=== PATIENT | female | born 1955 | race Caucasian/White ===

== ENCOUNTER 2020-09-02 11:09 | Inpatient (IN) | payer MEDICARE, MEDICAID, SELFPAY ==
[2020-09-02] VITALS (13 sets, daily range): BP systolic 137–173; BP diastolic 70–113; PULSE 79–84; RESP 16–20; TEMP 36.6–37.1; O2SAT 93–99; BMI 37.4; BMI 35.6
--- NOTE | 2020-09-02 11:23 | EKG12_ITS ---
Test Reason : SOB Blood Pressure : / mmHG Vent. Rate : 082 BPM Atrial Rate : 082 BPM P-R Int : 156 ms QRS Dur : 076 ms QT Int : 396 ms P-R-T Axes : 060 060 029 degrees QTc Int : 462 ms Normal sinus rhythm Septal infarct , age undetermined Abnormal ECG Confirmed by HEYDI ROSS, GODWIN ([id number]), fashion editor JASON PEREIRA ([id number]) on 09/06/2020 1:04:32 PM Referred By: MICHELLE/MARLEN Confirmed By:GODWIN SOLIZ MD
--- NOTE | 2020-09-02 11:30 | RAD_ITS ---
STUDY: X-RAY CHEST REASON FOR EXAM: Female, 65 years old. Worsening shortness of breath TECHNIQUE: Single AP portable view of the chest. COMPARISON: None. FINDINGS: EKG leads overlie the chest The lungs are expanded with superimposed interstitial edema, and bilateral pleural effusions, right greater than left. Findings suggest CHF but could also be seen with pneumonitis, or Covid pneumonia. Follow-up recommended to ensure resolution Normal size heart. Normal mediastinum and sol. Normal visualized pulmonary arteries. Normal visualized aortic arch and descending thoracic aorta. There are diffuse degenerative changes of the visualized thoracic spine. There is degenerative osteoarthritis of the bilateral shoulders. Sclerotic area within the right humeral head is likely a bone infarct. If however there is pain localized to this area, further evaluation with bone scan would be recommended There is no demonstrated abnormality of the visualized soft tissue structures of the upper abdomen. RAD/Chest 1 View (Portable) IMPRESSION: Diffuse interstitial edema with bilateral pleural effusions. Differential as described above, follow-up recommended to sure resolution. 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
--- NOTE | 2020-09-02 11:30 | EDS_ITS ---
HPI History of Present Illness Chief Complaint: Chest Pain Informant: patient Narrative Narrative: Patient is a 65-year-old female with a past medical history of COPD, CAD with stents, CHF who presents to the emergency department for shortness of breath and chest pain. She states that she has been feeling short of breath over the past 2 weeks. Has been progressively getting worse. She usually only wears supplemental oxygen at nighttime but has required it throughout the day. She is been wearing 3 L. She has had a mild cough but nonproductive of sputum. She denies any fevers or chills. No known sick contacts. She has been vaccinated for Covid. She does have chronic swelling of her lower extremities which do not feel worse than normal. She does have orthopnea. She denies any abdominal pain or nausea/vomiting/diarrhea. No urinary symptoms. She has a former smoking history. She has been using breathing treatments over the past week which have not been giving significant relief. At PCPs office she was satting in the mid 70s on 3 L. They did bump her O2 up and got her oxygen to the mid 90s. [facility] Medical History (Updated 09/02/20 @ 16:[address] Lukasz Roldan, ) Asthma Atrial fibrillation CHF (congestive heart failure) COPD (chronic obstructive pulmonary disease) Depression Diabetes type 2, controlled Former smoker HTN (hypertension) Hypothyroid Myocardial infarct On home O2 Home Medications albuterol sulfate 1 mg INHALATION Q6H PRN 09/02/20 [History Last Taken 09/02/20] atorvastatin 80 mg PO DAILY 09/02/20 [History Last Taken 09/02/20] bupropion HCl 300 mg PO DAILY 09/02/20 [History Last Taken 09/02/20] cholecalciferol (vitamin D3) [Vitamin D3] 50 mcg PO DAILY 09/02/20 [History Last Taken 09/02/20] fluticasone furoate-vilanterol [Breo Ellipta] 1 inh INHALATION DAILY 09/02/20 [History Last Taken 09/02/20] fluticasone propionate 1 spray INTRANASAL DAILY 09/02/20 [History Last Taken 09/02/20] furosemide 80 mg PO DAILY 09/02/20 [History Last Taken 09/02/20] insulin detemir U-100 [Levemir Flexpen] 35 unit SUBCUT QHS 09/02/20 [History Last Taken 09/01/20] insulin lispro See Protocol SUBCUT TID 09/02/20 [History Last Taken 09/02/20] ipratropium-albuterol [DuoNeb] 3 ml INHALATION Q4H PRN 09/02/20 [History Last Taken 09/02/20] levothyroxine 88 mcg PO DAILY 09/02/20 [History Last Taken 09/02/20] lisinopril 10 mg PO DAILY 09/02/20 [History Last Taken 09/02/20] lorazepam 0.5 mg PO DAILY PRN 09/02/20 [History Last Taken Unknown] lorazepam 1 mg PO QHS 09/02/20 [History Last Taken 09/01/20] metoprolol succinate 50 mg PO DAILY 09/02/20 [History Last Taken 09/02/20] montelukast 10 mg PO DAILY 09/02/20 [History Last Taken 09/02/20] paroxetine HCl 30 mg PO DAILY 09/02/20 [History Last Taken 09/02/20] trazodone 100 mg PO QHS 09/02/20 [History Last Taken 09/01/20] Allergy/AdvReac Type Severity Reaction Status Date / Time Sulfa (Sulfonamide Allergy Anaphylaxis Verified 09/02/20 11:11 Antibiotics) sulfur dioxide Allergy Anaphylaxis Verified 09/02/20 11:11 Surgical History (Updated 09/02/20 @ 11:18 by Alba Allen) H/O heart artery stent H/O right heart catheterization Tubal ligation status Social History Smoking Status: Former smoker ROS ROS ED Constitutional Constitutional ED: Denies chills or fever(s) Eyes Eyes: Denies change in vision ENT ENT ED: Denies epistaxis or rhinorrhea Cardiovascular Cardiovascular: Denies palpitations Respiratory/Chest Respiratory/Chest: Reports cough and dyspnea; Denies sputum Gastrointestinal Gastrointestinal: Denies abdominal pain, diarrhea, nausea or vomiting Genitourinary Genitourinary ED: Denies dysuria, hematuria or urinary frequency Musculoskeletal Musculoskeletal: Denies back pain or neck pain Integumentary Denies rash Neurologic Neurologic: Denies dizziness, headache(s) or weakness EXAM Physical Exam Const Vital Signs: 09/02/20 11:12 09/02/20 11:19 09/02/20 11:23 Temperature 98.6 F Temperature Source Temporal Pulse Rate 81 Respiratory Rate 20 H Respiratory Effort Short of Breath Respiratory Pattern Normal Blood Pressure 148/75 H Blood Pressure Mean 99 Pulse Ox 99 99 Oxygen Delivery Method Nasal Cannula Nasal Cannula Oxygen Flow Rate (L/min) 3 3 09/02/20 12:10 09/02/20 13:05 Temperature Temperature Source Pulse Rate 84 84 Respiratory Rate 18 18 Respiratory Effort Respiratory Pattern Blood Pressure 137/113 H 148/111 H Blood Pressure Mean 121 123 Pulse Ox 99 97 Oxygen Delivery Method Nasal Cannula Nasal Cannula Oxygen Flow Rate (L/min) 3 3 Positive well nourished and well developed General Appearance ED: well developed and NAD HEENT Reports normocephalic, head/scalp atraumatic and moist mucous membranes Eyes PERRL and EOMs intact bilaterally Neck supple Chest Wall inspection of chest normal Resp normal respiratory effort and clear to auscultation bilaterally Auscultation: Negative for rales, rhonchi or wheezes Cardio regular rate, regular rhythm and no murmurs GI normal to inspection, nondistended, normoactive bowel sounds and non-tender Palpation: soft; Negative for guarding or rebound tenderness present Back/Spine no CVA tenderness Extremity normal to inspection Extremity Narrative: Trace edema with chronic lymphedematous changes of bilateral lower extremities. General Extremety ED: Negative for tenderness Neuro oriented x3, CN's II-XII intact bilaterally and no sensory deficits noted Sensorium / Orientation: alert Motor Exam: strength 5/5 throughout Psych mental status grossly normal Skin no rashes or lesions noted MDM MDM MDM Narrative Medical decision making narrative: Patient presents to the ED for shortness of breath over the past 2 weeks. This has been associate with a nonproductive cough. She does get intermittent chest pains. She was at her PCPs office today and was found to be hypoxic. She was transferred to the ED. She is on supplemental oxygen satting 99% currently. Will check basic lab work, EKG and chest x-ray. Patient's lab work did not reveal a high white blood cell count. She is mildly anemic. Potassium is mildly low but otherwise no significant electrolyte disturbance. Her blood sugar is 303. Her BNP is mildly elevated. Troponin within normal limits. Given patient's hypoxia will require hospitalization. She is given a dose of Lasix here in the ED. She otherwise has remained stable throughout ED stay. She understands and is agreeable with this plan. Lab Data Labs: Laboratory Results - last 24 hr 09/02/20 09/02/20 09/02/20 11:25 11:25 11:25 WBC 7.7 RBC 3.88 L Hgb 11.5 L Hct 35.7 L MCV 92.0 MCH 29.6 MCHC 32.2 RDW Std Deviation 43.6 RDW Coeff of Magen 13.1 Plt Count 164 MPV 10.9 Immature Gran % (Auto) 0.300 Neut % (Auto) 79.1 H Lymph % (Auto) 13.5 L [place] % (Auto) 5.7 Eos % (Auto) 0.9 Baso % (Auto) 0.5 Absolute Neuts (auto) 6.1 Absolute Lymphs (auto) 1.04 Nucleated RBC % 0 Sodium 138 Potassium 3.2 L Chloride 103 Carbon Dioxide 33.0 H Anion Gap 2 L BUN 13 Creatinine 0.83 Estim Creat Clear Calc 61.62 Est GFR (MDRD) Af Amer 89 Est GFR (MDRD) Non-Af 74 BUN/Creatinine Ratio 15.7 Glucose 303 H Calcium 8.7 Magnesium 1.7 Troponin I High Sens 18.8 B-Natriuretic Peptide 138.8 H Radiography Chest X-Ray - ED: 1 View (Portable x-ray interpreted by myself. Right-sided pleural effusion worse than left. Pulmonary vascular congestion present. Agree with radiologist interpretation.) Diagnostic Testing: Radiology Impression Chest X-Ray 09/02/20 11:30 IMPRESSION: Diffuse interstitial edema with bilateral pleural effusions. Differential as described above, follow-up recommended to sure resolution. Likely bone infarct in the right humeral head Electronically Signed: Ken Marquez MD at 11:49 EDT , Service support , EKG Initial EKG: Attestation: I personally reviewed and interpreted this EKG as follows: (R ate of 82 bpm and normal sinus rhythm. Normal intervals. Normal axis. No significant ST elevations or depressions. No T wave abnormalities.) Discharge Plan Dx/Rx/DC Orders Clinical Impression: Acute exacerbation of CHF (congestive heart failure), Hypoxia Disposition Disposition: Acute Care Hospital [facility] Discharge Date/Time: 09/02/20 14:28
[2020-09-02 11:31] LABS: Absolute Lymphocyte Count 1.04 X10^3/uL (0.83-4.51); Absolute Neutrophil Count 6.1 X10^3/uL (2.0-7.7); Basophil# 0.04 X10^3/uL; Basophil% 0.5 % (0-1); Eosinophil# 0.07 X10^3/uL; Eosinophils% 0.9 % (0-5); Hematocrit 35.7 % (37-47); Hemoglobin 11.5 g/dL (12.0-15.0); Lymphocyte # 1.04 X10^3/ul (0.83-4.51); Lymphocyte % 13.5 % (19-41); Mean Corp Hgb Conc 32.2 g/dL (32-36); Mean Corpuscular Hgb 29.6 pg (27.0-32.0); Mean Platelet Vol. 10.9 fl (6.2-12.0); Monocyte# 0.44 X10^3/uL; Monocyte% 5.7 % (0-10); NRBC Flagged by Analyzer 0 % (0-5); Neutrophil # 6.07 X10^3/uL (2.7-7.7); Neutrophil % 79.1 % (47-70); Platelet Count 164 K/mm3 (150-450); RBC Distribution Width CV 13.1 % (11.6-14.6); RBC Distribution Width SD 43.6 fl (35.1-43.9); Red Blood Count 3.88 M/mm3 (4.2-5.4); White Blood Count 7.7 K/mm3 (4.4-11.0)
[2020-09-02 11:49] LABS: BNP,B-Type NATRIURETIC PEPTIDE 138.8 pg/mL (0-100)
[2020-09-02 12:00] LABS: Anion Gap 2 (5-15); BUN 13 mg/dL (7-18); BUN/Creat Ratio 15.7 RATIO (10-20); Calcium,Total 8.7 mg/dL (8.5-10.1); Chloride 103 mmol/L (98-107); Creatinine, Serum 0.83 mg/dL (0.55-1.02); EST Glomerular Filtration Rate 74 mL/min (>60); Est Glom Filt Rate - Afr Amer 89 mL/min (>60); Estimated Creatinine Clearance 61.62 ml/min; Glucose 303 mg/dL (74-106); Magnesium 1.7 mg/dL (1.6-2.6); Potassium 3.2 mmol/L (3.5-5.1); Sodium Level 138 mmol/L (136-145); Troponin-I HS 18.8 pg/mL (3.0-53.7)
[2020-09-02] MEDS: Potassium Chloride Oral Tablet 20 MEQ 40 MEQ PO (12:18)
[2020-09-02] MEDS: Furosemide 40 MG/4 ML Vial IV ×3 (12:18→22:31)
--- NOTE | 2020-09-02 14:01 | HP.PCM.HOS_ITS ---
HPI - General General Date of Admission: 09/02/20 HPI Narrative SONA WILSON, is a 65 F who presents with shortness of breath over the last 2 weeks. She has a history of COPD and heart failure and she has chronic edema in her lower extremities which she has noticed that they have gotten any worse however she has noticed that she has difficulty lying flat because of worsening shortness of breath and thinks it may be the right leg might be a little bit more swollen than the left, she does deny any calf pain. She normally wears 3 L at night to sleep but she has been wearing oxygen throughout the day she says that this happens on occasion so this is not completely atypical. Troponin in the ER was unremarkable chest x-ray demonstrated a right-sided pleural effusion as well as vascular congestion. [facility] Medical History (Updated 09/02/20 @ 16:[address] Lukasz Roldan, ) Asthma Atrial fibrillation CHF (congestive heart failure) COPD (chronic obstructive pulmonary disease) Depression Diabetes type 2, controlled Former smoker HTN (hypertension) Hypothyroid Myocardial infarct On home O2 Home Medications albuterol sulfate 1 mg INHALATION Q6H PRN 09/02/20 [History Last Taken 09/02/20] atorvastatin 80 mg PO DAILY 09/02/20 [History Last Taken 09/02/20] bupropion HCl 300 mg PO DAILY 09/02/20 [History Last Taken 09/02/20] cholecalciferol (vitamin D3) [Vitamin D3] 50 mcg PO DAILY 09/02/20 [History Last Taken 09/02/20] fluticasone furoate-vilanterol [Breo Ellipta] 1 inh INHALATION DAILY 09/02/20 [History Last Taken 09/02/20] fluticasone propionate 1 spray INTRANASAL DAILY 09/02/20 [History Last Taken 09/02/20] furosemide 80 mg PO DAILY 09/02/20 [History Last Taken 09/02/20] insulin detemir U-100 [Levemir Flexpen] 35 unit SUBCUT QHS 09/02/20 [History Last Taken 09/01/20] insulin lispro See Protocol SUBCUT TID 09/02/20 [History Last Taken 09/02/20] ipratropium-albuterol [DuoNeb] 3 ml INHALATION Q4H PRN 09/02/20 [History Last Taken 09/02/20] levothyroxine 88 mcg PO DAILY 09/02/20 [History Last Taken 09/02/20] lisinopril 10 mg PO DAILY 09/02/20 [History Last Taken 09/02/20] lorazepam 0.5 mg PO DAILY PRN 09/02/20 [History Last Taken Unknown] lorazepam 1 mg PO QHS 09/02/20 [History Last Taken 09/01/20] metoprolol succinate 50 mg PO DAILY 09/02/20 [History Last Taken 09/02/20] montelukast 10 mg PO DAILY 09/02/20 [History Last Taken 09/02/20] paroxetine HCl 30 mg PO DAILY 09/02/20 [History Last Taken 09/02/20] trazodone 100 mg PO QHS 09/02/20 [History Last Taken 09/01/20] Allergy/AdvReac Type Severity Reaction Status Date / Time Sulfa (Sulfonamide Allergy Anaphylaxis Verified 09/02/20 11:11 Antibiotics) sulfur dioxide Allergy Anaphylaxis Verified 09/02/20 11:11 Family History (Updated 09/02/20 @ 18:[address] Lalo Cooper MD) Grandmother Diabetes Mother Heart disease Surgical History (Updated 09/02/20 @ 11:18 by Alba Allen) H/O heart artery stent H/O right heart catheterization Tubal ligation status Social History Smoking Status: Former smoker ROS Constitutional Constitutional: Denies chills, fatigue, fever(s) or malaise Eyes Eyes: Denies blurry vision ENT HEENT: Denies headache(s) or nasal discharge Cardiovascular Cardiovascular: Reports dyspnea on exertion and orthopnea; Denies chest pain or syncope Respiratory/Chest Respiratory/Chest: Reports cough and shortness of breath at rest; Denies sh ortness of breath with exertion Gastrointestinal Gastrointestinal: Denies constipation, diarrhea, nausea or vomiting Genitourinary Genitourinary: Denies dysuria Neurologic Neurologic: Denies focal weakness, numbness or tremor(s) Psychiatric Psychiatric: Denies anxiety or depression Vital Signs Vital Signs Vital Signs: 09/02/20 11:12 09/02/20 11:19 09/02/20 11:23 Temperature 98.6 F Temperature Source Temporal Pulse Rate 81 Respiratory Rate 20 H Respiratory Effort Short of Breath Respiratory Pattern Normal Blood Pressure 148/75 H Blood Pressure Mean 99 Pulse Ox 99 99 Oxygen Delivery Method Nasal Cannula Nasal Cannula Oxygen Flow Rate (L/min) 3 3 09/02/20 12:10 09/02/20 13:05 Temperature Temperature Source Pulse Rate 84 84 Respiratory Rate 18 18 Respiratory Effort Respiratory Pattern Blood Pressure 137/113 H 148/111 H Blood Pressure Mean 121 123 Pulse Ox 99 97 Oxygen Delivery Method Nasal Cannula Nasal Cannula Oxygen Flow Rate (L/min) 3 3 Weight Weight: 224 lb 13.944 oz Body Mass Index (BMI) 37.4 Physical Exam Const alert, oriented x3 and no apparent distress General Appearance: cooperative HEENT normocephalic Mouth: dry mucous membranes Eyes PERRL, EOMs intact bilaterally and conjunctivae normal Neck supple and no JVD Resp normal respiratory effort, no retractions, no use of accessory muscles and clear to auscultation bilaterally Auscultation: diminished lung sounds; Negative for crackles, rales, rhonchi or wheezes Cardio regular rate, regular rhythm, S1 normal heart sound, S2 normal heart sound and no murmurs GI soft to palpation, non-tender and non-distended; Negative for hepatosplenomegaly Extremity no clubbing, cyanosis or edema Skin no rashes or lesions noted General Skin Exam: venous stasis Neuro no focal motor deficits and no sensory deficits noted Psych affect normal Appearance: appropriate Results Lab / Micro Data Result Diagrams: 09/02/20 11:25 09/02/20 11:25 Labs: Laboratory Results - last 24 hr 09/02/20 09/02/20 09/02/20 11:25 11:25 11:25 WBC 7.7 RBC 3.88 L Hgb 11.5 L Hct 35.7 L MCV 92.0 MCH 29.6 MCHC 32.2 RDW Std Deviation 43.6 RDW Coeff of Magen 13.1 Plt Count 164 MPV 10.9 Immature Gran % (Auto) 0.300 Neut % (Auto) 79.1 H Lymph % (Auto) 13.5 L [place] % (Auto) 5.7 Eos % (Auto) 0.9 Baso % (Auto) 0.5 Absolute Neuts (auto) 6.1 Absolute Lymphs (auto) 1.04 Nucleated RBC % 0 Sodium 138 Potassium 3.2 L Chloride 103 Carbon Dioxide 33.0 H Anion Gap 2 L BUN 13 Creatinine 0.83 Estim Creat Clear Calc 61.62 Est GFR (MDRD) Af Amer 89 Est GFR (MDRD) Non-Af 74 BUN/Creatinine Ratio 15.7 Glucose 303 H Calcium 8.7 Magnesium 1.7 Troponin I High Sens 18.8 B-Natriuretic Peptide 138.8 H Micro: Microbiology 09/02/20 11:56 SARS-CoV-2 Antigen (Rapid) - Final Mucosa - Nose Radiology Impression Chest X-Ray 09/02/20 11:30 IMPRESSION: Diffuse interstitial edema with bilateral pleural effusions. Differential as described above, follow-up recommended to sure resolution. 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 Acute on chronic CHF exacerbation of unknown type/HTN/HLD/CAD status post stent -We will place her on IV Lasix 3 times daily and obtain an echo as we have no cardiac history in our system -We will continue with her home blood pressure medications -She does not appear to be on aspirin or Plavix or a statin -We will obtain a lower extremity duplex secondary to her believe that her right leg is bigger than her left 2. DM2 -Continue with 35 units of Lantus overnight and placed on a sliding scale insulin -Accu-Cheks AC at bedtime 3. COPD -Does not appear to be in exacerbation, will continue with her home inhalers -If no improvement in her respiratory status in a day or 2 with diuresis, may need to add steroids -Continue with montelukast DVT: Lovenox Charges/Coding Visit Charges Inpatient E&M: 12644 Init Hosp L3
--- NOTE | 2020-09-02 14:20 | ED.RN ---
UPDATED NURSE [facility]EMAN[facility] AT [facility].
--- NOTE | 2020-09-02 14:59 | ECHOD_ITS ---
Reason For Study: CHF Procedure This was a 2D Doppler, Color Flow transthoracic echocardiogram. The study was technically difficult. Exam performed portable in patient room. Left Ventricle Normal LV size. The estimated ejection fraction is 55 %. Left ventricular systolic function is normal. Stage 2 diastolic dysfunction. No regional wall motion abnormalities noted. Right Ventricle Normal RV size. Normal systolic function. Atria Normal left atrium. Normal right atrium. Mitral Valve Moderate focal mitral valve calcification of the anterior leaflet. Moderate (2+) eccentric mitral valve insufficiency. Tricuspid Valve Normal tricuspid valve. Moderately severe (3+) tricuspid valve insufficiency. Pulmonary artery systolic pressure is 76 mmHg. Severe pulmonary hypertension. Aortic Valve Trisinus/trileaflet aortic valve. Mild (1+) aortic valve insufficiency. Pulmonic Valve Normal pulmonic valve. Great Vessels Normal aortic root. The pulmonary artery is normal size. No collapse of the inferior vena cava. Pericardium/Pleural No pericardial effusion. Medication Definity deferred d/t elevated PAP. MMode/2D Measurements & Calculations LVIDd: 4.1 cm IVSd: 1.1 cm Ao root diam: 3.3 cm LVIDs: 2.9 cm LVPWd: 1.1 cm RVDd: 3.1 cm FS: 28.4 % LAV(MOD-bp): 52.4 ml LA A4 area: 19.5 cm2 LA dimension(2D): 4.8 cm LAV(MOD-bp) Indexed: 25.6 ml/m2 LAV(MOD-sp2): 55.4 ml LAV(MOD-sp4): 47.8 ml RA A4 area: 14.7 cm2 Time Measurements MV dec time: 0.18 sec Doppler Measurements & Calculations MV E max timothy: 171.5 cm/sec Lat Peak E' Timothy: 5.4 cm/sec Med Peak E' Timothy: 5.2 cm/sec MV A max timothy: 90.0 cm/sec E/E' lat: 32.0 E/E' med: 32.8 MV E/A: 1.9 Ao V2 max: 114.4 cm/sec LV V1 max: 74.6 cm/sec PA V2 max: 100.7 cm/sec Ao max P.2 mmHg LV V1 max P.2 mmHg PI end-d timothy: 144.1 cm/sec TR max timothy: 422.6 cm/sec TR max P.4 mmHg ECHO/Echo Complete Interpretation Summary Normal LV size. The estimated ejection fraction is 55 %. Left ventricular systolic function is normal. Stage 2 diastolic dysfunction. Pulmonary artery systolic pressure is 76 mmHg. Severe pulmonary hypertension. Moderate (2+) eccentric mitral valve insufficiency. Ordering Physician: Lalo Cooper Referring Physician: [place] PETIT Performed By: Nancie, Rose, RDCS, RVT
[2020-09-02] MEDS: 0.9% Saline Lock 10 ML Syringe IV ×2 (15:41→22:31)
[2020-09-02] MEDS: Insulin Lispro 100 UNIT/ML INSULN.PEN SC ×2 (17:29→22:23)
[2020-09-02 17:31] LABS: Bedside Glucose 235 mg/dL (70-110)
--- NOTE | 2020-09-02 18:05 | VDLE_ITS ---
Reason For Study: SWELLING RIGHT GSV is normal. CFV is compressible, spontaneous, phasic, competent and demonstrates normal augmentation. FV is compressible, spontaneous, phasic, competent and demonstrates normal augmentation. POP V is compressible, spontaneous, phasic, competent and demonstrates normal augmentation. T/P Trunk is compressible. PTV is compressible. RT PerV is compressible. Procedure This is a venous duplex using B-mode, color flow and spectral Doppler. Exam performed portable in patient room. The exam was diagnostic. A preliminary report was called and/or faxed to Graciela RN & PCU. VL/Venous Duplex US, Unilateral Interpretation Summary There is no evidence of right lower extremity deep vein thrombosis. Right great saphenous vein appears patent and compressible segmentally. Ordering Physician: Lalo Cooper Referring Physician: Froy Gonzales Performed By: Peyton Shaw RVT, RDCS and Student
[2020-09-02] MEDS: traZODone 100 MG Tablet PO (22:23)
[2020-09-02] MEDS: LORazepam 1 MG Tablet PO (22:23)
[2020-09-02 22:36] LABS: Bedside Glucose 197 mg/dL (70-110)
[2020-09-03] VITALS (11 sets, daily range): BP systolic 149–170; BP diastolic 73–96; PULSE 84–91; RESP 17–18; TEMP 36.6–36.7; O2SAT 93–98
[2020-09-03 06:02] LABS: Absolute Neutrophil Count 5.5 X10^3/uL (2.0-7.7); Basophil# 0.04 X10^3/uL; Basophil% 0.6 % (0-1); Eosinophils% 1.4 % (0-5); Hematocrit 35.4 % (37-47); Hemoglobin 11.2 g/dL (12.0-15.0); Lymphocyte % 15.2 % (19-41); Mean Corp Hgb Conc 31.6 g/dL (32-36); Mean Corpuscular Hgb 29.4 pg (27.0-32.0); Mean Corpuscular Volume 92.9 fL (81-99); Mean Platelet Vol. 10.8 fl (6.2-12.0); Monocyte# 0.53 X10^3/uL; Monocyte% 7.3 % (0-10); NRBC Flagged by Analyzer 0 % (0-5); Neutrophil # 5.45 X10^3/uL (2.7-7.7); Neutrophil % 74.9 % (47-70); Platelet Count 166 K/mm3 (150-450); RBC Distribution Width SD 44.1 fl (35.1-43.9); Red Blood Count 3.81 M/mm3 (4.2-5.4); White Blood Count 7.3 K/mm3 (4.4-11.0)
[2020-09-03] MEDS: Furosemide 40 MG/4 ML Vial IV ×3 (06:17→20:54)
[2020-09-03] MEDS: Levothyroxine 88 MCG Tablet PO (06:17)
[2020-09-03] MEDS: 0.9% Saline Lock 10 ML Syringe IV ×3 (06:17→20:53)
[2020-09-03] MEDS: Insulin Lispro 100 UNIT/ML INSULN.PEN SC ×5 (06:24→20:53)
[2020-09-03 06:30] LABS: Bedside Glucose 199 mg/dL (70-110)
[2020-09-03 06:38] LABS: Anion Gap 6 (5-15); BUN 12 mg/dL (7-18); BUN/Creat Ratio 15.9 RATIO (10-20); Calcium,Total 8.6 mg/dL (8.5-10.1); Chloride 106 mmol/L (98-107); Creatinine, Serum 0.75 mg/dL (0.55-1.02); EST Glomerular Filtration Rate 82 mL/min (>60); Est Glom Filt Rate - Afr Amer 99 mL/min (>60); Estimated Creatinine Clearance 68.19 ml/min; Glucose 222 mg/dL (74-106); Potassium 3.3 mmol/L (3.5-5.1); Sodium Level 143 mmol/L (136-145)
[2020-09-03] MEDS: Potassium Chloride Oral Tablet 20 MEQ 40 MEQ PO (07:43)
[2020-09-03] MEDS: Enoxaparin 40 MG/0.4 ML Syringe SC (09:17)
[2020-09-03] MEDS: Lisinopril 10 MG Tablet PO (09:17)
[2020-09-03] MEDS: buPROPion (XL) 300 MG TABLET.XL PO (09:17)
[2020-09-03] MEDS: Montelukast 10 MG Tablet PO (09:17)
[2020-09-03] MEDS: Metoprolol(XL)Succ 50 MG Tablet PO (09:17)
[2020-09-03] MEDS: PARoxetine 10 MG Tablet 30 MG PO (09:17)
[2020-09-03] MEDS: Fluticasone 0.05% 1 SPRAY NASAL.SRY NASAL (09:17)
--- NOTE | 2020-09-03 10:21 | CASEMGMT ---
Patient is from [facility]. GREG spoke with patient and she plans on returning to [facility] at discharge. She will need transportation. GREG faxed updates to [facility] and wrote on fax faces sheet that she may be discharged over the weekend. Green sheet on chart. Plan: d/c back to [facility] CHIQUI DASILVA
[2020-09-03 11:16] LABS: Bedside Glucose 298 mg/dL (70-110)
--- NOTE | 2020-09-03 11:17 | PN.HOSP_ITS ---
Subjective Subjective Breathing easier today though still needing 3 L of oxygen during the day Objective Data Objective Data Vital Signs: Vital Signs Temp Pulse Resp BP Pulse Ox 98.0 F 89 18 170/80 H 98 09/03/20 09:13 09/03/20 09:17 09/03/20 09:13 09/03/20 09:13 09/03/20 09:13 Oxygen Flow Rate (L/min) 3 Oxygen Delivery Method Nasal Cannula Weight: 214 lb 1.102 oz Body Mass Index (BMI) 35.6 Intake & Output: Intake and Output for Last 24 Hours 09/02/20 09/03/20 09/04/20 03:59 03:59 03:59 Intake Total 560 / 560 Balance 560 / 560 Lab / Micro Data Result Diagrams: 09/03/20 05:40 09/03/20 05:40 Labs: Laboratory Results - last 24 hr 09/02/20 09/02/20 09/02/20 11:25 11:25 11:25 WBC 7.7 RBC 3.88 L Hgb 11.5 L Hct 35.7 L MCV 92.0 MCH 29.6 MCHC 32.2 RDW Std Deviation 43.6 RDW Coeff of Magen 13.1 Plt Count 164 MPV 10.9 Immature Gran % (Auto) 0.300 Neut % (Auto) 79.1 H Lymph % (Auto) 13.5 L [place] % (Auto) 5.7 Eos % (Auto) 0.9 Baso % (Auto) 0.5 Absolute Neuts (auto) 6.1 Absolute Lymphs (auto) 1.04 Nucleated RBC % 0 Sodium 138 Potassium 3.2 L Chloride 103 Carbon Dioxide 33.0 H Anion Gap 2 L BUN 13 Creatinine 0.83 Estim Creat Clear Calc 61.62 Est GFR (MDRD) Af Amer 89 Est GFR (MDRD) Non-Af 74 BUN/Creatinine Ratio 15.7 Glucose 303 H Calcium 8.7 Magnesium 1.7 Troponin I High Sens 18.8 B-Natriuretic Peptide 138.8 H POC Glucose 09/02/20 09/02/20 09/03/20 17:23 22:19 05:40 WBC 7.3 RBC 3.81 L Hgb 11.2 L Hct 35.4 L MCV 92.9 MCH 29.4 MCHC 31.6 L RDW Std Deviation 44.1 H RDW Coeff of Magen 13.0 Plt Count 166 MPV 10.8 Immature Gran % (Auto) 0.600 Neut % (Auto) 74.9 H Lymph % (Auto) 15.2 L [place] % (Auto) 7.3 Eos % (Auto) 1.4 Baso % (Auto) 0.6 Absolute Neuts (auto) 5.5 Absolute Lymphs (auto) 1.10 Nucleated RBC % 0 Sodium Potassium Chloride Carbon Dioxide Anion Gap BUN Creatinine Estim Creat Clear Calc Est GFR (MDRD) Af Amer Est GFR (MDRD) Non-Af BUN/Creatinine Ratio Glucose Calcium Magnesium Troponin I High Sens B-Natriuretic Peptide POC Glucose 235 H 197 H 09/03/20 09/03/20 09/03/20 05:40 06:23 11:08 WBC RBC Hgb Hct MCV MCH MCHC RDW Std Deviation RDW Coeff of Magen Plt Count MPV Immature Gran % (Auto) Neut % (Auto) Lymph % (Auto) [place] % (Auto) Eos % (Auto) Baso % (Auto) Absolute Neuts (auto) Absolute Lymphs (auto) Nucleated RBC % Sodium 143 Potassium 3.3 L Chloride 106 Carbon Dioxide 31.0 Anion Gap 6 BUN 12 Creatinine 0.75 Estim Creat Clear Calc 68.19 Est GFR (MDRD) Af Amer 99 Est GFR (MDRD) Non-Af 82 BUN/Creatinine Ratio 15.9 Glucose 222 H Calcium 8.6 Magnesium Troponin I High Sens B-Natriuretic Peptide POC Glucose 199 H 298 H Micro: Microbiology 09/02/20 11:56 Mucosa - Nose SARS-CoV-2 Antigen (Rapid) - Final Radiography Diagnostic Testing: Radiology Impression Chest X-Ray 09/02/20 11:30 IMPRESSION: Diffuse interstitial edema with bilateral pleural effusions. Differential as described above, follow-up recommended to sure resolution. Likely bone infarct in the right humeral head Electronically Signed: Ken Marquez MD at 11:49 EDT , Service support , Echocardiogram 09/02/20 14:59 Interpretation Summary Normal LV size. The estimated ejection fraction is 55 %. Left ventricular systolic function is normal. Stage 2 diastolic dysfunction. Pulmonary artery systolic pressure is 76 mmHg. Severe pulmonary hypertension. Moderate (2+) eccentric mitral valve insufficiency. _ Ordering Physician: Lalo Cooper Referring Physician: [place] PETIT Performed By: Rose Canada, RDCS, RVT Physical Exam Const alert, oriented x3 and no apparent distress General Appearance: cooperative HEENT normocephalic Eyes PERRL, EOMs intact bilaterally and conjunctivae normal Neck supple and no JVD Resp normal respiratory effort, no retractions, no use of accessory muscles and clear to auscultation bilaterally Auscultation: diminished lung sounds; Negative for crackles, rales, rhonchi or wheezes Cardio regular rate, regular rhythm, S1 normal heart sound, S2 normal heart sound and no murmurs GI soft to palpation, non-tender and non-distended; Negative for hepatosplenomegaly Extremity no clubbing, cyanosis or edema Skin no rashes or lesions noted General Skin Exam: venous stasis Neuro no focal motor deficits and no sensory deficits noted Psych affect normal Appearance: appropriate Assessment & Plan Assessment/Plan (1) Diabetes type 2, controlled: (2) CHF (congestive heart failure): PLAN: 1. Acute on chronic diastolic CHF exacerbation and severe pulmonary hypertension/HTN/HLD/CAD status post stent -We will place her on IV Lasix 3 times daily -Echo with a normal EF and stage II diastolic dysfunction with pulmonary artery pressures of 72 mmHg -We will continue with her home blood pressure medications -She does not appear to be on aspirin or Plavix or a statin -We will obtain a lower extremity duplex secondary to her believe that her right leg is bigger than her left 2. DM2 -Continue with 35 units of Lantus overnight and placed on a sliding scale insulin -Accu-Cheks AC at bedtime 3. COPD -Does not appear to be in exacerbation, will continue with her home inhalers -If no improvement in her respiratory status in a day or 2 with diuresis, may need to add steroids -Continue with montelukast DVT: Lovenox Charges/Coding Visit Charges Inpatient E&M: 05946 Subs Hosp L2
[2020-09-03 17:05] LABS: Bedside Glucose 272 mg/dL (70-110)
[2020-09-03] MEDS: Carvedilol 6.25 MG Tablet PO (20:54)
[2020-09-03] MEDS: traZODone 100 MG Tablet PO (20:54)
[2020-09-03] MEDS: LORazepam 1 MG Tablet PO (20:54)
[2020-09-03 21:26] LABS: Bedside Glucose 322 mg/dL (70-110)
[2020-09-04] VITALS (9 sets, daily range): BP systolic 120–166; BP diastolic 64–86; PULSE 75–89; RESP 16–20; TEMP 36.3–36.7; O2SAT 95–98
[2020-09-04] MEDS: Levothyroxine 88 MCG Tablet PO (05:42)
[2020-09-04] MEDS: 0.9% Saline Lock 10 ML Syringe IV ×3 (05:43→21:40)
[2020-09-04] MEDS: Furosemide 40 MG/4 ML Vial IV ×3 (05:43→21:40)
[2020-09-04 07:54] LABS: Anion Gap 4 (5-15); BUN 13 mg/dL (7-18); BUN/Creat Ratio 16.4 RATIO (10-20); Calcium,Total 8.8 mg/dL (8.5-10.1); Chloride 101 mmol/L (98-107); Cholesterol 209 mg/dL (200); Creatinine, Serum 0.79 mg/dL (0.55-1.02); EST Glomerular Filtration Rate 78 mL/min (>60); Est Glom Filt Rate - Afr Amer 94 mL/min (>60); Estimated Creatinine Clearance 64.74 ml/min; Glucose 299 mg/dL (74-106); High Density Lipoprotein 43 mg/dL; Potassium 3.5 mmol/L (3.5-5.1); Sodium Level 138 mmol/L (136-145); Triglycerides 101 mg/dL; Very Low Density Lipoprotein 20 mg/dL (5-40)
[2020-09-04] MEDS: Insulin Lispro 100 UNIT/ML INSULN.PEN SC ×4 (08:35→21:40)
[2020-09-04 08:50] LABS: Bedside Glucose 310 mg/dL (70-110)
--- NOTE | 2020-09-04 11:06 | PN.HOSP_ITS ---
Subjective Subjective Feels little bit better today, still requiring 3 L nasal cannula at rest. Echo did demonstrate severe pulmonary hypertension therefore will just need to continue with diuresis. Objective Data Objective Data Vital Signs: Vital Signs Temp Pulse Resp BP Pulse Ox 97.4 F L 84 18 141/86 H 95 09/04/20 08:43 09/04/20 08:43 09/04/20 08:43 09/04/20 08:43 09/04/20 08:43 Oxygen Flow Rate (L/min) 3 Oxygen Delivery Method Nasal Cannula Weight: 209 lb 10.554 oz Body Mass Index (BMI) 35.6 Intake & Output: Intake and Output for Last 24 Hours 09/03/20 09/04/20 09/05/20 03:59 03:59 03:59 Intake Total 560 / 560 1020 / 1020 120 / 120 Output Total 450 / 450 Balance 560 / 560 570 / 570 120 / 120 Lab / Micro Data Result Diagrams: 09/03/20 05:40 09/04/20 06:49 Labs: Laboratory Results - last 24 hr 09/03/20 09/03/20 09/03/20 11:08 16:36 20:51 Sodium Potassium Chloride Carbon Dioxide Anion Gap BUN Creatinine Estim Creat Clear Calc Est GFR (MDRD) Af Amer Est GFR (MDRD) Non-Af BUN/Creatinine Ratio Glucose Calcium Triglycerides Cholesterol LDL Cholesterol VLDL Cholesterol HDL Cholesterol POC Glucose 298 H 272 H 322 H 09/04/20 09/04/20 06:49 08:34 Sodium 138 Potassium 3.5 Chloride 101 Carbon Dioxide 33.0 H Anion Gap 4 L BUN 13 Creatinine 0.79 Estim Creat Clear Calc 64.74 Est GFR (MDRD) Af Amer 94 Est GFR (MDRD) Non-Af 78 BUN/Creatinine Ratio 16.4 Glucose 299 H Calcium 8.8 Triglycerides 101 Cholesterol 209 H LDL Cholesterol 146 H VLDL Cholesterol 20 HDL Cholesterol 43 POC Glucose 310 H Micro: Microbiology 09/02/20 11:56 Mucosa - Nose SARS-CoV-2 Antigen (Rapid) - Final Radiography Diagnostic Testing: Radiology Impression Venous Doppler Study 09/02/20 18:05 Interpretation Summary There is no evidence of right lower extremity deep vein thrombosis. Right great saphenous vein appears patent and compressible segmentally. Ordering Physician: Lalo Cooper Referring Physician: Froy Gonzales Performed By: Colin LOBO RDCS, Peyton and Student Physical Exam Const alert, oriented x3 and no apparent distress General Appearance: cooperative HEENT normocephalic Eyes PERRL, EOMs intact bilaterally and conjunctivae normal Neck supple and no JVD Resp normal respiratory effort, no retractions, no use of accessory muscles and clear to auscultation bilaterally Auscultation: diminished lung sounds; Negative for crackles, rales, rhonchi or wheezes Cardio regular rate, regular rhythm, S1 normal heart sound, S2 normal heart sound and no murmurs GI soft to palpation, non-tender and non-distended; Negative for hepatosplenomegaly Extremity no clubbing, cyanosis or edema Skin no rashes or lesions noted General Skin Exam: venous stasis Neuro no focal motor deficits and no sensory deficits noted Psych affect normal Appearance: appropriate Assessment & Plan Assessment/Plan (1) Diabetes type 2, controlled: (2) CHF (congestive heart failure): PLAN: 1. Acute on chronic diastolic CHF exacerbation and severe pulmonary hypertension/HTN/HLD/CAD status post stent -We will place her on IV Lasix 3 times daily -Echo with a normal EF and stage II diastolic dysfunction with pulmonary artery pressures of 72 mmHg -We will continue with her home blood pressure medications -She does not appear to be on aspirin or Plavix or a statin -Venous Doppler negative for DVT in her right leg 2. DM2 -Continue with 30 units units of Lantus twice daily and placed on a sliding scale insulin and make adjustments as necessary -Accu-Cheks AC at bedtime 3. COPD -Does not appear to be in exacerbation, will continue with her home inhalers -If no improvement in her respiratory status in a day or 2 with diuresis, may need to add steroids -Continue with montelukast DVT: Lovenox Charges/Coding Visit Charges Inpatient E&M: 23325 Subs Hosp L2
[2020-09-04] MEDS: Fluticasone 0.05% 1 SPRAY NASAL.SRY NASAL (11:51)
[2020-09-04] MEDS: Carvedilol 6.25 MG Tablet PO ×2 (11:51→21:39)
[2020-09-04] MEDS: Enoxaparin 40 MG/0.4 ML Syringe SC (11:52)
[2020-09-04] MEDS: Montelukast 10 MG Tablet PO (11:53)
[2020-09-04] MEDS: buPROPion (XL) 300 MG TABLET.XL PO (11:53)
[2020-09-04] MEDS: Lisinopril 20 MG Tablet PO (11:54)
[2020-09-04] MEDS: Insulin Lispro 100 UNIT/ML INSULN.PEN 10 UNIT SC ×2 (11:55→17:17)
[2020-09-04 12:05] LABS: Bedside Glucose 392 mg/dL (70-110)
[2020-09-04 17:21] LABS: Bedside Glucose 242 mg/dL (70-110)
[2020-09-04] MEDS: LORazepam 1 MG Tablet PO (21:39)
[2020-09-04] MEDS: traZODone 100 MG Tablet PO (21:39)
[2020-09-04] MEDS: PARoxetine 10 MG Tablet 30 MG PO (21:39)
[2020-09-04 22:20] LABS: Bedside Glucose 300 mg/dL (70-110)
[2020-09-05] VITALS (12 sets, daily range): BP systolic 133–162; BP diastolic 65–70; PULSE 81–107; RESP 16–17; TEMP 36.6–36.9; O2SAT 3–99
[2020-09-05] MEDS: Levothyroxine 88 MCG Tablet PO (05:49)
[2020-09-05] MEDS: Furosemide 40 MG/4 ML Vial IV ×3 (05:50→22:04)
[2020-09-05] MEDS: 0.9% Saline Lock 10 ML Syringe IV ×3 (05:51→22:04)
[2020-09-05 06:34] LABS: Anion Gap 4 (5-15); BUN 15 mg/dL (7-18); BUN/Creat Ratio 20.7 RATIO (10-20); Chloride 101 mmol/L (98-107); Creatinine, Serum 0.72 mg/dL (0.55-1.02); EST Glomerular Filtration Rate 86 mL/min (>60); Est Glom Filt Rate - Afr Amer 104 mL/min (>60); Estimated Creatinine Clearance 71.03 ml/min; Glucose 231 mg/dL (74-106); Potassium 3.4 mmol/L (3.5-5.1); Sodium Level 141 mmol/L (136-145)
[2020-09-05] MEDS: Insulin Lispro 100 UNIT/ML INSULN.PEN 10 UNIT SC ×3 (07:28→16:41)
[2020-09-05] MEDS: Insulin Lispro 100 UNIT/ML INSULN.PEN SC ×4 (07:29→22:02)
[2020-09-05 07:46] LABS: Bedside Glucose 216 mg/dL (70-110)
[2020-09-05] MEDS: Fluticasone 0.05% 1 SPRAY NASAL.SRY NASAL (09:19)
[2020-09-05] MEDS: buPROPion (XL) 300 MG TABLET.XL PO (09:19)
[2020-09-05] MEDS: Carvedilol 6.25 MG Tablet PO ×2 (09:19→22:05)
[2020-09-05] MEDS: Enoxaparin 40 MG/0.4 ML Syringe SC (09:19)
[2020-09-05] MEDS: Lisinopril 20 MG Tablet PO (09:19)
[2020-09-05] MEDS: Montelukast 10 MG Tablet PO (09:19)
--- NOTE | 2020-09-05 11:17 | PCM.PN.HOSP ---
Subjective Subjective States that she is breathing better despite still being on 3 L nasal cannula. Of note she is down about 7 pounds. Objective Data Objective Data Vital Signs: Vital Signs Temp Pulse Resp BP Pulse Ox 97.9 F 89 16 134/68 H 99 09/05/20 09:11 09/05/20 09:11 09/05/20 09:11 09/05/20 09:11 09/05/20 09:11 Oxygen Flow Rate (L/min) 3 Oxygen Delivery Method Nasal Cannula Weight: 207 lb 14.334 oz Body Mass Index (BMI) 35.6 Intake & Output: Intake and Output for Last 24 Hours 09/04/20 09/05/20 09/06/20 03:59 03:59 03:59 Intake Total 1020 / 1020 640 / 640 Output Total 450 / 450 Balance 570 / 570 640 / 640 Lab / Micro Data Result Diagrams: 09/03/20 05:40 09/05/20 05:53 Labs: Laboratory Results - last 24 hr 09/04/20 09/04/20 09/04/20 11:45 17:15 21:37 Sodium Potassium Chloride Carbon Dioxide Anion Gap BUN Creatinine Estim Creat Clear Calc Est GFR (MDRD) Af Amer Est GFR (MDRD) Non-Af BUN/Creatinine Ratio Glucose Calcium POC Glucose 392 H 242 H 300 H 09/05/20 09/05/20 05:53 07:27 Sodium 141 Potassium 3.4 L Chloride 101 Carbon Dioxide 36.0 H Anion Gap 4 L BUN 15 Creatinine 0.72 Estim Creat Clear Calc 71.03 Est GFR (MDRD) Af Amer 104 Est GFR (MDRD) Non-Af 86 BUN/Creatinine Ratio 20.7 H Glucose 231 H Calcium 9.0 POC Glucose 216 H Micro: Microbiology 09/02/20 11:56 Mucosa - Nose SARS-CoV-2 Antigen (Rapid) - Final Physical Exam Const alert, oriented x3 and no apparent distress General Appearance: cooperative HEENT normocephalic Eyes PERRL, EOMs intact bilaterally and conjunctivae normal Neck supple and no JVD Resp normal respiratory effort, no retractions, no use of accessory muscles and clear to auscultation bilaterally Auscultation: diminished lung sounds; Negative for crackles, rales, rhonchi or wheezes Cardio regular rate, regular rhythm, S1 normal heart sound, S2 normal heart sound and no murmurs GI soft to palpation, non-tender and non-distended; Negative for hepatosplenomegaly Extremity no clubbing, cyanosis or edema Skin no rashes or lesions noted General Skin Exam: venous stasis Neuro no focal motor deficits and no sensory deficits noted Psych affect normal Appearance: appropriate Assessment & Plan Assessment/Plan (1) Diabetes type 2, controlled: (2) CHF (congestive heart failure): PLAN: 1. Acute on chronic diastolic CHF exacerbation and severe pulmonary hypertension/HTN/HLD/CAD status post stent -We will place her on IV Lasix 3 times daily -Echo with a normal EF and stage II diastolic dysfunction with pulmonary artery pressures of 72 mmHg -We will continue with her home blood pressure medications -She does not appear to be on aspirin or Plavix or a statin -Venous Doppler negative for DVT in her right leg -Consult pulmonology -Obtain an ambulatory pulse ox 2. DM2 -Continue with 30 units units of Lantus twice daily and placed on a sliding scale insulin and make adjustments as necessary -Accu-Cheks AC at bedtime 3. COPD -Does not appear to be in exacerbation, will continue with her home inhalers -Continue with montelukast DVT: Lovenox Charges/Coding Visit Charges Inpatient E&M: 40086 Subs Hosp L2
--- NOTE | 2020-09-05 11:27 | CON.PCM.CC_ITS ---
Assessment & Plan Assessment/Plan (1) Acute exacerbation of CHF (congestive heart failure): (2) Hypoxia: (3) Pulmonary hypertension: PLAN: RECOMMENDATIONS: 1. Continue diuresis as tolerated 2. Consult dietitian for low-salt diet education 3. Optimization as an outpatient with possible need for right heart catheterization 4. Walking oximetry prior to discharge 5. Close follow-up with primary maintenance worker at the [facility] IMPRESSIONS: 1. Acute hypoxic respiratory insufficiency secondary to acute on chronic diastolic CHF with severe pulmonary hypertension/COPD Unclear etiology at this time. Patient has multiple possible etiologies for progression of pulmonary artery pressures. Patient reportedly does have COPD at baseline and is noncompliant with SILVER therapy. Patient has been responding to diuretic therapy while in the hospital, but does not check her saturations at home. Given her indiscretions with salt, clinical suspicion is chronic elevation of pulmonary artery pressure secondary to recurrent hypoxia. Classification of pulmonary hypertension would likely require a right heart catheterization once patient is optimized. Do anticipate with such high pulmonary artery pressures the patient will have a significant increase in oxygen demands with exertion. Patient will need a walking oximetry prior to discharge. If patient is able to ambulate on 6 L or less, outpatient work-up for pulmonary hypertension would be appropriate. 2. Hyperlipidemia/hypertension/CAD/diabetes mellitus type 2/untreated SILVER Complicates care, management, recovery and prognosis. Do not believe krissy ovalle is in acute exacerbation of COPD. Would not recommend steroid therapy as this will complicate diabetic management. Okay to continue with antihypertensives and statins from my perspective. Given development of pulmonary hypertension, reassessment of obstructive sleep apnea would be indicated. At a minimum, patient needs a nocturnal oximetry to be sure that she is not having significant hypoxia as this could exacerbate underlying pulmonary hypertension. HPI Consult Data Date of Consult: 09/05/20 HPI Narrative HPI Narrative: SONA WILSON is a 65 F, with past medical history listed below, who presented to [facility] on 09/02/2020 secondary to progressive shortness of breath and chest pain. Patient reportedly had been declining in status over the last 2 weeks and was starting to use supplemental oxygen throughout the day. Patient states that she wears 3 L with sleep at baseline as a substitution for inability to tolerate noninvasive therapy for SILVER. Patient has had a mild cough that was nonproductive and denied any fevers or chills in the ER. Patient has been vaccinated against Covid, but had noted that she had lower extremity edema. Patient did not feel this was significantly worse compared to previous. Patient has had some orthopnea, but denied any abdominal pain, nausea, vomiting, diarrhea or urinary symptoms. At her PCPs office she was noted to be in the mid 70s on her baseline 3 L nasal cannula. Patient reportedly has been seen at the [facility] in [place] in the past. In the ER, patient was noted to be 99% on her 3 L, afebrile, but hypertensive as high as 148/111. Laboratory work-up was relatively unremarkable showing a white blood cell count of 7.7, hemoglobin of 11.5 and a potassium of 3.2. Creatinine was within normal limits at 0.83 and BNP was noted at 138. Glucose was elevated at 303. Chest x-ray showed diffuse interstitial edema with bilateral pleural effusions. While on the floor, patient was noted to have acute on chronic CHF with underlying COPD. Patient had been placed on Lasix therapy and had an echocardiogram. Echocardiogram showed an EF of 55% with stage II diastolic dysfunction and a pulmonary artery pressure of 76 mmHg. Given significantly elevated pulmonary pressures, a pulmonary consult was obtained for recommendations. Patient feels that she is much improved over the course of her hospitalization. Patient states that she follows a low-salt diet, but currently has salt and cheese crackers on her bedside table. Patient states that she has been diagnosed with obstructive sleep apnea in the past, but was unable to tolerate it. This led to nocturnal oxygen therapy. Patient reportedly had seen [facility] in [place], but has not followed up since moving to [place]. Patient states she is compliant with her Breo therapy and has tolerated this well. Patient states that she has a pulse oximeter, but does not use this routinely. Patient is not actively smoking. Review of systems otherwise negative from a constitutional, HEENT, respiratory, cardiovascular, GI, genitourinary, musculoskeletal, skin, neurologic, psychiatric and hematologic system unless stated above. FOR[facility]LY [facility] Medical History Asthma Atrial fibrillation CHF (congestive heart failure) COPD (chronic obstructive pulmonary disease) Depression Diabetes type 2, controlled Former smoker HTN (hypertension) Hypothyroid Myocardial infarct On home O2 Home Medications albuterol sulfate 1 mg INHALATION Q6H PRN 09/02/20 [History Last Taken 09/02/20] atorvastatin 80 mg PO DAILY 09/02/20 [History Last Taken 09/02/20] bupropion HCl 300 mg PO DAILY 09/02/20 [History Last Taken 09/02/20] cholecalciferol (vitamin D3) [Vitamin D3] 50 mcg PO DAILY 09/02/20 [History Last Taken 09/02/20] fluticasone furoate-vilanterol [Breo Ellipta] 1 inh INHALATION DAILY 09/02/20 [History Last Taken 09/02/20] fluticasone propionate 1 spray INTRANASAL DAILY 09/02/20 [History Last Taken 09/02/20] furosemide 80 mg PO DAILY 09/02/20 [History Last Taken 09/02/20] insulin detemir U-100 [Levemir Flexpen] 35 unit SUBCUT QHS 09/02/20 [History Last Taken 09/01/20] insulin lispro See Protocol SUBCUT TID 09/02/20 [History Last Taken 09/02/20] ipratropium-albuterol [DuoNeb] 3 ml INHALATION Q4H PRN 09/02/20 [History Last Taken 09/02/20] levothyroxine 88 mcg PO DAILY 09/02/20 [History Last Taken 09/02/20] lisinopril 10 mg PO DAILY 09/02/20 [History Last Taken 09/02/20] lorazepam 0.5 mg PO DAILY PRN 09/02/20 [History Last Taken Unknown] lorazepam 1 mg PO QHS 09/02/20 [History Last Taken 09/01/20] metoprolol succinate 50 mg PO DAILY 09/02/20 [History Last Taken 09/02/20] montelukast 10 mg PO DAILY 09/02/20 [History Last Taken 09/02/20] paroxetine HCl 30 mg PO DAILY 09/02/20 [History Last Taken 09/02/20] trazodone 100 mg PO QHS 09/02/20 [History Last Taken 09/01/20] Allergy/AdvReac Type Severity Reaction Status Date / Time Sulfa (Sulfonamide Allergy Anaphylaxis Verified 09/02/20 11:11 Antibiotics) sulfur dioxide Allergy Anaphylaxis Verified 09/02/20 11:11 Family History Grandmother Diabetes Mother Heart disease Surgical History H/O heart artery stent H/O right heart catheterization Tubal ligation status Social History Smoking Status: Former smoker ROS ROS Narrative See HPI Physical Exam Const alert, oriented x3 and no apparent distress General Appearance: cooperative HEENT normocephalic Eyes PERRL, EOMs intact bilaterally and conjunctivae normal Neck supple and no JVD Resp normal respiratory effort, no retractions, no use of accessory muscles and clear to auscultation bilaterally Auscultation: diminished lung sounds; Negative for crackles, rales, rhonchi or wheezes Cardio regular rate, regular rhythm, S1 normal heart sound, S2 normal heart sound and no murmurs GI soft to palpation, non-tender and non-distended; Negative for hepatosplenomegaly Extremity General Extremity: clubbing and edema bilateral lower extremity Details: trace; Negative for cyanosis Skin no rashes or lesions noted General Skin Exam: venous stasis Neuro no focal motor deficits and no sensory deficits noted Psych affect normal Appearance: appropriate Lab / Micro Data Result Diagrams: 09/03/20 05:40 09/05/20 05:53 Labs: Laboratory Results - last 24 hr 09/04/20 09/04/20 09/04/20 11:45 17:15 21:37 Sodium Potassium Chloride Carbon Dioxide Anion Gap BUN Creatinine Estim Creat Clear Calc Est GFR (MDRD) Af Amer Est GFR (MDRD) Non-Af BUN/Creatinine Ratio Glucose Calcium POC Glucose 392 H 242 H 300 H 09/05/20 09/05/20 05:53 07:27 Sodium 141 Potassium 3.4 L Chloride 101 Carbon Dioxide 36.0 H Anion Gap 4 L BUN 15 Creatinine 0.72 Estim Creat Clear Calc 71.03 Est GFR (MDRD) Af Amer 104 Est GFR (MDRD) Non-Af 86 BUN/Creatinine Ratio 20.7 H Glucose 231 H Calcium 9.0 POC Glucose 216 H Charges/Coding Visit Charges Inpatient E&M: 41081 Init Hosp L3
[2020-09-05 12:11] LABS: Bedside Glucose 415 mg/dL (70-110)
[2020-09-05] MEDS: Potassium Chloride Oral Tablet 20 MEQ 60 MEQ PO (12:46)
[2020-09-05 16:50] LABS: Bedside Glucose 402 mg/dL (70-110)
[2020-09-05] MEDS: LORazepam 1 MG Tablet PO (22:04)
[2020-09-05] MEDS: traZODone 100 MG Tablet PO (22:04)
[2020-09-05] MEDS: PARoxetine 10 MG Tablet 30 MG PO (22:05)
[2020-09-05 22:21] LABS: Bedside Glucose 345 mg/dL (70-110)
[2020-09-06] VITALS (7 sets, daily range): BP systolic 135–143; BP diastolic 56–80; PULSE 78–92; RESP 16–18; TEMP 36.2–36.5; O2SAT 95–100
[2020-09-06] MEDS: Levothyroxine 88 MCG Tablet PO (06:37)
[2020-09-06] MEDS: Furosemide 40 MG/4 ML Vial IV (06:37)
[2020-09-06] MEDS: 0.9% Saline Lock 10 ML Syringe IV (06:37)
[2020-09-06] MEDS: Insulin Lispro 100 UNIT/ML INSULN.PEN 10 UNIT SC ×2 (06:46→11:28)
[2020-09-06] MEDS: Insulin Lispro 100 UNIT/ML INSULN.PEN SC ×2 (06:46→11:27)
[2020-09-06 06:50] LABS: Bedside Glucose 293 mg/dL (70-110)
--- NOTE | 2020-09-06 07:04 | PCM.PN.INT ---
Assessment & Plan Assessment/Plan (1) Acute exacerbation of CHF (congestive heart failure): (2) Pulmonary hypertension: PLAN: RECOMMENDATIONS: 1. Continue diuresis as tolerated by hemodynamics and renal function. 2. Secondary pH work-up on outpatient basis. 3. Perform walking oximetry study prior to consideration for discharge home. 4. Follow-up with primary aesthetician at [facility]. IMPRESSIONS: 1. Acute on chronic hypoxemic respiratory failure Secondary to decompensated heart failure with preserved ejection fraction/severe pulmonary hypertension. The patient has responded well clinically to diuresis. Oxygenation status has improved. The patient does report that she has a 3 L/min baseline supplemental oxygen requirement. Continue dietary restrictions including low-sodium diet. Encourage incentive spirometer use and mobilize patient as tolerated. Perform walking oximetry study prior to consideration for discharge home. 2. Hyperlipidemia/hypertension/CAD/diabetes mellitus type 2/untreated SILVER Complicates care, management, recovery and prognosis. Okay to continue with antihypertensives and statins from my perspective. Given development of pulmonary hypertension, reassessment of obstructive sleep apnea would be indicated. At a minimum, patient needs a nocturnal oximetry to be sure that she is not having significant hypoxia as this could exacerbate underlying pulmonary hypertension. This note was generated with [employer] dictation software. It may contain incorrect words, spelling, and punctuation that were not noted in checking the note before signing. Subjective Subjective The patient was seen and examined at the bedside this morning. Events from the last 24 hours have been reviewed. The patient is currently afebrile, hemodynamically stable and maintaining appropriate oxygen saturations on 3 L/min via nasal cannula. The patient is currently documented to be overall net +1.3 L for the hospital admission. Objective Data Objective Data The patient's most recent lab work, culture data and imaging studies have all been personally reviewed. Surface echocardiogram revealed normal LV size with an ejection fraction of 55% and stage II diastolic dysfunction. Pulmonary artery systolic pressure was estimated to be 76 mmHg. Right lower extremity Doppler study was negative for DVT. Rapid coronavirus antigen testing was negative. Vital Signs: Vital Signs Temp Pulse Resp BP Pulse Ox 97.7 F L 91 16 143/80 H 95 09/06/20 03:57 09/06/20 03:57 09/06/20 03:57 09/06/20 03:57 09/06/20 03:57 Oxygen Flow Rate (L/min) [ 95 AMBULATING with Oxygen #1] Oxygen Flow Rate (L/min) [At 99 REST with Oxygen] Oxygen Flow Rate (L/min) 3 Oxygen Delivery Method Nasal Cannula Weight: 207 lb 3.2 oz Body Mass Index (BMI) 35.6 Intake & Output: Intake and Output for Last 24 Hours 09/04/20 09/05/20 09/06/20 23:59 23:59 23:59 Intake Total 420 / 640 1020 / 1220 300 / 300 Output Total 1500 / 1500 Balance 420 / 640 -480 / -280 300 / 300 Lab / Micro Data Attestation: I reviewed the patient's lab results. Result Diagrams: 09/03/20 05:40 09/06/20 06:11 Labs: Laboratory Results - last 24 hr 09/05/20 07:27: POC Glucose 216 H 09/05/20 11:27: POC Glucose 415 H 09/05/20 16:40: POC Glucose 402 H 09/05/20 21:59: POC Glucose 345 H 09/06/20 06:45: POC Glucose 293 H Micro: Microbiology 09/02/20 11:56 Mucosa - Nose SARS-CoV-2 Antigen (Rapid) - Final Physical Exam Const alert and no apparent distress Constitutional Narrative: Sitting in bedside recliner. General Appearance: cooperative HEENT normocephalic, head/scalp atraumatic and moist oral mucous membranes Eyes PERRL and EOMs intact bilaterally Neck supple General: trachea midline Resp Auscultation: diminished lung sounds; Negative for rales, rhonchi or wheezes Cardio regular rate and regular rhythm GI normal to inspection, nondistended, normoactive bowel sounds Extremity General Extremity: edema Skin no rashes or lesions noted Neuro CN's II-XII intact bilaterally and no focal motor deficits Psych cooperative and affect normal Charges/Coding Visit Charges Inpatient E&M: 65332 Subs Hosp L2
[2020-09-06 07:07] LABS: Anion Gap 3 (5-15); BUN 17 mg/dL (7-18); BUN/Creat Ratio 20.9 RATIO (10-20); Calcium,Total 9.1 mg/dL (8.5-10.1); Chloride 101 mmol/L (98-107); Creatinine, Serum 0.81 mg/dL (0.55-1.02); EST Glomerular Filtration Rate 75 mL/min (>60); Est Glom Filt Rate - Afr Amer 91 mL/min (>60); Estimated Creatinine Clearance 63.14 ml/min; Glucose 305 mg/dL (74-106); Potassium 3.9 mmol/L (3.5-5.1); Sodium Level 139 mmol/L (136-145)
[2020-09-06] MEDS: Carvedilol 6.25 MG Tablet PO (09:03)
[2020-09-06] MEDS: Montelukast 10 MG Tablet PO (09:03)
[2020-09-06] MEDS: Enoxaparin 40 MG/0.4 ML Syringe SC (09:03)
[2020-09-06] MEDS: buPROPion (XL) 300 MG TABLET.XL PO (09:03)
[2020-09-06] MEDS: Lisinopril 20 MG Tablet PO (09:04)
[2020-09-06] MEDS: Fluticasone 0.05% 1 SPRAY NASAL.SRY NASAL (09:04)
--- NOTE | 2020-09-06 10:36 | PCM.DC ---
Discharge Instructions Diet Discharge Diet: Low fat / Low cholesterol, 1800 Calorie Control Diet, 2000 mg Sodium Diet and Carb Control Diet Activity Discharge Activity: Return to Normal Activity Dressing / Incision Call your doctor if you observe: Fever of 101 or Higher, Shortness of breath, Dizziness, Swelling in the ankles, Chest pain and Increased palpitations (irregular heartbeat) Follow Up Care Test Results: Test results from this visit will be discussed in further detail at your follow-up appointment, if applicable. Discharge Plan Admission Admit Date/Time: 09/02/20 14:00 Attending Provider: Lalo Cooper Primary Care Provider: Froy Gonzales Consulting Providers: Santos Mcwilliams ; Price Brower ; Linette Gage SOFTWARE REQUIREMENTS ENGINEER Instructions Patient Instructions: Pulmonary Hypertension, Low-Salt Choices, Exercise for a Healthier Heart, Exercise to Manage Your Blood Sugar, Eating Heart-Healthy Foods, Diabetes: Meal Planning, Diabetes Carbs Fats Protein Discharge Orders/Prescriptions Prescriptions: New carvedilol 6.25 mg Tablet 6.25 mg PO BID Qty: 60 RF: 0 lisinopril 20 mg Tablet 20 mg PO DAILY Qty: 30 RF: 0 Continued albuterol sulfate 1.25 mg/3 mL solution for nebulization 1 mg inhalation Q6H PRN (Reason: Shortness Of Breath) RF: 0 levothyroxine 88 mcg Tablet 88 mcg PO DAILY RF: 0 lorazepam 0.5 mg Tablet 0.5 mg PO DAILY PRN (Reason: Anxiety) RF: 0 furosemide 80 mg Tablet 80 mg PO DAILY RF: 0 trazodone 100 mg Tablet 100 mg PO QHS RF: 0 paroxetine HCl 30 mg Tablet 30 mg PO DAILY RF: 0 montelukast 10 mg Tablet 10 mg PO DAILY RF: 0 lorazepam 1 mg Tablet 1 mg PO QHS RF: 0 fluticasone propionate 50 mcg/actuation [place],Suspension 1 spray INTRANASAL DAILY RF: 0 insulin lispro 100 unit/mL Insulin Pen See Protocol unit SUBCUT TID RF: 0 bupropion HCl 300 mg Tablet Extended Release 24 Hr 300 mg PO DAILY RF: 0 insulin detemir U-100 100 unit/mL (3 mL) Insulin Pen 35 unit SUBCUT QHS RF: 0 cholecalciferol (vitamin D3) [Vitamin D3] 50 mcg (2,000 unit) Capsule 50 mcg PO DAILY RF: 0 Breo Ellipta 100-25 mcg/dose Blister With Device 1 inh INHALATION DAILY RF: 0 atorvastatin 80 mg tablet 80 mg PO DAILY RF: 0 ipratropium-albuterol 0.5 mg-3 mg(2.5 mg base)/3 mL Solution For Nebulization 3 ml INHALATION Q4H PRN (Reason: breathing tx) RF: 0 Discontinued metoprolol succinate 50 mg Tablet Extended Release 24 Hr 50 mg PO DAILY RF: 0 lisinopril 10 mg Tablet 10 mg PO DAILY RF: 0 Referrals / Follow Up: Froy Gonzales MD [Primary Care Provider] - In 1 Week Santos Mcwilliams MD [STAFF PHYSICIAN] - Within 2 Weeks (Make appointment as will) Disposition Disposition (needs filled in before D/C Order can be placed): Home, Self Care
--- NOTE | 2020-09-06 11:08 | PHA.DC.MR ---
Pharmacy Service has performed discharge medication reconciliation for this patient. The patient's discharge medication list was reviewed for discrepancies and discrepancies were resolved. Home Medications Breo Ellipta 1 inh INHALATION DAILY 09/02/20 albuterol sulfate 1 mg INHALATION Q6H PRN 09/02/20 atorvastatin 80 mg PO DAILY 09/02/20 bupropion HCl 300 mg PO DAILY 09/02/20 cholecalciferol (vitamin D3) [Vitamin D3] 50 mcg PO DAILY 09/02/20 fluticasone propionate 1 spray INTRANASAL DAILY 09/02/20 furosemide 80 mg PO DAILY 09/02/20 insulin detemir U-100 35 unit SUBCUT QHS 09/02/20 insulin lispro See Protocol SUBCUT TID 09/02/20 ipratropium-albuterol 3 ml INHALATION Q4H PRN 09/02/20 levothyroxine 88 mcg PO DAILY 09/02/20 lorazepam 0.5 mg PO DAILY PRN 09/02/20 lorazepam 1 mg PO QHS 09/02/20 montelukast 10 mg PO DAILY 09/02/20 paroxetine HCl 30 mg PO DAILY 09/02/20 trazodone 100 mg PO QHS 09/02/20 carvedilol 6.25 mg PO BID #60 tab 09/06/20 lisinopril 20 mg PO DAILY #30 tab 09/06/20
--- NOTE | 2020-09-06 11:09 | CASEMGMT ---
Per pt, she is on home oxygen 'here and there' thru out the day and wears it every night thru [employer]. Call to [employer] to clarify pt order and pt's order is for 2-3L prn and 4L at bedtime. Pt aware to wear O2 continuous at home and keep on eye on her pulse ox until she f/u with PCP, voices understanding. Pt voices no further questions/concerns/needs. SStshamir BOURGEOIS CM
--- NOTE | 2020-09-06 11:29 | CASEMGMT ---
Per [facility] palliative screening tool, pt qualifies for palliative c/s and Dr. Cooper is agreeable. Referral faxed to palliative. Aster BOURGEOIS CM
[2020-09-06 11:35] LABS: Bedside Glucose 392 mg/dL (70-110)
--- NOTE | 2020-09-06 11:56 | CASEMGMT ---
SW spoke with patient and she said her ex may be able to transport her back. SW told her to find out and SW will get back to her. GREG [facility] and spoke with Hope letting her know that patient will be returning today. She asked that any new prescriptions be faxed to their pharmacy. The fax number is [phone]. GREG notified physician that SW will need written prescriptions for new scripts. Clare DASILVA
--- NOTE | 2020-09-06 14:41 | NURSING ---
Report called to nurse Campbell at [facility] for pt to return to assisted living.
--- NOTE | 2020-09-06 14:50 | PCM.DC.SUM ---
Providers Date of Admission: 09/02/20 Primary Care Physician: Dr. Froy Gonzales MD Consultations 09/05/20 11:00 Consult: Bike Assembler / Pulmonary Medicine Routine Consulting Provider: Pulmonary Medicine gilmar Merlin Reason for Consult: Pulm HTN EMERGENT Consult: No MD Notified: Yes Date Notified: 09/05/20 Time Notified: 10:30 Method of Notification: Verbal Reason For Visit: CHF Diagnosis Discharge Diagnosis (1) Acute exacerbation of CHF (congestive heart failure): Status: Chronic Code(s): I50.9 - Heart failure, unspecified (2) Pulmonary hypertension: Status: Acute Code(s): I27.20 - Pulmonary hypertension, unspecified Medications at Discharge Home Medications Breo Ellipta 1 inh INHALATION DAILY 09/02/20 albuterol sulfate 1 mg INHALATION Q6H PRN 09/02/20 atorvastatin 80 mg PO DAILY 09/02/20 bupropion HCl 300 mg PO DAILY 09/02/20 cholecalciferol (vitamin D3) [Vitamin D3] 50 mcg PO DAILY 09/02/20 fluticasone propionate 1 spray INTRANASAL DAILY 09/02/20 furosemide 80 mg PO DAILY 09/02/20 insulin detemir U-100 35 unit SUBCUT QHS 09/02/20 insulin lispro See Protocol SUBCUT TID 09/02/20 ipratropium-albuterol 3 ml INHALATION Q4H PRN 09/02/20 levothyroxine 88 mcg PO DAILY 09/02/20 lorazepam 0.5 mg PO DAILY PRN 09/02/20 lorazepam 1 mg PO QHS 09/02/20 montelukast 10 mg PO DAILY 09/02/20 paroxetine HCl 30 mg PO DAILY 09/02/20 trazodone 100 mg PO QHS 09/02/20 carvedilol 6.25 mg PO BID #60 tab 09/06/20 lisinopril 20 mg PO DAILY #30 tab 09/06/20 Hospital Course Operations None Procedures 2-D Echocardiogram Summary of Care Provided Minutes Spent on Discharge: 45 Hospital Course: Per HPI: SONA WILSON, is a 65 F who presents with shortness of breath over the last 2 weeks. She has a history of COPD and heart failure and she has chronic edema in her lower extremities which she has noticed that they have gotten any worse however she has noticed that she has difficulty lying flat because of worsening shortness of breath and thinks it may be the right leg might be a little bit more swollen than the left, she does deny any calf pain. She normally wears 3 L at night to sleep but she has been wearing oxygen throughout the day she says that this happens on occasion so this is not completely atypical. Troponin in the ER was unremarkable chest x-ray demonstrated a right-sided pleural effusion as well as vascular congestion. Hospital Course: 1. Acute on chronic diastolic CHF exacerbation and severe pulmonary hypertension/HTN/HLD/CAD status post stent -We will place her on IV Lasix 3 times daily -Echo with a normal EF and stage II diastolic dysfunction with pulmonary artery pressures of 72 mmHg -We will continue with her home blood pressure medications -She does not appear to be on aspirin or Plavix or a statin -Venous Doppler negative for DVT in her right leg -Consult pulmonology -Ambulatory pulse ox was performed yesterday indicating that she needs 3 L at rest and with ambulation. She has been diuresed a little over 7 pounds since admission and she states that she is breathing much easier. We will continue with her home Lasix dosing, and have her follow-up with pulmonology as an outpatient secondary to her stage II diastolic dysfunction as well as her severe pulmonary hypertension. We will provide her with education on carb meals as well as low-salt diet. The ship propeller finisher will meet with her prior to discharge. I did discuss with her the plan for discharge today and she expressed understanding of the risk benefits of going home and would like to go home today. I did make changes to her home medications, she was increased on last lisinopril from 10 mg daily to 20 mg daily, and her metoprolol was transitioned to Coreg 6.25 mg p.o. twice daily. She will need outpatient evaluation by her PCP for further adjustments as necessary. She did also require quite a bit of insulin here in the hospital, I did not make any changes on discharge at this time however she will need outpatient monitoring once again and adjustments to be made as necessary. 2. DM2 -Continue with 30 units units of Lantus twice daily and placed on a sliding scale insulin and make adjustments as necessary -Accu-Cheks AC at bedtime 3. COPD -Does not appear to be in exacerbation, will continue with her home inhalers -Continue with montelukast Physical Exam Const alert, oriented x3 and no apparent distress General Appearance: cooperative HEENT normocephalic Eyes PERRL, EOMs intact bilaterally and conjunctivae normal Neck supple and no JVD Resp normal respiratory effort, no retractions, no use of accessory muscles and clear to auscultation bilaterally Auscultation: diminished lung sounds; Negative for crackles, rales, rhonchi or wheezes Cardio regular rate, regular rhythm, S1 normal heart sound, S2 normal heart sound and no murmurs GI soft to palpation, non-tender and non-distended; Negative for hepatosplenomegaly Extremity no clubbing, cyanosis or edema Skin no rashes or lesions noted General Skin Exam: venous stasis Neuro no focal motor deficits and no sensory deficits noted Psych affect normal Appearance: appropriate Weight / BMI Weight Weight: 207 lb 3.188 oz Body Mass Index (BMI) 35.6 ABG / Lab / Microbiology Data Result Diagrams: 09/03/20 05:40 09/06/20 06:11 Laboratory: Laboratory Results - last 24 hr 09/05/20 16:40: POC Glucose 402 H 09/05/20 21:59: POC Glucose 345 H 09/06/20 06:11: Sodium 139, Potassium 3.9, Chloride 101, Carbon Dioxide 35.0 H, Anion Gap 3 L, BUN 17, Creatinine 0.81, Estim Creat Clear Calc 63.14, Est GFR (MDRD) Af Amer 91, Est GFR (MDRD) Non-Af 75, BUN/Creatinine Ratio 20.9 H, Glucose 305 H, Calcium 9.1 09/06/20 06:45: POC Glucose 293 H 09/06/20 11:24: POC Glucose 392 H Microbiology: Microbiology 09/02/20 11:56 Mucosa - Nose SARS-CoV-2 Antigen (Rapid) - Final D/C Instructions Discharge Diet: Low fat / Low cholesterol, 1800 Calorie Control Diet, 2000 mg Sodium Diet and Carb Control Diet Call your doctor if you observe: Fever of 101 or Higher, Shortness of breath, Dizziness, Swelling in the ankles, Chest pain and Increased palpitations (irregular heartbeat) Meaningful Use Info Meaningful Use Diagnoses (Choose all that apply): None applicable Discharge Plan Admission Admit Date/Time: 09/02/20 14:00 Attending Provider: Lalo Cooper Primary Care Provider: Froy Gonzales Consulting Providers: Santos Mcwilliams ; Price Brower ; Linette Gage SENIOR PAYROLL MANAGER Instructions Patient Instructions: Low-Salt Choices, Exercise for a Healthier Heart, Exercise to Manage Your Blood Sugar, Pulmonary Hypertension, Diabetes: Meal Planning, Diabetes Carbs Fats Protein, Eating Heart-Healthy Foods Discharge Orders/Prescriptions Prescriptions: New carvedilol 6.25 mg Tablet 6.25 mg PO BID Qty: 60 RF: 0 lisinopril 20 mg Tablet 20 mg PO DAILY Qty: 30 RF: 0 Continued albuterol sulfate 1.25 mg/3 mL solution for nebulization 1 mg inhalation Q6H PRN (Reason: Shortness Of Breath) RF: 0 levothyroxine 88 mcg Tablet 88 mcg PO DAILY RF: 0 lorazepam 0.5 mg Tablet 0.5 mg PO DAILY PRN (Reason: Anxiety) RF: 0 furosemide 80 mg Tablet 80 mg PO DAILY RF: 0 trazodone 100 mg Tablet 100 mg PO QHS RF: 0 paroxetine HCl 30 mg Tablet 30 mg PO DAILY RF: 0 montelukast 10 mg Tablet 10 mg PO DAILY RF: 0 lorazepam 1 mg Tablet 1 mg PO QHS RF: 0 fluticasone propionate 50 mcg/actuation [place],Suspension 1 spray INTRANASAL DAILY RF: 0 insulin lispro 100 unit/mL Insulin Pen See Protocol unit SUBCUT TID RF: 0 bupropion HCl 300 mg Tablet Extended Release 24 Hr 300 mg PO DAILY RF: 0 insulin detemir U-100 100 unit/mL (3 mL) Insulin Pen 35 unit SUBCUT QHS RF: 0 cholecalciferol (vitamin D3) [Vitamin D3] 50 mcg (2,000 unit) Capsule 50 mcg PO DAILY RF: 0 Breo Ellipta 100-25 mcg/dose Blister With Device 1 inh INHALATION DAILY RF: 0 atorvastatin 80 mg tablet 80 mg PO DAILY RF: 0 ipratropium-albuterol 0.5 mg-3 mg(2.5 mg base)/3 mL Solution For Nebulization 3 ml INHALATION Q4H PRN (Reason: breathing tx) RF: 0 Discontinued metoprolol succinate 50 mg Tablet Extended Release 24 Hr 50 mg PO DAILY RF: 0 lisinopril 10 mg Tablet 10 mg PO DAILY RF: 0 Referrals / Follow Up: Santos Mcwilliams MD [STAFF PHYSICIAN] - Within 2 Weeks (Make appointment as will) Froy Gonzales MD [Primary Care Provider] - In 1 Week Disposition Disposition (needs filled in before D/C Order can be placed): Home, Self Care Charges/Coding Visit Charges Inpatient E&M: 38654 Disch Hosp
--- NOTE | 2020-09-06 14:55 | CASEMGMT ---
Patient's prescriptions were actually sent to [facility]. Medications were delivered to patient's room. GREG called [facility] and let them know that patient will be discharged today and that she has her discharge medications with her. GREG did talk with patient and her ex will be transporting her back. Clare DASILVA
--- NOTE | 2020-09-06 15:34 | CON.PCM.PA_ITS ---
Assessment & Plan Assessment/Plan (1) Shortness of breath: (2) Acute on chronic respiratory failure with hypoxemia: (3) Pulmonary hypertension: (4) Acute exacerbation of CHF (congestive heart failure): QUALIFIERS: Heart failure type: diastolic Qualified Code(s): I50.33 - Acute on chronic diastolic (congestive) heart failure (5) Diabetes type 2, controlled: QUALIFIERS: Diabetes mellitus halfway insulin use: with vermin exterminator use Diabetes mellitus complication status: with unspecified complications Qualified Code(s): E11.8 - Type 2 diabetes mellitus with unspecified complications; Z79.4 - senior care (current) use of insulin PLAN: 65-year-old female admitted for CHF exacerbation and acute on chronic hypoxemic respiratory failure, diuresed and now discharged today to home. Seen today for palliative care consultation for symptom management of shortness of breath. 1. Shortness of breath: Multifactorial given respiratory failure, pulmonary hypertension, and CHF. Goal would be to treat underlying cause and avoid opioids, use as a last resort. She would benefit from frequent nursing visits to monitor her symptoms, advised to call palliative early on to avoid hospitalization. Also reiterated dietary restrictions. 2. Acute on chronic hypoxemic respiratory failure/CHF exacerbation: She will follow up with [facility] pulmonary, cardiology. Supplemental oxygen to keep saturations greater than 90%. She will require close follow-up 3. T2 DM/pulmonary hypertension: Complicates overall care, management, recovery and prognosis. Again, will require close outpatient follow-up. Thank you for the opportunity to participate in this patient's care, please do not hesitate to contact [facility] with any further questions or concerns. Palliative direct line is [phone]. We will follow up after discharge and will discuss palliative services further at that time, she is agreeable to liaison visit. We will contact her and arrange. She is asking if her insurance covers it. Advised her billing and coding department always verifies insurance coverage prior to outpatient SEPTIC TANK SERVICER visit. Greater than 50% of F2F visit dedicated to education and counseling of palliative care services, medications, comorbid conditions and potential assistance with management, and plan of care moving forward. Start time: 1534 End time: 1605 HPI Consult Data Date of Consult: 09/06/20 HPI Narrative HPI Narrative: SONA WILSON, is a 65 F who presents to [facility] 09/02/2020 with complaints of increased shortness of breath. Patient has COPD, chronic hypoxemic respiratory failure, and CHF, normally wears 3 L at bedtime however requiring daytime oxygen supplementation. She has chronic edema in her lower extremities, possibly worse so presented to the ED. Chest x-ray showed right-sided pleural effusion as well as vascular congestion. She was admitted to the hospital for further evaluation and management. She was treated for CHF exacerbation, diuresed about 7 pounds. Venous Dopplers negative for DVT to the right leg. Echocardiogram showed normal EF, stage II diastolic dysfunction, and RVSP of 72 mmHg. She does not follow a cardiac diet and uses salt on a daily basis. She follows with pulmonary as an outpatient ([facility]). She had animal researcher consult prior to her discharge to discuss diet. While hospitalized, her medications we re adjusted. Lisinopril was increased to 20 mg daily and metoprolol was changed to Coreg 6.25 mg twice daily. Patient was discharged 09/06/2020. Patient reports no chest pain or current shortness of breath. She does get short of breath with exertion. No N/V/D. No constipation or bloody stools. No abdominal pain. Her legs do ache at times. States her edema is about at baseline today. Denies any wounds. No dizziness or syncopal episodes. No cough or wheezing. No difficulties with urination. Sometimes it is difficult for her to get around but she manages. COUNTS INCLUDE 234 BEDS AT THE [facility] Medical History Asthma Atrial fibrillation CHF (congestive heart failure) COPD (chronic obstructive pulmonary disease) Depression Diabetes type 2, controlled Former smoker HTN (hypertension) Hypothyroid Myocardial infarct On home O2 Home Medications Breo Ellipta 1 inh INHALATION DAILY 09/02/20 [History Last Taken 09/02/20] albuterol sulfate 1 mg INHALATION Q6H PRN 09/02/20 [History Last Taken 09/02/20] atorvastatin 80 mg PO DAILY 09/02/20 [History Last Taken 09/02/20] bupropion HCl 300 mg PO DAILY 09/02/20 [History Last Taken 09/02/20] cholecalciferol (vitamin D3) [Vitamin D3] 50 mcg PO DAILY 09/02/20 [History Last Taken 09/02/20] fluticasone propionate 1 spray INTRANASAL DAILY 09/02/20 [History Last Taken 09/02/20] furosemide 80 mg PO DAILY 09/02/20 [History Last Taken 09/02/20] insulin detemir U-100 35 unit SUBCUT QHS 09/02/20 [History Last Taken 09/01/20] insulin lispro See Protocol SUBCUT TID 09/02/20 [History Last Taken 09/02/20] ipratropium-albuterol 3 ml INHALATION Q4H PRN 09/02/20 [History Last Taken 09/02/20] levothyroxine 88 mcg PO DAILY 09/02/20 [History Last Taken 09/02/20] lorazepam 0.5 mg PO DAILY PRN 09/02/20 [History Last Taken Unknown] lorazepam 1 mg PO QHS 09/02/20 [History Last Taken 09/01/20] montelukast 10 mg PO DAILY 09/02/20 [History Last Taken 09/02/20] paroxetine HCl 30 mg PO DAILY 09/02/20 [History Last Taken 09/02/20] trazodone 100 mg PO QHS 09/02/20 [History Last Taken 09/01/20] carvedilol 6.25 mg PO BID #60 tab 09/06/20 [Rx Last Taken Unknown] lisinopril 20 mg PO DAILY #30 tab 09/06/20 [Rx Last Taken Unknown] Allergy/AdvReac Type Severity Reaction Status Date / Time Sulfa (Sulfonamide Allergy Anaphylaxis Verified 09/02/20 11:11 Antibiotics) sulfur dioxide Allergy Anaphylaxis Verified 09/02/20 11:11 Family History Grandmother Diabetes Mother Heart disease Surgical History H/O heart artery stent H/O right heart catheterization Tubal ligation status Social History Smoking Status: Former smoker ROS ROS Narrative Review of systems otherwise negative from a constitutional, HEENT, respiratory, cardiovascular, GI, genitourinary, musculoskeletal, skin, neurologic, psychiatric and hematologic system unless stated above. Physical Exam Const alert, oriented x3 and no apparent distress General Appearance: cooperative HEENT Head and Scalp: normocephalic and atraumatic Eyes Eyes Narrative: glasses Neck supple General: trachea midline Resp normal respiratory effort Effort and Inspection: able to speak in complete sentences and symmetric chest movement Auscultation: diminished lung sounds; Negative for rales, rhonchi or wheezes Cardio regular rate, regular rhythm, S1 normal heart sound, S2 normal heart sound and no murmurs GI normal to inspection, nondistended, normoactive bowel sounds GI Narrative: obese Extremity no pedal edema General Extremity: edema bilateral lower extremity Details: mild; Negative for cyanosis Skin Skin Narrative: LEs rough, taut skin, bumps. edema General Skin Exam: venous stasis Neuro CN's II-XII intact bilaterally and no focal motor deficits Psych mental status grossly normal Appearance: unkempt Activity / Motor Behavior: appropriate eye contact Memory / Cognition: memory grossly intact
== END 2020-09-06 16:16 | disposition home or self-care (01) | DRG 293 ==
LOC: ED 12:07 → PCU 14:12
PROVIDERS: Admitting Provider Family Medicine; Emergency Provider Emergency Medicine; PCP Family Medicine; Visit Provider Family Medicine
DX: I11.0 Hypertensive heart disease with heart failure (principal); I50.33 Acute on chronic diastolic (congestive) heart failure; R09.02 Hypoxemia; I27.20 Pulmonary hypertension, unspecified; I25.10 Atherosclerotic heart disease of native coronary artery without angina pectoris; J44.9 Chronic obstructive pulmonary disease, unspecified; I48.91 Unspecified atrial fibrillation; E11.9 Type 2 diabetes mellitus without complications; E78.5 Hyperlipidemia, unspecified; E03.9 Hypothyroidism, unspecified; F32.9 Major depressive disorder, single episode, unspecified; G47.33 Obstructive sleep apnea (adult) (pediatric); Z20.822 Contact with and (suspected) exposure to COVID-19; Z99.81 Dependence on supplemental oxygen; Z79.890 Hormone replacement therapy; Z79.4 Long term (current) use of insulin; Z79.899 Other long term (current) drug therapy; I25.2 Old myocardial infarction; Z87.891 Personal history of nicotine dependence; Z95.5 Presence of coronary angioplasty implant and graft; Z91.19 Patient's noncompliance with other medical treatment and regimen
CPT/HCPCS: 36415; 71045; 80048; 80061; 82962; 83735; 83880; 84484; 85025; 87426; 93005; 93306; 93971; 97110; 97162; 97166; 97530; 97803; 99285; A4216; J1940

== ENCOUNTER → 2020-09-21 14:27 | Outpatient (CLI) | payer MEDICARE, MEDICAID, SELFPAY ==
[2020-09-21 11:51] VITALS: BMI 33.6
[2020-09-21 15:22] LABS: Rheumatoid Factor < 10.0 IU/mL (<15)
[2020-09-24 03:07] LABS: Cytoplasmic Ab (C-ANCA) <1:20 titer (Neg:<1:20)
[2020-09-24 10:21] LABS: CCP IgG Antibodies 4 units (0-19); Perinuclear Ab (P-ANCA) <1:20 titer (Neg:<1:20)
[2020-09-24 20:27] LABS: ANTINUCLEAR ANTIBODIES DIRECT Negative
== END ==
PROVIDERS: Referring Provider Nurse Practitioner Acute Care; Visit Provider Nurse Practitioner Acute Care
DX: R06.02 Shortness of breath (principal)
CPT/HCPCS: 36415; 86038; 86200; 86225; 86235; 86256; 86431

== ENCOUNTER 2020-10-07 12:18 | Emergency (ER) | payer MEDICARE, MEDICAID, SELFPAY ==
[2020-09-21 11:51] VITALS: BMI 33.6
[2020-10-07 12:18] VITALS: BP 142/82; PULSE 78; RESP 18; TEMP 37.3; O2SAT 95; BMI 34.7
--- NOTE | 2020-10-07 12:47 | CT_ITS ---
EXAM: CT CERVICAL SPINE WITHOUT INTRAVENOUS CONTRAST CLINICAL INDICATION: Injury/Pain TECHNIQUE: Helically acquired images were obtained of the cervical spine without intravenous contrast. 2D reformatted images were reviewed. This CT exam was performed using one or more of the following dose reduction techniques: automated exposure control, adjustment of the mA and/or kV according to patient size, and/or use of iterative reconstruction technique. This report was created using [employer] report generation technology. COMPARISON: None. FINDINGS: LIMITATIONS: Limited by motion artifact in the cervical-thoracic junction causing artifact simulating fracture. VERTEBRAE: Anterior spondylosis at multiple cervical levels. No demonstrated fracture. DISCS/SPINAL CANAL/NEURAL FORAMINA: Disc space narrowing at multiple levels. No critical canal stenosis. SOFT TISSUES: Unremarkable. No prevertebral soft tissue swelling. VASCULATURE: Atherosclerosis of the bilateral carotid and vertebral arteries. LYMPH NODES: Unremarkable. No cervical adenopathy. LUNG APICES: Unremarkable as visualized. Clear. OTHER FINDINGS: Left more than right facet arthropathy. CT/Spine Cervical without Contras IMPRESSION: No acute findings in the cervical spine. Electronically Signed: Sameer Rojas MD ([place]) at 13:25 EDT , Service support ,
--- NOTE | 2020-10-07 12:47 | CT_ITS ---
STUDY: CT BRAIN WITHOUT CONTRAST REASON FOR EXAM: Female, 65 years old. Injury/Pain RADIATION DOSAGE (If Supplied By Facility): CTDIvol = ( 44.99 ) mGy, DLP = ( 812.98 ) mGycm TECHNIQUE: Transaxial CT imaging of the brain was performed without administration of intravenous contrast material. Individualized dose optimization techniques were used for this CT. COMPARISON: No relevant priors. FINDINGS: Normal soft tissue structures. Normal calvarium. Normal size ventricles and extra-axial spaces for the patient''s age with normal cavum variation. Normal white matter tracts of the cerebral hemispheres. Normal basal ganglia and thalami. Normal brainstem. Normal cerebellum. There is no intracranial hemorrhage. There are no findings of an acute ischemic infarction. Normal visualized paranasal sinuses. CT/Brain/Head without Contrast IMPRESSION: 1. No acute intracranial hemorrhage or mass effect. Electronically Signed: Sameer Rojas MD ([place]) at 13:24 EDT , Service support ,
--- NOTE | 2020-10-07 12:55 | ED.VIS.FALL ---
HPI HPI - Fall History of Present Illness Chief Complaint: Fall Informant: patient Occured/Mechanism Occurred: Today Mechanism/Context: Yes same level fall and Yes trip Usually ambulates: Walker Pain/Injury Pain Location: head, neck and back Quality of Pain: Aching Worsened by: Nothing Relieved by: Nothing Associated Symptoms Associated Symptoms: Negative for Parasthesias, Weakness, Loss of function and Loss of consciousness Narrative Narrative: Patient presents after a fall that occurred today. Patient states she was stepping up onto a scale when she tripped over her walker. Patient states she hit her head and neck. Patient denies any loss of consciousness. Patient denies any paresthesias or weakness. Patient states her pain is aching. Patient states it is localized to the head neck and upper back. Patient also hit her right knee. Patient denies any saddle anesthesia. [facility] Medical History Asthma Atrial fibrillation CHF (congestive heart failure) COPD (chronic obstructive pulmonary disease) Depression Diabetes type 2, controlled Former smoker HTN (hypertension) Hypothyroid Myocardial infarct On home O2 Home Medications Breo Ellipta 1 inh INHALATION DAILY 09/02/20 [History Last Taken 09/02/20] albuterol sulfate 1 mg INHALATION Q6H PRN 09/02/20 [History Last Taken 09/02/20] atorvastatin 80 mg PO DAILY 09/02/20 [History Last Taken 09/02/20] bupropion HCl 300 mg PO DAILY 09/02/20 [History Last Taken 09/02/20] cholecalciferol (vitamin D3) [Vitamin D3] 50 mcg PO DAILY 09/02/20 [History Last Taken 09/02/20] fluticasone propionate 1 spray INTRANASAL DAILY 09/02/20 [History Last Taken 09/02/20] furosemide 80 mg PO DAILY 09/02/20 [History Last Taken 09/02/20] insulin detemir U-100 35 unit SUBCUT QHS 09/02/20 [History Last Taken 09/01/20] insulin lispro See Protocol SUBCUT TID 09/02/20 [History Last Taken 09/02/20] ipratropium-albuterol 3 ml INHALATION Q4H PRN 09/02/20 [History Last Taken 09/02/20] levothyroxine 88 mcg PO DAILY 09/02/20 [History Last Taken 09/02/20] lorazepam 0.5 mg PO DAILY PRN 09/02/20 [History Last Taken Unknown] lorazepam 1 mg PO QHS 09/02/20 [History Last Taken 09/01/20] montelukast 10 mg PO DAILY 09/02/20 [History Last Taken 09/02/20] paroxetine HCl 30 mg PO DAILY 09/02/20 [History Last Taken 09/02/20] trazodone 100 mg PO QHS 09/02/20 [History Last Taken 09/01/20] carvedilol 6.25 mg PO BID #60 tab 09/06/20 [Rx Last Taken Unknown] lisinopril 20 mg PO DAILY #30 tab 09/06/20 [Rx Last Taken Unknown] metoprolol succinate 50 mg tablet,extended release 24 hr 50 mg PO DAILY 09/21/20 [History Last Taken Unknown] Allergy/AdvReac Type Severity Reaction Status Date / Time Sulfa (Sulfonamide Allergy Anaphylaxis Verified 10/07/20 12:22 Antibiotics) sulfur dioxide Allergy Anaphylaxis Verified 10/07/20 12:22 Family History Grandmother Diabetes Mother Heart disease Surgical History H/O heart artery stent H/O right heart catheterization Tubal ligation status Social History Smoking Status: Former smoker ROS ROS ED Constitutional Constitutional ED: Denies chills or fever(s) Eyes Eyes: Denies blurry vision or change in vision ENT ENT ED: Denies rhinorrhea or sore throat Cardiovascular Cardiovascular: Denies chest pain or palpitations Respiratory/Chest Respiratory/Chest: Denies cough or dyspnea Gastrointestinal Gastrointestinal: Denies nausea or vomiting Genitourinary Genitourinary ED: Denies dysuria or hematuria Musculoskeletal Musculoskeletal: Reports back pain and neck pain Integumentary Denies abscess or rash Neurologic Neurologic: Reports headache(s); Denies weakness Allergic/Immunologic Allergic/Immunologic ED: Denies mouth swelling or urticaria EXAM Physical Exam Const Vital Signs: 10/07/20 12:18 10/07/20 13:04 Temperature 99.1 F Temperature Source Oral Pulse Rate 78 Respiratory Rate 18 Respiratory Effort Normal Non-Labored Respiratory Depth Normal Respiratory Pattern Normal Blood Pressure 142/82 H Blood Pressure Mean 102 Pulse Ox 95 3 Oxygen Delivery Method Nasal Cannula Nasal Cannula Oxygen Flow Rate (L/min) 3 Positive well nourished and well developed General Appearance ED: well developed HEENT Reports moist mucous membranes HEENT Narrative: There is tenderness over the occiput. There is no bony crepitance or step-off. There is no edema or ecchymosis. There is no hematoma noted. tenderness Neck supple and no JVD Neck Narrative: There is tenderness over the left cervical paraspinal muscles. There is some mild midline tenderness. There is no bony crepitance or step-off. Range of motion was slightly limited in all motions secondary to pain. Resp normal respiratory effort and clear to auscultation bilaterally Cardio regular rate, regular rhythm and no murmurs GI normal to inspection, nondistended, normoactive bowel sounds and non-tender Palpation: soft Back/Spine Back/Spine Narrative: There is mild tenderness over the upper thoracic paraspinal muscles and trapezius muscles. There is no midline tenderness. There is no edema or ecchymosis. There is no bony crepitance or step-off. There is good range of motion. Extremity normal to inspection General Extremety ED: Negative for edema or tenderness General Extremity: Negative for edema Right Lower Extremity: knee joint inspection (There is some mild edema and ecchymosis over the anterior aspect of the right knee.), palpation (There is minimal tenderness over the anterior aspect of the right knee.) and ROM (There is full range of motion.) Neuro oriented x3, CN's II-XII intact bilaterally and no sensory deficits noted Sensorium / Orientation: alert Motor Exam: strength 5/5 throughout Psych mental status grossly normal Skin no rashes or lesions noted MDM MDM MDM Narrative Medical decision making narrative: CT scan of the cervical spine was obtained. There is no acute fracture or spondylolisthesis. This was interpreted by the radiologist and reviewed by myself. CT scan of the brain was obtained. There is no acute intracranial abnormality. This was also interpreted by the radiologist and reviewed by myself. Patient was advised of her findings. Patient was instructed to take Tylenol as needed for pain. Patient was instructed return if worse in any way. Patient understood and was agreeable with the plan. All questions were answered. Radiography Diagnostic Testing: Radiology Impression Brain CT 10/07/20 12:47 IMPRESSION: 1. No acute intracranial hemorrhage or mass effect. Electronically Signed: Sameer Rojas MD ([place]) at 13:24 EDT , Service support , Cervical Spine CT 10/07/20 12:47 IMPRESSION: No acute findings in the cervical spine. Electronically Signed: Sameer Rojas MD ([place]) at 13:25 EDT , Service support , Discharge Plan Triage Chief Complaint: Fall ED Provider: Izaiah Hardin Dx/Rx/DC Orders Clinical Impression: Closed head injury, Acute cervical myofascial strain Instructions: ED Head Injury (Adult), ED Neck Sprain or Strain Prescriptions: No Action metoprolol succinate 50 mg tablet extended release 24 hr 50 mg PO DAILY RF: 0 albuterol sulfate 1.25 mg/3 mL solution for nebulization 1 mg inhalation Q6H PRN (Reason: Shortness Of Breath) RF: 0 levothyroxine 88 mcg Tablet 88 mcg PO DAILY RF: 0 lorazepam 0.5 mg Tablet 0.5 mg PO DAILY PRN (Reason: Anxiety) RF: 0 furosemide 80 mg Tablet 80 mg PO DAILY RF: 0 trazodone 100 mg Tablet 100 mg PO QHS RF: 0 paroxetine HCl 30 mg Tablet 30 mg PO DAILY RF: 0 montelukast 10 mg Tablet 10 mg PO DAILY RF: 0 lorazepam 1 mg Tablet 1 mg PO QHS RF: 0 fluticasone propionate 50 mcg/actuation [place],Suspension 1 spray INTRANASAL DAILY RF: 0 insulin lispro 100 unit/mL Insulin Pen See Protocol unit SUBCUT TID RF: 0 bupropion HCl 300 mg Tablet Extended Release 24 Hr 300 mg PO DAILY RF: 0 insulin detemir U-100 100 unit/mL (3 mL) Insulin Pen 35 unit SUBCUT QHS RF: 0 cholecalciferol (vitamin D3) [Vitamin D3] 50 mcg (2,000 unit) Capsule 50 mcg PO DAILY RF: 0 Breo Ellipta 100-25 mcg/dose Blister With Device 1 inh INHALATION DAILY RF: 0 atorvastatin 80 mg tablet 80 mg PO DAILY RF: 0 ipratropium-albuterol 0.5 mg-3 mg(2.5 mg base)/3 mL Solution For Nebulization 3 ml INHALATION Q4H PRN (Reason: breathing tx) RF: 0 carvedilol 6.25 mg Tablet 6.25 mg PO BID Qty: 60 RF: 0 lisinopril 20 mg Tablet 20 mg PO DAILY Qty: 30 RF: 0 Primary Care Provider: Froy Gonzales Referrals: Froy Gonzales MD [Primary Care Provider] - 5-7 Days Disposition Disposition: Home, Self Care
--- NOTE | 2020-10-07 14:12 | NURSING ---
CALLED [facility], ETA IS 30 MIN
[2020-10-07 14:13] VITALS: PULSE 78; RESP 16; O2SAT 94
--- NOTE | 2020-10-07 14:50 | ED.RN ---
spoke with [facility] to let them know of pts return
== END 2020-10-07 14:46 | disposition home or self-care (01) ==
PROVIDERS: Emergency Provider Emergency Medicine; PCP Family Medicine
DX: S09.90XA Unspecified injury of head, initial encounter (principal); S16.1XXA Strain of muscle, fascia and tendon at neck level, initial encounter; S80.01XA Contusion of right knee, initial encounter; W01.0XXA Fall on same level from slipping, tripping and stumbling without subsequent striking against object, initial encounter; Y93.9 Activity, unspecified; Y92.9 Unspecified place or not applicable; Y99.9 Unspecified external cause status; I11.0 Hypertensive heart disease with heart failure; I50.9 Heart failure, unspecified; I48.91 Unspecified atrial fibrillation; J44.9 Chronic obstructive pulmonary disease, unspecified; E11.9 Type 2 diabetes mellitus without complications; E03.9 Hypothyroidism, unspecified; F32.9 Major depressive disorder, single episode, unspecified; Z99.81 Dependence on supplemental oxygen; Z79.4 Long term (current) use of insulin; Z79.51 Long term (current) use of inhaled steroids; Z79.899 Other long term (current) drug therapy; I25.2 Old myocardial infarction; Z87.891 Personal history of nicotine dependence; Z95.5 Presence of coronary angioplasty implant and graft
CPT/HCPCS: 70450; 72125; 99284

== ENCOUNTER 2021-04-06 16:14 | Outpatient (CLI) | payer MEDICARE, MEDICAID, SELFPAY ==
[2021-04-06 17:36] LABS: Anion Gap 4 (5-15); BUN 41 mg/dL (7-18); BUN/Creat Ratio 34.5 RATIO (10-20); Calcium,Total 9.3 mg/dL (8.5-10.1); Chloride 103 mmol/L (98-107); Creatinine, Serum 1.19 mg/dL (0.55-1.02); EST Glomerular Filtration Rate 48 mL/min (>60); Est Glom Filt Rate - Afr Amer 59 mL/min (>60); Glucose 236 mg/dL (74-106); Potassium 4.5 mmol/L (3.5-5.1); Sodium Level 137 mmol/L (136-145); Thyroid Stim Hormone (TSH) 2.79 uIU/mL (0.358-3.74)
== END 2021-04-06 23:59 | disposition home or self-care (01) ==
LOC: LAB 16:15
PROVIDERS: PCP Family Medicine; Referring Provider Internal Medicine Cardiovascular Disease; Visit Provider Internal Medicine Cardiovascular Disease
DX: I25.10 Atherosclerotic heart disease of native coronary artery without angina pectoris (principal); I50.32 Chronic diastolic (congestive) heart failure; I11.0 Hypertensive heart disease with heart failure
CPT/HCPCS: 36415; 80048; 83735; 84443

== ENCOUNTER 2021-04-21 12:46 | Outpatient (CLI) | payer MEDICARE, MEDICAID, SELFPAY ==
--- NOTE | 2021-04-21 12:53 | ECHOD_ITS ---
Reason For Study: SOB Procedure This was a 2D Doppler, Color Flow transthoracic echocardiogram. The study was technically difficult. Exam performed in department. Left Ventricle Normal LV size. Mild concentric left ventricular hypertrophy. Left ventricular systolic function is normal. The estimated ejection fraction is 60 %. Stage 3 diastolic dysfunction. No regional wall motion abnormalities noted. Right Ventricle Normal RV size. Normal systolic function. Atria The left atrium is mildly enlarged. Normal right atrium. Mitral Valve Mild focal mitral valve calcification of the anterior leaflet. Moderate (2+) mitral valve insufficiency. Tricuspid Valve Normal tricuspid valve. Moderate (2+) tricuspid valve insufficiency. Pulmonary artery systolic pressure is 66 mmHg. Aortic Valve Normal aortic valve. Trisinus/trileaflet aortic valve. Trivial aortic valve insufficiency. Pulmonic Valve Normal pulmonic valve. Mild (1+) pulmonic valve insufficiency. Great Vessels Normal aortic root. The pulmonary artery is normal size. Normal inferior vena cava. Pericardium/Pleural No pericardial effusion. MMode/2D Measurements & Calculations LVIDd: 4.5 cm IVSd: 1.2 cm Ao root diam: 3.0 cm LVIDs: 2.7 cm LVPWd: 1.2 cm RVDd: 2.7 cm FS: 40.7 % LAV(MOD-bp): 68.2 ml LVAd ap4: 28.2 cm2 SV(MOD-sp4): 63.2 ml LAV(MOD-bp) Indexed: 33.0 ml/m2 LVLd ap4: 8.0 cm LAV(MOD-sp2): 70.2 ml EDV(MOD-sp4): 84.9 ml LAV(MOD-sp4): 66.9 ml EDV(sp4-el): 84.2 ml LVAs ap4: 13.0 cm2 LVLs ap4: 6.8 cm ESV(MOD-sp4): 21.7 ml ESV(sp4-el): 21.1 ml EF(MOD-sp4): 74.5 % EF(sp4-el): 75.0 % SV(sp4-el): 63.1 ml LA A4 area: 22.8 cm2 LA dimension(2D): 4.4 cm RA A4 area: 14.9 cm2 Doppler Measurements & Calculations MV E max timothy: 183.9 cm/sec Lat Peak E' Timothy: 6.5 cm/sec Med Peak E' Itmothy: 7.7 cm/sec MV A max timothy: 61.6 cm/sec E/E' lat: 28.2 E/E' med: 23.9 MV E/A: 3.0 MV V2 max: 185.9 cm/sec MV P1/2t max timothy: 182.5 cm/sec Ao V2 max: 144.2 cm/sec MV max P.8 mmHg MV P1/2t: 76.5 msec Ao max P.3 mmHg MV V2 mean: 99.6 cm/sec MV mean P.9 mmHg MV dec slope: 698.4 cm/sec2 MV V2 VTI: 35.8 cm MVA(P1/2t): 2.9 cm2 LV V1 max: 109.8 cm/sec PA V2 max: 116.0 cm/sec TR max timothy: 390.5 cm/sec LV V1 max P.8 mmHg TR max P.0 mmHg ECHO/Echo Complete Interpretation Summary Normal LV size. Mild concentric left ventricular hypertrophy. Left ventricular systolic function is normal. The estimated ejection fraction is 60 %. Moderate (2+) mitral valve insufficiency. Pulmonary artery systolic pressure is 66 mmHg. Compared to the previous the pulmonary pressures mildly improved. Stage 3 diastolic dysfunction. Ordering Physician: Juancho Tamayo Referring Physician: Froy Gonzales Performed By: Bianka Riley RDCS
== END 2021-04-21 23:59 | disposition home or self-care (01) ==
LOC: CVS 12:51
PROVIDERS: PCP Family Medicine; Visit Provider Internal Medicine Cardiovascular Disease
DX: I27.21 Secondary pulmonary arterial hypertension (principal)
CPT/HCPCS: 93306

== ENCOUNTER 2021-04-27 12:29 | Outpatient (CLI) | payer MEDICARE, MEDICAID, SELFPAY ==
[2021-04-27 13:47] VITALS: PULSE 103; PULSE 79; PULSE 86; PULSE 89; PULSE 90; PULSE 91; PULSE 97; PULSE 99; O2SAT 89; O2SAT 91; O2SAT 93; O2SAT 94; O2SAT 95; O2SAT 96
--- NOTE | 2021-04-27 13:54 | CPS ---
SHE ARRIVED WITH 3LPM O2 ON SPO2 WAS 95% REMOVED AND IT STAYED 95% SHE NEEDED TO USE HER WHEELCHAIR TO WALK. STARTED THE WALK WITHOUT O2 ON BUT AT 2 1/2 MINUTES SHE REFUSED TO WALK ANY MORE DUE TO ARMS FEELING HEAVY AND BOTH LEGS PAINFUL AND HEAVY. ASKED SEVERAL TIMES IF SHE WANTED TO CONTINUE TO WALK MORE SHE SAID NO. THE REASON IS DUE TO THE ABOVE REASONS.
--- NOTE | 2021-04-27 15:36 | PCM.PSN.6M ---
PSN 6 Minute Walk Test 6 Minute Walk Test 6 Minute Walk Test: 6 Minute Walk Test PSN:6-Minute Walk Test Start: 04/27/21 13:47 Freq: Status: Active Protocol: [id number] Document 04/27/21 13:47 FR (Rec: 04/27/21 13:59 FR [id number]) 6 Minute Walk Test Date Performed 04/27/21 Time Performed 12:30 Height 5 ft 5 in Weight: 102.512 kg Weight in Pounds 226.[address]: Santos Mcwilliams Assistive device used: Walker Pre-test Oxygen Delivery Method Room Air Pulse Ox (%) 95 Pulse Rate (60-100 beats/min) 79 Dyspnea Ingrid Scale (0-10) 0 Exertion Ingrid Scale (6-20) 8 1st minute Oxygen Delivery Method Room Air Pulse Ox (%) 93 Pulse Rate (60-100 beats/min) 91 2nd minute Oxygen Delivery Method Room Air Pulse Ox (%) 91 Pulse Rate (60-100 beats/min) 99 3rd minute Oxygen Delivery Method Room Air Pulse Ox (%) 89 Pulse Rate (60-100 beats/min) 103 H Dyspnea Ingrid Scale (0-10) 7 Exertion Ingrid Scale (6-20) 10 Number of Rests Taken 1 4th minute Oxygen Delivery Method Room Air Pulse Ox (%) 91 Pulse Rate (60-100 beats/min) 97 5th minute Oxygen Delivery Method Room Air Pulse Ox (%) 94 Pulse Rate (60-100 beats/min) 90 6th minute Oxygen Delivery Method Room Air Pulse Ox (%) 96 Pulse Rate (60-100 beats/min) 89 Dyspnea Ingrid Scale (0-10) 7 Exertion Ingrid Scale (6-20) 10 Post-test Oxygen Delivery Method Room Air Pulse Ox (%) 96 Pulse Rate (60-100 beats/min) 86 Full Laps Walked 4 Partial Lap, Number of Tiles Walked 0 Total Distance Walked (ft) 236 04/27/21 13:54 Cardiopulmonary Services by Nasra Fallon SHE ARRIVED WITH 3LPM O2 ON SPO2 WAS 95% REMOVED AND IT STAYED 95% SHE NEEDED TO USE HER WHEELCHAIR TO WALK. STARTED THE WALK WITHOUT O2 ON BUT AT 2 1/2 MINUTES SHE REFUSED TO WALK ANY MORE DUE TO ARMS FEELING HEAVY AND BOTH LEGS PAINFUL AND HEAVY. ASKED SEVERAL TIMES IF SHE WANTED TO CONTINUE TO WALK MORE SHE SAID NO. THE REASON IS DUE TO THE ABOVE REASONS. Initialized on 04/27/21 13:54 - END OF NOTE Interpretation Interpretation: The patient was noted to be 95% on room air at rest. The patient did desaturate as low as 89%, but stopped ambulating at 2-1/2 minutes secondary to concerns with arms and leg feeling heavy. No supplemental oxygen was used. In total, the patient traveled only 236 feet over the course of 6 minutes on room air with the assistance of a walker and one extended break. These findings are consistent with a respiratory limitation exercise tolerance. Recommendations Recommendations: The patient technically does not qualify for supplemental oxygen with the study, but caution in removing oxygen as patient was at 89% when she stopped ambulating at 2-1/2 minutes and traveled only a minimal distance.
== END 2021-04-27 23:59 | disposition home or self-care (01) ==
PROVIDERS: Referring Provider Internal Medicine Critical Care Medicine; Visit Provider Internal Medicine Critical Care Medicine
DX: I27.21 Secondary pulmonary arterial hypertension (principal)
CPT/HCPCS: 94618

== ENCOUNTER 2021-08-25 07:55 | Outpatient (RCR) | payer MEDICARE, MEDICAID, SELFPAY ==
[2021-08-25 08:22] VITALS: BP 131/49; PULSE 65; TEMP 36.3
--- NOTE | 2021-08-25 12:36 | PCM.WC.HP ---
History of Present Illness Date of Service: 08/25/21 Chief Complaint: Left heel wound, left hallux wound History of Wound: Patient is a 66-year-old diabetic female who presents with decubitus ulceration to her left heel and a pressure wound to her dorsal left hallux secondary to rubbing in shoe gear. She states that the hallux wound started as a blood blister a few weeks ago but broke down and became red. Her family physician started her on Keflex and she finishes her oral medication tomorrow 08/26/2021. She also states that the heel wound started shortly after her hallux wound. She states both wounds are very painful. Due to her new onset of diabetic peripheral polyneuropathy she has been started on Neurontin by her PCP. She believes this is also helping. [facility] Medical History (Updated 08/25/21 @ 12:[address] Noah No, DPMiryam) Acute cervical myofascial strain Acute on chronic respiratory failure with hypoxemia Asthma Atherosclerotic heart disease of [place] coronary artery without angina pectoris Chronic heart failure with preserved ejection fraction (HFpEF) Closed head injury COPD (chronic obstructive pulmonary disease) Depression Diabetes type 2, controlled Essential hypertension Former smoker History of non-ST elevation myocardial infarction (NSTEMI) (02/24/17) Hyperlipidemia Hypothyroid Non-rheumatic tricuspid valve insufficiency Nonrheumatic mitral (valve) insufficiency Obesity Obstructive sleep apnea On home O2 Secondary pulmonary arterial hypertension Type 2 diabetes mellitus Home Medications albuterol sulfate 1.25 mg/3 mL solution for nebulization 1 mg inhalation Q6H PRN Shortness Of Breath 09/02/20 [History Last Taken 09/02/20] bupropion HCl 300 mg 24 hr tablet, extended release 300 mg PO DAILY Check with primary doctor 09/02/20 [History Last Taken 09/02/20] cholecalciferol (vitamin D3) 50 mcg (2,000 unit) capsule (Vitamin D3) 50 mcg PO DAILY supplement 09/02/20 [History Last Taken 09/02/20] fluticasone furoate 100 mcg-vilanterol 25 mcg/dose inhalation powder (Breo Ellipta) 1 inh inhalation DAILY breathing 09/02/20 [History Last Taken 09/02/20] fluticasone propionate 50 mcg/actuation nasal spray,suspension 1 spray intranasal DAILY Check with primary doctor 09/02/20 [History Last Taken 09/02/20] furosemide 80 mg tablet 80 mg PO DAILY water pill 09/02/20 [History Last Taken 09/02/20] insulin detemir U-100 100 unit/mL (3 mL) subcutaneous pen 35 unit subcut QHS blood sugar 09/02/20 [History Last Taken 09/01/20] insulin lispro 100 unit/mL subcutaneous pen See Protocol subcut TID blood sugar 09/02/20 [History Last Taken 09/02/20] ipratropium 0.5 mg-albuterol 3 mg (2.5 mg base)/3 mL nebulization soln 3 ml inhalation Q4H PRN breathing tx 09/02/20 [History Last Taken 09/02/20] levothyroxine 88 mcg tablet 88 mcg PO DAILY thyroid 09/02/20 [History Last Taken 09/02/20] lorazepam 1 mg tablet 1 mg PO QHS anxiety 09/02/20 [History Last Taken 09/01/20] montelukast 10 mg tablet 10 mg PO DAILY Check with primary doctor 09/02/20 [History Last Taken 09/02/20] paroxetine HCl 30 mg tablet 30 mg PO DAILY mental health 09/02/20 [History Last Taken 09/02/20] trazodone 100 mg tablet 100 mg PO QHS sleep 09/02/20 [History Last Taken 09/01/20] lisinopril 20 mg tablet 20 mg PO DAILY #30 tabs 09/06/20 [Rx Last Taken Unknown] carvedilol 6.25 mg tablet 6.25 mg PO BID #60 tabs 01/06/21 [Rx Last Taken Unknown] atorvastatin 80 mg tablet 80 mg PO QHS #30 tabs 04/08/21 [Rx Last Taken Unknown] aspirin 81 mg tablet,delayed release (Adult Aspirin Regimen) 81 mg PO DAILY 05/17/21 [History Last Taken Unknown] bromfenac 0.075 % eye drops (BromSite) 1 drp ophthalmic (eye) DAILY 05/17/21 [History Last Taken Unknown] amlodipine 5 mg tablet 5 mg PO DAILY #90 tabs 06/07/21 [Rx Last Taken Unknown] amlodipine 10 mg tablet 10 mg PO DAILY 08/25/21 [History Last Taken Unknown] benzonatate 100 mg capsule 100 mg PO BID PRN Pain, Mild 08/25/21 [History Last Taken Unknown] dextromethorphan-guaifenesin 20 mg-400 mg tablet (Mucus Relief DM) 1 tab PO Q4H PRN Nasal Congestion 08/25/21 [History Last Taken Unknown] gabapentin 100 mg capsule (Neurontin) 100 mg PO TID 08/25/21 [History Last Taken Unknown] loratadine 10 mg capsule 10 mg PO DAILY 08/25/21 [History Last Taken Unknown] ofloxacin 0.3 % eye drops 0 drp EACH EYE .COMPLEX 08/25/21 [History Last Taken Unknown] Allergy/AdvReac Type Severity Reaction Status Date / Time Sulfa (Sulfonamide Allergy Anaphylaxis Verified 06/03/21 15:16 Antibiotics) sulfur dioxide Allergy Anaphylaxis Verified 06/03/21 15:16 Family History Grandmother Diabetes Mother Heart disease Surgical History H/O right heart catheterization History of coronary artery stent placement (02/24/17) Tubal ligation status Social History Smoking Status: Former smoker ROS Constitutional Constitutional: Denies change in weight, chills, fatigue or fever(s) Eyes Eyes: Denies change in vision, double vision or dry eyes ENT HEENT: Denies nasal congestion, nasal discharge, sinus pain or sore throat Cardiovascular Cardiovascular: Denies chest pain, claudication or palpitations Respiratory/Chest Respiratory/Chest: Denies cough, shortness of breath at rest or wheezing Gastrointestinal Gastrointestinal: Denies abdominal pain, constipation, diarrhea, nausea or vomiting Genitourinary Genitourinary: Denies dysuria, hematuria, urinary frequency, urinary hesitancy or urinary incontinence Musculoskeletal Musculoskeletal: Denies joint pain, joint stiffness or joint swelling Integumentary Integumentary: Reports wounds; Denies jaundice, lesions or rash Neurologic Neurologic: Reports burning sensations and tingling; Denies numbness or seizures Psychiatric Psychiatric: Reports anxiety and depression Endocrine Endocrinology: Denies polydipsia or polyuria Hematologic/Lymphatic Hematologic/Lymphatic: Denies easy bleeding or easy bruising Vital Signs Vital Signs Vital Signs: 08/25/21 08:22 Temperature 97.4 F L Temperature Source Temporal Pulse Rate 65 Blood Pressure 131/49 H Blood Pressure Mean 76 Blood Pressure Source Monitor Blood Pressure Position Semi-Fowlers Blood Pressure Location Right Arm Physical Exam Const alert, oriented x3 and no apparent distress General Appearance: cooperative and comfortable HEENT normocephalic Eyes General Eye: normal appearance of both eyes Neck General: normal visual inspection Lymph Lymphatic: no lymphadenopathy noted and no lymphedema noted Resp normal respiratory effort Cardio regular rate and regular rhythm Back/Spine no CVA tenderness Extremity no calf tenderness and no pedal edema Extremity Narrative: Nonpalpable DP and PT pulses. CFT is sluggish to the digits. Temperature gradient is normal proximal to distal, warm to cool. There is rubor noted to the anterior lower extremity of the left leg. Peripheral Pulses: Negative for posterior tibial pulses present or dorsalis pedis pulses present Skin no rashes or lesions noted and no jaundice Wound Narrative: Left posterior heel decubitus ulceration, stage II. Ulcerative site demonstrates subdermal hemorrhaging consistent with pressure, no signs of infection. Left dorsal hallux demonstrates dry stable eschar with localized erythema about the eschar site and distal hallux dorsally. No purulent drainage or malodor. Neuro oriented x3 and moves all extremities Psych cooperative and affect normal Debridement Note Debridement Note Wound debrided: Dorsal hallux Laterality: Left Wound Grade/Stage: Clark stage II Type of Debridement: Excisional debridement Anesthesia Used: 5% Lidocaine Gel Depth: Down to and including healthy tissue and in the subcutaneous layer Percentage of wound debrided: 100 Instrument Used: 3mm curette Tissue Removed: Fibrous, devitalized subcutaneous, biofilm, slough Severity: Fat Layer Exposed Amount of bleeding with debridement: Mild Bleeding Controlled with: Compression and gauze Patient tolerated procedure: Patient tolerated procedure well Post-Debridement Measurements and Additional Note: Post-Debridement Measurements/Treatment - Nurse 1 - General Ulcer Assessment Start: 08/25/21 08:21 Freq: Status: Active Protocol: [id number] Activity Type Activity Date Activity User E-sign Co-sign Detail Recorded Client Recorded Date Recorded By Document 08/25/21 08:22 DAT [id number] 08/25/21 08:30 DAT 08/25/21 08:22 - Today's Visit Information Type of service Initial Visit Arrival Mode Wheelchair Patient Identification Verified (Name & Yes ) Vital Signs Temperature (97.8 F-99.1 F) 97.4 F L Temperature Source Temporal Pulse Rate (60-100) 65 Pulse Location Monitor Blood Pressure (90/60-120/80) 131/49 H Blood Pressure Mean 76 Source Monitor Position Semi-Fowlers Blood Pressure Location Right Arm History Since Last Visit- (Skip if this is Patient's initial visit) Have you changed medications since your No last visit? Any new allergies or adverse reactions No Had a fall/change in ADL's that may No increase risk of falls Signs or symptoms of abuse and/or No neglect since last visit Have you been in the hospital since your No last visit? Has dressing in place as prescribed Yes Has compression in place as prescribed N/A Has offloadiing in place as prescribed N/A Experienced any changes in pain level or No management Left Footwear Regular Shoe Right Footwear Regular Shoe Pain Scale: 0-10 Numeric Is Patient Pain Free? Yes WC - Nurse 1 - General Ulcer Measurement Start: 08/25/21 08:21 Freq: Status: Active Protocol: Activity Type Activity Date Activity User E-sign Co-sign Detail Recorded Client Recorded Date Recorded By Document 08/25/21 08:22 DAT [id number] 08/25/21 08:30 DAT 08/25/21 08:22 Wound Center Nurse 1 #2 Left Hallux -Current Size (cm) - Length 0.6 -Current Size (cm) - Width 0.1 -Current Size (cm) - Depth 0.1 -Total Square Cm 0.06 -Exudate Amt None Present -Wound Margin Distinct, Outline Attached -Granulation Amt None Present (0 %) -Necrosis Amt Large (67-100%) -Necrotic Tissue Type Eschar -Texture (Julianna-wound Skin Appearance) Assessed, Scarring -Moisture (Julianna-wound Skin Appearance) No Abnormality, Assessed -Color (Julianna-wound Skin Appearance) No Abnormality, Assessed -Temperature (Julianna-wound Skin No Abnormality Appearance) (Pt Warm) -Tenderness on Palpation (Julianna-wound No Skin Appearance) -Ulcer Cleansing Rinsed/ Irrigated with Saline -Foul Odor after Cleansing No -Anesthetic Used 4% Lidocaine Solution,5% Lidocaine Gel #1 Left heel -Current Size (cm) - Length 0.5 -Current Size (cm) - Width 0.2 -Current Size (cm) - Depth 0.1 -Total Square Cm 0.10 -Exudate Amt None Present -Wound Margin Distinct, Outline Attached -Necrosis Amt Large (67-100%) -Necrotic Tissue Type Eschar -Texture (Julianna-wound Skin Appearance) Assessed, Scarring -Moisture (Julianna-wound Skin Appearance) No Abnormality, Assessed -Color (Julianna-wound Skin Appearance) No Abnormality, Assessed -Temperature (Julianna-wound Skin No Abnormality Appearance) (Pt Warm) -Tenderness on Palpation (Julianna-wound No Skin Appearance) -Ulcer Cleansing Rinsed/ Irrigated with Saline -Foul Odor after Cleansing No -Anesthetic Used 4% Lidocaine Solution,5% Lidocaine Gel Right Calf (cm) 44.5 Right Ankle (cm) 25.5 Left Calf (cm) 40.5 Left Ankle (cm) 25 WC - Nurse 2 - General Ulcer CM Notes Start: 08/25/21 08:21 Freq: Status: Active Protocol: Activity Type Activity Date Activity User E-sign Co-sign Detail Recorded Client Recorded Date Recorded By Document 08/25/21 09:19 PL [id number] 08/25/21 09:21 PL 08/25/21 09:19 Wound Center Nurse 2 #2 Left Hallux -Time 08:50 -Correct Patient Yes -Correct Side, Site, Position Yes -Correct Procedure Yes -Procedure Performed Yes -Type of Procedure Debridement -Clinical Debridement Subcutaneous -Tissue Removed Subcutaneous -Post Debridement (cm) - Length 0.6 -Post Debridement (cm) - Width 0.1 -Post Debridement (cm) - Depth 0.1 -Total Square (Post) (cm) 0.06 -Area of Debridement (cm) - Length 0.6 -Area of Debridement (cm) - Width 0.1 -Total Square (Area) (cm) 0.06 -Tunneling No -Undermining/Tunneling No -Circular Undermining No -Wound/Ulcer Outcome Not Healed -Ulcer Cleansing Rinsed/ Irrigated with Saline -Foul Odor after Cleansing No -Bioengineered Tissue No -Bleeding Controlled with Pressure -Treatment Response Procedure Tolerated Well -Debridement - Subq, 1st 20sq cm Yes #1 Left heel -Time 08:50 -Correct Patient Yes -Correct Side, Site, Position Yes -Correct Procedure Yes -Procedure Performed Yes -Type of Procedure Debridement -Clinical Debridement Subcutaneous -Tissue Removed Subcutaneous -Post Debridement (cm) - Length 0.5 -Post Debridement (cm) - Width 0.2 -Post Debridement (cm) - Depth 0.1 -Total Square (Post) (cm) 0.10 -Area of Debridement (cm) - Length 0.5 -Area of Debridement (cm) - Width 0.1 -Total Square (Area) (cm) 0.05 -Tunneling No -Undermining/Tunneling No -Circular Undermining No -Wound/Ulcer Outcome Not Healed -Ulcer Cleansing Rinsed/ Irrigated with Saline -Foul Odor after Cleansing No -Bioengineered Tissue No -Bleeding Controlled with Pressure -Treatment Response Procedure Tolerated Well -Debridement - Subq, 1st 20sq cm No Pain Scale: 0-10 Numeric Is Patient Pain Free? Yes WC - Nurse 3 - General Ulcer D/C NN Start: 08/25/21 08:21 Freq: Status: Active Protocol: Activity Type Activity Date Activity User E-sign Co-sign Detail Recorded Client Recorded Date Recorded By Document 08/25/21 09:06 GINA [id number] 08/25/21 09:08 GINA 08/25/21 09:06 Wound Care Nurse 3 #2 Left Hallux -Ulcer Cleansing Rinsed/ Irrigated with Saline -Foul Odor after Cleansing No -Negative Pressure Wound Therapy N/A -Other Dressing betadine -Primary Dressing Covered/Secured with Dry Gauze,Dry Gauze & Roll Gauze,Secured with Tape #1 Left heel -Ulcer Cleansing Rinsed/ Irrigated with Saline -Foul Odor after Cleansing No -Negative Pressure Wound Therapy N/A -Other Dressing betadine -Primary Dressing Covered/Secured with Dry Gauze & Roll Gauze, Secured with Tape Pain Scale: 0-10 Numeric Is Patient Pain Free? No WC - Visit Discharge Discharge Condition Stable Ambulatory Status Wheelchair Medication Reconcilliation completed & Yes provided to patient/care provider Clinical Summary of Care Provided Yes Assessment/Plan Assessment/Plan (1) Chronic respiratory failure with hypoxia, on home oxygen therapy: CODE(S): J96.11 - Chronic respiratory failure with hypoxia; Z99.81 - Dependence on supplemental oxygen (2) Essential hypertension: CODE(S): I10 - Essential (primary) hypertension (3) Hyperlipidemia: CODE(S): E78.5 - Hyperlipidemia, unspecified (4) Diabetes mellitus with diabetic polyneuropathy: CODE(S): E11.42 - Type 2 diabetes mellitus with diabetic polyneuropathy (5) Obesity: CODE(S): E66.9 - Obesity, unspecified (6) Obstructive sleep apnea: CODE(S): G47.33 - Obstructive sleep apnea (adult) (pediatric) (7) COPD (chronic obstructive pulmonary disease): CODE(S): J44.9 - Chronic obstructive pulmonary disease, unspecified (8) Decubitus ulcer of left heel, stage 2: CODE(S): L89.622 - Pressure ulcer of left heel, stage 2 (9) Decubitus ulcer of dorsum of foot, stage 2: CODE(S): L89.892 - Pressure ulcer of other site, stage 2 PLAN: Plan Patient seen and evaluated DP and PT pulses of the left foot nonpalpable. Capillary fill time is sluggish to the digits. I am ordering arterial and venous studies of the left lower extremity to rule out underlying arterial disease. Decubitus ulceration left heel, stage II demonstrates subdermal hemorrhaging consistent with pressure and pain to palpation of the site. No signs of infection. I discussed continued offloading of the site utilizing pillows or donut pad. I discussed pressure reduction is essential for healing this wound. Decubitus ulceration left dorsal hallux, stage II demonstrates stable eschar with surrounding erythema. Patient is currently taking Keflex per her PCP and will finish antibiotic on 08/26/2021. She currently demonstrates no constitutional symptoms. A debridement of the site was performed as stated in the clinical panel above. Pending arterial studies further debridement/Santyl and grafting product to be considered. She may wash with soap and water and pat the site dry. She was instructed to paint the sites with Betadine and dressed with dry sterile dressings. She is to perform dressing changes daily. If site demonstrates no improvement x-ray will be considered to rule out osteomyelitis. Answered all of her questions to her satisfaction. She will return to the wound care center in 1 week for continued care The problems addressed require a low medical decision making level which includes two or more minor problems, a stable chronic illness, or an acute uncomplicated illness or injury. The medical decision making level is low. There is noted low risk of morbidity after considering this treatment plan and diagnostic data. Note: [employer] speech recognition auto garage mechanic software was used to create portions of this document. Sound-alike and misspelled words, as well as other auto garage mechanic errors may be contained in the documentation.
== END 2021-08-25 23:59 | disposition home or self-care (01) ==
LOC: WC 07:55
PROVIDERS: PCP Nurse Practitioner Adult Health; Visit Provider Student in an Organized Health Care Education/Training Program
DX: L89.622 Pressure ulcer of left heel, stage 2 (principal); L89.892 Pressure ulcer of other site, stage 2; J44.9 Chronic obstructive pulmonary disease, unspecified; I11.0 Hypertensive heart disease with heart failure; I50.32 Chronic diastolic (congestive) heart failure; E11.42 Type 2 diabetes mellitus with diabetic polyneuropathy; J96.11 Chronic respiratory failure with hypoxia; Z79.4 Long term (current) use of insulin; I25.10 Atherosclerotic heart disease of native coronary artery without angina pectoris; E78.5 Hyperlipidemia, unspecified; E66.9 Obesity, unspecified; G47.33 Obstructive sleep apnea (adult) (pediatric); Z99.81 Dependence on supplemental oxygen; Z79.82 Long term (current) use of aspirin; Z79.899 Other long term (current) drug therapy; Z79.1 Long term (current) use of non-steroidal anti-inflammatories (NSAID); Z87.891 Personal history of nicotine dependence
CPT/HCPCS: 11042; 99213; G0463

== ENCOUNTER 2021-09-11 08:11 | Emergency (ER) | payer MEDICARE, MEDICAID, SELFPAY ==
[2021-09-11 08:12] VITALS: BP 165/70; PULSE 86; RESP 14; TEMP 36.2; O2SAT 100; BMI 39.6
--- NOTE | 2021-09-11 08:39 | RAD_ITS ---
STUDY: X-RAY - LEFT FOOT CLINICAL: Female, 66 years old. GRT TOE MEDIAL SIDE WOUND, STARTED A BLISTER. CRACK IN HEEL. PT IS DIABETIC. TECHNIQUE: 3 view(s) of the foot. COMPARISON: None. FINDINGS: Normal talus, calcaneus, and tarsal bones. Normal visualized subtalar, talonavicular, calcaneocuboid, tarsal and tarsometatarsal articulations. Normal metatarsi. 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 Normal tibial and fibular sesamoid bones. Normal interphalangeal joint of the great toe. Normal phalanges of the great toe. Normal second through fifth metatarsophalangeal joints. Normal interphalangeal joints and phalanges of the lesser toes. Soft tissue swelling of the first toe. RAD/Foot min 3 Views IMPRESSION: First toe soft tissue swelling without obstructive bony process Electronically Signed: Sameer Rojas MD ([place]) at 9:28 EDT ,
--- NOTE | 2021-09-11 08:40 | ED.VIS.LOWEX ---
HPI History of Present Illness Chief Complaint: Lower Extremity Injury Narrative Narrative: 66-year-old female presenting with left foot pain. She states she has a history of decubitus ulcers of the left heel and left great toe. She states she sees a wound care clinic. Patient was seen a couple of days ago at the wound care clinic. She states that she is put on Tylenol and Ultram but the pain is worse overnight. Denies any new trauma. No fever or chills. No systemic signs or symptoms. 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 Closed head injury COPD (chronic obstructive pulmonary disease) Decubitus ulcer of left heel, stage 3 Decubitus ulcer, heel, left, unstageable Depression Diabetes type 2, controlled Essential hypertension Former smoker History of non-ST elevation myocardial infarction (NSTEMI) (02/24/17) Hyperlipidemia Hypothyroid Non-rheumatic tricuspid valve insufficiency Nonrheumatic mitral (valve) insufficiency Obesity Obstructive sleep apnea On home O2 Secondary pulmonary arterial hypertension Type 2 diabetes mellitus Home Medications bupropion HCl 300 mg 24 hr tablet, extended release 300 mg PO DAILY Check with primary doctor 09/02/20 [History Last Taken 09/02/20] cholecalciferol (vitamin D3) 50 mcg (2,000 unit) capsule (Vitamin D3) 50 mcg PO DAILY supplement 09/02/20 [History Last Taken 09/02/20] fluticasone furoate 100 mcg-vilanterol 25 mcg/dose inhalation powder (Breo Ellipta) 1 inh inhalation DAILY breathing 09/02/20 [History Last Taken 09/02/20] fluticasone propionate 50 mcg/actuation nasal spray,suspension 1 spray intranasal DAILY Check with primary doctor 09/02/20 [History Last Taken 09/02/20] furosemide 80 mg tablet 80 mg PO DAILY water pill 09/02/20 [History Last Taken 09/02/20] levothyroxine 88 mcg tablet 88 mcg PO DAILY thyroid 09/02/20 [History Last Taken 09/02/20] lorazepam 1 mg tablet 1 mg PO QHS anxiety 09/02/20 [History Last Taken 09/01/20] montelukast 10 mg tablet 10 mg PO DAILY Check with primary doctor 09/02/20 [History Last Taken 09/02/20] trazodone 100 mg tablet 100 mg PO QHS sleep 09/02/20 [History Last Taken 09/01/20] carvedilol 6.25 mg tablet 6.25 mg PO BID #60 tabs 01/06/21 [Rx Last Taken Unknown] atorvastatin 80 mg tablet 80 mg PO QHS #30 tabs 04/08/21 [Rx Last Taken Unknown] aspirin 81 mg tablet,delayed release (Adult Aspirin Regimen) 81 mg PO DAILY 05/17/21 [History Last Taken Unknown] amlodipine 10 mg tablet 10 mg PO DAILY 08/25/21 [History Last Taken Unknown] gabapentin 100 mg capsule (Neurontin) 100 mg PO TID 08/25/21 [History Last Taken Unknown] dulaglutide 0.75 mg/0.5 mL subcutaneous pen injector (Trulicity) 0.75 mg subcut QWEEK 09/02/21 [History Last Taken Unknown] insulin detemir U-100 100 unit/mL (3 mL) subcutaneous pen 37 unit subcut QHS blood sugar 09/02/21 [History Last Taken Unknown] insulin lispro 100 unit/mL subcutaneous pen See Protocol subcut QACHS blood sugar 09/02/21 [History Last Taken Unknown] ipratropium 0.5 mg-albuterol 3 mg (2.5 mg base)/3 mL nebulization soln 3 ml inhalation BID breathing tx 09/02/21 [History Last Taken Unknown] meloxicam 7.5 mg tablet 7.5 mg PO DAILY 09/02/21 [History Last Taken Unknown] paroxetine HCl 30 mg tablet 60 mg PO QHS mental health 09/02/21 [History Last Taken Unknown] cephalexin 500 mg capsule 500 mg PO Q6 #40 caps 09/11/21 [Rx Last Taken Unknown] hydrocodone-acetaminophen 5-325mg 5mg-325mg 1 tab PO Q6H PRN pain 3 days #10 tabs 09/11/21 [Rx Last Taken Unknown] Allergy/AdvReac Type Severity Reaction Status Date / Time Sulfa (Sulfonamide Allergy Anaphylaxis Verified 09/11/21 08:14 Antibiotics) sulfur dioxide Allergy Anaphylaxis Verified 09/11/21 08:14 Family History Grandmother Diabetes Mother Heart disease Surgical History H/O right heart catheterization History of cataract surgery History of coronary artery stent placement (02/24/17) Tubal ligation status Social History Smoking Status: Former smoker how long ago did patient quit smokin alcohol intake: former year quit: 1999 substance use type: does not use caffeine: Yes Type: carbonated beverages and tea ROS ROS ED Constitutional Constitutional ED: Denies chills or fever(s) Eyes Eyes: Denies change in vision ENT ENT ED: Denies rhinorrhea or sore throat Cardiovascular Cardiovascular: Denies chest pain or palpitations Respiratory/Chest Respiratory/Chest: Denies cough or dyspnea Gastrointestinal Gastrointestinal: Denies abdominal pain or constipation Genitourinary Genitourinary ED: Denies dysuria or hematuria Musculoskeletal Musculoskeletal: Reports other Details: Left heel pain and left great toe pain Integumentary Reports other Details: Ulcerations to the left great toe and left heel Neurologic Neurologic: Denies headache(s) Psychiatric Psychiatric: Denies anxiety or depression EXAM Physical Exam Const Vital Signs: 09/11/21 08:12 09/11/21 10:31 Temperature 97.1 F L Temperature Source Temporal Pulse Rate 86 68 Respiratory Rate 14 15 Blood Pressure 165/70 H 157/59 H Blood Pressure Mean 101 Pulse Ox 100 98 Oxygen Delivery Method Room Air Positive well nourished General Appearance ED: NAD HEENT normocephalic Eyes PERRL Resp normal respiratory effort and no retractions Cardio regular rate and regular rhythm Extremity Extremity Narrative: There is a quarter sized ulceration of the left heel without any fluctuance. There is a nickel sized area on the medial aspect of the left great toe. Neuro oriented x3 and CN's II-XII intact bilaterally Sensorium / Orientation: alert Motor Exam: strength 5/5 throughout Psych mental status grossly normal Skin Skin Narrative: As described above MDM MDM MDM Narrative Medical decision making narrative: I obtained lab work on the patient which shows no leukocytosis. Patient does have anemia with a hemoglobin 8.7. She states that she was recently told she is anemic and she is also recently told that she has chronic kidney disease. She states she has been referred to a dna sequencing associate for this. Her GFR today is 46. Electrolytes are unremarkable. CRP slightly elevated at 6.4 and ESR minimally elevated at 51. X-ray of the left foot does not show any acute fracture. There is no evidence of osteomyelitis either on my interpretation. Radiologist agree. There is soft tissue swelling here and I will treat the patient for cellulitis. She started on Keflex. She will follow-up with the wound care clinic. Impression: 1. Left foot cellulitis Lab Data Attestation: I reviewed the patient's lab results. Labs: Laboratory Results - last 24 hr 09/11/21 09/11/21 08:46 08:46 WBC 8.4 RBC 2.95 L Hgb 8.7 L Hct 27.4 L MCV 92.9 MCH 29.5 MCHC 31.8 L RDW Std Deviation 46.1 H RDW Coeff of Magen 13.8 Plt Count 169 MPV 9.8 Immature Gran % (Auto) 0.600 Neut % (Auto) 77.3 H Lymph % (Auto) 10.2 L [place] % (Auto) 7.5 Eos % (Auto) 3.8 Baso % (Auto) 0.6 Absolute Neuts (auto) 6.5 Absolute Lymphs (auto) 0.85 Nucleated RBC % 0 ESR 51 H Sodium 140 Potassium 4.7 Chloride 110 H Carbon Dioxide 27.0 Anion Gap 3 L BUN 25 H Creatinine 1.24 H Estim Creat Clear Calc 40.70 Est GFR (MDRD) Af Amer 56 L Est GFR (MDRD) Non-Af 46 L BUN/Creatinine Ratio 20.2 H Glucose 148 H Calcium 9.2 Total Bilirubin 0.50 AST 18 ALT 24 Alkaline Phosphatase 141 H C-React Prot Ext Range 6.84 H Total Protein 6.7 Albumin 2.7 L Globulin 4.0 Albumin/Globulin Ratio 0.7 L Radiography Diagnostic Testing: Clinical Impression(s) from Imaging Studies Foot X-Ray 09/11/21 08:39 IMPRESSION: First toe soft tissue swelling without obstructive bony process Electronically Signed: Sameer Rojas MD ([place]) at 9:28 EDT , Discharge Plan Triage Chief Complaint: Lower Extremity Injury ED Provider: Reese Saez Dx/Rx/DC Orders Instructions: ED Anemia, Type Not Specified (Adult), ED Cellulitis, ED Pressure Injury Prescriptions: New hydrocodone-acetaminophen 5-325 mg tablet 1 tab PO Q6H PRN (Reason: pain) 3 Days Qty: 10 0RF cephalexin 500 mg capsule 500 mg PO Q6 Qty: 40 0RF No Action aspirin [Adult Aspirin Regimen] 81 mg tablet,delayed release (DR/EC) 81 mg PO DAILY Trulicity 0.75 mg/0.5 mL pen injector 0.75 mg subcut QWEEK Label Comments: 0.5 ML (0.75MG) SQ EVERYMWEEK DX:X meloxicam 7.5 mg tablet 7.5 mg PO DAILY levothyroxine 88 mcg Tablet 88 mcg PO DAILY furosemide 80 mg Tablet 80 mg PO DAILY trazodone 100 mg Tablet 100 mg PO QHS montelukast 10 mg Tablet 10 mg PO DAILY lorazepam 1 mg Tablet 1 mg PO QHS fluticasone propionate 50 mcg/actuation [place],Suspension 1 spray INTRANASAL DAILY bupropion HCl 300 mg Tablet Extended Release 24 Hr 300 mg PO DAILY cholecalciferol (vitamin D3) [Vitamin D3] 50 mcg (2,000 unit) Capsule 50 mcg PO DAILY fluticasone furoate-vilanterol [Breo Ellipta] 100-25 mcg/dose Blister With Device 1 inh INHALATION DAILY ipratropium-albuterol 0.5 mg-3 mg(2.5 mg base)/3 mL solution for nebulization 3 ml INHALATION BID insulin lispro 100 unit/mL insulin pen See Protocol SUBCUT QACHS Protocol: 6. Sliding Scale Insulin Custom Condition: 151-175 Dose/Route: 5 Condition: 176-200 Dose/Route: 7 Condition: 201-250 Dose/Route: 9 Condition: 251-300 Dose/Route: 11 Condition: 301-350 Dose/Route: 13 Condition: 351-400 Dose/Route: 15 Condition: 401-450 Dose/Route: 19 Protocol Text: Custom Sliding Scale Rx Instructions: 10 units plus sliding scale. SEE SLIDING SCALE paroxetine HCl 30 mg tablet 60 mg PO QHS insulin detemir U-100 100 unit/mL (3 mL) insulin pen 37 unit SUBCUT QHS amlodipine 10 mg Tablet 10 mg PO DAILY gabapentin [Neurontin] 100 mg Capsule 100 mg PO TID carvedilol 6.25 mg tablet 6.25 mg PO BID Qty: 60 11RF atorvastatin 80 mg tablet 80 mg PO QHS Qty: 30 11RF Primary Care Provider: Geovanna Mott PATHOLOGY TECH Referrals: Geovanna Mott PATHOLOGY TECH, PATHOLOGY TECH-C [Primary Care Provider] - Disposition Disposition: Home, Self Care Discharge Date/Time: 09/11/21 10:32
[2021-09-11] MEDS: Ondansetron 4 MG/2 ML Vial IV (08:49)
[2021-09-11] MEDS: Morphine 4 MG/ML Syringe IV (08:49)
[2021-09-11 09:07] LABS: ALB/GLOB Ratio 0.7 RATIO (0.9-2.4); AST(SGOT) 18 U/L (15-37); Alanine Aminotransfer ALT/SGPT 24 U/L (13-56); Albumin, Serum 2.7 g/dL (3.2-5.0); Alkaline Phosphatase 141 U/L (45-117); Anion Gap 3 (5-15); BUN 25 mg/dL (7-18); BUN/Creat Ratio 20.2 RATIO (10-20); CRP 6.84 mg/L (0.0-3.0); Calcium,Total 9.2 mg/dL (8.5-10.1); Chloride 110 mmol/L (98-107); Creatinine, Serum 1.24 mg/dL (0.55-1.02); EST Glomerular Filtration Rate 46 mL/min (>60); Est Glom Filt Rate - Afr Amer 56 mL/min (>60); Glucose 148 mg/dL (74-106); Potassium 4.7 mmol/L (3.5-5.1); Protein, Total 6.7 g/dL (6.4-8.2); Sodium Level 140 mmol/L (136-145)
[2021-09-11 09:10] LABS: Absolute Lymphocyte Count 0.85 X10^3/uL (0.83-4.51); Absolute Neutrophil Count 6.5 X10^3/uL (2.0-7.7); Basophil# 0.05 X10^3/uL; Basophil% 0.6 % (0-1); Eosinophil# 0.32 X10^3/uL; Eosinophils% 3.8 % (0-5); Erythrocyte Sedimentation Rate 51 mm/hr (0-30); Hematocrit 27.4 % (37-47); Hemoglobin 8.7 g/dL (12.0-15.0); Lymphocyte # 0.85 X10^3/ul (0.83-4.51); Lymphocyte % 10.2 % (19-41); Mean Corp Hgb Conc 31.8 g/dL (32-36); Mean Corpuscular Hgb 29.5 pg (27.0-32.0); Mean Corpuscular Volume 92.9 fL (81-99); Mean Platelet Vol. 9.8 fl (6.2-12.0); Monocyte# 0.63 X10^3/uL; Monocyte% 7.5 % (0-10); NRBC Flagged by Analyzer 0 % (0-5); Neutrophil # 6.47 X10^3/uL (2.7-7.7); Neutrophil % 77.3 % (47-70); Platelet Count 169 K/mm3 (150-450); RBC Distribution Width CV 13.8 % (11.6-14.6); RBC Distribution Width SD 46.1 fl (35.1-43.9); Red Blood Count 2.95 M/mm3 (4.2-5.4); White Blood Count 8.4 K/mm3 (4.4-11.0)
[2021-09-11] MEDS: Cephalexin 250 MG Capsule 500 MG PO (10:09)
[2021-09-11 10:31] VITALS: BP 157/59; PULSE 68; RESP 15; O2SAT 98
== END 2021-09-11 10:32 | disposition home or self-care (01) ==
PROVIDERS: Emergency Provider Student in an Organized Health Care Education/Training Program; PCP Nurse Practitioner Adult Health; Visit Provider Student in an Organized Health Care Education/Training Program
DX: L03.116 Cellulitis of left lower limb (principal); E11.621 Type 2 diabetes mellitus with foot ulcer; L97.429 Non-pressure chronic ulcer of left heel and midfoot with unspecified severity; J44.9 Chronic obstructive pulmonary disease, unspecified; I50.32 Chronic diastolic (congestive) heart failure; I11.0 Hypertensive heart disease with heart failure; E78.5 Hyperlipidemia, unspecified; D64.9 Anemia, unspecified; I25.10 Atherosclerotic heart disease of native coronary artery without angina pectoris; E03.9 Hypothyroidism, unspecified; J45.909 Unspecified asthma, uncomplicated; Z87.891 Personal history of nicotine dependence; Z79.899 Other long term (current) drug therapy
CPT/HCPCS: 73630; 80053; 85025; 85652; 86140; 96374; 96375; 99284; A4216; J2405

== ENCOUNTER 2021-09-12 10:45 | Outpatient (RCR) | payer MEDICARE, MEDICAID, SELFPAY ==
[2021-08-26 00:51] VITALS: BP 131/49; PULSE 65; TEMP 36.3
[2021-09-01 11:49] VITALS: BP 127/56; PULSE 74; RESP 16; TEMP 36
--- NOTE | 2021-09-01 14:15 | PCM.WC.HP ---
History of Present Illness Date of Service: 09/01/21 Chief Complaint: Left heel wound, left hallux wound History of Wound: Ms. Lincoln is a transfer of care to me. Had been seen previously by a kick press operator here in the facility. Being managed for left great toe and heel ulcerations which have been present for about a month. Great toe said to have possibly been from pressure from her shoe however no clear/known precipitating factor for her left heel. History of diabetes mellitus currently on Trulicity and insulin. Unsure of what her last A1c was. No known history of peripheral arterial disease but does have a history of venous insufficiency. Does have stigmata as well as peripheral arterial disease, no recent MARY. Currently lives in an assisted living facility. She feels well at this time, denies chills, fever, nausea or vomiting. [facility] Medical History (Updated 09/01/21 @ 14:[address] Danny Ghosh MD) Acute cervical myofascial strain Acute on chronic respiratory failure with hypoxemia Asthma Atherosclerotic heart disease of [place] coronary artery without angina pectoris Chronic heart failure with preserved ejection fraction (HFpEF) Chronic ulcer of great toe of left foot Closed head injury COPD (chronic obstructive pulmonary disease) Decubitus ulcer, heel, left, unstageable Depression Diabetes type 2, controlled Essential hypertension Former smoker History of non-ST elevation myocardial infarction (NSTEMI) (02/24/17) Hyperlipidemia Hypothyroid Non-rheumatic tricuspid valve insufficiency Nonrheumatic mitral (valve) insufficiency Obesity Obstructive sleep apnea On home O2 Secondary pulmonary arterial hypertension Type 2 diabetes mellitus Home Medications albuterol sulfate 1.25 mg/3 mL solution for nebulization 1 mg inhalation Q6H PRN Shortness Of Breath 09/02/20 [History Last Taken 09/02/20] bupropion HCl 300 mg 24 hr tablet, extended release 300 mg PO DAILY Check with primary doctor 09/02/20 [History Last Taken 09/02/20] cholecalciferol (vitamin D3) 50 mcg (2,000 unit) capsule (Vitamin D3) 50 mcg PO DAILY supplement 09/02/20 [History Last Taken 09/02/20] fluticasone furoate 100 mcg-vilanterol 25 mcg/dose inhalation powder (Breo Ellipta) 1 inh inhalation DAILY breathing 09/02/20 [History Last Taken 09/02/20] fluticasone propionate 50 mcg/actuation nasal spray,suspension 1 spray intranasal DAILY Check with primary doctor 09/02/20 [History Last Taken 09/02/20] furosemide 80 mg tablet 80 mg PO DAILY water pill 09/02/20 [History Last Taken 09/02/20] insulin detemir U-100 100 unit/mL (3 mL) subcutaneous pen 35 unit subcut QHS blood sugar 09/02/20 [History Last Taken 09/01/20] insulin lispro 100 unit/mL subcutaneous pen See Protocol subcut TID blood sugar 09/02/20 [History Last Taken 09/02/20] ipratropium 0.5 mg-albuterol 3 mg (2.5 mg base)/3 mL nebulization soln 3 ml inhalation Q4H PRN breathing tx 09/02/20 [History Last Taken 09/02/20] levothyroxine 88 mcg tablet 88 mcg PO DAILY thyroid 09/02/20 [History Last Taken 09/02/20] lorazepam 1 mg tablet 1 mg PO QHS anxiety 09/02/20 [History Last Taken 09/01/20] montelukast 10 mg tablet 10 mg PO DAILY Check with primary doctor 09/02/20 [History Last Taken 09/02/20] paroxetine HCl 30 mg tablet 30 mg PO DAILY mental health 09/02/20 [History Last Taken 09/02/20] trazodone 100 mg tablet 100 mg PO QHS sleep 09/02/20 [History Last Taken 09/01/20] lisinopril 20 mg tablet 20 mg PO DAILY #30 tabs 09/06/20 [Rx Last Taken Unknown] carvedilol 6.25 mg tablet 6.25 mg PO BID #60 tabs 01/06/21 [Rx Last Taken Unknown] atorvastatin 80 mg tablet 80 mg PO QHS #30 tabs 04/08/21 [Rx Last Taken Unknown] aspirin 81 mg tablet,delayed release (Adult Aspirin Regimen) 81 mg PO DAILY 05/17/21 [History Last Taken Unknown] bromfenac 0.075 % eye drops (BromSite) 1 drp ophthalmic (eye) DAILY 05/17/21 [History Last Taken Unknown] amlodipine 5 mg tablet 5 mg PO DAILY #90 tabs 06/07/21 [Rx Last Taken Unknown] amlodipine 10 mg tablet 10 mg PO DAILY 08/25/21 [History Last Taken Unknown] benzonatate 100 mg capsule 100 mg PO BID PRN Pain, Mild 08/25/21 [History Last Taken Unknown] dextromethorphan-guaifenesin 20 mg-400 mg tablet (Mucus Relief DM) 1 tab PO Q4H PRN Nasal Congestion 08/25/21 [History Last Taken Unknown] gabapentin 100 mg capsule (Neurontin) 100 mg PO TID 08/25/21 [History Last Taken Unknown] loratadine 10 mg capsule 10 mg PO DAILY 08/25/21 [History Last Taken Unknown] ofloxacin 0.3 % eye drops 0 drp EACH EYE .COMPLEX 08/25/21 [History Last Taken Unknown] Allergy/AdvReac Type Severity Reaction Status Date / Time Sulfa (Sulfonamide Allergy Anaphylaxis Verified 06/03/21 15:16 Antibiotics) sulfur dioxide Allergy Anaphylaxis Verified 06/03/21 15:16 Family History Grandmother Diabetes Mother Heart disease Surgical History H/O right heart catheterization History of coronary artery stent placement (02/24/17) Tubal ligation status Social History Smoking Status: Former smoker ROS Constitutional Constitutional: Denies change in weight, chills, excessive sweating, fatigue, fever(s), increased appetite, night sweats, poor appetite or snoring Eyes Eyes: Denies change in vision, discharge from eye(s), double vision, dry eyes, excessive blinking, exophthalmos, eye pain, floaters, foreign body or loss of central vision ENT HEENT: Denies nasal congestion, nasal discharge, sinus pain or sore throat Cardiovascular Cardiovascular: Denies chest pain, claudication, cyanosis, diaphoresis, dizziness, lightheadedness, nausea or palpitations Respiratory/Chest Respiratory/Chest: Denies cough, excessive phlegm production, hemoptysis, hoarseness, inability to speak, mouth breathing, shortness of breath at rest or wheezing Gastrointestinal Gastrointestinal: Denies abdominal pain, constipation, diarrhea, nausea or vomiting Genitourinary Genitourinary: Denies dysuria, hematuria, urinary frequency, urinary hesitancy or urinary incontinence Musculoskeletal Musculoskeletal: Denies atrophy, deformity, difficulty walking, joint pain, joint stiffness, joint swelling, muscle cramps, muscle spasms or numbness Integumentary Integumentary: Reports wounds; Denies change in pigmentation, changing lesions, dry skin, erythema, furuncle, jaundice, lesions, pruritus or rash Neurologic Neurologic: Reports burning sensations and tingling; Denies dizziness, focal weakness, frequent falls, lack of coordination, numbness or seizures Psychiatric Psychiatric: Denies auditory hallucinations, cognitive impairment, confusion, difficulty concentrating, hallucinations, homicidal ideation, hopelessness or irritability Endocrine Endocrinology: Denies change in body appearance, cold intolerance, deepening of the voice, palpitations, polydipsia or polyuria Hematologic/Lymphatic Hematologic/Lymphatic: Denies easy bleeding or easy bruising Allergic/Immunologic Allergic/Immunologic: Denies itchy eyes, lip swelling, tongue swelling, urticaria, eczemia or wheezing Vital Signs Vital Signs Vital Signs: 09/01/21 11:49 Temperature 96.8 F L Temperature Source Temporal Pulse Rate 74 Respiratory Rate 16 Blood Pressure 127/56 H Blood Pressure Mean 79 Blood Pressure Source Monitor Blood Pressure Position Sitting Blood Pressure Location Left Arm Oxygen Delivery Method Nasal Cannula Oxygen Flow Rate (L/min) 3 Physical Exam Const alert, oriented x3 and no apparent distress General Appearance: cooperative and comfortable HEENT normocephalic, head/scalp atraumatic and hearing grossly normal bilaterally Head and Scalp: normal to inspection Eyes EOMs intact bilaterally General Eye: normal appearance of both eyes Neck full ROM and supple General: normal visual inspection Resp normal respiratory effort and normal air movement Effort and Inspection: able to speak in complete sentences Cardio regular rate, regular rhythm, S1 normal heart sound and S2 normal heart sound GI soft to palpation and non-tender Extremity General Extremity: edema Skin Wounds: wounds noted Neuro oriented x3, CN's II-XII intact bilaterally and moves all extremities Psych mental status grossly normal, cooperative and affect normal Appearance: grossly normal Attitude: calm Debridement Note Debridement Note Wound debrided: Left Heel Type of Debridement: Excisional debridement Anesthesia Used: 4% Lidocaine Solution Depth: Down to and including healthy tissue Percentage of wound debrided: 100 Instrument Used: 5mm curette and Forceps Tissue Removed: Slough and devitalized tissue Amount of bleeding with debridement: Mild Bleeding Controlled with: Pressure Patient tolerated procedure: Patient tolerated procedure well Post-Debridement Measurements and Additional Note: Post-Debridement Measurements/Treatment - Nurse 1 - General Ulcer Assessment Start: 09/01/21 11:47 Freq: Status: Active Protocol: [id number] Activity Type Activity Date Activity User E-sign Co-sign Detail Recorded Client Recorded Date Recorded By Document 09/01/21 11:49 [facility] [id number] 09/01/21 11:59 [facility] 09/01/21 11:49 - Today's Visit Information Type of service Follow-up Visit (Physician/[employer] ) Arrival Mode Wheelchair Transfer Assistance Other Transfer Assist (Other) STAND BY Patient Identification Verified (Name & Yes ) Patient Requires Transmission-Based No Precautions Vital Signs Temperature (97.8 F-99.1 F) 96.8 F L Temperature Source Temporal Pulse Rate (60-100) 74 Pulse Location Monitor Respiratory Rate (12-18) 16 Respiratory rate source Observation Oxygen Delivery Method Nasal Cannula O2 L/MIN 3 Blood Pressure (90/60-120/80) 127/56 H Blood Pressure Mean 79 Source Monitor Position Sitting Blood Pressure Location Left Arm History Since Last Visit- (Skip if this is Patient's initial visit) Have you changed medications since your No last visit? Any new allergies or adverse reactions No Had a fall/change in ADL's that may No increase risk of falls Signs or symptoms of abuse and/or No neglect since last visit Have you been in the hospital since your No last visit? Has dressing in place as prescribed Yes Has compression in place as prescribed No Has offloadiing in place as prescribed Yes Experienced any changes in pain level or No management Right Footwear Regular Shoe Other Footwear NO SHOE TO LT FOOT. DRSG ONLY Pain Scale: 0-10 Numeric Is Patient Pain Free? Yes - Nurse 1 - General Ulcer Measurement Start: 09/01/21 11:47 Freq: Status: Active Protocol: Activity Type Activity Date Activity User E-sign Co-sign Detail Recorded Client Recorded Date Recorded By Document 09/01/21 11:49 [facility] [id number] 09/01/21 11:59 [facility] 09/01/21 11:49 Wound Center Nurse 1 #2 Left Hallux -Combined with other wound No -Current Size (cm) - Length 1 -Current Size (cm) - Width 1.3 -Current Size (cm) - Depth 0.1 -Total Square Cm 1.3 -Date of Last Picture (Recall this 09/01/21 field) -Photo Taken Yes -Epithelialization None Present -Tunneling No -Undermining/Tunneling No -Circular Undermining No -Exudate Amt Small -Exudate Type Serous -Wound Margin Distinct, Outline Attached -Granulation Amt Small (1-33%) -Granulation Quality Red -Slough/Fibrin Yes -Necrosis Amt Large (67-100%) -Necrotic Tissue Type Eschar -Texture (Julianna-wound Skin Appearance) Assessed, Scarring -Moisture (Julianna-wound Skin Appearance) Assessed,Dry/ Scaly -Color (Julianna-wound Skin Appearance) Assessed -Temperature (Julianna-wound Skin No Abnormality Appearance) (Pt Warm) -Tenderness on Palpation (Julianna-wound No Skin Appearance) -Ulcer Cleansing Soap and Water -Foul Odor after Cleansing No -Anesthetic Used 4% Lidocaine Solution #1 Left heel -Combined with other wound No -Current Size (cm) - Length 1.3 -Current Size (cm) - Width 1 -Current Size (cm) - Depth 0.1 -Total Square Cm 1.3 -Date of Last Picture (Recall this 09/01/21 field) -Photo Taken Yes -Epithelialization None Present -Tunneling No -Undermining/Tunneling No -Circular Undermining No -Exudate Amt None Present -Wound Margin Distinct, Outline Attached -Granulation Amt None Present (0 %) -Slough/Fibrin Yes -Necrosis Amt Large (67-100%) -Necrotic Tissue Type Eschar -Texture (Julianna-wound Skin Appearance) Assessed, Fluctuance -Moisture (Julianna-wound Skin Appearance) Assessed,Dry/ Scaly -Color (Julianna-wound Skin Appearance) Assessed -Temperature (Julianna-wound Skin No Abnormality Appearance) (Pt Warm) -Tenderness on Palpation (Julianna-wound Yes Skin Appearance) -Ulcer Cleansing Soap and Water -Foul Odor after Cleansing No -Anesthetic Used 4% Lidocaine Solution Lower Limb Edema Present Yes Left Calf (cm) 42.7 Left Ankle (cm) 25.2 WC - Nurse 2 - General Ulcer CM Notes Start: 09/01/21 11:47 Freq: Status: Active Protocol: Activity Type Activity Date Activity User E-sign Co-sign Detail Recorded Client Recorded Date Recorded By Document 09/01/21 12:18 MW [id number] 09/01/21 12:27 MW 09/01/21 12:18 Wound Center Nurse 2 #2 Left Hallux -Time 12:19 -Correct Patient Yes -Correct Side, Site, Position Yes -Correct Procedure Yes -Procedure Performed Yes -Type of Procedure Debridement -Clinical Debridement Subcutaneous -Tissue Removed Subcutaneous -Post Debridement (cm) - Length 1.1 -Post Debridement (cm) - Width 1.4 -Post Debridement (cm) - Depth 0.1 -Total Square (Post) (cm) 1.54 -Area of Debridement (cm) - Length 1.1 -Area of Debridement (cm) - Width 1.4 -Total Square (Area) (cm) 1.54 -Tunneling No -Undermining/Tunneling No -Circular Undermining No -Wound/Ulcer Outcome Not Healed -Ulcer Cleansing Rinsed/ Irrigated with Saline -Foul Odor after Cleansing No -Bioengineered Tissue No -Bleeding Controlled with Pressure -Treatment Response Procedure Tolerated Well -Offloading No -Debridement - Subq, 1st 20sq cm Yes #1 Left heel -Time 12:20 -Correct Patient Yes -Correct Side, Site, Position Yes -Correct Procedure Yes -Procedure Performed Yes -Type of Procedure Debridement -Clinical Debridement Subcutaneous -Tissue Removed Subcutaneous -Post Debridement (cm) - Length 1.3 -Post Debridement (cm) - Width 1.2 -Post Debridement (cm) - Depth 0.1 -Total Square (Post) (cm) 1.56 -Area of Debridement (cm) - Length 1.3 -Area of Debridement (cm) - Width 1.2 -Total Square (Area) (cm) 1.56 -Tunneling No -Undermining/Tunneling No -Circular Undermining No -Wound/Ulcer Outcome Not Healed -Ulcer Cleansing Rinsed/ Irrigated with Saline -Foul Odor after Cleansing No -Bioengineered Tissue No -Bleeding Controlled with Pressure -Treatment Response Procedure Tolerated Well -Offloading No -Debridement - Subq, 1st 20sq cm No Pain Scale: 0-10 Numeric Is Patient Pain Free? Yes Additional Wound Wound debrided: Left Great Toe Type of Debridement: Excisional debridement Anesthesia Used: 4% Lidocaine Solution Depth: Down to and including healthy tissue Percentage of wound debrided: 100 Instrument Used: 5mm curette and #15 blade Severity: Limited To Skin Breakdown Patient tolerated procedure: Patient tolerated procedure well Charges/Coding Visit Charges Office Visits / Consults: [id number] OV L4 New Procedures Integumentary [id number]: [id number] Ladan subq tissue 20 sq cm/< Assessment/Plan Assessment/Plan (1) Decubitus ulcer, heel, left, unstageable: CODE(S): L89.620 - Pressure ulcer of left heel, unstageable (2) Chronic ulcer of great toe of left foot: CODE(S): L97.529 - Non-pressure chronic ulcer of other part of left foot with unspecified severity (3) Diabetes mellitus with diabetic polyneuropathy: CODE(S): E11.42 - Type 2 diabetes mellitus with diabetic polyneuropathy (4) Type 2 diabetes mellitus: CODE(S): E11.9 - Type 2 diabetes mellitus without complications PLAN: Plan Debridement done as documented above, procedure was well-tolerated. Both ulcers with significant necrotic tissue and not clearly stated will. Has a very low pain threshold. Santyl for chemical debridement. Cover with moistened gauze. Change daily. Offloading very strongly recommended. Vascular studies ordered. Labs including A1c, CBC, CMP, ESR and CRP ordered. Optimal diabetes control very strongly recommended. Increased protein intake, vitamin C and zinc also discussed. Her questions were answered and she was advised to call with any further questions or concerns. Follow-up in 1 week or sooner if needed. This note was generated with [employer] software. It may contain incorrect words, spelling, and punctuation that were not noted in checking the note before signing.
[2021-09-08 11:36] VITALS: BP 131/69; PULSE 82; RESP 18; TEMP 36.3
--- NOTE | 2021-09-08 16:01 | PCM.WC.PN ---
History of Present Illness Date of Service: 09/08/21 Chief Complaint: Left heel wound, left hallux wound History of Wound: Ms. Lincoln is a transfer of care to me. Had been seen previously by a [facility] worker here in the facility. Being managed for left great toe and heel ulcerations which have been present for about a month. Great toe said to have possibly been from pressure from her shoe however no clear/known precipitating factor for her left heel. History of diabetes mellitus currently on Trulicity and insulin. Unsure of what her last A1c was. No known history of peripheral arterial disease but does have a history of venous insufficiency. Does have stigmata as well as peripheral arterial disease, no recent MARY. Currently lives in an assisted living facility. She feels well at this time, denies chills, fever, nausea or vomiting. Progress of Wound: No new concerns at this time. She states that she has been applying Santyl as recommended. Objective Data Objective Data Vital Signs: Vital Signs Temp Pulse Resp BP O2 Del Method O2 Flow Rate 97.3 F L 82 18 131/69 H Nasal Cannula 3 09/08/21 11:36 09/08/21 11:36 09/08/21 11:36 09/08/21 11:36 09/08/21 11:36 09/08/21 11:36 Oxygen Flow Rate (L/min) 3 Oxygen Delivery Method Nasal Cannula Charges/Coding Procedures Integumentary 111xxx-113xx: [id number] Ladan subq tissue 20 sq cm/< Physical Exam Const alert, oriented x3 and no apparent distress General Appearance: cooperative and comfortable HEENT normocephalic, head/scalp atraumatic and hearing grossly normal bilaterally Head and Scalp: normal to inspection Eyes EOMs intact bilaterally General Eye: normal appearance of both eyes Neck full ROM and supple General: normal visual inspection Resp normal respiratory effort and normal air movement Effort and Inspection: able to speak in complete sentences Cardio regular rate, regular rhythm, S1 normal heart sound and S2 normal heart sound GI soft to palpation and non-tender Extremity General Extremity: edema Skin Wounds: wounds noted Neuro oriented x3, CN's II-XII intact bilaterally and moves all extremities Psych mental status grossly normal, cooperative and affect normal Appearance: grossly normal Attitude: calm Debridement Note Debridement Note Wound debrided: Left heel Type of Debridement: Excisional debridement Anesthesia Used: 4% Lidocaine Solution Depth: Down to and including healthy tissue and in the subcutaneous layer Percentage of wound debrided: 100 Instrument Used: 5mm curette, #15 blade and Forceps Tissue Removed: Slough and devitalized tissue Severity: Fat Layer Exposed Amount of bleeding with debridement: Mild Bleeding Controlled with: Pressure Patient tolerated procedure: Patient tolerated procedure well Post-Debridement Measurements and Additional Note: Post-Debridement Measurements/Treatment TERRY - Nurse 1 - General Ulcer Assessment Start: 09/01/21 11:47 Freq: Status: Active Protocol: ABDULKADIR Activity Type Activity Date Activity User E-sign Co-sign Detail Recorded Client Recorded Date Recorded By Document 09/01/21 11:49 [facility] [id number] 09/01/21 11:59 [facility] Document 09/08/21 11:36 [facility] [id number] 09/08/21 11:47 BM 09/01/21 09/08/21 11:49 11:36 - Today's Visit Information Type of service Follow-up Visit Follow-up Visit (Physician/RELIABILITY MANAGER (Physician/RELIABILITY MANAGER ) ) Arrival Mode Wheelchair Wheelchair Transfer Assistance Other Other Transfer Assist (Other) STAND BY 1 standy by Patient Identification Verified (Name & Yes Yes ) Patient Requires Transmission-Based No No Precautions Finger Stick Blood Sugar(mg/dl) (if 184 indicated): Blood Sugar Stated by Patient Vital Signs Temperature (97.8 F-99.1 F) 96.8 F L 97.3 F L Temperature Source Temporal Temporal Pulse Rate (60-100) 74 82 Pulse Location Monitor Monitor Respiratory Rate (12-18) 16 18 Respiratory rate source Observation Observation Oxygen Delivery Method Nasal Cannula Nasal Cannula O2 L/MIN (L/min) 3 3 Blood Pressure (90/60-120/80) 127/56 H 131/69 H Blood Pressure Mean (mm Hg) 79 89 Source Monitor Monitor Position Sitting Sitting Blood Pressure Location Left Arm Right Arm History Since Last Visit- (Skip if this is Patient's initial visit) Have you changed medications since your No No last visit? Any new allergies or adverse reactions No No Had a fall/change in ADL's that may No No increase risk of falls Signs or symptoms of abuse and/or No No neglect since last visit Have you been in the hospital since your No No last visit? Has dressing in place as prescribed Yes Yes Has compression in place as prescribed No No Has offloadiing in place as prescribed Yes N/A Experienced any changes in pain level or No No management Left Footwear No Footwear Right Footwear Regular Shoe Regular Shoe Other Footwear NO SHOE TO LT drsg only to FOOT. DRSG ONLY left foot Pain Scale: 0-10 Numeric Is Patient Pain Free? Yes Yes WC - Nurse 1 - General Ulcer Measurement Start: 09/01/21 11:47 Freq: Status: Active Protocol: Activity Type Activity Date Activity User E-sign Co-sign Detail Recorded Client Recorded Date Recorded By Document 09/01/21 11:49 [facility] [id number] 09/01/21 11:59 BMF Document 09/08/21 11:36 [facility] [id number] 09/08/21 11:47 BMF 09/01/21 09/08/21 11:49 11:36 Wound Center Nurse 1 #2 Left Hallux -Combined with other wound No No -Current Size (cm) - Length 1 1.1 -Current Size (cm) - Width 1.3 1.6 -Current Size (cm) - Depth 0.1 0.1 -Total Square Cm 1.3 1.76 -Date of Last Picture (Recall this 09/01/21 09/08/21 field) -Photo Taken Yes Yes -Epithelialization None Present None Present -Tunneling No No -Undermining/Tunneling No No -Circular Undermining No No -Exudate Amt Small Medium -Exudate Type Serous Serosanguineous -Wound Margin Distinct, Distinct, Outline Outline Attached Attached -Granulation Amt Small (1-33%) None Present (0 %) -Granulation Quality Red -Slough/Fibrin Yes Yes -Necrosis Amt Large (67-100%) Large (67-100%) -Necrotic Tissue Type Eschar Adherent Slough -Texture (Julianna-wound Skin Appearance) Assessed, Assessed, Scarring Localized Edema ,Scarring -Moisture (Julianna-wound Skin Appearance) Assessed,Dry/ Assessed Scaly -Color (Julianna-wound Skin Appearance) Assessed Assessed, Erythema -Temperature (Julianna-wound Skin No Abnormality No Abnormality Appearance) (Pt Warm) (Pt Warm) -Tenderness on Palpation (Julianna-wound No Yes Skin Appearance) -Ulcer Cleansing Soap and Water Rinsed/ Irrigated with Saline -Foul Odor after Cleansing No No -Anesthetic Used 4% Lidocaine 5% Lidocaine Solution Gel #1 Left heel -Combined with other wound No No -Current Size (cm) - Length 1.3 1 -Current Size (cm) - Width 1 1 -Current Size (cm) - Depth 0.1 0.1 -Total Square Cm 1.3 1 -Date of Last Picture (Recall this 09/01/21 09/08/21 field) -Photo Taken Yes Yes -Epithelialization None Present None Present -Tunneling No No -Undermining/Tunneling No No -Circular Undermining No No -Exudate Amt None Present Small -Exudate Type Serosanguineous -Wound Margin Distinct, Distinct, Outline Outline Attached Attached -Granulation Amt None Present (0 None Present (0 %) %) -Slough/Fibrin Yes Yes -Necrosis Amt Large (67-100%) Large (67-100%) -Necrotic Tissue Type Eschar Eschar -Texture (Julianna-wound Skin Appearance) Assessed, Assessed, Fluctuance Scarring -Moisture (Julianna-wound Skin Appearance) Assessed,Dry/ Assessed,Dry/ Scaly Scaly -Color (Julianna-wound Skin Appearance) Assessed Assessed -Temperature (Julianna-wound Skin No Abnormality No Abnormality Appearance) (Pt Warm) (Pt Warm) -Tenderness on Palpation (Julianna-wound Yes No Skin Appearance) -Ulcer Cleansing Soap and Water Rinsed/ Irrigated with Saline -Foul Odor after Cleansing No No -Anesthetic Used 4% Lidocaine 5% Lidocaine Solution Gel Lower Limb Edema Present Yes Left Calf (cm) 42.7 Left Ankle (cm) 25.2 WC - Nurse 2 - General Ulcer CM Notes Start: 09/01/21 11:47 Freq: Status: Active Protocol: Activity Type Activity Date Activity User E-sign Co-sign Detail Recorded Client Recorded Date Recorded By Document 09/01/21 12:18 MW [id number] 09/01/21 12:27 MW Document 09/08/21 12:09 MW [id number] 09/08/21 12:18 MW 09/01/21 09/08/21 12:18 12:09 Wound Center Nurse 2 #2 Left Hallux -Time 12:19 12:09 -Correct Patient Yes Yes -Correct Side, Site, Position Yes Yes -Correct Procedure Yes Yes -Procedure Performed Yes Yes -Type of Procedure Debridement Debridement -Clinical Debridement Subcutaneous Subcutaneous -Tissue Removed Subcutaneous Subcutaneous -Post Debridement (cm) - Length 1.1 1.3 -Post Debridement (cm) - Width 1.4 1.6 -Post Debridement (cm) - Depth 0.1 0.1 -Total Square (Post) (cm) 1.54 2.08 -Area of Debridement (cm) - Length 1.1 1.3 -Area of Debridement (cm) - Width 1.4 1.6 -Total Square (Area) (cm) 1.54 2.08 -Tunneling No No -Undermining/Tunneling No No -Circular Undermining No No -Wound/Ulcer Outcome Not Healed Not Healed -Ulcer Cleansing Rinsed/ Rinsed/ Irrigated with Irrigated with Saline Saline -Foul Odor after Cleansing No No -Bioengineered Tissue No No -Bleeding Controlled with Pressure Pressure -Treatment Response Procedure Procedure Tolerated Well Tolerated Well -Offloading No No -Debridement - Subq, 1st 20sq cm Yes Yes #1 Left heel -Time 12:20 12:09 -Correct Patient Yes Yes -Correct Side, Site, Position Yes Yes -Correct Procedure Yes Yes -Procedure Performed Yes Yes -Type of Procedure Debridement Debridement -Clinical Debridement Subcutaneous Subcutaneous -Tissue Removed Subcutaneous Subcutaneous -Post Debridement (cm) - Length 1.3 1.0 -Post Debridement (cm) - Width 1.2 1.3 -Post Debridement (cm) - Depth 0.1 0.3 -Total Square (Post) (cm) 1.56 1.30 -Area of Debridement (cm) - Length 1.3 1.0 -Area of Debridement (cm) - Width 1.2 1.3 -Total Square (Area) (cm) 1.56 1.30 -Tunneling No No -Undermining/Tunneling No No -Circular Undermining No No -Wound/Ulcer Outcome Not Healed Not Healed -Ulcer Cleansing Rinsed/ Rinsed/ Irrigated with Irrigated with Saline Saline -Foul Odor after Cleansing No No -Bioengineered Tissue No No -Bleeding Controlled with Pressure Pressure -Treatment Response Procedure Procedure Tolerated Well Tolerated Well -Offloading No No -Debridement - Subq, 1st 20sq cm No No Pain Scale: 0-10 Numeric Is Patient Pain Free? Yes Yes - Nurse 3 - General Ulcer D/C NN Start: 09/01/21 11:47 Freq: Status: Active Protocol: Activity Type Activity Date Activity User E-sign Co-sign Detail Recorded Client Recorded Date Recorded By Document 09/08/21 12:24 [facility] [id number] 09/08/21 12:27 [facility] 09/08/21 12:24 Wound Care Nurse 3 #2 Left Hallux -Ulcer Cleansing Rinsed/ Irrigated with Saline -Foul Odor after Cleansing No -Primary Dressing Applied NonAdherent Contact Layer, Other -Other Dressing hydrogel -Primary Dressing Covered/Secured with Dry Gauze, Secured with Tape -Other Covering drsg per dl electrophysiology scientist #1 Left heel -Ulcer Cleansing Rinsed/ Irrigated with Saline -Foul Odor after Cleansing No -Primary Dressing Applied NonAdherent Contact Layer, Other -Other Dressing hydrogel -Primary Dressing Covered/Secured with Dry Gauze & Roll Gauze, Secured with Tape -Other Covering drsg per dl electrophysiology scientist Treatment Response Procedure Tolerated Well Pain Scale: 0-10 Numeric Is Patient Pain Free? Yes WC - Visit Discharge Discharge Condition Stable Ambulatory Status Wheelchair Other [facility] Additional Wound Wound debrided: Left great toe Type of Debridement: Excisional debridement Anesthesia Used: 4% Lidocaine Solution Depth: Down to and including healthy tissue and in the subcutaneous layer Percentage of wound debrided: 100 Instrument Used: 5mm curette Tissue Removed: Slough and devitalized tissue Severity: Fat Layer Exposed Amount of bleeding with debridement: Mild Bleeding Controlled with: Pressure Patient tolerated procedure: Patient tolerated procedure well Assessment/Plan Assessment/Plan (1) Decubitus ulcer of left heel, stage 3: CODE(S): L89.623 - Pressure ulcer of left heel, stage 3 (2) Chronic ulcer of great toe of left foot: CODE(S): L97.529 - Non-pressure chronic ulcer of other part of left foot with unspecified severity (3) Diabetes mellitus with diabetic polyneuropathy: CODE(S): E11.42 - Type 2 diabetes mellitus with diabetic polyneuropathy (4) Type 2 diabetes mellitus: CODE(S): E11.9 - Type 2 diabetes mellitus without complications (5) Decubitus ulcer, heel, left, unstageable: CODE(S): L89.620 - Pressure ulcer of left heel, unstageable PLAN: Plan Debridement done as documented above, procedure was well-tolerated. Left heel now unstageable. Continue Santyl for chemical debridement. Cover with moistened gauze. Change daily. Offloading very strongly recommended. Vascular studies ordered, still pending. Labs including A1c, CBC, CMP, ESR and CRP ordered at her last visit however we do not have the report yet.. Optimal diabetes control very strongly recommended. Increased protein intake, vitamin C and zinc also discussed. Her questions were answered and she was advised to call with any further questions or concerns. Follow-up in 1 week or sooner if needed. This note was generated with [employer] dictation software. It may contain incorrect words, spelling, and punctuation that were not noted in checking the note before signing.
[2021-09-12 10:47] VITALS: RESP 22; TEMP 36.3
--- NOTE | 2021-09-12 12:12 | PCM.WC.PN ---
History of Present Illness Date of Service: 09/12/21 Chief Complaint: Left heel wound, left hallux wound History of Wound: Ms. Lincoln is a transfer of care to me. Had been seen previously by a addiction nurse here in the facility. Being managed for left great toe and heel ulcerations which have been present for about a month. Great toe said to have possibly been from pressure from her shoe however no clear/known precipitating factor for her left heel. History of diabetes mellitus currently on Trulicity and insulin. Unsure of what her last A1c was. No known history of peripheral arterial disease but does have a history of venous insufficiency. Does have stigmata as well as peripheral arterial disease, no recent MARY. Currently lives in an assisted living facility. She feels well at this time, denies chills, fever, nausea or vomiting. Progress of Wound: This a courtesy visit due to Dr. Ghosh being out of town this week. She went to the ED yesterday, 09/11/21 due to severe pain in the left foot ulcers. She was started on Keflex for cellulitis and Hydrocodone/acetaminophen (10 tabs) for pain. 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 Soft tissue swelling of the first toe. Her left first toe ulcer is stable, there continues to be huang non viable tissue present. Her toe is very erythematous surrounding her ulcer. Her left heel ulcer also has huang non viable tissue present. Julianna wound is stable. She states she continues to have a lot of pain in her left foot, especially where the left first toe ulcer is located. Objective Data Objective Data Vital Signs: Vital Signs Temp Pulse Resp BP O2 Del Method O2 Flow Rate 97.3 F L 82 22 H 131/69 H Nasal Cannula 3 09/12/21 10:47 09/08/21 11:36 09/12/21 10:47 09/08/21 11:36 09/08/21 11:36 09/08/21 11:36 Oxygen Flow Rate (L/min) 3 Oxygen Delivery Method Nasal Cannula Charges/Coding Procedures Integumentary [id number]: [id number] Ladan subq tissue 20 sq cm/< Physical Exam Const alert General Appearance: cooperative and well developed Lymph Lymphatic: Negative for no lymphedema noted Resp normal respiratory effort and clear to auscultation bilaterally Cardio regular rate and regular rhythm Extremity normal capillary refill Extremity Narrative: Left foot has +1 edema. Skin Skin Narrative: Her left first toe ulcer is stable, there continues to be huang non viable tissue present. Her toe is very erythematous surrounding her ulcer. Her left heel ulcer also has huang non viable tissue present. Julianna wound is stable. She states she continues to have a lot of pain in her left foot, especially where the left first toe ulcer is located. Neuro Speech: speech normal Psych Appearance: grossly normal Debridement Note Debridement Note Wound debrided: First toe ulcer Laterality: Left Type of Debridement: Excisional debridement Anesthesia Used: 5% Lidocaine Gel Depth: Down to and including healthy tissue and in the subcutaneous layer Percentage of wound debrided: 100 Instrument Used: 5mm curette Tissue Removed: Non viable tissue and slough Severity: Fat Layer Exposed Amount of bleeding with debridement: None Bleeding Controlled with: Pressure Patient tolerated procedure: Patient did not tolerate procedure well Debridement Free Text: There continues to be significant amount of huang non viable tissue in place that is very difficulty to remove. It is also painful for the patient to have debrided. Post-Debridement Measurements and Additional Note: Post-Debridement Measurements/Treatment - Nurse 1 - General Ulcer Assessment Start: 09/01/21 11:47 Freq: Status: Active Protocol: ABDULKADIR Activity Type Activity Date Activity User E-sign Co-sign Detail Recorded Client Recorded Date Recorded By Document 09/01/21 11:49 [facility] [id number] 09/01/21 11:59 [facility] Document 09/08/21 11:36 [facility] [id number] 09/08/21 11:47 [facility] Document 09/12/21 10:47 DL [id number] 09/12/21 10:54 DL 09/01/21 09/08/21 09/12/21 11:49 11:36 10:47 - Today's Visit Information Type of service Follow-up Visit Follow-up Visit Follow-up Visit (Physician/ELECTRICAL SOLDERER (Physician/ELECTRICAL SOLDERER (Physician/ELECTRICAL SOLDERER ) ) ) Arrival Mode Wheelchair Wheelchair Wheelchair Transfer Assistance Other Other Manual Transfer Assist (Other) STAND BY 1 standy by x1 Patient Identification Verified (Name & Yes Yes Yes ) Patient Requires Transmission-Based No No No Precautions Finger Stick Blood Sugar(mg/dl) (if 184 164 indicated): Blood Sugar Stated by Stated by Patient Patient Vital Signs Temperature (97.8 F-99.1 F) 96.8 F L 97.3 F L 97.3 F L Temperature Source Temporal Temporal Temporal Pulse Rate (60-100) 74 82 Pulse Location Monitor Monitor Respiratory Rate (12-18) 16 18 22 H Respiratory rate source Observation Observation Observation Oxygen Delivery Method Nasal Cannula Nasal Cannula O2 L/MIN (L/min) 3 3 Blood Pressure (90/60-120/80) 127/56 H 131/69 H Blood Pressure Mean (mm Hg) 79 89 Source Monitor Monitor Position Sitting Sitting Blood Pressure Location Left Arm Right Arm History Since Last Visit- (Skip if this is Patient's initial visit) Have you changed medications since your No No No last visit? Any new allergies or adverse reactions No No No Had a fall/change in ADL's that may No No No increase risk of falls Signs or symptoms of abuse and/or No No No neglect since last visit Have you been in the hospital since your No No Yes last visit? Has dressing in place as prescribed Yes Yes Yes Has compression in place as prescribed No No Yes Has offloadiing in place as prescribed Yes N/A Yes Experienced any changes in pain level or No No No management Left Footwear No Footwear No Footwear Right Footwear Regular Shoe Regular Shoe Other Footwear NO SHOE TO LT drsg only to FOOT. DRSG ONLY left foot Pain Scale: 0-10 Numeric Is Patient Pain Free? Yes Yes Yes WC - Nurse 1 - General Ulcer Measurement Start: 09/01/21 11:47 Freq: Status: Active Protocol: Activity Type Activity Date Activity User E-sign Co-sign Detail Recorded Client Recorded Date Recorded By Document 09/01/21 11:49 [facility] [id number] 09/01/21 11:59 BM Document 09/08/21 11:36 BMF [id number] 09/08/21 11:47 BMF Document 09/12/21 10:47 DL [id number] 09/12/21 10:54 DL 09/01/21 09/08/21 09/12/21 11:49 11:36 10:47 Wound Center Nurse 1 #2 Left Hallux -Combined with other wound No No -Current Size (cm) - Length 1 1.1 1.5 -Current Size (cm) - Width 1.3 1.6 1.7 -Current Size (cm) - Depth 0.1 0.1 0.1 -Total Square Cm 1.3 1.76 2.55 -Date of Last Picture (Recall this 09/01/21 09/08/21 field) -Photo Taken Yes Yes No -Epithelialization None Present None Present -Tunneling No No -Undermining/Tunneling No No -Circular Undermining No No -Exudate Amt Small Medium Medium -Exudate Type Serous Serosanguineous Serosanguineous -Wound Margin Distinct, Distinct, Distinct, Outline Outline Outline Attached Attached Attached -Granulation Amt Small (1-33%) None Present (0 None Present (0 %) %) -Granulation Quality Red -Slough/Fibrin Yes Yes -Necrosis Amt Large (67-100%) Large (67-100%) Large (67-100%) -Necrotic Tissue Type Eschar Adherent Slough Adherent Slough -Structure Exposed N/A -Texture (Julianna-wound Skin Appearance) Assessed, Assessed, Localized Edema Scarring Localized Edema ,Scarring ,Scarring -Moisture (Julianna-wound Skin Appearance) Assessed,Dry/ Assessed Maceration Scaly -Color (Julianna-wound Skin Appearance) Assessed Assessed, Erythema Erythema -Temperature (Julianna-wound Skin No Abnormality No Abnormality No Abnormality Appearance) (Pt Warm) (Pt Warm) (Pt Warm) -Tenderness on Palpation (Julianna-wound No Yes No Skin Appearance) -Ulcer Cleansing Soap and Water Rinsed/ Soap and Water Irrigated with Saline -Foul Odor after Cleansing No No No -Anesthetic Used 4% Lidocaine 5% Lidocaine 5% Lidocaine Solution Gel Gel #1 Left heel -Combined with other wound No No -Current Size (cm) - Length 1.3 1 1 -Current Size (cm) - Width 1 1 1.8 -Current Size (cm) - Depth 0.1 0.1 0.1 -Total Square Cm 1.3 1 1.8 -Date of Last Picture (Recall this 09/01/21 09/08/21 field) -Photo Taken Yes Yes No -Epithelialization None Present None Present -Tunneling No No -Undermining/Tunneling No No -Circular Undermining No No -Exudate Amt None Present Small Medium -Exudate Type Serosanguineous Serosanguineous -Wound Margin Distinct, Distinct, Distinct, Outline Outline Outline Attached Attached Attached -Granulation Amt None Present (0 None Present (0 None Present (0 %) %) %) -Slough/Fibrin Yes Yes -Necrosis Amt Large (67-100%) Large (67-100%) Large (67-100%) -Necrotic Tissue Type Eschar Eschar Adherent Slough -Structure Exposed N/A -Texture (Julianna-wound Skin Appearance) Assessed, Assessed, Localized Edema Fluctuance Scarring ,Scarring -Moisture (Julianna-wound Skin Appearance) Assessed,Dry/ Assessed,Dry/ Maceration Scaly Scaly -Color (Julianna-wound Skin Appearance) Assessed Assessed Erythema -Temperature (Julianna-wound Skin No Abnormality No Abnormality Appearance) (Pt Warm) (Pt Warm) -Tenderness on Palpation (Julianna-wound Yes No Skin Appearance) -Ulcer Cleansing Soap and Water Rinsed/ Soap and Water Irrigated with Saline -Foul Odor after Cleansing No No No -Anesthetic Used 4% Lidocaine 5% Lidocaine 5% Lidocaine Solution Gel Gel Lower Limb Edema Present Yes Left Calf (cm) 42.7 Left Ankle (cm) 25.2 WC - Nurse 2 - General Ulcer CM Notes Start: 09/01/21 11:47 Freq: Status: Active Protocol: Activity Type Activity Date Activity User E-sign Co-sign Detail Recorded Client Recorded Date Recorded By Document 09/01/21 12:18 [id number] 09/01/21 12:27 MW Document 09/08/21 12:09 [id number] 09/08/21 12:18 Document 09/12/21 11:20 [id number] 09/12/21 11:22 09/01/21 09/08/21 09/12/21 12:18 12:09 11:20 Wound Center Nurse 2 #2 Left Hallux -Time 12:19 12:09 11:20 -Correct Patient Yes Yes Yes -Correct Side, Site, Position Yes Yes Yes -Correct Procedure Yes Yes Yes -Procedure Performed Yes Yes Yes -Type of Procedure Debridement Debridement Debridement -Clinical Debridement Subcutaneous Subcutaneous Subcutaneous -Tissue Removed Subcutaneous Subcutaneous Subcutaneous -Post Debridement (cm) - Length 1.1 1.3 1.5 -Post Debridement (cm) - Width 1.4 1.6 1.7 -Post Debridement (cm) - Depth 0.1 0.1 0.1 -Total Square (Post) (cm) 1.54 2.08 2.55 -Area of Debridement (cm) - Length 1.1 1.3 1.5 -Area of Debridement (cm) - Width 1.4 1.6 1.7 -Total Square (Area) (cm) 1.54 2.08 2.55 -Tunneling No No No -Undermining/Tunneling No No No -Circular Undermining No No No -Wound/Ulcer Outcome Not Healed Not Healed Not Healed -Ulcer Cleansing Rinsed/ Rinsed/ Rinsed/ Irrigated with Irrigated with Irrigated with Saline Saline Saline -Foul Odor after Cleansing No No No -Bioengineered Tissue No No No -Bleeding Controlled with Pressure Pressure Pressure -Treatment Response Procedure Procedure Procedure Tolerated Well Tolerated Well Tolerated Well -Offloading No No Yes -Type of Offloading Surgical Shoe -Debridement - Subq, 1st 20sq cm Yes Yes Yes #1 Left heel -Time 12:20 12:09 11:21 -Correct Patient Yes Yes Yes -Correct Side, Site, Position Yes Yes Yes -Correct Procedure Yes Yes Yes -Procedure Performed Yes Yes Yes -Type of Procedure Debridement Debridement Debridement -Clinical Debridement Subcutaneous Subcutaneous Subcutaneous -Tissue Removed Subcutaneous Subcutaneous Subcutaneous -Post Debridement (cm) - Length 1.3 1.0 1.8 -Post Debridement (cm) - Width 1.2 1.3 1.5 -Post Debridement (cm) - Depth 0.1 0.3 0.3 -Total Square (Post) (cm) 1.56 1.30 2.70 -Area of Debridement (cm) - Length 1.3 1.0 1.8 -Area of Debridement (cm) - Width 1.2 1.3 0.5 -Total Square (Area) (cm) 1.56 1.30 0.90 -Tunneling No No No -Undermining/Tunneling No No No -Circular Undermining No No No -Wound/Ulcer Outcome Not Healed Not Healed Not Healed -Ulcer Cleansing Rinsed/ Rinsed/ Rinsed/ Irrigated with Irrigated with Irrigated with Saline Saline Saline -Foul Odor after Cleansing No No No -Bioengineered Tissue No No No -Bleeding Controlled with Pressure Pressure Pressure -Treatment Response Procedure Procedure Procedure Tolerated Well Tolerated Well Tolerated Well -Offloading No No Yes -Type of Offloading Surgical Shoe -Assistive Device(s) Wheelchair -Debridement - Subq, 1st 20sq cm No No No Pain Scale: 0-10 Numeric Is Patient Pain Free? Yes Yes Yes - Nurse 3 - General Ulcer D/C NN Start: 09/01/21 11:47 Freq: Status: Active Protocol: Activity Type Activity Date Activity User E-sign Co-sign Detail Recorded Client Recorded Date Recorded By Document 09/08/21 12:24 BM [id number] 09/08/21 12:27 BM Document 09/12/21 11:35 KR [id number] 09/12/21 11:36 KR 09/08/21 09/12/21 12:24 11:35 Wound Care Nurse 3 #2 Left Hallux -Ulcer Cleansing Rinsed/ Rinsed/ Irrigated with Irrigated with Saline Saline -Foul Odor after Cleansing No -Primary Dressing Applied NonAdherent C Hydrogel ($) Contact Layer, Other -Other Dressing hydrogel -Primary Dressing Covered/Secured with Dry Gauze, Dry Gauze, Secured with Secured with Tape Tape -Other Covering drsg per dl computer networking instructor adjunct #1 Left heel -Ulcer Cleansing Rinsed/ Rinsed/ Irrigated with Irrigated with Saline Saline -Foul Odor after Cleansing No -Primary Dressing Applied NonAdherent C Hydrogel ($) Contact Layer, Other -Other Dressing hydrogel -Primary Dressing Covered/Secured with Dry Gauze & Dry Gauze,Dry Roll Gauze, Gauze & Roll Secured with Gauze,Secured Tape with Tape -Other Covering drsg per dl computer networking instructor adjunct Treatment Response Procedure Tolerated Well Pain Scale: 0-10 Numeric Is Patient Pain Free? Yes Yes - Visit Discharge Discharge Condition Stable Stable Ambulatory Status Wheelchair Wheelchair Transportation Private Auto Other [facility] Additional Wound Wound debrided: heel ulcer Laterality: Left Type of Debridement: Excisional debridement Anesthesia Used: 5% Lidocaine Gel Depth: Down to and including healthy tissue and in the subcutaneous layer Percentage of wound debrided: 100 Instrument Used: 3mm curette Tissue Removed: Non viable tissue and slough Severity: Fat Layer Exposed Amount of bleeding with debridement: Mild Bleeding Controlled with: Pressure Patient tolerated procedure: Patient tolerated procedure well Assessment/Plan Assessment/Plan (1) Decubitus ulcer of left heel, stage 3: CODE(S): L89.623 - Pressure ulcer of left heel, stage 3 (2) Chronic ulcer of great toe of left foot: CODE(S): L97.529 - Non-pressure chronic ulcer of other part of left foot with unspecified severity (3) Diabetes mellitus with diabetic polyneuropathy: CODE(S): E11.42 - Type 2 diabetes mellitus with diabetic polyneuropathy (4) Type 2 diabetes mellitus: CODE(S): E11.9 - Type 2 diabetes mellitus without complications (5) Cellulitis: CODE(S): L03.90 - Cellulitis, unspecified PLAN: Plan Wound care - Continue Santyl nickel thickness for chemical debridement covered with dry gauze. No adaptic over gauze and use a nurses hat over the heel for a dressing. Obtained a wound culture to the left toe ulcer today, 09/13/21 due to the severity of the redness and swelling of her left first toe and the amount of pain that she is experiencing. She has not started the Keflex that she was ordered yesterday in the ED. Depending on the results of the wound cultures, it may necessitate the need to change the prescribed antibiotics that she is going to start taking. Increase protein intake and Vitamin C intake to 500 mg BID. Follow-up in [address] Ghosh or sooner if needed.
== END 2021-09-25 23:59 | disposition home or self-care (01) ==
LOC: WC 10:45
PROVIDERS: PCP Nurse Practitioner Adult Health; Visit Provider Internal Medicine
DX: L89.623 Pressure ulcer of left heel, stage 3 (principal); E11.621 Type 2 diabetes mellitus with foot ulcer; E11.51 Type 2 diabetes mellitus with diabetic peripheral angiopathy without gangrene; L97.522 Non-pressure chronic ulcer of other part of left foot with fat layer exposed; J44.9 Chronic obstructive pulmonary disease, unspecified; I50.32 Chronic diastolic (congestive) heart failure; I11.0 Hypertensive heart disease with heart failure; I27.21 Secondary pulmonary arterial hypertension; E11.42 Type 2 diabetes mellitus with diabetic polyneuropathy; Z79.4 Long term (current) use of insulin; M19.072 Primary osteoarthritis, left ankle and foot; I25.10 Atherosclerotic heart disease of native coronary artery without angina pectoris; M20.12 Hallux valgus (acquired), left foot; E78.5 Hyperlipidemia, unspecified; E03.9 Hypothyroidism, unspecified; G47.33 Obstructive sleep apnea (adult) (pediatric); E66.9 Obesity, unspecified; I25.2 Old myocardial infarction; Z79.82 Long term (current) use of aspirin; Z79.890 Hormone replacement therapy; Z79.899 Other long term (current) drug therapy; Z87.891 Personal history of nicotine dependence
CPT/HCPCS: 11042; 87070; 87075; 87077; 87186; 87205

== ENCOUNTER 2021-09-17 18:47 | Emergency (ER) | payer MEDICARE, MEDICAID, SELFPAY ==
[2021-09-17 18:48] VITALS: BP 164/107; PULSE 102; RESP 18; TEMP 36.8; O2SAT 94; BMI 41.5
--- NOTE | 2021-09-17 19:22 | EDS_ITS ---
HPI History of Present Illness Chief Complaint: Lower Extremity Injury Detail of Chief Complaint: foot wounds Informant: patient Onset/Context/Timing Onset: Month(s) (2) Context: Gradual Onset Timing: Continuous Quality of Pain: Throbbing Location: mostly L great toe; also L heel wound Current Severity: Severe Maximum Severity: Severe Worsened by: palpation, movement, trying to walk Relieved by: nothing; tramadol not helping Associated Symptoms Associated Symptoms: Positive for Parasthesia (chronic due to neuropathy, unchanged); Negative for Weakness or Loss of Funtion Narrative Narrative: Patient is in assisted living, seeing the wound center for wounds on her left foot, states that for the past month the pain has been gradually ramping up in these areas and has been severe to the point now where she cannot sleep and they have only been giving me tramadol and it is not helping. She has been nauseated today. She denies any fevers or chills or any other new symptoms. She states the last time she had a debrided was about 2 weeks ago, they told her it was infected, she has been on antibiotics for about that period of time. She feels like it is looking more red and swollen and infected, mostly at the great toe. [facility] Medical History Acute cervical myofascial strain Acute on chronic respiratory failure with hypoxemia Asthma Atherosclerotic heart disease of [place] coronary artery without angina pectoris Chronic heart failure with preserved ejection fraction (HFpEF) Chronic ulcer of great toe of left foot Closed head injury COPD (chronic obstructive pulmonary disease) Decubitus ulcer of left heel, stage 3 Decubitus ulcer, heel, left, unstageable Depression Diabetes type 2, controlled Essential hypertension Former smoker History of non-ST elevation myocardial infarction (NSTEMI) (02/24/17) Hyperlipidemia Hypothyroid Non-rheumatic tricuspid valve insufficiency Nonrheumatic mitral (valve) insufficiency Obesity Obstructive sleep apnea On home O2 Secondary pulmonary arterial hypertension Type 2 diabetes mellitus Home Medications bupropion HCl 300 mg 24 hr tablet, extended release 300 mg PO DAILY Check with primary doctor 09/02/20 [History Last Taken 09/02/20] cholecalciferol (vitamin D3) 50 mcg (2,000 unit) capsule (Vitamin D3) 50 mcg PO DAILY supplement 09/02/20 [History Last Taken 09/02/20] fluticasone furoate 100 mcg-vilanterol 25 mcg/dose inhalation powder (Breo Ellipta) 1 inh inhalation DAILY breathing 09/02/20 [History Last Taken 09/02/20] fluticasone propionate 50 mcg/actuation nasal spray,suspension 1 spray intran katie DAILY Check with primary doctor 09/02/20 [History Last Taken 09/02/20] furosemide 80 mg tablet 80 mg PO DAILY water pill 09/02/20 [History Last Taken 09/02/20] levothyroxine 88 mcg tablet 88 mcg PO DAILY thyroid 09/02/20 [History Last Taken 09/02/20] lorazepam 1 mg tablet 1 mg PO QHS anxiety 09/02/20 [History Last Taken 09/01/20] montelukast 10 mg tablet 10 mg PO DAILY Check with primary doctor 09/02/20 [History Last Taken 09/02/20] trazodone 100 mg tablet 100 mg PO QHS sleep 09/02/20 [History Last Taken 09/01/20] carvedilol 6.25 mg tablet 6.25 mg PO BID #60 tabs 01/06/21 [Rx Last Taken U nknown] atorvastatin 80 mg tablet 80 mg PO QHS #30 tabs 04/08/21 [Rx Last Taken Unknown] aspirin 81 mg tablet,delayed release (Adult Aspirin Regimen) 81 mg PO DAILY 05/17/21 [History Last Taken Unknown] amlodipine 10 mg tablet 10 mg PO DAILY 08/25/21 [History Last Taken Unknown] gabapentin 100 mg capsule (Neurontin) 100 mg PO TID 08/25/21 [History Last Taken Unknown] dulaglutide 0.75 mg/0.5 mL subcutaneous pen injector (Trulicity) 0.75 mg subcut QWEEK 09/02/21 [History Last Taken Unknown] insulin detemir U-100 100 unit/mL (3 mL) subcutaneous pen 37 unit subcut QHS blood sugar 09/02/21 [History Last Taken Unknown] insulin lispro 100 unit/mL subcutaneous pen See Protocol subcut QACHS blood sugar 09/02/21 [History Last Taken Unknown] ipratropium 0.5 mg-albuterol 3 mg (2.5 mg base)/3 mL nebulization soln 3 ml inhalation BID breathing tx 09/02/21 [History Last Taken Unknown] meloxicam 7.5 mg tablet 7.5 mg PO DAILY 09/02/21 [History Last Taken Unknown] paroxetine HCl 30 mg tablet 60 mg PO QHS mental health 09/02/21 [History Last Taken Unknown] cephalexin 500 mg capsule 500 mg PO Q6 #40 caps 09/11/21 [Rx Last Taken Unknown] hydrocodone-acetaminophen 5-325mg 5mg-325mg 1 tab PO Q6H PRN pain 3 days #10 tabs 09/11/21 [Rx Last Taken Unknown] Allergy/AdvReac Type Severity Reaction Status Date / Time Sulfa (Sulfonamide Allergy Anaphylaxis Verified 09/11/21 08:14 Antibiotics) sulfur dioxide Allergy Anaphylaxis Verified 09/11/21 08:14 Family History Grandmother Diabetes Mother Heart disease Surgical History H/O right heart catheterization History of cataract surgery History of coronary artery stent placement (02/24/17) Tubal ligation status Social History Smoking Status: Former smoker how long ago did patient quit smokin alcohol intake: former year quit: 1999 substance use type: does not use caffeine: Yes Type: carbonated beverages and tea ROS ROS ED Constitutional Constitutional ED: Denies chills or fever(s) Eyes Eyes: Denies change in vision or diplopia ENT ENT ED: Denies rhinorrhea or sore throat Cardiovascular Cardiovascular: Denies chest pain or palpitations Respiratory/Chest Respiratory/Chest: Denies cough or dyspnea Gastrointestinal Gastrointestinal: Reports nausea; Denies abdominal pain, diarrhea or vomiting Genitourinary Genitourinary ED: Denies dysuria or hematuria Musculoskeletal Musculoskeletal: Reports extremity pain; Denies back pain or neck pain Integumentary Denies abscess or rash Neurologic Neurologic: Reports paresthesias; Denies headache(s) or weakness Psychiatric Psychiatric: Denies anxiety or suicidal thoughts EXAM Physical Exam Const Vital Signs: 09/17/21 18:48 09/17/21 21:25 09/17/21 21:28 Temperature 98.2 F Temperature Source Oral Pulse Rate 102 H 105 H 128 H Respiratory Rate 18 20 H 25 H Respiratory Pattern Tachypnea Blood Pressure 164/107 H 173/74 H Blood Pressure Mean 126 107 Pulse Ox 94 96 Oxygen Delivery Method Room Air Nasal Cannula Oxygen Flow Rate (L/min) 5 09/17/21 21:39 Temperature Temperature Source Pulse Rate 100 Respiratory Rate 20 H Respiratory Pattern Blood Pressure 168/71 H Blood Pressure Mean 103 Pulse Ox 99 Oxygen Delivery Method Nasal Cannula Oxygen Flow Rate (L/min) 3 Positive well nourished, well developed and obese General Appearance ED: well developed and NAD Nutritional Appearance: obese HEENT Reports moist mucous membranes normocephalic and atraumatic Eyes PERRL and EOMs intact bilaterally Neck full ROM and supple Resp normal respiratory effort and clear to auscultation bilaterally Cardio regular rate and regular rhythm Cardio Narrative: soft ABRIL GI non-tender and non-distended Auscultation: normoactive bowel sounds Palpation: soft Back/Spine no CVA tenderness General Back: other FROM Extremity Extremity Narrative: Ulcerated wound at the tibial aspect of the left great toe, around the IPJ, surrounding erythema and swelling, no expressible discharge, no palpable abscess, extremely tender. Nail intact. There is a more superficial smaller ulcerative wound at the dependent aspect of the heel that is also tender but less so and without as much erythema, no expressible discharge but it is tender. General Extremety ED: Yes tenderness; Negative for edema or pulses abnormal General Extremity: Negative for edema or pulses abnormal Neuro oriented x3, CN's II-XII intact bilaterally and no sensory deficits noted Sensorium / Orientation: awake and alert Motor Exam: strength 5/5 throughout Skin no rashes or lesions noted Skin Narrative: See above for wound description left foot. No lymphangitis or cellulitis that extends proximal to the foot MDM MDM MDM Narrative Medical decision making narrative: Work the patient up with labs and an x-ray, on my interpretation 3 views of the left foot show no acute abnormality, radiology in agreement that there is no destructive bony process. She does not have leukocytosis, her ESR and CRP are noted and elevated, this is nonspecific. I discussed the case with Dr. Milligan who was on for podiatry, and we discussed her recent culture results from about 5 days ago. They show Proteus mirabilis and Staph aureus, no indication of MRSA at this time, there is very little antibiotic resistance with these particular cultures. At this time her recommendation would be to irrigate the wound and reculture the wound bed, and discharge her back with close outpatient follow-up, she appears to be on cephalexin which the is are both most likely sensitive to although the [facility] was not necessarily tested for this, and she will follow- up with podiatry/wound center. Prior to discharge, the patient walked about 10 feet to and from the restroom and she was very winded and wheezy when she got back, oxygen saturations were 78% on her 2.5 L. We had respiratory come stat to give her a duo nebulizer treatment followed by an albuterol, and she felt much better after that with oxygen saturation now at 94-96% on her home oxygen. She states she does get aerosol treatments [id number] for her COPD and she is comfortable going back home. She asked for something else for pain so we gave another dose of medication. Lab Data Attestation: I reviewed the patient's lab results. Labs: Laboratory Results - last 24 hr 09/17/21 09/17/21 19:30 19:30 WBC 9.5 RBC 2.77 L Hgb 8.2 L Hct 26.3 L MCV 94.9 MCH 29.6 MCHC 31.2 L RDW Std Deviation 50.1 H RDW Coeff of [place]agen 14.6 Plt Count 190 MPV 10.2 Immature Gran % (Auto) 0.400 Neut % (Auto) 75.3 H Lymph % (Auto) 13.4 L [place] % (Auto) 7.2 Eos % (Auto) 3.1 Baso % (Auto) 0.6 Absolute Neuts (auto) 7.1 Absolute Lymphs (auto) 1.27 Nucleated RBC % 0 ESR 54 H Sodium 140 Potassium 4.6 Chloride 108 H Carbon Dioxide 27.0 Anion Gap 5 BUN 46 H Creatinine 1.89 H Estim Creat Clear Calc 26.70 Est GFR (MDRD) Af Amer 34 L Est GFR (MDRD) Non-Af 28 L BUN/Creatinine Ratio 24.3 H Glucose 179 H Calcium 9.0 C-React Prot Ext Range 7.57 H Radiography Diagnostic Testing: Clinical Impression(s) from Imaging Studies Foot X-Ray 09/17/21 19:28 IMPRESSION: No destructive bony process. Nonspecific soft tissue swelling. Electronically Signed: Sameer Rojas MD ([place]) at 20:02 EDT , Discharge Plan Triage Chief Complaint: Lower Extremity Injury ED Provider: Jerzy Kimbrough Dx/Rx/DC Orders Clinical Impression: Type 2 diabetes mellitus with left diabetic foot infection, Diabetes mellitus with diabetic polyneuropathy, Decubitus ulcer of left heel, stage 2, Decubitus ulcer of dorsum of foot, stage 2, Acute foot pain, COPD (chronic obstructive pulmonary disease) Instructions: Diabetes Treating Minor Foot ... Prescriptions: No Action aspirin [Adult Aspirin Regimen] 81 mg tablet,delayed release (DR/EC) 81 mg PO DAILY Trulicity 0.75 mg/0.5 mL pen injector 0.75 mg subcut QWEEK Label Comments: 0.5 ML (0.75MG) SQ EVERYMWEEK DX:X meloxicam 7.5 mg tablet 7.5 mg PO DAILY levothyroxine 88 mcg Tablet 88 mcg PO DAILY furosemide 80 mg Tablet 80 mg PO DAILY trazodone 100 mg Tablet 100 mg PO QHS montelukast 10 mg Tablet 10 mg PO DAILY lorazepam 1 mg Tablet 1 mg PO QHS fluticasone propionate 50 mcg/actuation [place],Suspension 1 spray INTRANASAL DAILY bupropion HCl 300 mg Tablet Extended Release 24 Hr 300 mg PO DAILY cholecalciferol (vitamin D3) [Vitamin D3] 50 mcg (2,000 unit) Capsule 50 mcg PO DAILY fluticasone furoate-vilanterol [Breo Ellipta] 100-25 mcg/dose Blister With Device 1 inh INHALATION DAILY ipratropium-albuterol 0.5 mg-3 mg(2.5 mg base)/3 mL solution for nebulization 3 ml INHALATION BID insulin lispro 100 unit/mL insulin pen See Protocol SUBCUT QACHS Protocol: 6. Sliding Scale Insulin Custom Condition: 151-175 Dose/Route: 5 Condition: 176-200 Dose/Route: 7 Condition: 201-250 Dose/Route: 9 Condition: 251-300 Dose/Route: 11 Condition: 301-350 Dose/Route: 13 Condition: 351-400 Dose/Route: 15 Condition: 401-450 Dose/Route: 19 Protocol Text: Custom Sliding Scale Rx Instructions: 10 units plus sliding scale. SEE SLIDING SCALE paroxetine HCl 30 mg tablet 60 mg PO QHS insulin detemir U-100 100 unit/mL (3 mL) insulin pen 37 unit SUBCUT QHS amlodipine 10 mg Tablet 10 mg PO DAILY gabapentin [Neurontin] 100 mg Capsule 100 mg PO TID hydrocodone-acetaminophen 5-325 mg tablet 1 tab PO Q6H PRN (Reason: pain) 3 Days Qty: 10 0RF cephalexin 500 mg capsule 500 mg PO Q6 Qty: 40 0RF carvedilol 6.25 mg tablet 6.25 mg PO BID Qty: 60 11RF atorvastatin 80 mg tablet 80 mg PO QHS Qty: 30 11RF Primary Care Provider: Geovanna Mott NP Referrals: Noah No DPM [STAFF PHYSICIAN] - 3-5 Days Geovanna Mott [employer] [employer] [Primary Care Provider] - Activity Restrictions/Additional Instructions: For now continue cephalexin that you are on for this; we sent another culture of your wound which should come back in several days. Disposition Disposition: Home, Self Care
--- NOTE | 2021-09-17 19:28 | RAD_ITS ---
STUDY: X-RAY - LEFT FOOT CLINICAL: Female, 66 years old. pain/infection great toe, heel TECHNIQUE: 3 view(s) of the foot. COMPARISON: None. FINDINGS: There is an enthesophyte involving the posterior superior calcaneus at the site of insertion of the Achilles tendon. Normal visualized subtalar, talonavicular, calcaneocuboid, tarsal and tarsometatarsal articulations. Normal metatarsi. 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 Normal tibial and fibular sesamoid bones. Normal interphalangeal joint of the great toe. Normal phalanges of the great toe. Normal second through fifth metatarsophalangeal joints. Normal interphalangeal joints and phalanges of the lesser toes. Diffuse soft tissue swelling. Arterial atherosclerosis. RAD/Foot min 3 Views IMPRESSION: No destructive bony process. Nonspecific soft tissue swelling. Electronically Signed: Sameer Rojas MD ([place]) at 20:02 EDT ,
[2021-09-17] MEDS: Morphine 4 MG/ML Syringe IV ×2 (19:29→21:48)
[2021-09-17] MEDS: Ondansetron 4 MG/2 ML Vial IV (19:29)
[2021-09-17 19:44] LABS: Absolute Lymphocyte Count 1.27 X10^3/uL (0.83-4.51); Absolute Neutrophil Count 7.1 X10^3/uL (2.0-7.7); Basophil# 0.06 X10^3/uL; Basophil% 0.6 % (0-1); Eosinophil# 0.29 X10^3/uL; Eosinophils% 3.1 % (0-5); Hematocrit 26.3 % (37-47); Hemoglobin 8.2 g/dL (12.0-15.0); Lymphocyte # 1.27 X10^3/ul (0.83-4.51); Lymphocyte % 13.4 % (19-41); Mean Corp Hgb Conc 31.2 g/dL (32-36); Mean Corpuscular Hgb 29.6 pg (27.0-32.0); Mean Corpuscular Volume 94.9 fL (81-99); Mean Platelet Vol. 10.2 fl (6.2-12.0); Monocyte# 0.68 X10^3/uL; Monocyte% 7.2 % (0-10); NRBC Flagged by Analyzer 0 % (0-5); Neutrophil # 7.13 X10^3/uL (2.7-7.7); Neutrophil % 75.3 % (47-70); Platelet Count 190 K/mm3 (150-450); RBC Distribution Width CV 14.6 % (11.6-14.6); RBC Distribution Width SD 50.1 fl (35.1-43.9); Red Blood Count 2.77 M/mm3 (4.2-5.4); White Blood Count 9.5 K/mm3 (4.4-11.0)
[2021-09-17 20:01] LABS: Anion Gap 5 (5-15); BUN 46 mg/dL (7-18); BUN/Creat Ratio 24.3 RATIO (10-20); CRP 7.57 mg/L (0.0-3.0); Chloride 108 mmol/L (98-107); Creatinine, Serum 1.89 mg/dL (0.55-1.02); EST Glomerular Filtration Rate 28 mL/min (>60); Est Glom Filt Rate - Afr Amer 34 mL/min (>60); Glucose 179 mg/dL (74-106); Potassium 4.6 mmol/L (3.5-5.1); Sodium Level 140 mmol/L (136-145)
[2021-09-17 20:06] LABS: Erythrocyte Sedimentation Rate 54 mm/hr (0-30)
[2021-09-17 21:25] VITALS: BP 173/74; PULSE 105; RESP 20; O2SAT 96
[2021-09-17] MEDS: Ipratropium/Albuterol Sulfate 3 ML AMPUL.NEB INHALATION (21:27)
[2021-09-17] MEDS: Albuterol 2.5 MG/3 ML VIAL.NEB. INHALATION (21:27)
[2021-09-17 21:28] VITALS: PULSE 128; RESP 25
[2021-09-17 21:39] VITALS: BP 168/71; PULSE 100; RESP 20; O2SAT 99
--- NOTE | 2021-09-17 22:06 | ED.RN ---
THIS RN ATTEMPTED TO CALL PATIENT'S SON KAMILLE, BUT WAS NOT ABLE TO REACH HIM. PATIENT STATES SHE HAS NO WAY TO GET HOME AND CANNOT AFFORD A TAXI.
== END 2021-09-17 22:47 | disposition home or self-care (01) ==
PROVIDERS: Emergency Provider Emergency Medicine; PCP Nurse Practitioner Adult Health; Visit Provider Emergency Medicine
DX: E11.628 Type 2 diabetes mellitus with other skin complications (principal); L89.622 Pressure ulcer of left heel, stage 2; L89.892 Pressure ulcer of other site, stage 2; J44.9 Chronic obstructive pulmonary disease, unspecified; I11.0 Hypertensive heart disease with heart failure; I50.32 Chronic diastolic (congestive) heart failure; I27.21 Secondary pulmonary arterial hypertension; E11.42 Type 2 diabetes mellitus with diabetic polyneuropathy; Z79.4 Long term (current) use of insulin; I25.10 Atherosclerotic heart disease of native coronary artery without angina pectoris; E78.5 Hyperlipidemia, unspecified; E03.9 Hypothyroidism, unspecified; G47.33 Obstructive sleep apnea (adult) (pediatric); E66.9 Obesity, unspecified; I25.2 Old myocardial infarction; Z79.1 Long term (current) use of non-steroidal anti-inflammatories (NSAID); Z79.890 Hormone replacement therapy; Z79.899 Other long term (current) drug therapy; Z87.891 Personal history of nicotine dependence; Z95.5 Presence of coronary angioplasty implant and graft
CPT/HCPCS: 73630; 80048; 85025; 85652; 86140; 87070; 87077; 87186; 87205; 94640; 96374; 96375; 96376; 99285; A4216; J2405

== ENCOUNTER 2021-09-29 11:02 | Outpatient (RCR) | payer MEDICARE, MEDICAID, SELFPAY ==
[2021-09-26 00:36] VITALS: BP 131/69; PULSE 82; RESP 22; TEMP 36.3
[2021-09-29 11:18] VITALS: BP 148/46; PULSE 87; RESP 16; TEMP 36
--- NOTE | 2021-09-29 13:35 | PCM.WC.PN ---
History of Present Illness Date of Service: 09/29/21 Chief Complaint: Left heel wound, left hallux wound History of Wound: Ms. Lincoln is a transfer of care to me. Had been seen previously by a fire lookout here in the facility. Being managed for left great toe and heel ulcerations which have been present for about a month. Great toe said to have possibly been from pressure from her shoe however no clear/known precipitating factor for her left heel. History of diabetes mellitus currently on Trulicity and insulin. Unsure of what her last A1c was. No known history of peripheral arterial disease but does have a history of venous insufficiency. Does have stigmata as well as peripheral arterial disease, no recent MARY. Currently lives in an assisted living facility. She feels well at this time, denies chills, fever, nausea or vomiting. Progress of Wound: No significant change. Still reports a lot of pain. Scheduled for MARY on attempt. Objective Data Objective Data Vital Signs: Vital Signs Temp Pulse Resp BP O2 Del Method O2 Flow Rate 96.8 F L 87 16 148/46 H Nasal Cannula 3 09/29/21 11:18 09/29/21 11:18 09/29/21 11:18 09/29/21 11:18 09/29/21 11:18 09/29/21 11:18 Oxygen Flow Rate (L/min) 3 Oxygen Delivery Method Nasal Cannula Charges/Coding Procedures Integumentary [id number]-113xx: [id number] Ladan subq tissue 20 sq cm/< Physical Exam Const alert, oriented x3 and no apparent distress General Appearance: cooperative and comfortable HEENT normocephalic, head/scalp atraumatic and hearing grossly normal bilaterally Head and Scalp: normal to inspection Eyes EOMs intact bilaterally General Eye: normal appearance of both eyes Neck full ROM and supple General: normal visual inspection Resp normal respiratory effort and normal air movement Effort and Inspection: able to speak in complete sentences Cardio regular rate, regular rhythm, S1 normal heart sound and S2 normal heart sound GI soft to palpation and non-tender Extremity General Extremity: edema Skin Wounds: wounds noted Neuro oriented x3, CN's II-XII intact bilaterally and moves all extremities Psych mental status grossly normal, cooperative and affect normal Appearance: grossly normal Attitude: calm Debridement Note Debridement Note Wound debrided: Left hallux Type of Debridement: Excisional debridement Anesthesia Used: 4% Lidocaine Solution Depth: Down to and including healthy tissue and in the subcutaneous layer Percentage of wound debrided: 100 Instrument Used: 5mm curette Tissue Removed: Slough and devitalized tissue Severity: Fat Layer Exposed Amount of bleeding with debridement: Mild Bleeding Controlled with: Pressure Patient tolerated procedure: Patient tolerated procedure well Post-Debridement Measurements and Additional Note: Post-Debridement Measurements/Treatment TERRY - Nurse 1 - General Ulcer Assessment Start: 09/29/21 11:18 Freq: Status: Active Protocol: ABDULKADIR Activity Type Activity Date Activity User E-sign Co-sign Detail Recorded Client Recorded Date Recorded By Document 09/29/21 11:18 [facility] [id number] 09/29/21 11:29 [facility] 09/29/21 11:18 WC - Today's Visit Information Type of service Follow-up 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 ) Arrival Mode Wheelchair Transfer Assistance None Patient Identification Verified (Name & Yes ) Patient Requires Transmission-Based No Precautions Finger Stick Blood Sugar(mg/dl) (if 107 indicated): Blood Sugar Stated by Patient Vital Signs Temperature (97.8 F-99.1 F) 96.8 F L Temperature Source Temporal Pulse Rate (60-100) 87 Pulse Location Monitor Respiratory Rate (12-18) 16 Respiratory rate source Observation Oxygen Delivery Method Nasal Cannula O2 L/MIN (L/min) 3 Blood Pressure (90/60-120/80) 148/46 H Blood Pressure Mean (mm Hg) 80 Source Monitor Position Sitting Blood Pressure Location Left Arm History Since Last Visit- (Skip if this is Patient's initial visit) Have you changed medications since your No last visit? Any new allergies or adverse reactions No Had a fall/change in ADL's that may No increase risk of falls Signs or symptoms of abuse and/or No neglect since last visit Have you been in the hospital since your No last visit? Has dressing in place as prescribed Yes Has compression in place as prescribed N/A Has offloadiing in place as prescribed Yes Experienced any changes in pain level or No management Left Footwear No Footwear Other Footwear LEFT FOOT DRSG ONLY Pain Scale: 0-10 Numeric Is Patient Pain Free? Yes TERRY Jorgensen Nurse 1 - General Ulcer Measurement Start: 09/29/21 11:18 Freq: Status: Active Protocol: Activity Type Activity Date Activity User E-sign Co-sign Detail Recorded Client Recorded Date Recorded By Document 09/29/21 11:18 [facility] [id number] 09/29/21 11:29 [facility] 09/29/21 11:18 Wound Center Nurse 1 #2 Left Hallux -Combined with other wound No -Current Size (cm) - Length 1.8 -Current Size (cm) - Width 2 -Current Size (cm) - Depth 0.1 -Total Square Cm 3.6 -Date of Last Picture (Recall this 09/29/21 field) -Photo Taken Yes -Epithelialization None Present -Tunneling No -Undermining/Tunneling No -Circular Undermining No -Exudate Amt Small -Exudate Type Serous -Wound Margin Distinct, Outline Attached -Granulation Amt None Present (0 %) -Slough/Fibrin Yes -Necrosis Amt Large (67-100%) -Necrotic Tissue Type Eschar -Texture (Julianna-wound Skin Appearance) Assessed, Localized Edema ,Scarring -Moisture (Julianna-wound Skin Appearance) Assessed -Color (Julianna-wound Skin Appearance) Assessed, Erythema -Temperature (Julianna-wound Skin No Abnormality Appearance) (Pt Warm) -Tenderness on Palpation (Julianna-wound Yes Skin Appearance) -Ulcer Cleansing Soap and Water -Foul Odor after Cleansing No -Anesthetic Used 5% Lidocaine Gel #1 Left heel -Combined with other wound No -Current Size (cm) - Length 1.5 -Current Size (cm) - Width 1.5 -Current Size (cm) - Depth 0.1 -Total Square Cm 2.25 -Date of Last Picture (Recall this 09/29/21 field) -Photo Taken Yes -Epithelialization None Present -Tunneling No -Undermining/Tunneling No -Circular Undermining No -Exudate Amt Small -Exudate Type Serous -Wound Margin Distinct, Outline Attached -Granulation Amt None Present (0 %) -Slough/Fibrin Yes -Necrosis Amt Large (67-100%) -Necrotic Tissue Type Adherent Slough -Texture (Julianna-wound Skin Appearance) Assessed, Localized Edema ,Scarring -Moisture (Julianna-wound Skin Appearance) Assessed -Color (Julianna-wound Skin Appearance) Assessed, Erythema -Temperature (Julianna-wound Skin No Abnormality Appearance) (Pt Warm) -Tenderness on Palpation (Julianna-wound No Skin Appearance) -Ulcer Cleansing Soap and Water -Foul Odor after Cleansing No -Anesthetic Used 5% Lidocaine Gel WC - Nurse 2 - General Ulcer CM Notes Start: 09/29/21 11:18 Freq: Status: Active Protocol: Activity Type Activity Date Activity User E-sign Co-sign Detail Recorded Client Recorded Date Recorded By Document 09/29/21 12:04 VICTORIA [id number] 09/29/21 12:09 VICTORIA 09/29/21 12:04 Wound Center Nurse 2 #2 Left Hallux -Time 12:05 -Correct Patient Yes -Correct Side, Site, Position Yes -Correct Procedure Yes -Procedure Performed Yes -Type of Procedure Debridement -Clinical Debridement Subcutaneous -Tissue Removed Subcutaneous -Post Debridement (cm) - Length 2.0 -Post Debridement (cm) - Width 2 -Post Debridement (cm) - Depth 0.1 -Total Square (Post) (cm) 4.0 -Area of Debridement (cm) - Length 2.0 -Area of Debridement (cm) - Width 2.0 -Total Square (Area) (cm) 4.00 -Tunneling No -Undermining/Tunneling No -Circular Undermining No -Wound/Ulcer Outcome Not Healed -Ulcer Cleansing Rinsed/ Irrigated with Saline -Foul Odor after Cleansing No -Bioengineered Tissue No -Bleeding Controlled with Pressure -Treatment Response Procedure Tolerated Well -Offloading No -Debridement - Subq, 1st 20sq cm Yes #1 Left heel -Time 12:05 -Correct Patient Yes -Correct Side, Site, Position Yes -Correct Procedure Yes -Procedure Performed Yes -Type of Procedure Debridement -Clinical Debridement Subcutaneous -Tissue Removed Subcutaneous -Post Debridement (cm) - Length 1.5 -Post Debridement (cm) - Width 1 -Post Debridement (cm) - Depth 0.1 -Total Square (Post) (cm) 1.5 -Area of Debridement (cm) - Length 1.5 -Area of Debridement (cm) - Width 1 -Total Square (Area) (cm) 1.5 -Tunneling No -Undermining/Tunneling No -Circular Undermining No -Wound/Ulcer Outcome Not Healed -Ulcer Cleansing Rinsed/ Irrigated with Saline -Foul Odor after Cleansing No -Bioengineered Tissue No -Bleeding Controlled with Pressure -Treatment Response Procedure Tolerated Well -Offloading No -Debridement - Subq, 1st 20sq cm No Pain Scale: 0-10 Numeric Is Patient Pain Free? Yes WC - Nurse 3 - General Ulcer D/C NN Start: 09/29/21 11:18 Freq: Status: Active Protocol: Activity Type Activity Date Activity User E-sign Co-sign Detail Recorded Client Recorded Date Recorded By Document 09/29/21 12:19 [facility] [id number] 09/29/21 12:20 [facility] 09/29/21 12:19 Wound Care Nurse 3 #2 Left Hallux -Ulcer Cleansing Rinsed/ Irrigated with Saline -Foul Odor after Cleansing No -Primary Dressing Applied Other -Other Dressing HYDROGEL -Primary Dressing Covered/Secured with Dry Gauze & Roll Gauze, Secured with Tape #1 Left heel -Ulcer Cleansing Rinsed/ Irrigated with Saline -Foul Odor after Cleansing No -Primary Dressing Applied Other -Other Dressing HYDROGEL -Primary Dressing Covered/Secured with Dry Gauze & Roll Gauze, Secured with Tape -Other Covering HEEL HAT Left -Compression Wrap Kenny Wrap -Other TO SECURE DRSG Treatment Response Procedure Tolerated Well Pain Scale: 0-10 Numeric Is Patient Pain Free? Yes WC - Visit Discharge Discharge Condition Stable Ambulatory Status Wheelchair Transportation [facility] Additional Wound Wound debrided: Left heel Type of Debridement: Excisional debridement Anesthesia Used: 4% Lidocaine Solution Depth: Down to and including healthy tissue and in the subcutaneous layer Percentage of wound debrided: 100 Instrument Used: 5mm curette Tissue Removed: Slough and devitalized tissue Severity: Fat Layer Exposed Amount of bleeding with debridement: Mild Bleeding Controlled with: Pressure Patient tolerated procedure: Patient tolerated procedure well Assessment/Plan Assessment/Plan (1) Decubitus ulcer of left heel, stage 3: CODE(S): L89.623 - Pressure ulcer of left heel, stage 3 (2) Chronic ulcer of great toe of left foot: CODE(S): L97.529 - Non-pressure chronic ulcer of other part of left foot with unspecified severity (3) Diabetes mellitus with diabetic polyneuropathy: CODE(S): E11.42 - Type 2 diabetes mellitus with diabetic polyneuropathy (4) Type 2 diabetes mellitus: CODE(S): E11.9 - Type 2 diabetes mellitus without complications (5) Cellulitis: CODE(S): L03.90 - Cellulitis, unspecified PLAN: Plan Debridement done as documented above, procedure was tolerated okay. Still has a lot of pain. Still has a lot of significant dry eschar as well. I am unsure if Santyl is being applied properly. Instructions given on how to. Communication also sent to assisted living facility. Scheduled for her MARY next week, will review at her next visit. Continue Santyl with moistened gauze. Change daily. Offloading also strongly recommended. A1c not at goal, most recent labs reviewed and A1c was at 8. Optimal diabetes control strongly recommended. Her questions were answered and she was advised to call with any further questions or concerns. Follow-up in a week This note was generated with [employer] dictation software. It may contain incorrect words, spelling, and punctuation that were not noted in checking the note before signing.
== END 2021-10-26 23:59 | disposition home or self-care (01) ==
LOC: WC 11:02
PROVIDERS: PCP Nurse Practitioner Adult Health; Visit Provider Internal Medicine
DX: E11.621 Type 2 diabetes mellitus with foot ulcer (principal); L89.623 Pressure ulcer of left heel, stage 3; L97.522 Non-pressure chronic ulcer of other part of left foot with fat layer exposed; E11.42 Type 2 diabetes mellitus with diabetic polyneuropathy; Z79.4 Long term (current) use of insulin; L03.90 Cellulitis, unspecified; Z79.82 Long term (current) use of aspirin; Z79.899 Other long term (current) drug therapy; Z79.890 Hormone replacement therapy
CPT/HCPCS: 11042

== ENCOUNTER 2021-10-02 09:05 | Emergency (ER) | payer MEDICARE, MEDICAID, SELFPAY ==
[2021-10-02 09:06] VITALS: BP 152/55; PULSE 88; RESP 16; TEMP 36.2; O2SAT 100; BMI 39.6
--- NOTE | 2021-10-02 09:36 | RAD_ITS ---
STUDY: X-RAY - LEFT FOOT CLINICAL: Female, 66 years old. wound TECHNIQUE: 3 view(s) of the foot. COMPARISON: None. FINDINGS: No visualized fracture or displaced bony fragment. Mild soft tissue swelling is present around the foot. No subcutaneous gas is seen. No evidence of osteomyelitis. The bony structures are demineralized. Normal talus, calcaneus, and tarsal bones. Normal visualized subtalar, talonavicular, calcaneocuboid, tarsal and tarsometatarsal articulations. Normal metatarsi. Normal metatarsophalangeal joint of the great toe. Normal tibial and fibular sesamoid bones. Normal interphalangeal joint of the great toe. Normal phalanges of the great toe. Normal second through fifth metatarsophalangeal joints. Normal interphalangeal joints and phalanges of the lesser toes. RAD/Foot min 3 Views IMPRESSION: * No evidence of osteomyelitis. * Mild soft tissue swelling Electronically Signed: Jerome Mo MD at 10:53 EDT Reading Location ID and State: [facility] / [place] , Service support ,
--- NOTE | 2021-10-02 09:44 | EX.ED.DYSGE1 ---
HPI History of Present Illness Chief Complaint: Wound Check Narrative Narrative: Patient presents with left heel and great toe pain, she has a chronic wound on both. She has not seen podiatry yet. She arrives from an assisted living. She has no fevers or chills, she has no streaking, she has no other signs of infection. [facility] Medical History Acute cervical myofascial strain Acute on chronic respiratory failure with hypoxemia Asthma Atherosclerotic heart disease of [place] coronary artery without angina pectoris Chronic heart failure with preserved ejection fraction (HFpEF) Chronic ulcer of great toe of left foot Closed head injury COPD (chronic obstructive pulmonary disease) Decubitus ulcer of left heel, stage 3 Decubitus ulcer, heel, left, unstageable Depression Diabetes type 2, controlled Essential hypertension Former smoker History of non-ST elevation myocardial infarction (NSTEMI) (02/24/17) Hyperlipidemia Hypothyroid Non-rheumatic tricuspid valve insufficiency Nonrheumatic mitral (valve) insufficiency Obesity Obstructive sleep apnea On home O2 Secondary pulmonary arterial hypertension Type 2 diabetes mellitus Home Medications bupropion HCl 300 mg 24 hr tablet, extended release 300 mg PO DAILY Check with primary doctor 09/02/20 [History Last Taken 09/02/20] cholecalciferol (vitamin D3) 50 mcg (2,000 unit) capsule (Vitamin D3) 50 mcg PO DAILY supplement 09/02/20 [History Last Taken 09/02/20] fluticasone furoate 100 mcg-vilanterol 25 mcg/dose inhalation powder (Breo Ellipta) 1 inh inhalation DAILY breathing 09/02/20 [History Last Taken 09/02/20] fluticasone propionate 50 mcg/actuation nasal spray,suspension 1 spray intranasal DAILY Check with primary doctor 09/02/20 [History Last Taken 09/02/20] furosemide 80 mg tablet 80 mg PO DAILY water pill 09/02/20 [History Last Taken 09/02/20] levothyroxine 88 mcg tablet 88 mcg PO DAILY thyroid 09/02/20 [History Last Taken 09/02/20] lorazepam 1 mg tablet 1 mg PO QHS anxiety 09/02/20 [History Last Taken 09/01/20] montelukast 10 mg tablet 10 mg PO DAILY Check with primary doctor 09/02/20 [History Last Taken 09/02/20] trazodone 100 mg tablet 100 mg PO QHS sleep 09/02/20 [History Last Taken 09/01/20] carvedilol 6.25 mg tablet 6.25 mg PO BID #60 tabs 01/06/21 [Rx Last Taken Unknown] atorvastatin 80 mg tablet 80 mg PO QHS #30 tabs 04/08/21 [Rx Last Taken Unknown] aspirin 81 mg tablet,delayed release (Adult Aspirin Regimen) 81 mg PO DAILY 05/17/21 [History Last Taken Unknown] amlodipine 10 mg tablet 10 mg PO DAILY 08/25/21 [History Last Taken Unknown] gabapentin 100 mg capsule (Neurontin) 100 mg PO TID 08/25/21 [History Last Taken Unknown] dulaglutide 0.75 mg/0.5 mL subcutaneous pen injector (Trulicity) 0.75 mg subcut QWEEK 09/02/21 [History Last Taken Unknown] insulin detemir U-100 100 unit/mL (3 mL) subcutaneous pen 37 unit subcut QHS blood sugar 09/02/21 [History Last Taken Unknown] insulin lispro 100 unit/mL subcutaneous pen See Protocol subcut QACHS blood sugar 09/02/21 [History Last Taken Unknown] ipratropium 0.5 mg-albuterol 3 mg (2.5 mg base)/3 mL nebulization soln 3 ml inhalation BID breathing tx 09/02/21 [History Last Taken Unknown] meloxicam 7.5 mg tablet 7.5 mg PO DAILY 09/02/21 [History Last Taken Unknown] paroxetine HCl 30 mg tablet 60 mg PO QHS mental health 09/02/21 [History Last Taken Unknown] cephalexin 500 mg capsule 500 mg PO Q6 #40 caps 09/11/21 [Rx Last Taken Unknown] hydrocodone-acetaminophen 5-325mg 5mg-325mg 1 tab PO Q6H PRN pain 3 days #10 tabs 09/11/21 [Rx Last Taken Unknown] clindamycin HCl 150 mg capsule 300 mg PO 4X/DAY #56 caps 10/02/21 [Rx Last Taken Unknown] hydrocodone-acetaminophen 5-325mg 5mg-325mg 1 tab PO Q6H PRN pain 3 days #12 tabs 10/02/21 [Rx Last Taken Unknown] Allergy/AdvReac Type Severity Reaction Status Date / Time Sulfa (Sulfonamide Allergy Anaphylaxis Verified 10/02/21 09:08 Antibiotics) sulfur dioxide Allergy Anaphylaxis Verified 10/02/21 09:08 Family History Grandmother Diabetes Mother Heart disease Surgical History H/O right heart catheterization History of cataract surgery History of coronary artery stent placement (02/24/17) Tubal ligation status Social History Smoking Status: Former smoker how long ago did patient quit smokin alcohol intake: former year quit: 1999 substance use type: does not use caffeine: Yes Type: carbonated beverages and tea ROS ROS ED ROS Narrative Past medical history: Reviewed Medications: Reviewed Social history: Noncontributory Review of systems: All systems negative except as indicated General: No fever Eyes: No visual changes ENT: No upper airway congestion, normal voice Neck: No neck pain Cardiovascular: No chest pain Respiratory: No shortness of breath or cough Gastrointestinal: No abdominal pain, nausea vomiting or diarrhea Genitourinary: No dysuria Musculoskeletal: Left heel and great toe pain Skin: No cellulitis redness or any other kind of rash. Neurological: No memory loss, confusion or any focal weakness Psych: No recent behavioral changes Hematologic: No easy bleeding or easy bruising EXAM Physical Exam Narrative Exam Narrative: Physical exam General: Patient appears chronically ill but not in distress. She appears her documented BMI of 39 Head: Normocephalic, Atraumatic Eyes: Conjunctiva not pale ENT: Moist mucous membranes Neck: Supple, Nontender, No lymphadenopathy Cardiovascular: Regular rate, Regular rhythm Respiratory: No distress, CTA bilaterally Abdomen: Soft, Nontender, Nondistended Back: Nontender, Normal Inspection. Negative for: CVA tenderness Extremities: Venous stasis skin changes of both lower extremities, left foot shows ulcer of the left heel but there is no erythema or calor there is also a small ulcerated lesion of the great toe but there is no erythema or calor or signs of infection Skin: Normal color, No rash Neurological: Alert, Normal Strength, Normal Sensation Psychological: Normal affect Const Vital Signs: 10/02/21 09:06 Temperature 97.2 F L Temperature Source Temporal Pulse Rate 88 Respiratory Rate 16 Blood Pressure 152/55 H Blood Pressure Mean 87 Pulse Ox 100 Oxygen Delivery Method Room Air [facility] Lab Data Labs: Laboratory Results - last 24 hr 10/02/21 10/02/21 10:25 10:25 WBC 9.5 RBC 2.68 L Hgb 8.1 L Hct 25.6 L MCV 95.5 MCH 30.2 MCHC 31.6 L RDW Std Deviation 53.2 H RDW Coeff of Magen 15.4 H Plt Count 177 MPV 10.1 Immature Gran % (Auto) 0.400 Neut % (Auto) 81.1 H Lymph % (Auto) 8.3 L [place] % (Auto) 7.2 Eos % (Auto) 2.5 Baso % (Auto) 0.5 Absolute Neuts (auto) 7.7 Absolute Lymphs (auto) 0.79 L Nucleated RBC % 0 ESR 49 H Sodium 141 Potassium 3.8 Chloride 111 H Carbon Dioxide 26.0 Anion Gap 4 L BUN 26 H Creatinine 1.38 H Estim Creat Clear Calc 36.57 Est GFR (MDRD) Af Amer 49 L Est GFR (MDRD) Non-Af 41 L BUN/Creatinine Ratio 18.8 Glucose 162 H Calcium 9.2 Total Bilirubin 0.50 AST 16 ALT 19 Alkaline Phosphatase 127 H C-React Prot Ext Range 9.99 H Total Protein 6.9 Albumin 2.8 L Globulin 4.1 Albumin/Globulin Ratio 0.7 L Radiography Diagnostic Testing: Clinical Impression(s) from Imaging Studies Foot X-Ray 10/02/21 09:36 IMPRESSION: * No evidence of osteomyelitis. * Mild soft tissue swelling Electronically Signed: Jerome Mo MD at 10:53 EDT , Foot x-ray read by me and radiologist is normal. Treatment and Re-Evaluation Narrative: Patient has somewhat elevated inflammatory markers but normal white count she has some cellulitis but no obvious osteomyelitis. I discussed with podiatry, she can get an outpatient work-up I will start her on antibiotics. There is still a very small chance that this could be early osteomyelitis but she tells me she has had this pain for least a month and the ulcer for about 3 months and she has a normal x-ray therefore I believe it is slightly lower chance of osteomyelitis. Regardless she will be seen this week with podiatry. Discharge Plan Triage Chief Complaint: Wound Check ED Provider: Froy Abdullahi Dx/Rx/DC Orders Clinical Impression: Chronic heel ulcer, Diabetic foot infection, Chronic ulcer of great toe Instructions: Wound Care Prescriptions: New clindamycin HCl 150 mg capsule 300 mg PO 4X/DAY Qty: 56 0RF hydrocodone-acetaminophen 5-325 mg tablet 1 tab PO Q6H PRN (Reason: pain) 3 Days Qty: 12 0RF No Action aspirin [Adult Aspirin Regimen] 81 mg tablet,delayed release (DR/EC) 81 mg PO DAILY Trulicity 0.75 mg/0.5 mL pen injector 0.75 mg subcut QWEEK Label Comments: 0.5 ML (0.75MG) SQ EVERYMWEEK DX:X meloxicam 7.5 mg tablet 7.5 mg PO DAILY levothyroxine 88 mcg Tablet 88 mcg PO DAILY furosemide 80 mg Tablet 80 mg PO DAILY trazodone 100 mg Tablet 100 mg PO QHS montelukast 10 mg Tablet 10 mg PO DAILY lorazepam 1 mg Tablet 1 mg PO QHS fluticasone propionate 50 mcg/actuation [place],Suspension 1 spray INTRANASAL DAILY bupropion HCl 300 mg Tablet Extended Release 24 Hr 300 mg PO DAILY cholecalciferol (vitamin D3) [Vitamin D3] 50 mcg (2,000 unit) Capsule 50 mcg PO DAILY fluticasone furoate-vilanterol [Breo Ellipta] 100-25 mcg/dose Blister With Device 1 inh INHALATION DAILY ipratropium-albuterol 0.5 mg-3 mg(2.5 mg base)/3 mL solution for nebulization 3 ml INHALATION BID insulin lispro 100 unit/mL insulin pen See Protocol SUBCUT QACHS Protocol: 6. Sliding Scale Insulin Custom Condition: 151-175 Dose/Route: 5 Condition: 176-200 Dose/Route: 7 Condition: 201-250 Dose/Route: 9 Condition: 251-300 Dose/Route: 11 Condition: 301-350 Dose/Route: 13 Condition: 351-400 Dose/Route: 15 Condition: 401-450 Dose/Route: 19 Protocol Text: Custom Sliding Scale Rx Instructions: 10 units plus sliding scale. SEE SLIDING SCALE paroxetine HCl 30 mg tablet 60 mg PO QHS insulin detemir U-100 100 unit/mL (3 mL) insulin pen 37 unit SUBCUT QHS amlodipine 10 mg Tablet 10 mg PO DAILY gabapentin [Neurontin] 100 mg Capsule 100 mg PO TID hydrocodone-acetaminophen 5-325 mg tablet 1 tab PO Q6H PRN (Reason: pain) 3 Days Qty: 10 0RF cephalexin 500 mg capsule 500 mg PO Q6 Qty: 40 0RF carvedilol 6.25 mg tablet 6.25 mg PO BID Qty: 60 11RF atorvastatin 80 mg tablet 80 mg PO QHS Qty: 30 11RF Primary Care Provider: Froy Gonzales Referrals: Fransisco Eugene DPM [Med Staff - Active Staff] - 3-5 Days Geovanna Mott ACCOUNTING REPRESENTATIVE, ACCOUNTING REPRESENTATIVE-C [NON-STAFF] - Disposition Disposition: Home, Self Care
[2021-10-02] MEDS: HYDROcodone Bitartrate/Apap 5/325 Tablet PO (10:19)
[2021-10-02 10:38] LABS: Absolute Lymphocyte Count 0.79 X10^3/uL (0.83-4.51); Absolute Neutrophil Count 7.7 X10^3/uL (2.0-7.7); Basophil# 0.05 X10^3/uL; Basophil% 0.5 % (0-1); Eosinophil# 0.24 X10^3/uL; Eosinophils% 2.5 % (0-5); Erythrocyte Sedimentation Rate 49 mm/hr (0-30); Hematocrit 25.6 % (37-47); Hemoglobin 8.1 g/dL (12.0-15.0); Lymphocyte # 0.79 X10^3/ul (0.83-4.51); Lymphocyte % 8.3 % (19-41); Mean Corp Hgb Conc 31.6 g/dL (32-36); Mean Corpuscular Hgb 30.2 pg (27.0-32.0); Mean Corpuscular Volume 95.5 fL (81-99); Mean Platelet Vol. 10.1 fl (6.2-12.0); Monocyte# 0.68 X10^3/uL; Monocyte% 7.2 % (0-10); NRBC Flagged by Analyzer 0 % (0-5); Neutrophil # 7.71 X10^3/uL (2.7-7.7); Neutrophil % 81.1 % (47-70); Platelet Count 177 K/mm3 (150-450); RBC Distribution Width CV 15.4 % (11.6-14.6); RBC Distribution Width SD 53.2 fl (35.1-43.9); Red Blood Count 2.68 M/mm3 (4.2-5.4); White Blood Count 9.5 K/mm3 (4.4-11.0)
[2021-10-02 10:50] LABS: ALB/GLOB Ratio 0.7 RATIO (0.9-2.4); AST(SGOT) 16 U/L (15-37); Alanine Aminotransfer ALT/SGPT 19 U/L (13-56); Albumin, Serum 2.8 g/dL (3.2-5.0); Alkaline Phosphatase 127 U/L (45-117); Anion Gap 4 (5-15); BUN 26 mg/dL (7-18); BUN/Creat Ratio 18.8 RATIO (10-20); CRP 9.99 mg/L (0.0-3.0); Calcium,Total 9.2 mg/dL (8.5-10.1); Chloride 111 mmol/L (98-107); Creatinine, Serum 1.38 mg/dL (0.55-1.02); EST Glomerular Filtration Rate 41 mL/min (>60); Est Glom Filt Rate - Afr Amer 49 mL/min (>60); Estimated Creatinine Clearance 36.57 ml/min; Globulin 4.1 g/dL (2.2-4.2); Glucose 162 mg/dL (74-106); Potassium 3.8 mmol/L (3.5-5.1); Protein, Total 6.9 g/dL (6.4-8.2); Sodium Level 141 mmol/L (136-145)
== END 2021-10-02 12:32 | disposition home or self-care (01) ==
PROVIDERS: Emergency Provider Emergency Medicine; PCP Family Medicine; Visit Provider Emergency Medicine
DX: E11.621 Type 2 diabetes mellitus with foot ulcer (principal); L97.429 Non-pressure chronic ulcer of left heel and midfoot with unspecified severity; L97.529 Non-pressure chronic ulcer of other part of left foot with unspecified severity; J44.9 Chronic obstructive pulmonary disease, unspecified; I11.0 Hypertensive heart disease with heart failure; I50.32 Chronic diastolic (congestive) heart failure; I27.21 Secondary pulmonary arterial hypertension; Z79.4 Long term (current) use of insulin; I25.10 Atherosclerotic heart disease of native coronary artery without angina pectoris; E78.5 Hyperlipidemia, unspecified; E03.9 Hypothyroidism, unspecified; G47.33 Obstructive sleep apnea (adult) (pediatric); E66.9 Obesity, unspecified; Z68.39 Body mass index [BMI] 39.0-39.9, adult; Z79.890 Hormone replacement therapy; Z79.1 Long term (current) use of non-steroidal anti-inflammatories (NSAID); Z79.899 Other long term (current) drug therapy; Z87.891 Personal history of nicotine dependence; I25.2 Old myocardial infarction; Z95.5 Presence of coronary angioplasty implant and graft
CPT/HCPCS: 73630; 80053; 85025; 85652; 86140; 99285

== ENCOUNTER 2021-10-14 10:03 | Inpatient (IN) | payer MEDICARE, MEDICAID, SELFPAY ==
[2021-10-14] VITALS (9 sets, daily range): BP systolic 96–133; BP diastolic 56–98; PULSE 81–105; RESP 18–26; TEMP 36.3–37.2; O2SAT 94–99; BMI 40.1; BMI 39.1
--- NOTE | 2021-10-14 10:25 | ED.VIS.LOWEX ---
HPI History of Present Illness Chief Complaint: Lower Extremity Injury Narrative Narrative: 66-year-old female presents from assisted living with chronic left heel ulcer and ulceration of her left great toe. She states that she was seen by the wound care center last on October 05, 9 days ago, and is currently on antibiotics. The nurse at her facility stated that there was foul, malodorous discharge from her wound. She complains of increased pain. She had a fall last evening. She usually walks with a walker but is currently using a wheelchair. She complains of left hip pain worse with movement. She denies any fevers but states she has occasional chills. No nausea or vomiting. No other symptoms. She states that her foot has been infected for the last 3 months and is not healing and perhaps getting worse. [facility] Medical History (Updated 10/14/21 @ 14:14 by Alona Chowdhury) Acute cervical myofascial strain Acute on chronic respiratory failure with hypoxemia Asthma Atherosclerotic heart disease of [place] coronary artery without angina pectoris Chronic heart failure with preserved ejection fraction (HFpEF) Chronic ulcer of great toe of left foot Closed head injury Congestive heart failure (CHF) COPD (chronic obstructive pulmonary disease) Decubitus ulcer of left heel, stage 3 Decubitus ulcer, heel, left, unstageable Depression Diabetes type 2, controlled Diverticulitis Essential hypertension Former smoker History of non-ST elevation myocardial infarction (NSTEMI) (02/24/17) Hyperlipidemia Hypothyroid Myocardial infarct Non-rheumatic tricuspid valve insufficiency Nonrheumatic mitral (valve) insufficiency Obesity Obstructive sleep apnea On home O2 Secondary pulmonary arterial hypertension Type 2 diabetes mellitus Home Medications bupropion HCl 300 mg 24 hr tablet, extended release 300 mg PO QHS depression 09/02/20 [History Last Taken 10/13/21] cholecalciferol (vitamin D3) 50 mcg (2,000 unit) capsule (Vitamin D3) 50 mcg PO DAILY supplement 09/02/20 [History Last Taken 10/14/21 09:30] fluticasone furoate 100 mcg-vilanterol 25 mcg/dose inhalation powder (Breo Ellipta) 1 inh inhalation DAILY breathing 09/02/20 [History Last Taken 10/14/21] fluticasone propionate 50 mcg/actuation nasal spray,suspension 1 spray intranasal DAILY PRN allergies 09/02/20 [History Last Taken 09/02/20] furosemide 80 mg tablet 80 mg PO DAILY water pill 09/02/20 [History Last Taken 10/14/21] levothyroxine 88 mcg tablet 88 mcg PO DAILY thyroid 09/02/20 [History Last Taken 10/14/21] lorazepam 1 mg tablet 1 mg PO QHS anxiety 09/02/20 [History Last Taken 10/13/21] montelukast 10 mg tablet 10 mg PO DAILY allergies 09/02/20 [History Last Taken 10/14/21] trazodone 100 mg tablet 100 mg PO QHS sleep 09/02/20 [History Last Taken 10/13/21] carvedilol 6.25 mg tablet 6.25 mg PO BID #60 tabs 01/06/21 [Rx Last Taken 10/14/21 09:30] atorvastatin 80 mg tablet 80 mg PO QHS #30 tabs 04/08/21 [Rx Last Taken 10/14/21 09:30] aspirin 81 mg tablet,delayed release (Adult Aspirin Regimen) 81 mg PO DAILY heart 05/17/21 [History Last Taken 10/14/21 09:30] amlodipine 10 mg tablet 10 mg PO DAILY bp 08/25/21 [History Last Taken 10/14/21 09:30] gabapentin 100 mg capsule (Neurontin) 100 mg PO TID nerve pain 08/25/21 [History Last Taken 10/14/21] dulaglutide 0.75 mg/0.5 mL subcutaneous pen injector (Trulicity) 0.75 mg subcut QWEEK dm 09/02/21 [History Last Taken 10/10/21] insulin detemir U-100 100 unit/mL (3 mL) subcutaneous pen 37 unit subcut QHS blood sugar 09/02/21 [History Last Taken 10/13/21] insulin lispro 100 unit/mL subcutaneous pen See Protocol subcut QACHS blood sugar 09/02/21 [History Last Taken 10/14/21] ipratropium 0.5 mg-albuterol 3 mg (2.5 mg base)/3 mL nebulization soln 3 ml inhalation BID PRN sob 09/02/21 [History Last Taken Unknown] meloxicam 7.5 mg tablet 7.5 mg PO DAILY pain 09/02/21 [History Last Taken 10/14/21] paroxetine HCl 30 mg tablet 60 mg PO QHS mental health 09/02/21 [History Last Taken 10/13/21] cephalexin 500 mg capsule 500 mg PO Q6 #40 caps 09/11/21 [Rx Last Taken 10/14/21 09:30] clindamycin HCl 150 mg capsule 300 mg PO 4X/DAY #56 caps 10/02/21 [Rx Last Taken 10/14/21 09:30] hydrocodone-acetaminophen 5-325mg 5mg-325mg 1 tab PO Q6H PRN pain 3 days #12 tabs 10/02/21 [Rx Last Taken 10/14/21] Allergy/AdvReac Type Severity Reaction Status Date / Time Sulfa (Sulfonamide Allergy Anaphylaxis Verified 10/14/21 10:12 Antibiotics) sulfur dioxide Allergy Anaphylaxis Verified 10/14/21 10:12 Family History Grandmother Diabetes Mother Heart disease Surgical History H/O right heart catheterization History of cataract surgery History of coronary artery stent placement (02/24/17) Tubal ligation status Social History Smoking Status: Former smoker how long ago did patient quit smokin alcohol intake: former year quit: 1999 substance use type: does not use caffeine: Yes Type: carbonated beverages and tea ROS ROS ED ROS Narrative Constitutional: No fever, no chills. HEENT: No sore throat. No neck pain. No loss of vision. No rhinorrhea. Cardiovascular: No chest pain. No palpitations. No pedal edema. Respiratory: No cough, no shortness of breath. Abdominal: No abdominal pain. No nausea. No vomiting. Genitourinary: No dysuria. No hematuria. Musculoskeletal: No myalgias. Left hip pain status post fall this morning. Left heel pain from chronic ulcer. Pain in left great toe medially secondary to active ulceration/infection. Neurologic: No headaches. No dizziness. No lightheadedness. Skin: No rash. No change in color. Psychiatric: No depression. No anxiety. EXAM Physical Exam Narrative Exam Narrative: Afebrile. Vital signs noted. HEENT: Normocephalic. Atraumatic. PERRL, EOMI. Neck soft and supple. No point tenderness or step off. Cardiovascular: Regular rate and rhythm. No murmurs, rubs, or gallops appreciated. Respiratory: No tachypnea. Lungs clear to auscultation bilaterally. Gastrointestinal: Abdomen soft, nontender, with normoactive bowel sounds. No rebound or guarding. Neurological: Awake. Alert. Nonfocal, nonlateralizing. Skin: No rash. Positive chronic ulceration left heel with minimal erythema, no purulent drainage. Positive ulceration on left great toe medially with noted erythema. Minimal purulent drainage. Musculoskeletal: No pedal edema. Full range of motion extremities. Mild tenderness to palpation left hip. Pelvis stable. No pain with logrolling of femur. Const Vital Signs: 10/14/21 10:05 10/14/21 10:10 10/14/21 10:10 Temperature 97.6 F L 97.6 F L 97.6 F L Temperature Source Oral Oral Oral Pulse Rate 93 93 93 Respiratory Rate 20 H 20 H 20 H Blood Pressure 133/69 H 133/69 H 133/69 H Blood Pressure Mean 90 90 90 Pulse Ox 96 95 98 Oxygen Delivery Method Nasal Cannula Nasal Cannula Nasal Cannula Oxygen Flow Rate (L/min) 4 4 4 10/14/21 11:10 10/14/21 12:10 Temperature 97.3 F L 97.5 F L Temperature Source Temporal Temporal Pulse Rate 84 105 H Respiratory Rate 18 20 H Blood Pressure 122/98 H 96/73 Blood Pressure Mean 106 80 Pulse Ox 95 99 Oxygen Delivery Method Nasal Cannula Nasal Cannula Oxygen Flow Rate (L/min) 4 5 MDM MDM MDM Narrative Medical decision making narrative: I will obtain x-rays of the left hip and of the left foot. Basic laboratories were obtained including CBC, CMP, and lactic acid. Patient has an elevated white count of 18.7, hemoglobin low at 7.0. I do not feel that she requires immediate transfusion. Platelet count 180. Her electrolyte panel shows chloride elevated at 110 with a normal anion gap of 5. BUN elevated at 29 with creatinine of 1.5. Glucose appropriately elevated at 122. Lactic acid normal at 1.3. Her LFTs show alk phos elevated at 125 which I think is nonspecific. X-ray of the left foot interpreted by myself shows questionable fracture of the distal portion of the proximal phalanx. I am concerned that this may be bony destruction or related to osteomyelitis. Patient was started on Zosyn and vancomycin. X-rays of the left hip interpreted by myself show no evidence of fracture. Given her elevated white count and concern for osteomyelitis, I did discuss the patient with the hospitalist for admission. She is in stable condition. Lab Data Attestation: I reviewed the patient's lab results. Labs: Laboratory Results - last 24 hr 10/14/21 10/14/21 10/14/21 10:45 10:45 10:45 WBC 18.7 H RBC 2.46 L Hgb 7.0 L Hct 23.2 L MCV 94.3 MCH 28.5 MCHC 30.2 L RDW Std Deviation 53.5 H RDW Coeff of Magen 15.4 H Plt Count 180 MPV 9.9 Immature Gran % (Auto) 0.600 Neut % (Auto) 90.5 H Lymph % (Auto) 3.5 L [place] % (Auto) 4.9 Eos % (Auto) 0.3 Baso % (Auto) 0.2 Absolute Neuts (auto) 16.9 H Absolute Lymphs (auto) 0.66 L Nucleated RBC % 0 Retic Count Immature Retic Fraction Retic Hgb Equivalent Sodium 141 Potassium 3.6 Chloride 110 H Carbon Dioxide 26.0 Anion Gap 5 BUN 29 H Creatinine 1.56 H Estim Creat Clear Calc 32.35 Est GFR (MDRD) Af Amer 43 L Est GFR (MDRD) Non-Af 35 L BUN/Creatinine Ratio 18.6 Glucose 122 H Lactic Acid 1.3 Calcium 8.8 Iron TIBC Iron Saturation Ferritin Total Bilirubin 0.70 AST 24 ALT 33 Alkaline Phosphatase 125 H Total Protein 6.4 Albumin 2.3 L Globulin 4.1 Albumin/Globulin Ratio 0.6 L 10/14/21 10/14/21 10:45 10:45 WBC RBC Hgb Hct MCV MCH MCHC RDW Std Deviation RDW Coeff of Magen Plt Count MPV Immature Gran % (Auto) Neut % (Auto) Lymph % (Auto) [place] % (Auto) Eos % (Auto) Baso % (Auto) Absolute Neuts (auto) Absolute Lymphs (auto) Nucleated RBC % Retic Count 3.15 H Immature Retic Fraction 21.00 H Retic Hgb Equivalent 18.5 L Sodium Potassium Chloride Carbon Dioxide Anion Gap BUN Creatinine Estim Creat Clear Calc Est GFR (MDRD) Af Amer Est GFR (MDRD) Non-Af BUN/Creatinine Ratio Glucose Lactic Acid Calcium Iron 15 L TIBC 229 L Iron Saturation 6.6 L Ferritin 420 H Total Bilirubin AST ALT Alkaline Phosphatase Total Protein Albumin Globulin Albumin/Globulin Ratio Radiography Diagnostic Testing: Clinical Impression(s) from Imaging Studies Foot X-Ray 10/14/21 10:50 IMPRESSION: Nondisplaced fracture along the distal portion of the proximal phalanx of the great toe. Soft tissue swelling. Electronically Signed: Butch Ling MD at 11:07 EDT , Hip/Pelvis X-Ray 10/14/21 10:50 IMPRESSION: Mild degree of degenerative changes of the left hip joint. Electronically Signed: Butch Ling MD at 11:08 EDT , Discharge Plan Dx/Rx/DC Orders Clinical Impression: Diabetic foot ulcers, Fall, Contusion of hip, left Disposition Disposition: Acute Care Hospital [facility] Discharge Date/Time: 10/14/21 13:41
[2021-10-14] MEDS: Morphine 4 MG/ML Syringe IV (10:42)
--- NOTE | 2021-10-14 10:50 | RAD_ITS ---
STUDY: X-RAY - PELVIS AND LEFT HIP REASON FOR EXAM: Female, 66 years old. Left hip pain following a fall. TECHNIQUE: 3 views of the pelvis and hip. COMPARISON: None. FINDINGS: Moderate amount of fecal material is seen in the colon. Normal visualized soft tissue structures. Normal bilateral iliac wings, sacroiliac joints and visualized sacrum. Normal bilateral superior and inferior pubic rami. There is narrowing with sclerosis of the pubic symphysis. Normal bilateral ischial tuberosities. Normal visualized femoral head. There is osteoarthritic spur formation of the acetabular rim. There is mild articular joint space narrowing of the hip. RAD/HIP, UNI W/ Pelvis 2-3 Views IMPRESSION: Mild degree of degenerative changes of the left hip joint. Electronically Signed: Butch Ling MD at 11:08 EDT ,
--- NOTE | 2021-10-14 10:50 | RAD_ITS ---
STUDY: X-RAY - LEFT FOOT CLINICAL: Female, 66 years old. Pain along the great toe. TECHNIQUE: 3 view(s) of the foot. COMPARISON: Comparison is made with prior study dated 10/02/2021. FINDINGS: There is a plantar calcaneal spur. Normal visualized subtalar, talonavicular, calcaneocuboid, tarsal and tarsometatarsal articulations. Normal metatarsi. 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 Normal tibial and fibular sesamoid bones. Normal interphalangeal joint of the great toe. Nondisplaced transverse fracture of the distal portion of the proximal phalanx of the great toe. Normal second through fifth metatarsophalangeal joints. Normal interphalangeal joints and phalanges of the lesser toes. There is non-specific soft tissue swelling of the foot. RAD/Foot min 3 Views IMPRESSION: Nondisplaced fracture along the distal portion of the proximal phalanx of the great toe. Soft tissue swelling. Electronically Signed: Butch Ling MD at 11:07 EDT ,
[2021-10-14 10:58] LABS: Absolute Lymphocyte Count 0.66 X10^3/uL (0.83-4.51); Absolute Neutrophil Count 16.9 X10^3/uL (2.0-7.7); Basophil# 0.04 X10^3/uL; Basophil% 0.2 % (0-1); Eosinophil# 0.06 X10^3/uL; Eosinophils% 0.3 % (0-5); Hematocrit 23.2 % (37-47); Lymphocyte # 0.66 X10^3/ul (0.83-4.51); Lymphocyte % 3.5 % (19-41); Mean Corp Hgb Conc 30.2 g/dL (32-36); Mean Corpuscular Hgb 28.5 pg (27.0-32.0); Mean Corpuscular Volume 94.3 fL (81-99); Mean Platelet Vol. 9.9 fl (6.2-12.0); Monocyte# 0.92 X10^3/uL; Monocyte% 4.9 % (0-10); NRBC Flagged by Analyzer 0 % (0-5); Neutrophil # 16.92 X10^3/uL (2.7-7.7); Neutrophil % 90.5 % (47-70); Platelet Count 180 K/mm3 (150-450); RBC Distribution Width CV 15.4 % (11.6-14.6); RBC Distribution Width SD 53.5 fl (35.1-43.9); Red Blood Count 2.46 M/mm3 (4.2-5.4); White Blood Count 18.7 K/mm3 (4.4-11.0)
[2021-10-14 11:14] LABS: ALB/GLOB Ratio 0.6 RATIO (0.9-2.4); AST(SGOT) 24 U/L (15-37); Alanine Aminotransfer ALT/SGPT 33 U/L (13-56); Albumin, Serum 2.3 g/dL (3.2-5.0); Alkaline Phosphatase 125 U/L (45-117); Anion Gap 5 (5-15); BUN 29 mg/dL (7-18); BUN/Creat Ratio 18.6 RATIO (10-20); Calcium,Total 8.8 mg/dL (8.5-10.1); Chloride 110 mmol/L (98-107); Creatinine, Serum 1.56 mg/dL (0.55-1.02); EST Glomerular Filtration Rate 35 mL/min (>60); Est Glom Filt Rate - Afr Amer 43 mL/min (>60); Estimated Creatinine Clearance 32.35 ml/min; Globulin 4.1 g/dL (2.2-4.2); Glucose 122 mg/dL (74-106); Potassium 3.6 mmol/L (3.5-5.1); Protein, Total 6.4 g/dL (6.4-8.2); Sodium Level 141 mmol/L (136-145)
[2021-10-14 11:22] LABS: Lactic Acid 1.3 mmol/L (0.4-1.9)
--- NOTE | 2021-10-14 12:37 | PCM.HP.STD ---
HPI - General General Date of Admission: 10/14/21 Date of Service: 10/14/21 Chief Complaint: Left foot chronic wound ulcer HPI Narrative SONA WILSON, is a 66 F who presents with the above. Patient has PMHx of type II DM, complicated by peripheral neuropathy, chronic hypoxic respiratory failure on 4 L of oxygen, chronic ulcers of the foot. Patient follows longitudinally with the wound clinic. Patient was recently seen in the ED on 10/02/22 recommended to follow-up with podiatry. She has not followed up. Today, she fell and hurt her toe. She had excruciating pain in her toe prompting her to come to emergency room. She also stated that she has had increased discharge from her left toe wound. She denied any fever or chills or nausea or vomiting or diarrhea. In the ED, blood pressure is 133/69, heart rate 92, respiratory 20, temperature 97.6 F, oxygen sat is 96% on 4 L. WBC count is 18.7, hemoglobin is 7.3, platelet count 180, sodium 141, potassium 3.6, chloride 110, bicarbonate 26, BUN 29, creatinine 1.56, which is about her baseline. Lactic acid 1.3. CMP unremarkable. Iron sat 6.6, TIBC 2 9, iron 15, ferritin 420. X-ray of the left foot showed nondisplaced fracture along the distal portion of proximal phalanx of the great toe. Soft tissue swelling. X-ray of the hip showed degenerative changes. [facility] Medical History Acute cervical myofascial strain Acute on chronic respiratory failure with hypoxemia Asthma Atherosclerotic heart disease of [place] coronary artery without angina pectoris Chronic heart failure with preserved ejection fraction (HFpEF) Chronic ulcer of great toe of left foot Closed head injury Congestive heart failure (CHF) COPD (chronic obstructive pulmonary disease) Decubitus ulcer of left heel, stage 3 Decubitus ulcer, heel, left, unstageable Depression Diabetes type 2, controlled Diverticulitis Essential hypertension Former smoker History of non-ST elevation myocardial infarction (NSTEMI) (02/24/17) Hyperlipidemia Hypothyroid Myocardial infarct Non-rheumatic tricuspid valve insufficiency Nonrheumatic mitral (valve) insufficiency Obesity Obstructive sleep apnea On home O2 Secondary pulmonary arterial hypertension Type 2 diabetes mellitus Home Medications bupropion HCl 300 mg 24 hr tablet, extended release 300 mg PO QHS depression 09/02/20 [History Last Taken 10/13/21] cholecalciferol (vitamin D3) 50 mcg (2,000 unit) capsule (Vitamin D3) 50 mcg PO DAILY supplement 09/02/20 [History Last Taken 10/14/21 09:30] fluticasone furoate 100 mcg-vilanterol 25 mcg/dose inhalation powder (Breo Ellipta) 1 inh inhalation DAILY breathing 09/02/20 [History Last Taken 10/14/21] fluticasone propionate 50 mcg/actuation nasal spray,suspension 1 spray intranasal DAILY PRN allergies 09/02/20 [History Last Taken 09/02/20] furosemide 80 mg tablet 80 mg PO DAILY water pill 09/02/20 [History Last Taken 10/14/21] levothyroxine 88 mcg tablet 88 mcg PO DAILY thyroid 09/02/20 [History Last Taken 10/14/21] lorazepam 1 mg tablet 1 mg PO QHS anxiety 09/02/20 [History Last Taken 10/13/21] montelukast 10 mg tablet 10 mg PO DAILY allergies 09/02/20 [History Last Taken 10/14/21] trazodone 100 mg tablet 100 mg PO QHS sleep 09/02/20 [History Last Taken 10/13/21] carvedilol 6.25 mg tablet 6.25 mg PO BID #60 tabs 01/06/21 [Rx Last Taken 10/14/21 09:30] atorvastatin 80 mg tablet 80 mg PO QHS #30 tabs 04/08/21 [Rx Last Taken 10/14/21 09:30] aspirin 81 mg tablet,delayed release (Adult Aspirin Regimen) 81 mg PO DAILY heart 05/17/21 [History Last Taken 10/14/21 09:30] amlodipine 10 mg tablet 10 mg PO DAILY bp 08/25/21 [History Last Taken 10/14/21 09:30] gabapentin 100 mg capsule (Neurontin) 100 mg PO TID nerve pain 08/25/21 [History Last Taken 10/14/21] dulaglutide 0.75 mg/0.5 mL subcutaneous pen injector (Trulicity) 0.75 mg subcut QWEEK dm 09/02/21 [History Last Taken 10/10/21] insulin detemir U-100 100 unit/mL (3 mL) subcutaneous pen 37 unit subcut QHS blood sugar 09/02/21 [History Last Taken 10/13/21] insulin lispro 100 unit/mL subcutaneous pen See Protocol subcut QACHS blood sugar 09/02/21 [History Last Taken 10/14/21] ipratropium 0.5 mg-albuterol 3 mg (2.5 mg base)/3 mL nebulization soln 3 ml inhalation BID PRN sob 09/02/21 [History Last Taken Unknown] meloxicam 7.5 mg tablet 7.5 mg PO DAILY pain 09/02/21 [History Last Taken 10/14/21] paroxetine HCl 30 mg tablet 60 mg PO QHS mental health 09/02/21 [History Last Taken 10/13/21] cephalexin 500 mg capsule 500 mg PO Q6 #40 caps 09/11/21 [Rx Last Taken 10/14/21 09:30] clindamycin HCl 150 mg capsule 300 mg PO 4X/DAY #56 caps 10/02/21 [Rx Last Taken 10/14/21 09:30] hydrocodone-acetaminophen 5-325mg 5mg-325mg 1 tab PO Q6H PRN pain 3 days #12 tabs 10/02/21 [Rx Last Taken 10/14/21] Allergy/AdvReac Type Severity Reaction Status Date / Time Sulfa (Sulfonamide Allergy Anaphylaxis Verified 10/14/21 10:12 Antibiotics) sulfur dioxide Allergy Anaphylaxis Verified 10/14/21 10:12 Family History Grandmother Diabetes Mother Heart disease Surgical History H/O right heart catheterization History of cataract surgery History of coronary artery stent placement (02/24/17) Tubal ligation status Social History Smoking Status: Former smoker how long ago did patient quit smokin alcohol intake: former year quit: 1999 substance use type: does not use caffeine: Yes Type: carbonated beverages and tea ROS ROS Narrative Constitutional: Reports: Malaise, Weakness, Fatigue. Denies: Anorexia, Chills, Fever, Night Sweats, Weight Change Eyes: Denies: Blurred vision, Cataracts, Conjunctivae Inflammation, Pain, Redness, Vision Change HEENT: Denies: Difficulty Hearing, Difficulty Swallowing, Head Aches, Hearing Changes, Sinus Congestion, Sinus Drainage Cardiovascular: Denies: Chest Pain, Orthopnea, Palpitations Respiratory: Denies: Cough, Shortness of breath at rest, Sputum production Gastrointestinal: Denies: Abdominal Pain, Nausea, Vomiting Genitourinary: Denies: Dysuria Musculoskeletal: Denies: Joint Pain, Joint stiffness, Joint swelling, Joint Tenderness Skin: Denies: Rash, Wounds Neurological: Denies: Numbness, Tingling, Focal weakness Vital Signs Vital Signs Vital Signs: 10/14/21 10:05 10/14/21 10:10 10/14/21 10:10 Temperature 97.6 F L 97.6 F L 97.6 F L Temperature Source Oral Oral Oral Pulse Rate 93 93 93 Respiratory Rate 20 H 20 H 20 H Blood Pressure 133/69 H 133/69 H 133/69 H Blood Pressure Mean 90 90 90 Pulse Ox 96 95 98 Oxygen Delivery Method Nasal Cannula Nasal Cannula Nasal Cannula Oxygen Flow Rate (L/min) 4 4 4 10/14/21 11:10 10/14/21 12:10 Temperature 97.3 F L 97.5 F L Temperature Source Temporal Temporal Pulse Rate 84 105 H Respiratory Rate 18 20 H Blood Pressure 122/98 H 96/73 Blood Pressure Mean 106 80 Pulse Ox 95 99 Oxygen Delivery Method Nasal Cannula Nasal Cannula Oxygen Flow Rate (L/min) 4 5 Weight Weight: 109.4 kg Body Mass Index (BMI) 40.1 Physical Exam Narrative Physical exam: General: Alert, Oriented x3, Cooperative, No apparent distress HEENT: Atraumatic Oral: Moist Mucosa Neck: Supple Lungs: Clear to auscultation Cardiovascular: HS I+II, regular, no murmurs Abdomen: Bowel Sounds Present, Soft, Non Tender Extremities: Left foot in gauze), bilateral pedal edema trace/+1 Skin: No rashes, No breakdown Neurological: Grossly intact Psych/Mental Status: Appropriate Results Lab / Micro Data Result Diagrams: 10/14/21 10:45 10/14/21 10:45 Labs: Laboratory Results - last 24 hr 10/14/21 10:45: WBC 18.7 H, RBC 2.46 L, Hgb 7.0 L, Hct 23.2 L, MCV 94.3, MCH 28.5, MCHC 30.2 L, RDW Std Deviation 53.5 H, RDW Coeff of Magen 15.4 H, Plt Count 180, MPV 9.9, Immature Gran % (Auto) 0.600, Neut % (Auto) 90.5 H, Lymph % (Auto) 3.5 L, [place] % (Auto) 4.9, Eos % (Auto) 0.3, Baso % (Auto) 0.2, Absolute Neuts (auto) 16.9 H, Absolute Lymphs (auto) 0.66 L, Nucleated RBC % 0 10/14/21 10:45: Sodium 141, Potassium 3.6, Chloride 110 H, Carbon Dioxide 26.0, Anion Gap 5, BUN 29 H, Creatinine 1.56 H, Estim Creat Clear Calc 32.35, Est GFR (MDRD) Af Amer 43 L, Est GFR (MDRD) Non-Af 35 L, BUN/Creatinine Ratio 18.6, Glucose 122 H, Calcium 8.8, Total Bilirubin 0.70, AST 24, ALT 33, Alkaline Phosphatase 125 H, Total Protein 6.4, Albumin 2.3 L, Globulin 4.1, Albumin/Globulin Ratio 0.6 L 10/14/21 10:45: Lactic Acid 1.3 Radiology Impression Foot X-Ray 10/14/21 10:50 IMPRESSION: Nondisplaced fracture along the distal portion of the proximal phalanx of the great toe. Soft tissue swelling. Electronically Signed: Butch Ling MD at 11:07 EDT , Hip/Pelvis X-Ray 10/14/21 10:50 IMPRESSION: Mild degree of degenerative changes of the left hip joint. Electronically Signed: Butch Ling MD at 11:08 EDT , Assessment & Plan Assessment/Plan (1) Diabetic foot ulcers: PLAN: Plan 1. Acute on chronic cholecystitis, worsening left foot ulcers?heel and great toe ulcers Patient is a diabetic with peripheral neuropathy X-ray of the foot showed nondisplaced fracture of the proximal phalanx Started on IV vancomycin and Jen Wound RN, podiatry consulted, cultures taken Further imaging of the foot will be per podiatry recommendation 2. Type II DM complicated by peripheral neuropathy 3. Chronic hypoxic respiratory failure/pulmonary hypertension on 4 L of oxygen 4. Hypertension/Hyperlipidemia/CAD/chronic heart failure preserved EF/ 5. DVT prophylaxis - Heparin SC Charges/Coding Visit Charges Inpatient E&M: 05378 Init Hosp L3
[2021-10-14 14:10] LABS: Platelet Count 194 K/mm3 (150-450); RET-HE 18.5 pg (30-35); Reticulocyte Count 3.15 % (0.5-1.5)
[2021-10-14 14:17] LABS: Ferritin 420 ng/mL (8-252); Iron 15 ug/dL (50-170); Iron Binding Capacity,Total 229 ug/dL (250-450); PERCENT IRON SATURATION 6.6 % (15.0-55.0)
--- NOTE | 2021-10-14 14:56 | WOUNDNOTE ---
wound photo: right great toe
--- NOTE | 2021-10-14 14:56 | WOUNDNOTE ---
wound photo: right heel
[2021-10-14] MEDS: Gabapentin 100 MG Capsule PO ×2 (15:12→22:49)
[2021-10-14] MEDS: HYDROcodone Bitartrate/Apap 5/325 Tablet PO (15:12)
--- NOTE | 2021-10-14 15:38 | PCM.RX.CS ---
Consult Pharmacy has been consulted to manage selected antiobiotic: Vancomycin Type of Consult: New start Labs: Sodium 141 mmol/L (136-145) 10/14/21 10:45 Potassium 3.6 mmol/L (3.5-5.1) 10/14/21 10:45 Chloride 110 mmol/L (98-107) H 10/14/21 10:45 Carbon Dioxide 26.0 mmol/L (21.0-32.0) 10/14/21 10:45 Anion Gap 5 (5-15) 10/14/21 10:45 BUN 29 mg/dL (7-18) H 10/14/21 10:45 Creatinine 1.56 mg/dL (0.55-1.02) H 10/14/21 10:45 Est GFR (MDRD) Af Amer 43 mL/min (>60) L 10/14/21 10:45 Est GFR (MDRD) Non-Af 35 mL/min (>60) L 10/14/21 10:45 BUN/Creatinine Ratio 18.6 RATIO (10-20) 10/14/21 10:45 Glucose 122 mg/dL (74-106) H 10/14/21 10:45 Goal Trough: 15-20 mcg/mL Pharmacy Plan for Drug Dosing: NEW START IV VANCOMYCIN Consulting Physician: Dr. Lauro Wilcox Indication: Goal Trough: 15-20 SrCr: 1.56 CrCl: 44mls/min (using an adjusted body weight of 77kg) Comments: pt received a 1750mg x1 dose in the ER on 10/14/21 at 1322 Vancomcyin Dose: based on pts weight and renal function, recommend an initial dose of 750mg q12h starting 10/15/21 at 0200. trough before the 4th total dose Pending Level: 10/16/21 at 0130 Pharmacy Service will continue to monitor and adjust dosing as required. Follow-Up Labs: Trough Vancomycin - 10/16/21 at 0130
--- NOTE | 2021-10-14 15:55 | CHAPLAIN ---
Type of Pastoral Visit _x__ Initial Visit ___ Follow-up Visit ___ On-call Visit ___ General Patient Visit ___ Spiritual Assessment ___ Family Conference ___ Bereavement ___ Rapid Response ___ Code Blue ___ Other (describe below) Pastoral Care Referral From _x__ Patient ___ Family ___ Nurse ___ Physician ___ Sole Cementer ___ Blueprint Processor ___ Other (describe below) Sacrament/Intervention ___ Active listening ___ Anointing ___ Jehovah'S Witness ___ Bereavement ___ Communion ___ Charo exploration ___ ___ Life review _x__ Prayer ___ Reconciliation ___ Sacrament of Sick _x__ Supportive presence ___ Wedding ___ Other (describe below) Pastoral Comments patient just got settled into her room and says I am ready to sleep but pt is welcoming and says yes, a prayer would be good; pt expresses thanks for the visit of support and prayer;
--- NOTE | 2021-10-14 16:11 | CASEMGMT ---
LW/Healthcare POA forms are not on file. SW let pt know and asked her to have them brought in as able so we can put a copy on the chart. Pt states understanding. NATAN Oconnell
[2021-10-14 16:20] LABS: Bedside Glucose 84 mg/dL (74-106)
[2021-10-14] MEDS: Juven (unflavored) Packet 1 PACKET PO (16:48)
[2021-10-14 16:56] LABS: M R Staph aureus DNA By PCR Negative (Negative); Probe Check PASS; Specimen Processing Control PASS; Staph aureus DNA By PCR NEGATIVE (Negative)
--- NOTE | 2021-10-14 20:41 | CON.PCM_ITS ---
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 Left lower extremity Wounds: Left heel decubitus ulceration Clark stage II. Ulcerative site demonstrates slight localized erythema about the heel with no purulent drainage, no malodor, no palpable fluctuance, no bogginess, no visible abscess or other localized signs of infection. Ulcerative base demonstrates thickened yellow fibrotic tissue. Ulceration site measures 1.5 cm x 1.5 cm x 0.1 cm. Left hallux dorsomedial wound noted with overlying eschar and subdermal hemorrhaging/ecchymosis about the distal digit extending to the IPJ. This wound site measures 1.8 cm x 2 cm x 0.1 cm. Scant amount of watery purulent drainage was expressed from the dorsal medial aspect. No malodor noted. No palpable fluctuance, visible abscess, no bogginess noted to the hallux. There is a slight amount of erythema about the hallux extending proximally just past the first metatarsal head. There is also peeling skin noted about the hallux. After verbal consent was obtained I cleansed the right ankle with 70% isopropyl alcohol and performed a local anesthetic ankle block consisting of 20 cc of 1% lidocaine plain. After anesthesia was achieved I performed an excisional debridement of the left hallux to the level of the subcutaneous tissue. 100% of the wound site was debrided utilizing a #15 blade and pickups. Debridement was performed to remove fibrous, devitalized subcutaneous, biofilm, slough. Hemostasis achieved with pressure and gauze. Patient tolerated the procedure well. During procedure scant amount of purulence was expressible from the dorsomedial aspect of the hallux, this however was minimal and upon further juan j ridement no further purulence was expressible. I discussed with her that I will continue to monitor her response to the debridement and IV antibiotics as she would like to keep her toe. Dressing: Betadine soaked Adaptic, 4 x 4 gauze, ABD to the heel, Kerlix, Kenny wrap lightly rolled onto the foot. Nursing to perform dressing changes daily. May reinforce for strikethrough. Apply Santyl to left heel daily with wet to dry gauze. Edema/offload: She is to elevate lower extremity at all times of rest with pillow under the lower leg to elevate the heel off the bed. She may be weightbearing to the foot with the assistance of a walker for bathroom privileges. Vascular: DP and PT pulses were weakly palpable, capillary fill time is less than 5 seconds to the digits. I ordered lower extremity arterial studies of bilateral lower extremities, results pending Infection: Blood cultures obtained results pending. Wound cultures obtained results pending. Staff aureus protein A PCR was negative. MRSA PCR negative. She does have some localized erythema about the hallux extending proximally just past the first metatarsal head with a scant amount of watery purulent drainage from the dorsomedial aspect of her left hallux wound. WBC currently at 18.7. She is currently on IV Vanco/Zosyn. She is also suffered a fracture of the distal phalanx of the left hallux. Radiographs: Radiographic images of the left foot obtained 10/14/2021 demonstrate nondisplaced fracture of the distal phalanx of the hallux secondary to her fall earlier today. There is also nonspecific edema about the dorsal aspect of the foot. Pain: She may take hydrocodone-acetaminophen as needed for pain Host factors: DM type II with peripheral polyneuropathy, chronic venous insufficiency bilaterally, lymphedema bilaterally Medicine following for medical management, this is greatly appreciated Podiatry will continue to follow for local wound care. Podiatric surgical intervention not anticipated at this present time. I will see how she responds to the debridement performed today, IV antibiotics, and her pending vascular studies. Pending vascular studies if she has failure to respond to IV Abx I have discussed possible amputation of the left hallux. I have also discussed returning to the wound care center following discharge to continue with local wound care. Please do not hesitate to call for any questions or concerns Jr. Leny MorganPCathyM. [facility] [phone] Note: Artoo speech recognition chief librarian work with blind software was used to create portions of this document. Sound-alike and misspelled words, as well as other chief librarian work with blind errors may be contained in the documentation. HPI Consult Data Date of Consult: 10/14/21 HPI Narrative Reason for Consultation: Chronic ulcerations of the left foot HPI Narrative: SONA WILSON, is a 66 F who presents to the [place] ED by way of her assisted living facility for chronic ulcerations of the left foot. She has history of chronic respiratory failure with hypoxia on home oxygen therapy, COPD, DM type II with peripheral polyneuropathy, history of falls, decubitus ulceration of the left heel Clark stage III, and a nonpressure ulceration to the dorsomedial left hallux. She states that she has had these wounds for the last 3 months but only recently noticed that they have gotten worse. The nurse at the assisted living facility noticed some drainage from the left hallux with a odor and had her sent to the [place] ED for evaluation. Following her evaluation in the ED wound cultures were taken, blood cultures were taken, and her WBC noted to be 18.7. She denies any nausea, vomiting, fever, but does admit to occasional chills. She states she also felt malaise, weakness, and fatigue. She states she was following Dr. Ghosh in the wound care center but has not returned since September 29. Patient was supposed to see Dr. No in the office on 10/12/2021 but missed the appointment. She states that she fell around 2 AM this morning in juring her left hallux. She states that she wanted to go to the ED more for pain of the left toe after her fall. She was admitted for cellulitis of the left foot and consulted to podiatry for evaluation of her chronic ulcerations of the left foot. 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 Chronic heart failure with preserved ejection fraction (HFpEF) Chronic ulcer of great toe of left foot Closed head injury Congestive heart failure (CHF) COPD (chronic obstructive pulmonary disease) Decubitus ulcer of left heel, stage 3 Decubitus ulcer, heel, left, unstageable Depression Diabetes type 2, controlled Diverticulitis Essential hypertension Former smoker History of non-ST elevation myocardial infarction (NSTEMI) (02/24/17) Hyperlipidemia Hypothyroid Myocardial infarct Non-rheumatic tricuspid valve insufficiency Nonrheumatic mitral (valve) insufficiency Obesity Obstructive sleep apnea On home O2 Secondary pulmonary arterial hypertension Type 2 diabetes mellitus Home Medications bupropion HCl 300 mg 24 hr tablet, extended release 300 mg PO QHS depression 09/02/20 [History Last Taken 10/13/21] cholecalciferol (vitamin D3) 50 mcg (2,000 unit) capsule (Vitamin D3) 50 mcg PO DAILY supplement 09/02/20 [History Last Taken 10/14/21 09:30] fluticasone furoate 100 mcg-vilanterol 25 mcg/dose inhalation powder (Breo Ellipta) 1 inh inhalation DAILY breathing 09/02/20 [History Last Taken 10/14/21] fluticasone propionate 50 mcg/actuation nasal spray,suspension 1 spray intranasal DAILY PRN allergies 09/02/20 [History Last Taken 09/02/20] furosemide 80 mg tablet 80 mg PO DAILY water pill 09/02/20 [History Last Taken 10/14/21] levothyroxine 88 mcg tablet 88 mcg PO DAILY thyroid 09/02/20 [History Last Taken 10/14/21] lorazepam 1 mg tablet 1 mg PO QHS anxiety 09/02/20 [History Last Taken 10/13/21] montelukast 10 mg tablet 10 mg PO DAILY allergies 09/02/20 [History Last Taken 10/14/21] trazodone 100 mg tablet 100 mg PO QHS sleep 09/02/20 [History Last Taken 10/13/21] carvedilol 6.25 mg tablet 6.25 mg PO BID #60 tabs 01/06/21 [Rx Last Taken 10/14/21 09:30] atorvastatin 80 mg tablet 80 mg PO QHS #30 tabs 04/08/21 [Rx Last Taken 10/14/21 09:30] aspirin 81 mg tablet,delayed release (Adult Aspirin Regimen) 81 mg PO DAILY heart 05/17/21 [History Last Taken 10/14/21 09:30] amlodipine 10 mg tablet 10 mg PO DAILY bp 08/25/21 [History Last Taken 10/14/21 09:30] gabapentin 100 mg capsule (Neurontin) 100 mg PO TID nerve pain 08/25/21 [History Last Taken 10/14/21] dulaglutide 0.75 mg/0.5 mL subcutaneous pen injector (Trulicity) 0.75 mg subcut QWEEK dm 09/02/21 [History Last Taken 10/10/21] insulin detemir U-100 100 unit/mL (3 mL) subcutaneous pen 37 unit subcut QHS blood sugar 09/02/21 [History Last Taken 10/13/21] insulin lispro 100 unit/mL subcutaneous pen See Protocol subcut QACHS blood sugar 09/02/21 [History Last Taken 10/14/21] ipratropium 0.5 mg-albuterol 3 mg (2.5 mg base)/3 mL nebulization soln 3 ml inhalation BID PRN sob 09/02/21 [History Last Taken Unknown] meloxicam 7.5 mg tablet 7.5 mg PO DAILY pain 09/02/21 [History Last Taken 10/14/21] paroxetine HCl 30 mg tablet 60 mg PO QHS mental health 09/02/21 [History Last Taken 10/13/21] cephalexin 500 mg capsule 500 mg PO Q6 #40 caps 09/11/21 [Rx Last Taken 10/14/21 09:30] clindamycin HCl 150 mg capsule 300 mg PO 4X/DAY #56 caps 10/02/21 [Rx Last Taken 10/14/21 09:30] hydrocodone-acetaminophen 5-325mg 5mg-325mg 1 tab PO Q6H PRN pain 3 days #12 tabs 10/02/21 [Rx Last Taken 10/14/21] Allergy/AdvReac Type Severity Reaction Status Date / Time Sulfa (Sulfonamide Allergy Anaphylaxis Verified 10/14/21 10:12 Antibiotics) sulfur dioxide Allergy Anaphylaxis Verified 10/14/21 10:12 Family History Grandmother Diabetes Mother Heart disease Surgical History H/O right heart catheterization History of cataract surgery History of coronary artery stent placement (02/24/17) Tubal ligation status Social History Smoking Status: Former smoker how long ago did patient quit smokin alcohol intake: former year quit: 1999 substance use type: does not use caffeine: Yes Type: carbonated beverages and tea ROS Constitutional Constitutional: Reports fatigue, malaise and weakness; Denies anorexia, body ach e(s), fever(s) or night sweats Eyes Eyes: Denies blindness, diplopia or eye pain ENT HEENT: Denies dysphagia, nasal congestion, nasal discharge or sore throat Cardiovascular Cardiovascular: Denies chest pain, claudication or lightheadedness Respiratory/Chest Respiratory/Chest: Denies chest congestion, cough or hemoptysis Gastrointestinal Gastrointestinal: Denies constipation, diarrhea, nausea or vomiting Genitourinary Genitourinary: Denies burning urination, dysuria, urinary frequency or urinary urgency Musculoskeletal Musculoskeletal: Denies joint pain, joint stiffness or joint swelling Integumentary Integumentary: Denies lesions, pruritus or rash Neurologic Neurologic: Denies confusion, dizziness, numbness or seizures Endocrine Endocrinology: Denies cold intolerance, heat intolerance, polydipsia or polyphagia Hematologic/Lymphatic Hematologic/Lymphatic: Reports easy bleeding and easy bruising Physical Exam Const alert, oriented x3 and no apparent distress General Appearance: comfortable and anxious HEENT normocephalic Eyes General Eye: normal appearance of both eyes Neck General: normal visual inspection Lymph Lymphatic: no lymphadenopathy noted and lymphedema mild Lymphatic Narrative: Bilateral lower extremity Resp normal respiratory effort Cardio regular rate and regular rhythm Extremity normal capillary refill, no joint enlargement and no calf tenderness Extremity Narrative: Right foot: DP and PT pulses weakly palpable. Capillary fill time less than 5 seconds to the digits. Webspaces are clean dry and intact. Skin is mildly xerotic, shiny, thin/atrophic. Mild nonpitting edema noted to the lower extremity with localized rubor to the anterior aspect of the tibia consistent with chronic venous insufficiency. There is also lymphedema noted. Left foot: DP and PT pulses weakly palpable. Cap fill time less than 5 seconds to the digit. Webspaces are clean dry and intact. There is diffuse nonpitting edema noted to the dorsal aspect of the foot. There is erythema of the Left hallux extending proximally to the first metatarsal head dorsally. There is mild nonpitting edema noted to the lower extremity with localized rubor to the anterior aspect of the tibia consistent with chronic venous insufficiency. There is also lymphedema noted. Skin no rashes or lesions noted, skin turgor normal and no jaundice General Skin Exam: erythema Wound Narrative: Left lower extremity: Left heel decubitus ulceration Clark stage II. Ulcerative site demonstrates slight localized erythema about the heel with no purulent drainage, no malodor, no palpable fluctuance, no bogginess, no visible abscess or other localized signs of infection. Ulcerative base demonstrates thickened yellow fibrotic tissue. Left hallux dorsomedial wound noted with overlying eschar and subdermal hemorrhaging/ecchymosis about the distal digit extending to the IPJ. Scant amount of watery purulent drainage was expressed from the dorsal medial aspect. No malodor noted. No palpable fluctuance, visible abscess, no bogginess noted to the hallux. There is a slight amount of erythema about the hallux extending proximally just past the first metatarsal head. There is also peeling skin noted about the hallux. Neuro oriented x3 and moves all extremities Lab / Micro Data Result Diagrams: 10/14/21 10:45 10/14/21 10:45 Labs: Laboratory Results - last 24 hr 10/14/21 10:45: WBC 18.7 H, RBC 2.46 L, Hgb 7.0 L, Hct 23.2 L, MCV 94.3, MCH 28.5, MCHC 30.2 L, RDW Std Deviation 53.5 H, RDW Coeff of Magen 15.4 H, Plt Count 180, MPV 9.9, Immature Gran % (Auto) 0.600, Neut % (Auto) 90.5 H, Lymph % (Auto) 3.5 L, [place] % (Auto) 4.9, Eos % (Auto) 0.3, Baso % (Auto) 0.2, Absolute Neuts (auto) 16.9 H, Absolute Lymphs (auto) 0.66 L, Nucleated RBC % 0 10/14/21 10:45: Sodium 141, Potassium 3.6, Chloride 110 H, Carbon Dioxide 26.0, Anion Gap 5, BUN 29 H, Creatinine 1.56 H, Estim Creat Clear Calc 32.35, Est GFR (MDRD) Af Amer 43 L, Est GFR (MDRD) Non-Af 35 L, BUN/Creatinine Ratio 18.6, Glucose 122 H, Calcium 8.8, Total Bilirubin 0.70, AST 24, ALT 33, Alkaline Phosphatase 125 H, Total Protein 6.4, Albumin 2.3 L, Globulin 4.1, Albumin/Globulin Ratio 0.6 L 10/14/21 10:45: Lactic Acid 1.3 10/14/21 10:45: Retic Count 3.15 H, Immature Retic Fraction 21.00 H, Retic Hgb Equivalent 18.5 L 10/14/21 10:45: Iron 15 L, TIBC 229 L, Iron Saturation 6.6 L, Ferritin 420 H 10/14/21 14:30: S.aureus Protein A PCR NEGATIVE, MRSA (PCR) Negative 10/14/21 16:00: Blood Type O NEGATIVE, Antibody Screen NEGATIVE, Crossmatch See Detail 10/14/21 16:01: POC Glucose 84 Radiology Impression Foot X-Ray 10/14/21 10:50 IMPRESSION: Nondisplaced fracture along the distal portion of the proximal phalanx of the great toe. Soft tissue swelling. Electronically Signed: Butch Ling MD at 11:07 EDT , Hip/Pelvis X-Ray 10/14/21 10:50 IMPRESSION: Mild degree of degenerative changes of the left hip joint. Electronically Signed: Butch Ling MD at 11:08 EDT ,
--- NOTE | 2021-10-14 20:41 | ART_ITS ---
[id number] VL^LEAS^Lower Ext Art Exam w/o Exercis [id number] Reason For Study: DECREASED PEDAL PULSES Procedure A bilateral lower extremity continuous wave Doppler with analog waveform analysis,segmental pressures,and ankle brachial indexes without exercise. PT UNABLE TO TOLERATE PRESSURES ABOVE THE KNEE AND AT THIGH. Left Segmental Pressures Left posterior tibial artery = >255mmHg. Left dorsalis pedis artery = >255mmHg. The left posterior tibial artery waveforms are biphasic. The left dorsalis pedis waveforms are absent. Able to hear a pulse in DP however due to toes twitches even when held unable to show a conclusive waveform. Right Segmental Pressures Right brachial= 150mmHg. Right posterior tibial artery = >255mmHg. Right dorsalis pedis artery = >255mmHg. The right posterior tibial artery waveforms are monophasic. The right dorsalis pedis waveforms are biphasic. Indices PT REFUSED TOE PRESSURES on RIGHT TOE. PT REFUSED TOE PRESSURES on LEFTTOE. VL/Lower Ext Art Exam w/o Exercis Interpretation Summary Monophasic and biphasic Doppler waveforms are noted at ankle level on the right . Biphasic Doppler waveforms and absent waveforms are noted at ankle level on the left. Pulse-volu me recordings appear diminished at digital level on the left. Resting ankle-brachial indices are sup ra-normal bilaterally. Digital-brachial indices were not determined due to patient non-co operation. There is evidence of arterial calcification at ankle level bilaterally (atheros clerosis). There is a suggestion of arterial occlusive disease bilaterally, though quantification is difficult due to arterial calcification and patient non-cooperation. Clinical correlation is adv ised. Ordering Physician: Noah No Referring Physician: MONTANA PETIT MD Performed By: Peyton Shaw RVT, RDCS
[2021-10-14] MEDS: Ipratropium/Albuterol Sulfate 3 ML AMPUL.NEB INHALATION (21:43)
[2021-10-14] MEDS: Budesonide Respules 0.5 MG/2 ML AMPUL.NEB. INHALATION (21:43)
[2021-10-14] MEDS: LORazepam 1 MG Tablet PO (22:42)
[2021-10-14] MEDS: Paroxetine 20 MG Tablet 60 MG PO (22:42)
[2021-10-14] MEDS: traZODone 100 MG Tablet PO (22:43)
[2021-10-14] MEDS: Carvedilol 6.25 MG Tablet PO (22:43)
[2021-10-14 23:41] LABS: Bedside Glucose 98 mg/dL (74-106)
[2021-10-15] VITALS (18 sets, daily range): BP systolic 118–158; BP diastolic 61–117; PULSE 84–118; RESP 12–38; TEMP 36.1–37.1; O2SAT 90–100
[2021-10-15] MEDS: HYDROcodone Bitartrate/Apap 5/325 Tablet PO ×2 (03:15→08:53)
[2021-10-15] MEDS: Gabapentin 100 MG Capsule PO ×3 (06:28→20:57)
[2021-10-15] MEDS: Levothyroxine 88 MCG Tablet PO (06:28)
[2021-10-15 06:30] LABS: Absolute Lymphocyte Count 0.61 X10^3/uL (0.83-4.51); Absolute Neutrophil Count 7.9 X10^3/uL (2.0-7.7); Basophil# 0.03 X10^3/uL; Basophil% 0.3 % (0-1); Eosinophil# 0.04 X10^3/uL; Eosinophils% 0.4 % (0-5); Hematocrit 22.2 % (37-47); Hemoglobin 6.8 g/dL (12.0-15.0); Lymphocyte # 0.61 X10^3/ul (0.83-4.51); Lymphocyte % 6.7 % (19-41); Mean Corp Hgb Conc 30.6 g/dL (32-36); Mean Corpuscular Hgb 29.2 pg (27.0-32.0); Mean Corpuscular Volume 95.3 fL (81-99); Mean Platelet Vol. 10.3 fl (6.2-12.0); Monocyte# 0.61 X10^3/uL; Monocyte% 6.7 % (0-10); NRBC Flagged by Analyzer 0 % (0-5); Neutrophil # 7.86 X10^3/uL (2.7-7.7); Neutrophil % 85.7 % (47-70); Platelet Count 168 K/mm3 (150-450); RBC Distribution Width CV 15.4 % (11.6-14.6); Red Blood Count 2.33 M/mm3 (4.2-5.4); White Blood Count 9.2 K/mm3 (4.4-11.0)
[2021-10-15 07:06] LABS: Bedside Glucose 136 mg/dL (74-106)
[2021-10-15] MEDS: Ipratropium/Albuterol Sulfate 3 ML AMPUL.NEB INHALATION ×5 (07:25→22:47)
[2021-10-15] MEDS: Budesonide Respules 0.5 MG/2 ML AMPUL.NEB. INHALATION ×2 (07:25→19:42)
[2021-10-15 07:44] LABS: ALB/GLOB Ratio 0.6 RATIO (0.9-2.4); AST(SGOT) 32 U/L (15-37); Alanine Aminotransfer ALT/SGPT 34 U/L (13-56); Albumin, Serum 2.3 g/dL (3.2-5.0); Alkaline Phosphatase 126 U/L (45-117); Anion Gap 10 (5-15); BUN 36 mg/dL (7-18); BUN/Creat Ratio 21.1 RATIO (10-20); Calcium,Total 8.8 mg/dL (8.5-10.1); Chloride 109 mmol/L (98-107); Creatinine, Serum 1.71 mg/dL (0.55-1.02); EST Glomerular Filtration Rate 32 mL/min (>60); Est Glom Filt Rate - Afr Amer 39 mL/min (>60); Estimated Creatinine Clearance 29.51 ml/min; Globulin 4.1 g/dL (2.2-4.2); Glucose 148 mg/dL (74-106); Potassium 4.2 mmol/L (3.5-5.1); Protein, Total 6.4 g/dL (6.4-8.2); Sodium Level 140 mmol/L (136-145)
--- NOTE | 2021-10-15 08:06 | PN.HOSP_ITS ---
Subjective Subjective Follow-up on left chronic foot ulcers: Patient seen and examined. Patient complains of shortness of breath with wh eezing. Patient's stool for occult blood was positive. Hemoglobin this morning 6.8. She is being transfused 1 unit of packed RBC. Objective Data Objective Data Vital Signs: Vital Signs Temp Pulse Resp BP Pulse Ox O2 Del Method O2 Flow Rate 98.6 F 95 20 H 132/61 H 97 Nasal Cannula 3 10/15/21 03:13 10/15/21 03:13 10/15/21 03:13 10/15/21 03:13 10/15/21 03:13 10/15/21 03:24 10/15/21 03:14 Oxygen Flow Rate (L/min) 3 Oxygen Delivery Method Nasal Cannula Weight: 106.6 kg Body Mass Index (BMI) 39.1 Intake & Output: Intake and Output for Last 24 Hours 10/13/21 10/14/21 10/15/21 23:59 23:59 23:59 Intake Total 1235 / 1235 815 / 815 Output Total 300 / 300 150 / 150 Balance 935 / 935 665 / 665 Lab / Micro Data Result Diagrams: 10/15/21 12:10 10/15/21 05:45 Labs: Laboratory Results - last 24 hr 10/14/21 10:45: WBC 18.7 H, RBC 2.46 L, Hgb 7.0 L, Hct 23.2 L, MCV 94.3, MCH 2 8.5, MCHC 30.2 L, RDW Std Deviation 53.5 H, RDW Coeff of Magen 15.4 H, Plt Count 180, MPV 9.9, Immature Gran % (Auto) 0.600, Neut % (Auto) 90.5 H, Lymph % (Auto) 3.5 L, Hand % (Auto) 4.9, Eos % (Auto) 0.3, Baso % (Auto) 0.2, Absolute Neuts (auto) 16.9 H, Absolute Lymphs (auto) 0.66 L, Nucleated RBC % 0 10/14/21 10:45: Sodium 141, Potassium 3.6, Chloride 110 H, Carbon Dioxide 26.0, Anion Gap 5, BUN 29 H, Creatinine 1.56 H, Estim Creat Clear Calc 32.35, Est GFR (MDRD) Af Amer 43 L, Est GFR (MDRD) Non-Af 35 L, BUN/Creatinine Ratio 18.6, Glucose 122 H, Calcium 8.8, Total Bilirubin 0.70, AST 24, ALT 33, Alkaline Phosphatase 125 H, Total Protein 6.4, Albumin 2.3 L, Globulin 4.1, Albumin/Globulin Ratio 0.6 L 10/14/21 10:45: Lactic Acid 1.3 10/14/21 10:45: Retic Count 3.15 H, Immature Retic Fraction 21.00 H, Retic Hgb Equivalent 18.5 L 10/14/21 10:45: Iron 15 L, TIBC 229 L, Iron Saturation 6.6 L, Ferritin 420 H 10/14/21 14:30: S.aureus Protein A PCR NEGATIVE, MRSA (PCR) Negative 10/14/21 16:00: Blood Type O NEGATIVE, Antibody Screen NEGATIVE, Crossmatch See Detail 10/14/21 16:01: POC Glucose 84 10/14/21 22:38: POC Glucose 98 10/15/21 05:45: WBC 9.2, RBC 2.33 L, Hgb 6.8 L, Hct 22.2 L, MCV 95.3, MCH 29.2, MCHC 30.6 L, RDW Std Deviation 54.0 H, RDW Coeff of Magen 15.4 H, Plt Count 168, MPV 10.3, Immature Gran % (Auto) 0.200, Neut % (Auto) 85.7 H, Lymph % (Auto) 6.7 L, Hand % (Auto) 6.7, Eos % (Auto) 0.4, Baso % (Auto) 0.3, Absolute Neuts (auto) 7.9 H, Absolute Lymphs (auto) 0.61 L, Nucleated RBC % 0 10/15/21 05:45: Sodium 140, Potassium 4.2, Chloride 109 H, Carbon Dioxide 21.0, Anion Gap 10, BUN 36 H, Creatinine 1.71 H, Estim Creat Clear Calc 29.51, Est GFR (MDRD) Af Amer 39 L, Est GFR (MDRD) Non-Af 32 L, BUN/Creatinine Ratio 21.1 H, Glucose 148 H, Calcium 8.8, Total Bilirubin 1.00, AST 32, ALT 34, Alkaline Phosphatase 126 H, Total Protein 6.4, Albumin 2.3 L, Globulin 4.1, A lbumin/Globulin Ratio 0.6 L 10/15/21 06:22: POC Glucose 136 H Micro: Microbiology 10/15/21 06:17 Stool Stool Occult Blood (JARRETT) - Final Occult Blood Positive Radiography Diagnostic Testing: Radiology Impression Foot X-Ray 10/14/21 10:50 IMPRESSION: Nondisplaced fracture along the distal portion of the proximal phalanx of the great toe. Soft tissue swelling. Electronically Signed: Butch Ling MD at 11:07 EDT , Hip/Pelvis X-Ray 10/14/21 10:50 IMPRESSION: Mild degree of degenerative changes of the left hip joint. Electronically Signed: Butch Ling MD at 11:08 EDT , Physical Exam Narrative Physical exam: General: Alert, Oriented x3, Cooperative, in moderate respiratory distress with audible breathing, on 4 L of oxygen HEENT: Atraumatic Oral: Moist Mucosa Neck: Supple Lungs: Diminished to auscultation, wheezes++ Cardiovascular: HS I+II, regular, no murmurs Abdomen: Bowel Sounds Present, Soft, Non Tender Extremities: Left foot in gauze, bilateral pedal edema trace/+1 Skin: No rashes, No breakdown Neurological: Grossly intact Psych/Mental Status: Appropriate Assessment & Plan Assessment/Plan (1) Diabetic foot ulcers: PLAN: Plan 1. Acute on chronic severe anemia, likely secondary to acute GI bleed Hemoglobin 6.8, being transfused point of packed RBC. Transfuse a second unit of packed RBC, H&H every 6h 2. Acute GI bleed, stool for occult blood is positive, patient is on aspirin Hold aspirin, IV PPI, GI consult 3. Acute on chronic worsening left foot ulcers?heel and great toe ulcers Status post bedside wound debridement on 10/14/21 Patient is a diabetic with peripheral neuropathy X-ray of the foot showed nondisplaced fracture of the proximal phalanx Wound cultures growing gram-negative marita Continue on IV vancomycin and Zosyn Wound RN, podiatry consulted, follow-up on culture Follow-up on MARY ordered 2. Type II DM complicated by peripheral neuropathy, blood glucose is fairly controlled Continue his current Lantus 37 units nightly as well as insulin sliding scale with blood glucose checks 3. Chronic hypoxic respiratory failure/pulmonary hypertension on 4 L of oxygen Remains on same 4 L, continue budesonide, DuoNeb scheduled, albuterol as needed 4. Hypertension/Hyperlipidemia/CAD/chronic heart failure preserved EF/anxiety/depression Continue on amlodipine, Coreg, levothyroxine, Paxil, trazodone, bupropion 5. Hypothyroidism, continue on Synthroid 6. DVT prophylaxis - Heparin SC Charges/Coding Visit Charges Inpatient E&M: 87410 Subs Hosp L2
[2021-10-15] MEDS: 0.9% Saline Lock 10 ML Syringe IV ×6 (08:48→18:23)
[2021-10-15] MEDS: amLODIPine 10 MG Tablet PO (08:48)
[2021-10-15] MEDS: Fluticasone 0.05% 1 SPRAY NASAL.SRY NASAL (08:48)
[2021-10-15] MEDS: buPROPion (XL) 300 MG TABLET.XL PO (08:48)
[2021-10-15] MEDS: Juven (unflavored) Packet 1 PACKET PO (08:48)
[2021-10-15] MEDS: Cholecalciferol (VIT D3) 25 MCG TABLET (1,000 UNITS) 50 MCG PO (08:48)
[2021-10-15] MEDS: Montelukast 10 MG Tablet PO (08:48)
[2021-10-15] MEDS: Carvedilol 6.25 MG Tablet PO ×2 (08:48→20:57)
--- NOTE | 2021-10-15 09:35 | RAD_ITS ---
STUDY: X-RAY CHEST REASON FOR EXAM: Female, 66 years old. SOB TECHNIQUE: Single AP portable view of the chest. COMPARISON: 09/02/2020 FINDINGS: Poor inspiration with some bibasilar atelectasis. There is no demonstrated pleural abnormality. There is moderate cardiac enlargement. Normal mediastinum and sol. Normal visualized pulmonary arteries. Normal visualized aortic arch and descending thoracic aorta. Normal visualized thoracic spine. Normal visualized ribs, clavicles, and shoulders. There is no demonstrated abnormality of the visualized soft tissue structures of the upper abdomen. RAD/Chest 1 View (Portable) IMPRESSION: Poor inspiration with some bibasilar atelectasis. Electronically Signed: Gil Bolton MD at 9:56 EDT ,
[2021-10-15] MEDS: Furosemide 20 MG/2 ML VIAL IV ×2 (09:49→11:03)
--- NOTE | 2021-10-15 10:55 | PCM.CONS.GEN ---
Assessment & Plan Assessment/Plan (1) Anemia: PLAN: Acute anemia in the setting of iron deficiency anemia. Differential diagnosis does include peptic ulcer disease secondary to nonsteroidals with poor nutrition secondary to osteomyelitis and diabetes mellitus. Also different diagnosis could be gastritis, portal gastropathy, neoplasia, telangiectasia, angiodysplasia. Recommend an upper and lower endoscopy and possible capsule endoscopy. She was explained alternatives, risk, benefits including not withstanding bleeding, infection, sepsis, perforation, need for emergent surgery . Should have an ASA of 3. HPI Consult Data Date of Consult: 10/15/21 HPI Narrative Reason for Consultation: anemia HPI Narrative: SONA WILSON, is a 66 F who presents from assisted living. Patient presents with left heel and great toe pain, she has a chronic wound on both.? She has not seen podiatry yet.? She has no fevers or chills, she has no streaking, she has no other signs of infection. She has history of chronic respiratory failure with hypoxia on home oxygen therapy, COPD, DM type II with peripheral polyneuropathy, history of falls, decubitus ulceration of the left heel Clark stage III, and a nonpressure ulceration to the dorsomedial left hallux.? She is identified as having osteomyelitis of the left heel and toe. She is status post treatment on antibiotic therapy. She takes aspirin at baseline. When she came into the hospital she was just over to have an eye anemia. Her iron studies were checked and she was discovered to have iron deficiency anemia. Her stools were checked for blood and there were positive. I was called for consultation regarding the patient's anemia. She says that she is never had a colonoscopy. All other 16 review of systems are negative except as pertinent positive mentioned HPI. [facility] Medical History Acute cervical myofascial strain Acute on chronic respiratory failure with hypoxemia Asthma Atherosclerotic heart disease of [place] coronary artery without angina pectoris Chronic heart failure with preserved ejection fraction (HFpEF) Chronic ulcer of great toe of left foot Closed head injury Congestive heart failure (CHF) COPD (chronic obstructive pulmonary disease) Decubitus ulcer of left heel, stage 3 Decubitus ulcer, heel, left, unstageable Depression Diabetes type 2, controlled Diverticulitis Essential hypertension Former smoker History of non-ST elevation myocardial infarction (NSTEMI) (02/24/17) Hyperlipidemia Hypothyroid Myocardial infarct Non-rheumatic tricuspid valve insufficiency Nonrheumatic mitral (valve) insufficiency Obesity Obstructive sleep apnea On home O2 Secondary pulmonary arterial hypertension Type 2 diabetes mellitus Home Medications bupropion HCl 300 mg 24 hr tablet, extended release 300 mg PO QHS depression 09/02/20 [History Last Taken 10/13/21] cholecalciferol (vitamin D3) 50 mcg (2,000 unit) capsule (Vitamin D3) 50 mcg PO DAILY supplement 09/02/20 [History Last Taken 10/14/21 09:30] fluticasone furoate 100 mcg-vilanterol 25 mcg/dose inhalation powder (Breo Ellipta) 1 inh inhalation DAILY breathing 09/02/20 [History Last Taken 10/14/21] fluticasone propionate 50 mcg/actuation nasal spray,suspension 1 spray intranasal DAILY PRN allergies 09/02/20 [History Last Taken 09/02/20] furosemide 80 mg tablet 80 mg PO DAILY water pill 09/02/20 [History Last Taken 10/14/21] levothyroxine 88 mcg tablet 88 mcg PO DAILY thyroid 09/02/20 [History Last Taken 10/14/21] lorazepam 1 mg tablet 1 mg PO QHS anxiety 09/02/20 [History Last Taken 10/13/21] montelukast 10 mg tablet 10 mg PO DAILY allergies 09/02/20 [History Last Taken 10/14/21] trazodone 100 mg tablet 100 mg PO QHS sleep 09/02/20 [History Last Taken 10/13/21] carvedilol 6.25 mg tablet 6.25 mg PO BID #60 tabs 01/06/21 [Rx Last Taken 10/14/21 09:30] atorvastatin 80 mg tablet 80 mg PO QHS #30 tabs 04/08/21 [Rx Last Taken 10/14/21 09:30] aspirin 81 mg tablet,delayed release (Adult Aspirin Regimen) 81 mg PO DAILY heart 05/17/21 [History Last Taken 10/14/21 09:30] amlodipine 10 mg tablet 10 mg PO DAILY bp 08/25/21 [History Last Taken 10/14/21 09:30] gabapentin 100 mg capsule (Neurontin) 100 mg PO TID nerve pain 08/25/21 [History Last Taken 10/14/21] dulaglutide 0.75 mg/0.5 mL subcutaneous pen injector (Trulicity) 0.75 mg subcut QWEEK dm 09/02/21 [History Last Taken 10/10/21] insulin detemir U-100 100 unit/mL (3 mL) subcutaneous pen 37 unit subcut QHS blood sugar 09/02/21 [History Last Taken 10/13/21] insulin lispro 100 unit/mL subcutaneous pen See Protocol subcut QACHS blood sugar 09/02/21 [History Last Taken 10/14/21] ipratropium 0.5 mg-albuterol 3 mg (2.5 mg base)/3 mL nebulization soln 3 ml inhalation BID PRN sob 09/02/21 [History Last Taken Unknown] meloxicam 7.5 mg tablet 7.5 mg PO DAILY pain 09/02/21 [History Last Taken 10/14/21] paroxetine HCl 30 mg tablet 60 mg PO QHS mental health 09/02/21 [History Last Taken 10/13/21] cephalexin 500 mg capsule 500 mg PO Q6 #40 caps 09/11/21 [Rx Last Taken 10/14/21 09:30] clindamycin HCl 150 mg capsule 300 mg PO 4X/DAY #56 caps 10/02/21 [Rx Last Taken 10/14/21 09:30] hydrocodone-acetaminophen 5-325mg 5mg-325mg 1 tab PO Q6H PRN pain 3 days #12 tabs 10/02/21 [Rx Last Taken 10/14/21] Allergy/AdvReac Type Severity Reaction Status Date / Time Sulfa (Sulfonamide Allergy Anaphylaxis Verified 10/14/21 10:12 Antibiotics) sulfur dioxide Allergy Anaphylaxis Verified 10/14/21 10:12 Family History Grandmother Diabetes Mother Heart disease Surgical History H/O right heart catheterization History of cataract surgery History of coronary artery stent placement (02/24/17) Tubal ligation status Social History Smoking Status: Former smoker how long ago did patient quit smokin alcohol intake: former year quit: 1999 substance use type: does not use caffeine: Yes Type: carbonated beverages and tea ROS Constitutional Constitutional: Reports fatigue, malaise and weakness; Denies anorexia, body ache(s), fever(s) or night sweats Eyes Eyes: Denies blindness, diplopia or eye pain ENT HEENT: Denies dysphagia, nasal congestion, nasal discharge or sore throat Cardiovascular Cardiovascular: Denies chest pain, claudication or lightheadedness Respiratory/Chest Respiratory/Chest: Denies chest congestion, cough or hemoptysis Gastrointestinal Gastrointestinal: Denies constipation, diarrhea, nausea or vomiting Genitourinary Genitourinary: Denies burning urination, dysuria, urinary frequency or urinary urgency Musculoskeletal Musculoskeletal: Denies joint pain, joint stiffness or joint swelling Integumentary Integumentary: Denies lesions, pruritus or rash Neurologic Neurologic: Denies confusion, dizziness, numbness or seizures Endocrine Endocrinology: Denies cold intolerance, heat intolerance, polydipsia or polyphagia Hematologic/Lymphatic Hematologic/Lymphatic: Reports easy bleeding and easy bruising Physical Exam Const alert, oriented x3 and no apparent distress General Appearance: comfortable and anxious HEENT normocephalic Eyes General Eye: normal appearance of both eyes Neck General: normal visual inspection Lymph Lymphatic: no lymphadenopathy noted and lymphedema mild Lymphatic Narrative: Bilateral lower extremity Resp normal respiratory effort Cardio regular rate and regular rhythm Extremity normal capillary refill, no joint enlargement and no calf tenderness Extremity Narrative: Right foot: DP and PT pulses weakly palpable. Capillary fill time less than 5 seconds to the digits. Webspaces are clean dry and intact. Skin is mildly xerotic, shiny, thin/atrophic. Mild nonpitting edema noted to the lower extremity with localized rubor to the anterior aspect of the tibia consistent with chronic venous insufficiency. There is also lymphedema noted. Left foot: DP and PT pulses weakly palpable. Cap fill time less than 5 seconds to the digit. Webspaces are clean dry and intact. There is diffuse nonpitting edema noted to the dorsal aspect of the foot. There is erythema of the Left hallux extending proximally to the first metatarsal head dorsally. There is mild nonpitting edema noted to the lower extremity with localized rubor to the anterior aspect of the tibia consistent with chronic venous insufficiency. There is also lymphedema noted. Skin no rashes or lesions noted, skin turgor normal and no jaundice General Skin Exam: erythema Wound Narrative: Left lower extremity: Left heel decubitus ulceration Clark stage II. Ulcerative site demonstrates slight localized erythema about the heel with no purulent drainage, no malodor, no palpable fluctuance, no bogginess, no visible abscess or other localized signs of infection. Ulcerative base demonstrates thickened yellow fibrotic tissue. Left hallux dorsomedial wound noted with overlying eschar and subdermal hemorrhaging/ecchymosis about the distal digit extending to the IPJ. Scant amount of watery purulent drainage was expressed from the dorsal medial aspect. No malodor noted. No palpable fluctuance, visible abscess, no bogginess noted to the hallux. There is a slight amount of erythema about the hallux extending proximally just past the first metatarsal head. There is also peeling skin noted about the hallux. Neuro oriented x3 and moves all extremities Lab / Micro Data Result Diagrams: 10/15/21 05:45 10/15/21 05:45 Labs: Laboratory Results - last 24 hr 10/14/21 10:45: WBC 18.7 H, RBC 2.46 L, Hgb 7.0 L, Hct 23.2 L, MCV 94.3, MCH 28.5, MCHC 30.2 L, RDW Std Deviation 53.5 H, RDW Coeff of Magen 15.4 H, Plt Count 180, MPV 9.9, Immature Gran % (Auto) 0.600, Neut % (Auto) 90.5 H, Lymph % (Auto) 3.5 L, [place] % (Auto) 4.9, Eos % (Auto) 0.3, Baso % (Auto) 0.2, Absolute Neuts (auto) 16.9 H, Absolute Lymphs (auto) 0.66 L, Nucleated RBC % 0 10/14/21 10:45: Sodium 141, Potassium 3.6, Chloride 110 H, Carbon Dioxide 26.0, Anion Gap 5, BUN 29 H, Creatinine 1.56 H, Estim Creat Clear Calc 32.35, Est GFR (MDRD) Af Amer 43 L, Est GFR (MDRD) Non-Af 35 L, BUN/Creatinine Ratio 18.6, Glucose 122 H, Calcium 8.8, Total Bilirubin 0.70, AST 24, ALT 33, Alkaline Phosphatase 125 H, Total Protein 6.4, Albumin 2.3 L, Globulin 4.1, Albumin/Globulin Ratio 0.6 L 10/14/21 10:45: Lactic Acid 1.3 10/14/21 10:45: Retic Count 3.15 H, Immature Retic Fraction 21.00 H, Retic Hgb Equivalent 18.5 L 10/14/21 10:45: Iron 15 L, TIBC 229 L, Iron Saturation 6.6 L, Ferritin 420 H 10/14/21 14:30: S.aureus Protein A PCR NEGATIVE, MRSA (PCR) Negative 10/14/21 16:00: Blood Type O NEGATIVE, Antibody Screen NEGATIVE, Crossmatch See Detail 10/14/21 16:01: POC Glucose 84 10/14/21 22:38: POC Glucose 98 10/15/21 05:45: WBC 9.2, RBC 2.33 L, Hgb 6.8 L, Hct 22.2 L, MCV 95.3, MCH 29.2, MCHC 30.6 L, RDW Std Deviation 54.0 H, RDW Coeff of Magen 15.4 H, Plt Count 168, MPV 10.3, Immature Gran % (Auto) 0.200, Neut % (Auto) 85.7 H, Lymph % (Auto) 6.7 L, [place] % (Auto) 6.7, Eos % (Auto) 0.4, Baso % (Auto) 0.3, Absolute Neuts (auto) 7.9 H, Absolute Lymphs (auto) 0.61 L, Nucleated RBC % 0 10/15/21 05:45: Sodium 140, Potassium 4.2, Chloride 109 H, Carbon Dioxide 21.0, Anion Gap 10, BUN 36 H, Creatinine 1.71 H, Estim Creat Clear Calc 29.51, Est GFR (MDRD) Af Amer 39 L, Est GFR (MDRD) Non-Af 32 L, BUN/Creatinine Ratio 21.1 H, Glucose 148 H, Calcium 8.8, Total Bilirubin 1.00, AST 32, ALT 34, Alkaline Phosphatase 126 H, Total Protein 6.4, Albumin 2.3 L, Globulin 4.1, Albumin/Globulin Ratio 0.6 L 10/15/21 06:22: POC Glucose 136 H Micro: Microbiology 10/15/21 06:17 Stool Stool Occult Blood (JARRETT) - Final Occult Blood Positive Radiology Impression Foot X-Ray 10/14/21 10:50 IMPRESSION: Nondisplaced fracture along the distal portion of the proximal phalanx of the great toe. Soft tissue swelling. Electronically Signed: Butch Ling MD at 11:07 EDT , Hip/Pelvis X-Ray 10/14/21 10:50 IMPRESSION: Mild degree of degenerative changes of the left hip joint. Electronically Signed: Butch Ling MD at 11:08 EDT , Chest X-Ray 10/15/21 09:35 IMPRESSION: Poor inspiration with some bibasilar atelectasis. Electronically Signed: Gil Bolton MD at 9:56 EDT , Charges/Coding Visit Charges Inpatient E&M: 70476 Init Hosp L2
--- NOTE | 2021-10-15 11:43 | CASEMGMT ---
Addendum entered by Erin Galo 10/15/21 13:31: CHRISTELLE WHEELER notified that pt would like to return back to [facility]. Noted pt has wound care daily. TC to [facility], spoke with Geovanna, she states that [facility] has a HHC that a nurse could see pt for through [facility]. She states upon dc, pt would need a rx sent and they will set this up. CHRISTELLE WHEELER in to pt room, pt dtr and her boyfriend is present. Discussed HHC with patient and patient states she would be agreeable to [facility]. Discussed for HHC that she would need an able and willing cg to do dressing change on days HHC was not there. Pt dtr states she does not think she can do this. Made her aware that she could be taught if she wanted to be. Discussed with patient how she did not follow up with regarding her wounds or . Pt states that way my neglect. Pt is currently NWB. Pt states she feels it would be best to go to SNF. She states the doctor mentioned TCU and she wants to know if that is an option. Updated SW who will check on this. Original Note: CHRISTELLE WHEELER in to pt room, pt states she has oxygen through [employer] at 3L at rest and 4L with exertion.
[2021-10-15 12:01] LABS: Bedside Glucose 193 mg/dL (74-106)
[2021-10-15 12:24] LABS: Hematocrit 25.5 % (37-47); Hemoglobin 7.8 g/dL (12.0-15.0)
[2021-10-15] MEDS: Bisacodyl 5 MG Tablet 20 MG PO (12:54)
--- NOTE | 2021-10-15 15:19 | CM.ED ---
GREG Note GREG called [facility]. Per staff at [facility] patient can return at discharge from hospital. GREG spoke to patient briefly. She wants to return to [facility] at discharge. RN LIAM spoke to patient and her daughter. They are interested in TCU at discharge if SNF is needed. GREG texted [facility] and inquired if they take [facility], patient's insurance. [facility] indicated that TCU takes [facility] insurance. GREG provided list of SNF's to patient for her review. GREG sent email to [facility] regarding patient's interest in TCU at discharge. Christianne BLAKC
[2021-10-15] MEDS: Ondansetron 4 MG/2 ML Vial IV (16:27)
[2021-10-15] MEDS: Furosemide 40 MG/4 ML Vial IV (16:27)
[2021-10-15] MEDS: Insulin Lispro 100 UNIT/ML INSULN.PEN SC ×2 (16:54→20:54)
[2021-10-15] MEDS: Polyethylene Glycol 3350 BOWEL PREP PO (16:55)
[2021-10-15 17:05] LABS: Bedside Glucose 215 mg/dL (74-106)
[2021-10-15] MEDS: MethylPREDNISolone 125 MG/2 ML Vial IV (18:23)
--- NOTE | 2021-10-15 18:30 | NURSING ---
Pt transferring to PCU d/t first time bipap use. Report called to CHRISTELLE Lomax.
[2021-10-15] MEDS: Insulin Glargine-YFGN 100 UNIT/ML Pen 37 UNIT SC (20:54)
[2021-10-15] MEDS: Atorvastatin Calcium 80 MG Tablet PO (20:57)
[2021-10-15] MEDS: Paroxetine 20 MG Tablet 60 MG PO (20:57)
[2021-10-15] MEDS: traZODone 100 MG Tablet PO (20:57)
[2021-10-15 22:06] LABS: Bedside Glucose 218 mg/dL (74-106)
[2021-10-16] VITALS (18 sets, daily range): BP systolic 138–163; BP diastolic 67–87; PULSE 78–108; RESP 12–21; TEMP 36.5–37; O2SAT 92–99
[2021-10-16 01:56] LABS: Absolute Lymphocyte Count 0.41 X10^3/uL (0.83-4.51); Absolute Neutrophil Count 9.8 X10^3/uL (2.0-7.7); Basophil# 0.01 X10^3/uL; Basophil% 0.1 % (0-1); Hematocrit 27.8 % (37-47); Hemoglobin 8.8 g/dL (12.0-15.0); Lymphocyte # 0.41 X10^3/ul (0.83-4.51); Lymphocyte % 3.9 % (19-41); Mean Corp Hgb Conc 31.7 g/dL (32-36); Mean Corpuscular Hgb 29.1 pg (27.0-32.0); Mean Corpuscular Volume 92.1 fL (81-99); Mean Platelet Vol. 9.9 fl (6.2-12.0); Monocyte# 0.14 X10^3/uL; Monocyte% 1.3 % (0-10); NRBC Flagged by Analyzer 0 % (0-5); Neutrophil # 9.84 X10^3/uL (2.7-7.7); Neutrophil % 94.3 % (47-70); POSITIVE DIFFERENTIAL YES; Platelet Count 163 K/mm3 (150-450); RBC Distribution Width CV 15.1 % (11.6-14.6); RBC Distribution Width SD 50.9 fl (35.1-43.9); Red Blood Count 3.02 M/mm3 (4.2-5.4); White Blood Count 10.4 K/mm3 (4.4-11.0)
[2021-10-16 02:08] LABS: ALB/GLOB Ratio 0.5 RATIO (0.9-2.4); AST(SGOT) 17 U/L (15-37); Alanine Aminotransfer ALT/SGPT 29 U/L (13-56); Albumin, Serum 2.2 g/dL (3.2-5.0); Alkaline Phosphatase 113 U/L (45-117); Anion Gap 9 (5-15); BUN 46 mg/dL (7-18); Calcium,Total 9.2 mg/dL (8.5-10.1); Chloride 110 mmol/L (98-107); Creatinine, Serum 1.77 mg/dL (0.55-1.02); EST Glomerular Filtration Rate 31 mL/min (>60); Est Glom Filt Rate - Afr Amer 37 mL/min (>60); Estimated Creatinine Clearance 28.51 ml/min; Globulin 4.3 g/dL (2.2-4.2); Glucose 242 mg/dL (74-106); Protein, Total 6.5 g/dL (6.4-8.2); Sodium Level 140 mmol/L (136-145)
[2021-10-16 02:24] LABS: Differential Indicated SCAN CRITERIA MET
[2021-10-16 02:39] LABS: Anisocytosis 1+
[2021-10-16 02:54] LABS: Vancomycin, Trough Level 21.6 ug/mL (5.0-15.0)
--- NOTE | 2021-10-16 03:30 | PCM.RX.CS ---
Consult Pharmacy has been consulted to manage selected antiobiotic: Vancomycin Type of Consult: Follow-up Suspected Infection: Skin/Soft tissue Prior Doses of Antibiotics Received/Current Regimen: Medications Discontinued Medications Vancomycin HCl 750 mg/ Sodium (Chloride) 265 mls @ 250 mls/hr IV Q12H DHAVAL Last Admin: 10/15/21 14:06 Dose: Infused Labs: Sodium 140 mmol/L (136-145) 10/16/21 01:45 Potassium 4.0 mmol/L (3.5-5.1) 10/16/21 01:45 Chloride 110 mmol/L (98-107) H 10/16/21 01:45 Carbon Dioxide 21.0 mmol/L (21.0-32.0) 10/16/21 01:45 Anion Gap 9 (5-15) 10/16/21 01:45 BUN 46 mg/dL (7-18) H 10/16/21 01:45 Creatinine 1.77 mg/dL (0.55-1.02) H 10/16/21 01:45 Est GFR (MDRD) Af Amer 37 mL/min (>60) L 10/16/21 01:45 Est GFR (MDRD) Non-Af 31 mL/min (>60) L 10/16/21 01:45 BUN/Creatinine Ratio 26.0 RATIO (10-20) H 10/16/21 01:45 Glucose 242 mg/dL (74-106) H 10/16/21 01:45 Vancomycin Trough 21.6 ug/mL (5.0-15.0) H 10/16/21 01:45 Microbiology: Microbiology 10/14/21 12:35 Blood Culture (Wb) - Anticubital Left Blood Culture - Preliminary 10/14/21 14:30 Wound - Toe Gram Stain - Final 10/14/21 14:30 Wound - Toe Wound Culture - Preliminary Gram negative marita 10/15/21 06:17 Stool Stool Occult Blood (JARRETT) - Final Occult Blood Positive Weight used for dosin.6 kg Estimated Creatinine Clearance: 38(by ABW) Goal Trough: 15-20 mcg/mL Pharmacy Plan for Drug Dosing: Vancomycin trough level was drawn at 12.75hrs post dose. It was high at 21.6. Not surprisingly the SCr had also raised from 1.56 to 1.77. The current vanco dose was held. A random level will be drawn in 12 hours, and further dosing will be determined from that result. Pharmacy Service will continue to monitor and adjust dosing as required. Follow-Up Labs: Trough Vancomycin - random Labs to be done on [date and time ordered]: 10/16/21 @1330 - random
[2021-10-16] MEDS: Levothyroxine 88 MCG Tablet PO (05:16)
[2021-10-16] MEDS: Gabapentin 100 MG Capsule PO ×3 (05:17→22:19)
[2021-10-16] MEDS: Insulin Lispro 100 UNIT/ML INSULN.PEN SC ×4 (06:38→22:27)
[2021-10-16 07:10] LABS: Bedside Glucose 243 mg/dL (74-106)
[2021-10-16] MEDS: Ipratropium/Albuterol Sulfate 3 ML AMPUL.NEB INHALATION ×4 (07:44→19:26)
[2021-10-16] MEDS: Budesonide Respules 0.5 MG/2 ML AMPUL.NEB. INHALATION ×2 (07:44→19:26)
--- NOTE | 2021-10-16 08:15 | RAD_ITS ---
STUDY: X-RAY CHEST REASON FOR EXAM: Female, 66 years old. SOB TECHNIQUE: Single AP portable view of the chest. COMPARISON: September 02, 2020 FINDINGS: There are mild perihilar and lower lung increased opacities. There is no demonstrated pleural abnormality. There is mild cardiac enlargement. Normal mediastinum and sol. Normal visualized pulmonary arteries. Normal visualized aortic arch and descending thoracic aorta. There are diffuse degenerative changes of the visualized thoracic spine. Normal visualized ribs, clavicles, and shoulders. There is no demonstrated abnormality of the visualized soft tissue structures of the upper abdomen. RAD/Chest 1 View (Portable) IMPRESSION: Bilateral edema or pneumonia. Electronically Signed: Jerzy Cabello MD at 9:03 EDT ,
[2021-10-16] MEDS: Juven (unflavored) Packet 1 PACKET PO ×2 (09:23→17:38)
[2021-10-16] MEDS: Carvedilol 6.25 MG Tablet PO ×2 (09:24→22:12)
[2021-10-16] MEDS: Fluticasone 0.05% 1 SPRAY NASAL.SRY NASAL (09:24)
[2021-10-16] MEDS: Furosemide 40 MG/4 ML Vial IV ×2 (09:25→17:40)
[2021-10-16] MEDS: amLODIPine 10 MG Tablet PO (09:25)
[2021-10-16] MEDS: Montelukast 10 MG Tablet PO (09:26)
[2021-10-16] MEDS: Cholecalciferol (VIT D3) 25 MCG TABLET (1,000 UNITS) 50 MCG PO (09:26)
[2021-10-16] MEDS: buPROPion (XL) 300 MG TABLET.XL PO (09:26)
[2021-10-16] MEDS: HYDROcodone Bitartrate/Apap 5/325 Tablet PO ×3 (10:34→23:02)
--- NOTE | 2021-10-16 11:40 | PCM.PROGNOTE ---
Subjective Subjective This is a 66-year-old female who is seen bedside today for follow-up of chronic ulcerations of the left foot. Her daughter and son are present in room today. She states that she is feeling better today and is starting to get hungry. She does report some wheezing and difficulty breathing on Sunday and this morning. She denies any constitutional symptoms. She has no further complaints today. Objective Data Objective Data Vital Signs: Vital Signs Temp Pulse Resp BP Pulse Ox O2 Del Method O2 Flow Rate 98.6 F 97 18 145/69 H 98 Nasal Cannula 9 10/16/21 09:10 10/16/21 11:05 10/16/21 10:42 10/16/21 09:10 10/16/21 10:00 10/16/21 10:45 10/16/21 10:45 FiO2 50 10/16/21 07:45 Oxygen Flow Rate (L/min) 9 Oxygen Delivery Method Nasal Cannula Weight: 106.6 kg Body Mass Index (BMI) 39.1 Intake & Output: Intake and Output for Last 24 Hours 10/14/21 10/15/21 10/16/21 23:59 23:59 23:59 Intake Total 1235 / 1235 3600 / 3650 380 / 380 Output Total 300 / 300 150 / 150 Balance 935 / 935 3450 / 3500 380 / 380 Lab / Micro Data Result Diagrams: 10/16/21 01:45 10/16/21 01:45 Labs: Laboratory Results - last 24 hr 10/14/21 16:00: Blood Type O NEGATIVE, Antibody Screen NEGATIVE, Crossmatch See Detail 10/15/21 11:02: POC Glucose 193 H 10/15/21 12:10: Hgb 7.8 L, Hct 25.5 L 10/15/21 16:47: POC Glucose 215 H 10/15/21 20:52: POC Glucose 218 H 10/16/21 01:45: Vancomycin Trough 21.6 H 10/16/21 01:45: WBC 10.4, RBC 3.02 L, Hgb 8.8 L, Hct 27.8 L, MCV 92.1, MCH 29.1, MCHC 31.7 L, RDW Std Deviation 50.9 H, RDW Coeff of Magen 15.1 H, Plt Count 163, MPV 9.9, Immature Gran % (Auto) 0.400, Neut % (Auto) 94.3 H, Lymph % (Auto) 3.9 L, [place] % (Auto) 1.3, Eos % (Auto) 0.0, Baso % (Auto) 0.1, Absolute Neuts (auto) 9.8 H, Absolute Lymphs (auto) 0.41 L, Nucleated RBC % 0, Anisocytosis 1+ 10/16/21 01:45: Sodium 140, Potassium 4.0, Chloride 110 H, Carbon Dioxide 21.0, Anion Gap 9, BUN 46 H, Creatinine 1.77 H, Estim Creat Clear Calc 28.51, Est GFR (MDRD) Af Amer 37 L, Est GFR (MDRD) Non-Af 31 L, BUN/Creatinine Ratio 26.0 H, Glucose 242 H, Calcium 9.2, Total Bilirubin 1.20 H, AST 17, ALT 29, Alkaline Phosphatase 113, Total Protein 6.5, Albumin 2.2 L, Globulin 4.3 H, Albumin/Globulin Ratio 0.5 L 10/16/21 06:37: POC Glucose 243 H Micro: Microbiology 10/14/21 12:35 Blood Culture (Wb) - Anticubital Left Blood Culture - Preliminary Gram negative marita 10/16/21 09:50 Nasal Secretion SARS-CoV-2 Antigen (Rapid) - Final 10/14/21 14:30 Wound - Toe Gram Stain - Final 10/14/21 14:30 Wound - Toe Wound Culture - Final Proteus mirabilis 10/15/21 06:17 Stool Stool Occult Blood (JARRETT) - Final Occult Blood Positive Radiography Diagnostic Testing: Radiology Impression Chest X-Ray 10/16/21 08:15 IMPRESSION: Bilateral edema or pneumonia. Electronically Signed: Jerzy Cabello MD at 9:03 EDT , Physical Exam Const alert, oriented x3 and no apparent distress General Appearance: comfortable and anxious HEENT normocephalic Eyes General Eye: normal appearance of both eyes Neck General: normal visual inspection Lymph Lymphatic: no lymphadenopathy noted and lymphedema mild Lymphatic Narrative: Bilateral lower extremity Resp normal respiratory effort Resp Narrative: On oxygen Cardio regular rate and regular rhythm Extremity normal capillary refill, no joint enlargement and no calf tenderness Extremity Narrative: Right foot: DP and PT pulses weakly palpable. Capillary fill time less than 5 seconds to the digits. Webspaces are clean dry and intact. Skin is mildly xerotic, shiny, thin/atrophic. Mild nonpitting edema noted to the lower extremity with localized rubor to the anterior aspect of the tibia consistent with chronic venous insufficiency. There is also lymphedema noted. Left foot: DP and PT pulses weakly palpable. Cap fill time less than 5 seconds to the digit. Webspaces are clean dry and intact. There is diffuse nonpitting edema noted to the dorsal aspect of the foot, this is improving. There is erythema of the Left hallux extending proximally to the first metatarsal head dorsally which is decreasing. There is mild nonpitting edema noted to the lower extremity with localized rubor to the anterior aspect of the tibia consistent with chronic venous insufficiency. There is also lymphedema noted. Skin no rashes or lesions noted, skin turgor normal and no jaundice Wound Narrative: Left lower extremity: Left heel decubitus ulceration Clark stage II. Ulcerative site demonstrates slight localized erythema about the heel with no purulent drainage, no malodor, no palpable fluctuance, no bogginess, no visible abscess or other localized signs of infection. Ulcerative base demonstrates thickened yellow fibrotic tissue. Left hallux dorsomedial wound noted with subdermal hemorrhaging/ecchymosis about the dorsal and medial hallux extending to the IPJ. No purulent drainage expressible. No malodor noted. No palpable fluctuance, visible abscess, no bogginess noted to the hallux. There is a slight amount of erythema about the hallux extending proximally just past the first metatarsal head. There is also peeling skin noted about the hallux. 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 Nursing reports she had difficulty breathing on Sunday and was placed on BiPAP with oxygen. This morning she is improving and they are decreasing oxygen however she is still wheezy and fatigued. Left lower extremity Wounds: Left heel decubitus ulceration Clark stage II. Ulcerative site demonstrates slight localized erythema about the heel with no purulent drainage, no malodor, no palpable fluctuance, no bogginess, no visible abscess or other localized signs of infection. Ulcerative base demonstrates thickened yellow fibrotic tissue. Ulceration site measures 1.5 cm x 1.5 cm x 0.1 cm. Left hallux dorsomedial wound noted with subdermal hemorrhaging/ecchymosis about the dorsal and medial hallux digit extending to the IPJ. This wound site measures 1.8 cm x 2 cm x 0.1 cm. No purulent drainage expressible from the dorsal medial aspect today. No malodor noted. No palpable fluctuance, visible abscess, no bogginess noted to the hallux. Erythema has decreased. There is also peeling skin noted about the hallux. She underwent bedside debridement of the left hallux on 10/14/2021. Site was again reexamined however there is significantly more ecchymosis about the hallux today secondary to her fracture of the distal phalanx. Dressing: Betadine soaked Adaptic, 4 x 4 gauze, ABD to the heel, Kerlix, Kenny wrap lightly rolled onto the foot. Nursing to perform dressing changes daily. May reinforce for strikethrough. Apply Santyl to left heel daily with wet to dry gauze. Edema/offload: She is to elevate lower extremity at all times of rest with pillow under the lower leg to elevate the heel off the bed. She may be weightbearing to the foot with the assistance of a walker for bathroom privileges. Vascular: DP and PT pulses were weakly palpable, capillary fill time is less than 5 seconds to the digits. Orders have been placed for lower extremity arterial studies of bilateral lower extremities, results pending Infection: Blood cultures obtained 10/14/2021 demonstrate Proteus Mirabilis. Wound cultures obtained 10/14/2021 demonstrate Proteus Mirabilis. Staff aureus protein A PCR was negative. MRSA PCR negative. Her erythema about the hallux and first MPJ has decreased however she demonstrates significantly more ecchymosis today secondary to her fracture of the distal phalanx. WBC decreased and is currently at 10.4. She is currently on IV Vanco/Zosyn. Radiographs: Radiographic images of the left foot obtained 10/14/2021 demonstrate nondisplaced fracture of the distal phalanx of the hallux secondary to her fall earlier today. There is also nonspecific edema about the dorsal aspect of the foot. Pain: She may take hydrocodone-acetaminophen as needed for pain Host factors: DM type II with peripheral polyneuropathy, chronic venous insufficiency bilaterally, lymphedema bilaterally Medicine following for medical management, this is greatly appreciated GI specialist is currently following and plans to perform scope to further evaluate for bleeding. Discussed with nursing scope is to be planned for 10/17/2021. Podiatry will continue to follow for local wound care. Podiatric surgical intervention not anticipated at this present time. She has responded well to the IV antibiotics and debridement performed. I have also discussed returning to the wound care center following discharge to continue with local wound care. I discussed with her and her family today that we will continue to perform local wound care in attempts to get her left hallux wounds to heal, however if she fails to progress in healing status and poses continued infection risk or risk of osteomyelitis we can discuss amputation of the left hallux in outpatient setting. Her family would like her to be placed in a nursing home facility for continued care following her discharge. Please do not hesitate to call for any questions or concerns Jr. Abelino Morgan.P.M. [facility] [phone] Note: [employer] speech recognition highway commissioner software was used to create portions of this document. Sound-alike and misspelled words, as well as other highway commissioner errors may be contained in the documentation.
[2021-10-16 12:31] LABS: Bedside Glucose 259 mg/dL (74-106)
[2021-10-16 13:40] LABS: Vancomycin, Random Level 18.3 ug/mL (0.0-15.0)
[2021-10-16] MEDS: Menthol/Lanolin/Calamine/Znox 113 GM Tube 1 APPLIC TOPICAL ×2 (14:26→22:19)
--- NOTE | 2021-10-16 14:47 | PCM.RX.CS ---
Consult Type of Consult: Follow-up Labs: Sodium 140 mmol/L (136-145) 10/16/21 01:45 Potassium 4.0 mmol/L (3.5-5.1) 10/16/21 01:45 Chloride 110 mmol/L (98-107) H 10/16/21 01:45 Carbon Dioxide 21.0 mmol/L (21.0-32.0) 10/16/21 01:45 Anion Gap 9 (5-15) 10/16/21 01:45 BUN 46 mg/dL (7-18) H 10/16/21 01:45 Creatinine 1.77 mg/dL (0.55-1.02) H 10/16/21 01:45 Est GFR (MDRD) Af Amer 37 mL/min (>60) L 10/16/21 01:45 Est GFR (MDRD) Non-Af 31 mL/min (>60) L 10/16/21 01:45 BUN/Creatinine Ratio 26.0 RATIO (10-20) H 10/16/21 01:45 Glucose 242 mg/dL (74-106) H 10/16/21 01:45 Vancomycin Trough 21.6 ug/mL (5.0-15.0) H 10/16/21 01:45 Random Vancomycin 18.3 ug/mL (0.0-15.0) H 10/16/21 12:57 Microbiology: Microbiology 10/14/21 12:46 Blood Culture (Wb) - Anticubital Right Blood Culture - Preliminary No growth in 48 hours. 10/14/21 12:35 Blood Culture (Wb) - Anticubital Left Blood Culture - Preliminary Gram negative marita 10/16/21 09:50 Nasal Secretion SARS-CoV-2 Antigen (Rapid) - Final 10/14/21 14:30 Wound - Toe Gram Stain - Final 10/14/21 14:30 Wound - Toe Wound Culture - Final Proteus mirabilis 10/15/21 06:17 Stool Stool Occult Blood (JARRETT) - Final Occult Blood Positive Goal Trough: 15-20 mcg/mL Pharmacy Plan for Drug Dosing: VANCOMYCIN LEVEL RECEIVED Current Vancomycin Dose: ON HOLD- Last dose given was 750mg IV 10/15 @1301 Number of Doses Received: dosing ON HOLD Vancomycin Level: 18.3 Hours Since Last Dose: 24hr Renal Function: 1.77 Renal Function Trend: slight worsening from admitting labs Lab/Micro: Preliminary cultures growing proteus, Cx not finalized Vancomycin Plan/Comments: Patient had a random level drawn which resulted in a value of 18.3 (Goal 15-20). Since trough is within goal range, will resume patient on vancomycin dosing. Will start 1000mg IV Q24hr 10/16/21 @1600. Pending Level: 10/18/21 @1530, prior to 3rd dose of new regimen. Pharmacy Service will continue to monitor and adjust dosing as required.
--- NOTE | 2021-10-16 14:52 | PN.HOSP_ITS ---
Subjective Subjective Follow-up on acute hypoxic respiratory failure/left foot ulcers Patient seen and examined.? Patient developed acute hypoxic respiratory failure yesterday, requiring use of BiPAP. She was continued on IV Lasix and started on IV Solu-Medrol for acute CHF and COPD exacerbation. She is currently on 8 L of oxygen. She stated that she feels much improved. Denied any fever or chills. Objective Data Objective Data Vital Signs: Vital Signs Temp Pulse Resp BP Pulse Ox O2 Del Method O2 Flow Rate 98.6 F 97 18 145/69 H 98 Nasal Cannula 8 10/16/21 09:10 10/16/21 11:05 10/16/21 10:42 10/16/21 09:10 10/16/21 10:00 10/16/21 14:35 10/16/21 14:35 FiO2 50 10/16/21 07:45 Oxygen Flow Rate (L/min) 8 Oxygen Delivery Method Nasal Cannula Weight: 106.6 kg Body Mass Index (BMI) 39.1 Intake & Output: Intake and Output for Last 24 Hours 10/14/21 10/15/21 10/16/21 23:59 23:59 23:59 Intake Total 1235 / 1235 3600 / 3650 880 / 880 Output Total 300 / 300 150 / 150 150 / 150 Balance 935 / 935 3450 / 3500 730 / 730 Lab / Micro Data Result Diagrams: 10/16/21 01:45 10/16/21 01:45 Labs: Laboratory Results - last 24 hr 10/14/21 16:00: Blood Type O NEGATIVE, Antibody Screen NEGATIVE, Crossmatch See Detail 10/15/21 16:47: POC Glucose 215 H 10/15/21 20:52: POC Glucose 218 H 10/16/21 01:45: Vancomycin Trough 21.6 H 10/16/21 01:45: WBC 10.4, RBC 3.02 L, Hgb 8.8 L, Hct 27.8 L, MCV 92.1, MCH 29.1, MCHC 31.7 L, RDW Std Deviation 50.9 H, RDW Coeff of Magen 15.1 H, Plt Count 163, MPV 9.9, Immature Gran % (Auto) 0.400, Neut % (Auto) 94.3 H, Lymph % (Auto) 3.9 L, [place] % (Auto) 1.3, Eos % (Auto) 0.0, Baso % (Auto) 0.1, Absolute Neuts (auto) 9.8 H, Absolute Lymphs (auto) 0.41 L, Nucleated RBC % 0, Anisocytosis 1+ 10/16/21 01:45: Sodium 140, Potassium 4.0, Chloride 110 H, Carbon Dioxide 21.0, Anion Gap 9, BUN 46 H, Creatinine 1.77 H, Estim Creat Clear Calc 28.51, Est GFR (MDRD) Af Amer 37 L, Est GFR (MDRD) Non-Af 31 L, BUN/Creatinine Ratio 26.0 H, Glucose 242 H, Calcium 9.2, Total Bilirubin 1.20 H, AST 17, ALT 29, Alkaline Phosphatase 113, Total Protein 6.5, Albumin 2.2 L, Globulin 4.3 H, Albumin/Globulin Ratio 0.5 L 10/16/21 06:37: POC Glucose 243 H 10/16/21 11:36: POC Glucose 259 H 10/16/21 12:57: Random Vancomycin 18.3 H Micro: Microbiology 10/14/21 12:46 Blood Culture (Wb) - Anticubital Right Blood Culture - Preliminary No growth in 48 hours. 10/14/21 12:35 Blood Culture (Wb) - Anticubital Left Blood Culture - Preliminary Gram negative marita 10/16/21 09:50 Nasal Secretion SARS-CoV-2 Antigen (Rapid) - Final 10/14/21 14:30 Wound - Toe Gram Stain - Final 10/14/21 14:30 Wound - Toe Wound Culture - Final Proteus mirabilis 10/15/21 06:17 Stool Stool Occult Blood (JARRETT) - Final Occult Blood Positive Radiography Diagnostic Testing: Radiology Impression Chest X-Ray 10/16/21 08:15 IMPRESSION: Bilateral edema or pneumonia. Electronically Signed: Jerzy Cabello MD at 9:03 EDT , Physical Exam Narrative Physical exam: General: Alert, Oriented x3, Cooperative, on 8 L of oxygen HEENT: Atraumatic Oral: Moist Mucosa Neck: Supple Lungs: Diminished to auscultation, no wheezes heard Cardiovascular: HS I+II, regular, no murmurs Abdomen: Bowel Sounds Present, Soft, Non Tender Extremities: Left foot in gauze, bilateral pedal edema trace+1 Skin: No rashes, No breakdown Neurological: Grossly intact Psych/Mental Status: Appropriate Assessment & Plan Assessment/Plan (1) Diabetic foot ulcers: PLAN: Plan 1. Acute hypoxic respiratory failure secondary to acute COPD exacerbation/acute exacerbation of heart failure preserved EF Patient is not on oxygen at home, currently on 8 L of oxygen Chest x-ray showed bibasilar atelectasis/pulmonary edema She was on BiPAP yesterday Continue to wean off for SPO2 more than 92% 2. Acute COPD exacerbation, slowly improving, Continue on breathing treatment and IV steroids 3. Acute heart failure preserved EF, EF 60%, stage III diastolic dysfunction Continue on IV Lasix, CHF protocol 4. Acute on chronic severe anemia, likely secondary to acute GI bleed Hemoglobin 8.8, status post 2 units pRBC Repeat Hb in am 5. Acute GI bleed, stool for occult blood is positive, Continue to hold aspirin, IV PPI, GI consulted, EGD planned for tomorrow 6. Acute on chronic worsening left Proteus mirabilis foot ulcers?heel and great toe ulcers Status post bedside wound debridement on 10/14/21 Patient is a diabetic with peripheral neuropathy X-ray of the foot showed nondisplaced fracture of the proximal phalanx Wound cultures growing Proteus mirabilis, pansensitive will switch to IV ceftriaxone Wound RN, podiatry consulted, 7. Type II DM complicated by peripheral neuropathy, blood glucose is fairly controlled Continue his current Lantus 37 units nightly as well as insulin sliding scale with blood glucose checks 8. Hypertension/Hyperlipidemia/CAD/chronic heart failure preserved EF/anxiety /depression Continue on amlodipine, Coreg, levothyroxine, Paxil, trazodone, bupropion 9. Hypothyroidism, continue on Synthroid 10. DVT prophylaxis - SCDs on account of GI bleed Charges/Coding Visit Charges Inpatient E&M: 43272 Subs Hosp L2
[2021-10-16 17:10] LABS: Bedside Glucose 306 mg/dL (74-106)
--- NOTE | 2021-10-16 21:18 | PN_ITS ---
Subjective Subjective Patient's breathing is a little bit better today. She is a lot less lethargic than she was yesterday. Objective Data Objective Data Vital Signs: Vital Signs Temp Pulse Resp BP Pulse Ox O2 Del Method O2 Flow Rate 98.4 F 98 20 H 140/67 H 94 Nasal Cannula 10 10/16/21 16:05 10/16/21 19:24 10/16/21 19:24 10/16/21 16:05 10/16/21 16:05 10/16/21 20:00 10/16/21 20:00 FiO2 50 10/16/21 07:45 Oxygen Flow Rate (L/min) 10 Oxygen Delivery Method Nasal Cannula Weight: 235 lb 0.204 oz Body Mass Index (BMI) 39.1 Intake & Output: Intake and Output for Last 24 Hours 10/14/21 10/15/21 10/16/21 23:59 23:59 23:59 Intake Total 1235 / 1235 3600 / 3650 1257.5 / 1257.5 Output Total 300 / 300 150 / 150 150 / 150 Balance 935 / 935 3450 / 3500 1107.5 / 1107.5 Lab / Micro Data Result Diagrams: 10/16/21 01:45 10/16/21 01:45 Labs: Laboratory Results - last 24 hr 10/15/21 20:52: POC Glucose 218 H 10/16/21 01:45: Vancomycin Trough 21.6 H 10/16/21 01:45: WBC 10.4, RBC 3.02 L, Hgb 8.8 L, Hct 27.8 L, MCV 92.1, MCH 29.1, MCHC 31.7 L, RDW Std Deviation 50.9 H, RDW Coeff of Magen 15.1 H, Plt Count 163, MPV 9.9, Immature Gran % (Auto) 0.400, Neut % (Auto) 94.3 H, Lymph % (Auto) 3.9 L, [place] % (Auto) 1.3, Eos % (Auto) 0.0, Baso % (Auto) 0.1, Absolute Neuts (auto) 9.8 H, Absolute Lymphs (auto) 0.41 L, Nucleated RBC % 0, Anisocytosis 1+ 10/16/21 01:45: Sodium 140, Potassium 4.0, Chloride 110 H, Carbon Dioxide 21.0, Anion Gap 9, BUN 46 H, Creatinine 1.77 H, Estim Creat Clear Calc 28.51, Est GFR (MDRD) Af Amer 37 L, Est GFR (MDRD) Non-Af 31 L, BUN/Creatinine Ratio 26.0 H, Glucose 242 H, Calcium 9.2, Total Bilirubin 1.20 H, AST 17, ALT 29, Alkaline Phosphatase 113, Total Protein 6.5, Albumin 2.2 L, Globulin 4.3 H, Albumin/Globulin Ratio 0.5 L 10/16/21 06:37: POC Glucose 243 H 10/16/21 11:36: POC Glucose 259 H 10/16/21 12:57: Random Vancomycin 18.3 H 10/16/21 16:43: POC Glucose 306 H Micro: Microbiology 10/14/21 12:46 Blood Culture (Wb) - Anticubital Right Blood Culture - Preliminary No growth in 48 hours. 10/14/21 12:35 Blood Culture (Wb) - Anticubital Left Blood Culture - Preliminary Gram negative marita 10/16/21 09:50 Nasal Secretion SARS-CoV-2 Antigen (Rapid) - Final 10/14/21 14:30 Wound - Toe Gram Stain - Final 10/14/21 14:30 Wound - Toe Wound Culture - Final Proteus mirabilis 10/15/21 06:17 Stool Stool Occult Blood (JARRETT) - Final Occult Blood Positive Radiography Diagnostic Testing: Radiology Impression Chest X-Ray 10/16/21 08:15 IMPRESSION: Bilateral edema or pneumonia. Electronically Signed: Jerzy Cabello MD at 9:03 EDT Reading Location ID and State: [address] [place] [address] , Service support , Physical Exam Narrative Physical exam: General: Alert, Oriented x3, Cooperative, on 8 L of oxygen HEENT: Atraumatic Oral: Moist Mucosa Neck: Supple Lungs: Diminished to auscultation, no wheezes heard Cardiovascular: HS I+II, regular, no murmurs Abdomen: Bowel Sounds Present, Soft, Non Tender Extremities: Left foot in gauze, bilateral pedal edema trace+1 Skin: No rashes, No breakdown Neurological: Grossly intact Psych/Mental Status: Appropriate Assessment & Plan Assessment/Plan (1) Anemia: PLAN: Due to her decompensated respiratory status she is not safe enough to perform endoscopy on at this time. I will continue to follow her. Recommend Protonix to continue for prophylaxis for stress gastritis and possibly peptic ulcer disease. When she is medically stable then she can undergo endoscopy and possibly colonoscopy at the same time if she can tolerate the prep. Charges/Coding Visit Charges Inpatient E&M: 71220 Subs Hosp L2
[2021-10-16] MEDS: LORazepam 1 MG Tablet PO (22:11)
[2021-10-16] MEDS: Atorvastatin Calcium 80 MG Tablet PO (22:13)
[2021-10-16] MEDS: traZODone 100 MG Tablet PO (22:13)
[2021-10-16] MEDS: Paroxetine 20 MG Tablet 60 MG PO (22:18)
[2021-10-16] MEDS: Insulin Glargine-YFGN 100 UNIT/ML Pen 37 UNIT SC (22:20)
[2021-10-16] MEDS: Insulin Lispro 100 UNIT/ML INSULN.PEN 10 UNIT SC (22:28)
[2021-10-17] VITALS (27 sets, daily range): BP systolic 114–156; BP diastolic 54–128; PULSE 65–115; RESP 16–30; TEMP 36.2–36.8; O2SAT 86–99
[2021-10-17 00:21] LABS: Bedside Glucose 313 mg/dL (74-106)
--- NOTE | 2021-10-17 03:22 | CPS ---
PT DECLINED USE OF BIPAP TONIGHT.
[2021-10-17] MEDS: Levothyroxine 88 MCG Tablet PO (05:20)
[2021-10-17] MEDS: Gabapentin 100 MG Capsule PO ×3 (05:20→21:06)
[2021-10-17 06:50] LABS: Absolute Lymphocyte Count 0.55 X10^3/uL (0.83-4.51); Absolute Neutrophil Count 16.1 X10^3/uL (2.0-7.7); Basophil# 0.02 X10^3/uL; Basophil% 0.1 % (0-1); Hematocrit 27.6 % (37-47); Hemoglobin 8.9 g/dL (12.0-15.0); Lymphocyte # 0.55 X10^3/ul (0.83-4.51); Lymphocyte % 3.2 % (19-41); Mean Corp Hgb Conc 32.2 g/dL (32-36); Mean Corpuscular Hgb 29.3 pg (27.0-32.0); Mean Corpuscular Volume 90.8 fL (81-99); Mean Platelet Vol. 10.3 fl (6.2-12.0); Monocyte% 1.8 % (0-10); NRBC Flagged by Analyzer 0 % (0-5); Neutrophil # 16.08 X10^3/uL (2.7-7.7); Neutrophil % 94.3 % (47-70); POSITIVE DIFFERENTIAL YES; Platelet Count 178 K/mm3 (150-450); RBC Distribution Width CV 15.2 % (11.6-14.6); RBC Distribution Width SD 51.1 fl (35.1-43.9); Red Blood Count 3.04 M/mm3 (4.2-5.4); White Blood Count 17.1 K/mm3 (4.4-11.0)
[2021-10-17 06:55] LABS: Differential Indicated SCAN CRITERIA MET
[2021-10-17] MEDS: Budesonide Respules 0.5 MG/2 ML AMPUL.NEB. INHALATION ×2 (07:01→19:50)
[2021-10-17] MEDS: Ipratropium/Albuterol Sulfate 3 ML AMPUL.NEB INHALATION ×4 (07:02→19:50)
[2021-10-17 07:16] LABS: ALB/GLOB Ratio 0.5 RATIO (0.9-2.4); AST(SGOT) 20 U/L (15-37); Alanine Aminotransfer ALT/SGPT 31 U/L (13-56); Albumin, Serum 2.3 g/dL (3.2-5.0); Alkaline Phosphatase 113 U/L (45-117); Anion Gap 7 (5-15); BUN 66 mg/dL (7-18); BUN/Creat Ratio 33.7 RATIO (10-20); Calcium,Total 9.7 mg/dL (8.5-10.1); Chloride 110 mmol/L (98-107); Creatinine, Serum 1.96 mg/dL (0.55-1.02); EST Glomerular Filtration Rate 27 mL/min (>60); Est Glom Filt Rate - Afr Amer 33 mL/min (>60); Estimated Creatinine Clearance 25.75 ml/min; Globulin 4.2 g/dL (2.2-4.2); Glucose 302 mg/dL (74-106); Potassium 4.1 mmol/L (3.5-5.1); Protein, Total 6.5 g/dL (6.4-8.2); Sodium Level 140 mmol/L (136-145)
[2021-10-17] MEDS: Insulin Lispro 100 UNIT/ML INSULN.PEN 10 UNIT SC ×3 (07:47→23:26)
[2021-10-17] MEDS: Insulin Lispro 100 UNIT/ML INSULN.PEN SC ×4 (07:47→23:23)
[2021-10-17] MEDS: Menthol/Lanolin/Calamine/Znox 113 GM Tube 1 APPLIC TOPICAL ×2 (07:53→21:07)
[2021-10-17] MEDS: buPROPion (XL) 300 MG TABLET.XL PO (07:53)
[2021-10-17] MEDS: Juven (unflavored) Packet 1 PACKET PO ×2 (07:53→16:17)
[2021-10-17] MEDS: Carvedilol 6.25 MG Tablet PO ×2 (07:54→21:07)
[2021-10-17] MEDS: Cholecalciferol (VIT D3) 25 MCG TABLET (1,000 UNITS) 50 MCG PO (07:54)
[2021-10-17] MEDS: Fluticasone 0.05% 1 SPRAY NASAL.SRY NASAL (07:54)
[2021-10-17] MEDS: amLODIPine 10 MG Tablet PO (07:54)
[2021-10-17] MEDS: Furosemide 40 MG/4 ML Vial IV ×2 (07:54→18:12)
[2021-10-17] MEDS: Montelukast 10 MG Tablet PO (07:54)
[2021-10-17] MEDS: HYDROcodone Bitartrate/Apap 5/325 Tablet PO ×2 (08:06→18:12)
[2021-10-17 08:30] LABS: Bedside Glucose 261 mg/dL (74-106)
--- NOTE | 2021-10-17 09:44 | PN.HOSP_ITS ---
Documented by User: Cristina Garza NP-C 10/17/21 09:51 Subjective Subjective Seen and examined. Patient sitting in bed no distress noted. Patient states that she is feeling improved. Plan for patient to go for EGD and colonoscopy once patient's respiratory status has improved. Objective Data Objective Data Vital Signs: Vital Signs Temp Pulse Resp BP Pulse Ox O2 Del Method O2 Flow Rate 98.3 F 90 24 H 124/54 H 95 Nasal Cannula 9 10/17/21 06:46 10/17/21 07:01 10/17/21 07:01 10/17/21 06:46 10/17/21 07:06 10/17/21 08:10 10/17/21 08:10 FiO2 50 10/16/21 07:45 Oxygen Flow Rate (L/min) 9 Oxygen Delivery Method Nasal Cannula Weight: 235 lb 0.204 oz Body Mass Index (BMI) 39.1 Intake & Output: Intake and Output for Last 24 Hours 10/15/21 10/16/21 10/17/21 23:59 23:59 23:59 Intake Total 3600 / 3650 1367.5 / 1367.5 360 / 360 Output Total 150 / 150 400 / 400 0 / 0 Balance 3450 / 3500 967.5 / 967.5 360 / 360 Lab / Micro Data Result Diagrams: 10/17/21 06:25 10/17/21 06:25 Labs: Laboratory Results - last 24 hr 10/16/21 11:36: POC Glucose 259 H 10/16/21 12:57: Random Vancomycin 18.3 H 10/16/21 16:43: POC Glucose 306 H 10/16/21 22:23: POC Glucose 313 H 10/17/21 06:25: WBC 17.1 H, RBC 3.04 L, Hgb 8.9 L, Hct 27.6 L, MCV 90.8, MCH 29.3, MCHC 32.2, RDW Std Deviation 51.1 H, RDW Coeff of Magen 15.2 H, Plt Count 178, MPV 10.3, Immature Gran % (Auto) 0.600, Neut % (Auto) 94.3 H, Lymph % (Auto) 3.2 L, [place] % (Auto) 1.8, Eos % (Auto) 0.0, Baso % (Auto) 0.1, Absolute Neuts (auto) 16.1 H, Absolute Lymphs (auto) 0.55 L, Nucleated RBC % 0 10/17/21 06:25: Sodium 140, Potassium 4.1, Chloride 110 H, Carbon Dioxide 23.0, Anion Gap 7, BUN 66 H, Creatinine 1.96 H, Estim Creat Clear Calc 25.75, Est GFR (MDRD) Af Amer 33 L, Est GFR (MDRD) Non-Af 27 L, BUN/Creatinine Ratio 33.7 H, Gl ucose 302 H, Calcium 9.7, Total Bilirubin 0.90, AST 20, ALT 31, Alkaline Phosphatase 113, Total Protein 6.5, Albumin 2.3 L, Globulin 4.2, Albumin/Globulin Ratio 0.5 L 10/17/21 07:46: POC Glucose 261 H Micro: Microbiology 10/14/21 12:46 Blood Culture (Wb) - Anticubital Right Blood Culture - Preliminary No growth in 48 hours. 10/14/21 12:35 Blood Culture (Wb) - Anticubital Left Blood Culture - Preliminary Gram negative marita 10/16/21 09:50 Nasal Secretion SARS-CoV-2 Antigen (Rapid) - Final 10/14/21 14:30 Wound - Toe Gram Stain - Final 10/14/21 14:30 Wound - Toe Wound Culture - Final Proteus mirabilis 10/15/21 06:17 Stool Stool Occult Blood (JARRETT) - Final Occult Blood Positive Physical Exam Const alert, oriented x3 and no apparent distress HEENT head/scalp atraumatic, moist oral mucous membranes and oropharynx normal Eyes conjunctivae normal and no scleral icterus Neck no lymphadenopathy and supple Resp Effort and Inspection: able to speak in complete sentences and symmetric chest movement Auscultation: diminished lung sounds Cardio regular rate, regular rhythm, S1 normal heart sound and S2 normal heart sound GI normal to inspection, nondistended, normoactive bowel sounds, soft to palpation and non-tender Extremity normal to inspection General Extremity: edema bilateral lower extremity Details: mild Neuro oriented x3, moves all extremities, no focal motor deficits and no sensory deficits noted Sensorium / Orientation: awake and alert Psych affect normal Assessment & Plan Assessment/Plan (1) Decubitus ulcer of dorsum of foot, stage 2: (2) Anemia: PLAN: Plan 1. Acute hypoxic respiratory failure secondary to acute COPD exacerbation/acute exacerbation of heart failure with preserved EF -Patient currently on 9 L nasal cannula oxygen, on 3 to 4 L baseline -Continue breathing treatments -Continue IV steroids -Continue IV Lasix -Last echocardiogram demonstrates EF 60% 2. Acute on chronic anemia likely secondary to GI bleed -Hemoglobin 8.9 -Patient received 2 units packed red blood cells 10/14/2021, hemoglobin stable since -GI following, plan for EGD and possibly colonoscopy once patient's respiratory status has improved -Continue PPI -Hold aspirin 3. Worsening chronic left foot ulcers with positive Proteus -Patient had bedside wound debridement 10/14/2021 -X-ray demonstrates nondisplaced fracture of the proximal phalanx -Cultures positive for Proteus continue IV ceftriaxone -Wound nurse and podiatry following 4. Diabetes mellitus type 2 -Continue Lantus -Continue ACH S blood sugars with sliding scale insulin 5. Hypertension/hyperlipidemia/CAD -Continue amlodipine, Coreg -Vital signs per protocol 6. Hypothyroidism -Continue levothyroxine 7. Anxiety and depression -Continue Paxil, trazodone, bupropion DVT prophylaxis-SCDs This patient was seen by DEVON Phan under the supervision of Dr. Roberts. Documented by User: Dr. Augie Roberts MD 10/17/21 11:49 Objective Data Lab / Micro Data Result Diagrams: 10/17/21 06:25 10/17/21 06:25 Assessment & Plan Assessment/Plan (1) Decubitus ulcer of dorsum of foot, stage 2: (2) Anemia: Addt'l Comments This patient was seen in conjunction with DEVON Phan . I have independently interviewed and examined the patient and reviewed pertinent historical, laboratory, and other data. Please refer to DEVON Phan note for details of this patient's presentation, findings, and recommendations. I have reviewed DEVON Phan note and concur with documented findings . In brief, patient is a 66-year-old lady with multiple comorbidities including diabetes mellitus type 2 with peripheral neuropathy and chronic left foot ulcers who presented after bumping her left foot. Imaging studies obtained on admission demonstrated nondisplaced fracture of the proximal phalanx. Consultation was placed to podiatry patient underwent wound debridement on 10/14/2021. Patient hospital stay complicated by decompensated respiratory status. An assessment of acute hypoxic respiratory failure secondary to combination of COPD and CHF exacerbation made. Patient was also noted to be anemic consultation was placed to GI for possible endoscopic evaluation he was however felt patient was too unstable to undergo the procedure. Physical Examination: GENERAL: cooperative HEENT: Atraumatic; EYES; Anicteric, Normal Conjunctiva NECK; supple, normal thyroid, RESPIRATORY: Diminished to auscultation CARDIOVASCULAR: Regular S1 S2, GI: soft, normoactive bowel sounds, : No Renal angle tenderness; EXTREMITIES: No edema, no clubbing, MUSCULOSKELETAL: no muscle wasting NEURO: Awake; no lateralizing signs. SKIN: No Rash PSYCH; Flat affect Assessment: 1. Acute hypoxic respiratory failure 2. Acute COPD exacerbation 3. Acute congestive heart failure with preserved ejection fraction 4. Anemia secondary to anemia of chronic disorder 5. GI bleed 6. Left foot wound infection with Proteus mirabilis 7. Nondisplaced fracture along the distal portion of the proximal phalanx of the great toe. 8. Diabetes mellitus type 2 9. Coronary artery disease with previous non-STEMI and subsequent PCI with AILYN 10. Essential hypertension 11. Diabetic polyneuropathy 12. Hypothyroidism 13. Degenerative joint disease 14. Depression with anxiety 15. Chronic hypoxic respiratory failure on baseline home oxygen 16. DVT prophylaxis Recommendations: 1. I have discussed the results of my overview and impressions with the patient 2. Options for management were reviewed Total time spent by myself and the advanced practice practitioner evaluating patient, reviewing labs, subsequent management decisions, discussion with patient as well as other providers 40 minutes ( 25 of which was spent by myself) Charges/Coding Visit Charges Inpatient E&M: 78720 Subs Hosp L2
[2021-10-17] MEDS: Ceftriaxone 1 GM/50 ML BAG IV (09:46)
--- NOTE | 2021-10-17 10:05 | CASEMGMT ---
GREG spoke with Kaelyn in TCU. She received the referral. She will review patient and get back to GREG. Clare Kaufman MSW BROWN
--- NOTE | 2021-10-17 10:59 | CASEMGMT ---
GREG was informed by Kaelyn that TCU can accept patient. Patient will need insurance approval before she can go. GREG will notify patient. Plan: d/c to [facility] TCU pending patient being medically ready and insurance approval. Clare DASILVA
--- NOTE | 2021-10-17 11:27 | CASEMGMT ---
SW attempted to notify patient that TCU can accept her, but patient was sleeping. SW will try again in a little bit. Clare Kaufman TRACKMOBILE OPERATOR [facility]
[2021-10-17 11:41] LABS: Bedside Glucose 237 mg/dL (74-106)
--- NOTE | 2021-10-17 13:39 | CASEMGMT ---
SW met with patient. Introduced self and role at [facility]. SW let patient know that [facility] TCU can take her when she is ready. Patient asked SW to call her daughter Clover ([phone]). SW called Clover and let her know patient was accepted inT when ready for discharge. Plan: d/c to [facility] TCU pending patient being medically ready and pre-cert. Clare Kaufman SUPERVISOR GROVE [facility]
--- NOTE | 2021-10-17 13:54 | CASEMGMT ---
GREG called [facility] and notified [facility] that patient will be going to [facility] TCU for rehab at discharge. Clare DASILVA
[2021-10-17 16:40] LABS: Bedside Glucose 179 mg/dL (74-106)
--- NOTE | 2021-10-17 16:50 | EKG12_ITS ---
Test Reason : Blood Pressure : / mmHG Vent. Rate : 092 BPM Atrial Rate : 000 BPM P-R Int : 000 ms QRS Dur : 086 ms QT Int : 356 ms P-R-T Axes : 000 057 015 degrees QTc Int : 440 ms Atrial fibrillation Poor R wave progression Abnormal ECG Confirmed by HENRIETTA ROSS, [place] ([id number]), online content editor JASON PEREIRA ([id number]) on 10/19/2021 11:33:42 AM Referred By: BERNA Confirmed By:[place] SHRESTHA MD
--- NOTE | 2021-10-17 17:43 | VDLE_ITS ---
[id number] VL^VDU^Venous Duplex US - Ji Extrem [id number] Reason For Study: SOB RIGHT LEFT GSV is normal. GSV is normal. CFV is compressible, spontaneous, phasic, CFV is compressible, spontaneous, phasic, competent and demonstrates normal competent, and demonstrates normal augmentation. augmentation. FV is compressible, spontaneous, phasic, FV is compressible, spontaneous, phasic, competent and demonstrates normal competent and demonstrates normal augmentation. augmentation. POP V is compressible, spontaneous, phasic, POP V is compressible, spontaneous, phasic, competent and demonstrates normal competent and demonstrates normal augmentation. augmentation. T/P Trunk is compressible. T/P Trunk is compressible. PTV is compressible. PTV is compressible. RT PerV is compressible. LT PerV is compressible. Procedure This is a venous duplex using B-mode, color flow and spectral Doppler. Exam performed portable in patient room. The exam was of fair technical quality due to pt body habitus. A preliminary report was called and/or faxed to PCU charge lpn. VL/Venous Duplex US - Ji Extrem Interpretation Summary Deep veins of the lower extremities are bilaterally patent and compressible seg mentally. There is no evidence of deep vein thrombosis on either side. Valvular competence appears in tact within the proximal deep venous systems bilaterally. The great saphenous veins appear bila terally patent and compressible segmentally. Ordering Physician: Cristina Garza Performed By: Aydin Clnie, RVT
--- NOTE | 2021-10-17 17:43 | ECHOD_ITS ---
[id number] ECHO^ECHOD^Echo Complete [id number] Reason For Study: A. Fib Procedure This was a 2D Doppler, Color Flow transthoracic echocardiogram. The study was technically difficult. Exam performed portable in patient room. Left Ventricle Based upon the 2D echocardiographic and contrast enhanced images obtained there appears to be grossly normal left ventricular size, wall motion, and systolic function. The estimated ejection fraction is 55 %. Diastolic function is indeterminate. Right Ventricle Normal RV size. Normal systolic function. Atria The left atrium is mildly enlarged. Normal right atrium. No doppler evidence for ASD. Mitral Valve There is no mitral annular calcification. Mild focal mitral valve calcification of the anterior leaflet. The mitral valve chordae are thickened and/or calcified. Moderate (2+) mitral valve insufficiency. Tricuspid Valve Normal tricuspid valve. Moderate (2+) tricuspid valve insufficiency. Right ventricular systolic pressure estimated to be 55 mmHg. Aortic Valve Trisinus/trileaflet aortic valve. Normal aortic valve. Trivial aortic valve insufficiency. Pulmonic Valve The pulmonic valve is not well visualized. Trivial pulmonic valve insufficiency. Great Vessels Normal sized aortic root. Pericardium/Pleural No pericardial effusion. MMode/2D Measurements & Calculations RVDd: 3.6 cm LVIDd: 4.5 cm FS: 41.9 % IVSd: 0.99 cm LVIDs: 2.6 cm LVPWd: 1.0 cm ESV(MOD-sp4): 27.4 ml Ao root diam: 2.9 cm LAV(MOD-bp): 82.6 ml LAV(MOD-bp) Indexed: 39.0 ml/m2 LAV(MOD-sp2): 77.3 ml LAV(MOD-sp4): 78.4 ml SV(MOD-sp4): 54.5 ml SV(sp4-el): 55.2 ml LVAd ap4: 25.4 cm2 LVLd ap4: 6.7 cm EDV(MOD-sp4): 81.9 ml EDV(sp4-el): 81.5 ml LVAs ap4: 13.6 cm2 LVLs ap4: 6.0 cm ESV(sp4-el): 26.3 ml EF(MOD-sp4): 66.5 % EF(sp4-el): 67.7 % LA A4 area: 22.4 cm2 LA dimension(2D): 4.2 cm RA A4 area: 17.6 cm2 Doppler Measurements & Calculations MV E max jhon: 176.0 cm/sec Ao V2 max: 123.4 cm/sec LV V1 max P.2 mmHg Ao max P.1 mmHg LV V1 max: 89.2 cm/sec PA V2 max: 97.7 cm/sec TR max jhon: 359.0 cm/sec TR max P.6 mmHg ECHO/Echo Complete Interpretation Summary The study was technically difficult. Based upon the 2D echocardiographic and contrast enhanced images obtained there appears to be grossly normal left ventricular size, wall motion, and systolic function. The estimated ejection fraction is 55 %. The left atrium is mildly enlarged. Mild focal mitral valve calcification of the anterior leaflet. The mitral valve chordae are thickened and/or calcified. Moderate (2+) mitral valve insufficiency. Moderate (2+) tricuspid valve insufficiency. Trivial aortic valve insufficiency. Trivial pulmonic valve insufficiency. Right ventricular systolic pressure estimated to be 55 mmHg c/w pulmonary hyper tension. Diastolic function is indeterminate. Ordering Physician: Cristina Garza Referring Physician: Froy Gonzales Performed By: Nancy Squires RDCS
--- NOTE | 2021-10-17 17:46 | NM_ITS ---
CLINICAL: Female, 66 years old. Hypoxia NUCLEAR VENTILATION/PERFUSION - LUNG TECHNIQUE: The patient was administered 5.5 mCi of Tc MAA followed by a perfusion lung scan. The patient was administered 50 mCi of Tc DTPA aerosol followed by a ventilation lung scan. Comparison made to prior chest radiograph dated 10/16/2021.. FINDINGS: The pulmonary perfusion study demonstrates uniform perfusion throughout both lung ozuna. There are no demonstrated segmental or subsegmental perfusion defects There is central clumping of the inhalational agent suggestive of airway disease. There are no segmental or subsegmental ventilation abnormalities. NM/Lung Scan Vent/Perf IMPRESSION: Low probability of pulmonary embolism. Central clumping of the ventilatory agent suggestive of air way disease. Electronically Signed: Butch Ling MD at 12:07 EDT ,
--- NOTE | 2021-10-17 18:05 | PN_ITS ---
Subjective Subjective Patient says that her breathing is a lot better today. She still says that she does not feel that she can tolerate a prep at this time to find out the etiology of her acute blood loss anemia. Objective Data Objective Data Vital Signs: Vital Signs Temp Pulse Resp BP Pulse Ox O2 Del Method O2 Flow Rate 97.2 F L 90 20 H 135/64 H 94 Nasal Cannula 7 10/17/21 16:05 10/17/21 16:05 10/17/21 16:05 10/17/21 16:05 10/17/21 16:05 10/17/21 16:05 10/17/21 16:21 FiO2 50 10/16/21 07:45 Oxygen Flow Rate (L/min) 7 Oxygen Delivery Method Nasal Cannula Weight: 235 lb 0.204 oz Body Mass Index (BMI) 39.1 Intake & Output: Intake and Output for Last 24 Hours 10/15/21 10/16/21 10/17/21 23:59 23:59 23:59 Intake Total 3600 / 3650 1367.5 / 1367.5 560 / 560 Output Total 150 / 150 400 / 400 400 / 400 Balance 3450 / 3500 967.5 / 967.5 160 / 160 Lab / Micro Data Result Diagrams: 10/17/21 06:25 10/17/21 06:25 Labs: Laboratory Results - last 24 hr 10/16/21 22:23: POC Glucose 313 H 10/17/21 06:25: WBC 17.1 H, RBC 3.04 L, Hgb 8.9 L, Hct 27.6 L, MCV 90.8, MCH 29.3, MCHC 32.2, RDW Std Deviation 51.1 H, RDW Coeff of Magen 15.2 H, Plt Count 178, MPV 10.3, Immature Gran % (Auto) 0.600, Neut % (Auto) 94.3 H, Lymph % (Auto) 3.2 L, [place] % (Auto) 1.8, Eos % (Auto) 0.0, Baso % (Auto) 0.1, Absolute Neuts (auto) 16.1 H, Absolute Lymphs (auto) 0.55 L, Nucleated RBC % 0 10/17/21 06:25: Sodium 140, Potassium 4.1, Chloride 110 H, Carbon Dioxide 23.0, Anion Gap 7, BUN 66 H, Creatinine 1.96 H, Estim Creat Clear Calc 25.75, Est GFR (MDRD) Af Amer 33 L, Est GFR (MDRD) Non-Af 27 L, BUN/Creatinine Ratio 33.7 H, Glucose 302 H, Calcium 9.7, Total Bilirubin 0.90, AST 20, ALT 31, Alkaline Phosphatase 113, Total Protein 6.5, Albumin 2.3 L, Globulin 4.2, Albumin/Globulin Ratio 0.5 L 10/17/21 07:46: POC Glucose 261 H 10/17/21 11:17: POC Glucose 237 H 10/17/21 16:15: POC Glucose 179 H Micro: Microbiology 10/14/21 12:46 Blood Culture (Wb) - Anticubital Right Blood Culture - Preliminary No growth in 48 hours. 10/14/21 12:35 Blood Culture (Wb) - Anticubital Left Blood Culture - Preliminary Gram negative marita 10/16/21 09:50 Nasal Secretion SARS-CoV-2 Antigen (Rapid) - Final 10/14/21 14:30 Wound - Toe Gram Stain - Final 10/14/21 14:30 Wound - Toe Wound Culture - Final Proteus mirabilis 10/15/21 06:17 Stool Stool Occult Blood (JARRETT) - Final Occult Blood Positive Physical Exam Const alert, oriented x3 and no apparent distress HEENT head/scalp atraumatic, moist oral mucous membranes and oropharynx normal Eyes conjunctivae normal and no scleral icterus Neck no lymphadenopathy and supple Resp Effort and Inspection: able to speak in complete sentences and symmetric chest movement Auscultation: diminished lung sounds Cardio regular rate, regular rhythm, S1 normal heart sound and S2 normal heart sound GI normal to inspection, nondistended, normoactive bowel sounds, soft to palpation and non-tender Extremity normal to inspection General Extremity: edema bilateral lower extremity Details: mild Neuro oriented x3, moves all extremities, no focal motor deficits and no sensory deficits noted Sensorium / Orientation: awake and alert Psych affect normal Assessment & Plan Assessment/Plan (1) Anemia: PLAN: I still think that she needs investigation to find out the etiology of acute blood loss anemia. Please especially case due to her history of CAD and see be along with the need for aspirin. I am okay being on PPI therapy for prophylaxis for gastritis, peptic ulcer disease or GI bleeding in upper GI tract. However that does not give prophylaxis for the rest of her GI tract. When deemed medically stable she should undergo endoscopic procedures. This was explained to her at the bedside. If she does go to transition care she can still have the procedures done. Charges/Coding Visit Charges Inpatient E&M: 04520 Subs Hosp L2
[2021-10-17] MEDS: dilTIAZem 25 MG/5 ML Vial IV BOLUS (18:12)
--- NOTE | 2021-10-17 18:12 | PN.HOSP_ITS ---
Hospitalist Note Notified by Rodrigo BOURGEOIS that patient's heart rate currently in the 120s to 140s. EKG obtained which shows atrial fibrillation with rapid ventricular rate. Patient does not have documented history of atrial fibrillation. I feel like this is likely due to to her acute on chronic respiratory failure. Discussed with Dr. Roberts who is in agreement that patient should receive 1 dose Cardizem IV 25 mg. Will obtain EKG approximately 30 minutes after IV Cardizem given. D- dimer, VQ scan, bilateral lower extremity Doppler, and echocardiogram also ordered. Patient not currently on any pharmacological DVT prophylaxis due to GI bleed on admission.
--- NOTE | 2021-10-17 18:15 | EKG12_ITS ---
Test Reason : 30 MIN AFTER CADIAZEM HUNG Blood Pressure : / mmHG Vent. Rate : 110 BPM Atrial Rate : 000 BPM P-R Int : 000 ms QRS Dur : 078 ms QT Int : 334 ms P-R-T Axes : 000 089 -24 degrees QTc Int : 452 ms Atrial fibrillation with rapid ventricular response Low voltage QRS Poor R wave progression Abnormal ECG Confirmed by HENRIETTA ROSS, [place] ([id number]), photography editor JASON PEREIRA ([id number]) on 10/19/2021 11:35:48 AM Referred By: Confirmed By:MONTANA SHRESTHA MD
[2021-10-17 19:40] LABS: D-Dimer Quantitative (DVT/PE) 0.81 FEU/ug/m (0.27-0.49)
[2021-10-17] MEDS: LORazepam 1 MG Tablet PO (21:06)
[2021-10-17] MEDS: traZODone 100 MG Tablet PO (21:07)
[2021-10-17] MEDS: Paroxetine 20 MG Tablet 60 MG PO (21:07)
[2021-10-17] MEDS: Atorvastatin Calcium 80 MG Tablet PO (21:08)
[2021-10-17] MEDS: Insulin Glargine-YFGN 100 UNIT/ML Pen 37 UNIT SC (23:23)
[2021-10-17] MEDS: Pantoprazole Sodium 40 MG Tablet PO (23:28)
[2021-10-17] MEDS: 0.9% Saline Lock 10 ML Syringe IV (23:40)
[2021-10-18] VITALS (32 sets, daily range): BP systolic 120–163; BP diastolic 64–97; PULSE 77–114; RESP 14–28; TEMP 36.3–37.1; O2SAT 92–99
[2021-10-18 00:01] LABS: Bedside Glucose 302 mg/dL (74-106)
[2021-10-18] MEDS: HYDROcodone Bitartrate/Apap 5/325 Tablet PO ×3 (00:43→22:27)
[2021-10-18] MEDS: Gabapentin 100 MG Capsule PO ×3 (05:13→21:50)
[2021-10-18] MEDS: Levothyroxine 88 MCG Tablet PO (05:13)
[2021-10-18 06:49] LABS: Absolute Lymphocyte Count 0.48 X10^3/uL (0.83-4.51); Absolute Neutrophil Count 15.3 X10^3/uL (2.0-7.7); Basophil# 0.01 X10^3/uL; Basophil% 0.1 % (0-1); Hematocrit 28.7 % (37-47); Lymphocyte # 0.48 X10^3/ul (0.83-4.51); Mean Corp Hgb Conc 31.4 g/dL (32-36); Mean Corpuscular Hgb 28.9 pg (27.0-32.0); Mean Corpuscular Volume 92.3 fL (81-99); Mean Platelet Vol. 10.3 fl (6.2-12.0); Monocyte# 0.33 X10^3/uL; NRBC Flagged by Analyzer 0 % (0-5); Neutrophil # 15.29 X10^3/uL (2.7-7.7); POSITIVE DIFFERENTIAL YES; Platelet Count 168 K/mm3 (150-450); RBC Distribution Width CV 15.7 % (11.6-14.6); RBC Distribution Width SD 52.7 fl (35.1-43.9); Red Blood Count 3.11 M/mm3 (4.2-5.4); White Blood Count 16.3 K/mm3 (4.4-11.0)
[2021-10-18 06:56] LABS: Differential Indicated SCAN CRITERIA MET
[2021-10-18] MEDS: Budesonide Respules 0.5 MG/2 ML AMPUL.NEB. INHALATION ×2 (07:06→19:45)
[2021-10-18] MEDS: Ipratropium/Albuterol Sulfate 3 ML AMPUL.NEB INHALATION ×4 (07:07→19:45)
[2021-10-18 07:15] LABS: ALB/GLOB Ratio 0.6 RATIO (0.9-2.4); AST(SGOT) 16 U/L (15-37); Alanine Aminotransfer ALT/SGPT 30 U/L (13-56); Albumin, Serum 2.4 g/dL (3.2-5.0); Alkaline Phosphatase 112 U/L (45-117); Anion Gap 6 (5-15); BUN 84 mg/dL (7-18); BUN/Creat Ratio 42.9 RATIO (10-20); Calcium,Total 9.7 mg/dL (8.5-10.1); Chloride 109 mmol/L (98-107); Creatinine, Serum 1.96 mg/dL (0.55-1.02); EST Glomerular Filtration Rate 27 mL/min (>60); Est Glom Filt Rate - Afr Amer 33 mL/min (>60); Estimated Creatinine Clearance 25.75 ml/min; Globulin 4.2 g/dL (2.2-4.2); Glucose 288 mg/dL (74-106); Potassium 4.2 mmol/L (3.5-5.1); Protein, Total 6.6 g/dL (6.4-8.2); Sodium Level 139 mmol/L (136-145)
[2021-10-18] MEDS: Insulin Lispro 100 UNIT/ML INSULN.PEN SC ×4 (07:31→21:53)
[2021-10-18] MEDS: Insulin Lispro 100 UNIT/ML INSULN.PEN 10 UNIT SC ×4 (07:32→21:54)
[2021-10-18 07:55] LABS: Bedside Glucose 260 mg/dL (74-106)
[2021-10-18] MEDS: Juven (unflavored) Packet 1 PACKET PO (09:08)
[2021-10-18] MEDS: Menthol/Lanolin/Calamine/Znox 113 GM Tube 1 APPLIC TOPICAL ×2 (09:08→21:51)
[2021-10-18] MEDS: Furosemide 40 MG/4 ML Vial IV ×2 (09:09→18:46)
[2021-10-18] MEDS: amLODIPine 10 MG Tablet PO (09:09)
[2021-10-18] MEDS: Carvedilol 6.25 MG Tablet PO (09:09)
[2021-10-18] MEDS: Pantoprazole Sodium 40 MG Tablet PO ×2 (09:10→21:51)
[2021-10-18] MEDS: Cholecalciferol (VIT D3) 25 MCG TABLET (1,000 UNITS) 50 MCG PO (09:10)
[2021-10-18] MEDS: Montelukast 10 MG Tablet PO (09:10)
[2021-10-18] MEDS: Fluticasone 0.05% 1 SPRAY NASAL.SRY NASAL (09:10)
[2021-10-18] MEDS: buPROPion (XL) 300 MG TABLET.XL PO (09:10)
--- NOTE | 2021-10-18 10:01 | PN.HOSP_ITS ---
Documented by User: Cristina Garza NP-Jeremiah 10/18/21 10:07 Subjective Subjective Patient seen and examined. Patient lying in bed no distress noted. Currently undergoing echocardiogram. Patient on 5 L nasal cannula oxygen Objective Data Objective Data Vital Signs: Vital Signs Temp Pulse Resp BP Pulse Ox O2 Del Method O2 Flow Rate 98.7 F 92 28 H 163/70 H 99 Nasal Cannula 6 10/18/21 08:00 10/18/21 09:00 10/18/21 09:00 10/18/21 09:00 10/18/21 09:00 10/18/21 09:00 10/18/21 09:00 FiO2 50 10/16/21 07:45 Oxygen Flow Rate (L/min) 6 Oxygen Delivery Method Nasal Cannula Weight: 235 lb 0.204 oz Body Mass Index (BMI) 39.1 Intake & Output: Intake and Output for Last 24 Hours 10/16/21 10/17/21 10/18/21 23:59 23:59 23:59 Intake Total 1367.5 / 1367.5 1081.25 / 1096.25 150.0 / 150.0 Output Total 400 / 400 825 / 825 0 / 0 Balance 967.5 / 967.5 256.25 / 271.25 150.0 / 150.0 Lab / Micro Data Result Diagrams: 10/18/21 06:38 10/18/21 06:38 Labs: Laboratory Results - last 24 hr 10/17/21 11:17: POC Glucose 237 H 10/17/21 16:15: POC Glucose 179 H 10/17/21 19:01: D-Dimer Quant (PE/DVT) 0.81 H* 10/17/21 23:21: POC Glucose 302 H 10/18/21 06:38: WBC 16.3 H, RBC 3.11 L, Hgb 9.0 L, Hct 28.7 L, MCV 92.3, MCH 28.9, MCHC 31.4 L, RDW Std Deviation 52.7 H, RDW Coeff of Magen 15.7 H, Plt Count 168, MPV 10.3, Immature Gran % (Auto) 0.900, Neut % (Auto) 94.0 H, Lymph % (Auto) 3.0 L, [place] % (Auto) 2.0, Eos % (Auto) 0.0, Baso % (Auto) 0.1, Absolute Neuts (auto) 15.3 H, Absolute Lymphs (auto) 0.48 L, Nucleated RBC % 0 10/18/21 06:38: Sodium 139, Potassium 4.2, Chloride 109 H, Carbon Dioxide 24.0, Anion Gap 6, BUN 84 H, Creatinine 1.96 H, Estim Creat Clear Calc 25.75, Est GFR (MDRD) Af Amer 33 L, Est GFR (MDRD) Non-Af 27 L, BUN/Creatinine Ratio 42.9 H, Glucose 288 H, Calcium 9.7, Total Bilirubin 0.70, AST 16, ALT 30, Alkaline Phosphatase 112, Total Protein 6.6, Albumin 2.4 L, Globulin 4.2, Albumin/Globulin Ratio 0.6 L 10/18/21 07:30: POC Glucose 260 H Micro: Microbiology 10/14/21 12:35 Blood Culture (Wb) - Anticubital Left Blood Culture - Preliminary Proteus mirabilis 10/14/21 12:46 Blood Culture (Wb) - Anticubital Right Blood Culture - Preliminary No growth in 48 hours. 10/16/21 09:50 Nasal Secretion SARS-CoV-2 Antigen (Rapid) - Final 10/14/21 14:30 Wound - Toe Gram Stain - Final 10/14/21 14:30 Wound - Toe Wound Culture - Final Proteus mirabilis 10/15/21 06:17 Stool Stool Occult Blood (JARRETT) - Final Occult Blood Positive Radiography Diagnostic Testing: Radiology Impression Extremity Arterial Study 10/14/21 20:41 Interpretation Summary Monophasic and biphasic Doppler waveforms are noted at ankle level on the right. Biphasic Doppler waveforms and absent waveforms are noted at ankle level on the left. Pulse- volume recordings appear diminished at digital level on the left. Resting ankle-brachial indices are supra-normal bilaterally. Digital-brachial indices were not determined due to patient non- cooperation. There is evidence of arterial calcification at ankle level bilaterally (atherosclerosis). There is a suggestion of arterial occlusive disease bilaterally, though quantification is difficult due to arterial calcification and patient non-cooperation. Clinical correlation is advised. Ordering Physician: Noah No Referring Physician: [place] PETIT MD Performed By: Peyton Shaw RVT, RDCS Physical Exam Const alert, oriented x3 and no apparent distress HEENT head/scalp atraumatic, moist oral mucous membranes and oropharynx normal Eyes conjunctivae normal and no scleral icterus Neck no lymphadenopathy and supple Resp Effort and Inspection: able to speak in complete sentences and symmetric chest movement Auscultation: diminished lung sounds Cardio regular rate, regular rhythm, S1 normal heart sound and S2 normal heart sound GI normal to inspection, nondistended, normoactive bowel sounds, soft to palpation and non-tender Extremity normal to inspection General Extremity: edema bilateral lower extremity Details: mild Neuro oriented x3, moves all extremities, no focal motor deficits and no sensory deficits noted Sensorium / Orientation: awake and alert Psych affect normal Assessment & Plan Assessment/Plan (1) Decubitus ulcer of dorsum of foot, stage 2: (2) Anemia: PLAN: Plan 1. Acute hypoxic respiratory failure secondary to acute COPD exacerbation/acute exacerbation of heart failure with preserved EF -Patient currently on 5 L nasal cannula oxygen, on 3 to 4 L baseline -Continue breathing treatments -Continue IV steroids -Continue IV Lasix -Last echocardiogram demonstrates EF 60% 2. Acute on chronic anemia likely secondary to GI bleed -Hemoglobin 9.0 -Patient received 2 units packed red blood cells 10/14/2021, hemoglobin stable since -GI following, plan for EGD and possibly colonoscopy once patient's respiratory status has improved -Continue PPI -Hold aspirin 3. Worsening chronic left foot ulcers with positive Proteus -Patient had bedside wound debridement 10/14/2021 -X-ray demonstrates nondisplaced fracture of the proximal phalanx -Cultures positive for Proteus continue IV ceftriaxone -Wound nurse and podiatry following 4. New onset atrial fibrillation with RVR -Patient initiated on Cardizem drip last night currently at 15 -Echocardiogram pending -D-dimer elevated 0.81, VQ scan pending -Bilateral lower extremity duplex negative for DVT -Cardiology consulted 5. Diabetes mellitus type 2 -Continue Lantus -Continue ACH S blood sugars with sliding scale insulin 6. Hypertension/hyperlipidemia/CAD -Continue amlodipine, Coreg -Vital signs per protocol 7. Hypothyroidism -Continue levothyroxine 8. Anxiety and depression -Continue Paxil, trazodone, bupropion DVT prophylaxis-SCDs This patient was seen by DEVON Phan under the supervision of Dr. Roberts. Documented by User: Dr. Augie Roberts MD 10/18/21 10:35 Objective Data Lab / Micro Data Result Diagrams: 10/18/21 06:38 10/18/21 06:38 Assessment & Plan Assessment/Plan (1) Decubitus ulcer of dorsum of foot, stage 2: (2) Anemia: Addt'l Comments This patient was seen in conjunction with DEVON Phan .? I have independently interviewed and examined the patient and reviewed pertinent historical, laboratory, and other data.? Please refer to DEVON Phan? note for details of this patient's presentation, findings, and recommendations.? I have reviewed? DEVON Phan note and concur? with documented findings. In brief, patient is a 66-year-old lady with multiple comorbidities including diabetes mellitus type 2 with peripheral neuropathy and chronic left foot ulcers who presented after bumping her left foot.? Imaging studies obtained on admission demonstrated nondisplaced fracture of the proximal phalanx.? Consultation was placed to podiatry patient underwent wound debridement on 10/14/2021.? Patient hospital stay complicated by decompensated respiratory status.? An assessment of acute hypoxic respiratory failure secondary to combination of COPD and CHF exacerbation made.? Patient was also noted to be anemic consultation was placed to GI for possible endoscopic evaluation he was however felt patient was too unstable to undergo the procedure. 10/18/2021; patient went into A. fib with RVR. Did receive Cardizem bolus without convert and subsequently started on Cardizem drip. As part of her man agement ordered VQ scan venous duplex 2D echo and consultation placed to cardiology. Also had a discussion with the patient regarding the CODE STATUS. Patient was previously DNR CC however she elected to change her CODE STATUS to DNR CCA and she did understand the changes made. Order placed. Physical Examination: GENERAL: cooperative HEENT: Atraumatic; EYES; Anicteric, Normal Conjunctiva NECK; supple, normal thyroid, RESPIRATORY: Diminished to auscultation CARDIOVASCULAR:? Regular S1 S2, GI:? soft, normoactive bowel sounds, : No Renal angle tenderness; EXTREMITIES:? No edema, no clubbing, MUSCULOSKELETAL:? no muscle wasting NEURO:? Awake;? no lateralizing signs. SKIN:? No Rash PSYCH; Flat? affect ? Assessment: 1.? Acute hypoxic respiratory failure 2.? Acute COPD exacerbation 3.? Acute congestive heart failure with preserved ejection fraction 4.? Anemia secondary to anemia of chronic disorder 5.? GI bleed 6.? Left foot wound infection with Proteus mirabilis 7.? Nondisplaced fracture along the distal portion of the proximal phalanx of the great toe. 8.? Diabetes mellitus type 2 9.? Coronary artery disease with previous non-STEMI and subsequent PCI with AILYN 10.? Essential hypertension 11.? Diabetic polyneuropathy 12.? Hypothyroidism 13.? Degenerative joint disease 14.? Depression with anxiety 15.? Chronic hypoxic respiratory failure on baseline home oxygen 16.? DVT prophylaxis Recommendations: 1.? I have discussed the results of my overview and impressions with the patient 2.? Options for management were reviewed Total time spent by myself and the advanced practice practitioner evaluating patient, reviewing labs, subsequent management decisions, discussion with yael ent as well as other providers 40 minutes ( 25 of which was spent by myself Time spent on code changes discussion; 15-minute) Charges/Coding Visit Charges Inpatient E&M: 97272 Subs Hosp L3 Procedures Hospitalists Procedures: 40307 Advncd Care Plan 30 Min
[2021-10-18] MEDS: Ceftriaxone 1 GM/50 ML BAG IV (10:06)
[2021-10-18 11:56] LABS: Bedside Glucose 312 mg/dL (74-106)
--- NOTE | 2021-10-18 12:53 | EKG12_ITS ---
Test Reason : arrythmia Blood Pressure : / mmHG Vent. Rate : 126 BPM Atrial Rate : 000 BPM P-R Int : 000 ms QRS Dur : 084 ms QT Int : 308 ms P-R-T Axes : 000 097 -21 degrees QTc Int : 446 ms Atrial fibrillation with rapid ventricular response Rightward axis Low voltage QRS Nonspecific T wave abnormality Poor R wave progression Abnormal ECG Confirmed by HENRIETTA ROSS, [place] ([id number]), production editor JASON PEREIRA ([id number]) on 10/19/2021 11:36:38 AM Referred By: israel Garza Confirmed By:MON[place] SHRESTHA MD
--- NOTE | 2021-10-18 15:01 | WOUNDNOTE ---
wound photo: left foot
--- NOTE | 2021-10-18 15:01 | WOUNDNOTE ---
wound photo: left foot
--- NOTE | 2021-10-18 15:02 | WOUNDNOTE ---
wound photo: left heel
[2021-10-18 16:30] LABS: Bedside Glucose 298 mg/dL (74-106)
--- NOTE | 2021-10-18 18:08 | PCM.CONS.C ---
Assessment & Plan Assessment/Plan (1) Atrial fibrillation: PLAN: The patient appears to have atrial fibrillation. It is unclear whether she has had this in the past. At the moment the etiology may be multifactorial secondary to combination of her underlying cardiopulmonary disease process as well as other processes superimposed upon her cardiopulmonary diagnosis. She should continue medical management. This would include attempts at rate control therapy with agents such as beta-blockers and/or calcium channel antagonist as tolerated. She is not an ideal candidate for anticoagulant therapy based upon concerns of anemia and the possible GI bleeding process requiring PRBC transfusion. (2) CAD (coronary artery disease): PLAN: The patient has a history of CAD. According to her previous [facility] cardiac catheterization/PCI report from 02-24-2017 she was noted to have the left main with mild luminal regularities, the proximal LAD with 90% stenosis, the LCx with mild luminal regularities, and the RCA with mild luminal regularities. Thus she should continue risk factor modification and medical therapy. (3) History of coronary artery stent placement: PLAN: According to her [facility] PCI report from 02-24-2017 she received to the LAD a 3.0 x 16 mm Synergy AILYN stent. Again at the moment she appears without acute coronary artery related symptoms. She will continue medical management and support. (4) Chronic heart failure with preserved ejection fraction (HFpEF): PLAN: She has been diagnosed with CHF with preserved ejection fraction. The moment she appears without acute symptoms. She should continue medical therapy to maintain a euvolemic state. (5) Hyperlipidemia: PLAN: She should continue risk factor modification medical therapy. (6) Essential hypertension: PLAN: Her blood pressure can be followed with adjustment as deemed appropriate. (7) Diabetes mellitus with diabetic polyneuropathy: PLAN: She has history of diabetes mellitus with associated polyneuropathy. She will continue evaluation care per internal medicine. (8) Diabetic foot ulcers: PLAN: She has a history of diabetic foot ulcers. She is currently undergoing evaluation and care for her left great toe injury. (9) COPD (chronic obstructive pulmonary disease): PLAN: She has history of COPD. She will continue evaluation care per internal medicine. (10) Anemia: PLAN: Her hemoglobin level was noted to be as low as 6.8. She did receive PRBCs. Her hemoglobin level has improved. Hopefully she will be able to undergo further evaluation by gastroenterology. In the interim she has not an ideal candidate for anticoagulant therapy secondary to the concern of her anemia be related to a GI bleeding process requiring PRBCs. (11) Renal insufficiency: PLAN: She does have renal insufficiency. It appears that she has an element of chronic renal insufficiency which may be exacerbated recently. She will need to continue medical management. Her medications can be adjusted around her renal insufficiency. (12) Obesity: PLAN: Unfortunately she is obese. She has been counseled on the importance of dietary therapy and activity as best as her physical conditions will allow to try and bring her weight under better control to assist with her multiple comorbidities. Addt'l Comments Overall, at the present time, with respect to her atrial fibrillation, her rate appears to be, at the moment, reasonably well controlled. She will continue rate limiting therapy which can include her beta-skyler with adjustment of dose and/or the addition of a calcium channel antagonist as needed and tolerated. Again she does not appear to be an ideal candidate for anticoagulant therapy secondary to the concerns of anemia being related to a GI bleeding process. Also, it does not appear that she requires additional cardiac diagnostic studies/procedures at this time. She does need to continue medical therapy to support her multiple cardiac diagnosis and comorbidities. The patient's case was discussed and reviewed with her. She was agreeable to this approach. The patient's case has previously been discussed with the [facility] hospitalist staff. This note was generated using a voice recognition system and there may be incorrect words, spelling or punctuation that were not noted when reviewing the office note prior to saving. HPI Consult Data Date of Consult: 10/18/21 HPI Narrative HPI Narrative: SONA WILSON, is a 66 year old white female who presents for cardiovascular consultation based upon concerns of atrial fibrillation superimposed upon a history of underlying CAD status post PTCA/stent ([facility]: Date and details unknown), CHF , hyperlipidemia, hypertension, diabetes mellitus, hypothyroidism, COPD, SILVER, left foot-chronic ulcer, on home O2 therapy. The patient states she presented as she fell and hurt my left toe . She had also noted that she had left toe discharge. She was evaluated the emergency department and found to have the left great toe distal portion of the proximal phalanx to have a nondisplaced fracture. There was also associated soft tissue swelling. She was brought into the hospital for further evaluation and care. She was placed on IV antibiotic therapy. She is subsequently noted to have atrial fibrillation. She states she may have had this in the past based upon being told that she had had a irregular fast heartbeat by her [facility] assistant in nursing. During her hospitalization she has been treated by internal medicine with rate control therapy with IV diltiazem. She has also undergone additional noninvasive evaluation with a transthoracic echocardiogram. The results are as noted below. Based upon her multiple comorbidities she also underwent evaluation with a D-dimer level. This was reported as elevated. She is pending further evaluation for pulmonary emboli with a VQ scan as opposed to a chest CT scan-possibly secondary to her underlying renal insufficiency. She denies at this time any ongoing chest discomfort or acute shortness of breath/dyspnea. She states today she feels her breathing is actually somewhat improved. There has been no report of acute orthopnea or PND. Her right lower extremity/ankle/foot appears to have evidence of trace to mild edema. Her left lower extremity/ankle/foot is bandaged. She denies any near-syncope or syncope. She also has concerns of anemia. There is concerns of possible gastrointestinal bleeding. However she has yet to undergo further evaluation for such. In the interim she did receive PRBC transfusion. [facility] Medical History Acute cervical myofascial strain Acute on chronic respiratory failure with hypoxemia Asthma Atherosclerotic heart disease of [place] coronary artery without angina pectoris Chronic heart failure with preserved ejection fraction (HFpEF) Chronic ulcer of great toe of left foot Closed head injury Congestive heart failure (CHF) COPD (chronic obstructive pulmonary disease) Decubitus ulcer of left heel, stage 3 Decubitus ulcer, heel, left, unstageable Depression Diabetes type 2, controlled Diverticulitis Essential hypertension Former smoker History of non-ST elevation myocardial infarction (NSTEMI) (02/24/17) Hyperlipidemia Hypothyroid Myocardial infarct Non-rheumatic tricuspid valve insufficiency Nonrheumatic mitral (valve) insufficiency Obesity Obstructive sleep apnea On home O2 Secondary pulmonary arterial hypertension Type 2 diabetes mellitus Home Medications bupropion HCl 300 mg 24 hr tablet, extended release 300 mg PO QHS depression 09/02/20 [History Last Taken 10/13/21] cholecalciferol (vitamin D3) 50 mcg (2,000 unit) capsule (Vitamin D3) 50 mcg PO DAILY supplement 09/02/20 [History Last Taken 10/14/21 09:30] fluticasone furoate 100 mcg-vilanterol 25 mcg/dose inhalation powder (Breo Ellipta) 1 inh inhalation DAILY breathing 09/02/20 [History Last Taken 10/14/21] fluticasone propionate 50 mcg/actuation nasal spray,suspension 1 spray intranasal DAILY PRN allergies 09/02/20 [History Last Taken 09/02/20] furosemide 80 mg tablet 80 mg PO DAILY water pill 09/02/20 [History Last Taken 10/14/21] levothyroxine 88 mcg tablet 88 mcg PO DAILY thyroid 09/02/20 [History Last Taken 10/14/21] lorazepam 1 mg tablet 1 mg PO QHS anxiety 09/02/20 [History Last Taken 10/13/21] montelukast 10 mg tablet 10 mg PO DAILY allergies 09/02/20 [History Last Taken 10/14/21] trazodone 100 mg tablet 100 mg PO QHS sleep 09/02/20 [History Last Taken 10/13/21] carvedilol 6.25 mg tablet 6.25 mg PO BID #60 tabs 01/06/21 [Rx Last Taken 10/14/21 09:30] atorvastatin 80 mg tablet 80 mg PO QHS #30 tabs 04/08/21 [Rx Last Taken 10/14/21 09:30] aspirin 81 mg tablet,delayed release (Adult Aspirin Regimen) 81 mg PO DAILY heart 05/17/21 [History Last Taken 10/14/21 09:30] amlodipine 10 mg tablet 10 mg PO DAILY bp 08/25/21 [History Last Taken 10/14/21 09:30] gabapentin 100 mg capsule (Neurontin) 100 mg PO TID nerve pain 08/25/21 [History Last Taken 10/14/21] dulaglutide 0.75 mg/0.5 mL subcutaneous pen injector (Trulicity) 0.75 mg subcut QWEEK dm 09/02/21 [History Last Taken 10/10/21] insulin detemir U-100 100 unit/mL (3 mL) subcutaneous pen 37 unit subcut QHS blood sugar 09/02/21 [History Last Taken 10/13/21] insulin lispro 100 unit/mL subcutaneous pen See Protocol subcut QACHS blood sugar 09/02/21 [History Last Taken 10/14/21] ipratropium 0.5 mg-albuterol 3 mg (2.5 mg base)/3 mL nebulization soln 3 ml inhalation BID PRN sob 09/02/21 [History Last Taken Unknown] meloxicam 7.5 mg tablet 7.5 mg PO DAILY pain 09/02/21 [History Last Taken 10/14/21] paroxetine HCl 30 mg tablet 60 mg PO QHS mental health 09/02/21 [History Last Taken 10/13/21] cephalexin 500 mg capsule 500 mg PO Q6 #40 caps 09/11/21 [Rx Last Taken 10/14/21 09:30] clindamycin HCl 150 mg capsule 300 mg PO 4X/DAY #56 caps 10/02/21 [Rx Last Taken 10/14/21 09:30] hydrocodone-acetaminophen 5-325mg 5mg-325mg 1 tab PO Q6H PRN pain 3 days #12 tabs 10/02/21 [Rx Last Taken 10/14/21] Allergy/AdvReac Type Severity Reaction Status Date / Time Sulfa (Sulfonamide Allergy Anaphylaxis Verified 10/14/21 10:12 Antibiotics) sulfur dioxide Allergy Anaphylaxis Verified 10/14/21 10:12 Family History Grandmother Diabetes Mother Heart disease Surgical History H/O right heart catheterization History of cataract surgery History of coronary artery stent placement (02/24/17) Tubal ligation status Social History Smoking Status: Former smoker how long ago did patient quit smokin alcohol intake: former year quit: 1999 substance use type: does not use caffeine: Yes Type: carbonated beverages and tea ROS Constitutional Constitutional: Reports as per HPI Eyes Eyes: Reports as per HPI ENT HEENT: Reports as per HPI Cardiovascular Cardiovascular: Reports dyspnea and edema Respiratory/Chest Respiratory/Chest: Reports dyspnea Gastrointestinal Gastrointestinal: Reports as per HPI Genitourinary Genitourinary: Reports as per HPI Musculoskeletal Musculoskeletal: Reports as per HPI Integumentary Integumentary: Reports as per HPI Neurologic Neurologic: Reports as per HPI Physical Exam Const alert, oriented x3 and no apparent distress HEENT normocephalic, head/scalp atraumatic and hearing grossly normal bilaterally Eyes PERRL, EOMs intact bilaterally, conjunctivae normal and no scleral icterus Neck full ROM, supple and no JVD Carotids: normal carotid upstroke Resp normal respiratory effort Auscultation: diminished lung sounds bilateral lower (Diminished inspiratory effort) Cardio Rhythm: abnormal rhythm irregularly irregular Heart Sounds: S1 normal and S2 normal GI normal to inspection, nondistended, normoactive bowel sounds Extremity General Extremity: edema right lower extremity mild Skin Skin Narrative: Left ankle/left foot: Currently in a surgical dressing Psych mental status grossly normal Risk Stratification Risk Stratification Applicable: Yes Age >/= 65: Yes >/= 3 CAD Risk Factors (HTN, HLD, DM, family hx of CAD, or current smoker): Yes Aspirin Use in the Past 7 Days: Yes Severe Angina (>/= episodes in 24 hours): No EKG ST Changes >/= 0.5mm: No Positive Cardiac Marker: No WILBERT Risk Stratification Score: 3 WILBERT % Risk: 13% Risk Procedure Criteria Type of Procedure Procedure Type: Elective Elective Risks - COVID COVID Risk Discussion: The surgeon/proceduralist and patient have discussed in detail the risk of exposure to and/or potential harm posed by the COVID-19 virus with having a surgery/procedure at this time versus the risk of delaying the surgery/procedure. It is not possible to know either the risk of delaying the surgery or procedure or chance of getting an infection with perfect accuracy, but a joint decision was made between the patient and the surgeon/proceduralist to proceed at this time with the scheduled surgery/procedure as indicated on the consent form. Objective Data Vital Signs: Vital Signs Temp Pulse Resp BP Pulse Ox O2 Del Method O2 Flow Rate 97.7 F L 100 18 143/78 H 97 Nasal Cannula 3 10/18/21 16:00 10/18/21 16:00 10/18/21 16:00 10/18/21 16:00 10/18/21 16:00 10/18/21 16:00 10/18/21 16:00 FiO2 50 10/16/21 07:45 Oxygen Flow Rate (L/min) 3 Oxygen Delivery Method Nasal Cannula Weight: 235 lb 0.204 oz Body Mass Index (BMI) 39.1 Intake & Output: Intake and Output for Last 24 Hours 10/16/21 10/17/21 10/18/21 23:59 23:59 23:59 Intake Total 1367.5 / 1367.5 1081.25 / 1096.25 795.00 / 795.00 Output Total 400 / 400 825 / 825 475 / 475 Balance 967.5 / 967.5 256.25 / 271.25 320.00 / 320.00 Lab / Micro Data Result Diagrams: 10/18/21 06:38 10/18/21 06:38 Labs: Laboratory Results - last 24 hr 10/17/21 19:01: D-Dimer Quant (PE/DVT) 0.81 H* 10/17/21 23:21: POC Glucose 302 H 10/18/21 06:38: WBC 16.3 H, RBC 3.11 L, Hgb 9.0 L, Hct 28.7 L, MCV 92.3, MCH 28.9, MCHC 31.4 L, RDW Std Deviation 52.7 H, RDW Coeff of Magen 15.7 H, Plt Count 168, MPV 10.3, Immature Gran % (Auto) 0.900, Neut % (Auto) 94.0 H, Lymph % (Auto) 3.[address] L, [place] % (Auto) 2.0, Eos % (Auto) 0.0, Baso % (Auto) 0.1, Absolute Neuts (auto) 15.3 H, Absolute Lymphs (auto) 0.48 L, Nucleated RBC % 0 10/18/21 06:38: Sodium 139, Potassium 4.2, Chloride 109 H, Carbon Dioxide 24.0, Anion Gap 6, BUN 84 H, Creatinine 1.96 H, Estim Creat Clear Calc 25.75, Est GFR (MDRD) Af Amer 33 L, Est GFR (MDRD) Non-Af 27 L, BUN/Creatinine Ratio 42.9 H, Glucose 288 H, Calcium 9.7, Total Bilirubin 0.70, AST 16, ALT 30, Alkaline Phosphatase 112, Total Protein 6.6, Albumin 2.4 L, Globulin 4.2, Albumin/Globulin Ratio 0.6 L 10/18/21 07:30: POC Glucose 260 H 10/18/21 11:30: POC Glucose 312 H 10/18/21 16:05: POC Glucose 298 H Micro: Microbiology 10/14/21 12:35 Blood Culture (Wb) - Anticubital Left Blood Culture - Preliminary Proteus mirabilis Cardiology Labs/Tests 10/17/21 19:01: D-Dimer Quant (PE/DVT) 0.81 H* 10/18/21 06:38: WBC 16.3 H, RBC 3.11 L, Hgb 9.0 L, Hct 28.7 L, MCV 92.3, MCH 28.9, MCHC 31.4 L, Plt Count 168, MPV 10.3, Immature Gran % (Auto) 0.900, Neut % (Auto) 94.0 H, Lymph % (Auto) 3.[address], [place] % (Auto) 2.0, Eos % (Auto) 0.0, Baso % (Auto) 0.1, Absolute Neuts (auto) 15.3 H, Nucleated RBC % 0 10/18/21 06:38: Sodium 139, Potassium 4.2, Chloride 109 H, Carbon Dioxide 24.0, Anion Gap 6, BUN 84 H, Creatinine 1.96 H, Est GFR (MDRD) Af Amer 33 L, Est GFR (MDRD) Non-Af 27 L, BUN/Creatinine Ratio 42.9 H, Glucose 288 H, Calcium 9.7, Total Bilirubin 0.70 Rhythm: Atrial fibrillation EKG: Atrial fibrillation; low voltage QRS; poor R wave progression ECHO: Interpretation Summary The study was technically difficult. ? Based upon the 2D echocardiographic and contrast enhanced images obtained there appears to be grossly normal left ventricular size, wall motion, and systolic function. The estimated ejection fraction is 55 %. The left atrium is mildly enlarged. Mild focal mitral valve calcification of the anterior leaflet. The mitral valve chordae are thickened and/or calcified. Moderate (2+) mitral valve insufficiency. Moderate (2+) tricuspid valve insufficiency. Trivial aortic valve insufficiency. Trivial pulmonic valve insufficiency. Right ventricular systolic pressure estimated to be 55 mmHg c/w pulmonary hypertension. Diastolic function is indeterminate. Cardiac catheterization: 02-24-2017: [facility] Left main coronary artery: Mild luminal irregularities LAD: Proximal 90% stenosis LCx: Mild luminal irregularities RCA: Mild luminal irregularities PCI: 02-24-2017: [facility] LAD: PCI/AILYN: 3.0 x 16 mm Synergy EES Radiography Diagnostic Testing: Radiology Impression Extremity Arterial Study 10/14/21 20:41 Interpretation Summary Monophasic and biphasic Doppler waveforms are noted at ankle level on the right. Biphasic Doppler waveforms and absent waveforms are noted at ankle level on the left. Pulse-volume recordings appear diminished at digital level on the left. Resting ankle-brachial indices are supra-normal bilaterally. Digital-brachial indices were not determined due to patient non-cooperation. There is evidence of arterial calcification at ankle level bilaterally (atherosclerosis). There is a suggestion of arterial occlusive disease bilaterally, though quantification is difficult due to arterial calcification and patient non-cooperation. Clinical correlation is advised. Ordering Physician: Noah No Referring Physician: FROY PETIT MD Performed By: Peyton Shaw RVT, RDCS Echocardiogram 10/17/21 17:43 Interpretation Summary The study was technically difficult. Based upon the 2D echocardiographic and contrast enhanced images obtained there appears to be grossly normal left ventricular size, wall motion, and systolic function. The estimated ejection fraction is 55 %. The left atrium is mildly enlarged. Mild focal mitral valve calcification of the anterior leaflet. The mitral valve chordae are thickened and/or calcified. Moderate (2+) mitral valve insufficiency. Moderate (2+) tricuspid valve insufficiency. Trivial aortic valve insufficiency. Trivial pulmonic valve insufficiency. Right ventricular systolic pressure estimated to be 55 mmHg c/w pulmonary hypertension. Diastolic function is indeterminate. Ordering Physician: Cristina Garza Referring Physician: Froy Petit Performed By: Nancy Squires RDCS Lung Scan-VQ NM 10/17/21 17:46 IMPRESSION: Low probability of pulmonary embolism. Central clumping of the ventilatory agent suggestive of air way disease. Electronically Signed: Butch Ling MD at 12:07 EDT ,
[2021-10-18] MEDS: Insulin Glargine-YFGN 100 UNIT/ML Pen 37 UNIT SC (21:50)
[2021-10-18] MEDS: Paroxetine 20 MG Tablet 60 MG PO (21:51)
[2021-10-18] MEDS: traZODone 100 MG Tablet PO (21:52)
[2021-10-18] MEDS: Atorvastatin Calcium 80 MG Tablet PO (21:52)
[2021-10-18] MEDS: LORazepam 1 MG Tablet PO (22:28)
[2021-10-18] MEDS: Carvedilol 12.5 MG Tablet PO (22:28)
--- NOTE | 2021-10-18 23:07 | EKG12_ITS ---
Test Reason : AM EKG Blood Pressure : / mmHG Vent. Rate : 107 BPM Atrial Rate : 121 BPM P-R Int : 000 ms QRS Dur : 094 ms QT Int : 342 ms P-R-T Axes : 088 058 -08 degrees QTc Int : 456 ms AFlutter Nonspecific T wave abnormality Abnormal ECG Confirmed by AUGUSTO ROSS, MAEGAN ([id number]), managing editor JASON PEREIRA ([id number]) on 10/20/2021 1:31:01 PM Referred By: Confirmed By:APRIL CASAS MD
--- NOTE | 2021-10-18 23:36 | PCM.HOSP.N ---
Hospitalist Note Patient with rhythm change on monitor. EKG obtained and patient has returned into PAF w/ rate 108. Will administer cardizem bolus x 1 and continue to monitor. Recently transitioned off drip to oral BB per Cardiology today.
[2021-10-18] MEDS: dilTIAZem 25 MG/5 ML Vial 20 MG IV BOLUS (23:42)
[2021-10-19] VITALS (16 sets, daily range): BP systolic 133–147; BP diastolic 71–94; PULSE 85–120; RESP 16–20; TEMP 36.6–36.8; O2SAT 90–99
[2021-10-19 00:20] LABS: Bedside Glucose 276 mg/dL (74-106)
[2021-10-19] MEDS: Levothyroxine 88 MCG Tablet PO (06:39)
[2021-10-19] MEDS: Gabapentin 100 MG Capsule PO ×3 (06:39→21:57)
[2021-10-19 07:04] LABS: Absolute Lymphocyte Count 0.46 X10^3/uL (0.83-4.51); Absolute Neutrophil Count 11.3 X10^3/uL (2.0-7.7); Basophil# 0.01 X10^3/uL; Basophil% 0.1 % (0-1); Hematocrit 30.2 % (37-47); Hemoglobin 9.4 g/dL (12.0-15.0); Lymphocyte # 0.46 X10^3/ul (0.83-4.51); Lymphocyte % 3.8 % (19-41); Mean Corp Hgb Conc 31.1 g/dL (32-36); Mean Corpuscular Hgb 28.4 pg (27.0-32.0); Mean Corpuscular Volume 91.2 fL (81-99); Mean Platelet Vol. 10.7 fl (6.2-12.0); Monocyte# 0.25 X10^3/uL; Monocyte% 2.1 % (0-10); NRBC Flagged by Analyzer 0 % (0-5); Neutrophil # 11.31 X10^3/uL (2.7-7.7); Neutrophil % 93.3 % (47-70); POSITIVE DIFFERENTIAL YES; Platelet Count 147 K/mm3 (150-450); RBC Distribution Width CV 15.4 % (11.6-14.6); RBC Distribution Width SD 51.6 fl (35.1-43.9); Red Blood Count 3.31 M/mm3 (4.2-5.4); White Blood Count 12.1 K/mm3 (4.4-11.0)
[2021-10-19] MEDS: Ipratropium/Albuterol Sulfate 3 ML AMPUL.NEB INHALATION ×4 (07:08→21:51)
[2021-10-19] MEDS: Budesonide Respules 0.5 MG/2 ML AMPUL.NEB. INHALATION ×2 (07:08→21:51)
[2021-10-19 07:11] LABS: Differential Indicated SCAN CRITERIA MET
[2021-10-19 07:32] LABS: ALB/GLOB Ratio 0.5 RATIO (0.9-2.4); AST(SGOT) 14 U/L (15-37); Alanine Aminotransfer ALT/SGPT 30 U/L (13-56); Albumin, Serum 2.4 g/dL (3.2-5.0); Alkaline Phosphatase 114 U/L (45-117); Anion Gap 5 (5-15); BUN 77 mg/dL (7-18); BUN/Creat Ratio 43.3 RATIO (10-20); Calcium,Total 9.4 mg/dL (8.5-10.1); Chloride 107 mmol/L (98-107); Creatinine, Serum 1.78 mg/dL (0.55-1.02); EST Glomerular Filtration Rate 30 mL/min (>60); Est Glom Filt Rate - Afr Amer 37 mL/min (>60); Estimated Creatinine Clearance 28.35 ml/min; Globulin 4.4 g/dL (2.2-4.2); Glucose 335 mg/dL (74-106); Potassium 3.9 mmol/L (3.5-5.1); Protein, Total 6.8 g/dL (6.4-8.2); Sodium Level 139 mmol/L (136-145)
[2021-10-19] MEDS: Insulin Lispro 100 UNIT/ML INSULN.PEN 10 UNIT SC ×4 (08:50→21:59)
[2021-10-19] MEDS: Insulin Lispro 100 UNIT/ML INSULN.PEN SC ×4 (08:50→21:59)
[2021-10-19] MEDS: Menthol/Lanolin/Calamine/Znox 113 GM Tube 1 APPLIC TOPICAL ×2 (08:51→21:58)
[2021-10-19] MEDS: Carvedilol 12.5 MG Tablet PO ×2 (08:51→21:57)
[2021-10-19] MEDS: Montelukast 10 MG Tablet PO (08:52)
[2021-10-19] MEDS: Pantoprazole Sodium 40 MG Tablet PO ×2 (08:52→21:57)
[2021-10-19] MEDS: Furosemide 40 MG/4 ML Vial IV ×2 (08:52→17:00)
[2021-10-19] MEDS: Cholecalciferol (VIT D3) 25 MCG TABLET (1,000 UNITS) 50 MCG PO (08:52)
[2021-10-19] MEDS: amLODIPine 10 MG Tablet PO (08:52)
[2021-10-19] MEDS: buPROPion (XL) 300 MG TABLET.XL PO (08:52)
[2021-10-19] MEDS: Ceftriaxone 1 GM/50 ML BAG IV (09:03)
[2021-10-19] MEDS: HYDROcodone Bitartrate/Apap 5/325 Tablet PO ×2 (09:03→18:11)
[2021-10-19 10:10] LABS: Bedside Glucose 325 mg/dL (74-106)
--- NOTE | 2021-10-19 11:17 | PCM.PN.HOSP ---
Documented by User: DEVON Phan 10/19/21 11:21 Subjective Subjective Patient seen and examined. Patient sitting in chair no distress noted. Objective Data Objective Data Vital Signs: Vital Signs Temp Pulse Resp BP Pulse Ox O2 Del Method O2 Flow Rate 98.2 F 100 16 140/94 H 90 Nasal Cannula 4 10/19/21 08:35 10/19/21 08:35 10/19/21 08:35 10/19/21 08:35 10/19/21 10:32 10/19/21 08:35 10/19/21 10:32 FiO2 50 10/16/21 07:45 Oxygen Flow Rate (L/min) 4 Oxygen Delivery Method Nasal Cannula Weight: 235 lb 0.204 oz Body Mass Index (BMI) 39.1 Intake & Output: Intake and Output for Last 24 Hours 10/17/21 10/18/21 10/19/21 23:59 23:59 23:59 Intake Total 1081.25 / 1096.25 1170.00 / 1170.00 50 / 50 Output Total 825 / 825 1175 / 1175 300 / 300 Balance 256.25 / 271.25 -5.00 / -5.00 -250 / -250 Lab / Micro Data Result Diagrams: 10/19/21 06:55 10/19/21 06:55 Labs: Laboratory Results - last 24 hr 10/18/21 11:30: POC Glucose 312 H 10/18/21 16:05: POC Glucose 298 H 10/18/21 21:49: POC Glucose 276 H 10/19/21 06:55: WBC 12.1 H, RBC 3.31 L, Hgb 9.4 L, Hct 30.2 L, MCV 91.2, MCH 28.4, MCHC 31.1 L, RDW Std Deviation 51.6 H, RDW Coeff of Magen 15.4 H, Plt Count 147 L, MPV 10.7, Immature Gran % (Auto) 0.700, Neut % (Auto) 93.3 H, Lymph % (Auto) 3.8 L, Tate % (Auto) 2.1, Eos % (Auto) 0.0, Baso % (Auto) 0.1, Absolute Neuts (auto) 11.3 H, Absolute Lymphs (auto) 0.46 L, Nucleated RBC % 0 10/19/21 06:55: Sodium 139, Potassium 3.9, Chloride 107, Carbon Dioxide 27.0, Anion Gap 5, BUN 77 H, Creatinine 1.78 H, Estim Creat Clear Calc 28.35, Est GFR (MDRD) Af Amer 37 L, Est GFR (MDRD) Non-Af 30 L, BUN/Creatinine Ratio 43.3 H, Glucose 335 H, Calcium 9.4, Total Bilirubin 0.70, AST 14 L, ALT 30, Alkaline Phosphatase 114, Total Protein 6.8, Albumin 2.4 L, Globulin 4.4 H, Albumin/Globulin Ratio 0.5 L 10/19/21 08:41: POC Glucose 325 H Micro: Microbiology 10/14/21 12:35 Blood Culture (Wb) - Anticubital Left Blood Culture - Preliminary Proteus mirabilis 10/14/21 12:46 Blood Culture (Wb) - Anticubital Right Blood Culture - Preliminary No growth in 48 hours. 10/16/21 09:50 Nasal Secretion SARS-CoV-2 Antigen (Rapid) - Final 10/14/21 14:30 Wound - Toe Gram Stain - Final 10/14/21 14:30 Wound - Toe Wound Culture - Final Proteus mirabilis 10/15/21 06:17 Stool Stool Occult Blood (JARRETT) - Final Occult Blood Positive Radiography Diagnostic Testing: Radiology Impression Echocardiogram 10/17/21 17:43 Interpretation Summary The study was technically difficult. Based upon the 2D echocardiographic and contrast enhanced images obtained there appears to be grossly normal left ventricular size, wall motion, and systolic function. The estimated ejection fraction is 55 %. The left atrium is mildly enlarged. Mild focal mitral valve calcification of the anterior leaflet. The mitral valve chordae are thickened and/or calcified. Moderate (2+) mitral valve insufficiency. Moderate (2+) tricuspid valve insufficiency. Trivial aortic valve insufficiency. Trivial pulmonic valve insufficiency. Right ventricular systolic pressure estimated to be 55 mmHg c/w pulmonary hypertension. Diastolic function is indeterminate. Ordering Physician: Cristina Garza Referring Physician: Froy Gonzales Performed By: Nancy Squires, [facility] Venous Doppler Study 10/17/21 17:43 Interpretation Summary Deep veins of the lower extremities are bilaterally patent and compressible segmentally. There is no evidence of deep vein thrombosis on either side. Valvular competence appears intact within the proximal deep venous systems bilaterally. The great saphenous veins appear bilaterally patent and compressible segmentally. Ordering Physician: Cristina Garza Performed By: Aydin Cline, RVT Lung Scan-VQ NM 10/17/21 17:46 IMPRESSION: Low probability of pulmonary embolism. Central clumping of the ventilatory agent suggestive of air way disease. Electronically Signed: Butch Ling MD at 12:07 EDT , Physical Exam Const alert, oriented x3 and no apparent distress HEENT head/scalp atraumatic, moist oral mucous membranes and oropharynx normal Eyes conjunctivae normal and no scleral icterus Neck no lymphadenopathy and supple Resp Effort and Inspection: able to speak in complete sentences and symmetric chest movement Auscultation: diminished lung sounds Cardio regular rate, regular rhythm, S1 normal heart sound and S2 normal heart sound GI normal to inspection, nondistended, normoactive bowel sounds, soft to palpation and non-tender Extremity normal to inspection General Extremity: edema bilateral lower extremity Details: mild Neuro oriented x3, moves all extremities, no focal motor deficits and no sensory deficits noted Sensorium / Orientation: awake and alert Psych affect normal Assessment & Plan Assessment/Plan (1) Decubitus ulcer of dorsum of foot, stage 2: (2) Anemia: PLAN: Plan 1. Acute hypoxic respiratory failure secondary to acute COPD exacerbation/acute exacerbation of heart failure with preserved EF -Patient currently on 5 L nasal cannula oxygen, on 3 to 4 L baseline -Continue breathing treatments -Continue IV steroids -Continue IV Lasix -Echocardiogram EF 55% 2. Acute on chronic anemia likely secondary to GI bleed -Hemoglobin 9.4 -Patient received 2 units packed red blood cells 10/14/2021, hemoglobin stable since -GI following, plan for EGD and possibly colonoscopy 10/20/2021 -Continue PPI -Hold aspirin 3. Worsening chronic left foot ulcers with positive Proteus -Patient had bedside wound debridement 10/14/2021 -X-ray demonstrates nondisplaced fracture of the proximal phalanx -Cultures positive for Proteus continue IV ceftriaxone -Wound nurse and podiatry following 4. New onset atrial fibrillation with RVR -Patient transition from Cardizem drip yesterday to p.o. Cardizem per cardiology -Echocardiogram Ef 55% -D-dimer elevated 0.81, VQ scan negative for PE -Bilateral lower extremity duplex negative for DVT -Cardiology following 5. Diabetes mellitus type 2 -Continue Lantus -Continue ACH S blood sugars with sliding scale insulin 6. Hypertension/hyperlipidemia/CAD -Continue amlodipine, Coreg -Vital signs per protocol 7. Hypothyroidism -Continue levothyroxine 8. Anxiety and depression -Continue Paxil, trazodone, bupropion DVT prophylaxis-SCDs This patient was seen by Crisitna Garza NP-C under the supervision of Dr. Corbin. 12 minutes spent in clinical coordination of patient's plan of care. Documented by User: Dr. Christophe Corbin DO 10/19/21 17:19 Objective Data Lab / Micro Data Result Diagrams: 10/19/21 06:55 10/19/21 06:55 Assessment & Plan Assessment/Plan (1) Decubitus ulcer of dorsum of foot, stage 2: (2) Anemia: Charges/Coding Addendum Addendum: Patient was seen and examined today independently of Cindy Garza, she is scheduled to undergo an EGD and colonoscopy tomorrow, I briefly talked with gastroenterology about her care. Patient is currently on 4 L of oxygen via nasal cannula. Patient appears to be going in and out of atrial fibrillation alternating with sinus rhythm at times. On examination she appeared older than her stated age, she does not appear to be in any distress. Vital signs as documented. Skin warm and dry and without overt rashes. Neck without JVD, thyroid appears normal, trachea is midline, neck is supple. Lungs clear, normal air movement was noted. Heart exam notable for regular rhythm, normal sounds and absence of murmurs, rubs or gallops. Abdomen unremarkable and without evidence of organomegaly, masses, or abdominal aortic enlargement, bowel sounds are present in all 4 quadrants, no abdominal tenderness was noted. Extremities nonedematous, no cyanosis was noted, no clubbing was noted. Neuro: Cranial nerves II through XII are grossly intact, no focal motor deficits were noted, sensation to light touch and pinprick is intact, motor exam 5/5 throughout. Psych: Patient is alert and oriented x3, she does not appear anxious or depressed, she does not appear agitated. Impression: #1 acute on chronic hypoxic respiratory failure secondary to acute COPD exacerbation with overlying acute exacerbation of diastolic congestive heart failure-continue present treatment at this time, pulse ox will be monitored #2 acute on chronic anemia secondary to GI bleed-etiology unclear at this time, patient will undergo an EGD and a colonoscopy tomorrow, patient cannot be anticoagulated at this time due to the anemia #3 bacteremia with Proteus mirabilis-patient is currently on IV Rocephin, podiatry is participating in her care, it is felt that the blood infection came from a left foot wound. 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, continue care per wound care nurse and podiatry #5 type 2 diabetes-continue to monitor blood sugars and cover with sliding scale insulin as needed #6 paroxysmal atrial fibrillation-cardiology is participating in her care, patient is on rate limiting medication at this time #7 hypothyroidism-patient is currently on Synthroid #8 coronary artery disease-continue present medications, cardiology is participating in her care #9 hyperlipidemia-patient is currently on atorvastatin #10 chronic obstructive pulmonary disease-I have elected to decrease the patient's IV Solu-Medrol and change her aerosol treatments to every 6 hours. #11 acute debility-secondary to multiple medical problems, the plan is for the patient to go to a halfway facility when she is stabilized. I have reviewed Cindy Garza's progress note including her medical assessment and plan of care and with the above additions endorse it. Total clinical time spent by myself addressing the patient's medical issues, reviewing the data, and collaborating with patient's care team: 30 minutes Visit Charges Inpatient E&M: 81136 Subs Hosp L3
[2021-10-19] MEDS: 0.9% Saline Lock 10 ML Syringe IV ×2 (12:59→17:00)
[2021-10-19] MEDS: Bisacodyl 5 MG Tablet 20 MG PO (14:33)
--- NOTE | 2021-10-19 15:05 | WOUNDNOTE ---
Had talked with Dr No yesterday afternoon. states he plans to come assess the foot wounds today 10/19/21. will leave dressing in place at this time.
[2021-10-19] MEDS: Polyethylene Glycol 3350 BOWEL PREP PO (15:12)
[2021-10-19 15:45] LABS: Bedside Glucose 319 mg/dL (74-106)
[2021-10-19 16:00] LABS: Bedside Glucose 316 mg/dL (74-106)
--- NOTE | 2021-10-19 17:09 | PCM.PROGNOTE ---
Subjective Subjective Patient is breathing is a lot better. She is not have any nausea. She not have any chest pain or shortness of breath. Objective Data Objective Data Vital Signs: Vital Signs Temp Pulse Resp BP Pulse Ox O2 Del Method O2 Flow Rate 97.8 F 109 H 16 136/72 H 98 Nasal Cannula 4 10/19/21 15:45 10/19/21 15:47 10/19/21 15:45 10/19/21 15:45 10/19/21 15:45 10/19/21 15:45 10/19/21 15:45 FiO2 50 10/16/21 07:45 Oxygen Flow Rate (L/min) 4 Oxygen Delivery Method Nasal Cannula Weight: 235 lb 0.204 oz Body Mass Index (BMI) 39.1 Intake & Output: Intake and Output for Last 24 Hours 10/17/21 10/18/21 10/19/21 23:59 23:59 23:59 Intake Total 1081.25 / 1096.25 1170.00 / 1170.00 330 / 330 Output Total 825 / 825 1175 / 1175 500 / 500 Balance 256.25 / 271.25 -5.00 / -5.00 -170 / -170 Lab / Micro Data Result Diagrams: 10/19/21 06:55 10/19/21 06:55 Labs: Laboratory Results - last 24 hr 10/18/21 21:49: POC Glucose 276 H 10/19/21 06:55: WBC 12.1 H, RBC 3.31 L, Hgb 9.4 L, Hct 30.2 L, MCV 91.2, MCH 28.4, MCHC 31.1 L, RDW Std Deviation 51.6 H, RDW Coeff of Magen 15.4 H, Plt Count 147 L, MPV 10.7, Immature Gran % (Auto) 0.700, Neut % (Auto) 93.3 H, Lymph % (Auto) 3.8 L, Lewis % (Auto) 2.1, Eos % (Auto) 0.0, Baso % (Auto) 0.1, Absolute Neuts (auto) 11.3 H, Absolute Lymphs (auto) 0.46 L, Nucleated RBC % 0 10/19/21 06:55: Sodium 139, Potassium 3.9, Chloride 107, Carbon Dioxide 27.0, Anion Gap 5, BUN 77 H, Creatinine 1.78 H, Estim Creat Clear Calc 28.35, Est GFR (MDRD) Af Amer 37 L, Est GFR (MDRD) Non-Af 30 L, BUN/Creatinine Ratio 43.3 H, Glucose 335 H, Calcium 9.4, Total Bilirubin 0.70, AST 14 L, ALT 30, Alkaline Phosphatase 114, Total Protein 6.8, Albumin 2.4 L, Globulin 4.4 H, Albumin/Globulin Ratio 0.5 L 10/19/21 08:41: POC Glucose 325 H 10/19/21 11:33: POC Glucose 319 H 10/19/21 15:28: POC Glucose 316 H Micro: Microbiology 10/14/21 12:46 Blood Culture (Wb) - Anticubital Right Blood Culture - Final No growth in 5 days. 10/14/21 12:35 Blood Culture (Wb) - Anticubital Left Blood Culture - Final Proteus mirabilis 10/16/21 09:50 Nasal Secretion SARS-CoV-2 Antigen (Rapid) - Final 10/14/21 14:30 Wound - Toe Gram Stain - Final 10/14/21 14:30 Wound - Toe Wound Culture - Final Proteus mirabilis 10/15/21 06:17 Stool Stool Occult Blood (JARRETT) - Final Occult Blood Positive Radiography Diagnostic Testing: Radiology Impression Venous Doppler Study 10/17/21 17:43 Interpretation Summary Deep veins of the lower extremities are bilaterally patent and compressible segmentally. There is no evidence of deep vein thrombosis on either side. Valvular competence appears intact within the proximal deep venous systems bilaterally. The great saphenous veins appear bilaterally patent and compressible segmentally. Ordering Physician: Cristina Garza Performed By: Aydin Cline RVT Physical Exam Const alert, oriented x3 and no apparent distress HEENT head/scalp atraumatic, moist oral mucous membranes and oropharynx normal Eyes conjunctivae normal and no scleral icterus Neck no lymphadenopathy and supple Resp Effort and Inspection: able to speak in complete sentences and symmetric chest movement Auscultation: diminished lung sounds Cardio regular rate, regular rhythm, S1 normal heart sound and S2 normal heart sound GI normal to inspection, nondistended, normoactive bowel sounds, soft to palpation and non-tender Extremity normal to inspection General Extremity: edema bilateral lower extremity Details: mild Neuro oriented x3, moves all extremities, no focal motor deficits and no sensory deficits noted Sensorium / Orientation: awake and alert Psych affect normal Assessment & Plan Assessment/Plan (1) Anemia: PLAN: She will undergo an EGD and colonoscopy to determine the etiology of her blood loss anemia. She was explained alternatives, risk, benefits include not withstanding bleeding, infection, sepsis, perforation, need for emergent or . Have an ASA of 3. Charges/Coding Visit Charges Inpatient E&M: 57152 Subs Hosp L2
--- NOTE | 2021-10-19 17:52 | PCM.PROGNOTE ---
Subjective Subjective This is a 66-year-old female who is seen bedside today for follow-up of chronic ulcerations of the left foot. She states that she is feeling well today.? She states they are planning to do a scope on her tomorrow.? She still admits pain in her left hallux secondary to fracture. She denies any constitutional symptoms.? She has no further complaints today. Objective Data Objective Data Vital Signs: Vital Signs Temp Pulse Resp BP Pulse Ox O2 Del Method O2 Flow Rate 97.8 F 109 H 16 136/72 H 98 Nasal Cannula 4 10/19/21 15:45 10/19/21 15:47 10/19/21 15:45 10/19/21 15:45 10/19/21 15:45 10/19/21 15:45 10/19/21 15:45 FiO2 50 10/16/21 07:45 Oxygen Flow Rate (L/min) 4 Oxygen Delivery Method Nasal Cannula Weight: 106.6 kg Body Mass Index (BMI) 39.1 Intake & Output: Intake and Output for Last 24 Hours 10/17/21 10/18/21 10/19/21 23:59 23:59 23:59 Intake Total 1081.25 / 1096.25 1170.00 / 1170.00 330 / 330 Output Total 825 / 825 1175 / 1175 500 / 500 Balance 256.25 / 271.25 -5.00 / -5.00 -170 / -170 Lab / Micro Data Result Diagrams: 10/19/21 06:55 10/19/21 06:55 Labs: Laboratory Results - last 24 hr 10/18/21 21:49: POC Glucose 276 H 10/19/21 06:55: WBC 12.1 H, RBC 3.31 L, Hgb 9.4 L, Hct 30.2 L, MCV 91.2, MCH 28.4, MCHC 31.1 L, RDW Std Deviation 51.6 H, RDW Coeff of Magen 15.4 H, Plt Count 147 L, MPV 10.7, Immature Gran % (Auto) 0.700, Neut % (Auto) 93.3 H, Lymph % (Auto) 3.8 L, [place] % (Auto) 2.1, Eos % (Auto) 0.0, Baso % (Auto) 0.1, Absolute Neuts (auto) 11.3 H, Absolute Lymphs (auto) 0.46 L, Nucleated RBC % 0 10/19/21 06:55: Sodium 139, Potassium 3.9, Chloride 107, Carbon Dioxide 27.0, Anion Gap 5, BUN 77 H, Creatinine 1.78 H, Estim Creat Clear Calc 28.35, Est GFR (MDRD) Af Amer 37 L, Est GFR (MDRD) Non-Af 30 L, BUN/Creatinine Ratio 43.3 H, Glucose 335 H, Calcium 9.4, Total Bilirubin 0.70, AST 14 L, ALT 30, Alkaline Phosphatase 114, Total Protein 6.8, Albumin 2.4 L, Globulin 4.4 H, Albumin/Globulin Ratio 0.5 L 10/19/21 08:41: POC Glucose 325 H 10/19/21 11:33: POC Glucose 319 H 10/19/21 15:28: POC Glucose 316 H Micro: Microbiology 10/14/21 12:46 Blood Culture (Wb) - Anticubital Right Blood Culture - Final No growth in 5 days. 10/14/21 12:35 Blood Culture (Wb) - Anticubital Left Blood Culture - Final Proteus mirabilis 10/16/21 09:50 Nasal Secretion SARS-CoV-2 Antigen (Rapid) - Final 10/14/21 14:30 Wound - Toe Gram Stain - Final 10/14/21 14:30 Wound - Toe Wound Culture - Final Proteus mirabilis 10/15/21 06:17 Stool Stool Occult Blood (JARRETT) - Final Occult Blood Positive Radiography Diagnostic Testing: Radiology Impression Venous Doppler Study 10/17/21 17:43 Interpretation Summary Deep veins of the lower extremities are bilaterally patent and compressible segmentally. There is no evidence of deep vein thrombosis on either side. Valvular competence appears intact within the proximal deep venous systems bilaterally. The great saphenous veins appear bilaterally patent and compressible segmentally. Ordering Physician: Cristina Garza Performed By: Aydin Cline RVT Physical Exam Const alert, oriented x3 and no apparent distress General Appearance: comfortable and anxious HEENT normocephalic Eyes General Eye: normal appearance of both eyes Neck General: normal visual inspection Lymph Lymphatic: no lymphadenopathy noted and lymphedema mild Lymphatic Narrative: Bilateral lower extremity Resp normal respiratory effort Resp Narrative: On oxygen Cardio regular rate and regular rhythm Extremity normal capillary refill, no joint enlargement and no calf tenderness Extremity Narrative: Right foot: DP and PT pulses weakly palpable. Capillary fill time less than 5 seconds to the digits. Webspaces are clean dry and intact. Skin is mildly xerotic, shiny, thin/atrophic. Mild nonpitting edema noted to the lower extremity with localized rubor to the anterior aspect of the tibia consistent with chronic venous insufficiency. There is also lymphedema noted. Left foot: DP and PT pulses weakly palpable. Cap fill time less than 5 seconds to the digit. Webspaces are clean dry and intact. There is diffuse nonpitting edema noted to the dorsal aspect of the foot, this is improving. There is erythema of the Left hallux extending proximally to the first metatarsal head dorsally which is decreasing. There is mild nonpitting edema noted to the lower extremity with localized rubor to the anterior aspect of the tibia consistent with chronic venous insufficiency. There is also lymphedema noted. Skin no rashes or lesions noted, skin turgor normal and no jaundice General Skin Exam: erythema Wound Narrative: Left lower extremity: Left heel decubitus ulceration Clark stage II. Ulcerative site demonstrates slight localized erythema about the heel with no purulent drainage, no malodor, no palpable fluctuance, no bogginess, no visible abscess or other localized signs of infection. Ulcerative base demonstrates thickened yellow fibrotic tissue. Left hallux dorsomedial wound noted with ecchymosis/dry non-vaiable about the dorsal and medial hallux extending to the IPJ. No purulent drainage expressible. No malodor noted. No palpable fluctuance, visible abscess, no bogginess noted to the hallux. There is also peeling skin noted about the hallux. Neuro oriented x3 and moves all extremities Assessment & Plan Assessment/Plan (1) Diabetes mellitus with diabetic polyneuropathy: (2) Decubitus ulcer of left heel, stage 2: (3) Decubitus ulcer of dorsum of foot, stage 2: (4) Cellulitis: (5) Chronic heel ulcer: (6) Diabetic foot ulcers: (7) Fall: (8) Fatigue: (9) Chronic respiratory failure with hypoxia, on home oxygen therapy: (10) Nondisplaced fracture of distal phalanx of right great toe, initial encounter for closed fracture: (11) Renal insufficiency: (12) CAD (coronary artery disease): (13) Atrial fibrillation: (14) Anemia: PLAN: Plan Patient seen and evaluated She reports continued pain to her left hallux following her fall in the [facility]21. Her breathing has improved and she is well enough to undergo endoscopy by GI tomorrow. Left lower extremity Wounds: Left heel decubitus ulceration Clark stage II. Ulcerative site demonstrates slight localized erythema about the heel with no purulent drainage, no malodor, no palpable fluctuance, no bogginess, no visible abscess or other localized signs of infection. Ulcerative base demonstrates thickened yellow fibrotic tissue. Ulceration site measures 1.5 cm x 1.5 cm x 0.1 cm. Left hallux dorsomedial wound noted with subdermal dry non-viable tissue/ecchymosis about the dorsal and medial hallux digit extending to the IPJ. This wound site measures 1.8 cm x 2 cm x 0.1 cm. No purulent drainage expressible from the dorsal medial aspect today. No malodor noted. No palpable fluctuance, visible abscess, no bogginess noted to the hallux. Erythema has decreased. There is also peeling skin noted about the hallux. She underwent bedside debridement of the left hallux on 10/14/2021. Site was again reexamined however there is still ecchymosis about the hallux today secondary to her fracture of the distal phalanx, however there is also dry/nonviable tissue noted at the dorsomedial hallux. Dressing: Betadine soaked Adaptic, 4 x 4 gauze, ABD to the heel, Kerlix, Kenny wrap lightly rolled onto the foot. Nursing to perform dressing changes daily. May reinforce for strikethrough. Apply Santyl to left heel daily with wet to dry gauze. Edema/offload: She is to elevate lower extremity at all times of rest with pillow under the lower leg to elevate the heel off the bed. She may be weightbearing to the foot with the assistance of a walker for bathroom privileges. Vascular: DP and PT pulses were weakly palpable, capillary fill time is less than 5 seconds to the digits. Vascular studies performed but incomplete secondary to patient not allowing full procedure to be performed. Examination performed did show biphasic flow of the PT and DP pulses on the right foot and biphasic flow of the PT pulse on the left foot with a diminished DP pulse on the left foot. She did demonstrate an elevated D-dimer of 0.81. Venous studies were negative for DVT of both legs. VQ scan negative for PE. Infection: Blood cultures obtained 10/14/2021 demonstrate Proteus Mirabilis. Wound cultures obtained 10/14/2021 demonstrate Proteus Mirabilis. Staff aureus protein A PCR was negative. MRSA PCR negative. Recent blood cultures were negative for growth. Her erythema about the hallux and first MPJ has decreased however she still demonstrates ecchymosis today secondary to her fracture of the distal phalanx, however there is dry/nonviable tissue and eschar about the dorsomedial hallux. WBC currently at 12.1. She is currently on IV ceftriaxone. Radiographs: Radiographic images of the left foot obtained 10/14/2021 demonstrate nondisplaced fracture of the distal phalanx of the hallux secondary to her fall earlier today. There is also nonspecific edema about the dorsal aspect of the foot. Pain: She may take hydrocodone-acetaminophen as needed for pain Host factors: DM type II with peripheral polyneuropathy, chronic venous insufficiency bilaterally, lymphedema bilaterally Medicine following for medical management, this is greatly appreciated GI specialist is currently following and plans to perform scope to further evaluate for bleeding. Discussed with nursing scope is to be planned for 10/20/2021. Podiatry will continue to follow for local wound care. I discussed with her today that I feel her left hallux may not heal with the recent arterial studies performed and the deterioration of the overlying tissue. I discussed that this digit poses continued infection risk or risk of osteomyelitis due to nonhealing. I discussed that future infections may be worse in nature due to her diabetes and she could pose a risk of limb loss. I discussed with her today amputation of the left hallux. I discussed that I would perform the procedure after her scope was completed. Currently trying to schedule procedure for 10/21/2021. Her family would like her to be placed in a care home facility for continued care following her discharge. Please do not hesitate to call for any questions or concerns Jr. Leny MorganPCathyM. [facility] [phone] Note: [employer] speech recognition bird trapper software was used to create portions of this document. Sound-alike and misspelled words, as well as other bird trapper errors may be contained in the documentation.
[2021-10-19] MEDS: LORazepam 1 MG Tablet PO (21:57)
[2021-10-19] MEDS: Atorvastatin Calcium 80 MG Tablet PO (21:57)
[2021-10-19] MEDS: traZODone 100 MG Tablet PO (21:57)
[2021-10-19] MEDS: Ensure Clear 120 ML Liquid PO (21:58)
[2021-10-19] MEDS: Insulin Glargine-YFGN 100 UNIT/ML Pen 37 UNIT SC (22:00)
[2021-10-19] MEDS: Paroxetine 20 MG Tablet 60 MG PO (22:01)
[2021-10-19 22:30] LABS: Bedside Glucose 279 mg/dL (74-106)
[2021-10-20] VITALS (19 sets, daily range): BP systolic 140–185; BP diastolic 51–149; PULSE 98–137; RESP 16–24; TEMP 36.4–36.9; O2SAT 96–100
--- NOTE | 2021-10-20 05:00 | EKG12_ITS ---
Test Reason : RYTHM CHANGE Blood Pressure : / mmHG Vent. Rate : 113 BPM Atrial Rate : 000 BPM P-R Int : 000 ms QRS Dur : 082 ms QT Int : 326 ms P-R-T Axes : 000 071 -12 degrees QTc Int : 447 ms Atrial fibrillation /Flutter with rapid ventricular response Nonspecific T wave abnormality Abnormal ECG Confirmed by HENRIETTA ROSS, MON[place] ([id number]), purchase request editor JASON PEREIRA ([id number]) on 10/25/2021 8:04:58 AM Referred By: CHRISTIE Confirmed By:MONTANA SHRESTHA MD
[2021-10-20] MEDS: Lactated Ringers 1,000 ML 15 ML IV (06:27)
[2021-10-20 06:31] LABS: Bedside Glucose 230 mg/dL (74-106)
[2021-10-20 06:58] LABS: Absolute Lymphocyte Count 0.44 X10^3/uL (0.83-4.51); Absolute Neutrophil Count 11.5 X10^3/uL (2.0-7.7); Basophil# 0.01 X10^3/uL; Basophil% 0.1 % (0-1); Hematocrit 32.5 % (37-47); Hemoglobin 10.2 g/dL (12.0-15.0); Lymphocyte # 0.44 X10^3/ul (0.83-4.51); Lymphocyte % 3.5 % (19-41); Mean Corp Hgb Conc 31.4 g/dL (32-36); Mean Corpuscular Hgb 28.6 pg (27.0-32.0); Mean Platelet Vol. 10.8 fl (6.2-12.0); Monocyte# 0.44 X10^3/uL; Monocyte% 3.5 % (0-10); NRBC Flagged by Analyzer 0 % (0-5); Neutrophil # 11.52 X10^3/uL (2.7-7.7); Neutrophil % 92.4 % (47-70); POSITIVE DIFFERENTIAL YES; Platelet Count 147 K/mm3 (150-450); RBC Distribution Width SD 50.1 fl (35.1-43.9); Red Blood Count 3.57 M/mm3 (4.2-5.4); White Blood Count 12.5 K/mm3 (4.4-11.0)
[2021-10-20 07:00] LABS: Differential Indicated SCAN CRITERIA MET
--- NOTE | 2021-10-20 07:00 | IMM_PTH ---
PATIENT: SONA WILSON LOC: [facility] U#:[id number] AGE/SX: 66/F ROOM: [facility] RE10/14/[address]: Dr. Quynh Aldrich MD : 1955 BED: 1 DIS: 10/22/2021 SPEC #: [id number] RECD: 10/20/21 14:14 STATUS: ANNIKA RELeonarda #: [id number] ACE: 10/20/21 07:[address]: Torrey Mccrary DEPT: IMMUNOHISTOCHEMISTRY RECD BY: Leeanne Fermin ENTERED: 10/20/21 14:15 SP TYPE: IMMUNO OTHR DR: MD Dr. Augie Graham MD Dr. Michael Marshall, DPM Dr. Mark Tereletsky, DO Dr. Paul Moodispaw, MD Dr. Paul Nielsen, MD Tissues: A - Stomach, NOS Procedures: H Pylori (initial) PHYSICIAN & [address] [address] SPECIMEN INFORMATION: Tissue Source: A ? Gastric ulcer, biopsy Clinical Info: Urban Specimen Number: [id number] CPT code: 05343 METHODOLOGY: Deparaffinized sections of prefer/formalin-fixed tissue or PAP/DQ stained slides are incubated with monoclonal/polyclonal antibodies/oligonucleotide probes. Localization is made via biotin free immunoperoxidase method. Appropriate controls are performed and reacted as expected. Results on target cell population are indicated in the following table: RESULTS: ANTIBODY / CLONE RESULT Block A H Pylori (polyclonal) negative These tests were developed and their performance characteristics determined by [facility]. They may not have been cleared or approved by the U.S. Food and Drug Administration. The FDA has determined that such clearance or approval is not necessary. The above immunohistochemical/dualISH markers are ordered and reviewed by the Pathologist. INTERPRETATION: A. Gastric ulcer, biopsy: Negative for Helicobacter pylori organisms. DARWIN:maria de jesus 10/21/2021
--- NOTE | 2021-10-20 07:00 | EGD_PTH ---
PATIENT: SOAN WILSON LOC: [facility] U#:[id number] AGE/SX: 66/F ROOM: [facility] RE10/14/[address]: Dr. Quynh Aldrich MD : 1955 BED: 1 DIS: 10/22/2021 SPEC #: [id number] RECD: 10/20/21 09:46 STATUS: ANNIKA AJ #: [id number] ACE: 10/20/21 07:[address]: Torrey Mccrary DEPT: SURGICAL PATHOLOGY RECD BY: Fransisca Clark ENTERED: 10/20/21 11:10 SP TYPE: EGD BIOPSY OTHR DR: MD Dr. Augie Graham MD Dr. Michael Marshall, DHEERAJM DO Dr. Froy Lyle MD Dr. Paul Nielsen, MD Tissues: A - Gastric mucous membrane B - Sigmoid colon biopsy C - Rectum, NOS Procedures: Special Stain Group I Surgery Specimen Level IV GMS Stain (control) Comments: @ Ordering doctor for SUIV edited from to @ by RGOOD at 10/20/21 1503 @ Submitting doctor edited from to @ by RGOOD at 10/20/21 1503 HEADER OPERATION: Colonoscopy, EGD (MAC) PRE-OP DIAGNOSIS: Anemia TISSUE SUBMITTED: A ? Gastric ulcer biopsy, B ? Sigmoid polyp, C ? Rectal polyps biopsy MICROSCOPIC DIAGNOSIS A. Gastric ulcer, biopsy: Mild gastritis. See microscopic description and comment. B. Sigmoid polyp, biopsy: Hyperplastic polyp. C. Rectal polyps, biopsy: Fragments of hyperplastic polyp. SJ:maria de jesus 10/21/2021 COMMENT A. The results of immunohistochemistry for Helicobacter pylori will be reported separately ([id number]). A few detached fragments of squamous epithelium with acute inflammation are noted. Special stain for fungi is positive for organisms in these fragments (yeast and pseudohyphae) consistent with Jennifer species; matched control is appropriate. The findings may represent contamination from esophagus. Correlation with clinical, endoscopic findings and appropriate follow up are necessary. Case has been reviewed in consultation with Dr. Villar who concurs with the above diagnosis. IDC:AM MICROSCOPIC DESCRIPTION Slides are reviewed. A. The specimen shows fragments of gastric mucosa with chronic inflammatory cell infiltrates in the lamina propria consisting of lymphocytes and plasma cells, consistent with mild chronic gastritis. GROSS DESCRIPTION A - Received in fixative is one container labeled with the patient's name and designated gastric ulcer biopsy. The specimen consists of multiple irregular fragments of light huang soft tissue that in aggregate measure 0.6 x 0.4 x 0.1 cm. The specimen is totally submitted in one cassette. B - Received in fixative is one container labeled with the patient's name and designated sigmoid polyp. The specimen consists of multiple irregular fragments of light huang soft tissue that in aggregate measure 0.6 x 0.4 x 0.2 cm. The specimen is totally submitted in one cassette. C - Received in fixative is one container labeled with the patient's name and designated rectal polyps biopsy. The specimen consists of multiple irregular fragments of light huang soft tissue that in aggregate measure 0.6 x 0.3 x 0.1 cm. The specimen is totally submitted in one cassette. / SJ:maria de jesus 10/20/2021 TC:1 CPT: 48175 x3, [id number]
[2021-10-20 07:08] LABS: International Normalized Ratio 1.4; Partial Thromboplast Time 24.1 Seconds (24.1-36.2); Prothrombin Time (Protime)PT. 16.5 SECONDS (11.7-14.9)
[2021-10-20 07:15] LABS: ALB/GLOB Ratio 0.6 RATIO (0.9-2.4); AST(SGOT) 25 U/L (15-37); Alanine Aminotransfer ALT/SGPT 40 U/L (13-56); Albumin, Serum 2.6 g/dL (3.2-5.0); Alkaline Phosphatase 115 U/L (45-117); Anion Gap 6 (5-15); BUN 61 mg/dL (7-18); BUN/Creat Ratio 43.3 RATIO (10-20); Calcium,Total 9.4 mg/dL (8.5-10.1); Chloride 108 mmol/L (98-107); Creatinine, Serum 1.41 mg/dL (0.55-1.02); EST Glomerular Filtration Rate 40 mL/min (>60); Est Glom Filt Rate - Afr Amer 48 mL/min (>60); Estimated Creatinine Clearance 35.79 ml/min; Globulin 4.1 g/dL (2.2-4.2); Glucose 250 mg/dL (74-106); Potassium 3.4 mmol/L (3.5-5.1); Protein, Total 6.7 g/dL (6.4-8.2); Sodium Level 142 mmol/L (136-145)
[2021-10-20 07:32] LABS: Differential Comment SCANNED
[2021-10-20 07:35] LABS: Hemoglobin A1c 5.8 % (3.8-5.6)
--- NOTE | 2021-10-20 07:59 | OP.EGD_ITS ---
Patient Name: Monique Lincoln Procedure Date: 10/20/2021 7:14 AM Date of : 1955 Age: 66 Procedure: Upper GI endoscopy Indications: Acute post hemorrhagic anemia, Iron deficiency anemia Providers: Torrey Mccrary DO Medicines: Monitored Anesthesia Care Patient Profile: This is a 66 year old female. Refer to note in patient chart for documentation of history and physical. Patient has symptoms. Complications: No immediate complications. Procedure: Pre-Anesthesia Assessment: - Prior to the procedure, a History and Physical was performed, and patient medications and allergies were reviewed. The risks and benefits of the procedure and the sedation options and risks were discussed with the patient. All questions were answered and informed consent was obtained. Patient identification and proposed procedure were verified by the physician in the pre-procedure area. Mental Status Examination: alert and oriented. Airway Examination: normal oropharyngeal airway and neck mobility. Respiratory Examination: clear to auscultation. CV Examination: normal. Prophylactic Antibiotics: The patient does not require prophylactic antibiotics. Prior Anticoagulants: The patient has taken no previous anticoagulant or antiplatelet agents. After reviewing the risks and benefits, the patient was deemed in satisfactory condition to undergo the procedure. The anesthesia plan was to use moderate sedation / analgesia (conscious sedation). Immediately prior to administration of medications, the patient was re-assessed for adequacy to receive sedatives. The heart rate, respiratory rate, oxygen saturations, blood pressure, adequacy of pulmonary ventilation, and response to care were monitored throughout the procedure. The physical status of the patient was re-assessed after the procedure. After obtaining informed consent, the endoscope was passed under direct vision. Throughout the procedure, the patient's blood pressure, pulse, and oxygen saturations were monitored continuously. The colonoscope was introduced through the mouth, and advanced to the second part of duodenum. The upper GI endoscopy was accomplished without difficulty. The patient tolerated the procedure well. Scope In: 7:18:40 AM Scope Out: 7:23:29 AM Total Procedure Duration Time 0 hours 4 minutes 49 seconds Findings: Diffuse, yellow plaques were found in the entire esophagus. One non-bleeding cratered gastric ulcer with no stigmata of bleeding was found in the gastric antrum. The lesion was 6 mm in largest dimension. Biopsies were taken with a cold forceps for histology. Verification of patient identification for the specimen was done. Estimated blood loss was minimal. No gross lesions were noted in the second portion of the duodenum. Impression: - Esophageal plaques were found, consistent with candidiasis. - Non-bleeding gastric ulcer with no stigmata of bleeding. Biopsied. - No gross lesions in the second portion of the duodenum. Recommendation: - Discharge patient to home. - Advance diet as tolerated. - Use Protonix (pantoprazole) 40 mg PO BID. - Continue present medications. Procedure Code(s): --- Professional --- 63602, Esophagogastroduodenoscopy, flexible, transoral; with biopsy, single or multiple CPT copyright 2017 [employer]. All rights reserved. The codes documented in this report are preliminary and upon podiatric surgeon review may be revised to meet current compliance requirements. Torrey Mccrary DO 10/20/2021 7:59:07 AM This report has been signed electronically. Number of Addenda: 1 Note Initiated On: 10/20/2021 7:14 AM Addendum Number: 1 Addendum Date: 12/01/2021 6:05:01 AM MAC was used as sedation for this procedure. Torrey Mccrary DO 12/01/2021 6:05:04 AM This report has been signed electronically.
--- NOTE | 2021-10-20 08:00 | OP.CCLET_ITS ---
12/01/2021 rFoy Gonzales MD [address] [id number] Re : Upper GI endoscopy procedure for Monique Lincoln Dear Dr. Gonzales This procedure was performed on September. My impressions and recommendations are as follows: Impressions : - Esophageal plaques were found, consistent with candidiasis. - Non-bleeding gastric ulcer with no stigmata of bleeding. Biopsied. - No gross lesions in the second portion of the duodenum. Recommendations : - Discharge patient to home. - Advance diet as tolerated. - Use Protonix (pantoprazole) 40 mg PO BID. - Continue present medications. My findings are described in the full procedure note, which is enclosed. If I can be of further assistance, please feel free to contact me at . Sincerely, Torrey Mccrary, 10/20/2021 7:59:07 AM This report has been signed electronically.
--- NOTE | 2021-10-20 08:04 | OP.COLON_ITS ---
Patient Name: Monique Lincoln Procedure Date: 10/20/2021 7:23 AM Date of : 1955 Age: 66 Procedure: Colonoscopy Indications: Iron deficiency anemia Providers: Torrey Mccrary DO Medicines: Monitored Anesthesia Care Patient Profile: This is a 66 year old female. Refer to note in patient chart for documentation of history and physical. Patient has symptoms. Last Colonoscopy: date unknown. Unable to locate last colonoscopy report. Complications: No immediate complications. Procedure: Pre-Anesthesia Assessment: - Prior to the procedure, a History and Physical was performed, and patient medications and allergies were reviewed. The risks and benefits of the procedure and the sedation options and risks were discussed with the patient. All questions were answered and informed consent was obtained. Patient identification and proposed procedure were verified by the physician in the pre-procedure area. Mental Status Examination: alert and oriented. Airway Examination: normal oropharyngeal airway and neck mobility. Respiratory Examination: clear to auscultation. CV Examination: normal. Prophylactic Antibiotics: The patient does not require prophylactic antibiotics. Prior Anticoagulants: The patient has taken no previous anticoagulant or antiplatelet agents. After reviewing the risks and benefits, the patient was deemed in satisfactory condition to undergo the procedure. The anesthesia plan was to use moderate sedation / analgesia (conscious sedation). Immediately prior to administration of medications, the patient was re-assessed for adequacy to receive sedatives. The heart rate, respiratory rate, oxygen saturations, blood pressure, adequacy of pulmonary ventilation, and response to care were monitored throughout the procedure. The physical status of the patient was re-assessed after the procedure. After I obtained informed consent, the scope was passed under direct vision. Throughout the procedure, the patient's blood pressure, pulse, and oxygen saturations were monitored continuously. The Colonoscope was introduced through the anus and advanced to the cecum, identified by appendiceal orifice and ileocecal valve. The colonoscopy was performed without difficulty. The patient tolerated the procedure well. The quality of the bowel preparation was inadequate. Scope In: 7:27:50 AM Scope Out: 7:54:26 AM Total Procedure Duration Time 0 hours 26 minutes 36 seconds Findings: Multiple small and large-mouthed diverticula were found in the entire colon. There was no evidence of diverticular bleeding. A 5 mm polyp was found in the sigmoid colon. The polyp was sessile. The polyp was removed with a hot snare. Resection and retrieval were complete. Verification of patient identification for the specimen was done. Estimated blood loss was minimal. A 3 mm polyp was found in the rectum. The polyp was sessile. The polyp was removed with a cold biopsy forceps. Resection and retrieval were complete. Verification of patient identification for the specimen was done. Estimated blood loss was minimal. Impression: - Preparation of the colon was inadequate. - Severe diverticulosis in the entire examined colon. There was no evidence of diverticular bleeding. - One 5 mm polyp in the sigmoid colon, removed with a hot snare. Resected and retrieved. - One 3 mm polyp in the rectum, removed with a cold biopsy forceps. Resected and retrieved. Recommendation: - Repeat colonoscopy in 2 months for surveillance. - Continue present medications. Procedure Code(s): --- Professional --- 72860, Colonoscopy, flexible; with removal of tumor(s), polyp(s), or other lesion(s) by snare technique 73219, 59, Colonoscopy, flexible; with biopsy, single or multiple CPT copyright 2017 [employer]. All rights reserved. The codes documented in this report are preliminary and upon lawn mower mechanic review may be revised to meet current compliance requirements. Torrey Mccrary DO 10/20/2021 8:04:18 AM This report has been signed electronically. Number of Addenda: 1 Note Initiated On: 10/20/2021 7:23 AM Addendum Number: 1 Addendum Date: 12/01/2021 6:05:13 AM MAC was used as sedation for this procedure. Torrey Mccrary DO 12/01/2021 6:05:17 AM This report has been signed electronically.
--- NOTE | 2021-10-20 08:05 | OP.CCLET_ITS ---
12/01/2021 Froy Gonzales MD [address] [id number] Re : Colonoscopy procedure for Monique Latonia Dear Dr. Gonzales This procedure was performed on September. My impressions and recommendations are as follows: Impressions : - Preparation of the colon was inadequate. - Severe diverticulosis in the entire examined colon. There was no evidence of diverticular bleeding. - One 5 mm polyp in the sigmoid colon, removed with a hot snare. Resected and retrieved. - One 3 mm polyp in the rectum, removed with a cold biopsy forceps. Resected and retrieved. Recommendations : - Repeat colonoscopy in 2 months for surveillance. - Continue present medications. My findings are described in the full procedure note, which is enclosed. If I can be of further assistance, please feel free to contact me at . Sincerely, Torrey Mccrary, 10/20/2021 8:04:18 AM This report has been signed electronically.
[2021-10-20] MEDS: Juven (unflavored) Packet 1 PACKET PO ×2 (09:21→17:08)
[2021-10-20] MEDS: Potassium Chloride Oral Tablet 20 MEQ PO (09:25)
[2021-10-20] MEDS: HYDROcodone Bitartrate/Apap 5/325 Tablet PO ×2 (09:25→17:07)
[2021-10-20] MEDS: Cholecalciferol (VIT D3) 25 MCG TABLET (1,000 UNITS) 50 MCG PO (09:26)
[2021-10-20] MEDS: buPROPion (XL) 300 MG TABLET.XL PO (09:26)
[2021-10-20] MEDS: Pantoprazole Sodium 40 MG Tablet PO ×2 (09:26→21:11)
[2021-10-20] MEDS: Montelukast 10 MG Tablet PO (09:26)
[2021-10-20] MEDS: Carvedilol 12.5 MG Tablet PO ×2 (09:27→21:17)
[2021-10-20] MEDS: amLODIPine 10 MG Tablet PO (09:27)
[2021-10-20] MEDS: Furosemide 40 MG/4 ML Vial IV ×2 (09:28→18:12)
[2021-10-20] MEDS: Ensure Clear 120 ML Liquid PO ×4 (09:31→21:07)
[2021-10-20] MEDS: 0.9% Saline Lock 10 ML Syringe IV ×3 (09:32→23:09)
[2021-10-20] MEDS: Fluticasone 0.05% 1 SPRAY NASAL.SRY NASAL (09:36)
[2021-10-20] MEDS: Ceftriaxone 1 GM/50 ML BAG IV (09:37)
[2021-10-20] MEDS: Insulin Lispro 100 UNIT/ML INSULN.PEN 10 UNIT SC ×4 (09:46→21:14)
[2021-10-20] MEDS: Insulin Lispro 100 UNIT/ML INSULN.PEN SC ×4 (09:46→21:08)
[2021-10-20 12:16] LABS: Bedside Glucose 210 mg/dL (74-106)
[2021-10-20] MEDS: Ipratropium/Albuterol Sulfate 3 ML AMPUL.NEB INHALATION ×2 (13:18→19:29)
[2021-10-20] MEDS: Gabapentin 100 MG Capsule PO ×2 (14:11→21:11)
--- NOTE | 2021-10-20 14:56 | PCM.PN.HOSP ---
Documented by User: Laura Suarez NP, [employer]LECT[employer]ING [employer]PER[employer]OR-[employer] 10/20/21 15:14 Subjective Subjective Patient seen and examined. Denies nausea, vomiting. Denies abdominal pain. Complains of left foot pain. Objective Data Objective Data Vital Signs: Vital Signs Temp Pulse Resp BP Pulse Ox O2 Del Method O2 Flow Rate 98 F 107 H 18 148/65 H 100 Nasal Cannula 4 10/20/21 12:02 10/20/21 13:18 10/20/21 13:18 10/20/21 12:02 10/20/21 12:02 10/20/21 12:02 10/20/21 12:02 FiO2 50 10/16/21 07:45 Oxygen Flow Rate (L/min) 4 Oxygen Delivery Method Nasal Cannula Weight: 241 lb 2.971 oz Body Mass Index (BMI) 39.1 Intake & Output: Intake and Output for Last 24 Hours 10/18/21 10/19/21 10/20/21 23:59 23:59 23:59 Intake Total 1170.00 / 1170.00 330 / 1330 1525 / 1525 Output Total 1175 / 1175 500 / 500 Balance -5.00 / -5.00 -170 / 830 1525 / 1525 Lab / Micro Data Result Diagrams: 10/20/21 06:45 10/20/21 06:45 Labs: Laboratory Results - last 24 hr 10/19/21 11:33: POC Glucose 319 H 10/19/21 15:28: POC Glucose 316 H 10/19/21 21:51: POC Glucose 279 H 10/20/21 06:02: POC Glucose 230 H 10/20/21 06:45: WBC 12.5 H, RBC 3.57 L, Hgb 10.2 L, Hct 32.5 L, MCV 91.0, MCH 28.6, MCHC 31.4 L, RDW Std Deviation 50.1 H, RDW Coeff of Magen 15.0 H, Plt Count 147 L, MPV 10.8, Immature Gran % (Auto) 0.500, Neut % (Auto) 92.4 H, Lymph % (Auto) 3.5 L, Hudspeth % (Auto) 3.5, Eos % (Auto) 0.0, Baso % (Auto) 0.1, Absolute Neuts (auto) 11.5 H, Absolute Lymphs (auto) 0.44 L, Nucleated RBC % 0, Differential Comment SCANNED 10/20/21 06:45: Sodium 142, Potassium 3.4 L, Chloride 108 H, Carbon Dioxide 28.0, Anion Gap 6, BUN 61 H, Creatinine 1.41 H, Estim Creat Clear Calc 35.79, Est GFR (MDRD) Af Amer 48 L, Est GFR (MDRD) Non-Af 40 L, BUN/Creatinine Ratio 43.3 H, Glucose 250 H, Calcium 9.4, Total Bilirubin 0.50, AST 25, ALT 40, Alkaline Phosphatase 115, Total Protein 6.7, Albumin 2.6 L, Globulin 4.1, Albumin/Globulin Ratio 0.6 L 10/20/21 06:45: PT 16.5 H, INR 1.4, APTT 24.1 10/20/21 06:45: Hemoglobin A1c 5.8 H 10/20/21 09:08: POC Glucose 210 H Micro: Microbiology 10/14/21 12:46 Blood Culture (Wb) - Anticubital Right Blood Culture - Final No growth in 5 days. 10/14/21 12:35 Blood Culture (Wb) - Anticubital Left Blood Culture - Final Proteus mirabilis 10/16/21 09:50 Nasal Secretion SARS-CoV-2 Antigen (Rapid) - Final 10/14/21 14:30 Wound - Toe Gram Stain - Final 10/14/21 14:30 Wound - Toe Wound Culture - Final Proteus mirabilis 10/15/21 06:17 Stool Stool Occult Blood (JARRETT) - Final Occult Blood Positive Physical Exam Const alert and oriented x3 HEENT normocephalic and moist oral mucous membranes Eyes PERRL, EOMs intact bilaterally and conjunctivae normal Neck no lymphadenopathy Resp normal respiratory effort and clear to auscultation bilaterally Cardio Cardio Narrative: A. fib, rate controlled Peripheral Pulses: pulses 2+ throughout GI normal to inspection, nondistended, normoactive bowel sounds, non-tender and non-distended Extremity normal to inspection Skin no rashes or lesions noted Lesions: no lesions Rashes: no rashes Trauma: no lacerations or abrasions Neuro CN's II-XII intact bilaterally, no focal motor deficits, no sensory deficits noted and deep tendon reflexes 2+ bilaterally Psych mental status grossly normal and affect normal Assessment & Plan Assessment/Plan (1) Atrial fibrillation: (2) Anemia: PLAN: Plan 1. Acute on chronic hypoxic respiratory failure secondary to acute exacerbation of COPD and acute on chronic heart failure with preserved ejection fraction-now on baseline home O2 requirements. Continue supplemental oxygen to maintain O2 sat above 90%. 2. COPD exacerbation-IV Solu-Medrol. Albuterol and DuoNeb aerosols. 3. Acute on chronic heart failure with preserved ejection fraction-echocardiogram with EF 55%, moderate mitral valve insufficiency, moderate tricuspid valve insufficiency. IV Lasix. Strict I&O. Daily weight. 4. Acute on chronic anemia secondary to GI bleed-GI consulted. Colonoscopy without evidence of bleeding, poor prep. EGD with esophageal plaques consistent with candidiasis, nonbleeding gastric ulcer which was biopsied. Continue PPI. Trend CBC. 5. Proteus bacteremia secondary to left great toe neuropathic infected wound-podiatry following. Wound RN consulted. Plan for left hallux amputation 10/21/2021. Continue IV Rocephin. Continue dressing changes as ordered. 6. Suspected new onset atrial fibrillation-cardiology consulted. Did not initiate anticoagulation secondary to GI bleed. Continue rate control regimen. 7. Type 2 diabetes [id number] with sliding scale insulin. Continue home insulin regimen. 8. Hypothyroidism-continue Synthroid regimen. 9. CAD-continue medical management. 10. Hyperlipidemia-continue statin. 11. Depression/anxiety-on bupropion, Ativan, paroxetine. DVT prophylaxis-SCDs This patient was seen by DEVON Woodward under the supervision of Dr. Corbin. Time spent examining patient, reviewing data and subsequent management of care: 16 minutes Documented by User: Dr. Christophe Corbin DO 10/20/21 18:07 Objective Data Lab / Micro Data Result Diagrams: 10/20/21 06:45 10/20/21 06:45 Assessment & Plan Assessment/Plan (1) Atrial fibrillation: (2) Anemia: Charges/Coding Addendum Addendum: Patient was seen and examined today independently of Laura Suarez, I discussed the possibility of her undergoing a left great toe amputation and the patient was not objectionable to this of podiatry felt it needed to be done. I talked to podiatry at length yesterday about this and they will try to set that up for tomorrow. Patient underwent endoscopy today which showed a nonbleeding gastric ulcer in the stomach. There was severe diverticulosis of the colon noted to be present. On examination she appeared older than her stated age, she does not appear to be in any distress. Vital signs as documented. Skin warm and dry and without overt rashes. Neck without JVD, thyroid appears normal, trachea is midline, neck is supple. Lungs clear, normal air movement was noted. Heart exam notable for regular rhythm, normal sounds and absence of murmurs, rubs or gallops. Abdomen unremarkable and without evidence of organomegaly, masses, or abdominal aortic enlargement, bowel sounds are present in all 4 quadrants, no abdominal tenderness was noted. Extremities nonedematous, no cyanosis was noted, no clubbing was noted.? Neuro: Cranial nerves II through XII are grossly intact, no focal motor deficits were noted, sensation to light touch and pinprick is intact, motor exam 5/5 throughout.? Psych: Patient is alert and oriented x3, she does not appear anxious or depressed, she does not appear agitated. #1 acute on chronic hypoxic respiratory failure secondary to acute COPD exacerbation with overlying acute exacerbation of diastolic congestive heart failure-continue present treatment at this time, pulse ox will be monitored, patient is currently on 4 L of nasal cannula oxygen #2 acute on chronic anemia secondary to GI bleed from gastric ulcer-this is stable at this #3 bacteremia with Proteus mirabilis-patient is currently on IV Rocephin, podiatry is participating in her care, it is felt that the blood infection came from a left foot wound. I will repeat the patient's blood culture today. 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 #5 type 2 diabetes-continue to monitor blood sugars and cover with sliding scale insulin as needed #6 paroxysmal atrial fibrillation-cardiology is participating in her care, patient is on rate limiting medication at this time #7 hypothyroidism-patient is currently on Synthroid #8 coronary artery disease-continue present medications, cardiology is participating in her care #9 hyperlipidemia-patient is currently on atorvastatin #10 chronic obstructive pulmonary disease-patient is on aerosol treatments including budesonide, I have elected to stop her IV Solu-Medrol at this time. #11 acute debility-secondary to multiple medical problems, the plan is for the patient to go to a group home facility when she is stabilized. I have reviewed Laura Erick's progress note including her medical assessment and plan of care and with the above additions endorse it. Total clinical time spent by myself addressing the patient's medical issues, reviewing the data, and collaborating with patient's care team: 30 minutes Visit Charges Inpatient E&M: [id number] Subs Hosp L3
[2021-10-20 15:10] LABS: Bedside Glucose 290 mg/dL (74-106)
[2021-10-20] MEDS: NYSTATIN 500,000 UNIT/5 ML UDC 500000 UNIT PO ×3 (15:15→21:12)
--- NOTE | 2021-10-20 15:45 | CASEMGMT ---
Patient was approved for [facility] when she is medically ready. Plan: [facility] under skilled level of care. Clare DASILVA
[2021-10-20 17:30] LABS: Bedside Glucose 252 mg/dL (74-106)
--- NOTE | 2021-10-20 18:22 | PN_ITS ---
Subjective Subjective This is a 66-year-old female who is seen bedside today for follow-up of chronic ulcerations of the left foot and surgical discussion. She states that she underwent colonoscopy and endoscopy this morning and feels tired after the procedure. She still complains of pain to her left hallux. She denies any constitutional symptoms.? She has no further complaints today. Objective Data Objective Data Vital Signs: Vital Signs Temp Pulse Resp BP Pulse Ox O2 Del Method O2 Flow Rate 97.9 F 100 16 149/67 H 97 Nasal Cannula 4 10/20/21 18:09 10/20/21 18:09 10/20/21 18:09 10/20/21 18:09 10/20/21 18:09 10/20/21 18:09 10/20/21 18:09 FiO2 50 10/16/21 07:45 Oxygen Flow Rate (L/min) 4 Oxygen Delivery Method Nasal Cannula Weight: 109.4 kg Body Mass Index (BMI) 39.1 Intake & Output: Intake and Output for Last 24 Hours 10/18/21 10/19/21 10/20/21 23:59 23:59 23:59 Intake Total 1170.00 / 1170.00 330 / 1330 2206 / 2206 Output Total 1175 / 1175 500 / 500 375 / 375 Balance -5.00 / -5.00 -170 / 830 1831 / 1831 Lab / Micro Data Result Diagrams: 10/20/21 06:45 10/20/21 06:45 Labs: Laboratory Results - last 24 hr 10/19/21 21:51: POC Glucose 279 H 10/20/21 06:02: POC Glucose 230 H 10/20/21 06:45: WBC 12.5 H, RBC 3.57 L, Hgb 10.2 L, Hct 32.5 L, MCV 91.0, MCH 28.6, MCHC 31.4 L, RDW Std Deviation 50.1 H, RDW Coeff of Magen 15.0 H, Plt Count 147 L, MPV 10.8, Immature Gran % (Auto) 0.500, Neut % (Auto) 92.4 H, Lymph % (Auto) 3.5 L, [place] % (Auto) 3.5, Eos % (Auto) 0.0, Baso % (Auto) 0.1, Absolute Neuts (auto) 11.5 H, Absolute Lymphs (auto) 0.44 L, Nucleated RBC % 0, Differential Comment SCANNED 10/20/21 06:45: Sodium 142, Potassium 3.4 L, Chloride 108 H, Carbon Dioxide 28.0, Anion Gap 6, BUN 61 H, Creatinine 1.41 H, Estim Creat Clear Calc 35.79, Est GFR (MDRD) Af Amer 48 L, Est GFR (MDRD) Non-Af 40 L, BUN/Creatinine Ratio 43.3 H, Glucose 250 H, Calcium 9.4, Total Bilirubin 0.50, AST 25, ALT 40, Alkaline Phosphatase 115, Total Protein 6.7, Albumin 2.6 L, Globulin 4.1, Albumin/Globulin Ratio 0.6 L 10/20/21 06:45: PT 16.5 H, INR 1.4, APTT 24.1 10/20/21 06:45: Hemoglobin A1c 5.8 H 10/20/21 09:08: POC Glucose 210 H 10/20/21 11:57: POC Glucose 290 H 10/20/21 17:06: POC Glucose 252 H Micro: Microbiology 10/14/21 12:46 Blood Culture (Wb) - Anticubital Right Blood Culture - Final No growth in 5 days. 10/14/21 12:35 Blood Culture (Wb) - Anticubital Left Blood Culture - Final Proteus mirabilis 10/16/21 09:50 Nasal Secretion SARS-CoV-2 Antigen (Rapid) - Final 10/14/21 14:30 Wound - Toe Gram Stain - Final 10/14/21 14:30 Wound - Toe Wound Culture - Final Proteus mirabilis 10/15/21 06:17 Stool Stool Occult Blood (JARRETT) - Final Occult Blood Positive Physical Exam Const alert, oriented x3 and no apparent distress General Appearance: comfortable HEENT normocephalic Eyes General Eye: normal appearance of both eyes Neck General: normal visual inspection Lymph Lymphatic: no lymphadenopathy noted and lymphedema mild Lymphatic Narrative: Bilateral lower extremity Resp normal respiratory effort Resp Narrative: On oxygen Cardio regular rate and regular rhythm Extremity normal capillary refill, no joint enlargement and no calf tenderness Extremity Narrative: Right foot: DP and PT pulses weakly palpable. Capillary fill time less than 5 seconds to the digits. Webspaces are clean dry and intact. Skin is mildly xerotic, shiny, thin/atrophic. Mild nonpitting edema noted to the lower extremity with localized rubor to the anterior aspect of the tibia consistent with chronic venous insufficiency. There is also lymphedema noted. Left foot: DP and PT pulses weakly palpable. Cap fill time less than 5 seconds to the digit. Webspaces are clean dry and intact. There is diffuse nonpitting edema noted to the dorsal aspect of the foot, this is improving. There is erythema of the Left hallux extending proximally to the first metatarsal head dorsally which is decreasing. There is mild nonpitting edema noted to the lower extremity with localized rubor to the anterior aspect of the tibia consistent with chronic venous insufficiency. There is also lymphedema noted. Skin no rashes or lesions noted, skin turgor normal and no jaundice Wound Narrative: Left lower extremity: Left heel decubitus ulceration Clark stage II. Ulcerative site demonstrates slight localized erythema about the heel with no purulent drainage, no malodor, no palpable fluctuance, no bogginess, no visible abscess or other localized signs of infection. Ulcerative base demonstrates thickened yellow fibrotic tissue. Left hallux dorsomedial wound noted with ecchymosis/dry non-vaiable tissue about the dorsal and medial hallux extending to the IPJ. No purulent drainage expressible. No malodor noted. No palpable fluctuance, visible abscess, no bogginess noted to the hallux. There is also peeling skin noted about the hallux. Neuro oriented x3 and moves all extremities Assessment & Plan Assessment/Plan (1) Diabetes mellitus with diabetic polyneuropathy: (2) Decubitus ulcer of left heel, stage 2: (3) Decubitus ulcer of dorsum of foot, stage 2: (4) Cellulitis: (5) Chronic heel ulcer: (6) Diabetic foot ulcers: (7) Fall: (8) Fatigue: (9) Chronic respiratory failure with hypoxia, on home oxygen therapy: (10) Nondisplaced fracture of distal phalanx of right great toe, initial encounter for closed fracture: (11) Renal insufficiency: (12) CAD (coronary artery disease): (13) Atrial fibrillation: (14) Anemia: PLAN: Plan Patient seen and evaluated She reports continued pain to her left hallux 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 Left lower extremity Wounds: Left heel decubitus ulceration Clark stage II. Ulcerative site demonstrates slight localized erythema about the heel with no purulent drainage, no malodor, no palpable fluctuance, no bogginess, no visible abscess or other localized signs of infection. Ulcerative base demonstrates thickened yellow fibrotic tissue. Ulceration site measures 1.5 cm x 1.5 cm x 0. 1 cm. Left hallux dorsomedial wound noted with subdermal dry non-viable tissue/ecchymosis about the dorsal and medial hallux digit extending to the IPJ. This wound site measures 1.8 cm x 2 cm x 0.1 cm. No purulent drainage expressible from the dorsal medial aspect today. No malodor noted. No palpable fluctuance, visible abscess, no bogginess noted to the hallux. Erythema has decreased. There is also peeling skin noted about the hallux. She underwent bedside debridement of the left hallux on 10/14/2021. Site was again reexamined however there is still ecchymosis about the hallux today s econdary to her fracture of the distal phalanx, however continued deterioration of the tissue with dry/nonviable tissue noted at the dorsomedial hallux. Dressing: Betadine soaked Adaptic, 4 x 4 gauze, ABD to the heel, Kerlix, Kenny wrap lightly rolled onto the foot. Nursing to perform dressing changes daily. May reinforce for strikethrough. Apply Santyl to left heel daily with wet to dry gauze. Edema/offload: She is to elevate lower extremity at all times of rest with pillow under the lower leg to elevate the heel off the bed. She may be weightbearing to the foot with the assistance of a walker for bathroom privileges. Vascular: DP and PT pulses were weakly palpable, capillary fill time is less than 5 seconds to the digits. Vascular studies performed but incomplete secondary to patient not allowing full procedure to be performed. Examination performed did show biphasic flow of the PT and DP pulses on the right foot and biphasic flow of the PT pulse on the left foot with a diminished DP pulse on the left foot. She did demonstrate an elevated D-dimer of 0.81. Venous studies were negative for DVT of both legs. VQ scan negative for PE. Infection: Blood cultures obtained 10/14/2021 demonstrate Proteus Mirabilis. Wound cultures obtained 10/14/2021 demonstrate Proteus Mirabilis. Staff aureus protein A PCR was negative. MRSA PCR negative. Recent blood cultures were negative for growth. Her erythema about the hallux and first MPJ has decreased however she still demonstrates ecchymosis today secondary to her fracture of the distal phalanx, however there is dry/nonviable tissue and eschar about the dorsomedial hallux. WBC currently at 12.5. She is currently on IV ceftriaxone. Radiographs: Radiographic images of the left foot obtained 10/14/2021 demonstrate nondisplaced fracture of the distal phalanx of the hallux secondary to her fall earlier today. There is also nonspecific edema about the dorsal aspect of the foot. Pain: She may take hydrocodone-acetaminophen as needed for pain Host factors: DM type II with peripheral polyneuropathy, chronic venous insuffi ciency bilaterally, lymphedema bilaterally Medicine following for medical management, this is greatly appreciated I discussed with her that I feel her left hallux may not heal with the recent arterial studies performed and the deterioration of the overlying tissue. I discussed that this digit poses continued infection risk or risk of osteomyelitis due to nonhealing. I discussed that future infections may be worse in nature due to her diabetes and she could pose a risk of limb loss or loss of life. I discussed with her amputation of the left hallux as a salvage procedure to save the foot and prevent further deterioration and progressing infection. She is agreeable to this and feels it is a necessary procedure to save her foot. I discussed with her today the preoperative indications, planned procedure, benefits, risk, and anticipated healing time and management. The patient understands that this is a limb salvage procedure and elects proceed with surgery at this time. No guarantees were made. The patient understands risk and complications include but are not limited to following: pain, swelling, scarring, tendon contracture, transfer lesion, arthritis, need for further rojas rgery, delayed or nonhealing, infection, blood clot, allergic reaction, loss of limb, loss of function, or loss of life. I answered all the patient's questions. Patient will consented for a left hallux amputation to occur on 10/21/2021. She will remain n.p.o. after midnight. Following procedure she will remain partial weightbearing to the left heel in surgical offloading shoe. Nursing informs me today that following the procedure she will be transferred to the transitional care unit over the weekend. I will continue to follow after the procedure. Please do not hesitate to call for any questions or concerns Jr. Leny MorganPCathyM. [facility] [phone] Note: [employer] speech recognition aircraft engineer software was used to create portions of this document. Sound-alike and misspelled words, as well as other aircraft engineer errors may be contained in the documentation.
[2021-10-20] MEDS: Budesonide Respules 0.5 MG/2 ML AMPUL.NEB. INHALATION (19:29)
[2021-10-20] MEDS: LORazepam 1 MG Tablet PO (21:06)
[2021-10-20] MEDS: Menthol/Lanolin/Calamine/Znox 113 GM Tube 1 APPLIC TOPICAL (21:06)
[2021-10-20] MEDS: traZODone 100 MG Tablet PO (21:07)
[2021-10-20] MEDS: Insulin Glargine-YFGN 100 UNIT/ML Pen 37 UNIT SC (21:09)
[2021-10-20] MEDS: Paroxetine 20 MG Tablet 60 MG PO (21:11)
[2021-10-20] MEDS: Atorvastatin Calcium 80 MG Tablet PO (21:11)
[2021-10-20 22:10] LABS: Bedside Glucose 333 mg/dL (74-106)
[2021-10-20] MEDS: Metoprolol Tartrate 5 MG/5 ML Vial IV (23:08)
[2021-10-21] VITALS (16 sets, daily range): BP systolic 131–163; BP diastolic 69–84; PULSE 101–116; RESP 16–20; TEMP 36.3–38.1; O2SAT 96–100
[2021-10-21] MEDS: Gabapentin 100 MG Capsule PO ×3 (05:40→22:38)
[2021-10-21] MEDS: Levothyroxine 88 MCG Tablet PO (05:40)
[2021-10-21 07:15] LABS: Bedside Glucose 174 mg/dL (74-106)
[2021-10-21 07:31] LABS: Absolute Lymphocyte Count 0.95 X10^3/uL (0.83-4.51); Absolute Neutrophil Count 12.7 X10^3/uL (2.0-7.7); Basophil# 0.01 X10^3/uL; Basophil% 0.1 % (0-1); Eosinophil# 0.07 X10^3/uL; Eosinophils% 0.5 % (0-5); Lymphocyte # 0.95 X10^3/ul (0.83-4.51); Lymphocyte % 6.5 % (19-41); Mean Corp Hgb Conc 31.3 g/dL (32-36); Mean Corpuscular Volume 92.8 fL (81-99); Mean Platelet Vol. 11.6 fl (6.2-12.0); Monocyte# 0.92 X10^3/uL; Monocyte% 6.3 % (0-10); NRBC Flagged by Analyzer 0 % (0-5); Neutrophil # 12.66 X10^3/uL (2.7-7.7); Neutrophil % 85.9 % (47-70); POSITIVE COUNT YES; Platelet Count 87 K/mm3 (150-450); RBC Distribution Width CV 15.5 % (11.6-14.6); RBC Distribution Width SD 51.9 fl (35.1-43.9); Red Blood Count 3.45 M/mm3 (4.2-5.4); White Blood Count 14.7 K/mm3 (4.4-11.0)
[2021-10-21] MEDS: Budesonide Respules 0.5 MG/2 ML AMPUL.NEB. INHALATION ×2 (07:37→19:16)
[2021-10-21] MEDS: Ipratropium/Albuterol Sulfate 3 ML AMPUL.NEB INHALATION ×2 (07:37→19:16)
[2021-10-21 07:54] LABS: ALB/GLOB Ratio 0.6 RATIO (0.9-2.4); AST(SGOT) 20 U/L (15-37); Alanine Aminotransfer ALT/SGPT 35 U/L (13-56); Albumin, Serum 2.2 g/dL (3.2-5.0); Alkaline Phosphatase 102 U/L (45-117); Anion Gap 4 (5-15); BUN 56 mg/dL (7-18); BUN/Creat Ratio 45.5 RATIO (10-20); Calcium,Total 8.9 mg/dL (8.5-10.1); Chloride 112 mmol/L (98-107); Creatinine, Serum 1.23 mg/dL (0.55-1.02); EST Glomerular Filtration Rate 47 mL/min (>60); Est Glom Filt Rate - Afr Amer 56 mL/min (>60); Estimated Creatinine Clearance 41.03 ml/min; Globulin 3.7 g/dL (2.2-4.2); Glucose 163 mg/dL (74-106); Potassium 3.4 mmol/L (3.5-5.1); Protein, Total 5.9 g/dL (6.4-8.2); Sodium Level 143 mmol/L (136-145)
[2021-10-21 08:25] LABS: Differential Indicated SCAN CRITERIA MET
[2021-10-21] MEDS: Cholecalciferol (VIT D3) 25 MCG TABLET (1,000 UNITS) 50 MCG PO (08:30)
[2021-10-21] MEDS: Juven (unflavored) Packet 1 PACKET PO ×2 (08:30→17:03)
[2021-10-21] MEDS: amLODIPine 10 MG Tablet PO (08:31)
[2021-10-21] MEDS: Montelukast 10 MG Tablet PO (08:31)
[2021-10-21] MEDS: buPROPion (XL) 300 MG TABLET.XL PO (08:31)
[2021-10-21] MEDS: Pantoprazole Sodium 40 MG Tablet PO ×2 (08:31→22:27)
[2021-10-21] MEDS: Carvedilol 12.5 MG Tablet PO ×2 (08:32→22:25)
[2021-10-21] MEDS: Potassium Chloride Oral Tablet 20 MEQ 40 MEQ PO (08:32)
[2021-10-21] MEDS: Ensure Clear 120 ML Liquid PO ×4 (08:33→22:38)
[2021-10-21] MEDS: Fluticasone 0.05% 1 SPRAY NASAL.SRY NASAL (08:33)
[2021-10-21] MEDS: Furosemide 40 MG/4 ML Vial IV (08:35)
[2021-10-21] MEDS: 0.9% Saline Lock 10 ML Syringe IV ×2 (08:37→20:23)
[2021-10-21] MEDS: NYSTATIN 500,000 UNIT/5 ML UDC 500000 UNIT PO ×4 (08:46→22:27)
--- NOTE | 2021-10-21 08:49 | WOUNDNOTE ---
Pt going to surgery later today. will leave dressing in place to the left foot.
[2021-10-21 08:53] LABS: Platelet Estimate MOD DEC (ADEQ); Red Cell Morphology NORM C+C NORMAL (NORM C&C)
[2021-10-21] MEDS: Menthol/Lanolin/Calamine/Znox 113 GM Tube 1 APPLIC TOPICAL ×2 (09:30→22:25)
--- NOTE | 2021-10-21 10:46 | PCM.PN.HOSP ---
Documented by User: Laura Suarez NP, MACHINIST GENER[employer]-C 10/21/21 11:00 Subjective Subjective Patient seen and examined. Reports left foot pain. Denies fever/chills. Denies other symptoms or complaints. Plan for OR noon. Objective Data Objective Data Vital Signs: Vital Signs Temp Pulse Resp BP Pulse Ox O2 Del Method O2 Flow Rate 97.9 F 106 H 18 140/74 H 98 Room Air 4 10/21/21 08:19 10/21/21 08:19 10/21/21 08:19 10/21/21 08:19 10/21/21 08:19 10/21/21 08:48 10/21/21 08:48 FiO2 50 10/16/21 07:45 Oxygen Flow Rate (L/min) 4 Oxygen Delivery Method Room Air Weight: 241 lb 2.971 oz Body Mass Index (BMI) 39.1 Intake & Output: Intake and Output for Last 24 Hours 10/19/21 10/20/21 10/21/21 23:59 23:59 23:59 Intake Total 330 / 1330 2326 / 2326 0 / 0 Output Total 500 / 500 775 / 775 550 / 550 Balance -170 / 830 1551 / 1551 -550 / -550 Lab / Micro Data Result Diagrams: 10/21/21 07:15 10/21/21 07:15 Labs: Laboratory Results - last 24 hr 10/20/21 09:08: POC Glucose 210 H 10/20/21 11:57: POC Glucose 290 H 10/20/21 17:06: POC Glucose 252 H 10/20/21 21:02: POC Glucose 333 H 10/21/21 06:05: POC Glucose 174 H 10/21/21 07:15: WBC 14.7 H, RBC 3.45 L, Hgb 10.0 L, Hct 32.0 L, MCV 92.8, MCH 29.0, MCHC 31.3 L, RDW Std Deviation 51.9 H, RDW Coeff of Magen 15.5 H, Plt Count 87 L, MPV 11.6, Immature Gran % (Auto) 0.700, Neut % (Auto) 85.9 H, Lymph % (Auto) 6.5 L, [place] % (Auto) 6.3, Eos % (Auto) 0.5, Baso % (Auto) 0.1, Absolute Neuts (auto) 12.7 H, Absolute Lymphs (auto) 0.95, Nucleated RBC % 0, Platelet Estimate MOD DEC, RBC Morphology NORM C+C 10/21/21 07:15: Sodium 143, Potassium 3.4 L, Chloride 112 H, Carbon Dioxide 27.0, Anion Gap 4 L, BUN 56 H, Creatinine 1.23 H, Estim Creat Clear Calc 41.03, Est GFR (MDRD) Af Amer 56 L, Est GFR (MDRD) Non-Af 47 L, BUN/Creatinine Ratio 45.5 H, Glucose 163 H, Calcium 8.9, Total Bilirubin 0.50, AST 20, ALT 35, Alkaline Phosphatase 102, Total Protein 5.9 L, Albumin 2.2 L, Globulin 3.7, Albumin/Globulin Ratio 0.6 L Micro: Microbiology 10/14/21 12:46 Blood Culture (Wb) - Anticubital Right Blood Culture - Final No growth in 5 days. 10/14/21 12:35 Blood Culture (Wb) - Anticubital Left Blood Culture - Final Proteus mirabilis 10/16/21 09:50 Nasal Secretion SARS-CoV-2 Antigen (Rapid) - Final 10/14/21 14:30 Wound - Toe Gram Stain - Final 10/14/21 14:30 Wound - Toe Wound Culture - Final Proteus mirabilis 10/15/21 06:17 Stool Stool Occult Blood (JARRETT) - Final Occult Blood Positive Physical Exam Const alert, oriented x3 and no apparent distress Orientation / Consciousness: awake, oriented to person, oriented to place and oriented to time HEENT normocephalic Mouth: dry mucous membranes Eyes PERRL, EOMs intact bilaterally and conjunctivae normal Neck no lymphadenopathy Resp normal respiratory effort and clear to auscultation bilaterally Cardio no murmurs Cardio Narrative: a.fib, rate controlled. Peripheral Pulses: pulses 2+ throughout GI normal to inspection, nondistended, normoactive bowel sounds, non-tender and non-distended Extremity normal to inspection Skin no rashes or lesions noted Skin Narrative: Left foot dressing intact, left heel decubitus ulceration Clark stage II with surrounding erythema, left hallux wound Lesions: no lesions Rashes: no rashes Trauma: no lacerations or abrasions Neuro CN's II-XII intact bilaterally, no focal motor deficits, no sensory deficits noted and deep tendon reflexes 2+ bilaterally Psych mental status grossly normal and affect normal Assessment & Plan Assessment/Plan (1) Decubitus ulcer of dorsum of foot, stage 2: PLAN: Plan 1.? Acute on chronic hypoxic respiratory failure secondary to acute exacerbation of COPD and acute on chronic heart failure with preserved ejection fraction-now on baseline home O2 requirements.? Continue supplemental oxygen to maintain O2 sat above 90%. 2.? COPD exacerbation-DC IV Solu-Medrol, transition to prednisone.? Albuterol and DuoNeb aerosols. 3.? Acute on chronic heart failure with preserved ejection fraction-echocardiogram with EF 55%, moderate mitral valve insufficiency, moderate tricuspid valve insufficiency.? DC further IV Lasix.? Strict I&O.? Daily weight. 4.? Acute on chronic anemia secondary to GI bleed-GI consulted.? Colonoscopy without evidence of bleeding, poor prep.? EGD with esophageal plaques consistent with candidiasis, nonbleeding gastric ulcer which was biopsied.? Continue PPI.? Trend CBC. 5.? Proteus bacteremia secondary to left great toe neuropathic infected wound-podiatry following.? Wound RN consulted.? Plan for left hallux amputation 10/21/2021.? Continue IV Rocephin.? Continue dressing changes as ordered. Repeat blood culture pending. 6.? Suspected new onset atrial fibrillation-cardiology consulted.? Did not initiate anticoagulation secondary to GI bleed.? Continue rate control regimen. 7. Type 2 diabetes onkipojn-Ewkk-Ozhih with sliding scale insulin.? Continue home insulin regimen. 8. Hypothyroidism-continue Synthroid regimen. 9. CAD-continue medical management. 10. Hyperlipidemia-continue statin. 11. Depression/anxiety-on bupropion, Ativan, paroxetine. DVT prophylaxis-SCDs This patient was seen by DEVON Woodward under the supervision of Dr. Corbin. Time spent examining patient, reviewing data and subsequent management of care: 14 minutes Documented by User: Dr. Christophe Corbin, DO 10/21/21 16:28 Objective Data Lab / Micro Data Result Diagrams: 10/21/21 07:15 10/21/21 07:15 Assessment & Plan Assessment/Plan (1) Decubitus ulcer of dorsum of foot, stage 2: Charges/Coding Addendum Addendum: Patient was seen and examined today independently of Laura Suarez, she is going to go to surgery today for amputation of her left great toe. Patient appears medically stable at this time, I wrote for some supplemental potassium for her today due to a slightly low potassium this morning. On examination she appeared in good health and spirits, she does not appear to be in any distress. Vital signs as documented. Skin warm and dry and without overt rashes. Neck without JVD, thyroid appears normal, trachea is midline, neck is supple. Lungs clear, normal air movement was noted. Heart exam notable for regular rhythm, normal sounds and absence of murmurs, rubs or gallops. Abdomen unremarkable and without evidence of organomegaly, masses, or abdominal aortic enlargement, bowel sounds are present in all 4 quadrants, no abdominal tenderness was noted. Extremities there are gangrenous changes of her left great toe noted, there is the presence of an ulceration noted on the left heel approximately 1/2 to 1 cm diameter, no cyanosis was noted, no clubbing was noted. Neuro: Cranial nerves II through XII are grossly intact, no focal motor deficits were noted, sensation to light touch and pinprick is intact, motor exam 5/5 throughout. Psych: Patient is alert and oriented x3, she does not appear anxious or depressed, she does not appear agitated. 1 acute on chronic hypoxic respiratory failure secondary to acute COPD exacerbation with overlying acute exacerbation of diastolic congestive heart failure-continue present treatment at this time, pulse ox will be monitored, patient is currently on 4 L of nasal cannula oxygen #2 acute on chronic anemia secondary to GI bleed from gastric ulcer-this is stable at this #3 bacteremia with Proteus mirabilis-patient is currently on IV Rocephin, podiatry is participating in her care, it is felt that the blood infection came from a left foot wound.? I will repeat the patient's blood culture today. 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, continue care per wound care nurse and podiatry, it is planned that the patient will have an amputation of her left great toe today #5 type 2 diabetes-continue to monitor blood sugars and cover with sliding scale insulin as needed #6 paroxysmal atrial fibrillation-cardiology is participating in her care, patient is on rate limiting medication at this time #7 hypothyroidism-patient is currently on Synthroid #8 coronary artery disease-continue present medications, cardiology is participating in her care #9 hyperlipidemia-patient is currently on atorvastatin #10 chronic obstructive pulmonary disease-patient is on aerosol treatments including budesonide, I have elected to stop her IV Solu-Medrol at this time. #11 acute debility-secondary to multiple medical problems, the plan is for the patient to go to a [facility] facility when she is stabilized. I have reviewed Laura Suarez's progress note including her medical assessment and plan of care with the above additions endorse it. Total clinical time spent by myself addressing the patient's medical issues, reviewing the data, and collaborating with patient's care team: 30 minutes Visit Charges Inpatient E&M: 42455 Subs Hosp L3
[2021-10-21 12:00] LABS: Bedside Glucose 210 mg/dL (74-106)
[2021-10-21] MEDS: Ceftriaxone 1 GM/50 ML BAG IV (12:17)
[2021-10-21] MEDS: 0.9% Normal Saline 1,000 ML 15 ML IV (12:21)
[2021-10-21 12:45] LABS: Bedside Glucose 215 mg/dL (74-106)
--- NOTE | 2021-10-21 13:00 | RAD_ITS ---
STUDY: X-RAY - LEFT FOOT CLINICAL: Female, 66 years old. AMPUTATION TOE, HALLUX TECHNIQUE: 2 view(s) of the foot. 2 images. 8 seconds total exposure times. Total knee DAP dose of 0.8694 COMPARISON: Left Foot 10/14/2021 FINDINGS: 2 fluoroscopic spot films of the foot. One of these demonstrates an amputation at the first metatarsophalangeal joint. RAD/Foot 2 Views IMPRESSION: Amputation first metatarsal phalangeal joint. Please correlate with clinical service. Electronically Signed: Avinash Boone MD at 18:20 EDT ,
--- NOTE | 2021-10-21 13:00 | BON_PTH ---
PATIENT: SONA WILSON LOC: [facility] U#:[id number] AGE/SX: 66/F ROOM: [facility] RE10/14/[address]: Dr. Quynh Aldrich MD : [id number] BED: 1 DIS: 10/22/2021 SPEC #: [id number] RECD: 10/21/21 16:41 STATUS: ANNIKA REQ #: [id number] ACE: 10/21/21 13:[address]: Noah No DEPT: SURGICAL PATHOLOGY RECD BY: Fransisca Clark ENTERED: 10/24/21 08:15 SP TYPE: Bone OTHR DR: MD Dr. Augie Graham MD Dr. Michael Marshall, DHEERAJM DO Dr. Quynh Lyle MD Dr. Paul Moodispaw, MD Dr. Paul Nielsen, MD Tissues: Foot, NOS Procedures: Decalcification bone/plaque Surgery Specimen Level IV Comments: @ Ordering doctor for DEC edited from to DR.MMARS Bette SCHAFER at 10/27/21 Jose Antonio @ Ordering doctor for SUIV edited from to DR.MMARS Bette SCHAFER at 10/27/21 Jose Antonio @ Submitting doctor edited from to DR.MMARS Bette SCHAFER at 10/27/21 1157 HEADER OPERATION: Amputation toe, hallux PRE-OP DIAGNOSIS: Decubitus ulcer of dorsum of foot TISSUE SUBMITTED: Left hallux MICROSCOPIC DIAGNOSIS Left hallux, amputation. Skin and soft tissue with acute and chronic inflammation and ulceration. Bone with acute osteomyelitis. AM:maria de jesus 10/27/2021 MICROSCOPIC DESCRIPTION Slides are reviewed. GROSS DESCRIPTION Received in fixative is one container labeled with the patient's name and designated left hallux. The specimen consists of a portion of toe measuring 6 x 3 x 2.5 cm. The nail is present and appears to be unremarkable. Extensive area of ulceration is noted on the dorsal surface of toe measuring 2 cm in greatest dimension. The rest of the skin also shows brownish-black discoloration consistent with gangrenous necrosis. Analytical Manager sections are submitted after decalcification in two cassettes. / DARWIN:maria de jesus 10/24/2021 TC:2 CPT: 80166, 83775
[2021-10-21] MEDS: Bupivacaine 0.25% 30 ML Vial (13:40)
[2021-10-21] MEDS: Lidocaine 1% (20 ml mdv) 20 ML Vial (13:40)
--- NOTE | 2021-10-21 14:36 | PCM.OPRPT ---
Problems Associated Problem List Diagnoses (1) Nondisplaced fracture of distal phalanx of right great toe, initial encounter for closed fracture: (2) Gangrenous toe: (3) Dry gangrene: (4) Decubitus ulcer of dorsum of foot, stage 2: Report of Operation Date of Procedure: 10/21/21 Pre-Operative Diagnosis: 1. Dry gangrene left hallux 2. Nonhealing chronic ulceration left dorsomedial hallux 3. Nondisplaced transverse fracture distal phalanx left hallux Post-Operative Diagnosis: Same Surgery/Procedure Performed:: Left hallux amputation Description of Surgical Findings:: See operative report for findings Surgeon: Noah No middle school librarian: Dr. Matias Fletcher DPM PGY-2 Type of Anesthesia: Local (10 cc 1:1 mixture 1% lidocaine plain and 0.5% Marcaine plain) and MAC Specimen's removed: Tissue left hallux and bone left hallux to pathology, left hallux permanent Drains: None Estimated Blood Loss (mL): 10 mL Description of Procedure: HPI/indication: This is a 66-year-old female who is a resident of assisted living facility admitted to [facility] on 10/14/2021 for acute on chronic foot ulcer of the left foot. She suffered a fall from her couch on 10/14/2021 resulting in a nondisplaced distal phalanx fracture of the left hallux confirmed on radiograph. She states the pain in her toe along with swelling, burning, and draining caused her nurse to recommend that she come to the ED for treatment. She states she had been following in the wound care center with another provider for her chronic wounds of 3 months duration without improvement. She has a left posterior heel decubitus ulceration and a left dorsal medial hallux ulceration with eschar and fissure overlying the interphalangeal joint. She admits to being a diabetic with new onset peripheral polyneuropathy with burning and paresthesias. Her hemoglobin A1c was 8% but has decreased to 5.8% currently. LEAS was ordered and reviewed demonstrating biphasic flow of the PT and DP arteries of the right foot and biphasic flow of the PT artery of the left foot. Her DP artery had diminished flow but audible on Doppler with decreased flow to the digits of the left foot. After discussion patient wanted a debridement to salvage her digit. Bedside debridement was performed and the patient demonstrated improvement on IV antibiotics. Over the last few days patient produced stool sample with positive for occult blood and acute hypoxic respiratory failure leading to acute COPD exacerbation/acute exacerbation of heart failure with preserved EF. She underwent endoscopy and colonoscopy to evaluate for potential GI bleed once stable for procedure. During this time patient's left hallux deteriorated with nonviable dry gangrenous tissue overlying the dorsomedial aspect of the interphalangeal joint. Due to her deterioration and increased risk of infection/osteomyelitis a discussion was had with her pertaining to limb salvage procedure. Patient is in agreement and elects to proceed with amputation of the left hallux. The procedure, the risks, benefits, complications, postoperative course and management was discussed with the patient but not limited to infection, pain, continued pain, dehiscence, delayed healing, nonhealing, deformity, continued deformity, swelling, poor cosmetic result, bleeding, neuritis of the surrounding nerves, blood clot, need for further surgery/procedures, allergic reaction, stroke, heart attack, addiction to pain medication, complex regional pain syndrome, weakness, shoe gear problems, loss of function, loss of limb, and loss of life. Patient was able to repeat these back. Surgical consent was obtained and signed freely by the patient. No promises or guarantees were made. She was scheduled to undergo a left hallux amputation at [facility] on 10/21/2021. Procedure: Under mild sedation patient was brought into the operating room and placed on the table in the supine position. Following IV sedation a pneumatic ankle tourniquet was placed about the patient's left ankle, but not inflated. Local anesthetic block was performed about the first metatarsal consisting of 10 cc of one-to-one mixture of 1% lidocaine plain and 0.5% Marcaine plain. The foot was then scrubbed, prepped, and draped in the usual aseptic manner. At this time attention was directed to the first digit of the left foot where an ulceration of the dorsomedial hallux overlying the proximal phalanx and hallucal interphalangeal joint was noted. The ulceration measured 1.8 cm x 2 cm and probes to bone at the dorsomedial aspect with the prominent proximal phalanx exposed secondary to dry gangrenous tissue. A fishmouth shaped incision was performed about the left hallux. Dissection was carried down to bone via sharp dissection. Upon sharp dissection no purulence was noted deep within the soft tissue or about the interphalangeal joint or proximal phalanx bone. Left hallux was then sharply disarticulated at the metatarsophalangeal joint. Left Hallux was sectioned for tissue and bone, specimens to be sent to micro and pathology for analysis. The surrounding soft tissues demonstrated no necrotic tissue and was healthy in appearance with adequate bleeding. The head of the first metatarsal was examined which the bone felt hard and had intact, shiny healthy glistening cartilage. The site was then flushed with copious amounts of normal sterile saline. Next the extensor tendon and flexor tendon was identified and transected as far proximal as possible. The site was again flushed with copious amounts of normal sterile saline. At this time the site is again examined for any bleeders, which none were identified. The soft tissue flap was then remodeled for adequate soft tissue closure of the amputation site. The subcutaneous tissue was closed with a 4-0 Vicryl and the skin reapproximated with a 3-0 Prolene. A postoperative block was performed about the left ankle consisting of 20 cc of a one-to-one mixture of 1% lidocaine plain and 0.5% Marcaine plain to provide for postoperative pain control. The incision site was then dressed with Betadine soaked Adaptic, 4 x 4 gauze, ABD, Kerlix, and an Kenny wrap with mild compression to the site. The patient tolerated the anesthesia and procedure well and was transferred to PACU with vital signs stable and vascular status intact of the left foot. She will return to the floor once anesthesia protocol has been met. Postoperative radiographs were obtained and reviewed prior to leaving the OR. She will resume her cardiac diet and remain partial weightbearing to the left heel in a surgical offloading shoe for bathroom privileges. She is instructed to elevate the left lower extremity at all times of rest. I will continue to follow the patient while in-house for postoperative care. Grafts/Implants Used: None Complications None Admit VTE Documentation VTE Present on Admission: No VTE Mechan Device Prophylaxis: SCD's VTE Pharm Prophylaxis ordered?: No Reason prophylaxis not ordered:: Procedure Not Indicated
--- NOTE | 2021-10-21 14:37 | RAD_ITS ---
STUDY: X-RAY - LEFT FOOT CLINICAL: Female, 66 years old. Post-op TECHNIQUE: 3 view(s) of the foot. COMPARISON: 1:15 PM today FINDINGS: Normal, calcaneus, and tarsal bones. Moderate posterior calcaneal heel spur. 2 ossific densities medial aspect of the talus and navicular bone. Normal visualized subtalar, talonavicular, calcaneocuboid, tarsal and tarsometatarsal articulations. Normal metatarsi. Status post amputation first metatarsal phalangeal joint. Diffuse demineralization decreases sensitivity. Normal tibial and fibular sesamoid bones. Normal interphalangeal joint of the great toe. Normal phalanges of the great toe. Normal second through fifth metatarsophalangeal joints. Normal interphalangeal joints and phalanges of the lesser toes. The soft tissue structures are unremarkable. RAD/Foot min 3 Views IMPRESSION: Status post amputation first metatarsal phalangeal joint. Accessory ossicles versus fracture fragments medial aspect talus. Electronically Signed: Avinash Boone MD at 18:28 EDT ,
[2021-10-21] MEDS: Insulin Lispro 100 UNIT/ML INSULN.PEN SC ×2 (16:52→22:31)
[2021-10-21] MEDS: Insulin Lispro 100 UNIT/ML INSULN.PEN 10 UNIT SC ×2 (16:54→22:30)
--- NOTE | 2021-10-21 17:18 | PCM.PROGNOTE ---
Subjective Subjective Patient underwent an upper and lower endoscopy yesterday. She is doing well and eating without any problems. Her breathing is about the same. She is not requiring any more oxygen than she did yesterday. Objective Data Objective Data Vital Signs: Vital Signs Temp Pulse Resp BP Pulse Ox O2 Del Method O2 Flow Rate 98.1 F 103 H 16 163/80 H 99 Nasal Cannula 4 10/21/21 15:14 10/21/21 15:14 10/21/21 15:14 10/21/21 15:14 10/21/21 15:14 10/21/21 15:14 10/21/21 15:14 FiO2 50 10/16/21 07:45 Oxygen Flow Rate (L/min) 4 Oxygen Delivery Method Nasal Cannula Weight: 241 lb 2.971 oz Body Mass Index (BMI) 39.1 Intake & Output: Intake and Output for Last 24 Hours 10/19/21 10/20/21 10/21/21 23:59 23:59 23:59 Intake Total 330 / 1330 2326 / 2326 50 / 50 Output Total 500 / 500 775 / 775 550 / 550 Balance -170 / 830 1551 / 1551 -500 / -500 Lab / Micro Data Result Diagrams: 10/21/21 07:15 10/21/21 07:15 Labs: Laboratory Results - last 24 hr 10/20/21 17:06: POC Glucose 252 H 10/20/21 21:02: POC Glucose 333 H 10/21/21 06:05: POC Glucose 174 H 10/21/21 07:15: WBC 14.7 H, RBC 3.45 L, Hgb 10.0 L, Hct 32.0 L, MCV 92.8, MCH 29.0, MCHC 31.3 L, RDW Std Deviation 51.9 H, RDW Coeff of Magen 15.5 H, Plt Count 87 L, MPV 11.6, Immature Gran % (Auto) 0.700, Neut % (Auto) 85.9 H, Lymph % (Auto) 6.5 L, [place] % (Auto) 6.3, Eos % (Auto) 0.5, Baso % (Auto) 0.1, Absolute Neuts (auto) 12.7 H, Absolute Lymphs (auto) 0.95, Nucleated RBC % 0, Platelet Estimate MOD DEC, RBC Morphology NORM C+C 10/21/21 07:15: Sodium 143, Potassium 3.4 L, Chloride 112 H, Carbon Dioxide 27.0, Anion Gap 4 L, BUN 56 H, Creatinine 1.23 H, Estim Creat Clear Calc 41.03, Est GFR (MDRD) Af Amer 56 L, Est GFR (MDRD) Non-Af 47 L, BUN/Creatinine Ratio 45.5 H, Glucose 163 H, Calcium 8.9, Total Bilirubin 0.50, AST 20, ALT 35, Alkaline Phosphatase 102, Total Protein 5.9 L, Albumin 2.2 L, Globulin 3.7, Albumin/Globulin Ratio 0.6 L 10/21/21 11:02: POC Glucose 210 H 10/21/21 12:06: POC Glucose 215 H Micro: Microbiology 10/14/21 12:46 Blood Culture (Wb) - Anticubital Right Blood Culture - Final No growth in 5 days. 10/14/21 12:35 Blood Culture (Wb) - Anticubital Left Blood Culture - Final Proteus mirabilis 10/16/21 09:50 Nasal Secretion SARS-CoV-2 Antigen (Rapid) - Final 10/14/21 14:30 Wound - Toe Gram Stain - Final 10/14/21 14:30 Wound - Toe Wound Culture - Final Proteus mirabilis 10/15/21 06:17 Stool Stool Occult Blood (JARRETT) - Final Occult Blood Positive Physical Exam Const alert, oriented x3 and no apparent distress Orientation / Consciousness: awake, oriented to person, oriented to place and oriented to time HEENT normocephalic Mouth: dry mucous membranes Eyes PERRL, EOMs intact bilaterally and conjunctivae normal Neck no lymphadenopathy Resp normal respiratory effort and clear to auscultation bilaterally Cardio no murmurs Cardio Narrative: a.fib, rate controlled. Peripheral Pulses: pulses 2+ throughout GI normal to inspection, nondistended, normoactive bowel sounds, non-tender and non-distended Extremity normal to inspection Skin no rashes or lesions noted Skin Narrative: Left foot dressing intact, left heel decubitus ulceration Clark stage II with surrounding erythema, left hallux wound Lesions: no lesions Rashes: no rashes Trauma: no lacerations or abrasions Neuro CN's II-XII intact bilaterally, no focal motor deficits, no sensory deficits noted and deep tendon reflexes 2+ bilaterally Psych mental status grossly normal and affect normal Assessment & Plan Assessment/Plan (1) Anemia: PLAN: Anemia thought to be secondary to bleeding gastric ulcer that was seen in the gastric antrum. Biopsies were taken and H. pylori status is pending of ulcer. Recommend PPI therapy twice a day. There was no bleeding seen in her colon. She did have significant diverticular disease and a poor prep. 2 polyps were removed. The pathology from the polyps is pending. Charges/Coding Visit Charges Inpatient E&M: 14532 Subs Hosp L2
[2021-10-21 17:25] LABS: Bedside Glucose 208 mg/dL (74-106)
[2021-10-21] MEDS: Nystatin Powder 15gm Bottle 1 APPLIC TOPICAL (18:00)
[2021-10-21] MEDS: HYDROcodone Bitartrate/Apap 5/325 Tablet PO (18:38)
--- NOTE | 2021-10-21 19:47 | NURSING ---
Pt C/O L foot pain - 12/05. States [place] ineffective. Text to Dr Rodriguez.
[2021-10-21] MEDS: Morphine 2 MG/ML Syringe IV (20:23)
[2021-10-21] MEDS: LORazepam 1 MG Tablet PO (22:24)
[2021-10-21] MEDS: Atorvastatin Calcium 80 MG Tablet PO (22:26)
[2021-10-21] MEDS: traZODone 100 MG Tablet PO (22:26)
[2021-10-21] MEDS: Paroxetine 20 MG Tablet 60 MG PO (22:27)
[2021-10-21] MEDS: Insulin Glargine-YFGN 100 UNIT/ML Pen 37 UNIT SC (22:31)
[2021-10-21 22:55] LABS: Bedside Glucose 311 mg/dL (74-106)
[2021-10-22] VITALS (8 sets, daily range): BP systolic 151–152; BP diastolic 60–84; PULSE 94–109; RESP 16–18; TEMP 36.4–36.8; O2SAT 85–100
[2021-10-22] MEDS: Carvedilol 12.5 MG Tablet PO (00:32)
[2021-10-22] MEDS: oxyCODONE 5 MG Tablet PO ×4 (00:34→15:20)
[2021-10-22] MEDS: Insulin Lispro 100 UNIT/ML INSULN.PEN SC ×2 (06:40→11:12)
[2021-10-22] MEDS: Levothyroxine 88 MCG Tablet PO (06:40)
[2021-10-22] MEDS: Nystatin Powder 15gm Bottle 1 APPLIC TOPICAL ×3 (06:41→14:29)
[2021-10-22] MEDS: Gabapentin 100 MG Capsule PO ×2 (06:44→14:29)
[2021-10-22 07:19] LABS: Absolute Lymphocyte Count 0.78 X10^3/uL (0.83-4.51); Absolute Neutrophil Count 11.2 X10^3/uL (2.0-7.7); Basophil# 0.01 X10^3/uL; Basophil% 0.1 % (0-1); Eosinophil# 0.13 X10^3/uL; Hematocrit 31.3 % (37-47); Hemoglobin 10.1 g/dL (12.0-15.0); Lymphocyte # 0.78 X10^3/ul (0.83-4.51); Lymphocyte % 6.1 % (19-41); Mean Corp Hgb Conc 32.3 g/dL (32-36); Mean Corpuscular Hgb 30.3 pg (27.0-32.0); Mean Platelet Vol. 11.5 fl (6.2-12.0); Monocyte# 0.67 X10^3/uL; Monocyte% 5.2 % (0-10); NRBC Flagged by Analyzer 0 % (0-5); Neutrophil # 11.18 X10^3/uL (2.7-7.7); Neutrophil % 87.1 % (47-70); Platelet Count 130 K/mm3 (150-450); RBC Distribution Width CV 15.2 % (11.6-14.6); RBC Distribution Width SD 52.5 fl (35.1-43.9); Red Blood Count 3.33 M/mm3 (4.2-5.4); White Blood Count 12.8 K/mm3 (4.4-11.0)
[2021-10-22] MEDS: Ipratropium/Albuterol Sulfate 3 ML AMPUL.NEB INHALATION ×2 (07:23→13:23)
[2021-10-22] MEDS: Budesonide Respules 0.5 MG/2 ML AMPUL.NEB. INHALATION (07:23)
[2021-10-22 07:31] LABS: Bedside Glucose 187 mg/dL (74-106)
[2021-10-22 07:51] LABS: Anion Gap 6 (5-15); BUN 47 mg/dL (7-18); BUN/Creat Ratio 40.2 RATIO (10-20); Calcium,Total 8.7 mg/dL (8.5-10.1); Chloride 109 mmol/L (98-107); Creatinine, Serum 1.17 mg/dL (0.55-1.02); EST Glomerular Filtration Rate 49 mL/min (>60); Est Glom Filt Rate - Afr Amer 60 mL/min (>60); Estimated Creatinine Clearance 43.14 ml/min; Glucose 211 mg/dL (74-106); Potassium 3.9 mmol/L (3.5-5.1); Sodium Level 143 mmol/L (136-145)
[2021-10-22] MEDS: Insulin Lispro 100 UNIT/ML INSULN.PEN 10 UNIT SC ×2 (08:48→11:13)
[2021-10-22] MEDS: predniSONE 20 MG Tablet 40 MG PO (08:49)
[2021-10-22] MEDS: Juven (unflavored) Packet 1 PACKET PO (08:49)
[2021-10-22] MEDS: Menthol/Lanolin/Calamine/Znox 113 GM Tube 1 APPLIC TOPICAL (08:50)
[2021-10-22] MEDS: Fluticasone 0.05% 1 SPRAY NASAL.SRY NASAL (08:51)
[2021-10-22] MEDS: Furosemide 80 MG Tablet PO (08:52)
[2021-10-22] MEDS: amLODIPine 10 MG Tablet PO (08:53)
[2021-10-22] MEDS: NYSTATIN 500,000 UNIT/5 ML UDC 500000 UNIT PO ×2 (08:58→14:44)
[2021-10-22] MEDS: Pantoprazole Sodium 40 MG Tablet PO (08:58)
[2021-10-22] MEDS: Carvedilol 25 MG Tablet PO (08:59)
[2021-10-22] MEDS: Montelukast 10 MG Tablet PO (09:00)
[2021-10-22] MEDS: buPROPion (XL) 300 MG TABLET.XL PO (09:00)
[2021-10-22] MEDS: Cholecalciferol (VIT D3) 25 MCG TABLET (1,000 UNITS) 50 MCG PO (09:00)
[2021-10-22] MEDS: Ceftriaxone 1 GM/50 ML BAG IV (11:07)
[2021-10-22 12:31] LABS: Bedside Glucose 197 mg/dL (74-106)
--- NOTE | 2021-10-22 13:07 | TREXTCAR_ITS ---
Diet Diet Order/Speech Therapy: 10/21/21 16:14 Diet: Cardiac - Heart Healthy Is pt able to select menu?: Yes Diet Comments: no reds Routine Orders/Code Status Enema Type: Fleetz Enema Frequency: Daily PRN Suppository Type: Dulcolax 10mg Suppository Frequency: Daily PRN O2 Liters per Minute: 3 O2 Frequency: Continuous Keep PO Greater than or Equal to (%): 90 Routine Lab Work: - (Weekly CBC, BMP) Code Status: DNRCC-A (no intubation) Wound(s) left great toe: Wound Type: Surgical Incision Dressing Change: betadine with dry dressing left heel: Wound Type: Surgical Incision Dressing Change: betadine with well padded dressing Suggestions for Active Care Change Position every (hours): 2 Times a day to sit in chair: 3 Therapies Weight Bearing: Partial weight bearing (Partial weightbearing to left heel in a surgical offloading shoe for bathroom privileges) Physical Therapy: Eval and Treat Occupational Therapy: Eval and Treat Problem/Diagnosis (1) Nondisplaced fracture of distal phalanx of right great toe, initial encounter for closed fracture: Status: Acute Code(s): S92.424A - Nondisplaced fracture of distal phalanx of right great toe, initial encounter for closed fracture (2) Gangrenous toe: Status: Acute Code(s): I96 - Gangrene, not elsewhere classified (3) Dry gangrene: Status: Acute Code(s): I96 - Gangrene, not elsewhere classified (4) Decubitus ulcer of dorsum of foot, stage 2: Status: Acute Code(s): L89.892 - Pressure ulcer of other site, stage 2 Allergies/Procedures Done in Hospital Allergies Sulfa (Sulfonamide Antibiotics) Allergy (Verified 10/14/21 10:12) Anaphylaxis sulfur dioxide Allergy (Verified 10/14/21 10:12) Anaphylaxis Procedures: 2-D Echocardiogram, Colonoscopy, EGD and - (Left hallux amputation) Type of Care/Length of Stay Estimated LOS: Convalescent Care Less Than 30 days Type of Care Needed: Skilled Rehab Potential: Fair Prognosis: Fair Additional Orders/Day of Discharge H&P will serve as current which was dated: 10/14/21 Day of Discharge: 10/22/21 Dietary and Speech Recommendations Dietitian Recommendations/Changes: Suggest liberalizing fluid restriction in view of extended clear liquid diet order for pending endoscopy. Recommend advance diet as medically able to Transitional with goal diet of 2000 calorie/consistent carbohydrate; cardiac/sodium-restricted; 1500ml/day fluid restriction. Will continue Say BID for wound healing. Will add 120 ml ensure clear 4 times per day w/ medpass only while on extended clear liquid diet; d/c ensure clear once diet advanced. Discharge Plan Admission Admit Date/Time: 10/14/21 12:31 Primary Reason for Your Visit: COPD, CHF, anemia, left great toe infected wound Attending Provider: Quynh Aldrich Primary Care Provider: Froy Gonzales Consulting Providers: Noah No ; Brenna Wilcox ; Froy Gutierres ; Augie Roberts ; Christophe Corbin Instructions Additional Instructions / Restrictions: Elevate left lower extremity at all times of breast. Podiatry to follow for postoperative care. Discharge Orders/Prescriptions Prescriptions: New nystatin 100,000 unit/mL Suspension 500,000 unit PO 4X/DAY 5 Days Qty: 100 0RF prednisone 20 mg Tablet 40 mg PO BREAKFAST 4 Days Qty: 8 0RF pantoprazole 40 mg Tablet,Delayed Release (Dr/Ec) 40 mg PO BID Qty: 0 0RF cephalexin 500 mg Capsule 500 mg PO Q8 2 Days Qty: 6 0RF Continued aspirin [Adult Aspirin Regimen] 81 mg tablet,delayed release (DR/EC) 81 mg PO DAILY Trulicity 0.75 mg/0.5 mL pen injector 0.75 mg subcut QWEEK Label Comments: 0.5 ML (0.75MG) SQ EVERYMWEEK DX:X Rx Instructions: pt takes on mondays levothyroxine 88 mcg Tablet 88 mcg PO DAILY furosemide 80 mg Tablet 80 mg PO DAILY trazodone 100 mg Tablet 100 mg PO QHS montelukast 10 mg Tablet 10 mg PO DAILY lorazepam 1 mg Tablet 1 mg PO QHS fluticasone propionate 50 mcg/actuation [place],Suspension 1 spray INTRANASAL DAILY PRN (Reason: allergies) bupropion HCl 300 mg Tablet Extended Release 24 Hr 300 mg PO QHS cholecalciferol (vitamin D3) [Vitamin D3] 50 mcg (2,000 unit) Capsule 50 mcg PO DAILY fluticasone furoate-vilanterol [Breo Ellipta] 100-25 mcg/dose Blister With Device 1 inh INHALATION DAILY ipratropium-albuterol 0.5 mg-3 mg(2.5 mg base)/3 mL solution for nebulization 3 ml INHALATION BID PRN (Reason: sob) insulin lispro 100 unit/mL insulin pen See Protocol SUBCUT QACHS Protocol: 6. Sliding Scale Insulin Custom Condition: 151-175 Dose/Route: 5 Condition: 176-200 Dose/Route: 7 Condition: 201-250 Dose/Route: 9 Condition: 251-300 Dose/Route: 11 Condition: 301-350 Dose/Route: 13 Condition: 351-400 Dose/Route: 15 Condition: 401-450 Dose/Route: 19 Protocol Text: Custom Sliding Scale Rx Instructions: 10 units plus sliding scale. SEE SLIDING SCALE paroxetine HCl 30 mg tablet 60 mg PO QHS insulin detemir U-100 100 unit/mL (3 mL) insulin pen 37 unit SUBCUT QHS amlodipine 10 mg Tablet 10 mg PO DAILY gabapentin [Neurontin] 100 mg Capsule 100 mg PO TID hydrocodone-acetaminophen 5-325 mg tablet 1 tab PO Q6H PRN (Reason: pain) 3 Days Qty: 12 0RF carvedilol 6.25 mg tablet 6.25 mg PO BID Qty: 60 11RF atorvastatin 80 mg tablet 80 mg PO QHS Qty: 30 11RF Discontinued meloxicam 7.5 mg tablet 7.5 mg PO DAILY cephalexin 500 mg capsule 500 mg PO Q6 Qty: 40 0RF clindamycin HCl 150 mg capsule 300 mg PO 4X/DAY Qty: 56 0RF Referrals / Follow Up: Noah No DPM [Med Staff - Active Staff] - See Referral Note (Podiatry to follow at [facility]) Froy Gonzales MD [Primary Care Provider] - In 1 Week Torrey Mccrary DO [Med Staff - Active Staff] - Within 2 Weeks Disposition Disposition (needs filled in before D/C Order can be placed): [facility]
--- NOTE | 2021-10-22 13:35 | NURSING ---
I found PT's ins cards in her chart, I gave PT's ins cards to RN and asked her to give them to the PT.
--- NOTE | 2021-10-22 13:36 | NURSING ---
insurance cards that were in chart returned to patient and placed in her purse.
--- NOTE | 2021-10-22 13:39 | PCM.DC.SUM ---
Documented by User: Laura Suarez NP, DIRECTOR OF CONVENTION SERVICES-C 10/22/21 13:44 Providers Date of Admission: 10/14/21 Date of Discharge: 10/22/21 Primary Care Physician: Dr. Froy Gonzales MD Consultations 10/14/21 13:57 Consult: Podiatry Routine Consulting Provider: Noah No Reason for Consult: Acute on chronic left ulcers, fracture of proximal phalanx EMERGENT Consult: No MD Notified: Yes Date Notified: 10/14/21 Time Notified: 12:38 Method of Notification: spoke on phone 10/15/21 07:44 Consult: Gastroenterology Routine Consulting Provider: [facility] Reason for Consult: GI bleed EMERGENT Consult: No Notified: Yes Date Notified: 10/15/21 Time Notified: 08:08 Method of Notification: backline 10/18/21 10:04 Consult: Cardiology Routine Consulting Provider: Froy Gutierres Reason for Consult: Afib with RVR EMERGENT Consult: No Notified: Yes Date Notified: 10/18/21 Time Notified: 10:04 Method of Notification: Text 10/18/21 14:20 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 Comment: Reason For Visit: ACUTE ON CHRONIC FOOT ULCERS Diagnosis Discharge Diagnosis (1) Nondisplaced fracture of distal phalanx of right great toe, initial encounter for closed fracture: Status: Acute Code(s): S92.424A - Nondisplaced fracture of distal phalanx of right great toe, initial encounter for closed fracture (2) Gangrenous toe: Status: Acute Code(s): I96 - Gangrene, not elsewhere classified (3) Dry gangrene: Status: Acute Code(s): I96 - Gangrene, not elsewhere classified (4) Decubitus ulcer of dorsum of foot, stage 2: Status: Acute Code(s): L89.892 - Pressure ulcer of other site, stage 2 Medications at Discharge Home Medications bupropion HCl 300 mg 24 hr tablet, extended release 300 mg PO QHS depression 09/02/20 cholecalciferol (vitamin D3) 50 mcg (2,000 unit) capsule (Vitamin D3) 50 mcg PO DAILY supplement 09/02/20 fluticasone furoate 100 mcg-vilanterol 25 mcg/dose inhalation powder (Breo Ellipta) 1 inh inhalation DAILY breathing 09/02/20 fluticasone propionate 50 mcg/actuation nasal spray,suspension 1 spray intranasal DAILY PRN allergies 09/02/20 furosemide 80 mg tablet 80 mg PO DAILY water pill 09/02/20 levothyroxine 88 mcg tablet 88 mcg PO DAILY thyroid 09/02/20 lorazepam 1 mg tablet 1 mg PO QHS anxiety 09/02/20 montelukast 10 mg tablet 10 mg PO DAILY allergies 09/02/20 trazodone 100 mg tablet 100 mg PO QHS sleep 09/02/20 carvedilol 6.25 mg tablet 6.25 mg PO BID #60 tabs 01/06/21 atorvastatin 80 mg tablet 80 mg PO QHS #30 tabs 04/08/21 aspirin 81 mg tablet,delayed release (Adult Aspirin Regimen) 81 mg PO DAILY heart 05/17/21 amlodipine 10 mg tablet 10 mg PO DAILY bp 08/25/21 gabapentin 100 mg capsule (Neurontin) 100 mg PO TID nerve pain 08/25/21 dulaglutide 0.75 mg/0.5 mL subcutaneous pen injector (Trulicity) 0.75 mg subcut QWEEK dm 09/02/21 insulin detemir U-100 100 unit/mL (3 mL) subcutaneous pen 37 unit subcut QHS blood sugar 09/02/21 insulin lispro 100 unit/mL subcutaneous pen See Protocol subcut QACHS blood sugar 09/02/21 ipratropium 0.5 mg-albuterol 3 mg (2.5 mg base)/3 mL nebulization soln 3 ml inhalation BID PRN sob 09/02/21 paroxetine HCl 30 mg tablet 60 mg PO QHS mental health 09/02/21 hydrocodone-acetaminophen 5-325mg 5mg-325mg 1 tab PO Q6H PRN pain 3 days #12 tabs 10/02/21 cephalexin 500 mg capsule 500 mg PO Q8 2 days #6 caps 10/22/21 nystatin 100,000 unit/mL oral suspension 500,000 unit (5 mL) PO 4X/DAY 5 days #100 mL 10/22/21 pantoprazole 40 mg tablet,delayed release 40 mg PO BID #0 tabs 10/22/21 prednisone 20 mg tablet 40 mg PO BREAKFAST 4 days #8 tabs 10/22/21 Hospital Course Operations - (Left hallux amputation) Procedures 2-D Echocardiogram, Colonoscopy and EGD Summary of Care Provided Hospital Course: Patient is a 66-year-old female admitted 10/14/2021 due to left foot chronic wound. 1.? Acute on chronic hypoxic respiratory failure secondary to acute exacerbation of COPD and acute on chronic heart failure with preserved ejection fraction-now on baseline home O2 requirements.? Continue supplemental oxygen to maintain O2 sat above 90%. 2.? COPD exacerbation-DC IV Solu-Medrol, transition to prednisone burst.? Continue home inhaler regimen. 3.? Acute on chronic heart failure with preserved ejection fraction-echocardiogram with EF 55%, moderate mitral valve insufficiency, moderate tricuspid valve insufficiency.? DC further IV Lasix.? Strict I&O.? Daily weight. Continue home Lasix regimen. 4.? Acute on chronic anemia secondary to GI bleed-GI consulted.? Colonoscopy without evidence of bleeding, poor prep.? EGD with esophageal plaques consistent with candidiasis, nonbleeding gastric ulcer which was biopsied.? Continue PPI.? Outpatient follow-up with GI. 5.? Proteus bacteremia secondary to left great toe neuropathic infected wound-podiatry following.? Underwent left hallux amputation 10/21/2021.? Repeat blood culture with no growth. IV Rocephin during admission with transition to Keflex to complete course. Podiatry will continue to follow at TCU for dressing changes and ongoing management. 6.? Suspected new onset atrial fibrillation-cardiology consulted.? Did not initiate anticoagulation secondary to GI bleed.? Continue rate control regimen. Outpatient follow-up. 7. Type 2 diabetes [id number] with sliding scale insulin.? Continue home insulin regimen. 8. Hypothyroidism-continue Synthroid regimen. 9. CAD-continue medical management. 10. Hyperlipidemia-continue statin. 11. Depression/anxiety-on bupropion, Ativan, paroxetine. Physical Exam Const alert, oriented x3 and no apparent distress Orientation / Consciousness: awake, oriented to person, oriented to place and oriented to time HEENT normocephalic Mouth: dry mucous membranes Eyes PERRL, EOMs intact bilaterally and conjunctivae normal Neck no lymphadenopathy Resp normal respiratory effort and clear to auscultation bilaterally Cardio no murmurs Cardio Narrative: a.fib, rate controlled. Peripheral Pulses: pulses 2+ throughout GI normal to inspection, nondistended, normoactive bowel sounds, non-tender and non-distended Extremity normal to inspection Skin no rashes or lesions noted Skin Narrative: Left foot dressing intact, status post left hallux amputation Lesions: no lesions Rashes: no rashes Trauma: no lacerations or abrasions Neuro CN's II-XII intact bilaterally, no focal motor deficits, no sensory deficits noted and deep tendon reflexes 2+ bilaterally Psych mental status grossly normal and affect normal Patient seen and examined prior to discharge. Physical assessment as noted above. Patient is stable for discharge with follow up recommendations as noted above. This patient was seen by DEVON Woodward under the supervision of Dr. Aldrich. Time spent examining patient, reviewing data and subsequent management of care: 25 minutes Weight / BMI Weight Weight: 241 lb 2.971 oz Body Mass Index (BMI) 39.1 ABG / Lab / Microbiology Data Result Diagrams: 10/22/21 06:24 10/22/21 06:24 Laboratory: Laboratory Results - last 24 hr 10/21/21 16:49: POC Glucose 208 H 10/21/21 22:28: POC Glucose 311 H 10/22/21 06:24: WBC 12.8 H, RBC 3.33 L, Hgb 10.1 L, Hct 31.3 L, MCV 94.0, MCH 30.3, MCHC 32.3, RDW Std Deviation 52.5 H, RDW Coeff of Magen 15.2 H, Plt Count 130 L, MPV 11.5, Immature Gran % (Auto) 0.500, Neut % (Auto) 87.1 H, Lymph % (Auto) 6.1 L, Ransom % (Auto) 5.2, Eos % (Auto) 1.0, Baso % (Auto) 0.1, Absolute Neuts (auto) 11.2 H, Absolute Lymphs (auto) 0.78 L, Nucleated RBC % 0 10/22/21 06:24: Sodium 143, Potassium 3.9, Chloride 109 H, Carbon Dioxide 28.0, Anion Gap 6, BUN 47 H, Creatinine 1.17 H, Estim Creat Clear Calc 43.14, Est GFR (MDRD) Af Amer 60, Est GFR (MDRD) Non-Af 49 L, BUN/Creatinine Ratio 40.2 H, Glucose 211 H, Calcium 8.7 10/22/21 06:37: POC Glucose 187 H 10/22/21 11:11: POC Glucose 197 H Microbiology: Microbiology 10/21/21 13:38 Tissue - Great Toe Wound Culture - Preliminary Gram negative marita 10/21/21 13:32 Bone - Great Toe Wound Culture - Preliminary Gram negative mairta 10/14/21 12:46 Blood Culture (Wb) - Anticubital Right Blood Culture - Final No growth in 5 days. 10/14/21 12:35 Blood Culture (Wb) - Anticubital Left Blood Culture - Final Proteus mirabilis 10/16/21 09:50 Nasal Secretion SARS-CoV-2 Antigen (Rapid) - Final 10/14/21 14:30 Wound - Toe Gram Stain - Final 10/14/21 14:30 Wound - Toe Wound Culture - Final Proteus mirabilis 10/15/21 06:17 Stool Stool Occult Blood (JARRETT) - Final Occult Blood Positive Radiography Diagnostic Testing: Radiology Impression Foot X-Ray 10/21/21 13:00 IMPRESSION: Amputation first metatarsal phalangeal joint. Please correlate with clinical service. Electronically Signed: Avinash Boone MD at 18:20 EDT , Foot X-Ray 10/21/21 14:37 IMPRESSION: Status post amputation first metatarsal phalangeal joint. Accessory ossicles versus fracture fragments medial aspect talus. Electronically Signed: Avinash Boone MD at 18:28 EDT , Meaningful Use Info Meaningful Use Diagnoses (Choose all that apply): CHF CHF LAURA/ARB ordered at discharge?: Yes Documented LVEF (%): 55 Discharge Plan Admission Admit Date/Time: 10/14/21 12:31 Primary Reason for Your Visit: COPD, CHF, anemia, left great toe infected wound Attending Provider: Quynh Aldrich Primary Care Provider: Froy Gonzales Consulting Providers: Noah No ; Brenna Wilcox ; Froy Gutierres ; Augie Roberts ; Christophe Corbin Instructions Additional Instructions / Restrictions: Elevate left lower extremity at all times of breast. Podiatry to follow for postoperative care. Discharge Orders/Prescriptions Prescriptions: New nystatin 100,000 unit/mL Suspension 500,000 unit PO 4X/DAY 5 Days Qty: 100 0RF prednisone 20 mg Tablet 40 mg PO BREAKFAST 4 Days Qty: 8 0RF pantoprazole 40 mg Tablet,Delayed Release (Dr/Ec) 40 mg PO BID Qty: 0 0RF cephalexin 500 mg Capsule 500 mg PO Q8 2 Days Qty: 6 0RF Continued aspirin [Adult Aspirin Regimen] 81 mg tablet,delayed release (DR/EC) 81 mg PO DAILY Trulicity 0.75 mg/0.5 mL pen injector 0.75 mg subcut QWEEK Label Comments: 0.5 ML (0.75MG) SQ EVERYMWEEK DX:X Rx Instructions: pt takes on mondays levothyroxine 88 mcg Tablet 88 mcg PO DAILY furosemide 80 mg Tablet 80 mg PO DAILY trazodone 100 mg Tablet 100 mg PO QHS montelukast 10 mg Tablet 10 mg PO DAILY lorazepam 1 mg Tablet 1 mg PO QHS fluticasone propionate 50 mcg/actuation Eagle,Suspension 1 spray INTRANASAL DAILY PRN (Reason: allergies) bupropion HCl 300 mg Tablet Extended Release 24 Hr 300 mg PO QHS cholecalciferol (vitamin D3) [Vitamin D3] 50 mcg (2,000 unit) Capsule 50 mcg PO DAILY fluticasone furoate-vilanterol [Breo Ellipta] 100-25 mcg/dose Blister With Device 1 inh INHALATION DAILY ipratropium-albuterol 0.5 mg-3 mg(2.5 mg base)/3 mL solution for nebulization 3 ml INHALATION BID PRN (Reason: sob) insulin lispro 100 unit/mL insulin pen See Protocol SUBCUT QACHS Protocol: 6. Sliding Scale Insulin Custom Condition: 151-175 Dose/Route: 5 Condition: 176-200 Dose/Route: 7 Condition: 201-250 Dose/Route: 9 Condition: 251-300 Dose/Route: 11 Condition: 301-350 Dose/Route: 13 Condition: 351-400 Dose/Route: 15 Condition: 401-450 Dose/Route: 19 Protocol Text: Custom Sliding Scale Rx Instructions: 10 units plus sliding scale. SEE SLIDING SCALE paroxetine HCl 30 mg tablet 60 mg PO QHS insulin detemir U-100 100 unit/mL (3 mL) insulin pen 37 unit SUBCUT QHS amlodipine 10 mg Tablet 10 mg PO DAILY gabapentin [Neurontin] 100 mg Capsule 100 mg PO TID hydrocodone-acetaminophen 5-325 mg tablet 1 tab PO Q6H PRN (Reason: pain) 3 Days Qty: 12 0RF carvedilol 6.25 mg tablet 6.25 mg PO BID Qty: 60 11RF atorvastatin 80 mg tablet 80 mg PO QHS Qty: 30 11RF Discontinued meloxicam 7.5 mg tablet 7.5 mg PO DAILY cephalexin 500 mg capsule 500 mg PO Q6 Qty: 40 0RF clindamycin HCl 150 mg capsule 300 mg PO 4X/DAY Qty: 56 0RF Referrals / Follow Up: Noah No DPM [Med Staff - Active Staff] - See Referral Note (Podiatry to follow at [facility]) Froy Gonzales MD [Primary Care Provider] - In 1 Week Torrey Mccrary DO [Med Staff - Active Staff] - Within 2 Weeks Karyn Valladares NP, DIRECTOR OF CONVENTION SERVICES-C [Non-Staff -Ordering Privileges] - Within 2 Weeks Disposition Disposition (needs filled in before D/C Order can be placed): [facility] Documented by User: Dr. Quynh Aldrich MD 10/22/21 14:04 Providers Date of Admission: 10/14/21 Reason For Visit: ACUTE ON CHRONIC FOOT ULCERS Diagnosis Discharge Diagnosis (1) Nondisplaced fracture of distal phalanx of right great toe, initial encounter for closed fracture: Status: Acute Code(s): S92.424A - Nondisplaced fracture of distal phalanx of right great toe, initial encounter for closed fracture (2) Gangrenous toe: Status: Acute Code(s): I96 - Gangrene, not elsewhere classified (3) Dry gangrene: Status: Acute Code(s): I96 - Gangrene, not elsewhere classified (4) Decubitus ulcer of dorsum of foot, stage 2: Status: Acute Code(s): L89.892 - Pressure ulcer of other site, stage 2 Medications at Discharge Home Medications bupropion HCl 300 mg 24 hr tablet, extended release 300 mg PO QHS depression 09/02/20 cholecalciferol (vitamin D3) 50 mcg (2,000 unit) capsule (Vitamin D3) 50 mcg PO DAILY supplement 09/02/20 fluticasone furoate 100 mcg-vilanterol 25 mcg/dose inhalation powder (Breo Ellipta) 1 inh inhalation DAILY breathing 09/02/20 fluticasone propionate 50 mcg/actuation nasal spray,suspension 1 spray intranasal DAILY PRN allergies 09/02/20 furosemide 80 mg tablet 80 mg PO DAILY water pill 09/02/20 levothyroxine 88 mcg tablet 88 mcg PO DAILY thyroid 09/02/20 lorazepam 1 mg tablet 1 mg PO QHS anxiety 09/02/20 montelukast 10 mg tablet 10 mg PO DAILY allergies 09/02/20 trazodone 100 mg tablet 100 mg PO QHS sleep 09/02/20 carvedilol 6.25 mg tablet 6.25 mg PO BID #60 tabs 01/06/21 atorvastatin 80 mg tablet 80 mg PO QHS #30 tabs 04/08/21 aspirin 81 mg tablet,delayed release (Adult Aspirin Regimen) 81 mg PO DAILY heart 05/17/21 amlodipine 10 mg tablet 10 mg PO DAILY bp 08/25/21 gabapentin 100 mg capsule (Neurontin) 100 mg PO TID nerve pain 08/25/21 dulaglutide 0.75 mg/0.5 mL subcutaneous pen injector (Trulicity) 0.75 mg subcut QWEEK dm 09/02/21 insulin detemir U-100 100 unit/mL (3 mL) subcutaneous pen 37 unit subcut QHS blood sugar 09/02/21 insulin lispro 100 unit/mL subcutaneous pen See Protocol subcut QACHS blood sugar 09/02/21 ipratropium 0.5 mg-albuterol 3 mg (2.5 mg base)/3 mL nebulization soln 3 ml inhalation BID PRN sob 09/02/21 paroxetine HCl 30 mg tablet 60 mg PO QHS mental health 09/02/21 hydrocodone-acetaminophen 5-325mg 5mg-325mg 1 tab PO Q6H PRN pain 3 days #12 tabs 10/02/21 cephalexin 500 mg capsule 500 mg PO Q8 2 days #6 caps 10/22/21 nystatin 100,000 unit/mL oral suspension 500,000 unit (5 mL) PO 4X/DAY 5 days #100 mL 10/22/21 pantoprazole 40 mg tablet,delayed release 40 mg PO BID #0 tabs 10/22/21 prednisone 20 mg tablet 40 mg PO BREAKFAST 4 days #8 tabs 10/22/21 ABG / Lab / Microbiology Data Result Diagrams: 10/22/21 06:24 10/22/21 06:24 Discharge Plan Admission Admit Date/Time: 10/14/21 12:31 Primary Reason for Your Visit: COPD, CHF, anemia, left great toe infected wound Attending Provider: Quynh Aldrich Primary Care Provider: Froy Gonzales Consulting Providers: Noah No ; Brenna Wilcox ; Froy Gutierres ; Augie Roberts ; Christophe Corbin Instructions Additional Instructions / Restrictions: Elevate left lower extremity at all times of breast. Podiatry to follow for postoperative care. Discharge Orders/Prescriptions Prescriptions: New nystatin 100,000 unit/mL Suspension 500,000 unit PO 4X/DAY 5 Days Qty: 100 0RF prednisone 20 mg Tablet 40 mg PO BREAKFAST 4 Days Qty: 8 0RF pantoprazole 40 mg Tablet,Delayed Release (Dr/Ec) 40 mg PO BID Qty: 0 0RF cephalexin 500 mg Capsule 500 mg PO Q8 2 Days Qty: 6 0RF Continued aspirin [Adult Aspirin Regimen] 81 mg tablet,delayed release (DR/EC) 81 mg PO DAILY Trulicity 0.75 mg/0.5 mL pen injector 0.75 mg subcut QWEEK Label Comments: 0.5 ML (0.75MG) SQ EVERYMWEEK DX:X Rx Instructions: pt takes on mondays levothyroxine 88 mcg Tablet 88 mcg PO DAILY furosemide 80 mg Tablet 80 mg PO DAILY trazodone 100 mg Tablet 100 mg PO QHS montelukast 10 mg Tablet 10 mg PO DAILY lorazepam 1 mg Tablet 1 mg PO QHS fluticasone propionate 50 mcg/actuation Eagle,Suspension 1 spray INTRANASAL DAILY PRN (Reason: allergies) bupropion HCl 300 mg Tablet Extended Release 24 Hr 300 mg PO QHS cholecalciferol (vitamin D3) [Vitamin D3] 50 mcg (2,000 unit) Capsule 50 mcg PO DAILY fluticasone furoate-vilanterol [Breo Ellipta] 100-25 mcg/dose Blister With Device 1 inh INHALATION DAILY ipratropium-albuterol 0.5 mg-3 mg(2.5 mg base)/3 mL solution for nebulization 3 ml INHALATION BID PRN (Reason: sob) insulin lispro 100 unit/mL insulin pen See Protocol SUBCUT QACHS Protocol: 6. Sliding Scale Insulin Custom Condition: 151-175 Dose/Route: 5 Condition: 176-200 Dose/Route: 7 Condition: 201-250 Dose/Route: 9 Condition: 251-300 Dose/Route: 11 Condition: 301-350 Dose/Route: 13 Condition: 351-400 Dose/Route: 15 Condition: 401-450 Dose/Route: 19 Protocol Text: Custom Sliding Scale Rx Instructions: 10 units plus sliding scale. SEE SLIDING SCALE paroxetine HCl 30 mg tablet 60 mg PO QHS insulin detemir U-100 100 unit/mL (3 mL) insulin pen 37 unit SUBCUT QHS amlodipine 10 mg Tablet 10 mg PO DAILY gabapentin [Neurontin] 100 mg Capsule 100 mg PO TID hydrocodone-acetaminophen 5-325 mg tablet 1 tab PO Q6H PRN (Reason: pain) 3 Days Qty: 12 0RF carvedilol 6.25 mg tablet 6.25 mg PO BID Qty: 60 11RF atorvastatin 80 mg tablet 80 mg PO QHS Qty: 30 11RF Discontinued meloxicam 7.5 mg tablet 7.5 mg PO DAILY cephalexin 500 mg capsule 500 mg PO Q6 Qty: 40 0RF clindamycin HCl 150 mg capsule 300 mg PO 4X/DAY Qty: 56 0RF Referrals / Follow Up: Noah No DPM [Med Staff - Active Staff] - See Referral Note (Podiatry to follow at [facility]) Froy Gonzales MD [Primary Care Provider] - In 1 Week Torrey Mccrary DO [Med Staff - Active Staff] - Within 2 Weeks Karyn Valladares NP, DIRECTOR OF CONVENTION SERVICES-C [Non-Staff -Ordering Privileges] - Within 2 Weeks Disposition Disposition (needs filled in before D/C Order can be placed): [facility] Charges/Coding Addendum Addendum: Patient seen by Laura OSORIO under my supervision Patient is a 66 y/o female with a PMH as outlined who was admitted with a complaint of chronic left foot ulcer. She had been seen in the ED couple of weeks prior and advised follow-up with podiatry but had not followed up. She had been following up with the wound clinic though. She fell on the day of admission and had pain in her total with associated increased discharge so she came into the ED. Imaging done showed nondisplaced fracture along the distal portion of the proximal phalanx of the great toe with soft tissue swelling and x-ray of the hip showed degenerative changes. She was admitted and managed for acute on chronic osteomyelitis with worsening left foot ulcers. She was started on IV vancomycin and Zosyn and podiatry consulted. Wound cultures grew Proteus and she also had Proteus bacteremia. She had left hallux amputation on 10/21/2021. Repeat blood cultures were negative. She was placed on IV Rocephin during admission and she was subsequently transitioned to Keflex. Hospital course was complicated by acute on chronic heart failure with preserved ejection fraction as well as acute on chronic hypoxic respiratory failure due to acute exacerbation of COPD and heart failure. Her oxygen was weaned down to her baseline of 3 to 4 L of oxygen. She was given breathing treatments of bronchodilators as well as IV Solu-Medrol and was transitioned to p.o. prednisone. There was concern about new onset A. fib. She was placed on beta-blockers and cardiology was consulted. There was concern about GI bleed so she did have an EGD and colonoscopy which showed a bleeding gastric ulcer and she was placed on PPI twice daily. She also had 2 polyps removed and there was evidence of significant diverticular disease. Her beta-blockers were increased to help with rate control. She was to follow-up with cardiology on outpatient basis. She remained stable and was discharged to the transitional care unit on 10/22/2021. She is to follow-up with her PCP and podiatry within 1 to 2 weeks. Patient seen and examined prior to discharge. She had no active complaints and had an uneventful night. Review of systems otherwise negative. Labs and vitals reviewed. Medication reviewed and reconciled. O/E: Const alert, oriented x3 and no apparent distress Orientation / Consciousness: awake, oriented to person, oriented to place and oriented to time HEENT normocephalic Mouth: dry mucous membranes Eyes PERRL, EOMs intact bilaterally and conjunctivae normal Neck no lymphadenopathy Resp mildly diminished breath sounds bibasally, no wheezes or crackles. On 3L of oxygen which is her baseline Cardio no murmurs Cardio Narrative: a.fib, rate controlled. Peripheral Pulses: pulses 2+ throughout GI normal to inspection, nondistended, normoactive bowel sounds, non-tender and non-distended Extremity normal to inspection Skin no rashes or lesions noted Skin Narrative: Left foot dressing intact, status post left hallux amputation Neuro CN's II-XII intact bilaterally, no focal motor deficits, no sensory deficits noted and deep tendon reflexes 2+ bilaterally Psych mental status grossly normal and affect normal Rest as per Laura Suarez DIRECTOR OF CONVENTION SERVICES-C's note, which I have reviewed and endorsed. Total time I spent on the care and discharge of the patient today: 28 minutes with Laura Suarez spending 25 minutes making a total of 53 minutes. Visit Charges Inpatient E&M: 26497 Disch Hosp
[2021-10-22] MEDS: Cephalexin 500 MG Capsule PO (14:29)
--- NOTE | 2021-10-22 15:28 | NURSING ---
attempted to call patient's son, Chava, to update about patient being transferred to TCU. Did not answer the phone. Pt aware.
== END 2021-10-22 15:29 | disposition skilled nursing facility (03) | DRG 617 ==
LOC: ED 12:34 → MS3 12:53 → PCU 10-15 19:39
PROVIDERS: Anesthesiology; Hospitalist; Internal Medicine; Internal Medicine Gastroenterology; Nurse Practitioner Family; Student in an Organized Health Care Education/Training Program; Admitting Provider Internal Medicine; Emergency Provider Emergency Medicine; PCP Family Medicine; Visit Provider Student in an Organized Health Care Education/Training Program
PROC: 0DJD8ZZ Inspection of Lower Intestinal Tract, Via Natural or Artificial Opening Endoscopic (ICD-10-PCS; CPT 45378; principal; 2021-10-20 06:55)
PROC: 0Y6Q0Z0 Detachment at Left 1st Toe, Complete, Open Approach (ICD-10-PCS; principal; 2021-10-21 12:45)
DX: E11.621 Type 2 diabetes mellitus with foot ulcer (principal); M86.172 Other acute osteomyelitis, left ankle and foot; R78.81 Bacteremia; I96 Gangrene, not elsewhere classified; I13.0 Hypertensive heart and chronic kidney disease with heart failure and stage 1 through stage 4 chronic kidney disease, or unspecified chronic kidney disease; B37.81 Candidal esophagitis; D62 Acute posthemorrhagic anemia; E11.52 Type 2 diabetes mellitus with diabetic peripheral angiopathy with gangrene; J44.1 Chronic obstructive pulmonary disease with (acute) exacerbation; L03.116 Cellulitis of left lower limb; I27.21 Secondary pulmonary arterial hypertension; I11.0 Hypertensive heart disease with heart failure; E11.42 Type 2 diabetes mellitus with diabetic polyneuropathy; L89.622 Pressure ulcer of left heel, stage 2; Z79.4 Long term (current) use of insulin; L89.892 Pressure ulcer of other site, stage 2; I48.0 Paroxysmal atrial fibrillation; N18.31 Chronic kidney disease, stage 3a; E11.69 Type 2 diabetes mellitus with other specified complication; K62.1 Rectal polyp; D50.9 Iron deficiency anemia, unspecified; S70.02XA Contusion of left hip, initial encounter; E03.9 Hypothyroidism, unspecified; I25.10 Atherosclerotic heart disease of native coronary artery without angina pectoris; W08.XXXA Fall from other furniture, initial encounter; E78.5 Hyperlipidemia, unspecified; M19.90 Unspecified osteoarthritis, unspecified site; F41.9 Anxiety disorder, unspecified; K63.5 Polyp of colon; S92.425A Nondisplaced fracture of distal phalanx of left great toe, initial encounter for closed fracture; I36.1 Nonrheumatic tricuspid (valve) insufficiency; I34.0 Nonrheumatic mitral (valve) insufficiency; G47.33 Obstructive sleep apnea (adult) (pediatric); I25.2 Old myocardial infarction; Y92.099 Unspecified place in other non-institutional residence as the place of occurrence of the external cause; F32.A Depression, unspecified; Z66 Do not resuscitate; B96.4 Proteus (mirabilis) (morganii) as the cause of diseases classified elsewhere; Z20.822 Contact with and (suspected) exposure to COVID-19; E66.9 Obesity, unspecified; Z68.39 Body mass index [BMI] 39.0-39.9, adult; Z99.81 Dependence on supplemental oxygen; Z79.1 Long term (current) use of non-steroidal anti-inflammatories (NSAID); Z79.82 Long term (current) use of aspirin; Z79.51 Long term (current) use of inhaled steroids; Z79.890 Hormone replacement therapy; Z79.899 Other long term (current) drug therapy; Z87.891 Personal history of nicotine dependence; Z95.5 Presence of coronary angioplasty implant and graft
CPT/HCPCS: 36415; 71045; 73502; 73620; 73630; 76000; 78582; 80048; 80053; 80202; 82274; 82728; 82962; 83036; 83540; 83550; 83605; 85014; 85018; 85025; 85045; 85379; 85610; 85730; 86850; 86900; 86901; 86920; 86922; 87015; 87040; 87070; 87075; 87077; 87102; 87116; 87176; 87186; 87205; 87206; 87426; 87640; 88305; 88311; 88312; 88342; 93005; 93306; 93923; 93970; 94002; 94003; 94640; 94762; 97110; 97162; 97166; 97530; 97535; 97802; 99285; A9540; A9567; J7030; J7040; J7050; J7120; P9016; A4216; J1940; J2405

== ENCOUNTER 2021-10-22 15:57 | Inpatient (IN) | payer MEDICARE, MEDICAID, SELFPAY ==
[2021-10-22 16:19] VITALS: BP 157/77; PULSE 114; RESP 14; TEMP 36.3; O2SAT 98; BMI 40.9
--- NOTE | 2021-10-22 17:05 | NURSING ---
Spoke with Laura Suarez NP to clarify medication list orders. per Laura Cintron, pt is to have Insulin Lispro 10 units ACHS, along with sliding scale and Insulin Detemir U-100, 37 units at HS.
--- NOTE | 2021-10-22 17:26 | HP.PCM_ITS ---
HPI - General General Date of Admission: 10/22/21 Date of Service: 10/24/21 Chief Complaint: Here for rehab. HPI Narrative 10/14/2021 SONA WILSON, is a 66 Female who presents to [facility] Emergency Department with lower extremity injury. Chronic left heel ulcer, left great toe ulcer, foul discharge from wounds. Goes to wound center, on oral antibiotics. Increasing pain, fall, walks with walker, but now using wheelchair. Left hip pain, X-ray left hip negative. WBC 18.7, Hemoglobin 7.0. X-ray left foot shows fracture. Zosyn, Vancomycin IV for left foot cellulitis/osteomyelitis. 10/14/2021 Admit to Hospital. Zosyn, Vancomycin IV for left foot cellulitis. 10/15/2021 Shortness of breath with wheezing. Stool positive for blood, Hemoglobin 6.8, transfuse 1 unit PRBC. Hold aspirin, give IV PPI, consult GI, transfuse 1 unit PRBC for GI bleed. Wound culture growing gram negatie rods. 10/16/2021 BiPAP for acute respiratory failure, on 8 liters oxygen. IV Lasix for congestive heart failure. IV Solu-Medrol for COPD exacerbation. Hemoglobin 8.8 status post 2 units PRBC transfusion. Wound culture growing Proteus Mirabilis, antibiotics changed to Ceftriaxone. 10/17/2021 Oxygen 9 liters per nasal cannula. Hemoglobin 8.8. 10/17/2021 Echo grossly normal LVSF. EF 55%. Right ventricular systolic pressure 55mm HG consistent with pulmonary hypertension. 10/17/2021 Atrial fibrillation with rapid ventricular response treated with Cardizem 25mg IV. 10/17/2021 MARY doppler shows bilateral lower extremity peripheral arterial occlusive disease. 10/18/2021 Transition off cardizem drip, to beta skyler for atrial fibrillation. 10/19/2021 Sitting in chair, no distress. Oxygen 5 liters, baseline 3 to 4 liters. Hemoglobin 9.4. Ceftriaxone IV left foot ulcer/cellulitis. VQ negative pulmonary embolism, bilateral lower extremity Doppler negative DVT. 10/20/2021 Dr. Mccrary EGD showed candidiasis, non-bleeding gastric ulcer. 10/20/2021 Dr. Mccrary colonoscopy showed severe diverticulosis, no bleeding, 2 polyps removed. 10/20/2021 Left foot pain, plan left hallux amputation 10/21/2021. 10/21/2021 Dr. Guidry performed left hallux amputation. 10/22/2021 Admit to TCU with debility, here for rehabilitation, strengthening, prior to discharge to [facility]. [facility] Medical History (Updated 10/22/21 @ 17:[address] Umer Deleon MD) Acute cervical myofascial strain Acute on chronic respiratory failure with hypoxemia Asthma Atherosclerotic heart disease of [place] coronary artery without angina pectoris Chronic heart failure with preserved ejection fraction (HFpEF) Chronic ulcer of great toe of left foot Closed head injury Congestive heart failure (CHF) COPD (chronic obstructive pulmonary disease) Decubitus ulcer of left heel, stage 3 Decubitus ulcer, heel, left, unstageable Depression Diabetes type 2, controlled Diverticulitis Essential hypertension Former smoker History of amputation of left great toe History of non-ST elevation myocardial infarction (NSTEMI) (02/24/17) Hyperlipidemia Hypothyroid Myocardial infarct Non-rheumatic tricuspid valve insufficiency Nonrheumatic mitral (valve) insufficiency Obesity Obstructive sleep apnea On home O2 Secondary pulmonary arterial hypertension Type 2 diabetes mellitus Home Medications bupropion HCl 300 mg 24 hr tablet, extended release 300 mg PO QHS depression 09/02/20 [History Last Taken 10/13/21] cholecalciferol (vitamin D3) 50 mcg (2,000 unit) capsule (Vitamin D3) 50 mcg PO DAILY supplement 09/02/20 [History Last Taken 10/14/21 09:30] fluticasone furoate 100 mcg-vilanterol 25 mcg/dose inhalation powder (Breo Ellipta) 1 inh inhalation DAILY breathing 09/02/20 [History Last Taken 10/14/21] fluticasone propionate 50 mcg/actuation nasal spray,suspension 1 spray intranasal DAILY PRN Allergies 09/02/20 [History Last Taken 09/02/20] furosemide 80 mg tablet 80 mg PO DAILY water pill 09/02/20 [History Last Taken 10/14/21] levothyroxine 88 mcg tablet 88 mcg PO DAILY thyroid 09/02/20 [History Last Taken 10/14/21] lorazepam 1 mg tablet 1 mg PO QHS anxiety 09/02/20 [History Last Taken 10/13/21] montelukast 10 mg tablet 10 mg PO DAILY allergies 09/02/20 [History Last Taken 10/14/21] trazodone 100 mg tablet 100 mg PO QHS sleep 09/02/20 [History Last Taken 10/13/21] aspirin 81 mg tablet,delayed release (Adult Aspirin Regimen) 81 mg PO DAILY heart 05/17/21 [History Last Taken 10/14/21 09:30] amlodipine 10 mg tablet 10 mg PO DAILY bp 08/25/21 [History Last Taken 10/14/21 09:30] gabapentin 100 mg capsule (Neurontin) 100 mg PO TID nerve pain 08/25/21 [History Last Taken 10/14/21] dulaglutide 0.75 mg/0.5 mL subcutaneous pen injector (Trulicity) 0.75 mg subcut QWEEK dm 09/02/21 [History Last Taken 10/10/21] insulin detemir U-100 100 unit/mL (3 mL) subcutaneous pen 37 unit subcut QHS blood sugar 09/02/21 [History Last Taken 10/13/21] insulin lispro 100 unit/mL subcutaneous pen See Protocol subcut QACHS blood sug ar 09/02/21 [History Last Taken 10/14/21] ipratropium 0.5 mg-albuterol 3 mg (2.5 mg base)/3 mL nebulization soln 3 ml inhalation BID PRN sob 09/02/21 [History Last Taken Unknown] paroxetine HCl 30 mg tablet 60 mg PO QHS mental health 09/02/21 [History Last Taken 10/13/21] hydrocodone-acetaminophen 5-325mg 5mg-325mg 1 tab PO Q6H PRN pain 3 days #12 tabs 10/02/21 [Rx Last Taken 10/14/21] atorvastatin 80 mg tablet 80 mg PO QHS Cholestrol 10/22/21 [History Last Taken Unknown] carvedilol 6.25 mg tablet 6.25 mg PO BID BP 10/22/21 [History Last Taken Unknown] cephalexin 500 mg capsule 500 mg PO Q8 Antibiotic 10/22/21 [History Last Taken Unknown] nystatin 100,000 unit/mL oral suspension 500,000 unit PO 4X/DAY Thrush 10/22/21 [History Last Taken Unknown] pantoprazole 40 mg tablet,delayed release 40 mg PO BID GERD 10/22/21 [History Last Taken Unknown] prednisone 20 mg tablet 40 mg PO BREAKFAST Steroid 10/22/21 [History Last Taken Unknown] Allergy/AdvReac Type Severity Reaction Status Date / Time Sulfa (Sulfonamide Allergy Anaphylaxis Verified 10/14/21 10:12 Antibiotics) sulfur dioxide Allergy Anaphylaxis Verified 10/14/21 10:12 Family History Grandmother Diabetes Mother Heart disease Surgical History H/O right heart catheterization History of cataract surgery History of coronary artery stent placement (02/24/17) Tubal ligation status Social History (Updated 10/22/21 @ 17:[address] Umer Deleon MD) household members: none housing: other details: [facility]. Smoking Status: Former smoker how long ago did patient quit smokin alcohol intake: former year quit: 1999 substance use type: does not use caffeine: Yes Type: carbonated beverages and tea ROS Constitutional Constitutional: Denies chills, fever(s) or weight gain ENT HEENT: Denies headache(s), nasal congestion or nasal discharge Cardiovascular Cardiovascular: Denies chest pain or palpitations Respiratory/Chest Respiratory/Chest: Denies cough, excessive phlegm production or shortness of breath with exertion Gastrointestinal Gastrointestinal: Denies abdominal pain, nausea or vomiting Genitourinary Genitourinary: Denies dysuria Musculoskeletal Musculoskeletal: Denies joint pain or joint swelling Integumentary Integumentary: Denies rash or wounds Neurologic Neurologic: Denies focal weakness, numbness or tingling Psychiatric Psychiatric: Denies anxiety, auditory hallucinations, depression, homicidal ideation or suicidal ideation Physical Exam Const alert General Appearance: cooperative HEENT normocephalic Eyes PERRL and EOMs intact bilaterally Neck supple, no JVD and no carotid bruits Resp normal respiratory effort, normal air movement and clear to auscultation bilaterally Cardio regular rate and regular rhythm GI normal to inspection, nondistended, normoactive bowel sounds, non-tender and non-distended Extremity normal capillary refill Extremity Narrative: Left foot dressed, LAURA wrapped. General Extremity: Negative for edema Skin no rashes or lesions noted General Skin Exam: no breakdown Psych affect normal Appearance: appropriate Results Lab / Micro Data Result Diagrams: 10/23/21 06:00 10/23/21 06:00 Assessment & Plan Assessment/Plan (1) Debility: (2) Dry gangrene: (3) Gangrenous toe: (4) Anemia: (5) Cellulitis of left foot: (6) Acute respiratory failure with hypoxia: (7) Atrial fibrillation with rapid ventricular response: (8) Depression: (9) Vitamin D deficiency: (10) Chronic obstructive pulmonary disease: (11) Heart failure with preserved ejection fraction: (12) Hypothyroidism: (13) Anxiety: (14) Insomnia: (15) Coronary artery disease: (16) Hyperlipidemia: (17) Hypertension: (18) Diabetic polyneuropathy: (19) Diabetes mellitus: (20) Osteoarthritis: PLAN: Plan 66 year old female with below past medical history hospitalized for infected gangrenous great toe requiring amputation 10/21/[address] Guidry, complicated by anemia secondary to upper gastrointestinal bleed, atrial fibrillation with rapid ventricular response, acute on chronic diastolic congestive heart failure, COPD exacerbation, acute respiratory failure with hypoxia requiring BiPAP rescue, admitted to TCU with debility, here for rehabilitation, strengthening, prior to discharge to [facility]. * Debility - PT/OT. * Pain - Tylenol 1000mg q6h prn pain (1-3), Oxycodone 10mg q4h prn pain (4-10). * Bowel - senna/colace 2 tablets bid, Dulcolax 10mg pr daily prn. * Adult immunization - Administer pneumonia vaccine, covid19 vaccine, flu v accine as appropriate. * DVT prophylaxis - Hold, GI bleed. * Hypertension - Coreg 6.25mg bid, Amlodipine 10mg daily. * Coronary Artery Disease - Coreg 6.25mg bid, Aspirin 81mg daily. * Hyperlipidemia - Atorvastatin 80mg qhs. * Depression - Wellbutrin XL 300mg qhs, Paroxetine 60mg qhs, stable chronic retirement use, GDR not recommended. * Left foot cellulitis status post left hallux amputation - Keflex 500mg q8h thru 10/24/2021. * Diabetes Mellitus II - Trulicty 0.75mg qweek, Glargine 37 units qhs, Lispro 10 units QACHS. * Allergic rhinitis - Singulair 10mg daily, Flonase 1 spray nasal daily prn. * COPD - Breo 1 puff daily, Duoneb 3ml bid prn, prednisone 40mg daily thru 10/24/2021. * Chronic diastolic congestive heart failure - Coreg 6.25mg bid, Furosemide 80mg daily. * Diabetic polyneuropathy - Gabapentin 300mg tid. * Nutrition -Say 1 packet po bid. * Hypothyroidism - Levothyroxine 88mcg daily. 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 * Thrush - Nystatin 500,000 4x/day x 10 days. * GERD - Pantoprazole 40mg bid. * Insomnia - Trazodone 100mg qhs.
[2021-10-22 17:56] LABS: Bedside Glucose 213 mg/dL (74-106)
[2021-10-22] MEDS: HYDROcodone Bitartrate/Apap 5/325 Tablet PO (20:56)
[2021-10-22 21:00] VITALS: PULSE 88; RESP 18; O2SAT 95
[2021-10-22] MEDS: Senna/Docusate Sodium 1 Tablet 2 TABLET PO (21:00)
[2021-10-22] MEDS: Pantoprazole Sodium 40 MG Tablet PO (21:00)
[2021-10-22] MEDS: LORazepam 1 MG Tablet PO (21:01)
[2021-10-22] MEDS: Carvedilol 6.25 MG Tablet PO (21:01)
[2021-10-22] MEDS: Atorvastatin Calcium 80 MG Tablet PO (21:03)
[2021-10-22] MEDS: traZODone 100 MG Tablet PO (21:03)
[2021-10-22] MEDS: Gabapentin 100 MG Capsule PO (21:03)
[2021-10-22] MEDS: Cephalexin 500 MG Capsule PO (21:03)
[2021-10-22] MEDS: Paroxetine 20 MG Tablet 60 MG PO (21:04)
[2021-10-22] MEDS: buPROPion (XL) 300 MG TABLET.XL PO (21:05)
[2021-10-22] MEDS: NYSTATIN 500,000 UNIT/5 ML UDC 500000 UNIT PO (21:09)
[2021-10-22 22:00] LABS: Bedside Glucose 269 mg/dL (74-106)
[2021-10-22] MEDS: Insulin Glargine-YFGN 100 UNIT/ML Pen 37 UNIT SC (22:06)
[2021-10-22] MEDS: Insulin Lispro 100 UNIT/ML INSULN.PEN 10 UNIT SC (22:11)
[2021-10-23] MEDS: HYDROcodone Bitartrate/Apap 5/325 Tablet PO ×3 (04:13→20:42)
--- NOTE | 2021-10-23 04:35 | NURSING ---
At HS, pt voiced concerns regarding PRN pain medications, wanting oxycodone instead of [place]. Encouraged to try the [place] to see how effective it is. Pt describes pain as sharp and burning. Note left for Dr. Deleon regarding gabapentin, to see if it should be increased. At 0400, pt requested more pain medication, stating [place] is somewhat effective.
[2021-10-23] MEDS: Fluticasone/Salmeterol 232-14 Inhaler 1 PUFF INHALATION ×2 (05:51→16:56)
[2021-10-23] MEDS: Menthol/Lanolin/Calamine/Znox 113 GM Tube 1 APPLIC TOPICAL ×2 (05:53→16:59)
[2021-10-23] MEDS: Carvedilol 6.25 MG Tablet PO ×2 (05:54→16:56)
[2021-10-23] MEDS: Furosemide 80 MG Tablet PO (05:54)
[2021-10-23] MEDS: Cephalexin 500 MG Capsule PO ×3 (05:54→20:43)
[2021-10-23] MEDS: NYSTATIN 500,000 UNIT/5 ML UDC 500000 UNIT PO ×4 (05:55→20:45)
[2021-10-23] MEDS: amLODIPine 10 MG Tablet PO (05:55)
[2021-10-23] MEDS: Nystatin Powder 15gm Bottle 1 APPLIC TOPICAL ×2 (05:55→17:23)
[2021-10-23] MEDS: Senna/Docusate Sodium 1 Tablet 2 TABLET PO ×2 (05:56→16:56)
[2021-10-23] MEDS: Pantoprazole Sodium 40 MG Tablet PO ×2 (05:56→16:56)
[2021-10-23] MEDS: Montelukast 10 MG Tablet PO (05:57)
[2021-10-23] MEDS: Levothyroxine 88 MCG Tablet PO (05:57)
[2021-10-23] MEDS: Cholecalciferol (VIT D3) 25 MCG TABLET (1,000 UNITS) 50 MCG PO (05:57)
[2021-10-23] MEDS: Gabapentin 100 MG Capsule PO ×2 (06:01→14:59)
[2021-10-23 06:45] LABS: Absolute Lymphocyte Count 0.75 X10^3/uL (0.83-4.51); Absolute Neutrophil Count 10.3 X10^3/uL (2.0-7.7); Basophil# 0.01 X10^3/uL; Basophil% 0.1 % (0-1); Eosinophil# 0.12 X10^3/uL; Hematocrit 29.8 % (37-47); Hemoglobin 9.3 g/dL (12.0-15.0); Lymphocyte # 0.75 X10^3/ul (0.83-4.51); Lymphocyte % 6.4 % (19-41); Mean Corp Hgb Conc 31.2 g/dL (32-36); Mean Corpuscular Hgb 29.4 pg (27.0-32.0); Mean Corpuscular Volume 94.3 fL (81-99); Mean Platelet Vol. 11.6 fl (6.2-12.0); Monocyte# 0.52 X10^3/uL; Monocyte% 4.4 % (0-10); NRBC Flagged by Analyzer 0 % (0-5); Neutrophil # 10.34 X10^3/uL (2.7-7.7); Neutrophil % 87.5 % (47-70); Platelet Count 100 K/mm3 (150-450); RBC Distribution Width CV 15.2 % (11.6-14.6); RBC Distribution Width SD 52.7 fl (35.1-43.9); Red Blood Count 3.16 M/mm3 (4.2-5.4); White Blood Count 11.8 K/mm3 (4.4-11.0)
[2021-10-23 07:01] LABS: Bedside Glucose 247 mg/dL (74-106)
[2021-10-23 07:02] LABS: Anion Gap 5 (5-15); BUN 43 mg/dL (7-18); BUN/Creat Ratio 35.5 RATIO (10-20); Calcium,Total 8.7 mg/dL (8.5-10.1); Chloride 108 mmol/L (98-107); Creatinine, Serum 1.21 mg/dL (0.55-1.02); EST Glomerular Filtration Rate 47 mL/min (>60); Est Glom Filt Rate - Afr Amer 57 mL/min (>60); Estimated Creatinine Clearance 40.03 ml/min; Glucose 274 mg/dL (74-106); Sodium Level 143 mmol/L (136-145)
[2021-10-23] MEDS: Insulin Lispro 100 UNIT/ML INSULN.PEN 10 UNIT SC ×3 (08:33→16:56)
[2021-10-23] MEDS: predniSONE 20 MG Tablet 40 MG PO (08:36)
[2021-10-23] MEDS: Aspirin E.C. 81 MG Tablet PO (08:36)
[2021-10-23] MEDS: Juven (unflavored) Packet 1 PACKET PO ×2 (08:37→16:56)
[2021-10-23 11:41] LABS: Bedside Glucose 316 mg/dL (74-106)
[2021-10-23] MEDS: 0.9% Saline Lock 10 ML Syringe IV (12:24)
[2021-10-23] MEDS: Tuberculin,Purif.prot.deriv. 50 TU/ML Vial 0.1 ML ID (12:25)
[2021-10-23 14:00] VITALS: BP 151/66; PULSE 112; RESP 18; TEMP 36.4; O2SAT 96
--- NOTE | 2021-10-23 15:17 | NURSING ---
Notified Dr. Deleon of pt c/o of burning pain to left foot. Received order to increase Neurontin to 300 mg TID, order repeated back, will add order.
[2021-10-23 17:16] LABS: Bedside Glucose 274 mg/dL (74-106)
--- NOTE | 2021-10-23 19:41 | NURSING ---
CHRISTELLE Cross from [facility] called and requested an update on pt. Updated nurse on L. great toe amputation and that patient is very pleasant and resting at this time.
[2021-10-23] MEDS: traZODone 100 MG Tablet PO (20:43)
[2021-10-23] MEDS: Atorvastatin Calcium 80 MG Tablet PO (20:44)
[2021-10-23] MEDS: buPROPion (XL) 300 MG TABLET.XL PO (20:44)
[2021-10-23] MEDS: Paroxetine 20 MG Tablet 60 MG PO (20:44)
[2021-10-23] MEDS: Insulin Lispro 100 UNIT/ML INSULN.PEN 15 UNIT SC (20:49)
[2021-10-23] MEDS: Insulin Glargine-YFGN 100 UNIT/ML Pen 45 UNIT SC (20:51)
[2021-10-23 21:00] VITALS: O2SAT 95
[2021-10-23] MEDS: LORazepam 1 MG Tablet PO (21:08)
[2021-10-23] MEDS: Gabapentin 300 MG Capsule PO (21:08)
--- NOTE | 2021-10-23 21:09 | NURSING ---
SL in left antecubital removed at this time d/t dried blood and drainage noted at the site. SL in right antecubital was leaking during flush and was removed as well. Both sites are free from bleeding or edema at this time. Catheters for both sites intact. Pt denies pain or discomfort at sites. Pt tolerated removal well.
[2021-10-23 21:35] LABS: Bedside Glucose 347 mg/dL (74-106)
[2021-10-23] MEDS: Acetaminophen 500 MG Tablet 1000 MG PO (22:49)
[2021-10-23] MEDS: oxyCODONE 5 MG Tablet 10 MG PO (22:49)
--- NOTE | 2021-10-23 22:52 | NURSING ---
Addendum entered by Jessa Puckett 10/24/21 00:05: PRN oxycodone and tylenol moderately effective. Pt is resting well. Original Note: Pt received first 300 mg dose of gabapentin this evening at 2107, along with PRN [place]. At 2214, pt still verbalizing sharp, burning pain rated at a 10/10. Dr. Deleon notified. PRN [place] discontinued. New orders entered for Tylenol 1000 mg q 8 hrs PRN and oxycodone 10 mg q 4 hrs PRN with both medication having a dose ordered for now. Pt voices appreciation for new orders.
[2021-10-24] MEDS: oxyCODONE 5 MG Tablet 10 MG PO ×4 (05:27→22:20)
[2021-10-24] MEDS: Cephalexin 500 MG Capsule PO ×3 (05:28→22:19)
[2021-10-24] MEDS: Senna/Docusate Sodium 1 Tablet 2 TABLET PO ×2 (05:28→17:59)
[2021-10-24] MEDS: Cholecalciferol (VIT D3) 25 MCG TABLET (1,000 UNITS) 50 MCG PO (05:29)
[2021-10-24] MEDS: Levothyroxine 88 MCG Tablet PO (05:30)
[2021-10-24] MEDS: Montelukast 10 MG Tablet PO (05:30)
[2021-10-24] MEDS: Carvedilol 6.25 MG Tablet PO ×2 (05:30→18:00)
[2021-10-24] MEDS: amLODIPine 10 MG Tablet PO (05:30)
[2021-10-24] MEDS: Furosemide 80 MG Tablet PO (05:30)
[2021-10-24] MEDS: Pantoprazole Sodium 40 MG Tablet PO ×2 (05:31→17:59)
[2021-10-24] MEDS: Fluticasone/Salmeterol 232-14 Inhaler 1 PUFF INHALATION ×2 (05:31→18:01)
[2021-10-24] MEDS: NYSTATIN 500,000 UNIT/5 ML UDC 500000 UNIT PO ×4 (05:31→22:20)
[2021-10-24] MEDS: Gabapentin 300 MG Capsule PO ×3 (05:33→22:19)
[2021-10-24] MEDS: Nystatin Powder 15gm Bottle 1 APPLIC TOPICAL ×2 (05:38→18:01)
[2021-10-24] MEDS: Menthol/Lanolin/Calamine/Znox 113 GM Tube 1 APPLIC TOPICAL ×2 (05:38→18:01)
[2021-10-24 05:40] VITALS: BP 141/72; PULSE 95; O2SAT 98
[2021-10-24 06:46] LABS: Bedside Glucose 244 mg/dL (74-106)
[2021-10-24 07:34] VITALS: O2SAT 98
[2021-10-24] MEDS: Insulin Lispro 100 UNIT/ML INSULN.PEN 15 UNIT SC ×4 (08:10→22:22)
[2021-10-24] MEDS: predniSONE 20 MG Tablet 40 MG PO (08:10)
[2021-10-24] MEDS: Juven (unflavored) Packet 1 PACKET PO ×2 (08:10→17:59)
[2021-10-24] MEDS: Aspirin E.C. 81 MG Tablet PO (08:10)
[2021-10-24 11:40] LABS: Bedside Glucose 182 mg/dL (74-106)
[2021-10-24] MEDS: Acetaminophen 500 MG Tablet 1000 MG PO (12:11)
[2021-10-24 14:00] VITALS: BP 153/59; PULSE 105; RESP 16; TEMP 37.1; O2SAT 96
--- NOTE | 2021-10-24 15:07 | CASEMGMT ---
Social Work Met with patient to complete initial assessment. Introduced self and role. Verified/updated contacts. Discussed code status and MOLST form. Pt confirms DNR-CCA, no intubation. MOLST communicated to , placed on chart. Pt expressed wanting to complete advanced directives. SW to complete with pt prior to DC as time allows. Explained [facility] insurance with NRD 10/25 and continued stay is not guaranteed with each review. Pt resides at [facility], however, pt expresses not wanting to return d/t not providing good care and it is dirty. Pt is unsure if she has a CM from [facility] or [facility] to assist with placement. SW to assist with contacting CM and possibly finding other placement for pt. SW educated that there are only three MELINDA accepted ALs in [facility] - [facility] Weaver and Arash Martin. Pt declined [facility] and declined wanting to go outside of [facility]; agreeable to Ar[facility] FLORIAN. SW to continue to follow for DC planning. Graciela Trivedi, SCIENTIFIC PUBLICATIONS EDITOR POT TENDER
--- NOTE | 2021-10-24 15:11 | PCM.PN.DRR ---
TCU RX Drug Regimen Review Subjective: 66 YOF admitted TCU post hospitalization for wound infection. Admitted to TCU for strengthening/ rehabilition prior to discharge to an Assisted Living facility. Objective: Allergies Sulfa (Sulfonamide Antibiotics) Allergy (Verified 10/14/21 10:12) Anaphylaxis sulfur dioxide Allergy (Verified 10/14/21 10:12) Anaphylaxis Current Medications Generic Name Dose Route Start Last Admin Trade Name Freq PRN Reason Stop Dose Admin Acetaminophen 1,000 mg 10/23/21 22:34 10/24/21 12:11 Acetaminophen 500 Mg Tablet PO 1,000 mg Q8H PRN PRN Administration Pain Score 1-3 Albuterol/Ipratropium 3 ml 10/22/21 16:38 Ipratropium/Albuterol Sulfate 3 Ml Ampul.Neb INHALATION BID PRN PRN Shortness of Breath Amlodipine Besylate 10 mg 10/23/21 06:00 10/24/21 05:30 Amlodipine 10 Mg Tablet PO 10 mg DAILY DHAVAL Administration Aspirin 81 mg 10/23/21 08:00 10/24/21 08:10 Aspirin E.C. 81 Mg Tablet PO 81 mg BREAKFAST DHAVAL Administration Atorvastatin Calcium 80 mg 10/22/21 22:00 10/23/21 20:44 Atorvastatin Calcium 80 Mg Tablet PO 80 mg QHS DHAVAL Administration Bisacodyl 10 mg 10/22/21 17:00 Bisacodyl 10 Mg Suppository RC DAILY PRN CONSTIPATION Bupropion HCl 300 mg 10/22/21 22:00 10/23/21 20:44 Bupropion (Xl) 300 Mg Tablet.Xl PO 300 mg QHS DHAVAL Administration COVID-19 Vaccine mRNA LNP-S (MOD) (PF) 100 mcg 10/25/21 11:00 Covid-19 Vacc,Mrna(Moderna)/Pf 100 Mcg/0.5 Ml Syringe IM 10/25/21 11:01 .ONCE ONE Calamine/Phenol 1 applic 10/23/21 06:00 10/24/21 05:38 Menthol/Lanolin/Calamine/Znox 113 Gm Tube TOPICAL 1 applic BID DHAVAL Administration Protocol Carvedilol 6.25 mg 10/22/21 19:00 10/24/21 05:30 Carvedilol 6.25 Mg Tablet PO 6.25 mg BID DHAVAL Administration Cephalexin 500 mg 10/22/21 22:00 10/24/21 05:28 Cephalexin 500 Mg Capsule PO 10/24/21 23:59 500 mg Q8 DHAVAL Administration Cholecalciferol 50 mcg 10/23/21 06:00 10/24/21 05:29 Cholecalciferol (Vit D3) 25 Mcg Tablet (1,000 Units) PO 50 mcg DAILY DHAVAL Administration Fluticasone Propionate 1 spray 10/22/21 16:38 Fluticasone 0.05% 1 Rueter Nasal.Sry NASAL DAILY PRN Allergies Furosemide 80 mg 10/23/21 06:00 10/24/21 05:30 Furosemide 80 Mg Tablet PO 80 mg DAILY DHAVAL Administration Gabapentin 300 mg 10/23/21 22:00 10/24/21 14:11 Gabapentin 300 Mg Capsule PO 300 mg TID DHAVAL Administration Insulin Glargine 45 unit 10/23/21 22:00 10/23/21 20:51 Insulin Glargine-Yfgn 100 Unit/Ml Pen SC 45 unit QHS DHAVAL Administration Insulin Human Lispro 15 unit 10/23/21 22:00 10/24/21 12:06 Insulin Lispro 100 Unit/Ml Insuln.Pen SC 15 units ACHS DHAVAL Administration L-Arginine/L-Glutamine/Calcium HMB 1 packet 10/23/21 08:00 10/24/21 08:10 Say (Unflavored) Packet PO 1 packet BIDCM DHAVAL Administration Levothyroxine Sodium 88 mcg 10/23/21 06:00 10/24/21 05:30 Levothyroxine 88 Mcg Tablet PO 88 mcg DAILY DHAVAL Administration Lorazepam 1 mg 10/22/21 22:00 10/23/21 21:08 Lorazepam 1 Mg Tablet PO 1 mg QHS DHAVAL Administration Montelukast Sodium 10 mg 10/23/21 06:00 10/24/21 05:30 Montelukast 10 Mg Tablet PO 10 mg DAILY DHAVAL Administration Non-Formulary Medication 0.75 mg 10/22/21 16:45 Dulaglutide [Trulicity] SC QWEEK [facility] Nystatin 500,000 unit 10/22/21 17:00 10/24/21 11:17 Nystatin 500,000 Unit/5 Ml Udc PO 11/01/21 17:01 500,000 unit 4X/DAY DHAVAL Administration Nystatin 1 applic 10/23/21 06:00 10/24/21 05:38 Nystatin Powder 15gm Bottle TOPICAL 1 applic BID DHAVAL Administration Protocol Oxycodone HCl 10 mg 10/23/21 22:36 10/24/21 12:11 Oxycodone 5 Mg Tablet PO 10 mg Q4H PRN PRN Administration Pain Score 4-10 Pantoprazole Sodium 40 mg 10/22/21 18:00 10/24/21 05:31 Pantoprazole Sodium 40 Mg Tablet PO 40 mg BID DHAVAL Administration Paroxetine HCl 60 mg 10/22/21 22:00 10/23/21 20:44 Paroxetine 20 Mg Tablet PO 60 mg QHS DHAVAL Administration Prednisone 40 mg 10/23/21 08:00 10/24/21 08:10 Prednisone 20 Mg Tablet PO 10/24/21 23:59 40 mg BREAKFAST DHAVAL Administration Fluticasone/Salmeterol 1 puff 10/23/21 06:00 10/24/21 05:31 Fluticasone/Salmeterol 232-14 Inhaler INHALATION 1 puff Q12 DHAVAL Administration Senna/Docusate Sodium 2 tablet 10/22/21 18:00 10/24/21 05:28 Senna/Docusate Sodium 1 Tablet PO 2 tablet BID DHAVAL Administration Sodium Chloride 10 - 40 ml 10/22/21 17:36 10/23/21 12:24 0.9% Saline Lock 10 Ml Syringe IV 20 ml UD PRN Administration SALINE FLUSH Trazodone HCl 100 mg 10/22/21 22:00 10/23/21 20:43 Trazodone 100 Mg Tablet PO 100 mg QHS DHAVAL Administration Tuberculin PPD 0.1 ml 10/30/21 10:00 Tuberculin,Purif.Prot.Deriv. 50 Tu/Ml Vial ID 10/30/21 10:01 X1 ONE Problem List (Last Updated 10/22/21 @ 17:[address] Umer Deleon MD) Osteoarthritis (Acute) Diabetes mellitus (Acute) Diabetic polyneuropathy (Acute) Hypertension (Chronic) Hyperlipidemia (Acute) Coronary artery disease (Acute) Insomnia (Acute) Anxiety (Acute) Hypothyroidism (Acute) Heart failure with preserved ejection fraction (Acute) Chronic obstructive pulmonary disease (Chronic) Vitamin D deficiency (Acute) Depression (Acute) Atrial fibrillation with rapid ventricular response (Acute) Acute respiratory failure with hypoxia (Acute) Cellulitis of left foot (Acute) Anemia (Acute) Debility (Acute) Dry gangrene (Acute) Gangrenous toe (Acute) Vital Signs Temp Pulse Resp BP Pulse Ox O2 Del Method O2 Flow Rate 98.8 F 105 H 16 153/59 H 96 Nasal Cannula 3 10/24/21 14:00 10/24/21 14:00 10/24/21 14:00 10/24/21 14:00 10/24/21 14:00 10/24/21 14:00 10/24/21 14:00 Oxygen Flow Rate (L/min) 3 Oxygen Delivery Method Nasal Cannula Weight: 109.044 kg Body Mass Index (BMI) 40.9 Sodium 143 mmol/L (136-145) 10/23/21 06:00 Potassium 4.0 mmol/L (3.5-5.1) 10/23/21 06:00 Chloride 108 mmol/L (98-107) H 10/23/21 06:00 Carbon Dioxide 30.0 mmol/L (21.0-32.0) 10/23/21 06:00 Anion Gap 5 (5-15) 10/23/21 06:00 BUN 43 mg/dL (7-18) H 10/23/21 06:00 Creatinine 1.21 mg/dL (0.55-1.02) H 10/23/21 06:00 Est GFR (MDRD) Af Amer 57 mL/min (>60) L 10/23/21 06:00 Est GFR (MDRD) Non-Af 47 mL/min (>60) L 10/23/21 06:00 BUN/Creatinine Ratio 35.5 RATIO (10-20) H 10/23/21 06:00 Glucose 274 mg/dL (74-106) H 10/23/21 06:00 Assessment/Plan: 1. Pain - Tylenol 1000mg q8h prn pain (1-3), Oxycodone 10mg q4h prn pain (4-10). Resident has received 2 tablets of acetaminophen for a pain score of 7 for foot area. Resident has received 4 tablets of oxycodone for pain scores of 6 and 7 for foot area. Post med pain score ranging from 4-9. Please continue to monitor for increased pain, PRN usage, constipation, and respiratory depression. Should the patient continue to report pains higher than pre-medication, may consider increasing the frequency of PRN medications, changing to a more potent opioid to help with pain, or adding an agent for breakthrough pain. Last documented bowel movement 10/23/21 2. Bowel - senna/colace 2 tablets bid, Dulcolax 10mg po daily prn. Please continue to monitor for constipation and PRN usage. Last documented bowel movement 10/23/21. Resident has not used dulcolax yet.? 3. Left foot cellulitis status post left hallux amputation - Keflex 500mg q8h thru 10/24/2021. Please continue to monitor for S/S of infection, nausea/vomiting, and diarrhea? 4. Hypertension/CAD/CHF - Coreg 6.25mg bid, Amlodipine 10mg daily, Aspirin 81mg daily, Furosemide 80mg daily. Please continue to monitor BP (last 141/72), HR (last 95), S/S of bleeding, hemoglobin (last 9.3g/dL), sodium (last 143mmol/L), potassium (last 4.0mmol/L), salt intake, and I/O. 5. Hyperlipidemia - Atorvastatin 80mg qhs. Please continue to monitor lipid panel (last 07/06/21) and muscle pain.? 6. Diabetes Mellitus II - Glargine 45 units qhs, Lispro 15 units QACHS. Please continue to monitor glucose (last 274mg/dL), S/S of hypoglycemia, A1c (last 10/20/21 5.8%). 7. Allergic rhinitis - Singulair 10mg daily, Flonase 1 spray nasal daily prn. Please continue to monitor for PRN usage, and S/S of allergies. Flonase has not been used yet? 8. COPD - Breo 1 puff daily, Duoneb 3ml bid prn, prednisone 40mg daily thru 10/24/2021. Please continue to monitor for shortness of breath, and wheezing? 9. Hypothyroidism - Levothyroxine 88mcg daily. Please continue to monitor TSH (last 04/06/21 2.79) and for S/S of hypo/hyperthyroidism.? 10. GERD - Pantoprazole 40mg bid. Please continue to monitor for S/S of GERD and diarrhea. May also encourage non-pharmacologic treatments to help minimize GERD flare-ups. 11. Insomnia - Trazodone 100mg qhs. Please continue to monitor patient sleeping habits, BP (141/72), and HR (95)? 12. Vitamin D deficiency: Vitamin d3 50 mcg PO daily. Please continue to monitor vitamin D level (none on file)? Assessment/Plan for indications treated with psychotropic medications: 1. Depression - Wellbutrin XL 300mg qhs, Paroxetine 60mg qhs. Please continue to monitor BP (141/72), and HR (95). Please consider a GDR by 03/2022 if clinically indicated 2. Diabetic polyneuropathy - Gabapentin 300mg tid. Based on CrCl of 56.9mL/min, the recommended dose of gabapentin is 400-1400mg/day. Please consider a GDR by 03/2022 if clinically indicated, thank you. Please continue to monitor for confusion and renal function. 3. 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 Please evaluate if this medication can be given on a PRN basis, rather than scheduled d/t increased risk of ADRs, falls,etc. thank you Medical chart and medication regimen reviewed. The following medication irregularities or issues were identified: 1. 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 Please evaluate if this medication can be given on a PRN basis, rather than scheduled d/t increased risk of ADRs, falls,etc. thank you 2. Pain - The resident has reported post-medication pain levels higher than pre-medication levels (pre-med score 6-7, post medication scores 4-9). Should the patient continue to report pains higher than pre-medication, may consider increasing the frequency of PRN medications, changing to a more potent opioid to help with pain, or adding an agent for breakthrough pain, thank you. 3. Vitamin d3 50 mcg PO daily: Please consider having a vitamin D level drawn as there is none on file for the resident Date of Note:: 10/24/21
--- NOTE | 2021-10-24 16:19 | CHAPLAIN ---
Type of Pastoral Visit _x__ Initial Visit ___ Follow-up Visit ___ On-call Visit ___ General Patient Visit ___ Spiritual Assessment ___ Family Conference ___ Bereavement ___ Rapid Response ___ Code Blue ___ Other (describe below) Pastoral Care Referral From _x__ Patient ___ Family ___ Nurse ___ Physician ___ In Flight Refueling System Repairer ___ Flea Market Seller ___ Other (describe below) Sacrament/Intervention _x__ Active listening ___ Anointing ___ Advent ___ Bereavement ___ Communion _x__ Charo exploration ___ _x__ Life review _x__ Prayer ___ Reconciliation ___ Sacrament of Sick _x__ Supportive presence ___ Wedding ___ Other (describe below) Pastoral Comments patient is talkative and expresses acceptance of her surgery to remove toe; pt has small family for support; pt concern is her living situation and has hopes someday I can make a move to something better; pt expresses her charo in God but is not connected to a local charo group; pt welcomes prayer and spiritual care
[2021-10-24 16:50] LABS: Bedside Glucose 174 mg/dL (74-106)
--- NOTE | 2021-10-24 18:51 | PCM.CONS.GEN ---
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 Site was inspected, sutures are intact to the left hallux amputation stump site. No signs of infection. At this point in time her amputation stump site looks well in terms of healing progress and there is no evidence of necrotic tissue. Stump site appropriately responds to capillary fill and appears healthy and pink in color. Dressings changed consisted of Betadine soaked Adaptic, 4 x 4 gauze, ABD, Kerlix, and an Kenny wrap rolled onto the foot. Left heel painted with Betadine and dressed with Adaptic 4 x 4 gauze and an ABD and Kerlix. Surgery 10/21/2021: Secondary to her dry gangrene there was also a portion of exposed bone/joint capsule of the proximal phalanx head secondary to amount of tissue at the left hallux, tissue and bone were cultured and sent to micro & pathology. Surgical cultures 10/21/2021: Tissue culture left hallux demonstrates Proteus Mirabilis. Bone culture left hallux demonstrates Proteus Mirabilis. Last WBC was trending down 11.8 on 10/23/2021. Will continue to evaluate. Currently on IV ceftriaxone Nursing may change dressings daily. May apply Santyl to the left heel daily. Patient may be partial weightbearing to the left heel in a surgical shoe for therapy sessions and bathroom privileges. She may continue her current pain management of oxyir as needed. She is elevate the left foot at all times of rest to control postoperative edema I will continue to follow while in house for continued postsurgical care. At the time of discharge she is recommended to follow-up with me in the wound care center for her left heel ulcer. Noah No Jr. D.P.M. Foot and ankle Center [facility] [phone] Note: [employer] speech recognition match marker software was used to create portions of this document. Sound-alike and misspelled words, as well as other match marker errors may be contained in the documentation. HPI Consult Data Date of Consult: 10/24/21 HPI Narrative Reason for Consultation: Continued postoperative care HPI Narrative: SONA WILSON, is a 66 F who presents to the transitional care unit by way of [facility]. She is admitted to TCU for continued medical management, rehabilitation and to increase strength prior to being discharged home. She is consulted to podiatry for continued postoperative care status post left hallux amputation, DOS 10/21/2021. She reports that she is feeling well following her surgery. She denies any constitutional symptoms. She has no further complaints. [facility] Medical History (Updated 10/24/21 @ 22:[address] Noah No, DPM) Acute cervical myofascial strain Acute on chronic respiratory failure with hypoxemia Asthma Atherosclerotic heart disease of [place] coronary artery without angina pectoris Chronic heart failure with preserved ejection fraction (HFpEF) Chronic ulcer of great toe of left foot Closed head injury Congestive heart failure (CHF) COPD (chronic obstructive pulmonary disease) Decubitus ulcer of left heel, stage 3 Decubitus ulcer, heel, left, unstageable Depression Diabetes type 2, controlled Diverticulitis Essential hypertension Former smoker History of amputation of left great toe History of non-ST elevation myocardial infarction (NSTEMI) (02/24/17) Hyperlipidemia Hypothyroid Myocardial infarct Non-rheumatic tricuspid valve insufficiency Nonrheumatic mitral (valve) insufficiency Obesity Obstructive sleep apnea On home O2 Secondary pulmonary arterial hypertension Type 2 diabetes mellitus Home Medications bupropion HCl 300 mg 24 hr tablet, extended release 300 mg PO QHS depression 09/02/20 [History Last Taken 10/13/21] cholecalciferol (vitamin D3) 50 mcg (2,000 unit) capsule (Vitamin D3) 50 mcg PO DAILY supplement 09/02/20 [History Last Taken 10/14/21 09:30] fluticasone furoate 100 mcg-vilanterol 25 mcg/dose inhalation powder (Breo Ellipta) 1 inh inhalation DAILY breathing 09/02/20 [History Last Taken 10/14/21] fluticasone propionate 50 mcg/actuation nasal spray,suspension 1 spray intranasal DAILY PRN Allergies 09/02/20 [History Last Taken 09/02/20] furosemide 80 mg tablet 80 mg PO DAILY water pill 09/02/20 [History Last Taken 10/14/21] levothyroxine 88 mcg tablet 88 mcg PO DAILY thyroid 09/02/20 [History Last Taken 10/14/21] lorazepam 1 mg tablet 1 mg PO QHS anxiety 09/02/20 [History Last Taken 10/13/21] montelukast 10 mg tablet 10 mg PO DAILY allergies 09/02/20 [History Last Taken 10/14/21] trazodone 100 mg tablet 100 mg PO QHS sleep 09/02/20 [History Last Taken 10/13/21] aspirin 81 mg tablet,delayed release (Adult Aspirin Regimen) 81 mg PO DAILY heart 05/17/21 [History Last Taken 10/14/21 09:30] amlodipine 10 mg tablet 10 mg PO DAILY bp 08/25/21 [History Last Taken 10/14/21 09:30] gabapentin 100 mg capsule (Neurontin) 100 mg PO TID nerve pain 08/25/21 [History Last Taken 10/14/21] dulaglutide 0.75 mg/0.5 mL subcutaneous pen injector (Trulicity) 0.75 mg subcut QWEEK dm 09/02/21 [History Last Taken 10/10/21] insulin detemir U-100 100 unit/mL (3 mL) subcutaneous pen 37 unit subcut QHS blood sugar 09/02/21 [History Last Taken 10/13/21] insulin lispro 100 unit/mL subcutaneous pen See Protocol subcut QACHS blood sugar 09/02/21 [History Last Taken 10/14/21] ipratropium 0.5 mg-albuterol 3 mg (2.5 mg base)/3 mL nebulization soln 3 ml inhalation BID PRN sob 09/02/21 [History Last Taken Unknown] paroxetine HCl 30 mg tablet 60 mg PO QHS mental health 09/02/21 [History Last Taken 10/13/21] hydrocodone-acetaminophen 5-325mg 5mg-325mg 1 tab PO Q6H PRN pain 3 days #12 tabs 10/02/21 [Rx Last Taken 10/14/21] atorvastatin 80 mg tablet 80 mg PO QHS Cholestrol 10/22/21 [History Last Taken Unknown] carvedilol 6.25 mg tablet 6.25 mg PO BID BP 10/22/21 [History Last Taken Unknown] cephalexin 500 mg capsule 500 mg PO Q8 Antibiotic 10/22/21 [History Last Taken Unknown] nystatin 100,000 unit/mL oral suspension 500,000 unit PO 4X/DAY Thrush 10/22/21 [History Last Taken Unknown] pantoprazole 40 mg tablet,delayed release 40 mg PO BID GERD 10/22/21 [History Last Taken Unknown] prednisone 20 mg tablet 40 mg PO BREAKFAST Steroid 10/22/21 [History Last Taken Unknown] Allergy/AdvReac Type Severity Reaction Status Date / Time Sulfa (Sulfonamide Allergy Anaphylaxis Verified 10/14/21 10:12 Antibiotics) sulfur dioxide Allergy Anaphylaxis Verified 10/14/21 10:12 Family History Grandmother Diabetes Mother Heart disease Surgical History H/O right heart catheterization History of cataract surgery History of coronary artery stent placement (02/24/17) Tubal ligation status Social History (Updated 10/22/21 @ 17:[address] Umer Deleon MD) household members: none housing: other details: [facility]. Smoking Status: Former smoker how long ago did patient quit smokin alcohol intake: former year quit: 1999 substance use type: does not use caffeine: Yes Type: carbonated beverages and tea ROS Constitutional Constitutional: Denies body ache(s), chills, fever(s) or weakness Eyes Eyes: Denies diplopia, dry eyes or loss of vision ENT HEENT: Denies dysphagia, nasal discharge, nasal obstruction or sore throat Cardiovascular Cardiovascular: Denies chest pain, chest pain at rest, claudication or lightheadedness Respiratory/Chest Respiratory/Chest: Denies cough, dyspnea or hemoptysis Gastrointestinal Gastrointestinal: Denies constipation, diarrhea, nausea or vomiting Genitourinary Genitourinary: Denies dysuria, urinary frequency, urinary hesitancy, urinary incontinence or urinary urgency Musculoskeletal Musculoskeletal: Denies joint pain, joint stiffness or joint swelling Integumentary Integumentary: Denies lesions, pruritus or rash Neurologic Neurologic: Denies confusion, numbness or seizures Psychiatric Psychiatric: Reports anxiety and depression Endocrine Endocrinology: Denies cold intolerance, heat intolerance, polydipsia or polyphagia Hematologic/Lymphatic Hematologic/Lymphatic: Reports easy bleeding and easy bruising; Denies lymphadenopathy Physical Exam Const alert, oriented x3 and no apparent distress General Appearance: cooperative and comfortable HEENT normocephalic Eyes General Eye: normal appearance of both eyes Neck General: normal visual inspection Lymph Lymphatic: no lymphadenopathy noted and no lymphedema noted Resp normal respiratory effort Cardio regular rate and regular rhythm Extremity normal capillary refill and no calf tenderness Skin no rashes or lesions noted, skin turgor normal and no jaundice Skin Narrative: Left foot: Mild nonpitting postsurgical edema to the left foot. Sutures intact at left hallux amputation stump site. No erythema, no purulent drainage, no malodor, no palpable fluctuance, or other localized signs of infection. Wound Narrative: Left foot: Left heel stage II decubitus ulceration noted to the posterior aspect of the heel. Site demonstrates stable eschar covering with no localized erythema,no purulent drainage, no malodor, no palpable fluctuance, or other localized signs of infection. Neuro oriented x3 and moves all extremities Lab / Micro Data Result Diagrams: 10/23/21 06:00 10/23/21 06:00 Labs: Laboratory Results - last 24 hr 10/23/21 20:48: POC Glucose 347 H 10/24/21 06:17: POC Glucose 244 H 10/24/21 11:08: POC Glucose 182 H 10/24/21 16:21: POC Glucose 174 H
[2021-10-24 21:31] LABS: Bedside Glucose 184 mg/dL (74-106)
[2021-10-24] MEDS: buPROPion (XL) 300 MG TABLET.XL PO (22:19)
[2021-10-24] MEDS: LORazepam 1 MG Tablet PO (22:19)
[2021-10-24] MEDS: Paroxetine 20 MG Tablet 60 MG PO (22:19)
[2021-10-24] MEDS: Atorvastatin Calcium 80 MG Tablet PO (22:20)
[2021-10-24] MEDS: traZODone 100 MG Tablet PO (22:20)
[2021-10-24] MEDS: Insulin Glargine-YFGN 100 UNIT/ML Pen 45 UNIT SC (22:21)
[2021-10-25] MEDS: amLODIPine 10 MG Tablet PO (05:25)
[2021-10-25] MEDS: NYSTATIN 500,000 UNIT/5 ML UDC 500000 UNIT PO ×4 (05:25→22:53)
[2021-10-25] MEDS: Cholecalciferol (VIT D3) 25 MCG TABLET (1,000 UNITS) 50 MCG PO (05:25)
[2021-10-25] MEDS: Levothyroxine 88 MCG Tablet PO (05:25)
[2021-10-25] MEDS: Fluticasone/Salmeterol 232-14 Inhaler 1 PUFF INHALATION ×2 (05:25→16:54)
[2021-10-25] MEDS: Montelukast 10 MG Tablet PO (05:25)
[2021-10-25] MEDS: Pantoprazole Sodium 40 MG Tablet PO ×2 (05:25→16:54)
[2021-10-25] MEDS: Gabapentin 300 MG Capsule PO ×3 (05:25→22:54)
[2021-10-25] MEDS: Furosemide 80 MG Tablet PO (05:25)
[2021-10-25] MEDS: Carvedilol 6.25 MG Tablet PO ×2 (05:25→16:53)
[2021-10-25] MEDS: Senna/Docusate Sodium 1 Tablet 2 TABLET PO ×2 (05:25→16:55)
[2021-10-25] MEDS: Menthol/Lanolin/Calamine/Znox 113 GM Tube 1 APPLIC TOPICAL ×2 (05:26→16:53)
[2021-10-25] MEDS: Nystatin Powder 15gm Bottle 1 APPLIC TOPICAL ×2 (05:26→16:54)
[2021-10-25 05:50] LABS: Absolute Lymphocyte Count 1.13 X10^3/uL (0.83-4.51); Absolute Neutrophil Count 8.6 X10^3/uL (2.0-7.7); Basophil# 0.01 X10^3/uL; Basophil% 0.1 % (0-1); Eosinophils% 1.9 % (0-5); Hematocrit 29.6 % (37-47); Hemoglobin 9.1 g/dL (12.0-15.0); Lymphocyte # 1.13 X10^3/ul (0.83-4.51); Lymphocyte % 10.5 % (19-41); Mean Corp Hgb Conc 30.7 g/dL (32-36); Mean Corpuscular Hgb 28.6 pg (27.0-32.0); Mean Corpuscular Volume 93.1 fL (81-99); Mean Platelet Vol. 12.6 fl (6.2-12.0); Monocyte# 0.72 X10^3/uL; Monocyte% 6.7 % (0-10); NRBC Flagged by Analyzer 0 % (0-5); Neutrophil # 8.64 X10^3/uL (2.7-7.7); Neutrophil % 80.2 % (47-70); Platelet Count 107 K/mm3 (150-450); RBC Distribution Width CV 15.1 % (11.6-14.6); RBC Distribution Width SD 51.7 fl (35.1-43.9); Red Blood Count 3.18 M/mm3 (4.2-5.4); White Blood Count 10.8 K/mm3 (4.4-11.0)
[2021-10-25 06:24] LABS: Anion Gap 2 (5-15); BUN 38 mg/dL (7-18); BUN/Creat Ratio 32.5 RATIO (10-20); Calcium,Total 8.8 mg/dL (8.5-10.1); Chloride 108 mmol/L (98-107); Creatinine, Serum 1.17 mg/dL (0.55-1.02); EST Glomerular Filtration Rate 49 mL/min (>60); Est Glom Filt Rate - Afr Amer 60 mL/min (>60); Glucose 184 mg/dL (74-106); Potassium 3.7 mmol/L (3.5-5.1); Sodium Level 143 mmol/L (136-145)
[2021-10-25 06:26] LABS: Bedside Glucose 182 mg/dL (74-106)
[2021-10-25 07:37] VITALS: O2SAT 100
[2021-10-25] MEDS: Juven (unflavored) Packet 1 PACKET PO ×2 (08:04→16:53)
[2021-10-25] MEDS: Insulin Lispro 100 UNIT/ML INSULN.PEN 15 UNIT SC ×4 (08:04→22:56)
[2021-10-25] MEDS: Aspirin E.C. 81 MG Tablet PO (08:04)
[2021-10-25] MEDS: oxyCODONE 5 MG Tablet 10 MG PO ×3 (08:09→19:53)
[2021-10-25 11:40] LABS: Bedside Glucose 141 mg/dL (74-106)
[2021-10-25 14:00] VITALS: BP 153/83; PULSE 100; RESP 20; TEMP 37.3; O2SAT 100
--- NOTE | 2021-10-25 15:34 | NURSING ---
Family notified of covid positive staff member
[2021-10-25 16:50] LABS: Bedside Glucose 133 mg/dL (74-106)
[2021-10-25 21:31] LABS: Bedside Glucose 213 mg/dL (74-106)
[2021-10-25] MEDS: buPROPion (XL) 300 MG TABLET.XL PO (22:53)
[2021-10-25] MEDS: Atorvastatin Calcium 80 MG Tablet PO (22:53)
[2021-10-25] MEDS: traZODone 100 MG Tablet PO (22:54)
[2021-10-25] MEDS: LORazepam 1 MG Tablet PO (22:54)
[2021-10-25] MEDS: Paroxetine 20 MG Tablet 60 MG PO (22:54)
[2021-10-25] MEDS: Insulin Glargine-YFGN 100 UNIT/ML Pen 45 UNIT SC (22:55)
[2021-10-26 06:32] VITALS: BP 145/73; PULSE 106
[2021-10-26] MEDS: Cholecalciferol (VIT D3) 25 MCG TABLET (1,000 UNITS) 50 MCG PO (06:34)
[2021-10-26] MEDS: amLODIPine 10 MG Tablet PO (06:34)
[2021-10-26] MEDS: Carvedilol 6.25 MG Tablet PO ×2 (06:34→16:56)
[2021-10-26] MEDS: Montelukast 10 MG Tablet PO (06:34)
[2021-10-26] MEDS: Furosemide 80 MG Tablet PO (06:34)
[2021-10-26] MEDS: Pantoprazole Sodium 40 MG Tablet PO ×2 (06:34→18:29)
[2021-10-26] MEDS: Senna/Docusate Sodium 1 Tablet 2 TABLET PO ×2 (06:34→16:55)
[2021-10-26 06:35] LABS: Bedside Glucose 137 mg/dL (74-106)
[2021-10-26] MEDS: Fluticasone/Salmeterol 232-14 Inhaler 1 PUFF INHALATION ×2 (06:35→16:59)
[2021-10-26] MEDS: Levothyroxine 88 MCG Tablet PO (06:35)
[2021-10-26] MEDS: NYSTATIN 500,000 UNIT/5 ML UDC 500000 UNIT PO ×4 (06:35→21:14)
[2021-10-26] MEDS: Menthol/Lanolin/Calamine/Znox 113 GM Tube 1 APPLIC TOPICAL ×2 (06:35→16:56)
[2021-10-26] MEDS: Nystatin Powder 15gm Bottle 1 APPLIC TOPICAL ×2 (06:36→16:56)
[2021-10-26] MEDS: Gabapentin 300 MG Capsule PO ×3 (06:38→21:18)
[2021-10-26] MEDS: Insulin Lispro 100 UNIT/ML INSULN.PEN 15 UNIT SC ×4 (08:08→21:09)
[2021-10-26] MEDS: Aspirin E.C. 81 MG Tablet PO (08:08)
[2021-10-26] MEDS: Juven (unflavored) Packet 1 PACKET PO ×2 (08:08→16:54)
[2021-10-26 11:11] LABS: Bedside Glucose 200 mg/dL (74-106)
--- NOTE | 2021-10-26 11:27 | CASEMGMT ---
Addendum entered by Graciela Trivedi 10/26/21 12:31: [facility] can accept pt in SNF until [place] beds become available. SW to follow up with pt on response. Original Note: Social Work IDT met with patient for care plan meeting. Discussed patient's progress in PT/OT/SN. Explained [facility] insurance with NRD 11/02 and EDC 11/10; continued stay is not guaranteed with each review. Pt remains agreeable to referral to [facility], instead of returning to [facility]. SW agreed to make referral. Pt appreciative. SW to continue to follow. SW made referral to [facility] via [facility]. Graciela Trivedi, SEWING MACHINE OPERATOR [employer] NEUROPSYCHOLOGY MEDICAL CONSULTANT
[2021-10-26] MEDS: oxyCODONE 5 MG Tablet 10 MG PO ×3 (12:57→21:11)
[2021-10-26] MEDS: Collagenase 30gm Tube 1 APPLIC TOPICAL (13:00)
[2021-10-26 14:00] VITALS: BP 145/80; PULSE 106; RESP 19; TEMP 36.8; O2SAT 96
--- NOTE | 2021-10-26 14:08 | WOUNDNOTE ---
wound photo: left foot
--- NOTE | 2021-10-26 14:09 | WOUNDNOTE ---
wound photo: left heel
[2021-10-26 16:11] LABS: Bedside Glucose 149 mg/dL (74-106)
[2021-10-26] MEDS: Acetaminophen 500 MG Tablet 1000 MG PO (17:05)
[2021-10-26 21:00] VITALS: O2SAT 94
[2021-10-26] MEDS: Insulin Glargine-YFGN 100 UNIT/ML Pen 45 UNIT SC (21:07)
[2021-10-26] MEDS: Paroxetine 20 MG Tablet 60 MG PO (21:12)
[2021-10-26] MEDS: Atorvastatin Calcium 80 MG Tablet PO (21:13)
[2021-10-26] MEDS: traZODone 100 MG Tablet PO (21:14)
[2021-10-26] MEDS: buPROPion (XL) 300 MG TABLET.XL PO (21:14)
[2021-10-26] MEDS: LORazepam 1 MG Tablet PO (21:18)
[2021-10-26 21:41] LABS: Bedside Glucose 196 mg/dL (74-106)
[2021-10-27] MEDS: Fluticasone/Salmeterol 232-14 Inhaler 1 PUFF INHALATION ×2 (05:33→17:08)
[2021-10-27] MEDS: oxyCODONE 5 MG Tablet 10 MG PO ×3 (05:34→18:48)
[2021-10-27] MEDS: Senna/Docusate Sodium 1 Tablet 2 TABLET PO ×2 (05:55→17:09)
[2021-10-27] MEDS: Cholecalciferol (VIT D3) 25 MCG TABLET (1,000 UNITS) 50 MCG PO (05:55)
[2021-10-27] MEDS: Montelukast 10 MG Tablet PO (05:56)
[2021-10-27] MEDS: Levothyroxine 88 MCG Tablet PO (05:57)
[2021-10-27] MEDS: Acetaminophen 500 MG Tablet 1000 MG PO ×2 (05:58→18:48)
[2021-10-27] MEDS: Gabapentin 300 MG Capsule PO ×3 (05:59→21:21)
[2021-10-27] MEDS: Furosemide 80 MG Tablet PO (05:59)
[2021-10-27] MEDS: amLODIPine 10 MG Tablet PO (05:59)
[2021-10-27] MEDS: NYSTATIN 500,000 UNIT/5 ML UDC 500000 UNIT PO ×4 (06:00→21:09)
[2021-10-27] MEDS: Pantoprazole Sodium 40 MG Tablet PO ×2 (06:00→17:07)
[2021-10-27] MEDS: Carvedilol 6.25 MG Tablet PO ×2 (06:00→17:07)
[2021-10-27] MEDS: Menthol/Lanolin/Calamine/Znox 113 GM Tube 1 APPLIC TOPICAL ×2 (06:01→17:07)
[2021-10-27] MEDS: Nystatin Powder 15gm Bottle 1 APPLIC TOPICAL ×2 (06:02→17:08)
[2021-10-27 06:30] LABS: Bedside Glucose 156 mg/dL (74-106)
[2021-10-27] MEDS: Aspirin E.C. 81 MG Tablet PO (08:00)
[2021-10-27] MEDS: Insulin Lispro 100 UNIT/ML INSULN.PEN 15 UNIT SC ×4 (08:00→21:10)
[2021-10-27] MEDS: Juven (unflavored) Packet 1 PACKET PO ×2 (08:01→17:07)
[2021-10-27 11:11] LABS: Bedside Glucose 199 mg/dL (74-106)
[2021-10-27 14:00] VITALS: BP 113/74; PULSE 99; RESP 21; TEMP 36.3; O2SAT 96
[2021-10-27] MEDS: Collagenase 30gm Tube 1 APPLIC TOPICAL (15:30)
--- NOTE | 2021-10-27 15:49 | PN_ITS ---
Subjective Subjective Patient is a 66-year-old female who is seen resting bedside with feet elevated today s/p left hallux amputation secondary to dry gangrene and osteomyelitis. She states that she is feeling very good today and is participating in rehabilitation to build her strength prior to being discharged home. She denies any constitutional symptoms today. She denies any further complaints today. Objective Data Objective Data Vital Signs: Vital Signs Temp Pulse Resp BP Pulse Ox O2 Del Method O2 Flow Rate 97.3 F L 99 21 H 113/74 96 Nasal Cannula 3 10/27/21 14:00 10/27/21 14:00 10/27/21 14:00 10/27/21 14:00 10/27/21 14:00 10/27/21 14:00 10/27/21 14:00 Oxygen Flow Rate (L/min) 3 Oxygen Delivery Method Nasal Cannula Weight: 108.919 kg Body Mass Index (BMI) 40.9 Intake & Output: Intake and Output for Last 24 Hours 10/25/21 10/26/21 10/27/21 23:59 23:59 23:59 Intake Total 660 / 660 1020 / 1020 480 / 480 Output Total 300 / 300 Balance 660 / 660 720 / 720 480 / 480 Lab / Micro Data Result Diagrams: 10/25/21 05:12 10/25/21 05:12 Labs: Laboratory Results - last 24 hr 10/26/21 15:51: POC Glucose 149 H 10/26/21 21:07: POC Glucose 196 H 10/27/21 06:09: POC Glucose 156 H 10/27/21 10:48: POC Glucose 199 H Micro: Microbiology 10/27/21 07:00 Nasal Secretion SARS-CoV-2 Antigen (Rapid) - Final Physical Exam Const alert, oriented x3 and no apparent distress General Appearance: cooperative and comfortable HEENT normocephalic Eyes General Eye: normal appearance of both eyes Neck General: normal visual inspection Lymph Lymphatic: no lymphadenopathy noted and no lymphedema noted Resp normal respiratory effort Cardio regular rate and regular rhythm Extremity normal capillary refill and no calf tenderness Skin no rashes or lesions noted, skin turgor normal and no jaundice Skin Narrative: Left foot: Mild nonpitting postsurgical edema to the left foot. Sutures intact at left hallux amputation stump site. No erythema, no purulent drainage, no malodor, no palpable fluctuance, or other localized signs of infection. Wound Narrative: Left foot: Left heel stage II decubitus ulceration noted to the posterior aspect of the heel. Site demonstrates stable eschar covering with no localized erythema,no purulent drainage, no malodor, no palpable fluctuance, or other localized signs of infection. 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 Site was inspected, sutures are intact to the left hallux amputation stump site. No signs of infection. At this point in time her amputation stump site looks well in terms of healing progress and there is no evidence of necrotic tissue about the incision site. Stump site appropriately responds to capillary fill and appears healthy and pink in color. She does have a new spot of ecchymosis at the dorsomedial aspect of the first metatarsal head. I will continue to watch the site for any changes. Dressings changed consisted of Betadine soaked Adaptic, 4 x 4 gauze, ABD, Kerlix , and an Kenny wrap rolled onto the foot. Santyl applied to left heel and dressed with Adaptic 4 x 4 gauze and an ABD and Kerlix. Surgery 10/21/2021: Secondary to her dry gangrene there was also a portion of exposed bone/joint capsule of the proximal phalanx head secondary to amount of tissue at the left hallux, tissue and bone were cultured and sent to micro & pathology. Surgical cultures 10/21/2021: Tissue culture left hallux demonstrates Proteus Mirabilis. Bone culture left hallux demonstrates Proteus Mirabilis. Last WBC was trending down 10.8 and within normal limits on 10/24/2021. Will continue to evaluate. Currently on IV ceftriaxone Nursing may change dressings daily. May apply Santyl to the left heel daily. Patient may be partial weightbearing to the left heel in a surgical shoe for therapy sessions and bathroom privileges. She may continue her current pain management of oxyir as needed. She is elevate the left foot at all times of rest to control postoperative edema I will continue to follow while in house for continued postsurgical care. At the time of discharge she is recommended to follow-up with me in the wound care center for her left heel ulcer. Jr. Abelino Morgan.P.M. Foot and ankle Center [facility] [phone] Note: [employer] speech recognition balling head tender software was used to create portions of this document. Sound-alike and misspelled words, as well as other balling head tender errors may be contained in the documentation.
[2021-10-27 16:15] LABS: Bedside Glucose 222 mg/dL (74-106)
[2021-10-27] MEDS: buPROPion (XL) 300 MG TABLET.XL PO (21:09)
[2021-10-27] MEDS: Atorvastatin Calcium 80 MG Tablet PO (21:09)
[2021-10-27] MEDS: traZODone 100 MG Tablet PO (21:09)
[2021-10-27] MEDS: Paroxetine 20 MG Tablet 60 MG PO (21:09)
[2021-10-27] MEDS: Insulin Glargine-YFGN 100 UNIT/ML Pen 45 UNIT SC (21:10)
[2021-10-27] MEDS: LORazepam 1 MG Tablet PO (21:21)
[2021-10-27 21:24] VITALS: PULSE 101; O2SAT 97
[2021-10-27 21:25] LABS: Bedside Glucose 236 mg/dL (74-106)
[2021-10-28 06:40] LABS: Bedside Glucose 186 mg/dL (74-106)
[2021-10-28] MEDS: NYSTATIN 500,000 UNIT/5 ML UDC 500000 UNIT PO ×4 (06:40→22:19)
[2021-10-28] MEDS: amLODIPine 10 MG Tablet PO (06:40)
[2021-10-28] MEDS: Carvedilol 6.25 MG Tablet PO ×2 (06:40→17:12)
[2021-10-28] MEDS: Senna/Docusate Sodium 1 Tablet 2 TABLET PO ×2 (06:40→17:12)
[2021-10-28] MEDS: Pantoprazole Sodium 40 MG Tablet PO ×2 (06:40→17:12)
[2021-10-28] MEDS: Gabapentin 300 MG Capsule PO ×3 (06:40→22:20)
[2021-10-28] MEDS: Furosemide 80 MG Tablet PO (06:40)
[2021-10-28] MEDS: Levothyroxine 88 MCG Tablet PO (06:40)
[2021-10-28] MEDS: Montelukast 10 MG Tablet PO (06:40)
[2021-10-28] MEDS: Cholecalciferol (VIT D3) 25 MCG TABLET (1,000 UNITS) 50 MCG PO (06:40)
[2021-10-28] MEDS: Nystatin Powder 15gm Bottle 1 APPLIC TOPICAL ×2 (06:42→17:13)
[2021-10-28] MEDS: Menthol/Lanolin/Calamine/Znox 113 GM Tube 1 APPLIC TOPICAL ×2 (06:42→17:14)
[2021-10-28] MEDS: Fluticasone/Salmeterol 232-14 Inhaler 1 PUFF INHALATION ×2 (06:43→17:12)
[2021-10-28] MEDS: oxyCODONE 5 MG Tablet 10 MG PO ×3 (06:46→22:19)
[2021-10-28 06:48] VITALS: BP 145/64; PULSE 89
[2021-10-28 07:24] VITALS: O2SAT 98
[2021-10-28] MEDS: Juven (unflavored) Packet 1 PACKET PO ×2 (07:44→17:12)
[2021-10-28] MEDS: Aspirin E.C. 81 MG Tablet PO (07:44)
[2021-10-28] MEDS: Insulin Lispro 100 UNIT/ML INSULN.PEN 15 UNIT SC ×4 (07:44→22:20)
[2021-10-28 09:42] VITALS: PULSE 77; RESP 16; O2SAT 93
[2021-10-28] MEDS: Collagenase 30gm Tube 1 APPLIC TOPICAL (10:13)
[2021-10-28 11:15] LABS: Bedside Glucose 220 mg/dL (74-106)
--- NOTE | 2021-10-28 11:39 | MDS.RN ---
Pain interview for SANJEEV 10/29/21.
[2021-10-28] MEDS: Acetaminophen 500 MG Tablet 1000 MG PO (12:57)
[2021-10-28 14:00] VITALS: BP 151/64; PULSE 83; RESP 18; TEMP 36.8; O2SAT 94
--- NOTE | 2021-10-28 15:57 | CASEMGMT ---
Social Work BIMS (12/10) and PHQ-9 () completed for MDS assessment. Spoke with pt about [facility] able to accept in SNF until bed available in [place]. Pt agreeable. Updated [facility]. No DC date yet. NRD 11/02 Graciela Trivedi, DENTAL LABORATORY MANAGER LINE STAKER
[2021-10-28 16:55] LABS: Bedside Glucose 163 mg/dL (74-106)
[2021-10-28 21:41] LABS: Bedside Glucose 232 mg/dL (74-106)
[2021-10-28] MEDS: Paroxetine 20 MG Tablet 60 MG PO (22:19)
[2021-10-28] MEDS: Atorvastatin Calcium 80 MG Tablet PO (22:20)
[2021-10-28] MEDS: Insulin Glargine-YFGN 100 UNIT/ML Pen 45 UNIT SC (22:20)
[2021-10-28] MEDS: traZODone 100 MG Tablet PO (22:20)
[2021-10-28] MEDS: LORazepam 1 MG Tablet PO (22:20)
[2021-10-28] MEDS: buPROPion (XL) 300 MG TABLET.XL PO (22:20)
[2021-10-29] MEDS: Cholecalciferol (VIT D3) 25 MCG TABLET (1,000 UNITS) 50 MCG PO (06:24)
[2021-10-29] MEDS: Carvedilol 6.25 MG Tablet PO ×2 (06:24→17:32)
[2021-10-29] MEDS: Senna/Docusate Sodium 1 Tablet 2 TABLET PO ×2 (06:24→17:32)
[2021-10-29] MEDS: Levothyroxine 88 MCG Tablet PO (06:24)
[2021-10-29] MEDS: Montelukast 10 MG Tablet PO (06:24)
[2021-10-29] MEDS: Fluticasone/Salmeterol 232-14 Inhaler 1 PUFF INHALATION ×2 (06:24→17:29)
[2021-10-29] MEDS: Gabapentin 300 MG Capsule PO ×3 (06:24→21:37)
[2021-10-29] MEDS: oxyCODONE 5 MG Tablet 10 MG PO ×3 (06:24→17:58)
[2021-10-29] MEDS: Pantoprazole Sodium 40 MG Tablet PO ×2 (06:24→17:32)
[2021-10-29] MEDS: Furosemide 80 MG Tablet PO (06:24)
[2021-10-29] MEDS: amLODIPine 10 MG Tablet PO (06:24)
[2021-10-29] MEDS: NYSTATIN 500,000 UNIT/5 ML UDC 500000 UNIT PO ×4 (06:31→21:33)
[2021-10-29] MEDS: Menthol/Lanolin/Calamine/Znox 113 GM Tube 1 APPLIC TOPICAL ×2 (06:33→17:33)
[2021-10-29] MEDS: Nystatin Powder 15gm Bottle 1 APPLIC TOPICAL ×2 (06:33→17:32)
[2021-10-29 06:40] LABS: Bedside Glucose 137 mg/dL (74-106)
[2021-10-29 07:28] VITALS: O2SAT 93
[2021-10-29 07:29] VITALS: O2SAT 93
[2021-10-29] MEDS: Juven (unflavored) Packet 1 PACKET PO ×2 (08:17→17:30)
[2021-10-29] MEDS: Insulin Lispro 100 UNIT/ML INSULN.PEN 15 UNIT SC ×3 (08:17→17:32)
[2021-10-29] MEDS: Aspirin E.C. 81 MG Tablet PO (08:17)
[2021-10-29 11:10] LABS: Bedside Glucose 134 mg/dL (74-106)
[2021-10-29 14:00] VITALS: BP 141/65; PULSE 82; RESP 18; TEMP 36.9; O2SAT 92
[2021-10-29 19:15] LABS: Bedside Glucose 145 mg/dL (74-106)
[2021-10-29] MEDS: Collagenase 30gm Tube 1 APPLIC TOPICAL (19:45)
[2021-10-29] MEDS: LORazepam 1 MG Tablet PO (21:29)
[2021-10-29] MEDS: traZODone 100 MG Tablet PO (21:33)
[2021-10-29] MEDS: Paroxetine 20 MG Tablet 60 MG PO (21:33)
[2021-10-29] MEDS: buPROPion (XL) 300 MG TABLET.XL PO (21:33)
[2021-10-29] MEDS: Atorvastatin Calcium 80 MG Tablet PO (21:33)
[2021-10-29] MEDS: Insulin Glargine-YFGN 100 UNIT/ML Pen 45 UNIT SC (21:56)
--- NOTE | 2021-10-29 21:57 | NURSING ---
Notified of blood sugar of 83 as pt gets insulin at , ordered to hold Humalog and give 30units of Glargine. Pt states that is a great BS for her, asymptomatic, states she does feel extra tired this evening and states she didn't eat well today because she wasn't as hungry. Pt asked for Laura Doones and OJ for snack.
[2021-10-30] MEDS: Menthol/Lanolin/Calamine/Znox 113 GM Tube 1 APPLIC TOPICAL ×2 (04:58→16:55)
[2021-10-30] MEDS: oxyCODONE 5 MG Tablet 10 MG PO ×3 (04:59→22:02)
[2021-10-30] MEDS: Fluticasone/Salmeterol 232-14 Inhaler 1 PUFF INHALATION ×2 (04:59→16:51)
[2021-10-30] MEDS: Nystatin Powder 15gm Bottle 1 APPLIC TOPICAL ×2 (04:59→16:55)
[2021-10-30 05:00] VITALS: BP 135/64; PULSE 92
[2021-10-30] MEDS: NYSTATIN 500,000 UNIT/5 ML UDC 500000 UNIT PO ×4 (05:00→21:50)
[2021-10-30] MEDS: Furosemide 80 MG Tablet PO (05:00)
[2021-10-30] MEDS: amLODIPine 10 MG Tablet PO (05:00)
[2021-10-30] MEDS: Pantoprazole Sodium 40 MG Tablet PO ×2 (05:00→16:51)
[2021-10-30] MEDS: Senna/Docusate Sodium 1 Tablet 2 TABLET PO ×2 (05:00→16:51)
[2021-10-30] MEDS: Cholecalciferol (VIT D3) 25 MCG TABLET (1,000 UNITS) 50 MCG PO (05:00)
[2021-10-30] MEDS: Montelukast 10 MG Tablet PO (05:00)
[2021-10-30] MEDS: Levothyroxine 88 MCG Tablet PO (05:00)
[2021-10-30 07:10] VITALS: O2SAT 90
[2021-10-30 07:38] LABS: Absolute Neutrophil Count 6.7 X10^3/uL (2.0-7.7); Basophil# 0.04 X10^3/uL; Basophil% 0.5 % (0-1); Eosinophil# 0.16 X10^3/uL; Eosinophils% 1.9 % (0-5); Hematocrit 26.7 % (37-47); Lymphocyte % 8.3 % (19-41); Mean Corpuscular Hgb 28.4 pg (27.0-32.0); Mean Corpuscular Volume 94.7 fL (81-99); Monocyte# 0.74 X10^3/uL; Monocyte% 8.8 % (0-10); NRBC Flagged by Analyzer 0 % (0-5); Neutrophil # 6.74 X10^3/uL (2.7-7.7); Neutrophil % 79.9 % (47-70); Platelet Count 129 K/mm3 (150-450); RBC Distribution Width CV 15.6 % (11.6-14.6); RBC Distribution Width SD 53.8 fl (35.1-43.9); Red Blood Count 2.82 M/mm3 (4.2-5.4); White Blood Count 8.4 K/mm3 (4.4-11.0)
[2021-10-30 07:48] LABS: Anion Gap 5 (5-15); BUN 42 mg/dL (7-18); BUN/Creat Ratio 33.3 RATIO (10-20); Calcium,Total 9.1 mg/dL (8.5-10.1); Chloride 102 mmol/L (98-107); Creatinine, Serum 1.26 mg/dL (0.55-1.02); EST Glomerular Filtration Rate 45 mL/min (>60); Est Glom Filt Rate - Afr Amer 55 mL/min (>60); Estimated Creatinine Clearance 40.05 ml/min; Glucose 217 mg/dL (74-106); Potassium 3.8 mmol/L (3.5-5.1); Sodium Level 138 mmol/L (136-145)
[2021-10-30] MEDS: Aspirin E.C. 81 MG Tablet PO (08:05)
[2021-10-30] MEDS: Juven (unflavored) Packet 1 PACKET PO ×2 (08:05→17:41)
[2021-10-30] MEDS: Carvedilol 6.25 MG Tablet PO ×2 (08:06→16:51)
[2021-10-30] MEDS: Gabapentin 300 MG Capsule PO ×3 (08:06→16:52)
[2021-10-30] MEDS: Insulin Lispro 100 UNIT/ML INSULN.PEN 15 UNIT SC ×4 (08:10→21:52)
[2021-10-30] MEDS: Tuberculin,Purif.prot.deriv. 50 TU/ML Vial 0.1 ML ID (09:06)
[2021-10-30 10:00] VITALS: PULSE 82; RESP 18; O2SAT 91
[2021-10-30] MEDS: Acetaminophen 500 MG Tablet 1000 MG PO (10:12)
[2021-10-30] MEDS: Collagenase 30gm Tube 1 APPLIC TOPICAL (10:14)
[2021-10-30 11:25] LABS: Bedside Glucose 192 mg/dL (74-106)
[2021-10-30 11:25] LABS: Bedside Glucose 218 mg/dL (74-106)
[2021-10-30 14:00] VITALS: BP 125/55; PULSE 86; RESP 18; TEMP 36.4; O2SAT 90
[2021-10-30 16:40] LABS: Bedside Glucose 209 mg/dL (74-106)
[2021-10-30 21:40] LABS: Bedside Glucose 213 mg/dL (74-106)
[2021-10-30] MEDS: Atorvastatin Calcium 80 MG Tablet PO (21:48)
[2021-10-30] MEDS: LORazepam 1 MG Tablet PO (21:48)
[2021-10-30] MEDS: Paroxetine 20 MG Tablet 60 MG PO (21:49)
[2021-10-30] MEDS: traZODone 100 MG Tablet PO (21:49)
[2021-10-30] MEDS: buPROPion (XL) 300 MG TABLET.XL PO (21:49)
[2021-10-30] MEDS: Insulin Glargine-YFGN 100 UNIT/ML Pen 45 UNIT SC (21:53)
[2021-10-31] MEDS: Nystatin Powder 15gm Bottle 1 APPLIC TOPICAL ×2 (06:24→17:16)
[2021-10-31] MEDS: Menthol/Lanolin/Calamine/Znox 113 GM Tube 1 APPLIC TOPICAL ×2 (06:24→17:16)
[2021-10-31] MEDS: Fluticasone/Salmeterol 232-14 Inhaler 1 PUFF INHALATION ×2 (06:25→17:13)
[2021-10-31 06:26] LABS: Bedside Glucose 138 mg/dL (74-106)
[2021-10-31] MEDS: Senna/Docusate Sodium 1 Tablet 2 TABLET PO ×2 (06:29→17:15)
[2021-10-31] MEDS: Montelukast 10 MG Tablet PO (06:29)
[2021-10-31] MEDS: Cholecalciferol (VIT D3) 25 MCG TABLET (1,000 UNITS) 50 MCG PO (06:29)
[2021-10-31] MEDS: Levothyroxine 88 MCG Tablet PO (06:29)
[2021-10-31] MEDS: amLODIPine 10 MG Tablet PO (06:29)
[2021-10-31] MEDS: NYSTATIN 500,000 UNIT/5 ML UDC 500000 UNIT PO ×4 (06:30→21:57)
[2021-10-31] MEDS: Pantoprazole Sodium 40 MG Tablet PO ×2 (06:30→17:15)
[2021-10-31] MEDS: Furosemide 80 MG Tablet PO (06:30)
[2021-10-31] MEDS: Insulin Lispro 100 UNIT/ML INSULN.PEN 15 UNIT SC ×4 (08:28→21:56)
[2021-10-31] MEDS: Juven (unflavored) Packet 1 PACKET PO ×2 (08:36→17:15)
[2021-10-31] MEDS: oxyCODONE 5 MG Tablet 10 MG PO (08:36)
[2021-10-31] MEDS: Carvedilol 6.25 MG Tablet PO ×2 (08:36→17:15)
[2021-10-31] MEDS: Aspirin E.C. 81 MG Tablet PO (08:37)
[2021-10-31] MEDS: Gabapentin 300 MG Capsule PO ×3 (08:37→17:15)
[2021-10-31] MEDS: Collagenase 30gm Tube 1 APPLIC TOPICAL (10:14)
[2021-10-31 11:26] LABS: Bedside Glucose 205 mg/dL (74-106)
[2021-10-31 14:00] VITALS: BP 127/63; PULSE 79; RESP 20; TEMP 37.1; O2SAT 90
[2021-10-31 16:31] LABS: Bedside Glucose 241 mg/dL (74-106)
[2021-10-31 21:41] LABS: Bedside Glucose 219 mg/dL (74-106)
[2021-10-31] MEDS: traZODone 100 MG Tablet PO (21:50)
[2021-10-31] MEDS: buPROPion (XL) 300 MG TABLET.XL PO (21:51)
[2021-10-31] MEDS: Atorvastatin Calcium 80 MG Tablet PO (21:51)
[2021-10-31] MEDS: Paroxetine 20 MG Tablet 60 MG PO (21:51)
[2021-10-31] MEDS: Insulin Glargine-YFGN 100 UNIT/ML Pen 45 UNIT SC (21:53)
[2021-10-31] MEDS: LORazepam 1 MG Tablet PO (21:53)
[2021-11-01] VITALS (16 sets, daily range): BP systolic 129–155; BP diastolic 59–78; PULSE 68–88; RESP 14–19; TEMP 36.2–37; O2SAT 84–97
[2021-11-01] MEDS: Menthol/Lanolin/Calamine/Znox 113 GM Tube 1 APPLIC TOPICAL ×2 (05:42→17:42)
[2021-11-01] MEDS: Fluticasone/Salmeterol 232-14 Inhaler 1 PUFF INHALATION ×2 (05:42→17:43)
[2021-11-01] MEDS: Senna/Docusate Sodium 1 Tablet 2 TABLET PO ×2 (05:43→17:43)
[2021-11-01] MEDS: NYSTATIN 500,000 UNIT/5 ML UDC 500000 UNIT PO ×3 (05:43→17:41)
[2021-11-01] MEDS: Pantoprazole Sodium 40 MG Tablet PO ×2 (05:43→17:43)
[2021-11-01] MEDS: amLODIPine 10 MG Tablet PO (05:43)
[2021-11-01] MEDS: Furosemide 80 MG Tablet PO (05:43)
[2021-11-01] MEDS: Nystatin Powder 15gm Bottle 1 APPLIC TOPICAL ×2 (05:44→17:41)
[2021-11-01] MEDS: Cholecalciferol (VIT D3) 25 MCG TABLET (1,000 UNITS) 50 MCG PO (05:44)
[2021-11-01] MEDS: Levothyroxine 88 MCG Tablet PO (05:44)
[2021-11-01] MEDS: Montelukast 10 MG Tablet PO (05:44)
[2021-11-01 06:25] LABS: Bedside Glucose 121 mg/dL (74-106)
--- NOTE | 2021-11-01 06:28 | RAD_ITS ---
STUDY: X-RAY CHEST REASON FOR EXAM: Female, 66 years old. SOB, crackles TECHNIQUE: AP and lateral views of the chest. COMPARISON: 10/16/2021 FINDINGS: Diffuse bilateral pulmonary infiltrates appear similar to 10/16/2021. Small bilateral pleural effusions. Normal size heart. Normal mediastinum and sol. Normal visualized pulmonary arteries. Normal visualized aortic arch and descending thoracic aorta. There is no demonstrated abnormality of the visualized soft tissue structures of the upper abdomen. RAD/Chest PA and Lateral IMPRESSION: Diffuse bilateral pulmonary infiltrates and small pleural effusions suspicious for CHF versus pneumonia. Electronically Signed: Froy Rousseau MD at 7:42 EDT ,
--- NOTE | 2021-11-01 06:51 | NURSING ---
Patient appeared short of breath this AM and admitted to feeling short of breath. 02 in the mid 80s on 3L NC, did not improve with repositioning and deep breathing. Crackles heard in both lungs. Increased oxygen to 4L NC, 02 slowly came up to 90%. Called respiratory therapist to assess and administer breathing treatment. Updated Dr Deleon, verbal order for chest xray and covid swab. Swab completed and sent to lab.
[2021-11-01] MEDS: Ipratropium/Albuterol Sulfate 3 ML AMPUL.NEB INHALATION (07:40)
[2021-11-01] MEDS: Carvedilol 6.25 MG Tablet PO ×2 (07:59→17:44)
[2021-11-01 08:00] LABS: Bedside Glucose 82 mg/dL (74-106)
[2021-11-01 08:00] LABS: Bedside Glucose 83 mg/dL (74-106)
[2021-11-01] MEDS: Juven (unflavored) Packet 1 PACKET PO ×2 (08:00→17:44)
[2021-11-01] MEDS: Aspirin E.C. 81 MG Tablet PO (08:00)
[2021-11-01] MEDS: Gabapentin 300 MG Capsule PO ×3 (08:08→17:49)
[2021-11-01] MEDS: Potassium Chloride Oral Tablet 20 MEQ PO ×2 (08:08→17:44)
--- NOTE | 2021-11-01 09:18 | NURSING ---
PT OXYGEN 84% ON 3L WITH EXERTION. UP PT TO 4L OXYGEN 88%. UP OXYGEN TO 5L 02 NOW 92%. RN AWARE WILL CONTINUE TO MONITOR.
--- NOTE | 2021-11-01 10:41 | NURSING ---
Dr. Deleon updated on unable to get IV access. New order to get Midline placed and if line not placed before next dose of Lasix give 80mg of oral Lasix. Order read back.
[2021-11-01 11:26] LABS: Bedside Glucose 137 mg/dL (74-106)
[2021-11-01] MEDS: Collagenase 30gm Tube 1 APPLIC TOPICAL (11:50)
[2021-11-01] MEDS: Insulin Lispro 100 UNIT/ML INSULN.PEN 15 UNIT SC (11:59)
--- NOTE | 2021-11-01 12:02 | WOUNDNOTE ---
wound photo: left foot
--- NOTE | 2021-11-01 12:02 | WOUNDNOTE ---
wound photo: left heel
--- NOTE | 2021-11-01 14:09 | NURSING ---
PT VERY EXHAUSTED AFTER ANY KIND OF ACTIVITY TODAY. MIDLINE PLACED IN UPPER LEFT ARM TODAY. VITALS DONE. RN AWARE
[2021-11-01] MEDS: Furosemide 100 MG/10 ML Vial 80 MG IV (14:12)
[2021-11-01] MEDS: 0.9% Saline Lock 10 ML Syringe IV (14:15)
[2021-11-01 17:06] LABS: Bedside Glucose 59 mg/dL (74-106)
[2021-11-01 17:30] LABS: Bedside Glucose 76 mg/dL (74-106)
--- NOTE | 2021-11-01 19:39 | NURSING ---
AT 1630 RN CALLED THIS NURSE TO PT ROOM. PT WAS FOUND SITTING ON FLOOR BESIDE BED. ASKED PT WHERE SHE WAS GOING PT STATED I WAS TRYING TO SEE IF I COULD WALK. O2 WAS OFF OF PT. 02 REPLACED BACK ON,VITALS DONE AND BLOOD SUGAR WAS 59. ASKED PT IF SHE WAS HURTING ANY WHERE PT STATED HER BUTT AND LEFT FOOT. ASKED PT IF SHE HIT HER HEAD,PT STATED NO. NO SIGNS OF ANY EXTRA BRUISING AND NO CUTS SEEN AT THAT TIME. ASSIST X4 BACK TO BED. OJ AND COOKIES GIVEN TO PT. WILL RECHECK AND CONTINUE TO MONITOR. NOTIFIED, CALLED FAMILY WITH NO ANSWER AND LEFT MESSAGE TO CALL.
--- NOTE | 2021-11-01 21:37 | NURSING ---
Addendum entered by Jessa Puckett 11/01/21 22:16: Dr. Deleon updated. Ordered for pt to be evaluated in the ED. Report called to ED and pt transferred down at 2205. Original Note: Pt noted to be very lethargic at this time. VS were as follows; (T) 97.1 F, (BP) 143/66, (P) 72 and regular, (SpO2) 92%, RR 14, blood sugar 134. PERRLA. Pt observed to be using accessory muscles to breath. Responding only to touch stimuli. Unable to tell this nurse name and date of . RN aware. Dr. Deleon paged. Waiting on response.
[2021-11-01 21:40] LABS: Bedside Glucose 134 mg/dL (74-106)
--- NOTE | 2021-11-02 01:03 | NURSING ---
Addendum entered by Jessa Puckett 11/02/21 02:01: Pt returned to floor at 0110. Transferred to bed via 3 assist and care provided. Alert and oriented x3 at this time. Call light left within reach and pt encouraged to use it if she needs anything. Original Note: ED called to give report. Per transportation coordinator, pt will be returning to the floor.
[2021-11-02] MEDS: Atorvastatin Calcium 80 MG Tablet PO ×2 (01:33→20:34)
[2021-11-02] MEDS: Paroxetine 20 MG Tablet 60 MG PO (01:33)
[2021-11-02] MEDS: buPROPion (XL) 300 MG TABLET.XL PO (01:34)
--- NOTE | 2021-11-02 04:22 | NURSING ---
At 0415, pt heard calling for help. Upon entering pt's room, pt noted sitting unclothed and at the foot of her bed near the edge. Pt confused and stated she was scared. Pt reassured that she was safe. Adjusted back into bed via 2 assist. NC was off and spo2 was 67%. Oxygen reapplied at 3 lpm. Pt used bedpan. SpO2 reassessed and was 80%. Oxygen increased to 4 lpm. Pt understands that she is confused and is questioning why and states that she is embarrassed. Reassured that urine culture was performed in ED and results are pending. Also educated that removing oxygen can cause confusion. Reinforced education on using call light for assistance. Provided comfort until pt was ready to try to rest for longer. RN aware. Note left for Dr. Deleon.
[2021-11-02] MEDS: Montelukast 10 MG Tablet PO (04:57)
[2021-11-02] MEDS: amLODIPine 10 MG Tablet PO (04:58)
[2021-11-02] MEDS: Nystatin Powder 15gm Bottle 1 APPLIC TOPICAL ×2 (04:58→18:16)
[2021-11-02] MEDS: Pantoprazole Sodium 40 MG Tablet PO ×2 (04:58→18:15)
[2021-11-02] MEDS: Fluticasone/Salmeterol 232-14 Inhaler 1 PUFF INHALATION ×2 (04:58→18:16)
[2021-11-02] MEDS: Cholecalciferol (VIT D3) 25 MCG TABLET (1,000 UNITS) 50 MCG PO (04:59)
[2021-11-02] MEDS: Levothyroxine 88 MCG Tablet PO (04:59)
[2021-11-02 05:15] VITALS: BP 122/61; PULSE 83; RESP 16; O2SAT 92
[2021-11-02] MEDS: Menthol/Lanolin/Calamine/Znox 113 GM Tube 1 APPLIC TOPICAL ×2 (05:16→18:16)
[2021-11-02 05:21] LABS: Bedside Glucose 138 mg/dL (74-106)
[2021-11-02] MEDS: Furosemide 100 MG/10 ML Vial 80 MG IV ×2 (06:39→15:13)
[2021-11-02 06:40] LABS: Anion Gap 5 (5-15); BUN 50 mg/dL (7-18); BUN/Creat Ratio 39.4 RATIO (10-20); Calcium,Total 9.2 mg/dL (8.5-10.1); Chloride 104 mmol/L (98-107); Creatinine, Serum 1.27 mg/dL (0.55-1.02); EST Glomerular Filtration Rate 45 mL/min (>60); Est Glom Filt Rate - Afr Amer 54 mL/min (>60); Estimated Creatinine Clearance 39.74 ml/min; Glucose 137 mg/dL (74-106); Potassium 3.8 mmol/L (3.5-5.1); Sodium Level 143 mmol/L (136-145)
--- NOTE | 2021-11-02 07:59 | EKG12_ITS ---
Test Reason : CHEST HEAVINESS Blood Pressure : / mmHG Vent. Rate : 090 BPM Atrial Rate : 090 BPM P-R Int : 172 ms QRS Dur : 082 ms QT Int : 368 ms P-R-T Axes : 075 085 049 degrees QTc Int : 450 ms Sinus rhythm with Premature atrial complexes Otherwise normal ECG When compared with ECG of 01-NOV-2021 22:15, MANUAL COMPARISON REQUIRED, DATA IS UNCONFIRMED Confirmed by HEYDI ROSS, GODWIN ([id number]), sports editor JASON PEREIRA ([id number]) on 11/03/2021 9:40:08 AM Referred By: Umer Deleon Confirmed By:GODWIN SOLIZ MD
[2021-11-02] MEDS: Potassium Chloride Oral Tablet 20 MEQ PO ×2 (08:37→18:15)
[2021-11-02] MEDS: Juven (unflavored) Packet 1 PACKET PO ×2 (08:37→18:14)
[2021-11-02] MEDS: Aspirin E.C. 81 MG Tablet PO (08:37)
[2021-11-02] MEDS: Carvedilol 6.25 MG Tablet PO ×2 (08:37→18:19)
[2021-11-02 08:50] LABS: Troponin-I HS 20 pg/mL (3.0-54.0)
--- NOTE | 2021-11-02 09:49 | NURSING ---
[employer] Note: Interview and Section F of MDS complete.
[2021-11-02] MEDS: Furosemide 40 MG/4 ML Vial IV (10:42)
[2021-11-02 10:56] LABS: Bedside Glucose 366 mg/dL (74-106)
[2021-11-02 11:03] LABS: Absolute Lymphocyte Count 0.45 X10^3/uL (0.83-4.51); Absolute Neutrophil Count 6.4 X10^3/uL (2.0-7.7); Basophil# 0.04 X10^3/uL; Basophil% 0.5 % (0-1); Eosinophil# 0.11 X10^3/uL; Eosinophils% 1.5 % (0-5); Hematocrit 27.5 % (37-47); Hemoglobin 8.4 g/dL (12.0-15.0); Lymphocyte # 0.45 X10^3/ul (0.83-4.51); Lymphocyte % 6.1 % (19-41); Mean Corp Hgb Conc 30.5 g/dL (32-36); Mean Corpuscular Hgb 28.4 pg (27.0-32.0); Mean Corpuscular Volume 92.9 fL (81-99); Mean Platelet Vol. 11.6 fl (6.2-12.0); Monocyte# 0.39 X10^3/uL; Monocyte% 5.3 % (0-10); NRBC Flagged by Analyzer 0 % (0-5); Neutrophil # 6.35 X10^3/uL (2.7-7.7); Neutrophil % 86.2 % (47-70); POSITIVE DIFFERENTIAL YES; Platelet Count 146 K/mm3 (150-450); RBC Distribution Width CV 15.7 % (11.6-14.6); RBC Distribution Width SD 53.2 fl (35.1-43.9); Red Blood Count 2.96 M/mm3 (4.2-5.4); White Blood Count 7.4 K/mm3 (4.4-11.0)
[2021-11-02 11:05] LABS: Differential Indicated SCAN CRITERIA MET
[2021-11-02 11:19] LABS: ALB/GLOB Ratio 0.5 RATIO (0.9-2.4); AST(SGOT) 19 U/L (15-37); Alanine Aminotransfer ALT/SGPT 39 U/L (13-56); Albumin, Serum 2.3 g/dL (3.2-5.0); Alkaline Phosphatase 115 U/L (45-117); Anion Gap 5 (5-15); BUN 49 mg/dL (7-18); BUN/Creat Ratio 35.3 RATIO (10-20); Calcium,Total 9.2 mg/dL (8.5-10.1); Chloride 101 mmol/L (98-107); Creatinine, Serum 1.39 mg/dL (0.55-1.02); EST Glomerular Filtration Rate 40 mL/min (>60); Est Glom Filt Rate - Afr Amer 49 mL/min (>60); Estimated Creatinine Clearance 36.31 ml/min; Globulin 4.5 g/dL (2.2-4.2); Glucose 276 mg/dL (74-106); Magnesium 2.1 mg/dL (1.6-2.6); Phosphorus 2.9 mg/dL (2.5-4.9); Potassium 4.4 mmol/L (3.5-5.1); Protein, Total 6.8 g/dL (6.4-8.2); Sodium Level 140 mmol/L (136-145)
[2021-11-02 11:32] LABS: Differential Comment SCANNED
[2021-11-02 11:51] LABS: BNP,B-Type NATRIURETIC PEPTIDE 207.1 pg/mL (0-100)
[2021-11-02 12:00] VITALS: O2SAT 90
--- NOTE | 2021-11-02 12:15 | PCM.PROGNOTE ---
Subjective Subjective This is a 66-year-old female who is seen bedside today with had elevated feet in a dependent position. Seen s/p left hallux amputation. She admits to some left foot pain secondary to swelling. She states that she feels tired and weak with some difficulty breathing. She denies any constitutional symptoms. She denies any further complaints. Objective Data Objective Data Vital Signs: Vital Signs Temp Pulse Resp BP Pulse Ox O2 Del Method O2 Flow Rate 97.1 F L 83 16 122/61 H 92 Nasal Cannula 4 11/01/21 21:38 11/02/21 05:15 11/02/21 05:15 11/02/21 05:15 11/02/21 05:15 11/02/21 05:15 11/02/21 05:15 FiO2 91 10/29/21 19:45 Oxygen Flow Rate (L/min) 4 Oxygen Delivery Method Nasal Cannula Weight: 109.86 kg Body Mass Index (BMI) 40.9 Intake & Output: Intake and Output for Last 24 Hours 10/31/21 11/01/21 11/02/21 23:59 23:59 23:59 Intake Total 1522 / 1522 850 / 850 120 / 120 Balance 1522 / 1522 850 / 850 120 / 120 Lab / Micro Data Result Diagrams: 11/02/21 10:45 11/02/21 10:45 Labs: Laboratory Results - last 24 hr 11/01/21 16:37: POC Glucose 59 L 11/01/21 17:12: POC Glucose 76 11/01/21 21:19: POC Glucose 134 H 11/02/21 04:56: POC Glucose 138 H 11/02/21 05:07: Sodium 143, Potassium 3.8, Chloride 104, Carbon Dioxide 34.0 H, Anion Gap 5, BUN 50 H, Creatinine 1.27 H, Estim Creat Clear Calc 39.74, Est GFR (MDRD) Af Amer 54 L, Est GFR (MDRD) Non-Af 45 L, BUN/Creatinine Ratio 39.4 H, Glucose 137 H, Calcium 9.2 11/02/21 08:25: Troponin I High Sens 20 11/02/21 10:34: POC Glucose 366 H 11/02/21 10:45: WBC 7.4, RBC 2.96 L, Hgb 8.4 L, Hct 27.5 L, MCV 92.9, MCH 28.4, MCHC 30.5 L, RDW Std Deviation 53.2 H, RDW Coeff of Magen 15.7 H, Plt Count 146 L, MPV 11.6, Immature Gran % (Auto) 0.400, Neut % (Auto) 86.2 H, Lymph % (Auto) 6.1 L, [place] % (Auto) 5.3, Eos % (Auto) 1.5, Baso % (Auto) 0.5, Absolute Neuts (auto) 6.4, Absolute Lymphs (auto) 0.45 L, Nucleated RBC % 0, Differential Comment SCANNED 11/02/21 10:45: Sodium 140, Potassium 4.4, Chloride 101, Carbon Dioxide 34.0 H, Anion Gap 5, BUN 49 H, Creatinine 1.39 H, Estim Creat Clear Calc 36.31, Est GFR (MDRD) Af Amer 49 L, Est GFR (MDRD) Non-Af 40 L, BUN/Creatinine Ratio 35.3 H, Glucose 276 H, Calcium 9.2, Phosphorus 2.9, Magnesium 2.1, Total Bilirubin 0.80, AST 19, ALT 39, Alkaline Phosphatase 115, Total Protein 6.8, Albumin 2.3 L, Globulin 4.5 H, Albumin/Globulin Ratio 0.5 L 11/02/21 10:45: B-Natriuretic Peptide 207.1 H Micro: Microbiology 11/02/21 08:55 Mucosa - Nasopharyngeal Respiratory Panel (PCR) - Final 11/01/21 06:35 Nasal Secretion SARS-CoV-2 Antigen (Rapid) - Final 10/29/21 14:16 Nasal Secretion SARS-CoV-2 Antigen (Rapid) - Final 10/27/21 07:00 Nasal Secretion SARS-CoV-2 Antigen (Rapid) - Final Physical Exam Const alert, oriented x3 and no apparent distress General Appearance: cooperative and comfortable HEENT normocephalic Eyes General Eye: normal appearance of both eyes Neck General: normal visual inspection Lymph Lymphatic: no lymphadenopathy noted and no lymphedema noted Resp normal respiratory effort Cardio regular rate and regular rhythm Extremity normal capillary refill and no calf tenderness Skin no rashes or lesions noted, skin turgor normal and no jaundice Skin Narrative: Left foot: Mild nonpitting postsurgical edema to the left foot. Sutures intact at left hallux amputation stump site. No erythema, no purulent drainage, no malodor, no palpable fluctuance, or other localized signs of infection. Wound Narrative: Left foot: Left heel stage II decubitus ulceration noted to the posterior aspect of the heel. Site demonstrates stable eschar covering with no localized erythema,no purulent drainage, no malodor, no palpable fluctuance, or other localized signs of infection. 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 Dr. Deleon had ordered lab work, EKG, troponins, and CXR to further evaluate. Dr. Deleon's medical management is greatly appreciated. She states that she feels tired, weak and does admit to some pain in the left erlinda secondary to swelling. Site was inspected, sutures are intact to the left hallux amputation stump site. No signs of infection. There is rubor about the incision site and first metatarsal head without increased temperature. There is a slight serosanguineous drainage from the central aspect of the incision site secondary to swelling. No purulent drainage, no malodor, no palpable fluctuance. At this point in time her amputation stump site looks well in terms of healing progress and there is no evidence of necrotic tissue about the incision site. She does have a small area of of ecchymosis at the dorsomedial aspect of the first metatarsal head. I will continue to watch the site for any changes. Dressings changed consisted of Betadine soaked Adaptic, 4 x 4 gauze, ABD, Kerlix, and an Kenny wrap rolled onto the foot. Santyl applied to left heel and dressed with Adaptic 4 x 4 gauze and an ABD and Kerlix. Surgery 10/21/2021: Secondary to her dry gangrene there was also a portion of exposed bone/joint capsule of the proximal phalanx head secondary to amount of tissue at the left hallux, tissue and bone were cultured and sent to micro & pathology. Surgical cultures 10/21/2021: Tissue culture left hallux demonstrates Proteus Mirabilis. Bone culture left hallux demonstrates Proteus Mirabilis. Last WBC was trending down 8.4 and within normal limits on 11/02/2021. Will continue to evaluate. He was brought to my attention that the patient was removed from her IV antibiotics since arrival to the transitional care unit. I discussed with nursing today and as a precaution have restarted her on IV ceftriaxone and oral doxycycline 100 mg twice daily for 10 days. I feel that the recent rubor is related to continued edema from having a dependent position creating swelling about the incision site. I again stressed with patient and nursing staff that she needs to continue to elevate the left lower extremity at all times of rest as continued swelling the lower dehiscence of the surgical site. Nursing may change dressings daily. May apply Santyl to the left heel daily. I discussed continued offloading of the left heel and a waffle boot/Prevalon boot. Patient may be partial weightbearing to the left heel in a surgical shoe for therapy sessions and bathroom privileges. She may continue her current pain management of oxyir as needed. She is elevate the left foot at all times of rest to control postoperative edema I will continue to follow while in house for continued postsurgical care. At the time of discharge she is recommended to follow-up with me in the wound care center for her left heel ulcer. Jr. Leny MorganP.M. [facility] [phone] Note: Etix speech recognition supervisor pairing and inspecting software was used to create portions of this document. Sound-alike and misspelled words, as well as other supervisor pairing and inspecting errors may be contained in the documentation.
[2021-11-02] MEDS: Insulin Lispro 100 UNIT/ML INSULN.PEN 7 UNIT SC ×3 (12:16→20:35)
[2021-11-02] MEDS: Collagenase 30gm Tube 1 APPLIC TOPICAL (12:20)
[2021-11-02] MEDS: Gabapentin 100 MG Capsule PO ×2 (12:26→18:17)
[2021-11-02 14:00] VITALS: BP 172/71; PULSE 87; RESP 20; TEMP 36.3; O2SAT 97
[2021-11-02 14:05] VITALS: O2SAT 94
--- NOTE | 2021-11-02 14:32 | MDS.RN ---
Information for the mds was obtained from review of the clinical record, interview of resident, staff, and direct observation of resident's care.
[2021-11-02] MEDS: 0.9% Saline Lock 10 ML Syringe IV ×3 (15:13→19:07)
[2021-11-02 16:45] LABS: Bedside Glucose 228 mg/dL (74-106)
[2021-11-02] MEDS: Senna/Docusate Sodium 1 Tablet 2 TABLET PO (18:14)
[2021-11-02] MEDS: Doxycycline 100 MG CAPSULE PO (18:14)
[2021-11-02] MEDS: Acetaminophen 500 MG Tablet 1000 MG PO (18:15)
[2021-11-02] MEDS: Ceftriaxone 1 GM/50 ML BAG IV (18:17)
[2021-11-02 19:52] VITALS: PULSE 85; RESP 24
[2021-11-02] MEDS: Ipratropium/Albuterol Sulfate 3 ML AMPUL.NEB INHALATION (19:52)
[2021-11-02 20:00] LABS: Bedside Glucose 258 mg/dL (74-106)
[2021-11-02] MEDS: MethylPREDNISolone 125 MG/2 ML Vial IV (20:25)
[2021-11-02] MEDS: LORazepam 0.5 MG Tablet PO (20:32)
[2021-11-02] MEDS: traZODone 50 MG Tablet PO (20:32)
[2021-11-02] MEDS: Paroxetine 20 MG Tablet 40 MG PO (20:33)
[2021-11-02] MEDS: buPROPion (XL) 150 MG TABLET.XL PO (20:33)
--- NOTE | 2021-11-02 20:34 | NURSING ---
1034; Pt called DEVELOPMENT TECHNOLOGIST stating she was having hard time breathing. This nurse entered the room and pt spo2 was at 83% on 8 L of O2 per nc . Pt was spo2 was not increasing. 1035; Rapid response was called. 177/82, hr 88, spo2 95, O2 at 10 L. Pt cont. to c/o sob. 1045; 40 mg IV lasix given, labs drawn; BNP, CBCD, CMP, MG, [facility] Pt VS 157/77, rr 24, hr 84, SPo2 94% on 9 L per NC per respiratory. Pt calming stating she is feeling better. 1050. VS 149/72. hr 80, rr 22, spo2 90% on 6 l per nc. pt comfortable at this time. awaiting labs.
[2021-11-02] MEDS: Insulin Glargine-YFGN 100 UNIT/ML Pen 30 UNIT SC (20:35)
--- NOTE | 2021-11-02 20:43 | NURSING ---
1700; Pt went for CT of chest. To start on rocephin IV and doxycycline po per Dr. No. Dr. Deleon updated on all labs and test results.
[2021-11-02 21:45] LABS: Bedside Glucose 216 mg/dL (74-106)
--- NOTE | 2021-11-02 21:57 | NURSING ---
Updated Dr. Deleon that patient is calmer and resting after neb treatment and solu-medrol dose. Updated him that she is still on 7L NC to maintain sats 90% or above, lungs sound the same. New verbal order for medrol dose pack to start tomorrow, pharmacy to dose.
[2021-11-03 02:01] LABS: Bedside Glucose 213 mg/dL (74-106)
--- NOTE | 2021-11-03 03:11 | NURSING ---
Patient heard yelling out from room multiple times throughout the shift saying I can't breathe. Each time staff found her her sitting in bed w/ oxygen removed. 02 sats drop into low 70s on room air, up to 92% after 7L NC reapplied.
[2021-11-03] MEDS: Menthol/Lanolin/Calamine/Znox 113 GM Tube 1 APPLIC TOPICAL (04:43)
[2021-11-03] MEDS: Collagenase 30gm Tube 1 APPLIC TOPICAL (04:43)
[2021-11-03] MEDS: Fluticasone/Salmeterol 232-14 Inhaler 1 PUFF INHALATION (04:44)
[2021-11-03] MEDS: Furosemide 80 MG Tablet PO (04:45)
[2021-11-03] MEDS: Nystatin Powder 15gm Bottle 1 APPLIC TOPICAL (04:46)
[2021-11-03] MEDS: Pantoprazole Sodium 40 MG Tablet PO (04:47)
[2021-11-03] MEDS: Levothyroxine 88 MCG Tablet PO (04:47)
[2021-11-03] MEDS: Senna/Docusate Sodium 1 Tablet 2 TABLET PO (04:47)
[2021-11-03] MEDS: Doxycycline 100 MG CAPSULE PO (04:47)
[2021-11-03] MEDS: amLODIPine 10 MG Tablet PO (04:47)
[2021-11-03] MEDS: Montelukast 10 MG Tablet PO (04:47)
[2021-11-03] MEDS: Ceftriaxone 1 GM/50 ML BAG IV (04:59)
[2021-11-03 05:00] VITALS: BP 149/79; PULSE 97; RESP 24; O2SAT 92
[2021-11-03 06:55] LABS: Bedside Glucose 273 mg/dL (74-106)
[2021-11-03] MEDS: Ipratropium/Albuterol Sulfate 3 ML AMPUL.NEB INHALATION (07:29)
[2021-11-03 07:30] VITALS: PULSE 105; RESP 24; O2SAT 93
--- NOTE | 2021-11-03 08:04 | NURSING ---
Addendum entered by Candace Garcia 11/03/21 08:27: Tried to reach sons to provide update, unable to reach Chava, left message with Judd to return call to [facility] nurse's station. Updated RN Sugey that message left. Original Note: Patient feeling short of breath again around 0650, 02 sats in low to mid 80s on 7L NC, only coming up to 86-88%. Crackles and wheezes heard on auscultation. Respiratory therapist notified and came to room to give treatment. Patient put on 8L, sats slowly cami to 90%. Dr Deleon on unit, updated about patient status, order to send patient to ER. Report called to nurse Husain in the ER, patient transported to ER.
--- NOTE | 2021-11-03 09:39 | NURSING ---
Spoke with son Evelio, provided update on patients status and plan for pt to be admitted to PCU from ED.
--- NOTE | 2021-11-03 17:55 | DS.PCM_ITS ---
Providers Date of Admission: 10/22/21 Primary Care Physician: Dr. Froy Gonzales MD Consultations 10/22/21 17:25 Consult: Podiatry Routine Consulting Provider: Noah No Reason for Consult: status post left hallux amputation. 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 Routine Comment: Reason For Visit: ACUTE ON CHRONIC FOOT ULCERS Diagnosis Discharge Diagnosis (1) Diabetic polyneuropathy: Status: Acute Code(s): E11.42 - Type 2 diabetes mellitus with diabetic polyneuropathy (2) Coronary artery disease: Status: Acute Code(s): I25.10 - Atherosclerotic heart disease of [place] coronary artery without angina pectoris (3) Anxiety: Status: Acute Code(s): F41.9 - Anxiety disorder, unspecified (4) Hypothyroidism: Status: Acute Code(s): E03.9 - Hypothyroidism, unspecified (5) Chronic obstructive pulmonary disease: Status: Chronic Code(s): J44.9 - Chronic obstructive pulmonary disease, unspecified (6) Atrial fibrillation with rapid ventricular response: Status: Acute Code(s): I48.91 - Unspecified atrial fibrillation (7) History of amputation of hallux: Status: Acute Code(s): Z89.419 - Acquired absence of unspecified great toe Plan 66 year old female with below past medical history hospitalized for infected gangrenous great toe requiring amputation 10/21/[address] Guidry, complicated by anemia secondary to upper gastrointestinal bleed, atrial fibrillation with rapid ventricular response, acute on chronic diastolic congestive heart failure, COPD exacerbation, acute respiratory failure with hypoxia requiring BiPAP rescue, admitted to TCU with debility, here for rehabilitation, strengthening, prior to discharge to [facility] [place]. * Debility - PT/OT. * Pain - Tylenol 1000mg q6h prn pain (1-3), Oxycodone 10mg q4h prn pain (4-10). * Bowel - senna/colace 2 tablets bid, Dulcolax 10mg pr daily prn. * Adult immunization - Administer pneumonia vaccine, covid19 vaccine, flu vaccine as appropriate. * DVT prophylaxis - Hold, GI bleed. * Hypertension - Coreg 6.25mg bid, Amlodipine 10mg daily. * Coronary Artery Disease - Coreg 6.25mg bid, Aspirin 81mg daily. * Hyperlipidemia - Atorvastatin 80mg qhs. * Depression - Wellbutrin XL 300mg qhs, Paroxetine 60mg qhs, stable chronic nursing home use, GDR not recommended. * Left foot cellulitis status post left hallux amputation - Keflex 500mg q8h thru 10/24/2021. * Diabetes Mellitus II - Trulicty 0.75mg qweek, Glargine 37 units qhs, Lispro 10 units QACHS. * Allergic rhinitis - Singulair 10mg daily, Flonase 1 spray nasal daily prn. * COPD - Breo 1 puff daily, Duoneb 3ml bid prn, prednisone 40mg daily thru 10/24/2021. * Chronic diastolic congestive heart failure - Coreg 6.25mg bid, Furosemide 80mg daily. * Diabetic polyneuropathy - Gabapentin 300mg tid. * Nutrition -Say 1 packet po bid. * Hypothyroidism - Levothyroxine 88mcg daily. 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 * Thrush - Nystatin 500,000 4x/day x 10 days. * GERD - Pantoprazole 40mg bid. * Insomnia - Trazodone 100mg qhs. Medications at Discharge Home Medications bupropion HCl 300 mg 24 hr tablet, extended release 150 mg PO QHS depression 09/02/20 fluticasone furoate 100 mcg-vilanterol 25 mcg/dose inhalation powder (Breo [place]) 1 inh inhalation BID breathing 09/02/20 fluticasone propionate 50 mcg/actuation nasal spray,suspension 1 spray intranasal DAILY PRN Allergies 09/02/20 furosemide 80 mg tablet 80 mg PO DAILY water pill 09/02/20 levothyroxine 88 mcg tablet 88 mcg PO DAILY thyroid 09/02/20 lorazepam 1 mg tablet 0.5 mg PO QHS anxiety 09/02/20 montelukast 10 mg tablet 10 mg PO DAILY allergies 09/02/20 trazodone 100 mg tablet 50 mg PO QHS sleep 09/02/20 aspirin 81 mg tablet,delayed release (Adult Aspirin Regimen) 81 mg PO DAILY heart 05/17/21 amlodipine 10 mg tablet 10 mg PO DAILY bp 08/25/21 gabapentin 100 mg capsule (Neurontin) 100 mg PO TID nerve pain 08/25/21 insulin detemir U-100 100 unit/mL (3 mL) subcutaneous pen 30 unit subcut QHS blood sugar 09/02/21 insulin lispro 100 unit/mL subcutaneous pen 7 unit subcut ACHS blood sugar 09/02/21 ipratropium 0.5 mg-albuterol 3 mg (2.5 mg base)/3 mL nebulization soln 3 ml inhalation BID PRN sob 09/02/21 paroxetine HCl 30 mg tablet 40 mg PO QHS mental health 09/02/21 atorvastatin 80 mg tablet 80 mg PO QHS Cholestrol 10/22/21 carvedilol 6.25 mg tablet 6.25 mg PO BID BP 10/22/21 pantoprazole 40 mg tablet,delayed release 40 mg PO BID GERD 10/22/21 acetaminophen 500 mg tablet 1,000 mg PO Q8H PRN Pain 11/03/21 arginine 7 gram-glutamine 7 gram-calcium HMB 1.5 gram oral powder pack (Say) 1 ea PO BID 11/03/21 bisacodyl 10 mg rectal suppository 10 mg MA DAILY PRN Constipation 11/03/21 ceftriaxone 1 gram intravenous piggyback 1 g IV Q12H 11/03/21 collagenase clostridium histo. 250 unit/gram topical ointment (Santyl) 1 applic topical DAILY 11/03/21 doxycycline monohydrate 100 mg tablet 100 mg PO BID 11/03/21 menthol 0.44 %-zinc oxide 20.6 % topical ointment (Calmoseptine) 1 applic topical BID 11/03/21 methylprednisolone 4 mg tablet 0 mg PO UD steriod 11/03/21 nystatin 100,000 unit/gram topical powder 1 applic topical BID 11/03/21 oxycodone 5 mg tablet 5 mg PO Q4H PRN Pain 11/03/21 potassium chloride 20 mEq tablet,extended release 20 meq PO BID 11/03/21 sennosides 8.6 mg tablet (senna) 17.2 mg PO BID 11/03/21 Hospital Course Operations None Procedures None Summary of Care Provided Minutes Spent on Discharge: 35 Hospital Course: 66 year old female with below past medical history hospitalized for infected gangrenous great toe requiring amputation 10/21/[address] Guidry, complicated by anemia secondary to upper gastrointestinal bleed, atrial fibr illation with rapid ventricular response, acute on chronic diastolic congestive heart failure, COPD exacerbation, acute respiratory failure with hypoxia requiring BiPAP rescue, admitted to TCU with debility, here for rehabilitation, strengthening, prior to discharge to [facility] [place]. 11/03/2021 Resident having respiratory distress requiring BiPAP rescue. CTA chest negative PE, but showed pneumonia, heart failure less likely BNP 207. Discharge to [facility] for evaluation, admission to hospital. Physical Exam Const alert General Appearance: cooperative HEENT normocephalic Eyes PERRL and EOMs intact bilaterally Neck supple, no JVD and no carotid bruits Resp clear to auscultation bilaterally Effort and Inspection: respiratory distress Auscultation: crackles and rales Cardio regular rate and regular rhythm GI normal to inspection, nondistended, normoactive bowel sounds, non-tender and non-distended Extremity normal capillary refill General Extremity: Negative for edema Skin no rashes or lesions noted General Skin Exam: no breakdown Psych affect normal Appearance: appropriate Weight / BMI Weight Weight: 109.86 kg Body Mass Index (BMI) 40.9 ABG / Lab / Microbiology Data Result Diagrams: 11/02/21 10:45 11/02/21 10:45 Laboratory: Laboratory Results - last 24 hr 11/02/21 19:39: POC Glucose 258 H 11/02/21 21:25: POC Glucose 216 H 11/03/21 01:43: POC Glucose 213 H 11/03/21 06:12: POC Glucose 273 H Microbiology: Microbiology 11/02/21 08:55 Mucosa - Nasopharyngeal Respiratory Panel (PCR) - Final 11/01/21 06:35 Nasal Secretion SARS-CoV-2 Antigen (Rapid) - Final 10/29/21 14:16 Nasal Secretion SARS-CoV-2 Antigen (Rapid) - Final 10/27/21 07:00 Nasal Secretion SARS-CoV-2 Antigen (Rapid) - Final D/C Instructions Discharge Diet: No restrictions Discharge Activity: Return to Normal Activity, May Shower and Use Walker Weight Bearing Status: Weight bearing as tolerated Call your doctor if you observe: Fever of 101 or Higher, Inability to urinate, Inability to have a bowel movement, Shortness of breath, Dizziness, Fainting spells, Swelling in the ankles, Chest pain and Uncontrolled pain Additional Instructions: Discharge to [facility] for evaluation, admission to hospital. Meaningful Use Info Meaningful Use Diagnoses (Choose all that apply): None applicable Discharge Plan Admission Admit Date/Time: 10/22/21 15:57 Primary Reason for Your Visit: Debility. Attending Provider: Umer Deleon Chi Primary Care Provider: Froy Gonzales Consulting Providers: Noah No Instructions Additional Instructions / Restrictions: Discharge to [facility] for evaluation, admission to hospital. Discharge Orders/Prescriptions Prescriptions: No Action aspirin [Adult Aspirin Regimen] 81 mg tablet,delayed release (DR/EC) 81 mg PO DAILY levothyroxine 88 mcg Tablet 88 mcg PO DAILY furosemide 80 mg Tablet 80 mg PO DAILY trazodone 100 mg Tablet 50 mg PO QHS montelukast 10 mg Tablet 10 mg PO DAILY lorazepam 1 mg Tablet 0.5 mg PO QHS fluticasone propionate 50 mcg/actuation [facility],Suspension 1 spray INTRANASAL DAILY PRN (Reason: Allergies) bupropion HCl 300 mg Tablet Extended Release 24 Hr 150 mg PO QHS fluticasone furoate-vilanterol [Breo Ellipta] 100-25 mcg/dose Blister With Device 1 inh INHALATION BID ipratropium-albuterol 0.5 mg-3 mg(2.5 mg base)/3 mL solution for nebulization 3 ml INHALATION BID PRN (Reason: sob) insulin lispro 100 unit/mL insulin pen 7 unit SUBCUT ACHS Protocol: 6. Sliding Scale Insulin Custom Condition: 151-175 Dose/Route: 5 Condition: 176-200 Dose/Route: 7 Condition: 201-250 Dose/Route: 9 Condition: 251-300 Dose/Route: 11 Condition: 301-350 Dose/Route: 13 Condition: 351-400 Dose/Route: 15 Condition: 401-450 Dose/Route: 19 Protocol Text: Custom Sliding Scale paroxetine HCl 30 mg tablet 40 mg PO QHS insulin detemir U-100 100 unit/mL (3 mL) insulin pen 30 unit SUBCUT QHS amlodipine 10 mg Tablet 10 mg PO DAILY gabapentin [Neurontin] 100 mg Capsule 100 mg PO TID atorvastatin 80 mg tablet 80 mg PO QHS carvedilol 6.25 mg tablet 6.25 mg PO BID pantoprazole 40 mg tablet,delayed release (DR/EC) 40 mg PO BID menthol-zinc oxide [Calmoseptine] 0.44-20.6 % Ointment 1 applic TOPICAL BID sennosides [senna] 8.6 mg Tablet 17.2 mg PO BID methylprednisolone 4 mg Tablet 0 mg PO UD doxycycline monohydrate 100 mg Tablet 100 mg PO BID acetaminophen 500 mg Tablet 1,000 mg PO Q8H PRN (Reason: Pain) bisacodyl 10 mg Suppository 10 mg MA DAILY PRN (Reason: Constipation) nystatin 100,000 unit/gram Powder 1 applic TOPICAL BID Santyl 250 unit/gram Ointment 1 applic TOPICAL DAILY oxycodone 5 mg Tablet 5 mg PO Q4H PRN (Reason: Pain) ceftriaxone 1 gram Piggyback 1 g IV Q12H Say 7-7-1.5 gram Powder In Packet 1 ea PO BID potassium chloride 20 mEq Tablet Extended Release 20 meq PO BID Referrals / Follow Up: Froy Gonzales MD [Primary Care Provider] - Disposition Disposition (needs filled in before D/C Order can be placed): Acute Care Hospital
--- NOTE | 2021-11-04 13:40 | PN_ITS ---
Subjective Subjective Patient is a 66-year-old female who is seen bedside resting today on BiPAP. She was readmitted to the hospital following an episode of acute on chronic respiratory failure with hypoxia. She is seen bedside today status post left hallux amputation. She states she is very very tired today and feels weak. She denies any constitutional symptoms today. She has no further complaints today. Objective Data Objective Data Vital Signs: Vital Signs Temp Pulse Resp BP Pulse Ox O2 Del Method O2 Flow Rate 97.3 F L 105 H 24 H 149/79 H 93 Nasal Cannula 8 11/02/21 14:00 11/03/21 07:30 11/03/21 07:30 11/03/21 05:00 11/03/21 07:30 11/03/21 07:30 11/03/21 07:30 FiO2 91 10/29/21 19:45 Oxygen Flow Rate (L/min) 8 Oxygen Delivery Method Nasal Cannula Weight: 109.86 kg Body Mass Index (BMI) 40.9 Intake & Output: Intake and Output for Last 24 Hours 11/02/21 11/03/21 11/04/21 23:59 23:59 23:59 Intake Total 345.5 / 345.5 50 / 50 Output Total 700 / 700 Balance 345.5 / 345.5 -650 / -650 Lab / Micro Data Result Diagrams: 11/02/21 10:45 11/02/21 10:45 Micro: Microbiology 11/02/21 08:55 Mucosa - Nasopharyngeal Respiratory Panel (PCR) - Final 11/01/21 06:35 Nasal Secretion SARS-CoV-2 Antigen (Rapid) - Final 10/29/21 14:16 Nasal Secretion SARS-CoV-2 Antigen (Rapid) - Final 10/27/21 07:00 Nasal Secretion SARS-CoV-2 Antigen (Rapid) - Final Physical Exam Const alert, oriented x3 and no apparent distress General Appearance: cooperative and comfortable HEENT normocephalic Eyes General Eye: normal appearance of both eyes Neck General: normal visual inspection Lymph Lymphatic: no lymphadenopathy noted and no lymphedema noted Resp normal respiratory effort Cardio regular rate and regular rhythm Extremity normal capillary refill and no calf tenderness Skin no rashes or lesions noted, skin turgor normal and no jaundice Skin Narrative: Left foot: Mild nonpitting postsurgical edema to the left foot. Sutures intact at left hallux amputation stump site. No erythema, no purulent drainage, no malodor, no palpable fluctuance, or other localized signs of infection. Wound Narrative: Left foot: Left heel stage II decubitus ulceration noted to the posterior aspect of the heel. Site demonstrates stable eschar covering with no localized erythema,no purulent drainage, no malodor, no palpable fluctuance, or other localized signs of infection. 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 Dr. Deleon had ordered lab work, EKG, troponins, and CXR to further evaluate. CXR demonstrated pulmonary infiltrates consistent with a pneumonia and with difficulty breathing she was readmitted to the hospital and placed on BiPAP. She states that she feels tired, weak and does admit to some pain in the left foot secondary to swelling. Site was inspected, sutures are intact to the left hallux amputation stump site. No signs of infection. There is rubor about the incision site and first metatarsal head without inc reased temperature, this is subsiding. There is a slight serosanguineous drainage from the central aspect of the incision site secondary to swelling. No purulent drainage, no malodor, no palpable fluctuance. At this point in time her amputation stump site looks well in terms of healing progress and there is no evidence of necrotic tissue about the incision site. She does have a small area of of ecchymosis at the dorsomedial aspect of the first metatarsal head. I will continue to watch the site for any changes. Dressings changed consisted of Betadine soaked Adaptic, 4 x 4 gauze, ABD, Kerli x, and an Kenny wrap rolled onto the foot. Santyl applied to left heel and dressed with Adaptic 4 x 4 gauze and an ABD and Kerlix. Surgery 10/21/2021: Secondary to her dry gangrene there was also a portion of exposed bone/joint capsule of the proximal phalanx head secondary to amount of tissue at the left hallux, tissue and bone were cultured and sent to micro & pathology. Surgical cultures 10/21/2021: Tissue culture left hallux demonstrates Proteus Mirabilis. Bone culture left hallux demonstrates Proteus Mirabilis. Last WBC was 9.2 and within normal limits on 11/03/2021. Will continue to e valuate. She is currently on IV ceftriaxone and oral doxycycline 100 mg twice daily for 10 days. I feel that the recent rubor is related to continued edema from having a dependent position creating swelling about the incision site. I again stressed with patient and nursing staff that she needs to continue to elevate the left lower extremity at all times of rest as continued swelling the lower dehiscence of the surgical site. Nursing may change dressings daily. May apply Santyl to the left heel daily. I discussed continued offloading of the left heel in a waffle boot/Prevalon boot for treatment of left heel decubitus ulceration x2. Patient may be partial weightbearing to the left heel in a surgical shoe for therapy sessions and bathroom privileges. She may continue her current pain management of oxyir as needed. She is elevate the left foot at all times of rest to control postoperative edema I will continue to follow while in house for continued postsurgical care. At the time of discharge she is recommended to follow-up with me in the wound care center for her left heel ulcer. Jr. Leny MorganP.M. [facility] [phone] Note: [employer] speech recognition investigation specialist software was used to create portions of this document. Sound-alike and misspelled words, as well as other investigation specialist errors may be contained in the documentation.
== END 2021-11-03 07:20 | disposition short-term general hospital (02) | DRG 559 ==
PROVIDERS: Internal Medicine; Student in an Organized Health Care Education/Training Program; Admitting Provider Family Medicine Geriatric Medicine; PCP Family Medicine; Visit Provider Family Medicine Geriatric Medicine
DX: Z47.81 Encounter for orthopedic aftercare following surgical amputation (principal); J18.9 Pneumonia, unspecified organism; B37.0 Candidal stomatitis; J44.0 Chronic obstructive pulmonary disease with (acute) lower respiratory infection; I50.32 Chronic diastolic (congestive) heart failure; M86.8X7 Other osteomyelitis, ankle and foot; L03.116 Cellulitis of left lower limb; I27.21 Secondary pulmonary arterial hypertension; I11.0 Hypertensive heart disease with heart failure; L89.622 Pressure ulcer of left heel, stage 2; E11.621 Type 2 diabetes mellitus with foot ulcer; E11.42 Type 2 diabetes mellitus with diabetic polyneuropathy; L89.892 Pressure ulcer of other site, stage 2; J44.9 Chronic obstructive pulmonary disease, unspecified; I48.91 Unspecified atrial fibrillation; E11.628 Type 2 diabetes mellitus with other skin complications; Z89.422 Acquired absence of other left toe(s); Z79.4 Long term (current) use of insulin; E11.69 Type 2 diabetes mellitus with other specified complication; F41.9 Anxiety disorder, unspecified; M19.90 Unspecified osteoarthritis, unspecified site; K21.9 Gastro-esophageal reflux disease without esophagitis; E78.5 Hyperlipidemia, unspecified; I25.10 Atherosclerotic heart disease of native coronary artery without angina pectoris; E03.9 Hypothyroidism, unspecified; I25.2 Old myocardial infarction; F32.A Depression, unspecified; Z87.891 Personal history of nicotine dependence; Z79.899 Other long term (current) drug therapy; Z79.890 Hormone replacement therapy; Z79.82 Long term (current) use of aspirin; Z99.81 Dependence on supplemental oxygen; Z23 Encounter for immunization
CPT/HCPCS: 36415; 71046; 80048; 80053; 82962; 83735; 83880; 84100; 84484; 85025; 87633; 87811; 91309; 93005; 94640; 97110; 97116; 97162; 97166; 97530; 97535; 97802; J7050; A4216; J1940

== ENCOUNTER 2021-11-01 22:10 | Emergency (ER) | payer MEDICARE, MEDICAID, SELFPAY ==
[2021-11-01 22:11] VITALS: PULSE 83; RESP 20; TEMP 36.2; O2SAT 91; BMI 40.9
--- NOTE | 2021-11-01 22:15 | EKG12_ITS ---
Test Reason : AMS Blood Pressure : / mmHG Vent. Rate : 083 BPM Atrial Rate : 083 BPM P-R Int : 152 ms QRS Dur : 088 ms QT Int : 390 ms P-R-T Axes : 050 079 159 degrees QTc Int : 458 ms Normal sinus rhythm Nonspecific ST and T wave abnormality Abnormal ECG Confirmed by HEYDI ROSS, GODWIN ([id number]), greeting card editor JASON PEREIRA ([id number]) on 11/02/2021 11:19:49 AM Referred By: Confirmed By:GODWIN SOLIZ MD
[2021-11-01 22:17] VITALS: BP 140/44; BP 151/68; PULSE 22; RESP 17; TEMP 36.6; O2SAT 93
--- NOTE | 2021-11-01 22:28 | EX.ED.DYSGE1 ---
HPI History of Present Illness Chief Complaint: Alt LOC Informant: patient Narrative Narrative: Patient sent down from TCU for evaluation concern for altered mental status. Reported patient had a fall around 3:30 PM, she states she was trying go to the bathroom knows there helped her. She does use a walker. She can walk with assist reports weightbearing to the heel left side as needed. She is status post toe amputation back on October 21. She had Proteus wound infection that was bacteremic. She finished antibiotics. She wears chronic oxygen 3 L. Denies dyspnea cough. Denies vomiting or diarrhea. No urinary symptoms. Reported try to wake her up this evening she was confused. She states she was sleeping and tired. She remembers falling earlier. She did not hit her head. Blood glucose was 144. She states she hit her knees. There is no pain in the knees currently. [facility] Medical History Acute cervical myofascial strain Acute on chronic respiratory failure with hypoxemia Anemia Asthma Atherosclerotic heart disease of [place] coronary artery without angina pectoris Atrial fibrillation CAD (coronary artery disease) Chronic heart failure with preserved ejection fraction (HFpEF) Chronic heel ulcer Chronic respiratory failure with hypoxia, on home oxygen therapy Chronic ulcer of great toe of left foot Closed head injury Congestive heart failure (CHF) COPD (chronic obstructive pulmonary disease) Decubitus ulcer of dorsum of foot, stage 2 Decubitus ulcer of left heel, stage 2 Decubitus ulcer of left heel, stage 3 Decubitus ulcer, heel, left, unstageable Depression Diabetes mellitus with diabetic polyneuropathy Diabetes type 2, controlled Diabetic foot ulcers Diverticulitis Essential hypertension Former smoker History of amputation of left great toe History of non-ST elevation myocardial infarction (NSTEMI) (02/24/17) Hyperlipidemia Hypothyroid Myocardial infarct Non-rheumatic tricuspid valve insufficiency Nondisplaced fracture of distal phalanx of right great toe, initial encounter for closed fracture Nonrheumatic mitral (valve) insufficiency Obesity Obstructive sleep apnea On home O2 Renal insufficiency Secondary pulmonary arterial hypertension Type 2 diabetes mellitus Home Medications bupropion HCl 300 mg 24 hr tablet, extended release 300 mg PO QHS depression 09/02/20 [History Last Taken 10/13/21] cholecalciferol (vitamin D3) 50 mcg (2,000 unit) capsule (Vitamin D3) 50 mcg PO DAILY supplement 09/02/20 [History Last Taken 10/14/21 09:30] fluticasone furoate 100 mcg-vilanterol 25 mcg/dose inhalation powder (Breo Ellipta) 1 inh inhalation DAILY breathing 09/02/20 [History Last Taken 10/14/21] fluticasone propionate 50 mcg/actuation nasal spray,suspension 1 spray intranasal DAILY PRN Allergies 09/02/20 [History Last Taken 09/02/20] furosemide 80 mg tablet 80 mg PO DAILY water pill 09/02/20 [History Last Taken 10/14/21] levothyroxine 88 mcg tablet 88 mcg PO DAILY thyroid 09/02/20 [History Last Taken 10/14/21] lorazepam 1 mg tablet 1 mg PO QHS anxiety 09/02/20 [History Last Taken 10/13/21] montelukast 10 mg tablet 10 mg PO DAILY allergies 09/02/20 [History Last Taken 10/14/21] trazodone 100 mg tablet 100 mg PO QHS sleep 09/02/20 [History Last Taken 10/13/21] aspirin 81 mg tablet,delayed release (Adult Aspirin Regimen) 81 mg PO DAILY heart 05/17/21 [History Last Taken 10/14/21 09:30] amlodipine 10 mg tablet 10 mg PO DAILY bp 08/25/21 [History Last Taken 10/14/21 09:30] gabapentin 100 mg capsule (Neurontin) 100 mg PO TID nerve pain 08/25/21 [History Last Taken 10/14/21] dulaglutide 0.75 mg/0.5 mL subcutaneous pen injector (Trulicity) 0.75 mg subcut QWEEK dm 09/02/21 [History Last Taken 10/10/21] insulin detemir U-100 100 unit/mL (3 mL) subcutaneous pen 37 unit subcut QHS blood sugar 09/02/21 [History Last Taken 10/13/21] insulin lispro 100 unit/mL subcutaneous pen See Protocol subcut QACHS blood sugar 09/02/21 [History Last Taken 10/14/21] ipratropium 0.5 mg-albuterol 3 mg (2.5 mg base)/3 mL nebulization soln 3 ml inhalation BID PRN sob 09/02/21 [History Last Taken Unknown] paroxetine HCl 30 mg tablet 60 mg PO QHS mental health 09/02/21 [History Last Taken 10/13/21] hydrocodone-acetaminophen 5-325mg 5mg-325mg 1 tab PO Q6H PRN pain 3 days #12 tabs 10/02/21 [Rx Last Taken 10/14/21] atorvastatin 80 mg tablet 80 mg PO QHS Cholestrol 10/22/21 [History Last Taken Unknown] carvedilol 6.25 mg tablet 6.25 mg PO BID BP 10/22/21 [History Last Taken Unknown] cephalexin 500 mg capsule 500 mg PO Q8 Antibiotic 10/22/21 [History Last Taken Unknown] nystatin 100,000 unit/mL oral suspension 500,000 unit PO 4X/DAY Thrush 10/22/21 [History Last Taken Unknown] pantoprazole 40 mg tablet,delayed release 40 mg PO BID GERD 10/22/21 [History Last Taken Unknown] prednisone 20 mg tablet 40 mg PO BREAKFAST Steroid 10/22/21 [History Last Taken Unknown] Allergy/AdvReac Type Severity Reaction Status Date / Time Sulfa (Sulfonamide Allergy Anaphylaxis Verified 10/14/21 10:12 Antibiotics) sulfur dioxide Allergy Anaphylaxis Verified 10/14/21 10:12 Family History Grandmother Diabetes Mother Heart disease Surgical History H/O right heart catheterization History of cataract surgery History of coronary artery stent placement (02/24/17) Tubal ligation status Social History household members: none housing: other details: [facility]. Smoking Status: Former smoker how long ago did patient quit smokin alcohol intake: former year quit: 1999 substance use type: does not use caffeine: Yes Type: carbonated beverages and tea ROS ROS ED Constitutional Constitutional ED: Denies chills, fever(s) or sweats Eyes Eyes: Denies change in vision ENT ENT ED: Denies dysphagia or sore throat Cardiovascular Cardiovascular: Denies chest pain, leg edema, palpitations or racing heartbeat Respiratory/Chest Respiratory/Chest: Denies cough, dyspnea or dyspnea on exertion Gastrointestinal Gastrointestinal: Denies abdominal pain, diarrhea, nausea or vomiting Genitourinary Genitourinary ED: Denies dysuria, hematuria or urinary frequency Musculoskeletal Musculoskeletal: Denies back pain, extremity pain or neck pain Integumentary Denies rash or wounds Neurologic Neurologic: Denies headache(s), paresthesias or weakness EXAM Physical Exam Const Vital Signs: 11/01/21 22:11 11/01/21 22:17 11/01/21 22:17 Temperature 97.1 F L 97.8 F Temperature Source Oral Temporal Pulse Rate 83 22 L Respiratory Rate 20 H 17 Blood Pressure 151/68 H 140/44 H Blood Pressure Mean 95 76 Pulse Ox 91 93 Oxygen Delivery Method Room Air Room Air Oxygen Flow Rate (L/min) 11/01/21 22:55 Temperature Temperature Source Pulse Rate Respiratory Rate Blood Pressure Blood Pressure Mean Pulse Ox 94 Oxygen Delivery Method Nasal Cannula Oxygen Flow Rate (L/min) 3 Positive well nourished Constitutional Narrative: Stable on 3 L nasal cannula. Nontoxic. GCS 15. HEENT Reports moist mucous membranes normocephalic and atraumatic Eyes PERRL, EOMs intact bilaterally and conjunctivae normal General Eye ED: Yes normal appearance of both eyes Neck no lymphadenopathy and supple General: Negative for tenderness Chest Wall Chest: Negative for tenderness Resp normal respiratory effort and normal air movement Effort and Inspection: symmetric chest movement; Negative for respiratory distress Cardio regular rate, regular rhythm and no murmurs Peripheral Pulses: pulses 2+ throughout GI normal to inspection, nondistended, normoactive bowel sounds and non-tender Palpation: Negative for guarding or rebound tenderness present Back/Spine no CVA tenderness and no thoracic nor lumbar tenderness Extremity normal to inspection General Extremety ED: Negative for edema or tenderness General Extremity: Negative for edema Neuro oriented x3 and no sensory deficits noted Sensorium / Orientation: awake and alert Skin Skin Narrative: Dressing to left foot clean, dry intact. Marked changed today. MDM MDM MDM Narrative Medical decision making narrative: Patient alert and oriented x3 on arrival. No signs of head injury. She reports she was groggy when they woke her up. Vital stable. Glucose 140s. I checked labs and urine. Stable anemia stable CKD urine with 25 leukocytes. She denies any urinary symptoms. I sent for culture. Remains clinically stable on reevaluation. Reviewing records notes her Proteus bacteremia is appropriately treated. She is afebrile. She is discharged back to TCU. Lab Data Attestation: I reviewed the patient's lab results. Labs: Laboratory Results - last 24 hr 11/01/21 11/01/21 11/01/21 22:13 22:35 22:35 WBC 6.3 RBC 2.80 L Hgb 8.0 L Hct 26.5 L MCV 94.6 MCH 28.6 MCHC 30.2 L RDW Std Deviation 53.7 H RDW Coeff of Magen 15.7 H Plt Count 131 L MPV 11.1 Immature Gran % (Auto) 0.500 Neut % (Auto) 76.2 H Lymph % (Auto) 13.3 L [place] % (Auto) 7.1 Eos % (Auto) 2.4 Baso % (Auto) 0.5 Absolute Neuts (auto) 4.8 Absolute Lymphs (auto) 0.84 Nucleated RBC % 0 Sodium 143 Potassium 4.0 Chloride 103 Carbon Dioxide 34.0 H Anion Gap 6 BUN 52 H Creatinine 1.33 H Estim Creat Clear Calc 37.95 Est GFR (MDRD) Af Amer 51 L Est GFR (MDRD) Non-Af 43 L BUN/Creatinine Ratio 39.1 H Glucose 141 H Calcium 9.8 Urine Color Urine Clarity Urine pH Ur Specific [place] Urine Protein Urine Glucose (UA) Urine Ketones Urine Occult Blood Urine Nitrite Urine Bilirubin Urine Urobilinogen Ur Leukocyte Esterase Urine RBC Urine WBC Ur Squamous Epith Cells Urine Bacteria Urine Mucus POC Glucose 126 H 11/01/21 23:50 WBC RBC Hgb Hct MCV MCH MCHC RDW Std Deviation RDW Coeff of Magen Plt Count MPV Immature Gran % (Auto) Neut % (Auto) Lymph % (Auto) [place] % (Auto) Eos % (Auto) Baso % (Auto) Absolute Neuts (auto) Absolute Lymphs (auto) Nucleated RBC % Sodium Potassium Chloride Carbon Dioxide Anion Gap BUN Creatinine Estim Creat Clear Calc Est GFR (MDRD) Af Amer Est GFR (MDRD) Non-Af BUN/Creatinine Ratio Glucose Calcium Urine Color Yellow Urine Clarity Clear Urine pH 6.0 Ur Specific [place] 1.010 Urine Protein Negative Urine Glucose (UA) Normal Urine Ketones Negative Urine Occult Blood 150 H Urine Nitrite Negative Urine Bilirubin Negative Urine Urobilinogen Normal Ur Leukocyte Esterase 25 H Urine RBC 0-5 SEEN Urine WBC 0 SEEN Ur Squamous Epith Cells 0 SEEN Urine Bacteria RARE Urine Mucus 0 SEEN POC Glucose EKG Initial EKG: Attestation: I personally reviewed and interpreted this EKG as follows: Comments: Sinus rate of 83, no ST or T wave changes. Discharge Plan Triage Chief Complaint: Alt LOC ED Provider: Orlin Roger Dx/Rx/DC Orders Clinical Impression: Transient confusion, Anemia, CKD (chronic kidney disease) Instructions: Anemia, CKD Dc, ED Confusion Prescriptions: No Action aspirin [Adult Aspirin Regimen] 81 mg tablet,delayed release (DR/EC) 81 mg PO DAILY Trulicity 0.75 mg/0.5 mL pen injector 0.75 mg subcut QWEEK Label Comments: 0.5 ML (0.75MG) SQ EVERYMWEEK DX:X Rx Instructions: pt takes on mondays PT TO BRING IN OWN MEDICATION levothyroxine 88 mcg Tablet 88 mcg PO DAILY furosemide 80 mg Tablet 80 mg PO DAILY trazodone 100 mg Tablet 100 mg PO QHS montelukast 10 mg Tablet 10 mg PO DAILY lorazepam 1 mg Tablet 1 mg PO QHS fluticasone propionate 50 mcg/actuation [place],Suspension 1 spray INTRANASAL DAILY PRN (Reason: Allergies) bupropion HCl 300 mg Tablet Extended Release 24 Hr 300 mg PO QHS cholecalciferol (vitamin D3) [Vitamin D3] 50 mcg (2,000 unit) Capsule 50 mcg PO DAILY fluticasone furoate-vilanterol [Breo Ellipta] 100-25 mcg/dose Blister With Device 1 inh INHALATION DAILY ipratropium-albuterol 0.5 mg-3 mg(2.5 mg base)/3 mL solution for nebulization 3 ml INHALATION BID PRN (Reason: sob) insulin lispro 100 unit/mL insulin pen See Protocol SUBCUT QACHS Protocol: 6. Sliding Scale Insulin Custom Condition: 151-175 Dose/Route: 5 Condition: 176-200 Dose/Route: 7 Condition: 201-250 Dose/Route: 9 Condition: 251-300 Dose/Route: 11 Condition: 301-350 Dose/Route: 13 Condition: 351-400 Dose/Route: 15 Condition: 401-450 Dose/Route: 19 Protocol Text: Custom Sliding Scale Rx Instructions: 10 units plus sliding scale. SEE SLIDING SCALE paroxetine HCl 30 mg tablet 60 mg PO QHS insulin detemir U-100 100 unit/mL (3 mL) insulin pen 37 unit SUBCUT QHS amlodipine 10 mg Tablet 10 mg PO DAILY gabapentin [Neurontin] 100 mg Capsule 100 mg PO TID hydrocodone-acetaminophen 5-325 mg tablet 1 tab PO Q6H PRN (Reason: pain) 3 Days Qty: 12 0RF atorvastatin 80 mg tablet 80 mg PO QHS carvedilol 6.25 mg tablet 6.25 mg PO BID cephalexin 500 mg capsule 500 mg PO Q8 nystatin 100,000 unit/mL suspension 500,000 unit PO 4X/DAY prednisone 20 mg tablet 40 mg PO BREAKFAST pantoprazole 40 mg tablet,delayed release (DR/EC) 40 mg PO BID Primary Care Provider: Froy Gonzales Referrals: Froy Gonzales MD [Primary Care Provider] - 3-5 Days Activity Restrictions/Additional Instructions: A AND O x3. No complaints. Work-up stable anemia with stable CKD. urine notes 25 leukocytes, culture sent and pending. Disposition Disposition: Home, Self Care Discharge Date/Time: 11/02/21 00:46
[2021-11-01 22:35] LABS: Bedside Glucose 126 mg/dL (74-106)
[2021-11-01 22:55] VITALS: O2SAT 94
[2021-11-01 22:57] LABS: Absolute Lymphocyte Count 0.84 X10^3/uL (0.83-4.51); Absolute Neutrophil Count 4.8 X10^3/uL (2.0-7.7); Basophil# 0.03 X10^3/uL; Basophil% 0.5 % (0-1); Eosinophil# 0.15 X10^3/uL; Eosinophils% 2.4 % (0-5); Hematocrit 26.5 % (37-47); Lymphocyte # 0.84 X10^3/ul (0.83-4.51); Lymphocyte % 13.3 % (19-41); Mean Corp Hgb Conc 30.2 g/dL (32-36); Mean Corpuscular Hgb 28.6 pg (27.0-32.0); Mean Corpuscular Volume 94.6 fL (81-99); Mean Platelet Vol. 11.1 fl (6.2-12.0); Monocyte# 0.45 X10^3/uL; Monocyte% 7.1 % (0-10); NRBC Flagged by Analyzer 0 % (0-5); Neutrophil # 4.83 X10^3/uL (2.7-7.7); Neutrophil % 76.2 % (47-70); Platelet Count 131 K/mm3 (150-450); RBC Distribution Width CV 15.7 % (11.6-14.6); RBC Distribution Width SD 53.7 fl (35.1-43.9); White Blood Count 6.3 K/mm3 (4.4-11.0)
[2021-11-01 23:14] LABS: Anion Gap 6 (5-15); BUN 52 mg/dL (7-18); BUN/Creat Ratio 39.1 RATIO (10-20); Calcium,Total 9.8 mg/dL (8.5-10.1); Chloride 103 mmol/L (98-107); Creatinine, Serum 1.33 mg/dL (0.55-1.02); EST Glomerular Filtration Rate 43 mL/min (>60); Est Glom Filt Rate - Afr Amer 51 mL/min (>60); Estimated Creatinine Clearance 37.95 ml/min; Glucose 141 mg/dL (74-106); Sodium Level 143 mmol/L (136-145)
[2021-11-01 23:56] LABS: Color, Urine Yellow (Yellow); Glucose, Dipstick Normal (Normal); Ketone-Dipstick Negative (Negative); Leukocyte Esterase-Dipstick 25 /ul (Negative); Mucous, Urine 0 SEEN /hpf (<or=2+); Nitrite-Dipstick Negative (Negative); Occult Blood-Urine 150 /ul (Negative); Protein-Dipstick Negative (Negative); Squamous Epithelial Cells - UA 0 SEEN /hpf (5-10); Urine Bilirubin Dipstick Negative (Negative); Urine Clarity Clear (Clear); Urine Urobilinogen Normal (Normal); White Blood Cells 0 SEEN /hpf (0-5)
[2021-11-02 00:06] LABS: Bacteria RARE /hpf (None Seen); Red Blood Cells-Urine 0-5 SEEN /hpf (0-5)
== END 2021-11-02 00:46 | disposition skilled nursing facility (03) ==
PROVIDERS: Emergency Provider Emergency Medicine; PCP Family Medicine; Visit Provider Emergency Medicine
DX: R41.0 Disorientation, unspecified (principal); Z89.412 Acquired absence of left great toe; J44.9 Chronic obstructive pulmonary disease, unspecified; I13.0 Hypertensive heart and chronic kidney disease with heart failure and stage 1 through stage 4 chronic kidney disease, or unspecified chronic kidney disease; I50.32 Chronic diastolic (congestive) heart failure; I27.21 Secondary pulmonary arterial hypertension; E11.22 Type 2 diabetes mellitus with diabetic chronic kidney disease; E11.42 Type 2 diabetes mellitus with diabetic polyneuropathy; J96.11 Chronic respiratory failure with hypoxia; I25.10 Atherosclerotic heart disease of native coronary artery without angina pectoris; N18.9 Chronic kidney disease, unspecified; E78.5 Hyperlipidemia, unspecified; D64.9 Anemia, unspecified; G47.33 Obstructive sleep apnea (adult) (pediatric); E66.9 Obesity, unspecified; I25.2 Old myocardial infarction; Z79.82 Long term (current) use of aspirin; Z79.84 Long term (current) use of oral hypoglycemic drugs; Z99.81 Dependence on supplemental oxygen; Z79.899 Other long term (current) drug therapy; Z87.891 Personal history of nicotine dependence; Z95.5 Presence of coronary angioplasty implant and graft
CPT/HCPCS: 99282; 80048; 81001; 82962; 85025; 87086; 93005; A4216

== ENCOUNTER → 2021-11-02 | Outpatient (CLI) | payer MEDICARE, MEDICAID, SELFPAY ==
--- NOTE | 2021-11-02 14:04 | CT_ITS ---
STUDY: CTA CHEST REASON FOR EXAM: Female, 66 years old. R/O PE. Shortness of breath. Recent toe amputation. RADIATION DOSAGE (If Supplied By Facility): CTDIvol = ( 16.12 ) mGy, DLP = ( 580.50 ) mGycm TECHNIQUE: The examination was performed with the intravenous administration of IV 100mL Isovue-370. Post-processing of the angiographic images was performed, with multiplanar reformation and 3D reconstruction. Individualized dose optimization techniques were used for this CT. COMPARISON: None. FINDINGS: Normal enhancement of the main pulmonary artery and right and left pulmonary arteries. Normal enhancement of the bilateral peripheral pulmonary arteries. There is no demonstrated pulmonary embolism. Normal thoracic aorta and visualized great vessels. There is no demonstrated aortic dissection. There are calcifications of the coronary arteries. Normal mediastinum. Normal hilar regions. Normal visualized trachea and bronchi. The lungs are well expanded. Small bilateral pleural effusions with patchy bilateral pulmonary infiltrates involving the upper and lower lobes bilaterally. Diffuse bilateral pneumonia should be ruled out. Follow-up is recommended. Normal chest wall structures. There are degenerative changes of thoracic spine. Normal visualized upper abdomen. CT/CTA Chest W/WO Contrast IMPRESSION: No evidence of pulmonary embolism Diffuse bilateral pulmonary infiltrates as described. Pneumonic infiltrate should be ruled out. Small bilateral pleural effusions. Electronically Signed: Butch Ling MD at 14:57 EDT ,
== END | disposition home or self-care (01) ==
LOC: CT 14:02
PROVIDERS: PCP Family Medicine; Referring Provider Family Medicine Geriatric Medicine; Visit Provider Family Medicine Geriatric Medicine
DX: I26.99 Other pulmonary embolism without acute cor pulmonale (principal)
CPT/HCPCS: 71275; Q9967

== ENCOUNTER 2021-11-03 08:02 | Inpatient (IN) | payer MEDICARE, MEDICAID, SELFPAY ==
[2021-11-03] VITALS (18 sets, daily range): BP systolic 116–148; BP diastolic 54–102; PULSE 91–103; RESP 12–30; TEMP 36.1–36.8; O2SAT 92–99; BMI 41.0; BMI 40.0
--- NOTE | 2021-11-03 08:04 | EKG12_ITS ---
Test Reason : SOB Blood Pressure : / mmHG Vent. Rate : 098 BPM Atrial Rate : 098 BPM P-R Int : 176 ms QRS Dur : 084 ms QT Int : 376 ms P-R-T Axes : 072 068 011 degrees QTc Int : 480 ms Sinus rhythm with Premature atrial complexes Otherwise normal ECG Confirmed by HEYDI ROSS, GODWIN ([id number]), movie editor JASON PEREIRA ([id number]) on 11/07/2021 10:41:03 AM Referred By: DEBBIE Confirmed By:GODWIN SOLIZ MD
--- OUTSIDE RECORDS SUMMARY | 2021-11-03 08:06 | XMS RPT_ITS | CCD ---
:1955 Author Organization [facility] Care Team Providers Name Role Phone CHEPE BALLESTEROS Admitting Unavailable MARY DIAZ Attending Unavailable Augie Romero Unavailable Augie Mccrary Unavailable Unavailable Zena Coronado Unavailable Unavailable Augie Romero MD Unavailable Unavailable Augie Romero Unavailable Unavailable Zena Coronado MD Unavailable Unavailable Allergies Allergy Reported Allergy Type Date of Reaction(s) Facility Classification Allergen(s) Onset HMG-CoA Reductase Inhibitors (statins) atorvastatin Drug Allergy Myalgia [facility] (1 source) Work Phone: Sulfonamides (antibiotic) Sulfonamides Drug Allergy [facility] (2 sources) (Antibiotic); Work Phone : Translations: [Sulfa Drugs] atorvastatin; Drug Allergy Myalgia [facility] (5 sources) Translations: 8 [facility] [ATORVASTATIN] [facility] Doxycycline; Drug Allergy [facility] (1 source) Translations: [facility] [DOXYCYCLINE] [facility] Latex; Propensity to [facility] (1 source) Translations: adverse [facility] [LATEX] reactions to [facility] (disorder) Sulfonamides Propensity to [facility] (1 source) (Antibiotic); adverse 0 [facility] Translations: reactions to [facility] [SULFA drug Repository (SULFONAMIDE (disorder) ANTIBIOTICS)] SULFATE SALT; Propensity to [facility] (1 source) Translations: adverse 7 [facility] [SULFATE SALT] reactions to [facility]ository (disorder) Sulfonamides Allergy to [facility] (4 sources) (Antibiotic) drug (finding) Work Ph one: Sulfonamides Allergy to [facility] (4 sources) (Antibiotic) drug (finding) Work Ph one: Medications Completed/Discontinued Medications Medication Drug Class(es) Dates Sig (Normalized) Sig (Orig inal) [id number] actuat albuterol 0.09 mg/actuat metered d ose inhaler beta2-Adrenergic Start: Albuterol Sulfate (8 sources) Agonist 07-13-2019 HFA 108 (90 Bas e) MCG/ACT Inhalat ion Aerosol Solutio n TO TAKE NEED ED Quantity: 1 Refills: 0 Augie Tijerina MD Sta rt : 13-Jul-2019 Active 18 GM Inhaler Start: 08-28-2016 Ventolin HFA 108 (90 Base) MCG/ACT Inhalation Aerosol Solution pt takes as needed Curtis tity: 1 Refills: 0 Augie Romero MD Start : 28-Aug-2016 Active 8 GM Inhaler Start: 08-28-2016 Ventolin HFA 108 (90 Base) MCG/ACT Inhalation Aerosol Solution pt takes as needed Curtis tity: 1 Refills: 0 Augie Romero MD Start : 28-Aug-2016 Active 8 GM Inhaler Start: 08-28-2016 Ventolin HFA 108 (90 Base) MCG/ACT Inhalation Aerosol Solution pt takes as needed Refi lls: 0 Start : 28-Aug-2016 Active aspirin 81 mg delayed release oral tablet Platelet Aggregation Star t: take 1 Aspirin EC Low (5 sources) Inhibitor, 2017 tablet by Dose 81 MG Oral Nonsteroidal mouth once Tablet Delayed Anti-inflammatory Drug daily Relea se Take 1 tablet by mouth once daily. Quantity: 30 Refills: 0 Star t : 24-Feb-2017 Active atorvastatin 80 mg oral tablet HMG-CoA Reductase take 1 Atorvastatin (5 sources) Inhibitor tablet by Calcium 80 MG mouth once Oral Tablet YAMILET E daily 1 TABLET DAILY. Quantity: 30 Refills: 0 Augie Tijerina MD Active 24 hr buPROPion hydrochloride 300 mg extended release oral t ablet Aminoketone Start: take 1 buPROPion HCl ER (5 sources) 07-06-2017 tablet by (XL) 300 MG Ora l mouth once Tablet Extended daily Release 24 Hour TAKE 1 TABLET B Y MOUTH EVERY DAY Quantity: 30 Refills: 0 Augie Tijerina MD Sta rt : 06-Jul-2017 Active Easy Touch Lancing Device Start: Ea sy Touch (4 sources) 06-06-2013 Lancing Device Quantity: 1 Refills: 0 Star t : 06-Jun-2013 Active Easy Touch Lancing Device Start: Wicho weber Touch (1 source) 06-06-2013 Lancing Device Quantity: 1 Refills: 0 Star t : 06-Jun-2013 Active fluticasone propionate 0.05 mg/actuat metered dose nasal spr ay Corticosteroid Start: take 1-2 Fluticasone (5 sources) 12-12-2016 spray(s) Propionate 50 nasal route MCG/ACT Nasal once daily Suspension USE at bedtime 1-2 SPRAYS IN EACH NOSTRIL DAILY AT BEDTIM E. Quantity: 30 Refills: 0 Augie Tijerina MD rt : 12-Dec-2016 Active 16 GM Bottle Start: 12-12-2016 take 1 spray(s) nasal route once Flutica sone Propionate 50 MCG/ACT daily at bedtime Nasal Suspension USE 1 SPRAY IN EACH NOSTRIL DAILY A T BEDTIME. Quantity: 1 Refills: 11 Augie Romero MD Start : Active 16 GM Bottle 30 actuat fluticasone furoate 0.1 mg/act uat / vilanterol 0.025 mg/actuat dry powder inhaler Corticosteroid, Start: Breo Ellipta (5 sources) beta2-Adrenergic 12-12-2016 100-25 MCG/ INH Agonist Inhalation Aero sudeep Powder Breath Activated USE 1 INHALATION ONCE DAILY. Refills: 0 Start : 12-Dec-2016 Act luann 28 Each Pack furosemide 80 mg oral tablet Loop Diuretic Start: take 1 Furosemide 80 MG (5 sources) 08-14-2014 tablet by Oral Tablet yamilet e 1 mouth twice tablet by mouth daily twice a day Quantity: 60 Refills: 0 Augie Tijerina MD rt : 14-Aug-2014 Active levothyroxine sodium 0.088 mg oral tablet l-Thyroxine Start: take 1 Levothyroxine (5 sources) 03-23-2015 tablet by Sodium 88 MCG O ral mouth once Tablet TAKE 1 daily TABLET DAILY. Quantity: 30 Refills: 0 Augie Tijerina MD Sta rt : 23-Mar-2015 Active lisinopril 10 mg oral tablet Angiotensin Start: take 1 Lisinopril 10 MG (5 sources) Converting Enzyme 02-07-2015 tablet by Oral Table t Take 1 Inhibitor mouth once tablet daily daily Quantity: 30 Refills: 0 Augie Tijerina MD Sta rt : 07-Feb-2015 Active LORazepam 1 mg oral tablet Benzodiazepine Start: take 1 LORazepam 1 MG (5 sources) 02-01-2019 tablet by Oral Tablet YAMILET E 1 mouth at TABLET AT BEDTI ME, bedtime as AND 1/2 TAB DUR ING needed, then THE DAY NEED ED take 0.5 Quantity: 40 tablet by Refills: 0 Mikeyl e mouth once Augie ROSS rt daily as : 01-Feb-2019 needed Active 24 hr metoprolol succinate 50 mg extended release oral table t beta-Adrenergic Start: take 1 Metoprolol (5 sources) Matthew 05-25-2020 tablet by Succinate ER 50 MG mouth once Oral Tablet daily Extended Releas e 24 Hour TAKE 1 TABLET BY MOUTH ONCE DAILY. Quantity: 90 Refills: 0 Augie Tijerina MD rt : 25-May-2020 Active take 1 tablet by mouth once daily Metopr olol Succinate ER 50 MG Oral Tablet Extended Release 24 Hour (Disregard prescription for carvedilol, meto prolol, is what she needs) take 1 tablet by geovanni th once daily Quantity: 30 Refills: 11 Augie Romero MD Active montelukast 10 mg oral tablet Leukotriene Start: take 1 tabl et by Montelukast Sodium (5 sources) Receptor 06-27-2017 mouth at bedtime 10 MG Oral Tablet Antagonist TAKE 1 TABLET A T BEDTIME. Quanti ty: 30 Refills: 0 Augie Romero MD Start : 018 Active nitroglycerin 0.4 mg sublingual tablet Nitrate Start: Nitroglycerin 0.4 (5 sources) Vasodilator 02-27-2017 MG Sublingual Tablet Sublingu al Quantity: 25 Refills: 0 Star t : 27-Feb-2017 Acti ve OneTouch Ultra Blue STRP Start: One Touch Ultra (4 sources) 06-12-2012 Blue STRP Quantity: 255 Refills: 0 Star t : 12-Jun-2012 Act luann OneTouch Ultra Blue STRP Start: One Touch Ultra (1 source) 06-12-2012 Blue STRP Quantity: 255 Refills: 0 Star t : 12-Jun-2012 Act luann OneTouch Ultra Mini w/Device Kit Start: OneTouch Ultra (4 sources) 06-06-2013 Mini w/Device K it Quantity: 1 Refills: 0 Star t : 06-Jun-2013 Act luann OneTouch Ultra Mini w/Device Kit Start: OneTouch Ultra (1 source) 06-06-2013 Mini w/Device K it Quantity: 1 Refills: 0 Star t : 06-Jun-2013 Act luann OptiCadamber Hannah Start: OptiCham oanh (4 sources) 12-12-2016 Hannah USE WIT H INHALER DIRECTED. Quantity: 1 Refills: 0 Star t : 12-Dec-2016 Act luann OptiChamber Hannah Start: OptiCham oanh (1 source) 12-12-2016 Hannah USE WIT H INHALER DIRECTED. Quantity: 1 Refills: 0 Star t : 12-Dec-2016 Act luann PARoxetine hydrochloride 30 mg oral tablet Serotonin Start: take 2 tablets by PARoxetine HCl - (5 sources) Reuptake 02-07-2015 mouth once daily 30 MG Oral Tablet Inhibitor take 2 tablets by mouth every day Quantity: 60 Refills: 0 Augie Tijerina MD Sta rt : 07-Feb-2015 Active polyethylene glycol 3350 82834 mg powder for oral solution O smotic Laxative Start: SB Polyethylene (5 sources) 01-31-2018 Glycol 3350 17 GM/SCOOP Oral Powder FILL DOS ING CUP TO MARKED L INE (17 GRAMS) THEN MIX WITH 8 OUNC ES OF FLUIDS AND DRINK DAILY DIRECTED, NEEDED Quantity : 1 Refills: 1 Augie Tijerina MD Sta rt : 31-Jan-2018 Active 255 GM Bottle insulin, regular, human 500 unt/ml injectable solution Insulin inject 0.8 mL by HumuLIN R U-500 (5 sources) subcutaneous (CONCENTRATED) 500 injection at UNIT/ML breakfast, then Subcutaneous inject 0.9 mL by Solution in ject subcutaneous 0.8ML at injection at breakfast, 0.9M L lunch, then at lunch if eat en, inject 0.44 mL by 0.44ML at dinner subcutaneous Quantity: 1 injection at Refills: 0 Augie Lomax MD Act luann 20 ML Vial traZODone hydrochloride 100 mg oral tablet Serotonin Start: take 1 tablet by traZODone HCl - (5 sources) Reuptake 05-25-2020 mouth once daily 100 MG Oral Tablet Inhibitor at bedtime TAKE 1 TABLET B Y MOUTH EVERYDAY AT BEDTIME Quantit y: 90 Refills: 1 Augie Romero MD Start : 25-May-2020 Act luann Start: 09-20-2012 take 1 tablet by mouth once traZODone HC l - 100 MG Oral Tablet daily at bedtime TAKE 1 TABLET BY GEOVANNI TH EVERYDAY AT BEDTIME Quantity: 90 Refills: 3 Augie Romero MD art : 20-Sep-2012 Active Problems Active Problems Problem Classification Problem Date Documented Date Ep isodic/Chronic Abdominal pain Lower abdominal pain, Onset: Epis odic (1 source) unspecified; 04-18-2018 Translations: [Lower abdominal pain, unspecified] Acute myocardial infarction Myocardial Chronic (5 sources) infarction; Translations: [Acute myocardial infarction of unspecified site, episode of care unspecified] Anxiety disorders Anxiety disorder; Chron ic (5 sources) Translations: [Anxiety state, unspecified] Asthma Asthma; Translations: Chroni c (10 sources) [Exacerbation of asthma] Coronary atherosclerosis and other heart disease Coronary Chronic (5 sources) arteriosclerosis; Translations: [Coronary atherosclerosis of unspecified type of vessel, enterprise or graft] Deficiency and other anemia Anemia; Translations: Episodic (5 sources) [Anemia, unspecified] Diabetes mellitus without complication Type 2 diabetes Chronic (5 sources) mellitus; Translations: [Diabetes mellitus without mention of complication, type II or unspecified type, not stated as uncontrolled] Diseases of white blood cells Elevated white blood Onset: Chronic (1 source) cell count, 04-18-2018 unspecified; Translations: [Elevated white blood cell count, unspecified] Disorders of lipid metabolism Hyperlipidemia; Chronic (5 sources) Translations: [Other and unspecified hyperlipidemia] Diverticulosis and diverticulitis Diverticulitis of Onset: Chronic (6 sources) intestine, part 04-21-2018 unspecified, without perforation or abscess without bleeding; Translations: [Diverticulitis of sigmoid colon] Essential hypertension Benign essential C hronic (5 sources) hypertension; Translations: [Benign essential hypertension] Fluid and electrolyte disorders Hypokalemia; Onset: Episodic (1 source) Translations: 04-18-2018 [Hypokalemia] Immunizations and screening for infectious disease Immunization due ; Episodic (1 source) Translations: [Need for prophylactic vaccination and inoculation against unspecified single disease] Mood disorders Depressive disorder; Chron ic (5 sources) Translations: [Depressive disorder, not elsewhere classified] Nausea and vomiting Nausea with vomiting, Onset: Episodic (1 source) unspecified; 04-18-2018 Translations: [Nausea with vomiting, unspecified] Other aftercare Patient encounter Episodi c (4 sources) status; Translations: [Long-term (current) use of other medications] Other aftercare Post-discharge Episodic (1 source) follow-up; Translations: [Other follow-up examination] Other aftercare Long-term current use Epi sodic (1 source) of drug therapy; Translations: [Long-term (current) use of other medications] Other aftercare Drug therapy finding; Epi sodic (1 source) Translations: [Long-term (current) use of other medications] Other circulatory disease H/O: heart disorder; Episodic (5 sources) Translations: [Personal history of other diseases of circulatory system] Other diseases of veins and lymphatics Disorder of vein of Episodic (5 sources) lower extremity; Translations: [Varicose veins of lower extremities with inflammation] Other endocrine disorders Hypoglycemia, Onset: C hronic (1 source) unspecified; 04-18-2018 Translations: [Hypoglycemia, unspecified] Other gastrointestinal disorders Diarrhea, Onset: Episodic (1 source) unspecified; 04-18-2018 Translations: [Diarrhea, unspecified] Other gastrointestinal disorders Constipation; Episodic (5 sources) Translations: [Constipation, unspecified] Other lower respiratory disease H/O: respiratory Episodic (5 sources) disease; Translations: [Personal history of other diseases of respiratory system] Other lower respiratory disease H/O: bronchitis; Episodic (5 sources) Translations: [Personal history of other diseases of respiratory system] Other lower respiratory disease Hypoxia; Episodic (5 sources) Translations: [Hypoxemia] Other lower respiratory disease History of chronic Episodic (5 sources) obstructive airway disease; Translations: [Personal history of other diseases of respiratory system] Other skin disorders Personal history of Episodic (5 sources) diseases of the skin and subcutaneous tissue; Translations: [History of pressure ulcer] Other skin disorders Acne; Translations: Episodic (5 sources) [Other acne] Other upper respiratory disease Allergic rhinitis; Chronic (5 sources) Translations: [Allergic rhinitis due to other allergen] Residual codes; unclassified Obstructive sleep Chronic (5 sources) apnea syndrome; Translations: [Obstructive sleep apnea (adult)(pediatric)] Residual codes; unclassified Insomnia; Episodic (5 sources) Translations: [Insomnia, unspecified] Residual codes; unclassified History of clinical Episodic (2 sources) finding in subject; Translations: [Personal history of other specified diseases] Screening and history of mental health and substance a buse codes H/O: depression; Episodic (5 sources) Translations: [Personal history of other mental disorders] Skin and subcutaneous tissue infections Cellulitis; Episodic (5 sources) Translations: [Cellulitis and abscess of unspecified sites] Spondylosis; intervertebral disc disorders; other back probl ems Degeneration of Chronic (10 sources) lumbar intervertebral disc; Translations: [Intervertebral disc prolapse] Thyroid disorders Hypothyroidism; Chronic (5 sources) Translations: [Unspecified acquired hypothyroidism] Past or Other Problems Problem Classification Problem Date Documented Date Ep isodic/Chronic Other aftercare Post-discharge (4 sources) follow-up; Translations: [History of Hospital discharge follow-up] Residual codes; unclassified Immunization due; (4 sources) Translations: [History of Immunization due] Unclassified Drug therapy finding; (4 sources) Translations: [History of Opiate analgesic use agreement exists] Unclassified History of clinical (8 sources) finding in subject; Translations: [History of edema] Unclassified Patient encounter (16 sources) status; Translations: [History of Colon cancer screening] Unclassified Long-term current use (4 sources) of drug therapy; Translations: [History of care home current use of opiate analgesic] NEGATED: Highlighted row has not occurred!Residual codes; unclas sified Disease Episodic (20 sources) Results Test Name Value Interpretation Reference Range Facility OBSOLETE on 05-27-2020 OBSOLETE Refill (AGCARDPOB) Normal [facility] MONIQUE Cramer ([id number]) 1955 F Medical Date Time Provider Department Center 05/27/20 IVON NEWELLARDRACQUEL During your visit today, we recorded the following inf ormation about you: Allergies As of Date: 05/27/2020 Noted Allergy Reactio n SULFA (SULFONAMIDE ANTIBIOTICS) 02/11/2010 7 - Swekenin g Comments: Throat swelling DOXYCYCLINE 10/19/2014 4 - Hives 12 - Shortness of Breath LATEX 11/11/2014 14 - Other: See Comments Comments: Pt voices blistering on her hands after wear ing gloves. Pt's legs are beet red after removing tubigrip. LIPITOR (ATORVASTATIN) 09/25/2017 14 - Other: See Comm ents Comments: Aching SULFATE SALT 05/16/2016 7 - Swelling Date Reviewed: 12/23/2019 Reviewed by: Radha Branham) Alek - Fully Assessed Reason for Visit: Refill Request [94] Visit Diagnosis:Anxiety disorder, unspecified [F41.9] Prescriptions as of 02/01/2021 - Insulin Syringe-Needle U-100 (BD ULTRAFINE INSULIN) 1 mL 31 gauge x 5/16 Use for insulin injections 2 times daily. - insulin regular human, CON CENTRATED 500 UNIT/ML, (HUMULIN R) 500 unit/mL soln Inject 0.66 mL sc at breakfast + 0.62 mL at dinner. Us ing U100 syringe, 66 'unit sabillon' at breakfast and 62 'unit sabillon' at dinne r sc. - fluticasone-vilanterol (BREO ELLIPTA) 100-25 mcg/dos e inhaler Inhale 1 Inhalation as instructed once daily. - montelukast (SINGULAIR) 10 mg tablet Take 1 tablet by mouth daily at bedtime. - albuterol HFA (VENTOLIN HFA) 90 mcg/actuation inhale r Inhale 2 Puffs as instructed every 4 hours as needed. Inhale by mouth as instructed. - rosuvastatin (CRESTOR) 20 mg tablet Take 1 tablet by mouth daily at bedtime. - lisinopril (ZESTRIL, PRINIVIL) 20 mg tablet TAKE 1/2 TABLET BY MOUTH ONCE DAILY - COMPOUNDED PRESCRIPTION Dispense glucose test strips according to insurance gu ideline to test as directed 3 times daily. DX: E11.3293 - COMPOUNDED PRESCRIPTION Please dispense handicap placard DX J45.909. Dispense Date: 11/14/2018 Expiration Date: 11/14/2020 - metoprolol succinate ER (TOPROL XL) 50 mg 24 hr tabl et Take 1 tablet by mouth once daily. - carvedilol (COREG) 6.25 mg tablet Take 1 tablet by mouth twice daily with meals. - nitroglycerin sublingual (NITROQUICK) 0.4 mg SL tabl et Dissolve 1 tablet under the tongue as needed for Chest Pain. - levothyroxine (SYNTHROID) 88 mcg tablet Take 1 tablet by mouth once daily. - COMPOUNDED PRESCRIPTION Dispense glucose testing lancets according to insuranc e guideline to test 3 times daily, as directed. DX: E11.3293 - COMPOUNDED PRESCRIPTION Dispense glucometer according to insurance guideline t o use as directed. DX: E11.3293 - COMPOUNDED PRESCRIPTION Please dispense glucose meter per insurance form ulary. To test 3 times daily. DX: E11.3293, insulin dependent. - COMPOUNDED PRESCRIPTION Increase nocturnal supplemental oxygen to 4 liters per minute via nasal cannula with any sleep. DX: nocturnal hypoxia G47.34. - Multivitamin capsule Take 1 capsule by mouth once daily. - COMPOUNDED PRESCRIPTION Please perform nocturnal oximetry on 2 L/min O2 NC. Pl ease fax results to [phone]. Assoc DX: J45.909. - COMPOUNDED PRESCRIPTION Please dispense disability placard. Expiration date: . DX: Coronary artery disease I25.10. - aspirin, enteric coated (ASPIRIN, ENTERIC COATED) 81 mg EC tablet Take 1 tablet by mouth once daily. - fluticasone (FLONASE) 50 mcg/actuation nasal spray Use 1 [place] in each nostril daily at bedtime. - LORazepam (ATIVAN) 1 mg tablet Take 1 mg by mouth daily at bedtime. - furosemide 20 mg tablet Take 80 mg by mouth twice daily. Take 3 tablets daily - paroxetine (PAXIL) 40 mg ORAL tablet Take one(1) tablet daily. - traZODONE 50 mg ORAL tablet Take one(1) tablet at bedtime. - buPROPion SR (WELLBUTRIN SR) 100 mg ORAL 12 hr table t Take one(1) tablet two(2) times daily. Problem List As Of Date 05/27/2020 Noted Resolved Uncontrolled type 2 diabetes mellitus with mode*1994 Hypertension [I10] 02/11/2010 Hypothyroidism [E03.9] 02/12/2010 Mixed hyperlipidemia [E78.2] 02/12/2010 Back pain [M54.9] 04/21/2012 11/03/2014 Hip weakness [R29.898] 04/21/2012 11/03/2014 Daytime hypersomnolence [G47.19] 03/16/2014 11/12/2016 Morbid obesity (HCC) [E66.01] 03/16/2014 Pneumonia [J18.9] 04/10/2016 11/12/2016 SOB (shortness of breath) [R06.02] 04/10/2016 04/13/19 17 Asthma exacerbation [J45.901] 04/11/2016 11/12/2016 Non-rheumatic mitral regurgitation [I34.0] 05/31/2016 Non-rheumatic tricuspid valve insufficiency [I3*2016 Venous stasis ulcers (HCC) [I83.009, L97.909] 06/10/1911/12/2016 Lymphedema of both lower extremities [I89.0] 7 Myocardial infarct (HCC) [I21.9] 02/23/2017 03/06/2017 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 Office Visit (Family Medicine) on 01-29 Follow-up visit Chief Complaint Normal [facility] MONIQUE LINCOLN is here for a follow-up for 3 months anxiety = telephone call [phone]. A telephone visit (audio onl y) between the patient (at the originating site) and the provider (at the distant site) was utilized to provide this telehealth service. History of Present Illness Monique visit today was to revi ew her vacations, including those for anxiety and depression, particularly her regular use of lorazepam. Medication(s) are being taken and tolerated as prescribed, without concerns, list reconciled today. She overall has been in her usual state of health, staying mostly at home due to current Covid 19 pandemic mitigation recommendations. She's had no ill symptoms recently, has been a bit more stressed as her is ill and in a rehabilitation center. She has been on Paxil, Wellb utrin, and daily. Lorazepam for many, many years. Her dose has never needed to increase. Monique is overdue for labs, last checked in September 2018. Her diabetes. His severe, re quiring high concentration insulin, managed by Dr. Crow Her breathing has been stabl e, from an asthma standpoint. Significant lower extremity edema, chronic, also stable 'Scores and Scales' PHQ-9 [id number] 01:45PM PHQ-9 Total Score (Please update problem list based on total score) 1. Little interest or pleasure in doing things 2. Feeling down, depressed, or hopeless 3. Trouble falling or staying asleep, or sleeping too much 4. Feeling tired or having little energy 5. Poor appetite or overeating 6. Feeling bad about yoursel f or you are a failure or that you have let yourself or your family down 7. Trouble concentrating on things, such as reading the newspaper or watch television 8. Moving or speaking so slo wly that other people could have noticed. Or the opposite-being so fidgety or restless that you have been moving around a lot more than usual 9. Thoughts that you would be better off , or of h urting yourself 10. If you checked off any p roblems, how difficult have these problems made it for you to do your work, take care of things at home, or get along with other people? IO PHQ2 IO PHQ96- Mild Depression Review of Systems The full, 10+ multi-organ re view of systems, is within normal limits with the exception of what is noted above in HPI. Active Problems Acne (706.1) (L70.9) Anemia (285.9) (D64.9) Anxiety disorder (300.00) (F41.9) Asthma (493.90) (J45.909) Benign essential hypertension (401.1) (I10) CAD (coronary artery disease) (414.00) (I25.10) Constipation (564.00) (K59.00) Depression (311) (F32.9) Diabetes mellitus, type 2 (250.00) (E11.9) Hyperlipidemia (272.4) (E78.5) Hypothyroidism (244.9) (E03.9) Hypoxia (799.02) (R09.02) Insomnia (780.52) (G47.00) Intervertebral disc syndrome (722.2) (M51.9) Lumbar degenerative disc disease (722.52) (M51.36) Medication management (V58.69) (Z79.899) Myocardial infarction (410.90) (I21.9) Non-seasonal allergic rhinitis, unspecified trigger (4 77.8) (J30.89) NSAID long-term use (V58.64) (Z79.1) Obstructive sleep apnea (327.23) (G47.33) Venous stasis dermatitis of lower extremity (454.1) (I 87.2) Past Medical History History of Asthma exacerbation (493.92) (J45.901) History of Breast cancer screening (V76.10) (Z12.39) History of Cellulitis (682.9) (L03.90) History of Colon cancer screening (V76.51) (Z12.11) History of acute bronchitis (V12.69) (Z87.09) History of chronic obstructive lung disease (V12.69) ( Z87.09) History of decubitus ulcer (V13.3) (Z87.2) History of depression (V11.8) (Z86.59) History of edema (V13.89) (Z87.898) History of fatigue (V13.89) (Z87.898) History of wheezing (V12.69) (Z87.898) History of Hospital discharge follow-up (V67.59) (Z09) History of Immunization due (V05.9) (Z23) History of continuous churn buttermaker current use of opiate analgesic ( V58.69) (Z79.891) History of Opiate analgesic use agreement exists (V58. 69) (Z79.891) Personal history of coronary atherosclerosis (V12.59) (Z86.79) History of Sigmoid diverticulitis (562.11) (K57.32) Surgical History History of Cath Placement Of Stent 1 History of Tubal Ligation Family History Family history of hypertension (V17.49) (Z82.49) Family history of sepsis (V18.8) (Z83.1) Family history of systemic lupus erythematosus (V19.4) (Z82.69) Family history of diabetes mellitus (V18.0) (Z83.3) Family history of malignant neoplasm (V16.9) (Z80.9) Social History Never a smoker Never used tobacco (V49.89) (Z78.9) Unemployed, looking for work Allergies atorvastatin 2017-reported arm pain; Myal traci; Recorded By: Laura Steve; 04/17/2016 10:28:59 AM sulfa Recorded By: Nupur Martin; 07/28/2015 2:09:05 PM Sulfa Drugs Recorded By: Zena Coronado; 05/25/2013 1:50:16 PM Current Meds LORazepam 1 MG Oral Tablet; TAKE 1 TABLET AT BEDTIME, AND 1/2 TAB DURING THE DAY NEEDED; Therapy: [id number] to (Evaluate:[id number]) Requested f or: [id number]; Last Rx:[id number] (more content not included)... Office Visit (Family Medicine) on 09-25 Follow-up visit Chief Complaint Normal [facility] MONIQUE LINCOLN is here for a follow-up for anxiety, depression, chol, insomnia, fasting . Look at left hand, ring finger nail has fungus and is almost completely off. 1) Do you have fever AND/OR respiratory symptoms (such as cough, shortness of breath, wheezing)- 2) Have you returned from [facility] from [place] OR outside of the in the last 14 days, and if so, where?- 3) If respiratory symptoms a re present, have you been in contact with a person with confirmed COVID- 19 in the 14 days prior to symptoms No to all questions History of Present Illness Patient Health Questionnaire - 9 (PHQ-9 1. Little interest or pleasure in doing things - sever al days 2. Feeling down, depressed or hopeless - several days 3. Trouble falling asleep or sleeping too much - not a t all 4. Feeling tired or having little energy - more than h luis the days 5. Poor appetite or overeating - not at all 6. Feeling bad about self or failure or letting others down - not at all 7. Trouble concentrating on things - not at all 8. Moving / speaking slowly or fidgety / restless - no t at all 9. Thought would be better off or hurting self - not at all Total Score: 4/27 1. Feeling nervous, anxious, or on edge: Several 2. Unable to stop worrying: None 3. Worrying too much about different things: None 4. Problems relaxing: Several 5. Feeling restless or unable to sit still: None 6. Feeling irritable or easily annoyed: 7 or more 7. Being afraid that something awful might happen: Non e General Anxiety Disorder SCORE: 4. Monique is here for three-month follow-up of her anxiety and depression medications, particularly lorazepam. She is taking and tolerating all as prescribed, denies any new concerns regarding them. See (separate, scanned docum ent) the completed PHQ-9 and ONEAL-7 scales for additional symptom ratings. She is doing her best to fol low current coronavirus medication recommendations, particularly because she is a significantly high risk individual. Labs in the last year were constance kebede, as well as her last progress note here. She has multiple specialists, including cardiology, endocrinology, pulmonology. Today a limited physical exa m was performed, to the extent necessary to adequately diagnose and treat, given current coronavirus pandemic mitigation efforts I have personally reviewed t he OARRS report for MONIQUE LINCOLN. I have considered the risks of abuse, dependence, addiction and diversion. Last urine drug screening date/ordered today: 03/21/19 Results of last screen: Results as expected. Controlled Substance Agreement: I have printed this form and reviewed each line item with the patient and the patient has verbalized understanding. Date of the last Controlled Substance Agreement: BENZOD[place]ZEPINES What is the patient?s goal o f therapy? Adequate treatment of significant ongoing insomnia. Is this being achieved with current treatment? Y. Activities of Daily Living: Yes, it is my opinion that t his patient is benefitting from benzodiazepine therapy. Physical functioning: Better Family relationships: Better Social relationships: Better Mood: Better Sleep patterns: Better Overall functioning: Better Review of Systems The full, 10+ multi-organ re view of systems, is within normal limits with the exception of what is noted above in HPI. Active Problems Acne (706.1) (L70.9) Anemia (285.9) (D64.9) Anxiety disorder (300.00) (F41.9) Asthma (493.90) (J45.909) Benign essential hypertension (401.1) (I10) CAD (coronary artery disease) (414.00) (I25.10) Constipation (564.00) (K59.00) Depression (311) (F32.9) Diabetes mellitus, type 2 (250.00) (E11.9) Hyperlipidemia (272.4) (E78.5) Hypothyroidism (244.9) (E03.9) Hypoxia (799.02) (R09.02) Insomnia (780.52) (G47.00) Intervertebral disc syndrome (722.2) (M51.9) Lumbar degenerative disc disease (722.52) (M51.36) Medication management (V58.69) (Z79.899) Myocardial infarction (410.90) (I21.9) Non-seasonal allergic rhinitis, unspecified trigger (4 77.8) (J30.89) NSAID long-term use (V58.64) (Z79.1) Obstructive sleep apnea (327.23) (G47.33) Venous stasis dermatitis of lower extremity (454.1) (I 87.2) Past Medical History History of Asthma exacerbation (493.92) (J45.901) History of Breast cancer screening (V76.10) (Z12.39) History of Cellulitis (682.9) (L03.90) History of Colon cancer screening (V76.51) (Z12.11) History of acute bronchitis (V12.69) (Z87.09) History of chronic obstructive lung disease (V12.69) ( Z87.09) History of decubitus ulcer (V13.3) (Z87.2) History of depression (V11.8) (Z86.59) History of edema (V13.89) (Z87.898) History of fatigue (V13.89) (Z87.898) History of wheezing (V12.69) (Z87.898) History of Hospital discharge follow-up (V67.59) (Z09) History of Immunization due (V05.9) (Z23) History of care home current use of opiate analgesic ( V58.69) (Z79.891) History of Opiate analgesic use agreement exists (more content not included)... TAIWO - [facility] [place] on 07-13-2019 [facility] [place] [facility] [place], [place] MONIQUE LINCOLN January Date of Female Sex [id number] [place] [address] AddressEnglish (preferred) Language White Race Not or Ethnicity Summary of Care Clinical Content Allergies and Adverse Reacti ons <#[id number]> Encounters <#[id number]> Family History <#XE3TUDWS> Functional Status <#[id number]> Immunization <#[id number]> Instructions <#ID0ER PEK> Interventions Provided <#JD7STBYK> Medications <#HW0CVSFA> Past Medical History <#[id number]> Plan of Care <#EO2KIXWW> Problems <#GK3QTERY> Procedures <#[id number]> Results <#LH8CIZSQ> Social History <#JN9K6PTQ> Vital Signs <#HE4XBSBZ> Other Document Details Health Care Providers Functional Statustop <#top> Functional Status Health Issues NameDatesDetails Functional status health issues are not documented Cognitive Status Health Issues NameDatesDetails Cognitive status health issues are not documented Problemstop <#top> NameDatesDetails Non-seasonal allergic rhinitis, unspecified trigger (4 77.8, J30.89) Anxiety disorder (300.00, F41.9) Benign essential hypertension (401.1, I10) Depression (311, F32.9) Diabetes mellitus, type 2 (250.00, E11.9) Hypothyroidism (244.9, E03.9) Hyperlipidemia (272.4, E78.5) Obstructive sleep apnea (327.23, G47.33) Acne (706.1, L70.9) Venous stasis dermatitis of lower extremity (454.1, I8 7.2) Myocardial infarction (410.90, I21.9) Constipation (564.00, K59.00) Hypoxia (799.02, R09.02) Asthma (493.90, J45.909) CAD (coronary artery disease) (414.00, I25.10) Medication management (V58.69, Z79.899) Insomnia (780.52, G47.00) Anemia (285.9, D64.9) NSAID long-term use (V58.64, Z79.1) Intervertebral disc syndrome (722.2, M51.9) Lumbar degenerative disc disease (722.52, M51.36) Medicationstop <#top> NameDatesDetails Lisinopril 10 MG Oral Tablet Take 1 tablet daily Quantity: 30 Refills: 11 Augie Romero MD Start : 07-Feb-2015 PARoxetine HCl - 30 MG Oral Tablet Take 2 tablets daily Quantity: 60 Refills: 11 Augie Romero MD Start : 07-Feb-2015 LORazepam 1 MG Oral Tablet T CELSA 1 TABLET AT BEDTIME, AND 1/2 TAB DURING THE DAY NEEDED Quantity: 40 Refills: 2 Augie Romero MD Start : 01-Feb-2019 HumuLIN R U-500 (CONCENTRATE D) 500 UNIT/ML Subcutaneous Solution inject 0.8ML at breakfast, 0.9ML at lunch if eaten, 0.44ML at dinner Quantity: 1 Refills: 0 Augie Romero MD 20 ML Vial [employer] Ultra Blue STRP Quantity: 255 Refills: 0 Star t : 12-Jun-2012 traZODone HCl - 100 MG Oral Tablet TAKE 1 TABLET BY MOUTH EVERYDAY AT BEDTIME Quantity: 90 Refills: 3 Augie Romero MD Start : 20-Sep-2012 [employer] Ultra Mini w/Device Kit Quantity: 1 Refills: 0 Start : 06-Jun-2013 Easy Touch Lancing Device Quantity: 1 Refills: 0 Start : 06-Jun-2013 BD Insulin Syringe Ultrafine 31G X 5/16 1 ML MISC Quantity: 255 Refills: 0 Start : 19-May-2013 Furosemide 80 MG Oral Tablet take 1 tablet by mouth twice a day Quantity: 180 Refills: 3 Augie Romero MD Start : 14-Aug-2014 Levothyroxine Sodium 88 MCG Oral Tablet TAKE 1 TABLET DAILY. Quantity: 30 Refills: 11 Augie Romero MD Start : 23-Mar-2015 Ventolin HFA 108 (90 Base) M CG/ACT Inhalation Aerosol Solution pt takes as needed Quantity: 1 Refills: 0 Augie Romero MD Start : 28-Aug-2016 8 GM Inhaler Breo Ellipta 100-25 MCG/INH Inhalation Aerosol Powder Breath Activated USE 1 INHALATION ONCE DAILY. Refills: 0 Start : 12-Dec-2016 28 Each Pack Fluticasone Propionate 50 MC G/ACT Nasal Suspension USE 1 SPRAY IN EACH NOSTRIL DAILY AT BEDTIME. Quantity: 1 Refills: 11 Augie Romero MD Start : 12-Dec-2016 16 GM Bottle OptiChamber Hannah USE WITH INHALER DIRECTED. Quantity: 1 Refills: 0 Start : 12-Dec-2016 Nitroglycerin 0.4 MG Subling ual Tablet Sublingual Quantity: 25 Refills: 0 Start : 27-Feb-2017 Aspirin EC Low Dose 81 MG Or al Tablet Delayed Release Take 1 tablet by mouth once daily. Quantity: 30 Refills: 0 Start : 24-Feb-2017 Montelukast Sodium 10 MG Ora l Tablet TAKE 1 TABLET AT BEDTIME. Quantity: 30 Refills: 11 Augie Romero MD Start : 27-Jun-2017 buPROPion HCl ER (XL) 300 MG Oral Tablet Extended Release 24 Hour TAKE 1 TABLET DAILY. Quantity: 30 Refills: 11 Augie Romero MD Start : 06-Jul-2017 SB Polyethylene Glycol 3350 17 GM/SCOOP Oral Powder FILL DOSING CUP TO MARKED LINE (17 GRAMS) THEN MIX WITH 8 OUNCES OF FLUIDS AND DRINK DAILY DIRECTED, NEEDED Quantity: 1 Refills: 1 Augie Romero MD Start : 31-Jan-2018 255 GM Bottle Atorvastatin Calcium 80 Hemoglobin A1C, Level on 10-01-2018 HbA1c (Bld) [Mass fraction] 8.6 % 0 [facility] Work Phone: COMPREHENSIVE PANEL on 07-18-2018 Albumin [Mass/Vol] 3.7 g/dL Normal 3.4 - 5.0 [facility] Comment on above: Performed By: #### CMP #### [facility] [address] [place] [address] ALP [Catalytic activity/Vol] 109 U/L Normal 33 - 136 [facility] Comment on above: Performed By: #### CMP #### [facility] [address] [place] [address] ALT [Catalytic activity/Vol] 17 U/L Normal 7 - 45 [facility] Comment on above: Result Comment: Patients sally ated with Sulfasalazine may generate falsely decreased results fo r ALT. Performed By: #### CMP #### [facility] [address] [place] [address] Anion gap [Moles/Vol] 14 mmol/L Normal 10 - 20 [facility] Comment on above: Performed By: #### CMP #### [facility] [address] [place] [address] AST [Catalytic activity/Vol] 19 U/L Normal 9 - 39 [facility] Comment on above: Performed By: #### CMP #### [facility] [address] [place] [address] Bilirubin [Mass/Vol] 0.5 mg/dL Normal 0.0 - 1.2 [facility] Comment on above: Performed By: #### CMP #### [facility] [address] [place] [address] Calcium [Mass/Vol] 9.7 mg/dL Normal 8.6 - 10.6 [facility] Comment on above: Performed By: #### CMP #### [facility] [address] [place] [address] Chloride [Moles/Vol] 99 mmol/L Normal 98 - 107 [facility] Comment on above: Performed By: #### CMP #### [facility] [address] [place] [address] Creatinine [Mass/Vol] 0.81 mg/dL Normal 0.50 - 1.05 [facility] Comment on above: Performed By: #### CMP #### [facility] [address] [place] [address] GFR- AM. >60 Normal >60 [facility] Comment on above: Result Comment: CALCULATIONS OF ESTIMATED GFR ARE PERFORMED USING THE MDRD STUDY EQUATIO N FOR THE IDMS-TRACEABLE CREATININE ME THODS. CLIN CHEM 2007;53:766-72 Performed By: #### CMP #### [facility] [address] [place] [address] GFR-NON AM. >60 Normal >60 [facility] Comment on above: Performed By: #### CMP #### [facility] [address] [place] [address] Glucose [Mass/Vol] 173 mg/dL High 74 - 99 [facility] Comment on above: Performed By: #### CMP #### [facility] [address] [place] [address] HCO3 (Bld) [Moles/Vol] 33 mmol/L High 21 - 32 [facility] Comment on above: Performed By: #### CMP #### [facility] [address] [place] [address] Potassium [Moles/Vol] 3.3 mmol/L Low 3.5 - 5.3 [facility] Comment on above: Performed By: #### CMP #### [facility] [address] [place] [address] Protein [Mass/Vol] 6.7 g/dL Normal 6.4 - 8.2 [facility] Comment on above: Performed By: #### CMP #### [facility] [address] [place] [address] Sodium [Moles/Vol] 143 mmol/L Normal 136 - 145 [facility] Comment on above: Performed By: #### CMP #### [facility] [address] [place] [address] Urea nitrogen [Mass/Vol] 13 mg/dL Normal 6 - 23 [facility] Comment on above: Performed By: #### CMP #### [facility] [address] [place] [address] LIPID PANEL (CORONARY RISK 2) on 2018 Cholesterol [Mass/Vol] 176 mg/dL Normal 0 - 199 [facility] Comment on above: Result Comment: . AGE DESIRABLE BORDERLINE HIG H HIGH 0-19 Y 0 - 169 170 - 199 >/= 200 20-24 Y 0 - 189 190 - 224 >/ = 225 >24 Y 0 - 199 200 - 239 >/= 240 All ranges are based on fa sting samples. Specific therapeutic targets will pearl y based on patient-specific cardiac risk. . Pediatric guidelines referen ce:Pediatrics 2011, 128(S5). Adult guidelines reference: NCEP ATPIII Guidelines, NERISSA 2001, 258:2486-97 . Venipuncture immediately aft er or during the administration of Metamizole may lead to falsely low results. Testing should be performed immediately prior to Metamizole dosing. Performed By: #### LIPID ### # [facility] [address] [place] [address] Cholesterol in HDL [Mass/Vol] 34.0 mg/dL Abnormal [facility] Comment on above: Result Comment: . AGE VERY LOW LOW NORMAL HIGH 0-19 Y < 35 < 40 40-45 ---- 20-24 Y ---- < 40 >45 ---- >24 Y ---- < 40 40-60 >60 . Performed By: #### LIPID ### # [facility] [address] [place] [address] Cholesterol in LDL [Mass/Vol] 109 mg/dL High 0 - 99 [facility] Comment on above: Result Comment: . NEAR BORD AGE DESIRABLE OPTIMAL HIGH H IGH VERY HIGH 0-19 Y 0 - 109 --- 110-129 > /= 130 ---- 20-24 Y 0 - 119 --- 120-159 >/= 160 ---- >24 Y 0 - 99 100-129 130-159 160-189 >/=190 . Performed By: #### LIPID ### # [facility] [address] [place] [address] Cholesterol in VLDL [Mass/Vol] 33 mg/dL Normal 0 - 40 [facility] Comment on above: Performed By: #### LIPID ### # [facility] [address] [place] [address] Cholesterol.total/Cholesterol in HDL 5.2 {ratio} Abnormal [facility] [Mass ratio] [place] Comment on above: Result Comment: REF VALUES DESIRABLE < 3.4 HIGH RISK > 5.0 Performed By: #### LIPID ### # [facility] [address] [place] [address] Triglyceride [Mass/Vol] 164 mg/dL High 0 - 149 [facility] Comment on above: Result Comment: . AGE DESIRABLE BORDERLINE HIG H HIGH VERY HIGH 0 D-90 D 19 - 174 ---- ---- ---- 91 D- 9 Y 0 - 74 75 - 99 >/= 100 ---- 10-19 Y 0 - 89 90 - 129 >/= 130 ---- 20-24 Y 0 - 114 115 - 149 >/ = 150 ---- >24 Y 0 - 149 150 - 199 200- 499 >/= 500 . Venipuncture immediately aft er or during the administration of Metamizole may lead to falsely low results. Testing should be performed immediately prior to Metamizole dosing. Performed By: #### LIPID ### # [facility] [address] [place] [address] CBC on 07-17-2018 Erythrocyte distribution width 13.5 % Normal 11.5 - 14. 5 [facility] (RBC) [Ratio] Comment on above: Performed By: #### CBC #### [facility] [address] [place] [address] Hematocrit (Bld) [Volume 39.2 % Normal 36.0 - 46.0 [facility] fraction] Comment on above: Performed By: #### CBC #### [facility] [address] [place] [address] Hemoglobin (Bld) [Mass/Vol] 12.3 g/dL Normal 12.0 - 16.0 [facility] Comment on above: Performed By: #### CBC #### [facility] [address] [place] [address] MCHC (RBC) [Mass/Vol] 31.4 g/dL Low 32.0 - 36.0 [facility] Comment on above: Performed By: #### CBC #### [facility] [address] [place] [address] MCV (RBC) [Entitic vol] 95 fL Normal 80 - 100 [facility] Comment on above: Performed By: #### CBC #### [facility] [address] [place] [address] Nucleated RBC/100 WBC (Bld) 0.0 /100 WBC Normal 0.0-0.0 [facility] [Ratio] Comment on above: Performed By: #### CBC #### [facility] [address] [place] [address] Platelets (Bld) [#/Vol] 193 10*3/uL Normal 150 - 450 [facility] Comment on above: Performed By: #### CBC #### [facility] [address] [place] [address] RBC (Bld) [#/Vol] 4.12 x10E12/L Normal 4.00 - 5.20 [facility] Comment on above: Performed By: #### CBC #### [facility] [address] [place] [address] WBC (Bld) [#/Vol] 8.0 10*3/uL Normal 4.4 - 11.3 [facility] Comment on above: Performed By: #### CBC #### [facility] [address] [place] [address] TSH on 07-17-2018 TSH Qn 3.18 m[IU]/L Normal 0.44 - 3.98 [facility] Comment on above: Result Comment: TSH testing is performed using different testing methodology at [facility] than at other [facility]. Direct res ult comparisons should only be made within the same method. . Patients receiving more than 5 mg/day of biotin may have interference in test results. A sample sh ould be taken no sooner than eight hours after previous dose. Contact [phone] for additional information. Performed By: #### TSH2 #### [facility] [address] [place] [address] Basic Metabolic Panl on 04-21-2018 Anion gap molar conc 13 mmol/L Normal 9-18 [facility] Comment on above: Performed By: #### CBC, BMP ####[facility] [address] [place] [address] 0 Calcium mass conc 9.4 mg/dL Normal 8.5-10.2 [facility] pital Comment on above: Performed By: #### CBC, BMP ####[facility] [address] [place] [address] 0 Chloride molar conc 101 mmol/L Normal 97-105 [facility] Comment on above: Performed By: #### CBC, BMP ####[facility] [address] [place] [address] 0 CO2 molar conc 24 mmol/L Normal 22-30 [facility] Comment on above: Performed By: #### CBC, BMP ####[facility] [address] [place] [address] 0 Creatinine mass conc 0.98 mg/dL High 0.58-0.96 [facility] Comment on above: Performed By: #### CBC, BMP ####[facility] [address] [place] [address] 0 eGFR- Amer. >60 [facility] Comment on above: Performed By: #### CBC, BMP ####[facility] [address] [place] [address] 0 GFR/1.73 sq M predicted among non-blacks MDRD vol 58 . Norm al [facility] rate/area (S/P/Bld) Comment on above: Result Comment: eGFR (Estima ravi GFR) Units of measure: mL/min/1.73 meters squared eGFR is derived from the ree xpressed MDRD Study equation using the following parameters: serum creatinine, age, gender and race. The creatinine assay has been calibrated to be traceable to IDMS. An eGFR <60 mL/min/1.73m2 fo r >3 months is consistent with chronic kidney disease. Refer to KDOQI guidelines for clinical interpretation. In patients with unstable re nal function, e.g. those with acute kidney injury, the eGFR may not accurately reflect actual GFR. Performed By: #### CBC, BMP ####[facility] [address] [place] [address] 0 Glucose mass conc 258 mg/dL High 74-99 [facility] pital Comment on above: Result Comment: The [place] Diabetes Association (ADA) provides guidance for cutoff values for fasting glucose and random glucose. The ADA defines fasting as no caloric intake for at least 8 hours. Fas ting plasma glucose results between 100 to 125 mg/dL indicate increased risk for diabetes (prediabetes). Fasting plasma glucose resul ts greater than or equal to 126 mg/dL meet the criteria for diagnosis of diabetes. In the absence of unequivocal hyperglycemia, results should be confirmed by repeat testing. In a patient with classic s ymptoms of hyperglycemia or hyperglycemic crisis, random plasma glucose results greater than or equal to 200 mg/dL meet the criteria for diagnosis of diabetes. Reference: Standards of [facility] in Diabetes 2016, [place] Diabetes Association. Diabetes Care. 2016.39(Suppl 1). Performed By: #### CBC, BMP ####[facility] [address] [place] [address] 0 Potassium molar conc 4.3 mmol/L Normal 3.7-5.1 [facility] Comment on above: Performed By: #### CBC, BMP ####[facility] [address] [place] [address] 0 Sodium molar conc 138 mmol/L Normal 136-144 [facility] Comment on above: Performed By: #### CBC, BMP ####[facility] [address] [place] [address] 0 Urea nitrogen mass conc 14 mg/dL Normal 7-21 [facility] Comment on above: Performed By: #### CBC, BMP ####[facility] [address] [place] [address] 0 CBC on 04-21-2018 Erythrocyte distribution width Ratio (RBC) 13.1 % Normal 11.5-15.0 [facility] Comment on above: Performed By: #### CBC, BMP ####[facility] [address] [place] [address] 0 Hematocrit Volume Fraction (Bld) 33.3 % Low 36.0-46. 0 [facility] Comment on above: Performed By: #### CBC, BMP ####[facility] [address] [place] [address] 0 Hemoglobin mass conc (Bld) 10.7 g/dL Low 11.5-15.5 [facility] Comment on above: Performed By: #### CBC, BMP ####[facility] [address] [place] [address] 0 MCH Entitic mass (RBC) 31.8 pG Normal 26.0-34.0 [facility] Comment on above: Performed By: #### CBC, BMP ####[facility] [address] [place] [address] 0 MCHC mass conc (RBC) 32.1 g/dL Normal 30.5-36.0 [facility] Comment on above: Performed By: #### CBC, BMP ####[facility] [address] [place], [place] [address] 0 MCV Entitic volume (RBC) 98.8 fL Normal 80.0-100.0 [facility] [place] Comment on above: Performed By: #### CBC, BMP ####[facility] [address] [place] [address] 0 Platelet mean volume Entitic volume (Bld) 11.0 fL Normal 9.0-12.7 [facility] Comment on above: Performed By: #### CBC, BMP ####[facility] [address] [place] [address] 0 Platelets #/vol (Bld) 132 10*3/uL Low 150-400 [facility] Comment on above: Performed By: #### CBC, BMP ####[facility] [address] [place] [address] 0 RBC #/vol (Bld) 3.37 10*6/uL Low 3.90-5.20 [facility] Comment on above: Performed By: #### CBC, BMP ####[facility] [address] [place] [address] 0 WBC #/vol (Bld) 5.88 10*3/uL Normal 3.70-11.00 [facility] Comment on above: Performed By: #### CBC, BMP ####[facility] [address] [place] [address] 0 CNCO on 04-21-2018 CNCO Letter Text Normal [facility] April 21, 2018 Monique Lincoln [address] [facility] [address] Dear Ms. Lincoln, The nurses and staff of [facility] hope this woodrow er finds you feeling well and progressing in your recovery. Our staff would like to thank you for trusting and choosing us for your health care needs. I t was an honor for us to provide your nursing care. We know that placing our Patients First and maintaining a culture of continuous improvement each a nd every day, are essential to the success of our organization. I hope your stay with us has been positive. We want to hear from you. If you have any comments, questions or concerns about your [facility] stay, please feel free to contact me, Emma Bass RN ) or email me at, Additionally, you will receive a survey in the mail as kina you to rate the care you received while in the hospital. Please take the time to complete and send back the survey, as it is essential to our contin ued success. I personally review all the results and would appreciate your feedback. Thank you in advance for your participation and thank you for choosing the [facility] for your health needs. Sincerely, Nurse Banquet Coordinator: Emma Bass RN ([phone]) [facility] Unit: 2 South Basic Metabolic Panl on 04-20-2018 Anion gap molar conc 7 mmol/L Low 9-18 [facility] Comment on above: Performed By: #### CBC, BMP ####[facility] [address] [place] [address] 0 Calcium mass conc 9.1 mg/dL Normal 8.5-10.2 [facility] Comment on above: Performed By: #### CBC, BMP ####[facility] [address] [place] [address] 0 Chloride molar conc 101 mmol/L Normal 97-105 [facility] Comment on above: Performed By: #### CBC, BMP ####[facility] [address] [place] [address] 0 CO2 molar conc 30 mmol/L Normal 22-30 [facility] Comment on above: Performed By: #### CBC, BMP ####[place] [address] 0 Creatinine mass conc 1.46 mg/dL High 0.58-0.96 [facility] Comment on above: Performed By: #### CBC, BMP ####[facility] [address] [place] [address] 0 eGFR- Amer. 44 Normal [facility] Comment on above: Performed By: #### CBC, BMP ####[facility] [address] [place] [address] 0 GFR/1.73 sq M predicted among non-blacks MDRD vol 36 . Norm al [facility] rate/area (S/P/Bld) Comment on above: Result Comment: eGFR (Estima ravi GFR) Units of measure: mL/min/1.73 meters squared eGFR is derived from the ree xpressed MDRD Study equation using the following parameters: serum creatinine, age, gender and race. The creatinine assay has been calibrated to be traceable to IDIN. An eGFR <60 mL/min/1.73m2 fo r >3 months is consistent with chronic kidney disease. Refer to KDOQI guidelines for clinical interpretation. In patients with unstable re nal function, e.g. those with acute kidney injury, the eGFR may not accurately reflect actual GFR. Performed By: #### CBC, BMP ####[facility] [address] [place] [address] 0 Glucose mass conc 105 mg/dL High 74-99 [facility] Comment on above: Result Comment: The [place] Diabetes Association (ADA) provides guidance for cutoff values for fasting glucose and random glucose. The ADA defines fasting as no caloric intake for at least 8 hours. Fas ting plasma glucose results between 100 to 125 mg/dL indicate increased risk for diabetes (prediabetes). Fasting plasma glucose resul ts greater than or equal to 126 mg/dL meet the criteria for diagnosis of diabetes. In the absence of unequivocal hyperglycemia, results should be confirmed by repeat testing. In a patient with classic s ymptoms of hyperglycemia or hyperglycemic crisis, random plasma glucose results greater than or equal to 200 mg/dL meet the criteria for diagnosis of diabetes. Reference: Standards of [facility] in Diabetes 2016, [place] [employer] Association. Diabetes Care. 2016.39(Suppl 1). Performed By: #### CBC, BMP ####[facility] [address] [place] [address] 0 Potassium molar conc 4.5 mmol/L Normal 3.7-5.1 [facility] Comment on above: Performed By: #### CBC, BMP ####[facility] [address] [place] [address] 0 Sodium molar conc 138 mmol/L Normal 136-144 [facility] Comment on above: Performed By: #### CBC, BMP ####[facility] [address] [place] [address] 0 Urea nitrogen mass conc 21 mg/dL Normal 7-21 [facility] Comment on above: Performed By: #### CBC, BMP ####[facility] [address] [place] [address] 0 CBC on 04-20-2018 Erythrocyte distribution width Ratio (RBC) 13.1 % Normal 11.5-15.0 [facility] Comment on above: Performed By: #### CBC, BMP ####[facility] [address] [place] [address] 0 Hematocrit Volume Fraction (Bld) 32.9 % Low 36.0-46. 0 [facility] Comment on above: Performed By: #### CBC, BMP ####[facility] [address] [place] [address] 0 Hemoglobin mass conc (Bld) 10.7 g/dL Low 11.5-15.5 [facility] Comment on above: Performed By: #### CBC, BMP ####[place] [address] 0 MCH Entitic mass (RBC) 32.4 pG Normal 26.0-34.0 [facility] Comment on above: Performed By: #### CBC, BMP ####[place] [address] 0 MCHC mass conc (RBC) 32.5 g/dL Normal 30.5-36.0 [facility] Comment on above: Performed By: #### CBC, BMP ####[place] [address] 0 MCV Entitic volume (RBC) 99.7 fL Normal 80.0-100.0 [facility] [place] Comment on above: Performed By: #### CBC, BMP ####[place] [address] 0 Platelet mean volume Entitic volume (Bld) 11.1 fL Normal 9.0-12.7 [facility] Comment on above: Performed By: #### CBC, BMP ####[facility] [address] [place] [address] 0 Platelets #/vol (Bld) 134 10*3/uL Low 150-400 [facility] Comment on above: Performed By: #### CBC, BMP ####[facility] [address] [place] [address] 0 RBC #/vol (Bld) 3.30 10*6/uL Low 3.90-5.20 [facility] Comment on above: Performed By: #### CBC, BMP ####[facility] [address] [place] [phone] 0 WBC #/vol (Bld) 6.89 10*3/uL Normal 3.70-11.00 [facility] Comment on above: Performed By: #### CBC, BMP ####[facility] [address] [place] [phone] 0 PROGRESS on 04-20-2018 Protein mass conc HNO ID: [id number] Normal [facility] Author: Mary Diaz Service: Hospital Medicine Author Type: Physician Type: Progress Notes Filed: 04/20/2018 4:31 PM Note Text: SERVICE DATE: 04/20/2018 SERVICE TIME: 4:30 PM HOSPITAL MEDICINE PROGRESS NOTE NIGHT AND WEEKEND COVERAGE: Nights: Please [place] [phone]. SUBJECTIVE Interval Events: Symptoms have improved. Still had diarrhea. Blood suga rs have been stable. No more nausea/vomiting with liquid diet. She reported feeling hungry and wants to advance her diet. IV is out, and RN reported difficulty getting PIV OBJECTIVE BP 140/52 Pulse 87 Temp (Src) 99 (Oral) Resp 18 Ht 5' 5.5 (1.66m) Wt 272 lb 1.6 oz (123.4kg) SpO2 100% BMI 44.58 k g/(m2). Physical Exam Performed: GENERAL: Alert, no distress, cooperative SKIN: +vascular discoloration and skin flaking noted t o bilateral anterior shins. Skin color, texture, turgor normal. No rashes o r lesions. HEAD/SINUSES: No significant findings. AT/NC EYES: PERRLA, EOMI LUNGS: Lungs clear to auscultation, Good diaphragmatic excursion CARDIAC: RRR. Normal S1 and S2; no rubs, murmurs, or g allops ABDOMEN: No tenderness to palpation of the abdomen. No rigidity or guarding. No rebound tenderness. Abdomen soft, non-ten dar, BS normal, No masses or organomegaly EXTREMITIES: See skin section. Non-pitting edema of th e bilateral lower extremities. Good capillary refill., No ulcers. NEURO: Sensation grossly intact, no focal neurological deficits. Cranial nerves III-XII intact PULSES: 2+ radial, 2+ dorsalis pedis Lines, Drains, and Airways Line Peripheral 04/18/18 1701 Short Right Antecubital 20 Ga uge 1 day Reviewed lines, drains, AND airways. Need to be contin ued Medical Therapy Medications: Reviewed Diagnostic tests reviewed: Most recent labs and imaging results. Most recent imaging ASSESSMENT AND PLAN Assessment AND Plan, all Hosp Problems Active Hospital Problems as of 04/20/2018 Noted - Resolved Hospital Diverticulitis 04/18/2018 - Present Current Assessment AND Plan Assessment: Patient with reported abdominal pain nausea and vomiti ng x 1 week Prior history of diverticulitis five years ago managed outpatient CT abdomen findings consistent with acute diverticulit is without evidence of perforation or abscess Mild leukocytosis (11.9)on admission-->WNL today, afeb rile Creatinine slightly elevated today PLAN: PO antibiotics Cefdinir and flagyl GI soft diet Advised pt to take adequate fluids Will need to call PICC team for IV access if pt has po or PO intake, has nausea for antibiotics and hydration Uncontrolled type 2 diabetes mellitus 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 crow outpatient Patient has been taking her insulin over the past week and this morning despite decreased appetite, nausea, and vomiting BG found to be in the 30s-40s on arrival, given D5 and started on dextrose drip which was stopped when she got to the [facility] as her blood sugars were in the 120s Patient takes U-500 humulin R (using U100 syringes) 80 units at breakfast, 9 units at lunch and 44 units in evening She states that she cannot use humalog, novolog or fernandez tus as it causes her to have hematuria and has not been able to tolerate it in the past, she is refusing it here for sliding scale Insulin held last night in secondary to hypoglycemia, now with elevated blood sugar this morning Night staff increased dosing of her insulin regimen se condary to this, still with elevated blood sugars PLAN: Monitor BG closely POC testing AC/HS Hypoglycemia protocol in place Controlled with current regimen Hypertension 02/11/2010 - Present Current Assessment AND Plan Assessment: Stable PLAN: Continue home medications Hypothyroidism 02/12/2010 - Present Current Assessment AND Plan Assessment: Most recent TSH 2.96 Stable PLAN: Continue levothyroxine Mixed hyperlipidemia 02/12/2010 - Present Current Assessment AND Plan Assessment: Most recent lipid panel from 06/2017 reviewed Stable PLAN: Continue high dose statin Morbid obesity (HCC) 03/16/2014 - Present Current Assessment AND Plan Assessment: BMI 42 PLAN: Patient counseled on diet and exercise COPD with asthma ([facility]) 02/23/2017 - Present Current Assessment AND Plan Assessment: Patient follows with pulmonology outpatient Chronically on 3L NC at home PLAN: Continue breo and albuterol CAD (coronary artery disease) 03/06/2017 - Present Current Assessment AND Plan Assessment: Hx of CAD and NSTEMI s/p stent to LAD in 01/[address] Ramires Echocardiogram on 02/2017 showing Left ventricular sys tolic function is normal. EF = 60 ? 5%. Normal Right ventricular systoli c function. Moderate (2+) mitral valve regurgitation. Moderate pulmonary hy pertension PLAN: Continue diuretic, aCEI, BB, ASA and brillinta Pulmonary hypertension (HCC) 09/27/2017 - Present Current Assessment AND Plan Assessment: Recent ECHO 02/27/2017 (post-AL) with worsening RVSP, 64 mmHg. Follow with pulmonology outpatient On 3L continuous home O2 chronically ? PLAN: Continue home O2 3L Obesity, Class III, BMI >= 40 04/20/2018 - Present Medication and Non-Pharmacologic VTE Prophylaxis/Antic oagulants Anticoagulant AND Antiplatelet Medications Start Dose Route Frequency Ordered Stop 04/19/18 0900 aspirin, enteric coated 81 mg tab(s) 81 mg ORAL DAILY 04/18/181930 -- 04/18/182099 ticagrelor 90 mg tab(s) (BRILINTA) 90 mg ORAL 2 TIMES DAILY 04/18/181930 -- 04/18/181944 pneumatic compression stockings (wi,fl) 04/18/181944 activity - mobilize patient ([place]) VTE Prophylaxis: VTE prophylaxis appropriate Plan of care discussed with: Patient SIGNATURE: Mary Diaz MD PATIENT NAME: Monique arellano DATE: April 20, 2018 TIME: 4:30 PM PAGER/CONTACT #: [phone] Basic Metabolic Panl on 04-19-2018 Anion gap molar conc 15 mmol/L Normal - [facility] Comment on above: Performed By: #### CBC, BMP ####[facility] [address] [place] [address] 0 Calcium mass conc 9.1 mg/dL Normal 8.5-10.2 [facility] Comment on above: Performed By: #### CBC, BMP ####[facility] [address] [place] [address] 0 Chloride molar conc 100 mmol/L Normal 97-105 [facility] Comment on above: Performed By: #### CBC, BMP ####[facility] [address] [place] [address] 0 CO2 molar conc 28 mmol/L Normal 22-30 [facility] Comment on above: Performed By: #### CBC, BMP ####[facility] [address] [place] [address] 0 Creatinine mass conc 1.33 mg/dL High 0.58-0.96 [facility] Comment on above: Performed By: #### CBC, BMP ####[facility] [address] [place] [address] 0 eGFR- Amer. 49 Normal [facility] Comment on above: Performed By: #### CBC, BMP ####[facility] [address] [place] [address] 0 GFR/1.73 sq M predicted among non-blacks MDRD vol 40 . Norm al [facility] rate/area (S/P/Bld) Comment on above: Result Comment: eGFR (Estima ravi GFR) Units of measure: mL/min/1.73 meters squared eGFR is derived from the ree xpressed MDRD Study equation using the following parameters: serum creatinine, age, gender and race. The creatinine assay has been calibrated to be traceable to IDMS. An eGFR <60 mL/min/1.73m2 fo r >3 months is consistent with chronic kidney disease. Refer to KDOQI guidelines for clinical interpretation. In patients with unstable re nal function, e.g. those with acute kidney injury, the eGFR may not accurately reflect actual GFR. Performed By: #### CBC, BMP ####[facility] [address] [place] [address] 0 Glucose mass conc 234 mg/dL High 74-99 [facility] Comment on above: Result Comment: The [place] Diabetes Association (ADA) provides guidance for cutoff values for fasting glucose and random glucose. The ADA defines fasting as no caloric intake for at least 8 hours. Fas ting plasma glucose results between 100 to 125 mg/dL indicate increased risk for diabetes (prediabetes). Fasting plasma glucose resul ts greater than or equal to 126 mg/dL meet the criteria for diagnosis of diabetes. In the absence of unequivocal hyperglycemia, results should be confirmed by repeat testing. In a patient with classic s ymptoms of hyperglycemia or hyperglycemic crisis, random plasma glucose results greater than or equal to 200 mg/dL meet the criteria for diagnosis of diabetes. Reference: Standards of [facility] Diabetes 2016, [place] Diabetes Association. Diabetes Care. 2016.39(Suppl 1). Performed By: #### CBC, BMP ####[facility] [address] [place] [address] 0 Potassium molar conc 4.6 mmol/L Normal 3.7-5.1 [facility] Comment on above: Performed By: #### CBC, BMP ####[facility] [address] [place] [address] 0 Sodium molar conc 143 mmol/L Normal 136-144 [facility] Comment on above: Performed By: #### CBC, BMP ####[facility] [address] [place] [address] 0 Urea nitrogen mass conc 20 mg/dL Normal 7-21 [facility] Comment on above: Performed By: #### CBC, BMP ####[facility] [address] [place] [address] 0 CASE MANAGEM on 04-19-2018 CASE MANAGEM HNO ID: [id number] Normal [facility] Author: Ariana (Kyle) KYLE Muñoz Service: Case Management Author Type: Registered Nurse Type: Care Mgt Progress Note Filed: 04/19/2018 12:37 PM Note Text: CARE MANAGEMENT PROGRESS NOTE SERVICE DATE: 04/19/2018 SERVICE TIME: 12:34 PM LOS: 0 days Needs Prior to Discharge: Other: See Comment (Medical Clearance) EMR reviewed. KYLE WHEELER met with patient at bedside to dis cuss plans. Patient confirms plan to return home with her spouse. No skill ed needs anticipated. Patient's spouse will transport and will have portable O2 tank for transport. SIGNATURE: Ariana Toni, RN PATIENT NAME: Monique White ord DATE: April 19, 2018 TIME: 12:34 PM PAGER/CONTACT #: [phone] CBC on 04-19-2018 Erythrocyte distribution width Ratio (RBC) 13.3 % Normal 11.5-15.0 [facility] Comment on above: Performed By: #### CBC, BMP ####[facility] [address] [place] [address] 0 Hematocrit Volume Fraction (Bld) 36.0 % Normal 36.0-46. 0 [facility] Comment on above: Performed By: #### CBC, BMP ####[facility] [address] [place] [address] 0 Hemoglobin mass conc (Bld) 11.5 g/dL Normal 11.5-15.5 [facility] Comment on above: Performed By: #### CBC, BMP ####[place] [address] 0 MCH Entitic mass (RBC) 31.9 pG Normal 26.0-34.0 [facility] Comment on above: Performed By: #### CBC, BMP ####[place] [address] 0 MCHC mass conc (RBC) 31.9 g/dL Normal 30.5-36.0 [facility] Comment on above: Performed By: #### CBC, BMP ####[place] [address] 0 MCV Entitic volume (RBC) 99.7 fL Normal 80.0-100.0 [facility] [place] Comment on above: Performed By: #### CBC, BMP ####[facility] [address] [place] [address] 0 Platelet mean volume Entitic volume (Bld) 11.2 fL Normal 9.0-12.7 [facility] Comment on above: Performed By: #### CBC, BMP ####[facility] [address] [place] [address] 0 Platelets #/vol (Bld) 149 10*3/uL Low 150-400 [facility] Comment on above: Performed By: #### CBC, BMP ####[facility] [address] [place] [address] 0 RBC #/vol (Bld) 3.61 10*6/uL Low 3.90-5.20 [facility] Comment on above: Performed By: #### CBC, BMP ####[facility] [address] [place] [address] 0 WBC #/vol (Bld) 9.98 10*3/uL Normal 3.70-11.00 [facility] Comment on above: Performed By: #### CBC, BMP ####[facility] [address] [place] [address] 0 NURSING PROG on 04-19-2018 Protein HNO ID: [id number] Normal [facility] Author: Magnus (Rn) KYLE [facility] conc Service: (none) Author Type: Registered Nurse Type: Nursing Progress Note Filed: 04/20/2018 4:15 AM Note Text: Nursing Progress Note Patient Name: Monique Lincoln Patient Location: [place] [address] [address] Daily Note: 2043: Patient states she feels as if her blood sugar i s dropping. BGT results were 69. 2045: D50 administered. Will recheck in 15 min. 2101: BGT 93. Will continue to monitor. 4: Patient BGT 54. Patient is asymptomatic. D50 adm inistered IV push. Dr. Tran ordered to change fluids to D5 NS at 75. 0021: Patient BGT 43. D50 administered. Hospitalist no tified. No further orders at this time. 0047: BGT 76. Patient drowsy and sweaty. D50 administe red. Hospitalist notified of symptoms. 0213: BGT 55. Patient remains drowsy. Given apple juic e and pudding. D50 administered. Hospitalist notified. Ordered to continu e D50 and monitor. 0246: BGT 62. Patient more awake. D50 administered. Kobe wongtalist notified. This note was completed by: Magnus Merritt, RN Protein HNO ID: [id number] Normal [facility] Author: Summer (Rn) Pearl, KYLE Hospital conc Service: (none) Author Type: Registered Nurse Type: Nursing Progress Note Filed: 04/19/2018 6:39 PM Note Text: Nursing Progress Note Patient Name: Monique Lincoln Patient Location: [id number] Daily Note: 1651- Pt given insulin as ordered. aide notified RN of BS of 50. Pt eating and given juice. Notified Yvonne MEDICAL ASSEMBLY. Pt asymptomatic. Wi ll re check sugar in 15 minutes. 170- Sugar re checked , reading 68. Given one more ju ice and re notified Yvonne [employer]ICAL ASSEMBLY. Will re check BS one more time in 15 minutes . Per Yvonne, ok to monitor and she will be restarted on her home insulin regimen. 173 - Sugar re checked. Reading 86. Pt is resting in bed and going to continue drinking juice and finish eating. Will contin ue to monitor BS. 1809 - Pt stated she didn't feel well. Re-checked BS - 59. Notified SREEDHAR Russell. Told to give 1/2 amp D50. 1818 - Gave 25ml D50 IV push. Will re-check BS in 15 m inutes. 1837- Re-checked pt blood sugar. Pt states she is feel ing better and BS was 99. Will continue to monitor and add to night shif t report to continue to monitor pt BS tonight. This note was completed by: Summer Kang, KYLE PROGRESS on 04-19-2018 Protein mass conc HNO ID: [id number] [facility] Author: Yvonne Branham) Henrique Service: Hospital Medicine Author Type: Physician Baseball Glove Shaper Type: Progress Notes Filed: 04/19/2018 8:09 PM Note Text: SERVICE DATE: 04/19/2018 SERVICE TIME: 3:08 PM HOSPITAL MEDICINE PROGRESS NOTE NIGHT AND WEEKEND COVERAGE: Nights: [place] [phone]. HPI This is a 63 year old female with a PMH significant fo r T2DM, diverticulitis, pulmonary HTN, CAD s/p AILYN to LAD (2016), HTN, HLD, anxiety/depresssion who presented to the ED today with complaints of nausea and vomiting. Patient states that she developed lower abdominal pain 1 week ago. She describes this as a burning and a savannah sensation in her lower abdomen with radiation to both the right and left sides. She reports that she also developed nausea and intermitten t episodes of vomiting over the course of the past week and has had a diminished appetite. Despite her poor appetite and vomiting arnoldo hicks has continued to use her home insulin regimen. She states that for the past 24 hours she has been unable to keep any oral intake down and has v omited 4-5 times during that time. She still did take her insulin dosin g this morning regardless. She reports that early this morning she wilcox d an episode of dizziness and diaphoresis and felt as if her blood sug ar was low, however she did not check her sugar at home and presented to [facility] ED instead. She reports a few episodes of loose stools over the past f ew days as well. She denies any CP, SOB, palpitations, hematemesis, hematoc hezia, melena, dysuria, fevers or chills. Patient reports that she wilcox s had one prior episode of diverticulitis five years ago managed outpa tient at that time. ? In the ED patient was found to be profoundly hypoglyce letty with a BS of 32 and was given dextrose and started on D5 drip with slo w improvement in her sugars over the past few hours. CBC shows some mild le ukocytosis (11.97). CT abdomen and pelvis showing numerous diverticula wit h with associated bowel wall thickening and soft tissue stranding across the sigmoid colon suggestive of acute diverticulitis. EKG showing NSR an d troponin negative. She was admitted for observation and further managemen t of her hypoglycemia and diverticulitis. SUBJECTIVE Interval Events: Patient stated that she was feeling well this morning, tolerating liquids, however when advanced to full liquids later this after noon patient states that she had an episode of nausea again and began deve loping lower abdominal bloating. She does note that she has not had a bowel movement since yesterday morning and has been straining when melissa royg to have a bowel movement. Will place her on bowel regimen and hold off on further advancing her diet until symptoms improve. Morning dos e of insulin was increased by night staff secondary to hyperglycemia ho clare patient noted to by hypoglycemic this afternoon. Will resume home in sulin regimen at this time. No CP, SOB, vomiting, diarrhea, dizziness. OBJECTIVE BP 103/77 Pulse 75 Temp (Src) 98.1 (Oral) Resp 1 8 Ht 5' 5.5 (1.66m) Wt 265 lb 11.2 oz (120.5kg) SpO2 98% BMI 43.53 kg/(m2). Physical Exam Performed: GENERAL: Alert, no distress, cooperative SKIN: +vascular discoloration and skin flaking noted t o bilateral anterior shins. Skin color, texture, turgor normal. No rashes o r lesions. HEAD/SINUSES: No significant findings. AT/NC EYES: PERRLA, EOMI LUNGS: Lungs clear to auscultation, Good diaphragmatic excursion CARDIAC: RRR. Normal S1 and S2; no rubs, murmurs, or g allops ABDOMEN: No tenderness to palpation of the abdomen. No rigidity or guarding. No rebound tenderness. Abdomen soft, non-ten dar, BS normal, No masses or organomegaly EXTREMITIES: See skin section. Non-pitting edema of th e bilateral lower extremities. Good capillary refill., No ulcers. NEURO: Sensation grossly intact, no focal neurological deficits. Cranial nerves III-XII intact PULSES: 2+ radial, 2+ dorsalis pedis Lines, Drains, and Airways Line Peripheral 04/18/18 1701 Short Right Antecubital 20 Ga uge less than 1 day Reviewed lines, drains, AND airways. Need to be contin ued Medical Therapy Medications: Reviewed Diagnostic tests reviewed: Most recent labs and imaging results. Most recent imaging Recent Labs 04/19/18 0450 04/18/18 1345 WBC 9.98 11.97* RBC 3.61* 3.92 HB 11.5 12.4 HCT 36.0 38.1 PLT 149* 181 MCV 99.7 97.2 MCH 31.9 31.6 MPV 11.2 11.0 ABSNEUT -- 9.16* NEUTP -- 76.5 LYMPHP -- 13.4 MONOP -- 8.5 EODINP -- 1.1 Recent Labs 04/19/18 0450 04/18/18 1345 GLUC 234* 46* NA 143 142 K 4.6 3.5* CHLOR 100 99 CO2 28 33* CREAT 1.33* 1.03* BUN 20 17 ANION 15 10 CA 9.1 10.0 TPROT -- 7.1 ALB -- 3.9 TBILI -- 0.5 ALKPHOS -- 98 AST -- 34 ALT -- 28 Recent Labs 04/18/18 1345 TBILI 0.5 AST 34 ALT 28 ALB 3.9 TPROT 7.1 ALKPHOS 98 Recent Labs 04/19/18 0450 04/18/18 1345 NA 143 142 K 4.6 3.5* CHLOR 100 99 CO2 28 33* ANION 15 10 Most recent labs ASSESSMENT AND PLAN Assessment AND Plan, all Hosp Problems Active Hospital Problems as of 04/19/2018 Noted - Resolved Hospital Diverticulitis 04/18/2018 - Present Current Assessment AND Plan Assessment: Patient with reported abdominal pain nausea and vomiti ng x 1 week Prior history of diverticulitis five years ago managed outpatient CT abdomen findings consistent with acute diverticulit is without evidence of perforation or abscess Mild leukocytosis (11.9)on admission-->WNL today, afeb rile Creatinine slightly elevated today Patient was started on clear liquids this morning and advanced to full liquids this afternoon. She initially felt well but th en her nausea and abdominal pain returned. Patient does note she has been straining to have a bow el movement this morning and feels constipated which may be contributin g PLAN: Will stop further advancement of her diet until her na usea and abdominal pain resolve Likely transition to GI soft in the morning and if amador erated can be discharged on oral antibiotics. 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 crow outpatient Patient has been taking her insulin over the past week and this morning despite decreased appetite, nausea, and vomiting BG found to be in the 30s-40s on arrival, given D5 and started on dextrose drip which was stopped when she got to the [facility] as her blood sugars were in the 120s Patient takes U-500 humulin R (using U100 syringes) 80 units at breakfast, 9 units at lunch and 44 units in evening She states that she cannot use humalog, novolog or fernandez tus as it causes her to have hematuria and has not been able to tolerate it in the past, she is refusing it here for sliding scale Insulin held last night in secondary to hypoglycemia, now with elevated blood sugar this morning Night staff increased dosing of her morning insulin re gimen secondary to hyperglycemia, however patient then noted to be hypogl ycemic in the afternoon with BG of 50-->given D5 PLAN: Will place patient back on her home regimen Monitor BG closely-->give D5 as needed per hypoglycemi a protocol POC testing AC/HS Hypoglycemia protocol in place Pulmonary hypertension (HCC) 09/27/2017 - Present Current Assessment AND Plan Assessment: Recent ECHO 02/27/2017 (post-AL) with worsening RVSP, 64 mmHg. Follow with pulmonology outpatient On 3L continuous home O2 chronically ? 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 Ramires No CP or increased breathing requirements EKG showing NSR, troponin negative Echocardiogram on 02/2017 showing Left ventricular sys tolic function is normal. EF = 60 ? 5%. Normal Right ventricular systoli c function. Moderate (2+) mitral valve regurgitation. Moderate pulmonary hy pertension PLAN: Continue diuretic, aCEI, BB, ASA and brillinta Medication and Non-Pharmacologic VTE Prophylaxis/Antic oagulants Anticoagulant AND Antiplatelet Medications Start Dose Route Frequency Ordered Stop 04/19/18 0900 aspirin, enteric coated 81 mg tab(s) 81 mg ORAL DAILY 04/18/181930 -- 04/18/18 2100 ticagrelor 90 mg tab(s) (BRILINTA) 90 mg ORAL 2 TIMES DAILY 04/18/181930 -- 04/18/181944 pneumatic compression stockings ([place], [place]) 04/18/181944 activity - mobilize patient ([place]) VTE Prophylaxis: VTE prophylaxis appropriate Plan of care discussed with: Attending, Patient and RN SIGNATURE: vYonne Duenas PA-C PATIENT NAME: Monique Wharton rd DATE: April 19, 2018 TIME: 3:08 PM PAGER/CONTACT #: [phone] [facility] on 04-18-2018 [facility] HNO ID: [id number] [facility] Author: Holli (Ct) KRISS Gipson Service: (none) Author Type: Clinical Wafer Production Worker Type: Allied Health Filed: 04/18/2018 5:00 PM Note Text: Radiology Service Progress Note DATE OF SERVICE: April 18, 2018 TIME: 4:59 PM PATIENT IDENTITY VERIFICATION COMPLETED USING TWO (2) METHODS: Patient confirmed name verbally and ID band matches.. PATIENT GENDER DATA: Female. status: Pregnan t: No status: NO. PATIENT RELEVANT IMPLANT DATA REVIEWED: Not Applicable ALLERGIES: Reviewed and unchanged CONTRAST ALLERGY: NO. EXAM: CT -CONTRAST INDUCED NEPHROPATHY RISK FACTORS: P atient age > 60 years and Diabetic: No and Yes. Current medication(s): Insulin Insulin Pump: NO Insulin Pump Removed: N/A. Patient currently has insulin pump?: No. CREATININE: Creatinine Date Value Ref Range Status 04/18/2018 1.03 (H) 0.58 - 0.96 mg/dL Final 07/18/2017 0.92 0.58 - 0.96 mg/dL Final 02/25/2017 0.80 0.58 - 0.96 mg/dL Final eGFR-All Other Races Date Value Ref Range Status 04/18/2018 54 . Final Comment: eGFR (Estimated GFR) Units of measure: mL/min/1.73 met ers squared eGFR is derived from the reexpressed MDRD Study equati on using the following parameters: serum creatinine, age, gender and race. Th e creatinine assay has been calibrated to be traceable to IDMS. An eGFR <60 mL/min/1.73m2 for >3 months is consistent with chronic kidney disease. Refer to KDOQI guidelines for clinical interp retation. In patients with unstable renal function, e.g. those w ith acute kidney injury, the eGFR may not accurately reflect actual GFR. eGFR- Date Value Ref Range Status 04/18/2018 >60 Final P.O.C.T. RESULTS: POC done: Yes, See Lab Tab April 18, 2018 TREATMENT: N/A PERIPHERAL IV DATA: Inpatient - refer to [facility] RADIOLOGY DEPARTMENT: CT; Exam(s) Completed: Abdomen/P peyman SIGNATURE: KRISS Snyder PATIENT NAME: Monique mathew DATE: April 18, 2018 TIME: 4:59 PM CASE MGT INIT ASSES on 04-18-2018 CASE MGT INIT ZEN HNO ID: [id number] [facility] Author: Penny (Rn) KYLE Pate Service: (none) Author Type: Registered Nurse Type: Care Mgt Initial Assessment Filed: 04/18/2018 7:27 PM Note Text: CARE MANAGEMENT: ASSESSMENT AND DISCHARGE PLAN SERVICE DATE: 04/18/2018 SERVICE TIME: 7:00 PM development scientist met with patient at bedside in the [facility] department bed-9. Introduction made and role of case management china cornell Patient states he is agreeable to assessment questions . Assessment information provided by electronic medical record and patient. PRIMARY CARE PHYSICIAN: Augie Romero MD - confirmed Patient states she prefers appointments between 10 am -11 am on . 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 No Advance Directive: Current Advance Directive: Health Care Power of Attorn ey;Living Will In Chart: No Personnel Clerk Attempted to Assist with AD Completion: Y es Action: Education Provided Per Patient HCPOA Agent: Anders Lincoln - Spouse Health Literacy: 1. How often do you need to have someone help you when you read instructions, pamphlets, or other written material fro m your doctor or pharmacy? Never - 1 2. How confident are you filling out medical forms by yourself? Extremely - 1 If Patient scores > 3 on either question, the followin g interventions were put into place: Use of plain language and active listening with Patien t and family, Teach back methods employed to ensure comprehension and Use concrete and specific phrases, avoid medical jargon FUNCTIONAL AND COGNITIVE/BEHAVIORAL PRIOR TO ADMISSION: Baseline Mental Status: Alert AND Oriented, Person, Pl josé antonio , Time and Situation Functional Status: Needs Assistance Does Patient Currently Receive Any Community Services or Home Care? None Equipment Prior to Admission: Tub bench/chair Grab Bar at Shower O2 3 liters 18/09 Provider: Ricky Patient states she uses an electric scooter to shop Patient states she uses a wheelchair if she has to [facility] long distances. Has the Patient Been in a Fci Facility in the Past 30 days? No SOCIAL: Living Arrangement: Home Split Level Home Lives With: Spouse Financial Resources: Disabled Primary Contact: Anders Lincoln R [address] [place] [address] [facility] Relation: Spouse Supportive: Yes - Patient confirms her spouse is suppo rtive. Other Important Patient Contacts: None Caregiver Assessment: Caregiver is ready, willing and able to meet the patie nt's needs as recommended by the inter-professional team? No Caregiver Needed Patient's transition needs and plan for meeting these needs: Home/Self Care Does the patient have an acute stroke diagnosis, or wilcox s the patient had a stroke during this admission? No Medication Adherence: I am convinced of the importance of my prescription me dication: Agree completely - 0 I worry that my prescription medication will do more h arm than good to me Disagree completely - 0 I feel financially burdened by my ctc-ld-olkuad expens es for my prescription medication: Disagree completely - 0 Patient is categorized as low risk < 2 Patient states she manages her own medications. Spouse assists by picking up her prescriptions. Are you interested in bedside delivery of your medicat ions? No Pharmacy Preference: [facility] Food Concerns: In the Last Month, Have You had Trouble Getting Food? No trouble getting food During the Last Month, Have You Worried Whether Your F ood Would Run Out Before You Had Enough Money to Buy More? No Is the Patient Psychosocially Complex? No ASSESSMENT AND PLAN: Medical Needs: 2 or more chronic diseases Pulmonary HTN CAD COPD with Asthma HTN Hypothyroidism Diverticulitis DM2 Mitral Valve Regurgitation Tricuspid Valve Insufficiency Psychosocial Needs: None FREEDOM OF CHOICE EXPLAINED: Yes [place] of Choice explained to patient POTENTIAL TRANSITION PLANS Discharge Needs: To Be Determined Patient denies any discharge needs or concerns at this time. Anticipating Home/Self Care Discharge Transportation: Family to Transport - Spouse Patient informed Care Management is available to aid i n discharge planning needs. Primary Care Physician: Augie Romero MD - [facility] ry of Care to be sent at discharge. SIGNATURE: Penny Pate RN PATIENT NAME: Monique Reyes sford DATE: April 18, 2018 TIME: 7:00 PM PAGER/CONTACT #: [phone] CBC and Differential on 04-18-2018 Abs Baso 0.06 k/uL Normal <0.11 [facility] Comment on above: Performed By: #### CBCDIF, C K, CMP, LIPA, MG1 #### [facility] [address] [place] [address] Abs Branch 1.02 k/uL High <0.87 [facility] Comment on above: Performed By: #### CBCDIF, C K, CMP, LIPA, MG1 #### [facility] [address] [place], [place] [phone] Abs Neut 9.16 k/uL High 1.45-7.50 [facility] Comment on above: Performed By: #### CBCDIF, C K, CMP, LIPA, MG1 #### [facility] [address] [place], [place] [phone] Basophils/100 WBC (Bld) 0.5 % Normal [facility] Comment on above: Performed By: #### CBCDIF, C K, CMP, LIPA, MG1 #### [facility] [address] [place], [place] [phone] Eosinophils #/vol (Bld) 0.13 10*3/uL Normal <0.46 [facility] Comment on above: Performed By: #### CBCDIF, C K, CMP, LIPA, MG1 #### [facility] [address] Eosinophils/100 WBC (Bld) 1.1 % Normal [facility] Comment on above: Performed By: #### CBCDIF, C K, CMP, LIPA, MG1 #### [facility] [address] [place] [address] Erythrocyte distribution width Ratio (RBC) 13.1 % Normal 11.5-15.0 [facility] Comment on above: Performed By: #### CBCDIF, C K, CMP, LIPA, MG1 #### [facility] [address] [place] [address] Hematocrit Volume Fraction (Bld) 38.1 % Normal 36.0-46. 0 [facility] Comment on above: Performed By: #### CBCDIF, C K, CMP, LIPA, MG1 #### [facility] [address] [place] [address] Hemoglobin mass conc (Bld) 12.4 g/dL Normal 11.5-15.5 [facility] Comment on above: Performed By: #### CBCDIF, C K, CMP, LIPA, MG1 #### [facility] [address] [place] [address] Lymphocytes #/vol (Bld) 1.60 10*3/uL Normal 1.00-4.00 [facility] Comment on above: Performed By: #### CBCDIF, C K, CMP, LIPA, MG1 #### [facility] [address] [place], [place] [phone] Lymphocytes/100 WBC (Bld) 13.4 % Normal [facility] Comment on above: Performed By: #### CBCDIF, C K, CMP, LIPA, MG1 #### [facility] [address] [place] [address] MCH Entitic mass (RBC) 31.6 pG Normal 26.0-34.0 [facility] Comment on above: Performed By: #### CBCDIF, C K, CMP, LIPA, MG1 #### [facility] [address] [phone] MCHC mass conc (RBC) 32.5 g/dL Normal 30.5-36.0 [facility] Comment on above: Performed By: #### CBCDIF, C K, CMP, LIPA, MG1 #### [facility] [address] [phone] MCV Entitic volume (RBC) 97.2 fL Normal 80.0-100.0 [facility] Comment on above: Performed By: #### CBCDIF, C K, CMP, LIPA, MG1 #### [facility] [address] [place] [address] Monocytes/100 WBC (Bld) 8.5 % Normal [facility] Comment on above: Performed By: #### CBCDIF, C K, CMP, LIPA, MG1 #### [facility] [address] [address] Neutrophils/100 WBC (Bld) 76.5 % Normal [facility] Comment on above: Performed By: #### CBCDIF, C K, CMP, LIPA, MG1 #### [facility] [address] [address] Platelet mean volume Entitic volume (Bld) 11.0 fL Normal 9.0-12.7 [facility] Comment on above: Performed By: #### CBCDIF, C K, CMP, LIPA, MG1 #### [facility] [address] [address] Platelets #/vol (Bld) 181 10*3/uL Normal 150-400 [facility] Comment on above: Performed By: #### CBCDIF, C K, CMP, LIPA, MG1 #### [facility] [address] RBC #/vol (Bld) 3.92 10*6/uL Normal 3.90-5.20 [facility] Comment on above: Performed By: #### CBCDIF, C K, CMP, LIPA, MG1 #### [facility] [address] WBC #/vol (Bld) 11.97 10*3/uL High 3.70-11.00 [facility] Comment on above: Performed By: #### CBCDIF, C K, CMP, LIPA, MG1 #### [facility] [address] [facility] [phone] CK on 04-18-2018 CK enzyme act/vol 40 U/L Low 42-196 [facility] Comment on above: Performed By: #### CBCDIF, C K, CMP, LIPA, MG1 #### [facility] [address] [facility] [phone] CT ABD/PEL W IVCON on 04-18-2018 CT ABD/PEL W IVCON * * *Final Report* * * Normal [facility] DATE OF EXAM: Apr 18 2018 5:03PM [facility] 0530 - CT ABD/PEL W IVCON / PROCEDURE REASON: Infection, abdomen-pelvis * * * * Physician Interpretation * * * * EXAMINATION: CT ABDOMEN AND PELVIS WITH IV CONTRAST CLINICAL HISTORY: Infection, abdomen-pelvis, Lower abdominal pain, diarrhea, nausea/vomiting LOW ABD PAIN NO PREVIOUS SURGERY TECHNIQUE: CT of the abdomen and pelvis was performed using standard technique, scanning from just above the dome of the di aphragm to the symphysis pubis. MQ: CTAP_3 Contrast: IV: 150 ml of Omnipaque 300 CT Radiation dose: Integrated Dose-length product (DLP ) for this visit = 1080 mGy*cm. CT Dose Reduction Employed: Automated exposure control (AEC) COMPARISON: None. RESULT: Liver: No mass. There appears to be hepatic steatosis however not fully characterized on this contrast exam. Biliary: No bile duct dilation. No CT evidence of gall bladder stones. Spleen: No mass. No splenomegaly. Pancreas: No mass or duct dilation. Adrenals: No mass. Kidneys: Symmetric bilateral kidneys without perirenal soft tissue stranding. There is a 4-5 mm low-attenuation lesion in the right kidney, series 3 image 88. A 6 mm calculus noted in the lower pole of the left kidney. No hydroureteronephrosis. GI tract: There are numerous colonic diverticula along the sigmoid colon and descending colon, with soft tissue stranding and e gail along the sigmoid colon which shows bowel wall thickening. No ob vious abscess formation. Lymph nodes: There is an enlarged portacaval lymph nod e measuring 2.1 x 0.8 cm, series 2 image 47. Adjacent smaller lymph node s are also identified. Mesentery/Peritoneum: No ascites or mass or free abdom inal air. Retroperitoneum: No mass. Vasculature: The celiac axis and SMA are patent. The p ortal vein and branches, splenic vein, SMV, and hepatic veins are pat ent. Pelvis: No mass, ascites or fluid collection. Bones/Soft Tissues: Skin thickening and subcutaneous s oft tissue stranding noted in the anterior abdominal wall. There are degenerative changes in the spine. Lower thorax: No pleural effusions. Foci of basilar at electasis is noted. IMPRESSION: Numerous colonic diverticula along the sigmoid colon a nd descending colon, with associated bowel wall thickening, soft tis lisa stranding and edema along the sigmoid colon, suggestive of acute div erticulitis. Nonobstructing left renal calculus. Small low-attenuation lesion in the right kidney. Enlarged portacaval lymph node. Skin thickening and subcutaneous soft tissue stranding in the anterior abdominal wall. Please clinically correlate. URGENT RESULTS: Communicated with Dr. Ronni austin on 04/18/2018 at 5:30 PM. Industrial Gas Production Operator: CONOR Transcribe Date/Time: Apr 18 2018 5:12P Dictated by : SARITHA TIJERINA MD This examination was interpreted and the report review ed and electronically signed by: SARITHA TIJERINA MD on Apr 18 2018 5:39PM EST [id number] Metabolic Panel on 04-18-2018 Albumin mass conc 3.9 g/dL Normal 3.9-4.9 [facility] Comment on above: Performed By: #### CBCDIF, C K, CMP, LIPA, MG1 #### [facility] [address] [place] [address] ALP enzyme act/vol 98 U/L Normal 34-123 [facility] spital Comment on above: Performed By: #### CBCDIF, C K, CMP, LIPA, MG1 #### [facility] [address] [place] [address] ALT enzyme act/vol 28 U/L Normal 7-38 [facility] Comment on above: Performed By: #### CBCDIF, C K, CMP, LIPA, MG1 #### [facility] [address] [phone] Anion gap molar conc 10 mmol/L Normal 9-18 [facility] Comment on above: Performed By: #### CBCDIF, C K, CMP, LIPA, MG1 #### [facility] [address] [phone] AST enzyme act/vol 34 U/L Normal 13-35 [facility] Comment on above: Performed By: #### CBCDIF, C K, CMP, LIPA, MG1 #### [facility] [address] [facility] [phone] Bilirubin mass conc 0.5 mg/dL Normal 0.2-1.3 [facility] Comment on above: Performed By: #### CBCDIF, C K, CMP, LIPA, MG1 #### [facility] [address] [phone] Calcium mass conc 10.0 mg/dL Normal 8.5-10.2 [facility] pital Comment on above: Performed By: #### CBCDIF, C K, CMP, LIPA, MG1 #### [facility] [address] [phone] Chloride molar conc 99 mmol/L Normal 97-105 [facility]sp[facility] Comment on above: Performed By: #### CBCDIF, C K, CMP, LIPA, MG1 #### [facility] [address] [phone] CO2 molar conc 33 mmol/L High 22-30 [facility] Comment on above: Performed By: #### CBCDIF, C K, CMP, LIPA, MG1 #### [facility] [address] [phone] Creatinine mass conc 1.03 mg/dL High 0.58-0.96 [facility] Comment on above: Performed By: #### CBCDIF, C K, CMP, LIPA, MG1 #### [facility] [address] [phone] eGFR- Amer. >60 Normal [facility] Comment on above: Performed By: #### CBCDIF, C K, CMP, LIPA, MG1 #### [facility] [address] [facility] [phone] GFR/1.73 sq M predicted among non-blacks MDRD vol 54 . Norm al [facility] rate/area (S/P/Bld) Comment on above: Result Comment: eGFR (Estima ravi GFR) Units of measure: mL/min/1.73 meters squared eGFR is derived from the ree xpressed MDRD Study equation using the following parameters: serum creatinine, age, gender and race. The creatinine assay has been calibrated to be traceable to IDMS. An eGFR <60 mL/min/1.73m2 fo r >3 months is consistent with chronic kidney disease. Refer to KDOQI guidelines for clinical interpretation. In patients with unstable re nal function, e.g. those with acute kidney injury, the eGFR may not accurately reflect actual GFR. Performed By: #### CBCDIF, C K, CMP, LIPA, MG1 #### [facility] [address] [facility] [phone] Glucose mass conc 46 mg/dL Low 74-99 [facility] Comment on above: Result Comment: The [place] [employer] (ADA) provides guidance for cutoff values for fasting glucose and random glucose. The ADA defines fasting as no caloric intake for at least 8 hours. Fas ting plasma glucose results between 100 to 125 mg/dL indicate increased risk for diabetes (prediabetes). Fasting plasma glucose resul ts greater than or equal to 126 mg/dL meet the criteria for diagnosis of diabetes. In the absence of unequivocal hyperglycemia, results should be confirmed by repeat testing. In a patient with classic s ymptoms of hyperglycemia or hyperglycemic crisis, random plasma glucose results greater than or equal to 200 mg/dL meet the criteria for diagnosis of diabetes. Reference: Standards of [facility] in Diabetes 2016, [place] [employer] Association. Diabetes Care. 2016.39(Suppl 1). No call per procedure. 04/18/18 1442 ARoberts Performed By: #### CBCDIF, C K, CMP, LIPA, MG1 #### [facility] [address] [facility] [phone] Potassium molar conc 3.5 mmol/L Low 3.7-5.1 [facility] Comment on above: Performed By: #### CBCDIF, C K, CMP, LIPA, MG1 #### [facility] [address] [facility] [phone] Protein mass conc 7.1 g/dL Normal 6.3-8.0 [facility] Comment on above: Performed By: #### CBCDIF, C K, CMP, LIPA, MG1 #### [facility] [address] [facility] [phone] Sodium molar conc 142 mmol/L Normal 136-144 [facility] Comment on above: Performed By: #### CBCDIF, C K, CMP, LIPA, MG1 #### [facility] [address] [facility] [phone] Urea nitrogen mass conc 17 mg/dL Normal 7- [facility] Comment on above: Performed By: #### CBCDIF, C K, CMP, LIPA, MG1 #### [facility] [address] [facility] [phone] ECG COMPLETE on 04-18-2018 ECG COMPLETE NAME : MONIQUE LINCOLN [facility] PID : [id number] : [id number] Gender : Female Race : ORD : [id number] Procedure Date : Apr 18 2018 13:33:36 Edit Date : Apr 19 2018 09:45:20 Diagnosis:NORMAL SINUS RHYTHM NORMAL ECG WHEN COMPARED WITH ECG OF 23-FEB-2017 15:06, NO SIGNIFICANT CHANGE WAS FOUND agree Confirmed by MD LIZETTE, SANTOSH GERONIMO ([id number]), editor news ROSINA SCHRADER ([id number]) on 04/19/2018 9:45:12 AM Ventricular Rate : 78 BPM Atrial Rate : 78 BPM P-R Interval : 152 ms QRS Duration : 88 ms Q-T Interval : 394 ms QTC Calculation(Bezet) : 449 ms P Hurley : 80 degrees R Hurley : 17 degrees T Hurley : 27 degrees Test Reason : Chest Pain Location : 1 : ER 9 Overread By : MD [place] Edited By : ROSINA SCHRADER Referred By : LIZETTE Acquired by : IFEOMA BARNETT NOTE on 04-18-2018 ED NOTE HNO ID: [id number] [facility] Author: Noah (Rn) KYLE Barnett Service: (none) Author Type: Registered Nurse Type: ED Notes Filed: 04/18/2018 4:57 PM Note Text: Pts called me into the room stating that her I V pulled out. I entered the room and the patient stated it just fell out. Pt BS on her blood draw in lab was 48. Finger stick glucose obtaine d reading 32. New IV established and D50 given. ED NOTE HNO ID: [id number] [facility] Author: Noah (Rn) KYLE Barnett Service: (none) Author Type: Registered Nurse Type: ED Notes Filed: 04/18/2018 1:40 PM Note Text: ED NOTE HNO ID: [id number] [facility] Author: Massiel (Rn) KYLE Holm Service: (none) Author Type: Registered Nurse Type: ED Notes Filed: 04/18/2018 11:24 AM Note Text: Patient presents to the ED with N/V and abd pain for a bout a week. ED PROV NOTE on 04-18-2018 Protein mass conc HNO ID: [id number] [facility] Author: Ronni Mcguire DO Service: Emergency Medicine Author Type: Physician Type: ED Provider Notes Filed: 04/18/2018 6:36 PM Note Text: ED Provider Note Patient Name: Monique Lincoln SERVICE DATE: 04/18/18 History Patient presents with: Nausea AND Vomiting Abdominal Pain 63-year-old female past medical history of insulin-dep endent diabetes CAD status post stent COPD supplemental O2 dependent prese nts with one-week history of nausea vomiting diarrhea and lower abdomina l pain. She reports a continuous aching lower abdominal pain that is worse ayush and relieved by nothing. Reports intermittent nonbloody nonbilious renate sis as well as nonbloody stool over the past one week. No fevers chil ls sweats. No chest pain or shortness of breath above baseline. No s ick contacts. No recent antibiotic use. PAST MEDICAL HISTORY Diagnosis Date - Asthma - Daytime hypersomnolence 03/16/2014 - Depression - Environmental allergies - Herniated disc 2011 lumbar - Hypertension - Hypothyroid - Hypoxia On home O2 2LPM NC since 03/2016 - Myocardial infarct (HCC) 02/23/2017 - Obesity - Pneumonia 04/10/2016 - Type II or unspecified type diabetes mellitus withou t mention of complication, not stated as uncontrolled - Venous stasis ulcers (HCC) 06/09/2016 PAST SURGICAL HISTORY Procedure Laterality Date - PAST SURGICAL HISTORY OF tubal ligation FAMILY HISTORY Problem Relation Age of Onset - Diabetes Father - Diabetes Paternal Grandmother - Coronary Artery Disease Paternal Grandfather - other (Other) Mother sepsis - Asthma Daughter ICU adm, [facility] ventilation. Social History Social History Main Topics - Smoking status: Former Smoker Packs/day: 1.00 Years: 15.00 Start date: 02/27/1976 Quit date: 09/06/1991 - Smokeless tobacco: Never Used Comment: Father smoked pipe occasionally. Spouse prior chain smoker. - Alcohol use No - Drug use: No - Sexual activity: Not on file ALLERGIES Allergen Reactions - Sulfa (Sulfonamide * Swelling Throat swelling - Doxycycline Hives, Shortness of Breath - Latex Other: See Comments Pt voices blistering on her hands after wearing gloves . Pt's legs are beet red after removing tubigrip. - Lipitor [Atorvastat* Other: See Comments Aching - Sulfate Salt Swelling Review of Systems Constitutional: Negative. HENT: Negative. Eyes: Negative. Respiratory: Negative. Cardiovascular: Negative. Gastrointestinal: Positive for abdominal pain, diarrhe a, nausea and vomiting. Genitourinary: Negative. Musculoskeletal: Negative. Skin: Negative. Neurological: Negative. Psychiatric/Behavioral: Negative. Physical Exam BP 134/77 Pulse 81 Temp 98.6 Resp 22 Wt 260 lb (117.9kg) SpO2 94% Physical Exam Constitutional: She is oriented to person, place, and time. She appears well-developed and well-nourished. HENT: Head: Normocephalic and atraumatic. Eyes: Pupils are equal, round, and reactive to light. Conjunctivae and EOM are normal. No scleral icterus. Neck: Normal range of motion. Neck supple. Cardiovascular: Normal rate, regular rhythm, normal he art sounds and intact distal pulses. Exam reveals no gallop and no fr iction rub. No murmur heard. Pulmonary/Chest: Effort normal and breath sounds danielle l. No respiratory distress. She has no wheezes. She has no rales. She ex hibits no tenderness. Abdominal: Soft. Bowel sounds are normal. She exhibits no distension and no mass. There is tenderness. There is no rebound and no guarding. Minimal discomfort throughout lower abdominal region w ithout rebound rigidity or guarding Musculoskeletal: Normal range of motion. She exhibits no edema or tenderness. Lymphadenopathy: She has no cervical adenopathy. Neurological: She is alert and oriented to person, carlo ce, and time. No cranial nerve deficit. Skin: Skin is warm and dry. No rash noted. No erythema . Psychiatric: She has a normal mood and affect. Her beh avior is normal. Nursing note and vitals reviewed. Diagnostic Testing ED Labs Ordered and Reviewed - No data to display Potassium 3.5 EKG ordered and interpreted as Normal sinus rhythm rat e of 78 no appreciable acute ischemic changes ED imaging studies ordered and reviewed CT abdomen and pelvis shows evidence of acute divertic ulitis Procedures ED Course / Clinical Impression Clinical Impressions as of Apr 18 1834 Nausea vomiting and diarrhea Lower abdominal pain Hypokalemia Hypoglycemia Leukocytosis, unspecified type Diverticulitis MDM / Disposition / Plan IV started Treated with IV fluids Nursing notes and vital signs reviewed Triage note reviewed Placed on cardiac cath lab manager Parenteral analgesia administered Medications administered morphine and Zofran Ceftriaxo ne and Flagyl Discussed with the reading radiologist CT abdominal fi nding results including no evidence of perforation or abscess Discussed with admitting hospital as Dr. Ballesteros?agreeable to admission Patient stable upon arrival. Unremarkable. No evidence of acute surgical abdomen. Several hours after ED arrival patient pulled her IV out and started acting abnormally. Was found to have a blood s ugar at 32, IV access reestablished and treated with D50, placed on D 5 drip. Blood work obtained and shows mild leukocytosis and hypokalemia. CT abdomen with evidence of acute diverticulitis treated with ceftriax one and Flagyl. Will admit to medicine for further monitoring and care . Admit. MDM The patient was ADMITTED TO: Regular nursing floor. Case discussed with admitting physician, Dr. Ballesteros. Condition at time of disposition: stable SIGNATURE: DO Ronni Dooley DO 04/18/18 1836 HISTORY PHYSICAL on 04-18-2018 HISTORY HNO ID: [id number] [facility] Author: Yvonne Branham) Henrique fairchild Service: Hospital Medicine Author Type: Physician Baseball Glove Shaper Type: HANDP Filed: 04/18/2018 7:53 PM Note Text: Attestation signed by Chepe Ballesteros at 04/18/2018 8:57 PM [facility] STAFF PHYSICIAN NOTE OF PERSONAL INVOLVEMENT IN C ARE I have reviewed the documentation obtained and documen ravi by the team healthcare provider (medical student, fellow, re sident, nurse practitioner or physician historian research assistant) and I personally participated in the wise components. I have discussed the case and management of the patient' s care. Acute uncomplicated diverticulitis with hypoglycemia d ue to taking regular insulin dose while having nausea/vomiting. Will observ e overnight. IV antibiotics for now and liquid diet. Chepe Ballesteros MD Hospital Medicine Staff PAGER: [phone] DATE of Service: 04/18/2018 TIME of Service: 8:56 PM SERVICE DATE: 04/18/2018 SERVICE TIME: 7:48 PM HOSPITAL MEDICINE HISTORY AND PHYSICAL PCP: Augie Romero MD NIGHT AND WEEKEND COVERAGE: Nights: Please [place] [phone]. SUBJECTIVE Chief Complaint: Abdominal pain HPI: This is a 63 year old female with a PMH significant fo r T2DM, diverticulitis, pulmonary HTN, CAD s/p AILYN to LAD (2016), HTN, HLD, anxiety/depresssion who presented to the ED today with complaints of nausea and vomiting. Patient states that she developed lower abdominal pain 1 week ago. She describes this as a burning and a savannah sensation in her lower abdomen with radiation to both the right and left sides. She reports that she also developed nausea and intermitten t episodes of vomiting over the course of the past week and has had a diminished appetite. Despite her poor appetite and vomiting arnoldo hicks has continued to use her home insulin regimen. She states that for the past 24 hours she has been unable to keep any oral intake down and has v omited 4-5 times during that time. She still did take her insulin dosin g this morning regardless. She reports that early this morning she wilcox d an episode of dizziness and diaphoresis and felt as if her blood sug ar was low, however she did not check her sugar at home and presented to [facility] ED instead. She reports a few episodes of loose stools over the past f ew days as well. She denies any CP, SOB, palpitations, hematemesis, hematoc hezia, melena, dysuria, fevers or chills. Patient reports that she wilcox s had one prior episode of diverticulitis five years ago managed outpa tient at that time. In the ED patient was found to be profoundly hypoglyce letty with a BS of 32 and was given dextrose and started on D5 drip with slo w improvement in her sugars over the past few hours. CBC shows some mild le ukocytosis (11.97). CT abdomen and pelvis showing numerous diverticula wit h with associated bowel wall thickening and soft tissue stranding across the sigmoid colon suggestive of acute diverticulitis. EKG showing NSR an d troponin negative. She was admitted for observation and further managemen t of her hypoglycemia and diverticulitis. PAST MEDICAL HISTORY Diagnosis Date - Asthma - Daytime hypersomnolence 03/16/2014 - Depression - Environmental allergies - Herniated disc 2011 lumbar - Hypertension - Hypothyroid - Hypoxia On home O2 2LPM NC since 03/2016 - Myocardial infarct (HCC) 02/23/2017 - Obesity - Pneumonia 04/10/2016 - Type II or unspecified type diabetes mellitus withou t mention of complication, not stated as uncontrolled - Venous stasis ulcers (HCC) 06/09/2016 PAST SURGICAL HISTORY Procedure Laterality Date - PAST SURGICAL HISTORY OF tubal ligation FAMILY HISTORY Problem Relation Age of Onset - Diabetes Father - Diabetes Paternal Grandmother - Coronary Artery Disease Paternal Grandfather - other (Other) Mother sepsis - Asthma Daughter ICU adm, [facility] ventilation. Social History Substance Use Topics - Smoking status: Former Smoker Packs/day: 1.00 Years: 15.00 Start date: 02/27/1976 Quit date: 09/06/1991 - Smokeless tobacco: Never Used Comment: Father smoked pipe occasionally. Spouse prior chain smoker. - Alcohol use No Medications: Reviewed Allergies: ALLERGIES Allergen Reactions - Sulfa (Sulfonamide * Swelling Throat swelling - Doxycycline Hives, Shortness of Breath - Latex Other: See Comments Pt voices blistering on her hands after wearing gloves . Pt's legs are beet red after removing tubigrip. - Lipitor [Atorvastat* Other: See Comments Aching - Sulfate Salt Swelling Review of Systems: GENERAL: No weight loss, malaise or fevers HEENT: Negative for frequent or significant headaches, No changes in hearing or vision, no nose bleeds or other nasal probl ems NECK: Negative for lumps, goiter, pain and significant neck swelling RESPIRATORY: Negative for cough, hemoptysis, or shortn ess of breath from baseline CARDIOVASCULAR: Negative for chest pain, leg swelling, or palpitations GI: +abdominal pain +nausea +vomiting +loose stools. N o constipation MUSCULOSKELETAL: Negative for joint pain or swelling, back pain or muscle pain SKIN: Negative for lesions, rash, and itching HEMATOLOGY/LYMPHOLOGY: Negative for prolonged bleeding , bruising easily or swollen nodes ENDOCRINE: Negative for cold or heat intolerance, poly uria, polydipsia and goiter NEURO: No history of headaches, syncope, paralysis, se izures or tremors OBJECTIVE: PHYSICAL EXAM BP 110/79 Pulse 82 Temp 98.6 Resp 14 Wt 260 lb (117.9kg) SpO2 99% Physical Exam Performed: GENERAL: Alert, no distress, cooperative SKIN: Skin color, texture, turgor normal. No rashes or lesions. HEAD/SINUSES: No significant findings. AT/NC EYES: PERRLA, EOMI LUNGS: Lungs clear to auscultation, Good diaphragmatic excursion CARDIAC: RRR. Normal S1 and S2; no rubs, murmurs, or g allops ABDOMEN: +mild tenderness to palpation throughout gene ralized lower abdomen. No rigidity or guarding. No rebound tendernes s. Abdomen soft, non-tender, BS normal, No masses or organomegaly EXTREMITIES: Extremities normal, no deformities, edema , clubbing or skin discoloration. Good capillary refill., No ulcers NEURO: Gait normal. Reflexes normal and symmetric. Sen sation grossly intact, Cranial nerves II-XII intact PULSES: 2+ radial, 2+ dorsalis pedis Lines, Drains, and Airways Line Peripheral -- days Peripheral 04/18/18 1701 Short Right Antecubital 20 Ga uge less than 1 day Reviewed lines, drains, AND airways. Need to be contin ued Medical Therapy Diagnostic tests reviewed: Most recent labs and imagin g results CARE COORDINATION: No Patient Care Coordination Note on file. ASSESSMENT AND PLAN Assessment AND Plan, all Hosp Problems Active Hospital Problems as of 04/18/2018 Noted - Resolved Hospital Diverticulitis 04/18/2018 - Present Current Assessment AND Plan Assessment: Patient with reported abdominal pain nausea and vomiti ng x 1 week Prior history of diverticulitis five years ago managed outpatient CT abdomen findings consistent with acute diverticulit is without evidence of perforation or abscess Mild leukocytosis (11.9) on admission, afebrile Nausea and vomiting controlled in the ED with IV Zofra n C diff ordered in ED as patient noted loose stool this morning PLAN: Anti-emetics and pain control IVF Patient was tolerating orange juice in the ED, however had some mild nausea when trying to eat a sandwhich given by nursing staff Will start her on clear liquids and advance diet as to lerated Metronidazole and ceftriaxone Follow C diff results Uncontrolled type 2 diabetes mellitus 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 crow outpatient Patient has been taking her insulin over the past week and this morning despite decreased appetite, nausea, and vomiting BG found to be in the 30s-40s on arrival, given D5 and started on dextrose drip Patient takes U-500 humulin R (using U100 syringes) 80 units at breakfast, 9 units at lunch and 44 units in evening She states that she cannot use humalog, novolog or fernandez tus as it causes her to have hematuria and has not been able to tolerate it in the past PLAN: Continue D5 until blood sugars improve POC testing AC/HS Hypoglycemia protocol in place Patient tolerating clear liquids in the ED Will cut back on her insulin to half of her normal dos ing if she continues to tolerate oral intake Pulmonary hypertension (HCC) 09/27/2017 - Present Current Assessment AND Plan Assessment: Recent ECHO 02/27/2017 (post-AL) with worsening RVSP, 64 mmHg. Follow with pulmonology outpatient On 3L continuous home O2 chronically ? 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 Ramires No CP or increased breathing requirements EKG showing NSR, troponin negative Echocardiogram on 02/2017 showing Left ventricular sys tolic function is normal. EF = 60 ? 5%. Normal Right ventricular systoli c function. Moderate (2+) mitral valve regurgitation. Moderate pulmonary hy pertension PLAN: Continue diuretic, aCEI, BB, ASA and brillinta Medication and Non-Pharmacologic VTE Prophylaxis/Antic oagulants Anticoagulant AND Antiplatelet Medications Start Dose Route Frequency Ordered Stop 04/19/18 0900 aspirin, enteric coated 81 mg tab(s) 81 mg ORAL DAILY 04/18/181930 -- 04/18/18 2100 ticagrelor 90 mg tab(s) (BRILINTA) 90 mg ORAL 2 TIMES DAILY 04/18/181930 -- 04/18/181944 pneumatic compression stockings ([place], [place]) 04/18/181944 activity - mobilize patient ([place]) VTE Prophylaxis: VTE prophylaxis appropriate SIGNATURE: Yvonne Duenas PA-C PATIENT NAME: Monique Wharton DATE: April 18, 2018 TIME: 7:48 PM PAGER/CONTACT #: [phone] Lipase on 04-18-2018 Lipase enzyme act/vol 20 U/L Normal 16-61 [facility] Comment on above: Performed By: #### Jeremiah CHAN K, CMP, LIPA, MG1 #### [facility] [address] [facility] [phone] Magnesium on 04-18-2018 Magnesium mass conc 1.8 mg/dL Normal 1.7-2.3 [facility]ital Comment on above: Performed By: #### ROCIO C K, CMP, LIPA, MG1 #### [facility] [address] [address] Rapid PCR Assay FLU on 04-18-2018 Influenza A PCR Negative Normal [facility] Comment on above: Performed By: #### FLUPCR ## ## [facility] [address] [address] Influenza B PCR Negative Normal [facility] Comment on above: Performed By: #### FLUPCR ## ## [facility] [address] [place] [address] Specimen source Nom (Unsp spec) Nasopharyngeal Swab Normal [facility] Comment on above: Performed By: #### FLUPCR ## ## [facility] [address] [place] [address] Troponin T on 04-18-2018 Troponin T.cardiac mass conc ug/L Normal 0.000-0.029 [facility] Comment on above: Performed By: #### ELVIRA #### [facility] [address] [place] [address] Urinalysis on 04-18-2018 Bilirubin, Urine Negative Normal Negative [facility] Comment on above: Performed By: #### UA ####[facility] [id number] [place] [address] 0 Clarity Nom (U) Clear Normal Clear [facility] Comment on above: Performed By: #### UA ####[facility] [address] [place] [address] 0 Color Nom (U) Yellow Normal Yellow [facility] Comment on above: Performed By: #### UA ####[facility] [id number] [place] [address] 0 Glucose Ql (U) Negative Normal Negative [facility] Comment on above: Performed By: #### UA ####[facility] [address] [place] [address] 0 Hemoglobin/Blood,Ur Negative Normal Negative [facility] Comment on above: Performed By: #### UA ####[facility] [id number] [place] [address] 0 Ketones Ql (U) Negative Normal Negative [facility] Comment on above: Performed By: #### UA ####[facility] [id number] [place] [address] 0 Leukest Negative Normal Negative [facility] Comment on above: Performed By: #### UA ####[facility] [id number] [place] [address] 0 Nitrite Ql (U) Negative Normal Negative [facility] Comment on above: Performed By: #### UA ####[address] [address] 0 pH (Bld) 6.0 Normal 5.0-8.0 [facility] Comment on above: Performed By: #### UA ####[address] [place] [address] 0 Protein mass conc (U) Negative Normal Negative [facility] Comment on above: Performed By: #### UA ####[address] [place] [address] 0 Specific [place], Ur 1.015 Normal 1.001-1.029 [facility] Comment on above: Performed By: #### UA ####[address] [address] 0 Urobilinogen Qn (U) 0.2 Normal 0.2-1.0 [facility] Comment on above: Performed By: #### UA ####[address] [address] 0 XR CHEST 2V FRONTAL/LAT on 04-18-2018 XR CHEST 2V FRONTAL/LAT * * *Final Report* * * Normal [facility] DATE OF EXAM: Apr 18 2018 1:32PM MDX [id number] - XR CHEST 2V FRONTAL/LAT / 1828 PROCEDURE REASON: Fatigue and malaise * * * * Physician Interpretation * * * * EXAMINATION: CHEST RADIOGRAPH (2 VIEW FRONTAL and LATE RAL) CLINICAL HISTORY: Fatigue and malaise, MQ: XC2_5 Comparison: 03/12/2017 RESULT: Lines, tubes, and devices: None. Lungs and pleura: No consolidation. No lung mass. No p leural effusion. Cardiomediastinal silhouette: Cardiomegaly. IMPRESSION: No developing abnormality or acute process. Cardiomega ly. [employer] Operator: CONOR Transcribe Date/Time: Apr 18 2018 1:36P Dictated by : JUAN ORNELAS MD This examination was interpreted and the report review ed and electronically signed by: JUAN ORNELAS MD on Apr 18 2018 1:37PM EST [id number] Encounters Encounter Date Encounter Type Care Provider Facility Start: 05-31-2020 Patient encounter Augie Romero MD [facility] procedure Work Phone: [phone] Start: 04-30-2020 Patient encounter Augie Romero MD [facility] procedure Work Phone: [phone] Start: 01-30-2020 Patient encounter Augie Romero MD [facility] procedure Work Phone: [phone] Start: 09-26-2019 Patient encounter Augie Romero MD [facility] procedure Work Phone: Start: 06-20-2019 Patient encounter Augie Romero [facility] procedure Work Phone: Start: 06-10-2019 Patient encounter Augie Romero [facility] Work Phone: Start: 03-21-2019 Patient encounter Augie Romero [facility] procedure Work Phone: Start: 03-11-2019 Patient encounter Augie Romero [facility] procedure Work Phone: Start: 07-17-2018 Patient encounter Augie Romero [facility] procedure Work Phone: Start: 07-09-2018 Patient encounter Augie Romero [facility] procedure Work Phone: Start: 04-30-2018 Patient encounter Augie Romero [facility] Work Phone: Start: 04-18-2018 Evaluation and [facility] End: 04-21-2018 management of inpatient Start: 02-13-2018 Patient encounter Augie Romero [facility] procedure Work Phone: Start: 01-08-2018 Patient encounter Augie Jensenlianna [facility] procedure Work Phone: Start: 09-27-2017 Patient encounter Augie Romero [facility] procedure Work Phone: Start: 07-06-2017 Patient encounter Augie Jensenlianna [facility] procedure Work Phone: Start: 06-27-2017 Patient encounter Augie Romero [facility] procedure Work Phone: Procedures Date Procedure Procedure Detail Performing Clin ician History of Cath Placement Of Stent 1 Augie Romero Other bilateral ligation and division of Augie Romero fallopian tubes Immunizations Immunization Date Immunization Notes Care Provider Facility 10-30-2018 influenza, seasonal, Augie Romero [facility] injectable Work Phone: 11-26-2017 influenza, seasonal, Augie Romero [facility] injectable Work Phone: 11-02-2016 influenza, seasonal, Augie Romeor [facility] injectable; Translations: Wo rk Phone: [Influenza] 12-15-2015 pneumococcal conjugate [facility], 13 valent; Work Brit ne: Translations: [Prevnar 13 Intramuscular Suspension] 11-03-2015 influenza, injectable, Augie Romero [facility] quadrivalent, preservative W ork Phone: free; Translations: [Fluarix Quadrivalent 0.5 ML SUSP] 10-23-2014 influenza, injectable, Augie Jensenlianna [facility] quadrivalent, preservative W ork Phone: free; Translations: [Fluarix Quadrivalent 0.5 ML SUSP] 12-03-2013 influenza, seasonal, Augie Romero [facility] injectable Work Phone: 11-29-2012 influenza, seasonal, Augie Mikeylianna [facility] injectable Work Phone: 10-27-2011 influenza, seasonal, Augie Romero [facility] injectable Work Phone: 08-10-2010 pneumococcal [facility] polysaccharide vaccine, 23 W ork Phone: valent Social History Date Type Detail Facility NEGATED: Highlighted row - - [facility] Work Phone: Medical Equipment Procedure Code Equipment Code Equipment Original Equipment Identifi er Dates Text BD Insulin Syringe Start: Ultrafine 31G X 05-19-201307/11 1 ML MISC Quantity: 255 Refills: 0 Start : 19-May-2013 Active BD Insulin Syringe Start: Ultrafine 31G X 05-19-201307/11 1 ML MISC Quantity: 255 Refills: 0 Start : 19-May-2013 Active BD Insulin Syringe Start: Ultrafine 31G X 05-19-201307/11 1 ML MISC Quantity: 255 Refills: 0 Start : 19-May-2013 Active BD Insulin Syringe Start: Ultrafine 31G X 05-19-201307/11 1 ML MISC Quantity: 255 Refills: 0 Start : 19-May-2013 Active BD Insulin Syringe Start: Ultrafine 31G X 05-19-201307/11 1 ML MISC Quantity: 255 Refills: 0 Start : 19-May-2013 Active Functional Status Date Assessment Result Facility NEGATED: Highlighted Functional performance Functional status [facility] row health issues are not Work Phone : documented Disease Mental Status Date Assessment Result Facility NEGATED: Highlighted Cognitive function Cognitive status [facility] row [Interpretation] health issues are not Work Phon e: documented Disease Instructions Note Date & Type Note Facility Instructions Name Dates Details Instructions not documented [facility] Work Phone: Summary Purpose Family History No Family History Records Found natural daughter Name Dates Details Family history of systemic lupus erythematosus (V19.4, Z82.6 9) Status: Active Grandmother Name Dates Details Family history of malignant neoplasm (V16.9, Z80.9) Status: Active Family history of diabetes mellitus (V18.0, Z83.3) Status: Active Mother Name Dates Details Family history of sepsis (V18.8, Z83.1) Status: Active Family history of hypertension (V17.49, Z82.49) Status: Active natural daughter Name Dates Details Family history of systemic lupus erythematosus (V19.4, Z82.6 9) Status: Active Grandmother Name Dates Details Family history of malignant neoplasm (V16.9, Z80.9) Status: Active Family history of diabetes mellitus (V18.0, Z83.3) Status: Active Mother Name Dates Details Family history of sepsis (V18.8, Z83.1) Status: Active Family history of hypertension (V17.49, Z82.49) Status: Active natural daughter Name Dates Details Family history of systemic lupus erythematosus (V19.4, Z82.6 9) Status: Active Grandmother Name Dates Details Family history of malignant neoplasm (V16.9, Z80.9) Status: Active Family history of diabetes mellitus (V18.0, Z83.3) Status: Active Mother Name Dates Details Family history of sepsis (V18.8, Z83.1) Status: Active Family history of hypertension (V17.49, Z82.49) Status: Active natural daughter Name Dates Details Family history of systemic lupus erythematosus (V19.4, Z82.6 9) Status: Active Grandmother Name Dates Details Family history of malignant neoplasm (V16.9, Z80.9) Status: Active Family history of diabetes mellitus (V18.0, Z83.3) Status: Active Mother Name Dates Details Family history of sepsis (V18.8, Z83.1) Status: Active Family history of hypertension (V17.49, Z82.49) Status: Active natural daughter Name Dates Details Family history of systemic lupus erythematosus (V19.4, Z82.6 9) Status: Active Grandmother Name Dates Details Family history of malignant neoplasm (V16.9, Z80.9) Status: Active Family history of diabetes mellitus (V18.0, Z83.3) Status: Active Mother Name Dates Details Family history of sepsis (V18.8, Z83.1) Status: Active Family history of hypertension (V17.49, Z82.49) Status: Active Advance Directives No Advanced Directives Records FoundNo Advanced Directives Records FoundNo Advanced Directives Records FoundNo Advanced Directives Records Found Hospital Course Note HNO ID: [id number] Author: Mary penaloza Service: Hospital Medicine Author Type: Physician Type: Discharge Summaries File d: 04/22/2018 6:35 PM Note Text: DISCHARGE SUMMARY PATIENT NAME: Monique Moses de Status: Not on file Highest Readmission Risk Score: 20 The 30 day re admissions risk score is derived from an internally validated risk model which ev aluates patient level characteristics, utilization history, medication orders a nd lab results up until the day of discharge. Patients with a score of 40 or above are considered highest risk for readmission. Specific patient level drivers will be l isted at the bottom of the summary. Admission Information Admission Information ADMIT DATE: 04/18/2018 DISCHARGE DATE: 04/21/2018 [facility] Doctor: Mary Diaz Primary Care Provider: Augie Romero MD [facility] Members: Treatment Team: Attending Provider: Mary Diaz MY CONDITION AT DISCHARGE: Stable REASON I WAS IN THE HOSPITAL: D (more content not included). .. Additional Source Comments INFORMATION SOURCE (unrecognized section and content) DATE CREATED AUTHOR AUTHOR'S ORGANIZ ATION 04/22/2018 [facility] DATE CREATED AUTHOR AUTHOR'S ORGANIZATIO N 06/20/2019 [facility] DATE CREATED AUTHOR AUTHOR'S ORGANIZATIO N 07/08/2020 [facility] DATE CREATED AUTHOR AUTHOR'S ORGANIZATIO N 02/02/2021 [facility] FOR RECORDS PERTAINING TO PATIENTS WHO ARE OR HAVE BEEN ENROLLED IN A CHEMICAL DEPENDENCY/SUBSTANCE ABUSE PROGRAM, SOME INFORMATION MAY BE OMITTED. This clinical summary was aggregated from multiple sources. Caution should be exercised in using it in the provision of clinical care. This summary normalizes information from multiple sources, and as a consequence, information in this document may materially change the coding, format and clinical context of patient data. In addition, data may be omittedin some cases. CLINICAL DECISIONS SHOULD BE BASED ON THE PRIMARY CLINICAL RECORDS. [employer] provides no warranty or guarantee of the accuracy or completeness of information in this document.
--- NOTE | 2021-11-03 08:08 | EX.ED.DYSGE1 ---
HPI History of Present Illness Chief Complaint: Shortness of Breath Informant: patient and other Narrative Narrative: Patient is brought down from TCU secondary to increasing shortness of breath. She reports increased shortness of breath of the past couple days. Apparently overnight she went from requiring 3 L nasal cannula to 8. Report to nursing staff was that she had bilateral pleural effusions and CHF and needed BiPAP. Patient denies fever. She has had cough with sputum production but does not bring it up. She reports increasing shortness of breath. No nausea or vomiting. She does report decreased p.o. intake. [facility] Medical History Acute cervical myofascial strain Acute on chronic respiratory failure with hypoxemia Amputated toe of left foot Anemia Asthma Atherosclerotic heart disease of enterprise coronary artery without angina pectoris Atrial fibrillation CAD (coronary artery disease) Chronic heart failure with preserved ejection fraction (HFpEF) Chronic heel ulcer Chronic respiratory failure with hypoxia, on home oxygen therapy Chronic ulcer of great toe of left foot Closed head injury Congestive heart failure (CHF) COPD (chronic obstructive pulmonary disease) Decubitus ulcer of dorsum of foot, stage 2 Decubitus ulcer of left heel, stage 2 Decubitus ulcer of left heel, stage 3 Decubitus ulcer, heel, left, unstageable Depression Diabetes mellitus with diabetic polyneuropathy Diabetes type 2, controlled Diabetic foot ulcers Diverticulitis Essential hypertension Former smoker History of amputation of left great toe History of non-ST elevation myocardial infarction (NSTEMI) (02/24/17) Hyperlipidemia Hypothyroid Myocardial infarct Non-rheumatic tricuspid valve insufficiency Nondisplaced fracture of distal phalanx of right great toe, initial encounter for closed fracture Nonrheumatic mitral (valve) insufficiency Obesity Obstructive sleep apnea On home O2 Renal insufficiency Secondary pulmonary arterial hypertension Type 2 diabetes mellitus Home Medications bupropion HCl 300 mg 24 hr tablet, extended release 300 mg PO QHS depression 09/02/20 [History Last Taken 10/13/21] cholecalciferol (vitamin D3) 50 mcg (2,000 unit) capsule (Vitamin D3) 50 mcg PO DAILY supplement 09/02/20 [History Last Taken 10/14/21 09:30] fluticasone furoate 100 mcg-vilanterol 25 mcg/dose inhalation powder (Breo Ellipta) 1 inh inhalation DAILY breathing 09/02/20 [History Last Taken 10/14/21] fluticasone propionate 50 mcg/actuation nasal spray,suspension 1 spray intranasal DAILY PRN Allergies 09/02/20 [History Last Taken 09/02/20] furosemide 80 mg tablet 80 mg PO DAILY water pill 09/02/20 [History Last Taken 10/14/21] levothyroxine 88 mcg tablet 88 mcg PO DAILY thyroid 09/02/20 [History Last Taken 10/14/21] lorazepam 1 mg tablet 1 mg PO QHS anxiety 09/02/20 [History Last Taken 10/13/21] montelukast 10 mg tablet 10 mg PO DAILY allergies 09/02/20 [History Last Taken 10/14/21] trazodone 100 mg tablet 100 mg PO QHS sleep 09/02/20 [History Last Taken 10/13/21] aspirin 81 mg tablet,delayed release (Adult Aspirin Regimen) 81 mg PO DAILY heart 05/17/21 [History Last Taken 10/14/21 09:30] amlodipine 10 mg tablet 10 mg PO DAILY bp 08/25/21 [History Last Taken 10/14/21 09:30] gabapentin 100 mg capsule (Neurontin) 100 mg PO TID nerve pain 08/25/21 [History Last Taken 10/14/21] dulaglutide 0.75 mg/0.5 mL subcutaneous pen injector (Trulicity) 0.75 mg subcut QWEEK dm 09/02/21 [History Last Taken 10/10/21] insulin detemir U-100 100 unit/mL (3 mL) subcutaneous pen 37 unit subcut QHS blood sugar 09/02/21 [History Last Taken 10/13/21] insulin lispro 100 unit/mL subcutaneous pen See Protocol subcut QACHS blood sugar 09/02/21 [History Last Taken 10/14/21] ipratropium 0.5 mg-albuterol 3 mg (2.5 mg base)/3 mL nebulization soln 3 ml inhalation BID PRN sob 09/02/21 [History Last Taken Unknown] paroxetine HCl 30 mg tablet 60 mg PO QHS mental health 09/02/21 [History Last Taken 10/13/21] hydrocodone-acetaminophen 5-325mg 5mg-325mg 1 tab PO Q6H PRN pain 3 days #12 tabs 10/02/21 [Rx Last Taken 10/14/21] atorvastatin 80 mg tablet 80 mg PO QHS Cholestrol 10/22/21 [History Last Taken Unknown] carvedilol 6.25 mg tablet 6.25 mg PO BID BP 10/22/21 [History Last Taken Unknown] cephalexin 500 mg capsule 500 mg PO Q8 Antibiotic 10/22/21 [History Last Taken Unknown] nystatin 100,000 unit/mL oral suspension 500,000 unit PO 4X/DAY Thrush 10/22/21 [History Last Taken Unknown] pantoprazole 40 mg tablet,delayed release 40 mg PO BID GERD 10/22/21 [History Last Taken Unknown] prednisone 20 mg tablet 40 mg PO BREAKFAST Steroid 10/22/21 [History Last Taken Unknown] Allergy/AdvReac Type Severity Reaction Status Date / Time Sulfa (Sulfonamide Allergy Anaphylaxis Verified 11/03/21 08:07 Antibiotics) sulfur dioxide Allergy Anaphylaxis Verified 11/03/21 08:07 Family History Grandmother Diabetes Mother Heart disease Surgical History H/O right heart catheterization History of cataract surgery History of coronary artery stent placement (02/24/17) Tubal ligation status Social History household members: none housing: other details: [facility]. Smoking Status: Former smoker how long ago did patient quit smokin alcohol intake: former year quit: 1999 substance use type: does not use caffeine: Yes Type: carbonated beverages and tea ROS ROS ED Constitutional Constitutional ED: Denies chills or fever(s) Eyes Eyes: Denies change in vision or discharge from eye(s) ENT ENT ED: Denies discharge from eye(s), rhinorrhea or sore throat Cardiovascular Cardiovascular: Denies chest pain or palpitations Respiratory/Chest Respiratory/Chest: Reports cough and dyspnea Gastrointestinal Gastrointestinal: Denies abdominal pain, diarrhea, nausea or vomiting Genitourinary Genitourinary ED: Denies difficulty urinating or dysuria Musculoskeletal Musculoskeletal: Denies extremity pain Integumentary Denies Abrasions or rash Neurologic Neurologic: Reports weakness; Denies headache(s) Allergic/Immunologic Allergic/Immunologic ED: Denies lip swelling or urticaria EXAM Physical Exam Const Vital Signs: 11/03/21 08:03 11/03/21 08:08 11/03/21 08:10 Temperature 97.3 F L Temperature Source Oral Pulse Rate 100 Respiratory Rate 30 H Respiratory Effort Short of Breath Respiratory Pattern Tachypnea Blood Pressure 125/65 H Blood Pressure Mean 85 Pulse Ox 98 99 Oxygen Delivery Method Nasal Cannula Bi-pap Bi-pap Oxygen Flow Rate (L/min) 8 Fraction of Inspired Oxygen (FIO2) 30 11/03/21 08:10 11/03/21 08:15 11/03/21 08:20 Temperature Temperature Source Pulse Rate 99 Respiratory Rate 28 H Respiratory Effort Respiratory Pattern Tachypnea Blood Pressure Blood Pressure Mean Pulse Ox 93 92 94 Oxygen Delivery Method Oxygen Flow Rate (L/min) Fraction of Inspired Oxygen (FIO2) 35 30 35 Positive well nourished and well developed General Appearance ED: well developed HEENT Reports moist mucous membranes Eyes PERRL and EOMs intact bilaterally Chest Wall inspection of chest normal and palpation of chest normal Resp Resp Narrative: Diminished with crackles at the bilateral bases. Cardio regular rate and regular rhythm GI non-tender Palpation: soft Neuro oriented x3 and no sensory deficits noted Neuro Narrative: No focal neurologic deficits. MDM MDM MDM Narrative Medical decision making narrative: Patient placed on BiPAP. Prior work-up reviewed including CTA performed yesterday revealing no evidence of PE. Lab work, chest x-ray, cultures obtained. EKG ordered. Lab Data Attestation: I reviewed the patient's lab results. Labs: Laboratory Results - last 24 hr 11/03/21 11/03/21 11/03/21 08:15 08:15 08:15 WBC 9.3 RBC 2.88 L Hgb 8.1 L Hct 26.6 L MCV 92.4 MCH 28.1 MCHC 30.5 L RDW Std Deviation 52.8 H RDW Coeff of Magen 15.7 H Plt Count 136 L MPV 11.2 Immature Gran % (Auto) 0.500 Neut % (Auto) 95.9 H Lymph % (Auto) 2.5 L [place] % (Auto) 1.0 Eos % (Auto) 0.0 Baso % (Auto) 0.1 Absolute Neuts (auto) 8.9 H Absolute Lymphs (auto) 0.23 L Nucleated RBC % 0 Differential Comment COMMENT Sodium 142 Potassium 4.2 Chloride 101 Carbon Dioxide 32.0 Anion Gap 9 BUN 48 H Creatinine 1.35 H Estim Creat Clear Calc 37.38 Est GFR (MDRD) Af Amer 51 L Est GFR (MDRD) Non-Af 42 L BUN/Creatinine Ratio 35.6 H Glucose 309 H Calcium 9.5 Troponin I High Sens 18 B-Natriuretic Peptide 211.0 H Radiography Chest X-Ray - ED: 1 View, Read by ED Physician, Right Infiltrate and Left Infiltrate Diagnostic Testing: Clinical Impression(s) from Imaging Studies Chest X-Ray 11/03/21 08:18 IMPRESSION: Aggressive infiltrates in the right hemithorax with the residual left pulmonary infiltrates although there has been improved aeration as compared to prior study. Questionable 4.27 x 4.1 cm cavitated nodule in the left lung base. Electronically Signed: Butch Ling MD at 8:35 EDT , EKG Initial EKG: Attestation: I personally reviewed and interpreted this EKG as follows: Interpretation: Sinus Rhythm (Sinus at [address] with [address]. No acute ST change.) Treatment and Re-Evaluation Narrative: Patient's FiO2 was able to be titrated down to 30% on the BiPAP. She does report that she is breathing easier. Respiratory rate has improved. Lab work reveals normal white count but left shift is noted. Chemistry studies reveal creatinine 1.35, consistent with her baseline. Glucose is elevated at 309. Troponin is normal at 18. BNP is only 211. Chest x-ray reveals bilateral infiltrates. Due to concern for this potentially being pneumonia as opposed to all related to CHF, she is given a dose of Zosyn and vancomycin. IV Lasix is also been ordered. COVID test was performed on the sixth but will be repeated at this time. I will speak with hospitalist regarding admission. Discharge Plan Triage Chief Complaint: Shortness of Breath ED Provider: Maya Hernandez Dx/Rx/DC Orders Clinical Impression: Pneumonia, CHF (congestive heart failure), Respiratory failure Prescriptions: No Action aspirin [Adult Aspirin Regimen] 81 mg tablet,delayed release (DR/EC) 81 mg PO DAILY Trulicity 0.75 mg/0.5 mL pen injector 0.75 mg subcut QWEEK Label Comments: 0.5 ML (0.75MG) SQ EVERYMWEEK DX:X Rx Instructions: pt takes on mondays PT TO BRING IN OWN MEDICATION levothyroxine 88 mcg Tablet 88 mcg PO DAILY furosemide 80 mg Tablet 80 mg PO DAILY trazodone 100 mg Tablet 100 mg PO QHS montelukast 10 mg Tablet 10 mg PO DAILY lorazepam 1 mg Tablet 1 mg PO QHS fluticasone propionate 50 mcg/actuation [place],Suspension 1 spray INTRANASAL DAILY PRN (Reason: Allergies) bupropion HCl 300 mg Tablet Extended Release 24 Hr 300 mg PO QHS cholecalciferol (vitamin D3) [Vitamin D3] 50 mcg (2,000 unit) Capsule 50 mcg PO DAILY fluticasone furoate-vilanterol [Breo Ellipta] 100-25 mcg/dose Blister With Device 1 inh INHALATION DAILY ipratropium-albuterol 0.5 mg-3 mg(2.5 mg base)/3 mL solution for nebulization 3 ml INHALATION BID PRN (Reason: sob) insulin lispro 100 unit/mL insulin pen See Protocol SUBCUT QACHS Protocol: 6. Sliding Scale Insulin Custom Condition: 151-175 Dose/Route: 5 Condition: 176-200 Dose/Route: 7 Condition: 201-250 Dose/Route: 9 Condition: 251-300 Dose/Route: 11 Condition: 301-350 Dose/Route: 13 Condition: 351-400 Dose/Route: 15 Condition: 401-450 Dose/Route: 19 Protocol Text: Custom Sliding Scale Rx Instructions: 10 units plus sliding scale. SEE SLIDING SCALE paroxetine HCl 30 mg tablet 60 mg PO QHS insulin detemir U-100 100 unit/mL (3 mL) insulin pen 37 unit SUBCUT QHS amlodipine 10 mg Tablet 10 mg PO DAILY gabapentin [Neurontin] 100 mg Capsule 100 mg PO TID hydrocodone-acetaminophen 5-325 mg tablet 1 tab PO Q6H PRN (Reason: pain) 3 Days Qty: 12 0RF atorvastatin 80 mg tablet 80 mg PO QHS carvedilol 6.25 mg tablet 6.25 mg PO BID cephalexin 500 mg capsule 500 mg PO Q8 nystatin 100,000 unit/mL suspension 500,000 unit PO 4X/DAY prednisone 20 mg tablet 40 mg PO BREAKFAST pantoprazole 40 mg tablet,delayed release (DR/EC) 40 mg PO BID Primary Care Provider: Froy Gonzales Referrals: Froy Gonzales MD [Primary Care Provider] - Disposition Disposition: Acute Care Hospital [facility]
--- NOTE | 2021-11-03 08:18 | RAD_ITS ---
STUDY: X-RAY CHEST REASON FOR EXAM: Female, 66 years old. Sob TECHNIQUE: Single AP portable view of the chest. COMPARISON: Comparison is made with prior study dated 11/01/2021. FINDINGS: EKG electrodes are seen. Since prior study, there has been progressive infiltration in the right hemithorax. Residual infiltrates in the left hemithorax although there has been improved aeration of the left upper lobe. Questionable 4.27 x 4.1 cm cavitated nodule at the left lung base. Blunting of both costophrenic angles. Normal size heart. Normal mediastinum and sol. Normal visualized pulmonary arteries. Normal visualized aortic arch and descending thoracic aorta. There are diffuse degenerative changes of the visualized thoracic spine. Normal visualized ribs, clavicles, and shoulders. There is no demonstrated abnormality of the visualized soft tissue structures of the upper abdomen. RAD/Chest 1 View (Portable) IMPRESSION: Aggressive infiltrates in the right hemithorax with the residual left pulmonary infiltrates although there has been improved aeration as compared to prior study. Questionable 4.27 x 4.1 cm cavitated nodule in the left lung base. Electronically Signed: Butch Ling MD at 8:35 EDT ,
[2021-11-03 08:19] LABS: Absolute Lymphocyte Count 0.23 X10^3/uL (0.83-4.51); Absolute Neutrophil Count 8.9 X10^3/uL (2.0-7.7); Basophil# 0.01 X10^3/uL; Basophil% 0.1 % (0-1); Hematocrit 26.6 % (37-47); Hemoglobin 8.1 g/dL (12.0-15.0); Lymphocyte # 0.23 X10^3/ul (0.83-4.51); Lymphocyte % 2.5 % (19-41); Mean Corp Hgb Conc 30.5 g/dL (32-36); Mean Corpuscular Hgb 28.1 pg (27.0-32.0); Mean Corpuscular Volume 92.4 fL (81-99); Mean Platelet Vol. 11.2 fl (6.2-12.0); Monocyte# 0.09 X10^3/uL; NRBC Flagged by Analyzer 0 % (0-5); Neutrophil % 95.9 % (47-70); POSITIVE DIFFERENTIAL YES; Platelet Count 136 K/mm3 (150-450); RBC Distribution Width CV 15.7 % (11.6-14.6); RBC Distribution Width SD 52.8 fl (35.1-43.9); Red Blood Count 2.88 M/mm3 (4.2-5.4); White Blood Count 9.3 K/mm3 (4.4-11.0)
[2021-11-03 08:20] LABS: Differential Indicated SCAN CRITERIA MET
--- OUTSIDE RECORDS SUMMARY | 2021-11-03 08:29 | XMS RPT_ITS | CCD ---
:1955 Author Organization [facility] Care Team Providers Name Role Phone CHEPE BALLESTEROS Admitting Unavailable MARY DIAZ Attending Unavailable Augie Romero Unavailable Augie Mccrary Unavailable Unavailable Zena Coronado Unavailable Unavailable Augie Romero MD Unavailable Unavailable Augie Romero Unavailable Unavailable Zena Coronado MD Unavailable Unavailable Allergies Allergy Reported Allergy Type Date of Reaction(s) Facility Classification Allergen(s) Onset HMG-CoA Reductase Inhibitors (statins) atorvastatin Drug Allergy Myalgia [facility] (1 source) Work Phone: Sulfonamides (antibiotic) Sulfonamides Drug Allergy [facility] (2 sources) (Antibiotic); Work Phone : Translations: [Sulfa Drugs] atorvastatin; Drug Allergy Myalgia [facility] (5 sources) Translations: 8 [facility] O[facility] [ATORVASTATIN] [facility] Rep[facility] Doxycycline; Drug Allergy [facility] (1 source) Translations: 5 [facility] [DOXYCYCLINE] [facility] Rep[facility] Latex; Propensity to [facility] (1 source) Translations: adverse 5 [facility] [LATEX] reactions to [place] drug Repository (disorder) Sulfonamides [facility] to [facility] (1 source) (Antibiotic); adverse 0 [facility] Translations: reactions to [place] [SULFA drug Repository (SULFONAMIDE (disorder) ANTIBIOTICS)] SULFATE SALT; Propensity to [place] [facility] (1 source) Translations: adverse 7 [facility] [SULFATE SALT] reactions to [place] drug Repository (disorder) Sulfonamides Allergy to [facility] (4 sources) (Antibiotic) drug (finding) Work Ph one: Sulfonamides Allergy to [facility] (4 sources) (Antibiotic) drug (finding) Work Ph one: Medications Completed/Discontinued Medications Medication Drug Class(es) Dates Sig (Normalized) Sig (Orig inal) [id number] 60 actuat albuterol 0.09 mg/actuat metered d [...] rt : 07-Feb-2015 Active polyethylene glycol 3350 14291 mg powder for oral solution O smotic [...] [Coronary atherosclerosis of unspecified type of vessel, [place] or graft] Deficiency and other anemia Anemia; [...] sources) of drug therapy; Translations: [History of correction current use of opiate analgesic] NEGATED: Highlighted row has not occurred!Residual codes; unclas sified Disease Episodic (20 sources) Results Test Name Value Interpretation Reference Range Facility OBSOLETE on 05-27-2020 OBSOLETE Refill (AGCARDPOB) Normal [place] MONIQUE Cramer ([id number]) 1955 F Medical Date Time Provider Department [...] O2 [address]. [address] ease fax results to [phone]. Assoc DX: J45.909. - COMPOUNDED PRESCRIPTION Please dispense disability placard. Expiration date: . DX: Coronary artery disease I25.10. - aspirin, enteric coated (ASPIRIN, ENTERIC COATED) 81 mg EC tablet Take 1 tablet by mouth once daily. - fluticasone (FLONASE) 50 mcg/actuation nasal spray Use 1 [place] in each nostril daily at bedtime. - [...] for 3 months anxiety = telephone call [phone]. 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 Office Visit (Family [...] breath, wheezing)- 2) Have you returned from [facility] from [place] OR outside of the in the last [...] of Immunization due (V05.9) (Z23) History of correction current use of opiate analgesic ( V58.69) (Z79.891) History of Opiate analgesic use agreement exists (more content not included)... TAIWO - [facility] [place] on 07-13-2019 TAIWO - [facility] [place] [facility] Normal [employer] [place], [place] MONIQUE LINCOLN January Date of Female Sex [id number] [place] [address] AddressEnglish (preferred) Language White Race Not or Ethnicity Summary of Care Clinical Content Allergies and Adverse Reacti ons <#[id number]> Encounters <#EY5MIWYS> Family History <#MQ1WUOAM> Functional Status <#[id number]> Immunization <#[id number]> Instructions <#ID0ER PEK> Interventions Provided <#HB6NTFBP> Medications <#SN1RZODC> Past Medical History <#[id number]> Plan of Care <#RR5IDKFR> Problems <#TA5OMIVF> Procedures <#YS8L0CYO> Results <#UP2FTYGL> Social History <#AP3P0QCI> Vital Signs <#BA1KJWFV> Other Document Details Health Care Providers Functional [...] 0 Augie Romero MD 20 ML Vial [employer] [facility] Ultra Blue STRP Quantity: 255 Refills: 0 Star t : 12-Jun-2012 traZODone HCl - 100 MG Oral Tablet TAKE 1 TABLET BY MOUTH EVERYDAY AT BEDTIME Quantity: 90 Refills: 3 Augie Romero MD Start : 20-Sep-2012 [employer] [facility] Ultra Mini w/Device Kit Quantity: 1 Refills: [...] [Mass/Vol] 3.7 g/dL Normal 3.4 - 5.0 [facility] Comment on above: Performed By: #### CMP #### [facility] [address] [place] [address] ALP [Catalytic activity/Vol] 109 U/L Normal 33 - 136 [facility] Comment on above: Performed By: #### CMP #### [facility] [address] [place] [address] ALT [Catalytic activity/Vol] 17 U/L Normal 7 - 45 [facility] Comment on above: Result Comment: Patients sally ated with Sulfasalazine may generate falsely decreased results fo r ALT. Performed By: #### CMP #### [facility] [address] [place] [address] Anion gap [Moles/Vol] 14 mmol/L Normal 10 - 20 [facility] Comment on above: Performed By: #### CMP #### [facility] [address] [place] [address] AST [Catalytic activity/Vol] 19 U/L Normal 9 - 39 [facility] Comment on above: Performed By: #### CMP #### [facility] [address] [place] [address] Bilirubin [Mass/Vol] 0.5 mg/dL Normal 0.0 - 1.2 [facility] Comment on above: Performed By: #### CMP #### [facility] [address] [place] [address] Calcium [Mass/Vol] 9.7 mg/dL Normal 8.6 - 10.6 [facility] Comment on above: Performed By: #### CMP #### [facility] [address] [place] [address] Chloride [Moles/Vol] 99 mmol/L Normal 98 - 107 [facility] Comment on above: Performed By: #### CMP #### [facility] [address] [place] [address] Creatinine [Mass/Vol] 0.81 mg/dL Normal 0.50 - 1.05 [facility] Comment on above: Performed By: #### CMP #### [facility] [address] [place] [address] GFR- AM. >60 Normal >60 [facility] Comment on above: Result Comment: CALCULATIONS OF ESTIMATED GFR ARE PERFORMED USING THE MDRD STUDY EQUATIO N FOR THE IDMS-TRACEABLE CREATININE ME THODS. CLIN CHEM 2007;53:766-72 Performed By: #### CMP #### [facility] [address] [place] [address] GFR-NON AM. >60 Normal >60 [facility] Comment on above: Performed By: #### CMP #### [facility] [address] [place] [address] Glucose [Mass/Vol] 173 mg/dL High 74 - 99 [facility] Comment on above: Performed By: #### CMP #### [facility] [address] [place] [address] HCO3 (Bld) [Moles/Vol] 33 mmol/L High 21 - 32 [facility] Comment on above: Performed By: #### CMP #### [facility] [address] [place] [address] Potassium [Moles/Vol] 3.3 mmol/L Low 3.5 - 5.3 [facility] Comment on above: Performed By: #### CMP #### [facility] [address] [place] [address] Protein [Mass/Vol] 6.7 g/dL Normal 6.4 - 8.2 [facility] Comment on above: Performed By: #### CMP #### [facility] [address] [place] [address] Sodium [Moles/Vol] 143 mmol/L Normal 136 - 145 [facility] Comment on above: Performed By: #### CMP #### [facility] [address] [place] [address] Urea nitrogen [Mass/Vol] 13 mg/dL Normal 6 - 23 [facility] Comment on above: Performed By: #### CMP #### [facility] [address] [place] [address] LIPID PANEL (CORONARY RISK 2) on 2018 Cholesterol [Mass/Vol] 176 mg/dL Normal 0 - 199 [facility] Comment on above: Result Comment: [...] Performed By: #### LIPID ### # [facility] [address] [place] [address] Cholesterol in HDL [Mass/Vol] 34.0 mg/dL Abnormal [facility] Comment on above: Result Comment: . AGE VERY LOW LOW NORMAL HIGH 0-19 Y < 35 < 40 40-45 ---- 20-24 Y ---- < 40 >45 ---- >24 Y ---- < 40 40-60 >60 . Performed By: #### LIPID ### # [facility] [address] [place] [address] Cholesterol in LDL [Mass/Vol] 109 mg/dL High 0 - 99 [facility] Comment on above: Result Comment: . NEAR BORD AGE DESIRABLE OPTIMAL HIGH H IGH VERY HIGH 0-19 Y 0 - 109 --- 110-129 > /= 130 ---- 20-24 Y 0 - 119 --- 120-159 >/= 160 ---- >24 Y 0 - 99 100-129 130-159 160-189 >/=190 . Performed By: #### LIPID ### # [facility] [address] [place] [address] Cholesterol in VLDL [Mass/Vol] 33 mg/dL Normal 0 - 40 [facility] Comment on above: Performed By: #### LIPID ### # [facility] [address] [place] [address] Cholesterol.total/Cholesterol in HDL 5.2 {ratio} Abnormal [facility] [Mass ratio] [facility] Comment on above: Result Comment: REF VALUES DESIRABLE < 3.4 HIGH RISK > 5.0 Performed By: #### LIPID ### # [facility] [address] [place] [address] Triglyceride [Mass/Vol] 164 mg/dL High 0 - 149 [facility] Comment on above: Result Comment: . [...] dosing. Performed By: #### LIPID ### # [facility] [address] [place] [address] CBC on 07-17-2018 Erythrocyte distribution width 13.5 % Normal 11.5 - 14. 5 [facility] (RBC) [Ratio] Comment on above: Performed By: #### CBC #### [facility] [address] [place] [address] Hematocrit (Bld) [Volume 39.2 % Normal 36.0 - 46.0 [facility] fraction] Comment on above: Performed By: #### CBC #### [facility] [address] [place] [address] Hemoglobin (Bld) [Mass/Vol] 12.3 g/dL Normal 12.0 - 16.0 [facility] Comment on above: Performed By: #### CBC #### [facility] [address] [place] [address] MCHC (RBC) [Mass/Vol] 31.4 g/dL Low 32.0 - 36.0 [facility] Comment on above: Performed By: #### CBC #### [facility] [address] [place] [address] MCV (RBC) [Entitic vol] 95 fL Normal 80 - 100 [facility] Comment on above: Performed By: #### CBC #### [facility] [address] [place] [address] Nucleated RBC/100 WBC (Bld) 0.0 /100 WBC Normal 0.0-0.0 [facility] [Ratio] Comment on above: Performed By: #### CBC #### [facility] [address] [place] [address] Platelets (Bld) [#/Vol] 193 10*3/uL Normal 150 - 450 [facility] Comment on above: Performed By: #### CBC #### [facility] [address] [place] [address] RBC (Bld) [#/Vol] 4.12 x10E12/L Normal 4.00 - 5.20 [facility] Comment on above: Performed By: #### CBC #### [facility] [address] [place] [address] WBC (Bld) [#/Vol] 8.0 10*3/uL Normal 4.4 - 11.3 [facility] Comment on above: Performed By: #### CBC #### [facility] [address] [place] [address] TSH on 07-17-2018 TSH Qn 3.18 m[IU]/L Normal 0.44 - 3.98 [facility] Comment on above: Result Comment: TSH testing is performed using different testing methodology at [facility] than at other [facility]. Direct res ult comparisons should only be made within the same method. . Patients receiving more than 5 mg/day of biotin may have interference in test results. A sample sh ould be taken no sooner than eight hours after previous dose. Contact [phone] for additional information. Performed By: #### TSH2 #### [facility] [address] [place] [address] Basic Metabolic Panl on 04-21-2018 Anion gap molar conc 13 mmol/L Normal 9-18 [facility] Comment on above: Performed By: #### CBC, BMP ####[facility] [address] [place] [address] 0 Calcium mass conc 9.4 mg/dL Normal 8.5-10.2 [facility]ital Comment on above: Performed By: #### CBC, BMP ####[facility] [address] [place] [address] 0 Chloride molar conc 101 mmol/L Normal 97-105 [facility]spital Comment on above: Performed By: #### CBC, BMP ####[facility] [address] [place] [address] 0 CO2 molar conc 24 mmol/L Normal 22-30 [facility] Comment on above: Performed By: #### CBC, BMP ####[facility] [address] [place] [address] 0 Creatinine mass conc 0.98 mg/dL High 0.58-0.96 [facility] Comment on above: Performed By: #### CBC, BMP ####[facility] [address] [place] [address] 0 eGFR- Amer. >60 Normal [facility] Comment on above: Performed By: #### CBC, BMP ####[facility] [address] [place] [address] 0 GFR/1.73 sq M predicted among non-blacks MDRD vol 58 . Norm al [facility] rate/area (S/P/Bld) Comment on above: Result Comment: [...] actual GFR. Performed By: #### CBC, BMP ####[facility] [address] [place] [address] 0 Glucose mass conc 258 mg/dL High 74-99 [facility] Comment on above: Result Comment: The [place] [employer] (ADA) provides guidance for cutoff [...] for diagnosis of diabetes. Reference: Standards of [facility] Care in Diabetes 2016, [place] [employer]. Diabetes Care. 2016.39(Suppl 1). Performed By: #### CBC, BMP ####[facility] [address] [place] [address] 0 Potassium molar conc 4.3 mmol/L Normal 3.7-5.1 [facility] Comment on above: Performed By: #### CBC, BMP ####[facility] [address] [place] [address] 0 Sodium molar conc 138 mmol/L Normal 136-[address] [facility] Comment on above: Performed By: #### CBC, BMP ####[facility] [address] [place] [address] 0 Urea nitrogen mass conc 14 mg/dL Normal 7-21 [facility] Comment on above: Performed By: #### CBC, BMP ####[facility] [address] [place] [address] 0 CBC on 04-21-2018 Erythrocyte distribution width Ratio (RBC) 13.1 % Normal 11.5-15.0 [facility] Comment on above: Performed By: #### CBC, BMP ####[facility] [address] [place] [address] 0 Hematocrit Volume Fraction (Bld) 33.3 % Low 36.0-46. 0 [facility] Comment on above: Performed By: #### CBC, BMP ####[facility] [address] [place] [address] 0 Hemoglobin mass conc (Bld) 10.7 g/dL Low 11.5-15.5 [facility] Comment on above: Performed By: #### CBC, BMP ####[facility] [address] [place] [address] 0 MCH Entitic mass (RBC) 31.8 pG Normal 26.0-34.0 [facility] Comment on above: Performed By: #### CBC, BMP ####[facility] [address] [place] [address] 0 MCHC mass conc (RBC) 32.1 g/dL Normal 30.5-36.0 [facility] Comment on above: Performed By: #### CBC, BMP ####[facility] [address] [place] [address] 0 MCV Entitic volume (RBC) 98.8 fL Normal 80.0-100.0 [facility] Comment on above: Performed By: #### CBC, BMP ####[facility] [address] [place] [address] 0 Platelet mean volume Entitic volume (Bld) 11.0 fL Normal 9.0-12.7 [facility] Comment on above: Performed By: #### CBC, BMP ####[facility] [address] [place] [address] 0 Platelets #/vol (Bld) 132 10*3/uL Low 150-400 [facility] Comment on above: Performed By: #### CBC, BMP ####[facility] [address] [place] [address] 0 RBC #/vol (Bld) 3.37 10*6/uL Low 3.90-5.20 [facility] Comment on above: Performed By: #### CBC, BMP ####[facility] [address] [place] [address] 0 WBC #/vol (Bld) 5.88 10*3/uL Normal 3.70-11.00 [facility] Comment on above: Performed By: #### CBC, BMP ####[facility] [address] [place] [address] 0 CNCO on 04-21-2018 CNCO Letter Text Normal [facility] April 21, 2018 Monique Lincoln [address] [facility] [address] Dear Ms. Lincoln, The nurses and staff of [facility] hope this woodrow er finds you feeling [...] comments, questions or concerns about your [facility] stay, please feel free to contact [...] participation and thank you for choosing the [facility] for your health needs. Sincerely, Nurse Religion Department Chair: Emma Bass RN ([phone]) [facility] Unit: 2 South Basic Metabolic Panl on 04-20-2018 Anion gap molar conc 7 mmol/L Low 9-18 [facility] Comment on above: Performed By: #### CBC, BMP ####[facility] [address] [place] [address] 0 Calcium mass conc 9.1 mg/dL Normal 8.5-10.2 [facility] Comment on above: Performed By: #### CBC, BMP ####[facility] [address] [place] [address] 0 Chloride molar conc 101 mmol/L Normal 97-105 [facility] Comment on above: Performed By: #### CBC, BMP ####[facility] [address] [place] [address] 0 CO2 molar conc 30 mmol/L Normal 22-30 [facility] Comment on above: Performed By: #### CBC, BMP ####[place] [address] 0 Creatinine mass conc 1.46 mg/dL High 0.58-0.96 [facility] Comment on above: Performed By: #### CBC, BMP ####[facility] [address] [place] [address] 0 eGFR- Amer. 44 Normal [facility] Comment on above: Performed By: #### CBC, BMP ####[facility] [address] [place] [address] 0 GFR/1.73 sq M predicted among non-blacks MDRD vol 36 . Norm al [facility] rate/area (S/P/Bld) Comment on above: Result Comment: eGFR (Estima ravi GFR) Units of measure: mL/min/1.73 meters squared eGFR is derived from the ree xpressed MDRD Study equation using the following parameters: serum creatinine, age, gender and race. The creatinine assay has been calibrated to be traceable to IDVT. An eGFR <60 mL/min/1.73m2 fo r >3 months is consistent with chronic kidney disease. Refer to KDOQI guidelines for clinical interpretation. In patients with unstable re nal function, e.g. those with acute kidney injury, the eGFR may not accurately reflect actual GFR. Performed By: #### CBC, BMP ####[facility] [address] [place] [address] 0 Glucose mass conc 105 mg/dL High 74-[address] [facility] Comment on above: Result Comment: The [place] Diabetes [employer] (ADA) provides guidance for cutoff [...] for diagnosis of diabetes. Reference: Standards of [facility] Care in Diabetes 2016, [place] [employer]. Diabetes Care. 2016.39(Suppl 1). Performed By: #### CBC, BMP ####[facility] [address] [place] [address] 0 Potassium molar conc 4.5 mmol/L Normal 3.7-5.1 [facility] Comment on above: Performed By: #### CBC, BMP ####[facility] [address] [place] [address] 0 Sodium molar conc 138 mmol/L Normal 136-[address] [facility] Comment on above: Performed By: #### CBC, BMP ####[facility] [address] [place] [address] 0 Urea nitrogen mass conc 21 mg/dL Normal 7-21 [facility] Comment on above: Performed By: #### CBC, BMP ####[facility] [address] [place] [address] 0 CBC on 04-20-2018 Erythrocyte distribution width Ratio (RBC) 13.1 % Normal 11.5-15.0 [facility] Comment on above: Performed By: #### CBC, BMP ####[facility] [address] [place] [address] 0 Hematocrit Volume Fraction (Bld) 32.9 % Low 36.0-46. 0 [facility] Comment on above: Performed By: #### CBC, BMP ####[facility] [address] [place] [address] 0 Hemoglobin mass conc (Bld) 10.7 g/dL Low 11.5-15.5 [facility] Comment on above: Performed By: #### CBC, BMP ####[place] [address] 0 MCH Entitic mass (RBC) 32.4 pG Normal 26.0-34.0 [facility] Comment on above: Performed By: #### CBC, BMP ####[place] [address] 0 MCHC mass conc (RBC) 32.5 g/dL Normal 30.5-36.0 [facility] Comment on above: Performed By: #### CBC, BMP ####[place] [address] 0 MCV Entitic volume (RBC) 99.7 fL Normal 80.0-100.0 [facility] Comment on above: Performed By: #### CBC, BMP ####[place] [address] 0 Platelet mean volume Entitic volume (Bld) 11.1 fL Normal 9.0-12.7 [facility] Comment on above: Performed By: #### CBC, BMP ####[facility] [address] [place] [address] 0 Platelets #/vol (Bld) 134 10*3/uL Low 150-400 [facility] Comment on above: Performed By: #### CBC, BMP ####[facility] [address] [place] [address] 0 RBC #/vol (Bld) 3.30 10*6/uL Low 3.90-5.20 [facility] devorah Comment on above: Performed By: #### CBC, BMP ####[facility] [address] [place] [phone] 0 WBC #/vol (Bld) 6.89 10*3/uL Normal 3.70-11.00 [facility] Comment on above: Performed By: #### CBC, BMP ####[facility] [address] [place] [phone] PROGRESS on 04-20-2018 Protein mass conc HNO ID: [id number] Normal [facility] Author: Mary Diaz Service: Hospital Medicine Author Type: Physician Type: Progress Notes Filed: 04/20/2018 4:31 PM Note Text: SERVICE DATE: 04/20/2018 SERVICE TIME: 4:30 PM HOSPITAL MEDICINE PROGRESS NOTE NIGHT AND WEEKEND COVERAGE: Nights: Please [place] [phone]. SUBJECTIVE Interval Events: Symptoms have improved. Still [...] with long-term curr ent use of insulin ([facility]) 02/11/1995 - Present Current Assessment AND Plan Assessment: Last A1c 9.1 in 01/[address] 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 Follow with [...] DAILY 04/18/181930 -- 04/18/181944 pneumatic compression stockings ([place]) 04/18/181944 activity - mobilize patient ([place]) VTE Prophylaxis: VTE prophylaxis appropriate Plan of care discussed with: Patient SIGNATURE: Mary Diaz MD PATIENT NAME: Monique arellano DATE: April 20, 2018 TIME: 4:30 PM PAGER/CONTACT #: [phone] Basic Metabolic Panl on 04-19-2018 Anion gap molar conc 15 mmol/L Normal - [facility] Comment on above: Performed By: #### CBC, BMP ####[facility] [address] [place] [address] 0 Calcium mass conc 9.1 mg/dL Normal 8.5-10.2 [facility] Comment on above: Performed By: #### CBC, BMP ####[facility] [address] [place] [address] 0 Chloride molar conc 100 mmol/L Normal 97-105 [facility] Comment on above: Performed By: #### CBC, BMP ####[facility] [address] [place] [address] 0 CO2 molar conc 28 mmol/L Normal 22-30 [facility] Comment on above: Performed By: #### CBC, BMP ####[facility] [address] [place] [address] 0 Creatinine mass conc 1.33 mg/dL High 0.58-0.96 [facility] Comment on above: Performed By: #### CBC, BMP ####[facility] [address] [place] [address] 0 eGFR- Amer. 49 Normal [facility] Comment on above: Performed By: #### CBC, BMP ####[facility] [address] [place] [address] 0 GFR/1.73 sq M predicted among non-blacks MDRD vol 40 . Norm al [facility] rate/area (S/P/Bld) Comment on above: Result Comment: [...] actual GFR. Performed By: #### CBC, BMP ####[facility] [address] [place] [address] 0 Glucose mass conc 234 mg/dL High 74-99 [facility] Comment on above: Result Comment: The [place] [employer] (ADA) provides guidance for cutoff [...] for diagnosis of diabetes. Reference: Standards of [facility] Care in Diabetes 2016, [place] [employer]. Diabetes Care. 2016.39(Suppl 1). Performed By: #### CBC, BMP ####[facility] [address] [place] [address] 0 Potassium molar conc 4.6 mmol/L Normal 3.7-5.1 [facility] Comment on above: Performed By: #### CBC, BMP ####[facility] [address] [place] [address] 0 Sodium molar conc 143 mmol/L Normal 136-[address] [facility] Comment on above: Performed By: #### CBC, BMP ####[facility] [address] [place] [address] 0 Urea nitrogen mass conc 20 mg/dL Normal 7-21 [facility] Comment on above: Performed By: #### CBC, BMP ####[facility] [address] [place] [address] 0 CASE MANAGEM on 04-19-2018 CASE MANAGEM HNO ID: [id number] Normal [facility] Author: Ariana (Kyle) KYLE Muñoz Service: Case [...] 19, 2018 TIME: 12:34 PM PAGER/CONTACT #: [phone] CBC on 04-19-2018 Erythrocyte distribution width Ratio (RBC) 13.3 % Normal 11.5-15.0 [facility] Comment on above: Performed By: #### CBC, BMP ####[facility] [address] [place] [address] 0 Hematocrit Volume Fraction (Bld) 36.0 % Normal 36.0-46. 0 [facility] Comment on above: Performed By: #### CBC, BMP ####[facility] [address] [place] [address] 0 Hemoglobin mass conc (Bld) 11.5 g/dL Normal 11.5-15.5 [facility] Comment on above: Performed By: #### CBC, BMP ####[place] [address] 0 MCH Entitic mass (RBC) 31.9 pG Normal 26.0-34.0 [facility] Comment on above: Performed By: #### CBC, BMP ####[place] [address] 0 MCHC mass conc (RBC) 31.9 g/dL Normal 30.5-36.0 [facility] Comment on above: Performed By: #### CBC, BMP ####[place] [address] 0 MCV Entitic volume (RBC) 99.7 fL Normal 80.0-100.0 [facility] Comment on above: Performed By: #### CBC, BMP ####[facility] [address] [place] [address] 0 Platelet mean volume Entitic volume (Bld) 11.2 fL Normal 9.0-12.7 [facility] Comment on above: Performed By: #### CBC, BMP ####[facility] [address] [place] [address] 0 Platelets #/vol (Bld) 149 10*3/uL Low 150-400 [facility] Comment on above: Performed By: #### CBC, BMP ####[facility] [address] [place] [address] 0 RBC #/vol (Bld) 3.61 10*6/uL Low 3.90-5.20 [facility] Comment on above: Performed By: #### CBC, BMP ####[facility] [address] [place] [address] 0 WBC #/vol (Bld) 9.98 10*3/uL Normal 3.70-11.00 [facility] Comment on above: Performed By: #### CBC, BMP ####[facility] [address] [place] [address] 0 NURSING PROG on 04-19-2018 Protein HNO ID: [id number] Normal [facility] Author: Magnus (Rn) KYLE Merritt [facility] conc Service: (none) Author Type: Registered Nurse Type: Nursing Progress Note Filed: 04/20/2018 4:15 AM Note Text: Nursing Progress Note Patient Name: Monique Lincoln Patient Location: [place] [address] [address] Daily Note: 2043: Patient states she feels [...] by: Magnus Merritt, RN Protein HNO ID: [id number] Normal [facility] Author: Summer (Rn) Pearl, KYLE Hospital conc Service: (none) Author Type: Registered Nurse Type: Nursing Progress Note Filed: 04/19/2018 6:39 PM Note Text: Nursing Progress Note Patient Name: Monique Lincoln Patient [place] [id number] Daily Note: 1651- Pt given insulin as ordered. aide notified RN of BS of 50. Pt eating and given juice. Notified Yvonne CONTRACT LAW SPECIALIST. Pt asymptomatic. Wi ll re check sugar in 15 minutes. 170- Sugar re checked , reading 68. Given one more ju ice and re notified Yvonne CONTRACT LAW SPECIALIST. Will re check BS one more time [...] on 04-19-2018 Protein mass conc HNO ID: [id number] [facility] Author: Yvonne Branham) Henrique Service: Hospital Medicine Author Type: Physician Back Shoe Worker Type: Progress Notes Filed: 04/19/2018 8:09 PM Note Text: SERVICE DATE: 04/19/2018 SERVICE TIME: 3:08 PM HOSPITAL MEDICINE PROGRESS NOTE NIGHT AND WEEKEND COVERAGE: Nights: Please [place] [phone]. HPI This is a 63 year old [...] her sugar at home [facility]. She reports a few [...] with long-term curr ent use of insulin ([facility]) 02/11/1995 - Present Current Assessment AND Plan Assessment: Last A1c 9.1 in 01/[address] crow outpatient Patient has been taking her insulin over the past week and this morning despite decreased appetite, nausea, and vomiting BG found to be in the 30s-40s on arrival, given D5 and started on dextrose drip which was stopped when she got to the [facility] as her blood sugars were in [...] Assessment AND Plan Assessment: Recent ECHO 02/27/2017 (post-NE) with worsening RVSP, 64 mmHg. Follow with [...] PLAN: Continue high dose statin Morbid obesity ([facility]) 03/16/2014 - Present Current Assessment AND Plan Assessment: BMI 42 PLAN: Patient counseled on diet and exercise COPD with asthma ([facility]) 02/23/2017 - Present Current Assessment AND Plan [...] DAILY 04/18/181930 -- 04/18/181944 pneumatic compression stockings ([place]) 04/18/181944 activity - mobilize patient ([place]) VTE Prophylaxis: VTE prophylaxis appropriate Plan of care discussed with: Attending, Patient and RN SIGNATURE: Yvonne Duenas PA-C PATIENT NAME: Monique Wharton rd DATE: April 19, 2018 TIME: 3:08 PM PAGER/CONTACT #: [phone] [facility] on 04-18-2018 [facility] HNO ID: [id number] Normal [facility] Author: Holli (Ct) KRISS Gipson Service: (none) Author Type: Clinical Developmental Education Instructor Type: Allied Health Filed: 04/18/2018 5:00 PM [...] PERIPHERAL IV DATA: Inpatient - refer to [facility] RADIOLOGY DEPARTMENT: CT; Exam(s) Completed: Abdomen/P peyman SIGNATURE: KRISS Snyder PATIENT NAME: Monique mathew DATE: April 18, 2018 TIME: 4:59 PM CASE MGT INIT ASSES on 04-18-2018 CASE MGT INIT ZEN HNO ID: [id number] [facility] Author: Penny (Rn) KYLE Pate Service: (none) Author Type: Registered Nurse Type: Care Mgt Initial Assessment Filed: 04/18/2018 7:27 PM Note Text: CARE MANAGEMENT: ASSESSMENT AND DISCHARGE PLAN SERVICE DATE: 04/18/2018 SERVICE TIME: 7:00 PM atomic spectroscopist met with patient at bedside in the [facility] bed-9. Introduction made and role of case management china cornell Patient states he is agreeable to assessment questions . Assessment information provided by electronic medical record and patient. PRIMARY CARE PHYSICIAN: Augie Romero MD - confirmed Patient states she prefers appointments between 10 am -11 am on . ADMISSION STATUS: Emergency Needs Prior to Discharge: To Be Determined MEDICAL: Patient/Implementation Consultant Stated Goals: To have reduction in symptoms To return home to life as it was Health Insurance: [employer] MEDICARE PPO NONE Health Issues Impacting Discharge Plan: Diverticulitis Nausea Vomiting Diarrhea Last Admission Date: Previous admit date: 02/23/2017 Is this Within the Past 30 days? No Advance Directive: Current Advance Directive: Health Care Power of Attorn ey;Living Will In Chart: No Drawer In Attempted to Assist with AD Completion: Y es Action: Education Provided Per Patient HCPOA Agent: Anders Lincoln - Spouse [phone] Health Literacy: 1. How often do you [...] distances. Has the Patient Been in a Correction Facility in the Past 30 days? No SOCIAL: Living Arrangement: Home Split Level Home Lives With: Spouse Financial Resources: Disabled Primary Contact: Anders Lincoln R [address] [place] [address] [facility] Relation: Spouse Supportive: Yes - Patient confirms [...] 0 I feel financially burdened by my sth-ju-fjuixy expens es for my prescription medication: Disagree completely - 0 Patient is categorized as low risk < 2 Patient states she manages her own medications. Spouse assists by picking up her prescriptions. Are you interested in bedside delivery of your medicat ions? No Pharmacy Preference: [facility] Food Concerns: In the Last Month, Have [...] Needs: None FREEDOM OF CHOICE EXPLAINED: Yes [place] of Choice explained to patient POTENTIAL TRANSITION PLANS Discharge Needs: To Be Determined Patient denies any discharge needs or concerns at this time. Anticipating Home/Self Care Discharge Transportation: Family to Transport - Spouse Patient informed Care Management is available to aid i n discharge planning needs. Primary Care Physician: Augie Romero MD - [facility] ry of Care to be sent at discharge. SIGNATURE: Penny Pate RN PATIENT NAME: Monique Reyes sford DATE: April 18, 2018 TIME: 7:00 PM PAGER/CONTACT #: [phone] CBC and Differential on 04-18-2018 Abs Baso 0.06 k/uL Normal <0.11 [facility] Comment on above: Performed By: #### CBCDIF, C K, CMP, LIPA, MG1 #### [facility] Laboratory [address] [place] [address] Abs [place] 1.02 k/uL High <0.87 [facility] Comment on above: Performed By: #### CBCDIF, C K, CMP, LIPA, MG1 #### [facility] Laboratory [address] [place], [place] [id number] Abs Neut 9.16 k/uL High 1.45-7.50 [facility] Comment on above: Performed By: #### CBCDIF, C K, CMP, LIPA, MG1 #### [facility] Laboratory [address] [place], [place] [id number] Basophils/100 WBC (Bld) 0.5 % Normal [facility] Comment on above: Performed By: #### CBCDIF, C K, CMP, LIPA, MG1 #### [facility] Laboratory [address] [place], [place] [phone] Eosinophils #/vol (Bld) 0.13 10*3/uL Normal <0.46 [facility] Comment on above: Performed By: #### CBCDIF, C K, CMP, LIPA, MG1 #### [facility] [address] Eosinophils/100 WBC (Bld) 1.1 % Normal [facility] Comment on above: Performed By: #### CBCDIF, C K, CMP, LIPA, MG1 #### [facility] Laboratory [address] [place] [address] Erythrocyte distribution width Ratio (RBC) 13.1 % Normal 11.5-15.0 [facility] Comment on above: Performed By: #### CBCDIF, C K, CMP, LIPA, MG1 #### [facility] [address] [place] [address] Hematocrit Volume Fraction (Bld) 38.1 % Normal 36.0-46. 0 [facility] Comment on above: Performed By: #### CBCDIF, C K, CMP, LIPA, MG1 #### [facility] [address] [place] [address] Hemoglobin mass conc (Bld) 12.4 g/dL Normal 11.5-15.5 [facility] Comment on above: Performed By: #### CBCDIF, C K, CMP, LIPA, MG1 #### [facility] [address] [place] [address] Lymphocytes #/vol (Bld) 1.60 10*3/uL Normal 1.00-4.00 [facility] Comment on above: Performed By: #### CBCDIF, C K, CMP, LIPA, MG1 #### [facility] [address] [place], [place] [id number] Lymphocytes/100 WBC (Bld) 13.4 % Normal [facility] Comment on above: Performed By: #### CBCDIF, C K, CMP, LIPA, MG1 #### [facility] [address] [place] [address] MCH Entitic mass (RBC) 31.6 pG Normal 26.0-34.0 [facility] Comment on above: Performed By: #### CBCDIF, C K, CMP, LIPA, MG1 #### [facility] Laboratory [address] [place] [phone] MCHC mass conc (RBC) 32.5 g/dL Normal 30.5-36.0 [facility] Comment on above: Performed By: #### CBCDIF, C K, CMP, LIPA, MG1 #### [facility] [address] [place] [phone] MCV Entitic volume (RBC) 97.2 fL Normal 80.0-100.0 [facility] Comment on above: Performed By: #### CBCDIF, C K, CMP, LIPA, MG1 #### [facility] [address] [place] [address] Monocytes/100 WBC (Bld) 8.5 % Normal [facility] Comment on above: Performed By: #### CBCDIF, C K, CMP, LIPA, MG1 #### [facility] [address] [place] [address] Neutrophils/100 WBC (Bld) 76.5 % Normal [facility] Comment on above: Performed By: #### CBCDIF, C K, CMP, LIPA, MG1 #### [facility] [address] [place] [address] Platelet mean volume Entitic volume (Bld) 11.0 fL Normal 9.0-12.7 [facility] Comment on above: Performed By: #### CBCDIF, C K, CMP, LIPA, MG1 #### [facility] [address] [place] [address] Platelets #/vol (Bld) 181 10*3/uL Normal 150-400 [facility] Comment on above: Performed By: #### CBCDIF, C K, CMP, LIPA, MG1 #### [facility] [address] RBC #/vol (Bld) 3.92 10*6/uL Normal 3.90-5.20 [facility] Comment on above: Performed By: #### CBCDIF, C K, CMP, LIPA, MG1 #### [facility] [address] WBC #/vol (Bld) 11.97 10*3/uL High 3.70-11.00 [facility] Comment on above: Performed By: #### CBCDIF, C K, CMP, LIPA, MG1 #### [facility] [address] [facility] [phone] CK on 04-18-2018 CK enzyme act/vol 40 U/L Low 42-196 [facility] Comment on above: Performed By: #### CBCDIF, C K, CMP, LIPA, MG1 #### [facility] [address] [facility] [phone] CT ABD/PEL W IVCON on 04-18-2018 CT ABD/PEL W IVCON * * *Final Report* * * Normal [facility] DATE OF EXAM: Apr 18 2018 5:03PM [facility] - CT ABD/PEL W IVCON / [...] Ronni austin on 04/18/2018 at 5:30 PM. Material Mixer: CONOR Transcribe Date/Time: Apr 18 2018 5:12P Dictated by : SARITHA TIJERINA MD This examination was interpreted and the report review ed and electronically signed by: SARITHA TIJERINA MD on Apr 18 2018 5:39PM EST [id number] Comp Metabolic Panel on 04-18-2018 Albumin mass conc 3.9 g/dL Normal 3.9-4.9 [facility] pital Comment on above: Performed By: #### CBCDIF, C K, CMP, LIPA, MG1 #### [facility] Laboratory [address] [place] [address] ALP enzyme act/vol 98 U/L Normal 34-123 [facility] spital Comment on above: Performed By: #### CBCDIF, C K, CMP, LIPA, MG1 #### [facility] [address] [place] [address] ALT enzyme act/vol 28 U/L Normal 7-38 [facility] Comment on above: Performed By: #### CBCDIF, C K, CMP, LIPA, MG1 #### [facility] [address] [place] [phone] Anion gap molar conc 10 mmol/L Normal 9-18 [facility] Comment on above: Performed By: #### CBCDIF, C K, CMP, LIPA, MG1 #### [facility] [address] [place] [phone] AST enzyme act/vol 34 U/L Normal 13-35 [facility] Comment on above: Performed By: #### CBCDIF, C K, CMP, LIPA, MG1 #### [facility] [address] [facility] [phone] Bilirubin mass conc 0.5 mg/dL Normal 0.2-1.3 [facility] Comment on above: Performed By: #### CBCDIF, C K, CMP, LIPA, MG1 #### [facility] [address] [place] [phone] Calcium mass conc 10.0 mg/dL Normal 8.5-10.2 [facility] pital Comment on above: Performed By: #### CBCDIF, C K, CMP, LIPA, MG1 #### [facility] [address] [place] [phone] Chloride molar conc 99 mmol/L Normal 97-105 [facility] ospital Comment on above: Performed By: #### CBCDIF, C K, CMP, LIPA, MG1 #### [facility] [address] [place] [phone] CO2 molar conc 33 mmol/L High 22-30 [facility] Comment on above: Performed By: #### CBCDIF, C K, CMP, LIPA, MG1 #### [facility] [address] [place] [phone] Creatinine mass conc 1.03 mg/dL High 0.58-0.96 [facility] Comment on above: Performed By: #### CBCDIF, C K, CMP, LIPA, MG1 #### [facility] [address] [place] [phone] eGFR- Amer. >60 Normal [facility] Comment on above: Performed By: #### CBCDIF, C K, CMP, LIPA, MG1 #### [facility] [address] [facility] [phone] GFR/1.73 sq M predicted among non-blacks MDRD vol 54 . Norm al [facility] rate/area (S/P/Bld) Comment on above: Result Comment: [...] CBCDIF, C K, CMP, LIPA, MG1 #### [facility] [address] [facility] [phone] Glucose mass conc 46 mg/dL Low 74-[address] [facility] Comment on above: Result Comment: The [place] [employer] (ADA) provides guidance for cutoff [...] for diagnosis of diabetes. Reference: Standards of [facility] Care in Diabetes 2016, [place] [employer]. Diabetes Care. 2016.39(Suppl 1). No call per procedure. 04/18/18 1442 ARoberts Performed By: #### CBCDIF, C K, CMP, LIPA, MG1 #### [facility] [address] [facility] [phone] Potassium molar conc 3.5 mmol/L Low 3.7-5.1 [facility] Comment on above: Performed By: #### CBCDIF, C K, CMP, LIPA, MG1 #### [facility] [address] [facility] [phone] Protein mass conc 7.1 g/dL Normal 6.3-8.[address] [facility] Comment on above: Performed By: #### CBCDIF, C K, CMP, LIPA, MG1 #### [facility] [address] [facility] [phone] Sodium molar conc 142 mmol/L Normal 136-[address] [facility] Comment on above: Performed By: #### CBCDIF, C K, CMP, LIPA, MG1 #### [facility] [address] [facility] [phone] Urea nitrogen mass conc 17 mg/dL Normal 7- [facility] Comment on above: Performed By: #### CBCDIF, C K, CMP, LIPA, MG1 #### [facility] [address] [facility] [phone] ECG COMPLETE on 04-18-2018 ECG COMPLETE NAME : MONIQUE LINCOLN [facility] PID : [id number] : 1955 Gender : Female Race : ORD : [id number] Procedure Date : Apr 18 2018 13:33:36 Edit Date : Apr 19 2018 09:45:20 Diagnosis:NORMAL SINUS RHYTHM NORMAL ECG WHEN COMPARED WITH ECG OF 23-FEB-2017 15:06, NO SIGNIFICANT CHANGE WAS FOUND agree Confirmed by MD LIZETTE, SANTOSH GERONIMO ([id number]), health editor ROSINA SCHRADER ([id number]) on 04/19/2018 9:45:12 AM Ventricular Rate : 78 BPM Atrial Rate : 78 BPM P-R Interval : 152 ms QRS Duration : 88 ms Q-T Interval : 394 ms QTC Calculation(Bezet) : 449 ms P [place] : 80 degrees R [place] : 17 degrees T [place] : 27 degrees Test Reason : Chest Pain Location : 1 : ER 9 Overread By : MD LIZETTELONOKE Edited By : ROSINA SCHRADER Referred By : LIZETTE Acquired by : IFEOMA BARNETT NOTE on 04-18-2018 ED NOTE HNO ID: [id number] [facility] Author: Noah (Rn) KYLE Barnett Service: (none) [...] and D50 given. ED NOTE HNO ID: [id number] [facility] Author: Noah (Rn) KYLE Barnett Service: (none) Author Type: Registered Nurse Type: ED Notes Filed: 04/18/2018 1:40 PM Note Text: ED NOTE HNO ID: [id number] [facility] Author: Massiel (Rn) KYLE Holm Service: (none) Author Type: Registered Nurse Type: ED Notes Filed: 04/18/2018 11:24 AM Note Text: Patient presents to the ED with N/V and abd pain for a bout a week. ED PROV NOTE on 04-18-2018 Protein mass conc HNO ID: [id number] [facility] Author: Ronni Mcguire DO Service: Emergency Medicine [...] Mother sepsis - Asthma Daughter ICU adm, [facility] ventilation. Social History Social History Main [...] signs reviewed Triage note reviewed Placed on campus monitor Parenteral analgesia administered Medications administered morphine and [...] HISTORY PHYSICAL on 04-18-2018 HISTORY HNO ID: [id number] [facility] Author: Yvonne Branham) Henrique fairchild Service: Hospital Medicine Author Type: Physician Back Shoe Worker Type: HANDP Filed: 04/18/2018 7:53 PM Note Text: Attestation signed by Chepe Ballesteros at 04/18/2018 8:57 PM [facility] STAFF PHYSICIAN NOTE OF PERSONAL INVOLVEMENT IN C ARE I have reviewed the documentation obtained and documen ravi by the team healthcare provider (medical student, fellow, re sident, nurse practitioner or physician transportation assistant) and I personally participated in the wise components. I have discussed the case and management of the patient' s care. Acute uncomplicated diverticulitis with hypoglycemia d ue to taking regular insulin dose while having nausea/vomiting. Will observ e overnight. IV antibiotics for now and liquid diet. Chepe Ballesteros MD Hospital Medicine Staff PAGER: [phone] DATE of Service: 04/18/2018 TIME of Service: 8:56 PM SERVICE DATE: 04/18/2018 SERVICE TIME: 7:48 PM HOSPITAL MEDICINE HISTORY AND PHYSICAL PCP: Augie Romero MD NIGHT AND WEEKEND COVERAGE: Nights: [place] [phone]. SUBJECTIVE Chief Complaint: Abdominal pain HPI: This [...] her sugar [facility] She reports a few [...] Mother sepsis - Asthma Daughter ICU adm, [facility] ventilation. Social History Substance Use Topics [...] with long-term curr ent use of insulin ([facility]) 02/11/1995 - Present Current Assessment AND Plan [...] Assessment AND Plan Assessment: Recent ECHO 02/27/2017 (post-NE) with worsening RVSP, 64 mmHg. Follow with [...] DAILY 04/18/181930 -- 04/18/181944 pneumatic compression stockings ([place]) 04/18/181944 activity - mobilize patient ([place]) VTE Prophylaxis: VTE prophylaxis appropriate SIGNATURE: Yvonne Duenas PA-C PATIENT NAME: Monique Wharton DATE: April 18, 2018 TIME: 7:48 PM PAGER/CONTACT #: [phone] Lipase on 04-18-2018 Lipase enzyme act/vol 20 U/L Normal 16-61 [facility] Comment on above: Performed By: #### Jeremiah CHAN K, CMP, LIPA, MG1 #### [facility] [address] [facility] [phone] Magnesium on 04-18-2018 Magnesium mass conc 1.8 mg/dL Normal 1.7-2.3 [facility] Comment on above: Performed By: #### ROCIO C K, CMP, LIPA, MG1 #### [facility] [address] [address] Rapid PCR Assay FLU on 04-18-2018 Influenza A PCR Negative Normal [facility] Comment on above: Performed By: #### FLUPCR ## ## [facility] [address] [address] Influenza B PCR Negative Normal [facility] Comment on above: Performed By: #### FLUPCR ## ## [facility] [address] [place] [address] Specimen source Nom (Unsp spec) Nasopharyngeal Swab Normal [facility] Comment on above: Performed By: #### FLUPCR ## ## [facility] [address] [place] [address] Troponin T on 04-18-2018 Troponin T.cardiac mass conc ug/L Normal 0.000-0.029 [facility] Comment on above: Performed By: #### ELVIRA #### [facility] [address] [place] [address] Urinalysis on 04-18-2018 Bilirubin, Urine Negative Normal Negative [facility] Comment on above: Performed By: #### UA ####[facility] [address] [place] [address] 0 Clarity Nom (U) Clear Normal Clear [facility] Comment on above: Performed By: #### UA ####[facility] [address] [place] [address] 0 Color Nom (U) Yellow Normal Yellow [facility] Comment on above: Performed By: #### UA ####[facility] [address] [place] [address] 0 Glucose Ql (U) Negative Normal Negative [facility] Comment on above: Performed By: #### UA ####[facility] [address] [place] [address] 0 Hemoglobin/Blood,Ur Negative Normal Negative [facility] Comment on above: Performed By: #### UA ####[facility] [address] [place] [address] 0 Ketones Ql (U) Negative Normal Negative [facility] Comment on above: Performed By: #### UA ####[facility] [address] [place] [address] 0 Leukest Negative Normal Negative [facility] Comment on above: Performed By: #### UA ####[facility] [address] [place] [address] 0 Nitrite Ql (U) Negative Normal Negative [facility] Comment on above: Performed By: #### UA ####[address] [place] [address] 0 pH (Bld) 6.0 Normal 5.0-8.0 [facility] Comment on above: Performed By: #### UA ####[address] [address] 0 Protein mass conc (U) Negative Normal Negative [facility] Comment on above: Performed By: #### UA ####[address] [address] 0 Specific Martin, Ur 1.015 Normal 1.001-1.029 [facility] Comment on above: Performed By: #### UA ####[address] [place] [address] 0 Urobilinogen Qn (U) 0.2 Normal 0.2-1.0 [facility] Comment on above: Performed By: #### UA ####[address] [place] [address] 0 XR CHEST 2V FRONTAL/LAT on 04-18-2018 XR CHEST 2V FRONTAL/LAT * * *Final Report* * * Normal [facility] DATE OF EXAM: Apr 18 2018 1:32PM [...] developing abnormality or acute process. Cardiomega ly. Material Mixer: CONOR Transcribe Date/Time: Apr 18 2018 1:36P Dictated by : JUAN ORNELAS MD This examination was interpreted and the report review ed and electronically signed by: JUAN ORNELAS MD on Apr 18 2018 1:37PM EST [id number] Encounters Encounter Date Encounter Type Care Provider Facility Start: 05-31-2020 Patient encounter Augie Romero MD [facility] procedure Work Phone: [phone] Start: 04-30-2020 Patient encounter Augie Romero MD [facility] procedure Work Phone: [phone] Start: 01-30-2020 Patient encounter Augie Romero MD [facility] procedure Work Phone: [phone] Start: 09-26-2019 Patient encounter Augie Romero MD [facility] procedure Work Phone: Start: 06-20-2019 Patient encounter [...] Phone: Start: 04-18-2018 Evaluation and CHEPE BALLESTEROS [facility] End: 04-21-2018 management of inpatient Start: 02-13-2018 Patient encounter Augie Romreo [facility] procedure Work Phone: Start: 01-08-2018 Patient encounter Augie Jensenlianna [facility] procedure Work Phone: Start: 09-27-2017 Patient encounter Augie Romero [facility] procedure Work Phone: Start: 07-06-2017 Patient encounter Augie Jensenlianna [facility] procedure Work Phone: Start: 06-27-2017 Patient encounter Augie Romero [facility] procedure Work Phone: Procedures Date [...] injectable Work Phone: 11-02-2016 influenza, seasonal, Augie Romero [facility] injectable; Translations: Wo rk Phone: [Influenza] 12-15-2015 pneumococcal conjugate [facility], 13 valent; Work Brit [...] Dates Details Instructions not documented -[facility] Work Phone: Summary Purpose Family History No [...] Records Found Hospital Course Note HNO ID: [id number] Author: Mary penaloza Service: Hospital Medicine Author [...] DATE CREATED AUTHOR AUTHOR'S ORGANIZ ATION 04/22/2018 [facility] DATE CREATED AUTHOR AUTHOR'S ORGANIZATIO N 06/20/2019 [facility] DATE CREATED AUTHOR AUTHOR'S ORGANIZATIO N 07/08/2020 [facility] DATE CREATED AUTHOR AUTHOR'S ORGANIZATIO N 02/02/2021 [facility] FOR RECORDS PERTAINING TO PATIENTS WHO ARE [...] BE BASED ON THE PRIMARY CLINICAL RECORDS. [employer] provides no warranty or guarantee of the accuracy or completeness of information in this document.
[2021-11-03 08:44] LABS: Anion Gap 9 (5-15); BUN 48 mg/dL (7-18); BUN/Creat Ratio 35.6 RATIO (10-20); Calcium,Total 9.5 mg/dL (8.5-10.1); Chloride 101 mmol/L (98-107); Creatinine, Serum 1.35 mg/dL (0.55-1.02); EST Glomerular Filtration Rate 42 mL/min (>60); Est Glom Filt Rate - Afr Amer 51 mL/min (>60); Estimated Creatinine Clearance 37.38 ml/min; Glucose 309 mg/dL (74-106); Potassium 4.2 mmol/L (3.5-5.1); Sodium Level 142 mmol/L (136-145); Troponin-I HS 18 pg/mL (3.0-54.0)
[2021-11-03] MEDS: Furosemide 40 MG/4 ML Vial IV ×3 (08:57→22:20)
--- NOTE | 2021-11-03 10:18 | ED.RN ---
dr solis in ed to see pt
--- NOTE | 2021-11-03 11:07 | PCM.RX.CS ---
Consult Type of Consult: New start Suspected Infection: Pneumonia Labs: Sodium 142 mmol/L (136-145) 11/03/21 08:15 Potassium 4.2 mmol/L (3.5-5.1) 11/03/21 08:15 Chloride 101 mmol/L (98-107) 11/03/21 08:15 Carbon Dioxide 32.0 mmol/L (21.0-32.0) 11/03/21 08:15 Anion Gap 9 (5-15) 11/03/21 08:15 BUN 48 mg/dL (7-18) H 11/03/21 08:15 Creatinine 1.35 mg/dL (0.55-1.02) H 11/03/21 08:15 Est GFR (MDRD) Af Amer 51 mL/min (>60) L 11/03/21 08:15 Est GFR (MDRD) Non-Af 42 mL/min (>60) L 11/03/21 08:15 BUN/Creatinine Ratio 35.6 RATIO (10-20) H 11/03/21 08:15 Glucose 309 mg/dL (74-106) H 11/03/21 08:15 Microbiology: Microbiology 11/03/21 08:45 Nasal Secretion SARS-CoV-2 Antigen (Rapid) - Final Goal Trough: 15-20 mcg/mL Pharmacy Plan for Drug Dosing: NEW START IV VANCOMYCIN Consulting Physician: Dr. Roberts Indication: Pneumonia Goal Trough: 15-20 SrCr: 1.35 mg/dL CrCl: 37.38 ml/min Comments: 1750mg x1 dose given in ER 11/03/21 @ 1101 Vancomcyin Dose: 1000mg Q24H to start at 1000 11/04/21 Pending Level: Vancomycin trough @ 92911/06/21 Pharmacy Service will continue to monitor and adjust dosing as required. Labs to be done on [date and time ordered]: Vancomycin trough @ 92911/06/21
[2021-11-03 11:23] LABS: Troponin-I HS 20 pg/mL (3.0-54.0)
--- NOTE | 2021-11-03 11:47 | PCM.HP.STD ---
Documented by User: Laura Suarez NP, [employer] 11/03/21 12:37 HPI - General General Date of Admission: 11/03/21 Date of Service: 11/03/21 Chief Complaint: Shortness of breath, hypoxia. HPI Narrative SONA WILSON, is a 66 F who presents to the Emergency Room due to shortness of breath. 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 Patient has been short of breath for the past couple days. Overnight required 8 L nasal cannula which was increased from previous 3 L requirement. Requiring BiPAP on admission. Patient denies fever, chills. Reports nonproductive cough. Reports general weakness and malaise. Denies other associated symptoms or complaints. Patient has a past medical history of chronic hypoxic respiratory failure, chronic COPD, chronic heart failure with preserved ejection fraction, chronic anemia, atrial fibrillation, type 2 diabetes mellitus, hypothyroidism, CAD, hyperlipidemia, depression, anxiety, chronic kidney disease stage IIIb. [facility] Medical History Acute cervical myofascial strain Acute on chronic respiratory failure with hypoxemia Amputated toe of left foot Anemia Asthma Atherosclerotic heart disease of [place] coronary artery without angina pectoris Atrial fibrillation CAD (coronary artery disease) Chronic heart failure with preserved ejection fraction (HFpEF) Chronic heel ulcer Chronic respiratory failure with hypoxia, on home oxygen therapy Chronic ulcer of great toe of left foot Closed head injury Congestive heart failure (CHF) COPD (chronic obstructive pulmonary disease) Decubitus ulcer of dorsum of foot, stage 2 Decubitus ulcer of left heel, stage 2 Decubitus ulcer of left heel, stage 3 Decubitus ulcer, heel, left, unstageable Depression Diabetes mellitus with diabetic polyneuropathy Diabetes type 2, controlled Diabetic foot ulcers Diverticulitis Essential hypertension Former smoker History of amputation of left great toe History of non-ST elevation myocardial infarction (NSTEMI) (02/24/17) Hyperlipidemia Hypothyroid Myocardial infarct Non-rheumatic tricuspid valve insufficiency Nondisplaced fracture of distal phalanx of right great toe, initial encounter for closed fracture Nonrheumatic mitral (valve) insufficiency Obesity Obstructive sleep apnea On home O2 Renal insufficiency Secondary pulmonary arterial hypertension Type 2 diabetes mellitus Home Medications bupropion HCl 300 mg 24 hr tablet, extended release 150 mg PO QHS depression 09/02/20 [History Last Taken 10/13/21] fluticasone furoate 100 mcg-vilanterol 25 mcg/dose inhalation powder (Breo Ellipta) 1 inh inhalation BID breathing 09/02/20 [History Last Taken 10/14/21] fluticasone propionate 50 mcg/actuation nasal spray,suspension 1 spray intranasal DAILY PRN Allergies 09/02/20 [History Last Taken 09/02/20] furosemide 80 mg tablet 80 mg PO DAILY water pill 09/02/20 [History Last Taken 10/14/21] levothyroxine 88 mcg tablet 88 mcg PO DAILY thyroid 09/02/20 [History Last Taken 10/14/21] lorazepam 1 mg tablet 0.5 mg PO QHS anxiety 09/02/20 [History Last Taken 10/13/21] montelukast 10 mg tablet 10 mg PO DAILY allergies 09/02/20 [History Last Taken 10/14/21] trazodone 100 mg tablet 50 mg PO QHS sleep 09/02/20 [History Last Taken 10/13/21] aspirin 81 mg tablet,delayed release (Adult Aspirin Regimen) 81 mg PO DAILY heart 05/17/21 [History Last Taken 10/14/21 09:30] amlodipine 10 mg tablet 10 mg PO DAILY bp 08/25/21 [History Last Taken 10/14/21 09:30] gabapentin 100 mg capsule (Neurontin) 100 mg PO TID nerve pain 08/25/21 [History Last Taken 10/14/21] insulin detemir U-100 100 unit/mL (3 mL) subcutaneous pen 30 unit subcut QHS blood sugar 09/02/21 [History Last Taken 10/13/21] insulin lispro 100 unit/mL subcutaneous pen 7 unit subcut ACHS blood sugar 09/02/21 [History Last Taken 10/14/21] ipratropium 0.5 mg-albuterol 3 mg (2.5 mg base)/3 mL nebulization soln 3 ml inhalation BID PRN sob 09/02/21 [History Last Taken Unknown] paroxetine HCl 30 mg tablet 40 mg PO QHS mental health 09/02/21 [History Last Taken 10/13/21] atorvastatin 80 mg tablet 80 mg PO QHS Cholestrol 10/22/21 [History Last Taken Unknown] carvedilol 6.25 mg tablet 6.25 mg PO BID BP 10/22/21 [History Last Taken Unknown] pantoprazole 40 mg tablet,delayed release 40 mg PO BID GERD 10/22/21 [History Last Taken Unknown] acetaminophen 500 mg tablet 1,000 mg PO Q8H PRN Pain 11/03/21 [History Last Taken Unknown] arginine 7 gram-glutamine 7 gram-calcium HMB 1.5 gram oral powder pack (Say) 1 ea PO BID 11/03/21 [History Last Taken Unknown] bisacodyl 10 mg rectal suppository 10 mg OK DAILY PRN Constipation 11/03/21 [History Last Taken Unknown] ceftriaxone 1 gram intravenous piggyback 1 g IV Q12H 11/03/21 [History Last Taken Unknown] collagenase clostridium histo. 250 unit/gram topical ointment (Santyl) 1 applic topical DAILY 11/03/21 [History Last Taken Unknown] doxycycline monohydrate 100 mg tablet 100 mg PO BID 11/03/21 [History Last Taken Unknown] menthol 0.44 %-zinc oxide 20.6 % topical ointment (Calmoseptine) 1 applic topical BID 11/03/21 [History Last Taken Unknown] methylprednisolone 4 mg tablet 0 mg PO UD steriod 11/03/21 [History Last Taken Unknown] nystatin 100,000 unit/gram topical powder 1 applic topical BID 11/03/21 [History Last Taken Unknown] oxycodone 5 mg tablet 5 mg PO Q4H PRN Pain 11/03/21 [History Last Taken Unknown] potassium chloride 20 mEq tablet,extended release 20 meq PO BID 11/03/21 [History Last Taken Unknown] sennosides 8.6 mg tablet (senna) 17.2 mg PO BID 11/03/21 [History Last Taken Unknown] Allergy/AdvReac Type Severity Reaction Status Date / Time Sulfa (Sulfonamide Allergy Anaphylaxis Verified 11/03/21 08:07 Antibiotics) sulfur dioxide Allergy Anaphylaxis Verified 11/03/21 08:07 Family History (Reviewed 11/03/21 @ 12:35 by Laura Suarez [employer]ER [employer], [employer]) Grandmother Diabetes Mother Heart disease Surgical History H/O right heart catheterization History of cataract surgery History of coronary artery stent placement (02/24/17) Tubal ligation status Social History (Reviewed 11/03/21 @ 12:35 by Laura Suarez [employer]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 Smoking Status: Former smoker how long ago did patient quit smokin alcohol intake: former year quit: 1999 substance use type: does not use caffeine: Yes Type: carbonated beverages and tea ROS Constitutional Constitutional: Reports chills, malaise and weakness; Denies change in weight, fatigue or fever(s) Cardiovascular Cardiovascular: Denies chest pain, edema, lightheadedness, palpitations or syncope Respiratory/Chest Respiratory/Chest: Reports cough and dyspnea; Denies productive cough or wheezing Gastrointestinal Gastrointestinal: Denies abdominal pain, constipation, diarrhea, nausea or vomiting Genitourinary Genitourinary: Denies burning urination, difficulty urinating, dysuria, hematuria, urinary frequency, urinary incontinence or urinary urgency Musculoskeletal Musculoskeletal: Denies back pain, joint pain or muscle weakness Integumentary Integumentary: Reports other Details: Recent left hallux amputation ; Denies erythema, lesions or rash Neurologic Neurologic: Denies abnormal speech, confusion, dizziness, focal weakness, numbness, paresthesias, seizure-like activity or syncope Psychiatric Psychiatric: Denies anxiety or depression Hematologic/Lymphatic Hematologic/Lymphatic: Denies anemia, easy bleeding or easy bruising Allergic/Immunologic Allergic/Immunologic: Denies hives or asthma Vital Signs Vital Signs Vital Signs: 11/03/21 08:03 11/03/21 08:08 11/03/21 08:10 Temperature 97.3 F L Temperature Source Oral Pulse Rate 100 Respiratory Rate 30 H Respiratory Effort Short of Breath Respiratory Depth Respiratory Pattern Tachypnea Blood Pressure 125/65 H Blood Pressure Mean 85 Blood Pressure Source Blood Pressure Position Blood Pressure Location Pulse Ox 98 99 Oxygen Delivery Method Nasal Cannula Bi-pap Bi-pap Oxygen Flow Rate (L/min) 8 Fraction of Inspired Oxygen (FIO2) 30 11/03/21 08:10 11/03/21 08:15 11/03/21 08:20 Temperature Temperature Source Pulse Rate 99 Respiratory Rate 28 H Respiratory Effort Respiratory Depth Respiratory Pattern Tachypnea Blood Pressure Blood Pressure Mean Blood Pressure Source Blood Pressure Position Blood Pressure Location Pulse Ox 93 92 94 Oxygen Delivery Method Oxygen Flow Rate (L/min) Fraction of Inspired Oxygen (FIO2) 35 30 35 11/03/21 09:32 11/03/21 10:32 11/03/21 10:37 Temperature 97.6 F L 97.4 F L Temperature Source Temporal Temporal Pulse Rate 99 103 H 100 Respiratory Rate 19 H 24 H 24 H Respiratory Effort Respiratory Depth Respiratory Pattern Tachypnea Blood Pressure 116/102 H 148/72 H Blood Pressure Mean 106 97 Blood Pressure Source Monitor Blood Pressure Position Semi-Fowlers Blood Pressure Location Left Arm Pulse Ox 95 97 96 Oxygen Delivery Method Bi-pap Bi-pap Oxygen Flow Rate (L/min) Fraction of Inspired Oxygen (FIO2) 35 35 35 11/03/21 10:35 11/03/21 10:35 11/03/21 10:45 Temperature Temperature Source Pulse Rate Respiratory Rate 24 H Respiratory Effort Short of Breath Short of Breath Respiratory Depth Shallow Shallow Respiratory Pattern Irregular Tachypnea Blood Pressure Blood Pressure Mean Blood Pressure Source Blood Pressure Position Blood Pressure Location Pulse Ox 94 95 Oxygen Delivery Method Nasal Cannula Bi-pap Bi-pap Oxygen Flow Rate (L/min) 10 Fraction of Inspired Oxygen (FIO2) 35 Weight Weight: 240 lb 11.916 oz Body Mass Index (BMI) 40.0 Physical Exam Const alert and oriented x3 Constitutional Narrative: On BiPAP HEENT normocephalic and moist oral mucous membranes Eyes PERRL, EOMs intact bilaterally and conjunctivae normal Neck no lymphadenopathy Resp Resp Narrative: On BiPAP, tachypneic Auscultation: crackles and diminished lung sounds Cardio regular rate, regular rhythm and no murmurs Peripheral Pulses: pulses 2+ throughout GI normal to inspection, nondistended, normoactive bowel sounds, non-tender and non-distended Extremity normal to inspection Skin no rashes or lesions noted Skin Narrative: Left foot dressing intact Lesions: no lesions Rashes: no rashes Trauma: no lacerations or abrasions Neuro CN's II-XII intact bilaterally, no focal motor deficits, no sensory deficits noted and deep tendon reflexes 2+ bilaterally Psych mental status grossly normal and affect normal Results Lab / Micro Data Result Diagrams: 11/03/21 08:15 11/03/21 08:15 Labs: Laboratory Results - last 24 hr 11/03/21 08:15: WBC 9.3, RBC 2.88 L, Hgb 8.1 L, Hct 26.6 L, MCV 92.4, MCH 28.1, MCHC 30.5 L, RDW Std Deviation 52.8 H, RDW Coeff of Magen 15.7 H, Plt Count 136 L, MPV 11.2, Immature Gran % (Auto) 0.500, Neut % (Auto) 95.9 H, Lymph % (Auto) 2.5 L, Yancey % (Auto) 1.0, Eos % (Auto) 0.0, Baso % (Auto) 0.1, Absolute Neuts (auto) 8.9 H, Absolute Lymphs (auto) 0.23 L, Nucleated RBC % 0, Differential Comment COMMENT 11/03/21 08:15: Sodium 142, Potassium 4.2, Chloride 101, Carbon Dioxide 32.0, Anion Gap 9, BUN 48 H, Creatinine 1.35 H, Estim Creat Clear Calc 37.38, Est GFR (MDRD) Af Amer 51 L, Est GFR (MDRD) Non-Af 42 L, BUN/Creatinine Ratio 35.6 H, Glucose 309 H, Calcium 9.5, Troponin I High Sens 18 11/03/21 08:15: B-Natriuretic Peptide 211.0 H 11/03/21 10:55: Troponin I High Sens 20 Micro: Microbiology 11/03/21 08:45 Nasal Secretion SARS-CoV-2 Antigen (Rapid) - Final Radiology Impression Chest X-Ray 11/03/21 08:18 IMPRESSION: Aggressive infiltrates in the right hemithorax with the residual left pulmonary infiltrates although there has been improved aeration as compared to prior study. Questionable 4.27 x 4.1 cm cavitated nodule in the left lung base. Electronically Signed: Butch Ling MD at 8:35 EDT , Assessment & Plan Assessment/Plan (1) Acute respiratory failure with hypoxia: PLAN: Plan 1.? Acute on chronic hypoxic respiratory failure secondary to acute on chronic heart failure with preserved ejection fraction and hospital-acquired pneumonia-requiring BiPAP on admission. CTA with diffuse bilateral pulmonary infiltrates and small bilateral pleural effusions. Continue supplemental oxygen to maintain O2 at above 90%. 2.? Hospital-acquired pneumonia-IV azithromycin, IV vancomycin and IV cefepime. Albuterol and DuoNeb aerosols. Send sputum for culture. Blood cultures pending. Urine for strep and Legionella negative. Respiratory panel pending. 3.? Acute on chronic heart failure with preserved ejection fraction-recent echocardiogram with EF 55%, moderate mitral valve insufficiency, moderate tricuspid valve insufficiency.? IV Lasix.? Strict I&O.? Daily weight.? 4.? Chronic anemia with recent GI bleed-recent Colonoscopy without evidence of bleeding, poor prep.? EGD with esophageal plaques consistent with candidiasis, nonbleeding gastric ulcer which was biopsied.? Continue PPI.? Outpatient follow-up with GI. Trend CBC. 5.?Recent Proteus bacteremia secondary to left great toe neuropathic infected wound-Underwent left hallux amputation 10/21/2021.?Wound RN consult. 6.? Suspected recent new onset atrial fibrillation-Noted during recent admission.? Did not initiate anticoagulation secondary to GI bleed.? Continue rate control regimen.? Outpatient follow-up. 7. Type 2 diabetes [id number] with sliding scale insulin.? Continue home insulin regimen. 8. Hypothyroidism-continue Synthroid regimen. 9. CAD-continue medical management. 10. Hyperlipidemia-continue statin. 11. Depression/anxiety-on bupropion, Ativan, paroxetine. 12. Chronic COPD-as needed albuterol aerosol. 13. Chronic kidney disease stage IIIb-appears at baseline DVT prophylaxis- Lovenox sc This patient was seen by DEVON Woodward under the supervision of Dr. Roberts. Documented by User: Dr. Augie Roberts MD 11/03/21 12:58 HPI - General General Date of Admission: 11/03/21 [facility] Medical History Acute cervical myofascial strain Acute on chronic respiratory failure with hypoxemia Amputated toe of left foot Anemia Asthma Atherosclerotic heart disease of [place] coronary artery without angina pectoris Atrial fibrillation CAD (coronary artery disease) Chronic heart failure with preserved ejection fraction (HFpEF) Chronic heel ulcer Chronic respiratory failure with hypoxia, on home oxygen therapy Chronic ulcer of great toe of left foot Closed head injury Congestive heart failure (CHF) COPD (chronic obstructive pulmonary disease) Decubitus ulcer of dorsum of foot, stage 2 Decubitus ulcer of left heel, stage 2 Decubitus ulcer of left heel, stage 3 Decubitus ulcer, heel, left, unstageable Depression Diabetes mellitus with diabetic polyneuropathy Diabetes type 2, controlled Diabetic foot ulcers Diverticulitis Essential hypertension Former smoker History of amputation of left great toe History of non-ST elevation myocardial infarction (NSTEMI) (02/24/17) Hyperlipidemia Hypothyroid Myocardial infarct Non-rheumatic tricuspid valve insufficiency Nondisplaced fracture of distal phalanx of right great toe, initial encounter for closed fracture Nonrheumatic mitral (valve) insufficiency Obesity Obstructive sleep apnea On home O2 Renal insufficiency Secondary pulmonary arterial hypertension Type 2 diabetes mellitus Home Medications bupropion HCl 300 mg 24 hr tablet, extended release 150 mg PO QHS depression 09/02/20 [History Last Taken 10/13/21] fluticasone furoate 100 mcg-vilanterol 25 mcg/dose inhalation powder (Breo Ellipta) 1 inh inhalation BID breathing 09/02/20 [History Last Taken 10/14/21] fluticasone propionate 50 mcg/actuation nasal spray,suspension 1 spray intranasal DAILY PRN Allergies 09/02/20 [History Last Taken 09/02/20] furosemide 80 mg tablet 80 mg PO DAILY water pill 09/02/20 [History Last Taken 10/14/21] levothyroxine 88 mcg tablet 88 mcg PO DAILY thyroid 09/02/20 [History Last Taken 10/14/21] lorazepam 1 mg tablet 0.5 mg PO QHS anxiety 09/02/20 [History Last Taken 10/13/21] montelukast 10 mg tablet 10 mg PO DAILY allergies 09/02/20 [History Last Taken 10/14/21] trazodone 100 mg tablet 50 mg PO QHS sleep 09/02/20 [History Last Taken 10/13/21] aspirin 81 mg tablet,delayed release (Adult Aspirin Regimen) 81 mg PO DAILY heart 05/17/21 [History Last Taken 10/14/21 09:30] amlodipine 10 mg tablet 10 mg PO DAILY bp 08/25/21 [History Last Taken 10/14/21 09:30] gabapentin 100 mg capsule (Neurontin) 100 mg PO TID nerve pain 08/25/21 [History Last Taken 10/14/21] insulin detemir U-100 100 unit/mL (3 mL) subcutaneous pen 30 unit subcut QHS blood sugar 09/02/21 [History Last Taken 10/13/21] insulin lispro 100 unit/mL subcutaneous pen 7 unit subcut ACHS blood sugar 09/02/21 [History Last Taken 10/14/21] ipratropium 0.5 mg-albuterol 3 mg (2.5 mg base)/3 mL nebulization soln 3 ml inhalation BID PRN sob 09/02/21 [History Last Taken Unknown] paroxetine HCl 30 mg tablet 40 mg PO QHS mental health 09/02/21 [History Last Taken 10/13/21] atorvastatin 80 mg tablet 80 mg PO QHS Cholestrol 10/22/21 [History Last Taken Unknown] carvedilol 6.25 mg tablet 6.25 mg PO BID BP 10/22/21 [History Last Taken Unknown] pantoprazole 40 mg tablet,delayed release 40 mg PO BID GERD 10/22/21 [History Last Taken Unknown] acetaminophen 500 mg tablet 1,000 mg PO Q8H PRN Pain 11/03/21 [History Last Taken Unknown] arginine 7 gram-glutamine 7 gram-calcium HMB 1.5 gram oral powder pack (Say) 1 ea PO BID 11/03/21 [History Last Taken Unknown] bisacodyl 10 mg rectal suppository 10 mg OK DAILY PRN Constipation 11/03/21 [History Last Taken Unknown] ceftriaxone 1 gram intravenous piggyback 1 g IV Q12H 11/03/21 [History Last Taken Unknown] collagenase clostridium histo. 250 unit/gram topical ointment (Santyl) 1 applic topical DAILY 11/03/21 [History Last Taken Unknown] doxycycline monohydrate 100 mg tablet 100 mg PO BID 11/03/21 [History Last Taken Unknown] menthol 0.44 %-zinc oxide 20.6 % topical ointment (Calmoseptine) 1 applic topical BID 11/03/21 [History Last Taken Unknown] methylprednisolone 4 mg tablet 0 mg PO UD steriod 11/03/21 [History Last Taken Unknown] nystatin 100,000 unit/gram topical powder 1 applic topical BID 11/03/21 [History Last Taken Unknown] oxycodone 5 mg tablet 5 mg PO Q4H PRN Pain 11/03/21 [History Last Taken Unknown] potassium chloride 20 mEq tablet,extended release 20 meq PO BID 11/03/21 [History Last Taken Unknown] sennosides 8.6 mg tablet (senna) 17.2 mg PO BID 11/03/21 [History Last Taken Unknown] Allergy/AdvReac Type Severity Reaction Status Date / Time Sulfa (Sulfonamide Allergy Anaphylaxis Verified 11/03/21 08:07 Antibiotics) sulfur dioxide Allergy Anaphylaxis Verified 11/03/21 08:07 Family History Grandmother Diabetes Mother Heart disease Surgical History H/O right heart catheterization History of cataract surgery History of coronary artery stent placement (02/24/17) Tubal ligation status Social History household members: none housing: other details: [facility]. Smoking Status: Former smoker how long ago did patient quit smokin alcohol intake: former year quit: 1999 substance use type: does not use caffeine: Yes Type: carbonated beverages and tea Results Lab / Micro Data Result Diagrams: 11/03/21 08:15 11/03/21 08:15 Assessment & Plan Assessment/Plan (1) Acute respiratory failure with hypoxia: Addt'l Comments This patient was seen in conjunction with DEVON Woodward . I have independently interviewed and examined the patient and reviewed pertinent historical, laboratory, and other data. Please refer to DEVON Woodward note for details of this patient's presentation, findings, and recommendations. I have reviewed DEVON Woodward note and concur with documented findings. In brief, patient is a 66-year-old lady who recently underwent left hallux amputation as a result of neuropathic infected wound was transferred to transitional care unit to continue with her recuperation. Patient did develop progressive shortness of breath over 2-day. Was eventually sent to the emergency department where she was placed on noninvasive ventilation BiPAP. Admitted to a monitored bed as a case of acute hypoxic respiratory failure due to combination of suspected healthcare associated pneumonia and CHF Physical Examination: GENERAL: Dyspneic at rest HEENT: Atraumatic; EYES; Anicteric, Normal Conjunctiva NECK; supple, normal thyroid, RESPIRATORY: Diminished to auscultation CARDIOVASCULAR: Regular S1 S2, GI: soft, normoactive bowel sounds, : No Renal angle tenderness; EXTREMITIES: Trace bipedal edema, left foot in surgical dressing MUSCULOSKELETAL: no muscle wasting NEURO: Awake; no lateralizing signs. SKIN: No Rash PSYCH; Flat affect Assessment: 1. Acute hypoxic respiratory failure 2. Chronic hypoxic respiratory failure 3. Pneumonia with suspected gram-negative organisms 4. Acute on chronic congestive heart failure with preserved ejection fraction?EF 55% 5. Anemia of chronic disorder 6. 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 Diabetes 8. Hypothyroidism 9. Paroxysmal A. fib 10. Class III obesity with BMI of 40.1 11. Dyslipidemia 12. Depression anxiety 13. Chronic kidney disease stage IIIb 14. Recent diagnosis of esophageal candidiasis 15. COPD 16. Obstructive sleep apnea 17. DVT prophylaxis Recommendations: 1. I have discussed the results of my overview and impressions with the patient 2. Options for management were reviewed Total time spent by myself and the advanced practice practitioner evaluating patient, reviewing labs, subsequent management decisions, discussion with patient as well as other providers 72 minutes ( 42 of which was spent by myself) Advance planning; did discuss with the patient regarding advanced directives as well as CODE STATUS. Did explain the various scenarios involved ( FULL CODE, DNR CCA, DNR CCA with no intubation, and DNR CC and what each meant) patient elected to be DNR CCA no intubation. Order was placed. Time spent on discussion 18 minutes. Charges/Coding Visit Charges Inpatient E&M: 73081 Init Hosp L3 Procedures Hospitalists Procedures: 32212 Advncd Care Plan 30 Min
--- NOTE | 2021-11-03 11:49 | WOUNDNOTE ---
wound photo: left foot
--- NOTE | 2021-11-03 11:49 | WOUNDNOTE ---
wound photo: left foot
[2021-11-03] MEDS: Enoxaparin 40 MG/0.4 ML Syringe SC ×2 (11:50→22:20)
[2021-11-03] MEDS: Acetaminophen 325 MG Tablet 650 MG PO (11:50)
[2021-11-03] MEDS: oxyCODONE 5 MG Tablet PO (11:50)
--- NOTE | 2021-11-03 11:50 | WOUNDNOTE ---
wound photo: left heel
[2021-11-03] MEDS: Insulin Lispro 100 UNIT/ML INSULN.PEN SC ×3 (11:59→22:41)
[2021-11-03 12:21] LABS: Bedside Glucose 288 mg/dL (74-106)
[2021-11-03] MEDS: 0.9 % NaCl (Sterile) Posiflush 10 mL IV ×3 (14:19→22:51)
[2021-11-03 15:31] LABS: Troponin-I HS 19 pg/mL (3.0-54.0)
[2021-11-03 18:04] LABS: M R Staph aureus DNA By PCR Negative (Negative); Probe Check PASS; Specimen Processing Control PASS
[2021-11-03] MEDS: Ondansetron 4 MG/2 ML Vial IV (22:49)
[2021-11-04] VITALS (41 sets, daily range): BP systolic 93–164; BP diastolic 51–146; PULSE 73–172; RESP 12–29; TEMP 35.8–37.1; O2SAT 67–97
[2021-11-04 00:01] LABS: Bedside Glucose 278 mg/dL (74-106)
[2021-11-04 00:01] LABS: Bedside Glucose 201 mg/dL (74-106)
--- NOTE | 2021-11-04 01:11 | CPS ---
Pt nauseated. Bipap off nasal o2 at 7 L 96 %
--- NOTE | 2021-11-04 04:59 | CPS ---
Pt has been nauseated off and on most of night. Nasal o2 at 8L spo2 92
[2021-11-04] MEDS: Furosemide 40 MG/4 ML Vial IV ×2 (05:58→18:58)
[2021-11-04] MEDS: 0.9 % NaCl (Sterile) Posiflush 10 mL IV ×4 (05:59→17:17)
[2021-11-04] MEDS: Insulin Lispro 100 UNIT/ML INSULN.PEN SC ×4 (06:36→21:36)
[2021-11-04 06:43] LABS: Absolute Lymphocyte Count 0.39 X10^3/uL (0.83-4.51); Absolute Neutrophil Count 10.4 X10^3/uL (2.0-7.7); Basophil# 0.04 X10^3/uL; Basophil% 0.3 % (0-1); Eosinophil# 0.29 X10^3/uL; Eosinophils% 2.5 % (0-5); Hematocrit 24.3 % (37-47); Hemoglobin 7.3 g/dL (12.0-15.0); Lymphocyte # 0.39 X10^3/ul (0.83-4.51); Lymphocyte % 3.3 % (19-41); Mean Corpuscular Volume 93.1 fL (81-99); Mean Platelet Vol. 10.9 fl (6.2-12.0); Monocyte# 0.56 X10^3/uL; Monocyte% 4.8 % (0-10); NRBC Flagged by Analyzer 0 % (0-5); Neutrophil # 10.39 X10^3/uL (2.7-7.7); Neutrophil % 88.6 % (47-70); POSITIVE DIFFERENTIAL YES; Platelet Count 126 K/mm3 (150-450); RBC Distribution Width CV 16.2 % (11.6-14.6); RBC Distribution Width SD 55.3 fl (35.1-43.9); Red Blood Count 2.61 M/mm3 (4.2-5.4); White Blood Count 11.7 K/mm3 (4.4-11.0)
[2021-11-04 06:47] LABS: Differential Indicated SCAN CRITERIA MET
[2021-11-04 07:01] LABS: Anisocytosis 1+; Platelet Estimate SLT DEC (ADEQ)
[2021-11-04 07:05] LABS: Bedside Glucose 207 mg/dL (74-106)
[2021-11-04 07:07] LABS: Anion Gap 8 (5-15); BUN 41 mg/dL (7-18); BUN/Creat Ratio 29.5 RATIO (10-20); Calcium,Total 8.9 mg/dL (8.5-10.1); Chloride 100 mmol/L (98-107); Creatinine, Serum 1.39 mg/dL (0.55-1.02); EST Glomerular Filtration Rate 40 mL/min (>60); Est Glom Filt Rate - Afr Amer 49 mL/min (>60); Estimated Creatinine Clearance 36.31 ml/min; Glucose 208 mg/dL (74-106); Phosphorus 2.8 mg/dL (2.5-4.9); Potassium 3.7 mmol/L (3.5-5.1); Sodium Level 140 mmol/L (136-145)
[2021-11-04] MEDS: Albuterol 2.5 MG/3 ML VIAL.NEB. INHALATION (07:23)
[2021-11-04] MEDS: oxyCODONE 5 MG Tablet PO ×2 (07:59→21:28)
[2021-11-04] MEDS: Ondansetron 4 MG/2 ML Vial IV (08:00)
[2021-11-04] MEDS: Acetaminophen 325 MG Tablet 650 MG PO ×2 (08:00→21:28)
[2021-11-04] MEDS: Collagenase 30gm Tube 1 APPLIC TOPICAL (09:03)
--- NOTE | 2021-11-04 09:31 | CON.PCM.CC_ITS ---
Assessment & Plan Assessment/Plan (1) Acute and chronic respiratory failure with hypoxia: PLAN: Plan RECOMMENDATIONS: 1. Wean supplemental oxygen for saturations at or above 90%. 2. Continue empiric broad-spectrum antimicrobials. 3. Start scheduled bronchodilators and IV steroids. 4. Continue diuretics as tolerated by hemodynamics and renal function. 5. Encourage BiPAP utilization with naps and nightly. 6. Encourage incentive spirometer use and mobilize patient as tolerated. 7. Ultimately, the patient will require outpatient pulmonary follow-up so that PFTs and sleep study can be completed. IMPRESSIONS: 1. Acute on chronic hypoxemic respiratory failure Most likely multifactorial in etiology with possible obstructive lung disease, pulmonary hypertension and heart failure with preserved ejection fraction contributing. CTA chest showed no evidence for pulmonary embolism but revealed findings concerning for bilateral pneumonia. Accordingly, the patient has been maintained on broad-spectrum antimicrobials, which I would recommend be continued. In the interim, continue scheduled bronchodilators as tolerated by hemodynamics and renal function. I am going to add scheduled bronchodilators and IV steroids to the patient's current medication regimen. I strongly advocated that the patient utilize her BiPAP with naps and nightly. Continue to wean supplemental oxygen for saturations greater than 90%. Encourage incentive spirometer use and mobilize patient as tolerated. 2. Pulmonary hypertension/questionable sleep apnea During the patient's last office visit with Dr. Mcwilliams in January 2021, a split-night sleep study and PFTs were ordered. However, the patient never completed testing. Therefore, for now, it is reasonable to continue empiric BiPAP therapy with naps and nightly. 3. Chronic anemia/recent Proteus bacteremia/paroxysmal atrial fibrillation/hy pothyroidism/morbid obesity/depression/anxiety Complicates care, management, recovery and prognosis. Continue home medications as indicated. This note was generated with [employer] dictation software. It may contain incorrect words, spelling, and punctuation that were not noted in checking the note before signing. HPI Consult Data Date of Consult: 11/04/21 HPI Narrative Reason for Consultation: Respiratory failure HPI Narrative: The patient is a 66-year-old female, with a history as outlined below, who presented to the emergency department from the transitional care unit on November 02 with altered mental status. The patient had just been discharged from the hospital on October 22 after having been admitted from October 14 with acute on chronic respiratory failure, presumed secondary to a COPD exacerbation and acute decompensated heart failure with preserved ejection fraction. Patient was also noted to be bacteremic from a Proteus wound infection. She has a known history of chronic hypoxemic respiratory failure with a baseline oxygen requirement of 3 L at rest and 4 L with exertion. Despite having a documented history of COPD, the PFTs that were ordered during her last office visit with Dr. Mcwilliams in January 2021 were never completed. On presentation to the emergency department, the patient was noted to be afebrile and hemodynamically stable. She was initially saturating in the high 90s on 6 L/min via nasal cannula. Initial laboratory evaluation revealed no evidence of a leukocytosis. Platelet count was low at 146,000. Chemistry profile was notable for a bicarbonate of 34. Creatinine was stable at 1.27. BNP was elevated at 207 with negative troponin. The patient has been maintained on antimicrobials along with scheduled IV diuretic therapy. Her hospital course to date has included worsening oxygenation status, now requiring 10 L/min via nasal cannula. A CTA chest was obtained on November 02 which showed no evidence for pulmonary embolism but did demonstrate small bilateral pleural effusions and bilateral pneumonia. Again, despite her documented history of COPD, the patient is not currently on any scheduled bronchodilators. The patient currently endorses the presence of shortness of breath and a nonproductive cough. She denies the presence of any chest pain. [facility] Medical History Acute cervical myofascial strain Acute on chronic respiratory failure with hypoxemia Amputated toe of left foot Anemia Asthma Atherosclerotic heart disease of [place] coronary artery without angina pectoris Atrial fibrillation CAD (coronary artery disease) Chronic heart failure with preserved ejection fraction (HFpEF) Chronic heel ulcer Chronic respiratory failure with hypoxia, on home oxygen therapy Chronic ulcer of great toe of left foot Closed head injury Congestive heart failure (CHF) COPD (chronic obstructive pulmonary disease) Decubitus ulcer of dorsum of foot, stage 2 Decubitus ulcer of left heel, stage 2 Decubitus ulcer of left heel, stage 3 Decubitus ulcer, heel, left, unstageable Depression Diabetes mellitus with diabetic polyneuropathy Diabetes type 2, controlled Diabetic foot ulcers Diverticulitis Essential hypertension Former smoker History of amputation of left great toe History of non-ST elevation myocardial infarction (NSTEMI) (02/24/17) Hyperlipidemia Hypothyroid Myocardial infarct Non-rheumatic tricuspid valve insufficiency Nondisplaced fracture of distal phalanx of right great toe, initial encounter for closed fracture Nonrheumatic mitral (valve) insufficiency Obesity Obstructive sleep apnea On home O2 Renal insufficiency Secondary pulmonary arterial hypertension Type 2 diabetes mellitus Home Medications bupropion HCl 300 mg 24 hr tablet, extended release 150 mg PO QHS depression 09/02/20 [History Last Taken 10/13/21] fluticasone furoate 100 mcg-vilanterol 25 mcg/dose inhalation powder (Breo Ellipta) 1 inh inhalation BID breathing 09/02/20 [History Last Taken 10/14/21] fluticasone propionate 50 mcg/actuation nasal spray,suspension 1 spray intranasal DAILY PRN Allergies 09/02/20 [History Last Taken 09/02/20] furosemide 80 mg tablet 80 mg PO DAILY water pill 09/02/20 [History Last Taken 10/14/21] levothyroxine 88 mcg tablet 88 mcg PO DAILY thyroid 09/02/20 [History Last Taken 10/14/21] lorazepam 1 mg tablet 0.5 mg PO QHS anxiety 09/02/20 [History Last Taken 10/13/21] montelukast 10 mg tablet 10 mg PO DAILY allergies 09/02/20 [History Last Taken 10/14/21] trazodone 100 mg tablet 50 mg PO QHS sleep 09/02/20 [History Last Taken 10/13/21] aspirin 81 mg tablet,delayed release (Adult Aspirin Regimen) 81 mg PO DAILY heart 05/17/21 [History Last Taken 10/14/21 09:30] amlodipine 10 mg tablet 10 mg PO DAILY bp 08/25/21 [History Last Taken 10/14/21 09:30] gabapentin 100 mg capsule (Neurontin) 100 mg PO TID nerve pain 08/25/21 [History Last Taken 10/14/21] insulin detemir U-100 100 unit/mL (3 mL) subcutaneous pen 30 unit subcut QHS blood sugar 09/02/21 [History Last Taken 10/13/21] insulin lispro 100 unit/mL subcutaneous pen 7 unit subcut ACHS blood sugar 09/02/21 [History Last Taken 10/14/21] ipratropium 0.5 mg-albuterol 3 mg (2.5 mg base)/3 mL nebulization soln 3 ml inhalation BID PRN sob 09/02/21 [History Last Taken Unknown] paroxetine HCl 30 mg tablet 40 mg PO QHS mental health 09/02/21 [History Last Taken 10/13/21] atorvastatin 80 mg tablet 80 mg PO QHS Cholestrol 10/22/21 [History Last Taken Unknown] carvedilol 6.25 mg tablet 6.25 mg PO BID BP 10/22/21 [History Last Taken Unknown] pantoprazole 40 mg tablet,delayed release 40 mg PO BID GERD 10/22/21 [History Last Taken Unknown] acetaminophen 500 mg tablet 1,000 mg PO Q8H PRN Pain 11/03/21 [History Last Taken Unknown] arginine 7 gram-glutamine 7 gram-calcium HMB 1.5 gram oral powder pack (Say) 1 ea PO BID 11/03/21 [History Last Taken Unknown] bisacodyl 10 mg rectal suppository 10 mg MA DAILY PRN Constipation 11/03/21 [History Last Taken Unknown] ceftriaxone 1 gram intravenous piggyback 1 g IV Q12H 11/03/21 [History Last Taken Unknown] collagenase clostridium histo. 250 unit/gram topical ointment (Santyl) 1 applic topical DAILY 11/03/21 [History Last Taken Unknown] doxycycline monohydrate 100 mg tablet 100 mg PO BID 11/03/21 [History Last Taken Unknown] menthol 0.44 %-zinc oxide 20.6 % topical ointment (Calmoseptine) 1 applic topical BID 11/03/21 [History Last Taken Unknown] methylprednisolone 4 mg tablet 0 mg PO UD steriod 11/03/21 [History Last Taken Unknown] nystatin 100,000 unit/gram topical powder 1 applic topical BID 11/03/21 [History Last Taken Unknown] oxycodone 5 mg tablet 5 mg PO Q4H PRN Pain 11/03/21 [History Last Taken Unknown] potassium chloride 20 mEq tablet,extended release 20 meq PO BID 11/03/21 [History Last Taken Unknown] sennosides 8.6 mg tablet (senna) 17.2 mg PO BID 11/03/21 [History Last Taken Unknown] Allergy/AdvReac Type Severity Reaction Status Date / Time Sulfa (Sulfonamide Allergy Anaphylaxis Verified 11/03/21 08:07 Antibiotics) sulfur dioxide Allergy Anaphylaxis Verified 11/03/21 08:07 Family History Grandmother Diabetes Mother Heart disease Surgical History H/O right heart catheterization History of cataract surgery History of coronary artery stent placement (02/24/17) Tubal ligation status Social History household members: none housing: other details: [facility]. Smoking Status: Former smoker how long ago did patient quit smokin alcohol intake: former year quit: 1999 substance use type: does not use caffeine: Yes Type: carbonated beverages and tea ROS ROS Narrative 10 systems were reviewed with pertinent positives as noted in the HPI above. Physical Exam Const alert, oriented x3 and no apparent distress Constitutional Narrative: Sitting in bedside recliner. Nutritional Appearance: obese HEENT normocephalic and head/scalp atraumatic Eyes PERRL, EOMs intact bilaterally and conjunctivae normal Neck supple General: trachea midline Chest inspection of chest normal Resp normal respiratory effort and no use of accessory muscles Auscultation: diminished lung sounds; Negative for rales, rhonchi or wheezes Cardio regular rate and regular rhythm GI normal to inspection, nondistended, normoactive bowel sounds Extremity General Extremity: edema; Negative for clubbing Skin General Skin Exam: venous stasis and dermatitis Neuro CN's II-XII intact bilaterally, moves all extremities and no focal motor deficits Psych cooperative and affect normal Lab / Micro Data Result Diagrams: 11/04/21 05:50 11/04/21 05:50 Labs: Laboratory Results - last 24 hr 11/03/21 10:55: Troponin I High Sens 20 11/03/21 11:54: POC Glucose 288 H 11/03/21 13:35: MRSA (PCR) Negative 11/03/21 14:41: Troponin I High Sens 19 11/03/21 16:28: POC Glucose 278 H 11/03/21 22:41: POC Glucose 201 H 11/04/21 05:50: WBC 11.7 H, RBC 2.61 L, Hgb 7.3 L, Hct 24.3 L, MCV 93.1, MCH 2 8.0, MCHC 30.0 L, RDW Std Deviation 55.3 H, RDW Coeff of Magen 16.2 H, Plt Count 126 L, MPV 10.9, Immature Gran % (Auto) 0.500, Neut % (Auto) 88.6 H, Lymph % (Auto) 3.3 L, [place] % (Auto) 4.8, Eos % (Auto) 2.5, Baso % (Auto) 0.3, Absolute Neuts (auto) 10.4 H, Absolute Lymphs (auto) 0.39 L, Nucleated RBC % 0, Platelet Estimate SLT DEC, Anisocytosis 1+ 11/04/21 05:50: Sodium 140, Potassium 3.7, Chloride 100, Carbon Dioxide 32.0, Anion Gap 8, BUN 41 H, Creatinine 1.39 H, Estim Creat Clear Calc 36.31, Est GFR (MDRD) Af Amer 49 L, Est GFR (MDRD) Non-Af 40 L, BUN/Creatinine Ratio 29.5 H, Glucose 208 H, Calcium 8.9, Phosphorus 2.8, Magnesium 2.0 11/04/21 06:35: POC Glucose 207 H Micro: Microbiology 11/03/21 10:28 Mucosa - Nose Respiratory Panel (PCR) - Final 11/03/21 10:45 Urine, Clean Catch Streptococcus pneumoniae Antigen (M - Final 11/03/21 10:45 Urine, Clean Catch Legionella Antigen - Final 11/03/21 08:45 Nasal Secretion SARS-CoV-2 Antigen (Rapid) - Final Charges/Coding Visit Charges Inpatient E&M: 42225 Init Hosp L3
--- NOTE | 2021-11-04 10:24 | WOUNDNOTE ---
wound photo: right heel
--- NOTE | 2021-11-04 10:49 | PN.HOSP_ITS ---
Documented by User: Laura Suarez NP, PITTING MACHINE OPERATOR-C 11/04/21 11:16 Subjective Subjective Patient seen and examined. Reports she did not sleep well overnight. States she intermittently felt like she could not breathe. Requiring increased supplemental oxygen overnight and this morning. States she does not do well with BiPAP. Objective Data Objective Data Vital Signs: Vital Signs Temp Pulse Resp BP Pulse Ox O2 Del Method O2 Flow Rate 98.4 F 108 H 20 H 145/64 H 91 Nasal Cannula 10 11/04/21 05:30 11/04/21 07:00 11/04/21 05:30 11/04/21 05:30 11/04/21 08:56 11/04/21 08:56 11/04/21 08:56 FiO2 35 11/04/21 01:00 Oxygen Flow Rate (L/min) 10 Oxygen Delivery Method Nasal Cannula Weight: 240 lb 11.916 oz Body Mass Index (BMI) 40.0 Intake & Output: Intake and Output for Last 24 Hours 11/02/21 11/03/21 11/04/21 23:59 23:59 23:59 Intake Total 1200 / 1600 620 / 620 Output Total 500 / 850 850 / 850 Balance 700 / 750 -230 / -230 Lab / Micro Data Result Diagrams: 11/04/21 05:50 11/04/21 05:50 Labs: Laboratory Results - last 24 hr 11/03/21 10:55: Troponin I High Sens 20 11/03/21 11:54: POC Glucose 288 H 11/03/21 13:35: MRSA (PCR) Negative 11/03/21 14:41: Troponin I High Sens 19 11/03/21 16:28: POC Glucose 278 H 11/03/21 22:41: POC Glucose 201 H 11/04/21 05:50: WBC 11.7 H, RBC 2.61 L, Hgb 7.3 L, Hct 24.3 L, MCV 93.1, MCH 28.0, MCHC 30.0 L, RDW Std Deviation 55.3 H, RDW Coeff of Magen 16.2 H, Plt Count 126 L, MPV 10.9, Immature Gran % (Auto) 0.500, Neut % (Auto) 88.6 H, Lymph % (Auto) 3.3 L, Toombs % (Auto) 4.8, Eos % (Auto) 2.5, Baso % (Auto) 0.3, Absolute Neuts (auto) 10.4 H, Absolute Lymphs (auto) 0.39 L, Nucleated RBC % 0, Platelet Estimate SLT DEC, Anisocytosis 1+ 11/04/21 05:50: Sodium 140, Potassium 3.7, Chloride 100, Carbon Dioxide 32.0, Anion Gap 8, BUN 41 H, Creatinine 1.39 H, Estim Creat Clear Calc 36.31, Est GFR (MDRD) Af Amer 49 L, Est GFR (MDRD) Non-Af 40 L, BUN/Creatinine Ratio 29.5 H, Glucose 208 H, Calcium 8.9, Phosphorus 2.8, Magnesium 2.0 11/04/21 06:35: POC Glucose 207 H Micro: Microbiology 11/03/21 10:28 Mucosa - Nose Respiratory Panel (PCR) - Final 11/03/21 10:45 Urine, Clean Catch Streptococcus pneumoniae Antigen (M - Final 11/03/21 10:45 Urine, Clean Catch Legionella Antigen - Final 11/03/21 08:45 Nasal Secretion SARS-CoV-2 Antigen (Rapid) - Final Physical Exam Const alert and oriented x3 HEENT normocephalic and moist oral mucous membranes Eyes PERRL, EOMs intact bilaterally and conjunctivae normal Neck no lymphadenopathy Resp clear to auscultation bilaterally Auscultation: diminished lung sounds Cardio regular rate, regular rhythm and no murmurs Peripheral Pulses: pulses 2+ throughout GI normal to inspection, nondistended, normoactive bowel sounds, non-tender and non-distended Extremity normal to inspection Skin no rashes or lesions noted Skin Narrative: Left foot dressing intact Lesions: no lesions Rashes: no rashes Trauma: no lacerations or abrasions Neuro CN's II-XII intact bilaterally, no focal motor deficits, no sensory deficits noted and deep tendon reflexes 2+ bilaterally Psych mental status grossly normal and affect normal Assessment & Plan Assessment/Plan (1) Acute and chronic respiratory failure with hypoxia: PLAN: Plan 1.? Acute on chronic hypoxic respiratory failure secondary to acute on chronic heart failure with preserved ejection fraction and hospital-acquired pneumonia- requiring BiPAP on admission.? CTA with diffuse bilateral pulmonary infiltrates and small bilateral pleural effusions.? Continue supplemental oxygen to maintain O2 at above 90%. Pulmonary medicine consulted. IV steroids added for suspected obstructive lung disease. Patient will need outpatient follow up with pulmonary medicine for PFTs. 2.? Hospital-acquired pneumonia-IV azithromycin, IV vancomycin and IV cefepime.? Albuterol and DuoNeb aerosols.? Send sputum for culture.? Blood cultures pending.? Urine for strep and Legionella negative.? Respiratory panel negative. 3.? Acute on chronic heart failure with preserved ejection fraction-recent echocardiogram with EF 55%, moderate mitral valve insufficiency, moderate tricuspid valve insufficiency.? IV Lasix.? Strict I&O.? Daily weight.? 4.? Chronic anemia with recent GI bleed-recent Colonoscopy without evidence of bleeding, poor prep.? EGD with esophageal plaques consistent with candidiasis, nonbleeding gastric ulcer which was biopsied.? Continue PPI.? Outpatient follow- up with GI.? Trend CBC. Transfuse for hgb less than 7. 5.?Recent Proteus bacteremia secondary to left great toe neuropathic infected wound-Underwent left hallux amputation 10/21/2021.?Wound RN consult. 6.? Suspected recent new onset atrial fibrillation-Noted during recent admission.? Did not initiate anticoagulation secondary to GI bleed.? Continue rate control regimen.? Outpatient follow-up. 7. Type 2 diabetes elbtonas-[id number]-[id number] with sliding scale insulin.? Continue home insulin regimen. 8. Hypothyroidism-continue Synthroid regimen. 9. CAD-continue medical management. 10. Hyperlipidemia-continue statin. 11. Depression/anxiety-on bupropion, Ativan, paroxetine. 12.? Chronic COPD-as needed albuterol aerosol. 13.? Chronic kidney disease stage IIIb-appears at baseline DVT prophylaxis- Lovenox sc This patient was seen by DEVON Woodward under the supervision of Dr. Roberts. Documented by User: Dr. Augie Roberts MD 11/04/21 12:09 Objective Data Lab / Micro Data Result Diagrams: 11/04/21 05:50 11/04/21 05:50 Assessment & Plan Assessment/Plan (1) Acute and chronic respiratory failure with hypoxia: Addt'l Comments This patient was seen in conjunction with DEVON Woodward .? I have independently interviewed and examined the patient and reviewed pertinent historical, laboratory, and other data.? Please refer to DEVON Woodward? note for details of this patient's presentation, findings, and recommendations.? I have reviewed? DEVON Woodward ? note and concur? with documented findings. In brief, patient is a 66-year-old lady who recently underwent left hallux amputation as a result of neuropathic infected wound was transferred to transitional care unit to continue with her recuperation.? Patient did develop progressive shortness of breath over 2-day.? Was eventually sent to the emergency department where she was placed on noninvasive ventilation BiPAP.? Admitted to a monitored bed as a case of acute hypoxic respiratory failure due to combination of suspected healthcare associated pneumonia and CHF 11/04/2021; patient seen still requiring significant amount of oxygen. Decision was made to consult pulmonary medicine. Patient responded well to diuresis as evidenced by increasing creatinine. Her diuretic dose subsequently adjusted Physical Examination: GENERAL: Dyspneic at rest HEENT: Atraumatic; EYES; Anicteric, Normal Conjunctiva NECK; supple, normal thyroid, RESPIRATORY: Diminished to auscultation CARDIOVASCULAR:? Regular S1 S2, GI:? soft, normoactive bowel sounds, : No Renal angle tenderness; EXTREMITIES: Trace bipedal edema, left foot in surgical dressing MUSCULOSKELETAL:? no muscle wasting NEURO:? Awake;? no lateralizing signs. SKIN:? No Rash PSYCH; Flat? affect Assessment: 1.? Acute hypoxic respiratory failure 2.? Chronic hypoxic respiratory failure 3.? Pneumonia with suspected gram-negative organisms 4.? Acute on chronic congestive heart failure with preserved ejection fraction?EF 55% 5.? Anemia of chronic disorder 6.? 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 Diabetes 8.? Hypothyroidism 9.? Paroxysmal A. fib 10.? Class III obesity with BMI of 40.1 11.? Dyslipidemia 12.? Depression anxiety 13.? Chronic kidney disease stage IIIb 14.? Recent diagnosis of esophageal candidiasis 15.? COPD 16.? Obstructive sleep apnea 17.? DVT prophylaxis Recommendations: 1.? I have discussed the results of my overview and impressions with the patient 2.? Options for management were reviewed Total time spent by myself and the advanced practice practitioner evaluating patient, reviewing labs, subsequent management decisions, discussion with patient as well as other providers 72 minutes ( 42 of which was spent by myself) Charges/Coding Visit Charges Inpatient E&M: 45065 Subs Hosp L3
[2021-11-04] MEDS: Enoxaparin 40 MG/0.4 ML Syringe SC ×2 (11:12→21:28)
[2021-11-04] MEDS: Pantoprazole Sodium 40 MG Tablet PO ×2 (12:12→21:27)
[2021-11-04 12:15] LABS: Bedside Glucose 198 mg/dL (74-106)
[2021-11-04] MEDS: Gabapentin 100 MG Capsule PO ×2 (12:23→17:48)
[2021-11-04] MEDS: LORazepam 0.5 MG Tablet PO (13:24)
[2021-11-04] MEDS: Ipratropium/Albuterol Sulfate 3 ML AMPUL.NEB INHALATION (15:09)
--- NOTE | 2021-11-04 15:45 | EKG12_ITS ---
Test Reason : Blood Pressure : / mmHG Vent. Rate : 162 BPM Atrial Rate : 000 BPM P-R Int : 000 ms QRS Dur : 080 ms QT Int : 296 ms P-R-T Axes : 000 097 207 degrees QTc Int : 485 ms Supraventricular tachycardia Rightward axis Marked ST abnormality, possible inferolateral subendocardial injury Abnormal ECG When compared with ECG of 04-NOV-2021 15:53, MANUAL COMPARISON REQUIRED, DATA IS UNCONFIRMED Confirmed by HEYDI ROSS, GODWIN ([id number]), editor department JASON PEREIRA ([id number]) on 11/08/2021 9:18:57 AM Referred By: BERNA Confirmed By:GODWIN SOLIZ MD
--- NOTE | 2021-11-04 15:53 | EKG12_ITS ---
Test Reason : Blood Pressure : / mmHG Vent. Rate : 108 BPM Atrial Rate : 108 BPM P-R Int : 168 ms QRS Dur : 086 ms QT Int : 344 ms P-R-T Axes : 081 080 255 degrees QTc Int : [address] & T wave abnormality, consider inferior ischemia Abnormal ECG When compared with ECG of 03-NOV-2021 08:14, MANUAL COMPARISON REQUIRED, DATA IS UNCONFIRMED Confirmed by HEYDI ROSS, GODWIN ([id number]), features editor JASON PEREIRA ([id number]) on 11/08/2021 9:20:31 AM Referred By: BERNA Confirmed By:GODWIN SOLIZ MD
--- NOTE | 2021-11-04 15:59 | NURSING ---
Telemetry alarming HR 160's. Into room to check on pt, observed anxious with labored breathing. Obtained VS, ordered STAT EKG. Had pt bear down, HR went from 158 to 108. Pt states she is feeling better. Breathing has slowed, pt not as anxious. Per Leonid RT, pt had just received a duoneb breathing treatment prior to HR increasing.
[2021-11-04] MEDS: Nitroglycerin (INPATIENT USE) 0.4 MG TAB.SUBL SL (16:31)
[2021-11-04] MEDS: Adenosine 6 MG/2 ML Syringe IV (17:00)
[2021-11-04] MEDS: Adenosine 6 MG/2 ML Syringe 12 MG IV (17:03)
[2021-11-04] MEDS: dilTIAZem 25 MG/5 ML Vial 20 MG IV BOLUS (17:15)
[2021-11-04 17:19] LABS: Hematocrit 25.6 % (37-47); Hemoglobin 7.9 g/dL (12.0-15.0)
--- NOTE | 2021-11-04 17:21 | PCM.HOSP.N ---
Hospitalist Note Notified by nursing patient SVT on telemetry with associated chest pain and diaphoresis. EKG completed which confirmed SVT. Nursing attempted for patient to bear down with no significant improvement. Adenosine 6 mg x 1 given with brief improved heart rate and again returned to 160s. Followed by adenosine 12 mg x 1 and patient maintained heart rate 120s. Cardizem 20 mg bolus x1 ordered followed by Cardizem drip. Cardiology consulted. Stat troponin, TSH and H&H ordered. Vital signs stable. Symptomatically improved.
--- NOTE | 2021-11-04 17:26 | NURSING ---
1630 pt c/o mid sternal chest pain that is sharp and rated 7/10. Reports is sweating. Noted diaphoretic. BS taken and in 200's. VS taken. See charted VS. Nitro given SL. See YEHUDA. Hammad Suarez NP updated by phone by CHRISTELLE FERREIRA. New orders to be put in by Hammad Suarez NP. 1650 orders received for Adenosine IVP. Dr. Rodriguez and Hammad Suarez NP at bedside. Charge nurse is at bedside. RT at bedside. 1700 Adenosine 6mg IVP given as ordered by CHRISTELLE FERREIRA. 1705 BP 164/ 146 P 123. Adenosine 12mg ordered IVP. 1703 Adenosine administered IVP by CHRISTELLE FERREIRA. BP 132/81 P 165 SpO2 96 and R 20. 1715 BP 144/[address] Tamayo at bedside now. Cardizem 20mg IVP ordered by Dr. Tamayo. HR down into mid 90's. Pt. resting comfortably w/ no distress noted. Reports feeling better. Physicians left bedside to enter further orders.
[2021-11-04 17:31] LABS: Thyroid Stim Hormone (TSH) 3.84 uIU/mL (0.358-3.74); Troponin-I HS 21 pg/mL (3.0-54.0)
--- NOTE | 2021-11-04 17:34 | PCM.CONS.C ---
Assessment & Plan Assessment/Plan (1) Atrial fibrillation with rapid ventricular response: PLAN: She has previous evidence of the above but I do not see any current evidence of atrial fibrillation. I would not anticoagulate her at this particular time. (2) Heart failure with preserved ejection fraction: PLAN: She Does have evidence of heart failure with preserved ejection fraction. I would recommend that we discontinue the amlodipine and put her on diltiazem. After her IV drip is complete we may switch her to a longer acting beta-skyler. (3) SVT (supraventricular tachycardia): PLAN: She did develop a narrow complex tachycardia with preserved ejection fraction. The above may have been precipitated by the adrenergic agents. At this time I would suggest that we bolused her with intravenous diltiazem and start her on a diltiazem drip at 10 mg per. Her inhalers have been appropriately substituted and we will continue to monitor her. Thank you for allowing me to participate in the care of your patient. Please don't hesitate to call if any issues arise. HPI Consult Data Date of Consult: 11/04/21 HPI Narrative HPI Narrative: SONA WILSON, is a 66 F who I was asked to see urgent really because patient had developed sudden narrow complex tachycardia which was unresponsive to 6 mg of adenosine and 12 mg of adenosine. Patient has a history of obstructive lung disease and had been receiving frequent inhalers. The patient was suddenly noted to develop the above rhythm. She does have previous echocardiogram performed within the last month demonstrating preserved ejection fraction of 55% and moderate pulmonary hypertension with pulmonary systolic pressures over 50 mmHg. Patient also has chronic pedal edema. While I was consulting on the patient she went back into a sinus tachycardia rhythm of approximately 114 bpm. She denied any chest pain. She does apparently have a previous history of paroxysmal atrial fibrillation but has not been anticoagulated on being on antiarrhythmic for the above. [facility] Medical History Acute cervical myofascial strain Acute on chronic respiratory failure with hypoxemia Amputated toe of left foot Anemia Asthma Atherosclerotic heart disease of [place] coronary artery without angina pectoris Atrial fibrillation CAD (coronary artery disease) Chronic heart failure with preserved ejection fraction (HFpEF) Chronic heel ulcer Chronic respiratory failure with hypoxia, on home oxygen therapy Chronic ulcer of great toe of left foot Closed head injury Congestive heart failure (CHF) COPD (chronic obstructive pulmonary disease) Decubitus ulcer of dorsum of foot, stage 2 Decubitus ulcer of left heel, stage 2 Decubitus ulcer of left heel, stage 3 Decubitus ulcer, heel, left, unstageable Depression Diabetes mellitus with diabetic polyneuropathy Diabetes type 2, controlled Diabetic foot ulcers Diverticulitis Essential hypertension Former smoker History of amputation of left great toe History of non-ST elevation myocardial infarction (NSTEMI) (02/24/17) Hyperlipidemia Hypothyroid Myocardial infarct Non-rheumatic tricuspid valve insufficiency Nondisplaced fracture of distal phalanx of right great toe, initial encounter for closed fracture Nonrheumatic mitral (valve) insufficiency Obesity Obstructive sleep apnea On home O2 Renal insufficiency Secondary pulmonary arterial hypertension Type 2 diabetes mellitus Home Medications bupropion HCl 300 mg 24 hr tablet, extended release 150 mg PO QHS depression 09/02/20 [History Last Taken 10/13/21] fluticasone furoate 100 mcg-vilanterol 25 mcg/dose inhalation powder (Breo Ellipta) 1 inh inhalation BID breathing 09/02/20 [History Last Taken 10/14/21] fluticasone propionate 50 mcg/actuation nasal spray,suspension 1 spray intranasal DAILY PRN Allergies 09/02/20 [History Last Taken 09/02/20] furosemide 80 mg tablet 80 mg PO DAILY water pill 09/02/20 [History Last Taken 10/14/21] levothyroxine 88 mcg tablet 88 mcg PO DAILY thyroid 09/02/20 [History Last Taken 10/14/21] lorazepam 1 mg tablet 0.5 mg PO QHS anxiety 09/02/20 [History Last Taken 10/13/21] montelukast 10 mg tablet 10 mg PO DAILY allergies 09/02/20 [History Last Taken 10/14/21] trazodone 100 mg tablet 50 mg PO QHS sleep 09/02/20 [History Last Taken 10/13/21] aspirin 81 mg tablet,delayed release (Adult Aspirin Regimen) 81 mg PO DAILY heart 05/17/21 [History Last Taken 10/14/21 09:30] amlodipine 10 mg tablet 10 mg PO DAILY bp 08/25/21 [History Last Taken 10/14/21 09:30] gabapentin 100 mg capsule (Neurontin) 100 mg PO TID nerve pain 08/25/21 [History Last Taken 10/14/21] insulin detemir U-100 100 unit/mL (3 mL) subcutaneous pen 30 unit subcut QHS blood sugar 09/02/21 [History Last Taken 10/13/21] insulin lispro 100 unit/mL subcutaneous pen 7 unit subcut ACHS blood sugar 09/02/21 [History Last Taken 10/14/21] ipratropium 0.5 mg-albuterol 3 mg (2.5 mg base)/3 mL nebulization soln 3 ml inhalation BID PRN sob 09/02/21 [History Last Taken Unknown] paroxetine HCl 30 mg tablet 40 mg PO QHS mental health 09/02/21 [History Last Taken 10/13/21] atorvastatin 80 mg tablet 80 mg PO QHS Cholestrol 10/22/21 [History Last Taken Unknown] carvedilol 6.25 mg tablet 6.25 mg PO BID BP 10/22/21 [History Last Taken Unknown] pantoprazole 40 mg tablet,delayed release 40 mg PO BID GERD 10/22/21 [History Last Taken Unknown] acetaminophen 500 mg tablet 1,000 mg PO Q8H PRN Pain 11/03/21 [History Last Taken Unknown] arginine 7 gram-glutamine 7 gram-calcium HMB 1.5 gram oral powder pack (Say) 1 ea PO BID 11/03/21 [History Last Taken Unknown] bisacodyl 10 mg rectal suppository 10 mg OK DAILY PRN Constipation 11/03/21 [History Last Taken Unknown] ceftriaxone 1 gram intravenous piggyback 1 g IV Q12H 11/03/21 [History Last Taken Unknown] collagenase clostridium histo. 250 unit/gram topical ointment (Santyl) 1 applic topical DAILY 11/03/21 [History Last Taken Unknown] doxycycline monohydrate 100 mg tablet 100 mg PO BID 11/03/21 [History Last Taken Unknown] menthol 0.44 %-zinc oxide 20.6 % topical ointment (Calmoseptine) 1 applic topical BID 11/03/21 [History Last Taken Unknown] methylprednisolone 4 mg tablet 0 mg PO UD steriod 11/03/21 [History Last Taken Unknown] nystatin 100,000 unit/gram topical powder 1 applic topical BID 11/03/21 [History Last Taken Unknown] oxycodone 5 mg tablet 5 mg PO Q4H PRN Pain 11/03/21 [History Last Taken Unknown] potassium chloride 20 mEq tablet,extended release 20 meq PO BID 11/03/21 [History Last Taken Unknown] sennosides 8.6 mg tablet (senna) 17.2 mg PO BID 11/03/21 [History Last Taken Unknown] Allergy/AdvReac Type Severity Reaction Status Date / Time Sulfa (Sulfonamide Allergy Anaphylaxis Verified 11/03/21 08:07 Antibiotics) sulfur dioxide Allergy Anaphylaxis Verified 11/03/21 08:07 Family History Grandmother Diabetes Mother Heart disease Surgical History H/O right heart catheterization History of cataract surgery History of coronary artery stent placement (02/24/17) Tubal ligation status Social History household members: none housing: other details: [facility]. Smoking Status: Former smoker how long ago did patient quit smokin alcohol intake: former year quit: 1999 substance use type: does not use caffeine: Yes Type: carbonated beverages and tea ROS Constitutional Constitutional: Denies fever(s) or weight loss Eyes Eyes: Reports systems reviewed and no addt'l complaints, except as documented ENT HEENT: Reports systems reviewed and no addt'l complaints, except as documented Cardiovascular Cardiovascular: Denies chest pain at rest, chest pain with activity, dyspnea at rest, dyspnea on exertion, edema, palpitations or paroxysmal nocturnal dyspnea Respiratory/Chest Respiratory/Chest: Denies dyspnea on exertion, productive cough, shortness of breath at rest or shortness of breath with exertion Gastrointestinal Gastrointestinal: Denies change in bowel habits, nausea, vomiting or weight changes Genitourinary Genitourinary: Denies difficulty urinating Musculoskeletal Musculoskeletal: Denies joint stiffness or muscle weakness Integumentary Integumentary: Denies lesions Neurologic Neurologic: Denies dizziness or syncope Psychiatric Psychiatric: Denies anxiety Endocrine Endocrinology: Denies excessive sweating or fatigue Hematologic/Lymphatic Hematologic/Lymphatic: Denies anemia Allergic/Immunologic Allergic/Immunologic: Denies seasonal rhinorrhea Physical Exam Const alert, oriented x3 and no apparent distress General Appearance: cooperative and comfortable HEENT normocephalic Eyes General Eye: normal appearance of both eyes Neck General: normal visual inspection Lymph Lymphatic: no lymphadenopathy noted and no lymphedema noted Resp normal respiratory effort Cardio regular rate and regular rhythm Extremity normal capillary refill and no calf tenderness General Extremity: edema Skin no rashes or lesions noted, skin turgor normal and no jaundice Skin Narrative: Left foot: Mild nonpitting postsurgical edema to the left foot. Sutures intact at left hallux amputation stump site. No erythema, no purulent drainage, no malodor, no palpable fluctuance, or other localized signs of infection. Wound Narrative: Left foot: Left heel stage II decubitus ulceration noted to the posterior aspect of the heel. Site demonstrates stable eschar covering with no localized erythema,no purulent drainage, no malodor, no palpable fluctuance, or other localized signs of infection. Neuro oriented x3 and moves all extremities Risk Stratification Risk Stratification Applicable: No Objective Data Vital Signs: Vital Signs Temp Pulse Resp BP Pulse Ox O2 Del Method O2 Flow Rate 97.0 F L 124 H 28 H 126/66 H 94 Nasal Cannula 10 11/04/21 16:36 11/04/21 17:22 11/04/21 16:36 11/04/21 17:22 11/04/21 16:36 11/04/21 16:36 11/04/21 16:36 FiO2 45 11/04/21 13:30 Oxygen Flow Rate (L/min) 10 Oxygen Delivery Method Nasal Cannula Weight: 240 lb 11.916 oz Body Mass Index (BMI) 40.0 Intake & Output: Intake and Output for Last 24 Hours 11/02/21 11/03/21 11/04/21 23:59 23:59 23:59 Intake Total 1200 / 1600 1095 / 1095 Output Total 500 / 850 1075 / 1075 Balance 700 / 750 / 20 Lab / Micro Data Result Diagrams: 11/04/21 16:56 11/04/21 05:50 Labs: Laboratory Results - last 24 hr 11/03/21 13:35: MRSA (PCR) Negative 11/03/21 16:28: POC Glucose 278 H 11/03/21 22:41: POC Glucose 201 H 11/04/21 05:50: WBC 11.7 H, RBC 2.61 L, Hgb 7.3 L, Hct 24.3 L, MCV 93.1, MCH 28.0, MCHC 30.0 L, RDW Std Deviation 55.3 H, RDW Coeff of Magen 16.2 H, Plt Count 126 L, MPV 10.9, Immature Gran % (Auto) 0.500, Neut % (Auto) 88.6 H, Lymph % (Auto) 3.3 L, [place] % (Auto) 4.8, Eos % (Auto) 2.5, Baso % (Auto) 0.3, Absolute Neuts (auto) 10.4 H, Absolute Lymphs (auto) 0.39 L, Nucleated RBC % 0, Platelet Estimate SLT DEC, Anisocytosis 1+ 11/04/21 05:50: Sodium 140, Potassium 3.7, Chloride 100, Carbon Dioxide 32.0, Anion Gap 8, BUN 41 H, Creatinine 1.39 H, Estim Creat Clear Calc 36.31, Est GFR (MDRD) Af Amer 49 L, Est GFR (MDRD) Non-Af 40 L, BUN/Creatinine Ratio 29.5 H, Glucose 208 H, Calcium 8.9, Phosphorus 2.8, Magnesium 2.0 11/04/21 06:35: POC Glucose 207 H 11/04/21 11:41: POC Glucose 198 H 11/04/21 16:50: Troponin I High Sens 21, TSH 3.84 H 11/04/21 16:56: Hgb 7.9 L, Hct 25.6 L Cardiology Labs/Tests 11/04/21 05:50: WBC 11.7 H, RBC 2.61 L, Hgb 7.3 L, Hct 24.3 L, MCV 93.1, MCH 28.0, MCHC 30.0 L, Plt Count 126 L, MPV 10.9, Immature Gran % (Auto) 0.500, Neut % (Auto) 88.6 H, Lymph % (Auto) 3.3 L, [place] % (Auto) 4.8, Eos % (Auto) 2.5, Baso % (Auto) 0.3, Absolute Neuts (auto) 10.4 H, Nucleated RBC % 0 11/04/21 05:50: Sodium 140, Potassium 3.7, Chloride 100, Carbon Dioxide 32.0, Anion Gap 8, BUN 41 H, Creatinine 1.39 H, Est GFR (MDRD) Af Amer 49 L, Est GFR (MDRD) Non-Af 40 L, BUN/Creatinine Ratio 29.5 H, Glucose 208 H, Calcium 8.9, Phosphorus 2.8, Magnesium 2.0 11/04/21 16:56: Hgb 7.9 L, Hct 25.6 L Rhythm: EKG: ECHO: Stress Test: Cardiac Cath: PCI: CT Surgery: Holter monitor: EPS: PPM: CXR: Chest CT Scan:
[2021-11-04 17:46] LABS: Bedside Glucose 229 mg/dL (74-106)
[2021-11-04] MEDS: Ipratropium 0.5 MG/2.5 ML SOLUTION INHALATION (19:20)
[2021-11-04] MEDS: buPROPion (XL) 150 MG TABLET.XL PO (21:27)
[2021-11-04] MEDS: traZODone 50 MG Tablet PO (21:27)
[2021-11-04] MEDS: Atorvastatin Calcium 80 MG Tablet PO (21:27)
[2021-11-04] MEDS: Paroxetine 20 MG Tablet 40 MG PO (21:27)
[2021-11-04] MEDS: Metoprolol(XL)Succ 50 MG Tablet PO (21:27)
[2021-11-04 22:15] LABS: Bedside Glucose 269 mg/dL (74-106)
--- NOTE | 2021-11-04 22:21 | NURSING ---
Called pharmacy to check compatibility of IV cardizem and IV cefepime, pharmacist is unsure/ does not have that information. Pt has one IV access and is awaiting PICC line placement. Notified Dr. Aldrich.
[2021-11-05] VITALS (32 sets, daily range): BP systolic 90–128; BP diastolic 49–87; PULSE 66–80; RESP 12–24; TEMP 36.3–37.1; O2SAT 91–99
[2021-11-05] MEDS: 0.9 % NaCl (Sterile) Posiflush 10 mL IV ×6 (00:19→23:30)
--- NOTE | 2021-11-05 02:30 | NURSING ---
Assumed care of pt at this time d/t staffing needs.
[2021-11-05] MEDS: Levothyroxine 88 MCG Tablet PO (05:28)
[2021-11-05] MEDS: Acetaminophen 325 MG Tablet 650 MG PO (05:33)
[2021-11-05] MEDS: oxyCODONE 5 MG Tablet PO (05:34)
[2021-11-05 06:06] LABS: Absolute Lymphocyte Count 0.34 X10^3/uL (0.83-4.51); Absolute Neutrophil Count 7.9 X10^3/uL (2.0-7.7); Basophil# 0.01 X10^3/uL; Basophil% 0.1 % (0-1); Eosinophil# 0.01 X10^3/uL; Eosinophils% 0.1 % (0-5); Hematocrit 23.8 % (37-47); Hemoglobin 7.2 g/dL (12.0-15.0); Lymphocyte # 0.34 X10^3/ul (0.83-4.51); Mean Corp Hgb Conc 30.3 g/dL (32-36); Mean Corpuscular Hgb 28.2 pg (27.0-32.0); Mean Corpuscular Volume 93.3 fL (81-99); Mean Platelet Vol. 11.8 fl (6.2-12.0); Monocyte# 0.15 X10^3/uL; Monocyte% 1.8 % (0-10); NRBC Flagged by Analyzer 0 % (0-5); Neutrophil # 7.87 X10^3/uL (2.7-7.7); Neutrophil % 93.3 % (47-70); POSITIVE DIFFERENTIAL YES; Platelet Count 114 K/mm3 (150-450); RBC Distribution Width CV 15.9 % (11.6-14.6); RBC Distribution Width SD 54.2 fl (35.1-43.9); Red Blood Count 2.55 M/mm3 (4.2-5.4); White Blood Count 8.4 K/mm3 (4.4-11.0)
[2021-11-05] MEDS: Ipratropium 0.5 MG/2.5 ML SOLUTION INHALATION ×4 (06:51→19:42)
[2021-11-05 06:52] LABS: Anion Gap 8 (5-15); BUN 42 mg/dL (7-18); BUN/Creat Ratio 25.8 RATIO (10-20); Calcium,Total 8.9 mg/dL (8.5-10.1); Chloride 99 mmol/L (98-107); Creatinine, Serum 1.63 mg/dL (0.55-1.02); EST Glomerular Filtration Rate 34 mL/min (>60); Est Glom Filt Rate - Afr Amer 41 mL/min (>60); Estimated Creatinine Clearance 30.96 ml/min; Glucose 362 mg/dL (74-106); Potassium 4.2 mmol/L (3.5-5.1); Sodium Level 138 mmol/L (136-145)
[2021-11-05] MEDS: Insulin Lispro 100 UNIT/ML INSULN.PEN SC ×4 (06:52→21:31)
[2021-11-05 06:53] LABS: Differential Indicated SCAN CRITERIA MET
[2021-11-05 07:06] LABS: Differential Comment SCANNED
[2021-11-05 07:10] LABS: Bedside Glucose 355 mg/dL (74-106)
[2021-11-05] MEDS: Gabapentin 100 MG Capsule PO ×3 (07:59→16:51)
[2021-11-05] MEDS: LORazepam 0.5 MG Tablet PO ×2 (08:00→23:28)
--- NOTE | 2021-11-05 08:09 | PCM.PN.INT ---
Assessment & Plan Assessment/Plan (1) Acute and chronic respiratory failure with hypoxia: PLAN: Plan RECOMMENDATIONS: 1. Wean supplemental oxygen for saturations at or above 90%. 2. Continue current broad-spectrum antimicrobials. 3. Continue scheduled bronchodilators and IV steroids at current dosing. 4. Continue diuretics as tolerated by hemodynamics and renal function. 5. Encourage BiPAP utilization with naps and nightly. 6. Encourage incentive spirometer use and mobilize patient as tolerated. 7. Ultimately, the patient will require outpatient pulmonary follow-up for optimization. IMPRESSIONS: 1. Acute on chronic hypoxemic respiratory failure Most likely multifactorial in etiology with possible obstructive lung disease, pulmonary hypertension and heart failure with preserved ejection fraction contributing. CTA chest showed no evidence for pulmonary embolism but revealed findings concerning for bilateral pneumonia. Accordingly, the patient has been maintained on broad-spectrum antimicrobials, which I would recommend be continued. Continue scheduled bronchodilators and IV steroids to the patient's current medication regimen. Use of BiPAP with sleep will help in her recovery. Continue to wean supplemental oxygen for saturations greater than 90%. Encourage incentive spirometer use and mobilize patient as tolerated. 2. Pulmonary hypertension/questionable sleep apnea Unfortunately, patient did not do outpatient testing. Empiric BiPAP has been initiated. Patient would benefit from a sleep study soon after discharge if possible. 3. Chronic anemia/recent Proteus bacteremia/paroxysmal atrial fibrillation/hypothyroidism/morbid obesity/depression/anxiety Complicates care, management, recovery and prognosis. Continue home medications as indicated. Patient has had some decrease in hemoglobin without reported bleeding. No transfusion at this time. This note was generated with [employer] dictation software. It may contain incorrect words, spelling, and punctuation that were not noted in checking the note before signing. Subjective Subjective Patient did okay overnight. Patient was able to wear BiPAP with sleep and tolerated it well. Patient is back on nasal cannula this morning. Patient continues to report shortness of breath at rest, but feels subjectively improved compared to yesterday. Patient remains on Cardizem drip and heart rate has been controlled. Objective Data Objective Data Vital Signs: Vital Signs Temp Pulse Resp BP Pulse Ox O2 Del Method O2 Flow Rate 37.1 C 77 20 H 104/64 97 Nasal Cannula 9 11/05/21 08:03 11/05/21 08:03 11/05/21 08:03 11/05/21 08:03 11/05/21 08:03 11/05/21 08:03 11/05/21 08:03 FiO2 50 11/05/21 07:00 Oxygen Flow Rate (L/min) 9 Oxygen Delivery Method Nasal Cannula Weight: 109.2 kg Body Mass Index (BMI) 40.0 Intake & Output: Intake and Output for Last 24 Hours 11/03/21 11/04/21 11/05/21 23:59 23:59 23:59 Intake Total 1200 / 1600 1168.33 / 1183.33 431.25 / 431.25 Output Total 500 / 850 1375 / 1375 400 / 400 Balance 700 / 750 -206.67 / -191.67 31.25 / 31.25 Lab / Micro Data Attestation: I reviewed the patient's lab results. Result Diagrams: 11/05/21 06:00 11/05/21 06:00 Labs: Laboratory Results - last 24 hr 11/04/21 11:41: POC Glucose 198 H 11/04/21 16:31: POC Glucose 229 H 11/04/21 16:50: Troponin I High Sens 21, TSH 3.84 H 11/04/21 16:56: Hgb 7.9 L, Hct 25.6 L 11/04/21 21:36: POC Glucose 269 H 11/05/21 06:00: WBC 8.4, RBC 2.55 L, Hgb 7.2 L, Hct 23.8 L, MCV 93.3, MCH 28.2, MCHC 30.3 L, RDW Std Deviation 54.2 H, RDW Coeff of Magen 15.9 H, Plt Count 114 L, MPV 11.8, Immature Gran % (Auto) 0.700, Neut % (Auto) 93.3 H, Lymph % (Auto) 4.0 L, [place] % (Auto) 1.8, Eos % (Auto) 0.1, Baso % (Auto) 0.1, Absolute Neuts (auto) 7.9 H, Absolute Lymphs (auto) 0.34 L, Nucleated RBC % 0, Differential Comment SCANNED 11/05/21 06:00: Sodium 138, Potassium 4.2, Chloride 99, Carbon Dioxide 31.0, Anion Gap 8, BUN 42 H, Creatinine 1.63 H, Estim Creat Clear Calc 30.96, Est GFR (MDRD) Af Amer 41 L, Est GFR (MDRD) Non-Af 34 L, BUN/Creatinine Ratio 25.8 H, Glucose 362 H, Calcium 8.9 11/05/21 06:50: POC Glucose 355 H Micro: Microbiology 11/03/21 09:15 Blood Culture (Wb) - Anticubital Right Blood Culture - Preliminary No growth in 48 hours. 11/03/21 08:45 Blood Culture (Wb) - Anticubital Left Blood Culture - Preliminary No growth in 48 hours. 11/03/21 10:28 Mucosa - Nose Respiratory Panel (PCR) - Final 11/03/21 10:45 Urine, Clean Catch Streptococcus pneumoniae Antigen (M - Final 11/03/21 10:45 Urine, Clean Catch Legionella Antigen - Final 11/03/21 08:45 Nasal Secretion SARS-CoV-2 Antigen (Rapid) - Final Physical Exam Const alert and oriented x3 Constitutional Narrative: Mild conversational dyspnea Nutritional Appearance: obese HEENT normocephalic and head/scalp atraumatic Eyes PERRL, EOMs intact bilaterally and conjunctivae normal Neck supple General: trachea midline Chest Chest: abnormal inspection of the chest increased A-P diameter Resp no use of accessory muscles Effort and Inspection: Negative for actively coughing Auscultation: diminished lung sounds; Negative for rales, rhonchi or wheezes Cardio regular rate, regular rhythm, S1 normal heart sound, S2 normal heart sound, no rub and no gallops Heart Sounds: murmur systolic II/ soft early right sternal border GI normal to inspection, nondistended, normoactive bowel sounds Extremity General Extremity: edema; Negative for clubbing Skin General Skin Exam: venous stasis and dermatitis Neuro CN's II-XII intact bilaterally, moves all extremities and no focal motor deficits Psych cooperative and affect normal Charges/Coding Visit Charges Inpatient E&M: 29243 Subs Hosp L3
[2021-11-05] MEDS: dilTIAZem CD 120 MG Capsule PO (08:25)
[2021-11-05] MEDS: Pantoprazole Sodium 40 MG Tablet PO ×2 (09:17→21:36)
[2021-11-05] MEDS: Enoxaparin 40 MG/0.4 ML Syringe SC ×2 (09:21→21:34)
[2021-11-05] MEDS: Metoprolol(XL)Succ 50 MG Tablet PO ×2 (09:21→21:35)
--- NOTE | 2021-11-05 10:20 | PN.HOSP_ITS ---
Documented by User: Laura Suarez NP, QUEBRACHO TANNER-C 11/05/21 10:35 Subjective Subjective Patient seen and examined. Reports improvement in breathing. Heart rate significantly improved. Denies other symptoms or complaints. Objective Data Objective Data Vital Signs: Vital Signs Temp Pulse Resp BP Pulse Ox O2 Del Method O2 Flow Rate 98.7 F 75 20 H 118/68 97 Nasal Cannula 9 11/05/21 08:03 11/05/21 09:21 11/05/21 08:15 11/05/21 09:21 11/05/21 08:03 11/05/21 08:08 11/05/21 08:08 FiO2 50 11/05/21 07:00 Oxygen Flow Rate (L/min) 9 Oxygen Delivery Method Nasal Cannula Weight: 240 lb 11.916 oz Body Mass Index (BMI) 40.0 Intake & Output: Intake and Output for Last 24 Hours 11/03/21 11/04/21 11/05/21 23:59 23:59 23:59 Intake Total 1200 / 1600 1168.33 / 1183.33 538.83 / 538.83 Output Total 500 / 850 1375 / 1375 400 / 400 Balance 700 / 750 -206.67 / -191.67 138.83 / 138.83 Lab / Micro Data Result Diagrams: 11/05/21 06:00 11/05/21 06:00 Labs: Laboratory Results - last 24 hr 11/04/21 11:41: POC Glucose 198 H 11/04/21 16:31: POC Glucose 229 H 11/04/21 16:50: Troponin I High Sens 21, TSH 3.84 H 11/04/21 16:56: Hgb 7.9 L, Hct 25.6 L 11/04/21 21:36: POC Glucose 269 H 11/05/21 06:00: WBC 8.4, RBC 2.55 L, Hgb 7.2 L, Hct 23.8 L, MCV 93.3, MCH 28.2, MCHC 30.3 L, RDW Std Deviation 54.2 H, RDW Coeff of Magen 15.9 H, Plt Count 114 L, MPV 11.8, Immature Gran % (Auto) 0.700, Neut % (Auto) 93.3 H, Lymph % (Auto) 4.0 L, [place] % (Auto) 1.8, Eos % (Auto) 0.1, Baso % (Auto) 0.1, Absolute Neuts (auto) 7.9 H, Absolute Lymphs (auto) 0.34 L, Nucleated RBC % 0, Differential Comment SCANNED 11/05/21 06:00: Sodium 138, Potassium 4.2, Chloride 99, Carbon Dioxide 31.0, Anion Gap 8, BUN 42 H, Creatinine 1.63 H, Estim Creat Clear Calc 30.96, Est GFR (MDRD) Af Amer 41 L, Est GFR (MDRD) Non-Af 34 L, BUN/Creatinine Ratio 25.8 H, Glucose 362 H, Calcium 8.9 11/05/21 06:50: POC Glucose 355 H Micro: Microbiology 11/03/21 09:15 Blood Culture (Wb) - Anticubital Right Blood Culture - Preliminary No growth in 48 hours. 11/03/21 08:45 Blood Culture (Wb) - Anticubital Left Blood Culture - Preliminary No growth in 48 hours. 11/03/21 10:28 Mucosa - Nose Respiratory Panel (PCR) - Final 11/03/21 10:45 Urine, Clean Catch Streptococcus pneumoniae Antigen (M - Final 11/03/21 10:45 Urine, Clean Catch Legionella Antigen - Final 11/03/21 08:45 Nasal Secretion SARS-CoV-2 Antigen (Rapid) - Final Physical Exam Const alert, oriented x3 and no apparent distress HEENT normocephalic and moist oral mucous membranes Eyes PERRL, EOMs intact bilaterally and conjunctivae normal Neck no lymphadenopathy Resp clear to auscultation bilaterally Auscultation: diminished lung sounds Cardio regular rate, regular rhythm and no murmurs Peripheral Pulses: pulses 2+ throughout GI normal to inspection, nondistended, normoactive bowel sounds, non-tender and non-distended Extremity normal to inspection Skin no rashes or lesions noted Skin Narrative: Recent left hallux amputation, dressing intact. Lesions: no lesions Rashes: no rashes Trauma: no lacerations or abrasions Neuro CN's II-XII intact bilaterally, no focal motor deficits, no sensory deficits noted and deep tendon reflexes 2+ bilaterally Psych mental status grossly normal and affect normal Assessment & Plan Assessment/Plan (1) Acute and chronic respiratory failure with hypoxia: PLAN: Plan 1.? Acute on chronic hypoxic respiratory failure secondary to acute on chronic heart failure with preserved ejection fraction and hospital-acquired pneumonia- CTA with diffuse bilateral pulmonary infiltrates and small bilateral pleural effusions.? Continue supplemental oxygen to maintain O2 at above 90%. Pulmonary medicine consulted. IV steroids added for suspected obstructive lung disease. Patient will need outpatient follow up with pulmonary medicine for PFTs. Continue BiPAP as tolerated. Remains on high flow oxygen. 2.? Hospital-acquired pneumonia-IV azithromycin, IV vancomycin and IV cefepime.? Scheduled ipratropium.? Albuterol/DuoNeb aerosols discontinued due to SVT. Send sputum for culture.? Blood cultures with no growth.? Urine for strep and Legionella negative.? Respiratory panel negative. 3.? Acute on chronic heart failure with preserved ejection fraction-recent echocardiogram with EF 55%, moderate mitral valve insufficiency, moderate tricuspid valve insufficiency.? IV Lasix.? Strict I&O.? Daily weight.? 4.? Chronic anemia with recent GI bleed-recent Colonoscopy without evidence of bleeding, poor prep.? EGD with esophageal plaques consistent with candidiasis, nonbleeding gastric ulcer which was biopsied.? Continue PPI.? Outpatient follow- up with GI.? Trend CBC. Transfuse for hgb less than 7. 5.?Recent Proteus bacteremia secondary to left great toe neuropathic infected wound-Underwent left hallux amputation 10/21/2021.?Wound RN consult. Podiatry following. 6.? Suspected recent new onset atrial fibrillation-Noted during recent admission.? Did not initiate anticoagulation secondary to GI bleed.? Continue rate control regimen.? Outpatient follow-up. 7. Paroxysmal SVT-previously received adenosine 6 mg followed by 12 mg. Subsequently placed on Cardizem drip. Drip discontinued and transitioned to Cardizem 120 mg daily. Heart rate stable. 8. Type 2 diabetes [id number] with sliding scale insulin.? Continue home insulin regimen. 9. Hypothyroidism-continue Synthroid regimen. 10. CAD-continue medical management. 11. Hyperlipidemia-continue statin. 12. Depression/anxiety-on bupropion, Ativan, paroxetine. 13.? Chronic COPD-as needed albuterol aerosol. 14.? Chronic kidney disease stage IIIb-appears at baseline DVT prophylaxis- Lovenox sc This patient was seen by DEVON Woodward under the supervision of Dr. Roberts. Documented by User: Dr. Augie Roberts MD 11/05/21 11:15 Objective Data Lab / Micro Data Result Diagrams: 11/05/21 06:00 11/05/21 06:00 Assessment & Plan Assessment/Plan (1) Acute and chronic respiratory failure with hypoxia: Addt'l Comments This patient was seen in conjunction with DEVON Woodward .? I have independently interviewed and examined the patient and reviewed pertinent historical, laboratory, and other data.? Please refer to DEVON Woodward? note for details of this patient's presentation, findings, and recommendations.? I have reviewed? DEVON Woodward ? note and concur? with documented findings. In brief, patient is a 66-year-old lady who recently underwent left hallux amputation as a result of neuropathic infected wound was transferred to transitional care unit to continue with her recuperation.? Patient did develop progressive shortness of breath over 2-day.? Was eventually sent to the emergency department where she was placed on noninvasive ventilation BiPAP.? Admitted to a monitored bed as a case of acute hypoxic respiratory failure due to combination of suspected healthcare associated pneumonia and CHF 11/04/2021; patient seen still requiring significant amount of oxygen.? Decision was made to consult pulmonary medicine.? Patient responded well to diuresis as evidenced by increasing creatinine.? Her diuretic dose subsequently adjusted 11/05/2021; patient went into A. fib with RVR the day prior necessitating initiation of Cardizem drip. Consult was also placed to cardiology. Patient was also seen in consultation by pulmonary medicine systemic steroid added to patient's therapy. Patient was placed on BiPAP during the night which she tole rated. Physical Examination: GENERAL: Dyspneic at rest HEENT: Atraumatic; EYES; Anicteric, Normal Conjunctiva NECK; supple, normal thyroid, RESPIRATORY: Diminished to auscultation CARDIOVASCULAR:? Regular S1 S2, GI:? soft, normoactive bowel sounds, : No Renal angle tenderness; EXTREMITIES: Trace bipedal edema, left foot in surgical dressing MUSCULOSKELETAL:? no muscle wasting NEURO:? Awake;? no lateralizing signs. SKIN:? No Rash PSYCH; Flat? affect Assessment: 1.? Acute hypoxic respiratory failure 2.? Chronic hypoxic respiratory failure 3.? Pneumonia with suspected gram-negative organisms 4.? Acute on chronic congestive heart failure with preserved ejection fraction?EF 55% 5.? Anemia of chronic disorder 6.? 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 Diabetes 8.? Hypothyroidism 9.? Paroxysmal A. fib 10.? Class III obesity with BMI of 40.1 11.? Dyslipidemia 12.? Depression anxiety 13.? Chronic kidney disease stage IIIb 14.? Recent diagnosis of esophageal candidiasis 15.? COPD 16.? Obstructive sleep apnea 17.? DVT prophylaxis Recommendations: 1.? I have discussed the results of my overview and impressions with the patient 2.? Options for management were reviewed Total time spent by myself and the advanced practice practitioner evaluating patient, reviewing labs, subsequent management decisions, discussion with patient as well as other providers 45minutes ( 25 of which was spent by myself) Charges/Coding Visit Charges Inpatient E&M: 36226 Subs Hosp L3
--- NOTE | 2021-11-05 10:51 | PCM.PN.CARD ---
Subjective Subjective Patient seen and evaluated. Appears to be doing well. No complaints. Has been maintaining sinus rhythm. Objective Data Vital Signs: Vital Signs Temp Pulse Resp BP Pulse Ox O2 Del Method O2 Flow Rate 98.7 F 75 20 H 118/68 97 Nasal Cannula 9 11/05/21 08:03 11/05/21 09:21 11/05/21 08:15 11/05/21 09:21 11/05/21 08:03 11/05/21 08:08 11/05/21 08:08 FiO2 50 11/05/21 07:00 Oxygen Flow Rate (L/min) 9 Oxygen Delivery Method Nasal Cannula Weight: 240 lb 11.916 oz Body Mass Index (BMI) 40.0 Intake & Output: Intake and Output for Last 24 Hours 11/03/21 11/04/21 11/05/21 23:59 23:59 23:59 Intake Total 1200 / 1600 1168.33 / 1183.33 538.83 / 538.83 Output Total 500 / 850 1375 / 1375 400 / 400 Balance 700 / 750 -206.67 / -191.67 138.83 / 138.83 Lab / Micro Data Result Diagrams: 11/05/21 06:00 11/05/21 06:00 Labs: Laboratory Results - last 24 hr 11/04/21 11:41: POC Glucose 198 H 11/04/21 16:31: POC Glucose 229 H 11/04/21 16:50: Troponin I High Sens 21, TSH 3.84 H 11/04/21 16:56: Hgb 7.9 L, Hct 25.6 L 11/04/21 21:36: POC Glucose 269 H 11/05/21 06:00: WBC 8.4, RBC 2.55 L, Hgb 7.2 L, Hct 23.8 L, MCV 93.3, MCH 28.2, MCHC 30.3 L, RDW Std Deviation 54.2 H, RDW Coeff of Magen 15.9 H, Plt Count 114 L, MPV 11.8, Immature Gran % (Auto) 0.700, Neut % (Auto) 93.3 H, Lymph % (Auto) 4.0 L, [place] % (Auto) 1.8, Eos % (Auto) 0.1, Baso % (Auto) 0.1, Absolute Neuts (auto) 7.9 H, Absolute Lymphs (auto) 0.34 L, Nucleated RBC % 0, Differential Comment SCANNED 11/05/21 06:00: Sodium 138, Potassium 4.2, Chloride 99, Carbon Dioxide 31.0, Anion Gap 8, BUN 42 H, Creatinine 1.63 H, Estim Creat Clear Calc 30.96, Est GFR (MDRD) Af Amer 41 L, Est GFR (MDRD) Non-Af 34 L, BUN/Creatinine Ratio 25.8 H, Glucose 362 H, Calcium 8.9 11/05/21 06:50: POC Glucose 355 H Micro: Microbiology 11/03/21 09:15 Blood Culture (Wb) - Anticubital Right Blood Culture - Preliminary No growth in 48 hours. 11/03/21 08:45 Blood Culture (Wb) - Anticubital Left Blood Culture - Preliminary No growth in 48 hours. Cardiology Labs/Tests 11/04/21 16:56: Hgb 7.9 L, Hct 25.6 L 11/05/21 06:00: WBC 8.4, RBC 2.55 L, Hgb 7.2 L, Hct 23.8 L, MCV 93.3, MCH 28.2, MCHC 30.3 L, Plt Count 114 L, MPV 11.8, Immature Gran % (Auto) 0.700, Neut % (Auto) 93.3 H, Lymph % (Auto) 4.0 L, [place] % (Auto) 1.8, Eos % (Auto) 0.1, Baso % (Auto) 0.1, Absolute Neuts (auto) 7.9 H, Nucleated RBC % 0 11/05/21 06:00: Sodium 138, Potassium 4.2, Chloride 99, Carbon Dioxide 31.0, Anion Gap 8, BUN 42 H, Creatinine 1.63 H, Est GFR (MDRD) Af Amer 41 L, Est GFR (MDRD) Non-Af 34 L, BUN/Creatinine Ratio 25.8 H, Glucose 362 H, Calcium 8.9 Rhythm: EKG: ECHO: Stress Test: Cardiac Cath: PCI: CT Surgery: Holter monitor: EPS: PPM: CXR: Chest CT Scan: Physical Exam Const alert, oriented x3 and no apparent distress General Appearance: cooperative HEENT hearing grossly normal bilaterally Head and Scalp: atraumatic Eyes EOMs intact bilaterally Neck General: normal visual inspection Chest inspection of chest normal and palpation of chest normal Resp normal respiratory effort Auscultation: clear to auscultation bilaterally Cardio regular rate, regular rhythm, S1 normal heart sound and S2 normal heart sound Jugular Venous Distention: JVD GI normal to inspection, nondistended, normoactive bowel sounds Extremity normal capillary refill and no pedal edema Peripheral Pulses: Yes pulses 2+ throughout and femoral pulses present Skin no rashes or lesions noted Neuro oriented x3 and CN's II-XII intact bilaterally Psych Appearance: grossly normal and appropriate Assessment & Plan Assessment/Plan (1) Atrial fibrillation with rapid ventricular response: PLAN: She has previous evidence of the above but I do not see any current evidence of atrial fibrillation. I would not anticoagulate her at this particular time. (2) Heart failure with preserved ejection fraction: PLAN: She Does have evidence of heart failure with preserved ejection fraction. I would recommend that we discontinue the amlodipine and put her on diltiazem. Ideally she should be switched to a beta-skyler but she seems to be tolerating the calcium channel skyler for now and I will continue her with diltiazem 120 mg daily. (3) SVT (supraventricular tachycardia): PLAN: She did develop a narrow complex tachycardia with preserved ejection fraction. The above may have been precipitated by the adrenergic agents. She appears to be maintaining sinus rhythm on the oral calcium channel skyler and for now I will continue that with no changes. Thank you for allowing me to participate in the care of your patient. Please don't hesitate to call if any issues arise.
[2021-11-05] MEDS: Collagenase 30gm Tube 1 APPLIC TOPICAL (11:41)
[2021-11-05] MEDS: Furosemide 20 MG Tablet 60 MG PO ×2 (11:42→17:15)
[2021-11-05 11:55] LABS: Bedside Glucose 383 mg/dL (74-106)
--- NOTE | 2021-11-05 12:03 | CM.ED ---
GREG Note GREG spoke to Kenneth in TCU. He said that the patient is not listed as a possible admission this weekend. Per weekend report patient is waiting on precert and will not be discharged. Christianne BLACK
[2021-11-05] MEDS: Ondansetron 4 MG/2 ML Vial IV (15:05)
[2021-11-05] MEDS: Glucerna Shake 120 ML LIQUID PO (16:51)
[2021-11-05 17:00] LABS: Bedside Glucose 311 mg/dL (74-106)
[2021-11-05] MEDS: Paroxetine 20 MG Tablet 40 MG PO (21:35)
[2021-11-05] MEDS: buPROPion (XL) 150 MG TABLET.XL PO (21:36)
[2021-11-05] MEDS: traZODone 50 MG Tablet PO (21:36)
[2021-11-05] MEDS: Atorvastatin Calcium 80 MG Tablet PO (21:36)
[2021-11-05 23:56] LABS: Bedside Glucose 344 mg/dL (74-106)
[2021-11-06] VITALS (17 sets, daily range): BP systolic 107–125; BP diastolic 54–76; PULSE 68–77; RESP 12–20; TEMP 36.3–36.8; O2SAT 94–100
[2021-11-06] MEDS: Levothyroxine 88 MCG Tablet PO (05:24)
[2021-11-06] MEDS: 0.9 % NaCl (Sterile) Posiflush 10 mL IV (05:28)
--- NOTE | 2021-11-06 05:33 | CPS ---
bipap not worn this PM
[2021-11-06] MEDS: Insulin Lispro 100 UNIT/ML INSULN.PEN SC ×4 (06:36→21:10)
[2021-11-06] MEDS: Ipratropium 0.5 MG/2.5 ML SOLUTION INHALATION ×4 (06:56→19:46)
[2021-11-06 07:00] LABS: Bedside Glucose 354 mg/dL (74-106)
--- NOTE | 2021-11-06 08:35 | PCM.PN.INT ---
Assessment & Plan Assessment/Plan (1) Acute and chronic respiratory failure with hypoxia: PLAN: Plan RECOMMENDATIONS: 1. Wean supplemental oxygen for saturations at or above 90%. Saturations at 100% for the last 24 hours. 2. Continue current broad-spectrum antimicrobials. 3. Continue scheduled bronchodilators and IV steroids at current dosing. Add Lantus. 4. Continue diuretics as tolerated by hemodynamics and renal function. Follow-up morning labs. 5. Encourage BiPAP utilization with naps and nightly. 6. Encourage incentive spirometer use and mobilize patient as tolerated. 7. Ultimately, the patient will require outpatient pulmonary follow-up for optimization. IMPRESSIONS: 1. Acute on chronic hypoxemic respiratory failure Most likely multifactorial in etiology with possible obstructive lung disease, pulmonary hypertension and heart failure with preserved ejection fraction contributing. CTA chest showed no evidence for pulmonary embolism but revealed findings concerning for bilateral pneumonia. Continue broad-spectrum antibiotics for now. Cultures appear to be negative, but poor baseline increases risk palpitations. Continue scheduled bronchodilators and IV steroids to the patient's current medication regimen. Use of BiPAP with sleep will help in her recovery. Continue to wean supplemental oxygen for saturations greater than 90%. Encourage incentive spirometer use and mobilize patient as tolerated. 2. Pulmonary hypertension/questionable sleep apnea Unfortunately, patient did not do outpatient testing. Empiric BiPAP has been initiated. Patient would benefit from a sleep study soon after discharge if possible. 3. Chronic anemia/recent Proteus bacteremia/paroxysmal atrial fibrillation/hypothyroidism/morbid obesity/depression/anxiety Complicates care, management, recovery and prognosis. Continue home medications as indicated. Patient has had some decrease in hemoglobin without reported bleeding. No transfusion at this time. Lantus will be ordered for hyperglycemia, likely secondary to IV steroids. This note was generated with [employer] dictation software. It may contain incorrect words, spelling, and punctuation that were not noted in checking the note before signing. Subjective Subjective Patient did well overnight. No acute issues were reported. Patient was decreased on BiPAP from 50% to 40% secondary to a saturation of 100%. Patient had good synchrony during my evaluation. Objective Data Objective Data Blood sugars have trended up over the last 24 hours. Lantus has been ordered. Vital Signs: Vital Signs Temp Pulse Resp BP Pulse Ox O2 Del Method O2 Flow Rate 36.4 C L 69 18 125/76 H 100 Nasal Cannula 8 11/06/21 05:18 11/06/21 07:00 11/06/21 06:56 11/06/21 05:18 11/06/21 06:56 11/06/21 05:18 11/06/21 05:18 FiO2 50 11/06/21 06:56 Oxygen Flow Rate (L/min) 8 Oxygen Delivery Method Nasal Cannula Weight: 109.2 kg Body Mass Index (BMI) 40.0 Intake & Output: Intake and Output for Last 24 Hours 11/04/21 11/05/21 11/06/21 23:59 23:59 23:59 Intake Total 1168.33 / 1183.33 2353.83 / 2353.83 Output Total 1375 / 1375 550 / 550 Balance -206.67 / -191.67 1803.83 / 1803.83 Lab / Micro Data Attestation: I reviewed the patient's lab results. Result Diagrams: 11/05/21 06:00 11/05/21 06:00 Labs: Laboratory Results - last 24 hr 11/05/21 11:35: POC Glucose 383 H 11/05/21 16:17: POC Glucose 311 H 11/05/21 21:21: POC Glucose 344 H 11/06/21 06:35: POC Glucose 354 H Micro: Microbiology 11/03/21 09:15 Blood Culture (Wb) - Anticubital Right Blood Culture - Preliminary No growth in 48 hours. 11/03/21 08:45 Blood Culture (Wb) - Anticubital Left Blood Culture - Preliminary No growth in 48 hours. 11/03/21 10:28 Mucosa - Nose Respiratory Panel (PCR) - Final 11/03/21 10:45 Urine, Clean Catch Streptococcus pneumoniae Antigen (M - Final 11/03/21 10:45 Urine, Clean Catch Legionella Antigen - Final 11/03/21 08:45 Nasal Secretion SARS-CoV-2 Antigen (Rapid) - Final Physical Exam Narrative Good BiPAP synchrony noted. Const alert, oriented x3 and no apparent distress Nutritional Appearance: obese HEENT normocephalic and head/scalp atraumatic Eyes PERRL, EOMs intact bilaterally and conjunctivae normal Neck supple General: trachea midline Chest Chest: abnormal inspection of the chest increased A-P diameter Resp normal respiratory effort and no use of accessory muscles Effort and Inspection: Negative for actively coughing Auscultation: diminished lung sounds; Negative for rales, rhonchi or wheezes Cardio regular rate, regular rhythm, S1 normal heart sound, S2 normal heart sound, no rub and no gallops Heart Sounds: murmur systolic II/ soft early right sternal border GI normal to inspection, nondistended, normoactive bowel sounds Extremity General Extremity: edema; Negative for clubbing Skin General Skin Exam: venous stasis and dermatitis Neuro CN's II-XII intact bilaterally, moves all extremities and no focal motor deficits Psych cooperative and affect normal Charges/Coding Visit Charges Inpatient E&M: 25925 Subs Hosp L3
--- NOTE | 2021-11-06 09:30 | PCM.PN.CARD ---
Subjective Subjective Patient seen and evaluated. Appears to be doing better. Objective Data Vital Signs: Vital Signs Temp Pulse Resp BP Pulse Ox O2 Del Method O2 Flow Rate 97.5 F L 69 18 125/76 H 100 Nasal Cannula 8 11/06/21 05:18 11/06/21 07:00 11/06/21 06:56 11/06/21 05:18 11/06/21 06:56 11/06/21 05:18 11/06/21 05:18 FiO2 50 11/06/21 06:56 Oxygen Flow Rate (L/min) 8 Oxygen Delivery Method Nasal Cannula Weight: 240 lb 11.916 oz Body Mass Index (BMI) 40.0 Intake & Output: Intake and Output for Last 24 Hours 11/04/21 11/05/21 11/06/21 23:59 23:59 23:59 Intake Total 1168.33 / 1183.33 2353.83 / 2353.83 Output Total 1375 / 1375 550 / 550 Balance -206.67 / -191.67 1803.83 / 1803.83 Lab / Micro Data Result Diagrams: 11/05/21 06:00 11/05/21 06:00 Labs: Laboratory Results - last 24 hr 11/05/21 11:35: POC Glucose 383 H 11/05/21 16:17: POC Glucose 311 H 11/05/21 21:21: POC Glucose 344 H 11/06/21 06:35: POC Glucose 354 H Micro: Microbiology 11/03/21 09:15 Blood Culture (Wb) - Anticubital Right Blood Culture - Preliminary No growth in 48 hours. 11/03/21 08:45 Blood Culture (Wb) - Anticubital Left Blood Culture - Preliminary No growth in 48 hours. Cardiology Labs/Tests Rhythm: EKG: ECHO: Stress Test: Cardiac Cath: PCI: CT Surgery: Holter monitor: EPS: PPM: CXR: Chest CT Scan: Physical Exam Const alert, oriented x3 and no apparent distress General Appearance: cooperative and comfortable HEENT normocephalic Eyes General Eye: normal appearance of both eyes Neck General: normal visual inspection Lymph Lymphatic: no lymphadenopathy noted and no lymphedema noted Resp normal respiratory effort Cardio regular rate and regular rhythm Extremity normal capillary refill and no calf tenderness Skin no rashes or lesions noted, skin turgor normal and no jaundice Skin Narrative: Left foot: Mild nonpitting postsurgical edema to the left foot. Sutures intact at left hallux amputation stump site. No erythema, no purulent drainage, no malodor, no palpable fluctuance, or other localized signs of infection. Wound Narrative: Left foot: Left heel stage II decubitus ulceration noted to the posterior aspect of the heel. Site demonstrates stable eschar covering with no localized erythema,no purulent drainage, no malodor, no palpable fluctuance, or other localized signs of infection. Neuro oriented x3 and moves all extremities Assessment & Plan Assessment/Plan (1) Atrial fibrillation with rapid ventricular response: PLAN: She has previous evidence of the above but I do not see any current evidence of atrial fibrillation. I would not anticoagulate her at this particular time. (2) Heart failure with preserved ejection fraction: PLAN: She Does have evidence of heart failure with preserved ejection fraction. I would recommend that we discontinue the amlodipine and put her on diltiazem. Ideally she should be switched to a beta-skyler but she seems to be tolerating the calcium channel skyler for now and I will continue her with diltiazem 120 mg daily. (3) SVT (supraventricular tachycardia): PLAN: She did develop a narrow complex tachycardia with preserved ejection fraction. The above may have been precipitated by the adrenergic agents. She appears to be maintaining sinus rhythm on the oral calcium channel skyler and for now I will continue that with no changes. Thank you for allowing me to participate in the care of your patient. Please don't hesitate to call if any issues arise.
[2021-11-06] MEDS: Furosemide 20 MG Tablet 60 MG PO ×2 (09:50→16:28)
[2021-11-06] MEDS: Metoprolol(XL)Succ 50 MG Tablet PO ×2 (09:51→21:17)
[2021-11-06] MEDS: dilTIAZem CD 120 MG Capsule PO (09:51)
[2021-11-06] MEDS: Gabapentin 100 MG Capsule PO ×3 (09:51→16:27)
[2021-11-06] MEDS: Pantoprazole Sodium 40 MG Tablet PO ×2 (09:51→21:17)
[2021-11-06] MEDS: Enoxaparin 40 MG/0.4 ML Syringe SC ×2 (09:51→21:15)
[2021-11-06] MEDS: Collagenase 30gm Tube 1 APPLIC TOPICAL (09:52)
--- NOTE | 2021-11-06 09:58 | PCM.PN.HOSP ---
Documented by User: Laura Suarez NP, PHYSICIAN SUPPORT COORDINATOR-C 11/06/21 10:14 Subjective Subjective Patient seen and examined. Feels overall improved. Breathing improved. Denies other symptoms or complaints. Objective Data Objective Data Vital Signs: Vital Signs Temp Pulse Resp BP Pulse Ox O2 Del Method O2 Flow Rate 98.2 F 77 18 113/54 L 96 Nasal Cannula 4 11/06/21 09:45 11/06/21 09:45 11/06/21 09:45 11/06/21 09:45 11/06/21 09:45 11/06/21 09:45 11/06/21 09:45 FiO2 50 11/06/21 06:56 Oxygen Flow Rate (L/min) 4 Oxygen Delivery Method Nasal Cannula Weight: 240 lb 11.916 oz Body Mass Index (BMI) 40.0 Intake & Output: Intake and Output for Last 24 Hours 11/04/21 11/05/21 11/06/21 23:59 23:59 23:59 Intake Total 1168.33 / 1183.33 2353.83 / 2353.83 Output Total 1375 / 1375 550 / 550 Balance -206.67 / -191.67 1803.83 / 1803.83 Lab / Micro Data Result Diagrams: 11/05/21 06:00 11/05/21 06:00 Labs: Laboratory Results - last 24 hr 11/05/21 11:35: POC Glucose 383 H 11/05/21 16:17: POC Glucose 311 H 11/05/21 21:21: POC Glucose 344 H 11/06/21 06:35: POC Glucose 354 H Micro: Microbiology 11/03/21 09:15 Blood Culture (Wb) - Anticubital Right Blood Culture - Preliminary No growth in 48 hours. 11/03/21 08:45 Blood Culture (Wb) - Anticubital Left Blood Culture - Preliminary No growth in 48 hours. 11/03/21 10:28 Mucosa - Nose Respiratory Panel (PCR) - Final 11/03/21 10:45 Urine, Clean Catch Streptococcus pneumoniae Antigen (M - Final 11/03/21 10:45 Urine, Clean Catch Legionella Antigen - Final 11/03/21 08:45 Nasal Secretion SARS-CoV-2 Antigen (Rapid) - Final Physical Exam Const alert and oriented x3 HEENT normocephalic and moist oral mucous membranes Eyes PERRL, EOMs intact bilaterally and conjunctivae normal Neck no lymphadenopathy Resp clear to auscultation bilaterally Auscultation: diminished lung sounds Cardio regular rate, regular rhythm and no murmurs Peripheral Pulses: pulses 2+ throughout GI normal to inspection, nondistended, normoactive bowel sounds, non-tender and non-distended Extremity normal to inspection Skin no rashes or lesions noted Skin Narrative: Recent left hallux amputation, dressing intact. Lesions: no lesions Rashes: no rashes Trauma: no lacerations or abrasions Neuro CN's II-XII intact bilaterally, no focal motor deficits, no sensory deficits noted and deep tendon reflexes 2+ bilaterally Psych mental status grossly normal and affect normal Assessment & Plan Assessment/Plan (1) Acute and chronic respiratory failure with hypoxia: PLAN: Plan 1.? Acute on chronic hypoxic respiratory failure secondary to acute on chronic heart failure with preserved ejection fraction and hospital-acquired pneumonia- CTA with diffuse bilateral pulmonary infiltrates and small bilateral pleural effusions.? Continue supplemental oxygen to maintain O2 at above 90%. Pulmonary medicine consulted. IV steroids for suspected obstructive lung disease. Patient will need outpatient follow up with pulmonary medicine for PFTs.? Continue BiPAP QHS.? Oxygenation improving, now on 4 L nasal cannula. 2.? Hospital-acquired pneumonia-IV azithromycin and IV cefepime.? Scheduled ipratropium.? Albuterol/DuoNeb aerosols discontinued due to SVT.? Send sputum for culture.? Blood cultures with no growth.? Urine for strep and Legionella negative.? Respiratory panel negative. 3.? Acute on chronic heart failure with preserved ejection fraction-recent echocardiogram with EF 55%, moderate mitral valve insufficiency, moderate tricuspid valve insufficiency.? IV Lasix discontinued due to increasing creatinine, transition to oral Lasix 60 mg twice daily.? Strict I&O.? Daily weight.? 4.? Chronic anemia with recent GI bleed-recent Colonoscopy without evidence of bleeding, poor prep.? EGD with esophageal plaques consistent with candidiasis, nonbleeding gastric ulcer which was biopsied.? Continue PPI.? Outpatient follow-up with GI.? Trend CBC. Transfuse for hgb less than 7. 5.?Recent Proteus bacteremia secondary to left great toe neuropathic infected wound-Underwent left hallux amputation 10/21/2021.?Wound RN consult. Podiatry following. 6.? Suspected recent new onset atrial fibrillation-Noted during recent admission.? Did not initiate anticoagulation secondary to GI bleed.? Continue rate control regimen.? Outpatient follow-up. 7.? Paroxysmal SVT-previously received adenosine 6 mg followed by 12 mg.? Subsequently placed on Cardizem drip.? Drip discontinued and transitioned to Cardizem 120 mg daily.? Heart rate stable. 8. Type 2 diabetes [id number]-[id number]-[id number] with sliding scale insulin.? Continue home insulin regimen. 9. Hypothyroidism-continue Synthroid regimen. 10. CAD-continue medical management. 11. Hyperlipidemia-continue statin. 12. Depression/anxiety-on bupropion, Ativan, paroxetine. 13.? Chronic COPD-as needed albuterol aerosol. 14.? Chronic kidney disease stage IIIb-appears at baseline DVT prophylaxis- Lovenox sc This patient was seen by DEVON Woodward under the supervision of Dr. Roberts. Documented by User: Dr. Augie Roberts MD 11/06/21 10:32 Objective Data Lab / Micro Data Result Diagrams: 11/05/21 06:00 11/05/21 06:00 Assessment & Plan Assessment/Plan (1) Acute and chronic respiratory failure with hypoxia: Addt'l Comments This patient was seen in conjunction with DEVON Woodward .? I have independently interviewed and examined the patient and reviewed pertinent historical, laboratory, and other data.? Please refer to DEVON Woodward? note for details of this patient's presentation, findings, and recommendations.? I have reviewed? DEVON Woodward ? note and concur? with documented findings. In brief, patient is a 66-year-old lady who recently underwent left hallux amputation as a result of neuropathic infected wound was transferred to transitional care unit to continue with her recuperation.? Patient did develop progressive shortness of breath over 2-day.? Was eventually sent to the emergency department where she was placed on noninvasive ventilation BiPAP.? Admitted to a monitored bed as a case of acute hypoxic respiratory failure due to combination of suspected healthcare associated pneumonia and CHF 11/04/2021; patient seen still requiring significant amount of oxygen.? Decision was made to consult pulmonary medicine.? Patient responded well to diuresis as evidenced by increasing creatinine.? Her diuretic dose subsequently adjusted 11/05/2021; patient went into PSVT the day prior necessitating initiation of Cardizem drip.? Consult was also placed to cardiology.? Patient was also seen in consultation by pulmonary medicine systemic steroid added to patient's therapy.? Patient was placed on BiPAP during the night which she tolerated. 11/06/2021 patient seen overall clinical condition continues to improve. Patient however has significant hyperglycemia due to concomitant use of steroid. Adjusted patient insulin regimen. Also switch Solu-Medrol to p.o. prednisone Physical Examination: GENERAL: Cooperative HEENT: Atraumatic; EYES; Anicteric, Normal Conjunctiva NECK; supple, normal thyroid, RESPIRATORY: Diminished to auscultation CARDIOVASCULAR:? Regular S1 S2, GI:? soft, normoactive bowel sounds, : No Renal angle tenderness; EXTREMITIES: Trace bipedal edema, left foot in surgical dressing MUSCULOSKELETAL:? no muscle wasting NEURO:? Awake;? no lateralizing signs. SKIN:? No Rash PSYCH; Flat? affect Assessment: 1.? Acute hypoxic respiratory failure 2.? Chronic hypoxic respiratory failure 3.? Pneumonia with suspected gram-negative organisms 4.? Acute on chronic congestive heart failure with preserved ejection fraction?EF 55% 5.? Anemia of chronic disorder 6.? 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 Diabetes 8.? Hypothyroidism 9.? Paroxysmal A. fib 10.? Class III obesity with BMI of 40.1 11.? Dyslipidemia 12.? Depression anxiety 13.? Chronic kidney disease stage IIIb 14.? Recent diagnosis of esophageal candidiasis 15.? COPD 16.? Obstructive sleep apnea 17.? DVT prophylaxis 18. PSVT Recommendations: 1.? I have discussed the results of my overview and impressions with the patient 2.? Options for management were reviewed Total time spent by myself and the advanced practice practitioner evaluating patient, reviewing labs, subsequent management decisions, discussion with patient as well as other providers 40minutes ( 25 of which was spent by myself) Charges/Coding Visit Charges Inpatient E&M: 62059 Subs Hosp L2
[2021-11-06 10:48] LABS: Absolute Lymphocyte Count 0.46 X10^3/uL (0.83-4.51); Basophil# 0.01 X10^3/uL; Basophil% 0.1 % (0-1); Hematocrit 24.8 % (37-47); Hemoglobin 7.4 g/dL (12.0-15.0); Lymphocyte # 0.46 X10^3/ul (0.83-4.51); Lymphocyte % 4.7 % (19-41); Mean Corp Hgb Conc 29.8 g/dL (32-36); Mean Corpuscular Hgb 27.8 pg (27.0-32.0); Mean Corpuscular Volume 93.2 fL (81-99); Mean Platelet Vol. 11.5 fl (6.2-12.0); Monocyte# 0.34 X10^3/uL; Monocyte% 3.4 % (0-10); NRBC Flagged by Analyzer 0 % (0-5); POSITIVE DIFFERENTIAL YES; Platelet Count 123 K/mm3 (150-450); RBC Distribution Width CV 15.8 % (11.6-14.6); RBC Distribution Width SD 53.8 fl (35.1-43.9); Red Blood Count 2.66 M/mm3 (4.2-5.4); White Blood Count 9.9 K/mm3 (4.4-11.0)
[2021-11-06 10:51] LABS: Differential Indicated SCAN CRITERIA MET
[2021-11-06 11:04] LABS: Anion Gap 9 (5-15); BUN 55 mg/dL (7-18); BUN/Creat Ratio 26.3 RATIO (10-20); Calcium,Total 8.6 mg/dL (8.5-10.1); Chloride 97 mmol/L (98-107); Creatinine, Serum 2.09 mg/dL (0.55-1.02); EST Glomerular Filtration Rate 25 mL/min (>60); Est Glom Filt Rate - Afr Amer 31 mL/min (>60); Estimated Creatinine Clearance 24.15 ml/min; Glucose 342 mg/dL (74-106); Sodium Level 135 mmol/L (136-145)
[2021-11-06 11:21] LABS: Differential Comment SCANNED
[2021-11-06] MEDS: oxyCODONE 5 MG Tablet PO ×2 (11:30→21:07)
[2021-11-06] MEDS: Acetaminophen 325 MG Tablet 650 MG PO (11:30)
[2021-11-06 11:45] LABS: Bedside Glucose 390 mg/dL (74-106)
[2021-11-06] MEDS: Insulin Glargine-YFGN 100 UNIT/ML Pen 15 UNIT SC ×2 (11:57→21:13)
[2021-11-06] MEDS: Insulin Lispro 100 UNIT/ML INSULN.PEN 7 UNIT SC ×2 (12:00→16:27)
[2021-11-06] MEDS: Glucerna Shake 120 ML LIQUID PO (16:31)
[2021-11-06 17:50] LABS: Bedside Glucose 304 mg/dL (74-106)
[2021-11-06] MEDS: traZODone 50 MG Tablet PO (21:11)
[2021-11-06] MEDS: Atorvastatin Calcium 80 MG Tablet PO (21:14)
[2021-11-06] MEDS: Paroxetine 20 MG Tablet 40 MG PO (21:16)
[2021-11-06] MEDS: buPROPion (XL) 150 MG TABLET.XL PO (21:18)
[2021-11-07] VITALS (17 sets, daily range): BP systolic 102–122; BP diastolic 50–100; PULSE 67–75; RESP 18–23; TEMP 35.8–36.6; O2SAT 93–98
[2021-11-07] MEDS: LORazepam 0.5 MG Tablet PO ×2 (00:07→21:49)
[2021-11-07] MEDS: Acetaminophen 325 MG Tablet 650 MG PO ×3 (00:09→21:50)
[2021-11-07 01:31] LABS: Bedside Glucose 207 mg/dL (74-106)
--- NOTE | 2021-11-07 03:21 | NURSING ---
Pulled Oxy 5mg out of [facility] for patient then patietn didnt want medication and Oxy tablet returned to [facility] return box on side
[2021-11-07 05:52] LABS: Absolute Lymphocyte Count 0.85 X10^3/uL (0.83-4.51); Absolute Neutrophil Count 9.5 X10^3/uL (2.0-7.7); Hematocrit 25.5 % (37-47); Hemoglobin 7.8 g/dL (12.0-15.0); Lymphocyte # 0.85 X10^3/ul (0.83-4.51); Lymphocyte % 7.7 % (19-41); Mean Corp Hgb Conc 30.6 g/dL (32-36); Mean Corpuscular Hgb 27.8 pg (27.0-32.0); Mean Corpuscular Volume 90.7 fL (81-99); Mean Platelet Vol. 11.7 fl (6.2-12.0); Monocyte% 5.4 % (0-10); NRBC Flagged by Analyzer 0 % (0-5); Neutrophil # 9.51 X10^3/uL (2.7-7.7); Neutrophil % 86.2 % (47-70); Platelet Count 134 K/mm3 (150-450); RBC Distribution Width CV 15.7 % (11.6-14.6); Red Blood Count 2.81 M/mm3 (4.2-5.4)
[2021-11-07 06:07] LABS: Anion Gap 10 (5-15); BUN 63 mg/dL (7-18); BUN/Creat Ratio 28.1 RATIO (10-20); Calcium,Total 8.6 mg/dL (8.5-10.1); Chloride 95 mmol/L (98-107); Creatinine, Serum 2.24 mg/dL (0.55-1.02); EST Glomerular Filtration Rate 23 mL/min (>60); Est Glom Filt Rate - Afr Amer 28 mL/min (>60); Estimated Creatinine Clearance 22.53 ml/min; Glucose 219 mg/dL (74-106); Potassium 4.6 mmol/L (3.5-5.1); Sodium Level 134 mmol/L (136-145)
[2021-11-07] MEDS: Levothyroxine 88 MCG Tablet PO (06:14)
[2021-11-07] MEDS: Ipratropium 0.5 MG/2.5 ML SOLUTION INHALATION ×4 (07:59→19:12)
[2021-11-07] MEDS: Insulin Lispro 100 UNIT/ML INSULN.PEN SC ×4 (08:26→21:54)
[2021-11-07] MEDS: Insulin Lispro 100 UNIT/ML INSULN.PEN 7 UNIT SC ×3 (08:27→17:24)
[2021-11-07] MEDS: Collagenase 30gm Tube 1 APPLIC TOPICAL (08:33)
[2021-11-07] MEDS: Gabapentin 100 MG Capsule PO ×3 (08:37→17:28)
[2021-11-07] MEDS: Glucerna Shake 120 ML LIQUID PO ×2 (08:37→11:33)
[2021-11-07] MEDS: predniSONE 20 MG Tablet 40 MG PO (08:37)
[2021-11-07] MEDS: Furosemide 20 MG Tablet 60 MG PO (08:38)
[2021-11-07] MEDS: Enoxaparin 40 MG/0.4 ML Syringe SC ×2 (08:42→21:52)
[2021-11-07] MEDS: Metoprolol(XL)Succ 50 MG Tablet PO ×2 (08:42→21:49)
[2021-11-07] MEDS: Pantoprazole Sodium 40 MG Tablet PO ×2 (08:42→21:50)
[2021-11-07] MEDS: dilTIAZem CD 120 MG Capsule PO (08:42)
[2021-11-07] MEDS: Insulin Glargine-YFGN 100 UNIT/ML Pen 15 UNIT SC ×2 (08:43→21:52)
[2021-11-07] MEDS: oxyCODONE 5 MG Tablet PO (08:51)
[2021-11-07 09:15] LABS: Bedside Glucose 223 mg/dL (74-106)
--- NOTE | 2021-11-07 09:18 | CASEMGMT ---
SW spoke with patient. Introduced self and role at [facility]. SW spoke with patient about her discharge plan. The plan when she left TCU was to go to [facility]. SW asked patient if she would like to go right to [facility] instead of back to TCU. Patient said she wants to go back to TCU. SW notified Kaelyn to please start the pre-cert. Plan: d/c back to TCU pending insurance approval. Clare DASILVA
--- NOTE | 2021-11-07 09:43 | PCM.PN.INT ---
Assessment & Plan Assessment/Plan (1) Acute and chronic respiratory failure with hypoxia: PLAN: Plan RECOMMENDATIONS: 1. Continue to titrate oxygen for saturations 90 to 94% 2. Hold Lasix for now 3. Continue scheduled bronchodilators and IV steroids at current dosing. Continue Lantus. 4. Continue diuretics as tolerated by hemodynamics and renal function. Follow-up morning labs. 5. Encourage BiPAP utilization with naps and nightly. 6. Encourage incentive spirometer use and mobilize patient as tolerated. 7. Ultimately, the patient will require outpatient pulmonary follow-up for optimization. IMPRESSIONS: 1. Acute on chronic hypoxemic respiratory failure Most likely multifactorial in etiology with possible obstructive lung disease, pulmonary hypertension and heart failure with preserved ejection fraction contributing. CTA chest showed no evidence for pulmonary embolism but revealed findings concerning for bilateral pneumonia. Continue azithromycin to complete a 5-day course. Cultures appear to be negative, but poor baseline increases risk palpitations. Continue scheduled bronchodilators and steroids. Likely wean steroids over the next 12 to 14 days. Use of BiPAP with sleep will help in her recovery. Continue to wean supplemental oxygen for saturations greater than 90%. Encourage incentive spirometer use and mobilize patient as tolerated. 2. Pulmonary hypertension/questionable sleep apnea Unfortunately, patient did not do outpatient testing. Empiric BiPAP has been initiated. Patient would benefit from a sleep study soon after discharge if possible. 3. Chronic anemia/recent Proteus bacteremia/paroxysmal atrial fibrillation/hypothyroidism/morbid obesity/depression/anxiety Complicates care, management, recovery and prognosis. Continue home medications as indicated. Patient has had some decrease in hemoglobin without reported bleeding. No transfusion at this time. Lantus will be ordered for hyperglycemia, likely secondary to steroids. 4. Acute kidney injury Clinical suspicion for elevation of creatinine secondary to Lasix in the setting of polyuria secondary to elevated blood sugars. Patient was transition to prednisone yesterday. We will hold Lasix today. Patient is not currently on an ARB or LAURA inhibitor. No indication for renal replacement therapy. This note was generated with [employer] dictation software. It may contain incorrect words, spelling, and punctuation that were not noted in checking the note before signing. Subjective Subjective Patient did well overnight. No acute issues were reported. Patient subjectively feels improved compared to yesterday. Patient's oxygenation status is also significantly improved over the last 24 hours that she is currently on 4 L/min. Patient did require 6 L/min for mobilization to the bed side chair. Objective Data Objective Data Vital Signs: Vital Signs Temp Pulse Resp BP Pulse Ox O2 Del Method O2 Flow Rate 36.3 C L 75 18 119/50 L 96 Nasal Cannula 6 11/07/21 08:55 11/07/21 08:55 11/07/21 08:55 11/07/21 08:55 11/07/21 08:55 11/07/21 08:55 11/07/21 08:55 FiO2 50 11/06/21 06:56 Oxygen Flow Rate (L/min) 6 Oxygen Delivery Method Nasal Cannula Weight: 109.2 kg Body Mass Index (BMI) 40.0 Intake & Output: Intake and Output for Last 24 Hours 11/05/21 11/06/21 11/07/21 23:59 23:59 23:59 Intake Total 2353.83 / 2353.83 1055 / 1055 255 / 255 Output Total 550 / 550 100 / 100 Balance 1803.83 / 1803.83 955 / 955 255 / 255 Lab / Micro Data Attestation: I reviewed the patient's lab results. Result Diagrams: 11/07/21 05:00 11/07/21 05:00 Labs: Laboratory Results - last 24 hr 11/06/21 10:29: WBC 9.9, RBC 2.66 L, Hgb 7.4 L, Hct 24.8 L, MCV 93.2, MCH 27.8, MCHC 29.8 L, RDW Std Deviation 53.8 H, RDW Coeff of Magen 15.8 H, Plt Count 123 L, MPV 11.5, Immature Gran % (Auto) 0.800, Neut % (Auto) 91.0 H, Lymph % (Auto) 4.7 L, [place] % (Auto) 3.4, Eos % (Auto) 0.0, Baso % (Auto) 0.1, Absolute Neuts (auto) 9.0 H, Absolute Lymphs (auto) 0.46 L, Nucleated RBC % 0, Differential Comment SCANNED 11/06/21 10:29: Sodium 135 L, Potassium 4.0, Chloride 97 L, Carbon Dioxide 29.0, Anion Gap 9, BUN 55 H, Creatinine 2.09 H, Estim Creat Clear Calc 24.15, Est GFR (MDRD) Af Amer 31 L, Est GFR (MDRD) Non-Af 25 L, BUN/Creatinine Ratio 26.3 H, Glucose 342 H, Calcium 8.6 11/06/21 11:20: POC Glucose 390 H 11/06/21 16:25: POC Glucose 304 H 11/06/21 21:09: POC Glucose 207 H 11/07/21 05:00: WBC 11.0, RBC 2.81 L, Hgb 7.8 L, Hct 25.5 L, MCV 90.7, MCH 27.8, MCHC 30.6 L, RDW Std Deviation 52.0 H, RDW Coeff of Magen 15.7 H, Plt Count 134 L, MPV 11.7, Immature Gran % (Auto) 0.700, Neut % (Auto) 86.2 H, Lymph % (Auto) 7.7 L, [place] % (Auto) 5.4, Eos % (Auto) 0.0, Baso % (Auto) 0.0, Absolute Neuts (auto) 9.5 H, Absolute Lymphs (auto) 0.85, Nucleated RBC % 0 11/07/21 05:00: Sodium 134 L, Potassium 4.6, Chloride 95 L, Carbon Dioxide 29.0, Anion Gap 10, BUN 63 H, Creatinine 2.24 H, Estim Creat Clear Calc 22.53, Est GFR (MDRD) Af Amer 28 L, Est GFR (MDRD) Non-Af 23 L, BUN/Creatinine Ratio 28.1 H, Glucose 219 H, Calcium 8.6 11/07/21 08:19: POC Glucose 223 H Micro: Microbiology 11/03/21 09:15 Blood Culture (Wb) - Anticubital Right Blood Culture - Preliminary No growth in 48 hours. 11/03/21 08:45 Blood Culture (Wb) - Anticubital Left Blood Culture - Preliminary No growth in 48 hours. 11/03/21 10:28 Mucosa - Nose Respiratory Panel (PCR) - Final 11/03/21 10:45 Urine, Clean Catch Streptococcus pneumoniae Antigen (M - Final 11/03/21 10:45 Urine, Clean Catch Legionella Antigen - Final 11/03/21 08:45 Nasal Secretion SARS-CoV-2 Antigen (Rapid) - Final Physical Exam Const alert, oriented x3 and no apparent distress Nutritional Appearance: obese HEENT normocephalic and head/scalp atraumatic Eyes PERRL, EOMs intact bilaterally and conjunctivae normal Neck supple General: trachea midline Chest inspection of chest normal Chest: abnormal inspection of the chest increased A-P diameter Resp normal respiratory effort and no use of accessory muscles Effort and Inspection: Negative for actively coughing Auscultation: diminished lung sounds; Negative for rales, rhonchi or wheezes Cardio regular rate, regular rhythm, S1 normal heart sound, S2 normal heart sound, no rub and no gallops Heart Sounds: murmur systolic II/ soft early right sternal border GI normal to inspection, nondistended, normoactive bowel sounds Extremity General Extremity: edema; Negative for clubbing Skin General Skin Exam: venous stasis and dermatitis Neuro CN's II-XII intact bilaterally, moves all extremities and no focal motor deficits Psych cooperative and affect normal Charges/Coding Visit Charges Inpatient E&M: 06618 Subs Hosp L3
--- NOTE | 2021-11-07 10:23 | WOUNDNOTE ---
wound photo: left foot
--- NOTE | 2021-11-07 10:23 | WOUNDNOTE ---
wound photo: left foot
--- NOTE | 2021-11-07 10:24 | WOUNDNOTE ---
wound photo:left heel
--- NOTE | 2021-11-07 10:25 | WOUNDNOTE ---
wound photo: right heel
--- NOTE | 2021-11-07 10:27 | CASEMGMT ---
Readmission chart review: 10/14-10/22/21 A on C foot ulcers 11/03/21-current Acute hypoxic resp failure Pt presents 10/14/21 for bumping left foot/toe and pt admitted for Left foot chronic wound ulcer. Pt has order for home oxygen thru [employer] at 3L at rest and 4L with exertion. Pt did have left big toe amputation during visit. Pt was on increased oxygen during stay but was down to 3L and was discharge to TCU as pt/daughter did not feel they could complete dressing/wound changes at home daily. Pt returned from TCU on 11/03/21 for increased oxygen need, confusion/hallucinations. Pt admitted to PCU for Acute hypoxic resp failure. Pt is currently on 6L nc and plan is for pt to return to TCU. Exam Proctor has been on consult during visit. CM to follow. Aster BOURGEOIS CM
[2021-11-07 12:05] LABS: Bedside Glucose 289 mg/dL (74-106)
--- NOTE | 2021-11-07 12:14 | PN.HOSP_ITS ---
Documented by User: Laura Suarez NP, SHAMPOO TECHNICIAN-C 11/07/21 12:25 Subjective Subjective Patient seen and examined. Oxygenation improving. Breathing improved. Denies new symptoms or complaints. States she feels overall improved. Objective Data Objective Data Vital Signs: Vital Signs Temp Pulse Resp BP Pulse Ox O2 Del Method O2 Flow Rate 97.3 F L 72 18 119/50 L 97 Nasal Cannula 6 11/07/21 08:55 11/07/21 11:00 11/07/21 08:55 11/07/21 08:55 11/07/21 11:28 11/07/21 08:55 11/07/21 11:28 FiO2 50 11/06/21 06:56 Oxygen Flow Rate (L/min) 6 Oxygen Delivery Method Nasal Cannula Weight: 240 lb 11.916 oz Body Mass Index (BMI) 40.0 Intake & Output: Intake and Output for Last 24 Hours 11/05/21 11/06/21 11/07/21 23:59 23:59 23:59 Intake Total 2353.83 / 2353.83 1055 / 1055 715 / 715 Output Total 550 / 550 100 / 100 Balance 1803.83 / 1803.83 955 / 955 715 / 715 Lab / Micro Data Result Diagrams: 11/07/21 05:00 11/07/21 05:00 Labs: Laboratory Results - last 24 hr 11/06/21 16:25: POC Glucose 304 H 11/06/21 21:09: POC Glucose 207 H 11/07/21 05:00: WBC 11.0, RBC 2.81 L, Hgb 7.8 L, Hct 25.5 L, MCV 90.7, MCH 27.8, MCHC 30.6 L, RDW Std Deviation 52.0 H, RDW Coeff of Magen 15.7 H, Plt Count 134 L, MPV 11.7, Immature Gran % (Auto) 0.700, Neut % (Auto) 86.2 H, Lymph % (Auto) 7.7 L, [place] % (Auto) 5.4, Eos % (Auto) 0.0, Baso % (Auto) 0.0, Absolute Neuts (auto) 9.5 H, Absolute Lymphs (auto) 0.85, Nucleated RBC % 0 11/07/21 05:00: Sodium 134 L, Potassium 4.6, Chloride 95 L, Carbon Dioxide 29.0, Anion Gap 10, BUN 63 H, Creatinine 2.24 H, Estim Creat Clear Calc 22.53, Est GFR (MDRD) Af Amer 28 L, Est GFR (MDRD) Non-Af 23 L, BUN/Creatinine Ratio 28.1 H, Glucose 219 H, Calcium 8.6 11/07/21 08:19: POC Glucose 223 H 11/07/21 11:29: POC Glucose 289 H Micro: Microbiology 11/03/21 09:15 Blood Culture (Wb) - Anticubital Right Blood Culture - Preliminary No growth in 48 hours. 11/03/21 08:45 Blood Culture (Wb) - Anticubital Left Blood Culture - Preliminary No growth in 48 hours. 11/03/21 10:28 Mucosa - Nose Respiratory Panel (PCR) - Final 11/03/21 10:45 Urine, Clean Catch Streptococcus pneumoniae Antigen (M - Final 11/03/21 10:45 Urine, Clean Catch Legionella Antigen - Final 11/03/21 08:45 Nasal Secretion SARS-CoV-2 Antigen (Rapid) - Final Physical Exam Const alert and oriented x3 HEENT normocephalic and moist oral mucous membranes Eyes PERRL, EOMs intact bilaterally and conjunctivae normal Neck no lymphadenopathy Resp clear to auscultation bilaterally Auscultation: diminished lung sounds Cardio regular rate, regular rhythm and no murmurs Peripheral Pulses: pulses 2+ throughout GI normal to inspection, nondistended, normoactive bowel sounds, non-tender and non-distended Extremity normal to inspection Skin no rashes or lesions noted Skin Narrative: Recent left hallux amputation, dressing intact. Lesions: no lesions Rashes: no rashes Trauma: no lacerations or abrasions Neuro CN's II-XII intact bilaterally, no focal motor deficits, no sensory deficits noted and deep tendon reflexes 2+ bilaterally Psych mental status grossly normal and affect normal Assessment & Plan Assessment/Plan (1) Acute and chronic respiratory failure with hypoxia: PLAN: Plan 1.? Acute on chronic hypoxic respiratory failure secondary to acute on chronic heart failure with preserved ejection fraction and hospital-acquired pneumonia- CTA with diffuse bilateral pulmonary infiltrates and small bilateral pleural effusions.? Continue supplemental oxygen to maintain O2 at above 90%. Pulmonary medicine consulted. IV steroids for suspected obstructive lung disease, transition to oral prednisone. Patient will need outpatient follow up with pulm annika medicine for PFTs.? Continue BiPAP QHS.? Oxygenation improving, now on 6 L nasal cannula. 2.? Hospital-acquired pneumonia- IV cefepime.? Completed 5 days of IV azithromycin. Scheduled ipratropium.? Albuterol/DuoNeb aerosols discontinued due to SVT.? Send sputum for culture.? Blood cultures with no growth.? Urine for strep and Legionella negative.? Respiratory panel negative. 3.? Acute on chronic heart failure with preserved ejection fraction-recent echocardiogram with EF 55%, moderate mitral valve insufficiency, moderate tricuspid valve insufficiency.? IV Lasix discontinued due to increasing creatinine, transitioned to oral lasix however will hold due to creat trending up.? Strict I&O.? Daily weight.? 4.? Chronic anemia with recent GI bleed-recent Colonoscopy without evidence of bleeding, poor prep.? EGD with esophageal plaques consistent with candidiasis, nonbleeding gastric ulcer which was biopsied.? Continue PPI.? Outpatient follow- up with GI.? Trend CBC. Transfuse for hgb less than 7. 5.?Recent Proteus bacteremia secondary to left great toe neuropathic infected wound-Underwent left hallux amputation 10/21/2021.?Wound RN consult. Podiatry following. 6.? Suspected recent new onset atrial fibrillation-Noted during recent admission.? Did not initiate anticoagulation secondary to GI bleed.? Continue rate control regimen.? Outpatient follow-up. 7.? Paroxysmal SVT-previously received adenosine 6 mg followed by 12 mg.? Subsequently placed on Cardizem drip.? Drip discontinued and transitioned to Cardizem 120 mg daily.? Heart rate stable. 8. Type 2 diabetes vagqdbhn-Laov-Padbu with sliding scale insulin.? Continue home insulin regimen. 9. Hypothyroidism-continue Synthroid regimen. 10. CAD-continue medical management. 11. Hyperlipidemia-continue statin. 12. Depression/anxiety-on bupropion, Ativan, paroxetine. 13.? Chronic COPD-as needed albuterol aerosol. 14.?MIKE on Chronic kidney disease stage IIIb-diuretic regimen on hold as noted above. Trend BMP. DVT prophylaxis- Lovenox sc Discharge planning: SNF pending precertification. This patient was seen by DEVON Woodward under the supervision of Dr. Cooper. Time spent examining patient, reviewing data and subsequent management of care: 15 minutes Documented by User: Dr. Lalo Cooper MD 11/07/21 13:03 Objective Data Lab / Micro Data Result Diagrams: 11/07/21 05:00 11/07/21 05:00 Assessment & Plan Assessment/Plan (1) Acute and chronic respiratory failure with hypoxia: Charges/Coding Addendum Addendum: Addendum: Dr. Cooper I personally examined the patient and reviewed the chart. I agree with the above. 66-year-old female who presented to the hospital with shortness of breath. She was originally in TCU and the day prior to her admission she had an ASSEMBLY LINE LEADER called for shortness of breath. While in TCU she went from needing 3 L nasal cannula for oxygen up to 8 L nasal cannula. She was given multiple doses of IV Lasix without any significant improvement therefore she was transferred to the ER. Cardiology was consulted acute on chronic diastolic heart failure as well as her A. fib and SVT. She has slowly improved during her stay and currently we are attempting to obtain pre-CERT for discharge back to the SNF. She appears to be down about 6 pounds with diuresis. She did receive adenosine as well for SVT and is currently on Cardizem which she seems to be tolerating. She is also on cefepime for hospital-acquired pneumonia, she did complete 5 days of azithromycin. Clinical time spent in all aspects of patient care: 20 minutes Visit Charges Inpatient E&M: 82241 Subs Hosp L3
--- NOTE | 2021-11-07 14:24 | CASEMGMT ---
Kaelyn notified SW that patient was approved for TCU. GREG notified Nurse Practitioner. Clare DASILVA
[2021-11-07 17:45] LABS: Bedside Glucose 206 mg/dL (74-106)
[2021-11-07] MEDS: 0.9 % NaCl (Sterile) Posiflush 10 mL IV (21:47)
[2021-11-07] MEDS: traZODone 50 MG Tablet PO (21:49)
[2021-11-07] MEDS: Atorvastatin Calcium 80 MG Tablet PO (21:49)
[2021-11-07] MEDS: buPROPion (XL) 150 MG TABLET.XL PO (21:50)
[2021-11-07] MEDS: Paroxetine 20 MG Tablet 40 MG PO (21:50)
[2021-11-07 23:11] LABS: Bedside Glucose 249 mg/dL (74-106)
[2021-11-08] VITALS (11 sets, daily range): BP systolic 129–141; BP diastolic 69–79; PULSE 68–77; RESP 20–22; TEMP 36.4–36.6; O2SAT 91–96
[2021-11-08] MEDS: Levothyroxine 88 MCG Tablet PO (05:31)
[2021-11-08] MEDS: Ipratropium 0.5 MG/2.5 ML SOLUTION INHALATION ×2 (06:54→10:27)
[2021-11-08 07:01] LABS: Absolute Lymphocyte Count 0.84 X10^3/uL (0.83-4.51); Absolute Neutrophil Count 7.7 X10^3/uL (2.0-7.7); Basophil# 0.01 X10^3/uL; Basophil% 0.1 % (0-1); Eosinophil# 0.03 X10^3/uL; Eosinophils% 0.3 % (0-5); Hematocrit 26.2 % (37-47); Hemoglobin 8.2 g/dL (12.0-15.0); Lymphocyte # 0.84 X10^3/ul (0.83-4.51); Mean Corp Hgb Conc 31.3 g/dL (32-36); Mean Corpuscular Hgb 28.6 pg (27.0-32.0); Mean Corpuscular Volume 91.3 fL (81-99); Mean Platelet Vol. 12.1 fl (6.2-12.0); Monocyte# 0.74 X10^3/uL; Monocyte% 7.9 % (0-10); NRBC Flagged by Analyzer 0 % (0-5); Neutrophil # 7.69 X10^3/uL (2.7-7.7); Neutrophil % 82.3 % (47-70); Platelet Count 137 K/mm3 (150-450); RBC Distribution Width CV 15.7 % (11.6-14.6); RBC Distribution Width SD 51.6 fl (35.1-43.9); Red Blood Count 2.87 M/mm3 (4.2-5.4); White Blood Count 9.4 K/mm3 (4.4-11.0)
[2021-11-08 07:36] LABS: Anion Gap 11 (5-15); BUN 61 mg/dL (7-18); BUN/Creat Ratio 29.8 RATIO (10-20); Calcium,Total 8.6 mg/dL (8.5-10.1); Chloride 97 mmol/L (98-107); Creatinine, Serum 2.05 mg/dL (0.55-1.02); EST Glomerular Filtration Rate 26 mL/min (>60); Est Glom Filt Rate - Afr Amer 31 mL/min (>60); Estimated Creatinine Clearance 24.62 ml/min; Glucose 204 mg/dL (74-106); Sodium Level 134 mmol/L (136-145)
[2021-11-08] MEDS: Insulin Lispro 100 UNIT/ML INSULN.PEN SC ×2 (08:25→11:06)
[2021-11-08] MEDS: Insulin Lispro 100 UNIT/ML INSULN.PEN 7 UNIT SC ×2 (08:25→11:06)
[2021-11-08] MEDS: dilTIAZem CD 120 MG Capsule PO (08:26)
[2021-11-08] MEDS: predniSONE 20 MG Tablet 40 MG PO (08:26)
[2021-11-08] MEDS: Enoxaparin 40 MG/0.4 ML Syringe SC (08:27)
[2021-11-08] MEDS: Metoprolol(XL)Succ 50 MG Tablet PO (08:27)
[2021-11-08] MEDS: Pantoprazole Sodium 40 MG Tablet PO (08:27)
[2021-11-08] MEDS: Insulin Glargine-YFGN 100 UNIT/ML Pen 15 UNIT SC (08:28)
[2021-11-08] MEDS: Collagenase 30gm Tube 1 APPLIC TOPICAL (08:28)
[2021-11-08] MEDS: Gabapentin 100 MG Capsule PO ×2 (08:35→11:24)
--- NOTE | 2021-11-08 08:44 | PN.CC_ITS ---
Assessment & Plan Assessment/Plan (1) Acute and chronic respiratory failure with hypoxia: PLAN: Plan RECOMMENDATIONS: 1. Continue to titrate oxygen for saturations 90 to 94% 2. Consider holding Lasix for another 24 hours 3. Continue scheduled bronchodilators and p.o. steroids with plans to wean over the next 12 to 14 days. Continue Lantus. 4. Continue diuretics as tolerated by hemodynamics and renal function. Follow-up morning labs. 5. Encourage BiPAP utilization with naps and nightly. 6. Encourage incentive spirometer use and mobilize patient as tolerated. 7. Ultimately, the patient will require outpatient pulmonary follow-up for optimization. 8. Okay to discharge from a pulmonary perspective IMPRESSIONS: 1. Acute on chronic hypoxemic respiratory failure Most likely multifactorial in etiology with possible obstructive lung disease, pulmonary hypertension and heart failure with preserved ejection fraction contributing. CTA chest showed no evidence for pulmonary embolism but revealed findings concerning for bilateral pneumonia. Continue azithromycin to complete a 5-day course. Cultures appear to be negative, but poor baseline increases risk palpitations. Continue scheduled bronchodilators and steroids. Likely wean steroids over the next 12 to 14 days. Use of BiPAP with sleep will help in her recovery. Continue to wean supplemental oxygen for saturations greater than 90%. Encourage incentive spirometer use and mobilize patient as tolerated. Okay to discharge from a pulmonary perspective 2. Pulmonary hypertension/questionable sleep apnea Unfortunately, patient did not do outpatient testing. Empiric BiPAP has been initiated. Consider continuation of BiPAP if patient goes to TCU. Patient would benefit from a sleep study soon after discharge if possible. 3. Chronic anemia/recent Proteus bacteremia/paroxysmal atrial fibril lation/hypothyroidism/morbid obesity/depression/anxiety Complicates care, management, recovery and prognosis. Continue home medications as indicated. Patient has had some decrease in hemoglobin without reported bleeding. No transfusion at this time. Lantus will be ordered for hyperglycemia, likely secondary to steroids. 4. Acute kidney injury Improving. Clinical suspicion for elevation of creatinine secondary to Lasix in the setting of polyuria secondary to elevated blood sugars. Patient was transition to prednisone yesterday. We will hold Lasix today. Patient is not currently on an ARB or LAURA inhibitor. No indication for renal replacement therapy. This note was generated with OpenXation software. It may contain incorrect words, spelling, and punctuation that were not noted in checking the note before signing. Subjective Subjective Patient did well overnight. No acute issues were reported. Patient feels subjectively slightly improved compared to yesterday. Patient is not reporting any chest pain or palpitations. Patient continues to have a periodic cough Objective Data Objective Data Vital Signs: Vital Signs Temp Pulse Resp BP Pulse Ox O2 Del Method O2 Flow Rate 36.4 C L 74 20 H 129/79 H 95 Nasal Cannula 4 11/08/21 08:17 11/08/21 08:27 11/08/21 08:17 11/08/21 08:17 11/08/21 08:17 11/08/21 08:17 11/08/21 08:17 FiO2 50 11/06/21 06:56 Oxygen Flow Rate (L/min) 4 Oxygen Delivery Method Nasal Cannula Weight: 109.2 kg Body Mass Index (BMI) 40.0 Intake & Output: Intake and Output for Last 24 Hours 11/06/21 11/07/21 11/08/21 23:59 23:59 23:59 Intake Total 1055 / 1055 1175 / 1175 Output Total 100 / 100 100 / 100 Balance 955 / 955 1175 / 1175 -100 / -100 Lab / Micro Data Attestation: I reviewed the patient's lab results. Result Diagrams: 11/08/21 05:50 11/08/21 05:50 Labs: Laboratory Results - last 24 hr 11/07/21 08:19: POC Glucose 223 H 11/07/21 11:29: POC Glucose 289 H 11/07/21 17:22: POC Glucose 206 H 11/07/21 21:32: POC Glucose 249 H 11/08/21 05:50: WBC 9.4, RBC 2.87 L, Hgb 8.2 L, Hct 26.2 L, MCV 91.3, MCH 28.6, MCHC 31.3 L, RDW Std Deviation 51.6 H, RDW Coeff of Magen 15.7 H, Plt Count 137 L, MPV 12.1 H, Immature Gran % (Auto) 0.400, Neut % (Auto) 82.3 H, Lymph % (Auto) 9.0 L, Schleicher % (Auto) 7.9, Eos % (Auto) 0.3, Baso % (Auto) 0.1, Absolute Neuts (auto) 7.7, Absolute Lymphs (auto) 0.84, Nucleated RBC % 0 11/08/21 05:50: Sodium 134 L, Potassium 4.0, Chloride 97 L, Carbon Dioxide 26.0, Anion Gap 11, BUN 61 H, Creatinine 2.05 H, Estim Creat Clear Calc 24.62, Est GFR (MDRD) Af Amer 31 L, Est GFR (MDRD) Non-Af 26 L, BUN/Creatinine Ratio 29.8 H, Glucose 204 H, Calcium 8.6 Micro: Microbiology 11/03/21 09:15 Blood Culture (Wb) - Anticubital Right Blood Culture - Final No growth in 5 days. 11/03/21 08:45 Blood Culture (Wb) - Anticubital Left Blood Culture - Final No growth in 5 days. 11/03/21 10:28 Mucosa - Nose Respiratory Panel (PCR) - Final 11/03/21 10:45 Urine, Clean Catch Streptococcus pneumoniae Antigen (M - Final 11/03/21 10:45 Urine, Clean Catch Legionella Antigen - Final 11/03/21 08:45 Nasal Secretion SARS-CoV-2 Antigen (Rapid) - Final Physical Exam Const alert, oriented x3 and no apparent distress Nutritional Appearance: obese HEENT normocephalic and head/scalp atraumatic Eyes PERRL, EOMs intact bilaterally and conjunctivae normal Neck supple General: trachea midline Chest inspection of chest normal Chest: abnormal inspection of the chest increased A-P diameter Resp normal respiratory effort and no use of accessory muscles Effort and Inspection: Negative for actively coughing Auscultation: diminished lung sounds; Negative for rales, rhonchi or wheezes Cardio regular rate, regular rhythm, S1 normal heart sound, S2 normal heart sound, no rub and no gallops Heart Sounds: murmur systolic II/ soft early right sternal border GI normal to inspection, nondistended, normoactive bowel sounds Extremity General Extremity: Negative for clubbing Skin General Skin Exam: venous stasis and dermatitis Neuro CN's II-XII intact bilaterally, moves all extremities and no focal motor deficits Psych cooperative and affect normal Charges/Coding Visit Charges Inpatient E&M: 98970 Subs Hosp L2
[2021-11-08 08:50] LABS: Bedside Glucose 203 mg/dL (74-106)
--- NOTE | 2021-11-08 10:04 | TREXTCAR_ITS ---
Diet Diet Order/Speech Therapy: 11/03/21 10:29 Diet: Cardiac: Calorie-Controlled Food consistency:: Regular Liquid Consistency:: Regular/Thin How many daily calories?: 1800 calorie Routine Orders/Code Status Enema Type: Fleetz Enema Frequency: Daily PRN Suppository Type: Dulcolax 10mg Suppository Frequency: Daily PRN O2 Liters per Minute: 4-6 O2 Frequency: Continuous Keep PO Greater than or Equal to (%): 90 Routine Lab Work: - (Weekly CBC, BMP) Code Status: DNRCC-A (no intubation) Wound(s) left heel: Wound Type: Pressure Injury Dressing Change: santyl left foot(great toe amputation site): Wound Type: surgical incision s/p amputation left great toe Dressing Change: betadine/Adaptic right heel: Wound Type: Pressure Injury Dressing Change: applied new Mepilex dressing Suggestions for Active Care Change Position every (hours): 2 Times a day to sit in chair: 3 Therapies Physical Therapy: Eval and Treat Occupational Therapy: Eval and Treat Problem/Diagnosis (1) Acute and chronic respiratory failure with hypoxia: Status: Chronic Code(s): J96.21 - Acute and chronic respiratory failure with hypoxia Allergies/Procedures Done in Hospital Allergies Sulfa (Sulfonamide Antibiotics) Allergy (Verified 11/03/21 08:07) Anaphylaxis sulfur dioxide Allergy (Verified 11/03/21 08:07) Anaphylaxis Procedures: None Type of Care/Length of Stay Estimated LOS: Convalescent Care Less Than 30 days Type of Care Needed: Skilled Rehab Potential: Fair Prognosis: Fair Additional Orders/Day of Discharge H&P will serve as current which was dated: 11/03/21 Day of Discharge: 11/08/21 Dietary and Speech Recommendations Dietitian Recommendations/Changes: RD will adjust diet to 1600kcal/Cardiac diet. Continue 120mL Glucerna TID and Say BID with medpass Discharge Plan Admission Admit Date/Time: 11/03/21 09:06 Primary Reason for Your Visit: Acute on chronic hypoxic respiratory failure Attending Provider: Lalo Cooper Primary Care Provider: Froy Gonzales Consulting Providers: Price Brower ; Juancho Tamayo ; Augie Roberts Instructions Additional Instructions / Restrictions: gently cleanse wounds to the left foot with soap and water. pat dry. apply a nickel thick layer of santyl to the left heel wound and cover with dry dressing. apply betadine moistened Adaptic to the left great toe amputation site. cover with dry dressings. please be sure to pad the heel well. wrap with kerlix. change daily and prn. apply a Mepilex dressing to the right heel. change every 5 days and prn. please offload heels at all times. Discharge Orders/Prescriptions Prescriptions: New prednisone 20 mg Tablet 40 mg PO BREAKFAST Qty: 0 0RF Rx Instructions: 40 mg for 3 days, 30 mg for 3 days, 20 mg for 3 days, 10 mg for 3 days diltiazem HCl 120 mg Capsule,Extended Release 24hr 120 mg PO DAILY Qty: 0 0RF cefdinir 300 mg Capsule 300 mg PO Q12 5 Days Qty: 0 0RF metoprolol succinate 50 mg Tablet Extended Release 24 Hr 50 mg PO BID Qty: 0 0RF Continued aspirin [Adult Aspirin Regimen] 81 mg tablet,delayed release (DR/EC) 81 mg PO DAILY levothyroxine 88 mcg Tablet 88 mcg PO DAILY trazodone 100 mg Tablet 50 mg PO QHS montelukast 10 mg Tablet 10 mg PO DAILY lorazepam 1 mg Tablet 0.5 mg PO QHS fluticasone propionate 50 mcg/actuation [place],Suspension 1 spray INTRANASAL DAILY PRN (Reason: Allergies) bupropion HCl 300 mg Tablet Extended Release 24 Hr 150 mg PO QHS fluticasone furoate-vilanterol [Breo Ellipta] 100-25 mcg/dose Blister With Device 1 inh INHALATION BID ipratropium-albuterol 0.5 mg-3 mg(2.5 mg base)/3 mL solution for nebulization 3 ml INHALATION BID PRN (Reason: sob) insulin lispro 100 unit/mL insulin pen 7 unit SUBCUT ACHS Protocol: 6. Sliding Scale Insulin Custom Condition: 151-175 Dose/Route: 5 Condition: 176-200 Dose/Route: 7 Condition: 201-250 Dose/Route: 9 Condition: 251-300 Dose/Route: 11 Condition: 301-350 Dose/Route: 13 Condition: 351-400 Dose/Route: 15 Condition: 401-450 Dose/Route: 19 Protocol Text: Custom Sliding Scale paroxetine HCl 30 mg tablet 40 mg PO QHS insulin detemir U-100 100 unit/mL (3 mL) insulin pen 30 unit SUBCUT QHS gabapentin [Neurontin] 100 mg Capsule 100 mg PO TID atorvastatin 80 mg tablet 80 mg PO QHS pantoprazole 40 mg tablet,delayed release (DR/EC) 40 mg PO BID menthol-zinc oxide [Calmoseptine] 0.44-20.6 % Ointment 1 applic TOPICAL BID sennosides [senna] 8.6 mg Tablet 17.2 mg PO BID acetaminophen 500 mg Tablet 1,000 mg PO Q8H PRN (Reason: Pain) bisacodyl 10 mg Suppository 10 mg HI DAILY PRN (Reason: Constipation) nystatin 100,000 unit/gram Powder 1 applic TOPICAL BID Santyl 250 unit/gram Ointment 1 applic TOPICAL DAILY oxycodone 5 mg Tablet 5 mg PO Q4H PRN (Reason: Pain) Say 7-7-1.5 gram Powder In Packet 1 ea PO BID potassium chloride 20 mEq Tablet Extended Release 20 meq PO BID Held furosemide 80 mg Tablet 80 mg PO DAILY Hold Instructions: Resume on 11/10/21. Discontinued amlodipine 10 mg Tablet 10 mg PO DAILY carvedilol 6.25 mg tablet 6.25 mg PO BID methylprednisolone 4 mg Tablet 0 mg PO UD doxycycline monohydrate 100 mg Tablet 100 mg PO BID ceftriaxone 1 gram Piggyback 1 g IV Q12H Referrals / Follow Up: Price Brower DO [Med Staff - Active Staff] - Within 2 Weeks Noah No DPM [Med Staff - Active Staff] - In 1 Week Froy Gonzales MD [Primary Care Provider] - In 1 Week Karyn Valladares NP, [employer] [Non-Staff -Ordering Privileges] - See Referral Note (As scheduled) Disposition Disposition (needs filled in before D/C Order can be placed): [facility]
--- NOTE | 2021-11-08 10:23 | DS.PCM_ITS ---
Documented by User: Laura Suarez NP, [employer]IS[employer] FILTERER-C 11/08/21 10:31 Providers Date of Admission: 11/03/21 Date of Discharge: 11/08/21 Primary Care Physician: Dr. Froy Gonzales MD Consultations 11/03/21 11:16 Consult: Onc/Wound/position classifier Routine Comment: Reason for Consult:: Left foot wound 11/04/21 09:29 Consult: Supervisor Press Room / Pulmonary Medicine Routine Consulting Provider: Price Brower Reason for Consult: Respiratory failure EMERGENT Consult: No MD Notified: Yes Date Notified: 11/04/21 Time Notified: 09:29 Method of Notification: Text 11/04/21 17:15 Consult: Cardiology Routine Consulting Provider: Juancho Tamayo Reason for Consult: SVT EMERGENT Consult: No Notified: Yes Date Notified: 11/04/21 Time Notified: 17:15 Method of Notification: Verbal Reason For Visit: ACUTE HYPOXIC RESPIRATORY FAILURE Diagnosis Discharge Diagnosis (1) Acute and chronic respiratory failure with hypoxia: Status: Chronic Code(s): J96.21 - Acute and chronic respiratory failure with hypoxia Medications at Discharge Home Medications bupropion HCl 300 mg 24 hr tablet, extended release 150 mg PO QHS depression 09/02/20 fluticasone furoate 100 mcg-vilanterol 25 mcg/dose inhalation powder (Breo Ellipta) 1 inh inhalation BID breathing 09/02/20 fluticasone propionate 50 mcg/actuation nasal spray,suspension 1 spray i ntranasal DAILY PRN Allergies 09/02/20 furosemide 80 mg tablet 80 mg PO DAILY water pill 09/02/20 levothyroxine 88 mcg tablet 88 mcg PO DAILY thyroid 09/02/20 lorazepam 1 mg tablet 0.5 mg PO QHS anxiety 09/02/20 montelukast 10 mg tablet 10 mg PO DAILY allergies 09/02/20 trazodone 100 mg tablet 50 mg PO QHS sleep 09/02/20 aspirin 81 mg tablet,delayed release (Adult Aspirin Regimen) 81 mg PO DAILY heart 05/17/21 gabapentin 100 mg capsule (Neurontin) 100 mg PO TID nerve pain 08/25/21 insulin detemir U-100 100 unit/mL (3 mL) subcutaneous pen 30 unit subcut QHS blood sugar 09/02/21 insulin lispro 100 unit/mL subcutaneous pen 7 unit subcut ACHS blood sugar 09/02/21 ipratropium 0.5 mg-albuterol 3 mg (2.5 mg base)/3 mL nebulization soln 3 ml inhalation BID PRN sob 09/02/21 paroxetine HCl 30 mg tablet 40 mg PO QHS mental health 09/02/21 atorvastatin 80 mg tablet 80 mg PO QHS Cholestrol 10/22/21 pantoprazole 40 mg tablet,delayed release 40 mg PO BID GERD 10/22/21 acetaminophen 500 mg tablet 1,000 mg PO Q8H PRN Pain 11/03/21 arginine 7 gram-glutamine 7 gram-calcium HMB 1.5 gram oral powder pack (Say) 1 ea PO BID 11/03/21 bisacodyl 10 mg rectal suppository 10 mg MD DAILY PRN Constipation 11/03/21 collagenase clostridium histo. 250 unit/gram topical ointment (Santyl) 1 applic topical DAILY 11/03/21 menthol 0.44 %-zinc oxide 20.6 % topical ointment (Calmoseptine) 1 applic topical BID 11/03/21 nystatin 100,000 unit/gram topical powder 1 applic topical BID 11/03/21 oxycodone 5 mg tablet 5 mg PO Q4H PRN Pain 11/03/21 potassium chloride 20 mEq tablet,extended release 20 meq PO BID 11/03/21 sennosides 8.6 mg tablet (senna) 17.2 mg PO BID 11/03/21 cefdinir 300 mg capsule 300 mg PO Q12 5 days #0 caps 11/08/21 diltiazem HCl 120 mg capsule,extended release 24 hr 120 mg PO DAILY #0 caps 11/08/21 metoprolol succinate 50 mg tablet,extended release 24 hr 50 mg PO BID #0 tabs 11/08/21 prednisone 20 mg tablet 40 mg PO BREAKFAST #0 tabs 11/08/21 Hospital Course Operations None Procedures None Summary of Care Provided Hospital Course: Patient is a 66-year-old female admitted 11/03/2021 due to shortness of breath and hypoxia. 1.? Acute on chronic hypoxic respiratory failure secondary to acute on chronic heart failure with preserved ejection fraction, hospital-acquired pneumonia- CTA with diffuse bilateral pulmonary infiltrates and small bilateral pleural effusions.? Continue supplemental oxygen to maintain O2 at above 90%. Pulmonary medicine consulted during admission. IV steroids for suspected obstructive lung disease, transition to oral prednisone taper. Patient will need outpatient follow up with pulmonary medicine for PFTs.? Continue BiPAP QHS.? Respiratory status significant improved. Now on 4 L nasal cannula. Transfer to TCU for ongoing rehab with outpatient follow-up with pulmonary medicine 2.? Hospital-acquired pneumonia- IV cefepime during admission with transition to cefdinir at discharge to complete course.? Completed 5 days of IV azithromycin.?Albuterol/DuoNeb aerosols discontinued due to SVT.? Blood cultures with no growth.? Urine for strep and Legionella negative.? Respiratory panel negative. 3.? Acute on chronic heart failure with preserved ejection fraction-recent echocardiogram with EF 55%, moderate mitral valve insufficiency, moderate tricuspid valve insufficiency.? IV Lasix discontinued due to increasing creatinine, transitioned to oral lasix however will hold due to creat trending up.? Hold Lasix another 24 hours. Trend BMP at [facility]. 4.? Chronic anemia with recent GI bleed-recent Colonoscopy without evidence of bleeding, poor prep.? EGD with esophageal plaques consistent with candidiasis, nonbleeding gastric ulcer which was biopsied.? Continue PPI.? Outpatient follow- up with GI.? Trend CBC. 5.?Recent Proteus bacteremia secondary to left great toe neuropathic infected wound-Underwent left hallux amputation 10/21/2021.? Continue dressing changes as ordered and podiatry follow-up. 6.? Suspected recent new onset atrial fibrillation-Noted during recent admission.? Did not initiate anticoagulation secondary to GI bleed.? Continue rate control regimen.? Outpatient follow-up. 7.? Paroxysmal SVT-previously received adenosine 6 mg followed by 12 mg.? Subsequently placed on Cardizem drip.? Drip discontinued and transitioned to Cardizem 120 mg daily.? Heart rate stable. Continue metoprolol. 8. Type 2 diabetes mellitus-continue home insulin regimen. 9. Hypothyroidism-continue Synthroid regimen. 10. CAD-continue medical management. 11. Hyperlipidemia-continue statin. 12. Depression/anxiety-on bupropion, Ativan, paroxetine. 13.?MIKE on Chronic kidney disease stage IIIb-diuretic regimen on hold as noted above.? Trend BMP at TCU. Resume diuretics 11/10/2021. Physical Exam Const alert and oriented x3 HEENT normocephalic and moist oral mucous membranes Eyes PERRL, EOMs intact bilaterally and conjunctivae normal Neck no lymphadenopathy Resp clear to auscultation bilaterally Auscultation: diminished lung sounds Cardio regular rate, regular rhythm and no murmurs Peripheral Pulses: pulses 2+ throughout GI normal to inspection, nondistended, normoactive bowel sounds, non-tender and non-distended Extremity normal to inspection Skin no rashes or lesions noted Skin Narrative: Recent left hallux amputation, dressing intact. Lesions: no lesions Rashes: no rashes Trauma: no lacerations or abrasions Neuro CN's II-XII intact bilaterally, no focal motor deficits, no sensory deficits noted and deep tendon reflexes 2+ bilaterally Psych mental status grossly normal and affect normal Patient seen and examined prior to discharge. Physical assessment as noted above. Patient is stable for discharge with follow up recommendations as noted above. This patient was seen by DEVON Woodward under the supervision of Dr. Cooper. Time spent examining patient, reviewing data and subsequent management of care: 27 minutes Weight / BMI Weight Weight: 240 lb 11.916 oz Body Mass Index (BMI) 40.0 ABG / Lab / Microbiology Data Result Diagrams: 11/08/21 05:50 11/08/21 05:50 Laboratory: Laboratory Results - last 24 hr 11/07/21 11:29: POC Glucose 289 H 11/07/21 17:22: POC Glucose 206 H 11/07/21 21:32: POC Glucose 249 H 11/08/21 05:50: WBC 9.4, RBC 2.87 L, Hgb 8.2 L, Hct 26.2 L, MCV 91.3, MCH 28.6, MCHC 31.3 L, RDW Std Deviation 51.6 H, RDW Coeff of Magen 15.7 H, Plt Count 137 L, MPV 12.1 H, Immature Gran % (Auto) 0.400, Neut % (Auto) 82.3 H, Lymph % (Auto) 9.0 L, [place] % (Auto) 7.9, Eos % (Auto) 0.3, Baso % (Auto) 0.1, Absolute Neuts (auto) 7.7, Absolute Lymphs (auto) 0.84, Nucleated RBC % 0 11/08/21 05:50: Sodium 134 L, Potassium 4.0, Chloride 97 L, Carbon Dioxide 26.0, Anion Gap 11, BUN 61 H, Creatinine 2.05 H, Estim Creat Clear Calc 24.62, Est GFR (MDRD) Af Amer 31 L, Est GFR (MDRD) Non-Af 26 L, BUN/Creatinine Ratio 29.8 H, Glucose 204 H, Calcium 8.6 11/08/21 08:22: POC Glucose 203 H Microbiology: Microbiology 11/03/21 09:15 Blood Culture (Wb) - Anticubital Right Blood Culture - Final No growth in 5 days. 11/03/21 08:45 Blood Culture (Wb) - Anticubital Left Blood Culture - Final No growth in 5 days. 11/03/21 10:28 Mucosa - Nose Respiratory Panel (PCR) - Final 11/03/21 10:45 Urine, Clean Catch Streptococcus pneumoniae Antigen (M - Final 11/03/21 10:45 Urine, Clean Catch Legionella Antigen - Final 11/03/21 08:45 Nasal Secretion SARS-CoV-2 Antigen (Rapid) - Final Meaningful Use Info Meaningful Use Diagnoses (Choose all that apply): CHF CHF LAURA/ARB ordered at discharge?: No Reason LAURA/ARB not ordered?: Worsening renal disease Documented LVEF (%): 55 Discharge Plan Admission Admit Date/Time: 11/03/21 09:06 Primary Reason for Your Visit: Acute on chronic hypoxic respiratory failure Attending Provider: Lalo Cooper Primary Care Provider: Froy Gonzales Consulting Providers: Price Brower ; Juancho Tamayo ; Augie Roberts Instructions Additional Instructions / Restrictions: gently cleanse wounds to the left foot with soap and water. pat dry. apply a nickel thick layer of santyl to the left heel wound and cover with dry dressing. apply betadine moistened Adaptic to the left great toe amputation site. cover with dry dressings. please be sure to pad the heel well. wrap with kerlix. change daily and prn. apply a Mepilex dressing to the right heel. change every 5 days and prn. please offload heels at all times. Discharge Orders/Prescriptions Prescriptions: New prednisone 20 mg Tablet 40 mg PO BREAKFAST Qty: 0 0RF Rx Instructions: 40 mg for 3 days, 30 mg for 3 days, 20 mg for 3 days, 10 mg for 3 days diltiazem HCl 120 mg Capsule,Extended Release 24hr 120 mg PO DAILY Qty: 0 0RF cefdinir 300 mg Capsule 300 mg PO Q12 5 Days Qty: 0 0RF metoprolol succinate 50 mg Tablet Extended Release 24 Hr 50 mg PO BID Qty: 0 0RF Continued aspirin [Adult Aspirin Regimen] 81 mg tablet,delayed release (DR/EC) 81 mg PO DAILY levothyroxine 88 mcg Tablet 88 mcg PO DAILY trazodone 100 mg Tablet 50 mg PO QHS montelukast 10 mg Tablet 10 mg PO DAILY lorazepam 1 mg Tablet 0.5 mg PO QHS fluticasone propionate 50 mcg/actuation [place],Suspension 1 spray INTRANASAL DAILY PRN (Reason: Allergies) bupropion HCl 300 mg Tablet Extended Release 24 Hr 150 mg PO QHS fluticasone furoate-vilanterol [Breo Ellipta] 100-25 mcg/dose Blister With Device 1 inh INHALATION BID ipratropium-albuterol 0.5 mg-3 mg(2.5 mg base)/3 mL solution for nebulization 3 ml INHALATION BID PRN (Reason: sob) insulin lispro 100 unit/mL insulin pen 7 unit SUBCUT ACHS Protocol: 6. Sliding Scale Insulin Custom Condition: 151-175 Dose/Route: 5 Condition: 176-200 Dose/Route: 7 Condition: 201-250 Dose/Route: 9 Condition: 251-300 Dose/Route: 11 Condition: 301-350 Dose/Route: 13 Condition: 351-400 Dose/Route: 15 Condition: 401-450 Dose/Route: 19 Protocol Text: Custom Sliding Scale paroxetine HCl 30 mg tablet 40 mg PO QHS insulin detemir U-100 100 unit/mL (3 mL) insulin pen 30 unit SUBCUT QHS gabapentin [Neurontin] 100 mg Capsule 100 mg PO TID atorvastatin 80 mg tablet 80 mg PO QHS pantoprazole 40 mg tablet,delayed release (DR/EC) 40 mg PO BID menthol-zinc oxide [Calmoseptine] 0.44-20.6 % Ointment 1 applic TOPICAL BID sennosides [senna] 8.6 mg Tablet 17.2 mg PO BID acetaminophen 500 mg Tablet 1,000 mg PO Q8H PRN (Reason: Pain) bisacodyl 10 mg Suppository 10 mg MD DAILY PRN (Reason: Constipation) nystatin 100,000 unit/gram Powder 1 applic TOPICAL BID Santyl 250 unit/gram Ointment 1 applic TOPICAL DAILY oxycodone 5 mg Tablet 5 mg PO Q4H PRN (Reason: Pain) Say 7-7-1.5 gram Powder In Packet 1 ea PO BID potassium chloride 20 mEq Tablet Extended Release 20 meq PO BID Held furosemide 80 mg Tablet 80 mg PO DAILY Hold Instructions: Resume on 11/10/21. Discontinued amlodipine 10 mg Tablet 10 mg PO DAILY carvedilol 6.25 mg tablet 6.25 mg PO BID methylprednisolone 4 mg Tablet 0 mg PO UD doxycycline monohydrate 100 mg Tablet 100 mg PO BID ceftriaxone 1 gram Piggyback 1 g IV Q12H Referrals / Follow Up: Price Brower DO [Med Staff - Active Staff] - Within 2 Weeks Noah No DPM [Med Staff - Active Staff] - In 1 Week Froy Gonzales MD [Primary Care Provider] - In 1 Week Karyn Valladares NP, [employer] FILTERER-C [Non-Staff -Ordering Privileges] - See Referral Note (As scheduled) Disposition Disposition (needs filled in before D/C Order can be placed): Detention Facility Documented by User: Dr. Lalo Cooper MD 11/08/21 13:10 Providers Date of Admission: 11/03/21 Reason For Visit: ACUTE HYPOXIC RESPIRATORY FAILURE Diagnosis Discharge Diagnosis (1) Acute and chronic respiratory failure with hypoxia: Status: Chronic Code(s): J96.21 - Acute and chronic respiratory failure with hypoxia Medications at Discharge Home Medications bupropion HCl 300 mg 24 hr tablet, extended release 150 mg PO QHS depression 09/02/20 fluticasone furoate 100 mcg-vilanterol 25 mcg/dose inhalation powder (Breo Ellipta) 1 inh inhalation BID breathing 09/02/20 fluticasone propionate 50 mcg/actuation nasal spray,suspension 1 spray i ntranasal DAILY PRN Allergies 09/02/20 furosemide 80 mg tablet 80 mg PO DAILY water pill 09/02/20 levothyroxine 88 mcg tablet 88 mcg PO DAILY thyroid 09/02/20 lorazepam 1 mg tablet 0.5 mg PO QHS anxiety 09/02/20 montelukast 10 mg tablet 10 mg PO DAILY allergies 09/02/20 trazodone 100 mg tablet 50 mg PO QHS sleep 09/02/20 aspirin 81 mg tablet,delayed release (Adult Aspirin Regimen) 81 mg PO DAILY heart 05/17/21 gabapentin 100 mg capsule (Neurontin) 100 mg PO TID nerve pain 08/25/21 insulin detemir U-100 100 unit/mL (3 mL) subcutaneous pen 30 unit subcut QHS blood sugar 09/02/21 insulin lispro 100 unit/mL subcutaneous pen 7 unit subcut ACHS blood sugar 09/02/21 ipratropium 0.5 mg-albuterol 3 mg (2.5 mg base)/3 mL nebulization soln 3 ml inhalation BID PRN sob 09/02/21 paroxetine HCl 30 mg tablet 40 mg PO QHS mental health 09/02/21 atorvastatin 80 mg tablet 80 mg PO QHS Cholestrol 10/22/21 pantoprazole 40 mg tablet,delayed release 40 mg PO BID GERD 10/22/21 acetaminophen 500 mg tablet 1,000 mg PO Q8H PRN Pain 11/03/21 arginine 7 gram-glutamine 7 gram-calcium HMB 1.5 gram oral powder pack (Say) 1 ea PO BID 11/03/21 bisacodyl 10 mg rectal suppository 10 mg MD DAILY PRN Constipation 11/03/21 collagenase clostridium histo. 250 unit/gram topical ointment (Santyl) 1 applic topical DAILY 11/03/21 menthol 0.44 %-zinc oxide 20.6 % topical ointment (Calmoseptine) 1 applic topical BID 11/03/21 nystatin 100,000 unit/gram topical powder 1 applic topical BID 11/03/21 oxycodone 5 mg tablet 5 mg PO Q4H PRN Pain 11/03/21 potassium chloride 20 mEq tablet,extended release 20 meq PO BID 11/03/21 sennosides 8.6 mg tablet (senna) 17.2 mg PO BID 11/03/21 cefdinir 300 mg capsule 300 mg PO Q12 5 days #0 caps 11/08/21 diltiazem HCl 120 mg capsule,extended release 24 hr 120 mg PO DAILY #0 caps 11/08/21 metoprolol succinate 50 mg tablet,extended release 24 hr 50 mg PO BID #0 tabs 11/08/21 prednisone 20 mg tablet 40 mg PO BREAKFAST #0 tabs 11/08/21 ABG / Lab / Microbiology Data Result Diagrams: 11/08/21 05:50 11/08/21 05:50 Discharge Plan Admission Admit Date/Time: 11/03/21 09:06 Primary Reason for Your Visit: Acute on chronic hypoxic respiratory failure Attending Provider: Lalo Cooper Primary Care Provider: Froy Gonzales Consulting Providers: Price Brower ; Juancho Tamayo ; Augie Roberts Instructions Additional Instructions / Restrictions: gently cleanse wounds to the left foot with soap and water. pat dry. apply a nickel thick layer of santyl to the left heel wound and cover with dry dressing. apply betadine moistened Adaptic to the left great toe amputation site. cover with dry dressings. please be sure to pad the heel well. wrap with kerlix. change daily and prn. apply a Mepilex dressing to the right heel. change every 5 days and prn. please offload heels at all times. Discharge Orders/Prescriptions Prescriptions: New prednisone 20 mg Tablet 40 mg PO BREAKFAST Qty: 0 0RF Rx Instructions: 40 mg for 3 days, 30 mg for 3 days, 20 mg for 3 days, 10 mg for 3 days diltiazem HCl 120 mg Capsule,Extended Release 24hr 120 mg PO DAILY Qty: 0 0RF cefdinir 300 mg Capsule 300 mg PO Q12 5 Days Qty: 0 0RF metoprolol succinate 50 mg Tablet Extended Release 24 Hr 50 mg PO BID Qty: 0 0RF Continued aspirin [Adult Aspirin Regimen] 81 mg tablet,delayed release (DR/EC) 81 mg PO DAILY levothyroxine 88 mcg Tablet 88 mcg PO DAILY trazodone 100 mg Tablet 50 mg PO QHS montelukast 10 mg Tablet 10 mg PO DAILY lorazepam 1 mg Tablet 0.5 mg PO QHS fluticasone propionate 50 mcg/actuation [place],Suspension 1 spray INTRANASAL DAILY PRN (Reason: Allergies) bupropion HCl 300 mg Tablet Extended Release 24 Hr 150 mg PO QHS fluticasone furoate-vilanterol [Breo Ellipta] 100-25 mcg/dose Blister With Device 1 inh INHALATION BID ipratropium-albuterol 0.5 mg-3 mg(2.5 mg base)/3 mL solution for nebulization 3 ml INHALATION BID PRN (Reason: sob) insulin lispro 100 unit/mL insulin pen 7 unit SUBCUT ACHS Protocol: 6. Sliding Scale Insulin Custom Condition: 151-175 Dose/Route: 5 Condition: 176-200 Dose/Route: 7 Condition: 201-250 Dose/Route: 9 Condition: 251-300 Dose/Route: 11 Condition: 301-350 Dose/Route: 13 Condition: 351-400 Dose/Route: 15 Condition: 401-450 Dose/Route: 19 Protocol Text: Custom Sliding Scale paroxetine HCl 30 mg tablet 40 mg PO QHS insulin detemir U-100 100 unit/mL (3 mL) insulin pen 30 unit SUBCUT QHS gabapentin [Neurontin] 100 mg Capsule 100 mg PO TID atorvastatin 80 mg tablet 80 mg PO QHS pantoprazole 40 mg tablet,delayed release (DR/EC) 40 mg PO BID menthol-zinc oxide [Calmoseptine] 0.44-20.6 % Ointment 1 applic TOPICAL BID sennosides [senna] 8.6 mg Tablet 17.2 mg PO BID acetaminophen 500 mg Tablet 1,000 mg PO Q8H PRN (Reason: Pain) bisacodyl 10 mg Suppository 10 mg MD DAILY PRN (Reason: Constipation) nystatin 100,000 unit/gram Powder 1 applic TOPICAL BID Santyl 250 unit/gram Ointment 1 applic TOPICAL DAILY oxycodone 5 mg Tablet 5 mg PO Q4H PRN (Reason: Pain) Say 7-7-1.5 gram Powder In Packet 1 ea PO BID potassium chloride 20 mEq Tablet Extended Release 20 meq PO BID Held furosemide 80 mg Tablet 80 mg PO DAILY Hold Instructions: Resume on 11/10/21. Discontinued amlodipine 10 mg Tablet 10 mg PO DAILY carvedilol 6.25 mg tablet 6.25 mg PO BID methylprednisolone 4 mg Tablet 0 mg PO UD doxycycline monohydrate 100 mg Tablet 100 mg PO BID ceftriaxone 1 gram Piggyback 1 g IV Q12H Referrals / Follow Up: Price Brower DO [Med Staff - Active Staff] - Within 2 Weeks Noah No DPM [Med Staff - Active Staff] - In 1 Week Froy Gonzales MD [Primary Care Provider] - In 1 Week Karyn Valladares WHISKEY FILTERER, [employer]KEY FILTERER-C [Non-Staff -Ordering Privileges] - See Referral Note (As scheduled) Disposition Disposition (needs filled in before D/C Order can be placed): Detention Facility Charges/Coding Addendum Addendum: Dr. Cooper I personally examined the patient and reviewed the chart. I agree with the above. 66-year-old female who presented to the hospital with shortness of breath.? She was originally in TCU and the day prior to her admission she had an [employer] [place] [place] called for shortness of breath.? While in TCU she went from needing 3 L nasal cannula for oxygen up to 8 L nasal cannula.? She was given multiple doses of IV Lasix without any significant improvement therefore she was transferred to the ER.? Cardiology was consulted acute on chronic diastolic heart failure as well as her A. fib and SVT.? She has slowly improved during her stay and currently we are attempting to obtain pre-CERT for discharge back to the SNF.? She appears to be down about 6 pounds with diuresis.? She did receive adenosine as well for SVT and is currently on Cardizem which she seems to be tolerating.? She is also on cefepime for hospital-acquired pneumonia, she did complete 5 days of azithromycin.? Clinical time spent in all aspects of patient care: 20 minutes 11/08/2021: She is feeling much better today and is breathing a bit better. Yesterday her Lasix were held secondary to a bump in her creatinine which has improved. Would recommend restarting Lasix tomorrow on discharge. Would recommend close outpatient monitoring of her renal function while in the transitional care unit. Of note given her pulmonary hypertension as well as possible sleep apnea would highly recommend nightly BiPAP in the transitional care unit as well as during the day whenever she naps. I discussed with her the plan for discharge today and she expressed understanding of the risk and benefits of going to the SNF and would like to go today. Clinical time spent in all aspects of patient care including discharge plannin minutes Visit Charges Inpatient E&M: 04927 Disch Hosp
[2021-11-08] MEDS: Furosemide 20 MG Tablet 60 MG PO (10:33)
--- NOTE | 2021-11-08 10:39 | PN_ITS ---
Subjective Subjective Patient is seen bedside today resting comfortably. She is seen s/p left hallux amputation. She states she is feeling better and is now off of BiPAP. She denies any constitutional symptoms today. She denies any further complaints today. Objective Data Objective Data Vital Signs: Vital Signs Temp Pulse Resp BP Pulse Ox O2 Del Method O2 Flow Rate 97.5 F L 74 20 H 129/79 H 95 Nasal Cannula 4 11/08/21 08:17 11/08/21 08:27 11/08/21 10:27 11/08/21 08:17 11/08/21 08:17 11/08/21 08:17 11/08/21 08:17 FiO2 50 11/06/21 06:56 Oxygen Flow Rate (L/min) 4 Oxygen Delivery Method Nasal Cannula Weight: 109.2 kg Body Mass Index (BMI) 40.0 Intake & Output: Intake and Output for Last 24 Hours 11/06/21 11/07/21 11/08/21 23:59 23:59 23:59 Intake Total 1055 / 1055 1175 / 1175 Output Total 100 / 100 100 / 100 Balance 955 / 955 1175 / 1175 -100 / -100 Lab / Micro Data Result Diagrams: 11/08/21 05:50 11/08/21 05:50 Labs: Laboratory Results - last 24 hr 11/07/21 11:29: POC Glucose 289 H 11/07/21 17:22: POC Glucose 206 H 11/07/21 21:32: POC Glucose 249 H 11/08/21 05:50: WBC 9.4, RBC 2.87 L, Hgb 8.2 L, Hct 26.2 L, MCV 91.3, MCH 28.6, MCHC 31.3 L, RDW Std Deviation 51.6 H, RDW Coeff of Magen 15.7 H, Plt Count 137 L, MPV 12.1 H, Immature Gran % (Auto) 0.400, Neut % (Auto) 82.3 H, Lymph % (Auto) 9.0 L, Carver % (Auto) 7.9, Eos % (Auto) 0.3, Baso % (Auto) 0.1, Absolute Neuts (auto) 7.7, Absolute Lymphs (auto) 0.84, Nucleated RBC % 0 11/08/21 05:50: Sodium 134 L, Potassium 4.0, Chloride 97 L, Carbon Dioxide 26.0, Anion Gap 11, BUN 61 H, Creatinine 2.05 H, Estim Creat Clear Calc 24.62, Est GFR (MDRD) Af Amer 31 L, Est GFR (MDRD) Non-Af 26 L, BUN/Creatinine Ratio 29.8 H, Glucose 204 H, Calcium 8.6 11/08/21 08:22: POC Glucose 203 H Micro: Microbiology 11/03/21 09:15 Blood Culture (Wb) - Anticubital Right Blood Culture - Final No growth in 5 days. 11/03/21 08:45 Blood Culture (Wb) - Anticubital Left Blood Culture - Final No growth in 5 days. 11/03/21 10:28 Mucosa - Nose Respiratory Panel (PCR) - Final 11/03/21 10:45 Urine, Clean Catch Streptococcus pneumoniae Antigen (M - Final 11/03/21 10:45 Urine, Clean Catch Legionella Antigen - Final 11/03/21 08:45 Nasal Secretion SARS-CoV-2 Antigen (Rapid) - Final Physical Exam Const alert, oriented x3 and no apparent distress General Appearance: comfortable HEENT normocephalic Eyes General Eye: normal appearance of both eyes Neck General: normal visual inspection Lymph Lymphatic: no lymphadenopathy noted and no lymphedema noted Resp normal respiratory effort Cardio regular rate and regular rhythm Extremity no joint enlargement, no calf tenderness and no pedal edema Peripheral Pulses: Yes posterior tibial pulses present; Negative for dorsalis pedis pulses present Skin no rashes or lesions noted, skin turgor normal and no jaundice Skin Narrative: Resolving rubor secondary to swelling about the surgical site at the first me tatarsal head of the left foot Wound Narrative: Sutures intact at left hallux amputation stump there is a small central area of serosanguineous drainage at the incision site. Left heel decubitus ulceration with stable eschar and no local signs of inf ection. 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 She does admit to some pain in the left foot secondary to swelling. Site was inspected, sutures are intact to the left hallux amputation stump site.? No signs of infection. There is rubor about the incision site and first metatarsal head without increased temperature, this is subsiding.? There is a slight serosanguineous drainage from the central aspect of the incision site secondary to swelling.? No purulent drainage, no malodor, no palpable fluctuance. At this point in time her amputation stump site looks well in terms of healing progress and there is no evidence of necrotic tissue about the incision site. She does have a small area of of ecchymosis at the dorsomedial aspect of the first metatarsal head.? I will continue to watch the site for any changes however this remained stable currently. Dressings changed consisted of Betadine soaked Adaptic, 4 x 4 gauze, ABD, Kerlix, and an Kenny wrap rolled onto the foot. Santyl applied to left heel and dressed with Adaptic 4 x 4 gauze and an ABD and Kerlix. Surgery 10/21/2021: Secondary to her dry gangrene there was also a portion of exposed bone/joint capsule of the proximal phalanx head secondary to amount of tissue at the left hallux, tissue and bone were cultured and sent to micro & pathology. Surgical cultures 10/21/2021: Tissue culture left hallux demonstrates Proteus Mirabilis.? Bone culture left hallux demonstrates Proteus Mirabilis. Last WBC was 9.4 and within normal limits on 11/08/2021. Will continue to evaluate.? She is currently on IV ceftriaxone and oral doxycycline 100 mg twice daily.? I feel that the recent rubor is related to continued edema from having a dependent position creating swelling about the incision site.? I again stressed with patient and nursing staff that she needs to continue to elevate the left lower extremity at all times of rest as continued swelling the lower dehiscence of the surgical site. Nursing may change dressings daily.? May apply Santyl to the left heel daily.? I discussed continued offloading of the left heel in a waffle boot/Prevalon boot for treatment of left heel decubitus ulceration x2. Patient may be partial weightbearing to the left heel? in a surgical shoe for therapy sessions and bathroom privileges. She may continue her current pain management of oxyir as needed. She is elevate the left foot at all times of rest to control postoperative edema I will continue to follow while in house for continued postsurgical care. At the time of discharge she is recommended to follow-up with me in the wound care center for her left heel ulcer. Jr. Abelino Morgan.P.M. [facility] [phone] Note: [email or web address] speech recognition non morse intercept technician software was used to create portions of this document. Sound-alike and misspelled words, as well as other non morse intercept technician errors may be contained in the documentation.
--- NOTE | 2021-11-08 11:11 | PHA.DC.MR ---
Pharmacy Service has performed discharge medication reconciliation for this patient. The patient's discharge medication list was reviewed for discrepancies and discrepancies were resolved. Home Medications bupropion HCl 300 mg 24 hr tablet, extended release 150 mg PO QHS depression 09/02/20 fluticasone furoate 100 mcg-vilanterol 25 mcg/dose inhalation powder (Breo Ellipta) 1 inh inhalation BID breathing 09/02/20 fluticasone propionate 50 mcg/actuation nasal spray,suspension 1 spray intranasal DAILY PRN Allergies 09/02/20 furosemide 80 mg tablet 80 mg PO DAILY water pill 09/02/20 levothyroxine 88 mcg tablet 88 mcg PO DAILY thyroid 09/02/20 lorazepam 1 mg tablet 0.5 mg PO QHS anxiety 09/02/20 montelukast 10 mg tablet 10 mg PO DAILY allergies 09/02/20 trazodone 100 mg tablet 50 mg PO QHS sleep 09/02/20 aspirin 81 mg tablet,delayed release (Adult Aspirin Regimen) 81 mg PO DAILY heart 05/17/21 gabapentin 100 mg capsule (Neurontin) 100 mg PO TID nerve pain 08/25/21 insulin detemir U-100 100 unit/mL (3 mL) subcutaneous pen 30 unit subcut QHS blood sugar 09/02/21 insulin lispro 100 unit/mL subcutaneous pen 7 unit subcut ACHS blood sugar 09/02/21 ipratropium 0.5 mg-albuterol 3 mg (2.5 mg base)/3 mL nebulization soln 3 ml inhalation BID PRN sob 09/02/21 paroxetine HCl 30 mg tablet 40 mg PO QHS mental health 09/02/21 atorvastatin 80 mg tablet 80 mg PO QHS Cholestrol 10/22/21 pantoprazole 40 mg tablet,delayed release 40 mg PO BID GERD 10/22/21 acetaminophen 500 mg tablet 1,000 mg PO Q8H PRN Pain 11/03/21 arginine 7 gram-glutamine 7 gram-calcium HMB 1.5 gram oral powder pack (Say) 1 ea PO BID 11/03/21 bisacodyl 10 mg rectal suppository 10 mg IN DAILY PRN Constipation 11/03/21 collagenase clostridium histo. 250 unit/gram topical ointment (Santyl) 1 applic topical DAILY 11/03/21 menthol 0.44 %-zinc oxide 20.6 % topical ointment (Calmoseptine) 1 applic topical BID 11/03/21 nystatin 100,000 unit/gram topical powder 1 applic topical BID 11/03/21 oxycodone 5 mg tablet 5 mg PO Q4H PRN Pain 11/03/21 potassium chloride 20 mEq tablet,extended release 20 meq PO BID 11/03/21 sennosides 8.6 mg tablet (senna) 17.2 mg PO BID 11/03/21 cefdinir 300 mg capsule 300 mg PO Q12 5 days #0 caps 11/08/21 diltiazem HCl 120 mg capsule,extended release 24 hr 120 mg PO DAILY #0 caps 11/08/21 metoprolol succinate 50 mg tablet,extended release 24 hr 50 mg PO BID #0 tabs 11/08/21 prednisone 20 mg tablet 40 mg PO BREAKFAST #0 tabs 11/08/21
[2021-11-08 11:41] LABS: Bedside Glucose 280 mg/dL (74-106)
--- NOTE | 2021-11-08 12:35 | NURSING ---
Attempted to call TCU, banquet houseperson took call, will notify sintering plant supervisor to call this RN back for report
--- NOTE | 2021-11-08 12:58 | NURSING ---
Called TCU again- staff states RNs are at lunch at this time. Will call back.
== END 2021-11-08 15:10 | DRG 193 ==
LOC: ED 09:09 → PCU 09:34
PROVIDERS: Nurse Practitioner Family; Admitting Provider Internal Medicine; Emergency Provider Emergency Medicine; PCP Family Medicine; Visit Provider Family Medicine
DX: J18.9 Pneumonia, unspecified organism (principal); J96.21 Acute and chronic respiratory failure with hypoxia; I26.99 Other pulmonary embolism without acute cor pulmonale; I50.33 Acute on chronic diastolic (congestive) heart failure; I47.1 Supraventricular tachycardia; N17.9 Acute kidney failure, unspecified; I13.0 Hypertensive heart and chronic kidney disease with heart failure and stage 1 through stage 4 chronic kidney disease, or unspecified chronic kidney disease; J44.0 Chronic obstructive pulmonary disease with (acute) lower respiratory infection; Z68.41 Body mass index [BMI] 40.0-44.9, adult; I27.20 Pulmonary hypertension, unspecified; D63.8 Anemia in other chronic diseases classified elsewhere; I48.0 Paroxysmal atrial fibrillation; E11.22 Type 2 diabetes mellitus with diabetic chronic kidney disease; N18.32 Chronic kidney disease, stage 3b; Z79.4 Long term (current) use of insulin; E11.42 Type 2 diabetes mellitus with diabetic polyneuropathy; E66.01 Morbid (severe) obesity due to excess calories; E11.65 Type 2 diabetes mellitus with hyperglycemia; L89.622 Pressure ulcer of left heel, stage 2; E11.621 Type 2 diabetes mellitus with foot ulcer; Z89.412 Acquired absence of left great toe; L89.619 Pressure ulcer of right heel, unspecified stage; I25.10 Atherosclerotic heart disease of native coronary artery without angina pectoris; E03.9 Hypothyroidism, unspecified; E78.5 Hyperlipidemia, unspecified; F41.9 Anxiety disorder, unspecified; G47.33 Obstructive sleep apnea (adult) (pediatric); I08.1 Rheumatic disorders of both mitral and tricuspid valves; I25.2 Old myocardial infarction; R41.0 Disorientation, unspecified; Z87.891 Personal history of nicotine dependence; F32.A Depression, unspecified; Y95 Nosocomial condition; Z66 Do not resuscitate; Z20.822 Contact with and (suspected) exposure to COVID-19; Z99.81 Dependence on supplemental oxygen; Z79.82 Long term (current) use of aspirin; Z79.890 Hormone replacement therapy; Z79.899 Other long term (current) drug therapy; Z79.52 Long term (current) use of systemic steroids; Z95.5 Presence of coronary angioplasty implant and graft
CPT/HCPCS: 36415; 71045; 71275; 80048; 81001; 82962; 83735; 83880; 84100; 84443; 84484; 85014; 85018; 85025; 87040; 87086; 87088; 87426; 87449; 87633; 87641; 87811; 93005; 94002; 94003; 94640; 94762; 97110; 97162; 97166; 97530; 97535; 97802; 99251; 99282; 99284; J7040; Q9967; A4216; G0463; J0153; J1940; J2405

== ENCOUNTER 2021-11-08 15:11 | Inpatient (IN) | payer MEDICARE, MEDICAID, SELFPAY ==
[2021-11-08 15:18] VITALS: BP 143/68; PULSE 72; RESP 20; TEMP 36.5; O2SAT 97; BMI 39.4
[2021-11-08 17:40] LABS: Bedside Glucose 247 mg/dL (74-106)
[2021-11-08 18:00] VITALS: PULSE 75; RESP 18; O2SAT 91
[2021-11-08] MEDS: Potassium Chloride Oral Tablet 20 MEQ PO (18:29)
[2021-11-08] MEDS: Cefdinir 300 MG Capsule PO (18:29)
[2021-11-08] MEDS: Juven (unflavored) Packet 1 PACKET PO (18:29)
[2021-11-08] MEDS: Pantoprazole Sodium 40 MG Tablet PO (18:29)
[2021-11-08 18:30] VITALS: PULSE 72
[2021-11-08] MEDS: Senna Tablet 1 TABLET PO (18:30)
[2021-11-08] MEDS: Nystatin Powder 15gm Bottle 1 APPLIC TOPICAL (18:30)
[2021-11-08] MEDS: Menthol/Lanolin/Calamine/Znox 113 GM Tube 1 APPLIC TOPICAL (18:30)
[2021-11-08] MEDS: Metoprolol(XL)Succ 50 MG Tablet PO (18:30)
[2021-11-08 20:30] VITALS: PULSE 78; RESP 24; O2SAT 87
[2021-11-08] MEDS: Ipratropium 0.5 MG/2.5 ML SOLUTION INHALATION (20:30)
[2021-11-08 20:45] VITALS: O2SAT 93
--- NOTE | 2021-11-08 21:06 | HP.PCM_ITS ---
HPI - General General Date of Admission: 11/08/21 Date of Service: 11/08/21 Chief Complaint: Here for rehab. HPI Narrative 11/03/2021 SONA WILSON, is a 66 Female who presents to [facility] Emergency Department with shortness of breath. TCU resident short of breath, acute respiratory failure with hypoxia, worsening shortness of breath x 2 days. CTA chest negative pulmonary embolism. CTA chest shows bilateral pleural effusion, congestive heart failure versus pneumonia requiring BiPAP. BiPAP FiO2 30% applied, breathing easier. Troponin 18, BNP 211. Zosyn, Vancomycin, Lasix given for pneumonia, congestive heart failure. 11/03/2021 Admit to Hospital. BiPAP, oxygen for acute respiratory failure with hypoxia. Azithromycin, Vancomycin, Cefepime, sputum culture, blood culture urinary antigens strep, legionella for hospital acquired pneumonia. IV Lasix for acute on chronic diastolic congestive heart failure. 11/04/2021 Adenosine, cardizem drip for SVT. 11/05/2021 Breathing improved, heart rate improved. IV steroids for COPD. Blood culture negative, urine strep negative, urine legionella negative, respiratory panel negative. Cardizem 120mg daily for SVT. 11/06/2021 Feels better overall. Oxygen improved to 4 liters per nasal cannula. IV Lasix transitioned to Lasix 60mg po bid 03/30 to increasing creatinine. 11/07/2021 Transition IV steroid to oral prednisone. Hold Lasix due to worsening creatinine. Cefepime IV for hospital acquired pneumonia. 11/08/2021 Admit to TCU with debility, here for rehabilitation, strengthening, prior to discharge home to [facility]. [facility] Medical History Acute cervical myofascial strain Acute on chronic respiratory failure with hypoxemia Amputated toe of left foot Anemia Asthma Atherosclerotic heart disease of [place] coronary artery without angina pectoris Atrial fibrillation CAD (coronary artery disease) Chronic heart failure with preserved ejection fraction (HFpEF) Chronic heel ulcer Chronic respiratory failure with hypoxia, on home oxygen therapy Chronic ulcer of great toe of left foot Closed head injury Congestive heart failure (CHF) COPD (chronic obstructive pulmonary disease) Decubitus ulcer of dorsum of foot, stage 2 Decubitus ulcer of left heel, stage 2 Decubitus ulcer of left heel, stage 3 Decubitus ulcer, heel, left, unstageable Depression Diabetes mellitus with diabetic polyneuropathy Diabetes type 2, controlled Diabetic foot ulcers Diverticulitis Essential hypertension Former smoker History of amputation of left great toe History of non-ST elevation myocardial infarction (NSTEMI) (02/24/17) Hyperlipidemia Hypothyroid Myocardial infarct Non-rheumatic tricuspid valve insufficiency Nondisplaced fracture of distal phalanx of right great toe, initial encounter for closed fracture Nonrheumatic mitral (valve) insufficiency Obesity Obstructive sleep apnea On home O2 Renal insufficiency Secondary pulmonary arterial hypertension Type 2 diabetes mellitus Home Medications bupropion HCl 300 mg 24 hr tablet, extended release 150 mg PO QHS depression 09/02/20 [History Last Taken 10/13/21] fluticasone furoate 100 mcg-vilanterol 25 mcg/dose inhalation powder (Breo Ellipta) 1 inh inhalation BID breathing 09/02/20 [History Last Taken 10/14/21] fluticasone propionate 50 mcg/actuation nasal spray,suspension 1 spray intranasal DAILY PRN Allergies 09/02/20 [History Last Taken 09/02/20] furosemide 80 mg tablet 80 mg PO DAILY water pill 09/02/20 [History Last Taken 10/14/21] levothyroxine 88 mcg tablet 88 mcg PO DAILY thyroid 09/02/20 [History Last Taken 10/14/21] lorazepam 1 mg tablet 0.5 mg PO QHS anxiety 09/02/20 [History Last Taken 10/13/21] montelukast 10 mg tablet 10 mg PO DAILY allergies 09/02/20 [History Last Taken 10/14/21] trazodone 100 mg tablet 50 mg PO QHS sleep 09/02/20 [History Last Taken 10/13/21] aspirin 81 mg tablet,delayed release (Adult Aspirin Regimen) 81 mg PO DAILY heart 05/17/21 [History Last Taken 10/14/21 09:30] gabapentin 100 mg capsule (Neurontin) 100 mg PO TID nerve pain 08/25/21 [History Last Taken 10/14/21] insulin detemir U-100 100 unit/mL (3 mL) subcutaneous pen 30 unit subcut QHS blood sugar 09/02/21 [History Last Taken 10/13/21] insulin lispro 100 unit/mL subcutaneous pen 7 unit subcut ACHS blood sugar 09/02/21 [History Last Taken 10/14/21] ipratropium 0.5 mg-albuterol 3 mg (2.5 mg base)/3 mL nebulization soln 3 ml inhalation BID PRN sob 09/02/21 [History Last Taken Unknown] paroxetine HCl 30 mg tablet 40 mg PO QHS mental health 09/02/21 [History Last Taken 10/13/21] atorvastatin 80 mg tablet 80 mg PO QHS Cholestrol 10/22/21 [History Last Taken Unknown] pantoprazole 40 mg tablet,delayed release 40 mg PO BID GERD 10/22/21 [History Last Taken Unknown] acetaminophen 500 mg tablet 1,000 mg PO Q8H PRN Pain 11/03/21 [History Last Taken Unknown] arginine 7 gram-glutamine 7 gram-calcium HMB 1.5 gram oral powder pack (Say) 1 ea PO BID wound healing 11/03/21 [History Last Taken Unknown] bisacodyl 10 mg rectal suppository 10 mg ND DAILY PRN Constipation 11/03/21 [History Last Taken Unknown] collagenase clostridium histo. 250 unit/gram topical ointment (Santyl) 1 applic topical DAILY wound 11/03/21 [History Last Taken Unknown] menthol 0.44 %-zinc oxide 20.6 % topical ointment (Calmoseptine) 1 applic topical BID buttocks 11/03/21 [History Last Taken Unknown] nystatin 100,000 unit/gram topical powder 1 applic topical BID skin irritation 11/03/21 [History Last Taken Unknown] oxycodone 5 mg tablet 5 mg PO Q4H PRN Pain 11/03/21 [History Last Taken Unknown] potassium chloride 20 mEq tablet,extended release 20 meq PO BID supplement 11/03/21 [History Last Taken Unknown] sennosides 8.6 mg tablet (senna) 17.2 mg PO BID stool softener 11/03/21 [History Last Taken Unknown] cefdinir 300 mg capsule 300 mg PO Q12 ATB 11/08/21 [History Last Taken Unknown] diltiazem HCl 120 mg capsule,extended release 24 hr 120 mg PO DAILY heart 11/08/21 [History Last Taken Unknown] metoprolol succinate 50 mg tablet,extended release 24 hr 50 mg PO BID BP 11/08/21 [History Last Taken Unknown] prednisone 20 mg tablet 40 mg PO BREAKFAST antiinflammatory 11/08/21 [History Last Taken Unknown] Allergy/AdvReac Type Severity Reaction Status Date / Time Sulfa (Sulfonamide Allergy Anaphylaxis Verified 11/03/21 08:07 Antibiotics) sulfur dioxide Allergy Anaphylaxis Verified 11/03/21 08:07 Family History Grandmother Diabetes Mother Heart disease Surgical History H/O right heart catheterization History of cataract surgery History of coronary artery stent placement (02/24/17) Tubal ligation status Social History household members: none housing: other details: [facility] Living. Smoking Status: Former smoker how long ago did patient quit smokin alcohol intake: former year quit: 1999 substance use type: does not use caffeine: Yes Type: carbonated beverages and tea ROS Constitutional Constitutional: Denies chills, fever(s) or weight gain ENT HEENT: Denies headache(s), nasal congestion or nasal discharge Cardiovascular Cardiovascular: Denies chest pain or palpitations Respiratory/Chest Respiratory/Chest: Denies cough, excessive phlegm production or shortness of breath with exertion Gastrointestinal Gastrointestinal: Denies abdominal pain, nausea or vomiting Genitourinary Genitourinary: Denies dysuria Musculoskeletal Musculoskeletal: Denies joint pain or joint swelling Integumentary Integumentary: Denies rash or wounds Neurologic Neurologic: Denies focal weakness, numbness or tingling Psychiatric Psychiatric: Denies anxiety, auditory hallucinations, depression, homicidal i deation or suicidal ideation Vital Signs Vital Signs Vital Signs: 11/08/21 15:18 11/08/21 18:30 11/08/21 18:00 Temperature 97.7 F L Temperature Source Temporal Pulse Rate 72 72 75 Pulse Rhythm Regular Pulse Strength Normal (2+) Respiratory Rate 20 H 18 Respiratory Effort Normal Respiratory Depth Normal Respiratory Pattern Normal Blood Pressure 143/68 H Blood Pressure Mean 93 Blood Pressure Source Monitor Blood Pressure Position Sitting Blood Pressure Location Right Arm Pulse Ox 97 91 Oxygen Delivery Method Nasal Cannula Nasal Cannula Oxygen Flow Rate (L/min) 5 4 Weight Weight: 107.53 kg Body Mass Index (BMI) 39.4 Physical Exam Const alert General Appearance: cooperative HEENT normocephalic Eyes PERRL and EOMs intact bilaterally Neck supple, no JVD and no carotid bruits Resp normal respiratory effort, normal air movement and clear to auscultation bilaterally Cardio regular rate and regular rhythm GI normal to inspection, nondistended, normoactive bowel sounds, non-tender and non-distended Extremity normal capillary refill General Extremity: Negative for edema Skin no rashes or lesions noted General Skin Exam: no breakdown Psych affect normal Appearance: appropriate Results Lab / Micro Data Labs: Laboratory Results - last 24 hr 11/08/21 17:00: POC Glucose 247 H Assessment & Plan Assessment/Plan (1) Debility: (2) Acute respiratory failure with hypoxia: (3) Hospital-acquired pneumonia: (4) SVT (supraventricular tachycardia): (5) Atrial fibrillation: (6) Acute on chronic diastolic congestive heart failure: (7) Chronic obstructive pulmonary disease: (8) Hypertension: (9) Coronary artery disease: (10) Hyperlipidemia: (11) Depression: (12) Diabetes mellitus: (13) Allergic rhinitis: (14) Hypothyroidism: (15) Diabetic polyneuropathy: (16) Anxiety: (17) Gastroesophageal reflux disease: (18) Insomnia: PLAN: Plan 66 year old female with below past medical history hospitalized for acute respiratory failure with hypoxia secondary to hospital acquired pneumonia, complicated by acute on chronic diastolic congestive heart failure, SVT, acute kidney injury, admitted to TCU with debility, here for rehabilitation, strengthening, prior to discharge to [facility]. * Debility - PT/OT. * Pain - Tylenol 1000mg q6h prn pain (1-3), Oxycodone 5mg q4h prn pain (4-10). * Bowel - Senokot 1 tablet bid, Dulcolax 10mg daily pr. * Adult immunization - Administer pneumonia vaccine, covid19 vaccine, flu vaccine as appropriate. * DVT prophylaxis - Hold, anemia. * CV prophylaxis - Aspirin 81mg daily. * Hyperlipidemia - Atorvastatin 80mg qhs. 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 * Hospital acquired pneumonia - Cefdinir 300mg q12 thru 11/13/2021, Prednisone 40mg daily thru 11/19/2021. * Wound - Santyl topical daily. * SVT - Metoprolol succinate 50mg bid, Diltiazem 120mg daily. * Allergic Rhinitis - Singulair 10mg daily, Flonase 1 spray nasal daily, Atrovent 0.5mg q4h prn. * Chronic diastolic congestive heart failure - Metoprolol succinate 50mg bid, Furosemide 80mg daily. * Diabetic neuropathy - Gabapentin 100mg tid. * Diabetes Mellitus II - Glargine 30 units qhs, Humalog 7 units qachs. * Insomnia - Trazodone 50mg qhs, Lorazepam 0.5mg qhs prn. * Nutrition - Say 1 packet bid. * Hypothyroidism - Levothyroxine 88mcg daily. * Tinea Corporis - Nystatin powder topical bid. * GERD - Pantoprazole 40mg bid. * Hypokalemia - KCL 20meq bid.
[2021-11-08] MEDS: LORazepam 0.5 MG Tablet PO (21:08)
[2021-11-08] MEDS: oxyCODONE 5 MG Tablet PO (21:08)
[2021-11-08] MEDS: traZODone 50 MG Tablet PO (21:09)
[2021-11-08] MEDS: Atorvastatin Calcium 80 MG Tablet PO (21:09)
[2021-11-08] MEDS: Insulin Glargine-YFGN 100 UNIT/ML Pen 30 UNIT SC (21:10)
[2021-11-08] MEDS: buPROPion (XL) 150 MG TABLET.XL PO (21:10)
[2021-11-08] MEDS: Paroxetine 20 MG Tablet 40 MG PO (21:10)
[2021-11-08] MEDS: Gabapentin 100 MG Capsule PO (21:21)
[2021-11-08 21:35] LABS: Bedside Glucose 366 mg/dL (74-106)
[2021-11-08 22:00] VITALS: BP 141/83; PULSE 86; RESP 20; O2SAT 92
--- NOTE | 2021-11-08 22:12 | NURSING ---
Patient very anxious this HS. Frequent 1:1, yelling help me help me I can't breath. RT up to administer PRN aerosol and increased patient 02 to 8L high corinne. contacted due to patient continued yelling out and anxiety and statement of unable to breath and expressing anxiety despite RTN ativan and HS medications administered, 1:1 and repositioning, increased O2 and aersol. Clarification received regarding humalog order. New orders received. 1. Give Ativan 1mg x1 dose on top of the 0.5mg already administered 2.change HS ativan to Ativan 1mg QHS 3.Ativan PO 1mg Q4h PRN anxiety 4. D\c humalog sliding scale and current humalog order 5.Give Humalog 15units SC x1 now for blood glucose 366 6.Humalog 7units SC with meals All orders repeated back to
[2021-11-08] MEDS: LORazepam 1 MG Tablet PO (23:00)
[2021-11-08] MEDS: Insulin Lispro 100 UNIT/ML INSULN.PEN 15 UNIT SC (23:03)
[2021-11-09] VITALS (8 sets, daily range): BP systolic 135–158; BP diastolic 62–74; PULSE 65–80; RESP 18–20; TEMP 36.4; O2SAT 90–97
--- NOTE | 2021-11-09 01:32 | NURSING ---
Addendum entered by Susu Jennings 11/09/21 01:33: No s/sx anxiety observed or reported at this time Original Note: Presents in recliner per preference with eyes closed, resps even and unlabored. O2 on via NC @97 at 8LPM. Television on per preference. Call light in reach. No distress observed or reported.
[2021-11-09] MEDS: oxyCODONE 5 MG Tablet PO (04:23)
[2021-11-09] MEDS: 0.9% Saline Lock 10 ML Syringe IV (04:23)
[2021-11-09] MEDS: Nystatin Powder 15gm Bottle 1 APPLIC TOPICAL ×2 (04:28→17:33)
[2021-11-09] MEDS: Menthol/Lanolin/Calamine/Znox 113 GM Tube 1 APPLIC TOPICAL ×2 (04:30→17:33)
[2021-11-09] MEDS: Juven (unflavored) Packet 1 PACKET PO ×2 (05:56→17:22)
[2021-11-09] MEDS: Senna Tablet 1 TABLET PO ×2 (05:56→17:23)
[2021-11-09] MEDS: Levothyroxine 88 MCG Tablet PO (05:56)
[2021-11-09] MEDS: Potassium Chloride Oral Tablet 20 MEQ PO ×2 (05:56→17:21)
[2021-11-09] MEDS: Montelukast 10 MG Tablet PO (05:56)
[2021-11-09] MEDS: dilTIAZem CD 120 MG Capsule PO (05:56)
[2021-11-09] MEDS: Gabapentin 100 MG Capsule PO ×3 (05:56→21:52)
[2021-11-09] MEDS: Cefdinir 300 MG Capsule PO ×2 (05:56→17:22)
[2021-11-09] MEDS: Pantoprazole Sodium 40 MG Tablet PO ×2 (05:57→17:22)
[2021-11-09] MEDS: Aspirin E.C. 81 MG Tablet PO (06:01)
[2021-11-09] MEDS: Metoprolol(XL)Succ 50 MG Tablet PO ×2 (06:02→17:22)
[2021-11-09 06:40] LABS: Bedside Glucose 229 mg/dL (74-106)
--- NOTE | 2021-11-09 07:40 | NURSING ---
Addendum entered by Laurence Beatty 11/09/21 15:14: music mixer in inserting PICC at this time. Original Note: Pt. observed hallucinating this AM talking to self, sitting on the little boy. Confused. Observed picking at dressing to midline. Small amount red drainage observed to midline dressing. lab states 2 different lab techs attempted to draw labs this AM and was unable. poleyard supervisor called with request to attempt lab draw. Dr. Deleon notified of above via written communication requesting PICC line due to difficult IV access/lab draws, Dr. Deleon on unit at this time.
[2021-11-09] MEDS: predniSONE 10 MG Tablet 30 MG PO (08:28)
[2021-11-09 08:31] LABS: Anion Gap 3 (5-15); BUN 55 mg/dL (7-18); BUN/Creat Ratio 33.7 RATIO (10-20); Calcium,Total 9.3 mg/dL (8.5-10.1); Chloride 100 mmol/L (98-107); Creatinine, Serum 1.63 mg/dL (0.55-1.02); EST Glomerular Filtration Rate 34 mL/min (>60); Est Glom Filt Rate - Afr Amer 41 mL/min (>60); Estimated Creatinine Clearance 30.96 ml/min; Glucose 247 mg/dL (74-106); Potassium 4.4 mmol/L (3.5-5.1); Sodium Level 135 mmol/L (136-145)
[2021-11-09] MEDS: Insulin Lispro 100 UNIT/ML INSULN.PEN 7 UNIT SC ×3 (08:31→17:21)
--- NOTE | 2021-11-09 08:49 | CASEMGMT ---
Addendum entered by Graciela Trivedi 11/09/21 13:38: Received call from Maya at Palliative that Katherine,PIPE ORGAN TECHNICIAN will visit pt 11/11 at 0800, and she spoke with on the phone. Maya also provided support and education to son. GREG left communication to Dr. Deleon to contact son and hep educate to pts condition, treatments, and interventions in place. Addendum entered by Graciela Trivedi 11/09/21 11:36: Followed up with YARD LOADER OPERATOR whom left message with son and had not received return phone call. SW contacted son. Explained to son, requesting Palliative services to assist in managing symptoms, and ordered additional interventions to see if pt improves. Son expressed feeling better with that decision, provided informed consent to placing picc line. Son expressed his lack of knowledge with medical conditions, care and medications, but wants to ensure pt receives all chances before hospice. Son continued to reiterate he visited pt on Sunday and pt was doing well, and shocked how quickly pt could decline. Son stated he was going to visit pt when she readmitted to TCU last night but pt told son to go to the grocery store instead and thinking if he was present, that could have prevented something. GREG provided emotional and verbal support. Educated to quick changes, multiple chronic medical conditions, acknowledged and praised for advocating for his mother. Assured and educated son that is competent in ensuring all medications and treatments ordered for pt are in pt's best interest to improve; is knowledgeable of all side effects with medications; all pts respond differently to medications, and change in environment could also exacerbate confusion. Assured son to not blame self for pts change in condition on son not being present when pt readmitted to TCU; IDT is competent in their disciplines for son to focus on being a son to pt. Pt expressed great appreciation for support and information. Son will be awaiting call from Palliative. GREG updated YARD LOADER OPERATOR. Addendum entered by Graciela Trivedi 11/09/21 09:24: Son contacted this worker again and stated he visited patient yesterday and seemed okay, expressing some concern with admitting to hospice so quickly. GREG explained concerns to and Dr haque for Palliative anf requesting PIPE ORGAN TECHNICIAN follow during TCU stay. If pt does not improve, can revisit hospice. Nurse to update son. GREG left message with Stiven at [facility]. GREG spoke with Ivy at [facility] to update on change to Palliative. Ivy to transfer the referral and Palliative team to notify this worker of PIPE ORGAN TECHNICIAN visit. IDT updated. Original Note: Social Work Received call from nursing stating Dr. Deleon requesting hospice consult with DC today. GREG phoned referral to Ivy at [facility]. Explained goal is for pt to DC to [facility] with hospice today. Ivy stated once the son is contacted and consents are signed, pt can admit, and [facility] can provide transport. GREG contacted Stiven at [facility] whom confirmed pt can admit today with [facility] services. GREG spoke with son, Aydin, to explain above. Son expressed understanding and requested to get further information from Dr. Son to await call from [facility] and agreeable to sign consents and have pt transferred today. GREG notified Dr. Deleon to contact son. Faxed referral to [facility]. Notified IDT. JULIANNE Cid
[2021-11-09 11:30] LABS: Bedside Glucose 219 mg/dL (74-106)
[2021-11-09] MEDS: Collagenase 30gm Tube 1 APPLIC TOPICAL (14:53)
--- NOTE | 2021-11-09 14:58 | WOUNDNOTE ---
wound photo: left foot
--- NOTE | 2021-11-09 14:59 | WOUNDNOTE ---
wound photo: left foot
--- NOTE | 2021-11-09 14:59 | WOUNDNOTE ---
wound photo: left heel
--- NOTE | 2021-11-09 15:00 | WOUNDNOTE ---
wound photo: right heel
[2021-11-09 16:35] LABS: Bedside Glucose 259 mg/dL (74-106)
--- NOTE | 2021-11-09 16:50 | CASEMGMT ---
Social Work Met with patient and son, Aydin in room. Checked in with pt after events from last night and today. Pt stated she agreed last night was bad and feeling better this afternoon. Pt and son will be present to speak with during rounds this evening. No changes to code status, MOLST, or previous admission assessment. EMINGTONS . SW to continue to follow for DC plans and support. Graciela Trivedi, CELLULAR EQUIPMENT REPAIRER RE EXAMINER
[2021-11-09] MEDS: LORazepam 1 MG Tablet PO (21:40)
[2021-11-09 21:41] LABS: Bedside Glucose 300 mg/dL (74-106)
[2021-11-09] MEDS: traZODone 50 MG Tablet PO (21:42)
[2021-11-09] MEDS: Atorvastatin Calcium 80 MG Tablet PO (21:43)
[2021-11-09] MEDS: Paroxetine 20 MG Tablet 40 MG PO (21:46)
[2021-11-09] MEDS: buPROPion (XL) 150 MG TABLET.XL PO (21:46)
[2021-11-09] MEDS: Insulin Glargine-YFGN 100 UNIT/ML Pen 30 UNIT SC (21:49)
[2021-11-10] MEDS: oxyCODONE 5 MG Tablet PO ×2 (00:54→18:19)
[2021-11-10] MEDS: LORazepam 1 MG Tablet PO ×2 (00:55→23:44)
[2021-11-10] MEDS: Juven (unflavored) Packet 1 PACKET PO ×2 (05:55→18:02)
[2021-11-10] MEDS: Pantoprazole Sodium 40 MG Tablet PO ×2 (05:56→18:02)
[2021-11-10] MEDS: Montelukast 10 MG Tablet PO (05:56)
[2021-11-10] MEDS: Aspirin E.C. 81 MG Tablet PO (05:56)
[2021-11-10] MEDS: dilTIAZem CD 120 MG Capsule PO (05:56)
[2021-11-10] MEDS: Levothyroxine 88 MCG Tablet PO (05:56)
[2021-11-10] MEDS: Menthol/Lanolin/Calamine/Znox 113 GM Tube 1 APPLIC TOPICAL ×2 (05:57→17:59)
[2021-11-10] MEDS: Collagenase 30gm Tube 1 APPLIC TOPICAL (05:57)
[2021-11-10] MEDS: Senna Tablet 1 TABLET PO ×2 (05:57→18:03)
[2021-11-10] MEDS: Furosemide 80 MG Tablet PO (05:59)
[2021-11-10] MEDS: Nystatin Powder 15gm Bottle 1 APPLIC TOPICAL ×2 (06:00→17:59)
[2021-11-10] MEDS: Potassium Chloride Oral Tablet 20 MEQ PO ×2 (06:00→18:02)
[2021-11-10] MEDS: 0.9% Saline Lock 10 ML Syringe IV ×3 (06:06→22:13)
[2021-11-10 06:17] VITALS: PULSE 72
[2021-11-10] MEDS: Gabapentin 100 MG Capsule PO ×3 (06:17→22:07)
[2021-11-10] MEDS: Metoprolol(XL)Succ 50 MG Tablet PO ×2 (06:17→18:04)
[2021-11-10 06:20] LABS: Absolute Lymphocyte Count 0.98 X10^3/uL (0.83-4.51); Absolute Neutrophil Count 7.5 X10^3/uL (2.0-7.7); Basophil# 0.01 X10^3/uL; Basophil% 0.1 % (0-1); Eosinophil# 0.13 X10^3/uL; Eosinophils% 1.4 % (0-5); Hematocrit 26.6 % (37-47); Hemoglobin 8.1 g/dL (12.0-15.0); Lymphocyte # 0.98 X10^3/ul (0.83-4.51); Lymphocyte % 10.3 % (19-41); Mean Corp Hgb Conc 30.5 g/dL (32-36); Mean Corpuscular Hgb 27.9 pg (27.0-32.0); Mean Corpuscular Volume 91.7 fL (81-99); Mean Platelet Vol. 11.9 fl (6.2-12.0); Monocyte# 0.81 X10^3/uL; Monocyte% 8.5 % (0-10); NRBC Flagged by Analyzer 0 % (0-5); Neutrophil # 7.51 X10^3/uL (2.7-7.7); Neutrophil % 79.2 % (47-70); Platelet Count 142 K/mm3 (150-450); RBC Distribution Width CV 16.5 % (11.6-14.6); RBC Distribution Width SD 53.1 fl (35.1-43.9); White Blood Count 9.5 K/mm3 (4.4-11.0)
[2021-11-10 06:51] LABS: Bedside Glucose 237 mg/dL (74-106)
[2021-11-10] MEDS: Insulin Lispro 100 UNIT/ML INSULN.PEN 7 UNIT SC ×2 (06:58→11:47)
[2021-11-10] MEDS: predniSONE 10 MG Tablet 30 MG PO (08:28)
[2021-11-10 09:50] VITALS: PULSE 67; RESP 18; O2SAT 93
[2021-11-10 10:21] VITALS: PULSE 68; RESP 21; TEMP 36.2; O2SAT 93
[2021-11-10 11:25] LABS: Bedside Glucose 244 mg/dL (74-106)
--- NOTE | 2021-11-10 15:18 | NURSING ---
PT CONTINUES TO GET UP ON OWN WALKING AROUND IN ROOM WITH OUT CALLING AND IS CONFUSED. ASKED ARLEN IF OK TO APPLY ALARM TO CHAIR AND BED DO TO PT HAVING FALLS IN PAST AND THIS NURSE AFRAID PT WILL FALL AGAIN. PER ARLEN IT IS OK TO APPLY ALARMS.
[2021-11-10 16:25] LABS: Bedside Glucose 270 mg/dL (74-106)
[2021-11-10 18:04] VITALS: BP 143/48; PULSE 74
[2021-11-10] MEDS: Insulin Lispro 100 UNIT/ML INSULN.PEN 10 UNIT SC (18:13)
[2021-11-10 18:21] VITALS: BP 143/48; PULSE 74
--- NOTE | 2021-11-10 20:47 | NURSING ---
Patients family concerned with not being able to have access to patients med list, and that the patients son Aydin is power of claim attorney. This RN unable to find verification of POA status. This RN in patients room with son, [id number] and patient and Heike RN. PT states she is cery unhappy with this hospital and wants to leave. Pt son states pt was given a steroid a week ago and almost , and they want to make sure she is not on another steroid. Pts family reports patient is confused and seeing someone outside of her room. Pt is alert, able to describe events of last weekend when she was given a steriod. Discussion was had with family and patient about what needs to be done to assure that POA/Living Will paperwork is on file. Nursing will have social work address in the morning. This RN took family out of room and went over the pts current med list when patient said it was ok. Pt son Aydin of with current meds. Discussion was had also with patient and family about hospice/palliative care and the difference. Pt and family was frustrated that the patient came in for a toe removal and was not having hospice/pallative care thrown at them. Pt stated in room that she wanted to leave tonight, this RN discussed the risk of leaving berfore the doctor discharged her. She agreed to staying tonight but is leaving tomorrow.
[2021-11-10 21:36] LABS: Bedside Glucose 282 mg/dL (74-106)
[2021-11-10] MEDS: buPROPion (XL) 150 MG TABLET.XL PO (22:07)
[2021-11-10] MEDS: Paroxetine 20 MG Tablet 40 MG PO (22:07)
[2021-11-10] MEDS: Atorvastatin Calcium 80 MG Tablet PO (22:09)
[2021-11-10] MEDS: Insulin Glargine-YFGN 100 UNIT/ML Pen 30 UNIT SC (22:09)
[2021-11-10] MEDS: traZODone 50 MG Tablet PO (22:09)
[2021-11-11] MEDS: LORazepam 1 MG Tablet PO (05:04)
[2021-11-11] MEDS: Gabapentin 100 MG Capsule PO (05:04)
[2021-11-11 05:05] VITALS: PULSE 74
[2021-11-11] MEDS: Furosemide 80 MG Tablet PO (05:05)
[2021-11-11] MEDS: Levothyroxine 88 MCG Tablet PO (05:05)
[2021-11-11] MEDS: Metoprolol(XL)Succ 50 MG Tablet PO ×2 (05:05→17:19)
[2021-11-11] MEDS: Aspirin E.C. 81 MG Tablet PO (05:05)
[2021-11-11] MEDS: Potassium Chloride Oral Tablet 20 MEQ PO (05:06)
[2021-11-11] MEDS: Pantoprazole Sodium 40 MG Tablet PO ×2 (05:06→17:18)
[2021-11-11] MEDS: Montelukast 10 MG Tablet PO (05:06)
[2021-11-11] MEDS: dilTIAZem CD 120 MG Capsule PO (05:06)
[2021-11-11] MEDS: Senna Tablet 1 TABLET PO ×2 (05:07→17:19)
[2021-11-11] MEDS: Menthol/Lanolin/Calamine/Znox 113 GM Tube 1 APPLIC TOPICAL ×2 (05:10→17:24)
[2021-11-11] MEDS: Nystatin Powder 15gm Bottle 1 APPLIC TOPICAL ×2 (05:10→17:25)
[2021-11-11] MEDS: Juven (unflavored) Packet 1 PACKET PO ×2 (05:11→17:18)
[2021-11-11] MEDS: Collagenase 30gm Tube 1 APPLIC TOPICAL (05:13)
[2021-11-11] MEDS: 0.9% Saline Lock 10 ML Syringe IV (06:22)
[2021-11-11 06:41] LABS: Bedside Glucose 234 mg/dL (74-106)
[2021-11-11] MEDS: predniSONE 10 MG Tablet 30 MG PO (07:44)
[2021-11-11] MEDS: Insulin Lispro 100 UNIT/ML INSULN.PEN 10 UNIT SC ×3 (07:44→17:20)
[2021-11-11] MEDS: Acetaminophen 500 MG Tablet 1000 MG PO ×2 (08:57→22:37)
[2021-11-11] MEDS: oxyCODONE 5 MG Tablet PO (08:57)
[2021-11-11 11:40] LABS: Bedside Glucose 184 mg/dL (74-106)
[2021-11-11 13:50] VITALS: BP 146/74; PULSE 69; RESP 20; TEMP 37.2; O2SAT 97
--- NOTE | 2021-11-11 14:21 | NURSING ---
Per Dr. Deleon order MRI of brain for delirium and increased confusion.
--- NOTE | 2021-11-11 14:23 | NURSING ---
Patients insurance company called for prior auth. Per insurance company, NO prior auth is needed for MRI of brain. Order sent to [facility].
--- NOTE | 2021-11-11 15:20 | RAD_ITS ---
STUDY: X-RAY - ABDOMEN/PELVIS REASON FOR EXAM: Female, 66 years old. Constipation. TECHNIQUE: Two AP supine views of the abdomen and pelvis. COMPARISON: None. FINDINGS: Normal visualized lung bases. Increased feces throughout nondistended colon. There are scattered air in nondilated small bowel loops. There is no marked increase in rectal feces. There is no demonstrated free abdominal air. The visualized liver, spleen and kidneys are grossly normal in size and morphology. There is a triangular calcification measuring 0 point age by 0.4 cm thought to represent a calcification in the lower pole left kidney. Normal soft tissue structures. Normal visualized osseous structures. RAD/Abdomen Single View IMPRESSION: 1. Question left renal calculus. 2. No evidence for acute intra-abdominal process. Electronically Signed: All Lester DO at 17:52 EDT ,
[2021-11-11 15:24] LABS: Absolute Lymphocyte Count 0.41 X10^3/uL (0.83-4.51); Absolute Neutrophil Count 8.6 X10^3/uL (2.0-7.7); Basophil# 0.01 X10^3/uL; Basophil% 0.1 % (0-1); Lymphocyte # 0.41 X10^3/ul (0.83-4.51); Lymphocyte % 4.3 % (19-41); Mean Corp Hgb Conc 29.6 g/dL (32-36); Mean Corpuscular Hgb 28.3 pg (27.0-32.0); Mean Corpuscular Volume 95.4 fL (81-99); Mean Platelet Vol. 12.1 fl (6.2-12.0); Monocyte# 0.38 X10^3/uL; NRBC Flagged by Analyzer 0 % (0-5); Neutrophil # 8.59 X10^3/uL (2.7-7.7); Neutrophil % 91.1 % (47-70); POSITIVE DIFFERENTIAL YES; Platelet Count 135 K/mm3 (150-450); RBC Distribution Width CV 16.9 % (11.6-14.6); RBC Distribution Width SD 57.7 fl (35.1-43.9); Red Blood Count 2.83 M/mm3 (4.2-5.4); White Blood Count 9.4 K/mm3 (4.4-11.0)
[2021-11-11 15:30] LABS: Anion Gap 6 (5-15); BUN 48 mg/dL (7-18); BUN/Creat Ratio 34.3 RATIO (10-20); Calcium,Total 9.3 mg/dL (8.5-10.1); Chloride 102 mmol/L (98-107); EST Glomerular Filtration Rate 40 mL/min (>60); Est Glom Filt Rate - Afr Amer 48 mL/min (>60); Estimated Creatinine Clearance 36.05 ml/min; Glucose 240 mg/dL (74-106); Potassium 5.2 mmol/L (3.5-5.1); Sodium Level 140 mmol/L (136-145)
[2021-11-11 15:36] LABS: Differential Indicated SCAN CRITERIA MET
[2021-11-11 16:05] LABS: Platelet Estimate SLT DEC (ADEQ); Red Cell Morphology NORM C+C NORMAL (NORM C&C)
[2021-11-11 16:26] LABS: Mucous, Urine 0 SEEN /hpf (<or=2+); Squamous Epithelial Cells - UA 0 SEEN /hpf (5-10); White Blood Cells 0 SEEN /hpf (0-5)
[2021-11-11 16:28] LABS: Color, Urine Yellow (Yellow); Glucose, Dipstick Normal (Normal); Ketone-Dipstick Negative (Negative); Leukocyte Esterase-Dipstick Negative /ul (Negative); Nitrite-Dipstick Negative (Negative); Occult Blood-Urine 25 /ul (Negative); Protein-Dipstick 100 mg/dl (Negative); Urine Bilirubin Dipstick Negative (Negative); Urine Clarity Clear (Clear); Urine Urobilinogen Normal (Normal)
[2021-11-11 16:30] LABS: Bedside Glucose 237 mg/dL (74-106)
[2021-11-11 16:37] LABS: Red Blood Cells-Urine 0-5 SEEN /hpf (0-5)
[2021-11-11 16:38] LABS: Bacteria 2+ /hpf (None Seen)
--- NOTE | 2021-11-11 16:51 | NURSING ---
dr do notified of Urine & lab results, new order for kayexalate, recheck BMP in AM, & DC potassium
[2021-11-11 17:19] VITALS: BP 146/74; PULSE 69
[2021-11-11] MEDS: Sodium Polystyrene Sulfonate 15 GM/60 ML UDC PO (17:51)
--- NOTE | 2021-11-11 18:30 | NURSING ---
dr do reviewed LISA, new order for SSE
--- NOTE | 2021-11-11 20:23 | PCM.CONS.P ---
Assessment & Plan Assessment/Plan (1) Insomnia: (2) Gastroesophageal reflux disease: (3) Anxiety: (4) Diabetic polyneuropathy: (5) Hypothyroidism: (6) Diabetes mellitus: (7) Depression: (8) Hyperlipidemia: (9) Chronic obstructive pulmonary disease: (10) Acute on chronic diastolic congestive heart failure: (11) Atrial fibrillation: (12) SVT (supraventricular tachycardia): (13) Hospital-acquired pneumonia: (14) Acute respiratory failure with hypoxia: (15) Debility: (16) History of amputation of hallux: (17) Diabetic polyneuropathy: PLAN: ASSESSMENT/PLAN: SONA WILSON, is a 66 Female referred to [facility] for symptoms related to respiratory failure, CHF and MIKE on chronic kidney disease. Palliative plan as follows: 1) Respiratory failure/PNA/ CKD stage 3/ COPD/Heart failure/afib/SVT: Palliative feel that patient's prognosis is grave and life expectancy less than 6 months and hospice appropriate. According to discussions with the Palliative office, Son, Aydin, has been resistant to this idea due to a bad experience with hospice care. Would like to discuss with him Hospice versus Palliative options for care. At current physical state, patient is not able to discharge to [place] at [facility]. Patient states that sons have discussed caring for her at home. This will need to be verified with son. Patient would benefit from hospice care to manage dyspnea and pain. Currently on oral medications so would not require IPU management unless symptoms exacerbate requiring IV or subq medications. If opts for Palliative care, Palliative would follow at [facility] to assist with managing symptoms outpatient as long as able. Patient would also need close following with cardiology and pulmonary on Palliative care to attempt to avoid hospitalizations 2) Pain due to left hallus amputation: Patient is on TID 100mg Gabapentin, Oxycodone 5mg every 4 hours PRN and Tylenol 1000mg every 8 hours PRN. Seems like there is an element of lethargy and confusion so would be hesitant for any scheduling or opioids or increase at this time. Staff to monitor for s/s of pain and utilize PRN dosing. At this time, has not been used frequently 3) Anxiety: PRN Ativan may have contributed to additional confusion. Discontinued by PCP. Routine Ativan decreased to 0.5mg at bedtime currently. Continue Bupropion and Paxil. Could benefit from additional Palliative counseling support Thank you for the opportunity to participate in this patient's care, please do not hesitate to contact [facility] with any further questions or concerns. Palliative direct line is [phone]. Son, Aydin has not called back and has not signed consents so unsure if is interested in Palliative services.We will attempt to call son again next week to discuss Palliative/Hospice options. TIME IN: 0800 TIME OUT: 0930 HPI Consult Data Date of Consult: 11/11/21 HPI Narrative HPI Narrative: SONA WILSON, is a 66 Female referred to [facility] for symptoms related to respiratory failure, CHF and MIKE on chronic kidney disease. She had a recent hospitalization for a post left hallux amputation on 10/[address] No. Past medical history listed below: She was originally referred to hospice but family was more interested in discussing Palliative services. Sona was seen by Palliative in August of 2020 for a hospitalization for respiratory failure exacerbated by CHF. At the time, was interested in Palliative care, but had not followed up with consent signing. Sona presented to [facility] on 11/03/21 from [facility] with shortness of breath worsening for 2 days. CTA chest negative pulmonary embolism, but shows bilateral pleural effusion, congestive heart failure versus pneumonia requiring BiPAP, BiPAP FiO2 30% applied, breathing easier. Troponin 18, BNP 211. Zosyn, Vancomycin, Lasix given for pneumonia, congestive heart failure. Admitted later that day to the hospital , antibiotics added were Azithromycin, Vancomycin, Cefepime, sputum culture, blood culture urinary antigens strep, legionella for hospital acquired pneumonia.IV Lasix started for acute on chronic diastolic congestive heart failure. On 11/04/21, Started on Adenosine and Cardizem drip for SVT. Started to see improvement in breathing on 11/05 all cultures negative. Started on IV steroids for COPD and Cardizem 120mg daily for SVT. 11/06/21 Sona reported feeling better O2 is now at 4 liters and IV Lasix was transitioned to oral Lasix and IV prednisone transitioned to oral Prednisone on 11/07/21. Lasix was held on 11/07/21 due to worsening creatinine. Cefepime IV for pneumonia and on 11/08/21 transferred to TCU for strengthening, prior to discharge Seen today in her TCU room. Patient is alert to self and place. Confused in conversation. Reports pain in her left foot and says that it is stabbing with encouragement 7-9/10 before Oxycodone and 7/10 after the PRN dose. Patient appears comfortable at this time. Has 3-4 word conversational dyspnea. Currently on 6 liters. 5 is her baseline at [facility]. Sona reports that her son has discussed taking her home and caring for her. Not sure if this is accurate. States she is not going to [employer] and wants to go back to [facility]. Wants to live as long as she can. States that she slept good last night Like a rock. Periods of lucidness combined with confusion. Patient takes Ativan before bedtime and has PRN doses available as well. Last BM last night. Discussed with PT that patient has not progressed much. They have done some chair exercises, but is limited due to confusion. Attempted to call Aydin at [phone] and voicemail left to call Palliative office to discuss mom's care. Staff and Palliative office report that he has been resistent to discussion about both hospice and Palliative care. [facility] Medical History Acute cervical myofascial strain Acute on chronic respiratory failure with hypoxemia Amputated toe of left foot Anemia Asthma Atherosclerotic heart disease of [place] coronary artery without angina pectoris Atrial fibrillation CAD (coronary artery disease) CHF (congestive heart failure) Chronic heart failure with preserved ejection fraction (HFpEF) Chronic heel ulcer Chronic respiratory failure with hypoxia, on home oxygen therapy Chronic ulcer of great toe of left foot Closed head injury Congestive heart failure (CHF) COPD (chronic obstructive pulmonary disease) Decubitus ulcer of dorsum of foot, stage 2 Decubitus ulcer of left heel, stage 2 Decubitus ulcer of left heel, stage 3 Decubitus ulcer, heel, left, unstageable Depression Diabetes mellitus with diabetic polyneuropathy Diabetes type 2, controlled Diabetic foot ulcers Diverticulitis Essential hypertension Former smoker History of amputation of left great toe History of non-ST elevation myocardial infarction (NSTEMI) (02/24/17) Hyperlipidemia Hypothyroid Myocardial infarct Non-rheumatic tricuspid valve insufficiency Nondisplaced fracture of distal phalanx of right great toe, initial encounter for closed fracture Nonrheumatic mitral (valve) insufficiency Obesity Obstructive sleep apnea On home O2 Renal insufficiency Secondary pulmonary arterial hypertension Type 2 diabetes mellitus Home Medications bupropion HCl 300 mg 24 hr tablet, extended release 150 mg PO QHS depression 09/02/20 [History Last Taken 10/13/21] fluticasone furoate 100 mcg-vilanterol 25 mcg/dose inhalation powder (Breo Ellipta) 1 inh inhalation BID breathing 09/02/20 [History Last Taken 10/14/21] fluticasone propionate 50 mcg/actuation nasal spray,suspension 1 spray intranasal DAILY PRN Allergies 09/02/20 [History Last Taken 09/02/20] furosemide 80 mg tablet 80 mg PO DAILY water pill 09/02/20 [History Last Taken 10/14/21] levothyroxine 88 mcg tablet 88 mcg PO DAILY thyroid 09/02/20 [History Last Taken 10/14/21] lorazepam 1 mg tablet 0.5 mg PO QHS anxiety 09/02/20 [History Last Taken 10/13/21] montelukast 10 mg tablet 10 mg PO DAILY allergies 09/02/20 [History Last Taken 10/14/21] trazodone 100 mg tablet 50 mg PO QHS sleep 09/02/20 [History Last Taken 10/13/21] aspirin 81 mg tablet,delayed release (Adult Aspirin Regimen) 81 mg PO DAILY heart 05/17/21 [History Last Taken 10/14/21 09:30] gabapentin 100 mg capsule (Neurontin) 100 mg PO TID nerve pain 08/25/21 [History Last Taken 10/14/21] insulin detemir U-100 100 unit/mL (3 mL) subcutaneous pen 30 unit subcut QHS blood sugar 09/02/21 [History Last Taken 10/13/21] insulin lispro 100 unit/mL subcutaneous pen 7 unit subcut ACHS blood sugar 09/02/21 [History Last Taken 10/14/21] ipratropium 0.5 mg-albuterol 3 mg (2.5 mg base)/3 mL nebulization soln 3 ml inhalation BID PRN sob 09/02/21 [History Last Taken Unknown] paroxetine HCl 30 mg tablet 40 mg PO QHS mental health 09/02/21 [History Last Taken 10/13/21] atorvastatin 80 mg tablet 80 mg PO QHS Cholestrol 10/22/21 [History Last Taken Unknown] pantoprazole 40 mg tablet,delayed release 40 mg PO BID GERD 10/22/21 [History Last Taken Unknown] acetaminophen 500 mg tablet 1,000 mg PO Q8H PRN Pain 11/03/21 [History Last Taken Unknown] arginine 7 gram-glutamine 7 gram-calcium HMB 1.5 gram oral powder pack (Say) 1 ea PO BID wound healing 11/03/21 [History Last Taken Unknown] bisacodyl 10 mg rectal suppository 10 mg ID DAILY PRN Constipation 11/03/21 [History Last Taken Unknown] collagenase clostridium histo. 250 unit/gram topical ointment (Santyl) 1 applic topical DAILY wound 11/03/21 [History Last Taken Unknown] menthol 0.44 %-zinc oxide 20.6 % topical ointment (Calmoseptine) 1 applic topical BID buttocks 11/03/21 [History Last Taken Unknown] nystatin 100,000 unit/gram topical powder 1 applic topical BID skin irritation 11/03/21 [History Last Taken Unknown] oxycodone 5 mg tablet 5 mg PO Q4H PRN Pain 11/03/21 [History Last Taken Unknown] potassium chloride 20 mEq tablet,extended release 20 meq PO BID supplement 11/03/21 [History Last Taken Unknown] sennosides 8.6 mg tablet (senna) 17.2 mg PO BID stool softener 11/03/21 [History Last Taken Unknown] cefdinir 300 mg capsule 300 mg PO Q12 ATB 11/08/21 [History Last Taken Unknown] diltiazem HCl 120 mg capsule,extended release 24 hr 120 mg PO DAILY heart 11/08/21 [History Last Taken Unknown] metoprolol succinate 50 mg tablet,extended release 24 hr 50 mg PO BID BP 11/08/21 [History Last Taken Unknown] prednisone 20 mg tablet 40 mg PO BREAKFAST antiinflammatory 11/08/21 [History Last Taken Unknown] Allergy/AdvReac Type Severity Reaction Status Date / Time Sulfa (Sulfonamide Allergy Anaphylaxis Verified 11/03/21 08:07 Antibiotics) sulfur dioxide Allergy Anaphylaxis Verified 11/03/21 08:07 Family History Grandmother Diabetes Mother Heart disease Surgical History H/O right heart catheterization History of cataract surgery History of coronary artery stent placement (02/24/17) Tubal ligation status Social History household members: none housing: other details: [facility] Living. Smoking Status: Former smoker how long ago did patient quit smokin alcohol intake: former year quit: 1999 substance use type: does not use caffeine: Yes Type: carbonated beverages and tea ROS ROS Narrative ROS difficult due to mental status. See HPI Physical Exam Const General Appearance: cooperative, disheveled and ill appearing Orientation / Consciousness: oriented to person and comatose HEENT normocephalic and head/scalp atraumatic Neck full ROM and supple Resp Auscultation: clear to auscultation bilaterally and other fine crackles anterior lobes Cardio regular rate and regular rhythm GI normal to inspection, nondistended, normoactive bowel sounds Skin Skin Narrative: dressing applied to left foot, covered with LAURA wrap Neuro Sensorium / Orientation: awake, alert, oriented to person and confused
[2021-11-11] MEDS: traZODone 50 MG Tablet 25 MG PO (20:46)
[2021-11-11] MEDS: Paroxetine 20 MG Tablet PO (20:47)
[2021-11-11] MEDS: LORazepam 0.5 MG Tablet PO (20:47)
[2021-11-11] MEDS: Atorvastatin Calcium 40 MG Tablet PO (20:47)
[2021-11-11 21:36] LABS: Bedside Glucose 266 mg/dL (74-106)
[2021-11-11] MEDS: Insulin Glargine-YFGN 100 UNIT/ML Pen 30 UNIT SC (21:49)
[2021-11-11 22:00] VITALS: PULSE 83; RESP 22; O2SAT 88
--- NOTE | 2021-11-11 22:20 | NURSING ---
Dr. Deleon notified of MRI results. No new orders at this time.
[2021-11-11] MEDS: oxyCODONE 5 MG Tablet 2.5 MG PO (22:37)
--- NOTE | 2021-11-12 00:03 | NURSING ---
Pt calling out for help, experiencing visual hallucinations, and picking at face. States that she is very nervous. Dr. Deleon notified. New order placed for one time dose of 1 mg Ativan PO. RN aware.
[2021-11-12] MEDS: LORazepam 1 MG Tablet PO ×2 (00:16→22:05)
[2021-11-12] MEDS: oxyCODONE 5 MG Tablet 2.5 MG PO ×3 (02:45→19:32)
[2021-11-12] MEDS: Juven (unflavored) Packet 1 PACKET PO ×2 (06:11→17:10)
[2021-11-12 06:12] VITALS: BP 132/65; PULSE 89
[2021-11-12] MEDS: Pantoprazole Sodium 40 MG Tablet PO ×2 (06:12→17:13)
[2021-11-12] MEDS: Furosemide 80 MG Tablet PO (06:12)
[2021-11-12] MEDS: Aspirin E.C. 81 MG Tablet PO (06:12)
[2021-11-12] MEDS: Metoprolol(XL)Succ 50 MG Tablet PO ×2 (06:12→17:13)
[2021-11-12] MEDS: Levothyroxine 88 MCG Tablet PO (06:13)
[2021-11-12] MEDS: Senna Tablet 1 TABLET PO ×2 (06:13→17:13)
[2021-11-12] MEDS: Nystatin Powder 15gm Bottle 1 APPLIC TOPICAL ×2 (06:13→17:12)
[2021-11-12] MEDS: buPROPion (XL) 150 MG TABLET.XL PO (06:13)
[2021-11-12] MEDS: Collagenase 30gm Tube 1 APPLIC TOPICAL (06:14)
[2021-11-12] MEDS: Menthol/Lanolin/Calamine/Znox 113 GM Tube 1 APPLIC TOPICAL ×2 (06:14→17:12)
[2021-11-12 06:35] LABS: Bedside Glucose 178 mg/dL (74-106)
[2021-11-12 07:50] LABS: Anion Gap 7 (5-15); BUN 44 mg/dL (7-18); BUN/Creat Ratio 33.6 RATIO (10-20); Calcium,Total 9.3 mg/dL (8.5-10.1); Chloride 105 mmol/L (98-107); Creatinine, Serum 1.31 mg/dL (0.55-1.02); EST Glomerular Filtration Rate 43 mL/min (>60); Est Glom Filt Rate - Afr Amer 52 mL/min (>60); Estimated Creatinine Clearance 38.53 ml/min; Glucose 184 mg/dL (74-106); Potassium 4.1 mmol/L (3.5-5.1); Sodium Level 143 mmol/L (136-145)
[2021-11-12] MEDS: Insulin Lispro 100 UNIT/ML INSULN.PEN 10 UNIT SC ×3 (08:03→17:11)
[2021-11-12 11:26] LABS: Bedside Glucose 163 mg/dL (74-106)
--- NOTE | 2021-11-12 11:55 | NURSING ---
Pt picking at face until it is bleeding, restless, taking oxygen off and chewing on her nasal cannula. She is hallucinating and is talking to her father and asking if family members are still under her bed. Dr. Deleon updated and N.O. for atarax 50mg Q6H PRN for itchiness, anxiety, or restlessness.
[2021-11-12] MEDS: hydrOXYzine PAM 25 MG Capsule 50 MG PO ×2 (12:18→19:30)
[2021-11-12] MEDS: Acetaminophen 500 MG Tablet 1000 MG PO ×2 (13:24→19:31)
[2021-11-12 14:30] VITALS: BP 143/58; PULSE 77; RESP 16; TEMP 36.2; O2SAT 96
--- NOTE | 2021-11-12 15:02 | NURSING ---
Resident observed on camera attempting to self transfer at this time. Resident confused and restless at this time and keep removing her oxygen. Resident reoriented by staff and nasal cannula applied, 1:1 staff supervision being provided in residents room at this time.
[2021-11-12 17:13] VITALS: PULSE 77
[2021-11-12 19:15] VITALS: PULSE 84; RESP 18; O2SAT 94
[2021-11-12] MEDS: Ipratropium/Albuterol Sulfate 3 ML AMPUL.NEB INHALATION (19:15)
[2021-11-12] MEDS: Budesonide Respules 0.5 MG/2 ML AMPUL.NEB. INHALATION (19:15)
[2021-11-12 19:50] LABS: Bedside Glucose 225 mg/dL (74-106)
[2021-11-12 21:40] LABS: Bedside Glucose 151 mg/dL (74-106)
[2021-11-12] MEDS: Atorvastatin Calcium 40 MG Tablet PO (22:06)
[2021-11-12] MEDS: Paroxetine 20 MG Tablet PO (22:07)
[2021-11-12] MEDS: Insulin Glargine-YFGN 100 UNIT/ML Pen 30 UNIT SC (22:07)
[2021-11-13] MEDS: oxyCODONE 5 MG Tablet 2.5 MG PO ×3 (00:41→22:05)
[2021-11-13] MEDS: hydrOXYzine PAM 25 MG Capsule 50 MG PO (02:21)
[2021-11-13] MEDS: Acetaminophen 500 MG Tablet 1000 MG PO ×3 (02:22→22:05)
--- NOTE | 2021-11-13 03:50 | NURSING ---
Pt very confused and restless this shift, despite both pharmacological and non-pharmacological interventions. Frequently removes nasal canula, leading to additional confusion. Pt attempting multiple times to self-transfer. Requiring a lot of 1:1 interaction throughout the shift to ensure safety. Note left for Dr. Deleon regarding behaviors.
[2021-11-13] MEDS: Juven (unflavored) Packet 1 PACKET PO ×2 (05:34→17:47)
[2021-11-13 05:39] VITALS: BP 149/61; PULSE 78
[2021-11-13] MEDS: buPROPion (XL) 150 MG TABLET.XL PO (05:39)
[2021-11-13] MEDS: Furosemide 80 MG Tablet PO (05:39)
[2021-11-13] MEDS: Pantoprazole Sodium 40 MG Tablet PO ×2 (05:39→17:48)
[2021-11-13] MEDS: Senna Tablet 1 TABLET PO ×2 (05:39→17:48)
[2021-11-13] MEDS: Aspirin E.C. 81 MG Tablet PO (05:39)
[2021-11-13] MEDS: Metoprolol(XL)Succ 50 MG Tablet PO ×2 (05:39→17:48)
[2021-11-13] MEDS: Levothyroxine 88 MCG Tablet PO (05:39)
[2021-11-13] MEDS: Nystatin Powder 15gm Bottle 1 APPLIC TOPICAL ×2 (05:41→17:47)
[2021-11-13] MEDS: Menthol/Lanolin/Calamine/Znox 113 GM Tube 1 APPLIC TOPICAL ×2 (05:41→17:47)
[2021-11-13 06:50] LABS: Bedside Glucose 231 mg/dL (74-106)
[2021-11-13 07:31] VITALS: PULSE 83; RESP 20; O2SAT 96
[2021-11-13] MEDS: Budesonide Respules 0.5 MG/2 ML AMPUL.NEB. INHALATION ×2 (07:31→20:10)
[2021-11-13] MEDS: Ipratropium/Albuterol Sulfate 3 ML AMPUL.NEB INHALATION ×3 (07:31→20:05)
[2021-11-13] MEDS: Insulin Lispro 100 UNIT/ML INSULN.PEN 10 UNIT SC ×3 (07:56→16:24)
[2021-11-13 11:21] LABS: Bedside Glucose 188 mg/dL (74-106)
[2021-11-13] MEDS: Collagenase 30gm Tube 1 APPLIC TOPICAL (12:11)
--- NOTE | 2021-11-13 12:12 | PN_ITS ---
Subjective Subjective Patient is a 66-year-old female who is seen bedside today resting in Kellie chair with feet elevated. She is status post left hallux amputation on 10/21/2021. She denies any constitutional symptoms today. She does complain of weakness and difficulty breathing. Patient currently on 5 L oxygen via nasal cannula. She has no further complaints today. Objective Data Objective Data Vital Signs: Vital Signs Temp Pulse Resp BP Pulse Ox O2 Del Method O2 Flow Rate 97.2 F L 83 20 H 149/61 H 96 Nasal Cannula 5 11/12/21 14:30 11/13/21 07:31 11/13/21 07:31 11/13/21 05:39 11/13/21 07:31 11/13/21 07:31 11/13/21 07:31 Oxygen Flow Rate (L/min) 5 Oxygen Delivery Method Nasal Cannula Weight: 109.883 kg Body Mass Index (BMI) 39.4 Intake & Output: Intake and Output for Last 24 Hours 11/11/21 11/12/21 11/13/21 23:59 23:59 23:59 Intake Total 1170 / 1170 940 / 940 240 / 240 Output Total 800 / 800 Balance 370 / 370 940 / 940 240 / 240 Lab / Micro Data Result Diagrams: 11/11/21 15:07 11/12/21 06:27 Labs: Laboratory Results - last 24 hr 11/12/21 16:43: POC Glucose 225 H 11/12/21 21:18: POC Glucose 151 H 11/13/21 06:24: POC Glucose 231 H 11/13/21 11:01: POC Glucose 188 H Micro: Microbiology 11/11/21 16:17 Urine, Catheterized Urine Culture - Preliminary Alpha Hemolytic Streptococcus 11/11/21 15:40 Mucosa - Nasopharyngeal Respiratory Panel (PCR) - Final 11/11/21 15:00 Nasal Secretion SARS-CoV-2 Antigen (Rapid) - Final Physical Exam Const alert, oriented x3 and no apparent distress General Appearance: cooperative HEENT normocephalic Eyes General Eye: normal appearance of both eyes Neck General: normal visual inspection Lymph Lymphatic: no lymphadenopathy noted and no lymphedema noted Resp normal respiratory effort Cardio regular rate and regular rhythm Extremity no joint enlargement and no calf tenderness Peripheral Pulses: Yes posterior tibial pulses present; Negative for dorsalis pedis pulses present Skin no rashes or lesions noted, skin turgor normal and no jaundice Skin Narrative: Resolving rubor secondary to swelling about the surgical site at the first metatarsal head of the left foot Wound Narrative: Sutures intact at left hallux amputation stump there is a small central area of serosanguineous drainage at the incision site. Left heel decubitus ulceration with stable eschar and no local signs of infection. 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 She has returned to the transitional care unit. Due to her worsening condition palliative care was consulted and met with patient and family for their recommendations. Palliative versus hospice was discussed. Patient's family does not want to consider these options at this current time. She does admit to some pain in the left foot secondary to swelling. Site was inspected, sutures are intact to the left hallux amputation stump site.? No signs of infection. There is rubor about the incision site and first metatarsal head without increased temperature, this is subsiding.? There is a slight serosanguineous drainage from the central aspect of the incision site secondary to swelling.? No purulent drainage, no malodor, no palpable fluctuance. At this point in time her amputation stump site looks well in terms of healing progress and there is no evidence of necrotic tissue about the incision site. She does have a small area of of ecchymosis/eshcar at the dorsomedial aspect of the first metatarsal head.? I will continue to watch the site for any changes however this remains stable currently. Dressings changed consisted of Betadine soaked Adaptic, 4 x 4 gauze, ABD, Kerlix, and an Kenny wrap rolled onto the foot. Santyl applied to left heel and dressed with Adaptic 4 x 4 gauze and an ABD and Kerlix. Surgery 10/21/2021: Secondary to her dry gangrene there was also a portion of exposed bone/joint capsule of the proximal phalanx head secondary to amount of tissue at the left hallux, tissue and bone were cultured and sent to micro & pathology. Surgical cultures 10/21/2021: Tissue culture left hallux demonstrates Proteus Mirabilis.? Bone culture left hallux demonstrates Proteus Mirabilis. Last WBC was 9.4 and within normal limits on 11/11/2021. Will continue to evaluate.? She has finished her antibiotic therapy.? I again stressed with patient and nursing staff that she needs to continue to elevate the left lower extremity at all times of rest as continued swelling will create dehiscence of the surgical site. Nursing may change dressings daily.? May apply Santyl to the left heel daily.? I discussed continued offloading of the left heel in a waffle boot/Prevalon boot for treatment of left heel decubitus ulceration x2. Patient may be partial weightbearing to the left heel? in a surgical shoe for therapy sessions and bathroom privileges. She may continue her current pain management of oxyir as needed. She is elevate the left foot at all times of rest to control postoperative edema I will continue to follow while in house for continued postsurgical care. At the time of discharge she is recommended to follow-up with me in the wound care center for her left heel ulcer. Jr. Leny MorganP.M. [facility] [phone] Note: [employer] speech recognition energy efficiency engineer software was used to create portions of this document. Sound-alike and misspelled words, as well as other energy efficiency engineer errors may be contained in the documentation.
[2021-11-13 13:14] VITALS: PULSE 79; RESP 20
[2021-11-13 14:22] VITALS: BP 150/84; PULSE 83; RESP 19; TEMP 36.3; O2SAT 98
[2021-11-13 16:46] LABS: Bedside Glucose 178 mg/dL (74-106)
--- NOTE | 2021-11-13 17:03 | NURSING ---
Called daughter Clover to inform her that patient was moved to room 13 to be closer to the nurses desk.
[2021-11-13 17:48] VITALS: BP 150/84; PULSE 83
[2021-11-13 20:10] VITALS: PULSE 74; RESP 20; O2SAT 96
[2021-11-13 21:46] LABS: Bedside Glucose 197 mg/dL (74-106)
[2021-11-13] MEDS: Atorvastatin Calcium 40 MG Tablet PO (22:04)
[2021-11-13] MEDS: LORazepam 1 MG Tablet PO (22:04)
[2021-11-13] MEDS: Paroxetine 20 MG Tablet PO (22:05)
[2021-11-13] MEDS: Insulin Glargine-YFGN 100 UNIT/ML Pen 30 UNIT SC (22:10)
[2021-11-14] VITALS (7 sets, daily range): BP systolic 138–149; BP diastolic 47–65; PULSE 60–80; RESP 16–20; TEMP 36.8; O2SAT 95–99
--- NOTE | 2021-11-14 00:30 | NURSING ---
Note pt making noise in room. Upon entering room, pt's nose is bloody. Dried blood noted under fingernails and gown is soiled w/ a moderate amount of blood. Passes a couple of small mucousy clots. Removes nasal cannula at times. Face washed w/ water to remove dried blood. Jessa HILLIARD, soaked hands in warm soapy water. Nails cleaned w/ an orangewood stick and trimmed w/ clippers. House lotion applied to scabbed areas to face, chest, lower arms, hands, and legs. Confused during most of encounter and frequently reoriented to person, place, and time.
[2021-11-14] MEDS: oxyCODONE 5 MG Tablet 2.5 MG PO ×2 (03:10→19:39)
[2021-11-14] MEDS: Menthol/Lanolin/Calamine/Znox 113 GM Tube 1 APPLIC TOPICAL ×2 (06:09→17:54)
[2021-11-14] MEDS: Nystatin Powder 15gm Bottle 1 APPLIC TOPICAL ×2 (06:10→17:55)
[2021-11-14] MEDS: Furosemide 80 MG Tablet PO (06:11)
[2021-11-14] MEDS: Juven (unflavored) Packet 1 PACKET PO ×2 (06:11→17:58)
[2021-11-14] MEDS: buPROPion (XL) 150 MG TABLET.XL PO (06:13)
[2021-11-14] MEDS: Pantoprazole Sodium 40 MG Tablet PO ×2 (06:13→17:57)
[2021-11-14] MEDS: Levothyroxine 88 MCG Tablet PO (06:13)
[2021-11-14] MEDS: Metoprolol(XL)Succ 50 MG Tablet PO ×2 (06:13→17:57)
[2021-11-14] MEDS: Senna Tablet 1 TABLET PO ×2 (06:13→17:57)
[2021-11-14] MEDS: hydrOXYzine PAM 25 MG Capsule 50 MG PO ×2 (06:16→15:30)
[2021-11-14] MEDS: 0.9% Saline Lock 10 ML Syringe IV ×2 (06:18→09:50)
[2021-11-14 06:50] LABS: Bedside Glucose 193 mg/dL (74-106)
[2021-11-14] MEDS: Ipratropium/Albuterol Sulfate 3 ML AMPUL.NEB INHALATION ×2 (07:35→18:48)
[2021-11-14] MEDS: Budesonide Respules 0.5 MG/2 ML AMPUL.NEB. INHALATION ×2 (07:35→18:48)
[2021-11-14] MEDS: Aspirin E.C. 81 MG Tablet PO (08:00)
[2021-11-14] MEDS: Insulin Lispro 100 UNIT/ML INSULN.PEN 10 UNIT SC ×3 (08:01→17:52)
--- NOTE | 2021-11-14 08:29 | PCM.PN.DRR ---
TCU RX Drug Regimen Review Subjective: 66yo WF hospitalized for ARF with hypoxia secondary to HAP, complicated by acute on chronic diastolic CHF, SVT, MIKE, admitted to TCU with debility. Here for rehabilitation, strengthening, prior to discharge to assisted living.? Objective: Allergies Sulfa (Sulfonamide Antibiotics) Allergy (Verified 11/03/21 08:07) Anaphylaxis sulfur dioxide Allergy (Verified 11/03/21 08:07) Anaphylaxis Current Medications Generic Name Dose Route Start Last Admin Trade Name Freq PRN Reason Stop Dose Admin Acetaminophen 1,000 mg 11/08/21 21:34 11/13/21 22:05 Acetaminophen 500 Mg Tablet PO 1,000 mg Q6H PRN PRN Administration Pain Score 1-3 Albuterol Sulfate 2.5 mg 11/12/21 13:53 Albuterol 2.5 Mg/3 Ml Vial.Neb. INHALATION Q2H PRN PRN SOB &/OR WHEEZING Albuterol/Ipratropium 3 ml 11/12/21 14:00 11/13/21 20:05 Ipratropium/Albuterol Sulfate 3 Ml Ampul.Neb INHALATION 3 ml Q6HWA.RT DHAVAL Administration Aspirin 81 mg 11/14/21 08:00 11/14/21 08:00 Aspirin E.C. 81 Mg Tablet PO 81 mg DAILYCM DHAVAL Administration Atorvastatin Calcium 40 mg 11/11/21 22:00 11/13/21 22:04 Atorvastatin Calcium 40 Mg Tablet PO 40 mg QHS DHAVAL Administration Bisacodyl 10 mg 11/08/21 16:03 Bisacodyl 10 Mg Suppository RC DAILY PRN Constipation Budesonide 0.5 mg 11/12/21 14:00 11/13/21 20:10 Budesonide Respules 0.5 Mg/2 Ml Ampul.Neb. INHALATION 0.5 mg BID.RT DHAVAL Administration Bupropion HCl 150 mg 11/12/21 06:00 11/14/21 06:13 Bupropion (Xl) 150 Mg Tablet.Xl PO 150 mg DAILY DHAVAL Administration Calamine/Phenol 1 applic 11/08/21 18:00 11/14/21 06:09 Menthol/Lanolin/Calamine/Znox 113 Gm Tube TOPICAL 1 applic BID DHAVAL Administration Protocol Collagenase 1 applic 11/09/21 06:00 11/13/21 12:11 Collagenase 30gm Tube TOPICAL 1 applic DAILY DHAVAL Administration Protocol Furosemide 80 mg 11/10/21 06:00 11/14/21 06:11 Furosemide 80 Mg Tablet PO 80 mg DAILY DHAVAL Administration Heparin Sodium (Beef Lung) 50 units 11/08/21 15:53 Heparin Pf Lock 10 Units/Ml 50 Units/5 Ml Syringe IV UD PRN PICC Line Heparin Flush Heparin Sodium (Beef Lung) 50 units 11/08/21 21:18 Heparin Pf Lock 10 Units/Ml 50 Units/5 Ml Syringe IV UD PRN PICC Line Heparin Flush Hydroxyzine Pamoate 50 mg 11/12/21 12:05 11/14/21 06:16 Hydroxyzine Darcie 25 Mg Capsule PO 50 mg Q6H PRN PRN Administration itchiness, anxiety, or restlessness Sodium Chloride 250 mls @ 15 mls/hr 11/08/21 16:00 IV .[id number] PRN Saline Flush Sodium Chloride 250 mls @ 15 mls/hr 11/08/21 16:00 IV .[id number] PRN Additional IVPB Infusion Insulin Glargine 30 unit 11/08/21 22:00 11/13/21 22:10 Insulin Glargine-Yfgn 100 Unit/Ml Pen SC 30 unit QHS DHAVAL Administration Insulin Human Lispro 10 unit 11/11/21 06:45 11/14/21 08:01 Insulin Lispro 100 Unit/Ml Insuln.Pen SC 10 u TIDAC DHAVAL Administration L-Arginine/L-Glutamine/Calcium HMB 1 packet 11/08/21 18:00 11/14/21 06:11 Say (Unflavored) Packet PO 1 packet BID DHAVAL Administration Levothyroxine Sodium 88 mcg 11/09/21 06:00 11/14/21 06:13 Levothyroxine 88 Mcg Tablet PO 88 mcg DAILY DHAVAL Administration Lorazepam 1 mg 11/12/21 22:00 11/13/21 22:04 Lorazepam 1 Mg Tablet PO 1 mg QHS DHAVAL Administration Metoprolol Succinate 50 mg 11/08/21 18:00 11/14/21 06:13 Metoprolol(Xl)Succ 50 Mg Tablet PO 50 mg BID DHAVAL Administration Nitrofurantoin Macrocrystals 100 mg 11/14/21 08:15 Nitrofurantoin Macrocrystals [facility] Nyst[facility] 1 applic 11/08/21 18:00 11/14/21 06:10 Nystatin Powder 15gm Bottle TOPICAL 1 applic BID DHAVAL Administration Protocol Oxycodone HCl 2.5 mg 11/11/21 14:50 11/14/21 03:10 Oxycodone 5 Mg Tablet PO 2.5 mg Q4H PRN Administration Pain Score 4-10 Pantoprazole Sodium 40 mg 11/08/21 18:00 11/14/21 06:13 Pantoprazole Sodium 40 Mg Tablet PO 40 mg BID DHAVAL Administration Paroxetine HCl 20 mg 11/11/21 22:00 11/13/21 22:05 Paroxetine 20 Mg Tablet PO 20 mg QHS DHAVAL Administration Senna 1 tablet 11/08/21 18:00 11/14/21 06:13 Senna Tablet PO 1 tablet BID DHAVAL Administration Sodium Chloride 10 - 40 ml 11/08/21 15:53 11/14/21 06:18 0.9% Saline Lock 10 Ml Syringe IV 10 ml UD PRN Administration Open End PICC Flush Sodium Chloride 10 - 40 ml 11/08/21 15:53 0.9 % Nacl (Sterile) Posiflush 10 Ml IV UD PRN Port access or dressing change Sodium Chloride 10 - 40 ml 11/08/21 21:18 0.9% Saline Lock 10 Ml Syringe IV UD PRN Open End PICC Flush Sodium Chloride 10 - 40 ml 11/08/21 21:18 0.9 % Nacl (Sterile) Posiflush 10 Ml IV UD PRN Port access or dressing change Sodium Chloride 1 spray 11/12/21 12:07 Sodium Chloride 0.65% 1 [place].Btl NASAL TID PRN PRN NASAL DRYNESS Problem List (Last Reviewed 11/11/21 @ 20:28 by DEVON Brown) History of amputation of hallux (Acute) Decubitus ulcer of left heel, stage 2 (Acute) Acute respiratory failure with hypoxia (Acute) Acute on chronic diastolic congestive heart failure (Chronic) Diabetic polyneuropathy (Acute) Debility (Acute) Anxiety (Acute) Gastroesophageal reflux disease (Acute) Hypothyroidism (Acute) Insomnia (Acute) Allergic rhinitis (Acute) Diabetes mellitus (Acute) Depression (Acute) Hyperlipidemia (Acute) Coronary artery disease (Acute) Hypertension (Chronic) Chronic obstructive pulmonary disease (Chronic) Atrial fibrillation (Acute) SVT (supraventricular tachycardia) (Acute) Hospital-acquired pneumonia (Acute) Diabetic polyneuropathy (Acute) Vital Signs Temp Pulse Resp BP Pulse Ox O2 Del Method O2 Flow Rate 97.3 F L 76 20 H 149/65 H 96 Nasal Cannula 5 11/13/21 14:22 11/14/21 06:13 11/13/21 20:10 11/14/21 06:13 11/13/21 20:10 11/13/21 20:10 11/13/21 20:10 Oxygen Flow Rate (L/min) 5 Oxygen Delivery Method Nasal Cannula Weight: 109.883 kg Body Mass Index (BMI) 39.4 Sodium 143 mmol/L (136-145) 11/12/21 06:27 Potassium 4.1 mmol/L (3.5-5.1) 11/12/21 06:27 Chloride 105 mmol/L (98-107) 11/12/21 06:27 Carbon Dioxide 31.0 mmol/L (21.0-32.0) 11/12/21 06:27 Anion Gap 7 (5-15) 11/12/21 06:27 BUN 44 mg/dL (7-18) H 11/12/21 06:27 Creatinine 1.31 mg/dL (0.55-1.02) H 11/12/21 06:27 Est GFR (MDRD) Af Amer 52 mL/min (>60) L 11/12/21 06:27 Est GFR (MDRD) Non-Af 43 mL/min (>60) L 11/12/21 06:27 BUN/Creatinine Ratio 33.6 RATIO (10-20) H 11/12/21 06:27 Glucose 184 mg/dL (74-106) H 11/12/21 06:27 Assessment/Plan: 1. Bowel - senna 1 tablet BID, bisacodyl 10mg daily MS. Patient has not had a documented bowel movement. Monitor bowel movements, s/s diarrhea, s/s constipation.? 2. CV prophylaxis - aspirin 81 mg daily. Monitor for s/s bleeding and s/s blood clots. ASA is a BEERs criteria medication d/t increased risk of gastric bleed in patients taking oral steroids. Monitor for GI bleeding d/t prednisone usage.? 3. Hyperlipidemia - atorvastatin 80mg QHS. Continue to monitor lipids (last lipid panel 09/04/2020). Monitor for s/s rhabdomyolysis.? 4. Allergic Rhinitis - montelukast 10 mg daily, fluticasone propionate 1 spray nasal daily, ipratropium bromide 0.5mg Q4H PRN. Patient used 1 dose of ipratropium bromide on 11/08 at 2030. Monitor: congestion and PRN usage.? 5. Chronic diastolic congestive heart failure and SVT - metoprolol succinate 50 mg BID,? diltiazem 120mg daily, furosemide 80mg daily. Monitor edema, BP (last: 135/62 mmHg), HR (last 68 bpm), ejection fraction (last 55%).? 6. Type II Diabetes Mellitus - insulin glargine 30 units QHS, insulin lispro (Humalog) 7 units ACHS. Monitor: A1c (last 5.8%), POC blood glucose ACHS (ranging 219-300 mg/dL), s/s hypoglycemia? 7. Hypothyroidism - levothyroxine 88mcg daily. Monitor for s/s hypothyroidism. Continue to monitor TSH (last 3.84 uIU/mL on 11/04/21).? 8. GERD - pantoprazole 40mg BID. Monitor for breakthrough reflux.?May also encourage nonpharmacolgic treatments to help minimize exacerbations/ GERD flare-ups. 9. Hypokalemia - potassium chloride 20 meq BID. Continue to monitor potassium levels (last 4.4 mmol/L).? 10. UTI - Macrobid 100mg PO BID. Culture growing VRE, sensitive to Macrobid. Please continue to monitor for resolution of symptoms, culture results, resolution of infection. Of note, ID service was contacted regaridng best treatment options for pt based on hx/cx results. 11. Pain - APAP 1000mg Q6H PRN for pain scores 1-3, oxycodone 5mg Q4H PRN for pain scores 4-10. Patient has not yet used APAP. Last used oxycodone on? 11/10 at 0054. Pain score 5/10 in foot before administration, patient resting with eyes closed after administration. Appears pain is being managed effectively. Monitor: increased pain, PRN usage, s/s respiratory depression. Opioids are BEERs criteria medications. Continue to monitor d/t increased risk of falls and respiratory depression.? Assessment/Plan for indications treated with psychotropic medications: 12. Depression - bupropion HCl 150mg qhs, paroxetine 40mg QHS, stable chronic intermediate card tender use, GDR not recommended. Monitor for worsening depression and SI. Antidepressants are BEERs criteria medications. Monitor d/t increased risk of falls when antidepressants are combined with opioids, hypnotics, and benzodiazepines. 13. Diabetic neuropathy - gabapentin 100mg TID. GDR not appropriate at this time d/t indication for diabetic neuropathy. Monitor: efficacy of neuropathy management, confusion. Gabapentin is a BEERs criteria medication. Monitor d/t increased risk of respiratory depression when combined with opioids, such as patient?s PRN oxycodone.? 14. Insomnia - trazodone 50mg QHS, lorazepam 0.5mg QHS PRN. GDR not appropriate at this time d/t indication for insomnia. Patient has not yet used lorazepam. Monitor: sleep patterns, sedation, PRN usage. Lorazepam is a BEERs criteria medication. Monitor d/t fall and delirium risks. Medical chart and medication regimen reviewed. The following medication irregularities or issues were identified: 1. Levothyroxine - consider dose increase due to last TSH level being high if clinically indicated, thank you. 2. Atorvastatin - consider repeat lipid panel, as the last one on file is from 09/04/2020, thank you 3. Pain/insomnia/neuropathy/depression management - combination of opioids, benzodiazepines, hypnotics, and antidepressants increases patient?s chances of respiratory depression and falls. It appears patient is stable at this time. Please continue to monitor closely for any acute changes. Please consider the risks vs. benefits of maintaining the patient on this combination of medications should issues arise, thank you. Date of Note:: 11/14/21
--- NOTE | 2021-11-14 09:27 | NURSING ---
Lab called with results that urine culture positive for VRE. Dr. Deleon on unit, updated on results. Order for ID consult, called ID office and notified of consult @[phone].
[2021-11-14] MEDS: Nitrofurantoin Macrocrystals 100 MG Capsule PO (09:45)
[2021-11-14 11:21] LABS: Bedside Glucose 201 mg/dL (74-106)
--- NOTE | 2021-11-14 12:12 | CASEMGMT ---
Social Work BIMS (10/10) and PHQ-9 () completed for MDS assessment. Pt requested to complete advanced directives from previous stay and reiterated request upon readmission; however, pt's cognition fluctuates. SW to continue to monitor to determine appropriate time to complete. Graciela Trivedi, INTERNATIONAL TRADE TEACHER TAXONOMIST
--- NOTE | 2021-11-14 13:40 | PCM.CONS.GEN ---
Assessment & Plan Assessment/Plan (1) VRE (vancomycin resistant enterococcus) culture positive: PLAN: UA with no pyuria. Pt's ability to give history is limited, but denies dysuria or abd pain. No fever, normal wbc. Ucx only with 25-50k VRE. Given renal function, macrobid may not be effective. Overall, low suspicion for true infection, will stop macrobid and recommend monitoring off of abx at this point. Will follow as needed, thank you, please call with any new issues HPI Consult Data Date of Consult: 11/14/21 HPI Narrative Reason for Consultation: (+) vre HPI Narrative: SONA WILSON, is a 66 F who presented to TCU 11/08 after admit at [facility] with dyspnea, hypoxia. Concern for pneumonia and CHF, given vanc/zosyn initially. Completed course with cefepime, steroids, and iv diuresis. Now at TCU, palliative vs hospice has been discussed. Pt feeling ok, denies abd pain, no dysuria. UA and Ucx sent 11/11. Ucx now with VRE and macrobid was ordered. Full ROS performed and neg except as noted above. [facility] Medical History Acute cervical myofascial strain Acute on chronic respiratory failure with hypoxemia Amputated toe of left foot Anemia Asthma Atherosclerotic heart disease of [place] coronary artery without angina pectoris Atrial fibrillation CAD (coronary artery disease) CHF (congestive heart failure) Chronic heart failure with preserved ejection fraction (HFpEF) Chronic heel ulcer Chronic respiratory failure with hypoxia, on home oxygen therapy Chronic ulcer of great toe of left foot Closed head injury Congestive heart failure (CHF) COPD (chronic obstructive pulmonary disease) Decubitus ulcer of dorsum of foot, stage 2 Decubitus ulcer of left heel, stage 2 Decubitus ulcer of left heel, stage 3 Decubitus ulcer, heel, left, unstageable Depression Diabetes mellitus with diabetic polyneuropathy Diabetes type 2, controlled Diabetic foot ulcers Diverticulitis Essential hypertension Former smoker History of amputation of left great toe History of non-ST elevation myocardial infarction (NSTEMI) (02/24/17) Hyperlipidemia Hypothyroid Myocardial infarct Non-rheumatic tricuspid valve insufficiency Nondisplaced fracture of distal phalanx of right great toe, initial encounter for closed fracture Nonrheumatic mitral (valve) insufficiency Obesity Obstructive sleep apnea On home O2 Renal insufficiency Secondary pulmonary arterial hypertension Type 2 diabetes mellitus Home Medications bupropion HCl 300 mg 24 hr tablet, extended release 150 mg PO QHS depression 09/02/20 [History Last Taken 10/13/21] fluticasone furoate 100 mcg-vilanterol 25 mcg/dose inhalation powder (Breo Ellipta) 1 inh inhalation BID breathing 09/02/20 [History Last Taken 10/14/21] fluticasone propionate 50 mcg/actuation nasal spray,suspension 1 spray intranasal DAILY PRN Allergies 09/02/20 [History Last Taken 09/02/20] furosemide 80 mg tablet 80 mg PO DAILY water pill 09/02/20 [History Last Taken 10/14/21] levothyroxine 88 mcg tablet 88 mcg PO DAILY thyroid 09/02/20 [History Last Taken 10/14/21] lorazepam 1 mg tablet 0.5 mg PO QHS anxiety 09/02/20 [History Last Taken 10/13/21] montelukast 10 mg tablet 10 mg PO DAILY allergies 09/02/20 [History Last Taken 10/14/21] trazodone 100 mg tablet 50 mg PO QHS sleep 09/02/20 [History Last Taken 10/13/21] aspirin 81 mg tablet,delayed release (Adult Aspirin Regimen) 81 mg PO DAILY heart 05/17/21 [History Last Taken 10/14/21 09:30] gabapentin 100 mg capsule (Neurontin) 100 mg PO TID nerve pain 08/25/21 [History Last Taken 10/14/21] insulin detemir U-100 100 unit/mL (3 mL) subcutaneous pen 30 unit subcut QHS blood sugar 09/02/21 [History Last Taken 10/13/21] insulin lispro 100 unit/mL subcutaneous pen 7 unit subcut ACHS blood sugar 09/02/21 [History Last Taken 10/14/21] ipratropium 0.5 mg-albuterol 3 mg (2.5 mg base)/3 mL nebulization soln 3 ml inhalation BID PRN sob 09/02/21 [History Last Taken Unknown] paroxetine HCl 30 mg tablet 40 mg PO QHS mental health 09/02/21 [History Last Taken 10/13/21] atorvastatin 80 mg tablet 80 mg PO QHS Cholestrol 10/22/21 [History Last Taken Unknown] pantoprazole 40 mg tablet,delayed release 40 mg PO BID GERD 10/22/21 [History Last Taken Unknown] acetaminophen 500 mg tablet 1,000 mg PO Q8H PRN Pain 11/03/21 [History Last Taken Unknown] arginine 7 gram-glutamine 7 gram-calcium HMB 1.5 gram oral powder pack (Say) 1 ea PO BID wound healing 11/03/21 [History Last Taken Unknown] bisacodyl 10 mg rectal suppository 10 mg NC DAILY PRN Constipation 11/03/21 [History Last Taken Unknown] collagenase clostridium histo. 250 unit/gram topical ointment (Santyl) 1 applic topical DAILY wound 11/03/21 [History Last Taken Unknown] menthol 0.44 %-zinc oxide 20.6 % topical ointment (Calmoseptine) 1 applic topical BID buttocks 11/03/21 [History Last Taken Unknown] nystatin 100,000 unit/gram topical powder 1 applic topical BID skin irritation 11/03/21 [History Last Taken Unknown] oxycodone 5 mg tablet 5 mg PO Q4H PRN Pain 11/03/21 [History Last Taken Unknown] potassium chloride 20 mEq tablet,extended release 20 meq PO BID supplement 11/03/21 [History Last Taken Unknown] sennosides 8.6 mg tablet (senna) 17.2 mg PO BID stool softener 11/03/21 [History Last Taken Unknown] cefdinir 300 mg capsule 300 mg PO Q12 ATB 11/08/21 [History Last Taken Unknown] diltiazem HCl 120 mg capsule,extended release 24 hr 120 mg PO DAILY heart 11/08/21 [History Last Taken Unknown] metoprolol succinate 50 mg tablet,extended release 24 hr 50 mg PO BID BP 11/08/21 [History Last Taken Unknown] prednisone 20 mg tablet 40 mg PO BREAKFAST antiinflammatory 11/08/21 [History Last Taken Unknown] Allergy/AdvReac Type Severity Reaction Status Date / Time Sulfa (Sulfonamide Allergy Anaphylaxis Verified 11/03/21 08:07 Antibiotics) sulfur dioxide Allergy Anaphylaxis Verified 11/03/21 08:07 Family History Grandmother Diabetes Mother Heart disease Surgical History H/O right heart catheterization History of cataract surgery History of coronary artery stent placement (02/24/17) Tubal ligation status Social History household members: none housing: other details: [facility]. Smoking Status: Former smoker how long ago did patient quit smokin alcohol intake: former year quit: 1999 substance use type: does not use caffeine: Yes Type: carbonated beverages and tea Physical Exam Const alert and no apparent distress Constitutional Narrative: oriented x2 General Appearance: lethargic HEENT normocephalic and head/scalp atraumatic Neck supple and nodes Resp normal air movement and clear to auscultation bilaterally Cardio regular rate and regular rhythm GI soft to palpation, non-tender and non-distended Extremity General Extremity: edema Skin Skin Narrative: some rash/scabbing on face Neuro CN's II-XII intact bilaterally Lab / Micro Data Attestation: I reviewed the patient's lab results. Result Diagrams: 11/11/21 15:07 11/12/21 06:27 Labs: Laboratory Results - last 24 hr 11/13/21 16:23: POC Glucose 178 H 11/13/21 21:23: POC Glucose 197 H 11/14/21 06:10: POC Glucose 193 H 11/14/21 10:54: POC Glucose 201 H Micro: Microbiology 11/11/21 16:17 Urine, Catheterized Urine Culture - Final Vancomycin Resist. E. faecium
[2021-11-14] MEDS: Collagenase 30gm Tube 1 APPLIC TOPICAL (15:33)
[2021-11-14 16:45] LABS: Bedside Glucose 198 mg/dL (74-106)
[2021-11-14 21:36] LABS: Bedside Glucose 173 mg/dL (74-106)
[2021-11-14] MEDS: LORazepam 1 MG Tablet PO (21:42)
[2021-11-14] MEDS: Paroxetine 20 MG Tablet PO (21:43)
[2021-11-14] MEDS: Atorvastatin Calcium 40 MG Tablet PO (21:45)
[2021-11-14] MEDS: Insulin Glargine-YFGN 100 UNIT/ML Pen 30 UNIT SC (21:46)
[2021-11-15] VITALS (7 sets, daily range): BP systolic 144–163; BP diastolic 53–70; PULSE 76–80; RESP 14–18; TEMP 36.6; O2SAT 98–100
[2021-11-15] MEDS: oxyCODONE 5 MG Tablet 2.5 MG PO (02:49)
[2021-11-15] MEDS: hydrOXYzine PAM 25 MG Capsule 50 MG PO (02:50)
[2021-11-15] MEDS: 0.9% Saline Lock 10 ML Syringe IV ×2 (02:53→12:19)
--- NOTE | 2021-11-15 04:19 | NURSING ---
Patient continues to be confused, frequently restless and awake throughout the night despite RTN Ativan at HS. Prefers to sleep in recliner. Encouraged to elevate BLE. Dressing remains intact to RLE. Frequent 1:1 provided to promote comfort. No attempts to self-transfer at this time, yells out frequently. No distress observed or reported. Call light in reach.
[2021-11-15] MEDS: Juven (unflavored) Packet 1 PACKET PO ×2 (05:03→17:49)
[2021-11-15] MEDS: Levothyroxine 88 MCG Tablet PO (05:03)
[2021-11-15] MEDS: Pantoprazole Sodium 40 MG Tablet PO ×2 (05:03→17:49)
[2021-11-15] MEDS: Furosemide 80 MG Tablet PO (05:03)
[2021-11-15] MEDS: Metoprolol(XL)Succ 50 MG Tablet PO ×2 (05:04→17:49)
[2021-11-15] MEDS: Nystatin Powder 15gm Bottle 1 APPLIC TOPICAL ×2 (05:04→17:56)
[2021-11-15] MEDS: Acetaminophen 500 MG Tablet 1000 MG PO (05:04)
[2021-11-15] MEDS: buPROPion (XL) 150 MG TABLET.XL PO (05:05)
[2021-11-15] MEDS: Senna Tablet 1 TABLET PO ×2 (05:05→17:49)
[2021-11-15] MEDS: Menthol/Lanolin/Calamine/Znox 113 GM Tube 1 APPLIC TOPICAL ×2 (05:06→17:57)
[2021-11-15 06:36] LABS: Bedside Glucose 160 mg/dL (74-106)
[2021-11-15] MEDS: Ipratropium/Albuterol Sulfate 3 ML AMPUL.NEB INHALATION ×2 (07:23→19:21)
[2021-11-15] MEDS: Budesonide Respules 0.5 MG/2 ML AMPUL.NEB. INHALATION ×2 (07:23→19:21)
[2021-11-15] MEDS: Insulin Lispro 100 UNIT/ML INSULN.PEN 10 UNIT SC ×3 (08:47→17:49)
[2021-11-15] MEDS: Aspirin E.C. 81 MG Tablet PO (08:47)
--- NOTE | 2021-11-15 10:43 | CASEMGMT ---
Social Work Left message with son to follow up, offered to answer any questions, inquired about palliative consents. Graciela Trivedi, ASH KIER BOILER HOME DECORATOR
[2021-11-15 11:16] LABS: Bedside Glucose 237 mg/dL (74-106)
[2021-11-15] MEDS: Collagenase 30gm Tube 1 APPLIC TOPICAL (12:20)
--- NOTE | 2021-11-15 12:54 | WOUNDNOTE ---
wound photo: right heel
--- NOTE | 2021-11-15 12:54 | WOUNDNOTE ---
wound photo: left foot
--- NOTE | 2021-11-15 12:55 | WOUNDNOTE ---
wound photo: left foot
--- NOTE | 2021-11-15 12:56 | WOUNDNOTE ---
wound photo: left heel
[2021-11-15 16:21] LABS: Bedside Glucose 212 mg/dL (74-106)
[2021-11-15] MEDS: Doxepin Hcl 25 MG Capsule PO (21:21)
[2021-11-15] MEDS: LORazepam 1 MG Tablet PO (21:21)
[2021-11-15] MEDS: Atorvastatin Calcium 40 MG Tablet PO (21:21)
[2021-11-15] MEDS: Insulin Glargine-YFGN 100 UNIT/ML Pen 30 UNIT SC (21:21)
[2021-11-15] MEDS: Paroxetine 20 MG Tablet PO (21:21)
[2021-11-15 21:31] LABS: Bedside Glucose 284 mg/dL (74-106)
[2021-11-16] VITALS (8 sets, daily range): BP systolic 140–144; BP diastolic 62–67; PULSE 72–79; RESP 18–22; TEMP 36.1; O2SAT 93–98
--- NOTE | 2021-11-16 04:12 | PCA ---
patient has been putting call light on since 2am demanding to get dressed. when explained to her the time patient kept saying we are lying and that everyone else is up but her. patient called again at 415am demanding to be dressed that she was sitting naked in room, armored vehicle officer went in and helped patient put gown back on and explained that she needs to try and sleep before breakfast when patient asked what time it was and what time breakfast came she stated armored vehicle officer was lying to her again
[2021-11-16] MEDS: Pantoprazole Sodium 40 MG Tablet PO ×2 (05:24→17:51)
[2021-11-16] MEDS: Metoprolol(XL)Succ 50 MG Tablet PO ×2 (05:24→17:50)
[2021-11-16] MEDS: Furosemide 80 MG Tablet PO (05:24)
[2021-11-16] MEDS: Levothyroxine 88 MCG Tablet PO (05:24)
[2021-11-16] MEDS: buPROPion (XL) 150 MG TABLET.XL PO (05:24)
[2021-11-16] MEDS: Juven (unflavored) Packet 1 PACKET PO ×2 (05:24→17:51)
[2021-11-16] MEDS: Senna Tablet 1 TABLET PO ×2 (05:24→17:50)
[2021-11-16] MEDS: Nystatin Powder 15gm Bottle 1 APPLIC TOPICAL ×2 (05:29→17:54)
[2021-11-16] MEDS: Menthol/Lanolin/Calamine/Znox 113 GM Tube 1 APPLIC TOPICAL ×2 (05:30→17:55)
[2021-11-16 05:42] LABS: Absolute Lymphocyte Count 0.82 X10^3/uL (0.83-4.51); Basophil# 0.02 X10^3/uL; Basophil% 0.3 % (0-1); Eosinophil# 0.12 X10^3/uL; Eosinophils% 1.6 % (0-5); Hematocrit 26.7 % (37-47); Hemoglobin 8.2 g/dL (12.0-15.0); Lymphocyte # 0.82 X10^3/ul (0.83-4.51); Lymphocyte % 10.6 % (19-41); Mean Corp Hgb Conc 30.7 g/dL (32-36); Mean Corpuscular Hgb 28.7 pg (27.0-32.0); Mean Corpuscular Volume 93.4 fL (81-99); Monocyte# 0.72 X10^3/uL; Monocyte% 9.3 % (0-10); NRBC Flagged by Analyzer 0 % (0-5); Neutrophil # 6.01 X10^3/uL (2.7-7.7); Neutrophil % 77.7 % (47-70); Platelet Count 158 K/mm3 (150-450); RBC Distribution Width CV 16.3 % (11.6-14.6); RBC Distribution Width SD 55.3 fl (35.1-43.9); Red Blood Count 2.86 M/mm3 (4.2-5.4); White Blood Count 7.7 K/mm3 (4.4-11.0)
[2021-11-16 06:11] LABS: Anion Gap 5 (5-15); BUN 21 mg/dL (7-18); BUN/Creat Ratio 23.4 RATIO (10-20); Calcium,Total 8.8 mg/dL (8.5-10.1); Chloride 102 mmol/L (98-107); EST Glomerular Filtration Rate 67 mL/min (>60); Est Glom Filt Rate - Afr Amer 81 mL/min (>60); Estimated Creatinine Clearance 56.08 ml/min; Glucose 211 mg/dL (74-106); Potassium 3.7 mmol/L (3.5-5.1); Sodium Level 142 mmol/L (136-145)
[2021-11-16] MEDS: Budesonide Respules 0.5 MG/2 ML AMPUL.NEB. INHALATION ×2 (06:31→19:02)
[2021-11-16] MEDS: Ipratropium/Albuterol Sulfate 3 ML AMPUL.NEB INHALATION ×3 (06:31→19:02)
[2021-11-16 06:40] LABS: Bedside Glucose 226 mg/dL (74-106)
--- NOTE | 2021-11-16 07:39 | NURSING ---
Addendum entered by Danya Castro 11/16/21 08:39: zofran given. has not vomited, c/o upset stomach w/nausea. Original Note: Patient c/o nausea before breakfast, with dry heaving noted. No emesis. Patient ate breakfast.
[2021-11-16] MEDS: Aspirin E.C. 81 MG Tablet PO (08:25)
[2021-11-16] MEDS: Ondansetron ODT 4 MG Tablet PO (08:25)
[2021-11-16] MEDS: Insulin Lispro 100 UNIT/ML INSULN.PEN 10 UNIT SC ×3 (08:27→17:53)
[2021-11-16] MEDS: Collagenase 30gm Tube 1 APPLIC TOPICAL (08:30)
[2021-11-16] MEDS: BACITRACIN 15 GM Tube 1 APPLIC TOPICAL ×3 (09:42→21:12)
--- NOTE | 2021-11-16 10:48 | CASEMGMT ---
Social Work IDT met with patient and son via conference call for care plan meeting. Discussed patient's progress in PT/OT/SN. Educated to [facility] insurance with NRD 11/17 with [facility] 11/25 and continued stay is not guaranteed. Confirmed pt's wishes regarding DC - pt does not want to return to [facility]; agreeable to [facility] then AL, when/if able. Pt/son requesting handouts/information on [facility]. SW to provide. SW educated to pt be limited with AL waiver options - [facility], [facility] and [facility]. [facility] and [facility] both have waitlists for AL and a SNF connected. Encouraged son to tour facilities. Son agreed. SW offered to have [facility] admissions contact son to schedule tour - son appreciative. Inquired about palliative consents. Son stated he is meeting with siblings to review documents and will sign once understanding. SW offered to assist with questions. Son appreciative. SW provided [facility] and [facility] information via [employer] Guide link to son to review. Provided brochures and website information for [facility] in pts room. Pt appreciative. GREG updated Maya at [facility]. SW to continue to follow. Graciela Trivedi, JULIANNE BOTTOM TURNER
[2021-11-16 11:15] LABS: Bedside Glucose 269 mg/dL (74-106)
--- NOTE | 2021-11-16 13:26 | NURSING ---
Laboratory Clerk Note; MDS & Activity Asst; complete
[2021-11-16 16:35] LABS: Bedside Glucose 118 mg/dL (74-106)
[2021-11-16] MEDS: LORazepam 1 MG Tablet PO (21:12)
[2021-11-16] MEDS: Insulin Glargine-YFGN 100 UNIT/ML Pen 30 UNIT SC (21:13)
[2021-11-16] MEDS: Paroxetine 20 MG Tablet 40 MG PO (21:13)
[2021-11-16] MEDS: Atorvastatin Calcium 40 MG Tablet PO (21:13)
[2021-11-16 21:31] LABS: Bedside Glucose 165 mg/dL (74-106)
[2021-11-17] MEDS: Juven (unflavored) Packet 1 PACKET PO ×2 (05:24→18:12)
[2021-11-17] MEDS: Senna Tablet 1 TABLET PO ×2 (05:25→18:12)
[2021-11-17] MEDS: Furosemide 80 MG Tablet PO (05:25)
[2021-11-17] MEDS: Pantoprazole Sodium 40 MG Tablet PO ×2 (05:25→18:12)
[2021-11-17] MEDS: Levothyroxine 88 MCG Tablet PO (05:25)
[2021-11-17] MEDS: BACITRACIN 15 GM Tube 1 APPLIC TOPICAL ×4 (05:25→21:53)
[2021-11-17] MEDS: Menthol/Lanolin/Calamine/Znox 113 GM Tube 1 APPLIC TOPICAL ×2 (05:26→18:13)
[2021-11-17] MEDS: Nystatin Powder 15gm Bottle 1 APPLIC TOPICAL ×2 (05:26→18:13)
[2021-11-17 05:27] VITALS: BP 162/62; PULSE 78
[2021-11-17] MEDS: Metoprolol(XL)Succ 50 MG Tablet PO ×2 (05:27→18:13)
[2021-11-17] MEDS: oxyCODONE 5 MG Tablet 2.5 MG PO (05:30)
[2021-11-17] MEDS: buPROPion (XL) 150 MG TABLET.XL PO (05:36)
[2021-11-17 06:35] LABS: Bedside Glucose 120 mg/dL (74-106)
[2021-11-17] MEDS: Ipratropium/Albuterol Sulfate 3 ML AMPUL.NEB INHALATION (07:14)
[2021-11-17] MEDS: Budesonide Respules 0.5 MG/2 ML AMPUL.NEB. INHALATION ×2 (07:14→19:02)
[2021-11-17 07:30] VITALS: PULSE 83; RESP 16; O2SAT 95
[2021-11-17] MEDS: Insulin Lispro 100 UNIT/ML INSULN.PEN 10 UNIT SC ×3 (08:11→18:12)
[2021-11-17] MEDS: Aspirin E.C. 81 MG Tablet PO (08:12)
[2021-11-17] MEDS: Acetaminophen 500 MG Tablet 1000 MG PO (09:11)
--- NOTE | 2021-11-17 10:13 | PCA ---
Pt. rang to go to this AUTO WASHER answer call light and went to pt. room to assisted . Pt has b'fast try on pull out tray table . pt. pushed tray table in so she could stand and b'fast tray fell onto her . pt. states that tray fell on her foot . this truck bracer informed nursing.
[2021-11-17 11:30] LABS: Bedside Glucose 192 mg/dL (74-106)
[2021-11-17] MEDS: Collagenase 30gm Tube 1 APPLIC TOPICAL (11:53)
--- NOTE | 2021-11-17 12:13 | MDS.RN ---
Information for the mds was obtained from review of the clinical record, interview of resident, staff, and direct observation of resident's care.
--- NOTE | 2021-11-17 13:31 | PN_ITS ---
Subjective Subjective Patient is a 66-year-old female who is seen bedside today resting in Kellie chair with feet elevated.? She is status post left hallux amputation on 10/21/2021.? She denies any constitutional symptoms today.? She does complain of weakness today. She is a bit confused today. She has no further complaints today. Objective Data Objective Data Vital Signs: Vital Signs Temp Pulse Resp BP Pulse Ox O2 Del Method O2 Flow Rate 97.0 F L 83 16 162/62 H 95 Nasal Cannula 3 11/16/21 16:00 11/17/21 07:30 11/17/21 07:30 11/17/21 05:27 11/17/21 07:30 11/17/21 07:30 11/17/21 09:56 Oxygen Flow Rate (L/min) 3 Oxygen Delivery Method Nasal Cannula Weight: 100.924 kg Body Mass Index (BMI) 39.4 Intake & Output: Intake and Output for Last 24 Hours 11/15/21 11/16/21 11/17/21 23:59 23:59 23:59 Intake Total 600 / 600 300 / 300 240 / 240 Output Total 200 / 200 Balance 600 / 600 100 / 100 240 / 240 Lab / Micro Data Result Diagrams: 11/16/21 05:32 11/16/21 05:32 Labs: Laboratory Results - last 24 hr 11/16/21 16:07: POC Glucose 118 H 11/16/21 21:03: POC Glucose 165 H 11/17/21 06:11: POC Glucose 120 H 11/17/21 11:05: POC Glucose 192 H Micro: Microbiology 11/15/21 16:05 Nasal Secretion SARS-CoV-2 Antigen (Rapid) - Final 11/11/21 16:17 Urine, Catheterized Urine Culture - Final Vancomycin Resist. E. faecium 11/11/21 15:40 Mucosa - Nasopharyngeal Respiratory Panel (PCR) - Final 11/11/21 15:00 Nasal Secretion SARS-CoV-2 Antigen (Rapid) - Final Physical Exam Const alert, oriented x3 and no apparent distress General Appearance: cooperative HEENT normocephalic Eyes General Eye: normal appearance of both eyes Neck General: normal visual inspection Lymph Lymphatic: no lymphadenopathy noted and no lymphedema noted Resp normal respiratory effort Cardio regular rate and regular rhythm Extremity normal capillary refill, no joint enlargement, no calf tenderness and no pedal edema Skin no rashes or lesions noted, skin turgor normal and no jaundice Skin Narrative: Surgical site well coapted. No signs of infection. There is a central area of maceration at the incision site. Wound Narrative: Left heel decubitus ulceration with stable eschar and no local signs of infection. 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 Nursing reports bouts of confusion. She has returned to the transitional care unit.? Due to her worsening condition palliative care was consulted and met with patient and family for their recommendations.? Palliative versus hospice was discussed.? Patient's family does not want to consider these options at this current time. She does admit to some pain in the left foot secondary to swelling. Site was inspected, sutures were removed today. Skin well coapted. Area of maceration at central incision site of left hallux amputation stump site.? No signs of infection. There is rubor about the incision site and first metatarsal head without increased temperature, this is subsiding.? There is a slight serosanguineous drainage from the central aspect of the incision site secondary to swelling.? No purulent drainage, no malodor, no palpable fluctuance. At this point in time her amputation stump site looks well in terms of healing progress and there is no evidence of necrotic tissue about the incision site. She does have a small area of of ecchymosis/eshcar at the dorsomedial aspect of the first metatarsal head, this remains unchanged.? I will continue to watch the site for any changes however this remains stable currently. Dressings changed consisted of Betadine, 4 x 4 gauze, ABD, Kerlix, and an Kenny wrap rolled onto the foot. Santyl applied to left heel and dressed with Adaptic 4 x 4 gauze and an ABD and Kerlix. Surgery 10/21/2021: Secondary to her dry gangrene there was also a portion of exposed bone/joint capsule of the proximal phalanx head secondary to amount of tissue at the left hallux, tissue and bone were cultured and sent to micro & pathology. Surgical cultures 10/21/2021: Tissue culture left hallux demonstrates Proteus Mirabilis.? Bone culture left hallux demonstrates Proteus Mirabilis. Last WBC was 9.4 and within normal limits on 11/11/2021. Will continue to evaluate.? She has finished her antibiotic therapy.? I again stressed with patient and nursing staff that she needs to continue to elevate the left lower extremity at all times of rest as continued swelling will create dehiscence of the surgical site. Nursing may change dressings daily.? May apply Santyl to the left heel daily.? I discussed continued offloading of the left heel in a waffle boot/Prevalon boot for treatment of left heel decubitus ulceration x2. Patient may be partial weightbearing to the left heel? in a surgical shoe for therapy sessions and bathroom privileges. She may continue her current pain management of oxyir as needed. She is elevate the left foot at all times of rest to control postoperative edema I will continue to follow while in house for continued postsurgical care. At the time of discharge she is recommended to follow-up with me in the wound care center for her left heel ulcer. Jr. Leny MorganP.M. [facility] [phone] Note: Site Tour speech recognition director correctional agency software was used to create portions of this document. Sound-alike and misspelled words, as well as other director correctional agency errors may be contained in the documentation.
--- NOTE | 2021-11-17 15:29 | CHAPLAIN ---
Type of Pastoral Visit ___ Initial Visit _x__ Follow-up Visit ___ On-call Visit ___ General Patient Visit ___ Spiritual Assessment ___ Family Conference ___ Bereavement ___ Rapid Response ___ Code Blue ___ Other (describe below) Pastoral Care Referral From _x__ Patient ___ Family ___ Nurse ___ Physician ___ Electrophysiologist ___ Gear And Spline Grinder ___ Other (describe below) Sacrament/Intervention _x__ Active listening ___ Anointing ___ Bahai ___ Bereavement ___ Communion ___ Charo exploration ___ ___ Life review _x__ Prayer ___ Reconciliation ___ Sacrament of Sick _x__ Supportive presence ___ Wedding ___ Other (describe below) Pastoral Comments patient is very welcoming; pt states she is pleased with doctor's report of foot healing well; pt states that she gets lonely at nights; casual conversation and open ended questions so help pt open up about any concerns; pt presents with a positive attitude and outlook; pt welcomes prayer and presence
[2021-11-17 16:00] VITALS: BP 141/57; PULSE 81; RESP 16; TEMP 36.7; O2SAT 96
[2021-11-17 17:06] LABS: Bedside Glucose 174 mg/dL (74-106)
[2021-11-17 18:13] VITALS: BP 139/50; PULSE 78
[2021-11-17 19:02] VITALS: PULSE 76; RESP 18
[2021-11-17] MEDS: Ipratropium 0.5 MG/2.5 ML SOLUTION INHALATION (19:02)
[2021-11-17 21:50] LABS: Bedside Glucose 246 mg/dL (74-106)
[2021-11-17] MEDS: LORazepam 1 MG Tablet PO (21:53)
[2021-11-17] MEDS: Paroxetine 20 MG Tablet 40 MG PO (21:54)
[2021-11-17] MEDS: Atorvastatin Calcium 40 MG Tablet PO (21:54)
[2021-11-17] MEDS: Insulin Glargine-YFGN 100 UNIT/ML Pen 30 UNIT SC (21:58)
[2021-11-17 22:00] VITALS: O2SAT 98
[2021-11-18] VITALS (7 sets, daily range): BP systolic 124–155; BP diastolic 54–63; PULSE 67–82; RESP 16–20; TEMP 36.1; O2SAT 91–97
[2021-11-18] MEDS: oxyCODONE 5 MG Tablet 2.5 MG PO (02:36)
[2021-11-18] MEDS: Acetaminophen 500 MG Tablet 1000 MG PO (02:37)
[2021-11-18] MEDS: BACITRACIN 15 GM Tube 1 APPLIC TOPICAL ×4 (06:36→21:27)
[2021-11-18] MEDS: Senna Tablet 1 TABLET PO ×2 (06:37→16:47)
[2021-11-18] MEDS: Juven (unflavored) Packet 1 PACKET PO ×2 (06:37→16:47)
[2021-11-18] MEDS: Levothyroxine 88 MCG Tablet PO (06:38)
[2021-11-18] MEDS: Metoprolol(XL)Succ 50 MG Tablet PO ×2 (06:38→16:47)
[2021-11-18] MEDS: buPROPion (XL) 150 MG TABLET.XL PO (06:38)
[2021-11-18] MEDS: Pantoprazole Sodium 40 MG Tablet PO ×2 (06:38→16:47)
[2021-11-18] MEDS: Menthol/Lanolin/Calamine/Znox 113 GM Tube 1 APPLIC TOPICAL ×2 (06:38→16:50)
[2021-11-18] MEDS: Furosemide 80 MG Tablet PO (06:38)
[2021-11-18] MEDS: Nystatin Powder 15gm Bottle 1 APPLIC TOPICAL ×2 (06:39→16:50)
[2021-11-18] MEDS: Collagenase 30gm Tube 1 APPLIC TOPICAL (06:39)
[2021-11-18 06:46] LABS: Bedside Glucose 188 mg/dL (74-106)
[2021-11-18] MEDS: Ipratropium 0.5 MG/2.5 ML SOLUTION INHALATION ×3 (07:25→20:55)
[2021-11-18] MEDS: Budesonide Respules 0.5 MG/2 ML AMPUL.NEB. INHALATION ×2 (07:25→21:00)
[2021-11-18] MEDS: Aspirin E.C. 81 MG Tablet PO (08:02)
[2021-11-18] MEDS: Insulin Lispro 100 UNIT/ML INSULN.PEN 10 UNIT SC ×3 (08:02→18:04)
[2021-11-18 11:00] LABS: Bedside Glucose 180 mg/dL (74-106)
--- NOTE | 2021-11-18 11:13 | WOUNDNOTE ---
wound photo: left foot
--- NOTE | 2021-11-18 11:15 | WOUNDNOTE ---
wound photo: left foot
--- NOTE | 2021-11-18 11:16 | WOUNDNOTE ---
wound photo: left foot
--- NOTE | 2021-11-18 15:09 | CASEMGMT ---
Social Work Patient inquired about discharge plan. This social media director reminding patient of plan to discharge to [facility], patient voiced understanding to this. Carolann Quintanilla MSW, BROWN-S
[2021-11-18 16:06] LABS: Bedside Glucose 203 mg/dL (74-106)
[2021-11-18] MEDS: 0.9% Saline Lock 10 ML Syringe IV (16:45)
[2021-11-18] MEDS: LORazepam 1 MG Tablet PO (21:27)
[2021-11-18] MEDS: Atorvastatin Calcium 40 MG Tablet PO (21:28)
[2021-11-18] MEDS: Paroxetine 20 MG Tablet 40 MG PO (21:29)
[2021-11-18] MEDS: Insulin Glargine-YFGN 100 UNIT/ML Pen 30 UNIT SC (21:35)
[2021-11-18 21:55] LABS: Bedside Glucose 178 mg/dL (74-106)
[2021-11-19] VITALS (7 sets, daily range): BP systolic 132–136; BP diastolic 62–63; PULSE 76–91; RESP 18–21; TEMP 35.9; O2SAT 92–99
[2021-11-19] MEDS: Menthol/Lanolin/Calamine/Znox 113 GM Tube 1 APPLIC TOPICAL ×2 (06:02→17:05)
[2021-11-19] MEDS: BACITRACIN 15 GM Tube 1 APPLIC TOPICAL ×4 (06:02→21:05)
[2021-11-19] MEDS: Nystatin Powder 15gm Bottle 1 APPLIC TOPICAL ×2 (06:03→17:06)
[2021-11-19] MEDS: Juven (unflavored) Packet 1 PACKET PO ×2 (06:03→17:04)
[2021-11-19] MEDS: Furosemide 80 MG Tablet PO (06:03)
[2021-11-19] MEDS: Pantoprazole Sodium 40 MG Tablet PO ×2 (06:03→17:04)
[2021-11-19] MEDS: Metoprolol(XL)Succ 50 MG Tablet PO ×2 (06:04→17:05)
[2021-11-19] MEDS: buPROPion (XL) 150 MG TABLET.XL PO (06:04)
[2021-11-19] MEDS: Levothyroxine 88 MCG Tablet PO (06:04)
[2021-11-19] MEDS: Senna Tablet 1 TABLET PO ×2 (06:04→17:04)
[2021-11-19 06:41] LABS: Bedside Glucose 216 mg/dL (74-106)
[2021-11-19] MEDS: Ipratropium 0.5 MG/2.5 ML SOLUTION INHALATION ×3 (07:36→19:07)
[2021-11-19] MEDS: Budesonide Respules 0.5 MG/2 ML AMPUL.NEB. INHALATION ×2 (07:36→19:07)
[2021-11-19] MEDS: Insulin Lispro 100 UNIT/ML INSULN.PEN 10 UNIT SC ×2 (08:03→11:54)
[2021-11-19] MEDS: Aspirin E.C. 81 MG Tablet PO (08:04)
[2021-11-19] MEDS: 0.9% Saline Lock 10 ML Syringe IV (09:32)
[2021-11-19] MEDS: Collagenase 30gm Tube 1 APPLIC TOPICAL (09:52)
[2021-11-19 11:45] LABS: Bedside Glucose 183 mg/dL (74-106)
[2021-11-19] MEDS: Bisacodyl 10 MG Suppository RC (14:03)
[2021-11-19 16:16] LABS: Bedside Glucose 71 mg/dL (74-106)
--- NOTE | 2021-11-19 19:16 | NURSING ---
dulcolax suppos given d/t pt c/o constipation today with XLG results x3 today.
[2021-11-19] MEDS: Atorvastatin Calcium 40 MG Tablet PO (21:04)
[2021-11-19] MEDS: Paroxetine 20 MG Tablet 40 MG PO (21:04)
[2021-11-19] MEDS: LORazepam 1 MG Tablet PO (21:05)
[2021-11-19 21:45] LABS: Bedside Glucose 228 mg/dL (74-106)
[2021-11-19] MEDS: Insulin Glargine-YFGN 100 UNIT/ML Pen 30 UNIT SC (22:18)
[2021-11-20] MEDS: Acetaminophen 500 MG Tablet 1000 MG PO (01:18)
[2021-11-20] MEDS: oxyCODONE 5 MG Tablet 2.5 MG PO (01:19)
[2021-11-20 06:31] LABS: Bedside Glucose 181 mg/dL (74-106)
[2021-11-20] MEDS: Senna Tablet 1 TABLET PO (06:50)
[2021-11-20] MEDS: Levothyroxine 88 MCG Tablet PO (06:50)
[2021-11-20] MEDS: Pantoprazole Sodium 40 MG Tablet PO ×2 (06:50→17:22)
[2021-11-20] MEDS: Juven (unflavored) Packet 1 PACKET PO ×2 (06:50→17:20)
[2021-11-20] MEDS: Furosemide 80 MG Tablet PO (06:50)
[2021-11-20] MEDS: buPROPion (XL) 150 MG TABLET.XL PO (06:52)
[2021-11-20 06:55] VITALS: BP 157/83; PULSE 79
[2021-11-20] MEDS: BACITRACIN 15 GM Tube 1 APPLIC TOPICAL ×4 (06:55→21:08)
[2021-11-20] MEDS: Menthol/Lanolin/Calamine/Znox 113 GM Tube 1 APPLIC TOPICAL ×2 (06:55→17:23)
[2021-11-20] MEDS: Metoprolol(XL)Succ 50 MG Tablet PO ×2 (06:55→17:22)
[2021-11-20] MEDS: Nystatin Powder 15gm Bottle 1 APPLIC TOPICAL ×2 (06:56→17:23)
[2021-11-20 07:29] VITALS: PULSE 80; RESP 19; O2SAT 98
[2021-11-20] MEDS: Budesonide Respules 0.5 MG/2 ML AMPUL.NEB. INHALATION (07:29)
[2021-11-20] MEDS: Ipratropium 0.5 MG/2.5 ML SOLUTION INHALATION ×2 (07:29→13:50)
[2021-11-20] MEDS: Insulin Lispro 100 UNIT/ML INSULN.PEN 10 UNIT SC ×3 (07:43→17:23)
[2021-11-20] MEDS: Aspirin E.C. 81 MG Tablet PO (07:43)
[2021-11-20] MEDS: 0.9% Saline Lock 10 ML Syringe IV ×2 (07:44→21:10)
[2021-11-20 12:06] LABS: Bedside Glucose 150 mg/dL (74-106)
[2021-11-20 13:50] VITALS: PULSE 76; RESP 18; O2SAT 86
[2021-11-20 16:00] VITALS: BP 145/58; PULSE 72; RESP 21; TEMP 36.3; O2SAT 97
[2021-11-20 16:26] LABS: Bedside Glucose 137 mg/dL (74-106)
[2021-11-20 17:22] VITALS: PULSE 72
[2021-11-20] MEDS: Paroxetine 20 MG Tablet 40 MG PO (21:07)
[2021-11-20] MEDS: Atorvastatin Calcium 40 MG Tablet PO (21:07)
[2021-11-20] MEDS: LORazepam 1 MG Tablet PO (21:07)
[2021-11-20] MEDS: Insulin Glargine-YFGN 100 UNIT/ML Pen 30 UNIT SC (21:16)
[2021-11-20 21:41] LABS: Bedside Glucose 214 mg/dL (74-106)
[2021-11-20] MEDS: Collagenase 30gm Tube 1 APPLIC TOPICAL (22:52)
--- NOTE | 2021-11-20 23:15 | NURSING ---
Dressing change completed to left heel and site of amputation to left great toe per dr order. Mepliex removed from rt heel and distal end of dressing was curled. ABD folded in half applied, wrapped w/ kerlix, and secured w/ paper tape to pad and protect. Pillow placed under BLE to float heels. Pt tolerated well.
[2021-11-21] MEDS: oxyCODONE 5 MG Tablet 2.5 MG PO (02:51)
[2021-11-21] MEDS: Acetaminophen 500 MG Tablet 1000 MG PO (02:51)
[2021-11-21] MEDS: BACITRACIN 15 GM Tube 1 APPLIC TOPICAL ×4 (06:30→22:21)
[2021-11-21] MEDS: Furosemide 80 MG Tablet PO (06:31)
[2021-11-21] MEDS: Menthol/Lanolin/Calamine/Znox 113 GM Tube 1 APPLIC TOPICAL ×2 (06:31→17:37)
[2021-11-21] MEDS: Pantoprazole Sodium 40 MG Tablet PO ×2 (06:32→17:38)
[2021-11-21] MEDS: Levothyroxine 88 MCG Tablet PO (06:32)
[2021-11-21] MEDS: buPROPion (XL) 150 MG TABLET.XL PO (06:32)
[2021-11-21 06:36] VITALS: BP 149/69; PULSE 76
[2021-11-21] MEDS: Metoprolol(XL)Succ 50 MG Tablet PO ×2 (06:36→17:39)
[2021-11-21] MEDS: Nystatin Powder 15gm Bottle 1 APPLIC TOPICAL ×2 (06:36→17:38)
[2021-11-21 06:40] LABS: Bedside Glucose 194 mg/dL (74-106)
[2021-11-21] MEDS: Budesonide Respules 0.5 MG/2 ML AMPUL.NEB. INHALATION ×2 (07:40→19:55)
[2021-11-21] MEDS: Ipratropium 0.5 MG/2.5 ML SOLUTION INHALATION ×3 (07:40→19:55)
[2021-11-21 07:42] VITALS: PULSE 77; RESP 18; O2SAT 98
[2021-11-21] MEDS: Aspirin E.C. 81 MG Tablet PO (08:12)
[2021-11-21] MEDS: Insulin Lispro 100 UNIT/ML INSULN.PEN 10 UNIT SC ×3 (08:12→17:34)
[2021-11-21 11:35] LABS: Bedside Glucose 191 mg/dL (74-106)
[2021-11-21] MEDS: Collagenase 30gm Tube 1 APPLIC TOPICAL (12:01)
[2021-11-21 13:27] VITALS: PULSE 78; RESP 20
[2021-11-21 14:22] VITALS: BP 140/63; PULSE 72; RESP 14; TEMP 36.5; O2SAT 97
--- NOTE | 2021-11-21 14:53 | WOUNDNOTE ---
wound photo: left foot
--- NOTE | 2021-11-21 14:53 | WOUNDNOTE ---
wound photo: left foot
--- NOTE | 2021-11-21 14:54 | WOUNDNOTE ---
wound photo: left heel
--- NOTE | 2021-11-21 14:55 | WOUNDNOTE ---
wound photo: right heel
--- NOTE | 2021-11-21 16:19 | CASEMGMT ---
Addendum entered by Graciela Trivedi 11/23/21 11:30: PASRR completed and w/c transport scheduled through [facility] 1000 Addendum entered by Graciela Trivedi 11/22/21 15:49: Pt returned to floor. SW presented to pts room and pt was ending a phone conversation. SW asked how pt was doing since ED stay. Pt started off conversation with a story that did not connect to current events, but redirected self to remembering being admitted to the ED and having the Dr suggest TCU for healing of foot. Pt stated she wants to stay in TCU to continue the healing process. SW educated to insurance issuing DC for 11/25 and inquired about where pt would like to DC to for continued healing. Pt asked about [facility] and [facility]. SW stated this worker cannot recommend but [facility] is able to accept pts insurance insurance and AL Waiver. Pt stated she would like to try [facility]. SW agreed to make referral for DC 11/25. Inquired if pt had voiced preference to son. Pt declined and stated she just got off the phone with son and pt will tell son later. Pt thanked GREG. SW spoke with Director and agreed with speak with pt and son together in pts room. SW and Director presented to pts room and offered to call son for all parties to hear DC plan and ask questions. Pt agreed. Son did not answer. SW left voicemail. SW [facility] SW inquired if pt understood she cannot return to [facility] as they are not able to appropriately care for pt. Pt confirmed and stated she did not want to go back there anyway because it was dirty, the people weren't nice and I think that's where I got my foot infection. SW agreed for pt to DC to a place that can care for pt. Pt requested transport. SW to schedule. Pt appreciative. GREG updated [facility] at [facility] [place] 11/25. SW to complete PASRR and schedule w/c transport. Plan: DC 11/25, [facility]. Addendum entered by Graciela Trivedi 11/22/21 14:13: GREG spoke with Dr. Deleon to update. agrees pt needs to go to a SNF and if pt/son not in agreement, pt can DC AMA and son can take her to another hospital, per his request. GREG spoke with Lead GREG and updated on situation. Lead GREG suggested involving TCU Director and call son with Director to attempt to find a mutually agreed upon goal/DC plan for pt. GREG returned son's call to request scheduled call with this worker and TCU Director in about an hour - son agreed. Addendum entered by Graciela Trivedi 11/22/21 12:50: SW was unavailable for about 30 minutes in which time, son called this worker repeatedly 5 times. Son left one voicemail stating if my mom can't go back to her apartment then she wants to transfer to a different hospital. She directly told me that, she directly told me not to sign anything or to place her anywhere. No one is going to do that. She wants a second opinion. She wants me to get a party plan sales director involved if you don't comply. So that's what I'm trying to tell you. I'm tired of not being taken seriously. I'm 37 years old, not some little kid. Not trying to get rude with you guys but this is going a little too far. It's a little too convenient she's sick again the day she wants out. She doesn't trust you guys after the hospice thing, and neither do I. We want a transfer. I'm perfectly capable of driving her there or however she needs to get there to go to a [facility]. That's literally what she told me. In the meantime, a NOMNC was sent from insurance with LCD 11/24. GREG requested Dr mark this worker to discuss son's voicemail. GREG left voicemail with Lead GREG to collaborate. Addendum entered by Graciela Trivedi 11/22/21 11:13: GREG contacted [facility] again, spoke with new site administrator Laura, and updated on pt's current status. Skin Fitter stated pt has called their nurse's station several times in the middle of the night very confused, and pt is not appropriate to return. [facility] does not have nurse's after 8 pm. GREG contacted [facility]. [facility] stated pt can still admit and requesting updated clinicals. SW contacted son to update on above information. Son argumentative stating pt has told him she does not want to go a nursing facility and wants to go home. SW reiterated pt is not appropriate for AL right now, and the goal is for pt to go to SNF then transition to AL. Reiterated SW had several conversations with pt about discharge plans prior to pt's confusion and pt was clear about wishes. SW offered to refer to other SNFs, but [facility] is the only other [facility] that accepts pt's [facility] Waiver. Son became distracted with work issues and requested to contact this worker during his break. SW agreed. Will await return phone call to finalize DC plans. Original Note: Social Work Received call from son, Aydin, stating pt is requesting to return home. Son speaking in defense and wanting to protect pt from any further decline. SW provided supportive listening and assured son SW to speak with pt and plan for a safe discharge. Son asked if he could take her home right now because he lives 4 minutes away. Educated to discharge planning process and SW will speak with pt and coordinate safe plans along with pts wishes. Son requested to be updated on plans. SW assured son that will happen. SW left message with [facility] to send updated clinicals as [facility] are in agreement pt is too medically complex to return to [facility] and [facility] remains most appropriate. SW to follow up with pt. Graciela Trivedi, JULIANNE PALMERW
[2021-11-21 17:06] LABS: Bedside Glucose 155 mg/dL (74-106)
[2021-11-21] MEDS: Juven (unflavored) Packet 1 PACKET PO (17:37)
[2021-11-21 17:39] VITALS: BP 140/63; PULSE 72
[2021-11-21] MEDS: 0.9% Saline Lock 10 ML Syringe IV ×2 (17:47→22:32)
[2021-11-21 19:59] VITALS: PULSE 72; RESP 18; O2SAT 99
[2021-11-21 21:41] LABS: Bedside Glucose 178 mg/dL (74-106)
[2021-11-21] MEDS: LORazepam 1 MG Tablet PO (22:22)
[2021-11-21] MEDS: Atorvastatin Calcium 40 MG Tablet PO (22:22)
[2021-11-21] MEDS: Paroxetine 20 MG Tablet 40 MG PO (22:23)
[2021-11-21] MEDS: Insulin Glargine-YFGN 100 UNIT/ML Pen 30 UNIT SC (22:26)
[2021-11-22] MEDS: Collagenase 30gm Tube 1 APPLIC TOPICAL (04:09)
[2021-11-22 06:40] LABS: Bedside Glucose 154 mg/dL (74-106)
[2021-11-22] MEDS: Menthol/Lanolin/Calamine/Znox 113 GM Tube 1 APPLIC TOPICAL ×2 (06:53→17:49)
[2021-11-22] MEDS: Nystatin Powder 15gm Bottle 1 APPLIC TOPICAL ×2 (06:54→17:50)
[2021-11-22] MEDS: Pantoprazole Sodium 40 MG Tablet PO ×2 (06:54→17:49)
[2021-11-22] MEDS: Levothyroxine 88 MCG Tablet PO (06:54)
[2021-11-22] MEDS: Furosemide 80 MG Tablet PO (06:54)
[2021-11-22] MEDS: BACITRACIN 15 GM Tube 1 APPLIC TOPICAL ×3 (06:55→20:34)
[2021-11-22] MEDS: buPROPion (XL) 150 MG TABLET.XL PO (06:55)
[2021-11-22 07:00] VITALS: BP 144/58; PULSE 81
[2021-11-22] MEDS: Metoprolol(XL)Succ 50 MG Tablet PO ×2 (07:00→17:51)
[2021-11-22 07:08] VITALS: PULSE 74; RESP 18; O2SAT 99
[2021-11-22] MEDS: Budesonide Respules 0.5 MG/2 ML AMPUL.NEB. INHALATION ×2 (07:08→20:00)
[2021-11-22] MEDS: Ipratropium 0.5 MG/2.5 ML SOLUTION INHALATION ×2 (07:08→20:00)
[2021-11-22] MEDS: Insulin Lispro 100 UNIT/ML INSULN.PEN 10 UNIT SC ×2 (08:06→17:50)
[2021-11-22] MEDS: Aspirin E.C. 81 MG Tablet PO (08:06)
--- NOTE | 2021-11-22 10:15 | NURSING ---
Pt Found up in room ambulating without walker. Pt C/O of Chest pain that is radiating to stomach and right arm pain 11/05. BP 139/57 Sp02 97% [address] Deleon updated N.O. to send pt to ER. Pt sent to ER Son Chava updated. Chava stated he would like the paper work started for Discharge because his mom wants to go home today. Will updated Social Work.
--- NOTE | 2021-11-22 13:04 | NURSING ---
Pt returned from ER no new orders at this time.
--- NOTE | 2021-11-22 13:08 | NURSING ---
Pt returned from E.R. sitting in chair at this time. Pt stated I'm not ready to be on my own. I am unable to take care of myself and change my foot dressing. Will continue to monitor pt.
[2021-11-22 14:22] VITALS: BP 115/84; PULSE 74; RESP 16; TEMP 36.4; O2SAT 100
[2021-11-22 17:40] LABS: Bedside Glucose 216 mg/dL (74-106)
[2021-11-22] MEDS: Juven (unflavored) Packet 1 PACKET PO (17:49)
[2021-11-22 17:51] VITALS: BP 137/48; PULSE 74
--- NOTE | 2021-11-22 19:04 | PCM.DC.SUM ---
Providers Date of Admission: 11/08/21 Primary Care Physician: Dr. Froy Gonzales MD Consultations 11/09/21 07:50 Consult: Hospice / Palliative Care Routine Consulting Provider: [facility] Reason for Consult: Palliative consult. EMERGENT Consult: No Notified: Yes Date Notified: 11/09/21 Time Notified: 07:50 Method of Notification: phone call 11/09/21 15:11 Consult: Onc/Wound/medical massage therapist Routine Comment: Reason for Consult:: bilateral feet 11/14/21 07:55 Consult: Infectious Disease Routine Consulting Provider: Alejandro Mosher Reason for Consult: VRE in urine. EMERGENT Consult: No Notified: Yes Date Notified: 11/14/21 Time Notified: 07:55 Method of Notification: Verbal Reason For Visit: ACUTE HYPOXIC RESP. FAILURE Diagnosis Discharge Diagnosis (1) Anxiety: Status: Acute Code(s): F41.9 - Anxiety disorder, unspecified (2) Diabetic polyneuropathy: Status: Acute Code(s): E11.42 - Type 2 diabetes mellitus with diabetic polyneuropathy (3) History of amputation of hallux: Status: Acute Code(s): Z89.419 - Acquired absence of unspecified great toe (4) Decubitus ulcer of left heel, stage 2: Status: Acute Code(s): L89.622 - Pressure ulcer of left heel, stage 2 (5) Acute respiratory failure with hypoxia: Status: Acute Code(s): J96.01 - Acute respiratory failure with hypoxia (6) Acute on chronic diastolic congestive heart failure: Status: Chronic Code(s): I50.33 - Acute on chronic diastolic (congestive) heart failure (7) Debility: Status: Acute Code(s): R53.81 - Other malaise Plan 66 year old female with below past medical history hospitalized for acute respiratory failure with hypoxia secondary to hospital acquired pneumonia, complicated by acute on chronic diastolic congestive heart failure, SVT, acute kidney injury, admitted to TCU with debility, here for rehabilitation, strengthening, prior to discharge to [facility]. Debility - PT/OT. Pain - Tylenol 1000mg q6h prn pain (1-3), Oxycodone 5mg q4h prn pain (4-10). Bowel - Senokot 1 tablet bid, Dulcolax 10mg daily pr. Adult immunization - Administer pneumonia vaccine, covid19 vaccine, flu vaccine as appropriate. DVT prophylaxis - Hold, anemia. CV prophylaxis - Aspirin 81mg daily. Hyperlipidemia - Atorvastatin 80mg qhs. 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 Hospital acquired pneumonia - Cefdinir 300mg q12 thru 11/13/2021, Prednisone 40mg daily thru 11/19/2021. Wound - Santyl topical daily. SVT - Metoprolol succinate 50mg bid, Diltiazem 120mg daily. Allergic Rhinitis - Singulair 10mg daily, Flonase 1 spray nasal daily, Atrovent 0.5mg q4h prn. Chronic diastolic congestive heart failure - Metoprolol succinate 50mg bid, Furosemide 80mg daily. Diabetic neuropathy - Gabapentin 100mg tid. Diabetes Mellitus II - Glargine 30 units qhs, Humalog 7 units qachs. Insomnia - Trazodone 50mg qhs, Lorazepam 0.5mg qhs prn. Nutrition - Sya 1 packet bid. Hypothyroidism - Levothyroxine 88mcg daily. Tinea Corporis - Nystatin powder topical bid. GERD - Pantoprazole 40mg bid. Hypokalemia - KCL 20meq bid. Medications at Discharge Home Medications furosemide 80 mg tablet 80 mg PO DAILY water pill 09/02/20 levothyroxine 88 mcg tablet 88 mcg PO DAILY thyroid 09/02/20 aspirin 81 mg tablet,delayed release (Adult Aspirin Regimen) 81 mg PO DAILY heart 05/17/21 insulin detemir U-100 100 unit/mL (3 mL) subcutaneous pen 30 unit subcut QHS blood sugar 09/02/21 paroxetine HCl 30 mg tablet 40 mg PO QHS mental health 09/02/21 pantoprazole 40 mg tablet,delayed release 40 mg PO BID GERD 10/22/21 arginine 7 gram-glutamine 7 gram-calcium HMB 1.5 gram oral powder pack (Say) 1 ea PO BID wound healing 11/03/21 bisacodyl 10 mg rectal suppository 10 mg ND DAILY PRN Constipation 11/03/21 collagenase clostridium histo. 250 unit/gram topical ointment (Santyl) 1 applic topical DAILY wound 11/03/21 menthol 0.44 %-zinc oxide 20.6 % topical ointment (Calmoseptine) 1 applic topical BID buttocks 11/03/21 nystatin 100,000 unit/gram topical powder 1 applic topical BID skin irritation 11/03/21 metoprolol succinate 50 mg tablet,extended release 24 hr 50 mg PO BID BP 11/08/21 acetaminophen 500 mg tablet 1,000 mg PO Q6H PRN PRN Pain Score 1-3 #0 tabs 11/22/21 atorvastatin 40 mg tablet 40 mg PO QHS #0 tabs 11/22/21 budesonide 0.5 mg/2 mL suspension for nebulization 0.5 mg (2 mL) inhalation BID.RT #0 mL 11/22/21 bupropion HCl 150 mg 24 hr tablet, extended release 150 mg PO DAILY #0 tabs 11/22/21 insulin lispro 100 unit/mL subcutaneous pen (Humalog KwikPen (U-100) Insulin) 10 unit (0.1 mL) subcut TIDAC #0 mL 11/22/21 ipratropium bromide 0.02 % solution for inhalation 0.5 mg (2.5 mL) inhalation Q6HWA.RT #0 mL 11/22/21 lorazepam 1 mg tablet 1 mg PO QHS 3 days #3 tabs 11/22/21 oxycodone 5 mg tablet 2.5 mg PO Q4H PRN Pain Score 4-10 3 days #9 tabs 11/22/21 sennosides 8.6 mg tablet (Kellie-nazario) 8.6 mg PO BID #0 tabs 11/22/21 Hospital Course Operations None Procedures None Summary of Care Provided Minutes Spent on Discharge: 35 Hospital Course: 66 year old female with below past medical history significant for left hallux amputation 10/21/2021, hospitalized for acute respiratory failure with hypoxia secondary to hospital acquired pneumonia, complicated by acute on chronic diastolic congestive heart failure, SVT, acute kidney injury, admitted to TCU with debility, here for rehabilitation, strengthening, prior to discharge to [facility]. 11/11/2021 Urine culture grew 25,000 to 50,[address] Mosher consulted, recommend no treatment, not infection. Discharge to [facility] 11/25/2021, Skilled. Physical Exam Const alert General Appearance: cooperative HEENT normocephalic Eyes PERRL and EOMs intact bilaterally Neck supple, no JVD and no carotid bruits Resp normal respiratory effort, normal air movement and clear to auscultation bilaterally Cardio regular rate and regular rhythm GI normal to inspection, nondistended, normoactive bowel sounds, non-tender and non-distended Extremity normal capillary refill Extremity Narrative: Status post left hallux amputation. General Extremity: Negative for edema Skin no rashes or lesions noted General Skin Exam: no breakdown Psych affect normal Appearance: appropriate Medical Records Data Medical Nutrition Assessment Dietitian: Malnutrition Criteria Met Start: 11/17/21 15:11 Freq: Status: Active Protocol: Document 11/17/21 15:12 AG (Rec: 11/17/21 15:13 [id number]) Nutrition Malnutrition Evidence of Malnutrition Exists Yes Malnutrition (severe): Acute Illness/Injury Evidenced By Suboptimal Energy Intake ( Severe),Weight Loss (Severe) Clinical Problem Acute Disease or Injury Related Malnutrition Etiology severe, acute malnutrition related to inadequate energy intake Signs/Symptoms as evidenced by unintentional wt loss of 6.6kg/6% x 1 week, estimated PO intake meeting ~ 50-75% of estimated energy needs x 1 week Status Active Problem Altered Nutrient-Related Laboratory Values Etiology related to DM Signs/Symptoms as evidenced by fasting glucose 211 Status Active Problem Recommendation Dietitian Recommendations/Changes Will change diet to 1800 calorie controlled, no added salt Will continue Say BID; will monitor need for additional ONS if PO intake does not improve at meals and/or wt loss continues. Weight / BMI Weight Weight: 96.298 kg Body Mass Index (BMI) 39.4 ABG / Lab / Microbiology Data Result Diagrams: 11/16/21 05:32 11/16/21 05:32 Laboratory: Laboratory Results - last 24 hr 11/21/21 21:17: POC Glucose 178 H 11/22/21 06:20: POC Glucose 154 H 11/22/21 17:23: POC Glucose 216 H Microbiology: Microbiology 11/15/21 16:05 Nasal Secretion SARS-CoV-2 Antigen (Rapid) - Final 11/11/21 16:17 Urine, Catheterized Urine Culture - Final Vancomycin Resist. E. faecium 11/11/21 15:40 Mucosa - Nasopharyngeal Respiratory Panel (PCR) - Final 11/11/21 15:00 Nasal Secretion SARS-CoV-2 Antigen (Rapid) - Final D/C Instructions Discharge Diet: No restrictions Discharge Activity: Return to Normal Activity, May Shower and Use Walker Weight Bearing Status: Partial weight bearing (Left lower extremity.) Call your doctor if you observe: Fever of 101 or Higher, Inability to urinate, Inability to have a bowel movement, Shortness of breath, Dizziness, Fainting spells, Swelling in the ankles, Chest pain and Uncontrolled pain Additional Instructions: Discharge to [facility] 11/25/2021, Skilled. Please Follow Up With: Noah No DPM When: As scheduled. Meaningful Use Info Meaningful Use Diagnoses (Choose all that apply): None applicable Discharge Plan Admission Admit Date/Time: 11/08/21 15:11 Primary Reason for Your Visit: Debility. Attending Provider: Umer Deleon Chi Primary Care Provider: Froy Gonzales Consulting Providers: Arianna Lyle ; Augie Leger ; Ana Smallwood ; July Anton ; Ade Diaz NURSES DIRECTOR ; Alejandro Mosher Instructions Additional Instructions / Restrictions: Discharge to [facility] 11/25/2021, non-skilled. Discharge Orders/Prescriptions Prescriptions: New atorvastatin 40 mg Tablet 40 mg PO QHS Qty: 0 0RF sennosides [Kellie-nazario] 8.6 mg Tablet 8.6 mg PO BID Qty: 0 0RF acetaminophen 500 mg Tablet 1,000 mg PO Q6H PRN PRN (Reason: Pain Score 1-3) Qty: 0 0RF oxycodone 5 mg Tablet 2.5 mg PO Q4H PRN (Reason: Pain Score 4-10) 3 Days Qty: 9 0RF bupropion HCl 150 mg Tablet Extended Release 24 Hr 150 mg PO DAILY Qty: 0 0RF budesonide 0.5 mg/2 mL Suspension For Nebulization 0.5 mg inhalation BID.RT Qty: 0 0RF lorazepam 1 mg Tablet 1 mg PO QHS 3 Days Qty: 3 0RF ipratropium bromide 0.02 % Solution 0.5 mg inhalation Q6HWA.RT Qty: 0 0RF insulin lispro [Humalog KwikPen Insulin] 100 unit/mL Insulin Pen 10 unit subcut TIDAC Qty: 0 0RF Continued aspirin [Adult Aspirin Regimen] 81 mg tablet,delayed release (DR/EC) 81 mg PO DAILY levothyroxine 88 mcg Tablet 88 mcg PO DAILY furosemide 80 mg Tablet 80 mg PO DAILY Hold Instructions: Resume on 11/10/21. Rx Instructions: resume on 11/10 paroxetine HCl 30 mg tablet 40 mg PO QHS insulin detemir U-100 100 unit/mL (3 mL) insulin pen 30 unit SUBCUT QHS pantoprazole 40 mg tablet,delayed release (DR/EC) 40 mg PO BID menthol-zinc oxide [Calmoseptine] 0.44-20.6 % Ointment 1 applic TOPICAL BID bisacodyl 10 mg Suppository 10 mg ND DAILY PRN (Reason: Constipation) nystatin 100,000 unit/gram Powder 1 applic TOPICAL BID Santyl 250 unit/gram Ointment 1 applic TOPICAL DAILY Say 7-7-1.5 gram Powder In Packet 1 ea PO BID metoprolol succinate 50 mg tablet extended release 24 hr 50 mg PO BID Discontinued trazodone 100 mg Tablet 50 mg PO QHS montelukast 10 mg Tablet 10 mg PO DAILY lorazepam 1 mg Tablet 0.5 mg PO QHS fluticasone propionate 50 mcg/actuation [place],Suspension 1 spray INTRANASAL DAILY PRN (Reason: Allergies) bupropion HCl 300 mg Tablet Extended Release 24 Hr 150 mg PO QHS fluticasone furoate-vilanterol [Breo Ellipta] 100-25 mcg/dose Blister With Device 1 inh INHALATION BID ipratropium-albuterol 0.5 mg-3 mg(2.5 mg base)/3 mL solution for nebulization 3 ml INHALATION BID PRN (Reason: sob) insulin lispro 100 unit/mL insulin pen 7 unit SUBCUT ACHS Protocol: 6. Sliding Scale Insulin Custom Condition: 151-175 Dose/Route: 5 Condition: 176-200 Dose/Route: 7 Condition: 201-250 Dose/Route: 9 Condition: 251-300 Dose/Route: 11 Condition: 301-350 Dose/Route: 13 Condition: 351-400 Dose/Route: 15 Condition: 401-450 Dose/Route: 19 Protocol Text: Custom Sliding Scale gabapentin [Neurontin] 100 mg Capsule 100 mg PO TID atorvastatin 80 mg tablet 80 mg PO QHS sennosides [senna] 8.6 mg Tablet 17.2 mg PO BID acetaminophen 500 mg Tablet 1,000 mg PO Q8H PRN (Reason: Pain) oxycodone 5 mg Tablet 5 mg PO Q4H PRN (Reason: Pain) potassium chloride 20 mEq Tablet Extended Release 20 meq PO BID prednisone 20 mg tablet 40 mg PO BREAKFAST Rx Instructions: 40 mg for 3 days, 30 mg for 3 days, 20 mg for 3 days, 10 mg for 3 days diltiazem HCl 120 mg capsule,extended release 24hr 120 mg PO DAILY cefdinir 300 mg capsule 300 mg PO Q12 Referrals / Follow Up: Froy Gonzales MD [Primary Care Provider] - Disposition Disposition (needs filled in before D/C Order can be placed): NonSkilled NH/Intermed Care
--- NOTE | 2021-11-22 19:17 | TREXTCAR_ITS ---
Diet Diet Order/Speech Therapy: 11/17/21 15:11 Diet: Consistent Carb - Calorie Controlled Food consistency:: Regular Liquid Consistency:: Regular/Thin Dietary Modifications:: No Added Salt Is pt able to select menu?: Yes How many daily calories?: 1800 calorie Routine Orders/Code Status Code Status: DNRCC-A (No intubation.) Wound(s) left great toe: Wound Type: dehisced surgical incision Dressing Change: AntiMicrobial (Aquacel AG, etc) left heel: Wound Type: Pressure Injury Dressing Change: santyl with dry dressing Right heel: Wound Type: Pressure Injury Dressing Change: Mepilex left medial foot (near amputation site): Wound Type: Pressure Injury Dressing Change: dry dressing left heel (just superior/lateral to other pressure injury): Wound Type: Pressure Injury Dressing Change: well padded dry dressing posterior r heel: Wound Type: fluid filled blister Dressing Change: mepilex 9-26 Therapies Weight Bearing: Partial weight bearing Extremity Affected:: Left Lower Physical Therapy: Eval and Treat Occupational Therapy: Eval and Treat Speech Therapy: Eval and Treat Problem/Diagnosis (1) Anxiety: Status: Acute Code(s): F41.9 - Anxiety disorder, unspecified (2) Diabetic polyneuropathy: Status: Acute Code(s): E11.42 - Type 2 diabetes mellitus with diabetic polyneuropathy (3) History of amputation of hallux: Status: Acute Code(s): Z89.419 - Acquired absence of unspecified great toe Comment: Left Hallux Amputation performed by Dr. No, DPM (4) Decubitus ulcer of left heel, stage 2: Status: Acute Code(s): L89.622 - Pressure ulcer of left heel, stage 2 (5) Acute respiratory failure with hypoxia: Status: Acute Code(s): J96.01 - Acute respiratory failure with hypoxia (6) Acute on chronic diastolic congestive heart failure: Status: Chronic Code(s): I50.33 - Acute on chronic diastolic (congestive) heart failure (7) Debility: Status: Acute Code(s): R53.81 - Other malaise Plan 66 year old female with below past medical history hospitalized for acute respiratory failure with hypoxia secondary to hospital acquired pneumonia, complicated by acute on chronic diastolic congestive heart failure, SVT, acute kidney injury, admitted to TCU with debility, here for rehabilitation, strengthening, prior to discharge to [facility]. * Debility - PT/OT. * Pain - Tylenol 1000mg q6h prn pain (1-3), Oxycodone 5mg q4h prn pain (4-10). * Bowel - Senokot 1 tablet bid, Dulcolax 10mg daily pr. * Adult immunization - Administer pneumonia vaccine, covid19 vaccine, flu vaccine as appropriate. * DVT prophylaxis - Hold, anemia. * CV prophylaxis - Aspirin 81mg daily. * Hyperlipidemia - Atorvastatin 80mg qhs. 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 * Hospital acquired pneumonia - Cefdinir 300mg q12 thru 11/13/2021, Prednisone 40mg daily thru 11/19/2021. * Wound - Santyl topical daily. * SVT - Metoprolol succinate 50mg bid, Diltiazem 120mg daily. * Allergic Rhinitis - Singulair 10mg daily, Flonase 1 spray nasal daily, Atrovent 0.5mg q4h prn. * Chronic diastolic congestive heart failure - Metoprolol succinate 50mg bid, Furosemide 80mg daily. * Diabetic neuropathy - Gabapentin 100mg tid. * Diabetes Mellitus II - Glargine 30 units qhs, Humalog 7 units qachs. * Insomnia - Trazodone 50mg qhs, Lorazepam 0.5mg qhs prn. * Nutrition - Say 1 packet bid. * Hypothyroidism - Levothyroxine 88mcg daily. * Tinea Corporis - Nystatin powder topical bid. * GERD - Pantoprazole 40mg bid. * Hypokalemia - KCL 20meq bid. Allergies/Procedures Done in Hospital Allergies Sulfa (Sulfonamide Antibiotics) Allergy (Verified 11/22/21 10:13) Anaphylaxis sulfur dioxide Allergy (Verified 11/22/21 10:13) Anaphylaxis Procedures: None Type of Care/Length of Stay Estimated LOS: More Than 30 Days Type of Care Needed: Intermediate Rehab Potential: Fair Prognosis: Fair Additional Orders/Day of Discharge Day of Discharge: 11/25/21 Dietary and Speech Recommendations Dietitian Recommendations/Changes: Will change diet to 1800 calorie controlled, no added salt Will continue Say BID; will monitor need for additional ONS if PO intake does not improve at meals and/or wt loss continues. Follow Up Care Please Follow Up With: Noah No DPM Discharge Plan Admission Admit Date/Time: 11/08/21 15:11 Primary Reason for Your Visit: Debility. Attending Provider: Umer Deleon Chi Primary Care Provider: Froy Gonzales Consulting Providers: Arianna Lyle ; Augie Leger ; Ana Smallwood ; July Anton ; Ade Diaz NP ; Alejandro Mosher Instructions Additional Instructions / Restrictions: Discharge to [facility] 11/25/2021, non-skilled. Discharge Orders/Prescriptions Prescriptions: New atorvastatin 40 mg Tablet 40 mg PO QHS Qty: 0 0RF sennosides [Kellie-nazario] 8.6 mg Tablet 8.6 mg PO BID Qty: 0 0RF acetaminophen 500 mg Tablet 1,000 mg PO Q6H PRN PRN (Reason: Pain Score 1-3) Qty: 0 0RF oxycodone 5 mg Tablet 2.5 mg PO Q4H PRN (Reason: Pain Score 4-10) 3 Days Qty: 9 0RF bupropion HCl 150 mg Tablet Extended Release 24 Hr 150 mg PO DAILY Qty: 0 0RF budesonide 0.5 mg/2 mL Suspension For Nebulization 0.5 mg inhalation BID.RT Qty: 0 0RF lorazepam 1 mg Tablet 1 mg PO QHS 3 Days Qty: 3 0RF ipratropium bromide 0.02 % Solution 0.5 mg inhalation Q6HWA.RT Qty: 0 0RF insulin lispro [Humalog KwikPen Insulin] 100 unit/mL Insulin Pen 10 unit subcut TIDAC Qty: 0 0RF Continued aspirin [Adult Aspirin Regimen] 81 mg tablet,delayed release (DR/EC) 81 mg PO DAILY levothyroxine 88 mcg Tablet 88 mcg PO DAILY furosemide 80 mg Tablet 80 mg PO DAILY Hold Instructions: Resume on 11/10/21. Rx Instructions: resume on 11/10 paroxetine HCl 30 mg tablet 40 mg PO QHS insulin detemir U-100 100 unit/mL (3 mL) insulin pen 30 unit SUBCUT QHS pantoprazole 40 mg tablet,delayed release (DR/EC) 40 mg PO BID menthol-zinc oxide [Calmoseptine] 0.44-20.6 % Ointment 1 applic TOPICAL BID bisacodyl 10 mg Suppository 10 mg ND DAILY PRN (Reason: Constipation) nystatin 100,000 unit/gram Powder 1 applic TOPICAL BID Santyl 250 unit/gram Ointment 1 applic TOPICAL DAILY Say 7-7-1.5 gram Powder In Packet 1 ea PO BID metoprolol succinate 50 mg tablet extended release 24 hr 50 mg PO BID Discontinued trazodone 100 mg Tablet 50 mg PO QHS montelukast 10 mg Tablet 10 mg PO DAILY lorazepam 1 mg Tablet 0.5 mg PO QHS fluticasone propionate 50 mcg/actuation [place],Suspension 1 spray INTRANASAL DAILY PRN (Reason: Allergies) bupropion HCl 300 mg Tablet Extended Release 24 Hr 150 mg PO QHS fluticasone furoate-vilanterol [Breo Ellipta] 100-25 mcg/dose Blister With Device 1 inh INHALATION BID ipratropium-albuterol 0.5 mg-3 mg(2.5 mg base)/3 mL solution for nebulization 3 ml INHALATION BID PRN (Reason: sob) insulin lispro 100 unit/mL insulin pen 7 unit SUBCUT ACHS Protocol: 6. Sliding Scale Insulin Custom Condition: 151-175 Dose/Route: 5 Condition: 176-200 Dose/Route: 7 Condition: 201-250 Dose/Route: 9 Condition: 251-300 Dose/Route: 11 Condition: 301-350 Dose/Route: 13 Condition: 351-400 Dose/Route: 15 Condition: 401-450 Dose/Route: 19 Protocol Text: Custom Sliding Scale gabapentin [Neurontin] 100 mg Capsule 100 mg PO TID atorvastatin 80 mg tablet 80 mg PO QHS sennosides [senna] 8.6 mg Tablet 17.2 mg PO BID acetaminophen 500 mg Tablet 1,000 mg PO Q8H PRN (Reason: Pain) oxycodone 5 mg Tablet 5 mg PO Q4H PRN (Reason: Pain) potassium chloride 20 mEq Tablet Extended Release 20 meq PO BID prednisone 20 mg tablet 40 mg PO BREAKFAST Rx Instructions: 40 mg for 3 days, 30 mg for 3 days, 20 mg for 3 days, 10 mg for 3 days diltiazem HCl 120 mg capsule,extended release 24hr 120 mg PO DAILY cefdinir 300 mg capsule 300 mg PO Q12 Referrals / Follow Up: Gonzales,Froy, MD [Primary Care Provider] - Disposition Disposition (needs filled in before D/C Order can be placed): NonSkilled N H/Intermed Care
[2021-11-22 20:04] VITALS: PULSE 76; RESP 18; O2SAT 98
[2021-11-22] MEDS: Acetaminophen 500 MG Tablet 1000 MG PO (20:34)
[2021-11-22] MEDS: Paroxetine 20 MG Tablet 40 MG PO (20:36)
[2021-11-22] MEDS: Atorvastatin Calcium 40 MG Tablet PO (20:36)
[2021-11-22] MEDS: LORazepam 1 MG Tablet PO (20:38)
[2021-11-22 21:31] LABS: Bedside Glucose 93 mg/dL (74-106)
[2021-11-22 22:51] LABS: Bedside Glucose 153 mg/dL (74-106)
[2021-11-22] MEDS: Insulin Glargine-YFGN 100 UNIT/ML Pen 30 UNIT SC (22:56)
[2021-11-22 23:11] VITALS: PULSE 72; RESP 16; O2SAT 94
[2021-11-23] MEDS: BACITRACIN 15 GM Tube 1 APPLIC TOPICAL ×4 (05:24→21:01)
[2021-11-23 05:25] VITALS: BP 154/61; PULSE 70
[2021-11-23] MEDS: Menthol/Lanolin/Calamine/Znox 113 GM Tube 1 APPLIC TOPICAL ×2 (05:25→17:56)
[2021-11-23] MEDS: Metoprolol(XL)Succ 50 MG Tablet PO ×2 (05:25→17:54)
[2021-11-23] MEDS: Juven (unflavored) Packet 1 PACKET PO ×2 (05:25→17:55)
[2021-11-23] MEDS: buPROPion (XL) 150 MG TABLET.XL PO (05:25)
[2021-11-23] MEDS: Pantoprazole Sodium 40 MG Tablet PO ×2 (05:28→17:55)
[2021-11-23] MEDS: Levothyroxine 88 MCG Tablet PO (05:28)
[2021-11-23] MEDS: Senna Tablet 1 TABLET PO ×2 (05:28→17:55)
[2021-11-23] MEDS: Furosemide 80 MG Tablet PO (05:29)
[2021-11-23] MEDS: Nystatin Powder 15gm Bottle 1 APPLIC TOPICAL ×2 (05:30→17:56)
[2021-11-23 05:37] LABS: Absolute Lymphocyte Count 1.17 X10^3/uL (0.83-4.51); Absolute Neutrophil Count 5.2 X10^3/uL (2.0-7.7); Basophil# 0.04 X10^3/uL; Basophil% 0.6 % (0-1); Eosinophil# 0.11 X10^3/uL; Eosinophils% 1.6 % (0-5); Hematocrit 28.3 % (37-47); Hemoglobin 8.8 g/dL (12.0-15.0); Lymphocyte # 1.17 X10^3/ul (0.83-4.51); Lymphocyte % 16.5 % (19-41); Mean Corp Hgb Conc 31.1 g/dL (32-36); Mean Corpuscular Hgb 28.1 pg (27.0-32.0); Mean Corpuscular Volume 90.4 fL (81-99); Mean Platelet Vol. 10.8 fl (6.2-12.0); Monocyte# 0.53 X10^3/uL; Monocyte% 7.5 % (0-10); NRBC Flagged by Analyzer 0 % (0-5); Neutrophil # 5.21 X10^3/uL (2.7-7.7); Neutrophil % 73.5 % (47-70); Platelet Count 149 K/mm3 (150-450); RBC Distribution Width CV 17.2 % (11.6-14.6); RBC Distribution Width SD 56.4 fl (35.1-43.9); Red Blood Count 3.13 M/mm3 (4.2-5.4); White Blood Count 7.1 K/mm3 (4.4-11.0)
[2021-11-23 06:09] LABS: Anion Gap 7 (5-15); BUN 18 mg/dL (7-18); BUN/Creat Ratio 19.3 RATIO (10-20); Calcium,Total 8.8 mg/dL (8.5-10.1); Chloride 103 mmol/L (98-107); Creatinine, Serum 0.93 mg/dL (0.55-1.02); EST Glomerular Filtration Rate 64 mL/min (>60); Est Glom Filt Rate - Afr Amer 77 mL/min (>60); Estimated Creatinine Clearance 54.27 ml/min; Glucose 152 mg/dL (74-106); Sodium Level 142 mmol/L (136-145)
[2021-11-23 06:36] LABS: Bedside Glucose 149 mg/dL (74-106)
[2021-11-23 07:00] VITALS: PULSE 78; RESP 20; O2SAT 96
[2021-11-23] MEDS: Ipratropium 0.5 MG/2.5 ML SOLUTION INHALATION ×2 (07:10→19:12)
[2021-11-23] MEDS: Budesonide Respules 0.5 MG/2 ML AMPUL.NEB. INHALATION ×2 (07:10→19:12)
[2021-11-23] MEDS: Insulin Lispro 100 UNIT/ML INSULN.PEN 10 UNIT SC ×3 (08:15→17:57)
[2021-11-23] MEDS: Aspirin E.C. 81 MG Tablet PO (08:15)
[2021-11-23 11:05] LABS: Bedside Glucose 168 mg/dL (74-106)
--- NOTE | 2021-11-23 12:48 | NURSING ---
Picc Line discontinued per order. Tip intact and pt tolerated well.
[2021-11-23 15:20] VITALS: BP 129/57; PULSE 75; RESP 19; TEMP 36.1; O2SAT 98
[2021-11-23 16:11] LABS: Bedside Glucose 182 mg/dL (74-106)
[2021-11-23 17:54] VITALS: BP 145/72; PULSE 70
[2021-11-23] MEDS: Nitrofurantoin Macrocrystals 100 MG Capsule PO (17:54)
[2021-11-23] MEDS: Potassium Chloride Oral Tablet 20 MEQ 40 MEQ PO (17:55)
[2021-11-23 19:12] VITALS: PULSE 74; RESP 16
[2021-11-23] MEDS: LORazepam 1 MG Tablet PO (21:00)
[2021-11-23] MEDS: Atorvastatin Calcium 40 MG Tablet PO (21:02)
[2021-11-23] MEDS: Paroxetine 20 MG Tablet 40 MG PO (21:03)
[2021-11-23] MEDS: Insulin Glargine-YFGN 100 UNIT/ML Pen 30 UNIT SC (21:12)
[2021-11-23 21:36] LABS: Bedside Glucose 118 mg/dL (74-106)
[2021-11-23 22:00] VITALS: PULSE 68; O2SAT 98
[2021-11-24] MEDS: Acetaminophen 500 MG Tablet 1000 MG PO (01:23)
[2021-11-24] MEDS: oxyCODONE 5 MG Tablet 2.5 MG PO (03:45)
[2021-11-24 06:30] LABS: Bedside Glucose 118 mg/dL (74-106)
[2021-11-24] MEDS: BACITRACIN 15 GM Tube 1 APPLIC TOPICAL ×2 (06:30→12:11)
[2021-11-24] MEDS: Nystatin Powder 15gm Bottle 1 APPLIC TOPICAL (06:30)
[2021-11-24] MEDS: Menthol/Lanolin/Calamine/Znox 113 GM Tube 1 APPLIC TOPICAL (06:30)
[2021-11-24] MEDS: Levothyroxine 88 MCG Tablet PO (06:31)
[2021-11-24] MEDS: buPROPion (XL) 150 MG TABLET.XL PO (06:31)
[2021-11-24] MEDS: Furosemide 80 MG Tablet PO (06:31)
[2021-11-24] MEDS: Nitrofurantoin Macrocrystals 100 MG Capsule PO (06:31)
[2021-11-24] MEDS: Senna Tablet 1 TABLET PO (06:31)
[2021-11-24] MEDS: Pantoprazole Sodium 40 MG Tablet PO (06:31)
[2021-11-24 06:32] VITALS: BP 148/51; PULSE 68
[2021-11-24] MEDS: Metoprolol(XL)Succ 50 MG Tablet PO (06:32)
[2021-11-24] MEDS: Juven (unflavored) Packet 1 PACKET PO (06:32)
[2021-11-24 06:45] VITALS: PULSE 77; RESP 16; O2SAT 99
[2021-11-24] MEDS: Budesonide Respules 0.5 MG/2 ML AMPUL.NEB. INHALATION ×2 (06:45→13:22)
[2021-11-24] MEDS: Ipratropium 0.5 MG/2.5 ML SOLUTION INHALATION (06:45)
[2021-11-24] MEDS: Aspirin E.C. 81 MG Tablet PO (09:44)
[2021-11-24] MEDS: Potassium Chloride Oral Tablet 20 MEQ PO (09:44)
[2021-11-24] MEDS: Collagenase 30gm Tube 1 APPLIC TOPICAL (09:45)
[2021-11-24 11:06] LABS: Bedside Glucose 211 mg/dL (74-106)
--- NOTE | 2021-11-24 11:48 | MDS.RN ---
Pain interview for SANJEEV 11/25/21.
[2021-11-24] MEDS: Insulin Lispro 100 UNIT/ML INSULN.PEN 10 UNIT SC (12:10)
[2021-11-24 13:23] VITALS: PULSE 74; RESP 16
[2021-11-24 13:26] VITALS: BP 130/49; PULSE 80; RESP 20; TEMP 36.5; O2SAT 96
--- NOTE | 2021-11-24 14:42 | CASEMGMT ---
Social Work Notified by nursing that pt is getting agitated and wanting to leave TCU right away. SW presented to pt room to speak with pt. Listened to pt's requests. Pt is requesting to DC to [facility] today and not stay in TCU another night. SW offered to contact [facility] to see if pt can DC today. Pt agreed. SW contacted Stiven at [facility] - they are able to accept pt today. SW contacted [facility] to change warehouse picker. [facility] transport today at 430pm. SW updated pt and pt agreeable to warehouse picker time. INSPECTION MANAGER offered to wash pt's clothes prior to DC. Pt agreed. Pt stated she doesn't have a lot of clothes and wants more clothes from home. SW offered to contact son for him to bring more clothes. Pt called son on her cell phone while this worker was present. Son did not answer but this worker left a voicemail with request. Pt appears anxious about wanting to leave. SW offered beverage, snack, activity. Pt agreed to diet coke. SW provided. Son presented to pt's room shortly after. Pt wanting son to transport pt. SW spoke with pt and son, encouraged pt to wait until w/c transport as pt needs O2 and unable to safely get in and out of car. Pt argumentative. Son agreed for pt to wait until w/c transport. Son stated he was just visiting [facility] and offered to show pt pictures. SW encouraged for pt to have some preparation and keep busy until transport arrived. Graciela Trivedi, JULIANNE PALMERW
[2021-11-24 15:06] VITALS: RESP 18; O2SAT 96
--- NOTE | 2021-11-24 15:31 | NURSING ---
report called to Arcelia Martin
== END 2021-11-24 16:23 | disposition intermediate care facility (04) | DRG 194 ==
PROVIDERS: Admitting Provider Family Medicine Geriatric Medicine; PCP Family Medicine; Visit Provider Family Medicine Geriatric Medicine
DX: J18.9 Pneumonia, unspecified organism (principal); I47.1 Supraventricular tachycardia; I13.0 Hypertensive heart and chronic kidney disease with heart failure and stage 1 through stage 4 chronic kidney disease, or unspecified chronic kidney disease; N17.9 Acute kidney failure, unspecified; I50.32 Chronic diastolic (congestive) heart failure; J96.11 Chronic respiratory failure with hypoxia; J44.0 Chronic obstructive pulmonary disease with (acute) lower respiratory infection; N39.0 Urinary tract infection, site not specified; Z16.21 Resistance to vancomycin; I27.21 Secondary pulmonary arterial hypertension; B35.4 Tinea corporis; I48.91 Unspecified atrial fibrillation; E11.42 Type 2 diabetes mellitus with diabetic polyneuropathy; Z79.4 Long term (current) use of insulin; E11.22 Type 2 diabetes mellitus with diabetic chronic kidney disease; E11.622 Type 2 diabetes mellitus with other skin ulcer; L89.622 Pressure ulcer of left heel, stage 2; Z89.422 Acquired absence of other left toe(s); E03.9 Hypothyroidism, unspecified; F41.9 Anxiety disorder, unspecified; I25.10 Atherosclerotic heart disease of native coronary artery without angina pectoris; K21.9 Gastro-esophageal reflux disease without esophagitis; E78.5 Hyperlipidemia, unspecified; G47.33 Obstructive sleep apnea (adult) (pediatric); N18.9 Chronic kidney disease, unspecified; I25.2 Old myocardial infarction; F32.A Depression, unspecified; Y95 Nosocomial condition; Z87.891 Personal history of nicotine dependence; Z79.899 Other long term (current) drug therapy; Z79.51 Long term (current) use of inhaled steroids; Z79.890 Hormone replacement therapy; B95.2 Enterococcus as the cause of diseases classified elsewhere
CPT/HCPCS: 36415; 36569; 74018; 80048; 81001; 82962; 85025; 87077; 87086; 87088; 87186; 87426; 87633; 87811; 92523; 94640; 97110; 97116; 97162; 97166; 97530; 97535; 97802; 97803; A4216

== ENCOUNTER → 2021-11-11 | Outpatient (CLI) | payer MEDICARE, MEDICAID, SELFPAY ==
--- NOTE | 2021-11-11 19:00 | MRI_ITS ---
STUDY: MRI BRAIN WITHOUT CONTRAST REASON FOR EXAM: Female, 66 years old. AMS -- Pt refused contrast TECHNIQUE: Standardized multiplanar fat and water weighted pulse sequences were obtained. COMPARISON: CT brain 10/07/2020 FINDINGS: There is mild cerebral atrophy with widening of the extra-axial spaces and ventricular dilatation. There are multiple white matter hyperintensities, distributed throughout the deep white matter tracts of the cerebral hemispheres, consistent with moderate chronic white matter ischemic changes. Cavum vellum. There is no evidence for recent intracranial ischemia or other cause of cytotoxic edema on diffusion weighted imaging (DWI). Normal bilateral basal ganglia. Normal thalami. There is no extra-axial fluid accumulation. Normal flow voids within the major intracranial circulation suggesting patency by spin echo criteria. Normal sella turcica, pituitary gland, infundibular stalk, optic chiasm and hypothalamus. Normal tectal plate and pineal gland. Normal midbrain, levy and medulla. Normal cerebellum. Normal basal cisterns. Normal bilateral temporal bones. Normal bilateral internal auditory canals. No demonstrated orbital abnormality, within the constraints of a routine brain study. Normal visualized paranasal sinuses. Normal calvarium and skull base. Normal visualized soft tissue structures. Normal visualized upper cervical spine. MRI/Brain without Contrast IMPRESSION: Involutional changes of the brain, as described above. Electronically Signed: Avinash Boone MD at 21:32 EDT ,
== END | disposition home or self-care (01) ==
PROVIDERS: PCP Family Medicine; Visit Provider Family Medicine Geriatric Medicine
DX: Z53.29 Procedure and treatment not carried out because of patient's decision for other reasons (principal); R41.82 Altered mental status, unspecified
CPT/HCPCS: 70551

== ENCOUNTER 2021-11-22 10:12 | Emergency (ER) | payer MEDICARE, MEDICAID, SELFPAY ==
[2021-11-22 10:14] VITALS: BP 152/64; PULSE 88; RESP 18; TEMP 36.8; O2SAT 100; BMI 38.0
--- NOTE | 2021-11-22 10:42 | RAD_ITS ---
STUDY: X-RAY CHEST REASON FOR EXAM: Female, 66 years old. Chest pain. TECHNIQUE: AP and lateral views of the chest. COMPARISON: Comparison is made with prior study dated 11/03/2021. FINDINGS: EKG electrodes are seen. There is evidence of a mild degree of CHF. There is no demonstrated pleural abnormality. There is mild cardiac enlargement. Normal mediastinum and sol. Normal visualized pulmonary arteries. Normal visualized aortic arch and descending thoracic aorta. There are diffuse degenerative changes of the visualized thoracic spine. Normal visualized ribs, clavicles, and shoulders. There is no demonstrated abnormality of the visualized soft tissue structures of the upper abdomen. RAD/Chest PA and Lateral IMPRESSION: Mild degree of cardiomegaly and CHF. Electronically Signed: Butch Ling MD at 11:16 EDT ,
--- NOTE | 2021-11-22 10:42 | EKG12_ITS ---
Test Reason : CHEST PAIN Blood Pressure : / mmHG Vent. Rate : 081 BPM Atrial Rate : 081 BPM P-R Int : 158 ms QRS Dur : 082 ms QT Int : 382 ms P-R-T Axes : 072 012 087 degrees QTc Int : 443 ms Sinus rhythm with marked sinus arrhythmia Otherwise normal ECG Confirmed by HENRIETTA ROSS, [place] ([id number]), brands editor JASON PEREIRA ([id number]) on 11/23/2021 9:07:04 AM Referred By: POOJA Confirmed By:MONTANA SHRESTHA MD
[2021-11-22 11:07] LABS: Absolute Neutrophil Count 7.2 X10^3/uL (2.0-7.7); Basophil# 0.03 X10^3/uL; Basophil% 0.3 % (0-1); Eosinophil# 0.06 X10^3/uL; Eosinophils% 0.7 % (0-5); Hematocrit 28.6 % (37-47); Hemoglobin 8.7 g/dL (12.0-15.0); Lymphocyte % 11.3 % (19-41); Mean Corp Hgb Conc 30.4 g/dL (32-36); Mean Platelet Vol. 10.4 fl (6.2-12.0); Monocyte# 0.52 X10^3/uL; Monocyte% 5.9 % (0-10); NRBC Flagged by Analyzer 0 % (0-5); Neutrophil # 7.23 X10^3/uL (2.7-7.7); Neutrophil % 81.5 % (47-70); Platelet Count 171 K/mm3 (150-450); RBC Distribution Width CV 17.3 % (11.6-14.6); RBC Distribution Width SD 57.1 fl (35.1-43.9); Red Blood Count 3.11 M/mm3 (4.2-5.4); White Blood Count 8.9 K/mm3 (4.4-11.0)
--- NOTE | 2021-11-22 11:10 | EDS_ITS ---
HPI History of Present Illness Chief Complaint: Chest Pain Informant: patient Narrative Narrative: Patient sent down from TCU for evaluation reported chest pains while doing physical therapy. Upon arrival to ED patient reports to me and nursing that she lied about her complaints. Unclear the reasoning. She has history of paroxysmal atrial fibrillation on Eliquis. She had recent left great toe amputation leading to hospitalization TCU. This was performed proxy month ago per the patient. She is doing well. She is reporting that she said this due to concerns of cleaning lady coming to her home.. She is currently at TCU. She states she is able to lift her mother at the home. She denies cough or any urinary symptoms. Denies recent vomiting or diarrhea but denies fevers. She does have a right PICC line. [facility] Medical History Acute cervical myofascial strain Acute on chronic respiratory failure with hypoxemia Amputated toe of left foot Anemia Asthma Atherosclerotic heart disease of [place] coronary artery without angina pectoris Atrial fibrillation CAD (coronary artery disease) CHF (congestive heart failure) Chronic heart failure with preserved ejection fraction (HFpEF) Chronic heel ulcer Chronic respiratory failure with hypoxia, on home oxygen therapy Chronic ulcer of great toe of left foot Closed head injury Congestive heart failure (CHF) COPD (chronic obstructive pulmonary disease) Decubitus ulcer of dorsum of foot, stage 2 Decubitus ulcer of left heel, stage 2 Decubitus ulcer of left heel, stage 3 Decubitus ulcer, heel, left, unstageable Depression Diabetes mellitus with diabetic polyneuropathy Diabetes type 2, controlled Diabetic foot ulcers Diverticulitis Essential hypertension Former smoker History of amputation of left great toe History of non-ST elevation myocardial infarction (NSTEMI) (02/24/17) Hyperlipidemia Hypothyroid Myocardial infarct Non-rheumatic tricuspid valve insufficiency Nondisplaced fracture of distal phalanx of right great toe, initial encounter for closed fracture Nonrheumatic mitral (valve) insufficiency Obesity Obstructive sleep apnea On home O2 Renal insufficiency Secondary pulmonary arterial hypertension Type 2 diabetes mellitus Home Medications bupropion HCl 300 mg 24 hr tablet, extended release 150 mg PO QHS depression 09/02/20 [History Last Taken 10/13/21] fluticasone furoate 100 mcg-vilanterol 25 mcg/dose inhalation powder (Breo Ellipta) 1 inh inhalation BID breathing 09/02/20 [History Last Taken 10/14/21] fluticasone propionate 50 mcg/actuation nasal spray,suspension 1 spray intranasal DAILY PRN Allergies 09/02/20 [History Last Taken 09/02/20] furosemide 80 mg tablet 80 mg PO DAILY water pill 09/02/20 [History Last Taken 10/14/21] levothyroxine 88 mcg tablet 88 mcg PO DAILY thyroid 09/02/20 [History Last Taken 10/14/21] lorazepam 1 mg tablet 0.5 mg PO QHS anxiety 09/02/20 [History Last Taken 10/13/21] montelukast 10 mg tablet 10 mg PO DAILY allergies 09/02/20 [History Last Taken 10/14/21] trazodone 100 mg tablet 50 mg PO QHS sleep 09/02/20 [History Last Taken 10/13/21] aspirin 81 mg tablet,delayed release (Adult Aspirin Regimen) 81 mg PO DAILY heart 05/17/21 [History Last Taken 10/14/21 09:30] gabapentin 100 mg capsule (Neurontin) 100 mg PO TID nerve pain 08/25/21 [History Last Taken 10/14/21] insulin detemir U-100 100 unit/mL (3 mL) subcutaneous pen 30 unit subcut QHS blood sugar 09/02/21 [History Last Taken 10/13/21] insulin lispro 100 unit/mL subcutaneous pen 7 unit subcut ACHS blood sugar 09/02/21 [History Last Taken 10/14/21] ipratropium 0.5 mg-albuterol 3 mg (2.5 mg base)/3 mL nebulization soln 3 ml inhalation BID PRN sob 09/02/21 [History Last Taken Unknown] paroxetine HCl 30 mg tablet 40 mg PO QHS mental health 09/02/21 [History Last Taken 10/13/21] atorvastatin 80 mg tablet 80 mg PO QHS Cholestrol 10/22/21 [History Last Taken Unknown] pantoprazole 40 mg tablet,delayed release 40 mg PO BID GERD 10/22/21 [History Last Taken Unknown] acetaminophen 500 mg tablet 1,000 mg PO Q8H PRN Pain 11/03/21 [History Last Taken Unknown] arginine 7 gram-glutamine 7 gram-calcium HMB 1.5 gram oral powder pack (Say) 1 ea PO BID wound healing 11/03/21 [History Last Taken Unknown] bisacodyl 10 mg rectal suppository 10 mg PA DAILY PRN Constipation 11/03/21 [History Last Taken Unknown] collagenase clostridium histo. 250 unit/gram topical ointment (Santyl) 1 applic topical DAILY wound 11/03/21 [History Last Taken Unknown] menthol 0.44 %-zinc oxide 20.6 % topical ointment (Calmoseptine) 1 applic topical BID buttocks 11/03/21 [History Last Taken Unknown] nystatin 100,000 unit/gram topical powder 1 applic topical BID skin irritation 11/03/21 [History Last Taken Unknown] oxycodone 5 mg tablet 5 mg PO Q4H PRN Pain 11/03/21 [History Last Taken Unknown] potassium chloride 20 mEq tablet,extended release 20 meq PO BID supplement 11/03/21 [History Last Taken Unknown] sennosides 8.6 mg tablet (senna) 17.2 mg PO BID stool softener 11/03/21 [History Last Taken Unknown] cefdinir 300 mg capsule 300 mg PO Q12 ATB 11/08/21 [History Last Taken Unknown] diltiazem HCl 120 mg capsule,extended release 24 hr 120 mg PO DAILY heart 11/08/21 [History Last Taken Unknown] metoprolol succinate 50 mg tablet,extended release 24 hr 50 mg PO BID BP 11/08/21 [History Last Taken Unknown] prednisone 20 mg tablet 40 mg PO BREAKFAST antiinflammatory 11/08/21 [History Last Taken Unknown] Allergy/AdvReac Type Severity Reaction Status Date / Time Sulfa (Sulfonamide Allergy Anaphylaxis Verified 11/22/21 10:13 Antibiotics) sulfur dioxide Allergy Anaphylaxis Verified 11/22/21 10:13 Family History Grandmother Diabetes Mother Heart disease Surgical History H/O right heart catheterization History of cataract surgery History of coronary artery stent placement (02/24/17) Tubal ligation status Social History household members: none housing: other details: [facility]. Smoking Status: Former smoker how long ago did patient quit smokin alcohol intake: former year quit: 1999 substance use type: does not use caffeine: Yes Type: carbonated beverages and tea ROS ROS ED Constitutional Constitutional ED: Denies chills, fever(s) or sweats Eyes Eyes: Denies change in vision ENT ENT ED: Denies dysphagia or sore throat Cardiovascular Cardiovascular: Reports chest pain; Denies leg edema, palpitations or racing heartbeat Respiratory/Chest Respiratory/Chest: Denies cough, dyspnea or dyspnea on exertion Gastrointestinal Gastrointestinal: Denies abdominal pain, diarrhea, nausea or vomiting Genitourinary Genitourinary ED: Denies dysuria, hematuria or urinary frequency Musculoskeletal Musculoskeletal: Denies back pain, extremity pain or neck pain Integumentary Denies rash or wounds Neurologic Neurologic: Denies headache(s), paresthesias or weakness EXAM Physical Exam Const Vital Signs: 11/22/21 10:14 11/22/21 10:18 11/22/21 12:19 Temperature 98.2 F Temperature Source Oral Pulse Rate 88 85 Respiratory Rate 18 Respiratory Effort Normal Non-Labored Respiratory Pattern Normal Blood Pressure 152/64 H 94/78 Blood Pressure Mean 93 83 Pulse Ox 100 Oxygen Delivery Method Nasal Cannula Oxygen Flow Rate (L/min) 4 Positive well nourished and well developed General Appearance ED: well developed and NAD HEENT Reports moist mucous membranes normocephalic and atraumatic Eyes PERRL, EOMs intact bilaterally and conjunctivae normal General Eye ED: Yes normal appearance of both eyes Neck no lymphadenopathy and supple General: Negative for tenderness Chest Wall Chest: Negative for tenderness Resp normal respiratory effort and normal air movement Effort and Inspection: symmetric chest movement; Negative for respiratory distress Cardio regular rate, regular rhythm and no murmurs Peripheral Pulses: pulses 2+ throughout GI normal to inspection, nondistended, normoactive bowel sounds and non-tender Palpation: Negative for guarding or rebound tenderness present Back/Spine no CVA tenderness and no thoracic nor lumbar tenderness Extremity normal to inspection Extremity Narrative: Left lower extremity dressing to the foot, great toe amputation with eschar, no erythema or drainage. General Extremety ED: Negative for edema or tenderness General Extremity: Negative for edema Neuro oriented x3 and no sensory deficits noted Sensorium / Orientation: awake and alert Skin no rashes or lesions noted and no wounds Skin Narrative: Right upper arm PICC line clean, dry, intact. MDM MDM MDM Narrative Medical decision making narrative: Patient is reporting no chest pain states she was lying. With complaint cardiac work-up initiated which was normal. Stable hemoglobin 8.7. Creatinine 0.91. Chest x-ray reviewed by myself and radiology mild congestion. However she has no respiratory stress she is stable on her current oxygen with her COPD CHF history. She is alert and oriented x3 however reporting concerns for a office cleaner to her house when she is at TCU. Urine was added leukocytes of 500 white blood cells 5-10. Culture sent. Reviewing records had recent culture that was vancomycin-resistant Enterococcus, ID was consulted and TCU 8 days ago, urine with only WBCs 25-50. She had no symptoms as she has none currently. They recommended stopping her Macrobid and monitoring. Also reviewing records, apparently she is not on any IV infusions her last treatment was 10 days started on the 14 days ago. Nursing will relay back to facility to see if this can be discontinued there. Patient will be discharged back to TCU. Lab Data Attestation: I reviewed the patient's lab results. Labs: Laboratory Results - last 24 hr 11/22/21 11/22/21 11/22/21 11:00 11:00 11:39 WBC 8.9 RBC 3.11 L Hgb 8.7 L Hct 28.6 L MCV 92.0 MCH 28.0 MCHC 30.4 L RDW Std Deviation 57.1 H RDW Coeff of [place]agen 17.3 H Plt Count 171 MPV 10.4 Immature Gran % (Auto) 0.300 Neut % (Auto) 81.5 H Lymph % (Auto) 11.3 L [place] % (Auto) 5.9 Eos % (Auto) 0.7 Baso % (Auto) 0.3 Absolute Neuts (auto) 7.2 Absolute Lymphs (auto) 1.00 Nucleated RBC % 0 Sodium 143 Potassium 3.3 L Chloride 104 Carbon Dioxide 34.0 H Anion Gap 5 BUN 18 Creatinine 0.91 Estim Creat Clear Calc 55.46 Est GFR (MDRD) Af Amer 80 Est GFR (MDRD) Non-Af 66 BUN/Creatinine Ratio 19.8 Glucose 198 H Calcium 8.7 Troponin I High Sens 17 Urine Color Yellow Urine Clarity Clear Urine pH 8.0 Ur Specific [place] 1.015 Urine Protein 100 H Urine Glucose (UA) Normal Urine Ketones Negative Urine Occult Blood Negative Urine Nitrite Negative Urine Bilirubin Negative Urine Urobilinogen Normal Ur Leukocyte Esterase 500 H Urine RBC 0-5 SEEN Urine WBC 5-10 SEEN Ur Squamous Epith Cells 0-5 SEEN Urine Bacteria RARE Urine Mucus 0 SEEN Radiography Diagnostic Testing: Clinical Impression(s) from Imaging Studies Chest X-Ray 11/22/21 10:42 IMPRESSION: Mild degree of cardiomegaly and CHF. Electronically Signed: Butch Ling MD at 11:16 EDT , EKG Initial EKG: Attestation: I personally reviewed and interpreted this EKG as follows: Comments: Sinus arrhythmia rate of [address] or T wave changes. Discharge Plan Triage Chief Complaint: Chest Pain ED Provider: Orlin Roger Dx/Rx/DC Orders Clinical Impression: Chest pain, Obstructive sleep apnea, On home O2, Chronic obstructive pulmonary disease, Anemia Instructions: ED Chest Pain, Uncertain Cause Prescriptions: No Action aspirin [Adult Aspirin Regimen] 81 mg tablet,delayed release (DR/EC) 81 mg PO DAILY levothyroxine 88 mcg Tablet 88 mcg PO DAILY furosemide 80 mg Tablet 80 mg PO DAILY Hold Instructions: Resume on 11/10/21. Rx Instructions: resume on 11/10 trazodone 100 mg Tablet 50 mg PO QHS montelukast 10 mg Tablet 10 mg PO DAILY lorazepam 1 mg Tablet 0.5 mg PO QHS fluticasone propionate 50 mcg/actuation [place],Suspension 1 spray INTRANASAL DAILY PRN (Reason: Allergies) bupropion HCl 300 mg Tablet Extended Release 24 Hr 150 mg PO QHS fluticasone furoate-vilanterol [Breo Ellipta] 100-25 mcg/dose Blister With Device 1 inh INHALATION BID ipratropium-albuterol 0.5 mg-3 mg(2.5 mg base)/3 mL solution for nebulization 3 ml INHALATION BID PRN (Reason: sob) insulin lispro 100 unit/mL insulin pen 7 unit SUBCUT ACHS Protocol: 6. Sliding Scale Insulin Custom Condition: 151-175 Dose/Route: 5 Condition: 176-200 Dose/Route: 7 Condition: 201-250 Dose/Route: 9 Condition: 251-300 Dose/Route: 11 Condition: 301-350 Dose/Route: 13 Condition: 351-400 Dose/Route: 15 Condition: 401-450 Dose/Route: 19 Protocol Text: Custom Sliding Scale paroxetine HCl 30 mg tablet 40 mg PO QHS insulin detemir U-100 100 unit/mL (3 mL) insulin pen 30 unit SUBCUT QHS gabapentin [Neurontin] 100 mg Capsule 100 mg PO TID atorvastatin 80 mg tablet 80 mg PO QHS pantoprazole 40 mg tablet,delayed release (DR/EC) 40 mg PO BID menthol-zinc oxide [Calmoseptine] 0.44-20.6 % Ointment 1 applic TOPICAL BID sennosides [senna] 8.6 mg Tablet 17.2 mg PO BID acetaminophen 500 mg Tablet 1,000 mg PO Q8H PRN (Reason: Pain) bisacodyl 10 mg Suppository 10 mg PA DAILY PRN (Reason: Constipation) nystatin 100,000 unit/gram Powder 1 applic TOPICAL BID Santyl 250 unit/gram Ointment 1 applic TOPICAL DAILY oxycodone 5 mg Tablet 5 mg PO Q4H PRN (Reason: Pain) Say 7-7-1.5 gram Powder In Packet 1 ea PO BID potassium chloride 20 mEq Tablet Extended Release 20 meq PO BID metoprolol succinate 50 mg tablet extended release 24 hr 50 mg PO BID prednisone 20 mg tablet 40 mg PO BREAKFAST Rx Instructions: 40 mg for 3 days, 30 mg for 3 days, 20 mg for 3 days, 10 mg for 3 days diltiazem HCl 120 mg capsule,extended release 24hr 120 mg PO DAILY cefdinir 300 mg capsule 300 mg PO Q12 Primary Care Provider: Froy Gonzales Referrals: Froy Gonzales MD [Primary Care Provider] - 2 Days Activity Restrictions/Additional Instructions: You stated you had no chest pains on presentation. Cardiac work-up was negative. Chest x-ray with mild congestion you are stable on your current oxygen no respiratory distress. Disposition Disposition: Senior Living Facility Discharge Location: [facility] Transitional Care Unit Discharge Date/Time: 11/22/21 12:59
[2021-11-22 11:23] LABS: Anion Gap 5 (5-15); BUN 18 mg/dL (7-18); BUN/Creat Ratio 19.8 RATIO (10-20); Calcium,Total 8.7 mg/dL (8.5-10.1); Chloride 104 mmol/L (98-107); Creatinine, Serum 0.91 mg/dL (0.55-1.02); EST Glomerular Filtration Rate 66 mL/min (>60); Est Glom Filt Rate - Afr Amer 80 mL/min (>60); Estimated Creatinine Clearance 55.46 ml/min; Glucose 198 mg/dL (74-106); Potassium 3.3 mmol/L (3.5-5.1); Sodium Level 143 mmol/L (136-145); Troponin-I HS 17 pg/mL (3.0-54.0)
[2021-11-22 11:45] LABS: Mucous, Urine 0 SEEN /hpf (<or=2+)
[2021-11-22 11:47] LABS: Glucose, Dipstick Normal (Normal); Ketone-Dipstick Negative (Negative); Leukocyte Esterase-Dipstick 500 /ul (Negative); Nitrite-Dipstick Negative (Negative); Occult Blood-Urine Negative /ul (Negative); Protein-Dipstick 100 mg/dl (Negative); Specific Gravity, Urine 1.015 (1.002-1.030); Urine Bilirubin Dipstick Negative (Negative); Urine Urobilinogen Normal (Normal)
[2021-11-22 11:53] LABS: Color, Urine Yellow (Yellow); Urine Clarity Clear (Clear)
[2021-11-22 11:56] LABS: White Blood Cells 5-10 SEEN /hpf (0-5)
[2021-11-22 11:57] LABS: Red Blood Cells-Urine 0-5 SEEN /hpf (0-5); Squamous Epithelial Cells - UA 0-5 SEEN /hpf (5-10)
[2021-11-22 11:58] LABS: Bacteria RARE /hpf (None Seen)
[2021-11-22 12:19] VITALS: BP 94/78; PULSE 85
--- NOTE | 2021-11-22 12:58 | ED.RN ---
some confusion noted while in ED. asking to talk to police crime scene technician about someone trying to steal her things. Security went to bedside to talk with pt.
--- NOTE | 2021-11-25 10:30 | ED.RN ---
Urine culture result shown to Dr Alston. Per Dr Alston no change in treatment at this time.
== END 2021-11-22 12:59 | disposition skilled nursing facility (03) ==
PROVIDERS: Emergency Provider Emergency Medicine; PCP Family Medicine; Visit Provider Emergency Medicine
DX: R07.9 Chest pain, unspecified (principal); Z89.412 Acquired absence of left great toe; J44.9 Chronic obstructive pulmonary disease, unspecified; I11.0 Hypertensive heart disease with heart failure; I50.9 Heart failure, unspecified; E11.42 Type 2 diabetes mellitus with diabetic polyneuropathy; I48.0 Paroxysmal atrial fibrillation; Z79.4 Long term (current) use of insulin; D64.9 Anemia, unspecified; E78.5 Hyperlipidemia, unspecified; Z87.891 Personal history of nicotine dependence; F32.A Depression, unspecified; I25.10 Atherosclerotic heart disease of native coronary artery without angina pectoris; G47.33 Obstructive sleep apnea (adult) (pediatric); Z79.01 Long term (current) use of anticoagulants; Z79.899 Other long term (current) drug therapy; Z79.52 Long term (current) use of systemic steroids; Z99.81 Dependence on supplemental oxygen
CPT/HCPCS: 36592; 71046; 80048; 81001; 84484; 85025; 87077; 87086; 87088; 87186; 93005; 99283; A4216

== ENCOUNTER 2021-11-26 08:59 | Emergency (ER) | payer MEDICARE, MEDICAID, SELFPAY ==
[2021-11-26] VITALS (9 sets, daily range): BP systolic 107–151; BP diastolic 47–63; PULSE 76–98; RESP 16–18; TEMP 36–36.6; O2SAT 94–100; BMI 32.1
--- NOTE | 2021-11-26 09:31 | EX.ED.VIS.PS ---
HPI HPI - Psych History of Present Illness Chief Complaint: Mental Health Narrative Narrative: 66-year-old female presenting via EMS. Apparently she was recently hospitalized at [facility] and discharged to [facility]. Last night she told staff there that she was suicidal and was transferred to [facility] and Was seen and evaluated by the ED physician. Apparently she did not see anybody from crisis or psychiatry. It is reported to me that her ex- signed her out AGAINST MEDICAL ADVICE and took her back to her apartment. Initially when I spoke to her she did not mention any of this. She states she was here because she was having some confusion. She told me that she left [facility] last night because she felt unsafe but then felt like she wanted to go back because she was safe there. She states she wants to go back to [facility]. Apparently [facility] does not want her back at this point. She did tell me that she does not feel confused. She states that she knows that her mother is a mcfp and then stated oh no, my mother is that I am sorry she states he is not hallucinating. She denied hearing voices. She does not admit to being suicidal currently. [facility] Medical History Acute cervical myofascial strain Acute on chronic respiratory failure with hypoxemia Amputated toe of left foot Anemia Asthma Atherosclerotic heart disease of [place] coronary artery without angina pectoris Atrial fibrillation CAD (coronary artery disease) CHF (congestive heart failure) Chronic heart failure with preserved ejection fraction (HFpEF) Chronic heel ulcer Chronic respiratory failure with hypoxia, on home oxygen therapy Chronic ulcer of great toe of left foot Closed head injury Congestive heart failure (CHF) COPD (chronic obstructive pulmonary disease) Decubitus ulcer of dorsum of foot, stage 2 Decubitus ulcer of left heel, stage 2 Decubitus ulcer of left heel, stage 3 Decubitus ulcer, heel, left, unstageable Depression Diabetes mellitus with diabetic polyneuropathy Diabetes type 2, controlled Diabetic foot ulcers Diverticulitis Essential hypertension Former smoker History of amputation of left great toe History of non-ST elevation myocardial infarction (NSTEMI) (02/24/17) Hyperlipidemia Hypothyroid Myocardial infarct Non-rheumatic tricuspid valve insufficiency Nondisplaced fracture of distal phalanx of right great toe, initial encounter for closed fracture Nonrheumatic mitral (valve) insufficiency Obesity Obstructive sleep apnea On home O2 Renal insufficiency Secondary pulmonary arterial hypertension Type 2 diabetes mellitus Home Medications furosemide 80 mg tablet 80 mg PO DAILY water pill 09/02/20 [History Last Taken 10/14/21] levothyroxine 88 mcg tablet 88 mcg PO DAILY thyroid 09/02/20 [History Last Taken 10/14/21] aspirin 81 mg tablet,delayed release (Adult Aspirin Regimen) 81 mg PO DAILY heart 05/17/21 [History Last Taken 10/14/21 09:30] insulin detemir U-100 100 unit/mL (3 mL) subcutaneous pen 30 unit subcut QHS blood sugar 09/02/21 [History Last Taken 10/13/21] paroxetine HCl 30 mg tablet 40 mg PO QHS mental health 09/02/21 [History Last Taken 10/13/21] pantoprazole 40 mg tablet,delayed release 40 mg PO BID GERD 10/22/21 [History Last Taken Unknown] arginine 7 gram-glutamine 7 gram-calcium HMB 1.5 gram oral powder pack (Say) 1 ea PO BID wound healing 11/03/21 [History Last Taken Unknown] bisacodyl 10 mg rectal suppository 10 mg IA DAILY PRN Constipation 11/03/21 [History Last Taken Unknown] collagenase clostridium histo. 250 unit/gram topical ointment (Santyl) 1 applic topical DAILY wound 11/03/21 [History Last Taken Unknown] menthol 0.44 %-zinc oxide 20.6 % topical ointment (Calmoseptine) 1 applic topical BID buttocks 11/03/21 [History Last Taken Unknown] nystatin 100,000 unit/gram topical powder 1 applic topical BID skin irritation 11/03/21 [History Last Taken Unknown] metoprolol succinate 50 mg tablet,extended release 24 hr 50 mg PO BID BP 11/08/21 [History Last Taken Unknown] acetaminophen 500 mg tablet 1,000 mg PO Q6H PRN PRN Pain Score 1-3 #0 tabs 11/22/21 [Rx Last Taken Unknown] atorvastatin 40 mg tablet 40 mg PO QHS #0 tabs 11/22/21 [Rx Last Taken Unknown] budesonide 0.5 mg/2 mL suspension for nebulization 0.5 mg (2 mL) inhalation BID.RT #0 mL 11/22/21 [Rx Last Taken Unknown] bupropion HCl 150 mg 24 hr tablet, extended release 150 mg PO DAILY #0 tabs 11/22/21 [Rx Last Taken Unknown] insulin lispro 100 unit/mL subcutaneous pen (Humalog KwikPen (U-100) Insulin) 10 unit (0.1 mL) subcut TIDAC #0 mL 11/22/21 [Rx Last Taken Unknown] ipratropium bromide 0.02 % solution for inhalation 0.5 mg (2.5 mL) inhalation Q6HWA.RT #0 mL 11/22/21 [Rx Last Taken Unknown] lorazepam 1 mg tablet 1 mg PO QHS 3 days #3 tabs 11/22/21 [Rx Last Taken Unknown] oxycodone 5 mg tablet 2.5 mg PO Q4H PRN Pain Score 4-10 3 days #9 tabs 11/22/21 [Rx Last Taken Unknown] sennosides 8.6 mg tablet (Kellie-nazario) 8.6 mg PO BID #0 tabs 11/22/21 [Rx Last Taken Unknown] nitrofurantoin monohydrate/macrocrystals 100 mg capsule 100 mg PO BID 5 days #10 caps 11/23/21 [Rx Last Taken Unknown] potassium chloride 20 mEq tablet,extended release(part/cryst) (Klor-Con M) 20 meq PO DAILYCM #0 tabs 11/23/21 [Rx Last Taken Unknown] Allergy/AdvReac Type Severity Reaction Status Date / Time Sulfa (Sulfonamide Allergy Anaphylaxis Verified 11/22/21 10:13 Antibiotics) sulfur dioxide Allergy Anaphylaxis Verified 11/22/21 10:13 Family History Grandmother Diabetes Mother Heart disease Surgical History H/O right heart catheterization History of cataract surgery History of coronary artery stent placement (02/24/17) Tubal ligation status Social History household members: none housing: other details: [facility]. Smoking Status: Former smoker how long ago did patient quit smokin alcohol intake: former year quit: 1999 substance use type: does not use caffeine: Yes Type: carbonated beverages and tea ROS ROS ED Constitutional Constitutional ED: Denies chills or fever(s) Eyes Eyes: Denies blurry vision or change in vision ENT ENT ED: Denies rhinorrhea or sore throat Cardiovascular Cardiovascular: Denies chest pain or palpitations Respiratory/Chest Respiratory/Chest: Denies cough or dyspnea Gastrointestinal Gastrointestinal: Denies abdominal pain, constipation, diarrhea, melena, nausea or vomiting Genitourinary Genitourinary ED: Denies dysuria or hematuria Musculoskeletal Musculoskeletal: Denies arthralgias Integumentary Denies abscess or Abrasions Neurologic Neurologic: Denies headache(s) or paresthesias Psychiatric Psychiatric: Reports anxiety and depression Endocrine Endocrinology: Denies polydipsia or polyphagia EXAM Physical Exam Const Vital Signs: 11/26/21 09:01 11/26/21 10:31 11/26/21 12:34 Temperature 97.8 F Temperature Source Oral Pulse Rate 84 86 84 Respiratory Rate 16 18 18 Blood Pressure 135/49 H 151/63 H Blood Pressure Mean 77 92 Pulse Ox 95 100 96 Oxygen Delivery Method Room Air Nasal Cannula Nasal Cannula Oxygen Flow Rate (L/min) 3 3 Positive well nourished General Appearance ED: NAD; Negative for pallor HEENT Reports moist mucous membranes normocephalic and atraumatic Eyes PERRL and EOMs intact bilaterally Resp normal respiratory effort and clear to auscultation bilaterally Cardio Rate: regular rate Rhythm: regular rhythm Neuro oriented x3 and CN's II-XII intact bilaterally Sensorium / Orientation: alert Psych cooperative, speech normal, denies hallucinations, denies homicidal ideation and denies suicidal ideation Appearance: grossly normal Attitude: calm Speech: normal speech Thought Process: confused Attention / Concentration: attention grossly intact Insight: poor Judgement: poor Skin General Skin Exam: Negative for jaundice or pallor MDM MDM MDM Narrative Medical decision making narrative: Patient seen and evaluated on arrival. Vital signs are stable and she is afebrile. It is reported that she had suicidal thoughts yesterday and was signed out of another hospital by her ex- and was at home alone. Apparently this is an assisted living facility. The patient does not admit to any suicidal ideation to me. I did obtain lab work and her CBC Does not show any leukocytosis. Hemoglobin 9.6 and near baseline. Creatinine slightly elevated 1.08 potassium is slightly low at 3.2. This was repleted orally. Glucose 168 without anion gap. Rapid COVID testing is negative. Urinalysis shows negative nitrites. There is 25 occult blood. 500 leukocyte esterase. It does look like the urine is similar to her recent admission. She was seen by ID and they discontinued antibiotics. I will send this for culture. EtOH negative. Urine drug screen positive for MDMA, and is unclear if this is cross reaction of her medication. Patient is medically cleared for crisis evaluation. Crisis did come to evaluate the patient. Based on her evaluation they did not think she needed admission for inpatient psychiatric care. The patient will need more than assisted living because she is not able to care for herself. The health social work professor is currently working on getting her placed. If she cannot be placed tonight she will be admitted for placement. Impression: 1. Confusion 2. Weakness Lab Data Attestation: I reviewed the patient's lab results. Labs: Laboratory Results - last 24 hr 11/26/21 11/26/21 11/26/21 09:35 09:35 10:05 WBC 7.2 RBC 3.36 L Hgb 9.6 L Hct 30.6 L MCV 91.1 MCH 28.6 MCHC 31.4 L RDW Std Deviation 58.9 H RDW Coeff of Magen 17.7 H Plt Count 165 MPV 10.2 Immature Gran % (Auto) 0.300 Neut % (Auto) 78.2 H Lymph % (Auto) 13.7 L [place] % (Auto) 6.2 Eos % (Auto) 1.2 Baso % (Auto) 0.4 Absolute Neuts (auto) 5.6 Absolute Lymphs (auto) 0.99 Nucleated RBC % 0 Sodium Potassium Chloride Carbon Dioxide Anion Gap BUN Creatinine Estim Creat Clear Calc Est GFR (MDRD) Af Amer Est GFR (MDRD) Non-Af BUN/Creatinine Ratio Glucose Calcium Urine Color Straw Urine Clarity Sl. Cloudy Urine pH 8.0 Ur Specific [place] 1.015 Urine Protein 30 H Urine Glucose (UA) Normal Urine Ketones Negative Urine Occult Blood 25 H Urine Nitrite Negative Urine Bilirubin Negative Urine Urobilinogen Normal Ur Leukocyte Esterase 500 H Urine RBC Cancelled Urine WBC Cancelled Ur Squamous Epith Cells Cancelled Ur Transition Epith Cell Cancelled Ur Renal Epithelial Cell Cancelled Calcium Oxalate Crystal Cancelled Uric Acid Crystals Cancelled Triple Phos Crystals Cancelled Other Crystals Cancelled Amorphous Sediment Cancelled Urine Bacteria Cancelled Hyaline Casts Cancelled Fine Granular Casts Cancelled Coarse Granular Casts Cancelled Waxy Casts Cancelled RBC Casts Cancelled WBC Casts Cancelled Urine Mucus Cancelled Urine Trichomonas Cancelled Urine Yeast Cancelled Urine Opiates Screen NEGATIVE Urine Methadone Screen NEGATIVE Ur Barbiturates Screen NEGATIVE Ur Phencyclidine Scrn NEGATIVE Ur Amphetamines Screen NEGATIVE MDMA (Ecstasy) Screen POSITIVE H U Benzodiazepines Scrn NEGATIVE Urine Cocaine Screen NEGATIVE U Cannabinoids Screen NEGATIVE Ur Drug Screen Comment Ethyl Alcohol 11/26/21 11/26/21 11/26/21 10:05 10:05 11:53 WBC RBC Hgb Hct MCV MCH MCHC RDW Std Deviation RDW Coeff of Magen Plt Count MPV Immature Gran % (Auto) Neut % (Auto) Lymph % (Auto) [place] % (Auto) Eos % (Auto) Baso % (Auto) Absolute Neuts (auto) Absolute Lymphs (auto) Nucleated RBC % Sodium 145 Potassium 3.2 L Chloride 105 Carbon Dioxide 29.0 Anion Gap 11 BUN 11 Creatinine 1.08 H Estim Creat Clear Calc 46.73 Est GFR (MDRD) Af Amer 65 Est GFR (MDRD) Non-Af 54 L BUN/Creatinine Ratio 10.2 Glucose 168 H Calcium 8.7 Urine Color Yellow Urine Clarity Clear Urine pH 7.0 Ur Specific [place] 1.010 Urine Protein 30 H Urine Glucose (UA) Normal Urine Ketones Negative Urine Occult Blood 10 H Urine Nitrite Negative Urine Bilirubin Negative Urine Urobilinogen Normal Ur Leukocyte Esterase 500 H Urine RBC 0 SEEN Urine WBC 25-50 SEEN Ur Squamous Epith Cells 0-5 SEEN Ur Transition Epith Cell Ur Renal Epithelial Cell Calcium Oxalate Crystal Uric Acid Crystals Triple Phos Crystals Other Crystals Amorphous Sediment Urine Bacteria 2+ Hyaline Casts Fine Granular Casts Coarse Granular Casts Waxy Casts RBC Casts WBC Casts Urine Mucus 0 SEEN Urine Trichomonas Urine Yeast Urine Opiates Screen Urine Methadone Screen Ur Barbiturates Screen Ur Phencyclidine Scrn Ur Amphetamines Screen MDMA (Ecstasy) Screen U Benzodiazepines Scrn Urine Cocaine Screen U Cannabinoids Screen Ur Drug Screen Comment Ethyl Alcohol 6.0 Discharge Plan Triage Chief Complaint: Mental Health ED Provider: Reese Saez Dx/Rx/DC Orders Prescriptions: No Action aspirin [Adult Aspirin Regimen] 81 mg tablet,delayed release (DR/EC) 81 mg PO DAILY levothyroxine 88 mcg Tablet 88 mcg PO DAILY furosemide 80 mg Tablet 80 mg PO DAILY Hold Instructions: Resume on 11/10/21. Rx Instructions: resume on 11/10 paroxetine HCl 30 mg tablet 40 mg PO QHS insulin detemir U-100 100 unit/mL (3 mL) insulin pen 30 unit SUBCUT QHS pantoprazole 40 mg tablet,delayed release (DR/EC) 40 mg PO BID menthol-zinc oxide [Calmoseptine] 0.44-20.6 % Ointment 1 applic TOPICAL BID bisacodyl 10 mg Suppository 10 mg IA DAILY PRN (Reason: Constipation) nystatin 100,000 unit/gram Powder 1 applic TOPICAL BID Santyl 250 unit/gram Ointment 1 applic TOPICAL DAILY Say 7-7-1.5 gram Powder In Packet 1 ea PO BID metoprolol succinate 50 mg tablet extended release 24 hr 50 mg PO BID atorvastatin 40 mg Tablet 40 mg PO QHS Qty: 0 0RF sennosides [Kellie-nazario] 8.6 mg Tablet 8.6 mg PO BID Qty: 0 0RF acetaminophen 500 mg Tablet 1,000 mg PO Q6H PRN PRN (Reason: Pain Score 1-3) Qty: 0 0RF oxycodone 5 mg Tablet 2.5 mg PO Q4H PRN (Reason: Pain Score 4-10) 3 Days Qty: 9 0RF bupropion HCl 150 mg Tablet Extended Release 24 Hr 150 mg PO DAILY Qty: 0 0RF budesonide 0.5 mg/2 mL Suspension For Nebulization 0.5 mg inhalation BID.RT Qty: 0 0RF lorazepam 1 mg Tablet 1 mg PO QHS 3 Days Qty: 3 0RF ipratropium bromide 0.02 % Solution 0.5 mg inhalation Q6HWA.RT Qty: 0 0RF insulin lispro [Humalog KwikPen Insulin] 100 unit/mL Insulin Pen 10 unit subcut TIDAC Qty: 0 0RF nitrofurantoin monohyd/m-cryst 100 mg Capsule 100 mg PO BID 5 Days Qty: 10 0RF potassium chloride [Klor-Con M20] 20 mEq Tablet,Er Particles/Crystals 20 meq PO DAILYCM Qty: 0 0RF Primary Care Provider: Froy Gonzales Referrals: Froy Gonzales MD [Primary Care Provider] -
--- NOTE | 2021-11-26 09:34 | EKG12_ITS ---
Test Reason : MEDICAL CLEARANCE Blood Pressure : / mmHG Vent. Rate : 085 BPM Atrial Rate : 085 BPM P-R Int : 156 ms QRS Dur : 084 ms QT Int : 400 ms P-R-T Axes : 082 018 074 degrees QTc Int : 476 ms Sinus rhythm with marked sinus arrhythmia Otherwise normal ECG Confirmed by HEYDI ROSS, GODWIN ([id number]), fashion editor JASON PEREIRA ([id number]) on 11/29/2021 12:37:10 PM Referred By: Confirmed By:GODWIN SOLIZ MD
--- NOTE | 2021-11-26 09:44 | ED.RN ---
Spoke to Arash Martin. According to Arash Martin the pt was voicing suicidal ideations last night. She told them that she had tried to kill herself in the past and was feeling suicidal then. They sent her to [facility] last night and her ex signed her out AMA. Ex took her back to her apartment at [facility] because she was not allowed to go back to [facility] due to the issues she caused at their facility last night. Pt told the squad that she likes it at [facility] and just needs a ride back there. Daughter then called and wanted to know what was going on. Daughter was updated and she said that pt has been off for the last month or so. She said that she lies about things constantly and keeps talking about doing and seeing things that pertain to her mother. Pts mother in 2000. Pt was then confronted with these issues. It was brought up about her [facility] in [facility] where she lied about having chest pain so that she didnt have to go to [facility]. The pt called EMS today about foot pain and then claimed it was for a ride to [facility]. Pt was advised that she will need to see crisis this time and wont be able to sign out AMA. Daughter feels like she is having a mental breakdown and needs to be placed somewhere. Dr Saez is aware of this. Pt stated that she will quit lying and tell the truth from now on.
[2021-11-26 09:53] LABS: Color, Urine Straw (Yellow); Glucose, Dipstick Normal (Normal); Ketone-Dipstick Negative (Negative); Leukocyte Esterase-Dipstick 500 /ul (Negative); Nitrite-Dipstick Negative (Negative); Occult Blood-Urine 25 /ul (Negative); Protein-Dipstick 30 mg/dl (Negative); Specific Gravity, Urine 1.015 (1.002-1.030); Urine Bilirubin Dipstick Negative (Negative); Urine Clarity Sl. Cloudy (Clear); Urine Urobilinogen Normal (Normal)
[2021-11-26 10:08] LABS: Amphetamine Urine VISTA NEGATIVE (<1000 ng/mL); Barbiturate Urine VISTA NEGATIVE (< 200 ng/mL); Benzodiazepine Urine VISTA NEGATIVE (< 200 ng/mL); Cocaine Urine VISTA NEGATIVE (< 300 ng/mL); Ecstacy Urine VISTA POSITIVE (< 500 ng/mL); Methadone Urine VISTA NEGATIVE (< 300 ng/mL); PCP Urine VISTA NEGATIVE (< 25 ng/mL); THC Urine VISTA NEGATIVE (< 50 ng/mL); Vista UDS pH Range 8
[2021-11-26 10:16] LABS: Absolute Lymphocyte Count 0.99 X10^3/uL (0.83-4.51); Absolute Neutrophil Count 5.6 X10^3/uL (2.0-7.7); Basophil# 0.03 X10^3/uL; Basophil% 0.4 % (0-1); Eosinophil# 0.09 X10^3/uL; Eosinophils% 1.2 % (0-5); Hematocrit 30.6 % (37-47); Hemoglobin 9.6 g/dL (12.0-15.0); Lymphocyte # 0.99 X10^3/ul (0.83-4.51); Lymphocyte % 13.7 % (19-41); Mean Corp Hgb Conc 31.4 g/dL (32-36); Mean Corpuscular Hgb 28.6 pg (27.0-32.0); Mean Corpuscular Volume 91.1 fL (81-99); Mean Platelet Vol. 10.2 fl (6.2-12.0); Monocyte# 0.45 X10^3/uL; Monocyte% 6.2 % (0-10); NRBC Flagged by Analyzer 0 % (0-5); Neutrophil # 5.64 X10^3/uL (2.7-7.7); Neutrophil % 78.2 % (47-70); Platelet Count 165 K/mm3 (150-450); RBC Distribution Width CV 17.7 % (11.6-14.6); RBC Distribution Width SD 58.9 fl (35.1-43.9); Red Blood Count 3.36 M/mm3 (4.2-5.4); White Blood Count 7.2 K/mm3 (4.4-11.0)
[2021-11-26 10:29] LABS: Anion Gap 11 (5-15); BUN 11 mg/dL (7-18); BUN/Creat Ratio 10.2 RATIO (10-20); Calcium,Total 8.7 mg/dL (8.5-10.1); Chloride 105 mmol/L (98-107); Creatinine, Serum 1.08 mg/dL (0.55-1.02); EST Glomerular Filtration Rate 54 mL/min (>60); Est Glom Filt Rate - Afr Amer 65 mL/min (>60); Estimated Creatinine Clearance 46.73 ml/min; Glucose 168 mg/dL (74-106); Potassium 3.2 mmol/L (3.5-5.1); Sodium Level 145 mmol/L (136-145)
--- NOTE | 2021-11-26 10:49 | NURSING ---
CALLED CRISIS. NO ANSWER
--- NOTE | 2021-11-26 10:57 | NURSING ---
FAXED CHART TO CRISIS [phone] AND [phone]
[2021-11-26 11:56] LABS: Mucous, Urine 0 SEEN /hpf (<or=2+); Red Blood Cells-Urine 0 SEEN /hpf (0-5)
[2021-11-26 11:58] LABS: Color, Urine Yellow (Yellow); Glucose, Dipstick Normal (Normal); Ketone-Dipstick Negative (Negative); Leukocyte Esterase-Dipstick 500 /ul (Negative); Nitrite-Dipstick Negative (Negative); Occult Blood-Urine 10 /ul (Negative); Protein-Dipstick 30 mg/dl (Negative); Urine Bilirubin Dipstick Negative (Negative); Urine Clarity Clear (Clear); Urine Urobilinogen Normal (Normal)
[2021-11-26 12:10] LABS: Bacteria 2+ /hpf (None Seen); Squamous Epithelial Cells - UA 0-5 SEEN /hpf (5-10); White Blood Cells 25-50 SEEN /hpf (0-5)
[2021-11-26] MEDS: Potassium Chloride Oral Tablet 20 MEQ 40 MEQ PO (12:32)
--- NOTE | 2021-11-26 14:06 | NURSING ---
[facility] IN ROOM
[2021-11-26] MEDS: LORazepam 1 MG Tablet PO (14:44)
--- NOTE | 2021-11-26 15:15 | NURSING ---
Nupur from crisis called in-- unsure if pt able to be placed in [facility], not sure if she meets criteria. She is also in contact w/ Christianne, our SW, who will be calling Arash Martin to inquire about placement.
--- NOTE | 2021-11-26 17:15 | ED.RN ---
PT UP WANDERING IN HALLWAY WITH NO OXYGEN.PT REMINDED THAT SHE MUST WEAR HER OXYGEN
--- NOTE | 2021-11-26 17:29 | ED.RN ---
pts o2 removed to see how she does without it.
--- NOTE | 2021-11-26 17:40 | CM.ED ---
GREG was updated by Nupur at [facility] that she had seen patient. No family members can take patient home. [facility] can not [facility] to [facility]. GREG called [facility] and spoke to Nunu. Nunu said that patient was feeling SI and 1:1 provided but the patient reports she has been mentally ill since she was younger per note. Patient told [facility] staff that I need help. Patient was seen at [facility] and discharge. However patient was picked up by her ex and taken back to [facility] and thus it is considered that she left AMA from [facility]. Nunu said that the DON will call this radio news writer. GREG did not receive a call back. GREG called Gregory at [facility] and left voice mail message. GREG updated Sathish GARZA called [facility] and spoke to construction administrative assistantscalloper Leana. Leana said that patient can not return to [facility]. Leana said that patient had her toe amputated and was hallucinating and violent and not allowed back in the building. Leana said that the plan was for patient to go to a SNF for good. Leana said that patient was going to stay with her ex so he came to get her oxygen however she boycotted and director of social services asked what that meant and Leana said that patient stayed in her room and refused to come out. Police were involved and they could not get her out of the room. GREG called Peyton at [facility] for clarification aobut the situation the previous night and Peyton said I know she is not able to come back and that she has beeen discharged. GREG updated Nupur from [facility]. Nupur said that she is going to recommend geripsych for patient once this radio news writer reviewed EMS records and [facility] record. GREG faxed EMS record to Nupur at [facility]. GREG talked to patient. She wants to go to a hospital. She reports she is willing to walk to see what her oxygen level will be. Christianne DASILVA
--- NOTE | 2021-11-26 19:23 | CM.ED ---
GREG called [place] and they do not take oxygen. GREG called [facility]. They have behavioral health unit and take patient's with oxygen. GREG made referral to Nadeem. Fax referrals to [phone]. GREG made referral. GREG called Rama at [facility]. She said that patient never had an issue with being combative. GREG texted TCU SW and they report no issues with patient being combative. GREG called Nupur at [facility] and updated her regarding possible placement for patient. She will fax referral to [facility]. Nupur called [facility] and they would review patient. GREG faxed covid and ekg to Nupur at [facility]. GREG called Eneida at [facility] and advise that [facility] reported that patient was never combative and that was not an issue. They requested notes from ED. Christianne DASILVA
--- NOTE | 2021-11-26 19:45 | ED.RN ---
attempting to contact [facility] for medication list since recently released there last night
[2021-11-26] MEDS: Atorvastatin Calcium 40 MG Tablet PO (21:33)
[2021-11-26] MEDS: Pantoprazole Sodium 40 MG Tablet PO (21:34)
[2021-11-26] MEDS: Senna Tablet 1 TABLET PO (21:35)
[2021-11-26] MEDS: Metoprolol(XL)Succ 50 MG Tablet PO (21:36)
[2021-11-26] MEDS: Paroxetine 20 MG Tablet 40 MG PO (21:37)
[2021-11-26] MEDS: Budesonide Respules 0.5 MG/2 ML AMPUL.NEB. INHALATION (21:48)
[2021-11-26] MEDS: Ipratropium 0.5 MG/2.5 ML SOLUTION INHALATION (21:48)
[2021-11-26 22:05] LABS: Bedside Glucose 219 mg/dL (74-106)
[2021-11-27] VITALS (8 sets, daily range): BP systolic 136–153; BP diastolic 60–82; PULSE 90–106; RESP 16–20; TEMP 36.3–36.7; O2SAT 87–94
[2021-11-27] MEDS: Levothyroxine 88 MCG Tablet PO (04:48)
[2021-11-27 07:06] LABS: Bedside Glucose 189 mg/dL (74-106)
--- NOTE | 2021-11-27 07:50 | NURSING ---
CALLED [facility], TALKED TO JASON. ETA IS WITHIN THE HOUR
[2021-11-27 08:06] LABS: Bedside Glucose 179 mg/dL (74-106)
[2021-11-27] MEDS: Aspirin E.C. 81 MG Tablet PO (08:26)
[2021-11-27] MEDS: Budesonide Respules 0.5 MG/2 ML AMPUL.NEB. INHALATION (08:34)
[2021-11-27] MEDS: Ipratropium 0.5 MG/2.5 ML SOLUTION INHALATION (08:34)
--- NOTE | 2021-11-27 09:06 | NURSING ---
CALLED [facility], ETA IS ANOTHER 15 TO 20 MIN
--- NOTE | 2021-11-27 09:50 | ED.RN ---
PT TRANSFERRED TO [facility]. REPORT CALLED. [facility] COMFORTABLE WITH MANAGING OXYGEN TUBING
== END 2021-11-27 08:56 | disposition short-term general hospital (02) ==
PROVIDERS: Emergency Provider Student in an Organized Health Care Education/Training Program; PCP Family Medicine; Visit Provider Student in an Organized Health Care Education/Training Program
DX: R45.851 Suicidal ideations (principal); J44.9 Chronic obstructive pulmonary disease, unspecified; I11.0 Hypertensive heart disease with heart failure; I50.32 Chronic diastolic (congestive) heart failure; E11.42 Type 2 diabetes mellitus with diabetic polyneuropathy; Z79.4 Long term (current) use of insulin; E78.5 Hyperlipidemia, unspecified; R41.0 Disorientation, unspecified; I25.10 Atherosclerotic heart disease of native coronary artery without angina pectoris; R53.1 Weakness; Z87.891 Personal history of nicotine dependence; Z79.82 Long term (current) use of aspirin; Z79.899 Other long term (current) drug therapy
CPT/HCPCS: 36415; 80048; 80307; 81001; 81002; 82077; 82962; 85025; 87811; 93005; 94640; 99285

== ENCOUNTER 2021-12-07 10:44 | Emergency (ER) | payer MEDICARE, MEDICAID, SELFPAY ==
[2021-12-07 10:46] VITALS: BP 140/62; PULSE 77; RESP 16; TEMP 36.3; O2SAT 97; BMI 35.7
[2021-12-07 10:49] VITALS: BP 140/62; PULSE 77; RESP 16; TEMP 36.3; O2SAT 97
--- NOTE | 2021-12-07 11:00 | ED.VIS.LOWEX ---
HPI History of Present Illness Chief Complaint: Wound Narrative Narrative: 66-year-old female with history of neuropathy and chronic ulcers to the heels of her bilateral feet and chronic degenerative changes of the left great toe. The patient states she has had problems with her ulcerations and tenderness of the left foot status post amputation of left great toe for most of the summer. She states that Dr. No did surgery on the toe in September. Patient states that she was on antibiotics a couple of times but cannot name any of these. She states she was recently admitted to a psychiatric facility and [place]. While she was there she states Dr. No was following along on his computer and ordered her antibiotics while she was inpatient there. She does not recall what this is. She says she thinks he still taking him at her skilled nursing. Patient has a follow-up appointment with Dr. No on the she reports. She also sees Dr. Gonzales on the . Patient states that she was previously on oxycodone but states this makes her talk out of her mind. She denies fevers, chills or any systemic signs or symptoms. She states she has very bad pain in the bilateral heels and the left great toe. Patient states that she has not had any new trauma. She is taking Tylenol currently. [facility] Medical History Acute cervical myofascial strain Acute on chronic respiratory failure with hypoxemia Amputated toe of left foot Anemia Asthma Atherosclerotic heart disease of [place] coronary artery without angina pectoris Atrial fibrillation CAD (coronary artery disease) CHF (congestive heart failure) Chronic heart failure with preserved ejection fraction (HFpEF) Chronic heel ulcer Chronic respiratory failure with hypoxia, on home oxygen therapy Chronic ulcer of great toe of left foot Closed head injury Congestive heart failure (CHF) COPD (chronic obstructive pulmonary disease) Decubitus ulcer of dorsum of foot, stage 2 Decubitus ulcer of left heel, stage 2 Decubitus ulcer of left heel, stage 3 Decubitus ulcer, heel, left, unstageable Depression Diabetes mellitus with diabetic polyneuropathy Diabetes type 2, controlled Diabetic foot ulcers Diverticulitis Essential hypertension Former smoker History of amputation of left great toe History of non-ST elevation myocardial infarction (NSTEMI) (02/24/17) Hyperlipidemia Hypothyroid Myocardial infarct Non-rheumatic tricuspid valve insufficiency Nondisplaced fracture of distal phalanx of right great toe, initial encounter for closed fracture Nonrheumatic mitral (valve) insufficiency Obesity Obstructive sleep apnea On home O2 Renal insufficiency Secondary pulmonary arterial hypertension Type 2 diabetes mellitus Home Medications furosemide 80 mg tablet 80 mg PO DAILY water pill 09/02/20 [History Last Taken 10/14/21] levothyroxine 88 mcg tablet 88 mcg PO DAILY thyroid 09/02/20 [History Last Taken 10/14/21] aspirin 81 mg tablet,delayed release (Adult Aspirin Regimen) 81 mg PO DAILY heart 05/17/21 [History Last Taken 10/14/21 09:30] insulin detemir U-100 100 unit/mL (3 mL) subcutaneous pen 30 unit subcut QHS blood sugar 09/02/21 [History Last Taken 10/13/21] paroxetine HCl 30 mg tablet 40 mg PO QHS mental health 09/02/21 [History Last Taken 10/13/21] pantoprazole 40 mg tablet,delayed release 40 mg PO BID GERD 10/22/21 [History Last Taken Unknown] arginine 7 gram-glutamine 7 gram-calcium HMB 1.5 gram oral powder pack (Say) 1 ea PO BID wound healing 11/03/21 [History Last Taken Unknown] bisacodyl 10 mg rectal suppository 10 mg [place] DAILY PRN Constipation 11/03/21 [History Last Taken Unknown] collagenase clostridium histo. 250 unit/gram topical ointment (Santyl) 1 applic topical DAILY wound 11/03/21 [History Last Taken Unknown] menthol 0.44 %-zinc oxide 20.6 % topical ointment (Calmoseptine) 1 applic topical BID buttocks 11/03/21 [History Last Taken Unknown] nystatin 100,000 unit/gram topical powder 1 applic topical BID skin irritation 11/03/21 [History Last Taken Unknown] metoprolol succinate 50 mg tablet,extended release 24 hr 50 mg PO BID BP 11/08/21 [History Last Taken Unknown] acetaminophen 500 mg tablet 1,000 mg PO Q6H PRN PRN Pain Score 1-3 #0 tabs 11/22/21 [Rx Last Taken Unknown] atorvastatin 40 mg tablet 40 mg PO QHS #0 tabs 11/22/21 [Rx Last Taken Unknown] budesonide 0.5 mg/2 mL suspension for nebulization 0.5 mg (2 mL) inhalation BID.RT #0 mL 11/22/21 [Rx Last Taken Unknown] bupropion HCl 150 mg 24 hr tablet, extended release 150 mg PO DAILY #0 tabs 11/22/21 [Rx Last Taken Unknown] insulin lispro 100 unit/mL subcutaneous pen (Humalog KwikPen (U-100) Insulin) 10 unit (0.1 mL) subcut TIDAC #0 mL 11/22/21 [Rx Last Taken Unknown] ipratropium bromide 0.02 % solution for inhalation 0.5 mg (2.5 mL) inhalation Q6HWA.RT #0 mL 11/22/21 [Rx Last Taken Unknown] oxycodone 5 mg tablet 2.5 mg PO Q4H PRN Pain Score 4-10 3 days #9 tabs 11/22/21 [Rx Last Taken Unknown] sennosides 8.6 mg tablet (Kellie-nazario) 8.6 mg PO BID #0 tabs 11/22/21 [Rx Last Taken Unknown] cephalexin 500 mg capsule 500 mg PO Q6 #40 caps 12/07/21 [Rx Last Taken Unknown] tramadol 50 mg tablet 50 mg PO Q8H PRN pain #12 tabs 12/07/21 [Rx Last Taken Unknown] Allergy/AdvReac Type Severity Reaction Status Date / Time Sulfa (Sulfonamide Allergy Anaphylaxis Verified 11/22/21 10:13 Antibiotics) sulfur dioxide Allergy Anaphylaxis Verified 11/22/21 10:13 oxycodone AdvReac Other Verified 12/07/21 10:46 Family History Grandmother Diabetes Mother Heart disease Surgical History H/O right heart catheterization History of cataract surgery History of coronary artery stent placement (02/24/17) Tubal ligation status Social History household members: none housing: other details: [facility]. Smoking Status: Former smoker how long ago did patient quit smokin alcohol intake: former year quit: 1999 substance use type: does not use caffeine: Yes Type: carbonated beverages and tea ROS ROS ED Constitutional Constitutional ED: Denies chills or fever(s) Eyes Eyes: Denies change in vision ENT ENT ED: Denies rhinorrhea or sore throat Cardiovascular Cardiovascular: Denies chest pain or palpitations Respiratory/Chest Respiratory/Chest: Denies cough or dyspnea Gastrointestinal Gastrointestinal: Denies abdominal pain or constipation Genitourinary Genitourinary ED: Denies dysuria or hematuria Musculoskeletal Musculoskeletal: Reports other Details: Bilateral heel pain, left foot pain ; Denies arthralgias Neurologic Neurologic: Denies headache(s) or paresthesias Psychiatric Psychiatric: Denies anxiety, depression, suicidal ideation or suicidal thoughts EXAM Physical Exam Const Vital Signs: 12/07/21 10:46 12/07/21 10:49 12/07/21 11:49 Temperature 97.4 F L 97.4 F L 98.0 F Temperature Source Temporal Temporal Temporal Pulse Rate 77 77 79 Respiratory Rate 16 16 20 H Blood Pressure 140/62 H 140/62 H 138/55 H Blood Pressure Mean 88 88 82 Pulse Ox 97 97 100 Oxygen Delivery Method Room Air Room Air Room Air 12/07/21 12:49 12/07/21 13:35 12/07/21 14:56 Temperature 97.8 F 98.6 F 98.0 F Temperature Source Temporal Oral Oral Pulse Rate 89 89 85 Respiratory Rate 24 H 20 H 16 Blood Pressure 161/62 H 168/53 H 154/63 H Blood Pressure Mean 95 91 93 Pulse Ox 94 99 95 Oxygen Delivery Method Room Air Nasal Cannula Room Air Positive well nourished General Appearance ED: NAD HEENT Reports moist mucous membranes Negative for atraumatic Chest Wall inspection of chest normal Resp normal respiratory effort and clear to auscultation bilaterally Cardio regular rate and regular rhythm Extremity Extremity Narrative: Status post amputation of the left great toe. There is some drainage at this site which is slightly cloudy. There is mild erythema surrounding this area without lymphangitic streaking. There are 2 small stage II decubitus ulcers on the bilateral heels without any drainage. Neuro oriented x3 and CN's II-XII intact bilaterally Psych mental status grossly normal MDM MDM MDM Narrative Medical decision making narrative: Patient presenting for wound check. She status post amputation of the left great toe and had some drainage from the site and there is some mild erythema.. She also has some small decubitus ulcers on the heels bilaterally. She quit something for pain. She did report to me that oxycodone made her talk out of her head. She was given Ultram. Blood work is obtained and her CBC shows no leukocytosis with a white blood cell count of 7.7. Hemoglobin is stable at 10.9. Platelets normal 167. Creatinine slightly elevated 1.34 however patient has chronic kidney disease. She was given a liter of IV fluids. CRP normal at 2.90. ESR minimally elevated at 43. Glucose is elevated at 456 however patient does not have an anion gap. X-rays of the bilateral feet show no acute fractures or evidence of osteomyelitis on my interpretation. There is some soft tissue swelling which is noted. Radiologist noted that there was a foreign body which appeared to be over the foot on the right foot which is no longer present. This does not appear to be in the tissue. Wound culture was sent. Patient will be started on Keflex as appears she had done well with Keflex in the past for this. No evidence of MRSA in the last wound. She does have any systemic signs or symptoms. I will prescribe her some Ultram to help with her pain but I counseled her if she needed something further than that she needs to talk to her primary care provider on her appointment on the . Impression: 1. Cellulitis 2. Wound check 3. Hyperglycemia 4. Bilateral foot Lab Data Labs: Laboratory Results - last 24 hr 12/07/21 12/07/21 11:15 11:45 WBC 7.7 RBC 3.85 L Hgb 10.9 L Hct 35.2 L MCV 91.4 MCH 28.3 MCHC 31.0 L RDW Std Deviation 53.6 H RDW Coeff of Magen 16.0 H Plt Count 167 MPV 11.2 Immature Gran % (Auto) 0.100 Neut % (Auto) 66.9 Lymph % (Auto) 23.1 Warren % (Auto) 8.1 Eos % (Auto) 1.0 Baso % (Auto) 0.8 Absolute Neuts (auto) 5.1 Absolute Lymphs (auto) 1.78 Nucleated RBC % 0 ESR 43 H Sodium 137 Potassium 4.9 Chloride 103 Carbon Dioxide 28.0 Anion Gap 6 BUN 21 H Creatinine 1.34 H Estim Creat Clear Calc 37.66 Est GFR (MDRD) Af Amer 51 L Est GFR (MDRD) Non-Af 42 L BUN/Creatinine Ratio 15.7 Glucose 456 H* Calcium 9.5 C-React Prot Ext Range < 2.90 Radiography Diagnostic Testing: Clinical Impression(s) from Imaging Studies Foot X-Ray 12/07/21 11:03 IMPRESSION: Status post amputation of the great toe. Findings suggestive of ulceration in the soft tissues overlying the distal aspect of the first metatarsal. Electronically Signed: Butch Ling MD at 13:06 EDT , Foot X-Ray 12/07/21 11:35 IMPRESSION: Soft tissue swelling. Visible linear metallic foreign body in the subcutaneous tissue overlying the base of the metatarsals. Electronically Signed: Butch Ling MD at 12:33 EDT , Discharge Plan Triage Chief Complaint: Wound ED Provider: Reese Saez Dx/Rx/DC Orders Instructions: Diabetic Foot Press Injury Dc, ED Cellulitis Prescriptions: New cephalexin 500 mg capsule 500 mg PO Q6 Qty: 40 0RF tramadol 50 mg tablet 50 mg PO Q8H PRN (Reason: pain) Qty: 12 0RF No Action aspirin [Adult Aspirin Regimen] 81 mg tablet,delayed release (DR/EC) 81 mg PO DAILY levothyroxine 88 mcg Tablet 88 mcg PO DAILY furosemide 80 mg Tablet 80 mg PO DAILY Hold Instructions: Resume on 11/10/21. paroxetine HCl 30 mg tablet 40 mg PO QHS insulin detemir U-100 100 unit/mL (3 mL) insulin pen 30 unit SUBCUT QHS pantoprazole 40 mg tablet,delayed release (DR/EC) 40 mg PO BID menthol-zinc oxide [Calmoseptine] 0.44-20.6 % Ointment 1 applic TOPICAL BID bisacodyl 10 mg Suppository 10 mg [place] DAILY PRN (Reason: Constipation) nystatin 100,000 unit/gram Powder 1 applic TOPICAL BID Santyl 250 unit/gram Ointment 1 applic TOPICAL DAILY Say 7-7-1.5 gram Powder In Packet 1 ea PO BID metoprolol succinate 50 mg tablet extended release 24 hr 50 mg PO BID atorvastatin 40 mg Tablet 40 mg PO QHS Qty: 0 0RF sennosides [Kellie-nazario] 8.6 mg Tablet 8.6 mg PO BID Qty: 0 0RF acetaminophen 500 mg Tablet 1,000 mg PO Q6H PRN PRN (Reason: Pain Score 1-3) Qty: 0 0RF oxycodone 5 mg Tablet 2.5 mg PO Q4H PRN (Reason: Pain Score 4-10) 3 Days Qty: 9 0RF bupropion HCl 150 mg Tablet Extended Release 24 Hr 150 mg PO DAILY Qty: 0 0RF budesonide 0.5 mg/2 mL Suspension For Nebulization 0.5 mg inhalation BID.RT Qty: 0 0RF ipratropium bromide 0.02 % Solution 0.5 mg inhalation Q6HWA.RT Qty: 0 0RF insulin lispro [Humalog KwikPen Insulin] 100 unit/mL Insulin Pen 10 unit subcut TIDAC Qty: 0 0RF Primary Care Provider: Froy Gonzales Referrals: Noah No DPM [Med Staff - Active Staff] - Keep [facility]ocencia appointment Froy Gonzales MD [Primary Care Provider] - Disposition Disposition: Home, Self Care
--- NOTE | 2021-12-07 11:03 | RAD_ITS ---
STUDY: X-RAY - LEFT FOOT CLINICAL: Female, 66 years old. PAIN TECHNIQUE: 3 view(s) of the foot. COMPARISON: Comparison is made with prior study dated 10/21/2021. FINDINGS: There is an enthesophyte involving the posterior superior calcaneus at the site of insertion of the Achilles tendon. Plantar spur. Normal visualized subtalar, talonavicular, calcaneocuboid, tarsal and tarsometatarsal articulations. Normal metatarsi. The patient is status post amputation of the first toe. Soft tissue swelling overlying the first metatarsal head. Normal second through fifth metatarsophalangeal joints. Normal interphalangeal joints and phalanges of the lesser toes. There is evidence of an ulceration in the soft tissues overlying the distal aspect of the first metatarsal. Infection should be ruled out. RAD/Foot min 3 Views IMPRESSION: Status post amputation of the great toe. Findings suggestive of ulceration in the soft tissues overlying the distal aspect of the first metatarsal. Electronically Signed: Butch Ling MD at 13:06 EDT ,
--- NOTE | 2021-12-07 11:25 | NURSING ---
Attempted IV x2 without success. Chg RN notified- calling lab for draw at this time.
--- NOTE | 2021-12-07 11:35 | RAD_ITS ---
STUDY: X-RAY - RIGHT FOOT CLINICAL: Female, 66 years old. Pain TECHNIQUE: 3 view(s) of the foot. COMPARISON: None. FINDINGS: Calcaneal spurs. Normal visualized subtalar, talonavicular, calcaneocuboid, tarsal and tarsometatarsal articulations. There is demineralization of the metatarsi. 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 Normal tibial and fibular sesamoid bones. Normal interphalangeal joint of the great toe. Normal phalanges of the great toe. Normal second through fifth metatarsophalangeal joints. Normal interphalangeal joints and phalanges of the lesser toes. There is non-specific soft tissue swelling of the foot. Questionable foreign body suggestive of a needle overlying the proximal portion of the fourth and fifth metatarsals. RAD/Foot min 3 Views IMPRESSION: Soft tissue swelling. Visible linear metallic foreign body in the subcutaneous tissue overlying the base of the metatarsals. Electronically Signed: Butch Ling MD at 12:33 EDT ,
[2021-12-07 11:49] VITALS: BP 138/55; PULSE 79; RESP 20; TEMP 36.7; O2SAT 100
[2021-12-07 11:49] LABS: Erythrocyte Sedimentation Rate 43 mm/hr (0-30)
[2021-12-07 11:51] LABS: Absolute Lymphocyte Count 1.78 X10^3/uL (0.83-4.51); Absolute Neutrophil Count 5.1 X10^3/uL (2.0-7.7); Basophil# 0.06 X10^3/uL; Basophil% 0.8 % (0-1); Eosinophil# 0.08 X10^3/uL; Hematocrit 35.2 % (37-47); Hemoglobin 10.9 g/dL (12.0-15.0); Lymphocyte # 1.78 X10^3/ul (0.83-4.51); Lymphocyte % 23.1 % (19-41); Mean Corpuscular Hgb 28.3 pg (27.0-32.0); Mean Corpuscular Volume 91.4 fL (81-99); Mean Platelet Vol. 11.2 fl (6.2-12.0); Monocyte# 0.62 X10^3/uL; Monocyte% 8.1 % (0-10); NRBC Flagged by Analyzer 0 % (0-5); Neutrophil # 5.14 X10^3/uL (2.7-7.7); Neutrophil % 66.9 % (47-70); Platelet Count 167 K/mm3 (150-450); RBC Distribution Width SD 53.6 fl (35.1-43.9); Red Blood Count 3.85 M/mm3 (4.2-5.4); White Blood Count 7.7 K/mm3 (4.4-11.0)
[2021-12-07 12:44] LABS: Anion Gap 6 (5-15); BUN 21 mg/dL (7-18); BUN/Creat Ratio 15.7 RATIO (10-20); CRP < 2.90 mg/L (0.0-3.0); Calcium,Total 9.5 mg/dL (8.5-10.1); Chloride 103 mmol/L (98-107); Creatinine, Serum 1.34 mg/dL (0.55-1.02); EST Glomerular Filtration Rate 42 mL/min (>60); Est Glom Filt Rate - Afr Amer 51 mL/min (>60); Estimated Creatinine Clearance 37.66 ml/min; Glucose 456 mg/dL (74-106); Potassium 4.9 mmol/L (3.5-5.1); Sodium Level 137 mmol/L (136-145)
[2021-12-07 12:49] VITALS: BP 161/62; PULSE 89; RESP 24; TEMP 36.6; O2SAT 94
[2021-12-07 13:35] VITALS: BP 168/53; PULSE 89; RESP 20; TEMP 37; O2SAT 99
[2021-12-07] MEDS: traMADol 50 MG Tablet PO (14:55)
[2021-12-07 14:56] VITALS: BP 154/63; PULSE 85; RESP 16; TEMP 36.7; O2SAT 95
== END 2021-12-07 15:15 | disposition home or self-care (01) ==
PROVIDERS: Emergency Provider Student in an Organized Health Care Education/Training Program; PCP Family Medicine; Visit Provider Student in an Organized Health Care Education/Training Program
DX: L03.90 Cellulitis, unspecified (principal); L89.612 Pressure ulcer of right heel, stage 2; L89.622 Pressure ulcer of left heel, stage 2; Z89.412 Acquired absence of left great toe; J44.9 Chronic obstructive pulmonary disease, unspecified; I50.32 Chronic diastolic (congestive) heart failure; I13.0 Hypertensive heart and chronic kidney disease with heart failure and stage 1 through stage 4 chronic kidney disease, or unspecified chronic kidney disease; I27.21 Secondary pulmonary arterial hypertension; E11.65 Type 2 diabetes mellitus with hyperglycemia; E11.42 Type 2 diabetes mellitus with diabetic polyneuropathy; E11.22 Type 2 diabetes mellitus with diabetic chronic kidney disease; J96.11 Chronic respiratory failure with hypoxia; I48.91 Unspecified atrial fibrillation; Z79.4 Long term (current) use of insulin; N18.9 Chronic kidney disease, unspecified; I25.10 Atherosclerotic heart disease of native coronary artery without angina pectoris; E78.5 Hyperlipidemia, unspecified; M19.072 Primary osteoarthritis, left ankle and foot; E03.9 Hypothyroidism, unspecified; G47.33 Obstructive sleep apnea (adult) (pediatric); E66.9 Obesity, unspecified; I25.2 Old myocardial infarction; Z99.81 Dependence on supplemental oxygen; Z79.82 Long term (current) use of aspirin; Z79.899 Other long term (current) drug therapy; Z95.5 Presence of coronary angioplasty implant and graft; Z87.891 Personal history of nicotine dependence
CPT/HCPCS: 73630; 80048; 85025; 85652; 86140; 87070; 87075; 87077; 87186; 87205; 99285; A4216

== ENCOUNTER 2021-12-13 12:29 | Inpatient (IN) | payer MEDICARE, MEDICAID, SELFPAY ==
[2021-12-13] VITALS (11 sets, daily range): BP systolic 124–170; BP diastolic 57–82; PULSE 88–99; RESP 15–25; TEMP 36.5–37.2; O2SAT 92–100; BMI 36.4; BMI 36.3
--- NOTE | 2021-12-13 13:16 | RAD_ITS ---
STUDY: X-RAY - LEFT FOOT CLINICAL: Female, 66 years old. Chronic infection. TECHNIQUE: 3 view(s) of the foot. COMPARISON: Comparison is made with prior study dated 12/07/2021. FINDINGS: Plantar spurs. Normal visualized subtalar, talonavicular, calcaneocuboid, tarsal and tarsometatarsal articulations. Normal metatarsi. Once again, the patient is status post amputation of the great toe. There is evidence of an ulcerated lesion in the soft tissues overlying the distal portion of the first metatarsal. Mild degree of decreased density in the head of the first metatarsal. Early osteomyelitis should be ruled out. Normal second through fifth metatarsophalangeal joints. Normal interphalangeal joints and phalanges of the lesser toes. Soft tissue swelling. RAD/Foot min 3 Views IMPRESSION: Status post amputation of the great toe with evidence of overlying ulceration of the first metatarsal head and possible osteomyelitis of the distal portion of the first metatarsal. Calcaneal spurs. Electronically Signed: Butch Ling MD at 15:17 EDT ,
[2021-12-13 14:15] LABS: Erythrocyte Sedimentation Rate 82 mm/hr (0-30)
[2021-12-13 14:17] LABS: Absolute Lymphocyte Count 1.44 X10^3/uL (0.83-4.51); Absolute Neutrophil Count 5.2 X10^3/uL (2.0-7.7); Basophil# 0.06 X10^3/uL; Basophil% 0.8 % (0-1); Eosinophil# 0.11 X10^3/uL; Eosinophils% 1.5 % (0-5); Hematocrit 31.8 % (37-47); Hemoglobin 9.8 g/dL (12.0-15.0); Lymphocyte # 1.44 X10^3/ul (0.83-4.51); Lymphocyte % 19.4 % (19-41); Mean Corp Hgb Conc 30.8 g/dL (32-36); Mean Corpuscular Hgb 27.5 pg (27.0-32.0); Mean Corpuscular Volume 89.3 fL (81-99); Mean Platelet Vol. 11.1 fl (6.2-12.0); Monocyte# 0.61 X10^3/uL; Monocyte% 8.2 % (0-10); NRBC Flagged by Analyzer 0 % (0-5); Neutrophil # 5.15 X10^3/uL (2.7-7.7); Neutrophil % 69.4 % (47-70); Platelet Count 151 K/mm3 (150-450); RBC Distribution Width SD 52.4 fl (35.1-43.9); Red Blood Count 3.56 M/mm3 (4.2-5.4); White Blood Count 7.4 K/mm3 (4.4-11.0)
[2021-12-13 14:35] LABS: Anion Gap 5 (5-15); BUN 19 mg/dL (7-18); BUN/Creat Ratio 16.5 RATIO (10-20); CRP 4.01 mg/L (0.0-3.0); Calcium,Total 9.3 mg/dL (8.5-10.1); Chloride 104 mmol/L (98-107); Creatinine, Serum 1.15 mg/dL (0.55-1.02); EST Glomerular Filtration Rate 50 mL/min (>60); Est Glom Filt Rate - Afr Amer 61 mL/min (>60); Estimated Creatinine Clearance 43.89 ml/min; Glucose 416 mg/dL (74-106); Sodium Level 136 mmol/L (136-145)
--- NOTE | 2021-12-13 14:39 | EDS_ITS ---
HPI History of Present Illness Chief Complaint: Wound Detail of Chief Complaint: Left foot wound Narrative Narrative: Patient sent in from [facility] secondary to positive wound culture from left foot wound. Her left great toe amputated this past summer with Dr. No. I am told that because of transportation issues she was lost to good follow-up. She was seen in the ER recently secondary to her foot wound. Lab work was obtained on that occasion as well as wound cultures. Wound cultures have come back positive for Corynebacterium, Enterococcus, and yeast. Culture revealed sensitivities to gentamicin, linezolid, streptomycin, vancomycin. Damari or[place] practitioner caring for the patient now states she was advised that the patient has increased erythema on her leg and because she will require IV antibiotics sent her to the emergency room. [facility] Medical History Acute cervical myofascial strain Acute on chronic respiratory failure with hypoxemia Amputated toe of left foot Anemia Asthma Atherosclerotic heart disease of [place] coronary artery without angina pectoris Atrial fibrillation CAD (coronary artery disease) CHF (congestive heart failure) Chronic heart failure with preserved ejection fraction (HFpEF) Chronic heel ulcer Chronic respiratory failure with hypoxia, on home oxygen therapy Chronic ulcer of great toe of left foot Closed head injury Congestive heart failure (CHF) COPD (chronic obstructive pulmonary disease) Decubitus ulcer of dorsum of foot, stage 2 Decubitus ulcer of left heel, stage 2 Decubitus ulcer of left heel, stage 3 Decubitus ulcer, heel, left, unstageable Depression Diabetes mellitus with diabetic polyneuropathy Diabetes type 2, controlled Diabetic foot ulcers Diverticulitis Essential hypertension Former smoker History of amputation of left great toe History of non-ST elevation myocardial infarction (NSTEMI) (02/24/17) Hyperlipidemia Hypothyroid Myocardial infarct Non-rheumatic tricuspid valve insufficiency Nondisplaced fracture of distal phalanx of right great toe, initial encounter for closed fracture Nonrheumatic mitral (valve) insufficiency Obesity Obstructive sleep apnea On home O2 Renal insufficiency Secondary pulmonary arterial hypertension Type 2 diabetes mellitus Home Medications furosemide 80 mg tablet 80 mg PO DAILY water pill 09/02/20 [History Last Taken 12/13/21] aspirin 81 mg tablet,delayed release (Adult Aspirin Regimen) 81 mg PO DAILY heart 05/17/21 [History Last Taken 12/13/21] insulin detemir U-100 100 unit/mL (3 mL) subcutaneous pen (Levemir FlexTouch U- 100 Insulin) 35 unit subcut QHS blood sugar 09/02/21 [History Last Taken 12/12/21] pantoprazole 40 mg tablet,delayed release 40 mg PO BID GERD 10/22/21 [History Last Taken 12/13/21] metoprolol succinate 50 mg tablet,extended release 24 hr 50 mg PO BID BP 11/08/21 [History Last Taken 12/13/21] aripiprazole 10 mg tablet (Abilify) 10 mg PO QHS MOOD 12/13/21 [History Last Taken 12/12/21] atorvastatin 40 mg tablet 40 mg PO QHS CHOLESTEROL 12/13/21 [History Last Taken 12/12/21] dulaglutide 0.75 mg/0.5 mL subcutaneous pen injector (Trulicity) 0.75 mg subcut WE DM 12/13/21 [History Last Taken Unknown] gabapentin 100 mg capsule 200 mg PO TID NERVE PAIN 12/13/21 [History Last Taken 12/13/21] insulin lispro 100 unit/mL subcutaneous pen See Protocol subcut TIDCM 12/13/21 [History Last Taken 12/13/21] insulin lispro 100 unit/mL subcutaneous pen (Humalog KwikPen (U-100) Insulin) 2 unit subcut TIDAC DM 12/13/21 [History Last Taken 12/13/21] levothyroxine 100 mcg tablet (Synthroid) 100 mcg PO DAILY THYROID 12/13/21 [History Last Taken 12/13/21] mirtazapine 30 mg tablet 30 mg PO QHS SLEEP 12/13/21 [History Last Taken 12/12/21] montelukast 10 mg tablet 10 mg PO QHS ALLERGIES 12/13/21 [History Last Taken Unknown] potassium chloride 20 mEq tablet,extended release(part/cryst) 20 meq PO DAILY SUPPLEMENT 12/13/21 [History Last Taken 12/13/21] sennosides 8.6 mg-docusate sodium 50 mg tablet (Senna-S) 1 tab PO BID STOOL SOFTNER 12/13/21 [History Last Taken 12/13/21] trazodone 100 mg tablet 100 mg PO QHS SLEEP 12/13/21 [History Last Taken 12/12/21] Allergy/AdvReac Type Severity Reaction Status Date / Time Sulfa (Sulfonamide Allergy Anaphylaxis Verified 11/22/21 10:13 Antibiotics) sulfur dioxide Allergy Anaphylaxis Verified 11/22/21 10:13 oxycodone AdvReac Other Verified 12/13/21 12:48 Family History Grandmother Diabetes Mother Heart disease Surgical History H/O right heart catheterization History of cataract surgery History of coronary artery stent placement (02/24/17) Tubal ligation status Social History household members: none housing: other details: [facility]. Smoking Status: Former smoker how long ago did patient quit smokin alcohol intake: former year quit: 1999 substance use type: does not use caffeine: Yes Type: carbonated beverages and tea ROS ROS ED Constitutional Constitutional ED: Denies chills or fever(s) Eyes Eyes: Denies change in vision or discharge from eye(s) ENT ENT ED: Denies discharge from eye(s), rhinorrhea or sore throat Cardiovascular Cardiovascular: Denies chest pain or palpitations Respiratory/Chest Respiratory/Chest: Denies cough or dyspnea Gastrointestinal Gastrointestinal: Denies abdominal pain, nausea or vomiting Genitourinary Genitourinary ED: Denies dysuria Musculoskeletal Musculoskeletal: Reports extremity pain; Denies back pain Integumentary Reports other Details: Left foot wound at site of prior toe amputation Neurologic Neurologic: Denies headache(s) or weakness Allergic/Immunologic Allergic/Immunologic ED: Denies lip swelling or urticaria EXAM Physical Exam Const Vital Signs: 12/13/21 12:32 12/13/21 12:35 12/13/21 13:35 Temperature 98.0 F 98 F 98 F Temperature Source Temporal Oral Temporal Pulse Rate 92 89 89 Respiratory Rate 18 18 18 Blood Pressure 169/79 H 169/79 H 168/78 H Blood Pressure Mean 109 109 108 Pulse Ox 96 96 96 Oxygen Delivery Method Room Air Room Air Positive well nourished and well developed General Appearance ED: well developed HEENT Reports normocephalic and head/scalp atraumatic Eyes PERRL and EOMs intact bilaterally Neck supple Chest Wall inspection of chest normal and palpation of chest normal Resp normal respiratory effort and clear to auscultation bilaterally Cardio regular rate and regular rhythm GI normal to inspection, nondistended, normoactive bowel sounds Palpation: soft Extremity Extremity Narrative: Amputation site at the left first MTP joint with scab material and mild surrounding erythema. Serosanguineous fluid draining at this time. Mild erythema noted along the left daigle. Neuro oriented x3 Sensorium / Orientation: alert Psych mental status grossly normal Skin no rashes or lesions noted MDM MDM MDM Narrative Medical decision making narrative: Lab work obtained along with blood cultures. Left foot x-ray obtained. Based on her recent cultures she is given a dose of IV vancomycin. Lab Data Labs: Laboratory Results - last 24 hr 12/13/21 12/13/21 14:05 14:05 WBC 7.4 RBC 3.56 L Hgb 9.8 L Hct 31.8 L MCV 89.3 MCH 27.5 MCHC 30.8 L RDW Std Deviation 52.4 H RDW Coeff of Magen 16.0 H Plt Count 151 MPV 11.1 Immature Gran % (Auto) 0.700 Neut % (Auto) 69.4 Lymph % (Auto) 19.4 [place] % (Auto) 8.2 Eos % (Auto) 1.5 Baso % (Auto) 0.8 Absolute Neuts (auto) 5.2 Absolute Lymphs (auto) 1.44 Nucleated RBC % 0 ESR 82 H Sodium 136 Potassium 5.0 Chloride 104 Carbon Dioxide 27.0 Anion Gap 5 BUN 19 H Creatinine 1.15 H Estim Creat Clear Calc 43.89 Est GFR (MDRD) Af Amer 61 Est GFR (MDRD) Non-Af 50 L BUN/Creatinine Ratio 16.5 Glucose 416 H Calcium 9.3 C-React Prot Ext Range 4.01 H Treatment and Re-Evaluation Narrative: CBC is unremarkable. Hemoglobin 9.8. Chemistry studies unremarkable other than a glucose of 416. CRP is elevated at 401 and sed rate is 82. Left foot x-rays per my interpretation reveal no subcutaneous air or gas. No obvious bony erosion. I will speak with hospitalist regarding admission for IV antibiotics as well as podiatry consult. Discharge Plan Triage Chief Complaint: Wound ED Provider: Maya Hernandez Dx/Rx/DC Orders Clinical Impression: Diabetic foot infection Prescriptions: No Action aspirin [Adult Aspirin Regimen] 81 mg tablet,delayed release (/EC) 81 mg PO DAILY furosemide 80 mg Tablet 80 mg PO DAILY Hold Instructions: Resume on 11/10/21. Levemir FlexTouch U-100 Insuln 100 unit/mL (3 mL) insulin pen 35 unit SUBCUT QHS pantoprazole 40 mg tablet,delayed release (DR/EC) 40 mg PO BID metoprolol succinate 50 mg tablet extended release 24 hr 50 mg PO BID sennosides-docusate sodium [Senna-S] 8.6-50 mg Tablet 1 tab PO BID levothyroxine [Synthroid] 100 mcg tablet 100 mcg PO DAILY Label Comments: 1 TABLET BY MOUTH EVERYAMORNING @6AM/ NURSE TO REORDER potassium chloride 20 mEq tablet,ER particles/crystals 20 meq PO DAILY Label Comments: 1 TABLET BY MOUTH DAILY /INURSE TO REORDER trazodone 100 mg tablet 100 mg PO QHS Label Comments: 1 TABLET BY MOUTH ATIBEDTIME / NURSE TO REORDER mirtazapine 30 mg tablet 30 mg PO QHS Label Comments: 1 TABLET BY MOUTH ATIBEDTIME / NURSE TO REORDER montelukast 10 mg tablet 10 mg PO QHS Label Comments: 1 TABLET BY MOUTH ATSBEDTIME / NURSE TO=REORDER;3D gabapentin 100 mg capsule 200 mg PO TID Label Comments: 2 CAPSULES (200MG) BYAMOUTH THREE TIMES A DAY/ NURSE TO REORDER insulin lispro 100 unit/mL insulin pen See Protocol SUBCUT TIDCM Protocol: 6. Sliding Scale Insulin Custom Condition: mg/dl range Dose/Route: Number of Units Condition: 151-200 Dose/Route: 2 Condition: 201-250 Dose/Route: 4 Condition: 251-300 Dose/Route: 6 Condition: 301-350 Dose/Route: 8 Condition: 351-400 Dose/Route: 10 Instruction: NOTIFY Protocol Text: Custom Sliding Scale Label Comments: 2 UNITS SUB-Q BEFORE(MEALS PLUS SLIDING SCALE 0-150=0 UNITS SUB-Q; 151- 200=2U; 201-250=4U; 251-300=6U; 301-350=8U; 351-400=10U AND NOTIFY aripiprazole [Abilify] 10 mg tablet 10 mg PO QHS Label Comments: 1 TABLET BY MOUTH ATIBEDTIME / NURSE TO REORDER Trulicity 0.75 mg/0.5 mL pen injector 0.75 mg SUBCUT WE atorvastatin 40 mg tablet 40 mg PO QHS insulin lispro [Humalog KwikPen Insulin] 100 unit/mL insulin pen 2 unit subcut TIDAC Primary Care Provider: Geovanna Mott SOFTWARE TEST ANALYST Referrals: Geovanna Mott SOFTWARE TEST ANALYST, SOFTWARE TEST ANALYST-C [Primary Care Provider] - Disposition Disposition: Acute Care Hospital [facility]
--- NOTE | 2021-12-13 15:12 | NURSING ---
MED SURG JAY DIABETIC LEFT FOOT WOUND
--- NOTE | 2021-12-13 17:11 | PCM.HP.STD ---
[facility] - General General Date of Admission: 12/13/21 Date of Service: 12/13/21 Chief Complaint: Nonhealing left foot wound for 3 to 4 months. [facility] Narrative SONA WILSON, is a 66 F with history of diabetes mellitus type 2 and multiple other comorbidities as listed below came to ED for nonhealing left foot ulcer for 3 to 4 months. She had dry gangrene left hallux, nonhealing chronic ulceration of left dorsomedial hallux and nondisplaced transverse fracture of distal phalanx left hallux. She had left hallux amputation on 10/21/2021 by high lift driver, Dr. Noah No. After that she was discharged to TCU from there she went home but ulcer never healed. She follows in wound center. Today she was sent from [facility] secondary to positive wound culture from left foot wound on 12/07 growing Enterococcus faecalis, corynebacterium and yeast. It is sensitive to gentamicin, linezolid and vancomycin streptomycin and patient started on vancomycin in the ED. Patient also has chronic erythema and swelling of both lower legs and he states she has history of cellulitis. Besides that there are 2 scabbed healing ulcer over plantar surface of left heel and posterior of left heel. She also has 1 healing scab ulcer on right heel. She denies systemic symptoms including fever, headache, nausea, vomiting. Patient is further admitted. [facility] Medical History (Updated 12/13/21 @ 17:[address] Nagi Ayala MD) Acute cervical myofascial strain Acute on chronic respiratory failure with hypoxemia Amputated toe of left foot Anemia Asthma Atherosclerotic heart disease of [place] coronary artery without angina pectoris Atrial fibrillation CAD (coronary artery disease) CHF (congestive heart failure) Chronic heart failure with preserved ejection fraction (HFpEF) Chronic heel ulcer Chronic respiratory failure with hypoxia, on home oxygen therapy Chronic ulcer of great toe of left foot Closed head injury Congestive heart failure (CHF) COPD (chronic obstructive pulmonary disease) Current use of insulin Decubitus ulcer of dorsum of foot, stage 2 Decubitus ulcer of left heel, stage 2 Decubitus ulcer of left heel, stage 3 Decubitus ulcer, heel, left, unstageable Depression Diabetes mellitus with diabetic polyneuropathy Diabetes type 2, controlled Diabetic foot ulcers Diverticulitis Essential hypertension Former smoker History of amputation of left great toe History of non-ST elevation myocardial infarction (NSTEMI) (02/24/17) Hyperlipidemia Hypothyroid Myocardial infarct Non-rheumatic tricuspid valve insufficiency Nondisplaced fracture of distal phalanx of right great toe, initial encounter for closed fracture Nonrheumatic mitral (valve) insufficiency Obesity Obstructive sleep apnea On home O2 Renal insufficiency Secondary pulmonary arterial hypertension Type 2 diabetes mellitus Home Medications furosemide 80 mg tablet 80 mg PO DAILY water pill 09/02/20 [History Last Taken 12/13/21] aspirin 81 mg tablet,delayed release (Adult Aspirin Regimen) 81 mg PO DAILY heart 05/17/21 [History Last Taken 12/13/21] insulin detemir U-100 100 unit/mL (3 mL) subcutaneous pen (Levemir FlexTouch U-100 Insulin) 35 unit subcut QHS blood sugar 09/02/21 [History Last Taken 12/12/21] pantoprazole 40 mg tablet,delayed release 40 mg PO BID GERD 10/22/21 [History Last Taken 12/13/21] metoprolol succinate 50 mg tablet,extended release 24 hr 50 mg PO BID BP 11/08/21 [History Last Taken 12/13/21] aripiprazole 10 mg tablet (Abilify) 10 mg PO QHS MOOD 12/13/21 [History Last Taken 12/12/21] atorvastatin 40 mg tablet 40 mg PO QHS CHOLESTEROL 12/13/21 [History Last Taken 12/12/21] dulaglutide 0.75 mg/0.5 mL subcutaneous pen injector (Trulicity) 0.75 mg subcut WE DM 12/13/21 [History Last Taken Unknown] gabapentin 100 mg capsule 200 mg PO TID NERVE PAIN 12/13/21 [History Last Taken 12/13/21] insulin lispro 100 unit/mL subcutaneous pen See Protocol subcut TIDCM 12/13/21 [History Last Taken 12/13/21] insulin lispro 100 unit/mL subcutaneous pen (Humalog KwikPen (U-100) Insulin) 2 unit subcut TIDAC DM 12/13/21 [History Last Taken 12/13/21] levothyroxine 100 mcg tablet (Synthroid) 100 mcg PO DAILY THYROID 12/13/21 [History Last Taken 12/13/21] mirtazapine 30 mg tablet 30 mg PO QHS SLEEP 12/13/21 [History Last Taken 12/12/21] montelukast 10 mg tablet 10 mg PO QHS ALLERGIES 12/13/21 [History Last Taken Unknown] potassium chloride 20 mEq tablet,extended release(part/cryst) 20 meq PO DAILY SUPPLEMENT 12/13/21 [History Last Taken 12/13/21] sennosides 8.6 mg-docusate sodium 50 mg tablet (Senna-S) 1 tab PO BID STOOL SOFTNER 12/13/21 [History Last Taken 12/13/21] trazodone 100 mg tablet 100 mg PO QHS SLEEP 12/13/21 [History Last Taken 12/12/21] Allergy/AdvReac Type Severity Reaction Status Date / Time doxycycline Allergy NEEDS Verified 12/13/21 16:30 FOLLOW-UP latex Allergy NEEDS Verified 12/13/21 16:30 FOLLOW-UP Sulfa (Sulfonamide Allergy Anaphylaxis Verified 11/22/21 10:13 Antibiotics) sulfur dioxide Allergy Anaphylaxis Verified 11/22/21 10:13 atorvastatin AdvReac Other Verified 12/13/21 16:30 oxycodone AdvReac Other Verified 12/13/21 12:48 Family History Grandmother Diabetes Mother Heart disease Surgical History (Updated 12/13/21 @ 16:36 by Fatuma Grider) H/O right heart catheterization History of cataract surgery History of coronary artery stent placement (02/24/17) History of heart artery stent Tubal ligation status Social History household members: none housing: other details: [facility]. Smoking Status: Former smoker how long ago did patient quit smokin alcohol intake: former year quit: 1999 substance use type: does not use caffeine: Yes Type: carbonated beverages and tea ROS ROS Narrative Constitutional: Reports fatigue and weakness. HEENT: Reports systems reviewed and no addt'l complaints, except as documented Respiratory/Chest: Denies chest pain, shortness of breath at rest or with exertion CVS:peripheral artery disease. History of heart failure. Gastrointestinal: Denies coffee ground emesis, hematemesis or vomiting Genitourinary: Denies burning urination or new urinary tract symptoms Musculoskeletal: Reports joint pain and limited range of motion of bilateral feet Neurologic: Denies seizure-like activity. No focal weakness. Peripheral neuropathy of feet Psychiatric: History of anxiety and depression. Was admitted in [place] about a month ago for history of suicidal ideation. She stated she wanted to get away of herself denies suicidal attempt. Multiple antipsychotic medications skin: No ulcer. No rash Endocrinology: Reports systems reviewed and no addt'l complaints, except as documented Hematologic/Lymphatic: Reports systems reviewed and no addt'l complaints, except as documented Rest 14 ROS are negative except as mentioned in HPI Vital Signs Vital Signs Vital Signs: 12/13/21 12:32 12/13/21 12:35 12/13/21 13:35 Temperature 98.0 F 98 F 98 F Temperature Source Temporal Oral Temporal Pulse Rate 92 89 89 Respiratory Rate 18 18 18 Blood Pressure 169/79 H 169/79 H 168/78 H Blood Pressure Mean 109 109 108 Pulse Ox 96 96 96 Oxygen Delivery Method Room Air Room Air 12/13/21 14:00 12/13/21 14:00 12/13/21 15:00 Temperature 98 F 98 F 97.7 F L Temperature Source Temporal Temporal Temporal Pulse Rate 88 98 92 Respiratory Rate 18 21 H 25 H Blood Pressure 164/72 H 170/74 H 133/74 H Blood Pressure Mean 102 106 93 Pulse Ox 96 95 92 Oxygen Delivery Method Room Air Room Air 12/13/21 14:30 12/13/21 15:16 12/13/21 16:30 Temperature 97.7 F L 98.0 F Temperature Source Temporal Oral Pulse Rate 97 99 97 Respiratory Rate 15 16 18 Blood Pressure 161/82 H 124/75 H 154/57 H Blood Pressure Mean 108 91 89 Pulse Ox 98 100 98 Oxygen Delivery Method Room Air Room Air Room Air Weight Weight: 221 lb 9.033 oz Body Mass Index (BMI) 36.3 Physical Exam Narrative Physical exam General: Alert, Oriented x3, Cooperative HEENT: Atraumatic, PERRLA, EOMI, Normocephalic Oral: No Gingival or Mucosal Lesions/ Ulcerations Neck: Supple, No JVD, Negative Carotid Bruits Lungs: Air entry diminished in bilateral lung bases. No crepitation/rhonchi Cardiovascular: Regular rate, Regular Rhythm, Normal S1, Normal S2, grade 3/6 systolic murmur over cardiac apex and LLSB Abdomen: Bowel Sounds Present, Soft, Non Tender, Non-Distended : No renal angle tenderness. No suprapubic tenderness. Extremities: No edema, Capillary Refill Less than 3 Seconds Skin: Left nonhealing amputation ulcer/wound of great toe. 2 scabbed healed ulcer on heel of left foot and one scabbed dry ulcer over right heel. Bilateral lower leg redness and subcutaneous edema. No acute tenderness. Musculoskeletal: ROM restricted over bilateral feet and knee joints. Muscle strength 4/5 at knee and hip joints. Neurological: Cranial nerves II-XII grossly intact, DTR 2+/4, decreased sensation over bilateral feet. Psych/Mental Status: Flat affect, denies suicidal ideation or attempt. Results Lab / Micro Data Result Diagrams: 12/13/21 14:05 12/13/21 14:05 Labs: Laboratory Results - last 24 hr 12/13/21 14:05: WBC 7.4, RBC 3.56 L, Hgb 9.8 L, Hct 31.8 L, MCV 89.3, MCH 27.5, MCHC 30.8 L, RDW Std Deviation 52.4 H, RDW Coeff of Magen 16.0 H, Plt Count 151, MPV 11.1, Immature Gran % (Auto) 0.700, Neut % (Auto) 69.4, Lymph % (Auto) 19.4, [place] % (Auto) 8.2, Eos % (Auto) 1.5, Baso % (Auto) 0.8, Absolute Neuts (auto) 5.2, Absolute Lymphs (auto) 1.44, Nucleated RBC % 0, ESR 82 H 12/13/21 14:05: Sodium 136, Potassium 5.0, Chloride 104, Carbon Dioxide 27.0, Anion Gap 5, BUN 19 H, Creatinine 1.15 H, Estim Creat Clear Calc 43.89, Est GFR (MDRD) Af Amer 61, Est GFR (MDRD) Non-Af 50 L, BUN/Creatinine Ratio 16.5, Glucose 416 H, Calcium 9.3, C-React Prot Ext Range 4.01 H Radiology Impression Foot X-Ray 12/13/21 13:16 IMPRESSION: Status post amputation of the great toe with evidence of overlying ulceration of the first metatarsal head and possible osteomyelitis of the distal portion of the first metatarsal. Calcaneal spurs. Electronically Signed: Butch Ling MD at 15:17 EDT , Assessment & Plan Assessment/Plan (1) Foot ulcer, left: PLAN: Plan This is 66-year-old female is being admitted for positive wound culture of 12/07 of nonhealing left foot ulcer 1. Left foot nonhealing ulcer after amputation of left great toe complicated with diabetic neuropathy and uncontrolled hyperglycemia and peripheral artery disease. Patient is being admitted to [facility] floor. Patient is empirically started on IV vancomycin and ceftriaxone. Wound culture of 12/07 reviewed, growing Enterococcus faecalis, corynebacterium stratum and yeast. Loom Cleaner and ID are consulted. Left foot x-ray individually reviewed and shows evidence of overlying ulceration first metatarsal head and possible osteomyelitis. MRI of left foot ordered. CRP and sed rate are elevated. Prealbumin ordered. Paid Search Specialist consult and wound care consult. Patient was last admitted in October 2021. Last lower extremity arterial study on September 2021 reported monophasic and biphasic Doppler waveforms at ankle level on right. Biphasic/absent waveform at left ankle level. Resting MARY supranormal bilaterally. 2. Coronary artery disease, chronic HFpEF, history of paroxysmal SVT/P A. fib with chronic hypoxic respiratory failure: Patient had echo 10/15/2021 reported EF 55% moderate MR, moderate TR. Twelve-lead EKG ordered. 3. Chronic iron deficiency anemia with recent GI bleed-patient had recent colonoscopy without evidence of bleeding, poor prep.? EGD with esophageal plaques consistent with candidiasis, nonbleeding gastric ulcer which was biopsied.? Home dose of PPI twice daily continued. H&H 9.8/31%. Platelet count 151,000. 4. Type 2 diabetes mellitus with uncontrolled hyperglycemia-A1c ordered for tomorrow a.m. Accu-Cheks with sliding scale insulin. Home dose of Lantus insulin continued. Humalog insulin increased to 10 units 3 times daily AC. Continue home insulin regimen. 5. Hypothyroidism-continue Synthroid regimen. TSH ordered for tomorrow a.m. 6. CKD stage IIIb: Patient BUN/creatinine 19/1.15. Estimated creatinine clearance 43 mill per minute. 7. Hypertension: Blood pressure is elevated in ED. Home dose of lisinopril continued. Most recent 154/57. 8. Other comorbidities include COPD, dyslipidemia, anxiety and depression on multiple antipsychotic medications. Patient was admitted in psychiatric hospital month ago in [place]. Had suicidal ideation. Currently denies suicidal ideation or suicidal attempt. DVT prophylaxis: Heparin 5000 subcutaneous 2 times daily. High risk of bleeding and anemia in view of recent GI bleed on PPI twice daily. Bilateral SCDs Living will/advanced directive/end of life care: Patient does have living will or advanced directive. There is CODE STATUS report signed by PCP in the patient's chart which states DNR CC. Patient is stated she wanted DNR CC arrest and okay with oxygen mask or BiPAP/CPAP if needed. After discussion of benefits/risks procedures involved with full code, DNR CC arrest and DNR CC, the patient opted for DNRCC arrest no intubation Patient doesn't want artificial life support including intubation, tube feed, ventilator and/chest compression, central venous catheter, vasopressor and DC shock if needed Total time spent in [id number] encounter in discussion of advanced directive 16 minutes. Laboratory Results 12/13/21 14:05: WBC 7.4, RBC 3.56 L, Hgb 9.8 L, Hct 31.8 L, MCV 89.3, MCH 27.5, MCHC 30.8 L, RDW Std Deviation 52.4 H, RDW Coeff of Magen 16.0 H, Plt Count 151, MPV 11.1, Immature Gran % (Auto) 0.700, Neut % (Auto) 69.4, Lymph % (Auto) 19.4, [place] % (Auto) 8.2, Eos % (Auto) 1.5, Baso % (Auto) 0.8, Absolute Neuts (auto) 5.2, Absolute Lymphs (auto) 1.44, Nucleated RBC % 0, ESR 82 H 12/13/21 14:05: Sodium 136, Potassium 5.0, Chloride 104, Carbon Dioxide 27.0, Anion Gap 5, BUN 19 H, Creatinine 1.15 H, Estim Creat Clear Calc 43.89, Est GFR (MDRD) Af Amer 61, Est GFR (MDRD) Non-Af 50 L, BUN/Creatinine Ratio 16.5, Glucose 416 H, Calcium 9.3, C-React Prot Ext Range 4.01 H Clinical Impression(s) from Imaging Studies Foot X-Ray 12/13/21 13:16 IMPRESSION: Status post amputation of the great toe with evidence of overlying ulceration of the first metatarsal head and possible osteomyelitis of the distal portion of the first metatarsal. Calcaneal spurs. Electronically Signed: Butch Ling MD at 15:17 EDT , Charges/Coding Visit Charges Inpatient E&M: 45291 Init Hosp L3 Procedures Hospitalists Procedures: 62432 Advncd Care Plan 30 Min
[2021-12-13] MEDS: Insulin Lispro 100 UNIT/ML INSULN.PEN SC ×2 (17:44→22:08)
[2021-12-13] MEDS: Gabapentin 100 MG Capsule 200 MG PO ×2 (17:44→22:00)
[2021-12-13] MEDS: 0.9% Normal Saline 1,000 ML 75 ML IV (17:53)
[2021-12-13 18:06] LABS: Bedside Glucose 313 mg/dL (74-106)
[2021-12-13 19:12] LABS: CRP 4.34 mg/L (0.0-3.0); Prealbumin 15.7 mg/dL (20.0-40.0)
[2021-12-13] MEDS: Acetaminophen 325 MG Tablet 650 MG PO (19:44)
--- NOTE | 2021-12-13 20:34 | PCM.RX.CS ---
Consult Pharmacy has been consulted to manage selected antiobiotic: Vancomycin Type of Consult: New start Suspected Infection: Skin/Soft tissue Labs: Sodium 136 mmol/L (136-145) 12/13/21 14:05 Potassium 5.0 mmol/L (3.5-5.1) 12/13/21 14:05 Chloride 104 mmol/L (98-107) 12/13/21 14:05 Carbon Dioxide 27.0 mmol/L (21.0-32.0) 12/13/21 14:05 Anion Gap 5 (5-15) 12/13/21 14:05 BUN 19 mg/dL (7-18) H 12/13/21 14:05 Creatinine 1.15 mg/dL (0.55-1.02) H 12/13/21 14:05 Est GFR (MDRD) Af Amer 61 mL/min (>60) 12/13/21 14:05 Est GFR (MDRD) Non-Af 50 mL/min (>60) L 12/13/21 14:05 BUN/Creatinine Ratio 16.5 RATIO (10-20) 12/13/21 14:05 Glucose 416 mg/dL (74-106) H 12/13/21 14:05 Goal Trough: 15-20 mcg/mL Pharmacy Plan for Drug Dosing: NEW START IV VANCOMYCIN Consulting Physician: Dr. Ayala Indication: Foot Infection Goal Trough: 15-20 SrCr: 1.15 CrCl: 57.8mls/min (using an adjusted body weight of 75kg) Comments: pt received a 1500mg x1 dose of Vancomycin in the ED on 12/13/21 at 1432 Vancomycin Dose: looking at the pts past Vancomycin doses, pt has been dosed at 1000mg q24h. recommend starting pt at 1000mg q24h starting 12/14/21 at 1400. trough before the 3rd dose. Pending Level: 12/15/21 at 1330 Pharmacy Service will continue to monitor and adjust dosing as required. Follow-Up Labs: Trough Vancomycin - 12/15/21 at 1330
[2021-12-13 21:12] LABS: M R Staph aureus DNA By PCR Negative (Negative); Staph aureus DNA By PCR NEGATIVE (Negative)
[2021-12-13 21:13] LABS: Probe Check PASS; Specimen Processing Control PASS
[2021-12-13] MEDS: traZODone 100 MG Tablet PO (22:00)
[2021-12-13] MEDS: Atorvastatin Calcium 40 MG Tablet PO (22:00)
[2021-12-13] MEDS: Heparin Injection (Vial) 5,000 UNIT/ML VIAL 5000 UNIT SC (22:00)
[2021-12-13] MEDS: ARIPiprazole 10 MG Tablet PO ×2 (22:00→22:01)
[2021-12-13] MEDS: Montelukast 10 MG Tablet PO (22:00)
[2021-12-13] MEDS: Senna/Docusate Sodium 1 Tablet PO (22:00)
[2021-12-13] MEDS: Pantoprazole Sodium 40 MG Tablet PO (22:00)
[2021-12-13] MEDS: Metoprolol(XL)Succ 50 MG Tablet PO (22:01)
[2021-12-13] MEDS: Insulin Glargine-YFGN 100 UNIT/ML Pen 35 UNIT SC (22:07)
[2021-12-14] VITALS (8 sets, daily range): BP systolic 140–156; BP diastolic 55–80; PULSE 87–98; RESP 16–20; TEMP 36.7–36.8; O2SAT 93–100
[2021-12-14 00:16] LABS: Bedside Glucose 359 mg/dL (74-106)
[2021-12-14] MEDS: Gabapentin 100 MG Capsule 200 MG PO ×3 (05:39→22:07)
[2021-12-14] MEDS: Levothyroxine 100 MCG Tablet PO (05:39)
--- NOTE | 2021-12-14 05:40 | EKG12_ITS ---
Test Reason : AM EKG Blood Pressure : / mmHG Vent. Rate : 088 BPM Atrial Rate : 088 BPM P-R Int : 184 ms QRS Dur : 086 ms QT Int : 364 ms P-R-T Axes : 070 009 043 degrees QTc Int : 440 ms Normal sinus rhythm Cannot rule out Anterior infarct , age undetermined Abnormal ECG Confirmed by HENRIETTA ROSS, [place] ([id number]), editor department JASON PEREIRA ([id number]) on 12/15/2021 12:47:47 PM Referred By: Confirmed By:MONTANA SHRESTHA MD
--- NOTE | 2021-12-14 05:55 | MRI_ITS ---
STUDY: MRI LEFT FOREFOOT WITHOUT CONTRAST REASON FOR EXAM: Female, 66 years old. left foot ostemyelitis -- PT REFUSED CONTRAST TECHNIQUE: Standardized fat and water weighted pulse sequences were obtained in all 3 orthogonal planes. COMPARISON: X-ray 12/13/2021 FINDINGS: Status post amputation of the first digit with a deep ulcer extending to the distal cortical surface of the first metatarsal bone. Some surrounding soft tissue swelling consistent with cellulitis. No loculated fluid collection to suggest abscess. Cortical irregularity of the head of the first metatarsal bone consistent with osteomyelitis. Marrow edema of the head and neck of the first metatarsal bone consistent with cortical osteitis. Normal tibial and fibular sesamoids, with normal sesamoids-first metatarsal articulations. Normal medial and lateral heads of the flexor hallucis brevis tendons. Normal flexor and extensor hallucis longus tendons. Normal second through fifth metatarsophalangeal (MTP) joints. Normal interphalangeal joints of the second through fifth toes. Normal proximal, middle and distal phalanges of the second through fifth toes. Normal first through fourth intermetatarsal spaces. Normal flexor and extensor tendons of the second through fifth toes. Normal visualized metatarsi. Normal intrinsic muscles of the forefoot. There is no demonstrated soft tissue abnormality. MRI/Lower Ext/No Jt/w/o IMPRESSION: Status post amputation of the first digit with cellulitis at the site with a deep ulcer extending to the dorsal distal cortex of the first metatarsal bone with cortical osteitis and osteomyelitis of the head and neck of the first metatarsal bone. Electronically Signed: Gil Bolton MD at 10:51 EDT ,
[2021-12-14 07:05] LABS: Absolute Lymphocyte Count 1.22 X10^3/uL (0.83-4.51); Absolute Neutrophil Count 5.6 X10^3/uL (2.0-7.7); Basophil# 0.05 X10^3/uL; Basophil% 0.7 % (0-1); Eosinophil# 0.14 X10^3/uL; Eosinophils% 1.8 % (0-5); Hematocrit 31.5 % (37-47); Hemoglobin 9.9 g/dL (12.0-15.0); Lymphocyte # 1.22 X10^3/ul (0.83-4.51); Lymphocyte % 16.1 % (19-41); Mean Corp Hgb Conc 31.4 g/dL (32-36); Mean Corpuscular Hgb 27.9 pg (27.0-32.0); Mean Corpuscular Volume 88.7 fL (81-99); Mean Platelet Vol. 10.7 fl (6.2-12.0); Monocyte% 6.6 % (0-10); NRBC Flagged by Analyzer 0 % (0-5); Neutrophil # 5.64 X10^3/uL (2.7-7.7); Neutrophil % 74.4 % (47-70); Platelet Count 146 K/mm3 (150-450); RBC Distribution Width CV 16.2 % (11.6-14.6); RBC Distribution Width SD 53.3 fl (35.1-43.9); Red Blood Count 3.55 M/mm3 (4.2-5.4); White Blood Count 7.6 K/mm3 (4.4-11.0)
[2021-12-14] MEDS: Aspirin E.C. 81 MG Tablet PO (08:16)
[2021-12-14] MEDS: Insulin Lispro 100 UNIT/ML INSULN.PEN 10 UNIT SC ×3 (08:17→16:25)
[2021-12-14] MEDS: Insulin Lispro 100 UNIT/ML INSULN.PEN SC ×4 (08:17→22:05)
[2021-12-14] MEDS: Glucerna Shake 120 ML LIQUID PO ×2 (08:19→14:17)
--- NOTE | 2021-12-14 08:50 | WOUNDNOTE ---
wound photo: left foot
--- NOTE | 2021-12-14 08:50 | WOUNDNOTE ---
skin photo: bilateral lower legs
[2021-12-14 08:51] LABS: Bedside Glucose 190 mg/dL (74-106)
--- NOTE | 2021-12-14 08:51 | WOUNDNOTE ---
wound photo: right heel
--- NOTE | 2021-12-14 08:51 | WOUNDNOTE ---
wound photo: left heel
--- NOTE | 2021-12-14 08:52 | WOUNDNOTE ---
Pt states she was sent to the hospital for kidney function. pt had been in TCU and was discharged to [facility] on11/24/21. Pt apparently stated she was suicidal and was sent into the ED. Crisis saw patient on 11/26/21 and patient states she was sent to a psychiatric facility. According to the notes, patient was sent to [facility]. this nurse is unsure what this stands for. Pt was then back in the ED on 12/07/21 and was sent home. Pt states that friends have been helping her at home. states she will not return to [facility]. States her plan is to return home from the hospital. Awaiting MRI and Dr No consult. Pt states that Dr No is probably mad because I couldn't follow up. see wound documentation and wound photos. pt denies further needs at this time.
[2021-12-14 08:55] LABS: Hemoglobin A1c 7.2 % (3.8-5.6)
[2021-12-14 08:59] LABS: Anion Gap 6 (5-15); BUN 13 mg/dL (7-18); BUN/Creat Ratio 14.1 RATIO (10-20); Calcium,Total 9.4 mg/dL (8.5-10.1); Chloride 108 mmol/L (98-107); Creatinine, Serum 0.92 mg/dL (0.55-1.02); EST Glomerular Filtration Rate 65 mL/min (>60); Est Glom Filt Rate - Afr Amer 79 mL/min (>60); Estimated Creatinine Clearance 54.86 ml/min; Glucose 210 mg/dL (74-106); Phosphorus 2.8 mg/dL (2.5-4.9); Sodium Level 141 mmol/L (136-145); Thyroid Stim Hormone (TSH) 5.08 uIU/mL (0.358-3.74)
[2021-12-14] MEDS: Acetaminophen 325 MG Tablet 650 MG PO ×2 (10:55→20:08)
[2021-12-14] MEDS: Nystatin Powder 15gm Bottle 1 APPLIC TOPICAL ×3 (10:55→22:06)
[2021-12-14] MEDS: 0.9% Saline Lock 10 ML Syringe IV ×2 (10:56→15:48)
[2021-12-14] MEDS: Heparin Injection (Vial) 5,000 UNIT/ML VIAL 5000 UNIT SC ×2 (10:56→22:04)
[2021-12-14] MEDS: Senna/Docusate Sodium 1 Tablet PO ×2 (10:57→22:07)
[2021-12-14] MEDS: Metoprolol(XL)Succ 50 MG Tablet PO ×2 (10:57→22:07)
[2021-12-14] MEDS: FLU VACC QS2022-23(6MOS UP)/PF 60 MCG/0.5 ML SYRINGE IM (10:57)
[2021-12-14] MEDS: Pantoprazole Sodium 40 MG Tablet PO ×2 (10:57→22:06)
[2021-12-14] MEDS: Ferrous Sulfate 325 MG Tablet PO (10:59)
[2021-12-14 11:35] LABS: Bedside Glucose 229 mg/dL (74-106)
--- NOTE | 2021-12-14 11:59 | PN.HOSP_ITS ---
Subjective Subjective Patient seen and examined. She complains of pain in her left foot. She has no otherw complaints and review of systems is otherwise negative. She is awaiting evaluation by podiatry. Objective Data Objective Data Vital Signs: Vital Signs Temp Pulse Resp BP Pulse Ox O2 Del Method 98.0 F 91 18 156/55 H 93 Room Air 12/14/21 08:00 12/14/21 10:57 12/14/21 08:00 12/14/21 10:57 12/14/21 08:00 12/14/21 09:42 Oxygen Delivery Method Room Air Weight: 221 lb 9.033 oz Body Mass Index (BMI) 36.3 Intake & Output: Intake and Output for Last 24 Hours 12/12/21 12/13/21 12/14/21 23:59 23:59 23:59 Intake Total 580 / 580 1000 / 1000 Output Total 950 / 950 Balance 580 / -270 50 / 50 Lab / Micro Data Result Diagrams: 12/14/21 06:55 12/14/21 06:55 Labs: Laboratory Results - last 24 hr 12/13/21 14:05: WBC 7.4, RBC 3.56 L, Hgb 9.8 L, Hct 31.8 L, MCV 89.3, MCH 27.5, MCHC 30.8 L, RDW Std Deviation 52.4 H, RDW Coeff of Magen 16.0 H, Plt Count 151, MPV 11.1, Immature Gran % (Auto) 0.700, Neut % (Auto) 69.4, Lymph % (Auto) 19.4, [place] % (Auto) 8.2, Eos % (Auto) 1.5, Baso % (Auto) 0.8, Absolute Neuts (auto) 5.2, Absolute Lymphs (auto) 1.44, Nucleated RBC % 0, ESR 82 H 12/13/21 14:05: Sodium 136, Potassium 5.0, Chloride 104, Carbon Dioxide 27.0, An ion Gap 5, BUN 19 H, Creatinine 1.15 H, Estim Creat Clear Calc 43.89, Est GFR (MDRD) Af Amer 61, Est GFR (MDRD) Non-Af 50 L, BUN/Creatinine Ratio 16.5, Glucose 416 H, Calcium 9.3, C-React Prot Ext Range 4.01 H 12/13/21 14:05: C-React Prot Ext Range 4.34 H, Prealbumin 15.7 L 12/13/21 17:40: POC Glucose 313 H 12/13/21 19:15: S.aureus Protein A PCR NEGATIVE, MRSA (PCR) Negative 12/13/21 22:07: POC Glucose 359 H 12/14/21 06:55: WBC 7.6, RBC 3.55 L, Hgb 9.9 L, Hct 31.5 L, MCV 88.7, MCH 27.9, MCHC 31.4 L, RDW Std Deviation 53.3 H, RDW Coeff of Magen 16.2 H, Plt Count 146 L, MPV 10.7, Immature Gran % (Auto) 0.400, Neut % (Auto) 74.4 H, Lymph % (Auto) 16.1 L, [place] % (Auto) 6.6, Eos % (Auto) 1.8, Baso % (Auto) 0.7, Absolute Neuts (auto) 5.6, Absolute Lymphs (auto) 1.22, Nucleated RBC % 0 12/14/21 06:55: Sodium 141, Potassium 4.0, Chloride 108 H, Carbon Dioxide 27.0, Anion Gap 6, BUN 13, Creatinine 0.92, Estim Creat Clear Calc 54.86, Est GFR (MDRD) Af Amer 79, Est GFR (MDRD) Non-Af 65, BUN/Creatinine Ratio 14.1, Glucose 210 H, Calcium 9.4, Phosphorus 2.8, TSH 5.08 H 12/14/21 06:55: Hemoglobin A1c 7.2 H 12/14/21 08:13: POC Glucose 190 H 12/14/21 11:07: POC Glucose 229 H Micro: Microbiology 12/13/21 19:15 Wound Drainage - Toe Gram Stain - Final Radiography Diagnostic Testing: Radiology Impression Foot X-Ray 12/13/21 13:16 IMPRESSION: Status post amputation of the great toe with evidence of overlying ulceration of the first metatarsal head and possible osteomyelitis of the distal portion of the first metatarsal. Calcaneal spurs. Electronically Signed: Butch Ling MD at 15:17 EDT , Lower Extremity MRI 12/14/21 05:55 IMPRESSION: Status post amputation of the first digit with cellulitis at the site with a deep ulcer extending to the dorsal distal cortex of the first metatarsal bone with cortical osteitis and osteomyelitis of the head and neck of the first metatarsal bone. Electronically Signed: Gil Bolton MD at 10:51 EDT , Physical Exam Const alert, oriented x3 and no apparent distress General Appearance: uncooperative HEENT head/scalp atraumatic, moist oral mucous membranes and oropharynx normal Head and Scalp: normocephalic Mouth: oral and palatal mucosa normal Eyes PERRL, EOMs intact bilaterally and conjunctivae normal Neck no lymphadenopathy and supple Resp normal respiratory effort, no retractions, no use of accessory muscles and clear to auscultation bilaterally Cardio regular rate, regular rhythm, S1 normal heart sound, S2 normal heart sound and no murmurs GI normal to inspection, nondistended, normoactive bowel sounds, soft to palpation, non-tender and non-distended Extremity Extremity Narrative: right foot partially wrapped in bandage. Left foot also wrapped in bandage Neuro oriented x3, CN's II-XII intact bilaterally, moves all extremities and no focal motor deficits Sensorium / Orientation: awake and alert Motor Exam: strength 5/5 throughout Assessment & Plan Assessment/Plan (1) Foot ulcer, left: (2) Cellulitis of left foot: PLAN: Plan #Nonhealing left foot ulcer * has a chronic left foot nonhealing ulcer. Had left great toe amputated. * has diabetic nephropathy and uncontrolled hyperglycemia. * on IV vancomycin and ceftriaxone. * wound cultures from 12/07 grew Enterococcus fecalis and corynebacterium * podiatry and ID consulted; await rec's * wound care also on board. * MRI of foot ordered. * #CAD: on aspirin, metoprolol and satin. #HFpEF: not in exacerbation. Continue diuretics #Type 2 diabetes mellitus * poorly controlled * on lantus 35 units qhs as well as dulaglutide * ISS. Accuchecks ACHS * A1C is 7.2 * #Hypothyroidism; on synthroid. TSH is pending #Hypertension; on lisinopril. #COPD: not in exacerbation. Breathing treatment with bronchodilators #Hyprlipidemia: on statin #Depression; on mirtazapine and Abilify #DVT prophylaxis: heparin. Charges/Coding Visit Charges Inpatient E&M: 03368 Subs Hosp L2
--- NOTE | 2021-12-14 12:01 | CASEMGMT ---
Social Work SW?to room to meet with patient for initial transition planning/care coordination?assessment.?SW?introduced self and role at [facility].? Pt voices understanding and consents to?assessment?at this time.? Pt resting in bed in no distress at this time.? Pt is A/O at this time and answers all questions appropriately.?? Care providers, pharmacy, and demographics verified/updated at this time. PCP: Geovanna Mott Specialists: Cardio-Dr Souza, Pulm- Dr. Mcwilliams, Pod- Dr. Odell Preferred Pharmacy: pt gets prescriptions from [place] Insurance: [facility] Dual Prescription Benefit:?yes Living Will/HPOA:?Pt does not currently have LW/HCPOA. Pt stated possibly interested in making son HCPOA. LNOK: Son, Chava Pavon Living Arrangements: [place] apartment, has some steps but pt cannot recall how many. Transportation:?Pt states receives transportation from [place] or ex also provides transportation at times. DME: States has the following DME: wheelchair, walker, rollator, shower chair? Pt states no need for further DME at this time.? HHC/SNF: Pt previous been to TCU and other SNFs. Pt requesting to go home. Pt does not want to go to ECF or SNF. Pt wishes to return home to her Assisted Living apartment at [facility] and states has no concerns with going home at time of discharge.? SW?to follow for home going needs and any further discharge planning/needs.? Pt voices no further concerns/needs at this time.? Advised pt to ask for?SW?if any further questions/concerns/needs arise.? Voices understanding. PLAN: Home, to follow for HHC if needed. JAYY Georges
--- NOTE | 2021-12-14 12:51 | PCM.CONS.GEN ---
Assessment & Plan Assessment/Plan (1) Foot osteomyelitis, left: PLAN: S/p L hallux amp 10/21/[address] No. Surg cx at that time with proteus. Wound cx now with corynebacter, e faecalis, and yeast. On vanc/ceftriaxone, will add fluc. Podiatry to see. Will follow, thank you HPI Consult Data Date of Consult: 12/14/21 HPI Narrative Reason for Consultation: osteo HPI Narrative: SONA WILSON, is a 66 F who presented with worsening L foot pain, redness, swelling, and drainage for past few days. Had L hallux amputation by Dr. No 10/21/21 for dry gangrene. Now with worsened foot and redness extending up both shins. No fever, no n/v/d. Admitted on vanc/ceftriaxone. MRI done, podiatry to see. Full ROS performed and neg except as noted above. [facility] Medical History Acute cervical myofascial strain Acute on chronic respiratory failure with hypoxemia Amputated toe of left foot Anemia Asthma Atherosclerotic heart disease of [place] coronary artery without angina pectoris Atrial fibrillation CAD (coronary artery disease) CHF (congestive heart failure) Chronic heart failure with preserved ejection fraction (HFpEF) Chronic heel ulcer Chronic respiratory failure with hypoxia, on home oxygen therapy Chronic ulcer of great toe of left foot Closed head injury Congestive heart failure (CHF) COPD (chronic obstructive pulmonary disease) Current use of insulin Decubitus ulcer of dorsum of foot, stage 2 Decubitus ulcer of left heel, stage 2 Decubitus ulcer of left heel, stage 3 Decubitus ulcer, heel, left, unstageable Depression Diabetes mellitus with diabetic polyneuropathy Diabetes type 2, controlled Diabetic foot ulcers Diverticulitis Essential hypertension Former smoker History of amputation of left great toe History of non-ST elevation myocardial infarction (NSTEMI) (02/24/17) Hyperlipidemia Hypothyroid Myocardial infarct Non-rheumatic tricuspid valve insufficiency Nondisplaced fracture of distal phalanx of right great toe, initial encounter for closed fracture Nonrheumatic mitral (valve) insufficiency Obesity Obstructive sleep apnea On home O2 Renal insufficiency Secondary pulmonary arterial hypertension Type 2 diabetes mellitus Home Medications furosemide 80 mg tablet 80 mg PO DAILY water pill 09/02/20 [History Last Taken 12/13/21] aspirin 81 mg tablet,delayed release (Adult Aspirin Regimen) 81 mg PO DAILY heart 05/17/21 [History Last Taken 12/13/21] insulin detemir U-100 100 unit/mL (3 mL) subcutaneous pen (Levemir FlexTouch U-100 Insulin) 35 unit subcut QHS blood sugar 09/02/21 [History Last Taken 12/12/21] pantoprazole 40 mg tablet,delayed release 40 mg PO BID GERD 10/22/21 [History Last Taken 12/13/21] metoprolol succinate 50 mg tablet,extended release 24 hr 50 mg PO BID BP 11/08/21 [History Last Taken 12/13/21] aripiprazole 10 mg tablet (Abilify) 10 mg PO QHS MOOD 12/13/21 [History Last Taken 12/12/21] atorvastatin 40 mg tablet 40 mg PO QHS CHOLESTEROL 12/13/21 [History Last Taken 12/12/21] dulaglutide 0.75 mg/0.5 mL subcutaneous pen injector (Trulicity) 0.75 mg subcut WE DM 12/13/21 [History Last Taken Unknown] gabapentin 100 mg capsule 200 mg PO TID NERVE PAIN 12/13/21 [History Last Taken 12/13/21] insulin lispro 100 unit/mL subcutaneous pen See Protocol subcut TIDCM 12/13/21 [History Last Taken 12/13/21] insulin lispro 100 unit/mL subcutaneous pen (Humalog KwikPen (U-100) Insulin) 2 unit subcut TIDAC DM 12/13/21 [History Last Taken 12/13/21] levothyroxine 100 mcg tablet (Synthroid) 100 mcg PO DAILY THYROID 12/13/21 [History Last Taken 12/13/21] mirtazapine 30 mg tablet 30 mg PO QHS SLEEP 12/13/21 [History Last Taken 12/12/21] montelukast 10 mg tablet 10 mg PO QHS ALLERGIES 12/13/21 [History Last Taken Unknown] potassium chloride 20 mEq tablet,extended release(part/cryst) 20 meq PO DAILY SUPPLEMENT 12/13/21 [History Last Taken 12/13/21] sennosides 8.6 mg-docusate sodium 50 mg tablet (Senna-S) 1 tab PO BID STOOL SOFTNER 12/13/21 [History Last Taken 12/13/21] trazodone 100 mg tablet 100 mg PO QHS SLEEP 12/13/21 [History Last Taken 12/12/21] Allergy/AdvReac Type Severity Reaction Status Date / Time doxycycline Allergy NEEDS Verified 12/13/21 16:30 FOLLOW-UP latex Allergy NEEDS Verified 12/13/21 16:30 FOLLOW-UP Sulfa (Sulfonamide Allergy Anaphylaxis Verified 11/22/21 10:13 Antibiotics) sulfur dioxide Allergy Anaphylaxis Verified 11/22/21 10:13 atorvastatin AdvReac Other Verified 12/13/21 16:30 oxycodone AdvReac Other Verified 12/13/21 12:48 Family History Grandmother Diabetes Mother Heart disease Surgical History (Updated 12/13/21 @ 16:36 by Fatuma Grider) H/O right heart catheterization History of cataract surgery History of coronary artery stent placement (02/24/17) History of heart artery stent Tubal ligation status Social History household members: none housing: other details: [facility] [place]. Smoking Status: Former smoker how long ago did patient quit smokin alcohol intake: former year quit: 1999 substance use type: does not use caffeine: Yes Type: carbonated beverages and tea Physical Exam Const alert and no apparent distress General Appearance: cooperative HEENT normocephalic and head/scalp atraumatic Eyes PERRL and EOMs intact bilaterally Neck supple and No nodes Resp normal air movement and clear to auscultation bilaterally Cardio regular rate and regular rhythm GI soft to palpation, non-tender and non-distended Extremity General Extremity: edema Skin Skin Narrative: reviewed photos Neuro CN's II-XII intact bilaterally Lab / Micro Data Attestation: I reviewed the patient's lab results. Result Diagrams: 12/14/21 06:55 12/14/21 06:55 Labs: Laboratory Results - last 24 hr 12/13/21 14:05: WBC 7.4, RBC 3.56 L, Hgb 9.8 L, Hct 31.8 L, MCV 89.3, MCH 27.5, MCHC 30.8 L, RDW Std Deviation 52.4 H, RDW Coeff of Magen 16.0 H, Plt Count 151, MPV 11.1, Immature Gran % (Auto) 0.700, Neut % (Auto) 69.4, Lymph % (Auto) 19.4, [place] % (Auto) 8.2, Eos % (Auto) 1.5, Baso % (Auto) 0.8, Absolute Neuts (auto) 5.2, Absolute Lymphs (auto) 1.44, Nucleated RBC % 0, ESR 82 H 12/13/21 14:05: Sodium 136, Potassium 5.0, Chloride 104, Carbon Dioxide 27.0, Anion Gap 5, BUN 19 H, Creatinine 1.15 H, Estim Creat Clear Calc 43.89, Est GFR (MDRD) Af Amer 61, Est GFR (MDRD) Non-Af 50 L, BUN/Creatinine Ratio 16.5, Glucose 416 H, Calcium 9.3, C-React Prot Ext Range 4.01 H 12/13/21 14:05: C-React Prot Ext Range 4.34 H, Prealbumin 15.7 L 12/13/21 17:40: POC Glucose 313 H 12/13/21 19:15: S.aureus Protein A PCR NEGATIVE, MRSA (PCR) Negative 12/13/21 22:07: POC Glucose 359 H 12/14/21 06:55: WBC 7.6, RBC 3.55 L, Hgb 9.9 L, Hct 31.5 L, MCV 88.7, MCH 27.9, MCHC 31.4 L, RDW Std Deviation 53.3 H, RDW Coeff of Magen 16.2 H, Plt Count 146 L, MPV 10.7, Immature Gran % (Auto) 0.400, Neut % (Auto) 74.4 H, Lymph % (Auto) 16.1 L, [place] % (Auto) 6.6, Eos % (Auto) 1.8, Baso % (Auto) 0.7, Absolute Neuts (auto) 5.6, Absolute Lymphs (auto) 1.22, Nucleated RBC % 0 12/14/21 06:55: Sodium 141, Potassium 4.0, Chloride 108 H, Carbon Dioxide 27.0, Anion Gap 6, BUN 13, Creatinine 0.92, Estim Creat Clear Calc 54.86, Est GFR (MDRD) Af Amer 79, Est GFR (MDRD) Non-Af 65, BUN/Creatinine Ratio 14.1, Glucose 210 H, Calcium 9.4, Phosphorus 2.8, TSH 5.08 H 12/14/21 06:55: Hemoglobin A1c 7.2 H 12/14/21 08:13: POC Glucose 190 H 12/14/21 11:07: POC Glucose 229 H Micro: Microbiology 12/13/21 19:15 Wound Drainage - Toe Gram Stain - Final 12/13/21 19:15 Wound Drainage - Toe Wound Culture - Preliminary Radiology Impression Foot X-Ray 12/13/21 13:16 IMPRESSION: Status post amputation of the great toe with evidence of overlying ulceration of the first metatarsal head and possible osteomyelitis of the distal portion of the first metatarsal. Calcaneal spurs. Electronically Signed: Butch Ling MD at 15:17 EDT , Lower Extremity MRI 12/14/21 05:55 IMPRESSION: Status post amputation of the first digit with cellulitis at the site with a deep ulcer extending to the dorsal distal cortex of the first metatarsal bone with cortical osteitis and osteomyelitis of the head and neck of the first metatarsal bone. Electronically Signed: Gil Bolton MD at 10:51 EDT ,
[2021-12-14] MEDS: Vancomycin IV 1,000 MG/200 ML BAG 200 MG IV (14:18)
--- NOTE | 2021-12-14 14:50 | CHAPLAIN ---
Type of Pastoral Visit _x__ Initial Visit ___ Follow-up Visit ___ On-call Visit ___ General Patient Visit ___ Spiritual Assessment ___ Family Conference ___ Bereavement ___ Rapid Response ___ Code Blue ___ Other (describe below) Pastoral Care Referral From _x__ Patient ___ Family ___ Nurse ___ Physician ___ Counseling Aide ___ Back Roll Lathe Operator ___ Other (describe below) Sacrament/Intervention _x__ Active listening ___ Anointing ___ Tenriism ___ Bereavement ___ Communion ___ Charo exploration ___ _x__ Life review _x_ Prayer ___ Reconciliation ___ Sacrament of Sick _x__ Supportive presence ___ Wedding ___ Other (describe below) Pastoral Comments patient was seen before when admitted in [facility] and in TCU; pt is back to have amputation of toes/foot; pt states that she will accept whatever is the decision because she needs freed from pain and problem; daughter and grandson are in the room and both are vocal about themselves and the patient; grandson has some life drama and is very talkative about it; all request a time of prayer; presence and patience given to listen to life review
[2021-12-14] MEDS: Fluconazole 100 MG Tablet 400 MG PO (15:47)
[2021-12-14] MEDS: Morphine 2 MG/ML Syringe IV ×2 (15:48→23:37)
[2021-12-14] MEDS: Juven (unflavored) Packet 1 PACKET PO (16:25)
[2021-12-14 16:50] LABS: Bedside Glucose 235 mg/dL (74-106)
--- NOTE | 2021-12-14 17:45 | PCM.CONS.GEN ---
Assessment & Plan Assessment/Plan (1) Foot osteomyelitis, left: (2) Foot ulcer, left: (3) Debility: (4) Anemia: (5) Cellulitis of left foot: (6) Acute respiratory failure with hypoxia: (7) Depression: (8) Atrial fibrillation with rapid ventricular response: (9) Vitamin D deficiency: (10) Chronic obstructive pulmonary disease: (11) Diabetic polyneuropathy: PLAN: Plan Patient seen and evaluated I discussed with patient her current case/condition of the left foot. Discussion was had with patient as to the loss of follow-up with her citing transportation issue. Infection/ulceration: Left hallux amputation stump demonstrates ulceration with black, necrotic tissue at the wound margin with yellow crusting/hyperkeratosis surrounding the eschar. Central aspect of the wound demonstrates dense fibrotic tissue with some serosanguineous drainage. Ulceration probes to bone of the first metatarsal head with a small area of likely exposed metatarsal head, which is high clinical suspicion for osteomyelitis. Wound margins also demonstrate erythema extending dorsally onto the foot. No palpable bogginess, no fluctuance, no purulent drainage, no malodor. There is pain about the ulcerative site. WBC 7.6 currently. Previous surgical cultures from 10/21/2021 demonstrate Proteus. Current cultures demonstrate corynebacterium, E. faecalis, and yeast. Patient currently on IV antibiotics Vanco/ceftriaxone and fluconazole. Vascular: LEAS were performed 10/17/2021 demonstrating biphasic PT pulse and monophasic DP pulse of the left foot. Right foot demonstrates biphasic DP and PT pulses. She was negative for DVT at that time despite a D-dimer of 0.81. Edema: To elevate bilateral lower extremities at all times of rest with pillows placed under the legs while in recliner. Offloading waffle boot to bilateral lower extremity when in bed. Dressing: Site painted with Betadine and dressed with dry sterile dressing. Nursing to change dressing daily. Radiographs: Radiographs obtained of the left foot on 12/13/2021 demonstrating amputation of the hallux with evidence of overlying ulceration of the first metatarsal head with possible osteomyelitis of the distal portion of the first metatarsal. MRI obtained 12/14/2021 demonstrates status post amputation of the the hallux with cellulitis at the site with a deep ulcer extending to the dorsal distal cortex of the first metatarsal bone with cortical osteitis and osteomyelitis of the head and neck of the first metatarsal bone. Host factors: DM type II, A1c 7.2% on 12/14/2021. Chronic venous insufficiency bilateral, lymphedema bilateral, bouts of confusion/dementia, chronic COPD. Medicine team is following for medical management, this is greatly appreciated. Infectious diseases following for IV antibiotic management, this is greatly appreciated. I discussed with her that she currently has confirmed osteomyelitis of the first metatarsal head extending into the neck of the metatarsal. I discussed with her that this poses continued infection risk/progression of osteomyelitis to surrounding bones.? I discussed that the infection may worsen in nature due to her diabetes and she could pose a risk of limb loss or loss of life if not addressed surgically.? I discussed with her partial ray resection of the first metatarsal as a salvage procedure to save the foot and prevent further deterioration and progressing infection. She is agreeable to this and feels it is a necessary procedure to save her foot.? I discussed with her today the preoperative indications, planned procedure, benefits, risk, and anticipated healing time and management.? The patient understands that this is a limb salvage procedure and elects proceed with surgery at this time.? No guarantees were made.? The patient understands risk and complications include but are not limited to following: pain, swelling, scarring, tendon contracture, transfer lesion,?arthritis, need for further surgery, delayed or nonhealing, infection, blood clot, allergic reaction, loss of limb, loss of function, or loss of life. I answered all the patient's questions.? Patient will consent for a partial ray resection of the first metatarsal with planned surgical intervention on 12/16/2021.? She will remain n.p.o. after midnight prior to procedure.? Following procedure she will remain?non-weightbearing to the left foot surgical offloading shoe with assistance of walker and wheelchair. Podiatry will continue to follow. At this point in time planning surgical intervention to occur on 12/16/2021 for a partial first ray resection of the left foot. Please do not hesitate to call with any questions or concerns. Jr. Leny MorganP.M. [facility] [phone] Note: [employer] speech recognition engraving supervisor software was used to create portions of this document. Sound-alike and misspelled words, as well as other engraving supervisor errors may be contained in the documentation. HPI Consult Data Date of Consult: 12/14/21 HPI Narrative Reason for Consultation: Open wound first metatarsal head left foot HPI Narrative: SONA WILSON, is a 66 F who presents by way of squad to [facility] for a wound to the dorsal aspect of the first metatarsal head and cellulitis of the bilateral lower extremities. I am well-known to patient and performed hallux amputation secondary to osteomyelitis of the proximal phalanx head on 10/21/2021. Patient was closely followed during postoperative period and was healing well. Sutures were removed and patient had a bout of confusion/dementia dropping a lunch tray on the amputation stump causing the site to reopen. During this bout of confusion she proceeded to continue to ambulate without a postoperative shoe leading to further dehiscence of her wound site. Patient was placed into a half-way facility following her discharge and was lost to follow-up due to transportation issues. Upon presentation to the [facility] on 12/13/2021 she demonstrated a dry necrotic wound site which probe to bone with cellulitis of the lower extremities. She was placed on empirical IV antibiotics Vanco/Zosyn. And she was consulted to podiatry for local wound care and possible osteomyelitis. Patient denies any nausea, vomiting, fever, chills, shortness of breath. She does admit to some left foot pain about the wound site. She has no further complaints today [facility] Medical History Acute cervical myofascial strain Acute on chronic respiratory failure with hypoxemia Amputated toe of left foot Anemia Asthma Atherosclerotic heart disease of false pass coronary artery without angina pectoris Atrial fibrillation CAD (coronary artery disease) CHF (congestive heart failure) Chronic heart failure with preserved ejection fraction (HFpEF) Chronic heel ulcer Chronic respiratory failure with hypoxia, on home oxygen therapy Chronic ulcer of great toe of left foot Closed head injury Congestive heart failure (CHF) COPD (chronic obstructive pulmonary disease) Current use of insulin Decubitus ulcer of dorsum of foot, stage 2 Decubitus ulcer of left heel, stage 2 Decubitus ulcer of left heel, stage 3 Decubitus ulcer, heel, left, unstageable Depression Diabetes mellitus with diabetic polyneuropathy Diabetes type 2, controlled Diabetic foot ulcers Diverticulitis Essential hypertension Former smoker History of amputation of left great toe History of non-ST elevation myocardial infarction (NSTEMI) (02/24/17) Hyperlipidemia Hypothyroid Myocardial infarct Non-rheumatic tricuspid valve insufficiency Nondisplaced fracture of distal phalanx of right great toe, initial encounter for closed fracture Nonrheumatic mitral (valve) insufficiency Obesity Obstructive sleep apnea On home O2 Renal insufficiency Secondary pulmonary arterial hypertension Type 2 diabetes mellitus Home Medications furosemide 80 mg tablet 80 mg PO DAILY water pill 09/02/20 [History Last Taken 12/13/21] aspirin 81 mg tablet,delayed release (Adult Aspirin Regimen) 81 mg PO DAILY heart 05/17/21 [History Last Taken 12/13/21] insulin detemir U-100 100 unit/mL (3 mL) subcutaneous pen (Levemir FlexTouch U-100 Insulin) 35 unit subcut QHS blood sugar 09/02/21 [History Last Taken 12/12/21] pantoprazole 40 mg tablet,delayed release 40 mg PO BID GERD 10/22/21 [History Last Taken 12/13/21] metoprolol succinate 50 mg tablet,extended release 24 hr 50 mg PO BID BP 11/08/21 [History Last Taken 12/13/21] aripiprazole 10 mg tablet (Abilify) 10 mg PO QHS MOOD 12/13/21 [History Last Taken 12/12/21] atorvastatin 40 mg tablet 40 mg PO QHS CHOLESTEROL 12/13/21 [History Last Taken 12/12/21] dulaglutide 0.75 mg/0.5 mL subcutaneous pen injector (Trulicity) 0.75 mg subcut WE DM 12/13/21 [History Last Taken Unknown] gabapentin 100 mg capsule 200 mg PO TID NERVE PAIN 12/13/21 [History Last Taken 12/13/21] insulin lispro 100 unit/mL subcutaneous pen See Protocol subcut TIDCM 12/13/21 [History Last Taken 12/13/21] insulin lispro 100 unit/mL subcutaneous pen (Humalog KwikPen (U-100) Insulin) 2 unit subcut TIDAC DM 12/13/21 [History Last Taken 12/13/21] levothyroxine 100 mcg tablet (Synthroid) 100 mcg PO DAILY THYROID 12/13/21 [History Last Taken 12/13/21] mirtazapine 30 mg tablet 30 mg PO QHS SLEEP 12/13/21 [History Last Taken 12/12/21] montelukast 10 mg tablet 10 mg PO QHS ALLERGIES 12/13/21 [History Last Taken Unknown] potassium chloride 20 mEq tablet,extended release(part/cryst) 20 meq PO DAILY SUPPLEMENT 12/13/21 [History Last Taken 12/13/21] sennosides 8.6 mg-docusate sodium 50 mg tablet (Senna-S) 1 tab PO BID STOOL SOFTNER 12/13/21 [History Last Taken 12/13/21] trazodone 100 mg tablet 100 mg PO QHS SLEEP 12/13/21 [History Last Taken 12/12/21] Allergy/AdvReac Type Severity Reaction Status Date / Time doxycycline Allergy NEEDS Verified 12/13/21 16:30 FOLLOW-UP latex Allergy NEEDS Verified 12/13/21 16:30 FOLLOW-UP Sulfa (Sulfonamide Allergy Anaphylaxis Verified 11/22/21 10:13 Antibiotics) sulfur dioxide Allergy Anaphylaxis Verified 11/22/21 10:13 atorvastatin AdvReac Other Verified 12/13/21 16:30 oxycodone AdvReac Other Verified 12/13/21 12:48 Family History Grandmother Diabetes Mother Heart disease Surgical History (Updated 12/13/21 @ 16:36 by Fatuma Grider) H/O right heart catheterization History of cataract surgery History of coronary artery stent placement (02/24/17) History of heart artery stent Tubal ligation status Social History household members: none housing: other details: [facility] [place]. Smoking Status: Former smoker how long ago did patient quit smokin alcohol intake: former year quit: 1999 substance use type: does not use caffeine: Yes Type: carbonated beverages and tea ROS Constitutional Constitutional: Denies body ache(s), chills, fever(s), headache(s) or malaise Eyes Eyes: Denies blurry vision, diplopia or eye pain ENT HEENT: Denies dysphagia, nasal congestion, nasal discharge, sinus pressure or sore throat Cardiovascular Cardiovascular: Denies chest pain, claudication or palpitations Respiratory/Chest Respiratory/Chest: Denies chest congestion, cough or dyspnea Gastrointestinal Gastrointestinal: Denies abdominal pain, constipation, diarrhea, nausea or vomiting Genitourinary Genitourinary: Denies dysuria, urinary frequency, urinary hesitancy, urinary incontinence or urinary urgency Musculoskeletal Musculoskeletal: Denies joint pain, joint stiffness or joint swelling Integumentary Integumentary: Denies jaundice, lesions or pruritus Neurologic Neurologic: Reports confusion; Denies convulsions, dizziness or seizures Psychiatric Psychiatric: Reports anxiety Endocrine Endocrinology: Denies cold intolerance, heat intolerance, polydipsia, polyphagia or polyuria Hematologic/Lymphatic Hematologic/Lymphatic: Denies easy bleeding or easy bruising Physical Exam Const alert, oriented x3 and no apparent distress General Appearance: cooperative HEENT normocephalic Eyes General Eye: normal appearance of both eyes Neck General: normal visual inspection Lymph Lymphatic: no lymphadenopathy noted and no lymphedema noted Resp normal respiratory effort Cardio regular rate Extremity no calf tenderness and no pedal edema Extremity Narrative: Left foot: DP and PT weakly palpable. DP monophasic on Doppler. PT biphasic on Doppler. Capillary fill time to the digits of the left foot is less than 5 seconds. Right foot: DP and PT palpable. Capillary fill time is less than 5 seconds. Skin no rashes or lesions noted, skin turgor normal and no jaundice General Skin Exam: erythema Wound Narrative: Right foot: Posterior heel decubitus ulceration demonstrates stable eschar. No signs of infection. Left foot: Posterior heel decubitus ulceration x2 with stable eschar. No signs of infection. Left hallux amputation stump demonstrates ulceration with black, necrotic tissue at the wound margin with yellow crusting/hyperkeratosis surrounding the eschar. Central aspect of the wound demonstrates dense fibrotic tissue with some serosanguineous drainage. Ulceration probes to bone of the first metatarsal head with a small area of likely exposed metatarsal head wound margins also demonstrate erythema extending dorsally onto the foot. No palpable bogginess, no fluctuance, no purulent drainage, no malodor. There is pain about the ulcerative site. Neuro moves all extremities Psych cooperative Lab / Micro Data Result Diagrams: 12/14/21 06:55 12/14/21 06:55 Labs: Laboratory Results - last 24 hr 12/13/21 14:05: C-React Prot Ext Range 4.34 H, Prealbumin 15.7 L 12/13/21 17:40: POC Glucose 313 H 12/13/21 19:15: S.aureus Protein A PCR NEGATIVE, MRSA (PCR) Negative 12/13/21 22:07: POC Glucose 359 H 12/14/21 06:55: WBC 7.6, RBC 3.55 L, Hgb 9.9 L, Hct 31.5 L, MCV 88.7, MCH 27.9, MCHC 31.4 L, RDW Std Deviation 53.3 H, RDW Coeff of Magen 16.2 H, Plt Count 146 L, MPV 10.7, Immature Gran % (Auto) 0.400, Neut % (Auto) 74.4 H, Lymph % (Auto) 16.1 L, [place] % (Auto) 6.6, Eos % (Auto) 1.8, Baso % (Auto) 0.7, Absolute Neuts (auto) 5.6, Absolute Lymphs (auto) 1.22, Nucleated RBC % 0 12/14/21 06:55: Sodium 141, Potassium 4.0, Chloride 108 H, Carbon Dioxide 27.0, Anion Gap 6, BUN 13, Creatinine 0.92, Estim Creat Clear Calc 54.86, Est GFR (MDRD) Af Amer 79, Est GFR (MDRD) Non-Af 65, BUN/Creatinine Ratio 14.1, Glucose 210 H, Calcium 9.4, Phosphorus 2.8, TSH 5.08 H 12/14/21 06:55: Hemoglobin A1c 7.2 H 12/14/21 08:13: POC Glucose 190 H 12/14/21 11:07: POC Glucose 229 H 12/14/21 16:22: POC Glucose 235 H Micro: Microbiology 12/13/21 19:15 Wound Drainage - Toe Gram Stain - Final 12/13/21 19:15 Wound Drainage - Toe Wound Culture - Preliminary Radiology Impression Lower Extremity MRI 12/14/21 05:55 IMPRESSION: Status post amputation of the first digit with cellulitis at the site with a deep ulcer extending to the dorsal distal cortex of the first metatarsal bone with cortical osteitis and osteomyelitis of the head and neck of the first metatarsal bone. Electronically Signed: Gil Bolton MD at 10:51 EDT ,
[2021-12-14] MEDS: traZODone 100 MG Tablet PO (22:04)
[2021-12-14] MEDS: Atorvastatin Calcium 40 MG Tablet PO (22:06)
[2021-12-14] MEDS: Insulin Glargine-YFGN 100 UNIT/ML Pen 35 UNIT SC (22:06)
[2021-12-14] MEDS: Montelukast 10 MG Tablet PO (22:07)
[2021-12-14 22:30] LABS: Bedside Glucose 242 mg/dL (74-106)
[2021-12-15] VITALS (11 sets, daily range): BP systolic 131–144; BP diastolic 55–73; PULSE 70–87; RESP 16–18; TEMP 36.5–37.1; O2SAT 95–100
[2021-12-15] MEDS: Gabapentin 100 MG Capsule 200 MG PO ×3 (06:25→21:45)
[2021-12-15] MEDS: Nystatin Powder 15gm Bottle 1 APPLIC TOPICAL ×3 (06:25→21:46)
[2021-12-15] MEDS: Levothyroxine 100 MCG Tablet PO (06:25)
[2021-12-15 06:40] LABS: Absolute Lymphocyte Count 1.18 X10^3/uL (0.83-4.51); Absolute Neutrophil Count 4.7 X10^3/uL (2.0-7.7); Basophil# 0.06 X10^3/uL; Basophil% 0.9 % (0-1); Eosinophil# 0.19 X10^3/uL; Eosinophils% 2.9 % (0-5); Hematocrit 29.8 % (37-47); Hemoglobin 9.1 g/dL (12.0-15.0); Lymphocyte # 1.18 X10^3/ul (0.83-4.51); Lymphocyte % 17.7 % (19-41); Mean Corp Hgb Conc 30.5 g/dL (32-36); Mean Corpuscular Hgb 27.5 pg (27.0-32.0); Mean Platelet Vol. 11.1 fl (6.2-12.0); Monocyte# 0.54 X10^3/uL; Monocyte% 8.1 % (0-10); NRBC Flagged by Analyzer 0 % (0-5); Neutrophil # 4.65 X10^3/uL (2.7-7.7); Neutrophil % 69.9 % (47-70); Platelet Count 131 K/mm3 (150-450); RBC Distribution Width CV 16.3 % (11.6-14.6); Red Blood Count 3.31 M/mm3 (4.2-5.4); White Blood Count 6.7 K/mm3 (4.4-11.0)
[2021-12-15 07:14] LABS: Anion Gap 7 (5-15); BUN 16 mg/dL (7-18); BUN/Creat Ratio 16.9 RATIO (10-20); Calcium,Total 8.9 mg/dL (8.5-10.1); Chloride 108 mmol/L (98-107); Creatinine, Serum 0.95 mg/dL (0.55-1.02); EST Glomerular Filtration Rate 63 mL/min (>60); Est Glom Filt Rate - Afr Amer 76 mL/min (>60); Estimated Creatinine Clearance 53.13 ml/min; Glucose 211 mg/dL (74-106); Potassium 4.5 mmol/L (3.5-5.1); Sodium Level 139 mmol/L (136-145)
[2021-12-15 08:00] LABS: Bedside Glucose 233 mg/dL (74-106)
[2021-12-15] MEDS: Insulin Lispro 100 UNIT/ML INSULN.PEN SC ×4 (09:07→21:44)
[2021-12-15] MEDS: Metoprolol(XL)Succ 50 MG Tablet PO ×2 (09:08→21:46)
[2021-12-15] MEDS: Juven (unflavored) Packet 1 PACKET PO ×2 (09:08→15:59)
[2021-12-15] MEDS: Insulin Lispro 100 UNIT/ML INSULN.PEN 10 UNIT SC ×3 (09:08→15:54)
[2021-12-15] MEDS: Pantoprazole Sodium 40 MG Tablet PO ×2 (09:08→21:45)
[2021-12-15] MEDS: Senna/Docusate Sodium 1 Tablet PO ×2 (09:08→21:46)
[2021-12-15] MEDS: Aspirin E.C. 81 MG Tablet PO (09:09)
[2021-12-15] MEDS: Fluconazole 100 MG Tablet 200 MG PO (09:09)
[2021-12-15] MEDS: Heparin Injection (Vial) 5,000 UNIT/ML VIAL 5000 UNIT SC ×2 (09:09→21:44)
[2021-12-15] MEDS: Glucerna Shake 120 ML LIQUID PO ×3 (09:17→15:58)
[2021-12-15] MEDS: Acetaminophen 325 MG Tablet 650 MG PO ×3 (09:45→22:12)
--- NOTE | 2021-12-15 10:01 | PCM.PN.ID ---
Physical Exam Narrative Feeling better, no fever, redness improved. Const alert and no apparent distress Resp normal air movement and clear to auscultation bilaterally Cardio regular rate and regular rhythm GI soft to palpation, non-tender and non-distended Skin Skin Narrative: Feet wrapped, shins less red ID ID: Route of nutrition/ use of supplements: [] Nutritional Intake: [] IV Site: [] Knight Catheter: [] Assessment & Plan Assessment/Plan (1) Foot osteomyelitis, left: PLAN: S/p L hallux amp 10/21/[address] No. Surg cx at that time with proteus. Wound cx now with corynebacter, e faecalis, and yeast. On vanc/ceftriaxone/fluc. Podiatry plan is for OR tomorrow. Will follow, thank you
--- NOTE | 2021-12-15 10:55 | PN.HOSP_ITS ---
Subjective Subjective Patient seen and examined. She complains of confusion due to pain. Review of systems is otherwise negative. She has otherwise remained hemodynamically stable. MRI of the left foot showed evidence of cllulitis of the first digit s/p amputation with a deep ulcer extending to the dorsal distal cortex of the first metatarsal bone with cortical osteitis and osteomyelitis of the head and neck of the first metatarsal bone. She is due for surgery tomorrow. Objective Data Objective Data Vital Signs: Vital Signs Temp Pulse Resp BP Pulse Ox O2 Del Method O2 Flow Rate 98.7 F 85 16 144/63 H 100 Room Air 2 12/15/21 09:38 12/15/21 09:38 12/15/21 09:38 12/15/21 09:38 12/15/21 09:51 12/15/21 09:38 12/15/21 09:51 Oxygen Flow Rate (L/min) 2 Oxygen Delivery Method Room Air Weight: 221 lb 9.033 oz Body Mass Index (BMI) 36.3 Intake & Output: Intake and Output for Last 24 Hours 12/13/21 12/14/21 12/15/21 23:59 23:59 23:59 Intake Total 580 / 580 1250 / 1950 1350 / 1350 Output Total 1750 / 2200 1000 / 1000 Balance 580 / -270 -500 / -250 350 / 350 Lab / Micro Data Result Diagrams: 12/15/21 06:10 12/15/21 06:10 Labs: Laboratory Results - last 24 hr 12/14/21 11:07: POC Glucose 229 H 12/14/21 16:22: POC Glucose 235 H 12/14/21 22:02: POC Glucose 242 H 12/15/21 06:10: WBC 6.7, RBC 3.31 L, Hgb 9.1 L, Hct 29.8 L, MCV 90.0, MCH 27.5, MCHC 30.5 L, RDW Std Deviation 54.0 H, RDW Coeff of Magen 16.3 H, Plt Count 131 L, MPV 11.1, Immature Gran % (Auto) 0.500, Neut % (Auto) 69.9, Lymph % (Auto) 17.7 L, Dickinson % (Auto) 8.1, Eos % (Auto) 2.9, Baso % (Auto) 0.9, Absolute Neuts (auto) 4.7, Absolute Lymphs (auto) 1.18, Nucleated RBC % 0 12/15/21 06:10: Sodium 139, Potassium 4.5, Chloride 108 H, Carbon Dioxide 24.0, Anion Gap 7, BUN 16, Creatinine 0.95, Estim Creat Clear Calc 53.13, Est GFR (MDRD) Af Amer 76, Est GFR (MDRD) Non-Af 63, BUN/Creatinine Ratio 16.9, Glucose 211 H, Calcium 8.9 12/15/21 07:35: POC Glucose 233 H Micro: Microbiology 12/13/21 19:15 Wound Drainage - Toe Gram Stain - Final 12/13/21 19:15 Wound Drainage - Toe Wound Culture - Preliminary Gram positive marita 12/13/21 13:40 Blood Culture (Wb) - Right Wrist Blood Culture - Preliminary No growth in 48 hours. 12/13/21 14:05 Blood Culture (Wb) - Anticubital Left Blood Culture - Preliminary No growth in 48 hours. Physical Exam Const alert, oriented x3 and no apparent distress General Appearance: uncooperative HEENT head/scalp atraumatic, moist oral mucous membranes and oropharynx normal Head and Scalp: normocephalic Mouth: oral and palatal mucosa normal Eyes PERRL, EOMs intact bilaterally and conjunctivae normal Neck no lymphadenopathy and supple Resp normal respiratory effort, no retractions, no use of accessory muscles and clear to auscultation bilaterally Cardio regular rate, regular rhythm, S1 normal heart sound, S2 normal heart sound and no murmurs GI normal to inspection, nondistended, normoactive bowel sounds, soft to palpation, non-tender and non-distended Extremity Extremity Narrative: right foot partially wrapped in bandage. Left foot also wrapped in bandage Neuro oriented x3, CN's II-XII intact bilaterally, moves all extremities and no focal motor deficits Sensorium / Orientation: awake and alert Motor Exam: strength 5/5 throughout Psych affect normal Assessment & Plan Assessment/Plan (1) Foot ulcer, left: (2) Cellulitis of left foot: PLAN: Plan #Nonhealing left foot ulcer * has a chronic left foot nonhealing ulcer. Had left great toe amputated. * has diabetic nephropathy and uncontrolled hyperglycemia. * on IV vancomycin and ceftriaxone as well as fluconazole * wound cultures from 12/07 grew Enterococcus fecalis and corynebacterium * podiatry and ID on board * MRI of left foot showed first digit with cellulitis at the site with a deep ulcer extending to the dorsal distal cortex of the first metatarsal bone with cortical osteitis and osteomyelitis of the head and neck of the first metatarsal bone. * wound care also on board. * for surgery tomorrow. * #CAD: on aspirin, metoprolol and satin. #HFpEF: not in exacerbation. Continue diuretics #Type 2 diabetes mellitus * poorly controlled * on lantus 35 units qhs as well as dulaglutide * ISS. Accuchecks ACHS * A1C is 7.2 * #Hypothyroidism; on synthroid. TSH is 5.08. Will check free T4 #Hypertension; on lisinopril. #COPD: not in exacerbation. Breathing treatment with bronchodilators #Hyperlipidemia: on statin #Depression; on mirtazapine and Abilify #DVT prophylaxis: heparin. Charges/Coding Visit Charges Inpatient E&M: 51610 Subs Hosp L2
[2021-12-15] MEDS: Ferrous Sulfate 325 MG Tablet PO (11:00)
[2021-12-15 11:25] LABS: Bedside Glucose 292 mg/dL (74-106)
--- NOTE | 2021-12-15 12:09 | CASEMGMT ---
Addendum entered by Erin Galo 12/15/21 12:22: CHRISTELLE WHEELER back into pt room to discuss home with HHC vs SNF. Pt is aware of limitations with the HHC and should she need daily complex dressing changes or IV atb she will need to go skilled s/t. Pt verbalizes understanding of this and states she would not want to return to TCU. Original Note: RN LIAM into pt room, pt sitting up in chair eating lunch. Pt reports the nurse at the [facility] was performing dressing changes prior to hospitalization. Pt has spoke with her insurance who made her aware that she may need skilled home health upon returning to [facility]. Discussed with pt that her [facility] has a HHC that they work with and pt would like this HHC to see her if needed. TC to [facility], spoke with executive officer Laura. She states their nurses in the [facility] can only do simple dressings. States if pt will need more than this, HHC will need to be ordered. They contract with [facility]. States the SN will only visit approx twice a week and their nurses could not do dressing in the meantime unless it is a simple dressing. Contact info for [facility] is [phone] Saniya Diane, [phone]. CHRISTELLE WHEELER to follow for wound care orders and needs post surgery. Updated SW.
[2021-12-15] MEDS: Vancomycin IV 1,000 MG/200 ML BAG 200 MG IV (13:34)
--- NOTE | 2021-12-15 13:50 | CASEMGMT ---
SW was informed patient would like to complete advance directives. Documents were completed with patient. Copies were made and given to patient along with originals. A copy was also placed in patient's chart. Clare DASILVA
[2021-12-15 14:14] LABS: Vancomycin, Trough Level 9.8 ug/mL (5.0-15.0)
--- NOTE | 2021-12-15 14:36 | PCM.RX.CS ---
Consult Type of Consult: Follow-up Suspected Infection: Skin/Soft tissue Labs: Sodium 139 mmol/L (136-145) 12/15/21 06:10 Potassium 4.5 mmol/L (3.5-5.1) 12/15/21 06:10 Chloride 108 mmol/L (98-107) H 12/15/21 06:10 Carbon Dioxide 24.0 mmol/L (21.0-32.0) 12/15/21 06:10 Anion Gap 7 (5-15) 12/15/21 06:10 BUN 16 mg/dL (7-18) 12/15/21 06:10 Creatinine 0.95 mg/dL (0.55-1.02) 12/15/21 06:10 Est GFR (MDRD) Af Amer 76 mL/min (>60) 12/15/21 06:10 Est GFR (MDRD) Non-Af 63 mL/min (>60) 12/15/21 06:10 BUN/Creatinine Ratio 16.9 RATIO (-) 12/15/21 06:10 Glucose 211 mg/dL (74-106) H 12/15/21 06:10 Vancomycin Trough 9.8 ug/mL (5.0-15.0) 12/15/21 13:30 Microbiology: Microbiology 12/13/21 19:15 Wound Drainage - Toe Gram Stain - Final 12/13/21 19:15 Wound Drainage - Toe Wound Culture - Preliminary Gram positive marita 12/13/21 13:40 Blood Culture (Wb) - Right Wrist Blood Culture - Preliminary No growth in 48 hours. 12/13/21 14:05 Blood Culture (Wb) - Anticubital Left Blood Culture - Preliminary No growth in 48 hours. Goal Trough: 15-20 mcg/mL Pharmacy Plan for Drug Dosing: VANCOMYCIN LEVEL RECEIVED Current Vancomycin Dose: 1000mg Q24H Number of Doses Received: 2 (1 x 1000mg, 1 x 1500mg) Vancomycin Level: 9.8 Hours Since Last Dose: 23.25 Renal Function: sCr 0.95 and CrCl ~ 70 ml/min Renal Function Trend: slightly improved Lab/Micro: wound cx grew E. faecalis and corynebacterium Vancomycin Plan/Comments: Increase Vancomycin dosing regimen to 750mg Q12H. Pt also receiving ceftriaxone and fluconazole. Plan surgery for 12/16/21. Pending Level: Vancomycin trough @ 0030 12/17/21 (may need to be adjusted based on surgery timing and dose administration) Pharmacy Service will continue to monitor and adjust dosing as required. Labs to be done on [date and time ordered]: Vancomycin trough @ 2912/17/21
[2021-12-15 16:25] LABS: Bedside Glucose 256 mg/dL (74-106)
[2021-12-15] MEDS: traZODone 100 MG Tablet PO (21:44)
[2021-12-15] MEDS: ARIPiprazole 10 MG Tablet PO (21:44)
[2021-12-15] MEDS: Insulin Glargine-YFGN 100 UNIT/ML Pen 35 UNIT SC (21:45)
[2021-12-15] MEDS: Montelukast 10 MG Tablet PO (21:46)
[2021-12-15] MEDS: Atorvastatin Calcium 40 MG Tablet PO (21:46)
[2021-12-15 22:31] LABS: Bedside Glucose 223 mg/dL (74-106)
[2021-12-16] VITALS (14 sets, daily range): BP systolic 106–173; BP diastolic 52–91; PULSE 72–93; RESP 16–18; TEMP 36.1–36.8; O2SAT 94–100; BMI 36.8
[2021-12-16] MEDS: Nystatin Powder 15gm Bottle 1 APPLIC TOPICAL ×2 (05:24→21:25)
[2021-12-16 06:42] LABS: Absolute Lymphocyte Count 1.42 X10^3/uL (0.83-4.51); Absolute Neutrophil Count 4.4 X10^3/uL (2.0-7.7); Basophil# 0.05 X10^3/uL; Basophil% 0.8 % (0-1); Eosinophil# 0.19 X10^3/uL; Eosinophils% 2.9 % (0-5); Hematocrit 30.5 % (37-47); Hemoglobin 9.5 g/dL (12.0-15.0); Lymphocyte # 1.42 X10^3/ul (0.83-4.51); Lymphocyte % 21.6 % (19-41); Mean Corp Hgb Conc 31.1 g/dL (32-36); Mean Corpuscular Hgb 28.2 pg (27.0-32.0); Mean Corpuscular Volume 90.5 fL (81-99); Mean Platelet Vol. 11.9 fl (6.2-12.0); Monocyte# 0.53 X10^3/uL; Monocyte% 8.1 % (0-10); NRBC Flagged by Analyzer 0 % (0-5); Neutrophil # 4.35 X10^3/uL (2.7-7.7); Neutrophil % 66.3 % (47-70); POSITIVE COUNT YES; Platelet Count 137 K/mm3 (150-450); RBC Distribution Width CV 16.2 % (11.6-14.6); RBC Distribution Width SD 53.6 fl (35.1-43.9); Red Blood Count 3.37 M/mm3 (4.2-5.4); White Blood Count 6.6 K/mm3 (4.4-11.0)
[2021-12-16 06:43] LABS: Differential Indicated SCAN CRITERIA MET
[2021-12-16 06:47] LABS: International Normalized Ratio 1.1; Prothrombin Time (Protime)PT. 13.9 SECONDS (11.7-14.9)
[2021-12-16 06:48] LABS: Partial Thromboplast Time 30.1 Seconds (24.1-36.2)
[2021-12-16 07:10] LABS: Platelet Estimate SLT DEC (ADEQ)
[2021-12-16 07:11] LABS: Anisocytosis 1+
[2021-12-16 07:39] LABS: Anion Gap 6 (5-15); BUN 20 mg/dL (7-18); BUN/Creat Ratio 22.5 RATIO (10-20); Calcium,Total 9.6 mg/dL (8.5-10.1); Chloride 109 mmol/L (98-107); Creatinine, Serum 0.89 mg/dL (0.55-1.02); EST Glomerular Filtration Rate 68 mL/min (>60); Est Glom Filt Rate - Afr Amer 82 mL/min (>60); Estimated Creatinine Clearance 56.71 ml/min; Glucose 187 mg/dL (74-106); Potassium 4.3 mmol/L (3.5-5.1); Sodium Level 142 mmol/L (136-145); Thyroid Stim Hormone (TSH) 3.17 uIU/mL (0.358-3.74)
[2021-12-16 07:41] LABS: Hemoglobin A1c 7.5 % (3.8-5.6)
--- NOTE | 2021-12-16 08:09 | WOUNDNOTE ---
Dressings to bilateral feet are D&I. patient is going for surgery later today so will leave dressings in place. the redness to bilateral shins improved today. asked patient about plan at discharge. states her plan is to return to [facility], but did state that if she needed to go to a care home for a short time she would only agree to go to [place]. will discuss with Case Management.
[2021-12-16] MEDS: Metoprolol(XL)Succ 50 MG Tablet PO ×2 (09:46→21:26)
[2021-12-16 10:11] LABS: Bedside Glucose 216 mg/dL (74-106)
--- NOTE | 2021-12-16 10:19 | PN.HOSP_ITS ---
Subjective Subjective Patient seen and examined. SHe complained of some mild pain in her left foot, but had no other complaints. She is due for surgery of the left foot today by podiatry. Review of systems is otherwise negative. Objective Data Objective Data Vital Signs: Vital Signs Temp Pulse Resp BP Pulse Ox O2 Del Method O2 Flow Rate 97.9 F 84 18 149/91 H 97 Nasal Cannula 3 12/16/21 08:20 12/16/21 09:46 12/16/21 08:20 12/16/21 09:46 12/16/21 09:27 12/16/21 09:27 12/16/21 09:27 Oxygen Flow Rate (L/min) 3 Oxygen Delivery Method Nasal Cannula Weight: 221 lb 9.033 oz Body Mass Index (BMI) 36.8 Intake & Output: Intake and Output for Last 24 Hours 12/14/21 12/15/21 12/16/21 23:59 23:59 23:59 Intake Total 1250 / 1950 2150 / 2750 865 / 865 Output Total 1750 / 2200 1500 / 2200 950 / 950 Balance -500 / -250 650 / 550 -85 / -85 Lab / Micro Data Result Diagrams: 12/16/21 05:40 12/16/21 05:40 Labs: Laboratory Results - last 24 hr 12/15/21 10:58: POC Glucose 292 H 12/15/21 13:30: Vancomycin Trough 9.8 12/15/21 15:53: POC Glucose 256 H 12/15/21 21:41: POC Glucose 223 H 12/16/21 05:40: WBC 6.6, RBC 3.37 L, Hgb 9.5 L, Hct 30.5 L, MCV 90.5, MCH 28.2, MCHC 31.1 L, RDW Std Deviation 53.6 H, RDW Coeff of Magen 16.2 H, Plt Count 137 L, MPV 11.9, Immature Gran % (Auto) 0.300, Neut % (Auto) 66.3, Lymph % (Auto) 21.6, [place] % (Auto) 8.1, Eos % (Auto) 2.9, Baso % (Auto) 0.8, Absolute Neuts (auto) 4.4, Absolute Lymphs (auto) 1.42, Nucleated RBC % 0, Platelet Estimate SLT DEC, Anisocytosis 1+ 12/16/21 05:40: Sodium 142, Potassium 4.3, Chloride 109 H, Carbon Dioxide 27.0, Anion Gap 6, BUN 20 H, Creatinine 0.89, Estim Creat Clear Calc 56.71, Est GFR (MDRD) Af Amer 82, Est GFR (MDRD) Non-Af 68, BUN/Creatinine Ratio 22.5 H, Glucose 187 H, Calcium 9.6, TSH 3.17 12/16/21 05:40: PT 13.9, INR 1.1, APTT 30.1 12/16/21 05:40: Hemoglobin A1c 7.5 H 12/16/21 09:14: POC Glucose 216 H Micro: Microbiology 12/13/21 19:15 Wound Drainage - Toe Gram Stain - Final 12/13/21 19:15 Wound Drainage - Toe Wound Culture - Preliminary Corynebacterium striatum 12/13/21 19:15 Wound Drainage - Toe Anaerobic Culture - Preliminary Checking for anaerobes, further studies to follow. 12/13/21 13:40 Blood Culture (Wb) - Right Wrist Blood Culture - Preliminary No growth in 48 hours. 12/13/21 14:05 Blood Culture (Wb) - Anticubital Left Blood Culture - Preliminary No growth in 48 hours. Physical Exam Const alert, oriented x3 and no apparent distress HEENT head/scalp atraumatic, moist oral mucous membranes and oropharynx normal Head and Scalp: normocephalic Mouth: oral and palatal mucosa normal Eyes PERRL, EOMs intact bilaterally and conjunctivae normal Neck no lymphadenopathy and supple Resp normal respiratory effort, no retractions, no use of accessory muscles and clear to auscultation bilaterally Cardio regular rate, regular rhythm, S1 normal heart sound, S2 normal heart sound and no murmurs GI normal to inspection, nondistended, normoactive bowel sounds, soft to palpation, non-tender and non-distended Extremity Extremity Narrative: right foot partially wrapped in bandage. Left foot also wrapped in bandage Neuro oriented x3, CN's II-XII intact bilaterally, moves all extremities and no focal motor deficits Sensorium / Orientation: awake and alert Motor Exam: strength 5/5 throughout Psych affect normal Assessment & Plan Assessment/Plan (1) Foot ulcer, left: (2) Cellulitis of left foot: PLAN: Plan #Nonhealing left foot ulcer * has a chronic left foot nonhealing ulcer. Had left great toe amputated. * has diabetic nephropathy and uncontrolled hyperglycemia. * on IV vancomycin and ceftriaxone as well as fluconazole * wound cultures from 12/07 grew Enterococcus fecalis and corynebacterium * podiatry and ID on board * MRI of left foot showed first digit with cellulitis at the site with a deep ulcer extending to the dorsal distal cortex of the first metatarsal bone with cortical osteitis and osteomyelitis of the head and neck of the first metat arsal bone. * wound care also on board. * for surgery today by podiatry * #CAD: on aspirin, metoprolol and satin. #HFpEF: not in exacerbation. Continue diuretics #Type 2 diabetes mellitus * poorly controlled * on lantus 35 units qhs as well as dulaglutide * ISS. Accuchecks ACHS * A1C is 7.2 * #Hypothyroidism; on synthroid. TSH rechecked was 3.17, which is WNL #Hypertension; on lisinopril. #COPD: not in exacerbation. Breathing treatment with bronchodilators #Hyperlipidemia: on statin #Depression; on mirtazapine and Abilify #DVT prophylaxis: heparin. Charges/Coding Visit Charges Inpatient E&M: 21896 Subs Hosp L2
[2021-12-16] MEDS: Insulin Lispro 100 UNIT/ML INSULN.PEN SC ×2 (10:38→21:24)
[2021-12-16] MEDS: Lactated Ringers 1,000 ML 15 ML IV (10:53)
--- NOTE | 2021-12-16 12:11 | PCM.PN.ID ---
Physical Exam Narrative Feeling better, OR today. No fever, no n/v/d. Mild L foot pain. Const alert and no apparent distress Resp normal air movement and clear to auscultation bilaterally Cardio regular rate and regular rhythm GI soft to palpation, non-tender and non-distended Skin Skin Narrative: feet wrapped ID ID: Route of nutrition/ use of supplements: [] Nutritional Intake: [] IV Site: [] Knight Catheter: [] Assessment & Plan Assessment/Plan (1) Foot osteomyelitis, left: PLAN: S/p L hallux amp 10/21/[address] No. Surg cx at that time with proteus. Wound cx now with corynebacter, e faecalis, and yeast. On vanc/ceftriaxone/fluc. Podiatry plan is for OR today. Will follow
[2021-12-16 13:35] LABS: Bedside Glucose 190 mg/dL (74-106)
--- NOTE | 2021-12-16 14:15 | BON_PTH ---
PATIENT: SONA WILSON LOC: MS3 U#:[id number] AGE/SX: 66/F ROOM: TN311 RE12/13/[address]: Dr. Christophe Corbin DO : 1955 BED: 1 DIS: 12/21/2021 SPEC #: [id number] RECD: 12/19/21 12:29 STATUS: ANNIKA REQ #: [id number] ACE: 12/16/21 14:[address]: Noah No DEPT: SURGICAL PATHOLOGY RECD BY: Fransisca Clark ENTERED: 12/19/21 12:43 SP TYPE: Bone OTHR DR: Dr. Noah No, DPM DO Dr. Quynh Lyle MD Dr. Prakash Chand, MD Dr. Robert Leininger, MD Tamara Faith Howard, MANAGER TITLE-C Tissues: A - Toe, NOS B - Toe, NOS C - Toe, NOS Procedures: Decalcification bone/plaque Surgery Specimen Level IV Comments: @ Ordering doctor for DEC edited from to DR.MMARS Bette SCHAFER at 12/19/21 142 @ Ordering doctor for SUIV edited from to DR.MMARS Bette SCHAFER at 12/19/21 142 @ Submitting doctor edited from to DR.MMARS Bette SCHAFER at 12/19/21 1423 HEADER OPERATION: Partial first ray resection PRE-OP DIAGNOSIS: Left foot osteomyelitis, left foot ulcer TISSUE SUBMITTED: A - First metatarsal tissue left foot, B - First metatarsal bone left foot, C - Clearance fragment left first metatarsal MICROSCOPIC DIAGNOSIS A. Skin and tissue of first metatarsal, left foot, excision: Ulceration with associated acute and chronic inflammation and granulation. B. First metatarsal bone, left foot, excision: Reactive and reparative change. No evidence of osteomyelitis. C. Clearance fragment left first metatarsal, biopsy: Focal reparative and reactive change. Calcifications of vessel santana. No evidence of osteomyelitis. AM:maria de jesus 12/22/2021 MICROSCOPIC DESCRIPTION Slides are reviewed. GROSS DESCRIPTION A - Received in fixative is one container labeled with the patient's name and designated first metatarsal tissue left foot. The specimen consists of multiple irregular fragments of skin and indurated soft tissue that in aggregate measure 5 x 3 x 1 cm. Guidance Consultant sections are submitted in one cassette. B - Received in fixative is one container labeled with the patient's name and designated first metatarsal bone left foot. The specimen consists of two irregular fragments of huang bone measuring 4.5 x 2.5 x 2 cm. Also present in the specimen container is light huang tendinous tissue measuring 3 x 0.5 x 0.2 cm. Guidance Consultant sections are submitted in one cassette after decalcification. C - Received in fixative is one container labeled with the patient's name and designated clearance fragment left first metatarsal. The specimen consists of an irregular fragment of huang bone measuring 1.7 x 1 x 1 cm. The specimen is sectioned and totally submitted in one cassette after decalcification. / AM:maria de jesus 12/19/2021 TC:5 CPT: 48420 x3, 28832 x2
--- NOTE | 2021-12-16 14:39 | RAD_ITS ---
INDICATION: PARTIAL FIRST RAY RESECTION EXAMINATION/TECHNIQUE: X-RAY - LEFT XR Foot Min 3 Views 4 VIEWS COMPARISON: 12/13/2021 FINDINGS: 4 fluoroscopic spot films obtained intraoperatively show resection of the distal half of the first metatarsal. Total fluoroscopic time: 5.8 seconds RAD/Foot min 3 Views IMPRESSION: Partial first ray resection. Electronically Signed: Rush Presley MD at 16:34 EDT ,
[2021-12-16] MEDS: Bupivacaine 0.25% 30 ML Vial (14:44)
[2021-12-16] MEDS: Lidocaine 1% (30 ml sdv) 30 ML Vial (14:44)
--- NOTE | 2021-12-16 16:30 | RAD_ITS ---
INDICATION: post op EXAMINATION/TECHNIQUE: X-RAY - LEFT XR Foot Min 3 Views 3 VIEWS COMPARISON: 12/13/2021 FINDINGS: Interval resection of the first ray from the mid first metatarsal. Focal skin defect at the resection site. No other interval change. RAD/Foot min 3 Views IMPRESSION: Status post partial resection first ray. Electronically Signed: Rush Presley MD at 16:55 EDT ,
--- NOTE | 2021-12-16 17:12 | OP.PCM_ITS ---
Report of Operation Date of Procedure: 12/16/21 Pre-Operative Diagnosis: 1. Osteomyelitis first metatarsal head left foot 2.Chronic ulceration left foot Post-Operative Diagnosis: 1. Osteomyelitis first metatarsal head left foot 2. Chronic ulceration left foot Surgery/Procedure Performed:: Partial first ray resection left foot Description of Surgical Findings:: See operative note for findings Surgeon: Noah No feeder worker power unit operator: Calixto Garcia D.P.M. PGY 1 Type of Anesthesia: Local (20 cc 1:1 mixture of 1% lidocaine plain and 0.25% Marcaine plain) and MAC Specimen's removed: Necrotic tissue first metatarsal left foot; necrotic bone first metatarsal left foot; bone first metatarsal left foot Drains: None Estimated Blood Loss (mL): <10 mL Description of Procedure: HPI/indication: Patient is a 66-year-old female who was admitted by way of squad to the [facility] ED for a wound to the dorsal aspect of the first metatarsal head and cellulitis of bilateral lower extremities. Patient had previously undergone hallux amputation secondary to osteomyelitis of the proximal phalanx head on 10/21/2021. Patient was closely followed at that time during postoperative period and was healing well. Sutures were removed and patient had a bout of confusion/dementia dropping a lunch tray on the amputated stump causing the site to reopen. During this bout of confusion she proceeded to continue to ambulate without the postoperative shoe leading to further dehiscence of her wound site. Patient was placed into a [place] [facility] facility following her discharge and was lost to follow-up due to transportation issues. Upon her presentation to the [facility] ED on 12/13/2021 she demonstrated a dry necrotic wound with exposure of bone of the first metatarsal head. Radiographs were obtained of the left foot and were suspicious of osteomyelitis. MRI was obtained confirming osteomyelitis of the dorsal distal first metatarsal with periostitis extending into the metatarsal neck without abscess formation. Patient was placed empirically on IV Vanco and Zosyn. Infectious disease saw patient and she was started on Vanco/ceftriaxone and fluconazole. I discussed with patient the findings on MRI pertaining to osteomyelitis of the first metatarsal head. I discussed with her that this poses a continued infection risk/progression of the osteomyelitis to the surrounding bones. I discussed the infection may worsen in nature due to her diabetes and she could pose a risk of loss of limb or loss of life if not addressed surgically. I discussed partial first ray resection with her today as a salvage procedure to save the foot and prevent further deterioration and progression of infection. Patient was in agreement with this plan and feels it is necessary to save her foot. I discussed the risk and benefits of this procedure in detail I discussed the anticipated healing time and management. The patient understands that this is a limb salvage procedure and elects to proceed with surgery at this time. No guarantees were made. Patient is aware of the risks and complications include but are not limited to the following: Pain, continued pain, CRPS, swelling, scarring, transfer lesions, delayed healing, nonhealing, infection, blood clot, need for further surgery, allergic reaction, addiction to pain medication, loss of limb, loss of function, loss of life. I answered all the patient's questions. Patient was consented for partial ray resection. Patient signed consent freely. Patient was scheduled to undergo partial first ray resection on 12/16/2021. Operative limb was marked. Procedure: Under mild sedation patient was brought into the operating room placed on the table in supine position. Following induction of IV anesthesia a pneumatic thigh tourniquet was placed about the patient's left thigh. At this time a complete ankle block was performed about the patient's left ankle consisting of 20 cc 1:1 mixture of 1% lidocaine plain and 0.25% Marcaine plain. The foot was then scrubbed, prepped, and draped in the usual aseptic manner. The left leg was then elevated and the pneumatic thigh tourniquet was inflated to 300 mmHg. At this time attention was directed to the left foot first metatarsal where there was a chronic ulceration with black and necrotic tissue with exposure of the first metatarsal head dorsally within the wound base. The portion of bone that was visible was noted to be dark and in color and soft consistent with osteomyelitis. Fluoroscopic images were obtained in multiple views prior to incision. A linear incision was made proximally overlying the first metatarsal shaft and extended distally into a dorsal racquet incision encompassing the necrotic tissue overlying the exposed bone of the first metatarsal head. The ulceration was excised in toto from the site. Ulceration and surrounding necrotic tissue was debrided down to the level of the first metatarsal head. This tissue and ulcer were collected for culture and sent to microbiology and the remaining half sent to pathology for analysis. The incision was then deepened to bone freeing up and exposing the first metatarsal at the operative field. There was no encountered purulent drainage or abscess formation through the duration of this case. The head and neck of the first metatarsal were noted to be cartwright, discolored, and soft consistent with osteomyelitis of the first metatarsal head. A sagittal saw was utilized to transect the head of the first metatarsal at the surgical neck. This bone was transected for culture with half sent to microbiology and the remaining half sent to pathology for analysis. The remaining portion first metatarsal was transected utilizing the sagittal saw at a hard portion of bone at the distal shaft. The sesamoid bones were sharply dissected free and sent to pathology for analysis. At this time all necrotic tissue had been debrided to healthy viable tissue. The site was copiously irrigated with a 3000 mL pulse lavage. Next fresh sterile surgical instruments were used throughout the duration of this case, new gloves were donned, and the sagittal saw blade was changed. The remaining portion of the first metatarsal was noted to be hard and healthy in color. Next utilizing the sagittal saw the first metatarsal was transected back to the distal third of the shaft through a hard viable bone and cultured as a clearance fragment. The clearance fragment was transected with fresh instrumentation with half being sent to microbiology and the remaining half to pathology for analysis. The extensor and flexor tendons were identified and transected as far proximal as possible. Next the site again was irrigated copiously with normal sterile saline. The surrounding skin was remodeled for an aesthetically pleasing closure. The deep structures were then closed with 4-0 Monocryl. The skin was reapproximated with 3-0 Prolene. At this time the pneumatic thigh tourniquet was deflated and a prompt hyperemic response was noted to the digits of the left foot. The site was dressed with Betadine soaked Adaptic, 4 x 4 gauze, Kerlix, ABD, Kerlix, and an Kenny wrap rolled onto the foot. Patient tolerated the procedure and anesthesia well and was transferred to PACU with vital signs stable and vascular status intact to the left foot. Once anesthesia protocol was met patient will return to floor to continue to receive IV antibiotics. She is to remain nonweightbearing to the left foot with surgical shoe and the assistance of a walker or wheelchair. She is to keep dressings clean, dry, and intact to the left foot. I will continue to follow patient. Grafts/Implants Used: None Complications None Admit VTE Documentation VTE Present on Admission: No VTE Mechan Device Prophylaxis: SCD's VTE Pharm Prophylaxis ordered?: No Reason prophylaxis not ordered:: Procedure Not Indicated
[2021-12-16] MEDS: Juven (unflavored) Packet 1 PACKET PO (17:40)
[2021-12-16] MEDS: Glucerna Shake 120 ML LIQUID PO (17:41)
[2021-12-16] MEDS: Insulin Lispro 100 UNIT/ML INSULN.PEN 10 UNIT SC (17:49)
[2021-12-16 18:10] LABS: Bedside Glucose 168 mg/dL (74-106)
[2021-12-16] MEDS: traZODone 100 MG Tablet PO (21:24)
[2021-12-16] MEDS: Insulin Glargine-YFGN 100 UNIT/ML Pen 35 UNIT SC (21:24)
[2021-12-16] MEDS: Heparin Injection (Vial) 5,000 UNIT/ML VIAL 5000 UNIT SC (21:24)
[2021-12-16] MEDS: ARIPiprazole 10 MG Tablet PO (21:24)
[2021-12-16] MEDS: Atorvastatin Calcium 40 MG Tablet PO (21:25)
[2021-12-16] MEDS: Ketorolac 15 MG/ML Vial IV (21:26)
[2021-12-16] MEDS: Montelukast 10 MG Tablet PO (21:26)
[2021-12-16] MEDS: Senna/Docusate Sodium 1 Tablet PO (21:26)
[2021-12-16] MEDS: Pantoprazole Sodium 40 MG Tablet PO (21:26)
[2021-12-16] MEDS: Gabapentin 100 MG Capsule 200 MG PO (21:35)
[2021-12-16 22:56] LABS: Bedside Glucose 240 mg/dL (74-106)
[2021-12-17] VITALS (9 sets, daily range): BP systolic 134–158; BP diastolic 57–85; PULSE 78–92; RESP 16–18; TEMP 36.3–36.8; O2SAT 95–100
[2021-12-17 00:41] LABS: Vancomycin, Trough Level 19.1 ug/mL (5.0-15.0)
[2021-12-17] MEDS: Acetaminophen 325 MG Tablet 650 MG PO ×2 (01:35→10:51)
--- NOTE | 2021-12-17 02:42 | PCM.RX.CS ---
Consult Pharmacy has been consulted to manage selected antiobiotic: Vancomycin Type of Consult: Follow-up Labs: Sodium 142 mmol/L (136-145) 12/16/21 05:40 Potassium 4.3 mmol/L (3.5-5.1) 12/16/21 05:40 Chloride 109 mmol/L (98-107) H 12/16/21 05:40 Carbon Dioxide 27.0 mmol/L (21.0-32.0) 12/16/21 05:40 Anion Gap 6 (5-15) 12/16/21 05:40 BUN 20 mg/dL (7-18) H 12/16/21 05:40 Creatinine 0.89 mg/dL (0.55-1.02) 12/16/21 05:40 Est GFR (MDRD) Af Amer 82 mL/min (>60) 12/16/21 05:40 Est GFR (MDRD) Non-Af 68 mL/min (>60) 12/16/21 05:40 BUN/Creatinine Ratio 22.5 RATIO (10-20) H 12/16/21 05:40 Glucose 187 mg/dL (74-106) H 12/16/21 05:40 Vancomycin Trough 19.1 ug/mL (5.0-15.0) H 12/17/21 00:20 Microbiology: Microbiology 12/13/21 19:15 Wound Drainage - Toe Gram Stain - Final 12/13/21 19:15 Wound Drainage - Toe Wound Culture - Preliminary Corynebacterium striatum Yeast, not Jennifer albicans Gram Positive Cocci 12/13/21 19:15 Wound Drainage - Toe Anaerobic Culture - Preliminary Checking for anaerobes, further studies to follow. 12/13/21 13:40 Blood Culture (Wb) - Right Wrist Blood Culture - Preliminary No growth in 48 hours. 12/13/21 14:05 Blood Culture (Wb) - Anticubital Left Blood Culture - Preliminary No growth in 48 hours. Goal Trough: 15-20 mcg/mL Pharmacy Plan for Drug Dosing: Pharmacy Service will continue to monitor and adjust dosing as required. TROUGH 19.1 @ 11 HRS. NO CHANGES, FOLLOW UP TROUGH IN 2 DAYS Follow-Up Labs: Trough Vancomycin Labs to be done on [date and time ordered]: 12/19 @ 0030
[2021-12-17] MEDS: Ketorolac 15 MG/ML Vial IV (04:39)
[2021-12-17] MEDS: Nystatin Powder 15gm Bottle 1 APPLIC TOPICAL ×3 (06:35→21:47)
[2021-12-17] MEDS: Gabapentin 100 MG Capsule 200 MG PO ×3 (06:35→21:47)
[2021-12-17] MEDS: Levothyroxine 100 MCG Tablet PO (06:36)
[2021-12-17 07:14] LABS: Absolute Lymphocyte Count 0.86 X10^3/uL (0.83-4.51); Absolute Neutrophil Count 4.9 X10^3/uL (2.0-7.7); Basophil# 0.05 X10^3/uL; Basophil% 0.8 % (0-1); Eosinophil# 0.15 X10^3/uL; Eosinophils% 2.3 % (0-5); Hemoglobin 8.6 g/dL (12.0-15.0); Lymphocyte # 0.86 X10^3/ul (0.83-4.51); Lymphocyte % 13.2 % (19-41); Mean Corp Hgb Conc 31.9 g/dL (32-36); Mean Corpuscular Hgb 28.6 pg (27.0-32.0); Mean Corpuscular Volume 89.7 fL (81-99); Monocyte# 0.55 X10^3/uL; Monocyte% 8.4 % (0-10); NRBC Flagged by Analyzer 0 % (0-5); Platelet Count 148 K/mm3 (150-450); RBC Distribution Width CV 16.1 % (11.6-14.6); RBC Distribution Width SD 53.1 fl (35.1-43.9); Red Blood Count 3.01 M/mm3 (4.2-5.4); White Blood Count 6.5 K/mm3 (4.4-11.0)
[2021-12-17 07:45] LABS: Anion Gap 4 (5-15); BUN 26 mg/dL (7-18); BUN/Creat Ratio 24.5 RATIO (10-20); Calcium,Total 9.1 mg/dL (8.5-10.1); Chloride 105 mmol/L (98-107); Creatinine, Serum 1.06 mg/dL (0.55-1.02); EST Glomerular Filtration Rate 55 mL/min (>60); Est Glom Filt Rate - Afr Amer 67 mL/min (>60); Estimated Creatinine Clearance 47.61 ml/min; Glucose 289 mg/dL (74-106); Potassium 4.8 mmol/L (3.5-5.1); Sodium Level 136 mmol/L (136-145)
[2021-12-17] MEDS: Insulin Lispro 100 UNIT/ML INSULN.PEN 10 UNIT SC ×3 (08:40→17:01)
[2021-12-17] MEDS: Insulin Lispro 100 UNIT/ML INSULN.PEN SC ×4 (08:41→22:00)
[2021-12-17] MEDS: Juven (unflavored) Packet 1 PACKET PO ×2 (08:42→17:02)
[2021-12-17] MEDS: Fluconazole 100 MG Tablet 200 MG PO (08:42)
[2021-12-17] MEDS: Aspirin E.C. 81 MG Tablet PO (08:43)
[2021-12-17] MEDS: Pantoprazole Sodium 40 MG Tablet PO ×2 (08:43→21:50)
[2021-12-17] MEDS: Senna/Docusate Sodium 1 Tablet PO ×2 (08:43→21:50)
[2021-12-17] MEDS: Metoprolol(XL)Succ 50 MG Tablet PO ×2 (08:45→21:57)
[2021-12-17 09:16] LABS: Bedside Glucose 257 mg/dL (74-106)
--- NOTE | 2021-12-17 10:11 | PN.HOSP_ITS ---
Subjective Subjective Patient seen and examined. She had no complaints. Her pain was well controlled. She is pOD 1 for partial first ray resection of left foot. REview of systems is otherwise negative. Objective Data Objective Data Vital Signs: Vital Signs Temp Pulse Resp BP Pulse Ox O2 Del Method O2 Flow Rate 97.3 F L 82 18 142/67 H 100 Nasal Cannula 3.5 12/17/21 09:00 12/17/21 09:00 12/17/21 09:00 12/17/21 09:00 12/17/21 09:00 12/17/21 09:00 12/17/21 09:44 Oxygen Flow Rate (L/min) 3.5 Oxygen Delivery Method Nasal Cannula Weight: 221 lb 9.033 oz Body Mass Index (BMI) 36.8 Intake & Output: Intake and Output for Last 24 Hours 12/15/21 12/16/21 12/17/21 23:59 23:59 23:59 Intake Total 2150 / 2750 1180 / 1720 1205 / 1205 Output Total 1500 / 2200 950 / 1250 300 / 300 Balance 650 / 550 230 / 470 905 / 905 Lab / Micro Data Result Diagrams: 12/17/21 06:35 12/17/21 06:35 Labs: Laboratory Results - last 24 hr 12/16/21 09:14: POC Glucose 216 H 12/16/21 13:18: POC Glucose 190 H 12/16/21 17:47: POC Glucose 168 H 12/16/21 21:21: POC Glucose 240 H 12/17/21 00:20: Vancomycin Trough 19.1 H 12/17/21 06:35: WBC 6.5, RBC 3.01 L, Hgb 8.6 L, Hct 27.0 L, MCV 89.7, MCH 28.6, MCHC 31.9 L, RDW Std Deviation 53.1 H, RDW Coeff of Magen 16.1 H, Plt Count 148 L, MPV 11.0, Immature Gran % (Auto) 0.300, Neut % (Auto) 75.0 H, Lymph % (Auto) 13.2 L, [place] % (Auto) 8.4, Eos % (Auto) 2.3, Baso % (Auto) 0.8, Absolute Neuts (auto) 4.9, Absolute Lymphs (auto) 0.86, Nucleated RBC % 0 12/17/21 06:35: Sodium 136, Potassium 4.8, Chloride 105, Carbon Dioxide 27.0, Anion Gap 4 L, BUN 26 H, Creatinine 1.06 H, Estim Creat Clear Calc 47.61, Est GFR (MDRD) Af Amer 67, Est GFR (MDRD) Non-Af 55 L, BUN/Creatinine Ratio 24.5 H, Glucose 289 H, Calcium 9.1 12/17/21 08:39: POC Glucose 257 H Micro: Microbiology 12/16/21 Unknown Tissue - Great Toe Gram Stain - Final 12/16/21 Unknown Tissue - Great Toe Wound Culture - Preliminary Gram positive organism Gram positive organism#2 12/16/21 Unknown Tissue - Great Toe Gram Stain - Final 12/16/21 Unknown Tissue - Great Toe Wound Culture - Preliminary No growth-Final to follow 12/16/21 Unknown Bone - Great Toe Gram Stain - Final 12/13/21 19:15 Wound Drainage - Toe Gram Stain - Final 12/13/21 19:15 Wound Drainage - Toe Wound Culture - Preliminary Corynebacterium striatum Yeast, not Jennifer albicans Gram Positive Cocci 12/13/21 19:15 Wound Drainage - Toe Anaerobic Culture - Final No anaerobic bacteria isolated. 12/13/21 13:40 Blood Culture (Wb) - Right Wrist Blood Culture - Preliminary No growth in 48 hours. 12/13/21 14:05 Blood Culture (Wb) - Anticubital Left Blood Culture - Preliminary No growth in 48 hours. Radiography Diagnostic Testing: Radiology Impression Foot X-Ray 12/16/21 14:39 IMPRESSION: Partial first ray resection. Electronically Signed: Rush Presley MD at 16:34 EDT , Foot X-Ray 12/16/21 16:30 IMPRESSION: Status post partial resection first ray. Electronically Signed: Rush Presley MD at 16:55 EDT , Physical Exam Const alert, oriented x3 and no apparent distress HEENT head/scalp atraumatic, moist oral mucous membranes and oropharynx normal Head and Scalp: normocephalic Mouth: oral and palatal mucosa normal and dry mucous membranes Eyes PERRL, EOMs intact bilaterally and conjunctivae normal Neck no lymphadenopathy and supple Resp normal respiratory effort, no retractions, no use of accessory muscles and clear to auscultation bilaterally Cardio regular rate, regular rhythm, S1 normal heart sound, S2 normal heart sound and no murmurs GI normal to inspection, nondistended, normoactive bowel sounds, soft to palpation, non-tender and non-distended Extremity Extremity Narrative: right foot partially wrapped in bandage. Left foot also wrapped in bandage Neuro oriented x3, CN's II-XII intact bilaterally, moves all extremities and no focal motor deficits Sensorium / Orientation: awake and alert Motor Exam: strength 5/5 throughout Psych affect normal Assessment & Plan Assessment/Plan (1) Foot ulcer, left: (2) Cellulitis of left foot: PLAN: Plan #Nonhealing left foot ulcer * s/p partial ray resectin of left foot first metatarsal. today is POD 1 * has a chronic left foot nonhealing ulcer. Had left great toe amputated. * has diabetic nephropathy and uncontrolled hyperglycemia. * on IV vancomycin and ceftriaxone as well as fluconazole * wound cultures from 12/07 grew Enterococcus fecalis and corynebacterium * podiatry and ID on board * MRI of left foot showed first digit with cellulitis at the site with a deep ulcer extending to the dorsal distal cortex of the first metatarsal bone with cortical osteitis and osteomyelitis of the head and neck of the first metatarsal bone. * wound care also on board. * bone cultures pending * #CAD: on aspirin, metoprolol and satin. #HFpEF: not in exacerbation. Continue diuretics #Type 2 diabetes mellitus * poorly controlled * on lantus 35 units qhs as well as dulaglutide * ISS. Accuchecks ACHS * A1C is 7.2 * #Hypothyroidism; on synthroid. TSH rechecked was 3.17, which is WNL #Hypertension; on lisinopril. #COPD: not in exacerbation. Breathing treatment with bronchodilators #Hyperlipidemia: on statin #Depression; on mirtazapine and Abilify #DVT prophylaxis: heparin. Charges/Coding Visit Charges Inpatient E&M: 08323 Subs Hosp L2
[2021-12-17] MEDS: Heparin Injection (Vial) 5,000 UNIT/ML VIAL 5000 UNIT SC ×2 (10:51→21:48)
--- NOTE | 2021-12-17 11:22 | CM.UR ---
Social Work SW met w/pt in room to review discharge plan. Pt continues to say she would like to go back to [facility] if possible. However she did also state having a difficult time maintaining non weight bearing status. She states however that she just started working w/PT. We discussed the possibility of SNF if needed. SW did provide to pt a list, from [facility], of shelter facilities in pt's insurance network complete with quality and resource use data in pt's preferred network. Pt states she would likely want [facility], but did want to review the list. SW explained that SW will follow up w/her Sunday to discuss if she can return to [facility] or if SNF may be beneficial for pt. SW will continue to follow. NATAN Oconnell
[2021-12-17] MEDS: Ferrous Sulfate 325 MG Tablet PO (12:00)
[2021-12-17 12:31] LABS: Bedside Glucose 322 mg/dL (74-106)
--- NOTE | 2021-12-17 14:32 | PCM.PROGNOTE ---
Subjective Subjective Patient was seen this morning for follow up on left foot partial 1st ray amputation. He is resting in chair with feet elevated. She has no complaints of fever, chills, nausea or vomiting. Pain is controlled. Patient also has chronic heel ulcerations. Objective Data Objective Data Vital Signs: Vital Signs Temp Pulse Resp BP Pulse Ox O2 Del Method O2 Flow Rate 97.3 F L 82 18 142/67 H 100 Nasal Cannula 3.5 12/17/21 11:00 12/17/21 11:00 12/17/21 11:00 12/17/21 11:00 12/17/21 11:00 12/17/21 11:00 12/17/21 11:00 Oxygen Flow Rate (L/min) 3.5 Oxygen Delivery Method Nasal Cannula Weight: 100.5 kg Body Mass Index (BMI) 36.8 Intake & Output: Intake and Output for Last 24 Hours 12/15/21 12/16/21 12/17/21 23:59 23:59 23:59 Intake Total 2150 / 2750 1180 / 1720 2446.25 / 2446.25 Output Total 1500 / 2200 950 / 1250 300 / 300 Balance 650 / 550 230 / 470 2146.25 / 2146.25 Lab / Micro Data Result Diagrams: 12/17/21 06:35 12/17/21 06:35 Labs: Laboratory Results - last 24 hr 12/16/21 17:47: POC Glucose 168 H 12/16/21 21:21: POC Glucose 240 H 12/17/21 00:20: Vancomycin Trough 19.1 H 12/17/21 06:35: WBC 6.5, RBC 3.01 L, Hgb 8.6 L, Hct 27.0 L, MCV 89.7, MCH 28.6, MCHC 31.9 L, RDW Std Deviation 53.1 H, RDW Coeff of Magen 16.1 H, Plt Count 148 L, MPV 11.0, Immature Gran % (Auto) 0.300, Neut % (Auto) 75.0 H, Lymph % (Auto) 13.2 L, [place] % (Auto) 8.4, Eos % (Auto) 2.3, Baso % (Auto) 0.8, Absolute Neuts (auto) 4.9, Absolute Lymphs (auto) 0.86, Nucleated RBC % 0 12/17/21 06:35: Sodium 136, Potassium 4.8, Chloride 105, Carbon Dioxide 27.0, Anion Gap 4 L, BUN 26 H, Creatinine 1.06 H, Estim Creat Clear Calc 47.61, Est GFR (MDRD) Af Amer 67, Est GFR (MDRD) Non-Af 55 L, BUN/Creatinine Ratio 24.5 H, Glucose 289 H, Calcium 9.1 12/17/21 08:39: POC Glucose 257 H 12/17/21 11:58: POC Glucose 322 H Micro: Microbiology 12/16/21 Unknown Tissue - Great Toe Gram Stain - Final 12/16/21 Unknown Tissue - Great Toe Wound Culture - Preliminary Gram positive marita Gram positive organism#2 12/16/21 Unknown Bone - Great Toe Gram Stain - Final 12/16/21 Unknown Bone - Great Toe Wound Culture - Preliminary Gram positive marita 12/16/21 Unknown Tissue - Great Toe Gram Stain - Final 12/16/21 Unknown Tissue - Great Toe Wound Culture - Preliminary No growth-Final to follow 12/13/21 19:15 Wound Drainage - Toe Gram Stain - Final 12/13/21 19:15 Wound Drainage - Toe Wound Culture - Preliminary Corynebacterium striatum Yeast, not Jeninfer albicans Gram Positive Cocci 12/13/21 19:15 Wound Drainage - Toe Anaerobic Culture - Final No anaerobic bacteria isolated. 12/13/21 13:40 Blood Culture (Wb) - Right Wrist Blood Culture - Preliminary No growth in 48 hours. 12/13/21 14:05 Blood Culture (Wb) - Anticubital Left Blood Culture - Preliminary No growth in 48 hours. Radiography Diagnostic Testing: Radiology Impression Foot X-Ray 12/16/21 14:39 IMPRESSION: Partial first ray resection. Electronically Signed: Rush Presley MD at 16:34 EDT , Foot X-Ray 12/16/21 16:30 IMPRESSION: Status post partial resection first ray. Electronically Signed: Rush Presley MD at 16:55 EDT , Physical Exam Narrative s/p left partial 1st ray amputation with intact sutures, no dehiscence, no evidence of complications - healing well at this time. Bilateral heel ulcerations down to subcutaneous tissue with no evidence of infection. Otherwise skin intact, CFT < 2 seconds to all toes, no evidence of DVT, no evidence of acute ischemia bilateral foot/ankle/leg, decreased sensation to foot - chronic in nature, no evidence of acute charcot neuroarthropathy or compartment syndrome bilateral foot/ankle/leg. Const alert, oriented x3 and no apparent distress Assessment & Plan Assessment/Plan (1) Foot osteomyelitis, left: (2) Foot ulcer, left: (3) Non-pressure chronic ulcer of right heel and midfoot with fat layer exposed: (4) Type 2 diabetes mellitus with foot ulcer: PLAN: Plan Evaluation performed. Patient is s/p left partial 1st ray ampuation on 12/16/21 - site healing well. No evidence of complications at this time. Patient is on IV antibiotics - Ceftriaxone and Vancomycin at this time. Surgical culture results pending. Dr. Mosher/Infectious Disease on consults. Painted incision site with betadine soln, also applied betadine soln to heel ulcerations, and applied overlying gauze dressing - change daily. Keep bilateral heels offloaded at all times. No weightbearing left foot. Keep foot elevated. Podiatry will continue to follow.
[2021-12-17 17:40] LABS: Bedside Glucose 212 mg/dL (74-106)
[2021-12-17] MEDS: Psyllium 1 PACKET PO (18:32)
[2021-12-17] MEDS: traZODone 100 MG Tablet PO (21:48)
[2021-12-17] MEDS: ARIPiprazole 10 MG Tablet PO (21:48)
[2021-12-17] MEDS: Atorvastatin Calcium 40 MG Tablet PO (21:50)
[2021-12-17] MEDS: Montelukast 10 MG Tablet PO (21:50)
[2021-12-17] MEDS: Insulin Glargine-YFGN 100 UNIT/ML Pen 35 UNIT SC (22:02)
[2021-12-17 22:45] LABS: Bedside Glucose 266 mg/dL (74-106)
[2021-12-18] VITALS (11 sets, daily range): BP systolic 125–159; BP diastolic 52–93; PULSE 82–103; RESP 16–20; TEMP 36.3–36.7; O2SAT 96–100
[2021-12-18] MEDS: Acetaminophen 325 MG Tablet 650 MG PO (00:44)
[2021-12-18] MEDS: Nystatin Powder 15gm Bottle 1 APPLIC TOPICAL ×3 (05:48→21:29)
[2021-12-18] MEDS: Gabapentin 100 MG Capsule 200 MG PO ×3 (05:48→21:28)
[2021-12-18] MEDS: Levothyroxine 100 MCG Tablet PO (05:50)
[2021-12-18 07:26] LABS: Absolute Lymphocyte Count 0.78 X10^3/uL (0.83-4.51); Absolute Neutrophil Count 5.4 X10^3/uL (2.0-7.7); Basophil# 0.04 X10^3/uL; Basophil% 0.6 % (0-1); Eosinophil# 0.12 X10^3/uL; Eosinophils% 1.8 % (0-5); Hematocrit 28.7 % (37-47); Hemoglobin 8.9 g/dL (12.0-15.0); Lymphocyte # 0.78 X10^3/ul (0.83-4.51); Lymphocyte % 11.4 % (19-41); Mean Corpuscular Volume 90.3 fL (81-99); Monocyte# 0.49 X10^3/uL; Monocyte% 7.2 % (0-10); NRBC Flagged by Analyzer 0 % (0-5); Neutrophil # 5.38 X10^3/uL (2.7-7.7); Neutrophil % 78.6 % (47-70); Platelet Count 150 K/mm3 (150-450); RBC Distribution Width CV 16.1 % (11.6-14.6); RBC Distribution Width SD 53.1 fl (35.1-43.9); Red Blood Count 3.18 M/mm3 (4.2-5.4); White Blood Count 6.8 K/mm3 (4.4-11.0)
[2021-12-18 08:00] LABS: Anion Gap 5 (5-15); BUN 28 mg/dL (7-18); BUN/Creat Ratio 25.5 RATIO (10-20); Calcium,Total 9.7 mg/dL (8.5-10.1); Chloride 104 mmol/L (98-107); EST Glomerular Filtration Rate 53 mL/min (>60); Est Glom Filt Rate - Afr Amer 64 mL/min (>60); Estimated Creatinine Clearance 45.88 ml/min; Glucose 336 mg/dL (74-106); Potassium 4.7 mmol/L (3.5-5.1); Sodium Level 136 mmol/L (136-145)
[2021-12-18] MEDS: Aspirin E.C. 81 MG Tablet PO (08:00)
[2021-12-18] MEDS: Fluconazole 100 MG Tablet 200 MG PO (08:00)
[2021-12-18] MEDS: Juven (unflavored) Packet 1 PACKET PO ×2 (08:00→18:00)
[2021-12-18] MEDS: Menthol/Lanolin/Calamine/Znox 113 GM Tube 1 APPLIC TOPICAL ×2 (08:01→21:29)
[2021-12-18] MEDS: Pantoprazole Sodium 40 MG Tablet PO ×2 (08:01→21:30)
[2021-12-18] MEDS: Heparin Injection (Vial) 5,000 UNIT/ML VIAL 5000 UNIT SC ×2 (08:01→21:29)
[2021-12-18] MEDS: Metoprolol(XL)Succ 50 MG Tablet PO ×2 (08:02→21:32)
[2021-12-18] MEDS: Senna/Docusate Sodium 1 Tablet PO ×2 (08:02→21:31)
[2021-12-18] MEDS: Insulin Lispro 100 UNIT/ML INSULN.PEN 10 UNIT SC ×3 (08:11→17:59)
[2021-12-18] MEDS: Insulin Lispro 100 UNIT/ML INSULN.PEN SC ×3 (08:12→17:59)
[2021-12-18 08:35] LABS: Bedside Glucose 362 mg/dL (74-106)
--- NOTE | 2021-12-18 08:35 | PCM.PROGNOTE ---
Subjective Subjective Patient was seen this morning for follow up on heel ulcerations and left foot partial 1st ray amputation. She is resting in bed. It has been reported she has been moving feet around a lot and has not kept left foot elevated. She has no fever, and WBC is normal. Objective Data Objective Data Vital Signs: Vital Signs Temp Pulse Resp BP Pulse Ox O2 Del Method O2 Flow Rate 97.4 F L 82 18 150/69 H 100 Nasal Cannula 3 12/18/21 07:56 12/18/21 08:02 12/18/21 07:56 12/18/21 07:56 12/18/21 07:56 12/18/21 08:20 12/18/21 08:20 Oxygen Flow Rate (L/min) 3 Oxygen Delivery Method Nasal Cannula Weight: 100.5 kg Body Mass Index (BMI) 36.8 Intake & Output: Intake and Output for Last 24 Hours 12/16/21 12/17/21 12/18/21 23:59 23:59 23:59 Intake Total 1180 / 1720 3111.25 / 3111.25 265 / 265 Output Total 950 / 1250 300 / 300 Balance 230 / 470 2811.25 / 2811.25 265 / 265 Lab / Micro Data Result Diagrams: 12/18/21 07:10 12/18/21 07:10 Labs: Laboratory Results - last 24 hr 12/17/21 08:39: POC Glucose 257 H 12/17/21 11:58: POC Glucose 322 H 12/17/21 16:59: POC Glucose 212 H 12/17/21 21:55: POC Glucose 266 H 12/18/21 07:10: WBC 6.8, RBC 3.18 L, Hgb 8.9 L, Hct 28.7 L, MCV 90.3, MCH 28.0, MCHC 31.0 L, RDW Std Deviation 53.1 H, RDW Coeff of Magen 16.1 H, Plt Count 150, MPV 11.0, Immature Gran % (Auto) 0.400, Neut % (Auto) 78.6 H, Lymph % (Auto) 11.4 L, [place] % (Auto) 7.2, Eos % (Auto) 1.8, Baso % (Auto) 0.6, Absolute Neuts (auto) 5.4, Absolute Lymphs (auto) 0.78 L, Nucleated RBC % 0 12/18/21 07:10: Sodium 136, Potassium 4.7, Chloride 104, Carbon Dioxide 27.0, Anion Gap 5, BUN 28 H, Creatinine 1.10 H, Estim Creat Clear Calc 45.88, Est GFR (MDRD) Af Amer 64, Est GFR (MDRD) Non-Af 53 L, BUN/Creatinine Ratio 25.5 H, Glucose 336 H, Calcium 9.7 Micro: Microbiology 12/16/21 Unknown Bone - Great Toe Gram Stain - Final 12/16/21 Unknown Bone - Great Toe Wound Culture - Preliminary Corynebacterium striatum 12/13/21 19:15 Wound Drainage - Toe Gram Stain - Final 12/13/21 19:15 Wound Drainage - Toe Wound Culture - Preliminary Corynebacterium striatum Yeast, not Jennifer albicans Enterococcus faecalis 12/13/21 19:15 Wound Drainage - Toe Anaerobic Culture - Final No anaerobic bacteria isolated. 12/16/21 Unknown Tissue - Great Toe Gram Stain - Final 12/16/21 Unknown Tissue - Great Toe Wound Culture - Preliminary Gram positive marita Gram positive organism#2 12/16/21 Unknown Tissue - Great Toe Gram Stain - Final 12/16/21 Unknown Tissue - Great Toe Wound Culture - Preliminary No growth-Final to follow 12/13/21 13:40 Blood Culture (Wb) - Right Wrist Blood Culture - Preliminary No growth in 48 hours. 12/13/21 14:05 Blood Culture (Wb) - Anticubital Left Blood Culture - Preliminary No growth in 48 hours. Physical Exam Narrative s/p left partial 1st ray amputation with intact sutures, no dehiscence, no evidence of complications - some ecchymosis and swelling to the site c/w surgery. Bilateral heel ulcerations down to subcutaneous tissue with no evidence of infection. Otherwise skin intact, CFT < 2 seconds to all toes, no evidence of DVT, no evidence of acute ischemia bilateral foot/ankle/leg, decreased sensation to foot - chronic in nature, no evidence of acute charcot neuroarthropathy or compartment syndrome bilateral foot/ankle/leg. Const alert, oriented x3 and no apparent distress General Appearance: cooperative HEENT normocephalic Eyes General Eye: normal appearance of both eyes Neck General: normal visual inspection Lymph Lymphatic: no lymphadenopathy noted and no lymphedema noted Resp normal respiratory effort Cardio regular rate Extremity no calf tenderness and no pedal edema Extremity Narrative: Left foot: DP and PT weakly palpable. DP monophasic on Doppler. PT biphasic on Doppler. Capillary fill time to the digits of the left foot is less than 5 seconds. Right foot: DP and PT palpable. Capillary fill time is less than 5 seconds. Skin no rashes or lesions noted, skin turgor normal and no jaundice General Skin Exam: erythema Wound Narrative: Right foot: Posterior heel decubitus ulceration demonstrates stable eschar. No signs of infection. Left foot: Posterior heel decubitus ulceration x2 with stable eschar. No signs of infection. Left hallux amputation stump demonstrates ulceration with black, necrotic tissue at the wound margin with yellow crusting/hyperkeratosis surrounding the eschar. Central aspect of the wound demonstrates dense fibrotic tissue with some serosanguineous drainage. Ulceration probes to bone of the first metatarsal head with a small area of likely exposed metatarsal head wound margins also demonstrate erythema extending dorsally onto the foot. No palpable bogginess, no fluctuance, no purulent drainage, no malodor. There is pain about the ulcerative site. Neuro moves all extremities Psych cooperative Assessment & Plan Assessment/Plan (1) Foot osteomyelitis, left: (2) Foot ulcer, left: (3) Non-pressure chronic ulcer of right heel and midfoot with fat layer exposed: (4) Type 2 diabetes mellitus with foot ulcer: PLAN: Plan Evaluation performed. Patient is s/p left partial 1st ray amputation on 12/16/21 - site healing well. No evidence of complications at this time. Patient is on IV antibiotics - Ceftriaxone and Vancomycin at this time. Surgical culture results pending - reviewed prelim results. Dr. Mosher/Infectious Disease on consult. Painted incision site with betadine soln, also applied betadine soln to heel ulcerations, and applied overlying gauze dressing - change daily. Keep bilateral heels offloaded at all times. Recommended bilateral offloading heel boots. No weightbearing left foot. Keep foot elevated. Podiatry will continue to follow.
--- NOTE | 2021-12-18 10:21 | PN.HOSP_ITS ---
Subjective Subjective Patient seen and examined. She complains of not been able to sleep at night. Pain is well controlled and she had no other complaints. Review of systems is otherwise negative. She has remained hemodynamically stable Objective Data Objective Data Vital Signs: Vital Signs Temp Pulse Resp BP Pulse Ox O2 Del Method O2 Flow Rate 97.4 F L 82 18 150/69 H 100 Nasal Cannula 3 12/18/21 07:56 12/18/21 08:02 12/18/21 07:56 12/18/21 07:56 12/18/21 07:56 12/18/21 08:20 12/18/21 08:20 Oxygen Flow Rate (L/min) 3 Oxygen Delivery Method Nasal Cannula Weight: 221 lb 9.033 oz Body Mass Index (BMI) 36.8 Intake & Output: Intake and Output for Last 24 Hours 12/16/21 12/17/21 12/18/21 23:59 23:59 23:59 Intake Total 1180 / 1720 3111.25 / 3111.25 265 / 265 Output Total 950 / 1250 300 / 300 Balance 230 / 470 2811.25 / 2811.25 265 / 265 Lab / Micro Data Result Diagrams: 12/18/21 07:10 12/18/21 07:10 Labs: Laboratory Results - last 24 hr 12/17/21 11:58: POC Glucose 322 H 12/17/21 16:59: POC Glucose 212 H 12/17/21 21:55: POC Glucose 266 H 12/18/21 07:10: WBC 6.8, RBC 3.18 L, Hgb 8.9 L, Hct 28.7 L, MCV 90.3, MCH 28.0, MCHC 31.0 L, RDW Std Deviation 53.1 H, RDW Coeff of Magen 16.1 H, Plt Count 150, MPV 11.0, Immature Gran % (Auto) 0.400, Neut % (Auto) 78.6 H, Lymph % (Auto) 11.4 L, [place] % (Auto) 7.2, Eos % (Auto) 1.8, Baso % (Auto) 0.6, Absolute Neuts (auto) 5.4, Absolute Lymphs (auto) 0.78 L, Nucleated RBC % 0 12/18/21 07:10: Sodium 136, Potassium 4.7, Chloride 104, Carbon Dioxide 27.0, Anion Gap 5, BUN 28 H, Creatinine 1.10 H, Estim Creat Clear Calc 45.88, Est GFR (MDRD) Af Amer 64, Est GFR (MDRD) Non-Af 53 L, BUN/Creatinine Ratio 25.5 H, Glucose 336 H, Calcium 9.7 12/18/21 08:11: POC Glucose 362 H Micro: Microbiology 12/16/21 Unknown Tissue - Great Toe Gram Stain - Final 12/16/21 Unknown Tissue - Great Toe Wound Culture - Preliminary Gram positive marita Gram Positive Cocci 12/16/21 Unknown Bone - Great Toe Gram Stain - Final 12/16/21 Unknown Bone - Great Toe Wound Culture - Preliminary Corynebacterium striatum 12/13/21 19:15 Wound Drainage - Toe Gram Stain - Final 12/13/21 19:15 Wound Drainage - Toe Wound Culture - Preliminary Corynebacterium striatum Yeast, not Jennifer albicans Enterococcus faecalis 12/13/21 19:15 Wound Drainage - Toe Anaerobic Culture - Final No anaerobic bacteria isolated. 12/16/21 Unknown Tissue - Great Toe Gram Stain - Final 12/16/21 Unknown Tissue - Great Toe Wound Culture - Preliminary No growth-Final to follow 12/13/21 13:40 Blood Culture (Wb) - Right Wrist Blood Culture - Preliminary No growth in 48 hours. 12/13/21 14:05 Blood Culture (Wb) - Anticubital Left Blood Culture - Preliminary No growth in 48 hours. Physical Exam Const alert, oriented x3 and no apparent distress General Appearance: uncooperative HEENT head/scalp atraumatic, moist oral mucous membranes and oropharynx normal Eyes PERRL, EOMs intact bilaterally and conjunctivae normal Neck no lymphadenopathy and supple Resp normal respiratory effort, no retractions, no use of accessory muscles and clear to auscultation bilaterally Cardio regular rate, regular rhythm, S1 normal heart sound, S2 normal heart sound and no murmurs GI normal to inspection, nondistended, normoactive bowel sounds, soft to palpation, non-tender and non-distended Extremity Extremity Narrative: right foot partially wrapped in bandage. Left foot also wrapped in bandage Neuro oriented x3, CN's II-XII intact bilaterally, moves all extremities and no focal motor deficits Sensorium / Orientation: awake and alert Motor Exam: strength 5/5 throughout Psych affect normal Assessment & Plan Assessment/Plan (1) Foot ulcer, left: (2) Cellulitis of left foot: PLAN: Plan #Nonhealing left foot ulcer * s/p partial ray resectin of left foot first metatarsal. today is POD 2 * has a chronic left foot nonhealing ulcer. Had left great toe amputated. * has diabetic nephropathy and uncontrolled hyperglycemia. * on IV vancomycin and ceftriaxone as well as fluconazole * wound cultures from 12/07 grew Enterococcus fecalis and corynebacterium * podiatry and ID on board * MRI of left foot showed first digit with cellulitis at the site with a deep ulcer extending to the dorsal distal cortex of the first metatarsal bone with cortical osteitis and osteomyelitis of the head and neck of the first metatarsal bone. * wound care also on board. * bone cultures pending * #CAD: on aspirin, metoprolol and satin. #HFpEF: not in exacerbation. Continue diuretics #Type 2 diabetes mellitus * poorly controlled * on lantus 35 units qhs as well as dulaglutide * ISS. Accuchecks ACHS * A1C is 7.2 * #Hypothyroidism; on synthroid. TSH rechecked was 3.17, which is WNL #Hypertension; on lisinopril. #COPD: not in exacerbation. Breathing treatment with bronchodilators #Hyperlipidemia: on statin #Depression; on mirtazapine and Abilify #DVT prophylaxis: heparin. Charges/Coding Visit Charges Inpatient E&M: 62151 Subs Hosp L2
[2021-12-18 12:30] LABS: Bedside Glucose 303 mg/dL (74-106)
[2021-12-18] MEDS: Ferrous Sulfate 325 MG Tablet PO (12:54)
[2021-12-18] MEDS: QUEtiapine 25 MG Tablet PO ×2 (15:27→21:36)
[2021-12-18 17:25] LABS: Bedside Glucose 167 mg/dL (74-106)
[2021-12-18] MEDS: traZODone 100 MG Tablet PO (21:30)
[2021-12-18] MEDS: Montelukast 10 MG Tablet PO (21:30)
[2021-12-18] MEDS: ARIPiprazole 10 MG Tablet PO (21:30)
[2021-12-18] MEDS: Insulin Glargine-YFGN 100 UNIT/ML Pen 35 UNIT SC (21:31)
[2021-12-18] MEDS: Atorvastatin Calcium 40 MG Tablet PO (21:32)
[2021-12-18 22:00] LABS: Bedside Glucose 129 mg/dL (74-106)
[2021-12-19] VITALS (9 sets, daily range): BP systolic 122–155; BP diastolic 72–95; PULSE 85–105; RESP 18–20; TEMP 36.4–36.8; O2SAT 96–100
[2021-12-19] MEDS: Ketorolac 15 MG/ML Vial IV (00:05)
[2021-12-19 01:10] LABS: Vancomycin, Trough Level 21.4 ug/mL (5.0-15.0)
--- NOTE | 2021-12-19 03:17 | PCM.RX.CS ---
Consult Pharmacy has been consulted to manage selected antiobiotic: Vancomycin Type of Consult: Follow-up Labs: Sodium 136 mmol/L (136-145) 12/18/21 07:10 Potassium 4.7 mmol/L (3.5-5.1) 12/18/21 07:10 Chloride 104 mmol/L (98-107) 12/18/21 07:10 Carbon Dioxide 27.0 mmol/L (21.0-32.0) 12/18/21 07:10 Anion Gap 5 (5-15) 12/18/21 07:10 BUN 28 mg/dL (7-18) H 12/18/21 07:10 Creatinine 1.10 mg/dL (0.55-1.02) H 12/18/21 07:10 Est GFR (MDRD) Af Amer 64 mL/min (>60) 12/18/21 07:10 Est GFR (MDRD) Non-Af 53 mL/min (>60) L 12/18/21 07:10 BUN/Creatinine Ratio 25.5 RATIO (10-20) H 12/18/21 07:10 Glucose 336 mg/dL (74-106) H 12/18/21 07:10 Vancomycin Trough 21.4 ug/mL (5.0-15.0) H 12/19/21 00:35 Microbiology: Microbiology 12/13/21 14:05 Blood Culture (Wb) - Anticubital Left Blood Culture - Final No growth in 5 days. 12/13/21 13:40 Blood Culture (Wb) - Right Wrist Blood Culture - Final No growth in 5 days. 12/16/21 Unknown Tissue - Great Toe Gram Stain - Final 12/16/21 Unknown Tissue - Great Toe Wound Culture - Preliminary Gram positive marita Gram Positive Cocci 12/16/21 Unknown Bone - Great Toe Gram Stain - Final 12/16/21 Unknown Bone - Great Toe Wound Culture - Preliminary Corynebacterium striatum 12/13/21 19:15 Wound Drainage - Toe Gram Stain - Final 12/13/21 19:15 Wound Drainage - Toe Wound Culture - Preliminary Corynebacterium striatum Yeast, not Jennifer albicans Enterococcus faecalis 12/13/21 19:15 Wound Drainage - Toe Anaerobic Culture - Final No anaerobic bacteria isolated. 12/16/21 Unknown Tissue - Great Toe Gram Stain - Final 12/16/21 Unknown Tissue - Great Toe Wound Culture - Preliminary No growth-Final to follow Goal Trough: 15-20 mcg/mL Pharmacy Plan for Drug Dosing: Pharmacy Service will continue to monitor and adjust dosing as required. TROUGH 21.4 @ 11.5 HRS. HOLD NEXT DOSE AND DRAW RANDOM LEVEL IN 18 HOURS Follow-Up Labs: Trough Vancomycin Labs to be done on [date and time ordered]: 12/19 @ 5385
[2021-12-19] MEDS: Gabapentin 100 MG Capsule 200 MG PO ×2 (05:23→14:35)
[2021-12-19] MEDS: Nystatin Powder 15gm Bottle 1 APPLIC TOPICAL ×3 (05:23→22:30)
[2021-12-19] MEDS: Levothyroxine 100 MCG Tablet PO (05:23)
[2021-12-19 06:57] LABS: Absolute Lymphocyte Count 0.79 X10^3/uL (0.83-4.51); Absolute Neutrophil Count 4.6 X10^3/uL (2.0-7.7); Basophil# 0.06 X10^3/uL; Eosinophil# 0.12 X10^3/uL; Hematocrit 27.9 % (37-47); Hemoglobin 8.6 g/dL (12.0-15.0); Lymphocyte # 0.79 X10^3/ul (0.83-4.51); Lymphocyte % 13.1 % (19-41); Mean Corp Hgb Conc 30.8 g/dL (32-36); Mean Corpuscular Hgb 27.9 pg (27.0-32.0); Mean Corpuscular Volume 90.6 fL (81-99); Mean Platelet Vol. 11.2 fl (6.2-12.0); Monocyte# 0.44 X10^3/uL; Monocyte% 7.3 % (0-10); NRBC Flagged by Analyzer 0 % (0-5); Neutrophil # 4.57 X10^3/uL (2.7-7.7); Neutrophil % 76.1 % (47-70); Platelet Count 127 K/mm3 (150-450); RBC Distribution Width CV 16.4 % (11.6-14.6); RBC Distribution Width SD 53.8 fl (35.1-43.9); Red Blood Count 3.08 M/mm3 (4.2-5.4)
[2021-12-19 07:13] LABS: BUN 31 mg/dL (7-18); BUN/Creat Ratio 31.4 RATIO (10-20); Calcium,Total 9.7 mg/dL (8.5-10.1); Chloride 110 mmol/L (98-107); Creatinine, Serum 0.99 mg/dL (0.55-1.02); EST Glomerular Filtration Rate 60 mL/min (>60); Est Glom Filt Rate - Afr Amer 72 mL/min (>60); Estimated Creatinine Clearance 50.98 ml/min; Glucose 195 mg/dL (74-106); Potassium 4.5 mmol/L (3.5-5.1); Sodium Level 141 mmol/L (136-145)
[2021-12-19 07:14] LABS: Anion Gap 4 (5-15)
[2021-12-19] MEDS: Aspirin E.C. 81 MG Tablet PO (08:44)
[2021-12-19] MEDS: QUEtiapine 25 MG Tablet PO (08:44)
[2021-12-19] MEDS: Insulin Lispro 100 UNIT/ML INSULN.PEN 10 UNIT SC ×3 (08:45→16:56)
[2021-12-19] MEDS: Insulin Lispro 100 UNIT/ML INSULN.PEN SC ×4 (08:45→22:31)
[2021-12-19] MEDS: Senna/Docusate Sodium 1 Tablet PO ×2 (08:45→22:29)
[2021-12-19] MEDS: Menthol/Lanolin/Calamine/Znox 113 GM Tube 1 APPLIC TOPICAL ×2 (08:46→22:29)
[2021-12-19] MEDS: Pantoprazole Sodium 40 MG Tablet PO ×2 (08:46→22:32)
[2021-12-19] MEDS: Juven (unflavored) Packet 1 PACKET PO ×2 (08:46→16:56)
[2021-12-19] MEDS: Heparin Injection (Vial) 5,000 UNIT/ML VIAL 5000 UNIT SC ×2 (08:47→22:30)
[2021-12-19] MEDS: Fluconazole 100 MG Tablet 200 MG PO (08:47)
[2021-12-19] MEDS: Metoprolol(XL)Succ 50 MG Tablet PO ×2 (08:48→22:28)
[2021-12-19 09:15] LABS: Bedside Glucose 204 mg/dL (74-106)
--- NOTE | 2021-12-19 11:31 | CASEMGMT ---
Social Work SW in to pt room to discuss d/c plan, following up from weekend SW. SW introduced self and role at the hospital. Pt agreeable to discussing discharge plan. A printed list of SNF providers including quality and resource use data and consistent with the patient?s preferred geographic region, medical needs, and insurance network via the [facility] Guide Link. Pt reported had been given a list over the weekend and preferred provider is 1st- [facility] and 2nd- [facility]. SW notified Discharge social services assistant, Mayela Lantigua, of pt choice. Referral to [facility] to be sent. PLAN: [facility], pending acceptance and precert JAYY Georges
--- NOTE | 2021-12-19 11:47 | CASEMGMT ---
Discharge Civil Cadd Technician This check writer salesperson sent referral to [facility] via [facility]. Will follow up. Ruben MEAD Work Adjustment Instructor
--- NOTE | 2021-12-19 12:08 | PN_ITS ---
Subjective Subjective Patient was seen this morning for follow up on heel ulcerations and left foot partial 1st ray amputation. Patient is day 3 postop. Patient denies any nausea vomiting chest pain calf pain shortness of breath. Patient denies any diarrhea. Patient denies any other issues at this time notes pain worse at night. Objective Data Objective Data Vital Signs: Vital Signs Temp Pulse Resp BP Pulse Ox O2 Del Method O2 Flow Rate 97.9 F 95 18 133/95 H 98 Nasal Cannula 3 12/19/21 08:45 12/19/21 08:48 12/19/21 08:45 12/19/21 08:48 12/19/21 08:45 12/19/21 08:45 12/19/21 08:45 Oxygen Flow Rate (L/min) 3 Oxygen Delivery Method Nasal Cannula Weight: 100.5 kg Body Mass Index (BMI) 36.8 Intake & Output: Intake and Output for Last 24 Hours 12/17/21 12/18/21 12/19/21 23:59 23:59 23:59 Intake Total 3111.25 / 3111.25 1651.5 / 1651.5 516 / 516 Output Total 300 / 300 1000 / 1000 Balance 2811.25 / 2811.25 651.5 / 651.5 516 / 516 Lab / Micro Data Result Diagrams: 12/19/21 05:37 12/19/21 05:37 Labs: Laboratory Results - last 24 hr 12/18/21 11:49: POC Glucose 303 H 12/18/21 16:57: POC Glucose 167 H 12/18/21 21:26: POC Glucose 129 H 12/19/21 00:35: Vancomycin Trough 21.4 H 12/19/21 05:37: WBC 6.0, RBC 3.08 L, Hgb 8.6 L, Hct 27.9 L, MCV 90.6, MCH 27.9, MCHC 30.8 L, RDW Std Deviation 53.8 H, RDW Coeff of Magen 16.4 H, Plt Count 127 L, MPV 11.2, Immature Gran % (Auto) 0.500, Neut % (Auto) 76.1 H, Lymph % (Auto) 13 .1 L, [place] % (Auto) 7.3, Eos % (Auto) 2.0, Baso % (Auto) 1.0, Absolute Neuts (auto) 4.6, Absolute Lymphs (auto) 0.79 L, Nucleated RBC % 0 12/19/21 05:37: Sodium 141, Potassium 4.5, Chloride 110 H, Carbon Dioxide 27.0, Anion Gap 4 L, BUN 31 H, Creatinine 0.99, Estim Creat Clear Calc 50.98, Est GFR (MDRD) Af Amer 72, Est GFR (MDRD) Non-Af 60, BUN/Creatinine Ratio 31.4 H, Glucose 195 H, Calcium 9.7 12/19/21 08:43: POC Glucose 204 H Micro: Microbiology 12/16/21 Unknown Tissue - Great Toe Gram Stain - Final 12/16/21 Unknown Tissue - Great Toe Wound Culture - Final Corynebacterium striatum Staphylococcus haemolyticus 12/16/21 Unknown Tissue - Great Toe Anaerobic Culture - Preliminary Checking for anaerobes, further studies to follow. 12/16/21 Unknown Tissue - Great Toe Gram Stain - Final 12/16/21 Unknown Tissue - Great Toe Wound Culture - Final No growth aerobically. 12/16/21 Unknown Tissue - Great Toe Anaerobic Culture - Preliminary No growth in 48 hours. 12/13/21 19:15 Wound Drainage - Toe Gram Stain - Final 12/13/21 19:15 Wound Drainage - Toe Wound Culture - Final Corynebacterium striatum Yeast, not Jennifer albicans Enterococcus faecalis 12/13/21 19:15 Wound Drainage - Toe Anaerobic Culture - Final No anaerobic bacteria isolated. 12/16/21 Unknown Bone - Great Toe Gram Stain - Final 12/16/21 Unknown Bone - Great Toe Wound Culture - Preliminary Corynebacterium striatum 12/16/21 Unknown Bone - Great Toe Anaerobic Culture - Preliminary Checking for anaerobes, further studies to follow. 12/13/21 14:05 Blood Culture (Wb) - Anticubital Left Blood Culture - Final No growth in 5 days. 12/13/21 13:40 Blood Culture (Wb) - Right Wrist Blood Culture - Final No growth in 5 days. Physical Exam Narrative s/p left partial 1st ray amputation with intact sutures, no dehiscence, no e vidence of complications - some ecchymosis, erythema and swelling to the site c/w surgery. Bilateral heel ulcerations down to subcutaneous tissue with no evidence of infection. Otherwise skin intact, CFT < 2 seconds to all toes, no evidence of DVT, no evidence of acute ischemia bilateral foot/ankle/leg, decreased sensation to foot - chronic in nature, no evidence of acute charcot neuroarthropathy or compartment syndrome bilateral foot/ankle/leg. Const alert, oriented x3 and no apparent distress General Appearance: cooperative HEENT normocephalic Eyes General Eye: normal appearance of both eyes Neck General: normal visual inspection Lymph Lymphatic: no lymphadenopathy noted and no lymphedema noted Resp normal respiratory effort Cardio regular rate Extremity no calf tenderness and no pedal edema Extremity Narrative: Left foot: DP and PT weakly palpable. DP monophasic on Doppler. PT biphasic on Doppler. Capillary fill time to the digits of the left foot is less than 5 seconds. Right foot: DP and PT palpable. Capillary fill time is less than 5 seconds. Skin no rashes or lesions noted, skin turgor normal and no jaundice General Skin Exam: erythema Wound Narrative: Right foot: Posterior heel decubitus ulceration demonstrates stable eschar. No signs of infection. Left foot: Posterior heel decubitus ulceration x2 with stable eschar. No signs of infection. Left hallux amputation stump demonstrates ulceration with black, necrotic tissue at the wound margin with yellow crusting/hyperkeratosis surrounding the eschar. Central aspect of the wound demonstrates dense fibrotic tissue with some serosanguineous drainage. Ulceration probes to bone of the first metatarsal head with a small area of likely exposed metatarsal head wound margins also demonstrate erythema extending dorsally onto the foot. No palpable bogginess, no fluctuance, no purulent drainage, no malodor. There is pain about the ulcerative site. Neuro moves all extremities Psych cooperative Assessment & Plan Assessment/Plan (1) Foot osteomyelitis, left: (2) Foot ulcer, left: (3) Non-pressure chronic ulcer of right heel and midfoot with fat layer exposed: (4) Type 2 diabetes mellitus with foot ulcer: PLAN: Plan Evaluation performed. Patient is s/p left partial 1st ray amputation on 12/16/21 - site healing well. Some residual residual erythema edema noted to the incisional site. This may represent early incisional dehiscence versus residual cellulitis. Infectious disease on this on board due to residual erythema edema possible wound breakdown I recommend continued antibiotics IV into discharge Patient should maintain a nonweightbearing status for left lower extremity Due to severe left lower extremity infection which will require prolonged nonweightbearing recommend discharge to [facility] Ordered arterial studies to evaluate bilateral lower extremity vascular status as I did not see any previous arterial studies and the patient's history. Will continue to follow daily.
[2021-12-19] MEDS: Ferrous Sulfate 325 MG Tablet PO (12:35)
[2021-12-19 12:55] LABS: Bedside Glucose 308 mg/dL (74-106)
--- NOTE | 2021-12-19 13:26 | WOUNDNOTE ---
wound photo: left foot
--- NOTE | 2021-12-19 13:27 | WOUNDNOTE ---
wound photo: right heel
--- NOTE | 2021-12-19 13:28 | WOUNDNOTE ---
wound photo: left heel
--- NOTE | 2021-12-19 13:39 | CASEMGMT ---
Discharge Manager Of Construction This writer technical publications called for an update on the referral. Admissions is currently busy at the moment. Will call back. Ruben MEAD Manager Operating
--- NOTE | 2021-12-19 13:59 | CASEMGMT ---
Discharge Paper Counter This journalists and other writers spoke to Myriam. Myriam is reviewing referral. Ruben MEAD Ivf Embryologist
--- NOTE | 2021-12-19 14:42 | PN.ID_ITS ---
Physical Exam Narrative Feeling ok but confused. No fever, no n/v/d. Const alert and no apparent distress General Appearance: cooperative Resp normal air movement and clear to auscultation bilaterally Cardio regular rate and regular rhythm GI soft to palpation, non-tender and non-distended Skin Skin Narrative: feet wrapped ID ID: Route of nutrition/ use of supplements: [] Nutritional Intake: [] IV Site: [] Knight Catheter: [] Assessment & Plan Assessment/Plan (1) Foot osteomyelitis, left: PLAN: S/p L hallux amp 10/21/[address] No. Surg cx at that time with proteus. Wound cx now with corynebacter, e faecalis, and yeast. On vanc/ceftriaxone/fluc. Taken to OR 12/[address] No for distal 1st ray resection. Clearance cx neg so far. Will order picc, 10 days iv vanc and short course po fluc. Will follow, ID followup in 1 week, d/w employment case manager
[2021-12-19] MEDS: Polyethylene Glycol 3350 17 GM PACKET PO (17:00)
[2021-12-19 17:25] LABS: Bedside Glucose 253 mg/dL (74-106)
--- NOTE | 2021-12-19 18:36 | PN.HOSP_ITS ---
Subjective Subjective Examined today, she appeared to have slurred speech and appeared to be slightly confused today during my visit. Patient was placed on Seroquel for agitation, I tried to determine who her family practitioner was currently, I did talk with her son by phone and he stated that the patient has a bad reaction to narcotics and becomes confused and hallucinates. I have taken the step of discontinuing her morphine, also I discontinued her Abilify. We are currently awaiting confirmation of placement in a detention facility for ongoing care. Objective Data Objective Data Vital Signs: Vital Signs Temp Pulse Resp BP Pulse Ox O2 Del Method O2 Flow Rate 98.2 F 85 18 122/91 H 100 Nasal Cannula 3 12/19/21 15:35 12/19/21 15:35 12/19/21 15:35 12/19/21 15:35 12/19/21 15:35 12/19/21 15:35 12/19/21 15:35 Oxygen Flow Rate (L/min) 3 Oxygen Delivery Method Nasal Cannula Weight: 100.5 kg Body Mass Index (BMI) 36.8 Intake & Output: Intake and Output for Last 24 Hours 12/17/21 12/18/21 12/19/21 23:59 23:59 23:59 Intake Total 3111.25 / 3111.25 1651.5 / 1651.5 1616 / 1616 Output Total 300 / 300 1000 / 1000 Balance 2811.25 / 2811.25 651.5 / 651.5 1616 / 1616 Lab / Micro Data Result Diagrams: 12/19/21 05:37 12/19/21 05:37 Labs: Laboratory Results - last 24 hr 12/18/21 21:26: POC Glucose 129 H 12/19/21 00:35: Vancomycin Trough 21.4 H 12/19/21 05:37: WBC 6.0, RBC 3.08 L, Hgb 8.6 L, Hct 27.9 L, MCV 90.6, MCH 27.9, MCHC 30.8 L, RDW Std Deviation 53.8 H, RDW Coeff of Magen 16.4 H, Plt Count 127 L, MPV 11.2, Immature Gran % (Auto) 0.500, Neut % (Auto) 76.1 H, Lymph % (Auto) 13.1 L, [place] % (Auto) 7.3, Eos % (Auto) 2.0, Baso % (Auto) 1.0, Absolute Neuts (auto) 4.6, Absolute Lymphs (auto) 0.79 L, Nucleated RBC % 0 12/19/21 05:37: Sodium 141, Potassium 4.5, Chloride 110 H, Carbon Dioxide 27.0, Anion Gap 4 L, BUN 31 H, Creatinine 0.99, Estim Creat Clear Calc 50.98, Est GFR (MDRD) Af Amer 72, Est GFR (MDRD) Non-Af 60, BUN/Creatinine Ratio 31.4 H, Glucose 195 H, Calcium 9.7 12/19/21 08:43: POC Glucose 204 H 12/19/21 12:35: POC Glucose 308 H 12/19/21 16:55: POC Glucose 253 H Micro: Microbiology 12/16/21 Unknown Tissue - Great Toe Gram Stain - Final 12/16/21 Unknown Tissue - Great Toe Wound Culture - Final Corynebacterium striatum Staphylococcus haemolyticus 12/16/21 Unknown Tissue - Great Toe Anaerobic Culture - Preliminary Checking for anaerobes, further studies to follow. 12/16/21 Unknown Tissue - Great Toe Gram Stain - Final 12/16/21 Unknown Tissue - Great Toe Wound Culture - Final No growth aerobically. 12/16/21 Unknown Tissue - Great Toe Anaerobic Culture - Preliminary No growth in 48 hours. 12/13/21 19:15 Wound Drainage - Toe Gram Stain - Final 12/13/21 19:15 Wound Drainage - Toe Wound Culture - Final Corynebacterium striatum Yeast, not Jennifer albicans Enterococcus faecalis 12/13/21 19:15 Wound Drainage - Toe Anaerobic Culture - Final No anaerobic bacteria isolated. 12/16/21 Unknown Bone - Great Toe Gram Stain - Final 12/16/21 Unknown Bone - Great Toe Wound Culture - Preliminary Corynebacterium striatum 12/16/21 Unknown Bone - Great Toe Anaerobic Culture - Preliminary Checking for anaerobes, further studies to follow. 12/13/21 14:05 Blood Culture (Wb) - Anticubital Left Blood Culture - Final No growth in 5 days. 12/13/21 13:40 Blood Culture (Wb) - Right Wrist Blood Culture - Final No growth in 5 days. Physical Exam Const alert and no apparent distress Constitutional Narrative: Patient appears to have slurred speech and is mildly confused General Appearance: cooperative, well kempt and well developed Orientation / Consciousness: awake HEENT normocephalic, head/scalp atraumatic and moist oral mucous membranes Eyes PERRL, EOMs intact bilaterally and conjunctivae normal Neck supple, no JVD, thyroid normal and no carotid bruits General: trachea midline Resp normal respiratory effort, no retractions, no use of accessory muscles and clear to auscultation bilaterally Auscultation: Negative for rales, rhonchi or wheezes Cardio regular rate, regular rhythm, S1 normal heart sound, S2 normal heart sound, no murmurs, no rub and no gallops GI normal to inspection, nondistended, normoactive bowel sounds, soft to palpation, non-tender and non-distended Extremity Extremity Narrative: Patient's left foot is wrapped with surgical dressing, this was not removed for examination of the area Neuro oriented x3, CN's II-XII intact bilaterally, no focal motor deficits and no sensory deficits noted Neuro Narrative: Patient is alert, she has slurred speech and is mildly confused Sensorium / Orientation: awake and alert Psych Psych Narrative: Patient is mildly confused and has slurred speech Assessment & Plan Assessment/Plan (1) Type 2 diabetes mellitus with foot ulcer: PLAN: Plan 1. 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 Patient will need placement in a detention facility due to nonweightbearing on the left foot #2 type 2 diabetes-patient's blood sugars will be monitored, sliding scale insulin will be used, patient is on basal insulin and short acting insulin in addition. 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
[2021-12-19 19:24] LABS: Vancomycin, Random Level 19.9 ug/mL (0.0-15.0)
--- NOTE | 2021-12-19 20:20 | PHA.PHARE_ITS ---
Consult Pharmacy has been consulted to manage selected antiobiotic: Vancomycin Type of Consult: Follow-up Suspected Infection: Skin/Soft tissue Prior Doses of Antibiotics Received/Current Regimen: Had been on 750mg iv q12h. Labs: Sodium 141 mmol/L (136-145) 12/19/21 05:37 Potassium 4.5 mmol/L (3.5-5.1) 12/19/21 05:37 Chloride 110 mmol/L (98-107) H 12/19/21 05:37 Carbon Dioxide 27.0 mmol/L (21.0-32.0) 12/19/21 05:37 Anion Gap 4 (5-15) L 12/19/21 05:37 BUN 31 mg/dL (7-18) H 12/19/21 05:37 Creatinine 0.99 mg/dL (0.55-1.02) 12/19/21 05:37 Est GFR (MDRD) Af Amer 72 mL/min (>60) 12/19/21 05:37 Est GFR (MDRD) Non-Af 60 mL/min (>60) 12/19/21 05:37 BUN/Creatinine Ratio 31.4 RATIO (10-20) H 12/19/21 05:37 Glucose 195 mg/dL (74-106) H 12/19/21 05:37 Vancomycin Trough 21.4 ug/mL (5.0-15.0) H 12/19/21 00:35 Random Vancomycin 19.9 ug/mL (0.0-15.0) H 12/19/21 18:30 Microbiology: Microbiology 12/16/21 Unknown Tissue - Great Toe Gram Stain - Final 12/16/21 Unknown Tissue - Great Toe Wound Culture - Final Corynebacterium striatum Staphylococcus haemolyticus 12/16/21 Unknown Tissue - Great Toe Anaerobic Culture - Preliminary Checking for anaerobes, further studies to foll ow. 12/16/21 Unknown Tissue - Great Toe Gram Stain - Final 12/16/21 Unknown Tissue - Great Toe Wound Culture - Final No growth aerobically. 12/16/21 Unknown Tissue - Great Toe Anaerobic Culture - Preliminary No growth in 48 hours. 12/13/21 19:15 Wound Drainage - Toe Gram Stain - Final 12/13/21 19:15 Wound Drainage - Toe Wound Culture - Final Corynebacterium striatum Yeast, not Jennifer albicans Enterococcus faecalis 12/13/21 19:15 Wound Drainage - Toe Anaerobic Culture - Final No anaerobic bacteria isolated. 12/16/21 Unknown Bone - Great Toe Gram Stain - Final 12/16/21 Unknown Bone - Great Toe Wound Culture - Preliminary Corynebacterium striatum 12/16/21 Unknown Bone - Great Toe Anaerobic Culture - Preliminary Checking for anaerobes, further studies to follow. 12/13/21 14:05 Blood Culture (Wb) - Anticubital Left Blood Culture - Final No growth in 5 days. 12/13/21 13:40 Blood Culture (Wb) - Right Wrist Blood Culture - Final No growth in 5 days. Weight used for dosin.5 kg Estimated Creatinine Clearance: 66 ml/min Goal Trough: 15-20 mcg/mL Pharmacy Plan for Drug Dosing: Trough earlier today was 21.4 and since >20, further dosing held. New trough now (10.24 @1830) was 19.9. CrCl calculated to be ~66ml/min using adjusted body weight of 74.2kg. Will start new dosing at 500mg iv q12h and get a new trough before 4th dose. Pharmacy Service will continue to monitor and adjust dosing as required. Follow-Up Labs: Trough Vancomycin
[2021-12-19] MEDS: Montelukast 10 MG Tablet PO (22:28)
[2021-12-19] MEDS: Mirtazapine 30 MG Tablet PO (22:29)
[2021-12-19] MEDS: traZODone 100 MG Tablet PO (22:29)
[2021-12-19] MEDS: Vancomycin IV 500 MG/100 ML BAG 100 MG IV (22:30)
[2021-12-19] MEDS: Insulin Glargine-YFGN 100 UNIT/ML Pen 35 UNIT SC (22:31)
[2021-12-19] MEDS: Atorvastatin Calcium 40 MG Tablet PO (22:32)
[2021-12-19 23:11] LABS: Bedside Glucose 268 mg/dL (74-106)
[2021-12-20] VITALS (11 sets, daily range): BP systolic 147–166; BP diastolic 65–88; PULSE 88–99; RESP 18–20; TEMP 36.6–36.8; O2SAT 95–100
[2021-12-20 03:15] LABS: Bedside Glucose 238 mg/dL (74-106)
--- NOTE | 2021-12-20 03:22 | PCM.HOSP.N ---
Hospitalist Note Earlier in the evening, patient was complaining of shortness of breath and her albuterol was resumed. Notified later by nursing that patient was belly breathing. When evaluated the patient and patient was using her abdomen to breathe while she was sleeping. When I woke her, patient was awake, though confused but was not in any respiratory distress nor having any conversational dyspnea. Her use of her abdomen for breathing stopped when she was awake. Lung exam was clear. I do not feel any additional testing is necessary at this time, including ABG.
--- NOTE | 2021-12-20 03:44 | CPS ---
RT asked by RN to check on patient's breathing. Patient confused with increased WOB/ belly breathing. Recommended ABG to rule out hypercapnia. Dr. Wilson denied need for ABG at this time
[2021-12-20] MEDS: Levothyroxine 100 MCG Tablet PO (05:27)
[2021-12-20] MEDS: Nystatin Powder 15gm Bottle 1 APPLIC TOPICAL ×3 (05:27→19:43)
[2021-12-20 06:49] LABS: Absolute Lymphocyte Count 0.95 X10^3/uL (0.83-4.51); Absolute Neutrophil Count 6.3 X10^3/uL (2.0-7.7); Basophil# 0.05 X10^3/uL; Basophil% 0.6 % (0-1); Eosinophil# 0.04 X10^3/uL; Eosinophils% 0.5 % (0-5); Hematocrit 26.4 % (37-47); Hemoglobin 8.3 g/dL (12.0-15.0); Lymphocyte # 0.95 X10^3/ul (0.83-4.51); Lymphocyte % 12.1 % (19-41); Mean Corp Hgb Conc 31.4 g/dL (32-36); Mean Corpuscular Hgb 28.4 pg (27.0-32.0); Mean Corpuscular Volume 90.4 fL (81-99); Mean Platelet Vol. 10.8 fl (6.2-12.0); Monocyte# 0.46 X10^3/uL; Monocyte% 5.8 % (0-10); NRBC Flagged by Analyzer 0 % (0-5); Neutrophil # 6.34 X10^3/uL (2.7-7.7); Neutrophil % 80.5 % (47-70); Platelet Count 148 K/mm3 (150-450); RBC Distribution Width CV 16.7 % (11.6-14.6); Red Blood Count 2.92 M/mm3 (4.2-5.4); White Blood Count 7.9 K/mm3 (4.4-11.0)
[2021-12-20 07:05] LABS: Bedside Glucose 268 mg/dL (74-106)
[2021-12-20 07:16] LABS: Anion Gap 6 (5-15); BUN 32 mg/dL (7-18); BUN/Creat Ratio 34.7 RATIO (10-20); Calcium,Total 10.1 mg/dL (8.5-10.1); Chloride 109 mmol/L (98-107); Creatinine, Serum 0.92 mg/dL (0.55-1.02); EST Glomerular Filtration Rate 65 mL/min (>60); Est Glom Filt Rate - Afr Amer 78 mL/min (>60); Estimated Creatinine Clearance 54.86 ml/min; Glucose 257 mg/dL (74-106); Potassium 4.8 mmol/L (3.5-5.1); Sodium Level 138 mmol/L (136-145)
--- NOTE | 2021-12-20 07:54 | CASEMGMT ---
Discharge Customer Experience Intern This specifications writer was notified by Myriam Silverman that [facility] accepted patient. Ruben MEAD Threader Operator
[2021-12-20] MEDS: Insulin Lispro 100 UNIT/ML INSULN.PEN SC ×4 (08:25→21:12)
[2021-12-20] MEDS: Insulin Lispro 100 UNIT/ML INSULN.PEN 10 UNIT SC ×3 (08:25→16:40)
[2021-12-20] MEDS: Polyethylene Glycol 3350 17 GM PACKET PO (08:30)
[2021-12-20] MEDS: Menthol/Lanolin/Calamine/Znox 113 GM Tube 1 APPLIC TOPICAL ×2 (08:33→19:42)
[2021-12-20] MEDS: Aspirin E.C. 81 MG Tablet PO (08:33)
[2021-12-20] MEDS: Juven (unflavored) Packet 1 PACKET PO ×2 (08:33→16:40)
[2021-12-20] MEDS: Pantoprazole Sodium 40 MG Tablet PO ×2 (08:34→21:06)
[2021-12-20] MEDS: Metoprolol(XL)Succ 50 MG Tablet PO ×2 (08:34→21:06)
[2021-12-20] MEDS: Fluconazole 100 MG Tablet 200 MG PO (08:34)
[2021-12-20] MEDS: Senna/Docusate Sodium 1 Tablet PO ×2 (08:34→21:06)
[2021-12-20] MEDS: Heparin Injection (Vial) 5,000 UNIT/ML VIAL 5000 UNIT SC ×2 (08:38→21:07)
[2021-12-20] MEDS: Vancomycin IV 500 MG/100 ML BAG 100 MG IV ×2 (09:05→21:05)
[2021-12-20 11:15] LABS: Bedside Glucose 248 mg/dL (74-106)
[2021-12-20] MEDS: Ferrous Sulfate 325 MG Tablet PO (11:49)
[2021-12-20] MEDS: Acetaminophen 325 MG Tablet 650 MG PO ×2 (11:51→19:42)
--- NOTE | 2021-12-20 12:07 | PCM.PROGNOTE ---
Subjective Subjective Patient was seen this morning for follow up on heel ulcerations and left foot partial 1st ray amputation. Patient is day 4 postop. Patient denies any nausea vomiting chest pain calf pain shortness of breath. Patient denies any diarrhea. Patient denies any other issues at this time notes pain worse at night. Objective Data Objective Data Vital Signs: Vital Signs Temp Pulse Resp BP Pulse Ox O2 Del Method O2 Flow Rate 98.0 F 97 20 H 152/72 H 100 Nasal Cannula 3 12/20/21 09:05 12/20/21 09:05 12/20/21 09:05 12/20/21 09:05 12/20/21 09:05 12/20/21 09:05 12/20/21 09:05 Oxygen Flow Rate (L/min) 3 Oxygen Delivery Method Nasal Cannula Weight: 100.5 kg Body Mass Index (BMI) 36.8 Intake & Output: Intake and Output for Last 24 Hours 12/18/21 12/19/21 12/20/21 23:59 23:59 23:59 Intake Total 1651.5 / 1651.5 1716 / 1716 700 / 700 Output Total 1000 / 1000 600 / 600 Balance 651.5 / 651.5 1716 / 1716 100 / 100 Lab / Micro Data Result Diagrams: 12/20/21 06:27 12/20/21 06:27 Labs: Laboratory Results - last 24 hr 12/19/21 12:35: POC Glucose 308 H 12/19/21 16:55: POC Glucose 253 H 12/19/21 18:30: Random Vancomycin 19.9 H 12/19/21 22:20: POC Glucose 268 H 12/20/21 02:52: POC Glucose 238 H 12/20/21 06:27: WBC 7.9, RBC 2.92 L, Hgb 8.3 L, Hct 26.4 L, MCV 90.4, MCH 28.4, MCHC 31.4 L, RDW Std Deviation 55.0 H, RDW Coeff of Magen 16.7 H, Plt Count 148 L, MPV 10.8, Immature Gran % (Auto) 0.500, Neut % (Auto) 80.5 H, Lymph % (Auto) 12.1 L, [place] % (Auto) 5.8, Eos % (Auto) 0.5, Baso % (Auto) 0.6, Absolute Neuts (auto) 6.3, Absolute Lymphs (auto) 0.95, Nucleated RBC % 0 12/20/21 06:27: Sodium 138, Potassium 4.8, Chloride 109 H, Carbon Dioxide 23.0, Anion Gap 6, BUN 32 H, Creatinine 0.92, Estim Creat Clear Calc 54.86, Est GFR (MDRD) Af Amer 78, Est GFR (MDRD) Non-Af 65, BUN/Creatinine Ratio 34.7 H, Glucose 257 H, Calcium 10.1 12/20/21 06:43: POC Glucose 268 H 12/20/21 10:56: POC Glucose 248 H Micro: Microbiology 12/16/21 Unknown Tissue - Great Toe Gram Stain - Final 12/16/21 Unknown Tissue - Great Toe Wound Culture - Final Corynebacterium striatum Staphylococcus haemolyticus 12/16/21 Unknown Tissue - Great Toe Anaerobic Culture - Final No anaerobic bacteria isolated. 12/16/21 Unknown Bone - Great Toe Gram Stain - Final 12/16/21 Unknown Bone - Great Toe Wound Culture - Preliminary Corynebacterium striatum 12/16/21 Unknown Bone - Great Toe Anaerobic Culture - Final No anaerobic bacteria isolated. 12/16/21 Unknown Tissue - Great Toe Gram Stain - Final 12/16/21 Unknown Tissue - Great Toe Wound Culture - Final No growth aerobically. 12/16/21 Unknown Tissue - Great Toe Anaerobic Culture - Preliminary No growth in 48 hours. 12/13/21 19:15 Wound Drainage - Toe Gram Stain - Final 12/13/21 19:15 Wound Drainage - Toe Wound Culture - Final Corynebacterium striatum Yeast, not Jennifre albicans Enterococcus faecalis 12/13/21 19:15 Wound Drainage - Toe Anaerobic Culture - Final No anaerobic bacteria isolated. 12/13/21 14:05 Blood Culture (Wb) - Anticubital Left Blood Culture - Final No growth in 5 days. 12/13/21 13:40 Blood Culture (Wb) - Right Wrist Blood Culture - Final No growth in 5 days. Physical Exam Narrative s/p left partial 1st ray amputation with intact sutures, no dehiscence, no evidence of complications - some ecchymosis, erythema and swelling to the site c/w surgery. This is resolving at the time. Bilateral heel ulcerations down to subcutaneous tissue with no evidence of infection. Otherwise skin intact, CFT < 2 seconds to all toes, no evidence of DVT, no evidence of acute ischemia bilateral foot/ankle/leg, decreased sensation to foot - chronic in nature, no evidence of acute [place] neuroarthropathy or compartment syndrome bilateral foot/ankle/leg. Const alert, oriented x3 and no apparent distress General Appearance: cooperative HEENT normocephalic Eyes General Eye: normal appearance of both eyes Neck General: normal visual inspection Lymph Lymphatic: no lymphadenopathy noted and no lymphedema noted Resp normal respiratory effort Cardio regular rate Extremity no calf tenderness and no pedal edema Extremity Narrative: Left foot: DP and PT weakly palpable. DP monophasic on Doppler. PT biphasic on Doppler. Capillary fill time to the digits of the left foot is less than 5 seconds. Right foot: DP and PT palpable. Capillary fill time is less than 5 seconds. Skin no rashes or lesions noted, skin turgor normal and no jaundice General Skin Exam: erythema Wound Narrative: Right foot: Posterior heel decubitus ulceration demonstrates stable eschar. No signs of infection. Left foot: Posterior heel decubitus ulceration x2 with stable eschar. No signs of infection. Left hallux amputation stump demonstrates ulceration with black, necrotic tissue at the wound margin with yellow crusting/hyperkeratosis surrounding the eschar. Central aspect of the wound demonstrates dense fibrotic tissue with some serosanguineous drainage. Ulceration probes to bone of the first metatarsal head with a small area of likely exposed metatarsal head wound margins also demonstrate erythema extending dorsally onto the foot. No palpable bogginess, no fluctuance, no purulent drainage, no malodor. There is pain about the ulcerative site. Neuro moves all extremities Psych cooperative Assessment & Plan Assessment/Plan (1) Foot osteomyelitis, left: (2) Foot ulcer, left: (3) Non-pressure chronic ulcer of right heel and midfoot with fat layer exposed: (4) Type 2 diabetes mellitus with foot ulcer: PLAN: Plan Evaluation performed. Patient is s/p left partial 1st ray amputation on 12/16/21 - site healing well. Some residual residual erythema edema noted to the incisional site. This may represent early incisional dehiscence versus residual cellulitis. Infectious disease on this on board due to residual erythema edema possible wound breakdown I recommend continued antibiotics IV into discharge Patient should maintain a nonweightbearing status for left lower extremity PICC line ordered per infectious disease 10 days a weeks. Patient awaiting SNF placement. Ordered arterial studies to evaluate bilateral lower extremity vascular status as I did not see any previous arterial studies and the patient's history. Will continue to follow daily.
--- NOTE | 2021-12-20 15:55 | CASEMGMT ---
Social Work SW notified pt of acceptance at [facility]. Made pt aware that insurance auth still needs to be obtained. Pt voiced understanding. Plan: [facility], pending precert JAYY Georges
[2021-12-20] MEDS: Ketorolac 15 MG/ML Vial IV (16:44)
[2021-12-20] MEDS: Psyllium 1 PACKET PO (16:44)
[2021-12-20] MEDS: 0.9% Saline Lock 10 ML Syringe IV ×2 (16:44→19:43)
--- NOTE | 2021-12-20 16:57 | PCM.PN.HOSP ---
Subjective Subjective Patient was seen and examined today, she continues to exhibit some mild confusion, she seemed understand that she was awaiting approval for transfer to [facility] for skilled care however. Objective Data Objective Data Vital Signs: Vital Signs Temp Pulse Resp BP Pulse Ox O2 Del Method O2 Flow Rate 97.9 F 99 18 153/72 H 100 Nasal Cannula 3 12/20/21 14:50 12/20/21 14:50 12/20/21 14:50 12/20/21 14:50 12/20/21 14:50 12/20/21 14:50 12/20/21 14:50 Oxygen Flow Rate (L/min) 3 Oxygen Delivery Method Nasal Cannula Weight: 100.5 kg Body Mass Index (BMI) 36.8 Intake & Output: Intake and Output for Last 24 Hours 12/18/21 12/19/21 12/20/21 23:59 23:59 23:59 Intake Total 1651.5 / 1651.5 1716 / 1716 700 / 700 Output Total 1000 / 1000 600 / 600 Balance 651.5 / 651.5 1716 / 1716 100 / 100 Lab / Micro Data Result Diagrams: 12/20/21 06:27 12/20/21 06:27 Labs: Laboratory Results - last 24 hr 12/19/21 16:55: POC Glucose 253 H 12/19/21 18:30: Random Vancomycin 19.9 H 12/19/21 22:20: POC Glucose 268 H 12/20/21 02:52: POC Glucose 238 H 12/20/21 06:27: WBC 7.9, RBC 2.92 L, Hgb 8.3 L, Hct 26.4 L, MCV 90.4, MCH 28.4, MCHC 31.4 L, RDW Std Deviation 55.0 H, RDW Coeff of Magen 16.7 H, Plt Count 148 L, MPV 10.8, Immature Gran % (Auto) 0.500, Neut % (Auto) 80.5 H, Lymph % (Auto) 12.1 L, [place] % (Auto) 5.8, Eos % (Auto) 0.5, Baso % (Auto) 0.6, Absolute Neuts (auto) 6.3, Absolute Lymphs (auto) 0.95, Nucleated RBC % 0 12/20/21 06:27: Sodium 138, Potassium 4.8, Chloride 109 H, Carbon Dioxide 23.0, Anion Gap 6, BUN 32 H, Creatinine 0.92, Estim Creat Clear Calc 54.86, Est GFR (MDRD) Af Amer 78, Est GFR (MDRD) Non-Af 65, BUN/Creatinine Ratio 34.7 H, Glucose 257 H, Calcium 10.1 12/20/21 06:43: POC Glucose 268 H 12/20/21 10:56: POC Glucose 248 H Micro: Microbiology 12/16/21 Unknown Tissue - Great Toe Gram Stain - Final 12/16/21 Unknown Tissue - Great Toe Wound Culture - Final Corynebacterium striatum Staphylococcus haemolyticus 12/16/21 Unknown Tissue - Great Toe Anaerobic Culture - Final No anaerobic bacteria isolated. 12/16/21 Unknown Bone - Great Toe Gram Stain - Final 12/16/21 Unknown Bone - Great Toe Wound Culture - Preliminary Corynebacterium striatum 12/16/21 Unknown Bone - Great Toe Anaerobic Culture - Final No anaerobic bacteria isolated. 12/16/21 Unknown Tissue - Great Toe Gram Stain - Final 12/16/21 Unknown Tissue - Great Toe Wound Culture - Final No growth aerobically. 12/16/21 Unknown Tissue - Great Toe Anaerobic Culture - Preliminary No growth in 48 hours. 12/13/21 19:15 Wound Drainage - Toe Gram Stain - Final 12/13/21 19:15 Wound Drainage - Toe Wound Culture - Final Corynebacterium striatum Yeast, not Jennifer albicans Enterococcus faecalis 12/13/21 19:15 Wound Drainage - Toe Anaerobic Culture - Final No anaerobic bacteria isolated. 12/13/21 14:05 Blood Culture (Wb) - Anticubital Left Blood Culture - Final No growth in 5 days. 12/13/21 13:40 Blood Culture (Wb) - Right Wrist Blood Culture - Final No growth in 5 days. Physical Exam Const alert and no apparent distress Constitutional Narrative: Patient appears older than her stated age General Appearance: cooperative, well kempt and well developed Orientation / Consciousness: awake, oriented to person and oriented to place HEENT normocephalic, head/scalp atraumatic and moist oral mucous membranes Eyes PERRL, EOMs intact bilaterally and conjunctivae normal Neck supple, no JVD, thyroid normal and no carotid bruits General: trachea midline Resp normal respiratory effort, no retractions, no use of accessory muscles and clear to auscultation bilaterally Auscultation: Negative for rales, rhonchi or wheezes Cardio regular rate, regular rhythm, S1 normal heart sound, S2 normal heart sound, no murmurs, no rub and no gallops GI normal to inspection, nondistended, normoactive bowel sounds, soft to palpation, non-tender and non-distended Extremity no clubbing, cyanosis or edema Skin Skin Narrative: Patient's left foot is wrapped with surgical dressing, this was not removed for inspection of the area Neuro oriented x3, CN's II-XII intact bilaterally, moves all extremities, no focal motor deficits and no sensory deficits noted Sensorium / Orientation: awake, alert, oriented to person and oriented to place Speech: speech normal Psych Psych Narrative: Patient exhibits mild confusion Assessment & Plan Assessment/Plan (1) Type 2 diabetes mellitus with foot ulcer: PLAN: Plan 1. 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 Patient will need placement in a long term facility due to nonweightbearing on the left foot, we are currently awaiting approval for transfer to a long term facility. #2 type 2 diabetes-patient's blood sugars will be monitored, sliding scale insulin will be used, patient is on basal insulin and short acting insulin in addition. 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
[2021-12-20 17:45] LABS: Bedside Glucose 276 mg/dL (74-106)
[2021-12-20] MEDS: Mirtazapine 30 MG Tablet PO (21:06)
[2021-12-20] MEDS: traZODone 100 MG Tablet PO (21:06)
[2021-12-20] MEDS: Atorvastatin Calcium 40 MG Tablet PO (21:06)
[2021-12-20] MEDS: Montelukast 10 MG Tablet PO (21:07)
[2021-12-20] MEDS: Insulin Glargine-YFGN 100 UNIT/ML Pen 35 UNIT SC (21:12)
[2021-12-20 21:40] LABS: Bedside Glucose 155 mg/dL (74-106)
[2021-12-21] VITALS (8 sets, daily range): BP systolic 138–145; BP diastolic 71–78; PULSE 86–88; RESP 18–20; TEMP 36.3–36.6; O2SAT 95–100
[2021-12-21] MEDS: Nystatin Powder 15gm Bottle 1 APPLIC TOPICAL ×2 (05:02→11:13)
[2021-12-21] MEDS: Levothyroxine 100 MCG Tablet PO (05:02)
[2021-12-21 07:06] LABS: Basophil# 0.04 X10^3/uL; Basophil% 0.6 % (0-1); Eosinophil# 0.15 X10^3/uL; Eosinophils% 2.3 % (0-5); Hematocrit 26.2 % (37-47); Hemoglobin 8.3 g/dL (12.0-15.0); Lymphocyte % 13.7 % (19-41); Mean Corp Hgb Conc 31.7 g/dL (32-36); Mean Corpuscular Hgb 28.9 pg (27.0-32.0); Mean Corpuscular Volume 91.3 fL (81-99); Mean Platelet Vol. 10.7 fl (6.2-12.0); Monocyte# 0.42 X10^3/uL; Monocyte% 6.4 % (0-10); NRBC Flagged by Analyzer 0 % (0-5); Neutrophil # 5.03 X10^3/uL (2.7-7.7); Neutrophil % 76.2 % (47-70); Platelet Count 154 K/mm3 (150-450); RBC Distribution Width SD 57.1 fl (35.1-43.9); Red Blood Count 2.87 M/mm3 (4.2-5.4); White Blood Count 6.6 K/mm3 (4.4-11.0)
[2021-12-21 07:49] LABS: Anion Gap 5 (5-15); BUN 32 mg/dL (7-18); BUN/Creat Ratio 32.6 RATIO (10-20); Calcium,Total 10.1 mg/dL (8.5-10.1); Chloride 108 mmol/L (98-107); Creatinine, Serum 0.98 mg/dL (0.55-1.02); EST Glomerular Filtration Rate 60 mL/min (>60); Est Glom Filt Rate - Afr Amer 73 mL/min (>60); Glucose 187 mg/dL (74-106); Potassium 4.4 mmol/L (3.5-5.1); Sodium Level 140 mmol/L (136-145)
[2021-12-21] MEDS: Insulin Lispro 100 UNIT/ML INSULN.PEN SC ×2 (07:54→11:11)
[2021-12-21] MEDS: Insulin Lispro 100 UNIT/ML INSULN.PEN 10 UNIT SC ×2 (07:54→11:11)
[2021-12-21] MEDS: Polyethylene Glycol 3350 17 GM PACKET PO (08:01)
[2021-12-21] MEDS: Metoprolol(XL)Succ 50 MG Tablet PO (08:01)
[2021-12-21] MEDS: Aspirin E.C. 81 MG Tablet PO (08:01)
[2021-12-21] MEDS: Juven (unflavored) Packet 1 PACKET PO (08:01)
[2021-12-21] MEDS: Senna/Docusate Sodium 1 Tablet PO (08:01)
[2021-12-21] MEDS: Heparin Injection (Vial) 5,000 UNIT/ML VIAL 5000 UNIT SC (08:02)
[2021-12-21] MEDS: Fluconazole 100 MG Tablet 200 MG PO (08:02)
[2021-12-21] MEDS: Pantoprazole Sodium 40 MG Tablet PO (08:02)
[2021-12-21] MEDS: Menthol/Lanolin/Calamine/Znox 113 GM Tube 1 APPLIC TOPICAL (08:03)
[2021-12-21] MEDS: 0.9% Saline Lock 10 ML Syringe IV (08:12)
[2021-12-21 08:40] LABS: Bedside Glucose 226 mg/dL (74-106)
--- NOTE | 2021-12-21 08:40 | WOUNDNOTE ---
wound photo: left foot
[2021-12-21] MEDS: Vancomycin IV 500 MG/100 ML BAG 100 MG IV (08:44)
[2021-12-21 09:24] LABS: Vancomycin, Trough Level 23.6 ug/mL (5.0-15.0)
[2021-12-21] MEDS: Lactated Ringers 1,000 ML 15 ML IV (09:27)
[2021-12-21] MEDS: Ferrous Sulfate 325 MG Tablet PO (11:13)
--- NOTE | 2021-12-21 11:26 | PCM.TXEXTCAR ---
Diet Diet Order/Speech Therapy: 12/13/21 17:17 Diet: Consistent Carb - Calorie Controlled Food consistency:: Regular Liquid Consistency:: Regular/Thin Dietary Modifications:: Cardiac / Heart Healthy Is pt able to select menu?: No How many daily calories?: 1800 calorie Routine Orders/Code Status O2 Liters per Minute: 3 O2 Frequency: Continuous Routine Lab Work: - (fingerstick blood sugars ACQHS, Humalog sq per scale: 200-250: 5 units, 251-300: 8 units, 301-350: 12 units, 351-400: 15 units) Code Status: DNRCC-A (no intubation) Wound(s) Left great toe: Wound Type: Neuropathic/Diabetic Foot Ulcer left heel: Wound Type: Pressure Injury Dressing Change: betadine with well padded dressing left posterolateral heel: Wound Type: Pressure Injury Dressing Change: betadine and well padded dressing left great toe amputation site: Wound Type: Surgical Incision Dressing Change: betadine gauze (wash area with soap and water daily, apply betadine paint with adaptic dressing and cover with sterile dressing) right heel: Wound Type: Pressure Injury Dressing Change: betadine with well padded dressing left top of foot: Wound Type: Surgical Incision Therapies Weight Bearing: Non weight bearing Physical Therapy: Eval and Treat Occupational Therapy: Eval and Treat Problem/Diagnosis (1) Type 2 diabetes mellitus with foot ulcer: Status: Chronic Code(s): E11.621 - Type 2 diabetes mellitus with foot ulcer; L97.509 - Non-pressure chronic ulcer of other part of unspecified foot with unspecified severity (2) Foot ulcer, left: Status: Acute Code(s): L97.529 - Non-pressure chronic ulcer of other part of left foot with unspecified severity (3) Foot osteomyelitis, left: Status: Acute Code(s): M86.9 - Osteomyelitis, unspecified (4) Diabetic polyneuropathy: Status: Chronic Code(s): E11.42 - Type 2 diabetes mellitus with diabetic polyneuropathy (5) Chronic obstructive pulmonary disease: Status: Chronic Code(s): J44.9 - Chronic obstructive pulmonary disease, unspecified (6) Coronary artery disease: Status: Chronic Code(s): I25.10 - Atherosclerotic heart disease of [place] coronary artery without angina pectoris (7) Depression: Status: Chronic Code(s): F32.A - Depression, unspecified (8) Diabetes mellitus: Status: Chronic Code(s): E11.9 - Type 2 diabetes mellitus without complications (9) Chronic respiratory failure with hypoxia: Status: Chronic Code(s): J96.11 - Chronic respiratory failure with hypoxia Plan 1. 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 Patient will need [facility] in a [facility] facility due to nonweightbearing on the left foot, we are currently awaiting approval for transfer to a penitentiary facility. #2 type 2 diabetes-patient's blood sugars will be monitored, sliding scale insulin will be used, patient is on basal insulin and short acting insulin in addition. 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-complicates care, management, recovery, and prognosis #7 hyperlipidemia-patient is on Lipitor #8 coronary artery disease-patient is on aspirin and metoprolol #9 chronic hypoxic respiratory failure-patient is on nasal cannula oxygen #10 chronic obstructive pulmonary disease-complicates care, management, recovery, and prognosis #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-wound care nurse is participating in her care Allergies/Procedures Done in Hospital Allergies doxycycline Allergy (Verified 12/13/21 16:30) NEEDS FOLLOW-UP latex Allergy (Verified 12/13/21 16:30) NEEDS FOLLOW-UP Sulfa (Sulfonamide Antibiotics) Allergy (Verified 11/22/21 10:13) Anaphylaxis sulfur dioxide Allergy (Verified 11/22/21 10:13) Anaphylaxis atorvastatin Adverse Reaction (Verified 12/13/21 16:30) Other muscle pain oxycodone Adverse Reaction (Verified 12/13/21 12:48) Other makes me crazy Procedures: - (Left first ray partial amputation 12/16/21) Type of Care/Length of Stay Estimated LOS: Convalescent Care Less Than 30 days Type of Care Needed: Skilled Rehab Potential: Good Prognosis: Good Additional Orders/Day of Discharge Additional Orders: Follow up at [facility] in one week to see Dr. No (podiatry)-call for appointment H&P will serve as current which was dated: 12/13/21 Day of Discharge: 12/21/21 Dietary and Speech Recommendations Dietitian Recommendations/Changes: Continue 1800 calorie Consistent Carbohydrate/Cardiac diet. Continue Say BID with mepass to promote wound healing. Plans for SNF at d/c, diet education as needed. Follow Up Care Please follow up with your Primary Care Physician in: see above Discharge Plan Admission Admit Date/Time: 12/13/21 14:58 Primary Reason for Your Visit: left great toe infection Attending Provider: Christophe Corbin Primary Care Provider: Geoavnna Mott TABLET MACHINE OPERATOR Consulting Providers: Alejandro Mosher ; Noah No ; Nagi Ayala ; Quynh Aldrich Instructions Additional Instructions / Restrictions: Patient has adverse affect to any narcotic for pain and becomes confused Discharge Orders/Prescriptions Prescriptions: New fluconazole 100 mg Tablet 200 mg PO DAILY 5 Days Qty: 10 0RF vancomycin 1.25 gram recon soln 1.25 g IV Q24H Qty: 10 0RF Rx Instructions: dx: L foot osteo weekly bmp, cbc, esr, and vanc trough. Fax to [phone] routine picc care per protocol acetaminophen [Tylenol] 325 mg Tablet 650 mg PO Q6H PRN PRN (Reason: Pain 1-10 Or Fever >100.7) Qty: 0 0RF ferrous sulfate [FeroSul] 325 mg (65 mg iron) Tablet 325 mg PO LUNCH Qty: 0 0RF insulin lispro [Humalog KwikPen Insulin] 100 unit/mL Insulin Pen 10 unit subcut TIDAC Qty: 0 0RF Say (with collagen) 7-7-1.5 gram Powder In Packet 1 packet PO BIDCM Qty: 0 0RF polyethylene glycol 3350 17 gram Powder In Packet 17 g PO DAILY Qty: 0 0RF mirtazapine 30 mg Tablet 30 mg PO QHS Qty: 0 0RF nystatin [Nyamyc] 100,000 unit/gram Powder 1 applic topical TID Qty: 0 0RF Protocol: *Topical Application Instructions APPLICATION INSTRUCTIONS: apply to groin tid for redness Continued aspirin [Adult Aspirin Regimen] 81 mg tablet,delayed release (DR/EC) 81 mg PO DAILY Levemir FlexTouch U-100 Insuln 100 unit/mL (3 mL) insulin pen 35 unit SUBCUT QHS pantoprazole 40 mg tablet,delayed release (DR/EC) 40 mg PO BID metoprolol succinate 50 mg tablet extended release 24 hr 50 mg PO BID sennosides-docusate sodium [Senna-S] 8.6-50 mg Tablet 1 tab PO BID levothyroxine [Synthroid] 100 mcg tablet 100 mcg PO DAILY Label Comments: 1 TABLET BY MOUTH EVERYAMORNING @6AM/ NURSE TO REORDER trazodone 100 mg tablet 100 mg PO QHS Label Comments: 1 TABLET BY MOUTH ATIBEDTIME / NURSE TO REORDER montelukast 10 mg tablet 10 mg PO QHS Label Comments: 1 TABLET BY MOUTH ATSBEDTIME / NURSE TO=REORDER;3D gabapentin 100 mg capsule 200 mg PO TID Label Comments: 2 CAPSULES (200MG) BYAMOUTH THREE TIMES A DAY/ NURSE TO REORDER atorvastatin 40 mg tablet 40 mg PO QHS albuterol sulfate 90 mcg/actuation HFA aerosol inhaler 2 puff INHALATION 4X/DAY PRN PRN (Reason: Shortness Of Breath Or Wheezing) Label Comments: 2 PUFFS BY MOUTH FOUR TIMES A DAY NEEDED Discontinued furosemide 80 mg Tablet 80 mg PO DAILY Hold Instructions: Resume on 11/10/21. potassium chloride 20 mEq tablet,ER particles/crystals 20 meq PO DAILY Label Comments: 1 TABLET BY MOUTH DAILY /INURSE TO REORDER mirtazapine 30 mg tablet 30 mg PO QHS Label Comments: 1 TABLET BY MOUTH ATIBEDTIME / NURSE TO REORDER insulin lispro 100 unit/mL insulin pen See Protocol SUBCUT TIDCM Protocol: 6. Sliding Scale Insulin Custom Condition: mg/dl range Dose/Route: Number of Units Condition: 151-200 Dose/Route: 2 Condition: 201-250 Dose/Route: 4 Condition: 251-300 Dose/Route: 6 Condition: 301-350 Dose/Route: 8 Condition: 351-400 Dose/Route: 10 Instruction: NOTIFLaw ROSS Protocol Text: Custom Sliding Scale Label Comments: 2 UNITS SUB-Q BEFORE(MEALS PLUS SLIDING SCALE 0-150=0 UNITS SUB-Q; 151-200=2U; 201-250=4U; 251-300=6U; 301-350=8U; 351-400=10U AND NOTIFY aripiprazole [Abilify] 10 mg tablet 10 mg PO QHS Label Comments: 1 TABLET BY MOUTH ATIBEDTIME / NURSE TO REORDER Trulicity 0.75 mg/0.5 mL pen injector 0.75 mg SUBCUT WE insulin lispro [Humalog KwikPen Insulin] 100 unit/mL insulin pen 2 unit subcut TIDAC Prostat Liquid-sugar free 30 oz PO/SL BID Referrals / Follow Up: Noah No DPM [Med Staff - Active Staff] - See Referral Note (at [facility] in one week-call for appointment) Geovanna Mott TABLET MACHINE OPERATOR, TABLET MACHINE OPERATOR-C [Primary Care Provider] - Disposition Disposition (needs filled in before D/C Order can be placed): Longterm Facility
--- NOTE | 2021-12-21 12:06 | PCM.RX.CS ---
Consult Pharmacy has been consulted to manage selected antiobiotic: Vancomycin Type of Consult: Follow-up Prior Doses of Antibiotics Received/Current Regimen: current dose is vanc 500mg IV q12h Labs: Sodium 140 mmol/L (136-145) 12/21/21 06:00 Potassium 4.4 mmol/L (3.5-5.1) 12/21/21 06:00 Chloride 108 mmol/L (98-107) H 12/21/21 06:00 Carbon Dioxide 27.0 mmol/L (21.0-32.0) 12/21/21 06:00 Anion Gap 5 (5-15) 12/21/21 06:00 BUN 32 mg/dL (7-18) H 12/21/21 06:00 Creatinine 0.98 mg/dL (0.55-1.02) 12/21/21 06:00 Est GFR (MDRD) Af Amer 73 mL/min (>60) 12/21/21 06:00 Est GFR (MDRD) Non-Af 60 mL/min (>60) 12/21/21 06:00 BUN/Creatinine Ratio 32.6 RATIO (10-20) H 12/21/21 06:00 Glucose 187 mg/dL (74-106) H 12/21/21 06:00 Vancomycin Trough 23.6 ug/mL (5.0-15.0) H 12/21/21 08:44 Random Vancomycin 19.9 ug/mL (0.0-15.0) H 12/19/21 18:30 Microbiology: Microbiology 12/16/21 Unknown Tissue - Great Toe Gram Stain - Final 12/16/21 Unknown Tissue - Great Toe Wound Culture - Final Corynebacterium striatum Staphylococcus haemolyticus 12/16/21 Unknown Tissue - Great Toe Anaerobic Culture - Final No anaerobic bacteria isolated. 12/16/21 Unknown Bone - Great Toe Gram Stain - Final 12/16/21 Unknown Bone - Great Toe Wound Culture - Preliminary Corynebacterium striatum 12/16/21 Unknown Bone - Great Toe Anaerobic Culture - Final No anaerobic bacteria isolated. 12/16/21 Unknown Tissue - Great Toe Gram Stain - Final 12/16/21 Unknown Tissue - Great Toe Wound Culture - Final No growth aerobically. 12/16/21 Unknown Tissue - Great Toe Anaerobic Culture - Preliminary No growth in 48 hours. 12/13/21 19:15 Wound Drainage - Toe Gram Stain - Final 12/13/21 19:15 Wound Drainage - Toe Wound Culture - Final Corynebacterium striatum Yeast, not Jennifer albicans Enterococcus faecalis 12/13/21 19:15 Wound Drainage - Toe Anaerobic Culture - Final No anaerobic bacteria isolated. 12/13/21 14:05 Blood Culture (Wb) - Anticubital Left Blood Culture - Final No growth in 5 days. 12/13/21 13:40 Blood Culture (Wb) - Right Wrist Blood Culture - Final No growth in 5 days. Weight used for dosin.5 kg Estimated Creatinine Clearance: 67ml/min Goal Trough: 15-20 mcg/mL Pharmacy Plan for Drug Dosing: The vanc trough drawn at 08:44 today (approximately 12 hours after the previous dose) was 23.6. The next dose was then scanned in as being given at 08:04 (about a half hour before the trough was drawn) but in speaking with the nurse, it was scanned at 08:04 but not actually started infusing until after the trough was drawn at 08:44 so this had no effect on the trough value being high. Since the trough is above 23.6, will hold further dosing at this time and drawn a random level in 24 hours. Further dosing to be determined from there. The patient's CrCl of 67ml/min was calculated using an adjusted body weight of 74.4kg. Pharmacy Service will continue to monitor and adjust dosing as required. Follow-Up Labs: Trough Vancomycin - random Labs to be done on [date and time ordered]: 12/22/21 08:30
--- NOTE | 2021-12-21 12:14 | CASEMGMT ---
Addendum entered by Ebonie Grewal 12/21/21 13:39: GREG set up cot transportation through [employer] for 2:30pm. Notified pt, pt son, and pt nurse of transport time. GREG faxed discharge orders to [facility] via [employer] ([place]) and notified of transport time. GREG placed original discharge orders in envelope to go with pt and copies of orders on pt chart. Dispo: [facility], skilled, convalescent level of care JAYY Georges Original Note: Social Work SW received message via [employer] that pt precert has been obtained. SW notified pt and pt's Dr. Pt is medically ready to discharge. Sw completed 7000 convalescent form in [employer]. GREG received pc from pt's son Chava, who reports not happy with pt going to [facility]. GREG explained pt picked SNF on own and was of sound mind when doing so. GREG explained pt chose [facility] several days ago. Chava discussed unhappy with this choice and that pt was given wrong meds. GREG unaware of wrong meds being given to pt and informed Chava of this and that discussing with medical professional would be best. Chava declined. GREG explained pt could transfer from [facility] to new facility upon discharge. Chava requested SW confirm this with pt's Dr as Chava hoping pt can remain at [facility] until new SNF could be obtained. GREG offered education on how the process works and that if would likely take 2-3 more days and pt is medically ready to discharge at this time. Chava GARZA confirm with that pt leaves today. GREG called pt to discuss. Dr. Corbin stated pt is medically ready and could not remain at hospital when accepting facility is ready and insurance has approved. GREG called pt son, Chava back to report 's decision. Chava unhappy but accepting of decision. GREG educated Chava on how to begin process of pt transferring by working with SW at [facility]. Chava voiced understanding. PLAN: [facility], today. JAYY Georges
--- NOTE | 2021-12-21 14:15 | PCM.PN.ID ---
Physical Exam Narrative Feeling well, discharge planned. Const alert and no apparent distress Resp normal air movement and clear to auscultation bilaterally Cardio regular rate and regular rhythm GI soft to palpation, non-tender and non-distended Skin no rashes or lesions noted ID ID: Route of nutrition/ use of supplements: [] Nutritional Intake: [] IV Site: [] Knight Catheter: [] Assessment & Plan Assessment/Plan (1) Foot osteomyelitis, left: PLAN: S/p L hallux amp 10/21/[address] No. Surg cx at that time with proteus. Wound cx now with corynebacter, e faecalis, and yeast. On vanc/ceftriaxone/fluc. Taken to OR 12/[address] No for distal 1st ray resection. Clearance cx neg so far. Has picc, 10 days iv vanc and short course po fluc. Will follow, ID followup in 1 week
--- NOTE | 2021-12-21 15:23 | PCM.DC.SUM ---
Providers Date of Admission: 12/13/21 Date of Discharge: 12/21/21 Primary Care Physician: Geovanna Mott, SREEDHAR-Jeremiah Consultations 12/13/21 17:16 Consult: Onc/Wound/cathode ray tube assembler Routine Comment: Reason for Consult:: left foot ulcer 12/13/21 17:18 Consult: Podiatry Routine Consulting Provider: Noah No Reason for Consult: left non healing foot ulcer EMERGENT Consult: No MD Notified: Yes Date Notified: 12/13/21 Time Notified: 17:20 Method of Notification: Text 12/13/21 17:26 Consult: Infectious Disease Routine Consulting Provider: Alejandro Mosher Reason for Consult: left foot nonhealing ulcer EMERGENT Consult: No MD Notified: Yes Date Notified: 12/13/21 Time Notified: 17:26 Method of Notification: Text Reason For Visit: LEFT FOOT WOUND, POSITIVE CULTURE Diagnosis Discharge Diagnosis (1) Foot osteomyelitis, left: Status: Acute Code(s): M86.9 - Osteomyelitis, unspecified Plan 1. 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 Patient will need placement in a fdc facility due to nonweightbearing on the left foot, we are currently awaiting approval for transfer to a fdc facility. #2 type 2 diabetes-patient's blood sugars will be monitored, sliding scale insulin will be used, patient is on basal insulin and short acting insulin in addition. 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-complicates care, management, recovery, and prognosis #7 hyperlipidemia-patient is on Lipitor #8 coronary artery disease-patient is on aspirin and metoprolol #9 chronic hypoxic respiratory failure-patient is on nasal cannula oxygen #10 chronic obstructive pulmonary disease-complicates care, management, recovery, and prognosis #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-wound care nurse is participating in her care Medications at Discharge Home Medications aspirin 81 mg tablet,delayed release (Adult Aspirin Regimen) 81 mg PO DAILY heart 05/17/21 insulin detemir U-100 100 unit/mL (3 mL) subcutaneous pen (Levemir FlexTouch U-100 Insulin) 35 unit subcut QHS blood sugar 09/02/21 pantoprazole 40 mg tablet,delayed release 40 mg PO BID GERD 10/22/21 metoprolol succinate 50 mg tablet,extended release 24 hr 50 mg PO BID BP 11/08/21 atorvastatin 40 mg tablet 40 mg PO QHS CHOLESTEROL 12/13/21 gabapentin 100 mg capsule 200 mg PO TID NERVE PAIN 12/13/21 levothyroxine 100 mcg tablet (Synthroid) 100 mcg PO DAILY THYROID 12/13/21 montelukast 10 mg tablet 10 mg PO QHS ALLERGIES 12/13/21 sennosides 8.6 mg-docusate sodium 50 mg tablet (Senna-S) 1 tab PO BID STOOL SOFTNER 12/13/21 trazodone 100 mg tablet 100 mg PO QHS SLEEP 12/13/21 albuterol sulfate 90 mcg/actuation aerosol inhaler 2 puff inhalation 4X/DAY PRN PRN Shortness Of Breath Or Wheezing 12/19/21 fluconazole 100 mg tablet 200 mg PO DAILY 5 days #10 tabs 12/19/21 vancomycin 1.25 gram intravenous solution 1.25 g IV Q24H #10 ea 12/19/21 acetaminophen 325 mg tablet (Tylenol) 650 mg PO Q6H PRN PRN Pain 1-10 Or Fever >100.7 #0 tabs 12/21/21 arginine 7 gram-glutam 7 gram-CaHMB 1.5 [id number]-bu-min oral pwd pkt (Say (with collagen)) 1 packet PO BIDCM #0 ea 12/21/21 ferrous sulfate 325 mg (65 mg iron) tablet (FeroSul) 325 mg PO LUNCH #0 tabs 12/21/21 insulin lispro 100 unit/mL subcutaneous pen (Humalog KwikPen (U-100) Insulin) 10 unit (0.1 mL) subcut TIDAC #0 mL 12/21/21 mirtazapine 30 mg tablet 30 mg PO QHS #0 tabs 12/21/21 nystatin 100,000 unit/gram topical powder (Nyamyc) 1 applic topical TID #0 grams 12/21/21 polyethylene glycol 3350 17 gram oral powder packet 17 g PO DAILY #0 ea 12/21/21 Hospital Course Operations - (Partial first ray resection left foot) Procedures PICC line placement Summary of Care Provided Minutes Spent on Discharge: 31 Hospital Course: This 66-year-old white female was seen in the emergency room at [facility] after being sent in from her assisted living facility due to an outpatient culture of a wound on her left foot that was positive for bacteria. Lab obtained in the emergency room showed a normal white blood cell count, chemistry profile was remarkable for a creatinine of 1.15 and a BUN of 19. C-reactive protein was elevated at 401 and sed rate was 82. Left foot x-rays were performed and showed no evidence of subcutaneous air or gas and no obvious bony erosion. Patient was admitted to [place] [address], she received IV antibiotics and IV fluids, blood sugars were monitored, she was seen in consultation by podiatry and underwent a partial ray resection of the left great toe. She was seen in consultation by infectious diseases who directed her antibiotic treatment. She was seen by PT and OT and was felt to benefit from inpatient skilled care, this was set up for the patient. Patient had some confusion during her hospital stay, discontinued through the time she was discharged to fdc facility. Exact etiology of this confusion was unknown. On 12/21/2021, patient was seen and examined: On examination she appeared in good health and spirits, she does not appear to be in any distress. Vital signs as documented. Skin warm and dry and without overt rashes. Neck without JVD, thyroid appears normal, trachea is midline, neck is supple. Lungs clear, normal air movement was noted. Heart exam notable for regular rhythm, normal sounds and absence of murmurs, rubs or gallops. Abdomen unremarkable and without evidence of organomegaly, masses, or abdominal aortic enlargement, bowel sounds are present in all 4 quadrants, no abdominal tenderness was noted. Extremities nonedematous, no cyanosis was noted, no clubbing was noted. Neuro: Cranial nerves II through XII are grossly intact, no focal motor deficits were noted, sensation to light touch and pinprick is intact, motor exam 5/5 throughout. Psych: Patient is alert and oriented x3, she does not appear anxious or depressed, she does not appear agitated. Patient appears stable for discharge to an extended care facility for inpatient skilled services. Weight / BMI Weight Weight: 100.5 kg Body Mass Index (BMI) 36.8 ABG / Lab / Microbiology Data Result Diagrams: 12/21/21 06:00 12/21/21 06:00 Laboratory: Laboratory Results - last 24 hr 12/20/21 16:39: POC Glucose 276 H 12/20/21 21:11: POC Glucose 155 H 12/21/21 06:00: WBC 6.6, RBC 2.87 L, Hgb 8.3 L, Hct 26.2 L, MCV 91.3, MCH 28.9, MCHC 31.7 L, RDW Std Deviation 57.1 H, RDW Coeff of Magen 17.0 H, Plt Count 154, MPV 10.7, Immature Gran % (Auto) 0.800, Neut % (Auto) 76.2 H, Lymph % (Auto) 13.7 L, [place] % (Auto) 6.4, Eos % (Auto) 2.3, Baso % (Auto) 0.6, Absolute Neuts (auto) 5.0, Absolute Lymphs (auto) 0.90, Nucleated RBC % 0 12/21/21 06:00: Sodium 140, Potassium 4.4, Chloride 108 H, Carbon Dioxide 27.0, Anion Gap 5, BUN 32 H, Creatinine 0.98, Estim Creat Clear Calc 51.50, Est GFR (MDRD) Af Amer 73, Est GFR (MDRD) Non-Af 60, BUN/Creatinine Ratio 32.6 H, Glucose 187 H, Calcium 10.1 12/21/21 07:48: POC Glucose 226 H 12/21/21 08:44: Vancomycin Trough 23.6 H Microbiology: Microbiology 12/21/21 11:42 Nasal Secretion SARS-CoV-2 Antigen (Rapid) - Final 12/16/21 Unknown Tissue - Great Toe Gram Stain - Final 12/16/21 Unknown Tissue - Great Toe Wound Culture - Final Corynebacterium striatum Staphylococcus haemolyticus 12/16/21 Unknown Tissue - Great Toe Anaerobic Culture - Final No anaerobic bacteria isolated. 12/16/21 Unknown Bone - Great Toe Gram Stain - Final 12/16/21 Unknown Bone - Great Toe Wound Culture - Preliminary Corynebacterium striatum 12/16/21 Unknown Bone - Great Toe Anaerobic Culture - Final No anaerobic bacteria isolated. 12/16/21 Unknown Tissue - Great Toe Gram Stain - Final 12/16/21 Unknown Tissue - Great Toe Wound Culture - Final No growth aerobically. 12/16/21 Unknown Tissue - Great Toe Anaerobic Culture - Preliminary No growth in 48 hours. 12/13/21 19:15 Wound Drainage - Toe Gram Stain - Final 12/13/21 19:15 Wound Drainage - Toe Wound Culture - Final Corynebacterium striatum Yeast, not Jennifer albicans Enterococcus faecalis 12/13/21 19:15 Wound Drainage - Toe Anaerobic Culture - Final No anaerobic bacteria isolated. 12/13/21 14:05 Blood Culture (Wb) - Anticubital Left Blood Culture - Final No growth in 5 days. 12/13/21 13:40 Blood Culture (Wb) - Right Wrist Blood Culture - Final No growth in 5 days. Meaningful Use Info Meaningful Use Diagnoses (Choose all that apply): None applicable Discharge Plan Admission Admit Date/Time: 12/13/21 14:58 Primary Reason for Your Visit: left great toe infection Attending Provider: Christophe Corbin Primary Care Provider: Geovanna Mott [employer] Consulting Providers: Alejandro Mosher ; Noah No ; Nagi Ayala ; Quynh Aldrich Instructions Additional Instructions / Restrictions: Patient has adverse affect to any narcotic for pain and becomes confused Discharge Orders/Prescriptions Prescriptions: New fluconazole 100 mg Tablet 200 mg PO DAILY 5 Days Qty: 10 0RF vancomycin 1.25 gram recon soln 1.25 g IV Q24H Qty: 10 0RF Rx Instructions: dx: L foot osteo weekly bmp, cbc, esr, and vanc trough. Fax to [phone] routine picc care per protocol acetaminophen [Tylenol] 325 mg Tablet 650 mg PO Q6H PRN PRN (Reason: Pain 1-10 Or Fever >100.7) Qty: 0 0RF ferrous sulfate [FeroSul] 325 mg (65 mg iron) Tablet 325 mg PO LUNCH Qty: 0 0RF insulin lispro [Humalog KwikPen Insulin] 100 unit/mL Insulin Pen 10 unit subcut TIDAC Qty: 0 0RF Say (with collagen) 7-7-1.5 gram Powder In Packet 1 packet PO BIDCM Qty: 0 0RF polyethylene glycol 3350 17 gram Powder In Packet 17 g PO DAILY Qty: 0 0RF mirtazapine 30 mg Tablet 30 mg PO QHS Qty: 0 0RF nystatin [Nyamyc] 100,000 unit/gram Powder 1 applic topical TID Qty: 0 0RF Protocol: *Topical Application Instructions APPLICATION INSTRUCTIONS: apply to groin tid for redness Continued aspirin [Adult Aspirin Regimen] 81 mg tablet,delayed release (DR/EC) 81 mg PO DAILY Levemir FlexTouch U-100 Insuln 100 unit/mL (3 mL) insulin pen 35 unit SUBCUT QHS pantoprazole 40 mg tablet,delayed release (DR/EC) 40 mg PO BID metoprolol succinate 50 mg tablet extended release 24 hr 50 mg PO BID sennosides-docusate sodium [Senna-S] 8.6-50 mg Tablet 1 tab PO BID levothyroxine [Synthroid] 100 mcg tablet 100 mcg PO DAILY Label Comments: 1 TABLET BY MOUTH EVERYAMORNING @6AM/ NURSE TO REORDER trazodone 100 mg tablet 100 mg PO QHS Label Comments: 1 TABLET BY MOUTH ATIBEDTIME / NURSE TO REORDER montelukast 10 mg tablet 10 mg PO QHS Label Comments: 1 TABLET BY MOUTH ATSBEDTIME / NURSE TO=REORDER;3D gabapentin 100 mg capsule 200 mg PO TID Label Comments: 2 CAPSULES (200MG) BYAMOUTH THREE TIMES A DAY/ NURSE TO REORDER atorvastatin 40 mg tablet 40 mg PO QHS albuterol sulfate 90 mcg/actuation HFA aerosol inhaler 2 puff INHALATION 4X/DAY PRN PRN (Reason: Shortness Of Breath Or Wheezing) Label Comments: 2 PUFFS BY MOUTH FOUR TIMES A DAY NEEDED Discontinued furosemide 80 mg Tablet 80 mg PO DAILY Hold Instructions: Resume on 11/10/21. potassium chloride 20 mEq tablet,ER particles/crystals 20 meq PO DAILY Label Comments: 1 TABLET BY MOUTH DAILY /INURSE TO REORDER mirtazapine 30 mg tablet 30 mg PO QHS Label Comments: 1 TABLET BY MOUTH ATIBEDTIME / NURSE TO REORDER insulin lispro 100 unit/mL insulin pen See Protocol SUBCUT TIDCM Protocol: 6. Sliding Scale Insulin Custom Condition: mg/dl range Dose/Route: Number of Units Condition: 151-200 Dose/Route: 2 Condition: 201-250 Dose/Route: 4 Condition: 251-300 Dose/Route: 6 Condition: 301-350 Dose/Route: 8 Condition: 351-400 Dose/Route: 10 Instruction: NOTIFY Protocol Text: Custom Sliding Scale Label Comments: 2 UNITS SUB-Q BEFORE(MEALS PLUS SLIDING SCALE 0-150=0 UNITS SUB-Q; 151-200=2U; 201-250=4U; 251-300=6U; 301-350=8U; 351-400=10U AND NOTIFY aripiprazole [Abilify] 10 mg tablet 10 mg PO QHS Label Comments: 1 TABLET BY MOUTH ATIBEDTIME / NURSE TO REORDER Trulicity 0.75 mg/0.5 mL pen injector 0.75 mg SUBCUT WE insulin lispro [Humalog KwikPen Insulin] 100 unit/mL insulin pen 2 unit subcut TIDAC Prostat Liquid-sugar free 30 oz PO/SL BID Referrals / Follow Up: Noah No DPM [Med Staff - Active Staff] - See Referral Note (at [facility] wound center in one week-call for appointment) Geovanna Mott [employer], [employer] INSTRUCTOR-C [Primary Care Provider] - Disposition Disposition (needs filled in before D/C Order can be placed): Intermediate Facility Charges/Coding Visit Charges Inpatient E&M: 51712 Disch Hosp
[2021-12-21 16:25] LABS: Bedside Glucose 208 mg/dL (74-106)
== END 2021-12-21 14:30 | disposition skilled nursing facility (03) | DRG 617 ==
LOC: ED 14:51 → MS3 15:14
PROVIDERS: Anesthesiology; Student in an Organized Health Care Education/Training Program; Admitting Provider Internal Medicine; Emergency Provider Emergency Medicine; PCP Nurse Practitioner Adult Health; Visit Provider Internal Medicine
PROC: 0Y6N0Z9 Detachment at Left Foot, Partial 1st Ray, Open Approach (ICD-10-PCS; CPT 28805; principal; 2021-12-16 14:00)
DX: E11.69 Type 2 diabetes mellitus with other specified complication (principal); J96.11 Chronic respiratory failure with hypoxia; I13.0 Hypertensive heart and chronic kidney disease with heart failure and stage 1 through stage 4 chronic kidney disease, or unspecified chronic kidney disease; L03.115 Cellulitis of right lower limb; I50.32 Chronic diastolic (congestive) heart failure; M86.8X7 Other osteomyelitis, ankle and foot; L03.116 Cellulitis of left lower limb; E11.21 Type 2 diabetes mellitus with diabetic nephropathy; B95.2 Enterococcus as the cause of diseases classified elsewhere; L89.610 Pressure ulcer of right heel, unstageable; E11.621 Type 2 diabetes mellitus with foot ulcer; E11.42 Type 2 diabetes mellitus with diabetic polyneuropathy; E11.22 Type 2 diabetes mellitus with diabetic chronic kidney disease; E11.65 Type 2 diabetes mellitus with hyperglycemia; N18.32 Chronic kidney disease, stage 3b; Z79.4 Long term (current) use of insulin; J44.9 Chronic obstructive pulmonary disease, unspecified; E11.51 Type 2 diabetes mellitus with diabetic peripheral angiopathy without gangrene; I48.91 Unspecified atrial fibrillation; L89.620 Pressure ulcer of left heel, unstageable; D50.9 Iron deficiency anemia, unspecified; E03.9 Hypothyroidism, unspecified; I25.10 Atherosclerotic heart disease of native coronary artery without angina pectoris; E78.5 Hyperlipidemia, unspecified; E55.9 Vitamin D deficiency, unspecified; I25.2 Old myocardial infarction; G47.33 Obstructive sleep apnea (adult) (pediatric); F41.9 Anxiety disorder, unspecified; Y92.239 Unspecified place in hospital as the place of occurrence of the external cause; B96.89 Other specified bacterial agents as the cause of diseases classified elsewhere; T40.605A Adverse effect of unspecified narcotics, initial encounter; F32.A Depression, unspecified; E66.9 Obesity, unspecified; Z68.36 Body mass index [BMI] 36.0-36.9, adult; Z66 Do not resuscitate; Z23 Encounter for immunization; Z99.81 Dependence on supplemental oxygen; Z79.82 Long term (current) use of aspirin; Z79.890 Hormone replacement therapy; Z79.899 Other long term (current) drug therapy; Z95.5 Presence of coronary angioplasty implant and graft; Z87.891 Personal history of nicotine dependence
CPT/HCPCS: 36415; 36569; 73630; 73718; 76000; 80048; 80202; 82962; 83036; 84100; 84134; 84443; 85025; 85610; 85652; 85730; 86140; 87015; 87040; 87070; 87075; 87077; 87102; 87116; 87176; 87186; 87205; 87206; 87426; 87640; 88305; 88311; 93005; 97110; 97162; 97166; 97530; 97535; 97802; 99251; 99285; G0008; J7030; J7040; J7050; J7120; 90686; A4216; G0463; J0696; J2405

== ENCOUNTER 2021-12-28 08:25 | Emergency (ER) | payer MEDICARE, MEDICAID, SELFPAY ==
[2021-12-28 08:25] VITALS: BP 167/107; PULSE 101; RESP 19; TEMP 36.9; O2SAT 99; BMI 39.7
--- NOTE | 2021-12-28 08:44 | ED.VIS.FALL ---
HPI HPI - Fall History of Present Illness Chief Complaint: Fall Informant: patient Occured/Mechanism Occurred: Today Mechanism/Context: Yes same level fall Pain/Injury Location: Right forehead and periorbital area Pain Location: head and face Quality of Pain: Aching and Burning Worsened by: Nothing Relieved by: Nothing Associated Symptoms Associated Symptoms: Negative for Parasthesias, Weakness, Loss of function, Loss of consciousness or Amnesia Narrative Narrative: Patient presents with a head injury that occurred today. Patient fell at the custodial today. Patient normally transfers with a Ethan lift. Patient attempted to transfer by herself today. Patient fell and hit her head on the nightstand. Patient denies any loss of consciousness. Patient denies any paresthesias or weakness. EMS reports that the patient's mental status is at her baseline. Patient describes her pain as aching and burning. Patient states her pain is over the right frontal area. [facility] Medical History Acute cervical myofascial strain Acute on chronic respiratory failure with hypoxemia Amputated toe of left foot Anemia Asthma Atherosclerotic heart disease of [place] coronary artery without angina pectoris Atrial fibrillation CAD (coronary artery disease) CHF (congestive heart failure) Chronic heart failure with preserved ejection fraction (HFpEF) Chronic heel ulcer Chronic respiratory failure with hypoxia, on home oxygen therapy Chronic ulcer of great toe of left foot Closed head injury Congestive heart failure (CHF) COPD (chronic obstructive pulmonary disease) Current use of insulin Decubitus ulcer of dorsum of foot, stage 2 Decubitus ulcer of left heel, stage 2 Decubitus ulcer of left heel, stage 3 Decubitus ulcer, heel, left, unstageable Depression Diabetes mellitus with diabetic polyneuropathy Diabetes type 2, controlled Diabetic foot ulcers Diverticulitis Essential hypertension Former smoker History of amputation of left great toe History of non-ST elevation myocardial infarction (NSTEMI) (02/24/17) Hyperlipidemia Hypothyroid Myocardial infarct Non-rheumatic tricuspid valve insufficiency Nondisplaced fracture of distal phalanx of right great toe, initial encounter for closed fracture Nonrheumatic mitral (valve) insufficiency Obesity Obstructive sleep apnea On home O2 Renal insufficiency Secondary pulmonary arterial hypertension Type 2 diabetes mellitus Home Medications aspirin 81 mg tablet,delayed release (Adult Aspirin Regimen) 81 mg PO DAILY heart 05/17/21 [History Last Taken 12/13/21] insulin detemir U-100 100 unit/mL (3 mL) subcutaneous pen (Levemir FlexTouch U-100 Insulin) 35 unit subcut QHS blood sugar 09/02/21 [History Last Taken 12/12/21] pantoprazole 40 mg tablet,delayed release 40 mg PO BID GERD 10/22/21 [History Last Taken 12/13/21] metoprolol succinate 50 mg tablet,extended release 24 hr 50 mg PO BID BP 11/08/21 [History Last Taken 12/13/21] atorvastatin 40 mg tablet 40 mg PO QHS CHOLESTEROL 12/13/21 [History Last Taken 12/12/21] gabapentin 100 mg capsule 200 mg PO TID NERVE PAIN 12/13/21 [History Last Taken 12/13/21] levothyroxine 100 mcg tablet (Synthroid) 100 mcg PO DAILY THYROID 12/13/21 [History Last Taken 12/13/21] montelukast 10 mg tablet 10 mg PO QHS ALLERGIES 12/13/21 [History Last Taken Unknown] sennosides 8.6 mg-docusate sodium 50 mg tablet (Senna-S) 1 tab PO BID STOOL SOFTNER 12/13/21 [History Last Taken 12/13/21] trazodone 100 mg tablet 100 mg PO QHS SLEEP 12/13/21 [History Last Taken 12/12/21] albuterol sulfate 90 mcg/actuation aerosol inhaler 2 puff inhalation 4X/DAY PRN PRN Shortness Of Breath Or Wheezing 12/19/21 [History Last Taken Unknown] fluconazole 100 mg tablet 200 mg PO DAILY 5 days #10 tabs 12/19/21 [Rx Last Taken Unknown] vancomycin 1.25 gram intravenous solution 1.25 g IV Q24H #10 ea 12/19/21 [Rx Last Taken Unknown] acetaminophen 325 mg tablet (Tylenol) 650 mg PO Q6H PRN PRN Pain 1-10 Or Fever >100.7 #0 tabs 12/21/21 [Rx Last Taken Unknown] arginine 7 gram-glutam 7 gram-CaHMB 1.5 [id number]-sy-min oral pwd pkt (Say (with collagen)) 1 packet PO BIDCM #0 ea 12/21/21 [Rx Last Taken Unknown] ferrous sulfate 325 mg (65 mg iron) tablet (FeroSul) 325 mg PO LUNCH #0 tabs 12/21/21 [Rx Last Taken Unknown] insulin lispro 100 unit/mL subcutaneous pen (Humalog KwikPen (U-100) Insulin) 10 unit (0.1 mL) subcut TIDAC #0 mL 12/21/21 [Rx Last Taken Unknown] mirtazapine 30 mg tablet 30 mg PO QHS #0 tabs 12/21/21 [Rx Last Taken Unknown] nystatin 100,000 unit/gram topical powder (Nyamyc) 1 applic topical TID #0 grams 12/21/21 [Rx Last Taken Unknown] polyethylene glycol 3350 17 gram oral powder packet 17 g PO DAILY #0 ea 12/21/21 [Rx Last Taken Unknown] Allergy/AdvReac Type Severity Reaction Status Date / Time doxycycline Allergy NEEDS Verified 12/28/21 08:30 FOLLOW-UP latex Allergy NEEDS Verified 12/28/21 08:30 FOLLOW-UP Sulfa (Sulfonamide Allergy Anaphylaxis Verified 12/28/21 08:30 Antibiotics) sulfur dioxide Allergy Anaphylaxis Verified 12/28/21 08:30 atorvastatin AdvReac Other Verified 12/28/21 08:30 oxycodone AdvReac Other Verified 12/28/21 08:30 Family History Grandmother Diabetes Mother Heart disease Surgical History H/O right heart catheterization History of cataract surgery History of coronary artery stent placement (02/24/17) History of heart artery stent Tubal ligation status Social History household members: none housing: other details: [facility] Living. Smoking Status: Former smoker how long ago did patient quit smokin alcohol intake: former year quit: 1999 substance use type: does not use caffeine: Yes Type: carbonated beverages and tea ROS ROS ED Constitutional Constitutional ED: Denies chills or fever(s) Eyes Eyes: Denies blurry vision or change in vision ENT ENT ED: Denies rhinorrhea or sore throat Cardiovascular Cardiovascular: Denies chest pain or palpitations Respiratory/Chest Respiratory/Chest: Denies cough or dyspnea Gastrointestinal Gastrointestinal: Denies nausea or vomiting Genitourinary Genitourinary ED: Denies dysuria or hematuria Musculoskeletal Musculoskeletal: Denies back pain or neck pain Integumentary Denies abscess or rash Neurologic Neurologic: Reports headache(s); Denies weakness Allergic/Immunologic Allergic/Immunologic ED: Denies mouth swelling or urticaria EXAM Physical Exam Const Vital Signs: 12/28/21 08:25 12/28/21 08:25 12/28/21 08:30 Temperature 98.4 F Temperature Source Temporal Pulse Rate 101 H Respiratory Rate 19 H Respiratory Effort Normal Respiratory Depth Normal Blood Pressure 167/107 H Blood Pressure Mean 127 Pulse Ox 99 Oxygen Delivery Method Room Air Warm Humidified Isolette Room Air Positive well nourished, well developed and obese General Appearance ED: well developed and NAD Nutritional Appearance: obese HEENT Reports moist mucous membranes HEENT Narrative: There is a hematoma over the right forehead and periorbital area. There is no bony crepitance or step-off. contusion and hematoma Eyes PERRL and EOMs intact bilaterally Neck supple and no JVD Resp normal respiratory effort and clear to auscultation bilaterally Cardio regular rate, regular rhythm and no murmurs GI normal to inspection, nondistended, normoactive bowel sounds and non-tender Palpation: soft Extremity normal to inspection General Extremety ED: Negative for edema or tenderness General Extremity: Negative for edema Neuro oriented x3, CN's II-XII intact bilaterally, moves all extremities, no focal motor deficits and no sensory deficits noted Sensorium / Orientation: alert Motor Exam: strength 5/5 throughout Psych mental status grossly normal Skin no rashes or lesions noted MDM MDM MDM Narrative Medical decision making narrative: CT scan of the brain was obtained. There is no acute intracranial abnormality. There are chronic changes noted. There is also scalp hematoma over the right frontal area. There is no fracture noted. This was interpreted by the radiologist and reviewed by myself. Patient is feeling better on reevaluation. Patient was instructed to use ice to the area. Patient was instructed to follow-up with her primary care physician in 5 to 7 days for reevaluation. Patient understood and was agreeable with the plan. All questions were answered. Radiography Diagnostic Testing: Clinical Impression(s) from Imaging Studies Brain CT 12/28/21 08:47 IMPRESSION: Chronic involutional changes of the brain. Scalp hematoma overlying the right frontal bone. Electronically Signed: Butch Ling MD at 9:32 EDT , Discharge Plan Triage Chief Complaint: Fall ED Provider: Izaiah Hardin Dx/Rx/DC Orders Clinical Impression: Head injury without concussion or intracranial hemorrhage, Fall Instructions: ED Head Injury (Adult) Prescriptions: No Action aspirin [Adult Aspirin Regimen] 81 mg tablet,delayed release (DR/EC) 81 mg PO DAILY Levemir FlexTouch U-100 Insuln 100 unit/mL (3 mL) insulin pen 35 unit SUBCUT QHS pantoprazole 40 mg tablet,delayed release (DR/EC) 40 mg PO BID metoprolol succinate 50 mg tablet extended release 24 hr 50 mg PO BID sennosides-docusate sodium [Senna-S] 8.6-50 mg Tablet 1 tab PO BID levothyroxine [Synthroid] 100 mcg tablet 100 mcg PO DAILY Label Comments: 1 TABLET BY MOUTH EVERYAMORNING @6AM/ NURSE TO REORDER trazodone 100 mg tablet 100 mg PO QHS Label Comments: 1 TABLET BY MOUTH ATIBEDTIME / NURSE TO REORDER montelukast 10 mg tablet 10 mg PO QHS Label Comments: 1 TABLET BY MOUTH ATSBEDTIME / NURSE TO=REORDER;3D gabapentin 100 mg capsule 200 mg PO TID Label Comments: 2 CAPSULES (200MG) BYAMOUTH THREE TIMES A DAY/ NURSE TO REORDER atorvastatin 40 mg tablet 40 mg PO QHS fluconazole 100 mg Tablet 200 mg PO DAILY 5 Days Qty: 10 0RF vancomycin 1.25 gram recon soln 1.25 g IV Q24H Qty: 10 0RF Rx Instructions: dx: L foot osteo weekly bmp, cbc, esr, and vanc trough. Fax to [phone] routine picc care per protocol albuterol sulfate 90 mcg/actuation HFA aerosol inhaler 2 puff INHALATION 4X/DAY PRN PRN (Reason: Shortness Of Breath Or Wheezing) Label Comments: 2 PUFFS BY MOUTH FOUR TIMES A DAY NEEDED acetaminophen [Tylenol] 325 mg Tablet 650 mg PO Q6H PRN PRN (Reason: Pain 1-10 Or Fever >100.7) Qty: 0 0RF ferrous sulfate [FeroSul] 325 mg (65 mg iron) Tablet 325 mg PO LUNCH Qty: 0 0RF insulin lispro [Humalog KwikPen Insulin] 100 unit/mL Insulin Pen 10 unit subcut TIDAC Qty: 0 0RF Say (with collagen) 7-7-1.5 gram Powder In Packet 1 packet PO BIDCM Qty: 0 0RF polyethylene glycol 3350 17 gram Powder In Packet 17 g PO DAILY Qty: 0 0RF mirtazapine 30 mg Tablet 30 mg PO QHS Qty: 0 0RF nystatin [Nyamyc] 100,000 unit/gram Powder 1 applic topical TID Qty: 0 0RF Protocol: *Topical Application Instructions APPLICATION INSTRUCTIONS: apply to groin tid for redness Primary Care Provider: Geovanna Mott [facility] Referrals: Geovanna Mott [facility]AN[facility], [facility] [Primary Care Provider] - 5-7 Days Disposition Disposition: Home, Self Care
--- NOTE | 2021-12-28 08:47 | CT_ITS ---
STUDY: CT BRAIN WITHOUT CONTRAST REASON FOR EXAM: Female, 66 years old. Head injury due to a fall. RADIATION DOSAGE (If Supplied By Facility): CTDIvol = ( 44.99 ) mGy, DLP = ( 846.73 ) mGycm TECHNIQUE: Transaxial CT imaging of the brain was performed without administration of intravenous contrast material. Individualized dose optimization techniques were used for this CT. COMPARISON: No relevant priors. FINDINGS: Skull hematoma overlying the frontal bone. Normal calvarium. There is mild cerebral atrophy with widening of the extra-axial spaces and ventricular dilatation. Normal white matter tracts of the cerebral hemispheres. There is evidence of a cavum septum lucidum. Normal basal ganglia and thalami. Normal brainstem. Normal cerebellum. There is no intracranial hemorrhage. There are no findings of an acute ischemic infarction. Atherosclerotic calcification of the vertebral arteries and cavernous portions of the internal carotid arteries bilaterally. Normal visualized paranasal sinuses. CT/Brain/Head without Contrast IMPRESSION: Chronic involutional changes of the brain. Scalp hematoma overlying the right frontal bone. Electronically Signed: Butch Ling MD at 9:32 EDT ,
[2021-12-28 10:00] VITALS: BP 148/72; PULSE 84; RESP 16; O2SAT 96
== END 2021-12-28 10:45 | disposition home or self-care (01) ==
PROVIDERS: Emergency Provider Emergency Medicine; PCP Nurse Practitioner Adult Health; Visit Provider Emergency Medicine
DX: S00.03XA Contusion of scalp, initial encounter (principal); J44.9 Chronic obstructive pulmonary disease, unspecified; I11.0 Hypertensive heart disease with heart failure; I50.32 Chronic diastolic (congestive) heart failure; E11.42 Type 2 diabetes mellitus with diabetic polyneuropathy; J96.11 Chronic respiratory failure with hypoxia; Z79.4 Long term (current) use of insulin; S05.11XA Contusion of eyeball and orbital tissues, right eye, initial encounter; W01.190A Fall on same level from slipping, tripping and stumbling with subsequent striking against furniture, initial encounter; Y92.129 Unspecified place in nursing home as the place of occurrence of the external cause; I25.10 Atherosclerotic heart disease of native coronary artery without angina pectoris; E78.5 Hyperlipidemia, unspecified; E66.9 Obesity, unspecified; Z79.82 Long term (current) use of aspirin; Z99.81 Dependence on supplemental oxygen; Z79.890 Hormone replacement therapy; Z79.899 Other long term (current) drug therapy; Z87.891 Personal history of nicotine dependence
CPT/HCPCS: 70450; 99284

== ENCOUNTER 2021-12-29 10:18 | Emergency (ER) | payer MEDICARE, MEDICAID, SELFPAY ==
[2021-12-29 10:19] VITALS: BP 114/52; PULSE 83; RESP 18; TEMP 36.8; O2SAT 100; BMI 39.0
--- NOTE | 2021-12-29 11:12 | EX.ED.DYSGE1 ---
HPI History of Present Illness Chief Complaint: General Illness Detail of Chief Complaint: Sent in because of altered mental status. Informant: patient, EMS and SNF Onset/Context/Timing Onset: Today and Hours Context: Sudden Onset Timing: Intermittent (Patient's mental status is not altered at the time of my evaluation) Quality: Concern patient has respiratory distress Location: Cardiopulmonary Current Severity: Moderate Maximum Severity: Moderate Worsened by: Uncertain Relieved by: Nothing Associated Symptoms Associated Symptoms: Nothing specific Narrative Narrative: Patient is a 66-year-old female with multiple medical problems who was sent in for evaluation because of altered mental status. She had a fall yesterday and was scanned which revealed no intracranial abnormality. Furthermore there was notes of skull fracture. Presently patient speech is slightly garbled. I suspect this is due to the fact that she has dry mucosa and tongue. She is oriented x3. She denies headache. She denies neck pain or neck stiffness. She does endorse shortness of breath. She states she has history of COPD and congestive heart failure. She also has numerous other medical issues and problems. She also informed me that she had recent surgery on her foot because of PAD. Prior similar symptoms: No Recent Illness/Hospitalization: Yes [facility] Medical History Acute cervical myofascial strain Acute on chronic respiratory failure with hypoxemia Acute respiratory failure with hypoxia Amputated toe of left foot Anemia Asthma Atherosclerotic heart disease of [place] coronary artery without angina pectoris Atrial fibrillation Atrial fibrillation with rapid ventricular response CAD (coronary artery disease) CHF (congestive heart failure) Chronic heart failure with preserved ejection fraction (HFpEF) Chronic heel ulcer Chronic respiratory failure with hypoxia, on home oxygen therapy Chronic ulcer of great toe of left foot Closed head injury Congestive heart failure (CHF) COPD (chronic obstructive pulmonary disease) Current use of insulin Decubitus ulcer of dorsum of foot, stage 2 Decubitus ulcer of left heel, stage 2 Decubitus ulcer of left heel, stage 3 Decubitus ulcer, heel, left, unstageable Depression Diabetes mellitus with diabetic polyneuropathy Diabetes type 2, controlled Diabetic foot ulcers Diverticulitis Essential hypertension Former smoker History of amputation of left great toe History of non-ST elevation myocardial infarction (NSTEMI) (02/24/17) Hyperlipidemia Hypothyroid Myocardial infarct Non-rheumatic tricuspid valve insufficiency Nondisplaced fracture of distal phalanx of right great toe, initial encounter for closed fracture Nonrheumatic mitral (valve) insufficiency Obesity Obstructive sleep apnea On home O2 Renal insufficiency Secondary pulmonary arterial hypertension Type 2 diabetes mellitus Vitamin D deficiency Home Medications aspirin 81 mg tablet,delayed release (Adult Aspirin Regimen) 81 mg PO DAILY heart 05/17/21 [History Last Taken 12/28/21] insulin detemir U-100 100 unit/mL (3 mL) subcutaneous pen (Levemir FlexTouch U-100 Insulin) 35 unit subcut QHS blood sugar 09/02/21 [History Last Taken 12/27/21] metoprolol succinate 50 mg tablet,extended release 24 hr 50 mg PO BID BLOOD PRESSURE 11/08/21 [History Last Taken 12/27/21] gabapentin 100 mg capsule 200 mg PO TID NERVE PAIN 12/13/21 [History Last Taken 12/28/21] levothyroxine 100 mcg tablet (Synthroid) 100 mcg PO DAILY THYROID 12/13/21 [History Last Taken 12/28/21] montelukast 10 mg tablet 10 mg PO QHS ALLERGIES 12/13/21 [History Last Taken 12/27/21] sennosides 8.6 mg-docusate sodium 50 mg tablet (Senna-S) 1 tab PO BID STOOL SOFTNER 12/13/21 [History Last Taken 12/27/21] trazodone 100 mg tablet 100 mg PO QHS SLEEP 12/13/21 [History Last Taken 12/27/21] albuterol sulfate 90 mcg/actuation aerosol inhaler 2 puff inhalation 4X/DAY PRN PRN Shortness Of Breath Or Wheezing 12/19/21 [History Last Taken Unknown] vancomycin 1.25 gram intravenous solution 1.25 g IV Q24H #10 ea 12/19/21 [Rx Last Taken 12/27/21] acetaminophen 325 mg tablet (Tylenol) 650 mg PO Q6H PRN PRN Pain 1-10 Or Fever >100.7 #0 tabs 12/21/21 [Rx Last Taken 12/27/21] arginine 7 gram-glutam 7 gram-CaHMB 1.5 [id number]-min oral pwd pkt (Say (with collagen)) 1 packet PO BIDCM #0 ea 12/21/21 [Rx Last Taken 12/27/21] mirtazapine 30 mg tablet 30 mg PO QHS #0 tabs 12/21/21 [Rx Last Taken 12/27/21] ferrous sulfate 325 mg (65 mg iron) tablet (FeroSul) 325 mg PO LUNCH SUPPLEMENT 12/28/21 [History Last Taken 12/27/21] fluconazole 200 mg tablet 200 mg PO DAILY 12/28/21 [History Last Taken Unknown] insulin lispro 100 unit/mL subcutaneous pen (Humalog KwikPen (U-100) Insulin) 10 unit subcut TIDAC DIABETES 12/28/21 [History Last Taken 12/27/21] nystatin 100,000 unit/gram topical powder (Nyamyc) 1 applic topical TID IRRITATION 12/28/21 [History Last Taken 12/28/21] omeprazole 40 mg capsule,delayed release 40 mg PO BID GERD 12/28/21 [History Last Taken 12/27/21] polyethylene glycol 3350 17 gram oral powder packet 17 g PO DAILY CONSTIPATION 12/28/21 [History Last Taken 12/27/21] sodium chloride 0.9 % (flush) (Normal Saline Flush 0.9 % injection syringe) 10 ml IV QHS VANCOMYCIN 12/28/21 [History Last Taken 12/27/21] furosemide 20 mg tablet (Lasix) 20 mg PO DAILY #30 tabs 12/29/21 [Rx Last Taken Unknown] Allergy/AdvReac Type Severity Reaction Status Date / Time doxycycline Allergy NEEDS Verified 12/29/21 10:19 FOLLOW-UP latex Allergy NEEDS Verified 12/29/21 10:19 FOLLOW-UP Sulfa (Sulfonamide Allergy Anaphylaxis Verified 12/29/21 10:19 Antibiotics) sulfur dioxide Allergy Anaphylaxis Verified 12/29/21 10:19 atorvastatin AdvReac Other Verified 12/29/21 10:19 oxycodone AdvReac Other Verified 12/29/21 10:19 Family History Grandmother Diabetes Mother Heart disease Surgical History H/O right heart catheterization History of cataract surgery History of coronary artery stent placement (02/24/17) History of heart artery stent Tubal ligation status Social History household members: none housing: other details: [facility] Living. Smoking Status: Former smoker how long ago did patient quit smokin alcohol intake: former year quit: 1999 substance use type: does not use caffeine: Yes Type: carbonated beverages and tea ROS ROS ED Constitutional Constitutional ED: Denies chills, fever(s), subjective, sweats or weight loss Eyes Eyes: Denies blurry vision, change in vision or diplopia ENT ENT ED: Denies ear pain, rhinorrhea or sore throat Cardiovascular Cardiovascular: Reports orthopnea; Denies chest pain, palpitations, paroxysmal nocturnal dyspnea or racing heartbeat Respiratory/Chest Respiratory/Chest: Reports dyspnea, dyspnea on exertion and orthopnea; Denies cough or paroxysmal nocturnal dyspnea Gastrointestinal Gastrointestinal: Denies abdominal pain, diarrhea, melena, nausea or vomiting Genitourinary Genitourinary ED: Denies dysuria, hematuria or urinary frequency Musculoskeletal Musculoskeletal: Denies arthralgias, back pain, myalgias or neck pain Integumentary Reports other Details: Periorbital ecchymosis right side only ; Denies abscess, Abrasions or rash Neurologic Neurologic: Denies headache(s), paresthesias or weakness Psychiatric Psychiatric: Denies anxiety or depression Hematologic/Lymphatic Hematologic/Lymphatic: Denies easy bleeding or easy bruising Allergic/Immunologic Allergic/Immunologic ED: Reports other Details: Venous stasis dermatitis noted bilaterally. ; Denies mouth swelling, tongue swelling or urticaria EXAM Physical Exam Const Vital Signs: 12/29/21 10:19 12/29/21 10:25 12/29/21 12:08 Temperature 98.2 F Temperature Source Oral Pulse Rate 83 83 Respiratory Rate 18 23 H Respiratory Effort Normal Non-Labored Respiratory Pattern Normal Tachypnea Blood Pressure 114/52 L Blood Pressure Mean 72 Pulse Ox 100 Oxygen Delivery Method Nasal Cannula Oxygen Flow Rate (L/min) 3 12/29/21 12:00 12/29/21 14:00 Temperature 97.8 F Temperature Source Temporal Pulse Rate 66 66 Respiratory Rate 18 16 Respiratory Effort Respiratory Pattern Blood Pressure 141/78 H 132/78 H Blood Pressure Mean 99 96 Pulse Ox 95 98 Oxygen Delivery Method Nasal Cannula Nasal Cannula Oxygen Flow Rate (L/min) 3 3 Positive well nourished, well developed, obese and unkempt; Negative for contractures General Appearance ED: unkempt, well developed and pallor; Negative for contractures, cyanotic, diaphoretic or NAD Nutritional Appearance: obese HEENT Reports dry mucous membranes HEENT Narrative: Trauma due to fall yesterday. There is no clinical signs of basal skull fracture. There is no septal deviation hematoma noted. There is no evidence of epistaxis. Uvula is midline. No deviation tongue protrusion. Mouth ED: Yes dry mucous membranes Mouth: dry mucous membranes Eyes PERRL and EOMs intact bilaterally General Eye ED: Yes pale conjunctiva; Negative for scleral icterus Neck no lymphadenopathy, supple and no JVD Neck Narrative: Trachea is midline. Chest Wall inspection of chest normal and palpation of chest normal Resp No normal respiratory effort and No clear to auscultation bilaterally Effort and Inspection: Negative for retractions Auscultation: rales bilateral base Cardio regular rate, regular rhythm, S1 normal heart sound, S2 normal heart sound and no murmurs GI normal to inspection, nondistended, normoactive bowel sounds, non-tender, non-distended and no masses; Negative for hepatosplenomegaly Back/Spine no CVA tenderness Extremity Negative for normal to inspection Extremity Narrative: Venous stasis dermatitis with significant lymphedema. Amputation of toes left foot Neuro oriented x3, CN's II-XII intact bilaterally and no sensory deficits noted Neuro Narrative: There is no clonus or Babinski sign noted. Sensorium / Orientation: alert Motor Exam: strength 5/5 throughout Psych Appearance: unkempt Skin No no rashes or lesions noted, No no wounds and No skin turgor normal General Skin Exam: pallor; Negative for jaundice MDM MDM MDM Narrative Medical decision making narrative: Patient having respiratory stress bilateral rales history of congestive heart failure and COPD obtain chest x-ray to assess for CHF versus pneumonia. CBC was obtained assess white count as well as H&H to evaluate for infectious cause and anemia. In light of patient's history of diabetes will obtain basic metabolic panel to assess glucose, CO2 anion gap and electrolytes. Patient was treated with Lasix. Will observe and determine if patient requires admission versus outpatient treatment. Patient did diurese with the Lasix administered. Since she is not on a diuretic will discharge with prescription for diuretic. Lab Data Attestation: I reviewed the patient's lab results. Lab results narrative: Patient CBC is remarkable for anemia with an H&H 8.4 and 26.6. Indices are normal. Differential is unremarkable. Basic metabolic panel reveals elevated sodium which is consistent with her clinically being dehydrated. Glucose is normal. Labs: Laboratory Results - last 24 hr 12/29/21 12/29/21 11:20 11:20 WBC 10.0 RBC 2.89 L Hgb 8.4 L Hct 26.6 L MCV 92.0 MCH 29.1 MCHC 31.6 L RDW Std Deviation 61.9 H RDW Coeff of Magen 18.5 H Plt Count 211 MPV 10.6 Immature Gran % (Auto) 0.400 Neut % (Auto) 75.7 H Lymph % (Auto) 13.1 L [place] % (Auto) 7.1 Eos % (Auto) 3.1 Baso % (Auto) 0.6 Absolute Neuts (auto) 7.5 Absolute Lymphs (auto) 1.30 Nucleated RBC % 0 Sodium 146 H Potassium 4.5 Chloride 115 H Carbon Dioxide 27.0 Anion Gap 4 L BUN 20 H Creatinine 0.88 Estim Creat Clear Calc 59.67 Est GFR (MDRD) Af Amer 83 Est GFR (MDRD) Non-Af 69 BUN/Creatinine Ratio 22.9 H Glucose 80 Calcium 9.4 Radiography Chest X-Ray - ED: 2 View and Read by ED Physician (There is evidence of cardiomegaly and congestive heart failure with cephalization. There is no effusion. Osseous structures are unremarkable. There is independently reviewed and interpreted by me.) Diagnostic Testing: Clinical Impression(s) from Imaging Studies Chest X-Ray 12/29/21 11:16 IMPRESSION: Cardiomegaly. Vascular congestion and CHF. Electronically Signed: Btuch Ling MD at 12:11 EDT , EKG Initial EKG: Attestation: I personally reviewed and interpreted this EKG as follows: Interpretation: Sinus Rhythm (Ventricular is 92. The EKG is normal. PA interval is 160 ms. QS duration 82 ms. QT duration 3 and 56 ms. [place] is normal) Discharge Plan Triage Chief Complaint: General Illness Other Complaint: Confusion ED Provider: Aaron Ayala Dx/Rx/DC Orders Clinical Impression: Acute exacerbation of CHF (congestive heart failure), Diabetes mellitus, Type 2 diabetes mellitus with foot ulcer, Anemia, Chronic obstructive pulmonary disease Instructions: ED Heart Failure, Congestive (CHF) Prescriptions: New furosemide [Lasix] 20 mg tablet 20 mg PO DAILY Qty: 30 0RF No Action aspirin [Adult Aspirin Regimen] 81 mg tablet,delayed release (DR/EC) 81 mg PO DAILY Levemir FlexTouch U-100 Insuln 100 unit/mL (3 mL) insulin pen 35 unit SUBCUT QHS metoprolol succinate 50 mg tablet extended release 24 hr 50 mg PO BID sennosides-docusate sodium [Senna-S] 8.6-50 mg Tablet 1 tab PO BID levothyroxine [Synthroid] 100 mcg tablet 100 mcg PO DAILY trazodone 100 mg tablet 100 mg PO QHS montelukast 10 mg tablet 10 mg PO QHS gabapentin 100 mg capsule 200 mg PO TID vancomycin 1.25 gram recon soln 1.25 g IV Q24H Qty: 10 0RF albuterol sulfate 90 mcg/actuation HFA aerosol inhaler 2 puff INHALATION 4X/DAY PRN PRN (Reason: Shortness Of Breath Or Wheezing) Label Comments: 2 PUFFS BY MOUTH FOUR TIMES A DAY NEEDED acetaminophen [Tylenol] 325 mg Tablet 650 mg PO Q6H PRN PRN (Reason: Pain 1-10 Or Fever >100.7) Qty: 0 0RF Say (with collagen) 7-7-1.5 gram Powder In Packet 1 packet PO BIDCM Qty: 0 0RF mirtazapine 30 mg Tablet 30 mg PO QHS Qty: 0 0RF fluconazole 200 mg Tablet 200 mg PO DAILY omeprazole 40 mg Capsule,Delayed Release(Dr/Ec) 40 mg PO BID sodium chloride 0.9 % (flush) [Normal Saline Flush] Syringe 10 ml IV QHS polyethylene glycol 3350 17 gram powder in packet 17 g PO DAILY ferrous sulfate [FeroSul] 325 mg (65 mg iron) tablet 325 mg PO LUNCH nystatin [Nyamyc] 100,000 unit/gram powder 1 applic topical TID Protocol: *Topical Application Instructions APPLICATION INSTRUCTIONS: apply to groin tid for redness insulin lispro [Humalog KwikPen Insulin] 100 unit/mL insulin pen 10 unit subcut TIDAC Primary Care Provider: Geovanna Mott BICYCLE MECHANIC Referrals: Geovanna Mott BICYCLE MECHANIC, BICYCLE MECHANIC-C [Primary Care Provider] - 3-5 Days Disposition Disposition: Home, Self Care
--- NOTE | 2021-12-29 11:16 | EKG12_ITS ---
Test Reason : Blood Pressure : / mmHG Vent. Rate : 092 BPM Atrial Rate : 092 BPM P-R Int : 168 ms QRS Dur : 082 ms QT Int : 356 ms P-R-T Axes : 061 052 059 degrees QTc Int : 440 ms Normal sinus rhythm Normal ECG Confirmed by HEYDI ROSS, GODWIN ([id number]), editorial clerk JASON PEREIRA ([id number]) on 01/02/2022 1:12:05 PM Referred By: Confirmed By:GODWIN SOLIZ MD
--- NOTE | 2021-12-29 11:16 | RAD_ITS ---
STUDY: X-RAY CHEST REASON FOR EXAM: Female, 66 years old. Tachypnea, bibasilar rales, lymphedema LE TECHNIQUE: AP and lateral views of the chest. COMPARISON: Comparison is made with prior study dated 11/22/2021. FINDINGS: The appearance of gastric congestion and CHF. There is no demonstrated pleural abnormality. There is mild cardiac enlargement. Normal mediastinum and sol. Normal visualized pulmonary arteries. Normal visualized aortic arch and descending thoracic aorta. There are diffuse degenerative changes of the visualized thoracic spine. Normal visualized ribs, clavicles, and shoulders. There is no demonstrated abnormality of the visualized soft tissue structures of the upper abdomen. RAD/Chest PA and Lateral IMPRESSION: Cardiomegaly. Vascular congestion and CHF. Electronically Signed: Butch Ling MD at 12:11 EDT ,
[2021-12-29 11:35] LABS: Absolute Neutrophil Count 7.5 X10^3/uL (2.0-7.7); Basophil# 0.06 X10^3/uL; Basophil% 0.6 % (0-1); Eosinophil# 0.31 X10^3/uL; Eosinophils% 3.1 % (0-5); Hematocrit 26.6 % (37-47); Hemoglobin 8.4 g/dL (12.0-15.0); Lymphocyte % 13.1 % (19-41); Mean Corp Hgb Conc 31.6 g/dL (32-36); Mean Corpuscular Hgb 29.1 pg (27.0-32.0); Mean Platelet Vol. 10.6 fl (6.2-12.0); Monocyte# 0.71 X10^3/uL; Monocyte% 7.1 % (0-10); NRBC Flagged by Analyzer 0 % (0-5); Neutrophil # 7.53 X10^3/uL (2.7-7.7); Neutrophil % 75.7 % (47-70); Platelet Count 211 K/mm3 (150-450); RBC Distribution Width CV 18.5 % (11.6-14.6); RBC Distribution Width SD 61.9 fl (35.1-43.9); Red Blood Count 2.89 M/mm3 (4.2-5.4)
[2021-12-29 11:56] LABS: Anion Gap 4 (5-15); BUN 20 mg/dL (7-18); BUN/Creat Ratio 22.9 RATIO (10-20); Calcium,Total 9.4 mg/dL (8.5-10.1); Chloride 115 mmol/L (98-107); Creatinine, Serum 0.88 mg/dL (0.55-1.02); EST Glomerular Filtration Rate 69 mL/min (>60); Est Glom Filt Rate - Afr Amer 83 mL/min (>60); Estimated Creatinine Clearance 59.67 ml/min; Glucose 80 mg/dL (74-106); Potassium 4.5 mmol/L (3.5-5.1); Sodium Level 146 mmol/L (136-145)
[2021-12-29 12:00] VITALS: BP 141/78; PULSE 66; RESP 18; TEMP 36.6; O2SAT 95
[2021-12-29 12:08] VITALS: PULSE 83; RESP 23
[2021-12-29] MEDS: Ipratropium/Albuterol Sulfate 3 ML AMPUL.NEB INHALATION (12:08)
[2021-12-29 14:00] VITALS: BP 132/78; PULSE 66; RESP 16; O2SAT 98
[2021-12-29] MEDS: Furosemide 40 MG/4 ML Vial IV (14:10)
--- NOTE | 2021-12-29 16:35 | NURSING ---
SPOKE WITH JASON [facility] ETA OF 1HOUR TO GET PT BACK TO [facility]
[2021-12-29 16:45] VITALS: BP 140/82; PULSE 104; RESP 18; O2SAT 94
--- NOTE | 2021-12-29 17:02 | ED.RN ---
THIS RN CALLED REPORT BACK TO FRAN [facility]ARE[facility] AT [facility]. INFORMED OF D/C INSTRUCTIONS AND HOME GOING PRESCRIPTIONS. PT AWAITING RIDE.
== END 2021-12-29 15:25 | disposition home or self-care (01) ==
PROVIDERS: Emergency Provider Emergency Medicine; PCP Nurse Practitioner Adult Health; Visit Provider Emergency Medicine
DX: I11.0 Hypertensive heart disease with heart failure (principal); E11.51 Type 2 diabetes mellitus with diabetic peripheral angiopathy without gangrene; J44.9 Chronic obstructive pulmonary disease, unspecified; I50.33 Acute on chronic diastolic (congestive) heart failure; I27.21 Secondary pulmonary arterial hypertension; E11.42 Type 2 diabetes mellitus with diabetic polyneuropathy; J96.11 Chronic respiratory failure with hypoxia; Z79.4 Long term (current) use of insulin; R41.82 Altered mental status, unspecified; D64.9 Anemia, unspecified; E78.5 Hyperlipidemia, unspecified; I25.10 Atherosclerotic heart disease of native coronary artery without angina pectoris; Z87.891 Personal history of nicotine dependence; Z99.81 Dependence on supplemental oxygen; E66.9 Obesity, unspecified; G47.33 Obstructive sleep apnea (adult) (pediatric); Z79.82 Long term (current) use of aspirin
CPT/HCPCS: 36592; 71046; 80048; 85025; 93005; 94640; 96374; 99285; A4216; J1940

== ENCOUNTER 2022-01-03 09:53 | Emergency (ER) | payer MEDICARE, MEDICAID, SELFPAY ==
[2022-01-03 09:53] VITALS: BP 154/89; PULSE 101; RESP 20; TEMP 35.5; O2SAT 94; BMI 40.8
--- NOTE | 2022-01-03 10:24 | EDS_ITS ---
HPI History of Present Illness Chief Complaint: Wound Narrative Narrative: Patient recently had osteomyelitis, she has a foot wound on the left, she has an amputation which was recently done of her left great toe. She pulled her PICC out today. She is supposed to be on vancomycin at her ECF. She has no other complaints other than the fact that she tells me she does not want to go back to the ECF. [facility] Medical History Acute cervical myofascial strain Acute on chronic respiratory failure with hypoxemia Acute respiratory failure with hypoxia Amputated toe of left foot Anemia Asthma Atherosclerotic heart disease of [place] coronary artery without angina pectoris Atrial fibrillation Atrial fibrillation with rapid ventricular response CAD (coronary artery disease) CHF (congestive heart failure) Chronic heart failure with preserved ejection fraction (HFpEF) Chronic heel ulcer Chronic respiratory failure with hypoxia, on home oxygen therapy Chronic ulcer of great toe of left foot Closed head injury Congestive heart failure (CHF) COPD (chronic obstructive pulmonary disease) Current use of insulin Decubitus ulcer of dorsum of foot, stage 2 Decubitus ulcer of left heel, stage 2 Decubitus ulcer of left heel, stage 3 Decubitus ulcer, heel, left, unstageable Depression Diabetes mellitus with diabetic polyneuropathy Diabetes type 2, controlled Diabetic foot ulcers Diverticulitis Essential hypertension Former smoker History of amputation of left great toe History of non-ST elevation myocardial infarction (NSTEMI) (02/24/17) Hyperlipidemia Hypothyroid Myocardial infarct Non-rheumatic tricuspid valve insufficiency Nondisplaced fracture of distal phalanx of right great toe, initial encounter for closed fracture Nonrheumatic mitral (valve) insufficiency Obesity Obstructive sleep apnea On home O2 Renal insufficiency Secondary pulmonary arterial hypertension Type 2 diabetes mellitus Vitamin D deficiency Home Medications aspirin 81 mg tablet,delayed release (Adult Aspirin Regimen) 81 mg PO DAILY heart 05/17/21 [History Last Taken 12/28/21] insulin detemir U-100 100 unit/mL (3 mL) subcutaneous pen (Levemir FlexTouch U- 100 Insulin) 35 unit subcut QHS blood sugar 09/02/21 [History Last Taken 12/27/21] metoprolol succinate 50 mg tablet,extended release 24 hr 50 mg PO BID BLOOD PRES SURE 11/08/21 [History Last Taken 12/27/21] gabapentin 100 mg capsule 200 mg PO TID NERVE PAIN 12/13/21 [History Last Taken 12/28/21] levothyroxine 100 mcg tablet (Synthroid) 100 mcg PO DAILY THYROID 12/13/21 [History Last Taken 12/28/21] montelukast 10 mg tablet 10 mg PO QHS ALLERGIES 12/13/21 [History Last Taken 12/27/21] sennosides 8.6 mg-docusate sodium 50 mg tablet (Senna-S) 1 tab PO BID STOOL SOFTNER 12/13/21 [History Last Taken 12/27/21] trazodone 100 mg tablet 100 mg PO QHS SLEEP 12/13/21 [History Last Taken 12/27/21] albuterol sulfate 90 mcg/actuation aerosol inhaler 2 puff inhalation 4X/DAY PRN PRN Shortness Of Breath Or Wheezing 12/19/21 [History Last Taken Unknown] vancomycin 1.25 gram intravenous solution 1.25 g IV Q24H #10 ea 12/19/21 [Rx Last Taken 12/27/21] acetaminophen 325 mg tablet (Tylenol) 650 mg PO Q6H PRN PRN Pain 1-10 Or Fever >100.7 #0 tabs 12/21/21 [Rx Last Taken 12/27/21] arginine 7 gram-glutam 7 gram-CaHMB 1.5 tdmd-naxar-ne-min oral pwd pkt (Say (with collagen)) 1 packet PO BIDCM #0 ea 12/21/21 [Rx Last Taken 12/27/21] mirtazapine 30 mg tablet 30 mg PO QHS #0 tabs 12/21/21 [Rx Last Taken 12/27/21] ferrous sulfate 325 mg (65 mg iron) tablet (FeroSul) 325 mg PO LUNCH SUPPLEMENT 12/28/21 [History Last Taken 12/27/21] fluconazole 200 mg tablet 200 mg PO DAILY 12/28/21 [History Last Taken Unknown] insulin lispro 100 unit/mL subcutaneous pen (Humalog KwikPen (U-100) Insulin) 10 unit subcut TIDAC DIABETES 12/28/21 [History Last Taken 12/27/21] nystatin 100,000 unit/gram topical powder (Nyamyc) 1 applic topical TID IRRITATION 12/28/21 [History Last Taken 12/28/21] omeprazole 40 mg capsule,delayed release 40 mg PO BID GERD 12/28/21 [History Last Taken 12/27/21] polyethylene glycol 3350 17 gram oral powder packet 17 g PO DAILY CONSTIPATION 12/28/21 [History Last Taken 12/27/21] sodium chloride 0.9 % (flush) (Normal Saline Flush 0.9 % injection syringe) 10 ml IV QHS VANCOMYCIN 12/28/21 [History Last Taken 12/27/21] furosemide 20 mg tablet (Lasix) 20 mg PO DAILY #30 tabs 12/29/21 [Rx Last Taken Unknown] Allergy/AdvReac Type Severity Reaction Status Date / Time doxycycline Allergy NEEDS Verified 12/29/21 10:19 FOLLOW-UP latex Allergy NEEDS Verified 12/29/21 10:19 FOLLOW-UP Sulfa (Sulfonamide Allergy Anaphylaxis Verified 12/29/21 10:19 Antibiotics) sulfur dioxide Allergy Anaphylaxis Verified 12/29/21 10:19 atorvastatin AdvReac Other Verified 12/29/21 10:19 oxycodone AdvReac Other Verified 12/29/21 10:19 Family History Grandmother Diabetes Mother Heart disease Surgical History H/O right heart catheterization History of cataract surgery History of coronary artery stent placement (02/24/17) History of heart artery stent Tubal ligation status Social History household members: none housing: other details: [facility]. Smoking Status: Former smoker how long ago did patient quit smokin alcohol intake: former year quit: 1999 substance use type: does not use caffeine: Yes Type: carbonated beverages and tea ROS ROS ED ROS Narrative Past medical history: It is quite extensive I reviewed in [email or web address] and at the bedside. Medications: Reviewed in [facility] ([email or web address] Social history: Currently F resident Review of systems: All systems negative except as indicated General: No fever Eyes: No visual changes ENT: Recent fall which was investigated, she has multiple facial contusions Neck: No neck pain Cardiovascular: No chest pain Respiratory: Chronic dyspnea on oxygen no change Gastrointestinal: No abdominal pain, nausea vomiting or diarrhea Genitourinary: No dysuria Musculoskeletal: Left lower extremity wound Skin: Chronic bilateral lower extremity lymphedema Neurological: No memory loss, confusion or any focal weakness Hematologic: No easy bleeding or easy bruising EXAM Physical Exam Narrative Exam Narrative: Physical exam General: Patient appears chronically ill. She does not appear uncomfortable at this time. Head: Normocephalic, Atraumatic Eyes: Conjunctiva not pale ENT: Moist mucous membranes, no signs of dehydration. Multiple periorbital contusions and facial contusions which seem old. Neck: Supple, Nontender, No lymphadenopathy Cardiovascular: Regular rate, Regular rhythm Respiratory: Coarse bilateral breath sounds but she has no respiratory distress. She is on her home oxygen. Abdomen: Soft, Nontender, Nondistended Back: Nontender, Normal Inspection. Negative for: CVA tenderness Extremities: Bilateral lower extremity edema, left lower extremity shows the amputation site of the great toe is clean dry and intact. Slight erythema both extremities but no calor. Skin: Lower extremity as above otherwise no other rash. Neurological: Alert, Normal Strength, Normal Sensation Psychological: Flat affect. Const Vital Signs: 01/03/22 09:53 01/03/22 10:25 Temperature 95.9 F L Temperature Source Temporal Pulse Rate 101 H Respiratory Rate 20 H 27 H Blood Pressure 154/89 H Blood Pressure Mean 110 Pulse Ox 94 98 Oxygen Delivery Method Nasal Cannula [facility] Lab Data Labs: Laboratory Results - last 24 hr 01/03/22 10:58 Vancomycin Trough 9.8 Treatment and Re-Evaluation Narrative: I am being told that a PICC line will be placed from the emergency department in the next 1 to 2 hours. Patient otherwise appears well does not need to be admitted. I will discharge with outpatient follow-up. Discharge Plan Triage Chief Complaint: Wound ED Provider: Froy Abdullahi Dx/Rx/DC Orders Clinical Impression: S/P PICC central line placement, Diabetic foot infection, Osteomyelitis Instructions: Osteomyelitis Dc Prescriptions: No Action aspirin [Adult Aspirin Regimen] 81 mg tablet,delayed release (DR/EC) 81 mg PO DAILY Levemir FlexTouch U-100 Insuln 100 unit/mL (3 mL) insulin pen 35 unit SUBCUT QHS metoprolol succinate 50 mg tablet extended release 24 hr 50 mg PO BID sennosides-docusate sodium [Senna-S] 8.6-50 mg Tablet 1 tab PO BID levothyroxine [Synthroid] 100 mcg tablet 100 mcg PO DAILY trazodone 100 mg tablet 100 mg PO QHS montelukast 10 mg tablet 10 mg PO QHS gabapentin 100 mg capsule 200 mg PO TID vancomycin 1.25 gram recon soln 1.25 g IV Q24H Qty: 10 0RF albuterol sulfate 90 mcg/actuation HFA aerosol inhaler 2 puff INHALATION 4X/DAY PRN PRN (Reason: Shortness Of Breath Or Wheezing) Label Comments: 2 PUFFS BY MOUTH FOUR TIMES A DAY NEEDED acetaminophen [Tylenol] 325 mg Tablet 650 mg PO Q6H PRN PRN (Reason: Pain 1-10 Or Fever >100.7) Qty: 0 0RF Say (with collagen) 7-7-1.5 gram Powder In Packet 1 packet PO BIDCM Qty: 0 0RF mirtazapine 30 mg Tablet 30 mg PO QHS Qty: 0 0RF fluconazole 200 mg Tablet 200 mg PO DAILY omeprazole 40 mg Capsule,Delayed Release(Dr/Ec) 40 mg PO BID sodium chloride 0.9 % (flush) [Normal Saline Flush] Syringe 10 ml IV QHS polyethylene glycol 3350 17 gram powder in packet 17 g PO DAILY ferrous sulfate [FeroSul] 325 mg (65 mg iron) tablet 325 mg PO LUNCH nystatin [Nyamyc] 100,000 unit/gram powder 1 applic topical TID Protocol: *Topical Application Instructions APPLICATION INSTRUCTIONS: apply to groin tid for redness insulin lispro [Humalog KwikPen Insulin] 100 unit/mL insulin pen 10 unit subcut TIDAC furosemide [Lasix] 20 mg tablet 20 mg PO DAILY Qty: 30 0RF Primary Care Provider: Geovanna Mott GEOTHERMAL POWERPLANT MECHANIC HELPER Referrals: Geovanna Mott GEOTHERMAL POWERPLANT MECHANIC HELPER, GEOTHERMAL POWERPLANT MECHANIC HELPER-C [Primary Care Provider] - Disposition Disposition: Half-Way Facility
[2022-01-03 10:25] VITALS: RESP 27; O2SAT 98
[2022-01-03 11:33] LABS: Vancomycin, Trough Level 9.8 ug/mL (5.0-15.0)
[2022-01-03 16:00] VITALS: BP 164/84; PULSE 90; RESP 20; O2SAT 94
--- NOTE | 2022-01-03 16:37 | NURSING ---
Pt requesting to have a NRB in place d/t her anxiety. SPO2 was 94% on 3-4L prior to application of NRB. Pt instructed on proper breathing techniques.
--- NOTE | 2022-01-03 17:04 | NURSING ---
Attempted to call [facility] to give report, no answer at this time. Pt en route to [facility]. R arm PICC site wrapped w/ LAURA d/t minimal blood drainage from bottom of dressing. Gauze underneath dressing remains visibly dry.
== END 2022-01-03 17:01 | disposition skilled nursing facility (03) ==
PROVIDERS: Emergency Provider Emergency Medicine; PCP Nurse Practitioner Adult Health; Visit Provider Emergency Medicine
DX: T82.524A Displacement of infusion catheter, initial encounter (principal); Z89.422 Acquired absence of other left toe(s); M86.9 Osteomyelitis, unspecified; J44.9 Chronic obstructive pulmonary disease, unspecified; I11.0 Hypertensive heart disease with heart failure; I50.32 Chronic diastolic (congestive) heart failure; E11.69 Type 2 diabetes mellitus with other specified complication; E11.42 Type 2 diabetes mellitus with diabetic polyneuropathy; Z79.4 Long term (current) use of insulin; Y84.8 Other medical procedures as the cause of abnormal reaction of the patient, or of later complication, without mention of misadventure at the time of the procedure; I25.10 Atherosclerotic heart disease of native coronary artery without angina pectoris; E78.5 Hyperlipidemia, unspecified; Z79.82 Long term (current) use of aspirin; Z79.890 Hormone replacement therapy; Z79.899 Other long term (current) drug therapy; Z87.891 Personal history of nicotine dependence
CPT/HCPCS: 36415; 36569; 80202; 99284

== ENCOUNTER 2022-01-10 01:06 | Emergency (ER) | payer MEDICARE, MEDICAID, SELFPAY ==
[2022-01-10 01:07] VITALS: BP 137/85; PULSE 79; RESP 20; TEMP 35.9; O2SAT 100
[2022-01-10 01:08] VITALS: BP 137/85; PULSE 79; RESP 20; TEMP 35.9; O2SAT 100; BMI 41.3
--- NOTE | 2022-01-10 01:31 | EX.ED.DYSGE1 ---
HPI History of Present Illness Chief Complaint: Abn Labs Detail of Chief Complaint: Sent in for an elevated potassium on labs drawn yesterday. Informant: patient Onset/Context/Timing Onset: Yesterday Current Severity: Mild Maximum Severity: Mild Narrative Narrative: 66-year-old female extensive past medical history of CAD, A. fib, CHF, [place], COPD, diabetes and renal insufficiency. Also has a history of anemia. Currently a resident at a local nursing facility. Had labs drawn Sunday and the potassium returned elevated at 6.1 she was sent in for further evaluation. She did have a recent fall was seen here for head injury and facial trauma. And had a CAT scan that was unremarkable. Prior similar symptoms: No Recent Illness/Hospitalization: Yes [facility] Medical History Acute cervical myofascial strain Acute on chronic respiratory failure with hypoxemia Acute respiratory failure with hypoxia Amputated toe of left foot Anemia Asthma Atherosclerotic heart disease of [place] coronary artery without angina pectoris Atrial fibrillation Atrial fibrillation with rapid ventricular response CAD (coronary artery disease) CHF (congestive heart failure) Chronic heart failure with preserved ejection fraction (HFpEF) Chronic heel ulcer Chronic respiratory failure with hypoxia, on home oxygen therapy Chronic ulcer of great toe of left foot Closed head injury Congestive heart failure (CHF) COPD (chronic obstructive pulmonary disease) Current use of insulin Decubitus ulcer of dorsum of foot, stage 2 Decubitus ulcer of left heel, stage 2 Decubitus ulcer of left heel, stage 3 Decubitus ulcer, heel, left, unstageable Depression Diabetes mellitus with diabetic polyneuropathy Diabetes type 2, controlled Diabetic foot ulcers Diverticulitis Essential hypertension Former smoker History of amputation of left great toe History of non-ST elevation myocardial infarction (NSTEMI) (02/24/17) Hyperlipidemia Hypothyroid Myocardial infarct Non-rheumatic tricuspid valve insufficiency Nondisplaced fracture of distal phalanx of right great toe, initial encounter for closed fracture Nonrheumatic mitral (valve) insufficiency Obesity Obstructive sleep apnea On home O2 Renal insufficiency Secondary pulmonary arterial hypertension Type 2 diabetes mellitus Vitamin D deficiency Home Medications aspirin 81 mg tablet,delayed release (Adult Aspirin Regimen) 81 mg PO DAILY heart 05/17/21 [History Last Taken 12/28/21] insulin detemir U-100 100 unit/mL (3 mL) subcutaneous pen (Levemir FlexTouch U-100 Insulin) 35 unit subcut QHS blood sugar 09/02/21 [History Last Taken 12/27/21] metoprolol succinate 50 mg tablet,extended release 24 hr 50 mg PO BID BLOOD PRESSURE 11/08/21 [History Last Taken 12/27/21] gabapentin 100 mg capsule 200 mg PO TID NERVE PAIN 12/13/21 [History Last Taken 12/28/21] levothyroxine 100 mcg tablet (Synthroid) 100 mcg PO DAILY THYROID 12/13/21 [History Last Taken 12/28/21] montelukast 10 mg tablet 10 mg PO QHS ALLERGIES 12/13/21 [History Last Taken 12/27/21] sennosides 8.6 mg-docusate sodium 50 mg tablet (Senna-S) 1 tab PO BID STOOL SOFTNER 12/13/21 [History Last Taken 12/27/21] trazodone 100 mg tablet 100 mg PO QHS SLEEP 12/13/21 [History Last Taken 12/27/21] albuterol sulfate 90 mcg/actuation aerosol inhaler 2 puff inhalation 4X/DAY PRN PRN Shortness Of Breath Or Wheezing 12/19/21 [History Last Taken Unknown] vancomycin 1.25 gram intravenous solution 1.25 g IV Q24H #10 ea 12/19/21 [Rx Last Taken 12/27/21] acetaminophen 325 mg tablet (Tylenol) 650 mg PO Q6H PRN PRN Pain 1-10 Or Fever >100.7 #0 tabs 12/21/21 [Rx Last Taken 12/27/21] arginine 7 gram-glutam 7 gram-CaHMB 1.5 uzfp-yhoab-rl-min oral pwd pkt (Say (with collagen)) 1 packet PO BIDCM #0 ea 12/21/21 [Rx Last Taken 12/27/21] mirtazapine 30 mg tablet 30 mg PO QHS #0 tabs 12/21/21 [Rx Last Taken 12/27/21] ferrous sulfate 325 mg (65 mg iron) tablet (FeroSul) 325 mg PO LUNCH SUPPLEMENT 12/28/21 [History Last Taken 12/27/21] fluconazole 200 mg tablet 200 mg PO DAILY 12/28/21 [History Last Taken Unknown] insulin lispro 100 unit/mL subcutaneous pen (Humalog KwikPen (U-100) Insulin) 10 unit subcut TIDAC DIABETES 12/28/21 [History Last Taken 12/27/21] nystatin 100,000 unit/gram topical powder (Nyamyc) 1 applic topical TID IRRITATION 12/28/21 [History Last Taken 12/28/21] omeprazole 40 mg capsule,delayed release 40 mg PO BID GERD 12/28/21 [History Last Taken 12/27/21] polyethylene glycol 3350 17 gram oral powder packet 17 g PO DAILY CONSTIPATION 12/28/21 [History Last Taken 12/27/21] sodium chloride 0.9 % (flush) (Normal Saline Flush 0.9 % injection syringe) 10 ml IV QHS VANCOMYCIN 12/28/21 [History Last Taken 12/27/21] furosemide 20 mg tablet (Lasix) 20 mg PO DAILY #30 tabs 12/29/21 [Rx Last Taken Unknown] Allergy/AdvReac Type Severity Reaction Status Date / Time doxycycline Allergy NEEDS Verified 12/29/21 10:19 FOLLOW-UP latex Allergy NEEDS Verified 12/29/21 10:19 FOLLOW-UP Sulfa (Sulfonamide Allergy Anaphylaxis Verified 12/29/21 10:19 Antibiotics) sulfur dioxide Allergy Anaphylaxis Verified 12/29/21 10:19 atorvastatin AdvReac Other Verified 12/29/21 10:19 oxycodone AdvReac Other Verified 12/29/21 10:19 Family History Grandmother Diabetes Mother Heart disease Surgical History H/O right heart catheterization History of cataract surgery History of coronary artery stent placement (02/24/17) History of heart artery stent Tubal ligation status Social History household members: none housing: other details: [facility]. Smoking Status: Former smoker how long ago did patient quit smokin alcohol intake: former year quit: 1999 substance use type: does not use caffeine: Yes Type: carbonated beverages and tea ROS ROS ED ROS Narrative Patient denies. Review of Systems ROS Unobtainable: Denies due to encephalopathy Constitutional Constitutional ED: Denies chills or fever(s) Eyes Eyes: Denies blurry vision ENT ENT ED: Denies ear pain Cardiovascular Cardiovascular: Denies chest pain Respiratory/Chest Respiratory/Chest: Denies cough or dyspnea Gastrointestinal Gastrointestinal: Denies abdominal pain Genitourinary Genitourinary ED: Denies dysuria or hematuria Musculoskeletal Musculoskeletal: Denies arthralgias Integumentary Denies abscess Neurologic Neurologic: Denies headache(s) Psychiatric Psychiatric: Denies anxiety Endocrine Endocrinology: Denies cold intolerance Hematologic/Lymphatic Hematologic/Lymphatic: Reports none Allergic/Immunologic Allergic/Immunologic ED: Denies mouth swelling or tongue swelling EXAM Physical Exam Narrative Exam Narrative: 66-year-old female vital signs are stable afebrile. Pulse ox 9% on 2 L no hypoxia. H EENT exam pupils round reactive light extra motions are intact. Pupils are about 2 to 3 mm bilaterally. She does have bruising to the right side of her face and swelling of her right eyelid from a fall a week or so ago. Neck nontender. Trachea midline. Lungs clear to auscultation. Heart regular rhythm no murmur. Abdomen soft nontender. Moving all 4 extremities. She has chronic edema in both lower extremities and feet. No gross deformities. Normal registration scheduling specialist strength. Normal dorsi plantar flexion. Neurologically. She is awake. She answers questions. She follows commands. Const Vital Signs: 01/10/22 01:08 01/10/22 01:07 01/10/22 01:10 Temperature 96.6 F L 96.6 F L Temperature Source Temporal Temporal Pulse Rate 79 79 Respiratory Rate 20 H 20 H Respiratory Pattern Normal Blood Pressure 137/85 H 137/85 H Blood Pressure Mean 102 102 Pulse Ox 100 100 Oxygen Delivery Method Nasal Cannula Nasal Cannula Oxygen Flow Rate (L/min) 2 2 Positive well nourished, well developed and obese; Negative for cachectic, contractures or unkempt General Appearance ED: well developed and NAD; Negative for unkempt, cachectic, contractures, cyanotic or diaphoretic Nutritional Appearance: obese; Negative for cachectic HEENT Reports moist mucous membranes trauma Eyes PERRL and EOMs intact bilaterally General Eye ED: Negative for pale conjunctiva or scleral icterus Neck no lymphadenopathy, supple and no JVD General: Negative for tenderness Chest Wall inspection of chest normal and palpation of chest normal Chest: Negative for other Resp normal respiratory effort and clear to auscultation bilaterally Effort and Inspection: Negative for retractions Auscultation: Negative for rales, rhonchi or wheezes Cardio regular rate, regular rhythm, S1 normal heart sound, S2 normal heart sound and no murmurs GI normal to inspection, nondistended, normoactive bowel sounds, non-tender, non-distended and no masses Inspection: Negative for abdominal distention Auscultation: normoactive bowel sounds Palpation: soft; Negative for tender or guarding Back/Spine no CVA tenderness General Back: Negative for CVA tenderness Cervical Spine: Negative for cervical spine tenderness Thoracic Spine / Upper Back: Negative for thoracic spinal tenderness Lumbar Spine / Lower Back: Negative for lumbar spinal tenderness Extremity Negative for normal to inspection Extremity Narrative: Bilateral lower peripheral edema. Equal symmetrical. Nontender. Neuro Sensorium / Orientation: alert Motor Exam: strength 5/5 throughout Psych mental status grossly normal Appearance: Negative for unkempt Attitude: No agitated Mood & Affect: Negative for depressed, anxious or tearful Skin no rashes or lesions noted and no wounds Skin Narrative: Venous stasis both lower extremities. Peripheral edema bilaterally. Lesions: No lesion noted Trauma: Negative for abrasion Wounds: Negative for wounds noted MDM MDM MDM Narrative Medical decision making narrative: 66-year-old female extensive past medical history sent in from a longterm because labs that were drawn on Sunday showed hyperkalemia with a potassium of 6.1. She will have labs drawn. Repeat exam at 2:16 AM she is doing well. She will be discharged back to the extended care facility. I suspect that was a falsely elevated potassium is currently at 5.0. Lab Data Attestation: I reviewed the patient's lab results. Lab results narrative: CBC shows a white count 7.6. H&H is 7 and 24 she has a history of a chronic anemia. Her electrolytes show a gap of 2. BUN of 48 creatinine 1.16 consistent with mild dehydration. Her potassium here is upper limits of normal at 5.0. Previously at the extended care facility was 6.1. Glucose is 184. Labs: Laboratory Results - last 24 hr 01/10/22 01/10/22 01:30 01:30 WBC 7.6 RBC 2.60 L Hgb 7.0 L Hct 24.6 L MCV 94.6 MCH 26.9 L MCHC 28.5 L RDW Std Deviation 61.1 H RDW Coeff of Magen 17.7 H Plt Count 152 MPV 10.1 Immature Gran % (Auto) 0.400 Neut % (Auto) 77.1 H Lymph % (Auto) 10.5 L Bradley % (Auto) 8.5 Eos % (Auto) 3.0 Baso % (Auto) 0.5 Absolute Neuts (auto) 5.8 Absolute Lymphs (auto) 0.79 L Nucleated RBC % 0 Sodium 144 Potassium 5.0 Chloride 112 H Carbon Dioxide 30.0 Anion Gap 2 L BUN 48 H Creatinine 1.16 H Estim Creat Clear Calc 45.26 Est GFR (MDRD) Af Amer 60 Est GFR (MDRD) Non-Af 50 L BUN/Creatinine Ratio 41.4 H Glucose 184 H Calcium 9.5 Discharge Plan Triage Chief Complaint: Abn Labs ED Provider: Narinder Alston Dx/Rx/DC Orders Clinical Impression: Acute dehydration, History of diabetes mellitus, History of atrial fibrillation Prescriptions: No Action aspirin [Adult Aspirin Regimen] 81 mg tablet,delayed release (DR/EC) 81 mg PO DAILY Levemir FlexTouch U-100 Insuln 100 unit/mL (3 mL) insulin pen 35 unit SUBCUT QHS metoprolol succinate 50 mg tablet extended release 24 hr 50 mg PO BID sennosides-docusate sodium [Senna-S] 8.6-50 mg Tablet 1 tab PO BID levothyroxine [Synthroid] 100 mcg tablet 100 mcg PO DAILY trazodone 100 mg tablet 100 mg PO QHS montelukast 10 mg tablet 10 mg PO QHS gabapentin 100 mg capsule 200 mg PO TID vancomycin 1.25 gram recon soln 1.25 g IV Q24H Qty: 10 0RF albuterol sulfate 90 mcg/actuation HFA aerosol inhaler 2 puff INHALATION 4X/DAY PRN PRN (Reason: Shortness Of Breath Or Wheezing) Label Comments: 2 PUFFS BY MOUTH FOUR TIMES A DAY NEEDED acetaminophen [Tylenol] 325 mg Tablet 650 mg PO Q6H PRN PRN (Reason: Pain 1-10 Or Fever >100.7) Qty: 0 0RF Say (with collagen) 7-7-1.5 gram Powder In Packet 1 packet PO BIDCM Qty: 0 0RF mirtazapine 30 mg Tablet 30 mg PO QHS Qty: 0 0RF fluconazole 200 mg Tablet 200 mg PO DAILY omeprazole 40 mg Capsule,Delayed Release(Dr/Ec) 40 mg PO BID sodium chloride 0.9 % (flush) [Normal Saline Flush] Syringe 10 ml IV QHS polyethylene glycol 3350 17 gram powder in packet 17 g PO DAILY ferrous sulfate [FeroSul] 325 mg (65 mg iron) tablet 325 mg PO LUNCH nystatin [Nyamyc] 100,000 unit/gram powder 1 applic topical TID Protocol: *Topical Application Instructions APPLICATION INSTRUCTIONS: apply to groin tid for redness insulin lispro [Humalog KwikPen Insulin] 100 unit/mL insulin pen 10 unit subcut TIDAC furosemide [Lasix] 20 mg tablet 20 mg PO DAILY Qty: 30 0RF Primary Care Provider: Geovanna Mott HEALTH ECONOMIST Referrals: Geovanna Mott HEALTH ECONOMIST, HEALTH ECONOMIST-C [Primary Care Provider] - 3-5 Days Activity Restrictions/Additional Instructions: Her potassium tonight was 5.0. She is mildly dehydrated increase her fluid intake per her primary care provider. Disposition Disposition: Home, Self Care
[2022-01-10 01:34] LABS: Absolute Lymphocyte Count 0.79 X10^3/uL (0.83-4.51); Absolute Neutrophil Count 5.8 X10^3/uL (2.0-7.7); Basophil# 0.04 X10^3/uL; Basophil% 0.5 % (0-1); Eosinophil# 0.23 X10^3/uL; Hematocrit 24.6 % (37-47); Lymphocyte # 0.79 X10^3/ul (0.83-4.51); Lymphocyte % 10.5 % (19-41); Mean Corp Hgb Conc 28.5 g/dL (32-36); Mean Corpuscular Hgb 26.9 pg (27.0-32.0); Mean Corpuscular Volume 94.6 fL (81-99); Mean Platelet Vol. 10.1 fl (6.2-12.0); Monocyte# 0.64 X10^3/uL; Monocyte% 8.5 % (0-10); NRBC Flagged by Analyzer 0 % (0-5); Neutrophil # 5.82 X10^3/uL (2.7-7.7); Neutrophil % 77.1 % (47-70); Platelet Count 152 K/mm3 (150-450); RBC Distribution Width CV 17.7 % (11.6-14.6); RBC Distribution Width SD 61.1 fl (35.1-43.9); White Blood Count 7.6 K/mm3 (4.4-11.0)
[2022-01-10 01:48] LABS: Anion Gap 2 (5-15); BUN 48 mg/dL (7-18); BUN/Creat Ratio 41.4 RATIO (10-20); Calcium,Total 9.5 mg/dL (8.5-10.1); Chloride 112 mmol/L (98-107); Creatinine, Serum 1.16 mg/dL (0.55-1.02); EST Glomerular Filtration Rate 50 mL/min (>60); Est Glom Filt Rate - Afr Amer 60 mL/min (>60); Estimated Creatinine Clearance 45.26 ml/min; Glucose 184 mg/dL (74-106); Sodium Level 144 mmol/L (136-145)
[2022-01-10 03:08] VITALS: O2SAT 98
[2022-01-10 03:09] VITALS: O2SAT 98
== END 2022-01-10 03:11 | disposition home or self-care (01) ==
PROVIDERS: Emergency Provider Emergency Medicine; PCP Nurse Practitioner Adult Health; Visit Provider Emergency Medicine
DX: E86.0 Dehydration (principal); J44.9 Chronic obstructive pulmonary disease, unspecified; I11.0 Hypertensive heart disease with heart failure; I50.32 Chronic diastolic (congestive) heart failure; I48.91 Unspecified atrial fibrillation; E11.9 Type 2 diabetes mellitus without complications; Z79.4 Long term (current) use of insulin; I25.10 Atherosclerotic heart disease of native coronary artery without angina pectoris; E78.5 Hyperlipidemia, unspecified; E03.9 Hypothyroidism, unspecified; Z79.82 Long term (current) use of aspirin; Z79.890 Hormone replacement therapy; Z79.899 Other long term (current) drug therapy; Z87.891 Personal history of nicotine dependence
CPT/HCPCS: 36592; 80048; 85025; 99284; A4216

== ENCOUNTER 2022-01-12 16:41 | Emergency (ER) | payer MEDICARE, MEDICAID, SELFPAY ==
[2022-01-12] VITALS (7 sets, daily range): BP systolic 138–179; BP diastolic 66–76; PULSE 100–106; RESP 18–22; TEMP 36.6–37.1; O2SAT 95–100; BMI 42.5
--- NOTE | 2022-01-12 16:53 | RAD_ITS ---
INDICATION: Shortness of Breath EXAMINATION/TECHNIQUE: X-RAY - XR Chest 1 View COMPARISON: None. FINDINGS: There are patchy interstitial and airspace opacities. Tortuous and calcified thoracic aorta. The heart is mildly enlarged. No pleural effusion or pneumothorax. Degenerative changes of the thoracic spine. RAD/Chest 1 View (Portable) IMPRESSION: Bilateral patchy interstitial and airspace opacities may represent edema and/or infection. Electronically Signed: Ronni Weinstein MD at 18:06 [facility] ,
--- NOTE | 2022-01-12 16:54 | EDS_ITS ---
HPI History of Present Illness Chief Complaint: Shortness of Breath Narrative Narrative: 66-year-old female presents from [facility] with reported shortness of breath. She has past medical history of COPD and wears 3 to 4 L of oxygen at all times. She states that she has been at the facility for the last few weeks. She also has past medical history of congestive heart failure. She was admitted to the facility after being hospitalized for foot infections. Reported by EMS, her oxygen level was only on half a liter upon arrival and they could not increase it. She has been stable throughout her transport here. She complains of shortness of breath over the last 3 to 5 days with her history of CHF and COPD. [facility] Medical History Acute cervical myofascial strain Acute on chronic respiratory failure with hypoxemia Acute respiratory failure with hypoxia Amputated toe of left foot Anemia Asthma Atherosclerotic heart disease of [place] coronary artery without angina pectoris Atrial fibrillation Atrial fibrillation with rapid ventricular response CAD (coronary artery disease) CHF (congestive heart failure) Chronic heart failure with preserved ejection fraction (HFpEF) Chronic heel ulcer Chronic respiratory failure with hypoxia, on home oxygen therapy Chronic ulcer of great toe of left foot Closed head injury Congestive heart failure (CHF) COPD (chronic obstructive pulmonary disease) Current use of insulin Decubitus ulcer of dorsum of foot, stage 2 Decubitus ulcer of left heel, stage 2 Decubitus ulcer of left heel, stage 3 Decubitus ulcer, heel, left, unstageable Depression Diabetes mellitus with diabetic polyneuropathy Diabetes type 2, controlled Diabetic foot ulcers Diverticulitis Essential hypertension Former smoker History of amputation of left great toe History of non-ST elevation myocardial infarction (NSTEMI) (02/24/17) Hyperlipidemia Hypothyroid Myocardial infarct Non-rheumatic tricuspid valve insufficiency Nondisplaced fracture of distal phalanx of right great toe, initial encounter for closed fracture Nonrheumatic mitral (valve) insufficiency Obesity Obstructive sleep apnea On home O2 Renal insufficiency Secondary pulmonary arterial hypertension Type 2 diabetes mellitus Vitamin D deficiency Home Medications aspirin 81 mg tablet,delayed release (Adult Aspirin Regimen) 81 mg PO DAILY heart 05/17/21 [History Last Taken 12/28/21] insulin detemir U-100 100 unit/mL (3 mL) subcutaneous pen (Levemir FlexTouch U- 100 Insulin) 35 unit subcut QHS blood sugar 09/02/21 [History Last Taken 12/27/21] metoprolol succinate 50 mg tablet,extended release 24 hr 50 mg PO DAILY BLOOD PRESSURE 11/08/21 [History Last Taken 12/27/21] gabapentin 100 mg capsule 200 mg PO TID NERVE PAIN 12/13/21 [History Last Taken 12/28/21] levothyroxine 100 mcg tablet (Synthroid) 100 mcg PO DAILY THYROID 12/13/21 [History Last Taken 12/28/21] montelukast 10 mg tablet 10 mg PO QHS ALLERGIES 12/13/21 [History Last Taken 12/27/21] sennosides 8.6 mg-docusate sodium 50 mg tablet (Senna-S) 1 tab PO BID STOOL SOFTNER 12/13/21 [History Last Taken 12/27/21] trazodone 100 mg tablet 100 mg PO QHS SLEEP 12/13/21 [History Last Taken 12/27/21] albuterol sulfate 90 mcg/actuation aerosol inhaler 2 puff inhalation 4X/DAY PRN PRN Shortness Of Breath Or Wheezing 12/19/21 [History Last Taken Unknown] acetaminophen 325 mg tablet (Tylenol) 650 mg PO Q6H PRN PRN Pain 1-10 Or Fever >100.7 #0 tabs 12/21/21 [Rx Last Taken 12/27/21] arginine 7 gram-glutam 7 gram-CaHMB 1.5 [id number] oral pwd pkt (Say (with collagen)) 1 packet PO BIDCM #0 ea 12/21/21 [Rx Last Taken 12/27/21] mirtazapine 30 mg tablet 30 mg PO QHS #0 tabs 12/21/21 [Rx Last Taken 12/27/21] ferrous sulfate 325 mg (65 mg iron) tablet (FeroSul) 325 mg PO LUNCH SUPPLEMENT 12/28/21 [History Last Taken 12/27/21] fluconazole 200 mg tablet 400 mg PO DAILY 12/28/21 [History Last Taken Unknown] insulin lispro 100 unit/mL subcutaneous pen (Humalog KwikPen (U-100) Insulin) 10 unit subcut TIDAC DIABETES 12/28/21 [History Last Taken 12/27/21] nystatin 100,000 unit/gram topical powder (Nyamyc) 1 applic topical TID IRRITATI ON 12/28/21 [History Last Taken 12/28/21] omeprazole 40 mg capsule,delayed release 40 mg PO BID GERD 12/28/21 [History Last Taken 12/27/21] polyethylene glycol 3350 17 gram oral powder packet 17 g PO DAILY CONSTIPATION 12/28/21 [History Last Taken 12/27/21] sodium chloride 0.9 % (flush) (Normal Saline Flush 0.9 % injection syringe) 10 ml IV QHS VANCOMYCIN 12/28/21 [History Last Taken 12/27/21] furosemide 20 mg tablet (Lasix) 20 mg PO DAILY #30 tabs 12/29/21 [Rx Last Taken Unknown] cefdinir 300 mg capsule 300 mg PO BID 5 days #10 caps 01/12/22 [Rx Last Taken Unknown] furosemide 40 mg tablet (Lasix) 40 mg PO DAILY 3 days #3 tabs 01/12/22 [Rx Last Taken Unknown] lorazepam 1 mg tablet 1 mg PO QHS 01/12/22 [History Last Taken Unknown] paroxetine HCl 20 mg tablet (Paxil) 20 mg PO DAILY 01/12/22 [History Last Taken Unknown] Allergy/AdvReac Type Severity Reaction Status Date / Time doxycycline Allergy NEEDS Verified 01/12/22 16:49 FOLLOW-UP latex Allergy NEEDS Verified 01/12/22 16:49 FOLLOW-UP Sulfa (Sulfonamide Allergy Anaphylaxis Verified 01/12/22 16:49 Antibiotics) sulfur dioxide Allergy Anaphylaxis Verified 01/12/22 16:49 atorvastatin AdvReac Other Verified 01/12/22 16:49 oxycodone AdvReac Other Verified 01/12/22 16:49 Family History Grandmother Diabetes Mother Heart disease Surgical History H/O right heart catheterization History of cataract surgery History of coronary artery stent placement (02/24/17) History of heart artery stent Tubal ligation status Social History household members: none housing: other details: [facility]. Smoking Status: Former smoker how long ago did patient quit smokin alcohol intake: former year quit: 1999 substance use type: does not use caffeine: Yes Type: carbonated beverages and tea ROS ROS ED ROS Narrative Constitutional: No fever, no chills. HEENT: No sore throat. No neck pain. No loss of vision. No rhinorrhea. Cardiovascular: No chest pain. No palpitations. Chronic bilateral pedal edema. Respiratory: No cough, positive shortness of breath. Abdominal: No abdominal pain. No nausea. No vomiting. Genitourinary: No dysuria. No hematuria. Musculoskeletal: No myalgias. No arthralgias. Neurologic: No headaches. No dizziness. No lightheadedness. Skin: No rash. No change in color. Psychiatric: No depression. No anxiety. EXAM Physical Exam Narrative Exam Narrative: Afebrile. Vital signs noted. HEENT: Normocephalic. Atraumatic. PERRL, EOMI. Neck soft and supple. No point tenderness or step off. Cardiovascular: Regular rate and rhythm. No murmurs, rubs, or gallops appreciated. Respiratory: No tachypnea. Lungs clear to auscultation bilaterally. No distress. No accessory muscle use. Gastrointestinal: Abdomen soft, nontender, with normoactive bowel sounds. No rebound or guarding. Neurological: Awake. Alert. Nonfocal, nonlateralizing. Skin: No rash. Normal color. No pallor. Musculoskeletal: Bilateral symmetric pedal edema. Full range of motion extremities. Const Vital Signs: 01/12/22 16:42 01/12/22 16:47 01/12/22 16:47 Temperature 97.9 F 97.9 F Temperature Source Temporal Temporal Pulse Rate 105 H 105 H Respiratory Rate 22 H 22 H Respiratory Effort Normal Non-Labored Respiratory Pattern Tachypnea Blood Pressure 179/76 H 179/76 H Blood Pressure Mean 110 110 Pulse Ox 96 96 Oxygen Delivery Method Nasal Cannula Nasal Cannula Nasal Cannula Oxygen Flow Rate (L/min) 3 3 3 01/12/22 17:47 01/12/22 18:00 01/12/22 19:00 Temperature 98.8 F 98.8 F 98.6 F Temperature Source Oral Oral Oral Pulse Rate 102 H 102 H 106 H Respiratory Rate 18 18 20 H Respiratory Effort Respiratory Pattern Blood Pressure 165/73 H 165/73 H 138/66 H Blood Pressure Mean 103 103 90 Pulse Ox 100 100 100 Oxygen Delivery Method Nasal Cannula Nasal Cannula Nasal Cannula Oxygen Flow Rate (L/min) 3 3 01/12/22 18:42 Temperature Temperature Source Pulse Rate 102 H Respiratory Rate Respiratory Effort Respiratory Pattern Blood Pressure Blood Pressure Mean Pulse Ox Oxygen Delivery Method Oxygen Flow Rate (L/min) MDM MDM MDM Narrative Medical decision making narrative: Patient's pulse ox is 95 to 97% on her 3 L of nasal cannula oxygen. I will work her up for CHF/COPD exacerbation with pneumonia. CBC shows WBC count of 6.6, hemoglobin stable at 7.6, at her baseline. Platelet count slightly low at 147. Chloride slightly elevated at 112. Potassium of 5.3 with a BUN of 36, normal creatinine of 1.0. Glucose is elevated at 279 but she has a low anion gap of 4. High-sensitivity troponin is 27, BNP 255.2. She does have a history of CHF. Chest x-ray interpreted by myself shows bilateral infiltrates consistent with pneumonia versus CHF. RN reports that [facility] states that her pulse ox was 88% and she was more lethargic today. I think this can be explained by her oxygen only being set at half a liter. Additionally, they thought she was more lethargic and was becoming septic. She has normal blood pressure here and although she is slightly tachycardic, her lactic acid is normal at 1.0. I di scussed the patient with Dr. Izaiah Beatty. It was felt that any pneumonia could be treated at the [facility] facility. He would like her placed on cefdinir 300 mg twice a day for the next 5 days. Additionally, he would like her to have Lasix 40 mg once a day for the next 3 days. I wrote her prescriptions for this. She will be discharged back to the [facility] facility. Disposition is discharged in stable condition. Lab Data Attestation: I reviewed the patient's lab results. Labs: Laboratory Results - last 24 hr 01/12/22 01/12/22 01/12/22 17:05 17:05 17:05 WBC 6.6 RBC 2.73 L Hgb 7.6 L Hct 26.1 L MCV 95.6 MCH 27.8 MCHC 29.1 L RDW Std Deviation 61.8 H RDW Coeff of Magen 17.7 H Plt Count 147 L MPV 11.5 Immature Gran % (Auto) 0.500 Neut % (Auto) 84.5 H Lymph % (Auto) 7.4 L [place] % (Auto) 5.6 Eos % (Auto) 1.7 Baso % (Auto) 0.3 Absolute Neuts (auto) 5.6 Absolute Lymphs (auto) 0.49 L Nucleated RBC % 0 Differential Comment SCANNED Sodium 143 Potassium 5.3 H Chloride 112 H Carbon Dioxide 27.0 Anion Gap 4 L BUN 36 H Creatinine 1.00 Estim Creat Clear Calc 52.51 Est GFR (MDRD) Af Amer 72 Est GFR (MDRD) Non-Af 59 L BUN/Creatinine Ratio 36.1 H Glucose 279 H Lactic Acid Calcium 9.5 Troponin I High Sens 27 B-Natriuretic Peptide 255.2 H 01/12/22 18:02 WBC RBC Hgb Hct MCV MCH MCHC RDW Std Deviation RDW Coeff of Magen Plt Count MPV Immature Gran % (Auto) Neut % (Auto) Lymph % (Auto) [place] % (Auto) Eos % (Auto) Baso % (Auto) Absolute Neuts (auto) Absolute Lymphs (auto) Nucleated RBC % Differential Comment Sodium Potassium Chloride Carbon Dioxide Anion Gap BUN Creatinine Estim Creat Clear Calc Est GFR (MDRD) Af Amer Est GFR (MDRD) Non-Af BUN/Creatinine Ratio Glucose Lactic Acid 1.0 Calcium Troponin I High Sens B-Natriuretic Peptide Radiography Diagnostic Testing: Clinical Impression(s) from Imaging Studies Chest X-Ray 01/12/22 16:53 IMPRESSION: Bilateral patchy interstitial and airspace opacities may represent edema and/or infection. Electronically Signed: Ronni Weinstein MD at 18:06 EST , Discharge Plan Triage Chief Complaint: Shortness of Breath ED Provider: Benjy Sierra Dx/Rx/DC Orders Clinical Impression: COPD (chronic obstructive pulmonary disease), Pneumonia, CHF (congestive heart failure) Instructions: ED Heart Failure, Congestive (CHF), ED Pneumonia (Adult) Prescriptions: New furosemide [Lasix] 40 mg tablet 40 mg PO DAILY 3 Days Qty: 3 0RF cefdinir 300 mg capsule 300 mg PO BID 5 Days Qty: 10 0RF No Action aspirin [Adult Aspirin Regimen] 81 mg tablet,delayed release (DR/EC) 81 mg PO DAILY Levemir FlexTouch U-100 Insuln 100 unit/mL (3 mL) insulin pen 35 unit SUBCUT QHS metoprolol succinate 50 mg tablet extended release 24 hr 50 mg PO DAILY sennosides-docusate sodium [Senna-S] 8.6-50 mg Tablet 1 tab PO BID levothyroxine [Synthroid] 100 mcg tablet 100 mcg PO DAILY trazodone 100 mg tablet 100 mg PO QHS montelukast 10 mg tablet 10 mg PO QHS gabapentin 100 mg capsule 200 mg PO TID albuterol sulfate 90 mcg/actuation HFA aerosol inhaler 2 puff INHALATION 4X/DAY PRN PRN (Reason: Shortness Of Breath Or Wheezing) Label Comments: 2 PUFFS BY MOUTH FOUR TIMES A DAY NEEDED acetaminophen [Tylenol] 325 mg Tablet 650 mg PO Q6H PRN PRN (Reason: Pain 1-10 Or Fever >100.7) Qty: 0 0RF Say (with collagen) 7-7-1.5 gram Powder In Packet 1 packet PO BIDCM Qty: 0 0RF mirtazapine 30 mg Tablet 30 mg PO QHS Qty: 0 0RF fluconazole 200 mg Tablet 400 mg PO DAILY omeprazole 40 mg Capsule,Delayed Release(Dr/Ec) 40 mg PO BID sodium chloride 0.9 % (flush) [Normal Saline Flush] Syringe 10 ml IV QHS polyethylene glycol 3350 17 gram powder in packet 17 g PO DAILY ferrous sulfate [FeroSul] 325 mg (65 mg iron) tablet 325 mg PO LUNCH nystatin [Nyamyc] 100,000 unit/gram powder 1 applic topical TID Protocol: *Topical Application Instructions APPLICATION INSTRUCTIONS: apply to groin tid for redness insulin lispro [Humalog KwikPen Insulin] 100 unit/mL insulin pen 10 unit subcut TIDAC furosemide [Lasix] 20 mg tablet 20 mg PO DAILY Qty: 30 0RF paroxetine HCl [Paxil] 20 mg Tablet 20 mg PO DAILY lorazepam 1 mg tablet 1 mg PO QHS Primary Care Provider: Geovanna Mott [employer] Referrals: Froy Gonzales MD [Med Staff - Active Staff] - 1-2 Days if not improving Geovanna Mott [employer], [employer] [Primary Care Provider] - Disposition Disposition: [facility] Discharge Location: [facility]
[2022-01-12 17:14] LABS: Absolute Lymphocyte Count 0.49 X10^3/uL (0.83-4.51); Absolute Neutrophil Count 5.6 X10^3/uL (2.0-7.7); Basophil# 0.02 X10^3/uL; Basophil% 0.3 % (0-1); Eosinophil# 0.11 X10^3/uL; Eosinophils% 1.7 % (0-5); Hematocrit 26.1 % (37-47); Hemoglobin 7.6 g/dL (12.0-15.0); Lymphocyte # 0.49 X10^3/ul (0.83-4.51); Lymphocyte % 7.4 % (19-41); Mean Corp Hgb Conc 29.1 g/dL (32-36); Mean Corpuscular Hgb 27.8 pg (27.0-32.0); Mean Corpuscular Volume 95.6 fL (81-99); Mean Platelet Vol. 11.5 fl (6.2-12.0); Monocyte# 0.37 X10^3/uL; Monocyte% 5.6 % (0-10); NRBC Flagged by Analyzer 0 % (0-5); Neutrophil # 5.58 X10^3/uL (2.7-7.7); Neutrophil % 84.5 % (47-70); POSITIVE DIFFERENTIAL YES; Platelet Count 147 K/mm3 (150-450); RBC Distribution Width CV 17.7 % (11.6-14.6); RBC Distribution Width SD 61.8 fl (35.1-43.9); Red Blood Count 2.73 M/mm3 (4.2-5.4); White Blood Count 6.6 K/mm3 (4.4-11.0)
[2022-01-12 17:32] LABS: Anion Gap 4 (5-15); BUN 36 mg/dL (7-18); BUN/Creat Ratio 36.1 RATIO (10-20); Calcium,Total 9.5 mg/dL (8.5-10.1); Chloride 112 mmol/L (98-107); Differential Comment SCANNED; EST Glomerular Filtration Rate 59 mL/min (>60); Est Glom Filt Rate - Afr Amer 72 mL/min (>60); Estimated Creatinine Clearance 52.51 ml/min; Glucose 279 mg/dL (74-106); Potassium 5.3 mmol/L (3.5-5.1); Sodium Level 143 mmol/L (136-145); Troponin-I HS 27 pg/mL (3.0-54.0)
[2022-01-12 17:33] LABS: Differential Indicated SCAN CRITERIA MET
[2022-01-12 17:45] LABS: BNP,B-Type NATRIURETIC PEPTIDE 255.2 pg/mL (0-100)
[2022-01-12] MEDS: Furosemide 40 MG Tablet PO (20:02)
[2022-01-12] MEDS: Cefdinir 300 MG Capsule PO (20:03)
== END 2022-01-12 21:15 | disposition skilled nursing facility (03) ==
PROVIDERS: Emergency Provider Emergency Medicine; PCP Nurse Practitioner Adult Health; Visit Provider Emergency Medicine
DX: J44.0 Chronic obstructive pulmonary disease with (acute) lower respiratory infection (principal); J44.1 Chronic obstructive pulmonary disease with (acute) exacerbation; I50.9 Heart failure, unspecified; I11.0 Hypertensive heart disease with heart failure; E11.42 Type 2 diabetes mellitus with diabetic polyneuropathy; E11.65 Type 2 diabetes mellitus with hyperglycemia; E78.5 Hyperlipidemia, unspecified; I25.10 Atherosclerotic heart disease of native coronary artery without angina pectoris; Z87.891 Personal history of nicotine dependence; Z99.81 Dependence on supplemental oxygen; Z95.5 Presence of coronary angioplasty implant and graft; Z79.899 Other long term (current) drug therapy
CPT/HCPCS: 71045; 80048; 83605; 83880; 84484; 85025; 93005; 99285; A4216

== ENCOUNTER 2022-01-24 12:31 | Emergency (ER) | payer MEDICARE, MEDICAID, SELFPAY ==
[2022-01-24 12:32] VITALS: BP 129/80; PULSE 72; RESP 18; TEMP 36.1; O2SAT 99
[2022-01-24 12:33] VITALS: BP 157/89; PULSE 77; RESP 18; TEMP 35.5; O2SAT 94; BMI 41.6
[2022-01-24 13:32] VITALS: PULSE 69; RESP 16
[2022-01-24] MEDS: Ipratropium/Albuterol Sulfate 3 ML AMPUL.NEB INHALATION (13:32)
[2022-01-24 13:36] LABS: Bedside Glucose 68 mg/dL (74-106)
[2022-01-24 14:00] LABS: Bedside Glucose 51 mg/dL (74-106)
[2022-01-24 14:13] LABS: Absolute Lymphocyte Count 0.57 X10^3/uL (0.83-4.51); Absolute Neutrophil Count 8.3 X10^3/uL (2.0-7.7); Basophil# 0.03 X10^3/uL; Basophil% 0.3 % (0-1); Eosinophil# 0.06 X10^3/uL; Eosinophils% 0.6 % (0-5); Hematocrit 28.2 % (37-47); Hemoglobin 7.9 g/dL (12.0-15.0); Lymphocyte # 0.57 X10^3/ul (0.83-4.51); Mean Corpuscular Hgb 27.2 pg (27.0-32.0); Mean Corpuscular Volume 97.2 fL (81-99); Mean Platelet Vol. 11.9 fl (6.2-12.0); Monocyte# 0.55 X10^3/uL; Monocyte% 5.7 % (0-10); NRBC Flagged by Analyzer 0 % (0-5); Neutrophil # 8.31 X10^3/uL (2.7-7.7); Neutrophil % 86.9 % (47-70); POSITIVE DIFFERENTIAL YES; Platelet Count 146 K/mm3 (150-450); RBC Distribution Width CV 17.7 % (11.6-14.6); White Blood Count 9.6 K/mm3 (4.4-11.0)
--- NOTE | 2022-01-24 14:17 | EDS_ITS ---
HPI History of Present Illness Chief Complaint: Hypoglycemia Informant: patient Narrative Narrative: Patient comes in with low blood sugar episodes. Patient states she is on insulin. She is on Levemir and lispro. She did not eat breakfast or lunch. I asked if she was not hungry she states she was hungry but she just could not get them to bring her food. She is not able to go get herself. She was consistent in telling both myself this as well as nurses prior to my arrival. She is awake alert and appropriate. She is hungry and would like to eat. [facility] Medical History Acute cervical myofascial strain Acute on chronic respiratory failure with hypoxemia Acute respiratory failure with hypoxia Amputated toe of left foot Anemia Asthma Atherosclerotic heart disease of [place] coronary artery without angina pectoris Atrial fibrillation Atrial fibrillation with rapid ventricular response CAD (coronary artery disease) CHF (congestive heart failure) Chronic heart failure with preserved ejection fraction (HFpEF) Chronic heel ulcer Chronic respiratory failure with hypoxia, on home oxygen therapy Chronic ulcer of great toe of left foot Closed head injury Congestive heart failure (CHF) COPD (chronic obstructive pulmonary disease) Current use of insulin Decubitus ulcer of dorsum of foot, stage 2 Decubitus ulcer of left heel, stage 2 Decubitus ulcer of left heel, stage 3 Decubitus ulcer, heel, left, unstageable Depression Diabetes mellitus with diabetic polyneuropathy Diabetes type 2, controlled Diabetic foot ulcers Diverticulitis Essential hypertension Former smoker History of amputation of left great toe History of non-ST elevation myocardial infarction (NSTEMI) (02/24/17) Hyperlipidemia Hypothyroid Myocardial infarct Non-rheumatic tricuspid valve insufficiency Nondisplaced fracture of distal phalanx of right great toe, initial encounter for closed fracture Nonrheumatic mitral (valve) insufficiency Obesity Obstructive sleep apnea On home O2 Renal insufficiency Secondary pulmonary arterial hypertension Type 2 diabetes mellitus Vitamin D deficiency Home Medications aspirin 81 mg tablet,delayed release (Adult Aspirin Regimen) 81 mg PO DAILY heart 05/17/21 [History Last Taken 12/28/21] insulin detemir U-100 100 unit/mL (3 mL) subcutaneous pen (Levemir FlexTouch U- 100 Insulin) 35 unit subcut QHS blood sugar 09/02/21 [History Last Taken 12/27/21] metoprolol succinate 50 mg tablet,extended release 24 hr 50 mg PO DAILY BLOOD PRESSURE 11/08/21 [History Last Taken 12/27/21] gabapentin 100 mg capsule 200 mg PO TID NERVE PAIN 12/13/21 [History Last Taken 12/28/21] levothyroxine 100 mcg tablet (Synthroid) 100 mcg PO DAILY THYROID 12/13/21 [History Last Taken 12/28/21] montelukast 10 mg tablet 10 mg PO QHS ALLERGIES 12/13/21 [History Last Taken 12/27/21] sennosides 8.6 mg-docusate sodium 50 mg tablet (Senna-S) 1 tab PO BID STOOL SOFTNER 12/13/21 [History Last Taken 12/27/21] trazodone 100 mg tablet 100 mg PO QHS SLEEP 12/13/21 [History Last Taken 12/27/21] albuterol sulfate 90 mcg/actuation aerosol inhaler 2 puff inhalation 4X/DAY PRN PRN Shortness Of Breath Or Wheezing 12/19/21 [History Last Taken Unknown] acetaminophen 325 mg tablet (Tylenol) 650 mg PO Q6H PRN PRN Pain 1-10 Or Fever >100.7 #0 tabs 12/21/21 [Rx Last Taken 12/27/21] arginine 7 gram-glutam 7 gram-CaHMB 1.5 [id number] oral pwd pkt (Say (with collagen)) 1 packet PO BIDCM #0 ea 12/21/21 [Rx Last Taken 12/27/21] mirtazapine 30 mg tablet 30 mg PO QHS #0 tabs 12/21/21 [Rx Last Taken 12/27/21] ferrous sulfate 325 mg (65 mg iron) tablet (FeroSul) 325 mg PO LUNCH SUPPLEMENT 12/28/21 [History Last Taken 12/27/21] fluconazole 200 mg tablet 400 mg PO DAILY 12/28/21 [History Last Taken Unknown] insulin lispro 100 unit/mL subcutaneous pen (Humalog KwikPen (U-100) Insulin) 10 unit subcut TIDAC DIABETES 12/28/21 [History Last Taken 12/27/21] nystatin 100,000 unit/gram topical powder (Nyamyc) 1 applic topical TID IRRITATION 12/28/21 [History Last Taken 12/28/21] omeprazole 40 mg capsule,delayed release 40 mg PO BID GERD 12/28/21 [History Last Taken 12/27/21] polyethylene glycol 3350 17 gram oral powder packet 17 g PO DAILY CONSTIPATION 12/28/21 [History Last Taken 12/27/21] sodium chloride 0.9 % (flush) (Normal Saline Flush 0.9 % injection syringe) 10 ml IV QHS VANCOMYCIN 12/28/21 [History Last Taken 12/27/21] furosemide 20 mg tablet (Lasix) 20 mg PO DAILY #30 tabs 12/29/21 [Rx Last Taken Unknown] cefdinir 300 mg capsule 300 mg PO BID 5 days #10 caps 01/12/22 [Rx Last Taken Unknown] furosemide 40 mg tablet (Lasix) 40 mg PO DAILY 3 days #3 tabs 01/12/22 [Rx Last Taken Unknown] lorazepam 1 mg tablet 1 mg PO QHS 01/12/22 [History Last Taken Unknown] paroxetine HCl 20 mg tablet (Paxil) 20 mg PO DAILY 01/12/22 [History Last Taken Unknown] Allergy/AdvReac Type Severity Reaction Status Date / Time doxycycline Allergy NEEDS Verified 01/24/22 12:33 FOLLOW-UP latex Allergy NEEDS Verified 01/24/22 12:33 FOLLOW-UP Sulfa (Sulfonamide Allergy Anaphylaxis Verified 01/24/22 12:33 Antibiotics) sulfur dioxide Allergy Anaphylaxis Verified 01/24/22 12:33 atorvastatin AdvReac Other Verified 01/24/22 12:33 oxycodone AdvReac Other Verified 01/24/22 12:33 Family History Grandmother Diabetes Mother Heart disease Surgical History H/O right heart catheterization History of cataract surgery History of coronary artery stent placement (02/24/17) History of heart artery stent Tubal ligation status Social History household members: none housing: other details: [facility]. Smoking Status: Former smoker how long ago did patient quit smokin alcohol intake: former year quit: 1999 substance use type: does not use caffeine: Yes Type: carbonated beverages and tea ROS ROS ED Constitutional Constitutional ED: Denies chills or fever(s) Eyes Eyes: Denies change in vision ENT ENT ED: Denies rhinorrhea or sore throat Cardiovascular Cardiovascular: Denies chest pain or palpitations Respiratory/Chest Respiratory/Chest: Reports cough and other Details: Patient states she has had recent pneumonia. She also has COPD. But she does not feel acutely short of breath. I note that she is wheezing and asked if she could use a breathing treatment and she did agree to that. ; Denies dyspnea Gastrointestinal Gastrointestinal: Denies abdominal pain, nausea or vomiting Genitourinary Genitourinary ED: Denies hematuria Musculoskeletal Musculoskeletal: Denies arthralgias Neurologic Neurologic: Denies headache(s) Hematologic/Lymphatic Hematologic/Lymphatic: Denies easy bleeding or easy bruising Allergic/Immunologic Allergic/Immunologic ED: Denies urticaria EXAM Physical Exam Const Vital Signs: 01/24/22 12:33 01/24/22 12:56 01/24/22 12:32 Temperature 95.9 F L 97.0 F L Temperature Source Oral Temporal Pulse Rate 77 72 Respiratory Rate 18 18 Respiratory Effort Normal Non-Labored Respiratory Pattern Normal Blood Pressure 157/89 H 129/80 H Blood Pressure Mean 111 96 Pulse Ox 94 99 Oxygen Delivery Method Room Air Nasal Cannula Oxygen Flow Rate (L/min) 4 01/24/22 13:32 01/24/22 14:33 Temperature Temperature Source Pulse Rate 69 Respiratory Rate 16 Respiratory Effort Respiratory Pattern Normal Blood Pressure 136/79 H Blood Pressure Mean 98 Pulse Ox Oxygen Delivery Method Oxygen Flow Rate (L/min) Positive well nourished and well developed General Appearance ED: well developed HEENT Reports moist mucous membranes HEENT Narrative: Patient does have some abrasions and bruising on the right side of her face. She states she fell about a month ago but that bruising and redness comes from scratching.It is improving. Eyes EOMs intact bilaterally Neck no JVD Resp normal respiratory effort and clear to auscultation bilaterally Cardio regular rate, regular rhythm and no murmurs GI normal to inspection, nondistended, normoactive bowel sounds Back/Spine no CVA tenderness Extremity Extremity Narrative: Chronic dressings and cushions on both heels. No notable acute edema erythema or tenderness. Neuro oriented x3 Neuro Narrative: Patient is awake alert to person place time and situation. She knows the year the location she was off on the month thinking it had already turned January but knew that it was close to the transition. She knew who the president was. She knew that the hansen of gas was significantly elevated. No indication of confusion. Psych mental status grossly normal MDM MDM MDM Narrative Medical decision making narrative: Patient did eat green beans, potatoes, part of of her meat loaf and sandwich. T here were also some crackers snacks and drinks. Patient then fell asleep here. She was able to be woken up but I was concerned about low sugar again. She has a level 142. I then went back. She will wake up and tell me about what she ate. She was upset that the meatloaf was dry. We then contacted the correction and found out her last trazodone was last night. She is also on lorazepam but she has been taking it just intermittently and has not had it for couple days. The correction staff said that she pretty much falls asleep all day long. This is her normal. As long as her blood sugar stays up, it sounds like she is at her baseline and can go back to the [facility] facility. She has anemia but this is chronic on her labs.Electrolytes showed mild elevation of creatinine but I think this can be followed as an outpatient. She is not hypotensive. She was also given a breathing treatment and her lungs are clear now. Lab Data Attestation: I reviewed the patient's lab results. Labs: Laboratory Results - last 24 hr 01/24/22 01/24/22 01/24/22 13:14 13:41 14:00 WBC 9.6 RBC 2.90 L Hgb 7.9 L Hct 28.2 L MCV 97.2 MCH 27.2 MCHC 28.0 L RDW Std Deviation 63.0 H RDW Coeff of Magen 17.7 H Plt Count 146 L MPV 11.9 Immature Gran % (Auto) 0.500 Neut % (Auto) 86.9 H Lymph % (Auto) 6.0 L Ward % (Auto) 5.7 Eos % (Auto) 0.6 Baso % (Auto) 0.3 Absolute Neuts (auto) 8.3 H Absolute Lymphs (auto) 0.57 L Nucleated RBC % 0 Differential Comment COMMENT Sodium Potassium Chloride Carbon Dioxide Anion Gap BUN Creatinine Estim Creat Clear Calc Est GFR (MDRD) Af Amer Est GFR (MDRD) Non-Af BUN/Creatinine Ratio Glucose Calcium POC Glucose 68 L 51 L 01/24/22 01/24/22 01/24/22 14:00 14:41 15:03 WBC RBC Hgb Hct MCV MCH MCHC RDW Std Deviation RDW Coeff of Magen Plt Count MPV Immature Gran % (Auto) Neut % (Auto) Lymph % (Auto) Ward % (Auto) Eos % (Auto) Baso % (Auto) Absolute Neuts (auto) Absolute Lymphs (auto) Nucleated RBC % Differential Comment Sodium 143 Potassium 4.8 Chloride 109 H Carbon Dioxide 32.0 Anion Gap 2 L BUN 58 H Creatinine 1.46 H Estim Creat Clear Calc 35.96 Est GFR (MDRD) Af Amer 46 L Est GFR (MDRD) Non-Af 38 L BUN/Creatinine Ratio 39.7 H Glucose 52 L Calcium 9.3 POC Glucose 71 L 157 H Discharge Plan Triage Chief Complaint: Hypoglycemia ED Provider: Soren Lucas Dx/Rx/DC Orders Clinical Impression: Hypoglycemia, COPD (chronic obstructive pulmonary disease) Instructions: ED Diabetic Insulin Reaction Prescriptions: No Action aspirin [Adult Aspirin Regimen] 81 mg tablet,delayed release (DR/EC) 81 mg PO DAILY Levemir FlexTouch U-100 Insuln 100 unit/mL (3 mL) insulin pen 35 unit SUBCUT QHS metoprolol succinate 50 mg tablet extended release 24 hr 50 mg PO DAILY sennosides-docusate sodium [Senna-S] 8.6-50 mg Tablet 1 tab PO BID levothyroxine [Synthroid] 100 mcg tablet 100 mcg PO DAILY trazodone 100 mg tablet 100 mg PO QHS montelukast 10 mg tablet 10 mg PO QHS gabapentin 100 mg capsule 200 mg PO TID albuterol sulfate 90 mcg/actuation HFA aerosol inhaler 2 puff INHALATION 4X/DAY PRN PRN (Reason: Shortness Of Breath Or Wheezing) Label Comments: 2 PUFFS BY MOUTH FOUR TIMES A DAY NEEDED acetaminophen [Tylenol] 325 mg Tablet 650 mg PO Q6H PRN PRN (Reason: Pain 1-10 Or Fever >100.7) Qty: 0 0RF Say (with collagen) 7-7-1.5 gram Powder In Packet 1 packet PO BIDCM Qty: 0 0RF mirtazapine 30 mg Tablet 30 mg PO QHS Qty: 0 0RF fluconazole 200 mg Tablet 400 mg PO DAILY omeprazole 40 mg Capsule,Delayed Release(Dr/Ec) 40 mg PO BID sodium chloride 0.9 % (flush) [Normal Saline Flush] Syringe 10 ml IV QHS polyethylene glycol 3350 17 gram powder in packet 17 g PO DAILY ferrous sulfate [FeroSul] 325 mg (65 mg iron) tablet 325 mg PO LUNCH nystatin [Nyamyc] 100,000 unit/gram powder 1 applic topical TID Protocol: *Topical Application Instructions APPLICATION INSTRUCTIONS: apply to groin tid for redness insulin lispro [Humalog KwikPen Insulin] 100 unit/mL insulin pen 10 unit subcut TIDAC furosemide [Lasix] 20 mg tablet 20 mg PO DAILY Qty: 30 0RF paroxetine HCl [Paxil] 20 mg Tablet 20 mg PO DAILY lorazepam 1 mg tablet 1 mg PO QHS furosemide [Lasix] 40 mg tablet 40 mg PO DAILY 3 Days Qty: 3 0RF cefdinir 300 mg capsule 300 mg PO BID 5 Days Qty: 10 0RF Primary Care Provider: Geovanna Mott MEDICAL LAB TECHNOLOGIST Referrals: Geovanna Mott MEDICAL LAB TECHNOLOGIST, MEDICAL LAB TECHNOLOGIST-C [Primary Care Provider] - 2 Days Activity Restrictions/Additional Instructions: Patient will need either adjustment of insulin, or assistance and mandated eat ing of her meals. If she is resting or sleeping, she needs to be awoken to make sure she gets her meals in. Disposition Disposition: Home, Self Care
[2022-01-24 14:19] LABS: Differential Indicated SCAN CRITERIA MET
[2022-01-24 14:25] LABS: Anion Gap 2 (5-15); BUN 58 mg/dL (7-18); BUN/Creat Ratio 39.7 RATIO (10-20); Calcium,Total 9.3 mg/dL (8.5-10.1); Chloride 109 mmol/L (98-107); Creatinine, Serum 1.46 mg/dL (0.55-1.02); EST Glomerular Filtration Rate 38 mL/min (>60); Est Glom Filt Rate - Afr Amer 46 mL/min (>60); Estimated Creatinine Clearance 35.96 ml/min; Glucose 52 mg/dL (74-106); Potassium 4.8 mmol/L (3.5-5.1); Sodium Level 143 mmol/L (136-145)
[2022-01-24 14:33] VITALS: BP 136/79
[2022-01-24] MEDS: Dextrose 50%-Water 25 GM/50 ML DISP.SYRIN IV (14:45)
[2022-01-24 15:00] LABS: Bedside Glucose 71 mg/dL (74-106)
[2022-01-24 15:26] LABS: Bedside Glucose 157 mg/dL (74-106)
--- NOTE | 2022-01-24 15:50 | ED.RN ---
VITOR ROGERS STEWART STATES THAT THE PT RECEIVED 50MG TRAZODONE AT 2030 ON 01/23/22. LAST DOES OF 1MG ATIVAN GIVEN ON THE .
[2022-01-24 16:00] VITALS: BP 111/78; PULSE 74; RESP 16; TEMP 36.8; O2SAT 95
[2022-01-24 16:01] LABS: Bedside Glucose 146 mg/dL (74-106)
[2022-01-24 17:05] VITALS: BP 93/69; PULSE 77; RESP 20; TEMP 36.6; O2SAT 94
--- NOTE | 2022-01-24 17:08 | ED.RN ---
REPORT CALLED TO YANN, SPOKE WITH
--- NOTE | 2022-01-24 17:08 | NURSING ---
CALLED [facility], ETA IS 2 HRS
[2022-01-24 17:21] LABS: Bedside Glucose 136 mg/dL (74-106)
--- NOTE | 2022-01-24 17:23 | NURSING ---
[facility] ETA. 20 MIN
== END 2022-01-24 17:58 | disposition home or self-care (01) ==
PROVIDERS: Emergency Provider Emergency Medicine; PCP Nurse Practitioner Adult Health; Visit Provider Emergency Medicine
DX: E11.649 Type 2 diabetes mellitus with hypoglycemia without coma (principal); J44.9 Chronic obstructive pulmonary disease, unspecified; I11.0 Hypertensive heart disease with heart failure; I50.32 Chronic diastolic (congestive) heart failure; E11.42 Type 2 diabetes mellitus with diabetic polyneuropathy; Z79.4 Long term (current) use of insulin; D64.9 Anemia, unspecified; E78.5 Hyperlipidemia, unspecified; I25.10 Atherosclerotic heart disease of native coronary artery without angina pectoris; Z87.891 Personal history of nicotine dependence
CPT/HCPCS: 80048; 82962; 85025; 94640; 96374; 99285; A4216

== ENCOUNTER 2022-02-17 01:38 | Inpatient (IN) | payer MEDICARE, MEDICAID, SELFPAY ==
[2022-02-17] VITALS (23 sets, daily range): BP systolic 92–126; BP diastolic 37–86; PULSE 60–89; RESP 11–30; TEMP 35.9–37; O2SAT 96–100; BMI 40.1
--- NOTE | 2022-02-17 01:49 | RAD_ITS ---
STUDY: X-RAY CHEST REASON FOR EXAM: Female, 66 years old. edema TECHNIQUE: Single AP portable view of the chest. COMPARISON: None. FINDINGS: Ill-defined groundglass opacities are seen in the right and left lung base suggesting pulmonary edema or bilateral pneumonia. There is no demonstrated pleural abnormality. There is mild cardiac enlargement. Normal mediastinum and sol. There is prominence of the pulmonary hilar arteries and peripheral pulmonary arteries, consistent with congestive heart failure (CHF). Normal visualized aortic arch and descending thoracic aorta. There are diffuse degenerative changes of the visualized thoracic spine. Normal visualized ribs, clavicles, and shoulders. There is no demonstrated abnormality of the visualized soft tissue structures of the upper abdomen. RAD/Chest 1 View (Portable) IMPRESSION: Ill-defined groundglass opacities are seen in the right and left lung base suggesting pulmonary edema or bilateral pneumonia. There is mild cardiac enlargement. There is prominence of the pulmonary hilar arteries and peripheral pulmonary arteries, consistent with congestive heart failure (CHF). Electronically Signed: Ayo Hancock MD at 2:22 EST ,
--- NOTE | 2022-02-17 01:52 | EX.ED.DYSGE1 ---
HPI History of Present Illness Chief Complaint: Alt LOC Narrative Narrative: Patient has multiple medical problems. She is in an ECF. Apparently she was hard to arouse at the ECF, she is now back to baseline. Her blood sugar apparently was normal, she tells me she was sleeping and has no complaints. He does have chronic edema, she is oxygen dependent, and she has debility and weakness she is complaining about these but these have not changed or are not new. [facility] Medical History Acute cervical myofascial strain Acute on chronic respiratory failure with hypoxemia Acute respiratory failure with hypoxia Amputated toe of left foot Anemia Asthma Atherosclerotic heart disease of [place] coronary artery without angina pectoris Atrial fibrillation Atrial fibrillation with rapid ventricular response CAD (coronary artery disease) CHF (congestive heart failure) Chronic heart failure with preserved ejection fraction (HFpEF) Chronic heel ulcer Chronic respiratory failure with hypoxia, on home oxygen therapy Chronic ulcer of great toe of left foot Closed head injury Congestive heart failure (CHF) COPD (chronic obstructive pulmonary disease) Current use of insulin Decubitus ulcer of dorsum of foot, stage 2 Decubitus ulcer of left heel, stage 2 Decubitus ulcer of left heel, stage 3 Decubitus ulcer, heel, left, unstageable Depression Diabetes mellitus with diabetic polyneuropathy Diabetes type 2, controlled Diabetic foot ulcers Diverticulitis Essential hypertension Former smoker History of amputation of left great toe History of non-ST elevation myocardial infarction (NSTEMI) (02/24/17) Hyperlipidemia Hypothyroid Myocardial infarct Non-rheumatic tricuspid valve insufficiency Nondisplaced fracture of distal phalanx of right great toe, initial encounter for closed fracture Nonrheumatic mitral (valve) insufficiency Obesity Obstructive sleep apnea On home O2 Renal insufficiency Secondary pulmonary arterial hypertension Type 2 diabetes mellitus Vitamin D deficiency Home Medications aspirin 81 mg tablet,delayed release (Adult Aspirin Regimen) 81 mg PO DAILY heart 05/17/21 [History Last Taken 12/28/21] insulin detemir U-100 100 unit/mL (3 mL) subcutaneous pen (Levemir FlexTouch U-100 Insulin) 35 unit subcut QHS blood sugar 09/02/21 [History Last Taken 12/27/21] metoprolol succinate 50 mg tablet,extended release 24 hr 50 mg PO DAILY BLOOD PRESSURE 11/08/21 [History Last Taken 12/27/21] gabapentin 100 mg capsule 200 mg PO TID NERVE PAIN 12/13/21 [History Last Taken 12/28/21] levothyroxine 100 mcg tablet (Synthroid) 100 mcg PO DAILY THYROID 12/13/21 [History Last Taken 12/28/21] montelukast 10 mg tablet 10 mg PO QHS ALLERGIES 12/13/21 [History Last Taken 12/27/21] sennosides 8.6 mg-docusate sodium 50 mg tablet (Senna-S) 1 tab PO BID STOOL SOFTNER 12/13/21 [History Last Taken 12/27/21] trazodone 100 mg tablet 150 mg PO QHS SLEEP 12/13/21 [History Last Taken 12/27/21] albuterol sulfate 90 mcg/actuation aerosol inhaler 2 puff inhalation 4X/DAY PRN PRN Shortness Of Breath Or Wheezing 12/19/21 [History Last Taken Unknown] acetaminophen 325 mg tablet (Tylenol) 650 mg PO Q6H PRN PRN Pain 1-10 Or Fever >100.7 #0 tabs 12/21/21 [Rx Last Taken 12/27/21] arginine 7 gram-glutam 7 gram-CaHMB 1.5 uafh-kaume-ej-min oral pwd pkt (Say (with collagen)) 1 packet PO BIDCM #0 ea 12/21/21 [Rx Last Taken 12/27/21] ferrous sulfate 325 mg (65 mg iron) tablet (FeroSul) 325 mg PO LUNCH SUPPLEMENT 12/28/21 [History Last Taken 12/27/21] fluconazole 200 mg tablet 400 mg PO DAILY 12/28/21 [History Last Taken Unknown] insulin lispro 100 unit/mL subcutaneous pen (Humalog KwikPen (U-100) Insulin) 10 unit subcut TIDAC DIABETES 12/28/21 [History Last Taken 12/27/21] nystatin 100,000 unit/gram topical powder (Nyamyc) 1 applic topical TID IRRITATION 12/28/21 [History Last Taken 12/28/21] omeprazole 40 mg capsule,delayed release 40 mg PO BID GERD 12/28/21 [History Last Taken 12/27/21] polyethylene glycol 3350 17 gram oral powder packet 17 g PO DAILY CONSTIPATION 12/28/21 [History Last Taken 12/27/21] sodium chloride 0.9 % (flush) (Normal Saline Flush 0.9 % injection syringe) 10 ml IV QHS VANCOMYCIN 12/28/21 [History Last Taken 12/27/21] paroxetine HCl 20 mg tablet (Paxil) 20 mg PO DAILY 01/12/22 [History Last Taken Unknown] furosemide 40 mg tablet (Lasix) 40 mg PO BID #60 tabs 02/15/22 [Rx Last Taken Unknown] mirtazapine 30 mg tablet 15 mg PO QHS 02/17/22 [History Last Taken Unknown] Allergy/AdvReac Type Severity Reaction Status Date / Time doxycycline Allergy NEEDS Verified 02/17/22 02:59 FOLLOW-UP latex Allergy NEEDS Verified 02/17/22 02:59 FOLLOW-UP Sulfa (Sulfonamide Allergy Anaphylaxis Verified 02/17/22 02:59 Antibiotics) sulfur dioxide Allergy Anaphylaxis Verified 02/17/22 02:59 atorvastatin AdvReac Other Verified 02/17/22 02:59 oxycodone AdvReac Other Verified 02/17/22 02:59 Family History Grandmother Diabetes Mother Heart disease Surgical History H/O right heart catheterization History of cataract surgery History of coronary artery stent placement (02/24/17) History of heart artery stent Tubal ligation status Social History household members: none housing: other details: [facility]. Smoking Status: Former smoker how long ago did patient quit smokin alcohol intake: former year quit: 1999 substance use type: does not use caffeine: Yes Type: carbonated beverages and tea ROS ROS ED ROS Narrative Past medical history: Reviewed in the [facility] paperwork as well as [employer]. Medications: Reviewed Social history: Noncontributory Review of systems: All systems negative except as indicated General: No fever. Generalized weakness which was chronic Eyes: No visual changes ENT: No upper airway congestion, normal voice Neck: No neck pain Cardiovascular: No chest pain Respiratory: Chronic dyspnea on home O2 no change Gastrointestinal: No abdominal pain, nausea vomiting or diarrhea Genitourinary: No dysuria Musculoskeletal: Chronic upper and lower extremity edema. 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 Psych: No recent behavioral changes Hematologic: No easy bleeding or easy bruising EXAM Physical Exam Narrative Exam Narrative: Physical exam General: Patient appears chronically ill, she appears quite unhealthy. However she is comfortable and does not appear in any distress. Head: Normocephalic, Atraumatic Eyes: Conjunctiva not pale ENT: Moist mucous membranes, no signs of congestion Neck: Supple, Nontender, No lymphadenopathy Cardiovascular: Regular rate, Regular rhythm, I cannot appreciate any murmur. Normal S1 and S2, I cannot appreciate an S3 or S4 sound although it is quite loud in the room. Respiratory: No distress, coarse bilateral breath sounds, she is on her home oxygen and speaking in full sentences without respiratory distress Abdomen: Soft, Nontender, Nondistended Back: Nontender, Normal Inspection. Negative for: CVA tenderness Extremities: Upper and lower extremity edema which is pitting. Left lower extremity has dry gangrene of the2nd toe and foot region no signs of cellulitis currently. Skin: No cellulitis otherwise unremarkable skin color somewhat dry skin. Neurological: Alert, Normal Strength, Normal Sensation Psychological: Flat affect Const Vital Signs: 02/17/22 01:39 02/17/22 02:39 02/17/22 03:00 Temperature 96.7 F L Temperature Source Temporal Pulse Rate 75 66 65 Respiratory Rate 16 16 24 H Blood Pressure 110/86 H 93/53 L 92/58 L Blood Pressure Mean 94 66 69 Pulse Ox 100 100 100 Oxygen Delivery Method Nasal Cannula Nasal Cannula Nasal Cannula Oxygen Flow Rate (L/min) 4 4 4 MDM MDM Lab Data Labs: Laboratory Results - last 24 hr 02/17/22 02/17/22 02/17/22 01:45 02:09 02:09 WBC 7.5 RBC 2.93 L Hgb 7.7 L Hct 29.3 L MCV 100.0 H MCH 26.3 L MCHC 26.3 L RDW Std Deviation 67.8 H RDW Coeff of Magen 18.5 H Plt Count 131 L MPV 11.1 Immature Gran % (Auto) 0.400 Neut % (Auto) 76.8 H Lymph % (Auto) 11.0 L [place] % (Auto) 9.2 Eos % (Auto) 2.1 Baso % (Auto) 0.5 Absolute Neuts (auto) 5.8 Absolute Lymphs (auto) 0.83 Nucleated RBC % 0 Differential Comment SCANNED Anisocytosis 2+ Microcytosis 1+ Macrocytosis 1+ Sodium 138 Potassium 5.6 H Chloride 104 Carbon Dioxide 33.0 H Anion Gap 1 L BUN 77 H Creatinine 2.34 H Estim Creat Clear Calc 22.44 Est GFR (MDRD) Af Amer 27 L Est GFR (MDRD) Non-Af 22 L BUN/Creatinine Ratio 32.9 H Glucose 144 H Calcium 8.8 Total Bilirubin 0.20 AST 12 L ALT 11 L Alkaline Phosphatase 121 H B-Natriuretic Peptide Total Protein 6.0 L Albumin 2.1 L Globulin 3.9 Albumin/Globulin Ratio 0.5 L POC Glucose 154 H 02/17/22 02:09 WBC RBC Hgb Hct MCV MCH MCHC RDW Std Deviation RDW Coeff of Magen Plt Count MPV Immature Gran % (Auto) Neut % (Auto) Lymph % (Auto) [place] % (Auto) Eos % (Auto) Baso % (Auto) Absolute Neuts (auto) Absolute Lymphs (auto) Nucleated RBC % Differential Comment Anisocytosis Microcytosis Macrocytosis Sodium Potassium Chloride Carbon Dioxide Anion Gap BUN Creatinine Estim Creat Clear Calc Est GFR (MDRD) Af Amer Est GFR (MDRD) Non-Af BUN/Creatinine Ratio Glucose Calcium Total Bilirubin AST ALT Alkaline Phosphatase B-Natriuretic Peptide 553.3 H Total Protein Albumin Globulin Albumin/Globulin Ratio POC Glucose ABG Data ABG results: ABG 02/17/22 03:33 Specimen Type ART Sample Site L Brach pH 7.25 L Bicarbonate Actual 33.6 H Total CO2 36 Base Excess 6 H O2 Saturation 57 L ABG pCO2 76.8 H* ABG pO2 36 L* Hussain Test N/A O2 Delivery Device Cannula Liter Flow 3.0 Crit Call To/Read Back Yes Blood Gas Notified Whom [facility] Diagnostic Testing: Clinical Impression(s) from Imaging Studies Chest X-Ray 02/17/22 01:49 IMPRESSION: Ill-defined groundglass opacities are seen in the right and left lung base suggesting pulmonary edema or bilateral pneumonia. There is mild cardiac enlargement. There is prominence of the pulmonary hilar arteries and peripheral pulmonary arteries, consistent with congestive heart failure (CHF). Electronically Signed: Ayo Hancock MD at 2:22 EST , X-ray read by me and radiologist as CHF. Treatment and Re-Evaluation Narrative: Patient is found to have CHF, she is quite a bit of fluid on her lungs, however this may be coming from the kidney, she does have MIKE, she was recently placed on a diuretic, Lasix, this may cause some of her kidney issues. She is also found to be hypercarbic on a blood gas, I do not have any comparisons, but upon reevaluation she is quite somnolent therefore I will put her on a BiPAP. She will need reevaluated. I discussed with the hospitalist, Dr. Godoy, will admit. Critical Care Time Critical care time (excluding procedures): 30-74 minutes and - (I certify that I spent 30 minutes of critical care time with the patient, this includes direct bedside, documenting, discussing with consultants.) Discharge Plan Dx/Rx/DC Orders Clinical Impression: MIKE (acute kidney injury), CHF (congestive heart failure), Dry gangrene, Hypercarbia, Acute respiratory distress Disposition Disposition: Acute Care Hospital [facility]
[2022-02-17 02:06] LABS: Bedside Glucose 154 mg/dL (74-106)
[2022-02-17 02:13] LABS: Absolute Lymphocyte Count 0.83 X10^3/uL (0.83-4.51); Absolute Neutrophil Count 5.8 X10^3/uL (2.0-7.7); Basophil# 0.04 X10^3/uL; Basophil% 0.5 % (0-1); Eosinophil# 0.16 X10^3/uL; Eosinophils% 2.1 % (0-5); Hematocrit 29.3 % (37-47); Hemoglobin 7.7 g/dL (12.0-15.0); Lymphocyte # 0.83 X10^3/ul (0.83-4.51); Mean Corp Hgb Conc 26.3 g/dL (32-36); Mean Corpuscular Hgb 26.3 pg (27.0-32.0); Mean Platelet Vol. 11.1 fl (6.2-12.0); Monocyte# 0.69 X10^3/uL; Monocyte% 9.2 % (0-10); NRBC Flagged by Analyzer 0 % (0-5); Neutrophil # 5.78 X10^3/uL (2.7-7.7); Neutrophil % 76.8 % (47-70); POSITIVE MORPHOLOGY YES; Platelet Count 131 K/mm3 (150-450); RBC Distribution Width CV 18.5 % (11.6-14.6); RBC Distribution Width SD 67.8 fl (35.1-43.9); Red Blood Count 2.93 M/mm3 (4.2-5.4); White Blood Count 7.5 K/mm3 (4.4-11.0)
[2022-02-17 02:16] LABS: Differential Indicated SCAN CRITERIA MET
[2022-02-17 02:31] LABS: ALB/GLOB Ratio 0.5 RATIO (0.9-2.4); AST(SGOT) 12 U/L (15-37); Alanine Aminotransfer ALT/SGPT 11 U/L (13-56); Albumin, Serum 2.1 g/dL (3.2-5.0); Alkaline Phosphatase 121 U/L (45-117); Anion Gap 1 (5-15); BUN 77 mg/dL (7-18); BUN/Creat Ratio 32.9 RATIO (10-20); Calcium,Total 8.8 mg/dL (8.5-10.1); Chloride 104 mmol/L (98-107); Creatinine, Serum 2.34 mg/dL (0.55-1.02); EST Glomerular Filtration Rate 22 mL/min (>60); Est Glom Filt Rate - Afr Amer 27 mL/min (>60); Estimated Creatinine Clearance 22.44 ml/min; Globulin 3.9 g/dL (2.2-4.2); Glucose 144 mg/dL (74-106); Potassium 5.6 mmol/L (3.5-5.1); Sodium Level 138 mmol/L (136-145)
[2022-02-17 02:35] LABS: Anisocytosis 2+; Differential Comment SCANNED; Macrocytosis 1+; Microcytosis 1+
[2022-02-17 02:40] LABS: BNP,B-Type NATRIURETIC PEPTIDE 553.3 pg/mL (0-100)
[2022-02-17 03:40] LABS: Base Excess 6 mmol/L (-2 to +2); Bicarbonate 33.6 mmol/L (22-26); O2 Delivery Device Cannula; PO2 36 mmHG (75-100); SITE L Brach; SO2 57 % (95-99); Total Carbon Dioxide 36 mmol/L; pCO2 76.8 mmHg (35-45); pH 7.25 (7.35-7.45)
[2022-02-17 04:12] LABS: Blood Gas Specimen Type VEN
--- NOTE | 2022-02-17 04:13 | HP.PCM.HOS_ITS ---
HPI - General General Date of Admission: 02/17/22 Date of Service: 02/17/22 Chief Complaint: Unresponsiveness HPI Narrative SONA WILSON, is a 66 F who presents with a significant history of history of heart failure with preserved ejection fraction and who lives at the senior care presenting with unresponsiveness. Reportedly patient could not be awoken. Enroute to the emergency department and when patient got to the emergency department she was more arousable. Reportedly she has been more swollen than usual. Report was taken from emergency department doctor, emergency department nurses at time of history taking patient was very lethargic and was on a BiPAP. [facility] Medical History Acute cervical myofascial strain Acute on chronic respiratory failure with hypoxemia Acute respiratory failure with hypoxia Amputated toe of left foot Anemia Asthma Atherosclerotic heart disease of [place] coronary artery without angina pectoris Atrial fibrillation Atrial fibrillation with rapid ventricular response CAD (coronary artery disease) CHF (congestive heart failure) Chronic heart failure with preserved ejection fraction (HFpEF) Chronic heel ulcer Chronic respiratory failure with hypoxia, on home oxygen therapy Chronic ulcer of great toe of left foot Closed head injury Congestive heart failure (CHF) COPD (chronic obstructive pulmonary disease) Current use of insulin Decubitus ulcer of dorsum of foot, stage 2 Decubitus ulcer of left heel, stage 2 Decubitus ulcer of left heel, stage 3 Decubitus ulcer, heel, left, unstageable Depression Diabetes mellitus with diabetic polyneuropathy Diabetes type 2, controlled Diabetic foot ulcers Diverticulitis Essential hypertension Former smoker History of amputation of left great toe History of non-ST elevation myocardial infarction (NSTEMI) (02/24/17) Hyperlipidemia Hypothyroid Myocardial infarct Non-rheumatic tricuspid valve insufficiency Nondisplaced fracture of distal phalanx of right great toe, initial encounter for closed fracture Nonrheumatic mitral (valve) insufficiency Obesity Obstructive sleep apnea On home O2 Renal insufficiency Secondary pulmonary arterial hypertension Type 2 diabetes mellitus Vitamin D deficiency Home Medications aspirin 81 mg tablet,delayed release (Adult Aspirin Regimen) 81 mg PO DAILY h eart 05/17/21 [History Last Taken 12/28/21] insulin detemir U-100 100 unit/mL (3 mL) subcutaneous pen (Levemir FlexTouch U- 100 Insulin) 35 unit subcut QHS blood sugar 09/02/21 [History Last Taken 03/19] metoprolol succinate 50 mg tablet,extended release 24 hr 50 mg PO DAILY BLOOD PRESSURE 11/08/21 [History Last Taken 12/27/21] gabapentin 100 mg capsule 200 mg PO TID NERVE PAIN 12/13/21 [History Last Taken 12/28/21] levothyroxine 100 mcg tablet (Synthroid) 100 mcg PO DAILY THYROID 12/13/21 [Hi story Last Taken 12/28/21] montelukast 10 mg tablet 10 mg PO QHS ALLERGIES 12/13/21 [History Last Taken 12/27/21] sennosides 8.6 mg-docusate sodium 50 mg tablet (Senna-S) 1 tab PO BID STOOL SOFTNER 12/13/21 [History Last Taken 12/27/21] trazodone 100 mg tablet 150 mg PO QHS SLEEP 12/13/21 [History Last Taken 12/27/21] albuterol sulfate 90 mcg/actuation aerosol inhaler 2 puff inhalation 4X/DAY PRN PRN Shortness Of Breath Or Wheezing 12/19/21 [History Last Taken Unknown] acetaminophen 325 mg tablet (Tylenol) 650 mg PO Q6H PRN PRN Pain 1-10 Or Fever >100.7 #0 tabs 12/21/21 [Rx Last Taken 12/27/21] arginine 7 gram-glutam 7 gram-CaHMB 1.5 xrzn-pwads-gl-min oral pwd pkt (Say (with collagen)) 1 packet PO BIDCM #0 ea 12/21/21 [Rx Last Taken 12/27/21] ferrous sulfate 325 mg (65 mg iron) tablet (FeroSul) 325 mg PO LUNCH SUPPLEMENT 12/28/21 [History Last Taken 12/27/21] fluconazole 200 mg tablet 400 mg PO DAILY 12/28/21 [History Last Taken Unknown] insulin lispro 100 unit/mL subcutaneous pen (Humalog KwikPen (U-100) Insulin) 10 unit subcut TIDAC DIABETES 12/28/21 [History Last Taken 12/27/21] nystatin 100,000 unit/gram topical powder (Nyamyc) 1 applic topical TID IRRITATION 12/28/21 [History Last Taken 12/28/21] omeprazole 40 mg capsule,delayed release 40 mg PO BID GERD 12/28/21 [History Last Taken 12/27/21] polyethylene glycol 3350 17 gram oral powder packet 17 g PO DAILY CONSTIPATION 12/28/21 [History Last Taken 12/27/21] sodium chloride 0.9 % (flush) (Normal Saline Flush 0.9 % injection syringe) 10 ml IV QHS VANCOMYCIN 12/28/21 [History Last Taken 12/27/21] paroxetine HCl 20 mg tablet (Paxil) 20 mg PO DAILY 01/12/22 [History Last Taken Unknown] furosemide 40 mg tablet (Lasix) 40 mg PO BID #60 tabs 02/15/22 [Rx Last Taken Unknown] mirtazapine 30 mg tablet 15 mg PO QHS 02/17/22 [History Last Taken Unknown] Allergy/AdvReac Type Severity Reaction Status Date / Time doxycycline Allergy NEEDS Verified 02/17/22 02:59 FOLLOW-UP latex Allergy NEEDS Verified 02/17/22 02:59 FOLLOW-UP Sulfa (Sulfonamide Allergy Anaphylaxis Verified 02/17/22 02:59 Antibiotics) sulfur dioxide Allergy Anaphylaxis Verified 02/17/22 02:59 atorvastatin AdvReac Other Verified 02/17/22 02:59 oxycodone AdvReac Other Verified 02/17/22 02:59 Family History Grandmother Diabetes Mother Heart disease Surgical History H/O right heart catheterization History of cataract surgery History of coronary artery stent placement (02/24/17) History of heart artery stent Tubal ligation status Social History household members: none housing: other details: [facility]. Smoking Status: Former smoker how long ago did patient quit smokin alcohol intake: former year quit: 1999 substance use type: does not use caffeine: Yes Type: carbonated beverages and tea ROS Review of Systems ROS Unobtainable: due to mental condition Vital Signs Vital Signs Vital Signs: 02/17/22 01:39 02/17/22 02:39 02/17/22 03:00 Temperature 96.7 F L Temperature Source Temporal Pulse Rate 75 66 65 Respiratory Rate 16 16 24 H Blood Pressure 110/86 H 93/53 L 92/58 L Blood Pressure Mean 94 66 69 Pulse Ox 100 100 100 Oxygen Delivery Method Nasal Cannula Nasal Cannula Nasal Cannula Oxygen Flow Rate (L/min) 4 4 4 Fraction of Inspired Oxygen (FIO2) 02/17/22 03:56 02/17/22 04:00 Temperature Temperature Source Pulse Rate 63 62 Respiratory Rate 18 30 H Blood Pressure 107/54 L Blood Pressure Mean 71 Pulse Ox 100 98 Oxygen Delivery Method Bi-pap Oxygen Flow Rate (L/min) Fraction of Inspired Oxygen (FIO2) 35 35 Weight Weight: 113 kg Body Mass Index (BMI) 40.1 Physical Exam Narrative Physical exam: General: Morbidly obese. Head: Normocephalic, atraumatic, no tenderness Eyes: Vision is grossly intact. EOMI ENT, no trauma, moist mucous membranes, no rhinorrhea Neck: Nontender, No thyromegaly. CVS: Regular rate and rhythm. S1-S2 present. No murmur, gallop or rub. Respiratory : On BiPAP. Clear to auscultation bilaterally, chest wall n ontender, no wheezing Abdomen: Soft, nontender, nondistended, normal bowel sounds, no masses : Deferred Back: Nontender, no CVA tenderness, no midline spinal tenderness, deformities, step-offs Extremities: 4+ bilateral forearms extremities edema; and bilateral 4+ lower extremities edema. Loss of big toe of left foot. Also bilateral heels. Skin: Normal color, no trauma, abrasions Neuro: Lethargic, follow commands. Psychiatry: Lethargic Results Lab / Micro Data Result Diagrams: 02/17/22 02:09 02/17/22 02:09 Labs: Laboratory Results - last 24 hr 02/17/22 01:45: POC Glucose 154 H 02/17/22 02:09: WBC 7.5, RBC 2.93 L, Hgb 7.7 L, Hct 29.3 L, MCV 100.0 H, MCH 26.3 L, MCHC 26.3 L, RDW Std Deviation 67.8 H, RDW Coeff of Magen 18.5 H, Plt Count 131 L, MPV 11.1, Immature Gran % (Auto) 0.400, Neut % (Auto) 76.8 H, Lymph % (Auto) 11.0 L, [place] % (Auto) 9.2, Eos % (Auto) 2.1, Baso % (Auto) 0.5, Absolute Neuts (auto) 5.8, Absolute Lymphs (auto) 0.83, Nucleated RBC % 0, Differential Comment SCANNED, Anisocytosis 2+, Microcytosis 1+, Macrocytosis 1+ 02/17/22 02:09: Sodium 138, Potassium 5.6 H, Chloride 104, Carbon Dioxide 33.0 H , Anion Gap 1 L, BUN 77 H, Creatinine 2.34 H, Estim Creat Clear Calc 22.44, Est GFR (MDRD) Af Amer 27 L, Est GFR (MDRD) Non-Af 22 L, BUN/Creatinine Ratio 32.9 H , Glucose 144 H, Calcium 8.8, Total Bilirubin 0.20, AST 12 L, ALT 11 L, Alkaline Phosphatase 121 H, Total Protein 6.0 L, Albumin 2.1 L, Globulin 3.9, Albumin /Globulin Ratio 0.5 L 02/17/22 02:09: B-Natriuretic Peptide 553.3 H Micro: Microbiology 02/17/22 02:09 Nasal Secretion SARS-CoV-2 & FLU Antigen (Rapid) - Final ABG Data ABG results: ABG 02/17/22 03:33 Specimen Type ASHANTI Sample Site L Brach pH 7.25 L Bicarbonate Actual 33.6 H Total CO2 36 Base Excess 6 H O2 Saturation 57 L ABG pCO2 76.8 H* ABG pO2 36 L* Hussain Test N/A O2 Delivery Device Cannula Liter Flow 3.0 Crit Call To/Read Back Yes Blood Gas Notified Whom [facility] Radiology Impression Chest X-Ray 02/17/22 01:49 IMPRESSION: Ill-defined groundglass opacities are seen in the right and left lung base suggesting pulmonary edema or bilateral pneumonia. There is mild cardiac enlargement. There is prominence of the pulmonary hilar arteries and peripheral pulmonary arteries, consistent with congestive heart failure (CHF). Electronically Signed: Ayo Hancock MD at 2:22 EST , Assessment & Plan Assessment/Plan (1) Acute respiratory failure with hypoxia and hypercapnia: (2) Chronic congestive heart failure: (3) Multiple wounds: (4) MIKE (acute kidney injury): PLAN: Plan Acute on chronic respiratory failure with hypoxia and hypercapnia Venous blood gas showed PCO2 of 76.8 and PO2 of 36. Placed on BiPAP at the emergency department and continued. Acute metabolic and toxic encephalopathy Likely multifactorial from hypoxia, hypercapnia and medication. Hold home mirtazapine and trazodone. Diabetes mellitus Blood glucose mildly elevated. Adjust home basal insulin. Hold home prandial insulin. Accu-Chek with correction scale insulin ordered MIKE on CKD stage II CKD stage II likely secondary to CHF and diabetes Creatinine presentation was 2.34. Baseline creatinine is around 1. Likely secondary to diuretic use. De-escalate dose of diuretics. Escalate dose of gabapentin. Avoid nephrotoxins. Trend BMP. Hyperkalemia Likely secondary MIKE. Potassium of 5.6. Trend. Chronic heart failure with preserved ejection fraction Doubts whether patient is in acute sedation. Chest x-ray showed bilateral pulmonary infiltrates which is unchanged compared to previous. De-escalate home dose of Lasix secondary to MIKE evaluated creatinine and BUN. Trend BMP. Hypertension Blood pressures are soft. De-escalate home dose of metoprolol. Parameters placed. Trend blood pressures Chronic anemia Stable DVT prophylaxis Subcutaneous Lovenox ordered. Charges/Coding Visit Charges OBSV E&M: 67714 Initial observation care L3
[2022-02-17 09:05] LABS: Bedside Glucose 68 mg/dL (74-106)
[2022-02-17] MEDS: Nystatin Powder 15gm Bottle 1 APPLIC TOPICAL ×3 (10:18→21:28)
[2022-02-17] MEDS: Juven (unflavored) Packet 1 PACKET PO ×2 (10:19→17:15)
[2022-02-17] MEDS: Fluconazole 100 MG Tablet 200 MG PO (10:19)
[2022-02-17] MEDS: Levothyroxine 100 MCG Tablet PO (10:19)
[2022-02-17] MEDS: Aspirin E.C. 81 MG Tablet PO (10:19)
[2022-02-17] MEDS: Polyethylene Glycol 3350 17 GM PACKET PO (10:20)
[2022-02-17] MEDS: Pantoprazole Sodium 40 MG Tablet PO ×2 (10:20→20:30)
[2022-02-17] MEDS: Senna/Docusate Sodium 1 Tablet PO ×2 (10:20→20:30)
[2022-02-17] MEDS: Metoprolol(XL)Succ 25 MG Tablet 12.5 MG PO (10:20)
[2022-02-17] MEDS: Paroxetine 20 MG Tablet PO (10:20)
[2022-02-17] MEDS: Furosemide 40 MG/4 ML Vial IV ×2 (10:20→17:15)
[2022-02-17] MEDS: Gabapentin 100 MG Capsule 200 MG PO ×3 (10:35→17:15)
--- NOTE | 2022-02-17 11:18 | CASEMGMT ---
Addendum entered by Clare Kaufman 02/17/22 14:17: Patient needs a pre-cert to return to [facility]. Clare DASILVA Original Note: GREG sent updates to [facility] via [facility]. GREG also inquired if patient will need insurance authorization to return. Clare DASILVA
[2022-02-17] MEDS: Ferrous Sulfate 325 MG Tablet PO (12:57)
[2022-02-17 13:00] LABS: Bedside Glucose 83 mg/dL (74-106)
[2022-02-17] MEDS: Acetaminophen 325 MG Tablet 650 MG PO (14:14)
[2022-02-17 17:25] LABS: Bedside Glucose 104 mg/dL (74-106)
[2022-02-17] MEDS: Montelukast 10 MG Tablet PO (20:30)
[2022-02-17] MEDS: Insulin Glargine-YFGN 100 UNIT/ML Pen 35 UNIT SC (21:27)
[2022-02-17] MEDS: Insulin Lispro 100 UNIT/ML INSULN.PEN SC (21:27)
[2022-02-17 23:20] LABS: Bedside Glucose 210 mg/dL (74-106)
--- NOTE | 2022-02-17 23:34 | CPS ---
Pt declined to go on bipap for RT at this time. pt on 3L spo2 96.
[2022-02-18] VITALS (16 sets, daily range): BP systolic 109–135; BP diastolic 25–65; PULSE 71–85; RESP 15–18; TEMP 36.3–37.1; O2SAT 91–100
--- NOTE | 2022-02-18 04:29 | NURSING ---
pt refusing josé antonio wraps to legs at this time. attempted to educate pt, pt still declining wraps.
[2022-02-18 05:40] LABS: Absolute Lymphocyte Count 0.78 X10^3/uL (0.83-4.51); Basophil# 0.03 X10^3/uL; Basophil% 0.5 % (0-1); Eosinophil# 0.14 X10^3/uL; Eosinophils% 2.1 % (0-5); Hematocrit 25.8 % (37-47); Hemoglobin 7.6 g/dL (12.0-15.0); Lymphocyte # 0.78 X10^3/ul (0.83-4.51); Lymphocyte % 11.8 % (19-41); Mean Corp Hgb Conc 29.5 g/dL (32-36); Mean Corpuscular Hgb 27.9 pg (27.0-32.0); Mean Corpuscular Volume 94.9 fL (81-99); Mean Platelet Vol. 11.6 fl (6.2-12.0); Monocyte# 0.61 X10^3/uL; Monocyte% 9.2 % (0-10); NRBC Flagged by Analyzer 0 % (0-5); Neutrophil # 5.02 X10^3/uL (2.7-7.7); Neutrophil % 75.9 % (47-70); Platelet Count 143 K/mm3 (150-450); RBC Distribution Width CV 18.5 % (11.6-14.6); RBC Distribution Width SD 63.6 fl (35.1-43.9); Red Blood Count 2.72 M/mm3 (4.2-5.4); White Blood Count 6.6 K/mm3 (4.4-11.0)
[2022-02-18 06:07] LABS: Anion Gap 3 (5-15); BUN 87 mg/dL (7-18); BUN/Creat Ratio 38.8 RATIO (10-20); Calcium,Total 8.9 mg/dL (8.5-10.1); Chloride 103 mmol/L (98-107); Creatinine, Serum 2.24 mg/dL (0.55-1.02); EST Glomerular Filtration Rate 23 mL/min (>60); Est Glom Filt Rate - Afr Amer 28 mL/min (>60); Estimated Creatinine Clearance 23.44 ml/min; Glucose 154 mg/dL (74-106); Potassium 5.3 mmol/L (3.5-5.1); Sodium Level 139 mmol/L (136-145)
[2022-02-18] MEDS: Nystatin Powder 15gm Bottle 1 APPLIC TOPICAL ×3 (06:41→20:57)
[2022-02-18] MEDS: Levothyroxine 100 MCG Tablet PO (06:41)
[2022-02-18 07:11] LABS: Bedside Glucose 137 mg/dL (74-106)
[2022-02-18] MEDS: Juven (unflavored) Packet 1 PACKET PO ×2 (08:11→16:38)
[2022-02-18] MEDS: Gabapentin 100 MG Capsule 200 MG PO ×3 (08:11→16:38)
[2022-02-18] MEDS: Aspirin E.C. 81 MG Tablet PO (08:11)
--- NOTE | 2022-02-18 11:12 | PN.HOSP_ITS ---
Subjective Subjective Feels a bit better than when she came in but still little short of breath. Objective Data Objective Data Vital Signs: Vital Signs Temp Pulse Resp BP Pulse Ox O2 Del Method O2 Flow Rate 98.7 F 71 18 129/64 H 96 Nasal Cannula 4 02/18/22 06:33 02/18/22 07:34 02/18/22 06:33 02/18/22 06:33 02/18/22 07:20 02/18/22 08:07 02/18/22 08:07 FiO2 98 02/17/22 20:00 Oxygen Flow Rate (L/min) 4 Oxygen Delivery Method Nasal Cannula Weight: 249 lb 0.017 oz Body Mass Index (BMI) 40.1 Intake & Output: Intake and Output for Last 24 Hours 02/17/22 02/18/22 02/19/22 03:59 03:59 03:59 Intake Total 660 / 660 Output Total 1300 / 1300 250 / 250 Balance -640 / -640 -250 / -250 Lab / Micro Data Result Diagrams: 02/18/22 05:05 02/18/22 05:05 Labs: Laboratory Results - last 24 hr 02/17/22 12:43: POC Glucose 83 02/17/22 16:45: POC Glucose 104 02/17/22 21:26: POC Glucose 210 H 02/18/22 05:05: WBC 6.6, RBC 2.72 L, Hgb 7.6 L, Hct 25.8 L, MCV 94.9 D, MCH 27.9, MCHC 29.5 L D, RDW Std Deviation 63.6 H, RDW Coeff of Magen 18.5 H, Plt Count 143 L, MPV 11.6, Immature Gran % (Auto) 0.500, Neut % (Auto) 75.9 H, Lymph % (Auto) 11.8 L, [place] % (Auto) 9.2, Eos % (Auto) 2.1, Baso % (Auto) 0.5, Absolute Neuts (auto) 5.0, Absolute Lymphs (auto) 0.78 L, Nucleated RBC % 0 02/18/22 05:05: Sodium 139, Potassium 5.3 H, Chloride 103, Carbon Dioxide 33.0 H , Anion Gap 3 L, BUN 87 H, Creatinine 2.24 H, Estim Creat Clear Calc 23.44, Est GFR (MDRD) Af Amer 28 L, Est GFR (MDRD) Non-Af 23 L, BUN/Creatinine Ratio 38.8 H , Glucose 154 H, Calcium 8.9 02/18/22 06:38: POC Glucose 137 H Micro: Microbiology 02/17/22 02:09 Nasal Secretion SARS-CoV-2 & FLU Antigen (Rapid) - Final Physical Exam Narrative General: Alert, Oriented x3, Cooperative, No apparent distress HEENT: Atraumatic, PERRLA, EOMI, Normocephalic Oral: Dry mucosa Neck: Supple, No JVD Lungs: Diminished, Normal air movement, No rhonchi, No wheeze, No rales Cardiovascular: Regular rate, Regular Rhythm, Normal S1, Normal S2, No murmurs Abdomen: Soft, Non Tender, Non-Distended, No Hepato-splenomegaly Extremities: Anasarca, Capillary Refill Less than 3 Seconds Skin: We will keep her lower extremities wrapped, her left second toe is necrotic and gangrenous Musculoskeletal: No Tenderness to Palpation of Joints or Extremities Neurological: Cranial nerves II-XII grossly intact, Motor Exam 5/5 strength throughout, Sensory exam intact to light touch and pain Psych/Mental Status: Normal Affect, Appropriate Assessment & Plan Assessment/Plan (1) Acute respiratory failure with hypoxia and hypercapnia: (2) Chronic congestive heart failure: (3) Multiple wounds: (4) MIKE (acute kidney injury): PLAN: Plan 1.? Acute on chronic hypoxic and hypercapnic respiratory failure secondary to acute on chronic diastolic CHF exacerbation and severe pulmonary hypertension/HTN/HLD/CAD status post stent/MIKE -Continue with IV Lasix ? ABG on admission demonstrated PCO2 of 76.8 with a PO2 of 36 and she was placed on BiPAP currently doing well with the diuresis and is on nasal cannula -Echo with a normal EF and a RVSP of 55 mmHg -We will continue with her home blood pressure medications -Continue with her aspirin, she is allergic to statins 2.? DM2 with peripheral neuropathy and diabetic foot wounds -Continue with long-acting insulin -Accu-Cheks AC at bedtime ? Continue sliding scale insulin ? We will make adjustments as necessary ? She has had a left great toe amputation and her left second toe appears to be gangrenous, she says that she is following up with podiatry as an outpatient and will likely need an amputation. She does not have a white count and is afebrile ? Continue with her gabapentin, will monitor given her MIKE which is improving with Lasix 3.? COPD -Does not appear to be in exacerbation, will continue with her home inhalers -Continue with montelukast 4. Hypothyroidism ? Stable ? Continue Synthroid 5. GERD ? Stable ? Continue with PPI 6. Anxiety/depression ? Stable ? Continue with Paxil DVT: Lovenox Charges/Coding Visit Charges Inpatient E&M: 78983 Subs Hosp L2
[2022-02-18] MEDS: Senna/Docusate Sodium 1 Tablet PO ×2 (11:21→20:57)
[2022-02-18] MEDS: Furosemide 40 MG/4 ML Vial IV ×2 (11:21→18:05)
[2022-02-18] MEDS: Enoxaparin 30 MG/0.3 ML Syringe SC (11:22)
[2022-02-18] MEDS: Metoprolol(XL)Succ 25 MG Tablet 12.5 MG PO (11:23)
[2022-02-18] MEDS: Polyethylene Glycol 3350 17 GM PACKET PO (11:23)
[2022-02-18] MEDS: Pantoprazole Sodium 40 MG Tablet PO ×2 (11:24→20:57)
[2022-02-18] MEDS: Fluconazole 100 MG Tablet 200 MG PO (11:26)
[2022-02-18] MEDS: Insulin Lispro 100 UNIT/ML INSULN.PEN SC ×2 (11:28→20:57)
[2022-02-18] MEDS: 0.9% Saline Lock 10 ML Syringe IV ×3 (11:30→18:06)
[2022-02-18] MEDS: Ferrous Sulfate 325 MG Tablet PO (11:34)
[2022-02-18 12:15] LABS: Bedside Glucose 154 mg/dL (74-106)
[2022-02-18] MEDS: Acetaminophen 325 MG Tablet 650 MG PO (13:01)
[2022-02-18] MEDS: Paroxetine 20 MG Tablet PO (13:35)
[2022-02-18 17:10] LABS: Bedside Glucose 145 mg/dL (74-106)
[2022-02-18] MEDS: Insulin Glargine-YFGN 100 UNIT/ML Pen 35 UNIT SC (20:56)
[2022-02-18] MEDS: Montelukast 10 MG Tablet PO (20:57)
[2022-02-18 23:20] LABS: Bedside Glucose 191 mg/dL (74-106)
[2022-02-19] VITALS (14 sets, daily range): BP systolic 123–136; BP diastolic 57–78; PULSE 81–92; RESP 14–20; TEMP 36.3–36.9; O2SAT 93–100
[2022-02-19] MEDS: Levothyroxine 100 MCG Tablet PO (06:16)
[2022-02-19] MEDS: Menthol/Lanolin/Calamine/Znox 113 GM Tube 1 APPLIC TOPICAL ×2 (06:16→22:01)
[2022-02-19] MEDS: Nystatin Powder 15gm Bottle 1 APPLIC TOPICAL ×3 (06:17→22:01)
[2022-02-19 07:05] LABS: Bedside Glucose 122 mg/dL (74-106)
[2022-02-19] MEDS: Enoxaparin 30 MG/0.3 ML Syringe SC (08:10)
[2022-02-19] MEDS: Fluconazole 100 MG Tablet 200 MG PO (08:11)
[2022-02-19] MEDS: Juven (unflavored) Packet 1 PACKET PO ×2 (08:11→16:07)
[2022-02-19] MEDS: Paroxetine 20 MG Tablet PO (08:12)
[2022-02-19] MEDS: Aspirin E.C. 81 MG Tablet PO (08:13)
[2022-02-19] MEDS: Pantoprazole Sodium 40 MG Tablet PO ×2 (08:13→22:00)
[2022-02-19] MEDS: Polyethylene Glycol 3350 17 GM PACKET PO (08:14)
[2022-02-19] MEDS: Metoprolol(XL)Succ 25 MG Tablet 12.5 MG PO (08:14)
[2022-02-19] MEDS: Furosemide 40 MG/4 ML Vial IV ×2 (08:15→16:07)
[2022-02-19] MEDS: Senna/Docusate Sodium 1 Tablet PO ×2 (08:15→22:00)
[2022-02-19] MEDS: Gabapentin 100 MG Capsule 200 MG PO ×3 (08:19→16:15)
--- NOTE | 2022-02-19 10:42 | PCM.PN.HOSP ---
Subjective Subjective Doing well, feels little bit better today. Still awaiting lab work in order to see her renal function prior to adjusting her diuretics Objective Data Objective Data Vital Signs: Vital Signs Temp Pulse Resp BP Pulse Ox O2 Del Method O2 Flow Rate 97.5 F L 81 18 136/57 H 98 Nasal Cannula 3 02/19/22 08:00 02/19/22 08:14 02/19/22 08:00 02/19/22 08:14 02/19/22 08:00 02/19/22 08:03 02/19/22 08:03 FiO2 98 02/17/22 20:00 Oxygen Flow Rate (L/min) 3 Oxygen Delivery Method Nasal Cannula Weight: 249 lb 0.017 oz Body Mass Index (BMI) 40.1 Intake & Output: Intake and Output for Last 24 Hours 02/18/22 02/19/22 02/20/22 03:59 03:59 03:59 Intake Total 660 / 660 480 / 480 Output Total 1300 / 1300 950 / 950 Balance -640 / -640 -470 / -470 Lab / Micro Data Result Diagrams: 02/18/22 05:05 02/18/22 05:05 Labs: Laboratory Results - last 24 hr 02/18/22 11:28: POC Glucose 154 H 02/18/22 16:30: POC Glucose 145 H 02/18/22 20:51: POC Glucose 191 H 02/19/22 06:19: POC Glucose 122 H Micro: Microbiology 02/17/22 02:09 Nasal Secretion SARS-CoV-2 & FLU Antigen (Rapid) - Final Physical Exam Narrative General: Alert, Oriented x3, Cooperative, No apparent distress HEENT: Atraumatic, PERRLA, EOMI, Normocephalic Oral: Dry mucosa Neck: Supple, No JVD Lungs: Diminished, Normal air movement, No rhonchi, No wheeze, No rales Cardiovascular: Regular rate, Regular Rhythm, Normal S1, Normal S2, No murmurs Abdomen: Soft, Non Tender, Non-Distended, No Hepato-splenomegaly Extremities: Anasarca, Capillary Refill Less than 3 Seconds Skin: We will keep her lower extremities wrapped, her left second toe is necrotic and gangrenous Musculoskeletal: No Tenderness to Palpation of Joints or Extremities Neurological: Cranial nerves II-XII grossly intact, Motor Exam 5/5 strength throughout, Sensory exam intact to light touch and pain Psych/Mental Status: Normal Affect, Appropriate Assessment & Plan Assessment/Plan (1) Acute respiratory failure with hypoxia and hypercapnia: (2) Chronic congestive heart failure: (3) Multiple wounds: (4) MIKE (acute kidney injury): PLAN: Plan 1.? Acute on chronic hypoxic and hypercapnic respiratory failure secondary to acute on chronic diastolic CHF exacerbation and severe pulmonary hypertension/HTN/HLD/CAD status post stent/MIKE -Continue with IV Lasix, will await her renal function for today prior to adjusting her diuretics ? ABG on admission demonstrated PCO2 of 76.8 with a PO2 of 36 and she was placed on BiPAP currently doing well with the diuresis and is on nasal cannula -Recent Echo with a normal EF and a RVSP of 55 mmHg -We will continue with her home blood pressure medications -Continue with her aspirin, she is allergic to statins 2.? DM2 with peripheral neuropathy and diabetic foot wounds -Continue with long-acting insulin -Accu-Cheks AC at bedtime ? Continue sliding scale insulin ? We will make adjustments as necessary ? She has had a left great toe amputation and her left second toe appears to be gangrenous, she says that she is following up with podiatry as an outpatient and will likely need an amputation. She does not have a white count and is afebrile ? Continue with her gabapentin, will monitor given her MIKE which is improving with Lasix 3.? COPD -Does not appear to be in exacerbation, will continue with her home inhalers -Continue with montelukast 4. Hypothyroidism ? Stable ? Continue Synthroid 5. GERD ? Stable ? Continue with PPI 6. Anxiety/depression ? Stable ? Continue with Paxil DVT: Lovenox Charges/Coding Visit Charges Inpatient E&M: 80878 Subs Hosp L2
[2022-02-19] MEDS: Ferrous Sulfate 325 MG Tablet PO (11:20)
[2022-02-19] MEDS: Insulin Lispro 100 UNIT/ML INSULN.PEN SC ×2 (11:20→16:07)
[2022-02-19 11:46] LABS: Bedside Glucose 160 mg/dL (74-106)
[2022-02-19 16:15] LABS: Absolute Lymphocyte Count 0.87 X10^3/uL (0.83-4.51); Absolute Neutrophil Count 6.8 X10^3/uL (2.0-7.7); Basophil# 0.04 X10^3/uL; Basophil% 0.5 % (0-1); Eosinophil# 0.11 X10^3/uL; Eosinophils% 1.3 % (0-5); Hematocrit 25.8 % (37-47); Hemoglobin 7.6 g/dL (12.0-15.0); Lymphocyte # 0.87 X10^3/ul (0.83-4.51); Lymphocyte % 10.2 % (19-41); Mean Corp Hgb Conc 29.5 g/dL (32-36); Mean Corpuscular Hgb 27.5 pg (27.0-32.0); Mean Corpuscular Volume 93.5 fL (81-99); Monocyte# 0.69 X10^3/uL; Monocyte% 8.1 % (0-10); NRBC Flagged by Analyzer 0 % (0-5); Neutrophil # 6.81 X10^3/uL (2.7-7.7); Neutrophil % 79.5 % (47-70); Platelet Count 137 K/mm3 (150-450); RBC Distribution Width CV 18.8 % (11.6-14.6); RBC Distribution Width SD 63.7 fl (35.1-43.9); Red Blood Count 2.76 M/mm3 (4.2-5.4); White Blood Count 8.6 K/mm3 (4.4-11.0)
[2022-02-19] MEDS: 0.9% Saline Lock 10 ML Syringe IV (16:17)
[2022-02-19 16:28] LABS: Anion Gap 0 (5-15); BUN 84 mg/dL (7-18); BUN/Creat Ratio 42.4 RATIO (10-20); Chloride 105 mmol/L (98-107); Creatinine, Serum 1.98 mg/dL (0.55-1.02); EST Glomerular Filtration Rate 27 mL/min (>60); Est Glom Filt Rate - Afr Amer 32 mL/min (>60); Estimated Creatinine Clearance 26.52 ml/min; Glucose 162 mg/dL (74-106); Potassium 5.2 mmol/L (3.5-5.1); Sodium Level 141 mmol/L (136-145)
[2022-02-19 16:41] LABS: Bedside Glucose 150 mg/dL (74-106)
[2022-02-19 21:30] LABS: Bedside Glucose 142 mg/dL (74-106)
[2022-02-19] MEDS: Insulin Glargine-YFGN 100 UNIT/ML Pen 35 UNIT SC (22:00)
[2022-02-19] MEDS: Montelukast 10 MG Tablet PO (22:00)
[2022-02-19] MEDS: Acetaminophen 325 MG Tablet 650 MG PO (22:00)
[2022-02-20] VITALS (12 sets, daily range): BP systolic 129–164; BP diastolic 58–82; PULSE 80–98; RESP 14–18; TEMP 36.6–36.8; O2SAT 88–98
[2022-02-20] MEDS: Levothyroxine 100 MCG Tablet PO (06:28)
[2022-02-20] MEDS: Nystatin Powder 15gm Bottle 1 APPLIC TOPICAL ×3 (06:29→21:39)
[2022-02-20 07:03] LABS: Absolute Lymphocyte Count 0.86 X10^3/uL (0.83-4.51); Absolute Neutrophil Count 5.9 X10^3/uL (2.0-7.7); Basophil# 0.03 X10^3/uL; Basophil% 0.4 % (0-1); Eosinophil# 0.16 X10^3/uL; Eosinophils% 2.1 % (0-5); Hematocrit 26.5 % (37-47); Hemoglobin 7.4 g/dL (12.0-15.0); Lymphocyte # 0.86 X10^3/ul (0.83-4.51); Lymphocyte % 11.2 % (19-41); Mean Corp Hgb Conc 27.9 g/dL (32-36); Mean Corpuscular Hgb 26.6 pg (27.0-32.0); Mean Corpuscular Volume 95.3 fL (81-99); Mean Platelet Vol. 10.9 fl (6.2-12.0); Monocyte# 0.69 X10^3/uL; NRBC Flagged by Analyzer 0 % (0-5); Neutrophil # 5.89 X10^3/uL (2.7-7.7); Neutrophil % 76.6 % (47-70); Platelet Count 135 K/mm3 (150-450); RBC Distribution Width CV 18.6 % (11.6-14.6); RBC Distribution Width SD 64.8 fl (35.1-43.9); Red Blood Count 2.78 M/mm3 (4.2-5.4); White Blood Count 7.7 K/mm3 (4.4-11.0)
[2022-02-20 07:38] LABS: Anion Gap 1 (5-15); BUN 76 mg/dL (7-18); Calcium,Total 9.4 mg/dL (8.5-10.1); Chloride 107 mmol/L (98-107); Creatinine, Serum 1.69 mg/dL (0.55-1.02); EST Glomerular Filtration Rate 32 mL/min (>60); Est Glom Filt Rate - Afr Amer 39 mL/min (>60); Estimated Creatinine Clearance 31.07 ml/min; Glucose 73 mg/dL (74-106); Potassium 4.6 mmol/L (3.5-5.1); Sodium Level 144 mmol/L (136-145)
[2022-02-20 08:05] LABS: Bedside Glucose 74 mg/dL (74-106)
[2022-02-20] MEDS: Enoxaparin 30 MG/0.3 ML Syringe SC (08:51)
[2022-02-20] MEDS: Furosemide 40 MG/4 ML Vial IV ×3 (08:52→21:40)
[2022-02-20] MEDS: 0.9% Saline Lock 10 ML Syringe IV ×2 (08:52→21:56)
[2022-02-20] MEDS: Aspirin E.C. 81 MG Tablet PO (08:52)
[2022-02-20] MEDS: Juven (unflavored) Packet 1 PACKET PO ×2 (08:52→16:27)
[2022-02-20] MEDS: Menthol/Lanolin/Calamine/Znox 113 GM Tube 1 APPLIC TOPICAL ×2 (08:52→21:40)
[2022-02-20] MEDS: Fluconazole 100 MG Tablet 200 MG PO (08:53)
[2022-02-20] MEDS: Polyethylene Glycol 3350 17 GM PACKET PO (08:53)
[2022-02-20] MEDS: Paroxetine 20 MG Tablet PO (08:54)
[2022-02-20] MEDS: Pantoprazole Sodium 40 MG Tablet PO ×2 (08:54→21:41)
[2022-02-20] MEDS: Metoprolol(XL)Succ 25 MG Tablet 12.5 MG PO (08:55)
[2022-02-20] MEDS: Senna/Docusate Sodium 1 Tablet PO ×2 (08:55→21:41)
[2022-02-20] MEDS: Gabapentin 100 MG Capsule 200 MG PO ×2 (11:20→16:27)
[2022-02-20] MEDS: Ferrous Sulfate 325 MG Tablet PO (11:20)
[2022-02-20 11:45] LABS: Bedside Glucose 106 mg/dL (74-106)
[2022-02-20] MEDS: Acetaminophen 325 MG Tablet 650 MG PO (14:22)
--- NOTE | 2022-02-20 16:31 | PN.HOSP_ITS ---
Subjective Subjective Patient states that she feels like her breathing is improving. She is still requiring 2 L nasal cannula. She is negative just over 3 L for the hospitalization. Objective Data Objective Data Vital Signs: Vital Signs Temp Pulse Resp BP Pulse Ox O2 Del Method O2 Flow Rate 97.8 F 86 18 144/82 H 93 Nasal Cannula 2 02/20/22 15:00 02/20/22 15:00 02/20/22 15:00 02/20/22 15:00 02/20/22 15:00 02/20/22 15:00 02/20/22 15:00 FiO2 98 02/17/22 20:00 Oxygen Flow Rate (L/min) 2 Oxygen Delivery Method Nasal Cannula Weight: 112.945 kg Body Mass Index (BMI) 40.1 Intake & Output: Intake and Output for Last 24 Hours 02/18/22 02/19/22 02/20/22 23:59 23:59 23:59 Intake Total 480 / 480 120 / 120 Output Total 950 / 950 1600 / 1600 700 / 700 Balance -470 / -470 -1600 / -1600 -580 / -580 Lab / Micro Data Result Diagrams: 02/20/22 06:26 02/20/22 06:26 Labs: Laboratory Results - last 24 hr 02/19/22 16:00: POC Glucose 150 H 02/19/22 20:55: POC Glucose 142 H 02/20/22 06:26: WBC 7.7, RBC 2.78 L, Hgb 7.4 L, Hct 26.5 L, MCV 95.3, MCH 26.6 L , MCHC 27.9 L D, RDW Std Deviation 64.8 H, RDW Coeff of Magen 18.6 H, Plt Count 135 L, MPV 10.9, Immature Gran % (Auto) 0.700, Neut % (Auto) 76.6 H, Lymph % (Auto) 11.2 L, [place] % (Auto) 9.0, Eos % (Auto) 2.1, Baso % (Auto) 0.4, Absolute Neuts (auto) 5.9, Absolute Lymphs (auto) 0.86, Nucleated RBC % 0 02/20/22 06:26: Sodium 144, Potassium 4.6, Chloride 107, Carbon Dioxide 36.0 H, Anion Gap 1 L, BUN 76 H, Creatinine 1.69 H, Estim Creat Clear Calc 31.07, Est GFR (MDRD) Af Amer 39 L, Est GFR (MDRD) Non-Af 32 L, BUN/Creatinine Ratio 45.0 H , Glucose 73 L, Calcium 9.4 02/20/22 06:31: POC Glucose 74 02/20/22 11:16: POC Glucose 106 Micro: Microbiology 02/17/22 02:09 Nasal Secretion SARS-CoV-2 & FLU Antigen (Rapid) - Final Physical Exam Const alert and oriented x3 Constitutional Narrative: Upper middle-aged white female sitting up in bed on oxygen, appears older than stated age, appears chronically ill but no acute signs of illness, nontoxic, appears comfortable at this time HEENT head/scalp atraumatic and moist oral mucous membranes HEENT Narrative: Edentulous, Mallampati 2, no thrush Resp normal respiratory effort, no retractions, no use of accessory muscles and No clear to auscultation bilaterally Resp Narrative: Diffusely diminished with few scattered crackles Cardio regular rate, regular rhythm, S1 normal heart sound, S2 normal heart sound, no murmurs, no rub, no gallops and no clicks GI normal to inspection, nondistended, normoactive bowel sounds, soft to palpation and non-tender Extremity Extremity Narrative: 1+ pitting edema bilateral lower extremities, no cyanosis or clubbing Skin Skin Narrative: Bilateral lower extremity diabetic foot wounds noted, dressings in place Neuro oriented x3, moves all extremities and no focal motor deficits Neuro Narrative: Bilateral lower extremity neuropathy,, generalized weakness Speech: speech normal Psych Psych Narrative: Affect somewhat at but eye contact is good and patient is appropriately interactive Assessment & Plan Assessment/Plan (1) Acute respiratory failure with hypoxia and hypercapnia: (2) CHF (congestive heart failure): (3) MIKE (acute kidney injury): (4) Dry gangrene: (5) Multiple wounds: (6) Morbid obesity: PLAN: Plan Acute on chronic hypoxic and hypercapnic respiratory failure secondary to decompensated HFpEF/severe pulmonary artery hypertension -Currently on 2 L nasal cannula -Echo from 10/17/2021 shows an EF of 55%/mild left atrial enlargement, moderate mitral and tricuspid valve insufficiency, and a right ventricular systolic pressure of 55 mmHg with indeterminate diastolic function -Continue diuresis but will increase to 3 times daily -Serum creatinine improved with diuresis so I suspect this is cardiorenal in nature -Repeat lab in a.m. -Strict I's and O's -Sodium restricted diet -Add fluid restriction of 1750 cc Hyperkalemia -Resolved Bilateral lower extremity diabetic foot wounds -Following outpatient with podiatry -Wound care consultation -had a left great toe amputation and her left second toe appears to be gangrenous, she says that she is following up with podiatry as an outpatient and will likely need an amputation.? She does not have a white count and is afebrile -Continue home fluconazole DM-2 -Continue long-acting insulin -Continue Accu-Cheks as ordered -Continue sliding scale -Most recent hemoglobin A1c was 7.5 from 12/16/2021 and appears to be consistently stable MIKE on CKD stage II -Baseline serum creatinine appears to run between 0.9 and 1.2 -Serum creatinine 2. 3 4 on admission -Down to 1.69 with diuresis -Continue diuresis -Repeat BMP in a.m. -Suspect patient likely has diabetic nephropathy at baseline Chronic normocytic anemia -Hemoglobin is stable at 7.4 -No signs of acute blood loss next-continue to monitor Chronic thrombocytopenia -Counts are stable -Continue to monitor Diabetic neuropathy -Continue home gabapentin Hypertension/hyperlipidemia/CAD status post stents -Patient was statin allergy -Continue home aspirin -Continue metoprolol 50 mg daily Hypothyroidism -Continue home Synthroid -Most recent TSH from 12/16/2021 was 3.17 and overall relatively stable Morbid obesity -BMI 40.2 -Recommend weight loss -Complicates treatment, prognosis, outcomes Debility -PT/OT consultation DVT prophylaxis -Continue enoxaparin CODE STATUS -CODE STATUS was not obtained at admission -Has been DNR [facility] in the past -We will further discuss with patient in the morning Charges/Coding Visit Charges Inpatient E&M: 63249 Subs Hosp L2
[2022-02-20 17:00] LABS: Bedside Glucose 119 mg/dL (74-106)
[2022-02-20] MEDS: Montelukast 10 MG Tablet PO (21:41)
[2022-02-20 23:20] LABS: Bedside Glucose 116 mg/dL (74-106)
[2022-02-21] VITALS (13 sets, daily range): BP systolic 107–153; BP diastolic 55–94; PULSE 74–109; RESP 14–18; TEMP 35.9–37.2; O2SAT 92–100
[2022-02-21 05:35] LABS: Bedside Glucose 117 mg/dL (74-106)
[2022-02-21] MEDS: Levothyroxine 100 MCG Tablet PO (06:55)
[2022-02-21] MEDS: Nystatin Powder 15gm Bottle 1 APPLIC TOPICAL ×3 (06:55→21:29)
[2022-02-21] MEDS: Furosemide 40 MG/4 ML Vial IV ×2 (06:55→13:51)
[2022-02-21] MEDS: 0.9% Saline Lock 10 ML Syringe IV ×2 (06:59→21:40)
[2022-02-21 07:03] LABS: Absolute Lymphocyte Count 0.81 X10^3/uL (0.83-4.51); Absolute Neutrophil Count 6.8 X10^3/uL (2.0-7.7); Basophil# 0.05 X10^3/uL; Basophil% 0.6 % (0-1); Eosinophil# 0.14 X10^3/uL; Eosinophils% 1.6 % (0-5); Hematocrit 27.2 % (37-47); Hemoglobin 7.9 g/dL (12.0-15.0); Lymphocyte # 0.81 X10^3/ul (0.83-4.51); Lymphocyte % 9.5 % (19-41); Mean Corpuscular Hgb 27.5 pg (27.0-32.0); Mean Corpuscular Volume 94.8 fL (81-99); Mean Platelet Vol. 10.4 fl (6.2-12.0); Monocyte# 0.67 X10^3/uL; Monocyte% 7.9 % (0-10); NRBC Flagged by Analyzer 0 % (0-5); Neutrophil # 6.82 X10^3/uL (2.7-7.7); Platelet Count 137 K/mm3 (150-450); RBC Distribution Width CV 18.8 % (11.6-14.6); RBC Distribution Width SD 64.8 fl (35.1-43.9); Red Blood Count 2.87 M/mm3 (4.2-5.4); White Blood Count 8.5 K/mm3 (4.4-11.0)
[2022-02-21 07:26] LABS: Bedside Glucose 122 mg/dL (74-106)
[2022-02-21 07:39] LABS: Anion Gap 2 (5-15); BUN 62 mg/dL (7-18); BUN/Creat Ratio 38.5 RATIO (10-20); Calcium,Total 9.3 mg/dL (8.5-10.1); Chloride 103 mmol/L (98-107); Creatinine, Serum 1.61 mg/dL (0.55-1.02); EST Glomerular Filtration Rate 34 mL/min (>60); Est Glom Filt Rate - Afr Amer 41 mL/min (>60); Estimated Creatinine Clearance 32.61 ml/min; Glucose 126 mg/dL (74-106); Phosphorus 2.8 mg/dL (2.5-4.9); Potassium 4.5 mmol/L (3.5-5.1); Sodium Level 142 mmol/L (136-145)
--- NOTE | 2022-02-21 10:09 | CASEMGMT ---
Discharge Desk Assistant This automotive service writer sent updates to Andra via [facility] [place]
[2022-02-21] MEDS: Aspirin E.C. 81 MG Tablet PO (10:47)
[2022-02-21] MEDS: Menthol/Lanolin/Calamine/Znox 113 GM Tube 1 APPLIC TOPICAL ×2 (10:47→21:29)
[2022-02-21] MEDS: Juven (unflavored) Packet 1 PACKET PO ×2 (10:47→18:35)
[2022-02-21] MEDS: Gabapentin 100 MG Capsule 200 MG PO ×3 (10:47→18:35)
[2022-02-21] MEDS: Paroxetine 20 MG Tablet PO (10:48)
[2022-02-21] MEDS: Acetaminophen 325 MG Tablet 650 MG PO ×2 (10:48→21:44)
[2022-02-21] MEDS: Fluconazole 100 MG Tablet 200 MG PO (10:48)
[2022-02-21] MEDS: Metoprolol(XL)Succ 25 MG Tablet 12.5 MG PO (10:48)
[2022-02-21] MEDS: Enoxaparin 30 MG/0.3 ML Syringe SC (10:48)
[2022-02-21] MEDS: Pantoprazole Sodium 40 MG Tablet PO ×2 (10:48→21:30)
[2022-02-21] MEDS: Senna/Docusate Sodium 1 Tablet PO ×2 (10:48→21:30)
--- NOTE | 2022-02-21 11:31 | WOUNDNOTE ---
wound photo: left foot
--- NOTE | 2022-02-21 11:32 | WOUNDNOTE ---
wound photo: left foot
--- NOTE | 2022-02-21 11:32 | WOUNDNOTE ---
wound photo: left heel
--- NOTE | 2022-02-21 11:34 | WOUNDNOTE ---
wound photo: right heel
--- NOTE | 2022-02-21 12:45 | CASEMGMT ---
Addendum entered by Clare Kaufman 02/21/22 12:57: SW looked at patient's admission sheet from [facility] and it does not look like patient has been there for 90 days yet. SW will check with patient to see if her plan is to stay at [facility] or if she plans on returning to [facility]. Clare DASILVA Original Note: SW met with patient. Introduced self and role at [facility]. SW asked patient if her plan is to return to [facility] at discharge. Patient said that is her plan. Patient did have a question about her money. SW asked if she has been at [facility] for 90 days and she said she has. SW explained that the facility would get her Social Security check and she would get $50 a month. Patient said she has never been given $50. SW told her SW will check on this and let her know. Clare DASILVA
[2022-02-21] MEDS: Insulin Lispro 100 UNIT/ML INSULN.PEN SC ×3 (13:49→21:27)
[2022-02-21] MEDS: Ferrous Sulfate 325 MG Tablet PO (13:50)
--- NOTE | 2022-02-21 15:39 | PCM.PN.HOSP ---
Subjective Subjective Patient states she is clinically improving. Currently on 2 L nasal cannula. Down 4.9 L for her hospitalization. Diuresing well. Still fairly weak. Will need pre-CERT prior to going back to the detention. Objective Data Objective Data Vital Signs: Vital Signs Temp Pulse Resp BP Pulse Ox O2 Del Method O2 Flow Rate 98.6 F 102 H 16 153/70 H 95 Nasal Cannula 4 02/21/22 13:42 02/21/22 13:42 02/21/22 13:42 02/21/22 13:42 02/21/22 13:42 02/21/22 13:55 02/21/22 13:55 FiO2 98 02/17/22 20:00 Oxygen Flow Rate (L/min) 4 Oxygen Delivery Method Nasal Cannula Weight: 112.945 kg Body Mass Index (BMI) 40.1 Intake & Output: Intake and Output for Last 24 Hours 02/19/22 02/20/22 02/21/22 23:59 23:59 23:59 Intake Total 120 / 320 1180 / 1180 Output Total 1600 / 1600 1150 / 2000 2450 / 2450 Balance -1600 / -1600 -1030 / -1680 -1270 / -1270 Lab / Micro Data Result Diagrams: 02/21/22 Unknown 02/21/22 Unknown Labs: Laboratory Results - last 24 hr 02/20/22 16:26: POC Glucose 119 H 02/20/22 21:48: POC Glucose 116 H 02/21/22 04:50: POC Glucose 117 H 02/21/22 06:57: POC Glucose 122 H 02/21/22 : WBC 8.5, RBC 2.87 L, Hgb 7.9 L, Hct 27.2 L, MCV 94.8, MCH 27.5, MCHC 29.0 L, RDW Std Deviation 64.8 H, RDW Coeff of Magen 18.8 H, Plt Count 137 L, MPV 10.4, Immature Gran % (Auto) 0.400, Neut % (Auto) 80.0 H, Lymph % (Auto) 9.5 L, [place] % (Auto) 7.9, Eos % (Auto) 1.6, Baso % (Auto) 0.6, Absolute Neuts (auto) 6.8, Absolute Lymphs (auto) 0.81 L, Nucleated RBC % 0 02/21/22 : Sodium 142, Potassium 4.5, Chloride 103, Carbon Dioxide 37.0 H, Anion Gap 2 L, BUN 62 H, Creatinine 1.61 H, Estim Creat Clear Calc 32.61, Est GFR (MDRD) Af Amer 41 L, Est GFR (MDRD) Non-Af 34 L, BUN/Creatinine Ratio 38.5 H, Glucose 126 H, Calcium 9.3, Phosphorus 2.8, Magnesium 2.0 Micro: Microbiology 02/17/22 02:09 Nasal Secretion SARS-CoV-2 & FLU Antigen (Rapid) - Final Physical Exam Const alert, oriented x3 and no apparent distress Constitutional Narrative: Morbidly obese, very debilitated appearing, upper middle-aged white female sitting up in bed on oxygen, appears older than stated age, appears chronically ill but no acute signs of illness, nontoxic, appears comfortable at this time HEENT head/scalp atraumatic and moist oral mucous membranes Resp normal respiratory effort, no retractions, no use of accessory muscles and clear to auscultation bilaterally Resp Narrative: Diffusely diminished but fairly clear Auscultation: Negative for crackles, rhonchi or wheezes Cardio regular rate, regular rhythm, S1 normal heart sound, S2 normal heart sound, no murmurs, no rub, no gallops and no clicks GI normal to inspection, nondistended, normoactive bowel sounds, soft to palpation and non-tender Extremity Extremity Narrative: 1+ pitting edema bilateral lower extremities,, 1+ pitting edema in the upper extremities/hands no cyanosis or clubbing Skin Skin Narrative: Bilateral lower extremity diabetic foot wounds noted, dry gangrene noted of the left hallux with no acute erythema or drainage Neuro oriented x3, moves all extremities and no focal motor deficits Neuro Narrative: Bilateral lower extremity neuropathy, generalized weakness Speech: speech normal Psych Psych Narrative: Improved affect today, eye contact is good and patient is appropriately interactive Assessment & Plan Assessment/Plan (1) Acute respiratory failure with hypoxia and hypercapnia: (2) CHF (congestive heart failure): (3) MIKE (acute kidney injury): (4) Dry gangrene: (5) Multiple wounds: (6) Morbid obesity: PLAN: Plan Acute on chronic hypoxic and hypercapnic respiratory failure secondary to decompensated HFpEF/severe pulmonary artery hypertension -Currently on 2 L nasal cannula -Echo from 10/17/2021 shows an EF of 55%/mild left atrial enlargement, moderate mitral and tricuspid valve insufficiency, and a right ventricular systolic pressure of 55 mmHg with indeterminate diastolic function -Negative almost 5 L for hospitalization -Continue IV diuresis but transition from Lasix to Bumex with hypoalbuminemia -Serum creatinine continues to improve with diuresis so I suspect this is cardiorenal in nature -Repeat lab in a.m. -Strict I's and O's -Sodium restricted diet -Continue fluid restriction of 1750 cc--> patient indicates her fluid intake at the nursing facility has been very liberal Bilateral lower extremity diabetic foot wounds -Following outpatient with podiatry -Wound care following -had a left great toe amputation and her left second toe appears to be gangrenous, she says that she is following up with podiatry as an outpatient and will likely need an amputation.? -She does not have a white count and is afebrile no acute etiology at this time -Continue home fluconazole DM-2 -Continue long-acting insulin -Continue Accu-Cheks as ordered -Continue sliding scale -Most recent hemoglobin A1c was 7.5 from 12/16/2021 and appears to be consistently stable MIKE on CKD stage II -Baseline serum creatinine appears to run between 0.9 and 1.2 -Serum creatinine 2. 3 4 on admission -Down to 1.61 despite diuresis -Continue diuresis -Repeat BMP in a.m. -Suspect patient likely has diabetic nephropathy at baseline Chronic normocytic anemia -Hemoglobin is stable-7.9 today -No signs of acute blood loss next-continue to monitor Chronic thrombocytopenia -Counts are stable -Continue to monitor Diabetic neuropathy -Continue home gabapentin Hypertension/hyperlipidemia/CAD status post stents -Patient was statin allergy -Continue home aspirin -Continue metoprolol 50 mg daily Hypothyroidism -Continue home Synthroid -Most recent TSH from 12/16/2021 was 3.17 and overall relatively stable Morbid obesity -BMI 40.2 -Recommend weight loss -Complicates treatment, prognosis, outcomes Debility -PT/OT consultation DVT prophylaxis -Continue enoxaparin CODE STATUS -CODE STATUS was not obtained at admission -Has been DNR [facility] in the past -We will further discuss with patient in the morning Charges/Coding Visit Charges Inpatient E&M: 38879 Subs Hosp L2
--- NOTE | 2022-02-21 15:50 | RAD_ITS ---
INDICATION: chf EXAMINATION/TECHNIQUE: X-RAY - XR Chest 1 View COMPARISON: 02/17/2022 FINDINGS: LINES/DEVICES: None. LUNGS: Similar bilateral lung infiltrates. Small right pleural effusion. MEDIASTINUM AND CARDIOVASCULAR STRUCTURES: Cardiac silhouette not enlarged. Central pulmonary vascular enlargement. Central airways and mediastinal contour are unremarkable. BONES AND SOFT TISSUES: Unremarkable. RAD/Chest 1 View (Portable) IMPRESSION: Interval development of small right pleural effusion. CHF with similar bilateral pulmonary infiltrates. Electronically Signed: Froy Rousseau MD at 16:06 EST ,
[2022-02-21 20:21] LABS: Bedside Glucose 195 mg/dL (74-106)
[2022-02-21 20:21] LABS: Bedside Glucose 193 mg/dL (74-106)
[2022-02-21] MEDS: Insulin Glargine-YFGN 100 UNIT/ML Pen 35 UNIT SC (21:25)
[2022-02-21] MEDS: Montelukast 10 MG Tablet PO (21:31)
[2022-02-21] MEDS: Bumetanide 1 MG/4 ML Vial 2 MG IV (21:35)
[2022-02-21 23:25] LABS: Bedside Glucose 206 mg/dL (74-106)
[2022-02-22] VITALS (13 sets, daily range): BP systolic 128–150; BP diastolic 60–73; PULSE 77–93; RESP 14–18; TEMP 36.2–37.1; O2SAT 93–99
[2022-02-22] MEDS: Levothyroxine 100 MCG Tablet PO (06:46)
[2022-02-22] MEDS: Nystatin Powder 15gm Bottle 1 APPLIC TOPICAL ×3 (06:48→22:13)
[2022-02-22] MEDS: Bumetanide 1 MG/4 ML Vial 2 MG IV ×3 (06:51→22:12)
[2022-02-22 07:15] LABS: Bedside Glucose 144 mg/dL (74-106)
[2022-02-22 08:30] LABS: Absolute Lymphocyte Count 0.74 X10^3/uL (0.83-4.51); Absolute Neutrophil Count 5.5 X10^3/uL (2.0-7.7); Basophil# 0.04 X10^3/uL; Basophil% 0.6 % (0-1); Eosinophil# 0.13 X10^3/uL; Eosinophils% 1.8 % (0-5); Hematocrit 27.9 % (37-47); Lymphocyte # 0.74 X10^3/ul (0.83-4.51); Lymphocyte % 10.5 % (19-41); Mean Corp Hgb Conc 28.7 g/dL (32-36); Mean Corpuscular Hgb 27.3 pg (27.0-32.0); Mean Corpuscular Volume 95.2 fL (81-99); Mean Platelet Vol. 10.5 fl (6.2-12.0); Monocyte# 0.63 X10^3/uL; Monocyte% 8.9 % (0-10); NRBC Flagged by Analyzer 0 % (0-5); Neutrophil % 77.9 % (47-70); Platelet Count 143 K/mm3 (150-450); RBC Distribution Width CV 18.8 % (11.6-14.6); RBC Distribution Width SD 64.9 fl (35.1-43.9); Red Blood Count 2.93 M/mm3 (4.2-5.4); White Blood Count 7.1 K/mm3 (4.4-11.0)
[2022-02-22] MEDS: Gabapentin 100 MG Capsule 200 MG PO ×3 (08:43→16:20)
[2022-02-22] MEDS: Enoxaparin 40 MG/0.4 ML Syringe SC (08:43)
[2022-02-22] MEDS: Polyethylene Glycol 3350 17 GM PACKET PO (08:44)
[2022-02-22] MEDS: Juven (unflavored) Packet 1 PACKET PO ×2 (08:44→16:20)
[2022-02-22] MEDS: Paroxetine 20 MG Tablet PO (08:45)
[2022-02-22] MEDS: Fluconazole 100 MG Tablet 200 MG PO (08:45)
[2022-02-22] MEDS: Pantoprazole Sodium 40 MG Tablet PO ×2 (08:45→22:13)
[2022-02-22] MEDS: Aspirin E.C. 81 MG Tablet PO (08:45)
[2022-02-22] MEDS: Senna/Docusate Sodium 1 Tablet PO ×2 (08:46→22:13)
[2022-02-22] MEDS: Metoprolol(XL)Succ 25 MG Tablet 12.5 MG PO (08:46)
[2022-02-22] MEDS: Menthol/Lanolin/Calamine/Znox 113 GM Tube 1 APPLIC TOPICAL ×2 (08:54→22:14)
[2022-02-22 08:58] LABS: Anion Gap 2 (5-15); BUN 55 mg/dL (7-18); BUN/Creat Ratio 37.2 RATIO (10-20); Calcium,Total 9.6 mg/dL (8.5-10.1); Chloride 102 mmol/L (98-107); Creatinine, Serum 1.48 mg/dL (0.55-1.02); EST Glomerular Filtration Rate 38 mL/min (>60); Est Glom Filt Rate - Afr Amer 45 mL/min (>60); Estimated Creatinine Clearance 35.48 ml/min; Glucose 152 mg/dL (74-106); Potassium 4.2 mmol/L (3.5-5.1); Sodium Level 144 mmol/L (136-145)
--- NOTE | 2022-02-22 10:28 | NURSING ---
Emergency Documentation effective @ 02/22 @ 0800.
[2022-02-22] MEDS: Acetaminophen 325 MG Tablet 650 MG PO ×2 (11:13→20:25)
[2022-02-22] MEDS: Insulin Lispro 100 UNIT/ML INSULN.PEN SC ×3 (11:15→22:15)
[2022-02-22] MEDS: Ferrous Sulfate 325 MG Tablet PO (11:15)
[2022-02-22 11:55] LABS: Bedside Glucose 203 mg/dL (74-106)
--- NOTE | 2022-02-22 13:49 | CASEMGMT ---
Discharge Receiver Stocker This selling underwriter sent PT/OT to Andra via [facility]. This selling underwriter asked Andra to please start pre-cert. Ruben [employer] Tool [employer]
--- NOTE | 2022-02-22 16:56 | PN.HOSP_ITS ---
Subjective Subjective Patient does report continued improvement. Remains on baseline oxygen. Still edematous however seems to be slowly reducing. Renal function is stable. Patient is complaining of some foot pain but was just given Tylenol. No other complaints at this time. Plan is for discharge back to [facility] once pre-CERT is obtained. Objective Data Objective Data Vital Signs: Vital Signs Temp Pulse Resp BP Pulse Ox O2 Del Method O2 Flow Rate 97.5 F L 89 18 145/73 H 96 Nasal Cannula 4 02/22/22 13:54 02/22/22 14:57 02/22/22 13:54 02/22/22 13:54 02/22/22 13:54 02/22/22 14:00 02/22/22 14:00 FiO2 98 02/17/22 20:00 Oxygen Flow Rate (L/min) 4 Oxygen Delivery Method Nasal Cannula Weight: 112.945 kg Body Mass Index (BMI) 40.1 Intake & Output: Intake and Output for Last 24 Hours 02/20/22 02/21/22 02/22/22 23:59 23:59 23:59 Intake Total 120 / 320 1420 / 1540 320 / 320 Output Total 1150 / 2000 2450 / 2450 400 / 400 Balance -1030 / -1680 -1030 / -910 -80 / -80 Lab / Micro Data Result Diagrams: 02/22/22 08:00 02/22/22 08:00 Labs: Laboratory Results - last 24 hr 02/21/22 13:48: POC Glucose 195 H 02/21/22 18:29: POC Glucose 193 H 02/21/22 21:25: POC Glucose 206 H 02/22/22 06:45: POC Glucose 144 H 02/22/22 08:00: WBC 7.1, RBC 2.93 L, Hgb 8.0 L, Hct 27.9 L, MCV 95.2, MCH 27.3, MCHC 28.7 L, RDW Std Deviation 64.9 H, RDW Coeff of Magen 18.8 H, Plt Count 143 L, MPV 10.5, Immature Gran % (Auto) 0.300, Neut % (Auto) 77.9 H, Lymph % (Auto) 10.5 L, Forrest % (Auto) 8.9, Eos % (Auto) 1.8, Baso % (Auto) 0.6, Absolute Neuts (auto) 5.5, Absolute Lymphs (auto) 0.74 L, Nucleated RBC % 0 02/22/22 08:00: Sodium 144, Potassium 4.2, Chloride 102, Carbon Dioxide 40.0 H, Anion Gap 2 L, BUN 55 H, Creatinine 1.48 H, Estim Creat Clear Calc 35.48, Est GFR (MDRD) Af Amer 45 L, Est GFR (MDRD) Non-Af 38 L, BUN/Creatinine Ratio 37.2 H , Glucose 152 H, Calcium 9.6 02/22/22 08:00: Magnesium 2.0 02/22/22 11:11: POC Glucose 203 H Micro: Microbiology 02/17/22 02:09 Nasal Secretion SARS-CoV-2 & FLU Antigen (Rapid) - Final Physical Exam Const alert and oriented x3 Constitutional Narrative: Upper middle-aged white female sitting up in bed, appears comfortable, nontoxic, currently on 2 L nasal cannula, appears much older than stated age, appears to have significant debility for age HEENT head/scalp atraumatic and moist oral mucous membranes HEENT Narrative: Edentulous Head and Scalp: normocephalic Resp normal respiratory effort, no retractions and no use of accessory muscles Resp Narrative: Diminished at bases bilaterally with few scattered crackles at bases but otherwise unremarkable Auscultation: crackles; Negative for rhonchi or wheezes Cardio regular rate, regular rhythm, S1 normal heart sound, S2 normal heart sound, no rub, no gallops and no clicks Cardio Narrative: 2 out of 6 systolic murmur loudest at right upper sternal border GI normal to inspection, nondistended, normoactive bowel sounds, soft to palpation and non-tender 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 Extremity Extremity Narrative: Anasarca with slow improvement, legs and hands are starting to improve Neuro oriented x3, moves all extremities and no focal motor deficits Speech: speech normal Psych affect normal Assessment & Plan Assessment/Plan (1) Acute respiratory failure with hypoxia and hypercapnia: (2) CHF (congestive heart failure): (3) MIKE (acute kidney injury): (4) Dry gangrene: (5) Multiple wounds: (6) Morbid obesity: PLAN: Plan Acute on chronic hypoxic and hypercapnic respiratory failure secondary to decompensated HFpEF/severe pulmonary artery hypertension -Currently on 2-3 L nasal cannula -Echo from 10/17/2021 shows an EF of 55%/mild left atrial enlargement, moderate mitral and tricuspid valve insufficiency, and a right ventricular systolic pressure of 55 mmHg with indeterminate diastolic function -Remains reported approximately 5 L negative however patient has been incontinent -Continue Bumex as ordered -Strict I's and O's -Sodium restricted diet -Daily weights -Continue fluid restriction of 1750 cc--> patient indicates her fluid intake at the nursing facility has been very liberal Bilateral lower extremity diabetic foot wounds -Following outpatient with podiatry -Wound care following -had a left great toe amputation and her left second toe appears to be gangrenous, she says that she is following up with podiatry as an outpatient and will likely need an amputation.? -She does not have a white count and is afebrile no acute etiology at this time -Continue home fluconazole DM-2 -Continue long-acting insulin -Continue Accu-Cheks as ordered -Blood sugars are overall well controlled with fasting this morning 152 -Continue sliding scale -Most recent hemoglobin A1c was 7.5 from 12/16/2021 and appears to be consistently stable MIKE on CKD stage II -Baseline serum creatinine appears to run between 0.9 and 1.2 -Serum creatinine 2.34 on admission -Down to 1.48 despite diuresis -Continue diuresis with Bumex -Repeat BMP in a.m. -Suspect patient likely has diabetic nephropathy at baseline Chronic normocytic anemia -Hemoglobin is stable-8.0 today -No signs of acute blood loss next-continue to monitor Chronic thrombocytopenia -Counts are stable -Continue to monitor Diabetic neuropathy -Continue home gabapentin Hypertension/hyperlipidemia/CAD status post stents -Patient was statin allergy -Continue home aspirin -Continue metoprolol 50 mg daily Hypothyroidism -Continue home Synthroid -Most recent TSH from 12/16/2021 was 3.17 and overall relatively stable Morbid obesity -BMI 40.2 -Recommend weight loss -Complicates treatment, prognosis, outcomes Debility -PT/OT following DVT prophylaxis -Continue enoxaparin Charges/Coding Visit Charges Inpatient E&M: 61573 Subs Hosp L2
[2022-02-22 17:00] LABS: Bedside Glucose 167 mg/dL (74-106)
[2022-02-22] MEDS: Montelukast 10 MG Tablet PO (22:13)
[2022-02-22] MEDS: Insulin Glargine-YFGN 100 UNIT/ML Pen 35 UNIT SC (22:15)
[2022-02-22] MEDS: 0.9% Saline Lock 10 ML Syringe IV (22:25)
[2022-02-22 23:15] LABS: Bedside Glucose 191 mg/dL (74-106)
[2022-02-23] VITALS (17 sets, daily range): BP systolic 127–150; BP diastolic 59–93; PULSE 86–160; RESP 16–18; TEMP 36.5–36.6; O2SAT 94–100
[2022-02-23] MEDS: 0.9% Saline Lock 10 ML Syringe IV ×6 (05:47→22:19)
[2022-02-23] MEDS: Nystatin Powder 15gm Bottle 1 APPLIC TOPICAL ×3 (05:47→22:05)
[2022-02-23] MEDS: Bumetanide 1 MG/4 ML Vial 2 MG IV ×3 (05:48→22:01)
[2022-02-23] MEDS: Levothyroxine 100 MCG Tablet PO (05:49)
[2022-02-23] MEDS: Acetaminophen 325 MG Tablet 650 MG PO (06:45)
[2022-02-23] MEDS: Dextrose 50%-Water 25 GM/50 ML DISP.SYRIN IV (06:45)
[2022-02-23 07:25] LABS: Bedside Glucose 69 mg/dL (74-106)
[2022-02-23 07:25] LABS: Bedside Glucose 133 mg/dL (74-106)
[2022-02-23 07:43] LABS: Anion Gap 1 (5-15); BUN 51 mg/dL (7-18); BUN/Creat Ratio 41.5 RATIO (10-20); Calcium,Total 9.2 mg/dL (8.5-10.1); Chloride 100 mmol/L (98-107); Creatinine, Serum 1.23 mg/dL (0.55-1.02); EST Glomerular Filtration Rate 46 mL/min (>60); Est Glom Filt Rate - Afr Amer 56 mL/min (>60); Estimated Creatinine Clearance 42.12 ml/min; Glucose 76 mg/dL (74-106); Magnesium 1.6 mg/dL (1.6-2.6); Potassium 3.7 mmol/L (3.5-5.1); Sodium Level 143 mmol/L (136-145)
[2022-02-23] MEDS: Fluconazole 100 MG Tablet 200 MG PO (08:28)
[2022-02-23] MEDS: Senna/Docusate Sodium 1 Tablet PO ×2 (08:28→22:01)
[2022-02-23] MEDS: Pantoprazole Sodium 40 MG Tablet PO ×2 (08:28→22:01)
[2022-02-23] MEDS: Gabapentin 100 MG Capsule 200 MG PO ×3 (08:29→16:25)
[2022-02-23] MEDS: Metoprolol(XL)Succ 25 MG Tablet 12.5 MG PO (08:29)
[2022-02-23] MEDS: Enoxaparin 40 MG/0.4 ML Syringe SC (08:29)
[2022-02-23] MEDS: Paroxetine 20 MG Tablet PO (08:29)
[2022-02-23] MEDS: Aspirin E.C. 81 MG Tablet PO (08:29)
[2022-02-23] MEDS: Polyethylene Glycol 3350 17 GM PACKET PO (08:29)
[2022-02-23] MEDS: Menthol/Lanolin/Calamine/Znox 113 GM Tube 1 APPLIC TOPICAL ×2 (08:30→22:04)
[2022-02-23] MEDS: Juven (unflavored) Packet 1 PACKET PO ×2 (08:30→16:35)
[2022-02-23] MEDS: Ferrous Sulfate 325 MG Tablet PO (11:39)
[2022-02-23 11:55] LABS: Bedside Glucose 134 mg/dL (74-106)
[2022-02-23] MEDS: traMADol 50 MG Tablet PO ×2 (16:25→23:17)
[2022-02-23 16:35] LABS: Bedside Glucose 98 mg/dL (74-106)
--- NOTE | 2022-02-23 16:52 | PN.HOSP_ITS ---
Subjective Subjective Is complaining of some left foot pain which is chronic for her. They have just given her some Tylenol. She also reports that she is having difficulty sleeping is wondering if her trazodone could be reinitiated. She would also like something else to supplement her trazodone as she states it does not work well alone. She is overall feeling better and feels like her swelling has improved. Objective Data Objective Data Vital Signs: Vital Signs Temp Pulse Resp BP Pulse Ox O2 Del Method O2 Flow Rate 97.7 F L 101 H 18 148/73 H 95 Nasal Cannula 3 02/23/22 15:05 02/23/22 15:05 02/23/22 15:05 02/23/22 15:05 02/23/22 15:05 02/23/22 15:05 02/23/22 15:05 FiO2 98 02/17/22 20:00 Oxygen Flow Rate (L/min) 3 Oxygen Delivery Method Nasal Cannula Weight: 102 kg Body Mass Index (BMI) 40.1 Intake & Output: Intake and Output for Last 24 Hours 02/21/22 02/22/22 02/23/22 23:59 23:59 23:59 Intake Total 1420 / 1540 420 / 420 400 / 400 Output Total 2450 / 2450 900 / 900 1600 / 1600 Balance -1030 / -910 -480 / -480 -1200 / -1200 Lab / Micro Data Result Diagrams: 02/22/22 08:00 02/23/22 06:00 Labs: Laboratory Results - last 24 hr 02/22/22 16:11: POC Glucose 167 H 02/22/22 22:11: POC Glucose 191 H 02/23/22 06:00: Sodium 143, Potassium 3.7, Chloride 100, Carbon Dioxide 42.0 H, Anion Gap 1 L, BUN 51 H, Creatinine 1.23 H, Estim Creat Clear Calc 42.12, Est GFR (MDRD) Af Amer 56 L, Est GFR (MDRD) Non-Af 46 L, BUN/Creatinine Ratio 41.5 H , Glucose 76, Calcium 9.2, Magnesium 1.6 02/23/22 06:32: POC Glucose 69 L 02/23/22 07:04: POC Glucose 133 H 02/23/22 10:53: POC Glucose 134 H 02/23/22 15:53: POC Glucose 98 Micro: Microbiology 02/17/22 02:09 Nasal Secretion SARS-CoV-2 & FLU Antigen (Rapid) - Final Physical Exam Const alert and oriented x3 Constitutional Narrative: Upper middle-aged white female sitting up in bed, appears comfortable, nontoxic, currently on 3 L nasal cannula, appears much older than stated age, appears to have significant debility for age HEENT head/scalp atraumatic and moist oral mucous membranes HEENT Narrative: Dentition is poor, Mallampati is 3 Head and Scalp: normocephalic Resp normal respiratory effort, no retractions, no use of accessory muscles and clear to auscultation bilaterally Resp Narrative: Diminished diffusely but clear, crackles have resolved Auscultation: Negative for crackles, rhonchi or wheezes Cardio regular rate, regular rhythm, S1 normal heart sound, S2 normal heart sound, no rub, no gallops and no clicks Cardio Narrative: 2 out of 6 systolic murmur loudest at right upper sternal border GI normal to inspection, nondistended, normoactive bowel sounds, soft to palpation and non-tender 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 Extremity Extremity Narrative: Anasarca with slow improvement, legs and hands are starting to improve but still with 2+ pitting edema, no cyanosis or clubbing, cap refill in hands is 2+ 1+ in bilateral feet Neuro oriented x3, moves all extremities and no focal motor deficits Speech: speech normal Psych affect normal Psych Narrative: Pleasant and appropriate seems less tired today Assessment & Plan Assessment/Plan (1) Acute respiratory failure with hypoxia and hypercapnia: (2) CHF (congestive heart failure): (3) MIKE (acute kidney injury): (4) Dry gangrene: (5) Multiple wounds: (6) Morbid obesity: PLAN: Plan Acute on chronic hypoxic and hypercapnic respiratory failure secondary to decompensated HFpEF/severe pulmonary artery hypertension -Currently on 2-3 L nasal cannula -Echo from 10/17/2021 shows an EF of 55%/mild left atrial enlargement, moderate mitral and tricuspid valve insufficiency, and a right ventricular systolic pressure of 55 mmHg with indeterminate diastolic function -Remains reported approximately 5 L negative however patient has been incontinent -Continue Bumex as ordered -Down 10 kg for the admission -Negative at least 6-1/2 L with some episodes of incontinence -Strict I's and O's -Sodium restricted diet -Daily weights -Continue fluid restriction of 1750 cc--> patient indicates her fluid intake at the nursing facility has been very liberal Bilateral lower extremity diabetic foot wounds -Following outpatient with podiatry -Wound care following -had a left great toe amputation and her left second toe appears to be gangrenous, she says that she is following up with podiatry as an outpatient and will likely need an amputation.? -She does not have a white count and is afebrile no acute etiology at this time -Continue home fluconazole DM-2 -Continue long-acting insulin -Continue Accu-Cheks as ordered -Blood sugars are overall well controlled with fasting this morning 152 -Continue sliding scale -Most recent hemoglobin A1c was 7.5 from 12/16/2021 and appears to be consistently stable MIKE on CKD stage II -Baseline serum creatinine appears to run between 0.9 and 1.2 -It appears that the reason for her creatinine elevation on admission was cardiorenal syndrome as her creatinine continues to improve with aggressive diuresis -Serum creatinine 2.34 on admission -Down to 1.23 despite diuresis -Continue diuresis with Bumex -Repeat BMP in a.m. -Suspect patient likely has diabetic nephropathy at baseline Chronic normocytic anemia -Hemoglobin has been stable -No signs of acute blood loss -continue to monitor periodically Chronic thrombocytopenia -Counts are stable -Continue to monitor Diabetic neuropathy -Continue home gabapentin -As needed Tylenol -As needed Ultram Hypertension/hyperlipidemia/CAD status post stents -Patient was statin allergy -Continue home aspirin -Continue metoprolol 50 mg daily Hypothyroidism -Continue home Synthroid -Most recent TSH from 12/16/2021 was 3.17 and overall relatively stable Morbid obesity -BMI 40.2 -Recommend weight loss -Complicates treatment, prognosis, outcomes Insomnia -Restart home trazodone -Start melatonin 10 mg at at bedtime Debility -PT/OT following DVT prophylaxis -Continue enoxaparin Dispo: -Patient is stable to discharge awaiting pre-CERT to go back to the nursing facility -We will transition to Bumex orally 3 times daily at the time of discharge with close follow-up on her renal function Charges/Coding Visit Charges Inpatient E&M: 32451 Subs Hosp L2
--- NOTE | 2022-02-23 17:20 | EKG12_ITS ---
Test Reason : Blood Pressure : / mmHG Vent. Rate : 159 BPM Atrial Rate : 163 BPM P-R Int : 000 ms QRS Dur : 066 ms QT Int : 272 ms P-R-T Axes : 000 122 099 degrees QTc Int : 442 ms Undetermined rhythm : Consider Atrial Fibrillation with RVR Right axis deviation Septal infarct , age undetermined Abnormal ECG Confirmed by HENRIETTA ROSS, [place] ([id number]), communications editor JASON PEREIRA ([id number]) on 03/02/2022 10:13:01 AM Referred By: Confirmed By:[place] SHRESTHA MD
[2022-02-23] MEDS: Metoprolol Tartrate 5 MG/5 ML Vial IV (17:45)
[2022-02-23] MEDS: Montelukast 10 MG Tablet PO (22:01)
[2022-02-23] MEDS: Insulin Glargine-YFGN 100 UNIT/ML Pen 35 UNIT SC (22:01)
[2022-02-23] MEDS: traZODone 100 MG Tablet 150 MG PO (22:03)
[2022-02-23] MEDS: MELATONIN 10 MG TABLET PO (22:05)
[2022-02-24] VITALS (9 sets, daily range): BP systolic 116–150; BP diastolic 55–65; PULSE 72–101; RESP 16–18; TEMP 36.5–36.6; O2SAT 93–100
[2022-02-24 01:10] LABS: Bedside Glucose 127 mg/dL (74-106)
[2022-02-24] MEDS: Nystatin Powder 15gm Bottle 1 APPLIC TOPICAL (05:13)
[2022-02-24] MEDS: Levothyroxine 100 MCG Tablet PO (05:13)
[2022-02-24] MEDS: 0.9% Saline Lock 10 ML Syringe IV (05:13)
[2022-02-24] MEDS: Bumetanide 1 MG/4 ML Vial 2 MG IV (05:13)
[2022-02-24] MEDS: Dextrose 50%-Water 25 GM/50 ML DISP.SYRIN IV (07:02)
[2022-02-24 07:10] LABS: Absolute Neutrophil Count 6.1 X10^3/uL (2.0-7.7); Basophil# 0.04 X10^3/uL; Basophil% 0.5 % (0-1); Eosinophil# 0.13 X10^3/uL; Eosinophils% 1.6 % (0-5); Hematocrit 29.7 % (37-47); Hemoglobin 8.4 g/dL (12.0-15.0); Lymphocyte % 12.6 % (19-41); Mean Corp Hgb Conc 28.3 g/dL (32-36); Mean Corpuscular Hgb 26.6 pg (27.0-32.0); Mean Platelet Vol. 10.1 fl (6.2-12.0); Monocyte% 7.6 % (0-10); NRBC Flagged by Analyzer 0.4 % (0-5); Neutrophil # 6.09 X10^3/uL (2.7-7.7); Neutrophil % 77.1 % (47-70); POSITIVE MORPHOLOGY YES; Platelet Count 153 K/mm3 (150-450); RBC Distribution Width CV 18.8 % (11.6-14.6); RBC Distribution Width SD 65.1 fl (35.1-43.9); Red Blood Count 3.16 M/mm3 (4.2-5.4); White Blood Count 7.9 K/mm3 (4.4-11.0)
[2022-02-24 07:15] LABS: Differential Indicated SCAN CRITERIA MET
[2022-02-24 07:41] LABS: Bedside Glucose 138 mg/dL (74-106)
[2022-02-24 07:41] LABS: Bedside Glucose 37 mg/dL (74-106)
[2022-02-24 07:52] LABS: Differential Comment SCANNED
[2022-02-24 07:54] LABS: Anisocytosis 1+; Hypochromasia 1+
[2022-02-24 07:55] LABS: Anion Gap 3 (5-15); BUN 49 mg/dL (7-18); BUN/Creat Ratio 40.8 RATIO (10-20); Calcium,Total 9.2 mg/dL (8.5-10.1); Chloride 99 mmol/L (98-107); EST Glomerular Filtration Rate 48 mL/min (>60); Est Glom Filt Rate - Afr Amer 58 mL/min (>60); Estimated Creatinine Clearance 43.17 ml/min; Glucose 43 mg/dL (74-106); Magnesium 1.7 mg/dL (1.6-2.6); Ovalocyte 1+; Potassium 3.2 mmol/L (3.5-5.1); Sodium Level 143 mmol/L (136-145)
[2022-02-24] MEDS: Menthol/Lanolin/Calamine/Znox 113 GM Tube 1 APPLIC TOPICAL (11:03)
[2022-02-24] MEDS: Ferrous Sulfate 325 MG Tablet PO (11:06)
[2022-02-24] MEDS: Fluconazole 100 MG Tablet 200 MG PO (11:06)
[2022-02-24] MEDS: Metoprolol(XL)Succ 25 MG Tablet 12.5 MG PO (11:06)
[2022-02-24] MEDS: Paroxetine 20 MG Tablet PO (11:07)
[2022-02-24] MEDS: Aspirin E.C. 81 MG Tablet PO (11:07)
[2022-02-24] MEDS: Enoxaparin 40 MG/0.4 ML Syringe SC (11:07)
[2022-02-24] MEDS: Juven (unflavored) Packet 1 PACKET PO ×2 (11:07→16:41)
[2022-02-24] MEDS: Pantoprazole Sodium 40 MG Tablet PO (11:07)
[2022-02-24] MEDS: Gabapentin 100 MG Capsule 200 MG PO ×2 (11:19→16:41)
[2022-02-24] MEDS: traMADol 50 MG Tablet PO (11:25)
[2022-02-24] MEDS: Potassium Chloride Oral Tablet 20 MEQ 40 MEQ PO (11:26)
[2022-02-24] MEDS: Bumetanide 2 MG Tablet PO ×2 (11:36→14:52)
[2022-02-24 13:20] LABS: Bedside Glucose 122 mg/dL (74-106)
[2022-02-24] MEDS: Acetaminophen 325 MG Tablet 650 MG PO (14:52)
--- NOTE | 2022-02-24 15:29 | PCM.TXEXTCAR ---
Diet Diet Order/Speech Therapy: 02/17/22 09:29 Diet: Consistent Carb - Calorie Controlled Dietary Modifications:: Cardiac / Heart Healthy Sodium Restricted Is pt able to select menu?: No Fluid restriction:: 1750 mL How many daily calories?: 1800 calorie Routine Orders/Code Status Suppository Frequency: Daily PRN O2 Liters per Minute: 3 O2 Frequency: Continuous Keep PO Greater than or Equal to (%): 88 Routine Lab Work: CBC (In 3 days) and BMP (In 3 days) Code Status: Full Code Wound(s) L Foot: Wound Type: nonhealing surgical/diabetic ulcer Dressing Change: betadine with dry dressing R Foot: Wound Type: Pressure Injury left heel: Wound Type: Pressure Injury Dressing Change: betadine with dry dressing right heel: Wound Type: Pressure Injury Dressing Change: betadine with dry dressing Therapies Weight Bearing: Non weight bearing (Bilateral lower extremities) Physical Therapy: Eval and Treat Occupational Therapy: Eval and Treat Problem/Diagnosis (1) Acute respiratory failure with hypoxia and hypercapnia: Status: Acute Code(s): J96.01 - Acute respiratory failure with hypoxia; J96.02 - Acute respiratory failure with hypercapnia (2) CHF (congestive heart failure): Status: Acute Code(s): I50.9 - Heart failure, unspecified (3) MIKE (acute kidney injury): Status: Acute Code(s): N17.9 - Acute kidney failure, unspecified (4) Dry gangrene: Status: Acute Code(s): I96 - Gangrene, not elsewhere classified (5) Multiple wounds: Status: Acute Code(s): T07.XXXA - Unspecified multiple injuries, initial encounter (6) Morbid obesity: Status: Acute Code(s): E66.01 - Morbid (severe) obesity due to excess calories Allergies/Procedures Done in Hospital Allergies doxycycline Allergy (Verified 02/17/22 02:59) NEEDS FOLLOW-UP latex Allergy (Verified 02/17/22 02:59) NEEDS FOLLOW-UP Sulfa (Sulfonamide Antibiotics) Allergy (Verified 02/17/22 02:59) Anaphylaxis sulfur dioxide Allergy (Verified 02/17/22 02:59) Anaphylaxis atorvastatin Adverse Reaction (Verified 02/17/22 02:59) Other muscle pain oxycodone Adverse Reaction (Verified 02/17/22 02:59) Other makes me crazy Type of Care/Length of Stay Estimated LOS: More Than 30 Days Type of Care Needed: Intermediate Rehab Potential: Fair Prognosis: Fair Additional Orders/Day of Discharge Day of Discharge: 02/24/22 Dietary and Speech Recommendations Dietitian Recommendations/Changes: Will adjust diet to 1800 calorie/consistent carbohydrate, cardiac/sodium restricted with fluid restriction as indicated per physician. Will continue Say BID for wound healing. Discharge Plan Admission Admit Date/Time: 02/17/22 11:02 Attending Provider: Haydee Dewitt Primary Care Provider: Geovanna Mott [employer] Consulting Providers: Lukasz Godoy ; Lalo Cooper Discharge Orders/Prescriptions Prescriptions: No Action aspirin [Adult Aspirin Regimen] 81 mg tablet,delayed release (DR/EC) 81 mg PO DAILY Levemir FlexTouch U-100 Insuln 100 unit/mL (3 mL) insulin pen 35 unit SUBCUT QHS metoprolol succinate 50 mg tablet extended release 24 hr 50 mg PO DAILY sennosides-docusate sodium [Senna-S] 8.6-50 mg Tablet 1 tab PO BID levothyroxine [Synthroid] 100 mcg tablet 100 mcg PO DAILY trazodone 100 mg tablet 150 mg PO QHS montelukast 10 mg tablet 10 mg PO QHS gabapentin 100 mg capsule 200 mg PO TID albuterol sulfate 90 mcg/actuation HFA aerosol inhaler 2 puff INHALATION 4X/DAY PRN PRN (Reason: Shortness Of Breath Or Wheezing) Label Comments: 2 PUFFS BY MOUTH FOUR TIMES A DAY NEEDED acetaminophen [Tylenol] 325 mg Tablet 650 mg PO Q6H PRN PRN (Reason: Pain 1-10 Or Fever >100.7) Qty: 0 0RF Say (with collagen) 7-7-1.5 gram Powder In Packet 1 packet PO BIDCM Qty: 0 0RF fluconazole 200 mg Tablet 400 mg PO DAILY omeprazole 40 mg Capsule,Delayed Release(Dr/Ec) 40 mg PO BID sodium chloride 0.9 % (flush) [Normal Saline Flush] Syringe 10 ml IV QHS polyethylene glycol 3350 17 gram powder in packet 17 g PO DAILY ferrous sulfate [FeroSul] 325 mg (65 mg iron) tablet 325 mg PO LUNCH nystatin [Nyamyc] 100,000 unit/gram powder 1 applic topical TID Protocol: *Topical Application Instructions APPLICATION INSTRUCTIONS: apply to groin tid for redness insulin lispro [Humalog KwikPen Insulin] 100 unit/mL insulin pen 10 unit subcut TIDAC paroxetine HCl [Paxil] 20 mg Tablet 20 mg PO DAILY mirtazapine 30 mg tablet 15 mg PO QHS furosemide [Lasix] 40 mg tablet 40 mg PO BID Qty: 60 11RF Referrals / Follow Up: Geovanna Mott [employer], [employer] [Primary Care Provider] -
--- NOTE | 2022-02-24 15:31 | PCM.DC.SUM ---
Providers Date of Admission: 02/17/22 Primary Care Physician: DEVON Peacock Consultations 02/17/22 05:08 Consult: Onc/Wound/assessment nurse Routine Comment: Reason for Consult:: Bilateral leg wound Reason For Visit: ACUTE HYPERCAPNIC RESPIRATORY FAILURE Diagnosis Discharge Diagnosis (1) Acute respiratory failure with hypoxia and hypercapnia: Status: Acute Code(s): J96.01 - Acute respiratory failure with hypoxia; J96.02 - Acute respiratory failure with hypercapnia (2) CHF (congestive heart failure): Status: Acute Code(s): I50.9 - Heart failure, unspecified (3) MIKE (acute kidney injury): Status: Acute Code(s): N17.9 - Acute kidney failure, unspecified (4) Dry gangrene: Status: Acute Code(s): I96 - Gangrene, not elsewhere classified (5) Multiple wounds: Status: Acute Code(s): T07.XXXA - Unspecified multiple injuries, initial encounter (6) Morbid obesity: Status: Acute Code(s): E66.01 - Morbid (severe) obesity due to excess calories Plan Acute on chronic hypoxic and hypercapnic respiratory failure secondary to decompensated HFpEF/severe pulmonary artery hypertension -Currently on 2-3 L nasal cannula -Echo from 10/17/2021 shows an EF of 55%/mild left atrial enlargement, moderate mitral and tricuspid valve insufficiency, and a right ventricular systolic pressure of 55 mmHg with indeterminate diastolic function -Remains reported approximately 5 L negative however patient has been incontinent -Continue Bumex as ordered -Down 10 kg for the admission -Negative at least 6-1/2 L with some episodes of incontinence -Strict I's and O's -Sodium restricted diet -Daily weights -Continue fluid restriction of 1750 cc--> patient indicates her fluid intake at the nursing facility has been very liberal Bilateral lower extremity diabetic foot wounds -Following outpatient with podiatry -Wound care following -had a left great toe amputation and her left second toe appears to be gangrenous, she says that she is following up with podiatry as an outpatient and will likely need an amputation.? -She does not have a white count and is afebrile no acute etiology at this time -Continue home fluconazole DM-2 -Continue long-acting insulin -Continue Accu-Cheks as ordered -Blood sugars are overall well controlled with fasting this morning 152 -Continue sliding scale -Most recent hemoglobin A1c was 7.5 from 12/16/2021 and appears to be consistently stable MIKE on CKD stage II -Baseline serum creatinine appears to run between 0.9 and 1.2 -It appears that the reason for her creatinine elevation on admission was cardiorenal syndrome as her creatinine continues to improve with aggressive diuresis -Serum creatinine 2.34 on admission -Down to 1.23 despite diuresis -Continue diuresis with Bumex -Repeat BMP in a.m. -Suspect patient likely has diabetic nephropathy at baseline Chronic normocytic anemia -Hemoglobin has been stable -No signs of acute blood loss -continue to monitor periodically Chronic thrombocytopenia -Counts are stable -Continue to monitor Diabetic neuropathy -Continue home gabapentin -As needed Tylenol -As needed Ultram Hypertension/hyperlipidemia/CAD status post stents -Patient was statin allergy -Continue home aspirin -Continue metoprolol 50 mg daily Hypothyroidism -Continue home Synthroid -Most recent TSH from 12/16/2021 was 3.17 and overall relatively stable Morbid obesity -BMI 40.2 -Recommend weight loss -Complicates treatment, prognosis, outcomes Insomnia -Restart home trazodone -Start melatonin 10 mg at at bedtime Debility -PT/OT following DVT prophylaxis -Continue enoxaparin Dispo: -Patient is stable to discharge awaiting pre-CERT to go back to the nursing facility -We will transition to Bumex orally 3 times daily at the time of discharge with close follow-up on her renal function Medications at Discharge Home Medications aspirin 81 mg tablet,delayed release (Adult Aspirin Regimen) 81 mg PO DAILY heart 05/17/21 metoprolol succinate 50 mg tablet,extended release 24 hr 50 mg PO DAILY BLOOD PRESSURE 11/08/21 gabapentin 100 mg capsule 200 mg PO TID NERVE PAIN 12/13/21 levothyroxine 100 mcg tablet (Synthroid) 100 mcg PO DAILY THYROID 12/13/21 montelukast 10 mg tablet 10 mg PO QHS ALLERGIES 12/13/21 sennosides 8.6 mg-docusate sodium 50 mg tablet (Senna-S) 1 tab PO BID STOOL SOFTNER 12/13/21 trazodone 100 mg tablet 150 mg PO QHS SLEEP 12/13/21 albuterol sulfate 90 mcg/actuation aerosol inhaler 2 puff inhalation 4X/DAY PRN PRN Shortness Of Breath Or Wheezing 12/19/21 acetaminophen 325 mg tablet (Tylenol) 650 mg PO Q6H PRN PRN Pain 1-10 Or Fever >100.7 #0 tabs 12/21/21 arginine 7 gram-glutam 7 gram-CaHMB 1.5 [id number]-min oral pwd pkt (Say (with collagen)) 1 packet PO BIDCM #0 ea 12/21/21 ferrous sulfate 325 mg (65 mg iron) tablet (FeroSul) 325 mg PO LUNCH SUPPLEMENT 12/28/21 fluconazole 200 mg tablet 400 mg PO DAILY 12/28/21 insulin lispro 100 unit/mL subcutaneous pen (Humalog KwikPen (U-100) Insulin) 10 unit subcut TIDAC DIABETES 12/28/21 nystatin 100,000 unit/gram topical powder (Nyamyc) 1 applic topical TID IRRITATION 12/28/21 omeprazole 40 mg capsule,delayed release 40 mg PO BID GERD 12/28/21 polyethylene glycol 3350 17 gram oral powder packet 17 g PO DAILY CONSTIPATION 12/28/21 sodium chloride 0.9 % (flush) (Normal Saline Flush 0.9 % injection syringe) 10 ml IV QHS VANCOMYCIN 12/28/21 paroxetine HCl 20 mg tablet (Paxil) 20 mg PO DAILY 01/12/22 mirtazapine 30 mg tablet 15 mg PO QHS 02/17/22 apixaban 5 mg tablet (Eliquis) 5 mg PO BID #0 tabs 02/24/22 bumetanide 2 mg tablet 2 mg PO TID #0 tabs 02/24/22 insulin detemir U-100 100 unit/mL (3 mL) subcutaneous pen (Levemir FlexTouch U-100 Insulin) 25 unit (0.25 mL) subcut QHS blood sugar #15 mL 02/24/22 potassium chloride 20 mEq tablet,extended release(part/cryst) (Klor-Con M) 20 meq PO DAILYCM #0 tabs 02/24/22 Hospital Course Operations None Procedures EKG and - (Chest x-ray) Summary of Care Provided Minutes Spent on Discharge: 40 Hospital Course: Mrs. Lincoln is a 66-year-old white female who resides at a nursing facility who presented to the emergency department at [facility] with altered mental status. Evidently at the nursing facility she was unable to be awakened. This persisted in route to the emergency department however when she arrived at the hospital she was more arousable. She reported she had been more swollen than typical. Her mental status declined again and she was placed on BiPAP. She appeared markedly volume overloaded with acute kidney injury and was found to be hypercapnic on VBG. She was placed on BiPAP and aggressive diuresis. Her serum creatinine was 2.34 on admission and I suspect her acute kidney injury was cardiorenal as she improved to creatinine of 1.20 at the time of discharge with aggressive diuresis. Its most likely she is off the [place] curve and had renal failure related to pump failure. She has known heart failure with preserved ejection fraction. She did admit that she had not been really following her fluid restriction at the facility and was unclear if she was following her salt restriction. With aggressive diuresis she dropped 10 kg of weight and was negative at least 6-1/2 L but likely more as her I's and O's were inaccurate secondary to urine incontinence for her hospital course. She did have several episodes of A. fib with RVR. We increased her beta-skyler and we did start her on Eliquis as she is high risk for stroke. We transition from IV to oral diuretics. I did use Bumex as her albumin is lower and this should be more effective in the outpatient setting. She had a recent echocardiogram done in September of this year that showed a EF of 55% with normal LV wall motion, mild left atrial enlargement, moderate tricuspid and mitral valve insufficiency, and right ventricular systolic pressure of 55 mmHg that is consistent with pulmonary hypertension. I suspect all of her heart failure is both diastolic and right-sided. She would likely benefit from outpatient polysomnography and nocturnal CPAP or BiPAP if this can be arranged. She was discharged on 3 L nasal cannula and I would continue this and wean to keep her sats greater than 88%. With regards to the wound on her foot she did not seem to have any acute infection related to this. I recommend outpatient podiatry follow-up. She did inform me that it is likely that she will need amputation at some point in the future. She does have some fasting blood sugars that were on the low side. Her basal insulin was 35 units I did decrease this to 25 units at the time of discharge and we will have to monitor her blood sugars closely. She will need close follow-up lab with her diuresis with regards to her electrolytes and renal function. She did indicate she has a follow-up with a turbine room attendant coming up soon. I would follow her serum creatinine every few days for 1 to 2 weeks to assure her renal function is stable and that her electrolytes are stable as well. She was able to be [facility] the [facility] on 02/24/2022 in stable condition Discharge diagnoses: Acute on chronic hypoxic and hypercapnic respiratory failure-resolved Decompensated HFpEF-resolved Severe pulmonary hypertension-who group 2/3 Bilateral lower extremity diabetic foot wounds-continued podiatry follow-up DM-2 Paroxysmal atrial fibrillation with RVR MIKE-resolved CKD stage II Chronic normocytic anemia-stable Chronic thrombocytopenia-stable Diabetic neuropathy Hypertension Hyperlipidemia CAD Hypothyroidism Morbid obesity Insomnia Debility Physical Exam Const alert, oriented x3 and no apparent distress Constitutional Narrative: Upper middle-aged white female sitting up in bed, appears comfortable, nontoxic, currently on 3 L nasal cannula, appears much older than stated age, appears to have significant debility for age watching television, nursing admin at bedside General Appearance: cooperative, comfortable and well developed Orientation / Consciousness: awake, oriented to person, oriented to place and oriented to time Exam Limitations: no limitations Nutritional Appearance: obese HEENT normocephalic, head/scalp atraumatic, hearing grossly normal bilaterally and moist oral mucous membranes HEENT Narrative: Dentition is poor, Mallampati is 2-3, no thrush Eyes PERRL and EOMs intact bilaterally Eyes Narrative: Conjunctiva are mildly pale Neck no lymphadenopathy and supple Neck Narrative: Trachea midline, no thyroid enlargement Resp normal respiratory effort, no retractions, no use of accessory muscles and clear to auscultation bilaterally Resp Narrative: Diffusely diminished but clear Auscultation: Negative for crackles, rhonchi or wheezes Cardio regular rate, regular rhythm, S1 normal heart sound, S2 normal heart sound, no rub, no gallops and no clicks Cardio Narrative: 2 out of 6 systolic murmur loudest at right upper sternal border GI normal to inspection, nondistended, normoactive bowel sounds, soft to palpation and non-tender 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 Extremity Extremity Narrative: Anasarca with slow improvement, legs and hands are starting to improve but still with 2+ pitting edema, no cyanosis or clubbing, cap refill in hands is 2+ 1+ in bilateral feet Skin skin turgor normal and no jaundice Skin Narrative: Left lower extremity foot wound reviewed pictures with necrotic second digit-dry gangrene with no signs of acute infection or cellulitic changes stable since admission Neuro oriented x3, CN's II-XII intact bilaterally, moves all extremities and no focal motor deficits Speech: speech normal Psych affect normal Psych Narrative: Pleasant and appropriate Weight / BMI Weight Weight: 100.4 kg Body Mass Index (BMI) 40.1 ABG / Lab / Microbiology Data Result Diagrams: 02/24/22 06:38 02/24/22 06:38 Laboratory: Laboratory Results - last 24 hr 02/23/22 15:53: POC Glucose 98 02/23/22 21:58: POC Glucose 127 H 02/24/22 06:38: WBC 7.9, RBC 3.16 L, Hgb 8.4 L, Hct 29.7 L, MCV 94.0, MCH 26.6 L, MCHC 28.3 L, RDW Std Deviation 65.1 H, RDW Coeff of Magen 18.8 H, Plt Count 153, MPV 10.1, Immature Gran % (Auto) 0.600, Neut % (Auto) 77.1 H, Lymph % (Auto) 12.6 L, [place] % (Auto) 7.6, Eos % (Auto) 1.6, Baso % (Auto) 0.5, Absolute Neuts (auto) 6.1, Absolute Lymphs (auto) 1.00, Nucleated RBC % 0.4, Differential Comment SCANNED, Hypochromasia 1+, Anisocytosis 1+, Ovalocytes 1+ 02/24/22 06:38: Sodium 143, Potassium 3.2 L, Chloride 99, Carbon Dioxide 41.0 H, Anion Gap 3 L, BUN 49 H, Creatinine 1.20 H, Estim Creat Clear Calc 43.17, Est GFR (MDRD) Af Amer 58 L, Est GFR (MDRD) Non-Af 48 L, BUN/Creatinine Ratio 40.8 H, Glucose 43 L*, Calcium 9.2, Magnesium 1.7 02/24/22 06:56: POC Glucose 37 L* 02/24/22 07:17: POC Glucose 138 H 02/24/22 11:29: POC Glucose 122 H Microbiology: Microbiology 02/17/22 02:09 Nasal Secretion SARS-CoV-2 & FLU Antigen (Rapid) - Final Meaningful Use Info Meaningful Use Diagnoses (Choose all that apply): None applicable Discharge Plan Admission Admit Date/Time: 02/17/22 11:02 Primary Reason for Your Visit: Change in mental status Attending Provider: Haydee Dewitt Primary Care Provider: Geovanna Mott [employer] Consulting Providers: Lukasz Godoy ; Lalo Cooper Discharge Orders/Prescriptions Prescriptions: New bumetanide 2 mg Tablet 2 mg PO TID Qty: 0 0RF potassium chloride [Klor-Con M20] 20 mEq Tablet,Er Particles/Crystals 20 meq PO DAILYCM Qty: 0 0RF Eliquis 5 mg Tablet 5 mg PO BID Qty: 0 0RF Continued aspirin [Adult Aspirin Regimen] 81 mg tablet,delayed release (DR/EC) 81 mg PO DAILY metoprolol succinate 50 mg tablet extended release 24 hr 50 mg PO DAILY sennosides-docusate sodium [Senna-S] 8.6-50 mg Tablet 1 tab PO BID levothyroxine [Synthroid] 100 mcg tablet 100 mcg PO DAILY trazodone 100 mg tablet 150 mg PO QHS montelukast 10 mg tablet 10 mg PO QHS gabapentin 100 mg capsule 200 mg PO TID albuterol sulfate 90 mcg/actuation HFA aerosol inhaler 2 puff INHALATION 4X/DAY PRN PRN (Reason: Shortness Of Breath Or Wheezing) Label Comments: 2 PUFFS BY MOUTH FOUR TIMES A DAY NEEDED acetaminophen [Tylenol] 325 mg Tablet 650 mg PO Q6H PRN PRN (Reason: Pain 1-10 Or Fever >100.7) Qty: 0 0RF Say (with collagen) 7-7-1.5 gram Powder In Packet 1 packet PO BIDCM Qty: 0 0RF fluconazole 200 mg Tablet 400 mg PO DAILY omeprazole 40 mg Capsule,Delayed Release(Dr/Ec) 40 mg PO BID sodium chloride 0.9 % (flush) [Normal Saline Flush] Syringe 10 ml IV QHS polyethylene glycol 3350 17 gram powder in packet 17 g PO DAILY ferrous sulfate [FeroSul] 325 mg (65 mg iron) tablet 325 mg PO LUNCH nystatin [Nyamyc] 100,000 unit/gram powder 1 applic topical TID Protocol: *Topical Application Instructions APPLICATION INSTRUCTIONS: apply to groin tid for redness insulin lispro [Humalog KwikPen Insulin] 100 unit/mL insulin pen 10 unit subcut TIDAC paroxetine HCl [Paxil] 20 mg Tablet 20 mg PO DAILY mirtazapine 30 mg tablet 15 mg PO QHS Changed Levemir FlexTouch U-100 Insuln 100 unit/mL (3 mL) insulin pen 25 unit SUBCUT QHS Qty: 15 0RF Discontinued furosemide [Lasix] 40 mg tablet 40 mg PO BID Qty: 60 11RF Referrals / Follow Up: Geovanna Mott [employer], [employer] [Primary Care Provider] - Within 1 Month Disposition Disposition (needs filled in before D/C Order can be placed): Long-Term Facility Charges/Coding Visit Charges Inpatient E&M: 89195 SNF Disch >30 Min
[2022-02-24] MEDS: Insulin Lispro 100 UNIT/ML INSULN.PEN SC (17:04)
--- NOTE | 2022-02-24 17:10 | CASEMGMT ---
Social Work Precert obtained and per physician, pt is ready for discharge. SW entered pt room and informed of return to [facility]. Pt stating she does not want to return to [facility]. Pt son on speaker phone and confirms does not want pt to return to [facility]. SW informed pt and son Aydin that upon hospital admission pt confirmed return to [facility] and insurance precert has been obtained for [facility]. No medical reason to continue stay in hospital. Pt and son requesting discharge to [facility]. Phone call to [facility] and continuity coordinator is gone for the weekend. GREG spoke with administrative assistant data entry who states if they have a bed avialable, they will assist pt with transfer to [facility] from [facility]. GREG spoke with pt and son and informed that [facility] unable to accept at this time but will assist them next with. Pt and son now agreeable to return to [facility] at this time. Son given name and phone number of [facility] admissions. Transportation arranged with Physicians for 6:30 picker machine operator via cot. [facility] notified and orders sent via [facility]. Nursing updated on discharge time. Disposition: [facility], skilled level of care JAYY Emery
--- NOTE | 2022-02-24 18:04 | NURSING ---
report called to Daina pop.
[2022-02-24 19:50] LABS: Bedside Glucose 159 mg/dL (74-106)
== END 2022-02-24 18:43 | disposition skilled nursing facility (03) | DRG 291 ==
LOC: ED 02:50 → PCU 04:34
PROVIDERS: Family Medicine; Admitting Provider Hospitalist; Emergency Provider Emergency Medicine; PCP Nurse Practitioner Adult Health; Visit Provider Internal Medicine
DX: I13.0 Hypertensive heart and chronic kidney disease with heart failure and stage 1 through stage 4 chronic kidney disease, or unspecified chronic kidney disease (principal); J96.21 Acute and chronic respiratory failure with hypoxia; I50.33 Acute on chronic diastolic (congestive) heart failure; J96.22 Acute and chronic respiratory failure with hypercapnia; N17.9 Acute kidney failure, unspecified; I96 Gangrene, not elsewhere classified; Z68.41 Body mass index [BMI] 40.0-44.9, adult; I27.20 Pulmonary hypertension, unspecified; D69.6 Thrombocytopenia, unspecified; E88.09 Other disorders of plasma-protein metabolism, not elsewhere classified; D63.1 Anemia in chronic kidney disease; E11.21 Type 2 diabetes mellitus with diabetic nephropathy; E11.65 Type 2 diabetes mellitus with hyperglycemia; Z79.4 Long term (current) use of insulin; E66.01 Morbid (severe) obesity due to excess calories; E11.42 Type 2 diabetes mellitus with diabetic polyneuropathy; J44.9 Chronic obstructive pulmonary disease, unspecified; E11.22 Type 2 diabetes mellitus with diabetic chronic kidney disease; I48.0 Paroxysmal atrial fibrillation; Z89.422 Acquired absence of other left toe(s); E11.621 Type 2 diabetes mellitus with foot ulcer; L89.610 Pressure ulcer of right heel, unstageable; L89.620 Pressure ulcer of left heel, unstageable; L97.523 Non-pressure chronic ulcer of other part of left foot with necrosis of muscle; E03.9 Hypothyroidism, unspecified; I08.1 Rheumatic disorders of both mitral and tricuspid valves; I25.10 Atherosclerotic heart disease of native coronary artery without angina pectoris; E78.5 Hyperlipidemia, unspecified; N18.2 Chronic kidney disease, stage 2 (mild); K21.9 Gastro-esophageal reflux disease without esophagitis; E87.5 Hyperkalemia; F41.9 Anxiety disorder, unspecified; I25.2 Old myocardial infarction; G47.00 Insomnia, unspecified; R53.81 Other malaise; Z95.5 Presence of coronary angioplasty implant and graft; Z99.81 Dependence on supplemental oxygen; Z79.01 Long term (current) use of anticoagulants; Z79.82 Long term (current) use of aspirin; Z79.899 Other long term (current) drug therapy; Z87.891 Personal history of nicotine dependence
CPT/HCPCS: 36415; 36600; 71045; 80048; 80053; 82803; 82962; 83735; 83880; 84100; 85025; 87428; 87811; 93005; 94002; 94762; 97162; 97166; 97530; 97535; 99285; A4216; J1940

== ENCOUNTER 2022-03-20 18:57 | Emergency (ER) | payer MEDICARE, MEDICAID, SELFPAY ==
[2022-03-20 18:58] VITALS: BP 126/66; PULSE 65; RESP 16; TEMP 35.8; O2SAT 95; BMI 35.4
--- NOTE | 2022-03-20 19:28 | EX.ED.DYSGE1 ---
HPI History of Present Illness Chief Complaint: Abn Labs Narrative Narrative: 67-year-old female past medical history of COPD, CHF, wears 3 to 4 L of nasal cannula oxygen at all times, presents with need for transfusion. She has history of chronic anemia. She last received a transfusion in January of last year. She states she presents from [facility], where she has been for the last 6 months because she had to have a toe amputation. She is not a permanent resident. Reportedly, they did blood work today and she had a low hemoglobin of 6.9. She states that she may be a little more short of breath than usual but just denies any chest pain. She denies bleeding from other sites, no dark stool or rectal bleeding. She presents for transfusion of blood products. [facility] Medical History Acute cervical myofascial strain Acute on chronic respiratory failure with hypoxemia Acute respiratory failure with hypoxia Amputated toe of left foot Anemia Asthma Atherosclerotic heart disease of [place] coronary artery without angina pectoris Atrial fibrillation Atrial fibrillation with rapid ventricular response CAD (coronary artery disease) CHF (congestive heart failure) Chronic congestive heart failure Chronic heart failure with preserved ejection fraction (HFpEF) Chronic heel ulcer Chronic respiratory failure with hypoxia, on home oxygen therapy Chronic ulcer of great toe of left foot Closed head injury Congestive heart failure (CHF) COPD (chronic obstructive pulmonary disease) Current use of insulin Decubitus ulcer of dorsum of foot, stage 2 Decubitus ulcer of left heel, stage 2 Decubitus ulcer of left heel, stage 3 Decubitus ulcer, heel, left, unstageable Depression Diabetes mellitus with diabetic polyneuropathy Diabetes type 2, controlled Diabetic foot ulcers Diverticulitis Dry gangrene Essential hypertension Former smoker History of amputation of left great toe History of non-ST elevation myocardial infarction (NSTEMI) (02/24/17) Hyperlipidemia Hypothyroid Morbid obesity Multiple wounds Myocardial infarct Non-rheumatic tricuspid valve insufficiency Nondisplaced fracture of distal phalanx of right great toe, initial encounter for closed fracture Nonrheumatic mitral (valve) insufficiency Obesity Obstructive sleep apnea On home O2 Renal insufficiency Secondary pulmonary arterial hypertension Thrombocytopenia Type 2 diabetes mellitus Vitamin D deficiency Home Medications aspirin 81 mg tablet,delayed release (Adult Aspirin Regimen) 81 mg PO DAILY heart 05/17/21 [History Last Taken 12/28/21] metoprolol succinate 50 mg tablet,extended release 24 hr 50 mg PO DAILY BLOOD PRESSURE 11/08/21 [History Last Taken 12/27/21] gabapentin 100 mg capsule 200 mg PO TID NERVE PAIN 12/13/21 [History Last Taken 12/28/21] levothyroxine 100 mcg tablet (Synthroid) 100 mcg PO DAILY THYROID 12/13/21 [History Last Taken 12/28/21] montelukast 10 mg tablet 10 mg PO QHS ALLERGIES 12/13/21 [History Last Taken 12/27/21] sennosides 8.6 mg-docusate sodium 50 mg tablet (Senna-S) 1 tab PO BID STOOL SOFTNER 12/13/21 [History Last Taken 12/27/21] trazodone 100 mg tablet 150 mg PO QHS SLEEP 12/13/21 [History Last Taken 12/27/21] albuterol sulfate 90 mcg/actuation aerosol inhaler 2 puff inhalation 4X/DAY PRN PRN Shortness Of Breath Or Wheezing 12/19/21 [History Last Taken Unknown] acetaminophen 325 mg tablet (Tylenol) 650 mg PO Q6H PRN PRN Pain 1-10 Or Fever >100.7 #0 tabs 12/21/21 [Rx Last Taken 12/27/21] arginine 7 gram-glutam 7 gram-CaHMB 1.5 [id number] oral pwd pkt (Say (with collagen)) 1 packet PO BIDCM #0 ea 12/21/21 [Rx Last Taken 12/27/21] ferrous sulfate 325 mg (65 mg iron) tablet (FeroSul) 325 mg PO LUNCH SUPPLEMENT 12/28/21 [History Last Taken 12/27/21] fluconazole 200 mg tablet 400 mg PO DAILY 12/28/21 [History Last Taken Unknown] insulin lispro 100 unit/mL subcutaneous pen (Humalog KwikPen (U-100) Insulin) 10 unit subcut TIDAC DIABETES 12/28/21 [History Last Taken 12/27/21] nystatin 100,000 unit/gram topical powder (Nyamyc) 1 applic topical TID IRRITATION 12/28/21 [History Last Taken 12/28/21] omeprazole 40 mg capsule,delayed release 40 mg PO BID GERD 12/28/21 [History Last Taken 12/27/21] polyethylene glycol 3350 17 gram oral powder packet 17 g PO DAILY CONSTIPATION 12/28/21 [History Last Taken 12/27/21] sodium chloride 0.9 % (flush) (Normal Saline Flush 0.9 % injection syringe) 10 ml IV QHS VANCOMYCIN 12/28/21 [History Last Taken 12/27/21] paroxetine HCl 20 mg tablet (Paxil) 20 mg PO DAILY 01/12/22 [History Last Taken Unknown] mirtazapine 30 mg tablet 15 mg PO QHS 02/17/22 [History Last Taken Unknown] apixaban 5 mg tablet (Eliquis) 5 mg PO BID #0 tabs 02/24/22 [Rx Last Taken Unknown] bumetanide 2 mg tablet 2 mg PO TID #0 tabs 02/24/22 [Rx Last Taken Unknown] insulin detemir U-100 100 unit/mL (3 mL) subcutaneous pen (Levemir FlexTouch U-100 Insulin) 25 unit (0.25 mL) subcut QHS blood sugar #15 mL 02/24/22 [Rx Last Taken 12/27/21] potassium chloride 20 mEq tablet,extended release(part/cryst) (Klor-Con M) 20 meq PO DAILYCM #0 tabs 02/24/22 [Rx Last Taken Unknown] Allergy/AdvReac Type Severity Reaction Status Date / Time doxycycline Allergy NEEDS Verified 02/17/22 02:59 FOLLOW-UP latex Allergy NEEDS Verified 02/17/22 02:59 FOLLOW-UP Sulfa (Sulfonamide Allergy Anaphylaxis Verified 02/17/22 02:59 Antibiotics) sulfur dioxide Allergy Anaphylaxis Verified 02/17/22 02:59 atorvastatin AdvReac Other Verified 02/17/22 02:59 oxycodone AdvReac Other Verified 02/17/22 02:59 Family History Grandmother Diabetes Mother Heart disease Surgical History H/O right heart catheterization History of cataract surgery History of coronary artery stent placement (02/24/17) History of heart artery stent Tubal ligation status Social History household members: none housing: other details: [facility]. Smoking Status: Former smoker how long ago did patient quit smokin alcohol intake: former year quit: 1999 substance use type: does not use caffeine: Yes Type: carbonated beverages and tea ROS ROS ED ROS Narrative Constitutional: No fever, no chills. HEENT: No sore throat. No neck pain. No loss of vision. No rhinorrhea. Cardiovascular: No chest pain. No palpitations. No pedal edema. Respiratory: No cough, positive, chronic shortness of breath. Abdominal: No abdominal pain. No nausea. No vomiting. Genitourinary: No dysuria. No hematuria. Musculoskeletal: No myalgias. No arthralgias. Neurologic: No headaches. No dizziness. No lightheadedness. Skin: No rash. No change in color. Psychiatric: No depression. No anxiety. EXAM Physical Exam Narrative Exam Narrative: Afebrile. Vital signs noted. HEENT: Normocephalic. Atraumatic. PERRL, EOMI. Neck soft and supple. No point tenderness or step off. Cardiovascular: Regular rate and rhythm. No murmurs, rubs, or gallops appreciated. Respiratory: No tachypnea. Lungs clear to auscultation bilaterally. Gastrointestinal: Abdomen soft, nontender, with normoactive bowel sounds. No rebound or guarding. Neurological: Awake. Alert. Nonfocal, nonlateralizing. Skin: No rash. Normal color. Mild pallor. Positive subconjunctival pallor. No central cyanosis. Musculoskeletal: No pedal edema. Full range of motion extremities. Const Vital Signs: 03/20/22 18:58 03/20/22 20:02 03/20/22 20:51 Temperature 96.4 F L 96.6 F L Temperature Source Temporal Temporal Pulse Rate 65 64 Respiratory Rate 16 16 Respiratory Effort Normal Non-Labored Respiratory Pattern Normal Blood Pressure 126/66 H 138/91 H Blood Pressure Mean 86 106 Blood Pressure Source Monitor Blood Pressure Position Semi-Fowlers Blood Pressure Location Right Arm Pulse Ox 95 97 Oxygen Delivery Method Nasal Cannula Nasal Cannula Oxygen Flow Rate (L/min) 4 4 03/20/22 20:58 03/20/22 21:06 Temperature 96.6 F L Temperature Source Temporal Pulse Rate 66 65 Respiratory Rate 15 18 Respiratory Effort Respiratory Pattern Blood Pressure 128/68 H 128/68 H Blood Pressure Mean 88 88 Blood Pressure Source Monitor Blood Pressure Position Semi-Fowlers Blood Pressure Location Right Arm Pulse Ox 100 100 Oxygen Delivery Method Nasal Cannula Nasal Cannula Oxygen Flow Rate (L/min) 4 4 MDM MDM MDM Narrative Medical decision making narrative: I will repeat a CBC as her hemoglobin was reported borderline, just below 7.0. We will also check a BMP. I do feel this is more likely anemia of chronic disease that it would be an acute blood loss. I reviewed her laboratory work. She is O- on her type and crossmatch. Potassium slightly elevated 5.2, creatinine 2.28 with a BUN of 57. In review of her CBC, she has normal white count of 8.2, platelet count normal at 243, hemoglobin is actually 7.3. Blood bank had already set up 1 unit of blood although it was supposed to be held. This 1 unit will be transfused, but I do feel that she would be able to be discharged back to [facility]. Return instructions were reviewed. Disposition is discharged home in stable condition. Lab Data Attestation: I reviewed the patient's lab results. Labs: Laboratory Results - last 24 hr 03/20/22 03/20/22 03/20/22 19:29 19:33 19:33 WBC 8.2 RBC 2.64 L Hgb 7.3 L Hct 25.8 L MCV 97.7 MCH 27.7 MCHC 28.3 L RDW Std Deviation 74.8 H RDW Coeff of Magen 21.1 H Plt Count 243 MPV 10.6 Immature Gran % (Auto) 0.200 Neut % (Auto) 74.2 H Lymph % (Auto) 13.4 L [place] % (Auto) 8.5 Eos % (Auto) 3.3 Baso % (Auto) 0.4 Absolute Neuts (auto) 6.1 Absolute Lymphs (auto) 1.10 Nucleated RBC % 0 Differential Comment SCANNED Polychromasia RARE Hypochromasia 1+ Anisocytosis 2+ Microcytosis 1+ Macrocytosis 1+ Sodium 136 Potassium 5.2 H Chloride 99 Carbon Dioxide 32.0 Anion Gap 5 BUN 57 H Creatinine 2.28 H Estim Creat Clear Calc 21.84 Est GFR (MDRD) Af Amer 28 L Est GFR (MDRD) Non-Af 23 L BUN/Creatinine Ratio 25.0 H Glucose 141 H Calcium 8.7 Blood Type O NEGATIVE Antibody Screen NEGATIVE Crossmatch See Detail Discharge Plan Triage Chief Complaint: Abn Labs ED Provider: Benjy Sierra Dx/Rx/DC Orders Clinical Impression: Anemia, Anemia requiring transfusions, SOB (shortness of breath) Prescriptions: No Action aspirin [Adult Aspirin Regimen] 81 mg tablet,delayed release (DR/EC) 81 mg PO DAILY metoprolol succinate 50 mg tablet extended release 24 hr 50 mg PO DAILY sennosides-docusate sodium [Senna-S] 8.6-50 mg Tablet 1 tab PO BID levothyroxine [Synthroid] 100 mcg tablet 100 mcg PO DAILY trazodone 100 mg tablet 150 mg PO QHS montelukast 10 mg tablet 10 mg PO QHS gabapentin 100 mg capsule 200 mg PO TID albuterol sulfate 90 mcg/actuation HFA aerosol inhaler 2 puff INHALATION 4X/DAY PRN PRN (Reason: Shortness Of Breath Or Wheezing) Label Comments: 2 PUFFS BY MOUTH FOUR TIMES A DAY NEEDED acetaminophen [Tylenol] 325 mg Tablet 650 mg PO Q6H PRN PRN (Reason: Pain 1-10 Or Fever >100.7) Qty: 0 0RF Say (with collagen) 7-7-1.5 gram Powder In Packet 1 packet PO BIDCM Qty: 0 0RF fluconazole 200 mg Tablet 400 mg PO DAILY omeprazole 40 mg Capsule,Delayed Release(Dr/Ec) 40 mg PO BID sodium chloride 0.9 % (flush) [Normal Saline Flush] Syringe 10 ml IV QHS polyethylene glycol 3350 17 gram powder in packet 17 g PO DAILY ferrous sulfate [FeroSul] 325 mg (65 mg iron) tablet 325 mg PO LUNCH nystatin [Nyamyc] 100,000 unit/gram powder 1 applic topical TID Protocol: *Topical Application Instructions APPLICATION INSTRUCTIONS: apply to groin tid for redness insulin lispro [Humalog KwikPen Insulin] 100 unit/mL insulin pen 10 unit subcut TIDAC paroxetine HCl [Paxil] 20 mg Tablet 20 mg PO DAILY mirtazapine 30 mg tablet 15 mg PO QHS bumetanide 2 mg Tablet 2 mg PO TID Qty: 0 0RF potassium chloride [Klor-Con M20] 20 mEq Tablet,Er Particles/Crystals 20 meq PO DAILYCM Qty: 0 0RF Eliquis 5 mg Tablet 5 mg PO BID Qty: 0 0RF Levemir FlexTouch U-100 Insuln 100 unit/mL (3 mL) insulin pen 25 unit SUBCUT QHS Qty: 15 0RF Primary Care Provider: Geovanna Mott [employer] Referrals: Geovanna Mott [employer], [employer] [facility] [Primary Care Provider] - Activity Restrictions/Additional Instructions: Your hemoglobin here was 7.3, not 6.9. However, because you are symptomatic, you were transfused 1 unit of blood products. Follow-up with your primary care provider at [facility]. Disposition Disposition: [facility] Discharge Location: [facility]
[2022-03-20 19:45] LABS: Absolute Neutrophil Count 6.1 X10^3/uL (2.0-7.7); Basophil# 0.03 X10^3/uL; Basophil% 0.4 % (0-1); Eosinophil# 0.27 X10^3/uL; Eosinophils% 3.3 % (0-5); Hematocrit 25.8 % (37-47); Hemoglobin 7.3 g/dL (12.0-15.0); Lymphocyte % 13.4 % (19-41); Mean Corp Hgb Conc 28.3 g/dL (32-36); Mean Corpuscular Hgb 27.7 pg (27.0-32.0); Mean Corpuscular Volume 97.7 fL (81-99); Mean Platelet Vol. 10.6 fl (6.2-12.0); Monocyte% 8.5 % (0-10); NRBC Flagged by Analyzer 0 % (0-5); Neutrophil # 6.07 X10^3/uL (2.7-7.7); Neutrophil % 74.2 % (47-70); POSITIVE MORPHOLOGY YES; Platelet Count 243 K/mm3 (150-450); RBC Distribution Width CV 21.1 % (11.6-14.6); RBC Distribution Width SD 74.8 fl (35.1-43.9); Red Blood Count 2.64 M/mm3 (4.2-5.4); White Blood Count 8.2 K/mm3 (4.4-11.0)
[2022-03-20 19:51] LABS: Differential Indicated SCAN CRITERIA MET
[2022-03-20 20:03] LABS: Anion Gap 5 (5-15); BUN 57 mg/dL (7-18); Calcium,Total 8.7 mg/dL (8.5-10.1); Chloride 99 mmol/L (98-107); Creatinine, Serum 2.28 mg/dL (0.55-1.02); EST Glomerular Filtration Rate 23 mL/min (>60); Est Glom Filt Rate - Afr Amer 28 mL/min (>60); Estimated Creatinine Clearance 21.84 ml/min; Glucose 141 mg/dL (74-106); Potassium 5.2 mmol/L (3.5-5.1); Sodium Level 136 mmol/L (136-145)
[2022-03-20 20:15] LABS: Anisocytosis 2+; Differential Comment SCANNED; Polychromasia RARE
[2022-03-20 20:16] LABS: Hypochromasia 1+; Macrocytosis 1+; Microcytosis 1+
[2022-03-20 20:51] VITALS: BP 138/91; PULSE 64; RESP 16; TEMP 35.9; O2SAT 97
[2022-03-20 20:58] VITALS: BP 128/68; PULSE 66; RESP 15; O2SAT 100
[2022-03-20 21:06] VITALS: BP 128/68; PULSE 65; RESP 18; TEMP 35.9; O2SAT 100
[2022-03-20 22:06] VITALS: BP 133/61; PULSE 68; RESP 18; TEMP 36; O2SAT 98
[2022-03-20 23:06] VITALS: BP 135/76; PULSE 64; RESP 18; TEMP 36.2; O2SAT 94
[2022-03-21 00:06] VITALS: BP 148/72; PULSE 68; RESP 17; TEMP 36.6; O2SAT 95
[2022-03-21 01:07] VITALS: BP 141/93; PULSE 66; RESP 19; O2SAT 97
--- NOTE | 2022-03-21 01:59 | ED.RN ---
Report given to Andra BOURGEOIS for returning pt care.
[2022-03-21 03:00] VITALS: BP 136/78; PULSE 63; RESP 18; O2SAT 95
--- NOTE | 2022-03-21 04:26 | ED.RN ---
Per Dr. Sierra, pt is to only receive one unit of blood even though two units are ordered.
[2022-03-21 05:18] VITALS: BP 114/58; PULSE 68; RESP 21; O2SAT 100
== END 2022-03-21 06:48 | disposition skilled nursing facility (03) ==
PROVIDERS: Emergency Provider Emergency Medicine; PCP Nurse Practitioner Adult Health; Visit Provider Emergency Medicine
DX: D62 Acute posthemorrhagic anemia (principal); Z89.422 Acquired absence of other left toe(s); J44.9 Chronic obstructive pulmonary disease, unspecified; I11.0 Hypertensive heart disease with heart failure; I50.32 Chronic diastolic (congestive) heart failure; I27.21 Secondary pulmonary arterial hypertension; E11.42 Type 2 diabetes mellitus with diabetic polyneuropathy; J96.11 Chronic respiratory failure with hypoxia; D69.6 Thrombocytopenia, unspecified; Z79.4 Long term (current) use of insulin; I25.10 Atherosclerotic heart disease of native coronary artery without angina pectoris; E78.5 Hyperlipidemia, unspecified; Z99.81 Dependence on supplemental oxygen; I51.0 Cardiac septal defect, acquired; E03.9 Hypothyroidism, unspecified; E55.9 Vitamin D deficiency, unspecified; F32.9 Major depressive disorder, single episode, unspecified; E66.9 Obesity, unspecified; G47.33 Obstructive sleep apnea (adult) (pediatric); I25.2 Old myocardial infarction; Z95.5 Presence of coronary angioplasty implant and graft; Z79.899 Other long term (current) drug therapy; Z87.891 Personal history of nicotine dependence
CPT/HCPCS: 36430; 80048; 85025; 86850; 86900; 86901; 86920; 86922; 99285; J7040; P9016; A4216

== ENCOUNTER 2022-03-31 05:46 | Emergency (ER) | payer MEDICARE, SELFPAY ==
[2022-03-31 05:47] VITALS: BP 115/63; PULSE 80; RESP 16; TEMP 36.4; O2SAT 77; BMI 33.7
--- NOTE | 2022-03-31 06:10 | EDS_ITS ---
HPI History of Present Illness Chief Complaint: Alt LOC Narrative Narrative: Patient is a 67-year-old female from the detention with history of hypertension hyperlipidemia diabetes COPD as well as osteomyelitis of her feet requiring amputation of the left digits. intermediate states that this morning patient appeared unresponsive and I checked her blood sugar and it was low at 49. They gave her glucose and the sugar improved consider mental status. However they reported that her sugar then began to drop once again and therefore EMS was called to bring her in for evaluation. Patient states that the detention gives her all of her medications and she does not believe she was overdosed nor did she states that she took any excessive medication. [facility] Medical History Acute cervical myofascial strain Acute on chronic respiratory failure with hypoxemia Acute respiratory failure with hypoxia Amputated toe of left foot Anemia Asthma Atherosclerotic heart disease of [place] coronary artery without angina pectoris Atrial fibrillation Atrial fibrillation with rapid ventricular response CAD (coronary artery disease) CHF (congestive heart failure) Chronic congestive heart failure Chronic heart failure with preserved ejection fraction (HFpEF) Chronic heel ulcer Chronic respiratory failure with hypoxia, on home oxygen therapy Chronic ulcer of great toe of left foot Closed head injury Congestive heart failure (CHF) COPD (chronic obstructive pulmonary disease) Current use of insulin Decubitus ulcer of dorsum of foot, stage 2 Decubitus ulcer of left heel, stage 2 Decubitus ulcer of left heel, stage 3 Decubitus ulcer, heel, left, unstageable Depression Diabetes mellitus with diabetic polyneuropathy Diabetes type 2, controlled Diabetic foot ulcers Diverticulitis Dry gangrene Essential hypertension Former smoker History of amputation of left great toe History of non-ST elevation myocardial infarction (NSTEMI) (02/24/17) Hyperlipidemia Hypothyroid Morbid obesity Multiple wounds Myocardial infarct Non-rheumatic tricuspid valve insufficiency Nondisplaced fracture of distal phalanx of right great toe, initial encounter for closed fracture Nonrheumatic mitral (valve) insufficiency Obesity Obstructive sleep apnea On home O2 Renal insufficiency Secondary pulmonary arterial hypertension Thrombocytopenia Type 2 diabetes mellitus Vitamin D deficiency Home Medications aspirin 81 mg tablet,delayed release (Adult Aspirin Regimen) 81 mg PO DAILY heart 05/17/21 [History Last Taken 12/28/21] metoprolol succinate 50 mg tablet,extended release 24 hr 50 mg PO DAILY BLOOD PRESSURE 11/08/21 [History Last Taken 12/27/21] levothyroxine 100 mcg tablet (Synthroid) 100 mcg PO DAILY THYROID 12/13/21 [History Last Taken 12/28/21] montelukast 10 mg tablet 10 mg PO QHS ALLERGIES 12/13/21 [History Last Taken 12/27/21] sennosides 8.6 mg-docusate sodium 50 mg tablet (Senna-S) 1 tab PO BID STOOL SOFTNER 12/13/21 [History Last Taken 12/27/21] trazodone 100 mg tablet 150 mg PO QHS SLEEP 12/13/21 [History Last Taken 12/27/21] albuterol sulfate 90 mcg/actuation aerosol inhaler 2 puff inhalation 4X/DAY PRN PRN Shortness Of Breath Or Wheezing 12/19/21 [History Last Taken Unknown] acetaminophen 325 mg tablet (Tylenol) 650 mg PO Q6H PRN PRN Pain 1-10 Or Fever >100.7 #0 tabs 12/21/21 [Rx Last Taken 12/27/21] arginine 7 gram-glutam 7 gram-CaHMB 1.5 [id number] oral pwd pkt (Say (with collagen)) 1 packet PO BIDCM #0 ea 12/21/21 [Rx Last Taken 12/27/21] ferrous sulfate 325 mg (65 mg iron) tablet (FeroSul) 325 mg PO LUNCH SUPPLEMENT 12/28/21 [History Last Taken 12/27/21] fluconazole 200 mg tablet 400 mg PO DAILY 12/28/21 [History Last Taken Unknown] insulin lispro 100 unit/mL subcutaneous pen (Humalog KwikPen (U-100) Insulin) 10 unit subcut TIDAC DIABETES 12/28/21 [History Last Taken 12/27/21] nystatin 100,000 unit/gram topical powder (Nyamyc) 1 applic topical TID IRRITATION 12/28/21 [History Last Taken 12/28/21] omeprazole 40 mg capsule,delayed release 40 mg PO BID GERD 12/28/21 [History Last Taken 12/27/21] polyethylene glycol 3350 17 gram oral powder packet 17 g PO DAILY CONSTIPATION 12/28/21 [History Last Taken 12/27/21] paroxetine HCl 20 mg tablet (Paxil) 20 mg PO DAILY 01/12/22 [History Last Taken Unknown] mirtazapine 30 mg tablet 15 mg PO QHS 02/17/22 [History Last Taken Unknown] apixaban 5 mg tablet (Eliquis) 5 mg PO BID #0 tabs 02/24/22 [Rx Last Taken Unknown] bumetanide 2 mg tablet 2 mg PO TID #0 tabs 02/24/22 [Rx Last Taken Unknown] insulin detemir U-100 100 unit/mL (3 mL) subcutaneous pen (Levemir FlexTouch U- 100 Insulin) 25 unit (0.25 mL) subcut QHS blood sugar #15 mL 02/24/22 [Rx Last Taken 12/27/21] potassium chloride 20 mEq tablet,extended release(part/cryst) (Klor-Con M) 20 meq PO DAILYCM #0 tabs 02/24/22 [Rx Last Taken Unknown] gabapentin 100 mg capsule 300 mg PO TID NERVE PAIN 03/23/22 [History Last Taken Unknown] meloxicam 7.5 mg tablet 7.5 mg DAILY 03/31/22 [History Last Taken Unknown] Allergy/AdvReac Type Severity Reaction Status Date / Time doxycycline Allergy NEEDS Verified 03/31/22 06:04 FOLLOW-UP latex Allergy NEEDS Verified 03/31/22 06:04 FOLLOW-UP Sulfa (Sulfonamide Allergy Anaphylaxis Verified 03/31/22 06:04 Antibiotics) sulfur dioxide Allergy Anaphylaxis Verified 03/31/22 06:04 oxycodone AdvReac Other Verified 03/31/22 06:04 Family History Grandmother Diabetes Mother Heart disease Surgical History H/O right heart catheterization History of cataract surgery History of coronary artery stent placement (02/24/17) History of heart artery stent Tubal ligation status Social History household members: none housing: other details: [facility] Living. Smoking Status: Former smoker how long ago did patient quit smokin alcohol intake: former year quit: 1999 substance use type: does not use caffeine: Yes Type: carbonated beverages and tea ROS ROS ED Constitutional Constitutional ED: Denies chills or fever(s) ENT ENT ED: Denies sore throat Cardiovascular Cardiovascular: Denies chest pain Respiratory/Chest Respiratory/Chest: Denies cough or dyspnea Gastrointestinal Gastrointestinal: Denies abdominal pain, diarrhea, nausea or vomiting Genitourinary Genitourinary ED: Denies dysuria Musculoskeletal Musculoskeletal: Denies myalgias Integumentary Denies rash Neurologic Neurologic: Reports weakness; Denies headache(s) Hematologic/Lymphatic Hematologic/Lymphatic: Reports easy bleeding and easy bruising EXAM Physical Exam Const Vital Signs: 03/31/22 05:47 03/31/22 05:52 03/31/22 06:31 Temperature 97.5 F L Temperature Source Temporal Pulse Rate 80 Respiratory Rate 16 16 Blood Pressure 115/63 Blood Pressure Mean 80 Pulse Ox 77 100 Oxygen Delivery Method Room Air Nasal Cannula Nasal Cannula Oxygen Flow Rate (L/min) 6 4 Positive well nourished, well developed and obese General Appearance ED: well developed Nutritional Appearance: obese HEENT Reports dry mucous membranes HEENT Narrative: No tongue or lip swelling no oral lesions no airway edema or compromise Mouth ED: Yes dry mucous membranes Mouth: dry mucous membranes Eyes PERRL and EOMs intact bilaterally General Eye ED: Negative for scleral icterus Neck supple Neck Narrative: No nuchal rigidity or meningeal signs Resp normal respiratory effort Resp Narrative: Breath sounds are diminished throughout with faint expiratory wheeze but otherwise no nasal flaring retractions tachypnea or accessory muscle use Cardio regular rate and regular rhythm Rate: other Other Details: Radial pulses are plus 2 out of 4 bilaterally are equal and symmetric GI normal to inspection, nondistended, normoactive bowel sounds, non-tender, non- distended and no masses GI Narrative: Obese soft nontender nondistended with normoactive bowel sounds no voluntary guarding or rigidity. No pulsatile mass Auscultation: normoactive bowel sounds Palpation: soft Extremity Extremity Narrative: Patient has chronic wounds to the bilateral lower legs there is amputation of the left toes which is chronic in nature secondary to history of previous osteomyelitis Neuro CN's II-XII intact bilaterally Neuro Narrative: Patient is mildly obtunded with GCS of 14 but will awake to voice and respond appropriately. Psych Psych Narrative: Patient has a flat affect Skin Skin Narrative: Soft tissue changes such as chronic stasis changes and chronic wounds as documented above General Skin Exam: Negative for jaundice MDM MDM MDM Narrative Medical decision making narrative: Patient presented to the ER at her baseline mental status with stable vital. Nursing reported that her blood sugar was low at 49 and they gave her glucose. Upon arrival her mental status is normal consistent with this and repeat blood sugar check shows a value that is normal at 108. The patient states she does not take her medication on her own and receives them from the detention staff and therefore my concern for a extra ingestion or deliver overdose is low and I do not feel there is need for further testing. The patient was watched in the ER for 2 hours and on recheck her blood sugar remains normal at 102 and this is without patient receiving food or further sugar in the ER. Therefore at this time her vitals are stable her blood sugar is maintaining a normal value and her mental status is at her baseline and therefore there is no need for further evaluation in the ER and she is otherwise safe for discharge Lab Data Attestation: I reviewed the patient's lab results. Labs: Laboratory Results - last 24 hr 03/31/22 03/31/22 06:07 07:31 POC Glucose 108 H 102 Discharge Plan Triage Chief Complaint: Alt LOC ED Provider: Portillo Mota Dx/Rx/DC Orders Clinical Impression: Hypoglycemia, Diabetes mellitus, Debility, Diabetic polyneuropathy, Chronic obstructive pulmonary disease Instructions: Hypoglycemia (Low Blood Sugar) Prescriptions: No Action aspirin [Adult Aspirin Regimen] 81 mg tablet,delayed release (DR/EC) 81 mg PO DAILY metoprolol succinate 50 mg tablet extended release 24 hr 50 mg PO DAILY sennosides-docusate sodium [Senna-S] 8.6-50 mg Tablet 1 tab PO BID levothyroxine [Synthroid] 100 mcg tablet 100 mcg PO DAILY trazodone 100 mg tablet 150 mg PO QHS montelukast 10 mg tablet 10 mg PO QHS albuterol sulfate 90 mcg/actuation HFA aerosol inhaler 2 puff INHALATION 4X/DAY PRN PRN (Reason: Shortness Of Breath Or Wheezing) Label Comments: 2 PUFFS BY MOUTH FOUR TIMES A DAY NEEDED acetaminophen [Tylenol] 325 mg Tablet 650 mg PO Q6H PRN PRN (Reason: Pain 1-10 Or Fever >100.7) Qty: 0 0RF Say (with collagen) 7-7-1.5 gram Powder In Packet 1 packet PO BIDCM Qty: 0 0RF gabapentin 100 mg capsule 300 mg PO TID fluconazole 200 mg Tablet 400 mg PO DAILY omeprazole 40 mg Capsule,Delayed Release(Dr/Ec) 40 mg PO BID polyethylene glycol 3350 17 gram powder in packet 17 g PO DAILY ferrous sulfate [FeroSul] 325 mg (65 mg iron) tablet 325 mg PO LUNCH nystatin [Nyamyc] 100,000 unit/gram powder 1 applic topical TID Protocol: *Topical Application Instructions APPLICATION INSTRUCTIONS: apply to groin tid for redness insulin lispro [Humalog KwikPen Insulin] 100 unit/mL insulin pen 10 unit subcut TIDAC paroxetine HCl [Paxil] 20 mg Tablet 20 mg PO DAILY mirtazapine 30 mg tablet 15 mg PO QHS bumetanide 2 mg Tablet 2 mg PO TID Qty: 0 0RF potassium chloride [Klor-Con M20] 20 mEq Tablet,Er Particles/Crystals 20 meq PO DAILYCM Qty: 0 0RF Eliquis 5 mg Tablet 5 mg PO BID Qty: 0 0RF Levemir FlexTouch U-100 Insuln 100 unit/mL (3 mL) insulin pen 25 unit SUBCUT QHS Qty: 15 0RF meloxicam 7.5 mg tablet 7.5 mg DAILY Label Comments: 1 TABLET BY MOUTH DAILYTDX: Primary Care Provider: Geovanna Mott [facility]ISTER[facility] Referrals: Geovanna Mott [facility]ISTER[facility]URS[facility], [facility] [Primary Care Provider] - Disposition Disposition: Home, Self Care
[2022-03-31 06:26] LABS: Bedside Glucose 108 mg/dL (74-106)
[2022-03-31 06:31] VITALS: RESP 16; O2SAT 100
[2022-03-31 07:50] LABS: Bedside Glucose 102 mg/dL (74-106)
--- NOTE | 2022-03-31 07:55 | ED.RN ---
[facility] 1168
[2022-03-31 08:00] VITALS: BP 119/59; PULSE 68; RESP 26; O2SAT 100
== END 2022-03-31 08:36 | disposition home or self-care (01) ==
PROVIDERS: Emergency Provider Emergency Medicine; PCP Nurse Practitioner Adult Health; Visit Provider Emergency Medicine
DX: E11.649 Type 2 diabetes mellitus with hypoglycemia without coma (principal); J44.9 Chronic obstructive pulmonary disease, unspecified; I50.32 Chronic diastolic (congestive) heart failure; I11.0 Hypertensive heart disease with heart failure; E11.42 Type 2 diabetes mellitus with diabetic polyneuropathy; E78.5 Hyperlipidemia, unspecified; Z87.891 Personal history of nicotine dependence; R53.81 Other malaise; I25.10 Atherosclerotic heart disease of native coronary artery without angina pectoris; E66.9 Obesity, unspecified
CPT/HCPCS: 99284; 82962

== ENCOUNTER 2022-03-31 11:41 | Inpatient (IN) | payer MEDICARE, MEDICAID, SELFPAY ==
[2022-03-31] VITALS (17 sets, daily range): BP systolic 75–130; BP diastolic 36–116; PULSE 73–113; RESP 14–28; TEMP 35.7–36.8; O2SAT 91–98; BMI 32.3; BMI 31.8
--- OUTSIDE RECORDS SUMMARY | 2022-03-31 11:48 | XMS RPT_ITS | CCD ---
:1955 Author Organization [facility] Care Team Providers Name Role Phone CHEPE BALLESTEROS Admitting Unavailable MARY DIAZ Attending Unavailable Augie Romero Unavailable Augie Mccrary Unavailable Unavailable Zena Coronado Unavailable Unavailable Augie Romero MD Unavailable Unavailable Augie Romero Unavailable Unavailable Zena Coronado MD Unavailable Unavailable Allergies Allergy Reported Allergy Type Date of Reaction(s) Facility Classification Allergen(s) Onset HMG-CoA Reductase Inhibitors (statins) atorvastatin Drug Allergy Myalgia [facility] (1 source) Work Phone: Sulfonamides (antibiotic) Sulfonamides Drug Allergy [facility] (2 sources) (Antibiotic); Work Phone : Translations: [Sulfa Drugs] atorvastatin; Drug Allergy Myalgia [facility] (5 sources) Translations: 8 [facility] [ATORVASTATIN] [facility] Doxycycline; Drug Allergy [facility] (1 source) Translations: 5 [facility] [DOXYCYCLINE] [facility] Latex; Propensity to [facility] (1 source) Translations: adverse 5 [facility] [LATEX] reactions to [facility] drug Repository (disorder) Sulfonamides Propensity to [facility] (1 source) (Antibiotic); adverse 0 [facility] Translations: reactions to [facility] [[facility]ULFA drug Repository (SULFONAMIDE (disorder) ANTIBIOTICS)] SULFATE SALT; Propensity to [place] [facility] (1 source) Translations: adverse 7 [facility] [SULFATE SALT] reactions to [facility] drug Repository (disorder) Sulfonamides Allergy to [facility] (4 sources) (Antibiotic) drug (finding) Work Ph one: Sulfonamides Allergy to [facility] (4 sources) (Antibiotic) drug (finding) Work Ph one: Medications Completed/Discontinued Medications Medication Drug Class(es) Dates Sig (Normalized) Sig (Orig inal) [id number] actuat albuterol 0.09 mg/actuat metered d [...] rt : 07-Feb-2015 Active polyethylene glycol 3350 11135 mg powder for oral solution O smotic [...] [Coronary atherosclerosis of unspecified type of vessel, [place] or graft] Deficiency and other anemia Anemia; [...] sources) of drug therapy; Translations: [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 [address] ease fax results to [phone]. Assoc DX: J45.909. - COMPOUNDED PRESCRIPTION Please dispense disability placard. Expiration date: . DX: Coronary artery disease I25.10. - aspirin, enteric coated (ASPIRIN, ENTERIC COATED) 81 mg EC tablet Take 1 tablet by mouth once daily. - fluticasone (FLONASE) 50 mcg/actuation nasal spray Use 1 [place] in each nostril daily at bedtime. - [...] for 3 months anxiety = telephone call [phone]. A telephone visit (audio onl y) between [...] chronic, also stable 'Scores and Scales' PHQ-9 [id number] 01:45PM PHQ-9 Total Score (Please update problem [...] of Immunization due (V05.9) (Z23) History of detention current use of opiate analgesic ( V58.69) [...] 1/2 TAB DURING THE DAY NEEDED; Therapy: [id number] to (Evaluate:[id number]) Requested f or: [id number]; Last Rx:[id number] (more content not included)... Office Visit (Family [...] breath, wheezing)- 2) Have you returned from [facility] from [place] OR outside of the in the last [...] having little energy - more than h nursing home the days 5. Poor appetite or overeating [...] of Immunization due (V05.9) (Z23) History of detention current use of opiate analgesic ( V58.69) (Z79.891) History of Opiate analgesic use agreement exists (more content not included)... TAIWO - Automatic [place] Ari on 07-13-2019 TAIWO - Automatic [place] [facility] Normal [employer] [place], [place] MONIQUE LINCOLN January Date of Female Sex [id number] [place] [address] AddressEnglish (preferred) Language White Race Not or Ethnicity Summary of Care Clinical Content Allergies and Adverse Reacti ons <#LO1IQMSU> Encounters <#SR1GDIGT> Family History <#HX1RMVSL> Functional Status <#YR1Z1QJC> Immunization <#TN1HW6OB> Instructions <#ID0ER PEK> Interventions Provided <#EI8JBWIT> Medications <#TH8NUZKR> Past Medical History <#QE4L96FF> Plan of Care <#PM7AJYCS> Problems <#GS1PQFMY> Procedures <#ER0F7GYQ> Results <#DF9HMPOS> Social History <#WV2T1YXR> Vital Signs <#ZA7NGZQT> Other Document Details Health Care Providers Functional [...] 0 Augie Romero MD 20 ML Vial [place] Ultra Blue STRP Quantity: 255 Refills: 0 Star t : 12-Jun-2012 traZODone HCl - 100 MG Oral Tablet TAKE 1 TABLET BY MOUTH EVERYDAY AT BEDTIME Quantity: 90 Refills: 3 Augie Romero MD Start : 20-Sep-2012 Storehouse Ultra Mini w/Device Kit Quantity: 1 Refills: [...] HbA1c (Bld) [Mass fraction] 8.6 % 0 [facility] Work Phone: COMPREHENSIVE PANEL on 07-18-2018 Albumin [Mass/Vol] 3.7 g/dL Normal 3.4 - 5.0 [facility] Comment on above: Performed By: #### CMP #### [facility] [address] [place] [address] ALP [Catalytic activity/Vol] 109 U/L Normal 33 - 136 [facility] Comment on above: Performed By: #### CMP #### [facility] [address] [place] [address] ALT [Catalytic activity/Vol] 17 U/L Normal 7 - 45 [facility] Comment on above: Result Comment: Patients sally ated with Sulfasalazine may generate falsely decreased results fo r ALT. Performed By: #### CMP #### [facility] [address] [place] [address] Anion gap [Moles/Vol] 14 mmol/L Normal 10 - 20 [facility] Comment on above: Performed By: #### CMP #### [facility] [address] [place] [address] AST [Catalytic activity/Vol] 19 U/L Normal 9 - 39 [facility] Comment on above: Performed By: #### CMP #### [facility] [address] [place] [address] Bilirubin [Mass/Vol] 0.5 mg/dL Normal 0.0 - 1.2 [facility] Comment on above: Performed By: #### CMP #### [facility] [address] [place] [address] Calcium [Mass/Vol] 9.7 mg/dL Normal 8.6 - 10.6 [facility] Comment on above: Performed By: #### CMP #### [facility] [address] [place] [address] Chloride [Moles/Vol] 99 mmol/L Normal 98 - 107 [facility] Comment on above: Performed By: #### CMP #### [facility] [address] [place] [address] Creatinine [Mass/Vol] 0.81 mg/dL Normal 0.50 - 1.05 [facility] Comment on above: Performed By: #### CMP #### [facility] [address] [place] [address] GFR- AM. >60 Normal >60 [facility] Comment on above: Result Comment: CALCULATIONS OF ESTIMATED GFR ARE PERFORMED USING THE MDRD STUDY EQUATIO N FOR THE IDMS-TRACEABLE CREATININE ME THODS. CLIN CHEM 2007;53:766-72 Performed By: #### CMP #### [facility] [address] [place] [address] GFR-NON AM. >60 Normal >60 [facility] Comment on above: Performed By: #### CMP #### [facility] [address] [place] [address] Glucose [Mass/Vol] 173 mg/dL High 74 - 99 [facility] Comment on above: Performed By: #### CMP #### [facility] [address] [place] [address] HCO3 (Bld) [Moles/Vol] 33 mmol/L High 21 - 32 [facility] Comment on above: Performed By: #### CMP #### [facility] [address] [place] [address] Potassium [Moles/Vol] 3.3 mmol/L Low 3.5 - 5.3 [facility] Comment on above: Performed By: #### CMP #### [facility] [address] [place] [address] Protein [Mass/Vol] 6.7 g/dL Normal 6.4 - 8.2 [facility] Comment on above: Performed By: #### CMP #### [facility] [address] [place] [address] Sodium [Moles/Vol] 143 mmol/L Normal 136 - 145 [facility] Comment on above: Performed By: #### CMP #### [facility] [address] [place] [address] Urea nitrogen [Mass/Vol] 13 mg/dL Normal 6 - 23 [facility] Comment on above: Performed By: #### CMP #### [facility] [address] [place] [address] LIPID PANEL (CORONARY RISK 2) on 2018 Cholesterol [Mass/Vol] 176 mg/dL Normal 0 - 199 [facility] Comment on above: Result Comment: . [...] Performed By: #### LIPID ### # [facility] [address] [place] [address] Cholesterol in HDL [Mass/Vol] 34.0 mg/dL Abnormal [facility] Comment on above: Result Comment: . AGE VERY LOW LOW NORMAL HIGH 0-19 Y < 35 < 40 40-45 ---- 20-24 Y ---- < 40 >45 ---- >24 Y ---- < 40 40-60 >60 . Performed By: #### LIPID ### # [facility] [address] [place] [address] Cholesterol in LDL [Mass/Vol] 109 mg/dL High 0 - 99 [facility] Comment on above: Result Comment: . NEAR BORD AGE DESIRABLE OPTIMAL HIGH H IGH VERY HIGH 0-19 Y 0 - 109 --- 110-129 > /= 130 ---- 20-24 Y 0 - 119 --- 120-159 >/= 160 ---- >24 Y 0 - 99 100-129 130-159 160-189 >/=190 . Performed By: #### LIPID ### # [facility] [address] [place] [address] Cholesterol in VLDL [Mass/Vol] 33 mg/dL Normal 0 - 40 [facility] Comment on above: Performed By: #### LIPID ### # [facility] [address] [place] [address] Cholesterol.total/Cholesterol in HDL 5.2 {ratio} Abnormal [facility] [Mass ratio] [place] Comment on above: Result Comment: REF VALUES DESIRABLE < 3.4 HIGH RISK > 5.0 Performed By: #### LIPID ### # [facility] [address] [place] [address] Triglyceride [Mass/Vol] 164 mg/dL High 0 - 149 [facility] Comment on above: Result Comment: . [...] dosing. Performed By: #### LIPID ### # [facility] [address] [place] [address] CBC on 07-17-2018 Erythrocyte distribution width 13.5 % Normal 11.5 - 14. 5 [facility] (RBC) [Ratio] Comment on above: Performed By: #### CBC #### [facility] [address] [place] [address] Hematocrit (Bld) [Volume 39.2 % Normal 36.0 - 46.0 [facility] fraction] Comment on above: Performed By: #### CBC #### [facility] [address] [place] [address] Hemoglobin (Bld) [Mass/Vol] 12.3 g/dL Normal 12.0 - 16.0 [facility] Comment on above: Performed By: #### CBC #### [facility] [address] [place] [address] MCHC (RBC) [Mass/Vol] 31.4 g/dL Low 32.0 - 36.0 [facility] Comment on above: Performed By: #### CBC #### [facility] [address] [place] [address] MCV (RBC) [Entitic vol] 95 fL Normal 80 - 100 [facility] Comment on above: Performed By: #### CBC #### [facility] [address] [place] [address] Nucleated RBC/100 WBC (Bld) 0.0 /100 WBC Normal 0.0-0.0 [facility] [Ratio] Comment on above: Performed By: #### CBC #### [facility] [address] [place] [address] Platelets (Bld) [#/Vol] 193 10*3/uL Normal 150 - 450 [facility] Comment on above: Performed By: #### CBC #### [facility] [address] [place] [address] RBC (Bld) [#/Vol] 4.12 x10E12/L Normal 4.00 - 5.20 [facility] Comment on above: Performed By: #### CBC #### [facility] [address] [place] [address] WBC (Bld) [#/Vol] 8.0 10*3/uL Normal 4.4 - 11.3 [facility] Comment on above: Performed By: #### CBC #### [facility] [address] [place] [address] TSH on 07-17-2018 TSH Qn 3.18 m[IU]/L Normal 0.44 - 3.98 [facility] Comment on above: Result Comment: TSH testing is performed using different testing methodology at [facility] than at other [facility]. Direct res ult comparisons should only be made within the same method. . Patients receiving more than 5 mg/day of biotin may have interference in test results. A sample sh ould be taken no sooner than eight hours after previous dose. Contact [phone] for additional information. Performed By: #### TSH2 #### [facility] [address] [place] [address] Basic Metabolic Panl on 04-21-2018 Anion gap molar conc 13 mmol/L Normal 9-18 [facility] Comment on above: Performed By: #### CBC, BMP ####[facility] [address] [place] [address] 0 Calcium mass conc 9.4 mg/dL Normal 8.5-10.2 [facility] pital Comment on above: Performed By: #### CBC, BMP ####[facility] [address] [place] [address] 0 Chloride molar conc 101 mmol/L Normal 97-105 [facility] ospital Comment on above: Performed By: #### CBC, BMP ####[facility] [address] [place] [address] 0 CO2 molar conc 24 mmol/L Normal 22-30 [facility] Comment on above: Performed By: #### CBC, BMP ####[facility] [address] [place] [address] 0 Creatinine mass conc 0.98 mg/dL High 0.58-0.96 [facility] Comment on above: Performed By: #### CBC, BMP ####[facility] [address] [place] [address] 0 eGFR- Amer. >60 Normal [facility] Comment on above: Performed By: #### CBC, BMP ####[facility] [address] [place] [address] 0 GFR/1.73 sq M predicted among non-blacks MDRD vol 58 . Norm al [facility] rate/area (S/P/Bld) Comment on above: Result Comment: [...] actual GFR. Performed By: #### CBC, BMP ####[facility] [address] [place] [address] 0 Glucose mass conc 258 mg/dL High 74-99 [facility] pital Comment on above: Result Comment: The [place] Diabetes Association (ADA) provides guidance for cutoff [...] for diagnosis of diabetes. Reference: Standards of [facility] Care in Diabetes 2016, [place] [employer] Association. Diabetes Care. 2016.39(Suppl 1). Performed By: #### CBC, BMP ####[facility] [address] [place] [address] 0 Potassium molar conc 4.3 mmol/L Normal 3.7-5.1 [facility] Comment on above: Performed By: #### CBC, BMP ####[facility] [address] [place] [address] 0 Sodium molar conc 138 mmol/L Normal 136-144 [facility] Comment on above: Performed By: #### CBC, BMP ####[facility] [address] [place] [address] 0 Urea nitrogen mass conc 14 mg/dL Normal 7-21 [facility] Comment on above: Performed By: #### CBC, BMP ####[facility] [address] [place] [address] 0 CBC on 04-21-2018 Erythrocyte distribution width Ratio (RBC) 13.1 % Normal 11.5-15.0 [facility] Comment on above: Performed By: #### CBC, BMP ####[facility] [address] [place] [address] 0 Hematocrit Volume Fraction (Bld) 33.3 % Low 36.0-46. 0 [facility] Comment on above: Performed By: #### CBC, BMP ####[facility] [address] [place] [address] 0 Hemoglobin mass conc (Bld) 10.7 g/dL Low 11.5-15.5 [facility] Comment on above: Performed By: #### CBC, BMP ####[facility] [address] [place] [address] 0 MCH Entitic mass (RBC) 31.8 pG Normal 26.0-34.0 [facility] Comment on above: Performed By: #### CBC, BMP ####[facility] [address] [place] [address] 0 MCHC mass conc (RBC) 32.1 g/dL Normal 30.5-36.0 [facility] Comment on above: Performed By: #### CBC, BMP ####[facility] [address] [place], [place] [address] 0 MCV Entitic volume (RBC) 98.8 fL Normal 80.0-100.0 [facility] Comment on above: Performed By: #### CBC, BMP ####[facility] [address] [place] [address] 0 Platelet mean volume Entitic volume (Bld) 11.0 fL Normal 9.0-12.7 [facility] Comment on above: Performed By: #### CBC, BMP ####[facility] [address] [place] [address] 0 Platelets #/vol (Bld) 132 10*3/uL Low 150-400 [facility] Comment on above: Performed By: #### CBC, BMP ####[facility] [address] [place] [address] 0 RBC #/vol (Bld) 3.37 10*6/uL Low 3.90-5.20 [facility] Comment on above: Performed By: #### CBC, BMP ####[facility] [address] [place] [address] 0 WBC #/vol (Bld) 5.88 10*3/uL Normal 3.70-11.00 [facility] Comment on above: Performed By: #### CBC, BMP ####[facility] [address] [place] [address] 0 CNCO on 04-21-2018 CNCO Letter Text Normal [facility] April 21, 2018 Monique Lincoln 1989 [address] [facility] [address] Dear Ms. Lincoln, The nurses and staff of [facility] hope this woodrow er finds you feeling [...] comments, questions or concerns about your [facility] stay, please feel free to contact [...] participation and thank you for choosing the [facility] for your health needs. Sincerely, Nurse Net Washer: Emma Bass RN ([phone]) [facility] Unit: 2 South Basic Metabolic Panl on 04-20-2018 Anion gap molar conc 7 mmol/L Low 9-18 [facility] Comment on above: Performed By: #### CBC, BMP ####[facility] [address] [place] [address] 0 Calcium mass conc 9.1 mg/dL Normal 8.5-10.2 [facility] Comment on above: Performed By: #### CBC, BMP ####[facility] [address] [place] [address] 0 Chloride molar conc 101 mmol/L Normal 97-105 [facility] Comment on above: Performed By: #### CBC, BMP ####[facility] [address] [place] [address] 0 CO2 molar conc 30 mmol/L Normal 22-30 [facility] Comment on above: Performed By: #### CBC, BMP ####[place] [address] 0 Creatinine mass conc 1.46 mg/dL High 0.58-0.96 [facility] Comment on above: Performed By: #### CBC, BMP ####[facility] [address] [place] [address] 0 eGFR- Amer. 44 Normal [facility] Comment on above: Performed By: #### CBC, BMP ####[facility] [address] [place] [address] 0 GFR/1.73 sq M predicted among non-blacks MDRD vol 36 . Norm al [facility] rate/area (S/P/Bld) Comment on above: Result Comment: eGFR (Estima ravi GFR) Units of measure: mL/min/1.73 meters squared eGFR is derived from the ree xpressed MDRD Study equation using the following parameters: serum creatinine, age, gender and race. The creatinine assay has been calibrated to be traceable to IDOH. An eGFR <60 mL/min/1.73m2 fo r >3 months is consistent with chronic kidney disease. Refer to KDOQI guidelines for clinical interpretation. In patients with unstable re nal function, e.g. those with acute kidney injury, the eGFR may not accurately reflect actual GFR. Performed By: #### CBC, BMP ####[facility] [address] [place] [address] 0 Glucose mass conc 105 mg/dL High 74-99 [facility] Comment on above: Result Comment: The [place] Diabetes Association (ADA) provides guidance for cutoff [...] for diagnosis of diabetes. Reference: Standards of [facility] Care in Diabetes 2016, [place] Diabetes Association. Diabetes Care. 2016.39(Suppl 1). Performed By: #### CBC, BMP ####[facility] [address] [place] [address] 0 Potassium molar conc 4.5 mmol/L Normal 3.7-5.1 [facility] Comment on above: Performed By: #### CBC, BMP ####[facility] [address] [place] [address] 0 Sodium molar conc 138 mmol/L Normal 136-144 [facility] Comment on above: Performed By: #### CBC, BMP ####[facility] [address] [place] [address] 0 Urea nitrogen mass conc 21 mg/dL Normal 7-21 [facility] Comment on above: Performed By: #### CBC, BMP ####[facility] [address] [place] [address] 0 CBC on 04-20-2018 Erythrocyte distribution width Ratio (RBC) 13.1 % Normal 11.5-15.0 [facility] Comment on above: Performed By: #### CBC, BMP ####[facility] [address] [place] [address] 0 Hematocrit Volume Fraction (Bld) 32.9 % Low 36.0-46. 0 [facility] Comment on above: Performed By: #### CBC, BMP ####[facility] [address] [place] [address] 0 Hemoglobin mass conc (Bld) 10.7 g/dL Low 11.5-15.5 [facility] Comment on above: Performed By: #### CBC, BMP ####[place] [address] 0 MCH Entitic mass (RBC) 32.4 pG Normal 26.0-34.0 [facility] Comment on above: Performed By: #### CBC, BMP ####[place] [address] 0 MCHC mass conc (RBC) 32.5 g/dL Normal 30.5-36.0 [facility] Comment on above: Performed By: #### CBC, BMP ####[place] [address] 0 MCV Entitic volume (RBC) 99.7 fL Normal 80.0-100.0 [facility] Comment on above: Performed By: #### CBC, BMP ####[place] [address] 0 Platelet mean volume Entitic volume (Bld) 11.1 fL Normal 9.0-12.7 [facility] Comment on above: Performed By: #### CBC, BMP ####[facility] [address] [place] [address] 0 Platelets #/vol (Bld) 134 10*3/uL Low 150-400 [facility] Comment on above: Performed By: #### CBC, BMP ####[facility] [address] [place] [address] 0 RBC #/vol (Bld) 3.30 10*6/uL Low 3.90-5.20 [facility] devorah Comment on above: Performed By: #### CBC, BMP ####[facility] [address] [place] [phone] 0 WBC #/vol (Bld) 6.89 10*3/uL Normal 3.70-11.00 [facility] Comment on above: Performed By: #### CBC, BMP ####[facility] [address] [place] [phone] 0 PROGRESS on 04-20-2018 Protein mass conc HNO ID: [id number] Normal [facility] Author: Mary Diaz Service: Hospital Medicine Author Type: Physician Type: Progress Notes Filed: 04/20/2018 4:31 PM Note Text: SERVICE DATE: 04/20/2018 SERVICE TIME: 4:30 PM HOSPITAL MEDICINE PROGRESS NOTE NIGHT AND WEEKEND COVERAGE: Nights: [place] [phone]. SUBJECTIVE Interval Events: Symptoms have improved. Still [...] with long-term curr ent use of insulin ([facility]) 02/11/1995 - Present Current Assessment AND Plan Assessment: Last A1c 9.1 in 01/[address] 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 Follow with [...] DAILY 04/18/181930 -- 04/18/181944 pneumatic compression stockings (ar,al) 04/18/181944 activity - mobilize patient ([place], [place]) VTE Prophylaxis: VTE prophylaxis appropriate Plan of care discussed with: Patient SIGNATURE: Mary Diaz MD PATIENT NAME: Monique arellano DATE: April 20, 2018 TIME: 4:30 PM PAGER/CONTACT #: [phone] Basic Metabolic Panl on 04-19-2018 Anion gap molar conc 15 mmol/L Normal - [facility] Comment on above: Performed By: #### CBC, BMP ####[facility] [address] [place] [address] 0 Calcium mass conc 9.1 mg/dL Normal 8.5-10.2 [facility] Comment on above: Performed By: #### CBC, BMP ####[facility] [address] [place] [address] 0 Chloride molar conc 100 mmol/L Normal 97-105 [facility] Comment on above: Performed By: #### CBC, BMP ####[facility] [address] [place] [address] 0 CO2 molar conc 28 mmol/L Normal 22-30 [facility] Comment on above: Performed By: #### CBC, BMP ####[facility] [address] [place] [address] 0 Creatinine mass conc 1.33 mg/dL High 0.58-0.96 [facility] Comment on above: Performed By: #### CBC, BMP ####[facility] [address] [place] [address] 0 eGFR- Amer. 49 Normal [facility] Comment on above: Performed By: #### CBC, BMP ####[facility] [address] [place] [address] 0 GFR/1.73 sq M predicted among non-blacks MDRD vol 40 . Norm al [facility] rate/area (S/P/Bld) Comment on above: Result Comment: [...] actual GFR. Performed By: #### CBC, BMP ####[facility] [address] [place] [address] 0 Glucose mass conc 234 mg/dL High 74-99 [facility] Comment on above: Result Comment: The [place] Diabetes Association (ADA) provides guidance for cutoff [...] for diagnosis of diabetes. Reference: Standards of [facility] Care in Diabetes 2016, [place] [employer] Association. Diabetes Care. 2016.39(Suppl 1). Performed By: #### CBC, BMP ####[facility] [address] [place] [address] 0 Potassium molar conc 4.6 mmol/L Normal 3.7-5.1 [facility] Comment on above: Performed By: #### CBC, BMP ####[facility] [address] [place] [address] 0 Sodium molar conc 143 mmol/L Normal 136-144 [facility] Comment on above: Performed By: #### CBC, BMP ####[facility] [address] [place] [address] 0 Urea nitrogen mass conc 20 mg/dL Normal 7-21 [facility] Comment on above: Performed By: #### CBC, BMP ####[facility] [address] [place] [address] 0 CASE MANAGEM on 04-19-2018 CASE MANAGEM HNO ID: [id number] Normal [facility] Author: Ariana (Kyle) KYLE Muñoz Service: [...] 19, 2018 TIME: 12:34 PM PAGER/CONTACT #: [phone] CBC on 04-19-2018 Erythrocyte distribution width Ratio (RBC) 13.3 % Normal 11.5-15.0 [facility] Comment on above: Performed By: #### CBC, BMP ####[facility] [address] [place] [address] 0 Hematocrit Volume Fraction (Bld) 36.0 % Normal 36.0-46. 0 [facility] Comment on above: Performed By: #### CBC, BMP ####[facility] [address] [place] [address] 0 Hemoglobin mass conc (Bld) 11.5 g/dL Normal 11.5-15.5 [facility] Comment on above: Performed By: #### CBC, BMP ####[place] [address] 0 MCH Entitic mass (RBC) 31.9 pG Normal 26.0-34.0 [facility] Comment on above: Performed By: #### CBC, BMP ####[place] [address] 0 MCHC mass conc (RBC) 31.9 g/dL Normal 30.5-36.0 [facility] Comment on above: Performed By: #### CBC, BMP ####[place] [address] 0 MCV Entitic volume (RBC) 99.7 fL Normal 80.0-100.0 [facility] Comment on above: Performed By: #### CBC, BMP ####[facility] [address] [place] [address] 0 Platelet mean volume Entitic volume (Bld) 11.2 fL Normal 9.0-12.7 [facility] Comment on above: Performed By: #### CBC, BMP ####[facility] [address] [place] [address] 0 Platelets #/vol (Bld) 149 10*3/uL Low 150-400 [facility] Comment on above: Performed By: #### CBC, BMP ####[facility] [address] [place] [address] 0 RBC #/vol (Bld) 3.61 10*6/uL Low 3.90-5.20 [facility] Comment on above: Performed By: #### CBC, BMP ####[facility] [address] [place] [address] 0 WBC #/vol (Bld) 9.98 10*3/uL Normal 3.70-11.00 [facility] Comment on above: Performed By: #### CBC, BMP ####[facility] [address] [place] [address] 0 NURSING PROG on 04-19-2018 Protein HNO ID: [id number] Normal [facility] Author: Magnus (Rn) KYLE [facility] conc Service: (none) Author Type: Registered Nurse Type: Nursing Progress Note Filed: 04/20/2018 4:15 AM Note Text: Nursing Progress Note Patient Name: Monique Lincoln Patient Location: [place] [address] [address] Daily Note: 2043: Patient states she feels [...] by: Magnus Merritt, RN Protein HNO ID: [id number] Normal [facility] Author: Summer (Rn) Pearl, KYLE Hospital conc Service: (none) Author Type: Registered Nurse Type: Nursing Progress Note Filed: 04/19/2018 6:39 PM Note Text: Nursing Progress Note Patient Name: Monique Lincoln Patient Location: [id number] Daily Note: 1651- Pt given insulin as ordered. aide notified RN of BS of 50. Pt eating and given juice. Notified Yvonne INVENTORY CONTROLLER. Pt asymptomatic. Wi ll re check sugar in 15 minutes. 170- Sugar re checked , reading 68. Given one more ju ice and re notified Yvonne INVENTORY CONTROLLER. Will re check BS one more time [...] on 04-19-2018 Protein mass conc HNO ID: [id number] [facility] Author: Yvonne Branham) Henrique Service: Hospital Medicine Author Type: Physician Body Worker Type: Progress Notes Filed: 04/19/2018 8:09 PM Note Text: SERVICE DATE: 04/19/2018 SERVICE TIME: 3:08 PM HOSPITAL MEDICINE PROGRESS NOTE NIGHT AND WEEKEND COVERAGE: Nights: [place] [phone]. HPI This is a 63 year old [...] her sugar at home and presented to [facility] ED instead. She reports a few [...] with long-term curr ent use of insulin ([facility]) 02/11/1995 - Present Current Assessment AND Plan Assessment: Last A1c 9.1 in 01/[address] crow outpatient Patient has been taking her insulin over the past week and this morning despite decreased appetite, nausea, and vomiting BG found to be in the 30s-40s on arrival, given D5 and started on dextrose drip which was stopped when she got to the [facility] as her blood sugars were in [...] Assessment AND Plan Assessment: Recent ECHO 02/27/2017 (post-RI) with worsening RVSP, 64 mmHg. Follow with [...] PLAN: Continue high dose statin Morbid obesity ([facility]) 03/16/2014 - Present Current Assessment AND Plan Assessment: BMI 42 PLAN: Patient counseled on diet and exercise COPD with asthma ([facility]) 02/23/2017 - Present Current Assessment AND Plan [...] DAILY 04/18/181930 -- 04/18/181944 pneumatic compression stockings ([place], [place]) 04/18/181944 activity - mobilize patient ([place]) VTE Prophylaxis: VTE prophylaxis appropriate Plan of care discussed with: Attending, Patient and RN SIGNATURE: Yvonne Duenas PA-C PATIENT NAME: Monique Wharton rd DATE: April 19, 2018 TIME: 3:08 PM PAGER/CONTACT #: [phone] ALLIED HEALTH on 04-18-2018 ALLIED HEALTH HNO ID: [id number] Normal [facility] Author: Holli (Ct) KRISS Gipson Service: (none) Author Type: Clinical Heart Surgeon Type: Allied Health Filed: 04/18/2018 5:00 PM [...] PERIPHERAL IV DATA: Inpatient - refer to [facility] RADIOLOGY DEPARTMENT: CT; Exam(s) Completed: Abdomen/P peyman SIGNATURE: KRISS Snyder PATIENT NAME: Monique mathew DATE: April 18, 2018 TIME: 4:59 PM CASE MGT INIT ASSES on 04-18-2018 CASE MGT INIT ZEN HNO ID: [id number] [facility] Author: Penny (Rn) KYLE Pate Service: (none) Author Type: Registered Nurse Type: Care Mgt Initial Assessment Filed: 04/18/2018 7:27 PM Note Text: CARE MANAGEMENT: ASSESSMENT AND DISCHARGE PLAN SERVICE DATE: 04/18/2018 SERVICE TIME: 7:00 PM certified juvenile probation officer met with patient at bedside in the [facility] department bed-9. Introduction made and role of case management china cornell Patient states he is agreeable to assessment questions . Assessment information provided by electronic medical record and patient. PRIMARY CARE PHYSICIAN: Augie Romero MD - confirmed Patient states she prefers appointments between 10 am -11 am on . 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 No Advance Directive: Current Advance Directive: Health Care Power of Attorn ey;Living Will In Chart: No Microbiology Professor Attempted to Assist with AD Completion: Y es Action: Education Provided Per Patient HCPOA Agent: Anders Lincoln - Spouse [phone] Health Literacy: 1. How often do you [...] distances. Has the Patient Been in a Longterm Facility in the Past 30 days? No SOCIAL: Living Arrangement: Home Split Level Home Lives With: Spouse Financial Resources: Disabled Primary Contact: Anders Lincoln [address] [place] [address] [facility] Relation: Spouse Supportive: Yes - Patient confirms [...] 0 I feel financially burdened by my pqj-iu-rqcdoq expens es for my prescription medication: Disagree completely - 0 Patient is categorized as low risk < 2 Patient states she manages her own medications. Spouse assists by picking up her prescriptions. Are you interested in bedside delivery of your medicat ions? No Pharmacy Preference[facility] Concerns: In the Last Month, Have [...] Needs: None FREEDOM OF CHOICE EXPLAINED: Yes [place] of Choice explained to patient POTENTIAL TRANSITION PLANS Discharge Needs: To Be Determined Patient denies any discharge needs or concerns at this time. Anticipating Home/Self Care Discharge Transportation: Family to Transport - Spouse Patient informed Care Management is available to aid i n discharge planning needs. Primary Care Physician: Augie Romero MD - [facility] ry of Care to be sent at discharge. SIGNATURE: Penny Pate RN PATIENT NAME: Monique Reyes [place] DATE: April 18, 2018 TIME: 7:00 PM PAGER/CONTACT #: [phone] CBC and Differential on 04-18-2018 Abs Baso 0.06 k/uL Normal <0.11 [facility] Comment on above: Performed By: #### CBCDIF, C K, CMP, LIPA, MG1 #### [facility] [address] [place] [address] Abs [place] 1.02 k/uL High <0.87 [facility] Comment on above: Performed By: #### CBCDIF, C K, CMP, LIPA, MG1 #### [facility] [address] [place], [place] [id number] Abs Neut 9.16 k/uL High 1.45-7.50 [facility] Comment on above: Performed By: #### CBCDIF, C K, CMP, LIPA, MG1 #### [facility] [address] [place], [place] [phone] Basophils/100 WBC (Bld) 0.5 % Normal [facility] Comment on above: Performed By: #### CBCDIF, C K, CMP, LIPA, MG1 #### [facility] [address] [place], [place] [phone] Eosinophils #/vol (Bld) 0.13 10*3/uL Normal <0.46 [facility] Comment on above: Performed By: #### CBCDIF, C K, CMP, LIPA, MG1 #### [facility] [address] Eosinophils/100 WBC (Bld) 1.1 % Normal [facility] Comment on above: Performed By: #### CBCDIF, C K, CMP, LIPA, MG1 #### [facility] [address] [place] [address] Erythrocyte distribution width Ratio (RBC) 13.1 % Normal 11.5-15.0 [facility] Comment on above: Performed By: #### CBCDIF, C K, CMP, LIPA, MG1 #### [facility] [address] [place] [address] Hematocrit Volume Fraction (Bld) 38.1 % Normal 36.0-46. 0 [facility] Comment on above: Performed By: #### CBCDIF, C K, CMP, LIPA, MG1 #### [facility] [address] [place] [address] Hemoglobin mass conc (Bld) 12.4 g/dL Normal 11.5-15.5 [facility] Comment on above: Performed By: #### CBCDIF, C K, CMP, LIPA, MG1 #### [facility] [address] [place] [address] Lymphocytes #/vol (Bld) 1.60 10*3/uL Normal 1.00-4.00 [facility] Comment on above: Performed By: #### CBCDIF, C K, CMP, LIPA, MG1 #### [facility] [address] [place], [place] [phone] Lymphocytes/100 WBC (Bld) 13.4 % Normal [facility] Comment on above: Performed By: #### CBCDIF, C K, CMP, LIPA, MG1 #### [facility] [address] [place] [address] MCH Entitic mass (RBC) 31.6 pG Normal 26.0-34.0 [facility] Comment on above: Performed By: #### CBCDIF, C K, CMP, LIPA, MG1 #### [facility] [address] [place] [phone] MCHC mass conc (RBC) 32.5 g/dL Normal 30.5-36.0 [facility] Comment on above: Performed By: #### CBCDIF, C K, CMP, LIPA, MG1 #### [facility] [address] [place] [phone] MCV Entitic volume (RBC) 97.2 fL Normal 80.0-100.0 [facility] Comment on above: Performed By: #### CBCDIF, C K, CMP, LIPA, MG1 #### [facility] [address] [place] [address] Monocytes/100 WBC (Bld) 8.5 % Normal [facility] Comment on above: Performed By: #### CBCDIF, C K, CMP, LIPA, MG1 #### [facility] [address] [place] [address] Neutrophils/100 WBC (Bld) 76.5 % Normal [facility] Comment on above: Performed By: #### CBCDIF, C K, CMP, LIPA, MG1 #### [facility] [address] [place] [address] Platelet mean volume Entitic volume (Bld) 11.0 fL Normal 9.0-12.7 [facility] Comment on above: Performed By: #### CBCDIF, C K, CMP, LIPA, MG1 #### [facility] [address] [place] [address] Platelets #/vol (Bld) 181 10*3/uL Normal 150-400 [facility] Comment on above: Performed By: #### CBCDIF, C K, CMP, LIPA, MG1 #### [facility] [address] RBC #/vol (Bld) 3.92 10*6/uL Normal 3.90-5.20 [facility] Comment on above: Performed By: #### CBCDIF, C K, CMP, LIPA, MG1 #### [facility] [address] WBC #/vol (Bld) 11.97 10*3/uL High 3.70-11.00 [facility] Comment on above: Performed By: #### CBCDIF, C K, CMP, LIPA, MG1 #### [facility] [address] [facility] [phone] CK on 04-18-2018 CK enzyme act/vol 40 U/L Low 42-196 [facility] Comment on above: Performed By: #### CBCDIF, C K, CMP, LIPA, MG1 #### [facility] [address] [facility] [phone] CT ABD/PEL W IVCON on 04-18-2018 CT ABD/PEL W IVCON * * *Final Report* * * Normal [facility] DATE OF EXAM: Apr 18 2018 5:03PM [facility] 0530 - CT ABD/PEL W IVCON / [...] Ronni austin on 04/18/2018 at 5:30 PM. Seating Captain: CONOR Transcribe Date/Time: Apr 18 2018 5:12P Dictated by : SARITHA TIJERINA MD This examination was interpreted and the report review ed and electronically signed by: SARITHA TIJERINA MD on Apr 18 2018 5:39PM EST [id number] Metabolic Panel on 04-18-2018 Albumin mass conc 3.9 g/dL Normal 3.9-4.9 [facility] pital Comment on above: Performed By: #### CBCDIF, C K, CMP, LIPA, MG1 #### [facility] [address] [place] [address] ALP enzyme act/vol 98 U/L Normal 34-123 [facility] spital Comment on above: Performed By: #### CBCDIF, C K, CMP, LIPA, MG1 #### [facility] [address] [place] [address] ALT enzyme act/vol 28 U/L Normal 7-38 [facility] spital Comment on above: Performed By: #### CBCDIF, C K, CMP, LIPA, MG1 #### [facility] [address] [place] [phone] Anion gap molar conc 10 mmol/L Normal 9-18 [facility] Comment on above: Performed By: #### CBCDIF, C K, CMP, LIPA, MG1 #### [facility] [address] [place] [phone] AST enzyme act/vol 34 U/L Normal 13-35 [facility] Comment on above: Performed By: #### CBCDIF, C K, CMP, LIPA, MG1 #### [facility] [address] [facility] [phone] Bilirubin mass conc 0.5 mg/dL Normal 0.2-1.3 [facility] Comment on above: Performed By: #### CBCDIF, C K, CMP, LIPA, MG1 #### [facility] [address] [place] [phone] Calcium mass conc 10.0 mg/dL Normal 8.5-10.2 [facility] pital Comment on above: Performed By: #### CBCDIF, C K, CMP, LIPA, MG1 #### [facility] [address] [place] [phone] Chloride molar conc 99 mmol/L Normal 97-105 [facility] ospital Comment on above: Performed By: #### CBCDIF, C K, CMP, LIPA, MG1 #### [facility] [address] [place] [phone] CO2 molar conc 33 mmol/L High 22-30 [facility] Comment on above: Performed By: #### CBCDIF, C K, CMP, LIPA, MG1 #### [facility] [address] [place] [phone] Creatinine mass conc 1.03 mg/dL High 0.58-0.96 [facility] Comment on above: Performed By: #### CBCDIF, C K, CMP, LIPA, MG1 #### [facility] [address] [place] [phone] eGFR- Amer. >60 Normal [facility] Comment on above: Performed By: #### CBCDIF, C K, CMP, LIPA, MG1 #### [facility] [address] [facility] [phone] GFR/1.73 sq M predicted among non-blacks MDRD vol 54 . Norm al [facility] rate/area (S/P/Bld) Comment on above: Result Comment: [...] CBCDIF, C K, CMP, LIPA, MG1 #### [facility] [address] [facility] [phone] Glucose mass conc 46 mg/dL Low 74-99 [facility] Comment on above: Result Comment: The [place] Diabetes Association (ADA) provides guidance for cutoff [...] for diagnosis of diabetes. Reference: Standards of [facility] Care in Diabetes 2016, [place] Diabetes Association. Diabetes Care. 2016.39(Suppl 1). No call per procedure. 04/18/18 1442 ARoberts Performed By: #### CBCDIF, C K, CMP, LIPA, MG1 #### [facility] [address] [facility] [phone] Potassium molar conc 3.5 mmol/L Low 3.7-5.1 [facility] Comment on above: Performed By: #### CBCDIF, C K, CMP, LIPA, MG1 #### [facility] [address] [facility] [phone] Protein mass conc 7.1 g/dL Normal 6.3-8.0 [facility] Comment on above: Performed By: #### CBCDIF, C K, CMP, LIPA, MG1 #### [facility] [address] [facility] [phone] Sodium molar conc 142 mmol/L Normal 136-144 [facility] Comment on above: Performed By: #### CBCDIF, C K, CMP, LIPA, MG1 #### [facility] [address] [facility] [phone] Urea nitrogen mass conc 17 mg/dL Normal 7- [facility] Comment on above: Performed By: #### CBCDIF, C K, CMP, LIPA, MG1 #### [facility] [address] [facility] [phone] ECG COMPLETE on 04-18-2018 ECG COMPLETE NAME : MONIQUE LINCOLN [facility] PID : [id number] : 1955 Gender : Female Race : ORD : [id number] Procedure Date : Apr 18 2018 13:33:36 Edit Date : Apr 19 2018 09:45:20 Diagnosis:NORMAL SINUS RHYTHM NORMAL ECG WHEN COMPARED WITH ECG OF 23-FEB-2017 15:06, NO SIGNIFICANT CHANGE WAS FOUND agree Confirmed by MD LIZETTE, SANTOSH GERONIMO ([id number]), rewrite editor ROSINA SCHRADER ([id number]) on 04/19/2018 9:45:12 AM Ventricular Rate : 78 BPM Atrial Rate : 78 BPM P-R Interval : 152 ms QRS Duration : 88 ms Q-T Interval : 394 ms QTC Calculation(Bezet) : 449 ms P Cypress : 80 degrees R Cypress : 17 degrees T [place]ress : 27 degrees Test Reason : Chest Pain Location : 1 : ER 9 Overread By : MD LIZETTEHIGH RIDGE Edited By : ROSINA SCHRADER Referred By : LIZETTE Acquired by : IFEOMA BARNETT NOTE on 04-18-2018 ED NOTE HNO ID: [id number] [facility] Author: Noah (Rn) KYLE Barnett Service: (none) Author Type: Registered Nurse Type: ED Notes Filed: 04/18/2018 4:57 PM Note Text: Pts called me into the room stating that her I V pulled out. I entered the room and the patient stated it just fell out . Pt BS on her blood draw in lab was 48. Finger stick glucose obtaine d reading 32. New IV established and D50 given. ED NOTE HNO ID: [id number] [facility] Author: Noah (Rn) KYLE Barnett Service: (none) Author Type: Registered Nurse Type: ED Notes Filed: 04/18/2018 1:40 PM Note Text: ED NOTE HNO ID: [id number] [facility] Author: Massiel (Rn) KYLE Holm Service: (none) Author Type: Registered Nurse Type: ED Notes Filed: 04/18/2018 11:24 AM Note Text: Patient presents to the ED with N/V and abd pain for a bout a week. ED PROV NOTE on 04-18-2018 Protein mass conc HNO ID: [id number] [facility] Author: Ronni Mcguire DO Service: Emergency [...] signs reviewed Triage note reviewed Placed on teletypesetter monitor Parenteral analgesia administered Medications administered morphine [...] HISTORY PHYSICAL on 04-18-2018 HISTORY HNO ID: [id number] [facility] Author: Yvonne Branham) Henrique fairchild Service: Hospital Medicine Author Type: Physician Body Worker Type: HANDP Filed: 04/18/2018 7:53 PM Note Text: Attestation signed by Chepe Ballesteros at 04/18/2018 8:57 PM [facility] STAFF PHYSICIAN NOTE OF PERSONAL INVOLVEMENT IN C ARE I have reviewed the documentation obtained and documen ravi by the team healthcare provider (medical student, fellow, re sident, nurse practitioner or physician pharmacy affairs assistant) and I personally participated in the wise components. I have discussed the case and management of the patient' s care. Acute uncomplicated diverticulitis with hypoglycemia d ue to taking regular insulin dose while having nausea/vomiting. Will observ e overnight. IV antibiotics for now and liquid diet. Chepe Ballesteros MD Hospital Medicine Staff PAGER: [phone] DATE of Service: 04/18/2018 TIME of Service: 8:56 PM SERVICE DATE: 04/18/2018 SERVICE TIME: 7:48 PM HOSPITAL MEDICINE HISTORY AND PHYSICAL PCP: Augie Romero MD NIGHT AND WEEKEND COVERAGE: Nights: [place] [phone]. SUBJECTIVE Chief Complaint: Abdominal pain HPI: This [...] She reports that early this morning she iwlcox d an episode of dizziness and diaphoresis and felt as if her blood sug ar was low, however she did not check her sugar at home and presented to [facility] ED instead. She reports a few [...] with long-term curr ent use of insulin ([facility]) 02/11/1995 - Present Current Assessment AND Plan [...] Assessment AND Plan Assessment: Recent ECHO 02/27/2017 (post-RI) with worsening RVSP, 64 mmHg. Follow with [...] DAILY 04/18/181930 -- 04/18/181944 pneumatic compression stockings ([place], [place]) 04/18/181944 activity - mobilize patient ([place]) VTE Prophylaxis: VTE prophylaxis appropriate SIGNATURE: Yvonne Duenas PA-C PATIENT NAME: Monique Wharton DATE: April 18, 2018 TIME: 7:48 PM PAGER/CONTACT #: [phone] Lipase on 04-18-2018 Lipase enzyme act/vol 20 U/L Normal 16-61 [facility] Comment on above: Performed By: #### Jeremiah CHAN K, CMP, LIPA, MG1 #### [facility] [address] [facility] [phone] Magnesium on 04-18-2018 Magnesium mass conc 1.8 mg/dL Normal 1.7-2.3 [facility] Comment on above: Performed By: #### ROCIO C K, CMP, LIPA, MG1 #### [facility] [address] [address] Rapid PCR Assay FLU on 04-18-2018 Influenza A PCR Negative Normal [facility] Comment on above: Performed By: #### FLUPCR ## ## [facility] [address] [address] Influenza B PCR Negative Normal [facility] Comment on above: Performed By: #### FLUPCR ## ## [facility] [address] [place] [address] Specimen source Nom (Unsp spec) Nasopharyngeal Swab Normal [facility] Comment on above: Performed By: #### FLUPCR ## ## [facility] [address] [place] [address] Troponin T on 04-18-2018 Troponin T.cardiac mass conc ug/L Normal 0.000-0.029 [facility] Comment on above: Performed By: #### ELVIRA #### [facility] [address] [place] [address] Urinalysis on 04-18-2018 Bilirubin, Urine Negative Normal Negative [facility] Comment on above: Performed By: #### UA ####[facility] [address] [place] [address] 0 Clarity Nom (U) Clear Normal Clear [facility] Comment on above: Performed By: #### UA ####[facility] [address] [place] [address] 0 Color Nom (U) Yellow Normal Yellow [facility] Comment on above: Performed By: #### UA ####[facility] [address] [place] [address] 0 Glucose Ql (U) Negative Normal Negative [facility] Comment on above: Performed By: #### UA ####[facility] [address] [place] [address] 0 Hemoglobin/Blood,Ur Negative Normal Negative [facility] Comment on above: Performed By: #### UA ####[facility] [address] [place] [address] 0 Ketones Ql (U) Negative Normal Negative [facility] Comment on above: Performed By: #### UA ####[facility] [address] [place] [address] 0 Leukest Negative Normal Negative [facility] Comment on above: Performed By: #### UA ####[facility] [address] [place] [address] 0 Nitrite Ql (U) Negative Normal Negative [facility] Comment on above: Performed By: #### UA ####[place] [address] 0 pH (Bld) 6.0 Normal 5.0-8.0 [facility] Comment on above: Performed By: #### UA ####[place] [address] 0 Protein mass conc (U) Negative Normal Negative [facility] Comment on above: Performed By: #### UA ####[place] [address] 0 Specific [place], Ur 1.015 Normal 1.001-1.029 [facility] Comment on above: Performed By: #### UA ####[place] [address] 0 Urobilinogen Qn (U) 0.2 Normal 0.2-1.0 [facility] Comment on above: Performed By: #### UA ####[place] [address] 0 XR CHEST 2V FRONTAL/LAT on 04-18-2018 XR CHEST 2V FRONTAL/LAT * * *Final Report* * * Normal [facility] DATE OF EXAM: Apr 18 2018 1:32PM [...] developing abnormality or acute process. [employer] ly. Seating Captain: CONOR Transcribe Date/Time: Apr 18 2018 1:36P Dictated by : JUAN ORNELAS MD This examination was interpreted and the report review ed and electronically signed by: JUAN ORNELAS MD on Apr 18 2018 1:37PM EST [id number] Encounters Encounter Date Encounter Type Care Provider Facility Start: 05-31-2020 Patient encounter Augie Romero MD [facility] procedure Work Phone: [phone] Start: 04-30-2020 Patient encounter Augie Romero MD [facility] procedure Work Phone: [phone] Start: 01-30-2020 Patient encounter Augie Romero MD [facility] procedure Work Phone: [phone] Start: 09-26-2019 Patient encounter Augie Romero MD [facility] procedure Work Phone: Start: 06-20-2019 Patient encounter [...] Phone: Start: 04-18-2018 Evaluation and [facility] End: 04-21-2018 management of inpatient Start: 02-13-2018 Patient encounter Augie Romero [facility] procedure Work Phone: Start: 01-08-2018 Patient encounter Augie Jensenlianna [facility] procedure Work Phone: Start: 09-27-2017 Patient encounter Augie Romero [facility] procedure Work Phone: Start: 07-06-2017 Patient encounter Augie Jensenlianna [facility] procedure Work Phone: Start: 06-27-2017 Patient encounter Augie Romero [facility] procedure Work Phone: Procedures Date [...] Phone: [Influenza] 12-15-2015 pneumococcal [facility], 13 valent; Work Brit ne: [...] Dates Details Instructions not documented -[facility] Work Phone: Summary Purpose Family History [...] Records Found Hospital Course Note HNO ID: [id number] Author: Mary penaloza Service: Hospital Medicine Author [...] DATE CREATED AUTHOR AUTHOR'S ORGANIZ ATION 04/22/2018 [facility] DATE CREATED AUTHOR AUTHOR'S ORGANIZATIO N 06/20/2019 [facility] DATE CREATED AUTHOR AUTHOR'S ORGANIZATIO N 07/08/2020 [facility] DATE CREATED AUTHOR AUTHOR'S ORGANIZATIO N 02/02/2021 [facility] FOR RECORDS PERTAINING TO PATIENTS WHO ARE [...] BE BASED ON THE PRIMARY CLINICAL RECORDS. [employer] provides no warranty or guarantee of the accuracy or completeness of information in this document.
--- OUTSIDE RECORDS SUMMARY | 2022-03-31 11:52 | XMS RPT_ITS | CCD ---
:1955 Author Organization [facility] Care Team Providers Name Role Phone CEHPE BALLESTEROS Admitting Unavailable MARY DIAZ Attending Unavailable Augie Romero Unavailable Augie Mccrary Unavailable Unavailable Zena Coronado Unavailable Unavailable Augie Romero MD Unavailable Unavailable Augie Romero Unavailable Unavailable Zena Coronado MD Unavailable Unavailable Allergies Allergy Reported Allergy Type Date of Reaction(s) Facility Classification Allergen(s) Onset HMG-CoA Reductase Inhibitors (statins) atorvastatin Drug Allergy [facility] (1 source) Work Phone: Sulfonamides (antibiotic) Sulfonamides Drug Allergy [facility] (2 sources) (Antibiotic); Work Phone : Translations: [Sulfa Drugs] atorvastatin; Drug Allergy Myalgia [place] (5 sources) Translations: 8 [facility] [ATORVASTATIN] [facility] Doxycycline; Drug Allergy [place] (1 source) Translations: 5 [facility] [DOXYCYCLINE] [facility] Latex; Propensity to [place] (1 source) Translations: adverse 5 [facility] [LATEX] reactions to [place] [facility] (disorder) Sulfonamides Propensity to [facility] (1 source) (Antibiotic); adverse 0 [facility] Translations: reactions to [place] [SULFA drug Repository (SULFONAMIDE (disorder) ANTIBIOTICS)] SULFATE SALT; Propensity to [place] [facility] (1 source) Translations: adverse 7 [facility] [SULFATE SALT] reactions to [place] [facility] (disorder) Sulfonamides Allergy to [facility] (4 sources) (Antibiotic) drug (finding) Work Ph one: Sulfonamides Allergy to [facility] (4 sources) (Antibiotic) drug (finding) Work Ph one: Medications Completed/Discontinued Medications Medication Drug Class(es) Dates Sig (Normalized) Sig (Orig inal) [id number] actuat albuterol 0.09 mg/actuat metered d [...] 06-Jun-2013 Active Easy Touch Lancing Device Start: iWcho weber Touch (1 source) 06-06-2013 Lancing Device [...] Refills: 0 Star t : 12-Dec-2016 Act launn PARoxetine hydrochloride 30 mg oral tablet Serotonin Start: take 2 tablets by PARoxetine HCl - (5 sources) Reuptake 02-07-2015 mouth once daily 30 MG Oral Tablet Inhibitor take 2 tablets by mouth every day Quantity: 60 Refills: 0 Augie Tijerina MD Sta rt : 07-Feb-2015 Active polyethylene glycol 3350 10423 mg powder for oral solution O smotic [...] [Coronary atherosclerosis of unspecified type of vessel, chickaloon or graft] Deficiency and other anemia Anemia; [...] sources) of drug therapy; Translations: [History of watermaster current use of opiate analgesic] NEGATED: Highlighted row has not occurred!Residual codes; unclas sified Disease Episodic (20 sources) Results Test Name Value Interpretation Reference Range Facility OBSOLETE on 05-27-2020 OBSOLETE Refill (AGCARDPOB) Normal [facility] MONIQUE Cramer ([id number]) 1955 F Medical Date Time Provider Department [...] O2 [address]. [address] ease fax results to [phone]. Assoc DX: J45.909. - COMPOUNDED PRESCRIPTION Please dispense disability placard. Expiration date: . DX: Coronary artery disease I25.10. - aspirin, enteric coated (ASPIRIN, ENTERIC COATED) 81 mg EC tablet Take 1 tablet by mouth once daily. - fluticasone (FLONASE) 50 mcg/actuation nasal spray Use 1 Arvilla in each nostril daily at bedtime. - [...] for 3 months anxiety = telephone call [phone]. A telephone visit (audio onl y) between [...] chronic, also stable 'Scores and Scales' PHQ-9 [id number] 01:45PM PHQ-9 Total Score (Please update problem [...] 1/2 TAB DURING THE DAY NEEDED; Therapy: [id number] to (Evaluate:[id number]) Requested f or: [id number]; Last Rx:[id number] (more content not included)... Office Visit (Family [...] breath, wheezing)- 2) Have you returned from [facility] from [place] OR outside of the in the last [...] having little energy - more than h assisted the days 5. Poor appetite or overeating [...] (more content not included)... TAIWO - Automatic [place] on 07-13-2019 TAIWO - [facility] [place] [facility] [employer] [place], [place] MONIQUE LINCOLN January Date of Female Sex [id number] [place] [address] AddressEnglish (preferred) Language White Race Not or Ethnicity Summary of Care Clinical Content Allergies and Adverse Reacti ons <#[id number]> Encounters <#[id number]> Family History <#NU4RQAAD> Functional Status <#RV0T8ERS> Immunization <#[id number]> Instructions <#ID0ER PEK> Interventions Provided <#EP2QYCRD> Medications <#OE8KRNRV> Past Medical History <#[id number]> Plan of Care <#RN5LOPDE> Problems <#SY0MJVTG> Procedures <#HX3G3KTR> Results <#BF5GWSKA> Social History <#JK0N7VZV> Vital Signs <#IS5ZHTSB> Other Document Details Health Care Providers Functional [...] 0 Augie Romero MD 20 ML Vial [employer] Ultra Blue STRP Quantity: 255 Refills: 0 Star t : 12-Jun-2012 traZODone HCl - 100 MG Oral Tablet TAKE 1 TABLET BY MOUTH EVERYDAY AT BEDTIME Quantity: 90 Refills: 3 Augie Romero MD Start : 20-Sep-2012 [employer] Ultra Mini w/Device Kit Quantity: 1 Refills: [...] [Mass/Vol] 3.7 g/dL Normal 3.4 - 5.0 [facility] Comment on above: Performed By: #### CMP #### [facility] [address] [place] [address] ALP [Catalytic activity/Vol] 109 U/L Normal 33 - 136 [facility] Comment on above: Performed By: #### CMP #### [facility] [address] [place] [address] ALT [Catalytic activity/Vol] 17 U/L Normal 7 - 45 [facility] Comment on above: Result Comment: Patients sally ated with Sulfasalazine may generate falsely decreased results fo r ALT. Performed By: #### CMP #### [facility] [address] [place] [address] Anion gap [Moles/Vol] 14 mmol/L Normal 10 - 20 [facility] Comment on above: Performed By: #### CMP #### [facility] [address] [place] [address] AST [Catalytic activity/Vol] 19 U/L Normal 9 - 39 [facility] Comment on above: Performed By: #### CMP #### [facility] [address] [place] [address] Bilirubin [Mass/Vol] 0.5 mg/dL Normal 0.0 - 1.2 [facility] Comment on above: Performed By: #### CMP #### [facility] [address] [place] [address] Calcium [Mass/Vol] 9.7 mg/dL Normal 8.6 - 10.6 [facility] Comment on above: Performed By: #### CMP #### [facility] [address] [place] [address] Chloride [Moles/Vol] 99 mmol/L Normal 98 - 107 [facility] Comment on above: Performed By: #### CMP #### [facility] [address] [place] [address] Creatinine [Mass/Vol] 0.81 mg/dL Normal 0.50 - 1.05 [facility] Comment on above: Performed By: #### CMP #### [facility] [address] [place] [address] GFR- AM. >60 Normal >60 [facility] Comment on above: Result Comment: CALCULATIONS OF ESTIMATED GFR ARE PERFORMED USING THE MDRD STUDY EQUATIO N FOR THE IDMS-TRACEABLE CREATININE ME THODS. CLIN CHEM 2007;53:766-72 Performed By: #### CMP #### [facility] [address] [place] [address] GFR-NON AM. >60 Normal >60 [facility] Comment on above: Performed By: #### CMP #### [facility] [address] [place] [address] Glucose [Mass/Vol] 173 mg/dL High 74 - 99 [facility] Comment on above: Performed By: #### CMP #### [facility] [address] [place] [address] HCO3 (Bld) [Moles/Vol] 33 mmol/L High 21 - 32 [facility] Comment on above: Performed By: #### CMP #### [facility] [address] [place] [address] Potassium [Moles/Vol] 3.3 mmol/L Low 3.5 - 5.3 [facility] Comment on above: Performed By: #### CMP #### [facility] [address] [place] [address] Protein [Mass/Vol] 6.7 g/dL Normal 6.4 - 8.2 [facility] Comment on above: Performed By: #### CMP #### [facility] [address] [place] [address] Sodium [Moles/Vol] 143 mmol/L Normal 136 - 145 [facility] Comment on above: Performed By: #### CMP #### [facility] [address] [place] [address] Urea nitrogen [Mass/Vol] 13 mg/dL Normal 6 - 23 [facility] Comment on above: Performed By: #### CMP #### [facility] [address] [place] [address] LIPID PANEL (CORONARY RISK 2) on 2018 Cholesterol [Mass/Vol] 176 mg/dL Normal 0 - 199 [facility] Comment on above: Result Comment: . [...] Performed By: #### LIPID ### # [facility] [address] [place] [address] Cholesterol in HDL [Mass/Vol] 34.0 mg/dL Abnormal [facility] Comment on above: Result Comment: . AGE VERY LOW LOW NORMAL HIGH 0-19 Y < 35 < 40 40-45 ---- 20-24 Y ---- < 40 >45 ---- >24 Y ---- < 40 40-60 >60 . Performed By: #### LIPID ### # [facility] [address] [place] [address] Cholesterol in LDL [Mass/Vol] 109 mg/dL High 0 - 99 [facility] Comment on above: Result Comment: . NEAR BORD AGE DESIRABLE OPTIMAL HIGH H IGH VERY HIGH 0-19 Y 0 - 109 --- 110-129 > /= 130 ---- 20-24 Y 0 - 119 --- 120-159 >/= 160 ---- >24 Y 0 - 99 100-129 130-159 160-189 >/=190 . Performed By: #### LIPID ### # [facility] [address] [place] [address] Cholesterol in VLDL [Mass/Vol] 33 mg/dL Normal 0 - 40 [facility] Comment on above: Performed By: #### LIPID ### # [facility] [address] [place] [address] Cholesterol.total/Cholesterol in HDL 5.2 {ratio} Abnormal [facility] [Mass ratio] [facility] Comment on above: Result Comment: REF VALUES DESIRABLE < 3.4 HIGH RISK > 5.0 Performed By: #### LIPID ### # [facility] [address] [place] [address] Triglyceride [Mass/Vol] 164 mg/dL High 0 - 149 [facility] Comment on above: Result Comment: . [...] dosing. Performed By: #### LIPID ### # [facility] [address] [place] [address] CBC on 07-17-2018 Erythrocyte distribution width 13.5 % Normal 11.5 - 14. 5 [facility] (RBC) [Ratio] Comment on above: Performed By: #### CBC #### [facility] [address] [place] [address] Hematocrit (Bld) [Volume 39.2 % Normal 36.0 - 46.0 [facility] fraction] Comment on above: Performed By: #### CBC #### [facility] [address] [place] [address] Hemoglobin (Bld) [Mass/Vol] 12.3 g/dL Normal 12.0 - 16.0 [facility] Comment on above: Performed By: #### CBC #### [facility] [address] [place] [address] MCHC (RBC) [Mass/Vol] 31.4 g/dL Low 32.0 - 36.0 [facility] Comment on above: Performed By: #### CBC #### [facility] [address] [place] [address] MCV (RBC) [Entitic vol] 95 fL Normal 80 - 100 [facility] Comment on above: Performed By: #### CBC #### [facility] [address] [place] [address] Nucleated RBC/100 WBC (Bld) 0.0 /100 WBC Normal 0.0-0.0 [facility] [Ratio] Comment on above: Performed By: #### CBC #### [facility] [address] [place] [address] Platelets (Bld) [#/Vol] 193 10*3/uL Normal 150 - 450 [facility] Comment on above: Performed By: #### CBC #### [facility] [address] [place] [address] RBC (Bld) [#/Vol] 4.12 x10E12/L Normal 4.00 - 5.20 [facility] Comment on above: Performed By: #### CBC #### [facility] [address] [place] [address] WBC (Bld) [#/Vol] 8.0 10*3/uL Normal 4.4 - 11.3 [facility] Comment on above: Performed By: #### CBC #### [facility] [address] [place] [address] TSH on 07-17-2018 TSH Qn 3.18 m[IU]/L Normal 0.44 - 3.98 [facility] Comment on above: Result Comment: TSH testing is performed using different testing methodology at [facility] than at other [facility]. Direct res ult comparisons should only be made within the same method. . Patients receiving more than 5 mg/day of biotin may have interference in test results. A sample sh ould be taken no sooner than eight hours after previous dose. Contact [phone] for additional information. Performed By: #### TSH2 #### [facility] [address] [place] [address] Basic Metabolic Panl on 04-21-2018 Anion gap molar conc 13 mmol/L Normal 9-18 [facility] Comment on above: Performed By: #### CBC, BMP ####[facility] [address] [place] [address] 0 Calcium mass conc 9.4 mg/dL Normal 8.5-10.2 [facility]ital Comment on above: Performed By: #### CBC, BMP ####[facility] [address] [place] [address] 0 Chloride molar conc 101 mmol/L Normal 97-105 [facility] Comment on above: Performed By: #### CBC, BMP ####[facility] [address] [place] [address] 0 CO2 molar conc 24 mmol/L Normal 22-30 [facility] Comment on above: Performed By: #### CBC, BMP ####[facility] [address] [place] [address] 0 Creatinine mass conc 0.98 mg/dL High 0.58-0.96 [facility] Comment on above: Performed By: #### CBC, BMP ####[facility] [address] [place] [address] 0 eGFR- Amer. >60 Normal [facility] Comment on above: Performed By: #### CBC, BMP ####[facility] [address] [place] [address] 0 GFR/1.73 sq M predicted among non-blacks MDRD vol 58 . Norm al [facility] rate/area (S/P/Bld) Comment on above: [...] actual GFR. Performed By: #### CBC, BMP ####[facility] [address] [place] [address] 0 Glucose mass conc 258 mg/dL High 74-99 [facility]ital Comment on above: Result Comment: The [place] [employer] (ADA) provides guidance for [...] for diagnosis of diabetes. Reference: Standards of [facility] Care in Diabetes 2016, [place] [employer]. Diabetes Care. 2016.39(Suppl 1). Performed By: #### CBC, BMP ####[facility] [address] [place] [address] 0 Potassium molar conc 4.3 mmol/L Normal 3.7-5.1 [facility] Comment on above: Performed By: #### CBC, BMP ####[facility] [address] [place] [address] 0 Sodium molar conc 138 mmol/L Normal 136-144 [facility] Comment on above: Performed By: #### CBC, BMP ####[facility] [address] [place] [address] 0 Urea nitrogen mass conc 14 mg/dL Normal 7-21 [facility] Comment on above: Performed By: #### CBC, BMP ####[facility] [address] [place] [address] 0 CBC on 04-21-2018 Erythrocyte distribution width Ratio (RBC) 13.1 % Normal 11.5-15.0 [facility] Comment on above: Performed By: #### CBC, BMP ####[facility] [address] [place] [address] 0 Hematocrit Volume Fraction (Bld) 33.3 % Low 36.0-46. 0 [facility] Comment on above: Performed By: #### CBC, BMP ####[facility] [address] [place] [address] 0 Hemoglobin mass conc (Bld) 10.7 g/dL Low 11.5-15.5 [facility] Comment on above: Performed By: #### CBC, BMP ####[facility] [address] [place] [address] 0 MCH Entitic mass (RBC) 31.8 pG Normal 26.0-34.0 [facility] Comment on above: Performed By: #### CBC, BMP ####[facility] [address] [place] [address] 0 MCHC mass conc (RBC) 32.1 g/dL Normal 30.5-36.0 [facility] Comment on above: Performed By: #### CBC, BMP ####[facility] [address] [place], [place] [address] 0 MCV Entitic volume (RBC) 98.8 fL Normal 80.0-100.0 [facility] Comment on above: Performed By: #### CBC, BMP ####[facility] [address] [place] [address] 0 Platelet mean volume Entitic volume (Bld) 11.0 fL Normal 9.0-12.7 [facility] Comment on above: Performed By: #### CBC, BMP ####[facility] [address] [place] [address] 0 Platelets #/vol (Bld) 132 10*3/uL Low 150-400 [facility] Comment on above: Performed By: #### CBC, BMP ####[facility] [address] [place] [address] 0 RBC #/vol (Bld) 3.37 10*6/uL Low 3.90-5.20 [facility] Comment on above: Performed By: #### CBC, BMP ####[facility] [address] [place] [address] 0 WBC #/vol (Bld) 5.88 10*3/uL Normal 3.70-11.00 [facility] Comment on above: Performed By: #### CBC, BMP ####[facility] [address] [place] [address] 0 CNCO on 04-21-2018 CNCO Letter Text Normal [facility] April 21, 2018 Monique Lincoln [address] [facility] [address] Dear Ms. Lincoln, The nurses and staff of [facility] hope this woodrow er finds [...] comments, questions or concerns about your [facility], please feel free to contact me, [...] participation and thank you for choosing the [facility] for your health needs. Sincerely, Nurse Transverse Abdominal Muscle Surgeon: Emma Bass RN ([phone]) [facility] Unit: 2 South Basic Metabolic Panl on 04-20-2018 Anion gap molar conc 7 mmol/L Low 9-18 [facility] Comment on above: Performed By: #### CBC, BMP ####[facility] [address] [place] [address] 0 Calcium mass conc 9.1 mg/dL Normal 8.5-10.2 [facility] Comment on above: Performed By: #### CBC, BMP ####[facility] [address] [place] [address] 0 Chloride molar conc 101 mmol/L Normal 97-105 [facility] Comment on above: Performed By: #### CBC, BMP ####[facility] [address] [place] [address] 0 CO2 molar conc 30 mmol/L Normal 22-30 [facility] Comment on above: Performed By: #### CBC, BMP ####[place] [address] 0 Creatinine mass conc 1.46 mg/dL High 0.58-0.96 [facility] Comment on above: Performed By: #### CBC, BMP ####[facility] [address] [place] [address] 0 eGFR- Amer. 44 Normal [facility] Comment on above: Performed By: #### CBC, BMP ####[facility] [address] [place] [address] 0 GFR/1.73 sq M predicted among non-blacks MDRD vol 36 . Norm al [facility] rate/area (S/P/Bld) Comment on above: Result Comment: eGFR (Estima ravi GFR) Units of measure: mL/min/1.73 meters squared eGFR is derived from the ree xpressed MDRD Study equation using the following parameters: serum creatinine, age, gender and race. The creatinine assay has been calibrated to be traceable to IDTX. An eGFR <60 mL/min/1.73m2 fo r >3 months is consistent with chronic kidney disease. Refer to KDOQI guidelines for clinical interpretation. In patients with unstable re nal function, e.g. those with acute kidney injury, the eGFR may not accurately reflect actual GFR. Performed By: #### CBC, BMP ####[facility] [address] [place] [address] 0 Glucose mass conc 105 mg/dL High 74-99 [facility] Comment on above: Result Comment: The [place] [employer] (ADA) provides guidance for [...] for diagnosis of diabetes. Reference: Standards of [facility] Care in Diabetes 2016, [place] [employer]. Diabetes Care. 2016.39(Suppl 1). Performed By: #### CBC, BMP ####[facility] [address] [place] [address] 0 Potassium molar conc 4.5 mmol/L Normal 3.7-5.1 [facility] Comment on above: Performed By: #### CBC, BMP ####[facility] [address] [place] [address] 0 Sodium molar conc 138 mmol/L Normal 136-144 [facility] Comment on above: Performed By: #### CBC, BMP ####[facility] [address] [place] [address] 0 Urea nitrogen mass conc 21 mg/dL Normal 7-21 [facility] Comment on above: Performed By: #### CBC, BMP ####[facility] [address] [place] [address] 0 CBC on 04-20-2018 Erythrocyte distribution width Ratio (RBC) 13.1 % Normal 11.5-15.0 [facility] Comment on above: Performed By: #### CBC, BMP ####[facility] [address] [place] [address] 0 Hematocrit Volume Fraction (Bld) 32.9 % Low 36.0-46. 0 [facility] Comment on above: Performed By: #### CBC, BMP ####[facility] [address] [place] [address] 0 Hemoglobin mass conc (Bld) 10.7 g/dL Low 11.5-15.5 [facility] Comment on above: Performed By: #### CBC, BMP ####[place] [address] 0 MCH Entitic mass (RBC) 32.4 pG Normal 26.0-34.0 [facility] Comment on above: Performed By: #### CBC, BMP ####[place] [address] 0 MCHC mass conc (RBC) 32.5 g/dL Normal 30.5-36.0 [facility] Comment on above: Performed By: #### CBC, BMP ####[place] [address] 0 MCV Entitic volume (RBC) 99.7 fL Normal 80.0-100.0 [facility] Comment on above: Performed By: #### CBC, BMP ####[place] [address] 0 Platelet mean volume Entitic volume (Bld) 11.1 fL Normal 9.0-12.7 [facility] Comment on above: Performed By: #### CBC, BMP ####[facility] [address] [place] [address] 0 Platelets #/vol (Bld) 134 10*3/uL Low 150-400 [facility] Comment on above: Performed By: #### CBC, BMP ####[facility] [address] [place] [address] 0 RBC #/vol (Bld) 3.30 10*6/uL Low 3.90-5.20 [facility] Comment on above: Performed By: #### CBC, BMP ####[facility] [address] [place] [phone] WBC #/vol (Bld) 6.89 10*3/uL Normal 3.70-11.00 [facility] Comment on above: Performed By: #### CBC, BMP ####[facility] [address] [place] [phone] PROGRESS on 04-20-2018 Protein mass conc HNO ID: [id number] Normal [facility] Author: Mary Diaz Service: Hospital Medicine Author Type: Physician Type: Progress Notes Filed: 04/20/2018 4:31 PM Note Text: SERVICE DATE: 04/20/2018 SERVICE TIME: 4:30 PM HOSPITAL MEDICINE PROGRESS NOTE NIGHT AND WEEKEND COVERAGE: Nights: Please contact [facility] [place] [phone]. SUBJECTIVE Interval Events: Symptoms have improved. Still [...] with long-term curr ent use of insulin ([facility]) 02/11/1995 - Present Current Assessment AND Plan Assessment: Last A1c 9.1 in 01/[address] 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 Follow with [...] DAILY 04/18/181930 -- 04/18/181944 pneumatic compression stockings ([place]) 04/18/181944 activity - mobilize patient ([place]) VTE Prophylaxis: VTE prophylaxis appropriate Plan of care discussed with: Patient SIGNATURE: Mary Diaz MD PATIENT NAME: Monique arellano DATE: April 20, 2018 TIME: 4:30 PM PAGER/CONTACT #: [phone] Basic Metabolic Panl on 04-19-2018 Anion gap molar conc 15 mmol/L Normal - [facility] Comment on above: Performed By: #### CBC, BMP ####[facility] [address] [place] [address] 0 Calcium mass conc 9.1 mg/dL Normal 8.5-10.2 [facility] Comment on above: Performed By: #### CBC, BMP ####[facility] [address] [place] [address] 0 Chloride molar conc 100 mmol/L Normal 97-105 [facility] Comment on above: Performed By: #### CBC, BMP ####[facility] [address] [place] [address] 0 CO2 molar conc 28 mmol/L Normal 22-30 [facility] Comment on above: Performed By: #### CBC, BMP ####[facility] [address] [place] [address] 0 Creatinine mass conc 1.33 mg/dL High 0.58-0.96 [facility] Comment on above: Performed By: #### CBC, BMP ####[facility] [address] [place] [address] 0 eGFR- Amer. 49 Normal [facility] Comment on above: Performed By: #### CBC, BMP ####[facility] [address] [place] [address] 0 GFR/1.73 sq M predicted among non-blacks MDRD vol 40 . Norm al [facility] rate/area (S/P/Bld) Comment on above: [...] actual GFR. Performed By: #### CBC, BMP ####[facility] [address] [place] [address] 0 Glucose mass conc 234 mg/dL High 74-99 [facility] Comment on above: Result Comment: The [place] [employer] (ADA) provides guidance for [...] for diagnosis of diabetes. Reference: Standards of [facility] Care in Diabetes 2016, [place] [employer]. Diabetes Care. 2016.39(Suppl 1). Performed By: #### CBC, BMP ####[facility] [address] [place] [address] 0 Potassium molar conc 4.6 mmol/L Normal 3.7-5.1 [facility] Comment on above: Performed By: #### CBC, BMP ####[facility] [address] [place] [address] 0 Sodium molar conc 143 mmol/L Normal 136-144 [facility] Comment on above: Performed By: #### CBC, BMP ####[facility] [address] [place] [address] 0 Urea nitrogen mass conc 20 mg/dL Normal 7-21 [facility] Comment on above: Performed By: #### CBC, BMP ####[facility] [address] [place] [address] 0 CASE MANAGEM on 04-19-2018 CASE MANAGEM HNO ID: [id number] Normal [facility] Author: Ariana (Kyle) KYLE Muñoz Service: [...] 19, 2018 TIME: 12:34 PM PAGER/CONTACT #: [phone] CBC on 04-19-2018 Erythrocyte distribution width Ratio (RBC) 13.3 % Normal 11.5-15.0 [facility] Comment on above: Performed By: #### CBC, BMP ####[facility] [address] [place] [address] 0 Hematocrit Volume Fraction (Bld) 36.0 % Normal 36.0-46. 0 [facility] Comment on above: Performed By: #### CBC, BMP ####[facility] [address] [place] [address] 0 Hemoglobin mass conc (Bld) 11.5 g/dL Normal 11.5-15.5 [facility] Comment on above: Performed By: #### CBC, BMP ####[place] [address] 0 MCH Entitic mass (RBC) 31.9 pG Normal 26.0-34.0 [facility] Comment on above: Performed By: #### CBC, BMP ####[place] [address] 0 MCHC mass conc (RBC) 31.9 g/dL Normal 30.5-36.0 [facility] Comment on above: Performed By: #### CBC, BMP ####[place] [address] 0 MCV Entitic volume (RBC) 99.7 fL Normal 80.0-100.0 [facility] Comment on above: Performed By: #### CBC, BMP ####[facility] [address] [place] [address] 0 Platelet mean volume Entitic volume (Bld) 11.2 fL Normal 9.0-12.7 [facility] Comment on above: Performed By: #### CBC, BMP ####[facility] [address] [place] [address] 0 Platelets #/vol (Bld) 149 10*3/uL Low 150-400 [facility] Comment on above: Performed By: #### CBC, BMP ####[facility] [address] [place] [address] 0 RBC #/vol (Bld) 3.61 10*6/uL Low 3.90-5.20 [facility] Comment on above: Performed By: #### CBC, BMP ####[facility] [address] [place] [address] 0 WBC #/vol (Bld) 9.98 10*3/uL Normal 3.70-11.00 [facility] Comment on above: Performed By: #### CBC, BMP ####[facility] [address] [place] [address] 0 NURSING PROG on 04-19-2018 Protein HNO ID: [id number] Normal [facility] Author: Magnus (Rn) KYLE Merritt Hospital conc Service: (none) Author Type: Registered Nurse Type: Nursing Progress Note Filed: 04/20/2018 4:15 AM Note Text: Nursing Progress Note Patient Name: Monique Lincoln Patient Location: [place] [address] [address] Daily Note: 2043: Patient states she feels [...] by: Magnus Merritt, RN Protein HNO ID: [id number] Normal [facility] Author: Summer (Rn) Pearl, KYLE Hospital conc Service: (none) Author Type: Registered Nurse Type: Nursing Progress Note Filed: 04/19/2018 6:39 PM Note Text: Nursing Progress Note Patient Name: Monique Lincoln [place] [facility] [id number] Daily Note: 1651- Pt given insulin as ordered. aide notified RN of BS of 50. Pt eating and given juice. Notified Yvonne RIPSAWYER. Pt asymptomatic. Wi ll re check sugar in 15 minutes. 170- Sugar re checked , reading 68. Given one more ju ice and re notified Yvonne RIPSAWYER. Will re check BS one more time [...] on 04-19-2018 Protein mass conc HNO ID: [id number] [facility] Author: Yvonne Branham) Henrique Service: Hospital Medicine Author Type: Physician General Science Teacher Type: Progress Notes Filed: 04/19/2018 8:09 PM Note Text: SERVICE DATE: 04/19/2018 SERVICE TIME: 3:08 PM HOSPITAL MEDICINE PROGRESS NOTE NIGHT AND WEEKEND COVERAGE: Nights: Please contact [facility] [place] [id number]. HPI This is a 63 year old [...] her sugar at home and presented to [facility] ED instead. She reports a few [...] with long-term curr ent use of insulin ([facility]) 02/11/1995 - Present Current Assessment AND Plan Assessment: Last A1c 9.1 in 01/[address] crow outpatient Patient has been taking her insulin over the past week and this morning despite decreased appetite, nausea, and vomiting BG found to be in the 30s-40s on arrival, given D5 and started on dextrose drip which was stopped when she got to the [facility] as her blood sugars were in [...] Assessment AND Plan Assessment: Recent ECHO 02/27/2017 ([place]) with worsening RVSP, 64 mmHg. Follow with [...] PLAN: Continue high dose statin Morbid obesity ([facility]) 03/16/2014 - Present Current Assessment AND Plan Assessment: BMI 42 PLAN: Patient counseled on diet and exercise COPD with asthma ([facility]) 02/23/2017 - Present Current Assessment [...] DAILY 04/18/181930 -- 04/18/181944 pneumatic compression stockings ([place]) 04/18/181944 activity - mobilize patient ([place] VTE Prophylaxis: VTE prophylaxis appropriate Plan of care discussed with: Attending, Patient and RN SIGNATURE: Yvonne Duenas PA-C PATIENT NAME: Monique Wharton rd DATE: April 19, 2018 TIME: 3:08 PM PAGER/CONTACT #: [phone] ALLIED HEALTH on 04-18-2018 ALLIED HEALTH HNO ID: [id number] Normal [facility] Author: Holli (Ct) KRISS Gipson Service: (none) Author Type: Clinical Application Processor Type: Allied Health Filed: 04/18/2018 5:00 PM [...] PERIPHERAL IV DATA: Inpatient - refer to [facility] RADIOLOGY DEPARTMENT: CT; Exam(s) Completed: Abdomen/P peyman SIGNATURE: KRISS Snyder PATIENT NAME: Monique mathew DATE: April 18, 2018 TIME: 4:59 PM CASE MGT INIT ASSES on 04-18-2018 CASE MGT INIT ZEN HNO ID: [id number] [facility] Author: Penny (Rn) KYLE Pate Service: (none) Author Type: Registered Nurse Type: Care Mgt Initial Assessment Filed: 04/18/2018 7:27 PM Note Text: CARE MANAGEMENT: ASSESSMENT AND DISCHARGE PLAN SERVICE DATE: 04/18/2018 SERVICE TIME: 7:00 PM rubber attacher met with patient at bedside in the [facility] department bed-9. Introduction made and role of case management china cornell Patient states he is agreeable to assessment questions . Assessment information provided by electronic medical record and patient. PRIMARY CARE PHYSICIAN: Augie Romero MD - confirmed Patient states she prefers appointments between 10 am -11 am on . 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 How often do you [...] distances. Has the Patient Been in a Custodial Facility in the Past 30 days? No SOCIAL: Living Arrangement: Home Split Level Home Lives With: Spouse Financial Resources: Disabled Primary Contact: Anders Lincoln [address] [place] [address] [facility] Relation: Spouse Supportive: Yes - [...] 0 I feel financially burdened by my drk-rb-hmmrzb expens es for my prescription medication: Disagree completely - 0 Patient is categorized as low risk < 2 Patient states she manages her own medications. Spouse assists by picking up her prescriptions. Are you interested in bedside delivery of your medicat ions? No Pharmacy Preference: [facility] Concerns: In the Last Month, Have [...] Needs: None FREEDOM OF CHOICE EXPLAINED: Yes [place] of Choice explained to patient POTENTIAL TRANSITION PLANS Discharge Needs: To Be Determined Patient denies any discharge needs or concerns at this time. Anticipating Home/Self Care Discharge Transportation: Family to Transport - Spouse Patient informed Care Management is available to aid i n discharge planning needs. Primary Care Physician: Augie Romero MD - [facility] ry of Care to be sent at discharge. SIGNATURE: Penny Pate RN PATIENT NAME: Monique Reyes sford DATE: April 18, 2018 TIME: 7:00 PM PAGER/CONTACT #: [phone] CBC and Differential on 04-18-2018 Abs Baso 0.06 k/uL Normal <0.11 [facility] Comment on above: Performed By: #### CBCDIF, C K, CMP, LIPA, MG1 #### [facility] Laboratory [address] [place] [address] Abs [place] 1.02 k/uL High <0.87 [facility] Comment on above: Performed By: #### CBCDIF, C K, CMP, LIPA, MG1 #### [facility] [address] [place], [place] [phone] Abs Neut 9.16 k/uL High 1.45-7.50 [facility] Comment on above: Performed By: #### CBCDIF, C K, CMP, LIPA, MG1 #### [facility] [address] [place], [place] [phone] Basophils/100 WBC (Bld) 0.5 % Normal [facility] Comment on above: Performed By: #### CBCDIF, C K, CMP, LIPA, MG1 #### [facility] [address] [place], [place] [phone] Eosinophils #/vol (Bld) 0.13 10*3/uL Normal <0.46 [facility] Comment on above: Performed By: #### CBCDIF, C K, CMP, LIPA, MG1 #### [facility] [address] Eosinophils/100 WBC (Bld) 1.1 % Normal [facility] Comment on above: Performed By: #### CBCDIF, C K, CMP, LIPA, MG1 #### [facility] [address] [place] [address] Erythrocyte distribution width Ratio (RBC) 13.1 % Normal 11.5-15.0 [facility] Comment on above: Performed By: #### CBCDIF, C K, CMP, LIPA, MG1 #### [facility] [address] [place] [address] Hematocrit Volume Fraction (Bld) 38.1 % Normal 36.0-46. 0 [facility] Comment on above: Performed By: #### CBCDIF, C K, CMP, LIPA, MG1 #### [facility] [address] [place] [address] Hemoglobin mass conc (Bld) 12.4 g/dL Normal 11.5-15.5 [facility] Comment on above: Performed By: #### CBCDIF, C K, CMP, LIPA, MG1 #### [facility] [address] [place] [address] Lymphocytes #/vol (Bld) 1.60 10*3/uL Normal 1.00-4.00 [facility] Comment on above: Performed By: #### CBCDIF, C K, CMP, LIPA, MG1 #### [facility] [address] [place], [place] [phone] Lymphocytes/100 WBC (Bld) 13.4 % Normal [facility] Comment on above: Performed By: #### CBCDIF, C K, CMP, LIPA, MG1 #### [facility] [address] [place] [address] MCH Entitic mass (RBC) 31.6 pG Normal 26.0-34.0 [facility] Comment on above: Performed By: #### CBCDIF, C K, CMP, LIPA, MG1 #### [facility] [address] [place] [phone] MCHC mass conc (RBC) 32.5 g/dL Normal 30.5-36.0 [facility] Comment on above: Performed By: #### CBCDIF, C K, CMP, LIPA, MG1 #### [facility] [address] [place] [phone] MCV Entitic volume (RBC) 97.2 fL Normal 80.0-100.0 [facility] Comment on above: Performed By: #### CBCDIF, C K, CMP, LIPA, MG1 #### [facility] [address] [place] [address] Monocytes/100 WBC (Bld) 8.5 % Normal [facility] Comment on above: Performed By: #### CBCDIF, C K, CMP, LIPA, MG1 #### [facility] [address] [place] [address] Neutrophils/100 WBC (Bld) 76.5 % Normal [facility] Comment on above: Performed By: #### CBCDIF, C K, CMP, LIPA, MG1 #### [facility] [address] [place] [address] Platelet mean volume Entitic volume (Bld) 11.0 fL Normal 9.0-12.7 [facility] Comment on above: Performed By: #### CBCDIF, C K, CMP, LIPA, MG1 #### [facility] [address] [place] [address] Platelets #/vol (Bld) 181 10*3/uL Normal 150-400 [facility] Comment on above: Performed By: #### CBCDIF, C K, CMP, LIPA, MG1 #### [facility] [address] RBC #/vol (Bld) 3.92 10*6/uL Normal 3.90-5.20 [facility] Comment on above: Performed By: #### CBCDIF, C K, CMP, LIPA, MG1 #### [facility] [address] WBC #/vol (Bld) 11.97 10*3/uL High 3.70-11.00 [facility] Comment on above: Performed By: #### CBCDIF, C K, CMP, LIPA, MG1 #### [facility] [address] [facility] [phone] CK on 04-18-2018 CK enzyme act/vol 40 U/L Low 42-196 [facility] Comment on above: Performed By: #### CBCDIF, C K, CMP, LIPA, MG1 #### [facility] [address] [facility] [phone] CT ABD/PEL W IVCON on 04-18-2018 CT ABD/PEL W IVCON * * *Final Report* * * Normal [facility] DATE OF EXAM: Apr 18 2018 5:03PM [facility] ABD/PEL W IVCON / [...] Ronni austin on 04/18/2018 at 5:30 PM. Wood Heel Back Liner: CONOR Transcribe Date/Time: Apr 18 2018 5:12P Dictated by : SARITHA TIJERINA MD This examination was interpreted and the report review ed and electronically signed by: SARITHA TIJERINA MD on Apr 18 2018 5:39PM EST [id number] Metabolic Panel on 04-18-2018 Albumin mass conc 3.9 g/dL Normal 3.9-4.9 [facility]ital Comment on above: Performed By: #### CBCDIF, C K, CMP, LIPA, MG1 #### [facility] [address] [place] [address] ALP enzyme act/vol 98 U/L Normal 34-123 [facility]ital Comment on above: Performed By: #### CBCDIF, C K, CMP, LIPA, MG1 #### [facility] [address] [place] [address] ALT enzyme act/vol 28 U/L Normal 7-38 [facility] Comment on above: Performed By: #### CBCDIF, C K, CMP, LIPA, MG1 #### [facility] [address] [place] [phone] Anion gap molar conc 10 mmol/L Normal 9-18 [facility] Comment on above: Performed By: #### CBCDIF, C K, CMP, LIPA, MG1 #### [facility] [address] [place] [phone] AST enzyme act/vol 34 U/L Normal 13-35 [facility] Comment on above: Performed By: #### CBCDIF, C K, CMP, LIPA, MG1 #### [facility] [address] [facility] [phone] Bilirubin mass conc 0.5 mg/dL Normal 0.2-1.3 [facility] Comment on above: Performed By: #### CBCDIF, C K, CMP, LIPA, MG1 #### [facility] [address] [place] [phone] Calcium mass conc 10.0 mg/dL Normal 8.5-10.2 [facility] pital Comment on above: Performed By: #### CBCDIF, C K, CMP, LIPA, MG1 #### [facility] [address] [place] [phone] Chloride molar conc 99 mmol/L Normal 97-105 [facility]spital Comment on above: Performed By: #### CBCDIF, C K, CMP, LIPA, MG1 #### [facility] [address] [place] [phone] CO2 molar conc 33 mmol/L High 22-30 [facility] Comment on above: Performed By: #### CBCDIF, C K, CMP, LIPA, MG1 #### [facility] [address] [place] [phone] Creatinine mass conc 1.03 mg/dL High 0.58-0.96 [facility] Comment on above: Performed By: #### CBCDIF, C K, CMP, LIPA, MG1 #### [facility] [address] [place] [phone] eGFR- Amer. >60 Normal [facility] Comment on above: Performed By: #### CBCDIF, C K, CMP, LIPA, MG1 #### [facility] [address] [facility] [phone] GFR/1.73 sq M predicted among non-blacks MDRD vol 54 . Norm al [facility] rate/area (S/P/Bld) Comment on above: [...] CBCDIF, C K, CMP, LIPA, MG1 #### [facility] [address] [facility] [phone] Glucose mass conc 46 mg/dL Low 74-99 [facility] Comment on above: Result Comment: The [place] [employer] (ADA) provides guidance for [...] for diagnosis of diabetes. Reference: Standards of [facility] Care in Diabetes 2016, [place] [employer]. Diabetes Care. 2016.39(Suppl 1). No call per procedure. 04/18/18 1442 ARoberts Performed By: #### CBCDIF, C K, CMP, LIPA, MG1 #### [facility] [address] [facility] [phone] Potassium molar conc 3.5 mmol/L Low 3.7-5.1 [facility] Comment on above: Performed By: #### CBCDIF, C K, CMP, LIPA, MG1 #### [facility] [address] [facility] [phone] Protein mass conc 7.1 g/dL Normal 6.3-8.0 [facility] Comment on above: Performed By: #### CBCDIF, C K, CMP, LIPA, MG1 #### [facility] [address] [facility] [phone] Sodium molar conc 142 mmol/L Normal 136-144 [facility] Comment on above: Performed By: #### CBCDIF, C K, CMP, LIPA, MG1 #### [facility] [address] [facility] [phone] Urea nitrogen mass conc 17 mg/dL Normal 7- [facility] Comment on above: Performed By: #### CBCDIF, C K, CMP, LIPA, MG1 #### [facility] [address] [facility] [phone] ECG COMPLETE on 04-18-2018 ECG COMPLETE NAME : MONIQUE LINCOLN [facility] PID : [id number] : 1955 Gender : Female Race : ORD : [id number] Procedure Date : Apr 18 2018 13:33:36 Edit Date : Apr 19 2018 09:45:20 Diagnosis:NORMAL SINUS RHYTHM NORMAL ECG WHEN COMPARED WITH ECG OF 23-FEB-2017 15:06, NO SIGNIFICANT CHANGE WAS FOUND agree Confirmed by MD LIZETTE, SANTOSH GERONIMO ([id number]), electronic news gathering editor ROSINA SCHRADER ([id number]) on 04/19/2018 9:45:12 AM Ventricular Rate : 78 BPM Atrial Rate : 78 BPM P-R Interval : 152 ms QRS Duration : 88 ms Q-T Interval : 394 ms QTC Calculation(Bezet) : 449 ms P Spraggs : 80 degrees R Spraggs : 17 degrees T Spraggs : 27 degrees Test Reason : Chest Pain Location : 1 : ER 9 Overread By : MD LIZETTEHURDLAND Edited By : ROSINA SCHRADER Referred By : LIZETTE Acquired by : IFEOMA BARNETT NOTE on 04-18-2018 ED NOTE HNO ID: [id number] [facility] Author: Noah (Rn) KYLE Barnett Service: (none) [...] and D50 given. ED NOTE HNO ID: [id number] [facility] Author: Noah (Rn) KYLE Barnett Service: (none) Author Type: Registered Nurse Type: ED Notes Filed: 04/18/2018 1:40 PM Note Text: ED NOTE HNO ID: [id number] [facility] Author: Massiel (Rn) KYLE Holm Service: (none) Author Type: Registered Nurse Type: ED Notes Filed: 04/18/2018 11:24 AM Note Text: Patient presents to the ED with N/V and abd pain for a bout a week. ED PROV NOTE on 04-18-2018 Protein mass conc HNO ID: [id number] [facility] Author: Ronni Mcguire DO Service: Emergency Medicine [...] Mother sepsis - Asthma Daughter ICU adm, [facility] ventilation. Social History Social History Main [...] reviewed Triage note reviewed Placed on cardiac specialist Parenteral analgesia administered Medications administered morphine and [...] HISTORY PHYSICAL on 04-18-2018 HISTORY HNO ID: [id number] Normal [facility] Author: Yvonne Branham) Henrique fairchild Service: Hospital Medicine Author Type: Physician General Science Teacher Type: HANDP Filed: 04/18/2018 7:53 PM Note Text: Attestation signed by Chepe Ballesteros at 04/18/2018 8:57 PM [facility] STAFF PHYSICIAN NOTE OF PERSONAL INVOLVEMENT IN C ARE I have reviewed the documentation obtained and documen ravi by the team healthcare provider (medical student, fellow, re sident, nurse practitioner or physician assistant athletic trainer) and I personally participated in the wise components. I have discussed the case and management of the patient' s care. Acute uncomplicated diverticulitis with hypoglycemia d ue to taking regular insulin dose while having nausea/vomiting. Will observ e overnight. IV antibiotics for now and liquid diet. Chepe Ballesteros MD Hospital Medicine Staff PAGER: [phone] DATE of Service: 04/18/2018 TIME of Service: 8:56 PM SERVICE DATE: 04/18/2018 SERVICE TIME: 7:48 PM HOSPITAL MEDICINE HISTORY AND PHYSICAL PCP: Augie Romero MD NIGHT AND WEEKEND COVERAGE: Nights: Please contact [facility] [place] [phone]. SUBJECTIVE Chief Complaint: Abdominal pain HPI: This [...] her sugar at home and presented to [facility] ED instead. She reports a few [...] Mother sepsis - Asthma Daughter ICU adm, [facility] ventilation. Social History Substance Use Topics [...] with long-term curr ent use of insulin ([facility]) 02/11/1995 - Present Current Assessment [...] Assessment AND Plan Assessment: Recent ECHO 02/27/2017 (post-[place]) with worsening RVSP, 64 mmHg. Follow with [...] DAILY 04/18/181930 -- 04/18/181944 pneumatic compression stockings ([place], [place]) 04/18/181944 activity - mobilize patient ([place]) VTE Prophylaxis: VTE prophylaxis appropriate SIGNATURE: Yvonne Duenas PA-C PATIENT NAME: Monique Wharton DATE: April 18, 2018 TIME: 7:48 PM PAGER/CONTACT #: [phone] Lipase on 04-18-2018 Lipase enzyme act/vol 20 U/L Normal 16-61 [facility] Comment on above: Performed By: #### Jeremiah CHAN K, CMP, LIPA, MG1 #### [facility] Laboratory [address] [facility] [phone] Magnesium on 04-18-2018 Magnesium mass conc 1.8 mg/dL Normal 1.7-2.3 [facility] Comment on above: Performed By: #### ROCIO C K, CMP, LIPA, MG1 #### [facility] [address] [address] Rapid PCR Assay FLU on 04-18-2018 Influenza A PCR Negative Normal [facility] Comment on above: Performed By: #### FLUPCR ## ## [facility] [address] [address] Influenza B PCR Negative Normal [facility] Comment on above: Performed By: #### FLUPCR ## ## [facility] [address] [place] [address] Specimen source Nom (Unsp spec) Nasopharyngeal Swab Normal [facility] Comment on above: Performed By: #### FLUPCR ## ## [facility] [address] [place] [address] Troponin T on 04-18-2018 Troponin T.cardiac mass conc ug/L Normal 0.000-0.029 [facility] Comment on above: Performed By: #### ELVIRA #### [facility] [address] [place] [address] Urinalysis on 04-18-2018 Bilirubin, Urine Negative Normal Negative [facility] Comment on above: Performed By: #### UA ####[facility] [address] [place] [address] 0 Clarity Nom (U) Clear Normal Clear [facility] Comment on above: Performed By: #### UA ####[facility] [address] [place] [address] 0 Color Nom (U) Yellow Normal Yellow [facility] Comment on above: Performed By: #### UA ####[facility] [address] [place] [address] 0 Glucose Ql (U) Negative Normal Negative [facility] Comment on above: Performed By: #### UA ####[facility] [address] [place] [address] 0 Hemoglobin/Blood,Ur Negative Normal Negative [facility] Comment on above: Performed By: #### UA ####[facility] [address] [place] [address] 0 Ketones Ql (U) Negative Normal Negative [facility] Comment on above: Performed By: #### UA ####[facility] [address] [place] [address] 0 Leukest Negative Normal Negative [facility] Comment on above: Performed By: #### UA ####[facility] [address] [place] [address] 0 Nitrite Ql (U) Negative Normal Negative [facility] Comment on above: Performed By: #### UA ####[place] [address] 0 pH (Bld) 6.0 Normal 5.0-8.0 [facility] Comment on above: Performed By: #### UA ####[place] [address] 0 Protein mass conc (U) Negative Normal Negative [facility] Comment on above: Performed By: #### UA ####[place] [address] 0 Specific Humphrey, Ur 1.015 Normal 1.001-1.029 [facility] Comment on above: Performed By: #### UA ####[place] [address] 0 Urobilinogen Qn (U) 0.2 Normal 0.2-1.0 [facility] Comment on above: Performed By: #### UA ####[place] [address] 0 XR CHEST 2V FRONTAL/LAT on 04-18-2018 XR CHEST 2V FRONTAL/LAT * * *Final Report* * * Normal [facility] DATE OF EXAM: Apr 18 [...] developing abnormality or acute process. Cardiomega ly. Wood Heel Back Liner: CONOR Transcribe Date/Time: Apr 18 2018 1:36P Dictated by : JUAN ORNELAS MD This examination was interpreted and the report review ed and electronically signed by: JUAN ORNELAS MD on Apr 18 2018 1:37PM EST [id number] Encounters Encounter Date Encounter Type Care Provider Facility Start: 05-31-2020 Patient encounter Augie Romero MD [facility] procedure Work Phone: [phone] Start: 04-30-2020 Patient encounter Augie Romero MD [facility] procedure Work Phone: [phone] Start: 01-30-2020 Patient encounter Augie Romero MD [facility] procedure Work Phone: [phone] Start: 09-26-2019 Patient encounter Augie Romero MD [facility] procedure Work Phone: Start: 06-20-2019 Patient encounter Augie Romero [facility] procedure Work Phone: Start: 06-10-2019 Patient encounter Augie Romero [facility] procedure Work Phone: Start: [...] Phone: Start: 04-18-2018 Evaluation and CHEPE BALLESTEROS [facility] End: 04-21-2018 management of inpatient Start: 02-13-2018 Patient encounter Augie Romero [facility] procedure Work Phone: Start: 01-08-2018 Patient encounter Augie Jensenlianna [facility] procedure Work Phone: Start: 09-27-2017 Patient encounter Augie Romero [facility] procedure Work Phone: Start: 07-06-2017 Patient encounter Augie Jensenlianna [facility] procedure Work Phone: Start: 06-27-2017 Patient encounter Augie Romero [facility] procedure Work Phone: Procedures Date Procedure [...] Phone: [Influenza] 12-15-2015 pneumococcal conjugate [facility], 13 valent; Work [...] Dates Details Instructions not documented -[facility] Work Phone: Summary Purpose Family History [...] Records Found Hospital Course Note HNO ID: [id number] Author: Mary penaloza Service: Hospital Medicine Author [...] DATE CREATED AUTHOR AUTHOR'S ORGANIZ ATION 04/22/2018 [facility] DATE CREATED AUTHOR AUTHOR'S ORGANIZATIO N 06/20/2019 [facility] DATE CREATED AUTHOR AUTHOR'S ORGANIZATIO N 07/08/2020 [facility] DATE CREATED AUTHOR AUTHOR'S ORGANIZATIO N 02/02/2021 [facility] FOR RECORDS PERTAINING TO PATIENTS WHO [...] BE BASED ON THE PRIMARY CLINICAL RECORDS. [employer] provides no warranty or guarantee of the accuracy or completeness of information in this document.
--- NOTE | 2022-03-31 11:58 | RAD_ITS ---
STUDY: X-RAY CHEST REASON FOR EXAM: Female, 67 years old. Sob TECHNIQUE: Single AP portable view of the chest. COMPARISON: Comparison is made with prior study dated 02/21/2022. FINDINGS: EKG electrodes are seen. There is evidence of bilateral perihilar airspace disease worse on the right side with the airspace disease also seen in the right lower lobe. This may represent changes compatible with pulmonary edema and possible superimposed right basilar infiltrate. Blunting of both concerning angles. Normal size heart. Normal mediastinum and sol. Normal visualized pulmonary arteries. There is atherosclerotic calcification of the aortic arch with tortuosity. There are diffuse degenerative changes of the visualized thoracic spine. There is degenerative osteoarthritis of the bilateral shoulders. There is no demonstrated abnormality of the visualized soft tissue structures of the upper abdomen. RAD/Chest 1 View (Portable) IMPRESSION: Bilateral perihilar and right infrahilar airspace disease suggestive of either pulmonary edema or bilateral pulmonary infiltrates worse on the right side. Electronically Signed: Butch Ling MD at 13:07 EST ,
--- NOTE | 2022-03-31 11:58 | EKG12_ITS ---
Test Reason : Blood Pressure : / mmHG Vent. Rate : 110 BPM Atrial Rate : 110 BPM P-R Int : 168 ms QRS Dur : 086 ms QT Int : 348 ms P-R-T Axes : 078 086 013 degrees QTc Int : 470 ms Sinus tachycardia Cannot rule out Anterior infarct (cited on or before 12-JAN-2022) Abnormal ECG Confirmed by HEYDI ROSS, GODWIN ([id number]), restaurant expeditor TIFFANY DAMIAN ([id number]) on 04/03/2022 11:08:49 AM Referred By: JOSEPHINE Confirmed By:GODWIN SOLIZ MD
--- NOTE | 2022-03-31 12:00 | EDS_ITS ---
HPI History of Present Illness Chief Complaint: Shortness of Breath Informant: patient and EMS Narrative Narrative: Presents from EMS from [place] for reported increasing dyspnea and hypoxia. History of COPD chronic 3 to 4 L of oxygen. Patient of note was seen in the ED overnight for hypoglycemia that was stable throughout the night. She went back to the facility reported within 45 minutes EMS was called back due to increasing dyspnea reporting wheeze per patient. Reported on her oxygen she is 41% on room air. She was brought in on nonrebreather. Currently states she feels better with the nonrebreather. History of paroxysmal A. fib, she was unclear if she is on any blood thinners however paperwork notes she is on Eliquis twice a day. Denies chest pains. Reports history of CHF. She is nonambulatory at this time. [facility] Medical History Acute cervical myofascial strain Acute on chronic respiratory failure with hypoxemia Acute respiratory failure with hypoxia Amputated toe of left foot Anemia Asthma Atherosclerotic heart disease of [place] coronary artery without angina pectoris Atrial fibrillation Atrial fibrillation with rapid ventricular response CAD (coronary artery disease) CHF (congestive heart failure) Chronic congestive heart failure Chronic heart failure with preserved ejection fraction (HFpEF) Chronic heel ulcer Chronic respiratory failure with hypoxia, on home oxygen therapy Chronic ulcer of great toe of left foot Closed head injury Congestive heart failure (CHF) COPD (chronic obstructive pulmonary disease) Current use of insulin Decubitus ulcer of dorsum of foot, stage 2 Decubitus ulcer of left heel, stage 2 Decubitus ulcer of left heel, stage 3 Decubitus ulcer, heel, left, unstageable Depression Diabetes mellitus with diabetic polyneuropathy Diabetes type 2, controlled Diabetic foot ulcers Diverticulitis Dry gangrene Essential hypertension Former smoker History of amputation of left great toe History of non-ST elevation myocardial infarction (NSTEMI) (02/24/17) Hyperlipidemia Hypothyroid Morbid obesity Multiple wounds Myocardial infarct Non-rheumatic tricuspid valve insufficiency Nondisplaced fracture of distal phalanx of right great toe, initial encounter for closed fracture Nonrheumatic mitral (valve) insufficiency Obesity Obstructive sleep apnea On home O2 Renal insufficiency Secondary pulmonary arterial hypertension Thrombocytopenia Type 2 diabetes mellitus Vitamin D deficiency Home Medications aspirin 81 mg tablet,delayed release (Adult Aspirin Regimen) 81 mg PO DAILY heart 05/17/21 [History Last Taken 12/28/21] metoprolol succinate 50 mg tablet,extended release 24 hr 50 mg PO DAILY BLOOD PRESSURE 11/08/21 [History Last Taken 12/27/21] levothyroxine 100 mcg tablet (Synthroid) 100 mcg PO DAILY THYROID 12/13/21 [History Last Taken 12/28/21] montelukast 10 mg tablet 10 mg PO QHS ALLERGIES 12/13/21 [History Last Taken 12/27/21] sennosides 8.6 mg-docusate sodium 50 mg tablet (Senna-S) 1 tab PO BID STOOL SOFTNER 12/13/21 [History Last Taken 12/27/21] trazodone 100 mg tablet 150 mg PO QHS SLEEP 12/13/21 [History Last Taken 12/27/21] albuterol sulfate 90 mcg/actuation aerosol inhaler 2 puff inhalation 4X/DAY PRN PRN Shortness Of Breath Or Wheezing 12/19/21 [History Last Taken Unknown] acetaminophen 325 mg tablet (Tylenol) 650 mg PO Q6H PRN PRN Pain 1-10 Or Fever >100.7 #0 tabs 12/21/21 [Rx Last Taken 12/27/21] arginine 7 gram-glutam 7 gram-CaHMB 1.5 [id number]-min oral pwd pkt (Say (with collagen)) 1 packet PO BIDCM #0 ea 12/21/21 [Rx Last Taken 12/27/21] ferrous sulfate 325 mg (65 mg iron) tablet (FeroSul) 325 mg PO LUNCH SUPPLEMENT 12/28/21 [History Last Taken 12/27/21] fluconazole 200 mg tablet 400 mg PO DAILY 12/28/21 [History Last Taken Unknown] insulin lispro 100 unit/mL subcutaneous pen (Humalog KwikPen (U-100) Insulin) 10 unit subcut TIDAC DIABETES 12/28/21 [History Last Taken 12/27/21] nystatin 100,000 unit/gram topical powder (Nyamyc) 1 applic topical TID IRRITATION 12/28/21 [History Last Taken 12/28/21] omeprazole 40 mg capsule,delayed release 40 mg PO BID GERD 12/28/21 [History Last Taken 12/27/21] polyethylene glycol 3350 17 gram oral powder packet 17 g PO DAILY CONSTIPATION 11/02/22 [History Last Taken 12/27/21] paroxetine HCl 20 mg tablet (Paxil) 20 mg PO DAILY 01/12/22 [History Last Taken Unknown] mirtazapine 30 mg tablet 15 mg PO QHS 02/17/22 [History Last Taken Unknown] apixaban 5 mg tablet (Eliquis) 5 mg PO BID #0 tabs 02/24/22 [Rx Last Taken Unknown] bumetanide 2 mg tablet 2 mg PO TID #0 tabs 02/24/22 [Rx Last Taken Unknown] insulin detemir U-100 100 unit/mL (3 mL) subcutaneous pen (Levemir FlexTouch U- 100 Insulin) 25 unit (0.25 mL) subcut QHS blood sugar #15 mL 02/24/22 [Rx Last Taken 12/27/21] potassium chloride 20 mEq tablet,extended release(part/cryst) (Klor-Con M) 20 meq PO DAILYCM #0 tabs 02/24/22 [Rx Last Taken Unknown] gabapentin 100 mg capsule 300 mg PO TID NERVE PAIN 03/23/22 [History Last Taken Unknown] meloxicam 7.5 mg tablet 7.5 mg DAILY 03/31/22 [History Last Taken Unknown] Allergy/AdvReac Type Severity Reaction Status Date / Time doxycycline Allergy NEEDS Verified 03/31/22 11:49 FOLLOW-UP latex Allergy NEEDS Verified 03/31/22 11:49 FOLLOW-UP Sulfa (Sulfonamide Allergy Anaphylaxis Verified 03/31/22 11:49 Antibiotics) sulfur dioxide Allergy Anaphylaxis Verified 03/31/22 11:49 oxycodone AdvReac Other Verified 03/31/22 11:49 Family History Grandmother Diabetes Mother Heart disease Surgical History H/O right heart catheterization History of cataract surgery History of coronary artery stent placement (02/24/17) History of heart artery stent Tubal ligation status Social History household members: none housing: other details: [facility] Living. Smoking Status: Former smoker how long ago did patient quit smokin alcohol intake: former year quit: 2000 substance use type: does not use caffeine: Yes Type: carbonated beverages and tea ROS ROS ED Constitutional Constitutional ED: Denies chills, fever(s) or sweats Eyes Eyes: Denies change in vision ENT ENT ED: Denies dysphagia or sore throat Cardiovascular Cardiovascular: Denies chest pain, leg edema, palpitations or racing heartbeat Respiratory/Chest Respiratory/Chest: Reports cough and dyspnea; Denies dyspnea on exertion Gastrointestinal Gastrointestinal: Denies abdominal pain, diarrhea, nausea or vomiting Genitourinary Genitourinary ED: Denies dysuria, hematuria or urinary frequency Musculoskeletal Musculoskeletal: Denies back pain, extremity pain or neck pain Integumentary Denies rash or wounds Neurologic Neurologic: Denies headache(s), paresthesias or weakness EXAM Physical Exam Const Vital Signs: 03/31/22 11:42 03/31/22 11:50 03/31/22 12:06 Temperature 96.2 F L Temperature Source Temporal Pulse Rate 113 H Respiratory Rate 28 H Respiratory Effort Short of Breath Respiratory Pattern Tachypnea Blood Pressure 130/52 H Blood Pressure Mean 78 Pulse Ox 91 91 Oxygen Delivery Method Non-Rebreather Non-Rebreather Oxygen Flow Rate (L/min) 15 7 Fraction of Inspired Oxygen (FIO2) 03/31/22 12:31 03/31/22 14:17 Temperature Temperature Source Pulse Rate 109 H 103 H Respiratory Rate 23 H 24 H Respiratory Effort Respiratory Pattern Tachypnea Blood Pressure 108/66 Blood Pressure Mean 80 Pulse Ox 94 98 Oxygen Delivery Method Bi-pap Oxygen Flow Rate (L/min) Fraction of Inspired Oxygen (FIO2) 65 Positive well nourished and well developed Constitutional Narrative: Initial nonrebreather 15 L, she was turned down to 6 L by myself. No respiratory distress. General Appearance ED: well developed and NAD HEENT Reports moist mucous membranes normocephalic and atraumatic Eyes PERRL, EOMs intact bilaterally and conjunctivae normal General Eye ED: Yes normal appearance of both eyes Neck no lymphadenopathy and supple General: Negative for tenderness Chest Wall Chest: Negative for tenderness Resp normal respiratory effort and normal air movement Effort and Inspection: symmetric chest movement; Negative for respiratory distress Cardio regular rhythm and no murmurs Rate: tachycardic Peripheral Pulses: pulses 2+ throughout GI normal to inspection, nondistended, normoactive bowel sounds and non-tender Palpation: Negative for guarding or rebound tenderness present Back/Spine no CVA tenderness and no thoracic nor lumbar tenderness Extremity normal to inspection General Extremety ED: Negative for edema or tenderness General Extremity: Negative for edema Neuro oriented x3 and no sensory deficits noted Sensorium / Orientation: awake and alert Skin no rashes or lesions noted and no wounds MDM MDM MDM Narrative Medical decision making narrative: Patient turned down to 6 L oxygenation. Reported cough and wheeze. Differential COPD exacerbation, CHF, pneumonia. Lower likelihood of PE with her on Eliquis twice a day. EKG sinus tachycardia. No wheezing on exam. Will check ABG chest x-ray and labs. Will reevaluate will try to wean down on oxygenation. This patient was weaned down and seen by respiratory with ABG she had increasing respiratory distress she was placed on a BiPAP. ABG at 65% oxygen PO2 of 66 pH is 7.33. PCO2 of 62. Patient clinically was improved on oxygen. Work-up initiated white count returned at 15.7 hemoglobin 9.2 creatinine 1.3 BNP elevated at 446. 1 view chest x-ray interpreted myself and read by radiology increasing changes bilaterally concerning for infiltrative changes versus edema. She clinically has more cough and worsening swelling. Patient meeting SIRS criteria therefore added lactic acid and blood cultures procalcitonin to help differentiate between viral and bacterial causes. Difficulties with IVs per nursing therefore placed ultrasound-guided right EJ 20-gauge with no difficulties. Patient was covered Rocephin and Zithromax. I spoke with hospitalist Dr. Wilson for admission to PCU. Clinically stable for this. Results lactic acid 6 with 1.7. She is meeting severe sepsis criteria. Lab Data Attestation: I reviewed the patient's lab results. Labs: Laboratory Results - last 24 hr 03/31/22 03/31/22 03/31/22 13:14 13:14 13:14 WBC 15.7 H RBC 3.35 L Hgb 9.2 L Hct 32.5 L MCV 97.0 MCH 27.5 MCHC 28.3 L RDW Std Deviation 65.1 H RDW Coeff of Magen 18.4 H Plt Count 202 MPV 10.3 Immature Gran % (Auto) 0.200 Neut % (Auto) 93.1 H Lymph % (Auto) 3.4 L [place] % (Auto) 2.3 Eos % (Auto) 0.4 Baso % (Auto) 0.6 Absolute Neuts (auto) 14.7 H Absolute Lymphs (auto) 0.53 L Nucleated RBC % 0 PT INR APTT Sodium 144 Potassium 4.6 Chloride 101 Carbon Dioxide 37.0 H Anion Gap 6 BUN 50 H Creatinine 1.31 H Estim Creat Clear Calc 38.01 Est GFR (MDRD) Af Amer 52 L Est GFR (MDRD) Non-Af 43 L BUN/Creatinine Ratio 38.2 H Glucose 141 H Lactic Acid Calcium 9.3 Total Bilirubin 0.60 AST 17 ALT 12 L Alkaline Phosphatase 216 H B-Natriuretic Peptide 446.9 H Total Protein 6.8 Albumin 2.1 L Globulin 4.7 H Albumin/Globulin Ratio 0.4 L Procalcitonin 03/31/22 03/31/22 03/31/22 13:14 13:14 14:13 WBC RBC Hgb Hct MCV MCH MCHC RDW Std Deviation RDW Coeff of [place]agen Plt Count MPV Immature Gran % (Auto) Neut % (Auto) Lymph % (Auto) [place] % (Auto) Eos % (Auto) Baso % (Auto) Absolute Neuts (auto) Absolute Lymphs (auto) Nucleated RBC % PT 21.8 H INR 1.9 APTT 36.2 Sodium Potassium Chloride Carbon Dioxide Anion Gap BUN Creatinine Estim Creat Clear Calc Est GFR (MDRD) Af Amer Est GFR (MDRD) Non-Af BUN/Creatinine Ratio Glucose Lactic Acid 2.6 H* Calcium Total Bilirubin AST ALT Alkaline Phosphatase B-Natriuretic Peptide Total Protein Albumin Globulin Albumin/Globulin Ratio Procalcitonin 1.71 H ABG Data ABG results: ABG 03/31/22 12:31 Specimen Type ART Sample Site R Brach pH 7.34 L Bicarbonate Actual 33.5 H Total CO2 35 Base Excess 8 H O2 Saturation 91 L O2 % 65 ABG pCO2 62.4 H ABG pO2 66 L Hussain Test Positive Respiration Rate 14 O2 Delivery Device BiPAP Radiography Diagnostic Testing: Clinical Impression(s) from Imaging Studies Chest X-Ray 03/31/22 11:58 IMPRESSION: Bilateral perihilar and right infrahilar airspace disease suggestive of either pulmonary edema or bilateral pulmonary infiltrates worse on the right side. Electronically Signed: Butch Ling MD at 13:07 EST , EKG Initial EKG: Attestation: I personally reviewed and interpreted this EKG as follows: Comments: Sinus rate of 110, no ST or T wave changes. Critical Care Time Critical Care Time: Yes Critical care time (excluding procedures): 30-74 minutes, Discussing w/Patient &/or Family/Gyn, Discussing w/Consultants, Arranging Admission or Transfer, Performing Direct Patient Care at Bedside and - (40 minutes) Discharge Plan Triage Chief Complaint: Shortness of Breath ED Provider: Orlin Roger Dx/Rx/DC Orders Clinical Impression: Pneumonia, Diabetes mellitus, COPD exacerbation, (HFpEF) heart failure with preserved ejection fraction, Acute and chronic respiratory failure with hypoxia, Anemia, CKD (chronic kidney disease) Primary Care Provider: Geovanna Mott THERMAL CUTTER HELPER Disposition Disposition: Acute Care Hospital [facility]
[2022-03-31 12:40] LABS: Allen Test Positive; Base Excess 8 mmol/L (-2 to +2); Bicarbonate 33.5 mmol/L (22-26); Blood Gas Specimen Type ART; FI02 65; O2 Delivery Device BiPAP; PO2 66 mmHG (75-100); RR 14; SITE R Brach; SO2 91 % (95-99); Total Carbon Dioxide 35 mmol/L; pCO2 62.4 mmHg (35-45); pH 7.34 (7.35-7.45)
[2022-03-31 13:25] LABS: Absolute Lymphocyte Count 0.53 X10^3/uL (0.83-4.51); Absolute Neutrophil Count 14.7 X10^3/uL (2.0-7.7); Basophil# 0.09 X10^3/uL; Basophil% 0.6 % (0-1); Eosinophil# 0.06 X10^3/uL; Eosinophils% 0.4 % (0-5); Hematocrit 32.5 % (37-47); Hemoglobin 9.2 g/dL (12.0-15.0); Lymphocyte # 0.53 X10^3/ul (0.83-4.51); Lymphocyte % 3.4 % (19-41); Mean Corp Hgb Conc 28.3 g/dL (32-36); Mean Corpuscular Hgb 27.5 pg (27.0-32.0); Mean Platelet Vol. 10.3 fl (6.2-12.0); Monocyte# 0.36 X10^3/uL; Monocyte% 2.3 % (0-10); NRBC Flagged by Analyzer 0 % (0-5); Neutrophil # 14.66 X10^3/uL (2.7-7.7); Neutrophil % 93.1 % (47-70); POSITIVE DIFFERENTIAL YES; POSITIVE MORPHOLOGY YES; Platelet Count 202 K/mm3 (150-450); RBC Distribution Width CV 18.4 % (11.6-14.6); RBC Distribution Width SD 65.1 fl (35.1-43.9); Red Blood Count 3.35 M/mm3 (4.2-5.4); White Blood Count 15.7 K/mm3 (4.4-11.0)
[2022-03-31 13:29] LABS: Differential Indicated SCAN CRITERIA MET
[2022-03-31] MEDS: MethylPREDNISolone 125 MG/2 ML Vial 60 MG IV (13:30)
[2022-03-31 13:41] LABS: ALB/GLOB Ratio 0.4 RATIO (0.9-2.4); AST(SGOT) 17 U/L (15-37); Alanine Aminotransfer ALT/SGPT 12 U/L (13-56); Albumin, Serum 2.1 g/dL (3.2-5.0); Alkaline Phosphatase 216 U/L (45-117); Anion Gap 6 (5-15); BUN 50 mg/dL (7-18); BUN/Creat Ratio 38.2 RATIO (10-20); Calcium,Total 9.3 mg/dL (8.5-10.1); Chloride 101 mmol/L (98-107); Creatinine, Serum 1.31 mg/dL (0.55-1.02); EST Glomerular Filtration Rate 43 mL/min (>60); Est Glom Filt Rate - Afr Amer 52 mL/min (>60); Estimated Creatinine Clearance 38.01 ml/min; Globulin 4.7 g/dL (2.2-4.2); Glucose 141 mg/dL (74-106); Potassium 4.6 mmol/L (3.5-5.1); Protein, Total 6.8 g/dL (6.4-8.2); Sodium Level 144 mmol/L (136-145)
[2022-03-31 13:47] LABS: BNP,B-Type NATRIURETIC PEPTIDE 446.9 pg/mL (0-100)
[2022-03-31 14:18] LABS: International Normalized Ratio 1.9; Prothrombin Time (Protime)PT. 21.8 SECONDS (11.7-14.9)
[2022-03-31 14:19] LABS: Partial Thromboplast Time 36.2 Seconds (24.1-36.2)
--- NOTE | 2022-03-31 14:37 | HP.PCM.HOS_ITS ---
[facility] - [facility] General Date of Service: 03/31/22 Chief Complaint: shortness of breath. [facility] Narrative SONA WILSON, is a 67 F who presents with shortness of breath from the [facility]. Presented earlier this morning with hypoglycemia and received glucose. Patient was sent home. Patient does have chronic respiratory failure on 4 L but presented again today with increasing shortness of breath. Patient was 77% on room air that she is on oxygen chronically. Patient was put on nonrebreather which placed her with a BiPAP which patient has remained comfortable. Chest x- ray performed showed bilateral perihilar and right infrahilar airspace disease interest of either pulmonary edema or bilateral pulmonary infiltrates. Patient received ceftriaxone and azithromycin in the emergency room. Patient denies any lower extremity edema or any recent weight gain. Patient was here in January for heart failure and it was diuresed. Her weight appears to be down from even down to 88 kg. Of note, patient did not have a chest x-ray from earlier today when she was hypoglycemic. Patient does complain of a cough that she feels should be productive but is not. Denies any fever or chills. Denies sore throat or rhinitis. [facility] Medical History Acute cervical myofascial strain Acute on chronic respiratory failure with hypoxemia Acute respiratory failure with hypoxia Amputated toe of left foot Anemia Asthma Atherosclerotic heart disease of [place] coronary artery without angina pectoris Atrial fibrillation Atrial fibrillation with rapid ventricular response CAD (coronary artery disease) CHF (congestive heart failure) Chronic congestive heart failure Chronic heart failure with preserved ejection fraction (HFpEF) Chronic heel ulcer Chronic respiratory failure with hypoxia, on home oxygen therapy Chronic ulcer of great toe of left foot Closed head injury Congestive heart failure (CHF) COPD (chronic obstructive pulmonary disease) Current use of insulin Decubitus ulcer of dorsum of foot, stage 2 Decubitus ulcer of left heel, stage 2 Decubitus ulcer of left heel, stage 3 Decubitus ulcer, heel, left, unstageable Depression Diabetes mellitus with diabetic polyneuropathy Diabetes type 2, controlled Diabetic foot ulcers Diverticulitis Dry gangrene Essential hypertension Former smoker History of amputation of left great toe History of non-ST elevation myocardial infarction (NSTEMI) (02/24/17) Hyperlipidemia Hypothyroid Morbid obesity Multiple wounds Myocardial infarct Non-rheumatic tricuspid valve insufficiency Nondisplaced fracture of distal phalanx of right great toe, initial encounter for closed fracture Nonrheumatic mitral (valve) insufficiency Obesity Obstructive sleep apnea On home O2 Renal insufficiency Secondary pulmonary arterial hypertension Thrombocytopenia Type 2 diabetes mellitus Vitamin D deficiency Home Medications aspirin 81 mg tablet,delayed release (Adult Aspirin Regimen) 81 mg PO DAILY heart 05/17/21 [History Last Taken 12/28/21] metoprolol succinate 50 mg tablet,extended release 24 hr 50 mg PO DAILY BLOOD PRESSURE 11/08/21 [History Last Taken 12/27/21] levothyroxine 100 mcg tablet (Synthroid) 100 mcg PO DAILY THYROID 12/13/21 [History Last Taken 12/28/21] montelukast 10 mg tablet 10 mg PO QHS ALLERGIES 12/13/21 [History Last Taken 12/27/21] sennosides 8.6 mg-docusate sodium 50 mg tablet (Senna-S) 1 tab PO BID STOOL SOFTNER 12/13/21 [History Last Taken 12/27/21] trazodone 100 mg tablet 150 mg PO QHS SLEEP 12/13/21 [History Last Taken 12/27/21] albuterol sulfate 90 mcg/actuation aerosol inhaler 2 puff inhalation 4X/DAY PRN PRN Shortness Of Breath Or Wheezing 12/19/21 [History Last Taken Unknown] acetaminophen 325 mg tablet (Tylenol) 650 mg PO Q6H PRN PRN Pain 1-10 Or Fever >100.7 #0 tabs 12/21/21 [Rx Last Taken 12/27/21] arginine 7 gram-glutam 7 gram-CaHMB 1.5 [id number] oral pwd pkt (Say (with collagen)) 1 packet PO BIDCM #0 ea 12/21/21 [Rx Last Taken 12/27/21] ferrous sulfate 325 mg (65 mg iron) tablet (FeroSul) 325 mg PO LUNCH SUPPLEMENT 12/28/21 [History Last Taken 12/27/21] fluconazole 200 mg tablet 400 mg PO DAILY 12/28/21 [History Last Taken Unknown] insulin lispro 100 unit/mL subcutaneous pen (Humalog KwikPen (U-100) Insulin) 10 unit subcut TIDAC DIABETES 12/28/21 [History Last Taken 12/27/21] nystatin 100,000 unit/gram topical powder (Nyamyc) 1 applic topical TID IRRITATION 12/28/21 [History Last Taken 12/28/21] omeprazole 40 mg capsule,delayed release 40 mg PO BID GERD 12/28/21 [History Last Taken 12/27/21] polyethylene glycol 3350 17 gram oral powder packet 17 g PO DAILY CONSTIPATION 12/28/21 [History Last Taken 12/27/21] paroxetine HCl 20 mg tablet (Paxil) 20 mg PO DAILY 01/12/22 [History Last Taken Unknown] mirtazapine 30 mg tablet 15 mg PO QHS 02/17/22 [History Last Taken Unknown] apixaban 5 mg tablet (Eliquis) 5 mg PO BID #0 tabs 02/24/22 [Rx Last Taken Unknown] bumetanide 2 mg tablet 2 mg PO TID #0 tabs 02/24/22 [Rx Last Taken Unknown] insulin detemir U-100 100 unit/mL (3 mL) subcutaneous pen (Levemir FlexTouch U- 100 Insulin) 25 unit (0.25 mL) subcut QHS blood sugar #15 mL 02/24/22 [Rx Last Taken 12/27/21] potassium chloride 20 mEq tablet,extended release(part/cryst) (Klor-Con M) 20 meq PO DAILYCM #0 tabs 02/24/22 [Rx Last Taken Unknown] gabapentin 100 mg capsule 300 mg PO TID NERVE PAIN 03/23/22 [History Last Taken Unknown] meloxicam 7.5 mg tablet 7.5 mg DAILY 03/31/22 [History Last Taken Unknown] Allergy/AdvReac Type Severity Reaction Status Date / Time doxycycline Allergy NEEDS Verified 03/31/22 11:49 FOLLOW-UP latex Allergy NEEDS Verified 03/31/22 11:49 FOLLOW-UP Sulfa (Sulfonamide Allergy Anaphylaxis Verified 03/31/22 11:49 Antibiotics) sulfur dioxide Allergy Anaphylaxis Verified 03/31/22 11:49 oxycodone AdvReac Other Verified 03/31/22 11:49 Family History Grandmother Diabetes Mother Heart disease Surgical History H/O right heart catheterization History of cataract surgery History of coronary artery stent placement (02/24/17) History of heart artery stent Tubal ligation status Social History household members: none housing: other details: [facility]. Smoking Status: Former smoker how long ago did patient quit smokin alcohol intake: former year quit: 1999 substance use type: does not use caffeine: Yes Type: carbonated beverages and tea ROS ROS Narrative All review of systems were negative except as mentioned above in the history of present illness and the other review of systems. Vital Signs Vital Signs Vital Signs: 03/31/22 11:42 03/31/22 11:50 03/31/22 12:06 Temperature 35.7 C L Temperature Source Temporal Pulse Rate 113 H Respiratory Rate 28 H Respiratory Effort Short of Breath Respiratory Pattern Tachypnea Blood Pressure 130/52 H Blood Pressure Mean 78 Pulse Ox 91 91 Oxygen Delivery Method Non-Rebreather Non-Rebreather Oxygen Flow Rate (L/min) 15 7 Fraction of Inspired Oxygen (FIO2) 03/31/22 12:31 03/31/22 14:17 Temperature Temperature Source Pulse Rate 109 H 103 H Respiratory Rate 23 H 24 H Respiratory Effort Respiratory Pattern Tachypnea Blood Pressure 108/66 Blood Pressure Mean 80 Pulse Ox 94 98 Oxygen Delivery Method Bi-pap Oxygen Flow Rate (L/min) Fraction of Inspired Oxygen (FIO2) 65 Weight Weight: 88.3 kg Body Mass Index (BMI) 32.3 Physical Exam Const alert and no apparent distress Constitutional Narrative: On BiPAP. General Appearance: cooperative HEENT normocephalic and head/scalp atraumatic Resp normal respiratory effort, no retractions, no use of accessory muscles and clear to auscultation bilaterally Cardio regular rate, regular rhythm, S1 normal heart sound and S2 normal heart sound GI normal to inspection, nondistended, normoactive bowel sounds, soft to palpation, non-tender and non-distended Extremity normal to inspection and full ROM Extremity Narrative: Feet were wrapped bilaterally, did not remove. Neuro oriented x3 and CN's II-XII intact bilaterally Psych affect normal Results Lab / Micro Data Attestation: I reviewed the patient's lab results. Result Diagrams: 03/31/22 13:14 03/31/22 13:14 Labs: Laboratory Results - last 24 hr 03/31/22 13:14: WBC 15.7 H, RBC 3.35 L, Hgb 9.2 L, Hct 32.5 L, MCV 97.0, MCH 27.5, MCHC 28.3 L, RDW Std Deviation 65.1 H, RDW Coeff of Magen 18.4 H, Plt Count 202, MPV 10.3, Immature Gran % (Auto) 0.200, Neut % (Auto) 93.1 H, Lymph % (Auto) 3.4 L, Ida % (Auto) 2.3, Eos % (Auto) 0.4, Baso % (Auto) 0.6, Absolute Neuts (auto) 14.7 H, Absolute Lymphs (auto) 0.53 L, Nucleated RBC % 0 03/31/22 13:14: Sodium 144, Potassium 4.6, Chloride 101, Carbon Dioxide 37.0 H, Anion Gap 6, BUN 50 H, Creatinine 1.31 H, Estim Creat Clear Calc 38.01, Est GFR (MDRD) Af Amer 52 L, Est GFR (MDRD) Non-Af 43 L, BUN/Creatinine Ratio 38.2 H, Glucose 141 H, Calcium 9.3, Total Bilirubin 0.60, AST 17, ALT 12 L, Alkaline Phosphatase 216 H, Total Protein 6.8, Albumin 2.1 L, Globulin 4.7 H, Albumin/Globulin Ratio 0.4 L 03/31/22 13:14: B-Natriuretic Peptide 446.9 H 03/31/22 13:14: PT 21.8 H, INR 1.9, APTT 36.2 Micro: Microbiology 03/31/22 12:10 Nasal Secretion SARS-CoV-2 & FLU Antigen (Rapid) - Final ABG Data ABG results: ABG 03/31/22 12:31 Specimen Type ART Sample Site R Brach pH 7.34 L Bicarbonate Actual 33.5 H Total CO2 35 Base Excess 8 H O2 Saturation 91 L O2 % 65 ABG pCO2 62.4 H ABG pO2 66 L Hussain Test Positive Respiration Rate 14 O2 Delivery Device BiPAP EKG Initial EKG: Attestation: I personally reviewed and interpreted this EKG as follows: Prior EKG tracings: available for review EKG Rhythm Intrepretation: Sinus Rhythm Radiology Impression Chest X-Ray 03/31/22 11:58 IMPRESSION: Bilateral perihilar and right infrahilar airspace disease suggestive of either pulmonary edema or bilateral pulmonary infiltrates worse on the right side. Electronically Signed: Butch Ling MD at 13:07 EST , Assessment & Plan Assessment/Plan (1) Acute respiratory failure with hypoxia and hypercapnia: PLAN: Multifactorial: 2/2 pneumonia, COPD, SILVER, pulmonary HTN (group 3) +/- CHF The patient does have appears to be a very prominent pneumonia versus pulmonary edema Patient's appears to be compensated at this time. Patient was hypoxic on room air though she is oxygen chronically. Patient currently on a BiPAP but I think that can be weaned down. Patient can benefit from the bilevel upon discharge based on her ABG for COPD, pulmonary HTN, chronic respiratory failure. (2) Pneumonia: PLAN: suspect gram negative Received ceftriaxone and azithromycin in the emergency room. Will utilize pip/tazo and vancomycin Pulmonary toilet Check urinary engines for strep Legionella. Check sputum culture (3) COPD exacerbation: PLAN: No wheezing but will treat empirically with bronchodilators as well as continued methylprednisolone (4) (HFpEF) heart failure with preserved ejection fraction: PLAN: Unclear if this is actually going on but will hold her oral diuretics for now and I give her IV furosemide. Clinically does not appear to be volume overload but this could be complicating her overall picture. Monitor kidney function closely. (5) Dry gangrene: PLAN: Patient had a nonhealing left great toe amputation on December 16. Patient has a dry gangrene and has recently seen Dr. Govea on 23 March. The patient is to follow-up with Dr. Govea on the for angiogram and possible intervention at that time. Local wound care. PLAN: Plan Chronic stable conditions * Diabetes mellitus type 2: Insulin-dependent. Patient did present with hypogly cemia earlier today. Unclear if patient, due to her underlying illness may have not been eating much and then may have precipitated the episode. Monitor closely for bouts of hypoglycemia. In the meantime continue with her basal and prandial insulin but also add sliding scale. * Diabetic polyneuropathy * Hypothyroidism: continue levothyroxine * Anxiety/depression: continue paroxetine * Coronary artery disease * Hyperlipidemia * Atrial fibrillation: cont apixaban, metop succinate * GERD * insomnia: continue trazodone * chronic protein calorie malnutrition: continue Say VTE prophylaxis: Not indicated the patient is already anticoagulated. CODE STATUS: Per the [facility] reports but also according to the patient. Patient wishes to be full code. Charges/Coding Visit Charges Inpatient E&M: 64711 Init Hosp L3
--- OUTSIDE RECORDS SUMMARY | 2022-03-31 14:50 | XMS RPT_ITS | CCD ---
:1955 Author Organization [employer] Care Team Providers Name Role Phone [facility] ([facility]) Work Phone: 1( [phone] Sulfonamides (antibiotic) Sulfonamides Drug Allergy [facility] (2 sources) (Antibiotic); Work Phone : Translations: [Sulfa Drugs] atorvastatin; Drug Allergy [facility] [place] (5 sources) Translations: 8 [facility] O[facility] [ATORVASTATIN] [facility] Doxycycline; Drug Allergy [place] (1 source) Translations: 5 [facility] [DOXYCYCLINE] [facility] Latex; Propensity to [place] (1 source) Translations: adverse 5 [facility] [LATEX] reactions to [facility] drug Repository (disorder) Sulfonamides Propensity to [place] (1 source) (Antibiotic); adverse 0 Clinic [facility] Translations: reactions to [facility] [SULFA drug Repository (SULFONAMIDE (disorder) ANTIBIOTICS)] SULFATE SALT; Propensity to [place] [facility] (1 source) Translations: adverse 7 [facility] [SULFATE SALT] reactions to [facility] drug Repository (disorder) Sulfonamides Allergy to [facility] (4 sources) (Antibiotic) drug (finding) Work Ph one: Sulfonamides Allergy to [facility] (4 sources) (Antibiotic) drug (finding) Work Ph one: Medications Completed/Discontinued Medications Medication Drug Class(es) Dates Sig (Normalized) Sig (Orig inal) [id number] actuat albuterol 0.09 mg/actuat metered d [...] rt : 07-Feb-2015 Active polyethylene glycol 3350 04474 mg powder for oral solution O smotic [...] [Coronary atherosclerosis of unspecified type of vessel, robinson or graft] Deficiency and other anemia Anemia; [...] sources) of drug therapy; Translations: [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 [address] ease fax results to [phone]. Assoc DX: J45.909. - COMPOUNDED PRESCRIPTION Please dispense disability placard. Expiration date: . DX: Coronary artery disease I25.10. - aspirin, enteric coated (ASPIRIN, ENTERIC COATED) 81 mg EC tablet Take 1 tablet by mouth once daily. - fluticasone (FLONASE) 50 mcg/actuation nasal spray Use 1 Scott in each nostril daily at bedtime. - [...] for 3 months anxiety = telephone call [phone]. 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 Office Visit (Family [...] breath, wheezing)- 2) Have you returned [facility] from [place] OR outside of the in the last [...] having little energy - more than h fpc the days 5. 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 TAIWO - [facility] [place] on 07-13-2019 TAIWO - [facility] [place] [facility] Normal [employer] [place], [place] MONIQUE LINCOLN January Date of Female Sex [id number] [place] [address] AddressEnglish (preferred) Language White Race Not or Ethnicity Summary of Care Clinical Content Allergies and Adverse Reacti ons <#[id number]> Encounters <#TQ5TZYWT> Family History <#EU3TVNZZ> Functional Status <#IJ5L4MFF> Immunization <#[id number]> Instructions <#ID0ER PEK> Interventions Provided <#FF9ZOSLL> Medications <#EM7HGAPB> Past Medical History <#[id number]> Plan of Care <#HU2MXWWC> Problems <#WJ0NPYRI> Procedures <#[id number]> Results <#ZS9WMIVC> Social History <#BT7P4VVV> Vital Signs <#XV6XDLSA> Other Document Details Health Care Providers Functional [...] 0 Augie Romero MD 20 ML Vial [employer] Ultra Blue STRP Quantity: 255 Refills: 0 Star t : 12-Jun-2012 traZODone HCl - 100 MG Oral Tablet TAKE 1 TABLET BY MOUTH EVERYDAY AT BEDTIME Quantity: 90 Refills: 3 Augie Romero MD Start : 20-Sep-2012 [employer] Ultra Mini w/Device Kit Quantity: 1 Refills: [...] 1 TABLET DAILY. Quantity: 30 Refills: 11 Aguie Romero MD Start : 06-Jul-2017 SB Polyethylene Glycol 3350 17 GM/SCOOP Oral Powder FILL DOSING CUP TO MARKED LINE (17 GRAMS) THEN MIX WITH 8 OUNCES OF FLUIDS AND DRINK DAILY DIRECTED, NEEDED Quantity: 1 Refills: 1 Augie Romero MD Start : 31-Jan-2018 255 GM Bottle Atorvastatin Calcium 80 Hemoglobin A1C, Level on 10-01-2018 HbA1c (Bld) [Mass fraction] 8.6 % 0 [facility] Work Phone: COMPREHENSIVE PANEL on 07-18-2018 Albumin [Mass/Vol] 3.7 g/dL Normal 3.4 - 5.0 [facility] Comment on above: Performed By: #### CMP #### [facility] [address] [place] [address] ALP [Catalytic activity/Vol] 109 U/L Normal 33 - 136 [facility] Comment on above: Performed By: #### CMP #### [facility] [address] [place] [address] ALT [Catalytic activity/Vol] 17 U/L Normal 7 - 45 [facility] Comment on above: Result Comment: Patients sally ated with Sulfasalazine may generate falsely decreased results fo r ALT. Performed By: #### CMP #### [facility] [address] [place] [address] Anion gap [Moles/Vol] 14 mmol/L Normal 10 - 20 [facility] Comment on above: Performed By: #### CMP #### [facility] [address] [place] [address] AST [Catalytic activity/Vol] 19 U/L Normal 9 - 39 [facility] Comment on above: Performed By: #### CMP #### [facility] [address] [place] [address] Bilirubin [Mass/Vol] 0.5 mg/dL Normal 0.0 - 1.2 [facility] Comment on above: Performed By: #### CMP #### [facility] [address] [place] [address] Calcium [Mass/Vol] 9.7 mg/dL Normal 8.6 - 10.6 [facility] Comment on above: Performed By: #### CMP #### [facility] [address] [place] [address] Chloride [Moles/Vol] 99 mmol/L Normal 98 - 107 [facility] Comment on above: Performed By: #### CMP #### [facility] [address] [place] [address] Creatinine [Mass/Vol] 0.81 mg/dL Normal 0.50 - 1.05 [facility] Comment on above: Performed By: #### CMP #### [facility] [address] [place] [address] GFR- AM. >60 Normal >60 [facility] Comment on above: Result Comment: CALCULATIONS OF ESTIMATED GFR ARE PERFORMED USING THE MDRD STUDY EQUATIO N FOR THE IDMS-TRACEABLE CREATININE ME THODS. CLIN CHEM 2007;53:766-72 Performed By: #### CMP #### [facility] [address] [place] [address] GFR-NON AM. >60 Normal >60 [facility] Comment on above: Performed By: #### CMP #### [facility] [address] [place] [address] Glucose [Mass/Vol] 173 mg/dL High 74 - 99 [facility] Comment on above: Performed By: #### CMP #### [facility] [address] [place] [address] HCO3 (Bld) [Moles/Vol] 33 mmol/L High 21 - 32 [facility] Comment on above: Performed By: #### CMP #### [facility] [address] [place] [address] Potassium [Moles/Vol] 3.3 mmol/L Low 3.5 - 5.3 [facility] Comment on above: Performed By: #### CMP #### [facility] [address] [place] [address] Protein [Mass/Vol] 6.7 g/dL Normal 6.4 - 8.2 [facility] Comment on above: Performed By: #### CMP #### [facility] [address] [place] [address] Sodium [Moles/Vol] 143 mmol/L Normal 136 - 145 [facility] Comment on above: Performed By: #### CMP #### [facility] [address] [place] [address] Urea nitrogen [Mass/Vol] 13 mg/dL Normal 6 - 23 [facility] Comment on above: Performed By: #### CMP #### [facility] [address] [place] [address] LIPID PANEL (CORONARY RISK 2) on 2018 Cholesterol [Mass/Vol] 176 mg/dL Normal 0 - 199 [facility] Comment on above: Result Comment: . [...] Performed By: #### LIPID ### # [facility] [address] [place] [address] Cholesterol in HDL [Mass/Vol] 34.0 mg/dL Abnormal [facility] Comment on above: Result Comment: . AGE VERY LOW LOW NORMAL HIGH 0-19 Y < 35 < 40 40-45 ---- 20-24 Y ---- < 40 >45 ---- >24 Y ---- < 40 40-60 >60 . Performed By: #### LIPID ### # [facility] [address] [place] [address] Cholesterol in LDL [Mass/Vol] 109 mg/dL High 0 - 99 [facility] Comment on above: Result Comment: . NEAR BORD AGE DESIRABLE OPTIMAL HIGH H IGH VERY HIGH 0-19 Y 0 - 109 --- 110-129 > /= 130 ---- 20-24 Y 0 - 119 --- 120-159 >/= 160 ---- >24 Y 0 - 99 100-129 130-159 160-189 >/=190 . Performed By: #### LIPID ### # [facility] [address] [place] [address] Cholesterol in VLDL [Mass/Vol] 33 mg/dL Normal 0 - 40 [facility] Comment on above: Performed By: #### LIPID ### # [facility] [address] [place] [address] Cholesterol.total/Cholesterol in HDL 5.2 {ratio} Abnormal [facility] [Mass ratio] [facility] Comment on above: Result Comment: REF VALUES DESIRABLE < 3.4 HIGH RISK > 5.0 Performed By: #### LIPID ### # [facility] [address] [place] [address] Triglyceride [Mass/Vol] 164 mg/dL High 0 - 149 [facility] Comment on above: Result Comment: [...] dosing. Performed By: #### LIPID ### # [facility] [address] [place] [address] CBC on 07-17-2018 Erythrocyte distribution width 13.5 % Normal 11.5 - 14. 5 [facility] (RBC) [Ratio] Comment on above: Performed By: #### CBC #### [facility] [address] [place] [address] Hematocrit (Bld) [Volume 39.2 % Normal 36.0 - 46.0 [facility] fraction] Comment on above: Performed By: #### CBC #### [facility] [address] [place] [address] Hemoglobin (Bld) [Mass/Vol] 12.3 g/dL Normal 12.0 - 16.0 [facility] Comment on above: Performed By: #### CBC #### [facility] [address] [place] [address] MCHC (RBC) [Mass/Vol] 31.4 g/dL Low 32.0 - 36.0 [facility] Comment on above: Performed By: #### CBC #### [facility] [address] [place] [address] MCV (RBC) [Entitic vol] 95 fL Normal 80 - 100 [facility] Comment on above: Performed By: #### CBC #### [facility] [address] [place] [address] Nucleated RBC/100 WBC (Bld) 0.0 /100 WBC Normal 0.0-0.0 [facility] [Ratio] Comment on above: Performed By: #### CBC #### [facility] [address] [place] [address] Platelets (Bld) [#/Vol] 193 10*3/uL Normal 150 - 450 [facility] Comment on above: Performed By: #### CBC #### [facility] [address] [place] [address] RBC (Bld) [#/Vol] 4.12 x10E12/L Normal 4.00 - 5.20 [facility] Comment on above: Performed By: #### CBC #### [facility] [address] [place] [address] WBC (Bld) [#/Vol] 8.0 10*3/uL Normal 4.4 - 11.3 [facility] Comment on above: Performed By: #### CBC #### [facility] [address] [place] [address] TSH on 07-17-2018 TSH Qn 3.18 m[IU]/L Normal 0.44 - 3.98 [facility] Comment on above: Result Comment: TSH testing is performed using different testing methodology at [facility] than at other [facility]. Direct res ult comparisons should only be made within the same method. . Patients receiving more than 5 mg/day of biotin may have interference in test results. A sample sh ould be taken no sooner than eight hours after previous dose. Contact [phone] for additional information. Performed By: #### TSH2 #### [facility] [address] [place] [address] Basic Metabolic Panl on 04-21-2018 Anion gap molar conc 13 mmol/L Normal 9-18 [facility] Comment on above: Performed By: #### CBC, BMP ####[facility] [address] [place] [address] 0 Calcium mass conc 9.4 mg/dL Normal 8.5-10.2 [facility] Comment on above: Performed By: #### CBC, BMP ####[facility] [address] [place] [address] 0 Chloride molar conc 101 mmol/L Normal 97-105 [facility] Comment on above: Performed By: #### CBC, BMP ####[facility] [address] [place] [address] 0 CO2 molar conc 24 mmol/L Normal 22-30 [facility] Comment on above: Performed By: #### CBC, BMP ####[facility] [address] [place] [address] 0 Creatinine mass conc 0.98 mg/dL High 0.58-0.96 [facility] Comment on above: Performed By: #### CBC, BMP ####[facility] [address] [place] [address] 0 eGFR- Amer. >60 Normal [facility] Comment on above: Performed By: #### CBC, BMP ####[facility] [address] [place] [address] 0 GFR/1.73 sq M predicted among non-blacks MDRD vol 58 . Norm al [facility] rate/area (S/P/Bld) Comment on above: Result Comment: [...] Performed By: #### CBC, BMP ####[facility] [address] [place] [address] 0 Glucose mass conc 258 mg/dL High 74-99 [facility] Comment on above: Result Comment: The [place] Diabetes [employer] (ADA) provides guidance for cutoff [...] of [facility] in Diabetes 2016, [place] [employer]. Diabetes Care. 2016.39(Suppl 1). Performed By: #### CBC, BMP ####[facility] [address] [place] [address] 0 Potassium molar conc 4.3 mmol/L Normal 3.7-5.1 [facility] Comment on above: Performed By: #### CBC, BMP ####[facility] [address] [place] [address] 0 Sodium molar conc 138 mmol/L Normal 136-144 [facility] Comment on above: Performed By: #### CBC, BMP ####[facility] [address] [place] [address] 0 Urea nitrogen mass conc 14 mg/dL Normal 7-21 [facility] Comment on above: Performed By: #### CBC, BMP ####[facility] [address] [place] [address] 0 CBC on 04-21-2018 Erythrocyte distribution width Ratio (RBC) 13.1 % Normal 11.5-15.0 [facility] Comment on above: Performed By: #### CBC, BMP ####[facility] [address] [place] [address] 0 Hematocrit Volume Fraction (Bld) 33.3 % Low 36.0-46. 0 [facility] Comment on above: Performed By: #### CBC, BMP ####[facility] [address] [place] [address] 0 Hemoglobin mass conc (Bld) 10.7 g/dL Low 11.5-15.5 [facility] Comment on above: Performed By: #### CBC, BMP ####[facility] [address] [place] [address] 0 MCH Entitic mass (RBC) 31.8 pG Normal 26.0-34.0 [facility] Comment on above: Performed By: #### CBC, BMP ####[facility] [address] [place] [address] 0 MCHC mass conc (RBC) 32.1 g/dL Normal 30.5-36.0 [facility] Comment on above: Performed By: #### CBC, BMP ####[facility] Y[address] [place], [place] [address] 0 MCV Entitic volume (RBC) 98.8 fL Normal 80.0-100.0 [facility] Comment on above: Performed By: #### CBC, BMP ####[facility] [address] [place] [address] 0 Platelet mean volume Entitic volume (Bld) 11.0 fL Normal 9.0-12.7 [facility] Comment on above: Performed By: #### CBC, BMP ####[facility] [address] [place] [address] 0 Platelets #/vol (Bld) 132 10*3/uL Low 150-400 [facility] Comment on above: Performed By: #### CBC, BMP ####[facility] [address] [place] [address] 0 RBC #/vol (Bld) 3.37 10*6/uL Low 3.90-5.20 [facility] Comment on above: Performed By: #### CBC, BMP ####[facility] [address] [place] [address] 0 WBC #/vol (Bld) 5.88 10*3/uL Normal 3.70-11.00 [facility] Comment on above: Performed By: #### CBC, BMP ####[facility] [address] [place] [address] 0 CNCO on 04-21-2018 CNCO Letter Text Normal [facility] April 21, 2018 Monique Lincoln [address] [facility] [address] Dear Ms. Lincoln, The nurses and staff of [facility] hope this woodrow er finds you feeling [...] comments, questions or concerns about your [facility], please feel free to contact me, [...] participation and thank you for choosing the [facility] for your health needs. Sincerely, Nurse Software Implementation Specialist: Emma Bass RN ([phone]) [facility] Unit: 2 South Basic Metabolic Panl on 04-20-2018 Anion gap molar conc 7 mmol/L Low 9-18 [facility] Comment on above: Performed By: #### CBC, BMP ####[facility] [address] [place] [address] 0 Calcium mass conc 9.1 mg/dL Normal 8.5-10.2 [facility] Comment on above: Performed By: #### CBC, BMP ####[facility] [address] [place] [address] 0 Chloride molar conc 101 mmol/L Normal 97-105 [facility] Comment on above: Performed By: #### CBC, BMP ####[facility] [address] [place] [address] 0 CO2 molar conc 30 mmol/L Normal 22-30 [facility] Comment on above: Performed By: #### CBC, BMP ####[place] [address] 0 Creatinine mass conc 1.46 mg/dL High 0.58-0.96 [facility] Comment on above: Performed By: #### CBC, BMP ####[facility] [address] [place] [address] 0 eGFR- Amer. 44 Normal [facility] Comment on above: Performed By: #### CBC, BMP ####[facility] [address] [place] [address] 0 GFR/1.73 sq M predicted among non-blacks MDRD vol 36 . Norm al [facility] rate/area (S/P/Bld) Comment on above: Result Comment: eGFR (Estima ravi GFR) Units of measure: mL/min/1.73 meters squared eGFR is derived from the ree xpressed MDRD Study equation using the following parameters: serum creatinine, age, gender and race. The creatinine assay has been calibrated to be traceable to IDPR. An eGFR <60 mL/min/1.73m2 fo r >3 months is consistent with chronic kidney disease. Refer to KDOQI guidelines for clinical interpretation. In patients with unstable re nal function, e.g. those with acute kidney injury, the eGFR may not accurately reflect actual GFR. Performed By: #### CBC, BMP ####[facility] [address] [place] [address] 0 Glucose mass conc 105 mg/dL High 74-99 [facility] Comment on above: Result Comment: The [place] Diabetes Association (ADA) provides guidance for cutoff [...] of [facility] 2016, [place] [employer]. Diabetes Care. 2016.39(Suppl 1). Performed By: #### CBC, BMP ####[facility] [address] [place] [address] 0 Potassium molar conc 4.5 mmol/L Normal 3.7-5.1 [facility] Comment on above: Performed By: #### CBC, BMP ####[facility] [address] [place] [address] 0 Sodium molar conc 138 mmol/L Normal 136-144 [facility] Comment on above: Performed By: #### CBC, BMP ####[facility] [address] [place] [address] 0 Urea nitrogen mass conc 21 mg/dL Normal 7-21 [facility] Comment on above: Performed By: #### CBC, BMP ####[facility] [address] [place] [address] 0 CBC on 04-20-2018 Erythrocyte distribution width Ratio (RBC) 13.1 % Normal 11.5-15.0 [facility] Comment on above: Performed By: #### CBC, BMP ####[facility] [address] [place] [address] 0 Hematocrit Volume Fraction (Bld) 32.9 % Low 36.0-46. 0 [facility] Comment on above: Performed By: #### CBC, BMP ####[facility] [address] [place] [address] 0 Hemoglobin mass conc (Bld) 10.7 g/dL Low 11.5-15.5 [facility] Comment on above: Performed By: #### CBC, BMP ####[place] [address] 0 MCH Entitic mass (RBC) 32.4 pG Normal 26.0-34.0 [facility] Comment on above: Performed By: #### CBC, BMP ####[place] [address] 0 MCHC mass conc (RBC) 32.5 g/dL Normal 30.5-36.0 [facility] Comment on above: Performed By: #### CBC, BMP ####[place] [address] 0 MCV Entitic volume (RBC) 99.7 fL Normal 80.0-100.0 [facility] Comment on above: Performed By: #### CBC, BMP ####[place] [address] 0 Platelet mean volume Entitic volume (Bld) 11.1 fL Normal 9.0-12.7 [facility] Comment on above: Performed By: #### CBC, BMP ####[facility] [address] [place] [address] 0 Platelets #/vol (Bld) 134 10*3/uL Low 150-400 [facility] Comment on above: Performed By: #### CBC, BMP ####[facility] [address] [place] [address] 0 RBC #/vol (Bld) 3.30 10*6/uL Low 3.90-5.20 [facility] devorah Comment on above: Performed By: #### CBC, BMP ####[facility] [place] [address] [place] [phone] WBC #/vol (Bld) 6.89 10*3/uL Normal 3.70-11.00 [facility] Comment on above: Performed By: #### CBC, BMP ####[facility] [place] [address] [place] [phone] PROGRESS on 04-20-2018 Protein mass conc HNO ID: [id number] Normal [facility] Author: Mary Diaz Service: Hospital Medicine Author Type: Physician Type: Progress Notes Filed: 04/20/2018 4:31 PM Note Text: SERVICE DATE: 04/20/2018 SERVICE TIME: 4:30 PM HOSPITAL MEDICINE PROGRESS NOTE NIGHT AND WEEKEND COVERAGE: Nights: Please [place] [facility] [place] [phone]. SUBJECTIVE Interval Events: Symptoms have improved. Still [...] with long-term curr ent use of insulin ([facility]) 02/11/1995 - Present Current [...] was stopped when she got to the [facility] as her blood sugars were in the [...] on diet and exercise COPD with asthma ([facility]) 02/23/2017 - Present Current [...] Assessment AND Plan Assessment: Recent ECHO 02/27/2017 (post-[place]) with worsening RVSP, 64 mmHg. Follow with [...] DAILY 04/18/181930 -- 04/18/181944 pneumatic compression stockings (mn,nd) 04/18/181944 activity - mobilize patient ([place] VTE Prophylaxis: VTE prophylaxis appropriate Plan of care discussed with: Patient SIGNATURE: Mary Diaz MD PATIENT NAME: Monique arellano DATE: April 20, 2018 TIME: 4:30 PM PAGER/CONTACT #: [phone] Basic Metabolic Panl on 04-19-2018 Anion gap molar conc 15 mmol/L Normal - [facility] Comment on above: Performed By: #### CBC, BMP ####[facility] [address] [place] [phone] Calcium mass conc 9.1 mg/dL Normal 8.5-10.2 [facility] Comment on above: Performed By: #### CBC, BMP ####[facility] [address] [place] [phone] Chloride molar conc 100 mmol/L Normal 97-105 [facility] Comment on above: Performed By: #### CBC, BMP ####[facility] [address] [place] [phone] 0 CO2 molar conc 28 mmol/L Normal 22-30 [facility] Comment on above: Performed By: #### CBC, BMP ####[facility] [address] [place] [address] 0 Creatinine mass conc 1.33 mg/dL High 0.58-0.96 [facility] Comment on above: Performed By: #### CBC, BMP ####[facility] [address] [place] [address] 0 eGFR- Amer. 49 Normal [facility] Comment on above: Performed By: #### CBC, BMP ####[facility] [address] [place] [address] 0 GFR/1.73 sq M predicted among non-blacks MDRD vol 40 . Norm al [facility] rate/area (S/P/Bld) Comment on above: Result Comment: [...] Performed By: #### CBC, BMP ####[facility] [address]bf[address] [place] [phone] 0 Glucose mass conc 234 mg/dL High 74-99 [facility] Comment on above: Result Comment: The [place] Diabetes Association (ADA) provides guidance for cutoff [...] of [facility] in Diabetes 2016, [place] [employer]. Diabetes Care. 2016.39(Suppl 1). Performed By: #### CBC, BMP ####[facility] [address] [place] [address] 0 Potassium molar conc 4.6 mmol/L Normal 3.7-5.1 [facility] Comment on above: Performed By: #### CBC, BMP ####[facility] [address] [place] [address] 0 Sodium molar conc 143 mmol/L Normal 136-144 [facility] Comment on above: Performed By: #### CBC, BMP ####[facility] [address] [place] [address] 0 Urea nitrogen mass conc 20 mg/dL Normal 7-21 [facility] Comment on above: Performed By: #### CBC, BMP ####[facility] [address] [place] [address] 0 CASE MANAGEM on 04-19-2018 CASE MANAGEM HNO ID: [id number] Normal [facility] Author: Ariana (Kyle) KYLE Muñoz [...] 19, 2018 TIME: 12:34 PM PAGER/CONTACT #: [phone] CBC on 04-19-2018 Erythrocyte distribution width Ratio (RBC) 13.3 % Normal 11.5-15.0 [facility] Comment on above: Performed By: #### CBC, BMP ####[facility] [address] [place] [address] 0 Hematocrit Volume Fraction (Bld) 36.0 % Normal 36.0-46. 0 [facility] Comment on above: Performed By: #### CBC, BMP ####[facility] [address] [place] [address] 0 Hemoglobin mass conc (Bld) 11.5 g/dL Normal 11.5-15.5 [facility] Comment on above: Performed By: #### CBC, BMP ####[place] [phone] 0 MCH Entitic mass (RBC) 31.9 pG Normal 26.0-34.0 [facility] Comment on above: Performed By: #### CBC, BMP ####[place] [address] 0 MCHC mass conc (RBC) 31.9 g/dL Normal 30.5-36.0 [facility] Comment on above: Performed By: #### CBC, BMP ####[place] [address] 0 MCV Entitic volume (RBC) 99.7 fL Normal 80.0-100.0 [facility] Comment on above: Performed By: #### CBC, BMP ####[facility] [address] [place] [address] 0 Platelet mean volume Entitic volume (Bld) 11.2 fL Normal 9.0-12.7 [facility] Comment on above: Performed By: #### CBC, BMP ####[facility] [address] [place] [address] 0 Platelets #/vol (Bld) 149 10*3/uL Low 150-400 [facility] Comment on above: Performed By: #### CBC, BMP ####[facility] [address] [place] [address] 0 RBC #/vol (Bld) 3.61 10*6/uL Low 3.90-5.20 [facility] Comment on above: Performed By: #### CBC, BMP ####[facility] [address] [place] [address] 0 WBC #/vol (Bld) 9.98 10*3/uL Normal 3.70-11.00 [facility] Comment on above: Performed By: #### CBC, BMP ####[facility] [address] [place] [phone] 0 NURSING PROG on 04-19-2018 Protein HNO ID: [id number] Normal [facility] Author: Magnus (Rn) KYLE [facility] conc Service: (none) Author Type: Registered Nurse Type: Nursing Progress Note Filed: 04/20/2018 4:15 AM Note Text: Nursing Progress Note Patient Name: Monique Lincoln Patient Location: [place] [address] [address] Daily Note: 2043: Patient states she feels [...] by: Magnus Merritt, RN Protein HNO ID: [id number] Normal [facility] Author: Summer (Rn) Pearl, KYLE Hospital conc Service: (none) Author Type: Registered Nurse Type: Nursing Progress Note Filed: 04/19/2018 6:39 PM Note Text: Nursing Progress Note Patient Name: Monique Lincoln Patient [facility] [id number] Daily Note: 1651- Pt given insulin as ordered. aide notified RN of BS of 50. Pt eating and given juice. Notified Yvonne BUSINESS EDITOR. Pt asymptomatic. Wi ll re check sugar in 15 minutes. 170- Sugar re checked , reading 68. Given one more ju ice and re notified Yvonne BUSINESS EDITOR. Will re check BS one more time [...] on 04-19-2018 Protein mass conc HNO ID: [id number] [facility] Author: Yvonne Branham) Henrique Service: Hospital Medicine Author Type: Physician Mental Tester Type: Progress Notes Filed: 04/19/2018 8:09 PM Note Text: SERVICE DATE: 04/19/2018 SERVICE TIME: 3:08 PM HOSPITAL MEDICINE PROGRESS NOTE NIGHT AND WEEKEND COVERAGE: Nights: Please [place] [facility] [place] [place] [phone]. HPI This is a 63 year old [...] her sugar at home and presented to [facility] ED instead. She reports a [...] with long-term curr ent use of insulin ([facility]) 02/11/1995 - Present Current [...] was stopped when she got to the [facility] as her blood sugars were in the [...] Assessment AND Plan Assessment: Recent ECHO 02/27/2017 (post-[place]) with worsening RVSP, 64 mmHg. Follow with [...] PLAN: Continue high dose statin Morbid obesity ([facility]) 03/16/2014 - Present Current Assessment AND Plan Assessment: BMI 42 PLAN: Patient counseled on diet and exercise COPD with asthma ([facility]) 02/23/2017 - Present Current [...] DAILY 04/18/181930 -- 04/18/181944 pneumatic compression stockings ([place]) 04/18/181944 activity - mobilize patient ([place] VTE Prophylaxis: VTE prophylaxis appropriate Plan of care discussed with: Attending, Patient and RN SIGNATURE: Yvonne Duenas PA-C PATIENT NAME: Monique Wh[address] rd DATE: April 19, 2018 TIME: 3:08 PM PAGER/CONTACT #: [phone] ALLIED HEALTH on 04-18-2018 ALLIED HEALTH HNO ID: [id number] Normal [facility] Author: Holli (Ct) KRISS Gipson Service: (none) Author Type: Clinical Vaccinator Type: Allied Health Filed: 04/18/2018 5:00 PM [...] PERIPHERAL IV DATA: Inpatient - refer to [facility] RADIOLOGY DEPARTMENT: CT; Exam(s) Completed: Abdomen/P peyman SIGNATURE: KRISS Snyder PATIENT NAME: Monique mathew DATE: April 18, 2018 TIME: 4:59 PM CASE MGT INIT ASSES on 04-18-2018 CASE MGT INIT ZEN HNO ID: [id number] [facility] Author: Penny (Rn) KYLE Pate Service: (none) Author Type: Registered Nurse Type: Care Mgt Initial Assessment Filed: 04/18/2018 7:27 PM Note Text: CARE MANAGEMENT: ASSESSMENT AND DISCHARGE PLAN SERVICE DATE: 04/18/2018 SERVICE TIME: 7:00 PM rack loader met with patient at bedside in the [facility] department bed-9. Introduction made and role of case management china cornell Patient states he is agreeable to assessment questions . Assessment information provided by electronic medical record and patient. PRIMARY CARE PHYSICIAN: Augie Romero MD - confirmed Patient states she prefers appointments between 10 am -11 am on . 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 No Advance Directive: Current Advance Directive: Health Care Power of Attorn ey;Living Will In Chart: No Licensed Insurance Agent Attempted to Assist with AD Completion: Y [...] distances. Has the Patient Been in a Senior Living Facility in the Past 30 days? No SOCIAL: Living Arrangement: Home Split Level Home Lives With: Spouse Financial Resources: Disabled Primary Contact: Anders Lincoln [address] [place] [address] [facility] Relation: Spouse Supportive: Yes - [...] 0 I feel financially burdened by my tmr-ny-goodms expens es for my prescription medication: Disagree completely - 0 Patient is categorized as low risk < 2 Patient states she manages her own medications. Spouse assists by picking up her prescriptions. Are you interested in bedside delivery of your medicat ions? No Pharmacy Preference: [facility] Concerns: In the Last Month, Have [...] Needs: None FREEDOM OF CHOICE EXPLAINED: Yes [place] of Choice explained to patient POTENTIAL TRANSITION PLANS Discharge Needs: To Be Determined Patient denies any discharge needs or concerns at this time. Anticipating Home/Self Care Discharge Transportation: Family to Transport - Spouse Patient informed Care Management is available to aid i n discharge planning needs. Primary Care Physician: Augie Romero MD - [facility] ry of Care to be sent at discharge. SIGNATURE: Penny Pate RN PATIENT NAME: Monique Reyes sford DATE: April 18, 2018 TIME: 7:00 PM PAGER/CONTACT #: [phone] CBC and Differential on 04-18-2018 Abs Baso 0.06 k/uL Normal <0.11 [facility] Comment on above: Performed By: #### CBCDIF, C K, CMP, LIPA, MG1 #### [facility] Laboratory [address] [place] [address] Abs Bennett 1.02 k/uL High <0.87 [facility] Comment on above: Performed By: #### CBCDIF, C K, CMP, LIPA, MG1 #### [facility] Laboratory [address] [place], [place] [phone] Abs Neut 9.16 k/uL High 1.45-7.50 [facility] Comment on above: Performed By: #### CBCDIF, C K, CMP, LIPA, MG1 #### [facility] Laboratory [address] [place], [place] [phone] Basophils/100 WBC (Bld) 0.5 % Normal [facility] Comment on above: Performed By: #### CBCDIF, C K, CMP, LIPA, MG1 #### [facility] Laboratory [address] [place], [place] [phone] Eosinophils #/vol (Bld) 0.13 10*3/uL Normal <0.46 [facility] Comment on above: Performed By: #### CBCDIF, C K, CMP, LIPA, MG1 #### [facility] Laboratory [address] Eosinophils/100 WBC (Bld) 1.1 % Normal [facility] Comment on above: Performed By: #### CBCDIF, C K, CMP, LIPA, MG1 #### [facility] Laboratory [address] [place] [address] Erythrocyte distribution width Ratio (RBC) 13.1 % Normal 11.5-15.0 [facility] Comment on above: Performed By: #### CBCDIF, C K, CMP, LIPA, MG1 #### [facility] Laboratory [address] [place] [address] Hematocrit Volume Fraction (Bld) 38.1 % Normal 36.0-46. 0 [facility] Comment on above: Performed By: #### CBCDIF, C K, CMP, LIPA, MG1 #### [facility] Laboratory [address] [place] [address] Hemoglobin mass conc (Bld) 12.4 g/dL Normal 11.5-15.5 [facility] Comment on above: Performed By: #### CBCDIF, C K, CMP, LIPA, MG1 #### [facility] Laboratory [address] [place] [address] Lymphocytes #/vol (Bld) 1.60 10*3/uL Normal 1.00-4.00 [facility] Comment on above: Performed By: #### CBCDIF, C K, CMP, LIPA, MG1 #### [facility] Laboratory [address] [place], [place] [phone] Lymphocytes/100 WBC (Bld) 13.4 % Normal [facility] Comment on above: Performed By: #### CBCDIF, C K, CMP, LIPA, MG1 #### [facility] Laboratory [address] [place] [address] MCH Entitic mass (RBC) 31.6 pG Normal 26.0-34.0 [facility] Comment on above: Performed By: #### CBCDIF, C K, CMP, LIPA, MG1 #### [facility] Laboratory [address] [place] [phone] MCHC mass conc (RBC) 32.5 g/dL Normal 30.5-36.0 [facility] Comment on above: Performed By: #### CBCDIF, C K, CMP, LIPA, MG1 #### [facility] Laboratory [address] [place] [phone] MCV Entitic volume (RBC) 97.2 fL Normal 80.0-100.0 [facility] Comment on above: Performed By: #### CBCDIF, C K, CMP, LIPA, MG1 #### [facility] Laboratory [address] [place] [address] Monocytes/100 WBC (Bld) 8.5 % Normal [facility] Comment on above: Performed By: #### CBCDIF, C K, CMP, LIPA, MG1 #### [facility] Laboratory [address] [place] [address] Neutrophils/100 WBC (Bld) 76.5 % Normal [facility] Comment on above: Performed By: #### CBCDIF, C K, CMP, LIPA, MG1 #### [facility] Laboratory [address] [place] [address] Platelet mean volume Entitic volume (Bld) 11.0 fL Normal 9.0-12.7 [facility] Comment on above: Performed By: #### CBCDIF, C K, CMP, LIPA, MG1 #### [facility] Laboratory [address] [place] [address] Platelets #/vol (Bld) 181 10*3/uL Normal 150-400 [facility] Comment on above: Performed By: #### CBCDIF, C K, CMP, LIPA, MG1 #### [facility] Laboratory [address] RBC #/vol (Bld) 3.92 10*6/uL Normal 3.90-5.20 [facility] Comment on above: Performed By: #### CBCDIF, C K, CMP, LIPA, MG1 #### [facility] Laboratory [address] WBC #/vol (Bld) 11.97 10*3/uL High 3.70-11.00 [facility] Comment on above: Performed By: #### CBCDIF, C K, CMP, LIPA, MG1 #### [facility] Laboratory [address] [facility] [phone] CK on 04-18-2018 CK enzyme act/vol 40 U/L Low 42-196 [facility] Comment on above: Performed By: #### CBCDIF, C K, CMP, LIPA, MG1 #### [facility] Laboratory [address] [facility] [phone] CT ABD/PEL W IVCON on 04-18-2018 CT ABD/PEL W IVCON * * *Final Report* * * Normal [facility] DATE OF EXAM: Apr 18 2018 5:03PM [facility] [place] ABD/PEL W IVCON / [...] Ronni austin on 04/18/2018 at 5:30 PM. Patent Attorney: CONOR Transcribe Date/Time: Apr 18 2018 5:12P Dictated by : SARITHA TIJERINA MD This examination was interpreted and the report review ed and electronically signed by: SARITHA TIJERINA MD on Apr 18 2018 5:39PM EST [id number] Comp Metabolic Panel on 04-18-2018 Albumin mass conc 3.9 g/dL Normal 3.9-4.9 [facility] pital Comment on above: Performed By: #### CBCDIF, C K, CMP, LIPA, MG1 #### [facility] Laboratory [address] [place] [address] ALP enzyme act/vol 98 U/L Normal 34-123 [facility] spital Comment on above: Performed By: #### CBCDIF, C K, CMP, LIPA, MG1 #### [facility] Laboratory [address] [place] [address] ALT enzyme act/vol 28 U/L Normal 7-38 [facility] spital Comment on above: Performed By: #### CBCDIF, C K, CMP, LIPA, MG1 #### [facility] Laboratory [address] [place] [phone] Anion gap molar conc 10 mmol/L Normal 9-18 [facility] Comment on above: Performed By: #### CBCDIF, C K, CMP, LIPA, MG1 #### [facility] Laboratory [address] [place] [phone] AST enzyme act/vol 34 U/L Normal 13-35 [facility] Comment on above: Performed By: #### CBCDIF, C K, CMP, LIPA, MG1 #### [facility] Laboratory [address] [facility] [phone] Bilirubin mass conc 0.5 mg/dL Normal 0.2-1.3 [facility] Comment on above: Performed By: #### CBCDIF, C K, CMP, LIPA, MG1 #### [facility] Laboratory [address] [place] [phone] Calcium mass conc 10.0 mg/dL Normal 8.5-10.2 [facility] pital Comment on above: Performed By: #### CBCDIF, C K, CMP, LIPA, MG1 #### [facility] Laboratory [address] [place] [phone] Chloride molar conc 99 mmol/L Normal 97-105 [facility]spital Comment on above: Performed By: #### CBCDIF, C K, CMP, LIPA, MG1 #### [facility] Laboratory [address] [place] [phone] CO2 molar conc 33 mmol/L High 22-30 [facility] Comment on above: Performed By: #### CBCDIF, C K, CMP, LIPA, MG1 #### [facility] Laboratory [address] [place] [phone] Creatinine mass conc 1.03 mg/dL High 0.58-0.96 [facility] Comment on above: Performed By: #### CBCDIF, C K, CMP, LIPA, MG1 #### [facility] Laboratory [address] [place] [phone] eGFR- Amer. >60 Normal [facility] Comment on above: Performed By: #### CBCDIF, C K, CMP, LIPA, MG1 #### [facility] Laboratory [address] [facility] [phone] GFR/1.73 sq M predicted among non-blacks MDRD vol 54 . Norm al [facility] rate/area (S/P/Bld) Comment on above: Result Comment: [...] K, CMP, LIPA, MG1 #### [facility] Laboratory [address] [facility] [phone] Glucose mass conc 46 mg/dL Low 74-99 [facility] Comment on above: Result Comment: The [place] [employer] (ADA) provides guidance for cutoff [...] of [facility] Diabetes 2016, [place] [employer]. Diabetes Care. 2016.39(Suppl 1). No call per procedure. 04/18/18 1442 ARoberts Performed By: #### CBCDIF, C K, CMP, LIPA, MG1 #### [facility] Laboratory [address] [facility] [phone] Potassium molar conc 3.5 mmol/L Low 3.7-5.1 [facility] Comment on above: Performed By: #### CBCDIF, C K, CMP, LIPA, MG1 #### [facility] Laboratory [address] [facility] [phone] Protein mass conc 7.1 g/dL Normal 6.3-8.0 [facility] Comment on above: Performed By: #### CBCDIF, C K, CMP, LIPA, MG1 #### [facility] Laboratory [address] [facility] [phone] Sodium molar conc 142 mmol/L Normal 136-144 [facility] Comment on above: Performed By: #### CBCDIF, C K, CMP, LIPA, MG1 #### [facility] Laboratory [address] [facility] [phone] Urea nitrogen mass conc 17 mg/dL Normal 7- [facility] Comment on above: Performed By: #### CBCDIF, C K, CMP, LIPA, MG1 #### [facility] Laboratory [address] [facility] [phone] ECG COMPLETE on 04-18-2018 ECG COMPLETE NAME : MONIQUE LINCOLN [facility] PID : [id number] : 1955 Gender : Female Race : ORD : [id number] Procedure Date : Apr 18 2018 13:33:36 Edit Date : Apr 19 2018 09:45:20 Diagnosis:NORMAL SINUS RHYTHM NORMAL ECG WHEN COMPARED WITH ECG OF 23-FEB-2017 15:06, NO SIGNIFICANT CHANGE WAS FOUND agree Confirmed by MD LIZETTE, SANTOSH GERONIMO ([id number]), story editor ROSINA SCHRADER ([id number]) on 04/19/2018 9:45:12 AM Ventricular Rate : 78 BPM Atrial Rate : 78 BPM P-R Interval : 152 ms QRS Duration : 88 ms Q-T Interval : 394 ms QTC Calculation(Bezet) : 449 ms P Pablo : 80 degrees R Pablo : 17 degrees T Pablo : 27 degrees Test Reason : Chest Pain Location : 1 : ER 9 Overread By : MD LIZETTEMILTON Edited By : ROSINA SCHRADER Referred By : LIZETTE Acquired by : IFEOMA BARNETT NOTE on 04-18-2018 ED NOTE HNO ID: [id number] [facility] Author: Noah (Rn) KYLE Barnett Service: [...] and D50 given. ED NOTE HNO ID: [id number] [facility] Author: Noah (Rn) KYLE Barnett Service: (none) Author Type: Registered Nurse Type: ED Notes Filed: 04/18/2018 1:40 PM Note Text: ED NOTE HNO ID: [id number] [facility] Author: Massiel (Rn) KYLE Holm Service: (none) Author Type: Registered Nurse Type: ED Notes Filed: 04/18/2018 11:24 AM Note Text: Patient presents to the ED with N/V and abd pain for a bout a week. ED PROV NOTE on 04-18-2018 Protein mass conc HNO ID: [id number] [facility] Author: Ronni Mcguire DO Service: Emergency Medicine [...] Mother sepsis - Asthma Daughter ICU adm, [facility] ventilation. Social History Social History Main [...] reviewed Triage note reviewed Placed on cardiac surgeon Parenteral analgesia administered Medications administered morphine and [...] at time of disposition: stable SIGNATURE: DO Ronin Dooley DO 04/18/18 1836 HISTORY PHYSICAL on 04-18-2018 HISTORY HNO ID: [id number] [facility] Author: Yvonne Brnaham) Henrique fairchild Service: Hospital Medicine Author Type: Physician Mental Tester Type: HANDP Filed: 04/18/2018 7:53 PM Note Text: Attestation signed by Chepe Ballesteros at 04/18/2018 8:57 PM [facility] STAFF PHYSICIAN NOTE OF PERSONAL INVOLVEMENT IN C ARE I have reviewed the documentation obtained and documen ravi by the team healthcare provider (medical student, fellow, re sident, nurse practitioner or physician records management assistant) and I personally participated in the wise components. I have discussed the case and management of the patient' s care. Acute uncomplicated diverticulitis with hypoglycemia d ue to taking regular insulin dose while having nausea/vomiting. Will observ e overnight. IV antibiotics for now and liquid diet. Chepe Ballesteros MD Hospital Medicine Staff PAGER: [phone] DATE of Service: 04/18/2018 TIME of Service: 8:56 PM SERVICE DATE: 04/18/2018 SERVICE TIME: 7:48 PM HOSPITAL MEDICINE HISTORY AND PHYSICAL PCP: Augie Romero MD NIGHT AND WEEKEND COVERAGE: Nights: [place] [phone]. SUBJECTIVE Chief Complaint: Abdominal pain HPI: This [...] her sugar at home and presented to [facility] ED instead. She reports a [...] Mother sepsis - Asthma Daughter ICU adm, [facility] ventilation. Social History Substance Use Topics [...] with long-term curr ent use of insulin ([facility]) 02/11/1995 - Present Current [...] Assessment AND Plan Assessment: Recent ECHO 02/27/2017 (post-[place]) with worsening RVSP, 64 mmHg. Follow with [...] DAILY 04/18/181930 -- 04/18/181944 pneumatic compression stockings ([place] 04/18/181944 activity - mobilize patient ([place] VTE Prophylaxis: VTE prophylaxis appropriate SIGNATURE: Yvonne Duenas PA-C PATIENT NAME: Monique Wharton DATE: April 18, 2018 TIME: 7:48 PM PAGER/CONTACT #: [phone] Lipase on 04-18-2018 Lipase enzyme act/vol 20 U/L Normal 16-61 [facility] Comment on above: Performed By: #### Jeremiah CHAN K, CMP, LIPA, MG1 #### [facility] Laboratory [address] [facility] [phone] Magnesium on 04-18-2018 Magnesium mass conc 1.8 mg/dL Normal 1.7-2.3 [facility] Comment on above: Performed By: #### ROCIO C K, CMP, LIPA, MG1 #### [facility] [address] [address] Rapid PCR Assay FLU on 04-18-2018 Influenza A PCR Negative Normal [facility] Comment on above: Performed By: #### FLUPCR ## ## [facility] [address] [address] Influenza B PCR Negative Normal [facility] Comment on above: Performed By: #### FLUPCR ## ## [facility] Laboratory [address] [place] [address] Specimen source Nom (Unsp spec) Nasopharyngeal Swab Normal [facility] Comment on above: Performed By: #### FLUPCR ## ## [facility] Laboratory [address] [place] [address] Troponin T on 04-18-2018 Troponin T.cardiac mass conc ug/L Normal 0.000-0.029 [facility] [place] Comment on above: Performed By: #### ELVIRA #### [facility] Laboratory [address] [place] [address] Urinalysis on 04-18-2018 Bilirubin, Urine Negative Normal Negative [facility] Comment on above: Performed By: #### UA ####[facility] [address] [place] [address] 0 Clarity Nom (U) Clear Normal Clear [facility] Comment on above: Performed By: #### UA ####[facility] [address] [place] [address] 0 Color Nom (U) Yellow Normal Yellow [facility] Comment on above: Performed By: #### UA ####[facility] [address] [place] [address] 0 Glucose Ql (U) Negative Normal Negative [facility] Comment on above: Performed By: #### UA ####[facility] [address] [place] [address] 0 Hemoglobin/Blood,Ur Negative Normal Negative [facility] Comment on above: Performed By: #### UA ####[facility] [address] [place] [address] 0 Ketones Ql (U) Negative Normal Negative [facility] Comment on above: Performed By: #### UA ####[facility] [address] [place] [address] 0 Leukest Negative Normal Negative [facility] Comment on above: Performed By: #### UA ####[facility] [address] [place] [address] 0 Nitrite Ql (U) Negative Normal Negative [facility] Comment on above: Performed By: #### UA ####[place] [address] 0 pH (Bld) 6.0 Normal 5.0-8.0 [facility] Comment on above: Performed By: #### UA ####[place] [address] 0 Protein mass conc (U) Negative Normal Negative [facility] Comment on above: Performed By: #### UA ####[place] [address] 0 Specific [place], Ur 1.015 Normal 1.001-1.029 [facility] [place] Comment on above: Performed By: #### UA ####[place] [address] 0 Urobilinogen Qn (U) 0.2 Normal 0.2-1.0 [facility] Comment on above: Performed By: #### UA ####[place] [address] 0 XR CHEST 2V FRONTAL/LAT on 04-18-2018 XR CHEST 2V FRONTAL/LAT * * *Final Report* * * Normal [facility] DATE OF EXAM: Apr 18 2018 1:32PM [...] developing abnormality or acute process. [employer] ly. Patent Attorney: CONOR Transcribe Date/Time: Apr 18 2018 1:36P Dictated by : JUAN ORNELAS MD This examination was interpreted and the report review ed and electronically signed by: JUAN ORNELAS MD on Apr 18 2018 1:37PM EST [id number] Encounters Encounter Date Encounter Type Care Provider Facility Start: 05-31-2020 Patient encounter Augie Romero MD [facility] procedure Work Phone: [phone] Start: 04-30-2020 Patient encounter Augie Romero MD [facility] procedure Work Phone: [phone] Start: 01-30-2020 Patient encounter Augie Romero MD [facility] procedure Work Phone: [phone] Start: 09-26-2019 Patient encounter Augie Romero MD [facility] procedure Work Phone: Start: 06-20-2019 Patient encounter [...] Phone: Start: 04-18-2018 Evaluation and CHEPE BALLESTEROS [facility] End: 04-21-2018 management of inpatient Start: 02-13-2018 Patient encounter Augie Romero [facility] procedure Work Phone: Start: 01-08-2018 Patient encounter Augie Jensenlianna [facility] procedure Work Phone: Start: 09-27-2017 Patient [...] Phone: [Influenza] 12-15-2015 pneumococcal conjugate [facility], 13 valent; Work [...] Dates Details Instructions not documented -[facility] Work Phone: Summary Purpose Family History [...] Records Found Hospital Course Note HNO ID: [id number] Author: Mary penaloza Service: Hospital Medicine Author [...] AUTHOR AUTHOR'S ORGANIZ ATION 04/22/2018 [facility] DATE CREATED AUTHOR AUTHOR'S ORGANIZATIO N 06/20/2019 [facility] DATE CREATED AUTHOR AUTHOR'S ORGANIZATIO N 07/08/2020 [facility] DATE CREATED AUTHOR AUTHOR'S ORGANIZATIO N 02/02/2021 [facility] FOR RECORDS PERTAINING TO PATIENTS WHO [...] BE BASED ON THE PRIMARY CLINICAL RECORDS. [employer] provides no warranty or guarantee of the accuracy or completeness of information in this document.
[2022-03-31 14:53] LABS: Lactic Acid 2.6 mmol/L (0.4-1.9)
[2022-03-31 14:58] LABS: Procalcitonin 1.71 ng/mL (0.00-0.09)
--- OUTSIDE RECORDS SUMMARY | 2022-03-31 15:06 | XMS RPT_ITS | CCD ---
:1955 Author Organization [facility] Care Team Providers Name Role Phone CHEPE BALLESTEROS Admitting Unavailable MARY DIAZ Attending Unavailable Augie Romero Unavailable Augie Mccrary Unavailable Unavailable Zena Coronado Unavailable Unavailable Augie Romero MD Unavailable Unavailable Augie Romero Unavailable Unavailable Zena Coronado MD Unavailable Unavailable Allergies Allergy Reported Allergy Type Date of Reaction(s) Facility Classification Allergen(s) Onset HMG-CoA Reductase Inhibitors (statins) atorvastatin Drug Allergy Myalgia [facility] (1 source) Work Phone: Sulfonamides (antibiotic) Sulfonamides Drug Allergy [facility] (2 sources) (Antibiotic); Work Phone : Translations: [Sulfa Drugs] atorvastatin; Drug Allergy Myalgia [place] (5 sources) Translations: 8 Clinic Oth [facility] [ATORVASTATIN] [place] Repository Doxycycline; Drug Allergy [place] (1 source) Translations: 5 [facility] [DOXYCYCLINE] [place] Rep[facility] Latex; Propensity to [place] (1 source) Translations: adverse 5 [facility] [LATEX] reactions to [place] drug Repository (disorder) Sulfonamides Propensity to [place] (1 source) (Antibiotic); adverse 0 Clinic [facility] r Translations: reactions to [place] [SULFA drug Repository (SULFONAMIDE (disorder) ANTIBIOTICS)] SULFATE SALT; Propensity to [place] (1 source) Translations: adverse 7 [facility] [SULFATE SALT] reactions to [place] drug Repository (disorder) Sulfonamides Allergy to [facility] (4 sources) (Antibiotic) drug (finding) Work Ph one: Sulfonamides Allergy to [facility] (4 sources) (Antibiotic) drug (finding) Work Ph one: Medications Completed/Discontinued Medications Medication Drug Class(es) Dates Sig (Normalized) Sig (Orig inal) [id number] actuat albuterol 0.09 mg/actuat metered d [...] rt : 07-Feb-2015 Active polyethylene glycol 3350 05461 mg powder for oral solution O smotic [...] [Coronary atherosclerosis of unspecified type of vessel, [place] or graft] Deficiency and other anemia Anemia; [...] sources) of drug therapy; Translations: [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 [address] ease fax results to [phone]. Assoc DX: J45.909. - COMPOUNDED PRESCRIPTION Please dispense disability placard. Expiration date: . DX: Coronary artery disease I25.10. - aspirin, enteric coated (ASPIRIN, ENTERIC COATED) 81 mg EC tablet Take 1 tablet by mouth once daily. - fluticasone (FLONASE) 50 mcg/actuation nasal spray Use 1 [place] in each nostril daily at bedtime. - [...] for 3 months anxiety = telephone call [phone]. A telephone visit (audio onl y) between [...] chronic, also stable 'Scores and Scales' PHQ-9 [id number] 01:45PM PHQ-9 Total Score (Please update problem [...] of Immunization due (V05.9) (Z23) History of long-term current use of opiate analgesic ( V58.69) [...] 1/2 TAB DURING THE DAY NEEDED; Therapy: [id number] to (Evaluate:[id number]) Requested f or: [id number]; Last Rx:[id number] (more content not included)... Office Visit (Family [...] breath, wheezing)- 2) Have you returned from [facility] from [place] OR outside of the in the last [...] having little energy - more than h snf the days 5. Poor appetite or overeating [...] of Immunization due (V05.9) (Z23) History of long-term current use of opiate analgesic ( V58.69) (Z79.891) History of Opiate analgesic use agreement exists (more content not included)... TAIWO - [facility] on 07-13-2019 [facility]WO - [facility] Normal [employer] [place], [place] MONIQUE LINCOLN January Date of Female Sex [id number] [place] [address] AddressEnglish (preferred) Language White Race Not or Ethnicity Summary of Care Clinical Content Allergies and Adverse Reacti ons <#[id number]> Encounters <#NU9CBTTC> Family History <#JN9ISWPE> Functional Status <#UK5U4DSN> Immunization <#[id number]> Instructions <#ID0ER PEK> Interventions Provided <#QM3TZDZK> Medications <#GN4JCLVN> Past Medical History <#[id number]> Plan of Care <#TV0CUJKH> Problems <#LD9NHMCA> Procedures <#[id number]> Results <#VB0ORVVI> Social History <#TY7G2IET> Vital Signs <#VU9DRVVL> Other Document Details Health Care Providers Functional [...] 0 Augie Romero MD 20 ML Vial QBE Ultra Blue STRP Quantity: 255 Refills: 0 Star t : 12-Jun-2012 traZODone HCl - 100 MG Oral Tablet TAKE 1 TABLET BY MOUTH EVERYDAY AT BEDTIME Quantity: 90 Refills: 3 Augie Romero MD Start : 20-Sep-2012 QBE Ultra Mini w/Device Kit Quantity: 1 Refills: [...] HbA1c (Bld) [Mass fraction] 8.6 % 0 [facility] Work Phone: COMPREHENSIVE PANEL on 07-18-2018 Albumin [Mass/Vol] 3.7 g/dL Normal 3.4 - 5.0 [facility] Comment on above: Performed By: #### CMP #### [facility] [address] [place] [address] ALP [Catalytic activity/Vol] 109 U/L Normal 33 - 136 [facility] Comment on above: Performed By: #### CMP #### [facility] [address] [place] [address] ALT [Catalytic activity/Vol] 17 U/L Normal 7 - 45 [facility] Comment on above: Result Comment: Patients sally ated with Sulfasalazine may generate falsely decreased results fo r ALT. Performed By: #### CMP #### [facility] [address] [place] [address] Anion gap [Moles/Vol] 14 mmol/L Normal 10 - 20 [facility] Comment on above: Performed By: #### CMP #### [facility] [address] [place] [address] AST [Catalytic activity/Vol] 19 U/L Normal 9 - 39 [facility] Comment on above: Performed By: #### CMP #### [facility] [address] [place] [address] Bilirubin [Mass/Vol] 0.5 mg/dL Normal 0.0 - 1.2 [facility] Comment on above: Performed By: #### CMP #### [facility] [address] [place] [address] Calcium [Mass/Vol] 9.7 mg/dL Normal 8.6 - 10.6 [facility] Comment on above: Performed By: #### CMP #### [facility] [address] [place] [address] Chloride [Moles/Vol] 99 mmol/L Normal 98 - 107 [facility] Comment on above: Performed By: #### CMP #### [facility] [address] [place] [address] Creatinine [Mass/Vol] 0.81 mg/dL Normal 0.50 - 1.05 [facility] Comment on above: Performed By: #### CMP #### [facility] [address] [place] [address] GFR- AM. >60 Normal >60 [facility] Comment on above: Result Comment: CALCULATIONS OF ESTIMATED GFR ARE PERFORMED USING THE MDRD STUDY EQUATIO N FOR THE IDMS-TRACEABLE CREATININE ME THODS. CLIN CHEM 2007;53:766-72 Performed By: #### CMP #### [facility] [address] [place] [address] GFR-NON AM. >60 Normal >60 [facility] Comment on above: Performed By: #### CMP #### [facility] [address] [place] [address] Glucose [Mass/Vol] 173 mg/dL High 74 - 99 [facility] Comment on above: Performed By: #### CMP #### [facility] [address] [place] [address] HCO3 (Bld) [Moles/Vol] 33 mmol/L High 21 - 32 [facility] Comment on above: Performed By: #### CMP #### [facility] [address] [place] [address] Potassium [Moles/Vol] 3.3 mmol/L Low 3.5 - 5.3 [facility] Comment on above: Performed By: #### CMP #### [facility] [address] [place] [address] Protein [Mass/Vol] 6.7 g/dL Normal 6.4 - 8.2 [facility] Comment on above: Performed By: #### CMP #### [facility] [address] [place] [address] Sodium [Moles/Vol] 143 mmol/L Normal 136 - 145 [facility] Comment on above: Performed By: #### CMP #### [facility] [address] [place] [address] Urea nitrogen [Mass/Vol] 13 mg/dL Normal 6 - 23 [facility] Comment on above: Performed By: #### CMP #### [facility] [address] [place] [address] LIPID PANEL (CORONARY RISK 2) on 2018 Cholesterol [Mass/Vol] 176 mg/dL Normal 0 - 199 [facility] Comment on above: Result Comment: . AGE [...] Performed By: #### LIPID ### # [facility] [address] [place] [address] Cholesterol in HDL [Mass/Vol] 34.0 mg/dL Abnormal [facility] Comment on above: Result Comment: . AGE VERY LOW LOW NORMAL HIGH 0-19 Y < 35 < 40 40-45 ---- 20-24 Y ---- < 40 >45 ---- >24 Y ---- < 40 40-60 >60 . Performed By: #### LIPID ### # [facility] [address] [place] [address] Cholesterol in LDL [Mass/Vol] 109 mg/dL High 0 - 99 [facility] Comment on above: Result Comment: . NEAR BORD AGE DESIRABLE OPTIMAL HIGH H IGH VERY HIGH 0-19 Y 0 - 109 --- 110-129 > /= 130 ---- 20-24 Y 0 - 119 --- 120-159 >/= 160 ---- >24 Y 0 - 99 100-129 130-159 160-189 >/=190 . Performed By: #### LIPID ### # [facility] [address] [place] [address] Cholesterol in VLDL [Mass/Vol] 33 mg/dL Normal 0 - 40 [facility] Comment on above: Performed By: #### LIPID ### # [facility] [address] [place] [address] Cholesterol.total/Cholesterol in HDL 5.2 {ratio} Abnormal [facility] [Mass ratio] [place] Comment on above: Result Comment: REF VALUES DESIRABLE < 3.4 HIGH RISK > 5.0 Performed By: #### LIPID ### # [facility] [address] [place] [address] Triglyceride [Mass/Vol] 164 mg/dL High 0 - 149 [facility] Comment on above: Result Comment: . [...] dosing. Performed By: #### LIPID ### # [facility] [address] [place] [address] CBC on 07-17-2018 Erythrocyte distribution width 13.5 % Normal 11.5 - 14. 5 [facility] (RBC) [Ratio] Comment on above: Performed By: #### CBC #### [facility] [address] [place] [address] Hematocrit (Bld) [Volume 39.2 % Normal 36.0 - 46.0 [facility] fraction] Comment on above: Performed By: #### CBC #### [facility] [address] [place] [address] Hemoglobin (Bld) [Mass/Vol] 12.3 g/dL Normal 12.0 - 16.0 [facility] Comment on above: Performed By: #### CBC #### [facility] [address] [place] [address] MCHC (RBC) [Mass/Vol] 31.4 g/dL Low 32.0 - 36.0 [facility] Comment on above: Performed By: #### CBC #### [facility] [address] [place] [address] MCV (RBC) [Entitic vol] 95 fL Normal 80 - 100 [facility] Comment on above: Performed By: #### CBC #### [facility] [address] [place] [address] Nucleated RBC/100 WBC (Bld) 0.0 /100 WBC Normal 0.0-0.0 [facility] [Ratio] Comment on above: Performed By: #### CBC #### [facility] [address] [place] [address] Platelets (Bld) [#/Vol] 193 10*3/uL Normal 150 - 450 [facility] Comment on above: Performed By: #### CBC #### [facility] [address] [place] [address] RBC (Bld) [#/Vol] 4.12 x10E12/L Normal 4.00 - 5.20 [facility] Comment on above: Performed By: #### CBC #### [facility] [address] [place] [address] WBC (Bld) [#/Vol] 8.0 10*3/uL Normal 4.4 - 11.3 [facility] Comment on above: Performed By: #### CBC #### [facility] [address] [place] [address] TSH on 07-17-2018 TSH Qn 3.18 m[IU]/L Normal 0.44 - 3.98 [facility] Comment on above: Result Comment: TSH testing is performed using different testing methodology at [facility] than at other [facility]. Direct res ult comparisons should only be made within the same method. . Patients receiving more than 5 mg/day of biotin may have interference in test results. A sample sh ould be taken no sooner than eight hours after previous dose. Contact [phone] for additional information. Performed By: #### TSH2 #### [facility] [address] [place] [address] Basic Metabolic Panl on 04-21-2018 Anion gap molar conc 13 mmol/L Normal 9-18 [facility] Comment on above: Performed By: #### CBC, BMP ####[facility] [address] [place] [address] 0 Calcium mass conc 9.4 mg/dL Normal 8.5-10.2 [facility] pital Comment on above: Performed By: #### CBC, BMP ####[facility] [address] [place] [address] 0 Chloride molar conc 101 mmol/L Normal 97-105 [facility]spital Comment on above: Performed By: #### CBC, BMP ####[facility] [address] [place] [address] 0 CO2 molar conc 24 mmol/L Normal 22-30 [facility] Comment on above: Performed By: #### CBC, BMP ####[facility] [address] [place] [address] 0 Creatinine mass conc 0.98 mg/dL High 0.58-0.96 [facility] Comment on above: Performed By: #### CBC, BMP ####[facility] [address] [place] [address] 0 eGFR- Amer. >60 Normal [facility] Comment on above: Performed By: #### CBC, BMP ####[facility] [address] [place] [address] 0 GFR/1.73 sq M predicted among non-blacks MDRD vol 58 . Norm al [facility] rate/area (S/P/Bld) Comment on above: Result [...] Performed By: #### CBC, BMP ####[facility] [address] [place] [address] 0 Glucose mass conc 258 mg/dL High 74-99 [facility] pital Comment on above: Result Comment: The [place] Diabetes Association (ADA) provides guidance for cutoff [...] of diabetes. Reference: Standards of [facility] Care in Diabetes 2016, [place] Diabetes Association. Diabetes Care. 2016.39(Suppl 1). Performed By: #### CBC, BMP ####[facility] [address] [place] [address] 0 Potassium molar conc 4.3 mmol/L Normal 3.7-5.1 [facility] Comment on above: Performed By: #### CBC, BMP ####[facility] [address] [place] [address] 0 Sodium molar conc 138 mmol/L Normal 136-144 [facility] Comment on above: Performed By: #### CBC, BMP ####[facility] [address] [place] [address] 0 Urea nitrogen mass conc 14 mg/dL Normal 7-21 [facility] Comment on above: Performed By: #### CBC, BMP ####[facility] [address] [place] [address] 0 CBC on 04-21-2018 Erythrocyte distribution width Ratio (RBC) 13.1 % Normal 11.5-15.0 [facility] Comment on above: Performed By: #### CBC, BMP ####[facility] [address] [place] [address] 0 Hematocrit Volume Fraction (Bld) 33.3 % Low 36.0-46. 0 [facility] Comment on above: Performed By: #### CBC, BMP ####[facility] [address] [place] [address] 0 Hemoglobin mass conc (Bld) 10.7 g/dL Low 11.5-15.5 [facility] Comment on above: Performed By: #### CBC, BMP ####[facility] [address] [place] [address] 0 MCH Entitic mass (RBC) 31.8 pG Normal 26.0-34.0 [facility] Comment on above: Performed By: #### CBC, BMP ####[facility] [address] [place] [address] 0 MCHC mass conc (RBC) 32.1 g/dL Normal 30.5-36.0 [facility] Comment on above: Performed By: #### CBC, BMP ####[facility] [address] [place], [place] [address] 0 MCV Entitic volume (RBC) 98.8 fL Normal 80.0-100.0 [facility] Comment on above: Performed By: #### CBC, BMP ####[facility] [address] [place] [address] 0 Platelet mean volume Entitic volume (Bld) 11.0 fL Normal 9.0-12.7 [facility] Comment on above: Performed By: #### CBC, BMP ####[facility] [address] [place] [address] 0 Platelets #/vol (Bld) 132 10*3/uL Low 150-400 [facility] Comment on above: Performed By: #### CBC, BMP ####[facility] [address] [place] [address] 0 RBC #/vol (Bld) 3.37 10*6/uL Low 3.90-5.20 [facility] Comment on above: Performed By: #### CBC, BMP ####[facility] [address] [place] [address] 0 WBC #/vol (Bld) 5.88 10*3/uL Normal 3.70-11.00 [facility] Comment on above: Performed By: #### CBC, BMP ####[facility] [address] [place] [address] 0 CNCO on 04-21-2018 CNCO Letter Text Normal [facility] April 21, 2018 Monique Lincoln [address] [facility] [address] Dear Ms. Lincoln, The nurses and staff of [facility] hope this wodorow er finds you feeling well and progressing [...] comments, questions or concerns about your [facility] stay, please feel free to contact me, Emma Bass RN ([phone]) or email me at, Additionally, you will [...] participation and thank you for choosing the [facility] for your health needs. Sincerely, Nurse Health Psychologist: Emma Bass RN ([phone]) [facility] Unit: 2 South Basic Metabolic Panl on 04-20-2018 Anion gap molar conc 7 mmol/L Low 9-18 [facility] Comment on above: Performed By: #### CBC, BMP ####[facility] [address] [place] [address] 0 Calcium mass conc 9.1 mg/dL Normal 8.5-10.2 [facility] Comment on above: Performed By: #### CBC, BMP ####[facility] [address] [place] [address] 0 Chloride molar conc 101 mmol/L Normal 97-105 [facility] Comment on above: Performed By: #### CBC, BMP ####[facility] [address] [place] [address] 0 CO2 molar conc 30 mmol/L Normal 22-30 [facility] Comment on above: Performed By: #### CBC, BMP ####[place] [address] 0 Creatinine mass conc 1.46 mg/dL High 0.58-0.96 [facility] Comment on above: Performed By: #### CBC, BMP ####[facility] [address] [place] [address] 0 eGFR- Amer. 44 Normal [facility] Comment on above: Performed By: #### CBC, BMP ####[facility] [address] [place] [address] 0 GFR/1.73 sq M predicted among non-blacks MDRD vol 36 . Norm al [facility] rate/area (S/P/Bld) Comment on above: Result [...] Performed By: #### CBC, BMP ####[facility] [address] [place] [address] 0 Glucose mass conc 105 mg/dL High 74-99 [facility] Comment on above: Result Comment: The [place] Diabetes Association (ADA) provides guidance for cutoff [...] of diabetes. Reference: Standards of [facility] Care in Diabetes 2016, [place] Diabetes Association. Diabetes Care. 2016.39(Suppl 1). Performed By: #### CBC, BMP ####[facility] [address] [place] [address] 0 Potassium molar conc 4.5 mmol/L Normal 3.7-5.1 [facility] Comment on above: Performed By: #### CBC, BMP ####[facility] [address] [place] [address] 0 Sodium molar conc 138 mmol/L Normal 136-144 [facility] Comment on above: Performed By: #### CBC, BMP ####[facility] [address] [place] [address] 0 Urea nitrogen mass conc 21 mg/dL Normal 7-21 [facility] Comment on above: Performed By: #### CBC, BMP ####[facility] [address] [place] [address] 0 CBC on 04-20-2018 Erythrocyte distribution width Ratio (RBC) 13.1 % Normal 11.5-15.0 [facility] Comment on above: Performed By: #### CBC, BMP ####[facility] [address] [place] [address] 0 Hematocrit Volume Fraction (Bld) 32.9 % Low 36.0-46. 0 [facility] Comment on above: Performed By: #### CBC, BMP ####[facility] [address] [place] [address] 0 Hemoglobin mass conc (Bld) 10.7 g/dL Low 11.5-15.5 [facility] Comment on above: Performed By: #### CBC, BMP ####[place] [address] 0 MCH Entitic mass (RBC) 32.4 pG Normal 26.0-34.0 [facility] Comment on above: Performed By: #### CBC, BMP ####[place] [address] 0 MCHC mass conc (RBC) 32.5 g/dL Normal 30.5-36.0 [facility] Comment on above: Performed By: #### CBC, BMP ####[place] [address] 0 MCV Entitic volume (RBC) 99.7 fL Normal 80.0-100.0 [facility] Comment on above: Performed By: #### CBC, BMP ####[place] [address] 0 Platelet mean volume Entitic volume (Bld) 11.1 fL Normal 9.0-12.7 [facility] Comment on above: Performed By: #### CBC, BMP ####[facility] [address] [place] [address] 0 Platelets #/vol (Bld) 134 10*3/uL Low 150-400 [facility] Comment on above: Performed By: #### CBC, BMP ####[facility] [address] [place] [address] 0 RBC #/vol (Bld) 3.30 10*6/uL Low 3.90-5.20 [facility]ah Comment on above: Performed By: #### CBC, BMP ####[facility] [address] [place] [phone] 0 WBC #/vol (Bld) 6.89 10*3/uL Normal 3.70-11.00 [facility] Comment on above: Performed By: #### CBC, BMP ####[facility] [address] [place] [phone] 0 PROGRESS on 04-20-2018 Protein mass conc HNO ID: [id number] Normal [facility] Author: Mary Diaz Service: Hospital Medicine Author Type: Physician Type: Progress Notes Filed: 04/20/2018 4:31 PM Note Text: SERVICE DATE: 04/20/2018 SERVICE TIME: 4:30 PM HOSPITAL MEDICINE PROGRESS NOTE NIGHT AND WEEKEND COVERAGE: Nights: Please [place] [phone]. SUBJECTIVE Interval Events: Symptoms have improved. 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 Follow with [...] DAILY 04/18/181930 -- 04/18/181944 pneumatic compression stockings ([place]) 04/18/181944 activity - mobilize patient ([place], [place]) VTE Prophylaxis: VTE prophylaxis appropriate Plan of care discussed with: Patient SIGNATURE: Mary Diaz MD PATIENT NAME: Monique arellano DATE: April 20, 2018 TIME: 4:30 PM PAGER/CONTACT #: [phone] Basic Metabolic Panl on 04-19-2018 Anion gap molar conc 15 mmol/L Normal - [facility] Comment on above: Performed By: #### CBC, BMP ####[facility] [address] [place] [address] 0 Calcium mass conc 9.1 mg/dL Normal 8.5-10.2 [facility] Comment on above: Performed By: #### CBC, BMP ####[facility] [address] [place] [address] 0 Chloride molar conc 100 mmol/L Normal 97-105 [facility] Comment on above: Performed By: #### CBC, BMP ####[facility] [address] [place] [address] 0 CO2 molar conc 28 mmol/L Normal 22-30 [facility] Comment on above: Performed By: #### CBC, BMP ####[facility] [address] [place] [address] 0 Creatinine mass conc 1.33 mg/dL High 0.58-0.96 [facility] Comment on above: Performed By: #### CBC, BMP ####[facility] [address] [place] [address] 0 eGFR- Amer. 49 Normal [facility] Comment on above: Performed By: #### CBC, BMP ####[facility] [address] [place] [address] 0 GFR/1.73 sq M predicted among non-blacks MDRD vol 40 . Norm al [facility] rate/area (S/P/Bld) Comment on above: Result [...] Performed By: #### CBC, BMP ####[facility] [address] [place] [address] 0 Glucose mass conc 234 mg/dL High 74-99 [facility] Comment on above: Result Comment: The [place] Diabetes Association (ADA) provides guidance for cutoff [...] of diabetes. Reference: Standards of [facility] Care in Diabetes 2016, [place] [employer]. Diabetes Care. 2016.39(Suppl 1). Performed By: #### CBC, BMP ####[facility] [address] [place] [address] 0 Potassium molar conc 4.6 mmol/L Normal 3.7-5.1 [facility] Comment on above: Performed By: #### CBC, BMP ####[facility] [address] [place] [address] 0 Sodium molar conc 143 mmol/L Normal 136-144 [facility] Comment on above: Performed By: #### CBC, BMP ####[facility] [address] [place] [address] 0 Urea nitrogen mass conc 20 mg/dL Normal 7-21 [facility] Comment on above: Performed By: #### CBC, BMP ####[facility] [address] [place] [address] 0 CASE MANAGEM on 04-19-2018 CASE MANAGEM HNO ID: [id number] Normal [facility] Author: Ariana (Kyle) [...] 19, 2018 TIME: 12:34 PM PAGER/CONTACT #: [phone] CBC on 04-19-2018 Erythrocyte distribution width Ratio (RBC) 13.3 % Normal 11.5-15.0 [facility] Comment on above: Performed By: #### CBC, BMP ####[facility] [address] [place] [address] 0 Hematocrit Volume Fraction (Bld) 36.0 % Normal 36.0-46. 0 [facility] Comment on above: Performed By: #### CBC, BMP ####[facility] [address] [place] [address] 0 Hemoglobin mass conc (Bld) 11.5 g/dL Normal 11.5-15.5 [facility] Comment on above: Performed By: #### CBC, BMP ####[place] [address] 0 MCH Entitic mass (RBC) 31.9 pG Normal 26.0-34.0 [facility] Comment on above: Performed By: #### CBC, BMP ####[place] [address] 0 MCHC mass conc (RBC) 31.9 g/dL Normal 30.5-36.0 [facility] Comment on above: Performed By: #### CBC, BMP ####[place] [address] 0 MCV Entitic volume (RBC) 99.7 fL Normal 80.0-100.0 [facility] Comment on above: Performed By: #### CBC, BMP ####[facility] [address] [place] [address] 0 Platelet mean volume Entitic volume (Bld) 11.2 fL Normal 9.0-12.7 [facility] Comment on above: Performed By: #### CBC, BMP ####[facility] [address] [place] [address] 0 Platelets #/vol (Bld) 149 10*3/uL Low 150-400 [facility] Comment on above: Performed By: #### CBC, BMP ####[facility] [address] [place] [address] 0 RBC #/vol (Bld) 3.61 10*6/uL Low 3.90-5.20 [facility] Comment on above: Performed By: #### CBC, BMP ####[facility] [address] [place] [address] 0 WBC #/vol (Bld) 9.98 10*3/uL Normal 3.70-11.00 [facility] Comment on above: Performed By: #### CBC, BMP ####[facility] [address] [place] [address] 0 NURSING PROG on 04-19-2018 Protein HNO ID: [id number] Normal [facility] Author: Magnus (Rn) KYLE [facility] conc Service: (none) Author Type: Registered Nurse Type: Nursing Progress Note Filed: 04/20/2018 4:15 AM Note Text: Nursing Progress Note Patient Name: Monique Lincoln Patient Location: [place] [address] [address] Daily Note: 2043: Patient states she feels [...] by: Magnus Merritt, RN Protein HNO ID: [id number] Normal [facility] Author: Summer (Rn) Pearl, KYLE Hospital conc Service: (none) Author Type: Registered Nurse Type: Nursing Progress Note Filed: 04/19/2018 6:39 PM Note Text: Nursing Progress Note Patient Name: Monique Lincoln Patient Location: [facility] [id number] Daily Note: 1651- Pt given insulin as ordered. aide notified RN of BS of 50. Pt eating and given juice. Notified Yvonne CURRENCY MACHINE OPERATOR. Pt asymptomatic. Wi ll re check sugar in 15 minutes. 170- Sugar re checked , reading 68. Given one more ju ice and re notified Yvonne CURRENCY MACHINE OPERATOR. Will re check BS one more time [...] on 04-19-2018 Protein mass conc HNO ID: [id number] [facility] Author: Yvonne Branham) Henrique Service: Hospital Medicine Author Type: Physician Bill Of Lading Clerk Type: Progress Notes Filed: 04/19/2018 8:09 PM Note Text: SERVICE DATE: 04/19/2018 SERVICE TIME: 3:08 PM HOSPITAL MEDICINE PROGRESS NOTE NIGHT AND WEEKEND COVERAGE: Nights: [place] [facility] [place] [phone]. HPI This is a 63 year old [...] her sugar at home and presented to [facility] ED instead. She reports a few [...] curr ent use of insulin ([facility]) 02/11/1995 - Present Current Assessment AND Plan [...] she got to the [facility] as her blood sugars were in the [...] Assessment AND Plan Assessment: Recent ECHO 02/27/2017 (post-HI) with worsening RVSP, 64 mmHg. Follow with [...] high dose statin Morbid obesity ([facility]) 03/16/2014 - Present Current Assessment AND Plan Assessment: BMI 42 PLAN: Patient counseled on diet and exercise COPD with asthma ([facility]) 02/23/2017 - Present Current Assessment AND Plan [...] DAILY 04/18/181930 -- 04/18/181944 pneumatic compression stockings ([place], [place]) 04/18/181944 activity - mobilize patient ([place]) VTE Prophylaxis: VTE prophylaxis appropriate Plan of care discussed with: Attending, Patient and RN SIGNATURE: Yvonne Duenas PA-C PATIENT NAME: Monique Wharton rd DATE: April 19, 2018 TIME: 3:08 PM PAGER/CONTACT #: [phone] ALLIED HEALTH on 04-18-2018 ALLIED HEALTH HNO ID: [id number] [facility] Author: Holli (Ct) KRISS Gipson Service: (none) Author Type: Clinical Communication Engineer Type: Allied Health Filed: 04/18/2018 5:00 PM [...] PERIPHERAL IV DATA: Inpatient - refer to [facility] RADIOLOGY DEPARTMENT: CT; Exam(s) Completed: Abdomen/P peyman SIGNATURE: KRISS Snyder PATIENT NAME: Monique mathew DATE: April 18, 2018 TIME: 4:59 PM CASE MGT INIT ASSES on 04-18-2018 CASE MGT INIT ZEN HNO ID: [id number] [facility] Author: Penny (Rn) KYLE Pate Service: (none) Author Type: Registered Nurse Type: Care Mgt Initial Assessment Filed: 04/18/2018 7:27 PM Note Text: CARE MANAGEMENT: ASSESSMENT AND DISCHARGE PLAN SERVICE DATE: 04/18/2018 SERVICE TIME: 7:00 PM 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 Introduction made and role of case management china cornell Patient states he is agreeable to assessment questions . Assessment information provided by electronic medical record and patient. PRIMARY CARE PHYSICIAN: Augie Romero MD - confirmed Patient states she prefers appointments between 10 am -11 am on . 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 No Advance Directive: Current Advance Directive: Health Care Power of Attorn ey;Living Will In Chart: No In Mold Coater Attempted to Assist with AD Completion: Y [...] distances. Has the Patient Been in a Half-Way Facility in the Past 30 days? No SOCIAL: Living Arrangement: Home Split Level Home Lives With: Spouse Financial Resources: Disabled Primary Contact: Anders Lincoln [address] [place] [address] [facility] Relation: Spouse Supportive: Yes - Patient confirms [...] 0 I feel financially burdened by my ffi-pd-uvvfpn expens es for my prescription medication: Disagree completely - 0 Patient is categorized as low risk < 2 Patient states she manages her own medications. Spouse assists by picking up her prescriptions. Are you interested in bedside delivery of your medicat ions? No Pharmacy Preference: [facility] Concerns: In the Last Month, Have [...] Needs: None FREEDOM OF CHOICE EXPLAINED: Yes [place] of Choice explained to patient POTENTIAL TRANSITION PLANS Discharge Needs: To Be Determined Patient denies any discharge needs or concerns at this time. Anticipating Home/Self Care Discharge Transportation: Family to Transport - Spouse Patient informed Care Management is available to aid i n discharge planning needs. Primary Care Physician: Augie Romero MD - [facility] ry of Care to be sent at discharge. SIGNATURE: Penny Pate RN PATIENT NAME: Monique Reyes sford DATE: April 18, 2018 TIME: 7:00 PM PAGER/CONTACT #: [phone] CBC and Differential on 04-18-2018 Abs Baso 0.06 k/uL Normal <0.11 [facility] Comment on above: Performed By: #### CBCDIF, C K, CMP, LIPA, MG1 #### [facility] [address] [place] [address] Abs [place] 1.02 k/uL High <0.87 [facility] Comment on above: Performed By: #### CBCDIF, C K, CMP, LIPA, MG1 #### [facility] [address] [place], [place] [phone] Abs Neut 9.16 k/uL High 1.45-7.50 [facility] Comment on above: Performed By: #### CBCDIF, C K, CMP, LIPA, MG1 #### [facility] [address] [place], [place] [phone] Basophils/100 WBC (Bld) 0.5 % Normal [facility] Comment on above: Performed By: #### CBCDIF, C K, CMP, LIPA, MG1 #### [facility] [address] [place], [place] [phone] Eosinophils #/vol (Bld) 0.13 10*3/uL Normal <0.46 [facility] Comment on above: Performed By: #### CBCDIF, C K, CMP, LIPA, MG1 #### [facility] [address] Eosinophils/100 WBC (Bld) 1.1 % Normal [facility] Comment on above: Performed By: #### CBCDIF, C K, CMP, LIPA, MG1 #### [facility] [address] [place] [address] Erythrocyte distribution width Ratio (RBC) 13.1 % Normal 11.5-15.0 [facility] Comment on above: Performed By: #### CBCDIF, C K, CMP, LIPA, MG1 #### [facility] [address] [place] [address] Hematocrit Volume Fraction (Bld) 38.1 % Normal 36.0-46. 0 [facility] Comment on above: Performed By: #### CBCDIF, C K, CMP, LIPA, MG1 #### [facility] [address] [place] [address] Hemoglobin mass conc (Bld) 12.4 g/dL Normal 11.5-15.5 [facility] Comment on above: Performed By: #### CBCDIF, C K, CMP, LIPA, MG1 #### [facility] [address] [place] [address] Lymphocytes #/vol (Bld) 1.60 10*3/uL Normal 1.00-4.00 [facility] Comment on above: Performed By: #### CBCDIF, C K, CMP, LIPA, MG1 #### [facility] [address] [place], [place] [phone] Lymphocytes/100 WBC (Bld) 13.4 % Normal [facility] Comment on above: Performed By: #### CBCDIF, C K, CMP, LIPA, MG1 #### [facility] [address] [place] [address] MCH Entitic mass (RBC) 31.6 pG Normal 26.0-34.0 [facility] Comment on above: Performed By: #### CBCDIF, C K, CMP, LIPA, MG1 #### [facility] [address] [place] [phone] MCHC mass conc (RBC) 32.5 g/dL Normal 30.5-36.0 [facility] Comment on above: Performed By: #### CBCDIF, C K, CMP, LIPA, MG1 #### [facility] [address] [place] [phone] MCV Entitic volume (RBC) 97.2 fL Normal 80.0-100.0 [facility] Comment on above: Performed By: #### CBCDIF, C K, CMP, LIPA, MG1 #### [facility] [address] [place] [address] Monocytes/100 WBC (Bld) 8.5 % Normal [facility] Comment on above: Performed By: #### CBCDIF, C K, CMP, LIPA, MG1 #### [facility] [address] [place] [address] Neutrophils/100 WBC (Bld) 76.5 % Normal [facility] Comment on above: Performed By: #### CBCDIF, C K, CMP, LIPA, MG1 #### [facility] [address] [place] [address] Platelet mean volume Entitic volume (Bld) 11.0 fL Normal 9.0-12.7 [facility] Comment on above: Performed By: #### CBCDIF, C K, CMP, LIPA, MG1 #### [facility] [address] [place] [address] Platelets #/vol (Bld) 181 10*3/uL Normal 150-400 [facility] Comment on above: Performed By: #### CBCDIF, C K, CMP, LIPA, MG1 #### [facility] [address] RBC #/vol (Bld) 3.92 10*6/uL Normal 3.90-5.20 [facility] Comment on above: Performed By: #### CBCDIF, C K, CMP, LIPA, MG1 #### [facility] [address] WBC #/vol (Bld) 11.97 10*3/uL High 3.70-11.00 [facility] Comment on above: Performed By: #### CBCDIF, C K, CMP, LIPA, MG1 #### [facility] [address] [facility] [phone] CK on 04-18-2018 CK enzyme act/vol 40 U/L Low 42-196 [facility] Comment on above: Performed By: #### CBCDIF, C K, CMP, LIPA, MG1 #### [facility] [address] [facility] [phone] CT ABD/PEL W IVCON on 04-18-2018 CT ABD/PEL W IVCON * * *Final Report* * * Normal [facility] DATE OF EXAM: Apr 18 2018 5:03PM [facility] [place] ABD/PEL W IVCON / [...] Ronni austin on 04/18/2018 at 5:30 PM. College Sports Assistant: CONOR Transcribe Date/Time: Apr 18 2018 5:12P Dictated by : SARITHA TIJERINA MD This examination was interpreted and the report review ed and electronically signed by: SARITHA TIJERINA MD on Apr 18 2018 5:39PM EST [id number] Comp Metabolic Panel on 04-18-2018 Albumin mass conc 3.9 g/dL Normal 3.9-4.9 [facility] pital Comment on above: Performed By: #### CBCDIF, C K, CMP, LIPA, MG1 #### [facility] [address] [place] [address] ALP enzyme act/vol 98 U/L Normal 34-123 [facility] spital Comment on above: Performed By: #### CBCDIF, C K, CMP, LIPA, MG1 #### [facility] [address] [place] [address] ALT enzyme act/vol 28 U/L Normal 7-38 [facility]ital Comment on above: Performed By: #### CBCDIF, C K, CMP, LIPA, MG1 #### [facility] [address] [place] [phone] Anion gap molar conc 10 mmol/L Normal 9-18 [facility] Comment on above: Performed By: #### CBCDIF, C K, CMP, LIPA, MG1 #### [facility] [address] [place] [phone] AST enzyme act/vol 34 U/L Normal 13-35 [facility] Comment on above: Performed By: #### CBCDIF, C K, CMP, LIPA, MG1 #### [facility] [address] [facility] [phone] Bilirubin mass conc 0.5 mg/dL Normal 0.2-1.3 [facility] Comment on above: Performed By: #### CBCDIF, C K, CMP, LIPA, MG1 #### [facility] [address] [place] [phone] Calcium mass conc 10.0 mg/dL Normal 8.5-10.2 [facility] pital Comment on above: Performed By: #### CBCDIF, C K, CMP, LIPA, MG1 #### [facility] [address] [place] [phone] Chloride molar conc 99 mmol/L Normal 97-105 [facility]spital Comment on above: Performed By: #### CBCDIF, C K, CMP, LIPA, MG1 #### [facility] [address] [place] [phone] CO2 molar conc 33 mmol/L High 22-30 [facility] Comment on above: Performed By: #### CBCDIF, C K, CMP, LIPA, MG1 #### [facility] [address] [place] [phone] Creatinine mass conc 1.03 mg/dL High 0.58-0.96 [facility] Comment on above: Performed By: #### CBCDIF, C K, CMP, LIPA, MG1 #### [facility] [address] [place] [phone] eGFR- Amer. >60 Normal [facility] Comment on above: Performed By: #### CBCDIF, C K, CMP, LIPA, MG1 #### [facility] [address] [facility] [phone] GFR/1.73 sq M predicted among non-blacks MDRD vol 54 . Norm al [facility] rate/area (S/P/Bld) Comment on above: Result [...] K, CMP, LIPA, MG1 #### [facility] [address] [facility] [phone] Glucose mass conc 46 mg/dL Low 74-99 [facility] Comment on above: Result Comment: The [place] Diabetes [employer] (ADA) provides guidance for cutoff [...] of diabetes. Reference: Standards of [facility] Care in Diabetes 2016, [place] [employer]. Diabetes Care. 2016.39(Suppl 1). No call per procedure. 04/18/18 1442 [place]oberts Performed By: #### CBCDIF, C K, CMP, LIPA, MG1 #### [facility] [address] [facility] [phone] Potassium molar conc 3.5 mmol/L Low 3.7-5.1 [facility] Comment on above: Performed By: #### CBCDIF, C K, CMP, LIPA, MG1 #### [facility] [address] [facility] [phone] Protein mass conc 7.1 g/dL Normal 6.3-8.0 [facility] Comment on above: Performed By: #### CBCDIF, C K, CMP, LIPA, MG1 #### [facility] [address] [facility] [phone] Sodium molar conc 142 mmol/L Normal 136-144 [facility] Comment on above: Performed By: #### CBCDIF, C K, CMP, LIPA, MG1 #### [facility] [address] [facility] [phone] Urea nitrogen mass conc 17 mg/dL Normal 7- [facility] Comment on above: Performed By: #### CBCDIF, C K, CMP, LIPA, MG1 #### [facility] [address] [facility] [phone] ECG COMPLETE on 04-18-2018 ECG COMPLETE NAME : MONIQUE LINCOLN [facility] PID : [id number] : 1955 Gender : Female Race : ORD : [id number] Procedure Date : Apr 18 2018 13:33:36 Edit Date : Apr 19 2018 09:45:20 Diagnosis:NORMAL SINUS RHYTHM NORMAL ECG WHEN COMPARED WITH ECG OF 23-FEB-2017 15:06, NO SIGNIFICANT CHANGE WAS FOUND agree Confirmed by MD LIZETTE, SANTOSH GERONIMO ([id number]), art editor ROSINA SCHRADER ([id number]) on 04/19/2018 9:45:12 AM Ventricular Rate : 78 BPM Atrial Rate : 78 BPM P-R Interval : 152 ms QRS Duration : 88 ms Q-T Interval : 394 ms QTC Calculation(Bezet) : 449 ms P [place] : 80 degrees R [place] : 17 degrees T [place] : 27 degrees Test Reason : Chest Pain Location : 1 : ER 9 Overread By : MD LIZETTECICERO Edited By : ROSINA SCHRADER Referred By : LIZETTE Acquired by : IFEOMA BARNETT NOTE on 04-18-2018 ED NOTE HNO ID: [id number] [facility] Author: Noah (Rn) KYLE Barnett [...] and D50 given. ED NOTE HNO ID: [id number] [facility] Author: Noah (Rn) KYLE Barnett Service: (none) Author Type: Registered Nurse Type: ED Notes Filed: 04/18/2018 1:40 PM Note Text: ED NOTE HNO ID: [id number] [facility] Author: Massiel (Rn) KYLE Holm Service: (none) Author Type: Registered Nurse Type: ED Notes Filed: 04/18/2018 11:24 AM Note Text: Patient presents to the ED with N/V and abd pain for a bout a week. ED PROV NOTE on 04-18-2018 Protein mass conc HNO ID: [id number] [facility] Author: Ronni Mcguire DO Service: Emergency [...] Mother sepsis - Asthma Daughter ICU adm, [facility] ventilation. 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 Parenteral analgesia administered Medications administered morphine and [...] HISTORY PHYSICAL on 04-18-2018 HISTORY HNO ID: [id number] [facility] Author: Yvonne Branham) Henrique fairchild Service: Hospital Medicine Author Type: Physician Bill Of Lading Clerk Type: HANDP Filed: 04/18/2018 7:53 PM Note Text: Attestation signed by Chepe Ballesteros at 04/18/2018 8:57 PM [facility] STAFF PHYSICIAN NOTE OF PERSONAL INVOLVEMENT IN C ARE I have reviewed the documentation obtained and documen ravi by the team healthcare provider (medical student, fellow, re sident, nurse practitioner or physician sales assistants and salespersons) and I personally participated in the wise components. I have discussed the case and management of the patient' s care. Acute uncomplicated diverticulitis with hypoglycemia d ue to taking regular insulin dose while having nausea/vomiting. Will observ e overnight. IV antibiotics for now and liquid diet. Chepe Ballesteros MD Hospital Medicine Staff PAGER: [phone] DATE of Service: 04/18/2018 TIME of Service: 8:56 PM SERVICE DATE: 04/18/2018 SERVICE TIME: 7:48 PM HOSPITAL MEDICINE HISTORY AND PHYSICAL PCP: Augie Romero MD NIGHT AND WEEKEND COVERAGE: Nights: Please [place] [facility] [place] [phone]. SUBJECTIVE Chief Complaint: Abdominal pain HPI: This [...] her sugar at home and presented to [facility] ED instead. She reports a few [...] Mother sepsis - Asthma Daughter ICU adm, [facility] ventilation. Social History Substance Use Topics [...] curr ent use of insulin ([facility]) 02/11/1995 - Present Current Assessment AND Plan [...] Assessment AND Plan Assessment: Recent ECHO 02/27/2017 (post-HI) with worsening RVSP, 64 mmHg. Follow with [...] DAILY 04/18/181930 -- 04/18/181944 pneumatic compression stockings ([place], [place]) 04/18/181944 activity - mobilize patient ([place]) VTE Prophylaxis: VTE prophylaxis appropriate SIGNATURE: Yvonne Duenas PA-C PATIENT NAME: Monique Wharton DATE: April 18, 2018 TIME: 7:48 PM PAGER/CONTACT #: [phone] Lipase on 04-18-2018 Lipase enzyme act/vol 20 U/L Normal 16-61 [facility] Comment on above: Performed By: #### Jeremiah CHAN K, CMP, LIPA, MG1 #### [facility] [address] [facility] [phone] Magnesium on 04-18-2018 Magnesium mass conc 1.8 mg/dL Normal 1.7-2.3 [facility] ospital Comment on above: Performed By: #### ROCIO C K, CMP, LIPA, MG1 #### [facility] [address] [place] [address] Rapid PCR Assay FLU on 04-18-2018 Influenza A PCR Negative Normal [facility] Comment on above: Performed By: #### FLUPCR ## ## [facility] [address] [place] [address] Influenza B PCR Negative Normal [facility] Comment on above: Performed By: #### FLUPCR ## ## [facility] [address] [place] [address] Specimen source Nom (Unsp spec) Nasopharyngeal Swab Normal [facility] Comment on above: Performed By: #### FLUPCR ## ## [facility] [address] [place] [address] Troponin T on 04-18-2018 Troponin T.cardiac mass conc ug/L Normal 0.000-0.029 [facility] Comment on above: Performed By: #### ELVIRA #### [facility] [address] [place] [address] Urinalysis on 04-18-2018 Bilirubin, Urine Negative Normal Negative [facility] Comment on above: Performed By: #### UA ####[facility] [id number] [place] [address] 0 Clarity Nom (U) Clear Normal Clear [facility] Comment on above: Performed By: #### UA ####[facility] [address] [place] [address] 0 Color Nom (U) Yellow Normal Yellow [facility] Comment on above: Performed By: #### UA ####[facility] [id number] [place] [address] 0 Glucose Ql (U) Negative Normal Negative [facility] Comment on above: Performed By: #### UA ####[facility] [id number] [place] [address] 0 Hemoglobin/Blood,Ur Negative Normal Negative [facility] Comment on above: Performed By: #### UA ####[facility] [id number] [place] [address] 0 Ketones Ql (U) Negative Normal Negative [facility] Comment on above: Performed By: #### UA ####[facility] [address] [place] [address] 0 Leukest Negative Normal Negative [facility] Comment on above: Performed By: #### UA ####[facility] [address] [place] [address] 0 Nitrite Ql (U) Negative Normal Negative [facility] Comment on above: Performed By: #### UA ####[place] [address] 0 pH (Bld) 6.0 Normal 5.0-8.0 [facility] Comment on above: Performed By: #### UA ####[place] [address] 0 Protein mass conc (U) Negative Normal Negative [facility] Comment on above: Performed By: #### UA ####[place] [address] 0 Specific [place], Ur 1.015 Normal 1.001-1.029 [facility] Comment on above: Performed By: #### UA ####[place] [address] 0 Urobilinogen Qn (U) 0.2 Normal 0.2-1.0 [facility] Comment on above: Performed By: #### UA ####[place] [address] 0 XR CHEST 2V FRONTAL/LAT on 04-18-2018 XR CHEST 2V FRONTAL/LAT * * *Final Report* * * Normal [facility] DATE OF EXAM: Apr 18 2018 [...] developing abnormality or acute process. Cardiomega ly. [employer] Assistant: CONOR Transcribe Date/Time: Apr 18 2018 1:36P Dictated by : JUAN ORNELAS MD This examination was interpreted and the report review ed and electronically signed by: JUAN ORNELAS MD on Apr 18 2018 1:37PM EST [id number] Encounters Encounter Date Encounter Type Care Provider Facility Start: 05-31-2020 Patient encounter Augie Romero MD [facility] procedure Work Phone: [phone] Start: 04-30-2020 Patient encounter Augie Romero MD [facility] procedure Work Phone: [phone] Start: 01-30-2020 Patient encounter Augie Romero MD [facility] procedure Work Phone: [phone] Start: 09-26-2019 Patient encounter Augie Romero MD [facility] procedure Work Phone: Start: 06-20-2019 Patient encounter [...] 04-18-2018 Evaluation and [facility] 04-21-2018 management of inpatient Start: 02-13-2018 Patient encounter Augie Romero [facility] procedure Work Phone: Start: 01-08-2018 Patient encounter Augie Jensenlianna [facility] procedure Work Phone: Start: 09-27-2017 Patient encounter Augie Romero [facility] procedure Work Phone: Start: 07-06-2017 Patient encounter Augie Jensenlianna [facility] procedure Work Phone: Start: 06-27-2017 Patient encounter Augie Romero [facility] procedure Work Phone: Procedures Date [...] Phone: [Influenza] 12-15-2015 pneumococcal conjugate [facility], 13 valent; Work Brit [...] Dates Details Instructions not documented [facility] Work Phone: Summary Purpose Family History No [...] Records Found Hospital Course Note HNO ID: [id number] Author: Mary penaloza Service: Hospital Medicine Author [...] TEAM: [facility] Doctor: Mary Daiz Primary Care Provider: Augie Romero MD [facility] Members: Treatment Team: Attending Provider: Mary Diaz MY CONDITION AT DISCHARGE: Stable REASON I WAS IN THE HOSPITAL: D (more content not included). .. Additional Source Comments INFORMATION SOURCE (unrecognized section and content) DATE CREATED AUTHOR AUTHOR'S ORGANIZ ATION 04/22/2018 [facility] DATE CREATED AUTHOR AUTHOR'S ORGANIZATIO N 06/20/2019 [facility] DATE CREATED AUTHOR AUTHOR'S ORGANIZATIO N 07/08/2020 [facility] DATE CREATED AUTHOR AUTHOR'S ORGANIZATIO N 02/02/2021 [facility] FOR RECORDS PERTAINING TO PATIENTS WHO [...] BE BASED ON THE PRIMARY CLINICAL RECORDS. [employer] provides no warranty or guarantee of the accuracy or completeness of information in this document.
[2022-03-31] MEDS: Furosemide 40 MG/4 ML Vial IV (17:20)
[2022-03-31 17:31] LABS: Bedside Glucose 100 mg/dL (74-106)
--- NOTE | 2022-03-31 18:05 | PCM.RX.CS ---
Consult Pharmacy has been consulted to manage selected antiobiotic: Vancomycin Type of Consult: New start Suspected Infection: Pneumonia Labs: Sodium 144 mmol/L (136-145) 03/31/22 13:14 Potassium 4.6 mmol/L (3.5-5.1) 03/31/22 13:14 Chloride 101 mmol/L (98-107) 03/31/22 13:14 Carbon Dioxide 37.0 mmol/L (21.0-32.0) H 03/31/22 13:14 Anion Gap 6 (5-15) 03/31/22 13:14 BUN 50 mg/dL (7-18) H 03/31/22 13:14 Creatinine 1.31 mg/dL (0.55-1.02) H 03/31/22 13:14 Est GFR (MDRD) Af Amer 52 mL/min (>60) L 03/31/22 13:14 Est GFR (MDRD) Non-Af 43 mL/min (>60) L 03/31/22 13:14 BUN/Creatinine Ratio 38.2 RATIO (10-20) H 03/31/22 13:14 Glucose 141 mg/dL (74-106) H 03/31/22 13:14 Microbiology: Microbiology 03/31/22 12:10 Nasal Secretion SARS-CoV-2 & FLU Antigen (Rapid) - Final Weight used for dosin kg Estimated Creatinine Clearance: 38ML/MIN Goal Trough: 15-20 mcg/mL Pharmacy Plan for Drug Dosing: Give vanc 2000mg IV x1 initially, then continue with 500mg IV q12h, which was a dose the patient had on a prior admission after being switched to that from q24h dosing. Will check a trough before the 4th total dose. Pharmacy Service will continue to monitor and adjust dosing as required. Follow-Up Labs: Trough Vancomycin Labs to be done on [date and time ordered]: 04/02/22 05:30
[2022-03-31 18:19] LABS: Reflex Lactate? Y
[2022-03-31] MEDS: 0.9% Normal Saline 1,000 ML 999 ML IV ×3 (18:36→22:36)
[2022-03-31 19:24] LABS: Lactic Acid 2.7 mmol/L (0.4-1.9)
[2022-03-31] MEDS: Albuterol 2.5 MG/3 ML VIAL.NEB. INHALATION (19:30)
[2022-03-31] MEDS: Acetaminophen 325 MG Tablet 650 MG PO (20:31)
[2022-03-31] MEDS: Pantoprazole Sodium 40 MG Tablet PO (22:12)
[2022-03-31] MEDS: Montelukast 10 MG Tablet PO (22:12)
[2022-03-31] MEDS: Mirtazapine 15 MG Tablet PO (22:13)
[2022-03-31] MEDS: Senna/Docusate Sodium 1 Tablet PO (22:13)
[2022-03-31] MEDS: Nystatin Powder 15gm Bottle 1 APPLIC TOPICAL (22:13)
[2022-03-31] MEDS: traZODone 100 MG Tablet 150 MG PO (22:18)
[2022-03-31] MEDS: Gabapentin 300 MG Capsule PO (22:25)
[2022-03-31 22:40] LABS: Bedside Glucose 102 mg/dL (74-106)
[2022-03-31] MEDS: fentaNYL 100 MCG/2 ML Ampul 12.5 MCG IV (23:28)
[2022-03-31] MEDS: 0.9% Saline Lock 10 ML Syringe IV (23:29)
[2022-04-01] VITALS (18 sets, daily range): BP systolic 93–136; BP diastolic 49–80; PULSE 72–90; RESP 14–23; TEMP 36.2–37.4; O2SAT 90–100
[2022-04-01] MEDS: fentaNYL 100 MCG/2 ML Ampul 25 MCG IV (04:19)
[2022-04-01] MEDS: 0.9% Saline Lock 10 ML Syringe IV ×5 (04:19→18:44)
[2022-04-01] MEDS: Nystatin Powder 15gm Bottle 1 APPLIC TOPICAL ×3 (04:21→21:09)
[2022-04-01] MEDS: Vancomycin IV 500 MG/100 ML BAG 100 MG IV ×2 (05:08→17:53)
[2022-04-01 05:46] LABS: Absolute Lymphocyte Count 0.76 X10^3/uL (0.83-4.51); Absolute Neutrophil Count 18.3 X10^3/uL (2.0-7.7); Basophil# 0.05 X10^3/uL; Basophil% 0.3 % (0-1); Eosinophil# 0.04 X10^3/uL; Eosinophils% 0.2 % (0-5); Hematocrit 24.9 % (37-47); Hemoglobin 7.3 g/dL (12.0-15.0); Lymphocyte # 0.76 X10^3/ul (0.83-4.51); Lymphocyte % 3.9 % (19-41); Mean Corp Hgb Conc 29.3 g/dL (32-36); Mean Corpuscular Hgb 28.6 pg (27.0-32.0); Mean Corpuscular Volume 97.6 fL (81-99); Mean Platelet Vol. 10.7 fl (6.2-12.0); Monocyte# 0.25 X10^3/uL; Monocyte% 1.3 % (0-10); NRBC Flagged by Analyzer 0 % (0-5); Neutrophil % 93.9 % (47-70); POSITIVE MORPHOLOGY YES; Platelet Count 147 K/mm3 (150-450); RBC Distribution Width CV 18.8 % (11.6-14.6); RBC Distribution Width SD 67.6 fl (35.1-43.9); Red Blood Count 2.55 M/mm3 (4.2-5.4); White Blood Count 19.5 K/mm3 (4.4-11.0)
[2022-04-01 05:50] LABS: Differential Indicated SCAN CRITERIA MET
[2022-04-01 06:11] LABS: ALB/GLOB Ratio 0.4 RATIO (0.9-2.4); AST(SGOT) 20 U/L (15-37); Alanine Aminotransfer ALT/SGPT 12 U/L (13-56); Albumin, Serum 1.8 g/dL (3.2-5.0); Alkaline Phosphatase 140 U/L (45-117); Anion Gap 7 (5-15); BUN 52 mg/dL (7-18); Calcium,Total 8.4 mg/dL (8.5-10.1); Chloride 104 mmol/L (98-107); Creatinine, Serum 1.53 mg/dL (0.55-1.02); EST Glomerular Filtration Rate 36 mL/min (>60); Est Glom Filt Rate - Afr Amer 44 mL/min (>60); Estimated Creatinine Clearance 32.55 ml/min; Glucose 152 mg/dL (74-106); Potassium 5.2 mmol/L (3.5-5.1); Protein, Total 5.8 g/dL (6.4-8.2); Sodium Level 140 mmol/L (136-145)
[2022-04-01 06:12] LABS: Differential Comment SCANNED
[2022-04-01 06:13] LABS: Anisocytosis 1+; Hypochromasia 2+; Microcytosis 1+
[2022-04-01] MEDS: Levothyroxine 100 MCG Tablet PO (06:27)
[2022-04-01] MEDS: Gabapentin 300 MG Capsule PO ×2 (06:27→21:08)
--- NOTE | 2022-04-01 08:09 | PN.HOSP_ITS ---
Subjective Subjective Is on BiPAP, feeling better than admission but still feels generally weak Objective Data Objective Data Vital Signs: Vital Signs Temp Pulse Resp BP Pulse Ox O2 Del Method O2 Flow Rate 97.7 F L 73 19 H 108/58 L 95 Bi-pap 5 04/01/22 06:44 04/01/22 07:40 04/01/22 07:40 04/01/22 06:44 04/01/22 07:40 04/01/22 06:44 04/01/22 05:00 FiO2 35 04/01/22 07:40 Oxygen Flow Rate (L/min) 5 Oxygen Delivery Method Bi-pap Weight: 87.4 kg Body Mass Index (BMI) 31.8 Intake & Output: Intake and Output for Last 24 Hours 03/30/22 03/31/22 04/01/22 23:59 23:59 23:59 Intake Total 3845.0 / 4085.0 390 / 390 Output Total 100 / 100 Balance 3845.0 / 3985.0 290 / 290 Lab / Micro Data Result Diagrams: 04/01/22 05:25 04/01/22 05:25 Labs: Laboratory Results - last 24 hr 03/31/22 13:14: WBC 15.7 H, RBC 3.35 L, Hgb 9.2 L, Hct 32.5 L, MCV 97.0, MCH 27.5, MCHC 28.3 L, RDW Std Deviation 65.1 H, RDW Coeff of Magen 18.4 H, Plt Count 202, MPV 10.3, Immature Gran % (Auto) 0.200, Neut % (Auto) 93.1 H, Lymph % (Auto) 3.4 L, Ritchie % (Auto) 2.3, Eos % (Auto) 0.4, Baso % (Auto) 0.6, Absolute Neuts (auto) 14.7 H, Absolute Lymphs (auto) 0.53 L, Nucleated RBC % 0 03/31/22 13:14: Sodium 144, Potassium 4.6, Chloride 101, Carbon Dioxide 37.0 H, Anion Gap 6, BUN 50 H, Creatinine 1.31 H, Estim Creat Clear Calc 38.01, Est GFR (MDRD) Af Amer 52 L, Est GFR (MDRD) Non-Af 43 L, BUN/Creatinine Ratio 38.2 H, Glucose 141 H, Calcium 9.3, Total Bilirubin 0.60, AST 17, ALT 12 L, Alkaline Phosphatase 216 H, Total Protein 6.8, Albumin 2.1 L, Globulin 4.7 H, Albumin/Globulin Ratio 0.4 L 03/31/22 13:14: B-Natriuretic Peptide 446.9 H 03/31/22 13:14: PT 21.8 H, INR 1.9, APTT 36.2 03/31/22 13:14: Procalcitonin 1.71 H 03/31/22 14:13: Lactic Acid 2.6 H* 03/31/22 17:05: POC Glucose 100 03/31/22 18:35: Lactic Acid 2.7 H* 03/31/22 22:10: POC Glucose 102 04/01/22 05:25: WBC 19.5 H, RBC 2.55 L, Hgb 7.3 L, Hct 24.9 L, MCV 97.6, MCH 28.6, MCHC 29.3 L, RDW Std Deviation 67.6 H, RDW Coeff of Magen 18.8 H, Plt Count 147 L, MPV 10.7, Immature Gran % (Auto) 0.400, Neut % (Auto) 93.9 H, Lymph % (Auto) 3.9 L, Ritchie % (Auto) 1.3, Eos % (Auto) 0.2, Baso % (Auto) 0.3, Absolute Neuts (auto) 18.3 H, Absolute Lymphs (auto) 0.76 L, Nucleated RBC % 0, Differential Comment SCANNED, Hypochromasia 2+, Anisocytosis 1+, Microcytosis 1+ 04/01/22 05:25: Sodium 140, Potassium 5.2 H, Chloride 104, Carbon Dioxide 29.0, Anion Gap 7, BUN 52 H, Creatinine 1.53 H, Estim Creat Clear Calc 32.55, Est GFR (MDRD) Af Amer 44 L, Est GFR (MDRD) Non-Af 36 L, BUN/Creatinine Ratio 34.0 H, Glucose 152 H, Calcium 8.4 L, Total Bilirubin 0.50, AST 20, ALT 12 L, Alkaline Phosphatase 140 H, Total Protein 5.8 L, Albumin 1.8 L, Globulin 4.0, Albumin/Globulin Ratio 0.4 L Micro: Microbiology 03/31/22 12:10 Nasal Secretion SARS-CoV-2 & FLU Antigen (Rapid) - Final ABG Data ABG results: ABG 03/31/22 12:31 Specimen Type ART Sample Site R Brach pH 7.34 L Bicarbonate Actual 33.5 H Total CO2 35 Base Excess 8 H O2 Saturation 91 L O2 % 65 ABG pCO2 62.4 H ABG pO2 66 L Hussain Test Positive Respiration Rate 14 O2 Delivery Device BiPAP Radiography Diagnostic Testing: Radiology Impression Chest X-Ray 03/31/22 11:58 IMPRESSION: Bilateral perihilar and right infrahilar airspace disease suggestive of either pulmonary edema or bilateral pulmonary infiltrates worse on the right side. Electronically Signed: Butch Ling MD at 13:07 EST , Physical Exam Narrative General: Alert, oriented, on BiPAP HEENT: Atraumatic, normocephalic Eyes: Extraocular movements grossly intact Neck: Supple Respiratory: On BiPAP, breath sounds diminished at the bases Cardiovascular: Regular rate and rhythm GI: Soft, nontender, nondistended Extremities: Legs are wrapped Musculoskeletal: Moving all extremities Neuro: No overt focal neurological deficits Skin: No overt rashes appreciated Psych: Cooperative Assessment & Plan Assessment/Plan (1) Acute respiratory failure with hypoxia and hypercapnia: (2) Pneumonia: (3) COPD exacerbation: (4) (HFpEF) heart failure with preserved ejection fraction: (5) Dry gangrene: PLAN: Plan 67-year-old female with history of heart failure with preserved ejection fraction,, CAD, COPD, A-fib, type 2 diabetes, hypothyroidism, SILVER, history of multiple decubitus ulcers who presented to [facility] 2/3 with shortness of breath from the fci. Early in the morning she was hypoglycemic and received glucose and was sent home. She does have chronic respiratory failure on 4 L but presented again later in the day with increasing shortness of breath and hypoxia. She was placed on BiPAP which improved r espiratory status. Chest x-ray showed bilateral perihilar and infrahilar airspace disease concerning for either pulmonary edema or bilateral pulmonary infiltrates. She received Rocephin and azithromycin. She was here in January for heart failure and was diuresed. Her weight is down further from that time and does not report any signs or symptoms of fluid overload. Does complain of cough. #Sepsis secondary possibly secondary to Pneumonia -Present on admission but lab abnormalities on presentation was presumed to be due to her respiratory failure (WBC 15.7, lactic acid 2.7, Pro-Mj 1.71, respiratory rate greater than 20.) -Chest x-ray concerning for pneumonia -Presently on vancomycin and Zosyn -1 out of 2 blood cultures growing gram-positive cocci in clusters -Overall is improving, continue to follow cultures and continue antibiotics. Did receive fluids on admission and concern she could be somewhat overloaded at this time, cautiously giving Lasix #Acute on chronic respiratory failure with hypoxia and hypercapnia with history of COPD on 4 L home O2 -Multifactorial secondary to pneumonia, COPD, SILVER, pulmonary hypertension group 3 +/- CHF -Chest x-ray seems to be pneumonia versus pulmonary edema however it does not have any other signs or symptoms of fluid overload and appears to be compensated from heart failure standpoint, do not think she is in acute exacerbation -Continues to be on BiPAP -We will treat with vancomycin and Zosyn -Sputum culture ordered, urine antigens negative -Given fluids that she received for her low blood pressure and sepsis concern she may now have slight overload which is why it is difficult to wean BiPAP, we will cautiously use Lasix. Do not feel she is in COPD exacerbation we will stop steroids #Chronic heart failure with preserved ejection fraction not in acute exacerbation with additional pulmonary hypertension -Takes bumetanide 2 mg 3 times daily at home and appears held -BNP was 446.9 however most recently was 553 and is always elevated -most recent echo 09/2021 with EF of 55%, moderate mitral and tricuspid valve insufficiency, RVSP of 55 consistent with pulmonary hypertension and indeterminate diastolic dysfunction -Daily weights -On presentation based on review had not seen grossly fluid overloaded but did require significant amount of fluids for her blood pressure and given her infection, now difficult to wean from BiPAP. Will cautiously use IV Lasix monitor daily weights #Chronic normocytic anemia -Likely secondary to chronic disease -Is on iron supplementation -Hemoglobin roughly at baseline, drop was likely due to hemodilution and her oozing/bleeding from venipuncture and lines #CKD stage III unclear subtype -Has widely variable creatinine -On 03/20 was 2.28 and on admission was 1.31, today is 1.53 -Hold [facility] #Dry gangrene -Had left great toe amputation in December 16 due to a nonhealing wound -Currently has dry gangrene and recently saw Dr. Govea on 23 March and will follow-up on the for an angiogram and possible intervention -Local wound care #Type 2 diabetes mellitus -Insulin-dependent, did present with hypoglycemia earlier in the day -Basal and prandial insulin continued, glucose checks and sliding scale insulin -Given recent hypoglycemia will slightly decrease insulin doses especially now that Methylpred is been stopped #Hypothyroidism -Levothyroxine #GERD -On PPI twice daily, this was continued #Diabetic polyneuropathy -Neurontin 300 3 times daily #History of coronary artery disease -Continue aspirin and beta-skyler -Unclear why she is not on a statin, we will discuss #Atrial fibrillation -Continue metoprolol and apixaban #Insomnia -Continue trazodone and Remeron #DVT ppx: On Eliquis chronically Coco Romero MD Time spent in the patient's overall evaluation,decision-making process, review of diagnostic data, adjustment of management, discussion with other providers, nursing nursing and ancillary staff involved in patient's care documentation, 32 Minutes Charges/Coding Visit Charges Inpatient E&M: 50436 Subs Hosp L2
[2022-04-01 08:25] LABS: Bedside Glucose 173 mg/dL (74-106)
[2022-04-01] MEDS: Furosemide 20 MG/2 ML VIAL IV ×3 (10:18→18:44)
[2022-04-01 11:00] LABS: Bedside Glucose 163 mg/dL (74-106)
[2022-04-01] MEDS: Menthol/Lanolin/Calamine/Znox 113 GM Tube 1 APPLIC TOPICAL ×2 (13:13→21:09)
[2022-04-01 16:45] LABS: Bedside Glucose 193 mg/dL (74-106)
--- NOTE | 2022-04-01 17:00 | CASEMGMT ---
Social Work Note reports patient is from [place] and will be here through the weekend. GREG met with patient and introduced herself and role as [facility] [employer]. Patient was laying in bed and agreeable to speak with [employer]. SW inquired about patient's living arrangements. Patient stated she has been staying at [place] for months. Patient inquired about money needing to be sent to her from [place], SW will follow up with [place] about this. Patient states she wants to return to [place] when she is medically cleared to return. SW informed patient she would verify with [place] patient can return as well as send updates. Patient in agreement, no other needs or concerns voiced. GREG contacted staff at [place] to inquire about patient's stay. Daina, RN with [place], reported patient is a [facility] patient and will be able to return when medically ready, precert not needed. GREG inquired about patient having money to be sent to her, Daina unaware of money but will follow up with nursing staff. GREG sent updates to [place] via [employer]. Plan: return to [place] when medically ready Caro WHITAKER, [place]
[2022-04-01 17:09] LABS: Lactic Acid 1.3 mmol/L (0.4-1.9)
[2022-04-01 17:26] LABS: Anion Gap 11 (5-15); BUN 60 mg/dL (7-18); BUN/Creat Ratio 34.5 RATIO (10-20); Calcium,Total 8.4 mg/dL (8.5-10.1); Chloride 105 mmol/L (98-107); Creatinine, Serum 1.74 mg/dL (0.55-1.02); EST Glomerular Filtration Rate 31 mL/min (>60); Est Glom Filt Rate - Afr Amer 38 mL/min (>60); Estimated Creatinine Clearance 28.62 ml/min; Glucose 213 mg/dL (74-106); Potassium 5.8 mmol/L (3.5-5.1); Sodium Level 141 mmol/L (136-145)
[2022-04-01 17:35] LABS: Blood Gas Specimen Type VEN; VBG BASE EXCESS 4 mmol/L (-1.0-3.5); VBG Bicarbonate 26 mmol/L (22-26); VBG PO2 180 mmHg (25-40); VBG SO2 100 % (50-70); VBG TCO2 27 mmol/L (23-33); VBG pCO2 30.2 mmHg (41-51); VBG pH 7.55 (7.32-7.42)
[2022-04-01] MEDS: Juven (unflavored) Packet 1 PACKET PO (17:46)
[2022-04-01] MEDS: Glucerna Shake 120 ML LIQUID PO (17:46)
[2022-04-01] MEDS: Insulin Lispro 100 UNIT/ML INSULN.PEN SC ×2 (17:47)
[2022-04-01] MEDS: Sodium Polystyrene Sulfonate 15 GM/60 ML UDC PO (18:44)
[2022-04-01] MEDS: Acetaminophen 325 MG Tablet 650 MG PO (19:05)
[2022-04-01] MEDS: Insulin Glargine-YFGN 100 UNIT/ML Pen 22 UNIT SC (21:08)
[2022-04-01] MEDS: Pantoprazole Sodium 40 MG Tablet PO (21:08)
[2022-04-01] MEDS: Montelukast 10 MG Tablet PO (21:08)
[2022-04-01] MEDS: Mirtazapine 15 MG Tablet PO (21:08)
[2022-04-01] MEDS: traZODone 100 MG Tablet 150 MG PO (21:08)
[2022-04-01 22:20] LABS: Bedside Glucose 304 mg/dL (74-106)
[2022-04-02] VITALS (13 sets, daily range): BP systolic 113–137; BP diastolic 52–74; PULSE 77–99; RESP 14–22; TEMP 36.6–37.2; O2SAT 96–100
[2022-04-02] MEDS: Levothyroxine 100 MCG Tablet PO (05:08)
[2022-04-02] MEDS: Gabapentin 300 MG Capsule PO ×3 (05:08→22:14)
[2022-04-02] MEDS: Nystatin Powder 15gm Bottle 1 APPLIC TOPICAL ×3 (05:09→22:04)
[2022-04-02] MEDS: Menthol/Lanolin/Calamine/Znox 113 GM Tube 1 APPLIC TOPICAL ×3 (05:09→22:04)
[2022-04-02] MEDS: Vancomycin IV 500 MG/100 ML BAG 100 MG IV (05:09)
[2022-04-02 06:17] LABS: Absolute Lymphocyte Count 0.69 X10^3/uL (0.83-4.51); Absolute Neutrophil Count 14.6 X10^3/uL (2.0-7.7); Basophil# 0.02 X10^3/uL; Basophil% 0.1 % (0-1); Hematocrit 25.7 % (37-47); Hemoglobin 7.5 g/dL (12.0-15.0); Lymphocyte # 0.69 X10^3/ul (0.83-4.51); Lymphocyte % 4.4 % (19-41); Mean Corp Hgb Conc 29.2 g/dL (32-36); Mean Corpuscular Hgb 28.1 pg (27.0-32.0); Mean Corpuscular Volume 96.3 fL (81-99); Mean Platelet Vol. 11.2 fl (6.2-12.0); Monocyte# 0.39 X10^3/uL; Monocyte% 2.5 % (0-10); NRBC Flagged by Analyzer 0 % (0-5); Neutrophil # 14.64 X10^3/uL (2.7-7.7); Neutrophil % 92.4 % (47-70); POSITIVE MORPHOLOGY YES; Platelet Count 161 K/mm3 (150-450); RBC Distribution Width CV 18.8 % (11.6-14.6); RBC Distribution Width SD 65.5 fl (35.1-43.9); Red Blood Count 2.67 M/mm3 (4.2-5.4); White Blood Count 15.8 K/mm3 (4.4-11.0)
[2022-04-02 06:32] LABS: Differential Indicated SCAN CRITERIA MET
[2022-04-02 06:58] LABS: Anisocytosis 1+; Hypochromasia 2+
[2022-04-02 07:07] LABS: ALB/GLOB Ratio 0.4 RATIO (0.9-2.4); AST(SGOT) 32 U/L (15-37); Alanine Aminotransfer ALT/SGPT 19 U/L (13-56); Albumin, Serum 1.8 g/dL (3.2-5.0); Alkaline Phosphatase 140 U/L (45-117); Anion Gap 9 (5-15); BUN 73 mg/dL (7-18); BUN/Creat Ratio 35.3 RATIO (10-20); Calcium,Total 8.8 mg/dL (8.5-10.1); Chloride 101 mmol/L (98-107); Creatinine, Serum 2.07 mg/dL (0.55-1.02); EST Glomerular Filtration Rate 26 mL/min (>60); Est Glom Filt Rate - Afr Amer 31 mL/min (>60); Estimated Creatinine Clearance 24.06 ml/min; Globulin 4.6 g/dL (2.2-4.2); Glucose 322 mg/dL (74-106); Potassium 4.9 mmol/L (3.5-5.1); Protein, Total 6.4 g/dL (6.4-8.2); Sodium Level 137 mmol/L (136-145)
[2022-04-02 07:11] LABS: Vancomycin, Trough Level 28.9 ug/mL (5.0-15.0)
[2022-04-02] MEDS: Insulin Lispro 100 UNIT/ML INSULN.PEN SC ×6 (09:35→17:04)
[2022-04-02] MEDS: Juven (unflavored) Packet 1 PACKET PO ×2 (09:35→17:04)
[2022-04-02 10:01] LABS: Bedside Glucose 272 mg/dL (74-106)
[2022-04-02] MEDS: Furosemide 40 MG/4 ML Vial IV (10:26)
[2022-04-02] MEDS: 0.9% Saline Lock 10 ML Syringe IV (10:26)
[2022-04-02] MEDS: Metoprolol(XL)Succ 50 MG Tablet PO (10:28)
[2022-04-02] MEDS: APIXABAN 5 MG TABLET PO (10:29)
[2022-04-02] MEDS: Pantoprazole Sodium 40 MG Tablet PO ×2 (10:29→22:14)
[2022-04-02] MEDS: Paroxetine 20 MG Tablet PO (10:30)
[2022-04-02] MEDS: Aspirin E.C. 81 MG Tablet PO (10:30)
[2022-04-02] MEDS: Ferrous Sulfate 325 MG Tablet PO (11:24)
[2022-04-02 11:45] LABS: Bedside Glucose 274 mg/dL (74-106)
[2022-04-02 13:30] LABS: Bedside Glucose 295 mg/dL (74-106)
--- NOTE | 2022-04-02 14:55 | PCM.PN.HOSP ---
Subjective Subjective Was able to come off BiPAP today, is doing better overall. Got her aspirin and Eliquis this morning and began having a lot of bleeding from PICC again Objective Data Objective Data Vital Signs: Vital Signs Temp Pulse Resp BP Pulse Ox O2 Del Method O2 Flow Rate 98.2 F 99 16 125/59 H 100 Nasal Cannula 4 04/02/22 10:00 04/02/22 10:28 04/02/22 10:00 04/02/22 10:28 04/02/22 10:00 04/02/22 10:00 04/02/22 10:00 FiO2 30 04/02/22 03:58 Oxygen Flow Rate (L/min) 4 Oxygen Delivery Method Nasal Cannula Weight: 88.7 kg Body Mass Index (BMI) 31.8 Intake & Output: Intake and Output for Last 24 Hours 03/31/22 04/01/22 04/02/22 23:59 23:59 23:59 Intake Total 3845.0 / 4085.0 590 / 590 200 / 200 Output Total 200 / 200 Balance 3845.0 / 3985.0 390 / 390 200 / 200 Medical Nutrition Assessment Dietitian: Malnutrition Criteria Met Start: 04/01/22 11:51 Freq: Status: Active Protocol: Document 04/01/22 11:51 MARCIA (Rec: 04/01/22 11:51 [facility] [id number]) Nutrition Malnutrition Evidence of Malnutrition Exists Yes Malnutrition (severe): Acute Illness/Injury Evidenced By Suboptimal Energy Intake ( Severe),Weight Loss (Severe) Intake Problem Increased Nutrient Needs (specify) Etiology protein related to skin status Signs/Symptoms as evidenced by PI to L buttock, ayad heals, L toes w/ diabetic foot ulcers and non healing L great toe amputation ; receiving Say bid to help w/ wound healing. Status Active Problem Clinical Problem Acute Disease or Injury Related Malnutrition Etiology severe acute malnutrition related to inadequate oral intake Signs/Symptoms as evidenced by unintentional wt loss of 7.4% and po intake meeting <75% of estimated nutritional needs x <2 months. Status Active Problem Recommendation Dietitian Recommendations/Changes Will liberalize diet to Regular d/t signs and symptoms of malnutrition with goal of Cardiac 1800 diandra Carbohydrate Controlled diet Will order 4 oz glucerna shake 4x/day w/ medpass for increased nutrition if consumed Continue Say bid to help w/ skin healing if consumed Lab / Micro Data Result Diagrams: 04/02/22 05:25 04/02/22 05:25 Labs: Laboratory Results - last 24 hr 04/01/22 16:13: POC Glucose 193 H 04/01/22 16:39: Sodium 141, Potassium 5.8 H, Chloride 105, Carbon Dioxide 25.0, Anion Gap 11, BUN 60 H, Creatinine 1.74 H, Estim Creat Clear Calc 28.62, Est GFR (MDRD) Af Amer 38 L, Est GFR (MDRD) Non-Af 31 L, BUN/Creatinine Ratio 34.5 H, Glucose 213 H, Calcium 8.4 L 04/01/22 16:39: Lactic Acid 1.3 04/01/22 16:39: Procalcitonin 21.90 H 04/01/22 21:03: POC Glucose 304 H 04/02/22 05:25: Vancomycin Trough 28.9 H 04/02/22 05:25: WBC 15.8 H, RBC 2.67 L, Hgb 7.5 L, Hct 25.7 L, MCV 96.3, MCH 28.1, MCHC 29.2 L, RDW Std Deviation 65.5 H, RDW Coeff of Magen 18.8 H, Plt Count 161, MPV 11.2, Immature Gran % (Auto) 0.600, Neut % (Auto) 92.4 H, Lymph % (Auto) 4.4 L, [place] % (Auto) 2.5, Eos % (Auto) 0.0, Baso % (Auto) 0.1, Absolute Neuts (auto) 14.6 H, Absolute Lymphs (auto) 0.69 L, Nucleated RBC % 0, Hypochromasia 2+, Anisocytosis 1+ 04/02/22 05:25: Sodium 137, Potassium 4.9, Chloride 101, Carbon Dioxide 27.0, Anion Gap 9, BUN 73 H, Creatinine 2.07 H, Estim Creat Clear Calc 24.06, Est GFR (MDRD) Af Amer 31 L, Est GFR (MDRD) Non-Af 26 L, BUN/Creatinine Ratio 35.3 H, Glucose 322 H, Calcium 8.8, Total Bilirubin 0.40, AST 32, ALT 19, Alkaline Phosphatase 140 H, Total Protein 6.4, Albumin 1.8 L, Globulin 4.6 H, Albumin/Globulin Ratio 0.4 L 04/02/22 09:33: POC Glucose 272 H 04/02/22 11:20: POC Glucose 274 H 04/02/22 13:08: POC Glucose 295 H Micro: Microbiology 03/31/22 15:00 Blood Culture (Wb) - Right Forearm Blood Culture - Preliminary No growth in 48 hours. 03/31/22 14:13 Blood Culture (Wb) - Central Line Bacteria Detection (PCR) - Final Staphylococcus epidermidis mecA Resistance Marker 03/31/22 14:13 Blood Culture (Wb) - Central Line Blood Culture - Preliminary Staphylococcus epidermidis 03/31/22 22:30 Urine, Clean Catch Legionella Antigen - Final 03/31/22 22:30 Urine, Clean Catch Streptococcus pneumoniae Antigen (M - Final 03/31/22 12:10 Nasal Secretion SARS-CoV-2 & FLU Antigen (Rapid) - Final ABG Data ABG results: ABG 04/01/22 17:28 Specimen Type ASHANTI VBG pH 7.55 H VBG pO2 180 H VBG HCO3 26 VBG Total CO2 27 VBG O2 Sat (Calc) 100 H VBG Base Excess 4 H POC Mix VBG pCO2 Pt Tmp 30.2 L Physical Exam Narrative General: Alert, oriented HEENT: Atraumatic, normocephalic Eyes: Extraocular movements grossly intact Neck: Supple Respiratory: No respiratory distress, still some crackles at the bases Cardiovascular: Regular rate GI: Soft, nontender, nondistended Extremities: Legs are wrapped Musculoskeletal: Moving all extremities Neuro: No overt focal neurological deficits Psych: Cooperative Assessment & Plan Assessment/Plan (1) Acute respiratory failure with hypoxia and hypercapnia: (2) Pneumonia: (3) COPD exacerbation: (4) (HFpEF) heart failure with preserved ejection fraction: (5) Dry gangrene: PLAN: Plan 67-year-old female with history of heart failure with preserved ejection fraction, CAD, COPD, A-fib, type 2 diabetes, hypothyroidism, SILVER, history of multiple decubitus ulcers who presented to [facility] 2/3 with shortness of breath from the fpc. Early in the morning she was hypoglycemic and received glucose and was sent home. She does have chronic respiratory failure on 4 L but presented again later in the day with increasing shortness of breath and hypoxia. She was placed on BiPAP which improved respiratory status. Chest x-ray showed bilateral perihilar and infrahilar airspace disease concerning for either pulmonary edema or bilateral pulmonary infiltrates. She received Rocephin and azithromycin. She was here in January for heart failure and was diuresed. Her weight is down further from that time and does not report any signs or symptoms of fluid overload. Does complain of cough. #Sepsis secondary secondary to Pneumonia -Present on admission but lab abnormalities on presentation was presumed to be due to her respiratory failure (WBC 15.7, lactic acid 2.7, Pro-Diandra 1.71, respiratory rate greater than 20.) -Chest x-ray concerning for pneumonia -Presently on vancomycin and Zosyn -1 out of 2 blood cultures growing gram-positive cocci in clusters -Overall is improving, continue to follow cultures and continue antibiotics. Did receive fluids on admission and concern she could be somewhat overloaded at this time, cautiously giving Lasix /: Lactic acid resolved. Remains on Vanco and Zosyn. 1 of 2 blood cultures positive for staph epi. Urine antigens negative, second blood culture pending. Sputum culture collected. MRSA swab sent, if negative and doing well tomorrow may be able to DC. Continue to monitor cultures and de-escalate as appropriate. #Acute on chronic respiratory failure with hypoxia and hypercapnia with history of COPD on 4 L home O2 -Multifactorial secondary to pneumonia, COPD, SILVER, pulmonary hypertension group 3 +/- CHF -Chest x-ray seems to be pneumonia versus pulmonary edema however it does not have any other signs or symptoms of fluid overload and appears to be compensated from heart failure standpoint, do not think she is in acute exacerbation -Continues to be on BiPAP -We will treat with vancomycin and Zosyn -Sputum culture ordered, urine antigens negative -Given fluids that she received for her low blood pressure and sepsis concern she may now have slight overload which is why it is difficult to wean BiPAP, we will cautiously use Lasix. Do not feel she is in COPD exacerbation we will stop steroids 04/02: Respiratory status improved after Lasix and has been off BiPAP but did have bump in kidney function. Lasix given this a.m., will hold tomorrow a.m. dose pending morning labs and evaluation #MIKE on CKD stage III unclear subtype -Has widely variable creatinine -On 03/20 was 2.28 and on admission was 1.31, today is 1.53 -Hold Mobic 2/5: Worsened today after diuresis the respiratory status improved, will hold off on fluids but will also hold tomorrow morning Lasix dose pending exam and lab. We will get urine studies with urine urea to calculate FE urea given that she has been taking diuretics #Chronic heart failure with preserved ejection fraction not in acute exacerbation with additional pulmonary hypertension -Takes bumetanide 2 mg 3 times daily at home and appears held -BNP was 446.9 however most recently was 553 and is always elevated -most recent echo 09/2021 with EF of 55%, moderate mitral and tricuspid valve insufficiency, RVSP of 55 consistent with pulmonary hypertension and indeterminate diastolic dysfunction -Daily weights -On presentation based on review had not seen grossly fluid overloaded but did require significant amount of fluids for her blood pressure and given her infection, now difficult to wean from BiPAP. Will cautiously use IV Lasix monitor daily weights 2/5: Creatinine worsened with Lasix, hold a.m. dose pending exam and a.m. labs. We will also get urine studies #Chronic normocytic anemia -Likely secondary to chronic disease -Is on iron supplementation -Hemoglobin roughly at baseline, drop was likely due to hemodilution and her oozing/bleeding from venipuncture and lines 2/5: After receiving a.m. Eliquis she had significant increase in around lines, continue aspirin but hold Eliquis and reevaluate in a.m. #Dry gangrene -Had left great toe amputation in December 16 due to a nonhealing wound -Currently has dry gangrene and recently saw Dr. Govea on 23 March and will follow-up on the for an angiogram and possible intervention -Local wound care #Type 2 diabetes mellitus -Insulin-dependent, did present with hypoglycemia earlier in the day -Basal and prandial insulin continued, glucose checks and sliding scale insulin -Given recent hypoglycemia will slightly decrease insulin doses especially now that Methylpred is been stopped #Hypothyroidism -Levothyroxine #GERD -On PPI twice daily, this was continued #Diabetic polyneuropathy -Neurontin 300 3 times daily #History of coronary artery disease -Continue aspirin and beta-skyler -Unclear why she is not on a statin, we will discuss #Atrial fibrillation -Continue metoprolol and apixaban 2/5: Holding Eliquis given significant bleeding around lines, reevaluate in the a.m. and restart if able #Insomnia -Continue trazodone and Remeron #DVT ppx: On Eliquis chronically, this was held due to significance of bleeding. If unable to restart in a.m. would benefit from pharmacologic prophylaxis. Will order SCDs but given legs wrapped may not be able to tolerate these Cocosebastien Romero MD Time spent in the patient's overall evaluation,decision-making process, review of diagnostic data, adjustment of management, discussion with other providers, nursing nursing and ancillary staff involved in patient's care documentation, 32 Minutes Charges/Coding Visit Charges Inpatient E&M: 30625 Subs Hosp L2
--- NOTE | 2022-04-02 15:58 | NURSING ---
Surgi foam placed at site to help with oozing.
[2022-04-02 16:30] LABS: Bedside Glucose 279 mg/dL (74-106)
[2022-04-02 17:35] LABS: Bedside Glucose 264 mg/dL (74-106)
[2022-04-02 18:26] LABS: Vancomycin, Trough Level 33.4 ug/mL (5.0-15.0)
--- NOTE | 2022-04-02 18:46 | PCM.RX.CS ---
Consult Pharmacy has been consulted to manage selected antiobiotic: Vancomycin Type of Consult: Follow-up Suspected Infection: Bacteremia Labs: Sodium 137 mmol/L (136-145) 04/02/22 05:25 Potassium 4.9 mmol/L (3.5-5.1) 04/02/22 05:25 Chloride 101 mmol/L (98-107) 04/02/22 05:25 Carbon Dioxide 27.0 mmol/L (21.0-32.0) 04/02/22 05:25 Anion Gap 9 (5-15) 04/02/22 05:25 BUN 73 mg/dL (7-18) H 04/02/22 05:25 Creatinine 2.07 mg/dL (0.55-1.02) H 04/02/22 05:25 Est GFR (MDRD) Af Amer 31 mL/min (>60) L 04/02/22 05:25 Est GFR (MDRD) Non-Af 26 mL/min (>60) L 04/02/22 05:25 BUN/Creatinine Ratio 35.3 RATIO (10-20) H 04/02/22 05:25 Glucose 322 mg/dL (74-106) H 04/02/22 05:25 Vancomycin Trough 33.4 ug/mL (5.0-15.0) H 04/02/22 17:38 Microbiology: Microbiology 03/31/22 15:00 Blood Culture (Wb) - Right Forearm Blood Culture - Preliminary No growth in 48 hours. 03/31/22 14:13 Blood Culture (Wb) - Central Line Bacteria Detection (PCR) - Final Staphylococcus epidermidis mecA Resistance Marker 03/31/22 14:13 Blood Culture (Wb) - Central Line Blood Culture - Preliminary Staphylococcus epidermidis 03/31/22 22:30 Urine, Clean Catch Legionella Antigen - Final 03/31/22 22:30 Urine, Clean Catch Streptococcus pneumoniae Antigen (M - Final 03/31/22 12:10 Nasal Secretion SARS-CoV-2 & FLU Antigen (Rapid) - Final Goal Trough: 15-20 mcg/mL Pharmacy Plan for Drug Dosing: VANCOMYCIN LEVEL RECEIVED Current Vancomycin Dose: 500MG IV Q12 Number of Doses Received: 4 (NOTE: Initial trough cancelled because dose was hung before trough was drawn) Vancomycin Level: 33.4 Hours Since Last Dose: 11.5hr Renal Function: 2.07 Renal Function Trend: significant increase in SCr (1.53 yesterday) Lab/Micro: BCx growing staph, no sensitivity data yet Vancomycin Plan/Comments: Patient had a trough drawn which resulted in a value of 33.4 (goal 15-20). Trough is above therapeutic range likely due to an acute increase in SCr. Will hold subsequent doses of vancomycin until level is <20. Once trough is <20, will resume vancomycin dosing. Pending Level: *RANDOM* level 04/03/22 with AM labs Pharmacy Service will continue to monitor and adjust dosing as required.
[2022-04-02] MEDS: Fluconazole 100 MG Tablet 400 MG PO (22:14)
[2022-04-02] MEDS: Montelukast 10 MG Tablet PO (22:14)
[2022-04-02] MEDS: traZODone 100 MG Tablet 150 MG PO (22:14)
[2022-04-02] MEDS: Mirtazapine 15 MG Tablet PO (22:14)
[2022-04-02] MEDS: Insulin Glargine-YFGN 100 UNIT/ML Pen 22 UNIT SC (22:20)
[2022-04-02 22:46] LABS: Bedside Glucose 248 mg/dL (74-106)
[2022-04-03] VITALS (9 sets, daily range): BP systolic 101–117; BP diastolic 46–64; PULSE 87–105; RESP 14–21; TEMP 36.6–36.9; O2SAT 95–99
[2022-04-03 01:18] LABS: M R Staph aureus DNA By PCR Negative (Negative); Probe Check PASS; Specimen Processing Control PASS
[2022-04-03 04:42] LABS: Urea Nitrogen, Urine 746 mg/dL (NO RANGE EST.); Urine Chloride 11 mmol/L (Not Establ.); Urine Sodium 27 mmol/L (Not Establ.)
[2022-04-03] MEDS: Gabapentin 300 MG Capsule PO ×3 (05:06→22:53)
[2022-04-03] MEDS: Nystatin Powder 15gm Bottle 1 APPLIC TOPICAL ×3 (05:06→23:04)
[2022-04-03] MEDS: Levothyroxine 100 MCG Tablet PO (05:09)
[2022-04-03] MEDS: Menthol/Lanolin/Calamine/Znox 113 GM Tube 1 APPLIC TOPICAL ×3 (05:13→22:35)
[2022-04-03 06:37] LABS: Absolute Lymphocyte Count 1.31 X10^3/uL (0.83-4.51); Absolute Neutrophil Count 15.3 X10^3/uL (2.0-7.7); Basophil# 0.02 X10^3/uL; Basophil% 0.1 % (0-1); Eosinophil# 0.12 X10^3/uL; Eosinophils% 0.7 % (0-5); Hematocrit 25.2 % (37-47); Hemoglobin 7.4 g/dL (12.0-15.0); Lymphocyte # 1.31 X10^3/ul (0.83-4.51); Lymphocyte % 7.6 % (19-41); Mean Corp Hgb Conc 29.4 g/dL (32-36); Mean Corpuscular Hgb 28.1 pg (27.0-32.0); Mean Corpuscular Volume 95.8 fL (81-99); Mean Platelet Vol. 10.7 fl (6.2-12.0); Monocyte# 0.49 X10^3/uL; Monocyte% 2.8 % (0-10); NRBC Flagged by Analyzer 0 % (0-5); Neutrophil # 15.27 X10^3/uL (2.7-7.7); Neutrophil % 88.3 % (47-70); POSITIVE MORPHOLOGY YES; Platelet Count 149 K/mm3 (150-450); RBC Distribution Width CV 18.9 % (11.6-14.6); RBC Distribution Width SD 66.7 fl (35.1-43.9); Red Blood Count 2.63 M/mm3 (4.2-5.4); White Blood Count 17.3 K/mm3 (4.4-11.0)
[2022-04-03 07:23] LABS: Vancomycin, Random Level 29.5 ug/mL (0.0-15.0)
[2022-04-03 07:34] LABS: ALB/GLOB Ratio 0.4 RATIO (0.9-2.4); AST(SGOT) 44 U/L (15-37); Alanine Aminotransfer ALT/SGPT 28 U/L (13-56); Albumin, Serum 1.6 g/dL (3.2-5.0); Alkaline Phosphatase 166 U/L (45-117); Anion Gap 8 (5-15); BUN 85 mg/dL (7-18); BUN/Creat Ratio 40.3 RATIO (10-20); Calcium,Total 8.6 mg/dL (8.5-10.1); Chloride 104 mmol/L (98-107); Creatinine, Serum 2.11 mg/dL (0.55-1.02); Differential Indicated SCAN CRITERIA MET; EST Glomerular Filtration Rate 25 mL/min (>60); Est Glom Filt Rate - Afr Amer 30 mL/min (>60); Globulin 4.4 g/dL (2.2-4.2); Glucose 244 mg/dL (74-106); Potassium 4.1 mmol/L (3.5-5.1); Sodium Level 143 mmol/L (136-145)
--- NOTE | 2022-04-03 07:45 | PCM.RX.CS ---
Consult Pharmacy has been consulted to manage selected antiobiotic: Vancomycin Type of Consult: Follow-up Labs: Sodium 143 mmol/L (136-145) 04/03/22 05:42 Potassium 4.1 mmol/L (3.5-5.1) 04/03/22 05:42 Chloride 104 mmol/L (98-107) 04/03/22 05:42 Carbon Dioxide 31.0 mmol/L (21.0-32.0) 04/03/22 05:42 Anion Gap 8 (5-15) 04/03/22 05:42 BUN 85 mg/dL (7-18) H 04/03/22 05:42 Creatinine 2.11 mg/dL (0.55-1.02) H 04/03/22 05:42 Est GFR (MDRD) Af Amer 30 mL/min (>60) L 04/03/22 05:42 Est GFR (MDRD) Non-Af 25 mL/min (>60) L 04/03/22 05:42 BUN/Creatinine Ratio 40.3 RATIO (10-20) H 04/03/22 05:42 Glucose 244 mg/dL (74-106) H 04/03/22 05:42 Vancomycin Trough 33.4 ug/mL (5.0-15.0) H 04/02/22 17:38 Random Vancomycin 29.5 ug/mL (0.0-15.0) H 04/03/22 05:42 Microbiology: Microbiology 03/31/22 15:00 Blood Culture (Wb) - Right Forearm Blood Culture - Preliminary No growth in 48 hours. 03/31/22 14:13 Blood Culture (Wb) - Central Line Bacteria Detection (PCR) - Final Staphylococcus epidermidis mecA Resistance Marker 03/31/22 14:13 Blood Culture (Wb) - Central Line Blood Culture - Preliminary Staphylococcus epidermidis 03/31/22 22:30 Urine, Clean Catch Legionella Antigen - Final 03/31/22 22:30 Urine, Clean Catch Streptococcus pneumoniae Antigen (M - Final 03/31/22 12:10 Nasal Secretion SARS-CoV-2 & FLU Antigen (Rapid) - Final Goal Trough: 15-20 mcg/mL Pharmacy Plan for Drug Dosing: Random vancomycin level still > 20 mg/dL. Recheck tomorrow with labs. Pharmacy Service will continue to monitor and adjust dosing as required. Follow-Up Labs: Trough Vancomycin - 2/7 @ 0600 Random
[2022-04-03 07:50] LABS: Anisocytosis 1+; Hypochromasia 2+; Platelet Estimate SLT DEC (ADEQ)
[2022-04-03 08:34] LABS: Procalcitonin 10.14 ng/mL (0.00-0.09)
--- NOTE | 2022-04-03 11:04 | WOUNDNOTE ---
wound photo: left foot
--- NOTE | 2022-04-03 11:04 | WOUNDNOTE ---
wound photo: left foot
--- NOTE | 2022-04-03 11:05 | WOUNDNOTE ---
wound photo: right heel
--- NOTE | 2022-04-03 11:06 | WOUNDNOTE ---
wound photo: left heel
--- NOTE | 2022-04-03 11:07 | WOUNDNOTE ---
wound photo: left heel
--- NOTE | 2022-04-03 11:08 | WOUNDNOTE ---
wound photo: right lower leg
[2022-04-03] MEDS: Aspirin E.C. 81 MG Tablet PO (12:08)
[2022-04-03] MEDS: Paroxetine 20 MG Tablet PO (12:10)
[2022-04-03] MEDS: Pantoprazole Sodium 40 MG Tablet PO ×2 (12:10→22:38)
[2022-04-03] MEDS: Ferrous Sulfate 325 MG Tablet PO (12:13)
[2022-04-03] MEDS: Acetaminophen 325 MG Tablet 650 MG PO ×2 (12:13→18:19)
[2022-04-03 12:20] LABS: Bedside Glucose 164 mg/dL (74-106)
[2022-04-03] MEDS: Insulin Lispro 100 UNIT/ML INSULN.PEN SC ×4 (12:20→17:43)
--- NOTE | 2022-04-03 13:53 | PN.HOSP_ITS ---
Subjective Subjective Patient is a 67-year-old lady with multiple comorbidities admitted with progressive shortness of breath and assessment of sepsis as well as acute on chronic hypoxic respiratory failure secondary to pneumonia made Objective Data Objective Data Vital Signs: Vital Signs Temp Pulse Resp BP Pulse Ox O2 Del Method O2 Flow Rate 97.9 F 98 20 H 101/46 L 96 Bi-pap 4 04/03/22 04:00 04/03/22 12:11 04/03/22 07:24 04/03/22 12:11 04/03/22 07:24 04/03/22 04:00 04/02/22 22:10 FiO2 30 04/03/22 07:24 Oxygen Flow Rate (L/min) 4 Oxygen Delivery Method Bi-pap Weight: 88.5 kg Body Mass Index (BMI) 31.8 Intake & Output: Intake and Output for Last 24 Hours 04/01/22 04/02/22 04/03/22 23:59 23:59 23:59 Intake Total 590 / 590 970 / 970 170 / 170 Output Total 200 / 200 200 / 200 200 / 200 Balance 390 / 390 770 / 770 -30 / -30 Medical Nutrition Assessment Dietitian: Malnutrition Criteria Met Start: 04/01/22 11:51 Freq: Status: Active Protocol: Document 04/01/22 11:51 MARCIA (Rec: 04/01/22 11:51 SLA [id number]) Nutrition Malnutrition Evidence of Malnutrition Exists Yes Malnutrition (severe): Acute Illness/Injury Evidenced By Suboptimal Energy Intake ( Severe),Weight Loss (Severe) Intake Problem Increased Nutrient Needs (specify) Etiology protein related to skin status Signs/Symptoms as evidenced by PI to L buttock, ayad heals, L toes w/ diabetic foot ulcers and non healing L great toe amputation ; receiving Say bid to help w/ wound healing. Status Active Problem Clinical Problem Acute Disease or Injury Related Malnutrition Etiology severe acute malnutrition related to inadequate oral intake Signs/Symptoms as evidenced by unintentional wt loss of 7.4% and po intake meeting <75% of estimated nutritional needs x <2 months. Status Active Problem Recommendation Dietitian Recommendations/Changes Will liberalize diet to Regular d/t signs and symptoms of malnutrition with goal of Cardiac 1800 diandra Carbohydrate Controlled diet Will order 4 oz glucerna shake 4x/day w/ medpass for increased nutrition if consumed Continue Say bid to help w/ skin healing if consumed Lab / Micro Data Result Diagrams: 04/03/22 05:42 04/03/22 05:42 Labs: Laboratory Results - last 24 hr 04/02/22 15:55: POC Glucose 279 H 04/02/22 17:02: POC Glucose 264 H 04/02/22 17:38: Vancomycin Trough 33.4 H 04/02/22 19:45: MRSA (PCR) Negative 04/02/22 22:20: POC Glucose 248 H 04/03/22 03:45: Ur Random Sodium 27, Urine Creatinine 52.10, Urine Potassium 33.0, Urine Chloride 11, Urine Urea Nitrogen 746 04/03/22 05:42: Procalcitonin 10.14 H 04/03/22 05:42: WBC 17.3 H, RBC 2.63 L, Hgb 7.4 L, Hct 25.2 L, MCV 95.8, MCH 28.1, MCHC 29.4 L, RDW Std Deviation 66.7 H, RDW Coeff of Magen 18.9 H, Plt Count 149 L, MPV 10.7, Immature Gran % (Auto) 0.500, Neut % (Auto) 88.3 H, Lymph % (Auto) 7.6 L, [place] % (Auto) 2.8, Eos % (Auto) 0.7, Baso % (Auto) 0.1, Absolute Neuts (auto) 15.3 H, Absolute Lymphs (auto) 1.31, Nucleated RBC % 0, Platelet Estimate SLT DEC, Hypochromasia 2+, Anisocytosis 1+ 04/03/22 05:42: Sodium 143, Potassium 4.1, Chloride 104, Carbon Dioxide 31.0, Anion Gap 8, BUN 85 H, Creatinine 2.11 H, Estim Creat Clear Calc 23.60, Est GFR (MDRD) Af Amer 30 L, Est GFR (MDRD) Non-Af 25 L, BUN/Creatinine Ratio 40.3 H, Glucose 244 H, Calcium 8.6, Total Bilirubin 0.40, AST 44 H, ALT 28, Alkaline Phosphatase 166 H, Total Protein 6.0 L, Albumin 1.6 L, Globulin 4.4 H, Albumin/Globulin Ratio 0.4 L 04/03/22 05:42: Random Vancomycin 29.5 H 04/03/22 11:19: POC Glucose 164 H Micro: Microbiology 03/31/22 14:13 Blood Culture (Wb) - Central Line Bacteria Detection (PCR) - Final Staphylococcus epidermidis mecA Resistance Marker 03/31/22 14:13 Blood Culture (Wb) - Central Line Blood Culture - Preliminary Staphylococcus epidermidis 03/31/22 15:00 Blood Culture (Wb) - Right Forearm Blood Culture - Prelim inary No growth in 48 hours. 03/31/22 22:30 Urine, Clean Catch Legionella Antigen - Final 03/31/22 22:30 Urine, Clean Catch Streptococcus pneumoniae Antigen (M - Fi nal 03/31/22 12:10 Nasal Secretion SARS-CoV-2 & FLU Antigen (Rapid) - Final Physical Exam Narrative GENERAL: cooperative but on BiPAP HEENT: Atraumatic; normocephalic EYES; Anicteric, Normal Conjunctiva NECK; supple, normal thyroid, RESPIRATORY: Diminished to auscultation CARDIOVASCULAR: Regular S1 S2, GI: soft, normoactive bowel sounds, : No Renal angle tenderness; EXTREMITIES: No edema, no clubbing, MUSCULOSKELETAL: no muscle wasting NEURO: Awake; no lateralizing signs. SKIN: No Rash PSYCH; Flat affect Assessment & Plan Assessment/Plan (1) Pneumonia: PLAN: Plan Patient is a 67-year-old lady with multiple comorbidities admitted with progressive shortness of breath and assessment of sepsis as well as acute on chronic hypoxic respiratory failure secondary to pneumonia made 1. Sepsis ? Secondary to pneumonia ? Patient admitted to a monitored bed management broad-spectrum antibiotic therapy with vancomycin and Zosyn. Blood cultures came back positive 1 out of 2 bottles for gram-positive cocci in clusters. 10 out to be staph epi. 2. Acute on chronic hypoxic respiratory failure ? Secondary to pneumonia management of patient pneumonia as described above. Patient managed on noninvasive ventilation with BiPAP 3. Acute kidney injury ? Superimposed on chronic kidney disease stage III ? Kidney function on admission was 2.28 did improve with rehydration 4. Chronic congestive heart failure with preserved ejection fraction ? EF of 55% patient is on diuretics with monitoring of strict input and output Daily weight as well as creatinine 5. Anemia - Secondary to chronic disorder monitoring H&H and transfuse if patient becomes symptomatic or hemoglobin falls below 7 6. 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 Patient underwent left great toe amputation on 12/16/2021. Patient is followed by vascular surgeon Dr. Govea plan is for patient to undergo angiogram with possible intervention if needed 7. Class I obesity BMI of 32.5 ? Weight loss advised 8. Diabetes mellitus type 2 I did continue the patient home insulin regimen in addition to Accu-Cheks before meals and at bedtime with sliding scale coverage 9. Hypothyroidism - Patient is on levothyroxine home dose continued 10. Diabetic polyneuropathy ? Patient is on Neurontin 300 mg p.o. 3 times daily continued 11. Paroxysmal A-fib ? Rate controlled on metoprolol and systemic anticoagulation with apixaban which was held after patient was found to be bleeding around headlines plan is to resume as soon as possible 12. Coronary artery disease ? We will continue patient aspirin as well as beta-blockers 13. DVT prophylaxis ? On Eliquis Time spent in the patient's overall evaluation,decision-making process, review of diagnostic data, adjustment of management, discussion with other providers, nursing nursing and ancillary staff involved in patient's care documentation, 55 minutes Charges/Coding Visit Charges Inpatient E&M: 58869 [facility] L3
--- NOTE | 2022-04-03 14:45 | CASEMGMT ---
Social Work Pt is from [place]. Phone call placed to [facility] and GREG spoke with RHONA Paniagua who states pt will need precert prior to return. Pt is not medically ready at this time, precert not started. SW will continue to follow for placement. Plan: [facility]ra, pending precert JAYY Tijerina
[2022-04-03] MEDS: Juven (unflavored) Packet 1 PACKET PO (17:43)
[2022-04-03 18:40] LABS: Bedside Glucose 245 mg/dL (74-106)
[2022-04-03] MEDS: traZODone 100 MG Tablet 150 MG PO (22:36)
[2022-04-03] MEDS: Montelukast 10 MG Tablet PO (22:39)
[2022-04-03] MEDS: Senna/Docusate Sodium 1 Tablet PO (22:39)
[2022-04-03] MEDS: Mirtazapine 15 MG Tablet PO (22:39)
[2022-04-03] MEDS: Fluconazole 100 MG Tablet 200 MG PO (22:40)
[2022-04-03] MEDS: Insulin Glargine-YFGN 100 UNIT/ML Pen 22 UNIT SC (22:57)
[2022-04-04] VITALS (8 sets, daily range): BP systolic 109–136; BP diastolic 50–84; PULSE 78–109; RESP 14–23; TEMP 36.2–36.8; O2SAT 91–99
[2022-04-04 02:11] LABS: Bedside Glucose 195 mg/dL (74-106)
[2022-04-04] MEDS: Menthol/Lanolin/Calamine/Znox 113 GM Tube 1 APPLIC TOPICAL ×3 (05:50→21:52)
[2022-04-04] MEDS: Levothyroxine 100 MCG Tablet PO (05:50)
[2022-04-04] MEDS: Nystatin Powder 15gm Bottle 1 APPLIC TOPICAL ×3 (05:51→21:51)
[2022-04-04] MEDS: Gabapentin 300 MG Capsule PO ×3 (05:57→21:50)
[2022-04-04] MEDS: Psyllium 1 PACKET PO (05:58)
[2022-04-04 07:21] LABS: Absolute Lymphocyte Count 1.09 X10^3/uL (0.83-4.51); Absolute Neutrophil Count 10.3 X10^3/uL (2.0-7.7); Basophil# 0.02 X10^3/uL; Basophil% 0.2 % (0-1); Eosinophil# 0.42 X10^3/uL; Eosinophils% 3.4 % (0-5); Hematocrit 26.6 % (37-47); Hemoglobin 7.5 g/dL (12.0-15.0); Lymphocyte # 1.09 X10^3/ul (0.83-4.51); Lymphocyte % 8.8 % (19-41); Mean Corp Hgb Conc 28.2 g/dL (32-36); Mean Corpuscular Volume 95.7 fL (81-99); Mean Platelet Vol. 10.9 fl (6.2-12.0); NRBC Flagged by Analyzer 0 % (0-5); Neutrophil # 10.28 X10^3/uL (2.7-7.7); Neutrophil % 82.8 % (47-70); POSITIVE MORPHOLOGY YES; Platelet Count 150 K/mm3 (150-450); RBC Distribution Width CV 18.9 % (11.6-14.6); RBC Distribution Width SD 66.5 fl (35.1-43.9); Red Blood Count 2.78 M/mm3 (4.2-5.4); White Blood Count 12.4 K/mm3 (4.4-11.0)
[2022-04-04 07:28] LABS: Differential Indicated SCAN CRITERIA MET
[2022-04-04 07:57] LABS: Anion Gap 6 (5-15); BUN 75 mg/dL (7-18); BUN/Creat Ratio 40.1 RATIO (10-20); Calcium,Total 8.8 mg/dL (8.5-10.1); Chloride 110 mmol/L (98-107); Creatinine, Serum 1.87 mg/dL (0.55-1.02); EST Glomerular Filtration Rate 29 mL/min (>60); Est Glom Filt Rate - Afr Amer 35 mL/min (>60); Estimated Creatinine Clearance 26.63 ml/min; Glucose 180 mg/dL (74-106); Magnesium 1.9 mg/dL (1.6-2.6); Phosphorus 2.2 mg/dL (2.5-4.9); Potassium 3.8 mmol/L (3.5-5.1); Sodium Level 146 mmol/L (136-145)
[2022-04-04 08:09] LABS: Anisocytosis 2+; Differential Comment SCANNED
--- NOTE | 2022-04-04 08:16 | PCM.PN.HOSP ---
Subjective Subjective Patient has been weaned off BiPAP currently on nasal cannula. Hemoglobin remains relatively low at 7.5. Objective Data Objective Data Vital Signs: Vital Signs Temp Pulse Resp BP Pulse Ox O2 Del Method O2 Flow Rate 98.1 F 86 18 136/66 H 97 Nasal Cannula 4 04/04/22 03:00 04/04/22 03:20 04/04/22 03:20 04/04/22 03:00 04/04/22 03:20 04/04/22 03:00 04/04/22 03:00 FiO2 30 04/04/22 03:20 Oxygen Flow Rate (L/min) 4 Oxygen Delivery Method Nasal Cannula Weight: 90.8 kg Body Mass Index (BMI) 31.8 Intake & Output: Intake and Output for Last 24 Hours 04/02/22 04/03/22 04/04/22 23:59 23:59 23:59 Intake Total 970 / 970 990 / 990 Output Total 200 / 200 800 / 1000 200 / 200 Balance 770 / 770 190 / -10 -200 / -200 Medical Nutrition Assessment Dietitian: Malnutrition Criteria Met Start: 04/01/22 11:51 Freq: Status: Active Protocol: Document 04/01/22 11:51 [facility] (Rec: 04/01/22 11:51 [facility] [id number]) Nutrition Malnutrition Evidence of Malnutrition Exists Yes Malnutrition (severe): Acute Illness/Injury Evidenced By Suboptimal Energy Intake ( Severe),Weight Loss (Severe) Intake Problem Increased Nutrient Needs (specify) Etiology protein related to skin status Signs/Symptoms as evidenced by PI to L buttock, ayad heals, L toes w/ diabetic foot ulcers and non healing L great toe amputation ; receiving Say bid to help w/ wound healing. Status Active Problem Clinical Problem Acute Disease or Injury Related Malnutrition Etiology severe acute malnutrition related to inadequate oral intake Signs/Symptoms as evidenced by unintentional wt loss of 7.4% and po intake meeting <75% of estimated nutritional needs x <2 months. Status Active Problem Recommendation Dietitian Recommendations/Changes Will liberalize diet to Regular d/t signs and symptoms of malnutrition with goal of Cardiac 1800 diandra Carbohydrate Controlled diet Will order 4 oz glucerna shake 4x/day w/ medpass for increased nutrition if consumed Continue Say bid to help w/ skin healing if consumed Lab / Micro Data Result Diagrams: 04/04/22 06:33 04/04/22 06:33 Labs: Laboratory Results - last 24 hr 04/03/22 05:42: Procalcitonin 10.14 H 04/03/22 11:19: POC Glucose 164 H 04/03/22 17:39: POC Glucose 245 H 04/03/22 22:46: POC Glucose 195 H 04/04/22 06:33: Random Vancomycin 20.0 H 04/04/22 06:33: WBC 12.4 H, RBC 2.78 L, Hgb 7.5 L, Hct 26.6 L, MCV 95.7, MCH 27.0, MCHC 28.2 L, RDW Std Deviation 66.5 H, RDW Coeff of Magen 18.9 H, Plt Count 150, MPV 10.9, Immature Gran % (Auto) 0.800, Neut % (Auto) 82.8 H, Lymph % (Auto) 8.8 L, [place] % (Auto) 4.0, Eos % (Auto) 3.4, Baso % (Auto) 0.2, Absolute Neuts (auto) 10.3 H, Absolute Lymphs (auto) 1.09, Nucleated RBC % 0, Differential Comment SCANNED, Anisocytosis 2+ 04/04/22 06:33: Sodium 146 H, Potassium 3.8, Chloride 110 H, Carbon Dioxide 30.0, Anion Gap 6, BUN 75 H, Creatinine 1.87 H, Estim Creat Clear Calc 26.63, Est GFR (MDRD) Af Amer 35 L, Est GFR (MDRD) Non-Af 29 L, BUN/Creatinine Ratio 40.1 H, Glucose 180 H, Calcium 8.8, Phosphorus 2.2 L, Magnesium 1.9 Micro: Microbiology 03/31/22 14:13 Blood Culture (Wb) - Central Line Bacteria Detection (PCR) - Final Staphylococcus epidermidis mecA Resistance Marker 03/31/22 14:13 Blood Culture (Wb) - Central Line Blood Culture - Final Staphylococcus epidermidis 03/31/22 15:00 Blood Culture (Wb) - Right Forearm Blood Culture - Preliminary No growth in 48 hours. 03/31/22 22:30 Urine, Clean Catch Legionella Antigen - Final 03/31/22 22:30 Urine, Clean Catch Streptococcus pneumoniae Antigen (M - Final 03/31/22 12:10 Nasal Secretion SARS-CoV-2 & FLU Antigen (Rapid) - Final Physical Exam Narrative GENERAL: cooperative but on BiPAP HEENT: Atraumatic; normocephalic EYES; Anicteric, Normal Conjunctiva NECK; supple, normal thyroid, RESPIRATORY: Diminished to auscultation CARDIOVASCULAR: Regular S1 S2, GI: soft, normoactive bowel sounds, : No Renal angle tenderness; EXTREMITIES: No edema, no clubbing, MUSCULOSKELETAL: no muscle wasting NEURO: Awake; no lateralizing signs. SKIN: No Rash PSYCH; Flat affect Assessment & Plan Assessment/Plan (1) Pneumonia: PLAN: Plan Patient is a 67-year-old lady with multiple comorbidities admitted with progressive shortness of breath and assessment of sepsis as well as acute on chronic hypoxic respiratory failure secondary to pneumonia made 1. Sepsis ? Secondary to pneumonia ? Patient admitted to a monitored bed management broad-spectrum antibiotic therapy with vancomycin and Zosyn. Blood cultures came back positive 1 out of 2 bottles for gram-positive cocci in clusters. 10 out to be staph epi. 2. Acute on chronic hypoxic respiratory failure ? Secondary to pneumonia management of patient pneumonia as described above. Patient managed on noninvasive ventilation with BiPAP ? 04/04/2022 patient has been weaned off noninvasive ventilation currently on nasal cannula 3. Acute kidney injury ? Superimposed on chronic kidney disease stage III ? Kidney function on admission was 2.28 did improve with rehydration 4. Chronic congestive heart failure with preserved ejection fraction ? EF of 55% patient is on diuretics with monitoring of strict input and output Daily weight as well as creatinine 5. Anemia - Secondary to chronic disorder monitoring H&H and transfuse if patient becomes symptomatic or hemoglobin falls below 7 6. 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 Patient underwent left great toe amputation on 12/16/2021. Patient is followed by vascular surgeon Dr. Govea plan is for patient to undergo angiogram with possible intervention if needed 7. Class I obesity BMI of 32.5 ? Weight loss advised 8. Diabetes mellitus type 2 I did continue the patient home insulin regimen in addition to Accu-Cheks before meals and at bedtime with sliding scale coverage 9. Hypothyroidism - Patient is on levothyroxine home dose continued 10. Diabetic polyneuropathy ? Patient is on Neurontin 300 mg p.o. 3 times daily continued 11. Paroxysmal A-fib ? Rate controlled on metoprolol and systemic anticoagulation with apixaban which was held after patient was found to be bleeding around headlines plan is to resume as soon as possible 12. Coronary artery disease ? We will continue patient aspirin as well as beta-blockers 13. DVT prophylaxis ? On Eliquis 14. Severe acute malnutrition related to inadequate oral intake as evidenced by unintentional wt loss of 7.4% and po intake meeting <75% of estimated nutritional needs x <2 months. Will liberalize diet to Regular d/t signs and symptoms of malnutrition with goal of Cardiac 1800 diandra Carbohydrate Controlled diet Will order 4 oz glucerna shake 4x/day w/ medpass for increased nutrition if consumed Continue Say bid to help w/ skin healing if consumed. Time spent in the patient's overall evaluation,decision-making process, review of diagnostic data, adjustment of management, discussion with other providers, nursing nursing and ancillary staff involved in patient's care documentation, 55 minutes Charges/Coding Visit Charges Inpatient E&M: 64330 Subs Hosp L3 Reason for Visit Reason for Visit: Diagnoses Unspecified diastolic (congestive) heart failure (03/31/22) Gangrene, not elsewhere classified (03/31/22) Pneumonia, unspecified organism (03/31/22) Chronic obstructive pulmonary disease with (acute) exacerbation (03/31/22) Acute respiratory failure with hypoxia (03/31/22) Acute respiratory failure with hypercapnia (03/31/22)
[2022-04-04] MEDS: Insulin Lispro 100 UNIT/ML INSULN.PEN SC ×4 (08:35→11:30)
[2022-04-04] MEDS: Metoprolol(XL)Succ 50 MG Tablet PO (08:39)
[2022-04-04] MEDS: Pantoprazole Sodium 40 MG Tablet PO ×2 (08:39→21:51)
[2022-04-04] MEDS: Paroxetine 20 MG Tablet PO (08:40)
[2022-04-04] MEDS: Aspirin E.C. 81 MG Tablet PO (08:40)
[2022-04-04] MEDS: Acetaminophen 325 MG Tablet 650 MG PO ×2 (08:43→18:31)
[2022-04-04 09:05] LABS: Bedside Glucose 153 mg/dL (74-106)
--- NOTE | 2022-04-04 09:13 | PCM.RX.CS ---
Consult Pharmacy has been consulted to manage selected antiobiotic: Vancomycin Type of Consult: Follow-up Prior Doses of Antibiotics Received/Current Regimen: dose is currently being held Labs: Sodium 146 mmol/L (136-145) H 04/04/22 06:33 Potassium 3.8 mmol/L (3.5-5.1) 04/04/22 06:33 Chloride 110 mmol/L (98-107) H 04/04/22 06:33 Carbon Dioxide 30.0 mmol/L (21.0-32.0) 04/04/22 06:33 Anion Gap 6 (5-15) 04/04/22 06:33 BUN 75 mg/dL (7-18) H 04/04/22 06:33 Creatinine 1.87 mg/dL (0.55-1.02) H 04/04/22 06:33 Est GFR (MDRD) Af Amer 35 mL/min (>60) L 04/04/22 06:33 Est GFR (MDRD) Non-Af 29 mL/min (>60) L 04/04/22 06:33 BUN/Creatinine Ratio 40.1 RATIO (10-20) H 04/04/22 06:33 Glucose 180 mg/dL (74-106) H 04/04/22 06:33 Vancomycin Trough 33.4 ug/mL (5.0-15.0) H 04/02/22 17:38 Random Vancomycin 20.0 ug/mL (0.0-15.0) H 04/04/22 06:33 Microbiology: Microbiology 03/31/22 14:13 Blood Culture (Wb) - Central Line Bacteria Detection (PCR) - Final Staphylococcus epidermidis mecA Resistance Marker 03/31/22 14:13 Blood Culture (Wb) - Central Line Blood Culture - Final Staphylococcus epidermidis 03/31/22 15:00 Blood Culture (Wb) - Right Forearm Blood Culture - Preliminary No growth in 48 hours. 03/31/22 22:30 Urine, Clean Catch Legionella Antigen - Final 03/31/22 22:30 Urine, Clean Catch Streptococcus pneumoniae Antigen (M - Final 03/31/22 12:10 Nasal Secretion SARS-CoV-2 & FLU Antigen (Rapid) - Final Weight used for dosin.8 kg Estimated Creatinine Clearance: 32.9ml/min Goal Trough: 15-20 mcg/mL Pharmacy Plan for Drug Dosing: The vanc random level drawn at 06:33 today came back as 20.0. This is back to the goal range so can resume dosing today. Will start at a newly calculated dose of 500mg IV q24h. Will order a trough before the 3rd dose. The patient's SCr of 1.87 today has come down from 2.11 yesterday. The patient's CrCl of 32.9 ml/min was calculated using an adjusted body weight. Pharmacy Service will continue to monitor and adjust dosing as required. Follow-Up Labs: Trough Vancomycin Labs to be done on [date and time ordered]: 04/06/22 09:30
[2022-04-04] MEDS: Vancomycin IV 500 MG/100 ML BAG 100 MG IV (10:08)
--- NOTE | 2022-04-04 11:18 | CASEMGMT ---
Physician said pre-cert can be started. SW sent updates to [place] via [employer] and asked that pre-cert be started. Clare Kaufman MSW GAS METER MECHANIC
[2022-04-04] MEDS: Ferrous Sulfate 325 MG Tablet PO (11:30)
[2022-04-04 12:15] LABS: Bedside Glucose 190 mg/dL (74-106)
[2022-04-04 17:35] LABS: Bedside Glucose 118 mg/dL (74-106)
[2022-04-04] MEDS: Mirtazapine 15 MG Tablet PO (21:51)
[2022-04-04] MEDS: Fluconazole 100 MG Tablet 200 MG PO (21:51)
[2022-04-04] MEDS: Montelukast 10 MG Tablet PO (21:51)
[2022-04-04] MEDS: traZODone 100 MG Tablet 150 MG PO (21:51)
[2022-04-04] MEDS: Insulin Glargine-YFGN 100 UNIT/ML Pen 22 UNIT SC (21:51)
[2022-04-04 22:40] LABS: Bedside Glucose 188 mg/dL (74-106)
[2022-04-05] VITALS (9 sets, daily range): BP systolic 115–148; BP diastolic 59–75; PULSE 74–107; RESP 14–19; TEMP 36.6–36.7; O2SAT 94–97
[2022-04-05] MEDS: Menthol/Lanolin/Calamine/Znox 113 GM Tube 1 APPLIC TOPICAL ×3 (05:35→21:47)
[2022-04-05] MEDS: Nystatin Powder 15gm Bottle 1 APPLIC TOPICAL ×3 (05:36→21:47)
[2022-04-05] MEDS: Gabapentin 300 MG Capsule PO ×3 (05:36→21:46)
[2022-04-05] MEDS: Levothyroxine 100 MCG Tablet PO (05:36)
--- NOTE | 2022-04-05 07:40 | PCM.PN.HOSP ---
Reason for Visit Reason for Visit: Diagnoses Unspecified diastolic (congestive) heart failure (03/31/22) Gangrene, not elsewhere classified (03/31/22) Pneumonia, unspecified organism (03/31/22) Chronic obstructive pulmonary disease with (acute) exacerbation (03/31/22) Acute respiratory failure with hypoxia (03/31/22) Acute respiratory failure with hypercapnia (03/31/22) Subjective Subjective Patient did develop diarrhea. She was apparently on MiraLAX which has since been stopped. Awaiting transfer to long term facility Objective Data Objective Data Vital Signs: Vital Signs Temp Pulse Resp BP Pulse Ox O2 Del Method O2 Flow Rate 98.0 F 74 16 132/59 H 97 Bi-pap 3 04/05/22 03:45 04/05/22 03:45 04/05/22 03:45 04/05/22 03:45 04/05/22 03:45 04/05/22 03:46 04/04/22 21:42 FiO2 30 04/05/22 03:40 Oxygen Flow Rate (L/min) 3 Oxygen Delivery Method Bi-pap Weight: 91 kg Body Mass Index (BMI) 31.8 Intake & Output: Intake and Output for Last 24 Hours 04/03/22 04/04/22 04/05/22 23:59 23:59 23:59 Intake Total 990 / 990 640 / 640 50 / 50 Output Total 800 / 1000 300 / 300 Balance 190 / -10 340 / 340 50 / 50 Medical Nutrition Assessment Dietitian: Malnutrition Criteria Met Start: 04/01/22 11:51 Freq: Status: Active Protocol: Document 04/04/22 11:06 RMA (Rec: 04/04/22 11:06 RMA [id number]) Nutrition Malnutrition Evidence of Malnutrition Exists Yes Malnutrition (severe): Chronic Evidenced By Suboptimal Energy Intake ( Severe),Weight Loss (Severe) Intake Problem Increased Nutrient Needs (specify) Etiology for protein related to skin status/increased demands for wound healing Signs/Symptoms as evidenced by PI to L buttock, ayad heals, L toes w/ diabetic foot ulcers and non healing L great toe amputation ; receiving Say bid to help w/ wound healing Status Active Problem Clinical Problem Acute Disease or Injury Related Malnutrition Etiology Severe protein-calorie malnutrition in the context of chronic disease/debility related to inadequate oral intake and increased nutrient needs Signs/Symptoms as evidenced by unintentional wt loss of 7.4% and po intake meeting <75% of estimated nutritional needs x last 2 months Status Active Problem Recommendation Dietitian Recommendations/Changes Will continue Regular diet for now due to signs and symptoms of malnutrition; monitor need to change diet to Carbohydrate- Controlled if blood glucose levels increase. Will d/c 4 oz glucerna shake 4x/day w/ medpass--pt refusing . Will continue Say bid to help w/ skin healing. Will add 1 oz extra meat/ protein Q meal given improved intake at meals. Lab / Micro Data Result Diagrams: 04/04/22 06:33 04/04/22 06:33 Labs: Laboratory Results - last 24 hr 04/04/22 06:33: Random Vancomycin 20.0 H 04/04/22 06:33: Differential Comment SCANNED, Anisocytosis 2+ 04/04/22 06:33: Sodium 146 H, Potassium 3.8, Chloride 110 H, Carbon Dioxide 30.0, Anion Gap 6, BUN 75 H, Creatinine 1.87 H, Estim Creat Clear Calc 26.63, Est GFR (MDRD) Af Amer 35 L, Est GFR (MDRD) Non-Af 29 L, BUN/Creatinine Ratio 40.1 H, Glucose 180 H, Calcium 8.8, Phosphorus 2.2 L, Magnesium 1.9 04/04/22 08:27: POC Glucose 153 H 04/04/22 11:26: POC Glucose 190 H 04/04/22 16:21: POC Glucose 118 H 04/04/22 21:48: POC Glucose 188 H Micro: Microbiology 03/31/22 14:13 Blood Culture (Wb) - Central Line Bacteria Detection (PCR) - Final Staphylococcus epidermidis mecA Resistance Marker 03/31/22 14:13 Blood Culture (Wb) - Central Line Blood Culture - Final Staphylococcus epidermidis 03/31/22 15:00 Blood Culture (Wb) - Right Forearm Blood Culture - Preliminary No growth in 48 hours. 03/31/22 22:30 Urine, Clean Catch Legionella Antigen - Final 03/31/22 22:30 Urine, Clean Catch Streptococcus pneumoniae Antigen (M - Final 03/31/22 12:10 Nasal Secretion SARS-CoV-2 & FLU Antigen (Rapid) - Final Physical Exam Narrative GENERAL: cooperative but on BiPAP HEENT: Atraumatic; normocephalic EYES; Anicteric, Normal Conjunctiva NECK; supple, normal thyroid, RESPIRATORY: Diminished to auscultation CARDIOVASCULAR: Regular S1 S2, GI: soft, normoactive bowel sounds, : No Renal angle tenderness; EXTREMITIES: No edema, no clubbing, MUSCULOSKELETAL: no muscle wasting NEURO: Awake; no lateralizing signs. SKIN: No Rash PSYCH; Flat affect Assessment & Plan Assessment/Plan (1) Pneumonia: PLAN: Plan Patient is a 67-year-old lady with multiple comorbidities admitted with progressive shortness of breath and assessment of sepsis as well as acute on chronic hypoxic respiratory failure secondary to pneumonia made 1. Sepsis ? Secondary to pneumonia ? Patient admitted to a monitored bed management broad-spectrum antibiotic therapy with vancomycin and Zosyn. Blood cultures came back positive 1 out of 2 bottles for gram-positive cocci in clusters. 10 out to be staph epi. 2. Acute on chronic hypoxic respiratory failure ? Secondary to pneumonia management of patient pneumonia as described above. Patient managed on noninvasive ventilation with BiPAP ? 04/04/2022 patient has been weaned off noninvasive ventilation currently on nasal cannula 3. Acute kidney injury ? Superimposed on chronic kidney disease stage III ? Kidney function on admission was 2.28 did improve with rehydration 4. Chronic congestive heart failure with preserved ejection fraction ? EF of 55% patient is on diuretics with monitoring of strict input and output Daily weight as well as creatinine 5. Anemia - Secondary to chronic disorder monitoring H&H and transfuse if patient becomes symptomatic or hemoglobin falls below 7 6. 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 Patient underwent left great toe amputation on 12/16/2021. Patient is followed by vascular surgeon Dr. Govea plan is for patient to undergo angiogram with possible intervention if needed 7. Class I obesity BMI of 32.5 ? Weight loss advised 8. Diabetes mellitus type 2 I did continue the patient home insulin regimen in addition to Accu-Cheks before meals and at bedtime with sliding scale coverage 9. Hypothyroidism - Patient is on levothyroxine home dose continued 10. Diabetic polyneuropathy ? Patient is on Neurontin 300 mg p.o. 3 times daily continued 11. Paroxysmal A-fib ? Rate controlled on metoprolol and systemic anticoagulation with apixaban which was held after patient was found to be bleeding around headlines plan is to resume as soon as possible 12. Coronary artery disease ? We will continue patient aspirin as well as beta-blockers 13. DVT prophylaxis ? On Eliquis 14. Severe acute malnutrition related to inadequate oral intake as evidenced by unintentional wt loss of 7.4% and po intake meeting <75% of estimated nutritional needs x <2 months. Will liberalize diet to Regular d/t signs and symptoms of malnutrition with goal of Cardiac 1800 diandra Carbohydrate Controlled diet Will order 4 oz glucerna shake 4x/day w/ medpass for increased nutrition if consumed Continue Say bid to help w/ skin healing if consumed. Time spent in the patient's overall evaluation,decision-making process, review of diagnostic data, adjustment of management, discussion with other providers, nursing nursing and ancillary staff involved in patient's care documentation, 35 minutes Charges/Coding Visit Charges Inpatient E&M: 45293 Subs Hosp L2
[2022-04-05] MEDS: Juven (unflavored) Packet 1 PACKET PO ×2 (07:54→17:24)
[2022-04-05] MEDS: Insulin Lispro 100 UNIT/ML INSULN.PEN SC ×4 (07:54→17:24)
[2022-04-05 08:15] LABS: Bedside Glucose 128 mg/dL (74-106)
[2022-04-05] MEDS: Paroxetine 20 MG Tablet PO (09:22)
[2022-04-05] MEDS: Metoprolol(XL)Succ 50 MG Tablet PO (09:22)
[2022-04-05] MEDS: Acetaminophen 325 MG Tablet 650 MG PO ×2 (09:22→15:26)
[2022-04-05] MEDS: 0.9% Saline Lock 10 ML Syringe IV (09:22)
[2022-04-05] MEDS: Aspirin E.C. 81 MG Tablet PO (09:22)
[2022-04-05] MEDS: Vancomycin IV 500 MG/100 ML BAG 100 MG IV (09:22)
[2022-04-05] MEDS: Pantoprazole Sodium 40 MG Tablet PO ×2 (09:22→21:46)
[2022-04-05] MEDS: Ferrous Sulfate 325 MG Tablet PO (11:33)
--- NOTE | 2022-04-05 11:34 | CASEMGMT ---
GREG sent a message to [facility] via [email or web address] inquiring if per-cert was started as GREG requested yesterday. Clare Kaufman DATA DESIGNER WELLNESS COACH
[2022-04-05 11:50] LABS: Bedside Glucose 210 mg/dL (74-106)
--- NOTE | 2022-04-05 15:14 | CASEMGMT ---
GREG called [facility] as GREG has not heard back about whether or not pre-cert has been started. GREG spoke with Donna and she had not realized GREG sent over the information. Donna will start the pre-cert. Plan: d/c to [facility] pending pre-cert. Clare Kaufman VASCULAR MANAGER BROWN
[2022-04-05 17:01] LABS: Bedside Glucose 138 mg/dL (74-106)
[2022-04-05] MEDS: Montelukast 10 MG Tablet PO (21:46)
[2022-04-05] MEDS: Fluconazole 100 MG Tablet 200 MG PO (21:46)
[2022-04-05] MEDS: traZODone 100 MG Tablet 150 MG PO (21:46)
[2022-04-05] MEDS: Mirtazapine 15 MG Tablet PO (21:46)
[2022-04-05] MEDS: Insulin Glargine-YFGN 100 UNIT/ML Pen 22 UNIT SC (21:47)
[2022-04-05 22:30] LABS: Bedside Glucose 163 mg/dL (74-106)
[2022-04-06] VITALS (13 sets, daily range): BP systolic 122–148; BP diastolic 62–76; PULSE 87–103; RESP 14–21; TEMP 36.4–36.9; O2SAT 93–100
[2022-04-06] MEDS: Menthol/Lanolin/Calamine/Znox 113 GM Tube 1 APPLIC TOPICAL ×3 (05:19→22:48)
[2022-04-06] MEDS: Gabapentin 300 MG Capsule PO ×3 (05:19→22:58)
[2022-04-06] MEDS: Levothyroxine 100 MCG Tablet PO (05:19)
[2022-04-06] MEDS: Nystatin Powder 15gm Bottle 1 APPLIC TOPICAL ×3 (05:20→22:49)
[2022-04-06] MEDS: Juven (unflavored) Packet 1 PACKET PO ×2 (08:38→17:18)
[2022-04-06] MEDS: Metoprolol(XL)Succ 50 MG Tablet PO (08:39)
[2022-04-06] MEDS: Pantoprazole Sodium 40 MG Tablet PO ×2 (08:39→22:52)
[2022-04-06] MEDS: Paroxetine 20 MG Tablet PO (08:40)
[2022-04-06] MEDS: Aspirin E.C. 81 MG Tablet PO (08:41)
[2022-04-06] MEDS: Insulin Lispro 100 UNIT/ML INSULN.PEN SC ×6 (08:47→17:17)
[2022-04-06] MEDS: Acetaminophen 325 MG Tablet 650 MG PO ×2 (08:48→17:47)
[2022-04-06 09:15] LABS: Bedside Glucose 163 mg/dL (74-106)
[2022-04-06] MEDS: Vancomycin IV 500 MG/100 ML BAG 100 MG IV (09:48)
[2022-04-06 10:04] LABS: Absolute Neutrophil Count 9.8 X10^3/uL (2.0-7.7); Basophil# 0.04 X10^3/uL; Basophil% 0.3 % (0-1); Eosinophil# 0.45 X10^3/uL; Eosinophils% 3.8 % (0-5); Hematocrit 26.8 % (37-47); Hemoglobin 7.6 g/dL (12.0-15.0); Lymphocyte % 9.3 % (19-41); Mean Corp Hgb Conc 28.4 g/dL (32-36); Mean Corpuscular Hgb 27.5 pg (27.0-32.0); Mean Corpuscular Volume 97.1 fL (81-99); Mean Platelet Vol. 10.6 fl (6.2-12.0); Monocyte# 0.42 X10^3/uL; Monocyte% 3.5 % (0-10); NRBC Flagged by Analyzer 0 % (0-5); Neutrophil # 9.77 X10^3/uL (2.7-7.7); Neutrophil % 82.3 % (47-70); POSITIVE MORPHOLOGY YES; Platelet Count 129 K/mm3 (150-450); RBC Distribution Width CV 18.8 % (11.6-14.6); RBC Distribution Width SD 66.2 fl (35.1-43.9); Red Blood Count 2.76 M/mm3 (4.2-5.4); White Blood Count 11.9 K/mm3 (4.4-11.0)
[2022-04-06 10:07] LABS: Differential Indicated SCAN CRITERIA MET
--- NOTE | 2022-04-06 10:22 | PN.HOSP_ITS ---
Reason for Visit Reason for Visit: Diagnoses Unspecified diastolic (congestive) heart failure (03/31/22) Gangrene, not elsewhere classified (03/31/22) Pneumonia, unspecified organism (03/31/22) Chronic obstructive pulmonary disease with (acute) exacerbation (03/31/22) Acute respiratory failure with hypoxia (03/31/22) Acute respiratory failure with hypercapnia (03/31/22) Subjective Subjective Patient seen had a relatively uneventful night. Hemoglobin remains low at 7.6. Awaiting transfer to detention facility pending insurance approval Objective Data Objective Data Vital Signs: Vital Signs Temp Pulse Resp BP Pulse Ox O2 Del Method O2 Flow Rate 97.9 F 97 18 148/76 H 97 Nasal Cannula 3 04/06/22 08:35 04/06/22 08:39 04/06/22 08:35 04/06/22 08:39 04/06/22 08:35 04/06/22 08:35 04/06/22 08:35 FiO2 30 04/06/22 08:06 Oxygen Flow Rate (L/min) 3 Oxygen Delivery Method Nasal Cannula Weight: 90.1 kg Body Mass Index (BMI) 31.8 Intake & Output: Intake and Output for Last 24 Hours 04/04/22 04/05/22 04/06/22 23:59 23:59 23:59 Intake Total 640 / 640 1090 / 1090 100 / 100 Output Total 300 / 300 Balance 340 / 340 1090 / 1090 100 / 100 Medical Nutrition Assessment Dietitian: Malnutrition Criteria Met Start: 04/01/22 11:51 Freq: Status: Active Protocol: Document 04/04/22 11:06 RMA (Rec: 04/04/22 11:06 RMA [id number]) Nutrition Malnutrition Evidence of Malnutrition Exists Yes Malnutrition (severe): Chronic Evidenced By Suboptimal Energy Intake ( Severe),Weight Loss (Severe) Intake Problem Increased Nutrient Needs (specify) Etiology for protein related to skin status/increased demands for wound healing Signs/Symptoms as evidenced by PI to L buttock, ayad heals, L toes w/ diabetic foot ulcers and non healing L great toe amputation ; receiving Say bid to help w/ wound healing Status Active Problem Clinical Problem Acute Disease or Injury Related Malnutrition Etiology Severe protein-calorie malnutrition in the context of chronic disease/debility related to inadequate oral intake and increased nutrient needs Signs/Symptoms as evidenced by unintentional wt loss of 7.4% and po intake meeting <75% of estimated nutritional needs x last 2 months Status Active Problem Recommendation Dietitian Recommendations/Changes Will continue Regular diet for now due to signs and symptoms of malnutrition; monitor need to change diet to Carbohydrate- Controlled if blood glucose levels increase. Will d/c 4 oz glucerna shake 4x/day w/ medpass--pt refusing . Will continue Say bid to help w/ skin healing. Will add 1 oz extra meat/ protein Q meal given improved intake at meals. Lab / Micro Data Result Diagrams: 04/06/22 09:35 04/04/22 06:33 Labs: Laboratory Results - last 24 hr 04/05/22 11:24: POC Glucose 210 H 04/05/22 16:39: POC Glucose 138 H 04/05/22 21:38: POC Glucose 163 H 04/06/22 08:31: POC Glucose 163 H 04/06/22 09:35: WBC 11.9 H, RBC 2.76 L, Hgb 7.6 L, Hct 26.8 L, MCV 97.1, MCH 27.5, MCHC 28.4 L, RDW Std Deviation 66.2 H, RDW Coeff of Magen 18.8 H, Plt Count 129 L, MPV 10.6, Immature Gran % (Auto) 0.800, Neut % (Auto) 82.3 H, Lymph % (Auto) 9.3 L, [place] % (Auto) 3.5, Eos % (Auto) 3.8, Baso % (Auto) 0.3, Absolute Neuts (auto) 9.8 H, Absolute Lymphs (auto) 1.10, Nucleated RBC % 0 Micro: Microbiology 03/31/22 15:00 Blood Culture (Wb) - Right Forearm Blood Culture - Final No growth in 5 days. 04/05/22 05:33 Stool C. difficile DNA Amplification - Final 03/31/22 14:13 Blood Culture (Wb) - Central Line Bacteria Detection (PCR) - Final Staphylococcus epidermidis mecA Resistance Marker 03/31/22 14:13 Blood Culture (Wb) - Central Line Blood Culture - Final Staphylococcus epidermidis 03/31/22 22:30 Urine, Clean Catch Legionella Antigen - Final 03/31/22 22:30 Urine, Clean Catch Streptococcus pneumoniae Antigen (M - Final 02/03/23 12:10 Nasal Secretion SARS-CoV-2 & FLU Antigen (Rapid) - Final Physical Exam Narrative GENERAL: cooperative but on BiPAP HEENT: Atraumatic; normocephalic EYES; Anicteric, Normal Conjunctiva NECK; supple, normal thyroid, RESPIRATORY: Diminished to auscultation CARDIOVASCULAR: Regular S1 S2, GI: soft, normoactive bowel sounds, : No Renal angle tenderness; EXTREMITIES: No edema, no clubbing, MUSCULOSKELETAL: no muscle wasting NEURO: Awake; no lateralizing signs. SKIN: No Rash PSYCH; Flat affect Assessment & Plan Assessment/Plan (1) Pneumonia: PLAN: Plan Patient is a 67-year-old lady with multiple comorbidities admitted with progressive shortness of breath and assessment of sepsis as well as acute on chronic hypoxic respiratory failure secondary to pneumonia made 1. Sepsis ? Secondary to pneumonia ? Patient admitted to a monitored bed management broad-spectrum antibiotic therapy with vancomycin and Zosyn. Blood cultures came back positive 1 out of 2 bottles for gram-positive cocci in clusters. 10 out to be staph epi. 2. Acute on chronic hypoxic respiratory failure ? Secondary to pneumonia management of patient pneumonia as described above. Patient managed on noninvasive ventilation with BiPAP ? 04/04/2022 patient has been weaned off noninvasive ventilation currently on nasal cannula 3. Acute kidney injury ? Superimposed on chronic kidney disease stage III ? Kidney function on admission was 2.28 did improve with rehydration 4. Chronic congestive heart failure with preserved ejection fraction ? EF of 55% patient is on diuretics with monitoring of strict input and output Daily weight as well as creatinine 5. Anemia - Secondary to chronic disorder monitoring H&H and transfuse if patient becomes symptomatic or hemoglobin falls below 7 6. 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 Patient underwent left great toe amputation on 12/16/2021. Patient is followed by vascular surgeon Dr. Govea plan is for patient to undergo angiogram with possible intervention if needed 7. Class I obesity BMI of 32.5 ? Weight loss advised 8. Diabetes mellitus type 2 I did continue the patient home insulin regimen in addition to Accu-Cheks before meals and at bedtime with sliding scale coverage 9. Hypothyroidism - Patient is on levothyroxine home dose continued 10. Diabetic polyneuropathy ? Patient is on Neurontin 300 mg p.o. 3 times daily continued 11. Paroxysmal A-fib ? Rate controlled on metoprolol and systemic anticoagulation with apixaban which was held after patient was found to be bleeding around headlines plan is to resume as soon as possible 12. Coronary artery disease ? We will continue patient aspirin as well as beta-blockers 13. DVT prophylaxis ? On Eliquis 14. Severe acute malnutrition related to inadequate oral intake as evidenced by unintentional wt loss of 7.4% and po intake meeting <75% of estimated nutritional needs x <2 months. Will liberalize diet to Regular d/t signs and symptoms of malnutrition with goal of Cardiac 1800 diandra Carbohydrate Controlled diet Will order 4 oz glucerna shake 4x/day w/ medpass for increased nutrition if consumed Continue Say bid to help w/ skin healing if consumed. Time spent in the patient's overall evaluation,decision-making process, review of diagnostic data, adjustment of management, discussion with other providers, nursing nursing and ancillary staff involved in patient's care documentation, 35 minutes Charges/Coding Visit Charges Inpatient E&M: 64805 Subs Hosp L2
[2022-04-06] MEDS: Ferrous Sulfate 325 MG Tablet PO (11:14)
[2022-04-06 11:17] LABS: Vancomycin, Trough Level 16.1 ug/mL (5.0-15.0)
[2022-04-06 11:36] LABS: Bedside Glucose 246 mg/dL (74-106)
--- NOTE | 2022-04-06 11:37 | PCM.RX.CS ---
Consult Pharmacy has been consulted to manage selected antiobiotic: Vancomycin Type of Consult: Follow-up Prior Doses of Antibiotics Received/Current Regimen: Currently on 500mg iv q24h. Labs: Vancomycin Trough 16.1 ug/mL (5.0-15.0) H 04/06/22 09:35 Random Vancomycin 20.0 ug/mL (0.0-15.0) H 04/04/22 06:33 Microbiology: Microbiology 03/31/22 15:00 Blood Culture (Wb) - Right Forearm Blood Culture - Final No growth in 5 days. 04/05/22 05:33 Stool C. difficile DNA Amplification - Final 03/31/22 14:13 Blood Culture (Wb) - Central Line Bacteria Detection (PCR) - Final Staphylococcus epidermidis mecA Resistance Marker 03/31/22 14:13 Blood Culture (Wb) - Central Line Blood Culture - Final Staphylococcus epidermidis 03/31/22 22:30 Urine, Clean Catch Legionella Antigen - Final 03/31/22 22:30 Urine, Clean Catch Streptococcus pneumoniae Antigen (M - Final 03/31/22 12:10 Nasal Secretion SARS-CoV-2 & FLU Antigen (Rapid) - Final Weight used for dosin kg Estimated Creatinine Clearance: 33 ml/min Goal Trough: 15-20 mcg/mL Pharmacy Plan for Drug Dosing: Trough today was 16.1 and within goal range. Will continue same dose. Trough level ordered for before another 3rd dose per policy. Pharmacy Service will continue to monitor and adjust dosing as required. Follow-Up Labs: Trough Vancomycin - 2.11.23 @0930 before 1000 dose
[2022-04-06 11:38] LABS: Anisocytosis 1+; Hypochromasia 1+
[2022-04-06 11:46] LABS: Anion Gap 9 (5-15); BUN 52 mg/dL (7-18); BUN/Creat Ratio 37.4 RATIO (10-20); Calcium,Total 8.7 mg/dL (8.5-10.1); Chloride 106 mmol/L (98-107); Creatinine, Serum 1.39 mg/dL (0.55-1.02); EST Glomerular Filtration Rate 40 mL/min (>60); Est Glom Filt Rate - Afr Amer 49 mL/min (>60); Estimated Creatinine Clearance 35.82 ml/min; Glucose 209 mg/dL (74-106); Sodium Level 144 mmol/L (136-145)
[2022-04-06 18:10] LABS: Bedside Glucose 164 mg/dL (74-106)
[2022-04-06] MEDS: Fluconazole 100 MG Tablet 200 MG PO (22:51)
[2022-04-06] MEDS: Mirtazapine 15 MG Tablet PO (22:52)
[2022-04-06] MEDS: Montelukast 10 MG Tablet PO (22:52)
[2022-04-06] MEDS: traZODone 100 MG Tablet 150 MG PO (22:52)
[2022-04-06] MEDS: Insulin Glargine-YFGN 100 UNIT/ML Pen 22 UNIT SC (23:00)
[2022-04-07 00:06] LABS: Bedside Glucose 181 mg/dL (74-106)
[2022-04-07 02:52] VITALS: BP 112/80; PULSE 88; RESP 16; TEMP 36.7; O2SAT 100
[2022-04-07] MEDS: Menthol/Lanolin/Calamine/Znox 113 GM Tube 1 APPLIC TOPICAL ×2 (05:25→13:09)
[2022-04-07] MEDS: Nystatin Powder 15gm Bottle 1 APPLIC TOPICAL ×2 (05:25→13:08)
[2022-04-07] MEDS: Levothyroxine 100 MCG Tablet PO (05:31)
[2022-04-07] MEDS: Acetaminophen 325 MG Tablet 650 MG PO (05:38)
[2022-04-07] MEDS: Gabapentin 300 MG Capsule PO ×2 (05:38→13:08)
[2022-04-07 06:59] VITALS: O2SAT 100
--- NOTE | 2022-04-07 07:48 | CASEMGMT ---
GREG sent updated PT/OT to [place] via [facility] per their request. Clare Kaufman MARKETING INTELLIGENCE ANALYST [employer]
--- NOTE | 2022-04-07 07:53 | PCM.PN.HOSP ---
Reason for Visit Reason for Visit: Diagnoses Unspecified diastolic (congestive) heart failure (03/31/22) Gangrene, not elsewhere classified (03/31/22) Pneumonia, unspecified organism (03/31/22) Chronic obstructive pulmonary disease with (acute) exacerbation (03/31/22) Acute respiratory failure with hypoxia (03/31/22) Acute respiratory failure with hypercapnia (03/31/22) Subjective Subjective Patient seen breathing remains fairly stable. Awaiting pre-CERT prior to transfer to a senior care facility Objective Data Objective Data Vital Signs: Vital Signs Temp Pulse Resp BP Pulse Ox O2 Del Method O2 Flow Rate 98.1 F 88 16 112/80 100 Nasal Cannula 3 04/07/22 02:52 04/07/22 02:52 04/07/22 02:52 04/07/22 02:52 04/07/22 06:59 04/07/22 06:59 04/07/22 06:59 FiO2 30 04/06/22 08:06 Oxygen Flow Rate (L/min) 3 Oxygen Delivery Method Nasal Cannula Weight: 90.1 kg Body Mass Index (BMI) 31.8 Intake & Output: Intake and Output for Last 24 Hours 04/05/22 04/06/22 04/07/22 23:59 23:59 23:59 Intake Total 1090 / 1090 1435.75 / 1435.75 50 / 50 Output Total 600 / 750 150 / 150 Balance 1090 / 1090 835.75 / 685.75 -100 / -100 Medical Nutrition Assessment Dietitian: Malnutrition Criteria Met Start: 04/01/22 11:51 Freq: Status: Active Protocol: Document 04/04/22 11:06 RMA (Rec: 04/04/22 11:06 RMA [id number]) Nutrition Malnutrition Evidence of Malnutrition Exists Yes Malnutrition (severe): Chronic Evidenced By Suboptimal Energy Intake ( Severe),Weight Loss (Severe) Intake Problem Increased Nutrient Needs (specify) Etiology for protein related to skin status/increased demands for wound healing Signs/Symptoms as evidenced by PI to L buttock, ayad heals, L toes w/ diabetic foot ulcers and non healing L great toe amputation ; receiving Say bid to help w/ wound healing Status Active Problem Clinical Problem Acute Disease or Injury Related Malnutrition Etiology Severe protein-calorie malnutrition in the context of chronic disease/debility related to inadequate oral intake and increased nutrient needs Signs/Symptoms as evidenced by unintentional wt loss of 7.4% and po intake meeting <75% of estimated nutritional needs x last 2 months Status Active Problem Recommendation Dietitian Recommendations/Changes Will continue Regular diet for now due to signs and symptoms of malnutrition; monitor need to change diet to Carbohydrate- Controlled if blood glucose levels increase. Will d/c 4 oz glucerna shake 4x/day w/ medpass--pt refusing . Will continue Say bid to help w/ skin healing. Will add 1 oz extra meat/ protein Q meal given improved intake at meals. Lab / Micro Data Result Diagrams: 04/06/22 09:35 04/06/22 09:35 Labs: Laboratory Results - last 24 hr 04/06/22 08:31: POC Glucose 163 H 04/06/22 09:35: WBC 11.9 H, RBC 2.76 L, Hgb 7.6 L, Hct 26.8 L, MCV 97.1, MCH 27.5, MCHC 28.4 L, RDW Std Deviation 66.2 H, RDW Coeff of [employer] 18.8 H, Plt Count 129 L, MPV 10.6, Immature Gran % (Auto) 0.800, Neut % (Auto) 82.3 H, Lymph % (Auto) 9.3 L, [place] % (Auto) 3.5, Eos % (Auto) 3.8, Baso % (Auto) 0.3, Absolute Neuts (auto) 9.8 H, Absolute Lymphs (auto) 1.10, Nucleated RBC % 0, Hypochromasia 1+, Anisocytosis 1+ 04/06/22 09:35: Sodium 144, Potassium 4.0, Chloride 106, Carbon Dioxide 29.0, Anion Gap 9, BUN 52 H, Creatinine 1.39 H, Estim Creat Clear Calc 35.82, Est GFR (MDRD) Af Amer 49 L, Est GFR (MDRD) Non-Af 40 L, BUN/Creatinine Ratio 37.4 H, Glucose 209 H, Calcium 8.7 04/06/22 09:35: Vancomycin Trough 16.1 H 04/06/22 11:12: POC Glucose 246 H 04/06/22 17:16: POC Glucose 164 H 04/06/22 22:23: POC Glucose 181 H Micro: Microbiology 03/31/22 15:00 Blood Culture (Wb) - Right Forearm Blood Culture - Final No growth in 5 days. 04/05/22 05:33 Stool C. difficile DNA Amplification - Final 03/31/22 14:13 Blood Culture (Wb) - Central Line Bacteria Detection (PCR) - Final Staphylococcus epidermidis mecA Resistance Marker 03/31/22 14:13 Blood Culture (Wb) - Central Line Blood Culture - Final Staphylococcus epidermidis 03/31/22 22:30 Urine, Clean Catch Legionella Antigen - Final 03/31/22 22:30 Urine, Clean Catch Streptococcus pneumoniae Antigen (M - Final 03/31/22 12:10 Nasal Secretion SARS-CoV-2 & FLU Antigen (Rapid) - Final Physical Exam Narrative GENERAL: cooperative but on BiPAP HEENT: Atraumatic; normocephalic EYES; Anicteric, Normal Conjunctiva NECK; supple, normal thyroid, RESPIRATORY: Diminished to auscultation CARDIOVASCULAR: Regular S1 S2, GI: soft, normoactive bowel sounds, : No Renal angle tenderness; EXTREMITIES: No edema, no clubbing, MUSCULOSKELETAL: no muscle wasting NEURO: Awake; no lateralizing signs. SKIN: No Rash PSYCH; Flat affect Assessment & Plan Assessment/Plan (1) Pneumonia: PLAN: Plan Patient is a 67-year-old lady with multiple comorbidities admitted with progressive shortness of breath and assessment of sepsis as well as acute on chronic hypoxic respiratory failure secondary to pneumonia made 1. Sepsis ? Secondary to pneumonia ? Patient admitted to a monitored bed management broad-spectrum antibiotic therapy with vancomycin and Zosyn. Blood cultures came back positive 1 out of 2 bottles for gram-positive cocci in clusters. 10 out to be staph epi. 2. Acute on chronic hypoxic respiratory failure ? Secondary to pneumonia management of patient pneumonia as described above. Patient managed on noninvasive ventilation with BiPAP ? 04/04/2022 patient has been weaned off noninvasive ventilation currently on nasal cannula 3. Acute kidney injury ? Superimposed on chronic kidney disease stage III ? Kidney function on admission was 2.28 did improve with rehydration 4. Chronic congestive heart failure with preserved ejection fraction ? EF of 55% patient is on diuretics with monitoring of strict input and output Daily weight as well as creatinine 5. Anemia - Secondary to chronic disorder monitoring H&H and transfuse if patient becomes symptomatic or hemoglobin falls below 7 6. 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 Patient underwent left great toe amputation on 12/16/2021. Patient is followed by vascular surgeon Dr. Govea plan is for patient to undergo angiogram with possible intervention if needed 7. Class I obesity BMI of 32.5 ? Weight loss advised 8. Diabetes mellitus type 2 I did continue the patient home insulin regimen in addition to Accu-Cheks before meals and at bedtime with sliding scale coverage 9. Hypothyroidism - Patient is on levothyroxine home dose continued 10. Diabetic polyneuropathy ? Patient is on Neurontin 300 mg p.o. 3 times daily continued 11. Paroxysmal A-fib ? Rate controlled on metoprolol and systemic anticoagulation with apixaban which was held after patient was found to be bleeding around headlines plan is to resume as soon as possible 12. Coronary artery disease ? We will continue patient aspirin as well as beta-blockers 13. DVT prophylaxis ? On Eliquis 14. Severe acute malnutrition related to inadequate oral intake as evidenced by unintentional wt loss of 7.4% and po intake meeting <75% of estimated nutritional needs x <2 months. Will liberalize diet to Regular d/t signs and symptoms of malnutrition with goal of Cardiac 1800 diandra Carbohydrate Controlled diet Will order 4 oz glucerna shake 4x/day w/ medpass for increased nutrition if consumed Continue Say bid to help w/ skin healing if consumed. Time spent in the patient's overall evaluation,decision-making process, review of diagnostic data, adjustment of management, discussion with other providers, nursing nursing and ancillary staff involved in patient's care documentation, 35 minutes Charges/Coding Visit Charges Inpatient E&M: 84016 Subs Hosp L2
--- NOTE | 2022-04-07 09:05 | CASEMGMT ---
GREG received a voice mail from Ping with [employer]. They are requesting a peer to peer for more information. However, if a peer to peer is not done their physician will make his/her decision based on the information they have. 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 GREG let [place] know that [facility] physician is not going to do a peer to peer as it is felt patient is not skillable. Hopefully, there will be a decision today so patient can return to [place] under intermediate level of care. Clare Kaufman ADVANCED QUALITY ENGINEER [employer]
[2022-04-07 09:22] VITALS: BP 129/76; PULSE 103; RESP 16; TEMP 36.4; O2SAT 98
[2022-04-07 09:25] VITALS: BP 129/76; PULSE 103
[2022-04-07] MEDS: Metoprolol(XL)Succ 50 MG Tablet PO (09:25)
[2022-04-07] MEDS: Juven (unflavored) Packet 1 PACKET PO (09:25)
[2022-04-07] MEDS: Aspirin E.C. 81 MG Tablet PO (09:25)
[2022-04-07] MEDS: Paroxetine 20 MG Tablet PO (09:26)
[2022-04-07] MEDS: Pantoprazole Sodium 40 MG Tablet PO (09:28)
[2022-04-07] MEDS: Vancomycin IV 500 MG/100 ML BAG 100 MG IV (09:30)
[2022-04-07] MEDS: Insulin Lispro 100 UNIT/ML INSULN.PEN SC ×4 (12:06→15:39)
[2022-04-07] MEDS: Ferrous Sulfate 325 MG Tablet PO (12:07)
[2022-04-07 12:31] LABS: Bedside Glucose 177 mg/dL (74-106)
--- NOTE | 2022-04-07 15:25 | CASEMGMT ---
GREG called [facility] and spoke with Rachelle. GREG asked if patient can return today. Rachelle said she would call their production administrator and call GREG back. Rachelle called GREG back and said their production administrator said patient can return today. GREG notified physician. Clare DASILVA
--- NOTE | 2022-04-07 15:29 | PCM.TXEXTCAR ---
Diet Diet Order/Speech Therapy: 04/01/22 11:51 Diet: Regular - General Food consistency:: Regular Liquid Consistency:: Regular/Thin Is pt able to select menu?: Yes Diet Comments: extra 1 oz meat/protein Q meal Wound(s) left buttocks: Wound Type: Pressure Injury right heel: Wound Type: Pressure Injury Dressing Change: betadine with dry dressing left heel: Wound Type: Pressure Injury Dressing Change: betadine with dry dressing left toes/top of foot: Wound Type: nonhealing wound (dry black eschar) Dressing Change: betadine gauze left dorsal foot: Wound Type: Abrasion Dressing Change: dry dressing right daigle: Wound Type: Abrasion Dressing Change: dry dressing Therapies Physical Therapy: Eval and Treat Occupational Therapy: Eval and Treat Problem/Diagnosis (1) Pneumonia: Status: Acute Code(s): J18.9 - Pneumonia, unspecified organism Plan Patient is a 67-year-old lady with multiple comorbidities admitted with progressive shortness of breath and assessment of sepsis as well as acute on chronic hypoxic respiratory failure secondary to pneumonia made 1. Sepsis ? Secondary to pneumonia ? Patient admitted to a monitored bed management broad-spectrum antibiotic therapy with vancomycin and Zosyn. Blood cultures came back positive 1 out of 2 bottles for gram-positive cocci in clusters. 10 out to be staph epi. 2. Acute on chronic hypoxic respiratory failure ? Secondary to pneumonia management of patient pneumonia as described above. Patient managed on noninvasive ventilation with BiPAP ? 04/04/2022 patient has been weaned off noninvasive ventilation currently on nasal cannula 3. Acute kidney injury ? Superimposed on chronic kidney disease stage III ? Kidney function on admission was 2.28 did improve with rehydration 4. Chronic congestive heart failure with preserved ejection fraction ? EF of 55% patient is on diuretics with monitoring of strict input and output Daily weight as well as creatinine 5. Anemia - Secondary to chronic disorder monitoring H&H and transfuse if patient becomes symptomatic or hemoglobin falls below 7 6. 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 Patient underwent left great toe amputation on 12/16/2021. Patient is followed by vascular surgeon Dr. Govea plan is for patient to undergo angiogram with possible intervention if needed 7. Class I obesity BMI of 32.5 ? Weight loss advised 8. Diabetes mellitus type 2 I did continue the patient home insulin regimen in addition to Accu-Cheks before meals and at bedtime with sliding scale coverage 9. Hypothyroidism - Patient is on levothyroxine home dose continued 10. Diabetic polyneuropathy ? Patient is on Neurontin 300 mg p.o. 3 times daily continued 11. Paroxysmal A-fib ? Rate controlled on metoprolol and systemic anticoagulation with apixaban which was held after patient was found to be bleeding around headlines plan is to resume as soon as possible 12. Coronary artery disease ? We will continue patient aspirin as well as beta-blockers 13. DVT prophylaxis ? On Eliquis 14. Severe acute malnutrition related to inadequate oral intake as evidenced by unintentional wt loss of 7.4% and po intake meeting <75% of estimated nutritional needs x <2 months. Will liberalize diet to Regular d/t signs and symptoms of malnutrition with goal of Cardiac 1800 diandra Carbohydrate Controlled diet Will order 4 oz glucerna shake 4x/day w/ medpass for increased nutrition if consumed Continue Say bid to help w/ skin healing if consumed. Time spent in the patient's overall evaluation,decision-making process, review of diagnostic data, adjustment of management, discussion with other providers, nursing nursing and ancillary staff involved in patient's care documentation, 35 minutes Allergies/Procedures Done in Hospital Allergies doxycycline Allergy (Verified 03/31/22 11:49) NEEDS FOLLOW-UP latex Allergy (Verified 03/31/22 11:49) NEEDS FOLLOW-UP Sulfa (Sulfonamide Antibiotics) Allergy (Verified 03/31/22 11:49) Anaphylaxis sulfur dioxide Allergy (Verified 03/31/22 11:49) Anaphylaxis oxycodone Adverse Reaction (Verified 03/31/22 11:49) Other makes me crazy Type of Care/Length of Stay Estimated LOS: More Than 30 Days Type of Care Needed: Intermediate Rehab Potential: Poor Prognosis: Poor Additional Orders/Day of Discharge Day of Discharge: 04/07/22 Dietary and Speech Recommendations Dietitian Recommendations/Changes: Will continue Regular diet for now due to signs and symptoms of malnutrition; monitor need to change diet to Carbohydrate- Controlled if blood glucose levels increase. Will d/c 4 oz glucerna shake 4x/day w/ medpass--pt refusing. Will continue Say bid to help w/ skin healing. Will add 1 oz extra meat/protein Q meal given improved intake at meals. Discharge Plan Admission Admit Date/Time: 03/31/22 14:23 Attending Provider: Augei Roberts Primary Care Provider: Geovanna Mott ADHESIVE PRIMER Consulting Providers: Izaiah Wilson ; Coco Romero Discharge Orders/Prescriptions Prescriptions: New amoxicillin-pot clavulanate 875-125 mg tablet 1 tab PO BID Qty: 14 0RF Continued aspirin [Adult Aspirin Regimen] 81 mg tablet,delayed release (DR/EC) 81 mg PO DAILY metoprolol succinate 50 mg tablet extended release 24 hr 50 mg PO DAILY sennosides-docusate sodium [Senna-S] 8.6-50 mg Tablet 1 tab PO BID levothyroxine [Synthroid] 100 mcg tablet 100 mcg PO DAILY trazodone 100 mg tablet 150 mg PO QHS montelukast 10 mg tablet 10 mg PO QHS albuterol sulfate 90 mcg/actuation HFA aerosol inhaler 2 puff INHALATION 4X/DAY PRN PRN (Reason: Shortness Of Breath Or Wheezing) Label Comments: 2 PUFFS BY MOUTH FOUR TIMES A DAY NEEDED acetaminophen [Tylenol] 325 mg Tablet 650 mg PO Q6H PRN PRN (Reason: Pain 1-10 Or Fever >100.7) Qty: 0 0RF Say (with collagen) 7-7-1.5 gram Powder In Packet 1 packet PO BIDCM Qty: 0 0RF gabapentin 100 mg capsule 300 mg PO TID omeprazole 40 mg Capsule,Delayed Release(Dr/Ec) 40 mg PO BID polyethylene glycol 3350 17 gram powder in packet 17 g PO DAILY ferrous sulfate [FeroSul] 325 mg (65 mg iron) tablet 325 mg PO LUNCH nystatin [Nyamyc] 100,000 unit/gram powder 1 applic topical TID Protocol: *Topical Application Instructions APPLICATION INSTRUCTIONS: apply to groin tid for redness insulin lispro [Humalog KwikPen Insulin] 100 unit/mL insulin pen 10 unit subcut TIDAC paroxetine HCl [Paxil] 20 mg Tablet 20 mg PO DAILY mirtazapine 30 mg tablet 15 mg PO QHS bumetanide 2 mg Tablet 2 mg PO TID Qty: 0 0RF potassium chloride [Klor-Con M20] 20 mEq Tablet,Er Particles/Crystals 20 meq PO DAILYCM Qty: 0 0RF Eliquis 5 mg Tablet 5 mg PO BID Qty: 0 0RF Levemir FlexTouch U-100 Insuln 100 unit/mL (3 mL) insulin pen 25 unit SUBCUT QHS Qty: 15 0RF meloxicam 7.5 mg tablet 7.5 mg DAILY Label Comments: 1 TABLET BY MOUTH DAILYTDX: Discontinued fluconazole 200 mg Tablet 400 mg PO DAILY Referrals / Follow Up: Izaiah Govea MD [Med Staff - Active Staff] - Within 2 Weeks Geovanna Mott ADHESIVE PRIMER, ADHESIVE PRIMER-C [Primary Care Provider] - Disposition Disposition (needs filled in before D/C Order can be placed): [facility]
--- NOTE | 2022-04-07 15:30 | DS.PCM_ITS ---
Providers Date of Admission: 03/31/22 Date of Discharge: 04/07/22 Primary Care Physician: Geovanna Mott, PHARMACOLOGY ASSOCIATE-C Consultations 03/31/22 16:33 Consult: Onc/Wound/studio receptionist Routine Comment: Reason For Visit: RESPIRATORY FAILURE Diagnosis Discharge Diagnosis (1) Pneumonia: Status: Acute Code(s): J18.9 - Pneumonia, unspecified organism Plan Patient is a 67-year-old lady with multiple comorbidities admitted with progressive shortness of breath and assessment of sepsis as well as acute on chronic hypoxic respiratory failure secondary to pneumonia made 1. Sepsis ? Secondary to pneumonia ? Patient admitted to a monitored bed management broad-spectrum antibiotic therapy with vancomycin and Zosyn. Blood cultures came back positive 1 out of 2 bottles for gram-positive cocci in clusters. 10 out to be staph epi. 2. Acute on chronic hypoxic respiratory failure ? Secondary to pneumonia management of patient pneumonia as described above. Patient managed on noninvasive ventilation with BiPAP ? 04/04/2022 patient has been weaned off noninvasive ventilation currently on nasal cannula 3. Acute kidney injury ? Superimposed on chronic kidney disease stage III ? Kidney function on admission was 2.28 did improve with rehydration 4. Chronic congestive heart failure with preserved ejection fraction ? EF of 55% patient is on diuretics with monitoring of strict input and output Daily weight as well as creatinine 5. Anemia - Secondary to chronic disorder monitoring H&H and transfuse if patient becomes symptomatic or hemoglobin falls below 7 6. 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 Patient underwent left great toe amputation on 12/16/2021. Patient is followed by vascular surgeon Dr. Govea plan is for patient to undergo angiogram with possible intervention if needed 7. Class I obesity BMI of 32.5 ? Weight loss advised 8. Diabetes mellitus type 2 I did continue the patient home insulin regimen in addition to Accu-Cheks before meals and at bedtime with sliding scale coverage 9. Hypothyroidism - Patient is on levothyroxine home dose continued 10. Diabetic polyneuropathy ? Patient is on Neurontin 300 mg p.o. 3 times daily continued 11. Paroxysmal A-fib ? Rate controlled on metoprolol and systemic anticoagulation with apixaban which was held after patient was found to be bleeding around headlines plan is to resume as soon as possible 12. Coronary artery disease ? We will continue patient aspirin as well as beta-blockers 13. DVT prophylaxis ? On Eliquis 14. Severe acute malnutrition related to inadequate oral intake as evidenced by unintentional wt loss of 7.4% and po intake meeting <75% of estimated nutriti onal needs x <2 months. Will liberalize diet to Regular d/t signs and symptoms of malnutrition with goal of Cardiac 1800 diandra Carbohydrate Controlled diet Will order 4 oz glucerna shake 4x/day w/ medpass for increased nutrition if consumed Continue Say bid to help w/ skin healing if consumed. Time spent in the patient's overall evaluation,decision-making process, review of diagnostic data, adjustment of management, discussion with other providers, nursing nursing and ancillary staff involved in patient's care documentation, 35 minutes Medications at Discharge Home Medications aspirin 81 mg tablet,delayed release (Adult Aspirin Regimen) 81 mg PO DAILY heart 05/17/21 metoprolol succinate 50 mg tablet,extended release 24 hr 50 mg PO DAILY BLOOD PRESSURE 11/08/21 levothyroxine 100 mcg tablet (Synthroid) 100 mcg PO DAILY THYROID 12/13/21 montelukast 10 mg tablet 10 mg PO QHS ALLERGIES 12/13/21 sennosides 8.6 mg-docusate sodium 50 mg tablet (Senna-S) 1 tab PO BID STOOL SOFTNER 12/13/21 trazodone 100 mg tablet 150 mg PO QHS SLEEP 12/13/21 albuterol sulfate 90 mcg/actuation aerosol inhaler 2 puff inhalation 4X/DAY PRN PRN Shortness Of Breath Or Wheezing 12/19/21 acetaminophen 325 mg tablet (Tylenol) 650 mg PO Q6H PRN PRN Pain 1-10 Or Fever >100.7 #0 tabs 12/21/21 arginine 7 gram-glutam 7 gram-CaHMB 1.5 [id number]-min oral pwd pkt (Say (with collagen)) 1 packet PO BIDCM #0 ea 12/21/21 ferrous sulfate 325 mg (65 mg iron) tablet (FeroSul) 325 mg PO LUNCH SUPPLEMENT 12/28/21 insulin lispro 100 unit/mL subcutaneous pen (Humalog KwikPen (U-100) Insulin) 10 unit subcut TIDAC DIABETES 12/28/21 nystatin 100,000 unit/gram topical powder (Nyamyc) 1 applic topical TID IRRITATION 12/28/21 omeprazole 40 mg capsule,delayed release 40 mg PO BID GERD 12/28/21 polyethylene glycol 3350 17 gram oral powder packet 17 g PO DAILY CONSTIPATION 12/28/21 paroxetine HCl 20 mg tablet (Paxil) 20 mg PO DAILY 01/12/22 mirtazapine 30 mg tablet 15 mg PO QHS 02/17/22 apixaban 5 mg tablet (Eliquis) 5 mg PO BID #0 tabs 02/24/22 bumetanide 2 mg tablet 2 mg PO TID #0 tabs 02/24/22 insulin detemir U-100 100 unit/mL (3 mL) subcutaneous pen (Levemir FlexTouch U- 100 Insulin) 25 unit (0.25 mL) subcut QHS blood sugar #15 mL 02/24/22 potassium chloride 20 mEq tablet,extended release(part/cryst) (Klor-Con M) 20 meq PO DAILYCM #0 tabs 02/24/22 gabapentin 100 mg capsule 300 mg PO TID NERVE PAIN 03/23/22 meloxicam 7.5 mg tablet 7.5 mg DAILY 03/31/22 amoxicillin 875 mg-potassium clavulanate 125 mg tablet 1 tab PO BID #14 tabs 04/07/22 Hospital Course Summary of Care Provided Minutes Spent on Discharge: 35 Physical Exam Narrative GENERAL: cooperative but on BiPAP HEENT: Atraumatic; normocephalic EYES; Anicteric, Normal Conjunctiva NECK; supple, normal thyroid, RESPIRATORY: Diminished to auscultation CARDIOVASCULAR: Regular S1 S2, GI: soft, normoactive bowel sounds, : No Renal angle tenderness; EXTREMITIES: No edema, no clubbing, MUSCULOSKELETAL: no muscle wasting NEURO: Awake; no lateralizing signs. SKIN: No Rash PSYCH; Flat affect Medical Records Data Medical Nutrition Assessment Dietitian: Malnutrition Criteria Met Start: 04/01/22 11:51 Freq: Status: Active Protocol: Document 04/04/22 11:06 RMA (Rec: 04/04/22 11:06 RMA [id number]) Nutrition Malnutrition Evidence of Malnutrition Exists Yes Malnutrition (severe): Chronic Evidenced By Suboptimal Energy Intake ( Severe),Weight Loss (Severe) Intake Problem Increased Nutrient Needs (specify) Etiology for protein related to skin status/increased demands for wound healing Signs/Symptoms as evidenced by PI to L buttock, ayad heals, L toes w/ diabetic foot ulcers and non healing L great toe amputation ; receiving Say bid to help w/ wound healing Status Active Problem Clinical Problem Acute Disease or Injury Related Malnutrition Etiology Severe protein-calorie malnutrition in the context of chronic disease/debility related to inadequate oral intake and increased nutrient needs Signs/Symptoms as evidenced by unintentional wt loss of 7.4% and po intake meeting <75% of estimated nutritional needs x last 2 months Status Active Problem Recommendation Dietitian Recommendations/Changes Will continue Regular diet for now due to signs and symptoms of malnutrition; monitor need to change diet to Carbohydrate- Controlled if blood glucose levels increase. Will d/c 4 oz glucerna shake 4x/day w/ medpass--pt refusing . Will continue Say bid to help w/ skin healing. Will add 1 oz extra meat/ protein Q meal given improved intake at meals. Weight / BMI Weight Weight: 90.1 kg Body Mass Index (BMI) 31.8 ABG / Lab / Microbiology Data Result Diagrams: 04/06/22 09:35 04/06/22 09:35 Laboratory: Laboratory Results - last 24 hr 04/06/22 17:16: POC Glucose 164 H 04/06/22 22:23: POC Glucose 181 H 04/07/22 12:05: POC Glucose 177 H Microbiology: Microbiology 03/31/22 15:00 Blood Culture (Wb) - Right Forearm Blood Culture - Final No growth in 5 days. 04/05/22 05:33 Stool C. difficile DNA Amplification - Final 03/31/22 14:13 Blood Culture (Wb) - Central Line Bacteria Detection (PCR) - Final Staphylococcus epidermidis mecA Resistance Marker 03/31/22 14:13 Blood Culture (Wb) - Central Line Blood Culture - Final Staphylococcus epidermidis 03/31/22 22:30 Urine, Clean Catch Legionella Antigen - Final 03/31/22 22:30 Urine, Clean Catch Streptococcus pneumoniae Antigen (M - Fin al 03/31/22 12:10 Nasal Secretion SARS-CoV-2 & FLU Antigen (Rapid) - Final D/C Instructions Discharge Diet: 1800 Calorie Control Diet Discharge Activity: Return to Normal Activity Call your doctor if you observe: Fever of 101 or Higher, Shortness of breath, Fainting spells and Chest pain Meaningful Use Info Meaningful Use Diagnoses (Choose all that apply): CHF CHF LAURA/ARB ordered at discharge?: No Reason LAURA/ARB not ordered?: Not indicated and Worsening renal disease Documented LVEF (%): 55 Discharge Plan Admission Admit Date/Time: 03/31/22 14:23 Attending Provider: Augie Roberts Primary Care Provider: Geovanna Mott PHARMACOLOGY ASSOCIATE Consulting Providers: Izaiah Wilson ; Coco Romero Discharge Orders/Prescriptions Prescriptions: New amoxicillin-pot clavulanate 875-125 mg tablet 1 tab PO BID Qty: 14 0RF Continued aspirin [Adult Aspirin Regimen] 81 mg tablet,delayed release (DR/EC) 81 mg PO DAILY metoprolol succinate 50 mg tablet extended release 24 hr 50 mg PO DAILY sennosides-docusate sodium [Senna-S] 8.6-50 mg Tablet 1 tab PO BID levothyroxine [Synthroid] 100 mcg tablet 100 mcg PO DAILY trazodone 100 mg tablet 150 mg PO QHS montelukast 10 mg tablet 10 mg PO QHS albuterol sulfate 90 mcg/actuation HFA aerosol inhaler 2 puff INHALATION 4X/DAY PRN PRN (Reason: Shortness Of Breath Or Wheezing) Label Comments: 2 PUFFS BY MOUTH FOUR TIMES A DAY NEEDED acetaminophen [Tylenol] 325 mg Tablet 650 mg PO Q6H PRN PRN (Reason: Pain 1-10 Or Fever >100.7) Qty: 0 0RF Say (with collagen) 7-7-1.5 gram Powder In Packet 1 packet PO BIDCM Qty: 0 0RF gabapentin 100 mg capsule 300 mg PO TID omeprazole 40 mg Capsule,Delayed Release(Dr/Ec) 40 mg PO BID polyethylene glycol 3350 17 gram powder in packet 17 g PO DAILY ferrous sulfate [FeroSul] 325 mg (65 mg iron) tablet 325 mg PO LUNCH nystatin [Nyamyc] 100,000 unit/gram powder 1 applic topical TID Protocol: *Topical Application Instructions APPLICATION INSTRUCTIONS: apply to groin tid for redness insulin lispro [Humalog KwikPen Insulin] 100 unit/mL insulin pen 10 unit subcut TIDAC paroxetine HCl [Paxil] 20 mg Tablet 20 mg PO DAILY mirtazapine 30 mg tablet 15 mg PO QHS bumetanide 2 mg Tablet 2 mg PO TID Qty: 0 0RF potassium chloride [Klor-Con M20] 20 mEq Tablet,Er Particles/Crystals 20 meq PO DAILYCM Qty: 0 0RF Eliquis 5 mg Tablet 5 mg PO BID Qty: 0 0RF Levemir FlexTouch U-100 Insuln 100 unit/mL (3 mL) insulin pen 25 unit SUBCUT QHS Qty: 15 0RF meloxicam 7.5 mg tablet 7.5 mg DAILY Label Comments: 1 TABLET BY MOUTH DAILYTDX: Discontinued fluconazole 200 mg Tablet 400 mg PO DAILY Referrals / Follow Up: Izaiah Govea MD [Med Staff - Active Staff] - Within 2 Weeks Geovanna Mott PHARMACOLOGY ASSOCIATE, PHARMACOLOGY ASSOCIATE-C [Primary Care Provider] - Disposition Disposition (needs filled in before D/C Order can be placed): [facility] Charges/Coding Visit Charges Inpatient E&M: 63351 Disch Hosp >30min
[2022-04-07 15:36] VITALS: BP 111/77; PULSE 99; RESP 16; TEMP 36.6; O2SAT 99
[2022-04-07 15:46] VITALS: BP 111/77; PULSE 99; RESP 16; TEMP 36.6; O2SAT 99
[2022-04-07 16:00] LABS: Bedside Glucose 180 mg/dL (74-106)
--- NOTE | 2022-04-07 16:11 | CASEMGMT ---
GREG sent orders to [place] via [employer] and faxed them to [phone]. S SW also sent orders via [employer]. GREG arranged for patient to get picked up at 7p by [facility] via cot. SW notified RN, pathology secretary/transcriptionist, and patient. Patient declined wanting to call anyone. GREG called [place] and notified them of cook pickled meat time and that orders were sent to them via fax. Plan: d/c back to [place] under intermediate level of care. Physicians transported via cot. Clare DASILVA
--- NOTE | 2022-04-07 18:03 | NURSING ---
Called report to CHRISTELLE Bush at [facility]
[2022-04-08 01:16] LABS: Bedside Glucose 120 mg/dL (74-106)
== END 2022-04-07 19:45 | disposition skilled nursing facility (03) | DRG 193 ==
LOC: ED 14:25 → PCU 15:03
PROVIDERS: Internal Medicine; Emergency Provider Emergency Medicine; PCP Nurse Practitioner Adult Health; Visit Provider Internal Medicine
DX: J18.9 Pneumonia, unspecified organism (principal); J96.21 Acute and chronic respiratory failure with hypoxia; E43 Unspecified severe protein-calorie malnutrition; J96.22 Acute and chronic respiratory failure with hypercapnia; E11.52 Type 2 diabetes mellitus with diabetic peripheral angiopathy with gangrene; I13.0 Hypertensive heart and chronic kidney disease with heart failure and stage 1 through stage 4 chronic kidney disease, or unspecified chronic kidney disease; I96 Gangrene, not elsewhere classified; J44.0 Chronic obstructive pulmonary disease with (acute) lower respiratory infection; I50.32 Chronic diastolic (congestive) heart failure; N17.9 Acute kidney failure, unspecified; E11.649 Type 2 diabetes mellitus with hypoglycemia without coma; D63.8 Anemia in other chronic diseases classified elsewhere; I27.23 Pulmonary hypertension due to lung diseases and hypoxia; N18.30 Chronic kidney disease, stage 3 unspecified; Z79.4 Long term (current) use of insulin; E11.22 Type 2 diabetes mellitus with diabetic chronic kidney disease; E11.42 Type 2 diabetes mellitus with diabetic polyneuropathy; I48.0 Paroxysmal atrial fibrillation; Z89.412 Acquired absence of left great toe; I34.0 Nonrheumatic mitral (valve) insufficiency; E03.9 Hypothyroidism, unspecified; I25.10 Atherosclerotic heart disease of native coronary artery without angina pectoris; E78.5 Hyperlipidemia, unspecified; K21.9 Gastro-esophageal reflux disease without esophagitis; G47.33 Obstructive sleep apnea (adult) (pediatric); R19.7 Diarrhea, unspecified; E66.9 Obesity, unspecified; G47.00 Insomnia, unspecified; Z68.32 Body mass index [BMI] 32.0-32.9, adult; Z20.822 Contact with and (suspected) exposure to COVID-19; Z99.81 Dependence on supplemental oxygen; Z79.01 Long term (current) use of anticoagulants; Z79.82 Long term (current) use of aspirin; Z95.5 Presence of coronary angioplasty implant and graft; Z87.891 Personal history of nicotine dependence
CPT/HCPCS: 36415; 36569; 36600; 71045; 80048; 80053; 80202; 82436; 82570; 82803; 82962; 83605; 83735; 83880; 84100; 84133; 84145; 84300; 84540; 85025; 85610; 85730; 87040; 87077; 87149; 87186; 87426; 87428; 87449; 87493; 87641; 93005; 94002; 94003; 94640; 94668; 94762; 97110; 97162; 97166; 97802; 97803; 99284; 99285; J7030; J7040; J7050; A4216; J1940

== ENCOUNTER 2022-04-12 09:08 | Day surgery (SDC) | payer MEDICARE, MEDICAID, SELFPAY ==
[2022-04-11 08:07] VITALS: BMI 34.6
--- NOTE | 2022-04-12 11:44 | PCM.OPRPT ---
Report of Operation Date of Procedure: 04/12/22 Pre-Operative Diagnosis: atherosclerosis with gangrene, left lower extremity Post-Operative Diagnosis: same Surgery/Procedure Performed:: aortogram, left lower extremity runoff Description of Surgical Findings:: tibial occlusion at ankle, minimal collateral branches in foot Surgeon: Izaiah Govea Type of Anesthesia: Local and Sedation,Conscious Estimated Blood Loss (mL): 5
[2022-04-12 14:20] LABS: Bedside Glucose 34 mg/dL (74-106)
== END 2022-04-12 14:40 | disposition skilled nursing facility (03) ==
PROVIDERS: PCP Nurse Practitioner Adult Health; Visit Provider Surgery Trauma Surgery
DX: E11.52 Type 2 diabetes mellitus with diabetic peripheral angiopathy with gangrene (principal); I70.262 Atherosclerosis of native arteries of extremities with gangrene, left leg; J44.9 Chronic obstructive pulmonary disease, unspecified; I11.0 Hypertensive heart disease with heart failure; I50.32 Chronic diastolic (congestive) heart failure; E11.42 Type 2 diabetes mellitus with diabetic polyneuropathy; I70.0 Atherosclerosis of aorta; I48.91 Unspecified atrial fibrillation; Z79.4 Long term (current) use of insulin; Z79.01 Long term (current) use of anticoagulants; Z79.82 Long term (current) use of aspirin; Z79.890 Hormone replacement therapy; Z79.899 Other long term (current) drug therapy; Z99.81 Dependence on supplemental oxygen
CPT/HCPCS: 36200; 36245; 75625; 75710; 76937; 82962; 99152; 99153; C1760; C1769; J7040

== ENCOUNTER 2022-04-25 15:31 | Emergency (ER) | payer MEDICARE, MEDICAID, SELFPAY ==
[2022-04-25] VITALS (8 sets, daily range): BP systolic 97–166; BP diastolic 62–142; PULSE 103–116; RESP 18–24; TEMP 36.3; O2SAT 93–100; BMI 33.3
--- NOTE | 2022-04-25 15:50 | EX.ED.DYSGE1 ---
HPI History of Present Illness Chief Complaint: Hypoglycemia Detail of Chief Complaint: Hypoglycemia, poor p.o. intake and feet pain Informant: patient, EMS and SNF Onset/Context/Timing Onset: Hours Context: Sudden Onset Timing: Continuous Quality: Low blood sugar even after glucose tablets Location: Nursing facility Current Severity: Mild Maximum Severity: Moderate Worsened by: Poor p.o. intake Relieved by: Improved after glucose tablets Associated Symptoms Associated Symptoms: Nausea and vomiting after taking glucose tablets Narrative Narrative: Patient is a 67-year-old woman with history of hypothyroidism, type 1 diabetes, depression who is on long-term anticoagulant. She was brought to the emergency room because of decreased level consciousness due to hypoglycemia. Patient admits she did not eat much today. She does report nausea and vomiting after given glucose tablets. Blood sugar per paramedics was 68. Patient denies fever, chills night sweats. She denies headache, visual, ocular auditory symptoms. She denies ear pain or discharge from ears. She denies rhinorrhea, congestion or postnasal drainage. She denies sore throat. She denies chest discomfort. She denies respiratory symptoms. Patient reports nausea vomiting x1 after glucose tablets. She denies diarrhea or constipation. She denies urologic symptoms. She states she has had feet pain. She has history of diabetic neuropathy and peripheral arterial disease. She was seen by Dr. Izaiah Govea March 23, 2022. His assessment was amputation left great toe and I gangrene of second and third toe. L EAS performed on September 2021 identified peripheral arterial disease but noncompressible vessels which limit of the interpretation of the results. Patient has abnormal kidney function and CT was not obtained since the it was his opinion that this would not add to any value. Patient is seen by Dr. No microwave oven assembler at the wound center. Patient was recently admitted for pneumonia and sepsis. She had superimposed chronic kidney disease on top of acute kidney disease. He does have history of congestive heart failure with preserved ejection fracture of 55%. She does have anemia due to chronic illness. She is on Eliquis for paroxysmal atrial fibrillation. Old records do indicate that she does have history of diabetic polyneuropathy. [facility] Medical History Acute cervical myofascial strain Acute on chronic respiratory failure with hypoxemia Acute respiratory failure with hypoxia Amputated toe of left foot Anemia Asthma Atherosclerotic heart disease of [place] coronary artery without angina pectoris Atrial fibrillation Atrial fibrillation with rapid ventricular response CAD (coronary artery disease) CHF (congestive heart failure) Chronic congestive heart failure Chronic heart failure with preserved ejection fraction (HFpEF) Chronic heel ulcer Chronic respiratory failure with hypoxia, on home oxygen therapy Chronic ulcer of great toe of left foot Closed head injury Congestive heart failure (CHF) COPD (chronic obstructive pulmonary disease) Current use of insulin Decubitus ulcer of dorsum of foot, stage 2 Decubitus ulcer of left heel, stage 2 Decubitus ulcer of left heel, stage 3 Decubitus ulcer, heel, left, unstageable Depression Diabetes mellitus with diabetic polyneuropathy Diabetes type 2, controlled Diabetic foot ulcers Diverticulitis Dry gangrene Essential hypertension Former smoker History of amputation of left great toe History of non-ST elevation myocardial infarction (NSTEMI) (02/24/17) Hyperlipidemia Hypothyroid Morbid obesity Multiple wounds Myocardial infarct Non-rheumatic tricuspid valve insufficiency Nondisplaced fracture of distal phalanx of right great toe, initial encounter for closed fracture Nonrheumatic mitral (valve) insufficiency Obesity Obstructive sleep apnea On home O2 Renal insufficiency Secondary pulmonary arterial hypertension Thrombocytopenia Type 2 diabetes mellitus Vitamin D deficiency Home Medications aspirin 81 mg tablet,delayed release (Adult Aspirin Regimen) 81 mg PO DAILY heart 05/17/21 [History Last Taken 12/28/21] metoprolol succinate 50 mg tablet,extended release 24 hr 50 mg PO DAILY BLOOD PRESSURE 11/08/21 [History Last Taken 12/27/21] levothyroxine 100 mcg tablet (Synthroid) 100 mcg PO DAILY THYROID 12/13/21 [History Last Taken 12/28/21] montelukast 10 mg tablet 10 mg PO QHS ALLERGIES 12/13/21 [History Last Taken 12/27/21] sennosides 8.6 mg-docusate sodium 50 mg tablet (Senna-S) 1 tab PO BID STOOL SOFTNER 12/13/21 [History Last Taken 12/27/21] trazodone 100 mg tablet 150 mg PO QHS SLEEP 12/13/21 [History Last Taken 12/27/21] albuterol sulfate 90 mcg/actuation aerosol inhaler 2 puff inhalation 4X/DAY PRN PRN Shortness Of Breath Or Wheezing 12/19/21 [History Last Taken Unknown] acetaminophen 325 mg tablet (Tylenol) 650 mg PO Q6H PRN PRN Pain 1-10 Or Fever >100.7 #0 tabs 12/21/21 [Rx Last Taken 04/12/22] arginine 7 gram-glutam 7 gram-CaHMB 1.5 wkpi-knmof-mc-min oral pwd pkt (Say (with collagen)) 1 packet PO BIDCM #0 ea 12/21/21 [Rx Last Taken 12/27/21] ferrous sulfate 325 mg (65 mg iron) tablet (FeroSul) 325 mg PO LUNCH SUPPLEMENT 12/28/21 [History Last Taken 12/27/21] insulin lispro 100 unit/mL subcutaneous pen (Humalog KwikPen (U-100) Insulin) 10 unit subcut TIDAC DIABETES 12/28/21 [History Last Taken 12/27/21] nystatin 100,000 unit/gram topical powder (Nyamyc) 1 applic topical TID IRRITATION 12/28/21 [History Last Taken 12/28/21] omeprazole 40 mg capsule,delayed release 40 mg PO BID GERD 12/28/21 [History Last Taken 12/27/21] polyethylene glycol 3350 17 gram oral powder packet 17 g PO DAILY CONSTIPATION 12/28/21 [History Last Taken 12/27/21] paroxetine HCl 20 mg tablet (Paxil) 20 mg PO DAILY 01/12/22 [History Last Taken Unknown] mirtazapine 30 mg tablet 15 mg PO QHS 02/17/22 [History Last Taken Unknown] apixaban 5 mg tablet (Eliquis) 5 mg PO BID #0 tabs 02/24/22 [Rx Last Taken 04/10/22] bumetanide 2 mg tablet 2 mg PO TID #0 tabs 02/24/22 [Rx Last Taken Unknown] insulin detemir U-100 100 unit/mL (3 mL) subcutaneous pen (Levemir FlexTouch U-100 Insulin) 25 unit (0.25 mL) subcut QHS blood sugar #15 mL 02/24/22 [Rx Last Taken 12/27/21] potassium chloride 20 mEq tablet,extended release(part/cryst) (Klor-Con M) 20 meq PO DAILYCM #0 tabs 02/24/22 [Rx Last Taken Unknown] gabapentin 100 mg capsule 300 mg PO TID NERVE PAIN 03/23/22 [History Last Taken Unknown] meloxicam 7.5 mg tablet 7.5 mg DAILY 03/31/22 [History Last Taken Unknown] Allergy/AdvReac Type Severity Reaction Status Date / Time doxycycline Allergy NEEDS Verified 04/25/22 15:40 FOLLOW-UP latex Allergy NEEDS Verified 04/25/22 15:40 FOLLOW-UP Sulfa (Sulfonamide Allergy Anaphylaxis Verified 04/25/22 15:40 Antibiotics) sulfur dioxide Allergy Anaphylaxis Verified 04/25/22 15:40 oxycodone AdvReac Other Verified 04/25/22 15:40 Family History Grandmother Diabetes Mother Heart disease Surgical History H/O right heart catheterization History of cataract surgery History of coronary artery stent placement (02/24/17) History of heart artery stent Tubal ligation status Social History household members: none housing: other details: [facility] Living. Smoking Status: Former smoker how long ago did patient quit smokin alcohol intake: former year quit: 1999 substance use type: does not use caffeine: Yes Type: carbonated beverages and tea ROS ROS ED Constitutional Constitutional ED: Denies chills, fever(s), subjective, sweats or weight loss Eyes Eyes: Denies blurry vision, change in vision or diplopia ENT ENT ED: Denies ear pain, rhinorrhea or sore throat Cardiovascular Cardiovascular: Denies chest pain, orthopnea, palpitations or racing heartbeat Respiratory/Chest Respiratory/Chest: Reports cough and dyspnea; Denies orthopnea Gastrointestinal Gastrointestinal: Reports diarrhea, nausea and vomiting; Denies abdominal pain or melena Genitourinary Genitourinary ED: Denies dysuria, hematuria or urinary frequency Musculoskeletal Musculoskeletal: Denies arthralgias, back pain or myalgias Integumentary Reports other Details: Right gangrene toes of left foot. Neurologic Neurologic: Reports paresthesias and weakness Endocrine Endocrinology: Reports cold intolerance; Denies heat intolerance, polydipsia, polyphagia or polyuria Hematologic/Lymphatic Hematologic/Lymphatic: Reports anemia, easy bleeding and easy bruising EXAM Physical Exam Const Vital Signs: 04/25/22 15:33 04/25/22 15:43 04/25/22 17:45 Temperature 97.4 F L Temperature Source Oral Pulse Rate 113 H 106 H Respiratory Rate 19 H 18 Respiratory Pattern Normal Blood Pressure 166/142 H 109/73 Blood Pressure Mean 150 85 Pulse Ox 99 Oxygen Delivery Method Nasal Cannula Nasal Cannula Oxygen Flow Rate (L/min) 4 4 04/25/22 18:17 04/25/22 18:31 04/25/22 18:45 Temperature Temperature Source Pulse Rate 116 H 116 H 111 H Respiratory Rate 24 H 18 22 H Respiratory Pattern Blood Pressure 97/84 H 135/111 H 153/128 H Blood Pressure Mean 90 121 138 Pulse Ox 100 Oxygen Delivery Method Oxygen Flow Rate (L/min) 04/25/22 19:01 04/25/22 19:15 Temperature Temperature Source Pulse Rate 103 H 111 H Respiratory Rate 23 H 22 H Respiratory Pattern Blood Pressure 110/90 H 117/62 Blood Pressure Mean 99 77 Pulse Ox Oxygen Delivery Method Oxygen Flow Rate (L/min) Positive well nourished, well developed, obese and unkempt General Appearance ED: unkempt, well developed, NAD and pallor; Negative for cyanotic or diaphoretic Nutritional Appearance: obese HEENT Reports dry mucous membranes Mouth ED: Yes dry mucous membranes Mouth: dry mucous membranes Eyes PERRL and EOMs intact bilaterally General Eye ED: Yes pale conjunctiva; Negative for scleral icterus Neck no lymphadenopathy, supple and no JVD Chest Wall inspection of chest normal and palpation of chest normal Resp normal respiratory effort and clear to auscultation bilaterally Cardio regular rate, regular rhythm, S1 normal heart sound, S2 normal heart sound and no murmurs GI normal to inspection, nondistended, normoactive bowel sounds, non-tender, non-distended and no masses; Negative for hepatosplenomegaly Palpation: soft Back/Spine no CVA tenderness Extremity Extremity Narrative: Evidence of peripheral arterial disease both right and left foot with dry gangrene left foot. Neuro oriented x3, CN's II-XII intact bilaterally and No no sensory deficits noted Neuro Narrative: Patient is awake but not alert. Sensorium / Orientation: Negative for alert Psych Appearance: unkempt Mood & Affect: depressed Skin No no rashes or lesions noted, No no wounds and No skin turgor normal General Skin Exam: pallor; Negative for elasticity normal or jaundice MDM MDM MDM Narrative Medical decision making narrative: Suspect patient's hyperglycemia is due to poor caloric intake. Will assess BG T. Because she has known history of chronic kidney disease with poor p.o. intake will obtain basic metabolic panel to assess electrolytes, and renal function as well as glucose CO2 anion gap. CBC to evaluate white count differential. Also to determine if patient's had a significant drop in her hemoglobin since she appears pale. Monitor reveals a sinus rhythm. Lab Data Attestation: I reviewed the patient's lab results. Lab results narrative: CBC reveals anemia. Patient has chronic anemia. Hemoglobin is higher than baseline. Electrolyte panel reveals a potassium of 5.9, chloride of 110 with a BUN of 51 and a creatinine of 1.9. This would indicate prerenal azotemia/dehydration. Because patient has hyperkalemia and there is no comment regarding hemolysis will obtain EKG to assess for EKG changes. Glucose is low. 1 amp of D50 was ordered. Review of prior records indicates that patient's potassium is elevated when her creatinine becomes elevated. Patient's creatinine varies between 1.32 and 2.14. Labs: Laboratory Results - last 24 hr 04/25/22 04/25/22 04/25/22 16:00 16:00 17:40 WBC 8.5 RBC 2.85 L Hgb 8.2 L Hct 29.2 L MCV 102.5 H MCH 28.8 MCHC 28.1 L RDW Std Deviation 69.7 H RDW Coeff of Magen 18.3 H Plt Count 167 MPV 10.6 Immature Gran % (Auto) 0.600 Neut % (Auto) 74.7 H Lymph % (Auto) 11.9 L Banks % (Auto) 8.0 Eos % (Auto) 4.4 Baso % (Auto) 0.4 Absolute Neuts (auto) 6.3 Absolute Lymphs (auto) 1.01 Nucleated RBC % 0 Differential Comment SCANNED Hypochromasia 1+ Anisocytosis 2+ Microcytosis 1+ Macrocytosis 1+ Sodium 143 Potassium 5.9 H Chloride 110 H Carbon Dioxide 32.0 Anion Gap 1 L BUN 51 H Creatinine 1.90 H Estim Creat Clear Calc 26.21 Est GFR (MDRD) Af Amer 34 L Est GFR (MDRD) Non-Af 28 L BUN/Creatinine Ratio 26.8 H Glucose 53 L Calcium 10.1 Urine Color Yellow Urine Clarity Clear Urine pH 5.0 Ur Specific [place] 1.010 Urine Protein Negative Urine Glucose (UA) Normal Urine Ketones Negative Urine Occult Blood 50 H Urine Nitrite Negative Urine Bilirubin Negative Urine Urobilinogen Normal Ur Leukocyte Esterase 100 H Urine RBC 0 SEEN Urine WBC 0-5 SEEN Ur Squamous Epith Cells 0 SEEN Urine Bacteria 0 SEEN Urine Mucus 0 SEEN POC Glucose 04/25/22 04/25/22 17:54 19:58 WBC RBC Hgb Hct MCV MCH MCHC RDW Std Deviation RDW Coeff of Magen Plt Count MPV Immature Gran % (Auto) Neut % (Auto) Lymph % (Auto) Banks % (Auto) Eos % (Auto) Baso % (Auto) Absolute Neuts (auto) Absolute Lymphs (auto) Nucleated RBC % Differential Comment Hypochromasia Anisocytosis Microcytosis Macrocytosis Sodium Potassium Chloride Carbon Dioxide Anion Gap BUN Creatinine Estim Creat Clear Calc Est GFR (MDRD) Af Amer Est GFR (MDRD) Non-Af BUN/Creatinine Ratio Glucose Calcium Urine Color Urine Clarity Urine pH Ur Specific [place] Urine Protein Urine Glucose (UA) Urine Ketones Urine Occult Blood Urine Nitrite Urine Bilirubin Urine Urobilinogen Ur Leukocyte Esterase Urine RBC Urine WBC Ur Squamous Epith Cells Urine Bacteria Urine Mucus POC Glucose 111 H 121 H Rhythm Strip Rhythm Strip: Sinus Tach Rate: 105 Ectopy: PVC(s) (Occasional) EKG Initial EKG: Attestation: I personally reviewed and interpreted this EKG as follows: Interpretation: Atrial Fibrillation (Rate is 116. QS duration 78 ms. QS duration 3 and 24 ms. [place] is normal. There is low voltage. There is decreased anterior force. The EKG is consistent with atrial fibs flutter with variable conduction.) Treatment and Re-Evaluation Narrative: There is no evidence for hyperkalemia. Since patient has a rapid rate and on metoprolol for rate control we will administer IV metoprolol. Patient was reassessed at 2017. Heart rate is 100-105 on the monitor. She is in A-fib. Plan is to discharge to home and increase metoprolol from 50 mg a day to 100 mg a day. Discharge Plan Triage Chief Complaint: Hypoglycemia ED Provider: Aaron Ayala Dx/Rx/DC Orders Clinical Impression: Atrial fibrillation and flutter, Dry gangrene, Hypertension, Diabetic polyneuropathy, Hypoglycemia due to type 1 diabetes mellitus, Acute hyperkalemia, Anticoagulant long-term use, Chronic kidney disease (CKD) stage G3b/A1, moderately decreased glomerular filtration rate (GFR) between 30-44 mL/min/1.73 square meter and albuminuria creatinine ratio less than 30 mg/g Instructions: ED AFIB, ED Hyperkalemia, Diabetic Neuropathy Prescriptions: No Action aspirin [Adult Aspirin Regimen] 81 mg tablet,delayed release (DR/EC) 81 mg PO DAILY metoprolol succinate 50 mg tablet extended release 24 hr 50 mg PO DAILY sennosides-docusate sodium [Senna-S] 8.6-50 mg Tablet 1 tab PO BID levothyroxine [Synthroid] 100 mcg tablet 100 mcg PO DAILY trazodone 100 mg tablet 150 mg PO QHS montelukast 10 mg tablet 10 mg PO QHS albuterol sulfate 90 mcg/actuation HFA aerosol inhaler 2 puff INHALATION 4X/DAY PRN PRN (Reason: Shortness Of Breath Or Wheezing) Label Comments: 2 PUFFS BY MOUTH FOUR TIMES A DAY NEEDED acetaminophen [Tylenol] 325 mg Tablet 650 mg PO Q6H PRN PRN (Reason: Pain 1-10 Or Fever >100.7) Qty: 0 0RF Say (with collagen) 7-7-1.5 gram Powder In Packet 1 packet PO BIDCM Qty: 0 0RF gabapentin 100 mg capsule 300 mg PO TID omeprazole 40 mg Capsule,Delayed Release(Dr/Ec) 40 mg PO BID polyethylene glycol 3350 17 gram powder in packet 17 g PO DAILY ferrous sulfate [FeroSul] 325 mg (65 mg iron) tablet 325 mg PO LUNCH nystatin [Nyamyc] 100,000 unit/gram powder 1 applic topical TID Protocol: *Topical Application Instructions APPLICATION INSTRUCTIONS: apply to groin tid for redness insulin lispro [Humalog KwikPen Insulin] 100 unit/mL insulin pen 10 unit subcut TIDAC paroxetine HCl [Paxil] 20 mg Tablet 20 mg PO DAILY mirtazapine 30 mg tablet 15 mg PO QHS bumetanide 2 mg Tablet 2 mg PO TID Qty: 0 0RF potassium chloride [Klor-Con M20] 20 mEq Tablet,Er Particles/Crystals 20 meq PO DAILYCM Qty: 0 0RF Eliquis 5 mg Tablet 5 mg PO BID Qty: 0 0RF Levemir FlexTouch U-100 Insuln 100 unit/mL (3 mL) insulin pen 25 unit SUBCUT QHS Qty: 15 0RF meloxicam 7.5 mg tablet 7.5 mg DAILY Label Comments: 1 TABLET BY MOUTH DAILYTDX: Primary Care Provider: Geovanna Mott SOLUTION DESIGN AND ANALYSIS MANAGER Referrals: Geovanna Mott SOLUTION DESIGN AND ANALYSIS MANAGER, SOLUTION DESIGN AND ANALYSIS MANAGER-C [Primary Care Provider] - 3-5 Days Activity Restrictions/Additional Instructions: Need repeat basic metabolic panel in 2 to 3 days Increase metoprolol from 50 mg a day to 50 mg twice a day for rate control. Disposition Disposition: Custodial Facility
[2022-04-25 16:11] LABS: Absolute Lymphocyte Count 1.01 X10^3/uL (0.83-4.51); Absolute Neutrophil Count 6.3 X10^3/uL (2.0-7.7); Basophil# 0.03 X10^3/uL; Basophil% 0.4 % (0-1); Eosinophil# 0.37 X10^3/uL; Eosinophils% 4.4 % (0-5); Hematocrit 29.2 % (37-47); Hemoglobin 8.2 g/dL (12.0-15.0); Lymphocyte # 1.01 X10^3/ul (0.83-4.51); Lymphocyte % 11.9 % (19-41); Mean Corp Hgb Conc 28.1 g/dL (32-36); Mean Corpuscular Hgb 28.8 pg (27.0-32.0); Mean Corpuscular Volume 102.5 fL (81-99); Mean Platelet Vol. 10.6 fl (6.2-12.0); Monocyte# 0.68 X10^3/uL; NRBC Flagged by Analyzer 0 % (0-5); Neutrophil # 6.32 X10^3/uL (2.7-7.7); Neutrophil % 74.7 % (47-70); POSITIVE MORPHOLOGY YES; Platelet Count 167 K/mm3 (150-450); RBC Distribution Width CV 18.3 % (11.6-14.6); RBC Distribution Width SD 69.7 fl (35.1-43.9); Red Blood Count 2.85 M/mm3 (4.2-5.4); White Blood Count 8.5 K/mm3 (4.4-11.0)
[2022-04-25 16:12] LABS: Differential Indicated SCAN CRITERIA MET
[2022-04-25 16:32] LABS: Anion Gap 1 (5-15); BUN 51 mg/dL (7-18); BUN/Creat Ratio 26.8 RATIO (10-20); Calcium,Total 10.1 mg/dL (8.5-10.1); Chloride 110 mmol/L (98-107); EST Glomerular Filtration Rate 28 mL/min (>60); Est Glom Filt Rate - Afr Amer 34 mL/min (>60); Estimated Creatinine Clearance 26.21 ml/min; Glucose 53 mg/dL (74-106); Potassium 5.9 mmol/L (3.5-5.1); Sodium Level 143 mmol/L (136-145)
[2022-04-25 16:39] LABS: Anisocytosis 2+; Differential Comment SCANNED
[2022-04-25 16:46] LABS: Hypochromasia 1+; Macrocytosis 1+; Microcytosis 1+
[2022-04-25] MEDS: 0.9% Normal Saline 1,000 ML 1000 ML IV (16:56)
--- NOTE | 2022-04-25 17:21 | EKG12_ITS ---
Test Reason : Blood Pressure : / mmHG Vent. Rate : 116 BPM Atrial Rate : 300 BPM P-R Int : 000 ms QRS Dur : 078 ms QT Int : 324 ms P-R-T Axes : 000 077 120 degrees QTc Int : 450 ms Atrial flutter with variable A-V block Low voltage QRS Septal infarct , age undetermined Abnormal ECG Confirmed by AUGUSTO ROSS, MAEGAN ([id number]), online editor JASON PEREIRA ([id number]) on 05/01/2022 9:57:57 AM Referred By: Confirmed By:APRIL CASAS MD
[2022-04-25] MEDS: Dextrose 50%-Water 25 GM/50 ML DISP.SYRIN IV (17:22)
[2022-04-25 17:48] LABS: Bacteria 0 SEEN /hpf (None Seen); Mucous, Urine 0 SEEN /hpf (<or=2+); Red Blood Cells-Urine 0 SEEN /hpf (0-5); Squamous Epithelial Cells - UA 0 SEEN /hpf (5-10)
[2022-04-25 17:52] LABS: Color, Urine Yellow (Yellow); Glucose, Dipstick Normal (Normal); Ketone-Dipstick Negative (Negative); Leukocyte Esterase-Dipstick 100 /ul (Negative); Nitrite-Dipstick Negative (Negative); Occult Blood-Urine 50 /ul (Negative); Protein-Dipstick Negative (Negative); Urine Bilirubin Dipstick Negative (Negative); Urine Clarity Clear (Clear); Urine Urobilinogen Normal (Normal)
[2022-04-25 18:01] LABS: White Blood Cells 0-5 SEEN /hpf (0-5)
[2022-04-25 18:16] LABS: Bedside Glucose 111 mg/dL (74-106)
[2022-04-25] MEDS: Metoprolol Tartrate 5 MG/5 ML Vial IV (18:33)
[2022-04-25 20:16] LABS: Bedside Glucose 121 mg/dL (74-106)
--- NOTE | 2022-04-25 22:24 | NURSING ---
Report called to [email or web address] by this RN at this time.
== END 2022-04-25 22:25 | disposition skilled nursing facility (03) ==
PROVIDERS: Emergency Provider Emergency Medicine; PCP Nurse Practitioner Adult Health; Visit Provider Emergency Medicine
DX: I48.91 Unspecified atrial fibrillation (principal); E10.52 Type 1 diabetes mellitus with diabetic peripheral angiopathy with gangrene; Z89.412 Acquired absence of left great toe; J44.9 Chronic obstructive pulmonary disease, unspecified; I13.0 Hypertensive heart and chronic kidney disease with heart failure and stage 1 through stage 4 chronic kidney disease, or unspecified chronic kidney disease; I50.32 Chronic diastolic (congestive) heart failure; E10.42 Type 1 diabetes mellitus with diabetic polyneuropathy; E10.22 Type 1 diabetes mellitus with diabetic chronic kidney disease; E10.649 Type 1 diabetes mellitus with hypoglycemia without coma; N18.32 Chronic kidney disease, stage 3b; R11.2 Nausea with vomiting, unspecified; I25.10 Atherosclerotic heart disease of native coronary artery without angina pectoris; M79.671 Pain in right foot; M79.672 Pain in left foot; D63.8 Anemia in other chronic diseases classified elsewhere; Z87.891 Personal history of nicotine dependence; R94.4 Abnormal results of kidney function studies; E78.5 Hyperlipidemia, unspecified; Z79.01 Long term (current) use of anticoagulants; E87.5 Hyperkalemia; E66.9 Obesity, unspecified
CPT/HCPCS: 99285; 96374; 96375; 96361; 80048; 81001; 82962; 85025; 93005; P9612; A4216

== ENCOUNTER 2022-04-26 09:02 | Inpatient (IN) | payer MEDICARE, MEDICAID, SELFPAY ==
[2022-04-26] VITALS (15 sets, daily range): BP systolic 100–133; BP diastolic 49–109; PULSE 104–131; RESP 16–23; TEMP 36.1–36.9; O2SAT 82–100; BMI 33.8; BMI 30.7
--- NOTE | 2022-04-26 09:56 | EKG12_ITS ---
Test Reason : WEAKNESS Blood Pressure : / mmHG Vent. Rate : 123 BPM Atrial Rate : 000 BPM P-R Int : 000 ms QRS Dur : 072 ms QT Int : 272 ms P-R-T Axes : 000 126 142 degrees QTc Int : 389 ms Atrial fibrillation with rapid ventricular response Right axis deviation Possible Right ventricular hypertrophy Septal infarct , age undetermined Abnormal ECG Confirmed by AUGUSTO ROSS, MAEGAN ([id number]), editor producer JASON PEREIRA ([id number]) on 05/01/2022 9:32:14 AM Referred By: Confirmed By:APRIL CASAS MD
[2022-04-26] MEDS: Metoprolol Tartrate 5 MG/5 ML Vial IV ×3 (10:22→11:31)
[2022-04-26 10:39] LABS: Absolute Lymphocyte Count 0.95 X10^3/uL (0.83-4.51); Absolute Neutrophil Count 6.1 X10^3/uL (2.0-7.7); Basophil# 0.04 X10^3/uL; Basophil% 0.5 % (0-1); Eosinophil# 0.34 X10^3/uL; Eosinophils% 4.2 % (0-5); Hematocrit 28.7 % (37-47); Hemoglobin 8.2 g/dL (12.0-15.0); Lymphocyte # 0.95 X10^3/ul (0.83-4.51); Lymphocyte % 11.7 % (19-41); Mean Corp Hgb Conc 28.6 g/dL (32-36); Mean Corpuscular Hgb 28.9 pg (27.0-32.0); Mean Corpuscular Volume 101.1 fL (81-99); Mean Platelet Vol. 10.3 fl (6.2-12.0); Monocyte# 0.68 X10^3/uL; Monocyte% 8.4 % (0-10); NRBC Flagged by Analyzer 0 % (0-5); Neutrophil # 6.06 X10^3/uL (2.7-7.7); Neutrophil % 74.6 % (47-70); POSITIVE MORPHOLOGY YES; Platelet Count 166 K/mm3 (150-450); RBC Distribution Width CV 18.1 % (11.6-14.6); Red Blood Count 2.84 M/mm3 (4.2-5.4); White Blood Count 8.1 K/mm3 (4.4-11.0)
--- NOTE | 2022-04-26 10:40 | RAD_ITS ---
STUDY: X-RAY CHEST REASON FOR EXAM: Female, 67 years old. AMS TECHNIQUE: Single AP portable view of the chest. COMPARISON: Comparison is made with prior study dated 03/31/2022. FINDINGS: EKG electrodes are seen. Persistent infiltrate in the right middle lobe with loss of the cardiac border. Mild residual infiltrate in the lingular segment of the left upper lobe although this has improved. Blunting of both costophrenic angles slightly worse on the right side. There is borderline cardiomegaly. Normal mediastinum and sol. Normal visualized pulmonary arteries. Normal visualized aortic arch and descending thoracic aorta. There are diffuse degenerative changes of the visualized thoracic spine. 1.4 cm sclerotic focus in the surgical neck of the right humerus suggestive of possible chondroid matrix calcification. There is no demonstrated abnormality of the visualized soft tissue structures of the upper abdomen. RAD/Chest 1 View (Portable) IMPRESSION: Persistent right lower lobe infiltrate. Improved aeration at the left lung base. Blunting of both costophrenic angles. Electronically Signed: Butch Ling MD at 11:12 EST ,
[2022-04-26 10:41] LABS: Differential Indicated SCAN CRITERIA MET
[2022-04-26 10:51] LABS: Anion Gap 3 (5-15); BUN 47 mg/dL (7-18); BUN/Creat Ratio 26.3 RATIO (10-20); Calcium,Total 9.5 mg/dL (8.5-10.1); Chloride 108 mmol/L (98-107); Creatinine, Serum 1.79 mg/dL (0.55-1.02); EST Glomerular Filtration Rate 30 mL/min (>60); Est Glom Filt Rate - Afr Amer 36 mL/min (>60); Estimated Creatinine Clearance 27.82 ml/min; Glucose 190 mg/dL (74-106); Potassium 6.3 mmol/L (3.5-5.1); Sodium Level 139 mmol/L (136-145); Troponin-I HS 10 pg/mL (3.0-54.0)
[2022-04-26 11:18] LABS: Differential Comment SCANNED
[2022-04-26 11:19] LABS: Anisocytosis 2+; Macrocytosis 1+; Microcytosis 1+
--- NOTE | 2022-04-26 11:30 | EX.ED.DYSGE1 ---
HPI History of Present Illness Chief Complaint: Weakness Informant: patient Narrative Narrative: Patient is a 67-year-old female with extensive medical history including peripheral vascular disease, atrial fibrillation (on Eliquis) and chronic heart failure with preserved ejection fraction presenting with an unresponsive episode. Patient apparently had an unresponsive episode at her nursing facility this morning. She had a blood sugar check today and was above 100. She did eat breakfast. She was into the ER for further evaluation. Patient was actually seen in the ER yesterday for hypoglycemic episode. Patient has no complaints at this time. [facility] Medical History Acute cervical myofascial strain Acute on chronic respiratory failure with hypoxemia Acute respiratory failure with hypoxia Amputated toe of left foot Anemia Asthma Atherosclerotic heart disease of [place] coronary artery without angina pectoris Atrial fibrillation Atrial fibrillation with rapid ventricular response CAD (coronary artery disease) CHF (congestive heart failure) Chronic congestive heart failure Chronic heart failure with preserved ejection fraction (HFpEF) Chronic heel ulcer Chronic respiratory failure with hypoxia, on home oxygen therapy Chronic ulcer of great toe of left foot Closed head injury Congestive heart failure (CHF) COPD (chronic obstructive pulmonary disease) Current use of insulin Decubitus ulcer of dorsum of foot, stage 2 Decubitus ulcer of left heel, stage 2 Decubitus ulcer of left heel, stage 3 Decubitus ulcer, heel, left, unstageable Depression Diabetes mellitus with diabetic polyneuropathy Diabetes type 2, controlled Diabetic foot ulcers Diverticulitis Dry gangrene Essential hypertension Former smoker History of amputation of left great toe History of non-ST elevation myocardial infarction (NSTEMI) (02/24/17) Hyperlipidemia Hypothyroid Morbid obesity Multiple wounds Myocardial infarct Non-rheumatic tricuspid valve insufficiency Nondisplaced fracture of distal phalanx of right great toe, initial encounter for closed fracture Nonrheumatic mitral (valve) insufficiency Obesity Obstructive sleep apnea On home O2 Renal insufficiency Secondary pulmonary arterial hypertension Thrombocytopenia Type 2 diabetes mellitus Vitamin D deficiency Home Medications aspirin 81 mg tablet,delayed release (Adult Aspirin Regimen) 81 mg PO DAILY HEART HEALTH 05/17/21 [History Last Taken 04/25/22 08:30] metoprolol succinate 50 mg tablet,extended release 24 hr 50 mg PO DAILY BLOOD PRESSURE 11/08/21 [History Last Taken 04/26/22 08:30] levothyroxine 100 mcg tablet (Synthroid) 100 mcg PO DAILY THYROID 12/13/21 [History Last Taken 04/26/22 06:00] montelukast 10 mg tablet 10 mg PO QHS ALLERGIES 12/13/21 [History Last Taken 04/25/22 20:58] sennosides 8.6 mg-docusate sodium 50 mg tablet (Senna-S) 1 tab PO BID STOOL SOFTNER 12/13/21 [History Last Taken 04/25/22 20:58] trazodone 100 mg tablet 150 mg PO QHS SLEEP 12/13/21 [History Last Taken 04/25/22 20:58] albuterol sulfate 90 mcg/actuation aerosol inhaler 2 puff inhalation Q6H PRN Shortness Of Breath 12/19/21 [History Last Taken Unknown] ferrous sulfate 325 mg (65 mg iron) tablet (FeroSul) 325 mg PO DAILY ANEMIA 12/28/21 [History Last Taken 04/25/22 11:00] insulin lispro 100 unit/mL subcutaneous pen (Humalog KwikPen (U-100) Insulin) 10 unit subcut TIDAC DIABETES 12/28/21 [History Last Taken 04/25/22 20:40] nystatin 100,000 unit/gram topical powder (Nyamyc) 1 applic topical TID IRRITATION 12/28/21 [History Last Taken 04/25/22 20:58] omeprazole 40 mg capsule,delayed release 40 mg PO BID GERD 12/28/21 [History Last Taken 04/25/22 20:58] polyethylene glycol 3350 17 gram oral powder packet 17 g PO DAILY CONSTIPATION 12/28/21 [History Last Taken 04/25/22 08:30] paroxetine HCl 20 mg tablet (Paxil) 20 mg PO DAILY MOOD 01/12/22 [History Last Taken 04/26/22 08:30] insulin detemir U-100 100 unit/mL (3 mL) subcutaneous pen (Levemir FlexTouch U-100 Insulin) 25 unit (0.25 mL) subcut QHS blood sugar #15 mL 02/24/22 [Rx Last Taken 04/24/22 19:30] meloxicam 7.5 mg tablet 7.5 mg PO DAILY PAIN 03/31/22 [History Last Taken 04/26/22 08:30] acetaminophen 325 mg tablet (Tylenol) 650 mg PO Q6H PRN PAIN/FEVER 04/26/22 [History Last Taken 04/26/22 06:00] apixaban 5 mg tablet (Eliquis) 5 mg PO BID BLOOD THINNER 04/26/22 [History Last Taken 04/26/22 08:30] arginine 7 gram-glutam 7 gram-CaHMB 1.5 [id number] oral pwd pkt (Say (with collagen)) 1 packet PO BID WOUND HEALING 04/26/22 [History Last Taken 04/25/22 11:00] bumetanide 2 mg tablet 2 mg PO TID FLUID 04/26/22 [History Last Taken 04/26/22 06:00] gabapentin 300 mg capsule 300 mg PO TID NERVE PAIN 04/26/22 [History Last Taken 04/25/22 13:30] levothyroxine 25 mcg tablet 25 mcg PO DAILY THYROID 04/26/22 [History Last Taken 04/26/22 06:00] mirtazapine 15 mg tablet 15 mg PO QHS MOOD 04/26/22 [History Last Taken 04/25/22 20:58] potassium chloride 20 mEq tablet,extended release(part/cryst) (Klor-Con M) 20 meq PO DAILYCM SUPPLEMENT 04/26/22 [History Last Taken 04/26/22 06:00] Allergy/AdvReac Type Severity Reaction Status Date / Time doxycycline Allergy NEEDS Verified 04/25/22 15:40 FOLLOW-UP latex Allergy NEEDS Verified 04/25/22 15:40 FOLLOW-UP Sulfa (Sulfonamide Allergy Anaphylaxis Verified 04/25/22 15:40 Antibiotics) sulfur dioxide Allergy Anaphylaxis Verified 04/25/22 15:40 oxycodone AdvReac Other Verified 04/25/22 15:40 Family History Grandmother Diabetes Mother Heart disease Surgical History H/O right heart catheterization History of cataract surgery History of coronary artery stent placement (02/24/17) History of heart artery stent Tubal ligation status Social History household members: none housing: other details: [facility]. Smoking Status: Former smoker how long ago did patient quit smokin alcohol intake: former year quit: 1999 substance use type: does not use caffeine: Yes Type: carbonated beverages and tea ROS ROS ED Constitutional Constitutional ED: Denies chills or fever(s) Cardiovascular Cardiovascular: Denies chest pain Respiratory/Chest Respiratory/Chest: Denies cough or dyspnea Gastrointestinal Gastrointestinal: Denies nausea or vomiting Musculoskeletal Musculoskeletal: Reports other Details: left foot pain ; Denies arthralgias or myalgias Integumentary Reports other Details: left foot wound Neurologic Neurologic: Reports weakness Hematologic/Lymphatic Hematologic/Lymphatic: Reports easy bleeding and easy bruising EXAM Physical Exam Const Vital Signs: 04/26/22 09:05 04/26/22 09:08 04/26/22 09:08 Temperature 98.0 F 98 F Temperature Source Oral Oral Pulse Rate 129 H 131 H Respiratory Rate 19 H 23 H Respiratory Pattern Normal Blood Pressure 113/73 119/73 Blood Pressure Mean 86 88 Pulse Ox 100 99 Oxygen Delivery Method Nasal Cannula Room Air Oxygen Flow Rate (L/min) 4 04/26/22 09:40 04/26/22 09:44 04/26/22 09:47 Temperature Temperature Source Pulse Rate 123 H Respiratory Rate Respiratory Pattern Blood Pressure 116/84 H Blood Pressure Mean 94 Pulse Ox 97 82 97 Oxygen Delivery Method Nasal Cannula Room Air Nasal Cannula Oxygen Flow Rate (L/min) 2 3 04/26/22 10:29 04/26/22 10:36 04/26/22 11:32 Temperature Temperature Source Pulse Rate 125 H 117 H 114 H Respiratory Rate 18 Respiratory Pattern Blood Pressure 105/74 124/49 H 116/67 Blood Pressure Mean 84 74 83 Pulse Ox 100 Oxygen Delivery Method Nasal Cannula Oxygen Flow Rate (L/min) 3 04/26/22 11:50 Temperature 96.9 F L Temperature Source Temporal Pulse Rate 107 H Respiratory Rate 22 H Respiratory Pattern Blood Pressure 133/109 H Blood Pressure Mean 117 Pulse Ox 94 Oxygen Delivery Method Nasal Cannula Oxygen Flow Rate (L/min) 3.5 Positive well nourished and well developed Constitutional Narrative: Chronically ill-appearing, no acute distress General Appearance ED: well developed HEENT Reports dry mucous membranes Mouth ED: Yes dry mucous membranes Mouth: dry mucous membranes Eyes PERRL and EOMs intact bilaterally Neck supple and no JVD Chest Wall inspection of chest normal Resp normal respiratory effort and clear to auscultation bilaterally Cardio Rate: tachycardic Rhythm: abnormal rhythm irregularly irregular GI normal to inspection, nondistended, normoactive bowel sounds and non-tender Extremity Extremity Narrative: Dry gangrene of the left foot with prior amputation of the left great toe and what appears to be dry gangrene and ischemia of the second through fourth toes General Extremety ED: Negative for edema General Extremity: Negative for edema Neuro Neuro Narrative: Focal deficits, patient mildly confused Sensorium / Orientation: alert Motor Exam: general weakness Psych mental status grossly normal Skin Skin Narrative: Chronic wound of the left foot MDM MDM MDM Narrative Medical decision making narrative: Patient is evaluated for an episode of unresponsiveness, and hypotension at nursing [facility] this morning. She seems to return to her baseline upon arrival to the ER. Work-up for altered mental status is started. Does not have any focal neurologic deficits and I do not think CT of her brain is indicated. I am more concerned about encephalopathy. Patient was intermittently hypoxic in the ER on room air however on her baseline oxygen she is not. She does not have leukocytosis or fever in the ER. She is found to have hyperkalemia with a potassium of 6.3. This is elevated from yesterday. Patient's creatinine is at her baseline at 1.79 however she is a little dry. It was reported from her here her ER note yesterday that she has had minimal p.o. intake. Patient will be admitted for her hyperkalemia and for treatment of this. She is agreeable this plan of care. Case discussed with admitting physician, Dr. Corbin. She is agreeable this plan of care. Patient is given temporizing measures of calcium gluconate and insulin with dextrose in the emergency room. She was given some IV fluids as she clinically appears dehydrated and a dose of IV metoprolol for her atrial fibrillation with RVR in the ER. Chest x-ray does show a persistent right lower lobe infiltrate. This is from a month ago. Given that she does not have a leukocytosis, cough in the ER or new O2 demands would not treat at this time. History & Record Review Discussion w/independent historian: EMS personnel (Patient is found to be hypotensive for EMS and tachycardic with a temperature of 99.9. Was unresponsive but seem to come around more when they got there. Blood glucose was 244), Patient and Other (Nursing facility report-had an unresponsive episode this morning with normal blood sugar, low oxygen and low heart rate) Additional record(s) reviewed:: Prior outpatient record (Vascular surgery note-has peripheral arterial disease and is planned angiography for further evaluation of arterial disease due to dry gangrene of the left foot.) Lab Data Attestation: I reviewed the patient's lab results. Labs: Laboratory Results - last 24 hr 04/26/22 04/26/22 10:16 10:16 WBC 8.1 RBC 2.84 L Hgb 8.2 L Hct 28.7 L MCV 101.1 H MCH 28.9 MCHC 28.6 L RDW Std Deviation 67.0 H RDW Coeff of Magen 18.1 H Plt Count 166 MPV 10.3 Immature Gran % (Auto) 0.600 Neut % (Auto) 74.6 H Lymph % (Auto) 11.7 L [place] % (Auto) 8.4 Eos % (Auto) 4.2 Baso % (Auto) 0.5 Absolute Neuts (auto) 6.1 Absolute Lymphs (auto) 0.95 Nucleated RBC % 0 Differential Comment SCANNED Anisocytosis 2+ Microcytosis 1+ Macrocytosis 1+ Sodium 139 Potassium 6.3 H* Chloride 108 H Carbon Dioxide 28.0 Anion Gap 3 L BUN 47 H Creatinine 1.79 H Estim Creat Clear Calc 27.82 Est GFR (MDRD) Af Amer 36 L Est GFR (MDRD) Non-Af 30 L BUN/Creatinine Ratio 26.3 H Glucose 190 H Calcium 9.5 Troponin I High Sens 10 Radiography Diagnostic Testing: Clinical Impression(s) from Imaging Studies Chest X-Ray 04/26/22 10:40 IMPRESSION: Persistent right lower lobe infiltrate. Improved aeration at the left lung base. Blunting of both costophrenic angles. Electronically Signed: Butch Ling MD at 11:12 EST , Rhythm Strip Rhythm Strip: A-fib Rate: 123 Ectopy: None EKG Initial EKG: Attestation: I personally reviewed and interpreted this EKG as follows: Interpretation: Atrial Fibrillation Comments: Atrial fibrillation with rapid ventricular response at a rate of 123 bpm Right axis deviation Possible right ventricular hypertrophy Normal ST segments Management Discussion w/another healthcare provider: Hospitalist (Will admit patient and start Kayexalate for hyperkalemia treatment) Discharge Plan Dx/Rx/DC Orders Clinical Impression: Acute hyperkalemia, Chronic respiratory failure with hypoxia, Debility, Anemia, Atrial fibrillation, Chronic kidney disease (CKD) stage G3b/A1, moderately decreased glomerular filtration rate (GFR) between 30-44 mL/min/1.73 square meter and albuminuria creatinine ratio less than 30 mg/g Disposition Disposition: Acute Care Hospital [facility] Discharge Date/Time: 04/26/22 12:13
--- NOTE | 2022-04-26 11:34 | NURSING ---
PCU OBS TERELETSKY HYPERKALEMIA
[2022-04-26] MEDS: Calcium Gluconate IV 3 GM in Syringe 1 EACH IV (11:54)
[2022-04-26] MEDS: Insulin Lispro 10 UNIT in Syringe 0 ML 6 UNIT IV (12:00)
[2022-04-26] MEDS: 0.9% Normal Saline 1,000 ML 999 ML IV (12:00)
[2022-04-26] MEDS: Dextrose 50%-Water 25 GM/50 ML DISP.SYRIN IV (12:03)
[2022-04-26] MEDS: Nystatin Powder 15gm Bottle 1 APPLIC TOPICAL (15:01)
[2022-04-26] MEDS: Sodium Polystyrene Sulfonate 15 GM/60 ML UDC 30 GM PO (15:01)
[2022-04-26] MEDS: Menthol/Lanolin/Calamine/Znox 113 GM Tube 1 APPLIC TOPICAL ×2 (15:03→23:09)
[2022-04-26] MEDS: Gabapentin 300 MG Capsule PO (15:04)
--- NOTE | 2022-04-26 15:13 | CASEMGMT ---
Patient has a Healthcare Power of Vector Control Assistant and a Healthcare Living Will on file at [facility]. Patient's son Chava is her Healthcare Power of Vector Control Assistant. Clare Kaufman MSW BROWN
[2022-04-26 17:06] LABS: Bedside Glucose 140 mg/dL (74-106)
--- NOTE | 2022-04-26 17:53 | PCM.HP.STD ---
HPI - General General Date of Admission: 04/26/22 Date of Service: 04/26/22 Chief Complaint: Lysed weakness, low pulse ox HPI Narrative SONA WILSON, is a 67 F who presents to the emergency room at [facility] after being sent in from a local extended care facility at which she resides due to increased weakness and low pulse ox. Patient has many chronic medical problems including peripheral vascular disease with gangrene of her left foot, chronic kidney disease, chronic atrial fibrillation, COPD, and type 2 diabetes. Examination the patient reveals her to be tachycardic with a pulse rate of approximately 130, patient's pulse ox was 100% on 4 L, patient exhibited mild confusion, she was alert, she appeared overall unwell and frail. Labs was obtained on the patient, it revealed a potassium of 6.3, creatinine was 1.79, BUN was 47. Patient's glucose was 190, patient's CBC was remarkable for hemoglobin of 8.2. Chest x-ray revealed a persistent right lower lobe infiltrate with improved aeration at the left lung base. Rhythm strip revealed A-fib with a rate of 123. Patient was given calcium gluconate and insulin with dextrose in the emergency room, she was given some IV fluids in the emergency room due to the appearance of clinical dehydration, she was given 1 dose of IV metoprolol for atrial fibrillation. Patient was not felt to have a pneumonia. Patient was admitted to PCU for hyperkalemia, atrial fibrillation with RVR, and dehydration. [facility] Medical History (Updated 04/26/22 @ 18:[address] Christophe Corbin, DO) Acute cervical myofascial strain Acute on chronic respiratory failure with hypoxemia Acute respiratory failure with hypoxia Amputated toe of left foot Anemia Asthma Atherosclerotic heart disease of [place] coronary artery without angina pectoris Atrial fibrillation Atrial fibrillation with rapid ventricular response CAD (coronary artery disease) CHF (congestive heart failure) Chronic congestive heart failure Chronic heart failure with preserved ejection fraction (HFpEF) Chronic heel ulcer Chronic respiratory failure with hypoxia, on home oxygen therapy Chronic ulcer of great toe of left foot Closed head injury Congestive heart failure (CHF) COPD (chronic obstructive pulmonary disease) Current use of insulin Decubitus ulcer of dorsum of foot, stage 2 Decubitus ulcer of left heel, stage 2 Decubitus ulcer of left heel, stage 3 Decubitus ulcer, heel, left, unstageable Depression Diabetes mellitus with diabetic polyneuropathy Diabetes type 2, controlled Diabetic foot ulcers Diverticulitis Dry gangrene Essential hypertension Former smoker History of amputation of left great toe History of non-ST elevation myocardial infarction (NSTEMI) (02/24/17) Hyperlipidemia Hypoglycemia due to type 1 diabetes mellitus Hypothyroid Morbid obesity Multiple wounds Myocardial infarct Non-rheumatic tricuspid valve insufficiency Nondisplaced fracture of distal phalanx of right great toe, initial encounter for closed fracture Nonrheumatic mitral (valve) insufficiency Obesity Obstructive sleep apnea On home O2 Renal insufficiency Secondary pulmonary arterial hypertension Thrombocytopenia Type 2 diabetes mellitus Vitamin D deficiency Home Medications aspirin 81 mg tablet,delayed release (Adult Aspirin Regimen) 81 mg PO DAILY HEART HEALTH 05/17/21 [History Last Taken 04/25/22 08:30] metoprolol succinate 50 mg tablet,extended release 24 hr 50 mg PO DAILY BLOOD PRESSURE 11/08/21 [History Last Taken 04/26/22 08:30] levothyroxine 100 mcg tablet (Synthroid) 100 mcg PO DAILY THYROID 12/13/21 [History Last Taken 04/26/22 06:00] montelukast 10 mg tablet 10 mg PO QHS ALLERGIES 12/13/21 [History Last Taken 04/25/22 20:58] sennosides 8.6 mg-docusate sodium 50 mg tablet (Senna-S) 1 tab PO BID STOOL SOFTNER 12/13/21 [History Last Taken 04/25/22 20:58] trazodone 100 mg tablet 150 mg PO QHS SLEEP 12/13/21 [History Last Taken 04/25/22 20:58] albuterol sulfate 90 mcg/actuation aerosol inhaler 2 puff inhalation Q6H PRN Shortness Of Breath 12/19/21 [History Last Taken Unknown] ferrous sulfate 325 mg (65 mg iron) tablet (FeroSul) 325 mg PO DAILY ANEMIA 12/28/21 [History Last Taken 04/25/22 11:00] insulin lispro 100 unit/mL subcutaneous pen (Humalog KwikPen (U-100) Insulin) 10 unit subcut TIDAC DIABETES 12/28/21 [History Last Taken 04/25/22 20:40] nystatin 100,000 unit/gram topical powder (Nyamyc) 1 applic topical TID IRRITATION 12/28/21 [History Last Taken 04/25/22 20:58] omeprazole 40 mg capsule,delayed release 40 mg PO BID GERD 12/28/21 [History Last Taken 04/25/22 20:58] polyethylene glycol 3350 17 gram oral powder packet 17 g PO DAILY CONSTIPATION 12/28/21 [History Last Taken 04/25/22 08:30] paroxetine HCl 20 mg tablet (Paxil) 20 mg PO DAILY MOOD 01/12/22 [History Last Taken 04/26/22 08:30] insulin detemir U-100 100 unit/mL (3 mL) subcutaneous pen (Levemir FlexTouch U-100 Insulin) 25 unit (0.25 mL) subcut QHS blood sugar #15 mL 02/24/22 [Rx Last Taken 04/24/22 19:30] meloxicam 7.5 mg tablet 7.5 mg PO DAILY PAIN 03/31/22 [History Last Taken 04/26/22 08:30] acetaminophen 325 mg tablet (Tylenol) 650 mg PO Q6H PRN PAIN/FEVER 04/26/22 [History Last Taken 04/26/22 06:00] apixaban 5 mg tablet (Eliquis) 5 mg PO BID BLOOD THINNER 04/26/22 [History Last Taken 04/26/22 08:30] arginine 7 gram-glutam 7 gram-CaHMB 1.5 [id number]-[id number]-min oral pwd pkt (Say (with collagen)) 1 packet PO BID WOUND HEALING 04/26/22 [History Last Taken 04/25/22 11:00] bumetanide 2 mg tablet 2 mg PO TID FLUID 04/26/22 [History Last Taken 04/26/22 06:00] gabapentin 300 mg capsule 300 mg PO TID NERVE PAIN 04/26/22 [History Last Taken 04/25/22 13:30] levothyroxine 25 mcg tablet 25 mcg PO DAILY THYROID 04/26/22 [History Last Taken 04/26/22 06:00] mirtazapine 15 mg tablet 15 mg PO QHS MOOD 04/26/22 [History Last Taken 04/25/22 20:58] potassium chloride 20 mEq tablet,extended release(part/cryst) (Klor-Con M) 20 meq PO DAILYCM SUPPLEMENT 04/26/22 [History Last Taken 04/26/22 06:00] Allergy/AdvReac Type Severity Reaction Status Date / Time doxycycline Allergy NEEDS Verified 04/25/22 15:40 FOLLOW-UP latex Allergy NEEDS Verified 04/25/22 15:40 FOLLOW-UP Sulfa (Sulfonamide Allergy Anaphylaxis Verified 04/25/22 15:40 Antibiotics) sulfur dioxide Allergy Anaphylaxis Verified 04/25/22 15:40 oxycodone AdvReac Other Verified 04/25/22 15:40 Family History Grandmother Diabetes Mother Heart disease Surgical History H/O right heart catheterization History of cataract surgery History of coronary artery stent placement (02/24/17) History of heart artery stent Tubal ligation status Social History household members: none housing: other details: [facility] [place]. Smoking Status: Former smoker how long ago did patient quit smokin alcohol intake: former year quit: 1999 substance use type: does not use caffeine: Yes Type: carbonated beverages and tea ROS ROS Narrative Review of systems was unreliable at this time due to patient's lethargy and somnolence, she did follow some commands but overall appears weak and frail. Vital Signs Vital Signs Vital Signs: 04/26/22 09:05 04/26/22 09:08 04/26/22 09:08 Temperature 98.0 F 98 F Temperature Source Oral Oral Pulse Rate 129 H 131 H Respiratory Rate 19 H 23 H Respiratory Effort Respiratory Depth Respiratory Pattern Normal Blood Pressure 113/73 119/73 Blood Pressure Mean 86 88 Blood Pressure Source Blood Pressure Position Blood Pressure Location Pulse Ox 100 99 Oxygen Delivery Method Nasal Cannula Room Air Oxygen Flow Rate (L/min) 4 04/26/22 09:40 04/26/22 09:44 04/26/22 09:47 Temperature Temperature Source Pulse Rate 123 H Respiratory Rate Respiratory Effort Respiratory Depth Respiratory Pattern Blood Pressure 116/84 H Blood Pressure Mean 94 Blood Pressure Source Blood Pressure Position Blood Pressure Location Pulse Ox 97 82 97 Oxygen Delivery Method Nasal Cannula Room Air Nasal Cannula Oxygen Flow Rate (L/min) 2 3 04/26/22 10:29 04/26/22 10:36 04/26/22 11:32 Temperature Temperature Source Pulse Rate 125 H 117 H 114 H Respiratory Rate 18 Respiratory Effort Respiratory Depth Respiratory Pattern Blood Pressure 105/74 124/49 H 116/67 Blood Pressure Mean 84 74 83 Blood Pressure Source Blood Pressure Position Blood Pressure Location Pulse Ox 100 Oxygen Delivery Method Nasal Cannula Oxygen Flow Rate (L/min) 3 04/26/22 11:50 04/26/22 13:02 04/26/22 13:00 Temperature 96.9 F L 98.0 F 98.0 F Temperature Source Temporal Oral Oral Pulse Rate 107 H 115 H 115 H Respiratory Rate 22 H 18 18 Respiratory Effort Respiratory Depth Respiratory Pattern Blood Pressure 133/109 H 109/92 H 109/92 H Blood Pressure Mean 117 97 98 Blood Pressure Source Monitor Blood Pressure Position Semi-Fowlers Blood Pressure Location Right Forearm Pulse Ox 94 100 100 Oxygen Delivery Method Nasal Cannula Nasal Cannula Nasal Cannula Oxygen Flow Rate (L/min) 3.5 2 3 04/26/22 14:00 04/26/22 14:57 04/26/22 16:50 Temperature 97.8 F Temperature Source Axillary Pulse Rate 105 H Respiratory Rate 18 Respiratory Effort Normal Non-Labored Normal Non-Labored Respiratory Depth Normal Normal Respiratory Pattern Normal Normal Blood Pressure 100/80 Blood Pressure Mean 89 Blood Pressure Source Monitor Blood Pressure Position Semi-Fowlers Blood Pressure Location Right Arm Pulse Ox 98 Oxygen Delivery Method Nasal Cannula Nasal Cannula Nasal Cannula Oxygen Flow Rate (L/min) 3 3 3 Weight Weight: 83.7 kg Body Mass Index (BMI) 30.7 Physical Exam Const Constitutional Narrative: Patient is somnolent, she does respond to verbal stimulation and answer some simple questions. Patient appears unwell and frail. General Appearance: cooperative Orientation / Consciousness: lethargic HEENT normocephalic and head/scalp atraumatic HEENT Narrative: Mucous membranes are dry, no oral lesions were noted. Eyes PERRL, EOMs intact bilaterally and conjunctivae normal Neck supple, no JVD and thyroid normal General: trachea midline Resp normal respiratory effort, no retractions, no use of accessory muscles and clear to auscultation bilaterally Auscultation: Negative for rales, rhonchi or wheezes Cardio S1 normal heart sound, S2 normal heart sound, no murmurs, no rub and no gallops Cardio Narrative: Heart rate and rhythm is irregular GI normal to inspection, nondistended, normoactive bowel sounds, soft to palpation, non-tender and non-distended Extremity Extremity Narrative: His left foot is wrapped with surgical dressing, this was not unwrapped to examine the patient's left foot Neuro CN's II-XII intact bilaterally, no focal motor deficits and no sensory deficits noted Sensorium / Orientation: awake and oriented to person Psych Psych Narrative: Patient is lethargic, she does follow some simple commands, she is a poor informant. Results Lab / Micro Data Result Diagrams: 04/26/22 10:16 04/26/22 10:16 Labs: Laboratory Results - last 24 hr 04/26/22 10:16: WBC 8.1, RBC 2.84 L, Hgb 8.2 L, Hct 28.7 L, MCV 101.1 H, MCH 28.9, MCHC 28.6 L, RDW Std Deviation 67.0 H, RDW Coeff of Magen 18.1 H, Plt Count 166, MPV 10.3, Immature Gran % (Auto) 0.600, Neut % (Auto) 74.6 H, Lymph % (Auto) 11.7 L, White % (Auto) 8.4, Eos % (Auto) 4.2, Baso % (Auto) 0.5, Absolute Neuts (auto) 6.1, Absolute Lymphs (auto) 0.95, Nucleated RBC % 0, Differential Comment SCANNED, Anisocytosis 2+, Microcytosis 1+, Macrocytosis 1+ 04/26/22 10:16: Sodium 139, Potassium 6.3 H*, Chloride 108 H, Carbon Dioxide 28.0, Anion Gap 3 L, BUN 47 H, Creatinine 1.79 H, Estim Creat Clear Calc 27.82, Est GFR (MDRD) Af Amer 36 L, Est GFR (MDRD) Non-Af 30 L, BUN/Creatinine Ratio 26.3 H, Glucose 190 H, Calcium 9.5, Troponin I High Sens 10 04/26/22 16:44: POC Glucose 140 H Rhythm Strip Rhythm Strip: A-fib Rate: 123 Ectopy: None Radiology Impression Chest X-Ray 04/26/22 10:40 IMPRESSION: Persistent right lower lobe infiltrate. Improved aeration at the left lung base. Blunting of both costophrenic angles. Electronically Signed: Butch Ling MD at 11:12 EST , Assessment & Plan Assessment/Plan (1) Atrial fibrillation and flutter: PLAN: Plan 1. Hyperkalemia-patient is on potassium supplementation at the [facility], this will be stopped, patient was admitted to PCU, she was given Kayexalate, BMP will be rechecked. #2 chronic atrial fibrillation with RVR-patient's heart rate at this time is controlled on her present medications, continue present medications #3 type 2 diabetes-blood sugars will be monitored via fingerstick blood sugars, sliding scale insulin will be given #4 chronic kidney disease stage IIIb-secondary to type 2 diabetes, labs will be monitored #5 clinical dehydration, I will give patient IV fluids overnight, Bumex will be held #6 encephalopathy secondary to dehydration and multiple medical issues, complicates care, medical course, recovery, and prognosis #7 hypercoagulable state secondary to chronic atrial fibrillation-patient is on Eliquis. #8 dry gangrene of the left foot-patient was seen by wound care tomorrow, patient will need this addressed in the near future by podiatry #9 hypothyroidism-patient is on Synthroid Total clinical time spent by myself addressing the patient's medical issues, reviewing all of the data, and collaborating with patient's care team: 75 minutes Charges/Coding Visit Charges Inpatient E&M: 18858 Init Hosp L3
[2022-04-26] MEDS: 0.9% Normal Saline 1,000 ML 75 ML IV (18:36)
[2022-04-26 22:55] LABS: Bedside Glucose 129 mg/dL (74-106)
[2022-04-27] VITALS (11 sets, daily range): BP systolic 111–113; BP diastolic 59–98; PULSE 105–117; RESP 16–18; TEMP 36.5–37.1; O2SAT 89–98
[2022-04-27] MEDS: Acetaminophen 325 MG Tablet 650 MG PO ×2 (01:45→16:44)
[2022-04-27] MEDS: 0.9% Normal Saline 1,000 ML 75 ML IV (05:02)
[2022-04-27] MEDS: Menthol/Lanolin/Calamine/Znox 113 GM Tube 1 APPLIC TOPICAL ×3 (05:03→21:16)
[2022-04-27] MEDS: Nystatin Powder 15gm Bottle 1 APPLIC TOPICAL ×3 (05:03→21:16)
[2022-04-27] MEDS: Gabapentin 300 MG Capsule PO ×3 (05:04→21:15)
[2022-04-27] MEDS: Levothyroxine 100 MCG Tablet PO (05:04)
[2022-04-27] MEDS: Levothyroxine 25 MCG TABLET PO (05:05)
[2022-04-27 05:40] LABS: Hematocrit 25.3 % (37-47)
[2022-04-27 06:51] LABS: Anion Gap 4 (5-15); BUN 42 mg/dL (7-18); BUN/Creat Ratio 27.3 RATIO (10-20); Calcium,Total 9.4 mg/dL (8.5-10.1); Chloride 107 mmol/L (98-107); Creatinine, Serum 1.54 mg/dL (0.55-1.02); EST Glomerular Filtration Rate 36 mL/min (>60); Est Glom Filt Rate - Afr Amer 43 mL/min (>60); Estimated Creatinine Clearance 31.03 ml/min; Glucose 170 mg/dL (74-106); Iron 24 ug/dL (50-170); Iron Binding Capacity,Total 206 ug/dL (250-450); PERCENT IRON SATURATION 11.7 % (15.0-55.0); Sodium Level 139 mmol/L (136-145)
[2022-04-27 08:05] LABS: Bedside Glucose 160 mg/dL (74-106)
[2022-04-27] MEDS: Pantoprazole Sodium 40 MG Tablet PO ×2 (09:44→21:15)
[2022-04-27] MEDS: Metoprolol(XL)Succ 50 MG Tablet PO ×2 (09:44→21:13)
[2022-04-27] MEDS: Ferrous Sulfate 325 MG Tablet PO (09:44)
[2022-04-27] MEDS: Paroxetine 20 MG Tablet PO (09:45)
[2022-04-27] MEDS: Aspirin E.C. 81 MG Tablet PO (09:45)
[2022-04-27] MEDS: APIXABAN 5 MG TABLET PO ×2 (09:45→21:16)
--- NOTE | 2022-04-27 09:47 | CASEMGMT ---
SW went to patient's room to ask if her plan is to return to [place] at d/c. (Per RN from yesterday patient said she did not want to return, but patient was also confused.) Patient did not wake up. GREG called patient's son, Aydin as he is patient's Healthcare POA and left him a voice mail asking to return SW's call. Clare Kaufman MANAGER PRIVACYCholo DASILVA
[2022-04-27] MEDS: Insulin Lispro 100 UNIT/ML INSULN.PEN SC (09:52)
[2022-04-27 12:31] LABS: Bedside Glucose 144 mg/dL (74-106)
--- NOTE | 2022-04-27 13:51 | CASEMGMT ---
SW went to patient's room again and she would not wake up for SW. Clare Kaufman [employer] INSTRUCTOR BROWN
--- NOTE | 2022-04-27 14:22 | CHAPLAIN ---
Type of Pastoral Visit _x__ Initial Visit ___ Follow-up Visit ___ On-call Visit ___ General Patient Visit ___ Spiritual Assessment ___ Family Conference ___ Bereavement ___ Rapid Response ___ Code Blue ___ Other (describe below) Pastoral Care Referral From _x__ Patient ___ Family ___ Nurse ___ Physician ___ Electrical Inspector ___ Book Author ___ Other (describe below) Sacrament/Intervention ___ Active listening ___ Anointing ___ Sikhism ___ Bereavement ___ Communion ___ Charo exploration ___ ___ Life review _x__ Prayer ___ Reconciliation ___ Sacrament of Sick __x_ Supportive presence ___ Wedding ___ Other (describe below) Pastoral Comments patient is sleeping but opens eyes and says yes when her name is called; pt is offered support and prayer; pt only answers that pray is okay'; pt responds that she does not want to eat when asked about her full lunch tray at bedside; pt reminded that support is available later is she so chooses;
--- NOTE | 2022-04-27 14:43 | CASEMGMT ---
SW attempted to call patient's son again and there was no answer. Clare Kaufman EMAIL MARKETING EXECUTIVECholo DASILVA
--- NOTE | 2022-04-27 15:08 | CON.PCM.SX_ITS ---
Assessment & Plan Assessment/Plan (1) Dry gangrene: PLAN: -dry gangrene left foot, no revascularization options -is agreeable to left AKA (poor candidate for BKA given debility and ambulation status) -tentative for Sunday if OR time available and if medically optimized -will attempt to meet with family as well to make sure they are also agreeable given her variable and altered mental status HPI Consult Data Date of Consult: 04/27/22 HPI Narrative HPI Narrative: SONA WILSON, is a 67 F who presents with metabolic derangements, hyperkalemia, dehydration, altered mental status. She has dry gangrene of the left foot and recent angio revealed severe pedal/digit level disease with no options for revascularization either open or endovascular. She was scheduled for clinic today where discussion regarding proximal amputation was planned. She has improved mental status some today, at least awakens to verbal and answers some questions appropriately. She states she is agreeable to left above knee amputation, and would prefer during this admission once medically fit. [facility] Medical History Acute cervical myofascial strain Acute on chronic respiratory failure with hypoxemia Acute respiratory failure with hypoxia Amputated toe of left foot Anemia Asthma Atherosclerotic heart disease of [place] coronary artery without angina pectoris Atrial fibrillation Atrial fibrillation with rapid ventricular response CAD (coronary artery disease) CHF (congestive heart failure) Chronic congestive heart failure Chronic heart failure with preserved ejection fraction (HFpEF) Chronic heel ulcer Chronic respiratory failure with hypoxia, on home oxygen therapy Chronic ulcer of great toe of left foot Closed head injury Congestive heart failure (CHF) COPD (chronic obstructive pulmonary disease) Current use of insulin Decubitus ulcer of dorsum of foot, stage 2 Decubitus ulcer of left heel, stage 2 Decubitus ulcer of left heel, stage 3 Decubitus ulcer, heel, left, unstageable Depression Diabetes mellitus with diabetic polyneuropathy Diabetes type 2, controlled Diabetic foot ulcers Diverticulitis Dry gangrene Essential hypertension Former smoker History of amputation of left great toe History of non-ST elevation myocardial infarction (NSTEMI) (02/24/17) Hyperlipidemia Hypoglycemia due to type 1 diabetes mellitus Hypothyroid Morbid obesity Multiple wounds Myocardial infarct Non-rheumatic tricuspid valve insufficiency Nondisplaced fracture of distal phalanx of right great toe, initial encounter for closed fracture Nonrheumatic mitral (valve) insufficiency Obesity Obstructive sleep apnea On home O2 Renal insufficiency Secondary pulmonary arterial hypertension Thrombocytopenia Type 2 diabetes mellitus Vitamin D deficiency Home Medications aspirin 81 mg tablet,delayed release (Adult Aspirin Regimen) 81 mg PO DAILY HEART HEALTH 05/17/21 [History Last Taken 04/25/22 08:30] metoprolol succinate 50 mg tablet,extended release 24 hr 50 mg PO DAILY BLOOD PRESSURE 11/08/21 [History Last Taken 04/26/22 08:30] levothyroxine 100 mcg tablet (Synthroid) 100 mcg PO DAILY THYROID 12/13/21 [History Last Taken 04/26/22 06:00] montelukast 10 mg tablet 10 mg PO QHS ALLERGIES 12/13/21 [History Last Taken 04/25/22 20:58] sennosides 8.6 mg-docusate sodium 50 mg tablet (Senna-S) 1 tab PO BID STOOL SOFTNER 12/13/21 [History Last Taken 04/25/22 20:58] trazodone 100 mg tablet 150 mg PO QHS SLEEP 12/13/21 [History Last Taken 04/25/22 20:58] albuterol sulfate 90 mcg/actuation aerosol inhaler 2 puff inhalation Q6H PRN Shortness Of Breath 12/19/21 [History Last Taken Unknown] ferrous sulfate 325 mg (65 mg iron) tablet (FeroSul) 325 mg PO DAILY ANEMIA 12/28/21 [History Last Taken 04/25/22 11:00] insulin lispro 100 unit/mL subcutaneous pen (Humalog KwikPen (U-100) Insulin) 10 unit subcut TIDAC DIABETES 12/28/21 [History Last Taken 04/25/22 20:40] nystatin 100,000 unit/gram topical powder (Nyamyc) 1 applic topical TID IRRITATION 12/28/21 [History Last Taken 04/25/22 20:58] omeprazole 40 mg capsule,delayed release 40 mg PO BID GERD 12/28/21 [History Last Taken 04/25/22 20:58] polyethylene glycol 3350 17 gram oral powder packet 17 g PO DAILY CONSTIPATION 12/28/21 [History Last Taken 04/25/22 08:30] paroxetine HCl 20 mg tablet (Paxil) 20 mg PO DAILY MOOD 01/12/22 [History Last Taken 04/26/22 08:30] insulin detemir U-100 100 unit/mL (3 mL) subcutaneous pen (Levemir FlexTouch U- 100 Insulin) 25 unit (0.25 mL) subcut QHS blood sugar #15 mL 02/24/22 [Rx Last Taken 04/24/22 19:30] meloxicam 7.5 mg tablet 7.5 mg PO DAILY PAIN 03/31/22 [History Last Taken 04/26/22 08:30] acetaminophen 325 mg tablet (Tylenol) 650 mg PO Q6H PRN PAIN/FEVER 04/26/22 [History Last Taken 04/26/22 06:00] apixaban 5 mg tablet (Eliquis) 5 mg PO BID BLOOD THINNER 04/26/22 [History Last Taken 04/26/22 08:30] arginine 7 gram-glutam 7 gram-CaHMB 1.5 [id number]-db-min oral pwd pkt (Say (with collagen)) 1 packet PO BID WOUND HEALING 04/26/22 [History Last Taken 04/25/22 11:00] bumetanide 2 mg tablet 2 mg PO TID FLUID 04/26/22 [History Last Taken 04/26/22 06:00] gabapentin 300 mg capsule 300 mg PO TID NERVE PAIN 04/26/22 [History Last Taken 04/25/22 13:30] levothyroxine 25 mcg tablet 25 mcg PO DAILY THYROID 04/26/22 [History Last Taken 04/26/22 06:00] mirtazapine 15 mg tablet 15 mg PO QHS MOOD 04/26/22 [History Last Taken 04/25/22 20:58] potassium chloride 20 mEq tablet,extended release(part/cryst) (Klor-Con M) 20 meq PO DAILYCM SUPPLEMENT 04/26/22 [History Last Taken 04/26/22 06:00] Allergy/AdvReac Type Severity Reaction Status Date / Time doxycycline Allergy NEEDS Verified 04/25/22 15:40 FOLLOW-UP latex Allergy NEEDS Verified 04/25/22 15:40 FOLLOW-UP Sulfa (Sulfonamide Allergy Anaphylaxis Verified 04/25/22 15:40 Antibiotics) sulfur dioxide Allergy Anaphylaxis Verified 04/25/22 15:40 oxycodone AdvReac Other Verified 04/25/22 15:40 Family History Grandmother Diabetes Mother Heart disease Surgical History H/O right heart catheterization History of cataract surgery History of coronary artery stent placement (02/24/17) History of heart artery stent Tubal ligation status Social History household members: none housing: other details: [facility]. Smoking Status: Former smoker how long ago did patient quit smokin alcohol intake: former year quit: 1999 substance use type: does not use caffeine: Yes Type: carbonated beverages and tea ROS Review of Systems ROS Unobtainable: due to mental status Physical Exam Const alert and no apparent distress General Appearance: cooperative and ill appearing Positive for acutely and chronically; Negative for combative or lethargic Orientation / Consciousness: awake Exam Limitations: no limitations HEENT Head and Scalp: normocephalic and atraumatic Eyes EOMs intact bilaterally General Eye: normal appearance of both eyes Neck full ROM General: trachea midline Resp normal respiratory effort and no use of accessory muscles Effort and Inspection: Negative for labored, stridor or audible wheezes Cardio Rate: tachycardic Rhythm: abnormal rhythm Back/Spine Cervical Spine: cervical ROM normal Skin no rashes or lesions noted Skin Narrative: bilateral foot wounds with dressings intact Neuro CN's II-XII intact bilaterally, no focal motor deficits and no sensory deficits noted Psych cooperative, affect normal, speech normal and activity/motor behavior normal Lab / Micro Data Result Diagrams: 04/27/22 05:05 04/27/22 05:05 Labs: Laboratory Results - last 24 hr 04/26/22 16:44: POC Glucose 140 H 04/26/22 21:50: POC Glucose 129 H 04/27/22 05:05: Sodium 139, Potassium 5.0, Chloride 107, Carbon Dioxide 28.0, Anion Gap 4 L, BUN 42 H, Creatinine 1.54 H, Estim Creat Clear Calc 31.03, Est GFR (MDRD) Af Amer 43 L, Est GFR (MDRD) Non-Af 36 L, BUN/Creatinine Ratio 27.3 H , Glucose 170 H, Calcium 9.4, Iron 24 L, TIBC 206 L, Iron Saturation 11.7 L 03/02/23 05:05: Hgb 7.0 L, Hct 25.3 L 04/27/22 07:32: POC Glucose 160 H 04/27/22 11:57: POC Glucose 144 H Rhythm Strip Rhythm Strip: A-fib Rate: 123 Ectopy: None Charges/Coding Visit Charges Inpatient E&M: 74666 Init Hosp L2
--- NOTE | 2022-04-27 15:41 | WOUNDNOTE ---
wound photo: left foot
--- NOTE | 2022-04-27 15:41 | WOUNDNOTE ---
wound photo: left foot
--- NOTE | 2022-04-27 15:42 | WOUNDNOTE ---
wound photo: left heel
--- NOTE | 2022-04-27 15:43 | WOUNDNOTE ---
wound photo: right heel
[2022-04-27] MEDS: 0.9% Normal Saline 1,000 ML 125 ML IV (16:43)
[2022-04-27 17:15] LABS: Bedside Glucose 125 mg/dL (74-106)
[2022-04-27] MEDS: Insulin Lispro 100 UNIT/ML INSULN.PEN 10 UNIT SC (18:04)
--- NOTE | 2022-04-27 19:10 | PN.HOSP_ITS ---
Reason for Visit Reason for Visit: Diagnoses Unspecified atrial fibrillation (04/26/22) Unspecified atrial flutter (04/26/22) Gangrene, not elsewhere classified (04/26/22) Subjective Subjective Patient was seen and examined today, she remained somnolent and lethargic during the time my examination earlier in the morning. I decided to increase patient's fluids and continue to hold her diuretics. I talked with vascular surgery due to severe gangrenous changes of her left foot, vascular surgery recommended an [id number] amputation and discussed that with the patient, she did not object to this. It is planned that the surgery will be performed early next week. Objective Data Objective Data Vital Signs: Vital Signs Temp Pulse Resp BP Pulse Ox O2 Del Method O2 Flow Rate 97.7 F L 112 H 18 113/69 98 Nasal Cannula 2 04/27/22 16:50 04/27/22 16:50 04/27/22 16:50 04/27/22 16:50 04/27/22 16:50 04/27/22 16:50 04/27/22 16:50 Oxygen Flow Rate (L/min) 2 Oxygen Delivery Method Nasal Cannula Weight: 83.7 kg Body Mass Index (BMI) 30.7 Intake & Output: Intake and Output for Last 24 Hours 04/25/22 04/26/22 04/27/22 23:59 23:59 23:59 Intake Total 1430 / 1430 1962.5 / 1962.5 Balance 1430 / 1430 1962.5 / 1962.5 Lab / Micro Data Result Diagrams: 04/27/22 05:05 04/27/22 05:05 Labs: Laboratory Results - last 24 hr 04/26/22 21:50: POC Glucose 129 H 04/27/22 05:05: Sodium 139, Potassium 5.0, Chloride 107, Carbon Dioxide 28.0, Anion Gap 4 L, BUN 42 H, Creatinine 1.54 H, Estim Creat Clear Calc 31.03, Est GFR (MDRD) Af Amer 43 L, Est GFR (MDRD) Non-Af 36 L, BUN/Creatinine Ratio 27.3 H , Glucose 170 H, Calcium 9.4, Iron 24 L, TIBC 206 L, Iron Saturation 11.7 L 04/27/22 05:05: Hgb 7.0 L, Hct 25.3 L 04/27/22 07:32: POC Glucose 160 H 04/27/22 11:57: POC Glucose 144 H 04/27/22 16:40: POC Glucose 125 H Rhythm Strip Rhythm Strip: A-fib Rate: 123 Ectopy: None Physical Exam Const Constitutional Narrative: Patient is somnolent and lethargic, she responds to deep painful stimulation at the time my exam, she is not able to carry on a conversation Orientation / Consciousness: lethargic HEENT normocephalic, head/scalp atraumatic and moist oral mucous membranes Mouth: dry mucous membranes Eyes PERRL, EOMs intact bilaterally and conjunctivae normal Neck supple, no JVD, thyroid normal and no carotid bruits General: trachea midline Resp normal respiratory effort, no retractions, no use of accessory muscles and clear to auscultation bilaterally Auscultation: Negative for rales, rhonchi or wheezes Cardio S1 normal heart sound, S2 normal heart sound, no rub and no gallops Cardio Narrative: Heart rate and rhythm is irregular GI normal to inspection, nondistended, normoactive bowel sounds, soft to palpation, non-tender and non-distended Extremity no clubbing, cyanosis or edema Skin Skin Narrative: Large area of dry gangrene is noted over the patient's lower third of her left foot, there is a neuropathic ulceration noted of the patient's right heel approximately 1 to 2 cm in diameter Neuro CN's II-XII intact bilaterally Psych Psych Narrative: Patient is lethargic and somnolent Assessment & Plan Assessment/Plan (1) Atrial fibrillation and flutter: PLAN: Plan 1. Hyperkalemia-resolved at this time, patient's labs will be monitored #2 chronic atrial fibrillation with RVR-patient's heart rate remains tachycardic at times, I have elected to increase the patient's metoprolol #3 type 2 diabetes-blood sugars will be monitored via fingerstick blood sugars, sliding scale insulin will be given #4 chronic kidney disease stage IIIb-secondary to type 2 diabetes, labs will be monitored #5 clinical dehydration-I have elected to increase the patient's fluid administration, labs will be monitored #6 encephalopathy secondary to dehydration and multiple medical issues, complicates care, medical course, recovery, and prognosis #7 hypercoagulable state secondary to chronic atrial fibrillation-patient is on Eliquis. #8 dry gangrene of the left foot-patient was seen by wound care and vascular surgery, she will need to undergo [id number] amputation on the left early next week. Patient will remain hospitalized. I discussed the case with vascular surgery today. #9 hypothyroidism-patient is on Synthroid Total clinical time spent by myself addressing the patient's medical issues, reviewing all of the data, and collaborating with patient's care team: 50 minutes Charges/Coding Visit Charges Inpatient E&M: 47287 Subs Hosp L3
[2022-04-27] MEDS: Juven (unflavored) Packet 1 PACKET PO (21:13)
[2022-04-27] MEDS: Mirtazapine 15 MG Tablet PO (21:15)
[2022-04-27] MEDS: traZODone 100 MG Tablet 150 MG PO (21:15)
[2022-04-27 22:31] LABS: Bedside Glucose 84 mg/dL (74-106)
[2022-04-28] VITALS (7 sets, daily range): BP systolic 92–116; BP diastolic 52–83; PULSE 90–108; RESP 16–18; TEMP 36.4–37.1; O2SAT 95–99
[2022-04-28] MEDS: 0.9% Normal Saline 1,000 ML 125 ML IV ×3 (01:27→16:48)
[2022-04-28] MEDS: Levothyroxine 25 MCG TABLET PO (05:04)
[2022-04-28] MEDS: Levothyroxine 100 MCG Tablet PO (05:04)
[2022-04-28] MEDS: Gabapentin 300 MG Capsule PO ×3 (05:04→20:42)
[2022-04-28] MEDS: Menthol/Lanolin/Calamine/Znox 113 GM Tube 1 APPLIC TOPICAL ×3 (05:06→20:40)
[2022-04-28] MEDS: Nystatin Powder 15gm Bottle 1 APPLIC TOPICAL ×3 (05:07→20:41)
[2022-04-28 05:51] LABS: Absolute Lymphocyte Count 1.26 X10^3/uL (0.83-4.51); Basophil# 0.04 X10^3/uL; Basophil% 0.4 % (0-1); Eosinophil# 0.37 X10^3/uL; Eosinophils% 3.8 % (0-5); Hematocrit 26.8 % (37-47); Hemoglobin 7.6 g/dL (12.0-15.0); Lymphocyte # 1.26 X10^3/ul (0.83-4.51); Lymphocyte % 13.1 % (19-41); Mean Corp Hgb Conc 28.4 g/dL (32-36); Mean Corpuscular Hgb 28.9 pg (27.0-32.0); Mean Corpuscular Volume 101.9 fL (81-99); Mean Platelet Vol. 10.5 fl (6.2-12.0); Monocyte# 0.92 X10^3/uL; Monocyte% 9.6 % (0-10); NRBC Flagged by Analyzer 0 % (0-5); Neutrophil # 6.98 X10^3/uL (2.7-7.7); Neutrophil % 72.5 % (47-70); POSITIVE MORPHOLOGY YES; Platelet Count 150 K/mm3 (150-450); RBC Distribution Width SD 67.9 fl (35.1-43.9); Red Blood Count 2.63 M/mm3 (4.2-5.4); White Blood Count 9.6 K/mm3 (4.4-11.0)
[2022-04-28 06:04] LABS: Differential Indicated SCAN CRITERIA MET
[2022-04-28 06:18] LABS: ALB/GLOB Ratio 0.5 RATIO (0.9-2.4); AST(SGOT) 10 U/L (15-37); Alanine Aminotransfer ALT/SGPT 9 U/L (13-56); Albumin, Serum 1.9 g/dL (3.2-5.0); Alkaline Phosphatase 180 U/L (45-117); Anion Gap 2 (5-15); BUN 40 mg/dL (7-18); BUN/Creat Ratio 28.4 RATIO (10-20); Calcium,Total 8.8 mg/dL (8.5-10.1); Chloride 110 mmol/L (98-107); Creatinine, Serum 1.41 mg/dL (0.55-1.02); EST Glomerular Filtration Rate 40 mL/min (>60); Est Glom Filt Rate - Afr Amer 48 mL/min (>60); Estimated Creatinine Clearance 33.89 ml/min; Globulin 4.1 g/dL (2.2-4.2); Glucose 128 mg/dL (74-106); Potassium 4.7 mmol/L (3.5-5.1); Sodium Level 139 mmol/L (136-145)
[2022-04-28 06:25] LABS: Bedside Glucose 134 mg/dL (74-106)
[2022-04-28 06:29] LABS: Anisocytosis 1+; Differential Comment SCANNED; Hypochromasia 2+; Macrocytosis 1+
--- NOTE | 2022-04-28 07:54 | CASEMGMT ---
SW received a return voice mail from patient's son yesterday around 5p. He said he was at work when SW called. He told SW to call back. Clare DASILVA
[2022-04-28] MEDS: Insulin Lispro 100 UNIT/ML INSULN.PEN 10 UNIT SC ×2 (08:28→11:40)
[2022-04-28] MEDS: APIXABAN 5 MG TABLET PO ×2 (08:31→20:42)
[2022-04-28] MEDS: Aspirin E.C. 81 MG Tablet PO (08:31)
[2022-04-28] MEDS: Ferrous Sulfate 325 MG Tablet PO (08:31)
[2022-04-28] MEDS: Juven (unflavored) Packet 1 PACKET PO ×2 (08:32→20:43)
[2022-04-28] MEDS: Pantoprazole Sodium 40 MG Tablet PO ×2 (08:33→20:42)
[2022-04-28] MEDS: Metoprolol(XL)Succ 50 MG Tablet PO ×2 (08:33→20:42)
[2022-04-28] MEDS: Paroxetine 20 MG Tablet PO (08:33)
[2022-04-28] MEDS: Acetaminophen 325 MG Tablet 650 MG PO ×2 (09:39→16:56)
--- NOTE | 2022-04-28 10:21 | CASEMGMT ---
GREG was able to talk with patient this am and she confirmed her plan is to return to [place]. Patient will be getting an above the knee amputation next week. Patient will stay at [facility] until then. GREG will send updates to [place]. Clare DASILVA
--- NOTE | 2022-04-28 10:24 | CASEMGMT ---
GREG did call patient's son and left him a voice mail making sure plan is to return to [place]. Patient's orientation is questionable at this time. Clare DASILVA
--- NOTE | 2022-04-28 10:32 | CASEMGMT ---
GREG sent Arjay updates on patient via [employer]. Clare Kaufman [employer] [employer]OWN
[2022-04-28 12:50] LABS: Bedside Glucose 122 mg/dL (74-106)
--- NOTE | 2022-04-28 16:27 | PCM.PN.SRG ---
Subjective Subjective Patient has remained stable, her potassium remains within normal range today, she continues to receive fluids. Her mental status seems improved, alert and oriented to self and place, answering most questions appropriately. She reports pain in her left foot. Otherwise, no complaints. We discussed ROBB again today and she stated that she would still like to proceed with this. Objective Data Objective Data Vital Signs: Vital Signs Temp Pulse Resp BP Pulse Ox O2 Del Method O2 Flow Rate 98.6 F 106 H 16 116/66 99 Nasal Cannula 2 04/28/22 08:33 04/28/22 08:33 04/28/22 08:33 04/28/22 08:33 04/28/22 08:33 04/28/22 13:34 04/28/22 13:34 Oxygen Flow Rate (L/min) 2 Oxygen Delivery Method Nasal Cannula Weight: 184 lb 8.43 oz Body Mass Index (BMI) 30.7 Intake & Output: Intake and Output for Last 24 Hours 04/26/22 04/27/22 04/28/22 23:59 23:59 23:59 Intake Total 1430 / 1430 2232.5 / 2232.5 2635.42 / 2635.42 Balance 1430 / 1430 2232.5 / 2232.5 2635.42 / 2635.42 Lab / Micro Data Result Diagrams: 04/28/22 05:24 04/28/22 05:24 Labs: Laboratory Results - last 24 hr 04/27/22 16:40: POC Glucose 125 H 04/27/22 21:10: POC Glucose 84 04/28/22 05:24: WBC 9.6, RBC 2.63 L, Hgb 7.6 L, Hct 26.8 L, MCV 101.9 H, MCH 28.9, MCHC 28.4 L, RDW Std Deviation 67.9 H, RDW Coeff of Magen 18.0 H, Plt Count 150, MPV 10.5, Immature Gran % (Auto) 0.600, Neut % (Auto) 72.5 H, Lymph % (Auto) 13.1 L, [place] % (Auto) 9.6, Eos % (Auto) 3.8, Baso % (Auto) 0.4, Absolute Neuts (auto) 7.0, Absolute Lymphs (auto) 1.26, Nucleated RBC % 0, Differential Comment SCANNED, Hypochromasia 2+, Anisocytosis 1+, Macrocytosis 1+ 04/28/22 05:24: Sodium 139, Potassium 4.7, Chloride 110 H, Carbon Dioxide 27.0, Anion Gap 2 L, BUN 40 H, Creatinine 1.41 H, Estim Creat Clear Calc 33.89, Est GFR (MDRD) Af Amer 48 L, Est GFR (MDRD) Non-Af 40 L, BUN/Creatinine Ratio 28.4 H, Glucose 128 H, Calcium 8.8, Total Bilirubin 0.70, AST 10 L, ALT 9 L, Alkaline Phosphatase 180 H, Total Protein 6.0 L, Albumin 1.9 L, Globulin 4.1, Albumin/Globulin Ratio 0.5 L 04/28/22 06:03: POC Glucose 134 H 04/28/22 11:39: POC Glucose 122 H Micro: Microbiology 04/26/22 11:29 Blood Culture (Wb) - Anticubital Left Blood Culture - Preliminary No growth in 48 hours. 04/26/22 10:16 Blood Culture (Wb) - Venous Blood Culture - Preliminary No growth in 48 hours. Rhythm Strip Rhythm Strip: A-fib Rate: 123 Ectopy: None Physical Exam Const alert and no apparent distress General Appearance: cooperative and ill appearing Positive for acutely and chronically; Negative for combative or lethargic Orientation / Consciousness: awake Exam Limitations: no limitations HEENT Head and Scalp: normocephalic and atraumatic Eyes EOMs intact bilaterally General Eye: normal appearance of both eyes Neck full ROM General: trachea midline Resp normal respiratory effort and no use of accessory muscles Effort and Inspection: Negative for labored, stridor or audible wheezes Cardio Rate: tachycardic Rhythm: abnormal rhythm Back/Spine Cervical Spine: cervical ROM normal Skin no rashes or lesions noted Skin Narrative: bilateral foot wounds with dressings intact Neuro CN's II-XII intact bilaterally, no focal motor deficits and no sensory deficits noted Psych cooperative, affect normal, speech normal and activity/motor behavior normal Assessment & Plan Assessment/Plan (1) Dry gangrene: PLAN: Discussed patient with wound care nurse, she reports left foot dry gangrene is stable today. Patient remains agreeable to left AKA. I did contact her son, Aydin (POLauro), via phone today. We had a discussion regarding her overall status and the current plan for AKA. All of his questions were answered. He is also agreeable to proceed with ROBB. Patient is scheduled in the OR at 1130 on Sunday as long as she is medically fit for surgery at that time. Charges/Coding Visit Charges Inpatient E&M: 67073 Subs Hosp L1
[2022-04-28 18:55] LABS: Bedside Glucose 102 mg/dL (74-106)
--- NOTE | 2022-04-28 19:34 | PN.HOSP_ITS ---
Reason for Visit Reason for Visit: Diagnoses Unspecified atrial fibrillation (04/26/22) Unspecified atrial flutter (04/26/22) Gangrene, not elsewhere classified (04/26/22) Subjective Subjective Patient was seen and examined today, she appeared more alert today, she asked if she could have an increase in her pain medications due to left foot pain. Objective Data Objective Data Vital Signs: Vital Signs Temp Pulse Resp BP Pulse Ox O2 Del Method O2 Flow Rate 98.4 F 99 16 92/67 95 Nasal Cannula 2 04/28/22 18:33 04/28/22 18:33 04/28/22 18:33 04/28/22 18:33 04/28/22 18:33 04/28/22 18:33 04/28/22 18:33 Oxygen Flow Rate (L/min) 2 Oxygen Delivery Method Nasal Cannula Weight: 83.7 kg Body Mass Index (BMI) 30.7 Intake & Output: Intake and Output for Last 24 Hours 04/26/22 04/27/22 04/28/22 23:59 23:59 23:59 Intake Total 1430 / 1430 2232.5 / 2232.5 3635.42 / 3635.42 Balance 1430 / 1430 2232.5 / 2232.5 3635.42 / 3635.42 Lab / Micro Data Result Diagrams: 04/28/22 05:24 04/28/22 05:24 Labs: Laboratory Results - last 24 hr 04/27/22 21:10: POC Glucose 84 04/28/22 05:24: WBC 9.6, RBC 2.63 L, Hgb 7.6 L, Hct 26.8 L, MCV 101.9 H, MCH 28.9, MCHC 28.4 L, RDW Std Deviation 67.9 H, RDW Coeff of Magen 18.0 H, Plt Count 150, MPV 10.5, Immature Gran % (Auto) 0.600, Neut % (Auto) 72.5 H, Lymph % (Auto) 13.1 L, [place] % (Auto) 9.6, Eos % (Auto) 3.8, Baso % (Auto) 0.4, Absolute Neuts (auto) 7.0, Absolute Lymphs (auto) 1.26, Nucleated RBC % 0, Differential Comment SCANNED, Hypochromasia 2+, Anisocytosis 1+, Macrocytosis 1+ 04/28/22 05:24: Sodium 139, Potassium 4.7, Chloride 110 H, Carbon Dioxide 27.0, Anion Gap 2 L, BUN 40 H, Creatinine 1.41 H, Estim Creat Clear Calc 33.89, Est GFR (MDRD) Af Amer 48 L, Est GFR (MDRD) Non-Af 40 L, BUN/Creatinine Ratio 28.4 H , Glucose 128 H, Calcium 8.8, Total Bilirubin 0.70, AST 10 L, ALT 9 L, Alkaline Phosphatase 180 H, Total Protein 6.0 L, Albumin 1.9 L, Globulin 4.1, Albumin/Globulin Ratio 0.5 L 04/28/22 06:03: POC Glucose 134 H 04/28/22 11:39: POC Glucose 122 H 04/28/22 18:28: POC Glucose 102 Micro: Microbiology 04/26/22 11:29 Blood Culture (Wb) - Anticubital Left Blood Culture - Preliminary No growth in 48 hours. 04/26/22 10:16 Blood Culture (Wb) - Venous Blood Culture - Preliminary No growth in 48 hours. Rhythm Strip Rhythm Strip: A-fib Rate: 123 Ectopy: None Physical Exam Narrative Constitutional Narrative: Patient is somnolent and lethargic, she responds to deep painful stimulation at the time my exam, she is not able to carry on a conversation Orientation / Consciousness: lethargic HEENT normocephalic, head/scalp atraumatic and moist oral mucous membranes Mouth: dry mucous membranes Eyes PERRL, EOMs intact bilaterally and conjunctivae normal Neck supple, no JVD, thyroid normal and no carotid bruits General: trachea midline Resp normal respiratory effort, no retractions, no use of accessory muscles and clear to auscultation bilaterally Auscultation: Negative for rales, rhonchi or wheezes Cardio S1 normal heart sound, S2 normal heart sound, no rub and no gallops Cardio Narrative: Heart rate and rhythm is irregular GI normal to inspection, nondistended, normoactive bowel sounds, soft to palpation, non-tender and non-distended Extremity no clubbing, cyanosis or edema Skin Skin Narrative: Large area of dry gangrene is noted over the patient's lower third of her? left foot, there is a neuropathic ulceration noted of the patient's right heel approximately 1 to 2 cm in diameter Neuro CN's II-XII intact bilaterally Psych Psych Narrative: Patient is lethargic and somnolent Assessment & Plan Assessment/Plan (1) Dry gangrene: (2) Atrial fibrillation and flutter: PLAN: Plan 1. Hyperkalemia-resolved at this time, patient's labs will be monitored #2 chronic atrial fibrillation with RVR-patient's heart rate remains tachycardic at times, continue rate control medication #3 type 2 diabetes-blood sugars will be monitored via fingerstick blood sugars, sliding scale insulin will be given #4 chronic kidney disease stage IIIb-secondary to type 2 diabetes, labs will be monitored #5 clinical dehydration-patient will remain on IV fluids at this time #6 encephalopathy secondary to dehydration and multiple medical issues, complicates care, medical course, recovery, and prognosis #7 hypercoagulable state secondary to chronic atrial fibrillation-patient is on Eliquis. #8 dry gangrene of the left foot-patient was seen by wound care and vascular surgery, she will need to undergo [id number] amputation on the left early next week. Patient will remain hospitalized. I discussed the case with vascula r surgery today. #9 hypothyroidism-patient is on Synthroid #10 chronic hypoxic respiratory failure-patient remains on low-flow nasal cannula oxygen #11 chronic iron deficiency anemia-patient will remain on iron supplementation, patient will receive Venofer again tomorrow Total clinical time spent by myself addressing the patient's medical issues, reviewing all of the data, and collaborating with patient's care team: 35 minutes Charges/Coding Visit Charges Inpatient E&M: 85466 Subs Hosp L2
[2022-04-28] MEDS: Glucerna Shake 120 ML LIQUID PO (20:41)
[2022-04-28] MEDS: traZODone 100 MG Tablet 150 MG PO (20:42)
[2022-04-28] MEDS: Mirtazapine 15 MG Tablet PO (20:42)
[2022-04-28 22:50] LABS: Bedside Glucose 99 mg/dL (74-106)
[2022-04-29] VITALS (18 sets, daily range): BP systolic 91–117; BP diastolic 64–75; PULSE 89–111; RESP 18; TEMP 36.5–36.7; O2SAT 81–97
[2022-04-29] MEDS: 0.9% Normal Saline 1,000 ML 100 ML IV ×3 (01:02→23:58)
[2022-04-29] MEDS: HYDROmorphone 2 MG TABLET PO (02:38)
[2022-04-29] MEDS: Menthol/Lanolin/Calamine/Znox 113 GM Tube 1 APPLIC TOPICAL ×3 (04:50→22:28)
[2022-04-29] MEDS: Nystatin Powder 15gm Bottle 1 APPLIC TOPICAL ×3 (04:50→22:28)
[2022-04-29] MEDS: Gabapentin 300 MG Capsule PO (04:51)
[2022-04-29] MEDS: Levothyroxine 100 MCG Tablet PO (04:51)
[2022-04-29] MEDS: Levothyroxine 25 MCG TABLET PO (04:51)
[2022-04-29 07:46] LABS: Absolute Neutrophil Count 9.2 X10^3/uL (2.0-7.7); Basophil# 0.07 X10^3/uL; Basophil% 0.6 % (0-1); Eosinophil# 0.31 X10^3/uL; Eosinophils% 2.6 % (0-5); Hematocrit 27.4 % (37-47); Hemoglobin 7.8 g/dL (12.0-15.0); Lymphocyte % 10.1 % (19-41); Mean Corp Hgb Conc 28.5 g/dL (32-36); Mean Corpuscular Hgb 29.2 pg (27.0-32.0); Mean Corpuscular Volume 102.6 fL (81-99); Mean Platelet Vol. 10.6 fl (6.2-12.0); Monocyte# 0.88 X10^3/uL; Monocyte% 7.4 % (0-10); NRBC Flagged by Analyzer 0.2 % (0-5); Neutrophil # 9.18 X10^3/uL (2.7-7.7); Neutrophil % 77.5 % (47-70); POSITIVE MORPHOLOGY YES; Platelet Count 159 K/mm3 (150-450); RBC Distribution Width CV 18.3 % (11.6-14.6); RBC Distribution Width SD 68.4 fl (35.1-43.9); Red Blood Count 2.67 M/mm3 (4.2-5.4); White Blood Count 11.9 K/mm3 (4.4-11.0)
[2022-04-29 07:54] LABS: Differential Indicated SCAN CRITERIA MET
[2022-04-29 08:01] LABS: Bedside Glucose 126 mg/dL (74-106)
[2022-04-29 08:51] LABS: Anion Gap 5 (5-15); BUN 46 mg/dL (7-18); BUN/Creat Ratio 35.4 RATIO (10-20); Calcium,Total 9.2 mg/dL (8.5-10.1); Chloride 109 mmol/L (98-107); EST Glomerular Filtration Rate 44 mL/min (>60); Est Glom Filt Rate - Afr Amer 53 mL/min (>60); Estimated Creatinine Clearance 36.76 ml/min; Glucose 120 mg/dL (74-106); Potassium 4.9 mmol/L (3.5-5.1); Sodium Level 138 mmol/L (136-145)
[2022-04-29] MEDS: Juven (unflavored) Packet 1 PACKET PO ×2 (08:57→22:41)
[2022-04-29] MEDS: Glucerna Shake 120 ML LIQUID PO (08:57)
[2022-04-29] MEDS: Polyethylene Glycol 3350 17 GM PACKET PO (08:57)
[2022-04-29 09:20] LABS: Anisocytosis 2+; Differential Comment SCANNED; Hypochromasia 1+; Macrocytosis 1+; Microcytosis 1+
[2022-04-29 11:35] LABS: Bedside Glucose 121 mg/dL (74-106)
--- NOTE | 2022-04-29 17:04 | PN.HOSP_ITS ---
Reason for Visit Reason for Visit: Diagnoses Unspecified atrial fibrillation (04/26/22) Unspecified atrial flutter (04/26/22) Gangrene, not elsewhere classified (04/26/22) Subjective Subjective Patient was seen and examined today, she appeared lethargic and somnolent today, I have elected to readjust the patient's pain medication and decrease her gabapentin. I have elected to continue IV fluids at this time. Objective Data Objective Data Vital Signs: Vital Signs Temp Pulse Resp BP Pulse Ox O2 Del Method O2 Flow Rate 98.0 F 96 18 91/64 96 Nasal Cannula 3 04/29/22 16:18 04/29/22 16:18 04/29/22 16:18 04/29/22 16:18 04/29/22 16:18 04/29/22 16:18 04/29/22 16:18 Oxygen Flow Rate (L/min) 3 Oxygen Delivery Method Nasal Cannula Weight: 83.7 kg Body Mass Index (BMI) 30.7 Intake & Output: Intake and Output for Last 24 Hours 04/27/22 04/28/22 04/29/22 23:59 23:59 23:59 Intake Total 2232.5 / 2232.5 4582.50 / 4582.50 1821.67 / 1821.67 Balance 2232.5 / 2232.5 4582.50 / 4582.50 1821.67 / 1821.67 Lab / Micro Data Result Diagrams: 04/29/22 06:30 04/29/22 06:30 Labs: Laboratory Results - last 24 hr 04/28/22 18:28: POC Glucose 102 04/28/22 20:26: POC Glucose 99 04/29/22 06:30: WBC 11.9 H, RBC 2.67 L, Hgb 7.8 L, Hct 27.4 L, MCV 102.6 H, MCH 29.2, MCHC 28.5 L, RDW Std Deviation 68.4 H, RDW Coeff of Magen 18.3 H, Plt Count 159, MPV 10.6, Immature Gran % (Auto) 1.800 H, Neut % (Auto) 77.5 H, Lymph % (Auto) 10.1 L, [place] % (Auto) 7.4, Eos % (Auto) 2.6, Baso % (Auto) 0.6, Absolute Neuts (auto) 9.2 H, Absolute Lymphs (auto) 1.20, Nucleated RBC % 0.2, Differential Comment SCANNED, Hypochromasia 1+, Anisocytosis 2+, Microcytosis 1+, Macrocytosis 1+ 04/29/22 06:30: Sodium 138, Potassium 4.9, Chloride 109 H, Carbon Dioxide 24.0, Anion Gap 5, BUN 46 H, Creatinine 1.30 H, Estim Creat Clear Calc 36.76, Est GFR (MDRD) Af Amer 53 L, Est GFR (MDRD) Non-Af 44 L, BUN/Creatinine Ratio 35.4 H, Glucose 120 H, Calcium 9.2 04/29/22 07:35: POC Glucose 126 H 04/29/22 11:14: POC Glucose 121 H Micro: Microbiology 04/26/22 11:29 Blood Culture (Wb) - Anticubital Left Blood Culture - Preliminary No growth in 48 hours. 04/26/22 10:16 Blood Culture (Wb) - Venous Blood Culture - Preliminary No growth in 48 hours. Rhythm Strip Rhythm Strip: A-fib Rate: 123 Ectopy: None Physical Exam Narrative Constitutional Narrative: Patient is somnolent and lethargic, she responds to deep painful stimulation at the time my exam, she is not able to carry on a conversation Orientation / Consciousness: lethargic HEENT normocephalic, head/scalp atraumatic and moist oral mucous membranes Mouth: dry mucous membranes Eyes PERRL, EOMs intact bilaterally and conjunctivae normal Neck supple, no JVD, thyroid normal and no carotid bruits General: trachea midline Resp normal respiratory effort, no retractions, no use of accessory muscles and clear to auscultation bilaterally Auscultation: Negative for rales, rhonchi or wheezes Cardio S1 normal heart sound, S2 normal heart sound, no rub and no gallops Cardio Narrative: Heart rate and rhythm is irregular GI normal to inspection, nondistended, normoactive bowel sounds, soft to palpation, non-tender and non-distended Extremity no clubbing, cyanosis or edema Skin Skin Narrative: Large area of dry gangrene is noted over the patient's lower third of her? left foot, there is a neuropathic ulceration noted of the patient's right heel approximately 1 to 2 cm in diameter Neuro CN's II-XII intact bilaterally Psych Psych Narrative: Patient is lethargic and somnolent Const Constitutional Narrative: Patient is lethargic and somnolent, she responds to painful stimulation, she does not carry on a conversation General Appearance: cooperative, well kempt and well developed Orientation / Consciousness: lethargic HEENT normocephalic, head/scalp atraumatic and moist oral mucous membranes Eyes PERRL, EOMs intact bilaterally and conjunctivae normal Neck supple, no JVD, thyroid normal and no carotid bruits General: trachea midline Resp normal respiratory effort, no retractions, no use of accessory muscles and clear to auscultation bilaterally Auscultation: Negative for rales, rhonchi or wheezes Cardio S1 normal heart sound, S2 normal heart sound, no murmurs, no rub and no gallops Cardio Narrative: Heart rate and rhythm is irregular GI normal to inspection, nondistended, normoactive bowel sounds, soft to palpation, non-tender and non-distended Extremity no clubbing, cyanosis or edema Extremity Narrative: Left and right feet are wrapped with surgical dressing, this was not removed for examination of the lower extremities Skin no rashes or lesions noted Skin Narrative: Large area of dry gangrene is noted over the patient's lower third of her left foot, there is a neuropathic ulceration noted of the patient's right heel approximately 1 to 2 cm in diameter General Skin Exam: no breakdown Neuro CN's II-XII intact bilaterally Neuro Narrative: Patient is somnolent, she responds to painful stimuli but not verbal cues Sensorium / Orientation: awake, alert and oriented to person Speech: speech normal Psych affect normal Psych Narrative: Patient is somnolent Assessment & Plan Assessment/Plan (1) Dry gangrene: (2) Atrial fibrillation and flutter: PLAN: Plan 1. Hyperkalemia-resolved at this time, patient's labs will be monitored #2 chronic atrial fibrillation with RVR-patient's heart rate remains tachycardic at times, continue rate control medication #3 type 2 diabetes-blood sugars will be monitored via fingerstick blood sugars, sliding scale insulin will be given #4 chronic kidney disease stage IIIb-secondary to type 2 diabetes, labs will be monitored #5 clinical dehydration-patient will remain on IV fluids at this time #6 encephalopathy secondary to dehydration and multiple medical issues, complicates care, medical course, recovery, and prognosis #7 hypercoagulable state secondary to chronic atrial fibrillation-patient is on Eliquis. #8 dry gangrene of the left foot-patient was seen by wound care and vascular surgery, she will need to undergo [id number] amputation on the left early next week. Patient will remain hospitalized. #9 hypothyroidism-patient is on Synthroid #10 chronic hypoxic respiratory failure-patient remains on low-flow nasal cannula oxygen #11 chronic iron deficiency anemia-patient will remain on iron supplementation Total clinical time spent by myself addressing the patient's medical issues, reviewing all of the data, and collaborating with patient's care team: 35 minutes Charges/Coding Visit Charges Inpatient E&M: 51035 Subs Hosp L2
[2022-04-29 17:10] LABS: Bedside Glucose 119 mg/dL (74-106)
[2022-04-29] MEDS: HYDROmorphone 2 MG TABLET 0.5 MG PO (18:05)
[2022-04-29] MEDS: Metoprolol(XL)Succ 50 MG Tablet PO (22:41)
[2022-04-29] MEDS: Mirtazapine 15 MG Tablet PO (22:41)
[2022-04-29] MEDS: APIXABAN 5 MG TABLET PO (22:41)
[2022-04-29] MEDS: Acetaminophen 325 MG Tablet 650 MG PO (22:41)
[2022-04-29] MEDS: Pantoprazole Sodium 40 MG Tablet PO (22:41)
[2022-04-29] MEDS: Gabapentin 100 MG Capsule PO (22:41)
[2022-04-29] MEDS: traZODone 100 MG Tablet 150 MG PO (22:41)
[2022-04-29 23:06] LABS: Bedside Glucose 116 mg/dL (74-106)
[2022-04-30] VITALS (10 sets, daily range): BP systolic 93–128; BP diastolic 64–96; PULSE 100–109; RESP 13–18; TEMP 36.1–37.1; O2SAT 90–98
[2022-04-30 05:26] LABS: Bedside Glucose 125 mg/dL (74-106)
[2022-04-30] MEDS: Nystatin Powder 15gm Bottle 1 APPLIC TOPICAL ×3 (05:50→22:26)
[2022-04-30] MEDS: Menthol/Lanolin/Calamine/Znox 113 GM Tube 1 APPLIC TOPICAL ×3 (05:51→22:26)
[2022-04-30] MEDS: Levothyroxine 25 MCG TABLET PO (05:52)
[2022-04-30] MEDS: Levothyroxine 100 MCG Tablet PO (05:52)
[2022-04-30] MEDS: Gabapentin 100 MG Capsule PO (05:54)
[2022-04-30 07:50] LABS: Bedside Glucose 147 mg/dL (74-106)
[2022-04-30 08:41] LABS: Absolute Neutrophil Count 9.8 X10^3/uL (2.0-7.7); Basophil# 0.06 X10^3/uL; Basophil% 0.5 % (0-1); Differential Indicated SCAN CRITERIA MET; Eosinophil# 0.22 X10^3/uL; Eosinophils% 1.8 % (0-5); Hematocrit 27.3 % (37-47); Hemoglobin 7.7 g/dL (12.0-15.0); Mean Corp Hgb Conc 28.2 g/dL (32-36); Mean Corpuscular Hgb 29.3 pg (27.0-32.0); Mean Corpuscular Volume 103.8 fL (81-99); Mean Platelet Vol. 10.4 fl (6.2-12.0); Monocyte# 0.87 X10^3/uL; Monocyte% 7.1 % (0-10); NRBC Flagged by Analyzer 0.2 % (0-5); Neutrophil # 9.76 X10^3/uL (2.7-7.7); Neutrophil % 79.8 % (47-70); POSITIVE MORPHOLOGY YES; Platelet Count 150 K/mm3 (150-450); RBC Distribution Width CV 18.2 % (11.6-14.6); Red Blood Count 2.63 M/mm3 (4.2-5.4); White Blood Count 12.2 K/mm3 (4.4-11.0)
[2022-04-30 10:28] LABS: International Normalized Ratio 2.2; Prothrombin Time (Protime)PT. 24.4 SECONDS (11.7-14.9)
[2022-04-30 10:31] LABS: Anisocytosis 2+; Differential Comment SCANNED; Hypochromasia 1+; Macrocytosis 1+; Microcytosis 1+
[2022-04-30 11:20] LABS: Bedside Glucose 141 mg/dL (74-106)
--- NOTE | 2022-04-30 13:02 | RAD_ITS ---
STUDY: XR Chest 1 View 04/30/2022 2:31 PM REASON FOR EXAM: Female, 67 years old. CHEST PAIN picc line verification COMPARISON: 04.26.22 TECHNIQUE: XR Chest 1 View FINDINGS: There are bilateral pleural effusions. There are bilateral infiltrates. There is no pneumothorax. There is a left PICC line in place. The tip is in the superior vena caval - atrial junction. Enlarged heart size. Normal mediastinum. Prominent sol. Prominent appearing increased interstitial lung markings. Prominent visualized pulmonary arteries. There is atherosclerotic calcification of the aortic arch with tortuosity. There are diffuse degenerative changes of the visualized thoracic spine. There is degenerative osteoarthritis of the bilateral shoulders. There is no demonstrated abnormality of the visualized soft tissue structures of the upper abdomen. RAD/Chest 1 View (Portable) IMPRESSION: Pulmonary findings appear worse. Electronically Signed: Sony Bruce MD at 15:35 EST ,
[2022-04-30] MEDS: HYDROmorphone 2 MG TABLET 0.5 MG PO (16:08)
[2022-04-30] MEDS: Glucerna Shake 120 ML LIQUID PO (16:10)
[2022-04-30 16:30] LABS: Bedside Glucose 142 mg/dL (74-106)
[2022-04-30] MEDS: Insulin Lispro 100 UNIT/ML INSULN.PEN 10 UNIT SC (17:04)
--- NOTE | 2022-04-30 17:23 | PN.HOSP_ITS ---
Reason for Visit Reason for Visit: Diagnoses Unspecified atrial fibrillation (04/26/22) Unspecified atrial flutter (04/26/22) Gangrene, not elsewhere classified (04/26/22) Subjective Subjective Patient was seen and examined today, her white blood cell count is 12.2, hemoglobin was 7.7 today. Patient was lethargic this morning, later on in the d ay she was able to talk and was alert. I ordered an ammonia level which was minimally elevated at 47, I do not have the opinion that this is what was causing her lethargy this morning. Objective Data Objective Data Vital Signs: Vital Signs Temp Pulse Resp BP Pulse Ox O2 Del Method O2 Flow Rate 98.5 F 106 H 18 118/80 97 Nasal Cannula 2 04/30/22 15:53 04/30/22 15:53 04/30/22 15:53 04/30/22 15:53 04/30/22 15:53 04/30/22 15:53 04/30/22 15:53 FiO2 93 04/30/22 07:26 Oxygen Flow Rate (L/min) 2 Oxygen Delivery Method Nasal Cannula Weight: 83.7 kg Body Mass Index (BMI) 30.7 Intake & Output: Intake and Output for Last 24 Hours 04/28/22 04/29/22 04/30/22 23:59 23:59 23:59 Intake Total 4582.50 / 4582.50 3061.67 / 3061.67 945 / 945 Balance 4582.50 / 4582.50 3061.67 / 3061.67 945 / 945 Lab / Micro Data Result Diagrams: 04/30/22 08:30 04/29/22 06:30 Labs: Laboratory Results - last 24 hr 04/29/22 22:35: POC Glucose 116 H 04/30/22 03:13: POC Glucose 125 H 04/30/22 07:23: POC Glucose 147 H 04/30/22 08:30: Ammonia 47.0 H 04/30/22 08:30: WBC 12.2 H, RBC 2.63 L, Hgb 7.7 L, Hct 27.3 L, MCV 103.8 H, MCH 29.3, MCHC 28.2 L, RDW Std Deviation 69.0 H, RDW Coeff of Magen 18.2 H, Plt Count 150, MPV 10.4, Immature Gran % (Auto) 1.800 H, Neut % (Auto) 79.8 H, Lymph % (Auto) 9.0 L, [place] % (Auto) 7.1, Eos % (Auto) 1.8, Baso % (Auto) 0.5, Absolute Neuts (auto) 9.8 H, Absolute Lymphs (auto) 1.10, Nucleated RBC % 0.2, Differential Comment SCANNED, Hypochromasia 1+, Anisocytosis 2+, Microcytosis 1+, Macrocytosis 1+ 04/30/22 08:30: PT 24.4 H, INR 2.2 04/30/22 10:58: POC Glucose 141 H 04/30/22 16:06: POC Glucose 142 H Micro: Microbiology 04/26/22 11:29 Blood Culture (Wb) - Anticubital Left Blood Culture - Preliminary No growth in 48 hours. 04/26/22 10:16 Blood Culture (Wb) - Venous Blood Culture - Preliminary No growth in 48 hours. Radiography Diagnostic Testing: Radiology Impression Chest X-Ray 04/30/22 13:02 IMPRESSION: Pulmonary findings appear worse. Electronically Signed: Sony Bruce MD at 15:35 EST Reading Location ID and State: [facility] / [place] , Service support , Rhythm Strip Rhythm Strip: A-fib Rate: 123 Ectopy: None Physical Exam Narrative Constitutional Narrative: Patient is somnolent and lethargic, she responds to deep painful stimulation at the time my exam, she is not able to carry on a conversation Orientation / Consciousness: lethargic HEENT normocephalic, head/scalp atraumatic and moist oral mucous membranes Mouth: dry mucous membranes Eyes PERRL, EOMs intact bilaterally and conjunctivae normal Neck supple, no JVD, thyroid normal and no carotid bruits General: trachea midline Resp normal respiratory effort, no retractions, no use of accessory muscles and clear to auscultation bilaterally Auscultation: Negative for rales, rhonchi or wheezes Cardio S1 normal heart sound, S2 normal heart sound, no rub and no gallops Cardio Narrative: Heart rate and rhythm is irregular GI normal to inspection, nondistended, normoactive bowel sounds, soft to palpation, non-tender and non-distended Extremity no clubbing, cyanosis or edema Skin Skin Narrative: Large area of dry gangrene is noted over the patient's lower third of her? left foot, there is a neuropathic ulceration noted of the patient's right heel approximately 1 to 2 cm in diameter Neuro CN's II-XII intact bilaterally Psych Psych Narrative: Patient is lethargic and somnolent Assessment & Plan Assessment/Plan (1) Atrial fibrillation and flutter: (2) Dry gangrene: PLAN: Plan 1. Hyperkalemia-resolved at this time, patient's labs will be monitored #2 chronic atrial fibrillation with RVR-patient's heart rate remains tachycardic at times, continue rate control medication #3 type 2 diabetes-blood sugars will be monitored via fingerstick blood sugars, sliding scale insulin will be given #4 chronic kidney disease stage IIIb-secondary to type 2 diabetes, labs will be monitored #5 clinical dehydration-I have elected to stop her IV fluids for now, patient was on large amounts of diuretics as an outpatient in the long-term, I will repeat a CMP tomorrow #6 encephalopathy secondary to dehydration and multiple medical issues, com plicates care, medical course, recovery, and prognosis, this afternoon, patient was alert and talkative. #7 hypercoagulable state secondary to chronic atrial fibrillation-patient is on Eliquis. #8 dry gangrene of the left foot-patient was seen by wound care and vascular surgery, she will need to undergo [id number] amputation on the left early next week. Patient will remain hospitalized. #9 hypothyroidism-patient is on Synthroid #10 chronic hypoxic respiratory failure-patient remains on low-flow nasal cannula oxygen #11 chronic iron deficiency anemia-patient will remain on iron supplementation Total clinical time spent by myself addressing the patient's medical issues, reviewing all of the data, and collaborating with patient's care team: 35 minutes Charges/Coding Visit Charges Inpatient E&M: 41572 Subs Hosp L2
[2022-04-30] MEDS: Acetaminophen 325 MG Tablet 650 MG PO (18:48)
[2022-04-30] MEDS: 0.9% Saline Lock 10 ML Syringe IV (18:51)
[2022-04-30] MEDS: Morphine 4 MG/ML Syringe IV (18:52)
[2022-05-01] VITALS (18 sets, daily range): BP systolic 99–127; BP diastolic 47–92; PULSE 101–125; RESP 12–23; TEMP 36.1–36.9; O2SAT 93–98
[2022-05-01 01:16] LABS: Bedside Glucose 99 mg/dL (74-106)
[2022-05-01] MEDS: Nystatin Powder 15gm Bottle 1 APPLIC TOPICAL ×3 (05:35→21:39)
[2022-05-01] MEDS: Menthol/Lanolin/Calamine/Znox 113 GM Tube 1 APPLIC TOPICAL ×3 (05:35→21:37)
[2022-05-01] MEDS: Gabapentin 100 MG Capsule PO (05:47)
[2022-05-01] MEDS: HYDROmorphone 2 MG TABLET 0.5 MG PO (05:47)
[2022-05-01] MEDS: Levothyroxine 25 MCG TABLET PO (05:47)
[2022-05-01] MEDS: Levothyroxine 100 MCG Tablet PO (05:47)
[2022-05-01 06:00] LABS: Absolute Lymphocyte Count 1.36 X10^3/uL (0.83-4.51); Absolute Neutrophil Count 9.6 X10^3/uL (2.0-7.7); Basophil# 0.04 X10^3/uL; Basophil% 0.3 % (0-1); Eosinophil# 0.28 X10^3/uL; Eosinophils% 2.3 % (0-5); Hematocrit 26.8 % (37-47); Hemoglobin 7.5 g/dL (12.0-15.0); Lymphocyte # 1.36 X10^3/ul (0.83-4.51); Lymphocyte % 11.3 % (19-41); Mean Corpuscular Hgb 29.6 pg (27.0-32.0); Mean Corpuscular Volume 105.9 fL (81-99); Mean Platelet Vol. 10.6 fl (6.2-12.0); Monocyte# 0.68 X10^3/uL; Monocyte% 5.6 % (0-10); NRBC Flagged by Analyzer 0.2 % (0-5); Neutrophil # 9.55 X10^3/uL (2.7-7.7); Neutrophil % 79.3 % (47-70); POSITIVE MORPHOLOGY YES; Platelet Count 155 K/mm3 (150-450); RBC Distribution Width CV 18.4 % (11.6-14.6); RBC Distribution Width SD 71.7 fl (35.1-43.9); Red Blood Count 2.53 M/mm3 (4.2-5.4); White Blood Count 12.1 K/mm3 (4.4-11.0)
[2022-05-01 06:37] LABS: Differential Indicated SCAN CRITERIA MET
[2022-05-01 06:39] LABS: ALB/GLOB Ratio 0.4 RATIO (0.9-2.4); AST(SGOT) 10 U/L (15-37); Alanine Aminotransfer ALT/SGPT 13 U/L (13-56); Albumin, Serum 1.8 g/dL (3.2-5.0); Alkaline Phosphatase 154 U/L (45-117); Anion Gap 5 (5-15); BUN 56 mg/dL (7-18); BUN/Creat Ratio 36.6 RATIO (10-20); Calcium,Total 9.4 mg/dL (8.5-10.1); Chloride 112 mmol/L (98-107); Creatinine, Serum 1.53 mg/dL (0.55-1.02); EST Glomerular Filtration Rate 36 mL/min (>60); Est Glom Filt Rate - Afr Amer 44 mL/min (>60); Estimated Creatinine Clearance 31.23 ml/min; Glucose 95 mg/dL (74-106); Potassium 5.3 mmol/L (3.5-5.1); Protein, Total 5.8 g/dL (6.4-8.2); Sodium Level 140 mmol/L (136-145)
[2022-05-01 06:40] LABS: International Normalized Ratio 1.8; Prothrombin Time (Protime)PT. 20.2 SECONDS (11.7-14.9)
[2022-05-01 07:12] LABS: Anisocytosis 2+; Hypochromasia 1+; Macrocytosis 2+
[2022-05-01 07:56] LABS: Bedside Glucose 116 mg/dL (74-106)
[2022-05-01 09:11] LABS: Bedside Glucose 57 mg/dL (74-106)
[2022-05-01 09:11] LABS: Bedside Glucose 52 mg/dL (74-106)
[2022-05-01] MEDS: Acetaminophen 325 MG Tablet 650 MG PO ×2 (09:25→21:40)
[2022-05-01] MEDS: Paroxetine 20 MG Tablet PO (09:25)
[2022-05-01] MEDS: Sodium Polystyrene Sulfonate 15 GM/60 ML UDC 30 GM PO (09:26)
[2022-05-01] MEDS: Pantoprazole Sodium 40 MG Tablet PO ×2 (09:26→21:39)
[2022-05-01] MEDS: Aspirin E.C. 81 MG Tablet PO (09:26)
[2022-05-01] MEDS: Metoprolol(XL)Succ 50 MG Tablet PO ×2 (09:27→21:40)
--- NOTE | 2022-05-01 10:44 | PN_ITS ---
Subjective Subjective Patient seen and examined today. She did complain of some nausea and vomiting overnight. She denies any fever, chills, chest pain, palpitations, dizziness or shortness of breath. She does remain quite lethargic. Review of systems is otherwise negative. Potassium is still elevated and is 5.3 today. Objective Data Objective Data Vital Signs: Vital Signs Temp Pulse Resp BP Pulse Ox O2 Del Method O2 Flow Rate 97.4 F L 114 H 19 H 108/68 94 Nasal Cannula 2 05/01/22 10:00 05/01/22 10:00 05/01/22 10:00 05/01/22 10:00 05/01/22 10:00 05/01/22 10:00 05/01/22 10:00 FiO2 93 04/30/22 07:26 Oxygen Flow Rate (L/min) 2 Oxygen Delivery Method Nasal Cannula Weight: 184 lb 8.43 oz Body Mass Index (BMI) 30.7 Intake & Output: Intake and Output for Last 24 Hours 04/29/22 04/30/22 05/01/22 23:59 23:59 23:59 Intake Total 3061.67 / 3061.67 1345 / 1345 50 / 50 Balance 3061.67 / 3061.67 1345 / 1345 50 / 50 Lab / Micro Data Result Diagrams: 05/01/22 04:53 05/01/22 04:53 Labs: Laboratory Results - last 24 hr 04/28/22 16:52: POC Glucose 57 L 04/28/22 17:03: POC Glucose 52 L 04/30/22 10:58: POC Glucose 141 H 04/30/22 16:06: POC Glucose 142 H 04/30/22 22:25: POC Glucose 99 05/01/22 04:53: WBC 12.1 H, RBC 2.53 L, Hgb 7.5 L, Hct 26.8 L, MCV 105.9 H, MCH 29.6, MCHC 28.0 L, RDW Std Deviation 71.7 H, RDW Coeff of Magen 18.4 H, Plt Count 155, MPV 10.6, Immature Gran % (Auto) 1.200 H, Neut % (Auto) 79.3 H, Lymph % (Auto) 11.3 L, [place] % (Auto) 5.6, Eos % (Auto) 2.3, Baso % (Auto) 0.3, Absolute Neuts (auto) 9.6 H, Absolute Lymphs (auto) 1.36, Nucleated RBC % 0.2, Hypochromasia 1+, Anisocytosis 2+, Macrocytosis 2+ 05/01/22 04:53: PT 20.2 H, INR 1.8 05/01/22 04:53: Sodium 140, Potassium 5.3 H, Chloride 112 H, Carbon Dioxide 23.0, Anion Gap 5, BUN 56 H, Creatinine 1.53 H, Estim Creat Clear Calc 31.23, Est GFR (MDRD) Af Amer 44 L, Est GFR (MDRD) Non-Af 36 L, BUN/Creatinine Ratio 36.6 H, Glucose 95, Calcium 9.4, Total Bilirubin 0.30, AST 10 L, ALT 13, Alkaline Phosphatase 154 H, Total Protein 5.8 L, Albumin 1.8 L, Globulin 4.0, Albumin/Globulin Ratio 0.4 L 05/01/22 07:36: POC Glucose 116 H Micro: Microbiology 04/26/22 11:29 Blood Culture (Wb) - Anticubital Left Blood Culture - Preliminary No growth in 48 hours. 04/26/22 10:16 Blood Culture (Wb) - Venous Blood Culture - Preliminary No growth in 48 hours. Radiography Diagnostic Testing: Radiology Impression Chest X-Ray 04/30/22 13:02 IMPRESSION: Pulmonary findings appear worse. Electronically Signed: Sony Bruce MD at 15:35 EST Reading Location ID and State: [address] [place] [address] , Service support , Rhythm Strip Rhythm Strip: A-fib Rate: 123 Ectopy: None Physical Exam Const alert Constitutional Narrative: obese Orientation / Consciousness: lethargic HEENT normocephalic and head/scalp atraumatic Mouth: dry mucous membranes Resp Resp Narrative: mildly diminished breath sounds bibasally, no wheezes or crackles. On 2L of oxygen Cardio Cardio Narrative: afib, rate fluctuating and poorly controlled. HR between 100s and 120s during my review. GI normal to inspection, nondistended, normoactive bowel sounds, soft to palpation and non-tender Extremity normal capillary refill and no clubbing, cyanosis or edema Extremity Narrative: both feet bandaged Neuro CN's II-XII intact bilaterally and no focal motor deficits Neuro Narrative: lethargic Assessment & Plan Assessment/Plan (1) Atrial fibrillation and flutter: (2) Acute hyperkalemia: PLAN: Plan #Hyperkalemia * K is 5.3 today. Has remained elevated * will give kayexalate and trend potassium * #Acute encephalopathy * patient quite lethargic today, though she is able to communicate * ammonia level was only mildly increased at 47 * will check ABG to assess pCO2 level * hold gabapentin and opioid pain meds that can be contributing to confusion. * #Hypothyroidism: on synthroid. Check TSH #Afib: * poorly controlled. HR fluctuating between 100-120 during my review. * On metoprolol. ON eliquis. * Monitor HR and adjust meds as needed #Dry gangrene of left foot * vascular and wound surgery on board. Plan is for left above knee amputation * #Type 2 diabetes mellitus: on lantus 25 units qhs. ISS. Accuchecks ACHS #CKD IIIB: Cr is 1.53, which is around his baseline. Will monitor #Chronic hypoxic respiratory failure:on 2L of oxygen by nasal canula. #Chronic anemia: Hb is 7.5. Baseline is 7-8. Likely due to CKD. Will trend hb. Transfuse if Hb <7 #Depression; on mirtazapine. DVT prophylaxis: on eliquis. Charges/Coding Visit Charges Inpatient E&M: 73116 Subs Hosp L3
--- NOTE | 2022-05-01 11:20 | WOUNDNOTE ---
wound photo: right heel
--- NOTE | 2022-05-01 11:21 | WOUNDNOTE ---
wound photo: left foot
--- NOTE | 2022-05-01 11:21 | WOUNDNOTE ---
wound photo: left foot
--- NOTE | 2022-05-01 11:22 | WOUNDNOTE ---
wound photo: left heel
[2022-05-01 11:46] LABS: Allen Test Positive; Base Excess -2 mmol/L (-2 to +2); Bicarbonate 24.9 mmol/L (22-26); Blood Gas Specimen Type ART; O2 Delivery Device Cannula; PO2 75 mmHG (75-100); SITE R Radial; SO2 92 % (95-99); Total Carbon Dioxide 27 mmol/L; pCO2 56.6 mmHg (35-45); pH 7.25 (7.35-7.45)
[2022-05-01 11:54] LABS: Thyroid Stim Hormone (TSH) 6.37 uIU/mL (0.358-3.74)
[2022-05-01 12:11] LABS: Bedside Glucose 128 mg/dL (74-106)
[2022-05-01 16:50] LABS: Bedside Glucose 115 mg/dL (74-106)
--- NOTE | 2022-05-01 18:00 | PN.SURG_ITS ---
Subjective Subjective Still with intermittent decreased mental status, uncertain cause. On Bipap now to see if improves. Currently is awake, answers questions but difficult to understand with mask. Agreeable to proceed with surgery tomorrow. Family/POA currently visiting and also agree to proceed with AKA tomorrow. Objective Data Objective Data Vital Signs: Vital Signs Temp Pulse Resp BP Pulse Ox O2 Del Method O2 Flow Rate 98.2 F 112 H 18 112/73 95 Bi-pap 2 05/01/22 14:00 05/01/22 16:40 05/01/22 16:40 05/01/22 14:00 05/01/22 16:40 05/01/22 14:00 05/01/22 12:00 FiO2 28 05/01/22 16:40 Oxygen Flow Rate (L/min) 2 Oxygen Delivery Method Bi-pap Weight: 184 lb 8.43 oz Body Mass Index (BMI) 30.7 Intake & Output: Intake and Output for Last 24 Hours 04/29/22 04/30/22 05/01/22 23:59 23:59 23:59 Intake Total 3061.67 / 3061.67 1345 / 1345 170 / 170 Balance 3061.67 / 3061.67 1345 / 1345 170 / 170 Lab / Micro Data Result Diagrams: 05/01/22 04:53 05/01/22 04:53 Labs: Laboratory Results - last 24 hr 04/28/22 16:52: POC Glucose 57 L 04/28/22 17:03: POC Glucose 52 L 04/30/22 22:25: POC Glucose 99 05/01/22 04:53: WBC 12.1 H, RBC 2.53 L, Hgb 7.5 L, Hct 26.8 L, MCV 105.9 H, MCH 29.6, MCHC 28.0 L, RDW Std Deviation 71.7 H, RDW Coeff of Magen 18.4 H, Plt Count 155, MPV 10.6, Immature Gran % (Auto) 1.200 H, Neut % (Auto) 79.3 H, Lymph % (Auto) 11.3 L, [place] % (Auto) 5.6, Eos % (Auto) 2.3, Baso % (Auto) 0.3, Absolute Neuts (auto) 9.6 H, Absolute Lymphs (auto) 1.36, Nucleated RBC % 0.2, Hypochroma pete 1+, Anisocytosis 2+, Macrocytosis 2+ 05/01/22 04:53: PT 20.2 H, INR 1.8 05/01/22 04:53: Sodium 140, Potassium 5.3 H, Chloride 112 H, Carbon Dioxide 23.0, Anion Gap 5, BUN 56 H, Creatinine 1.53 H, Estim Creat Clear Calc 31.23, Est GFR (MDRD) Af Amer 44 L, Est GFR (MDRD) Non-Af 36 L, BUN/Creatinine Ratio 36.6 H, Glucose 95, Calcium 9.4, Total Bilirubin 0.30, AST 10 L, ALT 13, Alkaline Phosphatase 154 H, Total Protein 5.8 L, Albumin 1.8 L, Globulin 4.0, Albumin/Globulin Ratio 0.4 L 05/01/22 04:53: TSH 6.37 H 05/01/22 07:36: POC Glucose 116 H 05/01/22 11:48: POC Glucose 128 H 05/01/22 16:25: POC Glucose 115 H Micro: Microbiology 04/26/22 11:29 Blood Culture (Wb) - Anticubital Left Blood Culture - Final No growth in 5 days. 04/26/22 10:16 Blood Culture (Wb) - Venous Blood Culture - Final No growth in 5 days. ABG Data ABG results: ABG 05/01/22 11:39 Specimen Type ART Sample Site R Radial pH 7.25 L Bicarbonate Actual 24.9 Total CO2 27 Base Excess -2 O2 Saturation 92 L ABG pCO2 56.6 H ABG pO2 75 Hussain Test Positive O2 Delivery Device Cannula Liter Flow 2.0 Rhythm Strip Rhythm Strip: A-fib Rate: 123 Ectopy: None Physical Exam Const alert and no apparent distress General Appearance: cooperative; Negative for combative or lethargic Orientation / Consciousness: awake HEENT Head and Scalp: normocephalic and atraumatic Eyes EOMs intact bilaterally General Eye: normal appearance of both eyes Neck full ROM General: trachea midline Resp normal respiratory effort and no use of accessory muscles Resp Narrative: Bipap supported Effort and Inspection: Negative for labored Cardio regular rate, regular rhythm and no murmurs Back/Spine Cervical Spine: cervical ROM normal Extremity full ROM, normal capillary refill and no clubbing, cyanosis or edema Skin no rashes or lesions noted Psych thought process normal, cooperative, affect normal, speech normal and activity/motor behavior normal Assessment & Plan Assessment/Plan (1) Dry gangrene: PLAN: -plan left AKA tomorrow if medically fit -Hgb ~ 7.5, stable; 2 uprbc on hold, will transfuse pre-op potentially depending on AM values - Charges/Coding Visit Charges Inpatient E&M: 29070 Subs Hosp L2
[2022-05-01] MEDS: traZODone 100 MG Tablet 150 MG PO (21:37)
[2022-05-01] MEDS: Juven (unflavored) Packet 1 PACKET PO (21:39)
[2022-05-01] MEDS: Mirtazapine 15 MG Tablet PO (22:11)
[2022-05-01 22:15] LABS: Bedside Glucose 124 mg/dL (74-106)
[2022-05-01] MEDS: 0.9% Saline Lock 10 ML Syringe IV (23:55)
[2022-05-01] MEDS: Morphine 2 MG/ML Syringe IV (23:55)
[2022-05-02] VITALS (25 sets, daily range): BP systolic 95–126; BP diastolic 35–88; PULSE 99–117; RESP 11–18; TEMP 36.1–36.9; O2SAT 93–100; BMI 30.7
--- NOTE | 2022-05-02 05:55 | EKG12_ITS ---
Test Reason : am ekg Blood Pressure : / mmHG Vent. Rate : 102 BPM Atrial Rate : 340 BPM P-R Int : 000 ms QRS Dur : 080 ms QT Int : 300 ms P-R-T Axes : 084 095 168 degrees QTc Int : 391 ms Atrial flutter with variable A-V block Rightward axis Low voltage QRS Abnormal ECG Confirmed by HENRIETTA ROSS, [place] ([id number]), photography editor JASON PEREIRA ([id number]) on 05/03/2022 10:28:03 AM Referred By: Valdemar Confirmed By:MON[place] SHRESTHA MD
[2022-05-02] MEDS: Menthol/Lanolin/Calamine/Znox 113 GM Tube 1 APPLIC TOPICAL ×2 (06:31→21:00)
[2022-05-02] MEDS: Nystatin Powder 15gm Bottle 1 APPLIC TOPICAL ×2 (06:32→21:00)
[2022-05-02 07:20] LABS: Absolute Lymphocyte Count 1.53 X10^3/uL (0.83-4.51); Absolute Neutrophil Count 8.9 X10^3/uL (2.0-7.7); Basophil# 0.04 X10^3/uL; Basophil% 0.3 % (0-1); Eosinophil# 0.27 X10^3/uL; Eosinophils% 2.3 % (0-5); Hematocrit 26.2 % (37-47); Hemoglobin 7.5 g/dL (12.0-15.0); Lymphocyte # 1.53 X10^3/ul (0.83-4.51); Lymphocyte % 13.1 % (19-41); Mean Corp Hgb Conc 28.6 g/dL (32-36); Mean Corpuscular Hgb 29.8 pg (27.0-32.0); Monocyte# 0.85 X10^3/uL; Monocyte% 7.3 % (0-10); NRBC Flagged by Analyzer 0 % (0-5); Neutrophil # 8.86 X10^3/uL (2.7-7.7); Neutrophil % 76.1 % (47-70); POSITIVE MORPHOLOGY YES; Platelet Count 128 K/mm3 (150-450); RBC Distribution Width CV 18.8 % (11.6-14.6); RBC Distribution Width SD 70.8 fl (35.1-43.9); Red Blood Count 2.52 M/mm3 (4.2-5.4); White Blood Count 11.7 K/mm3 (4.4-11.0)
[2022-05-02 07:21] LABS: Differential Indicated SCAN CRITERIA MET
[2022-05-02 07:40] LABS: International Normalized Ratio 1.6
[2022-05-02 07:45] LABS: Anion Gap 6 (5-15); BUN 57 mg/dL (7-18); BUN/Creat Ratio 38.8 RATIO (10-20); Calcium,Total 9.2 mg/dL (8.5-10.1); Chloride 113 mmol/L (98-107); Creatinine, Serum 1.47 mg/dL (0.55-1.02); EST Glomerular Filtration Rate 38 mL/min (>60); Est Glom Filt Rate - Afr Amer 46 mL/min (>60); Estimated Creatinine Clearance 32.51 ml/min; Glucose 146 mg/dL (74-106); Potassium 4.3 mmol/L (3.5-5.1); Sodium Level 140 mmol/L (136-145)
[2022-05-02 07:47] LABS: Anisocytosis 1+
[2022-05-02 08:00] LABS: Bedside Glucose 117 mg/dL (74-106)
[2022-05-02] MEDS: Pantoprazole Sodium 40 MG Tablet PO (10:08)
[2022-05-02] MEDS: Metoprolol(XL)Succ 50 MG Tablet PO (10:08)
[2022-05-02] MEDS: Lactated Ringers 1,000 ML 15 ML IV ×2 (10:47→16:22)
--- NOTE | 2022-05-02 11:21 | NURSING ---
Gave report to Lilian BOURGEOIS in ICU
--- NOTE | 2022-05-02 11:23 | PN_ITS ---
Subjective Subjective Patient seen and examined. She was on BIPAP today. She was able to wake up and communicate though. SHe was placed on the BIPAP yesterday after ABG showed elevated pCO2. She had no complaints and denied any fever, chills, cough, chest pain, palpitations, dizziness, nausea, vomiting or diarrhea. Review of systems is otherwise negative. She has otherwise rmained hemodynamically stable. Objective Data Objective Data Vital Signs: Vital Signs Temp Pulse Resp BP Pulse Ox O2 Del Method O2 Flow Rate 97.6 F L 106 H 16 107/79 98 Bi-pap 2 05/02/22 10:08 05/02/22 10:08 05/02/22 10:08 05/02/22 10:08 05/02/22 10:08 05/02/22 10:08 05/01/22 23:00 FiO2 30 05/02/22 10:08 Oxygen Flow Rate (L/min) 2 Oxygen Delivery Method Bi-pap Weight: 184 lb 8.43 oz Body Mass Index (BMI) 30.7 Intake & Output: Intake and Output for Last 24 Hours 04/30/22 05/01/22 05/02/22 23:59 23:59 23:59 Intake Total 1345 / 1345 170 / 610 440 / 440 Balance 1345 / 1345 170 / 610 440 / 440 Lab / Micro Data Result Diagrams: 05/02/22 07:10 05/02/22 07:10 Labs: Laboratory Results - last 24 hr 05/01/22 04:53: TSH 6.37 H 05/01/22 11:48: POC Glucose 128 H 05/01/22 16:25: POC Glucose 115 H 05/01/22 18:30: Blood Type O NEGATIVE, Antibody Screen NEGATIVE, Crossmatch See Detail 05/01/22 21:35: POC Glucose 124 H 05/02/22 07:10: PT 19.0 H, INR 1.6 05/02/22 07:10: WBC 11.7 H, RBC 2.52 L, Hgb 7.5 L, Hct 26.2 L, MCV 104.0 H, MCH 29.8, MCHC 28.6 L, RDW Std Deviation 70.8 H, RDW Coeff of Magen 18.8 H, Plt Count 128 L, MPV 10.0, Immature Gran % (Auto) 0.900, Neut % (Auto) 76.1 H, Lymph % (Auto) 13.1 L, [place] % (Auto) 7.3, Eos % (Auto) 2.3, Baso % (Auto) 0.3, Absolute Neuts (auto) 8.9 H, Absolute Lymphs (auto) 1.53, Nucleated RBC % 0, Anisocytosis 1+ 05/02/22 07:10: Sodium 140, Potassium 4.3, Chloride 113 H, Carbon Dioxide 21.0, Anion Gap 6, BUN 57 H, Creatinine 1.47 H, Estim Creat Clear Calc 32.51, Est GFR (MDRD) Af Amer 46 L, Est GFR (MDRD) Non-Af 38 L, BUN/Creatinine Ratio 38.8 H, Glucose 146 H, Calcium 9.2 05/02/22 07:42: POC Glucose 117 H Micro: Microbiology 04/26/22 11:29 Blood Culture (Wb) - Anticubital Left Blood Culture - Final No growth in 5 days. 04/26/22 10:16 Blood Culture (Wb) - Venous Blood Culture - Final No growth in 5 days. ABG Data ABG results: ABG 05/01/22 11:39 Specimen Type ART Sample Site R Radial pH 7.25 L Bicarbonate Actual 24.9 Total CO2 27 Base Excess -2 O2 Saturation 92 L ABG pCO2 56.6 H ABG pO2 75 Hussain Test Positive O2 Delivery Device Cannula Liter Flow 2.0 Rhythm Strip Rhythm Strip: A-fib Rate: 123 Ectopy: None Physical Exam Const Constitutional Narrative: obese General Appearance: cooperative, well kempt and well developed Orientation / Consciousness: lethargic HEENT normocephalic, head/scalp atraumatic and moist oral mucous membranes Eyes PERRL, EOMs intact bilaterally and conjunctivae normal Neck supple, no JVD, thyroid normal and no carotid bruits General: trachea midline Resp no use of accessory muscles and clear to auscultation bilaterally Resp Narrative: mildly diminished breath sounds bibasally, no wheezes or crackles. on BIPAP Auscultation: Negative for rales, rhonchi or wheezes Cardio S1 normal heart sound, S2 normal heart sound, no murmurs, no rub and no gallops Cardio Narrative: afib, rate improved today and is 106. GI normal to inspection, nondistended, normoactive bowel sounds, soft to palpation, non-tender and non-distended Extremity normal capillary refill and no clubbing, cyanosis or edema Extremity Narrative: both feet bandaged Skin no rashes or lesions noted General Skin Exam: no breakdown Neuro oriented x3, CN's II-XII intact bilaterally, no focal motor deficits and no sensory deficits noted Neuro Narrative: lethargic Sensorium / Orientation: awake Psych Psych Narrative: Patient is somnolent Assessment & Plan Assessment/Plan (1) Atrial fibrillation and flutter: (2) Acute hyperkalemia: PLAN: Plan #Hyperkalemia * resolved. K is 4.3. * * #Acute encephalopathy * patient still lethargic, though it is better since she was placed on BIPAP after ABG showed elevated pCO2 * improved a bit * on BIPAP this morning. * gabapentin and opioids on hold. * * #Hypothyroidism: on synthroid.TSH is 6.37. May need to have synthroid dose adjusted once compliance has been confirmed. #Afib: * rate improved a bit today * On metoprolol. ON eliquis. * Monitor HR and adjust meds as needed #Dry gangrene of left foot * vascular and wound surgery on board. Plan is for left above knee amputation today * #Type 2 diabetes mellitus: on lantus 25 units qhs. ISS. Accuchecks ACHS #CKD IIIB: Cr is 147, which is around her baseline. Will monitor #Chronic hypoxic respiratory failure:on 2L of oxygen by nasal canula usually but now on BIPAP #Chronic anemia: Hb is 7.5 again today. Baseline is 7-8. Likely due to CKD. Will trend hb. Transfuse if Hb <7 #Depression; on mirtazapine. DVT prophylaxis: on eliquis. Eliquis on hold for surgery today Disposition: transfer to ICU after surgery due to her respiratory status. Charges/Coding Visit Charges Inpatient E&M: 41931 Subs Hosp L3
--- NOTE | 2022-05-02 11:30 | AMP_PTH ---
PATIENT: SONA WILSON LOC: [facility] U#:[id number] AGE/SX: 67/F ROOM: [facility] RE04/26/[address]: Dr. Quynh Aldrich MD : [id number] BED: 1 DIS: 05/05/2022 SPEC #: [id number] RECD: 05/02/22 13:34 STATUS: ANNIKA MADAI #: [id number] ACE: 05/02/22 11:[address]: Izaiah Govea DEPT: SURGICAL PATHOLOGY RECD BY: Robi Cassidy ENTERED: 05/03/22 07:57 SP TYPE: Amputation OTHR DR: Dr. 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 Bone with acute osteomyelitis. Popliteal, femoral, anterior tibial, posterior tibial and dorsalis pedis vessels with atherosclerotic changes and calcifications. SJ:maria de jesus 05/08/2022 MICROSCOPIC DESCRIPTION Slides are reviewed. GROSS DESCRIPTION Received in fixative is one container labeled with the patient's name and designated left leg. The specimen consists of an above knee amputation of left lower extremity. It measures from the posterior surface of the knee to heel 43.0 cm and posterior surface of the knee to posterior cutaneous margin 7.0 cm in length, heel to second toe 21.0 cm in length. The posterior cutaneous margin is 4.0 cm below the anterior cutaneous margin. 5 cm long portion of the femur is projecting above the anterior cutaneous margin. Focal area of ulceration is noted on the heel measuring 1.5 cm in greatest dimension. Second area of ulceration is noted just above the heel measuring 3.0 cm in greatest dimension. The great toe is absent. Extensive area of gangrenous necrosis is noted involving the second, third and fourth toes at the dorsal and plantar surfaces and also the dorsal, medial and plantar surface of the foot measuring 10.0 x 7.0 cm. Femoral vessel and popliteal vessel, anterior tibial vessel, posterior tibial vessel and dorsalis pedis vessels are dissected. The skin on the anterior surface shows scaly surfaces consistent with status dermatitis. The posterior tibial vessel, anterior tibial vessels, femoral vessel and popliteal vessel shows indurated areas and cut with gritty sensation. Crate Maker sections are submitted as follows: 1 - cutaneous and skeletal muscle resection margin, 2??bone marrow at the resection margin, 3 - ulcerated and gangrenous area, 4 - popliteal and femoral vessels, 5 - anterior tibial vessels, 6 - posterior tibial vessels, 7 - dorsalis pedis vessels, 8-11 - bone underneath ulcerated and gangrenous areas. Cassettes 4-10 are submitted after decalcification. / SJ:maria de jesus 05/03/2022 TC:2 CPT: 86957, 86670
[2022-05-02] MEDS: Cefazolin 2 GM in 0.9% Normal Saline 100 ML IV (12:10)
--- NOTE | 2022-05-02 14:19 | PCM.OPRPT ---
Report of Operation Date of Procedure: 05/02/22 Pre-Operative Diagnosis: gangrene left lower extremity Post-Operative Diagnosis: same Surgery/Procedure Performed:: left above knee amputation Surgeon: Izaiah Govea Type of Anesthesia: General Estimated Blood Loss (mL): 500 Description of Procedure: HPI: Patient is a 67-year-old female with a left foot with progressive dry gangrene not unreconstructable distal peripheral vascular disease. She presents now for above-knee amputation. Description of procedure: Upon obtaining informed consent and verification correct patient procedure site the patient was taken to the operating room she was placed under general anesthesia. She was then positioned prepped and draped in usual sterile fashion timeout was performed. [place] incision was made 1 hand width above the patella. Bovie electrocautery was dissect down through subcutaneous tissue down the level of fascia and the fascia was incised. Anterior muscle tissue was divided with Bovie and on the medial aspect the deeper fascia incised exposing the neurovascular bundle. Sharp dissection was then used to dissect free the femoral vein and superficial femoral artery to then clamped and divided. These were then oversewn with running 5-0 Prolene each individually. After clamps removed satisfactory stasis was noted. We then turned our attention to the posterior musculature which was divided with Bovie leaving only the remnant of the neurovascular bundle including the nerve and the femur intact. This point a periosteal elevator was used to mobilize the soft tissue adherent to the femur and was then divided with a reciprocating saw. The nerve was then injected with quarter percent Marcaine ligated with a silk tie and divided allowing to retract up into the musculature. The specimen was then passed off the field and the wound inspected for hemostasis. A pair of anterior and lateral osteotomies were created and myodesis performed of the posterior and medial musculature with 1 PDS suture. The wound was then irrigated and inspected for hemostasis and then closed with 2-0 Vicryl followed by 3-0 nylon for the skin. Dry sterile dressing was then applied and the patient was taken to the recovery room with anticipated admission to the intensive care unit for hemodynamic and respiratory support.
[2022-05-02] MEDS: Insulin Lispro 100 UNIT/ML INSULN.PEN SC ×2 (16:23→20:58)
[2022-05-02] MEDS: Morphine 2 MG/ML Syringe IV (16:29)
[2022-05-02 18:35] LABS: Bedside Glucose 153 mg/dL (74-106)
[2022-05-02] MEDS: Cefazolin 1 GM/50 ML BAG IV (20:58)
[2022-05-03] VITALS (31 sets, daily range): BP systolic 80–120; BP diastolic 53–85; PULSE 97–114; RESP 8–22; TEMP 36.4–37.1; O2SAT 96–100; BMI 32.3
[2022-05-03] MEDS: Morphine 2 MG/ML Syringe IV ×4 (00:56→11:40)
[2022-05-03] MEDS: 0.9% Saline Lock 10 ML Syringe IV ×2 (00:56→05:22)
[2022-05-03 03:21] LABS: Absolute Lymphocyte Count 0.86 X10^3/uL (0.83-4.51); Absolute Neutrophil Count 12.1 X10^3/uL (2.0-7.7); Basophil# 0.02 X10^3/uL; Basophil% 0.1 % (0-1); Hematocrit 29.3 % (37-47); Hemoglobin 8.5 g/dL (12.0-15.0); Lymphocyte # 0.86 X10^3/ul (0.83-4.51); Lymphocyte % 6.4 % (19-41); Mean Corpuscular Hgb 29.5 pg (27.0-32.0); Mean Corpuscular Volume 101.7 fL (81-99); Mean Platelet Vol. 10.3 fl (6.2-12.0); Monocyte# 0.39 X10^3/uL; Monocyte% 2.9 % (0-10); NRBC Flagged by Analyzer 0 % (0-5); Neutrophil # 12.08 X10^3/uL (2.7-7.7); Neutrophil % 89.4 % (47-70); POSITIVE MORPHOLOGY YES; Platelet Count 150 K/mm3 (150-450); RBC Distribution Width CV 19.7 % (11.6-14.6); RBC Distribution Width SD 70.4 fl (35.1-43.9); Red Blood Count 2.88 M/mm3 (4.2-5.4); White Blood Count 13.5 K/mm3 (4.4-11.0)
[2022-05-03 03:21] LABS: Bedside Glucose 181 mg/dL (74-106)
[2022-05-03 03:30] LABS: International Normalized Ratio 1.6; Prothrombin Time (Protime)PT. 18.4 SECONDS (11.7-14.9)
[2022-05-03 03:34] LABS: Anion Gap 5 (5-15); BUN 53 mg/dL (7-18); BUN/Creat Ratio 38.7 RATIO (10-20); Calcium,Total 9.3 mg/dL (8.5-10.1); Chloride 112 mmol/L (98-107); Creatinine, Serum 1.37 mg/dL (0.55-1.02); EST Glomerular Filtration Rate 41 mL/min (>60); Est Glom Filt Rate - Afr Amer 50 mL/min (>60); Estimated Creatinine Clearance 34.88 ml/min; Glucose 184 mg/dL (74-106); Potassium 4.8 mmol/L (3.5-5.1); Sodium Level 143 mmol/L (136-145)
[2022-05-03 03:50] LABS: Differential Indicated SCAN CRITERIA MET
[2022-05-03 03:55] LABS: Anisocytosis 2+; Macrocytosis 1+
[2022-05-03] MEDS: Cefazolin 1 GM/50 ML BAG IV ×2 (05:21→13:10)
[2022-05-03] MEDS: Menthol/Lanolin/Calamine/Znox 113 GM Tube 1 APPLIC TOPICAL ×3 (05:22→22:03)
[2022-05-03] MEDS: Nystatin Powder 15gm Bottle 1 APPLIC TOPICAL ×3 (05:22→22:03)
[2022-05-03] MEDS: Levothyroxine 25 MCG TABLET PO (05:23)
[2022-05-03] MEDS: Levothyroxine 100 MCG Tablet PO (05:23)
[2022-05-03] MEDS: Insulin Lispro 100 UNIT/ML INSULN.PEN 10 UNIT SC ×2 (07:47→11:39)
[2022-05-03] MEDS: Insulin Lispro 100 UNIT/ML INSULN.PEN SC (07:47)
[2022-05-03] MEDS: Metoprolol(XL)Succ 50 MG Tablet PO (07:48)
[2022-05-03] MEDS: Ferrous Sulfate 325 MG Tablet PO (07:48)
[2022-05-03] MEDS: Paroxetine 20 MG Tablet PO (07:48)
[2022-05-03] MEDS: Pantoprazole Sodium 40 MG Tablet PO ×2 (07:49→22:05)
[2022-05-03] MEDS: Polyethylene Glycol 3350 17 GM PACKET PO (07:49)
[2022-05-03] MEDS: Juven (unflavored) Packet 1 PACKET PO ×2 (07:49→22:05)
[2022-05-03] MEDS: Aspirin E.C. 81 MG Tablet PO (07:49)
[2022-05-03] MEDS: Acetaminophen 325 MG Tablet 650 MG PO (07:52)
[2022-05-03 08:10] LABS: Bedside Glucose 161 mg/dL (74-106)
--- NOTE | 2022-05-03 10:08 | PN_ITS ---
Subjective Subjective Patient seen and examined. She had left AKA yesterday and [facility] post surgery for monitoring due to her respiratory status. She was more alert this morning and kept complaining of pain in her left leg, which is likely due to phantom pain. She is on 2L of oxygen. Review of systems is otherwise nega tive. Objective Data Objective Data Vital Signs: Vital Signs Temp Pulse Resp BP Pulse Ox O2 Del Method O2 Flow Rate 97.6 F L 109 H 22 H 93/62 99 Nasal Cannula 2 05/03/22 09:00 05/03/22 10:00 05/03/22 10:00 05/03/22 10:00 05/03/22 10:00 05/03/22 10:00 05/03/22 10:00 FiO2 30 05/03/22 00:00 Oxygen Flow Rate (L/min) 2 Oxygen Delivery Method Nasal Cannula Weight: 193 lb 12.581 oz Body Mass Index (BMI) 32.3 Intake & Output: Intake and Output for Last 24 Hours 05/01/22 05/02/22 05/03/22 23:59 23:59 23:59 Intake Total 170 / 610 683.75 / 683.75 170 / 170 Output Total 400 / 750 550 / 550 Balance 170 / 610 283.75 / -66.25 -380 / -380 Lab / Micro Data Result Diagrams: 05/03/22 03:10 05/03/22 03:10 Labs: Laboratory Results - last 24 hr 05/01/22 18:30: Blood Type O NEGATIVE, Antibody Screen NEGATIVE, Crossmatch See Detail 05/02/22 16:21: POC Glucose 153 H 05/02/22 20:54: POC Glucose 181 H 05/03/22 03:10: PT 18.4 H, INR 1.6 05/03/22 03:10: WBC 13.5 H, RBC 2.88 L, Hgb 8.5 L, Hct 29.3 L, MCV 101.7 H, MCH 29.5, MCHC 29.0 L, RDW Std Deviation 70.4 H, RDW Coeff of Magen 19.7 H, Plt Count 150, MPV 10.3, Immature Gran % (Auto) 1.200 H, Neut % (Auto) 89.4 H, Lymph % (Auto) 6.4 L, [place] % (Auto) 2.9, Eos % (Auto) 0.0, Baso % (Auto) 0.1, Absolute Neuts (auto) 12.1 H, Absolute Lymphs (auto) 0.86, Nucleated RBC % 0, Anisocyt osis 2+, Macrocytosis 1+ 05/03/22 03:10: Sodium 143, Potassium 4.8, Chloride 112 H, Carbon Dioxide 26.0, Anion Gap 5, BUN 53 H, Creatinine 1.37 H, Estim Creat Clear Calc 34.88, Est GFR (MDRD) Af Amer 50 L, Est GFR (MDRD) Non-Af 41 L, BUN/Creatinine Ratio 38.7 H, Glucose 184 H, Calcium 9.3 05/03/22 07:46: POC Glucose 161 H Micro: Microbiology 04/26/22 11:29 Blood Culture (Wb) - Anticubital Left Blood Culture - Final No growth in 5 days. 04/26/22 10:16 Blood Culture (Wb) - Venous Blood Culture - Final No growth in 5 days. Rhythm Strip Rhythm Strip: A-fib Rate: 123 Ectopy: None Physical Exam Const alert and oriented x3 Constitutional Narrative: obese, more alert today. General Appearance: cooperative, well kempt and well developed HEENT normocephalic, head/scalp atraumatic and moist oral mucous membranes Eyes PERRL, EOMs intact bilaterally and conjunctivae normal Neck supple, no JVD, thyroid normal and no carotid bruits General: trachea midline Resp no retractions, no use of accessory muscles and clear to auscultation bilaterally Resp Narrative: mildly diminished breath sounds bibasally, no wheezes or crackles. on 2L of oxygen by nasal canula Auscultation: Negative for rales, rhonchi or wheezes Cardio S1 normal heart sound, S2 normal heart sound, no murmurs, no rub and no gallops Cardio Narrative: afib, rate improved today and is 106. GI normal to inspection, nondistended, normoactive bowel sounds, soft to palpation, non-tender and non-distended Extremity normal capillary refill and no clubbing, cyanosis or edema Extremity Narrative: left AKA stump in clean dressing Skin no rashes or lesions noted Neuro oriented x3, CN's II-XII intact bilaterally, no focal motor deficits and no sensory deficits noted Neuro Narrative: lethargic Sensorium / Orientation: awake, alert and oriented to person Speech: speech normal Psych affect normal Psych Narrative: Patient is more alert today Assessment & Plan Assessment/Plan (1) Atrial fibrillation and flutter: (2) Acute hyperkalemia: PLAN: Plan #Hyperkalemia * resolved. K is 4.3. 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 * today is POD 1. * patient is stable * management as per vascular surgery * #Acute encephalopathy * has improved today and she is much more communicative. * gabapentin and opioids on hold due to encephalopathy * * #Hypothyroidism: * on synthroid.TSH is 6.37. * May need to have synthroid dose adjusted once compliance has been confirmed. #Afib: * rate improved * On metoprolol. ON eliquis. * Monitor HR and adjust meds as needed * #Type 2 diabetes mellitus: on lantus 25 units qhs. ISS. Accuchecks ACHS #CKD IIIB: Cr is 1.37, which is around her baseline. Will monitor #Chronic hypoxic respiratory failure:on 2L of oxygen by nasal canula usually but now on BIPAP #Chronic anemia: Hb is 8.5 again today. Baseline is 7-8. Likely due to CKD. Will trend hb. Transfuse if Hb <7 #Depression; on mirtazapine. DVT prophylaxis: on eliquis. Eliquis was held for surgery. To resume when ok with vascular surgery Disposition: transfer to PCU Charges/Coding Visit Charges Inpatient E&M: 28834 Subs Hosp L2
[2022-05-03 11:46] LABS: Bedside Glucose 142 mg/dL (74-106)
--- NOTE | 2022-05-03 12:06 | CHAPLAIN ---
Type of Pastoral Visit _x__ Initial Visit ___ Follow-up Visit ___ On-call Visit ___ General Patient Visit ___ Spiritual Assessment ___ Family Conference ___ Bereavement ___ Rapid Response ___ Code Blue ___ Other (describe below) Pastoral Care Referral From _x__ Patient ___ Family ___ Nurse ___ Physician ___ Marshmallow Runner ___ Band Saw Filer ___ Other (describe below) Sacrament/Intervention _x__ Active listening ___ Anointing ___ Rastafarian ___ Bereavement ___ Communion ___ Charo exploration ___ ___ Life review _x__ Prayer ___ Reconciliation ___ Sacrament of Sick _x__ Supportive presence ___ Wedding ___ Other (describe below) Pastoral Comments patient was easily awakened to her name; pt responds slowly to questions and her speech at times is unclear; yet pt is able to state that she is thirsty and to ask if her family was here; pt asks about her feet; pt welcomes presence and prayer; visit is brief to encourage rest
--- NOTE | 2022-05-03 13:03 | CASEMGMT ---
GREG sent updates to [employer] via [employer]. Clare Kaufman [employer]CREW[employer] HELICOPTER
[2022-05-03 15:30] LABS: Bedside Glucose 119 mg/dL (74-106)
--- NOTE | 2022-05-03 16:48 | PCM.PN.SRG ---
Subjective Subjective Still with variable alertness through day. Currently awakens to verbal, answers questions. Pain controlled. On Bipap. Objective Data Objective Data Vital Signs: Vital Signs Temp Pulse Resp BP Pulse Ox O2 Del Method O2 Flow Rate 98.4 F 102 H 8 L 89/62 L 97 Bi-pap 2 05/03/22 12:00 05/03/22 16:00 05/03/22 16:00 05/03/22 16:00 05/03/22 16:00 05/03/22 16:00 05/03/22 16:00 FiO2 30 05/03/22 16:00 Oxygen Flow Rate (L/min) 2 Oxygen Delivery Method Bi-pap Weight: 193 lb 12.581 oz Body Mass Index (BMI) 32.3 Intake & Output: Intake and Output for Last 24 Hours 05/01/22 05/02/22 05/03/22 23:59 23:59 23:59 Intake Total 170 / 610 683.75 / 683.75 220 / 220 Output Total 400 / 750 750 / 750 Balance 170 / 610 283.75 / -66.25 -530 / -530 Lab / Micro Data Result Diagrams: 05/03/22 03:10 05/03/22 03:10 Labs: Laboratory Results - last 24 hr 05/01/22 18:30: Crossmatch See Detail 05/02/22 16:21: POC Glucose 153 H 05/02/22 20:54: POC Glucose 181 H 05/03/22 03:10: PT 18.4 H, INR 1.6 05/03/22 03:10: WBC 13.5 H, RBC 2.88 L, Hgb 8.5 L, Hct 29.3 L, MCV 101.7 H, MCH 29.5, MCHC 29.0 L, RDW Std Deviation 70.4 H, RDW Coeff of Magen 19.7 H, Plt Count 150, MPV 10.3, Immature Gran % (Auto) 1.200 H, Neut % (Auto) 89.4 H, Lymph % (Auto) 6.4 L, [place] % (Auto) 2.9, Eos % (Auto) 0.0, Baso % (Auto) 0.1, Absolute Neuts (auto) 12.1 H, Absolute Lymphs (auto) 0.86, Nucleated RBC % 0, Anisocytosis 2+, Macrocytosis 1+ 05/03/22 03:10: Sodium 143, Potassium 4.8, Chloride 112 H, Carbon Dioxide 26.0, Anion Gap 5, BUN 53 H, Creatinine 1.37 H, Estim Creat Clear Calc 34.88, Est GFR (MDRD) Af Amer 50 L, Est GFR (MDRD) Non-Af 41 L, BUN/Creatinine Ratio 38.7 H, Glucose 184 H, Calcium 9.3 05/03/22 07:46: POC Glucose 161 H 05/03/22 11:27: POC Glucose 142 H 05/03/22 15:10: POC Glucose 119 H Micro: Microbiology 04/26/22 11:29 Blood Culture (Wb) - Anticubital Left Blood Culture - Final No growth in 5 days. 04/26/22 10:16 Blood Culture (Wb) - Venous Blood Culture - Final No growth in 5 days. Rhythm Strip Rhythm Strip: A-fib Rate: 123 Ectopy: None Assessment & Plan Assessment/Plan (1) Dry gangrene: PLAN: -POD # 1 left AKA -cont dressing, will remove Sunday -hgb stable
[2022-05-03] MEDS: traZODone 100 MG Tablet 150 MG PO (22:04)
[2022-05-03 22:05] LABS: Bedside Glucose 108 mg/dL (74-106)
[2022-05-03] MEDS: Glucerna Shake 120 ML LIQUID PO (22:05)
[2022-05-03] MEDS: Mirtazapine 15 MG Tablet PO (22:05)
--- NOTE | 2022-05-03 22:13 | PCM.HOSP.N ---
Hospitalist Note Patient without sera intake with BS primarily low 100. Will hold long-acting while minimal intake if low BS and will d/c scheduled TID insulin for now and continue ISS.
[2022-05-04] VITALS (22 sets, daily range): BP systolic 92–118; BP diastolic 66–97; PULSE 102–114; RESP 10–18; TEMP 36.4–37.1; O2SAT 96–100
[2022-05-04] MEDS: Nystatin Powder 15gm Bottle 1 APPLIC TOPICAL ×3 (05:45→22:09)
[2022-05-04] MEDS: Gabapentin 100 MG Capsule PO ×2 (05:45→22:17)
[2022-05-04] MEDS: Menthol/Lanolin/Calamine/Znox 113 GM Tube 1 APPLIC TOPICAL ×3 (05:45→22:08)
[2022-05-04] MEDS: Levothyroxine 100 MCG Tablet PO (05:46)
[2022-05-04] MEDS: Levothyroxine 25 MCG TABLET PO (05:46)
[2022-05-04] MEDS: Morphine 2 MG/ML Syringe IV (06:16)
[2022-05-04] MEDS: Aspirin E.C. 81 MG Tablet PO (08:12)
[2022-05-04] MEDS: Polyethylene Glycol 3350 17 GM PACKET PO (08:12)
[2022-05-04] MEDS: Ferrous Sulfate 325 MG Tablet PO (08:12)
[2022-05-04] MEDS: Juven (unflavored) Packet 1 PACKET PO (08:12)
[2022-05-04] MEDS: Pantoprazole Sodium 40 MG Tablet PO ×2 (08:12→22:08)
[2022-05-04] MEDS: Metoprolol(XL)Succ 50 MG Tablet PO ×2 (08:13→22:07)
[2022-05-04] MEDS: Paroxetine 20 MG Tablet PO (08:13)
[2022-05-04 08:35] LABS: Bedside Glucose 126 mg/dL (74-106)
--- NOTE | 2022-05-04 11:59 | CASEMGMT ---
GREG sent updates to [facility] via [employer]. GREG also called Stephanie and let her know updates were sent via [employer]. GREG also let Stephanie know that patient may return over the weekend. Clare Kaufman SLICE PLUG CUTTER OPERATOR BROWN
--- NOTE | 2022-05-04 12:12 | PN_ITS ---
Subjective Subjective Patient seen and examined this morning. She was lethargic but would wake up and communicate. She was eating breakfast. She had no active complaints. Her blood sugars were running a bit low overnight so her long-acting insulin was held. Review of systems otherwise negative. Objective Data Objective Data Vital Signs: Vital Signs Temp Pulse Resp BP Pulse Ox O2 Del Method O2 Flow Rate 98.1 F 114 H 16 103/77 96 Nasal Cannula 2 05/04/22 11:30 05/04/22 11:30 05/04/22 11:30 05/04/22 11:30 05/04/22 11:30 05/04/22 11:30 05/04/22 11:30 FiO2 30 05/04/22 04:53 Oxygen Flow Rate (L/min) 2 Oxygen Delivery Method Nasal Cannula Weight: 193 lb 12.581 oz Body Mass Index (BMI) 32.3 Intake & Output: Intake and Output for Last 24 Hours 05/02/22 05/03/22 05/04/22 23:59 23:59 23:59 Intake Total 683.75 / 683.75 220 / 220 715.5 / 715.5 Output Total 400 / 750 750 / 750 Balance 283.75 / -66.25 -530 / -530 715.5 / 715.5 Lab / Micro Data Result Diagrams: 05/03/22 03:10 05/03/22 03:10 Labs: Laboratory Results - last 24 hr 05/03/22 15:10: POC Glucose 119 H 05/03/22 21:44: POC Glucose 108 H 05/04/22 08:10: POC Glucose 126 H Micro: Microbiology 04/26/22 11:29 Blood Culture (Wb) - Anticubital Left Blood Culture - Final No growth in 5 days. 04/26/22 10:16 Blood Culture (Wb) - Venous Blood Culture - Final No growth in 5 days. Rhythm Strip Rhythm Strip: A-fib Rate: 123 Ectopy: None Physical Exam Const alert and oriented x3 Constitutional Narrative: obese, a bit lethargic, but arousable. Appears to be at her baseline General Appearance: cooperative, well kempt and well developed Orientation / Consciousness: lethargic HEENT normocephalic, head/scalp atraumatic and moist oral mucous membranes Eyes PERRL, EOMs intact bilaterally and conjunctivae normal Neck supple, no JVD, thyroid normal and no carotid bruits General: trachea midline Resp normal respiratory effort, no retractions, no use of accessory muscles and clear to auscultation bilaterally Resp Narrative: mildly diminished breath sounds bibasally, no wheezes or crackles. on 2L of oxygen by nasal canula Auscultation: Negative for rales, rhonchi or wheezes Cardio S1 normal heart sound, S2 normal heart sound, no murmurs, no rub and no gallops Cardio Narrative: afib, mildly tachcyardic GI normal to inspection, nondistended, normoactive bowel sounds, soft to palpation, non-tender and non-distended Extremity normal capillary refill and no clubbing, cyanosis or edema Extremity Narrative: left AKA stump in clean dressing Skin no rashes or lesions noted General Skin Exam: no breakdown Neuro oriented x3, CN's II-XII intact bilaterally, no focal motor deficits and no sensory deficits noted Neuro Narrative: lethargic Sensorium / Orientation: awake, alert and oriented to person Speech: speech normal Psych affect normal Psych Narrative: Patient is more alert today Assessment & Plan Assessment/Plan (1) Atrial fibrillation and flutter: (2) Acute hyperkalemia: PLAN: Plan #Hyperkalemia * resolved. K is 4.3. 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 * today is POD 2. * patient is stable * management as per vascular surgery * #Acute encephalopathy * appears to be at her baseline. Is still a bit lethargic but responds to voice and able to communicate. * gabapentin and opioids on hold due to encephalopathy * * #Hypothyroidism: * on synthroid.TSH is 6.37. * will continue current synthroid dose of 100mcg daily. * to repeat TSH once out of the hospital and for PCP and marshmallow maker to adjust dose as needed #Afib: * rate still fluctuates, and was mildly tachycardic this morning. * On metoprolol 50mg bid. ON eliquis. * Monitor HR and adjust meds as needed * #Type 2 diabetes mellitus: * Blood sugars were running low this morning so long-acting Lantus was held this morning * Maintain on insulin sliding scale. Accu-Cheks ACHS. #CKD IIIB: stable #Chronic hypoxic respiratory failure:on 2L of oxygen by nasal canula usually but now on BIPAP #Chronic anemia: Hemoglobin has remained stable around 8-9. Will monitor and trend. Transfuse if hemoglobin less than 7 #Depression; on mirtazapine. DVT prophylaxis: on eliquis. resume eliquis Disposition: transfer to PCU Charges/Coding Visit Charges Inpatient E&M: 84735 Subs Hosp L2
[2022-05-04 15:15] LABS: Absolute Neutrophil Count 13.1 X10^3/uL (2.0-7.7); Basophil# 0.06 X10^3/uL; Basophil% 0.4 % (0-1); Eosinophil# 0.09 X10^3/uL; Eosinophils% 0.6 % (0-5); Hematocrit 30.4 % (37-47); Hemoglobin 8.9 g/dL (12.0-15.0); Lymphocyte % 7.8 % (19-41); Mean Corp Hgb Conc 29.3 g/dL (32-36); Mean Corpuscular Hgb 29.6 pg (27.0-32.0); Mean Platelet Vol. 10.6 fl (6.2-12.0); Monocyte% 5.2 % (0-10); NRBC Flagged by Analyzer 0 % (0-5); Neutrophil # 13.11 X10^3/uL (2.7-7.7); Neutrophil % 85.3 % (47-70); POSITIVE MORPHOLOGY YES; Platelet Count 140 K/mm3 (150-450); RBC Distribution Width CV 19.2 % (11.6-14.6); Red Blood Count 3.01 M/mm3 (4.2-5.4); White Blood Count 15.4 K/mm3 (4.4-11.0)
[2022-05-04 15:17] LABS: Differential Indicated SCAN CRITERIA MET
[2022-05-04 15:35] LABS: BUN 62 mg/dL (7-18); Creatinine, Serum 1.67 mg/dL (0.55-1.02); Glucose 147 mg/dL (74-106)
[2022-05-04 15:36] LABS: Anion Gap 6 (5-15); BUN/Creat Ratio 37.1 RATIO (10-20); Calcium,Total 8.9 mg/dL (8.5-10.1); Chloride 112 mmol/L (98-107); EST Glomerular Filtration Rate 33 mL/min (>60); Est Glom Filt Rate - Afr Amer 40 mL/min (>60); Estimated Creatinine Clearance 28.61 ml/min; Potassium 4.8 mmol/L (3.5-5.1); Sodium Level 143 mmol/L (136-145)
[2022-05-04 16:43] LABS: Anisocytosis 2+; Macrocytosis 1+; Microcytosis 1+
[2022-05-04 18:05] LABS: Bedside Glucose 127 mg/dL (74-106)
[2022-05-04 21:31] LABS: Lactic Acid 0.5 mmol/L (0.4-1.9)
[2022-05-04] MEDS: traZODone 100 MG Tablet 150 MG PO (22:08)
[2022-05-04] MEDS: APIXABAN 5 MG TABLET PO (22:08)
[2022-05-04] MEDS: Mirtazapine 15 MG Tablet PO (22:08)
[2022-05-04] MEDS: 0.9% Saline Lock 10 ML Syringe IV (22:20)
[2022-05-04] MEDS: Insulin Glargine-YFGN 100 UNIT/ML Pen 25 UNIT SC (22:41)
[2022-05-04 23:00] LABS: Bedside Glucose 143 mg/dL (74-106)
[2022-05-05] VITALS (7 sets, daily range): BP systolic 94–113; BP diastolic 48–70; PULSE 100–110; RESP 16–18; TEMP 36.2–36.9; O2SAT 96–99; BMI 33.1
--- NOTE | 2022-05-05 01:09 | NURSING ---
Pt triggered the Sepsis Alert prior to shift change 05/04, Dr. Rodriguez notified by Norah Philippe RN, and a Lactic Acid was ordered. Lactic came back as 0.5, aware, no interventions indicated at this time.
[2022-05-05 03:45] LABS: Bedside Glucose 127 mg/dL (74-106)
[2022-05-05 05:15] LABS: Absolute Lymphocyte Count 1.13 X10^3/uL (0.83-4.51); Absolute Neutrophil Count 9.5 X10^3/uL (2.0-7.7); Basophil# 0.04 X10^3/uL; Basophil% 0.3 % (0-1); Eosinophil# 0.13 X10^3/uL; Eosinophils% 1.1 % (0-5); Hemoglobin 8.1 g/dL (12.0-15.0); Lymphocyte # 1.13 X10^3/ul (0.83-4.51); Lymphocyte % 9.8 % (19-41); Mean Corp Hgb Conc 28.9 g/dL (32-36); Mean Corpuscular Hgb 29.5 pg (27.0-32.0); Mean Corpuscular Volume 101.8 fL (81-99); Mean Platelet Vol. 10.4 fl (6.2-12.0); Monocyte% 5.2 % (0-10); NRBC Flagged by Analyzer 0 % (0-5); Neutrophil # 9.54 X10^3/uL (2.7-7.7); Neutrophil % 82.9 % (47-70); POSITIVE MORPHOLOGY YES; Platelet Count 139 K/mm3 (150-450); RBC Distribution Width CV 18.6 % (11.6-14.6); RBC Distribution Width SD 67.8 fl (35.1-43.9); Red Blood Count 2.75 M/mm3 (4.2-5.4); White Blood Count 11.5 K/mm3 (4.4-11.0)
[2022-05-05 05:25] LABS: Differential Indicated SCAN CRITERIA MET
[2022-05-05 05:36] LABS: Anisocytosis 2+; Macrocytosis 1+; Platelet Estimate SLT DEC (ADEQ)
[2022-05-05 05:45] LABS: Anion Gap 4 (5-15); BUN 63 mg/dL (7-18); BUN/Creat Ratio 43.2 RATIO (10-20); Chloride 111 mmol/L (98-107); Creatinine, Serum 1.46 mg/dL (0.55-1.02); EST Glomerular Filtration Rate 38 mL/min (>60); Est Glom Filt Rate - Afr Amer 46 mL/min (>60); Estimated Creatinine Clearance 32.73 ml/min; Glucose 137 mg/dL (74-106); Potassium 4.3 mmol/L (3.5-5.1); Sodium Level 143 mmol/L (136-145)
[2022-05-05] MEDS: Menthol/Lanolin/Calamine/Znox 113 GM Tube 1 APPLIC TOPICAL ×2 (06:43→13:52)
[2022-05-05] MEDS: Nystatin Powder 15gm Bottle 1 APPLIC TOPICAL ×2 (06:43→13:52)
[2022-05-05 06:55] LABS: Bedside Glucose 124 mg/dL (74-106)
[2022-05-05 11:50] LABS: Bedside Glucose 111 mg/dL (74-106)
--- NOTE | 2022-05-05 13:02 | CASEMGMT ---
[facility] sent a message via [employer] to send PT/OT, IV antibiotics, and face sheet so they can get pre-cert. GREG already spoke with Stephanie with [facility] letting her know PT/OT is not seeing patient as she is and has been a keshia lift. Also, patient will not be on any IV antibiotics. GREG faxed a faces sheet, but also wrote this information on the fax cover sheet. Plan: d/c back to [facility] over the weekend. Clare DASILVA
[2022-05-05] MEDS: Acetaminophen 325 MG Tablet 650 MG PO (14:11)
[2022-05-05] MEDS: Gabapentin 100 MG Capsule PO (14:11)
--- NOTE | 2022-05-05 14:14 | WOUNDNOTE ---
wound photo: left stump
--- NOTE | 2022-05-05 15:04 | TREXTCAR_ITS ---
Diet Diet Order/Speech Therapy: 05/05/22 08:56 Diet: Carbohydrate Controlled Dietary Modifications:: Sodium Restricted Is pt able to select menu?: No Diet Comments: advanced per Dr. Aldrich Routine Orders/Code Status Enema Type: Fleetz Enema Frequency: Daily PRN Suppository Type: Dulcolax 10mg Suppository Frequency: Daily PRN O2 Frequency: PRN Keep PO Greater than or Equal to (%): 90 Wound(s) COCCYX: Wound Type: SHEERING Right daigle: Wound Type: Stasis Ulcer left foot (medial foot/toes): Wound Type: nonhealing wound Dressing Change: betadine with dry dressing left heel: Wound Type: Pressure Injury Dressing Change: betadine with well padded dressing right heel: Wound Type: Pressure Injury Dressing Change: betadine with dry dressing left AKA: Wound Type: surgical incision s/p L AKA Dressing Change: Adaptic and dry dressings Therapies Weight Bearing: Weight bearing as tolerated Physical Therapy: Eval and Treat Occupational Therapy: Eval and Treat Problem/Diagnosis (1) Atrial fibrillation and flutter: Status: Inactive Code(s): I48.91 - Unspecified atrial fibrillation; I48.92 - Unspecified atrial flutter (2) Acute hyperkalemia: Status: Inactive Code(s): E87.5 - Hyperkalemia Plan #Hyperkalemia * resolved. K is 4.3. 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 * today is POD 2. * patient is stable * management as per vascular surgery * #Acute encephalopathy * appears to be at her baseline. Is still a bit lethargic but responds to voice and able to communicate. * gabapentin and opioids on hold due to encephalopathy * * #Hypothyroidism: * on synthroid.TSH is 6.37. * will continue current synthroid dose of 100mcg daily. * to repeat TSH once out of the hospital and for PCP and finish inspector to adjust dose as needed #Afib: * rate still fluctuates, and was mildly tachycardic this morning. * On metoprolol 50mg bid. ON eliquis. * Monitor HR and adjust meds as needed * #Type 2 diabetes mellitus: * Blood sugars were running low this morning so long-acting Lantus was held this morning * Maintain on insulin sliding scale. Accu-Cheks ACHS. #CKD IIIB: stable #Chronic hypoxic respiratory failure:on 2L of oxygen by nasal canula usually but now on BIPAP #Chronic anemia: Hemoglobin has remained stable around 8-9. Will monitor and trend. Transfuse if hemoglobin less than 7 #Depression; on mirtazapine. DVT prophylaxis: on eliquis. resume eliquis Disposition: transfer to PCU Allergies/Procedures Done in Hospital Allergies doxycycline Allergy (Verified 04/25/22 15:40) NEEDS FOLLOW-UP latex Allergy (Verified 04/25/22 15:40) NEEDS FOLLOW-UP Sulfa (Sulfonamide Antibiotics) Allergy (Verified 04/25/22 15:40) Anaphylaxis sulfur dioxide Allergy (Verified 04/25/22 15:40) Anaphylaxis oxycodone Adverse Reaction (Verified 04/25/22 15:40) Other makes me crazy Procedures: None Type of Care/Length of Stay Estimated LOS: Convalescent Care Less Than 30 days Type of Care Needed: Skilled Rehab Potential: Fair Prognosis: Fair Additional Orders/Day of Discharge Day of Discharge: 05/05/22 Dietary and Speech Recommendations Dietitian Recommendations/Changes: recommend advance diet as tolerated to carbohydrate controlled, sodium restricted; continue Say BID and Glucerna ONS for wound healing. Will add Ensure Clear w/ meals while on clear liquid diet. Discharge Plan Admission Admit Date/Time: 04/26/22 12:01 Primary Reason for Your Visit: gangrene of LLE Attending Provider: Quynh Aldrich Primary Care Provider: Geovanna Mott PROSTHETIC AIDES TEACHER Consulting Providers: Christophe Corbin ; Izaiah Govea Instructions Patient Instructions: Hyperkalemia Dc, ED Confusion Discharge Orders/Prescriptions Prescriptions: New metoprolol succinate 50 mg Tablet Extended Release 24 Hr 50 mg PO BID Qty: 60 2RF Continued aspirin [Adult Aspirin Regimen] 81 mg tablet,delayed release (DR/EC) 81 mg PO DAILY sennosides-docusate sodium [Senna-S] 8.6-50 mg Tablet 1 tab PO BID levothyroxine [Synthroid] 100 mcg tablet 100 mcg PO DAILY trazodone 100 mg tablet 150 mg PO QHS montelukast 10 mg tablet 10 mg PO QHS albuterol sulfate 90 mcg/actuation HFA aerosol inhaler 2 puff INHALATION Q6H PRN (Reason: Shortness Of Breath) omeprazole 40 mg Capsule,Delayed Release(Dr/Ec) 40 mg PO BID polyethylene glycol 3350 17 gram powder in packet 17 g PO DAILY ferrous sulfate [FeroSul] 325 mg (65 mg iron) tablet 325 mg PO DAILY nystatin [Nyamyc] 100,000 unit/gram powder 1 applic topical TID Protocol: *Topical Application Instructions APPLICATION INSTRUCTIONS: apply to groin tid for redness insulin lispro [Humalog KwikPen Insulin] 100 unit/mL insulin pen 10 unit subcut TIDAC paroxetine HCl [Paxil] 20 mg Tablet 20 mg PO DAILY Levemir FlexTouch U-100 Insuln 100 unit/mL (3 mL) insulin pen 25 unit SUBCUT QHS Qty: 15 0RF meloxicam 7.5 mg tablet 7.5 mg PO DAILY gabapentin 300 mg capsule 300 mg PO TID levothyroxine 25 mcg Tablet 25 mcg PO DAILY mirtazapine 15 mg tablet 15 mg PO QHS acetaminophen [Tylenol] 325 mg tablet 650 mg PO Q6H PRN (Reason: PAIN/FEVER) bumetanide 2 mg tablet 2 mg PO TID potassium chloride [Klor-Con M20] 20 mEq tablet,ER particles/crystals 20 meq PO DAILYCM Eliquis 5 mg tablet 5 mg PO BID Say (with collagen) 7-7-1.5 gram powder in packet 1 packet PO BID Discontinued metoprolol succinate 50 mg tablet extended release 24 hr 50 mg PO DAILY Referrals / Follow Up: Izaiah Govea MD [Med Staff - Active Staff] - Within 1 Week Geovanna Mott PROSTHETIC AIDES TEACHER, PROSTHETIC AIDES TEACHER-C [Primary Care Provider] - Within 1 Week Disposition Disposition (needs filled in before D/C Order can be placed): Detention Facility
--- NOTE | 2022-05-05 15:06 | DS.PCM_ITS ---
Providers Date of Admission: 04/26/22 Date of Discharge: 05/05/22 Primary Care Physician: Geovanna Mott, GROUT MACHINE TENDER-C Consultations 04/26/22 15:15 Consult: Onc/Wound/dealer sales manager Routine Comment: 04/27/22 12:11 Consult: Vascular Surgery Routine Consulting Provider: Izaiah Govea Reason for Consult: left foot gangrene EMERGENT Consult: No MD Notified: Yes Date Notified: 04/27/22 Time Notified: 12:11 Method of Notification: Verbal Reason For Visit: HYPERKALEMIA Diagnosis Discharge Diagnosis (1) Atrial fibrillation and flutter: Status: Inactive Code(s): I48.91 - Unspecified atrial fibrillation; I48.92 - Unspecified atrial flutter (2) Acute hyperkalemia: Status: Inactive Code(s): E87.5 - Hyperkalemia Plan #Hyperkalemia * resolved. K is 4.3. 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 * today is POD 2. * patient is stable * management as per vascular surgery * #Acute encephalopathy * appears to be at her baseline. Is still a bit lethargic but responds to voice and able to communicate. * gabapentin and opioids on hold due to encephalopathy * * #Hypothyroidism: * on synthroid.TSH is 6.37. * will continue current synthroid dose of 100mcg daily. * to repeat TSH once out of the hospital and for PCP and contact center team lead to adjust dose as needed #Afib: * rate still fluctuates, and was mildly tachycardic this morning. * On metoprolol 50mg bid. ON eliquis. * Monitor HR and adjust meds as needed * #Type 2 diabetes mellitus: * Blood sugars were running low this morning so long-acting Lantus was held this morning * Maintain on insulin sliding scale. Accu-Cheks ACHS. #CKD IIIB: stable #Chronic hypoxic respiratory failure:on 2L of oxygen by nasal canula usually but now on BIPAP #Chronic anemia: Hemoglobin has remained stable around 8-9. Will monitor and trend. Transfuse if hemoglobin less than 7 #Depression; on mirtazapine. DVT prophylaxis: on eliquis. resume eliquis Disposition: transfer to PCU Medications at Discharge Home Medications aspirin 81 mg tablet,delayed release (Adult Aspirin Regimen) 81 mg PO DAILY [facility] 05/17/21 levothyroxine 100 mcg tablet (Synthroid) 100 mcg PO DAILY THYROID 12/13/21 montelukast 10 mg tablet 10 mg PO QHS ALLERGIES 12/13/21 sennosides 8.6 mg-docusate sodium 50 mg tablet (Senna-S) 1 tab PO BID STOOL SOFTNER 12/13/21 trazodone 100 mg tablet 150 mg PO QHS SLEEP 12/13/21 albuterol sulfate 90 mcg/actuation aerosol inhaler 2 puff inhalation Q6H PRN Shortness Of Breath 12/19/21 ferrous sulfate 325 mg (65 mg iron) tablet (FeroSul) 325 mg PO DAILY ANEMIA 12/28/21 insulin lispro 100 unit/mL subcutaneous pen (Humalog KwikPen (U-100) Insulin) 10 unit subcut TIDAC DIABETES 12/28/21 nystatin 100,000 unit/gram topical powder (Nyamyc) 1 applic topical TID IRRITATION 12/28/21 omeprazole 40 mg capsule,delayed release 40 mg PO BID GERD 12/28/21 polyethylene glycol 3350 17 gram oral powder packet 17 g PO DAILY CONSTIPATION 12/28/21 paroxetine HCl 20 mg tablet (Paxil) 20 mg PO DAILY MOOD 01/12/22 insulin detemir U-100 100 unit/mL (3 mL) subcutaneous pen (Levemir FlexTouch U- 100 Insulin) 25 unit (0.25 mL) subcut QHS blood sugar #15 mL 02/24/22 meloxicam 7.5 mg tablet 7.5 mg PO DAILY PAIN 03/31/22 acetaminophen 325 mg tablet (Tylenol) 650 mg PO Q6H PRN PAIN/FEVER 04/26/22 apixaban 5 mg tablet (Eliquis) 5 mg PO BID BLOOD THINNER 04/26/22 arginine 7 gram-glutam 7 gram-CaHMB 1.5 yrqx-gduqm-ab-min oral pwd pkt (Say (with collagen)) 1 packet PO BID WOUND HEALING 04/26/22 bumetanide 2 mg tablet 2 mg PO TID FLUID 04/26/22 gabapentin 300 mg capsule 300 mg PO TID NERVE PAIN 04/26/22 levothyroxine 25 mcg tablet 25 mcg PO DAILY THYROID 04/26/22 mirtazapine 15 mg tablet 15 mg PO QHS MOOD 04/26/22 potassium chloride 20 mEq tablet,extended release(part/cryst) (Klor-Con M) 20 meq PO DAILYCM SUPPLEMENT 04/26/22 metoprolol succinate 50 mg tablet,extended release 24 hr 50 mg PO BID #60 tabs 05/05/22 Hospital Course Operations - (left AKA) Procedures None Summary of Care Provided Minutes Spent on Discharge: 55 Hospital Course: Patient is a 67-year-old female with a past medical history as outlined who was admitted through the ED on 04/26/2022 from her extended care facility due to lethargy and low pulse ox. She was found to be tachycardic and she was saturating at 100% on 4 L of oxygen. Labs done showed hyperkalemia with potassium of 6.3 and creatinine of 1.79. Glucose was 190 and CBC was remarkable for hemoglobin of 8.2. Chest x-ray showed persistent right lower lobe infiltrate with improved aeration at the left lung base and EKG showed A-fib with a heart rate of 123. She was given potassium depleting cocktail in the ED and was admitted to be managed for hyperkalemia, A-fib with RVR and dehydration. Of note, patient was also noted to have dry gangrene of the left foot for which wound care was consulted and eventually vascular surgery was also consulted. Vascular surgery recommended above-knee amputation of the left lower extremity and patient was agreeable to this. Her mentation did improve gradually though she remained at baseline lethargic. Hyperkalemia resolved with correction. She remained on Eliquis for her A-fib and her heart rate control improved. Her ammonia was only minimally elevated at 47. Her TSH was also slightly elevated at above 6 but she was continued on her current Synthroid dose, to follow-up on outpatient basis for TSH to be monitored. Patient was transferred to the ICU after surgery for closer monitoring due to her altered mental status. She remained stable and was transferred out of the ICU. She was discharged to senior living facility on 05/05/2022. She is follow-up with her primary care doctor and to follow-up with vascular surgery on outpatient basis. Patient seen and examined prior to discharge. He had no active complaints. He had an uneventful night. Review of systems otherwise negative. Labs and vitals reviewed. Home medication reviewed and reconciled. Physical Exam Const alert and oriented x3 Constitutional Narrative: obese, a bit lethargic, but arousable. Appears to be at her baseline General Appearance: cooperative, comfortable, well kempt and well developed Orientation / Consciousness: awake HEENT normocephalic, head/scalp atraumatic, hearing grossly normal bilaterally and moist oral mucous membranes Mouth: oral and palatal mucosa normal Eyes PERRL, EOMs intact bilaterally and conjunctivae normal Neck no lymphadenopathy, supple, no JVD, thyroid normal and no carotid bruits General: trachea midline Resp normal respiratory effort, no retractions, no use of accessory muscles and clear to auscultation bilaterally Resp Narrative: mildly diminished breath sounds bibasally, no wheezes or crackles. on 2L of oxygen by nasal canula Auscultation: Negative for rales, rhonchi or wheezes Cardio S1 normal heart sound, S2 normal heart sound, no murmurs, no rub and no gallops Cardio Narrative: afib, regular rate GI normal to inspection, nondistended, normoactive bowel sounds, soft to palpation, non-tender and non-distended Extremity normal capillary refill and no clubbing, cyanosis or edema Extremity Narrative: left AKA stump in clean dressing Skin no rashes or lesions noted General Skin Exam: no breakdown Neuro oriented x3, CN's II-XII intact bilaterally, no focal motor deficits and no sensory deficits noted Neuro Narrative: lethargic Sensorium / Orientation: awake, alert and oriented to person Speech: speech normal Psych Psych Narrative: Patient is more alert today Weight / BMI Weight Weight: 199 lb 1.239 oz Body Mass Index (BMI) 33.1 ABG / Lab / Microbiology Data Result Diagrams: 05/05/22 05:00 05/05/22 05:00 Laboratory: Laboratory Results - last 24 hr 05/01/22 18:30: Crossmatch See Detail 05/04/22 10:50: POC Glucose 127 H 05/04/22 15:00: WBC 15.4 H, RBC 3.01 L, Hgb 8.9 L, Hct 30.4 L, MCV 101.0 H, MCH 29.6, MCHC 29.3 L, RDW Std Deviation 69.0 H, RDW Coeff of Magen 19.2 H, Plt Count 140 L, MPV 10.6, Immature Gran % (Auto) 0.700, Neut % (Auto) 85.3 H, Lymph % ( Auto) 7.8 L, [place] % (Auto) 5.2, Eos % (Auto) 0.6, Baso % (Auto) 0.4, Absolute Neuts (auto) 13.1 H, Absolute Lymphs (auto) 1.20, Nucleated RBC % 0, Anisocytosis 2+, Microcytosis 1+, Macrocytosis 1+ 05/04/22 15:00: Sodium 143, Potassium 4.8, Chloride 112 H, Carbon Dioxide 25.0, Anion Gap 6, BUN 62 H, Creatinine 1.67 H, Estim Creat Clear Calc 28.61, Est GFR (MDRD) Af Amer 40 L, Est GFR (MDRD) Non-Af 33 L, BUN/Creatinine Ratio 37.1 H, Glucose 147 H, Calcium 8.9 05/04/22 17:31: POC Glucose 127 H 05/04/22 21:00: Lactic Acid 0.5 05/04/22 22:29: POC Glucose 143 H 05/05/22 05:00: WBC 11.5 H, RBC 2.75 L, Hgb 8.1 L, Hct 28.0 L, MCV 101.8 H, MCH 29.5, MCHC 28.9 L, RDW Std Deviation 67.8 H, RDW Coeff of Magen 18.6 H, Plt Count 139 L, MPV 10.4, Immature Gran % (Auto) 0.700, Neut % (Auto) 82.9 H, Lymph % (Au to) 9.8 L, [place] % (Auto) 5.2, Eos % (Auto) 1.1, Baso % (Auto) 0.3, Absolute N euts (auto) 9.5 H, Absolute Lymphs (auto) 1.13, Nucleated RBC % 0, Platelet Estimate SLT DEC, Anisocytosis 2+, Macrocytosis 1+ 05/05/22 05:00: Sodium 143, Potassium 4.3, Chloride 111 H, Carbon Dioxide 28.0, Anion Gap 4 L, BUN 63 H, Creatinine 1.46 H, Estim Creat Clear Calc 32.73, Est GFR (MDRD) Af Amer 46 L, Est GFR (MDRD) Non-Af 38 L, BUN/Creatinine Ratio 43.2 H , Glucose 137 H, Calcium 9.0 05/05/22 06:36: POC Glucose 124 H 05/05/22 11:31: POC Glucose 111 H Microbiology: Microbiology 04/26/22 11:29 Blood Culture (Wb) - Anticubital Left Blood Culture - Final No growth in 5 days. 04/26/22 10:16 Blood Culture (Wb) - Venous Blood Culture - Final No growth in 5 days. D/C Instructions Discharge Diet: Low fat / Low cholesterol Discharge Activity: Return to Normal Activity Weight Bearing Status: Weight bearing as tolerated Call your doctor if you observe: Fever of 101 or Higher, Shortness of breath, Dizziness, Swelling in the ankles, Chest pain and Increased palpitations (irregular heartbeat) Meaningful Use Info Meaningful Use Diagnoses (Choose all that apply): None applicable Discharge Plan Admission Admit Date/Time: 04/26/22 12:01 Primary Reason for Your Visit: gangrene of LLE Attending Provider: Quynh Aldrich Primary Care Provider: Geovanna Mott GROUT MACHINE TENDER Consulting Providers: Christophe Corbin ; Izaiah Govea Instructions Patient Instructions: Hyperkalemia Dc, ED Confusion Discharge Orders/Prescriptions Prescriptions: New metoprolol succinate 50 mg Tablet Extended Release 24 Hr 50 mg PO BID Qty: 60 2RF Continued aspirin [Adult Aspirin Regimen] 81 mg tablet,delayed release (DR/EC) 81 mg PO DAILY sennosides-docusate sodium [Senna-S] 8.6-50 mg Tablet 1 tab PO BID levothyroxine [Synthroid] 100 mcg tablet 100 mcg PO DAILY trazodone 100 mg tablet 150 mg PO QHS montelukast 10 mg tablet 10 mg PO QHS albuterol sulfate 90 mcg/actuation HFA aerosol inhaler 2 puff INHALATION Q6H PRN (Reason: Shortness Of Breath) omeprazole 40 mg Capsule,Delayed Release(Dr/Ec) 40 mg PO BID polyethylene glycol 3350 17 gram powder in packet 17 g PO DAILY ferrous sulfate [FeroSul] 325 mg (65 mg iron) tablet 325 mg PO DAILY nystatin [Nyamyc] 100,000 unit/gram powder 1 applic topical TID Protocol: *Topical Application Instructions APPLICATION INSTRUCTIONS: apply to groin tid for redness insulin lispro [Humalog KwikPen Insulin] 100 unit/mL insulin pen 10 unit subcut TIDAC paroxetine HCl [Paxil] 20 mg Tablet 20 mg PO DAILY Levemir FlexTouch U-100 Insuln 100 unit/mL (3 mL) insulin pen 25 unit SUBCUT QHS Qty: 15 0RF meloxicam 7.5 mg tablet 7.5 mg PO DAILY gabapentin 300 mg capsule 300 mg PO TID levothyroxine 25 mcg Tablet 25 mcg PO DAILY mirtazapine 15 mg tablet 15 mg PO QHS acetaminophen [Tylenol] 325 mg tablet 650 mg PO Q6H PRN (Reason: PAIN/FEVER) bumetanide 2 mg tablet 2 mg PO TID potassium chloride [Klor-Con M20] 20 mEq tablet,ER particles/crystals 20 meq PO DAILYCM Eliquis 5 mg tablet 5 mg PO BID Say (with collagen) 7-7-1.5 gram powder in packet 1 packet PO BID Discontinued metoprolol succinate 50 mg tablet extended release 24 hr 50 mg PO DAILY Referrals / Follow Up: Izaiah Govea MD [Med Staff - Active Staff] - Within 1 Week Geovanna Mott GROUT MACHINE TENDER, GROUT MACHINE TENDER-C [Primary Care Provider] - Within 1 Week Disposition Disposition (needs filled in before D/C Order can be placed): Alf Facility Charges/Coding Visit Charges Inpatient E&M: 38026 Disch Hosp >30min
--- NOTE | 2022-05-05 15:07 | CASEMGMT ---
Physician has decided to send patient back today. GREG called [facility] and spoke with Donna. GREG let Donna know patient will be returning today. Await orders. Clare DASILVA
--- NOTE | 2022-05-05 16:16 | CASEMGMT ---
SW called Physicians and arranged for patient to get picked up at 6p. SW faxed orders and pickling operator time to [facility]. SW notified RN and construction secretary. SW attempted to call patient's son Chava. Chava's voice mail was not functioning correctly. GREG will try again. Plan: d/c back to [facility] under intermediate level of care. Physicians transported via cot at 6p. Clare DASILVA
--- NOTE | 2022-05-05 16:35 | CASEMGMT ---
COVID test faxed to [facility]. SW also called patient's son and left him a voice mail letting him know patient is going back to [facility] today at 6p. Clare DASILVA
--- NOTE | 2022-05-05 16:36 | PN.SURG_ITS ---
Subjective Subjective Patient was lethargic but woke up to prompting and was alert and answering questions. She complained of pain in her L leg while dressing was being changed, but appeared to be resting comfortably prior to this. No longer on bipap. Eliquis resumed. Objective Data Objective Data Vital Signs: Vital Signs Temp Pulse Resp BP Pulse Ox O2 Del Method O2 Flow Rate 97.6 F L 101 H 18 113/58 L 98 Nasal Cannula 2 05/05/22 13:54 05/05/22 13:54 05/05/22 13:54 05/05/22 13:54 05/05/22 13:54 05/05/22 13:54 05/05/22 13:54 FiO2 30 05/04/22 04:53 Oxygen Flow Rate (L/min) 2 Oxygen Delivery Method Nasal Cannula Weight: 199 lb 1.239 oz Body Mass Index (BMI) 33.1 Intake & Output: Intake and Output for Last 24 Hours 05/03/22 05/04/22 05/05/22 23:59 23:59 23:59 Intake Total 220 / 220 715.5 / 765.5 50 / 50 Output Total 750 / 750 100 / 280 420 / 420 Balance -530 / -530 615.5 / 485.5 -370 / -370 Lab / Micro Data Result Diagrams: 05/05/22 05:00 05/05/22 05:00 Labs: Laboratory Results - last 24 hr 05/01/22 18:30: Crossmatch See Detail 05/04/22 10:50: POC Glucose 127 H 05/04/22 15:00: Anisocytosis 2+, Microcytosis 1+, Macrocytosis 1+ 05/04/22 17:31: POC Glucose 127 H 05/04/22 21:00: Lactic Acid 0.5 05/04/22 22:29: POC Glucose 143 H 05/05/22 05:00: WBC 11.5 H, RBC 2.75 L, Hgb 8.1 L, Hct 28.0 L, MCV 101.8 H, MCH 29.5, MCHC 28.9 L, RDW Std Deviation 67.8 H, RDW Coeff of Magen 18.6 H, Plt Count 139 L, MPV 10.4, Immature Gran % (Auto) 0.700, Neut % (Auto) 82.9 H, Lymph % (Auto) 9.8 L, [place] % (Auto) 5.2, Eos % (Auto) 1.1, Baso % (Auto) 0.3, Absolute Neuts (auto) 9.5 H, Absolute Lymphs (auto) 1.13, Nucleated RBC % 0, Platelet Estimate SLT DEC, Anisocytosis 2+, Macrocytosis 1+ 05/05/22 05:00: Sodium 143, Potassium 4.3, Chloride 111 H, Carbon Dioxide 28.0, Anion Gap 4 L, BUN 63 H, Creatinine 1.46 H, Estim Creat Clear Calc 32.73, Est GFR (MDRD) Af Amer 46 L, Est GFR (MDRD) Non-Af 38 L, BUN/Creatinine Ratio 43.2 H , Glucose 137 H, Calcium 9.0 05/05/22 06:36: POC Glucose 124 H 05/05/22 11:31: POC Glucose 111 H Micro: Microbiology 05/05/22 15:45 Nasal Secretion SARS-CoV-2 Antigen (Rapid) - Final 04/26/22 11:29 Blood Culture (Wb) - Anticubital Left Blood Culture - Final No growth in 5 days. 04/26/22 10:16 Blood Culture (Wb) - Venous Blood Culture - Final No growth in 5 days. Rhythm Strip Rhythm Strip: A-fib Rate: 123 Ectopy: None Physical Exam Const alert and no apparent distress General Appearance: cooperative; Negative for combative or lethargic Orientation / Consciousness: awake HEENT Head and Scalp: normocephalic and atraumatic Eyes EOMs intact bilaterally General Eye: normal appearance of both eyes Neck full ROM General: trachea midline Resp normal respiratory effort and no use of accessory muscles Effort and Inspection: Negative for labored Cardio regular rate, regular rhythm and no murmurs Back/Spine Cervical Spine: cervical ROM normal Extremity full ROM, normal capillary refill and no clubbing, cyanosis or edema Extremity Narrative: L AKA: incision site with sutures intact, skin edges viable. No significant bleeding noted, mild oozing at lateral aspect. Significant amount of serous drainage noted. No erythema, swelling/fluctuance/induration, purulent drainage. Bilateral lower extremities edematous. Skin no rashes or lesions noted Assessment & Plan Assessment/Plan (1) Dry gangrene: PLAN: POD # 3 left AKA. Operative dressing was removed today. Incision site with satisfactory appearance, sutures intact and skin edges viable. Minimal oozing at lateral aspect. Did note significant amount of serous drainage, patient is globally edematous so this is not surprising. Re-wrapped with adaptic to suture line, kerlix, and mesh stockinette to help hold dressing in place. Recommend dressing changed daily or more often as needed to keep clean and dry. Patient will f/u in vascular office in 3 weeks to remove half of sutures. Okay to d/c from vascular perspective. Discharge planning per primary team.
[2022-05-05 17:16] LABS: Bedside Glucose 120 mg/dL (74-106)
--- NOTE | 2022-05-05 17:52 | NURSING ---
Report called to Jody Silverman. Physicians to sampler pickup patient at 1800
== END 2022-05-05 19:09 | disposition skilled nursing facility (03) | DRG 617 ==
LOC: ED 11:21 → PCU 12:52 → ICU 05-02 11:28 → PCU 05-04 11:13
PROVIDERS: Family Medicine; Surgery Trauma Surgery; Admitting Provider Internal Medicine; Emergency Provider Emergency Medicine; PCP Nurse Practitioner Adult Health; Visit Provider Student in an Organized Health Care Education/Training Program
PROC: 0Y6D0Z3 Detachment at Left Upper Leg, Low, Open Approach (ICD-10-PCS; principal; 2022-05-02 11:15)
DX: E87.5 Hyperkalemia (principal); E11.52 Type 2 diabetes mellitus with diabetic peripheral angiopathy with gangrene; D68.69 Other thrombophilia; I13.0 Hypertensive heart and chronic kidney disease with heart failure and stage 1 through stage 4 chronic kidney disease, or unspecified chronic kidney disease; I50.32 Chronic diastolic (congestive) heart failure; I48.20 Chronic atrial fibrillation, unspecified; I48.92 Unspecified atrial flutter; J96.11 Chronic respiratory failure with hypoxia; L97.419 Non-pressure chronic ulcer of right heel and midfoot with unspecified severity; E11.649 Type 2 diabetes mellitus with hypoglycemia without coma; I27.21 Secondary pulmonary arterial hypertension; E86.0 Dehydration; E11.42 Type 2 diabetes mellitus with diabetic polyneuropathy; E11.22 Type 2 diabetes mellitus with diabetic chronic kidney disease; Z79.4 Long term (current) use of insulin; N18.32 Chronic kidney disease, stage 3b; J44.9 Chronic obstructive pulmonary disease, unspecified; Z89.412 Acquired absence of left great toe; E03.9 Hypothyroidism, unspecified; E78.5 Hyperlipidemia, unspecified; I25.10 Atherosclerotic heart disease of native coronary artery without angina pectoris; D50.9 Iron deficiency anemia, unspecified; F32.A Depression, unspecified; Z20.822 Contact with and (suspected) exposure to COVID-19; Z99.81 Dependence on supplemental oxygen; Z79.82 Long term (current) use of aspirin; Z79.01 Long term (current) use of anticoagulants; Z79.890 Hormone replacement therapy; Z79.899 Other long term (current) drug therapy; Z87.891 Personal history of nicotine dependence; Z95.5 Presence of coronary angioplasty implant and graft
CPT/HCPCS: 36415; 36569; 36600; 71045; 80048; 80053; 81001; 82140; 82803; 82962; 83540; 83550; 83605; 84443; 84484; 85014; 85018; 85025; 85610; 86850; 86900; 86901; 86920; 86922; 87040; 87811; 88307; 88311; 93005; 94002; 94003; 96361; 96374; 96375; 97110; 97162; 97166; 97803; 99285; A4648; J7030; J7040; J7050; J7120; P9016; P9612; A4216; J0610; J2405; J2916

== ENCOUNTER 2022-05-06 11:26 | Inpatient (IN) | payer MEDICARE, MEDICAID, SELFPAY ==
[2022-05-06] VITALS (14 sets, daily range): BP systolic 79–112; BP diastolic 55–82; PULSE 101–115; RESP 15–24; TEMP 36–36.6; O2SAT 80–100; BMI 36.4; BMI 32.7
--- NOTE | 2022-05-06 12:37 | CT_ITS ---
INDICATION: confusion EXAMINATION: CT BRAIN - CT Head or Brain W/O Contrast Injection TECHNIQUE: Multiple axial images were obtained of the head without intravenous contrast. A radiation dose optimization technique was used for this scan. IV Contrast dosage and agent: None. COMPARISON: December 28, 2021 FINDINGS: BRAIN PARENCHYMA: No intra- or extra-axial hemorrhage. No evidence of acute infarct. No intracranial mass or mass effect. There is preservation of the cartwright/white matter interface. Posterior fossa structures are unremarkable. CSF SPACES: Appropriate for age. No hydrocephalus. Basal cisterns are patent. CALVARIUM, SKULL BASE, PARANASAL SINUSES AND MASTOID AIR CELLS: Clear. No discrete lytic or blastic abnormalities. ORBITS: Both globes, extraocular muscles, optic nerves and retrobulbar fat appear unremarkable. CT/Brain/Head without Contrast IMPRESSION: No acute intracranial process. Electronically Signed: Talya España MD at 14:08 EST ,
[2022-05-06 12:56] LABS: Bedside Glucose 146 mg/dL (74-106)
[2022-05-06 13:00] LABS: Base Excess 0 mmol/L (-2 to +2); Bicarbonate 24.2 mmol/L (22-26); Blood Gas Specimen Type ART; O2 Delivery Device Cannula; PO2 107 mmHG (75-100); SITE R Brach; SO2 98 % (95-99); Total Carbon Dioxide 25 mmol/L; pCO2 35.7 mmHg (35-45); pH 7.44 (7.35-7.45)
[2022-05-06 13:01] LABS: International Normalized Ratio 3.2; Prothrombin Time (Protime)PT. 32.7 SECONDS (11.7-14.9)
[2022-05-06 13:02] LABS: Partial Thromboplast Time 53.7 Seconds (24.1-36.2)
[2022-05-06 13:16] LABS: ALB/GLOB Ratio 0.5 RATIO (0.9-2.4); AST(SGOT) 78 U/L (15-37); Alanine Aminotransfer ALT/SGPT 13 U/L (13-56); Albumin, Serum 1.9 g/dL (3.2-5.0); Alkaline Phosphatase 182 U/L (45-117); Anion Gap 6 (5-15); BUN 61 mg/dL (7-18); BUN/Creat Ratio 38.6 RATIO (10-20); Calcium,Total 8.9 mg/dL (8.5-10.1); Chloride 108 mmol/L (98-107); Creatinine, Serum 1.58 mg/dL (0.55-1.02); EST Glomerular Filtration Rate 35 mL/min (>60); Est Glom Filt Rate - Afr Amer 42 mL/min (>60); Estimated Creatinine Clearance 30.24 ml/min; Globulin 3.9 g/dL (2.2-4.2); Glucose 162 mg/dL (74-106); Potassium 4.6 mmol/L (3.5-5.1); Protein, Total 5.8 g/dL (6.4-8.2); Sodium Level 138 mmol/L (136-145); Troponin-I HS (w/2H Reflex) 60 pg/mL (3.0-54.0)
[2022-05-06 13:19] LABS: Lactic Acid 0.7 mmol/L (0.4-1.9)
[2022-05-06 13:31] LABS: BNP,B-Type NATRIURETIC PEPTIDE 506.1 pg/mL (0-100)
[2022-05-06 13:32] LABS: Basophil# 0.05 X10^3/uL; Basophil% 0.4 % (0-1); Eosinophil# 0.04 X10^3/uL; Eosinophils% 0.3 % (0-5); Hematocrit 27.6 % (37-47); Hemoglobin 8.1 g/dL (12.0-15.0); Lymphocyte % 9.3 % (19-41); Mean Corp Hgb Conc 29.3 g/dL (32-36); Mean Corpuscular Hgb 30.2 pg (27.0-32.0); Monocyte# 0.58 X10^3/uL; Monocyte% 4.9 % (0-10); NRBC Flagged by Analyzer 0 % (0-5); Neutrophil # 9.99 X10^3/uL (2.7-7.7); Neutrophil % 84.3 % (47-70); POSITIVE COUNT YES; POSITIVE MORPHOLOGY YES; Platelet Count 130 K/mm3 (150-450); RBC Distribution Width CV 18.8 % (11.6-14.6); RBC Distribution Width SD 68.9 fl (35.1-43.9); Red Blood Count 2.68 M/mm3 (4.2-5.4); White Blood Count 11.9 K/mm3 (4.4-11.0)
[2022-05-06 13:33] LABS: Differential Indicated SCAN CRITERIA MET
[2022-05-06 13:35] LABS: Anisocytosis 2+; Differential Comment SCANNED; Hypochromasia 1+; Macrocytosis 1+; Microcytosis 1+
[2022-05-06] MEDS: 0.9% Normal Saline 1,000 ML 999 ML IV (13:50)
--- NOTE | 2022-05-06 13:58 | RAD_ITS ---
INDICATION: hypoxia EXAMINATION/TECHNIQUE: X-RAY - XR Chest 1 View COMPARISON: April 30, 2022 FINDINGS: LINES/DEVICES: None. LUNGS: There is a right pleural effusion. Within the right perihilar region there is a stable ill-defined opacity MEDIASTINUM AND CARDIOVASCULAR STRUCTURES: Cardiac silhouette not enlarged. BONES AND SOFT TISSUES: There is a stable sclerotic focus within the right humeral head which may reflect an enchondroma. RAD/Chest 1 View (Portable) IMPRESSION: Right pleural effusion, cannot exclude associated right basilar atelectasis and/or pneumonia. Right perihilar fullness, may be secondary to consolidation however cannot exclude an enlarged lymph node, cannot exclude a mass. Electronically Signed: Talya España MD at 14:10 EST ,
--- NOTE | 2022-05-06 14:13 | CT_ITS ---
INDICATION: ? Mass on CXR EXAMINATION: CT CHEST WITHOUT CONTRAST - CT Chest W/O Contrast Injection TECHNIQUE: Helically acquired images were obtained of the chest. A radiation dose optimization technique was used for this scan. IV Contrast dosage and agent: None. COMPARISON: November 02, 2021 FINDINGS: LUNGS, PLEURA AND LARGE AIRWAYS: There are bilateral pleural effusions, right greater than left associated with lower lobe consolidation. The right lower lobe consolidation extend into the right hilar region. There is right middle lobe consolidation as well. THYROID: No thyroid lesions. HEART AND PERICARDIUM: There is cardiomegaly. There is a pericardial effusion. CORONARY ARTERIES: Coronary artery calcification is seen. VESSELS: Thoracic aorta is not dilated. There are peripheral calcifications of the thoracic aorta. MEDIASTINUM AND CHAUNCEY: No mediastinal or hilar adenopathy. Esophagus is unremarkable. No hiatal hernia. UPPER ABDOMEN: There is ascites within the visualized upper abdomen. There is diffuse subcutaneous edema within the right breast and visualized abdominal wall, more pronounced on the right. BONES: There is a stable sclerotic focus within the right humeral head which may reflect a enchondroma. There are degenerative changes of the thoracic spine. CT/Chest without Contrast IMPRESSION: Bilateral pleural effusions, right greater than left associated with bilateral lower and right middle lobe consolidation. Cardiomegaly. Pericardial effusion. Atherosclerosis. Subcutaneous edema within the right breast and visualized abdominal wall, more pronounced on the right. Electronically Signed: Talya España MD at 15:48 EST ,
[2022-05-06 14:47] LABS: Reflex Troponin-HS? (from REC) Y
--- NOTE | 2022-05-06 15:17 | ED.VIS.DYS ---
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 She is presenting from nursing facility today for hypoxia. Patient had an SPO2 of 50% on nasal cannula. She was put on nonrebreather and went up to 100%. Patient is not able to answer any questions at this time. No report of any falls. I did speak to the patient's son, Judd, who expresses concern about the patient's blood sugar and that she has been doing poorly since being back at [place]. [facility] Medical History Acute cervical myofascial strain Acute on chronic respiratory failure with hypoxemia Acute respiratory failure with hypoxia Amputated toe of left foot Anemia Asthma Atherosclerotic heart disease of [place] coronary artery without angina pectoris Atrial fibrillation Atrial fibrillation with rapid ventricular response CAD (coronary artery disease) CHF (congestive heart failure) Chronic congestive heart failure Chronic heart failure with preserved ejection fraction (HFpEF) Chronic heel ulcer Chronic respiratory failure with hypoxia, on home oxygen therapy Chronic ulcer of great toe of left foot Closed head injury Congestive heart failure (CHF) COPD (chronic obstructive pulmonary disease) Current use of insulin Decubitus ulcer of dorsum of foot, stage 2 Decubitus ulcer of left heel, stage 2 Decubitus ulcer of left heel, stage 3 Decubitus ulcer, heel, left, unstageable Depression Diabetes mellitus with diabetic polyneuropathy Diabetes type 2, controlled Diabetic foot ulcers Diverticulitis Dry gangrene Essential hypertension Former smoker History of amputation of left great toe History of non-ST elevation myocardial infarction (NSTEMI) (02/24/17) Hyperlipidemia Hypoglycemia due to type 1 diabetes mellitus Hypothyroid Morbid obesity Multiple wounds Myocardial infarct Non-rheumatic tricuspid valve insufficiency Nondisplaced fracture of distal phalanx of right great toe, initial encounter for closed fracture Nonrheumatic mitral (valve) insufficiency Obesity Obstructive sleep apnea On home O2 Renal insufficiency Secondary pulmonary arterial hypertension Thrombocytopenia Type 2 diabetes mellitus Vitamin D deficiency Home Medications aspirin 81 mg tablet,delayed release (Adult Aspirin Regimen) 81 mg PO DAILY HEART HEALTH 05/17/21 [History Last Taken 04/25/22 08:30] levothyroxine 100 mcg tablet (Synthroid) 125 mcg PO DAILY THYROID 12/13/21 [History Last Taken 04/26/22 06:00] montelukast 10 mg tablet 10 mg PO QHS ALLERGIES 12/13/21 [History Last Taken 04/25/22 20:58] sennosides 8.6 mg-docusate sodium 50 mg tablet (Senna-S) 1 tab PO BID STOOL SOFTNER 12/13/21 [History Last Taken 04/25/22 20:58] trazodone 100 mg tablet 150 mg PO QHS SLEEP 12/13/21 [History Last Taken 04/25/22 20:58] albuterol sulfate 90 mcg/actuation aerosol inhaler 2 puff inhalation Q6H PRN Shortness Of Breath 12/19/21 [History Last Taken Unknown] ferrous sulfate 325 mg (65 mg iron) tablet (FeroSul) 325 mg PO DAILY ANEMIA 12/28/21 [History Last Taken 04/25/22 11:00] insulin lispro 100 unit/mL subcutaneous pen (Humalog KwikPen (U-100) Insulin) 10 unit subcut TIDAC DIABETES 12/28/21 [History Last Taken 04/25/22 20:40] nystatin 100,000 unit/gram topical powder (Nyamyc) 1 applic topical TID IRRITATION 12/28/21 [History Last Taken 04/25/22 20:58] omeprazole 40 mg capsule,delayed release 40 mg PO BID GERD 12/28/21 [History Last Taken 04/25/22 20:58] polyethylene glycol 3350 17 gram oral powder packet 17 g PO DAILY CONSTIPATION 12/28/21 [History Last Taken 04/25/22 08:30] paroxetine HCl 20 mg tablet (Paxil) 20 mg PO DAILY MOOD 01/12/22 [History Last Taken 04/26/22 08:30] insulin detemir U-100 100 unit/mL (3 mL) subcutaneous pen (Levemir FlexTouch U-100 Insulin) 25 unit (0.25 mL) subcut QHS blood sugar #15 mL 02/24/22 [Rx Last Taken 04/24/22 19:30] meloxicam 7.5 mg tablet 7.5 mg PO DAILY PAIN 03/31/22 [History Last Taken 04/26/22 08:30] acetaminophen 325 mg tablet (Tylenol) 650 mg PO Q6H PRN PAIN/FEVER 04/26/22 [History Last Taken 04/26/22 06:00] apixaban 5 mg tablet (Eliquis) 5 mg PO BID BLOOD THINNER 04/26/22 [History Last Taken 04/26/22 08:30] arginine 7 gram-glutam 7 gram-CaHMB 1.5 tbio-kohcf-bd-min oral pwd pkt (Say (with collagen)) 1 packet PO BID WOUND HEALING 04/26/22 [History Last Taken 04/25/22 11:00] bumetanide 2 mg tablet 2 mg PO TID FLUID 04/26/22 [History Last Taken 04/26/22 06:00] gabapentin 300 mg capsule 300 mg PO TID NERVE PAIN 04/26/22 [History Last Taken 04/25/22 13:30] mirtazapine 15 mg tablet 15 mg PO QHS MOOD 04/26/22 [History Last Taken 04/25/22 20:58] potassium chloride 20 mEq tablet,extended release(part/cryst) (Klor-Con M) 20 meq PO TID SUPPLEMENT 04/26/22 [History Last Taken 04/26/22 06:00] metoprolol tartrate 50 mg tablet 50 mg PO BID 05/06/22 [History Last Taken Unknown] Allergy/AdvReac Type Severity Reaction Status Date / Time doxycycline Allergy NEEDS Verified 05/06/22 11:45 FOLLOW-UP latex Allergy NEEDS Verified 05/06/22 11:45 FOLLOW-UP Sulfa (Sulfonamide Allergy Anaphylaxis Verified 05/06/22 11:45 Antibiotics) sulfur dioxide Allergy Anaphylaxis Verified 05/06/22 11:45 oxycodone AdvReac Other Verified 05/06/22 11:45 Family History Grandmother Diabetes Mother Heart disease Surgical History H/O right heart catheterization History of cataract surgery History of coronary artery stent placement (02/24/17) History of heart artery stent Tubal ligation status Social History household members: none housing: other details: [facility]. Smoking Status: Former smoker how long ago did patient quit smokin alcohol intake: former year quit: 1999 substance use type: does not use caffeine: Yes Type: carbonated beverages and tea ROS ROS ED Review of Systems ROS Unobtainable: due to mental status EXAM Physical Exam Const Vital Signs: 05/06/22 11:30 05/06/22 11:40 05/06/22 13:20 Temperature 96.8 F L 96.8 F L Temperature Source Temporal Temporal Pulse Rate 109 H 107 H 101 H Respiratory Rate 20 H 16 18 Blood Pressure 98/82 H 98/82 H 79/55 L Blood Pressure Mean 87 87 63 Pulse Ox 80 96 96 Oxygen Delivery Method Room Air Nasal Cannula Nasal Cannula Oxygen Flow Rate (L/min) 2 2 05/06/22 13:50 05/06/22 14:53 05/06/22 15:36 Temperature 97.0 F L Temperature Source Temporal Pulse Rate 108 H 115 H Respiratory Rate 15 16 Blood Pressure 96/58 L 88/56 L 112/61 Blood Pressure Mean 70 66 78 Pulse Ox 100 99 Oxygen Delivery Method Nasal Cannula Room Air Oxygen Flow Rate (L/min) 3 Constitutional Narrative: Chronically ill attending, patient obtunded when I first evaluated her HEENT Reports dry mucous membranes Mouth ED: Yes dry mucous membranes Mouth: dry mucous membranes Eyes PERRL and EOMs intact bilaterally Neck supple Neck Narrative: Patient has a short neck with increased girth, difficult to evaluate for JVD Resp Resp Narrative: Diminished breath sounds at the bases, shallow respirations Cardio regular rate and no murmurs Rate: tachycardic GI non-tender and non-distended Auscultation: hypoactive bowel sounds Extremity Extremity Narrative: Status post AKA of the left upper extremity. Surgical site appears clean and dry. Sutures are still intact. No surrounding erythema. Diffuse anasarca present Neuro Neuro Narrative: Globally weak. On initial evaluation patient is obtunded but will cry out in pain on attempted IV access. [place] Coma Scale: document GCS findings None Withdraws to Pain Incomprehensible 7 Skin Skin Narrative: Healing surgical wound of the left lower extremity stump. Scattered ecchymosis from prior IVs. Weeping of the skin MDM MDM MDM Narrative Medical decision making narrative: Patient is evaluated for hypoxia at nursing facility. EMS report independently reviewed. See below. Differential for patient includes acute hypercapnic respiratory failure, sepsis, encephalopathy, ACS, pneumonia and electrolyte abnormality. Fingerstick glucose checked and it is mildly elevated at 146. I do not think the patient's obtunded status is secondary to hypoglycemia. CBC shows a mild leukocytosis 11.9 and a stable anemia with a hemoglobin of 8.1. Patient does not require blood transfusion. She is mildly thrombocytopenic at 130 but this is consistent with her discharge labs. Patient does have mildly elevated PT and PTT of uncertain clinical significance as she is on Eliquis. Low suspicion for pulmonary emboli she is chronically anticoagulated. Her lactate is normal at 0.7. Patient does have a mildly elevated creatinine 1.58 but again this is near her baseline. No significant laboratory abnormalities except for her high-sensitivity troponin which is 60 and then 97 on repeat. BNP elevated at 506. Clinically patient appears significantly fluid overloaded. Chest x-ray to read by myself as well as radiology shows right pleural effusion with possible pneumonia and right perihilar fullness which could be secondary to consolidation but cannot rule out mass. Because of this a CT of the chest was added on for further evaluation. In addition CT of the brain was obtained due to her altered mental status. CT the brain does not show any acute process. CT of the chest shows bilateral pleural effusions, right greater than left associated bilateral lower and right middle lobe consolidation as well as cardiomegaly and pericardial effusion. Patient appears intravascularly depleted, is tachycardic is dry mucosal membranes. Has soft/low blood pressures is given IV fluids in the ER. ABG is consistent with compensated hypoxia. The exact cause of her altered mental status is not clear however after receiving IV fluids patient does seem to perk up and her mentation does improve. Blood pressure also improved. Patient's troponin is uptrending and clinically she does appear anasarcic. I do think she would benefit from admission. CT does show pneumonia and she is started on broad-spectrum antibiotics, vancomycin and Zosyn. I discussed with the patient's son upon arrival as well as again at time of admission and he is agreeable with this plan of care. He confirms that patient is a full code. Case discussed with my physician, Dr. Romero who is agreeable with admission. Patient has mild tachycardia but blood pressure is fluid responsive and I do not think her symptoms are secondary to cardiac tamponade given her pericardial effusion on CT however should she have worsening or persistent hypotension likely would benefit from stat echocardiogram. History & Record Review Discussion w/independent historian: EMS personnel (Patient had SPO2's in the mid 50s per nursing staff. After warming of her fingers her SPO2 was 92%. Patient was not cyanotic.) Additional record(s) reviewed:: Prior inpatient record (Was admitted 04/26-05/05 initially for hyperkalemia and subsequently under was left AKA due to left foot gangrene with Dr. Govea.) Lab Data Attestation: I reviewed the patient's lab results. Labs: Laboratory Results - last 24 hr 05/06/22 05/06/22 05/06/22 12:32 12:42 12:42 WBC 11.9 H RBC 2.68 L Hgb 8.1 L Hct 27.6 L MCV 103.0 H MCH 30.2 MCHC 29.3 L RDW Std Deviation 68.9 H RDW Coeff of Magen 18.8 H Plt Count 130 L MPV 11.0 Immature Gran % (Auto) 0.800 Neut % (Auto) 84.3 H Lymph % (Auto) 9.3 L [place] % (Auto) 4.9 Eos % (Auto) 0.3 Baso % (Auto) 0.4 Absolute Neuts (auto) 10.0 H Absolute Lymphs (auto) 1.10 Nucleated RBC % 0 Differential Comment SCANNED Hypochromasia 1+ Anisocytosis 2+ Microcytosis 1+ Macrocytosis 1+ PT 32.7 H INR 3.2 APTT 53.7 H Sodium Potassium Chloride Carbon Dioxide Anion Gap BUN Creatinine Estim Creat Clear Calc Est GFR (MDRD) Af Amer Est GFR (MDRD) Non-Af BUN/Creatinine Ratio Glucose Lactic Acid Calcium Total Bilirubin AST ALT Alkaline Phosphatase Troponin I High Sens B-Natriuretic Peptide Total Protein Albumin Globulin Albumin/Globulin Ratio Urine Color Urine Clarity Urine pH Ur Specific [place] Urine Protein Urine Glucose (UA) Urine Ketones Urine Occult Blood Urine Nitrite Urine Bilirubin Urine Urobilinogen Ur Leukocyte Esterase Urine RBC Urine WBC Ur Squamous Epith Cells Urine Bacteria Urine Mucus POC Glucose 146 H 05/06/22 05/06/22 05/06/22 12:42 12:42 12:42 WBC RBC Hgb Hct MCV MCH MCHC RDW Std Deviation RDW Coeff of Magen Plt Count MPV Immature Gran % (Auto) Neut % (Auto) Lymph % (Auto) [place] % (Auto) Eos % (Auto) Baso % (Auto) Absolute Neuts (auto) Absolute Lymphs (auto) Nucleated RBC % Differential Comment Hypochromasia Anisocytosis Microcytosis Macrocytosis PT INR APTT Sodium 138 Potassium 4.6 Chloride 108 H Carbon Dioxide 24.0 Anion Gap 6 BUN 61 H Creatinine 1.58 H Estim Creat Clear Calc 30.24 Est GFR (MDRD) Af Amer 42 L Est GFR (MDRD) Non-Af 35 L BUN/Creatinine Ratio 38.6 H Glucose 162 H Lactic Acid 0.7 Calcium 8.9 Total Bilirubin 0.30 AST 78 H ALT 13 Alkaline Phosphatase 182 H Troponin I High Sens 60 H B-Natriuretic Peptide 506.1 H Total Protein 5.8 L Albumin 1.9 L Globulin 3.9 Albumin/Globulin Ratio 0.5 L Urine Color Urine Clarity Urine pH Ur Specific [place] Urine Protein Urine Glucose (UA) Urine Ketones Urine Occult Blood Urine Nitrite Urine Bilirubin Urine Urobilinogen Ur Leukocyte Esterase Urine RBC Urine WBC Ur Squamous Epith Cells Urine Bacteria Urine Mucus POC Glucose 05/06/22 05/06/22 15:23 15:49 WBC RBC Hgb Hct MCV MCH MCHC RDW Std Deviation RDW Coeff of Magen Plt Count MPV Immature Gran % (Auto) Neut % (Auto) Lymph % (Auto) [place] % (Auto) Eos % (Auto) Baso % (Auto) Absolute Neuts (auto) Absolute Lymphs (auto) Nucleated RBC % Differential Comment Hypochromasia Anisocytosis Microcytosis Macrocytosis PT INR APTT Sodium Potassium Chloride Carbon Dioxide Anion Gap BUN Creatinine Estim Creat Clear Calc Est GFR (MDRD) Af Amer Est GFR (MDRD) Non-Af BUN/Creatinine Ratio Glucose Lactic Acid Calcium Total Bilirubin AST ALT Alkaline Phosphatase Troponin I High Sens 97 H B-Natriuretic Peptide Total Protein Albumin Globulin Albumin/Globulin Ratio Urine Color Yellow Urine Clarity Clear Urine pH 5.0 Ur Specific [place] 1.015 Urine Protein 30 H Urine Glucose (UA) Normal Urine Ketones Negative Urine Occult Blood Negative Urine Nitrite Negative Urine Bilirubin Negative Urine Urobilinogen Normal Ur Leukocyte Esterase 100 H Urine RBC 0 SEEN Urine WBC 0-5 SEEN Ur Squamous Epith Cells 0 SEEN Urine Bacteria 0 SEEN Urine Mucus 0 SEEN POC Glucose ABG Data ABG results: ABG 05/06/22 12:57 Specimen Type ART Sample Site R Brach pH 7.44 Bicarbonate Actual 24.2 Total CO2 25 Base Excess 0 O2 Saturation 98 ABG pCO2 35.7 ABG pO2 107 H O2 Delivery Device Cannula Liter Flow 2.0 Radiography Diagnostic Testing: Clinical Impression(s) from Imaging Studies Brain CT 05/06/22 12:37 IMPRESSION: No acute intracranial process. Electronically Signed: Talya España MD at 14:08 EST , Chest X-Ray 05/06/22 13:58 IMPRESSION: Right pleural effusion, cannot exclude associated right basilar atelectasis and/or pneumonia. Right perihilar fullness, may be secondary to consolidation however cannot exclude an enlarged lymph node, cannot exclude a mass. Electronically Signed: Talya España MD at 14:10 EST , Chest CT 05/06/22 14:13 IMPRESSION: Bilateral pleural effusions, right greater than left associated with bilateral lower and right middle lobe consolidation. Cardiomegaly. Pericardial effusion. Atherosclerosis. Subcutaneous edema within the right breast and visualized abdominal wall, more pronounced on the right. Electronically Signed: Talya España MD at 15:48 EST , Discharge Plan Triage Chief Complaint: Shortness of Breath ED Provider: Reema Treadwell Dx/Rx/DC Orders Clinical Impression: Elevated troponin, Heart failure with preserved ejection fraction, Acute encephalopathy, Chronic respiratory failure, Pneumonia involving right lung Primary Care Provider: Geovanna Mott SHEARER OPERATOR Disposition Disposition: Acute Care Hospital [facility] Discharge Date/Time: 05/06/22 17:54
[2022-05-06 15:58] LABS: Bacteria 0 SEEN /hpf (None Seen); Mucous, Urine 0 SEEN /hpf (<or=2+); Red Blood Cells-Urine 0 SEEN /hpf (0-5); Squamous Epithelial Cells - UA 0 SEEN /hpf (5-10)
[2022-05-06 16:01] LABS: Color, Urine Yellow (Yellow); Glucose, Dipstick Normal (Normal); Ketone-Dipstick Negative (Negative); Leukocyte Esterase-Dipstick 100 /ul (Negative); Nitrite-Dipstick Negative (Negative); Occult Blood-Urine Negative /ul (Negative); Protein-Dipstick 30 mg/dl (Negative); Specific Gravity, Urine 1.015 (1.002-1.030); Urine Bilirubin Dipstick Negative (Negative); Urine Clarity Clear (Clear); Urine Urobilinogen Normal (Normal)
[2022-05-06 16:08] LABS: Troponin-I HS 97 pg/mL (3.0-54.0)
[2022-05-06 16:16] LABS: White Blood Cells 0-5 SEEN /hpf (0-5)
--- NOTE | 2022-05-06 16:56 | PCM.HP.STD ---
HPI - General General Date of Admission: 05/06/22 HPI Narrative SONA WILSON, is a 67 F who presents [facility] Medical History Acute cervical myofascial strain Acute on chronic respiratory failure with hypoxemia Acute respiratory failure with hypoxia Amputated toe of left foot Anemia Asthma Atherosclerotic heart disease of [place] coronary artery without angina pectoris Atrial fibrillation Atrial fibrillation with rapid ventricular response CAD (coronary artery disease) CHF (congestive heart failure) Chronic congestive heart failure Chronic heart failure with preserved ejection fraction (HFpEF) Chronic heel ulcer Chronic respiratory failure with hypoxia, on home oxygen therapy Chronic ulcer of great toe of left foot Closed head injury Congestive heart failure (CHF) COPD (chronic obstructive pulmonary disease) Current use of insulin Decubitus ulcer of dorsum of foot, stage 2 Decubitus ulcer of left heel, stage 2 Decubitus ulcer of left heel, stage 3 Decubitus ulcer, heel, left, unstageable Depression Diabetes mellitus with diabetic polyneuropathy Diabetes type 2, controlled Diabetic foot ulcers Diverticulitis Dry gangrene Essential hypertension Former smoker History of amputation of left great toe History of non-ST elevation myocardial infarction (NSTEMI) (02/24/17) Hyperlipidemia Hypoglycemia due to type 1 diabetes mellitus Hypothyroid Morbid obesity Multiple wounds Myocardial infarct Non-rheumatic tricuspid valve insufficiency Nondisplaced fracture of distal phalanx of right great toe, initial encounter for closed fracture Nonrheumatic mitral (valve) insufficiency Obesity Obstructive sleep apnea On home O2 Renal insufficiency Secondary pulmonary arterial hypertension Thrombocytopenia Type 2 diabetes mellitus Vitamin D deficiency Home Medications aspirin 81 mg tablet,delayed release (Adult Aspirin Regimen) 81 mg PO DAILY HEART HEALTH 05/17/21 [History Last Taken 04/25/22 08:30] levothyroxine 100 mcg tablet (Synthroid) 125 mcg PO DAILY THYROID 12/13/21 [History Last Taken 04/26/22 06:00] montelukast 10 mg tablet 10 mg PO QHS ALLERGIES 12/13/21 [History Last Taken 04/25/22 20:58] sennosides 8.6 mg-docusate sodium 50 mg tablet (Senna-S) 1 tab PO BID STOOL SOFTNER 12/13/21 [History Last Taken 04/25/22 20:58] trazodone 100 mg tablet 150 mg PO QHS SLEEP 12/13/21 [History Last Taken 04/25/22 20:58] albuterol sulfate 90 mcg/actuation aerosol inhaler 2 puff inhalation Q6H PRN Shortness Of Breath 12/19/21 [History Last Taken Unknown] ferrous sulfate 325 mg (65 mg iron) tablet (FeroSul) 325 mg PO DAILY ANEMIA 12/28/21 [History Last Taken 04/25/22 11:00] insulin lispro 100 unit/mL subcutaneous pen (Humalog KwikPen (U-100) Insulin) 10 unit subcut TIDAC DIABETES 12/28/21 [History Last Taken 04/25/22 20:40] nystatin 100,000 unit/gram topical powder (Nyamyc) 1 applic topical TID IRRITATION 12/28/21 [History Last Taken 04/25/22 20:58] omeprazole 40 mg capsule,delayed release 40 mg PO BID GERD 12/28/21 [History Last Taken 04/25/22 20:58] polyethylene glycol 3350 17 gram oral powder packet 17 g PO DAILY CONSTIPATION 12/28/21 [History Last Taken 04/25/22 08:30] paroxetine HCl 20 mg tablet (Paxil) 20 mg PO DAILY MOOD 01/12/22 [History Last Taken 04/26/22 08:30] insulin detemir U-100 100 unit/mL (3 mL) subcutaneous pen (Levemir FlexTouch U-100 Insulin) 25 unit (0.25 mL) subcut QHS blood sugar #15 mL 02/24/22 [Rx Last Taken 04/24/22 19:30] meloxicam 7.5 mg tablet 7.5 mg PO DAILY PAIN 03/31/22 [History Last Taken 04/26/22 08:30] acetaminophen 325 mg tablet (Tylenol) 650 mg PO Q6H PRN PAIN/FEVER 04/26/22 [History Last Taken 04/26/22 06:00] apixaban 5 mg tablet (Eliquis) 5 mg PO BID BLOOD THINNER 04/26/22 [History Last Taken 04/26/22 08:30] arginine 7 gram-glutam 7 gram-CaHMB 1.5 pkhp-towno-ug-min oral pwd pkt (Say (with collagen)) 1 packet PO BID WOUND HEALING 04/26/22 [History Last Taken 04/25/22 11:00] bumetanide 2 mg tablet 2 mg PO TID FLUID 04/26/22 [History Last Taken 04/26/22 06:00] gabapentin 300 mg capsule 300 mg PO TID NERVE PAIN 04/26/22 [History Last Taken 04/25/22 13:30] mirtazapine 15 mg tablet 15 mg PO QHS MOOD 04/26/22 [History Last Taken 04/25/22 20:58] potassium chloride 20 mEq tablet,extended release(part/cryst) (Klor-Con M) 20 meq PO TID SUPPLEMENT 04/26/22 [History Last Taken 04/26/22 06:00] metoprolol tartrate 50 mg tablet 50 mg PO BID 05/06/22 [History Last Taken Unknown] Allergy/AdvReac Type Severity Reaction Status Date / Time doxycycline Allergy NEEDS Verified 05/06/22 11:45 FOLLOW-UP latex Allergy NEEDS Verified 05/06/22 11:45 FOLLOW-UP Sulfa (Sulfonamide Allergy Anaphylaxis Verified 05/06/22 11:45 Antibiotics) sulfur dioxide Allergy Anaphylaxis Verified 05/06/22 11:45 oxycodone AdvReac Other Verified 05/06/22 11:45 Family History Grandmother Diabetes Mother Heart disease Surgical History H/O right heart catheterization History of cataract surgery History of coronary artery stent placement (02/24/17) History of heart artery stent Tubal ligation status Social History household members: none housing: other details: [facility] Smoking Status: Former smoker how long ago did patient quit smokin alcohol intake: former year quit: 1999 substance use type: does not use caffeine: Yes Type: carbonated beverages and tea ROS ROS Narrative Able to obtain full ROS due to her confusion but she did deny headache, chest pain, reported cough with sputum and shortness of breath. Denied abdominal pain at this time. Vital Signs Vital Signs Vital Signs: 05/06/22 11:30 05/06/22 11:40 05/06/22 13:20 Temperature 96.8 F L 96.8 F L Temperature Source Temporal Temporal Pulse Rate 109 H 107 H 101 H Respiratory Rate 20 H 16 18 Blood Pressure 98/82 H 98/82 H 79/55 L Blood Pressure Mean 87 87 63 Pulse Ox 80 96 96 Oxygen Delivery Method Room Air Nasal Cannula Nasal Cannula Oxygen Flow Rate (L/min) 2 2 05/06/22 13:50 05/06/22 14:53 05/06/22 15:36 Temperature 97.0 F L Temperature Source Temporal Pulse Rate 108 H 115 H Respiratory Rate 15 16 Blood Pressure 96/58 L 88/56 L 112/61 Blood Pressure Mean 70 66 78 Pulse Ox 100 99 Oxygen Delivery Method Nasal Cannula Room Air Oxygen Flow Rate (L/min) 3 Weight Weight: 96.4 kg Body Mass Index (BMI) 36.4 Physical Exam Narrative General: Easily wakes up, knows it is 2022 but think she is in [facility], vaguely confused HEENT: Atraumatic, normocephalic Eyes: Anicteric, normal conjunctiva, extraocular movements grossly intact Neck: Supple Respiratory: Coarse breath sounds bilaterally, dull at the bases, not presently increased work of breathing Cardiovascular: Irregularly irregular, heart rate low 100s GI: Soft, no rebound, guarding, rigidity, nondistended Extremities: Left AKA, right lower extremity cool with chronic changes Musculoskeletal: Moving all extremities Neuro: No overt focal neurological deficits, is vaguely confused Skin: No erythema appreciated on torso, left AKA stitches present, minimal serosanguineous drainage, no erythema or pus appreciated Psych: Attempted to be cooperative Results Lab / Micro Data Result Diagrams: 05/06/22 12:42 05/06/22 12:42 Labs: Laboratory Results - last 24 hr 05/06/22 12:32: POC Glucose 146 H 05/06/22 12:42: WBC 11.9 H, RBC 2.68 L, Hgb 8.1 L, Hct 27.6 L, MCV 103.0 H, MCH 30.2, MCHC 29.3 L, RDW Std Deviation 68.9 H, RDW Coeff of Magen 18.8 H, Plt Count 130 L, MPV 11.0, Immature Gran % (Auto) 0.800, Neut % (Auto) 84.3 H, Lymph % (Auto) 9.3 L, Andrews % (Auto) 4.9, Eos % (Auto) 0.3, Baso % (Auto) 0.4, Absolute Neuts (auto) 10.0 H, Absolute Lymphs (auto) 1.10, Nucleated RBC % 0, Differential Comment SCANNED, Hypochromasia 1+, Anisocytosis 2+, Microcytosis 1+, Macrocytosis 1+ 05/06/22 12:42: PT 32.7 H, INR 3.2, APTT 53.7 H 05/06/22 12:42: Sodium 138, Potassium 4.6, Chloride 108 H, Carbon Dioxide 24.0, Anion Gap 6, BUN 61 H, Creatinine 1.58 H, Estim Creat Clear Calc 30.24, Est GFR (MDRD) Af Amer 42 L, Est GFR (MDRD) Non-Af 35 L, BUN/Creatinine Ratio 38.6 H, Glucose 162 H, Calcium 8.9, Total Bilirubin 0.30, AST 78 H, ALT 13, Alkaline Phosphatase 182 H, Troponin I High Sens 60 H, Total Protein 5.8 L, Albumin 1.9 L, Globulin 3.9, Albumin/Globulin Ratio 0.5 L 05/06/22 12:42: Lactic Acid 0.7 05/06/22 12:42: B-Natriuretic Peptide 506.1 H 05/06/22 15:23: Troponin I High Sens 97 H 05/06/22 15:49: Urine Color Yellow, Urine Clarity Clear, Urine pH 5.0, Ur Specific [place] 1.015, Urine Protein 30 H, Urine Glucose (UA) Normal, Urine Ketones Negative, Urine Occult Blood Negative, Urine Nitrite Negative, Urine Bilirubin Negative, Urine Urobilinogen Normal, Ur Leukocyte Esterase 100 H, Urine RBC 0 SEEN, Urine WBC 0-5 SEEN, Ur Squamous Epith Cells 0 SEEN, Urine Bacteria 0 SEEN, Urine Mucus 0 SEEN ABG Data ABG results: ABG 05/06/22 12:57 Specimen Type ART Sample Site R Brach pH 7.44 Bicarbonate Actual 24.2 Total CO2 25 Base Excess 0 O2 Saturation 98 ABG pCO2 35.7 ABG pO2 107 H O2 Delivery Device Cannula Liter Flow 2.[address] 05/06/22 12:37 IMPRESSION: No acute intracranial process. Electronically Signed: Talya España MD at 14:08 EST , Chest X-Ray 05/06/22 13:58 IMPRESSION: Right pleural effusion, cannot exclude associated right basilar atelectasis and/or pneumonia. Right perihilar fullness, may be secondary to consolidation however cannot exclude an enlarged lymph node, cannot exclude a mass. Electronically Signed: Talya España MD at 14:10 EST , Chest CT 05/06/22 14:13 IMPRESSION: Bilateral pleural effusions, right greater than left associated with bilateral lower and right middle lobe consolidation. Cardiomegaly. Pericardial effusion. Atherosclerosis. Subcutaneous edema within the right breast and visualized abdominal wall, more pronounced on the right. Electronically Signed: Talya España MD at 15:48 EST , Assessment & Plan Assessment/Plan (1) Acute hypoxemic respiratory failure: PLAN: Plan #Acute on chronic hypoxic respiratory failure secondary to pleural effusions and pneumonia in the setting of COPD on 3 to 5 L of O2 at baseline -Given frequent hospital exposure we will treat for HAP -Vancomycin and Zosyn given in ED, will continue -Incentive spirometry -Respiratory panel, will also obtain MRSA swab -COVID and flu negative -Obtain sputum culture if able, blood cultures ordered in ED -Mucinex and nebs -ABG in ED shows adequate oxygenation and no hypercapnia -BNP 506 but appears it remains fairly elevated, holding Bumex with her blood pressure and seems somewhat intravascularly dry, daily weights, I's and O's, most recent echo 10/18/2021 demonstrated EF 55% with moderate mitral valve insufficiency, moderate tricuspid valve insufficiency, RVSP 55 mmHg and indeterminate diastolic dysfunction -Repeating echo #Acute encephalopathy, metabolic versus toxic -Possibly due to underlying pneumonia -We will avoid deliriogenic medications -CT head no acute changes -No longer hypoxic and not retaining CO2 -Appears to be improving with fluids and supportive care #NSTEMI likely type II/ hx coronary artery disease, peripheral vascular disease -Continue aspirin -Unclear why not on statin -Suspect type II, initial troponin 60, repeat 97, no chest pain, EKG nonspecific #Microcytic anemia -At baseline, does not require transfusion #Left AKA 05/02/22 2/2 gangrenous foot -Left AKA last admission with Dr. Govea -Incision does not appear infected #Atrial fibrillation -Heart rate low 100s, not presently in RVR -Continue Eliquis -Metoprolol with holding parameters #Pericardial effusion -Blood pressure somewhat low but stable -Heart rates been stable in the low 100s -We will obtain echo, heart sounds are not muffled -Monitor in PCU #Type 2 diabetes mellitus -Diabetic and heart healthy diet, glucose checks, sliding scale insulin -We will decrease long-acting as per report patient has tendency to become hypoglycemic, can increase as patient improves p.o. intake #Hypothyroidism -TSH last admission very mildly elevated but patient with acute illness -Continue Synthroid and will need to recheck once patient medically stable #CKD stage IIIb -Appears close to baseline -Avoid nephrotoxic agents #DVT ppx: Lovenox subcu Coco Romero MD Time spent in the patient's overall evaluation,decision-making process, review of diagnostic data, adjustment of management, discussion with other providers, nursing nursing and ancillary staff involved in patient's care documentation, 60 minutes Charges/Coding Visit Charges Inpatient E&M: 85673 Init Hosp L2
--- NOTE | 2022-05-06 18:40 | PCM.RX.CS ---
Consult Pharmacy has been consulted to manage selected antiobiotic: Vancomycin Type of Consult: New start Suspected Infection: Pneumonia Prior Doses of Antibiotics Received/Current Regimen: received vanc 1500mg IV x1 in E.R. starting at 17:48 today Labs: Sodium 138 mmol/L (136-145) 05/06/22 12:42 Potassium 4.6 mmol/L (3.5-5.1) 05/06/22 12:42 Chloride 108 mmol/L (98-107) H 05/06/22 12:42 Carbon Dioxide 24.0 mmol/L (21.0-32.0) 05/06/22 12:42 Anion Gap 6 (5-15) 05/06/22 12:42 BUN 61 mg/dL (7-18) H 05/06/22 12:42 Creatinine 1.58 mg/dL (0.55-1.02) H 05/06/22 12:42 Est GFR (MDRD) Af Amer 42 mL/min (>60) L 05/06/22 12:42 Est GFR (MDRD) Non-Af 35 mL/min (>60) L 05/06/22 12:42 BUN/Creatinine Ratio 38.6 RATIO (10-20) H 05/06/22 12:42 Glucose 162 mg/dL (74-106) H 05/06/22 12:42 Weight used for dosin.3 kg Estimated Creatinine Clearance: 38.6ml/min Goal Trough: 15-20 mcg/mL Pharmacy Plan for Drug Dosing: Starting 24 hours after the E.R. dose, will continue with vanc 500mg IV q24h. This is the latest dose that the patient had been receiving here at [facility] during last month's admission. It had been changed to that after a high trough value so will start with that again. Will check a trough before the 3rd total dose. Pharmacy Service will continue to monitor and adjust dosing as required. Follow-Up Labs: Trough Vancomycin Labs to be done on [date and time ordered]: 05/08/22 17:30
[2022-05-06] MEDS: Ipratropium/Albuterol Sulfate 3 ML AMPUL.NEB INHALATION (20:00)
[2022-05-06 21:14] LABS: M R Staph aureus DNA By PCR Negative (Negative); Probe Check PASS; Specimen Processing Control PASS
[2022-05-06] MEDS: guaiFENesin 1,200 MG Tablet 1200 MG PO (23:05)
[2022-05-06] MEDS: Metoprolol Tartrate 25 MG Tablet 12.5 MG PO (23:05)
[2022-05-06] MEDS: Pantoprazole Sodium 40 MG Tablet PO (23:05)
[2022-05-06] MEDS: Insulin Glargine-YFGN 100 UNIT/ML Pen 10 UNIT SC (23:05)
[2022-05-06] MEDS: Juven (unflavored) Packet 1 PACKET PO (23:05)
[2022-05-06] MEDS: APIXABAN 5 MG TABLET PO (23:05)
[2022-05-06 23:45] LABS: Bedside Glucose 126 mg/dL (74-106)
[2022-05-07] VITALS (15 sets, daily range): BP systolic 101–131; BP diastolic 52–81; PULSE 90–119; RESP 12–21; TEMP 36.4–36.8; O2SAT 95–99; BMI 33.0
[2022-05-07 00:57] LABS: Troponin-I HS 144 pg/mL (3.0-54.0)
[2022-05-07] MEDS: Ipratropium/Albuterol Sulfate 3 ML AMPUL.NEB INHALATION ×4 (01:03→20:07)
--- NOTE | 2022-05-07 06:07 | EX.PCM.CONCC ---
Assessment & Plan Assessment/Plan (1) Chronic respiratory failure: PLAN: Plan RECOMMENDATIONS: 1. Okay to wean from AVAPS to nasal cannula oxygen. 2. Recommend resuming baseline diuretic regimen. 3. Check TSH and ammonia levels. 4. Avoid sedating medications. 5. Continue empiric antimicrobials. Check MRSA screen. 6. Continue scheduled bronchodilators. 7. Continue Eliquis per home regimen. 8. Encourage incentive spirometer use while in bed. 9. Consider cardiology consultation. IMPRESSIONS: 1. Acute on chronic hypoxemic respiratory failure Although the patient was transferred from her detention facility with reported hypoxia, according to documentation in the ED, she was hypoxic on room air. However, the patient is supposed to be utilizing 3 L/min of oxygen at rest and 4 L/min with exertion. Her chest imaging is certainly concerning for potential CHF exacerbation coupled with concurrent pneumonia. The patient has been initiated on broad-spectrum antimicrobials, which will be continued. Plan to continue scheduled bronchodilators, given her questionable history of COPD. I would recommend that her baseline diuretic regimen be resumed. In the interim, the patient can be weaned from AVAPS therapy and transition to nasal cannula supplemental oxygen. Ideally, she should utilize PAP therapy with naps and nightly. 2. 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 Follow-up with vascular surgery as recommended. 3. Chronic kidney disease/diabetes mellitus/anemia/hypertension/hyperlipidemia/coronary artery disease/morbid obesity/hypothyroidism Complicates care, management, recovery and prognosis. Continue home medications as indicated. I would certainly avoid sedating medications for now. Check TSH as noted above. This note was generated with Gen9 dictation software. It may contain incorrect words, spelling, and punctuation that were not noted in checking the note before signing. HPI Consult Data Date of Consult: 05/07/22 HPI Narrative Reason for Consultation: Acute on chronic respiratory failure, bilateral pleural effusions and PNA HPI Narrative: The patient is a 67-year-old female, with a history as outlined below, who presented to the emergency department on May 06 with hypoxemia and shortness of breath from her detention facility. The patient was just discharged from the hospital on May 05 after having been admitted with atrial fibrillation/hyperkalemia, encephalopathy and dry gangrene of the left foot requiring AKA. The patient was seen and January [address] Mcwilliams with a questionable history of COPD, pulmonary hypertension and sleep apnea. She does have chronic hypoxemic respiratory failure, with a baseline oxygen requirement of 3 L/min at rest and 4 L/min with exertion. In addition, she has chronic heart failure with preserved ejection fraction and has been maintained on Breo Ellipta on an outpatient basis. On presentation to the emergency department, the patient was noted to be afebrile with a blood pressure of 98/82 mmHg. Initial laboratory evaluation revealed a white blood cell count of 11,000. ABG obtained on 2 L/min of supplemental oxygen demonstrated a pH of 7.4 with a PCO2 of 25 and PO2 of 107. Chemistry profile was notable for a creatinine of 1.58 along with an elevated troponin at 60 and BNP of 506. CT head demonstrated no acute cardiopulmonary process. A noncontrasted chest CT was obtained on May 06 and demonstrated bilateral pleural effusions and bilateral lower lobe consolidations. The patient was ultimately placed on AVAPS therapy and was started on empiric antimicrobials. She was admitted to the progressive care unit for further management. [facility] Medical History Acute cervical myofascial strain Acute on chronic respiratory failure with hypoxemia Acute respiratory failure with hypoxia Amputated toe of left foot Anemia Asthma Atherosclerotic heart disease of ute coronary artery without angina pectoris Atrial fibrillation Atrial fibrillation with rapid ventricular response CAD (coronary artery disease) CHF (congestive heart failure) Chronic congestive heart failure Chronic heart failure with preserved ejection fraction (HFpEF) Chronic heel ulcer Chronic respiratory failure with hypoxia, on home oxygen therapy Chronic ulcer of great toe of left foot Closed head injury Congestive heart failure (CHF) COPD (chronic obstructive pulmonary disease) Current use of insulin Decubitus ulcer of dorsum of foot, stage 2 Decubitus ulcer of left heel, stage 2 Decubitus ulcer of left heel, stage 3 Decubitus ulcer, heel, left, unstageable Depression Diabetes mellitus with diabetic polyneuropathy Diabetes type 2, controlled Diabetic foot ulcers Diverticulitis Dry gangrene Essential hypertension Former smoker History of amputation of left great toe History of non-ST elevation myocardial infarction (NSTEMI) (02/24/17) Hyperlipidemia Hypoglycemia due to type 1 diabetes mellitus Hypothyroid Morbid obesity Multiple wounds Myocardial infarct Non-rheumatic tricuspid valve insufficiency Nondisplaced fracture of distal phalanx of right great toe, initial encounter for closed fracture Nonrheumatic mitral (valve) insufficiency Obesity Obstructive sleep apnea On home O2 Renal insufficiency Secondary pulmonary arterial hypertension Thrombocytopenia Type 2 diabetes mellitus Vitamin D deficiency Home Medications aspirin 81 mg tablet,delayed release (Adult Aspirin Regimen) 81 mg PO DAILY HEART HEALTH 05/17/21 [History Last Taken 04/25/22 08:30] levothyroxine 100 mcg tablet (Synthroid) 125 mcg PO DAILY THYROID 12/13/21 [History Last Taken 04/26/22 06:00] montelukast 10 mg tablet 10 mg PO QHS ALLERGIES 12/13/21 [History Last Taken 04/25/22 20:58] sennosides 8.6 mg-docusate sodium 50 mg tablet (Senna-S) 1 tab PO BID STOOL SOFTNER 12/13/21 [History Last Taken 04/25/22 20:58] trazodone 100 mg tablet 150 mg PO QHS SLEEP 12/13/21 [History Last Taken 04/25/22 20:58] albuterol sulfate 90 mcg/actuation aerosol inhaler 2 puff inhalation Q6H PRN Shortness Of Breath 12/19/21 [History Last Taken Unknown] ferrous sulfate 325 mg (65 mg iron) tablet (FeroSul) 325 mg PO DAILY ANEMIA 12/28/21 [History Last Taken 04/25/22 11:00] insulin lispro 100 unit/mL subcutaneous pen (Humalog KwikPen (U-100) Insulin) 10 unit subcut TIDAC DIABETES 12/28/21 [History Last Taken 04/25/22 20:40] nystatin 100,000 unit/gram topical powder (Nyamyc) 1 applic topical TID IRRITATION 12/28/21 [History Last Taken 04/25/22 20:58] omeprazole 40 mg capsule,delayed release 40 mg PO BID GERD 12/28/21 [History Last Taken 04/25/22 20:58] polyethylene glycol 3350 17 gram oral powder packet 17 g PO DAILY CONSTIPATION 12/28/21 [History Last Taken 04/25/22 08:30] paroxetine HCl 20 mg tablet (Paxil) 20 mg PO DAILY MOOD 01/12/22 [History Last Taken 04/26/22 08:30] insulin detemir U-100 100 unit/mL (3 mL) subcutaneous pen (Levemir FlexTouch U-100 Insulin) 25 unit (0.25 mL) subcut QHS blood sugar #15 mL 02/24/22 [Rx Last Taken 04/24/22 19:30] meloxicam 7.5 mg tablet 7.5 mg PO DAILY PAIN 03/31/22 [History Last Taken 04/26/22 08:30] acetaminophen 325 mg tablet (Tylenol) 650 mg PO Q6H PRN PAIN/FEVER 04/26/22 [History Last Taken 04/26/22 06:00] apixaban 5 mg tablet (Eliquis) 5 mg PO BID BLOOD THINNER 04/26/22 [History Last Taken 04/26/22 08:30] arginine 7 gram-glutam 7 gram-CaHMB 1.5 mkbl-jshct-al-min oral pwd pkt (Say (with collagen)) 1 packet PO BID WOUND HEALING 04/26/22 [History Last Taken 04/25/22 11:00] bumetanide 2 mg tablet 2 mg PO TID FLUID 04/26/22 [History Last Taken 04/26/22 06:00] gabapentin 300 mg capsule 300 mg PO TID NERVE PAIN 04/26/22 [History Last Taken 04/25/22 13:30] mirtazapine 15 mg tablet 15 mg PO QHS MOOD 04/26/22 [History Last Taken 04/25/22 20:58] potassium chloride 20 mEq tablet,extended release(part/cryst) (Klor-Con M) 20 meq PO TID SUPPLEMENT 04/26/22 [History Last Taken 04/26/22 06:00] metoprolol tartrate 50 mg tablet 50 mg PO BID 05/06/22 [History Last Taken Unknown] Allergy/AdvReac Type Severity Reaction Status Date / Time doxycycline Allergy NEEDS Verified 05/06/22 11:45 FOLLOW-UP latex Allergy NEEDS Verified 05/06/22 11:45 FOLLOW-UP Sulfa (Sulfonamide Allergy Anaphylaxis Verified 05/06/22 11:45 Antibiotics) sulfur dioxide Allergy Anaphylaxis Verified 05/06/22 11:45 oxycodone AdvReac Other Verified 05/06/22 11:45 Family History Grandmother Diabetes Mother Heart disease Surgical History H/O right heart catheterization History of cataract surgery History of coronary artery stent placement (02/24/17) History of heart artery stent Tubal ligation status Social History household members: none housing: other details: [facility]. Smoking Status: Former smoker how long ago did patient quit smokin alcohol intake: former year quit: 1999 substance use type: does not use caffeine: Yes Type: carbonated beverages and tea ROS Review of Systems ROS Unobtainable: due to mental status Physical Exam Const Constitutional Narrative: Lethargic, but arouses to noxious stimulation. Currently on BiPAP. HEENT normocephalic and head/scalp atraumatic Eyes PERRL, EOMs intact bilaterally and conjunctivae normal Neck supple General: trachea midline Chest inspection of chest normal Resp normal respiratory effort Auscultation: rales and diminished lung sounds Cardio S1 normal heart sound and S2 normal heart sound Rhythm: abnormal rhythm GI normal to inspection, nondistended, normoactive bowel sounds Extremity Extremity Narrative: Right foot is wrapped. Left AKA with surgical dressings in place. General Extremity: Negative for clubbing or edema Skin General Skin Exam: venous stasis and dermatitis Neuro no focal motor deficits Psych Mood & Affect: flat affect Lab / Micro Data Result Diagrams: 05/06/22 12:42 05/06/22 12:42 Labs: Laboratory Results - last 24 hr 05/06/22 12:32: POC Glucose 146 H 05/06/22 12:42: WBC 11.9 H, RBC 2.68 L, Hgb 8.1 L, Hct 27.6 L, MCV 103.0 H, MCH 30.2, MCHC 29.3 L, RDW Std Deviation 68.9 H, RDW Coeff of Magen 18.8 H, Plt Count 130 L, MPV 11.0, Immature Gran % (Auto) 0.800, Neut % (Auto) 84.3 H, Lymph % (Auto) 9.3 L, Nicholas % (Auto) 4.9, Eos % (Auto) 0.3, Baso % (Auto) 0.4, Absolute Neuts (auto) 10.0 H, Absolute Lymphs (auto) 1.10, Nucleated RBC % 0, Differential Comment SCANNED, Hypochromasia 1+, Anisocytosis 2+, Microcytosis 1+, Macrocytosis 1+ 05/06/22 12:42: PT 32.7 H, INR 3.2, APTT 53.7 H 05/06/22 12:42: Sodium 138, Potassium 4.6, Chloride 108 H, Carbon Dioxide 24.0, Anion Gap 6, BUN 61 H, Creatinine 1.58 H, Estim Creat Clear Calc 30.24, Est GFR (MDRD) Af Amer 42 L, Est GFR (MDRD) Non-Af 35 L, BUN/Creatinine Ratio 38.6 H, Glucose 162 H, Calcium 8.9, Total Bilirubin 0.30, AST 78 H, ALT 13, Alkaline Phosphatase 182 H, Troponin I High Sens 60 H, Total Protein 5.8 L, Albumin 1.9 L, Globulin 3.9, Albumin/Globulin Ratio 0.5 L 05/06/22 12:42: Lactic Acid 0.7 05/06/22 12:42: B-Natriuretic Peptide 506.1 H 05/06/22 14:00: MRSA (PCR) Negative 05/06/22 15:23: Troponin I High Sens 97 H 05/06/22 15:49: Urine Color Yellow, Urine Clarity Clear, Urine pH 5.0, Ur Specific [place] 1.015, Urine Protein 30 H, Urine Glucose (UA) Normal, Urine Ketones Negative, Urine Occult Blood Negative, Urine Nitrite Negative, Urine Bilirubin Negative, Urine Urobilinogen Normal, Ur Leukocyte Esterase 100 H, Urine RBC 0 SEEN, Urine WBC 0-5 SEEN, Ur Squamous Epith Cells 0 SEEN, Urine Bacteria 0 SEEN, Urine Mucus 0 SEEN 05/06/22 22:59: POC Glucose 126 H 05/07/22 00:12: Troponin I High Sens 144 H* ABG Data ABG results: ABG 05/06/22 12:57 Specimen Type ART Sample Site R Brach pH 7.44 Bicarbonate Actual 24.2 Total CO2 25 Base Excess 0 O2 Saturation 98 ABG pCO2 35.7 ABG pO2 107 H O2 Delivery Device Cannula Liter Flow 2.[address] 05/06/22 12:37 IMPRESSION: No acute intracranial process. Electronically Signed: Talya España MD at 14:08 EST , Chest X-Ray 05/06/22 13:58 IMPRESSION: Right pleural effusion, cannot exclude associated right basilar atelectasis and/or pneumonia. Right perihilar fullness, may be secondary to consolidation however cannot exclude an enlarged lymph node, cannot exclude a mass. Electronically Signed: Talya España MD at 14:10 EST , Chest CT 05/06/22 14:13 IMPRESSION: Bilateral pleural effusions, right greater than left associated with bilateral lower and right middle lobe consolidation. Cardiomegaly. Pericardial effusion. Atherosclerosis. Subcutaneous edema within the right breast and visualized abdominal wall, more pronounced on the right. Electronically Signed: Talya España MD at 15:48 EST , Charges/Coding Visit Charges Inpatient E&M: 49748 Init Hosp L3
[2022-05-07] MEDS: Levothyroxine 125 MCG Tablet PO (06:42)
[2022-05-07] MEDS: Insulin Lispro 100 UNIT/ML INSULN.PEN SC ×3 (07:00→21:56)
[2022-05-07 07:12] LABS: Absolute Lymphocyte Count 1.17 X10^3/uL (0.83-4.51); Absolute Neutrophil Count 7.4 X10^3/uL (2.0-7.7); Basophil# 0.04 X10^3/uL; Basophil% 0.4 % (0-1); Eosinophil# 0.15 X10^3/uL; Eosinophils% 1.6 % (0-5); Hematocrit 28.3 % (37-47); Hemoglobin 8.3 g/dL (12.0-15.0); Lymphocyte # 1.17 X10^3/ul (0.83-4.51); Lymphocyte % 12.4 % (19-41); Mean Corp Hgb Conc 29.3 g/dL (32-36); Mean Corpuscular Volume 102.2 fL (81-99); Mean Platelet Vol. 10.6 fl (6.2-12.0); Monocyte# 0.57 X10^3/uL; NRBC Flagged by Analyzer 0 % (0-5); Neutrophil # 7.43 X10^3/uL (2.7-7.7); Neutrophil % 78.9 % (47-70); POSITIVE MORPHOLOGY YES; Platelet Count 130 K/mm3 (150-450); RBC Distribution Width CV 18.8 % (11.6-14.6); Red Blood Count 2.77 M/mm3 (4.2-5.4); White Blood Count 9.4 K/mm3 (4.4-11.0)
[2022-05-07 07:24] LABS: Differential Indicated SCAN CRITERIA MET
[2022-05-07 07:35] LABS: Bedside Glucose 140 mg/dL (74-106)
[2022-05-07 07:35] LABS: Bedside Glucose 156 mg/dL (74-106)
[2022-05-07 07:44] LABS: ALB/GLOB Ratio 0.5 RATIO (0.9-2.4); AST(SGOT) 47 U/L (15-37); Alanine Aminotransfer ALT/SGPT 10 U/L (13-56); Albumin, Serum 1.8 g/dL (3.2-5.0); Alkaline Phosphatase 176 U/L (45-117); Anion Gap 8 (5-15); BUN 67 mg/dL (7-18); BUN/Creat Ratio 47.2 RATIO (10-20); Calcium,Total 8.7 mg/dL (8.5-10.1); Chloride 110 mmol/L (98-107); Creatinine, Serum 1.42 mg/dL (0.55-1.02); EST Glomerular Filtration Rate 39 mL/min (>60); Est Glom Filt Rate - Afr Amer 48 mL/min (>60); Estimated Creatinine Clearance 35.07 ml/min; Globulin 3.9 g/dL (2.2-4.2); Glucose 174 mg/dL (74-106); Potassium 4.5 mmol/L (3.5-5.1); Protein, Total 5.7 g/dL (6.4-8.2); Sodium Level 142 mmol/L (136-145)
[2022-05-07 09:53] LABS: Anisocytosis 2+; Differential Comment SCANNED
[2022-05-07 09:55] LABS: Hypochromasia 1+
[2022-05-07 09:56] LABS: Macrocytosis 1+; Microcytosis 1+
[2022-05-07 10:10] LABS: M R Staph aureus DNA By PCR Negative (Negative); Probe Check PASS; Specimen Processing Control PASS
[2022-05-07] MEDS: Menthol/Lanolin/Calamine/Znox 113 GM Tube 1 APPLIC TOPICAL ×2 (10:36→21:56)
--- NOTE | 2022-05-07 12:07 | NURSING ---
Asked to place Midline. Bilateral UEs edematous.Only vein visualized in LUE was too small to accommodate Midline or PICC. RN notified. Attempted PIV x2 but unsuccessful. Site bruised, no active bleeding or hemtoma.
[2022-05-07 12:20] LABS: Bedside Glucose 170 mg/dL (74-106)
--- NOTE | 2022-05-07 13:17 | PN_ITS ---
Subjective Subjective Patient seen and examined. She is alert and communicative. She says her shortness of breath is improved. She denies any coughing, chest pain, palpitations, dizziness, nausea vomiting or diarrhea. She was eating breakfast at time of review. She was just discharged 2 days ago from [facility] after being admitted and managed for dry gangrene of the left foot for which she had left AKA as well as acute encephalopathy and hyperkalemia. When she go to a custodial, she got more short of breath and was saturating at 50% on nasal cannula and so was brought into the ED. Objective Data Objective Data Vital Signs: Vital Signs Temp Pulse Resp BP Pulse Ox O2 Del Method O2 Flow Rate 97.8 F 99 18 101/52 L 99 Nasal Cannula 2 05/07/22 10:05/07/22 10:05/07/22 10:05/07/22 10:05/07/22 10:05/07/22 10:05/07/22 10:25 FiO2 30 05/07/22 04:06 Oxygen Flow Rate (L/min) 2 Oxygen Delivery Method Nasal Cannula Weight: 198 lb 6.656 oz Body Mass Index (BMI) 33.0 Intake & Output: Intake and Output for Last 24 Hours 05/05/22 05/06/22 05/08/22 23:59 23:59 00:59 Intake Total 1580 / 1580 50 / 50 Output Total 550 / 550 Balance 1580 / 1580 -500 / -500 Lab / Micro Data Result Diagrams: 05/07/22 06:41 05/07/22 06:41 Labs: Laboratory Results - last 24 hr 05/06/22 12:32: POC Glucose 146 H 05/06/22 12:42: WBC 11.9 H, RBC 2.68 L, Hgb 8.1 L, Hct 27.6 L, MCV 103.0 H, MCH 30.2, MCHC 29.3 L, RDW Std Deviation 68.9 H, RDW Coeff of Magen 18.8 H, Plt Count 130 L, MPV 11.0, Immature Gran % (Auto) 0.800, Neut % (Auto) 84.3 H, Lymph % (Auto) 9.3 L, [place] % (Auto) 4.9, Eos % (Auto) 0.3, Baso % (Auto) 0.4, Absolute Neuts (auto) 10.0 H, Absolute Lymphs (auto) 1.10, Nucleated RBC % 0, Differential Comment SCANNED, Hypochromasia 1+, Anisocytosis 2+, Microcytosis 1+, Macrocytosis 1+ 05/06/22 12:42: PT 32.7 H, INR 3.2, APTT 53.7 H 05/06/22 12:42: Sodium 138, Potassium 4.6, Chloride 108 H, Carbon Dioxide 24.0, Anion Gap 6, BUN 61 H, Creatinine 1.58 H, Estim Creat Clear Calc 30.24, Est GFR (MDRD) Af Amer 42 L, Est GFR (MDRD) Non-Af 35 L, BUN/Creatinine Ratio 38.6 H, Glucose 162 H, Calcium 8.9, Total Bilirubin 0.30, AST 78 H, ALT 13, Alkaline Phosphatase 182 H, Troponin I High Sens 60 H, Total Protein 5.8 L, Albumin 1.9 L , Globulin 3.9, Albumin/Globulin Ratio 0.5 L 05/06/22 12:42: Lactic Acid 0.7 05/06/22 12:42: B-Natriuretic Peptide 506.1 H 05/06/22 14:00: MRSA (PCR) Negative 05/06/22 15:23: Troponin I High Sens 97 H 05/06/22 15:49: Urine Color Yellow, Urine Clarity Clear, Urine pH 5.0, Ur Specific [place] 1.015, Urine Protein 30 H, Urine Glucose (UA) Normal, Urine Ketones Negative, Urine Occult Blood Negative, Urine Nitrite Negative, Urine Bi lirubin Negative, Urine Urobilinogen Normal, Ur Leukocyte Esterase 100 H, Urine RBC 0 SEEN, Urine WBC 0-5 SEEN, Ur Squamous Epith Cells 0 SEEN, Urine Bacteria 0 SEEN, Urine Mucus 0 SEEN 05/06/22 22:59: POC Glucose 126 H 05/07/22 00:12: Troponin I High Sens 144 H* 05/07/22 05:06: POC Glucose 140 H 05/07/22 06:41: WBC 9.4, RBC 2.77 L, Hgb 8.3 L, Hct 28.3 L, MCV 102.2 H, MCH 30.0, MCHC 29.3 L, RDW Std Deviation 71.0 H, RDW Coeff of Magen 18.8 H, Plt Count 130 L, MPV 10.6, Immature Gran % (Auto) 0.700, Neut % (Auto) 78.9 H, Lymph % (Auto) 12.4 L, [place] % (Auto) 6.0, Eos % (Auto) 1.6, Baso % (Auto) 0.4, Absolute Neuts (auto) 7.4, Absolute Lymphs (auto) 1.17, Nucleated RBC % 0, Differential Comment SCANNED, Hypochromasia 1+, Anisocytosis 2+, Microcytosis 1+, Macrocytosis 1+ 05/07/22 06:41: Sodium 142, Potassium 4.5, Chloride 110 H, Carbon Dioxide 24.0, Anion Gap 8, BUN 67 H, Creatinine 1.42 H, Estim Creat Clear Calc 35.07, Est GFR (MDRD) Af Amer 48 L, Est GFR (MDRD) Non-Af 39 L, BUN/Creatinine Ratio 47.2 H, Glucose 174 H, Calcium 8.7, Total Bilirubin 0.50, AST 47 H, ALT 10 L, Alkaline Phosphatase 176 H, Total Protein 5.7 L, Albumin 1.8 L, Globulin 3.9, Albumin/Globulin Ratio 0.5 L 05/07/22 06:41: TSH 11.90 H 05/07/22 06:41: POC Glucose 156 H 05/07/22 07:39: MRSA (PCR) Negative 05/07/22 07:50: Ammonia 31.0 05/07/22 11:03: POC Glucose 170 H Micro: Microbiology 05/06/22 17:44 Blood Culture (Wb) - Right Forearm Blood Culture - Preliminary 05/06/22 20:00 Mucosa - Nasopharyngeal Respiratory Panel (PCR) - Final ABG Data ABG results: ABG 05/06/22 12:57 Specimen Type ART Sample Site R Brach pH 7.44 Bicarbonate Actual 24.2 Total CO2 25 Base Excess 0 O2 Saturation 98 ABG pCO2 35.7 ABG pO2 107 H O2 Delivery Device Cannula Liter Flow 2.0 Radiography Diagnostic Testing: Radiology Impression Brain CT 05/06/22 12:37 IMPRESSION: No acute intracranial process. Electronically Signed: Talya España MD at 14:08 EST , Chest X-Ray 05/06/22 13:58 IMPRESSION: Right pleural effusion, cannot exclude associated right basilar atelectasis and/or pneumonia. Right perihilar fullness, may be secondary to consolidation however cannot exclude an enlarged lymph node, cannot exclude a mass. Electronically Signed: Talya España MD at 14:10 EST Reading Location ID and State: [facility] / [place] Tel , Service support , Chest CT 05/06/22 14:13 IMPRESSION: Bilateral pleural effusions, right greater than left associated with bilateral lower and right middle lobe consolidation. Cardiomegaly. Pericardial effusion. Atherosclerosis. Subcutaneous edema within the right breast and visualized abdominal wall, more pronounced on the right. Electronically Signed: Talya España MD at 15:48 EST Reading Location ID and State: [facility] / [place] Tel , Service support , Physical Exam Const alert and oriented x3 Constitutional Narrative: obese General Appearance: cooperative HEENT normocephalic and head/scalp atraumatic Eyes EOMs intact bilaterally Neck no lymphadenopathy and supple Lymph Lymphatic: no lymphadenopathy noted and no lymphedema noted Resp Resp Narrative: diminished breath sounds bibasally, no wheezes or crackles. On 2L of oxygen by nasal canula. Cardio regular rate, regular rhythm, S1 normal heart sound, S2 normal heart sound and no murmurs GI normal to inspection, nondistended, normoactive bowel sounds, soft to palpation, non-tender and non-distended GI Narrative: obese abdomen Extremity normal capillary refill Extremity Narrative: left AKA. Right ankle wrapped in bandage Neuro CN's II-XII intact bilaterally, no focal motor deficits and no sensory deficits noted Motor Exam: strength 5/5 throughout Psych thought process normal Assessment & Plan Assessment/Plan (1) Acute encephalopathy: (2) Pneumonia involving right lung: (3) Acute hypoxemic respiratory failure: PLAN: Plan #Acute on chronic hypoxic respiratory failure due to pneumonia * Patient was saturating at 50% on nasal cannula in the ED and so was placed on nonrebreather mask and brought into the ED. She was initially requiring AVAPS but now on 2 L of oxygen. * Chest x-ray showed evidence of pneumonia. * On IV vancomycin and Zosyn. * COVID and flu test were negative. * Repeat 2D echo pending. * Blood cultures growing gram-negative rods in 1 out of 2 samples. speciation pending * #Acute encephalopathy * May be due to pneumonia though she does have intermittent lethargy. CT of the brain showed no acute changes. * Has improved and she was able to medicate and was able to eat breakfast today. #Non-STEMI * Troponins were elevated. She does have a history of CAD. * Consideration about whether this is due to demand ischemia in light of hypoxia. On aspirin * EKG showed no acute ST changes. * Troponins trended up to 144 from 60 on admission. * 2D echo ordered and pending. Already on Eliquis. * Will add on high intensity statin. * Consult cardiology. * #Left AKA: This was done on 05/02/2022. Done on account of gangrene. Stable. #Atrial fibrillation: On Eliquis and metoprolol #Type 2 diabetes mellitus: On insulin sliding scale. Checks ACHS. #Hypothyroidism: On Synthroid #CKD stage IIIb: Creatinine at baseline. Will monitor. Charges/Coding Visit Charges Inpatient E&M: 99038 [facility] Hosp L3
[2022-05-07 17:00] LABS: Bedside Glucose 163 mg/dL (74-106)
[2022-05-07] MEDS: Glucerna Shake 120 ML LIQUID PO ×2 (17:17→21:56)
[2022-05-07] MEDS: Vancomycin IV 500 MG/100 ML BAG 100 MG IV (17:26)
[2022-05-07] MEDS: Metoprolol Tartrate 25 MG Tablet 12.5 MG PO ×2 (17:43→21:51)
[2022-05-07] MEDS: Juven (unflavored) Packet 1 PACKET PO (21:51)
[2022-05-07] MEDS: APIXABAN 5 MG TABLET PO (21:51)
[2022-05-07] MEDS: guaiFENesin 1,200 MG Tablet 1200 MG PO (21:51)
[2022-05-07] MEDS: Insulin Glargine-YFGN 100 UNIT/ML Pen 10 UNIT SC (21:57)
[2022-05-07] MEDS: Pantoprazole Sodium 40 MG Tablet PO (22:00)
[2022-05-07] MEDS: Atorvastatin Calcium 40 MG Tablet PO (22:00)
[2022-05-07] MEDS: Acetaminophen 325 MG Tablet 650 MG PO (22:23)
[2022-05-07 22:45] LABS: Bedside Glucose 154 mg/dL (74-106)
[2022-05-07] MEDS: MELATONIN 3 MG TABLET PO (23:10)
--- NOTE | 2022-05-07 23:44 | CPS ---
Pt is in too much pain to go on bipap. we revisit her later and try again.
[2022-05-08] VITALS (32 sets, daily range): BP systolic 78–196; BP diastolic 56–70; PULSE 85–130; RESP 12–24; TEMP 36.5–37.1; O2SAT 89–100; BMI 33.0
--- NOTE | 2022-05-08 00:03 | PCM.HOSP.N ---
Hospitalist Note Patient with AF w/ RVR, ongoing, noted to have had elevated rates throught the afternoon, missed AM medication from discussion with RN secondary to encephalopathy and given dose late afternoon/early evening. Currently still rate 130s, BP SBP 90s. Will dose with amiodarone bolus and transition to drip given issues with giving her oral medications with encephalopathy although currently mildly improved per staff but also BP range currently lower.
[2022-05-08] MEDS: Amiodarone 360 MG in Dextrose 5% Viaflo Bag 192.8 ML 16.7 MG CONT INF (01:18)
--- NOTE | 2022-05-08 05:06 | CPS ---
pt stayed on nasal O2 all night. HR was elevated, started new meds.
[2022-05-08] MEDS: Levothyroxine 125 MCG Tablet PO (05:55)
[2022-05-08] MEDS: Insulin Lispro 100 UNIT/ML INSULN.PEN SC ×4 (06:38→21:56)
[2022-05-08 06:43] LABS: Absolute Lymphocyte Count 0.98 X10^3/uL (0.83-4.51); Absolute Neutrophil Count 10.9 X10^3/uL (2.0-7.7); Basophil# 0.05 X10^3/uL; Basophil% 0.4 % (0-1); Eosinophil# 0.21 X10^3/uL; Eosinophils% 1.6 % (0-5); Hematocrit 27.4 % (37-47); Hemoglobin 7.8 g/dL (12.0-15.0); Lymphocyte # 0.98 X10^3/ul (0.83-4.51); Lymphocyte % 7.6 % (19-41); Mean Corp Hgb Conc 28.5 g/dL (32-36); Mean Corpuscular Hgb 29.8 pg (27.0-32.0); Mean Corpuscular Volume 104.6 fL (81-99); Mean Platelet Vol. 10.6 fl (6.2-12.0); Monocyte# 0.81 X10^3/uL; Monocyte% 6.2 % (0-10); NRBC Flagged by Analyzer 0 % (0-5); Neutrophil # 10.85 X10^3/uL (2.7-7.7); Neutrophil % 83.7 % (47-70); POSITIVE MORPHOLOGY YES; Platelet Count 140 K/mm3 (150-450); RBC Distribution Width CV 18.8 % (11.6-14.6); RBC Distribution Width SD 71.1 fl (35.1-43.9); Red Blood Count 2.62 M/mm3 (4.2-5.4)
[2022-05-08 06:55] LABS: Differential Indicated SCAN CRITERIA MET
[2022-05-08 07:04] LABS: Anion Gap 7 (5-15); BUN 66 mg/dL (7-18); BUN/Creat Ratio 49.3 RATIO (10-20); Calcium,Total 8.8 mg/dL (8.5-10.1); Chloride 110 mmol/L (98-107); Creatinine, Serum 1.34 mg/dL (0.55-1.02); EST Glomerular Filtration Rate 42 mL/min (>60); Est Glom Filt Rate - Afr Amer 51 mL/min (>60); Estimated Creatinine Clearance 37.16 ml/min; Glucose 188 mg/dL (74-106); Potassium 4.5 mmol/L (3.5-5.1); Sodium Level 141 mmol/L (136-145); T4 Free Direct 2.07 ng/dL (0.76-1.46)
[2022-05-08 07:25] LABS: Bedside Glucose 180 mg/dL (74-106)
[2022-05-08 07:37] LABS: Anisocytosis 1+
--- NOTE | 2022-05-08 08:00 | ECHOL_ITS ---
Reason For Study: Pericardial Effusion Procedure This was a limited 2D transthoracic echocardiogram. The study was technically difficult. Exam performed portable in patient room. Left Ventricle Normal LV size. Left ventricular systolic function is normal. The estimated ejection fraction is 55 %. No regional wall motion abnormalities noted. Right Ventricle Mildly dilated right ventricle. Mild to moderate global right ventricular systolic dysfunction. Atria The left atrium is mildly enlarged. The right atrium is mildly enlarged. Mitral Valve Normal mitral valve. Tricuspid Valve Normal tricuspid valve. Pulmonary artery systolic pressure is 50 mmHg. Moderate (2+) eccentric tricuspid valve insufficiency. Aortic Valve Trisinus/trileaflet aortic valve. Pulmonic Valve Normal pulmonic valve. Great Vessels Normal aortic root. The pulmonary artery is normal size. Normal inferior vena cava. Pericardium/Pleural Small pericardial effusion. MMode/2D Measurements & Calculations LVIDd: 3.8 cm IVSd: 0.91 cm LA dimension: 4.3 cm LVIDs: 2.4 cm LVPWd: 1.2 cm FS: 37.4 % LAV(MOD-sp4): 64.8 ml LA A4 area: 23.0 cm2 RA A4 area: 27.2 cm2 Doppler Measurements & Calculations Lat Peak E' Timothy: 6.0 cm/sec Med Peak E' Timothy: 6.8 cm/sec TR max timothy: 341.7 cm/sec TR max P.7 mmHg ECHO/Echo, Limited Study Interpretation Summary Moderate (2+) eccentric tricuspid valve insufficiency. Normal LV size. Left ventricular systolic function is normal. The estimated ejection fraction is 55 %. Small pericardial effusion. Pulmonary artery systolic pressure is 50 mmHg. Ordering Physician: Coco Romero Performed By: Loyd Nunez RCS
--- NOTE | 2022-05-08 08:43 | PN.CC_ITS ---
Assessment & Plan Assessment/Plan (1) Chronic respiratory failure: PLAN: Plan RECOMMENDATIONS: 1. Okay to transition to AVAPS with sleep and rescue only 2. Continue diuretic therapy as tolerated 3. Check TSH and ammonia levels. 4. Avoid sedating medications. 5. Continue empiric antimicrobials. Likely discontinue vancomycin if MRSA swab negative 6. Continue scheduled bronchodilators. 7. Continue Eliquis per home regimen. 8. Encourage incentive spirometer use while in bed. 9. Consider cardiology consultation for A-fib with RVR. IMPRESSIONS: 1. Acute on chronic hypoxemic respiratory failure Although the [facility] with reported hypoxia, according to documentation in the ED, she was hypoxic on room air. However, the patient is supposed to be utilizing 3 L/min of oxygen at rest and 4 L/min with exertion. Initial x-ray was suggestive of a component of CHF and patient did respond to diuretic therapy. The patient has been initiated on broad-spectrum antimicrobials, which will be continued given gram-negative rods noted in blood culture. Likely okay to discontinue vancomycin if nasal MRSA swab is negative. Plan to continue scheduled bronchodilators, given her questionable history of COPD. Continue with diuresis as tolerated. Likely okay to transition to BiPAP with sleep 2. 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 Follow-up with vascular surgery as recommended. 3. Chronic kidney disease/diabetes mellitus/anemia/hypertension/hyperlipidemia/coronary artery disease/morbid obesity/hypothyroidism Complicates care, management, recovery and prognosis. Continue home medications as indicated. I would certainly avoid sedating medications for now. Patient may need alteration in levothyroxine dosing given A-fib with RVR, tachycardia and elevated free T4. Defer to hospitalist. This note was generated with [employer] dictation software. It may contain incorrect words, spelling, and punctuation that were not noted in checking the note before signing. Subjective Subjective Patient did okay overnight. Patient was found to convert to A-fib with RVR and interventions were noted. Patient able to tolerate room air this morning and feels her breathing is subjectively improved. Patient does complain of a neuropathic [id number]-[id number] of her right foot with any movement. Objective Data Objective Data Vital Signs: Vital Signs Temp Pulse Resp BP Pulse Ox O2 Del Method O2 Flow Rate 36.7 C 107 H 19 H 106/57 L 100 Nasal Cannula 2 05/08/22 06:00 05/08/22 07:00 05/08/22 07:00 05/08/22 07:00 05/08/22 07:00 05/08/22 07:00 05/08/22 07:00 FiO2 21 05/07/22 15:32 Oxygen Flow Rate (L/min) 2 Oxygen Delivery Method Nasal Cannula Weight: 90 kg Body Mass Index (BMI) 33.0 Intake & Output: Intake and Output for Last 24 Hours 05/06/22 05/07/22 05/08/22 22:59 23:59 23:59 Intake Total 248.20 / 248.20 Output Total 400 / 400 Balance -151.80 / -151.80 Lab / Micro Data Attestation: I reviewed the patient's lab results. Result Diagrams: 05/08/22 05:38 05/08/22 05:38 Labs: Laboratory Results - last 24 hr 05/07/22 06:41: Differential Comment SCANNED, Hypochromasia 1+, Anisocytosis 2+, Microcytosis 1+, Macrocytosis 1+ 05/07/22 07:39: MRSA (PCR) Negative 05/07/22 07:50: Ammonia 31.0 05/07/22 11:03: POC Glucose 170 H 05/07/22 16:31: POC Glucose 163 H 05/07/22 21:44: POC Glucose 154 H 05/08/22 05:38: WBC 13.0 H, RBC 2.62 L, Hgb 7.8 L, Hct 27.4 L, MCV 104.6 H, MCH 29.8, MCHC 28.5 L, RDW Std Deviation 71.1 H, RDW Coeff of Magen 18.8 H, Plt Count 140 L, MPV 10.6, Immature Gran % (Auto) 0.500, Neut % (Auto) 83.7 H, Lymph % (Auto) 7.6 L, [place] % (Auto) 6.2, Eos % (Auto) 1.6, Baso % (Auto) 0.4, Absolute Neuts (auto) 10.9 H, Absolute Lymphs (auto) 0.98, Nucleated RBC % 0, Anisocytosis 1+ 05/08/22 05:38: Sodium 141, Potassium 4.5, Chloride 110 H, Carbon Dioxide 24.0, Anion Gap 7, BUN 66 H, Creatinine 1.34 H, Estim Creat Clear Calc 37.16, Est GFR (MDRD) Af Amer 51 L, Est GFR (MDRD) Non-Af 42 L, BUN/Creatinine Ratio 49.3 H, Glucose 188 H, Calcium 8.8, Free T4 2.07 H 05/08/22 06:37: POC Glucose 180 H Micro: Microbiology 05/06/22 17:44 Blood Culture (Wb) - Right Forearm Blood Culture - Preliminary 05/06/22 20:00 Mucosa - Nasopharyngeal Respiratory Panel (PCR) - Final Physical Exam Const alert Constitutional Narrative: No conversational dyspnea noted General Appearance: cooperative HEENT normocephalic and head/scalp atraumatic Eyes PERRL, EOMs intact bilaterally and conjunctivae normal Neck supple General: trachea midline Chest inspection of chest normal Resp normal respiratory effort Auscultation: diminished lung sounds; Negative for rales, rhonchi or wheezes Cardio S1 normal heart sound, S2 normal heart sound, no murmurs, no rub and no gallops Cardio Narrative: A-fib with RVR noted on telemetry. Rate: tachycardic Rhythm: abnormal rhythm GI normal to inspection, nondistended, normoactive bowel sounds Extremity Extremity Narrative: Right foot is wrapped. Left AKA with surgical dressings in place. General Extremity: Negative for clubbing or edema Skin General Skin Exam: venous stasis and dermatitis Neuro CN's II-XII intact bilaterally and no focal motor deficits Psych Activity / Motor Behavior: restless Mood & Affect: flat affect Charges/Coding Visit Charges Inpatient E&M: 83590 Subs Hosp L2
[2022-05-08] MEDS: Glucerna Shake 120 ML LIQUID PO ×3 (08:58→18:13)
[2022-05-08] MEDS: Acetaminophen 325 MG Tablet 650 MG PO (08:58)
[2022-05-08] MEDS: Juven (unflavored) Packet 1 PACKET PO (08:59)
[2022-05-08] MEDS: Aspirin E.C. 81 MG Tablet PO (08:59)
[2022-05-08] MEDS: Pantoprazole Sodium 40 MG Tablet PO ×2 (08:59→21:55)
[2022-05-08] MEDS: Paroxetine 20 MG Tablet PO (09:00)
[2022-05-08] MEDS: APIXABAN 5 MG TABLET PO ×2 (09:00→21:55)
--- NOTE | 2022-05-08 09:00 | PN.HOSP_ITS ---
Reason for Visit Reason for Visit: Shortness of breath Subjective Subjective Ms. Lincoln is a 67-year-old white female who presented to the emergency department on 05/06/2022 with shortness of breath. She currently resides at a nursing facility. She was recently discharged from the hospital on 05/05/2022 after being admitted with atrial fibrillation/hyperkalemia, encephalopathy and dry gangrene of the left foot. She underwent amputation of her left lower extremity on 05/02/2022. She wears 3 L of oxygen at rest and 4 L with exertion. Upon presentation she was noted to be hypotensive but afebrile. She had a mildly elevated white count 11,000 and her ABG on 2 L supplemental oxygen was unremarkable. Noncontrasted CT of her chest was obtained and found to show bilateral pleural effusions with lower lobe consolidation/atelectasis and a pericardial effusion. He was placed on broad-spectrum antibiotics and admitted to the medical floor. She has done well from a respiratory standpoint. Echocardiogram is pending. Her initial blood cultures are showing gram-negative rods. Patient somnolent at the time of my evaluation however per discussion with nursing she was alert and oriented earlier and was able to take her p.o. meds without any difficulty. Cardiology was by and stopped her amiodarone drip and wanted to continue rate control with diltiazem. Objective Data Objective Data Vital Signs: Vital Signs Temp Pulse Resp BP Pulse Ox O2 Del Method O2 Flow Rate 98.1 F 107 H 19 H 106/57 L 100 Nasal Cannula 2 05/08/22 06:00 05/08/22 07:00 05/08/22 07:00 05/08/22 07:00 05/08/22 07:00 05/08/22 07:00 05/08/22 07:00 FiO2 21 05/07/22 15:32 Oxygen Flow Rate (L/min) 2 Oxygen Delivery Method Nasal Cannula Weight: 90 kg Body Mass Index (BMI) 33.0 Intake & Output: Intake and Output for Last 24 Hours 05/06/22 05/07/22 05/08/22 22:59 23:59 23:59 Intake Total 248.20 / 248.20 Output Total 400 / 400 Balance -151.80 / -151.80 Lab / Micro Data Result Diagrams: 05/08/22 05:38 05/08/22 05:38 Labs: Laboratory Results - last 24 hr 05/07/22 06:41: Differential Comment SCANNED, Hypochromasia 1+, Anisocytosis 2+, Microcytosis 1+, Macrocytosis 1+ 05/07/22 07:39: MRSA (PCR) Negative 05/07/22 11:03: POC Glucose 170 H 05/07/22 16:31: POC Glucose 163 H 05/07/22 21:44: POC Glucose 154 H 05/08/22 05:38: WBC 13.0 H, RBC 2.62 L, Hgb 7.8 L, Hct 27.4 L, MCV 104.6 H, MCH 29.8, MCHC 28.5 L, RDW Std Deviation 71.1 H, RDW Coeff of Magen 18.8 H, Plt Count 140 L, MPV 10.6, Immature Gran % (Auto) 0.500, Neut % (Auto) 83.7 H, Lymph % (Auto) 7.6 L, [place] % (Auto) 6.2, Eos % (Auto) 1.6, Baso % (Auto) 0.4, Absolute Neuts (auto) 10.9 H, Absolute Lymphs (auto) 0.98, Nucleated RBC % 0, Anisocytosis 1+ 05/08/22 05:38: Sodium 141, Potassium 4.5, Chloride 110 H, Carbon Dioxide 24.0, Anion Gap 7, BUN 66 H, Creatinine 1.34 H, Estim Creat Clear Calc 37.16, Est GFR (MDRD) Af Amer 51 L, Est GFR (MDRD) Non-Af 42 L, BUN/Creatinine Ratio 49.3 H, Glucose 188 H, Calcium 8.8, Free T4 2.07 H 05/08/22 06:37: POC Glucose 180 H Micro: Microbiology 05/06/22 17:44 Blood Culture (Wb) - Right Forearm Blood Culture - Preliminary 05/06/22 20:00 Mucosa - Nasopharyngeal Respiratory Panel (PCR) - Final Physical Exam Const no apparent distress Constitutional Narrative: Sleepy, morbidly obese, white female, lying in bed sleeping, arousable but difficult, per nursing she was wide-awake earlier, appears much older than stated age and appears chronically ill HEENT head/scalp atraumatic and moist oral mucous membranes HEENT Narrative: A dentulous, Mallampati 3, no thrush Head and Scalp: normocephalic Resp normal respiratory effort, no retractions, no use of accessory muscles and clear to auscultation bilaterally Resp Narrative: Diminished at the bases bilaterally Auscultation: Negative for rales, rhonchi or wheezes Cardio S1 normal heart sound, S2 normal heart sound, no murmurs, no rub, no gallops and no clicks Cardio Narrative: Mild tachycardia with irregularly irregular rhythm GI normal to inspection, nondistended, normoactive bowel sounds, soft to palpation and non-tender Extremity Extremity Narrative: Left lower extremity AKA-wound reviewed via pictures and appears to be healing well, no upper or lower extremity cyanosis clubbing or edema Skin Skin Narrative: AKA on left as noted above, right with chronic wounds reviewed on pictures- appears stable Neuro moves all extremities and no focal motor deficits Neuro Narrative: Decreased right lower extremity sensation, patient was sleepy Psych Psych Narrative: Sleepy and difficult to assess Assessment & Plan Assessment/Plan (1) Elevated troponin: (2) Acute encephalopathy: (3) Chronic respiratory failure: (4) Pneumonia involving right lung: (5) Gram-negative bacteremia: (6) Paroxysmal atrial fibrillation with RVR: PLAN: Plan Acute on chronic hypoxic and hypercapnic respiratory failure possible healthcare associated pneumonia/severe pulmonary artery hypertension -Currently on 2 L nasal cannula and had reported hypoxia on presentation on room air however she is supposed to be on 3 to 4 L of oxygen at baseline -Use AVAPS as needed -Patient did respond to diuretic therapy -Will restart Bumex at a lower dose 1 mg twice daily -Strict I's and O's -Respiratory viral panel and COVID and flu are negative -Unable to produce a sputum culture -Continue Zosyn discontinue vancomycin -Sodium restricted diet -Daily weights -Continue fluid restriction of 1750 cc--> patient indicates her fluid intake at the nursing facility has been very liberal Gram-negative bacteremia -Blood culture showed gram-negative bacteremia with identifications and sensitivities are pending -MRSA screen is negative therefore discontinue vancomycin -Continue Zosyn NSTEMI type II -Likely related to A-fib with RVR and acute infection -2D echo is pending -Cardiology was consulted by previous service and consult is pending -Continue aspirin and statin -Moderate intensity dose statin ordered this admission Pericardial effusion -Noted on CT 05/06/2022 -Echo pending Dry gangrene left lower extremity -Status post AKA 05/02/2022 -Wound care following -Continued outpatient follow-up with vascular surgery -Dressing changes as ordered A-fib with RVR -Patient was ordered amiodarone bolus and drip overnight -Continue anticoagulation -Patient with known history of A-fib -Cardiology following and discontinued amiodarone and plans on addressing heart rates with diltiazem DM-2 -Continue long-acting insulin, but increase from 10 units nightly to 20 units at at bedtime -Continue Accu-Cheks as ordered -Blood sugars are overall well controlled with fasting this morning 188 -Continue sliding scale -Most recent hemoglobin A1c was 7.5 from 12/16/2021 and appears to be consistently stable Chronic macrocytic anemia -Serum creatinine appears to be stable -No signs of acute blood loss -Continue to monitor -Continue iron supplementation MIKE on CKD stage 3B -Baseline serum creatinine appears to run between 1.3 and 1.6 -Current serum creatinine is 1.34 -Suspect patient likely has diabetic nephropathy at baseline Chronic thrombocytopenia -Counts are stable -Continue to monitor Diabetic neuropathy -Continue home gabapentin -As needed Tylenol Hypertension/hyperlipidemia/CAD status post stents -Patient was statin allergy -Continue home aspirin -Continue metoprolol 12.5 mg p.o. twice daily Hypothyroidism -Continue home Synthroid 125 mg -TSH on 05/07/2022 was 11.9 and free T4 was 2.07 -Suspect medication noncompliance -Continue Synthroid as noted above and recheck TSH in 6 weeks Morbid obesity -BMI 33 but patient has a left AKA -Recommend weight loss -Complicates treatment, prognosis, outcomes Insomnia -Continue home as needed melatonin Debility -PT/OT following Depression -Continue Paxil DVT prophylaxis -Continue Eliquis CODE STATUS -Full code Charges/Coding Visit Charges Inpatient E&M: 02133 Subs Hosp L2
[2022-05-08] MEDS: Menthol/Lanolin/Calamine/Znox 113 GM Tube 1 APPLIC TOPICAL ×2 (09:01→21:56)
[2022-05-08] MEDS: guaiFENesin 1,200 MG Tablet 1200 MG PO ×2 (09:01→21:55)
[2022-05-08] MEDS: Nystatin Powder 15gm Bottle 1 APPLIC TOPICAL ×2 (09:03→21:57)
--- NOTE | 2022-05-08 09:56 | WOUNDNOTE ---
wound photo: right heel
--- NOTE | 2022-05-08 09:57 | WOUNDNOTE ---
wound photo: left AKA
--- NOTE | 2022-05-08 10:29 | PCM.CONS.C ---
Assessment & Plan Assessment/Plan (1) Paroxysmal atrial fibrillation: PLAN: Presently rate controlled with amiodarone infusion. Stop amiodarone. Rate control with diltiazem. Patient on Eliquis. Recommend monitoring hemoglobin carefully as patient is baseline anemic. (2) Elevated troponin: PLAN: Likely type II. No further cardiac evaluation for ischemic heart disease at present in view of patient's significant comorbid conditions. (3) Anemia: PLAN: Follow as per internal medicine and critical care. (4) COPD exacerbation: PLAN: Pulmonology following. (5) Chronic respiratory failure: PLAN: Secondary to #4 above. (6) Heart failure with preserved ejection fraction: PLAN: Repeat echocardiogram. HPI Consult Data Date of Consult: 05/08/22 HPI Narrative HPI Narrative: The patient has been admitted to the hospital as a transfer [facility] her [facility] with complaints of hypoxemia and increasing shortness of breath. Also a diagnosis of encephalopathy has been made. We have been consulted for mildly elevated troponins and for atrial fibrillation with rapid ventricular response. Patient presently is somnolent and very difficult to arouse. History is therefore obtained from the chart. [facility] Medical History (Updated 05/08/22 @ 10:[address] Kelechi Rose MD) Acute cervical myofascial strain Acute on chronic respiratory failure with hypoxemia Acute respiratory failure with hypoxia Amputated toe of left foot Anemia Asthma Atherosclerotic heart disease of [place] coronary artery without angina pectoris Atrial fibrillation Atrial fibrillation with rapid ventricular response CAD (coronary artery disease) CHF (congestive heart failure) Chronic congestive heart failure Chronic heart failure with preserved ejection fraction (HFpEF) Chronic heel ulcer Chronic respiratory failure with hypoxia, on home oxygen therapy Chronic ulcer of great toe of left foot Closed head injury Congestive heart failure (CHF) COPD (chronic obstructive pulmonary disease) Current use of insulin Decubitus ulcer of dorsum of foot, stage 2 Decubitus ulcer of left heel, stage 2 Decubitus ulcer of left heel, stage 3 Decubitus ulcer, heel, left, unstageable Depression Diabetes mellitus with diabetic polyneuropathy Diabetes type 2, controlled Diabetic foot ulcers Diverticulitis Dry gangrene Essential hypertension Former smoker History of amputation of left great toe History of non-ST elevation myocardial infarction (NSTEMI) (02/24/17) Hyperlipidemia Hypoglycemia due to type 1 diabetes mellitus Hypothyroid Morbid obesity Multiple wounds Myocardial infarct Non-rheumatic tricuspid valve insufficiency Nondisplaced fracture of distal phalanx of right great toe, initial encounter for closed fracture Nonrheumatic mitral (valve) insufficiency Obesity Obstructive sleep apnea On home O2 Renal insufficiency Secondary pulmonary arterial hypertension Thrombocytopenia Type 2 diabetes mellitus Vitamin D deficiency Home Medications aspirin 81 mg tablet,delayed release (Adult Aspirin Regimen) 81 mg PO DAILY HEART HEALTH 05/17/21 [History Last Taken 04/25/22 08:30] levothyroxine 100 mcg tablet (Synthroid) 125 mcg PO DAILY THYROID 12/13/21 [History Last Taken 04/26/22 06:00] montelukast 10 mg tablet 10 mg PO QHS ALLERGIES 12/13/21 [History Last Taken 04/25/22 20:58] sennosides 8.6 mg-docusate sodium 50 mg tablet (Senna-S) 1 tab PO BID STOOL SOFTNER 12/13/21 [History Last Taken 04/25/22 20:58] trazodone 100 mg tablet 150 mg PO QHS SLEEP 12/13/21 [History Last Taken 04/25/22 20:58] albuterol sulfate 90 mcg/actuation aerosol inhaler 2 puff inhalation Q6H PRN Shortness Of Breath 12/19/21 [History Last Taken Unknown] ferrous sulfate 325 mg (65 mg iron) tablet (FeroSul) 325 mg PO DAILY ANEMIA 12/28/21 [History Last Taken 04/25/22 11:00] insulin lispro 100 unit/mL subcutaneous pen (Humalog KwikPen (U-100) Insulin) 10 unit subcut TIDAC DIABETES 12/28/21 [History Last Taken 04/25/22 20:40] nystatin 100,000 unit/gram topical powder (Nyamyc) 1 applic topical TID IRRITATION 12/28/21 [History Last Taken 04/25/22 20:58] omeprazole 40 mg capsule,delayed release 40 mg PO BID GERD 12/28/21 [History Last Taken 04/25/22 20:58] polyethylene glycol 3350 17 gram oral powder packet 17 g PO DAILY CONSTIPATION 12/28/21 [History Last Taken 04/25/22 08:30] paroxetine HCl 20 mg tablet (Paxil) 20 mg PO DAILY MOOD 01/12/22 [History Last Taken 04/26/22 08:30] insulin detemir U-100 100 unit/mL (3 mL) subcutaneous pen (Levemir FlexTouch U-100 Insulin) 25 unit (0.25 mL) subcut QHS blood sugar #15 mL 02/24/22 [Rx Last Taken 04/24/22 19:30] meloxicam 7.5 mg tablet 7.5 mg PO DAILY PAIN 03/31/22 [History Last Taken 04/26/22 08:30] acetaminophen 325 mg tablet (Tylenol) 650 mg PO Q6H PRN PAIN/FEVER 04/26/22 [History Last Taken 04/26/22 06:00] apixaban 5 mg tablet (Eliquis) 5 mg PO BID BLOOD THINNER 04/26/22 [History Last Taken 04/26/22 08:30] arginine 7 gram-glutam 7 gram-CaHMB 1.5 fqpx-flake-ar-min oral pwd pkt (Say (with collagen)) 1 packet PO BID WOUND HEALING 04/26/22 [History Last Taken 04/25/22 11:00] bumetanide 2 mg tablet 2 mg PO TID FLUID 04/26/22 [History Last Taken 04/26/22 06:00] gabapentin 300 mg capsule 300 mg PO TID NERVE PAIN 04/26/22 [History Last Taken 04/25/22 13:30] mirtazapine 15 mg tablet 15 mg PO QHS MOOD 04/26/22 [History Last Taken 04/25/22 20:58] potassium chloride 20 mEq tablet,extended release(part/cryst) (Klor-Con M) 20 meq PO TID SUPPLEMENT 04/26/22 [History Last Taken 04/26/22 06:00] metoprolol tartrate 50 mg tablet 50 mg PO BID 05/06/22 [History Last Taken Unknown] Allergy/AdvReac Type Severity Reaction Status Date / Time doxycycline Allergy NEEDS Verified 05/06/22 11:45 FOLLOW-UP latex Allergy NEEDS Verified 05/06/22 11:45 FOLLOW-UP Sulfa (Sulfonamide Allergy Anaphylaxis Verified 05/06/22 11:45 Antibiotics) sulfur dioxide Allergy Anaphylaxis Verified 05/06/22 11:45 oxycodone AdvReac Other Verified 05/06/22 11:45 Family History Grandmother Diabetes Mother Heart disease Surgical History H/O right heart catheterization History of cataract surgery History of coronary artery stent placement (02/24/17) History of heart artery stent Tubal ligation status Social History household members: none housing: other details: [facility]. Smoking Status: Former smoker how long ago did patient quit smokin alcohol intake: former year quit: 1999 substance use type: does not use caffeine: Yes Type: carbonated beverages and tea Physical Exam Narrative Somnolent. Very difficult to arouse. Appears comfortable. Respirations unlabored. Diminished breath sounds bilaterally. Heart sounds 1 and 2 noted. Irregularly irregular. Abdomen soft. Nontender. Left AKA is noted. Risk Stratification Risk Stratification Applicable: No Objective Data Vital Signs: Vital Signs Temp Pulse Resp BP Pulse Ox O2 Del Method O2 Flow Rate 98.2 F 104 H 19 H 95/58 L 96 Nasal Cannula 2 05/08/22 08:00 05/08/22 09:00 05/08/22 09:00 05/08/22 09:06 05/08/22 09:13 05/08/22 09:31 05/08/22 09:31 FiO2 21 05/07/22 15:32 Oxygen Flow Rate (L/min) 2 Oxygen Delivery Method Nasal Cannula Weight: 198 lb 6.656 oz Body Mass Index (BMI) 33.0 Intake & Output: Intake and Output for Last 24 Hours 05/06/22 05/07/22 05/08/22 22:59 23:59 23:59 Intake Total 331.60 / 331.60 Output Total 400 / 400 Balance -68.40 / -68.40 Lab / Micro Data Attestation: I reviewed the patient's lab results. Result Diagrams: 05/08/22 05:38 05/08/22 05:38 Labs: Laboratory Results - last 24 hr 05/07/22 11:03: POC Glucose 170 H 05/07/22 16:31: POC Glucose 163 H 05/07/22 21:44: POC Glucose 154 H 05/08/22 05:38: WBC 13.0 H, RBC 2.62 L, Hgb 7.8 L, Hct 27.4 L, MCV 104.6 H, MCH 29.8, MCHC 28.5 L, RDW Std Deviation 71.1 H, RDW Coeff of Magen 18.8 H, Plt Count 140 L, MPV 10.6, Immature Gran % (Auto) 0.500, Neut % (Auto) 83.7 H, Lymph % (Auto) 7.6 L, [place] % (Auto) 6.2, Eos % (Auto) 1.6, Baso % (Auto) 0.4, Absolute Neuts (auto) 10.9 H, Absolute Lymphs (auto) 0.98, Nucleated RBC % 0, Anisocytosis 1+ 05/08/22 05:38: Sodium 141, Potassium 4.5, Chloride 110 H, Carbon Dioxide 24.0, Anion Gap 7, BUN 66 H, Creatinine 1.34 H, Estim Creat Clear Calc 37.16, Est GFR (MDRD) Af Amer 51 L, Est GFR (MDRD) Non-Af 42 L, BUN/Creatinine Ratio 49.3 H, Glucose 188 H, Calcium 8.8, Free T4 2.07 H 05/08/22 06:37: POC Glucose 180 H Micro: Microbiology 05/06/22 17:44 Blood Culture (Wb) - Right Forearm Blood Culture - Preliminary Gram variable marita 05/06/22 20:00 Mucosa - Nasopharyngeal Respiratory Panel (PCR) - Final Rhythm Strip Rhythm Strip: A-fib Cardiology Labs/Tests 05/08/22 05:38: WBC 13.0 H, RBC 2.62 L, Hgb 7.8 L, Hct 27.4 L, MCV 104.6 H, MCH 29.8, MCHC 28.5 L, Plt Count 140 L, MPV 10.6, Immature Gran % (Auto) 0.500, Neut % (Auto) 83.7 H, Lymph % (Auto) 7.6 L, [place] % (Auto) 6.2, Eos % (Auto) 1.6, Baso % (Auto) 0.4, Absolute Neuts (auto) 10.9 H, Nucleated RBC % 0 05/08/22 05:38: Sodium 141, Potassium 4.5, Chloride 110 H, Carbon Dioxide 24.0, Anion Gap 7, BUN 66 H, Creatinine 1.34 H, Est GFR (MDRD) Af Amer 51 L, Est GFR (MDRD) Non-Af 42 L, BUN/Creatinine Ratio 49.3 H, Glucose 188 H, Calcium 8.8 Rhythm: EKG: Atrial fibrillation. Nonspecific ST changes ECHO: Stress Test: Cardiac Cath: PCI: CT Surgery: Holter monitor: EPS: PPM: CXR: Chest CT Scan:
[2022-05-08 11:05] LABS: Bedside Glucose 151 mg/dL (74-106)
[2022-05-08] MEDS: Ipratropium/Albuterol Sulfate 3 ML AMPUL.NEB INHALATION ×2 (11:35→19:22)
[2022-05-08 11:50] LABS: Blood Gas Specimen Type VEN; PEEP 8; RR 12; VBG BASE EXCESS -2 mmol/L (-1.0-3.5); VBG Bicarbonate 24 mmol/L (22-26); VBG PO2 114 mmHg (25-40); VBG SO2 98 % (50-70); VBG TCO2 25 mmol/L (23-33); VBG pCO2 44.6 mmHg (41-51); VBG pH 7.33 (7.32-7.42)
--- NOTE | 2022-05-08 11:55 | CPS ---
unable, not responsive
[2022-05-08] MEDS: Ferrous Sulfate 325 MG Tablet PO (12:24)
[2022-05-08] MEDS: Bumetanide 0.5 MG Tablet 1 MG PO ×2 (12:25→21:55)
--- NOTE | 2022-05-08 12:27 | CASEMGMT ---
GREG sent updates to [employer] via [employer]. Clare Kaufman OPERATING SYSTEMS PROGRAMMER [employer] SALESPERSON
--- NOTE | 2022-05-08 15:40 | CHAPLAIN ---
Type of Pastoral Visit _x__ Initial Visit ___ Follow-up Visit ___ On-call Visit ___ General Patient Visit ___ Spiritual Assessment ___ Family Conference ___ Bereavement ___ Rapid Response ___ Code Blue ___ Other (describe below) Pastoral Care Referral From _x__ Patient ___ Family ___ Nurse ___ Physician ___ Secondary Market Manager ___ City Planner ___ Other (describe below) Sacrament/Intervention _x__ Active listening ___ Anointing ___ Mormon ___ Bereavement ___ Communion ___ Charo exploration ___ ___ Life review _x__ Prayer ___ Reconciliation ___ Sacrament of Sick _x__ Supportive presence ___ Wedding ___ Other (describe below) Pastoral Comments upon entering room the patient appeared to be sleeping but then called out for help; pt oriented to where she is and asked about need; pt call button light used as pt verifies she wants help with her foot; aide came to room and will communicate need to RN; moved call button closer to patient hand; offered support; pt welcomed a prayer
[2022-05-08 17:31] LABS: Bedside Glucose 150 mg/dL (74-106)
[2022-05-08] MEDS: dilTIAZem 60 MG Tablet PO ×2 (18:13→23:57)
[2022-05-08] MEDS: Atorvastatin Calcium 40 MG Tablet PO (21:55)
[2022-05-08] MEDS: Metoprolol Tartrate 25 MG Tablet 12.5 MG PO (21:55)
[2022-05-08 22:50] LABS: Bedside Glucose 164 mg/dL (74-106)
[2022-05-09] VITALS (11 sets, daily range): BP systolic 97–118; BP diastolic 53–74; PULSE 80–105; RESP 16–20; TEMP 36.3–36.6; O2SAT 94–100; BMI 33.5
[2022-05-09] MEDS: Ipratropium/Albuterol Sulfate 3 ML AMPUL.NEB INHALATION ×4 (01:39→19:54)
[2022-05-09] MEDS: dilTIAZem 60 MG Tablet PO ×3 (05:42→17:20)
[2022-05-09] MEDS: Levothyroxine 125 MCG Tablet PO (05:42)
[2022-05-09 06:07] LABS: Absolute Lymphocyte Count 1.04 X10^3/uL (0.83-4.51); Absolute Neutrophil Count 8.2 X10^3/uL (2.0-7.7); Basophil# 0.04 X10^3/uL; Basophil% 0.4 % (0-1); Eosinophil# 0.23 X10^3/uL; Eosinophils% 2.3 % (0-5); Hemoglobin 7.8 g/dL (12.0-15.0); Lymphocyte # 1.04 X10^3/ul (0.83-4.51); Lymphocyte % 10.3 % (19-41); Mean Corp Hgb Conc 28.9 g/dL (32-36); Mean Corpuscular Volume 103.8 fL (81-99); Mean Platelet Vol. 10.9 fl (6.2-12.0); Monocyte# 0.53 X10^3/uL; Monocyte% 5.2 % (0-10); NRBC Flagged by Analyzer 0 % (0-5); Neutrophil # 8.19 X10^3/uL (2.7-7.7); Neutrophil % 81.1 % (47-70); POSITIVE MORPHOLOGY YES; Platelet Count 132 K/mm3 (150-450); RBC Distribution Width CV 18.8 % (11.6-14.6); RBC Distribution Width SD 70.5 fl (35.1-43.9); White Blood Count 10.1 K/mm3 (4.4-11.0)
[2022-05-09 06:17] LABS: Differential Indicated SCAN CRITERIA MET
[2022-05-09 06:26] LABS: Anion Gap 7 (5-15); BUN 62 mg/dL (7-18); BUN/Creat Ratio 50.4 RATIO (10-20); Calcium,Total 8.6 mg/dL (8.5-10.1); Chloride 110 mmol/L (98-107); Creatinine, Serum 1.23 mg/dL (0.55-1.02); EST Glomerular Filtration Rate 46 mL/min (>60); Est Glom Filt Rate - Afr Amer 56 mL/min (>60); Estimated Creatinine Clearance 40.48 ml/min; Glucose 181 mg/dL (74-106); Magnesium 1.6 mg/dL (1.6-2.6); Phosphorus 2.6 mg/dL (2.5-4.9); Potassium 4.1 mmol/L (3.5-5.1); Sodium Level 141 mmol/L (136-145)
[2022-05-09] MEDS: Insulin Lispro 100 UNIT/ML INSULN.PEN SC ×4 (06:31→22:08)
[2022-05-09 06:56] LABS: Anisocytosis 2+; Differential Comment SCANNED; Macrocytosis 1+; Polychromasia RARE
[2022-05-09 07:00] LABS: Bedside Glucose 166 mg/dL (74-106)
--- NOTE | 2022-05-09 08:35 | PN.CC_ITS ---
Assessment & Plan Assessment/Plan (1) Chronic respiratory failure: PLAN: Plan RECOMMENDATIONS: 1. Okay to transition to AVAPS with sleep and rescue only 2. Continue diuretic therapy as tolerated 3. Await species and sensitivities of gram-negative marita in blood 4. Avoid sedating medications. 5. Continue empiric antimicrobials. Agree with discontinuation of vancomycin 6. Continue scheduled bronchodilators. 7. Continue Eliquis per home regimen. 8. Encourage incentive spirometer use while in bed. 9. Continue improved rate control IMPRESSIONS: 1. Acute on chronic hypoxemic respiratory failure/pulmonary hypertension Although the patient was transferred from her long-term facility with reported hypoxia, according to documentation in the ED, she was hypoxic on room air. However, the patient is supposed to be utilizing 3 L/min of oxygen at rest and 4 L/min with exertion. Initial x-ray was suggestive of a component of CHF and patient did respond to diuretic therapy. The patient has been initiated on broad-spectrum antimicrobials, which will be continued given gram-negative rods noted in blood culture. Species and sensitivity are still pending. Patient was taken off of vancomycin yesterday which is appropriate in my opinion. Plan to continue scheduled bronchodilators, given her questionable history of COPD. Continue with diuresis as tolerated. Likely okay to transition to BiPAP with sleep. Continue diuresis should help with pulmonary artery pressures. Patient will ultimately need a right heart catheterization for quantification clarification of pulmonary pressures to classify type as patient has risk factors for multiple types including type I, type II and type III. 2. 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 Follow-up with vascular surgery as recommended. Patient is growing a gram-negative in the blood. Await species and sensitivities prior to providing more recommendations 3. Chronic kidney disease/diabetes mellitus/an emia/hypertension/hyperlipidemia/coronary artery disease/morbid obesity/hypothyroidism Complicates care, management, recovery and prognosis. Continue home medications as indicated. I would certainly avoid sedating medications for now. Patient may need alteration in levothyroxine dosing given A-fib with RVR, tachycardia and elevated free T4. Defer to hospitalist. This note was generated with [employer] dictation software. It may contain incorrect words, spelling, and punctuation that were not noted in checking the note before signing. Subjective Subjective Patient did okay overnight. Patient reportedly desaturates quickly while on room air. Rate is better controlled compared to previous. Patient subjectively feels unchanged compared to previous. Objective Data Objective Data Vital Signs: Vital Signs Temp Pulse Resp BP Pulse Ox O2 Del Method O2 Flow Rate 36.6 C 86 17 108/60 100 Nasal Cannula 2 05/09/22 04:25 05/09/22 05:41 05/09/22 04:25 05/09/22 05:41 05/09/22 04:25 05/09/22 04:25 05/09/22 04:25 FiO2 30 05/08/22 23:50 Oxygen Flow Rate (L/min) 2 Oxygen Delivery Method Nasal Cannula Weight: 91.4 kg Body Mass Index (BMI) 33.5 Intake & Output: Intake and Output for Last 24 Hours 05/07/22 05/08/22 05/09/22 23:59 23:59 23:59 Intake Total 440.05 / 440.05 50 / 50 Output Total 1450 / 1450 300 / 300 Balance -1009.95 / -1009.95 -250 / -250 Lab / Micro Data Attestation: I reviewed the patient's lab results. Result Diagrams: 05/09/22 05:18 05/09/22 05:18 Labs: Laboratory Results - last 24 hr 05/08/22 10:39: POC Glucose 151 H 05/08/22 16:40: POC Glucose 150 H 05/08/22 21:50: POC Glucose 164 H 05/09/22 05:18: WBC 10.1, RBC 2.60 L, Hgb 7.8 L, Hct 27.0 L, MCV 103.8 H, MCH 30.0, MCHC 28.9 L, RDW Std Deviation 70.5 H, RDW Coeff of Magen 18.8 H, Plt Count 132 L, MPV 10.9, Immature Gran % (Auto) 0.700, Neut % (Auto) 81.1 H, Lymph % (Auto) 10.3 L, [place] % (Auto) 5.2, Eos % (Auto) 2.3, Baso % (Auto) 0.4, Absolute Neuts (auto) 8.2 H, Absolute Lymphs (auto) 1.04, Nucleated RBC % 0, Differential Comment SCANNED, Polychromasia RARE, Anisocytosis 2+, Macrocytosis 1+ 05/09/22 05:18: Sodium 141, Potassium 4.1, Chloride 110 H, Carbon Dioxide 24.0, Anion Gap 7, BUN 62 H, Creatinine 1.23 H, Estim Creat Clear Calc 40.48, Est GFR (MDRD) Af Amer 56 L, Est GFR (MDRD) Non-Af 46 L, BUN/Creatinine Ratio 50.4 H, Glucose 181 H, Calcium 8.6, Phosphorus 2.6, Magnesium 1.6 05/09/22 06:30: POC Glucose 166 H Micro: Microbiology 05/06/22 17:44 Blood Culture (Wb) - Right Forearm Blood Culture - Preliminary Gram negative marita 05/06/22 20:00 Mucosa - Nasopharyngeal Respiratory Panel (PCR) - Final ABG Data ABG results: ABG 05/08/22 11:45 Specimen Type ASHANTI VBG pH 7.33 VBG pO2 114 H VBG HCO3 24 VBG Total CO2 25 VBG O2 Sat (Calc) 98 H VBG Base Excess -2 L POC Mix VBG pCO2 Pt Tmp 44.6 Respiration Rate 12 POC PEEP 8 Clinical Comments avaps 24 Radiography Diagnostic Testing: Radiology Impression Echocardiogram 05/08/22 08:00 Interpretation Summary Moderate (2+) eccentric tricuspid valve insufficiency. Normal LV size. Left ventricular systolic function is normal. The estimated ejection fraction is 55 %. Small pericardial effusion. Pulmonary artery systolic pressure is 50 mmHg. Ordering Physician: Coco Romero Performed By: Loyd Nunez RCS Rhythm Strip Rhythm Strip: A-fib Rate: 86 Physical Exam Const alert Constitutional Narrative: No conversational dyspnea noted General Appearance: cooperative HEENT normocephalic and head/scalp atraumatic Eyes PERRL, EOMs intact bilaterally and conjunctivae normal Neck supple General: trachea midline Chest inspection of chest normal Resp normal respiratory effort Auscultation: diminished lung sounds; Negative for rales, rhonchi or wheezes Cardio regular rate, S1 normal heart sound, S2 normal heart sound, no murmurs, no rub and no gallops Rhythm: abnormal rhythm GI normal to inspection, nondistended, normoactive bowel sounds Extremity Extremity Narrative: Right foot is wrapped. Left AKA with surgical dressings in place. General Extremity: Negative for clubbing or edema Skin General Skin Exam: venous stasis and dermatitis Neuro CN's II-XII intact bilaterally and no focal motor deficits Psych Activity / Motor Behavior: restless Mood & Affect: flat affect Charges/Coding Visit Charges Inpatient E&M: 33895 Subs Hosp L2
[2022-05-09] MEDS: Menthol/Lanolin/Calamine/Znox 113 GM Tube 1 APPLIC TOPICAL ×2 (08:54→22:08)
[2022-05-09] MEDS: Aspirin E.C. 81 MG Tablet PO (08:54)
[2022-05-09] MEDS: Bumetanide 0.5 MG Tablet 1 MG PO ×2 (08:54→22:07)
[2022-05-09] MEDS: APIXABAN 5 MG TABLET PO ×2 (08:55→22:07)
[2022-05-09] MEDS: Juven (unflavored) Packet 1 PACKET PO (08:56)
[2022-05-09] MEDS: Metoprolol Tartrate 25 MG Tablet 12.5 MG PO ×2 (08:56→22:07)
[2022-05-09] MEDS: guaiFENesin 1,200 MG Tablet 1200 MG PO ×2 (08:57→22:07)
[2022-05-09] MEDS: Nystatin Powder 15gm Bottle 1 APPLIC TOPICAL (08:57)
[2022-05-09] MEDS: Paroxetine 20 MG Tablet PO (08:57)
[2022-05-09] MEDS: Pantoprazole Sodium 40 MG Tablet PO ×2 (08:58→22:07)
[2022-05-09] MEDS: Senna/Docusate Sodium 1 Tablet 2 TABLET PO (09:53)
[2022-05-09] MEDS: Glucerna Shake 120 ML LIQUID PO (09:53)
[2022-05-09] MEDS: Ferrous Sulfate 325 MG Tablet PO (11:23)
[2022-05-09] MEDS: Acetaminophen 325 MG Tablet 650 MG PO (11:26)
[2022-05-09 11:51] LABS: Bedside Glucose 215 mg/dL (74-106)
--- NOTE | 2022-05-09 13:13 | CASEMGMT ---
GREG was reviewing patient's chart and noted in the nursing handoff that family wants [facility] at discharge. SW called patient's son Aydin and left him a voice mail asking him to please call SW and let SW know if he would like patient to return to [facility] or if he wants [facility]. SW asked if SW does not answer to please leave a message with his preference. Patient is not currently alert and oriented X3. SW did send a referral to [facility] as patient is ready for discharge so GREG needs to proceed with d/c planning. Clare Kaufman [employer]
--- NOTE | 2022-05-09 14:28 | CASEMGMT ---
[facility] accepted patient. SW will await patient's son's phone call to verify this is what he and patient want. Clare DASILVA
--- NOTE | 2022-05-09 15:18 | PCM.PN.HOSP ---
Reason for Visit Reason for Visit: Shortness of breath Subjective Subjective Patient more awake today but still confused. Was telling the wound care nurse she was 37 years old and that she wanted to talk to her mother. She has no complaints at this time. Awaiting finalized blood cultures to narrow antibiotics. Objective Data Objective Data Vital Signs: Vital Signs Temp Pulse Resp BP Pulse Ox O2 Del Method O2 Flow Rate 97.7 F L 100 18 112/74 96 Nasal Cannula 2 05/09/22 10:25 05/09/22 10:25 05/09/22 10:25 05/09/22 10:25 05/09/22 10:25 05/09/22 14:00 05/09/22 10:25 FiO2 30 05/08/22 23:50 Oxygen Flow Rate (L/min) 2 Oxygen Delivery Method Nasal Cannula Weight: 91.4 kg Body Mass Index (BMI) 33.5 Intake & Output: Intake and Output for Last 24 Hours 05/07/22 05/08/22 05/09/22 23:59 23:59 23:59 Intake Total 440.05 / 440.05 340 / 340 Output Total 1450 / 1450 650 / 650 Balance -1009.95 / -1009.95 -310 / -310 Lab / Micro Data Result Diagrams: 05/09/22 05:18 05/09/22 05:18 Labs: Laboratory Results - last 24 hr 05/08/22 16:40: POC Glucose 150 H 05/08/22 21:50: POC Glucose 164 H 05/09/22 05:18: WBC 10.1, RBC 2.60 L, Hgb 7.8 L, Hct 27.0 L, MCV 103.8 H, MCH 30.0, MCHC 28.9 L, RDW Std Deviation 70.5 H, RDW Coeff of Magen 18.8 H, Plt Count 132 L, MPV 10.9, Immature Gran % (Auto) 0.700, Neut % (Auto) 81.1 H, Lymph % (Auto) 10.3 L, [place] % (Auto) 5.2, Eos % (Auto) 2.3, Baso % (Auto) 0.4, Absolute Neuts (auto) 8.2 H, Absolute Lymphs (auto) 1.04, Nucleated RBC % 0, Differential Comment SCANNED, Polychromasia RARE, Anisocytosis 2+, Macrocytosis 1+ 05/09/22 05:18: Sodium 141, Potassium 4.1, Chloride 110 H, Carbon Dioxide 24.0, Anion Gap 7, BUN 62 H, Creatinine 1.23 H, Estim Creat Clear Calc 40.48, Est GFR (MDRD) Af Amer 56 L, Est GFR (MDRD) Non-Af 46 L, BUN/Creatinine Ratio 50.4 H, Glucose 181 H, Calcium 8.6, Phosphorus 2.6, Magnesium 1.6 05/09/22 06:30: POC Glucose 166 H 05/09/22 11:21: POC Glucose 215 H Micro: Microbiology 05/07/22 00:12 Blood Culture (Wb) - Left Hand Blood Culture - Preliminary No growth in 48 hours. 05/06/22 17:44 Blood Culture (Wb) - Right Forearm Blood Culture - Preliminary Gram negative marita 05/06/22 20:00 Mucosa - Nasopharyngeal Respiratory Panel (PCR) - Final Radiography Diagnostic Testing: Radiology Impression Echocardiogram 05/08/22 08:00 Interpretation Summary Moderate (2+) eccentric tricuspid valve insufficiency. Normal LV size. Left ventricular systolic function is normal. The estimated ejection fraction is 55 %. Small pericardial effusion. Pulmonary artery systolic pressure is 50 mmHg. Ordering Physician: Coco Romero Performed By: Loyd Nunez RCS Rhythm Strip Rhythm Strip: A-fib Rate: 86 Physical Exam Const alert and no apparent distress Constitutional Narrative: Sleepy, morbidly obese, white female, sitting up in bed watching television, oriented to self and president of [facility] but not place or time, appears much older than stated age and appears chronically ill General Appearance: cooperative HEENT normocephalic, head/scalp atraumatic and moist oral mucous membranes HEENT Narrative: Edentulous, no thrush, Mallampati 2 Resp normal respiratory effort, no retractions, no use of accessory muscles and clear to auscultation bilaterally Resp Narrative: Diminished at the bases bilaterally Auscultation: Negative for rales, rhonchi or wheezes Cardio regular rate, S1 normal heart sound, S2 normal heart sound, no murmurs, no rub, no gallops and no clicks; Negative for regular rhythm Cardio Narrative: irregularly irregular rhythm GI normal to inspection, nondistended, normoactive bowel sounds, soft to palpation, non-tender and non-distended GI Narrative: obese abdomen Extremity normal capillary refill Extremity Narrative: Left lower extremity AKA, dressing in place clean dry and intact, no upper or lower extremity cyanosis clubbing or edema Skin Skin Narrative: AKA on left as noted above, right lower extremity dressing in place, cap refill is 2+ Neuro moves all extremities and no focal motor deficits Neuro Narrative: Decreased right lower extremity sensation, oriented to self and president Speech: speech normal Psych affect normal Psych Narrative: Very pleasant, mildly confused but mental status is improving Assessment & Plan Assessment/Plan (1) Elevated troponin: (2) Acute encephalopathy: (3) Chronic respiratory failure: (4) Gram-negative bacteremia: (5) Paroxysmal atrial fibrillation with RVR: PLAN: Plan Acute on chronic hypoxic and hypercapnic respiratory failure possible healthcare associated pneumonia/severe pulmonary artery hypertension -Currently on 2 L nasal cannula and had reported hypoxia on presentation on room air however she is supposed to be on 3 to 4 L of oxygen at baseline -Use AVAPS as needed -Patient did respond to diuretic therapy -Continue Bumex 1 mg p.o. twice daily and will give an extra dose of IV 1 mg x 1 dose -Strict I's and O's -Respiratory viral panel and COVID and flu are negative -Continue Zosyn -Sodium restricted diet -Daily weights -Continue fluid restriction of 1750 cc--> patient indicates her fluid intake at the nursing facility has been very liberal Gram-negative bacteremia -Blood culture showed gram-negative bacteremia with identifications and sensitivities are pending -1 of 2 cultures were positive for gram-negative marita second blood culture was obtained after antibiotics were given -Continue Zosyn and narrow antibiotics once finalized sensitivities are obtained NSTEMI type II -Likely related to A-fib with RVR and acute infection -Echocardiogram shows an EF of 55% with a small pericardial effusion and a pulmonary artery systolic pressure of 50 mmHg -Cardiology was consulted by previous service and consult is pending -Continue aspirin and statin -Continue moderate dose statin Toxic/metabolic encephalopathy -Mental status appears to be improving -Suspect related to acute underlying infection -Continue to monitor Pericardial effusion -Noted on CT 05/06/2022 -Echocardiogram shows an EF of 55% with a small pericardial effusion and a pulmonary artery systolic pressure of 50 mmHg -Diuresis as noted above Dry gangrene left lower extremity -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 twice daily -Continue Cardizem 60 mg every 6 -Continue Mobic metoprolol 12.5 mg p.o. twice daily -Cardiology following DM-2 -Continue long-acting insulin, but increase from 20 units nightly to 28 units at at bedtime -Continue Accu-Cheks as ordered -Blood sugars are overall well controlled with fasting this morning 181 -Continue sliding scale -Most recent hemoglobin A1c was 7.5 from 12/16/2021 and appears to be consistently stable Chronic macrocytic anemia -Serum creatinine appears to be stable -No signs of acute blood loss -Continue to monitor -Continue iron supplementation CKD stage 3B -Baseline serum creatinine appears to run between 1.3 and 1.6 -Current serum creatinine is 1.23 and actually improved some with diuresis -Suspect patient likely has diabetic nephropathy at baseline Chronic thrombocytopenia -Counts are stable--> 132,000 today -Continue to monitor Diabetic neuropathy -Continue home gabapentin -As needed Tylenol Hypertension/hyperlipidemia/CAD status post stents -Patient was statin allergy -Continue home aspirin -Continue metoprolol 12.5 mg p.o. twice daily -Continue Cardizem 60 every 6 Hypothyroidism -Continue home Synthroid 125 mg -TSH on 05/07/2022 was 11.9 and free T4 was 2.07 -Suspect medication noncompliance -Continue Synthroid as noted above and recheck TSH in 6 weeks Morbid obesity -BMI 33 but patient has a left AKA -Recommend weight loss -Complicates treatment, prognosis, outcomes Insomnia -Continue home as needed melatonin Debility -PT/OT following Depression -Continue Paxil DVT prophylaxis -Continue Eliquis CODE STATUS -Full code Charges/Coding Visit Charges Inpatient E&M: 03017 Subs Hosp L2
[2022-05-09] MEDS: Bumetanide 1 MG/4 ML Vial IV (17:18)
[2022-05-09 17:35] LABS: Bedside Glucose 240 mg/dL (74-106)
[2022-05-09] MEDS: Atorvastatin Calcium 40 MG Tablet PO (22:07)
[2022-05-09] MEDS: Insulin Glargine-YFGN 100 UNIT/ML Pen 20 UNIT SC (22:09)
[2022-05-09 22:40] LABS: Bedside Glucose 226 mg/dL (74-106)
[2022-05-10] VITALS (8 sets, daily range): BP systolic 97–114; BP diastolic 56–67; PULSE 86–101; RESP 14–20; TEMP 36.4–37; O2SAT 95–100; BMI 33.2
[2022-05-10] MEDS: Levothyroxine 125 MCG Tablet PO (05:08)
[2022-05-10] MEDS: dilTIAZem 60 MG Tablet PO ×3 (05:08→17:00)
[2022-05-10 05:23] LABS: Absolute Lymphocyte Count 1.14 X10^3/uL (0.83-4.51); Absolute Neutrophil Count 6.6 X10^3/uL (2.0-7.7); Basophil# 0.04 X10^3/uL; Basophil% 0.5 % (0-1); Eosinophil# 0.28 X10^3/uL; Eosinophils% 3.2 % (0-5); Hematocrit 26.7 % (37-47); Hemoglobin 7.9 g/dL (12.0-15.0); Lymphocyte # 1.14 X10^3/ul (0.83-4.51); Lymphocyte % 13.1 % (19-41); Mean Corp Hgb Conc 29.6 g/dL (32-36); Mean Corpuscular Hgb 30.2 pg (27.0-32.0); Mean Corpuscular Volume 101.9 fL (81-99); Mean Platelet Vol. 10.9 fl (6.2-12.0); Monocyte# 0.55 X10^3/uL; Monocyte% 6.3 % (0-10); NRBC Flagged by Analyzer 0 % (0-5); Neutrophil # 6.63 X10^3/uL (2.7-7.7); Neutrophil % 76.3 % (47-70); POSITIVE MORPHOLOGY YES; Platelet Count 136 K/mm3 (150-450); RBC Distribution Width CV 19.1 % (11.6-14.6); RBC Distribution Width SD 71.4 fl (35.1-43.9); Red Blood Count 2.62 M/mm3 (4.2-5.4); White Blood Count 8.7 K/mm3 (4.4-11.0)
[2022-05-10 05:28] LABS: Differential Indicated SCAN CRITERIA MET
[2022-05-10 05:38] LABS: Anisocytosis 1+; Differential Comment SCANNED; Hypochromasia 1+; Macrocytosis 1+
[2022-05-10 05:52] LABS: Anion Gap 4 (5-15); BUN 58 mg/dL (7-18); BUN/Creat Ratio 47.5 RATIO (10-20); Calcium,Total 8.6 mg/dL (8.5-10.1); Chloride 110 mmol/L (98-107); Creatinine, Serum 1.22 mg/dL (0.55-1.02); EST Glomerular Filtration Rate 47 mL/min (>60); Est Glom Filt Rate - Afr Amer 57 mL/min (>60); Estimated Creatinine Clearance 40.82 ml/min; Glucose 200 mg/dL (74-106); Potassium 3.7 mmol/L (3.5-5.1); Sodium Level 141 mmol/L (136-145)
[2022-05-10] MEDS: Insulin Lispro 100 UNIT/ML INSULN.PEN SC ×3 (06:24→17:00)
[2022-05-10 06:50] LABS: Bedside Glucose 176 mg/dL (74-106)
[2022-05-10] MEDS: Ipratropium/Albuterol Sulfate 3 ML AMPUL.NEB INHALATION ×2 (06:56→18:49)
[2022-05-10] MEDS: Bumetanide 0.5 MG Tablet 1 MG PO (09:18)
[2022-05-10] MEDS: guaiFENesin 1,200 MG Tablet 1200 MG PO (09:19)
[2022-05-10] MEDS: APIXABAN 5 MG TABLET PO (09:19)
[2022-05-10] MEDS: Metoprolol Tartrate 25 MG Tablet 12.5 MG PO (09:19)
[2022-05-10] MEDS: Juven (unflavored) Packet 1 PACKET PO (09:19)
[2022-05-10] MEDS: Menthol/Lanolin/Calamine/Znox 113 GM Tube 1 APPLIC TOPICAL (09:20)
[2022-05-10] MEDS: Aspirin E.C. 81 MG Tablet PO (09:20)
[2022-05-10] MEDS: Nystatin Powder 15gm Bottle 1 APPLIC TOPICAL (09:20)
[2022-05-10] MEDS: Ferrous Sulfate 325 MG Tablet PO (09:20)
[2022-05-10] MEDS: Pantoprazole Sodium 40 MG Tablet PO (09:20)
[2022-05-10] MEDS: Paroxetine 20 MG Tablet PO (09:20)
--- NOTE | 2022-05-10 10:32 | PN.CC_ITS ---
Assessment & Plan Assessment/Plan (1) Chronic respiratory failure: PLAN: Plan RECOMMENDATIONS: 1. Okay to transition to AVAPS with sleep and rescue only 2. Continue diuretic therapy as tolerated 3. Patient will require a total of 7 days of antibiotics 4. Avoid sedating medications. 5. Defer to hospitalist on timing of transition to p.o. antibiotics 6. Continue scheduled bronchodilators. 7. Continue Eliquis per home regimen. 8. Encourage incentive spirometer use while in bed. 9. Continue improved rate control IMPRESSIONS: 1. Acute on chronic hypoxemic respiratory failure/pulmonary hypertension Although the [facility] hypoxia, according to documentation in the ED, she was hypoxic on room air. However, the patient is supposed to be utilizing 3 L/min of oxygen at rest and 4 L/min with exertion. Initial x-ray was suggestive of a component of CHF and patient did respond to diuretic therapy. The patient is growing Proteus mirabilis and her blood showing intermediate sensitivity to Levaquin, resistance to ciprofloxacin but sensitivity to penicillins. Plan to continue scheduled bronchodilators, given her questionable history of COPD. Continue with diuresis as tolerated. Patient will likely need to continue BiPAP with sleep. Continue diuresis should help with pulmonary artery pressures. Patient will ultimately need a right heart catheterization for quantification clarification of pulmonary pressures to classify type as patient has risk factors for multiple types including type I, type II and type III. 2. 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 Follow-up with vascular surgery as recommended. Patient is growing a gram-negative in the blood. Await species and sensitivities prior to providing more recommendations 3. Chronic kidney disease/diabetes mellitus/anemia/hyperten mando/hyperlipidemia/coronary artery disease/morbid obesity/hypothyroidism Complicates care, management, recovery and prognosis. Continue home medications as indicated. I would certainly avoid sedating medications for now. Patient may need alteration in levothyroxine dosing given A-fib with RVR, tachycardia and elevated free T4. Defer to hospitalist. This note was generated with Hull dictation software. It may contain incorrect words, spelling, and punctuation that were not noted in checking the note before signing. Subjective Subjective Patient resting comfortably on my evaluation. Patient states she still has some foot pain, but overall feels subjectively okay. Objective Data Objective Data Vital Signs: Vital Signs Temp Pulse Resp BP Pulse Ox O2 Del Method O2 Flow Rate 36.4 C L 86 14 107/59 L 97 Nasal Cannula 2 05/10/22 09:00 05/10/22 09:19 05/10/22 09:00 05/10/22 09:00 05/10/22 09:00 05/10/22 09:00 05/10/22 09:00 FiO2 30 05/08/22 23:50 Oxygen Flow Rate (L/min) 2 Oxygen Delivery Method Nasal Cannula Weight: 90.6 kg Body Mass Index (BMI) 33.2 Intake & Output: Intake and Output for Last 24 Hours 05/08/22 05/09/22 05/10/22 23:59 23:59 23:59 Intake Total 440.05 / 440.05 630 / 630 100 / 100 Output Total 1450 / 1450 1750 / 1750 300 / 300 Balance -1009.95 / -1009.95 -1120 / -1120 -200 / -200 Lab / Micro Data Attestation: I reviewed the patient's lab results. Result Diagrams: 05/10/22 04:48 05/10/22 04:48 Labs: Laboratory Results - last 24 hr 05/09/22 11:21: POC Glucose 215 H 05/09/22 17:14: POC Glucose 240 H 05/09/22 22:03: POC Glucose 226 H 05/10/22 04:48: WBC 8.7, RBC 2.62 L, Hgb 7.9 L, Hct 26.7 L, MCV 101.9 H, MCH 30.2, MCHC 29.6 L, RDW Std Deviation 71.4 H, RDW Coeff of Magen 19.1 H, Plt Count 136 L, MPV 10.9, Immature Gran % (Auto) 0.600, Neut % (Auto) 76.3 H, Lymph % (Auto) 13.1 L, [place] % (Auto) 6.3, Eos % (Auto) 3.2, Baso % (Auto) 0.5, Absolute Neuts (auto) 6.6, Absolute Lymphs (auto) 1.14, Nucleated RBC % 0, Differential Comment SCANNED, Hypochromasia 1+, Anisocytosis 1+, Macrocytosis 1+ 05/10/22 04:48: Sodium 141, Potassium 3.7, Chloride 110 H, Carbon Dioxide 27.0, Anion Gap 4 L, BUN 58 H, Creatinine 1.22 H, Estim Creat Clear Calc 40.82, Est GFR (MDRD) Af Amer 57 L, Est GFR (MDRD) Non-Af 47 L, BUN/Creatinine Ratio 47.5 H , Glucose 200 H, Calcium 8.6 05/10/22 06:23: POC Glucose 176 H Micro: Microbiology 05/06/22 17:44 Blood Culture (Wb) - Right Forearm Blood Culture - Final Proteus mirabilis 05/07/22 00:12 Blood Culture (Wb) - Left Hand Blood Culture - Preliminary No growth in 48 hours. 05/06/22 20:00 Mucosa - Nasopharyngeal Respiratory Panel (PCR) - Final Rhythm Strip Rhythm Strip: A-fib Rate: 84 Physical Exam Const alert Constitutional Narrative: No conversational dyspnea noted. Wakes easily to voice. General Appearance: cooperative HEENT normocephalic and head/scalp atraumatic Eyes PERRL, EOMs intact bilaterally and conjunctivae normal Neck supple General: trachea midline Chest inspection of chest normal Resp normal respiratory effort Auscultation: diminished lung sounds; Negative for rales, rhonchi or wheezes Cardio regular rate, S1 normal heart sound, S2 normal heart sound, no murmurs, no rub a nd no gallops Rhythm: abnormal rhythm GI normal to inspection, nondistended, normoactive bowel sounds Extremity Extremity Narrative: Right foot is wrapped. Left AKA with surgical dressings in place. General Extremity: Negative for clubbing or edema Skin General Skin Exam: venous stasis and dermatitis Neuro CN's II-XII intact bilaterally and no focal motor deficits Psych Activity / Motor Behavior: restless Mood & Affect: flat affect Charges/Coding Visit Charges Inpatient E&M: 61301 Subs Hosp L2
--- NOTE | 2022-05-10 11:10 | CASEMGMT ---
Addendum entered by Clare Kaufman 05/10/22 11:27: SW received a return call from patient's son Judd. SW asked if the plan was for patient to go to [facility]. Judd thought so, but he would call his brother Aydin who is the Healthcare Power of Respite Provider and confirm. Judd called SW back and said they would like for patient to go to [facility]. SW let him know patient will be discharged to [facility] today. GREG sent a message via [facility] to [facility] notifying them patient will not be returning. GREG also called [facility] and spoke with Donna. GREG sent a message to Janine at [facility] notifying her physician would like to send patient today. Await response from Janine to make sure patient can come today. Plan: d/c to [facility] under intermediate level of care. Clare DASILVA Original Note: GREG did not hear from patient's son and patient is still in and out of confusion. GREG called both of patient's sons and left them voice mails requesting return phone call regarding d/c plan as patient is ready. [facility] accepted patient. Clare DASILVA
--- NOTE | 2022-05-10 11:59 | CASEMGMT ---
Patient can go to [facility] today. SW notified physician. Plan: d/c to [facility] under intermediate level of care. Clare DASILVA
[2022-05-10 12:25] LABS: Bedside Glucose 209 mg/dL (74-106)
--- NOTE | 2022-05-10 13:28 | PCM.TXEXTCAR ---
Diet Diet Order/Speech Therapy: 05/07/22 11:08 Diet: Carbohydrate Controlled Dietary Modifications:: No Added Salt Is pt able to select menu?: No Fluid restriction:: 1750 mL Routine Orders/Code Status O2 Liters per Minute: 2 O2 Frequency: Continuous Keep PO Greater than or Equal to (%): 88 Routine Lab Work: CBC (In 5 to 7 days) and BMP (In 5 to 7 days) Code Status: Full Code Wound(s) coccyx: Wound Type: Pressure Injury Left buttock: Wound Type: Pressure Injury left above the knee amputation: Wound Type: surgical incision s/p L AKA Dressing Change: dry dressing R heel: Wound Type: Pressure Injury Dressing Change: well padded dressing left antecubital: Wound Type: Skin Tear right ear: Wound Type: Pressure Injury Suggestions for Active Care Change Position every (hours): 2 Hours to sit in a chair: 2 Times a day to sit in chair: 2 Therapies Physical Therapy: Eval and Treat Occupational Therapy: Eval and Treat Problem/Diagnosis (1) Chronic respiratory failure: Status: Chronic Code(s): J96.10 - Chronic respiratory failure, unspecified whether with hypoxia or hypercapnia Allergies/Procedures Done in Hospital Allergies doxycycline Allergy (Verified 05/06/22 11:45) NEEDS FOLLOW-UP latex Allergy (Verified 05/06/22 11:45) NEEDS FOLLOW-UP Sulfa (Sulfonamide Antibiotics) Allergy (Verified 05/06/22 11:45) Anaphylaxis sulfur dioxide Allergy (Verified 05/06/22 11:45) Anaphylaxis oxycodone Adverse Reaction (Verified 05/06/22 11:45) Other makes me crazy Procedures: 2-D Echocardiogram and EKG Type of Care/Length of Stay Estimated LOS: More Than 30 Days Type of Care Needed: Intermediate Rehab Potential: Fair Prognosis: Fair Additional Orders/Day of Discharge Day of Discharge: 05/10/22 Dietary and Speech Recommendations Dietitian Recommendations/Changes: will continue CHO controlled (no protein/calorie restriction), no added salt diet; will continue Say BID and d/c Glucerna ONS w/ medpass d/t pt refusal. 1750mL fluid restriction per physician. Discharge Plan Admission Admit Date/Time: 05/06/22 16:55 Attending Provider: Haydee Dewitt Primary Care Provider: Geovanna Mott RN NEUROSURGICAL Consulting Providers: Santos Mcwilliams ; Price Brower ; Esdras Esparza ; Nestor Beasley ; Linette Gage NP ; Coco Romero ; Kelechi Rose ; Quynh Aldrich Discharge Orders/Prescriptions Prescriptions: No Action aspirin [Adult Aspirin Regimen] 81 mg tablet,delayed release (DR/EC) 81 mg PO DAILY sennosides-docusate sodium [Senna-S] 8.6-50 mg Tablet 1 tab PO BID levothyroxine [Synthroid] 100 mcg tablet 125 mcg PO DAILY trazodone 100 mg tablet 150 mg PO QHS montelukast 10 mg tablet 10 mg PO QHS albuterol sulfate 90 mcg/actuation HFA aerosol inhaler 2 puff INHALATION Q6H PRN (Reason: Shortness Of Breath) omeprazole 40 mg Capsule,Delayed Release(Dr/Ec) 40 mg PO BID polyethylene glycol 3350 17 gram powder in packet 17 g PO DAILY ferrous sulfate [FeroSul] 325 mg (65 mg iron) tablet 325 mg PO DAILY nystatin [Nyamyc] 100,000 unit/gram powder 1 applic topical TID Protocol: *Topical Application Instructions APPLICATION INSTRUCTIONS: apply to groin tid for redness insulin lispro [Humalog KwikPen Insulin] 100 unit/mL insulin pen 10 unit subcut TIDAC paroxetine HCl [Paxil] 20 mg Tablet 20 mg PO DAILY Levemir FlexTouch U-100 Insuln 100 unit/mL (3 mL) insulin pen 25 unit SUBCUT QHS Qty: 15 0RF meloxicam 7.5 mg tablet 7.5 mg PO DAILY gabapentin 300 mg capsule 300 mg PO TID mirtazapine 15 mg tablet 15 mg PO QHS acetaminophen [Tylenol] 325 mg tablet 650 mg PO Q6H PRN (Reason: PAIN/FEVER) bumetanide 2 mg tablet 2 mg PO TID potassium chloride [Klor-Con M20] 20 mEq tablet,ER particles/crystals 20 meq PO TID Eliquis 5 mg tablet 5 mg PO BID Say (with collagen) 7-7-1.5 gram powder in packet 1 packet PO BID metoprolol tartrate 50 mg Tablet 50 mg PO BID Referrals / Follow Up: Geovanna Mott RN NEUROSURGICAL, RN NEUROSURGICAL-C [Primary Care Provider] -
--- NOTE | 2022-05-10 13:30 | PCM.DC.SUM ---
Providers Date of Admission: 05/06/22 Date of Discharge: 05/10/22 Primary Care Physician: Geovanna Mott, NARCOTICS AND VICE DETECTIVE-C Consultations 05/07/22 05:55 Consult: Medical Reviewer / Pulmonary Medicine AM (NON MEDS) Consulting Provider: Pulmonary Medicine gilmar Flaherty Reason for Consult: Acute on chronic resp failure, bilat pleural effusions +PNA EMERGENT Consult: No MD Notified: Yes Date Notified: 05/06/22 Time Notified: 21:03 Method of Notification: Text 05/07/22 07:27 Consult: Onc/Wound/equities trader Routine Comment: 05/07/22 13:28 Consult: Cardiology Routine Consulting Provider: Kelechi Rose Reason for Consult: nonstemi EMERGENT Consult: No MD Notified: Yes Date Notified: 05/07/22 Time Notified: 13:29 Method of Notification: Text Reason For Visit: HAP Diagnosis Discharge Diagnosis (1) Chronic respiratory failure: Status: Chronic Code(s): J96.10 - Chronic respiratory failure, unspecified whether with hypoxia or hypercapnia Plan Acute on chronic hypoxic and hypercapnic respiratory failure possible healthcare associated pneumonia/severe pulmonary artery hypertension -Currently on 2 L nasal cannula and had reported hypoxia on presentation on room air however she is supposed to be on 3 to 4 L of oxygen at baseline -Use AVAPS as needed -Patient did respond to diuretic therapy -Continue Bumex 1 mg p.o. twice daily and will give an extra dose of IV 1 mg x 1 dose -Strict I's and O's -Respiratory viral panel and COVID and flu are negative -Continue Zosyn -Sodium restricted diet -Daily weights -Continue fluid restriction of 1750 cc--> patient indicates her fluid intake at the nursing facility has been very liberal Gram-negative bacteremia -Blood culture showed gram-negative bacteremia with identifications and sensitivities are pending -1 of 2 cultures were positive for gram-negative marita second blood culture was obtained after antibiotics were given -Continue Zosyn and narrow antibiotics once finalized sensitivities are obtained NSTEMI type II -Likely related to A-fib with RVR and acute infection -Echocardiogram shows an EF of 55% with a small pericardial effusion and a pulmonary artery systolic pressure of 50 mmHg -Cardiology was consulted by previous service and consult is pending -Continue aspirin and statin -Continue moderate dose statin Toxic/metabolic encephalopathy -Mental status appears to be improving -Suspect related to acute underlying infection -Continue to monitor Pericardial effusion -Noted on CT 05/06/2022 -Echocardiogram shows an EF of 55% with a small pericardial effusion and a pulmonary artery systolic pressure of 50 mmHg -Diuresis as noted above Dry gangrene left lower extremity -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 twice daily -Continue Cardizem 60 mg every 6 -Continue Mobic metoprolol 12.5 mg p.o. twice daily -Cardiology following DM-2 -Continue long-acting insulin, but increase from 20 units nightly to 28 units at at bedtime -Continue Accu-Cheks as ordered -Blood sugars are overall well controlled with fasting this morning 181 -Continue sliding scale -Most recent hemoglobin A1c was 7.5 from 12/16/2021 and appears to be consistently stable Chronic macrocytic anemia -Serum creatinine appears to be stable -No signs of acute blood loss -Continue to monitor -Continue iron supplementation CKD stage 3B -Baseline serum creatinine appears to run between 1.3 and 1.6 -Current serum creatinine is 1.23 and actually improved some with diuresis -Suspect patient likely has diabetic nephropathy at baseline Chronic thrombocytopenia -Counts are stable--> 132,000 today -Continue to monitor Diabetic neuropathy -Continue home gabapentin -As needed Tylenol Hypertension/hyperlipidemia/CAD status post stents -Patient was statin allergy -Continue home aspirin -Continue metoprolol 12.5 mg p.o. twice daily -Continue Cardizem 60 every 6 Hypothyroidism -Continue home Synthroid 125 mg -TSH on 05/07/2022 was 11.9 and free T4 was 2.07 -Suspect medication noncompliance -Continue Synthroid as noted above and recheck TSH in 6 weeks Morbid obesity -BMI 33 but patient has a left AKA -Recommend weight loss -Complicates treatment, prognosis, outcomes Insomnia -Continue home as needed melatonin Debility -PT/OT following Depression -Continue Paxil DVT prophylaxis -Continue Eliquis CODE STATUS -Full code Medications at Discharge Home Medications aspirin 81 mg tablet,delayed release (Adult Aspirin Regimen) 81 mg PO DAILY HEART HEALTH 05/17/21 levothyroxine 100 mcg tablet (Synthroid) 125 mcg PO DAILY THYROID 12/13/21 montelukast 10 mg tablet 10 mg PO QHS ALLERGIES 12/13/21 sennosides 8.6 mg-docusate sodium 50 mg tablet (Senna-S) 1 tab PO BID STOOL SOFTNER 12/13/21 trazodone 100 mg tablet 150 mg PO QHS SLEEP 12/13/21 albuterol sulfate 90 mcg/actuation aerosol inhaler 2 puff inhalation Q6H PRN Shortness Of Breath 12/19/21 ferrous sulfate 325 mg (65 mg iron) tablet (FeroSul) 325 mg PO DAILY ANEMIA 12/28/21 insulin lispro 100 unit/mL subcutaneous pen (Humalog KwikPen (U-100) Insulin) 10 unit subcut TIDAC DIABETES 12/28/21 nystatin 100,000 unit/gram topical powder (Nyamyc) 1 applic topical TID IRRITATION 12/28/21 omeprazole 40 mg capsule,delayed release 40 mg PO BID GERD 12/28/21 polyethylene glycol 3350 17 gram oral powder packet 17 g PO DAILY CONSTIPATION 12/28/21 paroxetine HCl 20 mg tablet (Paxil) 20 mg PO DAILY MOOD 01/12/22 insulin detemir U-100 100 unit/mL (3 mL) subcutaneous pen (Levemir FlexTouch U-100 Insulin) 25 unit (0.25 mL) subcut QHS blood sugar #15 mL 02/24/22 acetaminophen 325 mg tablet (Tylenol) 650 mg PO Q6H PRN PAIN/FEVER 04/26/22 apixaban 5 mg tablet (Eliquis) 5 mg PO BID BLOOD THINNER 04/26/22 arginine 7 gram-glutam 7 gram-CaHMB 1.5 [id number] oral pwd pkt (Say (with collagen)) 1 packet PO BID WOUND HEALING 04/26/22 gabapentin 300 mg capsule 300 mg PO TID NERVE PAIN 04/26/22 mirtazapine 15 mg tablet 15 mg PO QHS MOOD 04/26/22 potassium chloride 20 mEq tablet,extended release(part/cryst) (Klor-Con M) 20 meq PO TID SUPPLEMENT 04/26/22 amoxicillin 875 mg-potassium clavulanate 125 mg tablet 1 tab PO BID #7 tabs 05/10/22 bumetanide 0.5 mg tablet 1 mg PO TID #0 tabs 05/10/22 diltiazem HCl 60 mg tablet 60 mg PO Q6 #0 tabs 05/10/22 metoprolol tartrate 25 mg tablet 12.5 mg PO BID #0 tabs 05/10/22 Hospital Course Operations None Procedures 2-D Echocardiogram, EKG and - (CT chest/chest x-ray/CT brain) Summary of Care Provided Minutes Spent on Discharge: 39 Hospital Course: Ms. Lincoln is a 67-year-old white female who presented to the emergency department on 05/06/2022 with shortness of breath.? Patient is very complex medically. She has multiple admissions to the hospital and is at high risk for readmission. She currently has been residing at a nursing facility.? She was recently discharged from the hospital on 05/05/2022 after being admitted with atrial fibrillation, hyperkalemia, encephalopathy and dry gangrene of the left foot.? She underwent amputation of her left lower extremity on 05/02/2022.? She wears 3 L of oxygen at rest and 4 L with exertion.? Upon presentation, she was noted to be hypotensive but afebrile.? She had a mildly elevated white count 11,000 and her ABG on 2 L supplemental oxygen was unremarkable.? Noncontrasted CT of her chest was obtained and found to show bilateral pleural effusions with lower lobe consolidation/atelectasis and a pericardial effusion.? He was placed on broad-spectrum antibiotics and admitted to the medical floor.? She has done well from a respiratory standpoint.? Echocardiogram was performed on 05/08/2022 and showed an EF of 55% with moderate eccentric tricuspid valve insufficiency, small pericardial effusion and a right ventricular systolic pressure of 50 mmHg. She developed atrial fibrillation with RVR during her hospital course and cardiology was consulted. An amiodarone drip was started and overnight initially. Cardiology evaluated the patient on 05/08/2022 at which time they desired to manage her heart rates with the addition of Cardizem and discontinue the amiodarone. She was maintained on oral anticoagulation as she does have a history of paroxysmal atrial fibrillation and baseline. She is some mild troponin elevation for which cardiology felt that this was related to her A-fib with RVR and recommended no further work-up for ischemic heart disease that she had no wall motion abnormality on her echocardiogram. Her blood cultures from admission demonstrated gram-negative rods which ended up being Proteus. I suspect this is related to UTI however no urine culture was obtained on admission. She was maintained on broad-spectrum antibiotics throughout her hospitalization. Initially with vancomycin and Zosyn. Vancomycin was discontinued once gram-negative was identified and she was maintained on Zosyn until the day of discharge. Given that is gram-negative bacteremia we will be able to treat her with oral Augmentin based on sensitivities for another 3-1/2 days to complete a total course of 7 days. She was able to maintain on her baseline oxygen throughout her entire hospital course. Once her blood pressure issues resolved we restarted her diuresis to which she responded well. She is intermittently confused at baseline and had resolved to her baseline mental status prior to discharge. Wound care evaluated her during her hospital course and the wound seems to be healing well. She is to keep her appointment to follow-up with vascular surgery as already previously scheduled. At the time of discharge she remained in atrial fibrillation however her rates were well controlled. In the 24 hours prior to discharge her heart rate fluctuated anywhere from 86-105. New medications at discharge included Cardizem and antibiotics to complete treatment for her bacteremia. She was able to be discharged in stable condition to the [facility] on 05/10/2022 for ongoing medical care. She will need a follow-up BMP and CBC in 5 to 7 days. If she shows any worsening shortness of breath I would recommend possibly uptitrating her diuretics and obtaining a BNP. 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 A-fib with RVR with history of PAF DM-2 Chronic macrocytic anemia CKD stage IIIb Chronic thrombocytopenia Diabetic neuropathy Hypertension Hyperlipidemia CAD Hypothyroidism Morbid obesity Insomnia Debility Depression Physical Exam Const alert, oriented x3 and no apparent distress Constitutional Narrative: Sleepy, morbidly obese, white female, sitting up napping but awakens easily, oriented to self and president of [place] and year but not place or month, appears much older than stated age and appears chronically ill General Appearance: cooperative, comfortable, well kempt and well developed HEENT normocephalic, head/scalp atraumatic, hearing grossly normal bilaterally and moist oral mucous membranes HEENT Narrative: Mallampati 3, patient is edentulous, no thrush Eyes PERRL and EOMs intact bilaterally Eyes Narrative: Conjunctiva are pale bilaterally, no scleral icterus Neck no lymphadenopathy and supple Neck Narrative: Trachea midline, no thyroid enlargement Resp normal respiratory effort, no retractions, no use of accessory muscles and clear to auscultation bilaterally Resp Narrative: Diminished at the bases bilaterally Auscultation: Negative for rales, rhonchi or wheezes Cardio regular rate, S1 normal heart sound, S2 normal heart sound, no murmurs, no rub, no gallops and no clicks; Negative for regular rhythm Cardio Narrative: irregularly irregular rhythm GI normal to inspection, nondistended, normoactive bowel sounds, soft to palpation and non-tender GI Narrative: obese abdomen Extremity normal capillary refill Extremity Narrative: Left lower extremity AKA, dressing in place clean dry and intact, no upper or lower extremity cyanosis clubbing or edema Skin no wounds, skin turgor normal and no jaundice Skin Narrative: AKA on left as noted above, right lower extremity dressing in place, cap refill is 2+, skin is pale Neuro CN's II-XII intact bilaterally, moves all extremities, no focal motor deficits and no sensory deficits noted Neuro Narrative: Decreased right lower extremity sensation, oriented to self and president, year but not place or month, generalized weakness proximal greater than distal Speech: speech normal Psych affect normal Psych Narrative: Very pleasant, mildly confused but mental status is improving Weight / BMI Weight Weight: 90.6 kg Body Mass Index (BMI) 33.2 ABG / Lab / Microbiology Data Result Diagrams: 05/10/22 04:48 05/10/22 04:48 Laboratory: Laboratory Results - last 24 hr 05/09/22 17:14: POC Glucose 240 H 05/09/22 22:03: POC Glucose 226 H 05/10/22 04:48: WBC 8.7, RBC 2.62 L, Hgb 7.9 L, Hct 26.7 L, MCV 101.9 H, MCH 30.2, MCHC 29.6 L, RDW Std Deviation 71.4 H, RDW Coeff of Magen 19.1 H, Plt Count 136 L, MPV 10.9, Immature Gran % (Auto) 0.600, Neut % (Auto) 76.3 H, Lymph % (Auto) 13.1 L, [place] % (Auto) 6.3, Eos % (Auto) 3.2, Baso % (Auto) 0.5, Absolute Neuts (auto) 6.6, Absolute Lymphs (auto) 1.14, Nucleated RBC % 0, Differential Comment SCANNED, Hypochromasia 1+, Anisocytosis 1+, Macrocytosis 1+ 05/10/22 04:48: Sodium 141, Potassium 3.7, Chloride 110 H, Carbon Dioxide 27.0, Anion Gap 4 L, BUN 58 H, Creatinine 1.22 H, Estim Creat Clear Calc 40.82, Est GFR (MDRD) Af Amer 57 L, Est GFR (MDRD) Non-Af 47 L, BUN/Creatinine Ratio 47.5 H, Glucose 200 H, Calcium 8.6 05/10/22 06:23: POC Glucose 176 H 05/10/22 11:59: POC Glucose 209 H Microbiology: Microbiology 05/06/22 17:44 Blood Culture (Wb) - Right Forearm Blood Culture - Final Proteus mirabilis 05/07/22 00:12 Blood Culture (Wb) - Left Hand Blood Culture - Preliminary No growth in 48 hours. 05/06/22 20:00 Mucosa - Nasopharyngeal Respiratory Panel (PCR) - Final D/C Instructions Discharge Diet: Low fat / Low cholesterol, 1800 Calorie Control Diet, 8 Cup Fluid Restriction and 2000 mg Sodium Diet Meaningful Use Info Meaningful Use Diagnoses (Choose all that apply): None applicable Discharge Plan Admission Admit Date/Time: 05/06/22 16:55 Primary Reason for Your Visit: Shortness of breath Attending Provider: Haydee Dewitt Primary Care Provider: Geovanna Mott NARCOTICS AND VICE DETECTIVE Consulting Providers: Santos Mcwilliams ; Price Brower ; Esdras Esparza ; Nestor Beasley ; Linette Gage NARCOTICS AND VICE DETECTIVE ; Coco Romero ; Kelechi Rose ; Quynh Aldrich Instructions Additional Instructions / Restrictions: 1. Follow-up with Dr. Govea from vascular surgery as previously directed Discharge Orders/Prescriptions Prescriptions: New bumetanide 0.5 mg Tablet 1 mg PO TID Qty: 0 0RF diltiazem HCl 60 mg Tablet 60 mg PO Q6 Qty: 0 0RF metoprolol tartrate 25 mg Tablet 12.5 mg PO BID Qty: 0 0RF amoxicillin-pot clavulanate 875-125 mg tablet 1 tab PO BID Qty: 7 0RF Continued aspirin [Adult Aspirin Regimen] 81 mg tablet,delayed release (DR/EC) 81 mg PO DAILY sennosides-docusate sodium [Senna-S] 8.6-50 mg Tablet 1 tab PO BID levothyroxine [Synthroid] 100 mcg tablet 125 mcg PO DAILY trazodone 100 mg tablet 150 mg PO QHS montelukast 10 mg tablet 10 mg PO QHS albuterol sulfate 90 mcg/actuation HFA aerosol inhaler 2 puff INHALATION Q6H PRN (Reason: Shortness Of Breath) omeprazole 40 mg Capsule,Delayed Release(Dr/Ec) 40 mg PO BID polyethylene glycol 3350 17 gram powder in packet 17 g PO DAILY ferrous sulfate [FeroSul] 325 mg (65 mg iron) tablet 325 mg PO DAILY nystatin [Nyamyc] 100,000 unit/gram powder 1 applic topical TID Protocol: *Topical Application Instructions APPLICATION INSTRUCTIONS: apply to groin tid for redness insulin lispro [Humalog KwikPen Insulin] 100 unit/mL insulin pen 10 unit subcut TIDAC paroxetine HCl [Paxil] 20 mg Tablet 20 mg PO DAILY Levemir FlexTouch U-100 Insuln 100 unit/mL (3 mL) insulin pen 25 unit SUBCUT QHS Qty: 15 0RF gabapentin 300 mg capsule 300 mg PO TID mirtazapine 15 mg tablet 15 mg PO QHS acetaminophen [Tylenol] 325 mg tablet 650 mg PO Q6H PRN (Reason: PAIN/FEVER) potassium chloride [Klor-Con M20] 20 mEq tablet,ER particles/crystals 20 meq PO TID Eliquis 5 mg tablet 5 mg PO BID Say (with collagen) 7-7-1.5 gram powder in packet 1 packet PO BID Discontinued meloxicam 7.5 mg tablet 7.5 mg PO DAILY bumetanide 2 mg tablet 2 mg PO TID metoprolol tartrate 50 mg Tablet 50 mg PO BID Referrals / Follow Up: Kelechi Rose MD [Med Staff - Active Staff] - Within 1 Month Geovanna Mott NARCOTICS AND VICE DETECTIVE, NARCOTICS AND VICE DETECTIVE-C [Primary Care Provider] - Within 2 Weeks Disposition Disposition (needs filled in before D/C Order can be placed): Assisted Facility Charges/Coding Visit Charges Inpatient E&M: 29321 SNF Disch >30 Min
--- NOTE | 2022-05-10 13:52 | PHA.DC.MR ---
Pharmacy Service has performed discharge medication reconciliation for this patient. The patient's discharge medication list was reviewed for discrepancies and discrepancies were resolved. Home Medications aspirin 81 mg tablet,delayed release (Adult Aspirin Regimen) 81 mg PO DAILY HEART HEALTH 05/17/21 levothyroxine 100 mcg tablet (Synthroid) 125 mcg PO DAILY THYROID 12/13/21 montelukast 10 mg tablet 10 mg PO QHS ALLERGIES 12/13/21 sennosides 8.6 mg-docusate sodium 50 mg tablet (Senna-S) 1 tab PO BID STOOL SOFTNER 12/13/21 trazodone 100 mg tablet 150 mg PO QHS SLEEP 12/13/21 albuterol sulfate 90 mcg/actuation aerosol inhaler 2 puff inhalation Q6H PRN Shortness Of Breath 12/19/21 ferrous sulfate 325 mg (65 mg iron) tablet (FeroSul) 325 mg PO DAILY ANEMIA 12/28/21 insulin lispro 100 unit/mL subcutaneous pen (Humalog KwikPen (U-100) Insulin) 10 unit subcut TIDAC DIABETES 12/28/21 nystatin 100,000 unit/gram topical powder (Nyamyc) 1 applic topical TID IRRITATION 12/28/21 omeprazole 40 mg capsule,delayed release 40 mg PO BID GERD 12/28/21 polyethylene glycol 3350 17 gram oral powder packet 17 g PO DAILY CONSTIPATION 12/28/21 paroxetine HCl 20 mg tablet (Paxil) 20 mg PO DAILY MOOD 01/12/22 insulin detemir U-100 100 unit/mL (3 mL) subcutaneous pen (Levemir FlexTouch U-100 Insulin) 25 unit (0.25 mL) subcut QHS blood sugar #15 mL 02/24/22 acetaminophen 325 mg tablet (Tylenol) 650 mg PO Q6H PRN PAIN/FEVER 04/26/22 apixaban 5 mg tablet (Eliquis) 5 mg PO BID BLOOD THINNER 04/26/22 arginine 7 gram-glutam 7 gram-CaHMB 1.5 [id number]-[id number]-min oral pwd pkt (Say (with collagen)) 1 packet PO BID WOUND HEALING 04/26/22 gabapentin 300 mg capsule 300 mg PO TID NERVE PAIN 04/26/22 mirtazapine 15 mg tablet 15 mg PO QHS MOOD 04/26/22 potassium chloride 20 mEq tablet,extended release(part/cryst) (Klor-Minor M) 20 meq PO TID SUPPLEMENT 04/26/22 amoxicillin 875 mg-potassium clavulanate 125 mg tablet 1 tab PO BID #7 tabs 05/10/22 bumetanide 0.5 mg tablet 1 mg PO TID #0 tabs 05/10/22 diltiazem HCl 60 mg tablet 60 mg PO Q6 #0 tabs 05/10/22 metoprolol tartrate 25 mg tablet 12.5 mg PO BID #0 tabs 05/10/22
--- NOTE | 2022-05-10 14:29 | CASEMGMT ---
Addendum entered by Clare Kaufman 05/10/22 15:03: SW notified patient that she will be going to [facility] [place] today. Patient was excited and thanked SW. Clare DASILVA Original Note: GREG called Physicians and arranged for patient to get picked up at 6p via cot. GREG sent orders, med list, and worm picker time to [facility] via [facility]. GREG notified RN, medical secretary, and hot metal charger of worm picker time. Plan: d/c to [facility] under intermediate level of care. Physicians transported via cot. Clare DASILVA
--- NOTE | 2022-05-10 15:41 | NURSING ---
Called report to Sugey B[facility]GEO[facility]
--- NOTE | 2022-05-10 15:42 | CASEMGMT ---
GREG sent COVID test to [facility]. Clare Kaufman SUIT MAKER PRESCRIPTION BENEFIT SPECIALIST
[2022-05-10 17:40] LABS: Bedside Glucose 182 mg/dL (74-106)
== END 2022-05-10 20:18 | disposition skilled nursing facility (03) | DRG 193 ==
LOC: ED 17:15 → PCU 17:23
PROVIDERS: Internal Medicine Critical Care Medicine; Student in an Organized Health Care Education/Training Program; Admitting Provider Internal Medicine; Emergency Provider Emergency Medicine; PCP Nurse Practitioner Adult Health; Visit Provider Internal Medicine
DX: J18.9 Pneumonia, unspecified organism (principal); J96.21 Acute and chronic respiratory failure with hypoxia; A41.59 Other Gram-negative sepsis; G93.41 Metabolic encephalopathy; G92.8 Other toxic encephalopathy; J96.22 Acute and chronic respiratory failure with hypercapnia; I21.A1 Myocardial infarction type 2; I50.33 Acute on chronic diastolic (congestive) heart failure; I13.0 Hypertensive heart and chronic kidney disease with heart failure and stage 1 through stage 4 chronic kidney disease, or unspecified chronic kidney disease; J44.0 Chronic obstructive pulmonary disease with (acute) lower respiratory infection; J44.1 Chronic obstructive pulmonary disease with (acute) exacerbation; I31.39 Other pericardial effusion (noninflammatory); E11.22 Type 2 diabetes mellitus with diabetic chronic kidney disease; D50.9 Iron deficiency anemia, unspecified; E11.42 Type 2 diabetes mellitus with diabetic polyneuropathy; E11.649 Type 2 diabetes mellitus with hypoglycemia without coma; N18.32 Chronic kidney disease, stage 3b; Z79.4 Long term (current) use of insulin; E11.51 Type 2 diabetes mellitus with diabetic peripheral angiopathy without gangrene; I48.0 Paroxysmal atrial fibrillation; E66.01 Morbid (severe) obesity due to excess calories; I27.20 Pulmonary hypertension, unspecified; Z89.612 Acquired absence of left leg above knee; E03.9 Hypothyroidism, unspecified; E78.5 Hyperlipidemia, unspecified; D69.59 Other secondary thrombocytopenia; I25.10 Atherosclerotic heart disease of native coronary artery without angina pectoris; G47.00 Insomnia, unspecified; Z20.822 Contact with and (suspected) exposure to COVID-19; Z68.33 Body mass index [BMI] 33.0-33.9, adult; Z99.81 Dependence on supplemental oxygen; Z79.01 Long term (current) use of anticoagulants; Z79.82 Long term (current) use of aspirin; Z87.891 Personal history of nicotine dependence; Z95.5 Presence of coronary angioplasty implant and graft
CPT/HCPCS: 36415; 36600; 70450; 71045; 71250; 80048; 80053; 81001; 82140; 82803; 82962; 83605; 83735; 83880; 84100; 84439; 84443; 84484; 85025; 85610; 85730; 87040; 87077; 87186; 87426; 87633; 87641; 93005; 93308; 94002; 94003; 94640; 94668; 94762; 97162; 97166; 97802; 97803; 99252; 99284; J7030; J7040; Q9957; A4216; G0463; J0295

== ENCOUNTER 2022-05-12 05:05 | Emergency (ER) | payer MEDICARE, MEDICAID, SELFPAY ==
[2022-05-12] VITALS (7 sets, daily range): BP systolic 94–118; BP diastolic 56–79; PULSE 71–94; RESP 17–31; TEMP 36.1–36.6; O2SAT 82–100; BMI 33.3
--- NOTE | 2022-05-12 05:10 | RAD_ITS ---
INDICATION: Neuro deficit, acute, stroke suspected EXAMINATION/TECHNIQUE: X-RAY - XR Chest 1 View COMPARISON: None. FINDINGS: LINES/DEVICES: None. LUNGS: Small bilateral pleural effusions more prominent on the right. There is pulmonary vascular congestion. Increased interstitial markings are noted bilaterally suggesting pulmonary edema. There is compressive atelectasis in the lung bases. MEDIASTINUM AND CARDIOVASCULAR STRUCTURES: Cardiac silhouette is moderately enlarged. Central airways and mediastinal contour are unremarkable. BONES AND SOFT TISSUES: Unremarkable. RAD/Chest 1 View IMPRESSION: CHF Electronically Signed: Ayo Hancock MD at 6:56 EDT ,
--- NOTE | 2022-05-12 05:10 | CT_ITS ---
We are attempting to reach an attending provider to discuss findings. An addendum with communication details will be sent when the communication is complete. INDICATION: Neuro deficit, acute, stroke suspected EXAMINATION: CT BRAIN - CT Head Stroke Protocol W/O Contrast Injection TECHNIQUE: Multiple axial images were obtained of the head without intravenous contrast. A radiation dose optimization technique was used for this scan. IV Contrast dosage and agent: None. COMPARISON: FINDINGS: BRAIN PARENCHYMA: No intra- or extra-axial hemorrhage. No evidence of acute infarct. No intracranial mass or mass effect. There is preservation of the cartwright/white matter interface. Posterior fossa structures are unremarkable. CSF SPACES: Appropriate for age. No hydrocephalus. Basal cisterns are patent. CALVARIUM, SKULL BASE, PARANASAL SINUSES AND MASTOID AIR CELLS: Clear. No discrete lytic or blastic abnormalities. ORBITS: Both globes, extraocular muscles, optic nerves and retrobulbar fat appear unremarkable. ASPECTS Score for Acute Strokes: 10 CT/STROKE Brain/Head without Cont IMPRESSION: Negative Brain CT without contrast. Electronically Signed: Ayo Hancock MD at 5:36 EDT ,
--- NOTE | 2022-05-12 05:10 | EKG12_ITS ---
Test Reason : STROKE Blood Pressure : / mmHG Vent. Rate : 085 BPM Atrial Rate : 326 BPM P-R Int : 000 ms QRS Dur : 086 ms QT Int : 368 ms P-R-T Axes : 095 082 207 degrees QTc Int : 437 ms Atrial flutter with variable A-V block Low voltage QRS Septal infarct , age undetermined Abnormal ECG Confirmed by AUGUSTO ROSS, MAEGAN ([id number]), editorial assistant JASON PEREIRA ([id number]) on 05/15/2022 12:19:55 P M Referred By: Confirmed By:APRIL CSAAS MD
--- NOTE | 2022-05-12 05:11 | EDS_ITS ---
HPI History of Present Illness Chief Complaint: Stroke Alert Detail of Chief Complaint: Slurred speech and facial droop with concern for stroke Informant: patient, EMS and SNF Narrative Narrative: Patient presents via EMS from extended care facility for concern for possible stroke. Nursing staff attempted to wake patient up this morning and they had a hard time arousing her. Patient was noted to have right-sided facial droop and slurred speech. On arrival to the emergency department she is awake and alert and answering questions. She does feel like her speech feels different than normal. She does tell me that she is on Eliquis for history of A-fib. Patient has had a left below the knee amputation. Patient denies headache. She denies chest pain. She denies shortness of breath. [facility] Medical History (Updated 05/12/22 @ 07:[address] John Fernandez, ) Acute cervical myofascial strain Acute on chronic respiratory failure with hypoxemia Acute respiratory failure with hypoxia Amputated toe of left foot Anemia Asthma Atherosclerotic heart disease of [place] coronary artery without angina pectoris Atrial fibrillation Atrial fibrillation with rapid ventricular response CAD (coronary artery disease) CHF (congestive heart failure) Chronic congestive heart failure Chronic heart failure with preserved ejection fraction (HFpEF) Chronic heel ulcer Chronic respiratory failure with hypoxia, on home oxygen therapy Chronic ulcer of great toe of left foot Closed head injury Congestive heart failure (CHF) COPD (chronic obstructive pulmonary disease) Current use of insulin Decubitus ulcer of dorsum of foot, stage 2 Decubitus ulcer of left heel, stage 2 Decubitus ulcer of left heel, stage 3 Decubitus ulcer, heel, left, unstageable Depression Diabetes mellitus with diabetic polyneuropathy Diabetes type 2, controlled Diabetic foot ulcers Diverticulitis Dry gangrene Essential hypertension Former smoker History of amputation of left great toe History of non-ST elevation myocardial infarction (NSTEMI) (02/24/17) Hyperlipidemia Hypoglycemia due to type 1 diabetes mellitus Hypothyroid Morbid obesity Multiple wounds Myocardial infarct Non-rheumatic tricuspid valve insufficiency Nondisplaced fracture of distal phalanx of right great toe, initial encounter for closed fracture Nonrheumatic mitral (valve) insufficiency Obesity Obstructive sleep apnea On home O2 Renal insufficiency Secondary pulmonary arterial hypertension Thrombocytopenia Type 2 diabetes mellitus Vitamin D deficiency Home Medications aspirin 81 mg tablet,delayed release (Adult Aspirin Regimen) 81 mg PO DAILY HEART [facility] 05/17/21 [History Last Taken 04/25/22 08:30] levothyroxine 100 mcg tablet (Synthroid) 125 mcg PO DAILY THYROID 12/13/21 [History Last Taken 04/26/22 06:00] montelukast 10 mg tablet 10 mg PO QHS ALLERGIES 12/13/21 [History Last Taken 04/25/22 20:58] sennosides 8.6 mg-docusate sodium 50 mg tablet (Senna-S) 1 tab PO BID STOOL SOFTNER 12/13/21 [History Last Taken 04/25/22 20:58] trazodone 100 mg tablet 150 mg PO QHS SLEEP 12/13/21 [History Last Taken 04/25/22 20:58] albuterol sulfate 90 mcg/actuation aerosol inhaler 2 puff inhalation Q6H PRN Shortness Of Breath 12/19/21 [History Last Taken Unknown] ferrous sulfate 325 mg (65 mg iron) tablet (FeroSul) 325 mg PO DAILY ANEMIA 12/28/21 [History Last Taken 04/25/22 11:00] insulin lispro 100 unit/mL subcutaneous pen (Humalog KwikPen (U-100) Insulin) 10 unit subcut TIDAC DIABETES 12/28/21 [History Last Taken 04/25/22 20:40] nystatin 100,000 unit/gram topical powder (Nyamyc) 1 applic topical TID IRRITATION 12/28/21 [History Last Taken 04/25/22 20:58] omeprazole 40 mg capsule,delayed release 40 mg PO BID GERD 12/28/21 [History Last Taken 04/25/22 20:58] polyethylene glycol 3350 17 gram oral powder packet 17 g PO DAILY CONSTIPATION 12/28/21 [History Last Taken 04/25/22 08:30] paroxetine HCl 20 mg tablet (Paxil) 20 mg PO DAILY MOOD 01/12/22 [History Last Taken 04/26/22 08:30] insulin detemir U-100 100 unit/mL (3 mL) subcutaneous pen (Levemir FlexTouch U- 100 Insulin) 25 unit (0.25 mL) subcut QHS blood sugar #15 mL 02/24/22 [Rx Last Taken 04/24/22 19:30] acetaminophen 325 mg tablet (Tylenol) 650 mg PO Q6H PRN PAIN/FEVER 04/26/22 [History Last Taken 04/26/22 06:00] apixaban 5 mg tablet (Eliquis) 5 mg PO BID BLOOD THINNER 04/26/22 [History Last Taken 04/26/22 08:30] arginine 7 gram-glutam 7 gram-CaHMB 1.5 [id number] oral pwd pkt (Say (with collagen)) 1 packet PO BID WOUND HEALING 04/26/22 [History Last Taken 04/25/22 11:00] gabapentin 300 mg capsule 300 mg PO TID NERVE PAIN 04/26/22 [History Last Taken 04/25/22 13:30] mirtazapine 15 mg tablet 15 mg PO QHS MOOD 04/26/22 [History Last Taken 04/25/22 20:58] potassium chloride 20 mEq tablet,extended release(part/cryst) (Klor-Con M) 20 meq PO TID SUPPLEMENT 04/26/22 [History Last Taken 04/26/22 06:00] amoxicillin 875 mg-potassium clavulanate 125 mg tablet 1 tab PO BID #7 tabs 05/10/22 [Rx Last Taken Unknown] bumetanide 0.5 mg tablet 1 mg PO TID #0 tabs 05/10/22 [Rx Last Taken Unknown] diltiazem HCl 60 mg tablet 60 mg PO Q6 #0 tabs 05/10/22 [Rx Last Taken Unknown] metoprolol tartrate 25 mg tablet 12.5 mg PO BID #0 tabs 05/10/22 [Rx Last Taken Unknown] Allergy/AdvReac Type Severity Reaction Status Date / Time doxycycline Allergy NEEDS Verified 05/06/22 11:45 FOLLOW-UP latex Allergy NEEDS Verified 05/06/22 11:45 FOLLOW-UP Sulfa (Sulfonamide Allergy Anaphylaxis Verified 05/06/22 11:45 Antibiotics) sulfur dioxide Allergy Anaphylaxis Verified 05/06/22 11:45 oxycodone AdvReac Other Verified 05/06/22 11:45 Family History Grandmother Diabetes Mother Heart disease Surgical History H/O right heart catheterization History of cataract surgery History of coronary artery stent placement (02/24/17) History of heart artery stent Tubal ligation status Social History household members: none housing: other details: [facility]. Smoking Status: Former smoker how long ago did patient quit smokin alcohol intake: former year quit: 1999 substance use type: does not use caffeine: Yes Type: carbonated beverages and tea ROS ROS ED Review of Systems ROS Unobtainable: other Constitutional Constitutional ED: Reports lethargy; Denies chills, fever(s), sweats or weight loss Eyes Eyes: Denies blurry vision, change in vision or diplopia ENT ENT ED: Denies rhinorrhea or sore throat Cardiovascular Cardiovascular: Denies chest pain, orthopnea or racing heartbeat Respiratory/Chest Respiratory/Chest: Denies cough, dyspnea, dyspnea on exertion, orthopnea or sputum Gastrointestinal Gastrointestinal: Denies abdominal pain, diarrhea, nausea or vomiting Genitourinary Genitourinary ED: Denies dysuria, hematuria or urinary frequency Musculoskeletal Musculoskeletal: Denies arthralgias, back pain, myalgias or neck pain Integumentary Denies abscess, Abrasions or rash Neurologic Neurologic: Reports other Details: Slurred speech and right-sided facial droop ; Denies headache(s) or weakness Psychiatric Psychiatric: Denies anxiety, depression or suicidal thoughts Endocrine Endocrinology: Denies polydipsia, polyphagia or polyuria Hematologic/Lymphatic Hematologic/Lymphatic: Denies easy bleeding, easy bruising or lymphadenopathy Allergic/Immunologic Allergic/Immunologic ED: Denies mouth swelling, tongue swelling or urticaria EXAM Physical Exam Const Vital Signs: 05/12/22 05:07 05/12/22 05:10 05/12/22 05:07 Temperature 97 F L Temperature Source Temporal Pulse Rate 89 79 Respiratory Rate 22 H 22 H Blood Pressure 102/79 102/79 Blood Pressure Mean 86 86 Pulse Ox 82 96 87 Oxygen Delivery Method Nasal Cannula Nasal Cannula Nasal Cannula Oxygen Flow Rate (L/min) 2 6 2 05/12/22 05:10 05/12/22 05:40 05/12/22 06:10 Temperature 97.9 F Temperature Source Temporal Pulse Rate 85 85 81 Respiratory Rate 28 H 30 H 31 H Blood Pressure 102/79 104/79 118/72 Blood Pressure Mean 86 87 87 Pulse Ox 100 100 100 Oxygen Delivery Method Nasal Cannula Nasal Cannula Nasal Cannula Oxygen Flow Rate (L/min) 4 4 4 05/12/22 06:51 Temperature Temperature Source Pulse Rate 89 Respiratory Rate 31 H Blood Pressure 94/70 Blood Pressure Mean 78 Pulse Ox 100 Oxygen Delivery Method Nasal Cannula Oxygen Flow Rate (L/min) 4 Positive well nourished and well developed General Appearance ED: well developed and NAD HEENT Reports TM's clear and moist mucous membranes normocephalic and atraumatic; Negative for trauma or tenderness Tympanic Membrane ED: Yes TM's clear Eyes PERRL and EOMs intact bilaterally General Eye ED: Negative for pale conjunctiva or scleral icterus Neck no lymphadenopathy, supple and no JVD General: Negative for tenderness Chest Wall inspection of chest normal and palpation of chest normal Chest: Negative for tenderness Resp normal respiratory effort and clear to auscultation bilaterally Effort and Inspection: Negative for respiratory distress or pain with movement Auscultation: Negative for rhonchi, wheezes or diminished lung sounds Cardio regular rate, regular rhythm, S1 normal heart sound, S2 normal heart sound and no murmurs Peripheral Pulses: pulses 2+ throughout GI normal to inspection, nondistended, normoactive bowel sounds, soft to palpation, non-tender, non-distended and no masses Back/Spine no CVA tenderness and no thoracic nor lumbar tenderness Extremity Extremity Narrative: Left BKA. General Extremety ED: Negative for edema General Extremity: Negative for edema Neuro oriented x3, CN's II-XII intact bilaterally, no sensory deficits noted and gait normal Neuro Narrative: Right-sided facial droop. Patient does have some dysarthria. NIH stroke scale was a 6. I do not appreciate any focal weakness in the extremities. Sensorium / Orientation: awake, alert, oriented to person, oriented to place and oriented to time Motor Exam: strength 5/5 throughout and strength abnormal Psych mental status grossly normal Skin no rashes or lesions noted and no wounds MDM MDM MDM Narrative Medical decision making narrative: Stroke team was called given squad statements that patient had facial droop and slurred speech. On arrival patient was met in the hallway on [facility] and she was noted to have some slight right-sided facial droop with some slurred speech. No other focal deficits noted. NIH stroke scale was a 6 initially. We did obtain a CT scan of the brain without contrast which was unremarkable. We could not establish an IV in this patient. Patient is not a thrombolytic candidate given she was last known well last evening at 8:30 PM and she is on Eliquis. I did perform a femoral stick to obtain blood work. CBC with differential showed a white count of 9.4 and a hemoglobin of 9 as well as a hematocrit of 32. Platelets were 174. Chemistries unremarkable. Troponin was normal. Patient's facial droop on repeat exam seems to be improving and slurred speech seems improved. We eventually were able to obtain a IV in the right antecubital however when they attempted CTA of the head and neck the IV infiltrated. I discussed with hospitalist who knows patient well and they recommended obtaining a MRI in the ER of the brain as well as MRA of the head and neck and if unremark able was felt patient could be [facility]. Care of patient will be turned over to morning physician awaiting results of MRI and MRA. Lab Data Labs: Laboratory Results - last 24 hr 05/12/22 05/12/22 05/12/22 06:10 06:10 06:10 WBC 9.4 RBC 3.01 L Hgb 9.0 L Hct 31.8 L MCV 105.6 H MCH 29.9 MCHC 28.3 L RDW Std Deviation 77.0 H RDW Coeff of Magen 19.6 H Plt Count 174 MPV 11.1 Immature Gran % (Auto) 0.700 Neut % (Auto) 71.9 H Lymph % (Auto) 16.0 L Mcdonald % (Auto) 6.5 Eos % (Auto) 3.9 Baso % (Auto) 1.0 Absolute Neuts (auto) 6.8 Absolute Lymphs (auto) 1.50 Nucleated RBC % 0 Anisocytosis 3+ PT 22.6 H INR 2.0 APTT 37.8 H Sodium 144 Potassium 4.2 Chloride 113 H Carbon Dioxide 28.0 Anion Gap 3 L BUN 45 H Creatinine 1.08 H Estim Creat Clear Calc 47.97 Est GFR (MDRD) Af Amer 65 Est GFR (MDRD) Non-Af 54 L BUN/Creatinine Ratio 41.7 H Glucose 173 H Calcium 9.2 Troponin I High Sens 40 Urine Color Urine Clarity Urine pH Ur Specific [place] Urine Protein Urine Glucose (UA) Urine Ketones Urine Occult Blood Urine Nitrite Urine Bilirubin Urine Urobilinogen Ur Leukocyte Esterase 05/12/22 06:55 WBC RBC Hgb Hct MCV MCH MCHC RDW Std Deviation RDW Coeff of Magen Plt Count MPV Immature Gran % (Auto) Neut % (Auto) Lymph % (Auto) Mcdonald % (Auto) Eos % (Auto) Baso % (Auto) Absolute Neuts (auto) Absolute Lymphs (auto) Nucleated RBC % Anisocytosis PT INR APTT Sodium Potassium Chloride Carbon Dioxide Anion Gap BUN Creatinine Estim Creat Clear Calc Est GFR (MDRD) Af Amer Est GFR (MDRD) Non-Af BUN/Creatinine Ratio Glucose Calcium Troponin I High Sens Urine Color Yellow Urine Clarity Clear Urine pH 6.0 Ur Specific [place] 1.015 Urine Protein 30 H Urine Glucose (UA) Normal Urine Ketones 5 H Urine Occult Blood Negative Urine Nitrite Negative Urine Bilirubin Negative Urine Urobilinogen Normal Ur Leukocyte Esterase 25 H Radiography Diagnostic Testing: Clinical Impression(s) from Imaging Studies Brain CT 05/12/22 05:10 IMPRESSION: Negative Brain CT without contrast. Electronically Signed: Ayo Hancock MD at 5:36 EDT Reading Location ID and State: [facility] / [place] Tel , Service support , ADDENDUM: 05/12/22 0544 IMPRESSION: Negative Brain CT without contrast. N.B. : The above Results were Read Back by Ayo Hancock MD to John Fernandez MD, and understanding confirmed on 05/12/2022 05:37:29 (ET). Electronically Signed: Ayo Hancock MD at 5:36 EDT , Chest X-Ray 05/12/22 05:10 IMPRESSION: CHF Electronically Signed: Ayo Hancock MD at 6:56 EDT , Discharge Plan Triage Chief Complaint: Stroke Alert ED Provider: John Fernandez Dx/Rx/DC Orders Clinical Impression: Altered mental status, Diabetes, History of atrial fibrillation Prescriptions: No Action aspirin [Adult Aspirin Regimen] 81 mg tablet,delayed release (DR/EC) 81 mg PO DAILY sennosides-docusate sodium [Senna-S] 8.6-50 mg Tablet 1 tab PO BID levothyroxine [Synthroid] 100 mcg tablet 125 mcg PO DAILY trazodone 100 mg tablet 150 mg PO QHS montelukast 10 mg tablet 10 mg PO QHS albuterol sulfate 90 mcg/actuation HFA aerosol inhaler 2 puff INHALATION Q6H PRN (Reason: Shortness Of Breath) omeprazole 40 mg Capsule,Delayed Release(Dr/Ec) 40 mg PO BID polyethylene glycol 3350 17 gram powder in packet 17 g PO DAILY ferrous sulfate [FeroSul] 325 mg (65 mg iron) tablet 325 mg PO DAILY nystatin [Nyamyc] 100,000 unit/gram powder 1 applic topical TID Protocol: *Topical Application Instructions APPLICATION INSTRUCTIONS: apply to groin tid for redness insulin lispro [Humalog KwikPen Insulin] 100 unit/mL insulin pen 10 unit subcut TIDAC paroxetine HCl [Paxil] 20 mg Tablet 20 mg PO DAILY Levemir FlexTouch U-100 Insuln 100 unit/mL (3 mL) insulin pen 25 unit SUBCUT QHS Qty: 15 0RF gabapentin 300 mg capsule 300 mg PO TID mirtazapine 15 mg tablet 15 mg PO QHS acetaminophen [Tylenol] 325 mg tablet 650 mg PO Q6H PRN (Reason: PAIN/FEVER) potassium chloride [Klor-Con M20] 20 mEq tablet,ER particles/crystals 20 meq PO TID Eliquis 5 mg tablet 5 mg PO BID Say (with collagen) 7-7-1.5 gram powder in packet 1 packet PO BID bumetanide 0.5 mg Tablet 1 mg PO TID Qty: 0 0RF diltiazem HCl 60 mg Tablet 60 mg PO Q6 Qty: 0 0RF metoprolol tartrate 25 mg Tablet 12.5 mg PO BID Qty: 0 0RF amoxicillin-pot clavulanate 875-125 mg tablet 1 tab PO BID Qty: 7 0RF Primary Care Provider: Geovanna Mott CUTTING TOOL SHARPENER Referrals: Geovanna Mott CUTTING TOOL SHARPENER, CUTTING TOOL SHARPENER-C [Primary Care Provider] -
--- NOTE | 2022-05-12 05:28 | CT_ITS ---
STUDY: CTA HEAD AND NECK WITH CONTRAST REASON FOR EXAM: Female, 67 years old. cva RADIATION DOSAGE (If Supplied By Facility): CTDIvol = ( 24.67 ) mGy, DLP = ( 810.64 ) mGycm TECHNIQUE: CT angiography was performed with a multi-detector CT scanner. Data acquisition was obtained from the skull base through the vertex following intravenous administration of IV 100mL [id number]-370. MIP images were reconstructed from the axial data set. Post-processing of the angiographic images was performed, with multiplanar reformation and 3D reconstruction. Individualized dose optimization techniques were used for this CT. COMPARISON: No relevant priors. FINDINGS: Normal bilateral petrous carotid arteries. Nonocclusive calcified plaques along the right cavernous carotid artery with a normal supraclinoid bifurcation. Nonocclusive calcified plaques along the left cavernous carotid artery with a normal supraclinoid bifurcation. Normal right A1 segment of the anterior cerebral artery. Normal left A1 segment of the anterior cerebral artery. Normal intact anterior communicating artery (ACOM). Normal bilateral A2 segments of the anterior cerebral arteries. Normal right M1 and M2 segments of the middle cerebral arteries, with a normal M1 bifurcation. Normal left M1 and M2 segments of the middle cerebral arteries, with a normal M1 bifurcation. Small right posterior communicating artery (PCOM). Small left posterior communicating artery (PCOM). Normal bilateral vertebral arteries. Normal basilar artery with a normal basilar bifurcation. The visualized bilateral superior cerebellar (SCA) arteries are normal. Normal bilateral P1, P2 and visualized P3 segments of the posterior cerebral arteries. There is no demonstrated aneurysm of the [place]. There is no demonstrated abnormality of the visualized brain. AORTIC ARCH: Normal visualized aortic arch. Normal origins of the brachiocephalic, left common carotid, and left subclavian arteries. RIGHT CAROTID ARTERIES: Prominent calcified plaque in the anterior wall of the right common carotid bifurcation extending to the origin of the right external carotid artery. No significant stenosis in the distal end of the right common carotid artery. Widely patent right carotid bulb origin but there are prominent calcified plaques in the midportion of the right carotid bulb causing high-grade stenosis. Segmental high-grade stenosis of the right proximal internal carotid artery at the midportion of the right carotid bulb extending to the right proximal internal carotid artery due to calcified plaques more than noncalcified plaques. Normal visualized cervical portion of the right internal carotid artery. Near complete occlusion of the origin of right external carotid artery due to calcified plaques arising from the anterior wall of the right distal common carotid artery. LEFT CAROTID ARTERIES: Normal left common carotid artery (CCA). Calcified and noncalcified plaques along the posterior wall of the left carotid bulb extending to the left proximal internal carotid artery. Widely patent origin of the left internal carotid (ICA) artery and proximal intraluminal are despite the presence of calcified plaques and noncalcified plaques. Normal remaining visualized cervical portion of the left internal carotid artery. Calcified plaque in the origin of the widely patent left external carotid artery (ECA). VERTEBRAL ARTERIES: Normal bilateral codominant vertebral arteries. CT/CTA Head AND Neck W/ Contrast IMPRESSION: 1. Greater than 70% segmental stenosis in the midportion of the right carotid bulb extending to the right proximal internal carotid artery due to prominent calcified plaques and minimal noncalcified plaques. 2. Widely patent left cervical carotid artery. 3. High-grade stenosis of the right external carotid artery origin due to prominent calcified plaque. 4. Widely patent bilateral common carotid arteries and bilateral codominant vertebral arteries. 5. No significant vaso-occlusive disease of the anterior and posterior intracranial circulation. 6. Normal aortic arch and origins of the great vessels. Electronically Signed: Benjy Urban MD at 8:35 EDT ,
[2022-05-12] MEDS: 0.9% Normal Saline 1,000 ML 100 ML IV (06:03)
[2022-05-12 06:32] LABS: Absolute Neutrophil Count 6.8 X10^3/uL (2.0-7.7); Basophil# 0.09 X10^3/uL; Eosinophil# 0.37 X10^3/uL; Eosinophils% 3.9 % (0-5); Hematocrit 31.8 % (37-47); Mean Corp Hgb Conc 28.3 g/dL (32-36); Mean Corpuscular Hgb 29.9 pg (27.0-32.0); Mean Corpuscular Volume 105.6 fL (81-99); Mean Platelet Vol. 11.1 fl (6.2-12.0); Monocyte# 0.61 X10^3/uL; Monocyte% 6.5 % (0-10); NRBC Flagged by Analyzer 0 % (0-5); Neutrophil # 6.75 X10^3/uL (2.7-7.7); Neutrophil % 71.9 % (47-70); POSITIVE MORPHOLOGY YES; Platelet Count 174 K/mm3 (150-450); RBC Distribution Width CV 19.6 % (11.6-14.6); Red Blood Count 3.01 M/mm3 (4.2-5.4); White Blood Count 9.4 K/mm3 (4.4-11.0)
[2022-05-12 06:33] LABS: Differential Indicated SCAN CRITERIA MET
[2022-05-12 06:41] LABS: Partial Thromboplast Time 37.8 Seconds (24.1-36.2)
[2022-05-12 06:49] LABS: Prothrombin Time (Protime)PT. 22.6 SECONDS (11.7-14.9)
[2022-05-12 06:51] LABS: Anion Gap 3 (5-15); BUN 45 mg/dL (7-18); BUN/Creat Ratio 41.7 RATIO (10-20); Calcium,Total 9.2 mg/dL (8.5-10.1); Chloride 113 mmol/L (98-107); Creatinine, Serum 1.08 mg/dL (0.55-1.02); EST Glomerular Filtration Rate 54 mL/min (>60); Est Glom Filt Rate - Afr Amer 65 mL/min (>60); Estimated Creatinine Clearance 47.97 ml/min; Glucose 173 mg/dL (74-106); Potassium 4.2 mmol/L (3.5-5.1); Sodium Level 144 mmol/L (136-145); Troponin-I HS 40 pg/mL (3.0-54.0)
--- NOTE | 2022-05-12 06:51 | MRI_ITS ---
EXAM: MR HEAD WITHOUT INTRAVENOUS CONTRAST CLINICAL INDICATION: CVA, R FACIAL DROOP, SLURRED SPEECH TECHNIQUE: Multiplanar and multisequence MR images of the brain were obtained without intravenous contrast. This report was created using [employer] report generation technology. COMPARISON: MRI brain without contrast 11/11/2021. FINDINGS: BRAIN AND EXTRA-AXIAL SPACES: Tiny subcortical white matter T2 FLAIR hyperintensity foci in the frontal lobes are chronic white matter ischemic changes and unchanged. No intra- or extra-axial hemorrhage. No intracranial mass or mass effect. Posterior fossa structures are unremarkable. Ventricles are appropriate for age. No hydrocephalus. Basal cisterns are patent. No diffusion restriction to suspect acute or subacute ischemic infarct. Normal caval septum pellucidum and cavum vergae. SELLA: Unremarkable. Normal sella turcica, pituitary gland, infundibular stalk, optic chiasm and hypothalamus. AUDITORY SYSTEM: Unremarkable. The internal auditory canals are patent. BONES/JOINTS: Unremarkable. No discrete lytic or blastic abnormalities. SINUSES: Unremarkable as visualized. Clear. MASTOID AIR CELLS: Unremarkable as visualized. Clear. ORBITS: Unremarkable as visualized. Both globes, extraocular muscles, optic nerves and retrobulbar fat appear unremarkable. VASCULATURE: Unremarkable as visualized. Normal flow voids in the major intracranial circulation. MRI/Brain without Contrast IMPRESSION: 1. No MRI evidence of acute or subacute ischemic infarct or acute intracranial abnormality. 2. Few chronic subcortical white matter ischemic changes in both cerebral hemispheres in the frontal lobes are unchanged. 3. No MRI evidence of remote cortical-based ischemic infarcts or old lacunar infarcts. Electronically Signed: Benjy Urban MD at 10:25 EDT ,
[2022-05-12 07:01] LABS: Mucous, Urine 0 SEEN /hpf (<or=2+); Red Blood Cells-Urine 0 SEEN /hpf (0-5); Squamous Epithelial Cells - UA 0 SEEN /hpf (5-10)
[2022-05-12 07:03] LABS: Anisocytosis 3+
[2022-05-12 07:03] LABS: Color, Urine Yellow (Yellow); Glucose, Dipstick Normal (Normal); Ketone-Dipstick 5 mg/dl (Negative); Leukocyte Esterase-Dipstick 25 /ul (Negative); Nitrite-Dipstick Negative (Negative); Occult Blood-Urine Negative /ul (Negative); Protein-Dipstick 30 mg/dl (Negative); Specific Gravity, Urine 1.015 (1.002-1.030); Urine Bilirubin Dipstick Negative (Negative); Urine Clarity Clear (Clear); Urine Urobilinogen Normal (Normal)
[2022-05-12 07:08] LABS: Bacteria RARE /hpf (None Seen); White Blood Cells 0-5 SEEN /hpf (0-5)
--- NOTE | 2022-05-12 12:16 | ED.RN ---
PT'S DAUGHTER CALLED AND ASKED HOW HER MOTHER WAS DOING. SHE WAS UPDATED ON HER MEDICAL STAY HERE IN THE ED. SHE VERBALIZES UNDERSTANDING OF MOTHER'S CONDITION AND THAT SHE WILL BE RETURNING TO THE INTERMEDIATE. NO FURTHER QUESTIONS.
[2022-05-12 12:21] LABS: Bedside Glucose 116 mg/dL (74-106)
== END 2022-05-12 12:51 | disposition skilled nursing facility (03) ==
PROVIDERS: Emergency Medicine; Emergency Provider Emergency Medicine; PCP Nurse Practitioner Adult Health; Visit Provider Emergency Medicine
DX: I63.9 Cerebral infarction, unspecified (principal); Z89.512 Acquired absence of left leg below knee; J44.9 Chronic obstructive pulmonary disease, unspecified; I11.0 Hypertensive heart disease with heart failure; I50.32 Chronic diastolic (congestive) heart failure; E11.42 Type 2 diabetes mellitus with diabetic polyneuropathy; I48.91 Unspecified atrial fibrillation; R41.82 Altered mental status, unspecified; I25.10 Atherosclerotic heart disease of native coronary artery without angina pectoris; E78.5 Hyperlipidemia, unspecified; Z79.899 Other long term (current) drug therapy; Z87.891 Personal history of nicotine dependence; Z79.01 Long term (current) use of anticoagulants; R47.1 Dysarthria and anarthria; R29.706 NIHSS score 6
CPT/HCPCS: 70450; 70496; 70498; 70551; 71045; 80048; 81001; 82962; 84484; 85025; 85610; 85730; 93005; 96360; 96361; 99285; Q9967; A4216

== ENCOUNTER 2022-05-14 14:19 | Emergency (ER) | payer MEDICARE, MEDICAID, SELFPAY ==
[2022-05-14] VITALS (9 sets, daily range): BP systolic 99–121; BP diastolic 63–78; PULSE 95–112; RESP 17–24; TEMP 35.7–36.1; O2SAT 97–99; BMI 34.2
--- NOTE | 2022-05-14 14:38 | EX.ED.DYSGE1 ---
HPI <DESHAWN Bloom - Last Filed: 05/14/22 19:48> History of Present Illness Chief Complaint: Hypoglycemia Narrative Narrative: 67-year-old female with PMH of HTN, HLD, DM2, COPD on chronic oxygen, A-fib on Eliquis, left [id number]-ixag amputation presents from SNF for reportedly low glucose of 30. She was discharged from the hospital 2 days ago after negative stroke work-up. Blood sugar last night was 124 and they administered a Lantus. SNF staff states glucose was low this morning so they did not give any additional insulin. She was given glucagon and a D10 infusion and brought in by EMS. Patient states she is feeling fatigued and somewhat short of breath but this is chronic. She always wears 3 to 4 L O2. Denies chest pain. No vomiting or diarrhea. She has an indwelling Knight. PFSH <DESHAWN Bloom - Last Filed: 05/14/22 19:48> [facility] Medical History (Updated 05/14/22 @ 19:46 by DESHAWN Bloom) Acute cervical myofascial strain Acute on chronic respiratory failure with hypoxemia Acute respiratory failure with hypoxia Amputated toe of left foot Anemia Anemia Asthma Atherosclerotic heart disease of poarch coronary artery without angina pectoris Atrial fibrillation Atrial fibrillation Atrial fibrillation with rapid ventricular response CAD (coronary artery disease) CHF (congestive heart failure) Chronic congestive heart failure Chronic heart failure with preserved ejection fraction (HFpEF) Chronic heel ulcer Chronic kidney disease (CKD) stage G3b/A1, moderately decreased glomerular filtration rate (GFR) between 30-44 mL/min/1.73 square meter and albuminuria creatinine ratio less than 30 mg/g Chronic respiratory failure with hypoxia Chronic respiratory failure with hypoxia, on home oxygen therapy Chronic ulcer of great toe of left foot Closed head injury Congestive heart failure (CHF) COPD (chronic obstructive pulmonary disease) Current use of insulin Debility Decubitus ulcer of dorsum of foot, stage 2 Decubitus ulcer of left heel, stage 2 Decubitus ulcer of left heel, stage 3 Decubitus ulcer, heel, left, unstageable Depression Diabetes mellitus with diabetic polyneuropathy Diabetes type 2, controlled Diabetic foot ulcers Diverticulitis Dry gangrene Essential hypertension Former smoker History of amputation of left great toe History of non-ST elevation myocardial infarction (NSTEMI) (12/30/17) Hyperlipidemia Hypoglycemia due to type 1 diabetes mellitus Hypothyroid Morbid obesity Multiple wounds Myocardial infarct Non-rheumatic tricuspid valve insufficiency Nondisplaced fracture of distal phalanx of right great toe, initial encounter for closed fracture Nonrheumatic mitral (valve) insufficiency Obesity Obstructive sleep apnea On home O2 Renal insufficiency Secondary pulmonary arterial hypertension Thrombocytopenia Type 2 diabetes mellitus Vitamin D deficiency Home Medications aspirin 81 mg tablet,delayed release (Adult Aspirin Regimen) 81 mg PO DAILY HEART HEALTH 05/17/21 [History Last Taken 04/25/22 08:30] levothyroxine 100 mcg tablet (Synthroid) 125 mcg PO DAILY THYROID 12/13/21 [History Last Taken 04/26/22 06:00] montelukast 10 mg tablet 10 mg PO QHS ALLERGIES 12/13/21 [History Last Taken 04/25/22 20:58] sennosides 8.6 mg-docusate sodium 50 mg tablet (Senna-S) 1 tab PO BID STOOL SOFTNER 12/13/21 [History Last Taken 04/25/22 20:58] trazodone 100 mg tablet 150 mg PO QHS SLEEP 12/13/21 [History Last Taken 04/25/22 20:58] albuterol sulfate 90 mcg/actuation aerosol inhaler 2 puff inhalation Q6H PRN Shortness Of Breath 12/19/21 [History Last Taken Unknown] ferrous sulfate 325 mg (65 mg iron) tablet (FeroSul) 325 mg PO DAILY ANEMIA 12/28/21 [History Last Taken 04/25/22 11:00] insulin lispro 100 unit/mL subcutaneous pen (Humalog KwikPen (U-100) Insulin) 10 unit subcut TIDAC DIABETES 12/28/21 [History Last Taken 04/25/22 20:40] nystatin 100,000 unit/gram topical powder (Nyamyc) 1 applic topical TID IRRITATION 12/28/21 [History Last Taken 04/25/22 20:58] omeprazole 40 mg capsule,delayed release 40 mg PO BID GERD 12/28/21 [History Last Taken 04/25/22 20:58] polyethylene glycol 3350 17 gram oral powder packet 17 g PO DAILY CONSTIPATION 12/28/21 [History Last Taken 04/25/22 08:30] paroxetine HCl 20 mg tablet (Paxil) 20 mg PO DAILY MOOD 01/12/22 [History Last Taken 04/26/22 08:30] insulin detemir U-100 100 unit/mL (3 mL) subcutaneous pen (Levemir FlexTouch U-100 Insulin) 25 unit (0.25 mL) subcut QHS blood sugar #15 mL 02/24/22 [Rx Last Taken 04/24/22 19:30] acetaminophen 325 mg tablet (Tylenol) 650 mg PO Q6H PRN PAIN/FEVER 04/26/22 [History Last Taken 04/26/22 06:00] apixaban 5 mg tablet (Eliquis) 5 mg PO BID BLOOD THINNER 04/26/22 [History Last Taken 04/26/22 08:30] arginine 7 gram-glutam 7 gram-CaHMB 1.5 dgju-ljwwl-oa-min oral pwd pkt (Say (with collagen)) 1 packet PO BID WOUND HEALING 04/26/22 [History Last Taken 04/25/22 11:00] gabapentin 300 mg capsule 300 mg PO TID NERVE PAIN 04/26/22 [History Last Taken 04/25/22 13:30] mirtazapine 15 mg tablet 15 mg PO QHS MOOD 04/26/22 [History Last Taken 04/25/22 20:58] potassium chloride 20 mEq tablet,extended release(part/cryst) (Klor-Con M) 20 meq PO TID SUPPLEMENT 04/26/22 [History Last Taken 04/26/22 06:00] bumetanide 0.5 mg tablet 1 mg PO TID #0 tabs 05/10/22 [Rx Last Taken Unknown] diltiazem HCl 60 mg tablet 60 mg PO Q6 #0 tabs 05/10/22 [Rx Last Taken Unknown] metoprolol tartrate 25 mg tablet 12.5 mg PO BID #0 tabs 05/10/22 [Rx Last Taken Unknown] Allergy/AdvReac Type Severity Reaction Status Date / Time doxycycline Allergy NEEDS Verified 05/15/22 09:04 FOLLOW-UP latex Allergy NEEDS Verified 05/15/22 09:04 FOLLOW-UP Sulfa (Sulfonamide Allergy Anaphylaxis Verified 05/15/22 09:04 Antibiotics) sulfur dioxide Allergy Anaphylaxis Verified 05/15/22 09:04 oxycodone AdvReac Other Verified 05/15/22 09:04 Family History Grandmother Diabetes Mother Heart disease Surgical History H/O right heart catheterization History of cataract surgery History of coronary artery stent placement (02/24/17) History of heart artery stent Tubal ligation status Social History household members: none housing: other details: [facility]. Smoking Status: Former smoker how long ago did patient quit smokin alcohol intake: former year quit: 1999 substance use type: does not use caffeine: Yes Type: carbonated beverages and tea ROS <DESHAWN Bloom - Last Filed: 05/14/22 19:48> ROS ED ROS Narrative Constitutional: Negative for fever, chills, malaise. ENT: Negative for sore throat, ear pain, rhinorrhea. CVS: Negative for palpitations, chest pain, syncope. Respiratory: Positive for shortness of breath. Negative for cough. GI: Negative for abdominal pain, nausea, vomiting, diarrhea. : Negative for hematuria. Neuro: Negative for headache, motor/sensory dysfunction. Skin: Negative for rash. EXAM <DESHAWN Bloom - Last Filed: 05/14/22 19:48> Physical Exam Narrative Exam Narrative: CONST: Patient sitting in no acute distress. EYES: Normal inspection. ENT: Normal inspection, moist mucous membranes. NECK: Normal inspection. RESP: No respiratory distress, diminished lung sounds right base. On baseline 3 L nasal cannula. CVS: Regular rate and rhythm, no murmur, no gallop. ABD: Soft and nontender, no guarding or rebound, nondistended. : Indwelling Knight intact with clear yellow urine. SKIN: Color normal, no rash, warm, dry, intact. EXTREMITIES: Pitting edema both upper extremities, left hukvc-ylg-bizd amputation suture line has no dehiscence or erythema. NEURO: Oriented x4. PSYCH: Normal affect. Const Vital Signs: 05/14/22 14:20 05/14/22 14:26 05/14/22 14:26 Temperature 96.9 F L Temperature Source Temporal Pulse Rate 112 H 108 H Respiratory Rate 24 H 17 Respiratory Effort Normal Non-Labored Respiratory Pattern Normal Blood Pressure 112/70 Blood Pressure Mean 84 Pulse Ox 97 98 Oxygen Delivery Method Nasal Cannula Nasal Cannula Oxygen Flow Rate (L/min) 3 3 05/14/22 15:19 05/14/22 15:51 05/14/22 16:00 Temperature Temperature Source Pulse Rate 108 H 103 H 104 H Respiratory Rate 18 18 18 Respiratory Effort Respiratory Pattern Blood Pressure 118/71 105/63 103/65 Blood Pressure Mean 86 77 77 Pulse Ox 98 99 99 Oxygen Delivery Method Nasal Cannula Nasal Cannula Nasal Cannula Oxygen Flow Rate (L/min) 3 3 3 05/14/22 17:00 05/14/22 18:00 05/14/22 18:18 Temperature Temperature Source Pulse Rate 101 H 106 H 103 H Respiratory Rate 18 18 19 H Respiratory Effort Respiratory Pattern Blood Pressure 103/66 99/67 121/67 H Blood Pressure Mean 78 77 85 Pulse Ox 98 98 99 Oxygen Delivery Method Nasal Cannula Nasal Cannula Nasal Cannula Oxygen Flow Rate (L/min) 3 3 3 05/14/22 20:11 Temperature 96.2 F L Temperature Source Pulse Rate 95 Respiratory Rate 20 H Respiratory Effort Respiratory Pattern Blood Pressure 111/78 Blood Pressure Mean Pulse Ox 99 Oxygen Delivery Method Oxygen Flow Rate (L/min) <Dr. Izaiah Hardin, DO - Last Filed: 05/15/22 09:14> Physical Exam Const Vital Signs: 05/14/22 14:20 05/14/22 14:26 05/14/22 14:26 Temperature 96.9 F L Temperature Source Temporal Pulse Rate 112 H 108 H Respiratory Rate 24 H 17 Respiratory Effort Normal Non-Labored Respiratory Pattern Normal Blood Pressure 112/70 Blood Pressure Mean 84 Pulse Ox 97 98 Oxygen Delivery Method Nasal Cannula Nasal Cannula Oxygen Flow Rate (L/min) 3 3 05/14/22 15:19 05/14/22 15:51 05/14/22 16:00 Temperature Temperature Source Pulse Rate 108 H 103 H 104 H Respiratory Rate 18 18 18 Respiratory Effort Respiratory Pattern Blood Pressure 118/71 105/63 103/65 Blood Pressure Mean 86 77 77 Pulse Ox 98 99 99 Oxygen Delivery Method Nasal Cannula Nasal Cannula Nasal Cannula Oxygen Flow Rate (L/min) 3 3 3 05/14/22 17:00 05/14/22 18:00 05/14/22 18:18 Temperature Temperature Source Pulse Rate 101 H 106 H 103 H Respiratory Rate 18 18 19 H Respiratory Effort Respiratory Pattern Blood Pressure 103/66 99/67 121/67 H Blood Pressure Mean 78 77 85 Pulse Ox 98 98 99 Oxygen Delivery Method Nasal Cannula Nasal Cannula Nasal Cannula Oxygen Flow Rate (L/min) 3 3 3 05/14/22 20:11 Temperature 96.2 F L Temperature Source Pulse Rate 95 Respiratory Rate 20 H Respiratory Effort Respiratory Pattern Blood Pressure 111/78 Blood Pressure Mean Pulse Ox 99 Oxygen Delivery Method Oxygen Flow Rate (L/min) [facility] <DESHAWN Bloom - Last Filed: 05/14/22 19:48> [employer] Narrative Medical decision making narrative: History gathered from: Patient, paramedics Patient sent in for diabetic hyperglycemia. SNF administer Lantus last night she has not eaten or drank anything today. It was 30 via EMS who administered glucagon and D10. Patient awake and alert on arrival. Heart rate is 112 with otherwise normal vital signs. On chronic 3 L O2. She does have pitting edema of both upper extremities. Left zjqpd-lze-qzhs amputation incision site healing well. Labs show white count of 11.5, stable hemoglobin at 8.3. NA 146, K5.4, creatinine 1.38 slightly up from previous. CXR shows worsening CHF. She has no respiratory distress and is on her baseline 3 L. Renal function is low enough that I think it is appropriate to give a dose of IV Lasix 40 mg as this will treat her CHF as well as hyperkalemia. She has an indwelling Knight already. Patient states she does not really like to eat or drink but she did have some juan ramon crackers, peanut butter, small amount of Sprite here. Glucose has been stable slowly going up from 79, 93, 99, latest 112 around 7:30 PM. I feel she can be discharged back to her SNF. They should hold her insulin unless she is eating. Patient was comfortable with this plan and discharged in stable condition. Differential: Diabetic hyperglycemia, poor p.o. intake, electrolyte abnormality, infection I considered admission for hypoglycemia but with encouragement patient is eating and drinking here, I feel this can be continued at SNF. She is feeling well has no complaints has been awake and alert and neurologically intact entirety of stay. Lab Data Attestation: I reviewed the patient's lab results. Labs: Laboratory Results - last 24 hr 05/14/22 05/14/22 05/14/22 14:25 14:25 15:54 WBC 11.5 H RBC 2.75 L Hgb 8.3 L Hct 30.2 L MCV 109.8 H MCH 30.2 MCHC 27.5 L RDW Std Deviation 80.8 H RDW Coeff of Magen 20.0 H Plt Count 124 L MPV 10.7 Immature Gran % (Auto) 0.500 Neut % (Auto) 88.7 H Lymph % (Auto) 6.7 L [place] % (Auto) 3.3 Eos % (Auto) 0.4 Baso % (Auto) 0.4 Absolute Neuts (auto) 10.1 H Absolute Lymphs (auto) 0.77 L Nucleated RBC % 0 Differential Comment SCANNED Polychromasia RARE Anisocytosis 2+ Microcytosis 1+ Macrocytosis 1+ Sodium 146 H Potassium 5.4 H Chloride 115 H Carbon Dioxide 28.0 Anion Gap 3 L BUN 45 H Creatinine 1.38 H Estim Creat Clear Calc 37.54 Est GFR (MDRD) Af Amer 49 L Est GFR (MDRD) Non-Af 41 L BUN/Creatinine Ratio 32.6 H Glucose 105 Calcium 8.9 POC Glucose 103 05/14/22 05/14/22 05/14/22 16:56 17:38 18:16 WBC RBC Hgb Hct MCV MCH MCHC RDW Std Deviation RDW Coeff of Magen Plt Count MPV Immature Gran % (Auto) Neut % (Auto) Lymph % (Auto) [place] % (Auto) Eos % (Auto) Baso % (Auto) Absolute Neuts (auto) Absolute Lymphs (auto) Nucleated RBC % Differential Comment Polychromasia Anisocytosis Microcytosis Macrocytosis Sodium Potassium Chloride Carbon Dioxide Anion Gap BUN Creatinine Estim Creat Clear Calc Est GFR (MDRD) Af Amer Est GFR (MDRD) Non-Af BUN/Creatinine Ratio Glucose Calcium POC Glucose 79 93 99 05/14/22 19:24 WBC RBC Hgb Hct MCV MCH MCHC RDW Std Deviation RDW Coeff of Magen Plt Count MPV Immature Gran % (Auto) Neut % (Auto) Lymph % (Auto) [place] % (Auto) Eos % (Auto) Baso % (Auto) Absolute Neuts (auto) Absolute Lymphs (auto) Nucleated RBC % Differential Comment Polychromasia Anisocytosis Microcytosis Macrocytosis Sodium Potassium Chloride Carbon Dioxide Anion Gap BUN Creatinine Estim Creat Clear Calc Est GFR (MDRD) Af Amer Est GFR (MDRD) Non-Af BUN/Creatinine Ratio Glucose Calcium POC Glucose 112 H Radiography Diagnostic Testing: Clinical Impression(s) from Imaging Studies Chest X-Ray 05/14/22 14:50 IMPRESSION: Pulmonary findings appear worse. Electronically Signed: Sony Bruce MD at 15:25 EDT , <Dr. Izaiah Hardin, DO - Last Filed: 05/15/22 09:14> [facility] Lab Data Labs: Laboratory Results - last 24 hr 05/14/22 05/14/22 05/14/22 14:25 14:25 15:54 WBC 11.5 H RBC 2.75 L Hgb 8.3 L Hct 30.2 L MCV 109.8 H MCH 30.2 MCHC 27.5 L RDW Std Deviation 80.8 H RDW Coeff of Magen 20.0 H Plt Count 124 L MPV 10.7 Immature Gran % (Auto) 0.500 Neut % (Auto) 88.7 H Lymph % (Auto) 6.7 L [place] % (Auto) 3.3 Eos % (Auto) 0.4 Baso % (Auto) 0.4 Absolute Neuts (auto) 10.1 H Absolute Lymphs (auto) 0.77 L Nucleated RBC % 0 Differential Comment SCANNED Polychromasia RARE Anisocytosis 2+ Microcytosis 1+ Macrocytosis 1+ Sodium 146 H Potassium 5.4 H Chloride 115 H Carbon Dioxide 28.0 Anion Gap 3 L BUN 45 H Creatinine 1.38 H Estim Creat Clear Calc 37.54 Est GFR (MDRD) Af Amer 49 L Est GFR (MDRD) Non-Af 41 L BUN/Creatinine Ratio 32.6 H Glucose 105 Calcium 8.9 POC Glucose 103 05/14/22 05/14/22 05/14/22 16:56 17:38 18:16 WBC RBC Hgb Hct MCV MCH MCHC RDW Std Deviation RDW Coeff of Magen Plt Count MPV Immature Gran % (Auto) Neut % (Auto) Lymph % (Auto) [place] % (Auto) Eos % (Auto) Baso % (Auto) Absolute Neuts (auto) Absolute Lymphs (auto) Nucleated RBC % Differential Comment Polychromasia Anisocytosis Microcytosis Macrocytosis Sodium Potassium Chloride Carbon Dioxide Anion Gap BUN Creatinine Estim Creat Clear Calc Est GFR (MDRD) Af Amer Est GFR (MDRD) Non-Af BUN/Creatinine Ratio Glucose Calcium POC Glucose 79 93 99 05/14/22 19:24 WBC RBC Hgb Hct MCV MCH MCHC RDW Std Deviation RDW Coeff of Magen Plt Count MPV Immature Gran % (Auto) Neut % (Auto) Lymph % (Auto) [place] % (Auto) Eos % (Auto) Baso % (Auto) Absolute Neuts (auto) Absolute Lymphs (auto) Nucleated RBC % Differential Comment Polychromasia Anisocytosis Microcytosis Macrocytosis Sodium Potassium Chloride Carbon Dioxide Anion Gap BUN Creatinine Estim Creat Clear Calc Est GFR (MDRD) Af Amer Est GFR (MDRD) Non-Af BUN/Creatinine Ratio Glucose Calcium POC Glucose 112 H Radiography Diagnostic Testing: Clinical Impression(s) from Imaging Studies Chest X-Ray 05/14/22 14:50 IMPRESSION: Pulmonary findings appear worse. Electronically Signed: Sony Bruce MD at 15:25 EDT Reading Location ID and State: [facility] / [place] , Service support , Treatment and Re-Evaluation :: I have personally performed a face to face assessment of the patient and have reviewed the JOSEFINA Note. I performed a substantive portion of the visit including all aspects of the following. My wise findings include: History: Patient presents with low blood sugar that was noticed today. Patient has not been eating or drinking much over the past few days. Patient was given her normal insulin this morning. detention staff noted that the patient blood sugar was low this afternoon and called EMS. Patient was then brought to the emergency department. EMS administered D10 solution and glucagon. Patient is more awake and alert at this time. Exam: Vital signs are stable except for mild tachycardia of 108. Patient is afebrile. Patient is in no acute distress. Oral mucosa is pink and moist. Neck is supple. Trachea is midline. There is no JVD. Heart was regular and tachycardic. Lungs were diminished in all lung ozuna. There is poor respiratory effort noted. Abdomen is soft. Bowel sounds are normal. There is no tenderness. Cranial nerves II through XII are grossly intact. There are no focal motor or sensory deficits noted. There is 2+ pitting edema of the upper extremities and right lower extremity bilaterally. Medical Decision Making: Patient is more awake and alert at this time. Differential diagnosis includes hypoglycemia and electrolyte abnormality. CBC will be obtained to assess for leukocytosis and anemia. Basic metabolic profile will be obtained to assess for electrolyte abnormality and renal function. Chest x-ray will be obtained to assess for congestive heart failure and pneumonia. Chest x-ray was obtained. There is 1 view. On my interpretation, there is worsening of the pleural effusion. CBC was reviewed. There is a mild leukocytosis of 11.5. There is a mild anemia with hemoglobin of 8.3 and hematocrit 30.2. These are stable compared to previous results. Basic metabolic profile was reviewed. There is a mild hyperkalemia of 5.4. Sodium was 146 and chloride was 115. BUN was 45 and creatinine was 1.38. These are consistent with prior results. Patient's blood sugar remained stable here. Patient was able to eat. Patient will be discharged back to the extended care facility. Patient understood and was agreeable with the plan. All questions were answered. Discharge Plan Triage Chief Complaint: Hypoglycemia ED Midlevel Provider: Imani Valencia ED Provider: Izaiah Hardin Dx/Rx/DC Orders Clinical Impression: Diabetic hypoglycemia, CHF (congestive heart failure), Decreased oral intake Prescriptions: No Action aspirin [Adult Aspirin Regimen] 81 mg tablet,delayed release (DR/EC) 81 mg PO DAILY sennosides-docusate sodium [Senna-S] 8.6-50 mg Tablet 1 tab PO BID levothyroxine [Synthroid] 100 mcg tablet 125 mcg PO DAILY trazodone 100 mg tablet 150 mg PO QHS montelukast 10 mg tablet 10 mg PO QHS albuterol sulfate 90 mcg/actuation HFA aerosol inhaler 2 puff INHALATION Q6H PRN (Reason: Shortness Of Breath) omeprazole 40 mg Capsule,Delayed Release(Dr/Ec) 40 mg PO BID polyethylene glycol 3350 17 gram powder in packet 17 g PO DAILY ferrous sulfate [FeroSul] 325 mg (65 mg iron) tablet 325 mg PO DAILY nystatin [Nyamyc] 100,000 unit/gram powder 1 applic topical TID Protocol: *Topical Application Instructions APPLICATION INSTRUCTIONS: apply to groin tid for redness insulin lispro [Humalog KwikPen Insulin] 100 unit/mL insulin pen 10 unit subcut TIDAC paroxetine HCl [Paxil] 20 mg Tablet 20 mg PO DAILY Levemir FlexTouch U-100 Insuln 100 unit/mL (3 mL) insulin pen 25 unit SUBCUT QHS Qty: 15 0RF gabapentin 300 mg capsule 300 mg PO TID mirtazapine 15 mg tablet 15 mg PO QHS acetaminophen [Tylenol] 325 mg tablet 650 mg PO Q6H PRN (Reason: PAIN/FEVER) potassium chloride [Klor-Con M20] 20 mEq tablet,ER particles/crystals 20 meq PO TID Eliquis 5 mg tablet 5 mg PO BID Say (with collagen) 7-7-1.5 gram powder in packet 1 packet PO BID bumetanide 0.5 mg Tablet 1 mg PO TID Qty: 0 0RF diltiazem HCl 60 mg Tablet 60 mg PO Q6 Qty: 0 0RF metoprolol tartrate 25 mg Tablet 12.5 mg PO BID Qty: 0 0RF Primary Care Provider: Geovanna Mott KNITTING MACHINE OPERATOR Referrals: Geovanna Mott KNITTING MACHINE OPERATOR, KNITTING MACHINE OPERATOR-C [Primary Care Provider] - Activity Restrictions/Additional Instructions: Glucose has been stable around 99-1 12. I think the main issue is patient is not eating or drinking much and was given Lantus last night. I would hold her insulin until you speak with the SNF doctor unless she is eating a full meal. Return if symptoms worsen Disposition Disposition: Senior Living Facility Discharge Location: [facility] [place] Discharge Date/Time: 05/14/22 20:54
--- NOTE | 2022-05-14 14:50 | RAD_ITS ---
STUDY: XR Chest 1 View 05/14/2022 2:44 PM REASON FOR EXAM: Female, 67 years old. CHEST PAIN dyspnea COMPARISON: Two days ago. TECHNIQUE: XR Chest 1 View FINDINGS: There are bilateral pleural effusions. There are bilateral infiltrates. There is no pneumothorax. stable sclerotic focus in the right humerus. Enlarged heart size. Normal mediastinum. Prominent sol. Prominent appearing increased interstitial lung markings. Prominent visualized pulmonary arteries. There is atherosclerotic calcification of the aortic arch with tortuosity. There are diffuse degenerative changes of the visualized thoracic spine. There is degenerative osteoarthritis of the bilateral shoulders. There is no demonstrated abnormality of the visualized soft tissue structures of the upper abdomen. RAD/Chest 1 View (Portable) IMPRESSION: Pulmonary findings appear worse. Electronically Signed: Sony Bruce MD at 15:25 EDT ,
[2022-05-14 14:51] LABS: Absolute Lymphocyte Count 0.77 X10^3/uL (0.83-4.51); Absolute Neutrophil Count 10.1 X10^3/uL (2.0-7.7); Basophil# 0.05 X10^3/uL; Basophil% 0.4 % (0-1); Eosinophil# 0.05 X10^3/uL; Eosinophils% 0.4 % (0-5); Hematocrit 30.2 % (37-47); Hemoglobin 8.3 g/dL (12.0-15.0); Lymphocyte # 0.77 X10^3/ul (0.83-4.51); Lymphocyte % 6.7 % (19-41); Mean Corp Hgb Conc 27.5 g/dL (32-36); Mean Corpuscular Hgb 30.2 pg (27.0-32.0); Mean Corpuscular Volume 109.8 fL (81-99); Mean Platelet Vol. 10.7 fl (6.2-12.0); Monocyte# 0.38 X10^3/uL; Monocyte% 3.3 % (0-10); NRBC Flagged by Analyzer 0 % (0-5); Neutrophil # 10.14 X10^3/uL (2.7-7.7); Neutrophil % 88.7 % (47-70); POSITIVE MORPHOLOGY YES; Platelet Count 124 K/mm3 (150-450); RBC Distribution Width SD 80.8 fl (35.1-43.9); Red Blood Count 2.75 M/mm3 (4.2-5.4); White Blood Count 11.5 K/mm3 (4.4-11.0)
[2022-05-14 15:02] LABS: Anion Gap 3 (5-15); BUN 45 mg/dL (7-18); BUN/Creat Ratio 32.6 RATIO (10-20); Calcium,Total 8.9 mg/dL (8.5-10.1); Chloride 115 mmol/L (98-107); Creatinine, Serum 1.38 mg/dL (0.55-1.02); EST Glomerular Filtration Rate 41 mL/min (>60); Est Glom Filt Rate - Afr Amer 49 mL/min (>60); Estimated Creatinine Clearance 37.54 ml/min; Glucose 105 mg/dL (74-106); Potassium 5.4 mmol/L (3.5-5.1); Sodium Level 146 mmol/L (136-145)
[2022-05-14 15:16] LABS: Anisocytosis 2+; Differential Comment SCANNED; Differential Indicated SCAN CRITERIA MET; Macrocytosis 1+
[2022-05-14 15:17] LABS: Microcytosis 1+; Polychromasia RARE
[2022-05-14] MEDS: Furosemide 40 MG/4 ML Vial IV (15:49)
[2022-05-14 16:21] LABS: Bedside Glucose 103 mg/dL (74-106)
[2022-05-14 17:15] LABS: Bedside Glucose 79 mg/dL (74-106)
--- NOTE | 2022-05-14 17:24 | ED.RN ---
pt given glass of Oj and 1/2 juan ramon cracker with PB. pt stating she has no appetite to eat or drink.
[2022-05-14 18:01] LABS: Bedside Glucose 93 mg/dL (74-106)
[2022-05-14 18:36] LABS: Bedside Glucose 99 mg/dL (74-106)
[2022-05-14 19:46] LABS: Bedside Glucose 112 mg/dL (74-106)
--- NOTE | 2022-05-14 20:02 | NURSING ---
This RN called report to [facility], spoke with Kristyn, transport to be here approximately at 2039
== END 2022-05-14 20:54 | disposition skilled nursing facility (03) ==
LOC: ED 14:47
PROVIDERS: Physician Assistant; Emergency Provider Emergency Medicine; PCP Nurse Practitioner Adult Health; Visit Provider Emergency Medicine
DX: E11.649 Type 2 diabetes mellitus with hypoglycemia without coma (principal); Z89.612 Acquired absence of left leg above knee; J44.9 Chronic obstructive pulmonary disease, unspecified; I13.0 Hypertensive heart and chronic kidney disease with heart failure and stage 1 through stage 4 chronic kidney disease, or unspecified chronic kidney disease; I50.32 Chronic diastolic (congestive) heart failure; E11.22 Type 2 diabetes mellitus with diabetic chronic kidney disease; E11.42 Type 2 diabetes mellitus with diabetic polyneuropathy; I48.91 Unspecified atrial fibrillation; Z79.4 Long term (current) use of insulin; N18.32 Chronic kidney disease, stage 3b; E87.5 Hyperkalemia; Z87.891 Personal history of nicotine dependence; I25.10 Atherosclerotic heart disease of native coronary artery without angina pectoris; E78.5 Hyperlipidemia, unspecified; Z79.01 Long term (current) use of anticoagulants
CPT/HCPCS: 71045; 80048; 82962; 85025; 96374; 99284; A4216; J1940

== ENCOUNTER 2022-05-15 09:02 | Emergency (ER) | payer MEDICARE, MEDICAID, SELFPAY ==
[2022-05-15 09:04] VITALS: BP 118/70; PULSE 113; RESP 18; TEMP 35.8; O2SAT 95; BMI 36.0
--- NOTE | 2022-05-15 09:33 | EX.ED.DYSGE1 ---
HPI History of Present Illness Chief Complaint: Hypoglycemia Informant: patient Onset/Context/Timing Onset: Today Context: Sudden Onset Timing: Continuous Quality: Weakness Location: Generalized Worsened by: Nothing Relieved by: Nothing Narrative Narrative: Presents with hypoglycemic episode that occurred this morning. Patient states she woke up this morning and was feeling okay. Patient states she was told that her blood sugar dropped to 19. Patient was seen here yesterday for the same thing. Patient was able to eat yesterday. Patient states that today she has decreased appetite. Patient denies any fevers or chills. Patient does admit to some shortness of breath and has a history of congestive heart failure. Patient denies any nausea or vomiting. [facility] Medical History Acute cervical myofascial strain Acute on chronic respiratory failure with hypoxemia Acute respiratory failure with hypoxia Amputated toe of left foot Anemia Anemia Asthma Atherosclerotic heart disease of [place] coronary artery without angina pectoris Atrial fibrillation Atrial fibrillation Atrial fibrillation with rapid ventricular response CAD (coronary artery disease) CHF (congestive heart failure) Chronic congestive heart failure Chronic heart failure with preserved ejection fraction (HFpEF) Chronic heel ulcer Chronic kidney disease (CKD) stage G3b/A1, moderately decreased glomerular filtration rate (GFR) between 30-44 mL/min/1.73 square meter and albuminuria creatinine ratio less than 30 mg/g Chronic respiratory failure with hypoxia Chronic respiratory failure with hypoxia, on home oxygen therapy Chronic ulcer of great toe of left foot Closed head injury Congestive heart failure (CHF) COPD (chronic obstructive pulmonary disease) Current use of insulin Debility Decubitus ulcer of dorsum of foot, stage 2 Decubitus ulcer of left heel, stage 2 Decubitus ulcer of left heel, stage 3 Decubitus ulcer, heel, left, unstageable Depression Diabetes mellitus with diabetic polyneuropathy Diabetes type 2, controlled Diabetic foot ulcers Diverticulitis Dry gangrene Essential hypertension Former smoker History of amputation of left great toe History of non-ST elevation myocardial infarction (NSTEMI) (02/24/17) Hyperlipidemia Hypoglycemia due to type 1 diabetes mellitus Hypothyroid Morbid obesity Multiple wounds Myocardial infarct Non-rheumatic tricuspid valve insufficiency Nondisplaced fracture of distal phalanx of right great toe, initial encounter for closed fracture Nonrheumatic mitral (valve) insufficiency Obesity Obstructive sleep apnea On home O2 Renal insufficiency Secondary pulmonary arterial hypertension Thrombocytopenia Type 2 diabetes mellitus Vitamin D deficiency Home Medications aspirin 81 mg tablet,delayed release (Adult Aspirin Regimen) 81 mg PO DAILY HEART HEALTH 05/17/21 [History Last Taken 04/25/22 08:30] levothyroxine 100 mcg tablet (Synthroid) 125 mcg PO DAILY THYROID 12/13/21 [History Last Taken 04/26/22 06:00] montelukast 10 mg tablet 10 mg PO QHS ALLERGIES 12/13/21 [History Last Taken 04/25/22 20:58] sennosides 8.6 mg-docusate sodium 50 mg tablet (Senna-S) 1 tab PO BID STOOL SOFTNER 12/13/21 [History Last Taken 04/25/22 20:58] trazodone 100 mg tablet 150 mg PO QHS SLEEP 12/13/21 [History Last Taken 04/25/22 20:58] albuterol sulfate 90 mcg/actuation aerosol inhaler 2 puff inhalation Q6H PRN Shortness Of Breath 12/19/21 [History Last Taken Unknown] ferrous sulfate 325 mg (65 mg iron) tablet (FeroSul) 325 mg PO DAILY ANEMIA 12/28/21 [History Last Taken 04/25/22 11:00] insulin lispro 100 unit/mL subcutaneous pen (Humalog KwikPen (U-100) Insulin) 10 unit subcut TIDAC DIABETES 12/28/21 [History Last Taken 04/25/22 20:40] nystatin 100,000 unit/gram topical powder (Nyamyc) 1 applic topical TID IRRITATION 12/28/21 [History Last Taken 04/25/22 20:58] omeprazole 40 mg capsule,delayed release 40 mg PO BID GERD 12/28/21 [History Last Taken 04/25/22 20:58] polyethylene glycol 3350 17 gram oral powder packet 17 g PO DAILY CONSTIPATION 12/28/21 [History Last Taken 04/25/22 08:30] paroxetine HCl 20 mg tablet (Paxil) 20 mg PO DAILY MOOD 01/12/22 [History Last Taken 04/26/22 08:30] insulin detemir U-100 100 unit/mL (3 mL) subcutaneous pen (Levemir FlexTouch U-100 Insulin) 25 unit (0.25 mL) subcut QHS blood sugar #15 mL 12/30/22 [Rx Last Taken 04/24/22 19:30] acetaminophen 325 mg tablet (Tylenol) 650 mg PO Q6H PRN PAIN/FEVER 04/26/22 [History Last Taken 04/26/22 06:00] apixaban 5 mg tablet (Eliquis) 5 mg PO BID BLOOD THINNER 04/26/22 [History Last Taken 04/26/22 08:30] arginine 7 gram-glutam 7 gram-CaHMB 1.5 [id number] oral pwd pkt (Say (with collagen)) 1 packet PO BID WOUND HEALING 04/26/22 [History Last Taken 04/25/22 11:00] gabapentin 300 mg capsule 300 mg PO TID NERVE PAIN 04/26/22 [History Last Taken 04/25/22 13:30] mirtazapine 15 mg tablet 15 mg PO QHS MOOD 04/26/22 [History Last Taken 04/25/22 20:58] potassium chloride 20 mEq tablet,extended release(part/cryst) (Klor-Con M) 20 meq PO TID SUPPLEMENT 04/26/22 [History Last Taken 04/26/22 06:00] bumetanide 0.5 mg tablet 1 mg PO TID #0 tabs 05/10/22 [Rx Last Taken Unknown] diltiazem HCl 60 mg tablet 60 mg PO Q6 #0 tabs 05/10/22 [Rx Last Taken Unknown] metoprolol tartrate 25 mg tablet 12.5 mg PO BID #0 tabs 05/10/22 [Rx Last Taken Unknown] Allergy/AdvReac Type Severity Reaction Status Date / Time doxycycline Allergy NEEDS Verified 05/15/22 09:04 FOLLOW-UP latex Allergy NEEDS Verified 05/15/22 09:04 FOLLOW-UP Sulfa (Sulfonamide Allergy Anaphylaxis Verified 05/15/22 09:04 Antibiotics) sulfur dioxide Allergy Anaphylaxis Verified 05/15/22 09:04 oxycodone AdvReac Other Verified 05/15/22 09:04 Family History Grandmother Diabetes Mother Heart disease Surgical History H/O right heart catheterization History of cataract surgery History of coronary artery stent placement (02/24/17) History of heart artery stent Tubal ligation status Social History household members: none housing: other details: [facility]. Smoking Status: Former smoker how long ago did patient quit smokin alcohol intake: former year quit: 1999 substance use type: does not use caffeine: Yes Type: carbonated beverages and tea ROS ROS ED Constitutional Constitutional ED: Denies chills or fever(s) Eyes Eyes: Denies blurry vision or change in vision ENT ENT ED: Denies rhinorrhea or sore throat Cardiovascular Cardiovascular: Denies chest pain or palpitations Respiratory/Chest Respiratory/Chest: Reports dyspnea; Denies cough Gastrointestinal Gastrointestinal: Denies nausea or vomiting Genitourinary Genitourinary ED: Denies dysuria or hematuria Musculoskeletal Musculoskeletal: Denies back pain or neck pain Integumentary Denies abscess or rash Neurologic Neurologic: Reports weakness; Denies headache(s) Allergic/Immunologic Allergic/Immunologic ED: Denies mouth swelling or urticaria EXAM Physical Exam Const Vital Signs: 05/15/22 09:04 05/15/22 09:52 05/15/22 11:11 Temperature 96.4 F L Temperature Source Temporal Pulse Rate 113 H 122 H Respiratory Rate 18 28 H Respiratory Effort Normal Blood Pressure 118/70 Blood Pressure Mean 86 Pulse Ox 95 98 Oxygen Delivery Method Nasal Cannula Nasal Cannula Oxygen Flow Rate (L/min) 3 05/15/22 13:00 Temperature Temperature Source Pulse Rate 117 H Respiratory Rate 16 Respiratory Effort Blood Pressure 109/74 Blood Pressure Mean 85 Pulse Ox 97 Oxygen Delivery Method Room Air Oxygen Flow Rate (L/min) Positive well nourished, well developed and obese General Appearance ED: well developed and NAD Nutritional Appearance: obese HEENT Reports moist mucous membranes Neck supple and no JVD Resp normal respiratory effort Auscultation: diminished lung sounds diffuse Cardio Rate: tachycardic Rhythm: abnormal rhythm irregularly irregular GI normal to inspection, nondistended, normoactive bowel sounds and non-tender Extremity General Extremety ED: Yes edema General Extremity: edema Neuro oriented x3, CN's II-XII intact bilaterally and no sensory deficits noted Sensorium / Orientation: alert Psych mental status grossly normal MDM MDM MDM Narrative Medical decision making narrative: Differential diagnosis includes hypoglycemia and encephalopathy. Basic metabolic profile will be obtained to assess for glucose, electrolyte abnormality, and renal function. Patient will continue to be monitored for her blood glucose. Patient had labs and x-rays done yesterday and these do not need to be repeated. Lab Data Lab results narrative: Basic metabolic profile was reviewed. Creatinine was elevated at 1.66 which was slightly increased from yesterday's results. BUN was slightly elevated at 46. Potassium was 6.0. Anion gap was normal. Glucose was 103. Labs: Laboratory Results - last 24 hr 05/15/22 05/15/22 05/15/22 09:50 12:11 15:08 Sodium 144 Potassium 6.0 H* 6.2 H* Chloride 116 H Carbon Dioxide 27.0 Anion Gap 1 L BUN 46 H Creatinine 1.66 H Estim Creat Clear Calc 31.21 Est GFR (MDRD) Af Amer 40 L Est GFR (MDRD) Non-Af 33 L BUN/Creatinine Ratio 27.7 H Glucose 103 Calcium 9.3 POC Glucose 117 H EKG Initial EKG: Attestation: I personally reviewed and interpreted this EKG as follows: Interpretation: Atrial Fibrillation (115) and Non-Specific ST Changes Prior EKG tracings: available for review Prior: Unchanged (05/12/2022) Treatment and Re-Evaluation :: Patient was given a dose of Lasix here. Because of the hyperkalemia, EKG was ordered. On my interpretation it shows atrial fibrillation with a rate of 115. There are no peaked T waves. There are no acute ST or T wave changes. Patient was ordered calcium gluconate, dextrose, and insulin for the hyperkalemia. The Lasix was given along with the calcium gluconate. Her IV then infiltrated and was unable to be used. There is no other IV access available. Patient was given a dose of subcu insulin and oral glucose. The potassium was repeated. It was 6.2. However, there was slight hemolysis. Because of that, the potassium is most likely trending down. Patient remained awake and alert during her entire stay here in the emergency department. Patient was given a regular diet tray. Patient was able to eat. Patient was encouraged to eat at the senior care so that she can continue her insulin which will help her hyperkalemia. Patient will be given a dose of Kayexalate here prior to discharge. Patient was instructed to follow-up with her primary care physician in 3 to 5 days. Patient was instructed return if worse in any way. Patient understood and was agreeable with the plan. All questions were answered. Discharge Plan Triage Chief Complaint: Hypoglycemia ED Provider: Izaiah Hardin Dx/Rx/DC Orders Clinical Impression: Diabetic hypoglycemia, CKD (chronic kidney disease), History of atrial fibrillation, Type 2 diabetes mellitus, Hyperkalemia Instructions: ED Hyperkalemia, ED Hypoglycemia Oral Diabetic ... Prescriptions: No Action aspirin [Adult Aspirin Regimen] 81 mg tablet,delayed release (DR/EC) 81 mg PO DAILY sennosides-docusate sodium [Senna-S] 8.6-50 mg Tablet 1 tab PO BID levothyroxine [Synthroid] 100 mcg tablet 125 mcg PO DAILY trazodone 100 mg tablet 150 mg PO QHS montelukast 10 mg tablet 10 mg PO QHS albuterol sulfate 90 mcg/actuation HFA aerosol inhaler 2 puff INHALATION Q6H PRN (Reason: Shortness Of Breath) omeprazole 40 mg Capsule,Delayed Release(Dr/Ec) 40 mg PO BID polyethylene glycol 3350 17 gram powder in packet 17 g PO DAILY ferrous sulfate [FeroSul] 325 mg (65 mg iron) tablet 325 mg PO DAILY nystatin [Nyamyc] 100,000 unit/gram powder 1 applic topical TID Protocol: *Topical Application Instructions APPLICATION INSTRUCTIONS: apply to groin tid for redness insulin lispro [Humalog KwikPen Insulin] 100 unit/mL insulin pen 10 unit subcut TIDAC paroxetine HCl [Paxil] 20 mg Tablet 20 mg PO DAILY Levemir FlexTouch U-100 Insuln 100 unit/mL (3 mL) insulin pen 25 unit SUBCUT QHS Qty: 15 0RF gabapentin 300 mg capsule 300 mg PO TID mirtazapine 15 mg tablet 15 mg PO QHS acetaminophen [Tylenol] 325 mg tablet 650 mg PO Q6H PRN (Reason: PAIN/FEVER) potassium chloride [Klor-Con M20] 20 mEq tablet,ER particles/crystals 20 meq PO TID Eliquis 5 mg tablet 5 mg PO BID Say (with collagen) 7-7-1.5 gram powder in packet 1 packet PO BID bumetanide 0.5 mg Tablet 1 mg PO TID Qty: 0 0RF diltiazem HCl 60 mg Tablet 60 mg PO Q6 Qty: 0 0RF metoprolol tartrate 25 mg Tablet 12.5 mg PO BID Qty: 0 0RF Primary Care Provider: Geovanna Mott ACCOUNT COORDINATOR Referrals: Geovanna Mott ACCOUNT COORDINATOR, ACCOUNT COORDINATOR-C [Primary Care Provider] - 3-5 Days Disposition Disposition: Detention Facility Discharge Location: [facility]
[2022-05-15 10:18] LABS: Anion Gap 1 (5-15); BUN 46 mg/dL (7-18); BUN/Creat Ratio 27.7 RATIO (10-20); Calcium,Total 9.3 mg/dL (8.5-10.1); Chloride 116 mmol/L (98-107); Creatinine, Serum 1.66 mg/dL (0.55-1.02); EST Glomerular Filtration Rate 33 mL/min (>60); Est Glom Filt Rate - Afr Amer 40 mL/min (>60); Estimated Creatinine Clearance 31.21 ml/min; Glucose 103 mg/dL (74-106); Sodium Level 144 mmol/L (136-145)
--- NOTE | 2022-05-15 10:23 | EKG12_ITS ---
Test Reason : Blood Pressure : / mmHG Vent. Rate : 115 BPM Atrial Rate : 108 BPM P-R Int : 000 ms QRS Dur : 074 ms QT Int : 318 ms P-R-T Axes : 000 103 229 degrees QTc Int : 439 ms Atrial fibrillation Possible Right ventricular hypertrophy Cannot rule out Anteroseptal infarct , age undetermined Abnormal ECG Confirmed by HEYDI ROSS, GODWIN ([id number]), editorial cartoonist JASON PEREIRA ([id number]) on 05/16/2022 8:42:50 AM Referred By: BETH Confirmed By:GODWIN SOLIZ MD
[2022-05-15 11:11] VITALS: PULSE 122; RESP 28; O2SAT 98
--- NOTE | 2022-05-15 11:55 | ED.RN ---
IV ACCESS LOST IN RAC. CHRISTELLE BERNAL AT BEDSIDE UNSUCCESSFUL ATTEMPT FOR IV WITH ULTRASOUND. CHRISTELLE SMITH AT BEDSIDE FOR ATTEMPT FOR IV ACCESS USING ULTRASOUND.
[2022-05-15] MEDS: Furosemide 40 MG/4 ML Vial IV (12:07)
[2022-05-15] MEDS: Calcium Gluconate IV 3 GM in Syringe 1 EACH IV (12:08)
--- NOTE | 2022-05-15 12:20 | ED.RN ---
2 IVS PLACED VIA ULTRASOUND. 22 RIGHT FOREARM AND 20 IN LAC. BOTH IVS INFILTRATED WHEN IV MEDS PUSHED. DR. CAMPOS NOTIFIED.
[2022-05-15 12:35] LABS: Bedside Glucose 117 mg/dL (74-106)
[2022-05-15 13:00] VITALS: BP 109/74; PULSE 117; RESP 16; O2SAT 97
[2022-05-15] MEDS: Insulin Lispro 100 UNIT/ML INSULN.PEN 10 UNIT SC (13:36)
--- NOTE | 2022-05-15 14:47 | ED.RN ---
LAB CALLED TO DRAW PATIENTS BLOOD.
[2022-05-15 15:58] LABS: Potassium 6.2 mmol/L (3.5-5.1)
[2022-05-15 16:30] VITALS: BP 112/78; PULSE 114; RESP 16; O2SAT 100
--- NOTE | 2022-05-15 17:33 | ED.RN ---
THIS RN GAVE REPORT TO SN[facility]
[2022-05-15] MEDS: Sodium Polystyrene Sulfonate 15 GM/60 ML UDC PO (18:15)
[2022-05-15 18:24] VITALS: BP 124/90; PULSE 118; RESP 20; O2SAT 96
== END 2022-05-15 19:48 | disposition skilled nursing facility (03) ==
PROVIDERS: Emergency Provider Emergency Medicine; PCP Nurse Practitioner Adult Health; Visit Provider Emergency Medicine
DX: E10.649 Type 1 diabetes mellitus with hypoglycemia without coma (principal); J44.9 Chronic obstructive pulmonary disease, unspecified; I13.0 Hypertensive heart and chronic kidney disease with heart failure and stage 1 through stage 4 chronic kidney disease, or unspecified chronic kidney disease; I50.32 Chronic diastolic (congestive) heart failure; E10.42 Type 1 diabetes mellitus with diabetic polyneuropathy; E10.22 Type 1 diabetes mellitus with diabetic chronic kidney disease; I48.91 Unspecified atrial fibrillation; Z79.4 Long term (current) use of insulin; N18.32 Chronic kidney disease, stage 3b; E87.5 Hyperkalemia; I25.10 Atherosclerotic heart disease of native coronary artery without angina pectoris; E78.5 Hyperlipidemia, unspecified; E66.9 Obesity, unspecified; Z79.82 Long term (current) use of aspirin; Z79.01 Long term (current) use of anticoagulants; Z79.890 Hormone replacement therapy; Z79.899 Other long term (current) drug therapy; Z87.891 Personal history of nicotine dependence
CPT/HCPCS: 36415; 80048; 82962; 84132; 93005; 96374; 96375; 99285; A4216; J0610; J1940

== ENCOUNTER 2022-05-19 11:05 | Inpatient (IN) | payer MEDICARE, MEDICAID, SELFPAY ==
[2022-05-19] VITALS (23 sets, daily range): BP systolic 73–123; BP diastolic 52–88; PULSE 87–116; RESP 10–20; TEMP 31.3–37.2; O2SAT 94–100; BMI 16.0; BMI 33.6
--- NOTE | 2022-05-19 11:22 | EKG12_ITS ---
Test Reason : HYPOTENSION Blood Pressure : / mmHG Vent. Rate : 104 BPM Atrial Rate : 000 BPM P-R Int : 000 ms QRS Dur : 086 ms QT Int : 300 ms P-R-T Axes : 000 109 -57 degrees QTc Int : 394 ms Atrial fibrillation with rapid ventricular response Possible Right ventricular hypertrophy Cannot rule out Anteroseptal infarct , age undetermined Abnormal ECG Confirmed by HEYDI ROSS, GODWIN ([id number]), commissioning editor JASON PEREIRA ([id number]) on 05/22/2022 2:14:20 PM Referred By: BELLA Confirmed By:GODWIN SOLIZ MD
[2022-05-19 11:59] LABS: ALB/GLOB Ratio 0.5 RATIO (0.9-2.4); AST(SGOT) 7 U/L (15-37); Alanine Aminotransfer ALT/SGPT 7 U/L (13-56); Albumin, Serum 2.1 g/dL (3.2-5.0); Alkaline Phosphatase 142 U/L (45-117); Anion Gap 8 (5-15); BUN 61 mg/dL (7-18); BUN/Creat Ratio 18.3 RATIO (10-20); Calcium,Total 9.4 mg/dL (8.5-10.1); Chloride 111 mmol/L (98-107); Creatinine, Serum 3.33 mg/dL (0.55-1.02); EST Glomerular Filtration Rate 15 mL/min (>60); Est Glom Filt Rate - Afr Amer 18 mL/min (>60); Estimated Creatinine Clearance 11.51 ml/min; Globulin 4.2 g/dL (2.2-4.2); Glucose 238 mg/dL (74-106); Potassium 6.4 mmol/L (3.5-5.1); Protein, Total 6.3 g/dL (6.4-8.2); Sodium Level 144 mmol/L (136-145); Troponin-I HS 17 pg/mL (3.0-54.0)
--- NOTE | 2022-05-19 12:10 | RAD_ITS ---
STUDY: X-RAY CHEST REASON FOR EXAM: Female, 67 years old. Hypotension. Shortness of breath. Edematous changes of the lower extremities. TECHNIQUE: Single AP portable view of the chest. COMPARISON: Comparison is made with prior study dated May 14, 2022. FINDINGS: EKG electrodes are seen. Moderate size right pleural effusion with right basilar infiltration and/or atelectasis. Small left pleural effusion with underlying atelectasis and/or infiltrates. CHF. Normal size heart. Normal mediastinum and sol. Normal visualized pulmonary arteries. Normal visualized aortic arch and descending thoracic aorta. There are diffuse degenerative changes of the visualized thoracic spine. Normal visualized ribs, clavicles, and shoulders. There is no demonstrated abnormality of the visualized soft tissue structures of the upper abdomen. RAD/Chest 1 View (Portable) IMPRESSION: Bilateral pleural effusions right greater than left with bibasilar atelectasis and/or infiltrate superimposed on CHF. Electronically Signed: Butch Ling MD at 13:40 EDT ,
[2022-05-19 12:16] LABS: Bedside Glucose 219 mg/dL (74-106)
--- NOTE | 2022-05-19 12:39 | EDS_ITS ---
HPI History of Present Illness Chief Complaint: Hypotension Informant: EMS and SNF Narrative Narrative: Patient is a 67-year-old female presenting from nursing facility for low blood pressure. Patient's been more short of breath, edematous and has had lower blood pressures. Patient is well-known to our ER and has significant medical history. Patient was seen in our ER as recently as 3 days ago for hyperkalemia was given Kayexalate. Per nursing staff patient's mentation is greatly decreased compared to 3 days ago. Patient has no complaints at this time except in her arm where they are trying to obtain IV access. [facility] Medical History Acute cervical myofascial strain Acute on chronic respiratory failure with hypoxemia Acute respiratory failure with hypoxia Amputated toe of left foot Anemia Anemia Asthma Atherosclerotic heart disease of [place] coronary artery without angina pectoris Atrial fibrillation Atrial fibrillation Atrial fibrillation with rapid ventricular response CAD (coronary artery disease) CHF (congestive heart failure) Chronic congestive heart failure Chronic heart failure with preserved ejection fraction (HFpEF) Chronic heel ulcer Chronic kidney disease (CKD) stage G3b/A1, moderately decreased glomerular filtration rate (GFR) between 30-44 mL/min/1.73 square meter and albuminuria creatinine ratio less than 30 mg/g Chronic respiratory failure with hypoxia Chronic respiratory failure with hypoxia, on home oxygen therapy Chronic ulcer of great toe of left foot Closed head injury Congestive heart failure (CHF) COPD (chronic obstructive pulmonary disease) Current use of insulin Debility Decubitus ulcer of dorsum of foot, stage 2 Decubitus ulcer of left heel, stage 2 Decubitus ulcer of left heel, stage 3 Decubitus ulcer, heel, left, unstageable Depression Diabetes mellitus with diabetic polyneuropathy Diabetes type 2, controlled Diabetic foot ulcers Diverticulitis Dry gangrene Essential hypertension Former smoker History of amputation of left great toe History of non-ST elevation myocardial infarction (NSTEMI) (02/24/17) Hyperlipidemia Hypoglycemia due to type 1 diabetes mellitus Hypothyroid Morbid obesity Multiple wounds Myocardial infarct Non-rheumatic tricuspid valve insufficiency Nondisplaced fracture of distal phalanx of right great toe, initial encounter for closed fracture Nonrheumatic mitral (valve) insufficiency Obesity Obstructive sleep apnea On home O2 Renal insufficiency Secondary pulmonary arterial hypertension Thrombocytopenia Type 2 diabetes mellitus Vitamin D deficiency Home Medications aspirin 81 mg tablet,delayed release (Adult Aspirin Regimen) 81 mg PO DAILY HEART HEALTH 05/17/21 [History Last Taken 04/25/22 08:30] levothyroxine 100 mcg tablet (Synthroid) 125 mcg PO DAILY THYROID 12/13/21 [History Last Taken 04/26/22 06:00] montelukast 10 mg tablet 10 mg PO QHS ALLERGIES 12/13/21 [History Last Taken 04/25/22 20:58] sennosides 8.6 mg-docusate sodium 50 mg tablet (Senna-S) 1 tab PO BID STOOL SOFTNER 12/13/21 [History Last Taken 04/25/22 20:58] trazodone 100 mg tablet 150 mg PO QHS SLEEP 12/13/21 [History Last Taken 04/25/22 20:58] albuterol sulfate 90 mcg/actuation aerosol inhaler 2 puff inhalation Q6H PRN Shortness Of Breath 12/19/21 [History Last Taken Unknown] ferrous sulfate 325 mg (65 mg iron) tablet (FeroSul) 325 mg PO DAILY ANEMIA 12/28/21 [History Last Taken 04/25/22 11:00] insulin lispro 100 unit/mL subcutaneous pen (Humalog KwikPen (U-100) Insulin) 10 unit subcut TIDAC DIABETES 12/28/21 [History Last Taken 04/25/22 20:40] nystatin 100,000 unit/gram topical powder (Nyamyc) 1 applic topical TID IRRITATION 12/28/21 [History Last Taken 04/25/22 20:58] omeprazole 40 mg capsule,delayed release 40 mg PO BID GERD 12/28/21 [History Last Taken 04/25/22 20:58] polyethylene glycol 3350 17 gram oral powder packet 17 g PO DAILY CONSTIPATION 12/28/21 [History Last Taken 04/25/22 08:30] paroxetine HCl 20 mg tablet (Paxil) 20 mg PO DAILY MOOD 01/12/22 [History Last Taken 04/26/22 08:30] insulin detemir U-100 100 unit/mL (3 mL) subcutaneous pen (Levemir FlexTouch U- 100 Insulin) 25 unit (0.25 mL) subcut QHS blood sugar #15 mL 02/24/22 [Rx Last Taken 04/24/22 19:30] acetaminophen 325 mg tablet (Tylenol) 650 mg PO Q6H PRN PAIN/FEVER 04/26/22 [History Last Taken 04/26/22 06:00] apixaban 5 mg tablet (Eliquis) 5 mg PO BID BLOOD THINNER 04/26/22 [History Last Taken 04/26/22 08:30] arginine 7 gram-glutam 7 gram-CaHMB 1.5 dxwq-dpwxv-ar-min oral pwd pkt (Say (with collagen)) 1 packet PO BID WOUND HEALING 04/26/22 [History Last Taken 04/25/22 11:00] gabapentin 300 mg capsule 300 mg PO TID NERVE PAIN 04/26/22 [History Last Taken 04/25/22 13:30] mirtazapine 15 mg tablet 15 mg PO QHS MOOD 04/26/22 [History Last Taken 04/25/22 20:58] potassium chloride 20 mEq tablet,extended release(part/cryst) (Klor-Con M) 20 meq PO TID SUPPLEMENT 04/26/22 [History Last Taken 04/26/22 06:00] bumetanide 0.5 mg tablet 1 mg PO TID #0 tabs 05/10/22 [Rx Last Taken Unknown] diltiazem HCl 60 mg tablet 60 mg PO Q6 #0 tabs 05/10/22 [Rx Last Taken Unknown] metoprolol tartrate 25 mg tablet 12.5 mg PO BID #0 tabs 05/10/22 [Rx Last Taken Unknown] Allergy/AdvReac Type Severity Reaction Status Date / Time doxycycline Allergy NEEDS Verified 05/19/22 11:06 FOLLOW-UP latex Allergy NEEDS Verified 05/19/22 11:06 FOLLOW-UP Sulfa (Sulfonamide Allergy Anaphylaxis Verified 05/19/22 11:06 Antibiotics) sulfur dioxide Allergy Anaphylaxis Verified 05/19/22 11:06 oxycodone AdvReac Other Verified 05/19/22 11:06 Family History Grandmother Diabetes Mother Heart disease Surgical History H/O right heart catheterization History of cataract surgery History of coronary artery stent placement (02/24/17) History of heart artery stent Tubal ligation status Social History household members: none housing: other details: [facility]. Smoking Status: Former smoker how long ago did patient quit smokin alcohol intake: former year quit: 1999 substance use type: does not use caffeine: Yes Type: carbonated beverages and tea ROS ROS ED Review of Systems ROS Unobtainable: due to mental status EXAM Physical Exam Const Vital Signs: 05/19/22 11:07 05/19/22 11:10 05/19/22 11:37 Temperature 98.9 F 98.9 F Temperature Source Oral Temporal Pulse Rate 104 H 100 Respiratory Rate 20 H 15 Blood Pressure 86/66 L 86/66 L Blood Pressure Mean 72 72 Pulse Ox 97 97 94 Oxygen Delivery Method Nasal Cannula Nasal Cannula Nasal Cannula Oxygen Flow Rate (L/min) 4 4 4 Positive obese and unkempt Constitutional Narrative: Somnolent General Appearance ED: unkempt Nutritional Appearance: obese HEENT Reports dry mucous membranes Mouth ED: Yes dry mucous membranes Mouth: dry mucous membranes Eyes PERRL and EOMs intact bilaterally Neck supple Neck Narrative: Positive JVD Chest Wall inspection of chest normal and palpation of chest normal Resp Resp Narrative: Mild tachypnea, diminished breath sounds at the bases Cardio Cardio Narrative: Anasarca throughout Rate: tachycardic Rhythm: abnormal rhythm irregularly irregular GI normal to inspection, nondistended, normoactive bowel sounds Extremity Extremity Narrative: Left AKA, sutures in place, no other deformity General Extremety ED: Yes edema General Extremity: edema Neuro Neuro Narrative: Somnolent, oriented to self only. No focal deficits. Generally weak. Sensorium / Orientation: alert Psych Appearance: unkempt Skin Skin Narrative: Ecchymosis on upper extremities consistent with a recent hospitalization/IV access. No cellulitic changes appreciated. MDM MDM MDM Narrative Medical decision making narrative: Patient evaluated for altered mental status and hypotension at nursing facility. Patient is chronically ill with multiple comorbidities. She was recently seen in our ER twice this week for episodes of hypoglycemia. Patient was found to have mild elevation of potassium on 05/15 (4 days ago) and was treated with Kayexalate and outpatient management. She has issues with fluid overload and was admitted 05/06 to 05/10 for acute on chronic respiratory failure, bilateral pleural effusions and pneumonia. Discharge summary from that visit independently reviewed by myself. Patient is hypotensive in the ER. As she has 1 working peripheral access and is given IV fluids with little improvement. She becomes more hypotensive and central line is emergency placed. Patient is given further fluid resuscitation. Patient is found to have hyperkalemia as well as significant MIKE with a creatinine of 3.33. Patient is not hypoglycemic at this time. Patient is started on fluid resuscitation but will have to have aspirations carefully monitored she does have a significant history of CHF. She will be admitted to the ICU due to hemodynamic instability. Case discussed with the main physician, Dr. Cooper. Lab Data Attestation: I reviewed the patient's lab results. Labs: Laboratory Results - last 24 hr 05/19/22 05/19/22 11:20 11:48 Sodium 144 Potassium 6.4 H* Chloride 111 H Carbon Dioxide 25.0 Anion Gap 8 BUN 61 H Creatinine 3.33 H Estim Creat Clear Calc 11.51 Est GFR (MDRD) Af Amer 18 L Est GFR (MDRD) Non-Af 15 L BUN/Creatinine Ratio 18.3 Glucose 238 H Calcium 9.4 Total Bilirubin 0.20 AST 7 L ALT 7 L Alkaline Phosphatase 142 H Troponin I High Sens 17 Total Protein 6.3 L Albumin 2.1 L Globulin 4.2 Albumin/Globulin Ratio 0.5 L POC Glucose 219 H Radiography Chest X-Ray - ED: 1 View, Cardiomegaly and CHF Diagnostic Testing: Clinical Impression(s) from Imaging Studies Chest X-Ray 05/19/22 12:10 IMPRESSION: Bilateral pleural effusions right greater than left with bibasilar atelectasis and/or infiltrate superimposed on CHF. Electronically Signed: Butch Ling MD at 13:40 EDT , Rhythm Strip Rhythm Strip: A-fib Rate: 104 Ectopy: None EKG Initial EKG: Attestation: I personally reviewed and interpreted this EKG as follows: Interpretation: Atrial Fibrillation Comments: Atrial fibrillation at a rate of 104 bpm Right axis Normal QRS and QTc Nonspecific ST segment changes Prior EKG tracings: available for review Prior: Unchanged Differential Diagnosis Chest pain/SOB: CHF Differential Diagnosis: Clinically appears fluid overloaded with anasarca Differential Diagnosis: Hypovolemia Management Discussion w/another healthcare provider: Hospitalist Procedures Other Procedures Procedure(s): Central line Emergent indication due to hypotension and unable to achieve adequate peripheral access Initially attempted left IJ, attempt terminated as unable to cannulate after dilation. Pressure dressing applied. Switch to right IJ. 1 attempt, patient tolerated well with no immediate complications. Sterile technique used both attempts. Critical Care Time Critical Care Time: Yes Critical care time (excluding procedures): 30-74 minutes (50), Arranging Admissi on or Transfer and Performing Direct Patient Care at Bedside Discharge Plan Triage Chief Complaint: Hypotension ED Provider: Reema Treadwell Dx/Rx/DC Orders Clinical Impression: Acute hypotension, Paroxysmal atrial fibrillation, MIKE (acute kidney injury), Acute hyperkalemia, Toxic metabolic encephalopathy, Anasarca, Thrombocytopenia, Current use of ocean transportation intermediary anticoagulation Prescriptions: No Action aspirin [Adult Aspirin Regimen] 81 mg tablet,delayed release (DR/EC) 81 mg PO DAILY sennosides-docusate sodium [Senna-S] 8.6-50 mg Tablet 1 tab PO BID levothyroxine [Synthroid] 100 mcg tablet 125 mcg PO DAILY trazodone 100 mg tablet 150 mg PO QHS montelukast 10 mg tablet 10 mg PO QHS albuterol sulfate 90 mcg/actuation HFA aerosol inhaler 2 puff INHALATION Q6H PRN (Reason: Shortness Of Breath) omeprazole 40 mg Capsule,Delayed Release(Dr/Ec) 40 mg PO BID polyethylene glycol 3350 17 gram powder in packet 17 g PO DAILY ferrous sulfate [FeroSul] 325 mg (65 mg iron) tablet 325 mg PO DAILY nystatin [Nyamyc] 100,000 unit/gram powder 1 applic topical TID Protocol: *Topical Application Instructions APPLICATION INSTRUCTIONS: apply to groin tid for redness insulin lispro [Humalog KwikPen Insulin] 100 unit/mL insulin pen 10 unit subcut TIDAC paroxetine HCl [Paxil] 20 mg Tablet 20 mg PO DAILY Levemir FlexTouch U-100 Insuln 100 unit/mL (3 mL) insulin pen 25 unit SUBCUT QHS Qty: 15 0RF gabapentin 300 mg capsule 300 mg PO TID mirtazapine 15 mg tablet 15 mg PO QHS acetaminophen [Tylenol] 325 mg tablet 650 mg PO Q6H PRN (Reason: PAIN/FEVER) potassium chloride [Klor-Con M20] 20 mEq tablet,ER particles/crystals 20 meq PO TID Eliquis 5 mg tablet 5 mg PO BID Say (with collagen) 7-7-1.5 gram powder in packet 1 packet PO BID bumetanide 0.5 mg Tablet 1 mg PO TID Qty: 0 0RF diltiazem HCl 60 mg Tablet 60 mg PO Q6 Qty: 0 0RF metoprolol tartrate 25 mg Tablet 12.5 mg PO BID Qty: 0 0RF Primary Care Provider: eGovanna Mott PACKAGING DESIGNER Referrals: Geovanna oMtt PACKAGING DESIGNER, PACKAGING DESIGNER-C [Primary Care Provider] - Disposition Disposition: Acute Care Hospital [facility]
--- NOTE | 2022-05-19 13:50 | RAD_ITS ---
STUDY: X-RAY CHEST REASON FOR EXAM: Female, 67 years old. LINE PLACEMENT TECHNIQUE: Single AP portable view of the chest. COMPARISON: Comparison is made with prior study done earlier today. FINDINGS: A right-sided central venous catheter has been placed with the tip in the proximal portion of the superior vena cava. The remainder of the examination is unchanged. RAD/Chest 1 View (Portable) IMPRESSION: The tip of the right central line is in the proximal portion of the superior vena cava. The remainder of the examination is unchanged. Electronically Signed: Butch Ling MD at 14:29 EDT ,
[2022-05-19 14:01] LABS: Absolute Lymphocyte Count 0.71 X10^3/uL (0.83-4.51); Absolute Neutrophil Count 7.3 X10^3/uL (2.0-7.7); Basophil# 0.01 X10^3/uL; Basophil% 0.1 % (0-1); Eosinophil# 0.02 X10^3/uL; Eosinophils% 0.2 % (0-5); Hemoglobin 8.1 g/dL (12.0-15.0); Lymphocyte # 0.71 X10^3/ul (0.83-4.51); Lymphocyte % 8.5 % (19-41); Mean Corp Hgb Conc 27.9 g/dL (32-36); Mean Corpuscular Hgb 30.9 pg (27.0-32.0); Mean Corpuscular Volume 110.7 fL (81-99); Mean Platelet Vol. 11.9 fl (6.2-12.0); Monocyte# 0.28 X10^3/uL; Monocyte% 3.3 % (0-10); NRBC Flagged by Analyzer 0 % (0-5); Neutrophil # 7.31 X10^3/uL (2.7-7.7); Neutrophil % 87.3 % (47-70); POSITIVE MORPHOLOGY YES; Platelet Count 101 K/mm3 (150-450); RBC Distribution Width CV 18.3 % (11.6-14.6); RBC Distribution Width SD 75.1 fl (35.1-43.9); Red Blood Count 2.62 M/mm3 (4.2-5.4); White Blood Count 8.4 K/mm3 (4.4-11.0)
[2022-05-19 14:02] LABS: Differential Indicated SCAN CRITERIA MET
[2022-05-19] MEDS: 0.9% Normal Saline 1,000 ML 999 ML IV (14:03)
[2022-05-19 14:09] LABS: International Normalized Ratio 1.5; Prothrombin Time (Protime)PT. 17.8 SECONDS (11.7-14.9)
[2022-05-19 14:10] LABS: Partial Thromboplast Time 32.2 Seconds (24.1-36.2)
[2022-05-19] MEDS: Insulin Lispro 10 UNIT in Syringe 0 ML 6 UNIT IV (14:12)
[2022-05-19] MEDS: Calcium Gluconate IV 3 GM in Syringe 1 EACH IV (14:13)
[2022-05-19] MEDS: Dextrose 50%-Water 25 GM/50 ML DISP.SYRIN IV (14:18)
[2022-05-19 14:23] LABS: Lactic Acid 0.6 mmol/L (0.4-1.9)
[2022-05-19 14:35] LABS: Anisocytosis 1+
--- NOTE | 2022-05-19 14:43 | HP.PCM.HOS_ITS ---
HPI - General General Date of Admission: 05/19/22 HPI Narrative SONA WILSON, is a 67 F who presents to hospital from SNF with shortness of breath and severe hypotension. She is able to tell me that she is in the hospital but she does seem drowsy. She was found to have a blood pressure systolic in the 60s a central line was placed by the ED physician. Lab Dacadis acute renal failure with hyperkalemia her creatinine is at 3.33 and she is on 4 L nasal cannula, which appears to be a little bit higher than her baseline of around 2 to 3 L nasal cannula. Chest x-ray demonstrates bilateral pleural effusions with possible infiltrate she is hypothermic but does not have a leukocytosis. She has been admitted to the hospital 3 times in the last 3 months and she is presented to the ER 4 times in the last 10 days. [facility]LY [facility] Medical History (Updated 05/19/22 @ 15:[address] Lalo Cooper MD) Acute cervical myofascial strain Acute on chronic respiratory failure with hypoxemia Acute respiratory failure with hypoxia Amputated toe of left foot Anemia Anemia Asthma Atherosclerotic heart disease of [place] coronary artery without angina pectoris Atrial fibrillation Atrial fibrillation Atrial fibrillation with rapid ventricular response CAD (coronary artery disease) CHF (congestive heart failure) Chronic congestive heart failure Chronic heart failure with preserved ejection fraction (HFpEF) Chronic heel ulcer Chronic kidney disease (CKD) stage G3b/A1, moderately decreased glomerular filtration rate (GFR) between 30-44 mL/min/1.73 square meter and albuminuria creatinine ratio less than 30 mg/g Chronic respiratory failure with hypoxia Chronic respiratory failure with hypoxia, on home oxygen therapy Chronic ulcer of great toe of left foot Closed head injury Congestive heart failure (CHF) COPD (chronic obstructive pulmonary disease) Current use of insulin Debility Decubitus ulcer of dorsum of foot, stage 2 Decubitus ulcer of left heel, stage 2 Decubitus ulcer of left heel, stage 3 Decubitus ulcer, heel, left, unstageable Depression Diabetes mellitus with diabetic polyneuropathy Diabetes type 2, controlled Diabetic foot ulcers Diverticulitis Dry gangrene Essential hypertension Former smoker History of amputation of left great toe History of non-ST elevation myocardial infarction (NSTEMI) (02/24/17) Hyperlipidemia Hypoglycemia due to type 1 diabetes mellitus Hypothyroid Morbid obesity Multiple wounds Myocardial infarct Non-rheumatic tricuspid valve insufficiency Nondisplaced fracture of distal phalanx of right great toe, initial encounter for closed fracture Nonrheumatic mitral (valve) insufficiency Obesity Obstructive sleep apnea On home O2 Renal insufficiency Secondary pulmonary arterial hypertension Thrombocytopenia Type 2 diabetes mellitus Vitamin D deficiency Home Medications aspirin 81 mg tablet,delayed release (Adult Aspirin Regimen) 81 mg PO DAILY HEART HEALTH 05/17/21 [History Last Taken 04/25/22 08:30] levothyroxine 100 mcg tablet (Synthroid) 125 mcg PO DAILY THYROID 12/13/21 [History Last Taken 04/26/22 06:00] montelukast 10 mg tablet 10 mg PO QHS ALLERGIES 12/13/21 [History Last Taken 04/25/22 20:58] sennosides 8.6 mg-docusate sodium 50 mg tablet (Senna-S) 1 tab PO BID STOOL SOFTNER 12/13/21 [History Last Taken 04/25/22 20:58] trazodone 100 mg tablet 150 mg PO QHS SLEEP 12/13/21 [History Last Taken 04/25/22 20:58] albuterol sulfate 90 mcg/actuation aerosol inhaler 2 puff inhalation Q6H PRN Shortness Of Breath 12/19/21 [History Last Taken Unknown] ferrous sulfate 325 mg (65 mg iron) tablet (FeroSul) 325 mg PO DAILY ANEMIA 04/19 [History Last Taken 04/25/22 11:00] insulin lispro 100 unit/mL subcutaneous pen (Humalog KwikPen (U-100) Insulin) 10 unit subcut TIDAC DIABETES 12/28/21 [History Last Taken 04/25/22 20:40] nystatin 100,000 unit/gram topical powder (Nyamyc) 1 applic topical TID IRRITATION 12/28/21 [History Last Taken 04/25/22 20:58] omeprazole 40 mg capsule,delayed release 40 mg PO BID GERD 12/28/21 [History L ast Taken 04/25/22 20:58] polyethylene glycol 3350 17 gram oral powder packet 17 g PO DAILY CONSTIPATION 12/28/21 [History Last Taken 04/25/22 08:30] paroxetine HCl 20 mg tablet (Paxil) 20 mg PO DAILY MOOD 01/12/22 [History Last Taken 04/26/22 08:30] insulin detemir U-100 100 unit/mL (3 mL) subcutaneous pen (Levemir FlexTouch U- 100 Insulin) 25 unit (0.25 mL) subcut QHS blood sugar #15 mL 02/24/22 [Rx Last Taken 04/24/22 19:30] acetaminophen 325 mg tablet (Tylenol) 650 mg PO Q6H PRN PAIN/FEVER 04/26/22 [History Last Taken 04/26/22 06:00] apixaban 5 mg tablet (Eliquis) 5 mg PO BID BLOOD THINNER 04/26/22 [History Last Taken 04/26/22 08:30] arginine 7 gram-glutam 7 gram-CaHMB 1.5 pemq-pmolh-hg-min oral pwd pkt (Say (with collagen)) 1 packet PO BID WOUND HEALING 04/26/22 [History Last Taken 0 04/25/22 11:00] gabapentin 300 mg capsule 300 mg PO TID NERVE PAIN 04/26/22 [History Last Taken 04/25/22 13:30] mirtazapine 15 mg tablet 15 mg PO QHS MOOD 04/26/22 [History Last Taken 04/25/22 20:58] potassium chloride 20 mEq tablet,extended release(part/cryst) (Klor-Con M) 20 meq PO TID SUPPLEMENT 04/26/22 [History Last Taken 04/26/22 06:00] bumetanide 0.5 mg tablet 1 mg PO TID #0 tabs 05/10/22 [Rx Last Taken Unknown] diltiazem HCl 60 mg tablet 60 mg PO Q6 #0 tabs 05/10/22 [Rx Last Taken Unknown] metoprolol tartrate 25 mg tablet 12.5 mg PO BID #0 tabs 05/10/22 [Rx Last Taken Unknown] Allergy/AdvReac Type Severity Reaction Status Date / Time doxycycline Allergy NEEDS Verified 05/19/22 11:06 FOLLOW-UP latex Allergy NEEDS Verified 05/19/22 11:06 FOLLOW-UP Sulfa (Sulfonamide Allergy Anaphylaxis Verified 05/19/22 11:06 Antibiotics) sulfur dioxide Allergy Anaphylaxis Verified 05/19/22 11:06 oxycodone AdvReac Other Verified 05/19/22 11:06 Family History Grandmother Diabetes Mother Heart disease Surgical History H/O right heart catheterization History of cataract surgery History of coronary artery stent placement (02/24/17) History of heart artery stent Tubal ligation status Social History household members: none housing: other details: [facility]. Smoking Status: Former smoker how long ago did patient quit smokin alcohol intake: former year quit: 1999 substance use type: does not use caffeine: Yes Type: carbonated beverages and tea ROS Constitutional Constitutional: Reports weakness; Denies chills, fatigue, fever(s) or malaise Eyes Eyes: Denies blurry vision ENT HEENT: Denies headache(s) or nasal discharge Cardiovascular Cardiovascular: Reports edema; Denies chest pain, dyspnea on exertion or syncope Respiratory/Chest Respiratory/Chest: Reports shortness of breath at rest; Denies cough or shortness of breath with exertion Gastrointestinal Gastrointestinal: Denies constipation, diarrhea, nausea or vomiting Genitourinary Genitourinary: Denies dysuria Neurologic Neurologic: Denies focal weakness, numbness or tremor(s) Psychiatric Psychiatric: Denies anxiety or depression Vital Signs Vital Signs Vital Signs: 05/19/22 11:07 05/19/22 11:10 05/19/22 11:37 Temperature 98.9 F 98.9 F Temperature Source Oral Temporal Pulse Rate 104 H 100 Respiratory Rate 20 H 15 Blood Pressure 86/66 L 86/66 L Blood Pressure Mean 72 72 Pulse Ox 97 97 94 Oxygen Delivery Method Nasal Cannula Nasal Cannula Nasal Cannula Oxygen Flow Rate (L/min) 4 4 4 05/19/22 14:21 05/19/22 14:26 Temperature 95.8 F L Temperature Source Temporal Pulse Rate 103 H 103 H Respiratory Rate 20 H 20 H Blood Pressure 100/88 H 100/88 H Blood Pressure Mean 92 92 Pulse Ox 96 96 Oxygen Delivery Method Nasal Cannula Nasal Cannula Oxygen Flow Rate (L/min) 4 4 Weight Weight: 96 lb 11.2 oz Body Mass Index (BMI) 16.0 Physical Exam Narrative General: Alert but drowsy, Oriented x2, Cooperative, No apparent distress HEENT: Atraumatic, PERRLA, EOMI, Normocephalic Oral: Dry mucosa Neck: Supple, No JVD Lungs: Diminished, Normal air movement, No rhonchi, No wheeze, No rales, tachypneic Cardiovascular: Tachycardic, Regular Rhythm, Normal S1, Normal S2, No murmurs Abdomen: Soft, Non Tender, Non-Distended, No Hepato-splenomegaly Extremities: Edema, Capillary Refill Less than 3 Seconds Skin: No rashes, No breakdown Musculoskeletal: Left AKA Neurological: Can move her extremities, sensation intact Psych/Mental Status: Flat affect, Appropriate Results Lab / Micro Data Result Diagrams: 05/19/22 13:45 05/19/22 11:20 Labs: Laboratory Results - last 24 hr 05/19/22 11:20: Sodium 144, Potassium 6.4 H*, Chloride 111 H, Carbon Dioxide 25.0, Anion Gap 8, BUN 61 H, Creatinine 3.33 H, Estim Creat Clear Calc 11.51, Est GFR (MDRD) Af Amer 18 L, Est GFR (MDRD) Non-Af 15 L, BUN/Creatinine Ratio 18.3, Glucose 238 H, Calcium 9.4, Total Bilirubin 0.20, AST 7 L, ALT 7 L, Alkaline Phosphatase 142 H, Troponin I High Sens 17, Total Protein 6.3 L, Albumin 2.1 L, Globulin 4.2, Albumin/Globulin Ratio 0.5 L 05/19/22 11:48: POC Glucose 219 H 05/19/22 13:45: WBC 8.4, RBC 2.62 L, Hgb 8.1 L, Hct 29.0 L, MCV 110.7 H, MCH 30 .9, MCHC 27.9 L, RDW Std Deviation 75.1 H, RDW Coeff of Magen 18.3 H, Plt Count 101 L, MPV 11.9, Immature Gran % (Auto) 0.600, Neut % (Auto) 87.3 H, Lymph % (Auto) 8.5 L, [place] % (Auto) 3.3, Eos % (Auto) 0.2, Baso % (Auto) 0.1, Absolute Neuts (auto) 7.3, Absolute Lymphs (auto) 0.71 L, Nucleated RBC % 0, Anisocytosis 1+ 05/19/22 13:45: PT 17.8 H, INR 1.5, APTT 32.2 05/19/22 13:45: Lactic Acid 0.6 Rhythm Strip Rhythm Strip: A-fib Rate: 104 Ectopy: None Radiology Impression Chest X-Ray 05/19/22 12:10 IMPRESSION: Bilateral pleural effusions right greater than left with bibasilar atelectasis and/or infiltrate superimposed on CHF. Electronically Signed: Butch Ling MD at 13:40 EDT , Chest X-Ray 05/19/22 13:50 IMPRESSION: The tip of the right central line is in the proximal portion of the superior vena cava. The remainder of the examination is unchanged. Electronically Signed: Butch Ling MD at 14:29 EDT , Assessment & Plan Assessment/Plan (1) Pneumonia: (2) Acute on chronic respiratory failure with hypoxemia: (3) Severe sepsis: PLAN: Plan 1. Severe sepsis due to pneumonia with acute on chronic hypoxia/acute renal failure with hyperkalemia/metabolic encephalopathy ? Unclear whether or not the majority of her difficulty is due to the pneumonia or overdiuresis with renal failure ? She does not have a leukocytosis however she is tachycardic and was hypothermic meeting SIRS criteria she does have a pulmonary infiltrate on chest x-ray and given her systolics less than 90 meets severe sepsis criteria ? Continue with vancomycin and Zosyn ? Obtain blood cultures and urine cultures as well as a sputum culture ? We will obtain urine studies to obtain a FENa ? If there is no significant improvement in her renal function by tomorrow would recommend consulting nephrology for possible CRRT given that she is also hyperkalemic. The hyperkalemia was treated in the ER, will monitor ? She is significantly edematous but also has depleted intravascular physiology, albumin is 2.1 ? Of note she did have a gram-negative marita bacteremia on her recent admission, she was also requiring 2 L nasal cannula at that time and she is currently on 4 L nasal cannula ? We will hold her diuretic and continue with aggressive fluid hydration if she does not respond to fluid resuscitation she will likely need pressor support and would meet septic shock criteria ? We will admit to the ICU ? She does know the year and who she is but she does not know where she is ? Acute on chronic thrombocytopenia platelets today are down to 101 we will also continue to monitor her hemoglobin as she does have a history of macrocytic anemia 2. HTN/HLD/A-fib/CAD status post stents/chronic diastolic CHF with pulmonary hypertension ? It appears that she was potentially over diuresed at the longterm, her son relates that she was not eating or drinking very well and she agrees she does appear very dry and she was likely continued on her Bumex ? We will hold her diuretic given her renal failure, will also hold her Cardizem and her metoprolol secondary to her hypotension ? Also currently hold her Eliquis 3. IDDM 2 with peripheral neuropathy/CKD 3B/morbid obesity ? Her BMI is 37 ? We will hold her home insulin and placed on a sliding scale insulin with Accu- Cheks ? We will monitor and make adjustments as necessary 4. GERD ? Stable ? Continue with PPI 5. Anxiety/depression ? Stable ? Continue with Paxil, mirtazapine 6. Hypothyroidism ? Stable ? Continue with Synthroid DVT: SCD's 30-minute advance care planning discussion with both her and her's power of insurance attorney which is her son about her prognosis with a focus on transitioning to potential hospice care. He will like to come in and see her and talk with her and come to a decision at that time Sepsis Attestation Sepsis Attestation: Agree w/Sepsis Date exam was performed: 05/19/22 Time exam was performed: 13:45 Possible Source of Sepsis: Pulmonary Sepsis Organ Dysfunction Criteria Present: SBP < 90 mmHg or MAP < 65 mmHg and Creatinine > 2.0 mg/dL Charges/Coding Visit Charges Inpatient E&M: 57924 Init Hosp L3 Procedures Hospitalists Procedures: 78223 Advncd Care Plan 30 Min
[2022-05-19] MEDS: 0.9% Normal Saline 1,000 ML 150 ML IV (15:07)
--- NOTE | 2022-05-19 15:30 | ED.RN ---
1530 Report called to Lilian BOURGEOIS on ICU.
--- NOTE | 2022-05-19 16:26 | PCM.RX.CS ---
Consult Pharmacy has been consulted to manage selected antiobiotic: Vancomycin Type of Consult: New start Suspected Infection: Pneumonia Labs: Sodium 144 mmol/L (136-145) 05/19/22 11:20 Potassium 6.4 mmol/L (3.5-5.1) H* 05/19/22 11:20 Chloride 111 mmol/L (98-107) H 05/19/22 11:20 Carbon Dioxide 25.0 mmol/L (21.0-32.0) 05/19/22 11:20 Anion Gap 8 (5-15) 05/19/22 11:20 BUN 61 mg/dL (7-18) H 05/19/22 11:20 Creatinine 3.33 mg/dL (0.55-1.02) H 05/19/22 11:20 Est GFR (MDRD) Af Amer 18 mL/min (>60) L 05/19/22 11:20 Est GFR (MDRD) Non-Af 15 mL/min (>60) L 05/19/22 11:20 BUN/Creatinine Ratio 18.3 RATIO (10-20) 05/19/22 11:20 Glucose 238 mg/dL (74-106) H 05/19/22 11:20 Pharmacy Plan for Drug Dosing: NEW START IV VANCOMYCIN Consulting Physician: MARC Indication: SEPSIS/PNEUMONIA Goal Trough: 15-20 MG/DL SrCr: 3.33 (MG/DL) CrCl: 18.6 ML/MIN USING ADJUSTED BODY WEIGHT OF 70.8 KG Comments: LOADING DOSE OF 2000MG GIVEN 05/19 Vancomycin Dose: DUE TO CRCL <20 ML/MIN, WILL GIVE A ONE TIME LOADING DOSE TONIGHT AND GET A RANDOM LEVEL IN 24-48 HOURS PER POLICY Pending Level: 05/21/22 @ 0600 - RANDOM Pharmacy Service will continue to monitor and adjust dosing as required.
[2022-05-19] MEDS: Insulin Lispro 100 UNIT/ML INSULN.PEN SC (17:29)
[2022-05-19] MEDS: 0.9% Normal Saline 1,000 ML 100 ML IV (17:33)
[2022-05-19 17:45] LABS: Bedside Glucose 259 mg/dL (74-106)
--- NOTE | 2022-05-19 20:25 | PCM.PN.BLA ---
Progress Note After my initial evaluation and discussion over the phone with her son who is her POA, all 3 of her children arrived to her hospital room and I had another 60-minute discussion on advance care planning in terms of prognosis as well as possibility and appropriateness of hospice care. Family was not ready to make the decision for hospice at this time, stated to my admission note, the patient did state that she felt like she was ready but then when her kids were at bedside she reversed course and said that she did not want to give up. I discussed with her family the appropriateness of a DNR CCA order however the POA after intense discussion on the differences of the different CODE STATUS is, felt that he should research those differences on his own to come to an appropriate decision. I discussed with him given the tenuous situation that she is currently in that I request that he call us this evening with that decision so we can update her CODE STATUS as quickly as possible, I do anticipate that she will need to start pressor support overnight. Procedures Hospitalists Procedures: 30674 Advncd Care Plan addl 30 Min
--- NOTE | 2022-05-19 21:23 | CPS ---
critical abg values, Dr. mahan aware
[2022-05-19 21:26] LABS: Allen Test Positive; Base Excess -7 mmol/L (-2 to +2); Bicarbonate 24.5 mmol/L (22-26); Blood Gas Specimen Type ART; FI02 100; O2 Delivery Device NRB; PO2 107 mmHG (75-100); SITE R Brach; SO2 94 % (95-99); Total Carbon Dioxide 27 mmol/L; pCO2 96.8 mmHg (35-45); pH 7.01 (7.35-7.45)
[2022-05-19 21:51] LABS: Anion Gap 4 (5-15); BUN 61 mg/dL (7-18); BUN/Creat Ratio 18.3 RATIO (10-20); Calcium,Total 9.5 mg/dL (8.5-10.1); Chloride 110 mmol/L (98-107); Creatinine, Serum 3.33 mg/dL (0.55-1.02); EST Glomerular Filtration Rate 15 mL/min (>60); Est Glom Filt Rate - Afr Amer 18 mL/min (>60); Estimated Creatinine Clearance 14.35 ml/min; Glucose 274 mg/dL (74-106); Potassium 5.6 mmol/L (3.5-5.1); Sodium Level 140 mmol/L (136-145)
--- NOTE | 2022-05-19 21:54 | PCM.HOSP.N ---
Hospitalist Note Intubation Note: Patient with evidence of respiratory and/or impending distress with notable derangements metabolically. Will administer additional bicarb amps with plan repeat ABG 1 hour following intubation. Also patient currently with central line with continued MAP less than 65 despite IV fluid administration, norepinephrine will be started. Medications administered: Versed 4 mg, etomidate 20 mg ETT size: 7.5 Patient intubated in standard fashion with kaleidoscope with visualization of the vocal cords and passage of the ETT. Positioning verified with color change and auscultation. Post-intubation CXR requested. Vent initiation order set placed and restraint order signed. Procedures Hospitalists Procedures: 37215 Insert Emergency Airway
--- NOTE | 2022-05-19 22:25 | RAD_ITS ---
INDICATION: Confirm OG placement -- Prior to admin of any med,fluid,flush,enteral feed EXAMINATION/TECHNIQUE: X-RAY - XR Abdomen 1 View COMPARISON: None RAD/Abdomen Single View (Portable) IMPRESSION: OG tube terminates over the gastric body with side hole below the diaphragm. Partially visualized bowel gas pattern is nonobstructive. Electronically Signed: Froy Rousseau MD at 22:43 EDT ,
--- NOTE | 2022-05-19 22:25 | RAD_ITS ---
INDICATION: To confirm ET placement -- Call wet read to EXAMINATION/TECHNIQUE: X-RAY - XR Chest 1 View COMPARISON: 9 hours earlier RAD/Chest 1 View (Portable) IMPRESSION: Endotracheal tube terminates 4 cm above the ousmane. Decreased right pleural effusion. Right IJ central catheter and enteric tube remain. Electronically Signed: Froy Rousseau MD at 22:44 EDT ,
[2022-05-19 23:46] LABS: Bedside Glucose 198 mg/dL (74-106)
[2022-05-19] MEDS: Sodium Polystyrene Sulfonate 15 GM/60 ML UDC 30 GM PO (23:57)
[2022-05-19] MEDS: Chlorhexidine 15 ML PO (23:59)
[2022-05-19] MEDS: Sodium Bicarbonate 8.4% 50 ML Syringe 50 MEQ IV ×2 (23:59)
[2022-05-20] VITALS (49 sets, daily range): BP systolic 85–132; BP diastolic 42–93; PULSE 85–133; RESP 5–23; TEMP 31.7–37.7; O2SAT 87–100; BMI 34.9
[2022-05-20] MEDS: Propofol 10MG/Ml 1,000 MG/100 ML Bottle 5.5 MG CONT INF ×3 (00:03→21:42)
[2022-05-20 00:06] LABS: Allen Test Positive; Base Excess -3 mmol/L (-2 to +2); Bicarbonate 24.9 mmol/L (22-26); Blood Gas Specimen Type ART; FI02 50; Mode BiLevel; O2 Delivery Device ET Tube; PEEP 5; PO2 35 mmHG (75-100); RR 14; SITE R Brach; SO2 54 % (95-99); Total Carbon Dioxide 27 mmol/L; Vt 450; pCO2 63.4 mmHg (35-45)
[2022-05-20] MEDS: Albuterol 2.5 MG/3 ML VIAL.NEB. INHALATION (00:10)
[2022-05-20] MEDS: Insulin Lispro 100 UNIT/ML INSULN.PEN SC ×3 (00:13→11:14)
--- NOTE | 2022-05-20 00:46 | CPS ---
CRITICAL ABG VALUES, DR COSME AWARE.
--- NOTE | 2022-05-20 00:59 | NURSING ---
called patient's son Chava at 2100 about code status. He decided to keep Monique a full code.
--- NOTE | 2022-05-20 01:08 | NURSING ---
2204 Dr. Rodriguez at bedside to assess patient. Decision made to intubate. Etomidate 20 mg given at 2207 Versed 4 mg given at 2208 Intubated at 2209, 7.5 mm ETT, 23 cm at the lip, positive color change with bilateral breath sounds. OG placed. Chest XR order placed for verification.
[2022-05-20] MEDS: Ipratropium/Albuterol Sulfate 3 ML AMPUL.NEB INHALATION ×4 (03:29→18:51)
[2022-05-20 04:02] LABS: Absolute Lymphocyte Count 0.89 X10^3/uL (0.83-4.51); Absolute Neutrophil Count 8.1 X10^3/uL (2.0-7.7); Basophil# 0.01 X10^3/uL; Basophil% 0.1 % (0-1); Eosinophil# 0.01 X10^3/uL; Eosinophils% 0.1 % (0-5); Hematocrit 26.8 % (37-47); Hemoglobin 7.6 g/dL (12.0-15.0); Lymphocyte # 0.89 X10^3/ul (0.83-4.51); Lymphocyte % 9.4 % (19-41); Mean Corp Hgb Conc 28.4 g/dL (32-36); Mean Corpuscular Hgb 30.3 pg (27.0-32.0); Mean Corpuscular Volume 106.8 fL (81-99); Mean Platelet Vol. 11.3 fl (6.2-12.0); Monocyte# 0.29 X10^3/uL; Monocyte% 3.1 % (0-10); NRBC Flagged by Analyzer 0 % (0-5); Neutrophil # 8.14 X10^3/uL (2.7-7.7); Neutrophil % 86.2 % (47-70); POSITIVE MORPHOLOGY YES; Platelet Count 104 K/mm3 (150-450); RBC Distribution Width CV 18.1 % (11.6-14.6); RBC Distribution Width SD 71.6 fl (35.1-43.9); Red Blood Count 2.51 M/mm3 (4.2-5.4); White Blood Count 9.4 K/mm3 (4.4-11.0)
[2022-05-20 04:18] LABS: ALB/GLOB Ratio 0.5 RATIO (0.9-2.4); AST(SGOT) 7 U/L (15-37); Alanine Aminotransfer ALT/SGPT < 6 U/L (13-56); Albumin, Serum 1.9 g/dL (3.2-5.0); Alkaline Phosphatase 126 U/L (45-117); Anion Gap 6 (5-15); BUN 57 mg/dL (7-18); BUN/Creat Ratio 17.8 RATIO (10-20); Calcium,Total 8.9 mg/dL (8.5-10.1); Chloride 114 mmol/L (98-107); EST Glomerular Filtration Rate 15 mL/min (>60); Est Glom Filt Rate - Afr Amer 19 mL/min (>60); Estimated Creatinine Clearance 14.93 ml/min; Globulin 3.5 g/dL (2.2-4.2); Glucose 267 mg/dL (74-106); Potassium 5.1 mmol/L (3.5-5.1); Protein, Total 5.4 g/dL (6.4-8.2); Sodium Level 145 mmol/L (136-145)
[2022-05-20 04:22] LABS: Platelet Estimate MOD DEC (ADEQ)
[2022-05-20 04:24] LABS: Differential Indicated SCAN CRITERIA MET
[2022-05-20 04:27] LABS: CPK Total, Creatine Kinase 19 U/L (26-192); Triglycerides 95 mg/dL
[2022-05-20 05:00] LABS: Urine Chloride 51 mmol/L (Not Establ.); Urine Sodium 33 mmol/L (Not Establ.)
[2022-05-20] MEDS: Levothyroxine 125 MCG Tablet PO (05:38)
[2022-05-20 06:01] LABS: Bedside Glucose 239 mg/dL (74-106)
--- NOTE | 2022-05-20 06:14 | EX.PCM.CONCC ---
Assessment & Plan Assessment/Plan (1) Septic shock: PLAN: Plan RECOMMENDATIONS: 1. Continue assist-control mode mechanical ventilation. Wean FiO2 and PEEP to maintain saturations at or above 90%. 2. Continue empiric broad-spectrum antimicrobials. 3. Check BNP and procalcitonin. 4. Stop continuous IV fluids. 5. Obtain follow-up arterial blood gas this morning. 6. Send type and screen. 7. Continue Levophed to maintain a mean arterial pressure at or above 65 mmHg. 8. Continue appropriate ICU prophylaxis. 9. Ongoing goals of care discussion with the patient's family. IMPRESSIONS: 1. Septic shock The patient presented with sepsis of unclear etiology with acute sepsis related organ dysfunction as evidenced by decompensated respiratory failure requiring intubation and invasive mechanical ventilatory support along with acute kidney injury. The patient ultimately required the initiation of vasopressor support to maintain hemodynamic stability. Given her history of RV dysfunction and pulmonary hypertension, recommend discontinuation of continuous IV fluids. Continue Levophed to maintain a mean arterial pressure at or above 65 mmHg. Continue empiric broad-spectrum antimicrobials, while awaiting infectious work-up. 2. Encephalopathy Most likely related to acute CO2 retention. It is unclear as to whether the patient had access to a BiPAP at her nursing facility and whether or not it was being utilized. 3. Acute on chronic combined respiratory failure While underlying pneumonia is a possibility, the patient's chest imaging seems far more concerning for decompensated heart failure with evidence of pleural effusions. However, her current utilization of vasopressor support will preclude the use of diuretics at this time. Nevertheless, I would recommend a continuous IV fluids to be discontinued. We will plan to check a BNP and procalcitonin. In the interim, the patient will be maintained on empiric antibiotics. Plan to continue scheduled bronchodilators over concerns for underlying obstructive lung disease. 4. Acute on chronic kidney disease Most likely prerenal in etiology in the setting of #1. Creatinine is stable at this time. Hyperkalemia has resolved. We will plan to continue to monitor urine output for now. No current indication for renal replacement therapy. 5. 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 Recommend sending type and screen today. Continue to monitor H&H daily. Transfuse if hemoglobin drops below 7 g/dL. Continue PPI therapy as ordered. TIME: 37 minutes of critical care time, independent of procedures, was spent addressing the patient septic shock, encephalopathy, acute on chronic combined respiratory failure, acute on chronic kidney disease, review of all data and collaboration with the care team. HPI Consult Data Date of Consult: 05/21/22 HPI Narrative Reason for Consultation: Respiratory failure HPI Narrative: The patient is a 67-year-old female, with a history as outlined below, who presented to the emergency department via EMS on May 19 with altered mentation, edema and hypotension. The patient was just discharged from the hospital on May 10 with acute on chronic combined respiratory failure secondary to healthcare associated pneumonia and severe pulmonary hypertension. The patient was noted at that time to have gram-negative bacteremia. She was treated with antimicrobials. 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 The patient was seen and January [address] Mcwilliams with a questionable history of COPD, pulmonary hypertension and sleep apnea.? She does have chronic hypoxemic respiratory failure, with a baseline oxygen requirement of 3 L/min at rest and 4 L/min with exertion.? In addition, she has chronic heart failure with preserved ejection fraction and has been maintained on Breo Ellipta on an outpatient basis. On presentation to the emergency department, the patient was initially documented to be afebrile with borderline hemodynamics. She was maintaining appropriate oxygen saturations on 4 L/min via nasal cannula. Laboratory evaluation revealed no evidence of a leukocytosis. The patient was anemic with a hemoglobin of 8.1 g/dL and a platelet count of 101,000. Chemistry profile was notable for a potassium of 6.4 and creatinine of 3.3. Lactate was within normal limits. Initial arterial blood gas demonstrated a pH of 7.01 with a PCO2 of 96 and PO2 of 107. Chest x-ray was notable for by basilar atelectasis and effusions. The patient was initially started on antimicrobials and IV fluids. She was subsequently admitted to the medical intensive care unit for further management. On arrival to the ICU, the patient was noted to be hypercapnic with continued encephalopathy. Following an extensive discussion with the patient's family regarding goals of care, the decision was made to proceed with intubation. [facility] Medical History (Updated 05/20/22 @ 06:[address] Price Brower DO) Acute cervical myofascial strain Acute on chronic respiratory failure with hypoxemia Acute respiratory failure with hypoxia Amputated toe of left foot Anemia Anemia Asthma Atherosclerotic heart disease of [place] coronary artery without angina pectoris Atrial fibrillation Atrial fibrillation Atrial fibrillation with rapid ventricular response CAD (coronary artery disease) CHF (congestive heart failure) Chronic congestive heart failure Chronic heart failure with preserved ejection fraction (HFpEF) Chronic heel ulcer Chronic kidney disease (CKD) stage G3b/A1, moderately decreased glomerular filtration rate (GFR) between 30-44 mL/min/1.73 square meter and albuminuria creatinine ratio less than 30 mg/g Chronic respiratory failure with hypoxia Chronic respiratory failure with hypoxia, on home oxygen therapy Chronic ulcer of great toe of left foot Closed head injury Congestive heart failure (CHF) COPD (chronic obstructive pulmonary disease) Current use of insulin Debility Decubitus ulcer of dorsum of foot, stage 2 Decubitus ulcer of left heel, stage 2 Decubitus ulcer of left heel, stage 3 Decubitus ulcer, heel, left, unstageable Depression Diabetes mellitus with diabetic polyneuropathy Diabetes type 2, controlled Diabetic foot ulcers Diverticulitis Dry gangrene Essential hypertension Former smoker History of amputation of left great toe History of non-ST elevation myocardial infarction (NSTEMI) (02/24/17) Hyperlipidemia Hypoglycemia due to type 1 diabetes mellitus Hypothyroid Morbid obesity Multiple wounds Myocardial infarct Non-rheumatic tricuspid valve insufficiency Nondisplaced fracture of distal phalanx of right great toe, initial encounter for closed fracture Nonrheumatic mitral (valve) insufficiency Obesity Obstructive sleep apnea On home O2 Renal insufficiency Secondary pulmonary arterial hypertension Thrombocytopenia Type 2 diabetes mellitus Vitamin D deficiency Home Medications aspirin 81 mg tablet,delayed release (Adult Aspirin Regimen) 81 mg PO DAILY HEART HEALTH 05/17/21 [History Last Taken 04/25/22 08:30] levothyroxine 100 mcg tablet (Synthroid) 125 mcg PO DAILY THYROID 12/13/21 [History Last Taken 04/26/22 06:00] montelukast 10 mg tablet 10 mg PO QHS ALLERGIES 12/13/21 [History Last Taken 04/25/22 20:58] sennosides 8.6 mg-docusate sodium 50 mg tablet (Senna-S) 1 tab PO BID STOOL SOFTNER 12/13/21 [History Last Taken 04/25/22 20:58] trazodone 100 mg tablet 150 mg PO QHS SLEEP 12/13/21 [History Last Taken 04/25/22 20:58] albuterol sulfate 90 mcg/actuation aerosol inhaler 2 puff inhalation Q6H PRN Shortness Of Breath 12/19/21 [History Last Taken Unknown] ferrous sulfate 325 mg (65 mg iron) tablet (FeroSul) 325 mg PO DAILY ANEMIA 12/28/21 [History Last Taken 04/25/22 11:00] insulin lispro 100 unit/mL subcutaneous pen (Humalog KwikPen (U-100) Insulin) 10 unit subcut TIDAC DIABETES 12/28/21 [History Last Taken 04/25/22 20:40] nystatin 100,000 unit/gram topical powder (Nyamyc) 1 applic topical TID IRRITATION 12/28/21 [History Last Taken 04/25/22 20:58] omeprazole 40 mg capsule,delayed release 40 mg PO BID GERD 12/28/21 [History Last Taken 04/25/22 20:58] polyethylene glycol 3350 17 gram oral powder packet 17 g PO DAILY CONSTIPATION 12/28/21 [History Last Taken 04/25/22 08:30] paroxetine HCl 20 mg tablet (Paxil) 20 mg PO DAILY MOOD 01/12/22 [History Last Taken 04/26/22 08:30] insulin detemir U-100 100 unit/mL (3 mL) subcutaneous pen (Levemir FlexTouch U-100 Insulin) 25 unit (0.25 mL) subcut QHS blood sugar #15 mL 02/24/22 [Rx Last Taken 04/24/22 19:30] acetaminophen 325 mg tablet (Tylenol) 650 mg PO Q6H PRN PAIN/FEVER 04/26/22 [History Last Taken 04/26/22 06:00] apixaban 5 mg tablet (Eliquis) 5 mg PO BID BLOOD THINNER 04/26/22 [History Last Taken 04/26/22 08:30] arginine 7 gram-glutam 7 gram-CaHMB 1.5 [id number]-min oral pwd pkt (Say (with collagen)) 1 packet PO BID WOUND HEALING 04/26/22 [History Last Taken 04/25/22 11:00] gabapentin 300 mg capsule 300 mg PO TID NERVE PAIN 04/26/22 [History Last Taken 04/25/22 13:30] mirtazapine 15 mg tablet 15 mg PO QHS MOOD 04/26/22 [History Last Taken 04/25/22 20:58] potassium chloride 20 mEq tablet,extended release(part/cryst) (Klor-Con M) 20 meq PO TID SUPPLEMENT 04/26/22 [History Last Taken 04/26/22 06:00] bumetanide 0.5 mg tablet 1 mg PO TID #0 tabs 05/10/22 [Rx Last Taken Unknown] diltiazem HCl 60 mg tablet 60 mg PO Q6 #0 tabs 05/10/22 [Rx Last Taken Unknown] metoprolol tartrate 25 mg tablet 12.5 mg PO BID #0 tabs 05/10/22 [Rx Last Taken Unknown] Allergy/AdvReac Type Severity Reaction Status Date / Time doxycycline Allergy NEEDS Verified 05/19/22 11:06 FOLLOW-UP latex Allergy NEEDS Verified 05/19/22 11:06 FOLLOW-UP Sulfa (Sulfonamide Allergy Anaphylaxis Verified 05/19/22 11:06 Antibiotics) sulfur dioxide Allergy Anaphylaxis Verified 05/19/22 11:06 oxycodone AdvReac Other Verified 05/19/22 11:06 Family History Grandmother Diabetes Mother Heart disease Surgical History H/O right heart catheterization History of cataract surgery History of coronary artery stent placement (02/24/17) History of heart artery stent Tubal ligation status Social History household members: none housing: other details: [facility] Living. Smoking Status: Former smoker how long ago did patient quit smokin alcohol intake: former year quit: 1999 substance use type: does not use caffeine: Yes Type: carbonated beverages and tea ROS Review of Systems ROS Unobtainable: due to endotracheal tube and due to mental status Physical Exam Const Constitutional Narrative: Intubated, sedated and mechanically ventilated. No ventilator dyssynchrony. HEENT normocephalic and head/scalp atraumatic Mouth: endotracheal tube in place and OG tube in place Eyes PERRL Neck supple General: trachea midline and CVC in place Chest inspection of chest normal Resp Auscultation: diminished lung sounds; Negative for rales, rhonchi or wheezes Cardio S1 normal heart sound and S2 normal heart sound Rhythm: abnormal rhythm GI normal to inspection, nondistended, normoactive bowel sounds Extremity Extremity Narrative: Right foot wrapped with Kerlix dressing. Left AKA. Skin General Skin Exam: venous stasis and dermatitis Neuro Sensorium / Orientation: sedated on vent Lab / Micro Data Result Diagrams: 05/21/22 04:20 05/21/22 04:20 Labs: Laboratory Results - last 24 hr 05/19/22 11:20: Sodium 144, Potassium 6.4 H*, Chloride 111 H, Carbon Dioxide 25.0, Anion Gap 8, BUN 61 H, Creatinine 3.33 H, Estim Creat Clear Calc 11.51, Est GFR (MDRD) Af Amer 18 L, Est GFR (MDRD) Non-Af 15 L, BUN/Creatinine Ratio 18.3, Glucose 238 H, Calcium 9.4, Total Bilirubin 0.20, AST 7 L, ALT 7 L, Alkaline Phosphatase 142 H, Troponin I High Sens 17, Total Protein 6.3 L, Albumin 2.1 L, Globulin 4.2, Albumin/Globulin Ratio 0.5 L 05/19/22 11:48: POC Glucose 219 H 05/19/22 13:45: WBC 8.4, RBC 2.62 L, Hgb 8.1 L, Hct 29.0 L, MCV 110.7 H, MCH 30.9, MCHC 27.9 L, RDW Std Deviation 75.1 H, RDW Coeff of Magen 18.3 H, Plt Count 101 L, MPV 11.9, Immature Gran % (Auto) 0.600, Neut % (Auto) 87.3 H, Lymph % (Auto) 8.5 L, [place] % (Auto) 3.3, Eos % (Auto) 0.2, Baso % (Auto) 0.1, Absolute Neuts (auto) 7.3, Absolute Lymphs (auto) 0.71 L, Nucleated RBC % 0, Anisocytosis 1+ 05/19/22 13:45: PT 17.8 H, INR 1.5, APTT 32.2 05/19/22 13:45: Lactic Acid 0.6 05/19/22 17:27: POC Glucose 259 H 05/19/22 21:22: POC Glucose 198 H 05/19/22 21:25: Sodium 140, Potassium 5.6 H, Chloride 110 H, Carbon Dioxide 26.0, Anion Gap 4 L, BUN 61 H, Creatinine 3.33 H, Estim Creat Clear Calc 14.35, Est GFR (MDRD) Af Amer 18 L, Est GFR (MDRD) Non-Af 15 L, BUN/Creatinine Ratio 18.3, Glucose 274 H, Calcium 9.5 05/19/22 22:20: COVID-19 (JOSE CRUZ) Not Detected 05/20/22 03:50: WBC 9.4, RBC 2.51 L, Hgb 7.6 L, Hct 26.8 L, MCV 106.8 H, MCH 30.3, MCHC 28.4 L, RDW Std Deviation 71.6 H, RDW Coeff of Magen 18.1 H, Plt Count 104 L, MPV 11.3, Immature Gran % (Auto) 1.100 H, Neut % (Auto) 86.2 H, Lymph % (Auto) 9.4 L, [place] % (Auto) 3.1, Eos % (Auto) 0.1, Baso % (Auto) 0.1, Absolute Neuts (auto) 8.1 H, Absolute Lymphs (auto) 0.89, Nucleated RBC % 0, Differential Comment COMMENT, Platelet Estimate MOD 05/20/22 03:50: Sodium 145, Potassium 5.1, Chloride 114 H, Carbon Dioxide 25.0, Anion Gap 6, BUN 57 H, Creatinine 3.20 H, Estim Creat Clear Calc 14.93, Est GFR (MDRD) Af Amer 19 L, Est GFR (MDRD) Non-Af 15 L, BUN/Creatinine Ratio 17.8, Glucose 267 H, Calcium 8.9, Total Bilirubin 0.40, AST 7 L, ALT < 6 L, Alkaline Phosphatase 126 H, Total Protein 5.4 L, Albumin 1.9 L, Globulin 3.5, Albumin/Globulin Ratio 0.5 L 05/20/22 03:50: Total Creatine Kinase 19 L, Triglycerides 95 05/20/22 04:25: Ur Random Sodium 33, Urine Creatinine 48.10, Urine Potassium 46.0, Urine Chloride 51 05/20/22 05:35: POC Glucose 239 H Micro: Microbiology 05/20/22 04:25 Urine Catheter - Knight Legionella Antigen - Final 05/20/22 04:25 Urine Catheter - Knight Streptococcus pneumoniae Antigen (M - Final 05/19/22 22:20 Mucosa - Nasopharyngeal Respiratory Panel (PCR) - Final ABG Data ABG results: ABG 05/19/22 05/19/22 21:16 23:58 Specimen Type ART ART Sample Site R Brach R Brach pH 7.01 L* 7.20 L Bicarbonate Actual 24.5 24.9 Total CO2 27 27 Base Excess -7 L -3 L O2 Saturation 94 L 54 L O2 % 100 50 ABG pCO2 96.8 H* 63.4 H ABG pO2 107 H 35 L* Hussain Test Positive Positive Respiration Rate 14 O2 Delivery Device NRB ET Tube Vent Mode BiLevel Tidal Volume 450 POC PEEP 5 Crit Call To/Read Back Yes Yes Rhythm Strip Rhythm Strip: A-fib Rate: 104 Ectopy: None Radiology Impression Chest X-Ray 05/19/22 12:10 IMPRESSION: Bilateral pleural effusions right greater than left with bibasilar atelectasis and/or infiltrate superimposed on CHF. Electronically Signed: Butch Ling MD at 13:40 EDT , Chest X-Ray 05/19/22 13:50 IMPRESSION: The tip of the right central line is in the proximal portion of the superior vena cava. The remainder of the examination is unchanged. Electronically Signed: Butch Ling MD at 14:29 EDT , Chest X-Ray 05/19/22 22:25 IMPRESSION: Endotracheal tube terminates 4 cm above the ousmane. Decreased right pleural effusion. Right IJ central catheter and enteric tube remain. Electronically Signed: Froy Rousseau MD at 22:44 EDT , KUB X-Ray 05/19/22 22:25 IMPRESSION: OG tube terminates over the gastric body with side hole below the diaphragm. Partially visualized bowel gas pattern is nonobstructive. Electronically Signed: Froy Rousseau MD at 22:43 EDT , Charges/Coding Procedures Hospitalists Procedures: [id number] [facility] Hr
--- NOTE | 2022-05-20 06:42 | NURSING ---
Attempted to call patient's son Chava to give him update on patient's condition. No answer and voicemail was left to call back.
[2022-05-20 07:06] LABS: Blood Gas Specimen Type VEN; O2 Delivery Device Adult Vent; PEEP 5; RR 14; SITE R Brach; VBG BASE EXCESS 1 mmol/L (-1.0-3.5); VBG Bicarbonate 26 mmol/L (22-26); VBG PO2 28 mmHg (25-40); VBG SO2 52 % (50-70); VBG TCO2 27 mmol/L (23-33); VBG pCO2 44.3 mmHg (41-51); VBG pH 7.38 (7.32-7.42)
[2022-05-20] MEDS: Heparin Injection (Vial) 5,000 UNIT/ML VIAL 5000 UNIT SC ×3 (07:17→21:41)
[2022-05-20 07:42] LABS: BNP,B-Type NATRIURETIC PEPTIDE 311.4 pg/mL (0-100)
[2022-05-20] MEDS: Chlorhexidine 15 ML PO ×2 (08:17→21:41)
[2022-05-20] MEDS: Propofol 10MG/Ml 1,000 MG/100 ML Bottle 8.2 MG CONT INF (08:20)
[2022-05-20 08:23] LABS: Procalcitonin 0.28 ng/mL (0.00-0.09)
[2022-05-20] MEDS: Paroxetine 20 MG Tablet PO (08:44)
[2022-05-20] MEDS: Aspirin E.C. 81 MG Tablet PO (08:44)
[2022-05-20] MEDS: Ferrous Sulfate 325 MG Tablet PO (08:44)
[2022-05-20 11:30] LABS: Bedside Glucose 154 mg/dL (74-106)
--- NOTE | 2022-05-20 15:43 | PN_ITS ---
Subjective Subjective Patient seen and examined. She is intubated and sedated. Unable to do review of systems due to her being intubated and sedated. Objective Data Objective Data Vital Signs: Vital Signs Temp Pulse Resp BP Pulse Ox O2 Del Method O2 Flow Rate 98.2 F 123 H 14 116/71 98 Mechanical Ventilator 15 05/20/22 12:00 05/20/22 14:52 05/20/22 14:52 05/20/22 12:00 05/20/22 14:52 05/20/22 12:00 05/20/22 09:00 FiO2 70 05/20/22 14:52 Oxygen Flow Rate (L/min) 15 Oxygen Delivery Method Mechanical Ventilator Weight: 209 lb 7.026 oz Body Mass Index (BMI) 34.9 Intake & Output: Intake and Output for Last 24 Hours 05/18/22 05/19/22 05/20/22 23:59 23:59 23:59 Intake Total 3659.27 / 3668.67 1537.34 / 1537.34 Output Total 0 / 0 550 / 550 Balance 3659.27 / 3668.67 987.34 / 987.34 Lab / Micro Data Result Diagrams: 05/20/22 03:50 05/20/22 03:50 Labs: Laboratory Results - last 24 hr 05/19/22 17:27: POC Glucose 259 H 05/19/22 21:22: POC Glucose 198 H 05/19/22 21:25: Sodium 140, Potassium 5.6 H, Chloride 110 H, Carbon Dioxide 26.0, Anion Gap 4 L, BUN 61 H, Creatinine 3.33 H, Estim Creat Clear Calc 14.35, Est GFR (MDRD) Af Amer 18 L, Est GFR (MDRD) Non-Af 15 L, BUN/Creatinine Ratio 18.3, Glucose 274 H, Calcium 9.5 05/19/22 22:20: COVID-19 (JOSE CRUZ) Not Detected 05/20/22 03:50: WBC 9.4, RBC 2.51 L, Hgb 7.6 L, Hct 26.8 L, MCV 106.8 H, MCH 30.3, MCHC 28.4 L, RDW Std Deviation 71.6 H, RDW Coeff of Magen 18.1 H, Plt Count 104 L, MPV 11.3, Immature Gran % (Auto) 1.100 H, Neut % (Auto) 86.2 H, Lymph % (Auto) 9.4 L, [place] % (Auto) 3.1, Eos % (Auto) 0.1, Baso % (Auto) 0.1, Absolute Neuts (auto) 8.1 H, Absolute Lymphs (auto) 0.89, Nucleated RBC % 0, Differential Comment COMMENT, Platelet Estimate MOD 05/20/22 03:50: Sodium 145, Potassium 5.1, Chloride 114 H, Carbon Dioxide 25.0, Anion Gap 6, BUN 57 H, Creatinine 3.20 H, Estim Creat Clear Calc 14.93, Est GFR (MDRD) Af Amer 19 L, Est GFR (MDRD) Non-Af 15 L, BUN/Creatinine Ratio 17.8, Glucose 267 H, Calcium 8.9, Total Bilirubin 0.40, AST 7 L, ALT < 6 L, Alkaline Phosphatase 126 H, Total Protein 5.4 L, Albumin 1.9 L, Globulin 3.5, Albumin/Globulin Ratio 0.5 L 05/20/22 03:50: Total Creatine Kinase 19 L, Triglycerides 95 05/20/22 04:25: Ur Random Sodium 33, Urine Creatinine 48.10, Urine Potassium 46.0, Urine Chloride 51 05/20/22 05:35: POC Glucose 239 H 05/20/22 07:05: B-Natriuretic Peptide 311.4 H 05/20/22 07:05: Procalcitonin 0.28 H 05/20/22 07:05: Blood Type O NEGATIVE, Antibody Screen NEGATIVE 05/20/22 11:08: POC Glucose 154 H Micro: Microbiology 05/19/22 22:20 Transtracheal Aspirate Gram Stain - Final 05/20/22 04:25 Urine Catheter - Knight Legionella Antigen - Final 05/20/22 04:25 Urine Catheter - Knight Streptococcus pneumoniae Antigen (M - Final 05/19/22 22:20 Mucosa - Nasopharyngeal Respiratory Panel (PCR) - Final ABG Data ABG results: ABG 05/19/22 05/19/22 05/20/22 21:16 23:58 06:56 Specimen Type ART ART ASHANTI Sample Site R Brach R Brach R Brach pH 7.01 L* 7.20 L Bicarbonate Actual 24.5 24.9 Total CO2 27 27 Base Excess -7 L -3 L O2 Saturation 94 L 54 L O2 % 100 50 ABG pCO2 96.8 H* 63.4 H ABG pO2 107 H 35 L* Hussain Test Positive Positive VBG pH 7.38 VBG pO2 28 VBG HCO3 26 VBG Total CO2 27 VBG O2 Sat (Calc) 52 VBG Base Excess 1 POC Mix VBG pCO2 Pt Tmp 44.3 Respiration Rate 14 14 O2 Delivery Device NRB ET Tube Adult Vent Vent Mode BiLevel Tidal Volume 450 POC PEEP 5 5 Crit Call To/Read Back Yes Yes Radiography Diagnostic Testing: Radiology Impression Chest X-Ray 05/19/22 22:25 IMPRESSION: Endotracheal tube terminates 4 cm above the ousmane. Decreased right pleural effusion. Right IJ central catheter and enteric tube remain. Electronically Signed: Froy Rousseau MD at 22:44 EDT , KUB X-Ray 05/19/22 22:25 IMPRESSION: OG tube terminates over the gastric body with side hole below the diaphragm. Partially visualized bowel gas pattern is nonobstructive. Electronically Signed: Froy Rousseau MD at 22:43 EDT , Rhythm Strip Rhythm Strip: A-fib Rate: 104 Ectopy: None Physical Exam Const Constitutional Narrative: intubated, sedated. RASS score is -4 HEENT normocephalic and moist oral mucous membranes Eyes PERRL and EOMs intact bilaterally Neck supple Lymph Lymphatic: no lymphadenopathy noted Resp Resp Narrative: intubated, sedated, diminished breath sounds bibasally. Cardio regular rate, regular rhythm, S1 normal heart sound, S2 normal heart sound and no murmurs GI normal to inspection, nondistended, normoactive bowel sounds, soft to palpation, non-tender and non-distended Extremity normal capillary refill and no clubbing, cyanosis or edema Skin Skin Narrative: left AKA, intact stumps. Neuro Neuro Narrative: sedated, RASS score -4 Psych thought process normal Appearance: appropriate Assessment & Plan Assessment/Plan (1) Septic shock: (2) Severe sepsis: (3) Acute on chronic respiratory failure with hypoxemia: PLAN: Plan #Acute hypoxic respiratory failure due to pneumonia * currently intubated and sedated. RASS score is -4 * on IV vancomycin and zosyn * Blood cultures and urine cultures as well as sputum culture pending. * She has had a history of gram-negative bacteremia. * being hydrated with IVF * #Septic shock due to pneumonia * currently on levophed * IVF discontinued due to history of RV dysfunction * blood and urine cultures * on vancomycin and zosyn * Critical care on board * #Acute encephalopathy * thought to be due to hypercapnia * was supposed to be on BIPAP but not clear if she has been using it in the SNF * Will monitor * #MIKE on CKD * likely pre renal. Cr is stable. * improved * #Dry gangrene of LLE: s/p recent AKA. Stable #Type 2 diabetes mellitus: long acting insulin on hold. ISS. Accuchecks ACHS. #Hyperlipidemia: on statin #CAD s/p stent: #Acute on chronic anemia: Hb on 7.6. Baseline is 8-9. Will monitor. Transfuse if Hb <7 #HFpEF: not in exacerbation. Lasix on hold due to hypotension. #History of afib: cardizem and metoprolol on hold due to septic shock. eliquis also on hold. #GERD; on PPI #Anxiety: on paxil and mirtazapine #Hypothyroidism: on synthroid. DVT prophylaxis; eliquis on hold. Charges/Coding Visit Charges Inpatient E&M: 15308 Subs Hosp L3
[2022-05-20 16:35] LABS: Bedside Glucose 124 mg/dL (74-106)
[2022-05-20] MEDS: Mirtazapine 15 MG Tablet PO ×2 (21:40)
[2022-05-20 23:11] LABS: Bacteria 0 SEEN /hpf (None Seen); Mucous, Urine 0 SEEN /hpf (<or=2+); Red Blood Cells-Urine 0 SEEN /hpf (0-5)
[2022-05-20 23:17] LABS: Color, Urine Yellow (Yellow); Glucose, Dipstick 50 mg/dl (Normal); Ketone-Dipstick Negative (Negative); Leukocyte Esterase-Dipstick 500 /ul (Negative); Nitrite-Dipstick Negative (Negative); Occult Blood-Urine 250 /ul (Negative); Protein-Dipstick 30 mg/dl (Negative); Specific Gravity, Urine 1.015 (1.002-1.030); Urine Bilirubin Dipstick Negative (Negative); Urine Clarity Sl. Cloudy (Clear); Urine Urobilinogen Normal (Normal)
[2022-05-20 23:23] LABS: Squamous Epithelial Cells - UA 0-5 SEEN /hpf (5-10); White Blood Cells 10-25 SEEN /hpf (0-5)
[2022-05-20 23:24] LABS: Hyaline Cast 5-10 SEEN /lpf (0-5)
[2022-05-20 23:25] LABS: Calcium Oxalate Crystals Ur 2+ /hpf (<or=2+)
[2022-05-21] VITALS (43 sets, daily range): BP systolic 83–118; BP diastolic 48–79; PULSE 104–138; RESP 11–34; TEMP 37.2–37.7; O2SAT 87–99; BMI 35.2
[2022-05-21 00:35] LABS: Bedside Glucose 102 mg/dL (74-106)
[2022-05-21 04:35] LABS: Absolute Lymphocyte Count 1.24 X10^3/uL (0.83-4.51); Absolute Neutrophil Count 5.9 X10^3/uL (2.0-7.7); Basophil# 0.01 X10^3/uL; Basophil% 0.1 % (0-1); Eosinophil# 0.12 X10^3/uL; Eosinophils% 1.5 % (0-5); Hematocrit 24.6 % (37-47); Hemoglobin 7.2 g/dL (12.0-15.0); Lymphocyte # 1.24 X10^3/ul (0.83-4.51); Lymphocyte % 15.9 % (19-41); Mean Corp Hgb Conc 29.3 g/dL (32-36); Mean Corpuscular Volume 102.5 fL (81-99); Mean Platelet Vol. 10.8 fl (6.2-12.0); Monocyte# 0.49 X10^3/uL; Monocyte% 6.3 % (0-10); NRBC Flagged by Analyzer 0.3 % (0-5); Neutrophil # 5.88 X10^3/uL (2.7-7.7); Neutrophil % 75.6 % (47-70); POSITIVE COUNT YES; POSITIVE MORPHOLOGY YES; Platelet Count 92 K/mm3 (150-450); RBC Distribution Width SD 71.1 fl (35.1-43.9); White Blood Count 7.8 K/mm3 (4.4-11.0)
[2022-05-21 04:49] LABS: Anisocytosis 2+; Differential Indicated SCAN CRITERIA MET; Macrocytosis 1+
[2022-05-21 04:50] LABS: Microcytosis 1+
[2022-05-21 05:06] LABS: Vancomycin, Random Level 24.1 ug/mL (0.0-15.0)
[2022-05-21 05:08] LABS: ALB/GLOB Ratio 0.5 RATIO (0.9-2.4); AST(SGOT) 10 U/L (15-37); Alanine Aminotransfer ALT/SGPT < 6 U/L (13-56); Albumin, Serum 1.6 g/dL (3.2-5.0); Alkaline Phosphatase 114 U/L (45-117); Anion Gap 5 (5-15); BUN 53 mg/dL (7-18); BUN/Creat Ratio 20.8 RATIO (10-20); Calcium,Total 8.6 mg/dL (8.5-10.1); Chloride 115 mmol/L (98-107); Creatinine, Serum 2.55 mg/dL (0.55-1.02); EST Glomerular Filtration Rate 20 mL/min (>60); Est Glom Filt Rate - Afr Amer 24 mL/min (>60); Estimated Creatinine Clearance 18.74 ml/min; Globulin 3.4 g/dL (2.2-4.2); Glucose 92 mg/dL (74-106); Sodium Level 147 mmol/L (136-145)
[2022-05-21] MEDS: Levothyroxine 125 MCG Tablet PO (05:15)
[2022-05-21] MEDS: Heparin Injection (Vial) 5,000 UNIT/ML VIAL 5000 UNIT SC ×3 (05:15→21:53)
[2022-05-21 05:41] LABS: Bedside Glucose 79 mg/dL (74-106)
--- NOTE | 2022-05-21 06:06 | PN.CC_ITS ---
Assessment & Plan Assessment/Plan (1) Septic shock: PLAN: Plan RECOMMENDATIONS: 1. Continue assist-control mode mechanical ventilation. Wean FiO2 and PEEP to maintain saturations at or above 90%. 2. Continue empiric broad-spectrum antimicrobials. 3. Continue Levophed to maintain a mean arterial pressure at or above 65 mmHg. 4. Continue to monitor H&H daily and transfuse if hemoglobin drops below 7 g/dL. 5. Continue appropriate ICU prophylaxis. 6. Ongoing goals of care discussion with the patient's family. IMPRESSIONS: 1. Septic shock The patient presented with sepsis of unclear etiology with acute sepsis related organ dysfunction as evidenced by decompensated respiratory failure requiring intubation and invasive mechanical ventilatory support along with acute kidney injury. The patient ultimately required the initiation of vasopressor support to maintain hemodynamic stability. Given her history of RV dysfunction and pulmonary hypertension, recommend discontinuation of continuous IV fluids. Continue Levophed to maintain a mean arterial pressure at or above 65 mmHg. Continue empiric broad-spectrum antimicrobials, while awaiting infectious work- up. 2. Encephalopathy Most likely related to acute CO2 retention. It is unclear as to whether the patient had access to a BiPAP at her nursing facility and whether or not it was being utilized. 3. Acute on chronic combined respiratory failure While underlying pneumonia is a possibility, the patient's chest imaging seems far more concerning for decompensated heart failure with evidence of pleural effusions. However, her current utilization of vasopressor support will preclude the use of diuretics at this time. In the interim, the patient will be maintained on empiric antibiotics. Plan to continue scheduled bronchodilators over concerns for underlying obstructive lung disease. 4. Acute on chronic kidney disease Most likely prerenal in etiology in the setting of #1. Creatinine has improved. We will plan to continue to monitor urine output for now. No current in dication for renal replacement therapy. 5. 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 Continue to monitor H&H daily. Transfuse if hemoglobin drops below 7 g/dL. Continue PPI therapy as ordered. TIME: 33 minutes of critical care time, independent of procedures, was spent addressing the patient septic shock, encephalopathy, acute on chronic combined respiratory failure, acute on chronic kidney disease, review of all data and collaboration with the care team. Subjective Subjective The patient was seen and examined at the bedside this morning. Events from the last 24 hours have been reviewed. The patient currently has a low-grade fever and remains on assist control mode mechanical ventilation with an FiO2 requirement of 45%. She is still requiring Levophed at 2.5 mcg/min to maintain hemodynamic stability. The patient is currently documented to be overall net +4.3 L for the hospitalization. Hemoglobin this morning was noted to be 7.2 g/dL. Platelet count is low at 92,000. Creatinine has improved to 2.5. The patient did ultimately fail a spontaneous breathing trial this morning. Objective Data Objective Data The patient's most recent lab work, culture data and imaging studies have all been personally reviewed. Surface echocardiogram dated April 2022 demonstrated an ejection fraction of 55% with mild to moderate global RV systolic dysfunction and a pulmonary artery systolic pressure of 50 mmHg. Blood, urine and sputum cultures are pending. Vital Signs: Vital Signs Temp Pulse Resp BP Pulse Ox O2 Del Method O2 Flow Rate 99.4 F H 130 H 14 117/72 97 Mechanical Ventilator 15 05/21/22 06:00 05/21/22 06:00 05/21/22 06:00 05/21/22 06:00 05/21/22 06:00 05/21/22 06:00 05/20/22 09:00 FiO2 45 05/21/22 06:00 Oxygen Flow Rate (L/min) 15 Oxygen Delivery Method Mechanical Ventilator Weight: 211 lb 6.773 oz Body Mass Index (BMI) 35.2 Intake & Output: Intake and Output for Last 24 Hours 05/19/22 05/20/22 05/21/22 23:59 23:59 23:59 Intake Total 3659.27 / 3668.67 1887.88 / 1903.08 140.65 / 140.65 Output Total 0 / 0 1000 / 1200 375 / 375 Balance 3659.27 / 3668.67 887.88 / 703.08 -234.35 / -234.35 Lab / Micro Data Attestation: I reviewed the patient's lab results. Result Diagrams: 05/21/22 04:20 05/21/22 04:20 Labs: Laboratory Results - last 24 hr 05/20/22 04:25: Urine Color Yellow, Urine Clarity Sl. Cloudy, Urine pH 5.0, Ur Specific [place] 1.015, Urine Protein 30 H, Urine Glucose (UA) 50 H, Urine Ketones Negative, Urine Occult Blood 250 H, Urine Nitrite Negative, Urine Bilirubin Negative, Urine Urobilinogen Normal, Ur Leukocyte Esterase 500 H, Urine RBC 0 SEEN, Urine WBC 10-25 SEEN, Ur Squamous Epith Cells 0-5 SEEN, Calcium Oxalate Crystal 2+, Urine Bacteria 0 SEEN, Hyaline Casts 5-10 SEEN, Urine Mucus 0 SEEN 05/20/22 07:05: B-Natriuretic Peptide 311.4 H 05/20/22 07:05: Procalcitonin 0.28 H 05/20/22 07:05: Blood Type O NEGATIVE, Antibody Screen NEGATIVE 05/20/22 11:08: POC Glucose 154 H 05/20/22 16:11: POC Glucose 124 H 05/21/22 00:12: POC Glucose 102 05/21/22 04:20: Random Vancomycin 24.1 H 05/21/22 04:20: WBC 7.8, RBC 2.40 L, Hgb 7.2 L, Hct 24.6 L, MCV 102.5 H, MCH 30.0, MCHC 29.3 L, RDW Std Deviation 71.1 H, RDW Coeff of Magen 19.0 H, Plt Count 92 L, MPV 10.8, Immature Gran % (Auto) 0.600, Neut % (Auto) 75.6 H, Lymph % (Auto) 15.9 L, [place] % (Auto) 6.3, Eos % (Auto) 1.5, Baso % (Auto) 0.1, Absolute Neuts (auto) 5.9, Absolute Lymphs (auto) 1.24, Nucleated RBC % 0.3, Anisocytosis 2+, Microcytosis 1+, Macrocytosis 1+ 05/21/22 04:20: Sodium 147 H, Potassium 4.0, Chloride 115 H, Carbon Dioxide 27.0, Anion Gap 5, BUN 53 H, Creatinine 2.55 H, Estim Creat Clear Calc 18.74, Est GFR (MDRD) Af Amer 24 L, Est GFR (MDRD) Non-Af 20 L, BUN/Creatinine Ratio 20.8 H, Glucose 92, Calcium 8.6, Total Bilirubin 0.40, AST 10 L, ALT < 6 L, Alkaline Phosphatase 114, Total Protein 5.0 L, Albumin 1.6 L, Globulin 3.4, Albumin/Globulin Ratio 0.5 L 05/21/22 05:10: POC Glucose 79 Micro: Microbiology 05/19/22 22:20 Transtracheal Aspirate Gram Stain - Final 05/20/22 04:25 Urine Catheter - Knight Legionella Antigen - Final 05/20/22 04:25 Urine Catheter - [facility] Streptococcus pneumoniae Antigen (M - Final 05/19/22 22:20 Mucosa - Nasopharyngeal Respiratory Panel (PCR) - Final ABG Data ABG results: ABG 05/20/22 06:56 Specimen Type ASHANTI Sample Site R Brach VBG pH 7.38 VBG pO2 28 VBG HCO3 26 VBG Total CO2 27 VBG O2 Sat (Calc) 52 VBG Base Excess 1 POC Mix VBG pCO2 Pt Tmp 44.3 Respiration Rate 14 O2 Delivery Device Adult Vent POC PEEP 5 Rhythm Strip Rhythm Strip: A-fib Rate: 104 Ectopy: None Physical Exam Const Constitutional Narrative: Intubated, sedated and mechanically ventilated. No ventilator dyssynchrony. HEENT normocephalic and head/scalp atraumatic Mouth: endotracheal tube in place and OG tube in place Eyes PERRL Neck supple General: trachea midline and CVC in place Chest inspection of chest normal Resp Auscultation: diminished lung sounds; Negative for rales, rhonchi or wheezes Cardio S1 normal heart sound and S2 normal heart sound Rate: tachycardic Rhythm: abnormal rhythm GI normal to inspection, nondistended, normoactive bowel sounds Extremity Extremity Narrative: Right foot wrapped with Kerlix dressing. Left AKA. Skin General Skin Exam: venous stasis and dermatitis Neuro Sensorium / Orientation: sedated on vent Charges/Coding Procedures Hospitalists Procedures: 75917 Critial Care 1st Hr
--- NOTE | 2022-05-21 07:28 | PN.HOSP_ITS ---
Reason for Visit Reason for Visit: Diagnoses Sepsis, unspecified organism (05/19/22) Pneumonia, unspecified organism (05/19/22) Acute and chronic respiratory failure with hypoxia (05/19/22) Severe sepsis without septic shock (05/19/22) Severe sepsis with septic shock (05/19/22) Subjective Subjective Laying in bed, intubated and sedated. Presently on norepinephrine 2.5, fentanyl 7.5, propofol. On minimal vent settings with PEEP of 5, tidal volume 450 and 45% FiO2. Blood pressure 113/76, heart rate 127, SPO2 98% Objective Data Objective Data Vital Signs: Vital Signs Temp Pulse Resp BP Pulse Ox O2 Del Method O2 Flow Rate 99.4 F H 130 H 14 117/72 97 Mechanical Ventilator 15 05/21/22 06:00 05/21/22 06:00 05/21/22 06:00 05/21/22 06:00 05/21/22 06:00 05/21/22 06:00 05/20/22 09:00 FiO2 45 05/21/22 06:00 Oxygen Flow Rate (L/min) 15 Oxygen Delivery Method Mechanical Ventilator Weight: 95.9 kg Body Mass Index (BMI) 35.2 Intake & Output: Intake and Output for Last 24 Hours 05/19/22 05/20/22 05/21/22 23:59 23:59 23:59 Intake Total 3659.27 / 3668.67 1887.88 / 1903.08 143.15 / 143.15 Output Total 0 / 0 1000 / 1200 375 / 375 Balance 3659.27 / 3668.67 887.88 / 703.08 -231.85 / -231.85 Lab / Micro Data Result Diagrams: 05/21/22 04:20 05/21/22 04:20 Labs: Laboratory Results - last 24 hr 05/20/22 04:25: Urine Color Yellow, Urine Clarity Sl. Cloudy, Urine pH 5.0, Ur Specific [place] 1.015, Urine Protein 30 H, Urine Glucose (UA) 50 H, Urine Ketones Negative, Urine Occult Blood 250 H, Urine Nitrite Negative, Urine Bilirubin Negative, Urine Urobilinogen Normal, Ur Leukocyte Esterase 500 H, Urine RBC 0 SEEN, Urine WBC 10-25 SEEN, Ur Squamous Epith Cells 0-5 SEEN, Calcium Oxalate Crystal 2+, Urine Bacteria 0 SEEN, Hyaline Casts 5-10 SEEN, Urine Mucus 0 SEEN 05/20/22 07:05: B-Natriuretic Peptide 311.4 H 05/20/22 07:05: Procalcitonin 0.28 H 05/20/22 07:05: Blood Type O NEGATIVE, Antibody Screen NEGATIVE 05/20/22 11:08: POC Glucose 154 H 05/20/22 16:11: POC Glucose 124 H 05/21/22 00:12: POC Glucose 102 05/21/22 04:20: Random Vancomycin 24.1 H 05/21/22 04:20: WBC 7.8, RBC 2.40 L, Hgb 7.2 L, Hct 24.6 L, MCV 102.5 H, MCH 30.0, MCHC 29.3 L, RDW Std Deviation 71.1 H, RDW Coeff of Magen 19.0 H, Plt Count 92 L, MPV 10.8, Immature Gran % (Auto) 0.600, Neut % (Auto) 75.6 H, Lymph % (Auto) 15.9 L, [place] % (Auto) 6.3, Eos % (Auto) 1.5, Baso % (Auto) 0.1, Absolute Neuts (auto) 5.9, Absolute Lymphs (auto) 1.24, Nucleated RBC % 0.3, Anisocytosis 2+, Microcytosis 1+, Macrocytosis 1+ 05/21/22 04:20: Sodium 147 H, Potassium 4.0, Chloride 115 H, Carbon Dioxide 27.0, Anion Gap 5, BUN 53 H, Creatinine 2.55 H, Estim Creat Clear Calc 18.74, Est GFR (MDRD) Af Amer 24 L, Est GFR (MDRD) Non-Af 20 L, BUN/Creatinine Ratio 20.8 H, Glucose 92, Calcium 8.6, Total Bilirubin 0.40, AST 10 L, ALT < 6 L, Alkaline Phosphatase 114, Total Protein 5.0 L, Albumin 1.6 L, Globulin 3.4, Albumin/Globulin Ratio 0.5 L 05/21/22 05:10: POC Glucose 79 Micro: Microbiology 05/19/22 22:20 Transtracheal Aspirate Gram Stain - Final 05/20/22 04:25 Urine Catheter - Knight Legionella Antigen - Final 05/20/22 04:25 Urine Catheter - [facility] Streptococcus pneumoniae Antigen (M - Final 05/19/22 22:20 Mucosa - Nasopharyngeal Respiratory Panel (PCR) - Final Rhythm Strip Rhythm Strip: A-fib Rate: 104 Ectopy: None Physical Exam Narrative General: Intubated and sedated HEENT: Atraumatic, normocephalic Eyes: Did not spontaneously open eyes on exam Neck: Supple Respiratory: Mechanically ventilated, no overt rhonchi or wheezes Cardiovascular: Tachycardic GI: Soft, nontender, nondistended Extremities: 1-2+ pitting edema in bilateral upper extremities, right lower extremity with trace to 1+ pitting edema Musculoskeletal: Left AKA noted Neuro: Unable to participate in neuro exam Skin: Has some purpura on upper extremities Psych: Unable to cooperate due to intubated sedated Assessment & Plan Assessment/Plan (1) Septic shock: PLAN: Plan #Septic shock -unclear etiology -cultures pending, sputum culture with 1+ gram-negative rods -cont broad spectrum abx pending final culture results #Acute on chronic combined resp failure/RV dysfunction/pulm HTN/HFpEF -requiring intubation and mech ventilation -Pneumonia versus decompensated heart failure -Imaging demonstrates pleural effusion but given vasopressor support diuretics are held -Continue bronchodilators and broad-spectrum antibiotics #MIKE on CKD -Likely prerenal secondary to septic shock -I's and O's #Encephalopathy -likely 2/2 CO2 retention -Presently intubated #Type 2 diabetes mellitus -Continue insulin sliding scale #Atrial fibrillation -Eliquis held, Cardizem and metoprolol held due to septic shock #Hypothyroidism -Synthroid #Coronary artery disease status post stenting -on asa, statin not on home med list, ultimately will benefit if no contraindication #Dry gangrene of left leg status post recent AKA -Continue to monitor #DVT ppx: SCDs Coco Romero MD Time spent in the patient's overall evaluation,decision-making process, review of diagnostic data, adjustment of management, discussion with other providers, nursing nursing and ancillary staff involved in patient's care documentation, 60 minutes Charges/Coding Visit Charges Inpatient E&M: 27132 Subs Hosp L2
[2022-05-21] MEDS: Ipratropium/Albuterol Sulfate 3 ML AMPUL.NEB INHALATION ×5 (07:37→23:16)
--- NOTE | 2022-05-21 08:19 | PCM.RX.CS ---
Consult Pharmacy has been consulted to manage selected antiobiotic: Vancomycin Type of Consult: Follow-up Suspected Infection: Pneumonia Prior Doses of Antibiotics Received/Current Regimen: Received loading dose of 2000mg x 1 on 05.19.22. Labs: Sodium 147 mmol/L (136-145) H 05/21/22 04:20 Potassium 4.0 mmol/L (3.5-5.1) 05/21/22 04:20 Chloride 115 mmol/L (98-107) H 05/21/22 04:20 Carbon Dioxide 27.0 mmol/L (21.0-32.0) 05/21/22 04:20 Anion Gap 5 (5-15) 05/21/22 04:20 BUN 53 mg/dL (7-18) H 05/21/22 04:20 Creatinine 2.55 mg/dL (0.55-1.02) H 05/21/22 04:20 Est GFR (MDRD) Af Amer 24 mL/min (>60) L 05/21/22 04:20 Est GFR (MDRD) Non-Af 20 mL/min (>60) L 05/21/22 04:20 BUN/Creatinine Ratio 20.8 RATIO (10-20) H 05/21/22 04:20 Glucose 92 mg/dL (74-106) 05/21/22 04:20 Random Vancomycin 24.1 ug/mL (0.0-15.0) H 05/21/22 04:20 Microbiology: Microbiology 05/19/22 22:20 Transtracheal Aspirate Gram Stain - Final 05/20/22 04:25 Urine Catheter - [facility] Legionella Antigen - Final 05/20/22 04:25 Urine Catheter - [facility] Streptococcus pneumoniae Antigen (M - Final 05/19/22 22:20 Mucosa - Nasopharyngeal Respiratory Panel (PCR) - Final Weight used for dosin.9 kg Estimated Creatinine Clearance: ~25 ml/min Goal Trough: 15-20 mcg/mL Pharmacy Plan for Drug Dosing: Random level this AM was 24.1 and above goal of 15-20mcg/ml. Will not give any further dosing at this time. Renal CrCl calculated as ~25ml/min using an adjusted body weight of 72.2kg. Another random level ordered for tomorrow AM. Pharmacy Service will continue to monitor and adjust dosing as required. Follow-Up Labs: Trough Vancomycin - random level 3.27.23 @0600
[2022-05-21] MEDS: 0.9% Saline Lock 10 ML Syringe IV (09:15)
[2022-05-21] MEDS: Chlorhexidine 15 ML PO ×2 (09:19→22:02)
[2022-05-21] MEDS: CHLORHEXIDINE GLUC 2% CLOTH 1 EACH TOWELETTE TOPICAL (10:15)
[2022-05-21] MEDS: Propofol 10MG/Ml 1,000 MG/100 ML Bottle 8.2 MG CONT INF ×2 (10:56→21:54)
[2022-05-21 11:50] LABS: Bedside Glucose 85 mg/dL (74-106)
[2022-05-21] MEDS: Juven (unflavored) Packet 1 PACKET GT (15:44)
[2022-05-21 17:55] LABS: Bedside Glucose 85 mg/dL (74-106)
--- NOTE | 2022-05-21 20:27 | PCM.HOSP.N ---
Hospitalist Note Patient with atrial fibrillation with RVR, rate 130s, ongoing since shift start per discussion with ICU staff. Off NEP currently but BP low range. Will attempt home dose metoprolol 12.5 mg x 1 and if not effective given VS would opt for amiodarone bolus/drip if needed.
[2022-05-21] MEDS: Mirtazapine 15 MG Tablet GT (21:53)
[2022-05-21] MEDS: Metoprolol Tartrate 25 MG Tablet 12.5 MG PO (22:01)
[2022-05-22] VITALS (37 sets, daily range): BP systolic 75–131; BP diastolic 38–97; PULSE 102–156; RESP 7–493; TEMP 36.9–37.7; O2SAT 15–99; BMI 34.8
[2022-05-22 00:31] LABS: Bedside Glucose 85 mg/dL (74-106)
[2022-05-22] MEDS: Ipratropium/Albuterol Sulfate 3 ML AMPUL.NEB INHALATION ×6 (02:32→22:22)
[2022-05-22 03:28] LABS: Absolute Lymphocyte Count 1.54 X10^3/uL (0.83-4.51); Absolute Neutrophil Count 5.5 X10^3/uL (2.0-7.7); Basophil# 0.03 X10^3/uL; Basophil% 0.4 % (0-1); Eosinophil# 0.22 X10^3/uL; Eosinophils% 2.8 % (0-5); Hematocrit 24.1 % (37-47); Lymphocyte # 1.54 X10^3/ul (0.83-4.51); Lymphocyte % 19.8 % (19-41); Mean Corpuscular Hgb 30.2 pg (27.0-32.0); Mean Corpuscular Volume 103.9 fL (81-99); Monocyte# 0.45 X10^3/uL; Monocyte% 5.8 % (0-10); NRBC Flagged by Analyzer 0 % (0-5); Neutrophil # 5.52 X10^3/uL (2.7-7.7); Neutrophil % 70.8 % (47-70); POSITIVE COUNT YES; POSITIVE MORPHOLOGY YES; Platelet Count 67 K/mm3 (150-450); RBC Distribution Width CV 18.9 % (11.6-14.6); Red Blood Count 2.32 M/mm3 (4.2-5.4); White Blood Count 7.8 K/mm3 (4.4-11.0)
[2022-05-22 03:32] LABS: Differential Indicated SCAN CRITERIA MET
[2022-05-22 03:50] LABS: Anisocytosis RARE; Platelet Estimate MOD DEC (ADEQ)
[2022-05-22 03:55] LABS: Anion Gap 7 (5-15); BUN 53 mg/dL (7-18); BUN/Creat Ratio 23.3 RATIO (10-20); Chloride 117 mmol/L (98-107); Creatinine, Serum 2.27 mg/dL (0.55-1.02); EST Glomerular Filtration Rate 23 mL/min (>60); Est Glom Filt Rate - Afr Amer 28 mL/min (>60); Estimated Creatinine Clearance 21.05 ml/min; Glucose 82 mg/dL (74-106); Sodium Level 151 mmol/L (136-145)
[2022-05-22 04:50] LABS: Vancomycin, Random Level 20.2 ug/mL (0.0-15.0)
[2022-05-22] MEDS: Levothyroxine 125 MCG Tablet GT (05:03)
[2022-05-22] MEDS: Heparin Injection (Vial) 5,000 UNIT/ML VIAL 5000 UNIT SC (05:03)
[2022-05-22] MEDS: Amiodarone 360 MG in Dextrose 5% Viaflo Bag 192.8 ML 16.7 MG CONT INF ×2 (05:21→17:51)
[2022-05-22 05:41] LABS: Bedside Glucose 90 mg/dL (74-106)
[2022-05-22] MEDS: Propofol 10MG/Ml 1,000 MG/100 ML Bottle 5.5 MG CONT INF (06:58)
--- NOTE | 2022-05-22 07:11 | PCM.RX.CS ---
Consult Pharmacy has been consulted to manage selected antiobiotic: Vancomycin Type of Consult: Follow-up Suspected Infection: Sepsis Prior Doses of Antibiotics Received/Current Regimen: 05/19/22 @ 1723 2000MG IV X 1 Labs: Sodium 151 mmol/L (136-145) H 05/22/22 03:10 Potassium 4.0 mmol/L (3.5-5.1) 05/22/22 03:10 Chloride 117 mmol/L (98-107) H 05/22/22 03:10 Carbon Dioxide 27.0 mmol/L (21.0-32.0) 05/22/22 03:10 Anion Gap 7 (5-15) 05/22/22 03:10 BUN 53 mg/dL (7-18) H 05/22/22 03:10 Creatinine 2.27 mg/dL (0.55-1.02) H 05/22/22 03:10 Est GFR (MDRD) Af Amer 28 mL/min (>60) L 05/22/22 03:10 Est GFR (MDRD) Non-Af 23 mL/min (>60) L 05/22/22 03:10 BUN/Creatinine Ratio 23.3 RATIO (10-20) H 05/22/22 03:10 Glucose 82 mg/dL (74-106) 05/22/22 03:10 Random Vancomycin 20.2 ug/mL (0.0-15.0) H 05/22/22 03:10 Microbiology: Microbiology 05/19/22 14:30 Blood Culture (Wb) - Port Blood Culture - Preliminary No growth in 48 hours. 05/19/22 13:45 Blood Culture (Wb) - Port Blood Culture - Preliminary No growth in 48 hours. 05/20/22 17:40 Sputum, Induced/Lukens Gram Stain - Final 05/20/22 17:40 Sputum, Induced/Lukens Respiratory Culture - Preliminary Gram negative marita 05/20/22 04:25 Urine Catheter - Knight Urine Culture - Preliminary Culture exhibits no growth. 05/19/22 22:20 Transtracheal Aspirate Gram Stain - Final 05/19/22 22:20 Transtracheal Aspirate Respiratory Culture - Preliminary GNR lactose capacity planning manager 05/20/22 04:25 Urine Catheter - [facility] Legionella Antigen - Final 05/20/22 04:25 Urine Catheter - [facility] Streptococcus pneumoniae Antigen (M - Final 05/19/22 22:20 Mucosa - Nasopharyngeal Respiratory Panel (PCR) - Final Estimated Creatinine Clearance: 73KG Goal Trough: 15-20 mcg/mL Pharmacy Plan for Drug Dosing: Pharmacy Service will continue to monitor and adjust dosing as required. Labs to be done on [date and time ordered]: Random Vancomycin level @ 1500
--- NOTE | 2022-05-22 07:19 | PCM.PN.INT ---
Assessment & Plan Assessment/Plan (1) Septic shock: PLAN: Plan RECOMMENDATIONS: 1. Continue assist-control mode mechanical ventilation. Wean FiO2 and PEEP to maintain saturations at or above 90%. 2. Continue empiric broad-spectrum antimicrobials pending species and sensitivities. 3. Continue Levophed to maintain a mean arterial pressure at or above 65 mmHg. 4. Continue to monitor H&H daily and transfuse if hemoglobin drops below 7 g/dL. 5. Continue appropriate ICU prophylaxis. 6. Ongoing goals of care discussion with the patient's family. IMPRESSIONS: 1. Septic shock The patient presented with sepsis of unclear etiology with acute sepsis related organ dysfunction as evidenced by decompensated respiratory failure requiring intubation and invasive mechanical ventilatory support along with acute kidney injury. Patient is now growing gram-negative's in her sputum. We will discontinue vancomycin given concerns of worsening renal function with gram-negative's growing in blood cultures. The patient ultimately required the initiation of vasopressor support to maintain hemodynamic stability. Given her history of RV dysfunction and pulmonary hypertension, recommend discontinuation of continuous IV fluids. Continue Levophed to maintain a mean arterial pressure at or above 65 mmHg. Continue empiric broad-spectrum antimicrobials, while awaiting infectious work-up. 2. Encephalopathy Most likely related to acute CO2 retention. It is unclear as to whether the patient had access to a BiPAP at her nursing facility and whether or not it was being utilized. 3. Acute on chronic combined respiratory failure While underlying pneumonia is a possibility, the patient's chest imaging seems far more concerning for decompensated heart failure with evidence of pleural effusions. However, her current utilization of vasopressor support will preclude the use of diuretics at this time. Patient currently on Zosyn therapy with gram-negative's in the sputum. Plan to continue scheduled bronchodilators over concerns for underlying obstructive lung disease. 4. Acute on chronic kidney disease Slowly improving, but patient is developing hypernatremia and hyperchloremia. We will initiate tube feeds with free water flushes. Most likely prerenal in etiology in the setting of #1. Creatinine has improved. We will plan to continue to monitor urine output for now. No current indication for renal replacement therapy. 5. 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 Continue to monitor H&H daily. Transfuse if hemoglobin drops below 7 g/dL. Continue PPI therapy as ordered. Sutures on AKA appear to be holding at this time despite anasarca. TIME: 37 minutes of critical care time, independent of procedures, was spent addressing the patient septic shock, encephalopathy, acute on chronic combined respiratory failure, acute on chronic kidney disease, review of all data and collaboration with the care team. Subjective Subjective Patient was some hemodynamic issues overnight. Patient developed A-fib with RVR and hypotension. Patient currently on amiodarone with some improvement in heart rate. Patient did not have a spontaneous awakening and breathing trial secondary to cardiac instability. No active blood loss reported by nursing. Patient has not had a bowel movement since admission. Objective Data Objective Data Vital Signs: Vital Signs Temp Pulse Resp BP Pulse Ox O2 Del Method O2 Flow Rate 37.0 C 106 H 14 123/70 H 97 Mechanical Ventilator 15 05/22/22 06:00 05/22/22 06:00 05/22/22 06:00 05/22/22 06:00 05/22/22 06:00 05/22/22 06:00 05/20/22 09:00 FiO2 35 05/22/22 06:00 Oxygen Flow Rate (L/min) 15 Oxygen Delivery Method Mechanical Ventilator Weight: 94.8 kg Body Mass Index (BMI) 34.8 Intake & Output: Intake and Output for Last 24 Hours 05/20/22 05/21/22 05/22/22 23:59 23:59 23:59 Intake Total 1887.88 / 1903.08 862.50 / 872.83 576.48 / 576.48 Output Total 1000 / 1200 1330 / 1555 525 / 525 Balance 887.88 / 703.08 -467.50 / -682.17 51.48 / 51.48 Lab / Micro Data Attestation: I reviewed the patient's lab results. Result Diagrams: 05/22/22 03:10 05/22/22 03:10 Labs: Laboratory Results - last 24 hr 05/21/22 11:32: POC Glucose 85 05/21/22 17:34: POC Glucose 85 05/22/22 00:07: POC Glucose 85 05/22/22 03:10: WBC 7.8, RBC 2.32 L, Hgb 7.0 L, Hct 24.1 L, MCV 103.9 H, MCH 30.2, MCHC 29.0 L, RDW Std Deviation 71.0 H, RDW Coeff of Magen 18.9 H, Plt Count 67 L, MPV 12.0, Immature Gran % (Auto) 0.400, Neut % (Auto) 70.8 H, Lymph % (Auto) 19.8, [place] % (Auto) 5.8, Eos % (Auto) 2.8, Baso % (Auto) 0.4, Absolute Neuts (auto) 5.5, Absolute Lymphs (auto) 1.54, Nucleated RBC % 0, Platelet Estimate MOD DEC, Anisocytosis RARE 05/22/22 03:10: Sodium 151 H, Potassium 4.0, Chloride 117 H, Carbon Dioxide 27.0, Anion Gap 7, BUN 53 H, Creatinine 2.27 H, Estim Creat Clear Calc 21.05, Est GFR (MDRD) Af Amer 28 L, Est GFR (MDRD) Non-Af 23 L, BUN/Creatinine Ratio 23.3 H, Glucose 82, Calcium 8.0 L 05/22/22 03:10: Random Vancomycin 20.2 H 05/22/22 05:12: POC Glucose 90 Micro: Microbiology 05/19/22 14:30 Blood Culture (Wb) - Port Blood Culture - Preliminary No growth in 48 hours. 05/19/22 13:45 Blood Culture (Wb) - Port Blood Culture - Preliminary No growth in 48 hours. 05/20/22 17:40 Sputum, Induced/Lukens Gram Stain - Final 05/20/22 17:40 Sputum, Induced/Lukens Respiratory Culture - Preliminary Gram negative marita 05/20/22 04:25 Urine Catheter - Knight Urine Culture - Preliminary Culture exhibits no growth. 05/19/22 22:20 Transtracheal Aspirate Gram Stain - Final 05/19/22 22:20 Transtracheal Aspirate Respiratory Culture - Preliminary GNR lactose program development specialist 05/20/22 04:25 Urine Catheter - [facility] Legionella Antigen - Final 05/20/22 04:25 Urine Catheter - [facility] Streptococcus pneumoniae Antigen (M - Final 05/19/22 22:20 Mucosa - Nasopharyngeal Respiratory Panel (PCR) - Final Rhythm Strip Rhythm Strip: A-fib Rate: 104 Ectopy: None Physical Exam Const Constitutional Narrative: Intubated, sedated and mechanically ventilated. No ventilator dyssynchrony. RASS -2. Anasarca. HEENT normocephalic and head/scalp atraumatic Eyes PERRL and conjunctivae normal Neck supple General: trachea midline and CVC in place Chest inspection of chest normal Resp Auscultation: diminished lung sounds; Negative for rales, rhonchi or wheezes Cardio S1 normal heart sound, S2 normal heart sound and no murmurs Rate: tachycardic Rhythm: abnormal rhythm GI normal to inspection, nondistended, normoactive bowel sounds Extremity Extremity Narrative: Right foot wrapped with Kerlix dressing. Left AKA. Mild erythema around sutures, but no exudate or induration Skin General Skin Exam: venous stasis and dermatitis Neuro Sensorium / Orientation: sedated on vent Psych Mood & Affect: flat affect Charges/Coding Procedures Hospitalists Procedures: [id number] Critial Care 1st Hr
[2022-05-22] MEDS: Chlorhexidine 15 ML PO ×2 (07:48→21:16)
[2022-05-22] MEDS: Paroxetine 20 MG Tablet GT (07:51)
[2022-05-22] MEDS: Juven (unflavored) Packet 1 PACKET GT ×2 (07:51→17:33)
[2022-05-22] MEDS: Ferrous Sulfate 325 MG Tablet GT (07:51)
[2022-05-22] MEDS: Aspirin 81 MG TAB.CHEW GT (07:51)
[2022-05-22] MEDS: Polyethylene Glycol 3350 17 GM PACKET PO (07:55)
[2022-05-22] MEDS: Senna/Docusate Sodium 1 Tablet 2 TABLET PO ×2 (07:55→21:16)
--- NOTE | 2022-05-22 10:20 | PCM.PN.HOSP ---
Reason for Visit Reason for Visit: Diagnoses Sepsis, unspecified organism (05/19/22) Pneumonia, unspecified organism (05/19/22) Acute and chronic respiratory failure with hypoxia (05/19/22) Severe sepsis without septic shock (05/19/22) Severe sepsis with septic shock (05/19/22) Subjective Subjective In bed, intubated and sedated. Heart rate 119, 97% on present vent settings. Remains on levo and amnio drip. Antibiotics changed to meropenem Objective Data Objective Data Vital Signs: Vital Signs Temp Pulse Resp BP Pulse Ox O2 Del Method O2 Flow Rate 98.6 F 118 H 10 L 123/70 H 97 Mechanical Ventilator 15 05/22/22 06:00 05/22/22 08:00 05/22/22 08:00 05/22/22 06:00 05/22/22 08:00 05/22/22 08:00 05/20/22 09:00 FiO2 35 05/22/22 08:00 Oxygen Flow Rate (L/min) 15 Oxygen Delivery Method Mechanical Ventilator Weight: 94.8 kg Body Mass Index (BMI) 34.8 Intake & Output: Intake and Output for Last 24 Hours 05/20/22 05/21/22 05/22/22 23:59 23:59 23:59 Intake Total 1887.88 / 1903.08 862.50 / 872.83 651.48 / 651.48 Output Total 1000 / 1200 1330 / 1555 775 / 775 Balance 887.88 / 703.08 -467.50 / -682.17 -123.52 / -123.52 Lab / Micro Data Result Diagrams: 05/22/22 03:10 05/22/22 03:10 Labs: Laboratory Results - last 24 hr 05/21/22 11:32: POC Glucose 85 05/21/22 17:34: POC Glucose 85 05/22/22 00:07: POC Glucose 85 05/22/22 03:10: WBC 7.8, RBC 2.32 L, Hgb 7.0 L, Hct 24.1 L, MCV 103.9 H, MCH 30.2, MCHC 29.0 L, RDW Std Deviation 71.0 H, RDW Coeff of Magen 18.9 H, Plt Count 67 L, MPV 12.0, Immature Gran % (Auto) 0.400, Neut % (Auto) 70.8 H, Lymph % (Auto) 19.8, [place] % (Auto) 5.8, Eos % (Auto) 2.8, Baso % (Auto) 0.4, Absolute Neuts (auto) 5.5, Absolute Lymphs (auto) 1.54, Nucleated RBC % 0, Platelet Estimate MOD DEC, Anisocytosis RARE 05/22/22 03:10: Sodium 151 H, Potassium 4.0, Chloride 117 H, Carbon Dioxide 27.0, Anion Gap 7, BUN 53 H, Creatinine 2.27 H, Estim Creat Clear Calc 21.05, Est GFR (MDRD) Af Amer 28 L, Est GFR (MDRD) Non-Af 23 L, BUN/Creatinine Ratio 23.3 H, Glucose 82, Calcium 8.0 L 05/22/22 03:10: Random Vancomycin 20.2 H 05/22/22 05:12: POC Glucose 90 Micro: Microbiology 05/20/22 04:25 Urine Catheter - Knight Urine Culture - Final Culture exhibits no growth. 05/19/22 22:20 Transtracheal Aspirate Gram Stain - Final 05/19/22 22:20 Transtracheal Aspirate Respiratory Culture - Preliminary Escherichia coli 05/19/22 14:30 Blood Culture (Wb) - Port Blood Culture - Preliminary No growth in 48 hours. 05/19/22 13:45 Blood Culture (Wb) - Port Blood Culture - Preliminary No growth in 48 hours. 05/20/22 17:40 Sputum, Induced/Lukens Gram Stain - Final 05/20/22 17:40 Sputum, Induced/Lukens Respiratory Culture - Preliminary Gram negative marita 05/20/22 04:25 Urine Catheter - Knight Legionella Antigen - Final 05/20/22 04:25 Urine Catheter - Knight Streptococcus pneumoniae Antigen (M - Final 05/19/22 22:20 Mucosa - Nasopharyngeal Respiratory Panel (PCR) - Final Rhythm Strip Rhythm Strip: A-fib Rate: 104 Ectopy: None Physical Exam Narrative General: Intubated and sedated HEENT: Atraumatic, normocephalic Eyes: Did not spontaneously open eyes on exam Neck: Supple Respiratory: Mechanically ventilated, no overt rhonchi or wheezes Cardiovascular: Tachycardic GI: Soft, nontender, nondistended Extremities: 1-2+ pitting edema in bilateral upper extremities, right lower extremity with trace to 1+ pitting edema Musculoskeletal: Left AKA noted Neuro: Unable to participate in neuro exam Skin: Has some purpura on upper extremities Psych: Unable to cooperate due to intubated sedated Assessment & Plan Assessment/Plan (1) Septic shock: PLAN: Plan #Septic shock -unclear etiology -cultures pending, sputum culture with 1+ gram-negative rods -cont broad spectrum abx pending final culture results -05/22: Tracheal aspirate growing ESBL, antibiotics changed to Merrem, wean levo as tolerated. Vancomycin discontinued #Acute on chronic combined resp failure/RV dysfunction/pulm HTN/HFpEF -requiring intubation and mech ventilation -Pneumonia versus decompensated heart failure -Imaging demonstrates pleural effusion but given vasopressor support diuretics are held -Continue bronchodilators and broad-spectrum antibiotics -05/22: Remains intubated and mechanically ventilated #Hypernatremia and hyperchloremia -Free water flushes and tube feeds started #MIKE on CKD -Likely prerenal secondary to septic shock -I's and O's -05/22: Slightly improved today. Tube feeds being initiated with free water #Encephalopathy -likely 2/2 CO2 retention -Presently intubated #Type 2 diabetes mellitus -Continue insulin sliding scale #Atrial fibrillation -Eliquis held, Cardizem and metoprolol held due to septic shock -05/22: Amiodarone drip #Hypothyroidism -Synthroid #Coronary artery disease status post stenting -on asa, statin not on home med list, ultimately will benefit if no contraindication #Dry gangrene of left leg status post recent AKA -Continue to monitor #DVT ppx: SCDs Coco Romero MD Time spent in the patient's overall evaluation,decision-making process, review of diagnostic data, adjustment of management, discussion with other providers, nursing nursing and ancillary staff involved in patient's care documentation, 60 minutes Charges/Coding Visit Charges Inpatient E&M: 97785 Subs Hosp L2
[2022-05-22] MEDS: Vital AF 1.2 Cal Liquid 1,000 ML 15 ML GT (11:52)
[2022-05-22 12:21] LABS: Bedside Glucose 108 mg/dL (74-106)
--- NOTE | 2022-05-22 14:17 | CON.PCM.ID_ITS ---
Assessment & Plan Assessment/Plan (1) Septic shock: PLAN: Septic shock due to ESBL ecoli pneumonia - now on meropenem. Remains on vent and pressor. MIKE improving. Increase luis to 1gm q12h if GFR continues to improve. Will follow, thank you (2) MIKE (acute kidney injury): (3) Anasarca: HPI Consult Data Date of Consult: 05/22/22 HPI Narrative HPI Narrative: SONA WILSON, is a 67 F who presented 05/19 from [facility] with confusion, swelling, hypotension, hypothermia. Has h/o copd, pulm htn, chronic resp failure. Admitted to icu on vanc/zosyn. Remains on vent and pressors. Sputum now with ESBL ecoli, abx changed to meropenem. Temps have improved. ROS and history unobtainable from pt due to intubation and mental status. [facility] Medical History Acute cervical myofascial strain Acute on chronic respiratory failure with hypoxemia Acute respiratory failure with hypoxia Amputated toe of left foot Anemia Anemia Asthma Atherosclerotic heart disease of [place] coronary artery without angina pectoris Atrial fibrillation Atrial fibrillation Atrial fibrillation with rapid ventricular response CAD (coronary artery disease) CHF (congestive heart failure) Chronic congestive heart failure Chronic heart failure with preserved ejection fraction (HFpEF) Chronic heel ulcer Chronic kidney disease (CKD) stage G3b/A1, moderately decreased glomerular filtration rate (GFR) between 30-44 mL/min/1.73 square meter and albuminuria creatinine ratio less than 30 mg/g Chronic respiratory failure with hypoxia Chronic respiratory failure with hypoxia, on home oxygen therapy Chronic ulcer of great toe of left foot Closed head injury Congestive heart failure (CHF) COPD (chronic obstructive pulmonary disease) Current use of insulin Debility Decubitus ulcer of dorsum of foot, stage 2 Decubitus ulcer of left heel, stage 2 Decubitus ulcer of left heel, stage 3 Decubitus ulcer, heel, left, unstageable Depression Diabetes mellitus with diabetic polyneuropathy Diabetes type 2, controlled Diabetic foot ulcers Diverticulitis Dry gangrene Essential hypertension Former smoker History of amputation of left great toe History of non-ST elevation myocardial infarction (NSTEMI) (02/24/17) Hyperlipidemia Hypoglycemia due to type 1 diabetes mellitus Hypothyroid Morbid obesity Multiple wounds Myocardial infarct Non-rheumatic tricuspid valve insufficiency Nondisplaced fracture of distal phalanx of right great toe, initial encounter for closed fracture Nonrheumatic mitral (valve) insufficiency Obesity Obstructive sleep apnea On home O2 Renal insufficiency Secondary pulmonary arterial hypertension Thrombocytopenia Type 2 diabetes mellitus Vitamin D deficiency Home Medications aspirin 81 mg tablet,delayed release (Adult Aspirin Regimen) 81 mg PO DAILY HEART HEALTH 05/17/21 [History Last Taken 04/25/22 08:30] levothyroxine 100 mcg tablet (Synthroid) 125 mcg PO DAILY THYROID 12/13/21 [History Last Taken 04/26/22 06:00] montelukast 10 mg tablet 10 mg PO QHS ALLERGIES 12/13/21 [History Last Taken 04/25/22 20:58] sennosides 8.6 mg-docusate sodium 50 mg tablet (Senna-S) 1 tab PO BID STOOL SOFTNER 12/13/21 [History Last Taken 04/25/22 20:58] trazodone 100 mg tablet 150 mg PO QHS SLEEP 12/13/21 [History Last Taken 04/25/22 20:58] albuterol sulfate 90 mcg/actuation aerosol inhaler 2 puff inhalation Q6H PRN Shortness Of Breath 12/19/21 [History Last Taken Unknown] ferrous sulfate 325 mg (65 mg iron) tablet (FeroSul) 325 mg PO DAILY ANEMIA 12/28/21 [History Last Taken 04/25/22 11:00] insulin lispro 100 unit/mL subcutaneous pen (Humalog KwikPen (U-100) Insulin) 10 unit subcut TIDAC DIABETES 12/28/21 [History Last Taken 04/25/22 20:40] nystatin 100,000 unit/gram topical powder (Nyamyc) 1 applic topical TID IRRITATION 12/28/21 [History Last Taken 04/25/22 20:58] omeprazole 40 mg capsule,delayed release 40 mg PO BID GERD 12/28/21 [History Last Taken 04/25/22 20:58] polyethylene glycol 3350 17 gram oral powder packet 17 g PO DAILY CONSTIPATION 12/28/21 [History Last Taken 04/25/22 08:30] paroxetine HCl 20 mg tablet (Paxil) 20 mg PO DAILY MOOD 01/12/22 [History Last Taken 04/26/22 08:30] insulin detemir U-100 100 unit/mL (3 mL) subcutaneous pen (Levemir FlexTouch U- 100 Insulin) 25 unit (0.25 mL) subcut QHS blood sugar #15 mL 02/24/22 [Rx Last Taken 04/24/22 19:30] acetaminophen 325 mg tablet (Tylenol) 650 mg PO Q6H PRN PAIN/FEVER 04/26/22 [History Last Taken 04/26/22 06:00] apixaban 5 mg tablet (Eliquis) 5 mg PO BID BLOOD THINNER 04/26/22 [History Last Taken 04/26/22 08:30] arginine 7 gram-glutam 7 gram-CaHMB 1.5 laix-cvmxe-zs-min oral pwd pkt (Say (with collagen)) 1 packet PO BID WOUND HEALING 04/26/22 [History Last Taken 04/25/22 11:00] gabapentin 300 mg capsule 300 mg PO TID NERVE PAIN 04/26/22 [History Last Taken 04/25/22 13:30] mirtazapine 15 mg tablet 15 mg PO QHS MOOD 04/26/22 [History Last Taken 04/25/22 20:58] potassium chloride 20 mEq tablet,extended release(part/cryst) (Klor-Con M) 20 meq PO TID SUPPLEMENT 04/26/22 [History Last Taken 04/26/22 06:00] bumetanide 0.5 mg tablet 1 mg PO TID #0 tabs 05/10/22 [Rx Last Taken Unknown] diltiazem HCl 60 mg tablet 60 mg PO Q6 #0 tabs 05/10/22 [Rx Last Taken Unknown] metoprolol tartrate 25 mg tablet 12.5 mg PO BID #0 tabs 05/10/22 [Rx Last Taken Unknown] Allergy/AdvReac Type Severity Reaction Status Date / Time doxycycline Allergy NEEDS Verified 05/19/22 11:06 FOLLOW-UP latex Allergy NEEDS Verified 05/19/22 11:06 FOLLOW-UP Sulfa (Sulfonamide Allergy Anaphylaxis Verified 05/19/22 11:06 Antibiotics) sulfur dioxide Allergy Anaphylaxis Verified 05/19/22 11:06 oxycodone AdvReac Other Verified 05/19/22 11:06 Family History Grandmother Diabetes Mother Heart disease Surgical History H/O right heart catheterization History of cataract surgery History of coronary artery stent placement (02/24/17) History of heart artery stent Tubal ligation status Social History household members: none housing: other details: [facility]. Smoking Status: Former smoker how long ago did patient quit smokin alcohol intake: former year quit: 1999 substance use type: does not use caffeine: Yes Type: carbonated beverages and tea Physical Exam Const Constitutional Narrative: intubated/sedated General Appearance: lethargic HEENT normocephalic and head/scalp atraumatic Eyes PERRL Neck supple and No nodes Resp Effort and Inspection: mechanically ventilated Auscultation: rhonchi Cardio Rate: tachycardic GI soft to palpation, non-tender and non-distended Extremity General Extremity: edema Skin no rashes or lesions noted Neuro Neuro Narrative: not following commands Lab / Micro Data Attestation: I reviewed the patient's lab results. Result Diagrams: 05/22/22 03:10 05/22/22 03:10 Labs: Laboratory Results - last 24 hr 05/21/22 17:34: POC Glucose 85 05/22/22 00:07: POC Glucose 85 05/22/22 03:10: WBC 7.8, RBC 2.32 L, Hgb 7.0 L, Hct 24.1 L, MCV 103.9 H, MCH 30.2, MCHC 29.0 L, RDW Std Deviation 71.0 H, RDW Coeff of Magen 18.9 H, Plt Count 67 L, MPV 12.0, Immature Gran % (Auto) 0.400, Neut % (Auto) 70.8 H, Lymph % (Auto) 19.8, [place] % (Auto) 5.8, Eos % (Auto) 2.8, Baso % (Auto) 0.4, Absolute Neuts (auto) 5.5, Absolute Lymphs (auto) 1.54, Nucleated RBC % 0, Platelet Estimate MOD DEC, Anisocytosis RARE 05/22/22 03:10: Sodium 151 H, Potassium 4.0, Chloride 117 H, Carbon Dioxide 27.0, Anion Gap 7, BUN 53 H, Creatinine 2.27 H, Estim Creat Clear Calc 21.05, Est GFR (MDRD) Af Amer 28 L, Est GFR (MDRD) Non-Af 23 L, BUN/Creatinine Ratio 23.3 H, Glucose 82, Calcium 8.0 L 05/22/22 03:10: Random Vancomycin 20.2 H 05/22/22 05:12: POC Glucose 90 05/22/22 11:30: POC Glucose 108 H Micro: Microbiology 05/20/22 04:25 Urine Catheter - Knight Urine Culture - Final Culture exhibits no growth. 05/19/22 22:20 Transtracheal Aspirate Gram Stain - Final 05/19/22 22:20 Transtracheal Aspirate Respiratory Culture - Preliminary Escherichia coli 05/19/22 14:30 Blood Culture (Wb) - Port Blood Culture - Preliminary No growth in 48 hours. 05/19/22 13:45 Blood Culture (Wb) - Port Blood Culture - Preliminary No growth in 48 hours. 05/20/22 17:40 Sputum, Induced/Lukens Gram Stain - Final 05/20/22 17:40 Sputum, Induced/Lukens Respiratory Culture - Preliminary Gram negative marita Rhythm Strip Rhythm Strip: A-fib Rate: 104 Ectopy: None
[2022-05-22 17:55] LABS: Bedside Glucose 129 mg/dL (74-106)
[2022-05-22] MEDS: Mirtazapine 15 MG Tablet GT (21:17)
[2022-05-23] VITALS (32 sets, daily range): BP systolic 65–138; BP diastolic 51–86; PULSE 94–123; RESP 8–111; TEMP 36.9–37.3; O2SAT 92–100; BMI 35.3
[2022-05-23] MEDS: Propofol 10MG/Ml 1,000 MG/100 ML Bottle 5.5 MG CONT INF ×3 (01:07→21:45)
[2022-05-23] MEDS: Insulin Lispro 100 UNIT/ML INSULN.PEN SC ×5 (01:13→23:26)
[2022-05-23 01:30] LABS: Bedside Glucose 159 mg/dL (74-106)
[2022-05-23] MEDS: Ipratropium/Albuterol Sulfate 3 ML AMPUL.NEB INHALATION ×6 (03:05→23:20)
[2022-05-23] MEDS: Amiodarone 360 MG in Dextrose 5% Viaflo Bag 192.8 ML 16.7 MG CONT INF ×2 (04:13→16:18)
[2022-05-23] MEDS: 0.9% Saline Lock 10 ML Syringe IV (04:18)
[2022-05-23 04:31] LABS: Absolute Lymphocyte Count 1.21 X10^3/uL (0.83-4.51); Basophil# 0.04 X10^3/uL; Basophil% 0.4 % (0-1); Eosinophil# 0.39 X10^3/uL; Eosinophils% 4.2 % (0-5); Hematocrit 24.9 % (37-47); Hemoglobin 7.4 g/dL (12.0-15.0); Lymphocyte # 1.21 X10^3/ul (0.83-4.51); Lymphocyte % 12.9 % (19-41); Mean Corp Hgb Conc 29.7 g/dL (32-36); Mean Corpuscular Hgb 30.7 pg (27.0-32.0); Mean Corpuscular Volume 103.3 fL (81-99); Mean Platelet Vol. 11.1 fl (6.2-12.0); Monocyte# 0.64 X10^3/uL; Monocyte% 6.8 % (0-10); NRBC Flagged by Analyzer 0 % (0-5); Neutrophil # 7.02 X10^3/uL (2.7-7.7); Neutrophil % 75.2 % (47-70); POSITIVE COUNT YES; POSITIVE MORPHOLOGY YES; Platelet Count 78 K/mm3 (150-450); RBC Distribution Width CV 18.5 % (11.6-14.6); RBC Distribution Width SD 70.4 fl (35.1-43.9); Red Blood Count 2.41 M/mm3 (4.2-5.4); White Blood Count 9.4 K/mm3 (4.4-11.0)
[2022-05-23 04:40] LABS: Differential Indicated SCAN CRITERIA MET
[2022-05-23 04:46] LABS: Anisocytosis 2+; Differential Comment SCANNED; Hypochromasia 1+; Macrocytosis 2+
[2022-05-23 04:49] LABS: Anion Gap 7 (5-15); BUN 54 mg/dL (7-18); BUN/Creat Ratio 30.5 RATIO (10-20); Calcium,Total 8.3 mg/dL (8.5-10.1); Chloride 116 mmol/L (98-107); Creatinine, Serum 1.77 mg/dL (0.55-1.02); EST Glomerular Filtration Rate 31 mL/min (>60); Est Glom Filt Rate - Afr Amer 37 mL/min (>60); Glucose 190 mg/dL (74-106); Potassium 3.8 mmol/L (3.5-5.1); Sodium Level 148 mmol/L (136-145)
[2022-05-23] MEDS: Levothyroxine 125 MCG Tablet GT (06:35)
[2022-05-23 06:55] LABS: Bedside Glucose 158 mg/dL (74-106)
--- NOTE | 2022-05-23 07:13 | PCM.PN.HOSP ---
Reason for Visit Reason for Visit: Diagnoses Sepsis, unspecified organism (05/19/22) Pneumonia, unspecified organism (05/19/22) Acute and chronic respiratory failure with hypoxia (05/19/22) Acute kidney failure, unspecified (05/19/22) Generalized edema (05/19/22) Severe sepsis without septic shock (05/19/22) Severe sepsis with septic shock (05/19/22) Subjective Subjective Laying in bed, intubated and sedated, remains on Levophed Objective Data Objective Data Vital Signs: Vital Signs Temp Pulse Resp BP Pulse Ox O2 Del Method O2 Flow Rate 99.1 F 112 H 14 122/72 H 95 Mechanical Ventilator 15 05/23/22 05:00 05/23/22 06:00 05/23/22 06:00 05/23/22 06:00 05/23/22 06:00 05/23/22 06:00 05/20/22 09:00 FiO2 30 05/23/22 06:00 Oxygen Flow Rate (L/min) 15 Oxygen Delivery Method Mechanical Ventilator Weight: 96.2 kg Body Mass Index (BMI) 35.3 Intake & Output: Intake and Output for Last 24 Hours 05/21/22 05/22/22 05/23/22 23:59 23:59 23:59 Intake Total 862.50 / 872.83 1886.27 / 1913.67 1053.06 / 1053.06 Output Total 1330 / 1555 2575 / 2575 500 / 500 Balance -467.50 / -682.17 -688.73 / -661.33 553.06 / 553.06 Lab / Micro Data Result Diagrams: 05/23/22 04:20 05/23/22 04:20 Labs: Laboratory Results - last 24 hr 05/22/22 11:30: POC Glucose 108 H 05/22/22 17:27: POC Glucose 129 H 05/23/22 01:10: POC Glucose 159 H 05/23/22 04:20: WBC 9.4, RBC 2.41 L, Hgb 7.4 L, Hct 24.9 L, MCV 103.3 H, MCH 30.7, MCHC 29.7 L, RDW Std Deviation 70.4 H, RDW Coeff of Magen 18.5 H, Plt Count 78 L, MPV 11.1, Immature Gran % (Auto) 0.500, Neut % (Auto) 75.2 H, Lymph % (Auto) 12.9 L, [place] % (Auto) 6.8, Eos % (Auto) 4.2, Baso % (Auto) 0.4, Absolute Neuts (auto) 7.0, Absolute Lymphs (auto) 1.21, Nucleated RBC % 0, Differential Comment SCANNED, Hypochromasia 1+, Anisocytosis 2+, Macrocytosis 2+ 05/23/22 04:20: Sodium 148 H, Potassium 3.8, Chloride 116 H, Carbon Dioxide 25.0, Anion Gap 7, BUN 54 H, Creatinine 1.77 H, Estim Creat Clear Calc 27.00, Est GFR (MDRD) Af Amer 37 L, Est GFR (MDRD) Non-Af 31 L, BUN/Creatinine Ratio 30.5 H, Glucose 190 H, Calcium 8.3 L 05/23/22 06:29: POC Glucose 158 H Micro: Microbiology 05/20/22 04:25 Urine Catheter - Knight Urine Culture - Final Culture exhibits no growth. 05/19/22 22:20 Transtracheal Aspirate Gram Stain - Final 05/19/22 22:20 Transtracheal Aspirate Respiratory Culture - Preliminary Escherichia coli 05/19/22 14:30 Blood Culture (Wb) - Port Blood Culture - Preliminary No growth in 48 hours. 05/19/22 13:45 Blood Culture (Wb) - Port Blood Culture - Preliminary No growth in 48 hours. 05/20/22 17:40 Sputum, Induced/Lukens Gram Stain - Final 05/20/22 17:40 Sputum, Induced/Lukens Respiratory Culture - Preliminary Gram negative marita 05/20/22 04:25 Urine Catheter - Knight Legionella Antigen - Final 05/20/22 04:25 Urine Catheter - Knight Streptococcus pneumoniae Antigen (M - Final 05/19/22 22:20 Mucosa - Nasopharyngeal Respiratory Panel (PCR) - Final Rhythm Strip Rhythm Strip: A-fib Rate: 104 Ectopy: None Physical Exam Narrative General: Intubated and sedated HEENT: Atraumatic, normocephalic Eyes: Did not spontaneously open eyes on exam Neck: Supple Respiratory: Mechanically ventilated, respond laterally Cardiovascular: Tachycardic GI: Soft, nondistended Extremities: 1+ pitting edema in bilateral upper extremities, right lower extremity with trace to 1+ pitting edema Musculoskeletal: Left AKA noted Neuro: Unable to participate in neuro exam Skin: Has some purpura on upper extremities Psych: Unable to cooperate due to intubated sedated Assessment & Plan Assessment/Plan (1) Septic shock: PLAN: Plan #Septic shock -unclear etiology -cultures pending, sputum culture with 1+ gram-negative rods -cont broad spectrum abx pending final culture results -05/22: Tracheal aspirate growing ESBL, antibiotics changed to Merrem, wean levo as tolerated. Vancomycin discontinued -05/23: Continued on Merrem, still on levo. ID following, ESBL in tracheal aspirate, blood cultures from 05/19 no growth to date #Acute on chronic combined resp failure/RV dysfunction/pulm HTN/HFpEF -requiring intubation and mech ventilation -Pneumonia versus decompensated heart failure -Imaging demonstrates pleural effusion but given vasopressor support diuretics are held -Continue bronchodilators and broad-spectrum antibiotics -05/22: Remains intubated and mechanically ventilated 05/23: Remains intubated and ventilated, ICU managing #Hypernatremia and hyperchloremia -Free water flushes and tube feeds started -05/23: Somewhat improved today #MIKE on CKD -Likely prerenal secondary to septic shock -I's and O's -05/22: Slightly improved today. Tube feeds being initiated with free water -05/23: Creatinine went from 2.27 down to 1.77, improving #Encephalopathy -likely 2/2 CO2 retention -Presently intubated #Type 2 diabetes mellitus -Continue insulin sliding scale #Atrial fibrillation -Eliquis held, Cardizem and metoprolol held due to septic shock -05/22: Amiodarone drip #Hypothyroidism -Synthroid #Coronary artery disease status post stenting -on asa, statin not on home med list, ultimately will benefit if no contraindication #Dry gangrene of left leg status post recent AKA -Continue to monitor #DVT ppx: SCDs Coco Romero MD Time spent in the patient's overall evaluation,decision-making process, review of diagnostic data, adjustment of management, discussion with other providers, nursing nursing and ancillary staff involved in patient's care documentation, 30 minutes Charges/Coding Visit Charges Inpatient E&M: 42563 Subs Hosp L2
--- NOTE | 2022-05-23 07:27 | PCM.PN.INT ---
Assessment & Plan Assessment/Plan (1) Septic shock: PLAN: Plan RECOMMENDATIONS: 1. Continue assist-control mode mechanical ventilation. Wean FiO2 and PEEP to maintain saturations at or above 90%. 2. Continue empiric broad-spectrum antimicrobials pending species and sensitivities. 3. Wean Levophed as tolerated. Possible diuretics if blood pressure improves 4. Continue to monitor H&H daily and transfuse if hemoglobin drops below 7 g/dL. 5. Continue appropriate ICU prophylaxis. 6. Ongoing goals of care discussion with the patient's family. No family visited yesterday IMPRESSIONS: 1. Septic shock The patient presented with sepsis of unclear etiology with acute sepsis related organ dysfunction as evidenced by decompensated respiratory failure requiring intubation and invasive mechanical ventilatory support along with acute kidney injury. Patient is now growing ESBL E. coli in her sputum. Antibiotics were changed to meropenem. The patient ultimately required the initiation of vasopressor support to maintain hemodynamic stability. If this improves, patient would benefit from diuretics. Patient has already had IV fluids discontinued. 2. Encephalopathy Most likely related to acute CO2 retention. It is unclear as to whether the patient had access to a BiPAP at her nursing facility and whether or not it was being utilized. 3. Acute on chronic combined respiratory failure While underlying pneumonia is a possibility, the patient's chest imaging seems far more concerning for decompensated heart failure with evidence of pleural effusions. However, her current utilization of vasopressor support will preclude the use of diuretics at this time. Patient currently on meropenem therapy with ESBL in the sputum. Plan to continue scheduled bronchodilators over concerns for underlying obstructive lung disease. 4. Acute on chronic kidney disease Slowly improving, but patient is developing hypernatremia and hyperchloremia. We will initiate tube feeds with free water flushes. Most likely prerenal in etiology in the setting of #1. Creatinine has improved. We will plan to continue to monitor urine output for now. No current indication for renal replacement therapy. 5. 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 Continue to monitor H&H daily. Transfuse if hemoglobin drops below 7 g/dL. Continue PPI therapy as ordered. Sutures on AKA appear to be holding at this time despite anasarca. TIME: 35 minutes of critical care time, independent of procedures, was spent addressing the patient septic shock, encephalopathy, acute on chronic combined respiratory failure, acute on chronic kidney disease, review of all data and collaboration with the care team. Subjective Subjective Patient did okay overnight. Heart rate has been relatively controlled but patient remains on amiodarone, Levophed, propofol and fentanyl drips. Patient was initiated on tube feeds and did have a bowel movement overnight. Patient has been tolerating tube feeds. Patient did have a spontaneous breathing trial this morning, but became tachypneic and hypoxic after only 3 to 5 minutes. Objective Data Objective Data Vital Signs: Vital Signs Temp Pulse Resp BP Pulse Ox O2 Del Method O2 Flow Rate 37.3 C 114 H 14 122/72 H 94 Mechanical Ventilator 15 05/23/22 05:00 05/23/22 07:20 05/23/22 07:20 05/23/22 06:00 05/23/22 07:20 05/23/22 06:00 05/20/22 09:00 FiO2 30 05/23/22 07:20 Oxygen Flow Rate (L/min) 15 Oxygen Delivery Method Mechanical Ventilator Weight: 96.2 kg Body Mass Index (BMI) 35.3 Intake & Output: Intake and Output for Last 24 Hours 05/21/22 05/22/22 05/23/22 23:59 23:59 23:59 Intake Total 862.50 / 872.83 1886.27 / 1913.67 1053.06 / 1053.06 Output Total 1330 / 1555 2575 / 2575 500 / 500 Balance -467.50 / -682.17 -688.73 / -661.33 553.06 / 553.06 Lab / Micro Data Attestation: I reviewed the patient's lab results. Result Diagrams: 05/23/22 04:20 05/23/22 04:20 Labs: Laboratory Results - last 24 hr 05/22/22 11:30: POC Glucose 108 H 05/22/22 17:27: POC Glucose 129 H 05/23/22 01:10: POC Glucose 159 H 05/23/22 04:20: WBC 9.4, RBC 2.41 L, Hgb 7.4 L, Hct 24.9 L, MCV 103.3 H, MCH 30.7, MCHC 29.7 L, RDW Std Deviation 70.4 H, RDW Coeff of Magen 18.5 H, Plt Count 78 L, MPV 11.1, Immature Gran % (Auto) 0.500, Neut % (Auto) 75.2 H, Lymph % (Auto) 12.9 L, [place] % (Auto) 6.8, Eos % (Auto) 4.2, Baso % (Auto) 0.4, Absolute Neuts (auto) 7.0, Absolute Lymphs (auto) 1.21, Nucleated RBC % 0, Differential Comment SCANNED, Hypochromasia 1+, Anisocytosis 2+, Macrocytosis 2+ 05/23/22 04:20: Sodium 148 H, Potassium 3.8, Chloride 116 H, Carbon Dioxide 25.0, Anion Gap 7, BUN 54 H, Creatinine 1.77 H, Estim Creat Clear Calc 27.00, Est GFR (MDRD) Af Amer 37 L, Est GFR (MDRD) Non-Af 31 L, BUN/Creatinine Ratio 30.5 H, Glucose 190 H, Calcium 8.3 L 05/23/22 06:29: POC Glucose 158 H Micro: Microbiology 05/20/22 04:25 Urine Catheter - Knight Urine Culture - Final Culture exhibits no growth. 05/19/22 22:20 Transtracheal Aspirate Gram Stain - Final 05/19/22 22:20 Transtracheal Aspirate Respiratory Culture - Preliminary Escherichia coli 05/19/22 14:30 Blood Culture (Wb) - Port Blood Culture - Preliminary No growth in 48 hours. 05/19/22 13:45 Blood Culture (Wb) - Port Blood Culture - Preliminary No growth in 48 hours. 05/20/22 17:40 Sputum, Induced/Lukens Gram Stain - Final 05/20/22 17:40 Sputum, Induced/Lukens Respiratory Culture - Preliminary Gram negative marita 05/20/22 04:25 Urine Catheter - Knight Legionella Antigen - Final 05/20/22 04:25 Urine Catheter - Knight Streptococcus pneumoniae Antigen (M - Final 05/19/22 22:20 Mucosa - Nasopharyngeal Respiratory Panel (PCR) - Final Rhythm Strip Rhythm Strip: A-fib Rate: 110 Ectopy: None Physical Exam Const Constitutional Narrative: Intubated, sedated and mechanically ventilated. No ventilator dyssynchrony. RASS -2. Anasarca. HEENT normocephalic and head/scalp atraumatic Eyes PERRL and conjunctivae normal Neck supple General: trachea midline and CVC in place Chest inspection of chest normal Resp Auscultation: diminished lung sounds; Negative for rales, rhonchi or wheezes Cardio S1 normal heart sound, S2 normal heart sound and no murmurs Rate: tachycardic Rhythm: abnormal rhythm GI normal to inspection, nondistended, normoactive bowel sounds Extremity Extremity Narrative: Right foot wrapped with Kerlix dressing. Left AKA. Mild erythema around sutures, but no exudate or induration Skin General Skin Exam: venous stasis and dermatitis Neuro Sensorium / Orientation: sedated on vent Psych Mood & Affect: flat affect Charges/Coding Procedures Hospitalists Procedures: 10422 Critial Care 1st Hr
[2022-05-23] MEDS: Chlorhexidine 15 ML PO ×2 (07:49→20:33)
[2022-05-23] MEDS: Ferrous Sulfate 325 MG Tablet GT (07:56)
[2022-05-23] MEDS: Juven (unflavored) Packet 1 PACKET GT ×2 (07:56→15:49)
[2022-05-23] MEDS: Paroxetine 20 MG Tablet GT (07:57)
[2022-05-23] MEDS: Senna/Docusate Sodium 1 Tablet 2 TABLET PO ×2 (08:05→20:34)
[2022-05-23] MEDS: Aspirin 81 MG TAB.CHEW GT (08:05)
[2022-05-23] MEDS: Polyethylene Glycol 3350 17 GM PACKET PO (08:05)
--- NOTE | 2022-05-23 09:53 | PCM.PN.ID ---
Physical Exam Narrative On vent, still on levophed, no fever Const Constitutional Narrative: intubated/sedated Resp Auscultation: diminished lung sounds Cardio Rate: tachycardic GI soft to palpation, non-tender and non-distended Skin no rashes or lesions noted ID ID: Route of nutrition/ use of supplements: [] Nutritional Intake: [] IV Site: [] Knight Catheter: [] Assessment & Plan Assessment/Plan (1) Septic shock: PLAN: Septic shock due to ESBL ecoli pneumonia - cont on meropenem. Remains on vent and pressor. MIKE improving. Victoria dose adjusted. Will follow, d/w nursing (2) MIKE (acute kidney injury): (3) Anasarca:
--- NOTE | 2022-05-23 10:20 | CASEMGMT ---
Social Work Per chart review patient is from the [facility] at [facility]. Patient chart also notes at patient son, Chava Pavon is patient Health care Power of senior attorney. Per nursing staff patient family have not been in to see patient. Telephone call to Chava, no answer. This social work professor left voicemail requesting return phone all to discuss discharge planning further. Social Work to continue to follow as needed. PLAN: [facility], [facility]
[2022-05-23] MEDS: Vital AF 1.2 Cal Liquid 1,000 ML 25 ML GT (11:19)
[2022-05-23 11:25] LABS: Bedside Glucose 177 mg/dL (74-106)
[2022-05-23 16:15] LABS: Bedside Glucose 160 mg/dL (74-106)
[2022-05-23] MEDS: Mirtazapine 15 MG Tablet GT (20:34)
[2022-05-23 23:50] LABS: Bedside Glucose 178 mg/dL (74-106)
[2022-05-24] VITALS (60 sets, daily range): BP systolic 67–139; BP diastolic 40–92; PULSE 101–117; RESP 6–22; TEMP 36.4–37.2; O2SAT 91–97; BMI 34.8
[2022-05-24] MEDS: Amiodarone 360 MG in Dextrose 5% Viaflo Bag 192.8 ML 16.7 MG CONT INF ×2 (04:08→16:29)
[2022-05-24 04:19] LABS: Absolute Lymphocyte Count 0.71 X10^3/uL (0.83-4.51); Absolute Neutrophil Count 5.5 X10^3/uL (2.0-7.7); Basophil# 0.02 X10^3/uL; Basophil% 0.3 % (0-1); Eosinophil# 0.38 X10^3/uL; Eosinophils% 5.3 % (0-5); Hematocrit 23.4 % (37-47); Hemoglobin 6.8 g/dL (12.0-15.0); Lymphocyte # 0.71 X10^3/ul (0.83-4.51); Lymphocyte % 9.8 % (19-41); Mean Corp Hgb Conc 29.1 g/dL (32-36); Mean Corpuscular Hgb 30.2 pg (27.0-32.0); Mean Platelet Vol. 11.4 fl (6.2-12.0); Monocyte% 8.3 % (0-10); NRBC Flagged by Analyzer 0 % (0-5); Neutrophil # 5.49 X10^3/uL (2.7-7.7); Neutrophil % 75.9 % (47-70); POSITIVE COUNT YES; POSITIVE MORPHOLOGY YES; Platelet Count 64 K/mm3 (150-450); RBC Distribution Width CV 18.3 % (11.6-14.6); RBC Distribution Width SD 69.9 fl (35.1-43.9); Red Blood Count 2.25 M/mm3 (4.2-5.4); White Blood Count 7.2 K/mm3 (4.4-11.0)
[2022-05-24 04:20] LABS: Differential Indicated SCAN CRITERIA MET
[2022-05-24 04:29] LABS: Anion Gap 4 (5-15); Anisocytosis 1+; BUN 50 mg/dL (7-18); BUN/Creat Ratio 32.5 RATIO (10-20); Chloride 119 mmol/L (98-107); Creatinine, Serum 1.54 mg/dL (0.55-1.02); Differential Comment SCANNED; EST Glomerular Filtration Rate 36 mL/min (>60); Est Glom Filt Rate - Afr Amer 43 mL/min (>60); Estimated Creatinine Clearance 31.03 ml/min; Glucose 199 mg/dL (74-106); Potassium 3.6 mmol/L (3.5-5.1); Sodium Level 150 mmol/L (136-145)
--- NOTE | 2022-05-24 05:19 | CPS ---
SBT started at 10/5 30%, pt on trial 15min increased O2 to 60% pt continued to desat with decreasing RR 6, ended trial placed back on ordered settings with improvement
[2022-05-24] MEDS: Insulin Lispro 100 UNIT/ML INSULN.PEN SC ×4 (05:37→23:37)
[2022-05-24] MEDS: Levothyroxine 125 MCG Tablet GT (05:43)
[2022-05-24 06:00] LABS: Bedside Glucose 184 mg/dL (74-106)
[2022-05-24] MEDS: 0.9% Saline Lock 10 ML Syringe IV (06:41)
[2022-05-24] MEDS: Furosemide 20 MG/2 ML VIAL IV (06:41)
[2022-05-24] MEDS: Ipratropium/Albuterol Sulfate 3 ML AMPUL.NEB INHALATION ×5 (07:06→23:02)
--- NOTE | 2022-05-24 07:10 | PN.CC_ITS ---
Assessment & Plan Assessment/Plan (1) Septic shock: PLAN: Plan RECOMMENDATIONS: 1. Continue assist-control mode mechanical ventilation. Wean FiO2 and PEEP to maintain saturations at or above 90%. 2. Continue meropenem. Obtain culture of left antecubital wound 3. Wean Levophed as tolerated. Possible diuretics if blood pressure improves 4. Continue to monitor H&H daily and transfuse if hemoglobin drops below 7 g/dL. Transfuse blood 5. Continue appropriate ICU prophylaxis. 6. Ongoing goals of care discussion with the patient's family. Family visit for 15 minutes yesterday, but did not speak with the physician IMPRESSIONS: 1. Septic shock The patient presented with sepsis of unclear etiology with acute sepsis related organ dysfunction as evidenced by decompensated respiratory failure requiring intubation and invasive mechanical ventilatory support along with acute kidney injury. Patient is now growing ESBL E. coli in her sputum. Antibiotics were changed to meropenem with some improvements. The patient ultimately required the initiation of vasopressor support to maintain hemodynamic stability. Will obtain culture from left antecubital space to be sure there is not a significant gram-positive burden 2. Encephalopathy Appears improved off of sedation. Most likely related to acute CO2 retention. It is unclear as to whether the patient had access to a BiPAP at her nursing facility and whether or not it was being utilized. 3. Acute on chronic combined respiratory failure While underlying pneumonia is a possibility, the patient's chest imaging seems far more concerning for decompensated heart failure with evidence of pleural effusions. However, her current utilization of vasopressor support will preclude the use of diuretics at this time. Patient currently on meropenem therapy with ESBL in the sputum. Plan to continue scheduled bronchodilators over concerns for underlying obstructive lung disease. We will attempt gentle diuresis today 4. Acute on chronic kidney disease Slowly improving, but patient is developing hypernatremia and hyperchloremia. We will initiate tube feeds with free water flushes. Most likely prerenal in etiology in the setting of #1. Creatinine has continued to improve. We will plan to continue to monitor urine output for now. No current indication for renal replacement therapy. 5. 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 Continue to monitor H&H daily. Transfuse if hemoglobin drops below 7 g/dL. We will transfuse blood today. Continue PPI therapy as ordered. Sutures on AKA appear to be holding at this time despite anasarca. TIME: 34 minutes of critical care time, independent of procedures, was spent addressing the patient septic shock, encephalopathy, acute on chronic combined respiratory failure, acute on chronic kidney disease, review of all data and collaboration with the care team. Subjective Subjective Patient did okay overnight. Patient did have increased residuals requiring tube feeds to be held. Patient was able to tolerate 15 minutes of spontaneous breathing trial this morning. No active bleeding has been reported. Patient was held on sedation during my evaluation this morning and was able to make eye contact, follow commands and nod appropriately. Nursing did report noting an ulceration in the left antecubital space Objective Data Objective Data Vital Signs: Vital Signs Temp Pulse Resp BP Pulse Ox O2 Del Method O2 Flow Rate 36.9 C 102 H 14 84/47 L 95 Mechanical Ventilator 15 05/24/22 02:15 05/24/22 06:00 05/24/22 06:00 05/24/22 06:00 05/24/22 06:00 05/24/22 06:00 05/20/22 09:00 FiO2 30 05/24/22 04:00 Oxygen Flow Rate (L/min) 15 Oxygen Delivery Method Mechanical Ventilator Weight: 94.8 kg Body Mass Index (BMI) 34.8 Intake & Output: Intake and Output for Last 24 Hours 05/22/22 05/23/22 05/24/22 23:59 23:59 23:59 Intake Total 1886.27 / 1913.67 2609.49 / 2953.59 940.80 / 940.80 Output Total 2575 / 2575 1325 / 1325 325 / 325 Balance -688.73 / -661.33 1284.49 / 1628.59 615.80 / 615.80 Lab / Micro Data Result Diagrams: 05/24/22 04:05 05/24/22 04:05 Labs: Laboratory Results - last 24 hr 05/23/22 10:58: POC Glucose 177 H 05/23/22 15:32: POC Glucose 160 H 05/23/22 23:25: POC Glucose 178 H 05/24/22 04:05: WBC 7.2, RBC 2.25 L, Hgb 6.8 L, Hct 23.4 L, MCV 104.0 H, MCH 30.2, MCHC 29.1 L, RDW Std Deviation 69.9 H, RDW Coeff of Magen 18.3 H, Plt Count 64 L, MPV 11.4, Immature Gran % (Auto) 0.400, Neut % (Auto) 75.9 H, Lymph % (Auto) 9.8 L, [place] % (Auto) 8.3, Eos % (Auto) 5.3 H, Baso % (Auto) 0.3, Absolute Neuts (auto) 5.5, Absolute Lymphs (auto) 0.71 L, Nucleated RBC % 0, Differential Comment SCANNED, Anisocytosis 1+ 05/24/22 04:05: Sodium 150 H, Potassium 3.6, Chloride 119 H, Carbon Dioxide 2 7.0, Anion Gap 4 L, BUN 50 H, Creatinine 1.54 H, Estim Creat Clear Calc 31.03, Est GFR (MDRD) Af Amer 43 L, Est GFR (MDRD) Non-Af 36 L, BUN/Creatinine Ratio 32.5 H, Glucose 199 H, Calcium 8.0 L 05/24/22 05:35: POC Glucose 184 H Micro: Microbiology 05/20/22 17:40 Sputum, Induced/Lukens Gram Stain - Final 05/20/22 17:40 Sputum, Induced/Lukens Respiratory Culture - Final Escherichia coli 05/19/22 22:20 Transtracheal Aspirate Gram Stain - Final 05/19/22 22:20 Transtracheal Aspirate Respiratory Culture - Final Escherichia coli 05/20/22 04:25 Urine Catheter - Knight Urine Culture - Final Culture exhibits no growth. 05/19/22 14:30 Blood Culture (Wb) - Port Blood Culture - Preliminary No growth in 48 hours. 05/19/22 13:45 Blood Culture (Wb) - Port Blood Culture - Preliminary No growth in 48 hours. 05/20/22 04:25 Urine Catheter - Knight Legionella Antigen - Final 05/20/22 04:25 Urine Catheter - Knight Streptococcus pneumoniae Antigen (M - Final 05/19/22 22:20 Mucosa - Nasopharyngeal Respiratory Panel (PCR) - Final Rhythm Strip Rhythm Strip: A-fib Rate: 110 Ectopy: None Physical Exam Const Constitutional Narrative: Intubated, sedated and mechanically ventilated. No ventilator dyssynchrony. RASS 0. Anasarca. HEENT normocephalic and head/scalp atraumatic Eyes PERRL and conjunctivae normal Neck supple General: trachea midline and CVC in place Chest inspection of chest normal Resp Auscultation: diminished lung sounds; Negative for rales, rhonchi or wheezes Cardio S1 normal heart sound, S2 normal heart sound, no murmurs, no rub and no gallops Rate: tachycardic Rhythm: abnormal rhythm GI normal to inspection, nondistended, normoactive bowel sounds Extremity Extremity Narrative: Right foot wrapped with Kerlix dressing. Left AKA. Mild erythema around sutures, but no exudate or induration. Wound on left antecubital space in the medial aspect with some exudate, but no surrounding erythema. Approximately 1 cm across Skin General Skin Exam: venous stasis and dermatitis Neuro moves all extremities and no focal motor deficits Sensorium / Orientation: sedated on vent Psych Mood & Affect: flat affect Charges/Coding Procedures Hospitalists Procedures: 21172 Critial Care 1st Hr
[2022-05-24] MEDS: Juven (unflavored) Packet 1 PACKET GT ×2 (08:02→16:29)
[2022-05-24] MEDS: Aspirin 81 MG TAB.CHEW GT (08:02)
[2022-05-24] MEDS: Senna/Docusate Sodium 1 Tablet 2 TABLET PO ×2 (08:02→20:57)
[2022-05-24] MEDS: Chlorhexidine 15 ML PO ×2 (08:02→21:00)
[2022-05-24] MEDS: Paroxetine 20 MG Tablet GT (08:02)
[2022-05-24] MEDS: CHLORHEXIDINE GLUC 2% CLOTH 1 EACH TOWELETTE TOPICAL (08:03)
--- NOTE | 2022-05-24 08:27 | PCM.PN.HOSP ---
Reason for Visit Reason for Visit: Diagnoses Sepsis, unspecified organism (05/19/22) Pneumonia, unspecified organism (05/19/22) Acute and chronic respiratory failure with hypoxia (05/19/22) Acute kidney failure, unspecified (05/19/22) Generalized edema (05/19/22) Severe sepsis without septic shock (05/19/22) Severe sepsis with septic shock (05/19/22) Subjective Subjective Remains intubated and sedated mechanically ventilated, 15 minutes on spontaneous breathing trial this a.m. but remains on 2 of levo Objective Data Objective Data Vital Signs: Vital Signs Temp Pulse Resp BP Pulse Ox O2 Del Method O2 Flow Rate 98.7 F 117 H 21 H 101/69 95 Mechanical Ventilator 15 05/24/22 08:00 05/24/22 08:00 05/24/22 08:00 05/24/22 08:00 05/24/22 08:00 05/24/22 08:00 05/20/22 09:00 FiO2 30 05/24/22 08:00 Oxygen Flow Rate (L/min) 15 Oxygen Delivery Method Mechanical Ventilator Weight: 94.8 kg Body Mass Index (BMI) 34.8 Intake & Output: Intake and Output for Last 24 Hours 05/22/22 05/23/22 05/24/22 23:59 23:59 23:59 Intake Total 1886.27 / 1913.67 2609.49 / 2953.59 981.80 / 981.80 Output Total 2575 / 2575 1325 / 1325 325 / 325 Balance -688.73 / -661.33 1284.49 / 1628.59 656.80 / 656.80 Lab / Micro Data Result Diagrams: 05/24/22 04:05 05/24/22 04:05 Labs: Laboratory Results - last 24 hr 05/23/22 10:58: POC Glucose 177 H 05/23/22 15:32: POC Glucose 160 H 05/23/22 23:25: POC Glucose 178 H 05/24/22 04:05: WBC 7.2, RBC 2.25 L, Hgb 6.8 L, Hct 23.4 L, MCV 104.0 H, MCH 30.2, MCHC 29.1 L, RDW Std Deviation 69.9 H, RDW Coeff of Magen 18.3 H, Plt Count 64 L, MPV 11.4, Immature Gran % (Auto) 0.400, Neut % (Auto) 75.9 H, Lymph % (Auto) 9.8 L, [place] % (Auto) 8.3, Eos % (Auto) 5.3 H, Baso % (Auto) 0.3, Absolute Neuts (auto) 5.5, Absolute Lymphs (auto) 0.71 L, Nucleated RBC % 0, Differential Comment SCANNED, Anisocytosis 1+ 05/24/22 04:05: Sodium 150 H, Potassium 3.6, Chloride 119 H, Carbon Dioxide 27.0, Anion Gap 4 L, BUN 50 H, Creatinine 1.54 H, Estim Creat Clear Calc 31.03, Est GFR (MDRD) Af Amer 43 L, Est GFR (MDRD) Non-Af 36 L, BUN/Creatinine Ratio 32.5 H, Glucose 199 H, Calcium 8.0 L 05/24/22 05:35: POC Glucose 184 H Micro: Microbiology 05/20/22 17:40 Sputum, Induced/Lukens Gram Stain - Final 05/20/22 17:40 Sputum, Induced/Lukens Respiratory Culture - Final Escherichia coli 05/19/22 22:20 Transtracheal Aspirate Gram Stain - Final 05/19/22 22:20 Transtracheal Aspirate Respiratory Culture - Final Escherichia coli 05/20/22 04:25 Urine Catheter - Knight Urine Culture - Final Culture exhibits no growth. 05/19/22 14:30 Blood Culture (Wb) - Port Blood Culture - Preliminary No growth in 48 hours. 05/19/22 13:45 Blood Culture (Wb) - Port Blood Culture - Preliminary No growth in 48 hours. 05/20/22 04:25 Urine Catheter - Knight Legionella Antigen - Final 05/20/22 04:25 Urine Catheter - Knight Streptococcus pneumoniae Antigen (M - Final 05/19/22 22:20 Mucosa - Nasopharyngeal Respiratory Panel (PCR) - Final Rhythm Strip Rhythm Strip: A-fib Rate: 110 Ectopy: None Physical Exam Narrative General: Intubated and sedated was trying to move left hand during exam HEENT: Atraumatic, normocephalic Eyes: Did not spontaneously open eyes on exam Neck: Supple Respiratory: Mechanically ventilated Cardiovascular: Tachycardic GI: nondistended Extremities: Anasarca Musculoskeletal: Left AKA noted Neuro: Unable to participate in neuro exam Skin: Has some purpura on upper extremities Psych: Unable to cooperate due to intubated sedated Assessment & Plan Assessment/Plan (1) Septic shock: PLAN: Plan #Septic shock -unclear etiology -cultures pending, sputum culture with 1+ gram-negative rods -cont broad spectrum abx pending final culture results -05/22: Tracheal aspirate growing ESBL, antibiotics changed to Merrem, wean levo as tolerated. Vancomycin discontinued -05/23: Continued on Merrem, still on levo. ID following, ESBL in tracheal aspirate, blood cultures from 05/19 no growth to date -05/24: Infectious disease following, remains on meropenem for ESBL. Levo being weaned as tolerated #Chronic anemia -Chronically anemic with hemoglobin variable but today 6.8, based on trend do not think she is actively bleeding. Will receive 1 unit packed red blood cells today #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 May be able to tolerate Lasix tomorrow #Hypernatremia and hyperchloremia -Free water flushes and tube feeds started -05/23: Somewhat improved today -05/24: Continue water with tube feeds as able however had high residuals so these have been decreased #MIKE on CKD -Likely prerenal secondary to septic shock -I's and O's -05/22: Slightly improved today. Tube feeds being initiated with free water -05/23: Creatinine went from 2.27 down to 1.77, improving -05/24: Improving #Encephalopathy -likely 2/2 CO2 retention -Presently intubated #Type 2 diabetes mellitus -Continue insulin sliding scale #Atrial fibrillation -Eliquis held, Cardizem and metoprolol held due to septic shock -05/22: Amiodarone drip #Hypothyroidism -Synthroid #Coronary artery disease status post stenting -on asa, statin not on home med list, ultimately will benefit if no contraindication #Dry gangrene of left leg status post recent AKA -Continue to monitor #DVT ppx: SCDs Coco Romero MD Time spent in the patient's overall evaluation,decision-making process, review of diagnostic data, adjustment of management, discussion with other providers, nursing nursing and ancillary staff involved in patient's care documentation, 30 minutes Charges/Coding Visit Charges Inpatient E&M: 78877 Subs Hosp L2
[2022-05-24 12:05] LABS: Bedside Glucose 195 mg/dL (74-106)
--- NOTE | 2022-05-24 13:35 | PCM.PN.ID ---
Physical Exam Narrative On vent, no fever, BP slightly improved Const no apparent distress Resp Effort and Inspection: mechanically ventilated Cardio Rate: tachycardic GI soft to palpation, non-tender and non-distended Extremity General Extremity: edema Skin no rashes or lesions noted ID ID: Route of nutrition/ use of supplements: [] Nutritional Intake: [] IV Site: [] Knight Catheter: [] Assessment & Plan Assessment/Plan (1) Septic shock: PLAN: Septic shock due to ESBL ecoli pneumonia - cont on meropenem. Remains on vent and pressor. MIKE improving. Victoria dose adjusted. Levophed slightly better today. Will follow (2) MIKE (acute kidney injury): (3) Anasarca:
--- NOTE | 2022-05-24 15:24 | WOUNDNOTE ---
wound photo: left stump
--- NOTE | 2022-05-24 15:25 | WOUNDNOTE ---
wound photo: right posterior heel
--- NOTE | 2022-05-24 15:26 | WOUNDNOTE ---
wound photo: left AC
[2022-05-24 16:55] LABS: Bedside Glucose 197 mg/dL (74-106)
[2022-05-24] MEDS: Mirtazapine 15 MG Tablet GT (20:57)
[2022-05-25] VITALS (48 sets, daily range): BP systolic 85–121; BP diastolic 51–92; PULSE 88–114; RESP 14–23; TEMP 36.5–36.9; O2SAT 83–98; BMI 35.6
[2022-05-25 00:36] LABS: Bedside Glucose 215 mg/dL (74-106)
[2022-05-25] MEDS: Ipratropium/Albuterol Sulfate 3 ML AMPUL.NEB INHALATION ×6 (02:19→22:25)
[2022-05-25 04:23] LABS: Absolute Lymphocyte Count 0.86 X10^3/uL (0.83-4.51); Absolute Neutrophil Count 5.4 X10^3/uL (2.0-7.7); Basophil# 0.01 X10^3/uL; Basophil% 0.1 % (0-1); Eosinophil# 0.33 X10^3/uL; Eosinophils% 4.5 % (0-5); Hematocrit 26.4 % (37-47); Hemoglobin 8.1 g/dL (12.0-15.0); Lymphocyte # 0.86 X10^3/ul (0.83-4.51); Lymphocyte % 11.8 % (19-41); Mean Corp Hgb Conc 30.7 g/dL (32-36); Mean Corpuscular Hgb 30.8 pg (27.0-32.0); Mean Corpuscular Volume 100.4 fL (81-99); Mean Platelet Vol. 11.8 fl (6.2-12.0); Monocyte# 0.64 X10^3/uL; Monocyte% 8.8 % (0-10); NRBC Flagged by Analyzer 0 % (0-5); Neutrophil # 5.43 X10^3/uL (2.7-7.7); Neutrophil % 74.5 % (47-70); POSITIVE COUNT YES; POSITIVE MORPHOLOGY YES; Platelet Count 67 K/mm3 (150-450); RBC Distribution Width CV 18.8 % (11.6-14.6); RBC Distribution Width SD 70.4 fl (35.1-43.9); Red Blood Count 2.63 M/mm3 (4.2-5.4); White Blood Count 7.3 K/mm3 (4.4-11.0)
[2022-05-25 04:26] LABS: Differential Indicated SCAN CRITERIA MET
[2022-05-25 04:36] LABS: Anion Gap 5 (5-15); BUN 52 mg/dL (7-18); BUN/Creat Ratio 37.7 RATIO (10-20); Calcium,Total 8.1 mg/dL (8.5-10.1); Chloride 117 mmol/L (98-107); Creatinine, Serum 1.38 mg/dL (0.55-1.02); EST Glomerular Filtration Rate 41 mL/min (>60); Est Glom Filt Rate - Afr Amer 49 mL/min (>60); Estimated Creatinine Clearance 34.63 ml/min; Glucose 228 mg/dL (74-106); Potassium 3.4 mmol/L (3.5-5.1); Sodium Level 148 mmol/L (136-145)
[2022-05-25 04:49] LABS: Differential Comment SCANNED; Platelet Estimate MOD DEC (ADEQ)
[2022-05-25] MEDS: Insulin Lispro 100 UNIT/ML INSULN.PEN SC ×4 (05:19→23:07)
[2022-05-25] MEDS: Levothyroxine 125 MCG Tablet GT (05:27)
[2022-05-25] MEDS: Amiodarone 360 MG in Dextrose 5% Viaflo Bag 192.8 ML 16.7 MG CONT INF ×2 (06:00→16:46)
[2022-05-25] MEDS: Vital AF 1.2 Cal Liquid 1,000 ML 20 ML GT (06:34)
--- NOTE | 2022-05-25 07:53 | PN.CC_ITS ---
Assessment & Plan Assessment/Plan (1) Septic shock: PLAN: Plan RECOMMENDATIONS: 1. Continue assist-control mode mechanical ventilation. Wean FiO2 and PEEP to maintain saturations at or above 90%. 2. Continue meropenem. Await culture of left antecubital wound 3. Wean Levophed as tolerated. Challenge with diuretics 4. Continue to monitor H&H daily and transfuse if hemoglobin drops below 7 g/dL. Transfuse blood 5. Continue appropriate ICU prophylaxis. 6. Ongoing goals of care discussion with the patient's family. IMPRESSIONS: 1. Septic shock The patient presented with sepsis of unclear etiology with acute sepsis related organ dysfunction as evidenced by decompensated respiratory failure requiring intubation and invasive mechanical ventilatory support along with acute kidney injury. Patient is now growing ESBL E. coli in her sputum. Antibiotics were changed to meropenem with some improvements. The patient ultimately required the initiation of vasopressor support to maintain hemodynamic stability. Will await culture from left antecubital space to be sure there is not a significant gram-positive burden. 2. Encephalopathy Appears improved off of sedation. Most likely related to acute CO2 retention. It is unclear as to whether the patient had access to a BiPAP at her nursing facility and whether or not it was being utilized. 3. Acute on chronic combined respiratory failure Patient did grow ESBL E. coli in her sputum indicating pneumonia on presentation as an etiology of her respiratory failure. However, her current utilization of vasopressor support will preclude the aggressive use of diuretics at this time. Patient currently on meropenem therapy with ESBL in the sputum. Plan to continue scheduled bronchodilators over concerns for underlying obstructive lung disease. We will attempt gentle diuresis today 4. Acute on chronic kidney disease Stable, but patient is developing hypernatremia and hyperchloremia. We will continue tube feeds with free water flushes. Most likely prerenal in etiology in the setting of #1. Creatinine has continued to improve. We will plan to continue to monitor urine output for now. No current indication for renal replacement therapy. 5. 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 Continue to monitor H&H daily. Transfuse if hemoglobin drops below 7 g/dL. We will transfuse blood today. Continue PPI therapy as ordered. Sutures on AKA appear to be holding at this time despite anasarca. TIME: 36 minutes of critical care time, independent of procedures, was spent addressing the patient septic shock, encephalopathy, acute on chronic combined respiratory failure, acute on chronic kidney disease, review of all data and collaboration with the care team. Objective Data Objective Data Vital Signs: Vital Signs Temp Pulse Resp BP Pulse Ox O2 Del Method O2 Flow Rate 36.6 C 96 14 98/59 L 94 Mechanical Ventilator 15 05/25/22 00:00 05/25/22 07:31 05/25/22 07:31 05/25/22 07:00 05/25/22 07:31 05/25/22 07:00 05/20/22 09:00 FiO2 40 05/25/22 07:31 Oxygen Flow Rate (L/min) 15 Oxygen Delivery Method Mechanical Ventilator Weight: 97.1 kg Body Mass Index (BMI) 35.6 Intake & Output: Intake and Output for Last 24 Hours 05/23/22 05/24/22 05/25/22 23:59 23:59 23:59 Intake Total 2609.49 / 2953.59 2618.57 / 2649.07 807.69 / 807.69 Output Total 1325 / 1325 1250 / 1400 150 / 150 Balance 1284.49 / 1628.59 1368.57 / 1249.07 657.69 / 657.69 Lab / Micro Data Attestation: I reviewed the patient's lab results. Result Diagrams: 05/25/22 04:00 05/25/22 04:00 Labs: Laboratory Results - last 24 hr 05/24/22 06:30: Blood Type O NEGATIVE, Antibody Screen NEGATIVE 05/24/22 06:30: Crossmatch See Detail 05/24/22 11:43: POC Glucose 195 H 05/24/22 16:28: POC Glucose 197 H 05/24/22 23:36: POC Glucose 215 H 05/25/22 04:00: WBC 7.3, RBC 2.63 L, Hgb 8.1 L, Hct 26.4 L, MCV 100.4 H, MCH 30.8, MCHC 30.7 L D, RDW Std Deviation 70.4 H, RDW Coeff of Magen 18.8 H, Plt Count 67 L, MPV 11.8, Immature Gran % (Auto) 0.300, Neut % (Auto) 74.5 H, Lymph % (Auto) 11.8 L, [place] % (Auto) 8.8, Eos % (Auto) 4.5, Baso % (Auto) 0.1, Absolute Neuts (auto) 5.4, Absolute Lymphs (auto) 0.86, Nucleated RBC % 0, Differential Comment SCANNED, Platelet Estimate MOD DEC 05/25/22 04:00: Sodium 148 H, Potassium 3.4 L, Chloride 117 H, Carbon Dioxide 26.0, Anion Gap 5, BUN 52 H, Creatinine 1.38 H, Estim Creat Clear Calc 34.63, Est GFR (MDRD) Af Amer 49 L, Est GFR (MDRD) Non-Af 41 L, BUN/Creatinine Ratio 37.7 H, Glucose 228 H, Calcium 8.1 L Micro: Microbiology 05/19/22 14:30 Blood Culture (Wb) - Port Blood Culture - Final No growth in 5 days. 05/19/22 13:45 Blood Culture (Wb) - Port Blood Culture - Final No growth in 5 days. 05/20/22 17:40 Sputum, Induced/Lukens Gram Stain - Final 05/20/22 17:40 Sputum, Induced/Lukens Respiratory Culture - Final Escherichia coli 05/19/22 22:20 Transtracheal Aspirate Gram Stain - Final 05/19/22 22:20 Transtracheal Aspirate Respiratory Culture - Final Escherichia coli 05/20/22 04:25 Urine Catheter - Knight Urine Culture - Final Culture exhibits no growth. 05/20/22 04:25 Urine Catheter - Knight Legionella Antigen - Final 05/20/22 04:25 Urine Catheter - Knight Streptococcus pneumoniae Antigen (M - Final 05/19/22 22:20 Mucosa - Nasopharyngeal Respiratory Panel (PCR) - Final Rhythm Strip Rhythm Strip: A-fib Rate: 109 Ectopy: None Physical Exam Const Constitutional Narrative: Intubated, sedated and mechanically ventilated. No ventilator dyssynchrony. RASS -1. Anasarca. HEENT normocephalic and head/scalp atraumatic Eyes PERRL and conjunctivae normal Neck supple General: trachea midline and CVC in place Chest inspection of chest normal Resp Auscultation: diminished lung sounds; Negative for rales, rhonchi or wheezes Cardio S1 normal heart sound, S2 normal heart sound, no murmurs, no rub and no gallops Rate: tachycardic Rhythm: abnormal rhythm GI normal to inspection, nondistended, normoactive bowel sounds Extremity Extremity Narrative: Right foot wrapped with Kerlix dressing. Left AKA. Mild erythema around sutures, but no exudate or induration. Wound on left antecubital space in the medial aspect with some exudate, but no surrounding erythema. Approximately 1 cm across. No changes from yesterday. Skin General Skin Exam: venous stasis and dermatitis Neuro moves all extremities and no focal motor deficits Sensorium / Orientation: sedated on vent Psych Mood & Affect: flat affect Charges/Coding Procedures Hospitalists Procedures: 61219 Critial Care 1st Hr
[2022-05-25] MEDS: Senna/Docusate Sodium 1 Tablet 2 TABLET PO ×2 (08:07→21:45)
[2022-05-25] MEDS: Paroxetine 20 MG Tablet GT (08:07)
[2022-05-25] MEDS: Aspirin 81 MG TAB.CHEW GT (08:07)
[2022-05-25] MEDS: Juven (unflavored) Packet 1 PACKET GT ×2 (08:07→16:46)
[2022-05-25] MEDS: Chlorhexidine 15 ML PO ×2 (08:08→21:39)
--- NOTE | 2022-05-25 08:11 | PN.HOSP_ITS ---
Reason for Visit Reason for Visit: Diagnoses Sepsis, unspecified organism (05/19/22) Pneumonia, unspecified organism (05/19/22) Acute and chronic respiratory failure with hypoxia (05/19/22) Acute kidney failure, unspecified (05/19/22) Generalized edema (05/19/22) Severe sepsis without septic shock (05/19/22) Severe sepsis with septic shock (05/19/22) Subjective Subjective Resting comfortably, failed SBT trial after 3 minutes this morning due to low tidal volumes Objective Data Objective Data Vital Signs: Vital Signs Temp Pulse Resp BP Pulse Ox O2 Del Method O2 Flow Rate 98 F 100 14 97/74 95 Mechanical Ventilator 15 05/25/22 08:00 05/25/22 08:00 05/25/22 08:00 05/25/22 08:00 05/25/22 08:00 05/25/22 08:00 05/20/22 09:00 FiO2 40 05/25/22 08:00 Oxygen Flow Rate (L/min) 15 Oxygen Delivery Method Mechanical Ventilator Weight: 97.1 kg Body Mass Index (BMI) 35.6 Intake & Output: Intake and Output for Last 24 Hours 05/23/22 05/24/22 05/25/22 23:59 23:59 23:59 Intake Total 2609.49 / 2953.59 2618.57 / 2649.07 851.26 / 851.26 Output Total 1325 / 1325 1250 / 1400 150 / 150 Balance 1284.49 / 1628.59 1368.57 / 1249.07 701.26 / 701.26 Lab / Micro Data Result Diagrams: 05/25/22 04:00 05/25/22 04:00 Labs: Laboratory Results - last 24 hr 05/24/22 06:30: Blood Type O NEGATIVE, Antibody Screen NEGATIVE 05/24/22 06:30: Crossmatch See Detail 05/24/22 11:43: POC Glucose 195 H 05/24/22 16:28: POC Glucose 197 H 05/24/22 23:36: POC Glucose 215 H 05/25/22 04:00: WBC 7.3, RBC 2.63 L, Hgb 8.1 L, Hct 26.4 L, MCV 100.4 H, MCH 30. 8, MCHC 30.7 L D, RDW Std Deviation 70.4 H, RDW Coeff of Magen 18.8 H, Plt Count 67 L, MPV 11.8, Immature Gran % (Auto) 0.300, Neut % (Auto) 74.5 H, Lymph % (Auto) 11.8 L, [place] % (Auto) 8.8, Eos % (Auto) 4.5, Baso % (Auto) 0.1, Absolute Neuts (auto) 5.4, Absolute Lymphs (auto) 0.86, Nucleated RBC % 0, Differential Comment SCANNED, Platelet Estimate MOD 05/25/22 04:00: Sodium 148 H, Potassium 3.4 L, Chloride 117 H, Carbon Dioxide 26.0, Anion Gap 5, BUN 52 H, Creatinine 1.38 H, Estim Creat Clear Calc 34.63, Est GFR (MDRD) Af Amer 49 L, Est GFR (MDRD) Non-Af 41 L, BUN/Creatinine Ratio 37.7 H, Glucose 228 H, Calcium 8.1 L Micro: Microbiology 05/19/22 14:30 Blood Culture (Wb) - Port Blood Culture - Final No growth in 5 days. 05/19/22 13:45 Blood Culture (Wb) - Port Blood Culture - Final No growth in 5 days. 05/20/22 17:40 Sputum, Induced/Lukens Gram Stain - Final 05/20/22 17:40 Sputum, Induced/Lukens Respiratory Culture - Final Escherichia coli 05/19/22 22:20 Transtracheal Aspirate Gram Stain - Final 05/19/22 22:20 Transtracheal Aspirate Respiratory Culture - Final Escherichia coli 05/20/22 04:25 Urine Catheter - Knight Urine Culture - Final Culture exhibits no growth. 05/20/22 04:25 Urine Catheter - Knight Legionella Antigen - Final 05/20/22 04:25 Urine Catheter - Knight Streptococcus pneumoniae Antigen (M - Final 05/19/22 22:20 Mucosa - Nasopharyngeal Respiratory Panel (PCR) - Final Rhythm Strip Rhythm Strip: A-fib Rate: 109 Ectopy: None Physical Exam Narrative General: Intubated and sedated HEENT: Atraumatic, normocephalic Eyes: Spontaneous eye opening though not purposeful Neck: Supple Respiratory: Mechanically ventilated Cardiovascular: Tachycardic GI: nondistended Extremities: Anasarca Musculoskeletal: Left AKA noted Neuro: Unable to participate in neuro exam Skin: Has some purpura on upper extremities Psych: Unable to cooperate due to intubated sedated Assessment & Plan Assessment/Plan (1) Septic shock: PLAN: Plan #Septic shock secondary to ESBL E. coli pneumonia -unclear etiology -cultures pending, sputum culture with 1+ gram-negative rods -cont broad spectrum abx pending final culture results -05/22: Tracheal aspirate growing ESBL, antibiotics changed to Merrem, wean levo as tolerated. Vancomycin discontinued -05/23: Continued on Merrem, still on levo. ID following, ESBL in tracheal aspirate, blood cultures from 05/19 no growth to date -05/24: Infectious disease following, remains on meropenem for ESBL. Levo being weaned as tolerated -05/25: Down to 1 mcg of levo with good MAP. On Merrem, blood cultures no growth. Arm wound culture pending #Chronic anemia -Chronically anemic with hemoglobin variable but today 6.8, based on trend do no t think she is actively bleeding. Will receive packed red blood cells today. Transfusion goal 7 #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 May be able to tolerate Lasix tomorrow -05/25: To be given Lasix trial. Failed SBT today after 3 minutes due to low tidal volumes #Hypernatremia and hyperchloremia -Free water flushes and tube feeds started -05/23: Somewhat improved today -05/24: Continue water with tube feeds as able however had high residuals so these have been decreased -05/25: Tube feeds being increased as tolerated #MIKE on CKD -Likely prerenal secondary to septic shock -I's and O's -05/22: Slightly improved today. Tube feeds being initiated with free water -05/23: Creatinine went from 2.27 down to 1.77, improving -05/24: Improving #Encephalopathy -likely 2/2 CO2 retention -Presently intubated #Type 2 diabetes mellitus -Continue insulin sliding scale #Atrial fibrillation -Eliquis held, Cardizem and metoprolol held due to septic shock -05/22: Amiodarone drip #Hypothyroidism -Synthroid #Coronary artery disease status post stenting -on asa, statin not on home med list, ultimately will benefit if no contraindication #Dry gangrene of left leg status post recent AKA -Continue to monitor #DVT ppx: SCDs Coco Romero MD Time spent in the patient's overall evaluation,decision-making process, review of diagnostic data, adjustment of management, discussion with other providers, nursing nursing and ancillary staff involved in patient's care documentation, 30 minutes Charges/Coding Visit Charges Inpatient E&M: 24947 Subs Hosp L2
[2022-05-25] MEDS: Furosemide 20 MG/2 ML VIAL IV ×2 (08:12→16:46)
[2022-05-25] MEDS: 0.9% Saline Lock 10 ML Syringe IV (08:13)
[2022-05-25] MEDS: Potassium Chloride Oral Soln 20 MEQ/15 ML UDC 40 MEQ GT (08:44)
--- NOTE | 2022-05-25 10:17 | PCM.PN.ID ---
Physical Exam Narrative On vent, no fever Const no apparent distress Resp Auscultation: rhonchi Cardio Rate: tachycardic GI soft to palpation, non-tender and non-distended Extremity General Extremity: edema Skin Skin Narrative: L antecub redness ID ID: Route of nutrition/ use of supplements: [] Nutritional Intake: [] IV Site: [] Knight Catheter: [] Assessment & Plan Assessment/Plan (1) Septic shock: PLAN: Septic shock due to ESBL ecoli pneumonia - cont on meropenem. Remains on vent and pressor. MIKE improving. Levophed better today. L antecub wound cx with GNR. Will follow (2) MIKE (acute kidney injury): (3) Anasarca:
[2022-05-25 12:56] LABS: Bedside Glucose 198 mg/dL (74-106)
[2022-05-25 17:15] LABS: Bedside Glucose 204 mg/dL (74-106)
[2022-05-25] MEDS: Menthol/Lanolin/Calamine/Znox 113 GM Tube 1 APPLIC TOPICAL (21:44)
[2022-05-25] MEDS: Mirtazapine 15 MG Tablet GT (21:45)
[2022-05-25] MEDS: CHLORHEXIDINE GLUC 2% CLOTH 1 EACH TOWELETTE TOPICAL (23:01)
[2022-05-26] VITALS (40 sets, daily range): BP systolic 91–142; BP diastolic 53–93; PULSE 88–115; RESP 7–18; TEMP 36.2–36.8; O2SAT 76–99; BMI 36.0
[2022-05-26 00:21] LABS: Bedside Glucose 216 mg/dL (74-106)
[2022-05-26] MEDS: Ipratropium/Albuterol Sulfate 3 ML AMPUL.NEB INHALATION ×6 (03:35→22:30)
[2022-05-26 04:35] LABS: Absolute Lymphocyte Count 1.04 X10^3/uL (0.83-4.51); Absolute Neutrophil Count 5.3 X10^3/uL (2.0-7.7); Basophil# 0.03 X10^3/uL; Basophil% 0.4 % (0-1); Eosinophil# 0.42 X10^3/uL; Eosinophils% 5.6 % (0-5); Hematocrit 27.3 % (37-47); Hemoglobin 7.9 g/dL (12.0-15.0); Lymphocyte # 1.04 X10^3/ul (0.83-4.51); Mean Corp Hgb Conc 28.9 g/dL (32-36); Mean Corpuscular Hgb 29.8 pg (27.0-32.0); Mean Platelet Vol. 11.4 fl (6.2-12.0); Monocyte# 0.66 X10^3/uL; Monocyte% 8.9 % (0-10); NRBC Flagged by Analyzer 0 % (0-5); Neutrophil # 5.25 X10^3/uL (2.7-7.7); Neutrophil % 70.6 % (47-70); POSITIVE COUNT YES; POSITIVE MORPHOLOGY YES; Platelet Count 69 K/mm3 (150-450); RBC Distribution Width CV 18.2 % (11.6-14.6); RBC Distribution Width SD 69.1 fl (35.1-43.9); Red Blood Count 2.65 M/mm3 (4.2-5.4); White Blood Count 7.4 K/mm3 (4.4-11.0)
[2022-05-26] MEDS: Amiodarone 360 MG in Dextrose 5% Viaflo Bag 192.8 ML 16.7 MG CONT INF (04:45)
[2022-05-26 04:46] LABS: Anion Gap 3 (5-15); BUN 57 mg/dL (7-18); BUN/Creat Ratio 44.2 RATIO (10-20); Chloride 118 mmol/L (98-107); Creatinine, Serum 1.29 mg/dL (0.55-1.02); EST Glomerular Filtration Rate 44 mL/min (>60); Est Glom Filt Rate - Afr Amer 53 mL/min (>60); Estimated Creatinine Clearance 37.04 ml/min; Glucose 197 mg/dL (74-106); Potassium 3.8 mmol/L (3.5-5.1); Sodium Level 148 mmol/L (136-145)
[2022-05-26 04:49] LABS: Differential Indicated SCAN CRITERIA MET
[2022-05-26 04:58] LABS: Triglycerides 111 mg/dL
[2022-05-26] MEDS: 0.9% Saline Lock 10 ML Syringe IV ×2 (05:06→16:19)
[2022-05-26 05:07] LABS: CPK Total, Creatine Kinase 17 U/L (26-192)
[2022-05-26] MEDS: Insulin Lispro 100 UNIT/ML INSULN.PEN SC ×3 (05:12→17:42)
[2022-05-26] MEDS: Levothyroxine 125 MCG Tablet GT (05:16)
[2022-05-26] MEDS: Aspirin 81 MG TAB.CHEW GT (07:57)
[2022-05-26] MEDS: Paroxetine 20 MG Tablet GT (07:57)
[2022-05-26] MEDS: Juven (unflavored) Packet 1 PACKET GT ×2 (07:57→17:42)
[2022-05-26] MEDS: Chlorhexidine 15 ML PO ×2 (07:58→21:02)
[2022-05-26] MEDS: Senna/Docusate Sodium 1 Tablet 2 TABLET PO (07:58)
[2022-05-26] MEDS: Menthol/Lanolin/Calamine/Znox 113 GM Tube 1 APPLIC TOPICAL ×2 (07:58→21:02)
--- NOTE | 2022-05-26 08:24 | PCM.PN.INT ---
Assessment & Plan Assessment/Plan (1) MIKE (acute kidney injury): (2) Toxic metabolic encephalopathy: (3) Acute on chronic respiratory failure with hypoxia and hypercapnia: (4) Anemia: (5) Gram-negative bacteremia: PLAN: Plan Impression: Day 8 hospitalization 1a. ESBL E. coli sepsis, white count normal, sputum is minimal and thin. 1B: Pseudomonas left arm infection, covered with meropenem. - Continue meropenem for 10 days or per ID -ID following and appreciated. - Continue wound care. -Careful skin care; fragile skin 2. Acute on chronic hypoxic and hypercarbic respiratory failure in a patient with COPD, sleep apnea, pulmonary hypertension, atelectasis, obesity, and ESBL pneumonia. Patient failed weaning today likely due to atelectasis, chronic weakness, and sedation. - Lighten sedation to enable better cooperation with weaning trials - Continue nutritional supplementation, hold tube feeds for weaning trials - Short weaning trials 3-4 times daily - Diuresis -She would likely need to be extubated to BiPAP due to underlying sleep apnea. Notably patient does not use NIV at home, is noncompliant and uses oxygen with uncertain compliance. 3. Altered mental status, chronic. - Lighten sedation - Restart patient's gabapentin at reduced dose to avoid gabapentin?benzodiazepine withdrawal - Check thyroid function 4. Anemia - Supplement iron, B12, folate. MCV is elevated. - Transfuse to hemoglobin greater than 8 due to CHF and pulmonary hypertension 5. MIKE on CKD -Maintain adequate intravascular volume and perfusion Avoid nephrotoxins Monitor electrolytes 6. Chronic A-fib RVR - Changed to NG tube amiodarone 200 mg twice daily - Rate control with beta-skyler as needed Critical care time: 60 minutes, including bedside, chart review, interdisciplinary rounds, coordination of care with colleagues. This is before anticipated supervision of anticipated weaning trials Subjective Subjective Intubated and sedated on ventilator, RASS -1 to +1 on fentanyl 100 mcg. Failed weaning trial today due to apnea periods. No complaints of chest or abdominal pain, does not cough on request, tracks, does not reliably follow commands, (on fentanyl) On service summary: 67-year-old female with oxygen dependent possible COPD at 3 L/min at rest 4 L with exertion on Breo Ellipta, HFpEF and NSTEMI January 2017, tricuspid insufficiency. admitted 05/19/2022 with severe sepsis due to ESBL E. coli likely from RLL pneumonia, complicated by chronic A-fib RVR, HFpEF, and MIKE on CKD 3B/A1. Initial ABG here was 7.0 /. Chest x-ray had bibasilar atelectasis and effusions. She was discharged from the hospital on May 10, for acute on chronic respiratory failure with severe secondary pulmonary hypertension and HCAP. She weaned off Levophed 05/25 at 9 PM. Remains intubated on mechanical ventilator with 7.5 endotracheal tube at 24 cm, failed weaning trial this morning with a RSBI of 80 and persistent apneas on fentanyl 100 mics. Secretions are thin and creamy. Goals of care discussion on admission were full code. Septic shock is likely due to recurrent diabetic skin infections, with a draining lesion in the left elbow crease growing watkins-sensitive Pseudomonas, persistent right heel ulcer, and left AKA with mild erythema of the wound site. Previous wound for which she had the AKA grew E. coli. Other problems include likely untreated O2-dependent SILVER, it is uncertain whether she had BiPAP at her nursing facility. Encephalopathy possibly related to CO2 retention, acute on chronic respiratory failure, acute on chronic renal disease, hypothyroidism on levothyroxine anemia, A-fib RVR on amiodarone and outpatient Eliquis, hyperlipidemia, hypertension, diabetes mellitus, coronary artery disease. Microbiology showed left arm wound with Pseudomonas aeruginosa 05/24/2022, sensitive to all antibiotics including imipenem, cefepime, levofloxacin, Zosyn. Sputum 05/20/2022 had E. coli sensitive to amikacin, cefepime, cefotetan, gentamicin, imipenem, meropenem, Zosyn, tetracycline and tobramycin. Objective Data Objective Data Vital Signs: Vital Signs Temp Pulse Resp BP Pulse Ox O2 Del Method O2 Flow Rate 98 F 105 H 14 119/63 91 Mechanical Ventilator 15 05/26/22 04:00 05/26/22 07:06 05/26/22 07:06 05/26/22 07:00 05/26/22 07:06 05/26/22 07:00 05/20/22 09:00 FiO2 30 05/26/22 07:06 Oxygen Flow Rate (L/min) 15 Oxygen Delivery Method Mechanical Ventilator that is changed to tidal volume 350 times rate 16 x 40% FiO2 x8 PEEP. ABG today to be drawn. Peak inspiratory pressures were 35 on previous settings, now decreased to 26 Weight: 216 lb 4.375 oz Body Mass Index (BMI) 36.0 Tube feeds 45 cc/h, tolerated well, moving bowels daily. Intake & Output: Intake and Output for Last 24 Hours 05/24/22 05/25/22 05/26/22 23:59 23:59 23:59 Intake Total 2618.57 / 2649.07 2715.27 / 2971.07 967.26 / 967.26 Output Total 1250 / 1400 700 / 1000 475 / 475 Balance 1368.57 / 1249.07 2015 / 1971. 492.26 / 492.26 Lab / Micro Data Attestation: I reviewed the patient's lab results. Result Diagrams: 05/26/22 04:25 05/26/22 04:25 Labs: Laboratory Results - last 24 hr 05/25/22 12:26: POC Glucose 198 H 05/25/22 16:46: POC Glucose 204 H 05/25/22 23:06: POC Glucose 216 H 05/26/22 04:25: WBC 7.4, RBC 2.65 L, Hgb 7.9 L, Hct 27.3 L, MCV 103.0 H, MCH 29.8, MCHC 28.9 L D, RDW Std Deviation 69.1 H, RDW Coeff of Magen 18.2 H, Plt Count 69 L, MPV 11.4, Immature Gran % (Auto) 0.500, Neut % (Auto) 70.6 H, Lymph % (Auto) 14.0 L, [place] % (Auto) 8.9, Eos % (Auto) 5.6 H, Baso % (Auto) 0.4, Absolute Neuts (auto) 5.3, Absolute Lymphs (auto) 1.04, Nucleated RBC % 0 05/26/22 04:25: Sodium 148 H, Potassium 3.8, Chloride 118 H, Carbon Dioxide 27.0, Anion Gap 3 L, BUN 57 H, Creatinine 1.29 H, Estim Creat Clear Calc 37.04, Est GFR (MDRD) Af Amer 53 L, Est GFR (MDRD) Non-Af 44 L, BUN/Creatinine Ratio 44.2 H, Glucose 197 H, Calcium 8.0 L 05/26/22 04:25: Triglycerides 111 05/26/22 04:25: Total Creatine Kinase 17 L Micro: Microbiology 05/24/22 06:35 Wound - Arm Left Wound Culture - Preliminary Pseudomonas aeruginosa 05/19/22 14:30 Blood Culture (Wb) - Port Blood Culture - Final No growth in 5 days. 05/19/22 13:45 Blood Culture (Wb) - Port Blood Culture - Final No growth in 5 days. 05/20/22 17:40 Sputum, Induced/Lukens Gram Stain - Final 05/20/22 17:40 Sputum, Induced/Lukens Respiratory Culture - Final Escherichia coli 05/19/22 22:20 Transtracheal Aspirate Gram Stain - Final 05/19/22 22:20 Transtracheal Aspirate Respiratory Culture - Final Escherichia coli 05/20/22 04:25 Urine Catheter - Knight Urine Culture - Final Culture exhibits no growth. 05/20/22 04:25 Urine Catheter - Knight Legionella Antigen - Final 05/20/22 04:25 Urine Catheter - Knight Streptococcus pneumoniae Antigen (M - Final 05/19/22 22:20 Mucosa - Nasopharyngeal Respiratory Panel (PCR) - Final ABG Data ABG results: Pending today Radiography Diagnostic Testing: Chest x-ray today shows diffuse right-sided infiltrate, possible residual effusion, good placement of endotracheal tube and right IJ. Compared to 324, the right-sided infiltrate has increased, and the effusion has decreased. The left pleural effusion has resolved. Head neck CTA on 05/12/2022 showed greater than 70% stenosis of mid right carotid bulb extending to the right proximal ICA, high-grade stenosis of right external carotid artery, patent bilateral common carotids and bilateral codominant vertebral arteries, no significant obstruction of the anterior and posterior intracranial circulation, normal aortic arch. Echocardiogram 05/08/2022 showed normal LV size and function ejection fraction 55% with no wall motion abnormalities, mild global right ventricular systolic dysfunction and dilation, PA systolic pressure 50 mm, moderate TI mild LAE and BALTA, small pericardial effusion. CT chest 05/06/2022 had bilateral pleural effusions right greater than left associated with bilateral lower and right middle lobe consolidation. Cardiomegaly, pericardial effusion, atherosclerosis, subcutaneous edema of the right breast and abdominal wall greater on the right. Rhythm Strip Rhythm Strip: A-fib Rate: 109 Ectopy: None Physical Exam Narrative Chronically ill-appearing pale woman in no respiratory distress, tracking, mildly agitated on the ventilator. HEENT: Extraoculars are intact pupils equal and reactive, tracks, no icterus. Mouth, endotracheal tube 7.5 mm at 24 cm at the upper teeth, thin creamy clear secretions with suctioning, mild quantity. Neck is supple with right IJ in place, intact with no purulence or erythema, no thyromegaly or mass Chest is equal bilaterally, using accessory muscles, Risby during weaning trial was 80 today. Diminished breath sounds, no rhonchi or wheezes. Heart normal irregular S1-S2 with no murmurs rubs or gallops Abdomen is soft nontender positive bowel sounds NG tube feedings in process. Extremities have a packed lesion in the right elbow crease ventrally and medially, approximately 7 mm, creamy secretions on packing without blood. Right heel ulcer is wrapped and not examined. The left stump is with a mildly erythematous suture line with no exudate or drainage. Neuro exam is grossly nonfocal. Skin multiple ecchymoses and abrasions, with wounds as above. Charges/Coding Procedures Hospitalists Procedures: [id number] Critial Care 1st Hr
--- NOTE | 2022-05-26 08:33 | RAD_ITS ---
STUDY: X-RAY CHEST REASON FOR EXAM: Female, 67 years old. Failure to wean from vent TECHNIQUE: Single AP portable view of the chest. COMPARISON: Comparison is made with prior study dated May 19, 2022. FINDINGS: An endotracheal tube is in situ with the tip at 3.5 cm proximal to the ousmane. A right-sided central catheter seen with the tip in the midportion of the superior vena cava. An orogastric tube is seen with the tip below the left hemidiaphragm. EKG electrodes are seen. Since prior study, there has been almost complete resolution of the right pleural effusion. Residual blunting of both counseling angles is seen. Improved aeration at both lung bases. There is borderline cardiomegaly. Normal mediastinum and sol. Normal visualized pulmonary arteries. Normal visualized aortic arch and descending thoracic aorta. There are diffuse degenerative changes of the visualized thoracic spine. Normal visualized ribs, clavicles, and shoulders. There is no demonstrated abnormality of the visualized soft tissue structures of the upper abdomen. RAD/Chest 1 View IMPRESSION: Interval decrease in the right pleural effusion with mild residual blunting of both cost phrenic angles. Improved aeration at the lung bases. All the support lines are in good position. Electronically Signed: Butch Ling MD at 9:39 EDT ,
[2022-05-26] MEDS: Amiodarone 200 MG Tablet PO ×2 (09:49→21:02)
[2022-05-26] MEDS: Vital AF 1.2 Cal Liquid 1,000 ML 45 ML GT (09:52)
--- NOTE | 2022-05-26 09:57 | PCM.PN.HOSP ---
Reason for Visit Reason for Visit: Diagnoses Sepsis, unspecified organism (05/19/22) Anemia, unspecified (05/19/22) Other toxic encephalopathy (05/19/22) Pneumonia, unspecified organism (05/19/22) Acute and chronic respiratory failure with hypoxia (05/19/22) Acute and chronic respiratory failure with hypercapnia (05/19/22) Acute kidney failure, unspecified (05/19/22) Generalized edema (05/19/22) Severe sepsis without septic shock (05/19/22) Severe sepsis with septic shock (05/19/22) Bacteremia (05/19/22) Subjective Subjective Woken easily during exam and followed commands Objective Data Objective Data Vital Signs: Vital Signs Temp Pulse Resp BP Pulse Ox O2 Del Method O2 Flow Rate 97.3 F L 92 16 97/54 L 95 Mechanical Ventilator 15 05/26/22 08:00 05/26/22 09:00 05/26/22 09:00 05/26/22 09:00 05/26/22 09:00 05/26/22 09:00 05/20/22 09:00 FiO2 40 05/26/22 09:00 Oxygen Flow Rate (L/min) 15 Oxygen Delivery Method Mechanical Ventilator Weight: 98.1 kg Body Mass Index (BMI) 36.0 Intake & Output: Intake and Output for Last 24 Hours 05/24/22 05/25/22 05/26/22 23:59 23:59 23:59 Intake Total 2618.57 / 2649.07 2715.27 / 2971.07 1392.51 / 1392.51 Output Total 1250 / 1400 700 / 1000 475 / 475 Balance 1368.57 / 1249.07 / 917.51 / 917.51 Lab / Micro Data Result Diagrams: 05/26/22 04:25 05/26/22 04:25 Labs: Laboratory Results - last 24 hr 05/25/22 12:26: POC Glucose 198 H 05/25/22 16:46: POC Glucose 204 H 05/25/22 23:06: POC Glucose 216 H 05/26/22 04:25: WBC 7.4, RBC 2.65 L, Hgb 7.9 L, Hct 27.3 L, MCV 103.0 H, MCH 29.8, MCHC 28.9 L D, RDW Std Deviation 69.1 H, RDW Coeff of Magen 18.2 H, Plt Count 69 L, MPV 11.4, Immature Gran % (Auto) 0.500, Neut % (Auto) 70.6 H, Lymph % (Auto) 14.0 L, [place] % (Auto) 8.9, Eos % (Auto) 5.6 H, Baso % (Auto) 0.4, Absolute Neuts (auto) 5.3, Absolute Lymphs (auto) 1.04, Nucleated RBC % 0 05/26/22 04:25: Sodium 148 H, Potassium 3.8, Chloride 118 H, Carbon Dioxide 27.0, Anion Gap 3 L, BUN 57 H, Creatinine 1.29 H, Estim Creat Clear Calc 37.04, Est GFR (MDRD) Af Amer 53 L, Est GFR (MDRD) Non-Af 44 L, BUN/Creatinine Ratio 44.2 H, Glucose 197 H, Calcium 8.0 L 05/26/22 04:25: Triglycerides 111 05/26/22 04:25: Total Creatine Kinase 17 L Micro: Microbiology 05/24/22 06:35 Wound - Arm Left Wound Culture - Preliminary Pseudomonas aeruginosa Staphylococcus species GPC Poss Enterococcus sp 05/24/22 06:35 Wound - Arm Left Anaerobic Culture - Preliminary 05/19/22 14:30 Blood Culture (Wb) - Port Blood Culture - Final No growth in 5 days. 05/19/22 13:45 Blood Culture (Wb) - Port Blood Culture - Final No growth in 5 days. 05/20/22 17:40 Sputum, Induced/Lukens Gram Stain - Final 05/20/22 17:40 Sputum, Induced/Lukens Respiratory Culture - Final Escherichia coli 05/19/22 22:20 Transtracheal Aspirate Gram Stain - Final 05/19/22 22:20 Transtracheal Aspirate Respiratory Culture - Final Escherichia coli 05/20/22 04:25 Urine Catheter - Knight Urine Culture - Final Culture exhibits no growth. 05/20/22 04:25 Urine Catheter - Knight Legionella Antigen - Final 05/20/22 04:25 Urine Catheter - Knight Streptococcus pneumoniae Antigen (M - Final 05/19/22 22:20 Mucosa - Nasopharyngeal Respiratory Panel (PCR) - Final Radiography Diagnostic Testing: Radiology Impression Chest X-Ray 05/26/22 08:33 IMPRESSION: Interval decrease in the right pleural effusion with mild residual blunting of both cost phrenic angles. Improved aeration at the lung bases. All the support lines are in good position. Electronically Signed: Butch Ling MD at 9:39 EDT , Rhythm Strip Rhythm Strip: A-fib Rate: 109 Ectopy: None Physical Exam Narrative General: Intubated, woke up and was following commands but increasingly agitated HEENT: Atraumatic, normocephalic Eyes: Extraocular movements intact Neck: Supple Respiratory: Mechanically ventilated Cardiovascular: Tachycardic GI: nondistended Extremities: Anasarca Musculoskeletal: Left AKA noted Neuro: Was following some commands but increasingly anxious and agitated Skin: Has some purpura on upper extremities Psych: Seems somewhat anxious Assessment & Plan Assessment/Plan (1) Septic shock: PLAN: Plan #Septic shock secondary to ESBL E. coli pneumonia -unclear etiology -cultures pending, sputum culture with 1+ gram-negative rods -cont broad spectrum abx pending final culture results -05/22: Tracheal aspirate growing ESBL, antibiotics changed to Merrem, wean levo as tolerated. Vancomycin discontinued -05/23: Continued on Merrem, still on levo. ID following, ESBL in tracheal aspirate, blood cultures from 05/19 no growth to date -05/24: Infectious disease following, remains on meropenem for ESBL. Levo being weaned as tolerated -05/25: Down to 1 mcg of levo with good MAP. On Merrem, blood cultures no growth. Arm wound culture pending 05/26:Continues to be on Merrem, levo was on hold this a.m. #Infection of left arm -05/26: Cultures growing Pseudomonas, staph species, gram-positive cocci possibly enteric coccus. Infectious disease following. Patient on Merrem at this time which does cover the Pseudomonas, further speciation further organisms pending #Chronic anemia -Chronically anemic with hemoglobin variable but today 6.8, based on trend do not think she is actively bleeding. Will receive packed red blood cells today. Transfusion goal 7 #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 May be able to tolerate Lasix tomorrow -05/25: To be given Lasix trial. Failed SBT today after 3 minutes due to low tidal volumes -05/26: Lightening sedation to help patient participate in spontaneous breathing trial, continue diuresis as tolerated #Hypernatremia and hyperchloremia -Free water flushes and tube feeds started -05/23: Somewhat improved today -05/24: Continue water with tube feeds as able however had high residuals so these have been decreased -05/25: Tube feeds being increased as tolerated #MIKE on CKD -Likely prerenal secondary to septic shock -I's and O's -05/22: Slightly improved today. Tube feeds being initiated with free water -05/23: Creatinine went from 2.27 down to 1.77, improving -05/24: Improving #Encephalopathy -likely 2/2 CO2 retention -Presently intubated #Type 2 diabetes mellitus -Continue insulin sliding scale #Atrial fibrillation -Eliquis held, Cardizem and metoprolol held due to septic shock -05/22: Amiodarone drip -05/26: Amio 200 mg twice daily down NG tube #Hypothyroidism -Synthroid #Coronary artery disease status post stenting -on asa, statin not on home med list, ultimately will benefit if no contraindication #Dry gangrene of left leg status post recent AKA -Continue to monitor #DVT ppx: SCDs Coco Romero MD Time spent in the patient's overall evaluation,decision-making process, review of diagnostic data, adjustment of management, discussion with other providers, nursing nursing and ancillary staff involved in patient's care documentation, 30 minutes Charges/Coding Visit Charges Inpatient E&M: 17716 Subs Hosp L2
[2022-05-26 10:11] LABS: Allen Test Positive; Base Excess 2 mmol/L (-2 to +2); Bicarbonate 26.4 mmol/L (22-26); Blood Gas Specimen Type ART; FI02 40; Mode AC; O2 Delivery Device Adult Vent; PEEP 8; PO2 69 mmHG (75-100); RR 16; SITE R Radial; SO2 93 % (95-99); Total Carbon Dioxide 28 mmol/L; Vt 350; pCO2 43.6 mmHg (35-45); pH 7.39 (7.35-7.45)
[2022-05-26] MEDS: Furosemide 500 MG in Empty Viaflex 50 mL 1 EACH CONT INF (11:08)
[2022-05-26 12:06] LABS: Bedside Glucose 187 mg/dL (74-106)
[2022-05-26] MEDS: Heparin Injection (Vial) 5,000 UNIT/ML VIAL 5000 UNIT SC ×2 (14:32→21:02)
--- NOTE | 2022-05-26 14:49 | PCM.RX.CS ---
Consult Pharmacy has been consulted to manage selected antiobiotic: Vancomycin Type of Consult: New start Labs: Sodium 148 mmol/L (136-145) H 05/26/22 04:25 Potassium 3.8 mmol/L (3.5-5.1) 05/26/22 04:25 Chloride 118 mmol/L (98-107) H 05/26/22 04:25 Carbon Dioxide 27.0 mmol/L (21.0-32.0) 05/26/22 04:25 Anion Gap 3 (5-15) L 05/26/22 04:25 BUN 57 mg/dL (7-18) H 05/26/22 04:25 Creatinine 1.29 mg/dL (0.55-1.02) H 05/26/22 04:25 Est GFR (MDRD) Af Amer 53 mL/min (>60) L 05/26/22 04:25 Est GFR (MDRD) Non-Af 44 mL/min (>60) L 05/26/22 04:25 BUN/Creatinine Ratio 44.2 RATIO (10-20) H 05/26/22 04:25 Glucose 197 mg/dL (74-106) H 05/26/22 04:25 Random Vancomycin 20.2 ug/mL (0.0-15.0) H 05/22/22 03:10 Microbiology: Microbiology 05/24/22 06:35 Wound - Arm Left Gram Stain - Final 05/24/22 06:35 Wound - Arm Left Wound Culture - Preliminary Pseudomonas aeruginosa Staphylococcus species GPC Poss Enterococcus sp 05/19/22 14:30 Blood Culture (Wb) - Port Blood Culture - Final No growth in 5 days. 05/19/22 13:45 Blood Culture (Wb) - Port Blood Culture - Final No growth in 5 days. 05/20/22 17:40 Sputum, Induced/Lukens Gram Stain - Final 05/20/22 17:40 Sputum, Induced/Lukens Respiratory Culture - Final Escherichia coli 05/19/22 22:20 Transtracheal Aspirate Gram Stain - Final 05/19/22 22:20 Transtracheal Aspirate Respiratory Culture - Final Escherichia coli 05/20/22 04:25 Urine Catheter - Knight Urine Culture - Final Culture exhibits no growth. 05/20/22 04:25 Urine Catheter - Knight Legionella Antigen - Final 05/20/22 04:25 Urine Catheter - Knight Streptococcus pneumoniae Antigen (M - Final 05/19/22 22:20 Mucosa - Nasopharyngeal Respiratory Panel (PCR) - Final Weight used for dosin.1 kg Estimated Creatinine Clearance: 49.7ML/MIN Goal Trough: 15-20 mcg/mL Pharmacy Plan for Drug Dosing: Give vanc 2000mg IV x1 loading dose as ordered, then continue with 500mg IV q24h, which is the latest dose from a recent admission here. The patient did get a 2000mg X1 dose about a week ago when her renal function was worse but that was then discontinued so will load again today as ordered. Will check a trough before the 3rd dose on 05/28/22. The patient's CrCl of 49.7ml/min was calculated using an adjusted body weight. Pharmacy Service will continue to monitor and adjust dosing as required. Follow-Up Labs: Trough Vancomycin Labs to be done on [date and time ordered]: 05/28/22 13:30
--- NOTE | 2022-05-26 14:53 | PCM.PN.ID ---
Physical Exam Narrative Awake on vent, off pressors, no fever, asking for water Const alert and no apparent distress Resp normal air movement and clear to auscultation bilaterally Cardio Rate: tachycardic GI soft to palpation, non-tender and non-distended Skin Skin Narrative: L antecub less red ID ID: Route of nutrition/ use of supplements: [] Nutritional Intake: [] IV Site: [] Knight Catheter: [] Assessment & Plan Assessment/Plan (1) Septic shock: PLAN: Septic shock due to ESBL ecoli pneumonia - cont on meropenem. Remains on vent and now off pressor. MIKE improving. L antecub wound cx with PsA, staph, and enterococcus. Will add vanc until GPCs are fully identified. Will follow (2) MIKE (acute kidney injury): (3) Anasarca:
[2022-05-26 16:29] LABS: Absolute Lymphocyte Count 0.81 X10^3/uL (0.83-4.51); Absolute Neutrophil Count 6.7 X10^3/uL (2.0-7.7); Basophil# 0.02 X10^3/uL; Basophil% 0.2 % (0-1); Eosinophil# 0.53 X10^3/uL; Hematocrit 32.3 % (37-47); Hemoglobin 9.6 g/dL (12.0-15.0); Lymphocyte # 0.81 X10^3/ul (0.83-4.51); Lymphocyte % 9.2 % (19-41); Mean Corp Hgb Conc 29.7 g/dL (32-36); Mean Corpuscular Hgb 29.8 pg (27.0-32.0); Mean Corpuscular Volume 100.3 fL (81-99); Mean Platelet Vol. 11.4 fl (6.2-12.0); NRBC Flagged by Analyzer 0 % (0-5); Neutrophil # 6.67 X10^3/uL (2.7-7.7); POSITIVE COUNT YES; POSITIVE MORPHOLOGY YES; Platelet Count 78 K/mm3 (150-450); RBC Distribution Width CV 18.6 % (11.6-14.6); RBC Distribution Width SD 67.9 fl (35.1-43.9); Red Blood Count 3.22 M/mm3 (4.2-5.4); White Blood Count 8.8 K/mm3 (4.4-11.0)
[2022-05-26 16:40] LABS: Anion Gap 5 (5-15); BUN 56 mg/dL (7-18); BUN/Creat Ratio 47.5 RATIO (10-20); Calcium,Total 8.2 mg/dL (8.5-10.1); Chloride 117 mmol/L (98-107); Creatinine, Serum 1.18 mg/dL (0.55-1.02); EST Glomerular Filtration Rate 49 mL/min (>60); Est Glom Filt Rate - Afr Amer 59 mL/min (>60); Glucose 232 mg/dL (74-106); Potassium 3.6 mmol/L (3.5-5.1); Sodium Level 147 mmol/L (136-145)
[2022-05-26 16:43] LABS: Differential Indicated SCAN CRITERIA MET
[2022-05-26 16:44] LABS: Differential Comment SCANNED; Polychromasia RARE
--- NOTE | 2022-05-26 16:56 | CASEMGMT ---
Social Work Updated clinical sent to [place] via [facility]. JAYY Tijerina
[2022-05-26 18:10] LABS: Bedside Glucose 219 mg/dL (74-106)
[2022-05-26] MEDS: Mirtazapine 15 MG Tablet GT (21:02)
[2022-05-27] VITALS (33 sets, daily range): BP systolic 101–135; BP diastolic 58–93; PULSE 88–118; RESP 10–20; TEMP 36.2–37.1; O2SAT 92–99; BMI 36.3
[2022-05-27] MEDS: CHLORHEXIDINE GLUC 2% CLOTH 1 EACH TOWELETTE TOPICAL (00:41)
[2022-05-27] MEDS: Insulin Lispro 100 UNIT/ML INSULN.PEN SC ×4 (00:41→17:44)
[2022-05-27 01:00] LABS: Bedside Glucose 220 mg/dL (74-106)
--- NOTE | 2022-05-27 02:45 | NURSING ---
Fentanyl placed on hold for SAT/SBT, pt informed.
[2022-05-27] MEDS: Ipratropium/Albuterol Sulfate 3 ML AMPUL.NEB INHALATION ×6 (03:30→23:14)
[2022-05-27 04:33] LABS: ALB/GLOB Ratio 0.4 RATIO (0.9-2.4); AST(SGOT) 18 U/L (15-37); Alanine Aminotransfer ALT/SGPT 8 U/L (13-56); Albumin, Serum 1.3 g/dL (3.2-5.0); Alkaline Phosphatase 140 U/L (45-117); Anion Gap 4 (5-15); BUN 56 mg/dL (7-18); Calcium,Total 8.2 mg/dL (8.5-10.1); Chloride 118 mmol/L (98-107); Creatinine, Serum 1.12 mg/dL (0.55-1.02); EST Glomerular Filtration Rate 52 mL/min (>60); Est Glom Filt Rate - Afr Amer 63 mL/min (>60); Estimated Creatinine Clearance 42.67 ml/min; Globulin 3.6 g/dL (2.2-4.2); Glucose 236 mg/dL (74-106); Potassium 3.4 mmol/L (3.5-5.1); Protein, Total 4.9 g/dL (6.4-8.2); Sodium Level 148 mmol/L (136-145); Thyroid Stim Hormone (TSH) 8.93 uIU/mL (0.358-3.74)
[2022-05-27 05:25] LABS: Absolute Lymphocyte Count 0.83 X10^3/uL (0.83-4.51); Absolute Neutrophil Count 5.5 X10^3/uL (2.0-7.7); Basophil# 0.03 X10^3/uL; Basophil% 0.4 % (0-1); Eosinophil# 0.55 X10^3/uL; Eosinophils% 7.2 % (0-5); Hematocrit 29.2 % (37-47); Hemoglobin 8.5 g/dL (12.0-15.0); Lymphocyte # 0.83 X10^3/ul (0.83-4.51); Lymphocyte % 10.9 % (19-41); Mean Corp Hgb Conc 29.1 g/dL (32-36); Mean Corpuscular Hgb 29.5 pg (27.0-32.0); Mean Corpuscular Volume 101.4 fL (81-99); Mean Platelet Vol. 11.7 fl (6.2-12.0); Monocyte# 0.68 X10^3/uL; Monocyte% 8.9 % (0-10); NRBC Flagged by Analyzer 0 % (0-5); Neutrophil # 5.51 X10^3/uL (2.7-7.7); Neutrophil % 72.1 % (47-70); POSITIVE COUNT YES; POSITIVE MORPHOLOGY YES; Platelet Count 84 K/mm3 (150-450); RBC Distribution Width CV 18.7 % (11.6-14.6); RBC Distribution Width SD 69.3 fl (35.1-43.9); Red Blood Count 2.88 M/mm3 (4.2-5.4); White Blood Count 7.6 K/mm3 (4.4-11.0)
[2022-05-27 05:32] LABS: Differential Indicated SCAN CRITERIA MET
[2022-05-27 05:46] LABS: Anisocytosis 1+; Differential Comment SCANNED; Macrocytosis 1+; Platelet Estimate MOD DEC (ADEQ)
[2022-05-27] MEDS: 0.9% Saline Lock 10 ML Syringe IV (06:15)
[2022-05-27] MEDS: Levothyroxine 125 MCG Tablet GT (06:18)
[2022-05-27] MEDS: Heparin Injection (Vial) 5,000 UNIT/ML VIAL 5000 UNIT SC ×3 (06:18→21:47)
[2022-05-27 08:46] LABS: Base Excess 0 mmol/L (-2 to +2); Bicarbonate 26.5 mmol/L (22-26); Blood Gas Specimen Type ART; FI02 40; Mode CPAP/PS; PEEP 8; PO2 95 mmHG (75-100); PS 8; SITE R Radial; SO2 97 % (95-99); Total Carbon Dioxide 28 mmol/L; pCO2 51.3 mmHg (35-45); pH 7.32 (7.35-7.45)
--- NOTE | 2022-05-27 09:30 | PN.HOSP_ITS ---
Reason for Visit Reason for Visit: Diagnoses Sepsis, unspecified organism (05/19/22) Anemia, unspecified (05/19/22) Other toxic encephalopathy (05/19/22) Pneumonia, unspecified organism (05/19/22) Acute and chronic respiratory failure with hypoxia (05/19/22) Acute and chronic respiratory failure with hypercapnia (05/19/22) Acute kidney failure, unspecified (05/19/22) Generalized edema (05/19/22) Severe sepsis without septic shock (05/19/22) Severe sepsis with septic shock (05/19/22) Bacteremia (05/19/22) Subjective Subjective Resting comfortably on SBT today. Less anxious today during exam Objective Data Objective Data Vital Signs: Vital Signs Temp Pulse Resp BP Pulse Ox O2 Del Method O2 Flow Rate 97.1 F L 110 H 16 109/65 94 Mechanical Ventilator 15 05/27/22 08:00 05/27/22 09:00 05/27/22 09:00 05/27/22 09:00 05/27/22 09:00 05/27/22 09:00 05/20/22 09:00 FiO2 40 05/27/22 09:00 Oxygen Flow Rate (L/min) 15 Oxygen Delivery Method Mechanical Ventilator Weight: 99.1 kg Body Mass Index (BMI) 36.3 Intake & Output: Intake and Output for Last 24 Hours 05/25/22 05/26/22 05/27/22 23:59 23:59 23:59 Intake Total 2715.27 / 2971.07 3472.09 / 3602.09 1288.75 / 1288.75 Output Total 700 / 1000 1850 / 1850 750 / 750 Balance 1622.09 / 1752.09 538.75 / 538.75 Lab / Micro Data Result Diagrams: 05/27/22 04:00 05/27/22 04:00 Labs: Laboratory Results - last 24 hr 05/24/22 06:30: Crossmatch See Detail 05/26/22 11:05: POC Glucose 187 H 05/26/22 16:15: WBC 8.8, RBC 3.22 L, Hgb 9.6 L, Hct 32.3 L, MCV 100.3 H, MCH 29.8, MCHC 29.7 L, RDW Std Deviation 67.9 H, RDW Coeff of Magen 18.6 H, Plt Count 78 L, MPV 11.4, Immature Gran % (Auto) 0.600, Neut % (Auto) 76.0 H, Lymph % (Auto) 9.2 L, [place] % (Auto) 8.0, Eos % (Auto) 6.0 H, Baso % (Auto) 0.2, Absolute Neuts (auto) 6.7, Absolute Lymphs (auto) 0.81 L, Nucleated RBC % 0, Differential Comment SCANNED, Polychromasia RARE 05/26/22 16:15: Sodium 147 H, Potassium 3.6, Chloride 117 H, Carbon Dioxide 25.0, Anion Gap 5, BUN 56 H, Creatinine 1.18 H, Estim Creat Clear Calc 40.50, Est GFR (MDRD) Af Amer 59 L, Est GFR (MDRD) Non-Af 49 L, BUN/Creatinine Ratio 47.5 H, Glucose 232 H, Calcium 8.2 L 05/26/22 17:40: POC Glucose 219 H 05/27/22 00:39: POC Glucose 220 H 05/27/22 04:00: WBC 7.6, RBC 2.88 L, Hgb 8.5 L, Hct 29.2 L, MCV 101.4 H, MCH 29.5, MCHC 29.1 L, RDW Std Deviation 69.3 H, RDW Coeff of Magen 18.7 H, Plt Count 84 L, MPV 11.7, Immature Gran % (Auto) 0.500, Neut % (Auto) 72.1 H, Lymph % (Auto) 10.9 L, [place] % (Auto) 8.9, Eos % (Auto) 7.2 H, Baso % (Auto) 0.4, Absolute Neuts (auto) 5.5, Absolute Lymphs (auto) 0.83, Nucleated RBC % 0, Differential Comment SCANNED, Platelet Estimate MOD DEC, Anisocytosis 1+, Macrocytosis 1+ 05/27/22 04:00: Sodium 148 H, Potassium 3.4 L, Chloride 118 H, Carbon Dioxide 26.0, Anion Gap 4 L, BUN 56 H, Creatinine 1.12 H, Estim Creat Clear Calc 42.67, Est GFR (MDRD) Af Amer 63, Est GFR (MDRD) Non-Af 52 L, BUN/Creatinine Ratio 50.0 H, Glucose 236 H, Calcium 8.2 L, Total Bilirubin 0.40, AST 18, ALT 8 L, Alkaline Phosphatase 140 H, Total Protein 4.9 L, Albumin 1.3 L, Globulin 3.6, Albumin/Globulin Ratio 0.4 L, TSH 8.93 H 05/27/22 04:00: Phosphorus 1.0 L* Micro: Microbiology 05/24/22 06:35 Wound - Arm Left Gram Stain - Final 05/24/22 06:35 Wound - Arm Left Wound Culture - Final Pseudomonas aeruginosa Staphylococcus haemolyticus Staphylococcus epidermidis 05/24/22 06:35 Wound - Arm Left Anaerobic Culture - Final No anaerobic bacteria isolated. 05/19/22 14:30 Blood Culture (Wb) - Port Blood Culture - Final No growth in 5 days. 05/19/22 13:45 Blood Culture (Wb) - Port Blood Culture - Final No growth in 5 days. 05/20/22 17:40 Sputum, Induced/Lukens Gram Stain - Final 05/20/22 17:40 Sputum, Induced/Lukens Respiratory Culture - Final Escherichia coli 05/19/22 22:20 Transtracheal Aspirate Gram Stain - Final 05/19/22 22:20 Transtracheal Aspirate Respiratory Culture - Final Escherichia coli 05/20/22 04:25 Urine Catheter - Knight Urine Culture - Final Culture exhibits no growth. 05/20/22 04:25 Urine Catheter - Knight Legionella Antigen - Final 05/20/22 04:25 Urine Catheter - Knight Streptococcus pneumoniae Antigen (M - Final 05/19/22 22:20 Mucosa - Nasopharyngeal Respiratory Panel (PCR) - Final ABG Data ABG results: ABG 05/26/22 05/27/22 10:06 08:39 Specimen Type ART ART Sample Site R Radial R Radial pH 7.39 7.32 L Bicarbonate Actual 26.4 H 26.5 H Total CO2 28 28 Base Excess 2 0 O2 Saturation 93 L 97 O2 % 40 40 ABG pCO2 43.6 51.3 H ABG pO2 69 L 95 Hussain Test Positive Respiration Rate 16 O2 Delivery Device Adult Vent Vent Mode AC CPAP/PS Tidal Volume 350 POC PEEP 8 8 POC Pressure Suppt 8 Radiography Diagnostic Testing: Radiology Impression Chest X-Ray 05/26/22 08:33 IMPRESSION: Interval decrease in the right pleural effusion with mild residual blunting of both cost phrenic angles. Improved aeration at the lung bases. All the support lines are in good position. Electronically Signed: Butch Ling MD at 9:39 EDT , Rhythm Strip Rhythm Strip: A-fib Rate: 109 Ectopy: None Physical Exam Narrative General: Intubated, less anxious today HEENT: Atraumatic, normocephalic Eyes: Eyes resting comfortably Neck: Supple Respiratory: Mechanically ventilated Cardiovascular: Not tachycardic at the time of exam GI: nondistended Extremities: Anasarca Musculoskeletal: Left AKA noted Neuro: Moves right foot, was much less anxious but somewhat less interactive Skin: Has some purpura on upper extremities Psych: Less anxious Assessment & Plan Assessment/Plan (1) Septic shock: PLAN: Plan #Septic shock secondary to ESBL E. coli pneumonia -unclear etiology -cultures pending, sputum culture with 1+ gram-negative rods -cont broad spectrum abx pending final culture results -05/22: Tracheal aspirate growing ESBL, antibiotics changed to Merrem, wean levo as tolerated. Vancomycin discontinued -05/23: Continued on Merrem, still on levo. ID following, ESBL in tracheal aspirate, blood cultures from 05/19 no growth to date -05/24: Infectious disease following, remains on meropenem for ESBL. Levo being weaned as tolerated -05/25: Down to 1 mcg of levo with good MAP. On Merrem, blood cultures no growth. Arm wound culture pending 05/26:Continues to be on Merrem, levo was on hold this a.m. 05/27: Off norepinephrine, heart rate improving as his blood pressure. On SBT at time of exam. On Merrem and vancomycin. #Infection of left arm -05/26: Cultures growing Pseudomonas, staph species, gram-positive cocci possibly enteric coccus. Infectious disease following. Patient on Merrem at this time which does cover the Pseudomonas, further speciation further organisms pending -05/27: Wound culture growing Pseudomonas, staph hemolyticus, Staph epidermidis. Pseudomonas sensitive to Merrem, staph epi and staph hemolyticus sensitive to vancomycin. Patient remains on Merrem and vancomycin, ID managing #Chronic anemia -Chronically anemic with hemoglobin variable but today 6.8, based on trend do not think she is actively bleeding. Will receive packed red blood cells today. Transfusion goal 7 -05/27: Hemoglobin 8.5 today #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 May be able to tolerate Lasix tomorrow -05/25: To be given Lasix trial. Failed SBT today after 3 minutes due to low tidal volumes -05/26: Lightening sedation to help patient participate in spontaneous breathing trial, continue diuresis as tolerated -05/27: On IV Lasix. Daily weights #Hypernatremia and hyperchloremia -Free water flushes and tube feeds started -05/23: Somewhat improved today -05/24: Continue water with tube feeds as able however had high residuals so these have been decreased -05/25: Tube feeds being increased as tolerated #MIKE on CKD -Likely prerenal secondary to septic shock -I's and O's -05/22: Slightly improved today. Tube feeds being initiated with free water -05/23: Creatinine went from 2.27 down to 1.77, improving -05/24: Improving #Encephalopathy -likely 2/2 CO2 retention -Presently intubated #Type 2 diabetes mellitus -Continue insulin sliding scale -05/27: If glucose remains elevated we will need to add long-acting insulin but wa nt to be careful to avoid hypoglycemia #Atrial fibrillation -Eliquis held, Cardizem and metoprolol held due to septic shock -05/22: Amiodarone drip -05/26: Amio 200 mg twice daily down NG tube -05/27: Heart rate improving, platelets did improve somewhat today. If hemoglobin remains stable and platelets continue to improve we will be able to resume Eliquis #Hypothyroidism -Synthroid -TSH elevated, will check free T4, difficult to tell if this is due to an adequate dose of levothyroxine or due to her critical illness #Coronary artery disease status post stenting -on asa, statin not on home med list, ultimately will benefit if no contraindication #Dry gangrene of left leg status post recent AKA -Continue to monitor #DVT ppx: SCDs, heparin subcu Coco Romero MD Time spent in the patient's overall evaluation,decision-making process, review of diagnostic data, adjustment of management, discussion with other providers, nursing nursing and ancillary staff involved in patient's care documentation, 30 minutes Charges/Coding Visit Charges Inpatient E&M: 39872 Subs Hosp L2
[2022-05-27] MEDS: Juven (unflavored) Packet 1 PACKET GT ×2 (09:32→17:44)
[2022-05-27] MEDS: Amiodarone 200 MG Tablet PO ×2 (09:32→21:47)
[2022-05-27] MEDS: Aspirin 81 MG TAB.CHEW GT (09:33)
[2022-05-27] MEDS: Ferrous Sulfate 325 MG Tablet GT (09:33)
[2022-05-27] MEDS: Menthol/Lanolin/Calamine/Znox 113 GM Tube 1 APPLIC TOPICAL ×2 (09:33→21:57)
[2022-05-27] MEDS: Paroxetine 20 MG Tablet GT (09:33)
[2022-05-27] MEDS: Chlorhexidine 15 ML PO ×2 (09:34→21:48)
[2022-05-27] MEDS: Vital AF 1.2 Cal Liquid 1,000 ML 45 ML GT (09:41)
[2022-05-27 10:46] LABS: T4 Free Direct 1.72 ng/dL (0.76-1.46)
[2022-05-27] MEDS: Vancomycin IV 500 MG/100 ML BAG 100 MG IV (15:13)
[2022-05-27 15:26] LABS: Bedside Glucose 179 mg/dL (74-106)
--- NOTE | 2022-05-27 16:44 | PCM.PN.INT ---
Assessment & Plan Assessment/Plan (1) Acute on chronic respiratory failure with hypoxia and hypercapnia: PLAN: Patient is gradually waking up, but is still not able to maintain her own airway cough and clear her secretions. She is slowly improving every day however. - Continue SBT daily to twice daily - Encourage patient to cough - If she is not able to be extubated by early to mid next week, she should have a tracheostomy placed - The family has been minimally interested, the POA has not been returning the staff's calls, and its been difficult to get family to see the patient and assist with medical decision making. (2) Atrial fibrillation with rapid ventricular response: PLAN: Continue current management (3) On mechanically assisted ventilation: PLAN: Continue ventilator, expect extubation in 48 to 72 hours (4) Toxic metabolic encephalopathy: PLAN: Slowly improving (5) Thrombocytopenia: PLAN: Heparin stopped today due to low platelets - HIT assay - Vitamin K 5 mg IV x1 for INR of 17, and 5 mg NG tube daily x2 beginning tomorrow (6) Acute encephalopathy: PLAN: Slowly improving, likely due to delayed metabolism of sedation medication (7) Pneumonia involving right lung: PLAN: Patient is afebrile white count normalized. Continue 8 to 10 days of treatment - Follow chest x-ray daily while on ventilator (8) COPD exacerbation: PLAN: Routine management (9) Type 2 diabetes mellitus with foot ulcer: PLAN: Management by primary PLAN: Plan Critical care time: 35 minutes Subjective Subjective Patient is awake and cooperating, she failed another breathing trial today. Follows commands, but unable to cough adequately to keep her airway clear. Still requiring suction. The POA has not been available to attend a family meeting requested for the past 2 days. Her daughter called the unit today and was updated by nursing staff, and was asked to relay the need to meet for goals of care since the patient will possibly need a tracheostomy next week. Objective Data Objective Data Vital Signs: Vital Signs Temp Pulse Resp BP Pulse Ox O2 Del Method O2 Flow Rate 98.7 F 108 H 10 L 103/58 L 98 Mechanical Ventilator 15 05/27/22 12:00 05/27/22 15:00 05/27/22 15:00 05/27/22 15:00 05/27/22 15:00 05/27/22 15:00 05/20/22 09:00 FiO2 40 05/27/22 15:00 Oxygen Flow Rate (L/min) 15 Oxygen Delivery Method Mechanical Ventilator Weight: 218 lb 7.649 oz Body Mass Index (BMI) 36.3 Intake & Output: Intake and Output for Last 24 Hours 05/25/22 05/26/22 05/27/22 23:59 23:59 23:59 Intake Total 2715.27 / 2971.07 3472.09 / 3602.09 2533.2032 / Output Total 700 / 1000 1850 / 1850 880 / 880 Balance 1622.09 / 1752.09 1653.2032 / 165 Lab / Micro Data Result Diagrams: 05/27/22 04:00 05/27/22 04:00 Labs: Laboratory Results - last 24 hr 05/26/22 16:15: Differential Comment SCANNED, Polychromasia RARE 05/26/22 17:40: POC Glucose 219 H 05/27/22 00:39: POC Glucose 220 H 05/27/22 04:00: WBC 7.6, RBC 2.88 L, Hgb 8.5 L, Hct 29.2 L, MCV 101.4 H, MCH 29.5, MCHC 29.1 L, RDW Std Deviation 69.3 H, RDW Coeff of Magen 18.7 H, Plt Count 84 L, MPV 11.7, Immature Gran % (Auto) 0.500, Neut % (Auto) 72.1 H, Lymph % (Auto) 10.9 L, [place] % (Auto) 8.9, Eos % (Auto) 7.2 H, Baso % (Auto) 0.4, Absolute Neuts (auto) 5.5, Absolute Lymphs (auto) 0.83, Nucleated RBC % 0, Differential Comment SCANNED, Platelet Estimate MOD DEC, Anisocytosis 1+, Macrocytosis 1+ 05/27/22 04:00: Sodium 148 H, Potassium 3.4 L, Chloride 118 H, Carbon Dioxide 26.0, Anion Gap 4 L, BUN 56 H, Creatinine 1.12 H, Estim Creat Clear Calc 42.67, Est GFR (MDRD) Af Amer 63, Est GFR (MDRD) Non-Af 52 L, BUN/Creatinine Ratio 50.0 H, Glucose 236 H, Calcium 8.2 L, Total Bilirubin 0.40, AST 18, ALT 8 L, Alkaline Phosphatase 140 H, Total Protein 4.9 L, Albumin 1.3 L, Globulin 3.6, Albumin/Globulin Ratio 0.4 L, TSH 8.93 H 05/27/22 04:00: Phosphorus 1.0 L* 05/27/22 04:00: Free T4 1.72 H 05/27/22 12:38: POC Glucose 179 H Micro: Microbiology 05/24/22 06:35 Wound - Arm Left Gram Stain - Final 05/24/22 06:35 Wound - Arm Left Wound Culture - Final Pseudomonas aeruginosa Staphylococcus haemolyticus Staphylococcus epidermidis 05/24/22 06:35 Wound - Arm Left Anaerobic Culture - Final No anaerobic bacteria isolated. 05/19/22 14:30 Blood Culture (Wb) - Port Blood Culture - Final No growth in 5 days. 05/19/22 13:45 Blood Culture (Wb) - Port Blood Culture - Final No growth in 5 days. 05/20/22 17:40 Sputum, Induced/Lukens Gram Stain - Final 05/20/22 17:40 Sputum, Induced/Lukens Respiratory Culture - Final Escherichia coli 05/19/22 22:20 Transtracheal Aspirate Gram Stain - Final 05/19/22 22:20 Transtracheal Aspirate Respiratory Culture - Final Escherichia coli 05/20/22 04:25 Urine Catheter - Knight Urine Culture - Final Culture exhibits no growth. 05/20/22 04:25 Urine Catheter - Knight Legionella Antigen - Final 05/20/22 04:25 Urine Catheter - Knight Streptococcus pneumoniae Antigen (M - Final 05/19/22 22:20 Mucosa - Nasopharyngeal Respiratory Panel (PCR) - Final ABG Data ABG results: ABG 05/27/22 08:39 Specimen Type ART Sample Site R Radial pH 7.32 L Bicarbonate Actual 26.5 H Total CO2 28 Base Excess 0 O2 Saturation 97 O2 % 40 ABG pCO2 51.3 H ABG pO2 95 Vent Mode CPAP/PS POC PEEP 8 POC Pressure Suppt 8 Interpretation: Patient failed today's SBT on PS 8, PEEP 8 as demonstrated by acute respiratory acidosis with adequate oxygenation, above. Radiography Diagnostic Testing: Portable chest x-ray fo 05/26/2022: Chest 1 View IMPRESSION: Interval decrease in the right pleural effusion with mild residual blunting of both cost phrenic angles. Improved aeration at the lung bases. All the support lines are in good position. Rhythm Strip Rhythm Strip: A-fib Rate: 109 Ectopy: None Physical Exam Narrative Well-developed well-nourished no acute distress Awake and alert with a RASS of 0 to +1 on mechanical ventilation. HEENT with minimal secretions with suctioning Chest is diminished, breathing unlabored, unchanged Heart normal S1-S2 with no murmurs, atrial fibrillation. Abdomen is soft nontender Extremities have no clubbing, status post left BKA with maribel out. Charges/Coding Procedures Hospitalists Procedures: 50105 Critial Care 1st Hr
[2022-05-27 17:31] LABS: Bedside Glucose 235 mg/dL (74-106)
[2022-05-27] MEDS: Mirtazapine 15 MG Tablet GT (21:47)
[2022-05-28] VITALS (34 sets, daily range): BP systolic 88–146; BP diastolic 50–124; PULSE 94–127; RESP 10–21; TEMP 36.1–36.9; O2SAT 90–98; BMI 36.4
[2022-05-28] MEDS: Insulin Lispro 100 UNIT/ML INSULN.PEN SC ×4 (00:52→18:09)
[2022-05-28] MEDS: Furosemide 500 MG in Empty Viaflex 50 mL 1 EACH CONT INF (00:53)
[2022-05-28 01:16] LABS: Bedside Glucose 235 mg/dL (74-106)
[2022-05-28] MEDS: Ipratropium/Albuterol Sulfate 3 ML AMPUL.NEB INHALATION ×5 (03:13→23:10)
[2022-05-28 03:56] LABS: Absolute Lymphocyte Count 0.85 X10^3/uL (0.83-4.51); Absolute Neutrophil Count 6.4 X10^3/uL (2.0-7.7); Basophil# 0.03 X10^3/uL; Basophil% 0.3 % (0-1); Eosinophil# 0.79 X10^3/uL; Hematocrit 29.6 % (37-47); Hemoglobin 8.7 g/dL (12.0-15.0); Lymphocyte # 0.85 X10^3/ul (0.83-4.51); Lymphocyte % 9.7 % (19-41); Mean Corp Hgb Conc 29.4 g/dL (32-36); Mean Corpuscular Hgb 30.1 pg (27.0-32.0); Mean Corpuscular Volume 102.4 fL (81-99); Mean Platelet Vol. 11.2 fl (6.2-12.0); Monocyte# 0.66 X10^3/uL; Monocyte% 7.6 % (0-10); NRBC Flagged by Analyzer 0 % (0-5); Neutrophil # 6.38 X10^3/uL (2.7-7.7); Neutrophil % 73.1 % (47-70); POSITIVE MORPHOLOGY YES; Platelet Count 106 K/mm3 (150-450); RBC Distribution Width CV 18.1 % (11.6-14.6); Red Blood Count 2.89 M/mm3 (4.2-5.4); White Blood Count 8.7 K/mm3 (4.4-11.0)
[2022-05-28 04:05] LABS: Differential Indicated SCAN CRITERIA MET
[2022-05-28 04:30] LABS: ALB/GLOB Ratio 0.4 RATIO (0.9-2.4); AST(SGOT) 14 U/L (15-37); Alanine Aminotransfer ALT/SGPT 9 U/L (13-56); Albumin, Serum 1.4 g/dL (3.2-5.0); Alkaline Phosphatase 148 U/L (45-117); Anion Gap 2 (5-15); BUN 58 mg/dL (7-18); BUN/Creat Ratio 52.3 RATIO (10-20); Calcium,Total 7.8 mg/dL (8.5-10.1); Chloride 116 mmol/L (98-107); Creatinine, Serum 1.11 mg/dL (0.55-1.02); EST Glomerular Filtration Rate 52 mL/min (>60); Est Glom Filt Rate - Afr Amer 63 mL/min (>60); Estimated Creatinine Clearance 43.05 ml/min; Globulin 3.7 g/dL (2.2-4.2); Glucose 218 mg/dL (74-106); Potassium 3.4 mmol/L (3.5-5.1); Protein, Total 5.1 g/dL (6.4-8.2); Sodium Level 146 mmol/L (136-145); Thyroid Stim Hormone (TSH) 9.36 uIU/mL (0.358-3.74)
[2022-05-28 04:47] LABS: Phosphorus 2.5 mg/dL (2.5-4.9)
[2022-05-28 05:00] LABS: Anisocytosis 1+; Differential Comment SCANNED; Hypochromasia RARE; Macrocytosis 1+
[2022-05-28] MEDS: CHLORHEXIDINE GLUC 2% CLOTH 1 EACH TOWELETTE TOPICAL (05:42)
[2022-05-28] MEDS: 0.9% Saline Lock 10 ML Syringe IV ×2 (05:42→21:09)
[2022-05-28] MEDS: Heparin Injection (Vial) 5,000 UNIT/ML VIAL 5000 UNIT SC ×3 (05:43→21:12)
[2022-05-28] MEDS: Levothyroxine 125 MCG Tablet GT (05:43)
[2022-05-28 06:10] LABS: Base Excess 0 mmol/L (-2 to +2); Bicarbonate 24.2 mmol/L (22-26); FI02 35; Mode BIVENT; O2 Delivery Device Adult Vent; PEEP 8; PO2 37 mmHG (75-100); PS 5; SITE R Radial; SO2 73 % (95-99); Total Carbon Dioxide 25 mmol/L; pCO2 36.9 mmHg (35-45); pH 7.42 (7.35-7.45)
--- NOTE | 2022-05-28 06:12 | CPS ---
Critical ABG values, Dr. Esparza aware
--- NOTE | 2022-05-28 06:16 | CPS ---
Critical abg values, Dr. Esparza aware. Not enough bood for re-run.
[2022-05-28 06:18] LABS: Blood Gas Specimen Type VEN
--- NOTE | 2022-05-28 07:35 | RAD_ITS ---
STUDY: X-RAY CHEST REASON FOR EXAM: Female, 67 years old. Respiratory distress TECHNIQUE: Frontal view of the chest COMPARISON: 05/26/2022 FINDINGS: The support lines and tubes are unchanged. There are stable small bilateral pleural effusions. There are stable mild congestive changes. There are no focal infiltrates. The heart is enlarged, but stable in size. The visualized osseous structures are within normal limits. RAD/Chest 1 View (Portable) IMPRESSION: Stable exam Electronically Signed: Jose F Jack MD at 9:09 EDT ,
--- NOTE | 2022-05-28 08:35 | PCM.PN.HOSP ---
Reason for Visit Reason for Visit: Diagnoses Sepsis, unspecified organism (05/19/22) Anemia, unspecified (05/19/22) Thrombocytopenia, unspecified (05/19/22) Type 2 diabetes mellitus with foot ulcer (05/19/22) Other toxic encephalopathy (05/19/22) Encephalopathy, unspecified (05/19/22) Unspecified atrial fibrillation (05/19/22) Pneumonia, unspecified organism (05/19/22) Chronic obstructive pulmonary disease with (acute) exacerbation (05/19/22) Acute and chronic respiratory failure with hypoxia (05/19/22) Acute and chronic respiratory failure with hypercapnia (05/19/22) Non-pressure chronic ulcer of other part of unspecified foot with unspecified severity (05/19/22) Acute kidney failure, unspecified (05/19/22) Generalized edema (05/19/22) Severe sepsis without septic shock (05/19/22) Severe sepsis with septic shock (05/19/22) Bacteremia (05/19/22) Dependence on respirator [ventilator] status (05/19/22) Subjective Subjective Remains on ventilator, has been unable to be weaned. Objective Data Objective Data Vital Signs: Vital Signs Temp Pulse Resp BP Pulse Ox O2 Del Method O2 Flow Rate 97.9 F 102 H 18 116/69 94 Mechanical Ventilator 15 05/28/22 04:00 05/28/22 07:48 05/28/22 07:48 05/28/22 07:00 05/28/22 07:00 05/28/22 07:00 05/20/22 09:00 FiO2 35 05/28/22 07:00 Oxygen Flow Rate (L/min) 15 Oxygen Delivery Method Mechanical Ventilator Weight: 99.3 kg Body Mass Index (BMI) 36.4 Intake & Output: Intake and Output for Last 24 Hours 05/26/22 05/27/22 05/28/22 23:59 23:59 23:59 Intake Total 3472.09 / 3602.09 3529.6833 / 3539.6833 500.04 / 500.04 Output Total 1850 / 1850 0 / 0 450 / 450 Balance 1622.09 / 1752.09 1449.6833 / 1459.6833 50.04 / 50.04 Lab / Micro Data Result Diagrams: 05/28/22 03:45 05/28/22 03:45 Labs: Laboratory Results - last 24 hr 05/27/22 04:00: Free T4 1.72 H 05/27/22 12:38: POC Glucose 179 H 05/27/22 17:10: POC Glucose 235 H 05/28/22 00:50: POC Glucose 235 H 05/28/22 03:45: WBC 8.7, RBC 2.89 L, Hgb 8.7 L, Hct 29.6 L, MCV 102.4 H, MCH 30.1, MCHC 29.4 L, RDW Std Deviation 69.0 H, RDW Coeff of Magen 18.1 H, Plt Count 106 L, MPV 11.2, Immature Gran % (Auto) 0.300, Neut % (Auto) 73.1 H, Lymph % (Auto) 9.7 L, [place] % (Auto) 7.6, Eos % (Auto) 9.0 H, Baso % (Auto) 0.3, Absolute Neuts (auto) 6.4, Absolute Lymphs (auto) 0.85, Nucleated RBC % 0, Differential Comment SCANNED, Hypochromasia RARE, Anisocytosis 1+, Macrocytosis 1+ 05/28/22 03:45: Sodium 146 H, Potassium 3.4 L, Chloride 116 H, Carbon Dioxide 28.0, Anion Gap 2 L, BUN 58 H, Creatinine 1.11 H, Estim Creat Clear Calc 43.05, Est GFR (MDRD) Af Amer 63, Est GFR (MDRD) Non-Af 52 L, BUN/Creatinine Ratio 52.3 H, Glucose 218 H, Calcium 7.8 L, Total Bilirubin 0.30, AST 14 L, ALT 9 L, Alkaline Phosphatase 148 H, Total Protein 5.1 L, Albumin 1.4 L, Globulin 3.7, Albumin/Globulin Ratio 0.4 L, TSH 9.36 H 05/28/22 03:45: Phosphorus 2.5 Micro: Microbiology 05/24/22 06:35 Wound - Arm Left Gram Stain - Final 05/24/22 06:35 Wound - Arm Left Wound Culture - Final Pseudomonas aeruginosa Staphylococcus haemolyticus Staphylococcus epidermidis 05/24/22 06:35 Wound - Arm Left Anaerobic Culture - Final No anaerobic bacteria isolated. 05/19/22 14:30 Blood Culture (Wb) - Port Blood Culture - Final No growth in 5 days. 05/19/22 13:45 Blood Culture (Wb) - Port Blood Culture - Final No growth in 5 days. 05/20/22 17:40 Sputum, Induced/Lukens Gram Stain - Final 05/20/22 17:40 Sputum, Induced/Lukens Respiratory Culture - Final Escherichia coli 05/19/22 22:20 Transtracheal Aspirate Gram Stain - Final 05/19/22 22:20 Transtracheal Aspirate Respiratory Culture - Final Escherichia coli 05/20/22 04:25 Urine Catheter - Knight Urine Culture - Final Culture exhibits no growth. 05/20/22 04:25 Urine Catheter - Knight Legionella Antigen - Final 05/20/22 04:25 Urine Catheter - Knight Streptococcus pneumoniae Antigen (M - Final 05/19/22 22:20 Mucosa - Nasopharyngeal Respiratory Panel (PCR) - Final ABG Data ABG results: ABG 05/27/22 05/28/22 08:39 07:06 Specimen Type ART ASHANTI Sample Site R Radial R Radial pH 7.32 L 7.42 Bicarbonate Actual 26.5 H 24.2 Total CO2 28 25 Base Excess 0 0 O2 Saturation 97 73 L O2 % 40 35 ABG pCO2 51.3 H 36.9 ABG pO2 95 37 L* Hussain Test N/A O2 Delivery Device Adult Vent Vent Mode CPAP/PS BIVENT POC PEEP 8 8 POC Pressure Suppt 8 5 Crit Call To/Read Back Yes Rhythm Strip Rhythm Strip: A-fib Rate: 109 Ectopy: None Physical Exam Narrative General: Intubated, moved with exam, less anxious today HEENT: Atraumatic, normocephalic Eyes: Eyes resting comfortably Neck: Supple Respiratory: Mechanically ventilated Cardiovascular: Not tachycardic at the time of exam GI: nondistended Extremities: Anasarca Musculoskeletal: Left AKA noted Neuro: Intermittently wakes up, moves around some Skin: Has some purpura on upper extremities Psych: Calm today Assessment & Plan Assessment/Plan (1) Septic shock: PLAN: Plan #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 May be able to tolerate Lasix tomorrow -05/25: To be given Lasix trial. Failed SBT today after 3 minutes due to low tidal volumes -05/26: Lightening sedation to help patient participate in spontaneous breathing trial, continue diuresis as tolerated -05/27: On IV Lasix. Daily weights -05/28: Still unable to extubate. 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 She will likely need trach this week #Septic shock secondary to ESBL E. coli pneumonia -unclear etiology -cultures pending, sputum culture with 1+ gram-negative rods -cont broad spectrum abx pending final culture results -05/22: Tracheal aspirate growing ESBL, antibiotics changed to Merrem, wean levo as tolerated. Vancomycin discontinued -05/23: Continued on Merrem, still on levo. ID following, ESBL in tracheal aspirate, blood cultures from 05/19 no growth to date -05/24: Infectious disease following, remains on meropenem for ESBL. Levo being weaned as tolerated -05/25: Down to 1 mcg of levo with good MAP. On Merrem, blood cultures no growth. Arm wound culture pending 05/26:Continues to be on Merrem, levo was on hold this a.m. -05/27: Off norepinephrine, heart rate improving as his blood pressure. On SBT at time of exam. On Merrem and vancomycin. -05/28: Afebrile, blood pressure significantly improved, ID following, on Merrem and vancomycin #Infection of left arm -05/26: Cultures growing Pseudomonas, staph species, gram-positive cocci possibly enteric coccus. Infectious disease following. Patient on Merrem at this time which does cover the Pseudomonas, further speciation further organisms pending -05/27: Wound culture growing Pseudomonas, staph hemolyticus, Staph epidermidis. Pseudomonas sensitive to Merrem, staph epi and staph hemolyticus sensitive to vancomycin. Patient remains on Merrem and vancomycin, ID managing #Chronic anemia -Chronically anemic with hemoglobin variable but today 6.8, based on trend do not think she is actively bleeding. Will receive packed red blood cells today. Transfusion goal 7 -05/27: Hemoglobin 8.5 today -05/28: Stable #Hypernatremia and hyperchloremia -Free water flushes and tube feeds started -05/23: Somewhat improved today -05/24: Continue water with tube feeds as able however had high residuals so these have been decreased -05/25: Tube feeds being increased as tolerated -05/28: Improving #MIKE on CKD -Likely prerenal secondary to septic shock -I's and O's -05/22: Slightly improved today. Tube feeds being initiated with free water -05/23: Creatinine went from 2.27 down to 1.77, improving -05/24: Improving #Encephalopathy -likely 2/2 CO2 retention -Presently intubated #Type 2 diabetes mellitus -Continue insulin sliding scale -05/27: If glucose remains elevated we will need to add long-acting insulin but want to be careful to avoid hypoglycemia #Atrial fibrillation -Eliquis held, Cardizem and metoprolol held due to septic shock -05/22: Amiodarone drip -05/26: Amio 200 mg twice daily down NG tube -05/27: Heart rate improving, platelets did improve somewhat today. If hemoglobin remains stable and platelets continue to improve we will be able to resume Eliquis #Hypothyroidism -Synthroid -TSH elevated, will check free T4, difficult to tell if this is due to an adequate dose of levothyroxine or due to her critical illness #Coronary artery disease status post stenting -on asa, statin not on home med list, ultimately will benefit if no contraindication #Dry gangrene of left leg status post recent AKA -Continue to monitor #DVT ppx: SCDs, heparin subcu Coco Romero MD Time spent in the patient's overall evaluation,decision-making process, review of diagnostic data, adjustment of management, discussion with other providers, nursing nursing and ancillary staff involved in patient's care documentation, 30 minutes Charges/Coding Visit Charges Inpatient E&M: 96422 Subs Hosp L2
[2022-05-28] MEDS: Menthol/Lanolin/Calamine/Znox 113 GM Tube 1 APPLIC TOPICAL ×2 (10:28→21:11)
[2022-05-28] MEDS: Nystatin Powder 15gm Bottle 1 APPLIC TOPICAL ×3 (11:28→21:12)
[2022-05-28 11:55] LABS: Bedside Glucose 163 mg/dL (74-106)
--- NOTE | 2022-05-28 13:02 | NURSING ---
Attempted oral care on patient- patient became aggressive with this RN, verbally abusive stating Go f yourself and f you. This RN told patient not to be vulgar with staff and cooperate for her own health. Patient continued to yell at this RN, RN left room. Family was at bedside.
[2022-05-28 13:31] LABS: Vancomycin, Trough Level 25.3 ug/mL (5.0-15.0)
--- NOTE | 2022-05-28 13:48 | PCM.RX.CS ---
Consult Pharmacy has been consulted to manage selected antiobiotic: Vancomycin Type of Consult: Follow-up Suspected Infection: Skin/Soft tissue Labs: Sodium 146 mmol/L (136-145) H 05/28/22 03:45 Potassium 3.4 mmol/L (3.5-5.1) L 05/28/22 03:45 Chloride 116 mmol/L (98-107) H 05/28/22 03:45 Carbon Dioxide 28.0 mmol/L (21.0-32.0) 05/28/22 03:45 Anion Gap 2 (5-15) L 05/28/22 03:45 BUN 58 mg/dL (7-18) H 05/28/22 03:45 Creatinine 1.11 mg/dL (0.55-1.02) H 05/28/22 03:45 Est GFR (MDRD) Af Amer 63 mL/min (>60) 05/28/22 03:45 Est GFR (MDRD) Non-Af 52 mL/min (>60) L 05/28/22 03:45 BUN/Creatinine Ratio 52.3 RATIO (10-20) H 05/28/22 03:45 Glucose 218 mg/dL (74-106) H 05/28/22 03:45 Vancomycin Trough 25.3 ug/mL (5.0-15.0) H 05/28/22 12:55 Random Vancomycin 20.2 ug/mL (0.0-15.0) H 05/22/22 03:10 Microbiology: Microbiology 05/24/22 06:35 Wound - Arm Left Gram Stain - Final 05/24/22 06:35 Wound - Arm Left Wound Culture - Final Pseudomonas aeruginosa Staphylococcus haemolyticus Staphylococcus epidermidis 05/24/22 06:35 Wound - Arm Left Anaerobic Culture - Final No anaerobic bacteria isolated. 05/19/22 14:30 Blood Culture (Wb) - Port Blood Culture - Final No growth in 5 days. 05/19/22 13:45 Blood Culture (Wb) - Port Blood Culture - Final No growth in 5 days. 05/20/22 17:40 Sputum, Induced/Lukens Gram Stain - Final 05/20/22 17:40 Sputum, Induced/Lukens Respiratory Culture - Final Escherichia coli 05/19/22 22:20 Transtracheal Aspirate Gram Stain - Final 05/19/22 22:20 Transtracheal Aspirate Respiratory Culture - Final Escherichia coli 05/20/22 04:25 Urine Catheter - Knight Urine Culture - Final Culture exhibits no growth. 05/20/22 04:25 Urine Catheter - Knight Legionella Antigen - Final 05/20/22 04:25 Urine Catheter - Knight Streptococcus pneumoniae Antigen (M - Final 05/19/22 22:20 Mucosa - Nasopharyngeal Respiratory Panel (PCR) - Final Goal Trough: 15-20 mcg/mL Pharmacy Plan for Drug Dosing: VANCOMYCIN LEVEL RECEIVED Current Vancomycin Dose: 500MG Q24 Number of Doses Received: 2 Vancomycin Level: 25.3 MG/DL Hours Since Last Dose: 22 Renal Function: SCR 1.11 MG/DL, CRCL 58.2 ML/MIN USING ADJ BW Renal Function Trend: IMPROVED Lab/Micro: STAPH IN WOUND CX Vancomycin Plan/Comments: 22 HOUR TROUGH MAY NOT BE ACCURATE THE PREVIOUS DOSE WAS GIVEN LATE AND THE TROUGH WAS DRAWN A LITTLE EARLY. PATIENT ALSO HAD A 2000MG LOADING DOSE WHICH COULD INCREASE THE TROUGH. WILL RE-TIME THE NEXT TROUGH PRIOR TO TOMORROW'S DOSE AND RE-ASSESS BASED ON THAT LEVEL. Pending Level: 05/29/22 @ 2058 Pharmacy Service will continue to monitor and adjust dosing as required.
--- NOTE | 2022-05-28 14:14 | PCM.PN.INT ---
Assessment & Plan Assessment/Plan (1) Acute on chronic respiratory failure with hypoxia and hypercapnia: PLAN: Patient is gradually waking up, but is still not able to maintain her own airway cough and clear her secretions. She is slowly improving every day however. - Continue SBT daily to twice daily - Encourage patient to cough - If she is not able to be extubated by early to mid next week, she should have a tracheostomy placed - The family has been minimally interested, the POA has not been returning the staff's calls, and its been difficult to get family to see the patient and assist with medical decision making. May 28, 2022: The patient had significant improvement overnight, with better strength, able to cough, and passed her weaning trial. - Extubated today without difficulty. Advance care planning discussion: - I met with the 3 children, Evelio, (POA), TM, and daughter. They stated that the patient had previously expressed wishes not to be on life support for more than a couple months but that she is a fighter, and wants to live. That if she required reintubation she would want to do so, including tracheostomy, central lines/IV access, cardiopulmonary resuscitation and dialysis for a limited time for reversible problems. However if her condition would deteriorate and become unlikely to recover, they stated that she would not want to continue to live on machines. Therefore, she is full code for reversible conditions. (2) Atrial fibrillation with rapid ventricular response: PLAN: Continue current management, heart rate controlled today. (3) On mechanically assisted ventilation: PLAN: Extubated uneventfully (4) Toxic metabolic encephalopathy: PLAN: Slowly improving, following commands today. (5) Thrombocytopenia: PLAN: May 27-2022: Heparin stopped today due to low platelets - HIT assay, follow-up next week - Vitamin K 5 mg IV x1 for INR of 17, and 5 mg NG tube daily x2 beginning May 28 (6) Acute encephalopathy: PLAN: May 27, 2022: Slowly improving, likely due to delayed metabolism of sedation medication May 28, 2022: Continues to improve, following commands. Cussing at staff. Family states that she is stubborn. (7) Pneumonia involving right lung: PLAN: Patient is afebrile white count normalized. Continue 8 to 10 days of treatment - Follow chest x-ray daily while on ventilator May 28, 2022: ESBL E. coli, continuing meropenem - Check cultures tomorrow, including new fluid draining from left AKA stump (8) COPD exacerbation: PLAN: May 28, 2022: Routine management, stable (9) Type 2 diabetes mellitus with foot ulcer: PLAN: Management by primary PLAN: Plan Critical care time: 80 minutes, including discussion with family, bedside care, pre and postextubation management, revision of medications, discussion with primary. Subjective Subjective Remains lethargic but opens eyes able to speak 5 word sentences due to lethargy, semiappropriate, falls back asleep. Cooperates, has a good cough today. Overnight: Patient continued to gain strength and improve her cough which is less productive today. Extubated without difficulty today to 4 L of nasal oxygen 97% saturation. She remains on meropenem for Pseudomonas left arm wound infection and ESBL E. coli pneumonia, her left leg stump is oozing clear brownish fluid that was cultured today. Chest x-ray shows bilateral interstitial infiltrates consistent with congestion, small bilateral effusions. Successful diuresis after Lasix drip at 10 to 15 mg/h, with resolution of respiratory failure and enabling extubation, but at the expense of elevated creatinine. Albumin remains low at 1.3 Objective Data Objective Data Vital Signs: Vital Signs Temp Pulse Resp BP Pulse Ox O2 Del Method O2 Flow Rate 98.0 F 120 H 13 130/101 H 90 Nasal Cannula 4 05/28/22 08:00 05/28/22 13:00 05/28/22 13:00 05/28/22 13:00 05/28/22 13:00 05/28/22 13:00 05/28/22 13:00 FiO2 40 05/28/22 08:00 Oxygen Flow Rate (L/min) 4 Oxygen Delivery Method Nasal Cannula Weight: 218 lb 14.704 oz Body Mass Index (BMI) 36.4 Extubated 05/28/22 Intake & Output: Intake and Output for Last 24 Hours 05/26/22 05/27/22 05/28/22 23:59 23:59 23:59 Intake Total 3472.09 / 3602.09 3529.6833 / 3539.6833 678.49 / 678.49 Output Total 1850 / 1850 2080 / 2080 750 / 750 Balance 1622.09 / 1752.09 1449.6833 / 1459.6833 -71.51 / -71.51 Lab / Micro Data Attestation: I reviewed the patient's lab results. Result Diagrams: 05/28/22 03:45 05/28/22 03:45 Labs: Laboratory Results - last 24 hr 05/27/22 12:38: POC Glucose 179 H 05/27/22 17:10: POC Glucose 235 H 05/28/22 00:50: POC Glucose 235 H 05/28/22 03:45: WBC 8.7, RBC 2.89 L, Hgb 8.7 L, Hct 29.6 L, MCV 102.4 H, MCH 30.1, MCHC 29.4 L, RDW Std Deviation 69.0 H, RDW Coeff of Magen 18.1 H, Plt Count 106 L, MPV 11.2, Immature Gran % (Auto) 0.300, Neut % (Auto) 73.1 H, Lymph % (Auto) 9.7 L, [place] % (Auto) 7.6, Eos % (Auto) 9.0 H, Baso % (Auto) 0.3, Absolute Neuts (auto) 6.4, Absolute Lymphs (auto) 0.85, Nucleated RBC % 0, Differential Comment SCANNED, Hypochromasia RARE, Anisocytosis 1+, Macrocytosis 1+ 05/28/22 03:45: Sodium 146 H, Potassium 3.4 L, Chloride 116 H, Carbon Dioxide 28.0, Anion Gap 2 L, BUN 58 H, Creatinine 1.11 H, Estim Creat Clear Calc 43.05, Est GFR (MDRD) Af Amer 63, Est GFR (MDRD) Non-Af 52 L, BUN/Creatinine Ratio 52.3 H, Glucose 218 H, Calcium 7.8 L, Total Bilirubin 0.30, AST 14 L, ALT 9 L, Alkaline Phosphatase 148 H, Total Protein 5.1 L, Albumin 1.4 L, Globulin 3.7, Albumin/Globulin Ratio 0.4 L, TSH 9.36 H 05/28/22 03:45: Phosphorus 2.5 05/28/22 11:23: POC Glucose 163 H 05/28/22 12:55: Vancomycin Trough 25.3 H Micro: Microbiology 05/24/22 06:35 Wound - Arm Left Gram Stain - Final 05/24/22 06:35 Wound - Arm Left Wound Culture - Final Pseudomonas aeruginosa Staphylococcus haemolyticus Staphylococcus epidermidis 05/24/22 06:35 Wound - Arm Left Anaerobic Culture - Final No anaerobic bacteria isolated. 05/19/22 14:30 Blood Culture (Wb) - Port Blood Culture - Final No growth in 5 days. 05/19/22 13:45 Blood Culture (Wb) - Port Blood Culture - Final No growth in 5 days. 05/20/22 17:40 Sputum, Induced/Lukens Gram Stain - Final 05/20/22 17:40 Sputum, Induced/Lukens Respiratory Culture - Final Escherichia coli 05/19/22 22:20 Transtracheal Aspirate Gram Stain - Final 05/19/22 22:20 Transtracheal Aspirate Respiratory Culture - Final Escherichia coli 05/20/22 04:25 Urine Catheter - Knight Urine Culture - Final Culture exhibits no growth. 05/20/22 04:25 Urine Catheter - Knight Legionella Antigen - Final 05/20/22 04:25 Urine Catheter - Knight Streptococcus pneumoniae Antigen (M - Final 05/19/22 22:20 Mucosa - Nasopharyngeal Respiratory Panel (PCR) - Final ABG Data ABG results: ABG 05/28/22 07:06 Specimen Type ASHANTI Sample Site R Radial pH 7.42 Bicarbonate Actual 24.2 Total CO2 25 Base Excess 0 O2 Saturation 73 L O2 % 35 ABG pCO2 36.9 ABG pO2 37 L* Hussain Test N/A O2 Delivery Device Adult Vent Vent Mode BIVENT POC PEEP 8 POC Pressure Suppt 5 Crit Call To/Read Back Yes Interpretation: ABG shows adequate ventilation and oxygenation on spontaneous breathing trial with pressure support of 5 and PEEP of 8. Approved for extubation. Radiography Diagnostic Testing: Radiology Impression Chest X-Ray 05/28/22 07:35 IMPRESSION: Stable exam Electronically Signed: Jose F Jack MD at 9:09 EDT , Rhythm Strip Rhythm Strip: A-fib Rate: 109 Ectopy: None Physical Exam Narrative Chronically ill-appearing woman with alopecia, weakness and lethargy after extubation but opens eyes, follows commands, coughs, and moves on request. HEENT: Dry mucous membranes Neck is supple, bruising near the right IJ site with no purulence. Chest is diminished but clear bilaterally with no wheezes rales or rhonchi. Cough is weak but adequate. Minimal sputum production prior to and post extubation today. Heart normal S1-S2 with no murmurs Abdomen is soft nontender Extremities have diffuse 4+ edema, multiple scratches, abrasions, ecchymoses, the left arm Pseudomonas positive wound is packed. The right heel is wrapped and the lesion is stable per nursing. The left AKA wound stump was oozing clear brownish fluid, left open to air with stitches in place, no erythema or discrete purulence. Culture today. Neuro is diffusely weak but grossly nonfocal, moves all 4. Charges/Coding Addendum Addendum: Critical care time: 35183, 66540 today. Multi Select Codes Hospitalists' Procedures Procedures: 15421 Critial Care 1st Hr and 72479 Critial Care Addl 30 Min
--- NOTE | 2022-05-28 15:56 | NURSING ---
PICC line nurse at bedside
--- NOTE | 2022-05-28 17:00 | NURSING ---
At patient bedside to place NG. Patient refused. This RN explained to the patient why a NG is needed (for nutrition and medications), however patient continued to refuse. Patient then said later. This RN then attempted oral care, patient again became aggressive and attempted to hit this RNs hand away. It was explained to patient why oral care needs to be done, for oral health- and that she has very dry peeling lips. Patient eventually agreed to oral care.
[2022-05-28] MEDS: Vancomycin IV 500 MG/100 ML BAG 100 MG IV (17:10)
[2022-05-28 18:21] LABS: Bedside Glucose 172 mg/dL (74-106)
[2022-05-28] MEDS: Dext 5%-0.45% NS 1,000 ML 75 ML IV (18:49)
[2022-05-29] VITALS (31 sets, daily range): BP systolic 105–148; BP diastolic 56–91; PULSE 100–130; RESP 10–25; TEMP 36.1–36.3; O2SAT 93–98; BMI 36.1
[2022-05-29] MEDS: Insulin Lispro 100 UNIT/ML INSULN.PEN SC ×4 (00:46→17:00)
[2022-05-29 01:25] LABS: Bedside Glucose 183 mg/dL (74-106)
[2022-05-29] MEDS: Ipratropium/Albuterol Sulfate 3 ML AMPUL.NEB INHALATION ×6 (03:37→23:24)
[2022-05-29 04:49] LABS: Absolute Lymphocyte Count 0.76 X10^3/uL (0.83-4.51); Absolute Neutrophil Count 7.4 X10^3/uL (2.0-7.7); Basophil# 0.04 X10^3/uL; Basophil% 0.4 % (0-1); Eosinophil# 0.74 X10^3/uL; Eosinophils% 7.8 % (0-5); Hematocrit 31.8 % (37-47); Hemoglobin 9.2 g/dL (12.0-15.0); Lymphocyte # 0.76 X10^3/ul (0.83-4.51); Lymphocyte % 8.1 % (19-41); Mean Corp Hgb Conc 28.9 g/dL (32-36); Mean Corpuscular Hgb 29.6 pg (27.0-32.0); Mean Corpuscular Volume 102.3 fL (81-99); Mean Platelet Vol. 11.3 fl (6.2-12.0); Monocyte# 0.47 X10^3/uL; NRBC Flagged by Analyzer 0 % (0-5); Neutrophil # 7.37 X10^3/uL (2.7-7.7); Neutrophil % 78.2 % (47-70); POSITIVE MORPHOLOGY YES; Platelet Count 137 K/mm3 (150-450); RBC Distribution Width CV 17.7 % (11.6-14.6); RBC Distribution Width SD 66.2 fl (35.1-43.9); Red Blood Count 3.11 M/mm3 (4.2-5.4); White Blood Count 9.4 K/mm3 (4.4-11.0)
[2022-05-29 04:56] LABS: Differential Indicated SCAN CRITERIA MET
[2022-05-29] MEDS: Nystatin Powder 15gm Bottle 1 APPLIC TOPICAL ×3 (05:04→20:52)
[2022-05-29 05:05] LABS: Anisocytosis 1+; Macrocytosis RARE; Platelet Estimate SLT DEC (ADEQ)
[2022-05-29] MEDS: Heparin Injection (Vial) 5,000 UNIT/ML VIAL 5000 UNIT SC ×3 (05:06→20:52)
[2022-05-29 05:10] LABS: Anion Gap 5 (5-15); BUN 52 mg/dL (7-18); BUN/Creat Ratio 54.8 RATIO (10-20); Calcium,Total 8.5 mg/dL (8.5-10.1); Chloride 115 mmol/L (98-107); Creatinine, Serum 0.95 mg/dL (0.55-1.02); EST Glomerular Filtration Rate 63 mL/min (>60); Est Glom Filt Rate - Afr Amer 76 mL/min (>60); Glucose 194 mg/dL (74-106); Potassium 3.5 mmol/L (3.5-5.1); Sodium Level 147 mmol/L (136-145)
[2022-05-29 05:36] LABS: Bedside Glucose 168 mg/dL (74-106)
--- NOTE | 2022-05-29 07:38 | PN.CC_ITS ---
Assessment & Plan Assessment/Plan (1) Septic shock: PLAN: Plan RECOMMENDATIONS: 1. Wean supplemental oxygen as tolerated to maintain saturations at or above 90%. 2. Speech therapy reevaluation prior to advancing diet. 3. Antimicrobials per ID recommendations. 4. Diuresis as tolerated by hemodynamics and renal function. 5. Encourage incentive spirometer use while in bed. IMPRESSIONS: 1. Septic shock The patient presented with sepsis secondary to ESBL pneumonia with acute sepsis related organ dysfunction as evidenced by decompensated respiratory failure requiring intubation and invasive mechanical ventilatory support along with acute kidney injury. The patient was able to be successfully extubated and is doing well from a respiratory perspective. Plan to continue antimicrobials per ID recommendations. The patient remains hemodynamically stable. 2. Encephalopathy Resolved. Most likely metabolic in etiology in the setting of #1. 3. Acute on chronic combined respiratory failure The patient did grow ESBL E. coli in her sputum indicating pneumonia on presen tation as an etiology of her respiratory failure. Plan to continue scheduled bronchodilators over concerns for underlying obstructive lung disease. Continue diuresis as tolerated by hemodynamics and renal function. 4. Dry gangrene of the left leg status post recent AKA/recurrent hos pitalizations/diabetes mellitus/anemia/hyperlipidemia/CAD Complicates care, management, recovery and prognosis. Continue diuresis as noted above. Continue home medications as tolerated. This note was generated with [employer] dictation software. It may contain incorrect words, spelling, and punctuation that were not noted in checking the note before signing. Subjective Subjective The patient was seen and examined at the bedside this morning. Events from the last 24 hours have been reviewed. The patient is currently afebrile, hemodynamically stable and maintaining appropriate oxygen saturations on 4 L/min via nasal cannula. The patient was extubated yesterday without complication. She is currently documented to be overall net positive for the hospitalization from a volume perspective. Hemoglobin is stable at 9.2 g/dL. Platelet count has increased to 137,000. The patient remains on antimicrobials and was initiated over the weekend on a Lasix drip and dextrose containing supplemental IV fluids. The patient reports some persistent nausea this morning. Objective Data Objective Data The patient's most recent lab work, culture data and imaging studies have all been personally reviewed. Surface echocardiogram from May 08 demonstrated normal LV size and function with an ejection fraction of 55%. Mild to moderate global RV systolic dysfunction was noted along with a pulmonary artery systolic pressure of 50 mmHg. Sputum culture dated May 21 was positive for ESBL E. coli. Vital Signs: Vital Signs Temp Pulse Resp BP Pulse Ox O2 Del Method O2 Flow Rate 97.1 F L 120 H 20 H 123/68 H 95 Nasal Cannula 4 05/29/22 04:00 05/29/22 07:29 05/29/22 07:29 05/29/22 07:00 05/29/22 07:00 05/29/22 07:29 05/29/22 07:29 FiO2 40 05/28/22 08:00 Oxygen Flow Rate (L/min) 4 Oxygen Delivery Method Nasal Cannula Weight: 216 lb 11.43 oz Body Mass Index (BMI) 36.1 Intake & Output: Intake and Output for Last 24 Hours 05/27/22 05/28/22 05/29/22 23:59 23:59 23:59 Intake Total 3529.6833 / 3539.6833 1216.99 / 1216.99 1045 / 1045 Output Total 2080 / 2080 1900 / 2050 550 / 550 Balance 1449.6833 / 1459.6833 -683.01 / -833.01 495 / 495 Lab / Micro Data Attestation: I reviewed the patient's lab results. Result Diagrams: 05/29/22 04:00 05/29/22 04:00 Labs: Laboratory Results - last 24 hr 05/28/22 11:23: POC Glucose 163 H 05/28/22 12:55: Vancomycin Trough 25.3 H 05/28/22 17:18: POC Glucose 172 H 05/29/22 00:44: POC Glucose 183 H 05/29/22 04:00: WBC 9.4, RBC 3.11 L, Hgb 9.2 L, Hct 31.8 L, MCV 102.3 H, MCH 29.6, MCHC 28.9 L, RDW Std Deviation 66.2 H, RDW Coeff of Magen 17.7 H, Plt Count 137 L, MPV 11.3, Immature Gran % (Auto) 0.500, Neut % (Auto) 78.2 H, Lymph % (Auto) 8.1 L, [place] % (Auto) 5.0, Eos % (Auto) 7.8 H, Baso % (Auto) 0.4, Absolute Neuts (auto) 7.4, Absolute Lymphs (auto) 0.76 L, Nucleated RBC % 0, Platelet Estimate SLT DEC, Anisocytosis 1+, Macrocytosis RARE 05/29/22 04:00: Sodium 147 H, Potassium 3.5, Chloride 115 H, Carbon Dioxide 27.0, Anion Gap 5, BUN 52 H, Creatinine 0.95, Estim Creat Clear Calc 50.30, Est GFR (MDRD) Af Amer 76, Est GFR (MDRD) Non-Af 63, BUN/Creatinine Ratio 54.8 H, Glucose 194 H, Calcium 8.5 05/29/22 05:07: POC Glucose 168 H Micro: Microbiology 05/24/22 06:35 Wound - Arm Left Gram Stain - Final 05/24/22 06:35 Wound - Arm Left Wound Culture - Final Pseudomonas aeruginosa Staphylococcus haemolyticus Staphylococcus epidermidis 05/24/22 06:35 Wound - Arm Left Anaerobic Culture - Final No anaerobic bacteria isolated. 05/19/22 14:30 Blood Culture (Wb) - Port Blood Culture - Final No growth in 5 days. 05/19/22 13:45 Blood Culture (Wb) - Port Blood Culture - Final No growth in 5 days. 05/20/22 17:40 Sputum, Induced/Lukens Gram Stain - Final 05/20/22 17:40 Sputum, Induced/Lukens Respiratory Culture - Final Escherichia coli 05/19/22 22:20 Transtracheal Aspirate Gram Stain - Final 05/19/22 22:20 Transtracheal Aspirate Respiratory Culture - Final Escherichia coli 05/20/22 04:25 Urine Catheter - Knight Urine Culture - Final Culture exhibits no growth. 05/20/22 04:25 Urine Catheter - Knight Legionella Antigen - Final 05/20/22 04:25 Urine Catheter - Knight Streptococcus pneumoniae Antigen (M - Final 05/19/22 22:20 Mucosa - Nasopharyngeal Respiratory Panel (PCR) - Final Radiography Diagnostic Testing: Radiology Impression Chest X-Ray 05/28/22 07:35 IMPRESSION: Stable exam Electronically Signed: Jose F Jack MD at 9:09 EDT , Rhythm Strip Rhythm Strip: A-fib Rate: 109 Ectopy: None Physical Exam Const alert and no apparent distress Constitutional Narrative: Chronically ill in appearance. General Appearance: cooperative HEENT normocephalic and head/scalp atraumatic Eyes PERRL and EOMs intact bilaterally Neck supple General: trachea midline and CVC in place Chest inspection of chest normal Resp normal respiratory effort Auscultation: diminished lung sounds; Negative for rales, rhonchi or wheezes Cardio S1 normal heart sound and S2 normal heart sound Rhythm: abnormal rhythm GI normal to inspection, nondistended, normoactive bowel sounds Extremity Extremity Narrative: Left AKA. Stump appears intact without any signs of infection. General Extremity: edema right Skin General Skin Exam: venous stasis and dermatitis Neuro CN's II-XII intact bilaterally and no focal motor deficits Psych cooperative and affect normal Charges/Coding Visit Charges Inpatient E&M: 97540 Subs Hosp L3
--- NOTE | 2022-05-29 09:40 | CASEMGMT ---
Addendum entered by Ebonie Grewal 05/29/22 14:54: GREG attempted to speak with pt once again. Pt sleeping soundly and refusing to wake. SW was notified by nurse that just had meds and wound care and likely not wasily waken at this time. GREG called pt son, Chava, once again to attempt confirming discharge plan. No answer. Left message requesting a call back. Addendum entered by Ebonie Grewal 05/29/22 12:00: GREG attempted to meet with pt once again. Pt receiving wound care from nurse at this time. Addendum entered by Ebonie Grewal 05/29/22 10:01: [facility] responded to message regarding precert. Pt does not need precert to return, but [facility] would like therapy notes sent to them once there are some after pt was extubated as they would like to skill pt so pt can get additional therapy. JAYY Georges Original Note: Social Work GREG attempted to meet with pt this AM. Pt sleeping. GREG called pt son, Chava, who is also HCPOA. GERG explained wanting to begin discharge plan and left VM with contact number requesting Chava call back. GREG reviewed [facility] and [facility] responded to clinical updates that were sent last week. [facility] informed pt can be accepted back. GREG inquired as it if pt will need precert. Will await response. JAYY Georges
[2022-05-29] MEDS: Menthol/Lanolin/Calamine/Znox 113 GM Tube 1 APPLIC TOPICAL ×2 (10:41→20:52)
[2022-05-29] MEDS: Ondansetron 4 MG/2 ML Vial IV (10:41)
[2022-05-29] MEDS: Furosemide 500 MG in Empty Viaflex 50 mL 1 EACH CONT INF (10:43)
[2022-05-29] MEDS: Amiodarone 360 MG in Dextrose 5% Viaflo Bag 192.8 ML 16.7 MG CONT INF (12:30)
[2022-05-29 12:51] LABS: Bedside Glucose 158 mg/dL (74-106)
--- NOTE | 2022-05-29 13:25 | WOUNDNOTE ---
wound photo: left AC
--- NOTE | 2022-05-29 13:26 | WOUNDNOTE ---
wound photo: left AKA
--- NOTE | 2022-05-29 14:19 | WOUNDNOTE ---
wound photo: right heel
[2022-05-29 14:31] LABS: Vancomycin, Trough Level 25.6 ug/mL (5.0-15.0)
--- NOTE | 2022-05-29 14:41 | PCM.RX.CS ---
Consult Pharmacy has been consulted to manage selected antiobiotic: Vancomycin Type of Consult: Follow-up Prior Doses of Antibiotics Received/Current Regimen: 05/26/22 @ 1433 05/27/22 @ 1513 05/28/22 @ 1711 Labs: Sodium 147 mmol/L (136-145) H 05/29/22 04:00 Potassium 3.5 mmol/L (3.5-5.1) 05/29/22 04:00 Chloride 115 mmol/L (98-107) H 05/29/22 04:00 Carbon Dioxide 27.0 mmol/L (21.0-32.0) 05/29/22 04:00 Anion Gap 5 (5-15) 05/29/22 04:00 BUN 52 mg/dL (7-18) H 05/29/22 04:00 Creatinine 0.95 mg/dL (0.55-1.02) 05/29/22 04:00 Est GFR (MDRD) Af Amer 76 mL/min (>60) 05/29/22 04:00 Est GFR (MDRD) Non-Af 63 mL/min (>60) 05/29/22 04:00 BUN/Creatinine Ratio 54.8 RATIO (10-20) H 05/29/22 04:00 Glucose 194 mg/dL (74-106) H 05/29/22 04:00 Vancomycin Trough 25.6 ug/mL (5.0-15.0) H 05/29/22 14:00 Random Vancomycin 20.2 ug/mL (0.0-15.0) H 05/22/22 03:10 Microbiology: Microbiology 05/28/22 11:30 Suture Gram Stain - Final 05/28/22 11:30 Suture Wound Culture - Preliminary GPC Poss Enterococcus sp 05/24/22 06:35 Wound - Arm Left Gram Stain - Final 05/24/22 06:35 Wound - Arm Left Wound Culture - Final Pseudomonas aeruginosa Staphylococcus haemolyticus Staphylococcus epidermidis 05/24/22 06:35 Wound - Arm Left Anaerobic Culture - Final No anaerobic bacteria isolated. 05/19/22 14:30 Blood Culture (Wb) - Port Blood Culture - Final No growth in 5 days. 05/19/22 13:45 Blood Culture (Wb) - Port Blood Culture - Final No growth in 5 days. 05/20/22 17:40 Sputum, Induced/Lukens Gram Stain - Final 05/20/22 17:40 Sputum, Induced/Lukens Respiratory Culture - Final Escherichia coli 05/19/22 22:20 Transtracheal Aspirate Gram Stain - Final 05/19/22 22:20 Transtracheal Aspirate Respiratory Culture - Final Escherichia coli 05/20/22 04:25 Urine Catheter - Knight Urine Culture - Final Culture exhibits no growth. 05/20/22 04:25 Urine Catheter - Knight Legionella Antigen - Final 05/20/22 04:25 Urine Catheter - [facility] Streptococcus pneumoniae Antigen (M - Final 05/19/22 22:20 Mucosa - Nasopharyngeal Respiratory Panel (PCR) - Final Weight used for dosin kg Goal Trough: 15-20 mcg/mL Pharmacy Plan for Drug Dosing: Hold vancomycin due to high trough of 25.6. Draw random level 05/30/22 @1400 Pharmacy Service will continue to monitor and adjust dosing as required. Labs to be done on [date and time ordered]: random vancomycin level 05/30/22 @ 1400
--- NOTE | 2022-05-29 17:11 | PN_ITS ---
Subjective Subjective Patient seen and examined. She was alert but quite lethargic. She is able to answer questions. She appeared confused and IV know where she was. She remains tachycardic. Unable to do comprehensive review of systems. Objective Data Objective Data Vital Signs: Vital Signs Temp Pulse Resp BP Pulse Ox O2 Del Method O2 Flow Rate 97.3 F L 118 H 22 H 122/76 H 95 Nasal Cannula 4 05/29/22 12:00 05/29/22 15:59 05/29/22 15:59 05/29/22 15:00 05/29/22 15:00 05/29/22 15:00 05/29/22 15:00 FiO2 40 05/28/22 08:00 Oxygen Flow Rate (L/min) 4 Oxygen Delivery Method Nasal Cannula Weight: 216 lb 11.43 oz Body Mass Index (BMI) 36.1 Intake & Output: Intake and Output for Last 24 Hours 05/27/22 05/28/22 05/29/22 23:59 23:59 23:59 Intake Total 3529.6833 / 3539.6833 1216.99 / 1216.99 1422.25 / 1422.25 Output Total 2080 / 2080 1900 / 2050 1400 / 1400 Balance 1449.6833 / 1459.6833 -683.01 / -833.01 22.25 / 22.25 Lab / Micro Data Result Diagrams: 05/29/22 04:00 05/29/22 04:00 Labs: Laboratory Results - last 24 hr 05/28/22 17:18: POC Glucose 172 H 05/29/22 00:44: POC Glucose 183 H 05/29/22 04:00: WBC 9.4, RBC 3.11 L, Hgb 9.2 L, Hct 31.8 L, MCV 102.3 H, MCH 29.6, MCHC 28.9 L, RDW Std Deviation 66.2 H, RDW Coeff of Magen 17.7 H, Plt Count 137 L, MPV 11.3, Immature Gran % (Auto) 0.500, Neut % (Auto) 78.2 H, Lymph % (Auto) 8.1 L, Nance % (Auto) 5.0, Eos % (Auto) 7.8 H, Baso % (Auto) 0.4, Absolute Neuts (auto) 7.4, Absolute Lymphs (auto) 0.76 L, Nucleated RBC % 0, Platelet Estimate SLT DEC, Anisocytosis 1+, Macrocytosis RARE 05/29/22 04:00: Sodium 147 H, Potassium 3.5, Chloride 115 H, Carbon Dioxide 27.0, Anion Gap 5, BUN 52 H, Creatinine 0.95, Estim Creat Clear Calc 50.30, Est GFR (MDRD) Af Amer 76, Est GFR (MDRD) Non-Af 63, BUN/Creatinine Ratio 54.8 H, Glucose 194 H, Calcium 8.5 05/29/22 05:07: POC Glucose 168 H 05/29/22 12:17: POC Glucose 158 H 05/29/22 14:00: Vancomycin Trough 25.6 H Micro: Microbiology 05/28/22 11:30 Suture Gram Stain - Final 05/28/22 11:30 Suture Wound Culture - Preliminary GPC Poss Enterococcus sp 05/24/22 06:35 Wound - Arm Left Gram Stain - Final 05/24/22 06:35 Wound - Arm Left Wound Culture - Final Pseudomonas aeruginosa Staphylococcus haemolyticus Staphylococcus epidermidis 05/24/22 06:35 Wound - Arm Left Anaerobic Culture - Final No anaerobic bacteria isolated. 05/19/22 14:30 Blood Culture (Wb) - Port Blood Culture - Final No growth in 5 days. 05/19/22 13:45 Blood Culture (Wb) - Port Blood Culture - Final No growth in 5 days. 05/20/22 17:40 Sputum, Induced/Lukens Gram Stain - Final 05/20/22 17:40 Sputum, Induced/Lukens Respiratory Culture - Final Escherichia coli 05/19/22 22:20 Transtracheal Aspirate Gram Stain - Final 05/19/22 22:20 Transtracheal Aspirate Respiratory Culture - Final Escherichia coli 05/20/22 04:25 Urine Catheter - Knight Urine Culture - Final Culture exhibits no growth. 05/20/22 04:25 Urine Catheter - Knight Legionella Antigen - Final 05/20/22 04:25 Urine Catheter - Knight Streptococcus pneumoniae Antigen (M - Final 05/19/22 22:20 Mucosa - Nasopharyngeal Respiratory Panel (PCR) - Final Rhythm Strip Rhythm Strip: A-fib Rate: 109 Ectopy: None Physical Exam Const alert Constitutional Narrative: Confused, lethargic. HEENT normocephalic, head/scalp atraumatic and moist oral mucous membranes Neck supple and no JVD Lymph Lymphatic: no lymphadenopathy noted Resp Resp Narrative: Mildly diminished breath sounds bibasally. No wheezes or crackles. On 4 L of oxygen by nasal cannula. Cardio S1 normal heart sound, S2 normal heart sound and no murmurs Cardio Narrative: Tachycardic GI normal to inspection, nondistended, normoactive bowel sounds, soft to palpation and non-tender Extremity normal capillary refill and no calf tenderness Extremity Narrative: 2+ edema of both upper and lower extremities Skin General Skin Exam: no breakdown Neuro CN's II-XII intact bilaterally, no focal motor deficits, no sensory deficits noted and deep tendon reflexes 2+ bilaterally Motor Exam: strength 5/5 throughout Psych Psych Narrative: confused Assessment & Plan Assessment/Plan (1) Acute on chronic respiratory failure with hypoxia and hypercapnia: (2) Atrial fibrillation with rapid ventricular response: (3) Severe sepsis: PLAN: Plan #Acute hypoxic respiratory failure due to HFpEF and E coli pneumonia * now extubated. * on 4L of oxygen now. * on lasix as ell as IV meropenem * critical care on board * titrate oxygen to maintain sats >90% * breathing treatment with bronchodilators * #Septic shock due to ESBL E coli * Id on board * on meropenem and vancomycin * now off vasopressors * ESBL cultures in tracheal aspirate * * #LUE wound infection * wound cultures gew Pseudomonas, gram-positive cocci possibly Enterococcus. ID on board. On meropenem. Wound cultures also grew staph epidermidis and staph hemolyticus. * #Hypernatremia: Improving. sodium is 147. : MIKE on CKD: Improving. Creatinine has trended down. #Type 2 diabetes mellitus: On insulin sliding scale. 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 Intact dressing over stump. Rg monitor #Hypothyroidism;on synthroid. TSH was elevated but this would likely not be very accurate in light of her acute illness. Will benefit from follow-up on outpatient basis. #CAD s/p stent: On aspirin and statin #A-fib: Still remains tachycardic. Eliquis held. Cardizem and metoprolol held on account of septic shock. She remains on amiodarone drip. DVT prophylaxis: On heparin Charges/Coding Visit Charges Inpatient E&M: 68161 Subs Hosp L3
[2022-05-29 21:05] LABS: Bedside Glucose 152 mg/dL (74-106)
[2022-05-30] VITALS (22 sets, daily range): BP systolic 91–136; BP diastolic 62–101; PULSE 98–121; RESP 12–24; TEMP 35.7–36.6; O2SAT 88–98; BMI 35.2
[2022-05-30 00:41] LABS: Bedside Glucose 146 mg/dL (74-106)
[2022-05-30 03:26] LABS: Absolute Lymphocyte Count 1.25 X10^3/uL (0.83-4.51); Absolute Neutrophil Count 7.8 X10^3/uL (2.0-7.7); Basophil# 0.04 X10^3/uL; Basophil% 0.4 % (0-1); Eosinophil# 0.79 X10^3/uL; Eosinophils% 7.6 % (0-5); Hematocrit 31.9 % (37-47); Hemoglobin 9.3 g/dL (12.0-15.0); Lymphocyte # 1.25 X10^3/ul (0.83-4.51); Mean Corp Hgb Conc 29.2 g/dL (32-36); Mean Corpuscular Hgb 30.1 pg (27.0-32.0); Mean Corpuscular Volume 103.2 fL (81-99); Monocyte# 0.45 X10^3/uL; Monocyte% 4.3 % (0-10); NRBC Flagged by Analyzer 0 % (0-5); Neutrophil # 7.84 X10^3/uL (2.7-7.7); Neutrophil % 75.1 % (47-70); POSITIVE MORPHOLOGY YES; Platelet Count 163 K/mm3 (150-450); RBC Distribution Width CV 17.7 % (11.6-14.6); RBC Distribution Width SD 67.4 fl (35.1-43.9); Red Blood Count 3.09 M/mm3 (4.2-5.4); White Blood Count 10.4 K/mm3 (4.4-11.0)
[2022-05-30 03:51] LABS: Differential Indicated SCAN CRITERIA MET
[2022-05-30 03:56] LABS: Anion Gap 3 (5-15); BUN 47 mg/dL (7-18); BUN/Creat Ratio 49.5 RATIO (10-20); Calcium,Total 8.8 mg/dL (8.5-10.1); Chloride 115 mmol/L (98-107); Creatinine, Serum 0.95 mg/dL (0.55-1.02); EST Glomerular Filtration Rate 63 mL/min (>60); Est Glom Filt Rate - Afr Amer 76 mL/min (>60); Glucose 151 mg/dL (74-106); Potassium 3.2 mmol/L (3.5-5.1); Sodium Level 147 mmol/L (136-145)
[2022-05-30] MEDS: 0.9% Saline Lock 10 ML Syringe IV ×2 (05:14→20:14)
[2022-05-30] MEDS: Nystatin Powder 15gm Bottle 1 APPLIC TOPICAL ×3 (05:14→19:58)
[2022-05-30] MEDS: CHLORHEXIDINE GLUC 2% CLOTH 1 EACH TOWELETTE TOPICAL (05:15)
[2022-05-30] MEDS: Heparin Injection (Vial) 5,000 UNIT/ML VIAL 5000 UNIT SC ×3 (05:17→20:14)
[2022-05-30 05:41] LABS: Bedside Glucose 138 mg/dL (74-106)
[2022-05-30 06:28] LABS: Anisocytosis 1+; Macrocytosis 1+
[2022-05-30] MEDS: Ipratropium/Albuterol Sulfate 3 ML AMPUL.NEB INHALATION (07:01)
--- NOTE | 2022-05-30 07:30 | PN.CC_ITS ---
Assessment & Plan Assessment/Plan (1) Septic shock: PLAN: Plan RECOMMENDATIONS: 1. Wean supplemental oxygen as tolerated to maintain saturations at or above 90%. 2. Dietary advancement per speech therapy. 3. Antimicrobials per ID recommendations. 4. Diuresis as tolerated by hemodynamics and renal function. 5. Continue IV amiodarone infusion until patient can tolerate p.o. intake. 6. Encourage incentive spirometer use while in bed. 7. Transition from DuoNebs to Atrovent aerosols. IMPRESSIONS: 1. Septic shock Resolved. The patient presented with sepsis secondary to ESBL pneumonia with acute sepsis related organ dysfunction as evidenced by decompensated respiratory failure requiring intubation and invasive mechanical ventilatory support along with acute kidney injury. The patient was able to be successfully extubated and is doing well from a respiratory perspective. Plan to continue antimicrobials per ID recommendations. The patient remains hemodynamically stable. 2. Encephalopathy Resolved. Most likely metabolic in etiology in the setting of #1. 3. Acute on chronic combined respiratory failure The patient did grow ESBL E. coli in her sputum indicating pneumonia on presentation as an etiology of her respiratory failure. Plan to continue scheduled bronchodilators over concerns for underlying obstructive lung disease. Continue diuresis as tolerated by hemodynamics and renal function. 4. 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 Continue diuresis as noted above. Continue home medications as tolerated. This note was generated with [employer] dictation software. It may contain incorrect words, spelling, and punctuation that were not noted in checking the note before signing. Subjective Subjective The patient was seen and examined at the bedside this morning. Events from the last 24 hours have been reviewed. The patient is currently afebrile, hemodynamically stable and maintaining appropriate oxygen saturations on 5 L/min via nasal cannula. The patient failed her swallow evaluation yesterday. She ultimately had to be restarted on amiodarone infusion due to n.p.o. status and atrial fibrillation with RVR. Potassium is low this morning at 3.2. Creatinine remains stable. Objective Data Objective Data The patient's most recent lab work, culture data and imaging studies have all been personally reviewed. Surface echocardiogram from May 08 demonstrated normal LV size and function with an ejection fraction of 55%. Mild to moderate global RV systolic dysfunction was noted along with a pulmonary artery systolic pressure of 50 mmHg. Sputum culture dated May 21 was positive for ESBL E. coli. Vital Signs: Vital Signs Temp Pulse Resp BP Pulse Ox O2 Del Method O2 Flow Rate 97.1 F L 111 H 21 H 117/75 98 Nasal Cannula 5 05/30/22 03:00 05/30/22 07:00 05/30/22 07:00 05/30/22 07:00 05/30/22 07:00 05/30/22 07:00 05/30/22 07:00 FiO2 40 05/28/22 08:00 Oxygen Flow Rate (L/min) 5 Oxygen Delivery Method Nasal Cannula Weight: 211 lb 3.245 oz Body Mass Index (BMI) 35.2 Intake & Output: Intake and Output for Last 24 Hours 05/28/22 05/29/22 05/30/22 23:59 23:59 23:59 Intake Total 1216.99 / 1216.99 1632.35 / 1649.05 253.88 / 253.88 Output Total 1900 / 2050 1700 / 1700 400 / 400 Balance -683.01 / -833.01 -67.65 / -50.95 -146.12 / -146.12 Lab / Micro Data Attestation: I reviewed the patient's lab results. Result Diagrams: 05/30/22 03:14 05/30/22 03:14 Labs: Laboratory Results - last 24 hr 05/29/22 12:17: POC Glucose 158 H 05/29/22 14:00: Vancomycin Trough 25.6 H 05/29/22 16:59: POC Glucose 152 H 05/30/22 00:18: POC Glucose 146 H 05/30/22 03:14: WBC 10.4, RBC 3.09 L, Hgb 9.3 L, Hct 31.9 L, MCV 103.2 H, MCH 30.1, MCHC 29.2 L, RDW Std Deviation 67.4 H, RDW Coeff of Magen 17.7 H, Plt Count 163, MPV 11.0, Immature Gran % (Auto) 0.600, Neut % (Auto) 75.1 H, Lymph % (Auto) 12.0 L, [place] % (Auto) 4.3, Eos % (Auto) 7.6 H, Baso % (Auto) 0.4, Absolute Neuts (auto) 7.8 H, Absolute Lymphs (auto) 1.25, Nucleated RBC % 0, Anisocytosis 1+, Macrocytosis 1+ 05/30/22 03:14: Sodium 147 H, Potassium 3.2 L, Chloride 115 H, Carbon Dioxide 29.0, Anion Gap 3 L, BUN 47 H, Creatinine 0.95, Estim Creat Clear Calc 50.30, Est GFR (MDRD) Af Amer 76, Est GFR (MDRD) Non-Af 63, BUN/Creatinine Ratio 49.5 H , Glucose 151 H, Calcium 8.8 05/30/22 05:13: POC Glucose 138 H Micro: Microbiology 05/28/22 11:30 Suture Gram Stain - Final 05/28/22 11:30 Suture Wound Culture - Preliminary GPC Poss Enterococcus sp 05/24/22 06:35 Wound - Arm Left Gram Stain - Final 05/24/22 06:35 Wound - Arm Left Wound Culture - Final Pseudomonas aeruginosa Staphylococcus haemolyticus Staphylococcus epidermidis 05/24/22 06:35 Wound - Arm Left Anaerobic Culture - Final No anaerobic bacteria isolated. 05/19/22 14:30 Blood Culture (Wb) - Port Blood Culture - Final No growth in 5 days. 05/19/22 13:45 Blood Culture (Wb) - Port Blood Culture - Final No growth in 5 days. 05/20/22 17:40 Sputum, Induced/Lukens Gram Stain - Final 05/20/22 17:40 Sputum, Induced/Lukens Respiratory Culture - Final Escherichia coli 05/19/22 22:20 Transtracheal Aspirate Gram Stain - Final 05/19/22 22:20 Transtracheal Aspirate Respiratory Culture - Final Escherichia coli 05/20/22 04:25 Urine Catheter - Knight Urine Culture - Final Culture exhibits no growth. 05/20/22 04:25 Urine Catheter - Knight Legionella Antigen - Final 05/20/22 04:25 Urine Catheter - Knight Streptococcus pneumoniae Antigen (M - Final 05/19/22 22:20 Mucosa - Nasopharyngeal Respiratory Panel (PCR) - Final Radiography Diagnostic Testing: Radiology Impression Chest X-Ray 05/28/22 07:35 IMPRESSION: Stable exam Electronically Signed: Jose F Jack MD at 9:09 EDT , Rhythm Strip Rhythm Strip: A-fib Rate: 109 Ectopy: None Physical Exam Const alert and no apparent distress Constitutional Narrative: Chronically ill in appearance. General Appearance: cooperative HEENT normocephalic and head/scalp atraumatic Eyes PERRL and EOMs intact bilaterally Neck supple General: trachea midline and CVC in place Chest inspection of chest normal Resp normal respiratory effort Auscultation: diminished lung sounds; Negative for rales, rhonchi or wheezes Cardio S1 normal heart sound and S2 normal heart sound Rate: tachycardic Rhythm: abnormal rhythm GI normal to inspection, nondistended, normoactive bowel sounds Extremity Extremity Narrative: Left AKA. Stump appears intact without any signs of infection. General Extremity: edema right Skin General Skin Exam: venous stasis and dermatitis Neuro CN's II-XII intact bilaterally and no focal motor deficits Psych cooperative and affect normal Charges/Coding Visit Charges Inpatient E&M: 47453 Subs Hosp L2
[2022-05-30] MEDS: Menthol/Lanolin/Calamine/Znox 113 GM Tube 1 APPLIC TOPICAL ×2 (07:58→19:57)
[2022-05-30] MEDS: Potassium Chloride 20mEq/100mL 20 MEQ/100 ML IV.SOLN. 50 MEQ IV BOLUS (08:27)
[2022-05-30] MEDS: Potassium Chloride 20mEq/100mL 20 MEQ/100 ML IV.SOLN. 100 MEQ IV BOLUS (09:16)
--- NOTE | 2022-05-30 10:40 | PCM.PN.ID ---
ID ID: Route of nutrition/ use of supplements: [] Nutritional Intake: [] IV Site: [] Knight Catheter: [] Patient is alert and responsive was successfully extubated 48 hours ago. Currently on nasal cannula O2. No fevers. Antimicrobial regimen reviewed. Alert responsive vital signs reviewed currently euthermic. Lungs with some scattered rhonchi heart exam S1-S2 abdomen soft nontender. Left AKA stump incision is intact there is no erythema nor drainage. Laboratory studies and microbiology data reviewed Assessment & Plan Assessment/Plan (1) Pneumonia involving right lung: PLAN: Continue meropenem. We will discontinue vancomycin at this point.
--- NOTE | 2022-05-30 11:40 | CASEMGMT ---
Social Work SW attempting to speak with pt regarding discharge plan. Pt was awake and alert but did not appear to want to engage in conversation. Pt did speak but voice was low and inaudible. SW asked about returning to the [facility] upon discharge and pt shook head yes. SW called pt son, Chava, to follow up and confirm that family is okay with this. Chava answered and SW asked about discharge planning. Chava agreeable, stated [facility] is where family wants pt to go when discharged. Chava voiced concern with MD that sees pt as [facility]. SW unaware of this MD but encouraging Chava to call budsman with complaints if Chava feels it is warranted. Chava shared that pt has been overdosed with insulin and Chava feels this is the MD from [facility]'s fault and the the Ombudsman will be called. Chava stated I just wish they could give us a choice on the doctor. We are happy with her care at the [facility] and the facility itself so we don't need a new penitentiary list, we just wish there was another doctor who could see her. PLAN: [facility], when medically ready JAYY Georges
[2022-05-30 11:45] LABS: Bedside Glucose 128 mg/dL (74-106)
--- NOTE | 2022-05-30 14:23 | PN_ITS ---
Subjective Subjective Patient seen and examined. She was quite drowsy and so couldnt answer questions. Unable to do review of systems. SHe has remained hemodynamically stable. She is on 4L of oxygen. Objective Data Objective Data Vital Signs: Vital Signs Temp Pulse Resp BP Pulse Ox O2 Del Method O2 Flow Rate 97.8 F 114 H 18 136/72 H 94 Nasal Cannula 4 05/30/22 12:00 05/30/22 12:00 05/30/22 12:00 05/30/22 12:00 05/30/22 12:00 05/30/22 13:00 05/30/22 13:00 FiO2 40 05/28/22 08:00 Oxygen Flow Rate (L/min) 4 Oxygen Delivery Method Nasal Cannula Weight: 211 lb 3.245 oz Body Mass Index (BMI) 35.2 Intake & Output: Intake and Output for Last 24 Hours 05/28/22 05/29/22 05/30/22 23:59 23:59 23:59 Intake Total 1216.99 / 1216.99 1632.35 / 1649.05 708.91 / 708.91 Output Total 1900 / 2050 1700 / 1700 850 / 850 Balance -683.01 / -833.01 -67.65 / -50.95 -141.09 / -141.09 Lab / Micro Data Result Diagrams: 05/30/22 03:14 05/30/22 03:14 Labs: Laboratory Results - last 24 hr 05/29/22 14:00: Vancomycin Trough 25.6 H 05/29/22 16:59: POC Glucose 152 H 05/30/22 00:18: POC Glucose 146 H 05/30/22 03:14: WBC 10.4, RBC 3.09 L, Hgb 9.3 L, Hct 31.9 L, MCV 103.2 H, MCH 30.1, MCHC 29.2 L, RDW Std Deviation 67.4 H, RDW Coeff of Magen 17.7 H, Plt Count 163, MPV 11.0, Immature Gran % (Auto) 0.600, Neut % (Auto) 75.1 H, Lymph % (Auto) 12.0 L, [place] % (Auto) 4.3, Eos % (Auto) 7.6 H, Baso % (Auto) 0.4, Absolute Neuts (auto) 7.8 H, Absolute Lymphs (auto) 1.25, Nucleated RBC % 0, Anisocytosis 1+, Macrocytosis 1+ 05/30/22 03:14: Sodium 147 H, Potassium 3.2 L, Chloride 115 H, Carbon Dioxide 29.0, Anion Gap 3 L, BUN 47 H, Creatinine 0.95, Estim Creat Clear Calc 50.30, Est GFR (MDRD) Af Amer 76, Est GFR (MDRD) Non-Af 63, BUN/Creatinine Ratio 49.5 H , Glucose 151 H, Calcium 8.8 05/30/22 05:13: POC Glucose 138 H 05/30/22 11:17: POC Glucose 128 H Micro: Microbiology 05/28/22 11:30 Suture Gram Stain - Final 05/28/22 11:30 Suture Wound Culture - Preliminary Enterococcus faecium Staphylococcus species 05/24/22 06:35 Wound - Arm Left Gram Stain - Final 05/24/22 06:35 Wound - Arm Left Wound Culture - Final Pseudomonas aeruginosa Staphylococcus haemolyticus Staphylococcus epidermidis 05/24/22 06:35 Wound - Arm Left Anaerobic Culture - Final No anaerobic bacteria isolated. 05/19/22 14:30 Blood Culture (Wb) - Port Blood Culture - Final No growth in 5 days. 05/19/22 13:45 Blood Culture (Wb) - Port Blood Culture - Final No growth in 5 days. 05/20/22 17:40 Sputum, Induced/Lukens Gram Stain - Final 05/20/22 17:40 Sputum, Induced/Lukens Respiratory Culture - Final Escherichia coli 05/19/22 22:20 Transtracheal Aspirate Gram Stain - Final 05/19/22 22:20 Transtracheal Aspirate Respiratory Culture - Final Escherichia coli 05/20/22 04:25 Urine Catheter - Knight Urine Culture - Final Culture exhibits no growth. 05/20/22 04:25 Urine Catheter - Knight Legionella Antigen - Final 05/20/22 04:25 Urine Catheter - Knight Streptococcus pneumoniae Antigen (M - Final 05/19/22 22:20 Mucosa - Nasopharyngeal Respiratory Panel (PCR) - Final Rhythm Strip Rhythm Strip: A-fib Rate: 109 Ectopy: None Physical Exam Const Constitutional Narrative: Confused, lethargic. HEENT normocephalic, head/scalp atraumatic and moist oral mucous membranes Eyes PERRL and EOMs intact bilaterally Neck supple and no JVD Lymph Lymphatic: no lymphadenopathy noted Resp Resp Narrative: Mildly diminished breath sounds bibasally. No wheezes or crackles. On 4 L of oxygen by nasal cannula. Cardio regular rate, regular rhythm, S1 normal heart sound, S2 normal heart sound and no murmurs Cardio Narrative: Tachycardic GI normal to inspection, nondistended, normoactive bowel sounds, soft to palpation, non-tender and non-distended Extremity normal capillary refill, no clubbing, cyanosis or edema and no calf tenderness Extremity Narrative: 2+ edema of both upper and lower extremities Skin Skin Narrative: left AKA, intact stump General Skin Exam: no breakdown Neuro Neuro Narrative: lethargic Psych Psych Narrative: confused, lethargic Assessment & Plan Assessment/Plan (1) Acute on chronic respiratory failure with hypoxia and hypercapnia: (2) Atrial fibrillation with rapid ventricular response: (3) Severe sepsis: PLAN: Plan #Acute hypoxic respiratory failure due to HFpEF and E coli pneumonia * remains on 4L of oxygen. * on lasix and IV meropenem * critical care on board * titrate oxygen to maintain sats >90% * breathing treatment with bronchodilators * #Septic shock due to ESBL E coli * Id on board * on meropenem and vancomycin; per ID, vancomycin dc'd today. * now off vasopressors * ESBL cultures in tracheal aspirate * * #LUE wound infection * wound cultures gew Pseudomonas, gram-positive cocci possibly Enterococcus. ID on board. On meropenem. Wound cultures also grew staph epidermidis and staph hemolyticus. * #Hypernatremia: Improving. sodium remains 147. Will monitor MIKE on CKD: resolved. Cr is down to 0.95 #Type 2 diabetes mellitus: On insulin sliding scale. 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 Intact dressing over stump. Will monitor #Hypothyroidism;on synthroid. TSH was elevated but this would likely not be very accurate in light of her acute illness. Will benefit from follow-up on outpatient basis. #CAD s/p stent: On aspirin and statin #A-fib: Still remains tachycardic. Eliquis held. Cardizem and metoprolol held on account of septic shock. She remains on amiodarone drip as she keeps failing swallow tests. DVT prophylaxis: On heparin Total time spent on evaluation and management of patient, reviewing chart and specialist notes, discussion with nursing and ancillary staff as well as documentation: 50 mins Charges/Coding Visit Charges Inpatient E&M: 11216 Subs Hosp L2
[2022-05-30 18:20] LABS: Bedside Glucose 128 mg/dL (74-106)
[2022-05-30] MEDS: Furosemide 500 MG in Empty Viaflex 50 mL 1 EACH CONT INF (19:57)
[2022-05-30] MEDS: Ipratropium 0.5 MG/2.5 ML SOLUTION INHALATION (20:07)
[2022-05-30] MEDS: Senna/Docusate Sodium 1 Tablet 2 TABLET PO (20:15)
[2022-05-30] MEDS: Mirtazapine 15 MG Tablet PO (20:15)
[2022-05-31] VITALS (19 sets, daily range): BP systolic 102–141; BP diastolic 67–110; PULSE 106–125; RESP 16–27; TEMP 35.5–36.9; O2SAT 91–98; BMI 34.4
[2022-05-31 00:16] LABS: Bedside Glucose 129 mg/dL (74-106)
[2022-05-31 03:44] LABS: Absolute Lymphocyte Count 1.18 X10^3/uL (0.83-4.51); Absolute Neutrophil Count 7.2 X10^3/uL (2.0-7.7); Basophil# 0.03 X10^3/uL; Basophil% 0.3 % (0-1); Eosinophil# 0.76 X10^3/uL; Eosinophils% 7.9 % (0-5); Hematocrit 31.8 % (37-47); Hemoglobin 9.5 g/dL (12.0-15.0); Lymphocyte # 1.18 X10^3/ul (0.83-4.51); Lymphocyte % 12.2 % (19-41); Mean Corp Hgb Conc 29.9 g/dL (32-36); Mean Corpuscular Hgb 30.4 pg (27.0-32.0); Mean Corpuscular Volume 101.6 fL (81-99); Mean Platelet Vol. 10.3 fl (6.2-12.0); Monocyte# 0.46 X10^3/uL; Monocyte% 4.8 % (0-10); NRBC Flagged by Analyzer 0 % (0-5); Neutrophil # 7.18 X10^3/uL (2.7-7.7); Neutrophil % 74.4 % (47-70); POSITIVE MORPHOLOGY YES; Platelet Count 154 K/mm3 (150-450); RBC Distribution Width CV 17.6 % (11.6-14.6); RBC Distribution Width SD 65.2 fl (35.1-43.9); Red Blood Count 3.13 M/mm3 (4.2-5.4); White Blood Count 9.7 K/mm3 (4.4-11.0)
[2022-05-31 03:46] LABS: Differential Indicated SCAN CRITERIA MET
[2022-05-31 04:00] LABS: Anion Gap 6 (5-15); BUN 41 mg/dL (7-18); BUN/Creat Ratio 46.3 RATIO (10-20); Calcium,Total 8.9 mg/dL (8.5-10.1); Chloride 115 mmol/L (98-107); Creatinine, Serum 0.88 mg/dL (0.55-1.02); EST Glomerular Filtration Rate 68 mL/min (>60); Est Glom Filt Rate - Afr Amer 82 mL/min (>60); Glucose 136 mg/dL (74-106); Potassium 3.2 mmol/L (3.5-5.1); Sodium Level 150 mmol/L (136-145)
[2022-05-31 04:09] LABS: Anisocytosis 1+; Macrocytosis 1+
[2022-05-31 06:55] LABS: Bedside Glucose 116 mg/dL (74-106)
[2022-05-31] MEDS: Heparin Injection (Vial) 5,000 UNIT/ML VIAL 5000 UNIT SC ×3 (07:00→20:22)
[2022-05-31] MEDS: Nystatin Powder 15gm Bottle 1 APPLIC TOPICAL ×3 (07:01→20:21)
[2022-05-31] MEDS: Levothyroxine 125 MCG Tablet PO (07:02)
[2022-05-31] MEDS: Ipratropium 0.5 MG/2.5 ML SOLUTION INHALATION ×2 (07:37→19:20)
--- NOTE | 2022-05-31 08:10 | PCM.PN.INT ---
Assessment & Plan Assessment/Plan (1) Septic shock: PLAN: Plan RECOMMENDATIONS: 1. Wean supplemental oxygen as tolerated to maintain saturations at or above 90%. 2. Dietary advancement per speech therapy. 3. Antimicrobials per ID recommendations. 4. Stop Lasix infusion. 5. Transition from IV to p.o. amiodarone. 6. Encourage incentive spirometer use while in bed. 7. Continue scheduled Atrovent aerosols. 8. Start D5W on account of hypernatremia. IMPRESSIONS: 1. Septic shock Resolved. The patient presented with sepsis secondary to ESBL pneumonia with acute sepsis related organ dysfunction as evidenced by decompensated respiratory failure requiring intubation and invasive mechanical ventilatory support along with acute kidney injury. The patient was able to be successfully extubated and is doing well from a respiratory perspective. Plan to continue antimicrobials per ID recommendations. The patient remains hemodynamically stable. 2. Encephalopathy Resolved. Most likely metabolic in etiology in the setting of #1. 3. Acute on chronic combined respiratory failure The patient did grow ESBL E. coli in her sputum indicating pneumonia on presentation as an etiology of her respiratory failure. Plan to continue scheduled bronchodilators over concerns for underlying obstructive lung disease. Diuretics have been discontinued due to hypernatremia. 4. 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 Continue home medications as tolerated. This note was generated with [employer] dictation software. It may contain incorrect words, spelling, and punctuation that were not noted in checking the note before signing. Subjective Subjective The patient was seen and examined at the bedside this morning. Events from the last 24 hours have been reviewed. The patient is currently afebrile, hemodynamically stable and maintaining appropriate oxygen saturations on 4 L/min via nasal cannula. The patient is documented to be overall net +8.9 L for the hospitalization. Sodium has increased to 150 with a chloride of 115. Creatinine is within normal limits. Objective Data Objective Data The patient's most recent lab work, culture data and imaging studies have all been personally reviewed. Surface echocardiogram from May 08 demonstrated normal LV size and function with an ejection fraction of 55%. Mild to moderate global RV systolic dysfunction was noted along with a pulmonary artery systolic pressure of 50 mmHg. Sputum culture dated May 21 was positive for ESBL E. coli. Vital Signs: Vital Signs Temp Pulse Resp BP Pulse Ox O2 Del Method O2 Flow Rate 96 F L 110 H 20 H 137/87 H 93 Nasal Cannula 4 05/31/22 05:00 05/31/22 07:37 05/31/22 07:37 05/31/22 07:00 05/31/22 07:37 05/31/22 07:37 05/31/22 07:37 FiO2 40 05/28/22 08:00 Oxygen Flow Rate (L/min) 4 Oxygen Delivery Method Nasal Cannula Weight: 206 lb 12.697 oz Body Mass Index (BMI) 34.4 Intake & Output: Intake and Output for Last 24 Hours 05/29/22 05/30/22 05/31/22 23:59 23:59 23:59 Intake Total 1632.35 / 1649.05 1162.93 / 1167.54 171.77 / 171.77 Output Total 1700 / 1700 2350 / 2350 450 / 450 Balance -67.65 / -50.95 -1187.07 / -1182.46 -278.23 / -278.23 Lab / Micro Data Attestation: I reviewed the patient's lab results. Result Diagrams: 05/31/22 03:41 05/31/22 03:41 Labs: Laboratory Results - last 24 hr 05/30/22 11:17: POC Glucose 128 H 05/30/22 18:00: POC Glucose 128 H 05/30/22 20:07: Random Vancomycin 22.0 H 05/30/22 23:43: POC Glucose 129 H 05/31/22 03:41: WBC 9.7, RBC 3.13 L, Hgb 9.5 L, Hct 31.8 L, MCV 101.6 H, MCH 30.4, MCHC 29.9 L, RDW Std Deviation 65.2 H, RDW Coeff of Magen 17.6 H, Plt Count 154, MPV 10.3, Immature Gran % (Auto) 0.400, Neut % (Auto) 74.4 H, Lymph % (Auto) 12.2 L, [place]uther[place] % (Auto) 4.8, Eos % (Auto) 7.9 H, Baso % (Auto) 0.3, Absolute Neuts (auto) 7.2, Absolute Lymphs (auto) 1.18, Nucleated RBC % 0, Anisocytosis 1+, Macrocytosis 1+ 05/31/22 03:41: Sodium 150 H, Potassium 3.2 L, Chloride 115 H, Carbon Dioxide 29.0, Anion Gap 6, BUN 41 H, Creatinine 0.88, Estim Creat Clear Calc 54.30, Est GFR (MDRD) Af Amer 82, Est GFR (MDRD) Non-Af 68, BUN/Creatinine Ratio 46.3 H, Glucose 136 H, Calcium 8.9 05/31/22 06:36: POC Glucose 116 H Micro: Microbiology 05/28/22 11:30 Suture Gram Stain - Final 05/28/22 11:30 Suture Wound Culture - Preliminary Enterococcus faecium Staphylococcus species 05/24/22 06:35 Wound - Arm Left Gram Stain - Final 05/24/22 06:35 Wound - Arm Left Wound Culture - Final Pseudomonas aeruginosa Staphylococcus haemolyticus Staphylococcus epidermidis 05/24/22 06:35 Wound - Arm Left Anaerobic Culture - Final No anaerobic bacteria isolated. 05/19/22 14:30 Blood Culture (Wb) - Port Blood Culture - Final No growth in 5 days. 05/19/22 13:45 Blood Culture (Wb) - Port Blood Culture - Final No growth in 5 days. 05/20/22 17:40 Sputum, Induced/Lukens Gram Stain - Final 05/20/22 17:40 Sputum, Induced/Lukens Respiratory Culture - Final Escherichia coli 05/19/22 22:20 Transtracheal Aspirate Gram Stain - Final 05/19/22 22:20 Transtracheal Aspirate Respiratory Culture - Final Escherichia coli 05/20/22 04:25 Urine Catheter - Knight Urine Culture - Final Culture exhibits no growth. 05/20/22 04:25 Urine Catheter - Knight Legionella Antigen - Final 05/20/22 04:25 Urine Catheter - Knight Streptococcus pneumoniae Antigen (M - Final 05/19/22 22:20 Mucosa - Nasopharyngeal Respiratory Panel (PCR) - Final Radiography Diagnostic Testing: Radiology Impression Chest X-Ray 05/28/22 07:35 IMPRESSION: Stable exam Electronically Signed: Jose F Jack MD at 9:09 EDT , Rhythm Strip Rhythm Strip: A-fib Rate: 109 Ectopy: None Physical Exam Const alert and no apparent distress Constitutional Narrative: Chronically ill in appearance. General Appearance: cooperative HEENT normocephalic and head/scalp atraumatic Eyes PERRL and EOMs intact bilaterally Neck supple General: trachea midline and CVC in place Chest inspection of chest normal Resp normal respiratory effort Auscultation: diminished lung sounds; Negative for rales, rhonchi or wheezes Cardio S1 normal heart sound and S2 normal heart sound Rate: tachycardic Rhythm: abnormal rhythm GI normal to inspection, nondistended, normoactive bowel sounds Extremity Extremity Narrative: Left AKA. Stump appears intact without any signs of infection. General Extremity: edema right Skin General Skin Exam: venous stasis and dermatitis Neuro CN's II-XII intact bilaterally and no focal motor deficits Psych cooperative and affect normal Charges/Coding Visit Charges Inpatient E&M: 56640 Subs Hosp L2
[2022-05-31] MEDS: Potassium Chloride 10mEq/100mL 10 MEQ/100 ML IV.SOLN. 100 MEQ IV BOLUS ×4 (08:36→14:21)
--- NOTE | 2022-05-31 09:55 | CASEMGMT ---
Social Work Both LW and Healthcare POA are scanned into summary tab of [facility], son Chava is POA and son Judd is the 1st alternate. NATAN Oconnell
[2022-05-31] MEDS: Ferrous Sulfate 325 MG Tablet PO (10:47)
[2022-05-31] MEDS: Senna/Docusate Sodium 1 Tablet 2 TABLET PO ×2 (10:47→20:19)
[2022-05-31] MEDS: Paroxetine 20 MG Tablet PO (10:47)
[2022-05-31] MEDS: Amiodarone 200 MG Tablet PO ×2 (10:47→20:20)
[2022-05-31] MEDS: Aspirin 81 MG TAB.CHEW PO (10:47)
[2022-05-31] MEDS: Menthol/Lanolin/Calamine/Znox 113 GM Tube 1 APPLIC TOPICAL ×2 (10:48→20:20)
[2022-05-31 11:20] LABS: Bedside Glucose 131 mg/dL (74-106)
--- NOTE | 2022-05-31 11:52 | CASEMGMT ---
Social Work SW spoke w/pharmacy delivery driver, pt had indicated to him that there is a room for her at [facility]. Pt is here from [place]. SW called son to confirm the plan is for [place], he did confirm this. He states the reason she lost her leg was due to lack of care at [facility]. SW also gave son the number for the ombudsman, as he had indicated when speaking w/SW yesterday he wanted to call in regard to the physician at [place]. SW did hear back from [place], they would like to skill pt. SW advised pt may be ready in the next couple of days so start precert when they think is the correct timing. Pt can return any time, but they will try to get an authorization. SW will continue to follow, plan continues to be to return to [place] when ready. NATAN Oconnell
--- NOTE | 2022-05-31 13:11 | CHAPLAIN ---
Type of Pastoral Visit _x__ Initial Visit ___ Follow-up Visit ___ On-call Visit ___ General Patient Visit ___ Spiritual Assessment ___ Family Conference ___ Bereavement ___ Rapid Response ___ Code Blue ___ Other (describe below) Pastoral Care Referral From _x__ Patient ___ Family ___ Nurse ___ Physician ___ Math Teacher ___ Brand Analyst ___ Other (describe below) Sacrament/Intervention _x__ Active listening ___ Anointing ___ Congregational ___ Bereavement ___ Communion ___ Charo exploration ___ ___ Life review _x__ Prayer ___ Reconciliation ___ Sacrament of Sick _x__ Supportive presence ___ Wedding ___ Other (describe below) Pastoral Comments this patient has been in seen in numerous previous admissions; pt saw this material planning analyst in [facility] and called for same to come into room; pt requested a pen and paper to write down some information; this material planning analyst wrote down information that included a review of places where pt has resided; pt stated that there is a room for me in [place]; explained to pt that her information would be given to SW or CM working on her placement and that this request for placement was outside of scope of service from material planning analyst; pt did welcome the visit and a prayer; consulted with SW about information given by patient
--- NOTE | 2022-05-31 15:05 | PN_ITS ---
Subjective Subjective Patient seen and examined. She was more alert and communicative today. She had no active complaints. Per her nurse, there had been no change overnight. REview of systems is otherwise negative. She has remained hemodynamically stable. Objective Data Objective Data Vital Signs: Vital Signs Temp Pulse Resp BP Pulse Ox O2 Del Method O2 Flow Rate 97.3 F L 117 H 16 139/86 H 94 Nasal Cannula 4 05/31/22 12:45 05/31/22 12:45 05/31/22 12:45 05/31/22 12:45 05/31/22 13:08 05/31/22 12:45 05/31/22 13:08 FiO2 40 05/28/22 08:00 Oxygen Flow Rate (L/min) 4 Oxygen Delivery Method Nasal Cannula Weight: 206 lb 12.697 oz Body Mass Index (BMI) 34.4 Intake & Output: Intake and Output for Last 24 Hours 05/29/22 05/30/22 05/31/22 23:59 23:59 23:59 Intake Total 1632.35 / 1649.05 1162.93 / 1167.54 626.59 / 626.59 Output Total 1700 / 1700 2350 / 2350 450 / 450 Balance -67.65 / -50.95 -1187.07 / -1182.46 176.59 / 176.59 Lab / Micro Data Result Diagrams: 05/31/22 03:41 05/31/22 03:41 Labs: Laboratory Results - last 24 hr 05/30/22 18:00: POC Glucose 128 H 05/30/22 20:07: Random Vancomycin 22.0 H 05/30/22 23:43: POC Glucose 129 H 05/31/22 03:41: WBC 9.7, RBC 3.13 L, Hgb 9.5 L, Hct 31.8 L, MCV 101.6 H, MCH 30.4, MCHC 29.9 L, RDW Std Deviation 65.2 H, RDW Coeff of Magen 17.6 H, Plt Count 154, MPV 10.3, Immature Gran % (Auto) 0.400, Neut % (Auto) 74.4 H, Lymph % (Auto) 12.2 L, Garland % (Auto) 4.8, Eos % (Auto) 7.9 H, Baso % (Auto) 0.3, Absolute Neuts (auto) 7.2, Absolute Lymphs (auto) 1.18, Nucleated RBC % 0, Anisocytosis 1+, Macrocytosis 1+ 05/31/22 03:41: Sodium 150 H, Potassium 3.2 L, Chloride 115 H, Carbon Dioxide 29.0, Anion Gap 6, BUN 41 H, Creatinine 0.88, Estim Creat Clear Calc 54.30, Est GFR (MDRD) Af Amer 82, Est GFR (MDRD) Non-Af 68, BUN/Creatinine Ratio 46.3 H, Glucose 136 H, Calcium 8.9 05/31/22 06:36: POC Glucose 116 H 05/31/22 10:58: POC Glucose 131 H Micro: Microbiology 05/28/22 11:30 Suture Gram Stain - Final 05/28/22 11:30 Suture Wound Culture - Preliminary Vancomycin Resist. E. faecium Staphylococcus species 05/24/22 06:35 Wound - Arm Left Gram Stain - Final 05/24/22 06:35 Wound - Arm Left Wound Culture - Final Pseudomonas aeruginosa Staphylococcus haemolyticus Staphylococcus epidermidis 05/24/22 06:35 Wound - Arm Left Anaerobic Culture - Final No anaerobic bacteria isolated. 05/19/22 14:30 Blood Culture (Wb) - Port Blood Culture - Final No growth in 5 days. 05/19/22 13:45 Blood Culture (Wb) - Port Blood Culture - Final No growth in 5 days. 05/20/22 17:40 Sputum, Induced/Lukens Gram Stain - Final 05/20/22 17:40 Sputum, Induced/Lukens Respiratory Culture - Final Escherichia coli 05/19/22 22:20 Transtracheal Aspirate Gram Stain - Final 05/19/22 22:20 Transtracheal Aspirate Respiratory Culture - Final Escherichia coli 05/20/22 04:25 Urine Catheter - Knight Urine Culture - Final Culture exhibits no growth. 05/20/22 04:25 Urine Catheter - Knight Legionella Antigen - Final 05/20/22 04:25 Urine Catheter - Knight Streptococcus pneumoniae Antigen (M - Final 05/19/22 22:20 Mucosa - Nasopharyngeal Respiratory Panel (PCR) - Final Rhythm Strip Rhythm Strip: A-fib Rate: 109 Ectopy: None Physical Exam Const alert Constitutional Narrative: Confused HEENT normocephalic, head/scalp atraumatic and moist oral mucous membranes Eyes PERRL and EOMs intact bilaterally Neck no lymphadenopathy, supple and no JVD Lymph Lymphatic: no lymphadenopathy noted Resp Resp Narrative: Mildly diminished breath sounds bibasally. No wheezes or crackles. On 4 L of oxygen by nasal cannula. Cardio regular rate, regular rhythm, S1 normal heart sound, S2 normal heart sound and no murmurs Cardio Narrative: Tachycardic GI normal to inspection, nondistended, normoactive bowel sounds, soft to palpation, non-tender and non-distended Extremity normal capillary refill, no clubbing, cyanosis or edema and no calf tenderness Extremity Narrative: 2+ edema of both upper and lower extremities Skin Skin Narrative: left AKA, intact stump General Skin Exam: no breakdown Neuro CN's II-XII intact bilaterally, no focal motor deficits, no sensory deficits noted and deep tendon reflexes 2+ bilaterally Neuro Narrative: lethargic Motor Exam: strength 5/5 throughout Psych Psych Narrative: confused, lethargic Appearance: appropriate Assessment & Plan Assessment/Plan (1) Acute on chronic respiratory failure with hypoxia and hypercapnia: (2) Atrial fibrillation with rapid ventricular response: (3) Severe sepsis: PLAN: Plan #Acute hypoxic respiratory failure due to HFpEF and E coli pneumonia * remains on 4L of oxygen. * on lasix and IV meropenem * critical care on board * titrate oxygen to maintain sats >90% * breathing treatment with bronchodilators * #Septic shock due to ESBL E coli * Id on board * on meropenem and vancomycin; per ID, vancomycin dc'd today. * now off vasopressors * ESBL cultures in tracheal aspirate * * #LUE wound infection * wound cultures grew Pseudomonas, gram-positive cocci possibly Enterococcus. * ID on board. On meropenem. Wound cultures also grew staph epidermidis and staph hemolyticus. * #Hypernatremia: sodium is up to 150 today. started on D5W infusion. Will trend sodium. #Hypokalemia: K is 3.2. Will replace and trend. MIKE on CKD: resolved. Cr is down to 0.95 #Type 2 diabetes mellitus: On insulin sliding scale. 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 Intact dressing over stump. Will monitor #Hypothyroidism;on synthroid. TSH was elevated but this would likely not be very accurate in light of her acute illness. Will benefit from follow-up on outpatient basis. #CAD s/p stent: On aspirin and statin #A-fib: Still remains tachycardic. Eliquis held. Cardizem and metoprolol held on account of septic shock. She remains on amiodarone drip as she keeps failing swallow tests. DVT prophylaxis: On heparin Total time spent on evaluation and management of patient, reviewing chart and specialist notes, discussion with nursing and ancillary staff as well as documentation: 47 mins Charges/Coding Visit Charges Inpatient E&M: 14162 Subs Hosp L2
[2022-05-31] MEDS: Mirtazapine 15 MG Tablet PO (20:20)
[2022-05-31] MEDS: Insulin Lispro 100 UNIT/ML INSULN.PEN SC (23:51)
[2022-06-01] VITALS (7 sets, daily range): BP systolic 107–139; BP diastolic 76–81; PULSE 110–122; RESP 14–20; TEMP 36.2–36.6; O2SAT 92–985; BMI 35.0
[2022-06-01 00:31] LABS: Bedside Glucose 171 mg/dL (74-106)
--- NOTE | 2022-06-01 05:40 | NURSING ---
Downtime on 06/01/22 from [id number].
[2022-06-01] MEDS: Nystatin Powder 15gm Bottle 1 APPLIC TOPICAL ×2 (05:59→23:41)
[2022-06-01] MEDS: Heparin Injection (Vial) 5,000 UNIT/ML VIAL 5000 UNIT SC ×2 (06:00→15:19)
[2022-06-01] MEDS: Insulin Lispro 100 UNIT/ML INSULN.PEN SC ×2 (06:00→13:03)
[2022-06-01 06:09] LABS: Absolute Neutrophil Count 5.6 X10^3/uL (2.0-7.7); Basophil# 0.03 X10^3/uL; Basophil% 0.4 % (0-1); Eosinophil# 1.02 X10^3/uL; Eosinophils% 12.2 % (0-5); Hemoglobin 9.9 g/dL (12.0-15.0); Lymphocyte % 14.4 % (19-41); Mean Corpuscular Hgb 30.4 pg (27.0-32.0); Mean Corpuscular Volume 101.2 fL (81-99); Mean Platelet Vol. 10.8 fl (6.2-12.0); Monocyte# 0.47 X10^3/uL; Monocyte% 5.6 % (0-10); NRBC Flagged by Analyzer 0 % (0-5); Neutrophil # 5.57 X10^3/uL (2.7-7.7); Neutrophil % 66.9 % (47-70); POSITIVE MORPHOLOGY YES; Platelet Count 161 K/mm3 (150-450); RBC Distribution Width CV 17.7 % (11.6-14.6); RBC Distribution Width SD 65.7 fl (35.1-43.9); Red Blood Count 3.26 M/mm3 (4.2-5.4); White Blood Count 8.3 K/mm3 (4.4-11.0)
[2022-06-01] MEDS: Levothyroxine 125 MCG Tablet PO (06:10)
[2022-06-01 06:17] LABS: Differential Indicated SCAN CRITERIA MET
[2022-06-01 06:22] LABS: Macrocytosis 1+; Platelet Estimate ADEQUATE (ADEQ)
[2022-06-01 06:26] LABS: Bedside Glucose 153 mg/dL (74-106)
--- NOTE | 2022-06-01 06:50 | PN.CC_ITS ---
Assessment & Plan Assessment/Plan (1) Septic shock: PLAN: Plan RECOMMENDATIONS: 1. Wean supplemental oxygen as tolerated to maintain saturations at or above 90%. 2. Dietary advancement per speech therapy. 3. Antimicrobials per ID recommendations. 4. Continue p.o. amiodarone. 5. Encourage incentive spirometer use while in bed. 6. Continue scheduled Atrovent aerosols. 7. Encourage incentive spirometer use while in bed. 8. We will sign off from a critical care perspective. Please call with any additional questions. IMPRESSIONS: 1. Septic shock Resolved. The patient presented with sepsis secondary to ESBL pneumonia with acute sepsis related organ dysfunction as evidenced by decompensated respiratory failure requiring intubation and invasive mechanical ventilatory support along with acute kidney injury. The patient was able to be successfully extubated and is doing well from a respiratory perspective. Plan to continue antimicrobials per ID recommendations. The patient remains hemodynamically stable. 2. Encephalopathy Resolved. Most likely metabolic in etiology in the setting of #1. 3. Acute on chronic combined respiratory failure The patient did grow ESBL E. coli in her sputum indicating pneumonia on presentation as an etiology of her respiratory failure. Plan to continue scheduled bronchodilators over concerns for underlying obstructive lung disease. Diuretics have been discontinued due to hypernatremia. 4. 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 Continue home medications as tolerated. This note was generated with [employer] dictation software. It may contain incorrect words, spelling, and punctuation that were not noted in checking the note before signing. Subjective Subjective The patient was seen and examined at the bedside this morning. Events from the last 24 hours have been reviewed. The patient is currently afebrile, hemodynamically stable and maintaining appropriate oxygen saturations on 4 L/min via nasal cannula. Sodium has improved to 148 this morning with a potassium of 3.3. The patient is being taken for a swallow evaluation this morning. Objective Data Objective Data The patient's most recent lab work, culture data and imaging studies have all been personally reviewed. Surface echocardiogram from May 08 demonstrated normal LV size and function with an ejection fraction of 55%. Mild to moderate global RV systolic dysfunction was noted along with a pulmonary artery systolic pressure of 50 mmHg. Sputum culture dated May 21 was positive for ESBL E. coli. Vital Signs: Vital Signs Temp Pulse Resp BP Pulse Ox O2 Del Method O2 Flow Rate 98.4 F 106 H 22 H 126/82 H 96 Nasal Cannula 4 05/31/22 21:00 05/31/22 21:00 05/31/22 21:00 05/31/22 21:00 05/31/22 21:00 06/01/22 03:00 06/01/22 03:00 FiO2 40 05/28/22 08:00 Oxygen Flow Rate (L/min) 4 Oxygen Delivery Method Nasal Cannula Weight: 210 lb 8.663 oz Body Mass Index (BMI) 35.0 Intake & Output: Intake and Output for Last 24 Hours 05/30/22 05/31/22 06/01/22 23:59 23:59 23:59 Intake Total 1162.93 / 1167.54 1744.09 / 1744.09 120 / 120 Output Total 2350 / 2350 1350 / 1500 450 / 450 Balance -1187.07 / -1182.46 394.09 / 244.09 -330 / -330 Lab / Micro Data Attestation: I reviewed the patient's lab results. Result Diagrams: 06/01/22 03:30 06/01/22 03:30 Labs: Laboratory Results - last 24 hr 05/31/22 06:36: POC Glucose 116 H 05/31/22 10:58: POC Glucose 131 H 05/31/22 23:49: POC Glucose 171 H 06/01/22 03:30: WBC 8.3, RBC 3.26 L, Hgb 9.9 L, Hct 33.0 L, MCV 101.2 H, MCH 30.4, MCHC 30.0 L, RDW Std Deviation 65.7 H, RDW Coeff of Magen 17.7 H, Plt Count 161, MPV 10.8, Immature Gran % (Auto) 0.500, Neut % (Auto) 66.9, Lymph % (Auto) 14.4 L, [place] % (Auto) 5.6, Eos % (Auto) 12.2 H, Baso % (Auto) 0.4, Absolute Neuts (auto) 5.6, Absolute Lymphs (auto) 1.20, Nucleated RBC % 0, Platelet Estimate ADEQUATE, Macrocytosis 1+ 06/01/22 05:58: POC Glucose 153 H Micro: Microbiology 05/28/22 11:30 Suture Gram Stain - Final 05/28/22 11:30 Suture Wound Culture - Preliminary Vancomycin Resist. E. faecium Staphylococcus species 05/24/22 06:35 Wound - Arm Left Gram Stain - Final 05/24/22 06:35 Wound - Arm Left Wound Culture - Final Pseudomonas aeruginosa Staphylococcus haemolyticus Staphylococcus epidermidis 05/24/22 06:35 Wound - Arm Left Anaerobic Culture - Final No anaerobic bacteria isolated. 05/19/22 14:30 Blood Culture (Wb) - Port Blood Culture - Final No growth in 5 days. 05/19/22 13:45 Blood Culture (Wb) - Port Blood Culture - Final No growth in 5 days. 05/20/22 17:40 Sputum, Induced/Lukens Gram Stain - Final 05/20/22 17:40 Sputum, Induced/Lukens Respiratory Culture - Final Escherichia coli 05/19/22 22:20 Transtracheal Aspirate Gram Stain - Final 05/19/22 22:20 Transtracheal Aspirate Respiratory Culture - Final Escherichia coli 05/20/22 04:25 Urine Catheter - Knight Urine Culture - Final Culture exhibits no growth. 05/20/22 04:25 Urine Catheter - Knight Legionella Antigen - Final 05/20/22 04:25 Urine Catheter - Knight Streptococcus pneumoniae Antigen (M - Final 05/19/22 22:20 Mucosa - Nasopharyngeal Respiratory Panel (PCR) - Final Radiography Diagnostic Testing: Radiology Impression Chest X-Ray 05/28/22 07:35 IMPRESSION: Stable exam Electronically Signed: Jose F Jack MD at 9:09 EDT , Rhythm Strip Rhythm Strip: A-fib Rate: 109 Ectopy: None Physical Exam Const alert and no apparent distress Constitutional Narrative: Chronically ill in appearance. General Appearance: cooperative HEENT normocephalic and head/scalp atraumatic Eyes PERRL and EOMs intact bilaterally Neck supple General: trachea midline and CVC in place Chest inspection of chest normal Resp normal respiratory effort Auscultation: diminished lung sounds; Negative for rales, rhonchi or wheezes Cardio S1 normal heart sound and S2 normal heart sound Rate: tachycardic Rhythm: abnormal rhythm GI normal to inspection, nondistended, normoactive bowel sounds Extremity Extremity Narrative: Left AKA. Stump appears intact without any signs of infection. General Extremity: edema right Skin General Skin Exam: venous stasis and dermatitis Neuro CN's II-XII intact bilaterally and no focal motor deficits Psych cooperative and affect normal Charges/Coding Visit Charges Inpatient E&M: 99049 Subs Hosp L2
[2022-06-01] MEDS: Ipratropium 0.5 MG/2.5 ML SOLUTION INHALATION ×3 (07:48→19:52)
[2022-06-01 08:26] LABS: BUN 39 mg/dL (7-18); BUN/Creat Ratio 41.9 RATIO (10-20); Calcium,Total 8.8 mg/dL (8.5-10.1); Creatinine, Serum 0.93 mg/dL (0.55-1.02); EST Glomerular Filtration Rate 64 mL/min (>60); Est Glom Filt Rate - Afr Amer 78 mL/min (>60); Estimated Creatinine Clearance 51.38 ml/min; Glucose 183 mg/dL (74-106); Potassium 3.3 mmol/L (3.5-5.1); Sodium Level 148 mmol/L (136-145)
[2022-06-01 08:27] LABS: Anion Gap 5 (5-15); Chloride 113 mmol/L (98-107)
--- NOTE | 2022-06-01 09:09 | SP.MBSS_ITS ---
Modified Barium Swallow - Patient Information Study Date: 06/01/22 Study Time: 09:20 Direct Billable Minutes: 76 Total Minutes procedure & reportin Diagnosis: PNA of R lung (J18.9), COPD exacerbation (J44.9) Referring Physician: Quynh Aldrich Reason for Referral: Objectively assess swallow function, assess risk for aspiration, and determine recommendations for least restrictive diet textures and compensatory strategies to improve safety of swallow. Medical History: Monique Lincoln is a 67-year-old female who presented to [facility] on 05/[facility] from [facility] with shortness of breath and severe hypotension. She was admitted for sepsis, acute renal failure, acute respiratory failure, PNA, and COPD exacerbation. Admitting chest X-ray demonstrated bilateral pleural effusions with possible infiltrate. Pt was intubated on 05/19/22 and extubated on 05/28/22 for a total of [address] was consulted for swallow evaluation on 05/28/22 post extubation. [employer] recommended pt NPO with ice chips w/ staff and meds crushed in applesauce 05/30/2022. She was recommended for MBSS to consider patient for diet advancement. Current Diet Ordered: NPO Dentition: Missing Teeth Mental Status: Impaired Respiratory Status: Oxygenating on 4L/M nasal cannula - Penetration-Aspiration Scale Penetration-Aspiration Scale: OBJECTIVE ASSESSMENT OF SWALLOW FUNCTION (QUANTITATIVE ? PER TRIAL): PENETRATION / ASPIRATION SCALE (KU): 1 = does not enter airway 2 = enters airway/above vocal folds/ejected 3 = enters airway/above vocal folds/not ejected 4 = enters airway/contacts vocal folds/ejected 5 = enters airway/contacts vocal folds/not ejected 6 = enters airway/below vocal folds/ejected 7 = enters airway/below vocal folds/not ejected despite effort 8 = enters airway/below vocal folds/no effort VIDEOFLOROSCOPIC SCALE SCORE (KU): Grade I = aspiration of material that has penetrated into the laryngeal vestibule, intact cough reflex Grade II = aspiration < 10 % of the bolus, intact cough reflex Grade III = aspiration of < 10 % of the bolus, reduced cough reflex or aspiration of > 10 % of the bolus, intact cough reflex Grade IV = aspiration of > 10 % of the bolus, reduced cough reflex - Penetration-Aspiration Scale Score Thin Liquid via teaspoon Result: 1= does not enter airway Thin Liquid via teaspoon Trial 2 Result: 1= does not enter airway Thin Liquid via small single sip from cup Result: 3= enters airways/above vocal folds/not ejected [place] Thick Liquid via small single sip from cup Result: 3= enters airways/above vocal folds/not ejected Comment: Pt began gagging, dry heaving, and refused additional trials. - Oral Phase Labial Seal: No Labial Escape Tongue Control During Bolus Hold: Posterior escape of less than half of bolus Bolus Transport/Lingual Motion: Delayed initiation of tongue motion Oral Residue: Trace residue lining oral structures - Pharyngeal Phase Initiation of Pharyngeal Swallow: Bolus head in pyriforms Soft Palate Elevation: No bolus between soft palate and pharyngeal wall Laryngeal Elevation: Partial superior movement thyroid cart/partial apprx aryt- epig petiole Anterior Hyoid Excursion: Partial anterior movement Epiglottic Movement: Partial inversion Laryngeal Vestibule Closure at Height of Swallow: Incomplete; narrow column of air/contrast in laryngeal vestibule Pharyngeal Stripping Wave: Present - diminished Pharyngoesophageal Segment Opening: Complete distension and complete duration; no obstruction of flow Tongue Base Retraction: Narrow column of contrast between tongue base & post. pharyngeal wall Pharyngeal Residue: Collection of residue within or on pharyngeal structures - Diagnosis/Impression Diagnosis: Moderate oropharyngeal phase (R13.12) Impression: The oral phase is primarily marked by... -Decreased bolus control with <1/2 of the bolus spilling posteriorly to the pyriforms prior to swallow onset observed with thin liquid by tsp. Posterior loss of thin by cup and nectar by cup to the pharynx prior to swallow onset, as well. -Delayed tongue motion for A-P transport. -Did not complete cookie trial due to patient refusal for additional trials due to gagging and dry heaving following completion of thin and nectar thick barium. The pharyngeal phase is primarily marked by... -Decreased airway closure during the swallow due to partial anterior hyoid excursion, partial epiglottic inversion, and decreased laryngeal elevation. -Mildly decreased tongue base retraction and partial pharyngeal stripping wave with resulting trace-mild pharyngeal residues after the swallow with thin and nectar thick liquids. -Laryngeal penetration of thin by cup just above the vocal folds, which did not eject from the laryngeal vestibule after the swallow. Increased amount of laryngeal penetration observed with nectar thick by cup, which also did not fully eject from the laryngeal vestibule after the swallow either. No coughing or throat clearing in response to laryngeal penetration. -Although no aspiration was observed during the study, the patient is at increased risk for aspiration with larger bolus sizes due to decreased bolus control, delayed swallow onset, and decreased airway closure during the swallow. The patient has demonstrated frequent coughing with trials of thin liquids at bedside with [employer]; however, trials of puree have been tolerated without s/s of aspiration. - Recommendations Diet: NPO - Ok for meds crushed in applesauce and ice chips with staff following oral care Recommend Repeat Modified Barium Swallow: TBD Need for Skilled Speech Therapy Services: Yes Comment: Will recommend the patient for continued dysphagia therapy to address moderate deficits in oropharyngeal swallow function. [employer] to proceed with trials of thin liquids by tsp and purees by tsp to further assess appropriateness for diet advancement. Will recommend the patient for oropharyngeal strengthening to improve lingual control, tongue base retraction, pharyngeal contraction, and hyolaryngeal elevation/excursion. Consider implementation of lingual resistance exercises, effortful swallows, CTAR, and Amaya as patient is able. Education Completed: 1. Described result of evaluation., 7. Pt requires further education on strategies & risks. - Status Active ST Patient: Active - Contact Information [facility] Speech Therapy:: Laurence Ashraf M.A. [facility] Speech-Language Pathologist [facility] [address] [place] [address] [email or web address] [phone] 06/01/22 11:01
--- NOTE | 2022-06-01 09:32 | CASEMGMT ---
Social Work Updated therapy notes sent to [facility] for precert to be started. JAYY Tijerina
[2022-06-01] MEDS: Potassium Chloride 20mEq/100mL 20 MEQ/100 ML IV.SOLN. 100 MEQ IV BOLUS (10:23)
[2022-06-01] MEDS: CHLORHEXIDINE GLUC 2% CLOTH 1 EACH TOWELETTE TOPICAL (10:23)
[2022-06-01] MEDS: Menthol/Lanolin/Calamine/Znox 113 GM Tube 1 APPLIC TOPICAL ×2 (10:23→23:35)
[2022-06-01] MEDS: Amiodarone 200 MG Tablet PO (11:12)
[2022-06-01] MEDS: Paroxetine 20 MG Tablet PO (11:12)
[2022-06-01] MEDS: Aspirin 81 MG TAB.CHEW PO (11:12)
[2022-06-01] MEDS: Ferrous Sulfate 325 MG Tablet PO (11:12)
--- NOTE | 2022-06-01 12:56 | PN_ITS ---
Subjective Subjective Patient seen and examined. She was more alert today but appeared confused. Review of systems is otherwise negative. She remains on 4L of oxygen and remains slightly tachycardic. Objective Data Objective Data Vital Signs: Vital Signs Temp Pulse Resp BP Pulse Ox O2 Del Method O2 Flow Rate 98.4 F 121 H 14 126/82 H 96 Nasal Cannula 4 05/31/22 21:00 06/01/22 07:48 06/01/22 07:48 05/31/22 21:00 06/01/22 07:48 06/01/22 07:48 06/01/22 07:48 FiO2 40 05/28/22 08:00 Oxygen Flow Rate (L/min) 4 Oxygen Delivery Method Nasal Cannula Weight: 210 lb 8.663 oz Body Mass Index (BMI) 35.0 Intake & Output: Intake and Output for Last 24 Hours 05/30/22 05/31/22 06/01/22 23:59 23:59 23:59 Intake Total 1162.93 / 1167.54 1744.09 / 1744.09 1308.75 / 1308.75 Output Total 2350 / 2350 1350 / 1500 450 / 450 Balance -1187.07 / -1182.46 394.09 / 244.09 858.75 / 858.75 Lab / Micro Data Result Diagrams: 06/01/22 03:30 06/01/22 03:30 Labs: Laboratory Results - last 24 hr 05/31/22 23:49: POC Glucose 171 H 06/01/22 03:30: WBC 8.3, RBC 3.26 L, Hgb 9.9 L, Hct 33.0 L, MCV 101.2 H, MCH 30.4, MCHC 30.0 L, RDW Std Deviation 65.7 H, RDW Coeff of Magen 17.7 H, Plt Count 161, MPV 10.8, Immature Gran % (Auto) 0.500, Neut % (Auto) 66.9, Lymph % (Auto) 14.4 L, Person % (Auto) 5.6, Eos % (Auto) 12.2 H, Baso % (Auto) 0.4, Absolute Neuts (auto) 5.6, Absolute Lymphs (auto) 1.20, Nucleated RBC % 0, Platelet Estimate ADEQUATE, Macrocytosis 1+ 06/01/22 03:30: Sodium 148 H, Potassium 3.3 L, Chloride 113 H, Carbon Dioxide 30.0, Anion Gap 5, BUN 39 H, Creatinine 0.93, Estim Creat Clear Calc 51.38, Est GFR (MDRD) Af Amer 78, Est GFR (MDRD) Non-Af 64, BUN/Creatinine Ratio 41.9 H, Glucose 183 H, Calcium 8.8 06/01/22 05:58: POC Glucose 153 H Micro: Microbiology 05/28/22 11:30 Suture Gram Stain - Final 05/28/22 11:30 Suture Wound Culture - Final Vancomycin Resist. E. faecium Staphylococcus haemolyticus 05/24/22 06:35 Wound - Arm Left Gram Stain - Final 05/24/22 06:35 Wound - Arm Left Wound Culture - Final Pseudomonas aeruginosa Staphylococcus haemolyticus Staphylococcus epidermidis 05/24/22 06:35 Wound - Arm Left Anaerobic Culture - Final No anaerobic bacteria isolated. 05/19/22 14:30 Blood Culture (Wb) - Port Blood Culture - Final No growth in 5 days. 05/19/22 13:45 Blood Culture (Wb) - Port Blood Culture - Final No growth in 5 days. 05/20/22 17:40 Sputum, Induced/Lukens Gram Stain - Final 05/20/22 17:40 Sputum, Induced/Lukens Respiratory Culture - Final Escherichia coli 05/19/22 22:20 Transtracheal Aspirate Gram Stain - Final 05/19/22 22:20 Transtracheal Aspirate Respiratory Culture - Final Escherichia coli 05/20/22 04:25 Urine Catheter - Knight Urine Culture - Final Culture exhibits no growth. 05/20/22 04:25 Urine Catheter - [place] Legionella Antigen - Final 05/20/22 04:25 Urine Catheter - [place] Streptococcus pneumoniae Antigen (M - Final 05/19/22 22:20 Mucosa - Nasopharyngeal Respiratory Panel (PCR) - Final Rhythm Strip Rhythm Strip: A-fib Rate: 109 Ectopy: None Physical Exam Const alert Constitutional Narrative: Confused Orientation / Consciousness: lethargic HEENT normocephalic, head/scalp atraumatic and moist oral mucous membranes Eyes PERRL and EOMs intact bilaterally Neck no lymphadenopathy, supple and no JVD Lymph Lymphatic: no lymphadenopathy noted Resp Resp Narrative: Mildly diminished breath sounds bibasally. No wheezes or crackles. Still on 4 L of oxygen by nasal cannula. Cardio regular rhythm, S1 normal heart sound, S2 normal heart sound and no murmurs Cardio Narrative: Tachycardic GI normal to inspection, nondistended, normoactive bowel sounds, soft to palpation, non-tender and non-distended Extremity normal capillary refill, no clubbing, cyanosis or edema and no calf tenderness Extremity Narrative: 2+ edema of both upper and lower extremities Skin Skin Narrative: left AKA, intact stump General Skin Exam: no breakdown Neuro CN's II-XII intact bilaterally, no focal motor deficits, no sensory deficits noted and deep tendon reflexes 2+ bilaterally Neuro Narrative: lethargic Motor Exam: strength 5/5 throughout Psych Psych Narrative: confused, lethargic Appearance: appropriate Assessment & Plan Assessment/Plan (1) Acute on chronic respiratory failure with hypoxia and hypercapnia: (2) Atrial fibrillation with rapid ventricular response: (3) Severe sepsis: PLAN: Plan #Acute hypoxic respiratory failure due to HFpEF and E coli pneumonia * remains on 4L of oxygen. * Completed a course of meropenem. On Lasix. * critical care on board * titrate oxygen to maintain sats >90% * breathing treatment with bronchodilators * #Septic shock due to ESBL E coli * Id on board * Completed a course of vancomycin and meropenem * now off vasopressors * ESBL cultures in tracheal aspirate * * #LUE wound infection * wound cultures grew Pseudomonas, gram-positive cocci possibly Enterococcus. * ID on board. On meropenem. Wound cultures also grew staph epidermidis and staph hemolyticus. * compleed a course of meropenem * #Hypernatremia:sodium is down to 148 today. Continue D5W #Hypokalemia: K is 3.3. Will replace and trend. MIKE on CKD: resolved. #Type 2 diabetes mellitus: On insulin sliding scale. 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 Intact dressing over stump. Will monitor #Hypothyroidism;on synthroid. TSH was elevated but this would likely not be very accurate in light of her acute illness. Will benefit from follow-up on outpatient basis. #CAD s/p stent: On aspirin and statin #A-fib: Still remains tachycardic. Now on p.o. amiodarone. DVT prophylaxis: On heparin Total time spent on evaluation and management of patient, reviewing chart and specialist notes, discussion with nursing and ancillary staff as well as documentation: 44 mins Charges/Coding Visit Charges Inpatient E&M: 91149 Subs Hosp L2
[2022-06-01 13:26] LABS: Bedside Glucose 160 mg/dL (74-106)
[2022-06-02] VITALS (12 sets, daily range): BP systolic 107–147; BP diastolic 78–101; PULSE 99–128; RESP 18–24; TEMP 36.3–36.9; O2SAT 92–100; BMI 35.0
[2022-06-02 00:51] LABS: Bedside Glucose 125 mg/dL (74-106)
[2022-06-02] MEDS: Levothyroxine 125 MCG Tablet PO (06:24)
[2022-06-02] MEDS: Nystatin Powder 15gm Bottle 1 APPLIC TOPICAL (06:24)
[2022-06-02] MEDS: Heparin Injection (Vial) 5,000 UNIT/ML VIAL 5000 UNIT SC ×3 (06:25→20:02)
[2022-06-02 06:56] LABS: Bedside Glucose 125 mg/dL (74-106)
[2022-06-02] MEDS: Ipratropium 0.5 MG/2.5 ML SOLUTION INHALATION ×3 (07:12→19:20)
[2022-06-02 10:30] LABS: Absolute Lymphocyte Count 1.07 X10^3/uL (0.83-4.51); Absolute Neutrophil Count 5.6 X10^3/uL (2.0-7.7); Basophil# 0.04 X10^3/uL; Basophil% 0.5 % (0-1); Eosinophils% 6.6 % (0-5); Hematocrit 34.6 % (37-47); Hemoglobin 10.4 g/dL (12.0-15.0); Lymphocyte # 1.07 X10^3/ul (0.83-4.51); Lymphocyte % 14.2 % (19-41); Mean Corp Hgb Conc 30.1 g/dL (32-36); Mean Corpuscular Hgb 30.3 pg (27.0-32.0); Mean Corpuscular Volume 100.9 fL (81-99); Mean Platelet Vol. 10.9 fl (6.2-12.0); Monocyte# 0.34 X10^3/uL; Monocyte% 4.5 % (0-10); NRBC Flagged by Analyzer 0 % (0-5); Neutrophil # 5.55 X10^3/uL (2.7-7.7); Neutrophil % 73.7 % (47-70); POSITIVE MORPHOLOGY YES; Platelet Count 185 K/mm3 (150-450); RBC Distribution Width CV 17.7 % (11.6-14.6); RBC Distribution Width SD 66.2 fl (35.1-43.9); Red Blood Count 3.43 M/mm3 (4.2-5.4); White Blood Count 7.5 K/mm3 (4.4-11.0)
[2022-06-02 10:54] LABS: Differential Indicated SCAN CRITERIA MET
[2022-06-02 10:56] LABS: Anisocytosis 2+
[2022-06-02] MEDS: Amiodarone 200 MG Tablet PO ×2 (10:56→20:01)
[2022-06-02] MEDS: Paroxetine 20 MG Tablet PO (10:56)
[2022-06-02] MEDS: Ferrous Sulfate 325 MG Tablet PO (10:56)
[2022-06-02] MEDS: Senna/Docusate Sodium 1 Tablet 2 TABLET PO ×2 (10:56→20:02)
[2022-06-02 10:57] LABS: Differential Comment SCANNED
[2022-06-02 11:04] LABS: Anion Gap 4 (5-15); BUN 36 mg/dL (7-18); Calcium,Total 9.1 mg/dL (8.5-10.1); Chloride 114 mmol/L (98-107); Creatinine, Serum 0.86 mg/dL (0.55-1.02); EST Glomerular Filtration Rate 70 mL/min (>60); Est Glom Filt Rate - Afr Amer 85 mL/min (>60); Estimated Creatinine Clearance 55.57 ml/min; Glucose 133 mg/dL (74-106); Potassium 3.7 mmol/L (3.5-5.1); Sodium Level 148 mmol/L (136-145)
[2022-06-02] MEDS: Aspirin 81 MG TAB.CHEW PO (11:05)
--- NOTE | 2022-06-02 12:44 | CASEMGMT ---
GREG sent updated therapy notes to [facility] via [facility]. Clare Kaufman [employer]
[2022-06-02 13:11] LABS: Bedside Glucose 121 mg/dL (74-106)
--- NOTE | 2022-06-02 13:18 | PCM.PN.ID ---
ID ID: Route of nutrition/ use of supplements: [] Nutritional Intake: [] IV Site: [] Knight Catheter: [] Patient transferred out of the ICU to medical floor. On 4 to 5 L nasal cannula. Denies any phlegm production. No fevers. Remains on meropenem. Denies any diarrhea. Responsive in no acute distress vital signs reviewed remains euthermic lungs with some scattered rhonchi heart exam S1-S2 abdomen soft nontender. Left AKA stump site no erythema or drainage. Assessment & Plan Assessment/Plan (1) Pneumonia involving right lung: PLAN: Overall clinically improving. At this point we will finish off her course of meropenem and discontinue meropenem at this time.
--- NOTE | 2022-06-02 14:16 | PN_ITS ---
Subjective Subjective Patient seen and examined. She still remains lethargic. She still remains tachycardic. Review of systems otherwise negative. She had an uneventful night. She pulled out her central line yesterday and so is awaiting a PICC line insertion. Patient still remains n.p.o. because of not being compliant with speech therapy. Objective Data Objective Data Vital Signs: Vital Signs Temp Pulse Resp BP Pulse Ox O2 Del Method O2 Flow Rate 98.5 F 119 H 20 H 137/91 H 96 Nasal Cannula 5 06/02/22 11:00 06/02/22 11:19 06/02/22 11:19 06/02/22 11:00 06/02/22 11:00 06/02/22 11:00 06/02/22 11:00 FiO2 40 05/28/22 08:00 Oxygen Flow Rate (L/min) 5 Oxygen Delivery Method Nasal Cannula Weight: 210 lb 8.663 oz Body Mass Index (BMI) 35.0 Intake & Output: Intake and Output for Last 24 Hours 05/31/22 06/01/22 06/02/22 23:59 23:59 23:59 Intake Total 1744.09 / 1744.09 1362.10 / 1362.10 0 / 0 Output Total 1350 / 1500 600 / 600 425 / 425 Balance 394.09 / 244.09 762.10 / 762.10 -425 / -425 Lab / Micro Data Result Diagrams: 06/02/22 10:05 06/02/22 10:05 Labs: Laboratory Results - last 24 hr 06/02/22 00:30: POC Glucose 125 H 06/02/22 06:23: POC Glucose 125 H 06/02/22 10:05: WBC 7.5, RBC 3.43 L, Hgb 10.4 L, Hct 34.6 L, MCV 100.9 H, MCH 30.3, MCHC 30.1 L, RDW Std Deviation 66.2 H, RDW Coeff of Magen 17.7 H, Plt Count 185, MPV 10.9, Immature Gran % (Auto) 0.500, Neut % (Auto) 73.7 H, Lymph % (Auto) 14.2 L, [place] % (Auto) 4.5, Eos % (Auto) 6.6 H, Baso % (Auto) 0.5, Absolute Neuts (auto) 5.6, Absolute Lymphs (auto) 1.07, Nucleated RBC % 0, Differential Comment SCANNED, Anisocytosis 2+ 06/02/22 10:05: Sodium 148 H, Potassium 3.7, Chloride 114 H, Carbon Dioxide 30.0, Anion Gap 4 L, BUN 36 H, Creatinine 0.86, Estim Creat Clear Calc 55.57, Est GFR (MDRD) Af Amer 85, Est GFR (MDRD) Non-Af 70, BUN/Creatinine Ratio 42.0 H , Glucose 133 H, Calcium 9.1 06/02/22 12:41: POC Glucose 121 H Micro: Microbiology 05/28/22 11:30 Suture Gram Stain - Final 05/28/22 11:30 Suture Wound Culture - Final Vancomycin Resist. E. faecium Staphylococcus haemolyticus 05/24/22 06:35 Wound - Arm Left Gram Stain - Final 05/24/22 06:35 Wound - Arm Left Wound Culture - Final Pseudomonas aeruginosa Staphylococcus haemolyticus Staphylococcus epidermidis 05/24/22 06:35 Wound - Arm Left Anaerobic Culture - Final No anaerobic bacteria isolated. 05/19/22 14:30 Blood Culture (Wb) - Port Blood Culture - Final No growth in 5 days. 05/19/22 13:45 Blood Culture (Wb) - Port Blood Culture - Final No growth in 5 days. 05/20/22 17:40 Sputum, Induced/Lukens Gram Stain - Final 05/20/22 17:40 Sputum, Induced/Lukens Respiratory Culture - Final Escherichia coli 05/19/22 22:20 Transtracheal Aspirate Gram Stain - Final 05/19/22 22:20 Transtracheal Aspirate Respiratory Culture - Final Escherichia coli 05/20/22 04:25 Urine Catheter - Knight Urine Culture - Final Culture exhibits no growth. 05/20/22 04:25 Urine Catheter - Knight Legionella Antigen - Final 05/20/22 04:25 Urine Catheter - [place] Streptococcus pneumoniae Antigen (M - Final 05/19/22 22:20 Mucosa - Nasopharyngeal Respiratory Panel (PCR) - Final Rhythm Strip Rhythm Strip: A-fib Rate: 109 Ectopy: None Physical Exam Const alert Constitutional Narrative: Confused Orientation / Consciousness: lethargic HEENT normocephalic, head/scalp atraumatic and moist oral mucous membranes Eyes PERRL and EOMs intact bilaterally Neck no lymphadenopathy, supple and no JVD Lymph Lymphatic: no lymphadenopathy noted Resp Resp Narrative: Mildly diminished breath sounds bibasally. No wheezes or crackles. On 5 L of oxygen by nasal cannula. Cardio regular rhythm, S1 normal heart sound, S2 normal heart sound and no murmurs Cardio Narrative: Tachycardic GI normal to inspection, nondistended, normoactive bowel sounds, soft to palpation, non-tender and non-distended Extremity normal capillary refill, no clubbing, cyanosis or edema and no calf tenderness Extremity Narrative: 2+ edema of both upper and lower extremities Skin Skin Narrative: left AKA, intact stump General Skin Exam: no breakdown Neuro CN's II-XII intact bilaterally, no focal motor deficits, no sensory deficits no ravi and deep tendon reflexes 2+ bilaterally Neuro Narrative: lethargic Motor Exam: strength 5/5 throughout Psych thought process normal Psych Narrative: confused, lethargic Appearance: appropriate Assessment & Plan Assessment/Plan (1) Acute on chronic respiratory failure with hypoxia and hypercapnia: (2) Atrial fibrillation with rapid ventricular response: (3) Severe sepsis: PLAN: Plan #Acute hypoxic respiratory failure due to HFpEF and E coli pneumonia * on 5L of oxygen today * Completed a course of meropenem. On Lasix. * critical care on board * titrate oxygen to maintain sats >90% * breathing treatment with bronchodilators * #Septic shock due to ESBL E coli * ID on board * Completed a course of vancomycin and meropenem * now off vasopressors * ESBL cultures in tracheal aspirate * * #LUE wound infection * wound cultures grew Pseudomonas, gram-positive cocci possibly Enterococcus. * ID on board. On meropenem. Wound cultures also grew staph epidermidis and staph hemolyticus. * completed a course of meropenem * #Hypernatremia:sodium is still 148 today. Continue D5W #Hypokalemia:resolved #MIKE on CKD: resolved. #Type 2 diabetes mellitus: On insulin sliding scale. 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 Intact dressing over stump. Will monitor #Hypothyroidism;on synthroid. TSH was elevated but this would likely not be very accurate in light of her acute illness. Will benefit from follow-up on outpatient basis. #CAD s/p stent: On aspirin and statin #A-fib: Still remains tachycardic. Now on p.o. amiodarone. #Dysphagia: has not been very compliant with speech therapy. Still NPO. Speech therapy to evaluate her again today. If she is still not compliant, will need to evaluate for PEG tube. DVT prophylaxis: On heparin Total time spent on evaluation and management of patient, reviewing chart and specialist notes, discussion with nursing and ancillary staff as well as documentation: 35 mins Charges/Coding Visit Charges Inpatient E&M: 08982 Subs Hosp L2
[2022-06-02] MEDS: Metoprolol Tartrate 25 MG Tablet PO (18:12)
[2022-06-02] MEDS: Mirtazapine 15 MG Tablet PO (20:02)
[2022-06-03] VITALS (11 sets, daily range): BP systolic 70–142; BP diastolic 48–71; PULSE 92–108; RESP 13–24; TEMP 35.7–36.6; O2SAT 93–100; BMI 35.3
[2022-06-03 00:46] LABS: Bedside Glucose 133 mg/dL (74-106)
[2022-06-03 01:46] LABS: Bedside Glucose 125 mg/dL (74-106)
[2022-06-03] MEDS: Heparin Injection (Vial) 5,000 UNIT/ML VIAL 5000 UNIT SC ×3 (04:17→22:48)
[2022-06-03] MEDS: Nystatin Powder 15gm Bottle 1 APPLIC TOPICAL ×3 (04:17→22:48)
[2022-06-03 07:00] LABS: Bedside Glucose 138 mg/dL (74-106)
[2022-06-03 08:38] LABS: Absolute Lymphocyte Count 1.32 X10^3/uL (0.83-4.51); Basophil# 0.04 X10^3/uL; Basophil% 0.5 % (0-1); Eosinophil# 0.23 X10^3/uL; Eosinophils% 2.9 % (0-5); Hemoglobin 10.7 g/dL (12.0-15.0); Lymphocyte # 1.32 X10^3/ul (0.83-4.51); Lymphocyte % 16.7 % (19-41); Mean Corp Hgb Conc 28.9 g/dL (32-36); Mean Corpuscular Hgb 29.7 pg (27.0-32.0); Mean Corpuscular Volume 102.8 fL (81-99); Mean Platelet Vol. 11.2 fl (6.2-12.0); Monocyte# 0.32 X10^3/uL; Monocyte% 4.1 % (0-10); NRBC Flagged by Analyzer 0 % (0-5); Neutrophil # 5.95 X10^3/uL (2.7-7.7); Neutrophil % 75.3 % (47-70); POSITIVE COUNT YES; POSITIVE MORPHOLOGY YES; Platelet Count 175 K/mm3 (150-450); RBC Distribution Width CV 17.7 % (11.6-14.6); RBC Distribution Width SD 67.7 fl (35.1-43.9); White Blood Count 7.9 K/mm3 (4.4-11.0)
[2022-06-03] MEDS: Metoprolol Tartrate 25 MG Tablet PO ×2 (08:47→22:48)
[2022-06-03] MEDS: Aspirin 81 MG TAB.CHEW PO (08:48)
[2022-06-03] MEDS: Amiodarone 200 MG Tablet PO ×2 (08:48→22:48)
[2022-06-03] MEDS: Paroxetine 20 MG Tablet PO (08:48)
[2022-06-03] MEDS: Senna/Docusate Sodium 1 Tablet 2 TABLET PO (08:48)
[2022-06-03] MEDS: Ferrous Sulfate 325 MG Tablet PO (08:48)
[2022-06-03] MEDS: Menthol/Lanolin/Calamine/Znox 113 GM Tube 1 APPLIC TOPICAL ×2 (08:49→22:47)
[2022-06-03 08:50] LABS: Anion Gap 2 (5-15); BUN 36 mg/dL (7-18); BUN/Creat Ratio 40.6 RATIO (10-20); Calcium,Total 9.5 mg/dL (8.5-10.1); Chloride 117 mmol/L (98-107); Creatinine, Serum 0.89 mg/dL (0.55-1.02); EST Glomerular Filtration Rate 68 mL/min (>60); Est Glom Filt Rate - Afr Amer 82 mL/min (>60); Estimated Creatinine Clearance 53.69 ml/min; Glucose 144 mg/dL (74-106); Potassium 4.5 mmol/L (3.5-5.1); Sodium Level 146 mmol/L (136-145)
[2022-06-03 09:40] LABS: Differential Indicated SCAN CRITERIA MET
[2022-06-03 09:41] LABS: Differential Comment SCANNED
[2022-06-03 09:42] LABS: Anisocytosis 2+; Macrocytosis 1+; Microcytosis 1+
--- NOTE | 2022-06-03 12:17 | PN_ITS ---
Subjective Subjective Patient seen and examined. She was a bit more alert today but says she felt weak.She remains confused. Unable to do review of systems. Reveiw of systems is otherwise negative. She still remains NPO as she keeps failing swallow evaluation. I asked her about PEG tube today and she said would want it. I am not sure how much she understands about it so I will speak to her family members to clarify. She still remains a bit tachycardic but she has otherwise remained hemodynamically stable. Objective Data Objective Data Vital Signs: Vital Signs Temp Pulse Resp BP Pulse Ox O2 Del Method O2 Flow Rate 97.7 F L 108 H 13 142/71 H 98 Nasal Cannula 6 06/03/22 08:41 06/03/22 08:47 06/03/22 08:41 06/03/22 08:47 06/03/22 08:41 06/03/22 08:41 06/03/22 08:41 FiO2 40 05/28/22 08:00 Oxygen Flow Rate (L/min) 6 Oxygen Delivery Method Nasal Cannula Weight: 212 lb 1.355 oz Body Mass Index (BMI) 35.3 Intake & Output: Intake and Output for Last 24 Hours 06/01/22 06/02/22 06/03/22 23:59 23:59 23:59 Intake Total 1362.10 / 1362.10 0 / 0 0 / 0 Output Total 600 / 600 425 / 425 100 / 100 Balance 762.10 / 762.10 -425 / -425 -100 / -100 Lab / Micro Data Result Diagrams: 06/03/22 08:10 06/03/22 08:10 Labs: Laboratory Results - last 24 hr 06/02/22 12:41: POC Glucose 121 H 06/02/22 18:10: POC Glucose 133 H 06/03/22 01:21: POC Glucose 125 H 06/03/22 06:35: POC Glucose 138 H 06/03/22 08:10: WBC 7.9, RBC 3.60 L, Hgb 10.7 L, Hct 37.0, MCV 102.8 H, MCH 29.7, MCHC 28.9 L, RDW Std Deviation 67.7 H, RDW Coeff of Magen 17.7 H, Plt Count 175, MPV 11.2, Immature Gran % (Auto) 0.500, Neut % (Auto) 75.3 H, Lymph % (Auto) 16.7 L, [place] % (Auto) 4.1, Eos % (Auto) 2.9, Baso % (Auto) 0.5, Absolute Neuts (auto) 6.0, Absolute Lymphs (auto) 1.32, Nucleated RBC % 0, Differential Comment SCANNED, Anisocytosis 2+, Microcytosis 1+, Macrocytosis 1+ 06/03/22 08:10: Sodium 146 H, Potassium 4.5, Chloride 117 H, Carbon Dioxide 27.0, Anion Gap 2 L, BUN 36 H, Creatinine 0.89, Estim Creat Clear Calc 53.69, Est GFR (MDRD) Af Amer 82, Est GFR (MDRD) Non-Af 68, BUN/Creatinine Ratio 40.6 H , Glucose 144 H, Calcium 9.5 Micro: Microbiology 05/28/22 11:30 Suture Gram Stain - Final 05/28/22 11:30 Suture Wound Culture - Final Vancomycin Resist. E. faecium Staphylococcus haemolyticus 05/24/22 06:35 Wound - Arm Left Gram Stain - Final 05/24/22 06:35 Wound - Arm Left Wound Culture - Final Pseudomonas aeruginosa Staphylococcus haemolyticus Staphylococcus epidermidis 05/24/22 06:35 Wound - Arm Left Anaerobic Culture - Final No anaerobic bacteria isolated. 05/19/22 14:30 Blood Culture (Wb) - Port Blood Culture - Final No growth in 5 days. 05/19/22 13:45 Blood Culture (Wb) - Port Blood Culture - Final No growth in 5 days. 05/20/22 17:40 Sputum, Induced/Lukens Gram Stain - Final 05/20/22 17:40 Sputum, Induced/Lukens Respiratory Culture - Final Escherichia coli 05/19/22 22:20 Transtracheal Aspirate Gram Stain - Final 05/19/22 22:20 Transtracheal Aspirate Respiratory Culture - Final Escherichia coli 05/20/22 04:25 Urine Catheter - Knight Urine Culture - Final Culture exhibits no growth. 05/20/22 04:25 Urine Catheter - Knight Legionella Antigen - Final 05/20/22 04:25 Urine Catheter - Knight Streptococcus pneumoniae Antigen (M - Final 05/19/22 22:20 Mucosa - Nasopharyngeal Respiratory Panel (PCR) - Final Rhythm Strip Rhythm Strip: A-fib Rate: 109 Ectopy: None Physical Exam Const alert Constitutional Narrative: Confused Orientation / Consciousness: lethargic HEENT normocephalic, head/scalp atraumatic and moist oral mucous membranes Eyes PERRL and EOMs intact bilaterally Neck no lymphadenopathy, supple and no JVD Lymph Lymphatic: no lymphadenopathy noted Resp Resp Narrative: Mildly diminished breath sounds bibasally. No wheezes or crackles. On 6 L of oxygen by nasal cannula. Cardio regular rhythm, S1 normal heart sound, S2 normal heart sound and no murmurs Cardio Narrative: persistently Tachycardic GI normal to inspection, nondistended, normoactive bowel sounds, soft to palpation, non-tender and non-distended Extremity normal capillary refill, no clubbing, cyanosis or edema and no calf tenderness Extremity Narrative: 2+ edema of both upper and lower extremities Skin Skin Narrative: left AKA, intact stump General Skin Exam: no breakdown Neuro CN's II-XII intact bilaterally, no focal motor deficits and deep tendon reflexes 2+ bilaterally Neuro Narrative: lethargic Motor Exam: strength 5/5 throughout Psych Psych Narrative: confused, lethargic Appearance: appropriate Assessment & Plan Assessment/Plan (1) Acute on chronic respiratory failure with hypoxia and hypercapnia: (2) Atrial fibrillation with rapid ventricular response: (3) Severe sepsis: PLAN: Plan #Acute hypoxic respiratory failure due to HFpEF and E coli pneumonia * on 6L of oxygen today * Completed a course of meropenem. On Lasix. * critical care on board * titrate oxygen to maintain sats >90% * breathing treatment with bronchodilators * #Septic shock due to ESBL E coli * ID on board * Completed a course of vancomycin and meropenem * now off vasopressors * ESBL cultures in tracheal aspirate * * #LUE wound infection * wound cultures grew Pseudomonas, gram-positive cocci possibly Enterococcus. * ID on board. Wound cultures also grew staph epidermidis and staph hem olyticus. * completed a course of meropenem * #Hypernatremia:sodium is 146 today. Continue D5W #Hypokalemia:resolved #MIKE on CKD: resolved. #Type 2 diabetes mellitus: On insulin sliding scale. 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 Intact dressing over stump. Will monitor #Hypothyroidism;on synthroid. TSH was elevated but this would likely not be very accurate in light of her acute illness. Will benefit from follow-up on outpatient basis. #CAD s/p stent: On aspirin and statin #A-fib: Still remains mildly tachycardic. Now on p.o. amiodarone. #Dysphagia: * has not been very compliant with speech therapy. Still NPO. He is failing swallow evaluation. * I did mention PEG tube to patient today and she is willing to have it but I am unsure if she fully understands what I admitted. * Will speak to patient's next of kin and family. DVT prophylaxis: On heparin Total time spent on evaluation and management of patient, reviewing chart and specialist notes, discussion with nursing and ancillary staff as well as documentation: 40 mins Charges/Coding Visit Charges Inpatient E&M: 26022 Subs Hosp L2
[2022-06-03 12:41] LABS: Bedside Glucose 137 mg/dL (74-106)
[2022-06-03 17:55] LABS: Bedside Glucose 143 mg/dL (74-106)
--- NOTE | 2022-06-03 17:55 | CON.PCM.GI_ITS ---
HPI Consult Data Date of Consult: 06/03/22 HPI Narrative Reason for Consultation: PEG tube placement HPI Narrative: SONA WILSON, is a 67-year-old female who presented to the emergency department via EMS on May 19 with altered mentation, edema and hypotension. The patient was just discharged from the hospital on May 10 with acute on chronic combined respiratory failure secondary to healthcare associated pneumonia and severe pulmonary hypertension.? The patient was noted at that time to have gram- negative bacteremia.? She was treated with antimicrobials. Sepsis was determined to be secondary to ESBL pneumonia with acute sepsis related organ dysfunction as evidenced by decompensated respiratory failure requiring intubation and invasive mechanical ventilatory support along with acute kidney injury.? The patient was able to be successfully extubated and is doing well from a respiratory perspective. The patient remains hemodynamically stable. Her course has also been complicated by dry gangrene of the left leg status post AKA. In our back in September 2021 for acute on chronic anemia. She underwent an upper endoscopy and was discovered to have bleeding ulcer in the gastric antrum. This was treated endoscopically she also underwent a colonoscopy which was a very poor prep. She had 1 polyp that was removed and diverticulosis was seen without any signs of acute or chronic GI bleeding. The patient had been admitted to the hospital earlier in April with atrial fibrillation/hyperkalemia, encephalopathy and dry gangrene of the left foot requiring AKA. She does have chronic hypoxemic respiratory failure, with a baseline oxygen requirement of 3 L/min at rest and 4 L/min with exertion.? In addition, she has chronic heart failure with preserved ejection fraction and has been maintained on Breo Ellipta on an outpatient basis. She has not been able to maintain good nutrition and I have been consulted for PEG tube placement. [facility] Medical History (Updated 05/27/22 @ 16:[address] Esdras Esparza MD) Acute cervical myofascial strain Acute on chronic respiratory failure with hypoxemia Acute on chronic respiratory failure with hypoxia and hypercapnia Acute respiratory failure with hypoxia Amputated toe of left foot Anemia Anemia Asthma Atherosclerotic heart disease of [place] coronary artery without angina pectoris Atrial fibrillation Atrial fibrillation Atrial fibrillation with rapid ventricular response CAD (coronary artery disease) CHF (congestive heart failure) Chronic congestive heart failure Chronic heart failure with preserved ejection fraction (HFpEF) Chronic heel ulcer Chronic kidney disease (CKD) stage G3b/A1, moderately decreased glomerular filtration rate (GFR) between 30-44 mL/min/1.73 square meter and albuminuria creatinine ratio less than 30 mg/g Chronic respiratory failure with hypoxia Chronic respiratory failure with hypoxia, on home oxygen therapy Chronic ulcer of great toe of left foot Closed head injury Congestive heart failure (CHF) COPD (chronic obstructive pulmonary disease) Current use of insulin Debility Decubitus ulcer of dorsum of foot, stage 2 Decubitus ulcer of left heel, stage 2 Decubitus ulcer of left heel, stage 3 Decubitus ulcer, heel, left, unstageable Depression Diabetes mellitus with diabetic polyneuropathy Diabetes type 2, controlled Diabetic foot ulcers Diverticulitis Dry gangrene Essential hypertension Former smoker History of amputation of left great toe History of non-ST elevation myocardial infarction (NSTEMI) (02/24/17) Hyperlipidemia Hypoglycemia due to type 1 diabetes mellitus Hypothyroid Morbid obesity Multiple wounds Myocardial infarct Non-rheumatic tricuspid valve insufficiency Nondisplaced fracture of distal phalanx of right great toe, initial encounter for closed fracture Nonrheumatic mitral (valve) insufficiency Obesity Obstructive sleep apnea On home O2 On mechanically assisted ventilation Renal insufficiency Secondary pulmonary arterial hypertension Thrombocytopenia Type 2 diabetes mellitus Vitamin D deficiency Home Medications aspirin 81 mg tablet,delayed release (Adult Aspirin Regimen) 81 mg PO DAILY HEART HEALTH 05/17/21 [History Last Taken 04/25/22 08:30] levothyroxine 100 mcg tablet (Synthroid) 125 mcg PO DAILY THYROID 12/13/21 [History Last Taken 04/26/22 06:00] montelukast 10 mg tablet 10 mg PO QHS ALLERGIES 12/13/21 [History Last Taken 04/25/22 20:58] sennosides 8.6 mg-docusate sodium 50 mg tablet (Senna-S) 1 tab PO BID STOOL SOFTNER 12/13/21 [History Last Taken 04/25/22 20:58] trazodone 100 mg tablet 150 mg PO QHS SLEEP 12/13/21 [History Last Taken 04/25/22 20:58] albuterol sulfate 90 mcg/actuation aerosol inhaler 2 puff inhalation Q6H PRN Shortness Of Breath 12/19/21 [History Last Taken Unknown] ferrous sulfate 325 mg (65 mg iron) tablet (FeroSul) 325 mg PO DAILY ANEMIA 12/28/21 [History Last Taken 04/25/22 11:00] insulin lispro 100 unit/mL subcutaneous pen (Humalog KwikPen (U-100) Insulin) 10 unit subcut TIDAC DIABETES 12/28/21 [History Last Taken 04/25/22 20:40] nystatin 100,000 unit/gram topical powder (Nyamyc) 1 applic topical TID IRRITATION 12/28/21 [History Last Taken 04/25/22 20:58] omeprazole 40 mg capsule,delayed release 40 mg PO BID GERD 12/28/21 [History Last Taken 04/25/22 20:58] polyethylene glycol 3350 17 gram oral powder packet 17 g PO DAILY CONSTIPATION 12/28/21 [History Last Taken 04/25/22 08:30] paroxetine HCl 20 mg tablet (Paxil) 20 mg PO DAILY MOOD 01/12/22 [History Last Taken 04/26/22 08:30] insulin detemir U-100 100 unit/mL (3 mL) subcutaneous pen (Levemir FlexTouch U- 100 Insulin) 25 unit (0.25 mL) subcut QHS blood sugar #15 mL 02/24/22 [Rx Last Taken 04/24/22 19:30] acetaminophen 325 mg tablet (Tylenol) 650 mg PO Q6H PRN PAIN/FEVER 04/26/22 [History Last Taken 04/26/22 06:00] apixaban 5 mg tablet (Eliquis) 5 mg PO BID BLOOD THINNER 04/26/22 [History Last Taken 04/26/22 08:30] arginine 7 gram-glutam 7 gram-CaHMB 1.5 [id number]-min oral pwd pkt (Say (with collagen)) 1 packet PO BID WOUND HEALING 04/26/22 [History Last Taken 04/25/22 11:00] gabapentin 300 mg capsule 300 mg PO TID NERVE PAIN 04/26/22 [History Last Taken 04/25/22 13:30] mirtazapine 15 mg tablet 15 mg PO QHS MOOD 04/26/22 [History Last Taken 04/25/22 20:58] potassium chloride 20 mEq tablet,extended release(part/cryst) (Klor-Con M) 20 meq PO TID SUPPLEMENT 04/26/22 [History Last Taken 04/26/22 06:00] bumetanide 0.5 mg tablet 1 mg PO TID #0 tabs 05/10/22 [Rx Last Taken Unknown] diltiazem HCl 60 mg tablet 60 mg PO Q6 #0 tabs 05/10/22 [Rx Last Taken Unknown] metoprolol tartrate 25 mg tablet 12.5 mg PO BID #0 tabs 05/10/22 [Rx Last Taken Unknown] Allergy/AdvReac Type Severity Reaction Status Date / Time doxycycline Allergy NEEDS Verified 05/19/22 11:06 FOLLOW-UP latex Allergy NEEDS Verified 05/19/22 11:06 FOLLOW-UP Sulfa (Sulfonamide Allergy Anaphylaxis Verified 05/19/22 11:06 Antibiotics) sulfur dioxide Allergy Anaphylaxis Verified 05/19/22 11:06 oxycodone AdvReac Other Verified 05/19/22 11:06 Family History Grandmother Diabetes Mother Heart disease Surgical History H/O right heart catheterization History of cataract surgery History of coronary artery stent placement (02/24/17) History of heart artery stent Tubal ligation status Social History household members: none housing: other details: [facility]. Smoking Status: Former smoker how long ago did patient quit smokin alcohol intake: former year quit: 1999 substance use type: does not use caffeine: Yes Type: carbonated beverages and tea ROS Review of Systems ROS Unobtainable: due to mental status Physical Exam Const alert Constitutional Narrative: Confused Orientation / Consciousness: lethargic HEENT normocephalic, head/scalp atraumatic and moist oral mucous membranes Eyes PERRL and EOMs intact bilaterally Neck no lymphadenopathy, supple and no JVD Lymph Lymphatic: no lymphadenopathy noted Resp Resp Narrative: Mildly diminished breath sounds bibasally. No wheezes or crackles. On 6 L of oxygen by nasal cannula. Cardio regular rhythm, S1 normal heart sound, S2 normal heart sound and no murmurs Cardio Narrative: persistently Tachycardic GI normal to inspection, nondistended, normoactive bowel sounds, soft to palpation, non-tender and non-distended Extremity normal capillary refill, no clubbing, cyanosis or edema and no calf tenderness Extremity Narrative: 2+ edema of both upper and lower extremities Skin Skin Narrative: left AKA, intact stump General Skin Exam: no breakdown Neuro CN's II-XII intact bilaterally, no focal motor deficits and deep tendon reflexes 2+ bilaterally Neuro Narrative: lethargic Motor Exam: strength 5/5 throughout Psych Psych Narrative: confused, lethargic Appearance: appropriate Lab / Micro Data Result Diagrams: 06/03/22 08:10 06/03/22 08:10 Labs: Laboratory Results - last 24 hr 06/02/22 18:10: POC Glucose 133 H 06/03/22 01:21: POC Glucose 125 H 06/03/22 06:35: POC Glucose 138 H 06/03/22 08:10: WBC 7.9, RBC 3.60 L, Hgb 10.7 L, Hct 37.0, MCV 102.8 H, MCH 29.7, MCHC 28.9 L, RDW Std Deviation 67.7 H, RDW Coeff of Magen 17.7 H, Plt Count 175, MPV 11.2, Immature Gran % (Auto) 0.500, Neut % (Auto) 75.3 H, Lymph % (Auto) 16.7 L, [place] % (Auto) 4.1, Eos % (Auto) 2.9, Baso % (Auto) 0.5, Absolute Neuts (auto) 6.0, Absolute Lymphs (auto) 1.32, Nucleated RBC % 0, Differential Comment SCANNED, Anisocytosis 2+, Microcytosis 1+, Macrocytosis 1+ 06/03/22 08:10: Sodium 146 H, Potassium 4.5, Chloride 117 H, Carbon Dioxide 27.0, Anion Gap 2 L, BUN 36 H, Creatinine 0.89, Estim Creat Clear Calc 53.69, Est GFR (MDRD) Af Amer 82, Est GFR (MDRD) Non-Af 68, BUN/Creatinine Ratio 40.6 H , Glucose 144 H, Calcium 9.5 06/03/22 11:54: POC Glucose 137 H 06/03/22 17:33: POC Glucose 143 H Rhythm Strip Rhythm Strip: A-fib Rate: 109 Ectopy: None Assessment & Plan Assessment/Plan (1) Acute on chronic respiratory failure with hypoxia and hypercapnia: (2) Atrial fibrillation with rapid ventricular response: (3) Severe sepsis: PLAN: Plan Patient did not do well with a swallowing test and is not able to maintain nutrition orally. Therefore I was consulted for alternative means of nutrition and medication administration. I think she does need a percutaneous endoscopic gastrostomy tube placement. I have not spoken with family regarding the PEG tube placement at this time. Recommend follow speech therapy recommendations at this time and this will likely be done on Sunday morning. Patient is already on antibiotics. Aspiration precautions. We will need to hold anticoagulation on the night of 06/04/2022 for procedure on 06/05/2022. Thank you very much for allow me to participate in care of this patient. Charges/Coding Visit Charges Inpatient E&M: 00411 Init Hosp L2
[2022-06-03] MEDS: Ipratropium 0.5 MG/2.5 ML SOLUTION INHALATION (19:03)
[2022-06-04] VITALS (37 sets, daily range): BP systolic 63–150; BP diastolic 42–85; PULSE 80–130; RESP 13–24; TEMP 34.7–36.5; O2SAT 83–99; BMI 34.2
[2022-06-04 00:06] LABS: Bedside Glucose 149 mg/dL (74-106)
[2022-06-04 00:06] LABS: Bedside Glucose 141 mg/dL (74-106)
--- NOTE | 2022-06-04 03:30 | CPS ---
Patient found multiple times taking Nasal cannula and pulse ox off.
[2022-06-04 05:38] LABS: Absolute Lymphocyte Count 1.32 X10^3/uL (0.83-4.51); Absolute Neutrophil Count 8.1 X10^3/uL (2.0-7.7); Basophil# 0.04 X10^3/uL; Basophil% 0.4 % (0-1); Eosinophil# 0.04 X10^3/uL; Eosinophils% 0.4 % (0-5); Hematocrit 37.9 % (37-47); Hemoglobin 10.8 g/dL (12.0-15.0); Lymphocyte # 1.32 X10^3/ul (0.83-4.51); Lymphocyte % 13.1 % (19-41); Mean Corp Hgb Conc 28.5 g/dL (32-36); Mean Corpuscular Hgb 29.8 pg (27.0-32.0); Mean Corpuscular Volume 104.7 fL (81-99); Mean Platelet Vol. 11.5 fl (6.2-12.0); Monocyte# 0.45 X10^3/uL; Monocyte% 4.5 % (0-10); NRBC Flagged by Analyzer 0.3 % (0-5); Neutrophil # 8.12 X10^3/uL (2.7-7.7); Neutrophil % 80.7 % (47-70); POSITIVE MORPHOLOGY YES; Platelet Count 232 K/mm3 (150-450); RBC Distribution Width CV 17.6 % (11.6-14.6); Red Blood Count 3.62 M/mm3 (4.2-5.4); White Blood Count 10.1 K/mm3 (4.4-11.0)
[2022-06-04] MEDS: Nystatin Powder 15gm Bottle 1 APPLIC TOPICAL ×3 (05:52→21:19)
[2022-06-04] MEDS: Heparin Injection (Vial) 5,000 UNIT/ML VIAL 5000 UNIT SC ×3 (06:00→21:19)
[2022-06-04 06:06] LABS: Differential Indicated SCAN CRITERIA MET
[2022-06-04 06:10] LABS: Anion Gap 6 (5-15); BUN 38 mg/dL (7-18); BUN/Creat Ratio 34.2 RATIO (10-20); Calcium,Total 9.3 mg/dL (8.5-10.1); Chloride 118 mmol/L (98-107); Creatinine, Serum 1.11 mg/dL (0.55-1.02); EST Glomerular Filtration Rate 52 mL/min (>60); Est Glom Filt Rate - Afr Amer 63 mL/min (>60); Estimated Creatinine Clearance 43.05 ml/min; Glucose 161 mg/dL (74-106); Potassium 4.2 mmol/L (3.5-5.1); Sodium Level 146 mmol/L (136-145)
[2022-06-04 06:39] LABS: Anisocytosis 1+; Macrocytosis 1+
[2022-06-04] MEDS: Ipratropium 0.5 MG/2.5 ML SOLUTION INHALATION (06:42)
[2022-06-04 06:45] LABS: Bedside Glucose 140 mg/dL (74-106)
--- NOTE | 2022-06-04 07:07 | NURSING ---
d/t pt vital signs family contacted at this time, voice message left to please return call. calls placed x3 to Chava Whaley and Clover Saha, patients children.
[2022-06-04] MEDS: Menthol/Lanolin/Calamine/Znox 113 GM Tube 1 APPLIC TOPICAL ×2 (08:57→21:19)
[2022-06-04] MEDS: 0.9% Normal Saline 1,000 ML 999 ML IV ×3 (08:57→13:05)
--- NOTE | 2022-06-04 10:35 | PN_ITS ---
Subjective Subjective Patient seen and examined. She remains lethargic. She is not very arousable today and just mumbles in response to questions. Review of systems is otherwise negative. Objective Data Objective Data Vital Signs: Vital Signs Temp Pulse Resp BP Pulse Ox O2 Del Method O2 Flow Rate 97.5 F L 86 19 H 79/53 L 94 Nasal Cannula 10 06/04/22 09:50 06/04/22 09:50 06/04/22 09:50 06/04/22 09:50 06/04/22 09:50 06/04/22 09:50 06/04/22 09:50 FiO2 40 05/28/22 08:00 Oxygen Flow Rate (L/min) 10 Oxygen Delivery Method Nasal Cannula Weight: 205 lb 11.06 oz Body Mass Index (BMI) 34.2 Intake & Output: Intake and Output for Last 24 Hours 06/02/22 06/03/22 06/04/22 23:59 23:59 23:59 Intake Total 0 / 0 0 / 0 1000 / 1000 Output Total 425 / 425 250 / 250 150 / 150 Balance -425 / -425 -250 / -250 850 / 850 Lab / Micro Data Result Diagrams: 06/04/22 05:05 06/04/22 05:05 Labs: Laboratory Results - last 24 hr 06/03/22 11:54: POC Glucose 137 H 06/03/22 17:33: POC Glucose 143 H 06/03/22 20:57: POC Glucose 149 H 06/03/22 23:40: POC Glucose 141 H 06/04/22 05:05: WBC 10.1, RBC 3.62 L, Hgb 10.8 L, Hct 37.9, MCV 104.7 H, MCH 29.8, MCHC 28.5 L, RDW Std Deviation 68.0 H, RDW Coeff of Magen 17.6 H, Plt Count 232, MPV 11.5, Immature Gran % (Auto) 0.900, Neut % (Auto) 80.7 H, Lymph % (Auto) 13.1 L, Barber % (Auto) 4.5, Eos % (Auto) 0.4, Baso % (Auto) 0.4, Absolute Neuts (auto) 8.1 H, Absolute Lymphs (auto) 1.32, Nucleated RBC % 0.3, Anisocytosis 1+, Macrocytosis 1+ 06/04/22 05:05: Sodium 146 H, Potassium 4.2, Chloride 118 H, Carbon Dioxide 22.0, Anion Gap 6, BUN 38 H, Creatinine 1.11 H, Estim Creat Clear Calc 43.05, Est GFR (MDRD) Af Amer 63, Est GFR (MDRD) Non-Af 52 L, BUN/Creatinine Ratio 34.2 H, Glucose 161 H, Calcium 9.3 06/04/22 05:51: POC Glucose 140 H Micro: Microbiology 05/28/22 11:30 Suture Gram Stain - Final 05/28/22 11:30 Suture Wound Culture - Final Vancomycin Resist. E. faecium Staphylococcus haemolyticus 05/24/22 06:35 Wound - Arm Left Gram Stain - Final 05/24/22 06:35 Wound - Arm Left Wound Culture - Final Pseudomonas aeruginosa Staphylococcus haemolyticus Staphylococcus epidermidis 05/24/22 06:35 Wound - Arm Left Anaerobic Culture - Final No anaerobic bacteria isolated. 05/19/22 14:30 Blood Culture (Wb) - Port Blood Culture - Final No growth in 5 days. 05/19/22 13:45 Blood Culture (Wb) - Port Blood Culture - Final No growth in 5 days. 05/20/22 17:40 Sputum, Induced/Lukens Gram Stain - Final 05/20/22 17:40 Sputum, Induced/Lukens Respiratory Culture - Final Escherichia coli 05/19/22 22:20 Transtracheal Aspirate Gram Stain - Final 05/19/22 22:20 Transtracheal Aspirate Respiratory Culture - Final Escherichia coli 05/20/22 04:25 Urine Catheter - Knight Urine Culture - Final Culture exhibits no growth. 05/20/22 04:25 Urine Catheter - Knight Legionella Antigen - Final 05/20/22 04:25 Urine Catheter - Knight Streptococcus pneumoniae Antigen (M - Final 05/19/22 22:20 Mucosa - Nasopharyngeal Respiratory Panel (PCR) - Final Rhythm Strip Rhythm Strip: A-fib Rate: 109 Ectopy: None Physical Exam Const Constitutional Narrative: Confused, lethargic Orientation / Consciousness: lethargic HEENT normocephalic, head/scalp atraumatic and moist oral mucous membranes Eyes PERRL and EOMs intact bilaterally Neck no lymphadenopathy, supple and no JVD Lymph Lymphatic: no lymphadenopathy noted Resp Resp Narrative: Mildly diminished breath sounds bibasally. No wheezes or crackles. Now on 10 L of oxygen by nasal cannula. Cardio regular rate, regular rhythm, S1 normal heart sound, S2 normal heart sound and no murmurs Cardio Narrative: persistently Tachycardic GI normal to inspection, nondistended, normoactive bowel sounds, soft to palpation, non-tender and non-distended Extremity normal capillary refill, no clubbing, cyanosis or edema and no calf tenderness Extremity Narrative: 2+ edema of both upper and lower extremities Skin Skin Narrative: left AKA, intact stump General Skin Exam: no breakdown Neuro CN's II-XII intact bilaterally, no focal motor deficits, no sensory deficits no ravi and deep tendon reflexes 2+ bilaterally Neuro Narrative: lethargic Motor Exam: strength 5/5 throughout Psych thought process normal Psych Narrative: confused, lethargic Appearance: appropriate Assessment & Plan Assessment/Plan (1) Acute on chronic respiratory failure with hypoxia and hypercapnia: (2) Atrial fibrillation with rapid ventricular response: (3) Severe sepsis: PLAN: Plan #Acute hypoxic respiratory failure due to HFpEF and E coli pneumonia * now up to 10L of oxygen today. * Completed a course of meropenem. On Lasix. * critical care on board * titrate oxygen to maintain sats >90% * breathing treatment with bronchodilators * get CXR and ABG * low threshold to transfer to ICU if her oxygen requirements increase * #Hypotension * Patient's blood pressure was running in the 80s systolic this morning. Metoprolol held and patient given a bolus of normal saline 1 L. * Her blood pressure is still running in the 70s systolic after the 1 L. We will give another bolus of 1 L and if she still not responding, will transfer to ICU for initiation of pressors. * Will consult critical care if she is transferred to ICU. She did require pressors admitted during her stay. * #Septic shock due to ESBL E coli * ID on board * Completed a course of vancomycin and meropenem * now off vasopressors * ESBL cultures in tracheal aspirate * * #LUE wound infection * wound cultures grew Pseudomonas, gram-positive cocci possibly Enterococcus. * ID on board. Wound cultures also grew staph epidermidis and staph hemolyticus. * completed a course of meropenem * #Hypernatremia:sodium remains 146 today. #Hypokalemia:resolved #MIKE on CKD: resolved. #Type 2 diabetes mellitus: On insulin sliding scale. 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 Intact dressing over stump. Will monitor #Hypothyroidism;on synthroid. TSH was elevated but this would likely not be yasmine y accurate in light of her acute illness. Will benefit from follow-up on outpatient basis. #CAD s/p stent: On aspirin and statin #A-fib: Still remains mildly tachycardic. Now on p.o. amiodarone. #Dysphagia: * has not been very compliant with speech therapy. Still NPO. She is failing swallow evaluation. * I did mention PEG tube to patient today and she is willing to have it but I am unsure if she fully understands what I admitted. * I spoke to patient's son about PEG tube yesterday; he wants to talk to his brother before deciding about PEG tube * will insert NG tube and initiate tube feeding today as patient has been NPO since admission in light of her repeated failure with swallow evaluation. * DVT prophylaxis: On heparin Total time spent on evaluation and management of patient, reviewing chart and specialist notes, discussion with nursing and ancillary staff as well as documentation: 48 mins Charges/Coding Visit Charges Inpatient E&M: 64803 Subs Hosp L3
--- NOTE | 2022-06-04 11:38 | RAD_ITS ---
INDICATION: Shortness of breath; nasogastric tube placement EXAMINATION/TECHNIQUE: X-RAY - XR Chest 1 View COMPARISON: May 28, 2022 chest x-ray. FINDINGS: Interval extubation. Interval right PICC line placement, tip in the distal SVC. Removal of the right internal jugular central line. Interval retraction of the nasogastric tube, tip within the stomach, proximal port above the diaphragmatic hiatus. Enlarged right pleural effusion with complete opacification of the right hemithorax. Increased left pleural effusion. No pneumothorax. Stable enlarged cardiac silhouette, pulmonary venous congestion. Unchanged appearance of the osseous structures. RAD/Chest 1 View (Portable) IMPRESSION: Interval extubation and placement of a right PICC line. Retraction of the endotracheal tube, consider advancement several centimeters. Increased pleural effusions and bilateral airspace opacities. Electronically Signed: Froy Phan MD at 12:38 EDT ,
[2022-06-04 12:20] LABS: Allen Test Positive; Base Excess -2 mmol/L (-2 to +2); Bicarbonate 28.8 mmol/L (22-26); Blood Gas Specimen Type ART; O2 Delivery Device Cannula; PO2 57 mmHG (75-100); SITE L Radial; SO2 71 % (95-99); Total Carbon Dioxide 32 mmol/L; pCO2 110.1 mmHg (35-45); pH 7.03 (7.35-7.45)
--- NOTE | 2022-06-04 12:35 | NURSING ---
This RN called report to CHRISTELLE Montenegro on ICU.
[2022-06-04] MEDS: Midazolam 2 MG/2 ML Syringe IV (13:00)
--- NOTE | 2022-06-04 13:03 | NURSING ---
ETT placed at 25 cm with positive color change, bilateral breath sounds per Dr. Esparza
--- NOTE | 2022-06-04 13:04 | RAD_ITS ---
INDICATION: Intubation, ETT PLACEMENT EXAMINATION/TECHNIQUE: X-RAY - XR Chest 1 View COMPARISON: June 04, 2022 chest x-ray, 1203 hours. FINDINGS: Interval intubation, tip of the endotracheal tube at the clavicular heads, approximately 4.67 m above the ousmane. Nasogastric tube advanced into the stomach, tip below the margins of the exam. Right PIC line unchanged. Improved aeration of the right upper and mid lung.] Left pleural effusions again seen. No pneumothorax. Remainder unchanged. RAD/Chest 1 View (Portable) IMPRESSION: Interval intubation, endotracheal tube tip above the ousmane. NGT advanced into the stomach. Improved aeration of the right lung. Electronically Signed: Froy Phan MD at 14:09 EDT ,
[2022-06-04] MEDS: Propofol 10MG/Ml 1,000 MG/100 ML Bottle 5.6 MG CONT INF (13:30)
--- NOTE | 2022-06-04 13:45 | NURSING ---
Existing tarango noted to have outside covering of core temp cable ripped off at time of arrival to ICU. New core temp tarango inserted.
[2022-06-04 14:05] LABS: Allen Test Positive; Base Excess -2 mmol/L (-2 to +2); Bicarbonate 24.4 mmol/L (22-26); Blood Gas Specimen Type ART; FI02 90; Mode AC; O2 Delivery Device Adult Vent; PEEP 8; PO2 237 mmHG (75-100); RR 20; SITE L Radial; SO2 100 % (95-99); Total Carbon Dioxide 26 mmol/L; Vt 450; pCO2 49.4 mmHg (35-45)
--- NOTE | 2022-06-04 14:23 | PCM.OP.PRO ---
Assessment & Plan Assessment/Plan (1) On mechanically assisted ventilation: (2) Acute on chronic respiratory failure with hypoxia and hypercapnia: PLAN: Plan Stabilize cardiovascular and respiratory status with mechanical ventilation, Levophed, fluids and sedation. Cultures, continue empiric antibiotic coverage Sputum cultures should be held for fungus. Patient had black adherent coating on her tongue that was suggestive of mucormycosis. Procedure Report Date of Procedure: 06/04/22 The patient on arrival to the ICU had an O2 saturation of 70% and hypotensive to the 60s systolic. She had emergent intubation, with 2 mg of Versed provided prior to the procedure. She did not require succinylcholine. Using a #3 blade and glide scope, the upper airway was examined after being bagged with 100% FiO2. Her airway was dry, with diffuse black adherent material and some whitish secretions that was suctioned clear. The vocal cords were identified and a 7.5 endotracheal tube was passed under glide scope vision through the cords without difficulty on the first try. The patient was bagged on 100% FiO2, and attached to the mechanical ventilator with settings of AC/VC mode, tidal volume 450 cc, rate 20, FiO2 100%, 8 PEEP. The initial arterial blood gas was 7.30, PCO2 49, PO2 737, saturation 99%. The endotracheal tube was placed 24 cm at the upper teeth/gums. The initial chest x-ray showed the tube was slightly high, so was advanced to 25 cm at the teeth. OG tube was also verified in good position, as was the right arm PICC with the tip Terminating in the superior vena cava. Procedures Hospitalists Procedures: 30030 Insert Emergency Airway
--- NOTE | 2022-06-04 15:04 | PCM.PROGNOTE ---
Subjective Subjective Patient was sent to the ICU in respiratory distress likely due to pneumonia. She had an NG tube placed. Objective Data Objective Data Vital Signs: Vital Signs Temp Pulse Resp BP Pulse Ox O2 Del Method O2 Flow Rate 94.4 F L 92 16 98/80 92 Mechanical Ventilator 10 06/04/22 14:00 06/04/22 14:00 06/04/22 14:00 06/04/22 14:45 06/04/22 14:00 06/04/22 14:00 06/04/22 12:19 FiO2 50 06/04/22 14:05 Oxygen Flow Rate (L/min) 10 Oxygen Delivery Method Mechanical Ventilator Weight: 205 lb 11.06 oz Body Mass Index (BMI) 34.2 Intake & Output: Intake and Output for Last 24 Hours 06/02/22 06/03/22 06/04/22 23:59 23:59 23:59 Intake Total 0 / 0 0 / 0 3027.32 / 3027.32 Output Total 425 / 425 250 / 250 150 / 150 Balance -425 / -425 -250 / -250 2877.32 / 2877.32 Lab / Micro Data Result Diagrams: 06/04/22 05:05 06/04/22 05:05 Labs: Laboratory Results - last 24 hr 06/03/22 17:33: POC Glucose 143 H 06/03/22 20:57: POC Glucose 149 H 06/03/22 23:40: POC Glucose 141 H 06/04/22 05:05: WBC 10.1, RBC 3.62 L, Hgb 10.8 L, Hct 37.9, MCV 104.7 H, MCH 29.8, MCHC 28.5 L, RDW Std Deviation 68.0 H, RDW Coeff of Magen 17.6 H, Plt Count 232, MPV 11.5, Immature Gran % (Auto) 0.900, Neut % (Auto) 80.7 H, Lymph % (Auto) 13.1 L, [place] % (Auto) 4.5, Eos % (Auto) 0.4, Baso % (Auto) 0.4, Absolute Neuts (auto) 8.1 H, Absolute Lymphs (auto) 1.32, Nucleated RBC % 0.3, Anisocytosis 1+, Macrocytosis 1+ 06/04/22 05:05: Sodium 146 H, Potassium 4.2, Chloride 118 H, Carbon Dioxide 22.0, Anion Gap 6, BUN 38 H, Creatinine 1.11 H, Estim Creat Clear Calc 43.05, Est GFR (MDRD) Af Amer 63, Est GFR (MDRD) Non-Af 52 L, BUN/Creatinine Ratio 34.2 H, Glucose 161 H, Calcium 9.3 06/04/22 05:51: POC Glucose 140 H Micro: Microbiology 05/28/22 11:30 Suture Gram Stain - Final 05/28/22 11:30 Suture Wound Culture - Final Vancomycin Resist. E. faecium Staphylococcus haemolyticus 05/24/22 06:35 Wound - Arm Left Gram Stain - Final 05/24/22 06:35 Wound - Arm Left Wound Culture - Final Pseudomonas aeruginosa Staphylococcus haemolyticus Staphylococcus epidermidis 05/24/22 06:35 Wound - Arm Left Anaerobic Culture - Final No anaerobic bacteria isolated. 05/19/22 14:30 Blood Culture (Wb) - Port Blood Culture - Final No growth in 5 days. 05/19/22 13:45 Blood Culture (Wb) - Port Blood Culture - Final No growth in 5 days. 05/20/22 17:40 Sputum, Induced/Lukens Gram Stain - Final 05/20/22 17:40 Sputum, Induced/Lukens Respiratory Culture - Final Escherichia coli 05/19/22 22:20 Transtracheal Aspirate Gram Stain - Final 05/19/22 22:20 Transtracheal Aspirate Respiratory Culture - Final Escherichia coli 05/20/22 04:25 Urine Catheter - Knight Urine Culture - Final Culture exhibits no growth. 05/20/22 04:25 Urine Catheter - Knight Legionella Antigen - Final 05/20/22 04:25 Urine Catheter - Knight Streptococcus pneumoniae Antigen (M - Final 05/19/22 22:20 Mucosa - Nasopharyngeal Respiratory Panel (PCR) - Final ABG Data ABG results: ABG 06/04/22 06/04/22 12:12 14:00 Specimen Type ART ART Sample Site L Radial L Radial pH 7.03 L* 7.30 L Bicarbonate Actual 28.8 H 24.4 Total CO2 32 26 Base Excess -2 -2 O2 Saturation 71 L 100 H O2 % 90 ABG pCO2 110.1 H* 49.4 H ABG pO2 57 L 237 H Hussain Test Positive Positive Respiration Rate 20 O2 Delivery Device Cannula Adult Vent Liter Flow 10.0 Vent Mode AC Tidal Volume 450 POC PEEP 8 Crit Call To/Read Back Yes Blood Gas Notified Whom koram Radiography Diagnostic Testing: Radiology Impression Chest X-Ray 06/04/22 11:38 IMPRESSION: Interval extubation and placement of a right PICC line. Retraction of the endotracheal tube, consider advancement several centimeters. Increased pleural effusions and bilateral airspace opacities. Electronically Signed: Froy Phan MD at 12:38 EDT , Chest X-Ray 06/04/22 13:04 IMPRESSION: Interval intubation, endotracheal tube tip above the ousmane. NGT advanced into the stomach. Improved aeration of the right lung. Electronically Signed: Froy Phan MD at 14:09 EDT , Rhythm Strip Rhythm Strip: A-fib Rate: 109 Ectopy: None Physical Exam Const Constitutional Narrative: Confused, lethargic Orientation / Consciousness: lethargic HEENT normocephalic, head/scalp atraumatic and moist oral mucous membranes Eyes PERRL and EOMs intact bilaterally Neck no lymphadenopathy, supple and no JVD Lymph Lymphatic: no lymphadenopathy noted Resp Resp Narrative: Mildly diminished breath sounds bibasally. No wheezes or crackles. Now on 10 L of oxygen by nasal cannula. Cardio regular rate, regular rhythm, S1 normal heart sound, S2 normal heart sound and no murmurs Cardio Narrative: persistently Tachycardic GI normal to inspection, nondistended, normoactive bowel sounds, soft to palpation, non-tender and non-distended Extremity normal capillary refill, no clubbing, cyanosis or edema and no calf tenderness Extremity Narrative: 2+ edema of both upper and lower extremities Skin Skin Narrative: left AKA, intact stump General Skin Exam: no breakdown Neuro CN's II-XII intact bilaterally, no focal motor deficits, no sensory deficits noted and deep tendon reflexes 2+ bilaterally Neuro Narrative: lethargic Motor Exam: strength 5/5 throughout Psych thought process normal Psych Narrative: confused, lethargic Appearance: appropriate Assessment & Plan Assessment/Plan (1) Acute on chronic respiratory failure with hypoxia and hypercapnia: (2) Atrial fibrillation with rapid ventricular response: (3) Severe sepsis: PLAN: Plan Patient did not do well with a swallowing test and is not able to maintain nutrition orally. Therefore I was consulted for alternative means of nutrition and medication administration. I think she does need a percutaneous endoscopic gastrostomy tube placement. I have not spoken with family regarding the PEG tube placement at this time. Currently she is intubated and sedated due to respiratory distress and PEG tube is on hold at this time. Charges/Coding Visit Charges Inpatient E&M: 39128 Subs Hosp L2
--- NOTE | 2022-06-04 16:08 | NURSING ---
Patient this morning more lethargic, not able to respond except to painful stimuli. Pressures were trending in the low 70s. This RN this morning (around 0950) gave 1st bolus of normal saline (1000ml) per MD order for BP of 74/46. After first bolus pressure was 79/53. Patient still lethargic and still not responding to verbal ques. MD ordered a second 1000ml bolus of normal saline (around 1105). Pressure after that was 72/42. Let MD know BP, MD called for transfer to ICU.
[2022-06-04 16:27] LABS: CPK Total, Creatine Kinase 30 U/L (26-192); Triglycerides 157 mg/dL
[2022-06-04 16:45] LABS: Bedside Glucose 122 mg/dL (74-106)
[2022-06-04] MEDS: Jevity 1.5 1,000 ML 15 ML GT (16:48)
[2022-06-04] MEDS: Juven (unflavored) Packet 1 PACKET GT (16:48)
[2022-06-04 17:25] LABS: Bedside Glucose 117 mg/dL (74-106)
--- NOTE | 2022-06-04 17:45 | PCM.PN.INT ---
Assessment & Plan Assessment/Plan (1) Toxic metabolic encephalopathy: PLAN: Chronic. Managed by primary - Expect worsened mental status after today's episode of hypoxemia. (2) Acute on chronic respiratory failure with hypoxia and hypercapnia: PLAN: Patient had recurrent respiratory failure in PCU today and had emergent transfer for back to ICU where she was intubated and ventilated again. Multiple risk factors including COPD, sleep apnea, pulmonary hypertension, atelectasis, obesity, and ESBL pneumonia. - Ventilator protocol started, satisfactory improvement in ABG after intubation. Propofol sedation - Cultures of blood, urine, sputum, and wound, hold for fungus - Support - Add antifungals, continue antibiotics, adjust as needed - Careful skin care to prevent further wounds. Routine ICU skin care, chlorhexidine. - SBT, lightening trials - She will once again need extubation to BiPAP due to known sleep apnea (3) Anemia: PLAN: Follow and treat as needed - Supplement iron, B12, folate. MCV is elevated. - Transfuse to hemoglobin greater than 8 due to CHF and pulmonary hypertension (4) Gram-negative bacteremia: PLAN: This patient had ESBL E. coli sepsis, right lung pneumonia, Pseudomonas left arm infection, treated with meropenem. Large R pleural effusion - Reculture today - tap effusion in AM. - There is concern for possible mucormycosis due to the black adherent exudate on the patient's tongue and posterior pharynx. She is in the risk category for this with previous meropenem, diabetes, steroids and general debility. - ID consult for antifungals PLAN: Plan 5. Chronic A-fib RVR - NG tube amiodarone 200 mg twice daily - Rate control with beta-skyler as needed Critical care time: 60 minutes, including bedside, chart review, documentation, interdisciplinary rounds, coordination of care with colleagues. Does not include procedures. Subjective Subjective Patient became obtunded on the floor and was transferred to the ICU where she was promptly intubated for respiratory failure, hypoxia and hypotension.. No history was available. Objective Data Objective Data Vital Signs: Vital Signs Temp Pulse Resp BP Pulse Ox O2 Del Method O2 Flow Rate 96.1 F L 111 H 22 H 86/51 L 93 Mechanical Ventilator 10 06/04/22 17:00 06/04/22 17:00 06/04/22 17:00 06/04/22 17:15 06/04/22 17:00 06/04/22 17:00 06/04/22 12:19 FiO2 50 06/04/22 17:00 Oxygen Flow Rate (L/min) 10 Oxygen Delivery Method Mechanical Ventilator on initial settings of tidal volume 450 cc, respiratory rate 20, PEEP 8, FiO2 90%: ABG 7.30, PCO2 49, PO2 237 7.5 mm ID endotracheal tube initially placed 24 cm at the upper teeth. Tube was advanced to 25 cm at the teeth, based on initial post intubation chest x-ray report Weight: 205 lb 11.06 oz Body Mass Index (BMI) 34.2 Intake & Output: Intake and Output for Last 24 Hours 06/02/22 06/03/22 06/04/22 23:59 23:59 23:59 Intake Total 0 / 0 0 / 0 3092.69 / 3092.69 Output Total 425 / 425 250 / 250 150 / 150 Balance -425 / -425 -250 / -250 2942.69 / 2942.69 Lab / Micro Data Result Diagrams: 06/04/22 05:05 06/04/22 05:05 Labs: Laboratory Results - last 24 hr 06/03/22 17:33: POC Glucose 143 H 06/03/22 20:57: POC Glucose 149 H 06/03/22 23:40: POC Glucose 141 H 06/04/22 05:05: WBC 10.1, RBC 3.62 L, Hgb 10.8 L, Hct 37.9, MCV 104.7 H, MCH 29.8, MCHC 28.5 L, RDW Std Deviation 68.0 H, RDW Coeff of Magen 17.6 H, Plt Count 232, MPV 11.5, Immature Gran % (Auto) 0.900, Neut % (Auto) 80.7 H, Lymph % (Auto) 13.1 L, [place] % (Auto) 4.5, Eos % (Auto) 0.4, Baso % (Auto) 0.4, Absolute Neuts (auto) 8.1 H, Absolute Lymphs (auto) 1.32, Nucleated RBC % 0.3, Anisocytosis 1+, Macrocytosis 1+ 06/04/22 05:05: Sodium 146 H, Potassium 4.2, Chloride 118 H, Carbon Dioxide 22.0, Anion Gap 6, BUN 38 H, Creatinine 1.11 H, Estim Creat Clear Calc 43.05, Est GFR (MDRD) Af Amer 63, Est GFR (MDRD) Non-Af 52 L, BUN/Creatinine Ratio 34.2 H, Glucose 161 H, Calcium 9.3 06/04/22 05:05: Total Creatine Kinase 30, Triglycerides 157 06/04/22 05:51: POC Glucose 140 H 06/04/22 12:24: POC Glucose 122 H 06/04/22 16:47: POC Glucose 117 H Micro: Microbiology 05/28/22 11:30 Suture Gram Stain - Final 05/28/22 11:30 Suture Wound Culture - Final Vancomycin Resist. E. faecium Staphylococcus haemolyticus 05/24/22 06:35 Wound - Arm Left Gram Stain - Final 05/24/22 06:35 Wound - Arm Left Wound Culture - Final Pseudomonas aeruginosa Staphylococcus haemolyticus Staphylococcus epidermidis 05/24/22 06:35 Wound - Arm Left Anaerobic Culture - Final No anaerobic bacteria isolated. 05/19/22 14:30 Blood Culture (Wb) - Port Blood Culture - Final No growth in 5 days. 05/19/22 13:45 Blood Culture (Wb) - Port Blood Culture - Final No growth in 5 days. 05/20/22 17:40 Sputum, Induced/Lukens Gram Stain - Final 05/20/22 17:40 Sputum, Induced/Lukens Respiratory Culture - Final Escherichia coli 05/19/22 22:20 Transtracheal Aspirate Gram Stain - Final 05/19/22 22:20 Transtracheal Aspirate Respiratory Culture - Final Escherichia coli 05/20/22 04:25 Urine Catheter - Knight Urine Culture - Final Culture exhibits no growth. 05/20/22 04:25 Urine Catheter - Knight Legionella Antigen - Final 05/20/22 04:25 Urine Catheter - Knight Streptococcus pneumoniae Antigen (M - Final 05/19/22 22:20 Mucosa - Nasopharyngeal Respiratory Panel (PCR) - Final ABG Data ABG results: ABG 06/04/22 06/04/22 12:12 14:00 Specimen Type ART ART Sample Site L Radial L Radial pH 7.03 L* 7.30 L Bicarbonate Actual 28.8 H 24.4 Total CO2 32 26 Base Excess -2 -2 O2 Saturation 71 L 100 H O2 % 90 ABG pCO2 110.1 H* 49.4 H ABG pO2 57 L 237 H Hussain Test Positive Positive Respiration Rate 20 O2 Delivery Device Cannula Adult Vent Liter Flow 10.0 Vent Mode AC Tidal Volume 450 POC PEEP 8 Crit Call To/Read Back Yes Blood Gas Notified Whom koram Interpretation: Acute respiratory acidosis, hyperoxia on supplemental O2 and PEEP on mechanical ventilation Radiography Diagnostic Testing: Radiology Impression Chest X-Ray 06/04/22 11:38 IMPRESSION: Interval extubation and placement of a right PICC line. Retraction of the endotracheal tube, consider advancement several centimeters. Increased pleural effusions and bilateral airspace opacities. Electronically Signed: Froy Phan MD at 12:38 EDT , Chest X-Ray 06/04/22 13:04 IMPRESSION: Interval intubation, endotracheal tube tip above the ousmane. NGT advanced into the stomach. Improved aeration of the right lung. Electronically Signed: Froy Phan MD at 14:09 EDT , Rhythm Strip Rhythm Strip: A-fib Rate: 109 Ectopy: None Physical Exam Narrative Obtunded woman, hypoventilating, hypoxic, hypotensive. HEENT extraocular's are rolling, not focused or tracking, anicteric. Mouth has a black crusty mucormycosis appearing exudate adherent to the tongue. No bleeding. Thick dry mucous on the upper mucous membranes. The vocal cords were visualized during intubation after suctioning and appeared normal and move normally. No obvious lesions, but dry irritated mucosa with adherent mucus and black exudate The lungs were diminished bilaterally especially on the right Abdomen is obese, nontender, decreased bowel sounds, no rebound, no organomegaly or mass Knight in place draining clear yellow urine Extremities have a left AKA stump that is draining in the lateral aspect without purulence, otherwise as previously described. Diffuse ecchymoses secondary to hospitalization, IV placements, critical care, turning etc. Neuro is diffusely weak, nonfocal. Skin is cool and dry. Diffusely edematous. PICC line in place right arm, infusing well.
[2022-06-04] MEDS: Propofol 10MG/Ml 1,000 MG/100 ML Bottle 16.8 MG CONT INF (19:06)
[2022-06-04] MEDS: Amiodarone 200 MG Tablet NG (21:19)
[2022-06-04] MEDS: Chlorhexidine 15 ML PO (22:28)
[2022-06-04] MEDS: 0.9% Saline Lock 10 ML Syringe IV (22:29)
[2022-06-05] VITALS (42 sets, daily range): BP systolic 84–120; BP diastolic 52–102; PULSE 92–133; RESP 9–28; TEMP 36–37.9; O2SAT 86–100; BMI 35.1
[2022-06-05] MEDS: Propofol 10MG/Ml 1,000 MG/100 ML Bottle 19.6 MG CONT INF (00:20)
[2022-06-05] MEDS: Ipratropium 0.5 MG/2.5 ML SOLUTION INHALATION ×4 (00:39→19:45)
[2022-06-05 00:56] LABS: Bedside Glucose 111 mg/dL (74-106)
[2022-06-05 03:41] LABS: Absolute Lymphocyte Count 1.22 X10^3/uL (0.83-4.51); Absolute Neutrophil Count 6.8 X10^3/uL (2.0-7.7); Basophil# 0.02 X10^3/uL; Basophil% 0.2 % (0-1); Eosinophil# 0.12 X10^3/uL; Eosinophils% 1.4 % (0-5); Hematocrit 30.9 % (37-47); Hemoglobin 9.1 g/dL (12.0-15.0); Lymphocyte # 1.22 X10^3/ul (0.83-4.51); Lymphocyte % 14.3 % (19-41); Mean Corp Hgb Conc 29.4 g/dL (32-36); Mean Corpuscular Hgb 29.5 pg (27.0-32.0); Mean Corpuscular Volume 100.3 fL (81-99); Monocyte# 0.33 X10^3/uL; Monocyte% 3.9 % (0-10); NRBC Flagged by Analyzer 0 % (0-5); Neutrophil # 6.79 X10^3/uL (2.7-7.7); Neutrophil % 79.8 % (47-70); POSITIVE MORPHOLOGY YES; Platelet Count 125 K/mm3 (150-450); RBC Distribution Width CV 17.5 % (11.6-14.6); RBC Distribution Width SD 65.3 fl (35.1-43.9); Red Blood Count 3.08 M/mm3 (4.2-5.4); White Blood Count 8.5 K/mm3 (4.4-11.0)
[2022-06-05 03:44] LABS: Differential Indicated SCAN CRITERIA MET
[2022-06-05 04:02] LABS: Anisocytosis 1+
[2022-06-05 04:11] LABS: Anion Gap 9 (5-15); BUN 39 mg/dL (7-18); BUN/Creat Ratio 32.5 RATIO (10-20); Calcium,Total 8.6 mg/dL (8.5-10.1); Chloride 119 mmol/L (98-107); EST Glomerular Filtration Rate 48 mL/min (>60); Est Glom Filt Rate - Afr Amer 58 mL/min (>60); Estimated Creatinine Clearance 39.82 ml/min; Glucose 136 mg/dL (74-106); Potassium 3.2 mmol/L (3.5-5.1); Sodium Level 149 mmol/L (136-145)
[2022-06-05] MEDS: 0.9% Saline Lock 10 ML Syringe IV (05:39)
[2022-06-05] MEDS: Heparin Injection (Vial) 5,000 UNIT/ML VIAL 5000 UNIT SC ×3 (05:40→20:19)
[2022-06-05] MEDS: Nystatin Powder 15gm Bottle 1 APPLIC TOPICAL ×3 (05:40→20:20)
[2022-06-05] MEDS: Levothyroxine 125 MCG Tablet GT (05:41)
[2022-06-05 06:15] LABS: Bedside Glucose 118 mg/dL (74-106)
[2022-06-05] MEDS: Propofol 10MG/Ml 1,000 MG/100 ML Bottle 8.4 MG CONT INF ×2 (06:58→16:52)
--- NOTE | 2022-06-05 07:14 | PCM.PN.HOSP ---
Reason for Visit Reason for Visit: Diagnoses Sepsis, unspecified organism (05/19/22) Anemia, unspecified (05/19/22) Thrombocytopenia, unspecified (05/19/22) Type 2 diabetes mellitus with foot ulcer (05/19/22) Other toxic encephalopathy (05/19/22) Encephalopathy, unspecified (05/19/22) Unspecified atrial fibrillation (05/19/22) Pneumonia, unspecified organism (05/19/22) Chronic obstructive pulmonary disease with (acute) exacerbation (05/19/22) Acute and chronic respiratory failure with hypoxia (05/19/22) Acute and chronic respiratory failure with hypercapnia (05/19/22) Non-pressure chronic ulcer of other part of unspecified foot with unspecified severity (05/19/22) Acute kidney failure, unspecified (05/19/22) Generalized edema (05/19/22) Severe sepsis without septic shock (05/19/22) Severe sepsis with septic shock (05/19/22) Bacteremia (05/19/22) Dependence on respirator [ventilator] status (05/19/22) Subjective Subjective Intubated and sedated, on fentanyl, propofol, Levophed of 1 but BP good at this time. Moving all extremities but did not wake up during exam. Objective Data Objective Data Vital Signs: Vital Signs Temp Pulse Resp BP Pulse Ox O2 Del Method O2 Flow Rate 98.4 F 102 H 20 H 107/58 L 94 Mechanical Ventilator 10 06/05/22 07:00 06/05/22 07:00 06/05/22 07:00 06/05/22 07:00 06/05/22 07:00 06/05/22 07:00 06/04/22 12:19 FiO2 40 06/05/22 07:00 Oxygen Flow Rate (L/min) 10 Oxygen Delivery Method Mechanical Ventilator Weight: 95.6 kg Body Mass Index (BMI) 35.1 Intake & Output: Intake and Output for Last 24 Hours 06/03/22 06/04/22 06/05/22 23:59 23:59 23:59 Intake Total 0 / 0 3562.18 / 3585.23 503.22 / 503.22 Output Total 250 / 250 225 / 225 90 / 90 Balance -250 / -250 3337.18 / 3360.23 413.22 / 413.22 Lab / Micro Data Result Diagrams: 06/05/22 03:36 06/05/22 03:36 Labs: Laboratory Results - last 24 hr 06/04/22 05:05: Total Creatine Kinase 30, Triglycerides 157 06/04/22 12:24: POC Glucose 122 H 06/04/22 16:47: POC Glucose 117 H 06/05/22 00:25: POC Glucose 111 H 06/05/22 03:36: WBC 8.5, RBC 3.08 L, Hgb 9.1 L, Hct 30.9 L, MCV 100.3 H, MCH 29.5, MCHC 29.4 L, RDW Std Deviation 65.3 H, RDW Coeff of Magen 17.5 H, Plt Count 125 L, MPV 10.0, Immature Gran % (Auto) 0.400, Neut % (Auto) 79.8 H, Lymph % (Auto) 14.3 L, [place] % (Auto) 3.9, Eos % (Auto) 1.4, Baso % (Auto) 0.2, Absolute Neuts (auto) 6.8, Absolute Lymphs (auto) 1.22, Nucleated RBC % 0, Anisocytosis 1+ 06/05/22 03:36: Sodium 149 H, Potassium 3.2 L, Chloride 119 H, Carbon Dioxide 21.0, Anion Gap 9, BUN 39 H, Creatinine 1.20 H, Estim Creat Clear Calc 39.82, Est GFR (MDRD) Af Amer 58 L, Est GFR (MDRD) Non-Af 48 L, BUN/Creatinine Ratio 32.5 H, Glucose 136 H, Calcium 8.6 06/05/22 05:50: POC Glucose 118 H Micro: Microbiology 05/28/22 11:30 Suture Gram Stain - Final 05/28/22 11:30 Suture Wound Culture - Final Vancomycin Resist. E. faecium Staphylococcus haemolyticus 05/24/22 06:35 Wound - Arm Left Gram Stain - Final 05/24/22 06:35 Wound - Arm Left Wound Culture - Final Pseudomonas aeruginosa Staphylococcus haemolyticus Staphylococcus epidermidis 05/24/22 06:35 Wound - Arm Left Anaerobic Culture - Final No anaerobic bacteria isolated. 05/19/22 14:30 Blood Culture (Wb) - Port Blood Culture - Final No growth in 5 days. 05/19/22 13:45 Blood Culture (Wb) - Port Blood Culture - Final No growth in 5 days. 05/20/22 17:40 Sputum, Induced/Lukens Gram Stain - Final 05/20/22 17:40 Sputum, Induced/Lukens Respiratory Culture - Final Escherichia coli 05/19/22 22:20 Transtracheal Aspirate Gram Stain - Final 05/19/22 22:20 Transtracheal Aspirate Respiratory Culture - Final Escherichia coli 05/20/22 04:25 Urine Catheter - Knight Urine Culture - Final Culture exhibits no growth. 05/20/22 04:25 Urine Catheter - Knight Legionella Antigen - Final 05/20/22 04:25 Urine Catheter - Knight Streptococcus pneumoniae Antigen (M - Final 05/19/22 22:20 Mucosa - Nasopharyngeal Respiratory Panel (PCR) - Final ABG Data ABG results: ABG 06/04/22 06/04/22 12:12 14:00 Specimen Type ART ART Sample Site L Radial L Radial pH 7.03 L* 7.30 L Bicarbonate Actual 28.8 H 24.4 Total CO2 32 26 Base Excess -2 -2 O2 Saturation 71 L 100 H O2 % 90 ABG pCO2 110.1 H* 49.4 H ABG pO2 57 L 237 H Hussain Test Positive Positive Respiration Rate 20 O2 Delivery Device Cannula Adult Vent Liter Flow 10.0 Vent Mode AC Tidal Volume 450 POC PEEP 8 Crit Call To/Read Back Yes Blood Gas Notified Whom koram Radiography Diagnostic Testing: Radiology Impression Chest X-Ray 06/04/22 11:38 IMPRESSION: Interval extubation and placement of a right PICC line. Retraction of the endotracheal tube, consider advancement several centimeters. Increased pleural effusions and bilateral airspace opacities. Electronically Signed: Froy Phan MD at 12:38 EDT , Chest X-Ray 06/04/22 13:04 IMPRESSION: Interval intubation, endotracheal tube tip above the ousmane. NGT advanced into the stomach. Improved aeration of the right lung. Electronically Signed: Froy Phan MD at 14:09 EDT , Rhythm Strip Rhythm Strip: A-fib Rate: 109 Ectopy: None Physical Exam Narrative General: Intubated HEENT: Atraumatic Eyes: Did not spontaneously open eyes during exam Neck: Supple Respiratory: Mechanically ventilated Cardiovascular: Regular rate GI: Soft, nondistended Extremities: Extremities wrapped Musculoskeletal: Moving all extremities Neuro: Unable to participate in neuro exam due to intubated and sedated Skin: Chronic right lower leg changes Psych: Unable to cooperate due to intubated and sedated Assessment & Plan Assessment/Plan (1) Toxic metabolic encephalopathy: (2) Acute on chronic respiratory failure with hypoxia and hypercapnia: (3) Anemia: (4) Gram-negative bacteremia: PLAN: Plan #Acute hypoxic respiratory failure due to HFpEF and E coli pneumonia -Had been intubated in the ICU in the beginning of her hospital stay but completed a course of meropenem and was started on Lasix and ultimately was able to be extubated and sent to the floor -Yesterday 06/04 she had increasing oxygen requirements and required reintubation -Remains intubated and sedated -Did have dysphagia prior to reintubation and PEG tube was recommended, will need to revisit this pending progress -Follow repeat cultures, ID reconsulted for eval -Vancomycin restarted -Remains on ipratropium nebs #Septic shock due to ESBL E. coli?resolved -ID has been following, completed vancomycin and meropenem courses -Had been off of vasopressors prior to intubation #Left upper extremity wound infection -Culture grew Pseudomonas and enteric coccus as well as Staph epidermidis and staph hemolyticus -Had been seen by infectious disease and completed meropenem course #Afib -On po amio and metoprolol #Chronic anemia -Monitor, transfuse for hgb <7 -Hemoglobin 9.1, overall fairly stable and no evidence of bleeding at this time #MIKE on CKD stage IIIb -Had resolved but creatinine slowly increasing again and is 1.20 today, enteral feeds on board -Hold IV diuresis, cannot rule out needing gentle hydration pending progress #Type 2 diabetes mellitus -Glucose checks and sliding scale insulin #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 Intact dressing over stump #Hx CAD s/p stent -asas and statin #Hypothyroidism -Continue Synthroid #DVT ppx: Heparin subcu Coco Romero MD Time spent in the patient's overall evaluation,decision-making process, review of diagnostic data, adjustment of management, discussion with other providers, nursing nursing and ancillary staff involved in patient's care documentation, 30 minutes Charges/Coding Visit Charges Inpatient E&M: 04320 Subs Hosp L2
[2022-06-05] MEDS: TITRATION PARAMETER CHANGE 1 EACH IV (08:10)
[2022-06-05] MEDS: Potassium Chloride Oral Soln 20 MEQ/15 ML UDC 40 MEQ PO (08:19)
[2022-06-05] MEDS: Menthol/Lanolin/Calamine/Znox 113 GM Tube 1 APPLIC TOPICAL ×2 (08:19→20:21)
[2022-06-05] MEDS: Juven (unflavored) Packet 1 PACKET GT ×2 (08:19→16:37)
[2022-06-05] MEDS: CHLORHEXIDINE GLUC 2% CLOTH 1 EACH TOWELETTE TOPICAL (08:20)
[2022-06-05] MEDS: Chlorhexidine 15 ML PO ×2 (08:20→20:20)
[2022-06-05] MEDS: Amiodarone 200 MG Tablet NG ×2 (08:21→20:19)
[2022-06-05] MEDS: Paroxetine 20 MG Tablet NG (08:22)
--- NOTE | 2022-06-05 09:57 | PCM.PN.INT ---
Assessment & Plan Assessment/Plan (1) Septic shock: PLAN: Plan RECOMMENDATIONS: 1. Continue assist-control mode mechanical ventilation. Wean FiO2 and PEEP to maintain saturations at or above 90%. 2. Multiple cultures obtained yesterday. Ask ID to reevaluate 3. Challenge with diuretics once blood pressure is more appropriate 4. Attempt to discontinue propofol 5. Continue appropriate ICU prophylaxis. 6. Ongoing goals of care discussion with the patient's family. IMPRESSIONS: 1. Septic shock Resolved. Patient does have a history of ESBL E. coli in this hospitalization. Patient has had some liquid bowel movements, but is not having any fever or leukocytosis. Patient did have some hypotension following intubation, but this appears to be improving. Pressures should be discontinued shortly. Cultures are currently pending. 2. Encephalopathy Currently sedated. Most likely related to acute CO2 retention. It is unclear as to whether the patient had access to a BiPAP at her nursing facility and whether or not it was being utilized. 3. Acute on chronic combined respiratory failure Patient did grow ESBL E. coli in her sputum indicating pneumonia on presentation as an etiology of her initial respiratory failure. Patient CO2 retention is much improved following intubation. Plan to continue scheduled bronchodilators over concerns for underlying obstructive lung disease. We will attempt gentle diuresis tomorrow if continues to improve. It does not appear the patient was using BiPAP with sleep after extubation. 4. Acute on chronic kidney disease Stable, but patient is developing hypernatremia and hyperchloremia. We will continue tube feeds with free water flushes. Most likely prerenal in etiology in the setting of #1. Creatinine has worsened recently, likely secondary to decreased perfusion with acidosis. We will plan to continue to monitor urine output for now. No current indication for renal replacement therapy. 5. 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 Continue to monitor H&H daily. Transfuse if hemoglobin drops below 7 g/dL. We will transfuse blood today. Continue PPI therapy as ordered. Sutures on AKA appear to be holding at this time despite anasarca. TIME: 45 minutes of critical care time, independent of procedures, was spent addressing the patient septic shock, encephalopathy, acute on chronic combined respiratory failure, acute on chronic kidney disease, review of all data and collaboration with the care team. Subjective Subjective Patient reportedly was found to taunted on the floor over the weekend and was intubated for respiratory failure with hypoxia and hypotension. Overnight, no acute issues have been reported outside of some increased gastric residuals. Patient will open her eyes to stimulus, but not following commands at this time. Since my last evaluation, patient was extubated for a brief period of time. Patient was noted to have hypercarbic respiratory failure on 06/04/2022 with a pH of 7.03 and a PCO2 of 110. Objective Data Objective Data Vital Signs: Vital Signs Temp Pulse Resp BP Pulse Ox O2 Del Method O2 Flow Rate 37.0 C 102 H 13 101/62 89 Mechanical Ventilator 10 06/05/22 09:00 06/05/22 09:00 06/05/22 09:00 06/05/22 09:00 06/05/22 09:00 06/05/22 09:00 06/04/22 12:19 FiO2 60 06/05/22 09:00 Oxygen Flow Rate (L/min) 10 Oxygen Delivery Method Mechanical Ventilator Weight: 95.6 kg Body Mass Index (BMI) 35.1 Intake & Output: Intake and Output for Last 24 Hours 06/03/22 06/04/22 06/05/22 23:59 23:59 23:59 Intake Total 0 / 0 3562.18 / 3585.23 767.02 / 767.02 Output Total 250 / 250 225 / 225 90 / 90 Balance -250 / -250 3337.18 / 3360.23 677.02 / 677.02 Lab / Micro Data Attestation: I reviewed the patient's lab results. Result Diagrams: 06/05/22 03:36 06/05/22 03:36 Labs: Laboratory Results - last 24 hr 06/04/22 05:05: Total Creatine Kinase 30, Triglycerides 157 06/04/22 12:24: POC Glucose 122 H 06/04/22 16:47: POC Glucose 117 H 06/05/22 00:25: POC Glucose 111 H 06/05/22 03:36: WBC 8.5, RBC 3.08 L, Hgb 9.1 L, Hct 30.9 L, MCV 100.3 H, MCH 29.5, MCHC 29.4 L, RDW Std Deviation 65.3 H, RDW Coeff of Magen 17.5 H, Plt Count 125 L, MPV 10.0, Immature Gran % (Auto) 0.400, Neut % (Auto) 79.8 H, Lymph % (Auto) 14.3 L, [place] % (Auto) 3.9, Eos % (Auto) 1.4, Baso % (Auto) 0.2, Absolute Neuts (auto) 6.8, Absolute Lymphs (auto) 1.22, Nucleated RBC % 0, Anisocytosis 1+ 06/05/22 03:36: Sodium 149 H, Potassium 3.2 L, Chloride 119 H, Carbon Dioxide 21.0, Anion Gap 9, BUN 39 H, Creatinine 1.20 H, Estim Creat Clear Calc 39.82, Est GFR (MDRD) Af Amer 58 L, Est GFR (MDRD) Non-Af 48 L, BUN/Creatinine Ratio 32.5 H, Glucose 136 H, Calcium 8.6 06/05/22 05:50: POC Glucose 118 H Micro: Microbiology 05/28/22 11:30 Suture Gram Stain - Final 05/28/22 11:30 Suture Wound Culture - Final Vancomycin Resist. E. faecium Staphylococcus haemolyticus 05/24/22 06:35 Wound - Arm Left Gram Stain - Final 05/24/22 06:35 Wound - Arm Left Wound Culture - Final Pseudomonas aeruginosa Staphylococcus haemolyticus Staphylococcus epidermidis 05/24/22 06:35 Wound - Arm Left Anaerobic Culture - Final No anaerobic bacteria isolated. 05/19/22 14:30 Blood Culture (Wb) - Port Blood Culture - Final No growth in 5 days. 05/19/22 13:45 Blood Culture (Wb) - Port Blood Culture - Final No growth in 5 days. 05/20/22 17:40 Sputum, Induced/Lukens Gram Stain - Final 05/20/22 17:40 Sputum, Induced/Lukens Respiratory Culture - Final Escherichia coli 05/19/22 22:20 Transtracheal Aspirate Gram Stain - Final 05/19/22 22:20 Transtracheal Aspirate Respiratory Culture - Final Escherichia coli 05/20/22 04:25 Urine Catheter - Knight Urine Culture - Final Culture exhibits no growth. 05/20/22 04:25 Urine Catheter - Knight Legionella Antigen - Final 05/20/22 04:25 Urine Catheter - Knight Streptococcus pneumoniae Antigen (M - Final 05/19/22 22:20 Mucosa - Nasopharyngeal Respiratory Panel (PCR) - Final ABG Data ABG results: ABG 06/04/22 06/04/22 12:12 14:00 Specimen Type ART ART Sample Site L Radial L Radial pH 7.03 L* 7.30 L Bicarbonate Actual 28.8 H 24.4 Total CO2 32 26 Base Excess -2 -2 O2 Saturation 71 L 100 H O2 % 90 ABG pCO2 110.1 H* 49.4 H ABG pO2 57 L 237 H Hussain Test Positive Positive Respiration Rate 20 O2 Delivery Device Cannula Adult Vent Liter Flow 10.0 Vent Mode AC Tidal Volume 450 POC PEEP 8 Crit Call To/Read Back Yes Blood Gas Notified Whom koram Attestation: I personally reviewed and interpreted this ABG as follows: (Significantly improved acute respiratory acidosis with partial compensation and increased AA gradient) Radiography Diagnostic Testing: Radiology Impression Chest X-Ray 06/04/22 11:38 IMPRESSION: Interval extubation and placement of a right PICC line. Retraction of the endotracheal tube, consider advancement several centimeters. Increased pleural effusions and bilateral airspace opacities. Electronically Signed: Froy Phan MD at 12:38 EDT , Chest X-Ray 06/04/22 13:04 IMPRESSION: Interval intubation, endotracheal tube tip above the ousmane. NGT advanced into the stomach. Improved aeration of the right lung. Electronically Signed: Froy Phan MD at 14:09 EDT , Rhythm Strip Rhythm Strip: A-fib Rate: 109 Ectopy: None Physical Exam Const Constitutional Narrative: Intubated, sedated and mechanically ventilated. No ventilator dyssynchrony. RASS -2. Anasarca. HEENT normocephalic and head/scalp atraumatic Eyes PERRL and conjunctivae normal Neck supple General: trachea midline and CVC in place Chest inspection of chest normal Resp Auscultation: diminished lung sounds; Negative for rales, rhonchi or wheezes Cardio regular rate, S1 normal heart sound, S2 normal heart sound, no murmurs, no rub and no gallops Rhythm: abnormal rhythm GI normal to inspection, nondistended, normoactive bowel sounds Extremity Extremity Narrative: Diffuse minor ecchymotic areas in IV sites Skin General Skin Exam: venous stasis and dermatitis Neuro moves all extremities and no focal motor deficits Sensorium / Orientation: sedated on vent Psych Mood & Affect: flat affect Charges/Coding Procedures Hospitalists Procedures: 48709 Critial Care 1st Hr
--- NOTE | 2022-06-05 10:35 | RAD_ITS ---
STUDY: X-RAY CHEST REASON FOR EXAM: Female, 67 years old. hypoxia TECHNIQUE: Single AP portable view of the chest. COMPARISON: 06/04/2022 FINDINGS: Stable appearance of the ET tube, NG tube, and right-sided PICC line. EKG leads overlie the chest. Lungs are expanded with significant overall improvement compared to the previous study. The previously noted right pleural effusion has significantly decreased since the previous study. Continued follow-up recommended to assure complete resolution. More conspicuous bibasilar atelectasis noted after decrease of the right pleural effusion. Normal size heart. Normal mediastinum and sol. Normal visualized pulmonary arteries. Normal visualized aortic arch and descending thoracic aorta. There are diffuse degenerative changes of the visualized thoracic spine. There is degenerative osteoarthritis of the bilateral shoulders. 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 There is no demonstrated abnormality of the visualized soft tissue structures of the upper abdomen. RAD/Chest 1 View (Portable) IMPRESSION: Overall improvement compared to the previous study with significant decrease of a previously noted right pleural effusion. Continued follow-up recommended to assure complete resolution. More conspicuous bibasilar atelectasis since the previous study likely due to the decreased pleural effusion. Follow-up recommended to assure resolution Stable appearance of the support lines and tubes Electronically Signed: Ken Marquez MD at 11:00 EDT ,
[2022-06-05 11:21] LABS: Bedside Glucose 127 mg/dL (74-106)
--- NOTE | 2022-06-05 12:56 | PCM.PN.ID ---
Physical Exam Narrative Intubated, sedated, started on levophed yesterday Const no apparent distress HEENT HEENT Narrative: ETT in place, tongue with some cartwright coating Resp Effort and Inspection: mechanically ventilated Cardio Rate: tachycardic GI soft to palpation, non-tender and non-distended Skin Skin Narrative: L AKA stump with some dehiscence, some redness, no drainage ID ID: Route of nutrition/ use of supplements: [] Nutritional Intake: [] IV Site: [] Knight Catheter: [] Assessment & Plan Assessment/Plan (1) Septic shock: PLAN: On vent and now weaned off pressor. Had been off abx. Will restart vanc for L AKA incision redness; wound cx with GPC on gram stain. Reported black/adherent plaques in pharynx during intubation. Per nursing, pt had been aggressively refusing oral care for a while. Now that she is intubated/sedated, mouth is doing better. Low suspicion for mucormycosis at this point, recommend cont to monitor. Will follow
--- NOTE | 2022-06-05 15:19 | WOUNDNOTE ---
wound photo: right heel
--- NOTE | 2022-06-05 15:20 | WOUNDNOTE ---
wound photo: left AC
--- NOTE | 2022-06-05 15:21 | WOUNDNOTE ---
wound photo: left AKA
--- NOTE | 2022-06-05 15:58 | PCM.RX.CS ---
Consult Pharmacy has been consulted to manage selected antiobiotic: Vancomycin Type of Consult: New start Suspected Infection: Skin/Soft tissue Prior Doses of Antibiotics Received/Current Regimen: 06/05/22 @ 1521 Labs: Sodium 149 mmol/L (136-145) H 06/05/22 03:36 Potassium 3.2 mmol/L (3.5-5.1) L 06/05/22 03:36 Chloride 119 mmol/L (98-107) H 06/05/22 03:36 Carbon Dioxide 21.0 mmol/L (21.0-32.0) 06/05/22 03:36 Anion Gap 9 (5-15) 06/05/22 03:36 BUN 39 mg/dL (7-18) H 06/05/22 03:36 Creatinine 1.20 mg/dL (0.55-1.02) H 06/05/22 03:36 Est GFR (MDRD) Af Amer 58 mL/min (>60) L 06/05/22 03:36 Est GFR (MDRD) Non-Af 48 mL/min (>60) L 06/05/22 03:36 BUN/Creatinine Ratio 32.5 RATIO (10-20) H 06/05/22 03:36 Glucose 136 mg/dL (74-106) H 06/05/22 03:36 Vancomycin Trough 25.6 ug/mL (5.0-15.0) H 05/29/22 14:00 Random Vancomycin 22.0 ug/mL (0.0-15.0) H 05/30/22 20:07 Microbiology: Microbiology 06/04/22 20:00 Urine Catheter - Catheter Urine Culture - Preliminary Culture exhibits no growth. 06/05/22 03:52 Wound - Leg, Left Gram Stain - Final 06/04/22 13:05 Sputum, Induced/Lukens Gram Stain - Final 05/28/22 11:30 Suture Gram Stain - Final 05/28/22 11:30 Suture Wound Culture - Final Vancomycin Resist. E. faecium Staphylococcus haemolyticus 05/24/22 06:35 Wound - Arm Left Gram Stain - Final 05/24/22 06:35 Wound - Arm Left Wound Culture - Final Pseudomonas aeruginosa Staphylococcus haemolyticus Staphylococcus epidermidis 05/24/22 06:35 Wound - Arm Left Anaerobic Culture - Final No anaerobic bacteria isolated. 05/19/22 14:30 Blood Culture (Wb) - Port Blood Culture - Final No growth in 5 days. 05/19/22 13:45 Blood Culture (Wb) - Port Blood Culture - Final No growth in 5 days. 05/20/22 17:40 Sputum, Induced/Lukens Gram Stain - Final 05/20/22 17:40 Sputum, Induced/Lukens Respiratory Culture - Final Escherichia coli 05/19/22 22:20 Transtracheal Aspirate Gram Stain - Final 05/19/22 22:20 Transtracheal Aspirate Respiratory Culture - Final Escherichia coli 05/20/22 04:25 Urine Catheter - Knight Urine Culture - Final Culture exhibits no growth. 05/20/22 04:25 Urine Catheter - Knight Legionella Antigen - Final 05/20/22 04:25 Urine Catheter - Knight Streptococcus pneumoniae Antigen (M - Final 05/19/22 22:20 Mucosa - Nasopharyngeal Respiratory Panel (PCR) - Final Weight used for dosin kg Estimated Creatinine Clearance: 52 Goal Trough: 15-20 mcg/mL Pharmacy Plan for Drug Dosin06/06/22 @ 0300 Start 1gm of Vancomycin every 12 hours. Pharmacy Service will continue to monitor and adjust dosing as required. Labs to be done on [date and time ordered]: 06/07/22 @ 0230
[2022-06-05] MEDS: Jevity 1.5 1,000 ML 45 ML GT (16:37)
[2022-06-05] MEDS: Insulin Lispro 100 UNIT/ML INSULN.PEN SC ×2 (16:40→23:34)
--- NOTE | 2022-06-05 16:46 | PN_ITS ---
Subjective Subjective Patient is still on the vent. She was noted to have some increase gastric residuals that were mostly bile in character. Objective Data Objective Data Vital Signs: Vital Signs Temp Pulse Resp BP Pulse Ox O2 Del Method O2 Flow Rate 99.8 F H 116 H 20 H 99/61 94 Mechanical Ventilator 10 06/05/22 15:00 06/05/22 16:08 06/05/22 16:08 06/05/22 15:00 06/05/22 16:08 06/05/22 16:00 06/04/22 12:19 FiO2 45 06/05/22 16:08 Oxygen Flow Rate (L/min) 10 Oxygen Delivery Method Mechanical Ventilator Weight: 210 lb 12.191 oz Body Mass Index (BMI) 35.1 Intake & Output: Intake and Output for Last 24 Hours 06/03/22 06/04/22 06/05/22 23:59 23:59 23:59 Intake Total 0 / 0 3562.18 / 3585.23 1925.10 / 1925.10 Output Total 250 / 250 225 / 225 240 / 240 Balance -250 / -250 3337.18 / 3360.23 1685.10 / 1685.10 Lab / Micro Data Result Diagrams: 06/05/22 03:36 06/05/22 03:36 Labs: Laboratory Results - last 24 hr 06/04/22 16:47: POC Glucose 117 H 06/05/22 00:25: POC Glucose 111 H 06/05/22 03:36: WBC 8.5, RBC 3.08 L, Hgb 9.1 L, Hct 30.9 L, MCV 100.3 H, MCH 29.5, MCHC 29.4 L, RDW Std Deviation 65.3 H, RDW Coeff of Magen 17.5 H, Plt Count 125 L, MPV 10.0, Immature Gran % (Auto) 0.400, Neut % (Auto) 79.8 H, Lymph % (Auto) 14.3 L, [place] % (Auto) 3.9, Eos % (Auto) 1.4, Baso % (Auto) 0.2, Absolute Neuts (auto) 6.8, Absolute Lymphs (auto) 1.22, Nucleated RBC % 0, Anisocytosis 1+ 06/05/22 03:36: Sodium 149 H, Potassium 3.2 L, Chloride 119 H, Carbon Dioxide 21.0, Anion Gap 9, BUN 39 H, Creatinine 1.20 H, Estim Creat Clear Calc 39.82, Est GFR (MDRD) Af Amer 58 L, Est GFR (MDRD) Non-Af 48 L, BUN/Creatinine Ratio 32.5 H, Glucose 136 H, Calcium 8.6 06/05/22 05:50: POC Glucose 118 H 06/05/22 10:48: POC Glucose 127 H Micro: Microbiology 06/04/22 20:00 Urine Catheter - Catheter Urine Culture - Preliminary Culture exhibits no growth. 06/05/22 03:52 Wound - Leg, Left Gram Stain - Final 06/04/22 13:05 Sputum, Induced/Lukens Gram Stain - Final 05/28/22 11:30 Suture Gram Stain - Final 05/28/22 11:30 Suture Wound Culture - Final Vancomycin Resist. E. faecium Staphylococcus haemolyticus 05/24/22 06:35 Wound - Arm Left Gram Stain - Final 05/24/22 06:35 Wound - Arm Left Wound Culture - Final Pseudomonas aeruginosa Staphylococcus haemolyticus Staphylococcus epidermidis 05/24/22 06:35 Wound - Arm Left Anaerobic Culture - Final No anaerobic bacteria isolated. 05/19/22 14:30 Blood Culture (Wb) - Port Blood Culture - Final No growth in 5 days. 05/19/22 13:45 Blood Culture (Wb) - Port Blood Culture - Final No growth in 5 days. 05/20/22 17:40 Sputum, Induced/Lukens Gram Stain - Final 05/20/22 17:40 Sputum, Induced/Lukens Respiratory Culture - Final Escherichia coli 05/19/22 22:20 Transtracheal Aspirate Gram Stain - Final 05/19/22 22:20 Transtracheal Aspirate Respiratory Culture - Final Escherichia coli 05/20/22 04:25 Urine Catheter - Knight Urine Culture - Final Culture exhibits no growth. 05/20/22 04:25 Urine Catheter - Knight Legionella Antigen - Final 05/20/22 04:25 Urine Catheter - Knight Streptococcus pneumoniae Antigen (M - Final 05/19/22 22:20 Mucosa - Nasopharyngeal Respiratory Panel (PCR) - Final Radiography Diagnostic Testing: Radiology Impression Chest X-Ray 06/05/22 10:35 IMPRESSION: Overall improvement compared to the previous study with significant decrease of a previously noted right pleural effusion. Continued follow-up recommended to assure complete resolution. More conspicuous bibasilar atelectasis since the previous study likely due to the decreased pleural effusion. Follow-up recommended to assure resolution Stable appearance of the support lines and tubes Electronically Signed: Ken Marquez MD at 11:00 EDT , Rhythm Strip Rhythm Strip: A-fib Rate: 109 Ectopy: None Physical Exam Narrative Intubated, sedated Const no apparent distress HEENT HEENT Narrative: ETT in place, tongue with some cartwright coating Resp Effort and Inspection: mechanically ventilated Cardio Rate: tachycardic GI soft to palpation, non-tender and non-distended Skin Skin Narrative: L AKA stump with some dehiscence, some redness, no drainage Assessment & Plan Assessment/Plan (1) Toxic metabolic encephalopathy: PLAN: Secondary to sepsis. Patient is intubated and sedated. (2) Acute on chronic respiratory failure with hypoxia and hypercapnia: PLAN: Patient had recurrent respiratory failure in PCU today and had emergent transfer for back to ICU where she was intubated and ventilated again. She has had multiple episodes of respiratory failure. I am not sure if there is any signs or symptoms of aspiration. She has multiple risk factors including COPD, sleep apnea, pulmonary hypertension, atelectasis, obesity, and ESBL pneumonia. (3) Anemia: PLAN: Follow and treat as needed - Supplement iron, B12, folate. MCV is elevated. There is not any signs of cirrhosis on previous examinations. However when her increased MCV and transient low platelet count this might have to be examined further. - Transfuse to hemoglobin greater than 8 due to CHF and pulmonary hypertension (4) Gram-negative bacteremia: PLAN: ESBL E. coli sepsis, right lung pneumonia, Pseudomonas left arm infection, treated with meropenem. Infectious disease recommends meropenem. (5) Atrial fibrillation with rapid ventricular response: (6) Severe sepsis: PLAN: Plan Patient will likely need percutaneous endoscopic gastrostomy tube placed in the future. I will discuss with primary team when is a viable time in order to place the PEG tube. Charges/Coding Visit Charges Inpatient E&M: 14080 [facility] Hosp L3
[2022-06-05 17:05] LABS: Bedside Glucose 181 mg/dL (74-106)
--- NOTE | 2022-06-05 23:20 | NURSING ---
Unable to waste fentanyl bag in accudose. Verified w/ L. CHRISTELLE Suarez and wasted 1 ml of fentanyl in the rx destroyer.
[2022-06-05 23:55] LABS: Bedside Glucose 179 mg/dL (74-106)
[2022-06-06] VITALS (34 sets, daily range): BP systolic 82–128; BP diastolic 56–88; PULSE 102–131; RESP 6–21; TEMP 37.7–37.8; O2SAT 90–99; BMI 35.5
[2022-06-06] MEDS: Ipratropium 0.5 MG/2.5 ML SOLUTION INHALATION ×4 (01:25→19:11)
[2022-06-06] MEDS: 0.9% Saline Lock 10 ML Syringe IV (03:38)
[2022-06-06] MEDS: Vancomycin IV 1,000 MG/200 ML BAG 200 MG IV ×2 (03:38→13:33)
[2022-06-06] MEDS: Propofol 10MG/Ml 1,000 MG/100 ML Bottle 8.4 MG CONT INF ×2 (03:45→13:32)
[2022-06-06 03:49] LABS: Absolute Lymphocyte Count 0.94 X10^3/uL (0.83-4.51); Absolute Neutrophil Count 4.5 X10^3/uL (2.0-7.7); Basophil# 0.02 X10^3/uL; Basophil% 0.3 % (0-1); Eosinophil# 0.15 X10^3/uL; Eosinophils% 2.5 % (0-5); Hematocrit 26.4 % (37-47); Lymphocyte # 0.94 X10^3/ul (0.83-4.51); Lymphocyte % 15.7 % (19-41); Mean Corp Hgb Conc 30.3 g/dL (32-36); Mean Corpuscular Hgb 29.4 pg (27.0-32.0); Mean Corpuscular Volume 97.1 fL (81-99); Mean Platelet Vol. 11.6 fl (6.2-12.0); Monocyte# 0.35 X10^3/uL; Monocyte% 5.9 % (0-10); NRBC Flagged by Analyzer 0 % (0-5); Neutrophil # 4.48 X10^3/uL (2.7-7.7); Neutrophil % 75.1 % (47-70); POSITIVE COUNT YES; Platelet Count 89 K/mm3 (150-450); RBC Distribution Width CV 17.6 % (11.6-14.6); RBC Distribution Width SD 62.5 fl (35.1-43.9); Red Blood Count 2.72 M/mm3 (4.2-5.4)
[2022-06-06 03:59] LABS: Differential Indicated SCAN CRITERIA MET
[2022-06-06 04:23] LABS: Platelet Estimate MOD DEC (ADEQ)
[2022-06-06 04:34] LABS: Anion Gap 3 (5-15); BUN 49 mg/dL (7-18); BUN/Creat Ratio 32.9 RATIO (10-20); Calcium,Total 8.2 mg/dL (8.5-10.1); Chloride 121 mmol/L (98-107); Creatinine, Serum 1.49 mg/dL (0.55-1.02); EST Glomerular Filtration Rate 37 mL/min (>60); Est Glom Filt Rate - Afr Amer 45 mL/min (>60); Estimated Creatinine Clearance 32.07 ml/min; Glucose 243 mg/dL (74-106); Potassium 3.3 mmol/L (3.5-5.1); Sodium Level 150 mmol/L (136-145)
[2022-06-06] MEDS: Levothyroxine 125 MCG Tablet GT (05:13)
[2022-06-06] MEDS: Nystatin Powder 15gm Bottle 1 APPLIC TOPICAL ×3 (05:13→22:50)
[2022-06-06] MEDS: Insulin Lispro 100 UNIT/ML INSULN.PEN SC ×3 (05:14→17:09)
[2022-06-06] MEDS: CHLORHEXIDINE GLUC 2% CLOTH 1 EACH TOWELETTE TOPICAL (05:14)
[2022-06-06] MEDS: Heparin Injection (Vial) 5,000 UNIT/ML VIAL 5000 UNIT SC ×2 (05:17→13:52)
[2022-06-06 05:36] LABS: Bedside Glucose 235 mg/dL (74-106)
[2022-06-06] MEDS: Potassium Chloride 20mEq/100mL 20 MEQ/100 ML IV.SOLN. 100 MEQ IV BOLUS ×2 (06:35→07:51)
[2022-06-06] MEDS: Aspirin 81 MG TAB.CHEW NG (07:52)
[2022-06-06] MEDS: Menthol/Lanolin/Calamine/Znox 113 GM Tube 1 APPLIC TOPICAL ×2 (07:52→22:50)
[2022-06-06] MEDS: Chlorhexidine 15 ML PO ×2 (07:52→22:49)
[2022-06-06] MEDS: Juven (unflavored) Packet 1 PACKET GT ×2 (07:52→17:09)
[2022-06-06] MEDS: Paroxetine 20 MG Tablet NG (07:53)
[2022-06-06] MEDS: Amiodarone 200 MG Tablet NG ×2 (07:53→22:48)
--- NOTE | 2022-06-06 08:05 | PN.CC_ITS ---
Assessment & Plan Assessment/Plan (1) Septic shock: PLAN: Plan RECOMMENDATIONS: 1. Continue assist-control mode mechanical ventilation. Wean FiO2 and PEEP to maintain saturations at or above 90%. 2. Appreciate ID input 3. Challenge with diuretics once blood pressure is more appropriate 4. Attempt to discontinue propofol 5. Continue appropriate ICU prophylaxis. 6. Ongoing goals of care discussion with the patient's family. 7. Potentially prepare for trach and PEG if family wishes to remain aggressive IMPRESSIONS: 1. Septic shock Resolved. Patient does have a history of ESBL E. coli in this hospitalization. Patient has had some liquid bowel movements, but is not having any fever or leukocytosis. Patient did have some hypotension following intubation, but this appears to be resolved. ID is following and cultures are currently pending. 2. Encephalopathy Currently sedated. Most likely related to acute CO2 retention. It is unclear as to whether the patient had access to a BiPAP at her nursing facility and whether or not it was being utilized. Patient continues to fail to use BiPAP following extubation. Failure to use BiPAP will likely lead to recurrent metabolic encephalopathy secondary to elevated CO2 levels. 3. Acute on chronic combined respiratory failure Patient did grow ESBL E. coli in her sputum indicating pneumonia on presentation as an etiology of her initial respiratory failure. Patient CO2 retention is much improved following intubation. Plan to continue scheduled bronchodilators over concerns for underlying obstructive lung disease. We will attempt gentle diuresis tomorrow if renal function improves. It does not appear the patient was using BiPAP with sleep after extubation. 4. Acute on chronic kidney disease Stable, but patient is developing hypernatremia and hyperchloremia. We will continue tube feeds with free water flushes. Most likely prerenal in etiology in the setting of #1. Creatinine has worsened recently, likely secondary to decreased perfusion with acidosis. We will plan to continue to monitor urine output for now. No current indication for renal replacement therapy. 5. 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 Continue to monitor H&H daily. Transfuse if hemoglobin drops below 7 g/dL. We will transfuse blood today. Continue PPI therapy as ordered. Sutures on AKA appear to be holding at this time despite anasarca. We will attempt to arrange for a family meeting to discuss goals of care TIME: 39 minutes of critical care time, independent of procedures, was spent addressing the patient septic shock, encephalopathy, acute on chronic combined respiratory failure, acute on chronic kidney disease, review of all data and collaboration with the care team. Subjective Subjective Patient did okay overnight. Patient has had some increased residuals noted. Patient did have tachycardia associated with an SAT. Patient has been taken off of Levophed. Objective Data Objective Data Vital Signs: Vital Signs Temp Pulse Resp BP Pulse Ox O2 Del Method O2 Flow Rate 37.7 C H 117 H 20 H 104/78 97 Mechanical Ventilator 10 06/06/22 05:00 06/06/22 07:37 06/06/22 07:37 06/06/22 07:00 06/06/22 07:33 06/06/22 07:00 06/04/22 12:19 FiO2 40 06/06/22 07:33 Oxygen Flow Rate (L/min) 10 Oxygen Delivery Method Mechanical Ventilator Weight: 96.8 kg Body Mass Index (BMI) 35.5 Intake & Output: Intake and Output for Last 24 Hours 06/04/22 06/05/22 06/06/22 23:59 23:59 23:59 Intake Total 3562.18 / 3585.23 3127.05 / 3139.20 943.07 / 943.07 Output Total 225 / 225 390 / 390 200 / 200 Balance 3337.18 / 3360.23 2737.05 / 2749.20 743.07 / 743.07 Lab / Micro Data Attestation: I reviewed the patient's lab results. Result Diagrams: 06/06/22 03:37 06/06/22 03:37 Labs: Laboratory Results - last 24 hr 06/05/22 10:48: POC Glucose 127 H 06/05/22 16:39: POC Glucose 181 H 06/05/22 23:33: POC Glucose 179 H 06/06/22 03:37: WBC 6.0, RBC 2.72 L, Hgb 8.0 L, Hct 26.4 L, MCV 97.1, MCH 29.4, MCHC 30.3 L, RDW Std Deviation 62.5 H, RDW Coeff of Magen 17.6 H, Plt Count 89 L, MPV 11.6, Immature Gran % (Auto) 0.500, Neut % (Auto) 75.1 H, Lymph % (Auto) 15.7 L, [place] % (Auto) 5.9, Eos % (Auto) 2.5, Baso % (Auto) 0.3, Absolute Neuts (auto) 4.5, Absolute Lymphs (auto) 0.94, Nucleated RBC % 0, Platelet Estimate MOD DEC 06/06/22 03:37: Sodium 150 H, Potassium 3.3 L, Chloride 121 H, Carbon Dioxide 26.0, Anion Gap 3 L, BUN 49 H, Creatinine 1.49 H, Estim Creat Clear Calc 32.07, Est GFR (MDRD) Af Amer 45 L, Est GFR (MDRD) Non-Af 37 L, BUN/Creatinine Ratio 32.9 H, Glucose 243 H, Calcium 8.2 L 06/06/22 05:12: POC Glucose 235 H Micro: Microbiology 06/04/22 20:00 Urine Catheter - Catheter Urine Culture - Preliminary Culture exhibits no growth. 06/05/22 03:52 Wound - Leg, Left Gram Stain - Final 06/04/22 13:05 Sputum, Induced/Lukens Gram Stain - Final 05/28/22 11:30 Suture Gram Stain - Final 05/28/22 11:30 Suture Wound Culture - Final Vancomycin Resist. E. faecium Staphylococcus haemolyticus 05/24/22 06:35 Wound - Arm Left Gram Stain - Final 05/24/22 06:35 Wound - Arm Left Wound Culture - Final Pseudomonas aeruginosa Staphylococcus haemolyticus Staphylococcus epidermidis 05/24/22 06:35 Wound - Arm Left Anaerobic Culture - Final No anaerobic bacteria isolated. 05/19/22 14:30 Blood Culture (Wb) - Port Blood Culture - Final No growth in 5 days. 05/19/22 13:45 Blood Culture (Wb) - Port Blood Culture - Final No growth in 5 days. 05/20/22 17:40 Sputum, Induced/Lukens Gram Stain - Final 05/20/22 17:40 Sputum, Induced/Lukens Respiratory Culture - Final Escherichia coli 05/19/22 22:20 Transtracheal Aspirate Gram Stain - Final 05/19/22 22:20 Transtracheal Aspirate Respiratory Culture - Final Escherichia coli 05/20/22 04:25 Urine Catheter - Knight Urine Culture - Final Culture exhibits no growth. 05/20/22 04:25 Urine Catheter - Knight Legionella Antigen - Final 05/20/22 04:25 Urine Catheter - Knight Streptococcus pneumoniae Antigen (M - Final 05/19/22 22:20 Mucosa - Nasopharyngeal Respiratory Panel (PCR) - Final Radiography Diagnostic Testing: Radiology Impression Chest X-Ray 06/05/22 10:35 IMPRESSION: Overall improvement compared to the previous study with significant decrease of a previously noted right pleural effusion. Continued follow-up recommended to assure complete resolution. More conspicuous bibasilar atelectasis since the previous study likely due to the decreased pleural effusion. Follow-up recommended to assure resolution Stable appearance of the support lines and tubes Electronically Signed: Ken Marquez MD at 11:00 EDT , Rhythm Strip Rhythm Strip: A-fib Rate: 124 Ectopy: None Physical Exam Const Constitutional Narrative: Intubated, sedated and mechanically ventilated. No ventilator dyssynchrony. RASS -2. Anasarca. HEENT normocephalic and head/scalp atraumatic Eyes PERRL and conjunctivae normal Neck supple General: trachea midline and CVC in place Chest inspection of chest normal Resp Auscultation: diminished lung sounds; Negative for rales, rhonchi or wheezes Cardio regular rate, S1 normal heart sound, S2 normal heart sound, no murmurs, no rub and no gallops Rhythm: abnormal rhythm GI normal to inspection, nondistended, normoactive bowel sounds Extremity Extremity Narrative: Diffuse minor ecchymotic areas in IV sites Skin General Skin Exam: venous stasis and dermatitis Neuro moves all extremities and no focal motor deficits Sensorium / Orientation: sedated on vent Psych Mood & Affect: flat affect Charges/Coding Procedures Hospitalists Procedures: 24070 Critial Care 1st Hr
--- NOTE | 2022-06-06 08:30 | PN.HOSP_ITS ---
Reason for Visit Reason for Visit: Diagnoses Sepsis, unspecified organism (05/19/22) Anemia, unspecified (05/19/22) Thrombocytopenia, unspecified (05/19/22) Type 2 diabetes mellitus with foot ulcer (05/19/22) Other toxic encephalopathy (05/19/22) Encephalopathy, unspecified (05/19/22) Unspecified atrial fibrillation (05/19/22) Pneumonia, unspecified organism (05/19/22) Chronic obstructive pulmonary disease with (acute) exacerbation (05/19/22) Acute and chronic respiratory failure with hypoxia (05/19/22) Acute and chronic respiratory failure with hypercapnia (05/19/22) Non-pressure chronic ulcer of other part of unspecified foot with unspecified severity (05/19/22) Acute kidney failure, unspecified (05/19/22) Generalized edema (05/19/22) Severe sepsis without septic shock (05/19/22) Severe sepsis with septic shock (05/19/22) Bacteremia (05/19/22) Dependence on respirator [ventilator] status (05/19/22) Subjective Subjective Remains intubated and mechanically ventilated Objective Data Objective Data Vital Signs: Vital Signs Temp Pulse Resp BP Pulse Ox O2 Del Method O2 Flow Rate 99.8 F H 120 H 11 L 113/61 99 Mechanical Ventilator 10 06/06/22 08:00 06/06/22 08:00 06/06/22 08:00 06/06/22 08:00 06/06/22 08:00 06/06/22 08:00 06/04/22 12:19 FiO2 40 06/06/22 08:00 Oxygen Flow Rate (L/min) 10 Oxygen Delivery Method Mechanical Ventilator Weight: 96.8 kg Body Mass Index (BMI) 35.5 Intake & Output: Intake and Output for Last 24 Hours 06/04/22 06/05/22 06/06/22 23:59 23:59 23:59 Intake Total 3562.18 / 3585.23 3127.05 / 3139.20 1453.07 / 1453.07 Output Total 225 / 225 390 / 390 300 / 300 Balance 3337.18 / 3360.23 2737.05 / 2749.20 1153.07 / 1153.07 Lab / Micro Data Result Diagrams: 06/06/22 03:37 06/06/22 03:37 Labs: Laboratory Results - last 24 hr 06/05/22 10:48: POC Glucose 127 H 06/05/22 16:39: POC Glucose 181 H 06/05/22 23:33: POC Glucose 179 H 06/06/22 03:37: WBC 6.0, RBC 2.72 L, Hgb 8.0 L, Hct 26.4 L, MCV 97.1, MCH 29.4, MCHC 30.3 L, RDW Std Deviation 62.5 H, RDW Coeff of Magen 17.6 H, Plt Count 89 L, MPV 11.6, Immature Gran % (Auto) 0.500, Neut % (Auto) 75.1 H, Lymph % (Auto) 15.7 L, [place] % (Auto) 5.9, Eos % (Auto) 2.5, Baso % (Auto) 0.3, Absolute Neuts (auto) 4.5, Absolute Lymphs (auto) 0.94, Nucleated RBC % 0, Platelet Estimate MOD 06/06/22 03:37: Sodium 150 H, Potassium 3.3 L, Chloride 121 H, Carbon Dioxide 26.0, Anion Gap 3 L, BUN 49 H, Creatinine 1.49 H, Estim Creat Clear Calc 32.07, Est GFR (MDRD) Af Amer 45 L, Est GFR (MDRD) Non-Af 37 L, BUN/Creatinine Ratio 32.9 H, Glucose 243 H, Calcium 8.2 L 06/06/22 05:12: POC Glucose 235 H Micro: Microbiology 06/04/22 13:05 Sputum, Induced/Lukens Gram Stain - Final 06/04/22 13:05 Sputum, Induced/Lukens Respiratory Culture - Preliminary Staphylococcus haemolyticus Gram negative marita 06/04/22 20:00 Urine Catheter - Catheter Urine Culture - Preliminary Culture exhibits no growth. 06/05/22 03:52 Wound - Leg, Left Gram Stain - Final 05/28/22 11:30 Suture Gram Stain - Final 05/28/22 11:30 Suture Wound Culture - Final Vancomycin Resist. E. faecium Staphylococcus haemolyticus 05/24/22 06:35 Wound - Arm Left Gram Stain - Final 05/24/22 06:35 Wound - Arm Left Wound Culture - Final Pseudomonas aeruginosa Staphylococcus haemolyticus Staphylococcus epidermidis 05/24/22 06:35 Wound - Arm Left Anaerobic Culture - Final No anaerobic bacteria isolated. 05/19/22 14:30 Blood Culture (Wb) - Port Blood Culture - Final No growth in 5 days. 05/19/22 13:45 Blood Culture (Wb) - Port Blood Culture - Final No growth in 5 days. 05/20/22 17:40 Sputum, Induced/Lukens Gram Stain - Final 05/20/22 17:40 Sputum, Induced/Lukens Respiratory Culture - Final Escherichia coli 05/19/22 22:20 Transtracheal Aspirate Gram Stain - Final 05/19/22 22:20 Transtracheal Aspirate Respiratory Culture - Final Escherichia coli 05/20/22 04:25 Urine Catheter - Knight Urine Culture - Final Culture exhibits no growth. 05/20/22 04:25 Urine Catheter - Knight Legionella Antigen - Final 05/20/22 04:25 Urine Catheter - Knight Streptococcus pneumoniae Antigen (M - Final 05/19/22 22:20 Mucosa - Nasopharyngeal Respiratory Panel (PCR) - Final Radiography Diagnostic Testing: Radiology Impression Chest X-Ray 06/05/22 10:35 IMPRESSION: Overall improvement compared to the previous study with significant decrease of a previously noted right pleural effusion. Continued follow-up recommended to assure complete resolution. More conspicuous bibasilar atelectasis since the previous study likely due to the decreased pleural effusion. Follow-up recommended to assure resolution Stable appearance of the support lines and tubes Electronically Signed: Ken Marquez MD at 11:00 EDT Reading Location ID and State: [address] [place] [address] , Service support , Rhythm Strip Rhythm Strip: A-fib Rate: 124 Ectopy: None Physical Exam Narrative General: Intubated HEENT: Atraumatic Eyes: Eyes closed comfortably Neck: Supple Respiratory: Mechanically ventilated Cardiovascular: Tachycardic GI: nondistended Extremities: Extremities wrapped Musculoskeletal: Moves extremities Neuro: Unable to participate in neuro exam due to intubated and sedated Skin: Chronic right lower leg changes Psych: Unable to cooperate due to intubated and sedated Assessment & Plan Assessment/Plan (1) Toxic metabolic encephalopathy: (2) Acute on chronic respiratory failure with hypoxia and hypercapnia: (3) Anemia: (4) Gram-negative bacteremia: PLAN: Plan #Acute hypoxic respiratory failure due to HFpEF and GNR and staph hemolyticus pneumonia -Had been intubated in the ICU in the beginning of her hospital stay w/ ecoli pneumonia but completed a course of meropenem and was started on Lasix and ultimately was able to be extubated and sent to the floor -Yesterday 06/04 she had increasing oxygen requirements and required reintubation -Remains intubated and sedated -Did have dysphagia prior to reintubation and PEG tube was recommended, will need to revisit this pending progress -Follow repeat cultures, ID reconsulted for eval -Vancomycin restarted -Remains on ipratropium nebs -06/06: Respiratory culture growing staph hemolyticus sensitive to vancomycin as well as a gram-negative marita that is awaiting speciation. On vancomycin, infectious disease following. Did have a wound and tissue specimen from her leg yesterday that shows 2+ gram-positive cocci in clusters, culture pending. Blood cultures pending. Additionally is having diarrhea, C. difficile pending. #Hypernatremia -Free water flushes have been increased -Challenge with diuretics when appropriate #Thrombocytopenia -Widely variable during admission -Down to 89, likely 2/2 infection and critical illness, given additional worsening anemia, will obtain hemolysis and DIC labs -Monitor for need to hold pharmacologic DVT prophylaxis #MIKE on CKD stage IIIb -Had resolved but creatinine slowly increasing again and is 1.20 today, enteral feeds on board -Hold IV diuresis, cannot rule out needing gentle hydration pending progress -06/06: Worsening kidney function, treat underlying infection and provide blood pressure support as necessary, diuretics when appropriate #Type 2 diabetes mellitus -Glucose checks and sliding scale insulin -06/06: Glucose increasing, likely secondary to infection and possibly now tube feeding with increased nutrition, continue sliding scale insulin and treat underlying cause and if persists can further adjust insulin #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 Intact dressing over stump -06/06: stump cx growing gram positive cocci, culture pending, ID on board #Septic shock due to ESBL E. coli?resolved -ID has been following, completed vancomycin and meropenem courses -Had been off of vasopressors prior to re intubation #Left upper extremity wound infection -Culture grew Pseudomonas and enteric coccus as well as Staph epidermidis and staph hemolyticus -Had been seen by infectious disease and completed meropenem course #Afib -On po amio #Chronic anemia -Monitor, transfuse for hgb <7 -Hemoglobin 9.1, overall fairly stable and no evidence of bleeding at this time -06/06: Hemoglobin 8, has had significant variation in hemoglobin string was hospitalization, no active evidence of bleeding, will monitor closely and transfuse as warranted #Hx CAD s/p stent -asa and statin #Hypothyroidism -Continue Synthroid #DVT ppx: Heparin subcu Coco Romero MD Time spent in the patient's overall evaluation,decision-making process, review of diagnostic data, adjustment of management, discussion with other providers, nursing nursing and ancillary staff involved in patient's care documentation, 30 minutes Charges/Coding Visit Charges Inpatient E&M: 26499 Subs Hosp L2
--- NOTE | 2022-06-06 09:18 | CASEMGMT ---
Addendum entered by Ana Luisa Cabral 06/06/22 12:16: Social Work Son Chava called in, SW spoke w/him about family meeting. Son states is very busy, is moving. He states that he cannot come in today. Son inquired what the meeting is for, SW explained the doctor wants to speak w/him and his siblings about the plan, if pt would have a trach and peg or if family would want comfort care and hospice. Son states pt is not ready for hospice and if this is the purpose of the meeting it is a waste of time. SW again reiterated that even if he has already decided on no hospice for pt, he and his siblings should come in to meet w/physician together, so they can hear all together at the same time how pt is doing and what the options are. Son states he works first shift. SW encouraged him to speak w/his siblings and come up w/a time, physician was hoping to meet w/them between 1-3. He was given ICU number, and he is to call pt's RN later today to let her know when they can come in to meet w/physician tomorrow. SW let RN know and left a message for the physician updating him. NATAN Oconnell Addendum entered by Ana Luisa Cabral 06/06/22 09:28: Social Work SW spoke w/Janine at [facility], pt is considered fdc at the facility, however she has run out of bedhold days. Therefore should pt return to [facility], she would need a new level of care. SW will continue to follow, awaiting a call back from son. NATAN Oconnell Original Note: Social Work Physician would like to meet w/family this afternoon to review plan of care for pt. SW called son and POLauro Larsen, message left to call SW back. NATAN Oconnell
[2022-06-06 09:43] LABS: LDH 271 U/L (84-246)
[2022-06-06 09:48] LABS: Immature Platelet Fraction 4.2 % (1.0-7.9); Platelet Count 89 K/mm3 (150-450); RET-HE 32.1 pg (30-35); Reticulocyte Count 0.57 % (0.5-1.5)
[2022-06-06 09:51] LABS: International Normalized Ratio 1.4; Prothrombin Time (Protime)PT. 17.3 SECONDS (11.7-14.9)
[2022-06-06 09:52] LABS: Fibrinogen 306 mg/dl (203-444); Partial Thromboplast Time 64.2 Seconds (24.1-36.2)
[2022-06-06 09:57] LABS: D-Dimer Quantitative (DVT/PE) 2.59 FEU/ug/m (0.27-0.49)
[2022-06-06 14:26] LABS: Bedside Glucose 237 mg/dL (74-106)
[2022-06-06 17:40] LABS: Bedside Glucose 269 mg/dL (74-106)
[2022-06-06 18:37] LABS: Absolute Lymphocyte Count 1.08 X10^3/uL (0.83-4.51); Absolute Neutrophil Count 3.9 X10^3/uL (2.0-7.7); Basophil# 0.03 X10^3/uL; Basophil% 0.5 % (0-1); Eosinophil# 0.28 X10^3/uL; Hematocrit 27.7 % (37-47); Hemoglobin 8.4 g/dL (12.0-15.0); Lymphocyte # 1.08 X10^3/ul (0.83-4.51); Lymphocyte % 19.1 % (19-41); Mean Corp Hgb Conc 30.3 g/dL (32-36); Mean Corpuscular Hgb 29.4 pg (27.0-32.0); Mean Corpuscular Volume 96.9 fL (81-99); Mean Platelet Vol. 12.3 fl (6.2-12.0); Monocyte# 0.35 X10^3/uL; Monocyte% 6.2 % (0-10); NRBC Flagged by Analyzer 0 % (0-5); Neutrophil # 3.86 X10^3/uL (2.7-7.7); Neutrophil % 68.3 % (47-70); POSITIVE COUNT YES; Platelet Count 86 K/mm3 (150-450); RBC Distribution Width CV 17.5 % (11.6-14.6); RBC Distribution Width SD 62.2 fl (35.1-43.9); Red Blood Count 2.86 M/mm3 (4.2-5.4); White Blood Count 5.7 K/mm3 (4.4-11.0)
[2022-06-06 18:48] LABS: AST(SGOT) 11 U/L (15-37); Alanine Aminotransfer ALT/SGPT 7 U/L (13-56); Albumin, Serum 1.4 g/dL (3.2-5.0); Alkaline Phosphatase 110 U/L (45-117); Bilirubin, Direct 0.21 mg/dL (0.00-0.30); Globulin 3.6 g/dL (2.2-4.2)
[2022-06-06] MEDS: Senna/Docusate Sodium 1 Tablet 2 TABLET NG (22:49)
[2022-06-06] MEDS: Jevity 1.5 1,000 ML 45 ML GT (22:51)
[2022-06-07] VITALS (34 sets, daily range): BP systolic 83–116; BP diastolic 49–84; PULSE 97–131; RESP 7–21; TEMP 37–37.7; O2SAT 87–98; BMI 35.9
[2022-06-07] MEDS: Insulin Lispro 100 UNIT/ML INSULN.PEN SC ×4 (00:23→17:52)
[2022-06-07] MEDS: Propofol 10MG/Ml 1,000 MG/100 ML Bottle 8.4 MG CONT INF ×3 (00:24→22:15)
[2022-06-07] MEDS: Ipratropium 0.5 MG/2.5 ML SOLUTION INHALATION ×4 (02:05→19:11)
[2022-06-07] MEDS: Vancomycin IV 1,000 MG/200 ML BAG 200 MG IV (03:56)
[2022-06-07 04:12] LABS: Absolute Lymphocyte Count 1.04 X10^3/uL (0.83-4.51); Absolute Neutrophil Count 3.2 X10^3/uL (2.0-7.7); Basophil# 0.02 X10^3/uL; Basophil% 0.4 % (0-1); Eosinophil# 0.38 X10^3/uL; Eosinophils% 7.7 % (0-5); Hematocrit 26.8 % (37-47); Hemoglobin 8.4 g/dL (12.0-15.0); Lymphocyte # 1.04 X10^3/ul (0.83-4.51); Mean Corp Hgb Conc 31.3 g/dL (32-36); Mean Corpuscular Hgb 30.1 pg (27.0-32.0); Mean Corpuscular Volume 96.1 fL (81-99); Mean Platelet Vol. 12.6 fl (6.2-12.0); Monocyte# 0.32 X10^3/uL; Monocyte% 6.5 % (0-10); NRBC Flagged by Analyzer 0 % (0-5); Neutrophil # 3.17 X10^3/uL (2.7-7.7); Neutrophil % 63.8 % (47-70); POSITIVE COUNT YES; Platelet Count 85 K/mm3 (150-450); RBC Distribution Width CV 17.2 % (11.6-14.6); Red Blood Count 2.79 M/mm3 (4.2-5.4)
[2022-06-07 04:32] LABS: ALB/GLOB Ratio 0.4 RATIO (0.9-2.4); AST(SGOT) 11 U/L (15-37); Alanine Aminotransfer ALT/SGPT 8 U/L (13-56); Albumin, Serum 1.3 g/dL (3.2-5.0); Alkaline Phosphatase 102 U/L (45-117); Anion Gap 4 (5-15); BUN 52 mg/dL (7-18); BUN/Creat Ratio 39.4 RATIO (10-20); Calcium,Total 7.9 mg/dL (8.5-10.1); Chloride 120 mmol/L (98-107); Creatinine, Serum 1.32 mg/dL (0.55-1.02); EST Glomerular Filtration Rate 43 mL/min (>60); Est Glom Filt Rate - Afr Amer 52 mL/min (>60); Globulin 3.6 g/dL (2.2-4.2); Glucose 255 mg/dL (74-106); Potassium 3.5 mmol/L (3.5-5.1); Protein, Total 4.9 g/dL (6.4-8.2); Sodium Level 149 mmol/L (136-145)
[2022-06-07 04:34] LABS: Vancomycin, Trough Level 43.9 ug/mL (5.0-15.0)
[2022-06-07] MEDS: Levothyroxine 125 MCG Tablet GT (05:50)
[2022-06-07] MEDS: Heparin Injection (Vial) 5,000 UNIT/ML VIAL 5000 UNIT SC ×3 (05:50→20:26)
[2022-06-07] MEDS: Nystatin Powder 15gm Bottle 1 APPLIC TOPICAL ×3 (05:50→20:27)
[2022-06-07 06:05] LABS: Bedside Glucose 231 mg/dL (74-106)
--- NOTE | 2022-06-07 07:22 | PCM.PN.INT ---
Assessment & Plan Assessment/Plan (1) Septic shock: PLAN: Plan RECOMMENDATIONS: 1. Continue assist-control mode mechanical ventilation. Wean FiO2 and PEEP to maintain saturations at or above 90%. 2. Appreciate ID input 3. Challenge with diuretics 4. Attempt to discontinue propofol 5. Continue appropriate ICU prophylaxis. 6. Await results of family meeting at 3 PM 7. Potentially prepare for trach and PEG if family wishes to remain aggressive IMPRESSIONS: 1. Septic shock Resolved. Patient does have a history of ESBL E. coli in this hospitalization. Patient has had some liquid bowel movements, but is not having any fever or leukocytosis. Patient did have some hypotension following intubation, but this appears to be resolved. ID is following and cultures are currently pending. Defer antibiotics to infectious disease 2. Encephalopathy Currently sedated. Most likely related to acute CO2 retention. It is unclear as to whether the patient had access to a BiPAP at her nursing facility and whether or not it was being utilized. Patient continues to fail to use BiPAP following extubation. Failure to use BiPAP will likely lead to recurrent metabolic encephalopathy secondary to elevated CO2 levels. 3. Acute on chronic combined respiratory failure Patient did grow ESBL E. coli in her sputum indicating pneumonia on presentation as an etiology of her initial respiratory failure. Patient CO2 retention is much improved following intubation. Plan to continue scheduled bronchodilators over concerns for underlying obstructive lung disease. We will attempt gentle diuresis today. It does not appear the patient was using BiPAP with sleep after extubation. Given protracted intubation status with only a brief interruption, patient would likely benefit from a trach and PEG to allow for medical stabilization and recovery. Clinical suspicion is that if patient is not going to tolerate nocturnal ventilation, long-term prognosis is extremely guarded. 4. Acute on chronic kidney disease Stable, but patient is developing hypernatremia and hyperchloremia. We will continue tube feeds with free water flushes. Most likely prerenal in etiology in the setting of #1. Creatinine has worsened recently, likely secondary to decreased perfusion with acidosis. We will plan to continue to monitor urine output for now. No current indication for renal replacement therapy. 5. 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 Continue to monitor H&H daily. Transfuse if hemoglobin drops below 7 g/dL. We will transfuse blood today. Continue PPI therapy as ordered. Sutures on AKA appear to be holding at this time despite anasarca. Potential meeting at 3 PM today to discuss with family about trach and PEG TIME: 33 minutes of critical care time, independent of procedures, was spent addressing the patient septic shock, encephalopathy, acute on chronic combined respiratory failure, acute on chronic kidney disease, review of all data and collaboration with the care team. Subjective Subjective Patient did okay overnight from a hemodynamic standpoint. Oxygenation status has significantly improved. Patient did have apnea on spontaneous breathing trial this morning. No fever has been noted over the last 24 hours. Heart rate has been maintained in the 110s Objective Data Objective Data Vital Signs: Vital Signs Temp Pulse Resp BP Pulse Ox O2 Del Method O2 Flow Rate 37.4 C H 113 H 15 98/79 96 Mechanical Ventilator 10 06/07/22 05:00 06/07/22 07:00 06/07/22 07:00 06/07/22 07:00 06/07/22 07:00 06/07/22 07:00 06/04/22 12:19 FiO2 30 06/07/22 07:00 Oxygen Flow Rate (L/min) 10 Oxygen Delivery Method Mechanical Ventilator Weight: 98 kg Body Mass Index (BMI) 35.9 Intake & Output: Intake and Output for Last 24 Hours 06/05/22 06/06/22 06/07/22 23:59 23:59 23:59 Intake Total 3127.05 / 3139.20 3509.51 / 3515.14 482.14 / 482.14 Output Total 390 / 390 650 / 900 500 / 500 Balance 2737.05 / 2749.20 2859.51 / 2615.14 -17.86 / -17.86 Lab / Micro Data Attestation: I reviewed the patient's lab results. Result Diagrams: 06/07/22 03:55 06/07/22 03:55 Labs: Laboratory Results - last 24 hr 06/06/22 03:37: Immature Plt Fraction 4.2, Retic Count 0.57, Immature Retic Fraction 11.80, Retic Hgb Equivalent 32.1 06/06/22 03:37: Lactate Dehydrogenase 271 H 06/06/22 09:30: PT 17.3 H, INR 1.4, APTT 64.2 H, Fibrinogen 306, D-Dimer Quant (PE/DVT) 2.59 H* 06/06/22 11:28: POC Glucose 237 H 06/06/22 17:08: POC Glucose 269 H 06/06/22 18:21: WBC 5.7, RBC 2.86 L, Hgb 8.4 L, Hct 27.7 L, MCV 96.9, MCH 29.4, MCHC 30.3 L, RDW Std Deviation 62.2 H, RDW Coeff of Magen 17.5 H, Plt Count 86 L, MPV 12.3 H, Immature Gran % (Auto) 0.900, Neut % (Auto) 68.3, Lymph % (Auto) 19.1, [place] % (Auto) 6.2, Eos % (Auto) 5.0, Baso % (Auto) 0.5, Absolute Neuts (auto) 3.9, Absolute Lymphs (auto) 1.08, Nucleated RBC % 0 06/06/22 18:21: Total Bilirubin 0.40, Direct Bilirubin 0.21, AST 11 L, ALT 7 L, Alkaline Phosphatase 110, Total Protein 5.0 L, Albumin 1.4 L, Globulin 3.6 06/07/22 03:55: Vancomycin Trough 43.9 H 06/07/22 03:55: WBC 5.0, RBC 2.79 L, Hgb 8.4 L, Hct 26.8 L, MCV 96.1, MCH 30.1, MCHC 31.3 L, RDW Std Deviation 60.0 H, RDW Coeff of Magen 17.2 H, Plt Count 85 L, MPV 12.6 H, Immature Gran % (Auto) 0.600, Neut % (Auto) 63.8, Lymph % (Auto) 21.0, [place] % (Auto) 6.5, Eos % (Auto) 7.7 H, Baso % (Auto) 0.4, Absolute Neuts (auto) 3.2, Absolute Lymphs (auto) 1.04, Nucleated RBC % 0 06/07/22 03:55: Sodium 149 H, Potassium 3.5, Chloride 120 H, Carbon Dioxide 25.0, Anion Gap 4 L, BUN 52 H, Creatinine 1.32 H, Estim Creat Clear Calc 36.20, Est GFR (MDRD) Af Amer 52 L, Est GFR (MDRD) Non-Af 43 L, BUN/Creatinine Ratio 39.4 H, Glucose 255 H, Calcium 7.9 L, Total Bilirubin 0.50, AST 11 L, ALT 8 L, Alkaline Phosphatase 102, Total Protein 4.9 L, Albumin 1.3 L, Globulin 3.6, Albumin/Globulin Ratio 0.4 L 06/07/22 05:47: POC Glucose 231 H Micro: Microbiology 06/05/22 16:40 Stool C. difficile GDH Antigen & Toxins - Final 06/05/22 16:40 Stool C. difficile DNA Amplification - Final 06/05/22 03:52 Wound - Leg, Left Gram Stain - Final 06/05/22 03:52 Wound - Leg, Left Wound Culture - Preliminary Staphylococcus species 06/04/22 13:05 Sputum, Induced/Lukens Gram Stain - Final 06/04/22 13:05 Sputum, Induced/Lukens Respiratory Culture - Preliminary Staphylococcus haemolyticus Gram negative marita 06/04/22 20:00 Urine Catheter - Catheter Urine Culture - Preliminary Culture exhibits no growth. 05/28/22 11:30 Suture Gram Stain - Final 05/28/22 11:30 Suture Wound Culture - Final Vancomycin Resist. E. faecium Staphylococcus haemolyticus 05/24/22 06:35 Wound - Arm Left Gram Stain - Final 05/24/22 06:35 Wound - Arm Left Wound Culture - Final Pseudomonas aeruginosa Staphylococcus haemolyticus Staphylococcus epidermidis 05/24/22 06:35 Wound - Arm Left Anaerobic Culture - Final No anaerobic bacteria isolated. 05/19/22 14:30 Blood Culture (Wb) - Port Blood Culture - Final No growth in 5 days. 05/19/22 13:45 Blood Culture (Wb) - Port Blood Culture - Final No growth in 5 days. 05/20/22 17:40 Sputum, Induced/Lukens Gram Stain - Final 05/20/22 17:40 Sputum, Induced/Lukens Respiratory Culture - Final Escherichia coli 05/19/22 22:20 Transtracheal Aspirate Gram Stain - Final 05/19/22 22:20 Transtracheal Aspirate Respiratory Culture - Final Escherichia coli 05/20/22 04:25 Urine Catheter - Knight Urine Culture - Final Culture exhibits no growth. 05/20/22 04:25 Urine Catheter - Knight Legionella Antigen - Final 05/20/22 04:25 Urine Catheter - Knight Streptococcus pneumoniae Antigen (M - Final 05/19/22 22:20 Mucosa - Nasopharyngeal Respiratory Panel (PCR) - Final Rhythm Strip Rhythm Strip: A-fib Rate: 117 Ectopy: None Physical Exam Const Constitutional Narrative: Intubated, sedated and mechanically ventilated. No ventilator dyssynchrony. RASS 0. Anasarca. HEENT normocephalic and head/scalp atraumatic Eyes PERRL and conjunctivae normal Neck supple General: trachea midline and CVC in place Chest inspection of chest normal Resp Auscultation: diminished lung sounds; Negative for rales, rhonchi or wheezes Cardio S1 normal heart sound, S2 normal heart sound, no murmurs, no rub and no gallops Rate: tachycardic Rhythm: abnormal rhythm GI normal to inspection, nondistended, normoactive bowel sounds Extremity Extremity Narrative: Diffuse minor ecchymotic areas in IV sites Skin General Skin Exam: venous stasis and dermatitis Neuro moves all extremities and no focal motor deficits Sensorium / Orientation: sedated on vent Psych Mood & Affect: flat affect Charges/Coding Procedures Hospitalists Procedures: 48297 Critial Care 1st Hr
[2022-06-07] MEDS: Chlorhexidine 15 ML PO ×2 (08:16→20:26)
[2022-06-07] MEDS: Furosemide 40 MG/4 ML Vial IV (08:16)
[2022-06-07 08:35] LABS: Bedside Glucose 238 mg/dL (74-106)
--- NOTE | 2022-06-07 09:11 | PCM.RX.CS ---
Consult Pharmacy has been consulted to manage selected antiobiotic: Vancomycin Type of Consult: Follow-up Prior Doses of Antibiotics Received/Current Regimen: Current order 1gm iv q12h. Labs: Sodium 149 mmol/L (136-145) H 06/07/22 03:55 Potassium 3.5 mmol/L (3.5-5.1) 06/07/22 03:55 Chloride 120 mmol/L (98-107) H 06/07/22 03:55 Carbon Dioxide 25.0 mmol/L (21.0-32.0) 06/07/22 03:55 Anion Gap 4 (5-15) L 06/07/22 03:55 BUN 52 mg/dL (7-18) H 06/07/22 03:55 Creatinine 1.32 mg/dL (0.55-1.02) H 06/07/22 03:55 Est GFR (MDRD) Af Amer 52 mL/min (>60) L 06/07/22 03:55 Est GFR (MDRD) Non-Af 43 mL/min (>60) L 06/07/22 03:55 BUN/Creatinine Ratio 39.4 RATIO (10-20) H 06/07/22 03:55 Glucose 255 mg/dL (74-106) H 06/07/22 03:55 Vancomycin Trough 43.9 ug/mL (5.0-15.0) H 06/07/22 03:55 Random Vancomycin 22.0 ug/mL (0.0-15.0) H 05/30/22 20:07 Microbiology: Microbiology 06/04/22 20:00 Urine Catheter - Catheter Urine Culture - Final Culture exhibits no growth. 06/05/22 03:52 Wound - Leg, Left Gram Stain - Final 06/05/22 03:52 Wound - Leg, Left Wound Culture - Preliminary Staphylococcus haemolyticus 06/05/22 16:40 Stool C. difficile GDH Antigen & Toxins - Final 06/05/22 16:40 Stool C. difficile DNA Amplification - Final 06/04/22 13:05 Sputum, Induced/Lukens Gram Stain - Final 06/04/22 13:05 Sputum, Induced/Lukens Respiratory Culture - Preliminary Staphylococcus haemolyticus Gram negative marita 05/28/22 11:30 Suture Gram Stain - Final 05/28/22 11:30 Suture Wound Culture - Final Vancomycin Resist. E. faecium Staphylococcus haemolyticus 03/29/23 06:35 Wound - Arm Left Gram Stain - Final 05/24/22 06:35 Wound - Arm Left Wound Culture - Final Pseudomonas aeruginosa Staphylococcus haemolyticus Staphylococcus epidermidis 05/24/22 06:35 Wound - Arm Left Anaerobic Culture - Final No anaerobic bacteria isolated. 05/19/22 14:30 Blood Culture (Wb) - Port Blood Culture - Final No growth in 5 days. 05/19/22 13:45 Blood Culture (Wb) - Port Blood Culture - Final No growth in 5 days. 05/20/22 17:40 Sputum, Induced/Lukens Gram Stain - Final 05/20/22 17:40 Sputum, Induced/Lukens Respiratory Culture - Final Escherichia coli 05/19/22 22:20 Transtracheal Aspirate Gram Stain - Final 05/19/22 22:20 Transtracheal Aspirate Respiratory Culture - Final Escherichia coli 05/20/22 04:25 Urine Catheter - Knight Urine Culture - Final Culture exhibits no growth. 05/20/22 04:25 Urine Catheter - Knight Legionella Antigen - Final 05/20/22 04:25 Urine Catheter - Knight Streptococcus pneumoniae Antigen (M - Final 05/19/22 22:20 Mucosa - Nasopharyngeal Respiratory Panel (PCR) - Final Weight used for dosin kg Estimated Creatinine Clearance: 36 ml/min Goal Trough: 15-20 mcg/mL Pharmacy Plan for Drug Dosing: Trough today 43.9 and above goal range. Further dosing stopped for now. Renal labs reviewed with Cr 1.32 and CrCl ~36ml/min. Random level ordered in 48hrs. Pharmacy Service will continue to monitor and adjust dosing as required. Follow-Up Labs: Trough Vancomycin - random level 4.14. 0600, Trough Gentamicin
--- NOTE | 2022-06-07 09:30 | PCM.PN.HOSP ---
Reason for Visit Reason for Visit: Diagnoses Sepsis, unspecified organism (05/19/22) Anemia, unspecified (05/19/22) Thrombocytopenia, unspecified (05/19/22) Type 2 diabetes mellitus with foot ulcer (05/19/22) Other toxic encephalopathy (05/19/22) Encephalopathy, unspecified (05/19/22) Unspecified atrial fibrillation (05/19/22) Pneumonia, unspecified organism (05/19/22) Chronic obstructive pulmonary disease with (acute) exacerbation (05/19/22) Acute and chronic respiratory failure with hypoxia (05/19/22) Acute and chronic respiratory failure with hypercapnia (05/19/22) Non-pressure chronic ulcer of other part of unspecified foot with unspecified severity (05/19/22) Acute kidney failure, unspecified (05/19/22) Generalized edema (05/19/22) Severe sepsis without septic shock (05/19/22) Severe sepsis with septic shock (05/19/22) Bacteremia (05/19/22) Dependence on respirator [ventilator] status (05/19/22) Subjective Subjective Remains intubated, eyes open and look around but was not following commands Objective Data Objective Data Vital Signs: Vital Signs Temp Pulse Resp BP Pulse Ox O2 Del Method O2 Flow Rate 99.5 F H 111 H 20 H 99/62 97 Mechanical Ventilator 10 06/07/22 08:00 06/07/22 08:00 06/07/22 08:00 06/07/22 08:00 06/07/22 08:00 06/07/22 08:00 06/04/22 12:19 FiO2 30 06/07/22 08:00 Oxygen Flow Rate (L/min) 10 Oxygen Delivery Method Mechanical Ventilator Weight: 98 kg Body Mass Index (BMI) 35.9 Intake & Output: Intake and Output for Last 24 Hours 06/05/22 06/06/22 06/07/22 23:59 23:59 23:59 Intake Total 3127.05 / 3139.20 3509.51 / 3515.14 498.04 / 498.04 Output Total 390 / 390 650 / 900 500 / 500 Balance 2737.05 / 2749.20 2859.51 / 2615.14 -1.96 / -1.96 Lab / Micro Data Result Diagrams: 06/07/22 03:55 06/07/22 03:55 Labs: Laboratory Results - last 24 hr 06/06/22 03:37: Immature Plt Fraction 4.2, Retic Count 0.57, Immature Retic Fraction 11.80, Retic Hgb Equivalent 32.1 06/06/22 03:37: Lactate Dehydrogenase 271 H 06/06/22 09:30: PT 17.3 H, INR 1.4, APTT 64.2 H, Fibrinogen 306, D-Dimer Quant (PE/DVT) 2.59 H* 06/06/22 11:28: POC Glucose 237 H 06/06/22 17:08: POC Glucose 269 H 06/06/22 18:21: WBC 5.7, RBC 2.86 L, Hgb 8.4 L, Hct 27.7 L, MCV 96.9, MCH 29.4, MCHC 30.3 L, RDW Std Deviation 62.2 H, RDW Coeff of Magen 17.5 H, Plt Count 86 L, MPV 12.3 H, Immature Gran % (Auto) 0.900, Neut % (Auto) 68.3, Lymph % (Auto) 19.1, [place] % (Auto) 6.2, Eos % (Auto) 5.0, Baso % (Auto) 0.5, Absolute Neuts (auto) 3.9, Absolute Lymphs (auto) 1.08, Nucleated RBC % 0 06/06/22 18:21: Total Bilirubin 0.40, Direct Bilirubin 0.21, AST 11 L, ALT 7 L, Alkaline Phosphatase 110, Total Protein 5.0 L, Albumin 1.4 L, Globulin 3.6 06/07/22 00:18: POC Glucose 238 H 06/07/22 03:55: Vancomycin Trough 43.9 H 06/07/22 03:55: WBC 5.0, RBC 2.79 L, Hgb 8.4 L, Hct 26.8 L, MCV 96.1, MCH 30.1, MCHC 31.3 L, RDW Std Deviation 60.0 H, RDW Coeff of Magen 17.2 H, Plt Count 85 L, MPV 12.6 H, Immature Gran % (Auto) 0.600, Neut % (Auto) 63.8, Lymph % (Auto) 21.0, [place] % (Auto) 6.5, Eos % (Auto) 7.7 H, Baso % (Auto) 0.4, Absolute Neuts (auto) 3.2, Absolute Lymphs (auto) 1.04, Nucleated RBC % 0 06/07/22 03:55: Sodium 149 H, Potassium 3.5, Chloride 120 H, Carbon Dioxide 25.0, Anion Gap 4 L, BUN 52 H, Creatinine 1.32 H, Estim Creat Clear Calc 36.20, Est GFR (MDRD) Af Amer 52 L, Est GFR (MDRD) Non-Af 43 L, BUN/Creatinine Ratio 39.4 H, Glucose 255 H, Calcium 7.9 L, Total Bilirubin 0.50, AST 11 L, ALT 8 L, Alkaline Phosphatase 102, Total Protein 4.9 L, Albumin 1.3 L, Globulin 3.6, Albumin/Globulin Ratio 0.4 L 06/07/22 05:47: POC Glucose 231 H Micro: Microbiology 06/04/22 20:00 Urine Catheter - Catheter Urine Culture - Final Culture exhibits no growth. 06/05/22 03:52 Wound - Leg, Left Gram Stain - Final 06/05/22 03:52 Wound - Leg, Left Wound Culture - Preliminary Staphylococcus haemolyticus 06/05/22 16:40 Stool C. difficile GDH Antigen & Toxins - Final 06/05/22 16:40 Stool C. difficile DNA Amplification - Final 06/04/22 13:05 Sputum, Induced/Lukens Gram Stain - Final 06/04/22 13:05 Sputum, Induced/Lukens Respiratory Culture - Preliminary Staphylococcus haemolyticus Gram negative marita 05/28/22 11:30 Suture Gram Stain - Final 05/28/22 11:30 Suture Wound Culture - Final Vancomycin Resist. E. faecium Staphylococcus haemolyticus 05/24/22 06:35 Wound - Arm Left Gram Stain - Final 05/24/22 06:35 Wound - Arm Left Wound Culture - Final Pseudomonas aeruginosa Staphylococcus haemolyticus Staphylococcus epidermidis 05/24/22 06:35 Wound - Arm Left Anaerobic Culture - Final No anaerobic bacteria isolated. 05/19/22 14:30 Blood Culture (Wb) - Port Blood Culture - Final No growth in 5 days. 05/19/22 13:45 Blood Culture (Wb) - Port Blood Culture - Final No growth in 5 days. 05/20/22 17:40 Sputum, Induced/Lukens Gram Stain - Final 05/20/22 17:40 Sputum, Induced/Lukens Respiratory Culture - Final Escherichia coli 05/19/22 22:20 Transtracheal Aspirate Gram Stain - Final 05/19/22 22:20 Transtracheal Aspirate Respiratory Culture - Final Escherichia coli 05/20/22 04:25 Urine Catheter - Knight Urine Culture - Final Culture exhibits no growth. 05/20/22 04:25 Urine Catheter - Knight Legionella Antigen - Final 05/20/22 04:25 Urine Catheter - Knight Streptococcus pneumoniae Antigen (M - Final 05/19/22 22:20 Mucosa - Nasopharyngeal Respiratory Panel (PCR) - Final Rhythm Strip Rhythm Strip: A-fib Rate: 117 Ectopy: None Physical Exam Narrative General: Intubated HEENT: Atraumatic Eyes: Eyes open and looking around Neck: Supple Respiratory: Mechanically ventilated, no wheezes or significant rhonchi appreciated Cardiovascular: Tachycardic GI: nondistended Extremities: Extremities wrapped Musculoskeletal: With not following commands to squeeze hands but was looking around Neuro: Unable to participate in neuro exam due to intubated and sedated Skin: Chronic right lower leg changes Psych: Looked around but would not follow commands Assessment & Plan Assessment/Plan (1) Toxic metabolic encephalopathy: (2) Acute on chronic respiratory failure with hypoxia and hypercapnia: (3) Anemia: (4) Gram-negative bacteremia: PLAN: Plan #Acute hypoxic respiratory failure due to HFpEF and GNR and staph hemolyticus pneumonia -Had been intubated in the ICU in the beginning of her hospital stay w/ ecoli pneumonia but completed a course of meropenem and was started on Lasix and ultimately was able to be extubated and sent to the floor -Yesterday 06/04 she had increasing oxygen requirements and required reintubation -Remains intubated and sedated -Did have dysphagia prior to reintubation and PEG tube was recommended, will need to revisit this pending progress -Follow repeat cultures, ID reconsulted for eval -Vancomycin restarted -Remains on ipratropium nebs -06/06: Respiratory culture growing staph hemolyticus sensitive to vancomycin as well as a gram-negative marita that is awaiting speciation. On vancomycin, infectious disease following. Did have a wound and tissue specimen from her leg yesterday that shows 2+ gram-positive cocci in clusters, culture pending. Blood cultures pending. Additionally is having diarrhea, C. difficile pending. -06/07: C. difficile PCR positive but antigen and toxin negative. Wound with staph hemolyticus, sputum also with staph hemolyticus and gram-negative rods which speciation is still pending, blood cultures pending #Hypernatremia -Free water flushes have been increased -Challenge with diuretics when appropriate -06/07: Sodium 149 today, to be challenged with diuretics, is up in weight today. Continue to monitor daily weights and I's and O's #Thrombocytopenia -Widely variable during admission -Down to 89, likely 2/2 infection and critical illness, given additional worsening anemia, will obtain hemolysis and DIC labs -Monitor for need to hold pharmacologic DVT prophylaxis #MIKE on CKD stage IIIb -Had resolved but creatinine slowly increasing again and is 1.20 today, enteral feeds on board -Hold IV diuresis, cannot rule out needing gentle hydration pending progress -06/06: Worsening kidney function, treat underlying infection and provide blood pressure support as necessary, diuretics when appropriate -06/07: Slightly improved today #Type 2 diabetes mellitus -Glucose checks and sliding scale insulin -06/06: Glucose increasing, likely secondary to infection and possibly now tube feeding with increased nutrition, continue sliding scale insulin and treat underlying cause and if persists can further adjust insulin #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 Intact dressing over stump -06/06: stump cx growing gram positive cocci, culture pending, ID on board #Septic shock due to ESBL E. coli?resolved -ID has been following, completed vancomycin and meropenem courses -Had been off of vasopressors prior to re intubation #Left upper extremity wound infection -Culture grew Pseudomonas and enteric coccus as well as Staph epidermidis and staph hemolyticus -Had been seen by infectious disease and completed meropenem course #Afib -On po amio #Chronic anemia -Monitor, transfuse for hgb <7 -Hemoglobin 9.1, overall fairly stable and no evidence of bleeding at this time -06/06: Hemoglobin 8, has had significant variation in hemoglobin string was hospitalization, no active evidence of bleeding, will monitor closely and transfuse as warranted #Hx CAD s/p stent -asa and statin #Hypothyroidism -Continue Synthroid #DVT ppx: Heparin subcu Coco Romero MD Time spent in the patient's overall evaluation,decision-making process, review of diagnostic data, adjustment of management, discussion with other providers, nursing nursing and ancillary staff involved in patient's care documentation, 30 minutes Charges/Coding Visit Charges Inpatient E&M: 34306 Subs Hosp L2
[2022-06-07] MEDS: Juven (unflavored) Packet 1 PACKET GT ×2 (11:12→17:53)
[2022-06-07] MEDS: Aspirin 81 MG TAB.CHEW NG (11:12)
[2022-06-07] MEDS: Senna/Docusate Sodium 1 Tablet 2 TABLET NG ×2 (11:12→20:31)
[2022-06-07] MEDS: Paroxetine 20 MG Tablet NG (11:12)
[2022-06-07] MEDS: Menthol/Lanolin/Calamine/Znox 113 GM Tube 1 APPLIC TOPICAL ×2 (11:13→20:27)
[2022-06-07] MEDS: Amiodarone 200 MG Tablet NG ×2 (11:13→20:25)
[2022-06-07 11:17] LABS: Haptoglobin 109 mg/dL (37-355)
[2022-06-07] MEDS: Vital AF 1.2 Cal Liquid 1,000 ML 15 ML GT (11:20)
[2022-06-07 12:40] LABS: Bedside Glucose 275 mg/dL (74-106)
[2022-06-07] MEDS: Ciprofloxacin 400 MG/200 ML BAG 200 MG IV ×2 (13:39→20:25)
--- NOTE | 2022-06-07 13:41 | PCM.PN.ID ---
Physical Exam Narrative On vent, low grade temps Const no apparent distress Resp Effort and Inspection: mechanically ventilated Auscultation: rhonchi Cardio Rate: tachycardic GI soft to palpation, non-tender and non-distended Extremity General Extremity: edema Skin Skin Narrative: leg bandaged ID ID: Route of nutrition/ use of supplements: [] Nutritional Intake: [] IV Site: [] Knight Catheter: [] Assessment & Plan Assessment/Plan (1) Septic shock: PLAN: On vent and remains off pressor. On vanc for MR-CoNS L stump infection. Worsening temps, remains on vent, some secretions. Sputum cx with MR-CoNS and CRE pseudomonas. Will order isolation and start iv cipro. Will follow, d/w nursing
[2022-06-07 18:35] LABS: Bedside Glucose 234 mg/dL (74-106)
[2022-06-08] VITALS (38 sets, daily range): BP systolic 79–111; BP diastolic 54–75; PULSE 97–162; RESP 18–24; TEMP 36.8–37.2; O2SAT 91–100; BMI 36.2
[2022-06-08] MEDS: Insulin Lispro 100 UNIT/ML INSULN.PEN SC ×4 (00:01→23:44)
[2022-06-08 00:26] LABS: Bedside Glucose 216 mg/dL (74-106)
[2022-06-08] MEDS: Ipratropium 0.5 MG/2.5 ML SOLUTION INHALATION ×3 (01:51→20:12)
[2022-06-08 03:59] LABS: Absolute Lymphocyte Count 1.11 X10^3/uL (0.83-4.51); Absolute Neutrophil Count 1.8 X10^3/uL (2.0-7.7); Basophil# 0.01 X10^3/uL; Basophil% 0.2 % (0-1); Eosinophil# 0.92 X10^3/uL; Eosinophils% 21.5 % (0-5); Hematocrit 25.9 % (37-47); Hemoglobin 8.1 g/dL (12.0-15.0); Lymphocyte # 1.11 X10^3/ul (0.83-4.51); Mean Corp Hgb Conc 31.3 g/dL (32-36); Mean Corpuscular Hgb 29.8 pg (27.0-32.0); Mean Corpuscular Volume 95.2 fL (81-99); Mean Platelet Vol. 11.5 fl (6.2-12.0); Monocyte# 0.43 X10^3/uL; Monocyte% 10.1 % (0-10); NRBC Flagged by Analyzer 0 % (0-5); Neutrophil # 1.78 X10^3/uL (2.7-7.7); Neutrophil % 41.7 % (47-70); POSITIVE COUNT YES; Platelet Count 83 K/mm3 (150-450); RBC Distribution Width CV 17.5 % (11.6-14.6); RBC Distribution Width SD 60.2 fl (35.1-43.9); Red Blood Count 2.72 M/mm3 (4.2-5.4); White Blood Count 4.3 K/mm3 (4.4-11.0)
[2022-06-08 04:26] LABS: ALB/GLOB Ratio 0.4 RATIO (0.9-2.4); AST(SGOT) 9 U/L (15-37); Alanine Aminotransfer ALT/SGPT < 6 U/L (13-56); Albumin, Serum 1.2 g/dL (3.2-5.0); Alkaline Phosphatase 97 U/L (45-117); Anion Gap 2 (5-15); BUN 50 mg/dL (7-18); Calcium,Total 7.6 mg/dL (8.5-10.1); Chloride 118 mmol/L (98-107); Creatinine, Serum 1.25 mg/dL (0.55-1.02); EST Glomerular Filtration Rate 46 mL/min (>60); Est Glom Filt Rate - Afr Amer 55 mL/min (>60); Estimated Creatinine Clearance 38.23 ml/min; Globulin 3.4 g/dL (2.2-4.2); Glucose 216 mg/dL (74-106); Potassium 3.2 mmol/L (3.5-5.1); Protein, Total 4.6 g/dL (6.4-8.2); Sodium Level 147 mmol/L (136-145)
[2022-06-08] MEDS: 0.9% Saline Lock 10 ML Syringe IV (05:08)
[2022-06-08] MEDS: CHLORHEXIDINE GLUC 2% CLOTH 1 EACH TOWELETTE TOPICAL (05:08)
[2022-06-08] MEDS: Nystatin Powder 15gm Bottle 1 APPLIC TOPICAL ×3 (05:08→21:13)
[2022-06-08] MEDS: Heparin Injection (Vial) 5,000 UNIT/ML VIAL 5000 UNIT SC ×3 (05:16→21:14)
[2022-06-08] MEDS: Levothyroxine 125 MCG Tablet GT (05:17)
[2022-06-08 05:46] LABS: Bedside Glucose 190 mg/dL (74-106)
[2022-06-08] MEDS: TITRATION PARAMETER CHANGE 1 EACH IV (06:40)
[2022-06-08] MEDS: Potassium Chloride 20mEq/100mL 20 MEQ/100 ML IV.SOLN. 100 MEQ IV BOLUS ×2 (06:40→08:38)
--- NOTE | 2022-06-08 07:51 | PN.CC_ITS ---
Assessment & Plan Assessment/Plan (1) Septic shock: PLAN: Plan RECOMMENDATIONS: 1. Continue assist-control mode mechanical ventilation. Wean FiO2 and PEEP to maintain saturations at or above 90%. 2. Appreciate ID input. On contact precautions 3. Challenge with diuretics and Reglan 4. Attempt to discontinue propofol 5. Continue appropriate ICU prophylaxis. 6. Continue to attempt family communication 7. Potentially prepare for trach and PEG if family wishes to remain aggressive IMPRESSIONS: 1. Septic shock Resolved. Patient does have a history of ESBL E. coli in this hospitalization. Patient has had some liquid bowel movements, but is not having any fever or leukocytosis. Patient did have some hypotension following intubation, but this appears to be resolved. ID is following and cultures are noted. Defer antibiotics to infectious disease 2. Encephalopathy Tolerating sedation breaks better. Most likely related to acute CO2 retention. It is unclear as to whether the patient had access to a BiPAP at her nursing facility and whether or not it was being utilized. Patient continues to fail to use BiPAP following extubation. Failure to use BiPAP will likely lead to recurrent metabolic encephalopathy secondary to elevated CO2 levels. 3. Acute on chronic combined respiratory failure Patient did grow ESBL E. coli in her sputum indicating pneumonia on presentation as an etiology of her initial respiratory failure. Patient CO2 r etention is much improved following intubation. Plan to continue scheduled bronchodilators over concerns for underlying obstructive lung disease. We will attempt gentle diuresis today. It does not appear the patient was using BiPAP with sleep after extubation. Given protracted intubation status with only a brief interruption, patient would likely benefit from a trach and PEG to allow for medical stabilization and recovery. Clinical suspicion is that if patient is not going to tolerate nocturnal ventilation, long-term prognosis is extremely guarded. 4. Acute on chronic kidney disease Stable, but patient is developing hypernatremia and hyperchloremia. We wi ll continue tube feeds with free water flushes. Most likely prerenal in etiology in the setting of #1. Creatinine has worsened recently, likely secondary to decreased perfusion with acidosis. We will plan to continue to monitor urine output for now. No current indication for renal replacement th erapy. 5. Dry gangrene of the left leg status post recent AKA/recurrent hospitaliza tions/diabetes mellitus/anemia/hyperlipidemia/CAD/gastroparesis Complicates care, management, recovery and prognosis. Continue to monitor H&H daily. Transfuse if hemoglobin drops below 7 g/dL. We will transfuse blood today. Continue PPI therapy as ordered. Sutures on AKA appear to be holding at this time despite anasarca. Will initiate Reglan TIME: 35 minutes of critical care time, independent of procedures, was spent addressing the patient septic shock, encephalopathy, acute on chronic combined respiratory failure, acute on chronic kidney disease, review of all data and collaboration with the care team. Subjective Subjective Patient did okay overnight. Patient's oxygenation status continues to improve. Patient is currently off of Levophed. Patient was able to tolerate a spontaneous awakening trial this morning, but had heart rates going into the 16 0s with a spontaneous breathing trial. Family meeting was scheduled for yesterday at 3 PM. Waited around till 3:45 PM. Family never arrived. No call was made from family indicating any issues. Objective Data Objective Data Vital Signs: Vital Signs Temp Pulse Resp BP Pulse Ox O2 Del Method O2 Flow Rate 36.8 C 107 H 20 H 111/69 92 Mechanical Ventilator 10 06/08/22 06:00 06/08/22 07:18 06/08/22 07:18 06/08/22 07:00 06/08/22 07:18 06/08/22 07:00 06/04/22 12:19 FiO2 35 06/08/22 07:18 Oxygen Flow Rate (L/min) 10 Oxygen Delivery Method Mechanical Ventilator Weight: 98.6 kg Body Mass Index (BMI) 36.2 Intake & Output: Intake and Output for Last 24 Hours 06/06/22 06/07/22 06/08/22 23:59 23:59 23:59 Intake Total 3509.51 / 3515.14 2756.95 / 3162.85 925.16 / 925.16 Output Total 650 / 900 1775 / 2200 750 / 750 Balance 2859.51 / 2615.14 981.95 / 962.85 175.16 / 175.16 Lab / Micro Data Attestation: I reviewed the patient's lab results. Result Diagrams: 06/08/22 03:52 06/08/22 03:52 Labs: Laboratory Results - last 24 hr 06/06/22 09:30: Haptoglobin 109 06/07/22 00:18: POC Glucose 238 H 06/07/22 12:07: POC Glucose 275 H 06/07/22 17:50: POC Glucose 234 H 06/08/22 00:00: POC Glucose 216 H 06/08/22 03:52: WBC 4.3 L, RBC 2.72 L, Hgb 8.1 L, Hct 25.9 L, MCV 95.2, MCH 29.8, MCHC 31.3 L, RDW Std Deviation 60.2 H, RDW Coeff of Magen 17.5 H, Plt Count 83 L, MPV 11.5, Immature Gran % (Auto) 0.500, Neut % (Auto) 41.7 L, Lymph % (Auto) 26.0, [place] % (Auto) 10.1 H, Eos % (Auto) 21.5 H, Baso % (Auto) 0.2, Absolute Neuts (auto) 1.8 L, Absolute Lymphs (auto) 1.11, Nucleated RBC % 0 06/08/22 03:52: Sodium 147 H, Potassium 3.2 L, Chloride 118 H, Carbon Dioxide 27 .0, Anion Gap 2 L, BUN 50 H, Creatinine 1.25 H, Estim Creat Clear Calc 38.23, Est GFR (MDRD) Af Amer 55 L, Est GFR (MDRD) Non-Af 46 L, BUN/Creatinine Ratio 40.0 H, Glucose 216 H, Calcium 7.6 L, Total Bilirubin 0.40, AST 9 L, ALT < 6 L, Alkaline Phosphatase 97, Total Protein 4.6 L, Albumin 1.2 L, Globulin 3.4, A lbumin/Globulin Ratio 0.4 L 06/08/22 05:14: POC Glucose 190 H Micro: Microbiology 06/05/22 03:52 Wound - Leg, Left Gram Stain - Final 06/05/22 03:52 Wound - Leg, Left Wound Culture - Preliminary Staphylococcus haemolyticus Enterococcus faecium 06/04/22 22:25 Blood Culture (Wb) - Arm Left Blood Culture - Preliminary No growth in 48 hours. 06/04/22 18:30 Blood Culture (Wb) - Pic Blood Culture - Preliminary No growth in 48 hours. 06/04/22 13:05 Sputum, Induced/Lukens Gram Stain - Final 06/04/22 13:05 Sputum, Induced/Lukens Respiratory Culture - Final Staphylococcus haemolyticus Pseudomonas aeruginosa 06/04/22 20:00 Urine Catheter - Catheter Urine Culture - Final Culture exhibits no growth. 06/05/22 16:40 Stool C. difficile GDH Antigen & Toxins - Final 06/05/22 16:40 Stool C. difficile DNA Amplification - Final 05/28/22 11:30 Suture Gram Stain - Final 05/28/22 11:30 Suture Wound Culture - Final Vancomycin Resist. E. faecium Staphylococcus haemolyticus 05/24/22 06:35 Wound - Arm Left Gram Stain - Final 05/24/22 06:35 Wound - Arm Left Wound Culture - Final Pseudomonas aeruginosa Staphylococcus haemolyticus Staphylococcus epidermidis 05/24/22 06:35 Wound - Arm Left Anaerobic Culture - Final No anaerobic bacteria isolated. 05/19/22 14:30 Blood Culture (Wb) - Port Blood Culture - Final No growth in 5 days. 05/19/22 13:45 Blood Culture (Wb) - Port Blood Culture - Final No growth in 5 days. 05/20/22 17:40 Sputum, Induced/Lukens Gram Stain - Final 05/20/22 17:40 Sputum, Induced/Lukens Respiratory Culture - Final Escherichia coli 05/19/22 22:20 Transtracheal Aspirate Gram Stain - Final 05/19/22 22:20 Transtracheal Aspirate Respiratory Culture - Final Escherichia coli 05/20/22 04:25 Urine Catheter - Knight Urine Culture - Final Culture exhibits no growth. 05/20/22 04:25 Urine Catheter - Knight Legionella Antigen - Final 05/20/22 04:25 Urine Catheter - Knight Streptococcus pneumoniae Antigen (M - Final 05/19/22 22:20 Mucosa - Nasopharyngeal Respiratory Panel (PCR) - Final Rhythm Strip Rhythm Strip: A flutter Rate: 92 Ectopy: None Physical Exam Const Constitutional Narrative: Intubated, sedated and mechanically ventilated. No ventilator dyssynchrony. RASS 0. Anasarca. HEENT normocephalic and head/scalp atraumatic Eyes PERRL and conjunctivae normal Neck supple General: trachea midline and CVC in place Chest inspection of chest normal Resp Auscultation: diminished lung sounds; Negative for rales, rhonchi or wheezes Cardio regular rate, S1 normal heart sound, S2 normal heart sound, no murmurs, no rub and no gallops Rhythm: abnormal rhythm GI normal to inspection, nondistended, normoactive bowel sounds Extremity Extremity Narrative: Diffuse minor ecchymotic areas in IV sites Skin General Skin Exam: venous stasis and dermatitis Neuro moves all extremities and no focal motor deficits Sensorium / Orientation: sedated on vent Psych Mood & Affect: flat affect Charges/Coding Procedures Hospitalists Procedures: [id number] Critial Care 1st Hr
--- NOTE | 2022-06-08 08:33 | PCM.PN.HOSP ---
Reason for Visit Reason for Visit: Diagnoses Sepsis, unspecified organism (05/19/22) Anemia, unspecified (05/19/22) Thrombocytopenia, unspecified (05/19/22) Type 2 diabetes mellitus with foot ulcer (05/19/22) Other toxic encephalopathy (05/19/22) Encephalopathy, unspecified (05/19/22) Unspecified atrial fibrillation (05/19/22) Pneumonia, unspecified organism (05/19/22) Chronic obstructive pulmonary disease with (acute) exacerbation (05/19/22) Acute and chronic respiratory failure with hypoxia (05/19/22) Acute and chronic respiratory failure with hypercapnia (05/19/22) Non-pressure chronic ulcer of other part of unspecified foot with unspecified severity (05/19/22) Acute kidney failure, unspecified (05/19/22) Generalized edema (05/19/22) Severe sepsis without septic shock (05/19/22) Severe sepsis with septic shock (05/19/22) Bacteremia (05/19/22) Dependence on respirator [ventilator] status (05/19/22) Subjective Subjective Remains intubated and sedated, failed SBT trial this a.m. due to heart rate into the 160s Objective Data Objective Data Vital Signs: Vital Signs Temp Pulse Resp BP Pulse Ox O2 Del Method O2 Flow Rate 98.3 F 107 H 20 H 111/69 92 Mechanical Ventilator 10 06/08/22 06:00 06/08/22 07:18 06/08/22 07:18 06/08/22 07:00 06/08/22 07:18 06/08/22 07:00 06/04/22 12:19 FiO2 35 06/08/22 07:18 Oxygen Flow Rate (L/min) 10 Oxygen Delivery Method Mechanical Ventilator Weight: 98.6 kg Body Mass Index (BMI) 36.2 Intake & Output: Intake and Output for Last 24 Hours 06/06/22 06/07/22 06/08/22 23:59 23:59 23:59 Intake Total 3509.51 / 3515.14 2756.95 / 3162.85 925.16 / 925.16 Output Total 650 / 900 1775 / 2200 750 / 750 Balance 2859.51 / 2615.14 981.95 / 962.85 175.16 / 175.16 Lab / Micro Data Result Diagrams: 06/08/22 03:52 06/08/22 03:52 Labs: Laboratory Results - last 24 hr 06/06/22 09:30: Haptoglobin 109 06/07/22 00:18: POC Glucose 238 H 06/07/22 12:07: POC Glucose 275 H 06/07/22 17:50: POC Glucose 234 H 06/08/22 00:00: POC Glucose 216 H 06/08/22 03:52: WBC 4.3 L, RBC 2.72 L, Hgb 8.1 L, Hct 25.9 L, MCV 95.2, MCH 29.8, MCHC 31.3 L, RDW Std Deviation 60.2 H, RDW Coeff of Magen 17.5 H, Plt Count 83 L, MPV 11.5, Immature Gran % (Auto) 0.500, Neut % (Auto) 41.7 L, Lymph % (Auto) 26.0, Dooly % (Auto) 10.1 H, Eos % (Auto) 21.5 H, Baso % (Auto) 0.2, Absolute Neuts (auto) 1.8 L, Absolute Lymphs (auto) 1.11, Nucleated RBC % 0 06/08/22 03:52: Sodium 147 H, Potassium 3.2 L, Chloride 118 H, Carbon Dioxide 27.0, Anion Gap 2 L, BUN 50 H, Creatinine 1.25 H, Estim Creat Clear Calc 38.23, Est GFR (MDRD) Af Amer 55 L, Est GFR (MDRD) Non-Af 46 L, BUN/Creatinine Ratio 40.0 H, Glucose 216 H, Calcium 7.6 L, Total Bilirubin 0.40, AST 9 L, ALT < 6 L, Alkaline Phosphatase 97, Total Protein 4.6 L, Albumin 1.2 L, Globulin 3.4, Albumin/Globulin Ratio 0.4 L 06/08/22 05:14: POC Glucose 190 H Micro: Microbiology 06/05/22 03:52 Wound - Leg, Left Gram Stain - Final 06/05/22 03:52 Wound - Leg, Left Wound Culture - Preliminary Staphylococcus haemolyticus Enterococcus faecium 06/04/22 22:25 Blood Culture (Wb) - Arm Left Blood Culture - Preliminary No growth in 48 hours. 06/04/22 18:30 Blood Culture (Wb) - Pic Blood Culture - Preliminary No growth in 48 hours. 06/04/22 13:05 Sputum, Induced/Lukens Gram Stain - Final 06/04/22 13:05 Sputum, Induced/Lukens Respiratory Culture - Final Staphylococcus haemolyticus Pseudomonas aeruginosa 06/04/22 20:00 Urine Catheter - Catheter Urine Culture - Final Culture exhibits no growth. 06/05/22 16:40 Stool C. difficile GDH Antigen & Toxins - Final 06/05/22 16:40 Stool C. difficile DNA Amplification - Final 05/28/22 11:30 Suture Gram Stain - Final 05/28/22 11:30 Suture Wound Culture - Final Vancomycin Resist. E. faecium Staphylococcus haemolyticus 05/24/22 06:35 Wound - Arm Left Gram Stain - Final 05/24/22 06:35 Wound - Arm Left Wound Culture - Final Pseudomonas aeruginosa Staphylococcus haemolyticus Staphylococcus epidermidis 05/24/22 06:35 Wound - Arm Left Anaerobic Culture - Final No anaerobic bacteria isolated. 05/19/22 14:30 Blood Culture (Wb) - Port Blood Culture - Final No growth in 5 days. 05/19/22 13:45 Blood Culture (Wb) - Port Blood Culture - Final No growth in 5 days. 05/20/22 17:40 Sputum, Induced/Lukens Gram Stain - Final 05/20/22 17:40 Sputum, Induced/Lukens Respiratory Culture - Final Escherichia coli 05/19/22 22:20 Transtracheal Aspirate Gram Stain - Final 05/19/22 22:20 Transtracheal Aspirate Respiratory Culture - Final Escherichia coli 05/20/22 04:25 Urine Catheter - Knight Urine Culture - Final Culture exhibits no growth. 05/20/22 04:25 Urine Catheter - Knight Legionella Antigen - Final 05/20/22 04:25 Urine Catheter - Knight Streptococcus pneumoniae Antigen (M - Final 05/19/22 22:20 Mucosa - Nasopharyngeal Respiratory Panel (PCR) - Final Rhythm Strip Rhythm Strip: A flutter Rate: 92 Ectopy: None Physical Exam Narrative General: Intubated HEENT: Atraumatic Eyes: Eyes open and looking around Neck: Supple Respiratory: Mechanically ventilated, Cardiovascular: Tachycardic GI: nondistended Extremities: Extremities wrapped Musculoskeletal: With not following commands to squeeze hands but easily aroused Neuro: Unable to participate in neuro exam due to intubated and sedated Skin: Chronic right lower leg changes Psych: Moves but not purposefully Assessment & Plan Assessment/Plan (1) Toxic metabolic encephalopathy: (2) Acute on chronic respiratory failure with hypoxia and hypercapnia: (3) Anemia: (4) Gram-negative bacteremia: PLAN: Plan #Acute hypoxic respiratory failure due to HFpEF and GNR and staph hemolyticus pneumonia -Had been intubated in the ICU in the beginning of her hospital stay w/ ecoli pneumonia but completed a course of meropenem and was started on Lasix and ultimately was able to be extubated and sent to the floor -Yesterday 06/04 she had increasing oxygen requirements and required reintubation -Remains intubated and sedated -Did have dysphagia prior to reintubation and PEG tube was recommended, will need to revisit this pending progress -Follow repeat cultures, ID reconsulted for eval -Vancomycin restarted -Remains on ipratropium nebs -06/06: Respiratory culture growing staph hemolyticus sensitive to vancomycin as well as a gram-negative marita that is awaiting speciation. On vancomycin, infectious disease following. Did have a wound and tissue specimen from her leg yesterday that shows 2+ gram-positive cocci in clusters, culture pending. Blood cultures pending. Additionally is having diarrhea, C. difficile pending. -06/07: C. difficile PCR positive but antigen and toxin negative. Wound with staph hemolyticus, sputum also with staph hemolyticus and gram-negative rods which speciation is still pending, blood cultures pending -06/08: Leg wound with Staphylococcus hemolyticus and Enterococcus faecium. On IV Cipro. She will be challenged with diuretics today #Hypernatremia -Free water flushes have been increased -Challenge with diuretics when appropriate -06/07: Sodium 149 today, to be challenged with diuretics, is up in weight today. Continue to monitor daily weights and I's and O's -06/08: Improving #Thrombocytopenia -Widely variable during admission -Down to 89, likely 2/2 infection and critical illness, given additional worsening anemia, will obtain hemolysis and DIC labs -Monitor for need to hold pharmacologic DVT prophylaxis -06/08: Has been fairly similar in the past several days, continue to monitor #MIKE on CKD stage IIIb -Had resolved but creatinine slowly increasing again and is 1.20 today, enteral feeds on board -Hold IV diuresis, cannot rule out needing gentle hydration pending progress -06/06: Worsening kidney function, treat underlying infection and provide blood pressure support as necessary, diuretics when appropriate -06/07: Slightly improved today -06/08: Continues to improve #Type 2 diabetes mellitus -Glucose checks and sliding scale insulin -06/06: Glucose increasing, likely secondary to infection and possibly now tube feeding with increased nutrition, continue sliding scale insulin and treat underlying cause and if persists can further adjust insulin #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 Intact dressing over stump -06/06: stump cx growing gram positive cocci, culture pending, ID on board #Septic shock due to ESBL E. coli?resolved -ID has been following, completed vancomycin and meropenem courses -Had been off of vasopressors prior to re intubation #Left upper extremity wound infection -Culture grew Pseudomonas and enteric coccus as well as Staph epidermidis and staph hemolyticus -Had been seen by infectious disease and completed meropenem course -06/08: Leg wound with Staphylococcus hemolyticus and Enterococcus faecium. On IV Cipro. #Afib -On po amio #Chronic anemia -Monitor, transfuse for hgb <7 -Hemoglobin 9.1, overall fairly stable and no evidence of bleeding at this time -06/06: Hemoglobin 8, has had significant variation in hemoglobin string was hospitalization, no active evidence of bleeding, will monitor closely and transfuse as warranted #Hx CAD s/p stent -asa and statin #Hypothyroidism -Continue Synthroid #DVT ppx: Heparin subcu Coco Romero MD Time spent in the patient's overall evaluation,decision-making process, review of diagnostic data, adjustment of management, discussion with other providers, nursing nursing and ancillary staff involved in patient's care documentation, 30 minutes Charges/Coding Visit Charges Inpatient E&M: 78317 Subs Hosp L2
[2022-06-08] MEDS: Propofol 10MG/Ml 1,000 MG/100 ML Bottle 8.9 MG CONT INF ×2 (08:42→17:11)
[2022-06-08] MEDS: Furosemide 40 MG/4 ML Vial IV (10:06)
[2022-06-08] MEDS: Chlorhexidine 15 ML PO ×2 (10:06→21:13)
[2022-06-08] MEDS: Aspirin 81 MG TAB.CHEW NG (10:10)
[2022-06-08] MEDS: Senna/Docusate Sodium 1 Tablet 2 TABLET NG ×2 (10:10→21:17)
[2022-06-08] MEDS: Amiodarone 200 MG Tablet NG ×2 (10:11→21:14)
[2022-06-08] MEDS: Paroxetine 20 MG Tablet NG (10:11)
[2022-06-08] MEDS: Menthol/Lanolin/Calamine/Znox 113 GM Tube 1 APPLIC TOPICAL ×2 (10:11→21:12)
[2022-06-08] MEDS: Juven (unflavored) Packet 1 PACKET GT ×2 (10:11→17:14)
--- NOTE | 2022-06-08 10:24 | PCM.PN.ID ---
Physical Exam Narrative On vent, no fever Const no apparent distress Resp Effort and Inspection: mechanically ventilated Cardio regular rhythm Rate: tachycardic GI soft to palpation, non-tender and non-distended Skin Skin Narrative: L stump incision less red ID ID: Route of nutrition/ use of supplements: [] Nutritional Intake: [] IV Site: [] Knight Catheter: [] Assessment & Plan Assessment/Plan (1) Septic shock: PLAN: On vent and remains off pressor. On vanc for MR-CoNS L stump infection. Sputum cx with MR-CoNS and CRE pseudomonas. 06/07 started iv cipro. Temp better. L AKA incision less red. Will follow
--- NOTE | 2022-06-08 10:27 | CASEMGMT ---
Addendum entered by Lluvia Molina 06/08/22 15:25: No return call to from Chava. SW placed call to alternate HCPOA pt's son Judd Pavon. Judd states that he and Chava work for the same employer and do not get off work until 3:30 and this is why they did not come in for the meeting yesterday. Judd states that their employer would allow them to do a video call while they are at work and they would be agreeable to this tomorrow. Physician is agreeable and appointment set for 2pm on 06/09. Imani Arnett, infrastructure manager notified and to set up meeting. JAYY Healy Original Note: Social Work Family did not come to meeting that was scheduled for yesterday. Per Physician, family meeting still warrented to discuss goals of care. Phone call placed to HCPOA/son Chava and VM left requesting return call. JAYY Tijerina
[2022-06-08] MEDS: Insulin Glargine-YFGN 100 UNIT/ML Pen SC (12:26)
[2022-06-08] MEDS: Ciprofloxacin 400 MG/200 ML BAG 200 MG IV ×2 (12:26→21:09)
[2022-06-08] MEDS: Metoclopramide 10 MG/2 ML Vial 5 MG IV ×3 (12:31→23:50)
[2022-06-08 12:36] LABS: Bedside Glucose 144 mg/dL (74-106)
[2022-06-08] MEDS: Polyethylene Glycol 3350 17 GM PACKET NG (15:03)
[2022-06-08] MEDS: Vital AF 1.2 Cal Liquid 1,000 ML 10 ML GT (15:10)
[2022-06-08 19:11] LABS: Bedside Glucose 152 mg/dL (74-106)
--- NOTE | 2022-06-08 19:15 | NURSING ---
Propofol turned down d/t BP MAP 65
--- NOTE | 2022-06-08 21:00 | NURSING ---
Propofol turned down d/t BP MAP 64.
[2022-06-09] VITALS (56 sets, daily range): BP systolic 63–148; BP diastolic 43–85; PULSE 20–137; RESP 14–21; TEMP 36.8–37.6; O2SAT 93–106; BMI 36.3
[2022-06-09 00:06] LABS: Bedside Glucose 155 mg/dL (74-106)
[2022-06-09] MEDS: Propofol 10MG/Ml 1,000 MG/100 ML Bottle 3 MG CONT INF (00:49)
[2022-06-09] MEDS: CHLORHEXIDINE GLUC 2% CLOTH 1 EACH TOWELETTE TOPICAL (01:14)
[2022-06-09] MEDS: Ipratropium 0.5 MG/2.5 ML SOLUTION INHALATION ×4 (01:14→18:55)
--- NOTE | 2022-06-09 04:04 | NURSING ---
Fentanyl turned down to 25mcg and propofol turned off for SAT.
[2022-06-09 05:12] LABS: Absolute Lymphocyte Count 1.15 X10^3/uL (0.83-4.51); Absolute Neutrophil Count 2.6 X10^3/uL (2.0-7.7); Basophil# 0.02 X10^3/uL; Basophil% 0.4 % (0-1); Eosinophils% 18.6 % (0-5); Hematocrit 26.8 % (37-47); Hemoglobin 8.3 g/dL (12.0-15.0); Lymphocyte # 1.15 X10^3/ul (0.83-4.51); Lymphocyte % 21.3 % (19-41); Mean Corpuscular Hgb 29.3 pg (27.0-32.0); Mean Corpuscular Volume 94.7 fL (81-99); Mean Platelet Vol. 12.5 fl (6.2-12.0); Monocyte# 0.65 X10^3/uL; Monocyte% 12.1 % (0-10); NRBC Flagged by Analyzer 0 % (0-5); Neutrophil # 2.56 X10^3/uL (2.7-7.7); Neutrophil % 47.4 % (47-70); POSITIVE COUNT YES; Platelet Count 95 K/mm3 (150-450); RBC Distribution Width CV 17.2 % (11.6-14.6); RBC Distribution Width SD 58.9 fl (35.1-43.9); Red Blood Count 2.83 M/mm3 (4.2-5.4); White Blood Count 5.4 K/mm3 (4.4-11.0)
[2022-06-09] MEDS: Heparin Injection (Vial) 5,000 UNIT/ML VIAL 5000 UNIT SC ×3 (05:21→21:55)
[2022-06-09] MEDS: Nystatin Powder 15gm Bottle 1 APPLIC TOPICAL ×3 (05:22→21:40)
[2022-06-09] MEDS: Levothyroxine 125 MCG Tablet GT (05:22)
[2022-06-09] MEDS: TITRATION PARAMETER CHANGE 1 EACH IV (05:22)
[2022-06-09] MEDS: Metoclopramide 10 MG/2 ML Vial 5 MG IV ×3 (05:24→17:51)
[2022-06-09] MEDS: 0.9% Saline Lock 10 ML Syringe IV (05:25)
[2022-06-09 05:51] LABS: Vancomycin, Random Level 34.1 ug/mL (0.0-15.0)
[2022-06-09 06:03] LABS: ALB/GLOB Ratio 0.3 RATIO (0.9-2.4); AST(SGOT) 12 U/L (15-37); Alanine Aminotransfer ALT/SGPT 7 U/L (13-56); Albumin, Serum 1.2 g/dL (3.2-5.0); Alkaline Phosphatase 116 U/L (45-117); Anion Gap 2 (5-15); BUN 56 mg/dL (7-18); BUN/Creat Ratio 45.9 RATIO (10-20); Calcium,Total 7.7 mg/dL (8.5-10.1); Chloride 117 mmol/L (98-107); Creatinine, Serum 1.22 mg/dL (0.55-1.02); EST Glomerular Filtration Rate 47 mL/min (>60); Est Glom Filt Rate - Afr Amer 57 mL/min (>60); Estimated Creatinine Clearance 39.17 ml/min; Globulin 3.7 g/dL (2.2-4.2); Glucose 154 mg/dL (74-106); Potassium 3.4 mmol/L (3.5-5.1); Protein, Total 4.9 g/dL (6.4-8.2); Sodium Level 144 mmol/L (136-145)
--- NOTE | 2022-06-09 06:33 | PCM.RX.CS ---
Consult Pharmacy has been consulted to manage selected antiobiotic: Vancomycin Type of Consult: Follow-up Labs: Sodium 144 mmol/L (136-145) 06/09/22 04:50 Potassium 3.4 mmol/L (3.5-5.1) L 06/09/22 04:50 Chloride 117 mmol/L (98-107) H 06/09/22 04:50 Carbon Dioxide 25.0 mmol/L (21.0-32.0) 06/09/22 04:50 Anion Gap 2 (5-15) L 06/09/22 04:50 BUN 56 mg/dL (7-18) H 06/09/22 04:50 Creatinine 1.22 mg/dL (0.55-1.02) H 06/09/22 04:50 Est GFR (MDRD) Af Amer 57 mL/min (>60) L 06/09/22 04:50 Est GFR (MDRD) Non-Af 47 mL/min (>60) L 06/09/22 04:50 BUN/Creatinine Ratio 45.9 RATIO (10-20) H 06/09/22 04:50 Glucose 154 mg/dL (74-106) H 06/09/22 04:50 Vancomycin Trough 43.9 ug/mL (5.0-15.0) H 06/07/22 03:55 Random Vancomycin 34.1 ug/mL (0.0-15.0) H 06/09/22 04:50 Microbiology: Microbiology 06/05/22 03:52 Wound - Leg, Left Gram Stain - Final 06/05/22 03:52 Wound - Leg, Left Wound Culture - Preliminary Staphylococcus haemolyticus Enterococcus faecium 06/04/22 22:25 Blood Culture (Wb) - Arm Left Blood Culture - Preliminary No growth in 48 hours. 06/04/22 18:30 Blood Culture (Wb) - Pic Blood Culture - Preliminary No growth in 48 hours. 06/04/22 13:05 Sputum, Induced/Lukens Gram Stain - Final 06/04/22 13:05 Sputum, Induced/Lukens Respiratory Culture - Final Staphylococcus haemolyticus Pseudomonas aeruginosa 06/04/22 20:00 Urine Catheter - Catheter Urine Culture - Final Culture exhibits no growth. 06/05/22 16:40 Stool C. difficile GDH Antigen & Toxins - Final 06/05/22 16:40 Stool C. difficile DNA Amplification - Final 05/28/22 11:30 Suture Gram Stain - Final 05/28/22 11:30 Suture Wound Culture - Final Vancomycin Resist. E. faecium Staphylococcus haemolyticus 05/24/22 06:35 Wound - Arm Left Gram Stain - Final 05/24/22 06:35 Wound - Arm Left Wound Culture - Final Pseudomonas aeruginosa Staphylococcus haemolyticus Staphylococcus epidermidis 05/24/22 06:35 Wound - Arm Left Anaerobic Culture - Final No anaerobic bacteria isolated. 05/19/22 14:30 Blood Culture (Wb) - Port Blood Culture - Final No growth in 5 days. 05/19/22 13:45 Blood Culture (Wb) - Port Blood Culture - Final No growth in 5 days. 05/20/22 17:40 Sputum, Induced/Lukens Gram Stain - Final 05/20/22 17:40 Sputum, Induced/Lukens Respiratory Culture - Final Escherichia coli 05/19/22 22:20 Transtracheal Aspirate Gram Stain - Final 05/19/22 22:20 Transtracheal Aspirate Respiratory Culture - Final Escherichia coli 05/20/22 04:25 Urine Catheter - Knight Urine Culture - Final Culture exhibits no growth. 05/20/22 04:25 Urine Catheter - Knight Legionella Antigen - Final 05/20/22 04:25 Urine Catheter - Knight Streptococcus pneumoniae Antigen (M - Final 05/19/22 22:20 Mucosa - Nasopharyngeal Respiratory Panel (PCR) - Final Weight used for dosin.8 kg Estimated Creatinine Clearance: 39 Goal Trough: 15-20 mcg/mL Pharmacy Plan for Drug Dosing: Random vancomycin level drawn with a.m. labs was still elevated, at 34.1. Will continue holding doses until level falls below 20 mg/L. Another random level will be drawn 06/11/22 with a.m. labs to determine further dosing. Pharmacy Service will continue to monitor and adjust dosing as required. Follow-Up Labs: Trough Vancomycin - random Labs to be done on [date and time ordered]: 06/11/22 @0600
--- NOTE | 2022-06-09 07:55 | CPS ---
Per Dr Mcwilliams, switched pt back to AC/VC
--- NOTE | 2022-06-09 08:27 | PN.CC_ITS ---
Assessment & Plan Assessment/Plan (1) Septic shock: PLAN: Plan RECOMMENDATIONS: 1. Continue assist-control mode mechanical ventilation. Wean FiO2 and PEEP to maintain saturations at or above 90%. 2. Appreciate ID input. On contact precautions. Now growing VRE 3. Continue to challenge with diuretics and Reglan 4. Attempt to discontinue propofol 5. Continue appropriate ICU prophylaxis. 6. Continue to attempt family communication 7. Potentially prepare for trach and PEG if family wishes to remain aggressive IMPRESSIONS: 1. Septic shock Resolved. Patient does have a history of ESBL E. coli in this hospita lization. Patient has had some liquid bowel movements, but is not having any fever or leukocytosis. Patient did have some hypotension following intubation, but this appears to be resolved. ID is following and cultures are noted. Defer antibiotics to infectious disease. Patient with multiple MDRO organisms 2. Encephalopathy Tolerating sedation breaks better. Most likely related to acute CO2 retention. It is unclear as to whether the patient had access to a BiPAP at her nursing facility and whether or not it was being utilized. Patient continues to fail to use BiPAP following extubation in the hospital. Failure to use BiPAP will likely lead to recurrent metabolic encephalopathy secondary to elevated CO2 levels. 3. Acute on chronic combined respiratory failure Patient did grow ESBL E. coli in her sputum indicating pneumonia on presentation as an etiology of her initial respiratory failure. Patient CO2 retention is much improved following intubation. Plan to continue scheduled bronchodilators over concerns for underlying obstructive lung disease. We will attempt gentle diuresis today. It does not appear the patient was using BiPAP with sleep after extubation. Given protracted intubation status with only a mary ann ef interruption, patient would likely benefit from a trach and PEG to allow for medical stabilization and recovery. Clinical suspicion is that if patient is not going to tolerate nocturnal ventilation, long-term prognosis is extremely guarded. We will discuss with family today. Therapeutic options appear to be hospice, extubation with no reintubation or proceeding with a trach/PEG. Repeat intubation increases the risk for irreversible tracheal stenosis and patient has already had a protracted intubation status. 4. Acute on chronic kidney disease Stable, but patient is developing hypernatremia and hyperchloremia. We will continue tube feeds with free water flushes. Most likely prerenal in etiology in the setting of #1. Creatinine has worsened recently, likely secondary to decreased perfusion with acidosis. We will plan to continue to monitor urine output for now. No current indication for renal replacement therapy. 5. 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 Continue to monitor H&H daily. Transfuse if hemoglobin drops below 7 g/dL. We will transfuse blood today. Continue PPI therapy as ordered. Sutures on AKA appear to be holding at this time despite anasarca. Will initiate Reglan Addendum 2:32 PM: Patient's blood pressures have remained marginal through the day. This does appear to be related to sedation. Attempted a family meeting by Shalom, but technical issues ended up having a group call instead. Both the patient's sons were involved along with social work, bedside nurse and seaport planning manager. Reviewed multiple options moving forward including palliative extubation, extubation without reintubation and trach and PEG. After review the risks, benefits and alternatives, family is electing to remain aggressive. They understand that this will require 2 separate surgical procedures and have agreed to proceed with a trach and PEG. They understand that the patient may require the supportive devices for the rest of her life, but states that she had told them before her first intubation and she did not want to give up. Consults will be placed to surgery and ENT with anticipation of intervention early next week and possible LTAC following. TIME: 77 minutes of critical care time, independent of procedures, was spent addressing the patient septic shock, encephalopathy, acute on chronic combined respiratory failure, acute on chronic kidney disease, review of all data and collaboration with the care team. Subjective Subjective Patient did okay overnight. Patient did have to be reinitiated on pressors overnight, but this appears to be related to sedation as it was able to be discontinued with sedation holiday. Heart rates have been marginally controlled. Patient was able to tolerate a 1 hour spontaneous breathing trial this morning. Reportedly there is to be a [employer] family meeting at 2 PM today. Objective Data Objective Data Vital Signs: Vital Signs Temp Pulse Resp BP Pulse Ox O2 Del Method O2 Flow Rate 36.9 C 126 H 20 H 117/67 97 Mechanical Ventilator 10 06/09/22 06:00 06/09/22 07:00 06/09/22 07:00 06/09/22 07:00 06/09/22 07:00 06/09/22 07:00 06/04/22 12:19 FiO2 40 06/09/22 07:00 Oxygen Flow Rate (L/min) 10 Oxygen Delivery Method Mechanical Ventilator Weight: 98.8 kg Body Mass Index (BMI) 36.3 Intake & Output: Intake and Output for Last 24 Hours 06/07/22 06/08/22 06/09/22 23:59 23:59 23:59 Intake Total 2756.95 / 3162.85 2222.36 / 2434.11 933.94 / 933.94 Output Total 1775 / 2200 1750 / 2000 550 / 550 Balance 981.95 / 962.85 472.36 / 434.11 383.94 / 383.94 Lab / Micro Data Attestation: I reviewed the patient's lab results. Result Diagrams: 06/09/22 04:50 06/09/22 04:50 Labs: Laboratory Results - last 24 hr 06/08/22 12:13: POC Glucose 144 H 06/08/22 17:08: POC Glucose 152 H 06/08/22 23:42: POC Glucose 155 H 06/09/22 04:50: WBC 5.4, RBC 2.83 L, Hgb 8.3 L, Hct 26.8 L, MCV 94.7, MCH 29.3, MCHC 31.0 L, RDW Std Deviation 58.9 H, RDW Coeff of Magen 17.2 H, Plt Count 95 L, MPV 12.5 H, Immature Gran % (Auto) 0.200, Neut % (Auto) 47.4, Lymph % (Auto) 21.3, [place] % (Auto) 12.1 H, Eos % (Auto) 18.6 H, Baso % (Auto) 0.4, Absolute Neuts (auto) 2.6, Absolute Lymphs (auto) 1.15, Nucleated RBC % 0 06/09/22 04:50: Sodium 144, Potassium 3.4 L, Chloride 117 H, Carbon Dioxide 25.0, Anion Gap 2 L, BUN 56 H, Creatinine 1.22 H, Estim Creat Clear Calc 39.17, Est GFR (MDRD) Af Amer 57 L, Est GFR (MDRD) Non-Af 47 L, BUN/Creatinine Ratio 45.9 H, Glucose 154 H, Calcium 7.7 L, Total Bilirubin 0.60, AST 12 L, ALT 7 L, Alkaline Phosphatase 116, Total Protein 4.9 L, Albumin 1.2 L, Globulin 3.7, Albumin/Globulin Ratio 0.3 L 06/09/22 04:50: Random Vancomycin 34.1 H Micro: Microbiology 06/05/22 03:52 Wound - Leg, Left Gram Stain - Final 06/05/22 03:52 Wound - Leg, Left Wound Culture - Final Staphylococcus haemolyticus Vancomycin Resist. E. faecium 06/04/22 22:25 Blood Culture (Wb) - Arm Left Blood Culture - Preliminary No growth in 48 hours. 06/04/22 18:30 Blood Culture (Wb) - Pic Blood Culture - Preliminary No growth in 48 hours. 06/04/22 13:05 Sputum, Induced/Lukens Gram Stain - Final 06/04/22 13:05 Sputum, Induced/Lukens Respiratory Culture - Final Staphylococcus haemolyticus Pseudomonas aeruginosa 06/04/22 20:00 Urine Catheter - Catheter Urine Culture - Final Culture exhibits no growth. 06/05/22 16:40 Stool C. difficile GDH Antigen & Toxins - Final 06/05/22 16:40 Stool C. difficile DNA Amplification - Final 05/28/22 11:30 Suture Gram Stain - Final 05/28/22 11:30 Suture Wound Culture - Final Vancomycin Resist. E. faecium Staphylococcus haemolyticus 05/24/22 06:35 Wound - Arm Left Gram Stain - Final 05/24/22 06:35 Wound - Arm Left Wound Culture - Final Pseudomonas aeruginosa Staphylococcus haemolyticus Staphylococcus epidermidis 05/24/22 06:35 Wound - Arm Left Anaerobic Culture - Final No anaerobic bacteria isolated. 05/19/22 14:30 Blood Culture (Wb) - Port Blood Culture - Final No growth in 5 days. 05/19/22 13:45 Blood Culture (Wb) - Port Blood Culture - Final No growth in 5 days. 05/20/22 17:40 Sputum, Induced/Lukens Gram Stain - Final 05/20/22 17:40 Sputum, Induced/Lukens Respiratory Culture - Final Escherichia coli 05/19/22 22:20 Transtracheal Aspirate Gram Stain - Final 05/19/22 22:20 Transtracheal Aspirate Respiratory Culture - Final Escherichia coli 05/20/22 04:25 Urine Catheter - Knight Urine Culture - Final Culture exhibits no growth. 05/20/22 04:25 Urine Catheter - Knight Legionella Antigen - Final 05/20/22 04:25 Urine Catheter - Knight Streptococcus pneumoniae Antigen (M - Final 05/19/22 22:20 Mucosa - Nasopharyngeal Respiratory Panel (PCR) - Final Rhythm Strip Rhythm Strip: A flutter Rate: 118 Ectopy: None Physical Exam Const Constitutional Narrative: Intubated, sedated and mechanically ventilated. No ventilator dyssynchrony. RASS 0. Anasarca. HEENT normocephalic and head/scalp atraumatic Eyes PERRL and conjunctivae normal Neck supple General: trachea midline and CVC in place Chest inspection of chest normal Resp Auscultation: diminished lung sounds; Negative for rales, rhonchi or wheezes Cardio regular rate, S1 normal heart sound, S2 normal heart sound, no murmurs, no rub and no gallops Rate: tachycardic Rhythm: abnormal rhythm GI normal to inspection, nondistended, normoactive bowel sounds Extremity Extremity Narrative: Diffuse minor ecchymotic areas in IV sites. Some erythema at the stump. Skin General Skin Exam: venous stasis and dermatitis Neuro moves all extremities and no focal motor deficits Psych Mood & Affect: flat affect Charges/Coding Procedures Hospitalists Procedures: 58805 Critial Care 1st Hr Multi [facility] Codes Hospitalists' Procedures Procedures: 51476 Critial Care Addl 30 Min
--- NOTE | 2022-06-09 09:21 | PN.HOSP_ITS ---
Reason for Visit Reason for Visit: Diagnoses Sepsis, unspecified organism (05/19/22) Anemia, unspecified (05/19/22) Thrombocytopenia, unspecified (05/19/22) Type 2 diabetes mellitus with foot ulcer (05/19/22) Other toxic encephalopathy (05/19/22) Encephalopathy, unspecified (05/19/22) Unspecified atrial fibrillation (05/19/22) Pneumonia, unspecified organism (05/19/22) Chronic obstructive pulmonary disease with (acute) exacerbation (05/19/22) Acute and chronic respiratory failure with hypoxia (05/19/22) Acute and chronic respiratory failure with hypercapnia (05/19/22) Non-pressure chronic ulcer of other part of unspecified foot with unspecified severity (05/19/22) Acute kidney failure, unspecified (05/19/22) Generalized edema (05/19/22) Severe sepsis without septic shock (05/19/22) Severe sepsis with septic shock (05/19/22) Bacteremia (05/19/22) Dependence on respirator [ventilator] status (05/19/22) Subjective Subjective Patient intubated and ventilated, awake and following commands this a.m. Objective Data Objective Data Vital Signs: Vital Signs Temp Pulse Resp BP Pulse Ox O2 Del Method O2 Flow Rate 98.4 F 113 H 17 91/65 97 Mechanical Ventilator 10 06/09/22 08:00 06/09/22 08:00 06/09/22 08:00 06/09/22 08:00 06/09/22 08:00 06/09/22 08:00 06/04/22 12:19 FiO2 35 06/09/22 08:00 Oxygen Flow Rate (L/min) 10 Oxygen Delivery Method Mechanical Ventilator Weight: 98.8 kg Body Mass Index (BMI) 36.3 Intake & Output: Intake and Output for Last 24 Hours 06/07/22 06/08/22 06/09/22 23:59 23:59 23:59 Intake Total 2756.95 / 3162.85 2222.36 / 2434.11 948.40 / 948.40 Output Total 1775 / 2200 1750 / 2000 550 / 550 Balance 981.95 / 962.85 472.36 / 434.11 398.40 / 398.40 Lab / Micro Data Result Diagrams: 06/09/22 04:50 06/09/22 04:50 Labs: Laboratory Results - last 24 hr 06/08/22 12:13: POC Glucose 144 H 06/08/22 17:08: POC Glucose 152 H 06/08/22 23:42: POC Glucose 155 H 06/09/22 04:50: WBC 5.4, RBC 2.83 L, Hgb 8.3 L, Hct 26.8 L, MCV 94.7, MCH 29.3, MCHC 31.0 L, RDW Std Deviation 58.9 H, RDW Coeff of Magen 17.2 H, Plt Count 95 L, MPV 12.5 H, Immature Gran % (Auto) 0.200, Neut % (Auto) 47.4, Lymph % (Auto) 21.3, [place]ard % (Auto) 12.1 H, Eos % (Auto) 18.6 H, Baso % (Auto) 0.4, Absolute Neuts (auto) 2.6, Absolute Lymphs (auto) 1.15, Nucleated RBC % 0 06/09/22 04:50: Sodium 144, Potassium 3.4 L, Chloride 117 H, Carbon Dioxide 25.0, Anion Gap 2 L, BUN 56 H, Creatinine 1.22 H, Estim Creat Clear Calc 39.17, Est GFR (MDRD) Af Amer 57 L, Est GFR (MDRD) Non-Af 47 L, BUN/Creatinine Ratio 45.9 H, Glucose 154 H, Calcium 7.7 L, Total Bilirubin 0.60, AST 12 L, ALT 7 L, Alkaline Phosphatase 116, Total Protein 4.9 L, Albumin 1.2 L, Globulin 3.7, Albumin/Globulin Ratio 0.3 L 06/09/22 04:50: Random Vancomycin 34.1 H Micro: Microbiology 06/05/22 03:52 Wound - Leg, Left Gram Stain - Final 06/05/22 03:52 Wound - Leg, Left Wound Culture - Final Staphylococcus haemolyticus Vancomycin Resist. E. faecium 06/04/22 22:25 Blood Culture (Wb) - Arm Left Blood Culture - Preliminary No growth in 48 hours. 06/04/22 18:30 Blood Culture (Wb) - Pic Blood Culture - Preliminary No growth in 48 hours. 06/04/22 13:05 Sputum, Induced/Lukens Gram Stain - Final 06/04/22 13:05 Sputum, Induced/Lukens Respiratory Culture - Final Staphylococcus haemolyticus Pseudomonas aeruginosa 06/04/22 20:00 Urine Catheter - Catheter Urine Culture - Final Culture exhibits no growth. 06/05/22 16:40 Stool C. difficile GDH Antigen & Toxins - Final 06/05/22 16:40 Stool C. difficile DNA Amplification - Final 05/28/22 11:30 Suture Gram Stain - Final 05/28/22 11:30 Suture Wound Culture - Final Vancomycin Resist. E. faecium Staphylococcus haemolyticus 05/24/22 06:35 Wound - Arm Left Gram Stain - Final 05/24/22 06:35 Wound - Arm Left Wound Culture - Final Pseudomonas aeruginosa Staphylococcus haemolyticus Staphylococcus epidermidis 05/24/22 06:35 Wound - Arm Left Anaerobic Culture - Final No anaerobic bacteria isolated. 05/19/22 14:30 Blood Culture (Wb) - Port Blood Culture - Final No growth in 5 days. 05/19/22 13:45 Blood Culture (Wb) - Port Blood Culture - Final No growth in 5 days. 05/20/22 17:40 Sputum, Induced/Lukens Gram Stain - Final 05/20/22 17:40 Sputum, Induced/Lukens Respiratory Culture - Final Escherichia coli 05/19/22 22:20 Transtracheal Aspirate Gram Stain - Final 05/19/22 22:20 Transtracheal Aspirate Respiratory Culture - Final Escherichia coli 05/20/22 04:25 Urine Catheter - Knight Urine Culture - Final Culture exhibits no growth. 05/20/22 04:25 Urine Catheter - Knight Legionella Antigen - Final 05/20/22 04:25 Urine Catheter - Knight Streptococcus pneumoniae Antigen (M - Final 05/19/22 22:20 Mucosa - Nasopharyngeal Respiratory Panel (PCR) - Final Rhythm Strip Rhythm Strip: A flutter Rate: 118 Ectopy: None Physical Exam Narrative General: Intubated HEENT: Atraumatic Eyes: Eyes open and looking around Neck: Supple Respiratory: Mechanically ventilated, no wheezes Cardiovascular: Tachycardic GI: nondistended Extremities: Extremities wrapped, does have pitting edema somewhat diffusely Musculoskeletal: Following commands and moving extremities Neuro: Awake, trying to mouth words, following commands Skin: Chronic right lower leg changes Psych: Moving purposefully, attempting to be cooperative Assessment & Plan Assessment/Plan (1) Toxic metabolic encephalopathy: (2) Acute on chronic respiratory failure with hypoxia and hypercapnia: (3) Anemia: (4) Gram-negative bacteremia: PLAN: Plan #Acute hypoxic respiratory failure due to HFpEF and GNR and staph hemolyticus pneumonia * -Had been intubated in the ICU in the beginning of her hospital stay w/ ecoli pneumonia but completed a course of meropenem and was started on Lasix and ultimately was able to be extubated and sent to the floor * -Yesterday 06/04 she had increasing oxygen requirements and required reintubati on * -Remains intubated and sedated * -Did have dysphagia prior to reintubation and PEG tube was recommended, will need to revisit this pending progress * -Follow repeat cultures, ID reconsulted for eval * -Vancomycin restarted * -Remains on ipratropium nebs -06/06: Respiratory culture growing staph hemolyticus sensitive to vancomycin as well as a gram-negative marita that is awaiting speciation. On vancomycin, infectious disease following. Did have a wound and tissue specimen from her leg yesterday that shows 2+ gram-positive cocci in clusters, culture pending. Blood cultures pending. Additionally is having diarrhea, C. difficile pending. -06/07: C. difficile PCR positive but antigen and toxin negative. Wound with staph hemolyticus, sputum also with staph hemolyticus and gram-negative rods whi ch speciation is still pending, blood cultures pending -06/08: Leg wound with Staphylococcus hemolyticus and Enterococcus faecium. On IV Cipro. She will be challenged with diuretics today -06/09: Has improved overall, presently on IV Cipro. Wound growing staph hemolyticus and VRE, ID managing antibiotics #Hypernatremia?resolved -Free water flushes have been increased -Challenge with diuretics when appropriate -06/07: Sodium 149 today, to be challenged with diuretics, is up in weight today. Continue to monitor daily weights and I's and O's -06/08: Improving #Thrombocytopenia -Widely variable during admission -Down to 89, likely 2/2 infection and critical illness, given additional worsening anemia, will obtain hemolysis and DIC labs -Monitor for need to hold pharmacologic DVT prophylaxis -06/08: Has been fairly similar in the past several days, continue to monitor #MIKE on CKD stage IIIb -Had resolved but creatinine slowly increasing again and is 1.20 today, enteral feeds on board -Hold IV diuresis, cannot rule out needing gentle hydration pending progress -06/06: Worsening kidney function, treat underlying infection and provide blood pressure support as necessary, diuretics when appropriate -06/07: Slightly improved today -06/08: Continues to improve #Type 2 diabetes mellitus -Glucose checks and sliding scale insulin -06/06: Glucose increasing, likely secondary to infection and possibly now tube feeding with increased nutrition, continue sliding scale insulin and treat underlying cause and if persists can further adjust insulin -06/09: Doing better with 5 units of long-acting #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 Intact dressing over stump -06/06: stump cx growing gram positive cocci, culture pending, ID on board #Septic shock due to ESBL E. coli?resolved -ID has been following, completed vancomycin and meropenem courses -Had been off of vasopressors prior to re intubation #Left upper extremity wound infection -Culture grew Pseudomonas and enteric coccus as well as Staph epidermidis and staph hemolyticus -Had been seen by infectious disease and completed meropenem course -06/08: Leg wound with Staphylococcus hemolyticus and Enterococcus faecium. On IV Cipro. ID managing -06/09: Leg wound with staph hemolyticus and VRE, ID managing antibiotics #Afib -On po amio #Chronic anemia -Monitor, transfuse for hgb <7 -Hemoglobin 9.1, overall fairly stable and no evidence of bleeding at this time -06/06: Hemoglobin 8, has had significant variation in hemoglobin string was hospitalization, no active evidence of bleeding, will monitor closely and transfuse as warranted #Hx CAD s/p stent -asa and statin #Hypothyroidism -Continue Synthroid #DVT ppx: Heparin subcu Coco Romero MD Time spent in the patient's overall evaluation,decision-making process, review of diagnostic data, adjustment of management, discussion with other providers, nursing nursing and ancillary staff involved in patient's care documentation, 30 minutes Charges/Coding Visit Charges Inpatient E&M: 50618 Subs Hosp L2
[2022-06-09] MEDS: Juven (unflavored) Packet 1 PACKET GT ×2 (10:41→17:51)
[2022-06-09] MEDS: Senna/Docusate Sodium 1 Tablet 2 TABLET NG (10:41)
[2022-06-09] MEDS: Amiodarone 200 MG Tablet NG ×2 (10:41→21:53)
[2022-06-09] MEDS: Aspirin 81 MG TAB.CHEW NG (10:41)
[2022-06-09] MEDS: Chlorhexidine 15 ML PO ×2 (10:41→21:40)
[2022-06-09] MEDS: Menthol/Lanolin/Calamine/Znox 113 GM Tube 1 APPLIC TOPICAL ×2 (10:42→21:41)
[2022-06-09] MEDS: Ciprofloxacin 400 MG/200 ML BAG 200 MG IV ×2 (11:14→21:38)
[2022-06-09] MEDS: Propofol 10MG/Ml 1,000 MG/100 ML Bottle 11.9 MG CONT INF ×2 (11:14→18:15)
--- NOTE | 2022-06-09 11:20 | CASEMGMT ---
Social Work Phone call placed to pt's son Chava to inquire about inviting pts dgts Clover to 2pm meeting today. No return call. SW placed call to Clover and spoke with her about meeting. Clover states she will join zoom meeting and link to meet was sent to Clover. JAYY Tijerina
[2022-06-09] MEDS: Insulin Lispro 100 UNIT/ML INSULN.PEN SC ×2 (12:36→17:51)
[2022-06-09] MEDS: Insulin Glargine-YFGN 100 UNIT/ML Pen SC (12:36)
[2022-06-09] MEDS: Potassium Chloride 20mEq/100mL 20 MEQ/100 ML IV.SOLN. 100 MEQ IV BOLUS ×2 (12:41→14:42)
--- NOTE | 2022-06-09 13:08 | PCM.PN.ID ---
Physical Exam Narrative On vent, back on pressor, no fever Const no apparent distress Resp Effort and Inspection: mechanically ventilated Auscultation: diminished lung sounds Cardio Rate: tachycardic GI soft to palpation, non-tender and non-distended Skin Skin Narrative: no new rash ID ID: Route of nutrition/ use of supplements: [] Nutritional Intake: [] IV Site: [] Knight Catheter: [] Assessment & Plan Assessment/Plan (1) Septic shock: PLAN: On vent and back on low dose pressor. On vanc for MR-CoNS L stump infection. Sputum cx with MR-CoNS and CRE pseudomonas. 06/07 started iv cipro. Temp better. L AKA incision less red. Now wound cx also with VRE; will change vanc to linezolid Will follow
--- NOTE | 2022-06-09 13:50 | CASEMGMT ---
CHRISTELLE CM NOTE: Per Radha @ [facility], pt's insurance requires the followin-day acute care hospital stay 3 failed attempts @ extubation w/the following documentation: How long the trial lasted and reason for putting back on vent. These attempts can be done prior to trach placement or after. She also states they do not have be done on separate days. Per Radha, pt's insurance is not requiring 7-days stay @ hospital post-trach insertion, just as long as the trach is stable. Dr Mcwilliams made aware of above. Aaron BELLN RN CM
[2022-06-09] MEDS: Linezolid 600 MG Tablet GT ×2 (14:43→21:54)
--- NOTE | 2022-06-09 14:46 | CASEMGMT ---
Social Work Meeting held with pt's two son Isabelle on conference call. GREG, RN, Prosthetic Dentist and CM Director present for meeting. Goals of care discussed along with options moving forward. Pt's son states that pt told them I don't want to give up. Sons feel they are honoring pt's wishes by continuing with aggressive treatment and would like to proceed with Trach and Peg placement. Sons made aware that pt cannot [facility] and will need placement at [facility]ACH. RNCM will provide LTACH options to sons at the appropriate time. All family questions answered at time of meeting. Pt's dgt Clover did not join meeting although she was notified. RNCM to followup for LTACH placement. GREG updated the [facility]. JAYY Tijerina
--- NOTE | 2022-06-09 15:24 | CASEMGMT ---
CHRISTELLE WHEELER: CHRISTELLE WHEELER present during family meeting with pt's sons Chava and Judd. See SW documentation. Reviewed LTACH options assistant farm operations manager with pt's sons including available locations. List of in-network LTACH facilities that includes quality and resource use data and consistent with pt's medical needs and geographic preference offered to pt's sons. Pt's son Chava requested the list to be provided to him via email. List from [employer] guide submitted to email [email or web address] as requested. Discussed with CHRISTELLE David CM who will follow-up with additional information related to family touring facilities and subsequent choice. Lauren Arnett RN CM
--- NOTE | 2022-06-09 15:38 | CON.PCM_ITS ---
Assessment & Plan Assessment/Plan (1) On mechanically assisted ventilation: PLAN: 67 year old female with respiratory failure -a tracheostomy has been requested -will attempt to place next week given OR time/availability HPI Consult Data Date of Consult: 06/09/22 HPI Narrative Reason for Consultation: respiratory failure HPI Narrative: SONA WILSON, is a 67 F who presents with respiratory failure. please see medical record for full pulmonary history; she was recently admitted for respiratory failure/sepsis and has had multiple intubations. the current int ubation has lasted 6 days with an unlikely chance she will wean/extubate successfully. a tracheostomy has been requested. [facility] Medical History Acute cervical myofascial strain Acute on chronic respiratory failure with hypoxemia Acute on chronic respiratory failure with hypoxia and hypercapnia Acute respiratory failure with hypoxia Amputated toe of left foot Anemia Anemia Asthma Atherosclerotic heart disease of hoopa coronary artery without angina pectoris Atrial fibrillation Atrial fibrillation Atrial fibrillation with rapid ventricular response CAD (coronary artery disease) CHF (congestive heart failure) Chronic congestive heart failure Chronic heart failure with preserved ejection fraction (HFpEF) Chronic heel ulcer Chronic kidney disease (CKD) stage G3b/A1, moderately decreased glomerular filtration rate (GFR) between 30-44 mL/min/1.73 square meter and albuminuria creatinine ratio less than 30 mg/g Chronic respiratory failure with hypoxia Chronic respiratory failure with hypoxia, on home oxygen therapy Chronic ulcer of great toe of left foot Closed head injury Congestive heart failure (CHF) COPD (chronic obstructive pulmonary disease) Current use of insulin Debility Decubitus ulcer of dorsum of foot, stage 2 Decubitus ulcer of left heel, stage 2 Decubitus ulcer of left heel, stage 3 Decubitus ulcer, heel, left, unstageable Depression Diabetes mellitus with diabetic polyneuropathy Diabetes type 2, controlled Diabetic foot ulcers Diverticulitis Dry gangrene Essential hypertension Former smoker History of amputation of left great toe History of non-ST elevation myocardial infarction (NSTEMI) (02/24/17) Hyperlipidemia Hypoglycemia due to type 1 diabetes mellitus Hypothyroid Morbid obesity Multiple wounds Myocardial infarct Non-rheumatic tricuspid valve insufficiency Nondisplaced fracture of distal phalanx of right great toe, initial encounter for closed fracture Nonrheumatic mitral (valve) insufficiency Obesity Obstructive sleep apnea On home O2 On mechanically assisted ventilation Renal insufficiency Secondary pulmonary arterial hypertension Thrombocytopenia Type 2 diabetes mellitus Vitamin D deficiency Home Medications aspirin 81 mg tablet,delayed release (Adult Aspirin Regimen) 81 mg PO DAILY HEART HEALTH 05/17/21 [History Last Taken 04/25/22 08:30] levothyroxine 100 mcg tablet (Synthroid) 125 mcg PO DAILY THYROID 12/13/21 [History Last Taken 04/26/22 06:00] montelukast 10 mg tablet 10 mg PO QHS ALLERGIES 12/13/21 [History Last Taken 04/25/22 20:58] sennosides 8.6 mg-docusate sodium 50 mg tablet (Senna-S) 1 tab PO BID STOOL SOFTNER 12/13/21 [History Last Taken 04/25/22 20:58] trazodone 100 mg tablet 150 mg PO QHS SLEEP 12/13/21 [History Last Taken 04/25/22 20:58] albuterol sulfate 90 mcg/actuation aerosol inhaler 2 puff inhalation Q6H PRN Shortness Of Breath 12/19/21 [History Last Taken Unknown] ferrous sulfate 325 mg (65 mg iron) tablet (FeroSul) 325 mg PO DAILY ANEMIA 12/28/21 [History Last Taken 04/25/22 11:00] insulin lispro 100 unit/mL subcutaneous pen (Humalog KwikPen (U-100) Insulin) 10 unit subcut TIDAC DIABETES 12/28/21 [History Last Taken 04/25/22 20:40] nystatin 100,000 unit/gram topical powder (Nyamyc) 1 applic topical TID IRRITATION 12/28/21 [History Last Taken 04/25/22 20:58] omeprazole 40 mg capsule,delayed release 40 mg PO BID GERD 12/28/21 [History Las t Taken 04/25/22 20:58] polyethylene glycol 3350 17 gram oral powder packet 17 g PO DAILY CONSTIPATION 12/28/21 [History Last Taken 04/25/22 08:30] paroxetine HCl 20 mg tablet (Paxil) 20 mg PO DAILY MOOD 01/12/22 [History Last Taken 04/26/22 08:30] insulin detemir U-100 100 unit/mL (3 mL) subcutaneous pen (Levemir FlexTouch U- 100 Insulin) 25 unit (0.25 mL) subcut QHS blood sugar #15 mL 02/24/22 [Rx Last Taken 04/24/22 19:30] acetaminophen 325 mg tablet (Tylenol) 650 mg PO Q6H PRN PAIN/FEVER 04/26/22 [History Last Taken 04/26/22 06:00] apixaban 5 mg tablet (Eliquis) 5 mg PO BID BLOOD THINNER 04/26/22 [History Last Taken 04/26/22 08:30] arginine 7 gram-glutam 7 gram-CaHMB 1.5 [id number]-min oral pwd pkt (Say (with collagen)) 1 packet PO BID WOUND HEALING 04/26/22 [History Last Taken 11:00] gabapentin 300 mg capsule 300 mg PO TID NERVE PAIN 04/26/22 [History Last Taken 04/25/22 13:30] mirtazapine 15 mg tablet 15 mg PO QHS MOOD 04/26/22 [History Last Taken 04/25/22 20:58] potassium chloride 20 mEq tablet,extended release(part/cryst) (Klor-Con M) 20 meq PO TID SUPPLEMENT 04/26/22 [History Last Taken 04/26/22 06:00] bumetanide 0.5 mg tablet 1 mg PO TID #0 tabs 05/10/22 [Rx Last Taken Unknown] diltiazem HCl 60 mg tablet 60 mg PO Q6 #0 tabs 05/10/22 [Rx Last Taken Unknown] metoprolol tartrate 25 mg tablet 12.5 mg PO BID #0 tabs 05/10/22 [Rx Last Taken Unknown] Allergy/AdvReac Type Severity Reaction Status Date / Time doxycycline Allergy NEEDS Verified 05/19/22 11:06 FOLLOW-UP latex Allergy NEEDS Verified 05/19/22 11:06 FOLLOW-UP Sulfa (Sulfonamide Allergy Anaphylaxis Verified 05/19/22 11:06 Antibiotics) sulfur dioxide Allergy Anaphylaxis Verified 05/19/22 11:06 oxycodone AdvReac Other Verified 05/19/22 11:06 Family History Grandmother Diabetes Mother Heart disease Surgical History H/O right heart catheterization History of cataract surgery History of coronary artery stent placement (02/24/17) History of heart artery stent Tubal ligation status Social History household members: none housing: other details: [facility]. Smoking Status: Former smoker how long ago did patient quit smokin alcohol intake: former year quit: 1999 substance use type: does not use caffeine: Yes Type: carbonated beverages and tea ROS Review of Systems ROS Unobtainable: due to endotracheal tube Physical Exam Const Constitutional Narrative: intubated/sedated. HEENT HEENT Narrative: neck landmarks palpable, no significant scars. landmarks palpable. Face and Sinus: normal facial exam Nose: external nose normal Mouth: oral and palatal mucosa normal Lab / Micro Data Result Diagrams: 06/09/22 04:50 06/09/22 04:50 Labs: Laboratory Results - last 24 hr 06/08/22 17:08: POC Glucose 152 H 06/08/22 23:42: POC Glucose 155 H 06/09/22 04:50: WBC 5.4, RBC 2.83 L, Hgb 8.3 L, Hct 26.8 L, MCV 94.7, MCH 29.3, MCHC 31.0 L, RDW Std Deviation 58.9 H, RDW Coeff of Magen 17.2 H, Plt Count 95 L, MPV 12.5 H, Immature Gran % (Auto) 0.200, Neut % (Auto) 47.4, Lymph % (Auto) 21.3, Cabell % (Auto) 12.1 H, Eos % (Auto) 18.6 H, Baso % (Auto) 0.4, Absolute Neuts (auto) 2.6, Absolute Lymphs (auto) 1.15, Nucleated RBC % 0 06/09/22 04:50: Sodium 144, Potassium 3.4 L, Chloride 117 H, Carbon Dioxide 25.0, Anion Gap 2 L, BUN 56 H, Creatinine 1.22 H, Estim Creat Clear Calc 39.17, Est GFR (MDRD) Af Amer 57 L, Est GFR (MDRD) Non-Af 47 L, BUN/Creatinine Ratio 45.9 H, Glucose 154 H, Calcium 7.7 L, Total Bilirubin 0.60, AST 12 L, ALT 7 L, Alkaline Phosphatase 116, Total Protein 4.9 L, Albumin 1.2 L, Globulin 3.7, Albumin/Globulin Ratio 0.3 L 06/09/22 04:50: Random Vancomycin 34.1 H Micro: Microbiology 06/05/22 03:52 Wound - Leg, Left Gram Stain - Final 06/05/22 03:52 Wound - Leg, Left Wound Culture - Final Staphylococcus haemolyticus Vancomycin Resist. E. faecium Rhythm Strip Rhythm Strip: A flutter Rate: 118 Ectopy: None
--- NOTE | 2022-06-09 16:18 | CASEMGMT ---
CHRISTELLE WHEELER NOTE: Per Radha @ [facility] they do allow touring of [facility] in [place] and can do this over the weekend. She states she will check on the [place] facility as well. She suggests pt's family contact her to make the arrangements. [facility]. No answer. VM left for her to return call to this RN LIAM. Call placed to pt's son/POA, Chava. He was made aware of above and was provided w/Radha's contact info and also with [facility] contact info to inquire about touring. CHRISTELLE WHEELER to f/u with family Sunday re: if decision has been made re: LTACH preference. Aaron BELLN CHRISTELLE WHEELER
[2022-06-09 17:36] LABS: Bedside Glucose 155 mg/dL (74-106)
[2022-06-09 17:36] LABS: Bedside Glucose 164 mg/dL (74-106)
[2022-06-09] MEDS: Vital AF 1.2 Cal Liquid 1,000 ML 30 ML GT (17:52)
[2022-06-10] VITALS (39 sets, daily range): BP systolic 77–112; BP diastolic 53–70; PULSE 92–132; RESP 10–23; TEMP 37–37.6; O2SAT 82–98; BMI 36.6
[2022-06-10] MEDS: Ipratropium 0.5 MG/2.5 ML SOLUTION INHALATION ×4 (00:45→19:14)
[2022-06-10] MEDS: Metoclopramide 10 MG/2 ML Vial 5 MG IV ×5 (01:00→23:50)
[2022-06-10] MEDS: Insulin Lispro 100 UNIT/ML INSULN.PEN SC ×5 (01:00→23:49)
[2022-06-10 02:05] LABS: Bedside Glucose 203 mg/dL (74-106)
[2022-06-10 04:05] LABS: Absolute Lymphocyte Count 1.15 X10^3/uL (0.83-4.51); Basophil# 0.02 X10^3/uL; Basophil% 0.5 % (0-1); Eosinophil# 0.67 X10^3/uL; Eosinophils% 15.1 % (0-5); Hematocrit 23.4 % (37-47); Hemoglobin 7.2 g/dL (12.0-15.0); Lymphocyte # 1.15 X10^3/ul (0.83-4.51); Lymphocyte % 25.9 % (19-41); Mean Corp Hgb Conc 30.8 g/dL (32-36); Mean Corpuscular Hgb 29.5 pg (27.0-32.0); Mean Corpuscular Volume 95.9 fL (81-99); Mean Platelet Vol. 12.1 fl (6.2-12.0); Monocyte# 0.56 X10^3/uL; Monocyte% 12.6 % (0-10); NRBC Flagged by Analyzer 0 % (0-5); Neutrophil # 2.02 X10^3/uL (2.7-7.7); Neutrophil % 45.4 % (47-70); POSITIVE COUNT YES; Platelet Count 95 K/mm3 (150-450); RBC Distribution Width CV 17.1 % (11.6-14.6); RBC Distribution Width SD 58.9 fl (35.1-43.9); Red Blood Count 2.44 M/mm3 (4.2-5.4); White Blood Count 4.4 K/mm3 (4.4-11.0)
--- NOTE | 2022-06-10 04:11 | NURSING ---
Fentanyl turned down from 150mcg to 25mcg for SAT/SBT.
[2022-06-10 04:24] LABS: ALB/GLOB Ratio 0.3 RATIO (0.9-2.4); AST(SGOT) 11 U/L (15-37); Alanine Aminotransfer ALT/SGPT 9 U/L (13-56); Albumin, Serum 1.1 g/dL (3.2-5.0); Alkaline Phosphatase 110 U/L (45-117); Anion Gap 3 (5-15); BUN 57 mg/dL (7-18); BUN/Creat Ratio 44.2 RATIO (10-20); Calcium,Total 7.6 mg/dL (8.5-10.1); Chloride 117 mmol/L (98-107); Creatinine, Serum 1.29 mg/dL (0.55-1.02); EST Glomerular Filtration Rate 44 mL/min (>60); Est Glom Filt Rate - Afr Amer 53 mL/min (>60); Estimated Creatinine Clearance 37.04 ml/min; Globulin 3.6 g/dL (2.2-4.2); Glucose 210 mg/dL (74-106); Potassium 3.7 mmol/L (3.5-5.1); Protein, Total 4.7 g/dL (6.4-8.2); Sodium Level 144 mmol/L (136-145)
[2022-06-10] MEDS: Heparin Injection (Vial) 5,000 UNIT/ML VIAL 5000 UNIT SC ×3 (05:18→21:50)
[2022-06-10] MEDS: Levothyroxine 125 MCG Tablet GT (05:19)
[2022-06-10] MEDS: 0.9% Saline Lock 10 ML Syringe IV ×2 (05:19→21:51)
[2022-06-10] MEDS: Nystatin Powder 15gm Bottle 1 APPLIC TOPICAL ×3 (05:22→21:50)
--- NOTE | 2022-06-10 07:00 | PN.CC_ITS ---
Assessment & Plan Assessment/Plan (1) Septic shock: PLAN: Plan RECOMMENDATIONS: 1. Continue assist-control mode mechanical ventilation. Wean FiO2 and PEEP to maintain saturations at or above 90%. 2. Appreciate ID input. On contact precautions. Now growing VRE 3. Continue to challenge with diuretics and Reglan 4. Attempt to discontinue propofol. Pressors if needed 5. Continue appropriate ICU prophylaxis. 6. Prepare for trach and PEG early next week 7. Potential transfer to LTAC 48 hours after procedures. IMPRESSIONS: 1. Septic shock Resolved. Patient does have a history of ESBL E. coli in this hospita lization. Patient has had some liquid bowel movements, but is not having any fever or leukocytosis. Patient did have some hypotension following intubation, but this appears to be resolved. ID is following and cultures are noted. Defer antibiotics to infectious disease. Patient with multiple MDRO organisms. Need for pressors appears to correlate with the use of propofol. Anticipate pressors will be discontinued once tracheostomy completed and sedation can be lightened. 2. Encephalopathy Tolerating sedation breaks better. Most likely related to acute CO2 re tention. It is unclear as to whether the patient had access to a BiPAP at her nursing facility and whether or not it was being utilized. Patient continues to fail to use BiPAP following extubation in the hospital. Failure to use BiPAP will likely lead to recurrent metabolic encephalopathy secondary to elevated CO2 levels. 3. Acute on chronic combined respiratory failure Patient did grow ESBL E. coli in her sputum indicating pneumonia on presentation as an etiology of her initial respiratory failure. Patient CO2 retention is much improved following intubation. Plan to continue scheduled bronchodilators over concerns for underlying obstructive lung disease. We will attempt gentle diuresis today. It does not appear the patient was using BiPAP with sleep after extubation. Given protracted intubation status with only a brief interruption, patient would likely benefit from a trach and PEG to allow for medical stabilization and recovery. Family has agreed to this plan. ENT has been consulted for trach and Dr. Mccrary has seen the patient, also will di scuss PEG with him. 4. Acute on chronic kidney disease Stable, but patient is developing hypernatremia and hyperchloremia. We will continue tube feeds with free water flushes. Most likely prerenal in etiology in the setting of #1. Creatinine has worsened recently, likely secondary to decreased perfusion with acidosis. We will plan to continue to monitor urine output for now. No current indication for renal replacement therapy. 5. 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 Continue to monitor H&H daily. Transfuse if hemoglobin drops below 7 g/dL. We will transfuse blood today. Continue PPI therapy as ordered. Sutures on AKA appear to be holding at this time despite anasarca. Will continue Reglan TIME: 33 minutes of critical care time, independent of procedures, was spent addressing the patient septic shock, encephalopathy, acute on chronic combined respiratory failure, acute on chronic kidney disease, review of all data and co llaboration with the care team. Subjective Subjective Patient did okay from a hemodynamic standpoint overnight. Patient is having bowel movements and residuals have improved. Patient did not tolerate spontaneous breathing trial this morning well. Patient's Levophed has been intermittently required depending on amount of sedation. Patient currently on fentanyl only. Objective Data Objective Data Vital Signs: Vital Signs Temp Pulse Resp BP Pulse Ox O2 Del Method O2 Flow Rate 37.1 C 106 H 20 H 84/60 L 95 Mechanical Ventilator 10 06/10/22 04:00 06/10/22 06:48 06/10/22 06:48 06/10/22 04:00 06/10/22 06:48 06/10/22 04:00 06/04/22 12:19 FiO2 30 06/10/22 06:48 Oxygen Flow Rate (L/min) 10 Oxygen Delivery Method Mechanical Ventilator Weight: 99.8 kg Body Mass Index (BMI) 36.6 Intake & Output: Intake and Output for Last 24 Hours 06/08/22 06/09/22 06/10/22 23:59 23:59 23:59 Intake Total 2222.36 / 2434.11 2842.80 / 2858.08 818.59 / 818.59 Output Total 1750 / 2000 950 / 1200 500 / 500 Balance 472.36 / 434.11 1892.80 / 1658.08 318.59 / 318.59 Lab / Micro Data Attestation: I reviewed the patient's lab results. Result Diagrams: 06/10/22 03:55 06/10/22 03:55 Labs: Laboratory Results - last 24 hr 06/09/22 12:33: POC Glucose 155 H 06/09/22 17:16: POC Glucose 164 H 06/10/22 01:39: POC Glucose 203 H 06/10/22 03:55: WBC 4.4, RBC 2.44 L, Hgb 7.2 L, Hct 23.4 L, MCV 95.9, MCH 29.5, MCHC 30.8 L, RDW Std Deviation 58.9 H, RDW Coeff of Magen 17.1 H, Plt Count 95 L, MPV 12.1 H, Immature Gran % (Auto) 0.500, Neut % (Auto) 45.4 L, Lymph % (Auto) 25.9, Meriwether % (Auto) 12.6 H, Eos % (Auto) 15.1 H, Baso % (Auto) 0.5, Absolute Neuts (auto) 2.0, Absolute Lymphs (auto) 1.15, Nucleated RBC % 0 06/10/22 03:55: Sodium 144, Potassium 3.7, Chloride 117 H, Carbon Dioxide 24.0, Anion Gap 3 L, BUN 57 H, Creatinine 1.29 H, Estim Creat Clear Calc 37.04, Est GFR (MDRD) Af Amer 53 L, Est GFR (MDRD) Non-Af 44 L, BUN/Creatinine Ratio 44.2 H , Glucose 210 H, Calcium 7.6 L, Total Bilirubin 0.40, AST 11 L, ALT 9 L, Alkaline Phosphatase 110, Total Protein 4.7 L, Albumin 1.1 L, Globulin 3.6, Albumin/Globulin Ratio 0.3 L Micro: Microbiology 06/04/22 22:25 Blood Culture (Wb) - Arm Left Blood Culture - Final No growth in 5 days. 06/04/22 18:30 Blood Culture (Wb) - Pic Blood Culture - Final No growth in 5 days. 06/05/22 03:52 Wound - Leg, Left Gram Stain - Final 06/05/22 03:52 Wound - Leg, Left Wound Culture - Final Staphylococcus haemolyticus Vancomycin Resist. E. faecium 06/04/22 13:05 Sputum, Induced/Lukens Gram Stain - Final 06/04/22 13:05 Sputum, Induced/Lukens Respiratory Culture - Final Staphylococcus haemolyticus Pseudomonas aeruginosa 06/04/22 20:00 Urine Catheter - Catheter Urine Culture - Final Culture exhibits no growth. 06/05/22 16:40 Stool C. difficile GDH Antigen & Toxins - Final 06/05/22 16:40 Stool C. difficile DNA Amplification - Final 05/28/22 11:30 Suture Gram Stain - Final 05/28/22 11:30 Suture Wound Culture - Final Vancomycin Resist. E. faecium Staphylococcus haemolyticus 05/24/22 06:35 Wound - Arm Left Gram Stain - Final 05/24/22 06:35 Wound - Arm Left Wound Culture - Final Pseudomonas aeruginosa Staphylococcus haemolyticus Staphylococcus epidermidis 05/24/22 06:35 Wound - Arm Left Anaerobic Culture - Final No anaerobic bacteria isolated. 05/19/22 14:30 Blood Culture (Wb) - Port Blood Culture - Final No growth in 5 days. 05/19/22 13:45 Blood Culture (Wb) - Port Blood Culture - Final No growth in 5 days. 05/20/22 17:40 Sputum, Induced/Lukens Gram Stain - Final 05/20/22 17:40 Sputum, Induced/Lukens Respiratory Culture - Final Escherichia coli 05/19/22 22:20 Transtracheal Aspirate Gram Stain - Final 05/19/22 22:20 Transtracheal Aspirate Respiratory Culture - Final Escherichia coli 05/20/22 04:25 Urine Catheter - Knight Urine Culture - Final Culture exhibits no growth. 05/20/22 04:25 Urine Catheter - Knight Legionella Antigen - Final 05/20/22 04:25 Urine Catheter - Knight Streptococcus pneumoniae Antigen (M - Final 05/19/22 22:20 Mucosa - Nasopharyngeal Respiratory Panel (PCR) - Final Rhythm Strip Rhythm Strip: A flutter Rate: 118 Ectopy: None Physical Exam Const Constitutional Narrative: Intubated, sedated and mechanically ventilated. No ventilator dyssynchrony. RASS 0. Anasarca. HEENT normocephalic and head/scalp atraumatic Eyes PERRL and conjunctivae normal Neck supple General: trachea midline and CVC in place Chest inspection of chest normal Resp Auscultation: diminished lung sounds; Negative for rales, rhonchi or wheezes Cardio regular rate, S1 normal heart sound, S2 normal heart sound, no murmurs, no rub and no gallops Rate: tachycardic Rhythm: abnormal rhythm GI normal to inspection, nondistended, normoactive bowel sounds Extremity Extremity Narrative: Diffuse minor ecchymotic areas in IV sites. Some erythema at the stump. Skin General Skin Exam: venous stasis and dermatitis Neuro moves all extremities and no focal motor deficits Psych Mood & Affect: flat affect Charges/Coding Procedures Hospitalists Procedures: 63160 Critial Care 1st Hr
--- NOTE | 2022-06-10 07:30 | NURSING ---
0500-CPOT 0/2 Fent at 25mcg 0515-CPOT 0/2 Fent increased to 125mcg after SBT failed 0600-CPOT 0/1 Fent at 125mcg
[2022-06-10] MEDS: Potassium Chloride Oral Soln 20 MEQ/15 ML UDC 40 MEQ GT (07:44)
[2022-06-10] MEDS: Amiodarone 200 MG Tablet NG ×2 (07:50→21:47)
[2022-06-10] MEDS: Linezolid 600 MG Tablet GT ×2 (07:50→23:48)
[2022-06-10] MEDS: Juven (unflavored) Packet 1 PACKET GT ×2 (07:50→17:45)
[2022-06-10] MEDS: Aspirin 81 MG TAB.CHEW NG (07:50)
[2022-06-10] MEDS: Chlorhexidine 15 ML PO ×2 (07:50→21:50)
[2022-06-10] MEDS: Menthol/Lanolin/Calamine/Znox 113 GM Tube 1 APPLIC TOPICAL ×2 (07:56→21:51)
[2022-06-10] MEDS: Ciprofloxacin 400 MG/200 ML BAG 200 MG IV ×2 (10:01→21:50)
[2022-06-10] MEDS: Insulin Glargine-YFGN 100 UNIT/ML Pen SC (10:19)
--- NOTE | 2022-06-10 10:26 | PCM.PN.HOSP ---
Reason for Visit Reason for Visit: Diagnoses Sepsis, unspecified organism (05/19/22) Anemia, unspecified (05/19/22) Thrombocytopenia, unspecified (05/19/22) Type 2 diabetes mellitus with foot ulcer (05/19/22) Other toxic encephalopathy (05/19/22) Encephalopathy, unspecified (05/19/22) Unspecified atrial fibrillation (05/19/22) Pneumonia, unspecified organism (05/19/22) Chronic obstructive pulmonary disease with (acute) exacerbation (05/19/22) Acute and chronic respiratory failure with hypoxia (05/19/22) Acute and chronic respiratory failure with hypercapnia (05/19/22) Non-pressure chronic ulcer of other part of unspecified foot with unspecified severity (05/19/22) Acute kidney failure, unspecified (05/19/22) Generalized edema (05/19/22) Severe sepsis without septic shock (05/19/22) Severe sepsis with septic shock (05/19/22) Bacteremia (05/19/22) Dependence on respirator [ventilator] status (05/19/22) Subjective Subjective Laying in bed, awake but not following commands purposefully, remains intubated Objective Data Objective Data Vital Signs: Vital Signs Temp Pulse Resp BP Pulse Ox O2 Del Method O2 Flow Rate 98.9 F 107 H 20 H 91/56 L 96 Mechanical Ventilator 10 06/10/22 10:00 06/10/22 10:00 06/10/22 10:00 06/10/22 10:00 06/10/22 10:00 06/10/22 10:00 06/04/22 12:19 FiO2 30 06/10/22 10:00 Oxygen Flow Rate (L/min) 10 Oxygen Delivery Method Mechanical Ventilator Weight: 99.8 kg Body Mass Index (BMI) 36.6 Intake & Output: Intake and Output for Last 24 Hours 06/08/22 06/09/22 06/10/22 23:59 23:59 23:59 Intake Total 2222.36 / 2434.11 2842.80 / 2858.08 1148.59 / 1148.59 Output Total 1750 / 2000 950 / 1200 500 / 500 Balance 472.36 / 434.11 1892.80 / 1658.08 648.59 / 648.59 Lab / Micro Data Result Diagrams: 06/10/22 03:55 06/10/22 03:55 Labs: Laboratory Results - last 24 hr 06/09/22 12:33: POC Glucose 155 H 06/09/22 17:16: POC Glucose 164 H 06/10/22 01:39: POC Glucose 203 H 06/10/22 03:55: WBC 4.4, RBC 2.44 L, Hgb 7.2 L, Hct 23.4 L, MCV 95.9, MCH 29.5, MCHC 30.8 L, RDW Std Deviation 58.9 H, RDW Coeff of Magen 17.1 H, Plt Count 95 L, MPV 12.1 H, Immature Gran % (Auto) 0.500, Neut % (Auto) 45.4 L, Lymph % (Auto) 25.9, [place] % (Auto) 12.6 H, Eos % (Auto) 15.1 H, Baso % (Auto) 0.5, Absolute Neuts (auto) 2.0, Absolute Lymphs (auto) 1.15, Nucleated RBC % 0 06/10/22 03:55: Sodium 144, Potassium 3.7, Chloride 117 H, Carbon Dioxide 24.0, Anion Gap 3 L, BUN 57 H, Creatinine 1.29 H, Estim Creat Clear Calc 37.04, Est GFR (MDRD) Af Amer 53 L, Est GFR (MDRD) Non-Af 44 L, BUN/Creatinine Ratio 44.2 H, Glucose 210 H, Calcium 7.6 L, Total Bilirubin 0.40, AST 11 L, ALT 9 L, Alkaline Phosphatase 110, Total Protein 4.7 L, Albumin 1.1 L, Globulin 3.6, Albumin/Globulin Ratio 0.3 L Micro: Microbiology 06/04/22 22:25 Blood Culture (Wb) - Arm Left Blood Culture - Final No growth in 5 days. 06/04/22 18:30 Blood Culture (Wb) - Pic Blood Culture - Final No growth in 5 days. 06/05/22 03:52 Wound - Leg, Left Gram Stain - Final 06/05/22 03:52 Wound - Leg, Left Wound Culture - Final Staphylococcus haemolyticus Vancomycin Resist. E. faecium 06/04/22 13:05 Sputum, Induced/Lukens Gram Stain - Final 06/04/22 13:05 Sputum, Induced/Lukens Respiratory Culture - Final Staphylococcus haemolyticus Pseudomonas aeruginosa 06/04/22 20:00 Urine Catheter - Catheter Urine Culture - Final Culture exhibits no growth. 06/05/22 16:40 Stool C. difficile GDH Antigen & Toxins - Final 06/05/22 16:40 Stool C. difficile DNA Amplification - Final 05/28/22 11:30 Suture Gram Stain - Final 05/28/22 11:30 Suture Wound Culture - Final Vancomycin Resist. E. faecium Staphylococcus haemolyticus 05/24/22 06:35 Wound - Arm Left Gram Stain - Final 05/24/22 06:35 Wound - Arm Left Wound Culture - Final Pseudomonas aeruginosa Staphylococcus haemolyticus Staphylococcus epidermidis 05/24/22 06:35 Wound - Arm Left Anaerobic Culture - Final No anaerobic bacteria isolated. 05/19/22 14:30 Blood Culture (Wb) - Port Blood Culture - Final No growth in 5 days. 05/19/22 13:45 Blood Culture (Wb) - Port Blood Culture - Final No growth in 5 days. 05/20/22 17:40 Sputum, Induced/Lukens Gram Stain - Final 05/20/22 17:40 Sputum, Induced/Lukens Respiratory Culture - Final Escherichia coli 05/19/22 22:20 Transtracheal Aspirate Gram Stain - Final 05/19/22 22:20 Transtracheal Aspirate Respiratory Culture - Final Escherichia coli 05/20/22 04:25 Urine Catheter - Knight Urine Culture - Final Culture exhibits no growth. 05/20/22 04:25 Urine Catheter - Knight Legionella Antigen - Final 05/20/22 04:25 Urine Catheter - Knight Streptococcus pneumoniae Antigen (M - Final 05/19/22 22:20 Mucosa - Nasopharyngeal Respiratory Panel (PCR) - Final Rhythm Strip Rhythm Strip: A flutter Rate: 118 Ectopy: None Physical Exam Narrative General: Intubated HEENT: Atraumatic Eyes: Eyes open and looking around Neck: Supple Respiratory: Mechanically ventilated, no wheezes Cardiovascular: Tachycardic GI: nondistended Extremities: Extremities wrapped, does have pitting edema somewhat diffusely Musculoskeletal: Following commands and moving extremities Neuro: Awake, trying to mouth words, following commands Skin: Chronic right lower leg changes Psych: Moving purposefully, attempting to be cooperative Assessment & Plan Assessment/Plan (1) Toxic metabolic encephalopathy: (2) Acute on chronic respiratory failure with hypoxia and hypercapnia: (3) Anemia: (4) Gram-negative bacteremia: PLAN: Plan #Acute hypoxic respiratory failure due to HFpEF and GNR and staph hemolyticus pneumonia -Had been intubated in the ICU in the beginning of her hospital stay w/ ecoli pneumonia but completed a course of meropenem and was started on Lasix and ultimately was able to be extubated and sent to the floor -Yesterday 06/04 she had increasing oxygen requirements and required reintubation -Remains intubated and sedated -Did have dysphagia prior to reintubation and PEG tube was recommended, will need to revisit this pending progress -Follow repeat cultures, ID reconsulted for eval -Vancomycin restarted -Remains on ipratropium nebs -06/06: Respiratory culture growing staph hemolyticus sensitive to vancomycin as well as a gram-negative marita that is awaiting speciation. On vancomycin, infectious disease following. Did have a wound and tissue specimen from her leg yesterday that shows 2+ gram-positive cocci in clusters, culture pending. Blood cultures pending. Additionally is having diarrhea, C. difficile pending. -06/07: C. difficile PCR positive but antigen and toxin negative. Wound with staph hemolyticus, sputum also with staph hemolyticus and gram-negative rods which speciation is still pending, blood cultures pending -06/08: Leg wound with Staphylococcus hemolyticus and Enterococcus faecium. On IV Cipro. She will be challenged with diuretics today -06/09: Has improved overall, presently on IV Cipro. Wound growing staph hemolyticus and VRE, ID managing antibiotics -06/10: Family has decided on trach and PEG, ENT for trach placement next week, patient also need PEG placement. Infectious disease was changed vancomycin to linezolid, continues on Cipro #Hypernatremia?resolved -Free water flushes have been increased -Challenge with diuretics when appropriate -06/07: Sodium 149 today, to be challenged with diuretics, is up in weight today. Continue to monitor daily weights and I's and O's -06/08: Improving #Thrombocytopenia -Widely variable during admission -Down to 89, likely 2/2 infection and critical illness, given additional worsening anemia, will obtain hemolysis and DIC labs -Monitor for need to hold pharmacologic DVT prophylaxis -06/08: Has been fairly similar in the past several days, continue to monitor #MIKE on CKD stage IIIb -Had resolved but creatinine slowly increasing again and is 1.20 today, enteral feeds on board -Hold IV diuresis, cannot rule out needing gentle hydration pending progress -06/06: Worsening kidney function, treat underlying infection and provide blood pressure support as necessary, diuretics when appropriate -06/07: Slightly improved today -06/08: Continues to improve -06/10: Variable but roughly stable, continue to monitor #Type 2 diabetes mellitus -Glucose checks and sliding scale insulin -06/06: Glucose increasing, likely secondary to infection and possibly now tube feeding with increased nutrition, continue sliding scale insulin and treat underlying cause and if persists can further adjust insulin -06/09: Doing better with 5 units of long-acting #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 Intact dressing over stump -06/06: stump cx growing gram positive cocci, culture pending, ID on board #Septic shock due to ESBL E. coli?resolved -ID has been following, completed vancomycin and meropenem courses -Had been off of vasopressors prior to re intubation #Left upper extremity wound infection -Culture grew Pseudomonas and enteric coccus as well as Staph epidermidis and staph hemolyticus -Had been seen by infectious disease and completed meropenem course -06/08: Leg wound with Staphylococcus hemolyticus and Enterococcus faecium. On IV Cipro. ID managing -06/09: Leg wound with staph hemolyticus and VRE, ID managing antibiotics #Afib -On po amio #Chronic anemia -Monitor, transfuse for hgb <7 -Hemoglobin 9.1, overall fairly stable and no evidence of bleeding at this time -06/06: Hemoglobin 8, has had significant variation in hemoglobin string was hospitalization, no active evidence of bleeding, will monitor closely and transfuse as warranted #Hx CAD s/p stent -asa and statin #Hypothyroidism -Continue Synthroid #DVT ppx: Heparin subcu Coco Romero MD Time spent in the patient's overall evaluation,decision-making process, review of diagnostic data, adjustment of management, discussion with other providers, nursing nursing and ancillary staff involved in patient's care documentation, 30 minutes Charges/Coding Visit Charges Inpatient E&M: 28673 [facility] Hosp L2
[2022-06-10 10:40] LABS: Bedside Glucose 214 mg/dL (74-106)
[2022-06-10] MEDS: Vital AF 1.2 Cal Liquid 1,000 ML 50 ML GT (13:29)
[2022-06-10 18:05] LABS: Bedside Glucose 307 mg/dL (74-106)
[2022-06-10] MEDS: Senna/Docusate Sodium 1 Tablet 2 TABLET NG (21:48)
[2022-06-11] VITALS (38 sets, daily range): BP systolic 74–106; BP diastolic 50–77; PULSE 91–128; RESP 16–35; TEMP 36.9–37.7; O2SAT 92–98; BMI 37.4
[2022-06-11 00:10] LABS: Bedside Glucose 290 mg/dL (74-106)
[2022-06-11] MEDS: Ipratropium 0.5 MG/2.5 ML SOLUTION INHALATION ×4 (02:23→19:06)
[2022-06-11] MEDS: Heparin Injection (Vial) 5,000 UNIT/ML VIAL 5000 UNIT SC ×3 (05:45→21:45)
[2022-06-11] MEDS: Insulin Lispro 100 UNIT/ML INSULN.PEN SC ×4 (05:45→23:42)
[2022-06-11] MEDS: Metoclopramide 10 MG/2 ML Vial 5 MG IV ×4 (05:45→23:42)
[2022-06-11] MEDS: Nystatin Powder 15gm Bottle 1 APPLIC TOPICAL ×3 (05:45→21:46)
[2022-06-11] MEDS: Levothyroxine 125 MCG Tablet GT (05:45)
[2022-06-11 05:49] LABS: Absolute Lymphocyte Count 0.77 X10^3/uL (0.83-4.51); Absolute Neutrophil Count 1.8 X10^3/uL (2.0-7.7); Basophil# 0.02 X10^3/uL; Basophil% 0.5 % (0-1); Eosinophil# 0.38 X10^3/uL; Eosinophils% 10.1 % (0-5); Hematocrit 22.7 % (37-47); Hemoglobin 6.9 g/dL (12.0-15.0); Lymphocyte # 0.77 X10^3/ul (0.83-4.51); Lymphocyte % 20.5 % (19-41); Mean Corp Hgb Conc 30.4 g/dL (32-36); Mean Corpuscular Hgb 29.4 pg (27.0-32.0); Mean Corpuscular Volume 96.6 fL (81-99); Mean Platelet Vol. 11.9 fl (6.2-12.0); Monocyte% 18.7 % (0-10); NRBC Flagged by Analyzer 0 % (0-5); Neutrophil # 1.84 X10^3/uL (2.7-7.7); Neutrophil % 49.1 % (47-70); Platelet Count 101 K/mm3 (150-450); RBC Distribution Width CV 17.2 % (11.6-14.6); RBC Distribution Width SD 60.5 fl (35.1-43.9); Red Blood Count 2.35 M/mm3 (4.2-5.4); White Blood Count 3.8 K/mm3 (4.4-11.0)
[2022-06-11] MEDS: CHLORHEXIDINE GLUC 2% CLOTH 1 EACH TOWELETTE TOPICAL (05:50)
[2022-06-11 06:00] LABS: Bedside Glucose 284 mg/dL (74-106)
[2022-06-11 06:16] LABS: ALB/GLOB Ratio 0.3 RATIO (0.9-2.4); AST(SGOT) 11 U/L (15-37); Alanine Aminotransfer ALT/SGPT 9 U/L (13-56); Albumin, Serum 1.2 g/dL (3.2-5.0); Alkaline Phosphatase 137 U/L (45-117); Anion Gap 2 (5-15); BUN 61 mg/dL (7-18); BUN/Creat Ratio 43.9 RATIO (10-20); Calcium,Total 7.6 mg/dL (8.5-10.1); Chloride 117 mmol/L (98-107); Creatinine, Serum 1.39 mg/dL (0.55-1.02); EST Glomerular Filtration Rate 40 mL/min (>60); Est Glom Filt Rate - Afr Amer 49 mL/min (>60); Estimated Creatinine Clearance 34.38 ml/min; Globulin 3.8 g/dL (2.2-4.2); Glucose 301 mg/dL (74-106); Sodium Level 142 mmol/L (136-145)
--- NOTE | 2022-06-11 06:45 | RAD_ITS ---
EXAM: XR CHEST, 1 VIEW CLINICAL INDICATION: et tube placement TECHNIQUE: Frontal view of the chest. This report was created using [employer] report generation technology. COMPARISON: 06/05/2022 FINDINGS: LUNGS AND PLEURAL SPACES: Bibasilar airspace disease and moderate pleural effusions. No pneumothorax. HEART: Unremarkable. Cardiac silhouette not enlarged. MEDIASTINUM: Central airways and mediastinal contour are unremarkable. BONES/JOINTS: Unremarkable. SOFT TISSUES: Unremarkable. TUBES, LINES AND DEVICES: Endotracheal tube with tip 3 cm above the ousmane. Stable enteric tube. Stable right PICC. RAD/CXR for Line Placement IMPRESSION: 1. Bibasilar airspace disease and moderate pleural effusions. Findings may indicate atelectasis or pneumonia. 2. Endotracheal tube with tip 3 cm above the ousmane. Electronically Signed: Sony Pierre MD at 7:24 EDT ,
--- NOTE | 2022-06-11 07:39 | PN.CC_ITS ---
Assessment & Plan Assessment/Plan (1) Septic shock: PLAN: Plan RECOMMENDATIONS: 1. Continue assist-control mode mechanical ventilation. Wean FiO2 and PEEP to maintain saturations at or above 90%. 2. Appreciate ID input. On contact precautions secondary to VRE 3. Continue to challenge with diuretics and Reglan 4. Attempt to discontinue propofol. Pressors if needed 5. Continue appropriate ICU prophylaxis. 6. Prepare for trach and PEG early next week 7. Potential transfer to LTAC 48 hours after procedures. IMPRESSIONS: 1. Septic shock Resolved. Patient does have a history of ESBL E. coli in this hospital ization. Patient has had some liquid bowel movements, but is not having any fever or leukocytosis. Patient did have some hypotension following intubation, but this appears to be resolved. ID is following and cultures are noted. Defer antibiotics to infectious disease. Patient with multiple MDRO organisms. Need for pressors appears to correlate with the use of propofol. Anticipate pressors will be discontinued once tracheostomy completed and sedation can be lightened. We will attempt gentle diuresis with G-tube Lasix 2. Encephalopathy Tolerating sedation breaks better. Most likely related to acute CO2 retention. It is unclear as to whether the patient had access to a BiPAP at her nursing facility and whether or not it was being utilized. Patient continues to fail to use BiPAP following extubation in the hospital. Failure to use BiPAP will likely lead to recurrent metabolic encephalopathy secondary to elevated CO2 levels. 3. Acute on chronic combined respiratory failure Patient did grow ESBL E. coli in her sputum indicating pneumonia on presentation as an etiology of her initial respiratory failure. Patient CO2 retention is much improved following intubation. Plan to continue scheduled bronchodilators over concerns for underlying obstructive lung disease. We will attempt gentle diuresis today. It does not appear the patient was using BiPAP with sleep after extubation. Given protracted intubation status with only a brief interruption, patient would likely benefit from a trach and PEG to allow for medical stabilization and recovery. Family has agreed to this plan. ENT has been consulted for trach, but timing has not been determined. Dr. Mccrary is anticipating Sunday for PEG. Patient reportedly will be able to go to an LTAC 48 to 72 hours after procedures are completed. 4. Acute on chronic kidney disease Stable, but patient is developing hypernatremia and hyperchloremia. We will continue tube feeds with free water flushes. Most likely prerenal in etiology in the setting of #1. Creatinine has worsened recently, likely secondary to decreased perfusion with acidosis. We will plan to continue to monitor urine output for now. No current indication for renal replacement therapy. 5. 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 Continue to monitor H&H daily. Transfuse if hemoglobin drops below 7 g/dL. We will transfuse blood today. Continue PPI therapy as ordered. Sutures on AKA appear to be holding at this time despite anasarca. Will continue Reglan TIME: 45 minutes of critical care time, independent of procedures, was spent addressing the patient septic shock, encephalopathy, acute on chronic combined respiratory failure, acute on chronic kidney disease, review of all data and collaboration with the care team. Subjective Subjective Patient did okay from a hemodynamic standpoint. Patient has been tolerating tube feeds well. Patient remains in a flutter with RVR. Patient was apneic during her trial this morning. Blood pressures have been marginal, but no pressors have been required as long as patient does not require propofol. Objective Data Objective Data On my evaluation, patient was noted to have significant upper airway noises. Patient was returning approximately 270 cc of the 450 cc set on the ventilator. Evaluation of the endotracheal tube showed the balloon was intact, but the ET tube was found at 21 cm instead of the 25 that has been documented. The suction catheter was advanced with a positive cough reflex. Balloon was reduced and endotracheal tube was advanced to 25 cm. Subsequent chest x-ray showed basilar atelectasis with good position. Full return volumes were then noted. Vital Signs: Vital Signs Temp Pulse Resp BP Pulse Ox O2 Del Method O2 Flow Rate 37.5 C H 112 H 20 H 83/58 L 94 Mechanical Ventilator 10 06/11/22 02:00 06/11/22 07:00 06/11/22 07:00 06/11/22 07:00 06/11/22 07:00 06/11/22 07:00 06/04/22 12:19 FiO2 30 06/11/22 07:00 Oxygen Flow Rate (L/min) 10 Oxygen Delivery Method Mechanical Ventilator Weight: 101.9 kg Body Mass Index (BMI) 37.4 Intake & Output: Intake and Output for Last 24 Hours 04/14/23 04/15/23 04/16/23 23:59 23:59 23:59 Intake Total 2842.80 / 2858.08 3445.67 / 3913.17 1743.00 / 1743.00 Output Total 950 / 1200 1075 / 1425 450 / 450 Balance 1892.80 / 1658.08 2370.67 / 2488.17 1293.00 / 1293.00 Lab / Micro Data Attestation: I reviewed the patient's lab results. Result Diagrams: 06/11/22 05:30 06/11/22 05:30 Labs: Laboratory Results - last 24 hr 06/10/22 10:19: POC Glucose 214 H 06/10/22 17:43: POC Glucose 307 H 06/10/22 23:48: POC Glucose 290 H 06/11/22 05:30: WBC 3.8 L, RBC 2.35 L, Hgb 6.9 L, Hct 22.7 L, MCV 96.6, MCH 29.4, MCHC 30.4 L, RDW Std Deviation 60.5 H, RDW Coeff of Magen 17.2 H, Plt Count 101 L, MPV 11.9, Immature Gran % (Auto) 1.100 H, Neut % (Auto) 49.1, Lymph % (Auto) 20.5, [place] % (Auto) 18.7 H, Eos % (Auto) 10.1 H, Baso % (Auto) 0.5, Absolute Neuts (auto) 1.8 L, Absolute Lymphs (auto) 0.77 L, Nucleated RBC % 0 06/11/22 05:30: Sodium 142, Potassium 4.0, Chloride 117 H, Carbon Dioxide 23.0, Anion Gap 2 L, BUN 61 H, Creatinine 1.39 H, Estim Creat Clear Calc 34.38, Est GFR (MDRD) Af Amer 49 L, Est GFR (MDRD) Non-Af 40 L, BUN/Creatinine Ratio 43.9 H , Glucose 301 H, Calcium 7.6 L, Total Bilirubin 0.40, AST 11 L, ALT 9 L, Alkaline Phosphatase 137 H, Total Protein 5.0 L, Albumin 1.2 L, Globulin 3.8, Albumin/Globulin Ratio 0.3 L 06/11/22 05:41: POC Glucose 284 H 06/11/22 06:35: Crossmatch See Detail Micro: Microbiology 06/04/22 22:25 Blood Culture (Wb) - Arm Left Blood Culture - Final No growth in 5 days. 06/04/22 18:30 Blood Culture (Wb) - Pic Blood Culture - Final No growth in 5 days. 06/05/22 03:52 Wound - Leg, Left Gram Stain - Final 06/05/22 03:52 Wound - Leg, Left Wound Culture - Final Staphylococcus haemolyticus Vancomycin Resist. E. faecium 06/04/22 13:05 Sputum, Induced/Lukens Gram Stain - Final 06/04/22 13:05 Sputum, Induced/Lukens Respiratory Culture - Final Staphylococcus haemolyticus Pseudomonas aeruginosa 06/04/22 20:00 Urine Catheter - Catheter Urine Culture - Final Culture exhibits no growth. 06/05/22 16:40 Stool C. difficile GDH Antigen & Toxins - Final 06/05/22 16:40 Stool C. difficile DNA Amplification - Final 05/28/22 11:30 Suture Gram Stain - Final 05/28/22 11:30 Suture Wound Culture - Final Vancomycin Resist. E. faecium Staphylococcus haemolyticus 05/24/22 06:35 Wound - Arm Left Gram Stain - Final 05/24/22 06:35 Wound - Arm Left Wound Culture - Final Pseudomonas aeruginosa Staphylococcus haemolyticus Staphylococcus epidermidis 05/24/22 06:35 Wound - Arm Left Anaerobic Culture - Final No anaerobic bacteria isolated. 05/19/22 14:30 Blood Culture (Wb) - Port Blood Culture - Final No growth in 5 days. 05/19/22 13:45 Blood Culture (Wb) - Port Blood Culture - Final No growth in 5 days. 05/20/22 17:40 Sputum, Induced/Lukens Gram Stain - Final 05/20/22 17:40 Sputum, Induced/Lukens Respiratory Culture - Final Escherichia coli 05/19/22 22:20 Transtracheal Aspirate Gram Stain - Final 05/19/22 22:20 Transtracheal Aspirate Respiratory Culture - Final Escherichia coli 05/20/22 04:25 Urine Catheter - Knight Urine Culture - Final Culture exhibits no growth. 05/20/22 04:25 Urine Catheter - Knight Legionella Antigen - Final 05/20/22 04:25 Urine Catheter - Knight Streptococcus pneumoniae Antigen (M - Final 05/19/22 22:20 Mucosa - Nasopharyngeal Respiratory Panel (PCR) - Final Radiography Diagnostic Testing: Radiology Impression Chest X-Ray 06/11/22 06:45 IMPRESSION: 1. Bibasilar airspace disease and moderate pleural effusions. Findings may indicate atelectasis or pneumonia. 2. Endotracheal tube with tip 3 cm above the ousmane. Electronically Signed: Sony Pierre MD at 7:24 EDT Reading Location ID and State: [facility] / [place] Tel , Service support , Rhythm Strip Rhythm Strip: A flutter Rate: 116 Ectopy: None Physical Exam Const Constitutional Narrative: Intubated, sedated and mechanically ventilated. No ventilator dyssynchrony. RASS 0. Anasarca. Moving head back and forth. Intermittently makes eye contact. HEENT normocephalic and head/scalp atraumatic Eyes PERRL and conjunctivae normal Neck supple General: trachea midline and CVC in place Chest inspection of chest normal Resp Auscultation: diminished lung sounds; Negative for rales, rhonchi or wheezes Cardio regular rate, S1 normal heart sound, S2 normal heart sound, no murmurs, no rub and no gallops Rate: tachycardic Rhythm: abnormal rhythm GI normal to inspection, nondistended, normoactive bowel sounds Extremity Extremity Narrative: Diffuse minor ecchymotic areas in IV sites. Some erythema at the stump. Skin General Skin Exam: venous stasis and dermatitis Neuro moves all extremities and no focal motor deficits Psych Mood & Affect: flat affect Charges/Coding Procedures Hospitalists Procedures: 27627 Critial Care 1st Hr
[2022-06-11] MEDS: Senna/Docusate Sodium 1 Tablet 2 TABLET NG ×2 (07:42→21:44)
[2022-06-11] MEDS: Juven (unflavored) Packet 1 PACKET GT ×2 (07:42→18:26)
[2022-06-11] MEDS: Aspirin 81 MG TAB.CHEW NG (07:42)
[2022-06-11] MEDS: Amiodarone 200 MG Tablet NG ×2 (07:42→21:45)
[2022-06-11] MEDS: Chlorhexidine 15 ML PO ×2 (07:43→21:47)
[2022-06-11] MEDS: Linezolid 600 MG Tablet GT ×2 (07:43→21:45)
--- NOTE | 2022-06-11 07:45 | PN.HOSP_ITS ---
Reason for Visit Reason for Visit: Diagnoses Sepsis, unspecified organism (05/19/22) Anemia, unspecified (05/19/22) Thrombocytopenia, unspecified (05/19/22) Type 2 diabetes mellitus with foot ulcer (05/19/22) Other toxic encephalopathy (05/19/22) Encephalopathy, unspecified (05/19/22) Unspecified atrial fibrillation (05/19/22) Pneumonia, unspecified organism (05/19/22) Chronic obstructive pulmonary disease with (acute) exacerbation (05/19/22) Acute and chronic respiratory failure with hypoxia (05/19/22) Acute and chronic respiratory failure with hypercapnia (05/19/22) Non-pressure chronic ulcer of other part of unspecified foot with unspecified severity (05/19/22) Acute kidney failure, unspecified (05/19/22) Generalized edema (05/19/22) Severe sepsis without septic shock (05/19/22) Severe sepsis with septic shock (05/19/22) Bacteremia (05/19/22) Dependence on respirator [ventilator] status (05/19/22) Subjective Subjective This a.m. patient had partially removed her ET tube but this was replaced without having to extubate fully and reintubated. Otherwise roughly unchanged today Objective Data Objective Data Vital Signs: Vital Signs Temp Pulse Resp BP Pulse Ox O2 Del Method O2 Flow Rate 99.5 F H 112 H 20 H 83/58 L 94 Mechanical Ventilator 10 06/11/22 02:00 06/11/22 07:00 06/11/22 07:00 06/11/22 07:00 06/11/22 07:00 06/11/22 07:00 06/04/22 12:19 FiO2 30 06/11/22 07:00 Oxygen Flow Rate (L/min) 10 Oxygen Delivery Method Mechanical Ventilator Weight: 101.9 kg Body Mass Index (BMI) 37.4 Intake & Output: Intake and Output for Last 24 Hours 06/09/22 06/10/22 06/11/22 23:59 23:59 23:59 Intake Total 2842.80 / 2858.08 3445.67 / 3913.17 1743.00 / 1743.00 Output Total 950 / 1200 1075 / 1425 450 / 450 Balance 1892.80 / 1658.08 2370.67 / 2488.17 1293.00 / 1293.00 Lab / Micro Data Result Diagrams: 06/11/22 05:30 06/11/22 05:30 Labs: Laboratory Results - last 24 hr 06/10/22 10:19: POC Glucose 214 H 06/10/22 17:43: POC Glucose 307 H 06/10/22 23:48: POC Glucose 290 H 06/11/22 05:30: WBC 3.8 L, RBC 2.35 L, Hgb 6.9 L, Hct 22.7 L, MCV 96.6, MCH 29.4, MCHC 30.4 L, RDW Std Deviation 60.5 H, RDW Coeff of Magen 17.2 H, Plt Count 101 L, MPV 11.9, Immature Gran % (Auto) 1.100 H, Neut % (Auto) 49.1, Lymph % (Auto) 20.5, [place] % (Auto) 18.7 H, Eos % (Auto) 10.1 H, Baso % (Auto) 0.5, Absolute Neuts (auto) 1.8 L, Absolute Lymphs (auto) 0.77 L, Nucleated RBC % 0 06/11/22 05:30: Sodium 142, Potassium 4.0, Chloride 117 H, Carbon Dioxide 23.0, Anion Gap 2 L, BUN 61 H, Creatinine 1.39 H, Estim Creat Clear Calc 34.38, Est GFR (MDRD) Af Amer 49 L, Est GFR (MDRD) Non-Af 40 L, BUN/Creatinine Ratio 43.9 H , Glucose 301 H, Calcium 7.6 L, Total Bilirubin 0.40, AST 11 L, ALT 9 L, Alkaline Phosphatase 137 H, Total Protein 5.0 L, Albumin 1.2 L, Globulin 3.8, Albumin/Globulin Ratio 0.3 L 06/11/22 05:41: POC Glucose 284 H 06/11/22 06:35: Crossmatch See Detail Micro: Microbiology 06/04/22 22:25 Blood Culture (Wb) - Arm Left Blood Culture - Final No growth in 5 days. 06/04/22 18:30 Blood Culture (Wb) - Pic Blood Culture - Final No growth in 5 days. 06/05/22 03:52 Wound - Leg, Left Gram Stain - Final 06/05/22 03:52 Wound - Leg, Left Wound Culture - Final Staphylococcus haemolyticus Vancomycin Resist. E. faecium 06/04/22 13:05 Sputum, Induced/Lukens Gram Stain - Final 06/04/22 13:05 Sputum, Induced/Lukens Respiratory Culture - Final Staphylococcus haemolyticus Pseudomonas aeruginosa 06/04/22 20:00 Urine Catheter - Catheter Urine Culture - Final Culture exhibits no growth. 06/05/22 16:40 Stool C. difficile GDH Antigen & Toxins - Final 06/05/22 16:40 Stool C. difficile DNA Amplification - Final 05/28/22 11:30 Suture Gram Stain - Final 05/28/22 11:30 Suture Wound Culture - Final Vancomycin Resist. E. faecium Staphylococcus haemolyticus 05/24/22 06:35 Wound - Arm Left Gram Stain - Final 05/24/22 06:35 Wound - Arm Left Wound Culture - Final Pseudomonas aeruginosa Staphylococcus haemolyticus Staphylococcus epidermidis 05/24/22 06:35 Wound - Arm Left Anaerobic Culture - Final No anaerobic bacteria isolated. 05/19/22 14:30 Blood Culture (Wb) - Port Blood Culture - Final No growth in 5 days. 05/19/22 13:45 Blood Culture (Wb) - Port Blood Culture - Final No growth in 5 days. 05/20/22 17:40 Sputum, Induced/Lukens Gram Stain - Final 05/20/22 17:40 Sputum, Induced/Lukens Respiratory Culture - Final Escherichia coli 05/19/22 22:20 Transtracheal Aspirate Gram Stain - Final 05/19/22 22:20 Transtracheal Aspirate Respiratory Culture - Final Escherichia coli 05/20/22 04:25 Urine Catheter - Knight Urine Culture - Final Culture exhibits no growth. 05/20/22 04:25 Urine Catheter - Knight Legionella Antigen - Final 05/20/22 04:25 Urine Catheter - Knight Streptococcus pneumoniae Antigen (M - Final 05/19/22 22:20 Mucosa - Nasopharyngeal Respiratory Panel (PCR) - Final Radiography Diagnostic Testing: Radiology Impression Chest X-Ray 06/11/22 06:45 IMPRESSION: 1. Bibasilar airspace disease and moderate pleural effusions. Findings may indicate atelectasis or pneumonia. 2. Endotracheal tube with tip 3 cm above the ousmane. Electronically Signed: Sony Pierre MD at 7:24 EDT , Rhythm Strip Rhythm Strip: A flutter Rate: 116 Ectopy: None Physical Exam Narrative General: Intubated HEENT: Atraumatic Eyes: Eyes open and looking around Neck: Supple Respiratory: Mechanically ventilated Cardiovascular: Tachycardic GI: nondistended Extremities: Extremities wrapped, does have pitting edema somewhat diffusely Musculoskeletal: Following commands and moving extremities Neuro: Intermittently will wake up and try to communicate Skin: Chronic right lower leg changes Psych: Intermittently will wake up and try to communicate Assessment & Plan Assessment/Plan (1) Toxic metabolic encephalopathy: (2) Acute on chronic respiratory failure with hypoxia and hypercapnia: (3) Anemia: (4) Gram-negative bacteremia: PLAN: Plan #Acute hypoxic respiratory failure due to HFpEF and GNR and staph hemolyticus pneumonia * -Had been intubated in the ICU in the beginning of her hospital stay w/ ecoli pneumonia but completed a course of meropenem and was started on Lasix and ultimately was able to be extubated and sent to the floor * -Yesterday 06/04 she had increasing oxygen requirements and required reintu bation * -Remains intubated and sedated * -Did have dysphagia prior to reintubation and PEG tube was recommended, will need to revisit this pending progress * -Follow repeat cultures, ID reconsulted for eval * -Vancomycin restarted * -Remains on ipratropium nebs -06/06: Respiratory culture growing staph hemolyticus sensitive to vancomycin as well as a gram-negative marita that is awaiting speciation. On vancomycin, infectious disease following. Did have a wound and tissue specimen from her leg yesterday that shows 2+ gram-positive cocci in clusters, culture pending. Blood cultures pending. Additionally is having diarrhea, C. difficile pending. -06/07: C. difficile PCR positive but antigen and toxin negative. Wound with staph hemolyticus, sputum also with staph hemolyticus and gram-negative rods which speciation is still pending, blood cultures pending -06/08: Leg wound with Staphylococcus hemolyticus and Enterococcus faecium. On IV Cipro. She will be challenged with diuretics today -06/09: Has improved overall, presently on IV Cipro. Wound growing staph hemolyticus and VRE, ID managing antibiotics -06/10: Family has decided on trach and PEG, ENT for trach placement next week, patient also need PEG placement. Infectious disease was changed vancomycin to linezolid, continues on Cipro -06/11: Clinical status roughly unchanged, trach and PEG this week #Hypernatremia?resolved -Free water flushes have been increased -Challenge with diuretics when appropriate -06/07: Sodium 149 today, to be challenged with diuretics, is up in weight today. Continue to monitor daily weights and I's and O's -06/08: Improving #Thrombocytopenia -Widely variable during admission -Down to 89, likely 2/2 infection and critical illness, given additional worsening anemia, will obtain hemolysis and DIC labs -Monitor for need to hold pharmacologic DVT prophylaxis -06/08: Has been fairly similar in the past several days, continue to monitor -06/11: Continues to improve #MIKE on CKD stage IIIb -Had resolved but creatinine slowly increasing again and is 1.20 today, enteral feeds on board -Hold IV diuresis, cannot rule out needing gentle hydration pending progress -06/06: Worsening kidney function, treat underlying infection and provide blood pressure support as necessary, diuretics when appropriate -06/07: Slightly improved today -06/08: Continues to improve -06/10: Variable but roughly stable, continue to monitor -06/11: Slightly uptrending again, Lasix 20 mg twice daily through G-tube #Type 2 diabetes mellitus -Glucose checks and sliding scale insulin -06/06: Glucose increasing, likely secondary to infection and possibly now tube feeding with increased nutrition, continue sliding scale insulin and treat underlying cause and if persists can further adjust insulin -06/09: Doing better with 5 units of long-acting -06/11: We will hold off on escalating long-acting insulin given possible surgery but will increase sliding scale to high medium #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 Intact dressing over stump -06/06: stump cx growing gram positive cocci, culture pending, ID on board -06/11: See above #Septic shock due to ESBL E. coli?resolved -ID has been following, completed vancomycin and meropenem courses -Had been off of vasopressors prior to re intubation #Left upper extremity wound infection -Culture grew Pseudomonas and enteric coccus as well as Staph epidermidis and staph hemolyticus -Had been seen by infectious disease and completed meropenem course -06/08: Leg wound with Staphylococcus hemolyticus and Enterococcus faecium. On IV Cipro. ID managing -06/09: Leg wound with staph hemolyticus and VRE, ID managing antibiotics #Afib -On po amio #Chronic anemia -Monitor, transfuse for hgb <7 -Hemoglobin 9.1, overall fairly stable and no evidence of bleeding at this time -06/06: Hemoglobin 8, has had significant variation in hemoglobin string was h ospitalization, no active evidence of bleeding, will monitor closely and transfuse as warranted -06/11: Slowly down trended but not threshold of transfusion with hemoglobin of 6.9, Blood cells ordered today #Hx CAD s/p stent -asa and statin #Hypothyroidism -Continue Synthroid #DVT ppx: Heparin subcu Coco Romero MD Time spent in the patient's overall evaluation,decision-making process, review of diagnostic data, adjustment of management, discussion with other providers, nursing nursing and ancillary staff involved in patient's care documentation, 30 minutes Charges/Coding Visit Charges Inpatient E&M: 98459 Subs Hosp L2
[2022-06-11] MEDS: Menthol/Lanolin/Calamine/Znox 113 GM Tube 1 APPLIC TOPICAL ×2 (08:10→21:46)
[2022-06-11] MEDS: Furosemide 10 MG/ML Liquid 20 MG GT ×2 (09:23→18:26)
[2022-06-11] MEDS: Insulin Glargine-YFGN 100 UNIT/ML Pen SC (09:29)
[2022-06-11] MEDS: Vital AF 1.2 Cal Liquid 1,000 ML 55 ML GT (09:34)
[2022-06-11 09:51] LABS: Bedside Glucose 226 mg/dL (74-106)
[2022-06-11] MEDS: Ciprofloxacin 400 MG/200 ML BAG 200 MG IV ×2 (09:52→21:45)
[2022-06-11 11:55] LABS: Bedside Glucose 279 mg/dL (74-106)
[2022-06-11 18:51] LABS: Bedside Glucose 286 mg/dL (74-106)
[2022-06-11] MEDS: 0.9% Saline Lock 10 ML Syringe IV (21:45)
[2022-06-12] VITALS (41 sets, daily range): BP systolic 78–113; BP diastolic 54–83; PULSE 85–112; RESP 14–24; TEMP 36–37.1; O2SAT 91–100; BMI 37.8
[2022-06-12 00:06] LABS: Bedside Glucose 315 mg/dL (74-106)
[2022-06-12] MEDS: Ipratropium 0.5 MG/2.5 ML SOLUTION INHALATION ×4 (01:46→19:03)
[2022-06-12] MEDS: Metoclopramide 10 MG/2 ML Vial 5 MG IV ×3 (05:35→18:12)
[2022-06-12] MEDS: Heparin Injection (Vial) 5,000 UNIT/ML VIAL 5000 UNIT SC ×3 (05:36→21:42)
[2022-06-12] MEDS: Levothyroxine 125 MCG Tablet GT (05:36)
[2022-06-12 05:45] LABS: Absolute Lymphocyte Count 0.96 X10^3/uL (0.83-4.51); Absolute Neutrophil Count 1.9 X10^3/uL (2.0-7.7); Basophil# 0.02 X10^3/uL; Basophil% 0.5 % (0-1); Eosinophil# 0.34 X10^3/uL; Eosinophils% 8.8 % (0-5); Hematocrit 24.1 % (37-47); Hemoglobin 7.6 g/dL (12.0-15.0); Lymphocyte # 0.96 X10^3/ul (0.83-4.51); Lymphocyte % 24.8 % (19-41); Mean Corp Hgb Conc 31.5 g/dL (32-36); Mean Corpuscular Hgb 29.7 pg (27.0-32.0); Mean Corpuscular Volume 94.1 fL (81-99); Mean Platelet Vol. 11.4 fl (6.2-12.0); Monocyte# 0.64 X10^3/uL; Monocyte% 16.5 % (0-10); NRBC Flagged by Analyzer 0 % (0-5); Neutrophil # 1.89 X10^3/uL (2.7-7.7); Neutrophil % 48.9 % (47-70); Platelet Count 104 K/mm3 (150-450); RBC Distribution Width CV 17.2 % (11.6-14.6); RBC Distribution Width SD 58.8 fl (35.1-43.9); Red Blood Count 2.56 M/mm3 (4.2-5.4); White Blood Count 3.9 K/mm3 (4.4-11.0)
[2022-06-12 06:38] LABS: ALB/GLOB Ratio 0.3 RATIO (0.9-2.4); AST(SGOT) 11 U/L (15-37); Alanine Aminotransfer ALT/SGPT 10 U/L (13-56); Albumin, Serum 1.3 g/dL (3.2-5.0); Alkaline Phosphatase 130 U/L (45-117); Anion Gap 2 (5-15); BUN 63 mg/dL (7-18); BUN/Creat Ratio 43.4 RATIO (10-20); Calcium,Total 7.9 mg/dL (8.5-10.1); Chloride 116 mmol/L (98-107); Creatinine, Serum 1.45 mg/dL (0.55-1.02); EST Glomerular Filtration Rate 38 mL/min (>60); Est Glom Filt Rate - Afr Amer 46 mL/min (>60); Estimated Creatinine Clearance 32.96 ml/min; Glucose 283 mg/dL (74-106); Potassium 3.7 mmol/L (3.5-5.1); Protein, Total 5.3 g/dL (6.4-8.2); Sodium Level 141 mmol/L (136-145)
--- NOTE | 2022-06-12 06:47 | PN.CC_ITS ---
Assessment & Plan Assessment/Plan (1) Septic shock: PLAN: Plan RECOMMENDATIONS: 1. Continue assist-control mode mechanical ventilation. Wean FiO2 and PEEP to maintain saturations at or above 90%. 2. Antimicrobials per ID recommendations. 3. Diuresis as tolerated by hemodynamics and renal function. 4. Resume tube feeds once PEG tube is placed. 5. Proceed with tracheostomy. 6. Continue appropriate ICU prophylaxis. IMPRESSIONS: 1. Septic shock Resolved. Multiple sources of infection have been identified during this hospi talization, including ESBL E. coli pneumonia and wound VRE. The patient remains hemodynamically stable off of vasopressor support. Antibiotics are being continued per ID recommendations. 2. Encephalopathy Improved. Most likely related to acute CO2 retention. It is unclear as to whether the patient had access to a BiPAP at her nursing facility and whether or not it was being utilized. The patient continues to fail to use BiPAP following extubation in the hospital. Failure to use BiPAP will likely lead to recurrent metabolic encephalopathy secondary to elevated CO2 levels. Therefore, plan to proceed with tracheostomy and PEG tube placement. 3. Acute on chronic combined respiratory failure The patient did grow ESBL E. coli in her sputum indicating pneumonia on presentation as an etiology of her initial respiratory failure. The patient has had multiple hospitalizations related to respiratory failure in the setting of noncompliance with PAP therapy, which ultimately leads to CO2 narcosis and the need for intubation. In light of these repeated episodes, plan is to proceed with tracheostomy and plate tube placement. LTAC disposition is pending. 4. Acute on chronic kidney disease Stable. We will continue tube feeds with free water flushes. Most likely prerenal in etiology in the setting of #1. Creatinine has worsened recently, likely secondary to decreased perfusion with acidosis. We will plan to continue to monitor urine output for now. No current indication for renal replacement therapy. 5. Dry gangrene of the left leg status post recent AKA/recurrent hospitalizati ons/diabetes mellitus/anemia/hyperlipidemia/CAD/gastroparesis Complicates care, management, recovery and prognosis. Continue to monitor H&H daily. Transfuse if hemoglobin drops below 7 g/dL. Continue PPI therapy as ordered. Sutures on AKA appear to be holding at this time despite anasarca. Continue Reglan as tolerated along with tube feeds. TIME: 34 minutes of critical care time, independent of procedures, was spent addressing the patient septic shock, encephalopathy, acute on chronic combined respiratory failure, acute on chronic kidney disease, review of all data and collaboration with the care team. Subjective Subjective The patient was seen and examined at the bedside this morning. Events from the last 24 hours have been reviewed. The patient is afebrile and hemodynamically stable. She is maintaining appropriate oxygen saturations on assist control mode mechanical ventilation with an FiO2 requirement of 30%. Tube feeds are currently on hold. There are tentative plans for tracheostomy placement today. Objective Data Objective Data The patient's most recent lab work, culture data and imaging studies have all been personally reviewed.? Surface echocardiogram from May 08 demonstrated normal LV size and function with an ejection fraction of 55%.? Mild to moderate global RV systolic dysfunction was noted along with a pulmonary artery systolic pressure of 50 mmHg.? Sputum culture dated May 21 was positive for ESBL E. coli. Sputum from June 04 was positive for Pseudomonas aeruginosa. Leg culture was positive for VRE. Vital Signs: Vital Signs Temp Pulse Resp BP Pulse Ox O2 Del Method O2 Flow Rate 97.7 F L 94 20 H 92/64 98 Mechanical Ventilator 10 06/12/22 05:00 06/12/22 05:40 06/12/22 05:40 06/12/22 05:00 06/12/22 05:40 06/12/22 05:00 06/04/22 12:19 FiO2 30 06/12/22 05:40 Oxygen Flow Rate (L/min) 10 Oxygen Delivery Method Mechanical Ventilator Weight: 226 lb 13.69 oz Body Mass Index (BMI) 37.8 Intake & Output: Intake and Output for Last 24 Hours 06/10/22 06/11/22 06/12/22 23:59 23:59 23:59 Intake Total 3445.67 / 3913.17 4625.83 / 5095.83 763.58 / 763.58 Output Total 1075 / 1425 800 / 1000 200 / 200 Balance 2370.67 / 2488.17 3825.83 / 4095.83 563.58 / 563.58 Lab / Micro Data Attestation: I reviewed the patient's lab results. Result Diagrams: 06/12/22 05:25 06/12/22 05:25 Labs: Laboratory Results - last 24 hr 06/11/22 06:35: Blood Type O NEGATIVE, Antibody Screen NEGATIVE, Crossmatch See Detail 06/11/22 09:28: POC Glucose 226 H 06/11/22 11:27: POC Glucose 279 H 06/11/22 18:25: POC Glucose 286 H 06/11/22 23:41: POC Glucose 315 H 06/12/22 05:25: WBC 3.9 L, RBC 2.56 L, Hgb 7.6 L, Hct 24.1 L, MCV 94.1, MCH 29.7, MCHC 31.5 L, RDW Std Deviation 58.8 H, RDW Coeff of Magen 17.2 H, Plt Count 104 L, MPV 11.4, Immature Gran % (Auto) 0.500, Neut % (Auto) 48.9, Lymph % (Auto) 24.8, [place] % (Auto) 16.5 H, Eos % (Auto) 8.8 H, Baso % (Auto) 0.5, Absolute Neuts (auto) 1.9 L, Absolute Lymphs (auto) 0.96, Nucleated RBC % 0 06/12/22 05:25: Sodium 141, Potassium 3.7, Chloride 116 H, Carbon Dioxide 23.0, Anion Gap 2 L, BUN 63 H, Creatinine 1.45 H, Estim Creat Clear Calc 32.96, Est GFR (MDRD) Af Amer 46 L, Est GFR (MDRD) Non-Af 38 L, BUN/Creatinine Ratio 43.4 H , Glucose 283 H, Calcium 7.9 L, Total Bilirubin 0.50, AST 11 L, ALT 10 L, Alkaline Phosphatase 130 H, Total Protein 5.3 L, Albumin 1.3 L, Globulin 4.0, Albumin/Globulin Ratio 0.3 L Micro: Microbiology 06/04/22 22:25 Blood Culture (Wb) - Arm Left Blood Culture - Final No growth in 5 days. 06/04/22 18:30 Blood Culture (Wb) - Pic Blood Culture - Final No growth in 5 days. 06/05/22 03:52 Wound - Leg, Left Gram Stain - Final 06/05/22 03:52 Wound - Leg, Left Wound Culture - Final Staphylococcus haemolyticus Vancomycin Resist. E. faecium 06/04/22 13:05 Sputum, Induced/Lukens Gram Stain - Final 06/04/22 13:05 Sputum, Induced/Lukens Respiratory Culture - Final Staphylococcus haemolyticus Pseudomonas aeruginosa 06/04/22 20:00 Urine Catheter - Catheter Urine Culture - Final Culture exhibits no growth. 06/05/22 16:40 Stool C. difficile GDH Antigen & Toxins - Final 06/05/22 16:40 Stool C. difficile DNA Amplification - Final 05/28/22 11:30 Suture Gram Stain - Final 05/28/22 11:30 Suture Wound Culture - Final Vancomycin Resist. E. faecium Staphylococcus haemolyticus 05/24/22 06:35 Wound - Arm Left Gram Stain - Final 05/24/22 06:35 Wound - Arm Left Wound Culture - Final Pseudomonas aeruginosa Staphylococcus haemolyticus Staphylococcus epidermidis 05/24/22 06:35 Wound - Arm Left Anaerobic Culture - Final No anaerobic bacteria isolated. 05/19/22 14:30 Blood Culture (Wb) - Port Blood Culture - Final No growth in 5 days. 05/19/22 13:45 Blood Culture (Wb) - Port Blood Culture - Final No growth in 5 days. 05/20/22 17:40 Sputum, Induced/Lukens Gram Stain - Final 05/20/22 17:40 Sputum, Induced/Lukens Respiratory Culture - Final Escherichia coli 05/19/22 22:20 Transtracheal Aspirate Gram Stain - Final 05/19/22 22:20 Transtracheal Aspirate Respiratory Culture - Final Escherichia coli 05/20/22 04:25 Urine Catheter - Knight Urine Culture - Final Culture exhibits no growth. 05/20/22 04:25 Urine Catheter - Knight Legionella Antigen - Final 05/20/22 04:25 Urine Catheter - Knight Streptococcus pneumoniae Antigen (M - Final 05/19/22 22:20 Mucosa - Nasopharyngeal Respiratory Panel (PCR) - Final Radiography Diagnostic Testing: Radiology Impression Chest X-Ray 06/11/22 06:45 IMPRESSION: 1. Bibasilar airspace disease and moderate pleural effusions. Findings may indicate atelectasis or pneumonia. 2. Endotracheal tube with tip 3 cm above the ousmane. Electronically Signed: Sony Pierre MD at 7:24 EDT , Rhythm Strip Rhythm Strip: A flutter Rate: 116 Ectopy: None Physical Exam Const Constitutional Narrative: Remains intubated, sedated and mechanically ventilated. No ventilator dyssynchrony. HEENT normocephalic and head/scalp atraumatic Mouth: endotracheal tube in place and OG tube in place Eyes PERRL and EOMs intact bilaterally Neck supple General: trachea midline Chest inspection of chest normal Resp normal respiratory effort Auscultation: diminished lung sounds Cardio regular rate and regular rhythm GI normal to inspection, nondistended, normoactive bowel sounds Extremity Extremity Narrative: Left AKA Skin General Skin Exam: venous stasis and dermatitis Neuro Sensorium / Orientation: sedated on vent Charges/Coding Procedures Hospitalists Procedures: 65093 Critial Care 1st Hr
[2022-06-12] MEDS: Nystatin Powder 15gm Bottle 1 APPLIC TOPICAL ×3 (07:00→21:36)
[2022-06-12] MEDS: Insulin Lispro 100 UNIT/ML INSULN.PEN SC ×3 (07:01→18:10)
--- NOTE | 2022-06-12 07:30 | PCM.PROGNOTE ---
Subjective Subjective Patient is intubated and sedated. She is scheduled for tracheostomy placement today. Objective Data Objective Data Vital Signs: Vital Signs Temp Pulse Resp BP Pulse Ox O2 Del Method O2 Flow Rate 97.9 F 108 H 20 H 96/69 98 Mechanical Ventilator 10 06/12/22 20:00 06/12/22 20:00 06/12/22 20:00 06/12/22 20:00 06/12/22 20:00 06/12/22 20:00 06/04/22 12:19 FiO2 30 06/12/22 20:00 Oxygen Flow Rate (L/min) 10 Oxygen Delivery Method Mechanical Ventilator Weight: 226 lb 13.69 oz Body Mass Index (BMI) 37.8 Intake & Output: Intake and Output for Last 24 Hours 06/10/22 06/11/22 06/12/22 23:59 23:59 23:59 Intake Total 3445.67 / 3913.17 4625.83 / 5095.83 1242.25 / 1242.25 Output Total 1075 / 1425 800 / 1000 1000 / 1000 Balance 2370.67 / 2488.17 3825.83 / 4095.83 242.25 / 242.25 Lab / Micro Data Result Diagrams: 06/12/22 05:25 06/12/22 05:25 Labs: Laboratory Results - last 24 hr 06/11/22 23:41: POC Glucose 315 H 06/12/22 05:25: WBC 3.9 L, RBC 2.56 L, Hgb 7.6 L, Hct 24.1 L, MCV 94.1, MCH 29.7, MCHC 31.5 L, RDW Std Deviation 58.8 H, RDW Coeff of Magen 17.2 H, Plt Count 104 L, MPV 11.4, Immature Gran % (Auto) 0.500, Neut % (Auto) 48.9, Lymph % (Auto) 24.8, Carroll % (Auto) 16.5 H, Eos % (Auto) 8.8 H, Baso % (Auto) 0.5, Absolute Neuts (auto) 1.9 L, Absolute Lymphs (auto) 0.96, Nucleated RBC % 0 06/12/22 05:25: Sodium 141, Potassium 3.7, Chloride 116 H, Carbon Dioxide 23.0, Anion Gap 2 L, BUN 63 H, Creatinine 1.45 H, Estim Creat Clear Calc 32.96, Est GFR (MDRD) Af Amer 46 L, Est GFR (MDRD) Non-Af 38 L, BUN/Creatinine Ratio 43.4 H, Glucose 283 H, Calcium 7.9 L, Total Bilirubin 0.50, AST 11 L, ALT 10 L, Alkaline Phosphatase 130 H, Total Protein 5.3 L, Albumin 1.3 L, Globulin 4.0, Albumin/Globulin Ratio 0.3 L 06/12/22 11:08: POC Glucose 206 H 06/12/22 18:03: POC Glucose 184 H Micro: Microbiology 06/04/22 22:25 Blood Culture (Wb) - Arm Left Blood Culture - Final No growth in 5 days. 06/04/22 18:30 Blood Culture (Wb) - Pic Blood Culture - Final No growth in 5 days. 06/05/22 03:52 Wound - Leg, Left Gram Stain - Final 06/05/22 03:52 Wound - Leg, Left Wound Culture - Final Staphylococcus haemolyticus Vancomycin Resist. E. faecium 06/04/22 13:05 Sputum, Induced/Lukens Gram Stain - Final 06/04/22 13:05 Sputum, Induced/Lukens Respiratory Culture - Final Staphylococcus haemolyticus Pseudomonas aeruginosa 06/04/22 20:00 Urine Catheter - Catheter Urine Culture - Final Culture exhibits no growth. 06/05/22 16:40 Stool C. difficile GDH Antigen & Toxins - Final 06/05/22 16:40 Stool C. difficile DNA Amplification - Final 05/28/22 11:30 Suture Gram Stain - Final 05/28/22 11:30 Suture Wound Culture - Final Vancomycin Resist. E. faecium Staphylococcus haemolyticus 05/24/22 06:35 Wound - Arm Left Gram Stain - Final 05/24/22 06:35 Wound - Arm Left Wound Culture - Final Pseudomonas aeruginosa Staphylococcus haemolyticus Staphylococcus epidermidis 05/24/22 06:35 Wound - Arm Left Anaerobic Culture - Final No anaerobic bacteria isolated. 05/19/22 14:30 Blood Culture (Wb) - Port Blood Culture - Final No growth in 5 days. 05/19/22 13:45 Blood Culture (Wb) - Port Blood Culture - Final No growth in 5 days. 05/20/22 17:40 Sputum, Induced/Lukens Gram Stain - Final 05/20/22 17:40 Sputum, Induced/Lukens Respiratory Culture - Final Escherichia coli 05/19/22 22:20 Transtracheal Aspirate Gram Stain - Final 05/19/22 22:20 Transtracheal Aspirate Respiratory Culture - Final Escherichia coli 05/20/22 04:25 Urine Catheter - Knight Urine Culture - Final Culture exhibits no growth. 05/20/22 04:25 Urine Catheter - Knight Legionella Antigen - Final 05/20/22 04:25 Urine Catheter - Knight Streptococcus pneumoniae Antigen (M - Final 05/19/22 22:20 Mucosa - Nasopharyngeal Respiratory Panel (PCR) - Final Rhythm Strip Rhythm Strip: A flutter Rate: 116 Ectopy: None Physical Exam Const alert Constitutional Narrative: Intubated HEENT normocephalic Mouth: dry mucous membranes Eyes PERRL and EOMs intact bilaterally Neck no lymphadenopathy and supple Lymph Lymphatic: no lymphadenopathy noted and no lymphedema noted Resp Resp Narrative: Remains intubated and sedated. Cardio regular rate, regular rhythm, S1 normal heart sound, S2 normal heart sound and no murmurs GI normal to inspection, nondistended, normoactive bowel sounds, soft to palpation, non-tender and non-distended Extremity Extremity Narrative: Left AKA stump with dressing bandage. Right lower extremity edematous. Neuro Neuro Narrative: Intubated, RASS score is 0 Assessment & Plan Assessment/Plan (1) Acute on chronic respiratory failure with hypoxia and hypercapnia: (2) Atrial fibrillation with rapid ventricular response: (3) Severe sepsis: PLAN: Plan Patient did not do well with a swallowing test and is not able to maintain nutrition orally. Therefore I was consulted for alternative means of nutrition and medication administration. I think she does need a percutaneous endoscopic gastrostomy tube placement. She will have it placed tomorrow. Thank you very much for allow me to participate in care of this patient. Charges/Coding Visit Charges Inpatient E&M: 21608 Subs Hosp L2
--- NOTE | 2022-06-12 09:18 | CASEMGMT ---
Addendum entered by Joann Jacques 06/12/22 16:49: Correction: Per Shaneka @ [facility], she stated they do not have any beds available at this time and it is not guaranteed that they would have a bed available by the end of the week and that it would all depend on if their potential discharges are ready for d/c at that time. Call received from pt's son, Chava. He stated their first choice is [facility]. He was made aware of above. He asked for CHRISTELLE WHEELER to call [facility] back to inquire if there have been any changes. Call placed to Shaneka @ [facility]. No answer. Call placed back to Chava and he was made aware. He is agreeable to having referral sent to [facility] at this time and states [place] location is preferable. Call placed to Radha @ [facility] and she was made aware. Referral sent to [facility] via [facility] at this time. Radha made aware this RN CM is not scheduled the next few days and to f/u with Marleen WHEELER, as needed. Addendum entered by Joann Jacques 06/12/22 10:40: Radha states they do have beds available @ their facilities, if family decide they would like pt to go to [facility]. Call received from Shaneka @ [facility]. She states they do not have a bed available at this time and will not have one available until the end of the week, with Wed being the earliest possible day of any openings. Addendum entered by Joann Jacques 06/12/22 10:37: Call received from Radha @ [facility]. She states she did not hear from pt's family this weekend to arrange for a tour of their facilities. Original Note: CHRISETLLE WHEELER NOTE: Call placed to pt's son/POA, Chava, to inquire if they have decided on preference of LTAC. No answer. VM left for him to return call. This RN CM contact info provided. Aaron PEREIRA CM
[2022-06-12] MEDS: Chlorhexidine 15 ML PO ×2 (09:25→21:44)
[2022-06-12] MEDS: CHLORHEXIDINE GLUC 2% CLOTH 1 EACH TOWELETTE TOPICAL (09:25)
[2022-06-12] MEDS: Menthol/Lanolin/Calamine/Znox 113 GM Tube 1 APPLIC TOPICAL ×2 (09:25→21:36)
[2022-06-12] MEDS: Ciprofloxacin 400 MG/200 ML BAG 200 MG IV ×2 (10:11→21:42)
--- NOTE | 2022-06-12 12:00 | NURSING ---
Patient left unit to OR
--- NOTE | 2022-06-12 12:18 | PCM.OPRPT ---
Problems Associated Problem List Diagnoses (1) On mechanically assisted ventilation: Report of Operation Date of Procedure: 06/12/22 Pre-Operative Diagnosis: respiratory failure Post-Operative Diagnosis: respiratory failure Surgery/Procedure Performed:: tracheostomy placement with nedra flap Surgeon: Ronni Goins Type of Anesthesia: General Description of Procedure: on the day of the procedure after appropriate informed consent was obtained, the patient was placed in supine position on the operating room table. she arrived intubated from the ICU. she was given general anesthesia by the anesthesiologist. the neck was injected with lidocaine/epinephrine and prepped/draped. a 2cm transverse incision was made 2cm superior to the sternal notch. a lipectomy was performed with the bovie and an allis clamp. the infrahyoid strap muscles were divided along their midline raphe and retracted laterally with army/navy retractors. the inferior isthmus of the thyroid was divided with the bovie and the cricoid cartilage was exposed. an incision was made between the 1st and 2nd tracheal rings with a 15 blade and a nedra flap was created with heavy mets scissors. this was sutured to the overlying skin with a 2-0 ethobond. the trachea was suctioned, the endotracheal tube removed and the tracheostomy tube was placed. it was sutured at 4 corners using silk suture and an umbilical tie was placed around the neck. she was transported to the ICU in stable condition.
[2022-06-12] MEDS: Lidocaine 1% /Epi 1:100 (20ml) 20 ML Vial (12:25)
--- NOTE | 2022-06-12 12:29 | WOUNDNOTE ---
wound photo: left stump
--- NOTE | 2022-06-12 12:29 | WOUNDNOTE ---
wound photo: left arm
--- NOTE | 2022-06-12 12:30 | WOUNDNOTE ---
wound photo: right heel
[2022-06-12] MEDS: Lubricating Jelly 60 GM Tube 30 GM (12:34)
--- NOTE | 2022-06-12 14:39 | PCM.PN.ID ---
Physical Exam Narrative Trach placed, sedated, on vent Const no apparent distress Resp normal air movement and clear to auscultation bilaterally Cardio regular rate and regular rhythm GI soft to palpation, non-tender and non-distended Skin Skin Narrative: LLE bandaged ID ID: Route of nutrition/ use of supplements: [] Nutritional Intake: [] IV Site: [] Knight Catheter: [] Assessment & Plan Assessment/Plan (1) Septic shock: PLAN: On vent. On vanc for MR-CoNS L stump infection. Sputum cx with MR-CoNS and CRE pseudomonas. 06/07 started iv cipro. Temp better. L AKA incision less red. Now wound cx also with VRE; 06/09 changed vanc to linezolid Will follow
--- NOTE | 2022-06-12 15:22 | PN_ITS ---
Subjective Subjective Patient seen and examined. She remains intubated and sedated. RASS score is 0 she is able to open her eyes to voice call. Unable to do review of systems as she is intubated. She is for tracheostomy insertion today. Objective Data Objective Data Vital Signs: Vital Signs Temp Pulse Resp BP Pulse Ox O2 Del Method O2 Flow Rate 96.8 F L 99 20 H 100/74 100 Mechanical Ventilator 10 06/12/22 15:00 06/12/22 15:00 06/12/22 15:00 06/12/22 15:00 06/12/22 15:00 06/12/22 15:00 06/04/22 12:19 FiO2 30 06/12/22 15:00 Oxygen Flow Rate (L/min) 10 Oxygen Delivery Method Mechanical Ventilator Weight: 226 lb 13.69 oz Body Mass Index (BMI) 37.8 Intake & Output: Intake and Output for Last 24 Hours 06/10/22 06/11/22 06/12/22 23:59 23:59 23:59 Intake Total 3445.67 / 3913.17 4625.83 / 5095.83 1190.25 / 1190.25 Output Total 1075 / 1425 800 / 1000 550 / 550 Balance 2370.67 / 2488.17 3825.83 / 4095.83 640.25 / 640.25 Lab / Micro Data Result Diagrams: 06/12/22 05:25 06/12/22 05:25 Labs: Laboratory Results - last 24 hr 06/11/22 18:25: POC Glucose 286 H 06/11/22 23:41: POC Glucose 315 H 06/12/22 05:25: WBC 3.9 L, RBC 2.56 L, Hgb 7.6 L, Hct 24.1 L, MCV 94.1, MCH 29.7, MCHC 31.5 L, RDW Std Deviation 58.8 H, RDW Coeff of Magen 17.2 H, Plt Count 104 L, MPV 11.4, Immature Gran % (Auto) 0.500, Neut % (Auto) 48.9, Lymph % (Auto) 24.8, Preston % (Auto) 16.5 H, Eos % (Auto) 8.8 H, Baso % (Auto) 0.5, Absolute Neuts (auto) 1.9 L, Absolute Lymphs (auto) 0.96, Nucleated RBC % 0 06/12/22 05:25: Sodium 141, Potassium 3.7, Chloride 116 H, Carbon Dioxide 23.0, Anion Gap 2 L, BUN 63 H, Creatinine 1.45 H, Estim Creat Clear Calc 32.96, Est GFR (MDRD) Af Amer 46 L, Est GFR (MDRD) Non-Af 38 L, BUN/Creatinine Ratio 43.4 H , Glucose 283 H, Calcium 7.9 L, Total Bilirubin 0.50, AST 11 L, ALT 10 L, Alkaline Phosphatase 130 H, Total Protein 5.3 L, Albumin 1.3 L, Globulin 4.0, Albumin/Globulin Ratio 0.3 L Micro: Microbiology 06/04/22 22:25 Blood Culture (Wb) - Arm Left Blood Culture - Final No growth in 5 days. 06/04/22 18:30 Blood Culture (Wb) - Pic Blood Culture - Final No growth in 5 days. 06/05/22 03:52 Wound - Leg, Left Gram Stain - Final 06/05/22 03:52 Wound - Leg, Left Wound Culture - Final Staphylococcus haemolyticus Vancomycin Resist. E. faecium 06/04/22 13:05 Sputum, Induced/Lukens Gram Stain - Final 06/04/22 13:05 Sputum, Induced/Lukens Respiratory Culture - Final Staphylococcus haemolyticus Pseudomonas aeruginosa 06/04/22 20:00 Urine Catheter - Catheter Urine Culture - Final Culture exhibits no growth. 06/05/22 16:40 Stool C. difficile GDH Antigen & Toxins - Final 06/05/22 16:40 Stool C. difficile DNA Amplification - Final 05/28/22 11:30 Suture Gram Stain - Final 05/28/22 11:30 Suture Wound Culture - Final Vancomycin Resist. E. faecium Staphylococcus haemolyticus 05/24/22 06:35 Wound - Arm Left Gram Stain - Final 05/24/22 06:35 Wound - Arm Left Wound Culture - Final Pseudomonas aeruginosa Staphylococcus haemolyticus Staphylococcus epidermidis 05/24/22 06:35 Wound - Arm Left Anaerobic Culture - Final No anaerobic bacteria isolated. 05/19/22 14:30 Blood Culture (Wb) - Port Blood Culture - Final No growth in 5 days. 05/19/22 13:45 Blood Culture (Wb) - Port Blood Culture - Final No growth in 5 days. 05/20/22 17:40 Sputum, Induced/Lukens Gram Stain - Final 05/20/22 17:40 Sputum, Induced/Lukens Respiratory Culture - Final Escherichia coli 05/19/22 22:20 Transtracheal Aspirate Gram Stain - Final 05/19/22 22:20 Transtracheal Aspirate Respiratory Culture - Final Escherichia coli 05/20/22 04:25 Urine Catheter - Knight Urine Culture - Final Culture exhibits no growth. 05/20/22 04:25 Urine Catheter - Knight Legionella Antigen - Final 05/20/22 04:25 Urine Catheter - Knight Streptococcus pneumoniae Antigen (M - Final 05/19/22 22:20 Mucosa - Nasopharyngeal Respiratory Panel (PCR) - Final Rhythm Strip Rhythm Strip: A flutter Rate: 116 Ectopy: None Physical Exam Const alert Constitutional Narrative: Intubated HEENT normocephalic Mouth: dry mucous membranes Eyes PERRL and EOMs intact bilaterally Neck no lymphadenopathy and supple Lymph Lymphatic: no lymphadenopathy noted and no lymphedema noted Resp Resp Narrative: Remains intubated and sedated. Cardio regular rate, regular rhythm, S1 normal heart sound, S2 normal heart sound and no murmurs GI normal to inspection, nondistended, normoactive bowel sounds, soft to palpation, non-tender and non-distended Extremity Extremity Narrative: Left AKA stump with dressing bandage. Right lower extremity edematous. Neuro Neuro Narrative: Intubated, RASS score is 0 Assessment & Plan Assessment/Plan (1) Acute on chronic respiratory failure with hypoxia and hypercapnia: (2) Septic shock: (3) Atrial fibrillation with rapid ventricular response: PLAN: Plan #Acute hypoxic respiratory failure due to HFpEF and E coli pneumonia * Was intubated at the start of her stay also been admitted for E. coli pneumonia. She completed a course of meropenem was placed on Lasix and subsequently sent to the floor. However hospital course was complicated by worsening respiratory status so she was sent back to the ICU on 06/04/2022 and intubated again. * She remains intubated. * was on IV vancomycin. Sputum cultures grew staph hemolyticus sensitive to vancomycin. ID on board. She is now on IV ciprofloxacin and linezolid * Now on IV Cipro. Awaiting tracheostomy today. Will also need PEG tube placement. * Breathing treatments with bronchodilators. Titrate oxygen to maintain saturation above 90%. #Hypernatremia: Resolved #Left lower extremity wound infection * Status post left AKA in the left AKA stump was having some discharge. Wound cultures grew staph hemolyticus and Enterococcus vacation. * On IV ciprofloxacin. ID on board. * #Septic shock * Was due to ESBL E. coli. Resolved. Has been off pressors for more than a week * #A-fib: On p.o. amiodarone #Hypokalemia:resolved #MIKE on CKD: resolved. #Type 2 diabetes mellitus: On insulin sliding scale.? 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 Intact dressing over stump. Will monitor #Hypothyroidism;on synthroid.? #CAD s/p stent: On aspirin and statin #A-fib: Still remains mildly tachycardic.? Now on p.o. amiodarone. #Dysphagia: * Remains intubated and sedated. Family has opted for PEG tube. To have PEG tube inserted during this admission. DVT prophylaxis: On heparin Total time spent on evaluation and management of patient, reviewing chart and specialist notes, discussion with nursing and ancillary staff as well as documentation: 40 mins Charges/Coding Visit Charges Inpatient E&M: 96614 Subs Hosp L2
[2022-06-12 16:11] LABS: Bedside Glucose 206 mg/dL (74-106)
[2022-06-12 18:40] LABS: Bedside Glucose 184 mg/dL (74-106)
[2022-06-13] VITALS (35 sets, daily range): BP systolic 80–112; BP diastolic 53–78; PULSE 97–120; RESP 12–22; TEMP 36.2–37.2; O2SAT 94–100; BMI 37.1
[2022-06-13] MEDS: Insulin Lispro 100 UNIT/ML INSULN.PEN SC ×3 (00:19→11:28)
[2022-06-13] MEDS: Metoclopramide 10 MG/2 ML Vial 5 MG IV ×4 (00:19→17:24)
[2022-06-13] MEDS: Ipratropium 0.5 MG/2.5 ML SOLUTION INHALATION ×4 (00:35→19:31)
[2022-06-13 00:56] LABS: Bedside Glucose 202 mg/dL (74-106)
[2022-06-13] MEDS: Menthol/Lanolin/Calamine/Znox 113 GM Tube 1 APPLIC TOPICAL ×2 (05:24→21:29)
[2022-06-13] MEDS: CHLORHEXIDINE GLUC 2% CLOTH 1 EACH TOWELETTE TOPICAL (05:25)
[2022-06-13] MEDS: Nystatin Powder 15gm Bottle 1 APPLIC TOPICAL ×3 (05:25→21:29)
[2022-06-13 05:26] LABS: Absolute Lymphocyte Count 1.07 X10^3/uL (0.83-4.51); Absolute Neutrophil Count 4.5 X10^3/uL (2.0-7.7); Basophil# 0.02 X10^3/uL; Basophil% 0.3 % (0-1); Eosinophil# 0.01 X10^3/uL; Eosinophils% 0.2 % (0-5); Hematocrit 30.1 % (37-47); Hemoglobin 9.5 g/dL (12.0-15.0); Lymphocyte # 1.07 X10^3/ul (0.83-4.51); Lymphocyte % 17.3 % (19-41); Mean Corp Hgb Conc 31.6 g/dL (32-36); Mean Corpuscular Hgb 29.4 pg (27.0-32.0); Mean Corpuscular Volume 93.2 fL (81-99); Mean Platelet Vol. 11.6 fl (6.2-12.0); Monocyte# 0.61 X10^3/uL; Monocyte% 9.9 % (0-10); NRBC Flagged by Analyzer 0 % (0-5); Neutrophil # 4.45 X10^3/uL (2.7-7.7); Neutrophil % 71.8 % (47-70); Platelet Count 153 K/mm3 (150-450); RBC Distribution Width CV 17.1 % (11.6-14.6); RBC Distribution Width SD 57.8 fl (35.1-43.9); Red Blood Count 3.23 M/mm3 (4.2-5.4); White Blood Count 6.2 K/mm3 (4.4-11.0)
[2022-06-13] MEDS: Heparin Injection (Vial) 5,000 UNIT/ML VIAL 5000 UNIT SC ×3 (05:31→21:29)
[2022-06-13 05:43] LABS: Anion Gap 4 (5-15); BUN 57 mg/dL (7-18); BUN/Creat Ratio 38.3 RATIO (10-20); Calcium,Total 7.9 mg/dL (8.5-10.1); Chloride 115 mmol/L (98-107); Creatinine, Serum 1.49 mg/dL (0.55-1.02); EST Glomerular Filtration Rate 37 mL/min (>60); Est Glom Filt Rate - Afr Amer 45 mL/min (>60); Estimated Creatinine Clearance 32.07 ml/min; Glucose 204 mg/dL (74-106); Potassium 3.9 mmol/L (3.5-5.1); Sodium Level 141 mmol/L (136-145)
[2022-06-13 05:55] LABS: Bedside Glucose 161 mg/dL (74-106)
--- NOTE | 2022-06-13 07:09 | PN.CC_ITS ---
Assessment & Plan Assessment/Plan (1) Septic shock: PLAN: Plan RECOMMENDATIONS: 1. Continue assist-control mode mechanical ventilation. Wean FiO2 and PEEP to maintain saturations at or above 90%. 2. Antimicrobials per ID recommendations. 3. Diuresis as tolerated by hemodynamics and renal function. 4. Resume tube feeds once PEG tube is placed. 5. Continue appropriate ICU prophylaxis. 6. Disposition planning per case management. IMPRESSIONS: 1. Septic shock Resolved. Multiple sources of infection have been identified during this hospitalization, including ESBL E. coli pneumonia and wound VRE. The patient remains hemodynamically stable off of vasopressor support. Antibiotics are being continued per ID recommendations. 2. Encephalopathy Improved. Most likely related to acute CO2 retention. It is unclear as to whether the patient had access to a BiPAP at her nursing facility and whether or not it was being utilized. The patient continues to fail to use BiPAP following extubation in the hospital. Failure to use BiPAP will likely lead to recurrent metabolic encephalopathy secondary to elevated CO2 levels. Therefore, plan to proceed with tracheostomy and PEG tube placement. 3. Acute on chronic combined respiratory failure The patient did grow ESBL E. coli in her sputum indicating pneumonia on presentation as an etiology of her initial respiratory failure. The patient has had multiple hospitalizations related to respiratory failure in the setting of noncompliance with PAP therapy, which ultimately leads to CO2 narcosis and the need for intubation. In light of these repeated episodes, plan is to proceed with tracheostomy and PEG tube placement. LTAC disposition is pending. 4. Acute on chronic kidney disease Stable. We will continue tube feeds with free water flushes. Most likely prerenal in etiology in the setting of #1. Creatinine has worsened recently, likely secondary to decreased perfusion with acidosis. We will plan to continue to monitor urine output for now. No current indication for renal replacement therapy. 5. 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 Continue to monitor H&H daily. Transfuse if hemoglobin drops below 7 g/dL. Continue PPI therapy as ordered. Sutures on AKA appear to be holding at this time despite anasarca. Continue Reglan as tolerated along with tube feeds. TIME: 32 minutes of critical care time, independent of procedures, was spent addressing the patient septic shock, encephalopathy, acute on chronic combined respiratory failure, acute on chronic kidney disease, review of all data and collaboration with the care team. Subjective Subjective The patient was seen and examined at the bedside this morning. Events from the last 24 hours have been reviewed. The patient is currently afebrile, hemodynamically stable and maintaining appropriate oxygen saturations on assist control mode of mechanical ventilation with an FiO2 of 30%. The patient underwent successful tracheostomy placement yesterday, with tentative plans for PEG tube placement today. Objective Data Objective Data The patient's most recent lab work, culture data and imaging studies have all been personally reviewed.? Surface echocardiogram from May 08 demonstrated normal LV size and function with an ejection fraction of 55%.? Mild to moderate global RV systolic dysfunction was noted along with a pulmonary artery systolic pressure of 50 mmHg.? Sputum culture dated May 21 was positive for ESBL E. coli. Sputum from June 04 was positive for Pseudomonas aeruginosa. Leg culture was positive for VRE. Vital Signs: Vital Signs Temp Pulse Resp BP Pulse Ox O2 Del Method O2 Flow Rate 97.6 F L 105 H 20 H 97/66 100 Mechanical Ventilator 10 06/13/22 05:00 06/13/22 07:00 06/13/22 07:00 06/13/22 07:00 06/13/22 07:00 06/13/22 07:00 06/04/22 12:19 FiO2 30 06/13/22 07:00 Oxygen Flow Rate (L/min) 10 Oxygen Delivery Method Mechanical Ventilator Weight: 222 lb 14.197 oz Body Mass Index (BMI) 37.1 Intake & Output: Intake and Output for Last 24 Hours 06/11/22 06/12/22 06/13/22 23:59 23:59 23:59 Intake Total 4625.83 / 5095.83 1479.75 / 1492.25 78.75 / 78.75 Output Total 800 / 1000 1000 / 1300 400 / 400 Balance 3825.83 / 4095.83 479.75 / 192.25 -321.25 / -321.25 Lab / Micro Data Attestation: I reviewed the patient's lab results. Result Diagrams: 06/13/22 05:00 06/13/22 05:00 Labs: Laboratory Results - last 24 hr 06/12/22 11:08: POC Glucose 206 H 06/12/22 18:03: POC Glucose 184 H 06/13/22 00:16: POC Glucose 202 H 06/13/22 05:00: WBC 6.2, RBC 3.23 L, Hgb 9.5 L, Hct 30.1 L, MCV 93.2, MCH 29.4, MCHC 31.6 L, RDW Std Deviation 57.8 H, RDW Coeff of Magen 17.1 H, Plt Count 153, MPV 11.6, Immature Gran % (Auto) 0.500, Neut % (Auto) 71.8 H, Lymph % (Auto) 17.3 L, [place] % (Auto) 9.9, Eos % (Auto) 0.2, Baso % (Auto) 0.3, Absolute Neuts (auto) 4.5, Absolute Lymphs (auto) 1.07, Nucleated RBC % 0 06/13/22 05:00: Sodium 141, Potassium 3.9, Chloride 115 H, Carbon Dioxide 22.0, Anion Gap 4 L, BUN 57 H, Creatinine 1.49 H, Estim Creat Clear Calc 32.07, Est GFR (MDRD) Af Amer 45 L, Est GFR (MDRD) Non-Af 37 L, BUN/Creatinine Ratio 38.3 H , Glucose 204 H, Calcium 7.9 L 06/13/22 05:23: POC Glucose 161 H Micro: Microbiology 06/04/22 22:25 Blood Culture (Wb) - Arm Left Blood Culture - Final No growth in 5 days. 06/04/22 18:30 Blood Culture (Wb) - Pic Blood Culture - Final No growth in 5 days. 06/05/22 03:52 Wound - Leg, Left Gram Stain - Final 06/05/22 03:52 Wound - Leg, Left Wound Culture - Final Staphylococcus haemolyticus Vancomycin Resist. E. faecium 06/04/22 13:05 Sputum, Induced/Lukens Gram Stain - Final 06/04/22 13:05 Sputum, Induced/Lukens Respiratory Culture - Final Staphylococcus haemolyticus Pseudomonas aeruginosa 06/04/22 20:00 Urine Catheter - Catheter Urine Culture - Final Culture exhibits no growth. 06/05/22 16:40 Stool C. difficile GDH Antigen & Toxins - Final 06/05/22 16:40 Stool C. difficile DNA Amplification - Final 05/28/22 11:30 Suture Gram Stain - Final 05/28/22 11:30 Suture Wound Culture - Final Vancomycin Resist. E. faecium Staphylococcus haemolyticus 05/24/22 06:35 Wound - Arm Left Gram Stain - Final 05/24/22 06:35 Wound - Arm Left Wound Culture - Final Pseudomonas aeruginosa Staphylococcus haemolyticus Staphylococcus epidermidis 05/24/22 06:35 Wound - Arm Left Anaerobic Culture - Final No anaerobic bacteria isolated. 05/19/22 14:30 Blood Culture (Wb) - Port Blood Culture - Final No growth in 5 days. 05/19/22 13:45 Blood Culture (Wb) - Port Blood Culture - Final No growth in 5 days. 05/20/22 17:40 Sputum, Induced/Lukens Gram Stain - Final 05/20/22 17:40 Sputum, Induced/Lukens Respiratory Culture - Final Escherichia coli 05/19/22 22:20 Transtracheal Aspirate Gram Stain - Final 05/19/22 22:20 Transtracheal Aspirate Respiratory Culture - Final Escherichia coli 05/20/22 04:25 Urine Catheter - Knight Urine Culture - Final Culture exhibits no growth. 05/20/22 04:25 Urine Catheter - Knight Legionella Antigen - Final 05/20/22 04:25 Urine Catheter - Knight Streptococcus pneumoniae Antigen (M - Final 05/19/22 22:20 Mucosa - Nasopharyngeal Respiratory Panel (PCR) - Final Radiography Diagnostic Testing: Radiology Impression Chest X-Ray 06/11/22 06:45 IMPRESSION: 1. Bibasilar airspace disease and moderate pleural effusions. Findings may indicate atelectasis or pneumonia. 2. Endotracheal tube with tip 3 cm above the ousmane. Electronically Signed: Sony Pierre MD at 7:24 EDT , Rhythm Strip Rhythm Strip: A flutter Rate: 116 Ectopy: None Physical Exam Const alert Constitutional Narrative: Remains mechanically ventilated. Alert and interactive. HEENT normocephalic and head/scalp atraumatic Eyes PERRL and EOMs intact bilaterally Neck supple Neck Narrative: Stable tracheostomy site. General: trachea midline Chest inspection of chest normal Resp normal respiratory effort Auscultation: diminished lung sounds Cardio regular rate and regular rhythm GI normal to inspection, nondistended, normoactive bowel sounds Extremity Extremity Narrative: Left AKA Skin General Skin Exam: venous stasis and dermatitis Neuro moves all extremities and no focal motor deficits Charges/Coding Procedures Hospitalists Procedures: 19356 Critial Care 1st Hr
[2022-06-13] MEDS: Chlorhexidine 15 ML PO ×2 (08:23→21:29)
--- NOTE | 2022-06-13 09:48 | CASEMGMT ---
Addendum entered by Erin Galo 06/13/22 14:15: TC to pt son to update on status of LTAC, left message requesting returned call. Addendum entered by Erin Galo 06/13/22 12:54: [id number]- Uploaded the following information via [employer] per report of Radha at [facility]: today's intesivist note, trach op report, notes from dates intubated and extubated, SBT attempt today. Addendum entered by Erin Galo 06/13/22 10:23: Received tc back from [facility], there is not a bed available until at least Sunday and this is not guaranteed. Will await acceptance from [facility] and notify son. Original Note: TC to [facility] to see if there were changes in bed availability since yesterday morning per son's request, left message on [facility]'s vm.
[2022-06-13] MEDS: Ciprofloxacin 400 MG/200 ML BAG 200 MG IV ×2 (09:49→21:26)
--- NOTE | 2022-06-13 10:44 | PN_ITS ---
Subjective Subjective Patient seen and examined. She was lying calmly in bed. She had tracheostomy yesterday. She verbally respond to questions. Unable to do comprehensive review of systems. Objective Data Objective Data Vital Signs: Vital Signs Temp Pulse Resp BP Pulse Ox O2 Del Method O2 Flow Rate 97.3 F L 107 H 12 104/70 99 Mechanical Ventilator 10 06/13/22 10:00 06/13/22 10:00 06/13/22 10:00 06/13/22 10:00 06/13/22 10:00 06/13/22 10:00 06/04/22 12:19 FiO2 30 06/13/22 10:00 Oxygen Flow Rate (L/min) 10 Oxygen Delivery Method Mechanical Ventilator Weight: 222 lb 14.197 oz Body Mass Index (BMI) 37.1 Intake & Output: Intake and Output for Last 24 Hours 06/11/22 06/12/22 06/13/22 23:59 23:59 23:59 Intake Total 4625.83 / 5095.83 1479.75 / 1492.25 217.92 / 217.92 Output Total 800 / 1000 1000 / 1300 400 / 400 Balance 3825.83 / 4095.83 479.75 / 192.25 -182.08 / -182.08 Lab / Micro Data Result Diagrams: 06/13/22 05:00 06/13/22 05:00 Labs: Laboratory Results - last 24 hr 06/12/22 11:08: POC Glucose 206 H 06/12/22 18:03: POC Glucose 184 H 06/13/22 00:16: POC Glucose 202 H 06/13/22 05:00: WBC 6.2, RBC 3.23 L, Hgb 9.5 L, Hct 30.1 L, MCV 93.2, MCH 29.4, MCHC 31.6 L, RDW Std Deviation 57.8 H, RDW Coeff of Magen 17.1 H, Plt Count 153, MPV 11.6, Immature Gran % (Auto) 0.500, Neut % (Auto) 71.8 H, Lymph % (Auto) 17.3 L, [place] % (Auto) 9.9, Eos % (Auto) 0.2, Baso % (Auto) 0.3, Absolute Neuts (auto) 4.5, Absolute Lymphs (auto) 1.07, Nucleated RBC % 0 06/13/22 05:00: Sodium 141, Potassium 3.9, Chloride 115 H, Carbon Dioxide 22.0, Anion Gap 4 L, BUN 57 H, Creatinine 1.49 H, Estim Creat Clear Calc 32.07, Est GFR (MDRD) Af Amer 45 L, Est GFR (MDRD) Non-Af 37 L, BUN/Creatinine Ratio 38.3 H , Glucose 204 H, Calcium 7.9 L 06/13/22 05:23: POC Glucose 161 H Micro: Microbiology 06/04/22 22:25 Blood Culture (Wb) - Arm Left Blood Culture - Final No growth in 5 days. 06/04/22 18:30 Blood Culture (Wb) - Pic Blood Culture - Final No growth in 5 days. 06/05/22 03:52 Wound - Leg, Left Gram Stain - Final 06/05/22 03:52 Wound - Leg, Left Wound Culture - Final Staphylococcus haemolyticus Vancomycin Resist. E. faecium 06/04/22 13:05 Sputum, Induced/Lukens Gram Stain - Final 06/04/22 13:05 Sputum, Induced/Lukens Respiratory Culture - Final Staphylococcus haemolyticus Pseudomonas aeruginosa 06/04/22 20:00 Urine Catheter - Catheter Urine Culture - Final Culture exhibits no growth. 06/05/22 16:40 Stool C. difficile GDH Antigen & Toxins - Final 06/05/22 16:40 Stool C. difficile DNA Amplification - Final 05/28/22 11:30 Suture Gram Stain - Final 05/28/22 11:30 Suture Wound Culture - Final Vancomycin Resist. E. faecium Staphylococcus haemolyticus 05/24/22 06:35 Wound - Arm Left Gram Stain - Final 05/24/22 06:35 Wound - Arm Left Wound Culture - Final Pseudomonas aeruginosa Staphylococcus haemolyticus Staphylococcus epidermidis 05/24/22 06:35 Wound - Arm Left Anaerobic Culture - Final No anaerobic bacteria isolated. 05/19/22 14:30 Blood Culture (Wb) - Port Blood Culture - Final No growth in 5 days. 05/19/22 13:45 Blood Culture (Wb) - Port Blood Culture - Final No growth in 5 days. 05/20/22 17:40 Sputum, Induced/Lukens Gram Stain - Final 05/20/22 17:40 Sputum, Induced/Lukens Respiratory Culture - Final Escherichia coli 05/19/22 22:20 Transtracheal Aspirate Gram Stain - Final 05/19/22 22:20 Transtracheal Aspirate Respiratory Culture - Final Escherichia coli 05/20/22 04:25 Urine Catheter - Knight Urine Culture - Final Culture exhibits no growth. 05/20/22 04:25 Urine Catheter - Knight Legionella Antigen - Final 05/20/22 04:25 Urine Catheter - Knight Streptococcus pneumoniae Antigen (M - Final 05/19/22 22:20 Mucosa - Nasopharyngeal Respiratory Panel (PCR) - Final Rhythm Strip Rhythm Strip: A flutter Rate: 116 Ectopy: None Physical Exam Const alert Constitutional Narrative: Intubated via tracheostomy Orientation / Consciousness: lethargic HEENT normocephalic, head/scalp atraumatic and moist oral mucous membranes Eyes PERRL and EOMs intact bilaterally Neck no lymphadenopathy, supple and no JVD Lymph Lymphatic: no lymphadenopathy noted and no lymphedema noted Resp Resp Narrative: Remains intubated; now on vent via tracheostomy Cardio regular rhythm, S1 normal heart sound, S2 normal heart sound and no murmurs Cardio Narrative: persistently Tachycardic GI normal to inspection, nondistended, normoactive bowel sounds, soft to palpation, non-tender and non-distended Extremity normal capillary refill, no clubbing, cyanosis or edema and no calf tenderness Extremity Narrative: Left AKA stump with dressing bandage. Right lower extremity edematous. Skin Skin Narrative: left AKA, intact stump General Skin Exam: no breakdown Neuro Neuro Narrative: Intubated, RASS score is 0, alert, mumbles in response to questions Motor Exam: strength 5/5 throughout Psych Psych Narrative: flat affect Assessment & Plan Assessment/Plan (1) Acute on chronic respiratory failure with hypoxia and hypercapnia: (2) Septic shock: (3) Atrial fibrillation with rapid ventricular response: PLAN: Plan #Acute hypoxic respiratory failure due to HFpEF and E coli pneumonia * Was intubated at the start of her stay also been admitted for E. coli pneumonia. She completed a course of meropenem was placed on Lasix and subsequently sent to the floor. However hospital course was complicated by worsening respiratory status so she was sent back to the ICU on 06/04/2022 and intubated again. * She remains intubated. * was on IV vancomycin. Sputum cultures grew staph hemolyticus sensitive to vancomycin. ID on board. She is now on IV ciprofloxacin and linezolid * Now on IV Cipro. Will also need PEG tube placement. * Breathing treatments with bronchodilators. Titrate oxygen to maintain saturation above 90%. * Had tracheostomy done yesterday. Now on ventilator via trach. #Hypernatremia: Resolved #Left lower extremity wound infection * Status post left AKA in the left AKA stump was having some discharge. Wound cultures grew staph hemolyticus and Enterococcus vacation. * On IV ciprofloxacin. ID on board. * #Septic shock * Was due to ESBL E. coli. Resolved. Has been off pressors for more than a week * #A-fib: On p.o. amiodarone #Hypokalemia:resolved #MIKE on CKD: resolved. #Type 2 diabetes mellitus: On insulin sliding scale.? 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 Intact dressing over stump. Will monitor #Hypothyroidism;on synthroid.? #CAD s/p stent: On aspirin and statin #A-fib: Still remains mildly tachycardic.? Now on p.o. amiodarone. #Dysphagia: * Remains intubated and sedated. Family has opted for PEG tube. To have PEG tube inserted during this admission. DVT prophylaxis: On heparin Total time spent on evaluation and management of patient, reviewing chart and specialist notes, discussion with nursing and ancillary staff as well as documentation: 43 mins Charges/Coding Visit Charges Inpatient E&M: 75277 Subs Hosp L2
[2022-06-13 11:50] LABS: Bedside Glucose 169 mg/dL (74-106)
[2022-06-13] MEDS: DiphenhydrAMINE 50 MG/ML Syringe IV (12:51)
[2022-06-13] MEDS: Midazolam 2 MG/2 ML Syringe IV (12:52)
[2022-06-13] MEDS: Vital AF 1.2 Cal Liquid 1,000 ML 20 ML GT (14:59)
--- NOTE | 2022-06-13 15:28 | PCM.PN.ID ---
Physical Exam Narrative Awake, feeling ok, no fever Const alert and no apparent distress Resp normal air movement and clear to auscultation bilaterally Cardio regular rate and regular rhythm GI soft to palpation, non-tender and non-distended Skin Skin Narrative: wound vac on L stump ID ID: Route of nutrition/ use of supplements: [] Nutritional Intake: [] IV Site: [] Knight Catheter: [] Assessment & Plan Assessment/Plan (1) Septic shock: PLAN: On vent. On vanc for MR-CoNS L stump infection. Sputum cx with MR-CoNS and CRE pseudomonas. 06/07 started iv cipro. Temp better. L AKA incision less red, woun vac in place. Now wound cx also with VRE; 06/09 changed vanc to linezolid. Plan on stopping abx in next few days. Will follow
--- NOTE | 2022-06-13 16:04 | OP.EGD_ITS ---
Patient Name: Monique Lincoln Procedure Date: 06/13/2022 12:26 PM Date of : 1955 Age: 67 Procedure: Upper GI endoscopy Indications: Dysphagia Providers: Torrey Mccrary DO Medicines: Monitored Anesthesia Care Patient Profile: This is a 67 year old female. Refer to note in patient chart for documentation of history and physical. Patient has symptoms of chronic dysphagia. Complications: No immediate complications. Procedure: Pre-Anesthesia Assessment: - Prior to the procedure, a History and Physical was performed, and patient medications and allergies were reviewed. The patient is competent. The risks and benefits of the procedure and the sedation options and risks were discussed with the patient. All questions were answered and informed consent was obtained. Patient identification and proposed procedure were verified by the physician in the pre-procedure area. Mental Status Examination: alert and oriented. Airway Examination: normal oropharyngeal airway and neck mobility. Respiratory Examination: clear to auscultation. CV Examination: normal. Prophylactic Antibiotics: The patient does not require prophylactic antibiotics. Prior Anticoagulants: The patient has taken no previous anticoagulant or antiplatelet agents. ASA Grade Assessment: II - A patient with mild systemic disease. After reviewing the risks and benefits, the patient was deemed in satisfactory condition to undergo the procedure. The anesthesia plan was to use monitored anesthesia care (MAC). Immediately prior to administration of medications, the patient was re-assessed for adequacy to receive sedatives. The heart rate, respiratory rate, oxygen saturations, blood pressure, adequacy of pulmonary ventilation, and response to care were monitored throughout the procedure. The physical status of the patient was re-assessed after the procedure. After obtaining informed consent, the endoscope was passed under direct vision. Throughout the procedure, the patient's blood pressure, pulse, and oxygen saturations were monitored continuously. The gastroscope was introduced through the mouth, and advanced to the second part of duodenum. Scope In: 12:33:26 PM Scope Out: 12:48:33 PM Total Procedure Duration Time 0 hours 15 minutes 7 seconds Findings: The examined esophagus was normal. Patchy mildly erythematous mucosa without bleeding was found in the gastric body. Biopsies were taken with a cold forceps for histology. Estimated blood loss was minimal. The patient was placed in the supine position for PEG placement. The stomach was insufflated to appose gastric and abdominal santana. A site was located in the cardia with excellent transillumination for placement. The abdominal wall was marked and prepped in a sterile manner. The area was anesthetized with 1 mL of 0.5% lidocaine. The trocar needle was introduced through the abdominal wall and into the stomach under direct endoscopic view. A snare was introduced through the endoscope and opened in the gastric lumen. The guide wire was passed through the trocar and into the open snare. The snare was closed around the guide wire. The endoscope and snare were removed, pulling the wire out through the mouth. A skin incision was made at the site of needle insertion. The endoscopically removable 20 Fr Bard gastrostomy tube was lubricated. The G-tube was tied to the guide wire and pulled through the mouth and into the stomach. The trocar needle was removed, and the gastrostomy tube was pulled out from the stomach through the skin. The external bumper was attached to the gastrostomy tube, and the tube was cut to remove the guide wire. The final position of the gastrostomy tube was confirmed by relook endoscopy, and skin marking noted to be 4 cm at the external bumper. The final tension and compression of the abdominal wall by the PEG tube and external bumper were checked and revealed that the bumper was loose and lightly touching the skin. The feeding tube was capped, and the tube site cleaned and dressed. The in the duodenum was normal. Impression: - Normal esophagus. - Erythematous mucosa in the gastric body. Biopsied. - Normal. - An endoscopically removable PEG placement was successfully completed. Recommendation: - [facility] to [facility] for [facility] care. - Continue present medications. Procedure Code(s): --- Professional --- 09432, Esophagogastroduodenoscopy, flexible, transoral; with directed placement of percutaneous gastrostomy tube 02556, Esophagogastroduodenoscopy, flexible, transoral; with biopsy, single or multiple CPT copyright 2017 [employer]. All rights reserved. The codes documented in this report are preliminary and upon postdoctoral research fellow review may be revised to meet current compliance requirements. Torrey Mccrary DO 06/13/2022 4:04:06 PM This report has been signed electronically. Number of Addenda: 0 Note Initiated On: 06/13/2022 12:26 PM
--- NOTE | 2022-06-13 16:04 | OP.CCLET_ITS ---
06/13/2022 Geovanna Mott Re : Upper GI endoscopy procedure for Monique Lincoln Dear [place] This procedure was performed on Monday, June 13, 2022. My impressions and recommendations are as follows: Impressions : - Normal esophagus. - Erythematous mucosa in the gastric body. Biopsied. - Normal. - An endoscopically removable PEG placement was successfully completed. Recommendations : - Return patient to [facility] for [facility] care. - Continue present medications. My findings are described in the full procedure note, which is enclosed. If I can be of further assistance, please feel free to contact me at . Sincerely, Torrey Mccrary, 06/13/2022 4:04:06 PM This report has been signed electronically.
[2022-06-13] MEDS: Juven (unflavored) Packet 1 PACKET GT (17:24)
[2022-06-13] MEDS: Furosemide 10 MG/ML Liquid 20 MG GT (17:24)
[2022-06-13 18:00] LABS: Bedside Glucose 137 mg/dL (74-106)
[2022-06-13] MEDS: Linezolid 600 MG Tablet GT (21:28)
[2022-06-13] MEDS: Amiodarone 200 MG Tablet NG (21:28)
[2022-06-13] MEDS: Senna/Docusate Sodium 1 Tablet 2 TABLET NG (21:28)
[2022-06-14] VITALS (35 sets, daily range): BP systolic 77–109; BP diastolic 44–69; PULSE 20–125; RESP 12–28; TEMP 36.6–37.2; O2SAT 91–114; BMI 37.8
[2022-06-14] MEDS: Ipratropium 0.5 MG/2.5 ML SOLUTION INHALATION ×4 (00:06→19:12)
[2022-06-14] MEDS: Insulin Lispro 100 UNIT/ML INSULN.PEN SC ×3 (00:40→11:15)
[2022-06-14] MEDS: Metoclopramide 10 MG/2 ML Vial 5 MG IV ×4 (00:40→17:08)
[2022-06-14 01:10] LABS: Bedside Glucose 157 mg/dL (74-106)
[2022-06-14] MEDS: Heparin Injection (Vial) 5,000 UNIT/ML VIAL 5000 UNIT SC ×3 (05:06→21:14)
[2022-06-14] MEDS: Levothyroxine 125 MCG Tablet GT (05:07)
[2022-06-14] MEDS: Nystatin Powder 15gm Bottle 1 APPLIC TOPICAL ×3 (05:07→21:15)
[2022-06-14 05:17] LABS: Absolute Lymphocyte Count 1.11 X10^3/uL (0.83-4.51); Absolute Neutrophil Count 8.6 X10^3/uL (2.0-7.7); Basophil# 0.03 X10^3/uL; Basophil% 0.3 % (0-1); Eosinophil# 0.21 X10^3/uL; Eosinophils% 1.9 % (0-5); Hematocrit 24.9 % (37-47); Hemoglobin 7.8 g/dL (12.0-15.0); Lymphocyte # 1.11 X10^3/ul (0.83-4.51); Lymphocyte % 10.3 % (19-41); Mean Corp Hgb Conc 31.3 g/dL (32-36); Mean Corpuscular Hgb 29.7 pg (27.0-32.0); Mean Corpuscular Volume 94.7 fL (81-99); Mean Platelet Vol. 10.9 fl (6.2-12.0); Monocyte# 0.84 X10^3/uL; Monocyte% 7.8 % (0-10); NRBC Flagged by Analyzer 0 % (0-5); Neutrophil # 8.58 X10^3/uL (2.7-7.7); Neutrophil % 79.2 % (47-70); Platelet Count 145 K/mm3 (150-450); RBC Distribution Width CV 17.2 % (11.6-14.6); RBC Distribution Width SD 58.7 fl (35.1-43.9); Red Blood Count 2.63 M/mm3 (4.2-5.4); White Blood Count 10.8 K/mm3 (4.4-11.0)
[2022-06-14 05:29] LABS: Anion Gap 2 (5-15); BUN 52 mg/dL (7-18); BUN/Creat Ratio 37.4 RATIO (10-20); Calcium,Total 7.9 mg/dL (8.5-10.1); Chloride 116 mmol/L (98-107); Creatinine, Serum 1.39 mg/dL (0.55-1.02); EST Glomerular Filtration Rate 40 mL/min (>60); Est Glom Filt Rate - Afr Amer 49 mL/min (>60); Estimated Creatinine Clearance 34.38 ml/min; Glucose 160 mg/dL (74-106); Potassium 3.7 mmol/L (3.5-5.1); Sodium Level 141 mmol/L (136-145)
[2022-06-14 05:31] LABS: Bedside Glucose 152 mg/dL (74-106)
--- NOTE | 2022-06-14 07:30 | PN.CC_ITS ---
Assessment & Plan Assessment/Plan (1) Septic shock: PLAN: Plan RECOMMENDATIONS: 1. Continue assist-control mode mechanical ventilation. Wean FiO2 and PEEP to maintain saturations at or above 90%. 2. Antimicrobials per ID recommendations. 3. Diuresis as tolerated by hemodynamics and renal function. 4. Continue tube feeds as tolerated. 5. Continue appropriate ICU prophylaxis. 6. LTACH precertification is pending. IMPRESSIONS: 1. Septic shock Resolved. Multiple sources of infection have been identified during this hospit alization, including ESBL E. coli pneumonia and wound VRE. The patient remains hemodynamically stable off of vasopressor support. Antibiotics are being continued per ID recommendations. 2. Encephalopathy Improved. Most likely related to acute CO2 retention. It is unclear as to whether the patient had access to a BiPAP at her nursing facility and whether or not it was being utilized. The patient continues to fail to use BiPAP following extubation in the hospital. Failure to use BiPAP will likely lead to recurrent metabolic encephalopathy secondary to elevated CO2 levels. Therefore, the patient ultimately underwent successful tracheostomy and PEG tube placement. 3. Acute on chronic combined respiratory failure The patient did grow ESBL E. coli in her sputum indicating pneumonia on presentation as an etiology of her initial respiratory failure. The patient has had multiple hospitalizations related to respiratory failure in the setting of noncompliance with PAP therapy, which ultimately leads to CO2 narcosis and the need for intubation. In light of these repeated episodes, the patient underwent tracheostomy and PEG tube placement. LTACH disposition is pending. 4. Acute on chronic kidney disease Stable. We will continue tube feeds with free water flushes. Most likely prerenal in etiology in the setting of #1. Creatinine has worsened recently, likely secondary to decreased perfusion with acidosis. We will plan to continue to monitor urine output for now. No current indication for renal replacement therapy. 5. 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 Continue to monitor H&H daily. Transfuse if hemoglobin drops below 7 g/dL. Continue PPI therapy as ordered. Sutures on AKA appear to be holding at this time despite anasarca. Continue Reglan as tolerated along with tube feeds. TIME: 31 minutes of critical care time, independent of procedures, was spent addressing the patient septic shock, encephalopathy, acute on chronic combined respiratory failure, acute on chronic kidney disease, review of all data and collaboration with the care team. Subjective Subjective The patient was seen and examined at the bedside this morning. Events from the last 24 hours have been reviewed. The patient is currently afebrile, hemodynamically stable and maintaining appropriate oxygen saturations on assist control mode mechanical ventilation with an FiO2 requirement of 30%. The patient underwent successful PEG tube placement yesterday. Creatinine is stable. Precertification for LTAC is pending. Objective Data Objective Data The patient's most recent lab work, culture data and imaging studies have all been personally reviewed.? Surface echocardiogram from May 08 demonstrated normal LV size and function with an ejection fraction of 55%.? Mild to moderate global RV systolic dysfunction was noted along with a pulmonary artery systolic pressure of 50 mmHg.? Sputum culture dated May 21 was positive for ESBL E. coli. Sputum from June 04 was positive for Pseudomonas aeruginosa. Leg culture was positive for VRE. Vital Signs: Vital Signs Temp Pulse Resp BP Pulse Ox O2 Del Method O2 Flow Rate 98.8 F 116 H 14 89/65 L 96 Mechanical Ventilator 10 06/14/22 07:00 06/14/22 07:00 06/14/22 07:00 06/14/22 07:00 06/14/22 07:00 06/14/22 07:00 06/04/22 12:19 FiO2 30 06/14/22 07:00 Oxygen Flow Rate (L/min) 10 Oxygen Delivery Method Mechanical Ventilator Weight: 226 lb 13.69 oz Body Mass Index (BMI) 37.8 Intake & Output: Intake and Output for Last 24 Hours 06/12/22 06/13/22 06/14/22 23:59 23:59 23:59 Intake Total 1479.75 / 1492.25 664.19 / 801.69 622.83 / 622.83 Output Total 1000 / 1300 1025 / 1200 400 / 400 Balance 479.75 / 192.25 -360.81 / -398.31 222.83 / 222.83 Lab / Micro Data Attestation: I reviewed the patient's lab results. Result Diagrams: 06/14/22 05:00 06/14/22 05:00 Labs: Laboratory Results - last 24 hr 06/13/22 11:27: POC Glucose 169 H 06/13/22 17:23: POC Glucose 137 H 06/14/22 00:36: POC Glucose 157 H 06/14/22 05:00: WBC 10.8, RBC 2.63 L, Hgb 7.8 L, Hct 24.9 L, MCV 94.7, MCH 29.7, MCHC 31.3 L, RDW Std Deviation 58.7 H, RDW Coeff of Magen 17.2 H, Plt Count 145 L, MPV 10.9, Immature Gran % (Auto) 0.500, Neut % (Auto) 79.2 H, Lymph % (Auto) 10.3 L, [place] % (Auto) 7.8, Eos % (Auto) 1.9, Baso % (Auto) 0.3, Absolute Neuts (auto) 8.6 H, Absolute Lymphs (auto) 1.11, Nucleated RBC % 0 06/14/22 05:00: Sodium 141, Potassium 3.7, Chloride 116 H, Carbon Dioxide 23.0, Anion Gap 2 L, BUN 52 H, Creatinine 1.39 H, Estim Creat Clear Calc 34.38, Est GFR (MDRD) Af Amer 49 L, Est GFR (MDRD) Non-Af 40 L, BUN/Creatinine Ratio 37.4 H , Glucose 160 H, Calcium 7.9 L 06/14/22 05:03: POC Glucose 152 H Micro: Microbiology 06/04/22 22:25 Blood Culture (Wb) - Arm Left Blood Culture - Final No growth in 5 days. 06/04/22 18:30 Blood Culture (Wb) - Pic Blood Culture - Final No growth in 5 days. 06/05/22 03:52 Wound - Leg, Left Gram Stain - Final 06/05/22 03:52 Wound - Leg, Left Wound Culture - Final Staphylococcus haemolyticus Vancomycin Resist. E. faecium 06/04/22 13:05 Sputum, Induced/Lukens Gram Stain - Final 06/04/22 13:05 Sputum, Induced/Lukens Respiratory Culture - Final Staphylococcus haemolyticus Pseudomonas aeruginosa 06/04/22 20:00 Urine Catheter - Catheter Urine Culture - Final Culture exhibits no growth. 06/05/22 16:40 Stool C. difficile GDH Antigen & Toxins - Final 06/05/22 16:40 Stool C. difficile DNA Amplification - Final 05/28/22 11:30 Suture Gram Stain - Final 05/28/22 11:30 Suture Wound Culture - Final Vancomycin Resist. E. faecium Staphylococcus haemolyticus 05/24/22 06:35 Wound - Arm Left Gram Stain - Final 05/24/22 06:35 Wound - Arm Left Wound Culture - Final Pseudomonas aeruginosa Staphylococcus haemolyticus Staphylococcus epidermidis 05/24/22 06:35 Wound - Arm Left Anaerobic Culture - Final No anaerobic bacteria isolated. 05/19/22 14:30 Blood Culture (Wb) - Port Blood Culture - Final No growth in 5 days. 05/19/22 13:45 Blood Culture (Wb) - Port Blood Culture - Final No growth in 5 days. 05/20/22 17:40 Sputum, Induced/Lukens Gram Stain - Final 05/20/22 17:40 Sputum, Induced/Lukens Respiratory Culture - Final Escherichia coli 05/19/22 22:20 Transtracheal Aspirate Gram Stain - Final 05/19/22 22:20 Transtracheal Aspirate Respiratory Culture - Final Escherichia coli 05/20/22 04:25 Urine Catheter - Knight Urine Culture - Final Culture exhibits no growth. 05/20/22 04:25 Urine Catheter - Knight Legionella Antigen - Final 05/20/22 04:25 Urine Catheter - Knight Streptococcus pneumoniae Antigen (M - Final 05/19/22 22:20 Mucosa - Nasopharyngeal Respiratory Panel (PCR) - Final Radiography Diagnostic Testing: Radiology Impression Chest X-Ray 06/11/22 06:45 IMPRESSION: 1. Bibasilar airspace disease and moderate pleural effusions. Findings may indicate atelectasis or pneumonia. 2. Endotracheal tube with tip 3 cm above the ousmane. Electronically Signed: Sony Pierre MD at 7:24 EDT , Rhythm Strip Rhythm Strip: A flutter Rate: 116 Ectopy: None Physical Exam Const alert Constitutional Narrative: Remains mechanically ventilated. Alert and interactive. HEENT normocephalic and head/scalp atraumatic Eyes PERRL and EOMs intact bilaterally Neck supple Neck Narrative: Stable tracheostomy site. General: trachea midline Chest inspection of chest normal Resp normal respiratory effort Auscultation: diminished lung sounds Cardio regular rate and regular rhythm GI normal to inspection, nondistended, normoactive bowel sounds Inspection: GI tube present Extremity Extremity Narrative: Left AKA Skin General Skin Exam: venous stasis and dermatitis Neuro moves all extremities and no focal motor deficits Charges/Coding Procedures Hospitalists Procedures: 58752 Critial Care 1st Hr
[2022-06-14] MEDS: Juven (unflavored) Packet 1 PACKET GT ×2 (09:39→17:11)
[2022-06-14] MEDS: Senna/Docusate Sodium 1 Tablet 2 TABLET NG ×2 (09:39→21:13)
[2022-06-14] MEDS: Aspirin 81 MG TAB.CHEW NG (09:39)
[2022-06-14] MEDS: Amiodarone 200 MG Tablet NG ×2 (09:39→21:14)
[2022-06-14] MEDS: Linezolid 600 MG Tablet GT ×2 (09:39→21:14)
[2022-06-14] MEDS: Ciprofloxacin 400 MG/200 ML BAG 200 MG IV ×2 (09:40→21:15)
[2022-06-14] MEDS: Insulin Glargine-YFGN 100 UNIT/ML Pen 15 UNIT SC (09:40)
[2022-06-14] MEDS: Furosemide 10 MG/ML Liquid 20 MG GT ×2 (09:40→17:08)
[2022-06-14] MEDS: Menthol/Lanolin/Calamine/Znox 113 GM Tube 1 APPLIC TOPICAL ×2 (09:41→21:14)
[2022-06-14] MEDS: CHLORHEXIDINE GLUC 2% CLOTH 1 EACH TOWELETTE TOPICAL (09:41)
[2022-06-14] MEDS: Chlorhexidine 15 ML PO ×2 (09:41→21:25)
--- NOTE | 2022-06-14 10:01 | CASEMGMT ---
Addendum entered by Erin Galo 06/14/22 13:51: Received tc back from Radha at [facility]. She states an appeal can be started on Sunday morning. A form will be faxed for the doctor's signature and will need to be faxed back with clinicals for that day. Addendum entered by Erin Galo 06/14/22 13:02: TC to pt son Chava to update on LTACH status, left vm. Addendum entered by Erin Galo 06/14/22 12:58: Per [employer], pt was denied peer to peer. TC to Radha at [facility], she will find out more info and call this RN CM back. Addendum entered by Erin Galo 06/14/22 11:57: Information received for peer to peer. TC to [facility], left 's call back info for when physician is available for peer to peer. It needs completed by 3pm today. Phone number is Option 5. Provided with member ID and for call if needed. Original Note: Spoke with Radha at [facility], she is requesting updated med list and clinicals. Uploaded to [facility] as well as peg op report. She states precert was started yesterday and likely pt will get denied and a peer to peer will need completed prior to approval.
[2022-06-14 11:45] LABS: Bedside Glucose 160 mg/dL (74-106)
--- NOTE | 2022-06-14 15:37 | PN_ITS ---
Subjective Subjective Patient seen and examined. She was lethargic and unable to do review of systems. She remains elevated via the trach. She also had her PEG tube inserted yesterday. her BP is running low still. Objective Data Objective Data Vital Signs: Vital Signs Temp Pulse Resp BP Pulse Ox O2 Del Method O2 Flow Rate 98.2 F 104 H 14 94/58 L 100 Room Air 10 06/14/22 12:00 06/14/22 14:00 06/14/22 15:00 06/14/22 15:00 06/14/22 15:00 06/14/22 15:00 06/04/22 12:19 FiO2 30 06/14/22 14:00 Oxygen Flow Rate (L/min) 10 Oxygen Delivery Method Room Air Weight: 226 lb 13.69 oz Body Mass Index (BMI) 37.8 Intake & Output: Intake and Output for Last 24 Hours 06/12/22 06/13/22 06/14/22 23:59 23:59 23:59 Intake Total 1479.75 / 1492.25 664.19 / 801.69 1277.83 / 1277.83 Output Total 1000 / 1300 1025 / 1200 400 / 400 Balance 479.75 / 192.25 -360.81 / -398.31 877.83 / 877.83 Lab / Micro Data Result Diagrams: 06/14/22 05:00 06/14/22 05:00 Labs: Laboratory Results - last 24 hr 06/13/22 17:23: POC Glucose 137 H 06/14/22 00:36: POC Glucose 157 H 06/14/22 05:00: WBC 10.8, RBC 2.63 L, Hgb 7.8 L, Hct 24.9 L, MCV 94.7, MCH 29.7, MCHC 31.3 L, RDW Std Deviation 58.7 H, RDW Coeff of Magen 17.2 H, Plt Count 145 L, MPV 10.9, Immature Gran % (Auto) 0.500, Neut % (Auto) 79.2 H, Lymph % (Auto) 10.3 L, [place] % (Auto) 7.8, Eos % (Auto) 1.9, Baso % (Auto) 0.3, Absolute Neuts (auto) 8.6 H, Absolute Lymphs (auto) 1.11, Nucleated RBC % 0 06/14/22 05:00: Sodium 141, Potassium 3.7, Chloride 116 H, Carbon Dioxide 23.0, Anion Gap 2 L, BUN 52 H, Creatinine 1.39 H, Estim Creat Clear Calc 34.38, Est GFR (MDRD) Af Amer 49 L, Est GFR (MDRD) Non-Af 40 L, BUN/Creatinine Ratio 37.4 H , Glucose 160 H, Calcium 7.9 L 06/14/22 05:03: POC Glucose 152 H 06/14/22 11:14: POC Glucose 160 H Micro: Microbiology 06/04/22 22:25 Blood Culture (Wb) - Arm Left Blood Culture - Final No growth in 5 days. 06/04/22 18:30 Blood Culture (Wb) - Pic Blood Culture - Final No growth in 5 days. 06/05/22 03:52 Wound - Leg, Left Gram Stain - Final 06/05/22 03:52 Wound - Leg, Left Wound Culture - Final Staphylococcus haemolyticus Vancomycin Resist. E. faecium 06/04/22 13:05 Sputum, Induced/Lukens Gram Stain - Final 06/04/22 13:05 Sputum, Induced/Lukens Respiratory Culture - Final Staphylococcus haemolyticus Pseudomonas aeruginosa 06/04/22 20:00 Urine Catheter - Catheter Urine Culture - Final Culture exhibits no growth. 06/05/22 16:40 Stool C. difficile GDH Antigen & Toxins - Final 06/05/22 16:40 Stool C. difficile DNA Amplification - Final 05/28/22 11:30 Suture Gram Stain - Final 05/28/22 11:30 Suture Wound Culture - Final Vancomycin Resist. E. faecium Staphylococcus haemolyticus 05/24/22 06:35 Wound - Arm Left Gram Stain - Final 05/24/22 06:35 Wound - Arm Left Wound Culture - Final Pseudomonas aeruginosa Staphylococcus haemolyticus Staphylococcus epidermidis 05/24/22 06:35 Wound - Arm Left Anaerobic Culture - Final No anaerobic bacteria isolated. 05/19/22 14:30 Blood Culture (Wb) - Port Blood Culture - Final No growth in 5 days. 05/19/22 13:45 Blood Culture (Wb) - Port Blood Culture - Final No growth in 5 days. 05/20/22 17:40 Sputum, Induced/Lukens Gram Stain - Final 05/20/22 17:40 Sputum, Induced/Lukens Respiratory Culture - Final Escherichia coli 05/19/22 22:20 Transtracheal Aspirate Gram Stain - Final 05/19/22 22:20 Transtracheal Aspirate Respiratory Culture - Final Escherichia coli 05/20/22 04:25 Urine Catheter - Knight Urine Culture - Final Culture exhibits no growth. 05/20/22 04:25 Urine Catheter - Knight Legionella Antigen - Final 05/20/22 04:25 Urine Catheter - Knight Streptococcus pneumoniae Antigen (M - Final 05/19/22 22:20 Mucosa - Nasopharyngeal Respiratory Panel (PCR) - Final Rhythm Strip Rhythm Strip: A flutter Rate: 116 Ectopy: None Physical Exam Const alert Constitutional Narrative: Intubated via tracheostomy Orientation / Consciousness: lethargic HEENT normocephalic, head/scalp atraumatic and moist oral mucous membranes Eyes PERRL and EOMs intact bilaterally Neck no lymphadenopathy, supple and no JVD Lymph Lymphatic: no lymphadenopathy noted and no lymphedema noted Resp Resp Narrative: Remains intubated; now on vent via tracheostomy Cardio regular rate, regular rhythm, S1 normal heart sound, S2 normal heart sound and no murmurs Cardio Narrative: tachycardia has improved. GI normal to inspection, nondistended, normoactive bowel sounds, soft to palpation, non-tender and non-distended Extremity normal capillary refill, no clubbing, cyanosis or edema and no calf tenderness Extremity Narrative: Left AKA stump with dressing bandage. Right lower extremity edematous. Skin Skin Narrative: left AKA, intact stump General Skin Exam: no breakdown Neuro CN's II-XII intact bilaterally, no focal motor deficits, no sensory deficits noted and deep tendon reflexes 2+ bilaterally Neuro Narrative: Intubated, and on vent via tracheostomy. RASS score is 0 Psych Psych Narrative: lethargic Assessment & Plan Assessment/Plan (1) Acute on chronic respiratory failure with hypoxia and hypercapnia: (2) Septic shock: (3) Atrial fibrillation with rapid ventricular response: PLAN: Plan #Acute hypoxic respiratory failure due to HFpEF and E coli pneumonia * Was intubated at the start of her stay also been admitted for E. coli pneumoni a. She completed a course of meropenem was placed on Lasix and subsequently sent to the floor. However hospital course was complicated by worsening respiratory status so she was sent back to the ICU on 06/04/2022 and intubated again. * She remains intubated. * was on IV vancomycin. Sputum cultures grew staph hemolyticus sensitive to vancomycin. ID on board. She is now on IV ciprofloxacin and linezolid * Now on IV Cipro. Will also need PEG tube placement. * Breathing treatments with bronchodilators. Titrate oxygen to maintain saturation above 90%. * has had tracheostomy done Now on ventilator via trach. #Hypernatremia: Resolved #Left lower extremity wound infection * Status post left AKA in the left AKA stump was having some discharge. Wound cultures grew staph hemolyticus and Enterococcus vacation. * Remains on IV ciprofloxacin. ID on board. * #Septic shock * Was due to ESBL E. coli. Resolved. Has been off pressors for more than a week * #A-fib: On p.o. amiodarone #Hypokalemia:resolved #MIKE on CKD: resolved. #Type 2 diabetes mellitus: On insulin sliding scale.? 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 Intact dressing over stump. Will monitor #Hypothyroidism;on synthroid.? #CAD s/p stent: On aspirin and statin #A-fib: Still remains mildly tachycardic.? Now on p.o. amiodarone. #Dysphagia: * s/p PEG tube insertion * DVT prophylaxis: On heparin Total time spent on evaluation and management of patient, reviewing chart and specialist notes, discussion with nursing and ancillary staff as well as documentation: 43 mins Charges/Coding Visit Charges Inpatient E&M: 73892 Subs Hosp L2
[2022-06-14 17:30] LABS: Bedside Glucose 126 mg/dL (74-106)
[2022-06-14] MEDS: Vital AF 1.2 Cal Liquid 1,000 ML 40 ML GT (21:28)
[2022-06-15] VITALS (33 sets, daily range): BP systolic 85–120; BP diastolic 58–85; PULSE 105–153; RESP 16–32; TEMP 36.7–37.4; O2SAT 92–100; BMI 38.3
[2022-06-15] MEDS: Metoclopramide 10 MG/2 ML Vial 5 MG IV ×5 (00:43→23:25)
[2022-06-15] MEDS: Ipratropium 0.5 MG/2.5 ML SOLUTION INHALATION ×4 (01:59→19:00)
[2022-06-15 02:45] LABS: Bedside Glucose 136 mg/dL (74-106)
[2022-06-15 04:19] LABS: Absolute Neutrophil Count 10.2 X10^3/uL (2.0-7.7); Basophil# 0.03 X10^3/uL; Basophil% 0.2 % (0-1); Eosinophil# 0.23 X10^3/uL; Eosinophils% 1.9 % (0-5); Hematocrit 23.6 % (37-47); Hemoglobin 7.4 g/dL (12.0-15.0); Lymphocyte % 8.2 % (19-41); Mean Corp Hgb Conc 31.4 g/dL (32-36); Mean Corpuscular Volume 95.5 fL (81-99); Monocyte# 0.57 X10^3/uL; Monocyte% 4.7 % (0-10); NRBC Flagged by Analyzer 0 % (0-5); Neutrophil # 10.24 X10^3/uL (2.7-7.7); Neutrophil % 84.3 % (47-70); Platelet Count 133 K/mm3 (150-450); RBC Distribution Width CV 17.1 % (11.6-14.6); RBC Distribution Width SD 58.6 fl (35.1-43.9); Red Blood Count 2.47 M/mm3 (4.2-5.4); White Blood Count 12.2 K/mm3 (4.4-11.0)
[2022-06-15 04:33] LABS: Anion Gap 4 (5-15); BUN 50 mg/dL (7-18); Calcium,Total 7.9 mg/dL (8.5-10.1); Chloride 113 mmol/L (98-107); Creatinine, Serum 1.35 mg/dL (0.55-1.02); EST Glomerular Filtration Rate 42 mL/min (>60); Est Glom Filt Rate - Afr Amer 50 mL/min (>60); Glucose 170 mg/dL (74-106); Potassium 3.4 mmol/L (3.5-5.1); Sodium Level 140 mmol/L (136-145)
[2022-06-15] MEDS: 0.9% Saline Lock 10 ML Syringe IV ×2 (05:20→23:26)
[2022-06-15] MEDS: Levothyroxine 125 MCG Tablet GT (05:20)
[2022-06-15] MEDS: Heparin Injection (Vial) 5,000 UNIT/ML VIAL 5000 UNIT SC ×3 (05:20→21:32)
[2022-06-15] MEDS: Nystatin Powder 15gm Bottle 1 APPLIC TOPICAL ×3 (05:21→21:33)
[2022-06-15] MEDS: Insulin Lispro 100 UNIT/ML INSULN.PEN SC ×4 (05:21→23:25)
--- NOTE | 2022-06-15 06:50 | PN.CC_ITS ---
Assessment & Plan Assessment/Plan (1) Septic shock: PLAN: Plan RECOMMENDATIONS: 1. Place on spontaneous mode of mechanical ventilation this morning. If the patient does well, will transition to trach collar. 2. Antimicrobials per ID recommendations. 3. Diuresis as tolerated by hemodynamics and renal function. 4. Continue tube feeds as tolerated. 5. Continue appropriate ICU prophylaxis. 6. Disposition planning per case management. IMPRESSIONS: 1. Septic shock Resolved. Multiple sources of infection have been identified during this hospitalization, including ESBL E. coli pneumonia and wound VRE. The patient remains hemodynamically stable off of vasopressor support. Antibiotics are being continued per ID recommendations. 2. Encephalopathy Improved. Most likely related to acute CO2 retention. It is unclear as to whether the patient had access to a BiPAP at her nursing facility and whether or not it was being utilized. The patient continues to fail to use BiPAP following extubation in the hospital. Failure to use BiPAP will likely lead to recurrent metabolic encephalopathy secondary to elevated CO2 levels. Therefore, the patient ultimately underwent successful tracheostomy and PEG tube placement. 3. Acute on chronic combined respiratory failure The patient did grow ESBL E. coli in her sputum indicating pneumonia on presentation as an etiology of her initial respiratory failure. The patient has had multiple hospitalizations related to respiratory failure in the setting of noncompliance with PAP therapy, which ultimately leads to CO2 narcosis and the need for intubation. In light of these repeated episodes, the patient underwent tracheostomy and PEG tube placement. 4. Acute on chronic kidney disease Stable. We will continue tube feeds with free water flushes. Most likely prerenal in etiology in the setting of #1. Creatinine has worsened recently, likely secondary to decreased perfusion with acidosis. We will plan to continue to monitor urine output for now. No current indication for renal replacement therapy. 5. 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 Continue to monitor H&H daily. Transfuse if hemoglobin drops below 7 g/dL. Continue PPI therapy as ordered. Sutures on AKA appear to be holding at this time despite anasarca. Continue Reglan as tolerated along with tube feeds. TIME: 32 minutes of critical care time, independent of procedures, was spent addressing the patient septic shock, encephalopathy, acute on chronic combined respiratory failure, acute on chronic kidney disease, review of all data and collaboration with the care team. Subjective Subjective The patient was seen and examined at the bedside this morning. Events from the last 24 hours have been reviewed. The patient is currently afebrile, hemodynamically stable and maintaining appropriate oxygen saturations on assist control mode of mechanical ventilation with an FiO2 requirement of 30% and PEEP of 5. No overnight issues were identified by the nursing staff. The patient has been tolerant of tube feeds. She does have increasing secretions. Request for LTACH yesterday was declined, as the patient has not been on the ventilator for 2 weeks. Objective Data Objective Data The patient's most recent lab work, culture data and imaging studies have all been personally reviewed.? Surface echocardiogram from May 08 demonstrated normal LV size and function with an ejection fraction of 55%.? Mild to moderate global RV systolic dysfunction was noted along with a pulmonary artery systolic pressure of 50 mmHg.? Sputum culture dated May 21 was positive for ESBL E. coli. Sputum from June 04 was positive for Pseudomonas aeruginosa. Leg culture was positive for VRE. Vital Signs: Vital Signs Temp Pulse Resp BP Pulse Ox O2 Del Method O2 Flow Rate 99 F 129 H 22 H 112/85 H 100 Mechanical Ventilator 10 06/15/22 04:00 06/15/22 05:00 06/15/22 05:00 06/15/22 05:00 06/15/22 05:00 06/15/22 05:00 06/04/22 12:19 FiO2 30 06/15/22 05:00 Oxygen Flow Rate (L/min) 10 Oxygen Delivery Method Mechanical Ventilator Weight: 230 lb 6.129 oz Body Mass Index (BMI) 38.3 Intake & Output: Intake and Output for Last 24 Hours 06/13/22 06/14/22 06/15/22 23:59 23:59 23:59 Intake Total 664.19 / 801.69 2346.98 / 2549.48 412.5 / 412.5 Output Total 1025 / 1200 1050 / 1050 225 / 225 Balance -360.81 / -398.31 1296.98 / 1499.48 187.5 / 187.5 Lab / Micro Data Attestation: I reviewed the patient's lab results. Result Diagrams: 06/15/22 04:10 06/15/22 04:10 Labs: Laboratory Results - last 24 hr 06/14/22 11:14: POC Glucose 160 H 06/14/22 17:07: POC Glucose 126 H 06/15/22 00:41: POC Glucose 136 H 06/15/22 04:10: WBC 12.2 H, RBC 2.47 L, Hgb 7.4 L, Hct 23.6 L, MCV 95.5, MCH 30.0, MCHC 31.4 L, RDW Std Deviation 58.6 H, RDW Coeff of Magen 17.1 H, Plt Count 133 L, MPV 11.0, Immature Gran % (Auto) 0.700, Neut % (Auto) 84.3 H, Lymph % (Auto) 8.2 L, [place] % (Auto) 4.7, Eos % (Auto) 1.9, Baso % (Auto) 0.2, Absolute Neuts (auto) 10.2 H, Absolute Lymphs (auto) 1.00, Nucleated RBC % 0 06/15/22 04:10: Sodium 140, Potassium 3.4 L, Chloride 113 H, Carbon Dioxide 23.0, Anion Gap 4 L, BUN 50 H, Creatinine 1.35 H, Estim Creat Clear Calc 35.40, Est GFR (MDRD) Af Amer 50 L, Est GFR (MDRD) Non-Af 42 L, BUN/Creatinine Ratio 37.0 H, Glucose 170 H, Calcium 7.9 L Micro: Microbiology 06/04/22 22:25 Blood Culture (Wb) - Arm Left Blood Culture - Final No growth in 5 days. 06/04/22 18:30 Blood Culture (Wb) - Pic Blood Culture - Final No growth in 5 days. 06/05/22 03:52 Wound - Leg, Left Gram Stain - Final 06/05/22 03:52 Wound - Leg, Left Wound Culture - Final Staphylococcus haemolyticus Vancomycin Resist. E. faecium 06/04/22 13:05 Sputum, Induced/Lukens Gram Stain - Final 06/04/22 13:05 Sputum, Induced/Lukens Respiratory Culture - Final Staphylococcus haemolyticus Pseudomonas aeruginosa 06/04/22 20:00 Urine Catheter - Catheter Urine Culture - Final Culture exhibits no growth. 06/05/22 16:40 Stool C. difficile GDH Antigen & Toxins - Final 06/05/22 16:40 Stool C. difficile DNA Amplification - Final 05/28/22 11:30 Suture Gram Stain - Final 05/28/22 11:30 Suture Wound Culture - Final Vancomycin Resist. E. faecium Staphylococcus haemolyticus 05/24/22 06:35 Wound - Arm Left Gram Stain - Final 05/24/22 06:35 Wound - Arm Left Wound Culture - Final Pseudomonas aeruginosa Staphylococcus haemolyticus Staphylococcus epidermidis 05/24/22 06:35 Wound - Arm Left Anaerobic Culture - Final No anaerobic bacteria isolated. 05/19/22 14:30 Blood Culture (Wb) - Port Blood Culture - Final No growth in 5 days. 05/19/22 13:45 Blood Culture (Wb) - Port Blood Culture - Final No growth in 5 days. 05/20/22 17:40 Sputum, Induced/Lukens Gram Stain - Final 05/20/22 17:40 Sputum, Induced/Lukens Respiratory Culture - Final Escherichia coli 05/19/22 22:20 Transtracheal Aspirate Gram Stain - Final 05/19/22 22:20 Transtracheal Aspirate Respiratory Culture - Final Escherichia coli 05/20/22 04:25 Urine Catheter - Knight Urine Culture - Final Culture exhibits no growth. 05/20/22 04:25 Urine Catheter - Knight Legionella Antigen - Final 05/20/22 04:25 Urine Catheter - Knight Streptococcus pneumoniae Antigen (M - Final 05/19/22 22:20 Mucosa - Nasopharyngeal Respiratory Panel (PCR) - Final Radiography Diagnostic Testing: Radiology Impression Chest X-Ray 06/11/22 06:45 IMPRESSION: 1. Bibasilar airspace disease and moderate pleural effusions. Findings may indicate atelectasis or pneumonia. 2. Endotracheal tube with tip 3 cm above the ousmane. Electronically Signed: Sony Pierre MD at 7:24 EDT , Rhythm Strip Rhythm Strip: A flutter Rate: 116 Ectopy: None Physical Exam Const alert and no apparent distress Constitutional Narrative: Remains mechanically ventilated. Alert and interactive. General Appearance: cooperative HEENT normocephalic and head/scalp atraumatic Eyes PERRL and EOMs intact bilaterally Neck supple Neck Narrative: Stable tracheostomy site. General: trachea midline Chest inspection of chest normal Resp normal respiratory effort Auscultation: diminished lung sounds Cardio regular rate and regular rhythm GI normal to inspection, nondistended, normoactive bowel sounds Inspection: GI tube present Extremity Extremity Narrative: Left AKA Skin General Skin Exam: venous stasis and dermatitis Neuro moves all extremities and no focal motor deficits Charges/Coding Procedures Hospitalists Procedures: 42283 Critial Care 1st Hr
[2022-06-15] MEDS: Aspirin 81 MG TAB.CHEW NG (07:53)
[2022-06-15] MEDS: Linezolid 600 MG Tablet GT ×2 (07:53→21:33)
[2022-06-15] MEDS: Menthol/Lanolin/Calamine/Znox 113 GM Tube 1 APPLIC TOPICAL ×2 (07:54→21:33)
[2022-06-15] MEDS: Chlorhexidine 15 ML PO ×2 (07:54→21:33)
[2022-06-15] MEDS: Juven (unflavored) Packet 1 PACKET GT ×2 (07:54→17:35)
[2022-06-15] MEDS: Amiodarone 200 MG Tablet NG ×2 (07:54→21:32)
[2022-06-15] MEDS: Furosemide 10 MG/ML Liquid 20 MG GT ×2 (07:54→17:36)
--- NOTE | 2022-06-15 09:33 | CASEMGMT ---
Addendum entered by Ebonie Grewal 06/15/22 10:40: Janine at [facility] requesting updated notes. GREG sent updated clinicals to Janine via [employer]. Original Note: Social Work During AM rounds it was mentioned pt may need new level of care due to being denied Ltach. At this time GREG reached out to [facility] to inquire if [facility] would accept pt with trach collar. Left message for Janine at [facility]. Will await call back. PLAN: TBD - Appeal Ltach denial or return to [facility]
--- NOTE | 2022-06-15 09:56 | PCM.PN.ID ---
Physical Exam Narrative Feeling ok, no fever, no dyspnea, bringing up a lot of secretions from trach Const alert and no apparent distress General Appearance: cooperative Resp normal air movement and clear to auscultation bilaterally Cardio regular rate and regular rhythm GI soft to palpation, non-tender and non-distended Skin Skin Narrative: wound vac over L stump ID ID: Route of nutrition/ use of supplements: [] Nutritional Intake: [] IV Site: [] Knight Catheter: [] Assessment & Plan Assessment/Plan (1) Septic shock: PLAN: On vent. On vanc for MR-CoNS L stump infection. Sputum cx with MR-CoNS and CRE pseudomonas. 06/07 started iv cipro. Temp better. L AKA incision less red, woun vac in place. Now wound cx also with VRE; 06/09 changed vanc to linezolid. Plan on stopping 06/17 if she continues to improve. Will follow
[2022-06-15] MEDS: Ciprofloxacin 400 MG/200 ML BAG 200 MG IV ×2 (10:06→21:32)
--- NOTE | 2022-06-15 10:29 | PN_ITS ---
Subjective Subjective Patient seen and examined. She had no active complaints. Review of systems otherwise negative. She is tachycardic today. Objective Data Objective Data Vital Signs: Vital Signs Temp Pulse Resp BP Pulse Ox O2 Del Method O2 Flow Rate 98.3 F 128 H 23 H 96/68 96 Mechanical Ventilator 10 06/15/22 10:00 06/15/22 10:00 06/15/22 10:00 06/15/22 10:00 06/15/22 10:00 06/15/22 10:00 06/04/22 12:19 FiO2 30 06/15/22 10:00 Oxygen Flow Rate (L/min) 10 Oxygen Delivery Method Mechanical Ventilator Weight: 230 lb 6.129 oz Body Mass Index (BMI) 38.3 Intake & Output: Intake and Output for Last 24 Hours 06/13/22 06/14/22 06/15/22 23:59 23:59 23:59 Intake Total 664.19 / 801.69 2346.98 / 2549.48 722.5 / 722.5 Output Total 1025 / 1200 1050 / 1050 225 / 225 Balance -360.81 / -398.31 1296.98 / 1499.48 497.5 / 497.5 Lab / Micro Data Result Diagrams: 06/15/22 04:10 06/15/22 04:10 Labs: Laboratory Results - last 24 hr 06/11/22 06:35: Crossmatch See Detail 06/14/22 11:14: POC Glucose 160 H 06/14/22 17:07: POC Glucose 126 H 06/15/22 00:41: POC Glucose 136 H 06/15/22 04:10: WBC 12.2 H, RBC 2.47 L, Hgb 7.4 L, Hct 23.6 L, MCV 95.5, MCH 30.0, MCHC 31.4 L, RDW Std Deviation 58.6 H, RDW Coeff of Magen 17.1 H, Plt Count 133 L, MPV 11.0, Immature Gran % (Auto) 0.700, Neut % (Auto) 84.3 H, Lymph % (Auto) 8.2 L, [place] % (Auto) 4.7, Eos % (Auto) 1.9, Baso % (Auto) 0.2, Absolute Neuts (auto) 10.2 H, Absolute Lymphs (auto) 1.00, Nucleated RBC % 0 06/15/22 04:10: Sodium 140, Potassium 3.4 L, Chloride 113 H, Carbon Dioxide 23.0, Anion Gap 4 L, BUN 50 H, Creatinine 1.35 H, Estim Creat Clear Calc 35.40, Est GFR (MDRD) Af Amer 50 L, Est GFR (MDRD) Non-Af 42 L, BUN/Creatinine Ratio 37.0 H, Glucose 170 H, Calcium 7.9 L Micro: Microbiology 06/04/22 22:25 Blood Culture (Wb) - Arm Left Blood Culture - Final No growth in 5 days. 06/04/22 18:30 Blood Culture (Wb) - Pic Blood Culture - Final No growth in 5 days. 06/05/22 03:52 Wound - Leg, Left Gram Stain - Final 06/05/22 03:52 Wound - Leg, Left Wound Culture - Final Staphylococcus haemolyticus Vancomycin Resist. E. faecium 06/04/22 13:05 Sputum, Induced/Lukens Gram Stain - Final 06/04/22 13:05 Sputum, Induced/Lukens Respiratory Culture - Final Staphylococcus haemolyticus Pseudomonas aeruginosa 06/04/22 20:00 Urine Catheter - Catheter Urine Culture - Final Culture exhibits no growth. 06/05/22 16:40 Stool C. difficile GDH Antigen & Toxins - Final 06/05/22 16:40 Stool C. difficile DNA Amplification - Final 05/28/22 11:30 Suture Gram Stain - Final 05/28/22 11:30 Suture Wound Culture - Final Vancomycin Resist. E. faecium Staphylococcus haemolyticus 05/24/22 06:35 Wound - Arm Left Gram Stain - Final 05/24/22 06:35 Wound - Arm Left Wound Culture - Final Pseudomonas aeruginosa Staphylococcus haemolyticus Staphylococcus epidermidis 05/24/22 06:35 Wound - Arm Left Anaerobic Culture - Final No anaerobic bacteria isolated. 05/19/22 14:30 Blood Culture (Wb) - Port Blood Culture - Final No growth in 5 days. 05/19/22 13:45 Blood Culture (Wb) - Port Blood Culture - Final No growth in 5 days. 05/20/22 17:40 Sputum, Induced/Lukens Gram Stain - Final 05/20/22 17:40 Sputum, Induced/Lukens Respiratory Culture - Final Escherichia coli 05/19/22 22:20 Transtracheal Aspirate Gram Stain - Final 05/19/22 22:20 Transtracheal Aspirate Respiratory Culture - Final Escherichia coli 05/20/22 04:25 Urine Catheter - Knight Urine Culture - Final Culture exhibits no growth. 05/20/22 04:25 Urine Catheter - Knight Legionella Antigen - Final 05/20/22 04:25 Urine Catheter - Knight Streptococcus pneumoniae Antigen (M - Final 05/19/22 22:20 Mucosa - Nasopharyngeal Respiratory Panel (PCR) - Final Rhythm Strip Rhythm Strip: A flutter Rate: 116 Ectopy: None Physical Exam Const alert Constitutional Narrative: Intubated via tracheostomy Orientation / Consciousness: lethargic HEENT normocephalic, head/scalp atraumatic and moist oral mucous membranes Eyes PERRL and EOMs intact bilaterally Neck no lymphadenopathy, supple and no JVD Lymph Lymphatic: no lymphadenopathy noted and no lymphedema noted Resp Resp Narrative: Remains intubated; now on vent via tracheostomy, having a lot of secretions Cardio regular rhythm, S1 normal heart sound, S2 normal heart sound and no murmurs Cardio Narrative: tachycardic GI normal to inspection, nondistended, normoactive bowel sounds, soft to palpation, non-tender and non-distended Extremity normal capillary refill, no clubbing, cyanosis or edema and no calf tenderness Extremity Narrative: Left AKA stump with dressing bandage. Right lower extremity edematous. Skin Skin Narrative: left AKA, intact stump Neuro Neuro Narrative: on ventilator via tracheostomy. alert, tries to verbalise words. Moves all extremities Psych Psych Narrative: lethargic Assessment & Plan Assessment/Plan (1) Acute on chronic respiratory failure with hypoxia and hypercapnia: (2) Septic shock: (3) Atrial fibrillation with rapid ventricular response: PLAN: Plan #Acute hypoxic respiratory failure due to HFpEF and E coli pneumonia * Was intubated at the start of her stay also been admitted for E. coli pneumonia. She completed a course of meropenem was placed on Lasix and subsequently sent to the floor. However hospital course was complicated by worsening respiratory status so she was sent back to the ICU on 06/04/2022 and intubated again. * She remains intubated. * was on IV vancomycin. Sputum cultures grew staph hemolyticus sensitive to vancomycin. ID on board. She is now on IV ciprofloxacin and linezolid * Now on IV Cipro. Will also need PEG tube placement. * Breathing treatments with bronchodilators. Titrate oxygen to maintain saturation above 90%. * has had tracheostomy done * Now on ventilator via trach. #Hypernatremia: Resolved #Left lower extremity wound infection * Status post left AKA in the left AKA stump was having some discharge. Wound cultures grew staph hemolyticus and Enterococcus vacation. * Remains on IV ciprofloxacin. ID on board. * * #A-fib: On p.o. amiodarone #Hypokalemia:resolved #MIKE on CKD: resolved. #Type 2 diabetes mellitus: On insulin sliding scale.? 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 Intact dressing over stump. Will monitor #Hypothyroidism;on synthroid.? #CAD s/p stent: On aspirin and statin #A-fib: Still remains mildly tachycardic.? on p.o. amiodarone. Dose may need to be adjusted to help control heart rate #Dysphagia: * s/p PEG tube insertion * DVT prophylaxis: On heparin Total time spent on evaluation and management of patient, reviewing chart and specialist notes, discussion with nursing and ancillary staff as well as documentation: 45 mins Disposition: Awaiting placement in LTAC Charges/Coding Visit Charges Inpatient E&M: 07221 Subs Hosp L2
[2022-06-15] MEDS: Insulin Glargine-YFGN 100 UNIT/ML Pen 15 UNIT SC (11:31)
[2022-06-15] MEDS: Potassium Chloride Oral Soln 20 MEQ/15 ML UDC 40 MEQ GT (11:35)
[2022-06-15 12:05] LABS: Bedside Glucose 197 mg/dL (74-106)
[2022-06-15] MEDS: CHLORHEXIDINE GLUC 2% CLOTH 1 EACH TOWELETTE TOPICAL (16:29)
[2022-06-15 20:51] LABS: Bedside Glucose 211 mg/dL (74-106)
[2022-06-15] MEDS: Vital AF 1.2 Cal Liquid 1,000 ML 55 ML GT (21:34)
[2022-06-16] VITALS (31 sets, daily range): BP systolic 94–122; BP diastolic 55–89; PULSE 110–178; RESP 10–38; TEMP 36.9–37.7; O2SAT 86–100; BMI 38.2
[2022-06-16] MEDS: Ipratropium 0.5 MG/2.5 ML SOLUTION INHALATION ×4 (01:35→19:30)
--- NOTE | 2022-06-16 02:34 | NURSING ---
Pt tapping on bedrail and using call light, once staff in room pt demands the bedrail to be put down so that she can get out of here and that she's been here long enough. This RN acknowledged that pt has been here for quite a long time, but that she's unable to leave at this moment; we are trying to find a place for her to go. Pt states I can go home. Pt educated that her current care requirements are too much and she needs placed where healthcare staff can help her. Pt states that's bullshit very clearly. Pointed out to pt that she can barely hold her head up off of the bed and she can't hold herself over for turns in the bed yet d/t debility. Pt rolled her eyes and then turned her head away from me.
[2022-06-16 04:57] LABS: Absolute Lymphocyte Count 1.58 X10^3/uL (0.83-4.51); Absolute Neutrophil Count 24.6 X10^3/uL (2.0-7.7); Basophil# 0.08 X10^3/uL; Basophil% 0.3 % (0-1); Eosinophil# 0.17 X10^3/uL; Eosinophils% 0.6 % (0-5); Hematocrit 29.8 % (37-47); Lymphocyte # 1.58 X10^3/ul (0.83-4.51); Lymphocyte % 5.7 % (19-41); Mean Corp Hgb Conc 30.2 g/dL (32-36); Mean Corpuscular Hgb 29.5 pg (27.0-32.0); Mean Corpuscular Volume 97.7 fL (81-99); Mean Platelet Vol. 10.9 fl (6.2-12.0); Monocyte# 0.89 X10^3/uL; Monocyte% 3.2 % (0-10); NRBC Flagged by Analyzer 0 % (0-5); Neutrophil # 24.58 X10^3/uL (2.7-7.7); POSITIVE DIFFERENTIAL YES; Platelet Count 220 K/mm3 (150-450); RBC Distribution Width CV 17.6 % (11.6-14.6); RBC Distribution Width SD 61.5 fl (35.1-43.9); Red Blood Count 3.05 M/mm3 (4.2-5.4); White Blood Count 27.6 K/mm3 (4.4-11.0)
[2022-06-16 05:00] LABS: Differential Indicated SCAN CRITERIA MET
[2022-06-16 05:10] LABS: Anion Gap 4 (5-15); BUN 44 mg/dL (7-18); BUN/Creat Ratio 29.9 RATIO (10-20); Calcium,Total 8.6 mg/dL (8.5-10.1); Chloride 112 mmol/L (98-107); Creatinine, Serum 1.47 mg/dL (0.55-1.02); EST Glomerular Filtration Rate 38 mL/min (>60); Est Glom Filt Rate - Afr Amer 46 mL/min (>60); Estimated Creatinine Clearance 32.51 ml/min; Glucose 310 mg/dL (74-106); Potassium 3.7 mmol/L (3.5-5.1); Sodium Level 137 mmol/L (136-145)
--- NOTE | 2022-06-16 05:22 | NURSING ---
Pt found to have had a Lg emesis of tubefeed;pt bathed, linens changed and amador well. TF placed on HOLD.
[2022-06-16 05:32] LABS: Anisocytosis 1+
[2022-06-16] MEDS: Nystatin Powder 15gm Bottle 1 APPLIC TOPICAL ×3 (05:43→22:00)
[2022-06-16] MEDS: 0.9% Saline Lock 10 ML Syringe IV (05:43)
[2022-06-16] MEDS: Metoclopramide 10 MG/2 ML Vial 5 MG IV ×3 (05:43→18:11)
[2022-06-16] MEDS: Levothyroxine 125 MCG Tablet GT (05:44)
[2022-06-16] MEDS: Heparin Injection (Vial) 5,000 UNIT/ML VIAL 5000 UNIT SC ×3 (05:44→21:59)
[2022-06-16] MEDS: Insulin Lispro 100 UNIT/ML INSULN.PEN SC ×3 (05:44→18:10)
[2022-06-16 08:01] LABS: Bedside Glucose 202 mg/dL (74-106)
--- NOTE | 2022-06-16 10:00 | PN.CC_ITS ---
Assessment & Plan Assessment/Plan (1) Septic shock: PLAN: Plan RECOMMENDATIONS: 1. Continue to wean FiO2 and PEEP to maintain saturations at or above 90%. 2. Antimicrobials per ID recommendations. 3. Continue diuresis as tolerated by hemodynamics and renal function. 4. Resume tube feeds today at low rate. 5. Continue appropriate ICU prophylaxis. 6. Disposition planning per case management. IMPRESSIONS: 1. Septic shock Resolved. Multiple sources of infection have been identified during this hospitalization, including ESBL E. coli pneumonia and wound VRE. The patient remains hemodynamically stable off of vasopressor support. Antibiotics are being continued per ID recommendations. 2. Encephalopathy Improved. Most likely related to acute CO2 retention. It is unclear as to whether the patient had access to a BiPAP at her nursing facility and whether or not it was being utilized. The patient continues to fail to use BiPAP following extubation in the hospital. Failure to use BiPAP will likely lead to recurrent metabolic encephalopathy secondary to elevated CO2 levels. Therefore, the patient ultimately underwent successful tracheostomy and PEG tube placement. 3. Acute on chronic combined respiratory failure The patient did grow ESBL E. coli in her sputum indicating pneumonia on presentation as an etiology of her initial respiratory failure. The patient has had multiple hospitalizations related to respiratory failure in the setting of noncompliance with PAP therapy, which ultimately leads to CO2 narcosis and the need for intubation. In light of these repeated episodes, the patient underwent tracheostomy and PEG tube placement. 4. Acute on chronic kidney disease Stable. We will continue tube feeds with free water flushes. Most likely prerenal in etiology in the setting of #1. Creatinine has worsened recently, likely secondary to decreased perfusion with acidosis. We will plan to continue to monitor urine output for now. No current indication for renal replacement therapy. 5. 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 Continue to monitor H&H daily. Transfuse if hemoglobin drops below 7 g/dL. Continue PPI therapy as ordered. Sutures on AKA appear to be holding at this time despite anasarca. Continue Reglan as tolerated along with tube feeds. TIME: 31 minutes of critical care time, independent of procedures, was spent addressing the patient septic shock, encephalopathy, acute on chronic combined respiratory failure, acute on chronic kidney disease, review of all data and collaboration with the care team. Subjective Subjective The patient was seen and examined at the bedside this morning. Events from the last 24 hours have been reviewed. The patient is currently afebrile, hemodynamically stable and maintaining appropriate oxygen saturations on assist control mode of mechanical ventilation with an FiO2 requirement of 30% and PEEP of 5. The patient's tube feeds were placed on hold overnight after she had a large volume emesis. The patient remains on Reglan. She was maintained on spontaneous mode of mechanical ventilation throughout the day yesterday. However, she became tachycardic and tachypneic during her breathing trial this morning. Objective Data Objective Data The patient's most recent lab work, culture data and imaging studies have all been personally reviewed.? Surface echocardiogram from May 08 demonstrated normal LV size and function with an ejection fraction of 55%.? Mild to moderate global RV systolic dysfunction was noted along with a pulmonary artery systolic pressure of 50 mmHg.? Sputum culture dated May 21 was positive for ESBL E. coli. Sputum from June 04 was positive for Pseudomonas aeruginosa. Leg culture was positive for VRE. Vital Signs: Vital Signs Temp Pulse Resp BP Pulse Ox O2 Del Method O2 Flow Rate 98.7 F 110 H 12 100/62 100 Mechanical Ventilator 10 06/16/22 08:00 06/16/22 09:19 06/16/22 09:19 06/16/22 08:00 06/16/22 09:19 06/16/22 08:00 06/04/22 12:19 FiO2 30 06/16/22 09:19 Oxygen Flow Rate (L/min) 10 Oxygen Delivery Method Mechanical Ventilator Weight: 229 lb 15.074 oz Body Mass Index (BMI) 38.2 Intake & Output: Intake and Output for Last 24 Hours 06/14/22 06/15/22 06/16/22 23:59 23:59 23:59 Intake Total 2346.98 / 2549.48 2622.50 / 2622.50 559 / 559 Output Total 1050 / 1050 750 / 750 150 / 150 Balance 1296.98 / 1499.48 1872.50 / 1872.50 409 / 409 Lab / Micro Data Attestation: I reviewed the patient's lab results. Result Diagrams: 06/16/22 04:50 06/16/22 04:50 Labs: Laboratory Results - last 24 hr 06/15/22 11:31: POC Glucose 197 H 06/15/22 17:34: POC Glucose 211 H 06/15/22 23:24: POC Glucose 202 H 06/16/22 04:50: WBC 27.6 H, RBC 3.05 L, Hgb 9.0 L, Hct 29.8 L, MCV 97.7, MCH 29.5, MCHC 30.2 L, RDW Std Deviation 61.5 H, RDW Coeff of Magen 17.6 H, Plt Count 220, MPV 10.9, Immature Gran % (Auto) 1.200 H, Neut % (Auto) 89.0 H, Lymph % (Auto) 5.7 L, Garvin % (Auto) 3.2, Eos % (Auto) 0.6, Baso % (Auto) 0.3, Absolute Neuts (auto) 24.6 H, Absolute Lymphs (auto) 1.58, Nucleated RBC % 0, Anisocytosis 1+ 06/16/22 04:50: Sodium 137, Potassium 3.7, Chloride 112 H, Carbon Dioxide 21.0, Anion Gap 4 L, BUN 44 H, Creatinine 1.47 H, Estim Creat Clear Calc 32.51, Est GFR (MDRD) Af Amer 46 L, Est GFR (MDRD) Non-Af 38 L, BUN/Creatinine Ratio 29.9 H , Glucose 310 H, Calcium 8.6 Micro: Microbiology 06/04/22 22:25 Blood Culture (Wb) - Arm Left Blood Culture - Final No growth in 5 days. 06/04/22 18:30 Blood Culture (Wb) - Pic Blood Culture - Final No growth in 5 days. 06/05/22 03:52 Wound - Leg, Left Gram Stain - Final 06/05/22 03:52 Wound - Leg, Left Wound Culture - Final Staphylococcus haemolyticus Vancomycin Resist. E. faecium 06/04/22 13:05 Sputum, Induced/Lukens Gram Stain - Final 06/04/22 13:05 Sputum, Induced/Lukens Respiratory Culture - Final Staphylococcus haemolyticus Pseudomonas aeruginosa 06/04/22 20:00 Urine Catheter - Catheter Urine Culture - Final Culture exhibits no growth. 06/05/22 16:40 Stool C. difficile GDH Antigen & Toxins - Final 06/05/22 16:40 Stool C. difficile DNA Amplification - Final 05/28/22 11:30 Suture Gram Stain - Final 05/28/22 11:30 Suture Wound Culture - Final Vancomycin Resist. E. faecium Staphylococcus haemolyticus 05/24/22 06:35 Wound - Arm Left Gram Stain - Final 05/24/22 06:35 Wound - Arm Left Wound Culture - Final Pseudomonas aeruginosa Staphylococcus haemolyticus Staphylococcus epidermidis 05/24/22 06:35 Wound - Arm Left Anaerobic Culture - Final No anaerobic bacteria isolated. 05/19/22 14:30 Blood Culture (Wb) - Port Blood Culture - Final No growth in 5 days. 05/19/22 13:45 Blood Culture (Wb) - Port Blood Culture - Final No growth in 5 days. 05/20/22 17:40 Sputum, Induced/Lukens Gram Stain - Final 05/20/22 17:40 Sputum, Induced/Lukens Respiratory Culture - Final Escherichia coli 05/19/22 22:20 Transtracheal Aspirate Gram Stain - Final 05/19/22 22:20 Transtracheal Aspirate Respiratory Culture - Final Escherichia coli 05/20/22 04:25 Urine Catheter - Knight Urine Culture - Final Culture exhibits no growth. 05/20/22 04:25 Urine Catheter - Knight Legionella Antigen - Final 05/20/22 04:25 Urine Catheter - Knight Streptococcus pneumoniae Antigen (M - Final 05/19/22 22:20 Mucosa - Nasopharyngeal Respiratory Panel (PCR) - Final Radiography Diagnostic Testing: Radiology Impression Chest X-Ray 06/11/22 06:45 IMPRESSION: 1. Bibasilar airspace disease and moderate pleural effusions. Findings may indicate atelectasis or pneumonia. 2. Endotracheal tube with tip 3 cm above the ousmane. Electronically Signed: Sony Pierre MD at 7:24 EDT , Rhythm Strip Rhythm Strip: A flutter Rate: 116 Ectopy: None Physical Exam Const alert and no apparent distress Constitutional Narrative: Remains mechanically ventilated. General Appearance: cooperative HEENT normocephalic and head/scalp atraumatic Eyes PERRL and EOMs intact bilaterally Neck supple Neck Narrative: Stable tracheostomy site. General: trachea midline Chest inspection of chest normal Resp normal respiratory effort Auscultation: diminished lung sounds Cardio S1 normal heart sound and S2 normal heart sound Rhythm: abnormal rhythm GI normal to inspection, nondistended, normoactive bowel sounds Inspection: GI tube present Extremity Extremity Narrative: Left AKA Skin General Skin Exam: venous stasis and dermatitis Neuro moves all extremities and no focal motor deficits Charges/Coding Procedures Hospitalists Procedures: 74501 Critial Care 1st Hr
[2022-06-16] MEDS: Juven (unflavored) Packet 1 PACKET GT ×2 (10:12→18:11)
[2022-06-16] MEDS: Menthol/Lanolin/Calamine/Znox 113 GM Tube 1 APPLIC TOPICAL ×2 (10:12→21:59)
[2022-06-16] MEDS: Potassium Chloride Oral Soln 20 MEQ/15 ML UDC 40 MEQ GT (10:12)
[2022-06-16] MEDS: Lansoprazole 15 MG Capsule.DR 30 MG NG (10:12)
[2022-06-16] MEDS: Linezolid 600 MG Tablet GT ×2 (10:12→21:59)
[2022-06-16] MEDS: Amiodarone 200 MG Tablet NG ×2 (10:12→21:59)
[2022-06-16] MEDS: Aspirin 81 MG TAB.CHEW NG (10:12)
--- NOTE | 2022-06-16 10:12 | CASEMGMT ---
Addendum entered by Joann Jacques 06/16/22 10:45: Call placed to Radha @ [facility]. She was made aware RN LIAM able to reach Chava, that her # was provided to him, and that he was made aware of importance to contact her today. Cover letter for Appeal received from Lily @ [facility], signed by Dr Brower, and faxed back to Lily @ this time along w/updated clinicals, SAT's, and PN from Dr Brower/electrical research engineer. Addendum entered by Joann Jacques 06/16/22 10:27: RN LIAM also provided this RN LIAM # to Chava for him to call if he has any further questions or needs. He voices appreciation. Addendum entered by Joann Jacques 06/16/22 10:24: RN LIAM placed call to pt's son, Chava. He was made aware insurance approval for [facility] is still pending. He was also informed Radha from [facility] is awaiting call from him for consent to transfer to LTAC and asked him to contact Radha today. Her # was provided to him @ this time. He states will call her today. Questions answered. Chava voiced appreciation. Original Note: RN LIAM NOTE: RN LIAM spoke w/Radha @ [facility] and informed her of decision to begin appeal for LTAC today. Radha states will fax RN CM cover letter for physician to sign and RN CM to fax it along w/updated clinicals to the # on the form. Radha also asked RN LIAM to send her updated clinicals. This was done via [facility] at this time. Per Radha, she still has not received a response back from pt's son to get consent for pt to go to LTAC. She was made aware both Chava and Judd work until 3:30 PM. She states she will try and contact them again today. Aaron MOSQUERA RN, CM
[2022-06-16] MEDS: CHLORHEXIDINE GLUC 2% CLOTH 1 EACH TOWELETTE TOPICAL (10:13)
[2022-06-16] MEDS: Furosemide 10 MG/ML Liquid 20 MG GT ×2 (10:13→18:10)
[2022-06-16] MEDS: Chlorhexidine 15 ML PO ×2 (10:13→22:01)
[2022-06-16] MEDS: Ciprofloxacin 400 MG/200 ML BAG 200 MG IV ×2 (10:14→22:02)
[2022-06-16] MEDS: Insulin Glargine-YFGN 100 UNIT/ML Pen 15 UNIT SC (12:15)
[2022-06-16] MEDS: Ondansetron 4 MG/2 ML Vial 2 MG IV (12:34)
--- NOTE | 2022-06-16 13:35 | PCM.PN.ID ---
Physical Exam Narrative On vent, no fever Const no apparent distress Resp normal air movement and clear to auscultation bilaterally Cardio regular rate and regular rhythm GI soft to palpation, non-tender and non-distended Skin Skin Narrative: wound vac on LLE ID ID: Route of nutrition/ use of supplements: [] Nutritional Intake: [] IV Site: [] Knight Catheter: [] Assessment & Plan Assessment/Plan (1) Septic shock: PLAN: On vent. On vanc for MR-CoNS L stump infection. Sputum cx with MR-CoNS and CRE pseudomonas. 06/07 started iv cipro. Temp better. L AKA incision less red, woun vac in place. Now wound cx also with VRE; 06/09 changed vanc to linezolid. Plan on stopping 06/17 if she continues to improve, but wbc is rising and temp is starting to increase. Low threshold for watkins-culture, repeat cxr Will follow
--- NOTE | 2022-06-16 14:21 | PN_ITS ---
Subjective Subjective Patient seen and examined. She was resting calmly. No acute events overnight per discussion with her nurse. Review of systems is otherwise negative. SHe remains tachyardic and BP is running low in the 90s systolic today. Objective Data Objective Data Vital Signs: Vital Signs Temp Pulse Resp BP Pulse Ox O2 Del Method O2 Flow Rate 98.4 F 126 H 21 H 99/89 H 91 Mechanical Ventilator 10 06/16/22 12:00 06/16/22 13:00 06/16/22 13:00 06/16/22 13:00 06/16/22 13:00 06/16/22 13:00 06/04/22 12:19 FiO2 30 06/16/22 13:00 Oxygen Flow Rate (L/min) 10 Oxygen Delivery Method Mechanical Ventilator Weight: 229 lb 15.074 oz Body Mass Index (BMI) 38.2 Intake & Output: Intake and Output for Last 24 Hours 06/14/22 06/15/22 06/16/22 23:59 23:59 23:59 Intake Total 2346.98 / 2549.48 2622.50 / 2622.50 903.25 / 903.25 Output Total 1050 / 1050 750 / 750 300 / 300 Balance 1296.98 / 1499.48 1872.50 / 1872.50 603.25 / 603.25 Lab / Micro Data Result Diagrams: 06/16/22 04:50 06/16/22 04:50 Labs: Laboratory Results - last 24 hr 06/15/22 17:34: POC Glucose 211 H 06/15/22 23:24: POC Glucose 202 H 06/16/22 04:50: WBC 27.6 H, RBC 3.05 L, Hgb 9.0 L, Hct 29.8 L, MCV 97.7, MCH 29.5, MCHC 30.2 L, RDW Std Deviation 61.5 H, RDW Coeff of Magen 17.6 H, Plt Count 220, MPV 10.9, Immature Gran % (Auto) 1.200 H, Neut % (Auto) 89.0 H, Lymph % (Auto) 5.7 L, Childress % (Auto) 3.2, Eos % (Auto) 0.6, Baso % (Auto) 0.3, Absolute Neuts (auto) 24.6 H, Absolute Lymphs (auto) 1.58, Nucleated RBC % 0, Anisocytosis 1+ 06/16/22 04:50: Sodium 137, Potassium 3.7, Chloride 112 H, Carbon Dioxide 21.0, Anion Gap 4 L, BUN 44 H, Creatinine 1.47 H, Estim Creat Clear Calc 32.51, Est GFR (MDRD) Af Amer 46 L, Est GFR (MDRD) Non-Af 38 L, BUN/Creatinine Ratio 29.9 H , Glucose 310 H, Calcium 8.6 Micro: Microbiology 06/04/22 22:25 Blood Culture (Wb) - Arm Left Blood Culture - Final No growth in 5 days. 06/04/22 18:30 Blood Culture (Wb) - Pic Blood Culture - Final No growth in 5 days. 06/05/22 03:52 Wound - Leg, Left Gram Stain - Final 06/05/22 03:52 Wound - Leg, Left Wound Culture - Final Staphylococcus haemolyticus Vancomycin Resist. E. faecium 06/04/22 13:05 Sputum, Induced/Lukens Gram Stain - Final 06/04/22 13:05 Sputum, Induced/Lukens Respiratory Culture - Final Staphylococcus haemolyticus Pseudomonas aeruginosa 06/04/22 20:00 Urine Catheter - Catheter Urine Culture - Final Culture exhibits no growth. 06/05/22 16:40 Stool C. difficile GDH Antigen & Toxins - Final 06/05/22 16:40 Stool C. difficile DNA Amplification - Final 05/28/22 11:30 Suture Gram Stain - Final 05/28/22 11:30 Suture Wound Culture - Final Vancomycin Resist. E. faecium Staphylococcus haemolyticus 05/24/22 06:35 Wound - Arm Left Gram Stain - Final 05/24/22 06:35 Wound - Arm Left Wound Culture - Final Pseudomonas aeruginosa Staphylococcus haemolyticus Staphylococcus epidermidis 05/24/22 06:35 Wound - Arm Left Anaerobic Culture - Final No anaerobic bacteria isolated. 05/19/22 14:30 Blood Culture (Wb) - Port Blood Culture - Final No growth in 5 days. 05/19/22 13:45 Blood Culture (Wb) - Port Blood Culture - Final No growth in 5 days. 05/20/22 17:40 Sputum, Induced/Lukens Gram Stain - Final 05/20/22 17:40 Sputum, Induced/Lukens Respiratory Culture - Final Escherichia coli 05/19/22 22:20 Transtracheal Aspirate Gram Stain - Final 05/19/22 22:20 Transtracheal Aspirate Respiratory Culture - Final Escherichia coli 05/20/22 04:25 Urine Catheter - Knight Urine Culture - Final Culture exhibits no growth. 05/20/22 04:25 Urine Catheter - Knight Legionella Antigen - Final 05/20/22 04:25 Urine Catheter - Knight Streptococcus pneumoniae Antigen (M - Final 05/19/22 22:20 Mucosa - Nasopharyngeal Respiratory Panel (PCR) - Final Rhythm Strip Rhythm Strip: A flutter Rate: 116 Ectopy: None Physical Exam Const alert Constitutional Narrative: on th ventilator via tracheostomy Orientation / Consciousness: lethargic HEENT normocephalic, head/scalp atraumatic and moist oral mucous membranes Eyes PERRL and EOMs intact bilaterally Neck no lymphadenopathy, supple and no JVD Lymph Lymphatic: no lymphadenopathy noted and no lymphedema noted Resp Resp Narrative: on ventilator via tracheostomy Cardio regular rate, regular rhythm, S1 normal heart sound, S2 normal heart sound and no murmurs Cardio Narrative: tachycardic GI normal to inspection, nondistended, normoactive bowel sounds, soft to palpation, non-tender and non-distended Extremity normal capillary refill, no clubbing, cyanosis or edema and no calf tenderness Extremity Narrative: Left AKA stump with dressing bandage. Right lower extremity edema is resolving Skin Skin Narrative: left AKA, intact stump General Skin Exam: no breakdown Neuro CN's II-XII intact bilaterally, no focal motor deficits, no sensory deficits noted and deep tendon reflexes 2+ bilaterally Neuro Narrative: on ventilator via tracheostomy. lethargic Psych Psych Narrative: lethargic Assessment & Plan Assessment/Plan (1) Acute on chronic respiratory failure with hypoxia and hypercapnia: (2) Septic shock: (3) Atrial fibrillation with rapid ventricular response: PLAN: Plan #Acute hypoxic respiratory failure due to HFpEF and E coli pneumonia * Was intubated at the start of her stay also been admitted for E. coli pneumonia. She completed a course of meropenem was placed on Lasix and subsequently sent to the floor. However hospital course was complicated by worsening respiratory status so she was sent back to the ICU on 06/04/2022 and intubated again. * She is on the vent via the trach. * was on IV vancomycin. Sputum cultures grew staph hemolyticus sensitive to vancomycin. ID on board. She is now on IV ciprofloxacin and linezolid * Now on IV Cipro. Will also need PEG tube placement. * Breathing treatments with bronchodilators. Titrate oxygen to maintain saturation above 90%. * has had tracheostomy done * Now on ventilator via trach. #Hypernatremia: Resolved #Left lower extremity wound infection * Status post left AKA in the left AKA stump was having some discharge. Wound cultures grew staph hemolyticus and Enterococcus vacation. * Remains on IV ciprofloxacin. ID on board. ALso on linezolid * wbc has risen sharply to 27 today. If wbc continues to trend upwards, will get repeat blood and urine cultures and get a CXR to evaluate for ventilator associated pneumonia. * #A-fib: * On p.o. amiodarone. Still tachycardic. * BP is running low so unable to increase amiodarone dose now. IV lopressor prn #Hypokalemia:resolved #MIKE on CKD: resolved. #Type 2 diabetes mellitus: On insulin sliding scale.? 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 Intact dressing over stump. Will monitor #Hypothyroidism;on synthroid.? #CAD s/p stent: On aspirin and statin #Dysphagia: * s/p PEG tube insertion * DVT prophylaxis: On heparin Total time spent on evaluation and management of patient, reviewing chart and specialist notes, discussion with nursing and ancillary staff as well as documentation: 43 mins Disposition: Awaiting placement in LTAC Charges/Coding Visit Charges Inpatient E&M: 23057 Subs Hosp L2
[2022-06-16 14:35] LABS: Bedside Glucose 250 mg/dL (74-106)
--- NOTE | 2022-06-16 14:55 | RAD_ITS ---
STUDY: X-RAY - ABDOMEN/PELVIS REASON FOR EXAM: Female, 67 years old. Vomiting and abdominal pain. TECHNIQUE: Two AP supine views of the abdomen and pelvis. COMPARISON: May 19, 2022 FINDINGS: Study is limited due to poor penetration secondary to patient habitus. Normal visualized lung bases. There is overall paucity of bowel gas with air seen in the distal colon. There is no demonstrated free abdominal air. There appears to be a gastrostomy tube. Stable calcifications in the left abdomen. The visualized liver, spleen and kidneys are grossly normal in size and morphology. There appears to be a Knight catheter. There are diffuse degenerative changes of the visualized lumbar spine. RAD/Abdomen Single View (Portable) IMPRESSION: 1. Gastrostomy tube not previously noted. 2. Paucity of bowel gas without obstruction. 3. No other major interval change. Electronically Signed: All Lester DO at 16:28 EDT ,
[2022-06-16 21:46] LABS: Bedside Glucose 172 mg/dL (74-106)
[2022-06-16 23:55] LABS: Bedside Glucose 149 mg/dL (74-106)
[2022-06-17] VITALS (37 sets, daily range): BP systolic 94–125; BP diastolic 62–93; PULSE 114–145; RESP 10–30; TEMP 37.1–37.7; O2SAT 91–99; BMI 38.0
[2022-06-17] MEDS: Metoclopramide 10 MG/2 ML Vial 5 MG IV ×5 (00:54→23:55)
[2022-06-17] MEDS: Ipratropium 0.5 MG/2.5 ML SOLUTION INHALATION ×4 (01:45→19:18)
[2022-06-17] MEDS: Ondansetron 4 MG/2 ML Vial 2 MG IV ×2 (02:37→17:11)
[2022-06-17 04:30] LABS: Absolute Lymphocyte Count 0.59 X10^3/uL (0.83-4.51); Absolute Neutrophil Count 11.8 X10^3/uL (2.0-7.7); Basophil# 0.03 X10^3/uL; Basophil% 0.2 % (0-1); Eosinophil# 0.13 X10^3/uL; Hematocrit 23.5 % (37-47); Hemoglobin 7.2 g/dL (12.0-15.0); Lymphocyte # 0.59 X10^3/ul (0.83-4.51); Lymphocyte % 4.5 % (19-41); Mean Corp Hgb Conc 30.6 g/dL (32-36); Mean Corpuscular Hgb 29.4 pg (27.0-32.0); Mean Corpuscular Volume 95.9 fL (81-99); Mean Platelet Vol. 10.8 fl (6.2-12.0); Monocyte# 0.45 X10^3/uL; Monocyte% 3.4 % (0-10); NRBC Flagged by Analyzer 0 % (0-5); Neutrophil # 11.81 X10^3/uL (2.7-7.7); Neutrophil % 90.1 % (47-70); POSITIVE DIFFERENTIAL YES; Platelet Count 139 K/mm3 (150-450); RBC Distribution Width CV 17.4 % (11.6-14.6); RBC Distribution Width SD 59.4 fl (35.1-43.9); Red Blood Count 2.45 M/mm3 (4.2-5.4); White Blood Count 13.1 K/mm3 (4.4-11.0)
[2022-06-17 04:49] LABS: Anion Gap 2 (5-15); BUN 42 mg/dL (7-18); BUN/Creat Ratio 34.7 RATIO (10-20); Calcium,Total 8.4 mg/dL (8.5-10.1); Chloride 115 mmol/L (98-107); Creatinine, Serum 1.21 mg/dL (0.55-1.02); EST Glomerular Filtration Rate 47 mL/min (>60); Est Glom Filt Rate - Afr Amer 57 mL/min (>60); Estimated Creatinine Clearance 39.49 ml/min; Glucose 155 mg/dL (74-106); Potassium 3.5 mmol/L (3.5-5.1); Sodium Level 140 mmol/L (136-145)
[2022-06-17 04:55] LABS: Differential Indicated SCAN CRITERIA MET
[2022-06-17 05:01] LABS: Differential Comment SCANNED
[2022-06-17] MEDS: Levothyroxine 125 MCG Tablet GT (05:37)
[2022-06-17] MEDS: Heparin Injection (Vial) 5,000 UNIT/ML VIAL 5000 UNIT SC ×3 (05:38→20:27)
[2022-06-17] MEDS: Nystatin Powder 15gm Bottle 1 APPLIC TOPICAL ×3 (05:38→20:28)
--- NOTE | 2022-06-17 05:51 | PN.CC_ITS ---
Assessment & Plan Assessment/Plan (1) Septic shock: PLAN: Plan RECOMMENDATIONS: 1. Continue to wean FiO2 and PEEP to maintain saturations at or above 90%. 2. Antimicrobials per ID recommendations. 3. Continue diuresis as tolerated by hemodynamics and renal function. 4. Hold tube feeds for now and continue Reglan as ordered. 5. Continue appropriate ICU prophylaxis. 6. Disposition planning per case management. IMPRESSIONS: 1. Septic shock Resolved. Multiple sources of infection have been identified during this hospitalization, including ESBL E. coli pneumonia and wound VRE. The patient remains hemodynamically stable off of vasopressor support. Antibiotics are being continued per ID recommendations. 2. Encephalopathy Improved. Most likely related to acute CO2 retention. It is unclear as to whether the patient had access to a BiPAP at her nursing facility and whether or not it was being utilized. The patient continues to fail to use BiPAP following extubation in the hospital. Failure to use BiPAP will likely lead to recurrent metabolic encephalopathy secondary to elevated CO2 levels. Therefore, the patient ultimately underwent successful tracheostomy and PEG tube placement. 3. Acute on chronic combined respiratory failure The patient did grow ESBL E. coli in her sputum indicating pneumonia on presentation as an etiology of her initial respiratory failure. The patient has had multiple hospitalizations related to respiratory failure in the setting of noncompliance with PAP therapy, which ultimately leads to CO2 narcosis and the need for intubation. In light of these repeated episodes, the patient underwent tracheostomy and PEG tube placement. 4. Acute on chronic kidney disease Stable. Most likely prerenal in etiology in the setting of #1. Creatinine has worsened recently, likely secondary to decreased perfusion with acidosis. We will plan to continue to monitor urine output for now. No current indication for renal replacement therapy. 5. 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 Continue to monitor H&H daily. Transfuse if hemoglobin drops below 7 g/dL. Continue PPI therapy as ordered. Sutures on AKA appear to be holding at this time despite anasarca. The patient likely has an underlying ileus. Therefore tube feeds will remain on hold today and Reglan will be continued. TIME: 32 minutes of critical care time, independent of procedures, was spent addressing the patient septic shock, encephalopathy, acute on chronic combined respiratory failure, acute on chronic kidney disease, review of all data and collaboration with the care team. Subjective Subjective The patient was seen and examined at the bedside this morning. Events from the last 24 hours have been reviewed. The patient is currently afebrile, hemodynamically stable and maintaining appropriate oxygen saturations on assist control mode mechanical ventilation with an FiO2 requirement of 30%. Hemoglobin is down to 7.2 g/dL. Platelet count is dropped to 139,000. Creatinine has improved to 1.21. The patient again had an emesis event overnight. Her tube feeds remain on hold. She did complain of a dry mouth and was requesting water this morning. Objective Data Objective Data The patient's most recent lab work, culture data and imaging studies have all been personally reviewed.? Surface echocardiogram from May 08 demonstrated normal LV size and function with an ejection fraction of 55%.? Mild to moderate global RV systolic dysfunction was noted along with a pulmonary artery systolic pressure of 50 mmHg.? Sputum culture dated May 21 was positive for ESBL E. coli. Sputum from June 04 was positive for Pseudomonas aeruginosa. Leg culture was positive for VRE. Vital Signs: Vital Signs Temp Pulse Resp BP Pulse Ox O2 Del Method O2 Flow Rate 98.9 F 123 H 28 H 107/67 93 Mechanical Ventilator 30 06/17/22 02:00 06/17/22 05:20 06/17/22 05:20 06/17/22 04:00 06/17/22 05:20 06/17/22 04:00 06/16/22 14:00 FiO2 30 06/17/22 04:00 Oxygen Flow Rate (L/min) 30 Oxygen Delivery Method Mechanical Ventilator Weight: 229 lb 15.074 oz Body Mass Index (BMI) 38.2 Intake & Output: Intake and Output for Last 24 Hours 06/15/22 06/16/22 06/17/22 23:59 23:59 23:59 Intake Total 2622.50 / 2622.50 1553.25 / 1553.25 100 / 100 Output Total 750 / 750 450 / 625 375 / 375 Balance 1872.50 / 1872.50 1103.25 / 928.25 -275 / -275 Lab / Micro Data Attestation: I reviewed the patient's lab results. Result Diagrams: 06/18/22 04:15 06/18/22 04:15 Labs: Laboratory Results - last 24 hr 06/15/22 23:24: POC Glucose 202 H 06/16/22 12:13: POC Glucose 250 H 06/16/22 18:09: POC Glucose 172 H 06/16/22 23:27: POC Glucose 149 H 06/17/22 04:00: WBC 13.1 H, RBC 2.45 L, Hgb 7.2 L, Hct 23.5 L, MCV 95.9, MCH 29.4, MCHC 30.6 L, RDW Std Deviation 59.4 H, RDW Coeff of Magen 17.4 H, Plt Count 139 L, MPV 10.8, Immature Gran % (Auto) 0.800, Neut % (Auto) 90.1 H, Lymph % (Auto) 4.5 L, Bandera % (Auto) 3.4, Eos % (Auto) 1.0, Baso % (Auto) 0.2, Absolute Neuts (auto) 11.8 H, Absolute Lymphs (auto) 0.59 L, Nucleated RBC % 0, Diff erential Comment SCANNED 06/17/22 04:00: Sodium 140, Potassium 3.5, Chloride 115 H, Carbon Dioxide 23.0, Anion Gap 2 L, BUN 42 H, Creatinine 1.21 H, Estim Creat Clear Calc 39.49, Est GFR (MDRD) Af Amer 57 L, Est GFR (MDRD) Non-Af 47 L, BUN/Creatinine Ratio 34.7 H , Glucose 155 H, Calcium 8.4 L Micro: Microbiology 06/04/22 22:25 Blood Culture (Wb) - Arm Left Blood Culture - Final No growth in 5 days. 06/04/22 18:30 Blood Culture (Wb) - Pic Blood Culture - Final No growth in 5 days. 06/05/22 03:52 Wound - Leg, Left Gram Stain - Final 06/05/22 03:52 Wound - Leg, Left Wound Culture - Final Staphylococcus haemolyticus Vancomycin Resist. E. faecium 06/04/22 13:05 Sputum, Induced/Lukens Gram Stain - Final 06/04/22 13:05 Sputum, Induced/Lukens Respiratory Culture - Final Staphylococcus haemolyticus Pseudomonas aeruginosa 06/04/22 20:00 Urine Catheter - Catheter Urine Culture - Final Culture exhibits no growth. 06/05/22 16:40 Stool C. difficile GDH Antigen & Toxins - Final 06/05/22 16:40 Stool C. difficile DNA Amplification - Final 05/28/22 11:30 Suture Gram Stain - Final 05/28/22 11:30 Suture Wound Culture - Final Vancomycin Resist. E. faecium Staphylococcus haemolyticus 05/24/22 06:35 Wound - Arm Left Gram Stain - Final 05/24/22 06:35 Wound - Arm Left Wound Culture - Final Pseudomonas aeruginosa Staphylococcus haemolyticus Staphylococcus epidermidis 05/24/22 06:35 Wound - Arm Left Anaerobic Culture - Final No anaerobic bacteria isolated. 05/19/22 14:30 Blood Culture (Wb) - Port Blood Culture - Final No growth in 5 days. 05/19/22 13:45 Blood Culture (Wb) - Port Blood Culture - Final No growth in 5 days. 05/20/22 17:40 Sputum, Induced/Lukens Gram Stain - Final 05/20/22 17:40 Sputum, Induced/Lukens Respiratory Culture - Final Escherichia coli 05/19/22 22:20 Transtracheal Aspirate Gram Stain - Final 05/19/22 22:20 Transtracheal Aspirate Respiratory Culture - Final Escherichia coli 05/20/22 04:25 Urine Catheter - Knight Urine Culture - Final Culture exhibits no growth. 05/20/22 04:25 Urine Catheter - Knight Legionella Antigen - Final 05/20/22 04:25 Urine Catheter - Knight Streptococcus pneumoniae Antigen (M - Final 05/19/22 22:20 Mucosa - Nasopharyngeal Respiratory Panel (PCR) - Final Radiography Diagnostic Testing: Radiology Impression KUB X-Ray 06/16/22 14:55 IMPRESSION: 1. Gastrostomy tube not previously noted. 2. Paucity of bowel gas without obstruction. 3. No other major interval change. Electronically Signed: All Lester DO at 16:28 EDT Reading Location ID and State: [address] [place] [address] Tel [phone], Service support , Rhythm Strip Rhythm Strip: A flutter Rate: 116 Ectopy: None Physical Exam Const alert and no apparent distress Constitutional Narrative: Remains mechanically ventilated. General Appearance: cooperative HEENT normocephalic and head/scalp atraumatic Eyes PERRL and EOMs intact bilaterally Neck supple Neck Narrative: Stable tracheostomy site. General: trachea midline Chest inspection of chest normal Resp normal respiratory effort Auscultation: diminished lung sounds Cardio S1 normal heart sound and S2 normal heart sound Rhythm: abnormal rhythm GI normal to inspection, nondistended, normoactive bowel sounds Inspection: GI tube present Extremity Extremity Narrative: Left AKA Skin General Skin Exam: venous stasis and dermatitis Neuro moves all extremities and no focal motor deficits Charges/Coding Procedures Hospitalists Procedures: 52397 Critial Care 1st Hr
[2022-06-17 06:06] LABS: Bedside Glucose 136 mg/dL (74-106)
[2022-06-17] MEDS: Lansoprazole 15 MG Capsule.DR 30 MG NG (07:58)
[2022-06-17] MEDS: Linezolid 600 MG Tablet GT ×2 (07:58→20:27)
[2022-06-17] MEDS: Juven (unflavored) Packet 1 PACKET GT (07:58)
[2022-06-17] MEDS: Aspirin 81 MG TAB.CHEW NG (07:58)
[2022-06-17] MEDS: Furosemide 10 MG/ML Liquid 20 MG GT ×2 (07:59→17:53)
[2022-06-17] MEDS: Chlorhexidine 15 ML PO ×2 (07:59→20:29)
[2022-06-17] MEDS: Menthol/Lanolin/Calamine/Znox 113 GM Tube 1 APPLIC TOPICAL ×2 (07:59→20:28)
[2022-06-17] MEDS: Amiodarone 200 MG Tablet NG ×2 (07:59→20:27)
[2022-06-17] MEDS: Potassium Chloride Oral Soln 20 MEQ/15 ML UDC 40 MEQ GT (09:15)
[2022-06-17] MEDS: Ciprofloxacin 400 MG/200 ML BAG 200 MG IV ×2 (09:15→20:27)
[2022-06-17] MEDS: CHLORHEXIDINE GLUC 2% CLOTH 1 EACH TOWELETTE TOPICAL (09:16)
--- NOTE | 2022-06-17 09:47 | PN_ITS ---
Subjective Subjective Patient seen and examined. She was more alert today and able to nod or shake her head in response to questions. She denied to be in pain and had no other symptoms. Review of systems otherwise negative. She remains tachycardic. Objective Data Objective Data Vital Signs: Vital Signs Temp Pulse Resp BP Pulse Ox O2 Del Method O2 Flow Rate 99.0 F 129 H 23 H 94/65 97 Mechanical Ventilator 30 06/17/22 09:00 06/17/22 09:00 06/17/22 09:00 06/17/22 09:00 06/17/22 09:00 06/17/22 09:00 06/16/22 14:00 FiO2 30 06/17/22 09:00 Oxygen Flow Rate (L/min) 30 Oxygen Delivery Method Mechanical Ventilator Weight: 228 lb 2.855 oz Body Mass Index (BMI) 38.0 Intake & Output: Intake and Output for Last 24 Hours 06/15/22 06/16/22 06/17/22 23:59 23:59 23:59 Intake Total 2622.50 / 2622.50 1553.25 / 1553.25 300 / 300 Output Total 750 / 750 450 / 625 375 / 375 Balance 1872.50 / 1872.50 1103.25 / 928.25 -75 / -75 Lab / Micro Data Result Diagrams: 06/17/22 04:00 06/17/22 04:00 Labs: Laboratory Results - last 24 hr 06/16/22 12:13: POC Glucose 250 H 06/16/22 18:09: POC Glucose 172 H 06/16/22 23:27: POC Glucose 149 H 06/17/22 04:00: WBC 13.1 H, RBC 2.45 L, Hgb 7.2 L, Hct 23.5 L, MCV 95.9, MCH 29.4, MCHC 30.6 L, RDW Std Deviation 59.4 H, RDW Coeff of Magen 17.4 H, Plt Count 139 L, MPV 10.8, Immature Gran % (Auto) 0.800, Neut % (Auto) 90.1 H, Lymph % (Auto) 4.5 L, Talbot % (Auto) 3.4, Eos % (Auto) 1.0, Baso % (Auto) 0.2, Absolute Neuts (auto) 11.8 H, Absolute Lymphs (auto) 0.59 L, Nucleated RBC % 0, Differential Comment SCANNED 06/17/22 04:00: Sodium 140, Potassium 3.5, Chloride 115 H, Carbon Dioxide 23.0, Anion Gap 2 L, BUN 42 H, Creatinine 1.21 H, Estim Creat Clear Calc 39.49, Est GFR (MDRD) Af Amer 57 L, Est GFR (MDRD) Non-Af 47 L, BUN/Creatinine Ratio 34.7 H , Glucose 155 H, Calcium 8.4 L 06/17/22 05:36: POC Glucose 136 H Micro: Microbiology 06/04/22 22:25 Blood Culture (Wb) - Arm Left Blood Culture - Final No growth in 5 days. 06/04/22 18:30 Blood Culture (Wb) - Pic Blood Culture - Final No growth in 5 days. 06/05/22 03:52 Wound - Leg, Left Gram Stain - Final 06/05/22 03:52 Wound - Leg, Left Wound Culture - Final Staphylococcus haemolyticus Vancomycin Resist. E. faecium 06/04/22 13:05 Sputum, Induced/Lukens Gram Stain - Final 06/04/22 13:05 Sputum, Induced/Lukens Respiratory Culture - Final Staphylococcus haemolyticus Pseudomonas aeruginosa 06/04/22 20:00 Urine Catheter - Catheter Urine Culture - Final Culture exhibits no growth. 06/05/22 16:40 Stool C. difficile GDH Antigen & Toxins - Final 06/05/22 16:40 Stool C. difficile DNA Amplification - Final 05/28/22 11:30 Suture Gram Stain - Final 05/28/22 11:30 Suture Wound Culture - Final Vancomycin Resist. E. faecium Staphylococcus haemolyticus 05/24/22 06:35 Wound - Arm Left Gram Stain - Final 05/24/22 06:35 Wound - Arm Left Wound Culture - Final Pseudomonas aeruginosa Staphylococcus haemolyticus Staphylococcus epidermidis 05/24/22 06:35 Wound - Arm Left Anaerobic Culture - Final No anaerobic bacteria isolated. 05/19/22 14:30 Blood Culture (Wb) - Port Blood Culture - Final No growth in 5 days. 05/19/22 13:45 Blood Culture (Wb) - Port Blood Culture - Final No growth in 5 days. 05/20/22 17:40 Sputum, Induced/Lukens Gram Stain - Final 05/20/22 17:40 Sputum, Induced/Lukens Respiratory Culture - Final Escherichia coli 05/19/22 22:20 Transtracheal Aspirate Gram Stain - Final 05/19/22 22:20 Transtracheal Aspirate Respiratory Culture - Final Escherichia coli 05/20/22 04:25 Urine Catheter - Knight Urine Culture - Final Culture exhibits no growth. 05/20/22 04:25 Urine Catheter - Knight Legionella Antigen - Final 05/20/22 04:25 Urine Catheter - Knight Streptococcus pneumoniae Antigen (M - Final 05/19/22 22:20 Mucosa - Nasopharyngeal Respiratory Panel (PCR) - Final Radiography Diagnostic Testing: Radiology Impression KUB X-Ray 06/16/22 14:55 IMPRESSION: 1. Gastrostomy tube not previously noted. 2. Paucity of bowel gas without obstruction. 3. No other major interval change. Electronically Signed: All Lester DO at 16:28 EDT Reading Location ID and State: [address] [place] [address] Tel [phone], Service support , Rhythm Strip Rhythm Strip: A flutter Rate: 116 Ectopy: None Physical Exam Const alert Constitutional Narrative: on the ventilator via tracheostomy General Appearance: cooperative HEENT normocephalic, head/scalp atraumatic and moist oral mucous membranes Eyes PERRL and EOMs intact bilaterally Neck no lymphadenopathy, supple and no JVD Lymph Lymphatic: no lymphadenopathy noted and no lymphedema noted Resp Resp Narrative: on ventilator via tracheostomy. diminished breath souns bibawally, no wheezes or crackles. Cardio regular rhythm, S1 normal heart sound, S2 normal heart sound and no murmurs Cardio Narrative: tachycardic GI normal to inspection, nondistended, normoactive bowel sounds, soft to palpation, non-tender and non-distended Extremity normal capillary refill, no clubbing, cyanosis or edema and no calf tenderness Extremity Narrative: Left AKA stump with dressing bandage. Right lower extremity edema is resolving Skin Skin Narrative: left AKA, intact stump General Skin Exam: no breakdown Neuro CN's II-XII intact bilaterally Neuro Narrative: on ventilator via tracheostomy. lethargic Psych Psych Narrative: flat affect Appearance: appropriate Assessment & Plan Assessment/Plan (1) Acute on chronic respiratory failure with hypoxia and hypercapnia: (2) Septic shock: (3) Atrial fibrillation with rapid ventricular response: PLAN: Plan #Acute hypoxic respiratory failure due to HFpEF and E coli pneumonia * Was intubated at the start of her stay also been admitted for E. coli [facility]. She completed a course of meropenem was placed on Lasix and subsequently sent to the floor. However hospital course was complicated by worsening respiratory status so she was sent back to the ICU on 06/04/2022 and intubated again. * She is on the vent via the trach. * was on IV vancomycin. Sputum cultures grew staph hemolyticus sensitive to vancomycin. ID on board. She is now on IV ciprofloxacin and linezolid * Now on IV Cipro. Will also need PEG tube placement. * Breathing treatments with bronchodilators. Titrate oxygen to maintain saturation above 90%. * has had tracheostomy done * remains on ventilator via trach. #Hypernatremia: Resolved #Left lower extremity wound infection * Status post left AKA in the left AKA stump was having some discharge. Wound cultures grew staph hemolyticus and Enterococcus vacation. * Remains on IV ciprofloxacin. ID on board. ALso on linezolid * wbc has risen sharply to 27 today. If wbc continues to trend upwards, will get repeat blood and urine cultures and get a CXR to evaluate for ventilator associated pneumonia. * #A-fib: * On p.o. amiodarone. Still tachycardic. * BP is running low so unable to increase amiodarone dose now. IV lopressor prn #Anemia * Hb is 7.2 today. hb has been betwee 7-9 since admission * transfuse if Hb <7 * will monitor. stop heparin if anemia worsens * #Hypokalemia:resolved #MIKE on CKD: resolved. #Type 2 diabetes mellitus: On insulin sliding scale.? 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 Intact dressing over stump. Will monitor #Hypothyroidism;on synthroid.? #CAD s/p stent: On aspirin and statin #Dysphagia: * s/p PEG tube insertion * DVT prophylaxis: On heparin Total time spent on evaluation and management of patient, reviewing chart and specialist notes, discussion with nursing and ancillary staff as well as documentation: 40 mins Disposition: Awaiting placement in LTAC Charges/Coding Visit Charges Inpatient E&M: 38820 Subs Hosp L2
[2022-06-17 11:15] LABS: Bedside Glucose 158 mg/dL (74-106)
[2022-06-17] MEDS: Insulin Lispro 100 UNIT/ML INSULN.PEN SC ×2 (17:13→23:55)
[2022-06-17 17:41] LABS: Bedside Glucose 164 mg/dL (74-106)
[2022-06-18] VITALS (39 sets, daily range): BP systolic 94–125; BP diastolic 57–90; PULSE 121–149; RESP 12–28; TEMP 36.7–37.7; O2SAT 90–100; BMI 37.2
[2022-06-18 00:21] LABS: Bedside Glucose 182 mg/dL (74-106)
[2022-06-18] MEDS: Ipratropium 0.5 MG/2.5 ML SOLUTION INHALATION ×4 (01:54→19:12)
[2022-06-18 04:25] LABS: Absolute Lymphocyte Count 0.51 X10^3/uL (0.83-4.51); Absolute Neutrophil Count 11.1 X10^3/uL (2.0-7.7); Basophil# 0.02 X10^3/uL; Basophil% 0.2 % (0-1); Eosinophil# 0.01 X10^3/uL; Eosinophils% 0.1 % (0-5); Hematocrit 26.1 % (37-47); Hemoglobin 8.1 g/dL (12.0-15.0); Lymphocyte # 0.51 X10^3/ul (0.83-4.51); Lymphocyte % 4.2 % (19-41); Mean Corpuscular Hgb 29.7 pg (27.0-32.0); Mean Corpuscular Volume 95.6 fL (81-99); Mean Platelet Vol. 10.5 fl (6.2-12.0); Monocyte# 0.49 X10^3/uL; NRBC Flagged by Analyzer 0 % (0-5); Neutrophil # 11.05 X10^3/uL (2.7-7.7); Neutrophil % 90.8 % (47-70); POSITIVE DIFFERENTIAL YES; Platelet Count 159 K/mm3 (150-450); RBC Distribution Width CV 17.7 % (11.6-14.6); RBC Distribution Width SD 61.2 fl (35.1-43.9); Red Blood Count 2.73 M/mm3 (4.2-5.4); White Blood Count 12.2 K/mm3 (4.4-11.0)
[2022-06-18 04:32] LABS: Differential Indicated SCAN CRITERIA MET
[2022-06-18 04:38] LABS: Anion Gap 7 (5-15); BUN 41 mg/dL (7-18); BUN/Creat Ratio 33.1 RATIO (10-20); Calcium,Total 8.6 mg/dL (8.5-10.1); Chloride 114 mmol/L (98-107); Creatinine, Serum 1.24 mg/dL (0.55-1.02); EST Glomerular Filtration Rate 46 mL/min (>60); Est Glom Filt Rate - Afr Amer 56 mL/min (>60); Estimated Creatinine Clearance 38.54 ml/min; Glucose 218 mg/dL (74-106); Potassium 3.4 mmol/L (3.5-5.1); Sodium Level 140 mmol/L (136-145)
[2022-06-18] MEDS: Heparin Injection (Vial) 5,000 UNIT/ML VIAL 5000 UNIT SC ×3 (05:49→21:29)
[2022-06-18] MEDS: Metoclopramide 10 MG/2 ML Vial 5 MG IV ×3 (05:50→17:01)
[2022-06-18] MEDS: Insulin Lispro 100 UNIT/ML INSULN.PEN SC ×3 (05:50→16:57)
[2022-06-18] MEDS: Levothyroxine 125 MCG Tablet GT (05:50)
[2022-06-18] MEDS: Nystatin Powder 15gm Bottle 1 APPLIC TOPICAL ×3 (05:50→21:31)
--- NOTE | 2022-06-18 06:01 | PCM.PN.INT ---
Assessment & Plan Assessment/Plan (1) Septic shock: PLAN: Plan RECOMMENDATIONS: 1. Continue to wean FiO2 to maintain saturations at or above 90%. 2. Antimicrobials per ID recommendations. 3. Continue diuresis as tolerated by hemodynamics and renal function. 4. Hold tube feeds for now and continue Reglan as ordered. 5. Restart beta-skyler and up-titrate as tolerated. 6. Continue appropriate ICU prophylaxis. 7. Disposition planning per case management. IMPRESSIONS: 1. Septic shock Resolved. Multiple sources of infection have been identified during this hospitalization, including ESBL E. coli pneumonia and wound VRE. The patient remains hemodynamically stable off of vasopressor support. Antibiotics are being continued per ID recommendations. 2. Encephalopathy Improved. Most likely related to acute CO2 retention. It is unclear as to whether the patient had access to a BiPAP at her nursing facility and whether or not it was being utilized. The patient continues to fail to use BiPAP following extubation in the hospital. Failure to use BiPAP will likely lead to recurrent metabolic encephalopathy secondary to elevated CO2 levels. Therefore, the patient ultimately underwent successful tracheostomy and PEG tube placement. 3. Acute on chronic combined respiratory failure The patient did grow ESBL E. coli in her sputum indicating pneumonia on presentation as an etiology of her initial respiratory failure. The patient has had multiple hospitalizations related to respiratory failure in the setting of noncompliance with PAP therapy, which ultimately leads to CO2 narcosis and the need for intubation. In light of these repeated episodes, the patient underwent tracheostomy and PEG tube placement. 4. Acute on chronic kidney disease Stable. Most likely prerenal in etiology in the setting of #1. Creatinine has worsened recently, likely secondary to decreased perfusion with acidosis. We will plan to continue to monitor urine output for now. No current indication for renal replacement therapy. 5. 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 Continue to monitor H&H daily. Transfuse if hemoglobin drops below 7 g/dL. Continue PPI therapy as ordered. Sutures on AKA appear to be holding at this time despite anasarca. The patient likely has an underlying ileus. Therefore tube feeds will remain on hold today and Reglan will be continued. This note was generated with [employer] Team Zone[employer] software. It may contain incorrect words, spelling, and punctuation that were not noted in checking the note before signing. Subjective Subjective The patient was seen and examined at the bedside this morning. Events from the last 24 hours have been reviewed. The patient is currently afebrile, hemodynamically stable and maintaining appropriate oxygen saturations on assist control mode mechanical ventilation with an FiO2 requirement of 30%. The patient again was noted by nursing staff to have an emesis event overnight. Hemoglobin is stable at 8.1 g/dL. Creatinine is stable at 1.24. The patient continues to fail spontaneous breathing trials. Objective Data Objective Data The patient's most recent lab work, culture data and imaging studies have all been personally reviewed.? Surface echocardiogram from May 08 demonstrated normal LV size and function with an ejection fraction of 55%.? Mild to moderate global RV systolic dysfunction was noted along with a pulmonary artery systolic pressure of 50 mmHg.? Sputum culture dated May 21 was positive for ESBL E. coli. Sputum from June 04 was positive for Pseudomonas aeruginosa. Leg culture was positive for VRE. Vital Signs: Vital Signs Temp Pulse Resp BP Pulse Ox O2 Del Method O2 Flow Rate 99.8 F H 145 H 26 H 119/82 H 97 Mechanical Ventilator 30 06/18/22 01:00 06/18/22 05:32 06/18/22 05:32 06/18/22 02:00 06/18/22 05:32 06/18/22 02:00 06/16/22 14:00 FiO2 30 06/18/22 02:00 Oxygen Flow Rate (L/min) 30 Oxygen Delivery Method Mechanical Ventilator Weight: 228 lb 2.855 oz Body Mass Index (BMI) 38.0 Intake & Output: Intake and Output for Last 24 Hours 06/16/22 06/17/22 06/18/22 23:59 23:59 23:59 Intake Total 1553.25 / 1553.25 800 / 800 Output Total 450 / 625 675 / 875 200 / 200 Balance 1103.25 / 928.25 125 / -75 -200 / -200 Lab / Micro Data Attestation: I reviewed the patient's lab results. Result Diagrams: 06/18/22 04:15 06/18/22 04:15 Labs: Laboratory Results - last 24 hr 06/17/22 05:36: POC Glucose 136 H 06/17/22 10:56: POC Glucose 158 H 06/17/22 17:10: POC Glucose 164 H 06/17/22 23:54: POC Glucose 182 H 06/18/22 04:15: WBC 12.2 H, RBC 2.73 L, Hgb 8.1 L, Hct 26.1 L, MCV 95.6, MCH 29.7, MCHC 31.0 L, RDW Std Deviation 61.2 H, RDW Coeff of Magen 17.7 H, Plt Count 159, MPV 10.5, Immature Gran % (Auto) 0.700, Neut % (Auto) 90.8 H, Lymph % (Auto) 4.2 L, [place] % (Auto) 4.0, Eos % (Auto) 0.1, Baso % (Auto) 0.2, Absolute Neuts (auto) 11.1 H, Absolute Lymphs (auto) 0.51 L, Nucleated RBC % 0 06/18/22 04:15: Sodium 140, Potassium 3.4 L, Chloride 114 H, Carbon Dioxide 19.0 L, Anion Gap 7, BUN 41 H, Creatinine 1.24 H, Estim Creat Clear Calc 38.54, Est GFR (MDRD) Af Amer 56 L, Est GFR (MDRD) Non-Af 46 L, BUN/Creatinine Ratio 33.1 H, Glucose 218 H, Calcium 8.6 Micro: Microbiology 06/04/22 22:25 Blood Culture (Wb) - Arm Left Blood Culture - Final No growth in 5 days. 06/04/22 18:30 Blood Culture (Wb) - Pic Blood Culture - Final No growth in 5 days. 06/05/22 03:52 Wound - Leg, Left Gram Stain - Final 06/05/22 03:52 Wound - Leg, Left Wound Culture - Final Staphylococcus haemolyticus Vancomycin Resist. E. faecium 06/04/22 13:05 Sputum, Induced/Lukens Gram Stain - Final 06/04/22 13:05 Sputum, Induced/Lukens Respiratory Culture - Final Staphylococcus haemolyticus Pseudomonas aeruginosa 06/04/22 20:00 Urine Catheter - Catheter Urine Culture - Final Culture exhibits no growth. 06/05/22 16:40 Stool C. difficile GDH Antigen & Toxins - Final 06/05/22 16:40 Stool C. difficile DNA Amplification - Final 05/28/22 11:30 Suture Gram Stain - Final 05/28/22 11:30 Suture Wound Culture - Final Vancomycin Resist. E. faecium Staphylococcus haemolyticus 05/24/22 06:35 Wound - Arm Left Gram Stain - Final 05/24/22 06:35 Wound - Arm Left Wound Culture - Final Pseudomonas aeruginosa Staphylococcus haemolyticus Staphylococcus epidermidis 05/24/22 06:35 Wound - Arm Left Anaerobic Culture - Final No anaerobic bacteria isolated. 05/19/22 14:30 Blood Culture (Wb) - Port Blood Culture - Final No growth in 5 days. 05/19/22 13:45 Blood Culture (Wb) - Port Blood Culture - Final No growth in 5 days. 05/20/22 17:40 Sputum, Induced/Lukens Gram Stain - Final 05/20/22 17:40 Sputum, Induced/Lukens Respiratory Culture - Final Escherichia coli 05/19/22 22:20 Transtracheal Aspirate Gram Stain - Final 05/19/22 22:20 Transtracheal Aspirate Respiratory Culture - Final Escherichia coli 05/20/22 04:25 Urine Catheter - Knight Urine Culture - Final Culture exhibits no growth. 05/20/22 04:25 Urine Catheter - Knight Legionella Antigen - Final 05/20/22 04:25 Urine Catheter - Knight Streptococcus pneumoniae Antigen (M - Final 05/19/22 22:20 Mucosa - Nasopharyngeal Respiratory Panel (PCR) - Final Radiography Diagnostic Testing: Radiology Impression KUB X-Ray 06/16/22 14:55 IMPRESSION: 1. Gastrostomy tube not previously noted. 2. Paucity of bowel gas without obstruction. 3. No other major interval change. Electronically Signed: All Lester DO at 16:28 EDT Reading Location ID and State: [address] [place] [address] Tel [phone], Service support , Rhythm Strip Rhythm Strip: A flutter Rate: 116 Ectopy: None Physical Exam Const alert and no apparent distress Constitutional Narrative: Remains mechanically ventilated. General Appearance: cooperative HEENT normocephalic and head/scalp atraumatic Eyes PERRL and EOMs intact bilaterally Neck supple Neck Narrative: Stable tracheostomy site. General: trachea midline Chest inspection of chest normal Resp normal respiratory effort Auscultation: diminished lung sounds Cardio S1 normal heart sound and S2 normal heart sound Rate: tachycardic Rhythm: abnormal rhythm GI normal to inspection, nondistended, normoactive bowel sounds Inspection: GI tube present Extremity Extremity Narrative: Left AKA Skin General Skin Exam: venous stasis and dermatitis Neuro moves all extremities and no focal motor deficits Charges/Coding Visit Charges Inpatient E&M: 66396 Subs Hosp L3
[2022-06-18 06:10] LABS: Differential Comment SCANNED
[2022-06-18 06:55] LABS: Bedside Glucose 189 mg/dL (74-106)
[2022-06-18] MEDS: Ciprofloxacin 400 MG/200 ML BAG 200 MG IV ×2 (09:13→21:30)
[2022-06-18] MEDS: Potassium Chloride Oral Soln 20 MEQ/15 ML UDC 40 MEQ GT (09:15)
[2022-06-18] MEDS: Lansoprazole 15 MG Capsule.DR 30 MG NG (09:17)
[2022-06-18] MEDS: Aspirin 81 MG TAB.CHEW NG (09:18)
[2022-06-18] MEDS: Juven (unflavored) Packet 1 PACKET GT ×2 (09:18→16:57)
[2022-06-18] MEDS: Linezolid 600 MG Tablet GT ×2 (09:18→21:29)
[2022-06-18] MEDS: Menthol/Lanolin/Calamine/Znox 113 GM Tube 1 APPLIC TOPICAL ×2 (09:18→21:30)
[2022-06-18] MEDS: Metoprolol Tartrate 25 MG Tablet 12.5 MG NG ×2 (09:18→18:27)
[2022-06-18] MEDS: Amiodarone 200 MG Tablet NG ×2 (09:18→21:29)
[2022-06-18] MEDS: Chlorhexidine 15 ML PO ×2 (09:19→21:31)
[2022-06-18] MEDS: Furosemide 10 MG/ML Liquid 20 MG GT ×2 (09:19→16:58)
[2022-06-18] MEDS: CHLORHEXIDINE GLUC 2% CLOTH 1 EACH TOWELETTE TOPICAL (11:53)
--- NOTE | 2022-06-18 12:25 | PN_ITS ---
Subjective Subjective Patient seen and examined. She was resting calmly. She has been tachycardic. SHe has been tachycardic. Objective Data Objective Data Vital Signs: Vital Signs Temp Pulse Resp BP Pulse Ox O2 Del Method O2 Flow Rate 98.5 F 130 H 22 H 114/76 100 Mechanical Ventilator 30 06/18/22 08:00 06/18/22 12:00 06/18/22 12:00 06/18/22 11:00 06/18/22 11:34 06/18/22 11:00 06/16/22 14:00 FiO2 30 06/18/22 11:34 Oxygen Flow Rate (L/min) 30 Oxygen Delivery Method Mechanical Ventilator Weight: 223 lb 5.252 oz Body Mass Index (BMI) 37.2 Intake & Output: Intake and Output for Last 24 Hours 06/16/22 06/17/22 06/18/22 23:59 23:59 23:59 Intake Total 1553.25 / 1553.25 800 / 800 200 / 200 Output Total 450 / 625 675 / 875 450 / 450 Balance 1103.25 / 928.25 125 / -75 -250 / -250 Lab / Micro Data Result Diagrams: 06/18/22 04:15 06/18/22 04:15 Labs: Laboratory Results - last 24 hr 06/17/22 17:10: POC Glucose 164 H 06/17/22 23:54: POC Glucose 182 H 06/18/22 04:15: WBC 12.2 H, RBC 2.73 L, Hgb 8.1 L, Hct 26.1 L, MCV 95.6, MCH 29.7, MCHC 31.0 L, RDW Std Deviation 61.2 H, RDW Coeff of Magen 17.7 H, Plt Count 159, MPV 10.5, Immature Gran % (Auto) 0.700, Neut % (Auto) 90.8 H, Lymph % (Auto) 4.2 L, [place] % (Auto) 4.0, Eos % (Auto) 0.1, Baso % (Auto) 0.2, Absolute Neuts (auto) 11.1 H, Absolute Lymphs (auto) 0.51 L, Nucleated RBC % 0, Differential Comment SCANNED 06/18/22 04:15: Sodium 140, Potassium 3.4 L, Chloride 114 H, Carbon Dioxide 19.0 L, Anion Gap 7, BUN 41 H, Creatinine 1.24 H, Estim Creat Clear Calc 38.54, Est GFR (MDRD) Af Amer 56 L, Est GFR (MDRD) Non-Af 46 L, BUN/Creatinine Ratio 33.1 H , Glucose 218 H, Calcium 8.6 06/18/22 05:48: POC Glucose 189 H Micro: Microbiology 06/04/22 22:25 Blood Culture (Wb) - Arm Left Blood Culture - Final No growth in 5 days. 06/04/22 18:30 Blood Culture (Wb) - Pic Blood Culture - Final No growth in 5 days. 06/05/22 03:52 Wound - Leg, Left Gram Stain - Final 06/05/22 03:52 Wound - Leg, Left Wound Culture - Final Staphylococcus haemolyticus Vancomycin Resist. E. faecium 06/04/22 13:05 Sputum, Induced/Lukens Gram Stain - Final 06/04/22 13:05 Sputum, Induced/Lukens Respiratory Culture - Final Staphylococcus haemolyticus Pseudomonas aeruginosa 06/04/22 20:00 Urine Catheter - Catheter Urine Culture - Final Culture exhibits no growth. 06/05/22 16:40 Stool C. difficile GDH Antigen & Toxins - Final 06/05/22 16:40 Stool C. difficile DNA Amplification - Final 05/28/22 11:30 Suture Gram Stain - Final 05/28/22 11:30 Suture Wound Culture - Final Vancomycin Resist. E. faecium Staphylococcus haemolyticus 05/24/22 06:35 Wound - Arm Left Gram Stain - Final 05/24/22 06:35 Wound - Arm Left Wound Culture - Final Pseudomonas aeruginosa Staphylococcus haemolyticus Staphylococcus epidermidis 05/24/22 06:35 Wound - Arm Left Anaerobic Culture - Final No anaerobic bacteria isolated. 05/19/22 14:30 Blood Culture (Wb) - Port Blood Culture - Final No growth in 5 days. 05/19/22 13:45 Blood Culture (Wb) - Port Blood Culture - Final No growth in 5 days. 05/20/22 17:40 Sputum, Induced/Lukens Gram Stain - Final 05/20/22 17:40 Sputum, Induced/Lukens Respiratory Culture - Final Escherichia coli 05/19/22 22:20 Transtracheal Aspirate Gram Stain - Final 05/19/22 22:20 Transtracheal Aspirate Respiratory Culture - Final Escherichia coli 05/20/22 04:25 Urine Catheter - Knight Urine Culture - Final Culture exhibits no growth. 05/20/22 04:25 Urine Catheter - Knight Legionella Antigen - Final 05/20/22 04:25 Urine Catheter - Knight Streptococcus pneumoniae Antigen (M - Final 05/19/22 22:20 Mucosa - Nasopharyngeal Respiratory Panel (PCR) - Final Rhythm Strip Rhythm Strip: A flutter Rate: 116 Ectopy: None Physical Exam Const Constitutional Narrative: on the ventilator via tracheostomy Orientation / Consciousness: lethargic HEENT normocephalic, head/scalp atraumatic and moist oral mucous membranes Eyes PERRL and EOMs intact bilaterally Neck no lymphadenopathy, supple and no JVD Lymph Lymphatic: no lymphadenopathy noted and no lymphedema noted Resp Resp Narrative: on ventilator via tracheostomy. diminished breath souns bibawally, no wheezes or crackles. Cardio regular rhythm, S1 normal heart sound, S2 normal heart sound and no murmurs Cardio Narrative: tachycardic GI normal to inspection, nondistended, normoactive bowel sounds, soft to palpation, non-tender and non-distended Extremity normal capillary refill, no clubbing, cyanosis or edema and no calf tenderness Extremity Narrative: Left AKA stump with dressing bandage. Right lower extremity edema is resolving Skin Skin Narrative: left AKA, intact stump General Skin Exam: no breakdown Neuro CN's II-XII intact bilaterally, no focal motor deficits, no sensory deficits noted and deep tendon reflexes 2+ bilaterally Neuro Narrative: on ventilator via tracheostomy. lethargic Psych Psych Narrative: lethargic Assessment & Plan Assessment/Plan (1) Acute on chronic respiratory failure with hypoxia and hypercapnia: (2) Septic shock: (3) Atrial fibrillation with rapid ventricular response: PLAN: Plan #Acute hypoxic respiratory failure due to HFpEF and E coli pneumonia * Was intubated at the start of her stay also been admitted for E. coli pneumonia. She completed a course of meropenem was placed on Lasix and subsequently sent to the floor. However hospital course was complicated by worsening respiratory status so she was sent back to the ICU on 06/04/2022 and intubated again. * She is on the vent via the trach. * was on IV vancomycin. Sputum cultures grew staph hemolyticus sensitive to vancomycin. ID on board. She is now on IV ciprofloxacin and linezolid * Now on IV Cipro. Will also need PEG tube placement. * Breathing treatments with bronchodilators. Titrate oxygen to maintain saturation above 90%. * has had tracheostomy done * remains on ventilator via trach. #Hypernatremia: Resolved #Left lower extremity wound infection * Status post left AKA in the left AKA stump was having some discharge. Wound cultures grew staph hemolyticus and Enterococcus vacation. * Remains on IV ciprofloxacin. ID on board. ALso on linezolid * wbc has risen sharply to 27 today. If wbc continues to trend upwards, will get repeat blood and urine cultures and get a CXR to evaluate for ventilator associated pneumonia. * #A-fib: * On p.o. amiodarone. Still tachycardic. * metoprolol resumed today. * IV lopressor prn * #Anemia * Hb is 8.1 today. Hb has been betwee 7-9 since admission * transfuse if Hb <7 * will monitor. stop heparin if anemia worsens * #Hypokalemia:potassium is 3.4 today. Will replace and trend. #MIKE on CKD: resolved. #Type 2 diabetes mellitus: On insulin sliding scale.? 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 Intact dressing over stump. Will monitor #Hypothyroidism;on synthroid.? #CAD s/p stent: On aspirin and statin #Dysphagia: * s/p PEG tube insertion * DVT prophylaxis: On heparin Total time spent on evaluation and management of patient, reviewing chart and specialist notes, discussion with nursing and ancillary staff as well as documentation: 41 mins Disposition: Awaiting placement in LTAC Charges/Coding Visit Charges Inpatient E&M: 58291 Subs Hosp L2
[2022-06-18 12:45] LABS: Bedside Glucose 197 mg/dL (74-106)
[2022-06-18 18:51] LABS: Bedside Glucose 200 mg/dL (74-106)
[2022-06-18] MEDS: dilTIAZem 60 MG Tablet GT (20:34)
[2022-06-19] VITALS (21 sets, daily range): BP systolic 92–120; BP diastolic 55–89; PULSE 123–137; RESP 12–36; TEMP 36.4–36.8; O2SAT 94–100; BMI 37.8
[2022-06-19] MEDS: Metoclopramide 10 MG/2 ML Vial 5 MG IV ×2 (00:04→05:14)
[2022-06-19] MEDS: dilTIAZem 60 MG Tablet GT ×2 (00:04→05:15)
[2022-06-19] MEDS: Insulin Lispro 100 UNIT/ML INSULN.PEN SC ×2 (00:04→05:14)
[2022-06-19 00:25] LABS: Bedside Glucose 171 mg/dL (74-106)
[2022-06-19] MEDS: Ipratropium 0.5 MG/2.5 ML SOLUTION INHALATION ×2 (01:47→06:56)
[2022-06-19 03:59] LABS: Absolute Lymphocyte Count 0.86 X10^3/uL (0.83-4.51); Absolute Neutrophil Count 8.8 X10^3/uL (2.0-7.7); Basophil# 0.01 X10^3/uL; Basophil% 0.1 % (0-1); Eosinophil# 0.16 X10^3/uL; Eosinophils% 1.5 % (0-5); Hematocrit 24.5 % (37-47); Hemoglobin 7.6 g/dL (12.0-15.0); Lymphocyte # 0.86 X10^3/ul (0.83-4.51); Lymphocyte % 8.2 % (19-41); Mean Corpuscular Hgb 29.3 pg (27.0-32.0); Mean Corpuscular Volume 94.6 fL (81-99); Mean Platelet Vol. 10.5 fl (6.2-12.0); Monocyte# 0.58 X10^3/uL; Monocyte% 5.5 % (0-10); NRBC Flagged by Analyzer 0 % (0-5); Neutrophil % 84.1 % (47-70); Platelet Count 154 K/mm3 (150-450); RBC Distribution Width CV 17.5 % (11.6-14.6); RBC Distribution Width SD 59.7 fl (35.1-43.9); Red Blood Count 2.59 M/mm3 (4.2-5.4); White Blood Count 10.5 K/mm3 (4.4-11.0)
[2022-06-19 04:13] LABS: Anion Gap 5 (5-15); BUN 46 mg/dL (7-18); BUN/Creat Ratio 36.8 RATIO (10-20); Calcium,Total 8.8 mg/dL (8.5-10.1); Chloride 112 mmol/L (98-107); Creatinine, Serum 1.25 mg/dL (0.55-1.02); EST Glomerular Filtration Rate 46 mL/min (>60); Est Glom Filt Rate - Afr Amer 55 mL/min (>60); Estimated Creatinine Clearance 38.23 ml/min; Glucose 198 mg/dL (74-106); Potassium 3.6 mmol/L (3.5-5.1); Sodium Level 138 mmol/L (136-145)
[2022-06-19] MEDS: Levothyroxine 125 MCG Tablet GT (05:08)
[2022-06-19] MEDS: Heparin Injection (Vial) 5,000 UNIT/ML VIAL 5000 UNIT SC (05:15)
--- NOTE | 2022-06-19 06:40 | PN.HOSP_ITS ---
Reason for Visit Reason for Visit: Diagnoses Sepsis, unspecified organism (05/19/22) Anemia, unspecified (05/19/22) Thrombocytopenia, unspecified (05/19/22) Type 2 diabetes mellitus with foot ulcer (05/19/22) Other toxic encephalopathy (05/19/22) Encephalopathy, unspecified (05/19/22) Unspecified atrial fibrillation (05/19/22) Pneumonia, unspecified organism (05/19/22) Chronic obstructive pulmonary disease with (acute) exacerbation (05/19/22) Acute and chronic respiratory failure with hypoxia (05/19/22) Acute and chronic respiratory failure with hypercapnia (05/19/22) Non-pressure chronic ulcer of other part of unspecified foot with unspecified severity (05/19/22) Acute kidney failure, unspecified (05/19/22) Generalized edema (05/19/22) Severe sepsis without septic shock (05/19/22) Severe sepsis with septic shock (05/19/22) Bacteremia (05/19/22) Dependence on respirator [ventilator] status (05/19/22) Objective Data Objective Data Vital Signs: Vital Signs Temp Pulse Resp BP Pulse Ox O2 Del Method O2 Flow Rate 98.1 F 135 H 20 H 106/59 L 95 Mechanical Ventilator 30 06/19/22 02:00 06/19/22 06:00 06/19/22 06:00 06/19/22 06:00 06/19/22 06:00 06/19/22 06:00 06/16/22 14:00 FiO2 30 06/19/22 06:00 Oxygen Flow Rate (L/min) 30 Oxygen Delivery Method Mechanical Ventilator Weight: 102.9 kg Body Mass Index (BMI) 37.8 Intake & Output: Intake and Output for Last 24 Hours 06/17/22 06/18/22 06/19/22 23:59 23:59 23:59 Intake Total 800 / 800 500 / 500 400 / 400 Output Total 675 / 875 700 / 850 400 / 400 Balance 125 / -75 -200 / -350 0 / 0 Lab / Micro Data Result Diagrams: 06/19/22 03:50 06/19/22 03:50 Labs: Laboratory Results - last 24 hr 06/18/22 05:48: POC Glucose 189 H 06/18/22 11:51: POC Glucose 197 H 06/18/22 16:57: POC Glucose 200 H 06/19/22 00:01: POC Glucose 171 H 06/19/22 03:50: WBC 10.5, RBC 2.59 L, Hgb 7.6 L, Hct 24.5 L, MCV 94.6, MCH 29.3, MCHC 31.0 L, RDW Std Deviation 59.7 H, RDW Coeff of Magen 17.5 H, Plt Count 154, MPV 10.5, Immature Gran % (Auto) 0.600, Neut % (Auto) 84.1 H, Lymph % (Auto) 8.2 L, [place] % (Auto) 5.5, Eos % (Auto) 1.5, Baso % (Auto) 0.1, Absolute Neuts ( auto) 8.8 H, Absolute Lymphs (auto) 0.86, Nucleated RBC % 0 06/19/22 03:50: Sodium 138, Potassium 3.6, Chloride 112 H, Carbon Dioxide 21.0, Anion Gap 5, BUN 46 H, Creatinine 1.25 H, Estim Creat Clear Calc 38.23, Est GFR (MDRD) Af Amer 55 L, Est GFR (MDRD) Non-Af 46 L, BUN/Creatinine Ratio 36.8 H, Glucose 198 H, Calcium 8.8 Micro: Microbiology 06/04/22 22:25 Blood Culture (Wb) - Arm Left Blood Culture - Final No growth in 5 days. 06/04/22 18:30 Blood Culture (Wb) - Pic Blood Culture - Final No growth in 5 days. 06/05/22 03:52 Wound - Leg, Left Gram Stain - Final 06/05/22 03:52 Wound - Leg, Left Wound Culture - Final Staphylococcus haemolyticus Vancomycin Resist. E. faecium 06/04/22 13:05 Sputum, Induced/Lukens Gram Stain - Final 06/04/22 13:05 Sputum, Induced/Lukens Respiratory Culture - Final Staphylococcus haemolyticus Pseudomonas aeruginosa 06/04/22 20:00 Urine Catheter - Catheter Urine Culture - Final Culture exhibits no growth. 06/05/22 16:40 Stool C. difficile GDH Antigen & Toxins - Final 06/05/22 16:40 Stool C. difficile DNA Amplification - Final 05/28/22 11:30 Suture Gram Stain - Final 05/28/22 11:30 Suture Wound Culture - Final Vancomycin Resist. E. faecium Staphylococcus haemolyticus 05/24/22 06:35 Wound - Arm Left Gram Stain - Final 05/24/22 06:35 Wound - Arm Left Wound Culture - Final Pseudomonas aeruginosa Staphylococcus haemolyticus Staphylococcus epidermidis 05/24/22 06:35 Wound - Arm Left Anaerobic Culture - Final No anaerobic bacteria isolated. 05/19/22 14:30 Blood Culture (Wb) - Port Blood Culture - Final No growth in 5 days. 05/19/22 13:45 Blood Culture (Wb) - Port Blood Culture - Final No growth in 5 days. 05/20/22 17:40 Sputum, Induced/Lukens Gram Stain - Final 05/20/22 17:40 Sputum, Induced/Lukens Respiratory Culture - Final Escherichia coli 05/19/22 22:20 Transtracheal Aspirate Gram Stain - Final 05/19/22 22:20 Transtracheal Aspirate Respiratory Culture - Final Escherichia coli 05/20/22 04:25 Urine Catheter - Knight Urine Culture - Final Culture exhibits no growth. 05/20/22 04:25 Urine Catheter - Knight Legionella Antigen - Final 05/20/22 04:25 Urine Catheter - Knight Streptococcus pneumoniae Antigen (M - Final 05/19/22 22:20 Mucosa - Nasopharyngeal Respiratory Panel (PCR) - Final Rhythm Strip Rhythm Strip: A flutter Rate: 116 Ectopy: None
--- NOTE | 2022-06-19 07:10 | PN.CC_ITS ---
Assessment & Plan Assessment/Plan (1) Septic shock: PLAN: Plan RECOMMENDATIONS: 1. Continue to wean FiO2 to maintain saturations at or above 90%. 2. Antimicrobials per ID recommendations. 3. Continue diuresis as tolerated by hemodynamics and renal function. 4. Hold tube feeds for now and continue Reglan as ordered. Order KUB 5. Uptitrate beta-skyler 6. Continue appropriate ICU prophylaxis. 7. Disposition planning per case management. IMPRESSIONS: 1. Septic shock Resolved. Multiple sources of infection have been identified during this hospitalization, including ESBL E. coli pneumonia and wound VRE. The patient remains hemodynamically stable off of vasopressor support. Antibiotics are being continued per ID recommendations. 2. Encephalopathy Improved. Most likely related to acute CO2 retention. It is unclear as to whether the patient had access to a BiPAP at her nursing facility and whether or not it was being utilized previously. The patient continues to fail to use BiPAP following extubation in the hospital. Failure to use BiPAP as lead to recurrent metabolic encephalopathy secondary to elevated CO2 levels. Therefore, the patient ultimately underwent successful tracheostomy and PEG tube placement. Mentation has been doing well with mechanical ventilation. 3. Acute on chronic combined respiratory failure The patient did grow ESBL E. coli in her sputum indicating pneumonia on presentation as an etiology of her initial respiratory failure. The patient has had multiple hospitalizations related to respiratory failure in the setting of noncompliance with PAP therapy, which ultimately leads to CO2 narcosis and the need for intubation. In light of these repeated episodes, the patient underwent tracheostomy and PEG tube placement. Patient with minimal oxygen demands, but not tolerating trials well. 4. Acute on chronic kidney disease Stable. Most likely prerenal in etiology in the setting of #1. Creatinine has worsened recently, likely secondary to decreased perfusion with acidosis. We will plan to continue to monitor urine output for now. No current indication for renal replacement therapy. 5. 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 Continue to monitor H&H daily. Transfuse if hemoglobin drops below 7 g/dL. Continue PPI therapy as ordered. The patient likely has an underlying ileus. Therefore tube feeds will remain on hold today and Reglan will be continued. We will check a KUB Subjective Subjective Patient did okay overnight. Patient has been tachycardic, but there is been no change in temperature or secretions. Patient is appropriate and follows commands. No bleeding has been reported. Patient has had some increased residuals reported. Objective Data Objective Data Vital Signs: Vital Signs Temp Pulse Resp BP Pulse Ox O2 Del Method O2 Flow Rate 36.7 C 135 H 20 H 105/61 95 Mechanical Ventilator 30 06/19/22 02:00 06/19/22 07:00 06/19/22 07:00 06/19/22 07:00 06/19/22 07:00 06/19/22 07:00 06/16/22 14:00 FiO2 30 06/19/22 06:58 Oxygen Flow Rate (L/min) 30 Oxygen Delivery Method Mechanical Ventilator Weight: 102.9 kg Body Mass Index (BMI) 37.8 Intake & Output: Intake and Output for Last 24 Hours 06/17/22 06/18/22 06/19/22 23:59 23:59 23:59 Intake Total 800 / 800 500 / 500 400 / 400 Output Total 675 / 875 700 / 850 400 / 400 Balance 125 / -75 -200 / -350 0 / 0 Lab / Micro Data Attestation: I reviewed the patient's lab results. Result Diagrams: 06/19/22 03:50 06/19/22 03:50 Labs: Laboratory Results - last 24 hr 06/18/22 11:51: POC Glucose 197 H 06/18/22 16:57: POC Glucose 200 H 06/19/22 00:01: POC Glucose 171 H 06/19/22 03:50: WBC 10.5, RBC 2.59 L, Hgb 7.6 L, Hct 24.5 L, MCV 94.6, MCH 29.3, MCHC 31.0 L, RDW Std Deviation 59.7 H, RDW Coeff of Magen 17.5 H, Plt Count 154, MPV 10.5, Immature Gran % (Auto) 0.600, Neut % (Auto) 84.1 H, Lymph % (Auto) 8.2 L, [place] % (Auto) 5.5, Eos % (Auto) 1.5, Baso % (Auto) 0.1, Absolute Neuts (auto) 8.8 H, Absolute Lymphs (auto) 0.86, Nucleated RBC % 0 06/19/22 03:50: Sodium 138, Potassium 3.6, Chloride 112 H, Carbon Dioxide 21.0, Anion Gap 5, BUN 46 H, Creatinine 1.25 H, Estim Creat Clear Calc 38.23, Est GFR (MDRD) Af Amer 55 L, Est GFR (MDRD) Non-Af 46 L, BUN/Creatinine Ratio 36.8 H, Glucose 198 H, Calcium 8.8 Micro: Microbiology 06/04/22 22:25 Blood Culture (Wb) - Arm Left Blood Culture - Final No growth in 5 days. 06/04/22 18:30 Blood Culture (Wb) - Pic Blood Culture - Final No growth in 5 days. 06/05/22 03:52 Wound - Leg, Left Gram Stain - Final 06/05/22 03:52 Wound - Leg, Left Wound Culture - Final Staphylococcus haemolyticus Vancomycin Resist. E. faecium 06/04/22 13:05 Sputum, Induced/Lukens Gram Stain - Final 06/04/22 13:05 Sputum, Induced/Lukens Respiratory Culture - Final Staphylococcus haemolyticus Pseudomonas aeruginosa 06/04/22 20:00 Urine Catheter - Catheter Urine Culture - Final Culture exhibits no growth. 06/05/22 16:40 Stool C. difficile GDH Antigen & Toxins - Final 06/05/22 16:40 Stool C. difficile DNA Amplification - Final 05/28/22 11:30 Suture Gram Stain - Final 05/28/22 11:30 Suture Wound Culture - Final Vancomycin Resist. E. faecium Staphylococcus haemolyticus 05/24/22 06:35 Wound - Arm Left Gram Stain - Final 05/24/22 06:35 Wound - Arm Left Wound Culture - Final Pseudomonas aeruginosa Staphylococcus haemolyticus Staphylococcus epidermidis 05/24/22 06:35 Wound - Arm Left Anaerobic Culture - Final No anaerobic bacteria isolated. 05/19/22 14:30 Blood Culture (Wb) - Port Blood Culture - Final No growth in 5 days. 05/19/22 13:45 Blood Culture (Wb) - Port Blood Culture - Final No growth in 5 days. 05/20/22 17:40 Sputum, Induced/Lukens Gram Stain - Final 05/20/22 17:40 Sputum, Induced/Lukens Respiratory Culture - Final Escherichia coli 05/19/22 22:20 Transtracheal Aspirate Gram Stain - Final 05/19/22 22:20 Transtracheal Aspirate Respiratory Culture - Final Escherichia coli 05/20/22 04:25 Urine Catheter - Knight Urine Culture - Final Culture exhibits no growth. 05/20/22 04:25 Urine Catheter - Knight Legionella Antigen - Final 05/20/22 04:25 Urine Catheter - Knight Streptococcus pneumoniae Antigen (M - Final 05/19/22 22:20 Mucosa - Nasopharyngeal Respiratory Panel (PCR) - Final Rhythm Strip Rhythm Strip: A flutter Rate: 132 Ectopy: None Physical Exam Const alert and no apparent distress Constitutional Narrative: Remains mechanically ventilated. Good vent synchrony. RASS 0. General Appearance: cooperative HEENT normocephalic and head/scalp atraumatic Eyes PERRL and EOMs intact bilaterally Neck supple Neck Narrative: Stable tracheostomy site. General: trachea midline Chest inspection of chest normal Resp normal respiratory effort Auscultation: diminished lung sounds Cardio S1 normal heart sound and S2 normal heart sound Rate: tachycardic Rhythm: abnormal rhythm GI normal to inspection, nondistended, normoactive bowel sounds Inspection: GI tube present Extremity Extremity Narrative: Left AKA Skin General Skin Exam: venous stasis and dermatitis Neuro moves all extremities and no focal motor deficits Charges/Coding Visit Charges Inpatient E&M: 31215 Subs Hosp L3
[2022-06-19] MEDS: Ciprofloxacin 400 MG/200 ML BAG 200 MG IV (09:29)
[2022-06-19] MEDS: Aspirin 81 MG TAB.CHEW NG (09:30)
[2022-06-19] MEDS: Juven (unflavored) Packet 1 PACKET GT (09:30)
[2022-06-19] MEDS: Amiodarone 200 MG Tablet NG (09:31)
[2022-06-19] MEDS: Senna/Docusate Sodium 1 Tablet 2 TABLET NG (09:32)
[2022-06-19] MEDS: Metoprolol Tartrate 25 MG Tablet NG (09:32)
[2022-06-19] MEDS: Linezolid 600 MG Tablet GT (09:32)
--- NOTE | 2022-06-19 09:33 | CASEMGMT ---
Addendum entered by Erin Galo 06/19/22 10:04: Provided ICU laboratory secretary with ambulance transport form, she notified nurse to call to give report. Spoke with hospitalist who will complete dc paperwork. Pt is set to be picked up at 11am. Original Note: TC tray Garcia at [facility], pt has been approved. Team made aware in rounds. Accepting physician is Dr. Perkins. Spoke with laboratory secretary who will arrange transport. Phone for report is [phone] and they prefer report 2 hours within arrive. Fax for orders is [phone].
[2022-06-19] MEDS: Lansoprazole 15 MG Capsule.DR 30 MG NG (09:40)
[2022-06-19] MEDS: Chlorhexidine 15 ML PO (09:40)
[2022-06-19] MEDS: Potassium Chloride Oral Soln 20 MEQ/15 ML UDC 40 MEQ GT (09:40)
--- NOTE | 2022-06-19 09:59 | WOUNDNOTE ---
wound photo: right heel
--- NOTE | 2022-06-19 10:00 | WOUNDNOTE ---
wound photo: left stump
--- NOTE | 2022-06-19 10:02 | TREXTCAR_ITS ---
Diet Diet Order/Speech Therapy: 05/28/22 13:32 NPO [Diet: Nothing Per Oral] Is pt able to select menu?: Yes Tube Feed: Vital AF 1.2 Mj Liquid 55mls/hr GT w/ 100mL H2O flush every 4 hours Routine Orders/Code Status Suppository Type: Dulcolax 10mg Suppository Frequency: Daily PRN Knight Catheter Size: 16 Change Knight Catheter: Knight placed 06/04/2022 O2 Frequency: AC:Vol trigger RR 12: TV 450: Peak flow 60: Sensitivity 4: FIO2 30%; Peep 5 Keep PO Greater than or Equal to (%): 92 Code Status: Full Code Wound(s) Coccyx: Wound Type: Pressure Injury LLE: Wound Type: Surgical Incision L AC: Wound Type: open wound (unknown etiology) Dressing Change: dry dressing left stump: Wound Type: dehisced surgical incision s/p L AKA Dressing Change: Wet to Dry Dressing right heel: Wound Type: Pressure Injury Dressing Change: well padded dressing RLQ abd: Wound Type: blister under abdomen: Wound Type: Skin Tear left upper post arm: Wound Type: Abrasion lt ear lobe: Wound Type: Pressure Injury throat: Wound Type: Surgical Incision under right breast: Wound Type: Skin Tear Suggestions for Active Care Change Position every (hours): 2 Therapies Physical Therapy: Eval and Treat Occupational Therapy: Eval and Treat Speech Therapy: Eval and Treat Problem/Diagnosis (1) Septic shock: Status: Acute Code(s): A41.9 - Sepsis, unspecified organism; R65.21 - Severe sepsis with septic shock Plan 67F w/ hx of HFpEF, pulm HTN, hypothyroidism, COPD, SILVER, CKD stage IIIb, afib, CAD status post previous stenting, chronic anemia, Dry gangrene of LLE s/p recent AKA, DMII presented to [facility] 05/19/22 from SNF w/ SOB and hypotention. She had a prolonged and complicated hospital course and initially was found to have septic shock 2/2 ESBL ecoli pneumonia and required intubation and levophed. Infectious disease has been consulted and she improved with meropenem. She initially was difficult to wean from ventilator however ultimately she passed a spontaneous breathing trial and was extubated 05/28/2022. She was found to have an infection of her left arm that grew Pseudomonas, staph hemolyticus, Staph epidermidis and this was treated with vancomycin and meropenem. She was transferred to the floor as she continued to improve and was on 4 L of O2 however became more weak and confused. On 06/04 she had increasing O2 requirements and required reintubation and transferred to the ICU. Repeat cultures obtained and vancomycin was restarted as well as ID reconsulted for evaluation. Repeat respiratory culture grew staph hemolyticus and she had a leg wound that grew Staphylococcus hemolyticus and VRE. She was on Cipro and linezolid per ID recommendations and improved clinically however she continued to fail spontaneous breathing trials and ultimately family agreeable to tracheostomy and PEG. Trach placed 06/12/2022 and PEG placed 06/13/2022. Had been tolerating tube feeds but began having some high residuals Hospital course additionally complicated by MIKE on CKD stage IIIb which resolved with treatment of underlying medical problems. Also had chronic anemia and did require a transfusion that was not found to be bleeding anywhere and was felt to be due to her acute illness on chronic anemia and hemoglobin stabilized. here w/ acute on chronic combined resp failure/pulmHTN/HFpEF and septic heather 2/2 ESBL ecoli pna. Also has polymicrobial wound. s/p merrem and vanc. Difficult to wean but was extubated 05/28. Ultimately reintubated 06/04 d/t recurrent respiratory failure and sent back to ICU. Repeat resp cx staph hemolyticus, leg wound staph hemolyticus and VRE. ID panaging. cipro and linezolid. Trach and PEG this week #Septick shock 2/2 ESBL ecoli pna-resolved. 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 #Coronary artery disease status post previous stenting #Hypothyroidism Allergies/Procedures Done in Hospital Allergies doxycycline Allergy (Verified 05/19/22 11:06) NEEDS FOLLOW-UP latex Allergy (Verified 05/19/22 11:06) NEEDS FOLLOW-UP Sulfa (Sulfonamide Antibiotics) Allergy (Verified 05/19/22 11:06) Anaphylaxis sulfur dioxide Allergy (Verified 05/19/22 11:06) Anaphylaxis oxycodone Adverse Reaction (Verified 05/19/22 11:06) Other makes me crazy Type of Care/Length of Stay Estimated LOS: More Than 30 Days Type of Care Needed: Skilled Rehab Potential: Fair Prognosis: Fair Dietary and Speech Recommendations Dietitian Recommendations/Changes: NPO; Would recommend resuming Vital AF 1.2 via PEG at 15mL/hour when cleared by intensivisit and increase by 10mL every 8- 12 hours as tolerated until goal rate of 55mL/hour is achieved. 100mL H2O flush every 4 hours to provide 1584 calories, 99 g protein, and 1670mL total fluid/day at goal rate. Discharge Plan Admission Admit Date/Time: 05/19/22 14:33 Attending Provider: Coco Romero Primary Care Provider: Geovanna Mott [facility] Consulting Providers: Price Brower ; Lalo Cooper ; Quynh Aldrich ; Coco Romero ; Nagi Ayala ; Alejandro Mosher ; Santos Mcwilliams ; Esdras Esparza ; Nestor Beasley ; Linette Gage NP ; Ronni Goins ; Torrey Mccrary Discharge Orders/Prescriptions Prescriptions: No Action aspirin [Adult Aspirin Regimen] 81 mg tablet,delayed release (DR/EC) 81 mg PO DAILY sennosides-docusate sodium [Senna-S] 8.6-50 mg Tablet 1 tab PO BID levothyroxine [Synthroid] 100 mcg tablet 125 mcg PO DAILY trazodone 100 mg tablet 150 mg PO QHS montelukast 10 mg tablet 10 mg PO QHS albuterol sulfate 90 mcg/actuation HFA aerosol inhaler 2 puff INHALATION Q6H PRN (Reason: Shortness Of Breath) omeprazole 40 mg Capsule,Delayed Release(Dr/Ec) 40 mg PO BID polyethylene glycol 3350 17 gram powder in packet 17 g PO DAILY ferrous sulfate [FeroSul] 325 mg (65 mg iron) tablet 325 mg PO DAILY nystatin [Nyamyc] 100,000 unit/gram powder 1 applic topical TID Protocol: *Topical Application Instructions APPLICATION INSTRUCTIONS: apply to groin tid for redness insulin lispro [Humalog KwikPen Insulin] 100 unit/mL insulin pen 10 unit subcut TIDAC paroxetine HCl [Paxil] 20 mg Tablet 20 mg PO DAILY Levemir FlexTouch U-100 Insuln 100 unit/mL (3 mL) insulin pen 25 unit SUBCUT QHS Qty: 15 0RF gabapentin 300 mg capsule 300 mg PO TID mirtazapine 15 mg tablet 15 mg PO QHS acetaminophen [Tylenol] 325 mg tablet 650 mg PO Q6H PRN (Reason: PAIN/FEVER) potassium chloride [Klor-Con M20] 20 mEq tablet,ER particles/crystals 20 meq PO TID Eliquis 5 mg tablet 5 mg PO BID Say (with collagen) 7-7-1.5 gram powder in packet 1 packet PO BID bumetanide 0.5 mg Tablet 1 mg PO TID Qty: 0 0RF diltiazem HCl 60 mg Tablet 60 mg PO Q6 Qty: 0 0RF metoprolol tartrate 25 mg Tablet 12.5 mg PO BID Qty: 0 0RF Referrals / Follow Up: Geovanna Mott [facility], [facility] [Primary Care Provider] - Disposition Disposition (needs filled in before D/C Order can be placed): DC/Tx to Another Type of HCF
--- NOTE | 2022-06-19 10:02 | PCM.TXEXTCAR ---
Diet Diet Order/Speech Therapy: 05/28/22 13:32 NPO [Diet: Nothing Per Oral] Is pt able to select menu?: Yes Tube Feed: titrate to: Vital AF 1.2 Mj Liquid 55mls/hr GT w/ 100mL H2O [id number] Routine Orders/Code Status Suppository Type: Dulcolax 10mg Suppository Frequency: Daily PRN Knight Catheter Size: 16 Change Knight Catheter: Knight placed 06/04/2022 O2 Frequency: AC:Vol trigger RR 12: TV 450: Peak flow 60: Sensitivity 4: FIO2 30%; Peep 5 Keep PO Greater than or Equal to (%): 92 Code Status: Full Code Wound(s) Coccyx: Wound Type: Pressure Injury LLE: Wound Type: Surgical Incision L AC: Wound Type: open wound (unknown etiology) Dressing Change: dry dressing left stump: Wound Type: dehisced surgical incision s/p L AKA Dressing Change: Wet to Dry Dressing right heel: Wound Type: Pressure Injury Dressing Change: well padded dressing RLQ abd: Wound Type: blister under abdomen: Wound Type: Skin Tear left upper post arm: Wound Type: Abrasion lt ear lobe: Wound Type: Pressure Injury throat: Wound Type: Surgical Incision under right breast: Wound Type: Skin Tear Suggestions for Active Care Change Position every (hours): 2 Therapies Physical Therapy: Eval and Treat Occupational Therapy: Eval and Treat Speech Therapy: Eval and Treat Problem/Diagnosis (1) Septic shock: Status: Acute Code(s): A41.9 - Sepsis, unspecified organism; R65.21 - Severe sepsis with septic shock Plan 67F w/ hx of HFpEF, pulm HTN, hypothyroidism, COPD, SILVER, CKD stage IIIb, afib, CAD status post previous stenting, chronic anemia, 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 She had a prolonged and complicated hospital course and initially was found to have septic shock 2/2 ESBL ecoli pneumonia and required intubation and levophed. Infectious disease has been consulted and she improved with meropenem. She initially was difficult to wean from ventilator however ultimately she passed a spontaneous breathing trial and was extubated 05/28/2022. She was found to have an infection of her left arm that grew Pseudomonas, staph hemolyticus, Staph epidermidis and this was treated with vancomycin and meropenem. She was transferred to the floor as she continued to improve and was on 4 L of O2 however became more weak and confused. On 06/04 she had increasing O2 requirements despite BiPAP and required reintubation and transferred to the ICU. Repeat cultures obtained and vancomycin was restarted as well as ID reconsulted for evaluation. Repeat respiratory culture grew staph hemolyticus and she had a leg wound that grew Staphylococcus hemolyticus and VRE. She was on Cipro and linezolid per ID recommendations and improved clinically and antibiotics stopped prior to discharge after verbally discussing with infectious disease. She continued to fail spontaneous breathing trials and ultimately family agreeable to tracheostomy and PEG. Trach placed 06/12/2022 and PEG placed 06/13/2022. Had been tolerating tube feeds but began having some elevated residuals. On day of transfer there was a concern about difficulty flushing the PEG however it was found to be kinked under distressing and was working well after that and her Reglan was increased to help with motility. Issue presently nonacute and tube feeds can continue to be titrated at [facility]. Hospital course additionally complicated by MIKE on CKD stage IIIb which resolved with treatment of underlying medical problems. Also atrial fibrillation which required IV Amio which was transitioned to amiodarone through the G-tube, metoprolol recently resumed and has been in the process of being titrated. Also had chronic anemia and did require a transfusion that was not found to be bleeding anywhere and was felt to be due to her acute illness on chronic anemia and hemoglobin stabilized. #Septick shock 2/2 ESBL ecoli pna-resolved. 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 #Coronary artery disease status post previous stenting #Hypothyroidism Allergies/Procedures Done in Hospital Allergies doxycycline Allergy (Verified 05/19/22 11:06) NEEDS FOLLOW-UP latex Allergy (Verified 05/19/22 11:06) NEEDS FOLLOW-UP Sulfa (Sulfonamide Antibiotics) Allergy (Verified 05/19/22 11:06) Anaphylaxis sulfur dioxide Allergy (Verified 05/19/22 11:06) Anaphylaxis oxycodone Adverse Reaction (Verified 05/19/22 11:06) Other makes me crazy Procedures: 2-D Echocardiogram (05/08/2022 EF 55% with small pericardial effusion, PASP 50 mmHg, 2+ tricuspid insufficiency), Peg tube placement, PICC line placement and - (06/01 modified barium swallow after first extubation when she failed. Brain murmur 05/12 with chronic changes. Head/neck CTA with stenosis of right carotid bulb and stenosis of right external carotid artery. Brain CT/13 negative for acute proc. Trach placement. Intubation x2) Type of Care/Length of Stay Estimated LOS: More Than 30 Days Type of Care Needed: LTAC Rehab Potential: Fair Prognosis: Fair Additional Orders/Day of Discharge Day of Discharge: 06/19/22 Dietary and Speech Recommendations Dietitian Recommendations/Changes: NPO; Would recommend resuming Vital AF 1.2 via PEG at 15mL/hour and increase by 10mL every 8-12 hours as tolerated until goal rate of 55mL/hour is achieved. 100mL H2O flush every 4 hours to provide 1584 calories, 99 g protein, and 1670mL total fluid/day at goal rate. Discharge Plan Admission Admit Date/Time: 05/19/22 14:33 Primary Reason for Your Visit: SOB and hypotension Attending Provider: Coco Romero Primary Care Provider: Geovanna Mott COOLING TOWER TECHNICIAN Consulting Providers: Price Brower ; Lalo Cooper ; Quynh Aldrich ; Coco Romero ; Nagi Ayala ; Alejandro Mosher ; Santos Mcwilliams ; Esdras Esparza ; Nestor Beasley ; Linette Gage COOLING TOWER TECHNICIAN ; Ronni Goins ; Torrey Mccrary Instructions Patient Instructions: Adjusting to Your Tracheostomy Tube Additional Instructions / Restrictions: -Recommend following up with vascular surgery on an outpatient basis due to right-sided carotid stenosis -Her Eliquis has been resumed on discharge given her improvement in platelets and stable hemoglobin. Recommend rechecking CBC in 2 to 3 days to evaluate hemoglobin and platelets -Recommend checking BMP in 2 to 3 days to check renal function -May need further up titration of beta-skyler -Has had increasing Reglan dosing to help with bowel motility and tube feed residuals. Would benefit from decreasing ultimate discontinuation once patient is able to tolerate this -Tube feed orders: Would recommend resuming Vital AF 1.2 via PEG at 15mL/hour and increase by 10mL every 8-12 hours as tolerated until goal rate of 55mL/hour is achieved. 100mL H2O flush every 4 hours to provide 1584 calories, 99 g protein, and 1670mL total fluid/day at goal rate. with Say 1 packet down G-tube twice daily -Tracheostomy: Size 6 mm. Ventilator mode: AC, ventilator mode type: VC. Heated circuit with humidity. Settings as followed: Respiratory rate: 12. Tidal volume 450. Peak flow (Vmax) 60. Sensitivity: 3. FiO2: 30%. PEEP: 5 cm of H2O. Trigger type: Volume -Knight catheter in place, routine Knight care. Knight catheter 16 Guine[place] placed 06/04/2022 -See additional wound care instructions and wounds noted -PT/OT/speech therapy recommended Discharge Orders/Prescriptions Prescriptions: New amiodarone 200 mg Tablet 200 mg NG BID 30 Days Qty: 0 0RF chlorhexidine gluconate 2 % Towelette 15 ml PO BID Qty: 0 0RF chlorhexidine gluconate 2 % Towelette 1 towel topical DAILY Qty: 0 0RF furosemide 10 mg/mL Solution 20 mg G-tube BIDLX 30 Days Qty: 0 0RF ipratropium bromide 0.02 % Solution 0.5 mg inhalation Q6H.RT 30 Days Qty: 0 0RF insulin lispro [Humalog KwikPen Insulin] 100 unit/mL Insulin Pen See Protocol subcut Q6 30 Days Qty: 0 0RF Protocol: 4. Sliding Scale Insulin High-Med Dosing Condition: 150-199 mg/dl = 2 units Condition: 200-259 mg/dl = 4 units Condition: 260-324 mg/dl = 6 units Condition: 325-374 mg/dl = 8 units Condition: 375-409 mg/dl = 10 units Condition: 410-449 mg/dl = 11 units Condition: Greater than 449 call physician Protocol Text: - Use for Total Daily Dose of Insulin 56-80 units - Patient who are insulin resistant or septic HIGH MEDIUM DOSING ALGORITHM Say (with collagen) 7-7-1.5 gram Powder In Packet 1 packet G-tube BIDCM Qty: 0 0RF lansoprazole 15 mg Capsule,Delayed Release(Dr/Ec) 30 mg feeding tube DAILY 30 Days Qty: 0 0RF metoclopramide HCl [Reglan] 10 mg tablet 10 mg PO Q6H Qty: 90 0RF Continued aspirin [Adult Aspirin Regimen] 81 mg tablet,delayed release (DR/EC) 81 mg PO DAILY levothyroxine [Synthroid] 100 mcg tablet 125 mcg PO DAILY albuterol sulfate 90 mcg/actuation HFA aerosol inhaler 2 puff INHALATION Q6H PRN (Reason: Shortness Of Breath) ferrous sulfate [FeroSul] 325 mg (65 mg iron) tablet 325 mg PO DAILY nystatin [Nyamyc] 100,000 unit/gram powder 1 applic topical TID Protocol: *Topical Application Instructions APPLICATION INSTRUCTIONS: apply to groin tid for redness Eliquis 5 mg tablet 5 mg PO BID Say (with collagen) 7-7-1.5 gram powder in packet 1 packet PO BID diltiazem HCl 60 mg Tablet 60 mg PO Q6 Qty: 0 0RF polyethylene glycol 3350 17 gram powder in packet 17 g PO DAILY Qty: 100 0RF Rx Instructions: Hold for diarrhea sennosides-docusate sodium [Senna-S] 8.6-50 mg Tablet 1 tab PO BID Qty: 60 0RF Rx Instructions: hold for diarrhea Changed potassium chloride [Klor-Con M20] 20 mEq tablet,ER particles/crystals 40 meq PO DAILY Qty: 30 0RF metoprolol tartrate 25 mg Tablet 25 mg PO BID Qty: 0 0RF Levemir FlexTouch U-100 Insuln 100 unit/mL (3 mL) insulin pen 15 unit SUBCUT DAILY Qty: 15 0RF Discontinued trazodone 100 mg tablet 150 mg PO QHS montelukast 10 mg tablet 10 mg PO QHS omeprazole 40 mg Capsule,Delayed Release(Dr/Ec) 40 mg PO BID insulin lispro [Humalog KwikPen Insulin] 100 unit/mL insulin pen 10 unit subcut TIDAC paroxetine HCl [Paxil] 20 mg Tablet 20 mg PO DAILY gabapentin 300 mg capsule 300 mg PO TID mirtazapine 15 mg tablet 15 mg PO QHS acetaminophen [Tylenol] 325 mg tablet 650 mg PO Q6H PRN (Reason: PAIN/FEVER) bumetanide 0.5 mg Tablet 1 mg PO TID Qty: 0 0RF Referrals / Follow Up: Geovanna Mott COOLING TOWER TECHNICIAN, COOLING TOWER TECHNICIAN-C [Primary Care Provider] - Disposition Disposition (needs filled in before D/C Order can be placed): Carpenter Supervisor Acute Care
[2022-06-19] MEDS: Furosemide 10 MG/ML Liquid 20 MG GT (10:03)
[2022-06-19] MEDS: Insulin Glargine-YFGN 100 UNIT/ML Pen 15 UNIT SC (10:13)
[2022-06-19 10:35] LABS: Bedside Glucose 167 mg/dL (74-106)
--- NOTE | 2022-06-19 11:08 | PCM.DC.SUM ---
Providers Date of Admission: 05/19/22 Date of Discharge: 06/19/22 Primary Care Physician: Geovanna Mott, [employer]-Jeremiah Consultations 05/19/22 21:48 Consult: Hat Body Inspector / Pulmonary Medicine Routine Consulting Provider: Price Brower Reason for Consult: Septic shock, resp failure, EMERGENT Consult: No MD Notified: Yes Date Notified: 05/19/22 Time Notified: 21:49 Method of Notification: Text 05/20/22 03:02 Consult: Onc/Wound/washing machine mechanic Routine Comment: Right Heel decubitus ulcer 05/22/22 09:50 Consult: Infectious Disease Routine Consulting Provider: Alejandro Mosher Reason for Consult: ESBL E. coli EMERGENT Consult: No MD Notified: Yes Date Notified: 05/22/22 Time Notified: 10:45 Method of Notification: Answering Service 06/04/22 12:47 Consult: Hat Body Inspector / Pulmonary Medicine Routine Consulting Provider: Pulmonary Medicine gilmar [place] Reason for Consult: hypotension, worsening respiratory failure EMERGENT Consult: No MD Notified: Yes Date Notified: 06/04/22 Time Notified: 12:47 Method of Notification: Text 06/04/22 18:17 Consult: Infectious Disease Routine Consulting Provider: Alejandro Mosher Reason for Consult: ?mucormycosis (black adherent material on tongue; scraped and sent for cult EMERGENT Consult: No MD Notified: Yes Date Notified: 06/05/22 Time Notified: 10:24 Method of Notification: Text 06/09/22 14:30 Consult: Gastroenterology Routine Consulting Provider: Torrey Mccrary Reason for Consult: PEG placement EMERGENT Consult: No MD Notified: Yes Date Notified: 06/09/22 Time Notified: 17:30 Method of Notification: Verbal 06/09/22 14:32 Consult: ENT Routine Consulting Provider: Ronni Goins Reason for Consult: Tracheostomy EMERGENT Consult: No MD Notified: Yes Date Notified: 06/09/22 Time Notified: 14:32 Method of Notification: phone Reason For Visit: SEVERE SEPSIS Diagnosis Discharge Diagnosis (1) Septic shock: Status: Acute Code(s): A41.9 - Sepsis, unspecified organism; R65.21 - Severe sepsis with septic shock Plan #Septick shock 2/2 ESBL ecoli pna-resolved. 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 #Coronary artery disease status post previous stenting #Hypothyroidism Medications at Discharge Home Medications aspirin 81 mg tablet,delayed release (Adult Aspirin Regimen) 81 mg PO DAILY HEART HEALTH 05/17/21 levothyroxine 100 mcg tablet (Synthroid) 125 mcg PO DAILY THYROID 12/13/21 albuterol sulfate 90 mcg/actuation aerosol inhaler 2 puff inhalation Q6H PRN Shortness Of Breath 12/19/21 ferrous sulfate 325 mg (65 mg iron) tablet (FeroSul) 325 mg PO DAILY ANEMIA 12/28/21 nystatin 100,000 unit/gram topical powder (Nyamyc) 1 applic topical TID IRRITATION 12/28/21 apixaban 5 mg tablet (Eliquis) 5 mg PO BID BLOOD THINNER 04/26/22 arginine 7 gram-glutam 7 gram-CaHMB 1.5 sfvq-pjvct-ys-min oral pwd pkt (Say (with collagen)) 1 packet PO BID WOUND HEALING 04/26/22 diltiazem HCl 60 mg tablet 60 mg PO Q6 #0 tabs 05/10/22 amiodarone 200 mg tablet 200 mg NG BID 30 days #0 tabs 06/19/22 arginine 7 gram-glutam 7 gram-CaHMB 1.5 ifre-teorm-pp-min oral pwd pkt (Say (with collagen)) 1 packet G-tube BIDCM #0 ea 06/19/22 chlorhexidine gluconate 2 % towelette 1 towel topical DAILY #0 ea 06/19/22 chlorhexidine gluconate 2 % towelette 15 ml PO BID #0 ea 06/19/22 furosemide 10 mg/mL oral solution 20 mg (2 mL) G-tube BIDLX 30 days #0 mL 06/19/22 insulin detemir U-100 100 unit/mL (3 mL) subcutaneous pen (Levemir FlexTouch U-100 Insulin) 15 unit (0.15 mL) subcut DAILY blood sugar #15 mL 06/19/22 insulin lispro 100 unit/mL subcutaneous pen (Humalog KwikPen (U-100) Insulin) See Protocol subcut Q6 30 days #0 mL 06/19/22 ipratropium bromide 0.02 % solution for inhalation 0.5 mg (2.5 mL) inhalation Q6H.RT 30 days #0 mL 06/19/22 lansoprazole 15 mg capsule,delayed release 30 mg feeding tube DAILY 30 days #0 caps 06/19/22 metoclopramide HCl 10 mg tablet (Reglan) 10 mg PO Q6H nausea and vomiting #90 tabs 06/19/22 metoprolol tartrate 25 mg tablet 25 mg PO BID #0 tabs 06/19/22 polyethylene glycol 3350 17 gram oral powder packet 17 g PO DAILY CONSTIPATION #100 ea 06/19/22 potassium chloride 20 mEq tablet,extended release(part/cryst) (Klor-Con M) 40 meq PO DAILY SUPPLEMENT #30 tabs 06/19/22 sennosides 8.6 mg-docusate sodium 50 mg tablet (Senna-S) 1 tab PO BID STOOL SOFTNER #60 tabs 06/19/22 Hospital Course Procedures 2-D Echocardiogram (2-D Echocardiogram (05/08/2022 EF 55% with small pericardial effusion, PASP 50 mmHg, 2+ tricuspid insufficiency)), Peg tube placement, PICC line placement and - (06/01 modified barium swallow after first extubation when she failed. Brain murmur 05/12 with chronic changes. Head/neck CTA with stenosis of right carotid bulb and stenosis of right external carotid artery. Brain CT/ negative for acute proc. Trach placement. Intubation x2) Summary of Care Provided Minutes Spent on Discharge: 45 Hospital Course: 67F w/ hx of HFpEF, pulm HTN, hypothyroidism, COPD, SILVER, CKD stage IIIb, afib, CAD status post previous stenting, chronic anemia, Dry gangrene of LLE s/p recent AKA, DMII presented to [facility] 05/19/22 from SNF w/ SOB and hypotension. She had a prolonged and complicated hospital course and initially was found to have septic shock 2/2 ESBL ecoli pneumonia and required intubation and levophed. Infectious disease has been consulted and she improved with meropenem. She initially was difficult to wean from ventilator however ultimately she passed a spontaneous breathing trial and was extubated 05/28/2022. She was found to have an infection of her left arm that grew Pseudomonas, staph hemolyticus, Staph epidermidis and this was treated with vancomycin and meropenem. She was transferred to the floor as she continued to improve and was on 4 L of O2 however became more weak and confused. On 06/04 she had increasing O2 requirements despite BiPAP and required reintubation and transferred to the ICU. Repeat cultures obtained and vancomycin was restarted as well as ID reconsulted for evaluation. Repeat respiratory culture grew staph hemolyticus and she had a leg wound that grew Staphylococcus hemolyticus and VRE. She was on Cipro and linezolid per ID recommendations and improved clinically and antibiotics stopped prior to discharge after verbally discussing with infectious disease. She continued to fail spontaneous breathing trials and ultimately family agreeable to tracheostomy and PEG. Trach placed 06/12/2022 and PEG placed 06/13/2022. Had been tolerating tube feeds but began having some elevated residuals. On day of transfer there was a concern about difficulty flushing the PEG however it was found to be kinked under distressing and was working well after that and her Reglan was increased to help with motility. Issue presently nonacute and tube feeds can [facility] to be tit[facility] at [facility]. Hospital course additionally complicated by MIKE on CKD stage IIIb which resolved with treatment of underlying medical problems. Also atrial fibrillation which required IV Amio which was transitioned to amiodarone through the G-tube, metoprolol recently resumed and has been in the process of being titrated. Also had chronic anemia and did require a transfusion that was not found to be bleeding anywhere and was felt to be due to her acute illness on chronic anemia and hemoglobin stabilized. -Recommend following up with vascular surgery on an outpatient basis due to right-sided carotid stenosis -Her Eliquis has been resumed on discharge given her improvement in platelets and stable hemoglobin. Recommend rechecking CBC in 2 to 3 days to evaluate hemoglobin and platelets -Recommend checking BMP in 2 to 3 days to check renal function -May need further up titration of beta-skyler -Has had increasing Reglan dosing to help with bowel motility and tube feed residuals. Would benefit from decreasing ultimate discontinuation once patient is able to tolerate this -Tube feed orders: Would recommend resuming Vital AF 1.2 via PEG at 15mL/hour and increase by 10mL every 8-12 hours as tolerated until goal rate of 55mL/hour is achieved. 100mL H2O flush every 4 hours to provide 1584 calories, 99 g protein, and 1670mL total fluid/day at goal rate. with Say 1 packet down G-tube twice daily -Tracheostomy: Size 6 mm. Ventilator mode: AC, ventilator mode type: VC. Heated circuit with humidity. Settings as followed: Respiratory rate: 12. Tidal volume 450. Peak flow (Vmax) 60. Sensitivity: 3. FiO2: 30%. PEEP: 5 cm of H2O. Trigger type: Volume -Knight catheter in place, routine Knight care. Knight catheter 16 Turkmen placed 06/04/2022 -See additional wound care instructions and wounds noted -PT/OT/speech therapy recommended Physical Exam Narrative General: Awake, cooperative HEENT: Atraumatic Eyes: Eyes open and looking around Neck: Supple Respiratory: No active wheezes or rhonchi Cardiovascular: Tachycardic GI: nondistended Extremities: 1-2+ diffuse edema, unchanged from previously Musculoskeletal: Following commands and moving extremities Neuro: Awake, cooperative Skin: Chronic right lower leg changes Psych: Cooperative Weight / BMI Weight Weight: 102.9 kg Body Mass Index (BMI) 37.8 ABG / Lab / Microbiology Data Result Diagrams: 06/19/22 03:50 06/19/22 03:50 Laboratory: Laboratory Results - last 24 hr 06/18/22 11:51: POC Glucose 197 H 06/18/22 16:57: POC Glucose 200 H 06/19/22 00:01: POC Glucose 171 H 06/19/22 03:50: WBC 10.5, RBC 2.59 L, Hgb 7.6 L, Hct 24.5 L, MCV 94.6, MCH 29.3, MCHC 31.0 L, RDW Std Deviation 59.7 H, RDW Coeff of Magen 17.5 H, Plt Count 154, MPV 10.5, Immature Gran % (Auto) 0.600, Neut % (Auto) 84.1 H, Lymph % (Auto) 8.2 L, Mccurtain % (Auto) 5.5, Eos % (Auto) 1.5, Baso % (Auto) 0.1, Absolute Neuts (auto) 8.8 H, Absolute Lymphs (auto) 0.86, Nucleated RBC % 0 06/19/22 03:50: Sodium 138, Potassium 3.6, Chloride 112 H, Carbon Dioxide 21.0, Anion Gap 5, BUN 46 H, Creatinine 1.25 H, Estim Creat Clear Calc 38.23, Est GFR (MDRD) Af Amer 55 L, Est GFR (MDRD) Non-Af 46 L, BUN/Creatinine Ratio 36.8 H, Glucose 198 H, Calcium 8.8 06/19/22 10:12: POC Glucose 167 H Microbiology: Microbiology 06/04/22 22:25 Blood Culture (Wb) - Arm Left Blood Culture - Final No growth in 5 days. 06/04/22 18:30 Blood Culture (Wb) - Pic Blood Culture - Final No growth in 5 days. 06/05/22 03:52 Wound - Leg, Left Gram Stain - Final 06/05/22 03:52 Wound - Leg, Left Wound Culture - Final Staphylococcus haemolyticus Vancomycin Resist. E. faecium 06/04/22 13:05 Sputum, Induced/Lukens Gram Stain - Final 06/04/22 13:05 Sputum, Induced/Lukens Respiratory Culture - Final Staphylococcus haemolyticus Pseudomonas aeruginosa 06/04/22 20:00 Urine Catheter - Catheter Urine Culture - Final Culture exhibits no growth. 06/05/22 16:40 Stool C. difficile GDH Antigen & Toxins - Final 06/05/22 16:40 Stool C. difficile DNA Amplification - Final 05/28/22 11:30 Suture Gram Stain - Final 05/28/22 11:30 Suture Wound Culture - Final Vancomycin Resist. E. faecium Staphylococcus haemolyticus 05/24/22 06:35 Wound - Arm Left Gram Stain - Final 05/24/22 06:35 Wound - Arm Left Wound Culture - Final Pseudomonas aeruginosa Staphylococcus haemolyticus Staphylococcus epidermidis 05/24/22 06:35 Wound - Arm Left Anaerobic Culture - Final No anaerobic bacteria isolated. 05/19/22 14:30 Blood Culture (Wb) - Port Blood Culture - Final No growth in 5 days. 05/19/22 13:45 Blood Culture (Wb) - Port Blood Culture - Final No growth in 5 days. 05/20/22 17:40 Sputum, Induced/Lukens Gram Stain - Final 05/20/22 17:40 Sputum, Induced/Lukens Respiratory Culture - Final Escherichia coli 05/19/22 22:20 Transtracheal Aspirate Gram Stain - Final 05/19/22 22:20 Transtracheal Aspirate Respiratory Culture - Final Escherichia coli 05/20/22 04:25 Urine Catheter - Knight Urine Culture - Final Culture exhibits no growth. 05/20/22 04:25 Urine Catheter - Knight Legionella Antigen - Final 05/20/22 04:25 Urine Catheter - Knight Streptococcus pneumoniae Antigen (M - Final 05/19/22 22:20 Mucosa - Nasopharyngeal Respiratory Panel (PCR) - Final D/C Instructions Discharge Diet: - (Would recommend resuming Vital AF 1.2 via PEG at 15mL/hour and increase by 10mL every 8-12 hours as tolerated until goal rate of 55mL/hour is achieved. 100mL H2O flush every 4 hours to provide 1584 calories, 99 g protein, and 1670mL total fluid/day at goal rate. with Say 1 packet down G-tubeBID) Meaningful Use Info Meaningful Use Diagnoses (Choose all that apply): None applicable Discharge Plan Admission Admit Date/Time: 05/19/22 14:33 Primary Reason for Your Visit: SOB and hypotension Attending Provider: Coco Romero Primary Care Provider: Geovanna Mott [employer] Consulting Providers: Price Brower ; Lalo Cooper ; Quynh Aldrich ; Coco Romero ; Nagi Ayala ; Alejandro Mosher ; Santos Mcwilliams ; Esdras Esparza ; Nestor Beasley ; Linette Gage [employer] ; Ronni Goins ; Torrey Mccrary Instructions Patient Instructions: Adjusting to Your Tracheostomy Tube Additional Instructions / Restrictions: -Recommend following up with vascular surgery on an outpatient basis due to right-sided carotid stenosis -Her Eliquis has been resumed on discharge given her improvement in platelets and stable hemoglobin. Recommend rechecking CBC in 2 to 3 days to evaluate hemoglobin and platelets -Recommend checking BMP in 2 to 3 days to check renal function -May need further up titration of beta-skyler -Has had increasing Reglan dosing to help with bowel motility and tube feed residuals. Would benefit from decreasing ultimate discontinuation once patient is able to tolerate this -Tube feed orders: Would recommend resuming Vital AF 1.2 via PEG at 15mL/hour and increase by 10mL every 8-12 hours as tolerated until goal rate of 55mL/hour is achieved. 100mL H2O flush every 4 hours to provide 1584 calories, 99 g protein, and 1670mL total fluid/day at goal rate. with Say 1 packet down G-tube twice daily -Tracheostomy: Size 6 mm. Ventilator mode: AC, ventilator mode type: VC. Heated circuit with humidity. Settings as followed: Respiratory rate: 12. Tidal volume 450. Peak flow (Vmax) 60. Sensitivity: 3. FiO2: 30%. PEEP: 5 cm of H2O. Trigger type: Volume -Knight catheter in place, routine Knight care. Knight catheter 16 Turkmen placed 06/04/2022 -See additional wound care instructions and wounds noted -PT/OT/speech therapy recommended Discharge Orders/Prescriptions Prescriptions: New amiodarone 200 mg Tablet 200 mg NG BID 30 Days Qty: 0 0RF chlorhexidine gluconate 2 % Towelette 15 ml PO BID Qty: 0 0RF chlorhexidine gluconate 2 % Towelette 1 towel topical DAILY Qty: 0 0RF furosemide 10 mg/mL Solution 20 mg G-tube BIDLX 30 Days Qty: 0 0RF ipratropium bromide 0.02 % Solution 0.5 mg inhalation Q6H.RT 30 Days Qty: 0 0RF insulin lispro [Humalog KwikPen Insulin] 100 unit/mL Insulin Pen See Protocol subcut Q6 30 Days Qty: 0 0RF Protocol: 4. Sliding Scale Insulin High-Med Dosing Condition: 150-199 mg/dl = 2 units Condition: 200-259 mg/dl = 4 units Condition: 260-324 mg/dl = 6 units Condition: 325-374 mg/dl = 8 units Condition: 375-409 mg/dl = 10 units Condition: 410-449 mg/dl = 11 units Condition: Greater than 449 call physician Protocol Text: - Use for Total Daily Dose of Insulin 56-80 units - Patient who are insulin resistant or septic HIGH MEDIUM DOSING ALGORITHM Say (with collagen) 7-7-1.5 gram Powder In Packet 1 packet G-tube BIDCM Qty: 0 0RF lansoprazole 15 mg Capsule,Delayed Release(Dr/Ec) 30 mg feeding tube DAILY 30 Days Qty: 0 0RF metoclopramide HCl [Reglan] 10 mg tablet 10 mg PO Q6H Qty: 90 0RF Continued aspirin [Adult Aspirin Regimen] 81 mg tablet,delayed release (DR/EC) 81 mg PO DAILY levothyroxine [Synthroid] 100 mcg tablet 125 mcg PO DAILY albuterol sulfate 90 mcg/actuation HFA aerosol inhaler 2 puff INHALATION Q6H PRN (Reason: Shortness Of Breath) ferrous sulfate [FeroSul] 325 mg (65 mg iron) tablet 325 mg PO DAILY nystatin [Nyamyc] 100,000 unit/gram powder 1 applic topical TID Protocol: *Topical Application Instructions APPLICATION INSTRUCTIONS: apply to groin tid for redness Eliquis 5 mg tablet 5 mg PO BID Say (with collagen) 7-7-1.5 gram powder in packet 1 packet PO BID diltiazem HCl 60 mg Tablet 60 mg PO Q6 Qty: 0 0RF polyethylene glycol 3350 17 gram powder in packet 17 g PO DAILY Qty: 100 0RF Rx Instructions: Hold for diarrhea sennosides-docusate sodium [Senna-S] 8.6-50 mg Tablet 1 tab PO BID Qty: 60 0RF Rx Instructions: hold for diarrhea Changed potassium chloride [Klor-Con M20] 20 mEq tablet,ER particles/crystals 40 meq PO DAILY Qty: 30 0RF metoprolol tartrate 25 mg Tablet 25 mg PO BID Qty: 0 0RF Levemir FlexTouch U-100 Insuln 100 unit/mL (3 mL) insulin pen 15 unit SUBCUT DAILY Qty: 15 0RF Discontinued trazodone 100 mg tablet 150 mg PO QHS montelukast 10 mg tablet 10 mg PO QHS omeprazole 40 mg Capsule,Delayed Release(Dr/Ec) 40 mg PO BID insulin lispro [Humalog KwikPen Insulin] 100 unit/mL insulin pen 10 unit subcut TIDAC paroxetine HCl [Paxil] 20 mg Tablet 20 mg PO DAILY gabapentin 300 mg capsule 300 mg PO TID mirtazapine 15 mg tablet 15 mg PO QHS acetaminophen [Tylenol] 325 mg tablet 650 mg PO Q6H PRN (Reason: PAIN/FEVER) bumetanide 0.5 mg Tablet 1 mg PO TID Qty: 0 0RF Referrals / Follow Up: Geovanna Mott [employer], [employer] [Primary Care Provider] - Disposition Disposition (needs filled in before D/C Order can be placed): Nursing Home Acute Care Charges/Coding Visit Charges Inpatient E&M: 47140 Disch Hosp >30min
--- NOTE | 2022-06-19 11:21 | CASEMGMT ---
Addendum entered by Joann Jacques 06/19/22 11:30: Discharge summary also faxed to [facility] and sent via [facility]. Addendum entered by Joann Jacques 06/19/22 11:24: Confirmation received via fax that fax to [facility] went through successfully. Original Note: CHRISTELLE WHEELER NOTE: Signed med list and transfer to extended care form/discharge orders faxed to [facility] at this time @ [phone]. These were also sent to [facility] via [facility]. Transport is here to pick pt up to transfer her to [facility]. Call placed to pt's son, Chava. He was made aware pt is being transferred to [facility] at this time. He denies having any questions and thanked CHRISTELLE WHEELER for calling. Aaron BELLN CHRISTELLE WHEELER
--- NOTE | 2022-06-19 11:48 | NURSING ---
Report given to RN at [facility] at 1030. RN at [facility] asked for discharge paperwork to be faxed which was being sent at that time.
[2022-06-19 11:55] LABS: Bedside Glucose 169 mg/dL (74-106)
== END 2022-06-19 11:30 | DRG 4 ==
LOC: ED 14:10 → ICU 15:14 → PCU 06-02 13:35 → ICU 06-05 06:33 → PCU 06-05 17:30
PROVIDERS: Family Medicine; Internal Medicine; Internal Medicine Critical Care Medicine; Internal Medicine Gastroenterology; Internal Medicine Infectious Disease; Otolaryngology; Student in an Organized Health Care Education/Training Program; Admitting Provider Family Medicine; Emergency Provider Emergency Medicine; PCP Nurse Practitioner Adult Health; Visit Provider Internal Medicine
PROC: 0B110F4 Bypass Trachea to Cutaneous with Tracheostomy Device, Open Approach (ICD-10-PCS; principal; 2022-06-12 11:45)
PROC: 0DJ08ZZ Inspection of Upper Intestinal Tract, Via Natural or Artificial Opening Endoscopic (ICD-10-PCS; CPT 43235; principal; 2022-06-13 11:40)
DX: A41.51 Sepsis due to Escherichia coli [E. coli] (principal); R65.21 Severe sepsis with septic shock; I50.33 Acute on chronic diastolic (congestive) heart failure; G93.41 Metabolic encephalopathy; J15.29 Pneumonia due to other staphylococcus; J15.5 Pneumonia due to Escherichia coli; J96.21 Acute and chronic respiratory failure with hypoxia; J96.22 Acute and chronic respiratory failure with hypercapnia; J44.0 Chronic obstructive pulmonary disease with (acute) lower respiratory infection; N17.9 Acute kidney failure, unspecified; L97.419 Non-pressure chronic ulcer of right heel and midfoot with unspecified severity; J44.1 Chronic obstructive pulmonary disease with (acute) exacerbation; Z99.11 Dependence on respirator [ventilator] status; I13.0 Hypertensive heart and chronic kidney disease with heart failure and stage 1 through stage 4 chronic kidney disease, or unspecified chronic kidney disease; I48.20 Chronic atrial fibrillation, unspecified; T87.44 Infection of amputation stump, left lower extremity; K56.7 Ileus, unspecified; E87.0 Hyperosmolality and hypernatremia; J98.11 Atelectasis; Z16.12 Extended spectrum beta lactamase (ESBL) resistance; Z16.10 Resistance to unspecified beta lactam antibiotics; Z16.21 Resistance to vancomycin; D69.6 Thrombocytopenia, unspecified; I27.20 Pulmonary hypertension, unspecified; E11.42 Type 2 diabetes mellitus with diabetic polyneuropathy; E11.621 Type 2 diabetes mellitus with foot ulcer; I48.0 Paroxysmal atrial fibrillation; E66.01 Morbid (severe) obesity due to excess calories; E11.22 Type 2 diabetes mellitus with diabetic chronic kidney disease; Z79.4 Long term (current) use of insulin; N18.32 Chronic kidney disease, stage 3b; E11.65 Type 2 diabetes mellitus with hyperglycemia; E11.622 Type 2 diabetes mellitus with other skin ulcer; E11.43 Type 2 diabetes mellitus with diabetic autonomic (poly)neuropathy; Z89.612 Acquired absence of left leg above knee; Z93.1 Gastrostomy status; K31.84 Gastroparesis; E78.5 Hyperlipidemia, unspecified; E87.5 Hyperkalemia; K21.9 Gastro-esophageal reflux disease without esophagitis; E03.9 Hypothyroidism, unspecified; D64.9 Anemia, unspecified; I25.10 Atherosclerotic heart disease of native coronary artery without angina pectoris; E87.8 Other disorders of electrolyte and fluid balance, not elsewhere classified; G47.33 Obstructive sleep apnea (adult) (pediatric); E87.6 Hypokalemia; I65.21 Occlusion and stenosis of right carotid artery; S51.002A Unspecified open wound of left elbow, initial encounter; R19.7 Diarrhea, unspecified; B95.62 Methicillin resistant Staphylococcus aureus infection as the cause of diseases classified elsewhere; B96.5 Pseudomonas (aeruginosa) (mallei) (pseudomallei) as the cause of diseases classified elsewhere; B95.2 Enterococcus as the cause of diseases classified elsewhere; R13.10 Dysphagia, unspecified; Z68.37 Body mass index [BMI] 37.0-37.9, adult; Z91.199 Patient's noncompliance with other medical treatment and regimen due to unspecified reason; Z99.81 Dependence on supplemental oxygen; Z79.82 Long term (current) use of aspirin; Z79.01 Long term (current) use of anticoagulants; Z79.899 Other long term (current) drug therapy; Z79.890 Hormone replacement therapy; Z87.891 Personal history of nicotine dependence; Z95.5 Presence of coronary angioplasty implant and graft
CPT/HCPCS: 31500; 31720; 36415; 36569; 36600; 71045; 74018; 74230; 80048; 80053; 80076; 80202; 81001; 82436; 82550; 82570; 82803; 82962; 83010; 83605; 83615; 83880; 84100; 84133; 84145; 84300; 84439; 84443; 84478; 84484; 85025; 85045; 85379; 85384; 85610; 85730; 86644; 86850; 86900; 86901; 86920; 86922; 87040; 87070; 87075; 87077; 87086; 87102; 87186; 87205; 87206; 87449; 87493; 87633; 87635; 92526; 92610; 92611; 93005; 94002; 94003; 94640; 94660; 94668; 94762; 97110; 97162; 97163; 97166; 97530; 97535; 97802; 97803; 99152; 99153; 99252; 99285; J2185; J7030; J7040; J7050; P9016; A4216; C1751; G0463; J0610; J0744; J1940; J2405; J3010; J3490; J7799; U0003; U0005